=== PATIENT | female | born 1940 | race Caucasian/White ===

== ENCOUNTER 2023-03-04 10:50 | Emergency (ER) | payer MEDICARE, OTHER, SELFPAY ==
[2023-03-04 10:54] VITALS: BP 177/61; PULSE 73; RESP 20; TEMP 36.8; O2SAT 96; BMI 34.6
--- NOTE | 2023-03-04 11:02 | ED.GENADUL1 ---
HPI - General Adult General Chief complaint: Extremity Injury, Upper Stated complaint: UPPER EXTREMITY PAIN RIGHT PINKIE Time Seen by Provider: 03/04/23 10:54 Source: family Mode of arrival: Wheelchair Limitations: no limitations History of Present Illness HPI narrative: 82-year-old female presents for raised area on the right 3rd finger. She's had it for a few days. She states she has arthritis her this happened to her before and she states her doctor had to open it. She has not had any drainage or any injury to it.symptom is continuous. Pain is mild. Related Data Home Medications Medication Instructions Recorded Confirmed albuterol sulfate 2.5 mg/3 mL 2.5 mg continuous nebulization Q4H 03/04/23 03/04/23 (0.083 %) solution for nebulization PRN shortness of breath or wheezing albuterol sulfate 90 mcg/actuation 2 puff inhalation Q4H PRN 03/04/23 03/04/23 aerosol inhaler shortness of breath or wheezing amlodipine 5 mg tablet 5 mg PO DAILY 03/04/23 03/04/23 anastrozole 1 mg tablet 1 mg PO DAILY 03/04/23 03/04/23 apixaban 5 mg tablet (Eliquis) 5 mg PO BID 03/04/23 03/04/23 aspirin 81 mg tablet,delayed 81 mg PO DAILY 03/04/23 03/04/23 release (Adult Low Dose Aspirin) furosemide 40 mg tablet 40 mg PO Q12H 03/04/23 03/04/23 glimepiride 4 mg tablet 4 mg PO BID 03/04/23 03/04/23 hydralazine 100 mg tablet 100 mg PO TID 03/04/23 03/04/23 isosorbide mononitrate 60 mg 60 mg PO DAILY 03/04/23 03/04/23 tablet,extended release 24 hr levothyroxine 112 mcg tablet 112 mcg PO DAILY 03/04/23 03/04/23 liothyronine 5 mcg tablet 10 mcg PO DAILY 03/04/23 03/04/23 meloxicam 15 mg tablet 15 mg PO DAILY 03/04/23 03/04/23 metformin 500 mg tablet 500 mg PO BID 03/04/23 03/04/23 metoprolol succinate 200 mg 200 mg PO DAILY 03/04/23 03/04/23 tablet,extended release 24 hr simvastatin 20 mg tablet 20 mg PO BEDTIME 03/04/23 03/04/23 sucralfate 1 gram tablet 1 g PO QID 03/04/23 03/04/23 Previous Rx's Medication Instructions Recorded sulfamethoxazole 800 1 tab PO BID #14 tabs 03/04/23 mg-trimethoprim 160 mg tablet (Bactrim DS) Allergies Allergy/AdvReac Type Severity Reaction Status Date / Time oxycodone AdvReac Severe nausea and Verified 03/04/23 11:00 vomiting tramadol AdvReac Severe Vomiting Verified 03/04/23 11:00 cefdinir AdvReac Unknown Vomiting Verified 03/04/23 11:00 ciprofloxacin AdvReac Unknown Vomiting Verified 03/04/23 11:00 Review of Systems ROS Narrative A ten point review of systems is negative except as noted above. Exam Narrative Exam Narrative: Nurses note and vital signs reviewed and patient is not hypoxic. General: The patient appears well and in no apparent distress. Patient is resting comfortably on cart. Skin: Warm, dry, no pallor noted. Head: Normocephalic, atraumatic Eye: Normal conjunctiva, no drainage Ears, Nose, Mouth, and Throat: oral mucosa is moist. Nares patent. Cardiovascular: not tachycardic Respiratory: Patient is in no distress, no accessory muscle use, lungs are clear to auscultation, no wheezing, rales or rhonchi Back: non-tender GI: soft and nontender Musculoskeletal: right 3rd finger over the DIP extensor side has plates raised area which is tender. No open areas or drainage. Neurological: A&O, normal speech Psychiatric: Cooperative Constitutional Vital Signs - 24 hr 03/04/23 10:54 Temperature 98.3 F Pulse Rate [Monitor] 73 Respiratory Rate 20 Blood Pressure [Left Arm] 177/61 H Pulse Oximetry 96 Course Vital Signs Vital signs: Vital Signs Temperature 98.3 F 03/04/23 10:54 Pulse Rate 73 03/04/23 10:54 Respiratory Rate 20 03/04/23 10:54 Blood Pressure 177/61 H 03/04/23 10:54 Pulse Oximetry 96 03/04/23 10:54 Temperature 98.3 F 03/04/23 10:54 Pulse Rate 73 03/04/23 10:54 Respiratory Rate 20 03/04/23 10:54 Blood Pressure 177/61 H 03/04/23 10:54 Pulse Oximetry 96 03/04/23 10:54 Medical Decision Making MDM Narrative Medical decision making narrative: the abscess has been opened and drained of purulent material. She'll use warm soaks four times a day and was prescribed Bactrim because of ALLERGIES. She'll follow-up with her doctor. Treatment diagnosis and follow-up were discussed with the patient. Differential Diagnosis Differential Diagnosis: arthritis, abscess, cellulitis Discharge Plan Discharge Chief Complaint: Extremity Injury, Upper Clinical Impression: Abscess Patient Disposition: Home, Self-Care Time of Disposition Decision: 11:35 Condition: Good Mode of Transportation: Private Vehicle Prescriptions / Home Meds: New sulfamethoxazole-trimethoprim [Bactrim DS] 800-160 mg tablet 1 tab PO BID Qty: 14 0RF No Action albuterol sulfate 2.5 mg /3 mL (0.083 %) solution for nebulization 2.5 mg continuous nebulization Q4H PRN (Reason: shortness of breath or wheezing) albuterol sulfate 90 mcg/actuation HFA aerosol inhaler 2 puff INHALATION Q4H PRN (Reason: shortness of breath or wheezing) amlodipine 5 mg tablet 5 mg PO DAILY anastrozole 1 mg tablet 1 mg PO DAILY aspirin [Adult Low Dose Aspirin] 81 mg tablet,delayed release (DR/EC) 81 mg PO DAILY Eliquis 5 mg tablet 5 mg PO BID furosemide 40 mg tablet 40 mg PO Q12H glimepiride 4 mg tablet 4 mg PO BID hydralazine 100 mg tablet 100 mg PO TID isosorbide mononitrate 60 mg tablet extended release 24 hr 60 mg PO DAILY levothyroxine 112 mcg tablet 112 mcg PO DAILY liothyronine 5 mcg tablet 10 mcg PO DAILY meloxicam 15 mg tablet 15 mg PO DAILY metformin 500 mg tablet 500 mg PO BID metoprolol succinate 200 mg tablet extended release 24 hr 200 mg PO DAILY simvastatin 20 mg tablet 20 mg PO BEDTIME sucralfate 1 gram tablet 1 g PO QID Instructions: Abscess (ED) Additional Instructions: warm soaks four times a day Stand Alone Forms: Portal Instructions Referrals: Gil Blake MD [Primary Care Provider] - 1 week
== END 2023-03-04 11:54 | disposition home or self-care (01) ==
PROVIDERS: Emergency Provider Emergency Medicine; PCP Family Medicine
DX: L02.511 Cutaneous abscess of right hand (principal); Z79.899 Other long term (current) drug therapy; Z79.890 Hormone replacement therapy; M19.90 Unspecified osteoarthritis, unspecified site; Z79.82 Long term (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 aspirin
CPT/HCPCS: 99282

== ENCOUNTER 2023-03-17 06:45 | Outpatient (OUT) | payer MEDICARE, OTHER, SELFPAY ==
[2023-03-17 09:45] LABS: Estimated Average Glucose 160 mg/dL; Glycohemoglobin A1C 7.2 % (4.5-6.2)
== END 2023-03-17 06:46 | disposition home or self-care (01) ==
LOC: LAB 06:48
PROVIDERS: PCP Family Medicine; Visit Provider Family Medicine
DX: R73.09 Other abnormal glucose (principal)
CPT/HCPCS: 36415; 83036

== ENCOUNTER 2023-03-27 07:29 | Outpatient (OUT) | payer MEDICARE, OTHER, SELFPAY ==
[2023-03-27 14:17] VITALS: BP 158/71; PULSE 60; RESP 20; TEMP 37.1; O2SAT 97
--- NOTE | 2023-03-27 14:25 | PC.NURSE ---
1417: Pt. brought to [facility] via w/c per volunteer. Pt. assisted into recliner chair. VSS. Allergies verified. Offered beverage or snack, pt. declines. Awaiting lab results before med administration.
[2023-03-27 14:37] LABS: Calcium 9.5 mg/dL (8.5-10.1); Estimated GFR (African America 49 (>=60); Estimated GFR (Non-African Ame 40 (>=60)
[2023-03-27] MEDS: DENOSUMAB 60 MG/ML SYRINGE SUBQ (14:56)
--- NOTE | 2023-03-27 15:02 | PC.NURSE ---
1456: Pt. medicated with Prolia 60mg SQ to left arm. No bleeding to site. Pt. tolerated without c/o. 1501: Pt. without c/o and denies adverse reaction from previous injections of med. [facility] to await son to pick her up for d/c to home.
== END 2023-03-27 07:30 | disposition home or self-care (01) ==
LOC: LAB 07:30
PROVIDERS: PCP Family Medicine; Visit Provider Family Medicine
DX: M85.80 Other specified disorders of bone density and structure, unspecified site (principal)
CPT/HCPCS: 36415; 82310; 82565; 96372; J0897

== ENCOUNTER 2023-05-10 14:01 | Outpatient (OUT) | payer MEDICARE, OTHER, SELFPAY ==
[2023-05-10 14:33] LABS: Bilirubin Urine NEGATIVE (NEGATIVE); Blood Urine NEGATIVE (NEGATIVE); Clarity Urine CLEAR (CLEAR); Color Urine LT. YELLOW (YELLOW); Glucose Urine UA NEGATIVE (NEGATIVE); Ketones Urine NEGATIVE (NEGATIVE); Leukocyte Esterase Urine LARGE (NEGATIVE); Nitrite Urine NEGATIVE (NEGATIVE); Protein Urine NEGATIVE (NEG/TRACE); Urobilinogen Urine 0.2 EU/dL (0.2-1.0)
[2023-05-10 15:05] LABS: Bacteria Urine SMALL #/HPF (NONE SEEN); Cast Seen? NONE SEEN #/LPF (NONE SEEN); Crystals Seen? None Seen #/HPF (None Seen); Mucus Urine NONE SEEN (NONE SEEN); RBC Urine 0-2 #/HPF (0-2); Squamous Epithelial Cell Urine FEW #/LPF (NONE/RARE)
== END 2023-05-10 14:02 | disposition home or self-care (01) ==
LOC: LAB 14:05
PROVIDERS: PCP Family Medicine; Visit Provider Family Medicine
DX: N18.2 Chronic kidney disease, stage 2 (mild) (principal); R82.998 Other abnormal findings in urine
CPT/HCPCS: 81001; 87086

== ENCOUNTER 2023-06-08 10:28 | Outpatient (OUT) | payer MEDICARE, OTHER, SELFPAY ==
[2023-06-08 11:28] LABS: Basophils Percent Auto 0.3 % (0.2-2.0); Eosinophils Absolute Auto 0.2 10^3/uL (0.0-0.7); Eosinophils Percent Auto 1.6 % (0.9-7.0); Hematocrit 34.7 % (36.0-48.0); Hemoglobin 11.1 g/dL (12.0-16.0); Immature Granulocytes Abs Auto 0.07 10^3/uL (0.00-0.03); Immature Granulocytes Pct Auto 0.6 % (0.0-0.5); Lymphocytes Percent Auto 18.8 % (20.5-60.0); Mean Corpuscular Hemoglobin 30.2 pg (26.7-34.0); Mean Corpuscular Volume 94.6 fL (81.0-99.0); Mean Platelet Volume 9.5 fL (9.5-13.5); Monocytes Absolute Auto 1.1 10^3/uL (0.3-0.8); Neutrophils Absolute Auto 7.5 10^3/uL (1.4-6.5); Neutrophils Percent Auto 68.7 % (43.0-75.0); Platelet Count 245 10^3/uL (150-450); Red Blood Count 3.67 10^6/uL (4.20-5.40); Red Cell Distribution Width 13.8 % (11.0-15.0); White Blood Count 10.9 10^3/uL (4.0-11.0)
[2023-06-08 12:09] LABS: Alanine Aminotransferase 18 U/L (14-59); Albumin Globulin Ratio 0.7; Albumin Level 3.1 g/dL (3.4-5.0); Alkaline Phosphatase 74 U/L (46-116); Anion Gap 13.8; Aspartate Amino Transferase 12 U/L (15-37); Bilirubin Total 0.3 mg/dL (0.2-1.0); Calcium 8.8 mg/dL (8.5-10.1); Carbon Dioxide 31.3 mmol/L (21.0-32.0); Chloride 100 mmol/L (98-107); Estimated GFR (African America 48 (>=60); Estimated GFR (Non-African Ame 39 (>=60); Globulin 4.4 g/dL; Glucose 120 mg/dL (74-106); Potassium 3.1 mmol/L (3.5-5.1); Sodium 142 mmol/L (136-145); Total Protein 7.5 g/dL (6.4-8.2); Uric Acid 11.8 mg/dL (2.6-6.0)
== END 2023-06-08 10:29 | disposition home or self-care (01) ==
LOC: LAB 10:30
PROVIDERS: PCP Family Medicine; Visit Provider Internal Medicine Rheumatology
DX: M19.90 Unspecified osteoarthritis, unspecified site (principal); Z79.899 Other long term (current) drug therapy; M10.9 Gout, unspecified
CPT/HCPCS: 36415; 80053; 84550; 85025

== ENCOUNTER 2023-07-22 06:58 | Outpatient (OUT) | payer MEDICARE, OTHER, SELFPAY ==
[2023-07-22 07:23] LABS: Basophils Absolute Auto 0.1 10^3/uL (0.0-0.1); Basophils Percent Auto 0.7 % (0.2-2.0); Eosinophils Absolute Auto 0.2 10^3/uL (0.0-0.7); Eosinophils Percent Auto 1.8 % (0.9-7.0); Hematocrit 35.1 % (36.0-48.0); Hemoglobin 10.9 g/dL (12.0-16.0); Immature Granulocytes Abs Auto 0.03 10^3/uL (0.00-0.03); Immature Granulocytes Pct Auto 0.4 % (0.0-0.5); Lymphocytes Absolute Auto 2.9 10^3/uL (1.2-3.8); Lymphocytes Percent Auto 34.3 % (20.5-60.0); Mean Corpuscular HGB Conc 31.1 g/dL (29.9-35.2); Mean Corpuscular Hemoglobin 30.3 pg (26.7-34.0); Mean Corpuscular Volume 97.5 fL (81.0-99.0); Mean Platelet Volume 9.3 fL (9.5-13.5); Monocytes Percent Auto 11.4 % (1.7-12.0); Neutrophils Absolute Auto 4.3 10^3/uL (1.4-6.5); Neutrophils Percent Auto 51.4 % (43.0-75.0); Platelet Count 243 10^3/uL (150-450); Red Cell Distribution Width 14.4 % (11.0-15.0); White Blood Count 8.3 10^3/uL (4.0-11.0)
[2023-07-22 08:03] LABS: Estimated Average Glucose 160 mg/dL; Glycohemoglobin A1C 7.2 % (4.5-6.2)
[2023-07-22 08:16] LABS: Alanine Aminotransferase 21 U/L (14-59); Albumin Globulin Ratio 0.9; Albumin Level 3.4 g/dL (3.4-5.0); Alkaline Phosphatase 78 U/L (46-116); Anion Gap 13.4; Aspartate Amino Transferase 6 U/L (15-37); BUN Creatinine Ratio 24.5; Bilirubin Total 0.3 mg/dL (0.2-1.0); Calcium 8.9 mg/dL (8.5-10.1); Carbon Dioxide 30.4 mmol/L (21.0-32.0); Chloride 103 mmol/L (98-107); Chol HDL Ratio 4.9; Cholesterol 204 mg/dL (<=200); Estimated GFR (African America 37 (>=60); Estimated GFR (Non-African Ame 30 (>=60); Free T3 2.23 pg/mL (2.18-3.98); Globulin 3.9 g/dL; Glucose 130 mg/dL (74-106); HDL Cholesterol 42 mg/dL (40-60); Potassium 4.8 mmol/L (3.5-5.1); Sodium 142 mmol/L (136-145); Thyroid Stimulating Hormone 1.003 uIU/mL (0.358-3.740); Total Protein 7.3 g/dL (6.4-8.2); Triglycerides 460 mg/dL (<=150)
[2023-07-22 08:41] LABS: LDL Cholesterol Direct 71 mg/dL
== END 2023-07-22 06:59 | disposition home or self-care (01) ==
PROVIDERS: PCP Family Medicine; Visit Provider Family Medicine
DX: I12.9 Hypertensive chronic kidney disease with stage 1 through stage 4 chronic kidney disease, or unspecified chronic kidney disease (principal); N18.2 Chronic kidney disease, stage 2 (mild); J44.9 Chronic obstructive pulmonary disease, unspecified; I25.10 Atherosclerotic heart disease of native coronary artery without angina pectoris; E78.1 Pure hyperglyceridemia; M10.9 Gout, unspecified; M19.90 Unspecified osteoarthritis, unspecified site; Z51.81 Encounter for therapeutic drug level monitoring
CPT/HCPCS: 36415; 80053; 80061; 83036; 83721; 84436; 84443; 84481; 85025

== ENCOUNTER 2023-08-09 15:05 | Outpatient (OUT) | payer MEDICARE, OTHER, SELFPAY ==
[2023-08-09 15:32] LABS: Basophils Percent Auto 0.2 % (0.2-2.0); Eosinophils Absolute Auto 0.2 10^3/uL (0.0-0.7); Eosinophils Percent Auto 2.4 % (0.9-7.0); Hematocrit 34.3 % (36.0-48.0); Hemoglobin 10.9 g/dL (12.0-16.0); Immature Granulocytes Abs Auto 0.05 10^3/uL (0.00-0.03); Immature Granulocytes Pct Auto 0.5 % (0.0-0.5); Lymphocytes Absolute Auto 2.4 10^3/uL (1.2-3.8); Lymphocytes Percent Auto 26.6 % (20.5-60.0); Mean Corpuscular HGB Conc 31.8 g/dL (29.9-35.2); Mean Corpuscular Hemoglobin 30.6 pg (26.7-34.0); Mean Corpuscular Volume 96.3 fL (81.0-99.0); Mean Platelet Volume 9.5 fL (9.5-13.5); Monocytes Absolute Auto 0.9 10^3/uL (0.3-0.8); Monocytes Percent Auto 9.4 % (1.7-12.0); Neutrophils Absolute Auto 5.6 10^3/uL (1.4-6.5); Neutrophils Percent Auto 60.9 % (43.0-75.0); Platelet Count 254 10^3/uL (150-450); Red Blood Count 3.56 10^6/uL (4.20-5.40); Red Cell Distribution Width 14.6 % (11.0-15.0); White Blood Count 9.2 10^3/uL (4.0-11.0)
[2023-08-09 15:56] LABS: Alanine Aminotransferase 23 U/L (14-59); Albumin Globulin Ratio 0.8; Albumin Level 3.2 g/dL (3.4-5.0); Alkaline Phosphatase 81 U/L (46-116); Anion Gap 12.9; Aspartate Amino Transferase 13 U/L (15-37); Bilirubin Total 0.2 mg/dL (0.2-1.0); Calcium 8.6 mg/dL (8.5-10.1); Chloride 103 mmol/L (98-107); Estimated GFR (African America 46 (>=60); Estimated GFR (Non-African Ame 38 (>=60); Globulin 3.9 g/dL; Glucose 184 mg/dL (74-106); Potassium 3.9 mmol/L (3.5-5.1); Sodium 142 mmol/L (136-145); Total Protein 7.1 g/dL (6.4-8.2); Uric Acid 5.5 mg/dL (2.6-6.0)
== END 2023-08-09 15:06 | disposition home or self-care (01) ==
LOC: LAB 15:08
PROVIDERS: PCP Family Medicine; Visit Provider Internal Medicine Rheumatology
DX: M10.9 Gout, unspecified (principal); M19.90 Unspecified osteoarthritis, unspecified site; Z51.81 Encounter for therapeutic drug level monitoring
CPT/HCPCS: 36415; 80053; 84550; 85025

== ENCOUNTER 2023-08-20 07:55 | Inpatient (IN) | payer MEDICARE, OTHER, SELFPAY ==
[2023-08-20] VITALS (15 sets, daily range): BP systolic 110–163; BP diastolic 50–96; PULSE 72–142; RESP 18–26; TEMP 36.7–37.3; O2SAT 82–95; BMI 37.8; BMI 35.9
--- NOTE | 2023-08-20 08:09 | XR_ITS ---
The [address] [address] Patient Name: OSCAR MCLEOD MRN: [id number] date: 1940 Sex: F Assigned Patient Location: ER Current Patient Location: ER Accession/Order Number: [id number] Exam Date: 08/20/2023 08:28 Report Date: 08/20/2023 08:46 At the request of: JULIET GERMAN Procedure: XR chest 1V EXAM: XR chest 1V INDICATION: body pain, history of chronic obstructive pulmonary. COMPARISON: Chest radiograph 10/11/2022 TECHNIQUE: Single frontal view of the chest FINDINGS: Normal cardiomediastinal contours. No acute infiltrative process. No pleural effusion or pneumothorax. No acute osseous abnormality. Advanced degenerative changes of the right shoulder. XR/XR chest 1V IMPRESSION: No acute cardiopulmonary process. Electronically authenticated by: MAC COLLINS Date: 08/20/2023 08:46
--- NOTE | 2023-08-20 08:09 | ECG_ITS ---
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
--- NOTE | 2023-08-20 08:10 | ED_ITS ---
HPI - General Adult General Chief complaint: Back Pain/Injury Stated complaint: TOTAL BODY PAIN Time Seen by Provider: 08/20/23 08:04 Source: patient Mode of arrival: ambulance Limitations: physical limitation History of Present Illness HPI narrative: 82-year-old female presents for body pain. She's had this over her whole body continuously for the past four days. No recent injury. She had diarrhea several weeks ago but that resolved and she's had no vomiting or cough and she doesn't complain of shortness of breath. She has a history of chronic obstructive pulmonary disease. Related Data Home Medications Medication Instructions Recorded Confirmed albuterol sulfate 2.5 mg/3 mL 2.5 mg continuous nebulization Q4H 03/04/23 08/20/23 (0.083 %) solution for nebulization PRN shortness of breath or wheezing albuterol sulfate 90 mcg/actuation 2 puff inhalation Q4H PRN 03/04/23 08/20/23 aerosol inhaler shortness of breath or wheezing amlodipine 5 mg tablet 5 mg PO DAILY 03/04/23 08/20/23 anastrozole 1 mg tablet 1 mg PO DAILY 03/04/23 08/20/23 apixaban 5 mg tablet (Eliquis) 5 mg PO BID 03/04/23 08/20/23 aspirin 81 mg tablet,delayed 81 mg PO DAILY 03/04/23 08/20/23 release (Adult Low Dose Aspirin) furosemide 40 mg tablet 40 mg PO Q12H 03/04/23 08/20/23 glimepiride 4 mg tablet 4 mg PO BID 03/04/23 08/20/23 hydralazine 100 mg tablet 100 mg PO TID 03/04/23 08/20/23 isosorbide mononitrate 60 mg 60 mg PO DAILY 03/04/23 08/20/23 tablet,extended release 24 hr levothyroxine 112 mcg tablet 112 mcg PO DAILY 03/04/23 08/20/23 liothyronine 5 mcg tablet 10 mcg PO DAILY 03/04/23 03/04/23 meloxicam 15 mg tablet 15 mg PO DAILY 03/04/23 03/04/23 metformin 500 mg tablet 500 mg PO BID 03/04/23 08/20/23 metoprolol succinate 200 mg 200 mg PO DAILY 03/04/23 08/20/23 tablet,extended release 24 hr simvastatin 20 mg tablet 20 mg PO BEDTIME 03/04/23 08/20/23 sucralfate 1 gram tablet 1 g PO QID 03/04/23 08/20/23 febuxostat 40 mg tablet 40 mg PO DAILY 08/20/23 08/20/23 potassium chloride 20 mEq 20 meq PO BID 08/20/23 08/20/23 tablet,extended release(part/cryst) (Klor-Con M) Previous Rx's Medication Instructions Recorded sulfamethoxazole 800 1 tab PO BID #14 tabs 03/04/23 mg-trimethoprim 160 mg tablet (Bactrim DS) Allergies Allergy/AdvReac Type Severity Reaction Status Date / Time oxycodone AdvReac Severe nausea and Verified 08/20/23 08:04 vomiting tramadol AdvReac Severe Vomiting Verified 08/20/23 08:04 cefdinir AdvReac Unknown Vomiting Verified 08/20/23 08:04 ciprofloxacin AdvReac Unknown Vomiting Verified 08/20/23 08:04 Review of Systems ROS Narrative A ten point review of systems is negative except as noted above. PFSH PFSH Social History Smoking status: Former smoker Exam Narrative Exam Narrative: Nurses note and vital signs reviewed and patient is not hypoxic. General: The patient appears well and in no apparent distress. Patient is resting comfortably on cart. Skin: Warm, dry, no pallor noted. There is no rash noted. Head: Normocephalic, atraumatic Eye: Normal conjunctiva, no drainage Ears, Nose, Mouth, and Throat: oral mucosa is moist. Nares patent. Cardiovascular: Regular Rate and Rhythm Respiratory: Patient is in no distress, no accessory muscle use, lungs are clear to auscultation, no wheezing, rales or rhonchi Back: non-tender GI: soft and nontender Musculoskeletal: The patient has no evidence of calf tenderness, no pitting edema, symmetrical pulses noted bilaterally Neurological: A&O x4, normal speech Psychiatric: Cooperative Constitutional Vital Signs, click to edit/add: Last Vital Signs Temp 98.0 F 08/20/23 09:52 Pulse 77 08/20/23 08:00 Resp 20 08/20/23 08:00 BP 163/58 H 08/20/23 08:00 Pulse Ox 95 08/20/23 09:52 O2 Del Method Room Air 08/20/23 08:28 O2 Flow Rate 2 08/20/23 09:52 Course Vital Signs Vital signs: Vital Signs Temperature 99.1 F 08/20/23 08:00 Pulse Rate 77 08/20/23 08:00 Respiratory Rate 20 08/20/23 08:00 Blood Pressure 163/58 H 08/20/23 08:00 Pulse Oximetry 92 L 08/20/23 08:00 Oxygen Delivery Method Room Air 08/20/23 08:00 Temperature 98.0 F 08/20/23 09:52 Pulse Rate 77 08/20/23 08:00 Respiratory Rate 20 08/20/23 08:00 Blood Pressure 163/58 H 08/20/23 08:00 Pulse Oximetry 95 08/20/23 09:52 Oxygen Delivery Method Room Air 08/20/23 08:28 Oxygen Delivery Flow Rate 2 08/20/23 09:52 Medical Decision Making MDM Narrative Medical decision making narrative: her workup is negative other than very minimally elevated WBC. No evidence of urinary tract infection and Covid and influenza tests are negative. She was given Tylenol No. 3 without improvement and then was given morphine and feels improved. I've avoided anti-inflammatories because she is on Eliquis. She was given the option of observation status versus discharge home and the patient and her family have elected to be kept in the hospital overnight. They have concerns about her being able to ambulate. Findings are discussed with the family. Differential Diagnosis Differential Diagnosis: urinary tract infection, arthralgia, Covid, influenza Lab Data Lab results reviewed: Yes I reviewed the patient's lab results Labs: Lab Results 08/20/23 08/20/23 08/20/23 Range/Units 08:05 08:10 09:10 WBC 14.1 H (4.0-11.0) 10^3/uL RBC 3.71 L (4.20-5.40) 10^6/uL Hgb 11.2 L (12.0-16.0) g/dL Hct 35.3 L (36.0-48.0) % MCV 95.1 (81.0-99.0) fL MCH 30.2 (26.7-34.0) pg MCHC 31.7 (29.9-35.2) g/dL RDW 14.7 (11.0-15.0) % Plt Count 240 (150-450) 10^3/uL MPV 9.6 (9.5-13.5) fL Neut % (Auto) 73.2 (43.0-75.0) % Lymph % (Auto) 13.5 L (20.5-60.0) % [place] % (Auto) 12.3 H (1.7-12.0) % Eos % (Auto) 0.4 L (0.9-7.0) % Baso % (Auto) 0.2 (0.2-2.0) % Neut # (Auto) 10.3 H (1.4-6.5) 10^3/uL Lymph # (Auto) 1.9 (1.2-3.8) 10^3/uL [place] # (Auto) 1.7 H (0.3-0.8) 10^3/uL Eos # (Auto) 0.1 (0.0-0.7) 10^3/uL Baso # (Auto) 0.0 (0.0-0.1) 10^3/uL Abs Immat Gran (auto) 0.05 H (0.00-0.03) 10^3/uL Imm/Tot Granulo (auto) 0.4 (0.0-0.5) % Sodium 140 (136-145) mmol/L Potassium 3.4 L (3.5-5.1) mmol/L Chloride 100 (98-107) mmol/L Carbon Dioxide 30.1 (21.0-32.0) mmol/L Anion Gap 13.3 BUN 24.0 H (7.0-18.0) mg/dL Creatinine 1.16 H (0.55-1.02) mg/dL Est GFR ( Amer) 54 L (>=60) Est GFR (Non-Af Amer) 45 L (>=60) BUN/Creatinine Ratio 20.7 Glucose 164 H (74-106) mg/dL Calcium 9.1 (8.5-10.1) mg/dL Troponin I High Sens 21.8 (4.0-51.3) pg/mL Urine Color Yellow (YELLOW) Urine Clarity Clear (CLEAR) Urine pH 5.5 (5.0-9.0) Ur Specific [place] 1.020 (1.005-1.025) Urine Protein Trace (NEG/TRACE) mg/dL Urine Glucose (UA) Negative (NEGATIVE) mg/dL Urine Ketones Negative (NEGATIVE) mg/dL Urine Occult Blood Negative (NEGATIVE) Urine Nitrite Negative (NEGATIVE) Urine Bilirubin Negative (NEGATIVE) Urine Urobilinogen 0.2 (0.2-1.0) EU/dL Ur Leukocyte Esterase Negative (NEGATIVE) Urine RBC None seen (0-2) #/HPF Urine WBC None seen (NONE SEEN) #/HPF Ur Squamous Epith Cells Few A (NONE/RARE) #/LPF Urine Bacteria None seen (NONE SEEN) #/HPF Urine Mucus None seen (NONE SEEN) SARS-CoV-2 (PCR) Negative (NEGATIVE) Influenza Type A Ag Negative Influenza Type B Ag Negative Imaging Data Chest x-ray: Radiologist's impression: Procedure: XR chest 1V EXAM: XR chest 1V INDICATION: body pain, history of chronic obstructive pulmonary. COMPARISON: Chest radiograph 10/11/2022 TECHNIQUE: Single frontal view of the chest FINDINGS: Normal cardiomediastinal contours. No acute infiltrative process. No pleural effusion or pneumothorax. No acute osseous abnormality. Advanced degenerative changes of the right shoulder. IMPRESSION: No acute cardiopulmonary process. Electronically authenticated by: MAC COLLINS Date: 08/20/2023 08:46 ECG Data Attestation: I personally reviewed and interpreted this ECG as follows: (EKG on my interpretation shows sinus rhythm with PVCs) Discharge Plan Discharge Chief Complaint: Back Pain/Injury Clinical Impression: Arthralgia, Difficulty in walking Patient Disposition: Admitted as Observation Time of Disposition Decision: 12:18 Condition: Good Prescriptions / Home Meds: No Action albuterol sulfate 2.5 mg /3 mL (0.083 %) solution for nebulization 2.5 mg continuous nebulization Q4H PRN (Reason: shortness of breath or wheezing) albuterol sulfate 90 mcg/actuation HFA aerosol inhaler 2 puff INHALATION Q4H PRN (Reason: shortness of breath or wheezing) amlodipine 5 mg tablet 5 mg PO DAILY anastrozole 1 mg tablet 1 mg PO DAILY aspirin [Adult Low Dose Aspirin] 81 mg tablet,delayed release (DR/EC) 81 mg PO DAILY Eliquis 5 mg tablet 5 mg PO BID furosemide 40 mg tablet 40 mg PO Q12H glimepiride 4 mg tablet 4 mg PO BID hydralazine 100 mg tablet 100 mg PO TID isosorbide mononitrate 60 mg tablet extended release 24 hr 60 mg PO DAILY levothyroxine 112 mcg tablet 112 mcg PO DAILY liothyronine 5 mcg tablet 10 mcg PO DAILY meloxicam 15 mg tablet 15 mg PO DAILY metformin 500 mg tablet 500 mg PO BID metoprolol succinate 200 mg tablet extended release 24 hr 200 mg PO DAILY simvastatin 20 mg tablet 20 mg PO BEDTIME sucralfate 1 gram tablet 1 g PO QID sulfamethoxazole-trimethoprim [Bactrim DS] 800-160 mg tablet 1 tab PO BID Qty: 14 0RF febuxostat 40 mg tablet 40 mg PO DAILY potassium chloride [Klor-Con M20] 20 mEq tablet,ER particles/crystals 20 meq PO BID Referrals: Gil Blake MD [Primary Care Provider] - 1 week
[2023-08-20 08:26] LABS: Basophils Percent Auto 0.2 % (0.2-2.0); Eosinophils Absolute Auto 0.1 10^3/uL (0.0-0.7); Eosinophils Percent Auto 0.4 % (0.9-7.0); Hematocrit 35.3 % (36.0-48.0); Hemoglobin 11.2 g/dL (12.0-16.0); Immature Granulocytes Abs Auto 0.05 10^3/uL (0.00-0.03); Immature Granulocytes Pct Auto 0.4 % (0.0-0.5); Lymphocytes Absolute Auto 1.9 10^3/uL (1.2-3.8); Lymphocytes Percent Auto 13.5 % (20.5-60.0); Mean Corpuscular HGB Conc 31.7 g/dL (29.9-35.2); Mean Corpuscular Hemoglobin 30.2 pg (26.7-34.0); Mean Corpuscular Volume 95.1 fL (81.0-99.0); Mean Platelet Volume 9.6 fL (9.5-13.5); Monocytes Absolute Auto 1.7 10^3/uL (0.3-0.8); Monocytes Percent Auto 12.3 % (1.7-12.0); Neutrophils Absolute Auto 10.3 10^3/uL (1.4-6.5); Neutrophils Percent Auto 73.2 % (43.0-75.0); Platelet Count 240 10^3/uL (150-450); Red Blood Count 3.71 10^6/uL (4.20-5.40); Red Cell Distribution Width 14.7 % (11.0-15.0); White Blood Count 14.1 10^3/uL (4.0-11.0)
[2023-08-20 08:34] LABS: Influenza Virus A Antigen Negative; Influenza Virus B Antigen Negative; Internal Control Within Normal Limits; SARS-CoV-2 Ag NEGATIVE (NEGATIVE)
[2023-08-20 08:41] LABS: Anion Gap 13.3; BUN Creatinine Ratio 20.7; Calcium 9.1 mg/dL (8.5-10.1); Carbon Dioxide 30.1 mmol/L (21.0-32.0); Chloride 100 mmol/L (98-107); Estimated GFR (African America 54 (>=60); Estimated GFR (Non-African Ame 45 (>=60); Glucose 164 mg/dL (74-106); Potassium 3.4 mmol/L (3.5-5.1); Sodium 140 mmol/L (136-145); Troponin I High Sensitivity 21.8 pg/mL (4.0-51.3)
[2023-08-20 09:25] LABS: Bilirubin Urine NEGATIVE (NEGATIVE); Blood Urine NEGATIVE (NEGATIVE); Clarity Urine CLEAR (CLEAR); Color Urine YELLOW (YELLOW); Glucose Urine UA NEGATIVE (NEGATIVE); Ketones Urine NEGATIVE (NEGATIVE); Leukocyte Esterase Urine NEGATIVE (NEGATIVE); Nitrite Urine NEGATIVE (NEGATIVE); Protein Urine TRACE mg/dL (NEG/TRACE); Urobilinogen Urine 0.2 EU/dL (0.2-1.0); pH Urine 5.5 (5.0-9.0)
[2023-08-20 09:35] LABS: Bacteria Urine NONE SEEN #/HPF (NONE SEEN); Mucus Urine NONE SEEN (NONE SEEN); Squamous Epithelial Cell Urine FEW #/LPF (NONE/RARE); WBC Urine NONE SEEN #/HPF (NONE SEEN)
[2023-08-20 09:48] LABS: RBC Urine NONE SEEN #/HPF (0-2)
[2023-08-20] MEDS: MORPHINE SULFATE 4 MG/ML VIAL IV (10:15)
[2023-08-20 12:57] LABS: Uric Acid 6.4 mg/dL (2.6-6.0)
[2023-08-20 12:59] LABS: Creatine Kinase 43 U/L (26-192)
[2023-08-20 13:15] LABS: C Reactive Protein 19.81 mg/dL (<=0.50)
--- NOTE | 2023-08-20 13:59 | PM.HP ---
H&P: HPI History of Present Illness Chief complaint: TOTAL BODY PAIN ARTHRALGIA Narrative: patient is a 82-year-old female with past medical history of atrial fibrillation on chronic anticoagulation, gouty arthritis, rheumatoid arthritis, type 2 diabetes, hypertension, coronary artery disease status post stents ?5, chronic obstructive pulmonary disease,k hypothyroidism. patient reports she has been up in a poor state of health over the last several weeks. Around time she had a seven day course of diarrhea which led to low potassium levels and the need to take a supplement. She was also found during that time to be anemic and was placed on iron supplement. 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 Her last dose of meloxicam was on Monday last week. Over the course of this week she has experienced also a fall that she states her right leg gave out and she fell onto her right side. It is been difficult to put weight on her right hip and having some significant pain in the right thigh. On Monday of this week developed a slight runny nose some congestion and body aches. She notes that she just hurts all over her shoulders and hips legs hands everything hurts. She denies any fevers or chills but states that she is used to two nebulizer treatments and her albuterol inhaler the last two days. She denies any shortness of breath or chest pain or cough. She reports that her diarrhea and nausea and vomiting have subsided. She states that it has been unbearable to try to move around the house and use her walker so her brought her into the Emergency Room today because of her weakness. Patient was admitted for further workup. Review of Systems ROS Narrative ROS: a complete review of systems were reviewed with patient and are positive as below or listed in History of Chief Complaint. General: no fever, chills, night sweats Head: no headache, trauma, visual changes, nausea or vomiting Skin: no reported rashes, itching or sores Eyes: no blurriness of vision Ears: no reported hearing loss, vertigo, earache, or tinnitus Throat: no sore throat, hoarseness, swelling of neck, or tongue pain Heart: no chest pain Lungs: no shortness of breath, slight cough GI: no diarrhea or vomiting/nausea Urinary: no urinary urgency, frequency or pain Neuro: no numbness or tingling HEM: no bleeding issues or bruising ENDO: thyroid problems Psych: no anxiety or depression Rheum: pain all over body PFSH PFSH Medical History (Updated 08/20/23 @ 14:34 by Radha Cabrales DO) CAD, multiple vessel ?I25.10 - Atherosclerotic heart disease of [place] coronary artery without angina pectoris (ICD-10) Atrial fibrillation ?I48.91 - Unspecified atrial fibrillation (ICD-10) COPD (chronic obstructive pulmonary disease) ?J44.9 - Chronic obstructive pulmonary disease, unspecified (ICD-10) Gouty arthritis ?M10.9 - Gout, unspecified (ICD-10) Hypothyroidism (acquired) ?E03.9 - Hypothyroidism, unspecified (ICD-10) Hypokalemia ?E87.6 - Hypokalemia (ICD-10) Iron deficiency anemia ?D50.9 - Iron deficiency anemia, unspecified (ICD-10) Type 2 diabetes mellitus ?E11.9 - Type 2 diabetes mellitus without complications (ICD-10) Social History Smoking status: Former smoker Meds Home Medications and Allergies Home Medications Medication Instructions Recorded Confirmed Type albuterol sulfate 2.5 mg/3 mL 2.5 mg continuous nebulization Q4H 03/04/23 08/20/23 History (0.083 %) solution for nebulization PRN shortness of breath or wheezing albuterol sulfate 90 mcg/actuation 2 puff inhalation Q4H PRN 03/04/23 08/20/23 History aerosol inhaler shortness of breath or wheezing amlodipine 5 mg tablet 5 mg PO DAILY 03/04/23 08/20/23 History anastrozole 1 mg tablet 1 mg PO DAILY 03/04/23 08/20/23 History apixaban 5 mg tablet (Eliquis) 5 mg PO BID 03/04/23 08/20/23 History aspirin 81 mg tablet,delayed 81 mg PO DAILY 03/04/23 08/20/23 History release (Adult Low Dose Aspirin) furosemide 40 mg tablet 40 mg PO Q12H 03/04/23 08/20/23 History glimepiride 4 mg tablet 4 mg PO BID 03/04/23 08/20/23 History hydralazine 100 mg tablet 100 mg PO TID 03/04/23 08/20/23 History isosorbide mononitrate 60 mg 60 mg PO DAILY 03/04/23 08/20/23 History tablet,extended release 24 hr levothyroxine 112 mcg tablet 112 mcg PO DAILY 03/04/23 08/20/23 History liothyronine 5 mcg tablet 10 mcg PO DAILY 03/04/23 08/20/23 History metformin 500 mg tablet 500 mg PO BID 03/04/23 08/20/23 History metoprolol succinate 200 mg 200 mg PO DAILY 03/04/23 08/20/23 History tablet,extended release 24 hr simvastatin 20 mg tablet 20 mg PO BEDTIME 03/04/23 08/20/23 History sucralfate 1 gram tablet 1 g PO QID 03/04/23 08/20/23 History febuxostat 40 mg tablet 40 mg PO DAILY 08/20/23 08/20/23 History potassium chloride 20 mEq 20 meq PO BID 08/20/23 08/20/23 History tablet,extended release(part/cryst) (Klor-Con M) Allergies Allergy/AdvReac Type Severity Reaction Status Date / Time oxycodone AdvReac Severe nausea and Verified 08/20/23 08:04 vomiting tramadol AdvReac Severe Vomiting Verified 08/20/23 08:04 cefdinir AdvReac Unknown Vomiting Verified 08/20/23 08:04 ciprofloxacin AdvReac Unknown Vomiting Verified 08/20/23 08:04 Exam Narrative Exam Narrative: General: Patient is alert, and oriented to person, place and time Skin: no visible rashes, or ulcers Head: atraumatic, acephalic Eyes: PERRLA, no nystagmus present, conjunctiva clear, no scleral icterus Ears: normal gross auditory acuity Nose: symmetric, no discharge, no maxillary or frontal sinus tenderness Heart: Normal rate and irregular rhythm, no murmurs/rubs/gallops Lungs: no audible wheezes, crackles and normal breath sounds all lung curiel Abdomen: Normal audible bowel sounds, no distension, No palpable masses, no organomegaly, no rebound/guarding/ or rigidity Musculoskeletal: muscle atrophy noted, ROM is limited due to being in hospital bed, no swelling bilateral lower extremities, some tenderness with palpation of the right greater trochanter Vascular: Normal carotid, radial, femoral, posterior tibial, and dorsalis pedis pulses Lymph: no supraclavicular, axillary, or anterior/posterior cervical adenopathy Neuro: CN II-X grossly intact Constitutional Vital Signs, click to edit/add: Last Vital Signs Temp 98.0 F 08/20/23 09:52 Pulse 77 08/20/23 08:00 Resp 20 08/20/23 08:00 BP 163/58 H 08/20/23 08:00 Pulse Ox 95 08/20/23 09:52 O2 Del Method Room Air 08/20/23 08:28 O2 Flow Rate 2 08/20/23 09:52 Results Labs Labs: Short CBC 08/20/23 Range/Units 08:05 WBC 14.1 H (4.0-11.0) 10^3/uL Hgb 11.2 L (12.0-16.0) g/dL Hct 35.3 L (36.0-48.0) % Plt Count 240 (150-450) 10^3/uL BMP 08/20/23 08:05 Sodium 140 Potassium 3.4 L Chloride 100 Carbon Dioxide 30.1 BUN 24.0 H Creatinine 1.16 H Glucose 164 H Calcium 9.1 Cardiac Enzymes 08/20/23 Range/Units 08:05 Total Creatine Kinase 43 (26-192) U/L Urine 08/20/23 Range/Units 09:10 Urine Color Yellow (YELLOW) Urine Clarity Clear (CLEAR) Urine pH 5.5 (5.0-9.0) Ur Specific [place] 1.020 (1.005-1.025) Urine Protein Trace (NEG/TRACE) mg/dL Urine Glucose (UA) Negative (NEGATIVE) mg/dL Assessment and Plan Assessment and Plan (1) Rheumatoid arthritis flare: Assessment and Plan: elevated ESR and CRP, with slight elevation of uric acid level.patient Recently stopped her meloxicam. I will place on some Solu-Medrol and see if this improves symptoms. Continue home medications (2) Acute right hip pain: Assessment and Plan: status post fall will check a x-ray of the right hip and pelvis (3) Weakness: Assessment and Plan: pt/ot evaluation, cardiac markers normal range, place patient on Telemetry, Chest X-ray normal, recent thyroid labs normal CK level normal, elevated inflammatory markers make it more likely Rheum flare. Will treat with steroids and see if symptoms improve. Monitor renal function. 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: without equipment operator intermodal yard use Diabetes mellitus complication status: without complication Qualified Code(s): E11.9 - Type 2 diabetes mellitus without complications (5) Iron deficiency anemia: Assessment and Plan: will check iron, TIBC and ferritin, vitamin B12 and vitamin D levels Qualifiers: Iron deficiency anemia type: unspecified iron deficiency Qualified Code(s): D50.9 - Iron deficiency anemia, unspecified (6) Hypokalemia: Assessment and Plan: 3.4 today, we'll continue home medication (7) Hypothyroidism (acquired): Assessment and Plan: continue home levothyroxine (8) Gouty arthritis: Assessment and Plan: uric acid almost normal at 6.4, continue Uloric (9) COPD (chronic obstructive pulmonary disease): Assessment and Plan: Will check respiratory panel, does not appear to be in exacerbation, normal chest X-ray Qualifiers: COPD type: unspecified COPD Qualified Code(s): J44.9 - Chronic obstructive pulmonary disease, unspecified (10) Atrial fibrillation: Assessment and Plan: continue Eliquis, HR controlled, continue home medications Qualifiers: Atrial fibrillation type: longstanding persistent Qualified Code(s): I48.11 - Longstanding persistent atrial fibrillation (11) CAD, multiple vessel: Assessment and Plan: continue statin Plan patient is a DNRCCA continue Eliquis for DVT prophylaxis patient is in observation status and is not expected to stay more than 2 midnights
--- NOTE | 2023-08-20 14:01 | XR_ITS ---
The [place] [id number] Patient Name: OSCAR MCLEOD MRN: [id number] date: 1940 Sex: F Assigned Patient Location: [place] Current Patient Location: [place] Accession/Order Number: [id number] Exam Date: 08/20/2023 14:20 Report Date: 08/20/2023 15:06 At the request of: REBEKA BOWEI Procedure: XR hip RT 2V w/ pelvis EXAM: XR hip RT 2V w/ pelvis HISTORY: fall/right hip pain COMPARISON: None. TECHNIQUE: 3 views of the right hip FINDINGS: Mild diffuse bony demineralization is seen. No obvious acute displaced fracture is seen. Joint alignment is normal. Joint spaces are preserved. The visualized soft tissues appear unremarkable. XR/XR hip RT 2V w/ pelvis IMPRESSION: Limited examination due to mild diffuse bony demineralization. No definite acute displaced fracture or malalignment is seen. Electronically authenticated by: YAS PULIDO Date: 08/20/2023 15:06
[2023-08-20] MEDS: LACTATED RINGER'S SOLUTION 1,000 ML 75 ML IV (15:06)
[2023-08-20 15:09] LABS: Glucometer 140 mg/dL (74-106)
[2023-08-20 15:13] LABS: Adenovirus NOT DETECTED (NOT DETECTE); Bordetella parapertussis NOT DETECTED (NOT DETECTE); Coronavirus 229E NOT DETECTED (NOT DETECTE); Coronavirus HKU1 NOT DETECTED (NOT DETECTE); Coronavirus NL63 NOT DETECTED (NOT DETECTE); Coronavirus OC43 NOT DETECTED (NOT DETECTE); Human Metapneumovirus NOT DETECTED (NOT DETECTE); Human Rhinovirus/Enterovirus NOT DETECTED (NOT DETECTE); Influenza A NOT DETECTED (NOT DETECTE); Influenza B NOT DETECTED (NOT DETECTE); Mycoplasma pneumoniae NOT DETECTED (NOT DETECTE); Parainfluenza Virus 1 NOT DETECTED (NOT DETECTE); Parainfluenza Virus 2 NOT DETECTED (NOT DETECTE); Parainfluenza Virus 3 NOT DETECTED (NOT DETECTE); Parainfluenza Virus 4 NOT DETECTED (NOT DETECTE); Respiratory Syncytial Virus NOT DETECTED (NOT DETECTE); SARS-CoV-2 NOT DETECTED (NOT DETECTE)
[2023-08-20] MEDS: MORPHINE SULFATE 2 MG/ML SYRINGE IV (16:28)
[2023-08-20] MEDS: METHYLPREDNISOLONE SOD SUCC PF 125 MG/2 ML VIAL 60 MG IVP (16:28)
[2023-08-20] MEDS: APIXABAN 5 MG TABLET PO (16:33)
[2023-08-20] MEDS: ALBUTEROL SULFATE 2.5 MG/3 ML VIAL NEB CNTNEBULIZ (16:52)
[2023-08-20] MEDS: SUCRALFATE 1 GM TABLET PO ×2 (18:09→21:37)
--- NOTE | 2023-08-20 18:52 | ECG_ITS ---
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1940 Requested By: MATEUS PERRY Order Number: [id number] Reading MD: MATEUS PERRY Measurements Intervals [place] Rate: 134 P: VA: QRS: -4 QRSD: 146 T: 175 QT: 318 QTc: 475 Interpretive Statements ATRIAL FIBRILLATION WITH RAPID VENTRICULAR RESPONSE WITH ABERRANT CONDUCTION OR VENTRICULAR PREMATURE COMPLEXES LEFT BUNDLE BRANCH BLOCK [120+ ms QRS DURATION, 80+ ms Q/S IN V1/V2, 85+ ms R IN I/aVL/V5/V6] WARNING: DATA QUALITY MAY AFFECT INTERPRETATION Compared to ECG 08/20/2023 08:03:25 Aberrant conduction of supraventricular beat(s) now present Left bundle-branch block now present Sinus rhythm no longer present Electronically Signed On 08-21-2023 8:16:02 EST by MATEUS PERRY
[2023-08-20] MEDS: METOPROLOL TARTRATE 5 MG/5 ML VIAL IVP ×2 (18:54→21:13)
[2023-08-20 20:49] LABS: Glucometer 268 mg/dL (74-106)
[2023-08-20] MEDS: FUROSEMIDE 40 MG TABLET PO (20:51)
[2023-08-20] MEDS: INSULIN ASPART 300 UNIT/3 ML PEN SUBQ (21:37)
--- NOTE | 2023-08-20 21:55 | PC.NURSE ---
Patient is diaphoretic and drowsy. Physician notified of heart rate staying in the 140's after PRN metoprolol. Patient denies dizziness, palpitations, or chest pain. Patient will awaken with voice but then quickly fall back asleep.
[2023-08-20] MEDS: DILTIAZEM HCL 25 MG/5 ML VIAL 10 MG IV (22:15)
[2023-08-21] VITALS (24 sets, daily range): BP systolic 113–151; BP diastolic 53–73; PULSE 62–93; RESP 16–24; TEMP 36.6–36.7; O2SAT 91–96
[2023-08-21] MEDS: METHYLPREDNISOLONE SOD SUCC PF 125 MG/2 ML VIAL 60 MG IVP ×3 (00:05→16:43)
[2023-08-21] MEDS: LACTATED RINGER'S SOLUTION 1,000 ML 75 ML IV (04:38)
[2023-08-21 04:59] LABS: Basophils Percent Auto 0.1 % (0.2-2.0); Hematocrit 32.6 % (36.0-48.0); Hemoglobin 10.6 g/dL (12.0-16.0); Immature Granulocytes Abs Auto 0.06 10^3/uL (0.00-0.03); Immature Granulocytes Pct Auto 0.5 % (0.0-0.5); Lymphocytes Absolute Auto 0.8 10^3/uL (1.2-3.8); Mean Corpuscular HGB Conc 32.5 g/dL (29.9-35.2); Mean Corpuscular Hemoglobin 30.6 pg (26.7-34.0); Mean Corpuscular Volume 94.2 fL (81.0-99.0); Mean Platelet Volume 9.7 fL (9.5-13.5); Monocytes Absolute Auto 0.5 10^3/uL (0.3-0.8); Monocytes Percent Auto 4.5 % (1.7-12.0); Neutrophils Absolute Auto 10.4 10^3/uL (1.4-6.5); Neutrophils Percent Auto 87.9 % (43.0-75.0); Platelet Count 218 10^3/uL (150-450); Red Blood Count 3.46 10^6/uL (4.20-5.40); Red Cell Distribution Width 14.5 % (11.0-15.0); White Blood Count 11.8 10^3/uL (4.0-11.0)
[2023-08-21 05:35] LABS: Free T4 1.09 ng/dL (0.76-1.46)
[2023-08-21 05:42] LABS: Alanine Aminotransferase 21 U/L (14-59); Albumin Globulin Ratio 0.5; Albumin Level 2.5 g/dL (3.4-5.0); Alkaline Phosphatase 70 U/L (46-116); Anion Gap 12.1; Aspartate Amino Transferase 16 U/L (15-37); BUN Creatinine Ratio 19.7; Bilirubin Total 0.4 mg/dL (0.2-1.0); Calcium 8.7 mg/dL (8.5-10.1); Carbon Dioxide 28.7 mmol/L (21.0-32.0); Chloride 99 mmol/L (98-107); Estimated GFR (African America 54 (>=60); Estimated GFR (Non-African Ame 45 (>=60); Globulin 4.6 g/dL; Glucose 281 mg/dL (74-106); Potassium 3.8 mmol/L (3.5-5.1); Sodium 136 mmol/L (136-145); Thyroid Stimulating Hormone 0.415 uIU/mL (0.358-3.740); Total Protein 7.1 g/dL (6.4-8.2)
[2023-08-21] MEDS: SUCRALFATE 1 GM TABLET PO ×4 (06:14→21:16)
[2023-08-21] MEDS: LEVOTHYROXINE SODIUM 112 MCG TABLET PO (06:14)
[2023-08-21] MEDS: LIOTHYRONINE SODIUM 5 MCG TABLET 10 MCG PO (06:15)
[2023-08-21 07:30] LABS: Erythrocyte Sedimentation Rate >130 mm/hr (<=30)
[2023-08-21 07:41] LABS: Glucometer 303 mg/dL (74-106)
--- NOTE | 2023-08-21 07:44 | CT_ITS ---
The [address] [address] Patient Name: OSCAR MCLEOD MRN: [id number] date: 1940 Sex: F Assigned Patient Location: MS Current Patient Location: MS Accession/Order Number: [id number] Exam Date: 08/21/2023 09:15 Report Date: 08/21/2023 09:51 At the request of: MATEUS PERRY Procedure: CT angio chest EXAM: CT angio chest HISTORY: acute hypoxia COMPARISON: CT from 04/07/2021 TECHNIQUE: CT angio chest FINDINGS: OVERALL DIAGNOSTIC QUALITY: Full diagnostic quality LOWER NECK: No abnormality. CHEST: PULMONARY ARTERIES: Negative for pulmonary embolus LUNGS / AIRWAYS / PLEURA: Diffuse peribronchial thickening and mild septal thickening. Trace pleural effusions bilaterally with compressive atelectasis. HEART / OTHER VESSELS: Moderate atherosclerotic disease of the thoracic aorta and aortic arch branch vessels. Mild coronary artery disease. MEDIASTINUM / ESOPHAGUS: Normal. LYMPH NODES: A few mildly prominent mediastinal and right hilar nodes, none pathologically enlarged. CHEST WALL: Surgical clips in the right breast and axilla. UPPER ABDOMEN: Normal. MUSCULOSKELETAL: No acute abnormality. Multiple contiguous levels of bridging syndesmophytes, consistent with DISH. CT/CT angio chest IMPRESSION: 1. No pulmonary embolus or other acute angiographic abnormality of the chest. 2. Diffuse peribronchial thickening and mild septal thickening. These findings can be seen with bronchiolitis/atypical pneumonia and/or pulmonary edema. Electronically authenticated by: MARU REYES Date: 08/21/2023 09:51
--- NOTE | 2023-08-21 07:54 | P.PN_ITS ---
Progress Note: Subjective Subjective Interval history: Patient states pain is slightly improved. Before she has severe pain just with moving her leg in the bed. Now she can draw her leg up with only moderate pain. Did attempt walking and can take 1 step before pain became severe and had to stop. And that was with use of a walker. Patient was hypoxic here, does not wear supplemental oxygen at home, denies cough Exam Constitutional Vital Signs, click to edit/add: Last Vital Signs Temp 98.0 F 08/21/23 06:00 Pulse 71 08/21/23 07:52 Resp 20 08/21/23 06:00 BP 130/56 08/21/23 06:00 Pulse Ox 91 L 08/21/23 06:00 O2 Del Method Nasal Cannula 08/21/23 06:00 O2 Flow Rate 2 08/21/23 06:00 Documenting provider has reviewed patient's vital signs: yes Common normals: apparent distress (Moderate painful distress with any movement in bed) Exam limitations: no altered mental status General appearance: cooperative HENMT Common normals: normocephalic and head/scalp atraumatic Respiratory Common normals: normal respiratory effort, no retractions and clear to auscultation bilaterally Cardio Common normals: regular rate; irregular rhythm Rhythm: abnormal rhythm GI Common normals: Normal to inspection, nondistended, normoactive bowel sounds present (OBEyes:) Extremity Common normals: normal to inspection and full ROM Progress Note: Objective Labs Labs: Short CBC 08/20/23 08/21/23 Range/Units 08:05 04:27 WBC 14.1 H 11.8 H (4.0-11.0) 10^3/uL Hgb 11.2 L 10.6 L (12.0-16.0) g/dL Hct 35.3 L 32.6 L (36.0-48.0) % Plt Count 240 218 (150-450) 10^3/uL BMP 08/20/23 08/21/23 08:05 04:27 Sodium 140 136 Potassium 3.4 L 3.8 Chloride 100 99 Carbon Dioxide 30.1 28.7 BUN 24.0 H 23.0 H Creatinine 1.16 H 1.17 H Glucose 164 H 281 H Calcium 9.1 8.7 Cardiac Enzymes 08/20/23 Range/Units 08:05 Total Creatine Kinase 43 (26-192) U/L Liver Function 08/21/23 Range/Units 04:27 Total Bilirubin 0.4 (0.2-1.0) mg/dL AST 16 (15-37) U/L ALT 21 (14-59) U/L Alkaline Phosphatase 70 (46-116) U/L Albumin 2.5 L (3.4-5.0) g/dL Urine 08/20/23 Range/Units 09:10 Urine Color Yellow (YELLOW) Urine Clarity Clear (CLEAR) Urine pH 5.5 (5.0-9.0) Ur Specific [place] 1.020 (1.005-1.025) Urine Protein Trace (NEG/TRACE) mg/dL Urine Glucose (UA) Negative (NEGATIVE) mg/dL Progress Note: A&P Assessment and Plan (1) Rheumatoid arthritis flare: (2) Acute right hip pain: (3) Weakness: (4) Type 2 diabetes mellitus: Qualifiers: Diabetes mellitus complication status: without complication 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: without correction use Qualified Code(s): E11.9 - Type 2 diabetes mellitus without complications (5) Iron deficiency anemia: Qualifiers: Iron deficiency anemia type: unspecified iron deficiency Qualified Code(s): D50.9 - Iron deficiency anemia, unspecified (6) Hypokalemia: (7) Hypothyroidism (acquired): (8) Gouty arthritis: (9) COPD (chronic obstructive pulmonary disease): Qualifiers: COPD type: unspecified COPD Qualified Code(s): J44.9 - Chronic obstructive pulmonary disease, unspecified (10) Atrial fibrillation: Qualifiers: Atrial fibrillation type: longstanding persistent Qualified Code(s): I48.11 - Longstanding persistent atrial fibrillation (11) CAD, multiple vessel: Plan Rheumatoid arthritis flare: elevated ESR and CRP, with slight elevation of uric acid level. Only mildly improved overnight with steroids. Patient does not have a history of rheumatoid arthritis, will obtain rheumatoid factor, TYLER, sed rate and CRP. Patient with severity of pain unable to ambulate at all. Acute hypoxic respiratory failure with hypoxia this morning with O2 sat of 90% on 2 L-check CTA of chest, already anticoagulated, no respiratory symptoms, but does not wear supplemental oxygen at home. Continue with supplemental aerosols, but also to start routine aerosols. Weakness: -Secondary to pain-continue with current medications for pain control. Patient is slowly improving. Type 2 diabetes mellitus: -Currently poorly controlled, will increase sliding scale but restart home medications. Poor control for secondary to steroid use with as needed for the above Iron deficiency anemia: Down slightly today. But this is probably her baseline. Consider occult blood if continues to decrease added oral supplementation Hypokalemia: Continue with home supplementation. Monitor daily Hypothyroidism:-Continue with home medications, labs were normal Gouty arthritis: Uric acid levels essentially normal-continue with home medication COPD (chronic obstructive pulmonary disease): Possible acute exacerbation- although lung exam was clear, respiratory panel was negative, no significant cough, continue with the addition of routine aerosols in addition to as needed, again checking CTA Atrial fibrillation with elevated BNP: With longstanding anticoagulation-heart rate is up at times but overall stable., Repeat BNP CAD, multiple vessel: Will hold off on statin today. Possible causes of myalgias. Check CPK level. Uncontrolled hypertension with elevated BNP on admission-continue with home medications. Repeat BMP Chronic kidney disease stage II-monitor daily, creatinine improved today Morbid obesity-diet management Patient still unable to ambulate at all alone safely, also uncertain source of her acute hypoxic respiratory failure. Again patient not currently supplemented with O2 at home. Checking CTA. Change patient to inpatient status due to intensity of service. Anticipated stay of 2-3 more days
[2023-08-21] MEDS: INSULIN ASPART 300 UNIT/3 ML PEN SUBQ ×4 (08:14→21:19)
[2023-08-21] MEDS: GLIMEPIRIDE 2 MG TABLET 4 MG PO ×2 (08:18→16:40)
[2023-08-21] MEDS: FERROUS SULFATE 325 MG TABLET PO ×2 (08:25→20:07)
[2023-08-21] MEDS: AMLODIPINE BESYLATE 5 MG TABLET PO (08:30)
[2023-08-21] MEDS: APIXABAN 5 MG TABLET PO ×2 (08:30→16:40)
[2023-08-21] MEDS: FUROSEMIDE 40 MG TABLET PO (08:31)
[2023-08-21] MEDS: ASPIRIN 81 MG TABLET.DR PO (08:31)
[2023-08-21] MEDS: ISOSORBIDE MONONITRATE 60 MG TAB.ER.24H PO (08:31)
[2023-08-21] MEDS: FEBUXOSTAT 40 MG TABLET PO (08:31)
[2023-08-21] MEDS: POTASSIUM CHLORIDE 10 MEQ ER TABLET 20 MEQ PO ×2 (08:32→20:06)
[2023-08-21 08:51] LABS: C Reactive Protein 34.56 mg/dL (<=0.50)
[2023-08-21 08:56] LABS: Troponin I High Sensitivity 43.3 pg/mL (4.0-51.3)
[2023-08-21 09:00] LABS: Creatine Kinase 484 U/L (26-192); Creatine Kinase MB 4.35 ng/mL (<=3.60); Myoglobin 925 ng/mL (9-82)
[2023-08-21] MEDS: METOPROLOL SUCCINATE 100 MG TAB.ER.24H 200 MG PO (09:03)
[2023-08-21 10:29] LABS: Erythrocyte Sedimentation Rate >130 mm/hr (<=30)
--- NOTE | 2023-08-21 11:01 | CA_ITS ---
Patient Name: OSCAR MCLEOD MR#: [id number] : 1940 Exam Date: 08/21/2023 Ordering Doctor: DR Gil Blake . ECHOCARDIOGRAM REPORT PROCEDURE: CA ECHO DOPPLER COMPLETE INDICATIONS: Elevated BNP, atrial fibrillation, diabetes, hypertension, heart stents, COPD COMPARISON: None. DESCRIPTION: COMPLETE ECHOCARDIOGRAM Real-time transthoracic echocardiography with 2D, M-mode, spectral and color flow Doppler performed. QUALITY: Technical quality was good. 60 , 183#, BSA 1.80 m2 LEFT VENTRICLE: Normal chamber size. Normal left ventricular wall thickness. LV EF: Global ventricular systolic function is normal; visually estimated ejection fraction is 55 to 60%. Unable to assess regional wall motion abnormalities. DIASTOLIC: Grade 2, moderate diastolic dysfunction. ATRIAL SEPTUM: Not well-seen. LEFT ATRIUM: Mild dilatation. RIGHT ATRIUM: Normal chamber size. RIGHT VENTRICLE: Normal chamber size. Normal right ventricular systolic function. TRICUSPID VALVE: Normal mobility and thickness. No stenosis with trivial regurgitation. Doppler studies reveal mildly (35-45) elevated right sided pressures. RVSP 42 mmHg MITRAL VALVE: Mildly thickened with normal mobility. No evidence of mitral valve stenosis. Mild mitral annular calcification. Mild mitral regurgitation. AORTIC VALVE: Normal trileaflet appearance. Mildly calcified aortic valve. Doppler velocity suggests no significant aortic valve stenosis. No aortic regurgitation. AORTIC ROOT: Normal diameter and appearance. PULMONIC VALVE: Not well visualized. No stenosis. No regurgitation. PERICARDIUM: No evidence of pericardial effusion. IVC:` IVC is normal in size, does not fully collapse. CONCLUSION: 1. Global left ventricular systolic function is normal; visually estimated ejection fraction is 55 to 60% 2. Normal right ventricular size and systolic function 3. The left atrium is mildly dilated 4. Grade 2, moderate diastolic dysfunction 5. Mildly elevated right ventricular systolic pressure 6. Mild mitral regurgitation Adult Echocardiography Procedure Report Left Ventricle LVEDD (3.7 - 5.6 cm): 4.87 cm LVESD (2.2 - 4.0 cm): 4.28 cm LVIVS thickness (0.6 - 1.2 cm): 1.10 cm LVPW thickness (0.5 - 1.0 cm): 0.86 cm e': 0.06 m/s E - e': 12.26 LVOT Max Gradient: 2.12 mm[Hg], 2.02 mm[Hg], 1.94 mm[Hg] LVOT Area (cm2): 0.71 m/s Peak Velocity (LVOT): 0.73 m/s, 0.71 m/s, 0.70 m/s Mean Velocity (LVOT): 0.53 m/s LVOT Diameter 2.00 cm Left Atrium LA Volume Index (2D A2C): 40.68 ml/m2 Left Atrium Systolic Dimension: 4.07 cm Mitral Valve MV E to A Ratio: 0.83 Mitral Valve A-Wave Peak Velocity: 0.91 m/s Mitral Valve E-Wave Peak Velocity: 0.75 m/s Right Ventricle Aorta AO Root Diam: 3.07 cm Ascending Ao Diam: 2.68 cm Aortic Valve AoV Area (Peak Ricky): 1.28 cm2, 1.32 cm2, 1.35 cm2, 1.17 cm2 AoV Area (VTI): 1.42 cm2, 1.41 cm2, 1.54 cm2, 1.34 cm2 Peak Velocity(Antegrade Flow): 1.72 m/s, 1.65 m/s, 1.87 m/s, 1.73 m/s Peak Gradient(Antegrade Flow): 11.86 mm[Hg], 10.89 mm[Hg], 13.96 mm[Hg], 11.95 mm[Hg] Mean Velocity(Antegrade Flow): 1.21 m/s, 1.18 m/s, 1.28 m/s, 1.26 m/s Mean Gradient(Antegrade Flow): 6.61 mm[Hg], 6.30 mm[Hg], 7.51 mm[Hg], 7.13 mm[Hg] Velocity Time Integral: 41.75 cm, 41.64 cm, 46.44 cm, 44.47 cm Tricuspid Valve Peak Velocity (Regurgitant Flow): 2.93 m/s Pulmonic Valve Peak Velocity: 0.77 m/s Peak Gradient: 2.77 mm[Hg], 2.06 mm[Hg] Right Atrium Right Atrium Systolic Pressure: 36.76 ml, 36.76 ml Dictated by: Valentin Pisano M.D. on 08/22/2023 at 15:29 Approved by: Valentin Pisano M.D. on 08/22/2023 at 15:34
[2023-08-21 11:08] LABS: Glucometer 228 mg/dL (74-106)
--- NOTE | 2023-08-21 11:22 | RESP.RT ---
titrated down to 1L
[2023-08-21 13:13] LABS: Troponin I High Sensitivity 41.4 pg/mL (4.0-51.3)
[2023-08-21 13:25] LABS: Creatine Kinase 424 U/L (26-192)
[2023-08-21 13:26] LABS: Creatine Kinase MB 4.54 ng/mL (<=3.60)
--- NOTE | 2023-08-21 13:32 | CM.NOTE ---
Discussed with pt recommendations from PT for skilled therapy. Pt is in agreement and would like to go to the [facility]. Pt does ask if she progresses in therapy if she could just go home with HH. Explained to pt it is her decision to make but with her weakness she is high risk for falls. Pt verbalizes understanding and would like to see if the [facility] have availability. Clinical faxed to [facility].
--- NOTE | 2023-08-21 13:34 | CM.NOTE ---
Important Message From Medicare discussed with pt, pt verbalizes understanding and signs paper. Original given to pt and copy placed on pt's chart.
--- NOTE | 2023-08-21 13:50 | CT_ITS ---
[facility] [place] [id number] Patient Name: OSCAR MCLEOD MRN: [id number] date: 1940 Sex: F Assigned Patient Location: [place] Current Patient Location: [place] Accession/Order Number: [id number] Exam Date: 08/21/2023 14:21 Report Date: 08/21/2023 16:28 At the request of: MATEUS PERRY Procedure: CT head/brain wo con EXAM: CT head/brain wo con HISTORY: Facial droop. TECHNIQUE: Axial CT scans through the head were obtained without IV contrast administration. Dose reduction techniques were achieved by using: automated exposure control and/or adjustment of mA and/or kV according to patient size and/or use of iterative reconstruction technique. COMPARISON: None. FINDINGS: Mild periventricular low attenuation in the cerebral hemispheres without associated mass effect. The brainstem and the cerebellum appear normal. The ventricular system and cortical sulci are prominent, secondary to cerebral volume loss. No area of abnormal mass effect, edema, or intracranial hemorrhage is shown. The visualized orbits show no abnormal mass. The visualized paranasal sinuses show no air-fluid level. Mastoid air cells are clear. CT/CT head/brain wo con IMPRESSION: 1. Mild old microvascular ischemic change and age-related cerebral atrophy. 2. No acute intracranial process. Electronically authenticated by: MAYNOR PERALTA Date: 08/21/2023 16:28
[2023-08-21 14:52] LABS: Troponin I High Sensitivity 39.9 pg/mL (4.0-51.3)
[2023-08-21 14:57] LABS: Creatine Kinase 394 U/L (26-192)
[2023-08-21 14:58] LABS: Creatine Kinase MB 4.69 ng/mL (<=3.60)
[2023-08-21] MEDS: HYDRALAZINE HCL 50 MG TABLET 100 MG PO ×2 (15:19→21:16)
[2023-08-21 15:54] LABS: SARS-CoV-2 NAA INCONCLUSIVE (NOT DETECTE)
[2023-08-21] MEDS: IPRATROPIUM/ALBUTEROL SULFATE 3 ML AMPUL.NEB IH ×2 (16:29→22:25)
[2023-08-21] MEDS: ACETAMINOPHEN 500 MG TABLET 1000 MG PO (16:40)
[2023-08-21] MEDS: ENSURE HP 237 ML LIQUID PO (20:07)
[2023-08-22] VITALS (23 sets, daily range): BP systolic 141–153; BP diastolic 63–75; PULSE 61–86; RESP 16–22; TEMP 36.4–36.6; O2SAT 90–97
[2023-08-22] MEDS: METHYLPREDNISOLONE SOD SUCC PF 125 MG/2 ML VIAL 60 MG IVP ×3 (00:31→16:28)
[2023-08-22] MEDS: IPRATROPIUM/ALBUTEROL SULFATE 3 ML AMPUL.NEB IH ×4 (04:13→22:32)
[2023-08-22 05:25] LABS: Basophils Percent Auto 0.1 % (0.2-2.0); Hematocrit 31.8 % (36.0-48.0); Hemoglobin 10.1 g/dL (12.0-16.0); Immature Granulocytes Abs Auto 0.11 10^3/uL (0.00-0.03); Immature Granulocytes Pct Auto 0.7 % (0.0-0.5); Lymphocytes Percent Auto 5.9 % (20.5-60.0); Mean Corpuscular HGB Conc 31.8 g/dL (29.9-35.2); Mean Corpuscular Hemoglobin 30.1 pg (26.7-34.0); Mean Corpuscular Volume 94.6 fL (81.0-99.0); Mean Platelet Volume 9.9 fL (9.5-13.5); Monocytes Absolute Auto 0.8 10^3/uL (0.3-0.8); Monocytes Percent Auto 4.6 % (1.7-12.0); Neutrophils Absolute Auto 14.8 10^3/uL (1.4-6.5); Neutrophils Percent Auto 88.7 % (43.0-75.0); Platelet Count 281 10^3/uL (150-450); Red Blood Count 3.36 10^6/uL (4.20-5.40); Red Cell Distribution Width 14.5 % (11.0-15.0); White Blood Count 16.7 10^3/uL (4.0-11.0)
[2023-08-22 05:36] LABS: Erythrocyte Sedimentation Rate >130 mm/hr (<=30)
[2023-08-22] MEDS: LIOTHYRONINE SODIUM 5 MCG TABLET 10 MCG PO (05:37)
[2023-08-22] MEDS: HYDRALAZINE HCL 50 MG TABLET 100 MG PO ×4 (05:37→22:01)
[2023-08-22] MEDS: LEVOTHYROXINE SODIUM 112 MCG TABLET PO (05:38)
[2023-08-22] MEDS: SUCRALFATE 1 GM TABLET PO ×4 (05:40→22:01)
[2023-08-22 05:42] LABS: Alanine Aminotransferase 23 U/L (14-59); Albumin Globulin Ratio 0.6; Albumin Level 2.6 g/dL (3.4-5.0); Alkaline Phosphatase 67 U/L (46-116); Anion Gap 12.6; Aspartate Amino Transferase 21 U/L (15-37); BUN Creatinine Ratio 29.4; Bilirubin Total 0.3 mg/dL (0.2-1.0); Calcium 9.2 mg/dL (8.5-10.1); Carbon Dioxide 28.2 mmol/L (21.0-32.0); Chloride 100 mmol/L (98-107); Estimated GFR (African America 37 (>=60); Estimated GFR (Non-African Ame 30 (>=60); Globulin 4.6 g/dL; Glucose 238 mg/dL (74-106); Potassium 3.8 mmol/L (3.5-5.1); Sodium 137 mmol/L (136-145); Total Protein 7.2 g/dL (6.4-8.2)
[2023-08-22 05:54] LABS: C Reactive Protein 17.84 mg/dL (<=0.50)
[2023-08-22 07:01] LABS: Creatine Kinase 131 U/L (26-192); Creatine Kinase MB 1.71 ng/mL (<=3.60); Myoglobin 246 ng/mL (9-82); Troponin I High Sensitivity 29.9 pg/mL (4.0-51.3)
--- NOTE | 2023-08-22 07:21 | US_ITS ---
The [address] [address] Patient Name: OSCAR MCLEOD MRN: [id number] date: 1940 Sex: F Assigned Patient Location: [place] Current Patient Location: [place] Accession/Order Number: [id number] Exam Date: 08/22/2023 07:25 Report Date: 08/22/2023 08:22 At the request of: MATEUS PERRY Procedure: US venous doppler LE RT EXAM: US venous doppler LE RT HISTORY: unilateral edema COMPARISON: Venous ultrasound study of both legs dated 11/02/2022 TECHNIQUE: Utilizing color-flow duplex scanning and Doppler flow analysis, deep venous system of the right leg was evaluated. FINDINGS: There is normal compressibility seen throughout. There is gross patency identified. Augmentation is seen. There is no evidence of focal area of increased echogenicity within the deep venous system to suggest thrombosis. Visualized portions of the greater saphenous vein and lesser saphenous vein of the superficial venous system appear unremarkable. US/US venous doppler LE RT IMPRESSION: Grossly unremarkable imaging study of the deep venous system of the right leg as described, no definite evidence of deep venous thrombosis can be identified. Electronically authenticated by: DAYLIN BARRERA Date: 08/22/2023 08:22
[2023-08-22 07:28] LABS: Glucometer 252 mg/dL (74-106)
--- NOTE | 2023-08-22 07:29 | P.PN_ITS ---
Progress Note: Subjective Subjective Interval history: Patient states pain is overall improved, she can move her legs now with a level of 4-5 pain as opposed to unable to move them on admission. Pain still sinus pressure on the right hip. Breathing she states feels better today as well. Did not have a large diuresis yesterday. Exam Constitutional Vital Signs, click to edit/add: Last Vital Signs Temp 97.6 F 08/22/23 05:03 Pulse 78 08/22/23 06:00 Resp 18 08/22/23 05:03 BP 153/75 H 08/22/23 05:03 Pulse Ox 90 L 08/22/23 05:03 O2 Del Method Nasal Cannula 08/22/23 05:03 O2 Flow Rate 1 08/22/23 05:03 Chest Common normals: inspection of chest normal Respiratory Auscultation: rales (Bases) Cardio Common normals: regular rate Rhythm: abnormal rhythm GI Common normals: Normal to inspection, nondistended, normoactive bowel sounds present Extremity Common normals: abnormal to inspection (Edema right lower extremity, ) Progress Note: Objective Labs Labs: Short CBC 08/22/23 Range/Units 04:24 WBC 16.7 H (4.0-11.0) 10^3/uL Hgb 10.1 L (12.0-16.0) g/dL Hct 31.8 L (36.0-48.0) % Plt Count 281 (150-450) 10^3/uL BMP 08/22/23 04:24 Sodium 137 Potassium 3.8 Chloride 100 Carbon Dioxide 28.2 BUN 48.0 H Creatinine 1.63 H Glucose 238 H Calcium 9.2 Cardiac Enzymes 08/21/23 08/21/23 08/21/23 Range/Units 07:58 11:11 14:11 Total Creatine Kinase 484 H* 424 H* 394 H* (26-192) U/L CK-MB (CK-2) 4.35 H* 4.54 H* 4.69 H* (<=3.60) ng/mL 08/22/23 Range/Units 04:24 Total Creatine Kinase 131 (26-192) U/L CK-MB (CK-2) 1.71 (<=3.60) ng/mL Liver Function 08/22/23 Range/Units 04:24 Total Bilirubin 0.3 (0.2-1.0) mg/dL AST 21 (15-37) U/L ALT 23 (14-59) U/L Alkaline Phosphatase 67 (46-116) U/L Albumin 2.6 L (3.4-5.0) g/dL Progress Note: A&P Assessment and Plan (1) Rheumatoid arthritis flare: (2) Acute right hip pain: (3) Weakness: (4) Type 2 diabetes mellitus: Qualifiers: Diabetes mellitus terminal worker insulin use: without intermediate use Diabetes mellitus complication status: without complication Qualified Code(s): E11.9 - Type 2 diabetes mellitus without complications (5) Iron deficiency anemia: Qualifiers: Iron deficiency anemia type: unspecified iron deficiency Qualified Code(s): D50.9 - Iron deficiency anemia, unspecified (6) Hypokalemia: (7) Hypothyroidism (acquired): (8) Gouty arthritis: (9) COPD (chronic obstructive pulmonary disease): Qualifiers: COPD type: unspecified COPD Qualified Code(s): J44.9 - Chronic obstructive pulmonary disease, unspecified (10) Atrial fibrillation: Qualifiers: Atrial fibrillation type: longstanding persistent Qualified Code(s): I48.11 - Longstanding persistent atrial fibrillation (11) CAD, multiple vessel: Plan Rheumatoid arthritis flare: CRP is better today. Pain is better today. Will cut back on steroids slowly. Discussed with metal framer. Acute hypoxic respiratory failure with hypoxia : Able to be weaned off of supplemental oxygen but patient has not ambulated yet. Tried off of oxygen yesterday and saturations went less than 80. Weakness: Secondary to pain, continue with care Type 2 diabetes mellitus: May need adjustment in sliding scale but decreasing steroids may help Iron deficiency anemia as well as anemia of chronic kidney disease: Down slightly S from yesterday Hypokalemia: Resolved Hypothyroidism: Continue with home medications, labs were normal Gouty arthritis: Uric acid levels essentially normal-continue with home medication COPD (chronic obstructive pulmonary disease): No real change in her cough, no wheezing Atrial fibrillation with elevated BNP: Rate controlled, BNP is slightly elevated today compared to yesterday. This may be related more to her elevation in her creatinine CAD, multiple vessel: Will hold off on statin today. Possible causes of myalgias. Check CPK level. Acute rhabdomyolysis: elevated CK and myoglobin, improved today. CPK is normal, myoglobin is improved -possibly related to statin. Uncontrolled hypertension with elevated BNP on admission-continue his home medications, but did increase Imdur today. Should assist with heart failure as well as blood pressure control. Already on high doses of metoprolol and hydralazine, echo pending Chronic kidney disease stage II-monitor daily, creatinine improved today Morbid obesity-diet management Leukocytosis: this is likely secondary to steroid use, no signs of infection. Unilateral leg edema: more pronounced today on the right side. Will check venous Doppler. Patient is already anticoagulated but concern for possible failure of medication Patient still unable to ambulate at all alone safely, also uncertain source of her acute hypoxic respiratory failure. Again patient not currently supplemented with O2 at home. Checking CTA. Change patient to inpatient status due to intensity of service. Anticipated stay of 2-3 more days
--- NOTE | 2023-08-22 08:27 | CT_ITS ---
[address] [address] Patient Name: OSCAR MCLEOD MRN: [id number] date: 1940 Sex: F Assigned Patient Location: MS Current Patient Location: MS Accession/Order Number: [id number] Exam Date: 08/22/2023 08:20 Report Date: 08/22/2023 08:59 At the request of: MATEUS PERRY Procedure: CT pelvis wo con EXAMINATION: CT pelvis wo con HISTORY: R pelvic hip pain COMPARISON: 08/20/2023 plain x-ray TECHNIQUE: Multi-planar CT images were created without IV contrast. Dose reduction techniques were achieved by using automated exposure control and/or adjustment of mA and/or kV according to patient size and/or use of iterative reconstruction technique. FINDINGS: BONES: No acute fracture or dislocation. Moderate degenerative changes of the spine. Mild degenerative changes of the hips with marginal osteophyte formation. No evidence of avascular necrosis. SOFT TISSUES: Negative. No visible soft tissue swelling. EFFUSION: None visible. OTHER: Moderate vascular calcifications. Left inguinal surgical clips from prior procedure. Pelvic floor relaxation with low position of the pelvic contents. Prior hysterectomy. CT/CT pelvis wo con IMPRESSION: Degenerative changes with no acute fracture Electronically authenticated by: JUDSON RESENDEZ Date: 08/22/2023 08:59
[2023-08-22] MEDS: POTASSIUM CHLORIDE 10 MEQ ER TABLET 20 MEQ PO ×2 (08:36→20:39)
[2023-08-22] MEDS: GLIMEPIRIDE 2 MG TABLET 4 MG PO ×2 (08:36→16:29)
[2023-08-22] MEDS: ISOSORBIDE MONONITRATE 60 MG TAB.ER.24H 120 MG PO (08:36)
[2023-08-22] MEDS: SPIRONOLACTONE 25 MG TABLET PO (08:37)
[2023-08-22] MEDS: ASPIRIN 81 MG TABLET.DR PO (08:37)
[2023-08-22] MEDS: AMLODIPINE BESYLATE 5 MG TABLET PO (08:37)
[2023-08-22] MEDS: METOPROLOL SUCCINATE 100 MG TAB.ER.24H 200 MG PO (08:37)
[2023-08-22] MEDS: FERROUS SULFATE 325 MG TABLET PO ×2 (08:37→20:39)
[2023-08-22] MEDS: APIXABAN 5 MG TABLET PO ×2 (08:37→16:28)
[2023-08-22] MEDS: FEBUXOSTAT 40 MG TABLET PO (08:39)
[2023-08-22] MEDS: INSULIN ASPART 300 UNIT/3 ML PEN SUBQ ×4 (08:41→22:03)
[2023-08-22] MEDS: ENSURE HP 237 ML LIQUID PO ×2 (08:43→20:40)
[2023-08-22] MEDS: FUROSEMIDE 40 MG TABLET PO ×2 (08:44→20:42)
[2023-08-22] MEDS: NYSTATIN 15 GM POWDER 1 APPLIC TOPICAL ×2 (09:43→20:41)
[2023-08-22] MEDS: FLUCONAZOLE 100 MG TABLET PO (09:46)
--- NOTE | 2023-08-22 10:37 | PT.DAILY ---
Physical Therapy Daily Note PT Daily Note/Assess Start: 08/22/23 10:34 Freq: Status: Active Protocol: Document 08/22/23 10:34 ROCIO (Rec: 08/22/23 10:37 ROCIO [id number]) Physical Therapy Daily Note/Assessment Time In/Time Out Time In 09:30 Time Out 09:45 Pain In Pain N/A Pain Out Pain N/A Subjective Subjective Pt sitting in BS chair upon arrival. Agrees to PT. Denies pain at rest. Therapeutic Exercise Time Therapeutic Exercise Minutes (minutes) 3 Therapeutic Exercise Units 0 Therapeutic Exercise Treatment Therapeutic Exercise Treatment Seated bilat LE strengthening ex complete 10x ea in BS chair . Standing marches, HR, and mini squats 5x ea standing at RW. Therapeutic Activity Time Therapeutic Activity Minutes (minutes) 8 Therapeutic Activity Units 1 Therapeutic Activity Treatment Chair Transfer Ability Contact Guard Assist Therapeutic Activity Comments Sit>stand from BS chair CGA with increased time to complete. Pt amb 70' with RW, CGA for safety ( R Knee tends to buckle) Pt demonstrates short step length and needs constant cues to keep RW close . Pt returned to BS chair to complete seated/standing ex. Remains seated upon completion with call light in reach and needs met. Total Physical Therapy Time Total Therapy Minutes 11 Total Physical Therapy Units 1 Summary Daily Note Summary Improved gait endurance with RW today - CGA. Knee did not buckle during session today though pt expressed concerns of this happening at any time.
--- NOTE | 2023-08-22 11:07 | RESP.RT ---
Placed pt on room air
[2023-08-22 11:08] LABS: Vitamin D, 25-Hydroxy 40.1 ng/mL (30.0-100.0)
[2023-08-22 11:31] LABS: Glucometer 302 mg/dL (74-106)
[2023-08-22 12:09] LABS: ANA Direct Negative (Negative)
--- NOTE | 2023-08-22 12:43 | CM.NOTE ---
[facility] will accept pt, updates faxed.
[2023-08-22 14:08] LABS: Rheumatoid Factor (RF) 27.6 IU/mL (<14.0)
[2023-08-22] MEDS: ACETAMINOPHEN 500 MG TABLET 1000 MG PO (20:39)
[2023-08-22 21:23] LABS: Glucometer 273 mg/dL (74-106)
[2023-08-23] VITALS (21 sets, daily range): BP systolic 115–158; BP diastolic 67–83; PULSE 53–88; RESP 16–20; TEMP 36.5–36.8; O2SAT 92–98
[2023-08-23] MEDS: METHYLPREDNISOLONE SOD SUCC PF 125 MG/2 ML VIAL 60 MG IVP (00:14)
[2023-08-23] MEDS: IPRATROPIUM/ALBUTEROL SULFATE 3 ML AMPUL.NEB IH ×4 (04:25→22:38)
[2023-08-23 04:48] LABS: Erythrocyte Sedimentation Rate 118 mm/hr (<=30)
[2023-08-23 04:50] LABS: Basophils Percent Auto 0.1 % (0.2-2.0); Hematocrit 30.6 % (36.0-48.0); Hemoglobin 9.8 g/dL (12.0-16.0); Immature Granulocytes Pct Auto 0.7 % (0.0-0.5); Lymphocytes Absolute Auto 0.9 10^3/uL (1.2-3.8); Lymphocytes Percent Auto 6.4 % (20.5-60.0); Mean Corpuscular Volume 93.6 fL (81.0-99.0); Mean Platelet Volume 9.6 fL (9.5-13.5); Monocytes Absolute Auto 0.5 10^3/uL (0.3-0.8); Monocytes Percent Auto 3.5 % (1.7-12.0); Neutrophils Absolute Auto 12.6 10^3/uL (1.4-6.5); Neutrophils Percent Auto 89.3 % (43.0-75.0); Platelet Count 307 10^3/uL (150-450); Red Blood Count 3.27 10^6/uL (4.20-5.40); Red Cell Distribution Width 14.4 % (11.0-15.0); White Blood Count 14.1 10^3/uL (4.0-11.0)
[2023-08-23 05:06] LABS: Alanine Aminotransferase 32 U/L (14-59); Albumin Globulin Ratio 0.6; Albumin Level 2.6 g/dL (3.4-5.0); Alkaline Phosphatase 63 U/L (46-116); Anion Gap 14.2; Aspartate Amino Transferase 20 U/L (15-37); BUN Creatinine Ratio 39.3; Bilirubin Total 0.2 mg/dL (0.2-1.0); Calcium 9.2 mg/dL (8.5-10.1); Carbon Dioxide 25.2 mmol/L (21.0-32.0); Chloride 100 mmol/L (98-107); Estimated GFR (African America 33 (>=60); Estimated GFR (Non-African Ame 27 (>=60); Globulin 4.3 g/dL; Glucose 264 mg/dL (74-106); Potassium 4.4 mmol/L (3.5-5.1); Sodium 135 mmol/L (136-145); Total Protein 6.9 g/dL (6.4-8.2)
[2023-08-23 05:17] LABS: Creatine Kinase 59 U/L (26-192); Creatine Kinase MB 1.56 ng/mL (<=3.60); Myoglobin 118 ng/mL (9-82); Troponin I High Sensitivity 18.6 pg/mL (4.0-51.3)
[2023-08-23] MEDS: LIOTHYRONINE SODIUM 5 MCG TABLET 10 MCG PO (05:36)
[2023-08-23] MEDS: LEVOTHYROXINE SODIUM 112 MCG TABLET PO (05:37)
[2023-08-23] MEDS: HYDRALAZINE HCL 50 MG TABLET 100 MG PO ×3 (05:37→22:21)
[2023-08-23] MEDS: SUCRALFATE 1 GM TABLET PO ×4 (05:38→22:22)
[2023-08-23 05:41] LABS: C Reactive Protein 7.56 mg/dL (<=0.50)
--- NOTE | 2023-08-23 07:28 | P.PN_ITS ---
Progress Note: Subjective Subjective Interval history: Patient feels better today. Pain improving. Stiffness in joints is improving. Still unable to ambulate with walker without assistance Exam Constitutional Vital Signs, click to edit/add: Last Vital Signs Temp 97.7 F 08/23/23 04:12 Pulse 81 08/23/23 06:00 Resp 18 08/23/23 05:32 BP 158/81 H 08/23/23 04:12 Pulse Ox 95 08/23/23 05:32 O2 Del Method Room Air 08/23/23 05:32 O2 Flow Rate 1 08/22/23 11:03 Chest Common normals: inspection of chest normal Respiratory Auscultation: rales (Bases) Cardio Common normals: regular rate Rhythm: abnormal rhythm GI Common normals: Normal to inspection, nondistended, normoactive bowel sounds present Extremity Common normals: abnormal to inspection (Edema right lower extremity, ) Progress Note: Objective Labs Labs: Short CBC 08/23/23 Range/Units 04:21 WBC 14.1 H (4.0-11.0) 10^3/uL Hgb 9.8 L (12.0-16.0) g/dL Hct 30.6 L (36.0-48.0) % Plt Count 307 (150-450) 10^3/uL BMP 08/23/23 04:21 Sodium 135 L Potassium 4.4 Chloride 100 Carbon Dioxide 25.2 BUN 70.0 H Creatinine 1.78 H Glucose 264 H Calcium 9.2 Cardiac Enzymes 08/23/23 Range/Units 04:21 Total Creatine Kinase 59 (26-192) U/L CK-MB (CK-2) 1.56 (<=3.60) ng/mL Liver Function 08/23/23 Range/Units 04:21 Total Bilirubin 0.2 (0.2-1.0) mg/dL AST 20 (15-37) U/L ALT 32 (14-59) U/L Alkaline Phosphatase 63 (46-116) U/L Albumin 2.6 L (3.4-5.0) g/dL Progress Note: A&P Assessment and Plan (1) Rheumatoid arthritis flare: (2) Acute right hip pain: (3) Weakness: (4) Type 2 diabetes mellitus: Qualifiers: Diabetes mellitus detention insulin use: without termite control servicer use Diabetes mellitus complication status: without complication Qualified Code(s): E11.9 - Type 2 diabetes mellitus without complications (5) Iron deficiency anemia: Qualifiers: Iron deficiency anemia type: unspecified iron deficiency Qualified Code(s): D50.9 - Iron deficiency anemia, unspecified (6) Hypokalemia: (7) Hypothyroidism (acquired): (8) Gouty arthritis: (9) COPD (chronic obstructive pulmonary disease): Qualifiers: COPD type: unspecified COPD Qualified Code(s): J44.9 - Chronic obstructive pulmonary disease, unspecified (10) Atrial fibrillation: Qualifiers: Atrial fibrillation type: longstanding persistent Qualified Code(s): I48.11 - Longstanding persistent atrial fibrillation (11) CAD, multiple vessel:
--- NOTE | 2023-08-23 07:31 | P.PN_ITS ---
Progress Note: Subjective Subjective Interval history: Patient feels better today. Pain improving. Stiffness in joints is improving. Still unable to ambulate with walker without assistance Exam Constitutional Vital Signs, click to edit/add: Last Vital Signs Temp 97.7 F 08/23/23 04:12 Pulse 81 08/23/23 06:00 Resp 18 08/23/23 05:32 BP 158/81 H 08/23/23 04:12 Pulse Ox 95 08/23/23 05:32 O2 Del Method Room Air 08/23/23 05:32 O2 Flow Rate 1 08/22/23 11:03 Chest Common normals: inspection of chest normal Respiratory Auscultation: rales (Bases) Cardio Common normals: regular rate Rhythm: abnormal rhythm GI Common normals: Normal to inspection, nondistended, normoactive bowel sounds present Extremity Common normals: abnormal to inspection (Edema right lower extremity, ) Progress Note: Objective Labs Labs: Short CBC 08/23/23 Range/Units 04:21 WBC 14.1 H (4.0-11.0) 10^3/uL Hgb 9.8 L (12.0-16.0) g/dL Hct 30.6 L (36.0-48.0) % Plt Count 307 (150-450) 10^3/uL BMP 08/23/23 04:21 Sodium 135 L Potassium 4.4 Chloride 100 Carbon Dioxide 25.2 BUN 70.0 H Creatinine 1.78 H Glucose 264 H Calcium 9.2 Cardiac Enzymes 08/23/23 Range/Units 04:21 Total Creatine Kinase 59 (26-192) U/L CK-MB (CK-2) 1.56 (<=3.60) ng/mL Liver Function 08/23/23 Range/Units 04:21 Total Bilirubin 0.2 (0.2-1.0) mg/dL AST 20 (15-37) U/L ALT 32 (14-59) U/L Alkaline Phosphatase 63 (46-116) U/L Albumin 2.6 L (3.4-5.0) g/dL Progress Note: A&P Assessment and Plan (1) Rheumatoid arthritis flare: (2) Acute right hip pain: (3) Weakness: (4) Type 2 diabetes mellitus: Qualifiers: Diabetes mellitus fpc insulin use: without intermodal dispatcher use Diabetes mellitus complication status: without complication Qualified Code(s): E11.9 - Type 2 diabetes mellitus without complications (5) Iron deficiency anemia: Qualifiers: Iron deficiency anemia type: unspecified iron deficiency Qualified Code(s): D50.9 - Iron deficiency anemia, unspecified (6) Hypokalemia: (7) Hypothyroidism (acquired): (8) Gouty arthritis: (9) COPD (chronic obstructive pulmonary disease): Qualifiers: COPD type: unspecified COPD Qualified Code(s): J44.9 - Chronic obstructive pulmonary disease, unspecified (10) Atrial fibrillation: Qualifiers: Atrial fibrillation type: longstanding persistent Qualified Code(s): I48.11 - Longstanding persistent atrial fibrillation (11) CAD, multiple vessel: Plan Rheumatoid arthritis flare: Rheumatoid test did come back and confirm as positive, this is new to her. Continue to wean steroids Acute hypoxic respiratory failure with hypoxia : Room air starting yesterday. Able to maintain. Weakness: Secondary to pain, continue with care, improving but still unable to ambulate without assistance Type 2 diabetes mellitus: Adjust sliding scale today. Iron deficiency anemia as well as anemia of chronic kidney disease: Down slightly S from yesterday Hypokalemia: Resolved Hypothyroidism: Continue with home medications, labs were normal Gouty arthritis: Uric acid levels essentially normal-continue with home medication COPD (chronic obstructive pulmonary disease): No real change in her cough, no wheezing Atrial fibrillation with elevated BNP: Echocardiogram normal, rate controlled, BNP is slightly elevated today compared to yesterday. This may be related more to her elevation in her creatinine CAD, multiple vessel: Will hold off on statin today. Possible causes of myalgias. Check CPK level. Acute rhabdomyolysis: elevated CK and myoglobin, improved today. Possibly related to the statin versus the rheumatoid arthritis flareup Uncontrolled hypertension with elevated BNP on admission- BNP is better today. Chronic kidney disease stage II-monitor daily, creatinine deteriorated as expected from the aggressive diuresis 2 days ago. Continue to monitor. Morbid obesity-diet management Leukocytosis: Improving Unilateral leg edema: No blood clot noted Right hip pain-check CT scan of hip yesterday. No fracture noted Patient still unable to ambulate at all alone safely, also uncertain source of her acute hypoxic respiratory failure. Again patient not currently supplemented with O2 at home. Checking CTA. Change patient to inpatient status due to intensity of service. Anticipated stay of 1-2 more days
[2023-08-23] MEDS: METHYLPREDNISOLONE SOD SUCC PF 40 MG/ML VIAL IVP ×3 (08:27→23:05)
[2023-08-23] MEDS: ENSURE HP 237 ML LIQUID PO ×2 (09:46→20:52)
[2023-08-23] MEDS: FERROUS SULFATE 325 MG TABLET PO ×2 (09:46→20:45)
[2023-08-23] MEDS: SPIRONOLACTONE 25 MG TABLET PO (09:46)
[2023-08-23] MEDS: FLUCONAZOLE 100 MG TABLET PO (09:46)
[2023-08-23] MEDS: METOPROLOL SUCCINATE 100 MG TAB.ER.24H 200 MG PO (09:46)
[2023-08-23] MEDS: GLIMEPIRIDE 2 MG TABLET 4 MG PO ×2 (09:46→17:19)
[2023-08-23] MEDS: AMLODIPINE BESYLATE 5 MG TABLET PO (09:47)
[2023-08-23] MEDS: APIXABAN 5 MG TABLET PO ×2 (09:47→17:20)
[2023-08-23] MEDS: ASPIRIN 81 MG TABLET.DR PO (09:48)
[2023-08-23] MEDS: ISOSORBIDE MONONITRATE 60 MG TAB.ER.24H 120 MG PO (09:49)
[2023-08-23] MEDS: FUROSEMIDE 40 MG TABLET PO ×2 (09:49→20:45)
[2023-08-23] MEDS: FEBUXOSTAT 40 MG TABLET PO (09:49)
[2023-08-23] MEDS: NYSTATIN 15 GM POWDER 1 APPLIC TOPICAL ×2 (09:50→20:42)
[2023-08-23] MEDS: POTASSIUM CHLORIDE 10 MEQ ER TABLET 20 MEQ PO ×2 (09:51→20:44)
--- NOTE | 2023-08-23 10:38 | PT.DAILY ---
Physical Therapy Daily Note PT Daily Note/Assess Start: 08/22/23 10:34 Freq: Status: Active Protocol: Document 08/23/23 10:30 ROCIO (Rec: 08/23/23 10:38 ROCIO [id number]) Physical Therapy Daily Note/Assessment Time In/Time Out Time In 10:01 Time Out 10:25 Pain In Pain N/A Pain Out Pain N/A Subjective Subjective Pt sitting in BS chair upon arrival. Off supplemental O2 today. Therapeutic Exercise Time Therapeutic Exercise Minutes (minutes) 5 Therapeutic Exercise Units 0 Therapeutic Exercise Treatment Therapeutic Exercise Treatment Seated bilat LE strengthening ex complete 10x ea prior to gait. Therapeutic Activity Time Therapeutic Activity Minutes (minutes) 18 Therapeutic Activity Units 2 Therapeutic Activity Treatment Chair Transfer Ability Standby Assistance Therapeutic Activity Comments Pt performs sit>stand SBA with increased time to get momentum going. Pt amb 100' with RW, SBA. Pt demonstrates short step length with step to gait pattern. Reports she is fearful of R knee buckling so she takes smaller strides. Pt returned to BS chair when she realized she needed to use restroom. Sit>stand SBA. Amb 30' to restroom with RW. Pt needs assistance to get brief down. Toilet transfer SBA with grab bar. Pt performs pericare IND. Sit>stand SBA. Needs assistance pulling up brief. Pt Static stands at sink to brush teeth, comb hair , and wash hands SBA. Pt then amb 30' back to bed side chair where feet are elevated and call light is within reach. Total Physical Therapy Time Total Therapy Minutes 23 Total Physical Therapy Units 2 Summary Daily Note Summary Improved gait endurance today. Steady with static standing but does occ use UE support on sink.
--- NOTE | 2023-08-23 11:23 | CM.NOTE ---
Discussed discharge planning with pt, pt still agrees with skilled therapy at [facility] when medically stable to discharge home.
[2023-08-23] MEDS: INSULIN ASPART 300 UNIT/3 ML PEN SUBQ ×2 (12:29→17:19)
--- NOTE | 2023-08-23 13:56 | OT.DAILY ---
Occupational Therapy Daily Note OT Inpatient Daily Visit Note Start: 08/21/23 10:46 Freq: Status: Active Protocol: Document 08/23/23 13:23 [id number] (Rec: 08/23/23 13:31 [id number]) OT Visit Details Time In/Time Out Time In 13:00 Time Out 13:22 Pain In Pain Level 0 Patient Status Patient reported status AAOx4 OT Treatment Plan Subjective Subjective I am doing okay, I want to talk to the assistant manager retail Objective Objective Completed STS tx with a walker . 1-3 verbal cues for hand placement and safety techniques. CGA for LOB. Able to ambulate to bathroom, appropriate use of grab bars when seated on commode. Pt requested to sit in chair for lunch, 1-3 verbal cues for transfer techniques. Able to maintain NICK when seated. Assessment Assessment Pt tolerated treatment well. She was agreeable and cooperative with all tasks. Denies pain before/after session. Continue OT POC. OT Billing Total Treatment Time Total treatment minutes 22 Total timed treatment Minutes 22 Bulb Packer Timed Codes Therapeutic activity minutes (minutes) 22 Therapeutic activity units 1
--- NOTE | 2023-08-23 14:39 | CM.NOTE ---
Updates sent to [facility].
--- NOTE | 2023-08-23 14:46 | CM.NOTE ---
2nd Important Notice From Medicare discussed with pt, pt denies any questions or concerns.
[2023-08-23] MEDS: METFORMIN HCL 500 MG TABLET PO (17:20)
[2023-08-24] VITALS (9 sets, daily range): BP systolic 150; BP diastolic 84; PULSE 59–140; RESP 18; TEMP 36.7; O2SAT 92–95
[2023-08-24] MEDS: IPRATROPIUM/ALBUTEROL SULFATE 3 ML AMPUL.NEB IH ×2 (04:56→10:38)
[2023-08-24 05:08] LABS: Creatine Kinase 36 U/L (26-192); Myoglobin 114 ng/mL (9-82); Troponin I High Sensitivity 15.2 pg/mL (4.0-51.3)
[2023-08-24 05:30] LABS: C Reactive Protein 3.49 mg/dL (<=0.50)
[2023-08-24 05:33] LABS: Erythrocyte Sedimentation Rate 111 mm/hr (<=30)
[2023-08-24] MEDS: LEVOTHYROXINE SODIUM 112 MCG TABLET PO (05:42)
[2023-08-24] MEDS: HYDRALAZINE HCL 50 MG TABLET 100 MG PO (05:42)
[2023-08-24] MEDS: SUCRALFATE 1 GM TABLET PO (05:42)
[2023-08-24] MEDS: LIOTHYRONINE SODIUM 5 MCG TABLET 10 MCG PO (05:43)
--- NOTE | 2023-08-24 06:44 | P.DS_ITS ---
DS: Providers Provider Date of admission: 08/21/23 10:37 Primary care physician: Gil Blake MD Consults: 08/20/23 Consult to Sanitarian Routine Has provider been notified: No Reason for consult:: Shelter 08/20/23 12:34 Occupational Therapy Eval and Treat Routine Reason for consultation: weakness Has provider been notified: No Physical Therapy Eval and Treat Routine Reason for consultation: weakness Has provider been notified: No DS: Diagnosis Discharge Diagnosis (1) Rheumatoid arthritis flare: (2) Acute right hip pain: (3) Weakness: (4) Type 2 diabetes mellitus: Qualifiers: Diabetes mellitus usp insulin use: without usp use Diabetes mellitus complication status: without complication Qualified Code(s): E11.9 - Type 2 diabetes mellitus without complications (5) Iron deficiency anemia: Qualifiers: Iron deficiency anemia type: unspecified iron deficiency Qualified Code(s): D50.9 - Iron deficiency anemia, unspecified (6) Hypokalemia: (7) Hypothyroidism (acquired): (8) Gouty arthritis: (9) COPD (chronic obstructive pulmonary disease): Qualifiers: COPD type: unspecified COPD Qualified Code(s): J44.9 - Chronic o bstructive pulmonary disease, unspecified (10) Atrial fibrillation: Qualifiers: Atrial fibrillation type: longstanding persistent Qualified Code(s): I48.11 - Longstanding persistent atrial fibrillation (11) CAD, multiple vessel: Plan Rheumatoid arthritis flare: Acute hypoxic respiratory failure with hypoxia : Weakness: Type 2 diabetes mellitus: Iron deficiency anemia as well as anemia of chronic kidney disease: Hypokalemia: Hypothyroidism: Gouty arthritis: COPD (chronic obstructive pulmonary disease): Atrial fibrillation with elevated BNP: CAD, multiple vessel: Acute rhabdomyolysis: Uncontrolled hypertension with elevated BNP on admission- Chronic kidney disease stage II Morbid obesity Leukocytosis: Unilateral leg edema: Right hip pain: DS: Summary Hospital Course Hospital Course: Patient has sustained a fall couple weeks prior to coming in but then had right hip pain resulting from the, that was getting better than but a day prior to coming in she still having increasing pain throughout all of her joints and myalgias. Unable to walk at home secondary to the pain. Brought by ambulance to the hospital, found to have with workup acute flareup of rheumatoid arthritis. Patient does not have a history of rheumatoid arthritis she has a history of osteoarthritis and gout. Uric acid markers were slightly elevated on admission. But the return factor was 2 times normal, sedimentation rate and CRP very elevated, patient having also positive myoglobin and elevated CPK. Those are improving at the time of discharge. Her CRP and sed rate are improving at the time of discharge. With the steroid use she has some fluid retention and some hypoxia with that she been off supplemental oxygen over the last 36 hours. Diuresed well. Continues to diurese well with the reduction in steroid dosing. At this point patient can ambulate some with a walker with assistance. She is not not able to walk without assistance. She is a half an excellent candidate for rehab as she is a very high fall risk. Highly motivated for returning to home. That is when she be discharged to rehab, medications see list, I will follow patient at rehab Time Spent with Patient Time attestation: Total time spent providing and/or coordinating discharge services: Exam Constitutional Vital Signs, click to edit/add: Last Vital Signs Temp 98.0 F 08/24/23 04:07 Pulse 73 08/24/23 06:00 Resp 18 08/24/23 04:56 BP 150/84 H 08/24/23 04:07 Pulse Ox 92 L 08/24/23 04:56 O2 Del Method Room Air 08/24/23 04:56 O2 Flow Rate 1 08/22/23 11:03 Chest Common normals: inspection of chest normal Respiratory Auscultation: no rales (Bases) Cardio Common normals: regular rate Rhythm: abnormal rhythm GI Common normals: Normal to inspection, nondistended, normoactive bowel sounds present Extremity Common normals: abnormal to inspection (Edema right lower extremity, ) DS: Data Data Completed and Pending Labs on day of discharge: Labs from last 24 hours 08/24/23 04:08 ESR 111 H Total Creatine Kinase 36 CK-MB (CK-2) 1.20 Myoglobin 114 H Troponin I High Sens 15.2 C-Reactive Protein 3.49 H NT-Pro-B Natriuret Pep 3771.0 H* Discharge Plan Discharge Disposition: Xfer SNF Condition: Good Discharge Medications: New fluconazole 100 mg Tablet 100 mg PO QD Qty: 10 0RF ferrous sulfate 325 mg (65 mg iron) Tablet 325 mg PO BID Qty: 60 11RF insulin aspart U-100 [Novolog FlexPen U-100 Insulin] 100 unit/mL (3 mL) Insulin Pen 4 - 24 unit subcut ACHS Qty: 15 11RF prednisone 10 mg tablet 60 mg PO DAILY Qty: 60 0RF Rx Instructions: 6/day for 3 days, 5/day for 3 days. 4/day for 3 days, 3/day for 3 days, 2/day for 3 days, 1/day for 3 days, 1/2 /day for 4 days Continued albuterol sulfate 2.5 mg /3 mL (0.083 %) solution for nebulization 2.5 mg continuous nebulization Q4H PRN (Reason: shortness of breath or wheezing) albuterol sulfate 90 mcg/actuation HFA aerosol inhaler 2 puff INHALATION Q4H PRN (Reason: shortness of breath or wheezing) amlodipine 5 mg tablet 5 mg PO DAILY anastrozole 1 mg tablet 1 mg PO DAILY aspirin [Adult Low Dose Aspirin] 81 mg tablet,delayed release (DR/EC) 81 mg PO DAILY Eliquis 5 mg tablet 5 mg PO BID furosemide 40 mg tablet 40 mg PO Q12H glimepiride 4 mg tablet 4 mg PO BID hydralazine 100 mg tablet 100 mg PO TID Patient Comments: IF BP OVER 130 isosorbide mononitrate 60 mg tablet extended release 24 hr 60 mg PO DAILY levothyroxine 112 mcg tablet 112 mcg PO DAILY liothyronine 5 mcg tablet 10 mcg PO DAILY metformin 500 mg tablet 500 mg PO BID metoprolol succinate 200 mg tablet extended release 24 hr 200 mg PO DAILY simvastatin 20 mg tablet 20 mg PO BEDTIME sucralfate 1 gram tablet 1 g PO QID febuxostat 40 mg tablet 40 mg PO DAILY potassium chloride [Klor-Con M20] 20 mEq tablet,ER particles/crystals 20 meq PO BID Forms: Portal Instructions
[2023-08-24] MEDS: ENSURE HP 237 ML LIQUID PO (09:18)
[2023-08-24] MEDS: INSULIN ASPART 300 UNIT/3 ML PEN SUBQ (09:18)
[2023-08-24] MEDS: SPIRONOLACTONE 25 MG TABLET PO (09:19)
[2023-08-24] MEDS: ASPIRIN 81 MG TABLET.DR PO (09:19)
[2023-08-24] MEDS: AMLODIPINE BESYLATE 5 MG TABLET PO (09:19)
[2023-08-24] MEDS: METOPROLOL SUCCINATE 100 MG TAB.ER.24H 200 MG PO (09:19)
[2023-08-24] MEDS: ISOSORBIDE MONONITRATE 60 MG TAB.ER.24H 120 MG PO (09:19)
[2023-08-24] MEDS: POTASSIUM CHLORIDE 10 MEQ ER TABLET 20 MEQ PO (09:19)
[2023-08-24] MEDS: GLIMEPIRIDE 2 MG TABLET 4 MG PO (09:19)
[2023-08-24] MEDS: FLUCONAZOLE 100 MG TABLET PO (09:20)
[2023-08-24] MEDS: METFORMIN HCL 500 MG TABLET PO (09:20)
[2023-08-24] MEDS: FERROUS SULFATE 325 MG TABLET PO (09:20)
[2023-08-24] MEDS: APIXABAN 5 MG TABLET PO (09:20)
[2023-08-24] MEDS: FUROSEMIDE 40 MG TABLET PO (09:23)
[2023-08-24] MEDS: METHYLPREDNISOLONE SOD SUCC PF 40 MG/ML VIAL IVP (09:23)
[2023-08-24] MEDS: FEBUXOSTAT 40 MG TABLET PO (09:23)
[2023-08-24] MEDS: NYSTATIN 15 GM POWDER 1 APPLIC TOPICAL (09:23)
[2023-08-24] MEDS: METOPROLOL TARTRATE 5 MG/5 ML VIAL IVP (09:41)
--- NOTE | 2023-08-24 10:16 | PC.NURSE ---
0945 ICU called about pt heart rate being 130's to 160's. IVP Lopressor given. 1005 pt HR still 120's to [address] Blake put in order for Cardizem one time IVP
--- NOTE | 2023-08-24 10:21 | PT.DAILY ---
Physical Therapy Daily Note PT Daily Note/Assess Start: 08/22/23 10:34 Freq: Status: Active Protocol: Document 08/24/23 10:17 ROCIO (Rec: 08/24/23 10:21 ROCIO [id number]) Physical Therapy Daily Note/Assessment Time In/Time Out Time In 10:00 Time Out 10:15 Pain In Pain N/A Pain Out Pain N/A Subjective Subjective Pt standing in restroom brushing her teeth upon arrival. Therapeutic Exercise Time Therapeutic Exercise Minutes (minutes) 4 Therapeutic Exercise Units 0 Therapeutic Exercise Treatment Therapeutic Exercise Treatment Seated bilat LE strengthening ex complete in BS chair 10x ea . Therapeutic Activity Time Therapeutic Activity Minutes (minutes) 8 Therapeutic Activity Units 1 Therapeutic Activity Treatment Therapeutic Activity Comments Pt static standing at sink finishing brushing teeth, applies deodorant, and lotion to arms. Pt then amb with RW 100' with RW, SBA/CGA. Pt demonstrates decreased carmen and step to pattern due to being fearful of R knee buckling. Pt returned to room to BS chair to complete seated ex. Pt remains in BS chair upon completion with call light in reach and family present. Total Physical Therapy Time Total Therapy Minutes 12 Total Physical Therapy Units 1 Summary Daily Note Summary Gait endurance is slightly improving but cont to be apprehensive with gait due to R knee instability.
[2023-08-24] MEDS: DILTIAZEM HCL 25 MG/5 ML VIAL 20 MG IV (10:38)
--- NOTE | 2023-08-24 11:20 | PC.NURSE ---
Dr segundo updated on HR after cardizem and still okay to discharge pt.
--- NOTE | 2023-08-24 15:04 | CM.NOTE ---
[facility] completed for [facility].
== END 2023-08-24 12:15 | DRG 189 ==
LOC: ER 12:18 → MS 12:54
PROVIDERS: Family Medicine; Admitting Provider Family Medicine; Emergency Provider Emergency Medicine; PCP Family Medicine; Visit Provider Family Medicine
DX: J96.01 Acute respiratory failure with hypoxia (principal); I50.41 Acute combined systolic (congestive) and diastolic (congestive) heart failure; M62.82 Rhabdomyolysis; I48.11 Longstanding persistent atrial fibrillation; M06.9 Rheumatoid arthritis, unspecified; M25.551 Pain in right hip; R53.1 Weakness; E11.9 Type 2 diabetes mellitus without complications; D50.9 Iron deficiency anemia, unspecified; E87.6 Hypokalemia; E03.9 Hypothyroidism, unspecified; M10.9 Gout, unspecified; J44.9 Chronic obstructive pulmonary disease, unspecified; R79.89 Other specified abnormal findings of blood chemistry; N18.2 Chronic kidney disease, stage 2 (mild); D72.829 Elevated white blood cell count, unspecified; T38.0X5A Adverse effect of glucocorticoids and synthetic analogues, initial encounter; R60.0 Localized edema; E66.01 Morbid (severe) obesity due to excess calories; I25.10 Atherosclerotic heart disease of native coronary artery without angina pectoris; Z95.5 Presence of coronary angioplasty implant and graft; Z66 Do not resuscitate; Z79.82 Long term (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 aspirin; Z79.890 Hormone replacement therapy; Z79.84 Long term (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 oral hypoglycemic drugs; Z79.01 Long term (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; Z91.81 History of falling; Z68.35 Body mass index [BMI] 35.0-35.9, adult; Z87.891 Personal history of nicotine dependence; D63.1 Anemia in chronic kidney disease; I12.9 Hypertensive chronic kidney disease with stage 1 through stage 4 chronic kidney disease, or unspecified chronic kidney disease; Z90.710 Acquired absence of both cervix and uterus
CPT/HCPCS: 0202U; 36415; 70450; 71045; 71275; 72192; 73502; 80048; 80053; 81001; 82306; 82550; 82553; 82607; 82728; 82948; 83540; 83550; 83874; 83880; 84439; 84443; 84484; 84550; 85025; 85652; 86038; 86140; 86430; 86431; 87635; 87804; 87811; 90662; 93005; 93306; 93971; 94640; 94761; 96374; 96375; 96376; 97161; 97165; 97530; 99285; G0008; G0378; J2920; J2930; Q9967

== ENCOUNTER 2023-10-14 19:12 | Inpatient (IN) | payer MEDICARE, OTHER, SELFPAY ==
[2023-10-14] VITALS (31 sets, daily range): BP systolic 134–148; BP diastolic 79–83; PULSE 73–103; RESP 20–36; TEMP 36.4–37.3; O2SAT 84–95; BMI 34.2; BMI 37.0
--- NOTE | 2023-10-14 19:22 | XR_ITS ---
[facility] [id number] Patient Name: OSCAR MCLEOD MRN: [id number] date: 1940 Sex: F Assigned Patient Location: ER Current Patient Location: ER Accession/Order Number: [id number] Exam Date: 10/14/2023 19:55 Report Date: 10/14/2023 20:37 At the request of: BEBE HADDAD Procedure: XR chest 1V EXAMINATION: XR chest 1V, , 10/14/2023 7:55 PM EST INDICATION: shortness of breath HISTORY: Ordering Provider Reason for Exam: shortness of breath Technologist Note: Additional: COMPARISON: Chest x-ray 08/20/2023. TECHNIQUE: Chest x-ray: One view. FINDINGS: No pneumothorax, pleural effusion or focal airspace consolidation. Heart is normal in size. Bony thorax is unremarkable. XR/XR chest 1V IMPRESSION: No acute cardiopulmonary process. Electronically authenticated by: YAS PULIDO Date: 10/14/2023 20:37
--- NOTE | 2023-10-14 19:22 | ECG_ITS ---
[facility] Test Date: 2023-10-14 Pat Name: OSCAR MCLEOD Department: Room: - Gender: Female Manager Graphic: : 1940 Requested By: MATEUS PERRY Order Number: [id number] Reading MD: MATEUS PERRY Measurements Intervals [place] Rate: 97 P: -62113 MI: -46910 QRS: 37 QRSD: 128 T: 193 QT: 372 QTc: 426 Interpretive Statements 36456 Atrial fibrillation with aberrant conduction, or ventricular premature complexes 2320 Nonspecific intraventricular conduction delay [address] depression, probably digitalis effect 29686 Twave abnormality, possible lateral ischemia or digitalis effect 47646 Twave abnormality, possible inferior ischemia or digitalis effect 9150 abnormal ECG Compared to ECG 08/20/2023 18:45:12 Intraventricular conduction delay now present ST (T wave) deviation now present Possible ischemia now present Left bundle-branch block no longer present Electronically Signed On 10-15-2023 5:58:21 EST by MATEUS PERRY
--- NOTE | 2023-10-14 19:25 | ED_ITS ---
HPI - General Adult General Chief complaint: Shortness of Breath/Dyspnea Stated complaint: sob Time Seen by Provider: 10/14/23 19:12 History of Present Illness HPI narrative: Patient with Afib, CHF and COPD was sent by EMS from the [facility] to our ED for evaluation and treatment after she developed shortness of breath today. She admits to cough, chest congestion and increased leg swelling/edema bilaterally. She had some nausea without vomiting or diarrhea. EMS gave her a duoneb treatment in route and started her on oxygen due to 88% room air sat. Her PCP is Dr Blake. She sees Dr Keyes - harriett. Related Data Home Medications Medication Instructions Recorded Confirmed albuterol sulfate 2.5 mg/3 mL 2.5 mg continuous nebulization Q4H 03/04/23 08/20/23 (0.083 %) solution for nebulization PRN shortness of breath or wheezing albuterol sulfate 90 mcg/actuation 2 puff inhalation Q4H PRN 03/04/23 08/20/23 aerosol inhaler shortness of breath or wheezing amlodipine 5 mg tablet 5 mg PO DAILY 03/04/23 08/20/23 anastrozole 1 mg tablet 1 mg PO DAILY 03/04/23 08/20/23 apixaban 5 mg tablet (Eliquis) 5 mg PO BID 03/04/23 08/20/23 aspirin 81 mg tablet,delayed 81 mg PO DAILY 03/04/23 08/20/23 release (Adult Low Dose Aspirin) furosemide 40 mg tablet 40 mg PO Q12H 03/04/23 08/20/23 glimepiride 4 mg tablet 4 mg PO BID 03/04/23 08/20/23 hydralazine 100 mg tablet 100 mg PO TID 03/04/23 08/20/23 isosorbide mononitrate 60 mg 60 mg PO DAILY 03/04/23 08/20/23 tablet,extended release 24 hr levothyroxine 112 mcg tablet 112 mcg PO DAILY 03/04/23 08/20/23 liothyronine 5 mcg tablet 10 mcg PO DAILY 03/04/23 08/20/23 metformin 500 mg tablet 500 mg PO BID 03/04/23 08/20/23 metoprolol succinate 200 mg 200 mg PO DAILY 03/04/23 08/20/23 tablet,extended release 24 hr simvastatin 20 mg tablet 20 mg PO BEDTIME 03/04/23 08/20/23 sucralfate 1 gram tablet 1 g PO QID 03/04/23 08/20/23 febuxostat 40 mg tablet 40 mg PO DAILY 08/20/23 08/20/23 potassium chloride 20 mEq 20 meq PO BID 08/20/23 08/20/23 tablet,extended release(part/cryst) (Klor-Con M) Previous Rx's Medication Instructions Recorded ferrous sulfate 325 mg (65 mg 325 mg PO BID #60 tabs 08/24/23 iron) tablet fluconazole 100 mg tablet 100 mg PO QD #10 tabs 08/24/23 insulin aspart U-100 100 unit/mL 4 - 24 unit (0.04 - 0.24 mL) 08/24/23 (3 mL) subcutaneous pen (Novolog subcut ACHS #15 mL FlexPen U-100 Insulin aspart) prednisone 10 mg tablet 60 mg (6 x 10 mg) PO DAILY #60 tabs 08/24/23 Allergies Allergy/AdvReac Type Severity Reaction Status Date / Time oxycodone AdvReac Severe nausea and Verified 08/20/23 08:04 vomiting tramadol AdvReac Severe Vomiting Verified 08/20/23 08:04 cefdinir AdvReac Unknown Vomiting Verified 08/20/23 08:04 ciprofloxacin AdvReac Unknown Vomiting Verified 08/20/23 08:04 [facility] Medical History (Updated 10/14/23 @ 21:40 by Royer Ghosh) Weakness ?R53.1 - Weakness (ICD-10) Acute right hip pain ?M25.551 - Pain in right hip (ICD-10) Rheumatoid arthritis flare ?M06.9 - Rheumatoid arthritis, unspecified (ICD-10) Difficulty in walking ?R26.2 - Difficulty in walking, not elsewhere classified (ICD-10) Arthralgia ?M25.50 - Pain in unspecified joint (ICD-10) CAD, multiple vessel ?I25.10 - Atherosclerotic heart disease of [place] coronary artery without angina pectoris (ICD-10) Atrial fibrillation ?I48.91 - Unspecified atrial fibrillation (ICD-10) COPD (chronic obstructive pulmonary disease) ?J44.9 - Chronic obstructive pulmonary disease, unspecified (ICD-10) Gouty arthritis ?M10.9 - Gout, unspecified (ICD-10) Hypothyroidism (acquired) ?E03.9 - Hypothyroidism, unspecified (ICD-10) Hypokalemia ?E87.6 - Hypokalemia (ICD-10) Iron deficiency anemia ?D50.9 - Iron deficiency anemia, unspecified (ICD-10) Type 2 diabetes mellitus ?E11.9 - Type 2 diabetes mellitus without complications (ICD-10) Social History Smoking status: Former smoker Exam Narrative Exam Narrative: Nurses notes and vital signs reviewed and patient is not hypoxic. afebrile General: Well-appearing and in no apparent distress. Skin: Warm, dry, no pallor noted. Head: Normocephalic, atraumatic. Neck: Supple, non-tender. No cervical lymphadenopathy. Eye: Pupils are equal, round and EOMI. No scleral icterus. Ears, Nose, Mouth, and Throat: Oral mucosa is moist Cardiovascular: Regular Rate and Irregular Rhythm without murmur, gallop or rub. Respiratory: No accessory muscle use or respiratory distress. Lungs with decreased breath sounds globally and bibasilar crackles. Musculoskeletal: normal ROM, no calf or popliteal tenderness, 2+ pitting lower extremity edema/swelling GI: Abdomen is soft, non-distended. Normal bowel sounds. No tenderness to palpation. No rebound, guarding, or rigidity noted. Neurological: A&O x4. No cranial nerve dysfunction observed. No truncal ataxia. Moves all extremities. Sensation intact. Psychiatric: Cooperative and interactive. Normal mood and affect. Constitutional Vital Signs, click to edit/add: Last Vital Signs Temp 99.2 F 10/14/23 19:22 Pulse 90 10/14/23 19:22 Resp 26 H 10/14/23 19:22 BP 145/80 H 10/14/23 19:49 Pulse Ox 91 L 10/14/23 19:39 O2 Del Method Nasal Cannula 10/14/23 19:39 O2 Flow Rate 2 10/14/23 19:39 Course Vital Signs Vital signs: Vital Signs Temperature 99.2 F 10/14/23 19:22 Pulse Rate 90 10/14/23 19:22 Respiratory Rate 26 H 10/14/23 19:22 Blood Pressure 145/81 H 10/14/23 19:22 Oxygen Delivery Method Room Air 10/14/23 19:22 Temperature 99.2 F 10/14/23 19:22 Pulse Rate 90 10/14/23 19:22 Respiratory Rate 26 H 10/14/23 19:22 Blood Pressure 145/80 H 10/14/23 19:49 Pulse Oximetry 91 L 10/14/23 19:39 Oxygen Delivery Method Nasal Cannula 10/14/23 19:39 Oxygen Delivery Flow Rate 2 10/14/23 19:39 Medical Decision Making MDM Narrative Medical decision making narrative: Patient was placed on residential monitor and EKG obtained. Blood drawn and sent for evaluation, including lactate, blood cultures and procalcitonin per sepsis protocol. portable CXR obtained. She was given IV Solumedrol and IV Lasix to help with her breathing. IV Zofran for her nausea. White blood cell elevated at 13 K. CMP notable only for elevated BUN and creatinine at 30, 1.46. Lactate and procalcitonin were negative. BNP elevated with peripheral edema. Respiratory panel was negative. Chest x-ray unremarkable Patient continues to be hypoxic despite treatment. She is not on O2 at home. She will be admitted for COPD exacerbation, continue to get steroids and breathing treatments until her oxygenation improves. Patient will be admitted to Dr. Blake's service. Case discussed with the nurse practitioner telehospitalist, Bertram Cannon. Patient agreeable to admission. Lab Data Lab results reviewed: Yes I reviewed the patient's lab results Labs: Lab Results 10/14/23 10/14/23 10/14/23 Range/Units 19:20 19:30 20:23 WBC 13.0 H (4.0-11.0) 10^3/uL RBC 3.48 L (4.20-5.40) 10^6/uL Hgb 10.7 L (12.0-16.0) g/dL Hct 33.6 L (36.0-48.0) % MCV 96.6 (81.0-99.0) fL MCH 30.7 (26.7-34.0) pg MCHC 31.8 (29.9-35.2) g/dL RDW 16.7 H (11.0-15.0) % Plt Count 279 (150-450) 10^3/uL MPV 9.6 (9.5-13.5) fL Neut % (Auto) 68.3 (43.0-75.0) % Lymph % (Auto) 18.8 L (20.5-60.0) % Rice % (Auto) 11.1 (1.7-12.0) % Eos % (Auto) 0.2 L (0.9-7.0) % Baso % (Auto) 0.3 (0.2-2.0) % Neut # (Auto) 8.9 H (1.4-6.5) 10^3/uL Lymph # (Auto) 2.5 (1.2-3.8) 10^3/uL Rice # (Auto) 1.5 H (0.3-0.8) 10^3/uL Eos # (Auto) 0.0 (0.0-0.7) 10^3/uL Baso # (Auto) 0.0 (0.0-0.1) 10^3/uL Abs Immat Gran (auto) 0.17 H (0.00-0.03) 10^3/uL Imm/Tot Granulo (auto) 1.3 H (0.0-0.5) % PT 11.5 (9.0-11.6) sec INR 1.09 APTT 37.4 H (22.3-36.2) sec Sodium 137 (136-145) mmol/L Potassium 5.0 (3.5-5.1) mmol/L Chloride 98 (98-107) mmol/L Carbon Dioxide 32.6 H (21.0-32.0) mmol/L Anion Gap 11.4 BUN 30.0 H (7.0-18.0) mg/dL Creatinine 1.46 H (0.55-1.02) mg/dL Est GFR ( Amer) 42 L (>=60) Est GFR (Non-Af Amer) 34 L (>=60) BUN/Creatinine Ratio 20.5 Glucose 134 H (74-106) mg/dL Lactate 1.9 (0.4-2.0) mmol/L Calcium 9.4 (8.5-10.1) mg/dL Total Bilirubin 0.3 (0.2-1.0) mg/dL AST 15 (15-37) U/L ALT 21 (14-59) U/L Alkaline Phosphatase 99 (46-116) U/L Troponin I High Sens 9.8 (4.0-51.3) pg/mL NT-Pro-B Natriuret Pep 5006.0 H* (<=1800.0) pg/mL Total Protein 7.3 (6.4-8.2) g/dL Albumin 2.8 L (3.4-5.0) g/dL Globulin 4.5 g/dL Albumin/Globulin Ratio 0.6 Procalcitonin <0.05 (0.00-0.50) ng/mL Adenovirus (PCR) Not detected (NOT DETECTE) C. pneumoniae DNA (PCR) Not detected (NOT DETECTE) Coronavirus Type OC43 Not detected (NOT DETECTE) Coronavirus Type HKU1 Not detected (NOT DETECTE) Coronavirus Type 229E Not detected (NOT DETECTE) Coronavirus Type NL63 Not detected (NOT DETECTE) Human Metapneumovir PCR Not detected (NOT DETECTE) M. pneumoniae (PCR) Not detected (NOT DETECTE) Parainfluenza PCR Not detected (NOT DETECTE) Parainfluenza 2 (PCR) Not detected (NOT DETECTE) Parainfluenza 3 (PCR) Not detected (NOT DETECTE) Parainfluenza 4 (PCR) Not detected (NOT DETECTE) RSV (RT-PCR) Not detected (NOT DETECTE) Entero/Rhino (PCR) Not detected (NOT DETECTE) SARS-CoV-2 (PCR) Not detected (NOT DETECTE) Bordetella pertussis (PCR) Not detected (NOT DETECTE) B parapertussis DNA PCR Not detected (NOT DETECTE) Influenza Type A (PCR) Not detected (NOT DETECTE) Influenza Type B (PCR) Not detected (NOT DETECTE) Imaging Data Chest x-ray: Attestation: I have reviewed the pertinent imaging results. Radiologist's impression: ITS Impressions Chest X-Ray 10/14/23 19:22 IMPRESSION: No acute cardiopulmonary process. Electronically authenticated by: YAS PULIDO Date: 10/14/2023 20:37 ECG Data Attestation: I personally reviewed and interpreted this ECG as follows: Interpretation: EKG interpretation: Emergency Department physician interpretation. Atrial fibrillation at 97bpm. Nonspecific intraventricular conduction delay, T wave inversion in leads I and aVL, along with lead to, V4 through V6. No ST segment elevation or depression. Discharge Plan Discharge Chief Complaint: Shortness of Breath/Dyspnea Clinical Impression: CHF (congestive heart failure), Acute infective exacerbation of chronic obstructive airway disease, Hypoxia Patient Disposition: Admitted as Observation Time of Disposition Decision: 21:19
--- OUTSIDE RECORDS SUMMARY | 2023-10-14 19:29 | XMS_ITS | CCD ---
Author Name Unknown Address [address] [place] [address] Organization [facility] Care Team Providers Care Solar[facility] Administrator Name Role Phone Mateus Perry MD Primary Care Provider Mateus Perry Primary Care Physician Mateus Perry MD Primary Care Provider [phone] Mateus Perry MD Primary Care Provider MD Mateus Perry Primary Care Provider [phone] MD Christiano Gonzales Attending Provider Christiano Gonzales Unavailable Karenmoose Millie Unavailable Mateus Perry Primary Care Unavailable Christiano Gonzales Attending UnavailChristiano Riggs Admitting Unavailabl e SONALI MCKINNEY Admitting Unavailable SONALI MCKINNEY Attending Unavailable ORLANDO Batres, DR IGNACIO Primary Care Unavailable SONALI MCKINNEY Consulting Unavailable HOY ., DR IGNACIO Admitting Unavailable HOY ., DR IGNACIO Attending Unavailable HOY ., DR IGNACIO Primary Care Unavailable HOY ., DR IGNACIO Consulting Unavailable MIGUELITO TELLEZ Consulting Unavailable HOY ., DR IGNACIO Admitting Unavailable HOY ., DR IGNACIO Attending Unavailable HOHui ., DR IGNACIO Primary Care Unavailable ORLANDO ., DR IGNACIO Consulting Unavailable NILL ., DR BARRIENTOS Admitting Unavailable NILL ., DR BARRIENTOS Attending Unavailable HOY ., DR IGNACIO Primary Care Unavailable ARIEL, DR ALFONSO Ramirez Consulting Unavailable NILL ., DR BARRIENTOS Consulting Unavailable SONALI MCKINNEY Admitting Unavailable SONALI MCKINNEY Attending Unavailable ORLANDO Batres, DR IGNACIO Primary Care Unavailable MISC, DR ROSE Admitting Unavailable MISC, DR ROSE Attending Unavailable HOY ., DR IGNACIO Primary Care Unavailable HOY ., DR IGNACIO Admitting Unavailable HOY ., DR IGNACIO Attending Unavailable HOY ., DR IGNACIO Primary Care Unavailable HOY ., DR IGNACIO Consulting Unavailable HANK, SONALI Admitting Unavailable HANK, SONALI Attending Unavailable HOY ., DR IGNACIO Primary Care Unavailable ZIEBER, DR ALFONSO Ramirez Consulting Unavailable HANK, SONALI Consulting Unavailable HANK, SONALI Admitting Unavailable HANK, SONALI Attending Unavailable HOY ., DR IGNACIO Primary Care Unavailable HANK, SONALI Consulting Unavailable HANK, SONALI Admitting Unavailable HANK, SONALI Attending Unavailable HOY ., DR IGNACIO Primary Care Unavailable HANK, SONALI Consulting Unavailable HOY ., DR IGNACIO Admitting Unavailable HOY ., DR IGNACIO Attending Unavailable HOY ., DR IGNACIO Primary Care Unavailable HOY ., DR IGNACIO Consulting Unavailable ZIEBER, DR ALFONSO Ramirez Consulting Unavailable HANK, SONALI Admitting Unavailable HANK, SONALI Attending Unavailable HANK, SONALI Consulting Unavailable HOY ., DR IGNACIO Admitting Unavailable HOY ., DR IGNACIO Attending Unavailable HOY ., DR IGNACIO Primary Care Unavailable HOY ., DR IGNACIO Consulting Unavailable [place], DR JUDSON Plunkett Consulting Unavailable MISC, DR ROSE Admitting Unavailable MISC, DR ROSE Attending Unavailable HOY ., DR IGNACIO Primary Care Unavailable MISC, DR ROSE Consulting Unavailable HOY ., DR IGNACIO Admitting Unavailable HOY ., DR IGNACIO Attending Unavailable HOY ., DR IGNACIO Primary Care Unavailable HOY ., DR IGNACIO Consulting Unavailable HANK, SONALI Admitting Unavailable HANK, SONALI Attending Unavailable HOY ., DR IGNACIO Primary Care Unavailable HOY ., DR IGNACIO Consulting Unavailable HANK, SONALI Consulting Unavailable HOY ., DR IGNACIO Consulting Unavailable HOY ., DR IGNACIO Admitting Unavailable HOY ., DR IGNACIO Attending Unavailable HOY ., DR IGNACIO Primary Care Unavailable HOY ., DR IGNACIO Admjose Unavailable HOY ., DR IGNACIO Attending Unavailable HOY ., DR IGNACIO Primary Care Unavailable HOY ., DR IGNACIO Consulting Unavailable NILL ., DR BARRIENTOS Admitting Unavailable NILL ., DR BARRIENTOS Attending Unavailable HOY ., DR IGNACIO Primary Care Unavailable [place], DR JUDSON Plunkett Consulting Unavailable NILL ., DR BARRIENTOS Consulting Unavailable KRISTIN JAQUEZ Consulting Unavailable CARLOS ALMARAZ Consulting Unavailable LEANA HERNANDEZ Consulting Unavailable HOY ., DR IGNACIO Admitting Unavailable HOY ., DR IGNACIO Attending Unavailable HOY ., DR IGNACIO Primary Care Unavailable HOY ., DR IGNACIO Consulting Unavailable HOY ., DR IGNACIO Admitting Unavailable HOY ., DR IGNACIO Attending Unavailable HOY ., DR IGNACIO Primary Care Unavailable HOY ., DR IGNACIO Consulting Unavailable HOY ., DR IGNACIO Admitting Unavailable HOY ., DR IGNACIO Attending Unavailable HOY ., DR IGNACIO Primary Care Unavailable HOY ., DR IGNACIO Consulting Unavailable HOY ., DR IGNACIO Admitting Unavailable HOY ., DR IGNACIO Attending Unavailable HOY ., DR IGNACIO Primary Care Unavailable HOY ., DR IGNACIO Consulting Unavailable [place], DR JUDSON Plunkett Consulting Unavailable HOY ., DR IGNACIO Primary Care Unavailable MIK HODGES Admitting Unavailable MIK HODGES Attending Unavailable MIK HODGES Consulting Unavailable HILL BAILON Consulting Unavailable NILL ., DR BARRIENTOS Admitting Unavailable NILL ., DR BARRIENTOS Attending Unavailable HOY ., DR IGNACIO Primary Care Unavailable HOY ., DR IGNACIO Admitting Unavailable HOY ., DR IGNACIO Attending Unavailable HOY ., DR IGNACIO Primary Care Unavailable HOY ., DR IGNACIO Admjose Unavailable HOY ., DR IGNACIO Attending Unavailable HOY ., DR IGNACIO Primary Care Unavailable HOY ., DR IGNACIO Consulting Unavailable JOSE MARIA KEYES Attending Unavailable RAPHAEL QUEEN Attending Unavailable KARAMLOU, WALLACE Attending Unavailable HOY, MATEUS M Primary Care Unavailable MARCIN SHAH Attending Unavailable NILL, ILIANA R Referring Unavailable HOY, MATEUS M Primary Care Unavailable KARAMLOU, WALLACE Attending Unavailable NILL, ILIANA R Referring Unavailable HOY, MATEUS M Primary Care Unavailable WINNIE GUZMÁN Attending Unavailable HOY, MATEUS M Primary Care Unavailable HOY, MATEUS M Primary Care Unavailable KARAMLOU, WALLACE Attending Unavailable HOY, MATEUS M Primary Care Unavailable HOY, MATEUS M Primary Care Unavailable NILL, Iliana R Attending Unavailable NILL, Iliana R Attending Unavailable NILL, Iliana R Attending Unavailable NILL, Iliana Ramirez Attending Unavailable NILL, Iliana Ramirez Attending Unavailable NILL, Iliana Ramirez Attending Unavailable Rony Perrylas Referring Unavailable NILL, Iliana R Attending Unavailable EMMA WALL Admitting Unavailkim e EMMA WALL Attending Unavailabl e ORLANDO MATEUS M Primary Care Unavailable KOLEDA, LATONIA Referring Unavailable TAWNYRONY AmesLAS M Primary Care Unavailable MATEUS PERRY M Primary Care Unavailable KOLEDA, LATONIA Referring Unavailable Allergies Allergy Classification Reported Allergen(s) Allergy Type Date of Onset Reaction(s) Facility (18 sources) Acetaminophen / oxyCODONE; 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: [OXYCODONE-ACETAM INOPHEN] Drug Allergy 3 Other (See Comments), Intolerance, GI Upset [facility] (20 sources) Ciprofloxacin; 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: [ciprofloxacin] Drug Allergy 8 Hives, Urticaria (disorder), Other: See Comments [facility] (20 sources) oxyCODONE; 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: [oxycodone] Drug Allergy 9 Rash, Itching (finding) [facility] (16 sources) cefdinir; 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: [cefdinir] Drug Allergy 3 Vomiting (disorder), Other: See Comments, Vomiting, Other (See Comments) [facility] [place] (7 sources) traMADol; 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: [TRAMADOL] Drug Allergy 3 Mental Status Change, Other (See Comments) [facility] (1 source) Cefuroxime Drug Allergy [address] [facility] [employer] [facility] Work Phone: (2 sources) Acetaminophen; 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: [acetaminophen] Drug Allergy 9 Rash [facility] (1 source) Ciprofloxacin Drug Allergy 9 [facility] (1 source) oxyCODONE Drug Allergy 9 [facility] (1 source) traMADol Drug Allergy 3 [facility] (2 sources) Acetaminophen / oxyCODONE Drug Allergy 3 [facility] (1 source) Cefuroxime Drug Allergy 2 [facility] (2 sources) Ciprofloxacin Drug Allergy [facility] Medications Current Medications Medication Drug Class(es) Dates Sig (Normalized) Sig (Original) acetaminophen 325 mg / HYDROcodone bitartrate 5 mg oral tablet (1 source) Opioid Agonist Start: 12-13-2021 End: 12-20-2021 HYDROcodone-aceta minophen (NORCO) 5-325 MG per tablet Indications: Post-operative state Take 1 tablet by mouth every 4 hours as needed for Pain for up to 7 days. Intended supply: 7 days. Take lowest dose possible to manage pain 10 tablet 0 12/13/2021 12/20/2021 Active albuterol 0.83 mg/ml inhalation solution (20 sources) beta2-Adrenergic Agonist Start: 09-02-2022 take 2.5 mg by inhalation four times daily albuterol 0.083% Inh Crys 3 mL 2.5 mg, 3 mL, NEB, QID, Refill(s) 0 Start Date: 09/02/22 Status: Ordered Start: 04-25-2019 take 1.25 mg by inha lation every four to six hours Albuterol Sulfate Active 1.25 MG INHALATION EVERY 4-6 HOURS April 25, 2019 12:00am Start: 04-25-2019 take 1 puff(s) by in halation every six hours Albuterol Sulfate (Ventolin Hfa) 90 mcg/actuation Hfa Aerosol Inhaler Active 2 PUFF INHALATION Q6H April 25, 2019 12:00am albuterol (PROVE NTIL) 2.5 mg /3 mL (0.083 %) nebulizer solution Use 2.5 mg via nebulizer as needed. 0 Active Albuterol Sulfat e (2.5 MG/3ML) 0.083% 3 ml Inhalation Three times a day Active End: 02-14-2023 ALBUTEROL SULFATE (VENTOLIN INHALATION) Inhale 2 Puffs as instructed as needed. 0 02/14/2023 Discontinued (Discontinued by Patient) take 2 puff(s) by in halation every six hours as needed for wheezing albuterol sulfate HFA (PROVENTIL;VENTOLIN;PROAIR) 108 (90 Base) MCG/ACT inhaler Inhale 2 puffs into the lungs every 6 hours as needed for Wheezing 0 Active ALBUTEROL SULFAT E (VENTOLIN INHALATION) Inhale 2 Puffs as instructed as needed. 0 Active Comment on above: Use 2.5 mg via nebul izer as needed. Inhale 2 Puffs as in structed as needed. amLODIPine 5 mg oral tablet (20 sources) Dihydropyridine Calcium Channel Mark Start: take 1 tablet by mouth once daily amLODIPine (NORVASC) 5 MG tablet Take 5 mg by mouth daily 0 04/05/2021 Active Start: 04-25-2019 take 5 mg by mouth once daily Amlodipine Active 5 MG PO Daily April 25, 2019 12:00am Comment on above: Take by mouth once d aily. anastrozole 1 mg oral tablet (9 sources) Aromatase Inhibitor Start: 11-09-2022 End: 06-14-2024 take 1 tablet by mouth once daily anastrozole (ARIMIDEX) 1 mg tablet Take 1 tablet by mouth once daily. 90 tablet 3 06/20/2023 06/14/2024 Active Anastrozole Acti ve Comment on above: Take 1 tablet by zechariah th once daily. apixaban 5 mg oral tablet (20 sources) Factor Xa Inhibitor Start: 04-25-2019 take 1 tablet by mouth twice daily Eliquis 5 mg oral tablet 5 mg = 1 tab(s), Oral, BID, Refills(s) 0 Start Date: 09/02/22 Status: Ordered take 2 tablets by mouth twice da efe apixaban (ELIQUIS) 2.5 mg tab(s) Take 5 mg by mouth twice daily. 0 Active Comment on above: Take 5 mg by mouth t wice daily. aspirin 81 mg chewable tablet (20 sources) Platelet Aggregation Inhibitor, Nonsteroidal Anti-inflammatory Drug Start: 09-02-2022 aspirin 81 mg Chew Tab 81 mg = 1 tab(s), Chewed, Daily, Refills(s) 0 Start Date: 09/02/22 Status: Ordered Start: 04-25-2019 Aspirin (Chang Low Dose Aspirin) 81 mg Tablet,Delayed Release (Dr/Ec) Active 81 MG PO Daily April 25, 2019 12:00am Comment on above: Take 81 mg by mouth once daily. bacitracin 0.5 unt/mg / polymyxin b 10 unt/mg topical ointment (2 sources) Polymyxin-class Antibacterial Start: End: bacitracin-polymyxin b (POLYSPORIN) [id number] UNIT/GM ointment Apply topically 2 times daily. 15 g 1 06/28/2022 06/28/2022 Discontinued (REORDER) cholecalciferol 0.125 mg oral tablet (2 sources) Vitamin D Start: take 1 tablet by mouth once daily Cholecalciferol (Vitamin D3) (Vitamin D3) 125 mcg (5,000 unit) Tablet Active 125 MCG PO Daily November 29, 2022 12:00am take 1 tablet by mouth once shasta y cholecalciferol (VITAMIN D-3) 5,000 unit tab Take 5,000 Units by mouth once daily. 0 Active Comment on above: Take 5,000 Units by mouth once daily. 1 ml diphenhydrAMINE hydrochloride 50 mg/ml cartridge (1 source) Histamine-1 Receptor Antagonist Start: End: diphenhydrAMINE (BENADRYL) injection 12.5 mg docosahexaenoic acid 120 mg / eicosapentaenoic acid 180 mg oral capsule (9 sources) take 1 capsule by mouth twice daily Coolidge 3 1000 MG CAPS Take 1,000 mg by mouth 2 times daily 0 Active End: 05-12-2021 take 1 capsule by mouth once daily Coolidge-3 Fatty Acids (FISH OIL OMEGA-3) 1000 MG CAPS Take 1,000 mg by mouth daily 0 05/12/2021 Discontinued docusate sodium 50 mg / sennosides, group home 8.6 mg oral tablet (2 sources) Start: 06-28-2022 End: 07-28-2022 take 8.6-50 mg by mouth once as needed senna-docusate (PERICOLACE) 8.6-50 MG per tablet Take 1 tablet by mouth 2 times daily as needed for Constipation 60 tablet 1 06/28/2022 06/28/2022 Discontinued (REORDER) 2 ml fentaNYL 0.05 mg/ml injection (6 sources) Opioid Agonist Start: 06-28-2022 fentaNYL (SUBL IMAZE) injection 50 mcg Start: 06-28-2022 fentaNYL (SUBL IMAZE) injection 25 mcg Start: 12-13-2021 fentaNYL (SUBL IMAZE) injection 50 mcg Start: 12-13-2021 fentaNYL (SUBL IMAZE) injection 25 mcg Fish Oils (10 sources) Start: 09-02-2022 take 2 capsules by m [facility] once daily Fish Oil 1000 mg oral capsule 2,000 mg = 2 cap(s), Oral, Daily, Refills(s) 0 Start Date: 09/02/22 Status: Ordered take 1 capsule by mouth once albert ly Fish Oil 1000 MG 1 capsule Orally Once a day for 30 day(s) Active fluconazole 100 mg oral tablet (1 source) Azole Antifungal Start: 12-15-2021 take 1 tablet by mouth once daily fluconazole (DIFLUCAN) 100 MG tablet TAKE 1 TABLET BY MOUTH EVERY DAY 0 12/15/2021 Active furosemide 40 mg oral tablet (20 sources) Loop Diuretic Start: 11-29-2022 take 40 mg by mouth every other day Furosemide Active 40 MG PO Q2D November 29, 2022 12:00am Start: 09-02-2022 take 1 tablet by zechariah th twice daily Lasix 20 mg Tab 20 mg = 1 tab(s), Oral, BID, Refills(s) 0 Start Date: 09/02/22 Status: Ordered take 2 tablets by mo [facility] twice daily furosemide (LASIX) 20 mg tablet Take 40 mg by mouth twice daily. 0 Active Lasix Active take 1 tablet by zechariah th every other day furosemide (LASIX) 40 MG tablet Take 40 mg by mouth every other day 0 Active furosemide (LASI X) 20 MG tablet Take by mouth every other day 0 Active Comment on above: Take 20 mg by mouth twice daily. Take 40 mg by mouth twice daily. glimepiride 4 mg oral tablet (20 sources) Sulfonylurea Start: 9 take 1 tablet by mouth twice daily glimepiride 4 mg Tab 4 mg = 1 tab(s), Oral, BID, Refills(s) 0 Start Date: 09/02/22 Status: Ordered take 1 tablet by zechariah th every twenty-four hours Glimepiride 4 MG 1 tablet with breakfast or the first main meal of the day Orally Once a day Active Comment on above: Take 4 mg by mouth t wice daily with meals. hydroCHLOROthiazide 12.5 mg oral tablet (20 sources) Thiazide Diuretic Start: take 1 tablet by mouth twice daily hydrochlorothiazide 12.5 mg Tab 12.5 mg = 1 tab(s), Oral, BID, Refills(s) 0 Start Date: 09/02/22 Status: Ordered Start: 03-20-2021 End: 05-12-2021 hydroCHLOROthiazide (HYDRODI URIL) 12.5 MG tablet Take by mouth every other day On days taking-takes med twice per day 0 03/20/2021 05/12/2021 Discontinued (Therapy completed) Start: 04-25-2019 End: 06-20-2023 take 12.5 mg by mouth once daily Hydrochlorothiazide Discontinued 12.5 MG PO Daily April 25, 2019 12:00am November 29, 2022 9:20am hydroCHLOROthiaz alberto (HYDRODIURIL) 25 MG tablet Take 12.5 mg by mouth every other day 0 Active End: 05-12-2021 take 2 tablets by mouth every other day hydroCHLOROthiazide (HYDRODIURIL) 12.5 MG tablet hydrochlorothiazide 12.5 mg tablet Take 2 tablets every other day by oral route for 30 days. 0 05/12/2021 Discontinued Comment on above: Take 12.5 mg by mout h once daily. 24 hr isosorbide mononitrate 60 mg extended release oral tablet (20 sources) Nitrate Vasodilator Start: 2 take 1 tablet by mouth once daily in the morning isosorbide mononitrate 60 mg ER Tab 60 mg = 1 tab(s), Oral, qAM, Refills(s) 0 Start Date: 09/02/22 Status: Ordered Start: 04-25-2019 take 120 mg by mouth once shasta y Isosorbide Mononitrate Active 120 MG PO Daily April 25, 2019 12:00am take 1 tablet by zechariah th twice daily, then take 1 tablet by mouth every twenty-four hours isosorbide mononitrate ER (IMDUR) 60 mg 24 hr tablet Take 60 mg by mouth twice daily. 0 Active Comment on above: Take 60 mg by mouth twice daily. levothyroxine sodium 0.112 mg oral tablet (20 sources) l-Thyroxine Start: 2 take 1 tablet by mouth once daily levothyroxine 112 mcg (0.112 mg) Tab 112 mcg = 1 tab(s), Oral, Daily, Refills(s) 0 Start Date: 09/02/22 Status: Ordered Start: 04-25-2019 take 1 tablet by zechariah th once daily levothyroxine (SYNTHROID) 112 MCG tablet Take 112 mcg by mouth daily 0 04/19/2021 Active Start: 12-08-2016 levothyroxine (SYNTHROID) 112 mcg tablet Take 125 mcg by mouth once daily. 0 12/08/2016 Active End: 05-12-2021 take 1 tablet by mouth once daily levothyroxine (SYNTHROID) 125 MCG tablet Take 125 mcg by mouth Daily 0 05/12/2021 Discontinued Comment on above: Take 125 mcg by mout h once daily. lidocaine 0.05 mg/mg topical ointment (1 source) Antiarrhythmic, Amide Local Anesthetic Start: 1 End: 1 lidocaine (XYLOCAINE) 5 % ointment Apply topically as needed to the affected area. 50 g 1 06/15/2021 06/15/2021 Discontinued (Stop Taking at Discharge) liothyronine sodium 0.005 mg oral tablet (20 sources) l-Triiodothyronine Start: 3 take 5 ug by mouth once daily Liothyronine Active 5 MCG PO Daily November 29, 2022 12:00am Start: 09-02-2022 take 2 tablets by mo [facility] once daily Cytomel 5 mcg Tab 10 mcg = 2 tab(s), Oral, Daily, Refills(s) 0 Start Date: 09/02/22 Status: Ordered take 1 tablet by zechariah every twenty-four hours Liothyronine Sodium 5 MCG 1 tablet on an empty stomach Orally Once a day Active Comment on above: Take 5 mcg by mouth once daily. metFORMIN hydrochloride 500 mg oral tablet (20 sources) Biguanide Start: 9 take 1 tablet by mouth twice daily metformin 500 mg Tab 500 mg = 1 tab(s), Oral, BID, Refills(s) 0 Start Date: 09/02/22 Status: Ordered Comment on above: Take 500 mg by mouth twice daily with meals. 24 hr metoprolol succinate 200 mg extended release oral tablet (20 sources) beta-Adrenergic Mark Start: 9 take 1 tablet by mouth once daily metoprolol 200 mg ER Tab 200 mg = 1 tab(s), Oral, Daily, Refills(s) 0 Start Date: 09/02/22 Status: Ordered End: 06-20-2023 take 0.5 tablet by mouth once daily metoprolol tartrate, short acting, (LOPRESSOR) 100 mg tablet Take 100 mg by mouth twice daily. Patient takes 1/2 tab 2x a day 0 06/20/2023 Discontinued (Duplicate Entry) take 200 mg by mouth once daily Metoprolol Succinate 200 MG CS24 Take 200 mg by mouth daily 0 Active metoprolol succi crystal ER (TOPROL XL) 200 mg 24 hr tablet metoprolol succinate ER 200 mg tablet,extended release 24 hr 0 Active Comment on above: Take 100 mg by mouth twice daily. Patient takes 1/2 tab 2x a day metoprolol succinate ER 200 mg tablet,extended release 24 hr 200 mg. nitrofurantoin 5 mg/ml oral suspension (2 sources) Nitrofuran Antibacterial Start: 023 take 50 mg by mouth four times daily at mealtime Nitrofurantoin Active 50 MG PO Four times daily November 29, 2022 12:00am must administer with a meal/food take 50 mg by mouth four times d aily nitrofurantoin (FURADANTIN) 25 MG/5ML suspension Take 50 mg by mouth 4 times daily 0 Active nystatin 100 unt/mg topical powder (7 sources) Polyene Antifungal Start: 06-28-2022 nystatin (M YCOSTATIN) 368288 UNIT/GM powder Apply 3 times daily. 60 g 10 06/28/2022 Active nystatin (MYCOST ATIN) 048100 UNIT/GM powder Apply topically 2 times daily as needed 0 Active [id number]-Epa-Fish Oil (Coolidge-3 Fish Oil) 300-1,000 mg Capsule (1 source) Start: 04-25-2019 Jwwfl-1w-Fww-Epa-Fish Oil (Coolidge-3 Fish Oil) 300-1,000 mg Capsule Active 2 CAP PO Twice daily April 25, 2019 12:00am ondansetron 4 mg disintegrating oral tablet (14 sources) Serotonin-3 Receptor Antagonist Start: 09-02-2022 take 1 tablet by mouth four times daily ondansetron 4 mg Dis Tab 4 mg = 1 tab(s), Oral, QID, Refills(s) 0 Start Date: 09/02/22 Status: Ordered Start: 06-28-2022 End: 06-29-2022 ondansetron (ZOFRAN) injecti on 4 mg Start: 12-13-2021 End: 12-13-2021 ondansetron (ZOFRAN) injecti on 4 mg End: 06-20-2023 take 1 tablet by mouth every eight hours as needed ondansetron (ZOFRAN) 4 mg tablet Take 4 mg by mouth every 8 hours as needed for nausea/vomiting. 0 06/20/2023 Discontinued (Discontinued by Patient) Comment on above: Take 4 mg by mouth e very 8 hours as needed for nausea/vomiting. pantoprazole 40 mg delayed release oral tablet (14 sources) Proton Pump Inhibitor Start: 09-02-20 take 1 tablet by mouth once daily Pantoprazole [address] Tab 40 mg = 1 tab(s), Oral, Daily, Refills(s) 0 Start Date: 09/02/22 Status: Ordered Start: 09-02-2022 End: 06-14-2021 take 1 tablet by mouth once daily Pantoprazole [address] Tab 40 mg = 1 tab(s), Oral, Daily, Refills(s) 0 Start Date: 09/02/22 Status: Ordered End: 06-20-2023 take 1 tablet by mouth once daily pantoprazole DR (PROTONIX) 40 mg tablet Take 40 mg by mouth once daily. 0 06/20/2023 Discontinued (Discontinued by Patient) Comment on above: Take 40 mg by mouth once daily. pramoxine hydrochloride 10 mg/ml rectal foam (2 sources) Start: 06-28-20 End: 06-28-20 pramoxine HCl (PROCTOFOAM) 1 % foam Apply to hemorrhoids and anal area for postop pain as needed 15 g 0 06/28/2022 06/28/2022 Discontinued (REORDER) silver sulfADIAZINE 10 mg/ml topical cream (2 sources) Sulfonamide Antibacterial Start: 06-28-20 End: 06-28-20 silver sulfADIAZINE (SILVADENE) 1 % cream Apply topically daily. 25 g 1 06/28/2022 06/28/2022 Discontinued (REORDER) simvastatin 20 mg oral tablet (20 sources) HMG-CoA Reductase Inhibitor Start: 09-02-20 End: 05-12-20 take 1 tablet by mouth once daily at bedtime simvastatin 20 mg Tab 20 mg = 1 tab(s), Oral, Once a day (at bedtime), Refills(s) 0 Start Date: 09/02/22 Status: Ordered Start: 04-25-2019 take 20 mg by mouth once daily in the evening Simvastatin Active 20 MG PO Every evening April 25, 2019 12:00am simvastatin (ZOC OR) 20 mg tablet Take 40 mg by mouth daily at bedtime. Cut in half 0 Active take 0.5 tablet by m outh once daily simvastatin (ZOCOR) 40 MG tablet Take 40 mg by mouth daily 1/2 tabs 0 Active Comment on above: Take 40 mg by mouth daily at bedtime. Cut in half 5 ml sodium chloride 9 mg/ml injection (9 sources) Start: 06-28-2022 0.9 % sodium chloride infusion Start: 06-28-2022 sodium chlorid e flush 0.9 % injection 5-40 mL Start: 12-13-2021 sodium chlorid e flush 0.9 % injection 5-40 mL Start: 12-13-2021 0.9 % sodium c hloride infusion Start: 12-13-2021 sodium chlorid e flush 0.9 % injection 5-40 mL spironolactone 25 mg oral tablet (7 sources) Aldosterone Antagonist Start: 09-22-2022 take 0.5 tablet by mouth in the morning spironolactone (ALDACTONE) 25 MG tablet TAKE 1/2 TABLET BY MOUTH IN THE MORNING 0 09/22/2022 Active sucralfate 1000 mg oral tablet (20 sources) Aluminum Complex Start: 11-29-2022 take 1 g by mouth at bedtime Sucralfate Active 1 GM PO Before meals and at bedtime November 29, 2022 12:00am Start: 09-02-2022 Carafate 1 gra m Tab 1 gm = 1 tab(s), Oral, QIDACHS, Refills(s) 0 Start Date: 09/02/22 Status: Ordered Sucralfate Activ e Comment on above: Take 1 g by mouth fo ur times daily. Sulfamethoxazole / Trimethoprim (2 sources) Dihydrofolate Reductase Inhibitor Antibacterial, Sulfonamide Antimicrobial Bactrim Active triamcinolone acetonide 1 mg/ml topical cream (6 sources) Corticosteroid triamcinolone (KENALOG) 0.1 % cream Apply topically 2 times daily as needed 0 Active Vitamin D3 (2 sources) Vitamin D3 Activ e Vitamin D3 2000 intl units oral Tab (4 sources) Start: 022 take 1 tablet by mouth once daily Vitamin D3 2000 intl units oral Tab 50 mcg, Oral, Daily, tab(s), Refills(s) 0 Start Date: 09/02/22 Status: Ordered Completed/Discontinued Medications Medication Drug Class(es) Dates Sig (Normalized) Sig (Original) acetaminophen 500 mg oral tablet (20 sources) Start: 04-30-2020 End: 07-28-2022 take 2 tablets by mouth every six hours as needed acetaminophen (TYLENOL EXTRA STRENGTH) 500 mg tablet Take 2 tablets by mouth every 6 hours as needed for Pain. 60 tablet 0 04/30/2020 Active End: 06-28-2022 take 2 tablets by mouth every four hours as needed for pain acetaminophen (TYLENOL) 325 MG tablet Take 650 mg by mouth every 4 hours as needed for Pain 0 06/28/2022 Discontinued (Stop Taking at Discharge) End: 06-28-2022 take 1 tablet by mouth every four hours as needed Acetaminophen (TYLENOL ARTHRITIS PAIN PO) Take 1 tablet by mouth every 4 hours as needed 0 06/28/2022 Discontinued (Stop Taking at Discharge) Comment on above: Take 2 tablets by mo [facility] every 6 hours as needed for Pain. albuterol 0.833 mg/ml / ipratropium bromide 0.167 mg/ml inhalation solution (1 source) Anticholinergic, beta2-Adrenergic Agonist Start: 06-15-2021 End: 06-15-2021 ipratropium-albuterol (DUONEB) nebulizer solution 1 ampule calcium chloride 0.0014 meq/ml / potassium chloride 0.004 meq/ml / sodium chloride 0.103 meq/ml / sodium lactate 0.028 meq/ml injectable solution (3 sources) Start: 06-28-2022 End: 06-28-2022 lactated ringers infusion Start: 12-13-2021 lactated ringe rs infusion Start: 06-15-2021 lactated ringe rs infusion cetirizine hydrochloride 10 mg oral capsule (9 sources) Histamine-1 Receptor Antagonist Start: 04-25-2019 End: 11-29-2022 take 1 tablet by mouth twice daily Cetirizine (Zyrtec) 10 mg Capsule Discontinued 1 TAB PO Twice daily April 25, 2019 12:00am November 29, 2022 9:23am Start: 01-28-2019 End: 06-20-2023 take 1 tablet by mouth twice daily cetirizine (ZYRTEC) 10 mg tablet Take 10 mg by mouth twice daily. 11 01/28/2019 06/20/2023 Discontinued (Discontinued by Patient) Comment on above: Take 10 mg by mouth twice daily. citalopram 20 mg oral tablet (9 sources) Serotonin Reuptake Inhibitor Start: 01-02-20 End: 11-30-19 citalopram (CELEXA) 20 mg tablet docusate sodium 100 mg oral capsule (8 sources) Start: 04-30-20 End: 06-20-20 take 2 capsules by mouth every twenty-four hours as needed docusate sodium (COLACE) 100 mg capsule Take 2 capsules by mouth at bedtime as needed (opioid-induced constipation). 60 capsule 0 04/30/2020 06/20/2023 Discontinued (Discontinued by Patient) Comment on above: Take 2 capsules by m outh at bedtime as needed (opioid-induced constipation). febuxostat 40 mg oral tablet (1 source) Xanthine Oxidase Inhibitor Start: 06-09-20 take 1 tablet by mouth once febuxostat (ULORIC) 40 mg tab Take 1 tablet by mouth every afternoon. 0 06/09/2023 Active Comment on above: Take 1 tablet by zechariah th every afternoon. 30 actuat fluticasone furoate 0.1 mg/actuat / vilanterol 0.025 mg/actuat dry powder inhaler (8 sources) Corticosteroid, beta2-Adrenergic Agonist Start: 08-21-20 BREO ELLIPTA 100-25 mcg/dose inhaler Inhale 1 Inhalation as instructed once daily. 0 08/21/2017 Active Comment on above: Inhale 1 Inhalation as instructed once daily. 60 actuat formoterol fumarate 0.005 mg/actuat / mometasone furoate 0.1 mg/actuat metered dose inhaler (8 sources) Corticosteroid, beta2-Adrenergic Agonist Start: 10-06-19 End: 06-20-20 DULERA 100-5 mcg/actuation inhaler hydrALAZINE hydrochloride 100 mg oral tablet (20 sources) Arteriolar Vasodilator Start: 01-02-20 take 1 tablet by mouth three times daily hydrALAZINE (APRESOLINE) 100 mg tablet Take 100 mg by mouth three times daily. 11 01/01/2019 Active Comment on above: Take 100 mg by mouth three times daily. levoFLOXacin 750 mg oral tablet (10 sources) Quinolone Antimicrobial Start: 09-21-19 End: 06-20-20 levoFLOXacin (LEVAQUIN) 750 mg tablet Start: 12-09-2021 take 1 tablet by zechariah th once daily levoFLOXacin (LEVAQUIN) 500 MG tablet TAKE 1 TABLET BY MOUTH EVERY DAY 0 12/09/2021 Active take 1 tablet by zechariah th once daily LEVOFLOXACIN PO Take 1 tablet by mouth daily 0 Active meloxicam 15 mg oral tablet (6 sources) Nonsteroidal Anti-inflammatory Drug Start: 11-02-2022 take 1 tablet by mouth once daily meloxicam (MOBIC) 15 mg tablet Take 15 mg by mouth once daily. 0 11/02/2022 Active Comment on above: Take 15 mg by mouth once daily. Wyozo-4-QWR-EPA- Fish Oil 1,000 mg (120 mg-180 mg) cap (8 sources) take 1 capsule by mouth twice daily Bqrjh-7-RGO-EPA- Fish Oil 1,000 mg (120 mg-180 mg) cap Take 2 g by mouth twice daily. 0 Active Comment on above: Take 2 g by mouth twice daily. potassium chloride 20 meq extended release oral tablet (9 sources) Start: 08-24-2022 take 1 tablet by mouth three times daily potassium chloride 20 mEq TbER TAKE 1 TABLET BY MOUTH THREE TIMES A DAY DO NOT CRUSH, CHEW, OR SPLIT. 0 08/24/2022 Active take 20 mEq by mouth twice daily POTASSIUM CHLORIDE PO Take 20 mEq by mouth 2 times daily 0 Active Comment on above: TAKE 1 TABLET BY ZECHAIRAH TH THREE TIMES A DAY DO NOT CRUSH, CHEW, OR SPLIT. predniSONE 5 mg oral tablet (2 sources) Start: 06-08-2023 predniSONE (DELTASONE) 5 mg tablet TAKE 6 TABLETS ON DAYS 1-3 DIRECTED AND DECREASE BY 1 TAB EVERY 3 DAYS 0 06/08/2023 Active Start: 01-11-2022 predniSONE (DE LTASONE) 20 MG tablet Comment on above: TAKE 6 TABLETS ON DA YS 1-3 DIRECTED AND DECREASE BY 1 TAB EVERY 3 DAYS Problems Active Problems Problem Classification Problem Date Documented Date Episodic/Chronic Acute bronchitis (1 source) Acute bronchitis, unspecified; 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: [ACUTE BRONCHITIS UNSPECIFIED] Onset: 11-17-2022 Episodic Allergic reactions (1 source) Eczema; 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: [Other specified dermatitis] Episodic Aortic; peripheral; and visceral artery aneurysms (4 sources) 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-02-2022 Chronic Asthma (1 source) Unspecified asthma, uncomplicated; 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: [UNSPECIFIED ASTHMA UNCOMPLICATED] Onset: 08-16-2022 Chronic Cancer of breast (20 sources) 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 female breast; 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: [Infiltrating duct carcinoma of breast] Onset: 09-09-2022 Chronic Cancer of other female genital organs (20 sources) Vaginal intraepithelial neoplasia; 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] Chronic Cardiac dysrhythmias (8 sources) Paroxysmal atrial fibrillation; 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: [Paroxysmal atrial fibrillation] Onset: 09-13-2022 09-02-2022 Chronic Chronic kidney disease (9 sources) Chronic kidney disease stage 2; 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: [Chronic kidney disease, stage 2 (mild)] Onset: 11-03-2022 09-02-2022 Chronic Chronic obstructive pulmonary disease and bronchiectasis (5 sources) Chronic obstructive lung disease; 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: [Chronic obstructive pulmonary disease, unspecified] Onset: 11-03-2022 09-02-2022 Chronic Conditions associated with dizziness or vertigo (4 sources) Brain stem vertigo 09-02-2022 Episodic Congestive heart failure; nonhypertensive (20 sources) Acute combined systolic and diastolic heart failure; 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: [Chronic diastolic heart failure] Onset: 02-15-2022 09-02-2022 Chronic Coronary atherosclerosis and other heart disease (15 sources) Coronary arteriosclerosis; 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: [Coronary atherosclerosis] Onset: 01-16-2017 09-02-2022 Chronic Diabetes mellitus with complications (6 sources) Type 2 diabetes mellitus with diabetic chronic kidney disease; 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: [Type 2 diabetes mellitus with diabetic peripheral angiopathy without gangrene] Onset: 09-30-2022 Chronic Diabetes mellitus without complication (20 sources) Diabetes mellitus; 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: [Type 2 diabetes mellitus] Onset: 01-16-2017 09-02-2022 Chronic Disorders of lipid metabolism (20 sources) Hypertriglyceridemia; 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: [Pure hypercholesterolemia] Onset: 01-16-2017 09-02-2022 Chronic Diverticulosis and diverticulitis (4 sources) Diverticular disease 09-02-2022 Chronic Esophageal disorders (5 sources) Gastroesophageal reflux disease; 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: [Gastro-esophageal reflux disease without esophagitis] Onset: 11-03-2022 09-02-2022 Chronic Essential hypertension (20 sources) Hypertensive disorder; 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: [Essential (primary) hypertension] Onset: 01-16-2017 09-02-2022 Chronic Hypertension with complications and secondary hypertension (2 sources) Hypertensive heart and chronic kidney disease with heart failure and stage 1 through stage 4 chronic kidney disease, or unspecified chronic kidney disease; 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: [Hypertensive heart disease with heart failure] Onset: 08-16-2022 Chronic Occlusion or stenosis of precerebral arteries (12 sources) Carotid artery stenosis; 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: [Occlusion and stenosis of bilateral carotid arteries] Chronic Osteoporosis (5 sources) Age-related osteoporosis without current pathological fracture; 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: [AGE-REL OSTEOPOR W/O CURR PATH FX] Onset: 07-23-2022 Chronic Other aftercare (5 sources) Long-term current use of anticoagulant; 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: [MCFP (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] Onset: 09-09-2022 Episodic Other aftercare (1 source) MCFP (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; 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: [RETIREMENT CURRNT USE ANTICOAGULANTS] Onset: 11-03-2022 Episodic Other aftercare (1 source) MCFP (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 oral hypoglycemic drugs; 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: [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 ENGINEER USE ORAL HYPOGLYCEMIC DX] Onset: 11-03-2022 Episodic Other aftercare (1 source) 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; 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: [OTH RETIREMENT CURRENT DRUG THERAPY] Onset: 11-03-2022 Episodic Other bone disease and musculoskeletal deformities (4 sources) Osteopenia 09-02-2022 Episodic Other connective tissue disease (4 sources) Other specified soft tissue disorders; 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: [Other specified soft tissue disorders] Onset: 11-29-2022 Episodic Other connective tissue disease (1 source) Pain in right lower leg Episodic Other connective tissue disease (2 sources) Repeated falls; 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: [Repeated falls] Onset: 03-20-2023 Episodic Other female genital disorders (3 sources) Dysplasia of vagina; 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, unspecified] Episodic Other nervous system disorders (2 sources) Other abnormalities of gait and mobility; 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: [Other abnormalities of gait and mobility] Onset: 07-10-2023 Episodic Other nutritional; endocrine; and metabolic disorders (4 sources) Body mass index 30+ - obesity 09-09-2022 Chronic Other skin disorders (1 source) Localized swelling, mass and lump, lower limb, bilateral; 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: [LOC SWELL MASS LUMP LOW LIMB DAVID] Onset: 11-06-2022 Episodic Other skin disorders (1 source) Eruption; 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: [Rash and other nonspecific skin eruption] Episodic Peripheral and visceral atherosclerosis (20 sources) Atherosclerosis of arteries of the extremities; 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: [Peripheral vascular disease] Onset: 01-16-2017 09-02-2022 Chronic Residual codes; unclassified (4 sources) Edema 09-02-2022 Episodic Residual codes; unclassified (3 sources) Localized edema Episodic Residual codes; unclassified (4 sources) Edema, unspecified; 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: [EDEMA UNSPECIFIED] Onset: 11-02-2022 Episodic Residual codes; unclassified (1 source) Family history of malignant neoplasm of breast; 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: [FAMILY HX MALIG NEOPLASM OF BREAST] Onset: 11-03-2022 Episodic Screening and history of mental health and substance abuse codes (1 source) Personal history of nicotine dependence; 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: [PERSONAL HISTORY OF NICOTINE DEPEND] Onset: 11-03-2022 Episodic Spondylosis; intervertebral disc disorders; other back problems (4 sources) Cervical disc disorder 09-02-2022 Chronic Spondylosis; intervertebral disc disorders; other back problems (4 sources) Chronic low back pain 09-02-2022 Episodic Substance-related disorders (8 sources) Moderate smoker (20 or less per day) ; 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: [Nicotine dependence, cigarettes, uncomplicated] Onset: 01-16-2017 01-20-2017 Chronic Thyroid disorders (13 sources) Hypothyroidism; 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: [Hypothyroidism, unspecified] Onset: 01-16-2017 09-02-2022 Chronic Unclassified (4 sources) CONTACT W/AND (SUSP) EXPOS COVID-19; 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: [CONTACT W/AND (SUSP) EXPOS COVID-19] Onset: 08-16-2022 Unclassified (1 source) COUGH, UNSPECIFIED; 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: [COUGH, UNSPECIFIED] Onset: 08-13-2022 Unclassified (2 sources) BX; 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: [BX] Onset: 11-24-2022 Urinary tract infections (4 sources) Urinary tract infection, site not specified; 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: [UTI SITE NOT SPECIFIED] Onset: 01-19-2023 Episodic Viral infection (4 sources) COVID-19; 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: [COVID-19] Onset: 03-17-2022 Past or Other Problems Problem Classification Problem Date Documented Da te Episodic/Chronic Cancer of other female genital organs (8 sources) High grade squamous intraepithelial lesion on vaginal Papanicolaou smear; 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: [High grade squamous intraepithelial lesion on cytologic smear of vagina (HGSIL)] Onset: 04-13-2021 04-13-2021 Episodic Coronary atherosclerosis and other heart disease (3 sources) Presence of coronary angioplasty implant and graft; 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: [PRESENCE COR ANGPLSTY IMPLANT AND GRAFT] Onset: 09-13-2022 Episodic Deficiency and other anemia (1 source) Anemia, unspecified; 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: [ANEMIA UNSPECIFIED] Onset: 08-25-2022 Episodic Fluid and electrolyte disorders (4 sources) Hypokalemia; 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: [HYPOKALEMIA] Onset: 08-08-2022 Episodic Gastritis and duodenitis (4 sources) Gastritis, unspecified, without bleeding; 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: [GASTRITIS UNS WITHOUT BLEEDING] Onset: 03-16-2022 Episodic Gastrointestinal hemorrhage (9 sources) Rectal hemorrhage; 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: [Hemorrhage of anus and rectum] Onset: 08-14-2022 09-02-2022 Episodic Heart valve disorders (1 source) Cardiac murmur, unspecified; 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: [CARDIAC MURMUR UNSPECIFIED] Onset: 04-16-2022 Episodic Immunizations and screening for infectious disease (1 source) Encounter for immunization; 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: [ENCOUNTER FOR IMMUNIZATION] Onset: 03-18-2022 Episodic Nonmalignant breast conditions (4 sources) Unspecified lump in the right breast, upper outer quadrant; 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: [UNS LUMP IN RT BREAST UP OUTR QUAD] Onset: 08-13-2022 Episodic Other aftercare (1 source) 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; 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: [RETIREMENT CURRENT USE OF ASPIRIN] Onset: 08-25-2022 Episodic Other female genital disorders (8 sources) Vaginal lesion; 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: [Other specified noninflammatory disorders of vagina] Onset: 01-20-2017 01-20-2017 Episodic Other female genital disorders (8 sources) Vaginal intraepithelial neoplasia grade 2; 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: [Moderate vaginal dysplasia] Onset: 10-13-2017 10-13-2017 Episodic Other female genital disorders (1 source) Other specified noninflammatory disorders of vagina; 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: [Other specified noninflammatory disorders of vagina] Onset: 04-06-2023 Episodic Other female genital disorders (2 sources) Dysplasia of vagina, unspecified; 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, unspecified] Onset: 03-06-2023 Episodic Other gastrointestinal disorders (4 sources) Diarrhea, unspecified; 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: [DIARRHEA UNSPECIFIED] Onset: 08-23-2022 Episodic Other lower respiratory disease (4 sources) Dyspnea, unspecified; 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: [DYSPNEA UNSPECIFIED] Onset: 03-15-2022 Episodic Other lower respiratory disease (4 sources) Other forms of dyspnea; 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: [OTHER FORMS OF DYSPNEA] Onset: 02-09-2022 Episodic Other screening for suspected conditions (not mental disorders or infectious disease) (8 sources) Other abnormal and inconclusive findings on diagnostic imaging of breast; 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: [Encounter for screening mammogram for malignant neoplasm of breast] Onset: 07-19-2022 Episodic Other upper respiratory disease (1 source) Nasal congestion; 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: [NASAL CONGESTION] Onset: 08-13-2022 Episodic Residual codes; unclassified (7 sources) Postoperative state; 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: [Other specified postprocedural states] Onset: 12-13-2021 Resolved: 01-12-2022 Episodic Residual codes; unclassified (1 source) Acquired absence of both cervix and uterus; 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: [ACQUIRED ABSENCE BOTH CERVIX AND UTERUS] Onset: 08-16-2022 Episodic Residual codes; unclassified (1 source) Family history of malignant neoplasm of other organs or systems; 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: [FAM HX MALIG NEOPLASM OTH ORGN/SYS] Onset: 07-23-2022 Episodic Unclassified (6 sources) Complications due to vascular device, implant, and graft; 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: [Complications due to vascular device, implant, and graft] Unclassified (6 sources) E coli infection; 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: [E coli infection] Unclassified (1 source) CONTACT W/AND (SUSP) EXPOS COVID-19; 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: [CONTACT W/AND (SUSP) EXPOS COVID-19] Onset: 11-16-2022 Results Test Name Value Interpretation Reference Range Facility Consultation Noteon 06-21-20 23 Consultation Note [id number]#[id number] [id number] Normal [facility] CBC W Auto Differential pane l (Bld)on 06-20-2023 Basophils (Bld) [#/Vol] 0.03 10*3/uL Normal <0.11 [facility] Comment on above: Order Comment: Speci men Type: BLOOD SPECIMENOrdering Facility: [facility] Address: [address] [place] [address] Performed By: #### 5 7021-8 ####[facility] LABCLIA [id number] [place] [address] Basophils/100 WBC (Bld) 0.3 % Normal [facility] Comment on above: Order Comment: Speci men Type: BLOOD SPECIMENOrdering Facility: [facility] Address: [address] [place] [address] Performed By: #### 5 7021-8 ####[facility] LABCLIA [id number] [place] [address] Differential cell count method Nom (Bld) Auto Normal [facility] Comment on above: Order Comment: Speci men Type: BLOOD SPECIMENOrdering Facility: [facility] Address: [address] [place] [address] Performed By: #### 5 7021-8 ####[facility] LABCLIA [id number] [place] [address] Eosinophils (Bld) [#/Vol] 10*3/uL Normal <0.46 [facility] Comment on above: Order Comment: Speci men Type: BLOOD SPECIMENOrdering Facility: [facility] Address: [address] [place] [address] Performed By: #### 5 7021-8 ####[facility] LABIA [id number] [place] [address] Eosinophils/100 WBC (Bld) 0.2 % Normal [facility] Comment on above: Order Comment: Speci men Type: BLOOD SPECIMENOrdering Facility: [facility] Address: [address] [place] [address] Performed By: #### 5 7021-8 ####[facility] LABCLIA [id number] [place] [address] Erythrocyte distribution width (RBC) [Ratio] 14.4 % Normal 11.5-15.0 [facility] Comment on above: Order Comment: Speci men Type: BLOOD SPECIMENOrdering Facility: [facility] Address: [address] [place] [address] Performed By: #### 5 7021-8 ####[facility] LABCLIA [id number] [place] [address] Hematocrit (Bld) [Volume fraction] 34.9 % Low 36.0-46.0 [facility] Comment on above: Order Comment: Speci men Type: BLOOD SPECIMENOrdering Facility: [facility] Address: [address] [place] [address] Performed By: #### 5 7021-8 ####[facility] LABCLIA [id number] [place] [address] Hemoglobin (Bld) [Mass/Vol] 10.9 g/dL Low 11.5-15.5 [facility] Comment on above: Order Comment: Speci men Type: BLOOD SPECIMENOrdering Facility: [facility] Address: [address] [place] [address] Performed By: #### 5 7021-8 ####[facility] LABCLIA [id number] [place] [address] Immature granulocytes (Bld) [#/Vol] 0.11 10*3/uL High <0.10 [facility] Comment on above: Order Comment: Speci men Type: BLOOD SPECIMENOrdering Facility: [facility] Address: [address] [place] [address] Performed By: #### 5 7021-8 ####[facility] LABCLIA [id number] [place] [address] Immature granulocytes/100 WBC (Bld) 1.1 % Normal [facility] Comment on above: Order Comment: Speci men Type: BLOOD SPECIMENOrdering Facility: [facility] Address: [address] [place] [address] Performed By: #### 5 7021-8 ####[facility] LABCLIA [id number] [place] [address] Lymphocytes (Bld) [#/Vol] 1.97 10*3/uL Normal 1.00-4.00 [facility] Comment on above: Order Comment: Speci men Type: BLOOD SPECIMENOrdering Facility: [facility] Address: [address] [place] [address] Performed By: #### 5 7021-8 ####[facility] LABCLIA [id number] [place] [address] Lymphocytes/100 WBC (Bld) 19.3 % Normal [facility] Comment on above: Order Comment: Speci men Type: BLOOD SPECIMENOrdering Facility: [facility] Address: [address] [place] [address] Performed By: #### 5 7021-8 ####[facility] LABCLIA [id number] [place] [address] MCH (RBC) [Entitic mass] 29.9 pg Normal 26.0-34.0 [facility] Comment on above: Order Comment: Speci men Type: BLOOD SPECIMENOrdering Facility: [facility] Address: [address] [place] [address] Performed By: #### 5 7021-8 ####[facility] LABCLIA [id number] [place] [address] MCHC (RBC) [Mass/Vol] 31.2 g/dL Normal 30.5-36.0 [facility] Comment on above: Order Comment: Speci men Type: BLOOD SPECIMENOrdering Facility: [facility] Address: [address] [place] [address] Performed By: #### 5 7021-8 ####[facility] LABCLIA [id number] [place] [address] MCV (RBC) [Entitic vol] 95.6 fL Normal 80.0-100.0 [facility] Comment on above: Order Comment: Speci men Type: BLOOD SPECIMENOrdering Facility: [facility] Address: [address] [place] [address] Performed By: #### 5 7021-8 ####[facility] LABCLIA [id number] [place] [address] Monocytes (Bld) [#/Vol] 0.49 10*3/uL Normal <0.87 [facility] Comment on above: Order Comment: Speci men Type: BLOOD SPECIMENOrdering Facility: [facility] Address: [address] [place] [address] Performed By: #### 5 7021-8 ####[facility] LABCLIA [id number] [place] [address] Monocytes/100 WBC (Bld) 4.8 % Normal [facility] Comment on above: Order Comment: Speci men Type: BLOOD SPECIMENOrdering Facility: [facility] Address: [address] [place] [address] Performed By: #### 5 7021-8 ####[facility] LABCLIA [id number] [place] [address] Neutrophils (Bld) [#/Vol] 7.59 10*3/uL High 1.45-7.50 [facility] Comment on above: Order Comment: Speci men Type: BLOOD SPECIMENOrdering Facility: [facility] Address: [address] [place] [address] Performed By: #### 5 7021-8 ####[facility] LABCLIA [id number] [place] [address] Neutrophils/100 WBC (Bld) 74.3 % Normal [facility] Comment on above: Order Comment: Speci men Type: BLOOD SPECIMENOrdering Facility: [facility] Address: [address] [place] [address] Performed By: #### 5 7021-8 ####[facility] LABCLIA [id number] [place] [address] Nucleated RBC (Bld) [#/Vol] 10*3/uL Normal <0.01 [facility] Comment on above: Order Comment: Speci men Type: BLOOD SPECIMENOrdering Facility: [facility] Address: [address] [place] [address] Performed By: #### 5 7021-8 ####[facility] LABCLIA [id number] [place] [address] Nucleated RBC/100 WBC (Bld) [Ratio] 0.0 /100 WBC Normal [facility] Comment on above: Order Comment: Speci men Type: BLOOD SPECIMENOrdering Facility: [facility] Address: [address] [place] [address] Performed By: #### 5 7021-8 ####[facility] LABCLIA [id number] [place] [address] Platelet mean volume (Bld) [Entitic vol] 9.3 fL Normal 9.0-12.7 [facility] Comment on above: Order Comment: Speci men Type: BLOOD SPECIMENOrdering Facility: [facility] [facility] Address: [address] [place] [address] Performed By: #### 5 7021-8 ####[facility] LABCLIA [id number] [place] [address] Platelets (Bld) [#/Vol] 275 10*3/uL Normal 150-400 [facility] Comment on above: Order Comment: Speci men Type: BLOOD SPECIMENOrdering Facility: [facility] Address: [address] [place] [address] Performed By: #### 5 7021-8 ####[facility] LABCLIA [id number] [place] [address] RBC (Bld) [#/Vol] 3.65 10*6/uL Low 3.90-5.20 [facility] Comment on above: Order Comment: Speci men Type: BLOOD SPECIMENOrdering Facility: [facility] Address: [place] [address] Performed By: #### 5 7021-8 ####[facility] LABCLIA [id number] [place] [address] WBC (Bld) [#/Vol] 10.21 10*3/uL Normal 3.70-11.00 [facility] Comment on above: Order Comment: Speci men Type: BLOOD SPECIMENOrdering Facility: [facility] Address: [address] [place] [id number] Performed By: #### 5 7021-8 ####[facility] LABCLIA [id number] [place] [address] CNOVSPon 06-20-2023 CNOVSP Visit (SP) Office (HEMASA) MCLEODHARMAN WOLFE ([id number]) 1940 F Date Time Provider Department 06/20/23 2:30 PM WINNIE GUZMÁN HEMASA During your visit today, we recorded the following information about you: Temperature Pulse Respiration Blood pressure 97.4 degrees 72/minute 16/minute 138/55 Weight Height 84.6 kg 1.549 m Winnie Guzmán PA-C 06/20/2023 3:58 PM Signed PATIENT NAME: [facility] [id number] ATTENDING PHYSICIAN: Wallace Stone MD DATE OF SERVICE: February 14, 2023 (Elements copied from Dr. Stone's note dated February 14, 2023, have been reviewed and updated where appropriate, and all reflect current assessment and medical decision making during today's encounter, June 20, 2023) CC: Follow up Diagnosis: T1b, N0, M0- R breast, Tumor 9 mm, Grade 2, Margins negative, Negative LVI, 2 SNL negative, ER and HI >95% positive, Her2 IHC 1+ Treatment History: R Breast Lumpectomy and SNL 10/19/2022 Decided not to have XRT Arimidex 11/2022 HPI: Harman Mcleod is a 82 year old year old female here for follow up. Taking her arimidex daily. No issues with hot flashes or joint complaints. No new pain or other medical issues. She is having fluctuations in her blood sugars. Her PCP is monitoring it. She also is now following with rheumatology for her elevated uric acid levels and arthritis. 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 Social History Tobacco Use Smoking status: Former Packs/day: 0.50 Years: 50.00 Additional pack years: 0.00 Total pack years: 25.00 Types: Cigarettes Quit date: 06/28/2018 Years since quittin.9 Passive exposure: Past Smokeless tobacco: Never Vaping Use Vaping Use: Never used Substance Use Topics Alcohol use: No Drug use: No FAMILY HISTORY Problem Relation Age of Onset Hypertension Mother Hyperlipidemia Mother other (non-insulin dependent diabetes mellitus) Mother other (heart disease) Mother other (cerebrovascular accident hypothyroid) Mother Cancer Father Arthritis Father Hypertension Father Asthma Father other (heart disease) Father Breast Cancer Sister Breast Cancer Other Past medical, social and family history reviewed without any changes. REVIEW OF SYSTEMS GENERAL: No weight loss, malaise or fevers. No night sweats. HEENT: Negative for headaches, No changes in hearing or vision, no nose bleeds or other nasal problems. RESPIRATORY: Negative for cough, wheezing and shortness of breath CARDIOVASCULAR: Negative for chest pain, leg swelling and palpitations GI: Negative for abdominal discomfort, blood in stools or black stools and change in bowel habits : Negative for dysuria, frequency and incontinence MUSCULOSKELETAL: Negative for joint pain or swelling, back pain, and muscle pain. SKIN: Negative for lesions, rash, and itching. HEMATOLOGY/LYMPHOLOGY Negative for prolonged bleeding, bruising easily, and swollen nodes. NEURO: Negative for numbness or tingling of hands/feet. No weakness. PHYSICAL EXAMINATION: BP 138/55 Pulse 72 Temp (Src) 97.4 (Temporal) Resp 16 Wt 186 lb 9.6 oz (84.6kg) SpO2 96% ECOG PERFORMANCE STATUS: 1- Restricted in physically strenuous activity. Carries out light duty. General: Alert and oriented, no distress, pleasant and cooperative. Heart: Regular, normal S1 and S2, no murmurs, rubs, or gallops Lungs: Clear to auscultation bilaterally Abdomen: Benign Extremities: Feet/ankles without edema, posterior tibial pulses full and symmetrical Breast: bilateral pendulous breasts without masses or skin changes noted. Lymph: no palpable bilateral cervical, SC and axillary nodes LABS: Glucose (mg/dL) Date Value 06/20/2023 273 04/28/2020 114 Potassium (mmol/L) Date Value 06/20/2023 5.1 04/28/2020 4.7 Sodium (mmol/L) Date Value 06/20/2023 142 04/28/2020 140 Chloride (mmol/L) Date Value 06/20/2023 103 04/28/2020 101 CO2 (mmol/L) Date Value 06/20/2023 30 04/28/2020 28 Creatinine (mg/dL) Date Value 06/20/2023 1.77 (more content not included)... Normal [facility] Comprehensive metabolic 2000 panelon 06-20-2023 Albumin [Mass/Vol] 4.0 g/dL Normal 3.9-4.9 [facility] Comment on above: Order Comment: Speci men Type: BLOOD SPECIMENOrdering Facility: [facility] Address: [address] [place] [address] Performed By: #### 2 4323-8 ####[facility] LABCLIA [id number] [place] [address] ALP [Catalytic activity/Vol] 72 U/L Normal 34-123 [facility] Comment on above: Order Comment: Speci men Type: BLOOD SPECIMENOrdering Facility: [facility] Address: [address] [place] [address] Performed By: #### 2 4323-8 ####[facility] LABCLIA [id number] [place] [address] ALT [Catalytic activity/Vol] 17 U/L Normal 7-38 [facility] Comment on above: Order Comment: Speci men Type: BLOOD SPECIMENOrdering Facility: [facility] Address: [address] [place] [address] Performed By: #### 2 4323-8 ####[facility] LABCLIA [id number] [place] [address] Anion gap [Moles/Vol] 9 mmol/L Normal 9-18 [facility] Comment on above: Order Comment: Speci men Type: BLOOD SPECIMENOrdering Facility: [facility] Address: [address] [place] [address] Performed By: #### 2 4323-8 ####[facility] LABCLIA [id number] [place] [address] AST [Catalytic activity/Vol] 11 U/L Low 13-35 [facility] Comment on above: Order Comment: Speci men Type: BLOOD SPECIMENOrdering Facility: [facility] Address: [address] [place] [address] Performed By: #### 2 4323-8 ####[facility] LABCLIA [id number] [place] [address] Bilirubin [Mass/Vol] 0.2 mg/dL Normal 0.2-1.3 [facility] Comment on above: Order Comment: Speci men Type: BLOOD SPECIMENOrdering Facility: [facility] Address: [address] [place], [place] [address] Performed By: #### 2 4323-8 ####[facility] LABCLIA [id number] [place] [address] Calcium [Mass/Vol] 10.1 mg/dL Normal 8.5-10.2 [facility] Comment on above: Order Comment: Speci men Type: BLOOD SPECIMENOrdering Facility: [facility] Address: [address] [place] [address] Performed By: #### 2 4323-8 ####[facility] LABCLIA [id number] [place] [address] Chloride [Moles/Vol] 103 mmol/L Normal 97-105 [facility] Comment on above: Order Comment: Speci men Type: BLOOD SPECIMENOrdering Facility: [facility] Address: [address] [place] [address] Performed By: #### 2 4323-8 ####[facility] LABCLIA [id number] [place] [address] CO2 [Moles/Vol] 30 mmol/L Normal 22-30 [facility] Comment on above: Order Comment: Speci men Type: BLOOD SPECIMENOrdering Facility: [facility] Address: [address] [place] [address] Performed By: #### 2 4323-8 ####[facility] LABCLIA [id number] [place] [address] Creatinine [Mass/Vol] 1.77 mg/dL High 0.58-0.96 [facility] Comment on above: Order Comment: Speci men Type: BLOOD SPECIMENOrdering Facility: [facility] Address: [address] [place] [address] Performed By: #### 2 4323-8 ####[facility] LABCLIA [id number] [place] [address] Creatinine and Glomerular filtration rate.predicted panel (S/P/Bld) 29 mL/min/1.73m??? Low >=60 [facility] Comment on above: Order Comment: Dimple de santiago Type: BLOOD SPECIMENOrdering Facility: [facility] Address: [address] [place] [address] Result Comment: Ramila mated Glomerular Filtration Rate (eGFR) is calculated using the 2020 CKD-EPI creatinine equation. This equation utilizes serum creatinine, sex, and age as parameters. The creatinine assay has traceable calibration to isotope dilution-mass spectrometry. Refer to KDIGO guidelines for clinical interpretation. In patients with unstable renal function, e.g. those with acute kidney injury, the eGFR may not accurately reflect actual GFR. Performed By: #### 2 4323-8 ####[facility] LABCLIA [id number] [place] [address] Glucose [Mass/Vol] 273 mg/dL High 74-99 [facility] Comment on above: Order Comment: Dimple de santiago Type: BLOOD SPECIMENOrdering Facility: [facility] Address: [place] [address] Result Comment: The [place] [employer] (ADA) provides guidance for cutoff values for fasting glucose and random glucose. The ADA defines fasting as no caloric intake for at least 8 hours. Fasting plasma glucose results between 100 to 125 mg/dL indicate increased risk for diabetes (prediabetes). Fasting plasma glucose results greater than or equal to 126 mg/dL meet the criteria for diagnosis of diabetes. In the absence of unequivocal hyperglycemia, results should be confirmed by repeat testing. In a patient with classic symptoms of hyperglycemia or hyperglycemic crisis, random plasma glucose results greater than or equal to 200 mg/dL meet the criteria for diagnosis of diabetes. Reference: Standards of Medical Care in Diabetes 2016, [place] [employer]. Diabetes Care. 2016.39(Suppl 1). Performed By: #### 2 4323-8 ####[facility] LABCLIA [id number] [place] [address] Potassium [Moles/Vol] 5.1 mmol/L Normal 3.7-5.1 [facility] Comment on above: Order Comment: Dimple de santiago Type: BLOOD SPECIMENOrdering Facility: [facility] Address: [place] [address] Performed By: #### 2 4323-8 ####[facility] LABCLIA [id number] [place] [address] Protein [Mass/Vol] 6.4 g/dL Normal 6.3-8.0 [facility] Comment on above: Order Comment: Speci men Type: BLOOD SPECIMENOrdering Facility: [facility] Address: [address] [place] [address] Performed By: #### 2 4323-8 ####[facility] LABCLIA [id number] [place] [address] Sodium [Moles/Vol] 142 mmol/L Normal 136-144 [facility] Comment on above: Order Comment: Speci men Type: BLOOD SPECIMENOrdering Facility: [facility] Address: [address] [place] [address] Performed By: #### 2 4323-8 ####[facility] LABCLIA [id number] [place] [address] Urea nitrogen [Mass/Vol] 40 mg/dL High 7-21 [facility] Comment on above: Order Comment: Speci men Type: BLOOD SPECIMENOrdering Facility: [facility] Address: [address] [place] [address] Performed By: #### 2 4323-8 ####[facility] LABCLIA [id number] [place] [address] Vaginitis DNA Probeon 2022 Manjula Negative Normal NEG [facility] Comment on above: Result Comment: for Manjula sp. Method of testing is a DNA probe intended for detection and identification of Manjula species, Gardnerella vaginalis, and Trichomonas vaginalis nucleic acid in vaginal fluid specimens from patients with symptoms of vaginitis/vaginosis. Performed By: #### V AGP #### [address] [id number] Geomatics Professor: Fidel Hylton MD Gardnerella Negative Normal NEG [facility] Comment on above: Result Comment: for Gardnerella vaginalis Performed By: #### V AGP #### [facility] Review Trackers [facility] [place], [place] [id number] Geomatics Professor: Fidel Hylton MD Trichomonas Negative Normal NEG [facility] Comment on above: Result Comment: for Trichomonas Vaginalis Performed By: #### V AGP #### [facility] Review Track[employer] [address] [place] [id number] Geomatics Professor: Fidel Hylton MD Source .VAGINAL SWAB Normal [facility] Comment on above: Performed By: #### V AGP #### [address] [id number] Geomatics Professor: Fidel Hylton MD Office Visiton 03-20-2023 Follow-up visit [id number] Harman Mcleod 1940 F Date Provider Department Center 03/20/2023 JOSE MARIA GARCIA [facility] Family History Problem Relation Age of Onset Stroke Mother Coronary artery disease Father Heart attack Father Family Status - Relation Status Age at Mother Father Level of Service:57405 HI OFFICE/OUTPATIENT ESTABLISHED MOD MDM 30-39 MIN Reason for Visit and Comments: Coronary Artery Disease [187] Atrial Fibrillation [80] Congestive Heart Failure [127] Hypertension [074776] Normal [facility] OPERATIVE REPORTon OPERATIVE REPORT [address] [address] OPERATIVE REPORT PATIENT NAME: HARMAN MCLEOD : 1940 MED REC NO: [id number] ROOM: ACCOUNT NO: [id number] ADMIT DATE: 03/06/2023 PROVIDER: Emma Garza MD DATE OF PROCEDURE: 03/06/2023 PREOPERATIVE DIAGNOSIS: Recurrent vaginal dysplasia. POSTOPERATIVE DIAGNOSIS: Recurrent vaginal dysplasia. OPERATION PERFORMED: Examination under anesthesia, carbon dioxide laser vaporization of vaginal dysplasia. COMPLICATIONS: None. BLOOD LOSS: Minimal. SURGEON: Emma Garza MD SENIOR PIPING DESIGNER: Mauri (resident). DISPOSITION: The patient to recovery room stable. SPECIMENS: No specimen sent to Pathology. OPERATIVE FINDINGS: The patient had a small 1-2 cm area of youvquvy-jf-trfmgs dysplasia along the anterior vagina from 12 o'clock to 2 o'clock. This area was completely vaporized with carbon dioxide laser. No other lesions noted. DESCRIPTION OF PROCEDURE: Informed consent was obtained. The patient was brought to the operating suite. She was given anesthesia. She was carefully examined. The aforementioned findings were noted. The laser was turned onto 15 campos. The lesion was outlined with a marking pen with adequate clinical margins. Using appropriate spot size and depth of penetration, the recurrent vaginal dysplasia was completely destroyed using carbon dioxide laser down to appropriate depth. There was minimal bleeding. There were no other lesions noted. The laser was turned off. The patient was extubated, awakened, moved to recovery room in stable condition. Sponge, lap, needle and instrument counts correct x2. Dr. Garza scrubbed and present for the entire procedure. EMMA GARZA MD [id number]/[email or web address] Doc#: [id number] CC: Normal [facility] Consultation Noteon 02-20-20 Consultation Note [id number] 0CD:127 Normal [facility] CBC W Auto Differential pane l (Bld)on 02-14-2023 Basophils (Bld) [#/Vol] 0.04 10*3/uL Normal <0.11 [facility] Comment on above: Order Comment: Speci men Type: BLOOD SPECIMENOrdering Facility: [facility] Address: [address] [place] [address] Performed By: #### 5 7021-8 ####[facility] LABCLIA [id number] [place] [address] Basophils/100 WBC (Bld) 0.4 % Normal [facility] Comment on above: Order Comment: Speci men Type: BLOOD SPECIMENOrdering Facility: [facility] Address: [address] [place] [address] Performed By: #### 5 7021-8 ####[facility] LABCLIA [id number] [place] [address] Differential cell count method Nom (Bld) Auto Normal [facility] Comment on above: Order Comment: Speci men Type: BLOOD SPECIMENOrdering Facility: [facility] Address: [address] [place] [address] Performed By: #### 5 7021-8 ####[facility] LABCLIA [id number] [place] [address] Eosinophils (Bld) [#/Vol] 0.20 10*3/uL Normal <0.46 [facility] Comment on above: Order Comment: Speci men Type: BLOOD SPECIMENOrdering Facility: [facility] Address: [address] [place] [address] Performed By: #### 5 7021-8 ####[facility] LABCLIA [id number] [place] [address] Eosinophils/100 WBC (Bld) 1.9 % Normal [facility] Comment on above: Order Comment: Speci men Type: BLOOD SPECIMENOrdering Facility: [facility] Address: [address] [place] [address] Performed By: #### 5 7021-8 ####[facility] LABCLIA [id number] [place] [address] Erythrocyte distribution width (RBC) [Ratio] 14.1 % Normal 11.5-15.0 [facility] Comment on above: Order Comment: Speci men Type: BLOOD SPECIMENOrdering Facility: [facility] Address: [address] [place] [address] Performed By: #### 5 7021-8 ####[facility] LABCLIA [id number] [place] [address] Hematocrit (Bld) [Volume fraction] 38.4 % Normal 36.0-46.0 [facility] Comment on above: Order Comment: Speci men Type: BLOOD SPECIMENOrdering Facility: [facility] Address: [address] [place] [address] Performed By: #### 5 7021-8 ####[facility] LABCLIA [id number] [place] [address] Hemoglobin (Bld) [Mass/Vol] 12.2 g/dL Normal 11.5-15.5 [facility] Comment on above: Order Comment: Speci men Type: BLOOD SPECIMENOrdering Facility: [facility] Address: [address] [place] [address] Performed By: #### 5 7021-8 ####[facility] LABCLIA [id number] [place] [address] Immature granulocytes (Bld) [#/Vol] 0.06 10*3/uL Normal <0.10 [facility] Comment on above: Order Comment: Speci men Type: BLOOD SPECIMENOrdering Facility: [facility] Address: [address] [place] [address] Performed By: #### 5 7021-8 ####[facility] LABIA [id number] [place] [address] Immature granulocytes/100 WBC (Bld) 0.6 % Normal [facility] Comment on above: Order Comment: Speci men Type: BLOOD SPECIMENOrdering Facility: [facility] Address: [address] [place] [address] Performed By: #### 5 7021-8 ####[facility] LABCLIA [id number] [place] [address] Lymphocytes (Bld) [#/Vol] 2.56 10*3/uL Normal 1.00-4.00 [facility] Comment on above: Order Comment: Speci men Type: BLOOD SPECIMENOrdering Facility: [facility] Address: [address] [place] [address] Performed By: #### 5 7021-8 ####[facility] LABCLIA [id number] [place] [address] Lymphocytes/100 WBC (Bld) 24.6 % Normal [facility] Comment on above: Order Comment: Speci men Type: BLOOD SPECIMENOrdering Facility: [facility] Address: [address] [place] [address] Performed By: #### 5 7021-8 ####[facility] LABCLIA [id number] [place] [address] MCH (RBC) [Entitic mass] 30.0 pg Normal 26.0-34.0 [facility] Comment on above: Order Comment: Speci men Type: BLOOD SPECIMENOrdering Facility: [facility] Address: [address] [place] [address] Performed By: #### 5 7021-8 ####[facility] LABIA [id number] [place] [address] MCHC (RBC) [Mass/Vol] 31.8 g/dL Normal 30.5-36.0 [facility] Comment on above: Order Comment: Speci men Type: BLOOD SPECIMENOrdering Facility: [facility] Address: [address] [place] [address] Performed By: #### 5 7021-8 ####[facility] LABIA [id number] [place] [address] MCV (RBC) [Entitic vol] 94.3 fL Normal 80.0-100.0 [facility] Comment on above: Order Comment: Speci men Type: BLOOD SPECIMENOrdering Facility: [facility] Address: [address] [place] [address] Performed By: #### 5 7021-8 ####[facility] LABIA [id number] [place] [address] Monocytes (Bld) [#/Vol] 0.86 10*3/uL Normal <0.87 [facility] Comment on above: Order Comment: Speci men Type: BLOOD SPECIMENOrdering Facility: [facility] Address: [address] [address] Performed By: #### 5 7021-8 ####[facility] LABCLIA [id number] [place] [address] Monocytes/100 WBC (Bld) 8.3 % Normal [facility] Comment on above: Order Comment: Speci men Type: BLOOD SPECIMENOrdering Facility: [facility] Address: [address] [place] [address] Performed By: #### 5 7021-8 ####[facility] LABCLIA [id number] [place] [address] Neutrophils (Bld) [#/Vol] 6.69 10*3/uL Normal 1.45-7.50 [facility] Comment on above: Order Comment: Speci men Type: BLOOD SPECIMENOrdering Facility: [facility] Address: [address] [place] [address] Performed By: #### 5 7021-8 ####[facility] LABCLIA [id number] [place] [address] Neutrophils/100 WBC (Bld) 64.2 % Normal [facility] Comment on above: Order Comment: Speci men Type: BLOOD SPECIMENOrdering Facility: [facility] Address: [address] [place] [address] Performed By: #### 5 7021-8 ####[facility] LABCLIA [id number] [place] [address] Nucleated RBC (Bld) [#/Vol] 10*3/uL Normal <0.01 [facility] Comment on above: Order Comment: Speci men Type: BLOOD SPECIMENOrdering Facility: [facility] Address: [address] [place] [address] Performed By: #### 5 7021-8 ####[facility] LABCLIA [id number] [place] [address] Nucleated RBC/100 WBC (Bld) [Ratio] 0.0 /100 WBC Normal [facility] Comment on above: Order Comment: Speci men Type: BLOOD SPECIMENOrdering Facility: [facility] Address: [address] [place] [address] Performed By: #### 5 7021-8 ####[facility] LABCLIA [id number] [place] [address] Platelet mean volume (Bld) [Entitic vol] 9.6 fL Normal 9.0-12.7 [facility] Comment on above: Order Comment: Speci men Type: BLOOD SPECIMENOrdering Facility: [facility] Address: [address] [place] [address] Performed By: #### 5 7021-8 ####[facility] LABCLIA [id number] [place] [address] Platelets (Bld) [#/Vol] 271 10*3/uL Normal 150-400 [facility] Comment on above: Order Comment: Speci men Type: BLOOD SPECIMENOrdering Facility: [facility] Address: [address] [place] [address] Performed By: #### 5 7021-8 ####[facility] LABCLIA [id number] [place] [address] RBC (Bld) [#/Vol] 4.07 10*6/uL Normal 3.90-5.20 [facility] Comment on above: Order Comment: Speci men Type: BLOOD SPECIMENOrdering Facility: [facility] Address: [address] [place] [address] Performed By: #### 5 7021-8 ####[facility] LABCLIA [id number] [place] [address] WBC (Bld) [#/Vol] 10.41 10*3/uL Normal 3.70-11.00 [facility] Comment on above: Order Comment: Speci men Type: BLOOD SPECIMENOrdering Facility: [facility] Address: [address] [place], [place] [address], [place] [address] Performed By: #### 5 7021-8 ####[facility] [id number] [place] [address] CNOVSPon 02-14-2023 CNOVSP Visit (SP) Office ([place]) HARMAN MCLEOD ([id number]) 1940 F Date Time Provider Department 02/14/23 10:30 AM WALLACE STONE During your visit today, we recorded the following information about you: Temperature Pulse Respiration Blood pressure 97.4 degrees 102/minute 16/minute 151/90 Weight Height 84.5 kg 1.549 m Wallace Stone MD 02/14/2023 10:49 AM Signed PATIENT NAME: Harman Mcleod CLINIC NO.: [id number] ATTENDING PHYSICIAN: Wallace Stone MD DATE OF SERVICE: February 14, 2023 Some of the elements of this note have been copied from my previous progress note dated 11/09/2022. All the information has been reviewed carefully. Dear Dr. Perry referring provider defined for this encounter. here is an update on a follow up visit on female Harman Mcleod at the clinic February 14, 2023 Diagnosis: T1b, N0, M0- R breast, Tumor 9 mm, Grade 2, Margins negative, Negative LVI, 2 SNL negative, ER and HI >95% positive, Her2 IHC 1+ Treatment History: R Breast Lumpectomy and SNL 10/19/2022 Decided not to have XRT Arimidex 11/2022 HPI: Harman Mcleod is a 82 year old year old female here for follow up. Tolerating the Arimidex well. She does have a rash on her elbow. 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 Social History Tobacco Use Smoking status: Former Packs/day: 0.50 Years: 50.00 Pack years: 25.00 Types: Cigarettes Quit date: 06/28/2018 Years since quittin.6 Passive exposure: Past Smokeless tobacco: Never Vaping Use Vaping Use: Never used Substance Use Topics Alcohol use: No Drug use: No FAMILY HISTORY Problem Relation Age of Onset Hypertension Mother Hyperlipidemia Mother other (non-insulin dependent diabetes mellitus) Mother other (heart disease) Mother other (cerebrovascular accident hypothyroid) Mother Cancer Father Arthritis Father Hypertension Father Asthma Father other (heart disease) Father Breast Cancer Sister Breast Cancer Other Past medical, social and family history reviewed without any changes. REVIEW OF SYSTEMS GENERAL: No weight loss, malaise or fevers. No night sweats. HEENT: Negative for headaches, No changes in hearing or vision, no nose bleeds or other nasal problems. RESPIRATORY: Negative for cough, wheezing and shortness of breath CARDIOVASCULAR: Negative for chest pain, leg swelling and palpitations GI: Negative for abdominal discomfort, blood in stools or black stools and change in bowel habits : Negative for dysuria, frequency and incontinence MUSCULOSKELETAL: Negative for joint pain or swelling, back pain, and muscle pain. SKIN: Negative for lesions, rash, and itching. HEMATOLOGY/LYMPHOLOGY Negative for prolonged bleeding, bruising easily, and swollen nodes. NEURO: Negative for numbness or tingling of hands/feet. No weakness. PHYSICAL EXAMINATION: BP 151/90 Pulse 102 Temp (Src) 97.4 (Temporal) Resp 16 Ht 5' .984 (1.55m) Wt 186 lb 3.2 oz (84.5kg) SpO2 95% BMI 35.20 kg/(m2). Wt 84.7 kg (186 lb 12.8 oz) BMI 35.31 kg/m2 Last 3 Encounter Wt Readings: Date: Wt: 11/09/2022 84.7 kg (186 lb 12.8 oz) 09/22/2022 84.8 kg (187 lb) 05/29/2020 90.4 kg (199 lb 6.4 oz) General appearance:ECOG PERFORMANCE STATUS: 1- Restricted in physically strenuous activity. Carries out light duty. Patient in NAD. Skin: Skin color, texture, turgor normal. No rashes or lesions. Eyes: Anicteric sclera. Pupils are equally round and reactive to light. Extraocular movements are intact. Lymph Nodes: No cervical, supraclavicular, axillary or inguinal adenopathy. Oropharynx: Lips, mucosa, and tongue normal. Back: No pain to percussion. Negative SLR test Lungs clear to auscultation, No wheezing or rhonchi Heart: RRR without murmur, gallop, or rubs. Abdomen soft, non-tender. No masses, organomegaly Extremities: No deformities. No edema Neuro: Gait and speech normal. Reflexes normal and symmetric. Muscular strength intact. Sensation grossly intact. Rectal: Deferred : Deferre (more content not included)... [facility] HAR[facility] MCLEOD ([id number]) 1940 F Date Time Provider Department 02/14/23 WALLACE STONE [facility] During your visit today, we recorded the following information about you: Angelica Bhakta Sec 02/14/2023 11:00 AM Signed Please ref to [facility] for Consult dx eczema They will call the patient to schedule after review of records. Janeth, Please fax records Dudley, Please check on this appt. Kira Ko [facility] 02/14/2023 1:14 PM Signed Records faxed to [facility]. Adriana Pereira Pss 02/22/2023 8:35 AM Signed Called [facility] office spoke with Coco. She states they have received this referral and they have called and left patient 2 messages to call their office back to schedule. As of now they are waiting for patient to call their office back. Adriana Pereira Pss Adriana Pereira Pss 03/01/2023 3:14 PM Signed Called [facility] spoke with Coco. Patient is scheduled to see Dr Patel on Saturday 03/03. Adriana Pereira Pss Allergies As of Date: 02/14/2023 Noted Allergy Reaction CEFDINIR 09/13/2022 14 - Other: See Comments 11 - Vomiting CIPROFLOXACIN 09/29/2017 14 - Other: See Comments Comments: tendon issues OXYCODONE-ACETAMINOPHE N 03/31/2013 5 - Intolerance 8 - GI Upset TRAMADOL 11/09/2022 1 - Mental Status Change Date Reviewed: 02/14/2023 Reviewed by: Wallace Stone MD - Fully Assessed Reason for Visit: Future Appointment [256] Prescriptions as of 03/01/2023 - meloxicam (MOBIC) 15 mg tablet Take 15 mg by mouth once daily. - anastrozole (ARIMIDEX) 1 mg tablet Take 1 tablet by mouth once daily. - potassium chloride 20 mEq TbER TAKE 1 TABLET BY MOUTH THREE TIMES A DAY DO NOT CRUSH, CHEW, OR SPLIT. - levoFLOXacin (LEVAQUIN) 750 mg tablet - sucralfate (CARAFATE) 1 gram tablet Take 1 g by mouth four times daily. - liothyronine (CYTOMEL) 5 mcg tablet Take 5 mcg by mouth once daily. - ondansetron (ZOFRAN) 4 mg tablet Take 4 mg by mouth every 8 hours as needed for nausea/vomiting. - pantoprazole DR (PROTONIX) 40 mg tablet Take 40 mg by mouth once daily. - acetaminophen (TYLENOL EXTRA STRENGTH) 500 mg tablet Take 2 tablets by mouth every 6 hours as needed for Pain. - docusate sodium (COLACE) 100 mg capsule Take 2 capsules by mouth at bedtime as needed (opioid-induced constipation). - furosemide (LASIX) 20 mg tablet Take 40 mg by mouth twice daily. - cetirizine (ZYRTEC) 10 mg tablet Take 10 mg by mouth twice daily. - citalopram (CELEXA) 20 mg tablet - apixaban (ELIQUIS) 2.5 mg tab(s) Take 5 mg by mouth twice daily. - hydrALAZINE (APRESOLINE) 100 mg tablet Take 100 mg by mouth three times daily. - hydroCHLOROthiazide (HYDRODIURIL, ESIDRIX) 12.5 mg tablet Take 12.5 mg by mouth once daily. - METOPROLOL SUCCINATE ORAL 200 mg. - DULERA 100-5 mcg/actuation inhaler - glimepiride (AMARYL) 4 mg tablet Take 4 mg by mouth twice daily with meals. - BREO ELLIPTA 100-25 mcg/dose inhaler Inhale 1 Inhalation as instructed once daily. - aspirin, enteric coated (ASPIRIN, ENTERIC COATED) 81 mg EC tablet Take 81 mg by mouth once daily. - levothyroxine (SYNTHROID) 112 mcg tablet Take 125 mcg by mouth once daily. - amLODIPine (NORVASC) 5 mg tablet Take by mouth once daily. - metoprolol tartrate, short acting, (LOPRESSOR) 100 mg tablet Take 100 mg by mouth twice daily. Patient takes 1/2 tab 2x a day - metFORMIN (GLUCOPHAGE) 500 mg tablet Take 500 mg by mouth twice daily with meals. - albuterol (PROVENTIL) 2.5 mg /3 mL (0.083 %) nebulizer solution Use 2.5 mg via nebulizer as needed. - simvastatin (ZOCOR) 20 mg tablet Take 40 mg by mouth daily at bedtime. Cut in half - Fdmjg-0-FSD-EPA-Fish Oil 1,000 mg (120 mg-180 mg) cap Take 2 g by mouth twice daily. - isosorbide mononitrate ER (IMDUR) 60 mg 24 hr tablet Take 60 mg by mouth twice daily. 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 Stage 3a chronic kidney disease (HCC) [N18.31] 02/14/2023 Encounter Status:Closed by ANGELICA MILLAN on 02/28/23 Normal [facility] Comprehensive metabolic 2000 panelon 02-14-2023 Albumin [Mass/Vol] 4.1 g/dL Normal 3.9-4.9 [facility] Comment on above: Order Comment: Speci men Type: BLOOD SPECIMENOrdering Facility: [facility] Address: [address] [place] [address] Performed By: #### 2 4323-8 ####[facility] LABCLIA [id number] [place] [address] ALP [Catalytic activity/Vol] 106 U/L Normal 34-123 [facility] Comment on above: Order Comment: Speci men Type: BLOOD SPECIMENOrdering Facility: [facility] Address: [address] [place] [address] Performed By: #### 2 4323-8 ####[facility] LABCLIA [id number] [place] [address] ALT [Catalytic activity/Vol] 14 U/L Normal 7-38 [facility] Comment on above: Order Comment: Speci men Type: BLOOD SPECIMENOrdering Facility: [facility] Address: [address] [place] [address] Performed By: #### 2 4323-8 ####[facility] LABCLIA [id number] [place] [address] Anion gap [Moles/Vol] 11 mmol/L Normal 9-18 [facility] Comment on above: Order Comment: Speci men Type: BLOOD SPECIMENOrdering Facility: [facility] Address: [address] [place] [address] Performed By: #### 2 4323-8 ####[facility] LABCLIA [id number] [place] [address] AST [Catalytic activity/Vol] 11 U/L Low 13-35 [facility] Comment on above: Order Comment: Speci men Type: BLOOD SPECIMENOrdering Facility: [facility] Address: [address] [place] [address] Performed By: #### 2 4323-8 ####[facility] LABCLIA [id number] [place] [address] Bilirubin [Mass/Vol] 0.3 mg/dL Normal 0.2-1.3 [facility] Comment on above: Order Comment: Speci men Type: BLOOD SPECIMENOrdering Facility: [facility] Address: [address] [place] [address] Performed By: #### 2 4323-8 ####[facility] LABCLIA [id number] [place] [address] Calcium [Mass/Vol] 10.2 mg/dL Normal 8.5-10.2 [facility] Comment on above: Order Comment: Speci men Type: BLOOD SPECIMENOrdering Facility: [facility] Address: [address] [place] [address] Performed By: #### 2 4323-8 ####[facility] LABCLIA [id number] [place] [address] Chloride [Moles/Vol] 98 mmol/L Normal 97-105 [facility] Comment on above: Order Comment: Speci men Type: BLOOD SPECIMENOrdering Facility: [facility] Address: [address] [place] [address] Performed By: #### 2 4323-8 ####[facility] LABCLIA [id number] [place] [address] CO2 [Moles/Vol] 31 mmol/L High 22-30 [facility] Comment on above: Order Comment: Speci men Type: BLOOD SPECIMENOrdering Facility: [facility] Address: [address] [address] Performed By: #### 2 4323-8 ####[facility] LABCLIA [id number] [place] [address] Creatinine [Mass/Vol] 1.25 mg/dL High 0.58-0.96 [facility] Comment on above: Order Comment: Speci men Type: BLOOD SPECIMENOrdering Facility: [facility] Address: [address] [address] Performed By: #### 2 4323-8 ####[facility] LABCLIA [id number] [place] [address] ESTIMATED GLOMERULAR FILTRATION RATE 44 mL/min/1.73m??? Low >=60 [facility] Comment on above: Order Comment: Speci men Type: BLOOD SPECIMENOrdering Facility: [facility] Address: [address] [place] [address] Result Comment: Ramila mated Glomerular Filtration Rate (eGFR) is calculated using the 2020 CKD-EPI creatinine equation. This equation utilizes serum creatinine, sex, and age as parameters. The creatinine assay has traceable calibration to isotope dilution-mass spectrometry. Refer to KDIGO guidelines for clinical interpretation. In patients with unstable renal function, e.g. those with acute kidney injury, the eGFR may not accurately reflect actual GFR. Performed By: #### 2 4323-8 ####[facility] LABCLIA [id number] [place] [address] Glucose [Mass/Vol] 285 mg/dL High 74-99 [facility] Comment on above: Order Comment: Dinai anyi Type: BLOOD SPECIMENOrdering Facility: [facility] Address: [address] [place] [address] Result Comment: The [place] Diabetes [employer] (ADA) provides guidance for cutoff values for fasting glucose and random glucose. The ADA defines fasting as no caloric intake for at least 8 hours. Fasting plasma glucose results between 100 to 125 mg/dL indicate increased risk for diabetes (prediabetes). Fasting plasma glucose results greater than or equal to 126 mg/dL meet the criteria for diagnosis of diabetes. In the absence of unequivocal hyperglycemia, results should be confirmed by repeat testing. In a patient with classic symptoms of hyperglycemia or hyperglycemic crisis, random plasma glucose results greater than or equal to 200 mg/dL meet the criteria for diagnosis of diabetes. Reference: Standards of Medical Care in Diabetes 2016, [place] [employer]. Diabetes Care. 2016.39(Suppl 1). Performed By: #### 2 4323-8 ####[facility] LABCLIA [id number] [place] [address] Potassium [Moles/Vol] 3.7 mmol/L Normal 3.7-5.1 [facility] Comment on above: Order Comment: Speci men Type: BLOOD SPECIMENOrdering Facility: [facility] Address: [address] [place] [address] Performed By: #### 2 4323-8 ####[facility] LABCLIA [id number] [place] [address] Protein [Mass/Vol] 7.3 g/dL Normal 6.3-8.0 [facility] Comment on above: Order Comment: Dinai men Type: BLOOD SPECIMENOrdering Facility: [facility] Address: [address] [place] [address] Performed By: #### 2 4323-8 ####[facility] LABCLIA [id number] [place] [address] Sodium [Moles/Vol] 140 mmol/L Normal 136-144 [facility] Comment on above: Order Comment: Speci men Type: BLOOD SPECIMENOrdering Facility: [facility] Address: [address] [place] [address] Performed By: #### 2 4323-8 ####[facility] LABCLIA [id number] [place] [address] Urea nitrogen [Mass/Vol] 33 mg/dL High 7-21 [facility] Comment on above: Order Comment: Speci men Type: BLOOD SPECIMENOrdering Facility: [facility] Address: [place] [address] Performed By: #### 2 4323-8 ####[facility] LABCLIA [id number] [place] [address] Consultation Noteon 02-15-20 23 Consultation Note [id number]#1.0 0CD:127 Normal [facility] Comment on above: Other Comment: TRACEY SIGALA PAGES CRR CULTURE URINEon 01-19-2023 CULTURE URINE Culture Observations : VERY LIGHT GROWTH OF MIXED GENITAL SAGE. NO POTENTIAL PATHOGENS SEEN. Normal [facility] Comment on above: Performed By: #### U RCX ####[facility] [id number] [address]Dr. Omid Bowden UA RANDOM W/MICROSCOPICon BACTERIA TRACE Abnormal NONE SEEN [facility] Comment on above: Performed By: #### H GB #### [facility] [address] [address] [address] Omid Bowden Bilirubin Ql (U) Negative Normal NEGATIVE [facility] Comment on above: Performed By: #### H GB #### [facility] [address] [address] [address] Omid Bowden CAST NONE SEEN Normal NONE SEEN [facility] Comment on above: Performed By: #### H GB #### [facility] [address] [address] [address] Omid Bowden Clarity (U) CLEAR Normal CLEAR [facility] Comment on above: Performed By: #### H GB #### [facility] [address] [address] [address] Omid Bowden Color (U) LT. YELLOW Normal YELLOW [facility] Comment on above: Performed By: #### H GB #### [facility] [address] [address] [address] Omid Bowden Crystals LM Nom (Urine sed) NONE SEEN Normal NONE SEEN [facility] Comment on above: Performed By: #### H GB #### [facility] [address] [place] [address] Dr. Omid Bowden Epithelial cells LM Ql (Urine sed) RARE Normal NONE SEEN /RARE [facility] Comment on above: Performed By: #### H GB #### [facility] [address] [place] [address] Dr. Omid Bowden Glucose Ql (U) Negative Normal NEGATIVE [facility] Comment on above: Performed By: #### H GB #### [facility] [address] [place] [address] Dr. Omid Bowden Hemoglobin Ql (U) Negative Normal NEGATIVE [facility] Comment on above: Performed By: #### H GB #### [facility] [address] [place] [address] Dr. Omid Bowden Ketones Ql (U) Negative Normal NEGATIVE [facility] Comment on above: Performed By: #### H GB #### [facility] [address] [place] [address] Dr. Omid Bowden LEUKOCYTES SMALL Abnormal NEGATIVE [facility] Comment on above: Performed By: #### H GB #### [facility] [address] [place] [address] Dr. Omid Bowden MUCOUS NONE SEEN Normal NONE SEEN [facility] Comment on above: Performed By: #### H GB #### [facility] [address] [place] [address] Dr. Omid Bowden Nitrite Ql (U) Negative Normal NEGATIVE [facility] Comment on above: Performed By: #### H GB #### [facility] [address] [place] [address] Dr. Omid Bowden pH (U) 6.0 [pH] Normal 5-9 [facility] Comment on above: Performed By: #### H GB #### [facility] [address] [place] [address] Dr. Omid Bowden RBC 0-2 Normal 0-2 [facility] Comment on above: Performed By: #### H GB #### [facility] [address] [place] [address] Dr. Omid Bowden SPEC GRAVITY <=1.005 Abnormal 1.005-<=1.0 25 [facility] Comment on above: Performed By: #### H GB #### [facility] [address] [address] [address] Omid Bowden UA PROTEIN Negative Normal NEGATIVE/ TRACE [facility] Comment on above: Performed By: #### H GB #### [facility] [address] [address] [address] Omid Bowden Urobilinogen Qn (U) 0.2 {Jose'U}/dL Normal 0.2 - 1. 0 [facility] Comment on above: Performed By: #### H GB #### [facility] [address] [address] [address] Omid Bowden WBC 0-2 Abnormal NONE SEEN [facility] Comment on above: Performed By: #### H GB #### [facility] [address] [address] [address] Omid Bowden Blood Urea Nitrogenon 2022 Urea nitrogen [Mass/Vol] 35 mg/dL High 7-25 [facility] Comment on above: Performed By: #### B UN, CREAT #### [facility] [address] [place] [address] [place] Creatinineon 11-29-2022 Creatinine [Mass/Vol] 1.37 mg/dL High 0.60-1.20 [facility] Comment on above: Performed By: #### B UN, CREAT #### [facility] [address] [place] [address] [place] Creatinine Clr Calc Pharmacy 31.71 [facility] Comment on above: Result Comment: PERF ORMED BY: [place] [address] PATHOLOGIST [employer] REPRESENTATIVE MARIYA ATKINSON M.D. Performed By: #### B UN, CREAT #### [facility] [address] [place] [address] [place] GFR/1.73 sq M.predicted MDRD (S/P/Bld) [Vol rate/Area] 39.034 mL/min/{1.73_m2} [facility] Comment on above: Performed By: #### B UN, CREAT #### [facility] [address] [id number] [facility] Creatinine [Mass/volume] in Serum or PlasmaOrdered By: Christiano Gonzales on 11-29-2022 Creatinine [Mass/Vol] 1.37 mg/dL 0.60-1.20 [facility] Laboratory - Chemistry and C hemistry - challengeOrdered By: Christiano Gonzales on 11-29-2022 GFR/1.73 sq M.predicted MDRD (S/P/Bld) [Vol rate/Area] 39.034 mL/min/{1.73_m2} [facility] No Panel InformationOrdered By: Christiano Gonzales on 11-29-2022 Pharmacy Creatinine Clearance (Chem 31.71 [facility] Urea nitrogen [Mass/volume] in Serum or PlasmaOrdered By: Christiano Gonzales on 11-29-2022 Urea nitrogen [Mass/Vol] 35 mg/dL 7 [facility] Surgical Pathologyon 023 Surgical Pathology (NOTE) -- Diagnosis -- VAGINA, 12:00, BIOPSY: -SQUAMOUS MUCOSA/EPITHELIUM WITH HIGH-GRADE SQUAMOUS INTRAEPITHELIAL LESION (VaIN 3). Judson Carlton M.D. Electronically Signed Out magalis11/28/2022 Clinical Information Pre-op Diagnosis: VAGINAL INTRAEPITHELIAL NEOPLASIA III Operative Findings: 12:00 VAGINAL tm Source of Specimen A: 12 O'CLOCK VAGINA - VAGINAL MUCOSA Gross Description HARMAN MCLEOD, 12:00 VAGINAL BX White fragments, 0.4 x 0.3 x 0.1 cm in aggregate. Entirely 1cs. tm Microscopic Description Microscopic examination performed. SURGICAL PATHOLOGY CONSULTATION Patient Name: HARMAN MCLEOD Med Rec: [id number] Path Number: [id number] [employer] [facility] ANATOMIC PATHOLOGY [address] [place] [id number] Normal [facility] Comment on above: Performed By: #### P PPVS #### [facility] [address] [place] [id number] [employer] Professor: Fidel Hylton MD Ambulatory Visit Summaryon 0 11-22-2022 Ambulatory Visit Summary HARMAN MCLEOD :1940 Visit Date:11/22/2022 Ambulatory Visit Instructions Your Care Team Attending Physician - CHELSI CARDONA, Iliana Ramirez Primary Care Physician - Orlando CARDONA, Mateus This Is Your Medications List albuterol (albuterol 0.083% Inh Crys 3 mL) amlodipine (amLODIPine 5 mg Tab) apixaban (Eliquis 5 mg oral tablet) aspirin (aspirin 81 mg Chew Tab) cholecalciferol (Vitamin D3 2000 intl units oral Tab) furosemide (Lasix 20 mg Tab) glimepiride (glimepiride 4 mg Tab) hydrALAZINE (hydrALAZINE 100 mg oral tablet) hydrochlorothiazide (hydrochlorothiazide 12.5 mg Tab) isosorbide mononitrate (isosorbide mononitrate 60 mg ER Tab) levothyroxine (levothyroxine 112 mcg (0.112 mg) Tab) liothyronine (Cytomel 5 mcg Tab) metformin (metformin 500 mg Tab) metoprolol (metoprolol 200 mg ER Tab) omega-3 polyunsaturated fatty acids (Fish Oil 1000 mg oral capsule) ondansetron (ondansetron 4 mg Dis Tab) pantoprazole (Pantoprazole [address] Tab) simvastatin (simvastatin 20 mg Tab) sucralfate (Carafate 1 gram Tab) Procedures Performed Lumpectomy of right breast (10/19/2022), Appendectomy, Colposcopy, Cryocautery of cervix, Insertion of arterial stent, Insertion of stent in femoral vein, Repair of aneurysm, Ultrasonography guided biopsy of right breast, Urinary bladder reconstruction, Vaginal total hysterectomy. Medications What How Much When Instructions Unchanged albuterol (albuterol 0.083% Inh Crys 3 mL) 3 Milliliter Nebulized inhalation (aerosol) 4 times a day Unchanged amlodipine (amLODIPine 5 mg Tab) 1 Tablets By Mouth Every day Unchanged apixaban (Eliquis 5 mg oral tablet) 1 Tablets By Mouth 2 times a day Unchanged aspirin (aspirin 81 mg Chew Tab) 1 Tablets Chewed Every day Unchanged cholecalciferol (Vitamin D3 2000 intl units oral Tab) 50 Microgram By Mouth Every day Unchanged furosemide (Lasix 20 mg Tab) 1 Tablets By Mouth 2 times a day Unchanged glimepiride (glimepiride 4 mg Tab) 1 Tablets By Mouth 2 times a day Unchanged hydrALAZINE (hydrALAZINE 100 mg oral tablet) 1 Tablets By Mouth 3 times a day Unchanged hydrochlorothiazide (hydrochlorothiazide 12.5 mg Tab) 1 Tablets By Mouth 2 times a day Unchanged isosorbide mononitrate (isosorbide mononitrate 60 mg ER Tab) 1 Tablets By Mouth Once a day (in the morning) Unchanged levothyroxine (levothyroxine 112 mcg (0.112 mg) Tab) 1 Tablets By Mouth Every day Unchanged liothyronine (Cytomel 5 mcg Tab) 2 Tablets By Mouth Every day Unchanged metformin (metformin 500 mg Tab) 1 Tablets By Mouth 2 times a day Unchanged metoprolol (metoprolol 200 mg ER Tab) 1 Tablets By Mouth Every day Unchanged omega-3 polyunsaturated fatty acids (Fish Oil 1000 mg oral capsule) 2 Capsules By Mouth Every day Unchanged ondansetron (ondansetron 4 mg Dis Tab) 1 Tablets By Mouth 4 times a day Unchanged pantoprazole (Pantoprazole [address] Tab) 1 Tablets By Mouth Every day Unchanged simvastatin (simvastatin 20 mg Tab) 1 Tablets By Mouth Once a day (at bedtime) Unchanged sucralfate (Carafate 1 gram Tab) 1 Tablets By Mouth Four times a day (before meals and at bedtime) Allergies cefdinir (Vomiting) ciprofloxacin (Urticaria) oxyCODONE (Itching) Problems Ongoing - Any problem that you are currently receiving treatment for. Acute combined systolic (congestive) and diastolic (congestive) heart failure Atherosclerosis of samish artery of extremity BMI 36.0-36.9,adult Brain stem vertigo Breast cancer of upper-outer quadrant of right female breast CAD (coronary artery disease) Carcinoma in situ of vagina Cervical disc disease Chronic anticoagulation Chronic diastolic heart failure Chronic low back pain Chronic obstructive pulmonary disease Diabetes Diverticulosis Edema GERD (gastroesophageal reflux disease) HTN (hypertension) Hypertriglyceridemia Hypothyroidism Invasive ductal carcinoma of right breast Osteopenia PAF (paroxysmal atrial fibrillation) Pseudoaneurysm of femoral artery Pure hypercholesterolemia PVD (peripheral vascular disease) Rectal bleeding Stage 2 chronic kidney disease Normal [facility] General Surgery Office/Clini c Noteon 11-22-2022 General Surgery Office/Clinic Note Chief Complaint post operative follow up HPI Staff 34 day post operative follow up post right breast lumpectomy with SN biopsy. Denies pain, no use of pain medication. Reports scant bloody drainage. Wearing supportive bra. History of Present Illness 5 weeks s/p right breast lumpectomy and sentinel lymph node biopsy; doing well, still with intermittent bloody drainage from lateral aspect of incision, no pain; no fevers. seen by Oncology last week; only plan on hormonal therapy. Review of Systems ROS - Provider Constitutional: no fever, no sweats, no weight loss. Eyes: no glasses, no blurred vision, no visual loss. ENMT: no dentures, no hoarseness, no swallowing difficulties, no hearing loss, no ear infection(s), no nose bleeds. Cardiovascular: normal blood pressure, no chest pain, regular heartbeat, no heart murmur. Respiratory: no shortness of breath, no cough, no asthma, no wheezing. Gastrointestinal: no nausea, no vomiting, no diarrhea, no constipation, no blood in stool, no change in bowel habits, no abdominal pain, no hepatitis. Genitourinary: no kidney stones, no urine infection, no dysuria. Musculoskeletal: no pain, no weakness. Skin: no changing moles, no rash, no skin lumps. Neurologic: no seizures, no epilepsy, no headache. Psychiatric: no emotional or psychiatric problem. Heme/Lymph: no bleeding problems, no anemia, no blood clots, no transfusions. Allergy/Immunologic: no swollen lymph nodes/glands, no IV drug abuse. Other: Additional ROS info: Except as noted in the above Review of Systems and in the History of Present Illness, all other systems have been reviewed and are negative or noncontributory. Physical Exam skin: lateral aspect of right breast incision with hard glue, and superficial skin slough underneath; no drainage or purulence, no cellulitis; axillary incision well-healed. Assessment/Plan 1. Breast cancer of upper-outer quadrant of right female breast (C50.411: 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 female breast) doing well, glue removed from incision; keep area clean and dry; clean with rubbing alcohol bid until scab forms; call with problems/questions. Follow-up With When Contact Information CHELSI CARDONA, Iliana Ramirez, DANIEL Only if needed [address] [place] [address]- Additional Instructions: Problem List/Past Medical History Ongoing Acute combined systolic (congestive) and diastolic (congestive) heart failure Atherosclerosis of samish artery of extremity BMI 36.0-36.9,adult Brain stem vertigo Breast cancer of upper-outer quadrant of right female breast CAD (coronary artery disease) Carcinoma in situ of vagina Cervical disc disease Chronic anticoagulation Chronic diastolic heart failure Chronic low back pain Chronic obstructive pulmonary disease Diabetes Diverticulosis Edema GERD (gastroesophageal reflux disease) HTN (hypertension) Hypertriglyceridemia Hypothyroidism Invasive ductal carcinoma of right breast Osteopenia PAF (paroxysmal atrial fibrillation) Pseudoaneurysm of femoral artery Pure hypercholesterolemia PVD (peripheral vascular disease) Rectal bleeding Stage 2 chronic kidney disease Historical No qualifying data Procedure/Surgical History Lumpectomy of right breast (10/19/2022), Appendectomy, Colposcopy, Cryocautery of cervix, Insertion of arterial stent, Insertion of stent in femoral vein, Repair of aneurysm, Ultrasonography guided biopsy of right breast, Urinary bladder reconstruction, Vaginal total hysterectomy. Medications albuterol 0.083% Inh Crys 3 mL, 2.5 mg= 3 mL, NEB, QID amLODIPine 5 mg Tab, 5 mg= 1 tab(s), Oral, Daily aspirin 81 mg Chew Tab, 81 mg= 1 tab(s), Chewed, Daily Carafate 1 gram Tab, 1 gm= 1 tab(s), Oral, QIDACHS Cytomel 5 mcg Tab, 10 mcg= 2 tab(s), Oral, Daily Eliquis 5 mg oral tablet, 5 mg= 1 tab(s), Oral, BID Fish Oil 1000 mg oral capsule, 2000 mg= 2 cap(s), Oral, Daily glimepiride 4 mg Tab, 4 mg= 1 tab(s), Oral, BID hydrALAZINE 100 mg oral tablet, 100 mg= 1 tab(s), Oral, TID hydrochlorothiazide 12.5 mg Tab, 12.5 mg= 1 tab(s), Oral, BID isosorbide mononitrate 60 mg ER Tab, 60 mg= 1 tab(s), Oral, qAM Lasix 20 mg Tab, 20 mg= 1 tab(s), Oral, BID levothyroxine 112 mcg (0.112 mg) Tab, 112 mcg= 1 tab(s), Oral, Daily metformin 500 mg Tab, 500 mg= 1 tab(s), Oral, BID metoprolol 200 mg ER Tab, 200 mg= 1 tab(s), Oral, Daily ondansetron 4 mg Dis Tab, 4 mg= 1 tab(s), Oral, QID Pantoprazole [address] Tab, 40 mg= 1 tab(s), Oral, Daily simvastatin 20 mg Tab, 20 mg= 1 tab(s), Oral, Once a day (at bedtime) Vitamin D3 2000 intl units oral Tab, 50 mcg, Oral, Daily Allergies cefdinir (Vomiting) ciprofloxacin (Urticaria) oxyCODONE (Itching) Social History Alcohol - Denies Alcohol Use, 09/09/2022 Substance Abuse - Denies Substance Abuse, 09/09/2022 Tobacco Former smoker, quit more than 30 days ago Tobacco Use:. Never Smokeless Tobacco Use:. Cigarettes, 0.5 per d (more content not included)... Normal [facility] Comment on above: Result Comment: Elec tronically Signed By: CHELSI CARDONA, Iliana Alvarez\Date and Time Signed: 11/22/22 15:17 EDT Cov[facility]19 [facility]on SARS-CoV-2 (COVID-19) RNA MARII+probe Ql (Unsp spec) Not detected Normal NOT DETECTED [facility] Comment on above: Result Comment: When diagnostic testing is negative, the possibility of a false negative should be considered in the context of a patient's recent exposures and the presence of clinical signs and symptoms consistent with SARS-CoV-2. This test is not yet approved or cleared by the [place] FDA. When there are no FDA-approved or cleared tests available, and other criteria are met, FDA can make tests available under an emergency access mechanism called an Emergency Use Authorization (EUA). The EUA for this test is supported by the [place] of Health and Human Service's declaration that circumstances exist to justify the emergency use of in vitro diagnostics for the detection and/or diagnosis of the virus that causes COVID-19. This EUA will remain in effect for the duration of the COVID-19 declaration justifying emergency of IVDs, unless it is terminated or revoked by the FDA (after which the test may no longer be used). Performed By: #### H GB #### [facility] [address] [place], [place] [address] Dr. Omid Bowdne INFLUENZA A AND B AGon 11-16 [facility] SEE BELOW Normal [facility] Comment on above: Result Comment: Nega tive for Flu A protein angiten. Infection due to Flu A cannot be ruled out. Flu A angiten in the sample may be below the detection limit of the test. Performed By: #### I NFLUAB ####[facility] [id number] [place] [address]Dr. Omid Bowden [facility] SEE BELOW Normal [facility] Comment on above: Result Comment: Nega tive for Flu B protein antigen. Infection due to Flu B cannot be ruled out. Flu B antigen in the sample may be below the detection limit of the test. Performed By: #### I NFLUAB ####[facility] [id number] [place] [address]Dr. Omid Bowden INFLUENZA A AG Negative Normal NEGATIVE SEE COMMENT [facility] Comment on above: Performed By: #### I NFLUAB ####[facility] [id number] [place] [address]Dr. Omid Bowden INFLUENZA B AG Negative Normal NEGATIVE SEE COMMENT [facility] Comment on above: Performed By: #### I NFLUAB ####[facility] [id number] [place] [address]DrMedardo Bowden CNOVSPon 11-09-2022 CNOVSP Visit (SP) Office ([place]) HARMAN MCLEOD ([id number]) 1940 F Date Time Provider Department 11/09/22 2:00 PM WALLACE STONE During your visit today, we recorded the following information about you: Temperature Pulse Respiration Blood pressure 97.1 degrees 66/minute 18/minute 142/72 Weight Height 84.7 kg 1.549 m Wallace Stone MD 11/09/2022 2:24 PM Signed PATIENT NAME: Harman Mcleod CLINIC NO.: [id number] ATTENDING PHYSICIAN: Wallace Stone MD DATE OF SERVICE: November 09, [address] Banks referring provider defined for this encounter. here is an update on a follow up visit on female Harman Mcleod at the clinic 11/09/2022 Diagnosis: T1b, N0, M0- R breast, Tumor 9 mm, Grade 2, Margins negative, Negative LVI, 2 SNL negative, ER and HI >95% positive, Her2 IHC 1+ Treatment History: R Breast Lumpectomy and SNL 10/19/2022 HPI: Harman Mcleod is a 82 year old year old female here for follow up. Doing well after surgery but has had swelling in the R leg and some pain. She has had a stent in that leg before. She did have an US of the leg which was negative for a clot. She tolerated the procedure well and also denies any abdominal pains and good range of motion in her arm as well. 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 Social History Tobacco Use Smoking status: Former Packs/day: 0.50 Years: 50.00 Pack years: 25.00 Types: Cigarettes Quit date: 06/28/2018 Years since quittin.3 Passive exposure: Past Smokeless tobacco: Never Vaping Use Vaping Use: Never used Substance Use Topics Alcohol use: No Drug use: No FAMILY HISTORY Problem Relation Age of Onset Hypertension Mother Hyperlipidemia Mother other (non-insulin dependent diabetes mellitus) Mother other (heart disease) Mother other (cerebrovascular accident hypothyroid) Mother Cancer Father Arthritis Father Hypertension Father Asthma Father other (heart disease) Father Breast Cancer Sister Breast Cancer Other Past medical, social and family history reviewed without any changes. REVIEW OF SYSTEMS GENERAL: No weight loss, malaise or fevers. No night sweats. HEENT: Negative for headaches, No changes in hearing or vision, no nose bleeds or other nasal problems. RESPIRATORY: Negative for cough, wheezing and shortness of breath CARDIOVASCULAR: Negative for chest pain, leg swelling and palpitations GI: Negative for abdominal discomfort, blood in stools or black stools and change in bowel habits : Negative for dysuria, frequency and incontinence MUSCULOSKELETAL: Negative for joint pain or swelling, back pain, and muscle pain. SKIN: Negative for lesions, rash, and itching. HEMATOLOGY/LYMPHOLOGY Negative for prolonged bleeding, bruising easily, and swollen nodes. NEURO: Negative for numbness or tingling of hands/feet. No weakness. PHYSICAL EXAMINATION: BP 142/72 Pulse 66 Temp (Src) 97.1 (Temporal) Resp 18 Ht 5' .984 (1.55m) Wt 186 lb 12.8 oz (84.7kg) SpO2 100% BMI 35.31 kg/(m2). Wt 84.7 kg (186 lb 12.8 oz) BMI 35.31 kg/m2 Last 3 Encounter Wt Readings: Date: Wt: 11/09/2022 84.7 kg (186 lb 12.8 oz) 09/22/2022 84.8 kg (187 lb) 05/29/2020 90.4 kg (199 lb 6.4 oz) General appearance:ECOG PERFORMANCE STATUS: 1- Restricted in physically strenuous activity. Carries out light duty. Patient in NAD. Skin: Skin color, texture, turgor normal. No rashes or lesions. Eyes: Anicteric sclera. Pupils are equally round and reactive to light. Extraocular movements are intact. Lymph Nodes: No cervical, supraclavicular, axillary or inguinal adenopathy. Oropharynx: Lips, mucosa, and tongue normal. Back: No pain to percussion. Negative SLR test Lungs clear to auscultation, No wheezing or rhonchi Heart: RRR without murmur, gallop, or rubs. Abdomen soft, non-tender. No masses, organomegaly Extremities: No deformities. No edema Neuro: Gait and speech normal. Reflexes normal and symmetric. Muscular strength intact. Sensation grossly intact. Rectal: Deferred : Deferred LABS: Gluc (more content not included)... Normal [facility] CNPNon 11-09-2022 CNPN Telephone (NCCAP) HARMAN MCLEOD ([id number]) 1940 F Date Time Provider Department 11/09/22 WALLACE STONE [facility] During your visit today, we recorded the following information about you: Carlos Brooks 11/09/2022 2:45 PM Signed Vascular Consult [facility] [place] Previous patient of Dr. Mendez 3 years or more. Janeth/Dudley: Can you please refer patient and follow up? Thanks! Carlos Pereira Pss 11/10/2022 8:46 AM Signed Janeth: Information ready for you. Adriana Pereira Pss Kira Ko [facility] 11/10/2022 9:38 AM Signed Records faxed. Adriana Pereira Pss 11/16/2022 8:42 AM Signed Called Vascular office spoke with Jessy. They have received this referral and have patient scheduled with Dr Gonzales on 11/23 @ 10:00. Adriana Pereira Pss Allergies As of Date: 11/09/2022 Noted Allergy Reaction CEFDINIR 09/13/2022 14 - Other: See Comments 11 - Vomiting CIPROFLOXACIN 09/29/2017 14 - Other: See Comments Comments: tendon issues OXYCODONE-ACETAMINOPHE N 03/31/2013 5 - Intolerance 8 - GI Upset TRAMADOL 11/09/2022 1 - Mental Status Change Date Reviewed: 11/09/2022 Reviewed by: Jeaneth Perdomo - Fully Assessed Reason for Visit: Referral Information [[id number]] Cmt: Vascular Consult Prescriptions as of 11/16/2022 - meloxicam (MOBIC) 15 mg tablet Take 15 mg by mouth once daily. - anastrozole (ARIMIDEX) 1 mg tablet Take 1 tablet by mouth once daily. - potassium chloride 20 mEq TbER TAKE 1 TABLET BY MOUTH THREE TIMES A DAY DO NOT CRUSH, CHEW, OR SPLIT. - levoFLOXacin (LEVAQUIN) 750 mg tablet - sucralfate (CARAFATE) 1 gram tablet Take 1 g by mouth four times daily. - liothyronine (CYTOMEL) 5 mcg tablet Take 5 mcg by mouth once daily. - ondansetron (ZOFRAN) 4 mg tablet Take 4 mg by mouth every 8 hours as needed for nausea/vomiting. - pantoprazole DR (PROTONIX) 40 mg tablet Take 40 mg by mouth once daily. - acetaminophen (TYLENOL EXTRA STRENGTH) 500 mg tablet Take 2 tablets by mouth every 6 hours as needed for Pain. - docusate sodium (COLACE) 100 mg capsule Take 2 capsules by mouth at bedtime as needed (opioid-induced constipation). - furosemide (LASIX) 20 mg tablet Take 20 mg by mouth twice daily. - cetirizine (ZYRTEC) 10 mg tablet Take 10 mg by mouth twice daily. - citalopram (CELEXA) 20 mg tablet - apixaban (ELIQUIS) 2.5 mg tab(s) Take 5 mg by mouth twice daily. - hydrALAZINE (APRESOLINE) 100 mg tablet Take 100 mg by mouth three times daily. - hydroCHLOROthiazide (HYDRODIURIL, ESIDRIX) 12.5 mg tablet Take 12.5 mg by mouth once daily. - metoprolol succinate ER (TOPROL XL) 200 mg 24 hr tablet metoprolol succinate ER 200 mg tablet,extended release 24 hr - DULERA 100-5 mcg/actuation inhaler - glimepiride (AMARYL) 4 mg tablet Take 4 mg by mouth twice daily with meals. - BREO ELLIPTA 100-25 mcg/dose inhaler Inhale 1 Inhalation as instructed once daily. - aspirin, enteric coated (ASPIRIN, ENTERIC COATED) 81 mg EC tablet Take 81 mg by mouth once daily. - levothyroxine (SYNTHROID) 112 mcg tablet Take 125 mcg by mouth once daily. - amLODIPine (NORVASC) 5 mg tablet Take by mouth once daily. - metoprolol tartrate, short acting, (LOPRESSOR) 100 mg tablet Take 100 mg by mouth twice daily. Patient takes 1/2 tab 2x a day - metFORMIN (GLUCOPHAGE) 500 mg tablet Take 500 mg by mouth twice daily with meals. - albuterol (PROVENTIL) 2.5 mg /3 mL (0.083 %) nebulizer solution Use 2.5 mg via nebulizer as needed. - ALBUTEROL SULFATE (VENTOLIN INHALATION) Inhale 2 Puffs as instructed as needed. - simvastatin (ZOCOR) 20 mg tablet Take 40 mg by mouth daily at bedtime. Cut in half - [id number]-EPA-Fish Oil 1,000 mg (120 mg-180 mg) cap Take 2 g by mouth twice daily. - isosorbide mononitrate ER (IMDUR) 60 mg 24 hr tablet Take 60 mg by mouth twice daily. Problem List As Of Date 11/09/2022 Noted Resolved Hypertension [I10] DM type 2 (diabetes mellitus, type 2) ([facility]) [E1* Essential hypertension [I10] 01/16/2017 Type 2 diabetes mellitus without complication, *01/16/2017 Hypothyroidism [E03.9] 01/16/2017 Dyslipidemia [E78.5] 01/16/2017 Atherosclerosis of samish coronary artery of na*01/16/2017 S/P coronary artery stent placement [Z95.5] 01/16/2017 Moderate smoker (20 or less per day) [F17.210] 01/16/2017 PAD (peripheral artery disease) ([facility]) [I73.9] 01/16/2017 Vaginal lesion [N89.8] 01/20/2017 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 Encounter Status:Closed by CARLOS BROOKS on 11/16/22 Normal [facility] Ambulatory Visit Summaryon 0 11-08-2022 Ambulatory Visit Summary MCLEOD HARMAN L :1940 Visit Date:11/08/2022 Ambulatory Visit Instructions Your Care Team Attending Physician - CHELSI CARDONA, Iliana Ramirez Primary Care Physician - Orlando CARDONA, Mateus This Is Your Medications List albuterol (albuterol 0.083% Inh Crys 3 mL) amlodipine (amLODIPine 5 mg Tab) apixaban (Eliquis 5 mg oral tablet) aspirin (aspirin 81 mg Chew Tab) cholecalciferol (Vitamin D3 2000 intl units oral Tab) furosemide (Lasix 20 mg Tab) glimepiride (glimepiride 4 mg Tab) hydrALAZINE (hydrALAZINE 100 mg oral tablet) hydrochlorothiazide (hydrochlorothiazide 12.5 mg Tab) isosorbide mononitrate (isosorbide mononitrate 60 mg ER Tab) levothyroxine (levothyroxine 112 mcg (0.112 mg) Tab) liothyronine (Cytomel 5 mcg Tab) metformin (metformin 500 mg Tab) metoprolol (metoprolol 200 mg ER Tab) omega-3 polyunsaturated fatty acids (Fish Oil 1000 mg oral capsule) ondansetron (ondansetron 4 mg Dis Tab) pantoprazole (Pantoprazole [address] Tab) simvastatin (simvastatin 20 mg Tab) sucralfate (Carafate 1 gram Tab) Procedures Performed Lumpectomy of right breast (10/19/2022), Appendectomy, Colposcopy, Cryocautery of cervix, Insertion of arterial stent, Insertion of stent in femoral vein, Repair of aneurysm, Ultrasonography guided biopsy of right breast, Urinary bladder reconstruction, Vaginal total hysterectomy. Medications What How Much When Instructions Unchanged albuterol (albuterol 0.083% Inh Crys 3 mL) 3 Milliliter Nebulized inhalation (aerosol) 4 times a day Unchanged amlodipine (amLODIPine 5 mg Tab) 1 Tablets By Mouth Every day Unchanged apixaban (Eliquis 5 mg oral tablet) 1 Tablets By Mouth 2 times a day Unchanged aspirin (aspirin 81 mg Chew Tab) 1 Tablets Chewed Every day Unchanged cholecalciferol (Vitamin D3 2000 intl units oral Tab) 50 Microgram By Mouth Every day Unchanged furosemide (Lasix 20 mg Tab) 1 Tablets By Mouth 2 times a day Unchanged glimepiride (glimepiride 4 mg Tab) 1 Tablets By Mouth 2 times a day Unchanged hydrALAZINE (hydrALAZINE 100 mg oral tablet) 1 Tablets By Mouth 3 times a day Unchanged hydrochlorothiazide (hydrochlorothiazide 12.5 mg Tab) 1 Tablets By Mouth 2 times a day Unchanged isosorbide mononitrate (isosorbide mononitrate 60 mg ER Tab) 1 Tablets By Mouth Once a day (in the morning) Unchanged levothyroxine (levothyroxine 112 mcg (0.112 mg) Tab) 1 Tablets By Mouth Every day Unchanged liothyronine (Cytomel 5 mcg Tab) 2 Tablets By Mouth Every day Unchanged metformin (metformin 500 mg Tab) 1 Tablets By Mouth 2 times a day Unchanged metoprolol (metoprolol 200 mg ER Tab) 1 Tablets By Mouth Every day Unchanged omega-3 polyunsaturated fatty acids (Fish Oil 1000 mg oral capsule) 2 Capsules By Mouth Every day Unchanged ondansetron (ondansetron 4 mg Dis Tab) 1 Tablets By Mouth 4 times a day Unchanged pantoprazole (Pantoprazole [address] Tab) 1 Tablets By Mouth Every day Unchanged simvastatin (simvastatin 20 mg Tab) 1 Tablets By Mouth Once a day (at bedtime) Unchanged sucralfate (Carafate 1 gram Tab) 1 Tablets By Mouth Four times a day (before meals and at bedtime) Allergies cefdinir (Vomiting) ciprofloxacin (Urticaria) oxyCODONE (Itching) Problems Ongoing - Any problem that you are currently receiving treatment for. Acute combined systolic (congestive) and diastolic (congestive) heart failure Atherosclerosis of samish artery of extremity BMI 36.0-36.9,adult Brain stem vertigo Breast cancer of upper-outer quadrant of right female breast CAD (coronary artery disease) Carcinoma in situ of vagina Cervical disc disease Chronic anticoagulation Chronic diastolic heart failure Chronic low back pain Chronic obstructive pulmonary disease Diabetes Diverticulosis Edema GERD (gastroesophageal reflux disease) HTN (hypertension) Hypertriglyceridemia Hypothyroidism Invasive ductal carcinoma of right breast Osteopenia PAF (paroxysmal atrial fibrillation) Pseudoaneurysm of femoral artery Pure hypercholesterolemia PVD (peripheral vascular disease) Rectal bleeding Stage 2 chronic kidney disease Normal [facility] General Surgery Office/Clini c Noteon 11-08-2022 General Surgery Office/Clinic Note Chief Complaint post operative follow up HPI Staff 20 day post operative follow up post right partial lumpectomy with sentinel node biopsy. Minimal discomfort. Scant drainage on pad she's wearing in bra to prevent rubbing on incision. History of Present Illness 3 weeks s/p right breast lumpectomy and sentinel lymph node biopsy for T1bN0 invasive ductal carcinoma and DCIS; doing well, mild soreness; small amount of serosanguinous drainage; no fevers; wearing bra all the time; no pain meds; has f/u Oncology/Radiation Oncology appointments tomorrow. Review of Systems ROS - Provider Constitutional: no fever, no sweats, no weight loss. Eyes: no glasses, no blurred vision, no visual loss. ENMT: no dentures, no hoarseness, no swallowing difficulties, no hearing loss, no ear infection(s), no nose bleeds. Cardiovascular: normal blood pressure, no chest pain, regular heartbeat, no heart murmur. Respiratory: no shortness of breath, no cough, no asthma, no wheezing. Gastrointestinal: no nausea, no vomiting, no diarrhea, no constipation, no blood in stool, no change in bowel habits, no abdominal pain, no hepatitis. Genitourinary: no kidney stones, no urine infection, no dysuria. Musculoskeletal: no pain, no weakness. Skin: no changing moles, no rash, no skin lumps. Neurologic: no seizures, no epilepsy, no headache. Psychiatric: no emotional or psychiatric problem. Heme/Lymph: no bleeding problems, no anemia, no blood clots, no transfusions. Allergy/Immunologic: no swollen lymph nodes/glands, no IV drug abuse. Other: Additional ROS info: Except as noted in the above Review of Systems and in the History of Present Illness, all other systems have been reviewed and are negative or noncontributory. Physical Exam skin: incisions healing well, no erythema, no drainage currently; small area lateral aspect of breast incision with glue off, no open areas, mild edema of breast. Assessment/Plan 1. Breast cancer of upper-outer quadrant of right female breast (C50.411: 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 female breast) doing well, continue to wear bra, even at night for 1 more week; follow up in 2 weeks, call sooner if problems/questions. 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 of samish artery of extremity BMI 36.0-36.9,adult Brain stem vertigo Breast cancer of upper-outer quadrant of right female breast CAD (coronary artery disease) Carcinoma in situ of vagina Cervical disc disease Chronic anticoagulation Chronic diastolic heart failure Chronic low back pain Chronic obstructive pulmonary disease Diabetes Diverticulosis Edema GERD (gastroesophageal reflux disease) HTN (hypertension) Hypertriglyceridemia Hypothyroidism Invasive ductal carcinoma of right breast Osteopenia PAF (paroxysmal atrial fibrillation) Pseudoaneurysm of femoral artery Pure hypercholesterolemia PVD (peripheral vascular disease) Rectal bleeding Stage 2 chronic kidney disease Historical No qualifying data Procedure/Surgical History Lumpectomy of right breast (10/19/2022), Appendectomy, Colposcopy, Cryocautery of cervix, Insertion of arterial stent, Insertion of stent in femoral vein, Repair of aneurysm, Ultrasonography guided biopsy of right breast, Urinary bladder reconstruction, Vaginal total hysterectomy. Medications albuterol 0.083% Inh Crys 3 mL, 2.5 mg= 3 mL, NEB, QID amLODIPine 5 mg Tab, 5 mg= 1 tab(s), Oral, Daily aspirin 81 mg Chew Tab, 81 mg= 1 tab(s), Chewed, Daily Carafate 1 gram Tab, 1 gm= 1 tab(s), Oral, QIDACHS Cytomel 5 mcg Tab, 10 mcg= 2 tab(s), Oral, Daily Eliquis 5 mg oral tablet, 5 mg= 1 tab(s), Oral, BID Fish Oil 1000 mg oral capsule, 2000 mg= 2 cap(s), Oral, Daily glimepiride 4 mg Tab, 4 mg= 1 tab(s), Oral, BID hydrALAZINE 100 mg oral tablet, 100 mg= 1 tab(s), Oral, TID hydrochlorothiazide 12.5 mg Tab, 12.5 mg= 1 tab(s), Oral, BID isosorbide mononitrate 60 mg ER Tab, 60 mg= 1 tab(s), Oral, qAM Lasix 20 mg Tab, 20 mg= 1 tab(s), Oral, BID levothyroxine 112 mcg (0.112 mg) Tab, 112 mcg= 1 tab(s), Oral, Daily metformin 500 mg Tab, 500 mg= 1 tab(s), Oral, BID metoprolol 200 mg ER Tab, 200 mg= 1 tab(s), Oral, Daily ondansetron 4 mg Dis Tab, 4 mg= 1 tab(s), Oral, QID Pantoprazole [address] Tab, 40 mg= 1 tab(s), Oral, Daily simvastatin 20 mg Tab, 20 mg= 1 tab(s), Oral, Once a day (at bedtime) Vitamin D3 2000 intl units oral Tab, 50 mcg, Oral, Daily Allergies cefdinir (Vomiting) ciprofloxacin (Urticaria) oxyCODONE (Itching) Social History Alcohol - Denies Alcohol Use, 09/09/2022 Substance Abuse - Denies Substance Abuse, 09/09/2022 Tobacco Former smoker, quit more than 30 days ago Tobacco Use:. Never Smokeless Tobacco Use:. Cigarettes, 0.5 per day. Started age 20.0 Years. Stopped age 78 Years., 09/09/2022 Family History Tran (more content not included)... Normal [facility] Comment on above: Result Comment: Elec tronically Signed By: CHELSI CARDONA, Iliana Ramirez\.br\Date and Time Signed: 11/08/22 14:22 EST Ambulatory Visit Summaryon 0 11-04-2022 Ambulatory Visit Summary HARMAN MCLEOD :1940 Visit Date:11/04/2022 Ambulatory Visit Instructions Your Care Team Attending Physician - CHELSI CARDONA, Iliana Ramirez Primary Care Physician - Mateus Perry MD This Is Your Medications List albuterol (albuterol 0.083% Inh Crys 3 mL) amlodipine (amLODIPine 5 mg Tab) apixaban (Eliquis 5 mg oral tablet) aspirin (aspirin 81 mg Chew Tab) cholecalciferol (Vitamin D3 2000 intl units oral Tab) furosemide (Lasix 20 mg Tab) glimepiride (glimepiride 4 mg Tab) hydrALAZINE (hydrALAZINE 100 mg oral tablet) hydrochlorothiazide (hydrochlorothiazide 12.5 mg Tab) isosorbide mononitrate (isosorbide mononitrate 60 mg ER Tab) levothyroxine (levothyroxine 112 mcg (0.112 mg) Tab) liothyronine (Cytomel 5 mcg Tab) metformin (metformin 500 mg Tab) metoprolol (metoprolol 200 mg ER Tab) omega-3 polyunsaturated fatty acids (Fish Oil 1000 mg oral capsule) ondansetron (ondansetron 4 mg Dis Tab) pantoprazole (Pantoprazole [address] Tab) simvastatin (simvastatin 20 mg Tab) sucralfate (Carafate 1 gram Tab) Procedures Performed Lumpectomy of right breast (10/19/2022), Appendectomy, Colposcopy, Cryocautery of cervix, Insertion of arterial stent, Insertion of stent in femoral vein, Repair of aneurysm, Ultrasonography guided biopsy of right breast, Urinary bladder reconstruction, Vaginal total hysterectomy. What to do next Scheduled Follow-Up Appointments Irma 2022 2:00 PM EST With: CHELSI CARDONA, Iliana Ramirez Where: General Surgery [facility]/Angelita Lindy [facility] General Surgery Office/Clini c Noteon 11-04-2022 General Surgery Office/Clinic Note Chief Complaint bleeding from incision HPI Staff 16 days post right partial lumpectomy with SN biopsy. Reports she noted bleeding from incision after showering today. History of Present Illness 16 days s/p right breast lumpectomy and sentinel lymph node biopsy; doing well, noticed small amount of bloody drainage after showering today; mild soreness, no fevers; patient on Eliquis. Review of Systems ROS - Provider Constitutional: no fever, no sweats, no weight loss. Eyes: no glasses, no blurred vision, no visual loss. ENMT: no dentures, no hoarseness, no swallowing difficulties, no hearing loss, no ear infection(s), no nose bleeds. Cardiovascular: normal blood pressure, no chest pain, regular heartbeat, no heart murmur. Respiratory: no shortness of breath, no cough, no asthma, no wheezing. Gastrointestinal: no nausea, no vomiting, no diarrhea, no constipation, no blood in stool, no change in bowel habits, no abdominal pain, no hepatitis. Genitourinary: no kidney stones, no urine infection, no dysuria. Musculoskeletal: mild pain, mild weakness. Skin: no changing moles, no rash, no skin lumps. Neurologic: no seizures, no epilepsy, no headache. Psychiatric: no emotional or psychiatric problem. Heme/Lymph: no bleeding problems, no anemia, no blood clots, no transfusions. Allergy/Immunologic: no swollen lymph nodes/glands, no IV drug abuse. Other: Additional ROS info: Except as noted in the above Review of Systems and in the History of Present Illness, all other systems have been reviewed and are negative or noncontributory. Physical Exam skin: incisions healing well; no erythema or drainage, no open areas to incisions; no ecchymoses; mild edema of breast. Assessment/Plan 1. Breast cancer of upper-outer quadrant of right female breast (C50.411: 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 female breast) doing well, continue to wear supportive bra, even at night; keep area clean and dry; place pad over breast incision so bra does not rub; keep f/u appointment for next week, call sooner if problems/questions. 2. Invasive ductal carcinoma of right breast (C50.911: Malignant neoplasm of unspecified site of right female breast) see # 1 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 of samish artery of extremity BMI 36.0-36.9,adult Brain stem vertigo Breast cancer of upper-outer quadrant of right female breast CAD (coronary artery disease) Carcinoma in situ of vagina Cervical disc disease Chronic anticoagulation Chronic diastolic heart failure Chronic low back pain Chronic obstructive pulmonary disease Diabetes Diverticulosis Edema GERD (gastroesophageal reflux disease) HTN (hypertension) Hypertriglyceridemia Hypothyroidism Invasive ductal carcinoma of right breast Osteopenia PAF (paroxysmal atrial fibrillation) Pseudoaneurysm of femoral artery Pure hypercholesterolemia PVD (peripheral vascular disease) Rectal bleeding Stage 2 chronic kidney disease Historical No qualifying data Procedure/Surgical History Lumpectomy of right breast (10/19/2022), Appendectomy, Colposcopy, Cryocautery of cervix, Insertion of arterial stent, Insertion of stent in femoral vein, Repair of aneurysm, Ultrasonography guided biopsy of right breast, Urinary bladder reconstruction, Vaginal total hysterectomy. Medications albuterol 0.083% Inh Cyrs 3 mL, 2.5 mg= 3 mL, NEB, QID amLODIPine 5 mg Tab, 5 mg= 1 tab(s), Oral, Daily aspirin 81 mg Chew Tab, 81 mg= 1 tab(s), Chewed, Daily Carafate 1 gram Tab, 1 gm= 1 tab(s), Oral, QIDACHS Cytomel 5 mcg Tab, 10 mcg= 2 tab(s), Oral, Daily Eliquis 5 mg oral tablet, 5 mg= 1 tab(s), Oral, BID Fish Oil 1000 mg oral capsule, 2000 mg= 2 cap(s), Oral, Daily glimepiride 4 mg Tab, 4 mg= 1 tab(s), Oral, BID hydrALAZINE 100 mg oral tablet, 100 mg= 1 tab(s), Oral, TID hydrochlorothiazide 12.5 mg Tab, 12.5 mg= 1 tab(s), Oral, BID isosorbide mononitrate 60 mg ER Tab, 60 mg= 1 tab(s), Oral, qAM Lasix 20 mg Tab, 20 mg= 1 tab(s), Oral, BID levothyroxine 112 mcg (0.112 mg) Tab, 112 mcg= 1 tab(s), Oral, Daily metformin 500 mg Tab, 500 mg= 1 tab(s), Oral, BID metoprolol 200 mg ER Tab, 200 mg= 1 tab(s), Oral, Daily ondansetron 4 mg Dis Tab, 4 mg= 1 tab(s), Oral, QID Pantoprazole [address] Tab, 40 mg= 1 tab(s), Oral, Daily simvastatin 20 mg Tab, 20 mg= 1 tab(s), Oral, Once a day (at bedtime) Vitamin D3 2000 intl units oral Tab, 50 mcg, Oral, Daily Allergies cefdinir (Vomiting) ciprofloxacin (Urticaria) oxyCODONE (Itching) Social History Alcohol - Denies Alcohol Use, 09/09/2022 Substance Abuse - Denies Substance Abuse, 09/09/2022 Tobacco Former smoker, quit more than 30 days ago Tobacco Use:. Never Smokeless Tobacco Use:. Cigarettes, 0.5 per day. Started age 20.0 Years. Stopped age 78 Years., 09/09/2022 Family Histor (more content not included)... Normal [facility] Comment on above: Result Comment: Elec tronically Signed By: CHELSI CARDONA, Iliana Alvarez\Date and Time Signed: 11/04/22 14:35 EST US HARRIET DOP LEG BILon 023 US HARRIET DOP LEG DAVID EXAM: US HARRIET DOP LEG DAVID HISTORY: Edema and swelling of both legs for the past 3 days. COMPARISON: Ultrasound right side 03/14/2021 TECHNIQUE: Multiple sonographic images of the deep veins of both lower extremities were obtained, supplemented with Doppler. FINDINGS: The deep veins of both lower extremities are fairly well visualized from the groin to the mid calf. No filling defect is identified in either side to indicate a thrombus. There is normal compression augmentation to flow throughout. Flow is seen in the visualized portions of the saphenous veins. IMPRESSION: There is no direct or indirect evidence of deep vein thrombosis in the lower extremities at this time. Similar findings were noted in the prior study from 2020. Electronically authenticated by: MIGUELITO TELLEZ Date: 2022-11-02 17:17 Normal [facility] Pathology Noteon 10-26-2022 Pathology Note [id number] 0CD:127 Normal [facility] Ambulatory Visit Summaryon 0 10-25-2022 Ambulatory Visit Summary HARMAN MCLEOD :1940 Visit Date:10/25/2022 Ambulatory Visit Instructions Your Care Team Attending Physician - Iliana GAGNON MD Primary Care Physician - Mateus Perry MD This Is Your Medications List albuterol (albuterol 0.083% Inh Crys 3 mL) amlodipine (amLODIPine 5 mg Tab) apixaban (Eliquis 5 mg oral tablet) aspirin (aspirin 81 mg Chew Tab) cholecalciferol (Vitamin D3 2000 intl units oral Tab) furosemide (Lasix 20 mg Tab) glimepiride (glimepiride 4 mg Tab) hydrALAZINE (hydrALAZINE 100 mg oral tablet) hydrochlorothiazide (hydrochlorothiazide 12.5 mg Tab) isosorbide mononitrate (isosorbide mononitrate 60 mg ER Tab) levothyroxine (levothyroxine 112 mcg (0.112 mg) Tab) liothyronine (Cytomel 5 mcg Tab) metformin (metformin 500 mg Tab) metoprolol (metoprolol 200 mg ER Tab) omega-3 polyunsaturated fatty acids (Fish Oil 1000 mg oral capsule) ondansetron (ondansetron 4 mg Dis Tab) pantoprazole (Pantoprazole [address] Tab) simvastatin (simvastatin 20 mg Tab) sucralfate (Carafate 1 gram Tab) Procedures Performed Lumpectomy of right breast (10/19/2022), Appendectomy, Colposcopy, Cryocautery of cervix, Insertion of arterial stent, Insertion of stent in femoral vein, Repair of aneurysm, Ultrasonography guided biopsy of right breast, Urinary bladder reconstruction, Vaginal total hysterectomy. What to do next Scheduled Follow-Up Appointments Monday 2:00 PM EST With: Iliana GAGNON MD Where: General Surgery Nill/Angelita Israel Normal [facility] General Surgery Office/Clini c Noteon 10-25-2022 General Surgery Office/Clinic Note Chief Complaint post operative follow up HPI Staff 6 day post operative follow up post right breast needle localized lumpectomy with SN biopsy. Reports moderate discomfort, taking Tylenol for pain. Reports fair amount of bruising. Wearing supportive bra. Denies bleeding or drainage. History of Present Illness 6 days s/p right breast lumpectomy with sentinel lymph node biopsy; doing well, mild soreness; some bruising; no longer taking Tramadol; wearing bra all the time. pathology still pending. Review of Systems ROS - Provider Constitutional: no fever, no sweats, no weight loss. Eyes: no glasses, no blurred vision, no visual loss. ENMT: no dentures, no hoarseness, no swallowing difficulties, no hearing loss, no ear infection(s), no nose bleeds. Cardiovascular: normal blood pressure, no chest pain, regular heartbeat, no heart murmur. Respiratory: no shortness of breath, no cough, no asthma, no wheezing. Gastrointestinal: no nausea, no vomiting, no diarrhea, no constipation, no blood in stool, no change in bowel habits, no abdominal pain, no hepatitis. Genitourinary: no kidney stones, no urine infection, no dysuria. Musculoskeletal: no pain, no weakness. Skin: no changing moles, no rash, no skin lumps. Neurologic: no seizures, no epilepsy, no headache. Psychiatric: no emotional or psychiatric problem. Heme/Lymph: no bleeding problems, no anemia, no blood clots, no transfusions. Allergy/Immunologic: no swollen lymph nodes/glands, no IV drug abuse. Other: Additional ROS info: Except as noted in the above Review of Systems and in the History of Present Illness, all other systems have been reviewed and are negative or noncontributory. Physical Exam skin: incisions healing well, no erythema or drainage, some resolving ecchymoses; no hematoma, mild edema of breast. Assessment/Plan 1. Breast cancer of upper-outer quadrant of right female breast (C50.411: 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 female breast) doing well, continue to wear bra at all times for 1 more week; will call patient with pathology results; f/u in 2 weeks for wound check; call sooner if problems/questions. 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 of samish artery of extremity BMI 36.0-36.9,adult Brain stem vertigo Breast cancer of upper-outer quadrant of right female breast CAD (coronary artery disease) Carcinoma in situ of vagina Cervical disc disease Chronic anticoagulation Chronic diastolic heart failure Chronic low back pain Chronic obstructive pulmonary disease Diabetes Diverticulosis Edema GERD (gastroesophageal reflux disease) HTN (hypertension) Hypertriglyceridemia Hypothyroidism Invasive ductal carcinoma of right breast Osteopenia PAF (paroxysmal atrial fibrillation) Pseudoaneurysm of femoral artery Pure hypercholesterolemia PVD (peripheral vascular disease) Rectal bleeding Stage 2 chronic kidney disease Historical No qualifying data Procedure/Surgical History Lumpectomy of right breast (10/19/2022), Appendectomy, Colposcopy, Cryocautery of cervix, Insertion of arterial stent, Insertion of stent in femoral vein, Repair of aneurysm, Ultrasonography guided biopsy of right breast, Urinary bladder reconstruction, Vaginal total hysterectomy. Medications albuterol 0.083% Inh Crys 3 mL, 2.5 mg= 3 mL, NEB, QID amLODIPine 5 mg Tab, 5 mg= 1 tab(s), Oral, Daily aspirin 81 mg Chew Tab, 81 mg= 1 tab(s), Chewed, Daily Carafate 1 gram Tab, 1 gm= 1 tab(s), Oral, QIDACHS Cytomel 5 mcg Tab, 10 mcg= 2 tab(s), Oral, Daily Eliquis 5 mg oral tablet, 5 mg= 1 tab(s), Oral, BID Fish Oil 1000 mg oral capsule, 2000 mg= 2 cap(s), Oral, Daily glimepiride 4 mg Tab, 4 mg= 1 tab(s), Oral, BID hydrALAZINE 100 mg oral tablet, 100 mg= 1 tab(s), Oral, TID hydrochlorothiazide 12.5 mg Tab, 12.5 mg= 1 tab(s), Oral, BID isosorbide mononitrate 60 mg ER Tab, 60 mg= 1 tab(s), Oral, qAM Lasix 20 mg Tab, 20 mg= 1 tab(s), Oral, BID levothyroxine 112 mcg (0.112 mg) Tab, 112 mcg= 1 tab(s), Oral, Daily metformin 500 mg Tab, 500 mg= 1 tab(s), Oral, BID metoprolol 200 mg ER Tab, 200 mg= 1 tab(s), Oral, Daily ondansetron 4 mg Dis Tab, 4 mg= 1 tab(s), Oral, QID Pantoprazole [address] Tab, 40 mg= 1 tab(s), Oral, Daily simvastatin 20 mg Tab, 20 mg= 1 tab(s), Oral, Once a day (at bedtime) Vitamin D3 2000 intl units oral Tab, 50 mcg, Oral, Daily Allergies cefdinir (Vomiting) ciprofloxacin (Urticaria) oxyCODONE (Itching) Social History Alcohol - Denies Alcohol Use, 09/09/2022 Substance Abuse - Denies Substance Abuse, 09/09/2022 Tobacco Former smoker, quit more than 30 days ago Tobacco Use:. Never Smokeless Tobacco Use:. Cigarettes, 0.5 per day. Started age 22.0 Years. Stopped age 78 Years., 09/09/2022 Family History Diabetes mellitus type 2: Mother. Heart disease: Mo (more content not included)... Normal [facility] Comment on above: Result Comment: Elec tronically Signed By: CHELSI CARDONA, Iliana Alvarez\Date and Time Signed: 10/25/22 16:13 EST Operative Reporton Operative Report [id number] 0CD:127 Normal [facility] RAD - Ultrasound Reporton RAD - Ultrasound Report [id number] 0CD:127 Normal [facility] NM SENTNL NODEon 10-19-2022 NM SENTNL NODE NUCLEAR MEDICINE LYMPHOSCINTIGRAPHY. HISTORY: Infiltrating duct carcinoma of right female breast. COMPARISON: None. TECHNIQUE: Following four separate injections of 0.25 mCi of technetium-99M sulfur colloid in the right breast, scintigraphy of the chest was performed. FINDINGS: There is expected uptake of radio pharmaceutical at the injection site in the right breast. There is no evidence of a sentinel node. IMPRESSION: No scintigraphic evidence for sentinel node. Electronically authenticated by: KRISTIN JAQUEZ Date: 2022-10-19 10:41 Normal [facility] POINT OF CARE GLUCOSEon 02-0 Glucose [Mass/Vol] 153 mg/dL Critically high 74-106 T [facility] Comment on above: Performed By: #### P OCGLUC #### [facility] [address] [place] [address] Dr. Omid Bowden RAD - MISCon 10-19-2022 RAD - MISC [id number] 0CD:127 Normal [facility] RAD - MISC [id number] 0CD:127 Normal [facility] RAD - Ultrasound Reporton RAD - Ultrasound Report [id number] 0CD:127 Normal [facility] RAD - Ultrasound Report [id number] 0CD:127 Normal [facility] US BREAST SPECIMENon 023 US BREAST SPECIMEN Patient: HARMAN MCLEOD Exam Date: 10/19/2022 : 1940 Gender:F Ordering : DR ILIANA GAGNON . Admission #: [id number] Family : Order #: [id number] CLICK HERE TO VIEW EXAM RADIOLOGY REPORT PROCEDURE: US BREAST SPECIMEN COMPARISON: None. INDICATIONS: Specimen from breast FINDINGS: Breast specimen demonstrates inclusion of the targeted mass as well as the micro clip marker CONCLUSION: Targeted mass and micro clip marker included within the specimen Dictated by: Judson Bauman MD on 10/19/2022 at 11:46 Approved by: Judson Bauman MD on 10/19/2022 at 11:47 Normal [facility] US GUIDE LOCAL BREAST RTon 0 10-19-2022 US GUIDE LOCAL BREAST RT Patient: HARMAN MCLEOD Exam Date: 10/19/2022 : 1940 Gender:F Ordering : DR ILIANA GAGNON . Admission #: [id number] Family : Order #: [id number] CLICK HERE TO VIEW EXAM RADIOLOGY REPORT PROCEDURE: ULTRASOUND GUIDE LOCAL BREAST RIGHT COMPARISON: None. INDICATIONS: Infiltrating duct carcinoma of breast DESCRIPTION: After obtaining informed consent, a hookwire was placed in the usual sterile manner using ultrasound guidance. The wire was secured to the skin and sterile dressing applied. FINDINGS: RECOMMENDATIONS: TARGET LESION: 1.6 cm lobular mass with associated micro clip marker LOCATION: Right breast 9 NEEDLE: Georgina Goodmans spring hook; 20 g by 5 cm needle and wire. MEDICATION: 6 cubic cm Superficial and deep buffered 1% lidocaine. COMPLICATIONS: None. CONCLUSION: Technically successful hookwire localization. Dictated by: Judson Bauman MD on 10/19/2022 at 09:04 Approved by: Judson Bauman MD on 10/19/2022 at 09:05 Normal [facility] US SENTINEL NODEon US SENTINEL NODE EXAM: US SENTINEL NO DE HISTORY: Infiltrating duct carcinoma COMPARISON: None. TECHNIQUE: Grayscale and color ultrasound FINDINGS: Grayscale and color ultrasound demonstrates a 1.6 x 0.8 cm lobular heterogeneous hypoechogenic mass at the 9:00 position. Associated microclip marker from prior biopsy IMPRESSION: Localization of a 1.6 cm right breast mass Electronically authenticated by: JUDSON BAUMAN Date: 2022-10-19 08:59 Normal [facility] RAD - MISCon 10-17-2022 RAD - MISC [id number] 0CD:127 Normal [facility] CBC AUTO DIFFon 10-11-2022 BASO # 0.0 103/ul Normal 0.0-0.1 [facility] Comment on above: Performed By: #### H GB #### [facility] [address] [place] [address] Dr. Omid Bowden Basophils/100 WBC (Bld) 0.2 % Normal 0.2-2.0 [facility] Comment on above: Performed By: #### H GB #### [facility] [address] [place] [address] Dr. Omid Bowden EO # 0.0 103/ul Normal 0.0-0.7 [facility] Comment on above: Performed By: #### H GB #### [facility] [address] [place] [address] Dr. Omid Bowden Eosinophils/100 WBC (Bld) 0.3 % Critically low 0.9-7.0 [facility] Comment on above: Performed By: #### H GB #### [facility] [address] [place] [address] Dr. Omid Bowden Erythrocyte distribution width (RBC) [Ratio] 13.7 % Normal 11.0-15.0 [facility] Comment on above: Performed By: #### H GB #### [facility] [address] [place] [address] Dr. Omid Bowden Hematocrit (Bld) [Volume fraction] 39.6 % Normal 36.0-48.0 [facility] Comment on above: Performed By: #### H GB #### [facility] [address] [place] [address] Dr. Omid Bowden Hemoglobin (Bld) [Mass/Vol] 12.3 g/dL Normal 12.0-16.0 [facility] Comment on above: Performed By: #### H GB #### [facility] [address] [place] [address] Dr. Omid Bowden IG # 0.06 10e3/ul Critically high 0.00-0.03 [facility] Comment on above: Performed By: #### H GB #### [facility] [address] [place] [address] Dr. Omid Bowden IG % 0.5 % Normal 0.0-0.5 [facility] Comment on above: Performed By: #### H GB #### [facility] [address] [place] [address] Dr. Omid Bowden LYMPH # 2.9 103/ul Normal 1.2-3.8 [facility] Comment on above: Performed By: #### H GB #### [facility] [address] [place] [address] Dr. Omid Bowden Lymphocytes/100 WBC (Bld) 26.2 % Normal 20.5-60.0 [facility] Comment on above: Performed By: #### H GB #### [facility] [address] [place] [address] Dr. Omid Bowden MANUAL DIFF REQ NO Normal [facility] Comment on above: Performed By: #### H GB #### [facility] [address] [place] [address] Dr. Omid Bowden MCH (RBC) [Entitic mass] 28.3 pg Normal 26.7-34.0 [facility] Comment on above: Performed By: #### H GB #### [facility] [address] [address] [address] Omid Bowden MCHC (RBC) [Mass/Vol] 31.1 g/dL Normal 29.9-35.2 [facility] Comment on above: Performed By: #### H GB #### [facility] [address] [address] [address] Omid Bowden MCV (RBC) [Entitic vol] 91.2 fL Normal 81.0-99.0 [facility] Comment on above: Performed By: #### H GB #### [facility] [address] [address] [address] Omid Bowden MONO # 0.9 103/ul Critically high 0.3-0.8 [facility] Comment on above: Performed By: #### H GB #### [facility] [address] [address] [address] Omid Bowden Monocytes/100 WBC (Bld) 8.3 % Normal 1.7-12.0 [facility] Comment on above: Performed By: #### H GB #### [facility] [address] [address] [address] Omid Bowden NEUT # 7.0 103/ul Critically high 1.4-6.5 [facility] Comment on above: Performed By: #### H GB #### [facility] [address] [address] [address] Omid Bowden Neutrophils/100 WBC (Bld) 64.5 % Normal 43.0-75.0 [facility] Comment on above: Performed By: #### H GB #### [facility] [address] [address] [address] Omid Bowden Platelet mean volume (Bld) [Entitic vol] 9.2 fL Critically low 9.5-13.5 [facility] Comment on above: Performed By: #### H GB #### [facility] [address] [address] [address] Omid Bowden PLT 346 103/ul Normal 150-450 [facility] Comment on above: Performed By: #### H GB #### [facility] [address] [place] [address] Dr. Omid Bowden RBC 4.34 106/ul Normal 4.20-5.40 [facility] Comment on above: Performed By: #### H GB #### [facility] [address] [address] [address] Omid Bowden WBC 10.9 103/ul Normal 4.0-11.0 [facility] Comment on above: Performed By: #### H GB #### [facility] [address] [place] [address] Dr. Omid Bowden PROF CHEM 8 (BAS METB)on Anion gap [Moles/Vol] 11.0 mmol/L [facility] Comment on above: Performed By: #### L IPID, BMP #### [facility] [address] [place] [address] Dr. Omid Bowden Calcium [Mass/Vol] 9.6 mg/dL Normal 8.5-10.1 [facility] Comment on above: Performed By: #### L IPID, BMP #### [facility] [address] [place] [address] Dr. Omid Bowden Chloride [Moles/Vol] 99 mmol/L Normal 98-107 [facility] Comment on above: Performed By: #### L IPID, BMP #### [facility] [address] [place] [address] Dr. Omid Bowden CO2 [Moles/Vol] 32.0 mmol/L Normal 21.0-32.0 [facility] Comment on above: Performed By: #### L IPID, BMP #### [facility] [address] [place] [address] Dr. Omid Bowden Creatinine [Mass/Vol] 1.03 mg/dL Critically high 0.55-1.02 [facility] Comment on above: Performed By: #### L IPID, BMP #### [facility] [address] [address] [address] Omid Bowden EGFR-AF SWAZI >60 Normal >=60 [facility] Comment on above: Performed By: #### L IPID, BMP #### [facility] [address] [address] [address] Omid Bowden EGFR-NON AF SWAZI 52 mL/min/1.73m2 Critically low >=60 [facility] Comment on above: Performed By: #### L IPID, BMP #### [facility] [address] [address] [address] Omid Bowden Glucose [Mass/Vol] 94 mg/dL Normal 74-106 [facility] Comment on above: Performed By: #### L IPID, BMP #### [facility] [address] [place] [address] Dr. Omid Bowden Potassium [Moles/Vol] 4.0 mmol/L Normal 3.5-5.1 [facility] Comment on above: Performed By: #### L IPID, BMP #### [facility] [address] [place] [address] Dr. Omid Bowden Sodium [Moles/Vol] 138 mmol/L Normal 136-145 [facility] Comment on above: Performed By: #### L IPID, BMP #### [facility] [address] [place] [address] Dr. Omid Bowden Urea nitrogen [Mass/Vol] 28.0 mg/dL Critically high 7.0-18.0 [facility] Comment on above: Performed By: #### L IPID, BMP #### [facility] [address] [place] [address] Dr. Omid Bowden Urea nitrogen/Creatinine [Mass ratio] 27.2 mg/mg Normal [facility] Comment on above: Performed By: #### L IPID, BMP #### [facility] [address] [address] [address] Omid Bowden PROTIMEon 10-11-2022 INR Coag (PPP) [Relative time] 0.99 {INR} Normal [facility] Comment on above: Performed By: #### H GB #### [facility] [address] [place] [address] Dr. Omid Bowden INR GUIDELINES SEE BELOW Normal [facility] Comment on above: Result Comment: PERLITA RED INR: 2.0 - 3.0 CONDITIONS NOT LISTED BELOW 2.5 - 3.5 FOR PROSTHETIC HEART VALVE REPLACEMENT 2.5 - 3.5 RECURRENT THROMBOSIS Performed By: #### H GB #### [facility] [address] [place] [address] Dr. Omid Bowden PT Coag (PPP) [Time] 10.5 s Normal 9.0-11.6 [facility] Comment on above: Performed By: #### H GB #### [facility] [address] [place] [address] Dr. Omid Bowedn PTTon 10-11-2022 aPTT Coag (Bld) [Time] 28.6 s Normal 22.3-36.2 [facility] Comment on above: Performed By: #### H GB #### [facility] [address] [place] [address] Dr. Omid Bowden Consultation Noteon 10-06-19 Consultation Note [id number] 0CD:127 Normal [facility] INSULINon 10-01-2022 Insulin 22.8 uIU/mL Normal 2.6-24.9 [facility] Comment on above: Performed By: #### L IPID, BMP #### [facility] [address] [place] [address] Dr. Omid Bowden GLYCOHEMOGLOBIN A1Con 2022 ADA RECOMMENDATION SEE BELOW Normal [facility] Comment on above: Result Comment: ADA RECOMMENDED LIMIT 4.0 - 6.0 ADA THERAPEUTIC TARGET < 7.0 ACTION SUGGESTED > 7.0 Performed By: #### H GB #### [facility] [address] [place] [address] Dr. Omid Bowden Glucose [Mass/Vol] 177 mg/dL Normal [facility] Comment on above: Performed By: #### H GB #### [facility] [address] [address] [address] Omid Bowden HbA1c (Bld) [Mass fraction] 7.8 % Critically high 4.5-6.2 [facility] Comment on above: Performed By: #### H GB #### [facility] [address] [address] [address] Omid Bowden PROF 14(COMP METB)on 023 Albumin [Mass/Vol] 3.0 g/dL Critically low 3.4-5.0 [facility] Comment on above: Performed By: #### C MP ####[facility] [address] [address]DrMedardo Bowden Albumin/Globulin [Mass ratio] 0.7 {ratio} Normal [facility] Comment on above: Performed By: #### C MP ####[facility] [address] [address]DrMedardo Bowden ALP [Catalytic activity/Vol] 73 U/L Normal 46-116 [facility] Comment on above: Performed By: #### C MP ####[facility] [address] [address]DrMedardo Bowden ALT [Catalytic activity/Vol] 16 U/L Normal 14-59 [facility] Comment on above: Performed By: #### C MP ####[facility] [address] [address]DrMedardo Bowden Anion gap [Moles/Vol] 11.3 mmol/L [facility] Comment on above: Performed By: #### C MP ####[facility] [address] [address]DrMedardo Bowden AST [Catalytic activity/Vol] 14 U/L Critically low 15-37 [facility] Comment on above: Performed By: #### C MP ####[facility] [address] [address]DrMedardo Bowden Bilirubin [Mass/Vol] 0.3 mg/dL Normal 0.2-1.0 [facility] Comment on above: Performed By: #### C MP ####[facility] [address] [address]Dr. Omid Bowden Calcium [Mass/Vol] 9.5 mg/dL Normal 8.5-10.1 [facility] Comment on above: Performed By: #### C MP ####[facility] [address] [address]Dr. Omid Bowden Chloride [Moles/Vol] 102 mmol/L Normal 98-107 [facility] Comment on above: Performed By: #### C MP ####[facility] [address] [place], [place] [address]Dr. Omid Bowden CO2 [Moles/Vol] 31.1 mmol/L Normal 21.0-32.0 [facility] Comment on above: Performed By: #### C MP ####[facility] [address] [place], [place] [address]Dr. Omid Bowden Creatinine [Mass/Vol] 1.28 mg/dL Critically high 0.55-1.02 [facility] Comment on above: Performed By: #### C MP ####[facility] [address] [place], [place] [address]Dr. Omid Bowden EGFR-AF SWAZI 49 mL/min/1.73m2 Critically low >=60 [facility] Comment on above: Performed By: #### C MP ####[facility] [address] [place], [place] [address]Dr. Omid Bowden EGFR-NON AF SWAZI 40 mL/min/1.73m2 Critically low >=60 [facility] Comment on above: Performed By: #### C MP ####[facility] [address] [place], [place] [address]Dr. Omid Bowden Globulin (S) [Mass/Vol] 4.4 g/dL Normal [facility] Comment on above: Performed By: #### C MP ####[facility] [address] [place], [place] [address]Dr. Omid Bowden Glucose [Mass/Vol] 103 mg/dL Normal 74-106 [facility] Comment on above: Performed By: #### C MP ####[facility] [address] [id number] Omid Bowden Potassium [Moles/Vol] 4.4 mmol/L Normal 3.5-5.1 [facility] Comment on above: Performed By: #### C MP ####[facility] [address] [id number][address] Omid Bowden Protein [Mass/Vol] 7.4 g/dL Normal 6.4-8.2 [facility] Comment on above: Performed By: #### C MP ####[facility] [address] [address]Dr. Omid Bowden Sodium [Moles/Vol] 140 mmol/L Normal 136-145 [facility] Comment on above: Performed By: #### C MP ####[facility] [address] [address]Dr. Omid Bowden Urea nitrogen [Mass/Vol] 27.0 mg/dL Critically high 7.0-18.0 [facility] Comment on above: Performed By: #### C MP ####[facility] [address] [address]Dr. Omid Bowden Urea nitrogen/Creatinine [Mass ratio] 21.1 mg/mg Normal [facility] Comment on above: Performed By: #### C MP ####[facility] [address] [address]Dr. Omid Bowden Formson 09-29-2022 Forms [id number] 0CD:127 Normal [facility] Consent for Procedure/Surger yon 09-26-2022 Consent for Procedure/Surgery [id number] 0CD:127 Normal [facility] Consultation Noteon 09-23-19 Consultation Note [id number] 0CD:127 Normal [facility] CNOVon 09-22-2022 CNOV Office Visit (RADTSA ) HARMAN MCLEOD ([id number]) 1940 F Date Time Provider Department 09/22/22 1:00 PM MARCIN SHAH During your visit today, we recorded the following information about you: Marcin Shah MD 2022 6:06 AM Addendum Radiation Oncology - New Patient/Consult Note PATIENT NAME: Harman Mcleod PATIENT REQUESTING PHYSICIAN: Dr. 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 PATIENT IDENTIFICATION: This patient was seen in the Department of Radiation Oncology at the [facility] with Marcin Shah MD. She was accompanied today by her family. Final recommendations will be communicated back to the requesting physician by way of the shared medical record, or letter to requesting physician via US mail. HISTORY OF PRESENT ILLNESS: Ms. Mcleod is an 82-year-old woman from [place], [place] who was discovered on screening mammogram from July 2022 to have an abnormality within the anterior upper outer quadrant of the right breast. 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 She has met with Dr. Gagnon to discuss her surgical treatment options likely planning for lumpectomy/breast conservation with sentinel node biopsy. She has met with my colleague Dr. Stone to discuss her systemic therapy options and is referred today to the radiation medicine clinic to have a discussion regarding the role of radiation therapy in the postoperative treatment of her early stage breast cancer. INTERVAL/HISTORY/REVIE W OF SYSTEMS: Ms. Mcleod reports no palpable abnormality in the area of disease identified in the right breast with no pain or discomfort in the breast or discharge from the nipple. She recent episode of bronchitis as well as loss of appetite and nausea over the past 2 weeks and dyspnea on exertion. She has issues with balance as well as memory but otherwise denies any recent new headaches, difficulty with speech/swallowing, chest pain/palpitations, abdominal pain, vomiting, change in bowel/urinary function. The remainder of the review of systems was performed and was otherwise non-contributory except as described above. 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 PAST SURGICAL HISTORY: PAST SURGICAL HISTORY Procedure Laterality Date APPENDECTOMY HX SECTION HX DILATION AND CURETTAGE Uterus for SAB LOOPOGRAM HYSTERECTOMY HX PAST SURGICAL HISTORY OF cardiac sent PAST SURGICAL HISTORY OF Repair of aneurysm PAST SURGICAL HISTORY OF Bladder reconstruction PRQ CARDIAC STENT W/ANGIO 1 VSL SLING OPER STRES INCONTINENCE VAGINOSCOPY VULVECTOMY SIMPLE PARTIAL 04/30/2020 EUA, vaginal bx, vaginal laser, partial vulvectomy FAMILY HISTORY: FAMILY HISTORY Problem Relation Age of Onset Hypertension Mother Hyperlipidemia Mother other (non-insulin dependent diabetes mellitus) Mother other (heart disease) Mother other (cerebrovascular accident hypothyroid) Mother Cancer Father Arthritis Father Hypertension Father Asthma Father other (heart disease) Father Breast Cancer Sister Breast Cancer Other SOCIAL HISTORY: Social History Tobacco Use Smoking status: Former Packs/day: 0.50 Years: 50.00 Pack years: 25.00 Types: Cigarettes Quit date: 06/28/2018 Years since quittin.2 Passive exposure: Past Smokeless tobacco: Never Vaping Use Vaping Use: Never used Substance Use Topics Alcohol use: No Drug use: No RADIATION HISTORY: The patient denies any history of therapeutic radiation. ALLERGIES: ALLERGIES Allergen Reactions Cefdinir Other: See Comments, Vomiting Ciprofloxacin Other: See Comments tendon issues Oxycodone-Acetamino* Intolerance, GI Upset MEDICATIONS: Current Outpatient Medications: potassium chloride 20 mEq TbER levoFLOXacin (LEVAQUIN) 750 mg tablet crenshaw (more content not included)... Normal [facility] CNOVSPon 09-22-2022 CNOVSP Visit (SP) Office (HEMAS[place]) HARMAN MCLEOD ([id number]) 1940 F Date Time Provider Department 09/22/22 11:30 AM WALLACE STONE During your visit today, we recorded the following information about you: Temperature Pulse Respiration Blood pressure 97.8 degrees 70/minute 16/minute 137/64 Weight Height 84.8 kg 1.549 m Wallace Stone MD 09/22/2022 5:19 PM Signed PATIENT NAME: Harman Mcleod CLINIC NO.: [id number] ATTENDING PHYSICIAN: Wallace Stone MD DATE OF SERVICE: September 22, [address] Iliana Gagnon, thank you for referring Mrs Harman Mcleod for an opinion regarding newly diagnosed breast cancer. CHIEF COMPLAINT: I have breast cancer HPI: Harman Mcleod is a 81 year old year old female with past medical history significant for multiple comorbidities including coronary artery disease, atrial fibrillation on Eliquis, hypertension, diabetes, COPD, hyperlipidemia, peripheral vascular disease, stage II chronic renal insufficiency who had undergone a screening mammography and July 2022 which demonstrated an 8 mm poorly defined mass within the anterior upper outer quadrant, approximately 9-10 o'clock in the right breast. This led to additional imaging studies including an ultrasound which demonstrated a 10 x 9 x 9 mm hypoechoic mass with irregular margin in the right breast. The patient subsequently underwent an ultrasound-guided core biopsy in August 2022 which demonstrated invasive ductal carcinoma, provisional grade 1 through 2, ER and HI greater than 95% positive, HER2/holden negative with an IHC score of 1+ and FISH negative at [facility]. This patient was subsequently referred to Dr. Iliana Gagnon for surgical consultation. Patient denies any previous history of abnormal mammograms and or breast biopsy. She has had a recent bone density in [place] and was diagnosed with osteoporosis and started on Prolia as well. Patient has a sister who was diagnosed with breast cancer at the age of 82 and her daughter diagnosed with breast cancer at the age of 37. She quit smoking approximately 4 years ago. 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 She denies any estrogen use. Current Outpatient Medications Medication Sig potassium chloride 20 mEq TbER TAKE 1 TABLET BY MOUTH THREE TIMES A DAY DO NOT CRUSH, CHEW, OR SPLIT. levoFLOXacin (LEVAQUIN) 750 mg tablet sucralfate (CARAFATE) 1 gram tablet Take 1 g by mouth four times daily. liothyronine (CYTOMEL) 5 mcg tablet Take 5 mcg by mouth once daily. ondansetron (ZOFRAN) 4 mg tablet Take 4 mg by mouth every 8 hours as needed for nausea/vomiting. pantoprazole DR (PROTONIX) 40 mg tablet Take 40 mg by mouth once daily. acetaminophen (TYLENOL EXTRA STRENGTH) 500 mg tablet Take 2 tablets by mouth every 6 hours as needed for Pain. docusate sodium (COLACE) 100 mg capsule Take 2 capsules by mouth at bedtime as needed (opioid-induced constipation). furosemide (LASIX) 20 mg tablet Take 20 mg by mouth twice daily. cetirizine (ZYRTEC) 10 mg tablet Take 10 mg by mouth twice daily. citalopram (CELEXA) 20 mg tablet apixaban (ELIQUIS) 2.5 mg tab(s) Take 5 mg by mouth twice daily. hydrALAZINE (APRESOLINE) 100 mg tablet Take 100 mg by mouth three times daily. hydroCHLOROthiazide (HYDRODIURIL, ESIDRIX) 12.5 mg tablet Take 12.5 mg by mouth once daily. metoprolol succinate ER (TOPROL XL) 200 mg 24 hr tablet metoprolol succinate ER 200 mg tablet,extended release 24 hr DULERA 100-5 mcg/actuation inhaler glimepiride (AMARYL) 4 mg tablet Take 4 mg by mouth twice daily with meals. BREO ELLIPTA 100-25 mcg/dose inhaler Inhale 1 Inhalation as instructed once daily. aspirin, enteric coated (ASPIRIN, ENTERIC COATED) 81 mg EC tablet Take 81 mg by mouth once daily. levothyroxine (SYNTHROID) 112 mcg tablet Take 125 mcg by mouth once daily. amLODIPine (NORVASC) 5 mg tablet Take by mouth once daily. metoprolol tartrate, short acting, (LOPRESSOR) 100 mg tablet Take 100 mg by mouth twice daily. Patient takes 1/2 tab 2x a day metFORMIN (GLUCOPHAGE) 500 mg tablet Take 500 mg by mouth twice daily with meals. albuterol (PROVENTIL) 2.5 mg /3 mL (0.083 %) nebulizer solution Use 2.5 mg via nebulizer as needed. ALBUTEROL SULFATE (VENTOLIN INHALATION) Inhale 2 Puffs as instructed as needed. simvastatin (ZOCOR) 20 mg tablet Take 40 mg by mouth daily at bedtime. Cut in half Oojzy-6-KLR-EPA-Fish Oil 1,000 mg (120 mg-180 mg) cap Take 2 g by mouth twice daily. isosorbide mononitrate ER (IMDUR) 60 mg 24 hr tablet Take 60 mg by mouth twice daily. No current facility-administered medications for this visit. ALLERGIES Allergen Reactions Cefdinir Other: See Comments, Vomiting Ciprofloxacin Other: See Comments tendon issues Oxycodone-Acetamino* Intolerance, GI Upset PAST MEDICAL HISTORY Diagnosis Date ASCUS with positive high r (more content not included)... Normal [facility] [place] 09-22-2022 JENNY Telephone ([place]) HARMAN MCLEOD ([id number]) 1940 F Date Time Provider Department 09/22/22 LARS WILKERSON During your visit today, we recorded the following information about you: Lars Wilkerson RN 09/22/2022 1:44 PM Signed Call placed to Zakiya at Dr Gagnon's office. Pt had cardiac clearance on 09/16/22 and is scheduled for surgery on 10/19/22. There are a few different things that have to be coordinated for her surgery and as of now this date is going to work for everything involved. ELADIO Larry RN 09/22/2022 3:52 PM Signed Wallace Stone MD You 2 hours ago (1:49 PM) Ok. Allergies As of Date: 09/22/2022 Noted Allergy Reaction CEFDINIR 09/13/2022 14 - Other: See Comments 11 - Vomiting CIPROFLOXACIN 09/29/2017 14 - Other: See Comments Comments: tendon issues OXYCODONE-ACETAMINOPHE N 03/31/2013 5 - Intolerance 8 - GI Upset Date Reviewed: 09/22/2022 Reviewed by: Jeaneth Perdomo - Fully Assessed Reason for Visit: Care Coordination [9024] Cmt: Surgery update Prescriptions as of 09/22/2022 - potassium chloride 20 mEq TbER TAKE 1 TABLET BY MOUTH THREE TIMES A DAY DO NOT CRUSH, CHEW, OR SPLIT. - levoFLOXacin (LEVAQUIN) 750 mg tablet - sucralfate (CARAFATE) 1 gram tablet Take 1 g by mouth four times daily. - liothyronine (CYTOMEL) 5 mcg tablet Take 5 mcg by mouth once daily. - ondansetron (ZOFRAN) 4 mg tablet Take 4 mg by mouth every 8 hours as needed for nausea/vomiting. - pantoprazole DR (PROTONIX) 40 mg tablet Take 40 mg by mouth once daily. - acetaminophen (TYLENOL EXTRA STRENGTH) 500 mg tablet Take 2 tablets by mouth every 6 hours as needed for Pain. - docusate sodium (COLACE) 100 mg capsule Take 2 capsules by mouth at bedtime as needed (opioid-induced constipation). - furosemide (LASIX) 20 mg tablet Take 20 mg by mouth twice daily. - cetirizine (ZYRTEC) 10 mg tablet Take 10 mg by mouth twice daily. - citalopram (CELEXA) 20 mg tablet - apixaban (ELIQUIS) 2.5 mg tab(s) Take 5 mg by mouth twice daily. - hydrALAZINE (APRESOLINE) 100 mg tablet Take 100 mg by mouth three times daily. - hydroCHLOROthiazide (HYDRODIURIL, ESIDRIX) 12.5 mg tablet Take 12.5 mg by mouth once daily. - metoprolol succinate ER (TOPROL XL) 200 mg 24 hr tablet metoprolol succinate ER 200 mg tablet,extended release 24 hr - DULERA 100-5 mcg/actuation inhaler - glimepiride (AMARYL) 4 mg tablet Take 4 mg by mouth twice daily with meals. - BREO ELLIPTA 100-25 mcg/dose inhaler Inhale 1 Inhalation as instructed once daily. - aspirin, enteric coated (ASPIRIN, ENTERIC COATED) 81 mg EC tablet Take 81 mg by mouth once daily. - levothyroxine (SYNTHROID) 112 mcg tablet Take 125 mcg by mouth once daily. - amLODIPine (NORVASC) 5 mg tablet Take by mouth once daily. - metoprolol tartrate, short acting, (LOPRESSOR) 100 mg tablet Take 100 mg by mouth twice daily. Patient takes 1/2 tab 2x a day - metFORMIN (GLUCOPHAGE) 500 mg tablet Take 500 mg by mouth twice daily with meals. - albuterol (PROVENTIL) 2.5 mg /3 mL (0.083 %) nebulizer solution Use 2.5 mg via nebulizer as needed. - ALBUTEROL SULFATE (VENTOLIN INHALATION) Inhale 2 Puffs as instructed as needed. - simvastatin (ZOCOR) 20 mg tablet Take 40 mg by mouth daily at bedtime. Cut in half - Ohumd-3-UCG-EPA-Fish Oil 1,000 mg (120 mg-180 mg) cap Take 2 g by mouth twice daily. - isosorbide mononitrate ER (IMDUR) 60 mg 24 hr tablet Take 60 mg by mouth twice daily. Problem List As Of Date 09/22/2022 Noted Resolved Hypertension [I10] DM type 2 (diabetes mellitus, type 2) ([facility]) [E1* Essential hypertension [I10] 01/16/2017 Type 2 diabetes mellitus without complication, *01/16/2017 Hypothyroidism [E03.9] 01/16/2017 Dyslipidemia [E78.5] 01/16/2017 Atherosclerosis of samish coronary artery of na*01/16/2017 S/P coronary artery stent placement [Z95.5] 01/16/2017 Moderate smoker (20 or less per day) [F17.210] 01/16/2017 PAD (peripheral artery disease) ([facility]) [I73.9] 01/16/2017 Vaginal lesion [N89.8] 01/20/2017 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 Encounter Status:Closed by LARS WILKERSON on 09/22/22 [facility] 09-22-19 Consultation Note [id number]#1.0 0CD:127 Normal [facility] Covid-19 PCR (CVDTB)on 09-11 SARS-CoV-2 (COVID-19) RNA MARII+probe Ql (Unsp spec) Not detected Normal NOT DETECTED [facility] Comment on above: Result Comment: When diagnostic testing is negative, the possibility of a false negative should be considered in the context of a patient's recent exposures and the presence of clinical signs and symptoms consistent with SARS-CoV-2. This test is not yet approved or cleared by the [place] FDA. When there are no FDA-approved or cleared tests available, and other criteria are met, FDA can make tests available under an emergency access mechanism called an Emergency Use Authorization (EUA). The EUA for this test is supported by the [place] of Health and Human Service's declaration that circumstances exist to justify the emergency use of in vitro diagnostics for the detection and/or diagnosis of the virus that causes COVID-19. This EUA will remain in effect for the duration of the COVID-19 declaration justifying emergency of IVDs, unless it is terminated or revoked by the FDA (after which the test may no longer be used). Performed By: #### C VDTBH ####[facility] [address] [place] [address]Dr. Omid Bowden INFLUENZA A AND B AGon 09-21 INFLUANE SEE BELOW Normal [facility] Comment on above: Result Comment: Nega tive for Flu A protein angiten. Infection due to Flu A cannot be ruled out. Flu A angiten in the sample may be below the detection limit of the test. Performed By: #### I NFLUAB ####[facility] [address] [place] [address]Dr. Omid Bowden INFLUBNEGH SEE BELOW Normal [facility] Comment on above: Result Comment: Nega tive for Flu B protein antigen. Infection due to Flu B cannot be ruled out. Flu B antigen in the sample may be below the detection limit of the test. Performed By: #### I NFLUAB ####[facility] [address] [place], [place] [address]Fe. Omid Bowden INFLUENZA A AG Negative Normal NEGATIVE SEE COMMENT [facility] Comment on above: Performed By: #### I NFLUAB ####[facility] [address] [place], [place] [address]Ui. Omid Bowden INFLUENZA B AG Negative Normal NEGATIVE SEE COMMENT [facility] Comment on above: Performed By: #### I NFLUAB ####[facility] [address] [place], [place] [address]Zc. Omid Bowden 37on 09-16-2022 37 -Check blood work today. Will let you know whether to continue hydrochlorothiazide or switch to a new medication called Spironolactone. -Ok to proceed with lumpectomy Normal [facility] LIPID PROFILEon 09-16-2022 CHOL-HDL RATIO NORM SEE BELOW Normal [facility] Comment on above: Result Comment: 3.3 - 4.4 LOW RISK 4.4 - 7.1 AVERAGE RISK 7.1 - 11.0 MODERATE RISK >11.0 HIGH RISK Performed By: #### L IPID, BMP #### [facility] [address] [place] [address] Dr. Omid Bowden Cholesterol [Mass/Vol] 210 mg/dL Critically high <=200 [facility] Comment on above: Performed By: #### L IPID, BMP #### [facility] [address] [address] [address] Omid Bowden Cholesterol in HDL [Mass/Vol] 49 mg/dL Normal 40-60 [facility] Comment on above: Performed By: #### L IPID, BMP #### [facility] [address] [address] [address] Omid Bowden Cholesterol in LDL [Mass/Vol] 84.2 mg/dL Normal [facility] Comment on above: Performed By: #### L IPID, BMP #### [facility] [address] [address] [address] Omid Bowden Cholesterol.total/Chol esterol in HDL [Mass ratio] 4.3 {ratio} Normal [facility] Comment on above: Performed By: #### L IPID, BMP #### [facility] [address] [address] [address] Omid Bowden HDL NORMAL > or = 60 mg/dl - LO W CARDIOVASCULAR RISK <40 mg/dl - HIGH CARDIOVASCULAR RISK Normal [facility] Comment on above: Performed By: #### L IPID, BMP #### [facility] [address] [address] [address] Omid Bowden LDL CALC NORMAL SEE BELOW Normal [facility] Comment on above: Result Comment: <100 mg/dl OPTIMAL 100 - 129 mg/dl NEAR OR ABOVE OPTIMAL 130 - 159 mg/dl BORDERLINE HIGH 160 - 189 mg/dl HIGH >190 mg/dl VERY HIGH Performed By: #### L IPID, BMP #### [facility] [address] [address] [address] Omid Bowden Triglyceride [Mass/Vol] 384 mg/dL Critically high <=150 [facility] Comment on above: Performed By: #### L IPID, BMP #### [facility] [address] [address] [address] Omid Bowden VLDL CALC 76.8 mg/dL Normal [facility] Comment on above: Performed By: #### L IPID, BMP #### [facility] [address] [address] [address] Omid Bowden Office Visiton 09-16-2022 Follow-up visit [id number] Harman Mcleod 1940 F Date Provider Department Center 09/16/2022 [id number] QUEEN [facility] Family History Problem Relation Age of Onset Stroke Mother Coronary artery disease Father Heart attack Father Family Status - Relation Status Age at Mother Father Level of Service:02860 HI OFFICE/OUTPATIENT ESTABLISHED MOD MDM 30-39 MIN Reason for Visit and Comments: Atrial Fibrillation [80] Coronary Artery Disease [187] Congestive Heart Failure [127] Hypertension [452385] Peripheral Vascular Disease [458] Normal [facility] PROF CHEM 8 (BAS METB)on Anion gap [Moles/Vol] 10.8 mmol/L Normal [facility] Comment on above: Performed By: #### L IPID, BMP #### [facility] [address] [place] [address] Dr. Omid Bowden Calcium [Mass/Vol] 8.8 mg/dL Normal 8.5-10.1 [facility] Comment on above: Performed By: #### L IPID, BMP #### [facility] [address] [place] [address] Dr. Omid Bowden Chloride [Moles/Vol] 98 mmol/L Normal 98-107 [facility] Comment on above: Performed By: #### L IPID, BMP #### [facility] [address] [place] [address] Dr. Omid Bowden CO2 [Moles/Vol] 34.5 mmol/L Critically high 21.0-32.0 [facility] Comment on above: Performed By: #### L IPID, BMP #### [facility] [address] [place] [address] Dr. Omid Bowden Creatinine [Mass/Vol] 1.17 mg/dL Critically high 0.55-1.02 [facility] Comment on above: Performed By: #### L IPID, BMP #### [facility] [address] [place] [address] Dr. Omid Bowden EGFR-AF SWAZI 54 mL/min/1.73m2 Critically low >=60 [facility] Comment on above: Performed By: #### L IPID, BMP #### [facility] [address] [place] [address] Dr. Omid Bowden EGFR-NON AF SWAZI 45 mL/min/1.73m2 Critically low >=60 [facility] Comment on above: Performed By: #### L IPID, BMP #### [facility] [address] [place] [address] Dr. Omid Bowden Glucose [Mass/Vol] 193 mg/dL Critically high 74-106 [facility] Comment on above: Performed By: #### L IPID, BMP #### [facility] [address] [address] [address] Omid Bowden Potassium [Moles/Vol] 3.3 mmol/L Critically low 3.5-5.1 [facility] Comment on above: Performed By: #### L IPID, BMP #### [facility] [address] [address] [address] Omid Bowden Sodium [Moles/Vol] 140 mmol/L Normal 136-145 [facility] Comment on above: Performed By: #### L IPID, BMP #### [facility] [address] [address] [address] Omid Bowden Urea nitrogen [Mass/Vol] 31.0 mg/dL Critically high 7.0-18.0 [facility] Comment on above: Performed By: #### L IPID, BMP #### [facility] [address] [address] [address] Omid Bowden Urea nitrogen/Creatinine [Mass ratio] 26.5 mg/mg Normal [facility] Comment on above: Performed By: #### L IPID, BMP #### [facility] [address] [address] [address] Omid Bowden Facesheeton 09-13-2022 Facesheet [id number]#1.0 0CD:127 Normal [facility] Consultation Noteon 09-01-20 Consultation Note [id number]#1.0 0CD:127 Normal [facility] ED Note-Physicianon 09-01-20 ED Note-Physician [id number]#1.0 0CD:127 Normal [facility] Lab Reportson 09-01-2022 Lab Reports [id number]#1.0 0CD:127 Normal [facility] Lab Reports [id number]#1.0 0CD:127 Normal [facility] Physician Referralon 022 Physician Referral [id number]#1.0 0CD:127 Normal [facility] C. DIFF PCRon 08-23-2022 C. DIFFICILE PCR Negative Normal NEGATIVE [facility] Comment on above: Performed By: #### C DIFPOC ####[facility] [address] [place] [address]Dr. Omid Bowden CBC AUTO DIFFon 08-19-2022 BASO # 0.0 103/ul Normal 0.0-0.1 [facility] Comment on above: Performed By: #### C BC ####[facility] [address] [place], [place] [address]Dr. Omid Bowden Basophils/100 WBC (Bld) 0.3 % Normal 0.2-2.0 [facility] Comment on above: Performed By: #### C BC ####[facility] [address] [place], [place] [address]Dr. Omid Bowden EO # 0.5 103/ul Normal 0.0-0.7 [facility] Comment on above: Performed By: #### C BC ####[facility] [address] [place], [place] [address]Dr. Omid Bowden Eosinophils/100 WBC (Bld) 3.2 % Normal 0.9-7.0 [facility] Comment on above: Performed By: #### C BC ####[facility] [address] [place], [place] [address]Dr. Omid Bowden Erythrocyte distribution width (RBC) [Ratio] 14.1 % Normal 11.0-15.0 [facility] Comment on above: Performed By: #### C BC ####[facility] [address] [place], [place] [address]Dr. Omid Bowden Hematocrit (Bld) [Volume fraction] 36.1 % Normal 36.0-48.0 [facility] Comment on above: Performed By: #### C BC ####[facility] [address] [place], [place] [address]Dr. Omid Bowden Hemoglobin (Bld) [Mass/Vol] 11.7 g/dL Critically low 12.0-16.0 [facility] Comment on above: Performed By: #### C BC ####[facility] [address] [place] [address]DrMedardo Bowden IG # 0.08 10e3/ul Critically high 0.00-0.03 [facility] Comment on above: Performed By: #### C BC ####[facility] [address] [place] [address]DrMedardo Bowden IG % 0.5 % Normal 0.0-0.5 [facility] Comment on above: Performed By: #### C BC ####[facility] [address] [place] [address]DrMedardo Bowden LYMPH # 1.2 103/ul Normal 1.2-3.8 [facility] Comment on above: Performed By: #### C BC ####[facility] [address] [place] [address]DrMedardo Bowden Lymphocytes/100 WBC (Bld) 7.5 % Critically low 20.5-60.0 [facility] Comment on above: Performed By: #### C BC ####[facility] [address] [place] [address]DrMedardo Bowden MANUAL DIFF REQ NO Normal [facility] Comment on above: Performed By: #### C BC ####[facility] [address] [place] [address]DrMedardo Bowden MCH (RBC) [Entitic mass] 29.2 pg Normal 26.7-34.0 [facility] Comment on above: Performed By: #### C BC ####[facility] [address] [place] [address]DrMedardo Bowden MCHC (RBC) [Mass/Vol] 32.4 g/dL Normal 29.9-35.2 [facility] Comment on above: Performed By: #### C BC ####[facility] [address] [place] [address]DrMedardo Bowden MCV (RBC) [Entitic vol] 90.0 fL Normal 81.0-99.0 [facility] Comment on above: Performed By: #### C BC ####[facility] [address] [place] [address]Dr. Aixamegan Kal MONO # 1.0 103/ul Critically high 0.3-0.8 [facility] Comment on above: Performed By: #### C BC ####[facility] [address] [place] [address]Dr. Omid Bowden Monocytes/100 WBC (Bld) 6.8 % Normal 1.7-12.0 [facility] Comment on above: Performed By: #### C BC ####[facility] [address] [place] [address]Dr. Aixamegan Kal NEUT # 12.5 103/ul Critically high 1.4-6.5 [facility] Comment on above: Performed By: #### C BC ####[facility] [address] [place] [address]Dr. Omid Bowden Neutrophils/100 WBC (Bld) 81.7 % Critically high 43.0-75.0 [facility] Comment on above: Performed By: #### C BC ####[facility] [address] [place], [place] [address]Dr. Omid Bowden Platelet mean volume (Bld) [Entitic vol] 8.9 fL Critically low 9.5-13.5 [facility] Comment on above: Performed By: #### C BC ####[facility] [address] [place] [address]Dr. Omid Bowden PLT 252 103/ul Normal 150-450 [facility] Comment on above: Performed By: #### C BC ####[facility] [address] [place] [address]Dr. Omid Bowden RBC 4.01 106/ul Critically low 4.20-5.40 [facility] Comment on above: Performed By: #### C BC ####[facility] [address] [place] [address]Dr. Omid Bowden WBC 15.3 103/ul Critically high 4.0-11.0 [facility] Comment on above: Performed By: #### C BC ####[facility] [address] [place], [place] [address]SiDr. Omid Bowden IRONon 08-19-2022 Iron [Mass/Vol] 59.0 ug/dL Normal 50.0-170.0 [facility] Comment on above: Performed By: #### H GB #### [facility] [address] [place], [place] [address] Dr. Omid Bowden MAMMO POST BIOPSY RIGHTon MAMMO POST BIOPSY RIGHT Patient: HARMAN MCLEOD Exam Date: 08/19/2022 : 1940 Gender:F Ordering : DR MATEUS PERRY . Admission #: [id number] Family : Order #: [id number] CLICK HERE TO VIEW EXAM This report includes an Addendum and supersedes previous reports for this exam. RADIOLOGY REPORT PROCEDURE: MAMMOGRAM POST BIOPSY IMAGES COMPARISON: MG MAMM RT DIAG , 08/08/2022. INDICATIONS: Mammographic mass of right breast BREAST COMPOSITION: Scattered areas fibroglandular density. FINDINGS: BIOPSY MARKER: A metallic marker has been placed in the targeted location within the upper outer quadrant of the anterior right breast. BREAST FINDINGS: Is adjacent to the targeted mass Dictated by: Judson Bauman MD on 08/19/2022 at 10:44 Approved by: Judson Bauman MD on 08/19/2022 at 10:44 ADDENDUM: FINDINGS: DIAGNOSTIC CATEGORY 6--KNOWN BIOPSY PROVEN MALIGNANCY: RIGHT BREAST RECOMMENDATIONS: SURGICAL CONSULTATION. Dictated by: Judson Bauman MD on 09/06/2022 at 09:56 Approved by: Judson Bauman MD on 09/06/2022 at 09:57 Normal [facility] PROTIMEon 08-19-2022 INR Coag (PPP) [Relative time] 0.99 {INR} Normal [facility] Comment on above: Performed By: #### P T, PTT ####[facility] [address] [place], [place] [address]NmDr. Omid Bowden INR GUIDELINES SEE BELOW Normal [facility] Comment on above: Result Comment: PERLITA RED INR: 2.0 - 3.0 CONDITIONS NOT LISTED BELOW 2.5 - 3.5 FOR PROSTHETIC HEART VALVE REPLACEMENT 2.5 - 3.5 RECURRENT THROMBOSIS Performed By: #### P T, PTT ####[facility] [address] [place], [place] [address]Zd. Omid Bowden PT Coag (PPP) [Time] 10.7 s Normal 9.0-11.6 [facility] Comment on above: Performed By: #### P T, PTT ####[facility] [address] [place], [place] [address]Ty. Omid Bowden PTTon 08-19-2022 aPTT Coag (Bld) [Time] 26.0 s Normal 22.3-36.2 [facility] Comment on above: Performed By: #### P T, PTT ####[facility] [address] [place], [place] [address]Bp. Omid Bowden US VAC ASST BX BRST RT W CLI [place] Maria 08-19-2022 US VAC ASST BX BRST RT W CLIP Patient: HARMAN MCLEOD Exam Date: 08/19/2022 : 1940 Gender:F Ordering : DR MATEUS PERRY . Admission #: [id number] Family : Order #: [id number] CLICK HERE TO VIEW EXAM This report includes an Addendum and supersedes previous reports for this exam. RADIOLOGY REPORT PROCEDURE: ULTRASOUND BIOPSY VACCUUM ASSISTED RIGHT WITH CLIP COMPARISON: None. INDICATIONS: Mammographic mass of right breast DESCRIPTION: After obtaining informed consent, a vacuum assisted ultrasound-guided biopsy was performed in the usual sterile manner. The location of the biopsy was then marked as indicated below. FINDINGS: RECOMMENDATIONS: SPECIMEN #, LOCATION: 9 o'clock right breast mass, 7 samples BIOPSY NEEDLE: 13 gauge Elite (r) vacuum core biopsy needle. MARKERS(S) PLACED: A single metallic marker was placed in the appropriate targeted location. MEDICATION: 2 cubic cm buffered lidocaine without epinephrine superficial, 8 cubic cm Buffered 1% lidocaine with epinephrine administered deep. COMPLICATIONS: None. PATHOLOGY LAB: Pending. CONCLUSION: 1. Uneventful ultrasound-guided breast biopsy. 2. Pathology results are pending. An addendum to this report will be provided after pathology results are available. 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 Pathology report faxed to Dr. Perry August 24, 2022 and confirmed with Mylene by telephone Dictated by: Judson Bauman MD on 09/06/2022 at 09:55 Approved by: Judson aBuman MD on 09/06/2022 at 09:55 Normal [facility] CULTURE URINEon 08-16-2022 CULTURE URINE Isolate 1 Enterococcus faecalis 100,000 cfu/mL of ORGANISM 1 Enterococcus faecalis ANTIBIOTIC M.I.C RX STATUS Beta-Lactamase Neg NEG F Benzylpenicillin 4 S F Ampicillin <=2 S F Gentamicin High Level (synergy) SYN-S S F Streptomycin High Level (synergy) SYN-R R F Ciprofloxacin >=8 R F Levofloxacin >=8 R F Quinupristin/Dalfopris tin 8 R F Linezolid 1 S F Vancomycin 1 S F Tetracycline >=16 R F Nitrofurantoin <=16 S F Normal [facility] Comment on above: Performed By: #### U RCX ####[facility] [address] [place] [address]Dr. Omid Bowden CARDIAC ADILIA ADMITon 022 CK [Catalytic activity/Vol] 128 U/L Normal 26-192 [facility] Comment on above: Performed By: #### L IPID, BMP #### [facility] [address] [address] [address] Omid Bowden CK.MB [Mass/Vol] 2.88 ng/mL Normal <=3.60 [facility] Comment on above: Performed By: #### L IPID, BMP #### [facility] [address] [address] [address] Omid Bowden HSTROP 24.1 pg/mL Normal 4.0-51.3 [facility] Comment on above: Result Comment: CUT- OFF POINTS HAVE BEEN ESTABLISHED BASED ON THE FOURTH UNIVERSAL DEFINITIONS OF MYOCARDIAL INFARCTION. THE UPPER REFERENCE LIMIT (URL) OF TROPONIN, DEFINED THE 99TH PERCENTILE OF cTnI DISTRIBUTION IN A REFERENCE POPULATION, HAS BEEN CONFIRMED THE DECISION THRESHOLD FOR AR DIAGNOSIS. Performed By: #### L IPID, BMP #### [facility] [address] [address] [address] Omid Bowden JACINTA 61 ng/mL Normal 9-82 [facility] Comment on above: Performed By: #### L IPID, BMP #### [facility] [address] [address] [address] Omid Bowden CBC AUTO DIFFon 08-14-2022 BASO # 0.0 103/ul Normal 0.0-0.1 [facility] Comment on above: Performed By: #### H GB #### [facility] [address] [address] [address] Omid Bowden Basophils/100 WBC (Bld) 0.4 % Normal 0.2-2.0 [facility] Comment on above: Performed By: #### H GB #### [facility] [address] [address] [address] Omid Bowden EO # 0.3 103/ul Normal 0.0-0.7 [facility] Comment on above: Performed By: #### H GB #### [facility] [address] [address] [address] Omid Bowden Eosinophils/100 WBC (Bld) 2.6 % Normal 0.9-7.0 [facility] Comment on above: Performed By: #### H GB #### [facility] [address] [address] [address] Omid Bowden Erythrocyte distribution width (RBC) [Ratio] 14.1 % Normal 11.0-15.0 [facility] Comment on above: Performed By: #### H GB #### [facility] [address] [address] [address] Omid Bowden Hematocrit (Bld) [Volume fraction] 35.5 % Critically low 36.0-48.0 [facility] Comment on above: Performed By: #### H GB #### [facility] [address] [address] [address] Omid Bowden Hemoglobin (Bld) [Mass/Vol] 11.6 g/dL Critically low 12.0-16.0 [facility] Comment on above: Performed By: #### H GB #### [facility] [address] [address] [address] Omid Bowden IG # 0.06 10e3/ul Critically high 0.00-0.03 [facility] Comment on above: Performed By: #### H GB #### [facility] [address] [address] [address] Omid Bowden IG % 0.6 % Critically high 0.0-0.5 [facility] Comment on above: Performed By: #### H GB #### [facility] [address] [address] [address] Omid Bowden LYMPH # 3.4 103/ul Normal 1.2-3.8 [facility] Comment on above: Performed By: #### H GB #### [facility] [address] [place] [address] Dr. Omid Bowden Lymphocytes/100 WBC (Bld) 35.5 % Normal 20.5-60.0 [facility] Comment on above: Performed By: #### H GB #### [facility] [address] [address] [address] Omid Bowden MANUAL DIFF REQ NO Normal [facility] Comment on above: Performed By: #### H GB #### [facility] [address] [place] [address] Dr. Omid Bowden MCH (RBC) [Entitic mass] 29.5 pg Normal 26.7-34.0 [facility] Comment on above: Performed By: #### H GB #### [facility] [address] [address] [address] Omid Bowden MCHC (RBC) [Mass/Vol] 32.7 g/dL Normal 29.9-35.2 [facility] Comment on above: Performed By: #### H GB #### [facility] [address] [address] [address] Omid Bowden MCV (RBC) [Entitic vol] 90.3 fL Normal 81.0-99.0 [facility] Comment on above: Performed By: #### H GB #### [facility] [address] [address] [address] Omid Bowden MONO # 1.0 103/ul Critically high 0.3-0.8 [facility] Comment on above: Performed By: #### H GB #### [facility] [address] [address] [address] Omid Bowden Monocytes/100 WBC (Bld) 10.5 % Normal 1.7-12.0 [facility] Comment on above: Performed By: #### H GB #### [facility] [address] [address] [address] Omid Bowden NEUT # 4.8 103/ul Normal 1.4-6.5 [facility] Comment on above: Performed By: #### H GB #### [facility] [address] [place] [address] Dr. Omid Bowden Neutrophils/100 WBC (Bld) 50.4 % Normal 43.0-75.0 [facility] Comment on above: Performed By: #### H GB #### [facility] [address] [address] [address] Omid Bowden Platelet mean volume (Bld) [Entitic vol] 9.1 fL Critically low 9.5-13.5 [facility] Comment on above: Performed By: #### H GB #### [facility] [address] [address] [address] Omid Bowden PLT 276 103/ul Normal 150-450 [facility] Comment on above: Performed By: #### H GB #### [facility] [address] [address] [address] Omid Bowden RBC 3.93 106/ul Critically low 4.20-5.40 [facility] Comment on above: Performed By: #### H GB #### [facility] [address] [address] [address] Omid Bowden WBC 9.5 103/ul Normal 4.0-11.0 [facility] Comment on above: Performed By: #### H GB #### [facility] [address] [address] [address] Omid Bowden ER URINE PROFILEon 2 Bilirubin Ql (U) Negative Normal NEGATIVE [facility] Comment on above: Performed By: #### U MICRO, ERUR ####[facility] [address] [address]Dr. Omid Bowden Clarity (U) CLEAR Normal CLEAR [facility] Comment on above: Performed By: #### U MICRO, ERUR ####[facility] [address] [place], [place] [address]Dr. Omid Bowden Color (U) LT. YELLOW Normal YELLOW [facility] Comment on above: Performed By: #### U MICRO, ERUR ####[facility] [address] [place], [place] [address]Dr. Omid Bowden ERUAHD A micrscopic examination will be performed if indicated. Normal [facility] Comment on above: Performed By: #### U MICRO, ERUR ####[facility] [address] [place], [place] [address]Dr. Omid Bowden Glucose Ql (U) Negative Normal NEGATIVE [facility] Comment on above: Performed By: #### U MICRO, ERUR ####[facility] [address] [place], [place] [address]Dr. Omid Bowden Hemoglobin Ql (U) Negative Normal NEGATIVE [facility] Comment on above: Performed By: #### U MICRO, ERUR ####[facility] [address] [place], [place] [address]Dr. Omid Bowden Ketones Ql (U) Negative Normal NEGATIVE [facility] Comment on above: Performed By: #### U MICRO, ERUR ####[facility] [address] [place], [place] [address]Dr. Omid Bowden LEUKOCYTES TRACE Abnormal NEGATIVE [facility] Comment on above: Performed By: #### U MICRO, ERUR ####[facility] [address] [place], [place] [address]Dr. Omid Bowden Nitrite Ql (U) Negative Normal NEGATIVE [facility] Comment on above: Performed By: #### U MICRO, ERUR ####[facility] [address] [address]Dr. Omid Bowden pH (U) 6.0 [pH] Normal 5-9 [facility] Comment on above: Performed By: #### U MICRO, ERUR ####[facility] [address] [address]Dr. Omid Bwoden SPEC GRAVITY 1.020 Normal 1.005-<=1.0 25 [facility] Comment on above: Performed By: #### U MICRO, ERUR ####[facility] [address] [address]Dr. Omid Bowden UA PROTEIN Negative Normal NEGATIVE/ TRACE [facility] Comment on above: Performed By: #### U MICRO, ERUR ####[facility] [address] [address]Dr. Omid Bowden UR MICRO IND INDICATED Normal [facility] Comment on above: Performed By: #### U MICRO, ERUR ####[facility] [address] [address]Dr. Omid Bowden Urobilinogen Qn (U) 0.2 {Jose'U}/dL Normal 0.2 - 1. 0 [facility] Comment on above: Performed By: #### U MICRO, ERUR ####[facility] [address] [place], [place] [address]Dr. Omid Bowden OCC BLD IMMUNO SCREENon OCCULT BLOOD Negative Normal NEGATIVE [facility] Comment on above: Performed By: #### O BSCRN #### [facility] [address] [place] [address] Dr. Omid Bowden PROF CHEM 8 (BAS METB)on Anion gap [Moles/Vol] 5.5 mmol/L Normal [facility] Comment on above: Performed By: #### L IPID, BMP #### [facility] [address] [place] [address] Dr. Omid Bowden Calcium [Mass/Vol] 8.6 mg/dL Normal 8.5-10.1 [facility] Comment on above: Performed By: #### L IPID, BMP #### [facility] [address] [address] [address] Omid Bowden Chloride [Moles/Vol] 103 mmol/L Normal 98-107 [facility] Comment on above: Performed By: #### L IPID, BMP #### [facility] [address] [address] [address] Omid Bowden CO2 [Moles/Vol] 31.8 mmol/L Normal 21.0-32.0 [facility] Comment on above: Performed By: #### L IPID, BMP #### [facility] [address] [address] [address] Omid Bowden Creatinine [Mass/Vol] 0.99 mg/dL Normal 0.55-1.02 [facility] Comment on above: Performed By: #### L IPID, BMP #### [facility] [address] [address] [address] Omid Bowden EGFR-AF SWAZI >60 Normal >=60 [facility] Comment on above: Performed By: #### L IPID, BMP #### [facility] [address] [address] [address] Omid Bowden EGFR-NON AF SWAZI 54 mL/min/1.73m2 Critically low >=60 [facility] Comment on above: Performed By: #### L IPID, BMP #### [facility] [address] [address] [address] Omid Bowden Glucose [Mass/Vol] 112 mg/dL Critically high 74-106 [facility] Comment on above: Performed By: #### L IPID, BMP #### [facility] [address] [address] [address] Omid Bowden Potassium [Moles/Vol] 3.3 mmol/L Critically low 3.5-5.1 [facility] Comment on above: Performed By: #### L IPID, BMP #### [facility] [address] [address] [address] Omid Bowden Sodium [Moles/Vol] 137 mmol/L Normal 136-145 [facility] Comment on above: Performed By: #### L IPID, BMP #### [facility] [address] [address] [address] Omid Bowden Urea nitrogen [Mass/Vol] 20.0 mg/dL Critically high 7.0-18.0 [facility] Comment on above: Performed By: #### L IPID, BMP #### [facility] [address] [address] [address] Omid Bowden Urea nitrogen/Creatinine [Mass ratio] 20.2 mg/mg Normal [facility] Comment on above: Performed By: #### L IPID, BMP #### [facility] [address] [address] [address] Omid Bowden URINE MICROSCOPIC ONLYon BACTERIA TRACE Abnormal NONE SEEN [facility] Comment on above: Performed By: #### U MICRO, ERUR ####[facility] [address] [address]Dr. Omid Bowden Bacteria identified Cx Nom (U) INDICATED Normal [facility] Comment on above: Performed By: #### U MICRO, ERUR ####[facility] [address] [address]DrMedardo Bowden CAST NONE SEEN Normal NONE SEEN [facility] Comment on above: Performed By: #### U MICRO, ERUR ####[facility] [address] [address]Dr. Omid Bowden Crystals LM Nom (Urine sed) NONE SEEN Normal NONE SEEN [facility] Comment on above: Performed By: #### U MICRO, ERUR ####[facility] [address] [address]Dr. Omid Bowden Epithelial cells LM Ql (Urine sed) FEW Abnormal NONE SEEN /RARE [facility] Comment on above: Performed By: #### U MICRO, ERUR ####[facility] [address] [address]DrMedardo Bowden MUCOUS NONE SEEN Normal NONE SEEN [facility] Comment on above: Performed By: #### U MICRO, ERUR ####[facility] [address] [place], [place] [address]Cy. Omid Bowden RBC 0-2 Normal 0-2 [facility] Comment on above: Performed By: #### U MICRO, ERUR ####[facility] [address] [place], [place] [address]Du. Omid Bowden WBC 20-50 Abnormal NONE SEEN [facility] Comment on above: Performed By: #### U MICRO, ERUR ####[facility] [address] [place], [place] [address]Gb. Omid Bowden XR CHEST 1 Von 08-14-2022 XR CHEST 1 V CHEST X-RAY HISTORY: Chest pain COMPARISON: 04/06/2021 TECHNIQUE: 1 view chest is submitted for review. FINDINGS: The lungs are adequately expanded without evidence for acute infiltrate or effusion. The cardiac silhouette is enlarged. Pulmonary vascularity is unremarkable. Osseous structures are within expected limits for patients age. . IMPRESSION: Cardiomegaly. Electronically authenticated by: HILL BAILON Date: 2022-08-14 00:46 Normal [facility] Covid-19 PCR (CVDTBH)on SARS-CoV-2 (COVID-19) RNA MARII+probe Ql (Unsp spec) Not detected Normal NOT DETECTED [facility] Comment on above: Result Comment: When diagnostic testing is negative, the possibility of a false negative should be considered in the context of a patient's recent exposures and the presence of clinical signs and symptoms consistent with SARS-CoV-2. This test is not yet approved or cleared by the [place] FDA. When there are no FDA-approved or cleared tests available, and other criteria are met, FDA can make tests available under an emergency access mechanism called an Emergency Use Authorization (EUA). The EUA for this test is supported by the [place] of Health and Human Service's declaration that circumstances exist to justify the emergency use of in vitro diagnostics for the detection and/or diagnosis of the virus that causes COVID-19. This EUA will remain in effect for the duration of the COVID-19 declaration justifying emergency of IVDs, unless it is terminated or revoked by the FDA (after which the test may no longer be used). Performed By: #### C VDTBH #### [facility] [address] [address] [address] Omid Bowden MG MAMM RT DIAG FUon 022 MG MAMM RT DIAG FU Patient: HARMAN MCLEOD Exam Date: 08/08/2022 : 1940 Gender:F Ordering : DR MATEUS PERRY . Admission #: [id number] Family : Order #: [id number] CLICK HERE TO VIEW EXAM RADIOLOGY REPORT PROCEDURE: MAMMOGRAM RIGHT DIAGNOSTIC DIGITAL FOLLOW UP, 08/08/2022, 14:00 ULTRASOUND BREAST RIGHT LIMITED, 08/08/2022, 14:40 COMPARISON: MG MAMM SCREEN 3D DAVID CAD, 07/19/2022. MG MAMM SCREEN 3D DAVID CAD, 01/26/2021. INDICATIONS: Mammography abnormal Calculator Name NCI Breast Cancer Risk Assessment Tool 5 Year Breast Cancer Risk 7.50% Lifetime Breast Cancer Risk 12.10% Personal Breast Cancer No Personal Ovarian Cancer No Treatments None Family Cancers Sister with breast cancer at age 77; Daughter with breast cancer at age 35; Daughter with uterine cancer at age 37. LOCATION: [facility] BREAST COMPOSITION: Scattered areas fibroglandular density. FINDINGS: DIAGNOSTIC CATEGORY 5--HIGHLY SUGGESTIVE OF MALIGNANCY. HIGH PROBABILITY OF MALIGNANCY BASED ON THE FOLLOWING: RIGHT BREAST: Spot magnification views demonstrate an 8 mm poorly defined mass within the anterior upper-outer quadrant, approximately 9 -10 o'clock. Ultrasound evaluation demonstrates a 10 x 9 x 9 mm geographic shaped hypoechoic mass with irregular margins, posterior shadowing, and feeder vessels suspicious for malignancy. Ultrasound-guided tissue sampling is recommended. Our radiology department nurse is working with the patient to schedule biopsy. RECOMMENDATIONS: ULTRASOUND-GUIDED CORE BIOPSY: RIGHT BREAST PLEASE NOTE: A NORMAL MAMMOGRAM DOES NOT EXCLUDE THE POSSIBILITY OF BREAST CANCER. A CLINICALLY SUSPICIOUS PALPABLE LUMP SHOULD BE BIOPSIED. Dictated by: Alfonso George M.D. on 08/08/2022 at 15:19 Approved by: Alfonso George M.D. on 08/08/2022 at 15:28 Normal [facility] PROF CHEM 8 (BAS METB)on Anion gap [Moles/Vol] 9.3 mmol/L Normal [facility] Comment on above: Performed By: #### B MP #### [facility] [address] [address] [address] Omid Bowden Calcium [Mass/Vol] 8.1 mg/dL Critically low 8.5-10.1 [facility] Comment on above: Performed By: #### B MP #### [facility] [address] [address] [address] Omid Bowden Chloride [Moles/Vol] 100 mmol/L Normal 98-107 [facility] Comment on above: Performed By: #### B MP #### [facility] [address] [address] [address] Omid Bowden CO2 [Moles/Vol] 31.9 mmol/L Normal 21.0-32.0 [facility] Comment on above: Performed By: #### B MP #### [facility] [address] [address] [address] Omid Bowden Creatinine [Mass/Vol] 1.25 mg/dL Critically high 0.55-1.02 [facility] Comment on above: Performed By: #### B MP #### [facility] [address] [address] [address] Omid Bowden EGFR-AF SWAZI 50 mL/min/1.73m2 Critically low >=60 [facility] Comment on above: Performed By: #### B MP #### [facility] [address] [address] [address] Omid Bowden EGFR-NON AF SWAZI 41 mL/min/1.73m2 Critically low >=60 [facility] Comment on above: Performed By: #### B MP #### [facility] [address] [address] [address] Omid Bowden Glucose [Mass/Vol] 215 mg/dL Critically high 74-106 [facility] Comment on above: Performed By: #### B MP #### [facility] [address] [address] [address] Omid Bowden Potassium [Moles/Vol] 3.2 mmol/L Critically low 3.5-5.1 [facility] Comment on above: Performed By: #### B MP #### [facility] [address] [place], [place] [address] Dr. Omid Bowden Sodium [Moles/Vol] 138 mmol/L Normal 136-145 [facility] Comment on above: Performed By: #### B MP #### [facility] [address] [place], [place] [address] Dr. Omid Bowden Urea nitrogen [Mass/Vol] 32.0 mg/dL Critically high 7.0-18.0 [facility] Comment on above: Performed By: #### B MP #### [facility] [address] [place], [place] [address] Dr. Omid Bowden Urea nitrogen/Creatinine [Mass ratio] 25.6 mg/mg Normal [facility] Comment on above: Performed By: #### B MP #### [facility] [address] [place], [place] [address] Dr. Omid Bowden US BREAST RIGHT LIMITEDon US BREAST RIGHT LIMITED Patient: HARMAN MCLEOD Exam Date: 08/08/2022 : 1940 Gender:F Ordering : DR MATEUS PERRY . Admission #: [id number] Family : Order #: [id number] CLICK HERE TO VIEW EXAM RADIOLOGY REPORT PROCEDURE: MAMMOGRAM RIGHT DIAGNOSTIC DIGITAL FOLLOW UP, 08/08/2022, 14:00 ULTRASOUND BREAST RIGHT LIMITED, 08/08/2022, 14:40 COMPARISON: MG MAMM SCREEN 3D DAVID CAD, 07/19/2022. MG MAMM SCREEN 3D DAVID CAD, 01/26/2021. INDICATIONS: Mammography abnormal Calculator Name NCI Breast Cancer Risk Assessment Tool 5 Year Breast Cancer Risk 7.50% Lifetime Breast Cancer Risk 12.10% Personal Breast Cancer No Personal Ovarian Cancer No Treatments None Family Cancers Sister with breast cancer at age 77; Daughter with breast cancer at age 35; Daughter with uterine cancer at age 37. LOCATION: [facility] BREAST COMPOSITION: Scattered areas fibroglandular density. FINDINGS: DIAGNOSTIC CATEGORY 5--HIGHLY SUGGESTIVE OF MALIGNANCY. HIGH PROBABILITY OF MALIGNANCY BASED ON THE FOLLOWING: RIGHT BREAST: Spot magnification views demonstrate an 8 mm poorly defined mass within the anterior upper-outer quadrant, approximately 9 -10 o'clock. Ultrasound evaluation demonstrates a 10 x 9 x 9 mm geographic shaped hypoechoic mass with irregular margins, posterior shadowing, and feeder vessels suspicious for malignancy. Ultrasound-guided tissue sampling is recommended. Our radiology department nurse is working with the patient to schedule biopsy. RECOMMENDATIONS: ULTRASOUND-GUIDED CORE BIOPSY: RIGHT BREAST PLEASE NOTE: A NORMAL MAMMOGRAM DOES NOT EXCLUDE THE POSSIBILITY OF BREAST CANCER. A CLINICALLY SUSPICIOUS PALPABLE LUMP SHOULD BE BIOPSIED. Dictated by: Alfonso George M.D. on 08/08/2022 at 15:19 Approved by: Alfonso George M.D. on 08/08/2022 at 15:28 Normal [facility] CALCIUMon 08-02-2022 Calcium [Mass/Vol] 8.9 mg/dL Normal 8.5-10.1 [facility] Comment on above: Performed By: #### H GB #### [facility] [address] [address] [address] Omid Bowden CREATININEon 08-02-2022 Creatinine [Mass/Vol] 1.19 mg/dL Critically high 0.55-1.02 [facility] Comment on above: Performed By: #### H GB #### [facility] [address] [address] [address] Omid Bowden EGFR-AF SWAZI 53 mL/min/1.73m2 Critically low >=60 [facility] Comment on above: Performed By: #### H GB #### [facility] [address] [address] [address] Omid Bowden EGFR-NON AF SWAZI 44 mL/min/1.73m2 Critically low >=60 [facility] Comment on above: Performed By: #### H GB #### [facility] [address] [address] [address] Omid Bowden MG MAMM SCREEN 3D DAVID CADon 07-19-2022 MG MAMM SCREEN 3D DAVID CAD Patient: HARMAN MCLEOD Exam Date: 07/19/2022 : 1940 Gender:F Ordering : DR MATEUS PERRY . Admission #: [id number] Family : Order #: [id number] CLICK HERE TO VIEW EXAM RADIOLOGY REPORT PROCEDURE: MAMMOGRAM SCREENING 3D BILATERAL CAD COMPARISON: MG MAMM LT DIAG W CAD, 01/23/2020. MG MAMM SCREEN 3D DAVID CAD, 01/26/2021. INDICATIONS: Screening mammography Calculator Name NCI Breast Cancer Risk Assessment Tool 5 Year Breast Cancer Risk 7.50% Lifetime Breast Cancer Risk 12.10% Personal Breast Cancer No Personal Ovarian Cancer No Treatments None Family Cancers Sister with breast cancer at age 77; Daughter with breast cancer at age 35; Daughter with uterine cancer at age 37. LOCATION: [facility] BREAST COMPOSITION: Scattered areas fibroglandular density. FINDINGS: DIAGNOSTIC CATEGORY 0--INCOMPLETE: NEED ADDITIONAL IMAGING EVALUATION. Scattered benign-appearing calcifications are present. RIGHT BREAST: Slight increase in size of a focal nodule now measuring 1.2 x 0.9 cm anterior breast, upper-outer quadrant. Spot imaging and ultrasound follow-up recommended. LEFT BREAST: No significant suspicious finding. RECOMMENDATIONS: ADDITIONAL MAMMOGRAPHIC VIEWS REQUIRED: RIGHT BREAST - spot compression ULTRASOUND: RIGHT BREAST PLEASE NOTE: A NORMAL MAMMOGRAM DOES NOT EXCLUDE THE POSSIBILITY OF BREAST CANCER. A CLINICALLY SUSPICIOUS PALPABLE LUMP SHOULD BE BIOPSIED. Dictated by: Judson Bauman MD on 07/20/2022 at 07:30 Approved by: Judson Bauman MD on 07/20/2022 at 07:33 Normal [facility] XR DEXA BONE DENSITYon 07-19 XR DEXA BONE DENSITY EXAMINATION: XR DEX A BONE DENSITY, 07/19/2022 2:47 PM EST HISTORY: Senile osteoporosis COMPARISON: 2009 TECHNIQUE: Dual-energy X-ray absorptiometry (DEXA) bone density study performed for the axial skeleton. FINDINGS: Bone mineral the AP spine L2-L4 measures 1.628 g/sq cm. T score 3.6. WHO classification: Normal Bone mineral density right femoral neck measures 0.579 g/sq cm. T score -3.3. WHO classification: Osteoporosis IMPRESSION: Osteoporosis. High fracture risk Electronically authenticated by: JUDSON BAUMAN Date: 2022-07-19 20:17 Normal [facility] CALCIUM, IONIC (POC)on 06-28 POC Ionized Calcium 1.21 mmol/L 1.15 - 1 .33 mmol/L [employer] CHLORIDE (POC)on 06-28-2022 Chloride [Moles/Vol] 103 mmol/L 98 - 10 7 mmol/L [employer] [facility] Creatinine W/GFR Point of Ca reon 06-28-2022 Creatinine [Mass/Vol] 0.93 mg/dL 0.51 - 1.19 mg/dL [facility] eGFR, POC mL/min/1.73 m2 [facility] Comment on above: Effective Jun 13, 2022 These results are not intended for use in patients <18 years of age. eGFR results are calculated without a race factor using the 2020 CKD-EPI equation. Careful clinical correlation is recommended, particularly when comparing to results calculated using previous equations. The CKD-EPI equation is less accurate in patients with extremes of muscle mass, extra-renal metabolism of creatine, excessive creatine ingestion, or following therapy that affects renal tubular secretion. Lactic Acid, POCon POC Lactic Acid 1.56 mmol/L High 0.56 - 1.39 mmol/L [facility] No Panel Informationon 06-28 Interpretation and review of laboratory results Abnormal [facility] POC Glucose Fingerstickon Glucose [Mass/Vol] 135 mg/dL High 65 - 105 mg/dL [facility] Interpretation and review of laboratory results Abnormal [facility] POCT Glucoseon 06-28-2022 Glucose [Mass/Vol] 147 mg/dL High 74 - 100 mg/dL [facility] POCT urea (BUN)on 06-28-2022 Urea nitrogen [Mass/Vol] 20 mg/dL 8 - 26 mg/dL [facility] POTASSIUM (POC)on 06-28-2022 Potassium [Moles/Vol] 3.7 mmol/L 3.5 - 4.5 mmol/L [facility] SODIUM (POC)on 06-28-2022 Sodium [Moles/Vol] 141 mmol/L 138 - 146 mmol/L [facility] PROF CHEM 8 (BAS METB)on Anion gap [Moles/Vol] 9.0 mmol/L Normal [facility] Comment on above: Performed By: #### B MP ####[facility] [address] [place], [place] [address]CfMedardo Bowden Calcium [Mass/Vol] 9.0 mg/dL Normal 8.5-10.1 [facility] Comment on above: Performed By: #### B MP ####[facility] [address] [address]Dr. Omid Kal Chloride [Moles/Vol] 98 mmol/L Normal 98-107 [facility] Comment on above: Performed By: #### B MP ####[facility] [address] [id number]. Aixamegan Kal CO2 [Moles/Vol] 33.2 mmol/L Critically high 21.0-32.0 [facility] Comment on above: Performed By: #### B MP ####[facility] [address] [address]Dr. Omid Kal Creatinine [Mass/Vol] 1.32 mg/dL Critically high 0.55-1.02 [facility] Comment on above: Performed By: #### B MP ####[facility] [address] [place], [place] [address]Dr. Omid Bowden EGFR-AF SWAZI 47 mL/min/1.73m2 Critically low >=60 [facility] Comment on above: Performed By: #### B MP ####[facility] [address] [place], [place] [address]Dr. Omid Bowden EGFR-NON AF SWAZI 39 mL/min/1.73m2 Critically low >=60 [facility] Comment on above: Performed By: #### B MP ####[facility] [address] [address]Dr. Omid Bowden Glucose [Mass/Vol] 220 mg/dL Critically high 74-106 [facility] Comment on above: Performed By: #### B MP ####[facility] [address] [address]Dr. Omid Bowden Potassium [Moles/Vol] 3.2 mmol/L Critically low 3.5-5.1 [facility] Comment on above: Performed By: #### B MP ####[facility] [address] [address]Dr. Omid Bowden Sodium [Moles/Vol] 137 mmol/L Normal 136-145 [facility] Comment on above: Performed By: #### B MP ####[facility] [address] [place], [place] [address]Jd. Omid Bowden Urea nitrogen [Mass/Vol] 31.0 mg/dL Critically high 7.0-18.0 [facility] Comment on above: Performed By: #### B MP ####[facility] [address] [place], [place] [address]Oe. Omid Bowden Urea nitrogen/Creatinine [Mass ratio] 23.5 mg/mg Normal [facility] Comment on above: Performed By: #### B MP ####[facility] [address] [place], [place] [address]Pb. Omid Bowden ECHOCARDIO M/2D COMPLETEon 0 04-12-2022 ECHOCARDIO M/2D COMPLETE Patient: HARMAN MCLEOD Exam Date: 04/12/2022 : 1940 Gender:F Ordering : [facility] Admission #: [id number] Family : Order #: [id number] CLICK HERE TO VIEW EXAM ECHOCARDIOGRAM REPORT PROCEDURE: CARDIO PULMONARY ECHOCARDIO M/2D COMP INDICATIONS: Heart Murmur COMPARISON: None. DESCRIPTION: COMPLETE ECHOCARDIOGRAM Real-time transthoracic echocardiography with 2D, M-mode, spectral and color flow Doppler performed. QUALITY: Technical quality was good. LEFT VENTRICLE: Normal chamber size. Thickened septal wall. Mild concentric hypertrophy. Abnormal septal motion likely related to bundle branch block. Global left ventricular systolic function appears preserved. LV EF: Visual estimation of left ventricular ejection fraction is 55%. DIASTOLIC: Grade I diastolic dysfunction. ATRIAL SEPTUM: LEFT ATRIUM: Moderately enlarged. RIGHT ATRIUM: Mild dilatation. RIGHT VENTRICLE: Normal chamber size. Normal right ventricular systolic function. TRICUSPID VALVE: Normal mobility and thickness. No stenosis with trivial regurgitation. Mild pulmonary hypertension. RVSP 35 mmHg MITRAL VALVE: Normal mobility and thickness. No mitral valve prolapse. No evidence of mitral valve stenosis. Mild mitral annular calcification. Trivial mitral regurgitation. AORTIC VALVE: Normal trileaflet appearance. Mildly calcified aortic valve. Normal mobility. No aortic valve stenosis. No aortic regurgitation. AORTIC ROOT: Normal diameter and appearance. PULMONIC VALVE: Normal thickness and mobility. No stenosis. Trivial regurgitation. PERICARDIUM: No evidence of pericardial effusion. IVC: Collapses with inspirations. Normal size PLEURA: CONCLUSION: 1. Mild concentric left ventricular hypertrophy. Left ventricular systolic function is difficult to assess but appears preserved. LVEF is 55%. 2. Mild diastolic dysfunction. 3. Normal right ventricular systolic function. 4. Moderate left atrial dilatation. 5. No significant valvular dysfunction. 6. Mildly elevated right-sided pressures. Dictated by: Jose Maria Keyes M.D. on 04/12/2022 at 19:05 Approved by: Jose Maria Keyes M.D. on 04/12/2022 at 19:15 Normal [facility] PROF CHEM 8 (BAS METB)on Anion gap [Moles/Vol] 12.4 mmol/L [facility] Comment on above: Performed By: #### B MP ####[facility] [id number] [place] [address]Dr. Omid Bowden Calcium [Mass/Vol] 9.1 mg/dL Normal 8.5-10.1 [facility] Comment on above: Performed By: #### B MP ####[facility] [id number] [place] [address]Dr. Omid Bowden Chloride [Moles/Vol] 100 mmol/L Normal 98-107 [facility] Comment on above: Performed By: #### B MP ####[facility] [id number] [place] [address]Dr. Omid Bowden CO2 [Moles/Vol] 33.0 mmol/L Critically high 21.0-32.0 [facility] Comment on above: Performed By: #### B MP ####[facility] [id number] [place] [address]Dr. Omid Bowden Creatinine [Mass/Vol] 1.15 mg/dL Critically high 0.55-1.02 [facility] Comment on above: Performed By: #### B MP ####[facility] [address] [place] [address]Dr. Omid Bowden EGFR-AF SWAZI 55 mL/min/1.73m2 Critically low >=60 [facility] Comment on above: Performed By: #### B MP ####[facility] [address] [place] [id number]. Omid Bowden EGFR-NON AF SWAZI 46 mL/min/1.73m2 Critically low >=60 [facility] Comment on above: Performed By: #### B MP ####[facility] [id number] [place] [id number]. Omid Bowden Glucose [Mass/Vol] 167 mg/dL Critically high 74-106 T [facility] Comment on above: Performed By: #### B MP ####[facility] [id number] [place] [id number]. Omid Bowden Potassium [Moles/Vol] 3.4 mmol/L Critically low 3.5-5.1 [facility] Comment on above: Performed By: #### B MP ####[facility] [id number] [place] [id number]. Omid Bowden Sodium [Moles/Vol] 142 mmol/L Normal 136-145 [facility] Comment on above: Performed By: #### B MP ####[facility] [address] [place] [id number]. Omid Bowden Urea nitrogen [Mass/Vol] 23.0 mg/dL Critically high 7.0-18.0 [facility] Comment on above: Performed By: #### B MP ####[facility] [address] [place] [id number]. Aixamegan Kal Urea nitrogen/Creatinine [Mass ratio] 20.0 mg/mg Normal [facility] Comment on above: Performed By: #### B MP ####[facility] [id number] [place], [place] [id number]. Omid Bowden SYMPTOMATIC COVID-19 ANTIGEN on 03-16-2022 EUA Statement SEE BELOW Normal [facility] Comment on above: Result Comment: This test has not been FDA cleared or approved, but has been authorized by the FDA under an Emergency Use Authorization (EUA) for use by authorized laboratories certified under CLIA that meet the requirements to perform moderate or high complexity testing. This test has been authorized only for the detection of proteins from SARS-CoV-2, not for any other viruses or pathogens. The emergency use of this test is authorized for the duration of the declaration that circumstances exist justifying the authorization of emergency use of in vitro diagnostic tests for detection and/or diagnosis of Covid-19 under section 564(b)(1) of the Act, 21 U.S.C. 360bbb-3(b)(1), unless the declaration is terminated or authorization is revoked sooner. Performed By: #### L IPID, BMP #### [facility] [address] [place] [address] Dr. Omid Bowden SARS-CoV-2 (COVID-19) RNA MARII+probe Ql (Unsp spec) Positive Critically abnormal NEGATIVE [facility] Comment on above: Performed By: #### L IPID, BMP #### [facility] [address] [place] [address] Dr. Omid Bowden HEMOGLOBINon 03-15-2022 Hemoglobin (Bld) [Mass/Vol] 12.3 g/dL Normal 12.0-16.0 [facility] Comment on above: Performed By: #### H GB #### [facility] [address] [place] [address] Dr. Omid Bowden BNPon 02-15-2022 Natriuretic peptide B (Bld) [Mass/Vol] 598.0 pg/mL Normal <=1,800.0 [facility] Comment on above: Performed By: #### L IPID, BMP #### [facility] [address] [place] [address] Dr. Omid Bowden PROF CHEM 8 (BAS METB)on Anion gap [Moles/Vol] 11.9 mmol/L [facility] Comment on above: Performed By: #### L IPID, BMP #### [facility] [address] [place] [address] Dr. mOid Bowden Calcium [Mass/Vol] 9.1 mg/dL Normal 8.5-10.1 [facility] Comment on above: Performed By: #### L IPID, BMP #### [facility] [address] [place] [address] Dr. Omid Bowden Chloride [Moles/Vol] 98 mmol/L Normal 98-107 [facility] Comment on above: Performed By: #### L IPID, BMP #### [facility] [address] [place] [address] Dr. Omid Bowden CO2 [Moles/Vol] 33.2 mmol/L Critically high 21.0-32.0 [facility] Comment on above: Performed By: #### L IPID, BMP #### [facility] [address] [place] [address] Dr. Omid Bowden Creatinine [Mass/Vol] 1.28 mg/dL Critically high 0.55-1.02 [facility] Comment on above: Performed By: #### L IPID, BMP #### [facility] [address] [place] [address] Dr. Omid Bowden EGFR-AF SWAZI 49 mL/min/1.73m2 Critically low >=60 [facility] Comment on above: Performed By: #### L IPID, BMP #### [facility] [address] [place] [address] Dr. Omid Bowden EGFR-NON AF SWAZI 40 mL/min/1.73m2 Critically low >=60 [facility] Comment on above: Performed By: #### L IPID, BMP #### [facility] [address] [place] [address] Dr. Omid Bowden Glucose [Mass/Vol] 182 mg/dL Critically high 74-106 [facility] Comment on above: Performed By: #### L IPID, BMP #### [facility] [address] [place] [address] Dr. Omid Bowden Potassium [Moles/Vol] 3.1 mmol/L Critically low 3.5-5.1 [facility] Comment on above: Performed By: #### L IPID, BMP #### [facility] [address] [place] [address] Dr. Omid Bowden Sodium [Moles/Vol] 140 mmol/L Normal 136-145 [facility] Comment on above: Performed By: #### L IPID, BMP #### [facility] [address] [address] [address] Omid Bowden Urea nitrogen [Mass/Vol] 30.0 mg/dL Critically high 7.0-18.0 [facility] Comment on above: Performed By: #### L AMBER HARDING #### [facility] [address] [place], [place] [address] Dr. Omid Bowden Urea nitrogen/Creatinine [Mass ratio] 23.4 mg/mg Normal [facility] Comment on above: Performed By: #### L MEHDI BMP #### [facility] [address] [place], [place] [address] Dr. Omid Bowden XR CHEST 2 Von 02-09-2022 XR CHEST 2 V EXAMINATION: XR CHES T 2 V HISTORY: Dyspnea , productive cough, recent bronchitis COMPARISON: XR chest 04/06/2021 FINDINGS: LUNGS: Hyperexpanded lungs without acute infiltrates or appreciable mass. VASCULATURE: No increased pulmonary vasculature. PLEURA: No pneumothorax, effusion, or pleural thickening. CARDIAC: Suspect mild cardiomegaly. MEDIASTINUM: No visible mass or adenopathy. BONES: No fracture or visible bone lesion. OTHER: Negative. IMPRESSION: 1. No acute cardiopulmonary process. Stable chest. 2. Hyperexpanded lungs suggestive COPD. Electronically authenticated by: ALFONSO GEORGE Date: 2022-02-09 11:53 Normal [facility] No Panel Informationon 12-13 [facility] POCT Glucoseon 12-13-2021 Glucose [Mass/Vol] 196 mg/dL High 74 - 100 mg/dL [facility] Interpretation and review of laboratory results Abnormal [facility] POTASSIUM (POC)on 12-13-2021 Potassium [Moles/Vol] 3.7 mmol/L 3.5 - 4.5 mmol/L [facility] TYPE AND SCREENon 12-10-2021 ABO/Rh Positive [facility] Arm Band Number [id number] [facility] Expiration Date 12/16/2021,2359 [facility] [employer] [facility] [employer] EKG 12 leadOrdered By: Dennis Garcia on 12-07-2021 Atrial Rate 66 BPM [facility] Work Phone: P Campbell 67 degrees [facility] Work Phone: P-R Interval [address] [facility] Work Phone: Q-T Interval 466 ms [facility] Work Phone: QRS Duration 150 ms [facility] Work Phone: QTc Calculation (Bazett) 488 ms [facility] Work Phone: R Campbell 32 degrees [facility] Work Phone: T Campbell [address] [facility] Work Phone: Ventricular Rate [address] [facility] [facility] Work Phone: [facility] Work Phone: EKG 12 leadon 12-07-2021 Sinus rhythm with Premature atrial complexes Left bundle branch block Abnormal ECG When compared with ECG of 12-MAY-2021 12:39, T wave inversion now evident in Inferior leads [facility] ST[facility]USE Dennis Garcia MD - 12/07/2021 Sinus rhythm with Premature atrial complexes Left bundle branch block Abnormal ECG When compared with ECG of 12-MAY-2021 12:39, T wave inversion now evident in Inferior leads [facility] [employer] Work Phone: CBC auto differentialon 11-10 Absolute Eos # 0.13 [facility] th Absolute Immature Granulocyte 0.12 [facility] [employer] Absolute Lymph # 3.18 [facility] alth [facility] [place] # 1.22 High [facility] [place] [facility] lt Basophils (Bld) [#/Vol] 0.05 10*3/uL [facility] Basophils/100 WBC (Bld) 0 % 0 - 2 % [facility] Eosinophils/100 WBC (Bld) 1 % 1 - 4 % [facility] Hematocrit (Bld) [Volume fraction] 38.4 % 36.3 - 47.1 % [facility] Hemoglobin.gastrointes tinal spec 1 Ql (Stl) 12.2 g/dL 11.9 - 15.1 g/dL [facility] Immature granulocytes/100 WBC (Bld) 1 % High [address] [facility] [employer] Interpretation and review of laboratory results Abnormal [facility] Lymphocytes/100 WBC (Bld) 25 % 24 - 43 % [facility] MCH (RBC) [Entitic mass] 29.9 pg 25.2 - 33.5 pg [facility] MCHC (RBC) [Mass/Vol] 31.8 g/dL 28.4 - 34.8 g/dL [facility] MCV (RBC) [Entitic vol] 94.1 fL 82.6 - 102.9 fL [facility] Monocytes/100 WBC (Bld) 10 % 3 - 12 % [facility] NRBC Automated 0.0 0.0 per 100 WBC [facility] Platelet distribution width (Bld) [Ratio] 14.5 % High 11.8 - 14.4 % [facility] Platelet mean volume (Bld) [Entitic vol] 10.1 fL 8.1 - 13.5 fL [facility] Platelets (Bld) [#/Vol] 266 10*3/uL [facility] RBC (Bld) [#/Vol] 4.08 10*6/uL 3.95 - 5.1 1 m/uL [facility] RBC (Bld) [#/Vol] ANISOCYTOSIS PRESENT [facility] Segmented neutrophils/100 WBC (Bld) 63 % 36 - 65 % [facility] Segs Absolute 7.88 [facility] W[facility] (Bld) [#/Vol] 12.6 10*3/uL High [facility] Comprehensive Metabolic Pane l w/ Reflex to MGon 12-06-2021 Albumin [Mass/Vol] 3.7 g/dL 3.5 - 5.2 g/dL [facility] Albumin/Globulin [Mass ratio] 1.1 {ratio} [facility] ALP (Bld) [Catalytic activity/Vol] 93 U/L 35 - 104 U/L [facility] ALT [Catalytic activity/Vol] 12 U/L 5 - 33 U/L [facility] Anion gap [Moles/Vol] 14 mmol/L 9 - 17 mmol/L [facility] AST [Catalytic activity/Vol] 12 U/L <32 [facility] Bilirubin [Mass/Vol] 0.25 mg/dL Low 0.3 - 1 .2 mg/dL [facility] Calcium [Mass/Vol] 9.1 mg/dL 8.6 - 10. 4 mg/dL [facility] Chloride [Moles/Vol] 95 mmol/L Low 98 - 10 7 mmol/L [facility] CO2 [Moles/Vol] 30 mmol/L 20 - 31 mmol/L [facility] Creatinine [Mass/Vol] 1.07 mg/dL High 0.50 - 0.90 mg/dL [facility] Free PSA/Total PSA [Mass fraction] 7.2 g/dL 6.4 - 8.3 g/dL [facility] GFR 60 mL/min Low >60 [facility] GFR Non- 49 mL/min Low >60 [facility] GFR/1.73 sq M.predicted MDRD (S/P/Bld) [Vol rate/Area] [facility] Comment on above: Average GFR for 70 o r more years old: 75 mL/min/1.73sq m Chronic Kidney Disease: <60 mL/min/1.73sq m Kidney failure: <15 mL/min/1.73sq m eGFR calculated using average adult body mass. Additional eGFR calculator available at: http://www.ARI/multiple_crcl_2012.htm Glucose [Mass/Vol] 188 mg/dL High 70 - 99 mg/dL [facility] Interpretation and review of laboratory results Abnormal [facility] Potassium [Moles/Vol] 3.3 mmol/L Low 3.7 - 5.3 mmol/L [facility] Sodium [Moles/Vol] 139 mmol/L 135 - 144 mmol/L [facility] Urea nitrogen (BldV) [Mass/Vol] 22 mg/dL 8 - 23 mg/dL [facility] Magnesiumon 12-06-2021 Magnesium [Mass/Vol] 1.6 mg/dL 1.6 - 2 .6 mg/dL [facility] No Panel Informationon 12-06 No acute process. [facility] RIS CONSOLIDATED EXAMINATION: TWO XRAY VIEWS OF THE CHEST 12/06/2021 3:53 pm COMPARISON: Chest radiograph of 05/12/2021 HISTORY: ORDERING SYSTEM PROVIDED HISTORY: Pre-op chest exam TECHNOLOGIST PROVIDED HISTORY: Reason for Exam: pre op vaginectomy, cysto. no chest complaints FINDINGS: The lungs are without acute focal process. There is no effusion or pneumothorax. The cardiomediastinal silhouette is without acute process. The osseous structures are without acute process. [facility] CONSOLIDATED Kael Freeman MD - 12/06/2021 EXAMINATION: TWO XRAY VIEWS OF THE CHEST 12/06/2021 3:53 pm COMPARISON: Chest radiograph of 05/12/2021 HISTORY: ORDERING SYSTEM PROVIDED HISTORY: Pre-op chest exam TECHNOLOGIST PROVIDED HISTORY: Reason for Exam: pre op vaginectomy, cysto. no chest complaints FINDINGS: The lungs are without acute focal process. There is no effusion or pneumothorax. The cardiomediastinal silhouette is without acute process. The osseous structures are without acute process. IMPRESSION: No acute process. [employer] Phone: Radiology Study observation (narrative) [employer] Phone: No Panel InformationOrdered By: Kael Freeman on 12-06-2021 [employer] Phone: Creatinine W/GFR Point of Ca reOrdered By: Kin Abarca on 06-15-2021 Creatinine [Mass/Vol] 0.89 mg/dL 0.51 - 1.19 mg/dL [employer] Phone: GFR Non- >60 >60 mL/min [employer] Phone: GFR/1.73 sq M.predicted MDRD (S/P/Bld) [Vol rate/Area] mL/min/{1.73_m2} >60 mL/min [employer] Phone: GFR/1.73 sq M.predicted MDRD (S/P/Bld) [Vol rate/Area] [employer] Phone: Comment on above: Average GFR for 70 o r more years old: 75 mL/min/1.73sq m Chronic Kidney Disease: <60 mL/min/1.73sq m Kidney failure: <15 mL/min/1.73sq m eGFR calculated using average adult body mass. Additional eGFR calculator available at: http://www.[employer]/multiple_crcl_2012.htm No Panel InformationOrdered By: Kin Abarca on 06-15-2021 [employer] Phone: POC Glucose FingerstickOrder ed By: Kin Abarca on 06-15-2021 Glucose [Mass/Vol] 163 mg/dL High 65 - 105 mg/dL [employer] Phone: Interpretation and review of laboratory results Abnormal [employer] Phone: [employer] Phone: POCT GlucoseOrdered By: Kin Abarca on 06-15-2021 Glucose [Mass/Vol] 186 mg/dL High 74 - 100 mg/dL [employer] Phone: Interpretation and review of laboratory results Abnormal [employer] Phone: POTASSIUM (POC)Ordered By: Yuriy Abarca on 06-15-2021 Potassium [Moles/Vol] 4.5 mmol/L 3.5 - 4.5 mmol/L [employer] Phone: EKG 12 leadOrdered By: Antoni Burks on 05-13-2021 Atrial Rate 67 BPM [employer] Phone: P Campbell 58 degrees [employer] Phone: P-R Interval 130 ms [employer] Phone: Q-T Interval 504 ms [employer] Phone: QRS Duration 144 ms [employer] Phone: QTc Calculation (Bazett) 532 ms [employer] Phone: R Campbell 20 degrees [employer] Phone: T Campbell 117 degrees [employer] Phone: Ventricular Rate 67 BPM [employer] Phone: Sinus rhythm with Premature atrial complexes Left bundle branch block Abnormal ECG No previous ECGs available [facility] Phone: Virgilio, [facility] Incoming E kg Results From [facility] - 05/13/2021 1:30 PM EDT Sinus rhythm with Premature atrial complexes Left bundle branch block Abnormal ECG No previous ECGs available [employer] Phone: [employer] Phone: Basic Metabolic Panel w/ Ref alexis to MGOrdered By: Latonia Burks on 05-12-2021 Anion gap [Moles/Vol] 13 mmol/L 9 - 17 mmol/L [employer] Phone: Calcium [Mass/Vol] 9.4 mg/dL 8.6 - 10. 4 mg/dL [employer] Phone: Chloride [Moles/Vol] 102 mmol/L 98 - 10 7 mmol/L [employer] Phone: CO2 [Moles/Vol] 28 mmol/L 20 - 31 mmol/L [employer] Phone: Creatinine [Mass/Vol] 0.94 mg/dL High 0.50 - 0.90 mg/dL [employer] Phone: GFR >60 >60 mL/min [employer] Phone: GFR Non- 58 mL/min Low >60 [employer] Phone: GFR/1.73 sq M.predicted MDRD (S/P/Bld) [Vol rate/Area] [employer] Phone: Comment on above: Average GFR for 70 o r more years old: 75 mL/min/1.73sq m Chronic Kidney Disease: <60 mL/min/1.73sq m Kidney failure: <15 mL/min/1.73sq m eGFR calculated using average adult body mass. Additional eGFR calculator available at: http://www.[employer]/multiple_crcl_2012.htm GFR/1.73 sq M.predicted MDRD (S/P/Bld) [Vol rate/Area] NOT REPORTED [employer] Phone: Glucose [Mass/Vol] 119 mg/dL High 70 - 99 mg/dL [employer] Phone: Interpretation and review of laboratory results Abnormal [employer] Phone: Potassium [Moles/Vol] 4.0 mmol/L 3.7 - 5.3 mmol/L [employer] Phone: Sodium [Moles/Vol] 143 mmol/L 135 - 144 mmol/L [employer] Phone: Urea nitrogen (BldV) [Mass/Vol] 18 mg/dL 8 - 23 mg/dL [employer] Phone: Urea nitrogen/Creatinine (Bld) [Mass ratio] NOT REPORTED [employer] Phone: [employer] Phone: CBC auto differentialOrdered By: Latonia Burks on 05-12-2021 Absolute Eos # 0.26 [facility] [facility] Work Phone: Absolute Immature Granulocyte 0.04 [facility] Work Phone: Absolute Lymph # 3.26 [facility] [facility] Work Phone: [facility] [place] # 0.84 [facility] [facility] Work Phone: Basophils (Bld) [#/Vol] 0.05 10*3/uL [facility] Work Phone: Basophils/100 WBC (Bld) 1 % 0 - 2 % [facility] Work Phone: Differential Type NOT REPORTED [employer] Phone: Eosinophils/100 WBC (Bld) 3 % 1 - 4 % [employer] Phone: Hematocrit (Bld) [Volume fraction] 36.9 % 36.3 - 47.1 % [employer] Phone: Hemoglobin.gastrointes tinal spec 1 Ql (Stl) 11.2 g/dL Low 11.9 - 15.1 g/dL [employer] Phone: Immature granulocytes/100 WBC (Bld) 0 % 0 [employer] Phone: Interpretation and review of laboratory results Abnormal [employer] Phone: Lymphocytes/100 WBC (Bld) 32 % 24 - 43 % [employer] Phone: MCH (RBC) [Entitic mass] 28.3 pg 25.2 - 33.5 pg [employer] Phone: MCHC (RBC) [Mass/Vol] 30.4 g/dL 28.4 - 34.8 g/dL [employer] Phone: MCV (RBC) [Entitic vol] 93.2 fL 82.6 - 102.9 fL [employer] Phone: Monocytes/100 WBC (Bld) 8 % 3 - 12 % [employer] Phone: NRBC Automated 0.0 0.0 per 100 WBC [employer] Phone: Platelet distribution width (Bld) [Ratio] 13.8 % 11.8 - 14.4 % [employer] Phone: Platelet Estimate NOT REPORTED [employer] Phone: Platelet mean volume (Bld) [Entitic vol] 9.5 fL 8.1 - 13.5 fL [employer] Phone: Platelets (Bld) [#/Vol] 310 10*3/uL [employer] Phone: RBC (Bld) [#/Vol] 3.96 10*6/uL 3.95 - 5.1 1 m/uL [employer] Phone: RBC (Bld) [#/Vol] NOT REPORTED [employer] Phone: Segmented neutrophils/100 WBC (Bld) 56 % 36 - 65 % [employer] Phone: Segs Absolute 5.70 [employer] Work Phone: WBC (Bld) [#/Vol] 10.2 10*3/uL [employer] Phone: WBC (Bld) [#/Vol] NOT REPORTED [employer] Phone: [employer] Phone: XR CHEST (2 VW)Ordered By: Joanie Burks on 05-12-2021 Senescent changes compatible with the age of the patient. No evidence of acute cardiopulmonary process. [employer] Phone: EXAMINATION: TWO XRA Y VIEWS OF THE CHEST 05/12/2021 1:20 pm COMPARISON: None. HISTORY: ORDERING SYSTEM PROVIDED HISTORY: Pre-op chest exam TECHNOLOGIST PROVIDED HISTORY: Reason for Exam: no chest complaints FINDINGS: The heart is within upper limits of normal for size. Suggestion of possible coronary artery graft over the right side of the heart. The aorta is mostly midline and contains some calcification. No evidence of pneumothorax, pleural effusion, infiltrate, or abnormal lung mass. There is minimal apical pleural thickening. There is flattening of the hemidiaphragms. Degenerative changes are present in the spine and visualized portions of the shoulders. [employer] Phone: Virgilio, [facility] Incoming Radiant Results From [employer] - 05/12/2021 2:48 PM EDT EXAMINATION: TWO XRAY VIEWS OF THE CHEST 05/12/2021 1:20 pm COMPARISON: None. HISTORY: ORDERING SYSTEM PROVIDED HISTORY: Pre-op chest exam TECHNOLOGIST PROVIDED HISTORY: Reason for Exam: no chest complaints FINDINGS: The heart is within upper limits of normal for size. Suggestion of possible coronary artery graft over the right side of the heart. The aorta is mostly midline and contains some calcification. No evidence of pneumothorax, pleural effusion, infiltrate, or abnormal lung mass. There is minimal apical pleural thickening. There is flattening of the hemidiaphragms. Degenerative changes are present in the spine and visualized portions of the shoulders. IMPRESSION: Senescent changes compatible with the age of the patient. No evidence of acute cardiopulmonary process. [employer] Phone: [employer] Phone: Cardiovascular Lab Reporton 08-21-2020 Cardiovascular Lab Report [facility] Patient Name: Harman [facility] Slim Coronel MR #: [id number] Department of Physician: Jose Maria Keyes M.D. Division of Service Date: 08/20/2020 Cardiology Birthdate: 1940 Adult Cardiovascular Room #: [facility] [address] [facility] [place] [address] Cardiovascular Laboratory Report INDICATION: The patient is a 79-year-old woman with paroxysmal atrial fibrillation and an elevated CHADS-VASc score of 7 due to age, female gender, hypertension, diastolic heart failure, vascular disease and diabetes. She requires long-term anticoagulation for stroke prevention, however, due to recurrent falls and nosebleed, she is not a good candidate for long-term anticoagulation. She had a shared decision making with her PCP, Dr. Mateus Perry and was referred for a Watchman procedure. Pre-procedural LAWRENCE showed that the left atrial appendage is adequate for implant and she was brought today for the procedure. PROCEDURES: 1. Aborted Watchman left atrial appendage occlusion procedure due to anatomy not conducive for implant. 2. Preclosure in the right common femoral vein. 3. Access in the right common femoral vein under ultrasound guidance. 4. Transseptal puncture under echocardiographic and fluoroscopic guidance. 5. Left atrial appendage angiogram. METHODS: The procedure was explained to the patient with risks and benefits. She signed informed consent. She was brought to supervisor laboratory animal facility in a fasting state. The procedure was performed under conscious sedation. A transesophageal echocardiogram was performed by Dr. Marisol Khoury at baseline. Please refer to his dictation for details. The appendage measured a maximum of 16 mm in terms of ostial width. Using ultrasound guidance and micropuncture technique, access was obtained in the right common femoral vein and a 6-Central African x 11 cm sheath was placed preclosure where the 6-Central African ProGlide device was performed followed by advancement of the transseptal SL1 sheath and dilator over the wire. A transseptal puncture was performed using a BRK-1 needle with a guidance from fluoroscopy and transesophageal echocardiography in a slightly posterior and inferior location across the septum. The transseptal sheath was advanced to the left atrial cavity. Note that, initially we gave 3000 units of heparin followed by full heparinization after gaining a left atrial access, and therapeutic ACT was confirmed during the rest of the procedure. An Amplatz Super Stiff exchange length wire was advanced to the left superior pulmonary vein. The transseptal sheath was exchanged over that wire to the 14-Central [place] Watchman access sheath, which was advanced to the left atrial cavity with no issues. The 6-Central African angled pigtail catheter was advanced over the wire and used to select the left atrial appendage. Left atrial appendage angiogram was performed in the right anterior oblique with caudal angulation view. At this time, based on angiographic and transesophageal echocardiography measurements, we proceeded with a 21 mm Watchman device. This was prepped using standard technique and deployed under fluoroscopic and echocardiographic guidance. Initially, the device appeared to be adequately compressed and in good position by angiography as well as by transesophageal echocardiography. A tug test was performed, however, we noticed that the device has fallen back out of the appendage a little bit and after further interrogation, the device appeared to be coming out of the left atrial appendage. After full interrogation of the device by angiography and transesophageal echocardiography, we decided to retrieve the device as it was not stable in the appendage. The device was recaptured fully and then removed out of the body. The transesophageal echocardiogram confirmed the absence of any effusion. Because of the anatomy not being conducive for implant, we decided against the additional trial. The Watchman access sheath was removed. Transesophageal echocardiography confirmed the absence of any effusion and the patient was stable. The previously placed Perclose sutures were tightened for adequate hemostasis in the right common femoral vein. The patient will be observed for 4 hours and then discharged to home. TOTAL FLUORO TIME: 7.34 minutes. TOTAL AIR KERMA: 694 mGy. TOTAL CONTRAST VOLUME: 50 mL. LEFT ATRIAL PRESSURE: 23 mmHg. RECOMMENDATIONS: 1. Continue current medical therapy. 2. The patient will be scheduled at a later date for the Watchman FLX device as the current anatomy is more appropriate for that device when it is available. Electronically Signed by: Jose Maria Keyes M.D. 08/28/2020 01:48 P Jose Maria Keyes M.D. Date Dict: 08/20/2020/01:26 P/Jose Maria Keyes M.D. Date Trans: (more content not included)... Normal The [facility] TYPE AND CROSSMATCHon 2019 ABO INTERPRETATION A [facility] Comment on above: Performed By: #### [id number] #### [facility] [address] [place] [address], [place] RH INTERPRETATION Positive Normal The [facility] Comment on above: Performed By: #### [id number] #### [facility] [address] [place] [address], [place] Vital Signs Date Time Vital Sign Value Performing Clinician Facility 06-20-2023 15:29-0400 Body height 154.9 cm Winnie Kaleigh PA-C Work Phone: [facility] 06-20-2023 15:29-0400 Body temperature 97.39 [degF] Winnie Kaleigh PA-C Work Phone: [facility] 06-20-2023 15:29-0400 Body weight 84.64 kg Winnie Kaleigh PA-C Work Phone: [facility] 06-20-2023 15:29-0400 Diastolic blood pressure 55 mm[Hg] Winnie Kaleigh PA-C Work Phone: [facility] 06-20-2023 15:29-0400 Heart rate 72 /min Winnie Kaleigh PA-C Work Phone: [facility] 06-20-2023 15:29-0400 Respiratory rate 16 /min Winnie Kaleigh PA-C Work Phone: [facility] 06-20-2023 15:29-0400 SaO2% (BldA) [Mass fraction] 96 % Winnie Kaleigh PA-C Work Phone: [facility] 06-20-2023 15:29-0400 Systolic blood pressure 138 mm[Hg] Winnie Guzmán PA-C Work Phone: [facility] 06-01-2023 08:45-0400 Body height 154.94 cm Christiano Gonzales Other [facility] Other 06-01-2023 08:45-0400 Body mass index (BMI) [Ratio] 34.57 kg/m2 Christiano Gonzales Other [facility] Other 06-01-2023 08:45-0400 Body temperature 97.8 [degF] Christiano Gonzales Other [facility] Other 06-01-2023 08:45-0400 Body weight 83.01 kg Christiano Gonzales Other [facility] Other 06-01-2023 08:45-0400 Diastolic blood pressure 72 mm[Hg] Christiano Gonzales Other [facility] Other 06-01-2023 08:45-0400 SaO2% (BldA) [Mass fraction] 93 % Christiano Gonzales Other [facility] Other 06-01-2023 08:45-0400 Systolic blood pressure 130 mm[Hg] Christiano Gonzales Other [facility] Other 03-09-2023 08:45-0400 Body height 154.94 cm Millie Storm Other [facility] Other 03-09-2023 08:45-0400 Body mass index (BMI) [Ratio] 34.57 kg/m2 Millie Storm Other [facility] Other 03-09-2023 08:45-0400 Body temperature 96.8 [degF] Millie Storm Other [facility] Other 03-09-2023 08:45-0400 Body weight 83.01 kg Millie Storm Other [facility] Other 03-09-2023 08:45-0400 Diastolic blood pressure 56 mm[Hg] Millie Storm Other [facility] Other 03-09-2023 08:45-0400 SaO2% (BldA) [Mass fraction] 97 % Millie Storm Other [facility] Other 03-09-2023 08:45-0400 Systolic blood pressure 118 mm[Hg] Millie Storm Other [facility] Other 02-14-2023 10:19-0400 Body height 154.9 cm Wallace Stone MD Work Phone: [facility] 02-14-2023 10:19-0400 Body temperature 97.39 [degF] Wallace Stone MD Work Phone: [facility] 02-14-2023 10:19-0400 Body weight 84.46 kg Wallace Stone MD Work Phone: [facility] 02-14-2023 10:19-0400 Diastolic blood pressure 90 mm[Hg] Wallace Stone MD Work Phone: [facility] 02-14-2023 10:19-0400 Heart rate 102 /min Wallace Stone MD Work Phone: [facility] 02-14-2023 10:19-0400 Respiratory rate 16 /min Wallace Stone MD Work Phone: [facility] 02-14-2023 10:19-0400 SaO2% (BldA) [Mass fraction] 95 % Wallace Stone MD Work Phone: [facility] 02-14-2023 10:19-0400 Systolic blood pressure 151 mm[Hg] Wallace Stone MD Work Phone: [facility] 12-07-2022 14:00-0400 Body height 154.94 cm Millie Storm Other [facility] Other 12-07-2022 14:00-0400 Body mass index (BMI) [Ratio] 35.71 kg/m2 Millie Storm Other [facility] Other 12-07-2022 14:00-0400 Body temperature 97.6 [degF] Millie Storm Other [facility] Other 12-07-2022 14:00-0400 Body weight 85.73 kg Millie Storm Other [facility] Other 12-07-2022 14:00-0400 Diastolic blood pressure 68 mm[Hg] Millie Storm Other [facility] Other 12-07-2022 14:00-0400 SaO2% (BldA) [Mass fraction] 93 % Millie Storm Other [facility] Other 12-07-2022 14:00-0400 Systolic blood pressure 116 mm[Hg] Millie Faganvane Other [facility] Other 11-29-2022 11:53-0400 Diastolic blood pressure 54 mm[Hg] MD Mateus Perry Work Phone: [facility] 11-29-2022 11:53-0400 Heart rate 67 /min MD Mateus Perry Work Phone: [facility] 11-29-2022 11:53-0400 Respiratory rate 16 /min MD Mateus Perry Work Phone: [facility] 11-29-2022 11:53-0400 SaO2% (BldA) [Mass fraction] 94 % MD Mateus Perry Work Phone: [facility] 11-29-2022 11:53-0400 Systolic blood pressure 141 mm[Hg] MD Mateus Perry Work Phone: [facility] 11-29-2022 09:13-0400 Body height 154.94 cm MD Mateus Perry Work Phone: [facility] 11-29-2022 09:13-0400 Body weight 81.64 kg MD Mateus Perry Work Phone: [facility] 11-23-2022 11:00-0400 Body height 154.94 cm Christiano Gonzales Other [facility] Other 11-23-2022 11:00-0400 Body temperature 97.8 [degF] Christiano Gonzales Other [facility] Other 11-23-2022 11:00-0400 Diastolic blood pressure 62 mm[Hg] Christiano Gonzales Other [facility] Other 11-23-2022 11:00-0400 SaO2% (BldA) [Mass fraction] 96 % Christiano Gonzales Other [facility] Other 11-23-2022 11:00-0400 Systolic blood pressure 110 mm[Hg] Christiano Gonzales Other [facility] Other 11-09-2022 13:44-0500 Body height 154.9 cm Wallace Stone MD Work Phone: [facility] 11-09-2022 13:44-0500 Body temperature 97.11 [degF] Wallace Stone MD Work Phone: [facility] 11-09-2022 13:44-0500 Body weight 84.73 kg Wallace Stone MD Work Phone: [facility] 11-09-2022 13:44-0500 Diastolic blood pressure 72 mm[Hg] Wallace Stone MD Work Phone: [facility] 11-09-2022 13:44-0500 Heart rate 66 /min Wallace Stone MD Work Phone: [facility] 11-09-2022 13:44-0500 Respiratory rate 18 /min Wallace Stone MD Work Phone: [facility] 11-09-2022 13:44-0500 SaO2% (BldA) [Mass fraction] 100 % Wallace Stone MD Work Phone: [facility] 11-09-2022 13:44-0500 Systolic blood pressure 142 mm[Hg] Wallace Stone MD Work Phone: [facility] 09-22-2022 11:24-0500 Body height 154.9 cm Wallace Stone MD Work Phone: [facility] 09-22-2022 11:24-0500 Body temperature 97.81 [degF] Wallace Stone MD Work Phone: [facility] 09-22-2022 11:24-0500 Body weight 84.82 kg Wallace Stone MD Work Phone: [facility] 09-22-2022 11:24-0500 Diastolic blood pressure 64 mm[Hg] Wallace Stone MD Work Phone: [facility] 09-22-2022 11:24-0500 Heart rate 70 /min Wallace Stone MD Work Phone: [facility] 09-22-2022 11:24-0500 Respiratory rate 16 /min Wallace Stone MD Work Phone: [facility] 09-22-2022 11:24-0500 SaO2% (BldA) [Mass fraction] 94 % Wallace Stone MD Work Phone: [facility] 09-22-2022 11:24-0500 Systolic blood pressure 137 mm[Hg] Wallace Stone MD Work Phone: [facility] 09-09-2022 15:06-0500 Blood Pressure Location Iliana GAGNON [facility] 09-09-2022 15:06-0500 Diastolic blood pressure 68 mm[Hg] Iliana DORANL [facility] 09-09-2022 15:06-0500 Heart rate 68 /min Iliana DORANL [facility] 09-09-2022 15:06-0500 Respiratory rate 16 /min Iliana DORANL [facility] 09-09-2022 15:06-0500 Systolic blood pressure 130 mm[Hg] Iliana DORANL [facility] 06-28-2022 12:00-0400 SaO2% (BldA) [Mass fraction] 95 % Emma Plunkett MD Work Phone: [facility] 06-28-2022 11:50-0400 Body temperature 97.3 [degF] Emma Plunkett MD Work Phone: [facility] 06-28-2022 11:50-0400 Diastolic blood pressure 50 mm[Hg] Emma Plunkett MD Work Phone: [facility] 06-28-2022 11:50-0400 Heart rate 69 /min Emma Plunkett MD Work Phone: [facility] 06-28-2022 11:50-0400 Respiratory rate 16 /min Emma Plunkett MD Work Phone: [facility] 06-28-2022 11:50-0400 Systolic blood pressure 115 mm[Hg] Emma Plunkett MD Work Phone: [facility] 06-28-2022 07:36-0400 Body height 154.9 cm Emma Plunkett MD Work Phone: [facility] 06-28-2022 07:36-0400 Body mass index (BMI) [Ratio] 34.58 kg/m2 Emma Plunkett MD Work Phone: [facility] 06-28-2022 07:36-0400 Body weight 83.01 kg Emma Plunkett MD Work Phone: [facility] 12-13-2021 15:45-0400 Body temperature 97 [degF] Emma Plunkett MD Work Phone: [facility] 12-13-2021 15:45-0400 Diastolic blood pressure 96 mm[Hg] Emma Plunkett MD Work Phone: [facility] 12-13-2021 15:45-0400 Heart rate 65 /min Emma Plunkett MD Work Phone: [facility] 12-13-2021 15:45-0400 Respiratory rate 14 /min Emma Plunkett MD Work Phone: [facility] 12-13-2021 15:45-0400 SaO2% (BldA) [Mass fraction] 94 % Emma Plunkett MD Work Phone: [facility] [employer] 12-13-2021 15:45-0400 Systolic blood pressure 113 mm[Hg] Emma Plunkett MD Work Phone: [facility] 12-13-2021 09:46-0400 Body height 154.9 cm Emma Plunkett MD Work Phone: [facility] 12-13-2021 09:46-0400 Body mass index (BMI) [Ratio] 36.09 kg/m2 Emma Plunkett MD Work Phone: [facility] 12-13-2021 09:46-0400 Body weight 86.64 kg Emma Plunkett MD Work Phone: [facility] 12-06-2021 14:46-0400 Body height 154.[address] 12-06-2021 14:46-0400 Body mass index (BMI) [Ratio] 36.09 kg/m2 [address] [employer] 12-06-2021 14:46-0400 Body temperature 96.4 [degF] [address] 12-06-2021 14:46-0400 Body weight 86.[address] 12-06-2021 14:46-0400 Diastolic blood pressure 67 mm[Hg] [address] 12-06-2021 14:46-0400 Heart rate 62 /min [address] 12-06-2021 14:46-0400 Respiratory rate 20 /min [address] 12-06-2021 14:46-0400 SaO2% (BldA) [Mass fraction] 97 % [address] 12-06-2021 14:46-0400 Systolic blood pressure 153 mm[Hg] [address] 06-15-2021 10:14-0400 Body temperature 97.81 [degF] Kin Abarca MD Work Phone: [facility] [employer] Work Phone: 06-15-2021 10:14-0400 Diastolic blood pressure 58 mm[Hg] Kin Abarca MD Work Phone: [facility] [employer] Work Phone: 06-15-2021 10:14-0400 Heart rate 61 /min Kin Abarca MD Work Phone: [facility] Work Phone: 06-15-2021 10:14-0400 Respiratory rate 14 /min Kin Abarca MD Work Phone: [facility] Work Phone: 06-15-2021 10:14-0400 SaO2% (BldA) [Mass fraction] 96 % Kin Abarca MD Work Phone: [facility] Work Phone: 06-15-2021 10:14-0400 Systolic blood pressure 113 mm[Hg] Kin Abarca MD Work Phone: [facility] Work Phone: 06-15-2021 08:24-0400 Body height 154.9 cm Kin Abarca MD Work Phone: [facility] Work Phone: 06-15-2021 08:24-0400 Body mass index (BMI) [Ratio] 34.96 kg/m2 Kin Abarca MD Work Phone: [facility] Work Phone: 06-15-2021 08:24-0400 Body weight 83.92 kg Kin Abarca MD Work Phone: [facility] Work Phone: 05-12-2021 12:53-0400 Body height 154.9 cm [facility] Work Phone: 05-12-2021 12:53-0400 Body mass index (BMI) [Ratio] 35.52 kg/m2 [facility] Work Phone: 05-12-2021 12:53-0400 Body temperature 96.8 [degF] [facility] Work Phone: 05-12-2021 12:53-0400 Body weight 85.28 kg [facility] Phone: 05-12-2021 12:53-0400 Diastolic blood pressure 66 mm[Hg] [facility] Phone: 05-12-2021 12:53-0400 Heart rate 57 /min [facility] Phone: 05-12-2021 12:53-0400 Respiratory rate 18 /min [facility] Phone: 05-12-2021 12:53-0400 SaO2% (BldA) [Mass fraction] 96 % [facility] Phone: 05-12-2021 12:53-0400 Systolic blood pressure 150 mm[Hg] [facility] Phone: Encounters Encounter Date Encounter Type Care Provider Facility Start: 06-20-2023 End: 06-20-2023 ambulatory WINNIE GUZMÁN Facility:[facility] Start: 06-20-2023 End: 06-20-2023 ambulatory Winnie Guzmán PA-C Work Phone: Hematology/Oncology Comment on above: 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, estrogen receptor positive (HCC) (Primary Dx); Stage 3a chronic kidney disease (HCC) Start: 06-20-2023 End: 06-20-2023 Patient encounter procedure Winnie Guzmán PA-C Work Phone: [facility] Start: 06-01-2023 End: 06-01-2023 ambulatory Christiano Gonzales Other [facility] Other Start: 06-01-2023 Office outpatient vi sit 15 minutes Christiano Gonzales [facility] Start: 04-06-2023 End: 04-07-2023 ambulatory MATEUS Hoa Hui [facility] Start: 03-20-2023 End: 03-20-2023 ambulatory [facility] Start: 03-09-2023 End: 03-09-2023 ambulatory Millie Faganvane Other [facility] Other Start: 03-09-2023 Patient encounter procedure Millie Faganvane [facility] Start: 03-06-2023 End: 03-06-2023 ambulatory EMMA GARZA V [facility] Start: 02-14-2023 End: 02-14-2023 ambulatory WALLACE STONE Facility:[facility] Start: 02-14-2023 End: 02-14-2023 ambulatory Wallace Stone MD Work Phone: Hematology/Oncology Comment on above: 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, estrogen receptor positive (HCC) (Primary Dx); Rash; Other eczema; Stage 3a chronic kidney disease (HCC) Start: 02-14-2023 End: 02-14-2023 Patient encounter procedure Wallace Stone MD Work Phone: [place] Start: 01-19-2023 End: 01-19-[address] MATEUS PERRY . Facility: Start: 12-08-2022 End: 12-08-2022 ambulatory Millie Faganvane Other [facility] Other Start: 12-08-2022 Telephone encounter Millie Faganvane [facility] Start: 12-07-2022 End: 12-07-2022 ambulatory Millie Emeterio Other [facility] Other Start: 12-07-2022 Patient encounter procedure Millie Emeterio [facility] Start: 11-29-2022 End: 11-29-2022 ambulatory Mateus Perry Facility:[facility] Start: 11-29-2022 End: 11-29-2022 Admission to same day surgery center MD Mateus Perry Work Phone: [facility] Work Phone: Start: 11-29-2022 End: 11-29-2022 ambulatory MD Mateus Perry Work Phone: [facility] Work Phone: Start: 11-24-2022 End: 11-25-2022 ambulatory LATONIA BRUSH [facility] Start: 11-24-2022 End: 11-24-2022 Subsequent hospital visit by physician Mateus Perry MD Work Phone: [facility] Start: 11-23-2022 End: 11-23-2022 ambulatory Christiano Gonzales Other [facility] Other Start: 11-23-2022 Office outpatient ne w 60 minutes Christiano Gonzales [facility] Vascular Surgery Start: 11-22-2022 End: 11-23-2022 ambulatory Iliana GAGNON Facility:[facility] Start: 11-16-2022 End: 11-16-[address] MATEUS PERRY . Facility: Start: 11-09-2022 End: 11-09-2022 ambulatory Wallace Stone MD Work Phone: Hematology/Oncology Comment on above: 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, estrogen receptor positive (HCC) (Primary Dx); Claudication in peripheral vascular disease (HCC) Start: 11-09-2022 End: 11-09-2022 Patient encounter procedure Wallace Stone MD Work Phone: [place] Start: 11-09-2022 Telephone encounter [facility] carolina [facility] Comment on above: Referral Information (Vascular Consult) Start: 11-08-2022 End: 11-09-2022 ambulatory Iliana GAGNON Facility:[facility] Start: 11-08-2022 End: 11-08-2022 Patient encounter procedure Iliana GAGNON General Surgery [facility] [place] Start: 11-04-2022 End: 11-05-2022 ambulatory Iliana GAGNON Facility:[facility] Start: 11-04-2022 End: 11-04-2022 Patient encounter procedure Iliana GAGNON General Surgery [facility] [place] Start: 11-02-2022 End: 11-03-[address] MATEUS PERRY . Facility: Start: 10-25-2022 End: 10-26-2022 ambulatory Iliana GAGNON Facility:[facility] Start: 10-25-2022 End: 10-25-2022 Patient encounter procedure Iliana GAGNON General Surgery [facility] Start: 10-19-2022 End: 10-20-[address] ILIANA GAGNON . Facility: Start: 10-15-[address] ILIANA GAGNON . Facil ity: Start: 10-12-2022 Encounter for preprocedural laboratory examination DR ILIANA GAGNON . [facility] Start: 10-11-2022 End: 10-12-[address] ILIANA GAGNON . Facility: Start: 10-11-2022 End: 10-12-2022 Encounter for preprocedural laboratory examination DR ILIANA GAGNON . Facility: Start: 09-30-2022 End: 10-01-[address] MATEUS PERRY . Facility: Start: 09-22-2022 Telephone encounter Lars Wilkerson RN Work Phone: Hematology/Oncology Comment on above: Care Coordination (S urgery update) Start: 09-22-2022 End: 09-22-2022 ambulatory WALLACE STONE Facility:[facility] Start: 09-22-2022 End: 09-22-2022 ambulatory Wallace Stone MD Work Phone: Hematology/Oncology Comment on above: 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, estrogen receptor positive (HCC) (Primary Dx) Start: 09-22-2022 End: 09-22-2022 Patient encounter procedure Wallace Stone MD Work Phone: [facility] Comment on above: Malignant neoplasm o f upper-outer quadrant of right breast in female, estrogen receptor positive (HCC) (Primary Dx) Start: 09-21-2022 End: 09-21-[address] MATEUS PERRY . Facility:[facility] Start: 09-19-2022 Chart abstracting Wallace messer MD Work Phone: Hematology/Oncology Start: 09-16-2022 End: 09-17-[address] DOCTOR SPEAR Facility:[facility] Start: 09-09-2022 End: 09-10-2022 ambulatory Iliana GAGNON Facility: [place] Start: 09-09-2022 End: 09-09-2022 Patient encounter procedure Iliana GAGNON General Surgery [facility] [place] Start: 09-05-[address] MATEUS PERRY . Facili ty:[facility] Start: 08-23-2022 End: 08-23-[address] MTAEUS PERRY . Facility:[facility] Start: 08-19-2022 ambulatory Iliana GAGNON Facility : [place] Start: 08-19-2022 End: 08-19-[address] MATEUS PERRY . Facility:[facility] Start: 08-14-2022 End: 08-14-[address] MATEUS PERRY . Facility:[facility] Start: 08-11-2022 End: 08-11-[address] MATEUS PERRY . Facility:[facility] Start: 08-08-2022 End: 08-09-[address] MATEUS PERRY . Facility:[facility] Start: 08-02-2022 End: 08-02-[address] MATEUS PERRY . Facility:[facility] Start: 07-19-2022 End: 07-20-[address] MATEUS PERRY . Facility:[facility] Start: 06-28-2022 End: 06-28-2022 Subsequent hospital visit by physician Emma Garza MD Work Phone: [facility] Comment on above: Vaginal dysplasia Start: 06-22-2022 End: 06-23-2022 ambulatory SONALI MCKINNEY Facility:[facility] Start: 05-04-2022 ambulatory SONALI MCKINNEY Facility :[facility] Start: 04-12-2022 End: 04-13-2022 ambulatory SONALI MCKINNEY Facility:[facility] Start: 03-17-2022 End: 03-17-[address] MATEUS PERRY . Facility:[facility] Start: 03-16-2022 End: 03-16-[address] MATEUS PERRY . Facility:[facility] Start: 03-15-2022 End: 03-16-2022 ambulatory SONALI MCKINNEY Facility:[facility] Start: 02-15-2022 End: 02-16-2022 ambulatory SONALI MCKINNEY Facility:[facility] Start: 02-09-2022 End: 02-10-2022 ambulatory SONALI HANK Facility:[facility] Start: 12-13-2021 End: 12-13-2021 Subsequent hospital visit by physician Emma Garza MD Work Phone: [facility] Comment on above: Post-operative state (Primary Dx) Start: 12-06-2021 End: 12-08-2021 Subsequent hospital visit by physician Stv Pat Xr [facility] Comment on above: Arrived Start: 12-06-2021 End: 12-10-2021 Patient encounter status [facility] Pre-Admit Testing Start: 12-06-2021 End: 12-10-2021 Subsequent hospital visit by physician Pablo Hendrix Rm 2 [facility] Pre-Admit Testing Comment on above: Pre-op chest exam Start: 06-15-2021 End: 06-15-2021 Subsequent hospital visit by physician Kin Abarca MD Work Phone: [facility] Start: 05-12-2021 End: 05-14-2021 Subsequent hospital visit by physician [facility] Comment on above: Arrived Start: 05-12-2021 End: 05-16-2021 Patient encounter status [facility] 1 [facility] Pre-Admit Testing Start: 05-12-2021 End: 05-16-2021 Subsequent hospital visit by physician Pablo Hendrix Rm 1 [facility] Pre-Admit Testing Comment on above: Pre-op chest exam Procedures Date Procedure Procedure Detail Performing Clinician Start: 11-29-2022 Venography MD Mateus Perry Work Phone: Start: 10-19-2022 Lumpectomy of right breast Iliana GAGNON Start: 06-28-2022 Glucose blood reagen t strip Emma Garza MD Work Phone: Start: 06-28-2022 CALCIUM, IONIC (POC) Ch wilberto Garza MD Work Phone: Start: 06-28-2022 Chloride [Moles/volu me] in Serum or Plasma Emma Garza MD Work Phone: Start: 06-28-2022 CREATININE W/GFR POI NT OF CARE Emma Garza MD Work Phone: Start: 06-28-2022 Gluc bld gluc mntr d ev cleared fda spec home use Emma Garza MD Work Phone: Start: 06-28-2022 LACTIC ACID,POINT OF CARE Emma Garza MD Work Phone: Start: 06-28-2022 Potassium [Moles/vol ume] in Serum or Plasma Emma Garza MD Work Phone: Start: 06-28-2022 Sodium [Moles/volume ] in Serum or Plasma Emma Garza MD Work Phone: Start: 06-28-2022 Ecg routine ecg w/le ast 12 lds w/i&r Jimy Remy MD Work Phone: Start: 12-13-2021 Gluc bld gluc mntr d ev cleared fda spec home use Emma Garza MD Work Phone: Start: 12-13-2021 Potassium [Moles/vol ume] in Serum or Plasma Emma Garza MD Work Phone: Start: 12-10-2021 Antibody screen [facility] Start: 12-06-2021 Assay of magnesium Mi sa Kimmie PA-C Work Phone: Start: 12-06-2021 Radiologic exam ches t 2 views Latonia Kimmie PA-C Work Phone: Start: 12-06-2021 Ecg routine ecg w/le ast 12 lds i&r only Latonia Kimmie PA-C Work Phone: Start: 12-06-2021 Blood typing serolog ic abo Latonia Kimmie PA-C Work Phone: Start: 06-15-2021 H/O: surgery S/p Partial vaginectomy with Ultrasonic Scalpel 06/15/21 Kin Abarca MD Work Phone: Start: 06-15-2021 Glucose blood reagen t strip Kin Abarca MD Work Phone: Start: 06-15-2021 CREATININE W/GFR POI NT OF CARE Kin Abarca MD Work Phone: Start: 06-15-2021 Gluc bld gluc mntr d ev cleared fda spec home use Kin Abarca MD Work Phone: Start: 06-15-2021 Potassium [Moles/vol ume] in Serum or Plasma Kin Abarca MD Work Phone: Start: 05-12-2021 BASIC METABOLIC PANE L W/ REFLEX TO MG FOR LOW K Latonia Kimmie PA-C Work Phone: Start: 05-12-2021 Blood count complete auto&auto difrntl wbc Latonia Kimmie PA-C Work Phone: Start: 05-12-2021 Radiologic exam ches t 2 views Latonia Kimmie PA-C Work Phone: Start: 05-12-2021 Ecg routine ecg w/le ast 12 lds i&r only Latonia Kimmie PA-C Work Phone: Start: 08-20-2020 Antibody screen Comment on above: Performed By: #### [id number] #### [id number], [place] [address] Start: 01-16-2017 History of placement of stent for coronary artery disease S/P coronary artery stent placement Wallace Stone MD Work Phone: Appendectomy Iliana GAGNON Colposcopy Iliana GAGNON Cryosurgery of lesio n of cervix Iliana GAGNON Insertion of arteria l stent Iliana GAGNON Insertion of stent i n femoral vein Iliana GAGNON Repair of aneurysm Iliana BROWN Total hysterectomy v ia vaginal approach Iliana GAGNON Ultrasonography guid ed biopsy of right breast Iliana GAGNON Urinary bladder reconstruction Iliana GAGNON Plan of Treatment Date Care Activity Detail Author Start: 06-20-2024 Hemoglobin/Hematocrit Hemoglobin/Hem [facility] Start: 06-20-2024 Serum Creatinine Serum Creatinine [facility] Start: 02-15-2024 HEMOGLOBIN/HEMATOCRIT HEMOGLOBIN/HEM [facility] Start: 02-15-2024 SERUM CREATININE SERUM CREATININE [facility] Start: 06-16-2023 End: 08-16-2023 CBC W Auto Differential panel - Blood CBC + DIFF Lab Routine 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, estrogen receptor positive (HCC) Expected: 06/16/2023 (Approximate), Expires: 08/16/2023 [facility] Work Phone: Comment on above: Expected: 06/16/2023 (Approximate), Expires: 08/16/2023 Start: 06-16-2023 End: 08-16-2023 Comprehensive metabolic 2000 panel - Serum or Plasma COMP METABOLIC PANEL Lab Routine 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, estrogen receptor positive (HCC) Expected: 06/16/2023 (Approximate), Expires: 08/16/2023 [facility] Work Phone: Comment on above: Expected: 06/16/2023 (Approximate), Expires: 08/16/2023 Start: 05-12-2023 Covid-19 Vaccine ( season) Covid-19 Vaccine () [facility] Start: 05-12-2023 Influenza vaccination C [facility] Start: 04-12-2023 End: 04-12-2023 Patient encounter procedure 04/12/2023 Office Visit Gynecologic Oncology Latonia Brush PA-C [address] [place] [address] [facility] Start: 02-09-2023 End: 04-11-2023 CBC W Auto Differential panel - Blood CBC + DIFF Lab Routine 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, estrogen receptor positive (HCC) Expected: 02/09/2023 (Approximate), Expires: 04/11/2023 [facility] Work Phone: Comment on above: Expected: 02/09/2023 (Approximate), Expires: 04/11/2023 Start: 02-09-2023 End: 04-11-2023 Comprehensive metabolic 2000 panel - Serum or Plasma COMP METABOLIC PANEL Lab Routine 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, estrogen receptor positive (HCC) Expected: 02/09/2023 (Approximate), Expires: 04/11/2023 [facility] Work Phone: Comment on above: Expected: 02/09/2023 (Approximate), Expires: 04/11/2023 Start: 12-13-2022 Potassium monitoring Potassium monit [facility] Start: 12-06-2022 Creatinine measurement Creatinine mo nitoring [facility] Start: 12-06-2022 Potassium monitoring Potassium monit [facility] Start: 11-29-2022 End: 11-29-2022 [facility] Start: 09-11-2022 ADVANCE DIRECTIVE DISCUSSION ADVANCE DIRECTIVE DISCUSSION [facility] Start: 09-11-2022 DEPRESSION ASSESSMENT DEPRESSION ASS ESSMENT [facility] Start: 07-27-2022 End: 07-27-2022 Patient encounter procedure 07/27/2022 Office Visit Gynecologic Oncology Emma Garza MD [address] [facility] [address] [place] [address] [facility] Start: 06-28-2022 End: 06-28-2022 VULVA VAGINAL CERVIX LESION EXCISION LASER VULVA VAGINAL CERVIX LESION EXCISION LASER Vaginal dysplasia 06/28/2022 9:04 AM EDT [facility] Start: 06-15-2022 Creatinine measurement Creatinine mo [facility] Work Phone: Start: 06-15-2022 Potassium monitoring Potassium monit [facility] [employer] Phone: Start: 05-12-2022 Creatinine measurement Creatinine mo [facility] [employer] Phone: Start: 05-12-2022 Influenza vaccination INFLUENZA (#1) [facility] Start: 05-12-2022 Potassium monitoring Potassium monit [facility] Work Phone: Start: 04-11-2022 Influenza vaccination Flu vaccine (# 1) [facility] Start: 01-14-2022 End: 01-14-2022 Patient encounter procedure 01/14/2022 Office Visit Gynecologic Oncology Latonia Burks PA-C [address] [address] [address] [place] [address] [facility] Start: 12-13-2021 End: 12-13-2021 VAGINECTOMY [facility] Start: 12-13-2021 End: 12-13-2021 Admission to same day surgery center [facility] OR Comment on above: VAGINECTOMY, CYSTOSC OPY CYSTOSCOPY, VAGINECT PATY Start: 12-13-2021 Subsequent hospital visit by physician 12/13/2021 Hospital Encounter IP Unit Emma Garza MD [address] [facility] [address] [place] [address] [facility] Start: 12-13-2021 End: 04-04-2022 Vaginectomy complete removal vaginal wall VAGINECTOMY VAGINAL DYSPLASIA, RULE OUT CANCER 12/13/2021 10:20 AM EDT [facility] Start: 10-31-2021 Annual Wellness Visi t (AWV) Annual Wellness Visit (AWV) [facility] Start: 10-15-2021 COVID-19 VACCINE (4 - Booster for Moderna series) COVID-19 VACCINE (4 - Booster for Moderna series) [facility] Start: 07-01-2021 End: 07-01-2021 Patient encounter procedure 07/01/2021 Office Visit Gynecologic Oncology Kin Abarca MD [address] [facility] [address] [place] [address] [phone] [facility] Start: 05-12-2021 Influenza vaccination Flu vaccine (# 1) [facility] Work Phone: Start: 04-05-2021 COVID-19 Vaccine (3 - Booster for Moderna series) COVID-19 Vaccine (3 - Booster for Moderna series) [facility] Start: 10-29-2020 Hemoglobin A1c/Hemoglobin.total in Blood HBA1C [facility] Start: 01-19-2018 Pneumococcal Vaccine : 65+ (2 - PCV) Pneumococcal Vaccine: 65+ (2 - PCV) [facility] Start: 01-19-2018 PNEUMOCOCCAL: 65+ (2 - PCV) PNEUMOCOCCAL: 65+ (2 - PCV) [facility] Start: 2007 BONE DENSITY BONE DENSITY [facility] Start: 2007 Bone Density Screening Bone Density Screening [facility] Start: 2007 Pneumococcal 65+ yea rs Vaccine (1 - PCV) Pneumococcal 65+ years Vaccine (1 - PCV) [facility] Start: 2007 Pneumococcal 65+ yea rs Vaccine (1 of 1 - PPSV23) Pneumococcal 65+ years Vaccine (1 of 1 - PPSV23) [facility] Start: 2002 Hepatitis B Vaccine (1 of 3 - Risk 3-dose series) Hepatitis B Vaccine (1 of 3 - Risk 3-dose series) [facility] Start: 1997 Screening for osteoporosis DEXA (modify frequency per FRAX score) [facility] Start: 1992 Shingles Vaccine (1 of 2) Shingles Vaccine (1 of 2) [facility] Start: 1992 SHINGRIX VACCINE (1 of 2) SHINGRIX VACCINE (1 of 2) [facility] Start: 1961 DTaP/Tdap/Td vaccine (1 - Tdap) DTaP/Tdap/Td vaccine (1 - Tdap) [facility] Start: 1961 Urine microalbumin profile [facility] Start: 1960 ANNUAL PCP TEAM BANKING REPRESENTATIVE USAMA DISEASE VISIT ANNUAL PCP TEAM CHRONIC DISEASE VISIT [facility] Start: 1960 BP CONTROLLED (<130/80) BP CON TROLLED (<130/80) [facility] Start: 1960 Hepatitis B surface antibody level LDL CHOLESTEROL [facility] Start: 1960 Hepatitis C screening Hepatitis C [facility] Start: 1954 Depression Screen Depression Screen [facility] Start: 1952 3 comp foot exam completed DIABETIC FOOT EXAM [facility] Start: 1952 Hepatitis B screening URINE ALBUMIN:CREATININE RATIO [facility] Start: 1952 Hepatitis C antibody , confirmatory test DILATED RETINAL EXAM [facility] Start: 1952 Lipid panel [facility] Start: 1942 Hepatitis C screening Hepatitis C [facility] EKG 12 Lead EKG 12 Lead ECG STAT 06/28/2022 7:29 AM EDT [facility] Work Phone: End: 12-13-2021 INITIATE PACU OXYGEN THERAPY PROTOCOL Initiate PACU Oxygen Therapy Protocol Respiratory Care Routine Continuous until discontinued starting 12/13/2021 [facility] [employer] Phone: Comment on above: Continuous until dis continued starting 12/13/2021 End: 06-28-2022 INITIATE PACU OXYGEN THERAPY PROTOCOL Initiate PACU Oxygen Therapy Protocol Respiratory Care Routine Continuous until discontinued starting 06/28/2022 [facility] [employer] Phone: Comment on above: Continuous until dis continued starting 06/28/2022 End: 07-19-2024 MAGNO DIAGNOSTIC BILATERAL MAGNO DIAGNOSTIC BILATERAL Radiology Routine 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, estrogen receptor positive (HCC) 1 Occurrences starting 06/20/2023 until 07/19/2024 [facility] Work Phone: Comment on above: 1 Occurrences starti ng 06/20/2023 until 07/19/2024 Patient referral [facility] Work Phone: Spirometry panel Incentive viktoriya metry Respiratory Care Routine Every 2hr while awake until discontinued starting 12/13/2021 [facility] Phone: Comment on above: Every 2hr while awak e until discontinued starting 12/13/2021 Surgical Pathology Surgical Path ology Lab Routine Release Upon Ordering for 1 Occurrences starting 06/15/2021 [facility] Phone: Comment on above: Release Upon Orderin g for 1 Occurrences starting 06/15/2021 Surgical Pathology Surgical Path ology Lab Routine Release Upon Ordering for 1 Occurrences starting 12/13/2021 [facility] Phone: Comment on above: Release Upon Orderin g for 1 Occurrences starting 12/13/2021 Surgical Pathology Surgical Path ology Lab Routine Vaginal dysplasia Release Upon Ordering for 1 Occurrences starting 06/28/2022 [facility] Phone: Comment on above: Release Upon Orderin g for 1 Occurrences starting 06/28/2022 End: 06-28-2022 SURGICAL PATHOLOGY REPORT SURGICAL PATHOLOGY REPORT Lab Routine Once for 1 Occurrences starting 06/28/2022 until 06/28/2022 [facility] Phone: Comment on above: Once for 1 Occurrenc es starting 06/28/2022 until 06/28/2022 End: 11-24-2022 SURGICAL PATHOLOGY REPORT SURGICAL PATHOLOGY REPORT Lab Routine Once for 1 Occurrences starting 11/24/2022 until 11/24/2022 [facility] Phone: Comment on above: Once for 1 Occurrenc es starting 11/24/2022 until 11/24/2022 [facility] Immunizations Immunization Date Immunization Notes Care Provider [facility] 07-12-2022 influenza virus vacc ine, unspecified formulation Iliana CHELSI [facility] 08-20-2021 SARS-CoV-2 (COVID-19 ) mRNA-0637 vaccine Iliana DORANBerna [facility] 07-01-2021 influenza (HD-IIV4) vaccine, age 65+ yr, high dose, quadrivalent, PF (FLUZONE HIGH-DOSE) Wallace Stone MD Work Phone: [facility] 07-01-2021 influenza virus vacc ine, unspecified formulation Winnie Guzmán PA-C Work Phone: [facility] 11-06-2020 COVID-19, Moderna, P F, 100mcg/0.5mL Stv Xr [facility] 10-09-2020 COVID-19, Moderna, P F, 100mcg/0.5mL Stv Xr [facility] Work Phone: 06-10-2020 Seasonal trivalent influenza vaccine, adjuvanted, preservative free Wallace Stone MD Work Phone: [facility] 06-07-2017 influenza, high dose seasonal, preservative-free Wallace Stone MD Work Phone: [facility] 01-19-2017 pneumococcal polysaccharide vaccine, 23 valent Wallace Stone MD Work Phone: [facility] 06-29-2015 influenza, high dose seasonal, preservative-free Wallace Stone MD Work Phone: [facility] 06-23-2014 influenza, high dose seasonal, preservative-free Wallace Stone MD Work Phone: [facility] 06-15-2010 pneumococcal polysaccharide vaccine, 23 valent Wallace Stone MD Work Phone: [facility] 06-27-2007 influenza virus vacc ine, whole virus Wallace Stone MD Work Phone: [facility] Payers Date Payer Category Payer Self-pay [id number] 2007 Medicare MEDICARE MEDICAR E A AND B [id number] 2007-Present [phone] [address] [address] [place] [address] Medicare [id number] 2007 Unknown [id number] .[id number] 2007 Unknown [employer] MEDICARE SUPPLEMENT [id number] 2007-Present [phone] [id number] [place] [address] Indemnity [id number] .[id number] 1959 Medicare [id number] 1.2.840.901540.1.13.239.2.7.3 .389915.315 1959 Self-pay [id number] 1959 Unknown [id number] 2.16.8 40.1.491006.19 1942 Unknown [id number] 2.16.840.1.457108.3.579.2.593 1942 Unknown [id number] 2.16.840.1.772047.3.579.2.593 1942 Unknown [id number] 2.16.840.1.218656.3.579.2.593 1942 Unknown [id number] 2.16.840.1.092865.3.579.2.593 1942 Unknown [id number] 2.16.840.1.589970.3.579.2.593 1942 Unknown [id number] 2.16.840.1.851629.3.579.2.593 1942 Unknown [id number] 2.16.840.1.587545.3.579.2.593 1942 Unknown [id number] 2.16.840.1.695365.3.579.2.593 1942 Unknown [id number] 2.16.840.1.827961.3.579.2.593 1942 Unknown [id number] 2.16.840.1.896690.3.579.2.593 1942 Unknown [id number] 2.16.840.1.211127.3.579.2.593 1942 Unknown [id number] 2.16.840.1.180511.3.579.2.593 1942 Unknown [id number] 2.16.840.1.906977.3.579.2.593 1942 Unknown [id number] 2.16.840.1.720639.3.579.2.593 1942 Unknown [id number] 2.16.840.1.378429.3.579.2.593 1942 Unknown [id number] 2.16.840.1.610245.3.579.2.593 1942 Unknown [id number] 2.16.840.1.726192.3.579.2.593 1942 Unknown [id number] 2.16.840.1.816200.3.579.2.593 1942 Unknown [id number] 2.16.840.1.841902.3.579.2.593 1942 Unknown [id number] 2.16.840.1.707662.3.579.2.593 1942 Unknown [id number] 2.16.840.1.545047.3.579.2.593 1942 Unknown [id number] 2.16.840.1.915767.3.579.2.593 1942 Unknown [id number] 2.16.840.1.963478.3.579.2.593 1942 Unknown [id number] 2.16.840.1.753362.3.579.2.593 1942 Unknown [id number] 2.16.840.1.856038.3.579.2.593 1942 Unknown [id number] 2.16.840.1.265658.3.579.2.593 1942 Unknown [id number] 2.16.840.1.892795.3.579.2.593 1942 Unknown [id number] 2.16.840.1.755463.3.579.2.727 1942 Unknown [id number] 2.16.840.1.401187.3.579.2.727 1942 Unknown [id number] 2.16.840.1.236990.3.579.2.727 1942 Unknown [id number] 2.16.840.1.606172.3.579.2.727 1942 Unknown [id number] 2.16.840.1.492780.3.579.2.727 1942 Unknown [id number] 2.16.840.1.288637.3.579.2.727 1942 Unknown [id number] 2.16.840.1.659283.3.579.2.727 1942 Unknown [id number] 2.16.840.1.798631.3.579.2.175 1942 Unknown [id number] 2.16.840.1.984225.3.579.2.175 1942 Unknown [id number] 2.16.840.1.108967.3.579.2.175 Medicare Medicare Outpatient [id number] [id number] Unknown [id number] 2.16.840.1.146861.3.579.2.531 Social History Date Type Detail Facility Start: 05-12-2021 End: 09-19-2022 Tobacco smoking status NHIS Former smoker [facility] Phone: Start: 09-11-1962 End: 06-28-2018 History of tobacco use Current smoker [facility] Start: 09-11-1962 End: 06-28-2018 History of tobacco use Cigarette Smoker [facility] Start: 05-12-2021 End: 09-19-2022 Tobacco use and exposure Never used [facility] Start: 05-12-2021 End: 11-24-2022 Alcohol intake Ex-drinker (finding) [facility] Phone: Start: 1940 Sex Assigned At Not on file [facility] Phone: Start: 11-26-2021 End: 06-24-2022 Exposure to SARS-CoV-2 (event) Not sure [facility] Start: 06-15-2021 End: 02-14-2023 Cigarettes smoked current (pack per day) - Reported [facility] History of tobacco use Passive smoker [facility] Phone: Tobacco smoking status Never [facility] Start: 02-14-2023 Sex Assigned At Female F [facility] Start: 09-19-2022 End: 02-14-2023 Alcohol intake Current non-drinker of alcohol (finding) [facility] Start: 1940 Sex Assigned At Female F [facility] Medical Equipment Procedure Code Equipment Code Equipment Origin al Text Equipment Identifier Dates Aortogram, abdominal, with bilateral lower extremity runoff IR STENT BLUE 6 X 12 80CM FDA Start: 04-25-2019 Aortogram, abdominal, with bilateral lower extremity runoff IR STENT SMART 6 X 120 120CM FDA Start: 04-25-2019 Aortogram, abdominal, with bilateral lower extremity runoff IR STENT SMART 6 X 40 120CM FDA Start: 04-25-2019 Functional Status Date Assessment Result Facility 09-09-2022 Functional Status N/A [facility] Clinical Notes 05-12-2021 to 06-20-2023 Lina Lopes MA - 06/20/2023 2:49 PM EDTMWinnie hurd PA-C - 06/20/2023 2:30 PM EDT Note Date & Type Note Facility 06-20-2023 Note HNO ID: [id number] Author: Winnie Guzmán PA-C Service: ? Author Type: Physician Pet Nutrition Specialist Type: Progress Notes Filed: 06/20/2023 3:58 PM Note Text: PATIENT NAME: Harman Mcleod CLINIC NO.: [id number] ATTENDING PHYSICIAN: Wallace Stone MD DATE OF SERVICE: February 14, 2023 (Elements copied from Dr. Stone's note dated February 14, 2023, have been reviewed and updated where appropriate, and all reflect current assessment and medical decision making during today's encounter, June 20, 2023) CC: Follow up Diagnosis: T1b, N0, M0- R breast, Tumor 9 mm, Grade 2, Margins negative, Negative LVI, 2 SNL negative, ER and HI >95% positive, Her2 IHC 1+ Treatment History: R Breast Lumpectomy and SNL 10/19/2022 Decided not to have XRT Arimidex 11/2022 HPI: Harman Mcleod is a 82 year old year old female here for follow up. Taking her arimidex daily. No issues with hot flashes or joint complaints. No new pain or other medical issues. She is having fluctuations in her blood sugars. Her PCP is monitoring it. She also is now following with rheumatology for her elevated uric acid levels and arthritis. 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 Social History Tobacco Use Smoking status: Former Packs/day: 0.50 Years: 50.00 Additional pack years: 0.00 Total pack years: 25.00 Types: Cigarettes Quit date: 06/28/2018 Years since quittin.9 Passive exposure: Past Smokeless tobacco: Never Vaping Use Vaping Use: Never used Substance Use Topics Alcohol use: No Drug use: No FAMILY HISTORY Problem Relation Age of Onset Hypertension Mother Hyperlipidemia Mother other (non-insulin dependent diabetes mellitus) Mother other (heart disease) Mother other (cerebrovascular accident hypothyroid) Mother Cancer Father Arthritis Father Hypertension Father Asthma Father other (heart disease) Father Breast Cancer Sister Breast Cancer Other Past medical, social and family history reviewed without any changes. REVIEW OF SYSTEMS GENERAL: No weight loss, malaise or fevers. No night sweats. HEENT: Negative for headaches, No changes in hearing or vision, no nose bleeds or other nasal problems. RESPIRATORY: Negative for cough, wheezing and shortness of breath CARDIOVASCULAR: Negative for chest pain, leg swelling and palpitations GI: Negative for abdominal discomfort, blood in stools or black stools and change in bowel habits : Negative for dysuria, frequency and incontinence MUSCULOSKELETAL: Negative for joint pain or swelling, back pain, and muscle pain. SKIN: Negative for lesions, rash, and itching. HEMATOLOGY/LYMPHOLOGY Negative for prolonged bleeding, bruising easily, and swollen nodes. NEURO: Negative for numbness or tingling of hands/feet. No weakness. PHYSICAL EXAMINATION: BP 138/55 Pulse 72 Temp (Src) 97.4 (Temporal) Resp 16 Wt 186 lb 9.6 oz (84.6kg) SpO2 96% ECOG PERFORMANCE STATUS: 1- Restricted in physically strenuous activity. Carries out light duty. General: Alert and oriented, no distress, pleasant and cooperative. Heart: Regular, normal S1 and S2, no murmurs, rubs, or gallops Lungs: Clear to auscultation bilaterally Abdomen: Benign Extremities: Feet/ankles without edema, posterior tibial pulses full and symmetrical Breast: bilateral pendulous breasts without masses or skin changes noted. Lymph: no palpable bilateral cervical, SC and axillary nodes LABS: Glucose (mg/dL) Date Value 06/20/2023 273 04/28/2020 114 Potassium (mmol/L) Date Value 06/20/2023 5.1 04/28/2020 4.7 Sodium (mmol/L) Date Value 06/20/2023 142 04/28/2020 140 Chloride (mmol/L) Date Value 06/20/2023 103 04/28/2020 101 CO2 (mmol/L) Date Value 06/20/2023 30 04/28/2020 28 Creatinine (mg/dL) Date Value 06/20/2023 1.77 04/28/2020 1.12 BUN (mg/dL) Date Value 06/20/2023 40 04/28/2020 24 Anion Gap (mmol/L) Date Value 06/20/2023 9 04/28/2020 11 Calcium (mg/dL) Date Value 04/28/2020 9.5 Calcium, Total (mg/dL) Date Value 06/20/2023 10.1 Protein, Total (g/dL) Date Value 06/20/2023 6.4 10/24/2017 7.3 Al (more content not included)... [facility] 06-20-2023 Nurse Note Patient would like to know if she needs a mammogram? She was told in Oct that she would need one in 6 months. Lina Lopes MA documented in this encounter [facility] 06-20-2023 History of Present illness Narrative Images from the original note were not included. PATIENT NAME: Harman Mcleod [facility] NO.: [id number] ATTENDING PHYSICIAN: Wallace Stone MD DATE OF SERVICE: February 14, 2023 (Elements copied from Dr. Stone's note dated February 14, 2023, have been reviewed and updated where appropriate, and all reflect current assessment and medical decision making during today's encounter, June 20, 2023) CC: Follow up Diagnosis: T1b, N0, M0- R breast, Tumor 9 mm, Grade 2, Margins negative, Negative LVI, 2 SNL negative, ER and HI >95% positive, Her2 IHC 1+ Treatment History: R Breast Lumpectomy and SNL 10/19/2022 Decided not to have XRT Arimidex 11/2022 HPI: Harman Mcleod is a 82 year old year old female here for follow up. Taking her arimidex daily. No issues with hot flashes or joint complaints. No new pain or other medical issues. She is having fluctuations in her blood sugars. Her PCP is monitoring it. She also is now following with rheumatology for her elevated uric acid levels and arthritis. 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 Social History Tobacco Use Smoking status: Former Packs/day: 0.50 Years: 50.00 Additional pack years: 0.00 Total pack years: 25.00 Types: Cigarettes Quit date: 06/28/2018 Years since quittin.9 Passive exposure: Past Smokeless tobacco: Never Vaping Use Vaping Use: Never used Substance Use Topics Alcohol use: No Drug use: No FAMILY HISTORY Problem Relation Age of Onset Hypertension Mother Hyperlipidemia Mother other (non-insulin dependent diabetes mellitus) Mother other (heart disease) Mother other (cerebrovascular accident hypothyroid) Mother Cancer Father Arthritis Father Hypertension Father Asthma Father other (heart disease) Father Breast Cancer Sister Breast Cancer Other Past medical, social and family history reviewed without any changes. REVIEW OF SYSTEMS GENERAL: No weight loss, malaise or fevers. No night sweats. HEENT: Negative for headaches, No changes in hearing or vision, no nose bleeds or other nasal problems. RESPIRATORY: Negative for cough, wheezing and shortness of breath CARDIOVASCULAR: Negative for chest pain, leg swelling and palpitations GI: Negative for abdominal discomfort, blood in stools or black stools and change in bowel habits : Negative for dysuria, frequency and incontinence MUSCULOSKELETAL: Negative for joint pain or swelling, back pain, and muscle pain. SKIN: Negative for lesions, rash, and itching. HEMATOLOGY/LYMPHOLOGY Negative for prolonged bleeding, bruising easily, and swollen nodes. NEURO: Negative for numbness or tingling of hands/feet. No weakness. PHYSICAL EXAMINATION: BP 138/55 Pulse 72 Temp (Src) 97.4 (Temporal) Resp 16 Wt 186 lb 9.6 oz (84.6kg) SpO2 96% ECOG PERFORMANCE STATUS: 1- Restricted in physically strenuous activity. Carries out light duty. General: Alert and oriented, no distress, pleasant and cooperative. Heart: Regular, normal S1 and S2, no murmurs, rubs, or gallops Lungs: Clear to auscultation bilaterally Abdomen: Benign Extremities: Feet/ankles without edema, posterior tibial pulses full and symmetrical Breast: bilateral pendulous breasts without masses or skin changes noted. Lymph: no palpable bilateral cervical, SC and axillary nodes LABS: Glucose (mg/dL) Date Value 06/20/2023 273 04/28/2020 114 Potassium (mmol/L) Date Value 06/20/2023 5.1 04/28/2020 4.7 Sodium (mmol/L) Date Value 06/20/2023 142 04/28/2020 140 Chloride (mmol/L) Date Value 06/20/2023 103 04/28/2020 101 CO2 (mmol/L) Date Value 06/20/2023 30 04/28/2020 28 Creatinine (mg/dL) Date Value 06/20/2023 1.77 04/28/2020 1.12 BUN (mg/dL) Date Value 06/20/2023 40 04/28/2020 24 Anion Gap (mmol/L) Date Value 06/20/2023 9 04/28/2020 11 Calcium (mg/dL) Date Value 04/28/2020 9.5 Calcium, Total (mg/dL) Date Value 06/20/2023 10.1 Protein, Total (g/dL) Date Value 06/20/2023 6.4 10/24/2017 7.3 Albumin (g/dL) Date Value 06/20/2023 4.0 10/24/2017 3.9 Bilirubin, Total (mg/dL) Date Value 06/20/2023 0.2 10/24/2017 0.4 Alkaline Phosphatase (U/L) Date Value 06/20/2023 72 10/24/2017 94 AST (U/L) Date Value 06/20/2023 11 10/24/2017 16 ALT (U/L) Date Value 06/20/2023 17 10/24/2017 9 WBC Date Value Ref Range Status 06/20/2023 10.21 3.70 - 11.00 k/uL Final RBC Date Value Ref Range Status 06/20/2023 3.65 (L) 3.90 - 5.20 m/uL Final Hemoglobin Date Value Ref Range Status 06/20/2023 10.9 (L) 11.5 - 15.5 g/dL Final Hematocrit Date Value Ref Range Status 06/20/2023 34.9 (L) 36.0 - 46.0 % Final MCV Date Value Ref Range Status 06/20/2023 95.6 80.0 - 100.0 fL Final MCH Date Value Ref Range Status 06/20/2023 29.9 26.0 - 34.0 pg Final MCHC Date Value Ref Range Status 06/20/2023 31.2 30.5 - 36.0 g/dL Final RDW-CV Date Value Ref Range Status 06/20/2023 14.4 11.5 - 15.0 % Final Platelet Count Date Value Ref Range Status 06/20/2023 275 150 - 400 k/uL Final MPV Date Value Ref Range Status 06/20/2023 9.3 9.0 - 12.7 fL Final Abs Neut Date Value Ref Range Status 06/20/2023 7.59 (H) 1.45 - 7.50 k/uL Final Lymphocytes % Date Value Ref Range Status 06/20/2023 19.3 % Final Abs Lymph Date Value Ref Range Status 06/20/2023 1.97 1.00 - 4.00 k/uL Final Monocytes % Date Value Ref Range Status 06/20/2023 4.8 % Final Abs [place] Date Value Ref Range Status 06/20/2023 0.49 <0.87 k/uL Final Eosinophils % Date Value Ref Range Status 06/20/2023 0.2 % Final Abs Eosin Date Value Ref Range Status 06/20/2023 <0.03 <0.46 k/uL Final Basophils % Date Value Ref Range Status 06/20/2023 0.3 % Final Abs Baso Date Value Ref Range Status 06/20/2023 0.03 <0.11 k/uL Final PATH: R Breast Lumpectomy 10/2022: Imaging: Assessment and Plan: Harman Mcleod is a 82 year old year old female here for follow up. R Breast T1b,N0,M0- ER and HI >95% positive and Her-2 IHC 1+ tumor post Lumpectomy and SNL 10/2022. Reviewed path and she elected not to proceed with XRT and started Arimidex in 11/2022. Continues to tolerate well. Mammogram in 07/2023 (order placed). See us in 4 months. Plan is for 5 years of AI therapy Osteoporosis- On Prolia started 08/[address] Perry Vulvar high grade dysplasia- Follows [facility] Cutter Onc at [facility] R Leg swelling and pain and h/o PVD- Follows vascular HTN--managed by PCP Winnie Guzmán PA-C CC: MD Mateus Spicer MD documented in this encounter [facility] 06-01-2023 Evaluation note Encounter Date Diagnosis Assessment Notes May, Right leg swelling (ICD-10 - M79.89) I had a lengthy discussion with this patient today. I do not recommend any further work-up for her leg swelling. I do not believe her leg swelling is of a vascular origin or etiology. We have had several negative duplex ultrasounds of the right lower extremity. In addition I took her to the Pediatric Neuropsychologist and performed a right iliac venogram which was negative for hemodynamically significant stenoses. This patient has a gravity problem. She sits most of the day and gravity draws fluids to her legs. She does not exercise nor does she walk much. I explained her that this is going to happen for people with this level of activity. The leg does not bother her or hurt her. I suggest she ignore it and move on with her life. I did offer her a second opinion at the [facility] vascular medicine program. She declined. I will see her as needed in the future. [facility] Other 07-10-2023 NoteUT Cardiology - [facility] Subjective Harman Mcleod is a 82 y.o. year old female patient being seen for 6 [facility] F/U Coronary Artery Disease, Atrial Fibrillation, Congestive Heart Failure, and Hypertension 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 diastolic (congestive) heart failure (CMS/HCC) BMI 36.0-36.9,adult Brain stem vertigo Breast cancer of upper-outer quadrant of right female breast (CMS/HCC) Cervical disc disease Chronic anticoagulation Chronic diastolic heart failure (CMS/HCC) Chronic low back pain Chronic obstructive pulmonary disease (CMS/HCC) Diverticulosis Edema Invasive ductal carcinoma of right breast (CMS/HCC) Osteopenia Pseudoaneurysm of femoral artery (CMS/HCC) Pure hypercholesterolemia Rectal bleeding Stage 2 chronic kidney disease Family History Problem Relation Name Age of Onset Stroke Mother Coronary artery disease Father Heart attack Father Social History Tobacco Use Smoking status: Former Types: Cigarettes Smokeless tobacco: Never Substance Use Topics Alcohol use: Not Currently HPI Harman is seen in follow up. She has history of CAD and PAD s/p stenting in the past. [CAD history: stenting of RCA ISR 12/15/2011, stenting of RCA 08/23/2010, Angioplasty and Synergy drug-eluting stent to mid RCA ISR in July 2018] She has hypertension. PAF [discovered to have atrial fibrillation on ECG strips while undergoing cardiac rehab], and systolic heart failure with recovered EF. She is a current smoker. In August 2020 she underwent attempt at closure of the left atrial appendage using the watchman 2.5 device. This was not feasible as the anatomy was not conducive for that device. She was on hold until we obtain the watchman FLX. She has leg swelling and uses compression stockings. She was found to have breast cancer and is being treated with anastrozole. she denies chest pain, shortness of breath, palpitations, dizziness, syncope. she has good exercise tolerance. There is no claudication. She has had a few falls recently. Review of Systems Cardiovascular: Positive for leg swelling. All other systems reviewed and are negative. Objective Visit Vitals BP 149/56 (BP Location: Right arm, Patient Position: Sitting, BP Cuff Size: Adult) Pulse 63 SpO2 91% Smoking Status Former Physical Exam Constitutional: Appearance: She is well-developed. She is obese. She is not ill-appearing. HENT: Head: Normocephalic and atraumatic. Nose: Nose normal. Eyes: General: No scleral icterus. Pupils: Pupils are equal, round, and reactive to light. Neck: Thyroid: No thyromegaly. Vascular: No JVD. Cardiovascular: Rate and Rhythm: Normal rate and regular rhythm. Pulses: Radial pulses are 2+ on the right side and 2+ on the left side. Heart sounds: Normal heart sounds. No murmur heard. No friction rub. No gallop. Pulmonary: Effort: Pulmonary effort is normal. No respiratory distress. Breath sounds: Normal breath sounds. No wheezing or rales. Chest: Chest wall: No tenderness. Abdominal: General: Bowel sounds are normal. There is no distension. Palpations: Abdomen is soft. Tenderness: There is no abdominal tenderness. Musculoskeletal: General: No swelling. Cervical back: Neck supple. Right lower le+ Pitting Edema present. Left lower le+ Pitting Edema present. Comments: uses a walker to assist with ambulation Skin: General: Skin is warm and dry. Neurological: General: No focal deficit present. Mental Status: She is alert and oriented to person, place, and time. Psychiatric: Mood and Affect: Mood normal. Behavior: Behavior is cooperative. Judgment: Judgment normal. Allergies Allergies Allergen Reactions Ciprofloxacin Hives and Other Other reaction(s): Other: See Comments tendon issues tendon issues Cefdinir Other Oxycodone Rash Rash & GI upset Oxycodone-Acetaminophen Other GI upset & rash Medications Current Outpatient Medications: albuterol 2.5 mg /3 mL (0.083 %) nebulizer solution, USE 1 VIAL IN NEBULIZER 4 TIMES DAILY NEEDED, Disp: , Rfl: amLODIPine (Norvasc) 5 mg tablet, Take 1 tablet (5 mg) by mouth once daily as directed., Disp: 90 tablet, Rfl: 3 anastrozole (Arimidex) 1 mg chemo tablet, T (more content not included)... [facility]06-29-2023 Evaluation note* Encounter Date Diagnosis Assessment Notes Treatment Notes Treatment Clinical Notes Feb, Bilateral lower extremity edema (ICD-10 - R60.0) Her edema is much improved with use of her venous pumps and she is very happy that they feel less heavy and she can be a little more active at this point. She does tell me that she continues use of her graded compression stockings faithfully and she uses her pump daily. She is happy with her results and feels this has much improved her overall status. We will continue to follow her along on an as-needed basis in the future. She knows to call us with any concerns whatsoever. [facility] Other 06-06-2023 NoteHNO ID: [id number] Author: Wallace Stone MD Service: ? Author Type: Physician Type: Progress Notes Filed: 02/14/2023 10:49 AM Note Text: PATIENT NAME: Harman Mcleod CLINIC NO.: [id number] ATTENDING PHYSICIAN: Wallace Stone MD DATE OF SERVICE: February 14, 2023 Some of the elements of this note have been copied from my previous progress note dated 11/09/2022. All the information has been reviewed carefully. Dear Dr. Perry referring provider defined for this encounter. here is an update on a follow up visit on female Harman Mcleod at the clinic February 14, 2023 Diagnosis: T1b, N0, M0- R breast, Tumor 9 mm, Grade 2, Margins negative, Negative LVI, 2 SNL negative, ER and HI >95% positive, Her2 IHC 1+ Treatment History: R Breast Lumpectomy and SNL 10/19/2022 Decided not to have XRT Arimidex 11/2022 HPI: Harman Mcleod is a 82 year old year old female here for follow up. Tolerating the Arimidex well. She does have a rash on her elbow. 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 Social History Tobacco Use Smoking status: Former Packs/day: 0.50 Years: 50.00 Pack years: 25.00 Types: Cigarettes Quit date: 06/28/2018 Years since quittin.6 Passive exposure: Past Smokeless tobacco: Never Vaping Use Vaping Use: Never used Substance Use Topics Alcohol use: No Drug use: No FAMILY HISTORY Problem Relation Age of Onset Hypertension Mother Hyperlipidemia Mother other (non-insulin dependent diabetes mellitus) Mother other (heart disease) Mother other (cerebrovascular accident hypothyroid) Mother Cancer Father Arthritis Father Hypertension Father Asthma Father other (heart disease) Father Breast Cancer Sister Breast Cancer Other Past medical, social and family history reviewed without any changes. REVIEW OF SYSTEMS GENERAL: No weight loss, malaise or fevers. No night sweats. HEENT: Negative for headaches, No changes in hearing or vision, no nose bleeds or other nasal problems. RESPIRATORY: Negative for cough, wheezing and shortness of breath CARDIOVASCULAR: Negative for chest pain, leg swelling and palpitations GI: Negative for abdominal discomfort, blood in stools or black stools and change in bowel habits : Negative for dysuria, frequency and incontinence MUSCULOSKELETAL: Negative for joint pain or swelling, back pain, and muscle pain. SKIN: Negative for lesions, rash, and itching. HEMATOLOGY/LYMPHOLOGY Negative for prolonged bleeding, bruising easily, and swollen nodes. NEURO: Negative for numbness or tingling of hands/feet. No weakness. PHYSICAL EXAMINATION: BP 151/90 Pulse 102 Temp (Src) 97.4 (Temporal) Resp 16 Ht 5' .984 (1.55m) Wt 186 lb 3.2 oz (84.5kg) SpO2 95% BMI 35.20 kg/(m2). Wt 84.7 kg (186 lb 12.8 oz) BMI 35.31 kg/m2 Last 3 Encounter Wt Readings: Date: Wt: 11/09/2022 84.7 kg (186 lb 12.8 oz) 09/22/2022 84.8 kg (187 lb) 05/29/2020 90.4 kg (199 lb 6.4 oz) General appearance:ECOG PERFORMANCE STATUS: 1- Restricted in physically strenuous activity. Carries out light duty. Patient in NAD. Skin: Skin color, texture, turgor normal. No rashes or lesions. Eyes: Anicteric sclera. Pupils are equally round and reactive to light. Extraocular movements are intact. Lymph Nodes: No cervical, supraclavicular, axillary or inguinal adenopathy. Oropharynx: Lips, mucosa, and tongue normal. Back: No pain to percussion. Negative SLR test Lungs clear to auscultation, No wheezing or rhonchi Heart: RRR without murmur, gallop, or rubs. Abdomen soft, non-tender. No masses, organomegaly Extremities: No deformities. No edema Neuro: Gait and speech normal. Reflexes normal and symmetric. Muscular strength intact. Sensation grossly intact. Rectal: Deferred : Deferred LABS: Glucose (mg/dL) Date Value 04/28/2020 114 Potassium (mmol/L) Date Value 04/28/2020 4.7 Sodium (mmol/L) Date Value 04/28/2020 140 Chloride (mmol/L) Date Value 04/28/2020 101 CO2 (mmol/L) Date Value 04/28/2020 28 Creatinine (mg/dL) Date Value 04/28/2020 1.12 BUN (mg/dL) (more content not included)...[facility]06-06-2023 History of Present illness Narrative* Wallace Stone MD - 02/14/2023 10:37 AM EDT Images from the original note were not included. PATIENT NAME: Harman Coronel [facility] NO.: [id number] ATTENDING PHYSICIAN: Wallace Stone MD DATE OF SERVICE: February 14, 2023 Some of the elements of this note have been copied from my previous progress note dated 11/09/2022. All the information has been reviewed carefully. Dear Dr. Perry referring provider defined for this encounter. here is an update on a follow up visit on female Harman Mcleod at the clinic February 14, 2023 Diagnosis: T1b, N0, M0- R breast, Tumor 9 mm, Grade 2, Margins negative, Negative LVI, 2 SNL negative, ER and HI >95% positive, Her2 IHC 1+ Treatment History: R Breast Lumpectomy and SNL 10/19/2022 Decided not to have XRT Arimidex 11/2022 HPI: Harman Mcleod is a 82 year old year old female here for follow up. Tolerating the Arimidex well. She does have a rash on her elbow. 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 Social History Tobacco Use Smoking status: Former Packs/day: 0.50 Years: 50.00 Pack years: 25.00 Types: Cigarettes Quit date: 06/28/2018 Years since quittin.6 Passive exposure: Past Smokeless tobacco: Never Vaping Use Vaping Use: Never used Substance Use Topics Alcohol use: No Drug use: No FAMILY HISTORY Problem Relation Age of Onset Hypertension Mother Hyperlipidemia Mother other (non-insulin dependent diabetes mellitus) Mother other (heart disease) Mother other (cerebrovascular accident hypothyroid) Mother Cancer Father Arthritis Father Hypertension Father Asthma Father other (heart disease) Father Breast Cancer Sister Breast Cancer Other Past medical, social and family history reviewed without any changes. REVIEW OF SYSTEMS GENERAL: No weight loss, malaise or fevers. No night sweats. HEENT: Negative for headaches, No changes in hearing or vision, no nose bleeds or other nasal problems. RESPIRATORY: Negative for cough, wheezing and shortness of breath CARDIOVASCULAR: Negative for chest pain, leg swelling and palpitations GI: Negative for abdominal discomfort, blood in stools or black stools and change in bowel habits : Negative for dysuria, frequency and incontinence MUSCULOSKELETAL: Negative for joint pain or swelling, back pain, and muscle pain. SKIN: Negative for lesions, rash, and itching. HEMATOLOGY/LYMPHOLOGY Negative for prolonged bleeding, bruising easily, and swollen nodes. NEURO: Negative for numbness or tingling of hands/feet. No weakness. PHYSICAL EXAMINATION: BP 151/90 Pulse 102 Temp (Src) 97.4 (Temporal) Resp 16 Ht 5' .984 (1.55m) Wt 186 lb 3.2 oz (84.5kg) SpO2 95% BMI 35.20 kg/(m^2). Wt 84.7 kg (186 lb 12.8 oz) BMI 35.31 kg/m2 Last 3 Encounter Wt Readings: Date: Wt: 11/09/2022 84.7 kg (186 lb 12.8 oz) 09/22/2022 84.8 kg (187 lb) 05/29/2020 90.4 kg (199 lb 6.4 oz) General appearance:ECOG PERFORMANCE STATUS: 1- Restricted in physically strenuous activity. Carries out light duty. Patient in NAD. Skin: Skin color, texture, turgor normal. No rashes or lesions. Eyes: Anicteric sclera. Pupils are equally round and reactive to light. Extraocular movements are intact. Lymph Nodes: No cervical, supraclavicular, axillary or inguinal adenopathy. Oropharynx: Lips, mucosa, and tongue normal. Back: No pain to percussion. Negative SLR test Lungs clear to auscultation, No wheezing or rhonchi Heart: RRR without murmur, gallop, or rubs. Abdomen soft, non-tender. No masses, organomegaly Extremities: No deformities. No edema Neuro: Gait and speech normal. Reflexes normal and symmetric. Muscular strength intact. Sensation grossly intact. Rectal: Deferred : Deferred LABS: Glucose (mg/dL) Date Value 04/28/2020 114 Potassium (mmol/L) Date Value 04/28/2020 4.7 Sodium (mmol/L) Date Value 04/28/2020 140 Chloride (mmol/L) Date Value 04/28/2020 101 CO2 (mmol/L) Date Value 04/28/2020 28 Creatinine (mg/dL) Date Value 04/28/2020 1.12 BUN (mg/dL) Date Value 04/28/2020 24 Anion Gap (mmol/L) Date Value 04/28/2020 11 Calcium (mg/dL) Date Value 04/28/2020 9.5 Protein, Total (g/dL) Date Value 10/24/2017 7.3 Albumin (g/dL) Date Value 10/24/2017 3.9 Bilirubin, Total (mg/dL) Date Value 10/24/2017 0.4 Alkaline Phosphatase (U/L) Date Value 10/24/2017 94 AST (U/L) Date Value 10/24/2017 16 ALT (U/L) Date Value 10/24/2017 9 WBC Date Value Ref Range Status 02/14/2023 10.41 3.70 - 11.00 k/uL Final RBC Date Value Ref Range Status 02/14/2023 4.07 3.90 - 5.20 m/uL Final Hemoglobin Date Value Ref Range Status 02/14/2023 12.2 11.5 - 15.5 g/dL Final Hematocrit Date Value Ref Range Status 02/14/2023 38.4 36.0 - 46.0 % Final MCV Date Value Ref Range Status 02/14/2023 94.3 80.0 - 100.0 fL Final MCH Date Value Ref Range Status 02/14/2023 30.0 26.0 - 34.0 pg Final MCHC Date Value Ref Range Status 02/14/2023 31.8 30.5 - 36.0 g/dL Final RDW-CV Date Value Ref Range Status 02/14/2023 14.1 11.5 - 15.0 % Final Platelet Count Date Value Ref Range Status 02/14/2023 271 150 - 400 k/uL Final MPV Date Value Ref Range Status 02/14/2023 9.6 9.0 - 12.7 fL Final Abs Neut Date Value Ref Range Status 02/14/2023 6.69 1.45 - 7.50 k/uL Final Lymphocytes % Date Value Ref Range Status 02/14/2023 24.6 % Final Abs Lymph Date Value Ref Range Status 02/14/2023 2.56 1.00 - 4.00 k/uL Final Monocytes % Date Value Ref Range Status 02/14/2023 8.3 % Final Abs [place] Date Value Ref Range Status 02/14/2023 0.86 <0.87 k/uL Final Eosinophils % Date Value Ref Range Status 02/14/2023 1.9 % Final Abs Eosin Date Value Ref Range Status 02/14/2023 0.20 <0.46 k/uL Final Basophils % Date Value Ref Range Status 02/14/2023 0.4 % Final Abs Baso Date Value Ref Range Status 02/14/2023 0.04 <0.11 k/uL Final PATH: R Breast Lumpectomy 10/2022: Imaging: Assessment and Plan: Harman Mcleod is a 82 year old year old female here for follow up. R Breast T1b,N0,M0- ER and HI >95% positive and Her-2 IHC 1+ tumor post Lumpectomy and SNL 10/2022. Reviewed path and she elected not to proceed with XRT and started Arimidex in 11/2022 and toleraing well. Plan for 5 years of therapy. Osteoporosis- On Prolia started 08/[address] 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 If there are any questions and or concerns please do not hesitate to contact me at [phone]. Wallace Stone MD Hematology/Medical Oncology [facility] spent a total of 30 minutes on the date of the service which included preparing to see the patient, [id number] patient care, completing clinical documentation, obtaining and/or reviewing separately obtained history, performing a medically appropriate examination, counseling and educating the pat ient/family/caregiver, and ordering medications, tests, or procedures. CC: MD Mateus Spicer MD [facility] note* Encounter Date Diagnosis Assessment Notes Treatment Notes Treatment Clinical Notes Nov, Edema of right lower leg (ICD-10 - R60.0) We reviewed the findings on her recent right leg venogram which showed normal-appearing right common iliac vein and IVC. She has diminished surface area of the right common and right external iliac veins. The right common iliac vein diameter was 97 mm in the right external iliac vein reference area diameter was 78.8. The average is 200 for the right common iliac vein and 150 for the right external vein. We found no surgical identifiable cause for edema of the right leg. We discussed this at length. I discussed conservative therapy efforts for control of edema to include continued compression socks, leg elevation, and increased activity along with weight management. She tells me she has done physical therapy in the past and this has not helped her. I believe she may benefit from venous/lymphatic pumps for home use for control of swelling. We did measure her legs in the office today and we will send to our venous rep who will contact her in the near future. We discussed the importance of continued conservative efforts and when she is sitting and not to leave her legs in a dependent position. We recommend additional physical therapy to increase her exercise tolerance and may be aid in a little bit of weight management. At this point in time, she would like to try the pumps but will hold off on physical therapy and discuss this further with her primary care provider. 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 We will continue to follow her along and see her again in a couple of months and see how she is doing with her pumps, conservative efforts, and weight management. She knows to call us in the meantime with any other additional concerns or complaints. [facility] Other [facility]-21-2023 [facility] Evaluation note* Encounter Date Diagnosis Assessment Notes Treatment Notes Treatment Clinical Notes Nov, Swelling of right lower extremity (ICD-10 - M79.89) This patient's been complaining of this for quite some time. The patient states it is getting worse. We have 2 different ultrasounds showing no DVT in the visualized veins of the right lower extremity. At this point time I am recommending a right iliac venogram for further diagnostic work-up. We need additional information. It is possible the patient has a DVT involving the iliac veins only. This would not show up on ultrasound due to the patient's abdominal girth and elevated BMI. We can also look for stenoses of the iliac vein which may be impeding blood flow and causing right leg swelling as well. We will schedule this in the near future for further diagnostic work-up. This is explained to the patient and the family understand agree with the plan all her questions were addressed we will schedule this in the near future. Nov, Pain in right lower leg (ICD-10 - M79.661) Nov, Other specified soft tissue disorders (ICD-10 - M79.89) [facility] Other 03-08-2023 Miscellaneous Notes* Telephone Encounter - Adriana Pereira [facility] - 11/16/2022 8:40 AM EST Called Vascular office spoke with Jessy. They have received this referral and have patient scheduledwith Dr Gonzales on 11/23 @ 10:00. Adriana Pereira [facility] * Telephone Encounter - Kira Ko [facility] - 11/10/2022 9:38 AM EST Records faxed. * Telephone Encounter - Adriana Pereira [facility] - 11/10/2022 8:46 AM EST Janeth: Information ready for you. Adriana Pereira [facility] * Telephone Encounter - Carlos Brooks - 11/09/2022 2:44 PM EST Vascular Consult [facility] [place] Previous patient of Dr. Mendez 3 years or more. Janeth/Dudley: Can you please refer patient and follow up? Thanks! Carlos Brooks documented in this encounterTrihealth03-01-2023 NoteHNO ID: [id number] Author: Wallace Stone MD Service: ? Author Type: Physician Type: Progress Notes Filed: 11/09/2022 2:24 PM Note Text: PATIENT NAME: Harman Mcleod CLINIC NO.: [id number] ATTENDING PHYSICIAN: Wallace Stone MD DATE OF SERVICE: November 09, [address] Banks referring provider defined for this encounter. here is an update on a follow up visit on female Harman Mcleod at the clinic 11/09/2022 Diagnosis: T1b, N0, M0- R breast, Tumor 9 mm, Grade 2, Margins negative, Negative LVI, 2 SNL negative, ER and HI >95% positive, Her2 IHC 1+ Treatment History: R Breast Lumpectomy and SNL 10/19/2022 HPI: Harman Mcleod is a 82 year old year old female here for follow up. Doing well after surgery but has had swelling in the R leg and some pain. She has had a stent in that leg before. She did have an US of the leg which was negative for a clot. She tolerated the procedure well and also denies any abdominal pains and good range of motion in her arm as well. 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 Social History Tobacco Use Smoking status: Former Packs/day: 0.50 Years: 50.00 Pack years: 25.00 Types: Cigarettes Quit date: 06/28/2018 Years since quittin.3 Passive exposure: Past Smokeless tobacco: Never Vaping Use Vaping Use: Never used Substance Use Topics Alcohol use: No Drug use: No FAMILY HISTORY Problem Relation Age of Onset Hypertension Mother Hyperlipidemia Mother other (non-insulin dependent diabetes mellitus) Mother other (heart disease) Mother other (cerebrovascular accident hypothyroid) Mother Cancer Father Arthritis Father Hypertension Father Asthma Father other (heart disease) Father Breast Cancer Sister Breast Cancer Other Past medical, social and family history reviewed without any changes. REVIEW OF SYSTEMS GENERAL: No weight loss, malaise or fevers. No night sweats. HEENT: Negative for headaches, No changes in hearing or vision, no nose bleeds or other nasal problems. RESPIRATORY: Negative for cough, wheezing and shortness of breath CARDIOVASCULAR: Negative for chest pain, leg swelling and palpitations GI: Negative for abdominal discomfort, blood in stools or black stools and change in bowel habits : Negative for dysuria, frequency and incontinence MUSCULOSKELETAL: Negative for joint pain or swelling, back pain, and muscle pain. SKIN: Negative for lesions, rash, and itching. HEMATOLOGY/LYMPHOLOGY Negative for prolonged bleeding, bruising easily, and swollen nodes. NEURO: Negative for numbness or tingling of hands/feet. No weakness. PHYSICAL EXAMINATION: BP 142/72 Pulse 66 Temp (Src) 97.1 (Temporal) Resp 18 Ht 5' .984 (1.55m) Wt 186 lb 12.8 oz (84.7kg) SpO2 100% BMI 35.31 kg/(m2). Wt 84.7 kg (186 lb 12.8 oz) BMI 35.31 kg/m2 Last 3 Encounter Wt Readings: Date: Wt: 11/09/2022 84.7 kg (186 lb 12.8 oz) 09/22/2022 84.8 kg (187 lb) 05/29/2020 90.4 kg (199 lb 6.4 oz) General appearance:ECOG PERFORMANCE STATUS: 1- Restricted in physically strenuous activity. Carries out light duty. Patient in NAD. Skin: Skin color, texture, turgor normal. No rashes or lesions. Eyes: Anicteric sclera. Pupils are equally round and reactive to light. Extraocular movements are intact. Lymph Nodes: No cervical, supraclavicular, axillary or inguinal adenopathy. Oropharynx: Lips, mucosa, and tongue normal. Back: No pain to percussion. Negative SLR test Lungs clear to auscultation, No wheezing or rhonchi Heart: RRR without murmur, gallop, or rubs. Abdomen soft, non-tender. No masses, organomegaly Extremities: No deformities. No edema Neuro: Gait and speech normal. Reflexes normal and symmetric. Muscular strength intact. Sensation grossly intact. Rectal: Deferred : Deferred LABS: Glucose (mg/dL) Date Value 04/28/2020 114 Potassium (mmol/L) Date Value 04/28/2020 4.7 Sodium (mmol/L) Date Value 04/28/2020 140 Chloride (mmol/L) Date Value 04/28/2020 101 CO2 (mmol/L) Date Value 04/28/2020 28 Creatinine (mg/dL) Date Value 04/28/2020 1.12 BUN (mg/dL) Date Value 0 (more content not included)...[facility]03-01-2023 History of Present illness Narrative* Wallace Stone MD - 11/09/2022 2:00 PM EST Images from the original note were not included. PATIENT NAME: Harman Mcleod CLINIC NO.: [id number] ATTENDING PHYSICIAN: Wallace Stone MD DATE OF SERVICE: November 09, [address] Banks referring provider defined for this encounter. here is an update on a follow up visit on female Harman Mcleod at the clinic 11/09/2022 Diagnosis: T1b, N0, M0- R breast, Tumor 9 mm, Grade 2, Margins negative, Negative LVI, 2 SNL negative, ER and HI >95% positive, Her2 IHC 1+ Treatment History: R Breast Lumpectomy and SNL 10/19/2022 HPI: Harman Mcleod is a 82 year old year old female here for follow up. Doing well after surgery but has had swelling in the R leg and some pain. She has had a stent in that leg before. She did have anUS of the leg which was negative for a clot. She tolerated the procedure well and also denies any abdominal pains and good range of motion in her arm as well. 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 Social History Tobacco Use Smoking status: Former Packs/day: 0.50 Years: 50.00 Pack years: 25.00 Types: Cigarettes Quit date: 06/28/2018 Years since quittin.3 Passive exposure: Past Smokeless tobacco: Never Vaping Use Vaping Use: Never used Substance Use Topics Alcohol use: No Drug use: No FAMILY HISTORY Problem Relation Age of Onset Hypertension Mother Hyperlipidemia Mother other (non-insulin dependent diabetes mellitus) Mother other (heart disease) Mother other (cerebrovascular accident hypothyroid) Mother Cancer Father Arthritis Father Hypertension Father Asthma Father other (heart disease) Father Breast Cancer Sister Breast Cancer Other Past medical, social and family history reviewed without any changes. REVIEW OF SYSTEMS GENERAL: No weight loss, malaise or fevers. No night sweats. HEENT: Negative for headaches, No changes in hearing or vision, no nose bleeds or other nasal problems. RESPIRATORY: Negative for cough, wheezing and shortness of breath CARDIOVASCULAR: Negative for chest pain, leg swelling and palpitations GI: Negative for abdominal discomfort, blood in stools or black stools and change in bowel habits : Negative for dysuria, frequency and incontinence MUSCULOSKELETAL: Negative for joint pain or swelling, back pain, and muscle pain. SKIN: Negative for lesions, rash, and itching. HEMATOLOGY/LYMPHOLOGY Negative for prolonged bleeding, bruising easily, and swollen nodes. NEURO: Negative for numbness or tingling of hands/feet. No weakness. PHYSICAL EXAMINATION: BP 142/72 Pulse 66 Temp (Src) 97.1 (Temporal) Resp 18 Ht 5' .984 (1.55m) Wt 186 lb 12.8 oz (84.7kg) SpO2 100% BMI 35.31 kg/(m^2). Wt 84.7 kg (186 lb 12.8 oz) BMI 35.31 kg/m2 Last 3 Encounter Wt Readings: Date: Wt: 11/09/2022 84.7 kg (186 lb 12.8 oz) 09/22/2022 84.8 kg (187 lb) 05/29/2020 90.4 kg (199 lb 6.4 oz) General appearance:ECOG PERFORMANCE STATUS: 1- Restricted in physically strenuous activity. Carries out light duty. Patient in NAD. Skin: Skin color, texture, turgor normal. No rashes or lesions. Eyes: Anicteric sclera. Pupils are equally round and reactive to light. Extraocular movements are intact. Lymph Nodes: No cervical, supraclavicular, axillary or inguinal adenopathy. Oropharynx: Lips, mucosa, and tongue normal. Back: No pain to percussion. Negative SLR test Lungs clear to auscultation, No wheezing or rhonchi Heart: RRR without murmur, gallop, or rubs. Abdomen soft, non-tender. No masses, organomegaly Extremities: No deformities. No edema Neuro: Gait and speech normal. Reflexes normal and symmetric. Muscular strength intact. Sensation grossly intact. Rectal: Deferred : Deferred LABS: Glucose (mg/dL) Date Value 04/28/2020 114 Potassium (mmol/L) Date Value 04/28/2020 4.7 Sodium (mmol/L) Date Value 04/28/2020 140 Chloride (mmol/L) Date Value 04/28/2020 101 CO2 (mmol/L) Date Value 04/28/2020 28 Creatinine (mg/dL) Date Value 04/28/2020 1.12 BUN (mg/dL) Date Value 04/28/2020 24 Anion Gap (mmol/L) Date Value 04/28/2020 11 Calcium (mg/dL) Date Value 04/28/2020 9.5 Protein, Total (g/dL) Date Value 10/24/2017 7.3 Albumin (g/dL) Date Value 10/24/2017 3.9 Bilirubin, Total (mg/dL) Date Value 10/24/2017 0.4 Alkaline Phosphatase (U/L) Date Value 10/24/2017 94 AST (U/L) Date Value 10/24/2017 16 ALT (U/L) Date Value 10/24/2017 9 WBC Date Value Ref Range Status 04/28/2020 10.51 3.70 - 11.00 k/uL Final RBC Date Value Ref Range Status 04/28/2020 4.28 3.90 - 5.20 m/uL Final Hemoglobin Date Value Ref Range Status 04/28/2020 13.3 11.5 - 15.5 g/dL Final Hematocrit Date Value Ref Range Status 04/28/2020 40.6 36.0 - 46.0 % Final MCV Date Value Ref Range Status 04/28/2020 94.9 80.0 - 100.0 fL Final MCH Date Value Ref Range Status 04/28/2020 31.1 26.0 - 34.0 pG Final MCHC Date Value Ref Range Status 04/28/2020 32.8 30.5 - 36.0 g/dL Final RDW-CV Date Value Ref Range Status 04/28/2020 14.1 11.5 - 15.0 % Final Platelet Count Date Value Ref Range Status 04/28/2020 264 150 - 400 k/uL Final MPV Date Value Ref Range Status 04/28/2020 10.2 9.0 - 12.7 fL Final PATH: R Breast Lumpectomy 10/2022: Imaging: Assessment and Plan: Harman Mcleod is a 82 year old year old female here for follow up. R Breast T1b,N0,M0- ER and HI >95% positive and Her-2 IHC 1+ tumor post Lumpectomy and SNL 10/2022. Reviewed path and she may skip radiation and also discussed hormonal; therapy with an AI and she will start Arimidex. Discussed adverse events and she wishes to proceed. Osteoporosis- On Prolia started 08/[address] Perry Vulvar high grade dysplasia- Follows [facility] at [facility] and next appointment 11/24/2022 CRI R Leg swelling and pain and h/o PVD- refer to vascular HTN Thank you for the kind referral. If there are any questions and or concerns please do not hesitate to contact me at [phone]. Wallace Stone MD Hematology/Medical Oncology [facility] I spent a total of 30 minutes on the date of the service which included preparing to see the patient, [id number] patient care, completing clinical documentation, obtaining and/or reviewing separately obtained history, performing a medically appropriate examination, counseling and educating the pat ient/family/caregiver, and ordering medications, tests, or procedures. CC: MD Mateus Spicer MD documented in this encounterTrihealth02-08-2023 NoteOPERATIVE NOTE OPERATION DATE: 10/19/2022 PREOPERATIVE DIAGNOSIS: Right breast cancer. POSTOPERATIVE DIAGNOSIS: Right breast cancer. PROCEDURE: Needle localized right breast lumpectomy with sentinel lymph node biopsy. SURGEON: Iliana Gagnon M.D. ANESTHESIA: General laryngeal mask airway. WEBSPHERE PORTAL DEVELOPER: SADI Hammer ESTIMATED BLOOD LOSS: Less than 20 mL. INDICATIONS AND CONSENT: Patient is an 82-year-old female recently diagnosed with infiltrating ductal carcinoma of the right breast in the upper outer quadrant. She presents for right breast lumpectomy and sentinel node biopsy. She underwent needle localization and sentinel node injection down in X-ray this morning. Indications, risks, benefits, alternatives of proceeding were explained extensively to the patient, including the risks of bleeding, infection, scarring, pain, nerve injury, arm swelling, blood clot, pulmonary embolus, heart attack, anesthetic complications, need for further breast or axillary surgery. All of her questions were answered. Informed consent was obtained. PROCEDURE: Patient was brought to the operating room, placed in the supine position. General anesthesia was induced. The half strength methylene blue was then injected near the tumor site at the edge of the nipple areolar border intradermally, approximately 3 cc. The patient was then prepped and draped in the usual sterile fashion. Curvilinear incision was made in the right axilla, below the area of hair bearing skin and carried down through subcutaneous tissue using sharp dissection as well as electrocautery. Clavipectoral fascia was incised. The probe was then used to identify an area of increased uptake. Within the mid axilla, there was noted to be an enlarged blue node with increased activity. This was dissected free using clips to control vessels and lymphatics, as well as the harmonic scalpel. Once this was removed, ex vivo counts were increased and it was noted to be blue. A second smaller node deeper to this was also identified with increased activity and blue dye. This was removed in identical fashion. Axilla was then probed. No other areas of increased activity were noted. No other enlarged nodes were palpated and no other lymphatics showing blue dye within them were noted. The axilla was irrigated. Subcutaneous tissue was closed with interrupted 3-0 Monocryl sutures. Attention was then turned to the breast, where the curvilinear incision was made superior and lateral, at the edge of the nipple areolar border, just medial to the wire. It was carried down through subcutaneous tissue using electrocautery. Superior and inferior skin flaps were raised. The wire was then brought out into the central field. The nodule could be palpated. The area was excised down to the pectoralis fascia with a 1 cm margin around the palpable mass. It was then sent off to Pathology. There was some scarring that appeared to be close at the posterior inferior lateral margin; therefore, an additional segment of breast tissue was excised and marked with a new inferior lateral margin. There was good hemostasis. The wound was irrigated. Some clips were placed in the cavity to show the extent of the lumpectomy site. Breast incision was then closed with interrupted 3-0 Monocryl, subcutaneous sutures and 4-0 Monocryl subcuticular suture. Skin glue was applied as well as sterile pressure dressings, and the patient's bra. Sponge and needle counts were correct x2 per nursing personnel. Patient tolerated procedure well, was sent to recovery room in good condition. CC: Mateus Perry M.D.[facility] [id number] NoteEXAMINATION: XR CHEST 2 V HISTORY: Pre-surgery evaluation COMPARISON: XR chest 08/13/2022 FINDINGS: LUNGS: No significant pulmonary parenchymal abnormalities. VASCULATURE: No increased pulmonary vasculature. PLEURA: No pneumothorax, effusion, or pleural thickening. CARDIAC: No cardiomegaly or cardiac silhouette abnormality. MEDIASTINUM: No visible mass or adenopathy. BONES: No fracture or visible bone lesion. OTHER: Negative. IMPRESSION: 1. Hyperexpanded lungs without appreciable infiltrates or mass. Electronically authenticated by: ALFONSO GEORGE Date: 2022-10-11 12:11[facility]01-13-2023 NoteHNO ID: [id number] Author: Marcin Shah MD Service: ? Author Type: Physician Type: Progress Notes Filed: 2022 6:06 AM Note Text: Radiation Oncology - New Patient/Consult Note PATIENT NAME: Harman Mcleod PATIENT REQUESTING PHYSICIAN: Dr. 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 PATIENT IDENTIFICATION: This patient was seen in the Department of Radiation Oncology at the [facility] with Marcin Shah MD. She was accompanied today by her family. Final recommendations will be communicated back to the requesting physician by way of the shared medical record, or letter to requesting physician via US mail. HISTORY OF PRESENT ILLNESS: Ms. Mcleod is an 82-year-old woman from [place], [place] who was discovered on screening mammogram from July 2022 to have an abnormality within the anterior upper outer quadrant of the right breast. 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 She has met with Dr. Gagnon to discuss her surgical treatment options likely planning for lumpectomy/breast conservation with sentinel node biopsy. She has met with my colleague Dr. Stone to discuss her systemic therapy options and is referred today to the radiation medicine clinic to have a discussion regarding the role of radiation therapy in the postoperative treatment of her early stage breast cancer. INTERVAL/HISTORY/REVIEW OF SYSTEMS: Ms. Mcleod reports no palpable abnormality in the area of disease identified in the right breast with no pain or discomfort in the breast or discharge from the nipple. She recent episode of bronchitis as well as loss of appetite and nausea over the past 2 weeks and dyspnea on exertion. She has issues with balance as well as memory but otherwise denies any recent new headaches, difficulty with speech/swallowing, chest pain/palpitations, abdominal pain, vomiting, change in bowel/urinary function. The remainder of the review of systems was performed and was otherwise non-contributory except as described above. 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 PAST SURGICAL HISTORY: PAST SURGICAL HISTORY Procedure Laterality Date APPENDECTOMY HX SECTION HX DILATION AND CURETTAGE Uterus for SAB LOOPOGRAM HYSTERECTOMY HX PAST SURGICAL HISTORY OF cardiac sent PAST SURGICAL HISTORY OF Repair of aneurysm PAST SURGICAL HISTORY OF Bladder reconstruction PRQ CARDIAC STENT W/ANGIO 1 VSL SLING OPER STRES INCONTINENCE VAGINOSCOPY VULVECTOMY SIMPLE PARTIAL 04/30/2020 EUA, vaginal bx, vaginal laser, partial vulvectomy FAMILY HISTORY: FAMILY HISTORY Problem Relation Age of Onset Hypertension Mother Hyperlipidemia Mother other (non-insulin dependent diabetes mellitus) Mother other (heart disease) Mother other (cerebrovascular accident hypothyroid) Mother Cancer Father Arthritis Father Hypertension Father Asthma Father other (heart disease) Father Breast Cancer Sister Breast Cancer Other SOCIAL HISTORY: Social History Tobacco Use Smoking status: Former Packs/day: 0.50 Years: 50.00 Pack years: 25.00 Types: Cigarettes Quit date: 06/28/2018 Years since quittin.2 Passive exposure: Past Smokeless tobacco: Never Vaping Use Vaping Use: Never used Substance Use Topics Alcohol use: No Drug use: No RADIATION HISTORY: The patient denies any history of therapeutic radiation. ALLERGIES: ALLERGIES Allergen Reactions Cefdinir Other: See Comments, Vomiting Ciprofloxacin Other: See Comments tendon issues Oxycodone-Acetamino* Intolerance, GI Upset MEDICATIONS: Current Outpatient Medications: potassium chloride 20 mEq TbER levoFLOXacin (LEVAQUIN) 750 mg tablet sucralfate (CARAFATE) 1 gram tablet liothyronine (CYTOMEL) 5 mcg tablet ondansetron (ZOFRAN) [address] (PROTONIX) 40 mg tablet acetaminophen (TYLENOL EXTRA STRENGTH (more content not included)...[facility]01-12-2023 History of Present illness Narrative* Marcin Shah MD - 09/22/2022 11:38 PM EST Images from the original note were not included. Radiation Oncology - New Patient/Consult Note PATIENT NAME: Harman Mcleod PATIENT Signed: Marcin Shah MD I spent a total of 60 minutes on the date of the service which included preparing to see the patient, [id number] patient care, and counseling and educating the patient/family/caregiver. This document has been created with the use of voice recognition technology. It may contain inaccuracies, misspellings, inaccurate syntax or inappropriate word context that are a result of the inadequacies/shortcomings of said technology/software. documented in this encounterTrihealth01-12-2023 NoteHNO ID: [id number] Author: Wallace Stone MD Service: ? Author Type: Physician Type: Progress Notes Filed: 09/22/2022 5:19 PM Note Text: PATIENT NAME: Harman Mcelod [facility] NO.: [id number] ATTENDING PHYSICIAN: Wallace Stone MD DATE OF SERVICE: September 22, [address] Iliana Gagnon, thank you for referring Mrs Harman Mcleod for an opinion regarding newly diagnosed breast cancer. CHIEF COMPLAINT: I have breast cancer HPI: Harman Mcleod is a 81 year old year old female with past medical history significant for multiple comorbidities including coronary artery disease, atrial fibrillation on Eliquis, hypertension, diabetes, COPD, hyperlipidemia, peripheral vascular disease, stage II chronic renal insufficiency who had undergone a screening mammography and July 2022 which demonstrated an 8 mm poorly defined mass within the anterior upper outer quadrant, approximately 9-10 o'clock in the right breast. This led to additional imaging studies including an ultrasound which demonstrated a 10 x 9 x 9 mm hypoechoic mass with irregular margin in the right breast. The patient subsequently underwent an ultrasound-guided core biopsy in August 2022 which demonstrated invasive ductal carcinoma, provisional grade 1 through 2, ER and HI greater than 95% positive, HER2/holden negative with an IHC score of 1+ and FISH negative at [facility]. This patient was subsequently referred to Dr. Iliana Gagnon for surgical consultation. Patient denies any previous history of abnormal mammograms and or breast biopsy. She has had a recent bone density in [place] and was diagnosed with osteoporosis and started on Prolia as well. Patient has a sister who was diagnosed with breast cancer at the age of 82 and her daughter diagnosed with breast cancer at the age of 37. She quit smoking approximately 4 years ago. 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 She denies any estrogen use. Current Outpatient Medications Medication Sig potassium chloride 20 mEq TbER TAKE 1 TABLET BY MOUTH THREE TIMES A DAY DO NOT CRUSH, CHEW, OR SPLIT. levoFLOXacin (LEVAQUIN) 750 mg tablet sucralfate (CARAFATE) 1 gram tablet Take 1 g by mouth four times daily. liothyronine (CYTOMEL) 5 mcg tablet Take 5 mcg by mouth once daily. ondansetron (ZOFRAN) 4 mg tablet Take 4 mg by mouth every 8 hours as needed for nausea/vomiting. pantoprazole DR (PROTONIX) 40 mg tablet Take 40 mg by mouth once daily. acetaminophen (TYLENOL EXTRA STRENGTH) 500 mg tablet Take 2 tablets by mouth every 6 hours as needed for Pain. docusate sodium (COLACE) 100 mg capsule Take 2 capsules by mouth at bedtime as needed (opioid-induced constipation). furosemide (LASIX) 20 mg tablet Take 20 mg by mouth twice daily. cetirizine (ZYRTEC) 10 mg tablet Take 10 mg by mouth twice daily. citalopram (CELEXA) 20 mg tablet apixaban (ELIQUIS) 2.5 mg tab(s) Take 5 mg by mouth twice daily. hydrALAZINE (APRESOLINE) 100 mg tablet Take 100 mg by mouth three times daily. hydroCHLOROthiazide (HYDRODIURIL, ESIDRIX) 12.5 mg tablet Take 12.5 mg by mouth once daily. metoprolol succinate ER (TOPROL XL) 200 mg 24 hr tablet metoprolol succinate ER 200 mg tablet,extended release 24 hr DULERA 100-5 mcg/actuation inhaler glimepiride (AMARYL) 4 mg tablet Take 4 mg by mouth twice daily with meals. BREO ELLIPTA 100-25 mcg/dose inhaler Inhale 1 Inhalation as instructed once daily. aspirin, enteric coated (ASPIRIN, ENTERIC COATED) 81 mg EC tablet Take 81 mg by mouth once daily. levothyroxine (SYNTHROID) 112 mcg tablet Take 125 mcg by mouth once daily. amLODIPine (NORVASC) 5 mg tablet Take by mouth once daily. metoprolol tartrate, short acting, (LOPRESSOR) 100 mg tablet Take 100 mg by mouth twice daily. Patient takes 1/2 tab 2x a day metFORMIN (GLUCOPHAGE) 500 mg tablet Take 500 mg by mouth twice daily with meals. albuterol (PROVENTIL) 2.5 mg /3 mL (0.083 %) nebulizer solution Use 2.5 mg via nebulizer as needed. ALBUTEROL SULFATE (VENTOLIN INHALATION) Inhale 2 Puffs as instructed as needed. simvastatin (ZOCOR) 20 mg tablet Take 40 mg by mouth daily at bedtime. Cut in half Fzhoa-8-[id number]-EPA-Fish Oil 1,000 mg (120 mg-180 mg) cap Take 2 g by mouth twice daily. isosorbide mononitrate ER (IMDUR) 60 mg 24 hr tablet Take 60 mg by mouth twice daily. No current facility-administered medications for this visit. ALLERGIES Allergen Reactions Cefdinir Other: See Comments, Vomiting Ciprofloxacin Other: See Comments tendon issues Oxycodone-Acetamino* Intolerance, GI Upset PAST MEDICAL HISTORY Diagnosis Date ASCUS with positive high risk HPV cervical Asthma Breast cancer (HCC) CAD (coronary artery disease) Chronic back pain Chronic kidney disease Chronic systolic heart failure (HCC) COPD (chronic obstructive pulmonary disease) (HCC) Disorder of bone and cartilage Diverticulosis DM type 2 (diabetes mellitus, type 2) (HCC) (more content not included)...[facility]01-12-2023 History of Present illness Narrative* Wallace Stone MD - 09/22/2022 5:10 PM EST Images from the original note were not included. PATIENT NAME: Harman Mcleod [facility] NO.: [id number] ATTENDING PHYSICIAN: Wallace Stone MD DATE OF SERVICE: September 22, [address] Iliana Gagnon, thank you for referring Mrs Harman Mcleod for an opinion regarding newly diagnosed breast cancer. CHIEF COMPLAINT: I have breast cancer HPI: Harman Mcleod is a 81 year old year old female with past medical history significant for multiple comorbidities including coronary artery disease, atrial fibrillation on Eliquis, hypertension, diabetes, COPD, hyperlipidemia, peripheral vascular disease, stage II chronic renal insufficiency who had undergone a screening mammography and July 2022 which demonstrated an 8 mm poorly defined mass within the anterior upper outer quadrant, approximately 9-10 o'clock in the right breast. This led to additional imaging studies including an ultrasound which demonstrated a 10 x 9 x 9 mm hypoechoic mass with irregular margin in the right breast. The patient subsequently underwent an ultrasound-guided core biopsy in August 2022 which demonstrated invasive ductal carcinoma, provisional grade 1 through 2, ER and HI greater than 95% positive, HER2/holden negative with an IHC score of 1+ and FISH negative at [facility]. This patient was subsequently referred to Dr. Iliana Gagnon for surgical consultation. Patient denies any previous history of abnormal mammograms and or breast biopsy. She has had a recent bone density in [place] and was diagnosed with osteoporosis and started on Prolia as well. Patient has a sister who was diagnosed with breast cancer at the age of 82 and her daughter diagnosed with breast cancer at the age of 37. She quit smoking approximately 4 years ago. 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 She denies any estrogen use. Current Outpatient Medications Medication Sig potassium chloride 20 mEq TbER TAKE 1 TABLET BY MOUTH THREE TIMES A DAY DO NOT CRUSH, CHEW, OR SPLIT. levoFLOXacin (LEVAQUIN) 750 mg tablet sucralfate (CARAFATE) 1 gram tablet Take 1 g by mouth four times daily. liothyronine (CYTOMEL) 5 mcg tablet Take 5 mcg by mouth once daily. ondansetron (ZOFRAN) 4 mg tablet Take 4 mg by mouth every 8 hours as needed for nausea/vomiting. pantoprazole DR (PROTONIX) 40 mg tablet Take 40 mg by mouth once daily. acetaminophen (TYLENOL EXTRA STRENGTH) 500 mg tablet Take 2 tablets by mouth every 6 hours as needed for Pain. docusate sodium (COLACE) 100 mg capsule Take 2 capsules by mouth at bedtime as needed (opioid-induced constipation). furosemide (LASIX) 20 mg tablet Take 20 mg by mouth twice daily. cetirizine (ZYRTEC) 10 mg tablet Take 10 mg by mouth twice daily. citalopram (CELEXA) 20 mg tablet apixaban (ELIQUIS) 2.5 mg tab(s) Take 5 mg by mouth twice daily. hydrALAZINE (APRESOLINE) 100 mg tablet Take 100 mg by mouth three times daily. hydroCHLOROthiazide (HYDRODIURIL, ESIDRIX) 12.5 mg tablet Take 12.5 mg by mouth once daily. metoprolol succinate ER (TOPROL XL) 200 mg 24 hr tablet metoprolol succinate ER 200 mg tablet,extended release 24 hr DULERA 100-5 mcg/actuation inhaler glimepiride (AMARYL) 4 mg tablet Take 4 mg by mouth twice daily with meals. BREO ELLIPTA 100-25 mcg/dose inhaler Inhale 1 Inhalation as instructed once daily. aspirin, enteric coated (ASPIRIN, ENTERIC COATED) 81 mg EC tablet Take 81 mg by mouth once daily. levothyroxine (SYNTHROID) 112 mcg tablet Take 125 mcg by mouth once daily. amLODIPine (NORVASC) 5 mg tablet Take by mouth once daily. metoprolol tartrate, short acting, (LOPRESSOR) 100 mg tablet Take 100 mg by mouth twice daily. Patient takes 1/2 tab 2x a day metFORMIN (GLUCOPHAGE) 500 mg tablet Take 500 mg by mouth twice daily with meals. albuterol (PROVENTIL) 2.5 mg /3 mL (0.083 %) nebulizer solution Use 2.5 mg via nebulizer as needed. ALBUTEROL SULFATE (VENTOLIN INHALATION) Inhale 2 Puffs as instructed as needed. simvastatin (ZOCOR) 20 mg tablet Take 40 mg by mouth daily at bedtime. Cut in half [id number]-7-AFK-EPA-Fish Oil 1,000 mg (120 mg-180 mg) cap Take 2 g by mouth twice daily. isosorbide mononitrate ER (IMDUR) 60 mg 24 hr tablet Take 60 mg by mouth twice daily. No current facility-administered medications for this visit. 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 PAST SURGICAL HISTORY Procedure Laterality Date APPENDECTOMY HX SECTION HX DILATION & CURETTAGE Uterus for SAB LOOPOGRAM HYSTERECTOMY HX PAST SURGICAL HISTORY OF cardiac sent PAST SURGICAL HISTORY OF Repair of aneurysm PAST SURGICAL HISTORY OF Bladder reconstruction PRQ CARDIAC STENT W/ANGIO 1 VSL SLING OPER STRES INCONTINENCE VAGINOSCOPY VULVECTOMY SIMPLE PARTIAL 04/30/2020 EUA, vaginal bx, vaginal laser, partial vulvectomy FAMILY HISTORY Problem Relation Age of Onset Hypertension Mother Hyperlipidemia Mother other (non-insulin dependent diabetes mellitus) Mother other (heart disease) Mother other (cerebrovascular accident hypothyroid) Mother Cancer Father Arthritis Father Hypertension Father Asthma Father other (heart disease) Father Breast Cancer Sister Breast Cancer Other Social History Tobacco Use Smoking status: Former Packs/day: 0.50 Years: 50.00 Pack years: 25.00 Types: Cigarettes Quit date: 06/28/2018 Years since quittin.2 Passive exposure: Past Smokeless tobacco: Never Vaping Use Vaping Use: Never used Substance Use Topics Alcohol use: No Drug use: No REVIEW OF SYSTEMS GENERAL: No weight loss, malaise or fevers. No night sweats. HEENT: Negative for headaches, No changes in hearing or vision, no nose bleeds or other nasal problems. RESPIRATORY: Negative for cough, wheezing and shortness of breath CARDIOVASCULAR: Negative for chest pain, leg swelling and palpitations GI: Negative for abdominal discomfort, blood in stools or black stools and change in bowel habits : Negative for dysuria, frequency and incontinence MUSCULOSKELETAL: Negative for joint pain or swelling, back pain, and muscle pain. SKIN: Negative for lesions, rash, and itching. HEMATOLOGY/LYMPHOLOGY Negative for prolonged bleeding, bruising easily, and swollen nodes. NEURO: Negative for numbness or tingling of hands/feet. No weakness. PHYSICAL EXAMINATION: BP 137/64 Pulse 70 Temp 36.6 C (97.8 F) (Temporal) Resp 16 Ht 154.9 cm (5' 1 ) Wt 84.8 kg(187 lb) SpO2 94% BMI 35.33 kg/m Wt 84.8 kg (187 lb) BMI 35.33 kg/m2 Last 3 Encounter Wt Readings: Date: Wt: 09/22/2022 84.8 kg (187 lb) 05/29/2020 90.4 kg (199 lb 6.4 oz) 04/28/2020 88.9 kg (196 lb) General appearance:ECOG PERFORMANCE STATUS: 1- Restricted in physically strenuous activity. Carries out light duty. Patient in NAD. Skin: Skin color, texture, turgor normal. No rashes or lesions. Eyes: Anicteric sclera. Pupils are equally round and reactive to light. Extraocular movements are intact. Breast: No palpable breast masses. No nipple change or discharge. Lymph Nodes: No cervical, supraclavicular, axillary or inguinal adenopathy. Oropharynx: Lips, mucosa, and tongue normal. Back: No pain to percussion. Negative SLR test Lungs clear to auscultation, No wheezing or rhonchi Heart: RRR without murmur, gallop, or rubs. Abdomen soft, non-tender. No masses, organomegaly Extremities: No deformities. No edema Neuro: Gait and speech normal. Reflexes normal and symmetric. Muscular strength intact. Sensation grossly intact. Rectal: Deferred : Deferred LABS: Glucose (mg/dL) Date Value 04/28/2020 114 Potassium (mmol/L) Date Value 04/28/2020 4.7 Sodium (mmol/L) Date Value 04/28/2020 140 Chloride (mmol/L) Date Value 04/28/2020 101 CO2 (mmol/L) Date Value 04/28/2020 28 Creatinine (mg/dL) Date Value 04/28/2020 1.12 BUN (mg/dL) Date Value 04/28/2020 24 Anion Gap (mmol/L) Date Value 04/28/2020 11 Calcium (mg/dL) Date Value 04/28/2020 9.5 Protein, Total (g/dL) Date Value 10/24/2017 7.3 Albumin (g/dL) Date Value 10/24/2017 3.9 Bilirubin, Total (mg/dL) Date Value 10/24/2017 0.4 Alkaline Phosphatase (U/L) Date Value 10/24/2017 94 AST (U/L) Date Value 10/24/2017 16 ALT (U/L) Date Value 10/24/2017 9 WBC Date Value Ref Range Status 04/28/2020 10.51 3.70 - 11.00 k/uL Final RBC Date Value Ref Range Status 04/28/2020 4.28 3.90 - 5.20 m/uL Final Hemoglobin Date Value Ref Range Status 04/28/2020 13.3 11.5 - 15.5 g/dL Final Hematocrit Date Value Ref Range Status 04/28/2020 40.6 36.0 - 46.0 % Final MCV Date Value Ref Range Status 04/28/2020 94.9 80.0 - 100.0 fL Final MCH Date Value Ref Range Status 04/28/2020 31.1 26.0 - 34.0 pG Final MCHC Date Value Ref Range Status 04/28/2020 32.8 30.5 - 36.0 g/dL Final RDW-CV Date Value Ref Range Status 04/28/2020 14.1 11.5 - 15.0 % Final Platelet Count Date Value Ref Range Status 04/28/2020 264 150 - 400 k/uL Final MPV Date Value Ref Range Status 04/28/2020 10.2 9.0 - 12.7 fL Final PATH: R Breast Biopsy 08/2022: IMAGING: ASSESSMENT AND PLAN: Harman Mcleod is a 81 year old year old female past medical history significant for multiple comorbidities with a newly diagnosed right invasive ductal carcinoma, provisional grade 1-2, ER and HI greater than 95% positive, HER2/holden negative with an IHC 1+. I had a lengthy discussion with the patient in regards to management of early-stage breast cancer and the role of adjuvant therapy. At this time she is planning to undergo surgery including a sentinel lymph node biopsy by Dr. Gagnon.If the tumor ends up being consistent with the above pathology with no lymph node involvement and less than 2 cm 1 can consider foregoing radiation therapy. We had a discussion in regards to the roleof aromatase inhibitors as well in the management breast cancer and its toxicity. She states that she has been diagnosed with osteoporosis and was started on Prolia in August 2022which will continue through Dr. 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 Paroxysmal atrial fibrillation on Eliquis Chronic renal insufficiency Hypertension Hyperlipidemia Dear Dr. Iliana Gagnon, thank you for allowing me to participate in Mrs. Harman Mcleod care, ifthere are any questions or concerns please do not hesitate to contact me at the number below. Wallace Stone M.D. Hematology/Medical Oncology [facility] [phone] CC: MD Mateus Spicer MD I spent a total of 60 minutes on the date of the service which included preparing to see the patient, [id number] patient care, completing clinical documentation, obtaining and/or reviewing separately obtained history, performing a medically appropriate examination, counseling and educating the pat ient/family/caregiver, ordering medications, tests, or procedures, and communicating with other HCPs (not separately reported). documented in this encounterTrihealth01-12-2023 Miscellaneous Notes* Telephone Encounter - Lars Wilkerson RN - 09/22/2022 3:52 PM EST Images from the original note were not included. Wallace Stone MD You 2 hours ago (1:49 PM) Ok. * Telephone Encounter - Lars Wilkerson RN - 09/22/2022 1:40 PM EST Call placed to Zaikya at Dr Gagnon's office. Pt had cardiac clearance on 09/16/22 and is scheduled for surgery on 10/19/22. There are a few different things that have to be coordinated for her surgery and as of now this date is going to work for everything involved. Lars Wilkerson RN documented in this encounterTrihealth01-06-2023 NoteCardiology Clinic Note Subjective Harman Mcleod is a 81 y.o. year old female patient with f CAD s/p PCI to RCA, PAD s/p stenting, HFimpEF, hypertension, and PAF on Eliquis seen in follow-up. She had a breast biopsy last month which was positive for breast cancer and has been recommended a lumpectomy. She reports feeling well, stable dyspnea on exertion, denies chest pain or palpitations. 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 diastolic (congestive) heart failure (CMS/HCC) BMI 36.0-36.9,adult Brain stem vertigo Breast cancer of upper-outer quadrant of right female breast (CMS/HCC) Cervical disc disease Chronic anticoagulation Chronic diastolic heart failure (CMS/HCC) Chronic low back pain Chronic obstructive pulmonary disease (CMS/HCC) Diverticulosis Edema Invasive ductal carcinoma of right breast (CMS/HCC) Osteopenia Pseudoaneurysm of femoral artery (CMS/HCC) Pure hypercholesterolemia Rectal bleeding Stage 2 chronic kidney disease Family History Problem Relation Name Age of Onset Stroke Mother Coronary artery disease Father Heart attack Father Social History Tobacco Use Smoking status: Former Types: Cigarettes Smokeless tobacco: Never Substance Use Topics Alcohol use: Not Currently Review of Systems Cardiovascular: Positive for leg swelling. Negative for chest pain and palpitations. All other systems reviewed and are negative. +ve dyspnea on exertion. Objective Visit Vitals BP 142/60 (BP Location: Left arm, Patient Position: Sitting) Pulse 64 Ht 1.549 m (5' 1 ) Wt 83.5 kg (184 lb) SpO2 96% BMI 34.77 kg/m??? Smoking Status Former BSA 1.9 m??? Physical Exam General: Awake, alert, good spirits. NAD Eyes: anicteric sclera. Non-injected conjunctiva. No xanthelasmas Neck: No elevated JVP. No carotid bruit Pulm: Bibasilar crackles Cards: Regular rate and rhythm, S1, S2. No S3 or S4 gallop. Murmur: grade II/ FLORESITA RUSB Abd: Soft, Nontender, physiologic bowel sounds are present Extr: Lower extremity edema: +1 RLE. DP pulses: weak Skin: warm, dry, well perfused Neuro: A&Ox3, No gross deficits Allergies Allergies Allergen Reactions Ciprofloxacin Hives and Other Other reaction(s): Other: See Comments tendon issues tendon issues Cefdinir Other Oxycodone Rash Rash & GI upset Oxycodone-Acetaminophen Other GI upset & rash Medications Current Outpatient Medications: albuterol 2.5 mg /3 mL (0.083 %) nebulizer solution, USE 1 VIAL IN NEBULIZER 4 TIMES DAILY NEEDED, Disp: , Rfl: apixaban (Eliquis) 5 mg tablet, Take 5 mg by mouth in the morning and at bedtime., Disp: , Rfl: aspirin 81 mg EC tablet, Take 81 mg by mouth., Disp: , Rfl: fish oil concentrate (Coolidge-3) 120-180 mg capsule, Take 1,000 mg by mouth., Disp: , Rfl: furosemide (Lasix) 40 mg tablet, Take 40 mg by mouth in the morning and at bedtime., Disp: , Rfl: glimepiride (Amaryl) 4 mg tablet, Take 4 mg by mouth in the morning and at bedtime., Disp: , Rfl: hydrALAZINE (Apresoline) 100 mg tablet, Take 100 mg by mouth in the morning, afternoon, and at bedtime., Disp: , Rfl: hydroCHLOROthiazide (HYDRODiuril) 12.5 mg tablet, Take 12.5 mg by mouth 1 (one) time each day., Disp: , Rfl: isosorbide mononitrate ER (Imdur) 60 mg 24 hr tablet, Take 60 mg by mouth in the morning., Disp: , Rfl: levothyroxine (Synthroid, Levoxyl) 112 mcg tablet, Take 112 mcg by mouth in the morning., Disp: , Rfl: liothyronine (Cytomel) 5 mcg tablet, Take 10 mcg by mouth in the morning., Disp: , Rfl: metFORMIN (Glucophage) 500 mg tablet, Take 500 mg by mouth in the morning and at bedtime., Disp: , Rfl: metoprolol succinate XL (Toprol-XL) 200 mg 24 hr tablet, Take 200 mg by mouth in the morning., Disp: , Rfl: potassium chloride CR (K-Tab) 20 mEq ER tablet, Take one tablet 3 times daily. Do not crush, chew, or split., Disp: 270 tablet, Rfl: 3 sucralfate (Carafate) 1 gram tablet, Take 1 g by mouth before breakfast, before lunch, before evening meal, and at bedtime., Disp: , Rfl: amLODIPine (Norvasc) 5 mg tablet, Take 1 tablet (5 mg) by mouth once daily as directed., Disp: 90 tablet, Rfl: 3 simvastatin (Zocor) 20 mg tablet, Take 1 tablet (20 mg) by mouth at bedtime., Disp: 90 tablet, Rfl: 3 Recent Labs 08/13/22: Hg (more content not included)...[facility] 09-16-2022 NotePatient here for 5 mo follow up CAD, PVD, CHF, and PAF. She needs the ok to hold aspirin and Eliquis for upcoming breast lumpectomy. Denies chest pain, SOB, and bleeding on Eliquis. Review of Systems Constitutional: Positive for malaise/fatigue. Cardiovascular: Positive for leg swelling. Neurological: Positive for tremors. All other systems reviewed and are negative.[facility] 09-09-2022 NoteChief Complaint consultation for right breast cancer HPI Staff 81 year old female presents on consultation from Dr. Perry for invasive ductal carcinoma right breast. Denies palpable breast mass. No breast pain or tenderness. Denies skin changes. No nipple discharge or inversion. Sister diagnosed with breast cancer, age 79. Daughter with history of breast cancer as well. History of Present Illness 81 yo female with h/o CAD, PAF, on Eliquis, htn, DMII, COPD, hyperlipidemia, GERD, PVD, ckd, stage 2; referred for newly diagnosed right breast cancer; patient had category 5 mammogram, with 1 cm suspicious mass at 9 o'clock position of right breast; she underwent US-guided core needle biopsy that r evealed invasive ductal carcinoma, ER/HI +; Her2 holden negative; patient denies change or pain in right breast, no skin changes or nipple discharge; no previous breast biopsies or XRT; patient has fmhxof breast cancer in her sister, dx in her late 70's, and in her daughter, dx at age 40; unsure if genetic testing was done on her daughter. former smoker, quit 3 years ago. Review of Systems PHQ Score Initial Depression Screen Score: 0 ROS - Provider Constitutional: no fever, no sweats, no weight loss. Eyes: no glasses, no blurred vision, no visual loss. ENMT: no dentures, no hoarseness, no swallowing difficulties, no hearing loss, no ear infection(s),no nose bleeds. Cardiovascular: normal blood pressure, no chest pain, regular heartbeat, no heart murmur. Respiratory: yes shortness of breath, no cough, no asthma, no wheezing. Gastrointestinal: no nausea, no vomiting, no diarrhea, no constipation, no blood in stool, no change in bowel habits, no abdominal pain, no hepatitis. Genitourinary: no kidney stones, no urine infection, no dysuria. Musculoskeletal: mild pain, mild weakness. Skin: no changing moles, no rash, no skin lumps. Neurologic: no seizures, no epilepsy, no headache. Psychiatric: no emotional or psychiatric problem. Heme/Lymph: no bleeding problems, no anemia, no blood clots, no transfusions. Allergy/Immunologic: no swollen lymph nodes/glands, no IV drug abuse. Other: Additional ROS info: Except as noted in the above Review of Systems and in the History of Present Illness, all other systems have been reviewed and are negative or noncontributory. Physical Exam Vitals & Measurements HR: 68(Peripheral) RR: 16 BP: 130/68 HT: 60 in HT: 152.4 cm WT: 84.2 kg WT: 185.24 lb BMI: 36.25 HEENT: normal conjunctiva, sclera clear, no scleral icterus, EOM intact, PERRLA. oral mucosa moist without lesions Neck: trachea midline , no mass, symmetric, no thyromegaly or nodules. no adenopathy Respiratory: lungs CTA, respirations non labored. Cardiovascular: regular rate and rhythm, no murmur, , mild pedal edema or varicosities. Chest (Breasts): symmetric, no discharge, right upper outer quadrant with 2 cm firm mass, tender, no skin or nipple changes; no palpable axillary adenopathy; left breast without dominant masses, no skin or nipple changes. Gastrointestinal: soft, non distended, no tenderness, no masses, no palpable hernias, diastasis recti no, no hepatosplenomegaly. normal bs Lymphatic: no cervical adenopathy, no axillary adenopathy, no no supraclavicular adenopathy. Musculoskeletal: abnormalgait, digits and nails without infection, nodes, cyanosis, clubbing. Skin: no rashes, no lesions, no ulcers, no subcutaneous nodules, induration. Psychiatric/Neuro: oriented to time, place, person, judgement normal, affect appropriate for age, insight intact, no focal deficits. Tests: labs reviewed, x-rays reviewed, review of old records completed, Discussed surgical options, risks, and possible complications with patient. Assessment/Plan 1. Breast cancer of upper-outer quadrant of right female breast (C50.411: 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 female breast) discussed surgical options; standard being right breast lumpectomy, needle- localized, with sentinellymph node biopsy, and need for postoperative radiation therapy after this, verses mastectomy with sentinel lymph node biopsy, and no radiation required; patient leaning towards lumpectomy; will obtain preoperative Cardiology clearance prior to scheduling surgery; will also place referral for medical and radiation Oncology. patient to call with problems/questions. Ancef 2 gms IV prior to OR SCDs Ordered: [facility] Referral [facility] [place] Ambulatory Referral 2. 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 Pt denies any further questions regarding discharge at this time. Pt given also given discharge packet with unit letter, discharge instructions/restrictions and medication handouts regarding all discharge medications and side effects. Pt denies any further issues at this time. Pt wheeled out to front discharge doors at this time. Pt left premises without any issues in private vehicle at this time. * Brody Ken RN - 06/28/2022 11:49 AM EDT Pt ambulated up to restroom - voided without complication * Emma Plunkett MD - 06/28/2022 9:08 AM EDT [facility] Attending Note Patient seen and evaluated by me today. Diflucan (oral) and nystatin called into her local pharmacy for her ongoing yeast troubles. She tells me that she fully understands the operation today. She tells me that all questions are answered to her satisfaction. She tells me that she understands the risks and downstream consequences of today's operation. Proceed to OR today as scheduled. CHANCE Garza MD * Marissa Singh RN - 06/24/2022 11:32 AM EDT Pt. instructed to continue ASA and Eliquis pre-op for OR 06-28-22 per Deborah/ Dr. Garza. documented in this encounterLA[facility] [employer] Phone: [phone]) 207-605610-18-2022 Hospital Discharge instructions* Discharge Instructions* Brody Ken RN - 06/28/2022 8:47 AM EDT Keep operative area clean and dry. Rinse area and pat dry after urinating or having a bowel movement. Apply bacitracin, proctofoam, and silvadene cream to operative area as needed. Avoid baths or anything in the vagina until cleared by your physician.No alcoholic beverages, no driving or operating machinery, no making important decisions for 24 hours. Children should maintain quiet play ( games, movies, books ) for 24 hours. You may have a normal diet but should eat lightly day of surgery. Drink plenty of fluids. Urinate within 8 hours after surgery, if unable to urinate call your doctor documented in this [facility] [employer] Phone: [phone]) [phone] History of Present illness Narrative* Brody Ken RN - 12/13/2021 4:27 PM EDT Discharge Note: All discharge instructions given at this time as well as all patient belongings returned to patient. Pt denies any further questions regarding discharge at this time. Pt given also given discharge packet with unit letter, discharge instructions/restrictions and medication handouts regarding all discharge medications and side effects. Pt denies any further issues at this time. Pt wheeled out to front discharge doors at this time. Pt left premises without any issues in private vehicle at this time. * Emma Plunkett MD - 12/13/2021 2:12 PM EDT [facility] Attending Note Patient seen and evaluated by me today. Chart, pathology, findings, operation revd once more. She tells me today that she fully understands the operation and all of the serious risks and downstream consequences. She tells me today that all questions are answered to her satisfaction today. Proceed to OR today as scheduled CV Kayla CARDONA * Byron Oshea RN - 12/10/2021 12:49 PM EDT Repeat potassium 12/08/21 3.8.pcp ok for surgery on 12/13/21 * Byron Oshea RN - 12/10/2021 12:47 PM EDT Medical clearance on chart for or 12/13/21 * Byron Oshea RN - 12/10/2021 9:18 AM EDT Updated cardiac clearance on chart for or 12/13/21 [facility] Phone: 1([phone]) [phone] Evaluation note* Diagnosis Vaginectomy w/ Cysto 12/13/21- Primary Other postprocedural status documented in this encounter [employer] Phone: [phone]) [phone] Hospital Discharge instructions* Instructions* Brody Ken RN - 12/13/2021 Images from the original note were not included. Vaginal and Vulvar Cancer: Care Instructions Overview Vaginal and vulvar cancer occur when abnormal cells grow out of control in the vagina or the vulva.The vagina, also called the canal, is the tube that goes from the uterus to the outside of the body. The vulva includes the lips of the vagina, the sensitive tissue between those lips called the clitoris, andthe opening of the vagina. Cancer of the vagina or vulva is often curable when it is found early. Treatment may include surgery to remove part or all of the vulva or vagina. It may also include radiation, which uses high-energy rays to kill cancer cells,or chemotherapy, which uses medicines. Being treated for cancer can weaken your body, and you may feel very tired. Home treatment and certain medicines can relieve some of your symptoms and helpyou feel better. Follow-up care is a rosas part of your treatment and safety. Be sure to make and go to all appointments, and call your doctor if you are having problems. It's also a good idea to know your test resultsand keep alist of the medicines you take. How can you care for yourself at home? Take your medicines exactly as prescribed. Call your doctor if you have any problems with your medicine. You may get medicine for nausea and vomiting if you have these side effects. Eat healthy food. If you do not feel like eating, try to eat food that has protein and extra calories to keep up your strength and prevent weight loss. Drink liquid meal replacements for extra calories and protein. Try to eat your main meal early. Get some physical activity every day, but do not get too tired. Keep doing the hobbies you enjoy asyour energy allows. Take steps to control your stress and workload. Learn relaxation techniques. ? Share your feelings. Stress and tension affect our emotions. By expressing your feelings to others, you may be able to understand and cope with them. ? Consider joining a support group. Talking about a problem with your spouse, a good friend, or other people with similar problems is a good way to reduce tension and stress. ? Express yourself through art. Try writing, crafts, dance, or art to relieve stress. Some dance, writing, or art groups may be available just for people who have cancer. ? Be kind to your body and mind. Getting enough sleep, eating a healthy diet, and taking time to dothings you enjoy can contribute to an overall feeling of balance in your life and can help reduce stress. ? Get help if you need it. Discuss your concerns with your doctor, counselor, or other health professional. If you are vomiting or have diarrhea: ? Drink plenty of fluids to prevent dehydration. Choose water and other clear liquids. If you have kidney, heart, or liver disease and have to limit fluids, talk with your doctor before you increase the amount of fluids you drink. ? When you are able to eat, try clear soups, mild foods, and liquids until all symptoms are gone for 12 to 48 hours. Other good choices include dry toast, crackers, cooked cereal, and gelatin dessert, such as Jell-O. If you have not already done so, prepare a list of advance directives. Advance directives are instructions to your doctor and family members about what kind of care you want if you become unable to speak or express yourself. When should you call for help? Call 911 anytime you think you may need emergency care. For example, call if: You passed out (lost consciousness). Call your doctor now or seek immediate medical care if: You have a fever. You have abnormal bleeding. You have new or worse pain. You think you have an infection. You have new symptoms, such as a cough, belly pain, vomiting, diarrhea, or a rash. You have signs of a blood clot, such as: ? Pain in your calf, back of the knee, thigh, or groin. ? Redness and swelling in your leg or groin. Watch closely for changes in your health, and be sure to contact your doctor if: You are much more tired than usual. You have swollen glands in your armpits, groin, or neck. You do not get better as expected. Current as of: May 19, 2021 Content Version: 13.2 [employer]. Care instructions adapted under license by [employer]. If you have questions about a medical condition or this instruction, always ask your healthcare professional. [employer] disclaims any warranty or liability for your use of this information. No alcoholic beverages, no driving or operating machinery, no making important decisions for 24 hours. Children should maintain quiet play ( games, movies, books ) for 24 hours. You may have a normal diet but should eat lightly day of surgery. Drink plenty of fluids. Urinate within 8 hours after surgery, if unable to urinate call your doctor documented [facility] Phone: 1(658) 621-137103-28-2022 History of Present illness Narrative* YANA Wallis - 12/06/2021 3:57 PM EDT Anesthesia Focused Assessment Has patient ever tested positive for COVID? No STOP-BANG Sleep Apnea Questionnaire SNORE loudly (heard through closed doors)? No TIRED, fatigued, sleepy during daytime? No OBSERVED stopping breathing during sleep? No High blood PRESSURE being treated? Yes BMI over 35? Yes AGE over 50? Yes NECK circumference over 16 ? Yes GENDER (male)? No Total 4 High risk 5-8 Intermediate risk 3-4 Low risk 0-2 Obstructive Sleep Apnea: denies If YES, machine used: no Type 1 DM: no T2DM: yes Coronary Artery Disease: Yes, stents x 3, Dr. Keyes ([facility]) Hypertension: yes Active smoker: Quit 2017, was 1/2 PPD for 45+ years Drinks Alcohol: no Dentition: benign Defib / AICD / Pacemaker: no Renal Failure/dialysis: no Patient was evaluated in PAT & anesthesia guidelines were applied. NPO guidelines, medication instructions and scheduled arrival time were reviewed with patient. Hx of anesthesia complications: no Family hx of anesthesia complications: no Anesthesia contacted: no Medical or cardiac clearance ordered: updated clearance will be requested for chart. She was cleared in May for OR as well. There is a note in [facility] from Dr. Garza that he has also already spoken with cardiology regarding blood thinners. YOANNA DIAZ PA-C 12/06/21 3:54 PM * Byron Oshea RN - 12/06/2021 3:[address] garza and pcp potassium 3.3,wbc 12.6 documented [facility] this [facility] Phone: [phone] Hospital Discharge instructions* Instructions* Yoanna Diaz PA - 12/03/2021 Images from the original note were not included. Preoperative Instructions: Stop eating solid foods at midnight the night prior to surgery. Stop drinking clear liquids at midnight the night prior to surgery. (Follow bowel prep instructions if instructed by your surgeon.) Arrive at the surgery center (Entrance B) by 8:20 on 12/13/2021 (or as directed by your surgeon's office). If you have been given a blood band, you must bring it with you the day of surgery. Please stop any blood thinning medications as directed by your surgeon or prescribing physician. Failure to stop certain medications may interfere with your scheduled surgery. These may include: Aspirin, Warfarin (Coumadin), Clopidogrel (Plavix), Ibuprofen (Motrin, Advil), Naproxen (Aleve), Meloxicam (Mobic), Celecoxib (Celebrex), Eliquis, Pradaxa, Xarelto, Effient, Fish Oil/omega 3, Herbal supplements. You may continue the rest of your medications through the night before surgery unless instructed otherwise. Please take only the following medication(s) the day of surgery with a small sip of water: Toprol/metoprolol, imdur/isosorbide, norvasc/amlodipine, synthroid Please use and bring inhalers the day of surgery. Please bring CPAP the day of surgery. Signature (Patient) Signature/date(Provider) REMINDERS: If you are going home the day of your procedure, you will need a friend or family member to drive you home after your procedure. Your cdl bulk driver must be 18 years of age or older and able to sign off on your discharge instructions. Taxi cabs or any form of public transportation is not acceptable. It is preferable that the friend or family member stay at the hospital throughout your procedure. If you are going home the same day as your procedure, someone must remain with you for the first24 hours after your surgery if you receive anesthesia or sedation. If you do not have someone to stay with you, your procedure may be cancelled. Please do not wear any jewelry or body piercings the day of surgery. PREPARING FOR YOUR SURGERY: Before surgery, you can play an important role in your own health. Because skin is not sterile, we need to be sure that your skin is as free of germs as possible before surgery by carefully washing before surgery. Preparing or prepping skin before surgery can reduce the risk of a surgical site infection. Do not shave the area of your body where your surgery will be performed unless you received specific permission from your physician. You will need to shower at home the night before surgery and the morning of surgery with a special soap called chlorhexidine gluconate (CHG*). *Not to be used by people allergic to Chlorhexidine Gluconate (CHG). Following these instructions will help you be sure that your skin is clean before surgery. Instructions on cleaning your skin before surgery: The night before your surgery: You will need to shower with warm water (not hot) and the CHG soap. Use a clean wash cloth and a clean towel. Have clean clothes available to put on after the shower. First wash your hair with regular shampoo. Rinse your hair and body thoroughly to remove the shampoo. Wash your face with your regular soap or water only. Thoroughly rinse your body with warm water from the neck down. Turn water off to prevent rinsing the soap off too soon. With a clean wet washcloth and half of the CHG soap in the bottle, lather your entire body from theneck down. Do not use CHG soap near your eyes or ears to avoid injury to those areas. Wash thoroughly, paying special attention to the area where your surgery will be performed. Wash your body gently for five (5) minutes. Avoid scrubbing your skin too hard. Turn the water back on and rinse your body thoroughly. Pat yourself dry with a clean, soft towel. Do not apply lotion, cream or powder. Dress with clean freshly washed clothes. The morning of surgery: Repeat shower following steps above - using remaining half of CHG soap in bottle. If you have any questions, call the Pre-Admission Testing Unit at [phone]. Day of Surgery/Procedure As a patient at [facility] you can expect quality medical and nursing care that is centered on your individual needs. Our goal is to make your surgical experience as comfortableas possible . Directions to the Surgery Center [facility] is located at [address] [place] [address]. Please pull into the Emergency parking lot and stop at the motor lodge clerk richards. We offer free motor lodge clerk service for all our surgery patients, if you choose not to have motor lodge clerk parking we have additional parking across the street.You will enter the facility following the [facility] sign. Please stop at the food service substitute desk where you will be checked in by the staff. If you have any questions please call [phone]. Transportation after your procedure. You will need a friend or family member to drive you home after your procedure. Your cdl bulk driver must be18 years of age or older and able to sign off on your discharge instructions. Taxi cabs or any formof public transportation is not acceptable. It is preferable that the friend or family member stay at the hospital throughout your procedure. Someone must remain at home with you for the first 24 hours after your surgery if you receive anesthesia or sedation. If you do not have someone to stay with you, your procedure may be cancelled. Patient Instructions If you are having any type of anesthesia you are to have nothing to eat or drink after midnight thenight before your surgery. This includes gum, mints, water or smoking or chewing tobacco. The only exception to this is a small sip of water to take with any morning dose of heart, blood pressure, orseizure medications. Bring a list of all medications you take, along with the dose of the medications and how often you take it. If more convenient bring the pharmacy bottles in a zip lock bag. Please shower the night before and the morning of surgery with an antibacterial soap. Please use the wipes given to you the night before your surgery after your shower. Unless otherwise told by your physician, please do not shave legs or any part of your body below your neck the night before or dayof your surgery. You may shave your face or neck. Hart your teeth but do not swallow water. Bring your inhaler if you are currently using one. Bring your eyeglasses and case with you. No contacts are to be worn the day of surgery. You also may bring your hearing aids. Bring your blood band if one has been given to you. Please do not close the clasp. If you are on C-PAP or Bi-PAP at home and plan on staying in the hospital overnight for your surgery please bring the machine with you. Do not wear any jewelry or body piercings day of surgery. Also, NO lotion, perfume or deodorant to be used the day of surgery. Do not bring any valuables, such as jewelry, hair or credit cards. If you are staying overnight with us, please bring a SMALL bag of personal items. We cannot accommodate large items, like suitcases. Please wear loose, comfortable clothing. If you are potentially going to have a cast or brace bringclothing that will fit over them. In case of illness If you have cold or flu like symptoms (high fever, runny nose, sore throat, cough, etc.) rash, nausea, vomiting, loose stools, and/or recent contact with someone who has a contagious disease (chicken pox, measles, etc.) Please call your doctor before coming to the hospital. If your child is having surgery please make arrangements for any other children to be cared for at home on the day of surgery. Other children are not permitted in recovery room and we want you to be able to spend time with the patient. If other arrangements are not available then we suggest that you have a second adult to stay in the waiting room. If you have any other questions regarding your procedure or the day of surgery, please call [phone], or [phone] documented in this [facility] [employer] Phone: 1(451) 154-497910-05-2021 History of Present illness Narrative* Parvin Rogel RN - 06/15/2021 10:[address] Kamla gan, pt cleared for phase II * Alla Dickerson DO - 06/15/2021 9:42 AM EDT OB Resident Progress Note Patient may be discharged home once she has met criteria in the PACU. Please perfect serve or page [employer] resident listed below with any questions, concerns, or if patient has not met PACU discharge criteria in 2-3 hours. . Please page first. Alla Dickerson DO [employer] Resident PGY3 Pager: [phone] [facility], [place] 06/15/2021, 9:42 AM documented in this [employer] Phone: 1([phone] 616-790410-04-2021 Hospital Discharge instructions* Instructions* Alla Dickerson DO - 06/14/2021 - Tylenol 1000mg every 6 hours for pain - Apply Clindamycin cream and Lidocaine ointment mixture twice a day - Use cold compresses and Pericare bottles after urination as needed - No baths, hot tubs, pools, or other bodies of water until cleared by your physician - No sexual intercourse until cleared by your physician documented in this [employer] Phone: 1(452) 137-867809-01-2021 Hospital Discharge instructions* Instructions* Na Cabezas APRN - [employer] - 05/12/2021 Pre-operative Instructions Please arrive at the surgery center by 6:00 AM on 05/18/2021 (or as directed by your surgeon's office). See Directons to Surgery Center below. FASTING NOTHING TO EAT OR DRINK AFTER MIDNIGHT the night prior to surgery (This includes gum, candy, mints,chewing tobacco, etc). MEDICATIONS 1. What to STOP: ANY BLOOD THINNING MEDICATION(S) as directed by your surgeon or prescribing physician. FAILURE TO STOP CERTAIN MEDICATIONS MAY INTERFERE WITH YOUR SCHEDULED SURGERY. According to the medication list you provided today, PLEASE STOP: aspirin, fish oil PLEASE FOLLOW INSTRUCTION FROM YOUR PRESCRIBING PHYSICIAN REGARDING ELIQUIS. 2. What to CONTINUE leading up to your surgery: Please take all your other daily medications except the medications listed above that you were instructed to hold. 3. What to TAKE MORNING OF SURGERY with SMALL SIP OF WATER: norvasc/amlodipine, imdur/isosorbide, metoprolol/lopressor, protonix, synthroid IF APPLICABLE: -If you have been given a blood band, you must bring it with you the day of surgery, unclasped. -Use routine inhalers and bring inhalers the day of surgery. -Bring C-Pap/Bi-pap with you morning of surgery if planning on staying in the hospital overnight. -Do not take diabetic medications on the day of surgery. OTHER IMPORTANT REMINDERS 1) Please REMEMBER to get Covid-19 Screening if scheduled 2) You may be required to provide a urine sample upon your arrival to the pre-op area, so please take this into consideration. 3) If NOT planning on staying in the hospital overnight : A.You will need an adult family member /friend to drive you home after your procedure. Taxi cabs orany form of public transportation ALONE is not acceptable. -Your cdl bulk driver must be 18 years of age or older and able to sign off on your discharge instructions. -It is preferable that the friend or family member stay at the hospital throughout your procedure. B. Someone must remain with you once you have arrived home for the first 24 hours after your surgery if you receive anesthesia or medication. If you do not have someone to stay with you, your procedure may be cancelled. 4) Do not wear any jewelry or body piercings day of surgery. 5) In case of illness If you have cold or flu like symptoms (high fever, runny nose, sore throat, cough, etc.) rash, nausea, vomiting, loose stools, and/or recent contact with someone who has a contagious disease (Covid-19, chicken pox, measles, etc.) PLEASE notify your surgeon as soon as possible. 05/10/21 1:49 PM Signature (Provider) Signature (Patient) Day of Surgery/Procedure As a patient at [facility] you can expect quality medical and nursing care that is centered on your individual needs. Our goal is to make your surgical experience as comfortableas possible . Directions to the Surgery Center [facility] is located at [address] [place] [address]. Please pull into the Emergency/Surgery Center parking lot and stop at the motor lodge clerk richards. We offer free motor lodge clerk service for all our surgery patients, if you choose not to have motor lodge clerk parking we have additional parking across the street. You will enter the facility under through the glass doors and proceed to registration check-in which is right inside the door. Thereafter you will be directed to the Surgery Center ON THE FIRST FLOOR. Patient Instructions Please shower the night before and the morning of surgery with an antibacterial soap. Please use the cleaning solution (bottle) given to you the night before your surgery after your shower. Unless otherwise told by your physician, please do not shave legs or any part of your body below your neck the night before or day of your surgery. You may shave your face or neck. Please wear loose, comfortable clothing. If you are potentially going to have a cast or brace bringclothing that will fit over them. Bring a list of all medications you take, along with the dose of the medications and how often you take it. If more convenient bring the pharmacy bottles in a zip lock bag. Hart your teeth but do not swallow water. Bring your eyeglasses and case with you. No contacts are to be worn the day of surgery. You also may bring your hearing aids. Do not bring any valuables, such as jewelry, hair or credit cards. If you are staying overnight with us, please bring a SMALL bag of personal items. We cannot accommodate large items, like suitcases. If your child is having surgery please make arrangements for any other children to be cared for at home on the day of surgery. Other children are not permitted in recovery room and we want you to be able to spend time with the patient. If other arrangements are not available then we suggest that you have a second adult to stay in the waiting room. If you are having any type of anesthesia you are to have nothing to eat or drink after midnight thenight before your surgery. This includes gum, mints, water or smoking or chewing tobacco. The only exception to this is a small sip of water to take with any morning dose of heart, blood pressure, orseizure medications. Bring your inhaler if you are currently using one. Bring your blood band if one has been given to you. Please do not close the clasp. If you are on C-PAP or Bi-PAP at home and plan on staying in the hospital overnight for your surgery please bring the machine with you. Do not wear any jewelry or body piercings day of surgery. Also, NO lotion, perfume or deodorant to be used the day of surgery. If you have any other questions regarding your procedure/surgery please call your surgeon's office. If you have a last minute question(s) the DAY OF your surgery, you may call [phone] documented in this [employer] Phone: 1(276) 275-734409-01-2021 History of Present illness Narrative* Mandy Baker RN - 05/12/2021 1:30 PM EDT Medical clearance obtained for OR on 05/18/2021. * Na Cabezas APRN - CNP - 05/12/2021 1:30 PM EDT Anesthesia Focused Assessment Hx of anesthesia complications: no Family hx of anesthesia complications: no Prior + Covid-19 test? no STOP-BANG Sleep Apnea Questionnaire SNORE loudly (heard through closed doors)? No TIRED, fatigued, sleepy during daytime? No OBSERVED stopping breathing during sleep? No High blood PRESSURE or being treated? Yes BMI over 35? Yes AGE over 50? Yes NECK circumference over 16 ? No GENDER (male)? No Total 3 High risk 5-8 Intermediate risk 3-4 Low risk 0-2 SANDRO No If yes, machine? DM1 No DM2 Yes Coronary Artery Disease Yes HTN Yes Defib/AICD/Pacemaker No Renal Failure No If yes, on dialysis Active smoker? No Drinks alcohol? No Illicit drugs? No Dentition? benign Past Medical History: Diagnosis Date Arthritis Asthma Bronchitis CAD (coronary artery disease) CHF (congestive heart failure) (HCC) COPD (chronic obstructive pulmonary disease) (HCC) Diabetes mellitus (HCC) Gastritis GERD (gastroesophageal reflux disease) History of stent insertion of renal artery Hx of blood clots Hyperlipidemia Hypertension IBS (irritable bowel syndrome) Pedal edema Pneumonia PVD (peripheral vascular disease) ([facility]) Thyroid disease Under care of team 05/12/2021 dr Perry [facility]-last visit apr 2021 Under care of team 05/12/2021 [facility]2020 Varicose vein of leg Patient was evaluated in [facility] & anesthesia guidelines were applied. NPO guidelines, medication instructions and scheduled arrival time were reviewed with patient. Anesthesia contacted: Yes I spoke with Dr. Rondon. Patient history and pertinent findings reviewed. Patient with history of CAD, CHF, stress test and cardiac echo (results not in Epic, from outside provider), cardiac stentx 3. Last saw wash tub machine operator in December 2020. On Eliquis and aspirin prescribed from her wash tub machine operator. Medical or cardiac clearance ordered: cardiac FERNY Andres CNP 05/12/21 2:43 PM [facility] [employer] Work Phone: evaluation + Plan noteGeneral Surgery [place] Evaluation + Plan note Future Appointments Appointment Date:11/08/2022 02:00:00 PM Scheduled Provider:Iliana GAGNON MD Location:[facility] Appointment Type:[place] [id number] General Surgery [place] evaluation + Plan note Future Appointments Appointment Date:11/22/2022 01:40:00 PM Scheduled Provider:Iliana GAGNON MD Location:[facility] Appointment Type:[place] [address] General Surgery [place] evaluation note* Diagnosis Pre-op chest exam Pre-operative respiratory examination documented in this encounter [employer] Phone: evalmsxejl note* Diagnosis S/p Partial vaginectomy with Ultrasonic Scalpel 06/15/21- 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, 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 documented in this encounter [employer] Phone: evalyrfwai note* Diagnosis Pre-op chest exam Pre-operative respiratory examination documented in this encounter [employer] Phone: evalklzwqs note* Diagnosis Vaginal dysplasia Dysplasia of vagina S/p Vaginal and Vulvar Biopsies, CO2 laser vaporization of vaginal and vulvar lesions 06/28/22 Other postprocedural status 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, 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 documented in this encounter [employer] Phone: evaluation note* Diagnosis 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, estrogen receptor positive (HCC)- Primary [facility]* Diagnosis 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 breast in female, estrogen receptor positive (HCC)- Primary [facility] [place] [facility]* Diagnosis 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, estrogen receptor positive (HCC)- Primary Claudication in peripheral vascular disease (HCC) Peripheral vascular disease, unspecified [facility] assessment information [facility] Work Phone: Evaluation noteNo InformationNort [employer] 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, estrogen receptor positive (HCC)- Primary Rash Rash and other nonspecific skin eruption Other eczema Stage 3a chronic kidney disease (HCC) [facility] [place] [facility]* Diagnosis 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, estrogen receptor positive (HCC)- Primary Stage 3a chronic kidney disease (HCC) [facility] Narrative - Reported* Type Description Date Medical History DIABETES Medical History HTN Medical History ASTHMA Medical History 3 HEART STENT AND 1 LEG Medical History HYPERLIPIDEMIA Medical History HYPOTHYROID Medical History PAD Surgical History STENT PLACEMENTS Surgical History PSEUDO ANURYSM Surgical History BLADDER SUSPENSION Surgical History HYSTERECTOMY Surgical History RLE & RT RENAL DSA'S, ANGIOPLAS TIES & STENTING 04-25-2019 [employer] Other History general Narrative - Reported* Type Description Date Medical History DIABETES Medical History HTN Medical History ASTHMA Medical History 3 HEART STENT AND 1 LEG Medical History HYPERLIPIDEMIA Medical History HYPOTHYROID Medical History PAD Surgical History STENT PLACEMENTS Surgical History PSEUDO ANURYSM Surgical History BLADDER SUSPENSION Surgical History HYSTERECTOMY Surgical History RLE & RT RENAL DSA'S, ANGIOPLAS TIES & STENTING 04-25-2019 Surgical History VAGINAL ABLASION OF CANCER CELL S [employer] Other Hospital course Narrative No data available for this section General Surgery [facility] Discharge instructions No data available for this section General Surgery [facility] Progress note No data available for this section General Surgery [facility] Reason for referral (narrative) Referred by: Iliana GAGNON MD Referred by: Iliana GAGNON MD General Surgery [facility] for referral (narrative)* Diagnostic Procedure Only (Routine) - Pending Review Specialty Diagnoses / Procedures Referred By Jacinta fernandez Referred To Contact [facility] Diagnoses 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, estrogen receptor positive (HCC) Procedures MAGNO DIAGNOSTIC BILATERAL DIAGNOSTIC MAMMOGRAPHY COMPUTER-AIDED DETCJ Winnie Guzmán PA-C [address] [place] [address] [place] [address] [facility] [address] [place] [id number] Referral ID Status Reason Start Date Expiration Date Visits Requested Visits Authorized [id number] Pending Review Auto-Generat ed Referral 3 07/19/2024 1 1 [facility] for visit Narrative* Auth/Cert Specialty Diagnoses / Procedures Referred By Jacinta fernandez Referred To Contact Diagnoses Vaginal dysplasia VAGINAL DYSPLASIA Procedures HI OFFICE/OUTPT VISIT,PROCEDURE ONLY HI COMPLETE REMOVAL OF VAGINA WALL HI CYSTOURETHROSCOPY CYSTOSCOPY, VAGINECTOMY Emma Garza MD [address] [facility] [address] [place] [address] [employer] [address] [place] [address] Referral ID Status Reason Start Date Expiration Date Visits Re quested Visits Authorized 1 1 [employer] Phone: Summary Purpose Family History No Family History Records FoundNo Family History Records FoundNo Family History Records FoundNo Family History Records FoundNo Family History Records FoundNo Family History Records FoundNo Family History Records Found Advance Directives No Advanced Directives Records FoundLatest Code Status on File Code Status Date Activated Date Inactivated Comments Full Code 06/28/2022 6:57 AM Documents on File Type Date Recorded Patient Horticulturalist Expl anation Advance Directive(s) 01/16/2017 3:59 PM Documents on File Type Date Recorded Patient Horticulturalist Expl anation Advance Directive(s) 01/16/2017 3:59 PM Latest Code Status on File Code Status Date Activated Date Inactivated Comments Full Code 06/28/2022 6:57 AM 06/28/2022 2:17 PM Advance Directive Response Recorded Date/ Time Advance Directives No March 20 2:53pm Reason for Referral Status Reason Specialty Diagnoses / Procedures Referre d By Contact Referred To Contact Open Cardiology Diagnoses Pre-op chest exam Procedures EKG 12 lead KimmieLatonia novoa, PA-C [address] [facility] [address] [place] [address] Specialty Diagnoses / Procedures Referred By Contac t Referred To Contact Cardiology Diagnoses Pre-op chest exam Procedures EKG 12 lead Kimmie, Latonia, PA-C [address] [place] [address] Referral ID Status Reason Start Date Expiration Date Visits Re quested Visits Authorized [id number] Open 11/22/2021 11/22/2022 1 1 Specialty Diagnoses / Procedures Referred By Contac t Referred To Contact Vascular Surgery Diagnoses Claudication in peripheral vascular disease (HCC) Procedures CONSULT TO VASCULAR SURGERY OFFICE/OUTPATIENT [facility] 60-74 MINUTES Wallace Stone MD [address] [place] [address] Referral ID Status Reason Start Date Expiration Date Visits Requested Visits Authorized [id number] Authorized PCP Requested Referral 11/16/2022 11/09/2023 1 1 Specialty Diagnoses / Procedures Referred By Contac t Referred To Contact Dermatology Diagnoses Rash Other eczema Procedures CONSULT TO DERMATOLOGY OFFICE/OUTPATIENT [facility] 60-74 MINUTES Wallace Stone MD [address] [place] [address] Referral ID Status Reason Start Date Expiration Date Visits Requested Visits Authorized [id number] Authorized PCP Requested Referral 02/14/2023 02/14/2024 1 1 Chief Complaint and Reason for Visit Chief Complaint Right Leg Swelling Additional Source Comments INFORMATION SOURCE (unrecogn ized section and content) DATE CREATED AUTHOR 02/05/2021 [facility] DATE CREATED AUTHOR AUTHOR'S ORGANIZ ATION 12/09/2022 [facility] DATE CREATED AUTHOR AUTHOR'S ORGANIZ ATION 01/22/2023 [facility] DATE CREATED AUTHOR AUTHOR'S ORGANIZ ATION 03/20/2023 [facility] DATE CREATED AUTHOR AUTHOR'S ORGANIZ ATION 06/22/2023 [facility] DATE CREATED AUTHOR AUTHOR'S ORGANIZ ATION 06/23/2023 [facility] DATE CREATED AUTHOR AUTHOR'S ORGANIZ ATION 07/13/2023 [facility] Reason for Visit (unrecogniz ed section and content) Status Reason Specialty Diagnoses / Procedures Re ferred By Contact Referred To Contact Diagnoses 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 Procedures HI REMOVE VAGINA WALL, PARTIAL HI COLPOSCOPY,CERVIX W/ADJ VAGINA PARTICAL VAGINECTOMY WITH ULTRASONIC SCAPEL VAGINAL COLPOSCOPY WITH MICROSCOPE Kin Abarca MD [address] [facility] [address] [address] [facility] Specialty Diagnoses / Procedures Referred By Contac t Referred To Contact Diagnoses Vaginal dysplasia VAGINAL DYSPLASIA Procedures HI OFFICE/OUTPT VISIT,PROCEDURE ONLY HI DESTRUCT,VAGINAL LESION(S),SIMPLE CO2 LASER VAPORIZATION OF LESIONS (FORT CONF# [id number] - JEREMIAS) Emma Garza MD [address] [facility] [address] [place] [address] [facility] [address] [place] [address] Referral ID Status Reason Start Date Expiration Date Visits Re quested Visits Authorized [id number] 1 1 Reason Comments Care Coordination Surgery update Reason Comments Consult Breast Cancer Reason Comments Breast Cancer Reason Comments Breast Cancer Reason Comments Referral Information Vascular Consult Reason Comments Breast Cancer 3 month follow up Reason Comments Breast Cancer 4 month follow up Ordered Prescriptions (unrec ognized section and content) Prescription Sig Dispensed Refills Start Date End Da te acetaminophen (TYLENOL) 500 MG tablet Take 2 tablets by mouth every 6 hours as needed for Pain 80 tablet 1 06/15/2021 07/15/2021 lidocaine (XYLOCAINE) 5 % ointment Apply topically as needed to the affected area. 50 g 1 06/15/2021 06/15/2021 Prescription Sig Dispensed Refills Start Date End Da te HYDROcodone-acetaminoph en (NORCO) 5-325 MG per tabletIndications:Post- operative state Take 1 tablet by mouth every 4 hours as needed for Pain for up to 7 days. Intended supply: 7 days. Take lowest dose possible to manage pain 10 tablet 0 12/13/2021 12/20/2021 acetaminophen (TYLENOL) 500 MG tablet Take 2 tablets by mouth every 6 hours as needed for Pain 120 tablet 0 12/13/2021 01/12/2022 Prescription Sig Dispensed Refills Start Date End Da te senna-docusate (PERICOLACE) 8.6-50 MG per tablet Take 1 tablet by mouth 2 times daily as needed for Constipation 60 tablet 1 06/28/2022 07/28/2022 silver sulfADIAZINE (SILVADENE) 1 % cream Apply topically daily. 25 g 1 06/28/2022 bacitracin-polymyxin b (POLYSPORIN) 500-00540 UNIT/GM ointment Apply topically 2 times daily. 15 g 1 06/28/2022 07/05/2022 pramoxine HCl (PROCTOFOAM) 1 % foam Apply to hemorrhoids and anal area for postop pain as needed 15 g 0 06/28/2022 acetaminophen (TYLENOL) 500 MG tablet Take 2 tablets by mouth every 6 hours as needed for Pain 60 tablet 0 06/28/2022 07/28/2022 silver sulfADIAZINE (SILVADENE) 1 % cream Apply topically daily. 25 g 1 06/28/2022 06/28/2022 pramoxine HCl (PROCTOFOAM) 1 % foam Apply to hemorrhoids and anal area for postop pain as needed 15 g 0 06/28/2022 06/28/2022 bacitracin-polymyxin b (POLYSPORIN) 500-96418 UNIT/GM ointment Apply topically 2 times daily. 15 g 1 06/28/2022 06/28/2022 senna-docusate (PERICOLACE) 8.6-50 MG per tablet Take 1 tablet by mouth 2 times daily as needed for Constipation 60 tablet 1 06/28/2022 06/28/2022 acetaminophen (TYLENOL) 500 MG tablet Take 2 tablets by mouth every 6 hours as needed for Pain 60 tablet 0 06/28/2022 06/28/2022 Scheduled Active and Recently Administ ered Medications (unrecognized section and content) Medication Order 06/13/2021 06/14/2021 06/15/2021 ipratropium-albuterol (DUONEB) nebulizer solution 1 ampule (COMPLETED) 1 ampule, Inhalation, ONCE, On Mon06/15/21 at 0830, For 1 dose 0838 (Given - Provid er: Sukhdev Bailey RN) Continuous Medication Order 06/13/2021 06/14/2021 06/15/2021 lactated ringers infusion IntraVENous, at 100 mL/hr, CONTINUOUS, Starting on Mon06/15/21 at 0900, Pre-op (day of surgery) 0850 (New Bag - Prov ider: Sukhdev Bailey RN) PRN Medication Order 06/13/2021 06/14/2021 06/15/2021 acetic acid 5 % solution (CANCELED) PRN, Starting on Mon06/15/21 at 0928, Intra-op 0928 (Given - Provid er: Kin Abarca MD - Comment: GIVEN TO BACK TABLE) clindamycin (CLEOCIN) 2 % vaginal cream (CANCELED) PRN, Starting on Mon06/15/21 at 0929, Intra-op 0929 (Given - Provid er: Kin Abarca MD - Comment: GIVEN TO BACK TABLE, THE REST SENT WITH PATIENT) lidocaine (XYLOCAINE) 2 % uro-jet (CANCELED) PRN, Starting on Mon06/15/21 at 0929, Intra-op 0929 (Given - Provid er: Kin Abarca MD - Comment: GIVEN TO BACK TABLE, THE REST SENT WITH PATIENT) sodium chloride 0.9 % irrigation (COMPLETED) CONTINUOUS PRN, Starting on Mon06/15/21 at 0927, Intra-op 0925 (New Bag - Prov ider: Kin Abarca MD - Comment: BACK TABLE)09 (New Bag - Provider: Kin Abarca MD - Comment: MISONIX MACHINE) Scheduled Medication Order 12/11/2021 12/12/2021 12/13/2021 sodium chloride flush 0.9 % injection 5-40 mL 5-40 mL, IntraVENous, EVERY 12 HOURS SCHEDULED (2 times per day), First dose on Mon12/13/21 at 1015, Until Discontinued, For Line Patency: Peripheral IV = 5 mL; Midline or Central Line = 10 mL/lumen. If following IV push medication, administer flush at same rate as the IV push. Flush volume is determined by type of infusion therapy being given. For non-viscous solutions use: Peripheral IV = 5 mL Midline or Central Line = 10 mL/lumen For viscous solutions (i.e. blood components, parenteral nutrition, contrast media, or after obtaining blood sample) use: Peripheral IV = 10 mL Midline or Central Line = 20 mL/lumen, PACU only 1015 (Due)2100 (Due) sodium chloride flush 0.9 % injection 5-40 mL 5-40 mL, IntraVENous, EVERY 12 HOURS SCHEDULED (2 times per day), First dose on Mon12/13/21 at 2100, Until Discontinued, For Line Patency: Peripheral IV = 5 mL; Midline or Central Line = 10 mL/lumen. If following IV push medication, administer flush at same rate as the IV push. Flush volume is determined by type of infusion therapy being given. For non-viscous solutions use: Peripheral IV = 5 mL Midline or Central Line = 10 mL/lumen For viscous solutions (i.e. blood components, parenteral nutrition, contrast media, or after obtaining blood sample) use: Peripheral IV = 10 mL Midline or Central Line = 20 mL/lumen, PACU only 2100 (Due) Continuous Medication Order 12/11/2021 12/12/2021 12/13/2021 lactated ringers infusion IntraVENous, at 100 mL/hr, CONTINUOUS, Starting on Mon12/13/21 at 1015, Pre-op (day of surgery) 1010 (New Bag - Prov ider: Sukhdev Bailey RN)1425 (Paused - Provider: FERNY Mackenzie CRNA - Comment: Switch to gravity)1426 (Restarted - Provider: FERNY Mackenzie CRNA)1519 (Anesthesia Volume Adjustment - Provider: FERNY Mackenzie CRNA) PRN Medication Order 12/11/2021 12/12/2021 12/13/2021 0.9 % sodium chloride infusion IntraVENous, at 5-250 mL/hr, PRN, if patient receiving piggyback infusions and maintenance fluids are not ordered OR KVO fluids to protect IV site / prevent frequent line interruptions/ long duration, Starting on Mon12/13/21 at 0956, For piggyback infusion, administer at same rate as piggyback for a total of 25 mL. Enter 25 mL into dose field and piggyback rate into rate field of order. If piggyback is infusing at a rate less than 100 mL/hr, enter 25 mL into dose field and 100 mL/hr into rate field of order. For KVO fluids, enter rate of 20 mL/hr or less into rate field of order., PACU only 0.9 % sodium chloride infusion IntraVENous, at 5-250 mL/hr, PRN, if patient receiving piggyback infusions and maintenance fluids are not ordered OR KVO fluids to protect IV site / prevent frequent line interruptions/ long duration, Starting on Mon12/13/21 at 1446, For piggyback infusion, administer at same rate as piggyback for a total of 25 mL. Enter 25 mL into dose field and piggyback rate into rate field of order. If piggyback is infusing at a rate less than 100 mL/hr, enter 25 mL into dose field and 100 mL/hr into rate field of order. For KVO fluids, enter rate of 20 mL/hr or less into rate field of order., PACU only diphenhydrAMINE (BENADRYL) injection 12.5 mg 12.5 mg, IntraVENous, ONCE PRN, 1 dose, Starting on Mon12/13/21 at 1446, Until Mon12/13/21 at 2359, Itching, PACU only fentaNYL (SUBLIMAZE) injection 25 mcg 25 mcg, IntraVENous, EVERY 5 MIN PRN, 2 doses, Starting on Mon12/13/21 at 0957, Until Discontinued, Pain Moderate (4-6), For Phase I. If Phase II oral narcotics have been administered in the last 60 minutes, do not administer IV narcotics unless specifically approved by provider., PACU only fentaNYL (SUBLIMAZE) injection 25 mcg 25 mcg, IntraVENous, EVERY 5 MIN PRN, 4 doses, Starting on Mon12/13/21 at 1446, Until Discontinued, Pain Moderate (4-6), Phase I - Initial therapy for moderate pain., PACU only fentaNYL (SUBLIMAZE) injection 50 mcg 50 mcg, IntraVENous, EVERY 5 MIN PRN, 2 doses, Starting on Mon12/13/21 at 0957, Until Discontinued, Pain Severe (7-10), For Phase I. If Phase II oral narcotics have been administered in the last 60 minutes, do not administer IV narcotics unless specifically approved by provider., PACU only fentaNYL (SUBLIMAZE) injection 50 mcg 50 mcg, IntraVENous, EVERY 5 MIN PRN, 4 doses, Starting on Mon12/13/21 at 1446, Until Discontinued, Pain Severe (7-10), Phase I - Initial therapy for severe pain., PACU only ondansetron (ZOFRAN) injection 4 mg 4 mg, IntraVENous, ONCE PRN, 1 dose, Starting on Mon12/13/21 at 1446, Until Mon12/13/21 at 2359, Nausea, PACU only sodium chloride flush 0.9 % injection 5-40 mL 5-40 mL, IntraVENous, PRN, Starting on Mon12/13/21 at 0956, Until Discontinued, Line Care, After every IV line use, For Line Patency: Peripheral IV = 5 mL; Midline or Central Line = 10 mL/lumen. If following IV push medication, administer flush at same rate as the IV push. Flush volume is determined by type of infusion therapy being given. For non-viscous solutions use: Peripheral IV = 5 mL Midline or Central Line = 10 mL/lumen For viscous solutions (i.e. blood components, parenteral nutrition, contrast media, or after obtaining blood sample) use: Peripheral IV = 10 mL Midline or Central Line = 20 mL/lumen, PACU only sodium chloride flush 0.9 % injection 5-40 mL 5-40 mL, IntraVENous, PRN, Starting on Mon12/13/21 at 1446, Until Discontinued, Line Care, After every IV line use, For Line Patency: Peripheral IV = 5 mL; Midline or Central Line = 10 mL/lumen. If following IV push medication, administer flush at same rate as the IV push. Flush volume is determined by type of infusion therapy being given. For non-viscous solutions use: Peripheral IV = 5 mL Midline or Central Line = 10 mL/lumen For viscous solutions (i.e. blood components, parenteral nutrition, contrast media, or after obtaining blood sample) use: Peripheral IV = 10 mL Midline or Central Line = 20 mL/lumen, PACU only Scheduled Medication Order 06/26/2022 06/27/2022 06/28/2022 sodium chloride flush 0.9 % injection 5-40 mL 5-40 mL, IntraVENous, EVERY 12 HOURS SCHEDULED (2 times per day), First dose on Mon06/28/22 at 1100, Until Discontinued, For Line Patency: Peripheral IV = 5 mL; Midline or Central Line = 10 mL/lumen. If following IV push medication, administer flush at same rate as the IV push. Flush volume is determined by type of infusion therapy being given. For non-viscous solutions use: Peripheral IV = 5 mL Midline or Central Line = 10 mL/lumen For viscous solutions (i.e. blood components, parenteral nutrition, contrast media, or after obtaining blood sample) use: Peripheral IV = 10 mL Midline or Central Line = 20 mL/lumen, PACU only 1100 (Due)2100 (Due) Continuous Medication Order 06/26/2022 06/27/2022 06/28/2022 lactated ringers infusion (CANCELED) IntraVENous, at 125 mL/hr, CONTINUOUS, Starting on Mon06/28/22 at 0915, Pre-op (day of surgery) 09 (New Bag - Prov ider: Jessica Robledo RN)09 (NoRateChange - Provider: FERNY Moses CRNA)0941 (Paused - Provider: FERNY Moses CRNA - Comment: Switch to gravity)09 (Restarted - Provider: FERNY Moses CRNA) PRN Medication Order 06/26/2022 06/27/2022 06/28/2022 0.9 % sodium chloride infusion IntraVENous, at 5-250 mL/hr, PRN, if patient receiving piggyback infusions and maintenance fluids are not ordered OR KVO fluids to protect IV site / prevent frequent line interruptions/ long duration, Starting on Mon06/28/22 at 1039, For piggyback infusion, administer at same rate as piggyback for a total of 25 mL. Enter 25 mL into dose field and piggyback rate into rate field of order. If piggyback is infusing at a rate less than 100 mL/hr, enter 25 mL into dose field and 100 mL/hr into rate field of order. For KVO fluids, enter rate of 20 mL/hr or less into rate field of order., PACU only fentaNYL (SUBLIMAZE) injection 25 mcg 25 mcg, IntraVENous, EVERY 5 MIN PRN, 2 doses, Starting on Mon06/28/22 at 1039, Until Discontinued, Pain Moderate (4-6), For Phase I. If Phase II oral narcotics have been administered in the last 60 minutes, do not administer IV narcotics unless specifically approved by provider., PACU only fentaNYL (SUBLIMAZE) injection 50 mcg 50 mcg, IntraVENous, EVERY 5 MIN PRN, 2 doses, Starting on Mon06/28/22 at 1039, Until Discontinued, Pain Severe (7-10), For Phase I. If Phase II oral narcotics have been administered in the last 60 minutes, do not administer IV narcotics unless specifically approved by provider., PACU only ondansetron (ZOFRAN) injection 4 mg 4 mg, IntraVENous, ONCE PRN, 1 dose, Starting on Mon06/28/22 at 1039, Until Mon06/29/22 at 1039, Nausea, PACU only sodium chloride 0.9 % irrigation (COMPLETED) CONTINUOUS PRN, Starting on Mon06/28/22 at 0937, Intra-op 0937 (New Bag - Prov ider: Emma Plunkett MD - Comment: BACK TABLE) sodium chloride flush 0.9 % injection 5-40 mL 5-40 mL, IntraVENous, PRN, Starting on Mon06/28/22 at 1039, Until Discontinued, Line Care, After every IV line use, For Line Patency: Peripheral IV = 5 mL; Midline or Central Line = 10 mL/lumen. If following IV push medication, administer flush at same rate as the IV push. Flush volume is determined by type of infusion therapy being given. For non-viscous solutions use: Peripheral IV = 5 mL Midline or Central Line = 10 mL/lumen For viscous solutions (i.e. blood components, parenteral nutrition, contrast media, or after obtaining blood sample) use: Peripheral IV = 10 mL Midline or Central Line = 20 mL/lumen, PACU only Care Teams (unrecognized sec tion and content) [employer] Relationship Specialty Start Date End Date Mateus Perry MD [address] [place] [address] PCP - General Family Medicine 03/04/21 [employer] Administrator Relationship Specialty Start Date End Date Mateus Perry MD [address] [place] [address] PCP - General Family Medicine 03/04/21 [employer] Administrator Relationship Specialty Start Date End Date Mateus Perry MD [address] [place] [address] PCP - General Family Medicine 03/04/21 [employer] Administrator Relationship Specialty Start Date End Date Mateus Perry MD [address] [place] [address] PCP - General Family Medicine 03/04/21 [employer] Administrator Relationship Specialty Start Date End Date Mateus Perry MD PCP - General Family Medicine 01/05/17 [employer] Administrator Relationship Specialty Start Date End Date Mateus Perry MD PCP - General Family Medicine 01/05/17 [employer] Administrator Relationship Specialty Start Date End Date Mateus Perry MD PCP - General Family Medicine 01/05/17 [employer] Administrator Relationship Specialty Start Date End Date Mateus Perry MD PCP - General Family Medicine 01/05/17 [employer] Administrator Relationship Specialty Start Date End Date Mateus Perry MD PCP - General Family Medicine 01/05/17 [employer] Administrator Relationship Specialty Start Date End Date Mateus Perry MD PCP - General Family Medicine 01/05/17 [employer] Administrator Relationship Specialty Start Date End Date Mateus Perry MD [address] [place] [address] PCP - General Family Medicine 03/04/21 Team Status: Active Member Role Status Dates Mateus Perry MD Primary Care Provider Active Team Status: Inactive Member Role Status Dates Mateus Perry MD Primary Care Provider Active Christiano Gonzales MD Attending Provider Active [employer] Relationship Specialty Start Date End Date Mateus Perry MD PCP - General Family Medicine 01/05/17 [employer] Administrator Relationship Specialty Start Date End Date Mateus Perry MD PCP - General Family Medicine 01/05/17 Source Comments (unrecognize d section and content) In the event this informatio n is protected by the Federal Confidentiality of Alcohol and Drug Abuse Patient Records regulations: The Federal rules restrict any use of the information to criminally investigate or prosecute any alcohol or drug abuse patient.TrihealthIn the event this information is protected by the Federal Confidentiality of Alcohol and Drug Abuse Patient Records regulations: The Federal rules restrict any use of the information to criminally investigate or prosecute any alcohol or drug abuse patient.TrihealthIn the event this information is protected by the Federal Confidentiality of Alcohol and Drug Abuse Patient Records regulations: The Federal rules restrict any use of the information to criminally investigate or prosecute any alcohol or drug abuse patient.TrihealthIn the event this information is protected by the Federal Confidentiality of Alcohol and Drug Abuse Patient Records regulations: The Federal rules restrict any use of the information to criminally investigate or prosecute any alcohol or drug abuse patient.TrihealthIn the event this information is protected by the Federal Confidentiality of Alcohol and Drug Abuse Patient Records regulations: The Federal rules restrict any use of the information to criminally investigate or prosecute any alcohol or drug abuse patient.TrihealthIn the event this information is protected by the Federal Confidentiality of Alcohol and Drug Abuse Patient Records regulations: The Federal rules restrict any use of the information to criminally investigate or prosecute any alcohol or drug abuse patient.TrihealthIn the event this information is protected by the Federal Confidentiality of Alcohol and Drug Abuse Patient Records regulations: The Federal rules restrict any use of the information to criminally investigate or prosecute any alcohol or drug abuse patient.TrihealthIn the event this information is protected by the Federal Confidentiality of Alcohol and Drug Abuse Patient Records regulations: The Federal rules restrict any use of the information to criminally investigate or prosecute any alcohol or drug abuse patient.[facility] Goals (unrecognized section and content) Goals may be documented in a n alternate section FOR RECORDS PERTAINING TO PATIENTS WHO ARE OR HAVE BEEN ENROLLED IN A CHEMICAL DEPENDENCY/SUBSTANCEABUSE PROGRAM, SOME INFORMATION MAY BE OMITTED. This clinical summary was aggregated from multiple sources. Caution should be exercised in using it in the provision of clinical care. This summary normalizes information from multiple sources, and as a consequence, information in this document may materially change the coding, format and clinical context of patient data. In addition, data may be omitted in some cases. CLINICAL DECISIONS SHOULD BE BASED ON THE PRIMARY CLINICAL RECORDS. [facility] [employer] [facility]. provides no warranty or guarantee of the accuracy or completeness of information in this document.
[2023-10-14] MEDS: METHYLPREDNISOLONE SOD SUCC PF 125 MG/2 ML VIAL IVP (19:48)
[2023-10-14] MEDS: ONDANSETRON PF 4 MG/2 ML VIAL IV (19:49)
[2023-10-14] MEDS: FUROSEMIDE 40 MG/4 ML VIAL IVP (19:49)
[2023-10-14 19:50] LABS: Adenovirus NOT DETECTED (NOT DETECTE); Bordetella parapertussis NOT DETECTED (NOT DETECTE); Coronavirus 229E NOT DETECTED (NOT DETECTE); Coronavirus HKU1 NOT DETECTED (NOT DETECTE); Coronavirus NL63 NOT DETECTED (NOT DETECTE); Coronavirus OC43 NOT DETECTED (NOT DETECTE); Human Metapneumovirus NOT DETECTED (NOT DETECTE); Human Rhinovirus/Enterovirus NOT DETECTED (NOT DETECTE); Influenza A NOT DETECTED (NOT DETECTE); Influenza B NOT DETECTED (NOT DETECTE); Mycoplasma pneumoniae NOT DETECTED (NOT DETECTE); Parainfluenza Virus 1 NOT DETECTED (NOT DETECTE); Parainfluenza Virus 2 NOT DETECTED (NOT DETECTE); Parainfluenza Virus 3 NOT DETECTED (NOT DETECTE); Parainfluenza Virus 4 NOT DETECTED (NOT DETECTE); Respiratory Syncytial Virus NOT DETECTED (NOT DETECTE); SARS-CoV-2 NOT DETECTED (NOT DETECTE)
[2023-10-14] MEDS: 0.9 % SODIUM CHLORIDE 1,000 ML 250 ML IV (19:50)
[2023-10-14 19:52] LABS: Basophils Percent Auto 0.3 % (0.2-2.0); Eosinophils Percent Auto 0.2 % (0.9-7.0); Hematocrit 33.6 % (36.0-48.0); Hemoglobin 10.7 g/dL (12.0-16.0); Immature Granulocytes Abs Auto 0.17 10^3/uL (0.00-0.03); Immature Granulocytes Pct Auto 1.3 % (0.0-0.5); Lymphocytes Absolute Auto 2.5 10^3/uL (1.2-3.8); Lymphocytes Percent Auto 18.8 % (20.5-60.0); Mean Corpuscular HGB Conc 31.8 g/dL (29.9-35.2); Mean Corpuscular Hemoglobin 30.7 pg (26.7-34.0); Mean Corpuscular Volume 96.6 fL (81.0-99.0); Mean Platelet Volume 9.6 fL (9.5-13.5); Monocytes Absolute Auto 1.5 10^3/uL (0.3-0.8); Monocytes Percent Auto 11.1 % (1.7-12.0); Neutrophils Absolute Auto 8.9 10^3/uL (1.4-6.5); Neutrophils Percent Auto 68.3 % (43.0-75.0); Platelet Count 279 10^3/uL (150-450); Red Blood Count 3.48 10^6/uL (4.20-5.40); Red Cell Distribution Width 16.7 % (11.0-15.0)
[2023-10-14 20:13] LABS: Alanine Aminotransferase 21 U/L (14-59); Albumin Globulin Ratio 0.6; Albumin Level 2.8 g/dL (3.4-5.0); Alkaline Phosphatase 99 U/L (46-116); Anion Gap 11.4; Aspartate Amino Transferase 15 U/L (15-37); BUN Creatinine Ratio 20.5; Bilirubin Total 0.3 mg/dL (0.2-1.0); Calcium 9.4 mg/dL (8.5-10.1); Carbon Dioxide 32.6 mmol/L (21.0-32.0); Chloride 98 mmol/L (98-107); Estimated GFR (African America 42 (>=60); Estimated GFR (Non-African Ame 34 (>=60); Globulin 4.5 g/dL; Glucose 134 mg/dL (74-106); Sodium 137 mmol/L (136-145); Total Protein 7.3 g/dL (6.4-8.2)
[2023-10-14 20:41] LABS: PROCALCITONIN <0.05 ng/mL (0.00-0.50)
[2023-10-14 21:05] LABS: Lactate/Lactic Acid 1.9 mmol/L (0.4-2.0)
[2023-10-14 21:11] LABS: INR 1.09; Partial Thromboplastin Time 37.4 sec (22.3-36.2); Prothrombin Time 11.5 sec (9.0-11.6)
[2023-10-14 21:35] LABS: Troponin I High Sensitivity 9.8 pg/mL (4.0-51.3)
--- OUTSIDE RECORDS SUMMARY | 2023-10-14 23:05 | XMS_ITS | CCD ---
Author Name Unknown Address [address] [place] [address] Organization [facility] Care Team Providers Care Back Maker Name Role Phone Mateus Perry MD Primary Care Provider Mateus Perry Primary Care Physician Mateus Perry MD Primary Care Provider [phone] Mateus Perry MD Primary Care Provider MD Mateus Perry Primary Care Provider [phone] MD Christiano Gonzales Attending Provider Christiano Gonzales Unavailable [phone] Karenmoose Millie Unavailable Mateus Perry Primary Care [...] Unavailable HOY ., DR IGNACIO Consulting Unavailable HOUSTON, DR JUDSON Plunkett Consulting Unavailable MISC, DR [...] HOY ., DR IGNACIO Primary Care Unavailable HOUSTON, DR JUDSON Plunkett Consulting Unavailable NILL ., [...] Unavailable HOY ., DR IGNACIO Consulting Unavailable HOUSTON, DR JUDSON Plunkett Consulting Unavailable HOY ., [...] 3 Other (See Comments), Intolerance, GI Upset [facility] (20 sources) Ciprofloxacin; 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: [ciprofloxacin] Drug Allergy 8 Hives, Urticaria (disorder), Other: See Comments [facility] (20 sources) oxyCODONE; 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: [oxycodone] Drug Allergy 9 Rash, Itching (finding) [facility] (16 sources) cefdinir; 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: [cefdinir] Drug Allergy 3 Vomiting (disorder), Other: See Comments, Vomiting, Other (See Comments) [facility] [place] (7 sources) traMADol; 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: [TRAMADOL] Drug Allergy 3 Mental Status Change, Other (See Comments) [facility] (1 source) Cefuroxime Drug Allergy 2 [facility] [employer] [facility] Work Phone: (2 sources) Acetaminophen; 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: [acetaminophen] Drug Allergy 9 Rash [facility] (1 source) Ciprofloxacin Drug Allergy 9 [facility] (1 source) oxyCODONE Drug Allergy 9 [facility] (1 source) traMADol Drug Allergy 3 [facility] (2 sources) Acetaminophen / oxyCODONE Drug Allergy 3 [facility] (1 source) Cefuroxime Drug Allergy 2 [facility] (2 sources) Ciprofloxacin Drug Allergy [facility] Medications Current Medications Medication Drug Class(es) [...] Polymyxin-class Antibacterial Start: End: bacitracin-polymyxin b (POLYSPORIN) 500-21497 UNIT/GM ointment Apply topically 2 times daily. [...] take 1 capsule by mouth twice daily [place] 3 1000 MG CAPS Take 1,000 mg by mouth 2 times daily 0 Active End: 05-12-2021 take 1 capsule by mouth once daily [place]-3 Fatty Acids (FISH OIL OMEGA-3) 1000 MG CAPS Take 1,000 mg by mouth daily 0 05/12/2021 Discontinued docusate sodium 50 mg / sennosides, snf 8.6 mg oral tablet (2 sources) Start: [...] Start: 09-02-2022 take 2 capsules by m [facility] once daily Fish Oil 1000 mg oral [...] Status: Ordered take 2 tablets by mo [facility] twice daily furosemide (LASIX) 20 mg tablet [...] Start: 09-02-2022 take 2 tablets by mo [facility] once daily Cytomel 5 mcg Tab 10 [...] Polyene Antifungal Start: 06-28-2022 nystatin (M YCOSTATIN) 021043 UNIT/GM powder Apply 3 times daily. 60 g 10 06/28/2022 Active nystatin (MYCOST ATIN) 698271 UNIT/GM powder Apply topically 2 times daily as needed 0 Active Hkrdp-6y-Mgb-Epa-Fish Oil ([place]-3 Fish Oil) 300-1,000 mg Capsule (1 source) Start: 04-25-2019 Jwldq-3l-Pag-Epa-Fish Oil ([place]-3 Fish Oil) 300-1,000 mg Capsule Active 2 [...] on above: Take 2 tablets by mo [facility] every 6 hours as needed for Pain. [...] Take 15 mg by mouth once daily. Jlmbz-9-DLH-EPA- Fish Oil 1,000 mg (120 mg-180 mg) cap (8 sources) take 1 capsule by mouth twice daily Zkqbt-3-EYK-EPA- Fish Oil 1,000 mg (120 mg-180 mg) [...] Comment on above: TAKE 1 TABLET BY ZECHARIAH TH THREE TIMES A DAY DO NOT [...] sources) Long-term current use of anticoagulant; 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: [[facility] (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] Onset: 09-09-2022 Episodic Other aftercare (1 source) [facility] (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; 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: [[facility] CURRNT USE ANTICOAGULANTS] Onset: 11-03-2022 Episodic Other aftercare (1 source) [facility] (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 oral hypoglycemic drugs; 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: [ALGOLOGIST USE ORAL HYPOGLYCEMIC DX] Onset: 11-03-2022 Episodic Other aftercare (1 source) 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 0TIFF Normal [facility] CBC W Auto Differential pane l (Bld)on 06-20-2023 Basophils (Bld) [#/Vol] 0.03 10*3/uL Normal <0.11 [facility] Comment on above: Order Comment: Speci men Type: BLOOD SPECIMENOrdering Facility: [facility] Address: [address] [place] [address] Performed By: #### 5 7021-8 ####[facility] LABCLIA [id number] [place] [address] Basophils/100 WBC (Bld) 0.3 % Normal [facility] Comment on above: Order Comment: Speci men Type: BLOOD SPECIMENOrdering Facility: [facility] Address: [address] [place] [address] Performed By: #### 5 7021-8 ####[facility] LABCLIA [id number] [place] [address] Differential cell count method Nom (Bld) Auto Normal [facility] Comment on above: Order Comment: Speci men Type: BLOOD SPECIMENOrdering Facility: [facility] Address: [address] [place] [address] Performed By: #### 5 7021-8 ####[facility] LABCLIA [id number] [place] [address] Eosinophils (Bld) [#/Vol] 10*3/uL Normal <0.46 [facility] Comment on above: Order Comment: Speci men Type: BLOOD SPECIMENOrdering Facility: [facility] Address: [address] [place] [address] Performed By: #### 5 7021-8 ####[facility] LABIA [id number] [place] [address] Eosinophils/100 WBC (Bld) 0.2 % Normal [facility] Comment on above: Order Comment: Speci men Type: BLOOD SPECIMENOrdering Facility: [facility] Address: [address] [place] [address] Performed By: #### 5 7021-8 ####[facility] LABCLIA [id number] [place] [address] Erythrocyte distribution width (RBC) [Ratio] 14.4 % Normal 11.5-15.0 [facility] Comment on above: Order Comment: Speci men Type: BLOOD SPECIMENOrdering Facility: [facility] Address: [address] [place] [address] Performed By: #### 5 7021-8 ####[facility] LABCLIA [id number] [place] [address] Hematocrit (Bld) [Volume fraction] 34.9 % Low 36.0-46.0 [facility] Comment on above: Order Comment: Speci men Type: BLOOD SPECIMENOrdering Facility: [facility] Address: [address] [place] [address] Performed By: #### 5 7021-8 ####[facility] LABCLIA [id number] [place] [address] Hemoglobin (Bld) [Mass/Vol] 10.9 g/dL Low 11.5-15.5 [facility] Comment on above: Order Comment: Speci men Type: BLOOD SPECIMENOrdering Facility: [facility] Address: [address] [place] [address] Performed By: #### 5 7021-8 ####[facility] LABCLIA [id number] [place] [address] Immature granulocytes (Bld) [#/Vol] 0.11 10*3/uL High <0.10 [facility] Comment on above: Order Comment: Speci men Type: BLOOD SPECIMENOrdering Facility: [facility] Address: [address] [place] [address] Performed By: #### 5 7021-8 ####[facility] LABCLIA [id number] [place] [address] Immature granulocytes/100 WBC (Bld) 1.1 % Normal [facility] Comment on above: Order Comment: Speci men Type: BLOOD SPECIMENOrdering Facility: [facility] Address: [address] [place] [address] Performed By: #### 5 7021-8 ####[facility] LABCLIA [id number] [place] [address] Lymphocytes (Bld) [#/Vol] 1.97 10*3/uL Normal 1.00-4.00 [facility] Comment on above: Order Comment: Speci men Type: BLOOD SPECIMENOrdering Facility: [facility] Address: [address] [place] [address] Performed By: #### 5 7021-8 ####[facility] LABCLIA [id number] [place] [address] Lymphocytes/100 WBC (Bld) 19.3 % Normal [facility] Comment on above: Order Comment: Speci men Type: BLOOD SPECIMENOrdering Facility: [facility] Address: [address] [place] [address] Performed By: #### 5 7021-8 ####[facility] LABCLIA [id number] [place] [address] MCH (RBC) [Entitic mass] 29.9 pg Normal 26.0-34.0 [facility] Comment on above: Order Comment: Speci men Type: BLOOD SPECIMENOrdering Facility: [facility] Address: [address] [place] [address] Performed By: #### 5 7021-8 ####[facility] LABCLIA [id number] [place] [address] MCHC (RBC) [Mass/Vol] 31.2 g/dL Normal 30.5-36.0 [facility] Comment on above: Order Comment: Speci men Type: BLOOD SPECIMENOrdering Facility: [facility] Address: [address] [place] [address] Performed By: #### 5 7021-8 ####[facility] LABCLIA [id number] [place] [address] MCV (RBC) [Entitic vol] 95.6 fL Normal 80.0-100.0 [facility] Comment on above: Order Comment: Speci men Type: BLOOD SPECIMENOrdering Facility: [facility] Address: [address] [place] [address] Performed By: #### 5 7021-8 ####[facility] LABCLIA [id number] [place] [address] Monocytes (Bld) [#/Vol] 0.49 10*3/uL Normal <0.87 [facility] Comment on above: Order Comment: Speci men Type: BLOOD SPECIMENOrdering Facility: [facility] Address: [address] [place] [address] Performed By: #### 5 7021-8 ####[facility] LABCLIA [id number] [place] [address] Monocytes/100 WBC (Bld) 4.8 % Normal [facility] Comment on above: Order Comment: Speci men Type: BLOOD SPECIMENOrdering Facility: [facility] Address: [address] [place] [address] Performed By: #### 5 7021-8 ####[facility] LABCLIA [id number] [place] [address] Neutrophils (Bld) [#/Vol] 7.59 10*3/uL High 1.45-7.50 [facility] Comment on above: Order Comment: Speci men Type: BLOOD SPECIMENOrdering Facility: [facility] Address: [address] [place] [address] Performed By: #### 5 7021-8 ####[facility] LABCLIA [id number] [place] [address] Neutrophils/100 WBC (Bld) 74.3 % Normal [facility] Comment on above: Order Comment: Speci men Type: BLOOD SPECIMENOrdering Facility: [facility] Address: [address] [place] [address] Performed By: #### 5 7021-8 ####[facility] LABCLIA [id number] [place] [address] Nucleated RBC (Bld) [#/Vol] 10*3/uL Normal <0.01 [facility] Comment on above: Order Comment: Speci men Type: BLOOD SPECIMENOrdering Facility: [facility] Address: [address] [place] [address] Performed By: #### 5 7021-8 ####[facility] LABCLIA [id number] [place] [address] Nucleated RBC/100 WBC (Bld) [Ratio] 0.0 /100 WBC Normal [facility] Comment on above: Order Comment: Speci men Type: BLOOD SPECIMENOrdering Facility: [facility] Address: [address] [place] [address] Performed By: #### 5 7021-8 ####[facility] LABCLIA [id number] [place] [address] Platelet mean volume (Bld) [Entitic vol] 9.3 fL Normal 9.0-12.7 [facility] Comment on above: Order Comment: Speci men Type: BLOOD SPECIMENOrdering Facility: [facility] Address: [address] [place] [address] Performed By: #### 5 7021-8 ####[facility] LABCLIA [id number] [place] [address] Platelets (Bld) [#/Vol] 275 10*3/uL Normal 150-400 [facility] Comment on above: Order Comment: Speci men Type: BLOOD SPECIMENOrdering Facility: [facility] Address: [address] [place] [address] Performed By: #### 5 7021-8 ####[facility] LABCLIA [id number] [place] [address] RBC (Bld) [#/Vol] 3.65 10*6/uL Low 3.90-5.20 [facility] Comment on above: Order Comment: Speci men Type: BLOOD SPECIMENOrdering Facility: [facility] Address: [place] [address] Performed By: #### 5 7021-8 ####[facility] LABCLIA [id number] [place] [address] WBC (Bld) [#/Vol] 10.21 10*3/uL Normal 3.70-11.00 [facility] Comment on above: Order Comment: Speci men Type: BLOOD SPECIMENOrdering Facility: [facility] Address: [address] [place] [id number] Performed By: #### 5 7021-8 ####[facility] LABCLIA [id number] [place] [address] CNOVSPon 06-20-2023 CNOVSP Visit (SP) Office (HEMASA) MCLEODHARMAN WOLFE ([id number]) 1940 F Date Time Provider Department 06/20/23 2:30 PM WINNIE GUZMÁN HEMASA During your visit today, we recorded the following information about you: Temperature Pulse Respiration Blood pressure 97.4 degrees 72/minute 16/minute 138/55 Weight Height 84.6 kg 1.549 m Winnie Guzmán PA-C 06/20/2023 3:58 PM Signed PAT[facility]: [id number] ATTENDING PHYSICIAN: Wallace Stone MD DATE OF [...] Negative LVI, 2 SNL negative, ER and NM >95% positive, Her2 IHC 1+ Treatment History: [...] 06/20/2023 1.77 (more content not included)... Normal [facility] Comprehensive metabolic 2000 panelon 06-20-2023 Albumin [Mass/Vol] 4.0 g/dL Normal 3.9-4.9 [facility] Comment on above: Order Comment: Speci men Type: BLOOD SPECIMENOrdering Facility: [facility] Address: [address] [place] [address] Performed By: #### 2 4323-8 ####[facility] LABCLIA [id number] [place] [address] ALP [Catalytic activity/Vol] 72 U/L Normal 34-123 [facility] Comment on above: Order Comment: Speci men Type: BLOOD SPECIMENOrdering Facility: [facility] Address: [address] [place] [address] Performed By: #### 2 4323-8 ####[facility] LABCLIA [id number] [place] [address] ALT [Catalytic activity/Vol] 17 U/L Normal 7-38 [facility] Comment on above: Order Comment: Speci men Type: BLOOD SPECIMENOrdering Facility: [facility] Address: [address] [place] [address] Performed By: #### 2 4323-8 ####[facility] LABCLIA [id number] [place] [address] Anion gap [Moles/Vol] 9 mmol/L Normal 9-18 [facility] Comment on above: Order Comment: Speci men Type: BLOOD SPECIMENOrdering Facility: [facility] Address: [address] [place] [address] Performed By: #### 2 4323-8 ####[facility] LABCLIA [id number] [place] [address] AST [Catalytic activity/Vol] 11 U/L Low 13-35 [facility] Comment on above: Order Comment: Speci men Type: BLOOD SPECIMENOrdering Facility: [facility] Address: [address] [place] [address] Performed By: #### 2 4323-8 ####[facility] LABCLIA [id number] [place] [address] Bilirubin [Mass/Vol] 0.2 mg/dL Normal 0.2-1.3 [facility] Comment on above: Order Comment: Speci men Type: BLOOD SPECIMENOrdering Facility: [facility] Address: [address] [place], [place] [address] Performed By: #### 2 4323-8 ####[facility] LABCLIA [id number] [place] [address] Calcium [Mass/Vol] 10.1 mg/dL Normal 8.5-10.2 [facility] Comment on above: Order Comment: Speci men Type: BLOOD SPECIMENOrdering Facility: [facility] Address: [address] [place] [address] Performed By: #### 2 4323-8 ####[facility] LABCLIA [id number] [place] [address] Chloride [Moles/Vol] 103 mmol/L Normal 97-105 [facility] Comment on above: Order Comment: Speci men Type: BLOOD SPECIMENOrdering Facility: [facility] Address: [address] [place] [address] Performed By: #### 2 4323-8 ####[facility] LABCLIA [id number] [place] [address] CO2 [Moles/Vol] 30 mmol/L Normal 22-30 [facility] Comment on above: Order Comment: Speci men Type: BLOOD SPECIMENOrdering Facility: [facility] Address: [address] [place] [address] Performed By: #### 2 4323-8 ####[facility] LABCLIA [id number] [place] [address] Creatinine [Mass/Vol] 1.77 mg/dL High 0.58-0.96 [facility] Comment on above: Order Comment: Speci men Type: BLOOD SPECIMENOrdering Facility: [facility] Address: [address] [place] [address] Performed By: #### 2 4323-8 ####[facility] LABCLIA [id number] [place] [address] Creatinine and Glomerular filtration rate.predicted panel (S/P/Bld) 29 mL/min/1.73m??? Low >=60 [facility] Comment on above: Order Comment: Dimple de santiago Type: BLOOD SPECIMENOrdering Facility: [facility] Address: [address] [place] [address] Result Comment: Ramila mated Glomerular Filtration Rate [...] actual GFR. Performed By: #### 2 4323-8 ####[facility] LABCLIA [id number] [place] [address] Glucose [Mass/Vol] 273 mg/dL High 74-99 [facility] Comment on above: Order Comment: Dimple de santiago Type: BLOOD SPECIMENOrdering Facility: [facility] Address: [place] [address] Result Comment: The [place] Diabetes Association (ADA) provides guidance for cutoff [...] Standards of Medical Care in Diabetes 2016, [place] Diabetes Association. Diabetes Care. 2016.39(Suppl 1). Performed By: #### 2 4323-8 ####[facility] LABCLIA [id number] [place] [address] Potassium [Moles/Vol] 5.1 mmol/L Normal 3.7-5.1 [facility] Comment on above: Order Comment: Dimple de santiago Type: BLOOD SPECIMENOrdering Facility: [facility] Address: [place] [address] Performed By: #### 2 4323-8 ####[facility] LABCLIA [id number] [place] [address] Protein [Mass/Vol] 6.4 g/dL Normal 6.3-8.0 [facility] Comment on above: Order Comment: Speci men Type: BLOOD SPECIMENOrdering Facility: [facility] Address: [address] [place] [address] Performed By: #### 2 4323-8 ####[facility] LABCLIA [id number] [place] [address] Sodium [Moles/Vol] 142 mmol/L Normal 136-144 [facility] Comment on above: Order Comment: Speci men Type: BLOOD SPECIMENOrdering Facility: [facility] Address: [address] [place] [address] Performed By: #### 2 4323-8 ####[facility] LABCLIA [id number] [place] [address] Urea nitrogen [Mass/Vol] 40 mg/dL High 7-21 [facility] Comment on above: Order Comment: Speci men Type: BLOOD SPECIMENOrdering Facility: [facility] Address: [address] [place] [address] Performed By: #### 2 4323-8 ####[facility] LABCLIA [id number] [place] [address] Vaginitis DNA Probeon 2022 Manjula Negative Normal NEG [facility] Comment on above: Result Comment: for Manjula sp. Method of testing is a DNA probe intended for detection and identification of Manjula species, Gardnerella vaginalis, and Trichomonas vaginalis nucleic acid in vaginal fluid specimens from patients with symptoms of vaginitis/vaginosis. Performed By: #### V AGP #### [address] [id number] Independent Film Maker: Fidel Hylton MD Gardnerella Negative Normal NEG [facility] Comment on above: Result Comment: for Gardnerella vaginalis Performed By: #### V AGP #### [facility] [employer] [facility] [place], [place] [id number] Independent Film Maker: Fidel Hylton MD Trichomonas Negative Normal NEG [facility] Comment on above: Result Comment: for Trichomonas Vaginalis Performed By: #### V AGP #### [facility] [employer] [address] [place] [address] [id number] Independent Film Maker: Fidel Hylton MD Source .VAGINAL SWAB Normal [facility] Comment on above: Performed By: #### V AGP #### [address] [phone] Independent Film Maker: Fidel Hylton MD Office Visiton 03-20-2023 Follow-up visit [id number] Harman Mcleod 1940 F Date Provider Department Center 03/20/2023 JOSE MARIA GARCIA [facility] Family History Problem Relation Age of Onset Stroke Mother Coronary artery disease Father Heart attack Father Family Status - Relation Status Age at Mother Father Level of Service:40806 NM OFFICE/OUTPATIENT ESTABLISHED MOD MDM 30-39 MIN Reason for Visit and Comments: Coronary Artery Disease [187] Atrial Fibrillation [80] Congestive Heart Failure [127] Hypertension [569311] Normal [facility] OPERATIVE REPORTon OPERATIVE REPORT [address] [address] OPERATIVE REPORT PATIENT NAME: HARMAN MCLEOD : 1940 MED REC NO: [id number] ROOM: ACCOUNT NO: [id number] ADMIT DATE: 03/06/2023 PROVIDER: Emma Garza MD DATE OF PROCEDURE: 03/06/2023 PREOPERATIVE DIAGNOSIS: Recurrent vaginal dysplasia. POSTOPERATIVE DIAGNOSIS: Recurrent vaginal dysplasia. OPERATION PERFORMED: Examination under anesthesia, carbon dioxide laser vaporization of vaginal dysplasia. COMPLICATIONS: None. BLOOD LOSS: Minimal. SURGEON: Emma Garza MD DOG OR HORSE RACING OFFICIAL: Mauri (resident). DISPOSITION: The patient to recovery room stable. SPECIMENS: No specimen sent to Pathology. OPERATIVE FINDINGS: The patient had a small 1-2 cm area of nxjtemgs-bl-gwhnmj dysplasia along the anterior vagina from 12 [...] entire procedure. EMMA GARZA MD [id number]/[email or web address] Doc#: [id number] CC: Normal [facility] Consultation Noteon 02-20-20 Consultation Note [id number] 0CD:127 Normal [facility] CBC W Auto Differential pane l (Bld)on 02-14-2023 Basophils (Bld) [#/Vol] 0.04 10*3/uL Normal <0.11 [facility] Comment on above: Order Comment: Speci men Type: BLOOD SPECIMENOrdering Facility: [facility] Address: [address] [place] [place] [address] Performed By: #### 5 7021-8 ####[facility] LABCLIA [id number] [place] [address] Basophils/100 WBC (Bld) 0.4 % Normal [facility] Comment on above: Order Comment: Speci men Type: BLOOD SPECIMENOrdering Facility: [facility] Address: [address] [place] [address] Performed By: #### 5 7021-8 ####[facility] LABCLIA [id number] [place] [address] Differential cell count method Nom (Bld) Auto Normal [facility] Comment on above: Order Comment: Speci men Type: BLOOD SPECIMENOrdering Facility: [facility] Address: [address] [place] [address] Performed By: #### 5 7021-8 ####[facility] LABCLIA [id number] [place] [address] Eosinophils (Bld) [#/Vol] 0.20 10*3/uL Normal <0.46 [facility] Comment on above: Order Comment: Speci men Type: BLOOD SPECIMENOrdering Facility: [facility] Address: [address] [place] [address] Performed By: #### 5 7021-8 ####[facility] LABCLIA [id number] [place] [address] Eosinophils/100 WBC (Bld) 1.9 % Normal [facility] [facility] Comment on above: Order Comment: Speci men Type: BLOOD SPECIMENOrdering Facility: [facility] Address: [address] [place] [address] Performed By: #### 5 7021-8 ####[facility] LABCLIA [id number] [place] [address] Erythrocyte distribution width (RBC) [Ratio] 14.1 % Normal 11.5-15.0 [facility] Comment on above: Order Comment: Speci men Type: BLOOD SPECIMENOrdering Facility: [facility] Address: [address] [place] [address] Performed By: #### 5 7021-8 ####[facility] LABCLIA [id number] [place] [address] Hematocrit (Bld) [Volume fraction] 38.4 % Normal 36.0-46.0 [facility] Comment on above: Order Comment: Speci men Type: BLOOD SPECIMENOrdering Facility: [facility] Address: [address] [place] [address] Performed By: #### 5 7021-8 ####[facility] LABCLIA [id number] [place] [address] Hemoglobin (Bld) [Mass/Vol] 12.2 g/dL Normal 11.5-15.5 [facility] Comment on above: Order Comment: Speci men Type: BLOOD SPECIMENOrdering Facility: [facility] Address: [address] [place] [address] Performed By: #### 5 7021-8 ####[facility] LABCLIA [id number] [place] [address] Immature granulocytes (Bld) [#/Vol] 0.06 10*3/uL Normal <0.10 [facility] Comment on above: Order Comment: Speci men Type: BLOOD SPECIMENOrdering Facility: [facility] Address: [address] [place] [address] Performed By: #### 5 7021-8 ####[facility] LABIA [id number] [place] [address] Immature granulocytes/100 WBC (Bld) 0.6 % Normal [facility] Comment on above: Order Comment: Speci men Type: BLOOD SPECIMENOrdering Facility: [facility] Address: [address] [place] [address] Performed By: #### 5 7021-8 ####[facility] LABCLIA [id number] [place] [address] Lymphocytes (Bld) [#/Vol] 2.56 10*3/uL Normal 1.00-4.00 [facility] Comment on above: Order Comment: Speci men Type: BLOOD SPECIMENOrdering Facility: [facility] Address: [address] [place] [address] Performed By: #### 5 7021-8 ####[facility] LABCLIA [id number] [place] [address] Lymphocytes/100 WBC (Bld) 24.6 % Normal [facility] Comment on above: Order Comment: Speci men Type: BLOOD SPECIMENOrdering Facility: [facility] Address: [address] [place] [address] Performed By: #### 5 7021-8 ####[facility] LABCLIA [id number] [place] [address] MCH (RBC) [Entitic mass] 30.0 pg Normal 26.0-34.0 [facility] Comment on above: Order Comment: Speci men Type: BLOOD SPECIMENOrdering Facility: [facility] Address: [address] [place] [address] Performed By: #### 5 7021-8 ####[facility] LABIA [id number] [place] [address] MCHC (RBC) [Mass/Vol] 31.8 g/dL Normal 30.5-36.0 [facility] Comment on above: Order Comment: Speci men Type: BLOOD SPECIMENOrdering Facility: [facility] Address: [address] [place] [address] Performed By: #### 5 7021-8 ####[facility] LABIA [id number] [place] [address] MCV (RBC) [Entitic vol] 94.3 fL Normal 80.0-100.0 [facility] Comment on above: Order Comment: Speci men Type: BLOOD SPECIMENOrdering Facility: [facility] Address: [address] [place] [address] Performed By: #### 5 7021-8 ####[facility] LABIA [id number] [place] [address] Monocytes (Bld) [#/Vol] 0.86 10*3/uL Normal <0.87 [facility] Comment on above: Order Comment: Speci men Type: BLOOD SPECIMENOrdering Facility: [facility] Address: [address] [address] Performed By: #### 5 7021-8 ####[facility] LABCLIA [id number] [place] [address] Monocytes/100 WBC (Bld) 8.3 % Normal [facility] Comment on above: Order Comment: Speci men Type: BLOOD SPECIMENOrdering Facility: [facility] Address: [address] [place] [address] Performed By: #### 5 7021-8 ####[facility] LABCLIA [id number] [place] [address] Neutrophils (Bld) [#/Vol] 6.69 10*3/uL Normal 1.45-7.50 [facility] Comment on above: Order Comment: Speci men Type: BLOOD SPECIMENOrdering Facility: [facility] Address: [address] [place] [address] Performed By: #### 5 7021-8 ####[facility] LABCLIA [id number] [place] [address] Neutrophils/100 WBC (Bld) 64.2 % Normal [facility] Comment on above: Order Comment: Speci men Type: BLOOD SPECIMENOrdering Facility: [facility] Address: [address] [place] [address] Performed By: #### 5 7021-8 ####[facility] LABCLIA [id number] [place] [address] Nucleated RBC (Bld) [#/Vol] 10*3/uL Normal <0.01 [facility] Comment on above: Order Comment: Speci men Type: BLOOD SPECIMENOrdering Facility: [facility] Address: [address] [place] [address] Performed By: #### 5 7021-8 ####[facility] LABCLIA [id number] [place] [address] Nucleated RBC/100 WBC (Bld) [Ratio] 0.0 /100 WBC Normal [facility] Comment on above: Order Comment: Speci men Type: BLOOD SPECIMENOrdering Facility: [facility] Address: [address] [place] [address] Performed By: #### 5 7021-8 ####[facility] LABCLIA [id number] [place] [address] Platelet mean volume (Bld) [Entitic vol] 9.6 fL Normal 9.0-12.7 [facility] Comment on above: Order Comment: Speci men Type: BLOOD SPECIMENOrdering Facility: [facility] Address: [address] [place] [address] Performed By: #### 5 7021-8 ####[facility] LABCLIA [id number] [place] [address] Platelets (Bld) [#/Vol] 271 10*3/uL Normal 150-400 [facility] Comment on above: Order Comment: Speci men Type: BLOOD SPECIMENOrdering Facility: [facility] Address: [address] [place] [address] Performed By: #### 5 7021-8 ####[facility] LABCLIA [id number] [place] [address] RBC (Bld) [#/Vol] 4.07 10*6/uL Normal 3.90-5.20 [facility] Comment on above: Order Comment: Speci men Type: BLOOD SPECIMENOrdering Facility: [facility] Address: [address] [place] [address] Performed By: #### 5 7021-8 ####[facility] LABCLIA [id number] [place] [address] WBC (Bld) [#/Vol] 10.41 10*3/uL Normal 3.70-11.00 [facility] Comment on above: Order Comment: Speci men Type: BLOOD SPECIMENOrdering Facility: [facility] Address: [address] [place], [place] [address], [place] [address] Performed By: #### 5 7021-8 ####[facility] [id number] [place] [address] CNOVSPon 02-14-2023 CNOVSP Visit (SP) Office ([facility]) HARMAN MCLEOD ([id number]) 1940 F Date Time Provider Department 02/14/23 10:30 AM WALLACE STONE During your visit today, we recorded the following information about you: Temperature Pulse Respiration Blood pressure 97.4 degrees 102/minute 16/minute 151/90 Weight Height 84.5 kg 1.549 m Wallace Stone MD 02/14/2023 10:49 AM Signed PATIENT NAME: Harman Mcleod CLINIC NO.: [id number] ATTENDING PHYSICIAN: Wallace Stone MD DATE OF [...] Negative LVI, 2 SNL negative, ER and NM >95% positive, Her2 IHC 1+ Treatment History: [...] : Deferre (more content not included)... Normal [facility] ([id number]) 1940 F Date Time Provider Department 02/14/23 WALLACE STONE [facility] During your visit today, we recorded the following information about you: Angelica Bhakta Sec 02/14/2023 11:00 AM Signed Please ref to [facility] for Consult dx eczema They will call the patient to schedule after review of records. Janeth, Please fax records Dudley, Please check on this appt. Kira Ko [facility] 02/14/2023 1:14 PM Signed Records faxed [...] daily at bedtime. Cut in half - Pzovu-9-SXI-EPA-Fish Oil 1,000 mg (120 mg-180 mg) cap Take 2 g by mouth twice daily. - isosorbide mononitrate ER (IMDUR) 60 mg 24 hr tablet Take 60 mg by mouth twice daily. 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 Stage 3a chronic kidney disease (HCC) [N18.31] 02/14/2023 Encounter Status:Closed by ANGELICA MILLAN on 02/28/23 Normal [facility] Comprehensive metabolic 2000 panelon 02-14-2023 Albumin [Mass/Vol] 4.1 g/dL Normal 3.9-4.9 [facility] Comment on above: Order Comment: Speci men Type: BLOOD SPECIMENOrdering Facility: [facility] Address: [address] [place] [address] Performed By: #### 2 4323-8 ####[facility] LABCLIA [id number] [place] [address] ALP [Catalytic activity/Vol] 106 U/L Normal 34-123 [facility] Comment on above: Order Comment: Speci men Type: BLOOD SPECIMENOrdering Facility: [facility] Address: [address] [place] [address] Performed By: #### 2 4323-8 ####[facility] LABCLIA [id number] [place] [address] ALT [Catalytic activity/Vol] 14 U/L Normal 7-38 [facility] Comment on above: Order Comment: Speci men Type: BLOOD SPECIMENOrdering Facility: [facility] Address: [address] [place] [address] Performed By: #### 2 4323-8 ####[facility] LABCLIA [id number] [place] [address] Anion gap [Moles/Vol] 11 mmol/L Normal 9-18 [facility] Comment on above: Order Comment: Speci men Type: BLOOD SPECIMENOrdering Facility: [facility] Address: [address] [place] [address] Performed By: #### 2 4323-8 ####[facility] LABCLIA [id number] [place] [address] AST [Catalytic activity/Vol] 11 U/L Low 13-35 [facility] Comment on above: Order Comment: Speci men Type: BLOOD SPECIMENOrdering Facility: [facility] Address: [address] [place] [address] Performed By: #### 2 4323-8 ####[facility] LABCLIA [id number] [place] [address] Bilirubin [Mass/Vol] 0.3 mg/dL Normal 0.2-1.3 [facility] Comment on above: Order Comment: Speci men Type: BLOOD SPECIMENOrdering Facility: [facility] Address: [address] [place] [address] Performed By: #### 2 4323-8 ####[facility] LABCLIA [id number] [place] [address] Calcium [Mass/Vol] 10.2 mg/dL Normal 8.5-10.2 [facility] Comment on above: Order Comment: Speci men Type: BLOOD SPECIMENOrdering Facility: [facility] Address: [address] [place] [address] Performed By: #### 2 4323-8 ####[facility] LABCLIA [id number] [place] [address] Chloride [Moles/Vol] 98 mmol/L Normal 97-105 [facility] Comment on above: Order Comment: Speci men Type: BLOOD SPECIMENOrdering Facility: [facility] Address: [address] [place] [address] Performed By: #### 2 4323-8 ####[facility] LABCLIA [id number] [place] [address] CO2 [Moles/Vol] 31 mmol/L High 22-30 [facility] Comment on above: Order Comment: Speci men Type: BLOOD SPECIMENOrdering Facility: [facility] Address: [address] [address] Performed By: #### 2 4323-8 ####[facility] LABCLIA [id number] [place] [address] Creatinine [Mass/Vol] 1.25 mg/dL High 0.58-0.96 [facility] Comment on above: Order Comment: Speci men Type: BLOOD SPECIMENOrdering Facility: [facility] Address: [address] [address] Performed By: #### 2 4323-8 ####[facility] LABCLIA [id number] [place] [address] ESTIMATED GLOMERULAR FILTRATION RATE 44 mL/min/1.73m??? Low >=60 [facility] Comment on above: Order Comment: Speci men Type: BLOOD SPECIMENOrdering Facility: [facility] Address: [address] [place] [address] Result Comment: Ramila mated Glomerular Filtration Rate [...] actual GFR. Performed By: #### 2 4323-8 ####[facility] LABCLIA [id number] [place] [address] Glucose [Mass/Vol] 285 mg/dL High 74-99 [facility] Comment on above: Order Comment: Dinai anyi Type: BLOOD SPECIMENOrdering Facility: [facility] Address: [address] [place] [address] Result Comment: The [place] Diabetes Association (ADA) provides guidance for cutoff [...] Standards of Medical Care in Diabetes 2016, [place] Diabetes Association. Diabetes Care. 2016.39(Suppl 1). Performed By: #### 2 4323-8 ####[facility] LABCLIA [id number] [place] [address] Potassium [Moles/Vol] 3.7 mmol/L Normal 3.7-5.1 [facility] Comment on above: Order Comment: Speci men Type: BLOOD SPECIMENOrdering Facility: [facility] Address: [address] [place] [address] Performed By: #### 2 4323-8 ####[facility] LABCLIA [id number] [place] [address] Protein [Mass/Vol] 7.3 g/dL Normal 6.3-8.0 [facility] Comment on above: Order Comment: Dinai men Type: BLOOD SPECIMENOrdering Facility: [facility] Address: [address] [place] [address] Performed By: #### 2 4323-8 ####[facility] LABCLIA [id number] [place] [address] Sodium [Moles/Vol] 140 mmol/L Normal 136-144 [facility] Comment on above: Order Comment: Speci men Type: BLOOD SPECIMENOrdering Facility: [facility] Address: [address] [place] [address] Performed By: #### 2 4323-8 ####[facility] LABCLIA [id number] [place] [address] Urea nitrogen [Mass/Vol] 33 mg/dL High 7-21 [facility] Comment on above: Order Comment: Speci men Type: BLOOD SPECIMENOrdering Facility: [facility] Address: [place] [address] Performed By: #### 2 4323-8 ####[facility] LABCLIA [id number] [place] [address] Consultation Noteon 02-15-20 23 Consultation Note [id number]#[id number] 0CD:[id number] Normal [facility] Comment on above: Other Comment: TRACEY SIGALA PAGES CRR CULTURE URINEon 01-19-2023 CULTURE URINE Culture Observations : VERY LIGHT GROWTH OF MIXED GENITAL SAGE. NO POTENTIAL PATHOGENS SEEN. Normal [facility] Comment on above: Performed By: #### U RCX ####[facility] [address] [address]Dr. Omid Bowden UA RANDOM W/MICROSCOPICon BACTERIA TRACE Abnormal NONE SEEN [facility] Comment on above: Performed By: #### H GB #### [facility] [address] [address] [address] Omid Bowden Bilirubin Ql (U) Negative Normal NEGATIVE [facility] Comment on above: Performed By: #### H GB #### [facility] [address] [address] [address] Omid Bowden CAST NONE SEEN Normal NONE SEEN [facility] Comment on above: Performed By: #### H GB #### [facility] [address] [address] [address] Omid Bowden Clarity (U) CLEAR Normal CLEAR [facility] Comment on above: Performed By: #### H GB #### [facility] [address] [address] [address] Omid Bowden Color (U) LT. YELLOW Normal YELLOW [facility] Comment on above: Performed By: #### H GB #### [facility] [address] [address] [address] Omid Bowden Crystals LM Nom (Urine sed) NONE SEEN Normal NONE SEEN [facility] Comment on above: Performed By: #### H GB #### [facility] [address] [place] [address] Dr. Omid Bowden Epithelial cells LM Ql (Urine sed) RARE Normal NONE SEEN /RARE [facility] Comment on above: Performed By: #### H GB #### [facility] [address] [place] [address] Dr. Omid Bowden Glucose Ql (U) Negative Normal NEGATIVE [facility] Comment on above: Performed By: #### H GB #### [facility] [address] [place] [address] Dr. Omid Bowden Hemoglobin Ql (U) Negative Normal NEGATIVE [facility] Comment on above: Performed By: #### H GB #### [facility] [address] [place] [address] Dr. Omid Bowden Ketones Ql (U) Negative Normal NEGATIVE [facility] Comment on above: Performed By: #### H GB #### [facility] [address] [place] [address] Dr. Omid Bowden LEUKOCYTES SMALL Abnormal NEGATIVE [facility] Comment on above: Performed By: #### H GB #### [facility] [address] [place] [address] Dr. Omid Bowden MUCOUS NONE SEEN Normal NONE SEEN [facility] Comment on above: Performed By: #### H GB #### [facility] [address] [place] [address] Dr. Omid Bowden Nitrite Ql (U) Negative Normal NEGATIVE [facility] Comment on above: Performed By: #### H GB #### [facility] [address] [place] [address] Dr. Omid Bowden pH (U) 6.0 [pH] Normal 5-9 [facility] Comment on above: Performed By: #### H GB #### [facility] [address] [place] [address] Dr. Omid Bowden RBC 0-2 Normal 0-2 [facility] Comment on above: Performed By: #### H GB #### [facility] [address] [place] [address] Dr. Omid Bowden SPEC GRAVITY <=1.005 Abnormal 1.005-<=1.0 25 [facility] Comment on above: Performed By: #### H GB #### [facility] [address] [address] [address] Omid Bowden UA PROTEIN Negative Normal NEGATIVE/ TRACE [facility] Comment on above: Performed By: #### H GB #### [facility] [address] [address] [address] Omid Bowden Urobilinogen Qn (U) 0.2 {Jose'U}/dL Normal 0.2 - 1. 0 [facility] Comment on above: Performed By: #### H GB #### [facility] [address] [address] [address] Omid Bowden WBC 0-2 Abnormal NONE SEEN [facility] Comment on above: Performed By: #### H GB #### [facility] [address] [address] [address] Omid Bowden Blood Urea Nitrogenon 2022 Urea nitrogen [Mass/Vol] 35 mg/dL High 7-25 [facility] Comment on above: Performed By: #### B UN, CREAT #### [facility] [address] [place] [address] [place] Creatinineon 11-29-2022 Creatinine [Mass/Vol] 1.37 mg/dL High 0.60-1.20 [facility] Comment on above: Performed By: #### B UN, CREAT #### [facility] [address] [place] [address] [place] Creatinine Clr Calc Pharmacy 31.71 [facility] Comment on above: Result Comment: PERF ORMED BY: [place] [address] PATHOLOGIST PHOTOGRAPHY COORDINATOR MARIYA ATKINSON M.D. Performed By: #### B UN, CREAT #### [facility] [address] [place] [address] [place] GFR/1.73 sq M.predicted MDRD (S/P/Bld) [Vol rate/Area] 39.034 mL/min/{1.73_m2} [facility] Comment on above: Performed By: #### B UN, CREAT #### [facility] [address] [id number] [facility] Creatinine [Mass/volume] in Serum or PlasmaOrdered By: Christiano Gonzales on 11-29-2022 Creatinine [Mass/Vol] 1.37 mg/dL 0.60-1.20 [facility] - Chemistry and C hemistry - challengeOrdered By: Christiano Gonzales on 11-29-2022 GFR/1.73 sq M.predicted MDRD (S/P/Bld) [Vol rate/Area] 39.034 mL/min/{1.73_m2} [facility] No Panel InformationOrdered By: Chirstiano Gonzales on 11-29-2022 Pharmacy Creatinine Clearance (Chem 31.71 [facility] Urea nitrogen [Mass/volume] in Serum or PlasmaOrdered By: Christiano Gonzales on 11-29-2022 Urea nitrogen [Mass/Vol] 35 mg/dL 7 [facility] Surgical Pathologyon 023 Surgical Pathology (NOTE) -- [...] CONSULTATION Patient Name: HARMAN MCLEOD Med Rec: [id number] Path Number: [id number] [facility] ANATOMIC PATHOLOGY [address] [place] [id number] Normal [facility] Comment on above: Performed By: #### P PPVS #### [facility] [address] [place] [address] Independent Film Maker: Fidel Hylton MD Ambulatory Visit Summaryon 0 [...] and diastolic (congestive) heart failure Atherosclerosis of [place] artery of extremity BMI 36.0-36.9,adult Brain stem [...] Stage 2 chronic kidney disease Normal [facility] General Surgery Office/Clini c Noteon 11-22-2022 General [...] DANIEL Only if needed [address] [place] [address]- Additional Instructions: Problem List/Past Medical History Ongoing 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 Normal [facility] Comment on above: Result Comment: Elec tronically Signed By: CHELSI CARDONA, Iliana Alvarez\Date and Time Signed: 11/22/22 15:17 EDT [facility]19 [facility]on SARS-CoV-2 (COVID-19) RNA MARII+probe Ql (Unsp spec) Not detected Normal NOT DETECTED [facility] Comment on above: Result Comment: When diagnostic [...] for this test is supported by the [place] of Health and Human Service's declaration that [...] used). Performed By: #### H GB #### [facility] [address] [place], [place] [address] Dr. Omid Bowden INFLUENZA A AND B AGon 11-16 [facility] SEE BELOW Normal [facility] Comment on above: Result Comment: Nega tive for Flu A protein angiten. Infection due to Flu A cannot be ruled out. Flu A angiten in the sample may be below the detection limit of the test. Performed By: #### I NFLUAB ####[facility] [address] [address]Dr. Omid Bowden [facility] SEE BELOW Normal [facility] Comment on above: Result Comment: Nega tive for Flu B protein antigen. Infection due to Flu B cannot be ruled out. Flu B antigen in the sample may be below the detection limit of the test. Performed By: #### I NFLUAB ####[facility] [address] [place] [address]Dr. Omid Bowden INFLUENZA A AG Negative Normal NEGATIVE SEE COMMENT [facility] Comment on above: Performed By: #### I NFLUAB ####[facility] [address] [place] [address]Dr. Omid Bowden INFLUENZA B AG Negative Normal NEGATIVE SEE COMMENT [facility] Comment on above: Performed By: #### I NFLUAB ####[facility] [address] [place] [address]DrMedardo Bowden CNOVSPon 11-09-2022 CNOVSP Visit (SP) Office ([place]) HARMAN MCLEOD ([id number]) 1940 F Date Time Provider Department 11/09/22 2:00 PM WALLACE STONE During your visit today, we recorded the following information about you: Temperature Pulse Respiration Blood pressure 97.1 degrees 66/minute 18/minute 142/72 Weight Height 84.7 kg 1.549 m Wallace Stone MD 11/09/2022 2:24 PM Signed PATIENT NAME: Harman Mcleod CLINIC NO.: [id number] ATTENDING PHYSICIAN: Wallace Stone MD DATE OF SERVICE: November 09, [address] Banks referring provider defined for this encounter. here is an update on a follow up visit on female Harman Mcleod at the clinic 11/09/2022 Diagnosis: T1b, N0, M0- R breast, Tumor 9 mm, Grade 2, Margins negative, Negative LVI, 2 SNL negative, ER and NM >95% positive, Her2 IHC 1+ Treatment History: [...] LABS: Gluc (more content not included)... Normal [facility] CNPNon 11-09-2022 CNPN Telephone (NCCAP) HARMAN MCLEOD ([id number]) 1940 F Date Time Provider Department 11/09/22 WALLACE STONE [facility] During your visit today, we recorded the following information about you: Carlos Brooks 11/09/2022 2:45 PM Signed Vascular Consult [facility] Previous patient of Dr. Mendez 3 years or more. Janeth/Dudley: Can you please refer patient and follow up? Thanks! Carlos Pereira Pss 11/10/2022 8:46 AM Signed Janeth: Information ready for you. Adriana Pereira Pss Kira Ko [facility] 11/10/2022 9:38 AM Signed Records faxed. [...] Fully Assessed Reason for Visit: Referral Information [0168] Cmt: Vascular Consult Prescriptions as of 11/16/2022 [...] daily at bedtime. Cut in half - Zvpbg-3-DPW-EPA-Fish Oil 1,000 mg (120 mg-180 mg) cap Take 2 g by mouth twice daily. - isosorbide mononitrate ER (IMDUR) 60 mg 24 hr tablet Take 60 mg by mouth twice daily. Problem List As Of Date 11/09/2022 Noted Resolved Hypertension [I10] DM type 2 (diabetes mellitus, type 2) ([facility]) [E1* Essential hypertension [I10] 01/16/2017 Type 2 diabetes mellitus without complication, *01/16/2017 Hypothyroidism [E03.9] 01/16/2017 Dyslipidemia [E78.5] 01/16/2017 Atherosclerosis of [place] coronary artery of na*01/16/2017 S/P coronary artery stent placement [Z95.5] 01/16/2017 Moderate smoker (20 or less per day) [F17.210] 01/16/2017 PAD (peripheral artery disease) ([facility]) [I73.9] 01/16/2017 Vaginal lesion [N89.8] 01/20/2017 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 Encounter Status:Closed by CARLOS BROOKS on 11/16/22 Normal [facility] Ambulatory Visit Summaryon 0 11-08-2022 Ambulatory Visit [...] and diastolic (congestive) heart failure Atherosclerosis of [place] artery of extremity BMI 36.0-36.9,adult Brain stem [...] Stage 2 chronic kidney disease Normal [place] General Surgery Office/Clini c Noteon 11-08-2022 General [...] and diastolic (congestive) heart failure Atherosclerosis of [place] artery of extremity BMI 36.0-36.9,adult Brain stem [...] Tran (more content not included)... Normal [place] Comment on above: Result Comment: Elec tronically [...] Ramirez Where: General Surgery Chelsi/Angelita Lindy [facility] General Surgery Office/Clini c Noteon 11-04-2022 General [...] and diastolic (congestive) heart failure Atherosclerosis of [place] artery of extremity BMI 36.0-36.9,adult Brain stem [...] Family Histor (more content not included)... Normal [facility] Comment on above: Result Comment: Elec tronically [...] MIGUELITO TELLEZ Date: 2022-11-02 17:17 Normal [facility] Pathology Noteon 10-26-2022 Pathology Note [id number]#1.0 0CD:127 Normal [facility] Ambulatory Visit Summaryon 0 10-25-2022 Ambulatory Visit [...] MD Where: General Surgery Nill/Angelita Israel Normal [facility] General Surgery Office/Clini c Noteon 10-25-2022 General [...] and diastolic (congestive) heart failure Atherosclerosis of [place] artery of extremity BMI 36.0-36.9,adult Brain stem [...] disease: Mo (more content not included)... Normal [facility] Comment on above: Result Comment: Elec tronically Signed By: CHELSI CARDONA, Iliana Alvarez\Date and Time Signed: 10/25/22 16:13 EST Operative Reporton Operative Report [id number]#1.0 0CD:127 Normal [facility] RAD - Ultrasound Reporton RAD - Ultrasound Report [id number]#1.0 0CD:127 Normal [facility] NM SENTNL NODEon 10-19-2022 NM SENTNL NODE [...] by: KRISTIN JAQUEZ Date: 2022-10-19 10:41 Normal [facility] POINT OF CARE GLUCOSEon 02-0 Glucose [Mass/Vol] 153 mg/dL Critically high 74-106 [facility] Comment on above: Performed By: #### P OCGLUC #### [facility] [address] [place] [address] Dr. Omid Bowden RAD - MISCon 10-19-2022 RAD - MISC [id number] 0CD:127 Normal [facility] RAD - MISC [id number] 20 [id number]#1.0 0CD:127 Normal [facility] RAD - Ultrasound Reporton RAD - Ultrasound Report [id number] 0CD:127 Normal [facility] RAD - Ultrasound Report [id number]#1.0 0CD:127 Normal [facility] US BREAST SPECIMENon 023 US BREAST SPECIMEN Patient: HARMAN MCLEOD Exam Date: 10/19/2022 : 1940 Gender:F Ordering : DR ILIANA GAGNON . Admission #: [id number] Family : Order #: [id number] CLICK HERE TO VIEW EXAM RADIOLOGY REPORT PROCEDURE: US BREAST SPECIMEN COMPARISON: None. INDICATIONS: Specimen from breast FINDINGS: Breast specimen demonstrates inclusion of the targeted mass as well as the micro clip marker CONCLUSION: Targeted mass and micro clip marker included within the specimen Dictated by: Judson Bauman MD on 10/19/2022 at 11:46 Approved by: Judson Bauman MD on 10/19/2022 at 11:47 Normal [facility] US GUIDE LOCAL BREAST RTon 0 10-19-2022 US GUIDE LOCAL BREAST RT Patient: HARMAN MCLEOD Exam Date: 10/19/2022 : 1940 Gender:F Ordering : DR ILIANA GAGNON . Admission #: [id number] Family : Order #: [id number] CLICK HERE TO VIEW EXAM RADIOLOGY REPORT [...] clip marker LOCATION: Right breast 9 NEEDLE: Nanorexs spring hook; 20 g by 5 cm needle and wire. MEDICATION: 6 cubic cm Superficial and deep buffered 1% lidocaine. COMPLICATIONS: None. CONCLUSION: Technically successful hookwire localization. Dictated by: Judson Bauman MD on 10/19/2022 at 09:04 Approved by: Judson Bauman MD on 10/19/2022 at 09:05 Normal [facility] US SENTINEL NODEon US SENTINEL NODE EXAM: [...] by: JUDSON BAUMAN Date: 2022-10-19 08:59 Normal [facility] RAD - MISCon 10-17-2022 RAD - MISC [id number] 20 [id number]#1.0 0CD:127 Normal [facility] CBC AUTO DIFFon 10-11-2022 BASO # 0.0 103/ul Normal 0.0-0.1 [facility] Comment on above: Performed By: #### H GB #### [facility] [address] [place] [address] Dr. Omid Bowden Basophils/100 WBC (Bld) 0.2 % Normal 0.2-2.0 [facility] Comment on above: Performed By: #### H GB #### [facility] [address] [place] [address] Dr. Omid Bowden EO # 0.0 103/ul Normal 0.0-0.7 [facility] Comment on above: Performed By: #### H GB #### [facility] [address] [place] [address] Dr. Omid Bowden Eosinophils/100 WBC (Bld) 0.3 % Critically low 0.9-7.0 [facility] Comment on above: Performed By: #### H GB #### [facility] [address] [place] [address] Dr. Omid Bowden Erythrocyte distribution width (RBC) [Ratio] 13.7 % Normal 11.0-15.0 [facility] Comment on above: Performed By: #### H GB #### [facility] [address] [place] [address] Dr. Omid Bowden Hematocrit (Bld) [Volume fraction] 39.6 % Normal 36.0-48.0 [facility] Comment on above: Performed By: #### H GB #### [facility] [address] [place] [address] Dr. Omid Bowden Hemoglobin (Bld) [Mass/Vol] 12.3 g/dL Normal 12.0-16.0 [facility] Comment on above: Performed By: #### H GB #### [facility] [address] [place] [address] Dr. Omid Bowden IG # 0.06 10e3/ul Critically high 0.00-0.03 [facility] Comment on above: Performed By: #### H GB #### [facility] [address] [place] [address] Dr. Omid Bowden IG % 0.5 % Normal 0.0-0.5 [facility] Comment on above: Performed By: #### H GB #### [facility] [address] [place] [address] Dr. Omid Bowden LYMPH # 2.9 103/ul Normal 1.2-3.8 [facility] Comment on above: Performed By: #### H GB #### [facility] [address] [place] [address] Dr. Omid Bowden Lymphocytes/100 WBC (Bld) 26.2 % Normal 20.5-60.0 [facility] Comment on above: Performed By: #### H GB #### [facility] [address] [place] [address] Dr. Omid Bowden MANUAL DIFF REQ NO Normal [facility] Comment on above: Performed By: #### H GB #### [facility] [address] [place] [address] Dr. Omid Bowden MCH (RBC) [Entitic mass] 28.3 pg Normal 26.7-34.0 [facility] Comment on above: Performed By: #### H GB #### [facility] [address] [address] [address] Omid Bowden MCHC (RBC) [Mass/Vol] 31.1 g/dL Normal 29.9-35.2 [facility] Comment on above: Performed By: #### H GB #### [facility] [address] [address] [address] Omid Bowden MCV (RBC) [Entitic vol] 91.2 fL Normal 81.0-99.0 [facility] Comment on above: Performed By: #### H GB #### [facility] [address] [address] [address] Omid Bowden MONO # 0.9 103/ul Critically high 0.3-0.[address] [facility] Comment on above: Performed By: #### H GB #### [facility] [address] [address] [address] Omid Bowden Monocytes/100 WBC (Bld) 8.3 % Normal 1.7-12.0 [facility] Comment on above: Performed By: #### H GB #### [facility] [address] [address] [address] Omid Bowden NEUT # 7.0 103/ul Critically high 1.4-6.[address] [facility] Comment on above: Performed By: #### H GB #### [facility] [address] [address] [address] Omid Bowden Neutrophils/100 WBC (Bld) 64.5 % Normal 43.0-75.0 [facility] Comment on above: Performed By: #### H GB #### [facility] [address] [address] [address] Omid Bowden Platelet mean volume (Bld) [Entitic vol] 9.2 fL Critically low 9.5-13.5 [facility] Comment on above: Performed By: #### H GB #### [facility] [address] [address] [address] Omid Bowden PLT 346 103/ul Normal 150-450 [facility] Comment on above: Performed By: #### H GB #### [facility] [address] [place] [address] Dr. Omid Bowden RBC 4.34 106/ul Normal 4.20-5.40 [facility] Comment on above: Performed By: #### H GB #### [facility] [address] [address] [address] Omid Bowden WBC 10.9 103/ul Normal 4.0-11.0 [facility] Comment on above: Performed By: #### H GB #### [facility] [address] [place] [address] Dr. Omid Bowden PROF CHEM 8 (BAS METB)on Anion gap [Moles/Vol] 11.0 mmol/L Normal [facility] Comment on above: Performed By: #### L IPID, BMP #### [facility] [address] [place] [address] Dr. Omid Bowden Calcium [Mass/Vol] 9.6 mg/dL Normal 8.5-10.1 [facility] Comment on above: Performed By: #### L IPID, BMP #### [facility] [address] [place] [address] Dr. Omid Bowden Chloride [Moles/Vol] 99 mmol/L Normal 98-107 [facility] Comment on above: Performed By: #### L IPID, BMP #### [facility] [address] [place] [address] Dr. Omid Bowden CO2 [Moles/Vol] 32.0 mmol/L Normal 21.0-32.0 [facility] Comment on above: Performed By: #### L IPID, BMP #### [facility] [address] [place] [address] Dr. Omid Bowden Creatinine [Mass/Vol] 1.03 mg/dL Critically high 0.55-1.02 [facility] Comment on above: Performed By: #### L IPID, BMP #### [facility] [address] [address] [address] Omid Bowden EGFR-AF CUBAN >60 Normal >=60 [facility] Comment on above: Performed By: #### L IPID, BMP #### [facility] [address] [address] [address] Omid Bowden EGFR-NON AF CUBAN 52 mL/min/1.73m2 Critically low >=60 [facility] Comment on above: Performed By: #### L IPID, BMP #### [facility] [address] [address] [address] Omid Bowden Glucose [Mass/Vol] 94 mg/dL Normal 74-106 [facility] Comment on above: Performed By: #### L IPID, BMP #### [facility] [address] [place] [address] Dr. Omid Bowden Potassium [Moles/Vol] 4.0 mmol/L Normal 3.5-5.1 [facility] Comment on above: Performed By: #### L IPID, BMP #### [facility] [address] [place] [address] Dr. Omid Bowden Sodium [Moles/Vol] 138 mmol/L Normal 136-145 [facility] Comment on above: Performed By: #### L IPID, BMP #### [facility] [address] [place] [address] Dr. Omid Bowden Urea nitrogen [Mass/Vol] 28.0 mg/dL Critically high 7.0-18.0 [facility] Comment on above: Performed By: #### L IPID, BMP #### [facility] [address] [place] [address] Dr. Omid Bowden Urea nitrogen/Creatinine [Mass ratio] 27.2 mg/mg Normal [facility] Comment on above: Performed By: #### L IPID, BMP #### [facility] [address] [address] [address] Omid Bowden PROTIMEon 10-11-2022 INR Coag (PPP) [Relative time] 0.99 {INR} Normal [facility] Comment on above: Performed By: #### H GB #### [facility] [address] [place] [address] Dr. Omid Bowden INR GUIDELINES SEE BELOW Normal [place] Comment on above: Result Comment: PERLITA RED INR: 2.0 - 3.0 CONDITIONS NOT LISTED BELOW 2.5 - 3.5 FOR PROSTHETIC HEART VALVE REPLACEMENT 2.5 - 3.5 RECURRENT THROMBOSIS Performed By: #### H GB #### [facility] [address] [place] [address] Dr. Omid Bowden PT Coag (PPP) [Time] 10.5 s Normal 9.0-11.6 [facility] Comment on above: Performed By: #### H GB #### [facility] [address] [place] [address] Dr. Omid Bowden PTTon 10-11-2022 aPTT Coag (Bld) [Time] 28.6 s Normal 22.3-36.2 [facility] Comment on above: Performed By: #### H GB #### [facility] [address] [place] [address] Dr. Omid Bowden Consultation Noteon 10-06-19 Consultation Note [id number]#1.0 0CD:127 Normal [facility] INSULINon 10-01-2022 Insulin 22.8 uIU/mL Normal 2.6-24.9 [facility] Comment on above: Performed By: #### L IPID, BMP #### [facility] [address] [place] [address] Dr. Omid Bowden GLYCOHEMOGLOBIN A1Con 2022 ADA RECOMMENDATION SEE BELOW Normal [facility] Comment on above: Result Comment: ADA RECOMMENDED LIMIT 4.0 - 6.0 ADA THERAPEUTIC TARGET < 7.0 ACTION SUGGESTED > 7.0 Performed By: #### H GB #### [facility] [address] [place] [address] Dr. Omid Bowden Glucose [Mass/Vol] 177 mg/dL Normal [facility] Comment on above: Performed By: #### H GB #### [facility] [address] [address] [address] Omid Bowden HbA1c (Bld) [Mass fraction] 7.8 % Critically high 4.5-6.2 [facility] Comment on above: Performed By: #### H GB #### [facility] [address] [address] [address] Omid Bowden PROF 14(COMP METB)on 023 Albumin [Mass/Vol] 3.0 g/dL Critically low 3.4-5.0 [facility] Comment on above: Performed By: #### C MP ####[facility] [address] [place] [address]DrMedardo Bowden Albumin/Globulin [Mass ratio] 0.7 {ratio} Normal [facility] Comment on above: Performed By: #### C MP ####[facility] [address] [place] [address]DrMedardo Bowden ALP [Catalytic activity/Vol] 73 U/L Normal 46-116 [facility] Comment on above: Performed By: #### C MP ####[facility] [address] [place] [address]DrMedardo Bowden ALT [Catalytic activity/Vol] 16 U/L Normal 14-59 [facility] Comment on above: Performed By: #### C MP ####[facility] [address] [place] [address]DrMedardo Bowden Anion gap [Moles/Vol] 11.3 mmol/L Normal [facility] Comment on above: Performed By: #### C MP ####[facility] [address] [place] [address]DrMedardo Bowden AST [Catalytic activity/Vol] 14 U/L Critically low 15-37 [facility] Comment on above: Performed By: #### C MP ####[facility] [address] [place] [address]DrMedardo Bowden Bilirubin [Mass/Vol] 0.3 mg/dL Normal 0.2-1.0 [facility] Comment on above: Performed By: #### C MP ####[facility] [address] [place] [address]Dr. Omid Bowden Calcium [Mass/Vol] 9.5 mg/dL Normal 8.5-10.1 [facility] Comment on above: Performed By: #### C MP ####[facility] [address] [place] [address]Dr. Omid Bowden Chloride [Moles/Vol] 102 mmol/L Normal 98-107 [facility] Comment on above: Performed By: #### C MP ####[facility] [address] [place], [place] [address]Dr. Omid Bowden CO2 [Moles/Vol] 31.1 mmol/L Normal 21.0-32.0 [facility] Comment on above: Performed By: #### C MP ####[facility] [address] [place], [place] [address]Dr. Omid Bowden Creatinine [Mass/Vol] 1.28 mg/dL Critically high 0.55-1.02 [facility] Comment on above: Performed By: #### C MP ####[facility] [address] [place], [place] [address]Dr. Omid Bowden EGFR-AF CUBAN 49 mL/min/1.73m2 Critically low >=60 [facility] Comment on above: Performed By: #### C MP ####[facility] [address] [place], [place] [address]Dr. Omid Bowden EGFR-NON AF CUBAN 40 mL/min/1.73m2 Critically low >=60 [facility] Comment on above: Performed By: #### C MP ####[facility] [address] [place], [place] [address]Dr. Omid Bowden Globulin (S) [Mass/Vol] 4.4 g/dL Normal [facility] Comment on above: Performed By: #### C MP ####[facility] [address] [place], [place] [address]Dr. Omid Bowden Glucose [Mass/Vol] 103 mg/dL Normal 74-106 [facility] Comment on above: Performed By: #### C MP ####[facility] [address] [id number][address] Omid Bowden Potassium [Moles/Vol] 4.4 mmol/L Normal 3.5-5.1 [facility] Comment on above: Performed By: #### C MP ####[facility] [address] [place] [id number]. Omid Bowden Protein [Mass/Vol] 7.4 g/dL Normal 6.4-8.2 [facility] Comment on above: Performed By: #### C MP ####[facility] [address] [address]Dr. Omid Bowden Sodium [Moles/Vol] 140 mmol/L Normal 136-145 [facility] Comment on above: Performed By: #### C MP ####[facility] [address] [place] [address]Dr. Omid Bowden Urea nitrogen [Mass/Vol] 27.0 mg/dL Critically high 7.0-18.0 [facility] Comment on above: Performed By: #### C MP ####[facility] [address] [place] [address]Dr. Omid Bowden Urea nitrogen/Creatinine [Mass ratio] 21.1 mg/mg Normal [facility] Comment on above: Performed By: #### C MP ####[facility] [address] [address]Dr. Omid Bowden Formson 09-29-2022 Forms [id number]#1.0 0CD:127 Normal [facility] Consent for Procedure/Surger yon 09-26-2022 Consent for Procedure/Surgery [id number]#1.0 0CD:127 Normal [facility] Consultation Noteon 09-23-19 Consultation Note [id number]#1.0 0CD:127 Normal [facility] CNOVon 09-22-2022 CNOV Office Visit (RADTSA ) HARMAN MCLEOD ([id number]) 1940 F Date Time Provider Department 09/22/22 1:00 PM MARCIN SHAH During your visit today, we recorded the following information about you: Marcin Shah MD 2022 6:06 AM Addendum Radiation Oncology - New Patient/Consult Note PATIENT NAME: Harman Mcleod PATIENT REQUESTING PHYSICIAN: Dr. 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 PATIENT IDENTIFICATION: This patient was seen in the Department of Radiation Oncology at the [facility] with Marcin Shah MD. She was accompanied today by her family. Final recommendations will be communicated back to the requesting physician by way of the shared medical record, or letter to requesting physician via US mail. HISTORY OF PRESENT ILLNESS: Ms. Mcleod is an 82-year-old woman from [place], [place] who was discovered on screening mammogram from July 2022 to have an abnormality within the anterior upper outer quadrant of the right breast. This was confirmed on ultrasound and she underwent stereotactic biopsy on 08/19/2022 with pathology revealing intermediate grade IDC that was ER/NM positive HER2 negative. She has met with [...] tablet crenshaw (more content not included)... Normal [facility] CNOVSPon 09-22-2022 CNOVSP Visit (SP) Office (HEMASA) HARMAN MCLEOD ([id number]) 1940 F Date Time Provider Department 09/22/22 11:30 AM WALLACE STONE During your visit today, we recorded the following information about you: Temperature Pulse Respiration Blood pressure 97.8 degrees 70/minute 16/minute 137/64 Weight Height 84.8 kg 1.549 m Wallace Stone MD 09/22/2022 5:19 PM Signed PATIENT NAME: Harman Mcleod CLINIC NO.: [id number] ATTENDING PHYSICIAN: Wallace Stone MD DATE OF [...] provisional grade 1 through 2, ER and NM greater than 95% positive, HER2/holden negative with an IHC score of 1+ and FISH negative at [facility]. This patient was subsequently referred to Dr. Iliana Gagnon for surgical consultation. Patient denies any previous history of abnormal mammograms and or breast biopsy. She has had a recent bone density in [place] and was diagnosed with osteoporosis and started on Prolia as well. Patient has a sister who was diagnosed with breast cancer at the age of 82 and her daughter diagnosed with breast cancer at the age of 37. She quit smoking approximately 4 years ago. 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 She [...] mouth daily at bedtime. Cut in half Uzchz-5-LPA-EPA-Fish Oil 1,000 mg (120 mg-180 mg) cap [...] high r (more content not included)... Normal [facility] Destinee 09-22-2022 JENNY Telephone (INDIA) HARMAN MCLEOD ([id number]) 1940 F Date Time Provider Department 09/22/22 [...] Fully Assessed Reason for Visit: Care Coordination [7546] Cmt: Surgery update Prescriptions as of 09/22/2022 [...] daily at bedtime. Cut in half - Ibmro-7-BTG-EPA-Fish Oil 1,000 mg (120 mg-180 mg) cap Take 2 g by mouth twice daily. - isosorbide mononitrate ER (IMDUR) 60 mg 24 hr tablet Take 60 mg by mouth twice daily. Problem List As Of Date 09/22/2022 Noted Resolved Hypertension [I10] DM type 2 (diabetes mellitus, type 2) ([facility]) [E1* Essential hypertension [I10] 01/16/2017 Type 2 diabetes mellitus without complication, *01/16/2017 Hypothyroidism [E03.9] 01/16/2017 Dyslipidemia [E78.5] 01/16/2017 Atherosclerosis of [place] coronary artery of na*01/16/2017 S/P coronary artery stent placement [Z95.5] 01/16/2017 Moderate smoker (20 or less per day) [F17.210] 01/16/2017 PAD (peripheral artery disease) ([facility]) [I73.9] 01/16/2017 Vaginal lesion [N89.8] 01/20/2017 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 Performed By: #### C VDTBH ####[facility] [address] [place] [address]Dr. Omid Bowden INFLUENZA A AND B AGon 09-21 INFLUANE SEE BELOW Normal [facility] Comment on above: Result Comment: Nega tive for Flu A protein angiten. Infection due to Flu A cannot be ruled out. Flu A angiten in the sample may be below the detection limit of the test. Performed By: #### I NFLUAB ####[facility] [address] [place] [address]Dr. Omid Bowden INFLUBNEGH SEE BELOW Normal [facility] Comment on above: Result Comment: Nega tive for Flu B protein antigen. Infection due to Flu B cannot be ruled out. Flu B antigen in the sample may be below the detection limit of the test. Performed By: #### I NFLUAB ####[facility] [address] [place], [place] [address]Jg. Omid Bowden INFLUENZA A AG Negative Normal NEGATIVE SEE COMMENT [facility] Comment on above: Performed By: #### I NFLUAB ####[facility] [address] [place], [place] [address]Pt. Omid Bowden INFLUENZA B AG Negative Normal NEGATIVE SEE COMMENT [facility] Comment on above: Performed By: #### I NFLUAB ####[facility] [address] [place], [place] [address]Wk. Omid Bowden 37on 09-16-2022 37 -Check blood work today. Will let you know whether to continue hydrochlorothiazide or switch to a new medication called Spironolactone. -Ok to proceed with lumpectomy Normal [facility] LIPID PROFILEon 09-16-2022 CHOL-HDL RATIO NORM SEE BELOW Normal [facility] Comment on above: Result Comment: 3.3 - 4.4 LOW RISK 4.4 - 7.1 AVERAGE RISK 7.1 - 11.0 MODERATE RISK >11.0 HIGH RISK Performed By: #### L IPID, BMP #### [facility] [address] [place] [address] Dr. Omid Bowden Cholesterol [Mass/Vol] 210 mg/dL Critically high <=200 [facility] Comment on above: Performed By: #### L IPID, BMP #### [facility] [address] [address] [address] Omid Bowden Cholesterol in HDL [Mass/Vol] 49 mg/dL Normal 40-60 [facility] Comment on above: Performed By: #### L IPID, BMP #### [facility] [address] [address] [address] Omid Bowden Cholesterol in LDL [Mass/Vol] 84.2 mg/dL Normal [facility] Comment on above: Performed By: #### L IPID, BMP #### [facility] [address] [address] [address] Omid Bowden Cholesterol.total/Chol esterol in HDL [Mass ratio] 4.3 {ratio} Normal [facility] Comment on above: Performed By: #### L IPID, BMP #### [facility] [address] [address] [address] Omid Bowden HDL NORMAL > or = 60 mg/dl - LO W CARDIOVASCULAR RISK <40 mg/dl - HIGH CARDIOVASCULAR RISK Normal [facility] Comment on above: Performed By: #### L IPID, BMP #### [facility] [address] [address] [address] Omid Bowden LDL CALC NORMAL SEE BELOW Normal [facility] Comment on above: Result Comment: <100 mg/dl OPTIMAL 100 - 129 mg/dl NEAR OR ABOVE OPTIMAL 130 - 159 mg/dl BORDERLINE HIGH 160 - 189 mg/dl HIGH >190 mg/dl VERY HIGH Performed By: #### L IPID, BMP #### [facility] [address] [address] [address] Omid Bowden Triglyceride [Mass/Vol] 384 mg/dL Critically high <=150 [facility] Comment on above: Performed By: #### L IPID, BMP #### [facility] [address] [address] [address] Omid Bowden VLDL CALC 76.8 mg/dL Normal [facility] Comment on above: Performed By: #### L IPID, BMP #### [facility] [address] [address] [address] Omid Bowden Office Visiton 09-16-2022 Follow-up visit [id number] Harman Mcleod 1940 F Date Provider Department Center 09/16/2022 [id number] QUEEN [facility] Family History Problem Relation Age of Onset Stroke Mother Coronary artery disease Father Heart attack Father Family Status - Relation Status Age at Mother Father Level of Service:28680 NM OFFICE/OUTPATIENT ESTABLISHED MOD MDM 30-39 MIN Reason for Visit and Comments: Atrial Fibrillation [80] Coronary Artery Disease [187] Congestive Heart Failure [127] Hypertension [985538] Peripheral Vascular Disease [458] Normal [facility] PROF CHEM 8 (BAS METB)on Anion gap [Moles/Vol] 10.8 mmol/L Normal [facility] Comment on above: Performed By: #### L IPID, BMP #### [facility] [address] [place] [address] Dr. Omid Bowden Calcium [Mass/Vol] 8.8 mg/dL Normal 8.5-10.1 [facility] Comment on above: Performed By: #### L IPID, BMP #### [facility] [address] [place] [address] Dr. Omid Bowden Chloride [Moles/Vol] 98 mmol/L Normal 98-107 [facility] Comment on above: Performed By: #### L IPID, BMP #### [facility] [address] [place] [address] Dr. Omid Bowden CO2 [Moles/Vol] 34.5 mmol/L Critically high 21.0-32.0 [facility] Comment on above: Performed By: #### L IPID, BMP #### [facility] [address] [place] [address] Dr. Omid Bowden Creatinine [Mass/Vol] 1.17 mg/dL Critically high 0.55-1.02 [facility] Comment on above: Performed By: #### L IPID, BMP #### [facility] [address] [place] [address] Dr. Omid Bowden EGFR-AF CUBAN 54 mL/min/1.73m2 Critically low >=60 [facility] Comment on above: Performed By: #### L IPID, BMP #### [facility] [address] [place] [address] Dr. Omid Bowden EGFR-NON AF CUBAN 45 mL/min/1.73m2 Critically low >=60 [facility] Comment on above: Performed By: #### L IPID, BMP #### [facility] [address] [place] [address] Dr. Omid Bowden Glucose [Mass/Vol] 193 mg/dL Critically high 74-106 [facility] Comment on above: Performed By: #### L IPID, BMP #### [facility] [address] [address] [address] Omid Bowden Potassium [Moles/Vol] 3.3 mmol/L Critically low 3.5-5.1 [facility] Comment on above: Performed By: #### L IPID, BMP #### [facility] [address] [place] [address] [address] Omid Bowden Sodium [Moles/Vol] 140 mmol/L Normal 136-145 [facility] Comment on above: Performed By: #### L IPID, BMP #### [facility] [address] [place] [address] [address] Omid Bowden Urea nitrogen [Mass/Vol] 31.0 mg/dL Critically high 7.0-18.0 [facility] Comment on above: Performed By: #### L IPID, BMP #### [facility] [address] [place] [address] [address] Omid Bowden Urea nitrogen/Creatinine [Mass ratio] 26.5 mg/mg Normal [facility] Comment on above: Performed By: #### L IPID, BMP #### [facility] [address] [address] [address] Omid Bowden Facesheeton 09-13-2022 Facesheet [id number]#1.0 0CD:127 Normal [facility] Consultation Noteon 09-01-20 Consultation Note [id number] 0CD:127 Normal [facility] ED Note-Physicianon 09-01-20 ED Note-Physician [id number]#1.0 0CD:127 Normal [facility] Lab Reportson 09-01-2022 Lab Reports [id number]#1.0 0CD:127 Normal [facility] Lab Reports [id number] 0CD:127 Normal [facility] Physician Referralon 022 Physician Referral [id number]#1.0 0CD:127 Normal [facility] C. DIFF PCRon 08-23-2022 C. DIFFICILE PCR Negative Normal NEGATIVE [facility] Comment on above: Performed By: #### C DIFPOC ####[facility] [address] [place] [address]Dr. Omid Bowden CBC AUTO DIFFon 08-19-2022 BASO # 0.0 103/ul Normal 0.0-0.1 [facility] Comment on above: Performed By: #### C BC ####[facility] [address] [place], [place] [address]Dr. Omid Bowden Basophils/100 WBC (Bld) 0.3 % Normal 0.2-2.0 [facility] Comment on above: Performed By: #### C BC ####[facility] [address] [place], [place] [address]Dr. Omid Bowden EO # 0.5 103/ul Normal 0.0-0.7 [facility] Comment on above: Performed By: #### C BC ####[facility] [address] [place], [place] [address]Dr. Omid Bowden Eosinophils/100 WBC (Bld) 3.2 % Normal 0.9-7.0 [facility] Comment on above: Performed By: #### C BC ####[facility] [address] [place], [place] [address]Dr. Omid Bowden Erythrocyte distribution width (RBC) [Ratio] 14.1 % Normal 11.0-15.0 [facility] Comment on above: Performed By: #### C BC ####[facility] [address] [place], [place] [address]Dr. Omid Bowden Hematocrit (Bld) [Volume fraction] 36.1 % Normal 36.0-48.0 [facility] Comment on above: Performed By: #### C BC ####[facility] [address] [place], [place] [address]Dr. Omid Bowden Hemoglobin (Bld) [Mass/Vol] 11.7 g/dL Critically low 12.0-16.0 [facility] Comment on above: Performed By: #### C BC ####[facility] [address] [place] [address]DrMedardo Bowden IG # 0.08 10e3/ul Critically high 0.00-0.03 [facility] Comment on above: Performed By: #### C BC ####[facility] [address] [place] [address]DrMedardo Bowden IG % 0.5 % Normal 0.0-0.5 [facility] Comment on above: Performed By: #### C BC ####[facility] [address] [place] [address]DrMedardo Bowden LYMPH # 1.2 103/ul Normal 1.2-3.8 [facility] Comment on above: Performed By: #### C BC ####[facility] [address] [place] [address]DrMedardo Bowden Lymphocytes/100 WBC (Bld) 7.5 % Critically low 20.5-60.0 [facility] Comment on above: Performed By: #### C BC ####[facility] [address] [place] [address]DrMedardo Bowden MANUAL DIFF REQ NO Normal [facility] Comment on above: Performed By: #### C BC ####[facility] [address] [place] [address]DrMedardo Bowden MCH (RBC) [Entitic mass] 29.2 pg Normal 26.7-34.0 [facility] Comment on above: Performed By: #### C BC ####[facility] [address] [place] [address]DrMedardo Bowden MCHC (RBC) [Mass/Vol] 32.4 g/dL Normal 29.9-35.2 [facility] Comment on above: Performed By: #### C BC ####[facility] [address] [place] [address]DrMedardo Bowden MCV (RBC) [Entitic vol] 90.0 fL Normal 81.0-99.0 [facility] Comment on above: Performed By: #### C BC ####[facility] [address] [place] [address]Dr. Aixamegan Kal MONO # 1.0 103/ul Critically high 0.3-0.[address] [facility] Comment on above: Performed By: #### C BC ####[facility] [address] [place] [address]Dr. Omid Bowden Monocytes/100 WBC (Bld) 6.8 % Normal 1.7-12.0 [facility] Comment on above: Performed By: #### C BC ####[facility] [address] [place] [address]Dr. Aixamegan Kal NEUT # 12.5 103/ul Critically high 1.4-6.5 [facility] Comment on above: Performed By: #### C BC ####[facility] [address] [place] [address]Dr. Omid Bowden Neutrophils/100 WBC (Bld) 81.7 % Critically high 43.0-75.0 [facility] Comment on above: Performed By: #### C BC ####[facility] [address] [place], [place] [address]Dr. Omid Bowden Platelet mean volume (Bld) [Entitic vol] 8.9 fL Critically low 9.5-13.5 [facility] Comment on above: Performed By: #### C BC ####[facility] [address] [place] [address]Dr. Omid Bowden PLT 252 103/ul Normal 150-450 [facility] Comment on above: Performed By: #### C BC ####[facility] [address] [place] [address]Dr. Omid Bowden RBC 4.01 106/ul Critically low 4.20-5.[address] [facility] Comment on above: Performed By: #### C BC ####[facility] [address] [place] [address]Dr. Omid Bowden WBC 15.3 103/ul Critically high 4.0-11.0 [facility] Comment on above: Performed By: #### C BC ####[facility] [address] [place], [place] [address]NmDr. Omid Bowden IRONon 08-19-2022 Iron [Mass/Vol] 59.0 ug/dL Normal 50.0-170.0 [facility] Comment on above: Performed By: #### H GB #### [facility] [address] [place], [place] [address] Dr. Omid Bowden MAMMO POST BIOPSY RIGHTon MAMMO POST BIOPSY RIGHT Patient: HARMAN MCLEOD Exam Date: 08/19/2022 : 1940 Gender:F Ordering : DR MATEUS PERRY . Admission #: [id number] Family : Order #: [id number] CLICK HERE TO VIEW EXAM This report [...] MD on 09/06/2022 at 09:57 Normal [facility] PROTIMEon 08-19-2022 INR Coag (PPP) [Relative time] 0.99 {INR} Normal [facility] Comment on above: Performed By: #### P T, PTT ####[facility] [address] [place], [place] [address]DeDr. Omid Bowden INR GUIDELINES SEE BELOW Normal [facility] Comment on above: Result Comment: PERLITA RED INR: 2.0 - 3.0 CONDITIONS NOT LISTED BELOW 2.5 - 3.5 FOR PROSTHETIC HEART VALVE REPLACEMENT 2.5 - 3.5 RECURRENT THROMBOSIS Performed By: #### P T, PTT ####[facility] [address] [place], [place] [address]Wn. Omid Bowden PT Coag (PPP) [Time] 10.7 s Normal 9.0-11.6 [facility] Comment on above: Performed By: #### P T, PTT ####[facility] [address] [place], [place] [address]Im. Omid Bowden PTTon 08-19-2022 aPTT Coag (Bld) [Time] 26.0 s Normal 22.3-36.2 [facility] Comment on above: Performed By: #### P T, PTT ####[facility] [address] [place], [place] [address]Hl. Omid Bowden US VAC ASST BX BRST RT W CLI Jose Maria 08-19-2022 US VAC ASST BX BRST RT W CLIP Patient: HARMAN MCLEOD Exam Date: 08/19/2022 : 1940 Gender:F Ordering : DR MATEUS PERRY . Admission #: [id number] Family : Order #: [id number] CLICK HERE TO VIEW EXAM This report [...] on 09/06/2022 at 09:55 Approved by: Judson Baumna MD on 09/06/2022 at 09:55 Normal [facility] CULTURE URINEon 08-16-2022 CULTURE URINE Isolate 1 [...] R F Nitrofurantoin <=16 S F Normal [facility] Comment on above: Performed By: #### U RCX ####[facility] [address] [place] [address]Dr. Omid Bowden CARDIAC ADILIA ADMITon 022 CK [Catalytic activity/Vol] 128 U/L Normal 26-192 [facility] Comment on above: Performed By: #### L IPID, BMP #### [facility] [address] [address] [address] Omid Bowden CK.MB [Mass/Vol] 2.88 ng/mL Normal <=3.60 [facility] Comment on above: Performed By: #### L IPID, BMP #### [facility] [address] [address] [address] Omid Bowden HSTROP 24.1 pg/mL Normal 4.0-51.3 [facility] Comment on above: Result Comment: CUT- OFF POINTS HAVE BEEN ESTABLISHED BASED ON THE FOURTH UNIVERSAL DEFINITIONS OF MYOCARDIAL INFARCTION. THE UPPER REFERENCE LIMIT (URL) OF TROPONIN, DEFINED THE 99TH PERCENTILE OF cTnI DISTRIBUTION IN A REFERENCE POPULATION, HAS BEEN CONFIRMED THE DECISION THRESHOLD FOR ME DIAGNOSIS. Performed By: #### L IPID, BMP #### [facility] [address] [address] [address] Omid Bowden JACINTA 61 ng/mL Normal 9-82 [facility] Comment on above: Performed By: #### L IPID, BMP #### [facility] [address] [place] [address] [address] Omid Bowden CBC AUTO DIFFon 08-14-2022 BASO # 0.0 103/ul Normal 0.0-0.1 [facility] Comment on above: Performed By: #### H GB #### [facility] [address] [address] [address] Omid Bowden Basophils/100 WBC (Bld) 0.4 % Normal 0.2-2.0 [facility] Comment on above: Performed By: #### H GB #### [facility] [address] [address] [address] Omid Bowden EO # 0.3 103/ul Normal 0.0-0.7 [facility] Comment on above: Performed By: #### H GB #### [facility] [address] [address] [address] Omid Bowden Eosinophils/100 WBC (Bld) 2.6 % Normal 0.9-7.0 [facility] Comment on above: Performed By: #### H GB #### [facility] [address] [address] [address] Omid Bowden Erythrocyte distribution width (RBC) [Ratio] 14.1 % Normal 11.0-15.0 [facility] Comment on above: Performed By: #### H GB #### [facility] [address] [address] [address] Omid Bowden Hematocrit (Bld) [Volume fraction] 35.5 % Critically low 36.0-48.0 [facility] Comment on above: Performed By: #### H GB #### [facility] [address] [address] [address] Omid Bowden Hemoglobin (Bld) [Mass/Vol] 11.6 g/dL Critically low 12.0-16.0 [facility] Comment on above: Performed By: #### H GB #### [facility] [address] [address] [address] Omid Bowden IG # 0.06 10e3/ul Critically high 0.00-0.03 [facility] Comment on above: Performed By: #### H GB #### [facility] [address] [address] [address] Omid Bowden IG % 0.6 % Critically high 0.0-0.5 [facility] Comment on above: Performed By: #### H GB #### [facility] [address] [address] [address] Omid Bowden LYMPH # 3.4 103/ul Normal 1.2-3.8 [facility] Comment on above: Performed By: #### H GB #### [facility] [address] [place] [address] Dr. Omid Bowden Lymphocytes/100 WBC (Bld) 35.5 % Normal 20.5-60.0 [facility] Comment on above: Performed By: #### H GB #### [facility] [address] [address] [address] Omid Bowden MANUAL DIFF REQ NO Normal [facility] Comment on above: Performed By: #### H GB #### [facility] [address] [place] [address] Dr. Omid Bowden MCH (RBC) [Entitic mass] 29.5 pg Normal 26.7-34.0 [facility] Comment on above: Performed By: #### H GB #### [facility] [address] [address] [address] Omid Bowden MCHC (RBC) [Mass/Vol] 32.7 g/dL Normal 29.9-35.2 [facility] Comment on above: Performed By: #### H GB #### [facility] [address] [address] [address] Omid Bowden MCV (RBC) [Entitic vol] 90.3 fL Normal 81.0-99.0 [facility] Comment on above: Performed By: #### H GB #### [facility] [address] [address] [address] Omid Bowden MONO # 1.0 103/ul Critically high 0.3-0.[address] [facility] Comment on above: Performed By: #### H GB #### [facility] [address] [address] [address] Omid Bowden Monocytes/100 WBC (Bld) 10.5 % Normal 1.7-12.0 [facility] Comment on above: Performed By: #### H GB #### [facility] [address] [address] [address] Omid Bowden NEUT # 4.8 103/ul Normal 1.4-6.5 [facility] Comment on above: Performed By: #### H GB #### [facility] [address] [place] [address] Dr. Omid Bowden Neutrophils/100 WBC (Bld) 50.4 % Normal 43.0-75.0 [facility] Comment on above: Performed By: #### H GB #### [facility] [address] [address] [address] Omid Bowden Platelet mean volume (Bld) [Entitic vol] 9.1 fL Critically low 9.5-13.5 [facility] Comment on above: Performed By: #### H GB #### [facility] [address] [address] [address] Omid Bowden PLT 276 103/ul Normal 150-450 [facility] Comment on above: Performed By: #### H GB #### [facility] [address] [address] [address] Omid Bowden RBC 3.93 106/ul Critically low 4.20-5.[address] [facility] Comment on above: Performed By: #### H GB #### [facility] [address] [address] [address] Omid Bowden WBC 9.5 103/ul Normal 4.0-11.0 [facility] Comment on above: Performed By: #### H GB #### [facility] [address] [address] [address] Omid Bowden ER URINE PROFILEon 2 Bilirubin Ql (U) Negative Normal NEGATIVE [facility] Comment on above: Performed By: #### U MICRO, ERUR ####[facility] [address] [address]Dr. Omid Bowden Clarity (U) CLEAR Normal CLEAR [facility] Comment on above: Performed By: #### U MICRO, ERUR ####[facility] [address] [place], [place] [address]Dr. Omid Bowden Color (U) LT. YELLOW Normal YELLOW [facility] Comment on above: Performed By: #### U MICRO, ERUR ####[facility] [address] [place], [place] [address]Dr. Omid Bowden ERUAHD A micrscopic examination will be performed if indicated. Normal [facility] Comment on above: Performed By: #### U MICRO, ERUR ####[facility] [address] [place], [place] [address]Dr. Omid Bowden Glucose Ql (U) Negative Normal NEGATIVE [facility] Comment on above: Performed By: #### U MICRO, ERUR ####[facility] [address] [place], [place] [address]Dr. Omid Bowden Hemoglobin Ql (U) Negative Normal NEGATIVE [facility] Comment on above: Performed By: #### U MICRO, ERUR ####[facility] [address] [place], [place] [address]Dr. Omid Bowden Ketones Ql (U) Negative Normal NEGATIVE [facility] Comment on above: Performed By: #### U MICRO, ERUR ####[facility] [address] [place], [place] [address]Dr. Omid Bowden LEUKOCYTES TRACE Abnormal NEGATIVE The [facility] Comment on above: Performed By: #### U MICRO, ERUR ####[facility] [address] [place], [place] [address]Dr. Omid Bowden Nitrite Ql (U) Negative Normal NEGATIVE [facility] Comment on above: Performed By: #### U MICRO, ERUR ####[facility] [address] [address]Dr. Omid Bowden pH (U) 6.0 [pH] Normal 5-9 [facility] Comment on above: Performed By: #### U MICRO, ERUR ####[facility] [address] [address]Dr. Omid Bowden SPEC GRAVITY 1.020 Normal 1.005-<=1.0 25 [facility] Comment on above: Performed By: #### U MICRO, ERUR ####[facility] [address] [address]Dr. Omid Bowden UA PROTEIN Negative Normal NEGATIVE/ TRACE [facility] Comment on above: Performed By: #### U MICRO, ERUR ####[facility] [address] [address]Dr. Omid Bowden UR MICRO IND INDICATED Normal [facility] Comment on above: Performed By: #### U MICRO, ERUR ####[facility] [address] [address]Dr. Omid Bowden Urobilinogen Qn (U) 0.2 {Jose'U}/dL Normal 0.2 - 1. 0 [facility] Comment on above: Performed By: #### U MICRO, ERUR ####[facility] [address] [place], [place] [address]Dr. Omid Bowden OCC BLD IMMUNO SCREENon OCCULT BLOOD Negative Normal NEGATIVE [facility] Comment on above: Performed By: #### O BSCRN #### [facility] [address] [place] [address] Dr. Omid Bowden PROF CHEM 8 (BAS METB)on Anion gap [Moles/Vol] 5.5 mmol/L Normal [facility] Comment on above: Performed By: #### L IPID, BMP #### [facility] [address] [place] [address] Dr. Omid Bowden Calcium [Mass/Vol] 8.6 mg/dL Normal 8.5-10.1 [facility] Comment on above: Performed By: #### L IPID, BMP #### [facility] [address] [address] [address] Omid Bowden Chloride [Moles/Vol] 103 mmol/L Normal 98-107 [facility] Comment on above: Performed By: #### L IPID, BMP #### [facility] [address] [address] [address] Omid Bowden CO2 [Moles/Vol] 31.8 mmol/L Normal 21.0-32.0 [facility] Comment on above: Performed By: #### L IPID, BMP #### [facility] [address] [address] [address] Omid Bowden Creatinine [Mass/Vol] 0.99 mg/dL Normal 0.55-1.02 [facility] Comment on above: Performed By: #### L IPID, BMP #### [facility] [address] [address] [address] Omid Bowden EGFR-AF CUBAN >60 Normal >=60 [facility] Comment on above: Performed By: #### L IPID, BMP #### [facility] [address] [address] [address] Omid Bowden EGFR-NON AF CUBAN 54 mL/min/1.73m2 Critically low >=60 [facility] Comment on above: Performed By: #### L IPID, BMP #### [facility] [address] [address] [address] Omid Bowden Glucose [Mass/Vol] 112 mg/dL Critically high 74-106 [facility] Comment on above: Performed By: #### L IPID, BMP #### [facility] [address] [address] [address] Omid Bowden Potassium [Moles/Vol] 3.3 mmol/L Critically low 3.5-5.1 [facility] Comment on above: Performed By: #### L IPID, BMP #### [facility] [address] [address] [address] Omid Bowden Sodium [Moles/Vol] 137 mmol/L Normal 136-145 [facility] Comment on above: Performed By: #### L IPID, BMP #### [facility] [address] [address] [address] Omid Bowden Urea nitrogen [Mass/Vol] 20.0 mg/dL Critically high 7.0-18.0 [facility] Comment on above: Performed By: #### L IPID, BMP #### [facility] [address] [address] [address] Omid Bowden Urea nitrogen/Creatinine [Mass ratio] 20.2 mg/mg Normal [facility] Comment on above: Performed By: #### L IPID, BMP #### [facility] [address] [address] [address] Omid Bowden URINE MICROSCOPIC ONLYon BACTERIA TRACE Abnormal NONE SEEN [facility] Comment on above: Performed By: #### U MICRO, ERUR ####[facility] [address] [address]Dr. Omid Bowden Bacteria identified Cx Nom (U) INDICATED Normal [facility] Comment on above: Performed By: #### U MICRO, ERUR ####[facility] [address] [address]DrMedardo Bowden CAST NONE SEEN Normal NONE SEEN [facility] Comment on above: Performed By: #### U MICRO, ERUR ####[facility] [address] [address]Dr. Omid Bowden Crystals LM Nom (Urine sed) NONE SEEN Normal NONE SEEN [facility] Comment on above: Performed By: #### U MICRO, ERUR ####[facility] [address] [address]Dr. Omid Bowden Epithelial cells LM Ql (Urine sed) FEW Abnormal NONE SEEN /RARE [facility] Comment on above: Performed By: #### U MICRO, ERUR ####[facility] [address] [address]DrMedardo Bowden MUCOUS NONE SEEN Normal NONE SEEN [facility] Comment on above: Performed By: #### U MICRO, ERUR ####[facility] [address] [place], [place] [address]Sc. Omid Bowden RBC 0-2 Normal 0-2 [facility] Comment on above: Performed By: #### U MICRO, ERUR ####[facility] [address] [place], [place] [address]Cf. Omid Bowden WBC 20-50 Abnormal NONE SEEN [facility] Comment on above: Performed By: #### U MICRO, ERUR ####[facility] [address] [place], [place] [address]Go. Omid Bowden XR CHEST 1 Von 08-14-2022 [...] HILL BAILON Date: 2022-08-14 00:46 Normal [facility] Covid-19 PCR (CVDTBH)on SARS-CoV-2 (COVID-19) RNA MARII+probe Ql (Unsp spec) Not detected Normal NOT DETECTED [facility] Comment on above: Result Comment: When diagnostic [...] for this test is supported by the [place] of [employer] and Human Service's declaration that [...] used). Performed By: #### C VDTBH #### [facility] [address] [address] [address] Omid Bowden MG MAMM RT DIAG FUon 022 MG MAMM RT DIAG FU Patient: HARMAN MCLEOD Exam Date: 08/08/2022 : 1940 Gender:F Ordering : DR MATEUS PERRY . Admission #: [id number] Family : Order #: [id number] CLICK HERE TO VIEW EXAM RADIOLOGY REPORT [...] uterine cancer at age 39. LOCATION: The [facility] BREAST COMPOSITION: Scattered areas fibroglandular density. FINDINGS: [...] M.D. on 08/08/2022 at 15:28 Normal [facility] PROF CHEM 8 (BAS METB)on Anion gap [Moles/Vol] 9.3 mmol/L Normal [facility] Comment on above: Performed By: #### B MP #### [facility] [address] [address] [address] Omid Bowden Calcium [Mass/Vol] 8.1 mg/dL Critically low 8.5-10.1 [facility] Comment on above: Performed By: #### B MP #### [facility] [address] [address] [address] Omid Bowden Chloride [Moles/Vol] 100 mmol/L Normal 98-107 [facility] Comment on above: Performed By: #### B MP #### [facility] [address] [address] [address] Omid Bowden CO2 [Moles/Vol] 31.9 mmol/L Normal 21.0-32.0 [facility] Comment on above: Performed By: #### B MP #### [facility] [address] [address] [address] Omid Bowden Creatinine [Mass/Vol] 1.25 mg/dL Critically high 0.55-1.02 [facility] Comment on above: Performed By: #### B MP #### [facility] [address] [address] [address] Omid Bowden EGFR-AF CUBAN 50 mL/min/1.73m2 Critically low >=60 [facility] Comment on above: Performed By: #### B MP #### [facility] [address] [address] [address] Omid Bowden EGFR-NON AF CUBAN 41 mL/min/1.73m2 Critically low >=60 [facility] Comment on above: Performed By: #### B MP #### [facility] [address] [address] [address] Omid Bowden Glucose [Mass/Vol] 215 mg/dL Critically high 74-106 [facility] Comment on above: Performed By: #### B MP #### [facility] [address] [address] [address] Omid Bowden Potassium [Moles/Vol] 3.2 mmol/L Critically low 3.5-5.1 [facility] Comment on above: Performed By: #### B MP #### [facility] [address] [place], [place] [address] Dr. Omid Bowden Sodium [Moles/Vol] 138 mmol/L Normal 136-145 [facility] Comment on above: Performed By: #### B MP #### [facility] [address] [place], [place] [address] Dr. Omid Bowden Urea nitrogen [Mass/Vol] 32.0 mg/dL Critically high 7.0-18.0 [facility] Comment on above: Performed By: #### B MP #### [facility] [address] [place], [place] [address] Dr. Omid Bowden Urea nitrogen/Creatinine [Mass ratio] 25.6 mg/mg Normal [facility] Comment on above: Performed By: #### B MP #### [facility] [address] [place], [place] [address] Dr. Omid Bowden US BREAST RIGHT LIMITEDon US BREAST RIGHT LIMITED Patient: HARMAN MCLEOD Exam Date: 08/08/2022 : 1940 Gender:F Ordering : DR MATEUS PERRY . Admission #: [id number] Family : Order #: [id number] CLICK HERE TO VIEW EXAM RADIOLOGY REPORT [...] uterine cancer at age 39. LOCATION: The [facility] BREAST COMPOSITION: Scattered areas fibroglandular density. FINDINGS: [...] George M.D. on 08/08/2022 at 15:28 Normal [facility] CALCIUMon 08-02-2022 Calcium [Mass/Vol] 8.9 mg/dL Normal 8.5-10.1 [facility] Comment on above: Performed By: #### H GB #### [facility] [address] [address] [address] Omid Bowden CREATININEon 08-02-2022 Creatinine [Mass/Vol] 1.19 mg/dL Critically high 0.55-1.02 [facility] Comment on above: Performed By: #### H GB #### [facility] [address] [address] [address] Omid Bowden EGFR-AF CUBAN 53 mL/min/1.73m2 Critically low >=60 [facility] Comment on above: Performed By: #### H GB #### [facility] [address] [address] [address] Omid Bowden EGFR-NON AF CUBAN 44 mL/min/1.73m2 Critically low >=60 [facility] Comment on above: Performed By: #### H GB #### [facility] [address] [address] [address] Omid Bowden MG MAMM SCREEN 3D DAVID CADon 07-19-2022 MG MAMM SCREEN 3D DAVID CAD Patient: HARMAN MCLEOD Exam Date: 07/19/2022 : 1940 Gender:F Ordering : DR MATEUS PERRY . Admission #: [id number] Family : Order #: [id number] CLICK HERE TO VIEW EXAM RADIOLOGY REPORT [...] uterine cancer at age 39. LOCATION: [facility] BREAST COMPOSITION: Scattered areas fibroglandular density. FINDINGS: [...] Bauman MD on 07/20/2022 at 07:33 Normal [facility] XR DEXA BONE DENSITYon 07-19 XR DEXA [...] by: JUDSON BAUMAN Date: 2022-07-19 20:17 Normal [facility] CALCIUM, IONIC (POC)on 06-28 POC Ionized Calcium 1.21 mmol/L 1.15 - 1 .33 mmol/L [employer] CHLORIDE (POC)on 06-28-2022 Chloride [Moles/Vol] 103 mmol/L 98 - 10 7 mmol/L [facility] Creatinine W/GFR Point of Ca reon 06-28-2022 Creatinine [Mass/Vol] 0.93 mg/dL 0.51 - 1.19 mg/dL [facility] eGFR, POC mL/min/1.73 m2 [facility] Comment on above: Effective Jun 13, 2022 [...] 1.56 mmol/L High 0.56 - 1.39 mmol/L [facility] No Panel Informationon 06-28 Interpretation and review of laboratory results Abnormal [facility] POC Glucose Fingerstickon Glucose [Mass/Vol] 135 mg/dL High 65 - 105 mg/dL [facility] Interpretation and review of laboratory results Abnormal [facility] POCT Glucoseon 06-28-2022 Glucose [Mass/Vol] 147 mg/dL High 74 - 100 mg/dL [facility] POCT urea (BUN)on 06-28-2022 Urea nitrogen [Mass/Vol] 20 mg/dL 8 - 26 mg/dL [facility] POTASSIUM (POC)on 06-28-2022 Potassium [Moles/Vol] 3.7 mmol/L 3.5 - 4.5 mmol/L [facility] SODIUM (POC)on 06-28-2022 Sodium [Moles/Vol] 141 mmol/L 138 - 146 mmol/L [facility] PROF CHEM 8 (BAS METB)on Anion gap [Moles/Vol] 9.0 mmol/L Normal [facility] Comment on above: Performed By: #### B MP ####[facility] [address] [place], [place] [address]UsMedardo Bowden Calcium [Mass/Vol] 9.0 mg/dL Normal 8.5-10.1 [facility] Comment on above: Performed By: #### B MP ####[facility] [address] [address]Dr. Omid Kal Chloride [Moles/Vol] 98 mmol/L Normal 98-107 [facility] Comment on above: Performed By: #### B MP ####[facility] [address] [id number]. Aixamegan Kal CO2 [Moles/Vol] 33.2 mmol/L Critically high 21.0-32.0 [facility] Comment on above: Performed By: #### B MP ####[facility] [address] [address]Dr. Omid Kal Creatinine [Mass/Vol] 1.32 mg/dL Critically high 0.55-1.02 [facility] Comment on above: Performed By: #### B MP ####[facility] [address] [place], [place] [address]Dr. Omid Bowden EGFR-AF CUBAN 47 mL/min/1.73m2 Critically low >=60 [facility] Comment on above: Performed By: #### B MP ####[facility] [address] [place], [place] [address]Dr. Omid Bowden EGFR-NON AF CUBAN 39 mL/min/1.73m2 Critically low >=60 [facility] Comment on above: Performed By: #### B MP ####[facility] [address] [address]Dr. Omid Bowden Glucose [Mass/Vol] 220 mg/dL Critically high 74-106 [facility] Comment on above: Performed By: #### B MP ####[facility] [address] [address]Dr. Omid Bowden Potassium [Moles/Vol] 3.2 mmol/L Critically low 3.5-5.1 [facility] Comment on above: Performed By: #### B MP ####[facility] [address] [address]Dr. Omid Bowden Sodium [Moles/Vol] 137 mmol/L Normal 136-145 [facility] Comment on above: Performed By: #### B MP ####[facility] [address] [place], [place] [address]Tt. Omid Bowden Urea nitrogen [Mass/Vol] 31.0 mg/dL Critically high 7.0-18.0 [facility] Comment on above: Performed By: #### B MP ####[facility] [address] [place], [place] [address]Is. Omid Bowden Urea nitrogen/Creatinine [Mass ratio] 23.5 mg/mg Normal [facility] Comment on above: Performed By: #### B MP ####[facility] [address] [place], [place] [address]St. Omid Bowden ECHOCARDIO M/2D COMPLETEon 0 04-12-2022 ECHOCARDIO M/2D COMPLETE Patient: HARMAN MCLEOD Exam Date: 04/12/2022 : 1940 Gender:F Ordering : SONALI [facility] Admission #: [id number] Family : Order #: [id number] CLICK HERE TO VIEW EXAM ECHOCARDIOGRAM REPORT [...] Keyes M.D. on 04/12/2022 at 19:15 Normal [facility] PROF CHEM 8 (BAS METB)on Anion gap [Moles/Vol] 12.4 mmol/L Normal [facility] Comment on above: Performed By: #### B MP ####[facility] [address] [address]Dr. Omid Bowden Calcium [Mass/Vol] 9.1 mg/dL Normal 8.5-10.1 [facility] Comment on above: Performed By: #### B MP ####[facility] [address] [address]Dr. Omid Bowden Chloride [Moles/Vol] 100 mmol/L Normal 98-107 [facility] Comment on above: Performed By: #### B MP ####[facility] [address] [address]Dr. Omid Bowden CO2 [Moles/Vol] 33.0 mmol/L Critically high 21.0-32.0 [facility] Comment on above: Performed By: #### B MP ####[facility] [address] [address]Dr. Omid Bowden Creatinine [Mass/Vol] 1.15 mg/dL Critically high 0.55-1.02 [facility] Comment on above: Performed By: #### B MP ####[facility] [address] [address]Dr. Omid Bowden EGFR-AF CUBAN 55 mL/min/1.73m2 Critically low >=60 [facility] Comment on above: Performed By: #### B MP ####[facility] [address] [place] [address]Dr. Omid Bowden EGFR-NON AF CUBAN 46 mL/min/1.73m2 Critically low >=60 [facility] Comment on above: Performed By: #### B MP ####[facility] [address] [address]Dr. Omid Bowden Glucose [Mass/Vol] 167 mg/dL Critically high 74-106 [facility] Comment on above: Performed By: #### B MP ####[facility] [address] [id number]. Omid Bowden Potassium [Moles/Vol] 3.4 mmol/L Critically low 3.5-5.1 [facility] Comment on above: Performed By: #### B MP ####[facility] [facility] [id number] [place] [id number]. Omid Bowden Sodium [Moles/Vol] 142 mmol/L Normal 136-145 [facility] Comment on above: Performed By: #### B MP ####[facility] [id number] [place] [id number]. Omid Bowden Urea nitrogen [Mass/Vol] 23.0 mg/dL Critically high 7.0-18.0 [facility] Comment on above: Performed By: #### B MP ####[facility] [address] [place] [id number]. Aixamegan Kal Urea nitrogen/Creatinine [Mass ratio] 20.0 mg/mg Normal [facility] Comment on above: Performed By: #### B MP ####[facility] [address] [place], [place] [id number]. Omid Bowden SYMPTOMATIC COVID-19 ANTIGEN on 03-16-2022 EUA Statement SEE BELOW Normal [facility] Comment on above: Result Comment: This [...] Performed By: #### L IPID, BMP #### [facility] [address] [place] [address] Dr. Omid Bowden SARS-CoV-2 (COVID-19) RNA MARII+probe Ql (Unsp spec) Positive Critically abnormal NEGATIVE [facility] Comment on above: Performed By: #### L IPID, BMP #### [facility] [address] [place] [address] Dr. Omid Bowden HEMOGLOBINon 03-15-2022 Hemoglobin (Bld) [Mass/Vol] 12.3 g/dL Normal 12.0-16.0 [facility] Comment on above: Performed By: #### H GB #### [facility] [address] [place] [address] Dr. Omid Bowden BNPon 02-15-2022 Natriuretic peptide B (Bld) [Mass/Vol] 598.0 pg/mL Normal <=1,800.0 [facility] Comment on above: Performed By: #### L IPID, BMP #### [facility] [address] [place] [address] Dr. Omid Bowden PROF CHEM 8 (BAS METB)on Anion gap [Moles/Vol] 11.9 mmol/L Normal [facility] Comment on above: Performed By: #### L IPID, BMP #### [facility] [address] [place] [address] Dr. Omid Bowden Calcium [Mass/Vol] 9.1 mg/dL Normal 8.5-10.1 [facility] Comment on above: Performed By: #### L IPID, BMP #### [facility] [address] [place] [address] Dr. Omid Bowden Chloride [Moles/Vol] 98 mmol/L Normal 98-107 [facility] Comment on above: Performed By: #### L IPID, BMP #### [facility] [address] [place] [address] Dr. Omid Bowden CO2 [Moles/Vol] 33.2 mmol/L Critically high 21.0-32.0 [facility] Comment on above: Performed By: #### L IPID, BMP #### [facility] [address] [place] [address] Dr. Omid Bowden Creatinine [Mass/Vol] 1.28 mg/dL Critically high 0.55-1.02 [facility] Comment on above: Performed By: #### L IPID, BMP #### [facility] [address] [place] [address] Dr. Omid Bowden EGFR-AF CUBAN 49 mL/min/1.73m2 Critically low >=60 [facility] Comment on above: Performed By: #### L IPID, BMP #### [facility] [address] [place] [address] Dr. Omid Bowden EGFR-NON AF CUBAN 40 mL/min/1.73m2 Critically low >=60 [facility] Comment on above: Performed By: #### L IPID, BMP #### [facility] [address] [place] [address] Dr. Omid Bowden Glucose [Mass/Vol] 182 mg/dL Critically high 74-106 [facility] Comment on above: Performed By: #### L IPID, BMP #### [facility] [address] [place] [address] Dr. Omid Bowden Potassium [Moles/Vol] 3.1 mmol/L Critically low 3.5-5.1 [facility] Comment on above: Performed By: #### L IPID, BMP #### [facility] [address] [place] [address] Dr. Omid Bowden Sodium [Moles/Vol] 140 mmol/L Normal 136-145 [facility] Comment on above: Performed By: #### L IPID, BMP #### [facility] [address] [address] [address] Omid Bowden Urea nitrogen [Mass/Vol] 30.0 mg/dL Critically high 7.0-18.0 [facility] Comment on above: Performed By: #### L AMBER HARDING #### [facility] [address] [place], [place] [address] Dr. Omid Bowden Urea nitrogen/Creatinine [Mass ratio] 23.4 mg/mg Normal [facility] Comment on above: Performed By: #### L MEHDI BMP #### [facility] [address] [place], [place] [address] Dr. Omid Bowden XR CHEST 2 Von [...] ALFONSO GEORGE Date: 2022-02-09 11:53 Normal [facility] No Panel Informationon 12-13 [employer] POCT Glucoseon 12-13-2021 Glucose [Mass/Vol] 196 mg/dL High 74 - 100 mg/dL [facility] Interpretation and review of laboratory results Abnormal [employer] POTASSIUM (POC)on 12-13-2021 Potassium [Moles/Vol] 3.7 mmol/L 3.5 - 4.5 mmol/L [facility] TYPE AND SCREENon 12-10-2021 ABO/Rh Positive [employer] Arm Band Number BE [id number] [facility] Expiration Date 12/16/2021,2359 [facility] EKG 12 leadOrdered By: Dennis Garcia on 12-07-2021 Atrial Rate 66 BPM [employer] Work Phone: P Chester 67 degrees [employer] Work Phone: P-R Interval 126 ms [facility] Work Phone: Q-T Interval 466 ms [facility] Work Phone: QRS Duration 150 ms [facility] Work Phone: QTc Calculation (Bazett) 488 ms [facility] Work Phone: R Chester 32 degrees [facility] Work Phone: T Chester 161 degrees [facility] Work Phone: Ventricular Rate 66 BPM [facility] [employer] [facility] Work Phone: [facility] Work Phone: EKG 12 leadon 12-07-2021 [...] wave inversion now evident in Inferior leads [facility] [employer] Work Phone: CBC auto differentialon 11-10 Absolute Eos # 0.13 [facility] th Absolute Immature Granulocyte 0.12 [facility] [employer] Absolute Lymph # 3.18 [facility] Cooke # 1.22 High [facility] lt Basophils (Bld) [#/Vol] 0.05 10*3/uL [facility] Basophils/100 WBC (Bld) 0 % 0 - 2 % [employer] Eosinophils/100 WBC (Bld) 1 % 1 - 4 % [employer] Hematocrit (Bld) [Volume fraction] 38.4 % 36.3 - 47.1 % [employer] Hemoglobin.gastrointes tinal spec 1 Ql (Stl) 12.2 g/dL 11.9 - 15.1 g/dL [facility] Immature granulocytes/100 WBC (Bld) 1 % High 0 [facility] [employer] Interpretation and review of laboratory results Abnormal [facility] Lymphocytes/100 WBC (Bld) 25 % 24 - 43 % [employer] MCH (RBC) [Entitic mass] 29.9 pg 25.2 - 33.5 pg [facility] MCHC (RBC) [Mass/Vol] 31.8 g/dL 28.4 - 34.8 g/dL [facility] MCV (RBC) [Entitic vol] 94.1 fL 82.6 - 102.9 fL [facility] Monocytes/100 WBC (Bld) 10 % 3 - 12 % [facility] NRBC Automated 0.0 0.0 per 100 WBC [facility] Platelet distribution width (Bld) [Ratio] 14.5 % High 11.8 - 14.4 % [facility] Platelet mean volume (Bld) [Entitic vol] 10.1 fL 8.1 - 13.5 fL [facility] Platelets (Bld) [#/Vol] 266 10*3/uL [facility] RBC (Bld) [#/Vol] 4.08 10*6/uL 3.95 - 5.1 1 m/uL [facility] RBC (Bld) [#/Vol] ANISOCYTOSIS PRESENT [facility] Segmented neutrophils/100 WBC (Bld) 63 % 36 - 65 % [facility] Segs [facility] 7.88 [facility] W[facility] (Bld) [#/Vol] 12.6 10*3/uL High [facility] Comprehensive Metabolic Pane l w/ Reflex to MGon 12-06-2021 Albumin [Mass/Vol] 3.7 g/dL 3.5 - 5.2 g/dL [facility] Albumin/Globulin [Mass ratio] 1.1 {ratio} [facility] ALP (Bld) [Catalytic activity/Vol] 93 U/L 35 - 104 U/L [facility] ALT [Catalytic activity/Vol] 12 U/L 5 - 33 U/L [facility] Anion gap [Moles/Vol] 14 mmol/L 9 - 17 mmol/L [facility] AST [Catalytic activity/Vol] 12 U/L <32 [facility] Bilirubin [Mass/Vol] 0.25 mg/dL Low 0.3 - 1 .2 mg/dL [facility] Calcium [Mass/Vol] 9.1 mg/dL 8.6 - 10. 4 mg/dL [facility] Chloride [Moles/Vol] 95 mmol/L Low 98 - 10 7 mmol/L [facility] CO2 [Moles/Vol] 30 mmol/L 20 - 31 mmol/L [facility] Creatinine [Mass/Vol] 1.07 mg/dL High 0.50 - 0.90 mg/dL [facility] Free PSA/Total PSA [Mass fraction] 7.2 g/dL 6.4 - 8.3 g/dL [facility] GFR 60 mL/min Low >60 [facility] GFR Non- 49 mL/min Low >60 [facility] GFR/1.73 sq M.predicted MDRD (S/P/Bld) [Vol rate/Area] [facility] Comment on above: Average GFR for 70 o r more years old: 75 mL/min/1.73sq m Chronic Kidney Disease: <60 mL/min/1.73sq m Kidney failure: <15 mL/min/1.73sq m eGFR calculated using average adult body mass. Additional eGFR calculator available at: http://www.[facility]/multiple_crcl_2012.htm Glucose [Mass/Vol] 188 mg/dL High 70 - 99 mg/dL [facility] Interpretation and review of laboratory results Abnormal [facility] Potassium [Moles/Vol] 3.3 mmol/L Low 3.7 - 5.3 mmol/L [facility] Sodium [Moles/Vol] 139 mmol/L 135 - 144 mmol/L [facility] Urea nitrogen (BldV) [Mass/Vol] 22 mg/dL 8 - 23 mg/dL [facility] Magnesiumon 12-06-2021 Magnesium [Mass/Vol] 1.6 mg/dL 1.6 - 2 .6 mg/dL [facility] No Panel Informationon 12-06 No acute process. [facility] RIS CONSOLIDATED EXAMINATION: TWO XRAY VIEWS OF [...] The osseous structures are without acute process. [facility] CONSOLID[facility] Kael Freeman MD - 12/06/2021 EXAMINATION: [...] without acute process. IMPRESSION: No acute process. [place] Phone: Radiology Study observation (narrative) [place] [facility] Phone: No Panel InformationOrdered By: Kael Freeman on 12-06-2021 [facility] Phone: Creatinine W/GFR Point of Ca reOrdered By: Kin Abarca on 06-15-2021 Creatinine [Mass/Vol] 0.89 mg/dL 0.51 - 1.19 mg/dL [facility] Phone: GFR Non- >60 >60 mL/min [facility] Phone: GFR/1.73 sq M.predicted MDRD (S/P/Bld) [Vol rate/Area] mL/min/{1.73_m2} >60 mL/min [facility] Phone: GFR/1.73 sq M.predicted MDRD (S/P/Bld) [Vol rate/Area] [facility] Phone: Comment on above: Average GFR for 70 o r more years old: 75 mL/min/1.73sq m Chronic Kidney Disease: <60 mL/min/1.73sq m Kidney failure: <15 mL/min/1.73sq m eGFR calculated using average adult body mass. Additional eGFR calculator available at: http://www.[employer]/multiple_crcl_2012.htm No Panel InformationOrdered By: Kin Abarca on 06-15-2021 [facility] Phone: POC Glucose FingerstickOrder ed By: Kin Abarca on 06-15-2021 Glucose [Mass/Vol] 163 mg/dL High 65 - 105 mg/dL [facility] Phone: Interpretation and review of laboratory results Abnormal [facility] Phone: [facility] Phone: POCT GlucoseOrdered By: iKn Abarca on 06-15-2021 Glucose [Mass/Vol] 186 mg/dL High 74 - 100 mg/dL [facility] Phone: Interpretation and review of laboratory results Abnormal [facility] Phone: POTASSIUM (POC)Ordered By: Yuriy Abarca on 06-15-2021 Potassium [Moles/Vol] 4.5 mmol/L 3.5 - 4.5 mmol/L [facility] Phone: EKG 12 leadOrdered By: Antoni Burks on 05-13-2021 Atrial Rate 67 BPM [facility] Phone: P Chester 58 degrees [facility] Phone: P-R Interval 130 ms [facility] Phone: Q-T Interval 504 ms [facility] Phone: QRS Duration 144 ms [place] Phone: QTc Calculation (Bazett) 532 ms [facility] Phone: R Chester 20 degrees [place] Phone: T Chester 117 degrees [place] Phone: Ventricular Rate 67 BPM [employer] Phone: Sinus rhythm with Premature atrial complexes Left bundle branch block Abnormal ECG No previous ECGs available [place] Phone: Virgilio, [facility] Incoming E kg Results From [email or web address] - 05/13/2021 1:30 PM EDT Sinus rhythm with Premature atrial complexes Left bundle branch block Abnormal ECG No previous ECGs available [place] Phone: [place] Phone: Basic Metabolic Panel w/ Ref alexis to MGOrdered By: Latonia Burks on 05-12-2021 Anion gap [Moles/Vol] 13 mmol/L 9 - 17 mmol/L [facility] Phone: Calcium [Mass/Vol] 9.4 mg/dL 8.6 - 10. 4 mg/dL [place] [facility] Phone: Chloride [Moles/Vol] 102 mmol/L 98 - 10 7 mmol/L [place] [facility] Phone: CO2 [Moles/Vol] 28 mmol/L 20 - 31 mmol/L [place] [facility] Phone: Creatinine [Mass/Vol] 0.94 mg/dL High 0.50 - 0.90 mg/dL [place] [facility] Phone: GFR >60 >60 mL/min [facility] Phone: GFR Non- 58 mL/min Low >60 [place] Phone: GFR/1.73 sq M.predicted MDRD (S/P/Bld) [Vol rate/Area] [facility] Phone: Comment on above: Average GFR for 70 o r more years old: 75 mL/min/1.73sq m Chronic Kidney Disease: <60 mL/min/1.73sq m Kidney failure: <15 mL/min/1.73sq m eGFR calculated using average adult body mass. Additional eGFR calculator available at: http://www.[employer]/multiple_crcl_2012.htm GFR/1.73 sq M.predicted MDRD (S/P/Bld) [Vol rate/Area] NOT REPORTED [facility] Phone: Glucose [Mass/Vol] 119 mg/dL High 70 - 99 mg/dL [facility] Phone: Interpretation and review of laboratory results Abnormal [facility] Phone: Potassium [Moles/Vol] 4.0 mmol/L 3.7 - 5.3 mmol/L [facility] Phone: Sodium [Moles/Vol] 143 mmol/L 135 - 144 mmol/L [facility] Phone: Urea nitrogen (BldV) [Mass/Vol] 18 mg/dL 8 - 23 mg/dL [facility] Phone: Urea nitrogen/Creatinine (Bld) [Mass ratio] NOT REPORTED [place] [facility] Phone: [place] Phone: CBC auto differentialOrdered By: Latonia Burks on 05-12-2021 Absolute Eos # 0.26 [email or web address] [facility] Work Phone: Absolute Immature Granulocyte 0.04 [employer] Work Phone: Absolute Lymph # 3.26 [email or web address] [facility] Work Phone: Absolute Cooke # 0.84 [email or web address] [facility] Work Phone: Basophils (Bld) [#/Vol] 0.05 10*3/uL [employer] Work Phone: Basophils/100 WBC (Bld) 1 % 0 - 2 % [employer] Work Phone: Differential Type NOT REPORTED [place] Phone: Eosinophils/100 WBC (Bld) 3 % 1 - 4 % [facility] Phone: Hematocrit (Bld) [Volume fraction] 36.9 % 36.3 - 47.1 % [facility] Phone: Hemoglobin.gastrointes tinal spec 1 Ql (Stl) 11.2 g/dL Low 11.9 - 15.1 g/dL [facility] Phone: Immature granulocytes/100 WBC (Bld) 0 % 0 [facility] Phone: Interpretation and review of laboratory results Abnormal [facility] Phone: Lymphocytes/100 WBC (Bld) 32 % 24 - 43 % [facility] Phone: MCH (RBC) [Entitic mass] 28.3 pg 25.2 - 33.5 pg [facility] Phone: MCHC (RBC) [Mass/Vol] 30.4 g/dL 28.4 - 34.8 g/dL [facility] Phone: MCV (RBC) [Entitic vol] 93.2 fL 82.6 - 102.9 fL [facility] Phone: Monocytes/100 WBC (Bld) 8 % 3 - 12 % [facility] Phone: NRBC Automated 0.0 0.0 per 100 WBC [facility] Phone: Platelet distribution width (Bld) [Ratio] 13.8 % 11.8 - 14.4 % [facility] Phone: Platelet Estimate NOT REPORTED [facility] Phone: Platelet mean volume (Bld) [Entitic vol] 9.5 fL 8.1 - 13.5 fL [facility] Phone: Platelets (Bld) [#/Vol] 310 10*3/uL [facility] Phone: RBC (Bld) [#/Vol] 3.96 10*6/uL 3.95 - 5.1 1 m/uL [facility] Phone: RBC (Bld) [#/Vol] NOT REPORTED [facility] Phone: Segmented neutrophils/100 WBC (Bld) 56 % 36 - 65 % [facility] Phone: Segs Absolute 5.70 [employer] Work Phone: WBC (Bld) [#/Vol] 10.2 10*3/uL [facility] Phone: WBC (Bld) [#/Vol] NOT REPORTED [facility] Phone: [place] Phone: XR CHEST (2 VW)Ordered By: Joanie Burks on 05-12-2021 Senescent changes compatible with the age of the patient. No evidence of acute cardiopulmonary process. [facility] Phone: EXAMINATION: TWO XRA Y VIEWS OF [...] spine and visualized portions of the shoulders. [place] Phone: Virgilio, [facility] Incoming Radiant Results From [employer] - 05/12/2021 2:48 PM EDT EXAMINATION: TWO [...] patient. No evidence of acute cardiopulmonary process. [place] Phone: [place] Phone: Cardiovascular Lab Reporton 08-21-2020 Cardiovascular Lab Report [facility] Patient Name: [facility] Slim Coronel MR #: [id number] Department of Physician: Jose Maria Keyes M.D. Division of Service Date: 08/20/2020 Cardiology Birthdate: 1940 Adult Cardiovascular Room #: [facility] [address] [place] [address] Cardiovascular Laboratory Report INDICATION: The patient is [...] signed informed consent. She was brought to labor operator in a fasting state. The procedure was performed under conscious sedation. A transesophageal echocardiogram was performed by Dr. Marisol Khoury at baseline. Please refer to his dictation for details. The appendage measured a maximum of 16 mm in terms of ostial width. Using ultrasound guidance and micropuncture technique, access was obtained in the right common femoral vein and a 6-[place]izen [place] x 11 cm sheath was placed preclosure where the 6-[place]izen [place] ProGlide device was performed followed by advancement [...] was exchanged over that wire to the 14-Citizen [place] Watchman access sheath, which was advanced to the left atrial cavity with no issues. The 6-[place]izen [place] angled pigtail catheter was advanced over the [...] Trans: (more content not included)... Normal The [facility] TYPE AND CROSSMATCHon 2019 ABO INTERPRETATION A Normal [facility] Comment on above: Performed By: #### [id number] #### [facility] [address] [place] [address], [place] RH INTERPRETATION Positive Normal The [facility] Comment on above: Performed By: #### [id number] #### [facility] [address] [place] [address], [place] Vital Signs Date Time Vital Sign Value Performing Clinician Facility 06-20-2023 15:29-0400 Body height 154.9 cm Winnie Kaleigh PA-C Work Phone: [facility] 06-20-2023 15:29-0400 Body temperature 97.39 [degF] Winnie Kaleigh PA-C Work Phone: [facility] 06-20-2023 15:29-0400 Body weight 84.64 kg Winnie Kaleigh PA-C Work Phone: [facility] 06-20-2023 15:29-0400 Diastolic blood pressure 55 mm[Hg] Winnie Kaleigh PA-C Work Phone: [facility] 06-20-2023 15:29-0400 Heart rate 72 /min Winnie Kaleigh PA-C Work Phone: [facility] 06-20-2023 15:29-0400 Respiratory rate 16 /min Winnie Kaleigh PA-C Work Phone: [facility] 06-20-2023 15:29-0400 SaO2% (BldA) [Mass fraction] 96 % Winnie Kaleigh PA-C Work Phone: [facility] 06-20-2023 15:29-0400 Systolic blood pressure 138 mm[Hg] Winnie Guzmán PA-C Work Phone: [facility] 06-01-2023 08:45-0400 Body height 154.94 cm Christiano Gonzales Other [employer] Other 06-01-2023 08:45-0400 Body mass index (BMI) [Ratio] 34.57 kg/m2 Christiano Gonzales Other [employer] Other 06-01-2023 08:45-0400 Body temperature 97.8 [degF] Christiano Gonzales Other [employer] Other 06-01-2023 08:45-0400 Body weight 83.01 kg Christiano Gonzales Other [employer] Other 06-01-2023 08:45-0400 Diastolic blood pressure 72 mm[Hg] Christiano Gonzales Other [employer] Other 06-01-2023 08:45-0400 SaO2% (BldA) [Mass fraction] 93 % Christiano Gonzales Other [employer] Other 06-01-2023 08:45-0400 Systolic blood pressure 130 mm[Hg] Christiano Gonzales Other [employer] Other 03-09-2023 08:45-0400 Body height 154.94 cm Millie Storm Other [employer] Other 03-09-2023 08:45-0400 Body mass index (BMI) [Ratio] 34.57 kg/m2 Millie Storm Other [employer] Other 03-09-2023 08:45-0400 Body temperature 96.8 [degF] Millie Storm Other [employer] Other 03-09-2023 08:45-0400 Body weight 83.01 kg Millie Storm Other [employer] Other 03-09-2023 08:45-0400 Diastolic blood pressure 56 mm[Hg] Millie Storm Other [employer] Other 03-09-2023 08:45-0400 SaO2% (BldA) [Mass fraction] 97 % Millie Storm Other [employer] Other 03-09-2023 08:45-0400 Systolic blood pressure 118 mm[Hg] Millie Storm Other [employer] Other 02-14-2023 10:19-0400 Body height 154.9 cm Wallace Stone MD Work Phone: [facility] 02-14-2023 10:19-0400 Body temperature 97.39 [degF] Wallace Stone MD Work Phone: [facility] 02-14-2023 10:19-0400 Body weight 84.46 kg Wallace Stone MD Work Phone: [facility] 02-14-2023 10:19-0400 Diastolic blood pressure 90 mm[Hg] Wallace Stone MD Work Phone: [facility] 02-14-2023 10:19-0400 Heart rate 102 /min Wallace Stone MD Work Phone: [facility] 02-14-2023 10:19-0400 Respiratory rate 16 /min Wallace Stone MD Work Phone: [facility] 02-14-2023 10:19-0400 SaO2% (BldA) [Mass fraction] 95 % Wallace Stone MD Work Phone: [facility] 02-14-2023 10:19-0400 Systolic blood pressure 151 mm[Hg] Wallace Stone MD Work Phone: [facility] 12-07-2022 14:00-0400 Body height 154.94 cm Millie Storm Other [employer] Other 12-07-2022 14:00-0400 Body mass index (BMI) [Ratio] 35.71 kg/m2 Millie Storm Other [employer] Other 12-07-2022 14:00-0400 Body temperature 97.6 [degF] Millie Storm Other [employer] Other 12-07-2022 14:00-0400 Body weight 85.73 kg Millie Storm Other [employer] Other 12-07-2022 14:00-0400 Diastolic blood pressure 68 mm[Hg] Millie Sotrm Other [employer] Other 12-07-2022 14:00-0400 SaO2% (BldA) [Mass fraction] 93 % Millie Storm Other [employer] Other 12-07-2022 14:00-0400 Systolic blood pressure 116 mm[Hg] Millie Faganvane Other [employer] Other 11-29-2022 11:53-0400 Diastolic blood pressure 54 mm[Hg] MD Mateus Perry Work Phone: [facility] 11-29-2022 11:53-0400 Heart rate 67 /min MD Mateus Perry Work Phone: [facility] 11-29-2022 11:53-0400 Respiratory rate 16 /min MD Mateus Perry Work Phone: [facility] 11-29-2022 11:53-0400 SaO2% (BldA) [Mass fraction] 94 % MD Mateus Perry Work Phone: [facility] 11-29-2022 11:53-0400 Systolic blood pressure 141 mm[Hg] MD Mateus Perry Work Phone: [facility] 11-29-2022 09:13-0400 Body height 154.94 cm MD Mateus Perry Work Phone: [facility] 11-29-2022 09:13-0400 Body weight 81.64 kg MD Mateus Perry Work Phone: [facility] 11-23-2022 11:00-0400 Body height 154.94 cm Christiano Gonzales Other [employer] Other 11-23-2022 11:00-0400 Body temperature 97.8 [degF] Christiano Gonzales Other [employer] Other 11-23-2022 11:00-0400 Diastolic blood pressure 62 mm[Hg] Christiano Gonzales Other [employer] Other 11-23-2022 11:00-0400 SaO2% (BldA) [Mass fraction] 96 % Christiano Gonzales Other [employer] Other 11-23-2022 11:00-0400 Systolic blood pressure 110 mm[Hg] Christiano Gonzales Other [employer] Other 11-09-2022 13:44-0500 Body height 154.9 cm Wallace Stone MD Work Phone: [facility] 11-09-2022 13:44-0500 Body temperature 97.11 [degF] Wallace Stone MD Work Phone: [facility] 11-09-2022 13:44-0500 Body weight 84.73 kg Wallace Stone MD Work Phone: [facility] 11-09-2022 13:44-0500 Diastolic blood pressure 72 mm[Hg] Wallace Stone MD Work Phone: [facility] 11-09-2022 13:44-0500 Heart rate 66 /min Wallace Stone MD Work Phone: [facility] 11-09-2022 13:44-0500 Respiratory rate 18 /min Wallace Stone MD Work Phone: [facility] 11-09-2022 13:44-0500 SaO2% (BldA) [Mass fraction] 100 % Wallace Stone MD Work Phone: [facility] 11-09-2022 13:44-0500 Systolic blood pressure 142 mm[Hg] Wallace Stone MD Work Phone: [facility] 09-22-2022 11:24-0500 Body height 154.9 cm Wallace Stone MD Work Phone: [facility] 09-22-2022 11:24-0500 Body temperature 97.81 [degF] Wallace Stone MD Work Phone: [facility] 09-22-2022 11:24-0500 Body weight 84.82 kg Wallace Stone MD Work Phone: [facility] 09-22-2022 11:24-0500 Diastolic blood pressure 64 mm[Hg] Wallace Stone MD Work Phone: [facility] 09-22-2022 11:24-0500 Heart rate 70 /min Wallace Stone MD Work Phone: [facility] 09-22-2022 11:24-0500 Respiratory rate 16 /min Wallace Stone MD Work Phone: [facility] 09-22-2022 11:24-0500 SaO2% (BldA) [Mass fraction] 94 % Wallace Stone MD Work Phone: [facility] 09-22-2022 11:24-0500 Systolic blood pressure 137 mm[Hg] Wallace Stone MD Work Phone: [facility] 09-09-2022 15:06-0500 Blood Pressure Location Iliana GAGNON [facility] 09-09-2022 15:06-0500 Diastolic blood pressure 68 mm[Hg] Iliana DORANL [facility] 09-09-2022 15:06-0500 Heart rate 68 /min Iliana DORANL [facility] 09-09-2022 15:06-0500 Respiratory rate 16 /min Iliana DORANL [facility] 09-09-2022 15:06-0500 Systolic blood pressure 130 mm[Hg] Iliana DORANL [facility] 06-28-2022 12:00-0400 SaO2% (BldA) [Mass fraction] 95 % Emma Plunkett MD Work Phone: [facility] 06-28-2022 11:50-0400 Body temperature 97.3 [degF] Emma Plunkett MD Work Phone: [facility] 06-28-2022 11:50-0400 Diastolic blood pressure 50 mm[Hg] Emma Plunkett MD Work Phone: [facility] 06-28-2022 11:50-0400 Heart rate 69 /min Emma Plunkett MD Work Phone: [facility] 06-28-2022 11:50-0400 Respiratory rate 16 /min Emma Plunkett MD Work Phone: [facility] 06-28-2022 11:50-0400 Systolic blood pressure 115 mm[Hg] Emma Plunkett MD Work Phone: [facility] 06-28-2022 07:36-0400 Body height 154.9 cm Emma Plunkett MD Work Phone: [facility] 06-28-2022 07:36-0400 Body mass index (BMI) [Ratio] 34.58 kg/m2 Emma Plunkett MD Work Phone: [facility] 06-28-2022 07:36-0400 Body weight 83.01 kg Emma Plunkett MD Work Phone: [facility] 12-13-2021 15:45-0400 Body temperature 97 [degF] Emma Plunkett MD Work Phone: [facility] 12-13-2021 15:45-0400 Diastolic blood pressure 96 mm[Hg] Emma Plunkett MD Work Phone: [facility] 12-13-2021 15:45-0400 Heart rate 65 /min Emma Plunkett MD Work Phone: [facility] 12-13-2021 15:45-0400 Respiratory rate 14 /min Emma Plunkett MD Work Phone: [facility] 12-13-2021 15:45-0400 SaO2% (BldA) [Mass fraction] 94 % Emma Plunkett MD Work Phone: [facility] 12-13-2021 15:45-0400 Systolic blood pressure 113 mm[Hg] Emma Plunkett MD Work Phone: [facility] 12-13-2021 09:46-0400 Body height 154.9 cm Emma Plunkett MD Work Phone: [facility] 12-13-2021 09:46-0400 Body mass index (BMI) [Ratio] 36.09 kg/m2 Emma Plunkett MD Work Phone: [facility] 12-13-2021 09:46-0400 Body weight 86.64 kg Emma Plunkett MD Work Phone: [facility] 12-06-2021 14:46-0400 Body height 154.[address] 12-06-2021 14:46-0400 Body mass index (BMI) [Ratio] 36.09 kg/m2 [address] [facility] 12-06-2021 14:46-0400 Body temperature 96.4 [degF] [address] 12-06-2021 14:46-0400 Body weight 86.[address] 12-06-2021 14:46-0400 Diastolic blood pressure 67 mm[Hg] [address] 12-06-2021 14:46-0400 Heart rate 62 /min [address] 12-06-2021 14:46-0400 Respiratory rate 20 /min [address] 12-06-2021 14:46-0400 SaO2% (BldA) [Mass fraction] 97 % [address] 12-06-2021 14:46-0400 Systolic blood pressure 153 mm[Hg] [address] 06-15-2021 10:14-0400 Body temperature 97.81 [degF] Kin Abarca MD Work Phone: [facility] Work Phone: 06-15-2021 10:14-0400 Diastolic blood pressure 58 mm[Hg] Kin Abarca MD Work Phone: [facility] Work Phone: 06-15-2021 10:14-0400 Heart rate 61 /min Kin Abarca MD Work Phone: [employer] Work Phone: 06-15-2021 10:14-0400 Respiratory rate 14 /min Kin Abarca MD Work Phone: [employer] Work Phone: 06-15-2021 10:14-0400 SaO2% (BldA) [Mass fraction] 96 % Kin Abarca MD Work Phone: [employer] Work Phone: 06-15-2021 10:14-0400 Systolic blood pressure 113 mm[Hg] Kin Abarca MD Work Phone: [employer] Work Phone: 06-15-2021 08:24-0400 Body height 154.9 cm Kin Abarca MD Work Phone: [employer] Work Phone: 06-15-2021 08:24-0400 Body mass index (BMI) [Ratio] 34.96 kg/m2 Kin Abarca MD Work Phone: [employer] Work Phone: 06-15-2021 08:24-0400 Body weight 83.92 kg Kin Abarca MD Work Phone: [employer] Work Phone: 05-12-2021 12:53-0400 Body height 154.9 cm [facility] 1 [employer] Work Phone: 05-12-2021 12:53-0400 Body mass index (BMI) [Ratio] 35.52 kg/m2 [facility] 1 [employer] Work Phone: 05-12-2021 12:53-0400 Body temperature 96.8 [degF] [facility] 1 [employer] Work Phone: 05-12-2021 12:53-0400 Body weight 85.28 kg [facility] 1 [facility] Phone: 05-12-2021 12:53-0400 Diastolic blood pressure 66 mm[Hg] [facility] Phone: 05-12-2021 12:53-0400 Heart rate 57 /min [facility] 1 [facility] Phone: 05-12-2021 12:53-0400 Respiratory rate 18 /min [facility] Phone: 05-12-2021 12:53-0400 SaO2% (BldA) [Mass fraction] 96 % [facility] [employer] [facility] Phone: 05-12-2021 12:53-0400 Systolic blood pressure 150 mm[Hg] [facility] Phone: Encounters Encounter Date Encounter Type Care Provider Facility Start: 06-20-2023 End: 06-20-2023 ambulatory WINNIE GUZMÁN Facility:[facility] Start: 06-20-2023 End: 06-20-2023 ambulatory Winnie Guzmán PA-C Work Phone: Hematology/Oncology Comment on above: 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, estrogen receptor positive (HCC) (Primary Dx); Stage 3a chronic kidney disease (HCC) Start: 06-20-2023 End: 06-20-2023 Patient encounter procedure Winnie Guzmán PA-C Work Phone: [facility] Start: 06-01-2023 End: 06-01-2023 ambulatory Christiano Gonzales Other [email or web address] Other Start: 06-01-2023 Office outpatient vi sit 15 minutes Christiano Gonzales [facility] Vascular Surgery Start: 04-06-2023 End: 04-07-2023 ambulatory MATEUS Hoa Hui [facility] Start: 03-20-2023 End: 03-20-[address] 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 Facility: Start: 12-08-2022 End: 12-08-2022 ambulatory Millie Faganvane Other [email or web address] Other Start: 12-08-2022 Telephone encounter Millie Faganvane [facility] Start: 12-07-2022 End: 12-07-2022 ambulatory Millie Emeterio Other [email or web address] Other Start: 12-07-2022 Patient encounter procedure Millie Emeterio [facility] Start: 11-29-2022 End: 11-29-2022 ambulatory Mateus Perry Facility:[facility] Start: 11-29-2022 End: 11-29-2022 Admission to same day surgery center MD Mateus Perry Work Phone: [facility] Work Phone: Start: 11-29-2022 End: 11-29-2022 ambulatory MD Mateus Perry Work Phone: [facility] Work Phone: Start: 11-24-2022 End: 11-25-2022 ambulatory LATONIA BRUSH [facility] Start: 11-24-2022 End: 11-24-2022 Subsequent hospital visit by physician Mateus Perry MD Work Phone: [facility] Start: 11-23-2022 End: 11-23-2022 ambulatory Christiano Gonzales Other [email or web address] Other Start: 11-23-2022 Office outpatient ne w 60 minutes Christiano Gonzales [facility] Vascular Surgery Start: 11-22-2022 End: 11-23-2022 ambulatory [...] encounter procedure Wallace Stone MD Work Phone: [facility] Start: 11-09-2022 Telephone encounter Wallace carolina MD [facility] Comment on above: Referral Information (Vascular Consult) Start: 11-08-2022 End: 11-09-2022 ambulatory Iliana GAGNON Facility:[facility] Start: 11-08-2022 End: 11-08-2022 Patient encounter procedure Iliana GAGNON General Surgery [facility] Start: 11-04-2022 End: 11-05-2022 ambulatory Iliana GAGNON Facility:[facility] Start: 11-04-2022 End: 11-04-2022 Patient encounter procedure Iliana GAGNON General Surgery Nill/[facility] [place] Start: 11-02-2022 End: 11-03-[address] MATEUS PERRY . Facility: Start: 10-25-2022 End: 10-26-2022 ambulatory Iliana GAGNON Facility:[facility] Start: 10-25-2022 End: 10-25-2022 Patient encounter procedure Iliana GAGNON General Surgery Nill/[facility] Start: 10-19-2022 End: 10-20-[address] ILIANA GAGNON . Facility: Start: 10-15-[address] ILIANA GAGNON . Facil ity: Start: 10-12-2022 Encounter for preprocedural laboratory examination DR ILIANA GAGNON . [facility] Start: 10-11-2022 End: 10-12-[address] ILIANA GAGNON . Facility: Start: 10-11-2022 End: 10-12-2022 Encounter for preprocedural laboratory examination DR ILIANA GAGNON . Facility: Start: 09-30-2022 End: 10-01-[address] MATEUS PERRY . Facility: Start: 09-22-2022 Telephone encounter Lars Wilkerson RN Work Phone: Hematology/Oncology Comment on above: Care Coordination (S urgery update) Start: 09-22-2022 End: 09-22-2022 ambulatory WALLACE STONE Facility:[facility] Start: 09-22-2022 End: 09-22-2022 ambulatory Wallace Stone [...] encounter procedure Iliana GAGNON General Surgery Nill/Said [place] Start: 09-05-[address] MATEUS PERRY . Facili ty:[facility] Start: 08-23-2022 End: 08-23-[address] MATEUS PERRY . Facility:[facility] Start: 08-19-2022 ambulatory Iliana GAGNON Facility : [place] Start: 08-19-2022 End: 08-19-[address] MATEUS [...] by physician Emma Garza MD Work Phone: [facility] Comment on above: Vaginal dysplasia Start: [...] hospital visit by physician Stv Pat Xr [facility] Comment on above: Arrived Start: 12-06-2021 [...] hospital visit by physician Stv Pat Xr [facility] Comment on above: Arrived Start: 05-12-2021 [...] above: Performed By: #### [id number] #### [address], [place] [address] Start: 01-16-2017 History of placement of stent [...] Activity Detail Author Start: 06-20-2024 Hemoglobin/Hematocrit Hemoglobin/Hem [facility] Start: 06-20-2024 Serum Creatinine Serum Creatinine [facility] Start: 02-15-2024 HEMOGLOBIN/HEMATOCRIT HEMOGLOBIN/HEM [facility] Start: 02-15-2024 SERUM CREATININE SERUM CREATININE [facility] Start: 06-16-2023 End: 08-16-2023 CBC W Auto Differential panel - Blood CBC + DIFF Lab Routine 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, estrogen receptor positive (HCC) Expected: 06/16/2023 (Approximate), Expires: 08/16/2023 [facility] Work Phone: Comment on above: Expected: 06/16/2023 (Approximate), Expires: 08/16/2023 Start: 06-16-2023 End: 08-16-2023 Comprehensive metabolic 2000 panel - Serum or Plasma COMP METABOLIC PANEL Lab Routine 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, estrogen receptor positive (HCC) Expected: 06/16/2023 (Approximate), Expires: 08/16/2023 [facility] Work Phone: Comment on above: Expected: 06/16/2023 (Approximate), Expires: 08/16/2023 Start: 05-12-2023 Covid-19 Vaccine ( season) Covid-19 Vaccine () [facility] Start: 05-12-2023 Influenza vaccination C [facility] Start: 04-12-2023 End: 04-12-2023 Patient encounter procedure 04/12/2023 Office Visit Gynecologic Oncology Latonia Brush PA-C [address] [place] [address] [facility] Start: 02-09-2023 End: 04-11-2023 CBC W Auto Differential panel - Blood CBC + DIFF Lab Routine 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, estrogen receptor positive (HCC) Expected: 02/09/2023 (Approximate), Expires: 04/11/2023 [facility] Work Phone: Comment on above: Expected: 02/09/2023 (Approximate), Expires: 04/11/2023 Start: 02-09-2023 End: 04-11-2023 Comprehensive metabolic 2000 panel - Serum or Plasma COMP METABOLIC PANEL Lab Routine 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, estrogen receptor positive (HCC) Expected: 02/09/2023 (Approximate), Expires: 04/11/2023 [facility] Work Phone: Comment on above: Expected: 02/09/2023 (Approximate), Expires: 04/11/2023 Start: 12-13-2022 Potassium monitoring Potassium monit [facility] Start: 12-06-2022 Creatinine measurement Creatinine mo nitoring [facility] Start: 12-06-2022 Potassium monitoring Potassium monit [facility] Start: 11-29-2022 End: 11-29-2022 [facility] Start: 09-11-2022 ADVANCE DIRECTIVE DISCUSSION ADVANCE DIRECTIVE DISCUSSION [facility] Start: 09-11-2022 DEPRESSION ASSESSMENT DEPRESSION ASS ESSMENT [facility] Start: 07-27-2022 End: 07-27-2022 Patient encounter procedure 07/27/2022 Office Visit Gynecologic Oncology Emma Garza MD [address] [facility] [address] [place] [address] [facility] Start: 06-28-2022 End: 06-28-2022 VULVA VAGINAL CERVIX LESION EXCISION LASER VULVA VAGINAL CERVIX LESION EXCISION LASER Vaginal dysplasia 06/28/2022 9:04 AM EDT [facility] Start: 06-15-2022 Creatinine measurement Creatinine mo [facility] Work Phone: Start: 06-15-2022 Potassium monitoring Potassium monit [facility] [employer] Phone: Start: 05-12-2022 Creatinine measurement Creatinine mo [facility] [employer] Phone: Start: 05-12-2022 Influenza vaccination INFLUENZA (#1) [facility] Start: 05-12-2022 Potassium monitoring Potassium monit [facility] Work Phone: Start: 04-11-2022 Influenza vaccination Flu vaccine (# 1) [facility] Start: 01-14-2022 End: 01-14-2022 Patient encounter procedure 01/14/2022 Office Visit Gynecologic Oncology Latonia Burks PA-C [address] [address] [address] [place] [address] [facility] Start: 12-13-2021 End: 12-13-2021 VAGINECTOMY [facility] Start: 12-13-2021 End: 12-13-2021 Admission to same day surgery center [facility] Comment on above: VAGINECTOMY, CYSTOSC OPY CYSTOSCOPY, VAGINECT PATY Start: 12-13-2021 Subsequent hospital visit by physician 12/13/2021 Hospital Encounter IP Unit Emma Garza MD [address] [facility] [address] [place] [address] [facility] Start: 12-13-2021 End: 04-04-2022 Vaginectomy complete removal vaginal wall VAGINECTOMY VAGINAL DYSPLASIA, RULE OUT CANCER 12/13/2021 10:20 AM EDT [facility] Start: 10-31-2021 Annual Wellness Visi t (AWV) Annual Wellness Visit (AWV) [facility] Start: 10-15-2021 COVID-19 VACCINE (4 - Booster for Moderna series) COVID-19 VACCINE (4 - Booster for Moderna series) [facility] Start: 07-01-2021 End: 07-01-2021 Patient encounter procedure 07/01/2021 Office Visit Gynecologic Oncology Kin Abarca MD [address] [facility] [address] [place] [address] [phone] [facility] Start: 05-12-2021 Influenza vaccination Flu vaccine (# 1) [facility] Work Phone: Start: 04-05-2021 COVID-19 Vaccine (3 - Booster for Moderna series) COVID-19 Vaccine (3 - Booster for Moderna series) [facility] Start: 10-29-2020 Hemoglobin A1c/Hemoglobin.total in Blood HBA1C [facility] Start: 01-19-2018 Pneumococcal Vaccine : 65+ (2 - PCV) Pneumococcal Vaccine: 65+ (2 - PCV) [facility] Start: 01-19-2018 PNEUMOCOCCAL: 65+ (2 - PCV) PNEUMOCOCCAL: 65+ (2 - PCV) [facility] Start: 2007 BONE DENSITY BONE DENSITY [facility] Start: 2007 Bone Density Screening Bone Density Screening [facility] Start: 2007 Pneumococcal 65+ yea rs Vaccine (1 - PCV) Pneumococcal 65+ years Vaccine (1 - PCV) [facility] Start: 2007 Pneumococcal 65+ yea rs Vaccine (1 of 1 - PPSV23) Pneumococcal 65+ years Vaccine (1 of 1 - PPSV23) [facility] Start: 2002 Hepatitis B Vaccine (1 of 3 - Risk 3-dose series) Hepatitis B Vaccine (1 of 3 - Risk 3-dose series) [facility] Start: 1997 Screening for osteoporosis DEXA (modify frequency per FRAX score) [facility] Start: 1992 Shingles Vaccine (1 of 2) Shingles Vaccine (1 of 2) [facility] Start: 1992 SHINGRIX VACCINE (1 of 2) SHINGRIX VACCINE (1 of 2) [facility] Start: 1961 DTaP/Tdap/Td vaccine (1 - Tdap) DTaP/Tdap/Td vaccine (1 - Tdap) [facility] Start: 1961 Urine microalbumin profile [facility] Start: 1960 ANNUAL PCP 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 USAMA DISEASE VISIT ANNUAL PCP TEAM CHRONIC DISEASE VISIT [facility] Start: 1960 BP CONTROLLED (<130/80) BP CON TROLLED (<130/80) [facility] Start: 1960 Hepatitis B surface antibody level LDL CHOLESTEROL [facility] Start: 1960 Hepatitis C screening Hepatitis C [facility] Start: 1954 Depression Screen Depression Screen [facility] Start: 1952 3 comp foot exam completed DIABETIC FOOT EXAM [facility] Start: 1952 Hepatitis B screening URINE ALBUMIN:CREATININE RATIO [facility] Start: 1952 Hepatitis C antibody , confirmatory test DILATED RETINAL EXAM [facility] Start: 1952 Lipid panel [facility] Start: 1942 Hepatitis C screening Hepatitis C [facility] EKG 12 Lead EKG 12 Lead ECG STAT 06/28/2022 7:29 AM EDT [facility] Work Phone: End: 12-13-2021 INITIATE PACU OXYGEN THERAPY PROTOCOL Initiate PACU Oxygen Therapy Protocol Respiratory Care Routine Continuous until discontinued starting 12/13/2021 [facility] [employer] Phone: Comment on above: Continuous until dis continued starting 12/13/2021 End: 06-28-2022 INITIATE PACU OXYGEN THERAPY PROTOCOL Initiate PACU Oxygen Therapy Protocol Respiratory Care Routine Continuous until discontinued starting 06/28/2022 [facility] [employer] Phone: Comment on above: Continuous until dis continued starting 06/28/2022 End: 07-19-2024 [facility]ST[facility] Radiology Routine 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, estrogen receptor positive (HCC) 1 Occurrences starting 06/20/2023 until 07/19/2024 [facility] Work Phone: Comment on above: 1 Occurrences starti ng 06/20/2023 until 07/19/2024 Patient referral [facility] Work Phone: Spirometry panel Incentive viktoriya metry Respiratory Care Routine Every 2hr while awake until discontinued starting 12/13/2021 [employer] Phone: Comment on above: Every 2hr while awak e until discontinued starting 12/13/2021 Surgical Pathology Surgical Path ology Lab Routine Release Upon Ordering for 1 Occurrences starting 06/15/2021 [employer] Phone: Comment on above: Release Upon Orderin g for 1 Occurrences starting 06/15/2021 Surgical Pathology Surgical Path ology Lab Routine Release Upon Ordering for 1 Occurrences starting 12/13/2021 [employer] Phone: Comment on above: Release Upon Orderin g for 1 Occurrences starting 12/13/2021 Surgical Pathology Surgical Path ology Lab Routine Vaginal dysplasia Release Upon Ordering for 1 Occurrences starting 06/28/2022 [employer] Phone: Comment on above: Release Upon Orderin g for 1 Occurrences starting 06/28/2022 End: 06-28-2022 SURGICAL PATHOLOGY REPORT SURGICAL PATHOLOGY REPORT Lab Routine Once for 1 Occurrences starting 06/28/2022 until 06/28/2022 [employer] Phone: Comment on above: Once for 1 Occurrenc es starting 06/28/2022 until 06/28/2022 End: 11-24-2022 SURGICAL PATHOLOGY REPORT SURGICAL PATHOLOGY REPORT Lab Routine Once for 1 Occurrences starting 11/24/2022 until 11/24/2022 [employer] Phone: Comment on above: Once for 1 Occurrenc es starting 11/24/2022 until 11/24/2022 [facility] Immunizations Immunization Date Immunization Notes Care Provider [facility] 07-12-2022 influenza virus vacc ine, unspecified formulation Iliana CHELSI [facility] 08-20-2021 SARS-CoV-2 (COVID-19 ) [id number] vaccine Iliana DORANBerna [facility] 07-01-2021 influenza (HD-IIV4) vaccine, age 65+ yr, high dose, quadrivalent, PF (FLUZONE HIGH-DOSE) Wallace Stone MD Work Phone: [facility] 07-01-2021 influenza virus vacc ine, unspecified formulation Winnie Guzmán PA-C Work Phone: [facility] 11-06-2020 COVID-19, Moderna, P F, 100mcg/0.5mL Stv Xr [facility] 10-09-2020 COVID-19, Moderna, P F, 100mcg/0.5mL Stv Xr [facility] Work Phone: 06-10-2020 Seasonal trivalent influenza vaccine, adjuvanted, preservative free Wallace Stone MD Work Phone: [facility] 06-07-2017 influenza, high dose seasonal, preservative-free Wallace Stone MD Work Phone: [facility] 01-19-2017 pneumococcal polysaccharide vaccine, 23 valent Wallace Stone MD Work Phone: [facility] 06-29-2015 influenza, high dose seasonal, preservative-free Wallace Stone MD Work Phone: [facility] 06-23-2014 influenza, high dose seasonal, preservative-free Wallace Stone MD Work Phone: [facility] 06-15-2010 pneumococcal polysaccharide vaccine, 23 valent Wallace Stone MD Work Phone: [facility] 06-27-2007 influenza virus vacc ine, whole virus Wallace Stone MD Work Phone: [facility] Payers Date Payer Category Payer Self-pay [id number] 2007 Medicare MEDICARE MEDICAR E A AND B [id number] 2007-Present [phone] [address] [address] [place] [address] Medicare [id number] 2007 Unknown [id number] 2007 Unknown [employer]PPLE[employer] [id number] 2007-Present [phone] [id number] [place] [address] Indemnity [id number] 1959 Medicare [id number] 1959 Self-pay [id number] 1957 Unknown [id number] 2.16.8 40.1.456702.19 1942 Unknown [id number] 2.16.840.1.942427.3.579.2.593 1942 Unknown [id number] 2.16.840.1.741482.3.579.2.593 1942 Unknown [id number] 2.16.840.1.189846.3.579.2.593 1942 Unknown [id number] 2.16.840.1.584968.3.579.2.593 1942 Unknown [id number] 2.16.840.1.469580.3.579.2.593 1942 Unknown [id number] 2.16.840.1.911755.3.579.2.593 1942 Unknown [id number] 2.16.840.1.573196.3.579.2.593 1942 Unknown [id number] 2.16.840.1.062592.3.579.2.593 1942 Unknown [id number] 2.16.840.1.399823.3.579.2.593 1942 Unknown [id number] 2.16.840.1.981812.3.579.2.593 1942 Unknown [id number] 2.16.840.1.366096.3.579.2.593 1942 Unknown [id number] 2.16.840.1.584292.3.579.2.593 1942 Unknown [id number] 2.16.840.1.186897.3.579.2.593 1942 Unknown [id number] 2.16.840.1.665637.3.579.2.593 1942 Unknown [id number] 2.16.840.1.962599.3.579.2.593 1942 Unknown [id number] 2.16.840.1.765438.3.579.2.593 1942 Unknown [id number] 2.16.840.1.301211.3.579.2.593 1942 Unknown [id number] 2.16.840.1.400741.3.579.2.593 1942 Unknown [id number] 2.16.840.1.242973.3.579.2.593 1942 Unknown [id number] 2.16.840.1.447036.3.579.2.593 1942 Unknown [id number] 2.16.840.1.764129.3.579.2.593 1942 Unknown [id number] 2.16.840.1.571984.3.579.2.593 1942 Unknown [id number] 2.16.840.1.211680.3.579.2.593 1942 Unknown [id number] 2.16.840.1.502827.3.579.2.593 1942 Unknown [id number] 2.16.840.1.971505.3.579.2.593 1942 Unknown [id number] 2.16.840.1.329406.3.579.2.593 1942 Unknown [id number] 2.16.840.1.849195.3.579.2.593 1942 Unknown [id number] 2.16.840.1.829761.3.579.2.727 1942 Unknown [id number] 2.16.840.1.636778.3.579.2.727 1942 Unknown [id number] 2.16.840.1.249306.3.579.2.727 1942 Unknown [id number] 2.16.840.1.678434.3.579.2.727 1942 Unknown [id number] 2.16.840.1.477312.3.579.2.727 1942 Unknown [id number] 2.16.840.1.518609.3.579.2.727 1942 Unknown [id number] 2.16.840.1.292783.3.579.2.727 1942 Unknown [id number] 2.16.840.1.304339.3.579.2.175 1942 Unknown [id number] 2.16.840.1.685653.3.579.2.175 1942 Unknown [id number] 2.16.840.1.574954.3.579.2.175 Medicare Medicare Outpatient [id number] Unknown [id number] 2.16.840.1.879900.3.579.2.531 Social History Date Type Detail Facility Start: 05-12-2021 End: 09-19-2022 Tobacco smoking status NHIS Former smoker [facility] Phone: Start: 09-11-1962 End: 06-28-2018 History of tobacco use Current smoker [employer] Start: 09-11-1962 End: 06-28-2018 History of tobacco use Cigarette Smoker [employer] Start: 05-12-2021 End: 09-19-2022 Tobacco use and exposure Never used [employer] Start: 05-12-2021 End: 11-24-2022 Alcohol intake Ex-drinker (finding) [facility] Phone: Start: 1940 Sex Assigned At Not on file [facility] [employer] Phone: Start: 11-26-2021 End: 06-24-2022 Exposure to SARS-CoV-2 (event) Not sure [facility] Start: 06-15-2021 End: 02-14-2023 Cigarettes smoked current (pack per day) - Reported [facility] History of tobacco use Passive smoker [facility] [employer] Phone: Tobacco smoking status Never [facility] [place] Start: 02-14-2023 Sex Assigned At Female F [facility] Start: 09-19-2022 End: 02-14-2023 Alcohol intake Current non-drinker of alcohol (finding) [facility] Start: 1940 Sex Assigned At Female F [facility] Medical Equipment Procedure Code Equipment Code [...] Type Note Facility 06-20-2023 Note HNO ID: [id number] Author: Winnie Guzmán PA-C Service: ? Author Type: Physician Sport Psychologist Type: Progress Notes Filed: 06/20/2023 3:58 PM Note Text: PATIENT NAME: Harman Mcleod CLINIC NO.: [id number] ATTENDING PHYSICIAN: Wallace Stone MD DATE OF [...] Negative LVI, 2 SNL negative, ER and NM >95% positive, Her2 IHC 1+ Treatment History: [...] 10/24/2017 7.3 Al (more content not included)... [facility] 06-20-2023 Nurse Note Patient would like to know if she needs a mammogram? She was told in Oct that she would need one in 6 months. Lina Lopes MA documented in this encounter [facility] 06-20-2023 History of Present illness Narrative Images from the original note were not included. PATIENT NAME: Harman Mcleod [facility] NO.: [id number] ATTENDING PHYSICIAN: Wallace Stone MD DATE OF [...] Negative LVI, 2 SNL negative, ER and NM >95% positive, Her2 IHC 1+ Treatment History: [...] Range Status 06/20/2023 4.8 % Final Abs [place]oke Date Value Ref Range Status 06/20/2023 0.49 [...] follow up. R Breast T1b,N0,M0- ER and NM >95% positive and Her-2 IHC 1+ tumor post Lumpectomy and SNL 10/2022. Reviewed path and she elected not to proceed with XRT and started Arimidex in 11/2022. Continues to tolerate well. Mammogram in 07/2023 (order placed). See us in 4 months. Plan is for 5 years of AI therapy Osteoporosis- On Prolia started 08/[address] Perry Vulvar high grade dysplasia- Follows [facility] at [facility] R Leg swelling and pain and h/o PVD- Follows vascular HTN--managed by PCP Winnie Guzmán PA-C CC: MD Mateus Spicer MD documented in this encounter [facility] 06-01-2023 Evaluation note Encounter Date Diagnosis Assessment [...] In addition I took her to the Compliance T[facility] and performed a right iliac venogram which [...] offer her a second opinion at the [facility] vascular [facility]. She declined. I will see her as needed in the future. [email or web address] Other 07-10-2023 NoteUT Cardiology - [facility] Subjective Harman Mcleod is a 82 y.o. year old female patient being seen [facility] F/U Coronary Artery Disease, Atrial Fibrillation, Congestive Heart Failure, and Hypertension Patient Active Problem List Diagnosis Angina pectoris (CMS/HCC) Atherosclerosis of [place] coronary artery of [place] heart without angina pectoris Dyslipidemia Dyspnea Gastroesophageal [...] chemo tablet, T (more content not included)... [facility]06-29-2023 Evaluation note* Encounter Date Diagnosis Assessment [...] to call us with any concerns whatsoever. [email or web address] Other 06-06-2023 NoteHNO ID: [id number] Author: Wallace Stone MD Service: ? Author Type: Physician Type: Progress Notes Filed: 02/14/2023 10:49 AM Note Text: PATIENT NAME: Harman Mcleod CLINIC NO.: [id number] ATTENDING PHYSICIAN: Wallace Stone MD DATE OF [...] Negative LVI, 2 SNL negative, ER and NM >95% positive, Her2 IHC 1+ Treatment History: [...] 04/28/2020 1.12 BUN (mg/dL) (more content not included)...[facility]06-06-2023 History of Present illness Narrative* Wallace Stone MD - 02/14/2023 10:37 AM EDT Images from the original note were not included. PATIENT NAME: Harman Coronel [facility] NO.: [id number] ATTENDING PHYSICIAN: Wallace Stone MD DATE OF [...] Negative LVI, 2 SNL negative, ER and NM >95% positive, Her2 IHC 1+ Treatment History: [...] Range Status 02/14/2023 8.3 % Final Abs Cooke Date Value Ref Range Status 02/14/2023 0.86 [...] follow up. R Breast T1b,N0,M0- ER and NM >95% positive and Her-2 IHC 1+ tumor post Lumpectomy and SNL 10/2022. Reviewed path and she elected not to proceed with XRT and started Arimidex in 11/2022 and toleraing well. Plan for 5 years of therapy. Osteoporosis- On Prolia started 08/[address] Perry Vulvar high grade dysplasia- Follows [facility] Onc at [facility] R Leg swelling and pain and h/o PVD- Follows vascular HTN Rash- refer to Derm Thank you for the kind referral. If there are any questions and or concerns please do not hesitate to contact me at [phone]. Wallace Stone MD Hematology/Medical Oncology [facility] spent a total of 30 minutes on the date of the service which included preparing to see the patient, [id number] patient care, completing clinical documentation, obtaining and/or reviewing separately obtained history, performing a medically appropriate examination, counseling and educating the pat ient/family/caregiver, and ordering medications, tests, or procedures. 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 We will continue to follow her along and see her again in a couple of months and see how she is doing with her pumps, conservative efforts, and weight management. She knows to call us in the meantime with any other additional concerns or complaints. [email or web address] Other [facility]* Encounter Date Diagnosis Assessment Notes [...] specified soft tissue disorders (ICD-10 - M79.89) [email or web address] Other 03-08-2023 Miscellaneous Notes* Telephone Encounter - Adriana Pereira [facility] - 11/16/2022 8:40 AM EST Called Vascular office spoke with Jessy. They have received this referral and have patient scheduledwith Dr Gonzales on 11/23 @ 10:00. Adriana Pereira [facility] * Telephone Encounter - Kira Ko [facility] - 11/10/2022 9:38 AM EST Records faxed. * Telephone Encounter - Adriana Pereira [facility] - 11/10/2022 8:46 AM EST Janeth: Information ready for you. Adriana Pereira [facility] * Telephone Encounter - Carlos Brooks - 11/09/2022 2:44 PM EST Vascular Consult [facility] Previous patient of Dr. Mendez 3 years or more. Janeth/Dudley: Can you please refer patient and follow up? Thanks! Carlos Brooks documented in this encounter[facility]23 NoteHNO ID: [id number] Author: Wallace Stone MD Service: ? Author Type: Physician Type: Progress Notes Filed: 11/09/2022 2:24 PM Note Text: PATIENT NAME: Harman Mcleod CLINIC NO.: [id number] ATTENDING PHYSICIAN: Wallace Stone MD DATE OF SERVICE: November 09, [address] Banks referring provider defined for this encounter. here is an update on a follow up visit on female Harman Mcleod at the clinic 11/09/2022 Diagnosis: T1b, N0, M0- R breast, Tumor 9 mm, Grade 2, Margins negative, Negative LVI, 2 SNL negative, ER and NM >95% positive, Her2 IHC 1+ Treatment History: [...] (mg/dL) Date Value 0 (more content not included)...[facility]03-01-2023 History of Present illness Narrative* Wallace Stone MD - 11/09/2022 2:00 PM EST Images from the original note were not included. PATIENT NAME: Harman Mcleod CLINIC NO.: [id number] ATTENDING PHYSICIAN: Wallace Stone MD DATE OF SERVICE: November 09, [address] Banks referring provider defined for this encounter. here is an update on a follow up visit on female Harman Mcleod at the clinic 11/09/2022 Diagnosis: T1b, N0, M0- R breast, Tumor 9 mm, Grade 2, Margins negative, Negative LVI, 2 SNL negative, ER and NM >95% positive, Her2 IHC 1+ Treatment History: [...] follow up. R Breast T1b,N0,M0- ER and NM >95% positive and Her-2 IHC 1+ tumor post Lumpectomy and SNL 10/2022. Reviewed path and she may skip radiation and also discussed hormonal; therapy with an AI and she will start Arimidex. Discussed adverse events and she wishes to proceed. Osteoporosis- On Prolia started 08/[address] Perry Vulvar high grade dysplasia- Follows [facility] Onc at [place] and next appointment 11/24/2022 CRI R Leg swelling and pain and h/o PVD- refer to vascular HTN Thank you for the kind referral. If there are any questions and or concerns please do not hesitate to contact me at [phone]. Wallace Stone MD Hematology/Medical Oncology [facility] I spent a total of 30 minutes on the date of the service which included preparing to see the patient, [id number] patient care, completing clinical documentation, obtaining and/or reviewing separately obtained history, performing a medically appropriate examination, counseling and educating the pat ient/family/caregiver, and ordering medications, tests, or procedures. CC: MD Mateus Spicer MD documented in this encounter[facility]23 NoteOPERATIVE NOTE OPERATION DATE: 10/19/2022 PREOPERATIVE DIAGNOSIS: Right breast cancer. POSTOPERATIVE DIAGNOSIS: Right breast cancer. PROCEDURE: Needle localized right breast lumpectomy with sentinel lymph node biopsy. SURGEON: Iliana Gagnon M.D. ANESTHESIA: General laryngeal mask airway. ELECTRICIAN DECK: SADI Hammer ESTIMATED BLOOD LOSS: Less than [...] in good condition. CC: Mateus Perry M.D.[facility] [id number] NoteEXAMINATION: XR CHEST 2 V HISTORY: Pre-surgery [...] Electronically authenticated by: ALFONSO GEORGE Date: 2022-10-11 12:11[facility]01-13-2023 NoteHNO ID: [id number] Author: Marcin Shah MD Service: ? Author Type: Physician Type: Progress Notes Filed: 2022 6:06 AM Note Text: Radiation Oncology - New Patient/Consult Note PATIENT NAME: Harman Mcleod PATIENT REQUESTING PHYSICIAN: Dr. 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 PATIENT IDENTIFICATION: This patient was seen in the Department of Radiation Oncology at the [facility] with Marcin Shah MD. She was accompanied today by her family. Final recommendations will be communicated back to the requesting physician by way of the shared medical record, or letter to requesting physician via US mail. HISTORY OF PRESENT ILLNESS: Ms. Mcleod is an 82-year-old woman from [place], [place] who was discovered on screening mammogram from July 2022 to have an abnormality within the anterior upper outer quadrant of the right breast. This was confirmed on ultrasound and she underwent stereotactic biopsy on 08/19/2022 with pathology revealing intermediate grade IDC that was ER/NM positive HER2 negative. She has met with [...] acetaminophen (TYLENOL EXTRA STRENGTH (more content not included)...[facility]01-12-2023 History of Present illness Narrative* Marcin Shah MD - 09/22/2022 11:38 PM EST Images from the original note were not included. Radiation Oncology - New Patient/Consult Note PATIENT NAME: Harman Mcleod PATIENT Signed: Marcin Shah MD I spent a total of 60 minutes on the date of the service which included preparing to see the patient, ykps-it-horr patient care, and counseling and educating the patient/family/caregiver. This document has been created with the use of voice recognition technology. It may contain inaccuracies, misspellings, inaccurate syntax or inappropriate word context that are a result of the inadequacies/shortcomings of said technology/software. documented in this encounterSelect [facility]-2023 NoteHNO ID: [id number] Author: Wallace Stone MD Service: ? Author Type: Physician Type: Progress Notes Filed: 09/22/2022 5:19 PM Note Text: PATIENT NAME: Harman Mcleod [facility] NO.: [id number] ATTENDING PHYSICIAN: Wallace Stone MD DATE OF [...] provisional grade 1 through 2, ER and NM greater than 95% positive, HER2/holden negative with an IHC score of 1+ and FISH negative at [facility]. This patient was subsequently referred to Dr. Iliana Gagnon for surgical consultation. Patient denies any previous history of abnormal mammograms and or breast biopsy. She has had a recent bone density in [place] and was diagnosed with osteoporosis and started on Prolia as well. Patient has a sister who was diagnosed with breast cancer at the age of 82 and her daughter diagnosed with breast cancer at the age of 37. She quit smoking approximately 4 years ago. 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 She [...] mouth daily at bedtime. Cut in half Feosf-1-PUQ-EPA-Fish Oil 1,000 mg (120 mg-180 mg) cap [...] mellitus, type 2) (HCC) (more content not included)...[facility]01-12-2023 History of Present illness Narrative* Wallace Stone MD - 09/22/2022 5:10 PM EST Images from the original note were not included. PATIENT NAME: Harman Mcleod [facility] NO.: [id number] ATTENDING PHYSICIAN: Wallace Stone MD DATE OF [...] provisional grade 1 through 2, ER and NM greater than 95% positive, HER2/holden negative with an IHC score of 1+ and FISH negative at [facility]. This patient was subsequently referred to Dr. Iliana Gagnon for surgical consultation. Patient denies any previous history of abnormal mammograms and or breast biopsy. She has had a recent bone density in [place] and was diagnosed with osteoporosis and started on Prolia as well. Patient has a sister who was diagnosed with breast cancer at the age of 82 and her daughter diagnosed with breast cancer at the age of 37. She quit smoking approximately 4 years ago. 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 She [...] mouth daily at bedtime. Cut in half Ikuaw-2-MQX-EPA-Fish Oil 1,000 mg (120 mg-180 mg) cap [...] smear of vagina (HGSIL) 12/[address] Maroc Mai High risk HPV infection History of [...] ductal carcinoma, provisional grade 1-2, ER and NM greater than 95% positive, HER2/holden negative with [...] Wallace Stone M.D. Hematology/Medical Oncology [facility] [phone] CC: MD Mateus Spicer MD I spent a total of 60 minutes on the date of the service which included preparing to see the patient, djrj-cr-wnkm patient care, completing clinical documentation, obtaining and/or reviewing separately obtained history, performing a medically appropriate examination, counseling and educating the pat ient/family/caregiver, ordering medications, tests, or procedures, and communicating with other HCPs (not separately reported). documented in this encounterSelect [facility]23 Miscellaneous Notes* Telephone Encounter - Lars Wilkerson RN - 09/22/2022 3:52 PM EST Images from the original note were not included. Wallace Stone MD You 2 hours ago (1:49 PM) Ok. * Telephone Encounter - Lars Wilkerson RN - 09/22/2022 1:40 PM EST Call placed to Zakiya at Dr Gagnon's office. Pt had cardiac clearance on 09/16/22 and is scheduled for surgery on 10/19/22. There are a few different things that have to be coordinated for her surgery and as of now this date is going to work for everything involved. Lars Wilkerson RN documented in this encounterSelect [facility] NoteCardiology Clinic Note Subjective Harman Mcleod is [...] List Diagnosis Angina pectoris (CMS/HCC) Atherosclerosis of [place] coronary artery of [place] heart without angina pectoris Dyslipidemia Dyspnea Gastroesophageal [...] mouth., Disp: , Rfl: fish oil concentrate ([place]-3) 120-180 mg capsule, Take 1,000 mg by [...] Recent Labs 08/13/22: Hg (more content not included)...[facility] 09-16-2022 NotePatient here for 5 mo follow up CAD, PVD, CHF, and PAF. She needs the ok to hold aspirin and Eliquis for upcoming breast lumpectomy. Denies chest pain, SOB, and bleeding on Eliquis. Review of Systems Constitutional: Positive for malaise/fatigue. Cardiovascular: Positive for leg swelling. Neurological: Positive for tremors. All other systems reviewed and are negative.[facility] 09-09-2022 NoteChief Complaint consultation for right [...] biopsy that r evealed invasive ductal carcinoma, ER/NM +; Her2 holden negative; patient denies change [...] gms IV prior to OR SCDs Ordered: [facility] External Ambulatory Referral [facility] External Ambulatory Referral 2. 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 Ordered: [facility] External Ambulatory Referral [facility] External Ambulatory Referral 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 of [place] artery of extremity BMI 36.0-36.9,adult Brain stem vertigo Breast cancer of (more content not included)...[facility] Comment on above:Result Comment: Electronically Signed By: CHELSI CARDONA, Iliana Castillo.veto\Date and Time Signed: 09/09/22 16:38 [id number] History of Present illness Narrative* Brody Ken [...] Plunkett MD - 06/28/2022 9:08 AM EDT [facility] On[facility] Attending Note Patient seen and evaluated [...] per Deborah/ Dr. Garza. documented in this encounterCOO[facility]OSPITALBluenote Phone: 1(254) 148-514610-18-2022 Hospital Discharge instructions* Discharge Instructions* Brody Ken [...] your doctor documented [facility] [employer] Phone: 1(261) 156-738304-04-2022 History of Present illness Narrative* Brody Ken [...] Plunkett MD - 12/13/2021 2:12 PM EDT [facility] Attending Note Patient seen and evaluated [...] chart for or 12/13/21 documented in this encounterGrant HospitalPowered Phone: 1(533) 984-455804-04-2022 Evaluation note* Diagnosis Vaginectomy w/ Cysto 12/13/21- Primary Other postprocedural status documented in this encounter [facility] Phone: 1(129) 539-271104-04-2022 Hospital Discharge instructions* Instructions* Brody Ken RN [...] of: May 19, 2021 Content Version: 13.2 [employer]. Care instructions adapted under license by [employer]. If you have questions about a medical condition or this instruction, always ask your healthcare professional. [employer] disclaims any warranty or liability for your [...] urinate call your doctor documented in this [facility] Phone: 1(683) 464-923703-28-2022 History of Present illness Narrative* YANA Wallis [...] Disease: Yes, stents x 3, Dr. Keyes ([facility]) Hypertension: yes Active smoker: Quit 2017, [...] as well. There is a note in [employer] from Dr. Garza that he has also already spoken with cardiology regarding blood thinners. YOANNA DIAZ PA-C 12/06/21 3:54 PM * Byron Oshea RN - 12/06/2021 3:[address] garza and pcp potassium 3.3,wbc 12.6 documented in this [facility] Phone: 1(882) 886-279703-25-2022 Hospital Discharge instructions* Instructions* Yoanna Diaz PA [...] drive you home after your procedure. Your armored car driver must be 18 years of age [...] questions, call the Pre-Admission Testing Unit at [phone]. Day of Surgery/Procedure As a patient at [facility] you can expect quality medical and nursing care that is centered on your individual needs. Our goal is to make your surgical experience as comfortableas possible . Directions to the Surgery Center [facility] is located at [address] [place] [address]. Please pull into the Emergency parking lot and stop at the data analysis assistant richards. We offer free data analysis assistant service for all our surgery patients, if you choose not to have data analysis assistant parking we have additional parking across the street.You will enter the facility following the [facility] sign. Please stop at the clerical receptionist desk where you will be checked in by the staff. If you have any questions please call [phone]. Transportation after your procedure. You will need a friend or family member to drive you home after your procedure. Your armored car driver must be18 years of age or [...] You may shave your face or neck. [place] your teeth but do not swallow water. [...] or the day of surgery, please call [phone], or [phone] documented in this [facility] [employer] Phone: 1(325) 445-835810-05-2021 History of Present illness Narrative* Parvin Rogel RN - 06/15/2021 10:[address] Kamla gan, pt cleared for phase II * Alla Dickerson DO - 06/15/2021 9:42 AM EDT OB Resident Progress Note Patient may be discharged home once she has met criteria in the PACU. Please perfect serve or page COBOL DEVELOPER resident listed below with any questions, concerns, or if patient has not met PACU discharge criteria in 2-3 hours. . Please page first. Alla Dickerson DO COBOL DEVELOPER Resident PGY3 Pager: [phone] [facility], [place] 06/15/2021, 9:42 AM documented in this [employer] Phone: 1(337) 604-453510-04-2021 Hospital Discharge instructions* Instructions* Alla Dickerson DO [...] cleared by your physician documented in this [employer] Phone: 1(176) 603-320409-01-2021 Hospital Discharge instructions* Instructions* Na Cabezas APRN - DIVISION ROAD SUPERVISOR - 05/12/2021 Pre-operative Instructions Please arrive at [...] public transportation ALONE is not acceptable. -Your armored car driver must be 18 years of age [...] Day of Surgery/Procedure As a patient at [facility] you can expect quality medical and nursing care that is centered on your individual needs. Our goal is to make your surgical experience as comfortableas possible . Directions to the Surgery Center [facility] is located at [address] [place] [address]. Please pull into the Emergency/Surgery Center parking lot and stop at the data analysis assistant richards. We offer free data analysis assistant service for all our surgery patients, if you choose not to have data analysis assistant parking we have additional parking across the [...] pharmacy bottles in a zip lock bag. [place] your teeth but do not swallow water. [...] DAY OF your surgery, you may call [phone] documented in this [employer] Phone: 1(501) 297-639709-01-2021 History of Present illness Narrative* Mandy Baker [...] Pedal edema Pneumonia PVD (peripheral vascular disease) ([facility]) Thyroid disease Under care of team 05/12/2021 dr Perry [place]-last visit apr 2021 Under care of team 05/12/20[facility] Varicose vein of leg Patient was evaluated in [facility] & anesthesia guidelines were applied. NPO guidelines, medication instructions and scheduled arrival time were reviewed with patient. Anesthesia contacted: Yes I spoke with Dr. Rondon. Patient history and pertinent findings reviewed. Patient with history of CAD, CHF, stress test and cardiac echo (results not in Epic, from outside provider), cardiac stentx 3. Last saw utility teller in December 2020. On Eliquis and aspirin prescribed from her utility teller. Medical or cardiac clearance ordered: cardiac FERNY Andres CNP 05/12/21 2:43 PM [facility] [employer] Work Phone: evaluation + Plan noteGeneral Surgery [place] Evaluation + Plan note Future Appointments Appointment Date:11/08/2022 02:00:00 PM Scheduled Provider:Iliana GAGNON MD Location:[facility] Appointment Type:[place] [address] General Surgery [place] evaluation + Plan note Future Appointments Appointment Date:11/22/2022 01:40:00 PM Scheduled Provider:Iliana GAGNON MD Location:[facility] Appointment Type:[place] [address] General Surgery [place] evaluation note* Diagnosis Pre-op chest exam Pre-operative respiratory examination documented in this encounter [employer] Phone: [email or web address] note* Diagnosis S/p Partial vaginectomy with Ultrasonic Scalpel 06/15/21- 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, 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 documented in this encounter [place] Phone: [email or web address] note* Diagnosis Pre-op chest exam Pre-operative respiratory examination documented in this encounter [employer] [place] Phone: [email or web address] note* Diagnosis Vaginal dysplasia Dysplasia of vagina S/p Vaginal and Vulvar Biopsies, CO2 laser vaporization of vaginal and vulvar lesions 06/28/22 Other postprocedural status 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, 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 documented in this encounter ENIO BEVERLY [employer] Phone: evaluation note* Diagnosis 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, estrogen receptor positive (HCC)- Primary [facility] Diagnosis 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 breast in female, estrogen receptor positive (HCC)- Primary [facility] Diagnosis 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, estrogen receptor positive (HCC)- Primary Claudication in peripheral vascular disease (HCC) Peripheral vascular disease, unspecified documented in this encounter [facility] note[facility] assessment information [facility] Work Phone: Evaluation noteNo InformationNort Moverati 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, estrogen receptor positive (HCC)- Primary Rash Rash and other nonspecific skin eruption Other eczema Stage 3a chronic kidney disease (HCC) documented in this encounter [facility]* Diagnosis 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, estrogen receptor positive (HCC)- Primary Stage 3a chronic kidney disease (HCC) documented [facility] this [facility] Narrative - [...] RENAL DSA'S, ANGIOPLAS TIES & STENTING 04-25-2019 [email or web address] Other History general Narrative - Reported* Type [...] History VAGINAL ABLASION OF CANCER CELL S [email or web address] Other Hospital course Narrative No data available for this section General Surgery [facility] Discharge instructions No data available for this section General Surgery [facility] Progress note No data available for this section General Surgery [facility] Reason for referral (narrative) Referred by: Iliana GAGNON MD Referred by: Iliana GAGNON MD General Surgery [facility] Revpoo for referral (narrative)* Diagnostic Procedure Only (Routine) - Pending Review Specialty Diagnoses / Procedures Referred By Jacinta fernandez Referred To Contact [facility] Diagnoses 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, estrogen receptor positive (HCC) Procedures MAGNO DIAGNOSTIC BILATERAL DIAGNOSTIC MAMMOGRAPHY COMPUTER-AIDED DETCJ Winnie Guzmán PA-C [address] [place] [address] [place] [address] [facility] [address] [place] [id number] Referral ID Status Reason Start Date Expiration Date Visits Requested Visits Authorized [id number] Pending Review Auto-Generat ed Referral 3 07/19/2024 1 1 [facility] for visit Narrative* Auth/Cert Specialty Diagnoses / Procedures Referred By Jacinta fernandez Referred To Contact Diagnoses Vaginal dysplasia VAGINAL DYSPLASIA Procedures NM OFFICE/OUTPT VISIT,PROCEDURE ONLY NM COMPLETE REMOVAL OF VAGINA WALL NM CYSTOURETHROSCOPY CYSTOSCOPY, VAGINECTOMY Emma Garza MD [address] [facility] [address] [place] [address] [employer] [address] [place] [address] Referral ID Status Reason Start Date Expiration Date Visits Re quested Visits Authorized 1 1 [facility] Phone: Summary Purpose Family History No Family [...] Documents on File Type Date Recorded Patient Mobile Architect Expl anation Advance Directive(s) 01/16/2017 3:59 PM Documents on File Type Date Recorded Patient Mobile Architect Expl anation Advance Directive(s) 01/16/2017 3:59 PM [...] EKG 12 lead KimmieLatonia novoa, PA-C [address] [facility] [address] [place] [address] Specialty Diagnoses / Procedures Referred By Contac t Referred To Contact Cardiology Diagnoses Pre-op chest exam Procedures EKG 12 lead Kimmie, Latonia, PA-C [address] [place] [address] Referral ID Status Reason Start Date Expiration Date Visits Re quested Visits Authorized [id number] Open 11/22/2021 11/22/2022 1 1 Specialty Diagnoses / Procedures Referred By Contac t Referred To Contact Vascular Surgery Diagnoses Claudication in peripheral vascular disease (HCC) Procedures CONSULT TO VASCULAR SURGERY OFFICE/OUTPATIENT [facility] 60-74 MINUTES Wallace Stone MD [address] [place] [address] Referral ID Status Reason Start Date Expiration Date Visits Requested Visits Authorized [id number] Authorized PCP Requested Referral 11/16/2022 11/09/2023 1 1 Specialty Diagnoses / Procedures Referred By Contac t Referred To Contact Dermatology Diagnoses Rash Other eczema Procedures CONSULT TO DERMATOLOGY OFFICE/OUTPATIENT [facility] 60-74 MINUTES Wallace Stone MD [address] [place] [address] Referral ID Status Reason Start Date Expiration Date Visits Requested Visits Authorized [id number] Authorized PCP Requested Referral 02/14/2023 02/14/2024 1 1 Chief Complaint and Reason for Visit Chief Complaint Right Leg Swelling Additional Source Comments INFORMATION SOURCE (unrecogn ized section and content) DATE CREATED AUTHOR 02/05/2021 [facility] DATE CREATED AUTHOR AUTHOR'S ORGANIZ ATION 12/09/2022 [facility] DATE CREATED AUTHOR AUTHOR'S ORGANIZ ATION 01/22/2023 [facility] DATE CREATED AUTHOR AUTHOR'S ORGANIZ ATION 03/20/2023 [facility] DATE CREATED AUTHOR AUTHOR'S ORGANIZ ATION 06/22/2023 [facility] DATE CREATED AUTHOR AUTHOR'S ORGANIZ ATION 06/23/2023 [facility] DATE CREATED AUTHOR AUTHOR'S ORGANIZ ATION 07/13/2023 [facility] Reason for Visit (unrecogniz ed section and content) Status Reason Specialty Diagnoses / Procedures Re ferred By Contact Referred To Contact Diagnoses 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 Procedures NM REMOVE VAGINA WALL, PARTIAL NM COLPOSCOPY,CERVIX W/ADJ VAGINA PARTICAL VAGINECTOMY WITH ULTRASONIC SCAPEL VAGINAL COLPOSCOPY WITH MICROSCOPE Kin Abarca MD [address] [facility] [address] [address] [facility] Specialty Diagnoses / Procedures Referred By Contac t Referred To Contact Diagnoses Vaginal dysplasia VAGINAL DYSPLASIA Procedures NM OFFICE/OUTPT VISIT,PROCEDURE ONLY NM DESTRUCT,VAGINAL LESION(S),SIMPLE CO2 LASER VAPORIZATION OF LESIONS (FORT CONF# [id number] - JEREMIAS) Emma Garza MD [address] [facility] [address] [place] [address] [facility] [address] [place] [address] Referral ID Status Reason Start Date Expiration Date Visits Re quested Visits Authorized [id number] 1 1 Reason Comments Care Coordination Surgery [...] 25 g 1 06/28/2022 bacitracin-polymyxin b (POLYSPORIN) [id number] UNIT/GM ointment Apply topically 2 times daily. [...] g 0 06/28/2022 06/28/2022 bacitracin-polymyxin b (POLYSPORIN) [id number] UNIT/GM ointment Apply topically 2 times daily. [...] Mackenzie CRNA)1519 (Anesthesia Volume Adjustment - Provider: FERYN Mackenzie CRNA) PRN Medication Order 12/11/2021 12/12/2021 [...] Care Teams (unrecognized sec tion and content) Back Maker Relationship Specialty Start Date End Date Mateus Perry MD [address] [place] [address] PCP - General Family Medicine 03/04/21 Back Maker Relationship Specialty Start Date End Date Mateus Perry MD [address] [place] [address] PCP - General Family Medicine 03/04/21 Back Maker Relationship Specialty Start Date End Date Mateus Perry MD [address] [place] [address] PCP - General Family Medicine 03/04/21 Back Maker Relationship Specialty Start Date End Date Mateus Perry MD [address] [place] [address] PCP - General Family Medicine 03/04/21 Back Maker Relationship Specialty Start Date End Date Mateus Perry MD PCP - General Family Medicine 01/05/17 Back Maker Relationship Specialty Start Date End Date Mateus Perry MD PCP - General Family Medicine 01/05/17 Back Maker Relationship Specialty Start Date End Date Mateus Perry MD PCP - General Family Medicine 01/05/17 Back Maker Relationship Specialty Start Date End Date Mateus Perry MD PCP - General Family Medicine 01/05/17 Back Maker Relationship Specialty Start Date End Date Mateus Perry MD PCP - General Family Medicine 01/05/17 Back Maker Relationship Specialty Start Date End Date Mateus Perry MD PCP - General Family Medicine 01/05/17 Back Maker Relationship Specialty Start Date End Date Mateus Perry MD [address] [place] [address] PCP - General Family Medicine 03/04/21 Team Status: Active Member Role Status Dates Mateus Perry MD Primary Care Provider Active Team Status: Inactive Member Role Status Dates Mateus Perry MD Primary Care Provider Active Christiano Gonzales MD Attending Provider Active Back Maker Relationship Specialty Start Date End Date Mateus Perry MD PCP - General Family Medicine 01/05/17 Back Maker Relationship Specialty Start Date End Date Mateus Perry MD PCP - General Family Medicine 01/05/17 Source Comments (unrecognize d section and content) In the event this informatio n is protected by the Federal Confidentiality of Alcohol and Drug Abuse Patient Records regulations: The Federal rules restrict any use of the information to criminally investigate or prosecute any alcohol or drug abuse patient.[facility] the event this information is protected by the Federal Confidentiality of Alcohol and Drug Abuse Patient Records regulations: The Federal rules restrict any use of the information to criminally investigate or prosecute any alcohol or drug abuse patient.[facility] the event this information is protected by the Federal Confidentiality of Alcohol and Drug Abuse Patient Records regulations: The Federal rules restrict any use of the information to criminally investigate or prosecute any alcohol or drug abuse patient.[facility] the event this information is protected by the Federal Confidentiality of Alcohol and Drug Abuse Patient Records regulations: The Federal rules restrict any use of the information to criminally investigate or prosecute any alcohol or drug abuse patient.[facility] the event this information is protected by the Federal Confidentiality of Alcohol and Drug Abuse Patient Records regulations: The Federal rules restrict any use of the information to criminally investigate or prosecute any alcohol or drug abuse patient.[facility] the event this information is protected by the Federal Confidentiality of Alcohol and Drug Abuse Patient Records regulations: The Federal rules restrict any use of the information to criminally investigate or prosecute any alcohol or drug abuse patient.[facility] the event this information is protected by the Federal Confidentiality of Alcohol and Drug Abuse Patient Records regulations: The Federal rules restrict any use of the information to criminally investigate or prosecute any alcohol or drug abuse patient.[facility] North[facility] the event this information is protected by [...] BE BASED ON THE PRIMARY CLINICAL RECORDS. [facility] [employer] [facility]. provides no warranty or guarantee of the accuracy or completeness of information in this document.
[2023-10-14 23:28] LABS: Glucometer 175 mg/dL (74-106)
[2023-10-14] MEDS: CEPHALEXIN 500 MG CAPSULE PO (23:29)
[2023-10-14] MEDS: BENZONATATE 100 MG CAPSULE PO (23:29)
[2023-10-14] MEDS: FLUCONAZOLE 100 MG TABLET PO (23:29)
[2023-10-15] VITALS (25 sets, daily range): BP systolic 105–126; BP diastolic 51–73; PULSE 79–118; RESP 16–24; TEMP 36.4–36.8; O2SAT 90–94
[2023-10-15 00:27] LABS: Bilirubin Urine NEGATIVE (NEGATIVE); Blood Urine NEGATIVE (NEGATIVE); Clarity Urine CLEAR (CLEAR); Color Urine LT. YELLOW (YELLOW); Glucose Urine UA NEGATIVE (NEGATIVE); Ketones Urine NEGATIVE (NEGATIVE); Leukocyte Esterase Urine NEGATIVE (NEGATIVE); Nitrite Urine NEGATIVE (NEGATIVE); Protein Urine NEGATIVE (NEG/TRACE); Urobilinogen Urine 0.2 EU/dL (0.2-1.0); pH Urine 5.5 (5.0-9.0)
[2023-10-15 00:29] LABS: Urine Microscopic Indicated NO
[2023-10-15] MEDS: METHYLPREDNISOLONE SOD SUCC PF 125 MG/2 ML VIAL 60 MG IVP ×4 (03:13→20:04)
[2023-10-15] MEDS: SUCRALFATE 1 GM TABLET PO ×4 (05:16→22:28)
[2023-10-15] MEDS: BENZONATATE 100 MG CAPSULE PO ×2 (05:16→13:32)
[2023-10-15] MEDS: HYDRALAZINE HCL 50 MG TABLET 100 MG PO (05:16)
[2023-10-15] MEDS: CEPHALEXIN 500 MG CAPSULE PO (05:16)
--- NOTE | 2023-10-15 05:31 | PC.NURSE ---
Left braun had small dressing. Serous drainage observed. Dressing removed. Steristrip intact. Dressing to back of left thigh is clean, dry, and intact.
[2023-10-15 05:39] LABS: PCO2 VBG 49.6 mmHg (40.0-52.0); pH VBG 7.363 (7.330-7.430)
[2023-10-15 05:40] LABS: Basophils Percent Auto 0.1 % (0.2-2.0); Hematocrit 32.4 % (36.0-48.0); Hemoglobin 10.2 g/dL (12.0-16.0); Immature Granulocytes Abs Auto 0.07 10^3/uL (0.00-0.03); Immature Granulocytes Pct Auto 0.8 % (0.0-0.5); Lymphocytes Absolute Auto 1.1 10^3/uL (1.2-3.8); Lymphocytes Percent Auto 13.4 % (20.5-60.0); Mean Corpuscular HGB Conc 31.5 g/dL (29.9-35.2); Mean Corpuscular Hemoglobin 30.4 pg (26.7-34.0); Mean Corpuscular Volume 96.7 fL (81.0-99.0); Monocytes Absolute Auto 0.2 10^3/uL (0.3-0.8); Neutrophils Absolute Auto 7.1 10^3/uL (1.4-6.5); Neutrophils Percent Auto 83.7 % (43.0-75.0); Platelet Count 234 10^3/uL (150-450); Red Blood Count 3.35 10^6/uL (4.20-5.40); Red Cell Distribution Width 16.6 % (11.0-15.0); White Blood Count 8.5 10^3/uL (4.0-11.0)
[2023-10-15 06:09] LABS: Troponin I High Sensitivity 10.5 pg/mL (4.0-51.3)
[2023-10-15 06:15] LABS: Alanine Aminotransferase 18 U/L (14-59); Albumin Globulin Ratio 0.6; Albumin Level 2.5 g/dL (3.4-5.0); Alkaline Phosphatase 87 U/L (46-116); Anion Gap 11.4; Aspartate Amino Transferase 11 U/L (15-37); BUN Creatinine Ratio 21.9; Bilirubin Total 0.4 mg/dL (0.2-1.0); Chloride 99 mmol/L (98-107); Estimated GFR (African America 39 (>=60); Estimated GFR (Non-African Ame 32 (>=60); Globulin 4.3 g/dL; Glucose 228 mg/dL (74-106); Potassium 5.4 mmol/L (3.5-5.1); Sodium 135 mmol/L (136-145); Total Protein 6.8 g/dL (6.4-8.2)
[2023-10-15] MEDS: LEVOTHYROXINE SODIUM 112 MCG TABLET PO (06:15)
[2023-10-15] MEDS: INSULIN DETEMIR 300 UNIT/3 ML INSULN.PEN 10 UNIT SQ (09:32)
[2023-10-15] MEDS: INSULIN ASPART 300 UNIT/3 ML PEN SUBQ ×4 (09:33→22:36)
[2023-10-15] MEDS: GLIMEPIRIDE 2 MG TABLET 4 MG PO ×2 (09:36→20:07)
[2023-10-15] MEDS: BUMETANIDE 10 MG in 0.9 % SODIUM CHLORIDE 160 ML 20 MG IV (09:36)
[2023-10-15] MEDS: METOPROLOL SUCCINATE 100 MG TAB.ER.24H 200 MG PO (09:37)
[2023-10-15] MEDS: LEVOFLOXACIN IN DEXTROSE 5 % 750 MG/150 ML IV.SOLN 100 MG IV (09:37)
[2023-10-15] MEDS: APIXABAN 5 MG TABLET PO ×2 (09:37→20:07)
[2023-10-15] MEDS: AMLODIPINE BESYLATE 5 MG TABLET PO (09:37)
[2023-10-15] MEDS: ISOSORBIDE MONONITRATE 30 MG TAB.ER.24H PO (09:37)
[2023-10-15] MEDS: FLUCONAZOLE 100 MG TABLET PO (09:37)
[2023-10-15] MEDS: FERROUS SULFATE 325 MG TABLET PO ×2 (09:37→20:06)
[2023-10-15] MEDS: LIOTHYRONINE SODIUM 5 MCG TABLET 10 MCG PO (09:37)
--- NOTE | 2023-10-15 09:53 | P.HP_ITS ---
H&P: HPI History of Present Illness Chief complaint: sob Narrative: I did my usp rounds yesterday and she was having a little bit of shortness of breath then but no hypoxia. As the day progressed she became increasingly short of breath and found to have significant hypoxia. In ER had O2 saturation of 84%. Placed on supplemental oxygen with good result. With elevated BNP, troponins are negative, patient was admitted for acute combined congestive heart failure. Complicating things that she also is a cellulitis of her left lower extremity. Review of Systems ROS Status of ROS 10 or more systems reviewed and unremark able except as noted in history and below [facility] Medical History (Updated 10/15/23 @ 10:52 by Gil Blake MD) Weakness ?R53.1 - Weakness (ICD-10) Acute right hip pain ?M25.551 - Pain in right hip (ICD-10) Rheumatoid arthritis flare ?M06.9 - Rheumatoid arthritis, unspecified (ICD-10) Difficulty in walking ?R26.2 - Difficulty in walking, not elsewhere classified (ICD-10) Arthralgia ?M25.50 - Pain in unspecified joint (ICD-10) CAD, multiple vessel ?I25.10 - Atherosclerotic heart disease of [place] coronary artery without angina pectoris (ICD-10) Atrial fibrillation ?I48.91 - Unspecified atrial fibrillation (ICD-10) COPD (chronic obstructive pulmonary disease) ?J44.9 - Chronic obstructive pulmonary disease, unspecified (ICD-10) Gouty arthritis ?M10.9 - Gout, unspecified (ICD-10) Hypothyroidism (acquired) ?E03.9 - Hypothyroidism, unspecified (ICD-10) Hypokalemia ?E87.6 - Hypokalemia (ICD-10) Iron deficiency anemia ?D50.9 - Iron deficiency anemia, unspecified (ICD-10) Type 2 diabetes mellitus ?E11.9 - Type 2 diabetes mellitus without complications (ICD-10) Surgical History (Updated 10/14/23 @ 23:04 by Zena Bhakta) H/O: hysterectomy ?Z90.710 - Acquired absence of both cervix and uterus (ICD-10) History of appendectomy ?Z90.49 - Acquired absence of other specified parts of digestive tract (ICD- 10) H/O heart artery stent ?Z95.5 - Presence of coronary angioplasty implant and graft (ICD-10) Family History (Updated 10/14/23 @ 23:05 by Zena Bhakta) Father Family history of CHF (congestive heart failure) Family history of cancer Family history of hypertension Sister Family history of cancer Family history of diabetes mellitus Mother Family history of diabetes mellitus Family history of hypertension Social History (Updated 10/14/23 @ 23:06 by Zena Bhakta) Within the past year, how often did you have a drink containing alcohol: never Score interpretation: A score less than 3 is consistent with normal alcohol consumption. Smoking status: Former smoker Non-prescribed substance use: denies use Previous occupational history: retired Highest level of school completed/degree received: high school graduate Are you now , , , , never or living with a partner: In a typical week, how many times do you talk on the telephone with family, friends, or neighbors: 3 or more times per week How often do you get together with friends or relatives: 3 or more times per week How often do you attend episcopalian or yarsani services: 4 or more times per year Little interest or pleasure in doing things: not at all Feeling down, depressed, or hopeless: not at all Feel stressed/tense/nervous/anxious/difficulty sleeping: not at all Do you think of yourself as: straight/heterosexual Gender Identity: female Meds Home Medications and Allergies Home Medications Medication Instructions Recorded Confirmed Type albuterol sulfate 2.5 mg/3 mL 2.5 mg continuous nebulization Q4H 03/04/23 10/14/23 History (0.083 %) solution for nebulization PRN shortness of breath or wheezing albuterol sulfate 90 mcg/actuation 2 puff inhalation Q4H PRN 03/04/23 10/14/23 History aerosol inhaler shortness of breath or wheezing amlodipine 5 mg tablet 5 mg PO DAILY 03/04/23 10/14/23 History anastrozole 1 mg tablet 1 mg PO DAILY 03/04/23 10/14/23 History apixaban 5 mg tablet (Eliquis) 5 mg PO BID 03/04/23 10/14/23 History aspirin 81 mg tablet,delayed 81 mg PO DAILY 03/04/23 08/20/23 History release (Adult Low Dose Aspirin) furosemide 40 mg tablet 40 mg PO Q12H 03/04/23 10/14/23 History glimepiride 4 mg tablet 4 mg PO BID 03/04/23 10/14/23 History hydralazine 100 mg tablet 100 mg PO TID 03/04/23 10/14/23 History isosorbide mononitrate 60 mg 60 mg PO DAILY 03/04/23 10/14/23 History tablet,extended release 24 hr levothyroxine 112 mcg tablet 112 mcg PO DAILY 03/04/23 10/14/23 History liothyronine 5 mcg tablet 10 mcg PO DAILY 03/04/23 10/14/23 History metformin 500 mg tablet 500 mg PO BID 03/04/23 10/14/23 History metoprolol succinate 200 mg 200 mg PO DAILY 03/04/23 10/14/23 History tablet,extended release 24 hr simvastatin 20 mg tablet 20 mg PO BEDTIME 03/04/23 10/14/23 History sucralfate 1 gram tablet 1 g PO QID 03/04/23 10/14/23 History febuxostat 40 mg tablet 40 mg PO DAILY 08/20/23 10/14/23 History potassium chloride 20 mEq 20 meq PO BID 08/20/23 10/14/23 History tablet,extended release(part/cryst) (Klor-Con M) ferrous sulfate 325 mg (65 mg 325 mg PO BID #60 tabs 08/24/23 10/14/23 Rx iron) tablet fluconazole 100 mg tablet 100 mg PO QD #10 tabs 08/24/23 10/14/23 Rx insulin aspart U-100 100 unit/mL 4 - 24 unit (0.04 - 0.24 mL) 08/24/23 10/14/23 Rx (3 mL) subcutaneous pen (Novolog subcut ACHS #15 mL FlexPen U-100 Insulin aspart) prednisone 10 mg tablet 60 mg (6 x 10 mg) PO DAILY #60 tabs 08/24/23 Rx cephalexin 500 mg capsule 500 mg PO Q6H 10/14/23 10/14/23 History doxycycline hyclate 100 mg capsule 100 mg PO BID 10/14/23 10/14/23 History insulin glargine 100 unit/mL 10 unit subcut QAM 10/14/23 10/14/23 History subcutaneous solution (Lantus U-100 Insulin) Allergies Allergy/AdvReac Type Severity Reaction Status Date / Time oxycodone AdvReac Severe nausea and Verified 08/20/23 08:04 vomiting tramadol AdvReac Severe Vomiting Verified 08/20/23 08:04 cefdinir AdvReac Unknown Vomiting Verified 08/20/23 08:04 ciprofloxacin AdvReac Unknown Vomiting Verified 08/20/23 08:04 Exam Constitutional Vital Signs, click to edit/add: Last Vital Signs Temp 97.5 F L 10/15/23 05:35 Pulse 84 10/15/23 07:55 Resp 20 10/15/23 05:35 BP 121/69 10/15/23 09:36 Pulse Ox 90 L 10/15/23 05:35 O2 Del Method Nasal Cannula 10/15/23 05:35 O2 Flow Rate 3 10/15/23 05:35 Documenting provider has reviewed patient's vital signs: yes Common normals: apparent distress (Outcome stational dyspnea) HENMT Common normals: normocephalic and head/scalp atraumatic Chest Common normals: inspection of chest normal Respiratory Common normals: abnormal respiratory effort (Mild dyspnea) Auscultation: rales (Bases) and wheezes (Diffuse) Cardio Common normals: regular rate Rhythm: abnormal rhythm GI Common normals: Normal to inspection, nondistended, normoactive bowel sounds present Extremity Common normals: abnormal to inspection (3+ Bilateral lower extremity edema, cellulitis left thigh.) Neuro Common normals: CN's II-XII intact bilaterally and moves all extremities Results Labs Labs: Short CBC 10/14/23 10/15/23 Range/Units 19:20 04:33 WBC 13.0 H 8.5 (4.0-11.0) 10^3/uL Hgb 10.7 L 10.2 L (12.0-16.0) g/dL Hct 33.6 L 32.4 L (36.0-48.0) % Plt Count 279 234 (150-450) 10^3/uL BMP 10/14/23 10/15/23 19:20 04:33 Sodium 137 135 L Potassium 5.0 5.4 H Chloride 98 99 Carbon Dioxide 32.6 H 30.0 BUN 30.0 H 34.0 H Creatinine 1.46 H 1.55 H Glucose 134 H 228 H Calcium 9.4 9.0 Liver Function 10/14/23 10/15/23 Range/Units 19:20 04:33 Total Bilirubin 0.3 0.4 (0.2-1.0) mg/dL AST 15 11 L (15-37) U/L ALT 21 18 (14-59) U/L Alkaline Phosphatase 99 87 (46-116) U/L Albumin 2.8 L 2.5 L (3.4-5.0) g/dL Urine 10/15/23 Range/Units 00:15 Urine Color Lt. yellow (YELLOW) Urine Clarity Clear (CLEAR) Urine pH 5.5 (5.0-9.0) Ur Specific [place] 1.010 (1.005-1.025) Urine Protein Negative (NEG/TRACE) mg/dL Urine Glucose (UA) Negative (NEGATIVE) mg/dL ABG ABG results: 10/15/23 04:33 VBG pH 7.363 VBG pCO2 49.6 Assessment and Plan Assessment and Plan (1) CHF (congestive heart failure): Assessment and Plan: Acute combined congestive heart failure resulting in acute hypoxia with O2 saturation of 84%. Bumex drip this morning. Monitor BMP daily (2) Hypoxia: Assessment and Plan: Secondary to the above with complicated by her chronic COPD. No sputum production currently. (3) Atrial fibrillation: Assessment and Plan: Rate elevated on admission but is improved this morning. Continue to monitor, on 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 Qualifiers: Atrial fibrillation type: longstanding persistent Qualified Code(s): I48.11 - Longstanding persistent atrial fibrillation (4) COPD (chronic obstructive pulmonary disease): Assessment and Plan: Start patient on breathing treatments. She does have some diffuse wheeze but may be related more to her acute combined congestive heart failure. But with her significant hypoxia of 84% will add aerosols Qualifiers: COPD type: unspecified COPD Qualified Code(s): J44.9 - Chronic obstructive pulmonary disease, unspecified (5) Hypothyroidism (acquired): Assessment and Plan: Check on levels previously done (6) Iron deficiency anemia: Assessment and Plan: Monitor daily Qualifiers: Iron deficiency anemia type: unspecified iron deficiency Qualified Code(s): D50.9 - Iron deficiency anemia, unspecified (7) Type 2 diabetes mellitus: Assessment and Plan: Insulin sliding scale Qualifiers: Diabetes mellitus meterman insulin use: without meterman use Diabetes mellitus complication status: without complication Qualified Code(s): E11.9 - Type 2 diabetes mellitus without complications (8) CAD, multiple vessel: Assessment and Plan: No chest pain (9) Moderate protein-calorie malnutrition: Assessment and Plan: Supplement (10) Hyperkalemia: Assessment and Plan: Stop oral potassium. Bumex drip initiated for the acute combined congestive heart failure will likely decrease her potassium. (11) Cellulitis and abscess of left leg: Assessment and Plan: Consult to wound management, IV antibiotics. Plan With the degree of cellulitis of her left leg severity of her acute combined congestive heart failure patient required a 2 to 3-day hospital stay as a minimum. Spanning 2 midnights. She be placed as inpatient status.
[2023-10-15 11:23] LABS: Glucometer 398 mg/dL (74-106)
[2023-10-15] MEDS: ENSURE HP 237 ML LIQUID PO ×2 (11:26→20:07)
[2023-10-15] MEDS: IPRATROPIUM/ALBUTEROL SULFATE 3 ML AMPUL.NEB IH ×3 (11:36→23:43)
[2023-10-15] MEDS: PIPERACILLIN SODIUM/TAZOBACTAM 3.375 GM in 0.9 % SODIUM CHLORIDE 50 ML IV ×2 (11:49→20:04)
[2023-10-15] MEDS: ACETAMINOPHEN 500 MG TABLET 1000 MG PO ×2 (13:32→21:38)
[2023-10-15 16:17] LABS: Glucometer 354 mg/dL (74-106)
--- NOTE | 2023-10-15 20:45 | PC.NURSE ---
Wound culture obtained from draining area on the lt posterior thigh. Area was and continues to be covered (dressing was rolled up so obtained culture then fixed dressing) Pt state that she also has wounds on her lt lower leg under her duncan hose. Hose rolled down. Drainage noted on duncan hose on the lt outer upper braun area. No obvious open draining wounds noted but a curled up, dry steri strip was removed.. Pt states that she has wounds on the top of her ankle with steri strip but no strips noted. 4X4 placed on lt outer calf when duncan hose showed drainage.
[2023-10-15 21:56] LABS: Glucometer 369 mg/dL (74-106)
[2023-10-15] MEDS: ATORVASTATIN CALCIUM 10 MG TABLET PO (22:29)
[2023-10-16] VITALS (23 sets, daily range): BP systolic 110–130; BP diastolic 67–76; PULSE 76–116; RESP 18–22; TEMP 36.2–36.6; O2SAT 90–99
[2023-10-16 04:07] LABS: Glucometer 299 mg/dL (74-106)
--- NOTE | 2023-10-16 04:13 | PC.NURSE ---
Abnormal rhythm on telemonitor. Entered patient s room to check on her and patient was complaining of not feeling well. Small tremors noted. Patient complained of nausea and stated I don't know if its my blood sugar or what but I just don't feel good Denied chest pain or dizziness.. Vitals checked and blood glucose was 299. Patient instructed to call if symptoms change.
[2023-10-16] MEDS: IPRATROPIUM/ALBUTEROL SULFATE 3 ML AMPUL.NEB IH ×4 (04:24→22:34)
[2023-10-16] MEDS: METHYLPREDNISOLONE SOD SUCC PF 125 MG/2 ML VIAL 60 MG IVP ×2 (04:44→08:33)
[2023-10-16] MEDS: PIPERACILLIN SODIUM/TAZOBACTAM 3.375 GM in 0.9 % SODIUM CHLORIDE 50 ML IV ×2 (04:45→21:27)
[2023-10-16] MEDS: BENZONATATE 100 MG CAPSULE PO ×3 (05:16→21:27)
[2023-10-16] MEDS: SUCRALFATE 1 GM TABLET PO ×4 (05:16→21:26)
[2023-10-16 05:37] LABS: Basophils Percent Auto 0.1 % (0.2-2.0); Hematocrit 29.9 % (36.0-48.0); Hemoglobin 9.6 g/dL (12.0-16.0); Immature Granulocytes Abs Auto 0.11 10^3/uL (0.00-0.03); Immature Granulocytes Pct Auto 0.8 % (0.0-0.5); Lymphocytes Absolute Auto 0.9 10^3/uL (1.2-3.8); Lymphocytes Percent Auto 6.9 % (20.5-60.0); Mean Corpuscular HGB Conc 32.1 g/dL (29.9-35.2); Mean Corpuscular Hemoglobin 31.1 pg (26.7-34.0); Mean Corpuscular Volume 96.8 fL (81.0-99.0); Mean Platelet Volume 9.9 fL (9.5-13.5); Monocytes Absolute Auto 0.6 10^3/uL (0.3-0.8); Monocytes Percent Auto 4.2 % (1.7-12.0); Neutrophils Absolute Auto 11.8 10^3/uL (1.4-6.5); Platelet Count 259 10^3/uL (150-450); Red Blood Count 3.09 10^6/uL (4.20-5.40); Red Cell Distribution Width 16.7 % (11.0-15.0); White Blood Count 13.4 10^3/uL (4.0-11.0)
[2023-10-16 06:14] LABS: Alanine Aminotransferase 25 U/L (14-59); Albumin Globulin Ratio 0.6; Albumin Level 2.4 g/dL (3.4-5.0); Alkaline Phosphatase 88 U/L (46-116); Anion Gap 15.1; Aspartate Amino Transferase 15 U/L (15-37); BUN Creatinine Ratio 28.8; Bilirubin Total 0.3 mg/dL (0.2-1.0); Calcium 9.3 mg/dL (8.5-10.1); Carbon Dioxide 29.1 mmol/L (21.0-32.0); Chloride 96 mmol/L (98-107); Estimated GFR (African America 31 (>=60); Estimated GFR (Non-African Ame 25 (>=60); Globulin 4.2 g/dL; Glucose 312 mg/dL (74-106); Potassium 4.2 mmol/L (3.5-5.1); Sodium 136 mmol/L (136-145); Total Protein 6.6 g/dL (6.4-8.2)
[2023-10-16] MEDS: LEVOTHYROXINE SODIUM 112 MCG TABLET PO (06:23)
[2023-10-16] MEDS: HYDRALAZINE HCL 50 MG TABLET 100 MG PO ×3 (06:48→21:26)
[2023-10-16 07:37] LABS: Glucometer 381 mg/dL (74-106)
--- NOTE | 2023-10-16 08:25 | PM.PN ---
Progress Note: Subjective Subjective Interval history: Patient is a little bit better with her breathing. Exam Constitutional Vital Signs, click to edit/add: Last Vital Signs Temp 97.1 F L 10/16/23 06:00 Pulse 108 H 10/16/23 08:00 Resp 20 10/16/23 06:00 BP 130/76 10/16/23 06:48 Pulse Ox 94 L 10/16/23 06:00 O2 Del Method Nasal Cannula 10/16/23 06:00 O2 Flow Rate 3 10/16/23 06:00 Documenting provider has reviewed patient's vital signs: yes Common normals: apparent distress (Outcome stational dyspnea) HENMT Common normals: normocephalic and head/scalp atraumatic Chest Common normals: inspection of chest normal Respiratory Common normals: abnormal respiratory effort (Mild dyspnea) Auscultation: rales (Bases) and wheezes (Diffuse) Cardio Common normals: regular rate Rhythm: abnormal rhythm GI Common normals: Normal to inspection, nondistended, normoactive bowel sounds present Extremity Common normals: abnormal to inspection (3+ Bilateral lower extremity edema, cellulitis left thigh.) Neuro Common normals: CN's II-XII intact bilaterally and moves all extremities Progress Note: Objective Labs Labs: Short CBC 10/16/23 Range/Units 04:26 WBC 13.4 H (4.0-11.0) 10^3/uL Hgb 9.6 L (12.0-16.0) g/dL Hct 29.9 L (36.0-48.0) % Plt Count 259 (150-450) 10^3/uL BMP 10/16/23 04:26 Sodium 136 Potassium 4.2 Chloride 96 L Carbon Dioxide 29.1 BUN 55.0 H Creatinine 1.91 H Glucose 312 H Calcium 9.3 Liver Function 10/16/23 Range/Units 04:26 Total Bilirubin 0.3 (0.2-1.0) mg/dL AST 15 (15-37) U/L ALT 25 (14-59) U/L Alkaline Phosphatase 88 (46-116) U/L Albumin 2.4 L (3.4-5.0) g/dL Progress Note: A&P Assessment and Plan (1) CHF (congestive heart failure): Assessment and Plan: Diuresed well yesterday. Continue with diuresis today (2) Hypoxia: Assessment and Plan: Secondary to acute incontinence combined congestive heart failure (3) Atrial fibrillation: Assessment and Plan: Anticoagulated rate controlled Qualifiers: Atrial fibrillation type: longstanding persistent Qualified Code(s): I48.11 - Longstanding persistent atrial fibrillation (4) COPD (chronic obstructive pulmonary disease): Assessment and Plan: On antibiotics for the cellulitis. No sputum production Qualifiers: COPD type: unspecified COPD Qualified Code(s): J44.9 - Chronic obstructive pulmonary disease, unspecified (5) Hypothyroidism (acquired): Assessment and Plan: Medicare Lungs: (6) Iron deficiency anemia: Assessment and Plan: Monitor daily Qualifiers: Iron deficiency anemia type: unspecified iron deficiency Qualified Code(s): D50.9 - Iron deficiency anemia, unspecified (7) Type 2 diabetes mellitus: Assessment and Plan: Insulin sliding scale Qualifiers: Diabetes mellitus complication status: without complication Diabetes mellitus emt intermediate insulin use: without half-way use Qualified Code(s): E11.9 - Type 2 diabetes mellitus without complications (8) CAD, multiple vessel: Assessment and Plan: No chest pain (9) Moderate protein-calorie malnutrition: Assessment and Plan: Supplement (10) Hyperkalemia: Assessment and Plan: Improved (11) Cellulitis and abscess of left leg: Assessment and Plan: Wound therapy to evaluate today erythema not significantly improved from previous day Plan With lack of improvement with wound and cellulitis as well as her acute combined congestive heart failure on supplemental oxygen currently she does not wear that at home. Will try to wean off of supplemental oxygen but needs to maintain his inpatient status.
--- NOTE | 2023-10-16 08:27 | XR_ITS ---
The [address] [address] Patient Name: OSCAR MCLEOD MRN: [id number] date: 1940 Sex: F Assigned Patient Location: [place] Current Patient Location: [place] Accession/Order Number: [id number] Exam Date: 10/16/2023 09:12 Report Date: 10/16/2023 09:50 At the request of: MATEUS PERRY Procedure: XR acute abdomen series EXAM: XR acute abdomen series HISTORY: abd pain COMPARISON: Chest study dated 10/14/2023 TECHNIQUE: PA view of the chest was obtained. Supine and upright views of the abdomen were obtained. FINDINGS: Heart and mediastinal contours are grossly unremarkable in appearance. Mild patchy density overlying the lower lung curiel compatible with atelectatic and/or infiltrative changes. Small bilateral pleural effusions inferiorly. Moderate degenerative changes in the dorsal spine with slight convexity to the right. There is air seen in large and small bowel loops. No evidence of bowel obstruction or free intraperitoneal air. No significantly increased fecal load in the colon. Moderate degenerative changes in the lumbar spine. Postoperative clips overlying the left hip region. XR/XR acute abdomen series IMPRESSION: Consider mild atelectatic and/or infiltrative changes in the lower lung curiel with small bilateral pleural effusions. Findings appear slightly progressed compared to the prior exam. Grossly nonspecific abdomen. Follow-up as needed. Electronically authenticated by: DAYLIN BARRERA Date: 10/16/2023 09:50
--- NOTE | 2023-10-16 08:31 | CA_ITS ---
Patient Name: OSCAR MCLEOD MR#: [id number] : 1940 Exam Date: 10/16/2023 Ordering Doctor: DR MATEUS PERRY . ECHOCARDIOGRAM REPORT PROCEDURE: CA ECHO LIMITED INDICATIONS: Elevated BNP, congestive heart failure COMPARISON: None. DESCRIPTION: Limited ECHOCARDIOGRAM Real-time transthoracic echocardiography with 2D and M-mode performed. QUALITY: Technical quality was good. Limited echocardiogram per physician order. 60 , 191#, BSA 1.83 m2 LEFT VENTRICLE: Normal chamber size. Borderline left ventricular hypertrophy. LV EF: The left ventricular systolic function is difficult to assess but appears preserved; visually estimated ejection fraction is 55%. Unable to assess regional wall motion abnormalities. LEFT ATRIUM: Normal chamber size. RIGHT ATRIUM: Normal chamber size. RIGHT VENTRICLE: Poorly seen. Normal chamber size. TRICUSPID VALVE: Normal mobility and thickness. MITRAL VALVE: Mildly thickened. Mild mitral annular calcification. AORTIC VALVE: Normal trileaflet appearance. Moderately calcified aortic valve. AORTIC ROOT: Normal diameter and appearance. PULMONIC VALVE: Not well visualized. PERICARDIUM: Anterior free space; trivial effusion versus fat pad. IVC: Collapses with inspirations. CONCLUSION: 1. Global left ventricular systolic function is difficult to assess but appears preserved; visually estimated ejection fraction is 55% 2. The right ventricle is poorly seen; it appears normal in size. Unable to assess systolic function. 3. Anterior free space; trivial effusion versus fat pad A limited echocardiogram was performed Adult Echocardiography Procedure Report Left Ventricle LVEDD (3.7 - 5.6 cm): 4.69 cm LVESD (2.2 - 4.0 cm): 2.85 cm LVIVS thickness (0.6 - 1.2 cm): 1.05 cm LVPW thickness (0.5 - 1.0 cm): 1.18 cm LVOT Diameter 2.10 cm Left Atrium LA Volume Index (2D A2C): 94022 mm3 Left Atrium Systolic Dimension: 4.10 cm Mitral Valve Right Ventricle Aorta AO Root Diam: 3.20 cm Aortic Valve Tricuspid Valve Pulmonic Valve Right Atrium Dictated by: Valentin Pisano M.D. on 10/16/2023 at 14:56 Approved by: Valentin Pisano M.D. on 10/16/2023 at 14:59
[2023-10-16] MEDS: LIOTHYRONINE SODIUM 5 MCG TABLET 10 MCG PO (08:33)
[2023-10-16] MEDS: ISOSORBIDE MONONITRATE 30 MG TAB.ER.24H PO (08:33)
[2023-10-16] MEDS: GLIMEPIRIDE 2 MG TABLET 4 MG PO ×2 (08:34→21:25)
[2023-10-16] MEDS: METOPROLOL SUCCINATE 100 MG TAB.ER.24H 200 MG PO (08:34)
[2023-10-16] MEDS: FLUCONAZOLE 100 MG TABLET PO (08:34)
[2023-10-16] MEDS: FERROUS SULFATE 325 MG TABLET PO ×2 (08:34→21:26)
[2023-10-16] MEDS: AMLODIPINE BESYLATE 5 MG TABLET PO (08:35)
[2023-10-16] MEDS: ENSURE HP 237 ML LIQUID PO ×2 (08:35→21:27)
[2023-10-16] MEDS: APIXABAN 5 MG TABLET 2.5 MG PO ×2 (08:35→21:26)
[2023-10-16] MEDS: INSULIN DETEMIR 300 UNIT/3 ML INSULN.PEN 10 UNIT SQ (08:35)
[2023-10-16] MEDS: INSULIN ASPART 300 UNIT/3 ML PEN SUBQ ×4 (08:36→21:28)
[2023-10-16] MEDS: PANTOPRAZOLE SODIUM 40 MG VIAL IV (08:47)
--- NOTE | 2023-10-16 09:39 | CM.NOTE ---
Rounds made with Dr. Blake. Voices complaints of nausea, almost daily. Dr. Blake states will add a medication to help with the nausea. No plan for discharge today.
--- NOTE | 2023-10-16 09:41 | CM.NOTE ---
Important Message from Medicare reviewed and signed. Horta voices no questions. Copy to chart and to Ms. Horta.
[2023-10-16 11:02] LABS: Glucometer 337 mg/dL (74-106)
[2023-10-16] MEDS: METHYLPREDNISOLONE SOD SUCC PF 40 MG/ML VIAL IVP ×2 (14:40→21:26)
--- NOTE | 2023-10-16 15:24 | SWNOTE1 ---
Pt is from [facility], her plan is to return at discharge. SW sent over updates. Updates included physician notes, labs, dianostic imaging, PT/OT notes, med list, vitals, and pertinent nursing notes.
--- NOTE | 2023-10-16 15:44 | W.PM.WC_ITS ---
Wound Consult Note Assessment and Plan (1) CHF (congestive heart failure): (2) Hypoxia: (3) Atrial fibrillation: Qualifiers: Atrial fibrillation type: longstanding persistent Qualified Code(s): I48.11 - Longstanding persistent atrial fibrillation (4) COPD (chronic obstructive pulmonary disease): Qualifiers: COPD type: unspecified COPD Qualified Code(s): J44.9 - Chronic obstructive pulmonary disease, unspecified (5) Hypothyroidism (acquired): (6) Iron deficiency anemia: Qualifiers: Iron deficiency anemia type: unspecified iron deficiency Qualified Code(s): D50.9 - Iron deficiency anemia, unspecified (7) Type 2 diabetes mellitus: Qualifiers: Diabetes mellitus custodial insulin use: without custodial use Diabetes mellitus complication status: without complication Qualified Code(s): E11.9 - Type 2 diabetes mellitus without complications (8) CAD, multiple vessel: (9) Moderate protein-calorie malnutrition: (10) Hyperkalemia: (11) Cellulitis and abscess of left leg: Reason for Consult: left posterior thigh wound, left lower leg weeping skin, bilateral lower leg dry/scaly skin Assessment and Plan: Patient seen today for evaluation of multiple skin ulcerations. Patient states she had an area on the back of her left thigh that she was told was a carbuncle. She states it was lanced and area has been draining since. Her provided a silicone bordered foam dressing that she has been using in the nursing facility to be applied to this area today. The area is improving her the that it is less discolored, draining less, and not as swollen. Area measures 0.8cmx0.4cmx0.3cm. There is a mix of red and yellow slough to wound bed. No appreciated depth or tunneling noted. Patient is wearing BLE RONAL hose for edema management. She states she had skin leaking to her left braun yesterday. Removed RONAL hose and dressing to find no drainage at this time, however there is a very small skin tear noted. No active drainage at this time, but did return gauze padding to skin then replaced RONAL hose. Patient reports that her skin feels very dry and scaly. Educated patient on importance of keeping skin soft and supple as to reduce risk of skin tears or other breaks in the skin that can lead to cellulitis or venous ulcers. and patient verbalized understanding. Plan Continue covering left posterior thigh to collect drainage changing daily. Continue to cover left lower leg with gauze prior to RONAL hose application daily. Lac-Hydrin lotion to BLE intact skin daily. Elevated legs as much as possible. I am unable to take photos for this patient due to techincal problems. Photos to be taken by med/surg floor nurses. Please call [phone] with any questions/concerns. Ervin Matute, STEPHANN, RN, CWON
[2023-10-16 16:09] LABS: Glucometer 228 mg/dL (74-106)
[2023-10-16] MEDS: ACETAMINOPHEN 500 MG TABLET 1000 MG PO (18:32)
[2023-10-16 20:25] LABS: Glucometer 232 mg/dL (74-106)
[2023-10-16] MEDS: ATORVASTATIN CALCIUM 10 MG TABLET PO (21:26)
[2023-10-16] MEDS: DOXEPIN HCL 25 MG CAPSULE PO (21:30)
[2023-10-17] VITALS (24 sets, daily range): BP systolic 113–153; BP diastolic 73–83; PULSE 86–140; RESP 16–22; TEMP 36.3–36.6; O2SAT 88–94
[2023-10-17] MEDS: METHYLPREDNISOLONE SOD SUCC PF 40 MG/ML VIAL IVP ×4 (02:52→23:48)
[2023-10-17 04:25] LABS: Basophils Percent Auto 0.1 % (0.2-2.0); Hematocrit 30.1 % (36.0-48.0); Hemoglobin 9.5 g/dL (12.0-16.0); Immature Granulocytes Abs Auto 0.14 10^3/uL (0.00-0.03); Immature Granulocytes Pct Auto 1.1 % (0.0-0.5); Lymphocytes Percent Auto 7.9 % (20.5-60.0); Mean Corpuscular HGB Conc 31.6 g/dL (29.9-35.2); Mean Corpuscular Hemoglobin 30.6 pg (26.7-34.0); Mean Corpuscular Volume 97.1 fL (81.0-99.0); Mean Platelet Volume 9.7 fL (9.5-13.5); Monocytes Absolute Auto 0.5 10^3/uL (0.3-0.8); Neutrophils Absolute Auto 11.3 10^3/uL (1.4-6.5); Neutrophils Percent Auto 86.9 % (43.0-75.0); Platelet Count 258 10^3/uL (150-450); Red Cell Distribution Width 17.2 % (11.0-15.0)
[2023-10-17 04:53] LABS: Alanine Aminotransferase 30 U/L (14-59); Albumin Globulin Ratio 0.6; Albumin Level 2.4 g/dL (3.4-5.0); Alkaline Phosphatase 90 U/L (46-116); Anion Gap 11.5; Aspartate Amino Transferase 22 U/L (15-37); BUN Creatinine Ratio 34.5; Bilirubin Total 0.3 mg/dL (0.2-1.0); Calcium 9.2 mg/dL (8.5-10.1); Carbon Dioxide 30.9 mmol/L (21.0-32.0); Chloride 100 mmol/L (98-107); Estimated GFR (African America 29 (>=60); Estimated GFR (Non-African Ame 24 (>=60); Globulin 4.1 g/dL; Glucose 215 mg/dL (74-106); Potassium 4.4 mmol/L (3.5-5.1); Sodium 138 mmol/L (136-145); Total Protein 6.5 g/dL (6.4-8.2)
[2023-10-17] MEDS: IPRATROPIUM/ALBUTEROL SULFATE 3 ML AMPUL.NEB IH (04:53)
[2023-10-17] MEDS: SUCRALFATE 1 GM TABLET PO ×3 (06:00→22:31)
[2023-10-17] MEDS: LEVOTHYROXINE SODIUM 112 MCG TABLET PO (06:00)
[2023-10-17] MEDS: HYDRALAZINE HCL 50 MG TABLET 100 MG PO ×2 (06:00→13:18)
[2023-10-17] MEDS: BENZONATATE 100 MG CAPSULE PO ×3 (06:00→22:49)
[2023-10-17 07:47] LABS: Glucometer 257 mg/dL (74-106)
--- NOTE | 2023-10-17 08:49 | P.PN_ITS ---
Progress Note: Subjective Subjective Interval history: Still with significant dyspnea and tachycardia with activity. Overall she feels somewhat improved. Swelling of legs is definitely improved. Exam Constitutional Vital Signs, click to edit/add: Last Vital Signs Temp 97.9 F 10/17/23 07:51 Pulse 114 H 10/17/23 08:03 Resp 16 10/17/23 07:51 BP 122/80 10/17/23 07:51 Pulse Ox 92 L 10/17/23 08:03 O2 Del Method Nasal Cannula 10/17/23 07:51 O2 Flow Rate 3 10/17/23 07:51 Documenting provider has reviewed patient's vital signs: yes Common normals: apparent distress (Outcome stational dyspnea) HENMT Common normals: normocephalic and head/scalp atraumatic Chest Common normals: inspection of chest normal Respiratory Common normals: abnormal respiratory effort (Mild dyspnea) Auscultation: rales (Bases -removed aeration) and wheezes (Diffuse -improved aeration) Cardio Common normals: regular rate Rhythm: abnormal rhythm GI Common normals: Normal to inspection, nondistended, normoactive bowel sounds present Extremity Common normals: abnormal to inspection (2+ Bilateral lower extremity edema, cellulitis left thigh.) Neuro Common normals: CN's II-XII intact bilaterally and moves all extremities Progress Note: Objective Labs Labs: Short CBC 10/17/23 Range/Units 03:57 WBC 13.0 H (4.0-11.0) 10^3/uL Hgb 9.5 L (12.0-16.0) g/dL Hct 30.1 L (36.0-48.0) % Plt Count 258 (150-450) 10^3/uL BMP 10/17/23 03:57 Sodium 138 Potassium 4.4 Chloride 100 Carbon Dioxide 30.9 BUN 68.0 H Creatinine 1.97 H Glucose 215 H Calcium 9.2 Liver Function 10/17/23 Range/Units 03:57 Total Bilirubin 0.3 (0.2-1.0) mg/dL AST 22 (15-37) U/L ALT 30 (14-59) U/L Alkaline Phosphatase 90 (46-116) U/L Albumin 2.4 L (3.4-5.0) g/dL Progress Note: A&P Assessment and Plan (1) CHF (congestive heart failure): Assessment and Plan: Overall edema is improving. Continue with current treatment plan (2) Hypoxia: Assessment and Plan: Secondary to acute incontinence combined congestive heart failure-since able to be weaned off of supplemental oxygen today. (3) Atrial fibrillation: Assessment and Plan: Anticoagulated rate controlled Qualifiers: Atrial fibrillation type: longstanding persistent Qualified Code(s): I48.11 - Longstanding persistent atrial fibrillation (4) COPD (chronic obstructive pulmonary disease): Assessment and Plan: On antibiotics for the cellulitis. No sputum production Qualifiers: COPD type: unspecified COPD Qualified Code(s): J44.9 - Chronic obstructive pulmonary disease, unspecified (5) Hypothyroidism (acquired): Assessment and Plan: Continue to treat (6) Iron deficiency anemia: Assessment and Plan: Monitor daily Qualifiers: Iron deficiency anemia type: unspecified iron deficiency Qualified Code(s): D50.9 - Iron deficiency anemia, unspecified (7) Type 2 diabetes mellitus: Assessment and Plan: Insulin sliding scale Qualifiers: Diabetes mellitus complication status: without complication Diabetes mellitus 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 insulin use: without 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 use Qualified Code(s): E11.9 - Type 2 diabetes mellitus without complications (8) CAD, multiple vessel: Assessment and Plan: No chest pain (9) Moderate protein-calorie malnutrition: Assessment and Plan: Supplement (10) Hyperkalemia: Assessment and Plan: Improved (11) Cellulitis and abscess of left leg: Assessment and Plan: Wound therapy to evaluate-maintain current and Plan Likely 1 more day hospitalization. If be weaned off of supplemental oxygen and no progression in her cellulitis she could be discharged tomorrow
--- NOTE | 2023-10-17 09:25 | CM.NOTE ---
Rounds made with Dr. Hoy. Hammer in chair upon arrival. Attempt to wean oxygen today. No plan for discharge.
[2023-10-17] MEDS: METOPROLOL SUCCINATE 100 MG TAB.ER.24H 200 MG PO (09:31)
[2023-10-17] MEDS: ACETAMINOPHEN 500 MG TABLET 1000 MG PO (09:32)
[2023-10-17] MEDS: GLIMEPIRIDE 2 MG TABLET 4 MG PO ×2 (09:32→22:30)
[2023-10-17] MEDS: ISOSORBIDE MONONITRATE 30 MG TAB.ER.24H PO (09:32)
[2023-10-17] MEDS: FERROUS SULFATE 325 MG TABLET PO ×2 (09:32→22:31)
[2023-10-17] MEDS: FLUCONAZOLE 100 MG TABLET PO (09:33)
[2023-10-17] MEDS: AMLODIPINE BESYLATE 5 MG TABLET PO (09:33)
[2023-10-17] MEDS: LIOTHYRONINE SODIUM 5 MCG TABLET 10 MCG PO (09:33)
[2023-10-17] MEDS: APIXABAN 5 MG TABLET 2.5 MG PO ×2 (09:34→22:30)
[2023-10-17] MEDS: ENSURE HP 237 ML LIQUID PO (09:35)
[2023-10-17] MEDS: PANTOPRAZOLE SODIUM 40 MG VIAL IV (09:35)
[2023-10-17] MEDS: INSULIN DETEMIR 300 UNIT/3 ML INSULN.PEN 10 UNIT SQ (09:44)
[2023-10-17] MEDS: INSULIN ASPART 300 UNIT/3 ML PEN SUBQ ×4 (09:51→22:51)
[2023-10-17] MEDS: LEVOFLOXACIN IN DEXTROSE 5 % 500 MG/100 ML PIGGYBACK 100 MG IV (09:57)
--- NOTE | 2023-10-17 10:39 | SWNOTE1 ---
SW received call from pt's daughter, Millie, and she spoke to her mom earlier and they would like her to complete a HCPOA. SW to stop in room today and complete with pt.
[2023-10-17] MEDS: LEVALBUTEROL HCL 0.63 MG/3 ML VIAL.NEB IH ×3 (11:09→22:56)
[2023-10-17] MEDS: IPRATROPIUM BROMIDE 0.5 MG/2.5 ML VIAL.NEB IH ×3 (11:10→22:56)
[2023-10-17] MEDS: PIPERACILLIN SODIUM/TAZOBACTAM 3.375 GM in 0.9 % SODIUM CHLORIDE 50 ML IV ×2 (11:15→22:31)
[2023-10-17 11:42] LABS: Glucometer 415 mg/dL (74-106)
--- NOTE | 2023-10-17 11:42 | PT.DAILY ---
Physical Therapy Daily Note PT Daily Note/Assess Start: 10/17/23 11:33 Freq: Status: Active Protocol: Document 10/17/23 09:55 MAXINE (Rec: 10/17/23 11:42 [id number]) Physical Therapy Daily Note/Assessment Time In/Time Out Time In 09:55 Time Out 10:10 Pain In Pain Level 9 Pain Out Pain Level 8 Subjective Subjective Woke up this morning and felt good, walked to bathroom with nursing, and then up in chair for breakfast. When sitting all of the sudden neck started to get stiff and hurt with radiating pain down into R arm . Nursing got her an ice pack and she is currently using that. Does agree to PT, I want to show you how good I can walk. Therapeutic Exercise Time Therapeutic Exercise Minutes (minutes) 7 Therapeutic Exercise Units 0 Therapeutic Exercise Treatment Therapeutic Exercise Treatment Exercises as follows for B LE strength and posture: -Shoulder shrugs 10x -Shoulder rolls 10x -Scapular retraction isometric 10x 5 sec hold -Seated TR/HR 10x -Seated Marches 10x -Seated LAQ 10x -Seated Pillow squeeze 10x -Seated MRE with hip abduction 10x SPO2 maintained at 92 percent on 2 LO2 with exercises. Therapeutic Activity Time Therapeutic Activity Minutes (minutes) 8 Therapeutic Activity Units 1 Therapeutic Activity Treatment Therapeutic Activity Comments Sit to stand at RW SBA. Gait 40 ft. with RW SBA. Patient took 1 standing rest break. Reports feeling shaky but moves slow, no LOB. SPO2 was 86 percent post ambulation. Instructed patient in breathing exercises with use of 2 LO2 and SPO2 back to 92 percent within 2 min of seated rest break. Total Physical Therapy Time Total Therapy Minutes 15 Total Physical Therapy Units 1 Summary Daily Note Summary Patient fatigues quickly with ambulation therefore distance is limited. SPO2 levels did decreased, but was able to quickly recover with breathing exercises and rest break. Progressed exercises to include posture exercises to assist with upper back and neck pain. Patient complains of high pain levels in neck and arm but that was not a limiting factor with PT program today. Would continue to recommend return to SNF for further PT to regain functional strength and endurance prior to return home .
--- NOTE | 2023-10-17 15:36 | SWNOTE1 ---
Updated physician notes, labs, PT/OT, vitals, and med list sent to [facility].
--- NOTE | 2023-10-17 15:39 | SWNOTE1 ---
SW also notified [place] that she may need oxygen at discharge.
[2023-10-17 16:14] LABS: Glucometer 228 mg/dL (74-106)
[2023-10-17 20:21] LABS: Glucometer 237 mg/dL (74-106)
[2023-10-17] MEDS: DOXEPIN HCL 25 MG CAPSULE PO (22:30)
[2023-10-17] MEDS: ATORVASTATIN CALCIUM 10 MG TABLET PO (22:30)
[2023-10-18] VITALS (13 sets, daily range): BP systolic 118; BP diastolic 75–79; PULSE 84–112; RESP 18–24; TEMP 36.6; O2SAT 92–98
[2023-10-18] MEDS: IPRATROPIUM BROMIDE 0.5 MG/2.5 ML VIAL.NEB IH ×2 (04:51→10:26)
[2023-10-18] MEDS: LEVALBUTEROL HCL 0.63 MG/3 ML VIAL.NEB IH ×2 (04:51→10:26)
[2023-10-18] MEDS: HYDRALAZINE HCL 50 MG TABLET 100 MG PO (06:16)
[2023-10-18] MEDS: SUCRALFATE 1 GM TABLET PO ×2 (06:16→11:51)
[2023-10-18] MEDS: LEVOTHYROXINE SODIUM 112 MCG TABLET PO (06:16)
[2023-10-18] MEDS: BENZONATATE 100 MG CAPSULE PO (06:17)
[2023-10-18 06:20] LABS: Basophils Percent Auto 0.1 % (0.2-2.0); Hematocrit 31.2 % (36.0-48.0); Hemoglobin 9.8 g/dL (12.0-16.0); Immature Granulocytes Abs Auto 0.29 10^3/uL (0.00-0.03); Immature Granulocytes Pct Auto 2.4 % (0.0-0.5); Lymphocytes Absolute Auto 1.2 10^3/uL (1.2-3.8); Mean Corpuscular HGB Conc 31.4 g/dL (29.9-35.2); Mean Corpuscular Hemoglobin 30.6 pg (26.7-34.0); Mean Corpuscular Volume 97.5 fL (81.0-99.0); Mean Platelet Volume 9.8 fL (9.5-13.5); Monocytes Absolute Auto 0.6 10^3/uL (0.3-0.8); Monocytes Percent Auto 4.7 % (1.7-12.0); Neutrophils Percent Auto 82.8 % (43.0-75.0); Platelet Count 258 10^3/uL (150-450); Red Cell Distribution Width 17.3 % (11.0-15.0)
[2023-10-18 06:47] LABS: Alanine Aminotransferase 50 U/L (14-59); Albumin Globulin Ratio 0.7; Albumin Level 2.6 g/dL (3.4-5.0); Alkaline Phosphatase 96 U/L (46-116); Anion Gap 12.8; Aspartate Amino Transferase 47 U/L (15-37); BUN Creatinine Ratio 40.1; Bilirubin Total 0.3 mg/dL (0.2-1.0); Calcium 9.2 mg/dL (8.5-10.1); Carbon Dioxide 28.3 mmol/L (21.0-32.0); Chloride 102 mmol/L (98-107); Estimated GFR (African America 33 (>=60); Estimated GFR (Non-African Ame 28 (>=60); Globulin 3.8 g/dL; Glucose 159 mg/dL (74-106); Potassium 4.1 mmol/L (3.5-5.1); Sodium 139 mmol/L (136-145); Total Protein 6.4 g/dL (6.4-8.2)
[2023-10-18 08:13] LABS: Glucometer 174 mg/dL (74-106)
--- NOTE | 2023-10-18 09:30 | P.DS_ITS ---
DS: Providers Provider Date of admission: 10/14/23 22:09 Primary care physician: Gil Blake MD Consults: 10/15/23 09:50 Consult to Wound Care Routine Consulting Provider: Ervin Matute Reason for consultation: Left leg Has provider been notified: No 10/16/23 08:18 Occupational Therapy Eval and Treat Routine Reason for consultation: if needed for rehab Has provider been notified: No Physical Therapy Eval and Treat Routine Reason for consultation: eval Has provider been notified: No DS: Diagnosis Discharge Diagnosis (1) CHF (congestive heart failure): (2) Hypoxia: (3) Atrial fibrillation: Qualifiers: Atrial fibrillation type: longstanding persistent Qualified Code(s): I48.11 - Longstanding persistent atrial fibrillation (4) COPD (chronic obstructive pulmonary disease): Qualifiers: COPD type: unspecified COPD Qualified Code(s): J44.9 - Chronic obstructive pulmonary disease, unspecified (5) Hypothyroidism (acquired): (6) Iron deficiency anemia: Qualifiers: Iron deficiency anemia type: unspecified iron deficiency Qualified Code(s): D50.9 - Iron deficiency anemia, unspecified (7) Type 2 diabetes mellitus: Qualifiers: Diabetes mellitus complication status: without complication Diabetes mellitus technician terminal and repeater insulin use: without correction use Qualified Code(s): E11.9 - Type 2 diabetes mellitus without complications (8) CAD, multiple vessel: (9) Moderate protein-calorie malnutrition: (10) Hyperkalemia: (11) Cellulitis and abscess of left leg: DS: Summary Hospital Course Hospital Course: I had seen patient on rounds at the senior care, she has some increased edema that morning. But that progressed and was worse throughout the day. Patient was admitted through the ER with acute combined congestive heart failure as well as deterioration of cellulitis of her lower extremity with open wound. The wound team saw the patient. Patient diuresed well over the first couple days. Also felt to have a flareup of her acute exacerbation of COPD. Antibiotics to cover her lungs and leg infection. Patient was slow to improve. Unable to wean her off of supplemental oxygen but she is stable now 1 to 2 L. With the stability in the closely monitoring that she can receive at the senior care she will be discharged to the senior care with oral antibiotics and tapering doses of steroids, maintain her current diuresis with oral agents. She is overall i mproved. I will follow patient in senior care, medications see list. Time Spent with Patient Time attestation: Total time spent providing and/or coordinating discharge services: Time spent: greater than 30 minutes Exam Constitutional Vital Signs, click to edit/add: Last Vital Signs Temp 97.9 F 10/18/23 04:56 Pulse 112 H 10/18/23 08:00 Resp 22 10/18/23 08:00 BP 118/79 10/18/23 04:56 Pulse Ox 94 L 10/18/23 08:00 O2 Del Method Nasal Cannula 10/18/23 04:56 O2 Flow Rate 2 10/18/23 04:56 Documenting provider has reviewed patient's vital signs: yes Common normals: apparent distress (Outcome stational dyspnea) HENMT Common normals: normocephalic and head/scalp atraumatic Chest Common normals: inspection of chest normal Respiratory Common normals: abnormal respiratory effort (Mild dyspnea) Auscultation: rales (Bases -removed aeration) and wheezes (Diffuse -improved aeration) Cardio Common normals: regular rate Rhythm: abnormal rhythm GI Common normals: Normal to inspection, nondistended, normoactive bowel sounds present Extremity Common normals: abnormal to inspection (2+ Bilateral lower extremity edema, cellulitis left thigh.) Neuro Common normals: CN's II-XII intact bilaterally and moves all extremities DS: Data Data Completed and Pending Labs on day of discharge: Labs from last 24 hours 10/18/23 10/18/23 10/17/23 08:10 05:43 20:18 WBC 12.0 H RBC 3.20 L Hgb 9.8 L Hct 31.2 L MCV 97.5 MCH 30.6 MCHC 31.4 RDW 17.3 H Plt Count 258 MPV 9.8 Neut % (Auto) 82.8 H Lymph % (Auto) 10.0 L Stephenson % (Auto) 4.7 Eos % (Auto) 0.0 L Baso % (Auto) 0.1 L Neut # (Auto) 10.0 H Lymph # (Auto) 1.2 Stephenson # (Auto) 0.6 Eos # (Auto) 0.0 Baso # (Auto) 0.0 Abs Immat Gran (auto) 0.29 H Imm/Tot Granulo (auto) 2.4 H Sodium 139 Potassium 4.1 Chloride 102 Carbon Dioxide 28.3 Anion Gap 12.8 BUN 71.0 H Creatinine 1.77 H Est GFR ( Amer) 33 L Est GFR (Non-Af Amer) 28 L BUN/Creatinine Ratio 40.1 Glucose 159 H Calcium 9.2 Total Bilirubin 0.3 AST 47 H ALT 50 Alkaline Phosphatase 96 NT-Pro-B Natriuret Pep 5861.0 H* Total Protein 6.4 Albumin 2.6 L Globulin 3.8 Albumin/Globulin Ratio 0.7 POC Glucose 174 H 237 H 10/17/23 10/17/23 16:12 11:40 WBC RBC Hgb Hct MCV MCH MCHC RDW Plt Count MPV Neut % (Auto) Lymph % (Auto) Stephenson % (Auto) Eos % (Auto) Baso % (Auto) Neut # (Auto) Lymph # (Auto) Stephenson # (Auto) Eos # (Auto) Baso # (Auto) Abs Immat Gran (auto) Imm/Tot Granulo (auto) Sodium Potassium Chloride Carbon Dioxide Anion Gap BUN Creatinine Est GFR ( Amer) Est GFR (Non-Af Amer) BUN/Creatinine Ratio Glucose Calcium Total Bilirubin AST ALT Alkaline Phosphatase NT-Pro-B Natriuret Pep Total Protein Albumin Globulin Albumin/Globulin Ratio POC Glucose 228 H 415 H Preliminary micro results at discharge 10/15/23 20:50 Wound Culture - Preliminary Leg - Left 10/14/23 21:38 - Preliminary Blood NO GROWTH AT 36-48 HOURS. FINAL TO FOLLOW. 10/14/23 20:23 Blood Culture Result 1 - Preliminary Blood - Left NO GROWTH AT 36-48 HOURS. FINAL TO FOLLOW. Discharge Plan Discharge Disposition: Home, Self-Care Discharge Medications: New isosorbide mononitrate 30 mg Tablet Extended Release 24 Hr 30 mg PO QD Qty: 30 11RF prednisone 10 mg tablet 50 mg PO DAILY Qty: 47 0RF Rx Instructions: 5/day for 3 days. 4/day for 3 days, 3/day for 3 days, 2/day for 3 days, 1/day for 3 days, 1/2 /day for 4 days amoxicillin-pot clavulanate 875-125 mg tablet 1 tab PO Q12H Qty: 20 0RF Continued albuterol sulfate 2.5 mg /3 mL (0.083 %) solution for nebulization 2.5 mg inhalation Q4H PRN (Reason: shortness of breath or wheezing) albuterol sulfate 90 mcg/actuation HFA aerosol inhaler 2 puff INHALATION Q4H PRN (Reason: shortness of breath or wheezing) amlodipine 5 mg tablet 10 mg PO DAILY anastrozole 1 mg tablet 1 mg PO DAILY aspirin [Adult Low Dose Aspirin] 81 mg tablet,delayed release (DR/EC) 81 mg PO DAILY Eliquis 5 mg tablet 5 mg PO BID furosemide 40 mg tablet 40 mg PO Q12H glimepiride 4 mg tablet 4 mg PO BID hydralazine 100 mg tablet 100 mg PO TID Patient Comments: IF BP OVER 130 isosorbide mononitrate 60 mg tablet extended release 24 hr 60 mg PO DAILY levothyroxine 112 mcg tablet 112 mcg PO DAILY liothyronine 5 mcg tablet 10 mcg PO DAILY metformin 500 mg tablet 500 mg PO BID metoprolol succinate 200 mg tablet extended release 24 hr 200 mg PO DAILY simvastatin 20 mg tablet 20 mg PO BEDTIME sucralfate 1 gram tablet 1 g PO QID febuxostat 40 mg tablet 40 mg PO DAILY potassium chloride [Klor-Con M20] 20 mEq tablet,ER particles/crystals 20 meq PO BID fluconazole 100 mg Tablet 100 mg PO QD Qty: 10 0RF ferrous sulfate 325 mg (65 mg iron) Tablet 325 mg PO BID Qty: 60 11RF insulin glargine [Lantus U-100 Insulin] 100 unit/mL solution 10 unit subcut QAM cephalexin 500 mg capsule 500 mg PO Q6H Patient Comments: from 10/10/23-thru 10/19/23 doxycycline hyclate 100 mg capsule 100 mg PO BID Patient Comments: 10/10-10/19/23 insulin aspart U-100 [Novolog FlexPen U-100 Insulin] 100 unit/mL (3 mL) Insulin Pen 3 - 15 unit subcut ACHS [employer] Developer/[employer] Instructions: Discharge to [facility] skilled Forms: Portal Instructions Discharge Date/Time: 10/18/23 13:58
[2023-10-18] MEDS: INSULIN DETEMIR 300 UNIT/3 ML INSULN.PEN 10 UNIT SQ (09:46)
[2023-10-18] MEDS: INSULIN ASPART 300 UNIT/3 ML PEN SUBQ ×2 (09:47→11:50)
[2023-10-18] MEDS: GLIMEPIRIDE 2 MG TABLET 4 MG PO (09:48)
[2023-10-18] MEDS: ISOSORBIDE MONONITRATE 30 MG TAB.ER.24H PO (09:49)
[2023-10-18] MEDS: METOPROLOL SUCCINATE 100 MG TAB.ER.24H 200 MG PO (09:49)
[2023-10-18] MEDS: LIOTHYRONINE SODIUM 5 MCG TABLET 10 MCG PO (09:50)
[2023-10-18] MEDS: AMLODIPINE BESYLATE 5 MG TABLET PO (09:50)
[2023-10-18] MEDS: METHYLPREDNISOLONE SOD SUCC PF 40 MG/ML VIAL IVP (09:50)
[2023-10-18] MEDS: PANTOPRAZOLE SODIUM 40 MG VIAL IV (09:50)
[2023-10-18] MEDS: APIXABAN 5 MG TABLET 2.5 MG PO (09:51)
[2023-10-18] MEDS: FERROUS SULFATE 325 MG TABLET PO (09:51)
[2023-10-18] MEDS: ENSURE HP 237 ML LIQUID PO (09:52)
[2023-10-18] MEDS: FLUCONAZOLE 100 MG TABLET PO (09:52)
[2023-10-18] MEDS: PIPERACILLIN SODIUM/TAZOBACTAM 3.375 GM in 0.9 % SODIUM CHLORIDE 50 ML IV (09:52)
--- NOTE | 2023-10-18 10:04 | CM.NOTE ---
Important Message from Medicare discharge reviewed with Ms. Horta. No questions or concerns.
[2023-10-18 11:21] LABS: Glucometer 381 mg/dL (74-106)
[2023-10-18] MEDS: ACETAMINOPHEN 500 MG TABLET 1000 MG PO (11:51)
--- NOTE | 2023-10-18 12:15 | SWNOTE1 ---
Pt is able to be discharged today back to [facility]. [facility] set up trips for 1:45pm. [facility] notified [facility] of time. [facility] sent over finalized discharge med rec. SHARRI put packet on the med surge floor for nursing.
--- NOTE | 2023-10-18 12:16 | SWNOTE1 ---
[facility] notified pt of time as well. SW let pt know that SW did not have a chance to complete HCPOA with pt, but told her she will try to come back once I get her discharge information sent to [facility] and other discharges set up. If [facility] is not able to then will let [facility] know.
--- NOTE | 2023-10-18 14:14 | SWNOTE1 ---
[facility] was able to complete HCPOA with pt. SW placed copy in chart and sent copy with pt to [facility]. Pt kept original booklet.
== END 2023-10-18 13:58 | DRG 292 ==
LOC: ER 21:21 → MS 23:02
PROVIDERS: Nurse Practitioner Acute Care; Admitting Provider Family Medicine; Emergency Provider Emergency Medicine; PCP Family Medicine; Visit Provider Family Medicine
DX: I50.41 Acute combined systolic (congestive) and diastolic (congestive) heart failure (principal); E44.0 Moderate protein-calorie malnutrition; I48.11 Longstanding persistent atrial fibrillation; L03.116 Cellulitis of left lower limb; L02.416 Cutaneous abscess of left lower limb; J44.1 Chronic obstructive pulmonary disease with (acute) exacerbation; E11.628 Type 2 diabetes mellitus with other skin complications; R09.02 Hypoxemia; E03.9 Hypothyroidism, unspecified; D50.9 Iron deficiency anemia, unspecified; I25.10 Atherosclerotic heart disease of native coronary artery without angina pectoris; Z68.37 Body mass index [BMI] 37.0-37.9, adult; E87.5 Hyperkalemia; Z79.899 Other long term (current) drug therapy; Z79.4 Long term (current) use of insulin; Z79.890 Hormone replacement therapy; Z79.84 Long term (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 oral hypoglycemic drugs; Z79.01 Long term (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; Z87.891 Personal history of nicotine dependence; Z90.49 Acquired absence of other specified parts of digestive tract; Z95.5 Presence of coronary angioplasty implant and graft; Z90.710 Acquired absence of both cervix and uterus; Z99.81 Dependence on supplemental oxygen; Z79.82 Long term (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 aspirin; Z66 Do not resuscitate
CPT/HCPCS: 0202U; 36415; 71045; 74022; 80053; 81003; 82800; 82948; 83605; 83880; 84145; 84484; 85025; 85610; 85730; 87040; 87070; 87205; 93005; 93308; 94640; 94667; 94668; 94761; 96365; 96366; 96367; 96368; 96375; 96376; 97162; 97165; 97530; 99285; J1940; J2405; J2543; J2920; J2930

== ENCOUNTER 2024-02-13 11:23 | Inpatient (IN) | payer MEDICARE, OTHER, SELFPAY ==
[2024-02-13] VITALS (50 sets, daily range): BP systolic 97–136; BP diastolic 55–91; PULSE 75–106; TEMP 36.1–36.7; O2SAT 75–99; BMI 34.7; BMI 44.6
--- NOTE | 2024-02-13 12:08 | PC.NURSE ---
patient arrives with granddaughter. granddaughter states they were at [facility] wound care and the doctor told them, go to the ER, they can get you seen a lot quicker than we can here. Patient reports pain to right buttocks-area of firmness noted to right buttock, redness noted to area. Patient states the area has been bothering her for a few weeks and that she did have some areas on the left buttocks that healed up from being placed in a wheelchair for hours at a time while at the [facility]. Patient denies fevers but states the area is very sore. no open areas noted to buttocks
--- NOTE | 2024-02-13 12:28 | XR_ITS ---
The [address] [address] Patient Name: OSCAR MCLEOD MRN: [id number] date: 1940 Sex: F Assigned Patient Location: ER Current Patient Location: ED.MAIN Accession/Order Number: [id number] Exam Date: 02/13/2024 12:50 Report Date: 02/13/2024 13:09 At the request of: SANDRA GUADARRAMA Procedure: XR chest 1V EXAMINATION: XR chest 1V HISTORY: Shortness of breath COMPARISON: XR chest 10/14/2023 FINDINGS: LUNGS: Elevated right hemidiaphragm. Mild haziness within mid and lower right lung and left lung base. VASCULATURE: No increased pulmonary vasculature. PLEURA: No pneumothorax, effusion, or pleural thickening. CARDIAC: Cardiomegaly. MEDIASTINUM: No visible mass or adenopathy. BONES: Degenerative changes of the glenohumeral joints. OTHER: Negative. XR/XR chest 1V IMPRESSION: 1. Moderate bibasilar infiltrates versus atelectasis; slightly greater than previously seen. 2. Grossly stable cardiomegaly. Electronically authenticated by: ALFONSO GEORGE Date: 02/13/2024 13:09
--- NOTE | 2024-02-13 12:28 | CT_ITS ---
The [address] [address] Patient Name: OSCAR MCLEOD MRN: [id number] date: 1940 Sex: F Assigned Patient Location: ER Current Patient Location: ER Accession/Order Number: [id number] Exam Date: 02/13/2024 13:57 Report Date: 02/13/2024 15:14 At the request of: SANDRA GUADARRAMA Procedure: CT pelvis w con EXAMINATION: CT pelvis w con HISTORY: Right buttock abscess COMPARISON: CT pelvis 08/22/2023 TECHNIQUE: After obtaining the patient's consent, CT images of the pelvis were obtained with non-ionic contrast. Multi-planar/3-D images were created to optimize visualization of vascular anatomy. Dose reduction techniques were achieved by using automated exposure control and/or adjustment of mA and/or kV according to patient size and/or use of iterative reconstruction technique. FINDINGS: AORTO-ILIAC: No aneurysm or dissection. URINARY BLADDER: No visible focal wall thickening, lesion, or calculus. LYMPH NODES: No adenopathy. BOWL: Diverticula scattered along visible segments of colon without acute inflammatory changes. PELVIC ORGANS: No visible mass. Pelvic organs appropriate for patient age. BONES: No bony lesion or fracture. OTHER: Abscess within lower right gluteus extending from skin surface to the ischial tuberosity, 5.6 x 4.8 x 4.[address]/CT pelvis w con IMPRESSION: 1. Large right gluteal abscess. This appears to contact the ischial tuberosity but no appreciable periosteal reaction or osteomyelitis. Electronically authenticated by: ALFONSO GEORGE Date: 02/13/2024 15:14
--- NOTE | 2024-02-13 12:28 | ECG_ITS ---
The [facility] Test Date: 2024-02-13 Pat Name: OSCAR MCLEOD Department: Room: - Gender: Female Account Services Specialist: : 1940 Requested By: [id number] Order Number: [id number] Reading MD: MATEUS PERRY Measurements Intervals [place] Rate: 89 P: -[id number] GA: -[id number] QRS: 44 QRSD: 132 T: 187 QT: 414 QTc: 460 Interpretive Statements 1210 Atrial fibrillation 2330 Nonspecific intraventricular conduction block 3434 Septal myocardial infarction, age undetermined 0102 ARTIFACT PRESENT 9150 abnormal ECG No previous ECG available for comparison
[2024-02-13 12:41] LABS: Basophils Percent Auto 0.2 % (0.2-2.0); Eosinophils Absolute Auto 0.1 10^3/uL (0.0-0.7); Eosinophils Percent Auto 0.6 % (0.9-7.0); Hematocrit 37.1 % (36.0-48.0); Hemoglobin 11.5 g/dL (12.0-16.0); Immature Granulocytes Abs Auto 0.13 10^3/uL (0.00-0.03); Immature Granulocytes Pct Auto 0.8 % (0.0-0.5); Lymphocytes Absolute Auto 1.7 10^3/uL (1.2-3.8); Lymphocytes Percent Auto 10.5 % (20.5-60.0); Mean Corpuscular Volume 93.7 fL (81.0-99.0); Mean Platelet Volume 9.4 fL (9.5-13.5); Monocytes Absolute Auto 1.3 10^3/uL (0.3-0.8); Monocytes Percent Auto 8.1 % (1.7-12.0); Neutrophils Percent Auto 79.8 % (43.0-75.0); Platelet Count 459 10^3/uL (150-450); Red Blood Count 3.96 10^6/uL (4.20-5.40); Red Cell Distribution Width 14.5 % (11.0-15.0); White Blood Count 16.3 10^3/uL (4.0-11.0)
[2024-02-13] MEDS: 0.9 % SODIUM CHLORIDE 1,000 ML 1000 ML IV (12:45)
--- NOTE | 2024-02-13 12:51 | ED.GENADUL1 ---
HPI HPI - General Adult General Chief complaint: Recheck/Abnormal Lab/Rx Stated complaint: WOUND CHECK Time Seen by Provider: 02/13/24 11:40 Source: patient Mode of arrival: Wheelchair History of Present Illness HPI narrative: Patient presents to ED complaining of pain in the right buttock. She has a history of multiple wounds on her legs and now she thinks she has an abscess on the right buttock area. Family states she seemed more confused than normal and she was also hypoxic on arrival. She does have a history of having some breathing difficulties and when she was discharged from the [facility] [place] she did go home on oxygen for period of time. She is not on oxygen anymore but she says it is hard for her to lay flat due to her breathing. She was concerned with the pain and swelling in the right buttock area and thinks that she may have an infection. She denies fevers nausea or vomiting. She does have some baseline confusion. Related Data Home Medications ?Medication ?Instructions ?Recorded ?Confirmed albuterol sulfate 2.5 mg/3 mL 2.5 mg inhalation Q4H PRN 03/04/23 10/17/23 (0.083 %) solution for nebulization shortness of breath or wheezing albuterol sulfate 90 mcg/actuation 2 puff inhalation Q4H PRN 03/04/23 10/14/23 aerosol inhaler shortness of breath or wheezing amlodipine 5 mg tablet 10 mg PO DAILY 03/04/23 10/17/23 anastrozole 1 mg tablet 1 mg PO DAILY 03/04/23 10/14/23 apixaban 5 mg tablet (Eliquis) 5 mg PO BID 03/04/23 10/14/23 aspirin 81 mg tablet,delayed 81 mg PO DAILY 03/04/23 10/17/23 release (Adult Low Dose Aspirin) furosemide 40 mg tablet 40 mg PO Q12H 03/04/23 10/14/23 glimepiride 4 mg tablet 4 mg PO BID 03/04/23 10/14/23 hydralazine 100 mg tablet 100 mg PO TID 03/04/23 10/14/23 isosorbide mononitrate 60 mg 60 mg PO DAILY 03/04/23 10/14/23 tablet,extended release 24 hr levothyroxine 112 mcg tablet 112 mcg PO DAILY 03/04/23 10/14/23 liothyronine 5 mcg tablet 10 mcg PO DAILY 03/04/23 10/14/23 metformin 500 mg tablet 500 mg PO BID 03/04/23 10/14/23 metoprolol succinate 200 mg 200 mg PO DAILY 03/04/23 10/14/23 tablet,extended release 24 hr simvastatin 20 mg tablet 20 mg PO BEDTIME 03/04/23 10/14/23 sucralfate 1 gram tablet 1 g PO QID 03/04/23 10/14/23 febuxostat 40 mg tablet 40 mg PO DAILY 08/20/23 10/14/23 potassium chloride 20 mEq 20 meq PO BID 08/20/23 10/14/23 tablet,extended release(part/cryst) (Klor-Con M) cephalexin 500 mg capsule 500 mg PO Q6H 10/14/23 10/14/23 doxycycline hyclate 100 mg capsule 100 mg PO BID 10/14/23 10/14/23 insulin glargine 100 unit/mL 10 unit subcut QAM 10/14/23 10/14/23 subcutaneous solution (Lantus U-100 Insulin) insulin aspart U-100 100 unit/mL 3 - 15 unit subcut ACHS 10/17/23 10/17/23 (3 mL) subcutaneous pen (Novolog FlexPen U-100 Insulin aspart) Previous Rx's ?Medication ?Instructions ?Recorded ferrous sulfate 325 mg (65 mg 325 mg PO BID #60 tabs 08/24/23 iron) tablet fluconazole 100 mg tablet 100 mg PO QD #10 tabs 08/24/23 amoxicillin 875 mg-potassium 1 tab PO Q12H #20 tabs 10/18/23 clavulanate 125 mg tablet isosorbide mononitrate 30 mg 30 mg PO QD #30 tabs 10/18/23 tablet,extended release 24 hr prednisone 10 mg tablet 50 mg (5 x 10 mg) PO DAILY #47 tabs 10/18/23 Allergies Allergy/AdvReac Type Severity Reaction Status Date / Time oxycodone AdvReac Severe nausea and Verified 08/20/23 08:04 vomiting tramadol AdvReac Severe Vomiting Verified 08/20/23 08:04 cefdinir AdvReac Unknown Vomiting Verified 08/20/23 08:04 ciprofloxacin AdvReac Unknown Vomiting Verified 08/20/23 08:04 Opioid HPI Opioid Management Most Recent Opioid Data: Last Pain Scale 4 02/13/24 14:39 Last Pain Intensity 9 10/17/23 09:55 Last MAR Pain Assessment 02/13/24 14:39 Review of Systems ROS Status of ROS 10 or more systems reviewed and unremarkable except as noted in history and below [facility] Medical History (Updated 10/22/23 @ 00:00 by ) Cellulitis and abscess of left leg ?L03.116 - Cellulitis of left lower limb (ICD-10) ?L02.416 - Cutaneous abscess of left lower limb (ICD-10) Hyperkalemia ?E87.5 - Hyperkalemia (ICD-10) Moderate protein-calorie malnutrition ?E44.0 - Moderate protein-calorie malnutrition (ICD-10) CHF (congestive heart failure) ?I50.9 - Heart failure, unspecified (ICD-10) Hypoxia ?R09.02 - Hypoxemia (ICD-10) Acute infective exacerbation of chronic obstructive airway disease ?J44.1 - Chronic obstructive pulmonary disease with (acute) exacerbation (ICD-10) Weakness ?R53.1 - Weakness (ICD-10) Acute right hip pain ?M25.551 - Pain in right hip (ICD-10) Rheumatoid arthritis flare ?M06.9 - Rheumatoid arthritis, unspecified (ICD-10) Difficulty in walking ?R26.2 - Difficulty in walking, not elsewhere classified (ICD-10) Arthralgia ?M25.50 - Pain in unspecified joint (ICD-10) CAD, multiple vessel ?I25.10 - Atherosclerotic heart disease of [place] coronary artery without angina pectoris (ICD-10) Atrial fibrillation ?I48.91 - Unspecified atrial fibrillation (ICD-10) COPD (chronic obstructive pulmonary disease) ?J44.9 - Chronic obstructive pulmonary disease, unspecified (ICD-10) Gouty arthritis ?M10.9 - Gout, unspecified (ICD-10) Hypothyroidism (acquired) ?E03.9 - Hypothyroidism, unspecified (ICD-10) Hypokalemia ?E87.6 - Hypokalemia (ICD-10) Iron deficiency anemia ?D50.9 - Iron deficiency anemia, unspecified (ICD-10) Type 2 diabetes mellitus ?E11.9 - Type 2 diabetes mellitus without complications (ICD-10) Surgical History (Updated 10/14/23 @ 23:04 by Zena Bhakta) H/O: hysterectomy ?Z90.710 - Acquired absence of both cervix and uterus (ICD-10) History of appendectomy ?Z90.49 - Acquired absence of other specified parts of digestive tract (ICD-10) H/O heart artery stent ?Z95.5 - Presence of coronary angioplasty implant and graft (ICD-10) Family History (Updated 10/14/23 @ 23:05 by Zena Bhakta) Father Family history of CHF (congestive heart failure) Family history of cancer Family history of hypertension Sister Family history of cancer Family history of diabetes mellitus Mother Family history of diabetes mellitus Family history of hypertension Social History (Updated 10/14/23 @ 23:06 by Zena Bhakta) Within the past year, how often did you have a drink containing alcohol: never Score interpretation: A score less than 3 is consistent with normal alcohol consumption. Smoking status: Former smoker Non-prescribed substance use: denies use Previous occupational history: retired Highest level of school completed/degree received: high school graduate Are you now , , , , never or living with a partner: In a typical week, how many times do you talk on the telephone with family, friends, or neighbors: 3 or more times per week How often do you get together with friends or relatives: 3 or more times per week How often do you attend confucianism or alevism services: 4 or more times per year Little interest or pleasure in doing things: not at all Feeling down, depressed, or hopeless: not at all Feel stressed/tense/nervous/anxious/difficulty sleeping: not at all Do you think of yourself as: straight/heterosexual Gender Identity: female Exam Narrative Exam Narrative: Time Seen: [] Vital Signs: [Per nurse's notes.] General: [Alert] Skin: [Warm, dry, AbscessArea of fluctuance felt in the right buttock with redness warmth and induration Head: [Normocephalic, atraumatic.] Neck: [Supple, trachea midline.] Eye: [Pupils are equal, round and reactive to light, extraocular movements are intact, normal conjunctiva.] Ears, nose, mouth and throat: oral mucosa moist. Cardiovascular: [Regular rate and rhythm, no murmur.] Respiratory: [Diminished breath sounds bilaterally respirations are non-labored, breath sounds are equal.] Chest wall: [No tenderness, no deformity.] Gastrointestinal: [Soft, nontender, non distended, normal bowel sounds.] MSK: 5 out of 5 muscle strength x 4 extremities no calf pain or edema. Legs are wrapped bilaterally due to multiple wounds. Wrapped by wound clinic. Lymphatics: [No lymphadenopathy.] Psychiatric: [Cooperative, appropriate mood & affect.] Neurological: [Alert and oriented to person, place, time, and situation, no focal neurological deficit observed.] Constitutional Vital Signs, click to edit/add: Last Vital Signs Temp 97.8 F 02/13/24 11:31 Pulse 75 02/13/24 15:22 Resp 29 H 02/13/24 15:20 BP 114/59 02/13/24 15:22 Pulse Ox 98 02/13/24 15:22 O2 Del Method Nasal Cannula 02/13/24 12:12 O2 Flow Rate 2 02/13/24 15:22 Course Vital Signs Vital signs: Vital Signs Temperature 97.8 F 02/13/24 11:31 Pulse Rate 106 H 02/13/24 11:31 Respiratory Rate 18 02/13/24 11:31 Blood Pressure 136/78 02/13/24 11:31 Pulse Oximetry 90 L 02/13/24 11:31 Oxygen Delivery Method Room Air 02/13/24 11:31 Temperature 97.8 F 02/13/24 11:31 Pulse Rate 75 02/13/24 15:22 Respiratory Rate 29 H 02/13/24 15:20 Blood Pressure 114/59 02/13/24 15:22 Pulse Oximetry 98 02/13/24 15:22 Oxygen Delivery Method Nasal Cannula 02/13/24 12:12 Oxygen Delivery Flow Rate 2 02/13/24 15:22 Medical Decision Making MDM Narrative Medical decision making narrative: Patient's CT shows of the large right gluteal abscess that extends down to the ischial tuberosity. I spoke to Dr. Francois who said he could see the patient tomorrow. He did request drainage in the ER but I did not feel comfortable with that at this time. I did start IV antibiotics and I spoke to Dr. Azul who will admit the patient for care overnight and Dr. Francois to see tomorrow. Patient and family comfortable care plan for admission. Lactate negative here in ED. She was given IV fluids and IV pain medication. Differential Diagnosis Differential Diagnosis: Sepsis, abscess, CHF Medical Records Medical records reviewed: Yes I reviewed the patient's medical records Lab Data Lab results reviewed: Yes I reviewed the patient's lab results Labs: Lab Results 02/13/24 02/13/24 Range/Units 12:00 12:40 WBC 16.3 H (4.0-11.0) 10^3/uL RBC 3.96 L (4.20-5.40) 10^6/uL Hgb 11.5 L (12.0-16.0) g/dL Hct 37.1 (36.0-48.0) % MCV 93.7 (81.0-99.0) fL MCH 29.0 (26.7-34.0) pg MCHC 31.0 (29.9-35.2) g/dL RDW 14.5 (11.0-15.0) % Plt Count 459 H (150-450) 10^3/uL MPV 9.4 L (9.5-13.5) fL Neut % (Auto) 79.8 H (43.0-75.0) % Lymph % (Auto) 10.5 L (20.5-60.0) % [place] % (Auto) 8.1 (1.7-12.0) % Eos % (Auto) 0.6 L (0.9-7.0) % Baso % (Auto) 0.2 (0.2-2.0) % Neut # (Auto) 13.0 H (1.4-6.5) 10^3/uL Lymph # (Auto) 1.7 (1.2-3.8) 10^3/uL [place] # (Auto) 1.3 H (0.3-0.8) 10^3/uL Eos # (Auto) 0.1 (0.0-0.7) 10^3/uL Baso # (Auto) 0.0 (0.0-0.1) 10^3/uL Abs Immat Gran (auto) 0.13 H (0.00-0.03) 10^3/uL Imm/Tot Granulo (auto) 0.8 H (0.0-0.5) % Sodium 137 (136-145) mmol/L Potassium 4.3 (3.5-5.1) mmol/L Chloride 98 (98-107) mmol/L Carbon Dioxide 30.3 (21.0-32.0) mmol/L Anion Gap 13.0 BUN 45.0 H (7.0-18.0) mg/dL Creatinine 1.68 H (0.55-1.02) mg/dL Est GFR ( Amer) 35 L (>=60) Est GFR (Non-Af Amer) 29 L (>=60) BUN/Creatinine Ratio 26.8 Glucose 107 H (74-106) mg/dL Lactate 1.1 (0.4-2.0) mmol/L Calcium 10.1 (8.5-10.1) mg/dL Total Bilirubin 0.4 (0.2-1.0) mg/dL AST 23 (15-37) U/L ALT 36 (14-59) U/L Alkaline Phosphatase 123 H (46-116) U/L Troponin I High Sens 11.7 (4.0-51.3) pg/mL Total Protein 7.8 (6.4-8.2) g/dL Albumin 2.5 L (3.4-5.0) g/dL Globulin 5.3 g/dL Albumin/Globulin Ratio 0.5 Urine Color Dk. orange (YELLOW) Urine Clarity Clear (CLEAR) Urine pH Research Development Director Ur Specific [place] <=1.005 A (1.005-1.025) Urine Protein Research Development Director Urine Glucose (UA) Research Development Director Urine Ketones Research Development Director Urine Occult Blood Research Development Director Urine Nitrite Research Development Director Urine Bilirubin Research Development Director Urine Urobilinogen Research Development Director Ur Leukocyte Esterase Research Development Director Urine RBC 0-2 (0-2) #/HPF Urine WBC 0-2 A (NONE SEEN) #/HPF Ur Squamous Epith Cells Few A (NONE/RARE) #/LPF Urine Crystals None seen (None Seen) #/HPF Urine Bacteria None seen (NONE SEEN) #/HPF Urine Casts None seen (NONE SEEN) #/LPF Urine Mucus None seen (NONE SEEN) Imaging Data CT scan - abdomen: Radiologist's impression: ITS Impressions Chest X-Ray 02/13/24 12:28 IMPRESSION: 1. Moderate bibasilar infiltrates versus atelectasis; slightly greater than previously seen. 2. Grossly stable cardiomegaly. Electronically authenticated by: ALFONSO GEORGE Date: 02/13/2024 13:[address] 02/13/24 12:28 IMPRESSION: 1. Large right gluteal abscess. This appears to contact the ischial tuberosity but no appreciable periosteal reaction or osteomyelitis. Electronically authenticated by: ALFONSO GEORGE Date: 02/13/2024 15:14 ECG Data Attestation: I personally reviewed and interpreted this ECG as follows: Interpretation: EKG INTERPRETATION Time: []1153 Rate: []89 Rhythm: _ []A-fib ST segments: _ [] T waves: _ [] Ectopy: _ [] P wave/ME interval: _ [] QRS interval: _ [] QT interval: _ [] Comparison: _ [] Comparison EKG date: [] Performed by: [self] Discharge Plan Discharge Chief Complaint: Recheck/Abnormal Lab/Rx Time of Disposition Decision: 16:54 Prescriptions / Home Meds: No Action albuterol sulfate 2.5 mg /3 mL (0.083 %) solution for nebulization 2.5 mg inhalation Q4H PRN (Reason: shortness of breath or wheezing) albuterol sulfate 90 mcg/actuation HFA aerosol inhaler 2 puff INHALATION Q4H PRN (Reason: shortness of breath or wheezing) amlodipine 5 mg tablet 10 mg PO DAILY anastrozole 1 mg tablet 1 mg PO DAILY aspirin [Adult Low Dose Aspirin] 81 mg tablet,delayed release (DR/EC) 81 mg PO DAILY Eliquis 5 mg tablet 5 mg PO BID furosemide 40 mg tablet 40 mg PO Q12H glimepiride 4 mg tablet 4 mg PO BID hydralazine 100 mg tablet 100 mg PO TID Patient Comments: IF BP OVER 130 isosorbide mononitrate 60 mg tablet extended release 24 hr 60 mg PO DAILY levothyroxine 112 mcg tablet 112 mcg PO DAILY liothyronine 5 mcg tablet 10 mcg PO DAILY metformin 500 mg tablet 500 mg PO BID metoprolol succinate 200 mg tablet extended release 24 hr 200 mg PO DAILY simvastatin 20 mg tablet 20 mg PO BEDTIME sucralfate 1 gram tablet 1 g PO QID febuxostat 40 mg tablet 40 mg PO DAILY potassium chloride [Klor-Con M20] 20 mEq tablet,ER particles/crystals 20 meq PO BID fluconazole 100 mg Tablet 100 mg PO QD Qty: 10 0RF ferrous sulfate 325 mg (65 mg iron) Tablet 325 mg PO BID Qty: 60 11RF insulin glargine [Lantus U-100 Insulin] 100 unit/mL solution 10 unit subcut QAM cephalexin 500 mg capsule 500 mg PO Q6H Patient Comments: from 10/10/23-thru 10/19/23 doxycycline hyclate 100 mg capsule 100 mg PO BID Patient Comments: 10/10-10/19/23 insulin aspart U-100 [Novolog FlexPen U-100 Insulin] 100 unit/mL (3 mL) Insulin Pen 3 - 15 unit subcut ACHS isosorbide mononitrate 30 mg Tablet Extended Release 24 Hr 30 mg PO QD Qty: 30 11RF prednisone 10 mg tablet 50 mg PO DAILY Qty: 47 0RF Rx Instructions: 5/day for 3 days. 4/day for 3 days, 3/day for 3 days, 2/day for 3 days, 1/day for 3 days, 1/2 /day for 4 days amoxicillin-pot clavulanate 875-125 mg tablet 1 tab PO Q12H Qty: 20 0RF Print Language: Moh[place]
[2024-02-13 13:03] LABS: Lactate/Lactic Acid 1.1 mmol/L (0.4-2.0)
[2024-02-13 13:09] LABS: Alanine Aminotransferase 36 U/L (14-59); Albumin Globulin Ratio 0.5; Albumin Level 2.5 g/dL (3.4-5.0); Alkaline Phosphatase 123 U/L (46-116); Aspartate Amino Transferase 23 U/L (15-37); BUN Creatinine Ratio 26.8; Bilirubin Total 0.4 mg/dL (0.2-1.0); Calcium 10.1 mg/dL (8.5-10.1); Carbon Dioxide 30.3 mmol/L (21.0-32.0); Chloride 98 mmol/L (98-107); Estimated GFR (African America 35 (>=60); Estimated GFR (Non-African Ame 29 (>=60); Globulin 5.3 g/dL; Glucose 107 mg/dL (74-106); Potassium 4.3 mmol/L (3.5-5.1); Sodium 137 mmol/L (136-145); Total Protein 7.8 g/dL (6.4-8.2); Troponin I High Sensitivity 11.7 pg/mL (4.0-51.3)
[2024-02-13 13:42] LABS: Clarity Urine CLEAR (CLEAR); Color Urine DK. ORANGE (YELLOW); Specific Gravity Urine <=1.005 (1.005-1.025)
[2024-02-13 13:43] LABS: Urine Microscopic Indicated YES
[2024-02-13 13:51] LABS: Bacteria Urine NONE SEEN #/HPF (NONE SEEN); Cast Seen? NONE SEEN #/LPF (NONE SEEN); Crystals Seen? None Seen #/HPF (None Seen); Mucus Urine NONE SEEN (NONE SEEN); RBC Urine 0-2 #/HPF (0-2); Squamous Epithelial Cell Urine FEW #/LPF (NONE/RARE); WBC Urine 0-2 #/HPF (NONE SEEN)
[2024-02-13] MEDS: MORPHINE SULFATE 2 MG/ML SYRINGE IV ×2 (14:39→16:57)
[2024-02-13] MEDS: VANCOMYCIN HCL 1,000 MG in 0.9 % SODIUM CHLORIDE 250 ML 250 MG IV (15:45)
[2024-02-13] MEDS: DIAZEPAM 2 MG TABLET PO (16:57)
--- NOTE | 2024-02-13 17:31 | PC.NURSE ---
patient report given to ELADIO Martins. Nitza, supervisor color paste mixing took patient to floor
--- NOTE | 2024-02-13 17:44 | PHOTOS ---
right gluteal abcess
--- NOTE | 2024-02-13 17:56 | PHOTOS ---
right lower extremity. pt states these wounds started about four months ago.
[2024-02-13] MEDS: PIPERACILLIN SODIUM/TAZOBACTAM 3.375 GM in 0.9 % SODIUM CHLORIDE 50 ML IV (20:23)
[2024-02-13] MEDS: FUROSEMIDE 40 MG/4 ML VIAL IVP (20:24)
[2024-02-14] VITALS (30 sets, daily range): BP systolic 100–133; BP diastolic 59–88; PULSE 66–106; TEMP 36.4–36.7; O2SAT 78–96
[2024-02-14] MEDS: IPRATROPIUM/ALBUTEROL SULFATE 3 ML AMPUL.NEB IH ×2 (03:20→09:50)
[2024-02-14 04:45] LABS: Basophils Percent Auto 0.2 % (0.2-2.0); Eosinophils Percent Auto 0.2 % (0.9-7.0); Hematocrit 37.8 % (36.0-48.0); Hemoglobin 11.5 g/dL (12.0-16.0); Immature Granulocytes Abs Auto 0.11 10^3/uL (0.00-0.03); Immature Granulocytes Pct Auto 0.7 % (0.0-0.5); Lymphocytes Absolute Auto 0.9 10^3/uL (1.2-3.8); Lymphocytes Percent Auto 5.7 % (20.5-60.0); Mean Corpuscular HGB Conc 30.4 g/dL (29.9-35.2); Mean Corpuscular Hemoglobin 28.9 pg (26.7-34.0); Mean Platelet Volume 8.9 fL (9.5-13.5); Monocytes Absolute Auto 1.3 10^3/uL (0.3-0.8); Monocytes Percent Auto 7.9 % (1.7-12.0); Neutrophils Absolute Auto 13.6 10^3/uL (1.4-6.5); Neutrophils Percent Auto 85.3 % (43.0-75.0); Platelet Count 405 10^3/uL (150-450); Red Blood Count 3.98 10^6/uL (4.20-5.40); Red Cell Distribution Width 14.3 % (11.0-15.0)
[2024-02-14 05:09] LABS: Alanine Aminotransferase 31 U/L (14-59); Albumin Globulin Ratio 0.5; Albumin Level 2.3 g/dL (3.4-5.0); Alkaline Phosphatase 106 U/L (46-116); Anion Gap 11.9; Aspartate Amino Transferase 13 U/L (15-37); BUN Creatinine Ratio 25.7; Bilirubin Total 0.4 mg/dL (0.2-1.0); Calcium 9.7 mg/dL (8.5-10.1); Carbon Dioxide 31.2 mmol/L (21.0-32.0); Chloride 97 mmol/L (98-107); Estimated GFR (African America 40 (>=60); Estimated GFR (Non-African Ame 33 (>=60); Glucose 106 mg/dL (74-106); Potassium 4.1 mmol/L (3.5-5.1); Sodium 136 mmol/L (136-145); Total Protein 7.3 g/dL (6.4-8.2)
--- NOTE | 2024-02-14 07:07 | PM.GSCN ---
History of Present Illness Consult details Consult date: 02/14/24 Narrative: 83-year-old female presents with right gluteal pain and shortness of breath. She has history of lower extremity wounds and states that her right buttock has been bothering her for months. CT scan revealed right gluteal abscess spanning close to the ischial tuberosity approximately 5 x 6 cm. Patient denies any current fever, chills, emesis, nausea. Patient states that she has been having discomfort when she tries to sit on her right bottom. Patient has a history of diabetes, CAD, CHF, A-fib along with other medical comorbidities. Discussed with her the plan of incision and drainage and consent obtained. Patient's significant other was at bedside and questions answered. Review of Systems ROS Status of ROS 10 or more systems reviewed and unremarkable except as noted in history and below [facility] Medical History (Updated 02/13/24 @ 16:56 by ) Cellulitis and abscess of left leg ?L03.116 - Cellulitis of left lower limb (ICD-10) ?L02.416 - Cutaneous abscess of left lower limb (ICD-10) Hyperkalemia ?E87.5 - Hyperkalemia (ICD-10) Moderate protein-calorie malnutrition ?E44.0 - Moderate protein-calorie malnutrition (ICD-10) CHF (congestive heart failure) ?I50.9 - Heart failure, unspecified (ICD-10) Hypoxia ?R09.02 - Hypoxemia (ICD-10) Acute infective exacerbation of chronic obstructive airway disease ?J44.1 - Chronic obstructive pulmonary disease with (acute) exacerbation (ICD-10) Weakness ?R53.1 - Weakness (ICD-10) Acute right hip pain ?M25.551 - Pain in right hip (ICD-10) Rheumatoid arthritis flare ?M06.9 - Rheumatoid arthritis, unspecified (ICD-10) Difficulty in walking ?R26.2 - Difficulty in walking, not elsewhere classified (ICD-10) Arthralgia ?M25.50 - Pain in unspecified joint (ICD-10) CAD, multiple vessel ?I25.10 - Atherosclerotic heart disease of [place] coronary artery without angina pectoris (ICD-10) Atrial fibrillation ?I48.91 - Unspecified atrial fibrillation (ICD-10) COPD (chronic obstructive pulmonary disease) ?J44.9 - Chronic obstructive pulmonary disease, unspecified (ICD-10) Gouty arthritis ?M10.9 - Gout, unspecified (ICD-10) Hypothyroidism (acquired) ?E03.9 - Hypothyroidism, unspecified (ICD-10) Hypokalemia ?E87.6 - Hypokalemia (ICD-10) Iron deficiency anemia ?D50.9 - Iron deficiency anemia, unspecified (ICD-10) Type 2 diabetes mellitus ?E11.9 - Type 2 diabetes mellitus without complications (ICD-10) Surgical History (Updated 10/14/23 @ 23:04 by Zena Bhakta) H/O: hysterectomy ?Z90.710 - Acquired absence of both cervix and uterus (ICD-10) History of appendectomy ?Z90.49 - Acquired absence of other specified parts of digestive tract (ICD-10) H/O heart artery stent ?Z95.5 - Presence of coronary angioplasty implant and graft (ICD-10) Family History (Updated 10/14/23 @ 23:05 by Zena Bhakta) Father Family history of CHF (congestive heart failure) Family history of cancer Family history of hypertension Sister Family history of cancer Family history of diabetes mellitus Mother Family history of diabetes mellitus Family history of hypertension Social History (Updated 02/13/24 @ 18:21 by Kira Meza LPN) Within the past year, how often did you have a drink containing alcohol: never Within the past year, how often did you have six or more drinks on one occasion: never Score interpretation: A score less than 3 is consistent with normal alcohol consumption. Smoking status: Former smoker Non-prescribed substance use: denies use Previous occupational history: retired Highest level of school completed/degree received: high school graduate Are you now , , , , never or living with a partner: In a typical week, how many times do you talk on the telephone with family, friends, or neighbors: 3 or more times per week How often do you get together with friends or relatives: 3 or more times per week How often do you attend christian or samaritan services: 4 or more times per year Little interest or pleasure in doing things: not at all Feeling down, depressed, or hopeless: not at all Feel stressed/tense/nervous/anxious/difficulty sleeping: not at all Do you think of yourself as: straight/heterosexual Gender Identity: female Meds Home Medications and Allergies Home Medications ?Medication ?Instructions ?Recorded ?Confirmed ?Type albuterol sulfate 2.5 mg/3 mL 2.5 mg inhalation Q4H PRN 03/04/23 02/13/24 History (0.083 %) solution for nebulization shortness of breath or wheezing anastrozole 1 mg tablet 1 mg PO DAILY 03/04/23 02/13/24 History apixaban 5 mg tablet (Eliquis) 5 mg PO BID 03/04/23 02/13/24 History aspirin 81 mg tablet,delayed 81 mg PO DAILY 03/04/23 02/13/24 History release (Adult Low Dose Aspirin) furosemide 40 mg tablet 40 mg PO Q12H 03/04/23 02/13/24 History hydralazine 100 mg tablet 100 mg PO TID 03/04/23 02/13/24 History isosorbide mononitrate 60 mg 60 mg PO DAILY 03/04/23 02/13/24 History tablet,extended release 24 hr levothyroxine 112 mcg tablet 112 mcg PO DAILY 03/04/23 02/13/24 History liothyronine 5 mcg tablet 10 mcg PO DAILY 03/04/23 02/13/24 History metoprolol succinate 200 mg 200 mg PO DAILY 03/04/23 02/13/24 History tablet,extended release 24 hr simvastatin 20 mg tablet 20 mg PO BEDTIME 03/04/23 02/13/24 History sucralfate 1 gram tablet 1 g PO QID 03/04/23 02/13/24 History febuxostat 40 mg tablet 40 mg PO DAILY 08/20/23 02/13/24 History insulin glargine 100 unit/mL 10 unit subcut QAM 10/14/23 02/13/24 History subcutaneous solution (Lantus U-100 Insulin) insulin aspart U-100 100 unit/mL 3 - 15 unit subcut ACHS 10/17/23 02/13/24 History (3 mL) subcutaneous pen (Novolog FlexPen U-100 Insulin aspart) amoxicillin 875 mg-potassium 1 tab PO Q12H #20 tabs 10/18/23 02/13/24 Rx clavulanate 125 mg tablet amlodipine 10 mg tablet 10 mg PO .qd 02/13/24 02/13/24 History empagliflozin 10 mg tablet 10 mg PO .qd 02/13/24 02/13/24 History (Jardiance) hydrocodone 5 mg-acetaminophen 325 tab 02/13/24 History mg tablet spironolactone 50 mg tablet 50 mg PO .qd 02/13/24 02/13/24 History Allergies Allergy/AdvReac Type Severity Reaction Status Date / Time oxycodone AdvReac Severe nausea and Verified 08/20/23 08:04 vomiting tramadol AdvReac Severe Vomiting Verified 08/20/23 08:04 cefdinir AdvReac Unknown Vomiting Verified 08/20/23 08:04 ciprofloxacin AdvReac Unknown Vomiting Verified 08/20/23 08:04 Exam Constitutional Vital Signs, click to edit/add: Last Vital Signs Temp 97.7 F 02/14/24 03:49 Pulse 88 02/14/24 05:56 Resp 18 02/14/24 03:49 BP 133/88 02/14/24 03:49 Pulse Ox 90 L 02/14/24 03:49 O2 Del Method Nasal Cannula 02/14/24 03:49 O2 Flow Rate 2 02/14/24 03:49 Common normals: no apparent distress and oriented x3 HENMT Common normals: normocephalic Head and scalp: atraumatic Eye Common normals: PERRL and EOMs intact bilaterally Respiratory Common normals: normal respiratory effort and no use of accessory muscles Cardio Common normals: regular rate and regular rhythm GI Common normals: soft to palpation, non-tender and no masses Extremity Other: right lower gluteus with small area of induration and erythema noted, no active drainage or streaking noted Neuro Speech: speech normal Psych Appearance: grossly normal and well kempt Results Labs Labs: Abnormal lab results 02/13/24 02/13/24 02/14/24 Range/Units 12:00 12:40 04:28 WBC 16.3 H 16.0 H (4.0-11.0) 10^3/uL RBC 3.96 L 3.98 L (4.20-5.40) 10^6/uL Hgb 11.5 L 11.5 L (12.0-16.0) g/dL Plt Count 459 H (150-450) 10^3/uL MPV 9.4 L 8.9 L (9.5-13.5) fL Neut % (Auto) 79.8 H 85.3 H (43.0-75.0) % Lymph % (Auto) 10.5 L 5.7 L (20.5-60.0) % Eos % (Auto) 0.6 L 0.2 L (0.9-7.0) % Neut # (Auto) 13.0 H 13.6 H (1.4-6.5) 10^3/uL Lymph # (Auto) 0.9 L (1.2-3.8) 10^3/uL [place] # (Auto) 1.3 H 1.3 H (0.3-0.8) 10^3/uL Abs Immat Gran (auto) 0.13 H 0.11 H (0.00-0.03) 10^3/uL Imm/Tot Granulo (auto) 0.8 H 0.7 H (0.0-0.5) % Chloride 97 L (98-107) mmol/L BUN 45.0 H 39.0 H (7.0-18.0) mg/dL Creatinine 1.68 H 1.52 H (0.55-1.02) mg/dL Est GFR ( Amer) 35 L 40 L (>=60) Est GFR (Non-Af Amer) 29 L 33 L (>=60) Glucose 107 H (74-106) mg/dL AST 13 L (15-37) U/L Alkaline Phosphatase 123 H (46-116) U/L NT-Pro-B Natriuret Pep 9484.0 H* 9140.0 H* (<=1800.0) pg/mL Albumin 2.5 L 2.3 L (3.4-5.0) g/dL Ur Specific [place] <=1.005 A (1.005-1.025) Urine WBC 0-2 A (NONE SEEN) #/HPF Ur Squamous Epith Cells Few A (NONE/RARE) #/LPF Diabetes panel 02/13/24 02/14/24 Range/Units 12:00 04:28 Sodium 137 136 (136-145) mmol/L Potassium 4.3 4.1 (3.5-5.1) mmol/L Chloride 98 97 L (98-107) mmol/L Carbon Dioxide 30.3 31.2 (21.0-32.0) mmol/L BUN 45.0 H 39.0 H (7.0-18.0) mg/dL Creatinine 1.68 H 1.52 H (0.55-1.02) mg/dL Glucose 107 H 106 (74-106) mg/dL Calcium 10.1 9.7 (8.5-10.1) mg/dL AST 23 13 L (15-37) U/L ALT 36 31 (14-59) U/L Alkaline Phosphatase 123 H 106 (46-116) U/L Total Protein 7.8 7.3 (6.4-8.2) g/dL Albumin 2.5 L 2.3 L (3.4-5.0) g/dL Calcium panel 02/13/24 02/14/24 Range/Units 12:00 04:28 Calcium 10.1 9.7 (8.5-10.1) mg/dL Albumin 2.5 L 2.3 L (3.4-5.0) g/dL Pituitary panel 02/13/24 02/14/24 Range/Units 12:00 04:28 Sodium 137 136 (136-145) mmol/L Potassium 4.3 4.1 (3.5-5.1) mmol/L Chloride 98 97 L (98-107) mmol/L Carbon Dioxide 30.3 31.2 (21.0-32.0) mmol/L BUN 45.0 H 39.0 H (7.0-18.0) mg/dL Creatinine 1.68 H 1.52 H (0.55-1.02) mg/dL Glucose 107 H 106 (74-106) mg/dL Calcium 10.1 9.7 (8.5-10.1) mg/dL Adrenal panel 02/13/24 02/14/24 Range/Units 12:00 04:28 Sodium 137 136 (136-145) mmol/L Potassium 4.3 4.1 (3.5-5.1) mmol/L Chloride 98 97 L (98-107) mmol/L Carbon Dioxide 30.3 31.2 (21.0-32.0) mmol/L BUN 45.0 H 39.0 H (7.0-18.0) mg/dL Creatinine 1.68 H 1.52 H (0.55-1.02) mg/dL Glucose 107 H 106 (74-106) mg/dL Calcium 10.1 9.7 (8.5-10.1) mg/dL Total Bilirubin 0.4 0.4 (0.2-1.0) mg/dL AST 23 13 L (15-37) U/L ALT 36 31 (14-59) U/L Alkaline Phosphatase 123 H 106 (46-116) U/L Total Protein 7.8 7.3 (6.4-8.2) g/dL Albumin 2.5 L 2.3 L (3.4-5.0) g/dL All other labs normal. Imaging CT scan - pelvis: image reviewed Assessment and Plan Assessment and Plan (1) Abscess: Plan 1. Incision and drainage of right gluteal abscess performed, packing placed, see procedure note for further details 2. Continue IV antibiotics and transition to oral antibiotics once tolerating p.o. intake. Hold Anticoagulation for today okay to resume tomorrow 3. Daily packing removal of 1-2 inches and replacement of dressing per nursing or wound care team. Ok to replace dressing as needed throughout the day and after BMs/ hygiene routine. 4. Once all the packing is removed wash area daily with soap and water and have pt soak in warm sitz bath 3 times a day. Ok for warm compress to area. Complete oral antibiotic course of 10 days. 5. Continue adequate BG control. OK for D/c from gen surg stance once WBC is trending down and pt is afebrile.
--- NOTE | 2024-02-14 07:17 | P.HP_ITS ---
HPI H&P: HPI History of Present Illness Chief complaint: WOUND CHECK gluteal absess hypoxia Narrative: Patient has had increasing pain over wound on her gluteal area, had a visit with wound clinic, referred to ER, in ER found to have gluteal abscess, admitted for workup and treatment of same When I saw patient on the medical surgical floor, patient quite uncomfortable due to secondary to pain. Denies chest pain or shortness of breath. No increasing cough. No orthopnea. Opioid HPI Opioid Management Most Recent Opioid Data: Last Pain Scale 0 02/14/24 03:49 Last Pain Intensity 9 10/17/23 09:55 Last Pain Assessment 02/14/24 06:23 Last MAR Pain Assessment 02/13/24 14:39 Last ORT Total Score 0 02/13/24 18:23 Last ORT Risk Category Low Risk 02/13/24 18:23 Review of Systems ROS Status of ROS 10 or more systems reviewed and unremark able except as noted in history and below [facility] Medical History (Updated 02/13/24 @ 16:56 by ) Cellulitis and abscess of left leg ?L03.116 - Cellulitis of left lower limb (ICD-10) ?L02.416 - Cutaneous abscess of left lower limb (ICD-10) Hyperkalemia ?E87.5 - Hyperkalemia (ICD-10) Moderate protein-calorie malnutrition ?E44.0 - Moderate protein-calorie malnutrition (ICD-10) CHF (congestive heart failure) ?I50.9 - Heart failure, unspecified (ICD-10) Hypoxia ?R09.02 - Hypoxemia (ICD-10) Acute infective exacerbation of chronic obstructive airway disease ?J44.1 - Chronic obstructive pulmonary disease with (acute) exacerbation (ICD-10) Weakness ?R53.1 - Weakness (ICD-10) Acute right hip pain ?M25.551 - Pain in right hip (ICD-10) Rheumatoid arthritis flare ?M06.9 - Rheumatoid arthritis, unspecified (ICD-10) Difficulty in walking ?R26.2 - Difficulty in walking, not elsewhere classified (ICD-10) Arthralgia ?M25.50 - Pain in unspecified joint (ICD-10) CAD, multiple vessel ?I25.10 - Atherosclerotic heart disease of [place] coronary artery without angina pectoris (ICD-10) Atrial fibrillation ?I48.91 - Unspecified atrial fibrillation (ICD-10) COPD (chronic obstructive pulmonary disease) ?J44.9 - Chronic obstructive pulmonary disease, unspecified (ICD-10) Gouty arthritis ?M10.9 - Gout, unspecified (ICD-10) Hypothyroidism (acquired) ?E03.9 - Hypothyroidism, unspecified (ICD-10) Hypokalemia ?E87.6 - Hypokalemia (ICD-10) Iron deficiency anemia ?D50.9 - Iron deficiency anemia, unspecified (ICD-10) Type 2 diabetes mellitus ?E11.9 - Type 2 diabetes mellitus without complications (ICD-10) Surgical History (Updated 10/14/23 @ 23:04 by Zena Bhakta) H/O: hysterectomy ?Z90.710 - Acquired absence of both cervix and uterus (ICD-10) History of appendectomy ?Z90.49 - Acquired absence of other specified parts of digestive tract (ICD- 10) H/O heart artery stent ?Z95.5 - Presence of coronary angioplasty implant and graft (ICD-10) Family History (Updated 10/14/23 @ 23:05 by Zena Bhakta) Father Family history of CHF (congestive heart failure) Family history of cancer Family history of hypertension Sister Family history of cancer Family history of diabetes mellitus Mother Family history of diabetes mellitus Family history of hypertension Social History (Updated 02/13/24 @ 18:21 by Kira Meza LPN) Within the past year, how often did you have a drink containing alcohol: never Within the past year, how often did you have six or more drinks on one occasion: never Score interpretation: A score less than 3 is consistent with normal alcohol consumption. Smoking status: Former smoker Non-prescribed substance use: denies use Previous occupational history: retired Highest level of school completed/degree received: high school graduate Are you now , , , , never or living with a partner: In a typical week, how many times do you talk on the telephone with family, friends, or neighbors: 3 or more times per week How often do you get together with friends or relatives: 3 or more times per week How often do you attend anabaptist or yarsanism services: 4 or more times per year Little interest or pleasure in doing things: not at all Feeling down, depressed, or hopeless: not at all Feel stressed/tense/nervous/anxious/difficulty sleeping: not at all Do you think of yourself as: straight/heterosexual Gender Identity: female Meds Home Medications and Allergies Home Medications ?Medication ?Instructions ?Recorded ?Confirmed ?Type albuterol sulfate 2.5 mg/3 mL 2.5 mg inhalation Q4H PRN 03/04/23 02/13/24 History (0.083 %) solution for nebulization shortness of breath or wheezing anastrozole 1 mg tablet 1 mg PO DAILY 03/04/23 02/13/24 History apixaban 5 mg tablet (Eliquis) 5 mg PO BID 03/04/23 02/13/24 History aspirin 81 mg tablet,delayed 81 mg PO DAILY 03/04/23 02/13/24 History release (Adult Low Dose Aspirin) furosemide 40 mg tablet 40 mg PO Q12H 03/04/23 02/13/24 History hydralazine 100 mg tablet 100 mg PO TID 03/04/23 02/13/24 History isosorbide mononitrate 60 mg 60 mg PO DAILY 03/04/23 02/13/24 History tablet,extended release 24 hr levothyroxine 112 mcg tablet 112 mcg PO DAILY 03/04/23 02/13/24 History liothyronine 5 mcg tablet 10 mcg PO DAILY 03/04/23 02/13/24 History metoprolol succinate 200 mg 200 mg PO DAILY 03/04/23 02/13/24 History tablet,extended release 24 hr simvastatin 20 mg tablet 20 mg PO BEDTIME 03/04/23 02/13/24 History sucralfate 1 gram tablet 1 g PO QID 03/04/23 02/13/24 History febuxostat 40 mg tablet 40 mg PO DAILY 08/20/23 02/13/24 History insulin glargine 100 unit/mL 10 unit subcut QAM 10/14/23 02/13/24 History subcutaneous solution (Lantus U-100 Insulin) insulin aspart U-100 100 unit/mL 3 - 15 unit subcut ACHS 10/17/23 02/13/24 History (3 mL) subcutaneous pen (Novolog FlexPen U-100 Insulin aspart) amoxicillin 875 mg-potassium 1 tab PO Q12H #20 tabs 10/18/23 02/13/24 Rx clavulanate 125 mg tablet amlodipine 10 mg tablet 10 mg PO .qd 02/13/24 02/13/24 History empagliflozin 10 mg tablet 10 mg PO .qd 02/13/24 02/13/24 History (Jardiance) hydrocodone 5 mg-acetaminophen 325 tab 02/13/24 History mg tablet spironolactone 50 mg tablet 50 mg PO .qd 02/13/24 02/13/24 History Allergies Allergy/AdvReac Type Severity Reaction Status Date / Time oxycodone AdvReac Severe nausea and Verified 08/20/23 08:04 vomiting tramadol AdvReac Severe Vomiting Verified 08/20/23 08:04 cefdinir AdvReac Unknown Vomiting Verified 08/20/23 08:04 ciprofloxacin AdvReac Unknown Vomiting Verified 08/20/23 08:04 Exam Constitutional Vital Signs, click to edit/add: Last Vital Signs Temp 97.7 F 02/14/24 03:49 Pulse 88 02/14/24 05:56 Resp 18 02/14/24 03:49 BP 133/88 02/14/24 03:49 Pulse Ox 90 L 02/14/24 03:49 O2 Del Method Nasal Cannula 02/14/24 03:49 O2 Flow Rate 2 02/14/24 03:49 Documenting provider has reviewed patient's vital signs: yes Common normals: apparent distress (Moderate painful distress) Respiratory Common normals: normal respiratory effort, no retractions and clear to auscultation bilaterally Cardio Common normals: regular rate and no murmurs; irregular rhythm Rhythm: abnormal rhythm GI Common normals: Normal to inspection, nondistended, normoactive bowel sounds present, soft to palpation and non-tender Other: See notations from surgeon on gluteal area Extremity Common normals: abnormal to inspection (1+ edema but normal for her) Results Labs Labs: Short CBC 02/13/24 02/14/24 Range/Units 12:00 04:28 WBC 16.3 H 16.0 H (4.0-11.0) 10^3/uL Hgb 11.5 L 11.5 L (12.0-16.0) g/dL Hct 37.1 37.8 (36.0-48.0) % Plt Count 459 H 405 (150-450) 10^3/uL BMP 02/13/24 02/14/24 12:00 04:28 Sodium 137 136 Potassium 4.3 4.1 Chloride 98 97 L Carbon Dioxide 30.3 31.2 BUN 45.0 H 39.0 H Creatinine 1.68 H 1.52 H Glucose 107 H 106 Calcium 10.1 9.7 Liver Function 02/13/24 02/14/24 Range/Units 12:00 04:28 Total Bilirubin 0.4 0.4 (0.2-1.0) mg/dL AST 23 13 L (15-37) U/L ALT 36 31 (14-59) U/L Alkaline Phosphatase 123 H 106 (46-116) U/L Albumin 2.5 L 2.3 L (3.4-5.0) g/dL Urine 02/13/24 Range/Units 12:40 Urine Color Dk. orange (YELLOW) Urine Clarity Clear (CLEAR) Urine pH [employer] Counsel[employer] Ur Specific [place] <=1.005 A (1.005-1.025) Urine Protein [employer] Urine Glucose (UA) [employer] Assessment and Plan Assessment and Plan (1) Abscess: Plan Respiratory distress, acute hypoxia, borderline tachycardia, leukocytosis, thrombocythemia, acute kidney injury (baseline 1.16 creatinine, progressed to 1.68 which is 144.8% above baseline), uncontrolled diabetes mellitus secondary to gluteal abscess. Plan is to I&D at bedside, obtain cultures, white blood cell count is only down slightly but will maintain current Zosyn and vancomycin. Blood cultures pending. 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 She does have 1+ edema but is normal for her. Lung exam is clear. Continue with home diuretics but at IV dosing. Echocardiogram reviewed from October shows an excellent ejection fraction of 55%. Acute kidney injury-improved today. Continue to monitor daily Thrombocythemia secondary to infectious process-improved today Uncontrolled diabetes mellitus-adjust insulin sliding scale today Severe protein calorie malnutrition-add dietary supplements to improve protein to aid in wound healing. COPD-not active-aerosol treatments as needed Atrial fibrillation with controlled ventricular response-May need to hold anticoagulation if surgical debridement is necessary. Having bedside debridement this morning Hypertension-continue with home medications Gout-not active-continue with home medication Hypothyroidism-had recent lab results-maintain current dosing History of gastritis-continue with home medication-does have mild anemia but not progressive. Doubt GI bleed Iron deficiency anemia-monitor daily Hypercholesterolemia-continue with home medications Admission status: Patient with progressive wound on gluteal area now forming an abscess. Debridement this morning. Medically necessary treatment will span 2 midnights. Maintain inpatient status
[2024-02-14] MEDS: LIDOCAINE HCL 1% 200 MG/20 ML MDV INJ (07:24)
[2024-02-14] MEDS: ONDANSETRON PF 4 MG/2 ML VIAL IV (07:24)
--- NOTE | 2024-02-14 08:11 | P.ON_ITS ---
Date of procedure: 02/14/24 Pre-op diagnosis: right gluteal abscess Post-op diagnosis: same as pre-op Procedure: Procedure: Incision and drainage of Right gluteal abscess Details The patient was identified as the correct patient and the procedure verified. A Time Out was held and the above information confirmed. The patient was placed in left lateral position. The right gluteal area of induration was prepped and draped in a sterile fashion. The area of planned incision was injected with 1% lidocaine without epi, approximately 5ml was used. An 11 blade was used to make a cruciate incision over the area of induration and fluctuance. It was approximately 2 cm in length. Use of careful sharp and blunt dissection was carried out to get out all of the abscess fluid. The wound was flushed with saline flushes. The area was cleansed and packed with iodoform packing. Instrume nt, sponge, and needle counts were correct at the conclusion of the case. Patient tolerated the procedure well without any complications. Plan 1. Incision and drainage of right gluteal abscess performed, packing placed, see procedure note for further details 2. Continue IV antibiotics and transition to oral antibiotics once tolerating p.o. intake. Hold Anticoagulation for today okay to resume tomorrow 3. Daily packing removal of 1-2 inches and replacement of dressing per nursing or wound care team. Ok to replace dressing as needed throughout the day and after BMs/ hygiene routine. 4. Once all the packing is removed wash area daily with soap and water and have pt soak in warm sitz bath 3 times a day. Ok for warm compress to area. Complete oral antibiotic course of 10 days. 5. Continue adequate BG control. OK for D/c from gen surg stance once WBC is trending down and pt is afebrile Anesthesia: Local Surgeon: Mahamed Francois Estimated blood loss (mL): 5 Pathology: none sent Condition: stable Disposition: floor
[2024-02-14] MEDS: FUROSEMIDE 40 MG/4 ML VIAL IVP ×2 (08:59→21:26)
[2024-02-14] MEDS: 0.9 % SODIUM CHLORIDE 250 ML 10 ML IV (09:26)
[2024-02-14] MEDS: PIPERACILLIN SODIUM/TAZOBACTAM 3.375 GM in 0.9 % SODIUM CHLORIDE 50 ML IV ×2 (09:26→21:29)
[2024-02-14] MEDS: LIOTHYRONINE SODIUM 5 MCG TABLET 10 MCG PO (09:26)
[2024-02-14] MEDS: PROSTAT 15 GM PROTEIN/100 CAL 30 ML LIQUID PACKET PO ×2 (09:27→21:26)
[2024-02-14] MEDS: SPIRONOLACTONE 25 MG TABLET 50 MG PO (09:27)
[2024-02-14] MEDS: JUVEN PACKET 1 PACKET PO ×2 (09:27→21:26)
[2024-02-14] MEDS: CANAGLIFLOZIN 100 MG TABLET PO (09:28)
[2024-02-14] MEDS: ISOSORBIDE MONONITRATE 60 MG TAB.ER.24H PO (09:28)
[2024-02-14] MEDS: METOPROLOL SUCCINATE 100 MG TAB.ER.24H 200 MG PO (09:29)
[2024-02-14] MEDS: INSULIN DETEMIR 300 UNIT/3 ML INSULN.PEN 10 UNIT SQ (09:32)
[2024-02-14] MEDS: ACETAMINOPHEN 500 MG TABLET 1000 MG PO ×2 (09:38→17:31)
[2024-02-14] MEDS: FEBUXOSTAT 40 MG TABLET PO (09:39)
--- NOTE | 2024-02-14 09:55 | PC.NURSE ---
Dr Francois in this morning at 0745 to perform bedside I&D. Xray Tech stood by for assistance. He packed wound and typewriter ribbon winder covered with gauze and ABD. Brief was changed after procedure and repositioned in bed.
--- NOTE | 2024-02-14 11:16 | SWNOTE1 ---
SHARRI met with pt to discuss dc needs. Pt lives at home with significant other, Sreekanth. Pt's daughter also lives next door and she comes over in the morning and helps her throughout the day if needed. Pt helps watch the grandkids as well. Pt uses a rollator at home. Pt does have [facility] coming in, therapy and residential. Pt voiced the nurse comes in 2x a week for wound care. SW expressed to pt she will likely have daily wound care/packing for a bit. HH can assist but can't come daily. SW asked if her daughter would be able to assist and pt voiced she would. At this time pt has no other concerns for discharge and voices she is tired. SW to check with [facility] and send updates. Important Message from Medicare reviewed and discussed with patient. Pt. verbalized understanding and signed the form. Original given to patient and copy placed in patient?s chart. SHARRI called and spoke to Rahel at [facility] and pt is current with them. SHARRI faxed over face sheet, ED note, H&P, progress note, surgical notes, and therapy notes to [facility].
--- NOTE | 2024-02-14 11:23 | SWNOTE1 ---
SW did speak with pt about going to SNF. She was at [facility] for a few weeks and was discharged in December, she voices she does not want to return to SNF. Prefers to go home and resume home health.
[2024-02-14] MEDS: SUCRALFATE 1 GM TABLET PO ×3 (11:38→21:27)
[2024-02-14] MEDS: INSULIN ASPART 300 UNIT/3 ML PEN SUBQ ×2 (11:38→16:40)
--- NOTE | 2024-02-14 13:02 | SWNOTE1 ---
Pt does not wear home oxygen, but is on oxygen at hospital at this time.
--- NOTE | 2024-02-14 13:41 | SWNOTE1 ---
SW checked physical therapy notes and rehab was recommended as well, pt's stats were dropping as she was ambulating as well. SW stopped back in to speak with pt about rehab. Pt's grand-daughter was in room as well. SW did explain to pt that for her safety therapy is recommending she goes to rehab for a short term rehab stay. SW is aware pt has been to [facility] and just left in December. Pt stated she does not want to go, she is getting home health. SW advised her that she will get more therapy going to rehab, pt is aware of this. She stated the first week she was at [facility], she had some family issues and she thought she was only going to be there for 2 weeks, but it turned out to be 2 months. Pt stated she didn't mind it at [facility] and the care was good, her only complaint was that she was in wheelchair for too long sometimes. SW let pt know that we can also look at other facilities. Pt again voiced she does not want to go to rehab at this time and wants to go home. SHARRI recommended talking with her family about dc plans as well. SW let pt know that it is her decision, but since family does assist in home to talk it over with them as well.
[2024-02-14] MEDS: KETOROLAC TROMETHAMINE 30 MG/ML VIAL 15 MG IVP (17:59)
[2024-02-14] MEDS: ENSURE HP 237 ML LIQUID PO (21:26)
[2024-02-14] MEDS: TEMAZEPAM 15 MG CAPSULE PO (21:27)
[2024-02-14] MEDS: ATORVASTATIN CALCIUM 10 MG TABLET PO (21:27)
[2024-02-15] VITALS (26 sets, daily range): BP systolic 90–121; BP diastolic 51–82; PULSE 70–105; TEMP 35.9–36.7; O2SAT 90–96
[2024-02-15] MEDS: VANCOMYCIN HCL 1,000 MG in 0.9 % SODIUM CHLORIDE 250 ML 250 MG IV (03:15)
[2024-02-15] MEDS: DEXTROSE/DEXTRIN/MALTOSE 31 GM GEL.INSTANT GLUCOSE 30 GM PO (03:21)
[2024-02-15 03:25] LABS: Glucometer 48 mg/dL (74-106)
[2024-02-15 04:53] LABS: Basophils Percent Auto 0.2 % (0.2-2.0); Eosinophils Absolute Auto 0.2 10^3/uL (0.0-0.7); Eosinophils Percent Auto 1.4 % (0.9-7.0); Hematocrit 33.7 % (36.0-48.0); Hemoglobin 10.2 g/dL (12.0-16.0); Immature Granulocytes Abs Auto 0.06 10^3/uL (0.00-0.03); Immature Granulocytes Pct Auto 0.6 % (0.0-0.5); Lymphocytes Absolute Auto 1.4 10^3/uL (1.2-3.8); Lymphocytes Percent Auto 13.4 % (20.5-60.0); Mean Corpuscular HGB Conc 30.3 g/dL (29.9-35.2); Mean Corpuscular Hemoglobin 28.9 pg (26.7-34.0); Mean Corpuscular Volume 95.5 fL (81.0-99.0); Mean Platelet Volume 8.9 fL (9.5-13.5); Monocytes Absolute Auto 0.9 10^3/uL (0.3-0.8); Monocytes Percent Auto 8.1 % (1.7-12.0); Neutrophils Absolute Auto 8.1 10^3/uL (1.4-6.5); Neutrophils Percent Auto 76.3 % (43.0-75.0); Platelet Count 354 10^3/uL (150-450); Red Blood Count 3.53 10^6/uL (4.20-5.40); Red Cell Distribution Width 14.6 % (11.0-15.0); White Blood Count 10.6 10^3/uL (4.0-11.0)
[2024-02-15 05:31] LABS: Alanine Aminotransferase 23 U/L (14-59); Albumin Globulin Ratio 0.4; Albumin Level 1.9 g/dL (3.4-5.0); Alkaline Phosphatase 89 U/L (46-116); Anion Gap 7.6; Aspartate Amino Transferase 10 U/L (15-37); BUN Creatinine Ratio 33.1; Bilirubin Total 0.4 mg/dL (0.2-1.0); Calcium 9.2 mg/dL (8.5-10.1); Carbon Dioxide 33.4 mmol/L (21.0-32.0); Chloride 100 mmol/L (98-107); Estimated GFR (African America 34 (>=60); Estimated GFR (Non-African Ame 28 (>=60); Globulin 4.4 g/dL; Glucose 110 mg/dL (74-106); Sodium 137 mmol/L (136-145); Total Protein 6.3 g/dL (6.4-8.2)
[2024-02-15] MEDS: ACETAMINOPHEN 500 MG TABLET 1000 MG PO ×2 (05:45→16:44)
[2024-02-15] MEDS: LEVOTHYROXINE SODIUM 112 MCG TABLET PO (05:47)
--- NOTE | 2024-02-15 06:32 | PM.GSPN ---
Progress Note: A&P Assessment and Plan (1) Abscess: Assessment and Plan: Leukocytosis resolved, afebrile, regular HR, wound site area improved, repeat CT reveals complete drainage of fluid Expect some continued soreness and discomfort to I&D site due to packing, continue daily removal of 1-2 inches of packing, ok to replace dressing as needed throughout the day and after BMs/ hygiene routine Wound care team can cont to assess if patient will have prolonged hospital stay Continue oral antibiotics for a total of 14 days Once all the packing is removed wash area daily with soap and water and have pt soak in warm sitz bath 3 times a day. Ok for warm compress to area Continue adequate BG control, goal less then 180 OK for D/c from gen surg stance, pt to follow up next week for wound check in clinic Exam Constitutional Vital Signs, click to edit/add: Last Vital Signs Temp 97.5 F L 02/15/24 03:28 Pulse 83 02/15/24 06:00 Resp 16 02/15/24 03:28 BP 121/82 02/15/24 05:54 Pulse Ox 96 02/15/24 04:00 O2 Del Method Nasal Cannula 02/15/24 04:00 O2 Flow Rate 6 02/15/24 04:00
--- NOTE | 2024-02-15 07:04 | XR_ITS ---
The [address] [address] Patient Name: OSCAR MCLEOD MRN: [id number] date: 1940 Sex: F Assigned Patient Location: [place] Current Patient Location: [place] Accession/Order Number: [id number] Exam Date: 02/15/2024 07:40 Report Date: 02/15/2024 08:00 At the request of: MATEUS PERRY Procedure: XR chest 1V EXAMINATION: XR chest 1V HISTORY: dyspnea COMPARISON: XR chest 02/13/2024 FINDINGS: LUNGS: Elevated right hemidiaphragm with mild/moderate bibasilar opacities. VASCULATURE: No increased pulmonary vasculature. PLEURA: No pneumothorax, effusion, or pleural thickening. CARDIAC: Stable cardiomegaly. MEDIASTINUM: No visible mass or adenopathy. BONES: No fracture or visible bone lesion. OTHER: Negative. XR/XR chest 1V IMPRESSION: 1. Grossly stable moderate bibasilar infiltrates versus atelectasis. Electronically authenticated by: ALFONSO GEORGE Date: 02/15/2024 08:00
[2024-02-15 07:35] LABS: Troponin I High Sensitivity 13.6 pg/mL (4.0-51.3)
--- NOTE | 2024-02-15 07:45 | P.PN_ITS ---
Exam Constitutional Vital Signs, click to edit/add: Last Vital Signs Temp 97.5 F L 02/15/24 03:28 Pulse 83 02/15/24 06:00 Resp 16 02/15/24 03:28 BP 121/82 02/15/24 05:54 Pulse Ox 96 02/15/24 04:00 O2 Del Method Nasal Cannula 02/15/24 04:00 O2 Flow Rate 6 02/15/24 04:00 Progress Note: Objective Labs Labs: Short CBC 02/15/24 Range/Units 04:20 WBC 10.6 (4.0-11.0) 10^3/uL Hgb 10.2 L (12.0-16.0) g/dL Hct 33.7 L (36.0-48.0) % Plt Count 354 (150-450) 10^3/uL BMP 02/15/24 04:20 Sodium 137 Potassium 4.0 Chloride 100 Carbon Dioxide 33.4 H BUN 58.0 H Creatinine 1.75 H Glucose 110 H Calcium 9.2 Liver Function 02/15/24 Range/Units 04:20 Total Bilirubin 0.4 (0.2-1.0) mg/dL AST 10 L (15-37) U/L ALT 23 (14-59) U/L Alkaline Phosphatase 89 (46-116) U/L Albumin 1.9 L (3.4-5.0) g/dL Progress Note: A&P Assessment and Plan (1) Abscess: Plan Admission Findings: Respiratory distress, acute hypoxia, borderline tachycardia, leukocytosis, thrombocythemia, acute kidney injury (baseline 1.16 creatinine, progressed to 1.68 which is 144.8% above baseline), uncontrolled diabetes mellitus secondary to gluteal abscess. He completed yesterday. Not much was obtained. Especially compared to what was found on CT scan. Patient states pain and pressure are about the same or almost worse than admission. D iscussed with radiology about repeating CT scan hopefully without contrast. Cultures unable to be obtained. 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 Acute kidney injury-continue to monitor daily, deteriorated Thrombocythemia secondary to infectious process-resolved Uncontrolled diabetes mellitus-patient had episode of hypoglycemia. Severe protein calorie malnutrition-maintain current supplements COPD-change patient to IPV treatments today. Atrial fibrillation with controlled ventricular response-hold anticoagulation further today. Hypertension-continue with home medications-stable Gout-not active-continue with home medication Hypothyroidism-had recent lab results-maintain current dosing History of gastritis-continue with home medication-does have mild anemia but not progressive. Doubt GI bleed but will check Hemoccult Iron deficiency anemia-monitor daily-Down today, check Hemoccult Hypercholesterolemia-continue with home medications Admission status: Patient with progressive wound on gluteal area now forming an abscess. Debridement this morning. Medically necessary treatment will span 2 midnights. Maintain inpatient status. Overall patient worse today, likely 2-3 more day hospital stay
--- NOTE | 2024-02-15 07:50 | CT_ITS ---
The [address] [address] Patient Name: OSCAR MCLEOD MRN: [id number] date: 1940 Sex: F Assigned Patient Location: MS Current Patient Location: [place] Accession/Order Number: [id number] Exam Date: 02/15/2024 10:40 Report Date: 02/15/2024 11:26 At the request of: MATEUS PERRY Procedure: CT pelvis wo con EXAMINATION: CT pelvis wo con HISTORY: abscess on right buttock; follow-up COMPARISON: CT pelvis 02/13/2024 TECHNIQUE: After obtaining the patient's consent, CT images of the pelvis were obtained with non-ionic contrast. Multi-planar/3-D images were created to optimize visualization of vascular anatomy. Dose reduction techniques were achieved by using automated exposure control and/or adjustment of mA and/or kV according to patient size and/or use of iterative reconstruction technique. FINDINGS: AORTO-ILIAC: Atherosclerotic disease. No aneurysm. URINARY BLADDER: Nondistended with Mccoy catheter in place. LYMPH NODES: No adenopathy. BOWL: Colonic diverticulosis. No appreciable acute abnormality. PELVIC ORGANS: Hysterectomy. BONES: No bony lesion or fracture. OTHER: Poorly marginated soft tissue density inflammatory changes within the fat of the inferior margin of right gluteus approximately 5.5 x 4.1 x 3.7 cm. Previously seen internal fluid collection has been drained with skin opening visible. CT/CT pelvis wo con IMPRESSION: 1. Previously seen right gluteal abscess has been drained with persistent surrounding inflammatory changes, but overall size is slightly less. While this continues to extend to the ischium there is no evidence of osteomyelitis. No extension into the peritoneal cavity. Electronically authenticated by: ALFONSO GEORGE Date: 02/15/2024 11:26
--- NOTE | 2024-02-15 07:52 | CA_ITS ---
Patient Name: OSCAR MCLEOD MR#: [id number] : 1940 Exam Date: 02/15/2024 Ordering Doctor: DR Gil Blake . ECHOCARDIOGRAM REPORT PROCEDURE: CA ECHO LIMITED INDICATIONS: elevated BNP, congestive heart failure, atrial fibrillation, COPD, diabetes COMPARISON: None. DESCRIPTION: Limited ECHOCARDIOGRAM Real-time transthoracic echocardiography with 2D and M-mode performed. QUALITY: Technical quality was good. Limited echocardiogram per physician order. 59 , 178#, BP 1115/56 LEFT VENTRICLE: Mild dilatation. Normal left ventricular wall thickness. LV EF: Global left ventricular systolic function is difficult to assess but appears reduced; visually estimated ejection fraction is 45 to 50%. Unable to assess regional wall motion abnormality; consider contrast study for better delineation of endocardial borders. LEFT ATRIUM: Moderate dilatation. RIGHT ATRIUM: Normal chamber size. RIGHT VENTRICLE: Poorly seen. Normal chamber size. Systolic function appears preserved. TRICUSPID VALVE: Normal mobility and thickness. MITRAL VALVE: Normal mobility and thickness. Moderate mitral annular calcification. AORTIC VALVE: Normal trileaflet appearance. Mildly calcified aortic valve with restricted mobility. AORTIC ROOT: Normal diameter and appearance. Ascending aorta is normal in size. PULMONIC VALVE: Normal thickness and mobility. PERICARDIUM: No evidence of pericardial effusion. IVC: IVC is dilated (2.8 cm), does not collapse. CONCLUSION: 1. Global left ventricular systolic function is difficult to assess but appears reduced; visually estimated ejection fraction is 45 to 50% 2. The right ventricle is poorly seen but appears normal in size with preserved systolic function 3. The aortic valve is calcified with restricted mobility A limited echocardiogram was performed Adult Echocardiography Procedure Report Left Ventricle LVEDD (3.7 - 5.6 cm): 5.40 cm LVESD (2.2 - 4.0 cm): 4.31 cm LVIVS thickness (0.6 - 1.2 cm): 1.18 cm LVPW thickness (0.5 - 1.0 cm): 0.93 cm LVOT Diameter 1.82 cm Left Atrium LA Volume Index (2D A2C): 53.87 ml/m2 Left Atrium Systolic Dimension: 3.25 cm Mitral Valve Right Ventricle Aorta AO Root Diam: 3.24 cm Ascending Ao Diam: 2.52 cm Aortic Valve Tricuspid Valve Pulmonic Valve Right Atrium Right Atrium Systolic Pressure: 39.36 ml, 39.36 ml Dictated by: Valentin Pisano M.D. on 02/15/2024 at 15:02 Approved by: Valentin Pisano M.D. on 02/15/2024 at 15:06
[2024-02-15] MEDS: SPIRONOLACTONE 25 MG TABLET 50 MG PO (08:36)
[2024-02-15] MEDS: JUVEN PACKET 1 PACKET PO ×2 (08:36→21:12)
[2024-02-15] MEDS: FEBUXOSTAT 40 MG TABLET PO (08:36)
[2024-02-15] MEDS: BUMETANIDE 10 MG in 0.9 % SODIUM CHLORIDE 160 ML 20 MG IV (08:36)
[2024-02-15] MEDS: PROSTAT 15 GM PROTEIN/100 CAL 30 ML LIQUID PACKET PO ×2 (08:36→21:12)
[2024-02-15] MEDS: ISOSORBIDE MONONITRATE 60 MG TAB.ER.24H PO (08:37)
[2024-02-15] MEDS: CANAGLIFLOZIN 100 MG TABLET PO (08:37)
[2024-02-15] MEDS: APIXABAN 5 MG TABLET 2.5 MG PO ×2 (08:37→21:12)
[2024-02-15] MEDS: ASPIRIN 81 MG TABLET.DR PO (08:37)
[2024-02-15] MEDS: SUCRALFATE 1 GM TABLET PO ×4 (08:37→21:12)
[2024-02-15] MEDS: LIOTHYRONINE SODIUM 5 MCG TABLET 10 MCG PO (08:38)
[2024-02-15] MEDS: METOPROLOL SUCCINATE 100 MG TAB.ER.24H 200 MG PO (08:38)
[2024-02-15] MEDS: CLINDAMYCIN PHOSPHATE/D5W 600 MG/50 ML PIGGYBACK 100 MG IV ×3 (08:42→21:31)
[2024-02-15] MEDS: PIPERACILLIN SODIUM/TAZOBACTAM 3.375 GM in 0.9 % SODIUM CHLORIDE 50 ML IV ×2 (09:33→22:05)
--- NOTE | 2024-02-15 10:41 | REH.PTDLY ---
Physical Therapy Daily Note PT Daily Note/Assess Start: 02/15/24 10:39 Freq: Status: Active Protocol: Document 02/15/24 10:39 CINTHIA (Rec: 02/15/24 10:40 CINTHIA [id number]) Visit Not Completed Visit Not Completed Due to: Pt level of alertness,Pt refusing Other Reason Visit Not Completed Pt sleeping first attempt, reports she is too tired and does not want therapy today. Attempted later in morning to see if pt was more alert, pt is out of room at x-ray/ imaging at this time. Physical Therapy Daily Note/Assessment Time In 10:35 Time Out 10:36
[2024-02-15] MEDS: IPRATROPIUM/ALBUTEROL SULFATE 3 ML AMPUL.NEB IH ×3 (11:15→22:40)
[2024-02-15] MEDS: SODIUM CHLORIDE 0.9% INHALATION 3 ML NEB 6 ML IH (11:15)
--- NOTE | 2024-02-15 11:31 | SWNOTE1 ---
SW attempted to see pt, but respiratory was in room. SW to attempt again later today.
--- NOTE | 2024-02-15 12:04 | SWNOTE1 ---
SW stopped back in to speak with pt. Grand-daughter in room as well. SW asked pt if she spoke to her family about rehab vs HH. She stated she is going to go home and family was in agreement. She stated her sons and daughter all live right beside her. She stated HH will assist with packing as well. SW let her know they will not everyday, but possibly 3 days of the week. Pt again stated she does want to go home and continue with the HH. SHARRI did ask if she spoke to family about the packing and she stated yes.
[2024-02-15] MEDS: KETOROLAC TROMETHAMINE 30 MG/ML VIAL 15 MG IVP ×2 (12:08→21:14)
[2024-02-15] MEDS: INSULIN ASPART 300 UNIT/3 ML PEN SUBQ (12:09)
[2024-02-15] MEDS: ATORVASTATIN CALCIUM 10 MG TABLET PO (21:12)
[2024-02-15] MEDS: ENSURE HP 237 ML LIQUID PO (21:12)
[2024-02-16] VITALS (23 sets, daily range): BP systolic 95–138; BP diastolic 69–79; PULSE 68–104; TEMP 36.4–36.7; O2SAT 90–95
[2024-02-16] MEDS: CLINDAMYCIN PHOSPHATE/D5W 600 MG/50 ML PIGGYBACK 100 MG IV ×4 (03:55→20:37)
[2024-02-16] MEDS: IPRATROPIUM/ALBUTEROL SULFATE 3 ML AMPUL.NEB IH (04:01)
[2024-02-16 04:51] LABS: Basophils Absolute Auto 0.1 10^3/uL (0.0-0.1); Basophils Percent Auto 0.4 % (0.2-2.0); Eosinophils Absolute Auto 0.2 10^3/uL (0.0-0.7); Eosinophils Percent Auto 1.3 % (0.9-7.0); Hematocrit 34.1 % (36.0-48.0); Hemoglobin 10.3 g/dL (12.0-16.0); Immature Granulocytes Abs Auto 0.09 10^3/uL (0.00-0.03); Immature Granulocytes Pct Auto 0.6 % (0.0-0.5); Lymphocytes Absolute Auto 1.9 10^3/uL (1.2-3.8); Lymphocytes Percent Auto 12.3 % (20.5-60.0); Mean Corpuscular HGB Conc 30.2 g/dL (29.9-35.2); Mean Corpuscular Volume 96.1 fL (81.0-99.0); Mean Platelet Volume 9.1 fL (9.5-13.5); Monocytes Absolute Auto 1.2 10^3/uL (0.3-0.8); Monocytes Percent Auto 7.6 % (1.7-12.0); Neutrophils Percent Auto 77.8 % (43.0-75.0); Platelet Count 352 10^3/uL (150-450); Red Blood Count 3.55 10^6/uL (4.20-5.40); Red Cell Distribution Width 14.6 % (11.0-15.0); White Blood Count 15.4 10^3/uL (4.0-11.0)
[2024-02-16 05:36] LABS: Alanine Aminotransferase 23 U/L (14-59); Albumin Globulin Ratio 0.4; Albumin Level 1.8 g/dL (3.4-5.0); Alkaline Phosphatase 92 U/L (46-116); Aspartate Amino Transferase 17 U/L (15-37); BUN Creatinine Ratio 40.7; Bilirubin Total 0.2 mg/dL (0.2-1.0); Calcium 9.1 mg/dL (8.5-10.1); Carbon Dioxide 26.8 mmol/L (21.0-32.0); Chloride 99 mmol/L (98-107); Estimated GFR (African America 25 (>=60); Estimated GFR (Non-African Ame 21 (>=60); Globulin 4.6 g/dL; Glucose 175 mg/dL (74-106); Potassium 4.8 mmol/L (3.5-5.1); Sodium 134 mmol/L (136-145); Total Protein 6.4 g/dL (6.4-8.2)
[2024-02-16] MEDS: LEVOTHYROXINE SODIUM 112 MCG TABLET PO (06:21)
--- NOTE | 2024-02-16 07:23 | P.PN_ITS ---
Progress Note: Subjective Subjective Interval history: Patient is up in chair, she states her breathing does feel better, however still requiring 6 L of supplemental oxygen, minimal cough Exam Constitutional Vital Signs, click to edit/add: Last Vital Signs Temp 98.1 F 02/16/24 04:00 Pulse 92 H 02/16/24 06:00 Resp 18 02/16/24 04:00 BP 111/75 02/16/24 06:25 Pulse Ox 90 L 02/16/24 04:02 O2 Del Method Nasal Cannula 02/16/24 04:00 O2 Flow Rate 6 02/16/24 04:02 Documenting provider has reviewed patient's vital signs: yes Common normals: no apparent distress HENMT Common normals: normocephalic Chest Common normals: inspection of chest normal and palpation of chest normal Respiratory Common normals: normal respiratory effort and no use of accessory muscles Auscultation: rales and rhonchi (Bases); no wheezes (Just had breathing treatment 2 hours ago, wheezing noted at that time) Cardio Common normals: no JVD and regular rate Rhythm: abnormal rhythm GI Common normals: Normal to inspection, nondistended, normoactive bowel sounds present Back & Pelvis Other: See surgery notes Progress Note: Objective Labs Labs: Short CBC 02/16/24 Range/Units 04:26 WBC 15.4 H (4.0-11.0) 10^3/uL Hgb 10.3 L (12.0-16.0) g/dL Hct 34.1 L (36.0-48.0) % Plt Count 352 (150-450) 10^3/uL BMP 02/16/24 04:26 Sodium 134 L Potassium 4.8 Chloride 99 Carbon Dioxide 26.8 BUN 92.0 H* Creatinine 2.26 H Glucose 175 H Calcium 9.1 Liver Function 02/16/24 Range/Units 04:26 Total Bilirubin 0.2 (0.2-1.0) mg/dL AST 17 (15-37) U/L ALT 23 (14-59) U/L Alkaline Phosphatase 92 (46-116) U/L Albumin 1.8 L (3.4-5.0) g/dL Progress Note: A&P Assessment and Plan (1) Abscess: Plan Admission Findings: Respiratory distress, acute hypoxia, borderline tachycardia, leukocytosis, thrombocythemia, acute kidney injury (baseline 1.16 creatinine, progressed to 1.68 which is 144.8% above baseline), uncontrolled diabetes mellitus secondary to gluteal abscess. I&D completed. Repeat CT scan showed abscess resolved, inflammatory response persisting. White blood cell count is elevated today. Repeat CBC later this morning to assess trend. No fevers. Blood cultures negative. 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 Echocardiogram from yesterday shows a slightly reduced ejection fraction compared to October. Consult to cardiology. Acute kidney injury-progressed to acute renal failure with creatinine now 2.26 and baseline creatinine 1.16 which is a 194.8% above baseline. Likely secondary to medications including diuresis, possibly Invokana, IV contrast, and Toradol. No further diuretics today. Will give small fluid bolus of 500 cc normal saline over 2 hours. Monitor daily. Thrombocythemia secondary to infectious process-resolved Uncontrolled diabetes mellitus-patient had episode of hypoglycemia. Improved so far today Severe protein calorie malnutrition-maintain current supplements-persisting COPD-patient does not like but tolerates the IPV treatments. She states she does feel better with those. Try to obtain sputum culture but she really is not coughing up much. Had wheezing earlier so we will add Pulmicort and low-dose steroids. Consult to pulmonology. Patient with tremor secondary to the albuterol. Change patient to Xopenex Tremor-likely secondary to the albuterol-change patient to Xopenex Atrial fibrillation with controlled ventricular response-restart 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 today. Does not look like she will need further surgical intervention Hypertension-continue with home medications-low at times-will back off on the hydralazine. Gout-not active-continue with home medication Hypothyroidism-had recent lab results-maintain current dosing History of gastritis-continue with home medication-does have mild anemia but not progressive. Doubt GI bleed but will check Hemoccult Iron deficiency anemia-monitor daily-Down today, check Hemoccult Constipation-Daily MiraLAX and start oral lactulose Bladder outlet obstruction-will remove Mccoy today and see how she progresses. No further diuretics may help with postvoid residuals Hypercholesterolemia-continue with home medications Admission status: Patient with progressive wound on gluteal area now forming an abscess. Debridement this morning. Medically necessary treatment will span 2 midnights. Maintain inpatient status. Overall patient worse today, still likely 2-3 more day hospital stay due to minimal improvement in oxygenation Urinary Catheter Management Urinary Catheter Management Urethral: Cath placed during this visit: yes Urethral indwelling: No Insertion date: 02/15/24 Insertion time: 08:56
--- NOTE | 2024-02-16 09:00 | CONS_ITS ---
CONSULTATION CONSULTATION DATE: ??02/16/2024 CONSULTING PHYSICIAN:? Gil Blake M.D. REASON FOR CONSULT: Increased BNP. HISTORY OF PRESENT ILLNESS:? Ms. Herman Horta is an 83-year-old female with a past medical history of CAD and PAD, status post stenting (PCI of RCA, with repeat PCI of RCA), hypertension, paroxysmal atrial fibrillation.? Patient was referred [facility] department from [facility] due to gluteal abscess.? While in the hospital, patient was noted to have respiratory concerns with acute hypoxia requiring 6 liters of nasal cannula.? As such, Cardiology was consulted for assistance and evaluation/management. Patient was interviewed and examined at bedside.? Patient adamantly denies current chest pain.? She reports that her shortness of breath is improving.? She denies any lower extremity edema, orthopnea, paroxysmal nocturnal dyspnea at the present time. Of note, patient had echocardiogram during this hospitalization.? Ejection fraction was found to be mildly reduced, although it was difficult to assess.? REVIEW OF SYSTEMS:? Ten point ROS was performed and is negative unless otherwise mentioned in HPI. PERTINENT MEDICAL HISTORY:? 1.? Heart failure. 2.? PAD. 3.? Atrial fibrillation. 3.? COPD. SURGICAL HISTORY: 1.? Hysterectomy. 2.? Appendectomy. 3.? Coronary stents. FAMILY HISTORY:? Noncontributory. SOCIAL HISTORY:? Noncontributory. CARDIAC HOME MEDICATIONS: 1.? Apixaban 5 mg daily. 2.? Aspirin 81 mg daily. 3.? Lasix 40 mg daily. 4.? Hydralazine 100 mg t.i.d. 5.? Imdur 60 mg daily. 6.? Toprol 200 mg daily. 7.? Simvastatin 20 mg daily. 8.? Amlodipine 10 mg daily. 9.? Spironolactone 50 mg daily. PHYSICAL EXAM: Vitals:? Blood pressure 116/76, heart rate 75, O2 sat 94. Constitutional:? No acute distress. HEENT:? Normocephalic, atraumatic.? Cardiac:? S1, S2 audible.? Regular rate and rhythm.? No rubs, gallops or murmurs. Chest:? Patient has crackles in the bilateral lung bases.? No increased work of breathing. GI:? Non-tender, non-distended. Extremities:? No edema, erythema or cyanosis. Neuro:? No focal neurological deficits. Psych:? Patient is cooperative. ASSESSMENT/PLAN: 1.? Acute on chronic heart failure: Patient?s ejection fraction was reported as mildly reduced.? However, it was also noted to be difficult to assess. Would recommend repeat echocardiogram with imaging enhancement agent once able for better assessment of ejection fraction.? Patient appears to be diuresing well with current diuretic regimen.? Will continue current diuretic regimen with strict ins and outs, daily standing weights, etc. 2.? Paroxysmal atrial fibrillation: Would recommend resuming anticoagulation once able. Continue patient?s current antihypertensive regimen. Would recommend continue uninterrupted aspirin due to history of stents. Additionally, continue statin and beta blockers for CAD. Patient will require close cardiac follow up.? Please do not hesitate to contact Cardiology with any questions or concerns. SHAKILA
[2024-02-16] MEDS: ISOSORBIDE MONONITRATE 60 MG TAB.ER.24H PO (09:03)
[2024-02-16] MEDS: LIOTHYRONINE SODIUM 5 MCG TABLET 10 MCG PO (09:03)
[2024-02-16] MEDS: ASPIRIN 81 MG TABLET.DR PO (09:03)
[2024-02-16] MEDS: JUVEN PACKET 1 PACKET PO (09:03)
[2024-02-16] MEDS: METOPROLOL SUCCINATE 100 MG TAB.ER.24H 200 MG PO (09:03)
[2024-02-16] MEDS: METHYLPREDNISOLONE SOD SUCC PF 125 MG/2 ML VIAL 40 MG IVP ×2 (09:03→16:44)
[2024-02-16] MEDS: APIXABAN 5 MG TABLET 2.5 MG PO ×2 (09:03→21:22)
[2024-02-16] MEDS: SUCRALFATE 1 GM TABLET PO ×4 (09:03→21:22)
[2024-02-16] MEDS: 0.9 % SODIUM CHLORIDE 500 ML 250 ML IV (09:04)
[2024-02-16] MEDS: PROSTAT 15 GM PROTEIN/100 CAL 30 ML LIQUID PACKET PO (09:04)
[2024-02-16] MEDS: INSULIN DETEMIR 300 UNIT/3 ML INSULN.PEN 10 UNIT SQ (09:04)
[2024-02-16] MEDS: INSULIN ASPART 300 UNIT/3 ML PEN SUBQ ×4 (09:04→21:22)
[2024-02-16] MEDS: PIPERACILLIN SODIUM/TAZOBACTAM 3.375 GM in 0.9 % SODIUM CHLORIDE 50 ML IV ×2 (09:46→21:10)
--- NOTE | 2024-02-16 10:41 | REH.PTDLY ---
Physical Therapy Daily Note PT Daily Note/Assess Start: 02/15/24 10:39 Freq: Status: Active Protocol: Document 02/16/24 10:36 CINTHIA (Rec: 02/16/24 10:41 CINTHIA [id number]) Physical Therapy Daily Note/Assessment Time In 10:10 Time Out 10:30 Subjective Pt in recliner, now on 6L of O2. Reports she is just so tired today. Willing to try some exs in the chair. Therapeutic Exercise Minutes (minutes) 16 Therapeutic Exercise Units 1 Therapeutic Exercise Treatment Instructed in B LE exs with legs elevated in recliner with exs including AP, QS, SLR, heel slides and abd slides 10x ea at slower pace. Verbal cues needed for QS for understanding. AA with SLR. With legs lowered instructed in LAQ and marching 10x ea. Therapeutic Activity Minutes (minutes) 3 Therapeutic Activity Units 0 Chair Transfer Ability Contact Guard Assist Therapeutic Activity Comments Pt performs sit to stand transfers CGA from chair. Pt stood in place for 1 min and then returns to sit due to fatigue. Pt states it feels good to stand to get off of wound on bottom. Total Therapy Minutes 19 Total Physical Therapy Units 1 Daily Note Summary Pt's SpO2 is at 85% on 6 L of O2 after seated exs using finger probe, retrieved ear probe and it reads 89%. Does not drop when pt stands. Pt is more lethargic today.
[2024-02-16 11:24] LABS: Basophils Percent Auto 0.2 % (0.2-2.0); Eosinophils Absolute Auto 0.1 10^3/uL (0.0-0.7); Eosinophils Percent Auto 0.9 % (0.9-7.0); Hematocrit 34.9 % (36.0-48.0); Hemoglobin 10.6 g/dL (12.0-16.0); Immature Granulocytes Abs Auto 0.12 10^3/uL (0.00-0.03); Immature Granulocytes Pct Auto 0.9 % (0.0-0.5); Lymphocytes Absolute Auto 0.6 10^3/uL (1.2-3.8); Lymphocytes Percent Auto 4.4 % (20.5-60.0); Mean Corpuscular HGB Conc 30.4 g/dL (29.9-35.2); Mean Corpuscular Hemoglobin 28.9 pg (26.7-34.0); Mean Corpuscular Volume 95.1 fL (81.0-99.0); Mean Platelet Volume 9.1 fL (9.5-13.5); Monocytes Absolute Auto 0.5 10^3/uL (0.3-0.8); Monocytes Percent Auto 3.3 % (1.7-12.0); Neutrophils Absolute Auto 12.7 10^3/uL (1.4-6.5); Neutrophils Percent Auto 90.3 % (43.0-75.0); Platelet Count 385 10^3/uL (150-450); Red Blood Count 3.67 10^6/uL (4.20-5.40); Red Cell Distribution Width 14.7 % (11.0-15.0); White Blood Count 14.1 10^3/uL (4.0-11.0)
[2024-02-16 11:34] LABS: Glucometer 381 mg/dL (74-106)
[2024-02-16] MEDS: IPRATROPIUM BROMIDE 0.5 MG/2.5 ML VIAL.NEB IH ×3 (11:34→22:24)
[2024-02-16] MEDS: BUDESONIDE 0.5 MG/2 ML AMPULE NEB IH ×2 (11:34→22:24)
[2024-02-16] MEDS: LEVALBUTEROL HCL 0.63 MG/3 ML VIAL.NEB 0.630000000000000004 MG IH ×3 (11:34→22:24)
--- NOTE | 2024-02-16 12:03 | P.PLCN_ITS ---
History of Present Illness History of Present Illness Consult date: 02/16/24 Requesting physician: Gil Blake Reason for consult: COPD and hypoxemia Chief complaint: WOUND CHECK gluteal absess hypoxia Narrative: 83yo female present with RLE wound/abscess. During hospitalization, developed acute hypoxic respiratory failure and is now on 6L/min. History of COPD - PFT 03/15/2022 noted restrictive spirometry with normal TLC suggesting an obesity pattern. She is a former smoker and quit ~2015. She is only on albuterol nebs TID and albuterol HFA ~2 times/day at home. She was started on IPV inpatient but hated it. She has a PEP currently. Developed tremors on albuterol which was changed to levalbuterol. She also is developing edema - echocardiogram shows reduction in her EF down to 45-50% - this is a change in her baseline. Now her creatinine has nearly doubled and she is getting fluid bolus. Review of Systems ROS Status of ROS 10 or more systems reviewed and unremark able except as noted in history and below (dyspnea, pain in her lower extremities R > L) [facility] Medical History (Updated 02/16/24 @ 12:21 by Will Bey DO) Cellulitis and abscess of left leg ?L03.116 - Cellulitis of left lower limb (ICD-10) ?L02.416 - Cutaneous abscess of left lower limb (ICD-10) Hyperkalemia ?E87.5 - Hyperkalemia (ICD-10) Moderate protein-calorie malnutrition ?E44.0 - Moderate protein-calorie malnutrition (ICD-10) CHF (congestive heart failure) ?I50.9 - Heart failure, unspecified (ICD-10) Hypoxia ?R09.02 - Hypoxemia (ICD-10) Acute infective exacerbation of chronic obstructive airway disease ?J44.1 - Chronic obstructive pulmonary disease with (acute) exacerbation (ICD-10) Weakness ?R53.1 - Weakness (ICD-10) Acute right hip pain ?M25.551 - Pain in right hip (ICD-10) Rheumatoid arthritis flare ?M06.9 - Rheumatoid arthritis, unspecified (ICD-10) Difficulty in walking ?R26.2 - Difficulty in walking, not elsewhere classified (ICD-10) Arthralgia ?M25.50 - Pain in unspecified joint (ICD-10) CAD, multiple vessel ?I25.10 - Atherosclerotic heart disease of [place] coronary artery without angina pectoris (ICD-10) Atrial fibrillation ?I48.91 - Unspecified atrial fibrillation (ICD-10) COPD (chronic obstructive pulmonary disease) ?J44.9 - Chronic obstructive pulmonary disease, unspecified (ICD-10) Gouty arthritis ?M10.9 - Gout, unspecified (ICD-10) Hypothyroidism (acquired) ?E03.9 - Hypothyroidism, unspecified (ICD-10) Hypokalemia ?E87.6 - Hypokalemia (ICD-10) Iron deficiency anemia ?D50.9 - Iron deficiency anemia, unspecified (ICD-10) Type 2 diabetes mellitus ?E11.9 - Type 2 diabetes mellitus without complications (ICD-10) Surgical History (Updated 10/14/23 @ 23:04 by Zena Bhakta) H/O: hysterectomy ?Z90.710 - Acquired absence of both cervix and uterus (ICD-10) History of appendectomy ?Z90.49 - Acquired absence of other specified parts of digestive tract (ICD- 10) H/O heart artery stent ?Z95.5 - Presence of coronary angioplasty implant and graft (ICD-10) Family History (Updated 10/14/23 @ 23:05 by Zena Bhakta) Father Family history of CHF (congestive heart failure) Family history of cancer Family history of hypertension Sister Family history of cancer Family history of diabetes mellitus Mother Family history of diabetes mellitus Family history of hypertension Social History (Updated 02/13/24 @ 18:21 by Kira Meza LPN) Within the past year, how often did you have a drink containing alcohol: never Within the past year, how often did you have six or more drinks on one occasion: never Score interpretation: A score less than 3 is consistent with normal alcohol consumption. Smoking status: Former smoker Non-prescribed substance use: denies use Previous occupational history: retired Highest level of school completed/degree received: high school graduate Are you now , , , , never or living with a partner: In a typical week, how many times do you talk on the telephone with family, friends, or neighbors: 3 or more times per week How often do you get together with friends or relatives: 3 or more times per week How often do you attend latter day or roman catholic services: 4 or more times per year Little interest or pleasure in doing things: not at all Feeling down, depressed, or hopeless: not at all Feel stressed/tense/nervous/anxious/difficulty sleeping: not at all Do you think of yourself as: straight/heterosexual Gender Identity: female Meds Home Medications and Allergies Home Medications ?Medication ?Instructions ?Recorded ?Confirmed ?Type albuterol sulfate 2.5 mg/3 mL 2.5 mg inhalation Q4H PRN 03/04/23 02/13/24 History (0.083 %) solution for nebulization shortness of breath or wheezing anastrozole 1 mg tablet 1 mg PO DAILY 03/04/23 02/13/24 History apixaban 5 mg tablet (Eliquis) 5 mg PO BID 03/04/23 02/13/24 History aspirin 81 mg tablet,delayed 81 mg PO DAILY 03/04/23 02/13/24 History release (Adult Low Dose Aspirin) furosemide 40 mg tablet 40 mg PO Q12H 03/04/23 02/13/24 History hydralazine 100 mg tablet 100 mg PO TID 03/04/23 02/13/24 History isosorbide mononitrate 60 mg 60 mg PO DAILY 03/04/23 02/13/24 History tablet,extended release 24 hr levothyroxine 112 mcg tablet 112 mcg PO DAILY 03/04/23 02/13/24 History liothyronine 5 mcg tablet 10 mcg PO DAILY 03/04/23 02/13/24 History metoprolol succinate 200 mg 200 mg PO DAILY 03/04/23 02/13/24 History tablet,extended release 24 hr simvastatin 20 mg tablet 20 mg PO BEDTIME 03/04/23 02/13/24 History sucralfate 1 gram tablet 1 g PO QID 03/04/23 02/13/24 History febuxostat 40 mg tablet 40 mg PO DAILY 08/20/23 02/13/24 History insulin glargine 100 unit/mL 10 unit subcut QAM 10/14/23 02/13/24 History subcutaneous solution (Lantus U-100 Insulin) insulin aspart U-100 100 unit/mL 3 - 15 unit subcut ACHS 10/17/23 02/13/24 History (3 mL) subcutaneous pen (Novolog FlexPen U-100 Insulin aspart) amoxicillin 875 mg-potassium 1 tab PO Q12H #20 tabs 10/18/23 02/13/24 Rx clavulanate 125 mg tablet amlodipine 10 mg tablet 10 mg PO .qd 02/13/24 02/13/24 History empagliflozin 10 mg tablet 10 mg PO .qd 02/13/24 02/13/24 History (Jardiance) hydrocodone 5 mg-acetaminophen 325 tab 02/13/24 History mg tablet spironolactone 50 mg tablet 50 mg PO .qd 02/13/24 02/13/24 History Allergies Allergy/AdvReac Type Severity Reaction Status Date / Time oxycodone AdvReac Severe nausea and Verified 08/20/23 08:04 vomiting tramadol AdvReac Severe Vomiting Verified 08/20/23 08:04 cefdinir AdvReac Unknown Vomiting Verified 08/20/23 08:04 ciprofloxacin AdvReac Unknown Vomiting Verified 08/20/23 08:04 Exam Constitutional Vital Signs, click to edit/add: Last Vital Signs Temp 98.1 F 02/16/24 08:34 Pulse 92 H 02/16/24 11:56 Resp 20 02/16/24 08:34 BP 109/70 02/16/24 08:34 Pulse Ox 90 L 02/16/24 11:37 O2 Del Method Nasal Cannula 02/16/24 11:37 O2 Flow Rate 6 02/16/24 11:37 Documenting provider has reviewed patient's vital signs: yes Common normals: no apparent distress HENMT Other: Wearing nasal cannula. No oral candidiasis. Chest Other: Thoracic kyphosis Respiratory Other: Diminished breath sounds in bases R > L. Egophony present in RLL, less in LLL. Dullness to percussion. Mild rales/crackles mid lung. Cardio Other: Irregularly irregular GI Inspection: central obesity Extremity Other: Trace - 1+ posterior left lower extremity edema. Distal RLE dressed. Neuro Motor exam: no tremor noted and no fasciculations Psych Appearance: grossly normal Attitude: calm and engaged Results Laboratory Findings Abnormal lab findings: Abnormal Labs 02/13/24 02/13/24 02/14/24 12:00 12:40 04:28 WBC 16.3 H 16.0 H RBC 3.96 L 3.98 L Hgb 11.5 L 11.5 L Hct Plt Count 459 H MPV 9.4 L 8.9 L Neut % (Auto) 79.8 H 85.3 H Lymph % (Auto) 10.5 L 5.7 L Eos % (Auto) 0.6 L 0.2 L Neut # (Auto) 13.0 H 13.6 H Lymph # (Auto) 0.9 L [place] # (Auto) 1.3 H 1.3 H Abs Immat Gran (auto) 0.13 H 0.11 H Imm/Tot Granulo (auto) 0.8 H 0.7 H Sodium Chloride 97 L Carbon Dioxide BUN 45.0 H 39.0 H Creatinine 1.68 H 1.52 H Est GFR ( Amer) 35 L 40 L Est GFR (Non-Af Amer) 29 L 33 L Glucose 107 H AST 13 L Alkaline Phosphatase 123 H NT-Pro-B Natriuret Pep 9484.0 H* 9140.0 H* Total Protein Albumin 2.5 L 2.3 L Ur Specific [place] <=1.005 A Urine WBC 0-2 A Ur Squamous Epith Cells Few A POC Glucose 02/15/24 02/15/24 02/16/24 03:19 04:20 04:26 WBC 15.4 H RBC 3.53 L 3.55 L Hgb 10.2 L 10.3 L Hct 33.7 L 34.1 L Plt Count MPV 8.9 L 9.1 L Neut % (Auto) 76.3 H 77.8 H Lymph % (Auto) 13.4 L 12.3 L Eos % (Auto) Neut # (Auto) 8.1 H 12.0 H Lymph # (Auto) [place] # (Auto) 0.9 H 1.2 H Abs Immat Gran (auto) 0.06 H 0.09 H Imm/Tot Granulo (auto) 0.6 H 0.6 H Sodium 134 L Chloride Carbon Dioxide 33.4 H BUN 58.0 H 92.0 H* Creatinine 1.75 H 2.26 H Est GFR ( Amer) 34 L 25 L Est GFR (Non-Af Amer) 28 L 21 L Glucose 110 H 175 H AST 10 L Alkaline Phosphatase NT-Pro-B Natriuret Pep 48573.0 H* 8221.0 H* Total Protein 6.3 L Albumin 1.9 L 1.8 L Ur Specific [place] Urine WBC Ur Squamous Epith Cells POC Glucose 48 L* 02/16/24 02/16/24 11:16 11:33 WBC 14.1 H RBC 3.67 L Hgb 10.6 L Hct 34.9 L Plt Count MPV 9.1 L Neut % (Auto) 90.3 H Lymph % (Auto) 4.4 L Eos % (Auto) Neut # (Auto) 12.7 H Lymph # (Auto) 0.6 L [place] # (Auto) Abs Immat Gran (auto) 0.12 H Imm/Tot Granulo (auto) 0.9 H Sodium Chloride Carbon Dioxide BUN Creatinine Est GFR ( Amer) Est GFR (Non-Af Amer) Glucose AST Alkaline Phosphatase NT-Pro-B Natriuret Pep Total Protein Albumin Ur Specific [place] Urine WBC Ur Squamous Epith Cells POC Glucose 381 H Diagnostic Findings Chest x-ray: report reviewed and image reviewed PFT's: report reviewed Assessment and Plan Assessment and Plan (1) Acute on chronic diastolic CHF (congestive heart failure): Assessment and Plan: This appears to be the main contributing factor to dyspnea and hypoxia - aggravated by sepsis/RLE abscess? EF reduced, losing HFpEF - developing systolic dysfunction? Defer management to hospitalist +/- cardiology consult (if seen inpatient) (2) Pleural effusion: Assessment and Plan: Bilateral effusions, R>L on exam. Prior imaging noted small effusions. Exacerbated by #1. Would recommend conservative treatment - diuretics, treating the underlying disorder(s). However, she is developing acute renal failure, so now she is being administered a fluid bolus to improve her renal function. She is on Eliquis for afib which would need to be held if a thoracentesis would be considered. If respiratory status worsens, obtain chest CT without contrast. (3) COPD with acute exacerbation: Assessment and Plan: Exacerbated by the above - pulmonary/bronchial edema from CHF. Former smoker, quit 2016. Only on albuterol at home. Do not feel this is the main instigating factor. Can treat with bronchodilators if help symptomatically. (4) Acute hypoxic respiratory failure: Assessment and Plan: Secondary to the above. Not on O2 @ baseline. (5) Elevated diaphragm: Assessment and Plan: Elevated right hemidiaphragm noted. Etiology unclear - paralysis? eventration? hepatomegaly? Needs sniff test for diagnosis - can be done outpatient. (6) Acute renal failure: Assessment and Plan: Consider nephrology consultation if no improvement. Qualifiers: Acute renal failure type: unspecified Qualified Code(s): N17.9 - Acute kidney failure, unspecified (7) History of tobacco abuse: Assessment and Plan: Quit 2015. Not a LDCT candidate - aged out of current guidelines. (8) Morbid obesity: Assessment and Plan: BMI 44. Weight loss indicated.
--- NOTE | 2024-02-16 14:48 | SWNOTE1 ---
SW spoke to pt again about rehab. Pt's significant other in room as well. Pt was sitting up in chair. She voiced she was feeling a little better and was able to move her legs some more. She voiced yesterday she was not feeling well. SHARRI encouraged her to do therapy and keep moving. Pt in agreement. At this time plan is to go home with [facility] when medically stable.
[2024-02-16] MEDS: HYDRALAZINE HCL 50 MG TABLET PO (16:44)
[2024-02-16 18:56] LABS: Glucometer 378 mg/dL (74-106)
[2024-02-16] MEDS: ATORVASTATIN CALCIUM 10 MG TABLET PO (21:22)
[2024-02-16] MEDS: TEMAZEPAM 15 MG CAPSULE PO (21:22)
[2024-02-17] VITALS (22 sets, daily range): BP systolic 111–137; BP diastolic 66–82; PULSE 72–949; TEMP 36.4–36.6; O2SAT 5–93
[2024-02-17] MEDS: METHYLPREDNISOLONE SOD SUCC PF 125 MG/2 ML VIAL 40 MG IVP ×2 (01:00→08:55)
[2024-02-17] MEDS: CLINDAMYCIN PHOSPHATE/D5W 600 MG/50 ML PIGGYBACK 100 MG IV ×4 (02:15→20:22)
[2024-02-17] MEDS: IPRATROPIUM BROMIDE 0.5 MG/2.5 ML VIAL.NEB IH ×4 (05:22→23:10)
[2024-02-17] MEDS: LEVALBUTEROL HCL 0.63 MG/3 ML VIAL.NEB 0.630000000000000004 MG IH ×4 (05:22→23:10)
[2024-02-17 05:41] LABS: Basophils Percent Auto 0.1 % (0.2-2.0); Hematocrit 34.3 % (36.0-48.0); Hemoglobin 10.5 g/dL (12.0-16.0); Immature Granulocytes Pct Auto 0.7 % (0.0-0.5); Lymphocytes Absolute Auto 0.8 10^3/uL (1.2-3.8); Lymphocytes Percent Auto 5.8 % (20.5-60.0); Mean Corpuscular HGB Conc 30.6 g/dL (29.9-35.2); Mean Corpuscular Hemoglobin 28.8 pg (26.7-34.0); Mean Corpuscular Volume 94.2 fL (81.0-99.0); Mean Platelet Volume 9.2 fL (9.5-13.5); Monocytes Absolute Auto 0.2 10^3/uL (0.3-0.8); Monocytes Percent Auto 1.5 % (1.7-12.0); Neutrophils Absolute Auto 12.5 10^3/uL (1.4-6.5); Neutrophils Percent Auto 91.9 % (43.0-75.0); Platelet Count 387 10^3/uL (150-450); Red Blood Count 3.64 10^6/uL (4.20-5.40); Red Cell Distribution Width 14.6 % (11.0-15.0); White Blood Count 13.6 10^3/uL (4.0-11.0)
[2024-02-17] MEDS: LEVOTHYROXINE SODIUM 112 MCG TABLET PO (05:56)
[2024-02-17 06:08] LABS: Alanine Aminotransferase 22 U/L (14-59); Albumin Globulin Ratio 0.4; Alkaline Phosphatase 92 U/L (46-116); Anion Gap 10.6; Aspartate Amino Transferase 11 U/L (15-37); BUN Creatinine Ratio 45.5; Bilirubin Total 0.3 mg/dL (0.2-1.0); Calcium 9.8 mg/dL (8.5-10.1); Carbon Dioxide 29.9 mmol/L (21.0-32.0); Chloride 102 mmol/L (98-107); Estimated GFR (African America 31 (>=60); Estimated GFR (Non-African Ame 26 (>=60); Globulin 4.9 g/dL; Glucose 218 mg/dL (74-106); Potassium 4.5 mmol/L (3.5-5.1); Sodium 138 mmol/L (136-145); Total Protein 6.9 g/dL (6.4-8.2)
[2024-02-17] MEDS: INSULIN ASPART 300 UNIT/3 ML PEN SUBQ ×4 (08:00→21:41)
[2024-02-17] MEDS: SUCRALFATE 1 GM TABLET PO ×4 (08:00→21:26)
[2024-02-17] MEDS: INSULIN DETEMIR 300 UNIT/3 ML INSULN.PEN 10 UNIT SQ (08:00)
[2024-02-17] MEDS: APIXABAN 5 MG TABLET 2.5 MG PO ×2 (08:09→21:26)
[2024-02-17] MEDS: JUVEN PACKET 1 PACKET PO (08:09)
[2024-02-17] MEDS: LIOTHYRONINE SODIUM 5 MCG TABLET 10 MCG PO (08:09)
[2024-02-17] MEDS: PROSTAT 15 GM PROTEIN/100 CAL 30 ML LIQUID PACKET PO (08:09)
[2024-02-17] MEDS: ENSURE HP 237 ML LIQUID PO (08:09)
[2024-02-17] MEDS: ISOSORBIDE MONONITRATE 60 MG TAB.ER.24H PO (08:09)
[2024-02-17] MEDS: METOPROLOL SUCCINATE 100 MG TAB.ER.24H 200 MG PO (08:10)
[2024-02-17] MEDS: ASPIRIN 81 MG TABLET.DR PO (08:10)
--- NOTE | 2024-02-17 08:19 | PC.NURSE ---
dressing change to buttocks done per previous shift at end of shift after BM
[2024-02-17] MEDS: 0.9 % SODIUM CHLORIDE 250 ML 10 ML IV (08:48)
[2024-02-17] MEDS: PIPERACILLIN SODIUM/TAZOBACTAM 3.375 GM in 0.9 % SODIUM CHLORIDE 50 ML IV ×2 (09:21→20:57)
--- NOTE | 2024-02-17 10:34 | PT.DAILY ---
Physical Therapy Daily Note PT Daily Note/Assess Start: 02/15/24 10:39 Freq: Status: Active Protocol: Document 02/17/24 10:30 MAXINE (Rec: 02/17/24 10:34 MAXINE [id number]) Visit Not Completed Visit Not Completed Visit Not Completed Due to: Other Other Reason Visit Not Completed Attempted full PT session x2 this AM but patient having bowl issues this AM. Was in room and talked to patient on 1st attempt. While talking with patient did observe sit to stand x1 with supervision. Patient reports has been up and down all morning, and keeps lifting buttocks off commode/chair to relieve pressure off wound. Also discussed chair exercises patient can complete to help maintain strength and patient verbalized understanding. When checking back on patient 2nd attempt patient was still NA. Physical Therapy Daily Note/Assessment Time In/Time Out Time In 10:30 Time Out 10:30 GG. Functional Abilities and Goals-Complete for Swing Bed Patients Only [id number]. Self-Care [id number]. Mobility
--- NOTE | 2024-02-17 10:47 | XR_ITS ---
The [address] [address] Patient Name: OSCAR MCLEOD MRN: [id number] date: 1940 Sex: F Assigned Patient Location: [place] Current Patient Location: [place] Accession/Order Number: [id number] Exam Date: 02/17/2024 11:05 Report Date: 02/18/2024 01:19 At the request of: CARLOZ ORTIZ Procedure: XR chest 1V EXAM: XR chest 1V HISTORY: Acute hypoxic respiratory failure COMPARISON: 02/15/2024 FINDINGS/IMPRESSION: 1. Bilateral small pleural effusions. Bibasilar patchy consolidation, similar as compared to the prior exams. 2. No pneumothorax. 3. No acute osseous abnormality. 4. Mild degeneration of the bilateral acromioclavicular joints. Electronically authenticated by: RAUL NGUYEN Date: 02/18/2024 01:19
--- NOTE | 2024-02-17 10:49 | PM.PLPN ---
Progress Note: A&P Assessment and Plan (1) Acute on chronic diastolic CHF (congestive heart failure): Assessment and Plan: Awaiting Cardiology consultation - will be several days because of the weekend. (2) Pleural effusion: Assessment and Plan: Bilateral effusions (R > L) based on exam. Secondary to #1. No significant change on exam from yesterday. Will order CXR. For thoracentesis, would need to hold Eliquis; and if CHF is not controlled, the effusion will just return. Recommend conservative treatment at this current time. (3) COPD with acute exacerbation: Assessment and Plan: Exacerbated by the above. The COPD component has minor contribution to her symptoms. (4) Acute hypoxic respiratory failure: Assessment and Plan: Secondary to the above. Continue attempting to wean FiO2. (5) Elevated diaphragm: Assessment and Plan: Elevated right hemidiaphragm noted. Question paralysis vs. hepatomegaly. Needs sniff test for diagnosis - can be done outpatient. (6) Acute renal failure: Assessment and Plan: Slight improvement in creatinine today. Qualifiers: Acute renal failure type: unspecified Qualified Code(s): N17.9 - Acute kidney failure, unspecified (7) History of tobacco abuse: Assessment and Plan: Quit 2015. Not a LDCT candidate - aged out of current guidelines. (8) Morbid obesity: Assessment and Plan: BMI 44.5. Weight loss advised. Subjective Subjective Interval history: Patient states she feels a little better, but still has LOYD. Remains on O2 ~5L/min. Denies chest pain. States her feet are burning and legs feel swollen. Exam Constitutional Vital Signs, click to edit/add: Last Vital Signs Temp 98 F 02/17/24 08:00 Pulse 89 02/17/24 08:00 Resp 20 02/17/24 08:00 BP 137/71 02/17/24 08:00 Pulse Ox 92 L 02/17/24 08:00 O2 Del Method Nasal Cannula 02/17/24 08:00 O2 Flow Rate 5 02/17/24 08:00 Documenting provider has reviewed patient's vital signs: yes Common normals: no apparent distress HENMT Other: Wearing nasal cannula. Chest Other: Thoracic kyphosis Respiratory Other: Diminished breath sounds in the bases with dullness to percussion and egophony, R > L. Crackles/rales mid lung field. No rhonchi. Cardio Other: Irregularly irregular, rate-controlled. GI Other: Soft Extremity Other: RLE dressed. LLE mild 1+ pitting edema. Neuro Other: Mild tremor? Psych Other: Appropriate affect
[2024-02-17] MEDS: BUDESONIDE 0.5 MG/2 ML AMPULE NEB IH ×2 (10:57→23:10)
[2024-02-17 11:17] LABS: Glucometer 388 mg/dL (74-106)
--- NOTE | 2024-02-17 14:02 | PM.PN ---
Progress Note: Subjective Subjective Interval history: Patient slowly improving. Reports less SOB and mild cough. Afebrile. Remains on 5 LPM. C/o SOB and fatigue with minimal exertion. Continued weakness and problems ambulating. No chest pain or palpitations. Normal appetite and no emesis or diarrhea. Exam Constitutional Vital Signs, click to edit/add: Last Vital Signs Temp 97.6 F 02/17/24 12:00 Pulse 94 H 02/17/24 12:00 Resp 20 02/17/24 12:00 BP 115/66 02/17/24 12:00 Pulse Ox 90 L 02/17/24 12:00 O2 Del Method Nasal Cannula 02/17/24 12:00 O2 Flow Rate 5 02/17/24 12:00 Documenting provider has reviewed patient's vital signs: yes Common normals: no apparent distress, oriented x3 and alert HENMT Common normals: normocephalic Eye Common normals: PERRL and EOMs intact bilaterally Respiratory Common normals: normal respiratory effort Auscultation: diminished lung sounds Cardio Common normals: regular rate, regular rhythm, no gallops, no murmurs and no rub GI Common normals: Normal to inspection, nondistended, normoactive bowel sounds present and non-tender Extremity General: edema (1+ pedal edema) Progress Note: Objective Labs Labs: Short CBC 02/17/24 Range/Units 04:15 WBC 13.6 H (4.0-11.0) 10^3/uL Hgb 10.5 L (12.0-16.0) g/dL Hct 34.3 L (36.0-48.0) % Plt Count 387 (150-450) 10^3/uL BMP 02/17/24 04:15 Sodium 138 Potassium 4.5 Chloride 102 Carbon Dioxide 29.9 BUN 85.0 H* Creatinine 1.87 H Glucose 218 H Calcium 9.8 Liver Function 02/17/24 Range/Units 04:15 Total Bilirubin 0.3 (0.2-1.0) mg/dL AST 11 L (15-37) U/L ALT 22 (14-59) U/L Alkaline Phosphatase 92 (46-116) U/L Albumin 2.0 L (3.4-5.0) g/dL Progress Note: A&P Assessment and Plan (1) Abscess, gluteal, right: (2) Acute on chronic diastolic CHF (congestive heart failure): (3) COPD with acute exacerbation: (4) Acute hypoxic respiratory failure: (5) Acute renal failure: Qualifiers: Acute renal failure type: unspecified Qualified Code(s): N17.9 - Acute kidney failure, unspecified (6) Pleural effusion: (7) Type 2 diabetes mellitus: Qualifiers: Diabetes mellitus half-way insulin use: without terminal supervisor use Diabetes mellitus complication status: without complication Qualified Code(s): E11.9 - Type 2 diabetes mellitus without complications (8) Anemia in stage 4 chronic kidney disease: (9) Morbid obesity: (10) History of tobacco abuse: (11) Elevated diaphragm: Plan Patient slowly improving and less SOB. Wean oxygen as tolerated. Monitor fluid status and diurese as needed. Continue steroids and breathing treatments. Continue antibiotics for abscess. Continue PT for weakness. Renal function improving and monitor. Urinary Catheter Management Urinary Catheter Management Urethral: Cath placed during this visit: yes, but has since been removed by the nurse Urethral indwelling: No Insertion date: 02/15/24 Insertion time: 08:56 Removal date: 02/17/24 Removal time: 06:05
[2024-02-17 15:59] LABS: Glucometer 371 mg/dL (74-106)
[2024-02-17] MEDS: ATORVASTATIN CALCIUM 10 MG TABLET PO (21:26)
[2024-02-17] MEDS: TEMAZEPAM 15 MG CAPSULE PO (21:26)
[2024-02-18] VITALS (21 sets, daily range): BP systolic 116–151; BP diastolic 72–87; PULSE 80–104; TEMP 36.3–36.6; O2SAT 91–96
[2024-02-18] MEDS: CLINDAMYCIN PHOSPHATE/D5W 600 MG/50 ML PIGGYBACK 100 MG IV ×4 (03:34→20:28)
[2024-02-18] MEDS: IPRATROPIUM BROMIDE 0.5 MG/2.5 ML VIAL.NEB IH ×4 (04:00→22:57)
[2024-02-18] MEDS: LEVALBUTEROL HCL 0.63 MG/3 ML VIAL.NEB 0.630000000000000004 MG IH ×4 (04:00→22:57)
[2024-02-18] MEDS: LEVOTHYROXINE SODIUM 112 MCG TABLET PO (05:47)
[2024-02-18 05:49] LABS: Basophils Percent Auto 0.1 % (0.2-2.0); Hematocrit 33.3 % (36.0-48.0); Hemoglobin 10.7 g/dL (12.0-16.0); Immature Granulocytes Abs Auto 0.16 10^3/uL (0.00-0.03); Immature Granulocytes Pct Auto 1.1 % (0.0-0.5); Lymphocytes Absolute Auto 1.3 10^3/uL (1.2-3.8); Lymphocytes Percent Auto 8.6 % (20.5-60.0); Mean Corpuscular HGB Conc 32.1 g/dL (29.9-35.2); Mean Corpuscular Hemoglobin 29.8 pg (26.7-34.0); Mean Corpuscular Volume 92.8 fL (81.0-99.0); Mean Platelet Volume 9.3 fL (9.5-13.5); Monocytes Absolute Auto 0.9 10^3/uL (0.3-0.8); Monocytes Percent Auto 5.9 % (1.7-12.0); Neutrophils Absolute Auto 12.2 10^3/uL (1.4-6.5); Neutrophils Percent Auto 84.3 % (43.0-75.0); Platelet Count 420 10^3/uL (150-450); Red Blood Count 3.59 10^6/uL (4.20-5.40); Red Cell Distribution Width 14.8 % (11.0-15.0); White Blood Count 14.5 10^3/uL (4.0-11.0)
[2024-02-18 06:04] LABS: Alanine Aminotransferase 22 U/L (14-59); Albumin Globulin Ratio 0.5; Albumin Level 2.1 g/dL (3.4-5.0); Alkaline Phosphatase 84 U/L (46-116); Anion Gap 8.8; Aspartate Amino Transferase 7 U/L (15-37); BUN Creatinine Ratio 48.4; Bilirubin Total 0.3 mg/dL (0.2-1.0); Calcium 9.7 mg/dL (8.5-10.1); Carbon Dioxide 32.5 mmol/L (21.0-32.0); Chloride 102 mmol/L (98-107); Estimated GFR (African America 39 (>=60); Estimated GFR (Non-African Ame 33 (>=60); Globulin 4.5 g/dL; Glucose 202 mg/dL (74-106); Potassium 4.3 mmol/L (3.5-5.1); Sodium 139 mmol/L (136-145); Total Protein 6.6 g/dL (6.4-8.2)
--- NOTE | 2024-02-18 08:27 | P.PN_ITS ---
Progress Note: Subjective Subjective Interval history: Patient still feels significant weakness. In talking with her, her breathing definitely sounds better, less respiratory distress with conversation Exam Constitutional Vital Signs, click to edit/add: Last Vital Signs Temp 97.4 F L 02/18/24 05:00 Pulse 87 02/18/24 06:00 Resp 20 02/18/24 05:00 BP 116/72 02/18/24 05:00 Pulse Ox 91 L 02/18/24 05:00 O2 Del Method Room Air 02/18/24 05:00 O2 Flow Rate 4 02/18/24 04:01 Documenting provider has reviewed patient's vital signs: yes Common normals: no apparent distress HENMT Common normals: normocephalic Chest Common normals: inspection of chest normal and palpation of chest normal Respiratory Common normals: normal respiratory effort and no use of accessory muscles Auscultation: rales bilateral, rhonchi (Bases) and wheezes (Has some wheezes this morning. Due for breathing treatment) Cardio Common normals: no JVD and regular rate Rhythm: abnormal rhythm GI Common normals: Normal to inspection, nondistended, normoactive bowel sounds present Back & Pelvis Other: See surgery notes Extremity Other: Compression wrap on right leg, left leg with 1-2+ edema-restarting Lasix Progress Note: Objective Labs Labs: Short CBC 02/18/24 Range/Units 05:04 WBC 14.5 H (4.0-11.0) 10^3/uL Hgb 10.7 L (12.0-16.0) g/dL Hct 33.3 L (36.0-48.0) % Plt Count 420 (150-450) 10^3/uL BMP 02/18/24 05:04 Sodium 139 Potassium 4.3 Chloride 102 Carbon Dioxide 32.5 H BUN 74.0 H Creatinine 1.53 H Glucose 202 H Calcium 9.7 Liver Function 02/18/24 Range/Units 05:04 Total Bilirubin 0.3 (0.2-1.0) mg/dL AST 7 L (15-37) U/L ALT 22 (14-59) U/L Alkaline Phosphatase 84 (46-116) U/L Albumin 2.1 L (3.4-5.0) g/dL Progress Note: A&P Assessment and Plan (1) Abscess, gluteal, right: (2) Acute on chronic diastolic CHF (congestive heart failure): (3) COPD with acute exacerbation: (4) Acute hypoxic respiratory failure: (5) Acute renal failure: Qualifiers: Acute renal failure type: unspecified Qualified Code(s): N17.9 - Acute kidney failure, unspecified (6) Pleural effusion: (7) Type 2 diabetes mellitus: Qualifiers: Diabetes mellitus roasterman insulin use: without jail use Diabetes mellitus complication status: without complication Qualified Code(s): E11.9 - Type 2 diabetes mellitus without complications (8) Anemia in stage 4 chronic kidney disease: (9) Morbid obesity: (10) History of tobacco abuse: (11) Elevated diaphragm: Plan Admission Findings: Respiratory distress, acute hypoxia, borderline tachycardia, leukocytosis, thrombocythemia, acute kidney injury (baseline 1.16 creatinine, progressed to 1.68 which is 144.8% above baseline), uncontrolled diabetes mellitus secondary to gluteal abscess. Unable to get cultures from wound, blood cultures negative. Continue current treatment. White blood cell count elevated but she did receive steroids a previous day. With acute hypoxia resulting in 6 L by nasal cannula and history of chronic combined congestive heart failure with cardiomegaly, with acute on chronic co mbined congestive heart failure. Right pleural effusion persisting.-BNP is better. O2 saturation stable with weaning supplemental oxygen down to 4 L. Overall that would be considered progress Acute kidney injury-progressed to acute renal failure with creatinine uo to 2.26 and baseline creatinine 1.16 which was 194.8% above baseline. Renal failure improving. Not back to baseline yet. But do need to restart her diuretics today. Thrombocythemia secondary to infectious process-resolved Uncontrolled diabetes mellitus-patient had episode of hypoglycemia. Elevated today secondary to steroids-continue to monitor, increase sliding scale Severe protein calorie malnutrition-maintain current supplements-persisting COPD-unable to tolerate the IPV treatments. Will discontinue those. Continue with aerosol treatments. Tolerating the Xopenex better. Reviewed case with pulmonology. Agree with input and findings from pulmonology. Tremor-likely secondary to the albuterol-better with Xopenex Atrial fibrillation with controlled ventricular response-restart 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 today. Does not look like she will need further surgical intervention Hypertension-continue with home medications-low at times-blood pressure better. Gout-not active-continue with home medication Hypothyroidism-had recent lab results-maintain current dosing History of gastritis-continue with home medication-does have mild anemia but not progressive. Continue to monitor Iron deficiency anemia-monitor daily-Down today, continue to monitor Constipation-resolved, now with diarrhea. Pretty persisting. Will back off on medications for constipation but also with being on antibiotics need to check stool for C. difficile Bladder outlet obstruction-will remove Mccoy today and see how she progresses. So far stable Hypercholesterolemia-continue with home medications Admission status: Patient with progressive wound on gluteal area now forming an abscess. Debridement this morning. Medically necessary treatment will span 2 midnights. Maintain inpatient status. Overall patient worse today, still likely 2-3 more day hospital stay due to minimal improvement in oxygenation Urinary Catheter Management Urinary Catheter Management Urethral: Cath placed during this visit: yes, but has since been removed by the nurse Urethral indwelling: No Insertion date: 02/15/24 Insertion time: 08:56 Removal date: 02/17/24 Removal time: 06:05
[2024-02-18] MEDS: SUCRALFATE 1 GM TABLET PO ×4 (08:50→22:41)
[2024-02-18] MEDS: PROSTAT 15 GM PROTEIN/100 CAL 30 ML LIQUID PACKET PO ×2 (08:50→20:26)
[2024-02-18] MEDS: FUROSEMIDE 40 MG/4 ML VIAL IVP ×2 (08:51→20:27)
[2024-02-18] MEDS: ISOSORBIDE MONONITRATE 60 MG TAB.ER.24H PO (08:51)
[2024-02-18] MEDS: JUVEN PACKET 1 PACKET PO ×2 (08:51→20:26)
[2024-02-18] MEDS: ASPIRIN 81 MG TABLET.DR PO (08:51)
[2024-02-18] MEDS: APIXABAN 5 MG TABLET 2.5 MG PO ×2 (08:52→20:27)
[2024-02-18] MEDS: INSULIN DETEMIR 300 UNIT/3 ML INSULN.PEN 10 UNIT SQ (08:52)
[2024-02-18] MEDS: LIOTHYRONINE SODIUM 5 MCG TABLET 10 MCG PO (08:52)
[2024-02-18] MEDS: METOPROLOL SUCCINATE 100 MG TAB.ER.24H 200 MG PO (08:52)
[2024-02-18] MEDS: INSULIN ASPART 300 UNIT/3 ML PEN SUBQ ×4 (08:59→22:41)
[2024-02-18] MEDS: 0.9 % SODIUM CHLORIDE 250 ML 10 ML IV (09:41)
[2024-02-18] MEDS: PIPERACILLIN SODIUM/TAZOBACTAM 3.375 GM in 0.9 % SODIUM CHLORIDE 50 ML IV ×2 (09:42→20:28)
[2024-02-18 10:22] LABS: Adenovirus F 40/41 NOT DETECTED (NOT DETECTE); Astrovirus NOT DETECTED (NOT DETECTE); Campylobacter NOT DETECTED (NOT DETECTE); Cryptosporidium NOT DETECTED (NOT DETECTE); Cyclospora cayetanensis NOT DETECTED (NOT DETECTE); Entamoeba histolytica NOT DETECTED (NOT DETECTE); Enteroaggregative E.coli NOT DETECTED (NOT DETECTE); Enteropathogenic E.coli NOT DETECTED (NOT DETECTE); Enterotoxigenic E. coli NOT DETECTED (NOT DETECTE); Giardia lamblia NOT DETECTED (NOT DETECTE); Norovirus GI/GII NOT DETECTED (NOT DETECTE); Plesiomonas shigelloides NOT DETECTED (NOT DETECTE); Rotavirus A NOT DETECTED (NOT DETECTE); Salmonella NOT DETECTED (NOT DETECTE); Sapovirus NOT DETECTED (NOT DETECTE); Shiga-like toxin-producing E.C NOT DETECTED (NOT DETECTE); Shigella/Enteroinvasive E.coli NOT DETECTED (NOT DETECTE); Vibrio NOT DETECTED (NOT DETECTE); Vibrio cholerae NOT DETECTED (NOT DETECTE); Yersinia enterocolitica NOT DETECTED (NOT DETECTE)
[2024-02-18] MEDS: BUDESONIDE 0.5 MG/2 ML AMPULE NEB IH ×2 (10:46→22:57)
[2024-02-18 11:07] LABS: Occult Blood Positive
[2024-02-18] MEDS: HYDRALAZINE HCL 50 MG TABLET PO ×2 (13:05→22:41)
[2024-02-18] MEDS: ENSURE HP 237 ML LIQUID PO (20:26)
--- NOTE | 2024-02-18 21:28 | PC.NURSE ---
Pure wick placed per Pt request after returned from the bathroom. Olga area cleansed then Pure wick placed. Suction on to low continuous.
[2024-02-18] MEDS: ATORVASTATIN CALCIUM 10 MG TABLET PO (22:41)
[2024-02-18] MEDS: TEMAZEPAM 15 MG CAPSULE PO (22:41)
[2024-02-19] VITALS (16 sets, daily range): BP systolic 116–137; BP diastolic 62–88; PULSE 80–120; TEMP 36.6–36.8; O2SAT 91–94
[2024-02-19] MEDS: CLINDAMYCIN PHOSPHATE/D5W 600 MG/50 ML PIGGYBACK 100 MG IV ×3 (02:01→14:16)
[2024-02-19] MEDS: IPRATROPIUM BROMIDE 0.5 MG/2.5 ML VIAL.NEB IH (04:02)
[2024-02-19] MEDS: LEVALBUTEROL HCL 0.63 MG/3 ML VIAL.NEB 0.630000000000000004 MG IH (04:02)
[2024-02-19 05:15] LABS: Basophils Percent Auto 0.2 % (0.2-2.0); Eosinophils Absolute Auto 0.1 10^3/uL (0.0-0.7); Eosinophils Percent Auto 0.5 % (0.9-7.0); Hematocrit 36.7 % (36.0-48.0); Hemoglobin 11.2 g/dL (12.0-16.0); Immature Granulocytes Abs Auto 0.18 10^3/uL (0.00-0.03); Immature Granulocytes Pct Auto 1.3 % (0.0-0.5); Lymphocytes Absolute Auto 2.2 10^3/uL (1.2-3.8); Lymphocytes Percent Auto 15.7 % (20.5-60.0); Mean Corpuscular HGB Conc 30.5 g/dL (29.9-35.2); Mean Corpuscular Hemoglobin 28.4 pg (26.7-34.0); Mean Corpuscular Volume 92.9 fL (81.0-99.0); Mean Platelet Volume 9.1 fL (9.5-13.5); Monocytes Absolute Auto 1.2 10^3/uL (0.3-0.8); Monocytes Percent Auto 8.1 % (1.7-12.0); Neutrophils Absolute Auto 10.6 10^3/uL (1.4-6.5); Neutrophils Percent Auto 74.2 % (43.0-75.0); Platelet Count 454 10^3/uL (150-450); Red Blood Count 3.95 10^6/uL (4.20-5.40); Red Cell Distribution Width 14.9 % (11.0-15.0); White Blood Count 14.3 10^3/uL (4.0-11.0)
[2024-02-19 05:27] LABS: Anion Gap 7.2; BUN Creatinine Ratio 54.8; Carbon Dioxide 36.7 mmol/L (21.0-32.0); Chloride 102 mmol/L (98-107); Estimated GFR (African America 46 (>=60); Estimated GFR (Non-African Ame 38 (>=60); Glucose 95 mg/dL (74-106); Potassium 3.9 mmol/L (3.5-5.1); Sodium 142 mmol/L (136-145)
[2024-02-19] MEDS: LEVOTHYROXINE SODIUM 112 MCG TABLET PO (05:31)
[2024-02-19] MEDS: HYDRALAZINE HCL 50 MG TABLET PO ×2 (05:31→14:16)
[2024-02-19 05:42] LABS: Vancomycin Trough 5.7 ug/mL (5.0-20.0)
--- NOTE | 2024-02-19 07:59 | P.PN_ITS ---
Progress Note: Subjective Subjective Interval history: Patient still appears to be significantly weak. Reviewed labs with patient. Labs are better but she is not Exam Constitutional Vital Signs, click to edit/add: Last Vital Signs Temp 97.9 F 02/19/24 04:39 Pulse 107 H 02/19/24 06:00 Resp 18 02/19/24 04:39 BP 137/88 02/19/24 04:39 Pulse Ox 91 L 02/19/24 04:39 O2 Del Method Nasal Cannula 02/19/24 04:39 O2 Flow Rate 2 02/19/24 04:02 Documenting provider has reviewed patient's vital signs: yes Common normals: no apparent distress HENMT Common normals: normocephalic Chest Common normals: inspection of chest normal and palpation of chest normal Respiratory Common normals: normal respiratory effort and no use of accessory muscles Auscultation: rales (Minimal, much improved) bilateral, rhonchi (Bases) and wheezes (Clear today but just had breathing treatment) Cardio Common normals: no JVD and regular rate Rhythm: abnormal rhythm GI Common normals: Normal to inspection, nondistended, normoactive bowel sounds present Back & Pelvis Other: See surgery notes Extremity Other: Compression wrap on right leg, left leg with 1-2+ edema-restarting Lasix Progress Note: Objective Labs Labs: Short CBC 02/19/24 Range/Units 04:35 WBC 14.3 H (4.0-11.0) 10^3/uL Hgb 11.2 L (12.0-16.0) g/dL Hct 36.7 (36.0-48.0) % Plt Count 454 H (150-450) 10^3/uL BMP 02/19/24 04:35 Sodium 142 Potassium 3.9 Chloride 102 Carbon Dioxide 36.7 H BUN 74.0 H Creatinine 1.35 H Glucose 95 Calcium 10.0 Progress Note: A&P Assessment and Plan (1) Abscess, gluteal, right: (2) Acute on chronic diastolic CHF (congestive heart failure): (3) COPD with acute exacerbation: (4) Acute hypoxic respiratory failure: (5) Acute renal failure: Qualifiers: Acute renal failure type: unspecified Qualified Code(s): N17.9 - Acute kidney failure, unspecified (6) Pleural effusion: (7) Type 2 diabetes mellitus: Qualifiers: Diabetes mellitus complication status: without complication Diabetes mellitus usp insulin use: without exterminator use Qualified Code(s): E11.9 - Type 2 diabetes mellitus without complications (8) Anemia in stage 4 chronic kidney disease: (9) Morbid obesity: (10) History of tobacco abuse: (11) Elevated diaphragm: Plan Admission Findings: Respiratory distress, acute hypoxia, borderline tachycardia, leukocytosis, thrombocythemia, acute kidney injury (baseline 1.16 creatinine, progressed to 1.68 which is 144.8% above baseline), uncontrolled diabetes mellitus secondary to gluteal abscess. Blood cultures negative. White blood cell count maintaining mild elevation. With acute hypoxia resulting in 6 L by nasal cannula and history of chronic combined congestive heart failure with cardiomegaly, with acute on chronic combined congestive heart failure. Right pleural effusion persisting. BNP and oxygenation are much improved. Down to 2 L. Continue with current medical management Acute kidney injury-progressed to acute renal failure with creatinine uo to 2.26 and baseline creatinine 1.16 which was 194.8% above baseline.-This continues to improve. Not quite back to baseline. Started Lasix yesterday we will see how it progresses over the next couple days Thrombocythemia secondary to infectious process-back slightly elevated today. Continue to monitor Uncontrolled diabetes mellitus-patient had episode of hypoglycemia. Maintain persistent elevation likely related to infectious process. Adjust long-acting insulin today Severe protein calorie malnutrition-maintain current supplements-persisting COPD-continue with current medical management. Oxygenation improving. Tremor-likely secondary to the albuterol-better with Xopenex-improved Atrial fibrillation with controlled ventricular response-restart 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 today. Does not look like she will need further surgical intervention Hypertension-continue with home medications-low at times-blood pressure better. Gout-not active-continue with home medication Hypothyroidism-had recent lab results-maintain current dosing History of gastritis-continue with home medication-does have mild anemia but not progressive. Continue to monitor Iron deficiency anemia-monitor daily-Down today, continue to monitor Constipation-resolved, now with diarrhea. Check on stool cultures Bladder outlet obstruction-will remove Mccoy today and see how she progresses. So far stable Hypercholesterolemia-continue with home medications Admission status: Patient with progressive wound on gluteal area now forming an abscess. Debridement this morning. Medically necessary treatment will span 2 midnights. Maintain inpatient status. Overall patient worse today, still likely 2-3 more day hospital stay due to minimal improvement in oxygenation Discussed with patient her need for rehab. Will work on that process today. Physical therapy to reevaluate today for possible rehab potential Urinary Catheter Management Urinary Catheter Management Urethral: Cath placed during this visit: yes, but has since been removed by the nurse Urethral indwelling: No Insertion date: 02/15/24 Insertion time: 08:56 Removal date: 02/17/24 Removal time: 06:05
[2024-02-19] MEDS: SUCRALFATE 1 GM TABLET PO ×2 (08:12→11:24)
[2024-02-19] MEDS: JUVEN PACKET 1 PACKET PO (09:22)
[2024-02-19] MEDS: ASPIRIN 81 MG TABLET.DR PO (09:22)
[2024-02-19] MEDS: LIOTHYRONINE SODIUM 5 MCG TABLET 10 MCG PO (09:22)
[2024-02-19] MEDS: PROSTAT 15 GM PROTEIN/100 CAL 30 ML LIQUID PACKET PO (09:22)
[2024-02-19] MEDS: APIXABAN 5 MG TABLET 2.5 MG PO (09:23)
[2024-02-19] MEDS: INSULIN DETEMIR 300 UNIT/3 ML INSULN.PEN 20 UNIT SQ (09:24)
[2024-02-19] MEDS: FUROSEMIDE 40 MG/4 ML VIAL IVP (09:31)
--- NOTE | 2024-02-19 10:51 | REH.PTDLY ---
Physical Therapy Daily Note PT Daily Note/Assess Start: 02/15/24 10:39 Freq: Status: Active Protocol: Document 02/19/24 10:41 CINTHIA (Rec: 02/19/24 10:50 CINTHIA [id number]) Physical Therapy Daily Note/Assessment Time In 10:10 Time Out 10:38 Subjective Pt up in chair, busy morning with and nurses in and out. Pt reports she does not prefer to go to rehab, just wants to go home. Granddaughter/caregiver in room at time of rx. Reports she thinks pt is hesitant to go because last time they said she'd only be there for 1 week and they ended up being there for 3 months. Therapeutic Exercise Minutes (minutes) 6 Therapeutic Exercise Units 1 Therapeutic Exercise Treatment Instructed in seated LAQ, marching and HR 10x ea for leg mobility and strength. Therapeutic Activity Minutes (minutes) 17 Therapeutic Activity Units 1 Therapeutic Activity Comments Pt able to perform sit to stand transfers CGA. Gait training with rollator 36 feet CGA on 2 L of O2. Pt takes seated rest break and then ambulates another 24 feet. Pt unweights bottom by standing statically at chair 2x during rx due to pain in R buttocks. 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 Total Therapy Minutes 23 Total Physical Therapy Units 2 Daily Note Summary Pt could benefit from SNF stay to improve strength, however pt states she wants to go home . There is someone at home with patient 03/04 per granddaughter. Pt is doing better compared to Monday/ Monday, but still fatigues with short gait distances and is SOB with 2 L of O2. O2 sats do not drop though and remain at 92%. Pt would need O2 for at home if she goes there. Educated pt and granddaughter on benefits of going SNF vs. HH.
[2024-02-19] MEDS: PIPERACILLIN SODIUM/TAZOBACTAM 3.375 GM in 0.9 % SODIUM CHLORIDE 50 ML IV (11:22)
[2024-02-19] MEDS: INSULIN ASPART 300 UNIT/3 ML PEN SUBQ (11:24)
--- NOTE | 2024-02-19 13:36 | SWNOTE1 ---
SW spoke pt and grand-daughter in room. SW spoke to them about rehab. Pt does feel she needs it and she wants to talk to other family members to see if they agree. SW went back in room and grand-daughter asked if she had skilled days left. SW spoke to Italia at [facility] and gave SW the dates she was there. Pt used 84 days at rehab, and she would have 16 days left. SW let pt know and she would like to try rehab again at [facility] for those days to get stronger. Referral sent to [facility]. Referral included face sheet, ED note, H&P, provider notes, case management report, wound consult, nursing notes, diagnostic imaging, med list, and PT/OT notes.
[2024-02-19] MEDS: 0.9 % SODIUM CHLORIDE 250 ML 10 ML IV (14:16)
--- NOTE | 2024-02-19 14:36 | SWNOTE1 ---
[facility] is able to accept. SHARRI let Dr. Blake know. Pt will be discharged today. SHARRI called and set up trips for 4:00. SHARRI notified nursing and [facility]. SHARRI let family know as well. SHARRI completed HENS and faxed over dc med rec to [facility].
--- NOTE | 2024-02-19 14:39 | P.DS_ITS ---
DS: Providers Provider Date of admission: 02/13/24 17:30 Primary care physician: Gil Blake MD Consults: 02/13/24 16:52 Occupational Therapy Eval and Treat Routine Reason for consultation: Ambulatory dysfunction/weakness Physical Therapy Eval and Treat Routine Reason for consultation: Ambulatory dysfunction/weakness 02/13/24 16:54 Consult to General Surgeon Routine Consulting Provider: Mahamed Francois Reason for consultation: Gluteal abscess 02/14/24 07:03 Consult to Pharmacy Routine Consulting Provider: Reason for consultation: Please Lamona me when Med Rec is Updated Has provider been notified: No 02/15/24 07:52 Consult to Cardiology Routine Reason for consultation: elevated bnp Has provider been notified: No 02/16/24 07:15 Consult to Pulmonology Routine Consulting Provider: Will Bey Reason for consultation: Hypoxia Has provider been notified: No 02/19/24 07:58 Physical Therapy Eval and Treat Routine Reason for consultation: assess rehab potential Has provider been notified: No Instructions:: assess rehab potential DS: Diagnosis Discharge Diagnosis (1) Abscess, gluteal, right: (2) Acute on chronic diastolic CHF (congestive heart failure): (3) COPD with acute exacerbation: (4) Acute hypoxic respiratory failure: (5) Acute renal failure: Qualifiers: Acute renal failure type: unspecified Qualified Code(s): N17.9 - Acute kidney failure, unspecified (6) Pleural effusion: (7) Type 2 diabetes mellitus: Qualifiers: Diabetes mellitus senior care insulin use: without technician terminal and repeater use Diabetes mellitus complication status: without complication Qualified Code(s): E11.9 - Type 2 diabetes mellitus without complications (8) Anemia in stage 4 chronic kidney disease: (9) Morbid obesity: (10) History of tobacco abuse: (11) Elevated diaphragm: Plan Admission Findings: Respiratory distress, acute hypoxia, borderline tachycardia, leukocytosis, thrombocythemia, acute kidney injury (baseline 1.16 creatinine, progressed to 1.68 which is 144.8% above baseline), uncontrolled diabetes mellitus secondary to gluteal abscess. Improving at the time of discharge With acute hypoxia resulting in 6 L by nasal cannula and history of chronic combined congestive heart failure with cardiomegaly, with acute on chronic combined congestive heart failure. Right pleural effusion persisting. BNP and oxygenation are much improved. Down to 2 L. Improving at the time of discharge Acute kidney injury-progressed to acute renal failure with creatinine uo to 2.26 and baseline creatinine 1.16 which was 194.8% above baseline.-This continues to improve. Not quite back to baseline. Improving at the time of discharge Thrombocythemia secondary to infectious process-back slightly elevated today. Elevated at the time of discharge Uncontrolled diabetes mellitus-patient had episode of hypoglycemia. Elevated at the time of discharge Severe protein calorie malnutrition-maintain current supplements- Improving at the time of discharge COPD-continue with current medical management. Improving at the time of discharge Tremor-likely secondary to the albuterol-better with Xopenex-resolved at discharge Atrial fibrillation with controlled ventricular response-restart 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 today. Improving at the time of discharge Hypertension-continue with home medications- Improving at the time of discharge Gout-not active-continue with home medication Hypothyroidism-had recent lab results-maintain current dosing History of gastritis-continue with home medication-does have mild anemia but not progressive. Continue to monitor Iron deficiency anemia-monitor daily-Down today, continue to monitor Constipation-resolved, now with diarrhea. Check on stool cultures Bladder outlet obstruction- Improving at the time of discharge Hypercholesterolemia-continue with home medications Admission status: Patient with progressive wound on gluteal area now forming an abscess. Debridement this morning. Medically necessary treatment will span 2 midnights. Maintain inpatient status. Overall patient worse today, still likely 2-3 more day hospital stay due to minimal improvement in oxygenation DS: Summary Hospital Course Hospital Course: Patient was seen and evaluated a couple times in the outpatient setting for sacral pain. She presented to the emergency room found to have a fairly large abscess almost the size of a baseball in 1 dimension. She was admitted with failed outpatient treatment. She was placed on IV antibiotics, blood cultures were obtained which showed no growth throughout the hospitalization. The abscess was drained at the bedside. Then packed. She had increasing pain the following day. White blood cell count was better but did CT scan which showed resolution of the abscess. Patient was given fluids on admission due to tachycardia but then had episode of fluid overload. She was diuresed with IV Lasix but with minimal improvement. Change patient to IV Bumex with better improvement. Following day creatinine was significantly elevated with acute renal failure as outlined above. This has been slowly improving since that time. She was reinstated with her diuretics yesterday IV. Kidney function continues to improve BNP continues to improve. White blood cell count is stable. At this point she is medically stable for discharge to rehab. Encour aged her to work hard at rehab and she is an excellent rehabilitation candidate as she is highly motivated for returning to home. Medications see list. I will follow patient at rehab Status at Discharge Overall status at discharge: patient is not back to baseline Time Spent with Patient Time attestation: Total time spent providing and/or coordinating discharge services: Time spent: greater than 30 minutes Exam Constitutional Vital Signs, click to edit/add: Last Vital Signs Temp 98.2 F 02/19/24 11:30 Pulse 108 H 02/19/24 14:15 Resp 18 02/19/24 14:15 BP 125/73 02/19/24 14:15 Pulse Ox 93 L 02/19/24 11:30 O2 Del Method Nasal Cannula 02/19/24 11:30 O2 Flow Rate 2 02/19/24 11:30 Documenting provider has reviewed patient's vital signs: yes Common normals: no apparent distress HENMT Common normals: normocephalic Chest Common normals: inspection of chest normal and palpation of chest normal Respiratory Common normals: normal respiratory effort and no use of accessory muscles Auscultation: rales (Minimal, much improved) bilateral, rhonchi (Bases) and wheezes (Clear today but just had breathing treatment) Cardio Common normals: no JVD and regular rate Rhythm: abnormal rhythm GI Common normals: Normal to inspection, nondistended, normoactive bowel sounds present Back & Pelvis Other: See surgery notes Extremity Other: Compression wrap on right leg, left leg with 1-2+ edema-restarting Lasix DS: Data Data Completed and Pending Labs on day of discharge: Labs from last 24 hours 02/19/24 04:35 WBC 14.3 H RBC 3.95 L Hgb 11.2 L Hct 36.7 MCV 92.9 MCH 28.4 MCHC 30.5 RDW 14.9 Plt Count 454 H MPV 9.1 L Neut % (Auto) 74.2 Lymph % (Auto) 15.7 L [place] % (Auto) 8.1 Eos % (Auto) 0.5 L Baso % (Auto) 0.2 Neut # (Auto) 10.6 H Lymph # (Auto) 2.2 [place] # (Auto) 1.2 H Eos # (Auto) 0.1 Baso # (Auto) 0.0 Abs Immat Gran (auto) 0.18 H Imm/Tot Granulo (auto) 1.3 H Sodium 142 Potassium 3.9 Chloride 102 Carbon Dioxide 36.7 H Anion Gap 7.2 BUN 74.0 H Creatinine 1.35 H Est GFR ( Amer) 46 L Est GFR (Non-Af Amer) 38 L BUN/Creatinine Ratio 54.8 Glucose 95 Calcium 10.0 NT-Pro-B Natriuret Pep 6616.0 H* Vancomycin Trough 5.7 Preliminary micro results at discharge 02/13/24 12:48 - Preliminary Blood NO GROWTH AT 36-48 HOURS. FINAL TO FOLLOW. 02/13/24 12:37 Blood Culture Result 1 - Preliminary Blood NO GROWTH AT 36-48 HOURS. FINAL TO FOLLOW. Discharge Plan Discharge Disposition: Xfer SNF Condition: Fair Discharge Medications: New hydralazine 50 mg Tablet 50 mg PO TID Qty: 90 0RF Eliquis 5 mg Tablet 2.5 mg PO BID Qty: 60 11RF doxycycline monohydrate 100 mg capsule 100 mg PO BID 7 Days Qty: 14 0RF cefdinir 300 mg capsule 600 mg PO DAILY Qty: 14 0RF Continued albuterol sulfate 2.5 mg /3 mL (0.083 %) solution for nebulization 2.5 mg inhalation Q4H PRN (Reason: shortness of breath or wheezing) anastrozole 1 mg tablet 1 mg PO DAILY aspirin [Adult Low Dose Aspirin] 81 mg tablet,delayed release (DR/EC) 81 mg PO DAILY furosemide 40 mg tablet 40 mg PO Q12H isosorbide mononitrate 60 mg tablet extended release 24 hr 60 mg PO DAILY levothyroxine 112 mcg tablet 112 mcg PO DAILY liothyronine 5 mcg tablet 10 mcg PO DAILY metoprolol succinate 200 mg tablet extended release 24 hr 200 mg PO DAILY simvastatin 20 mg tablet 20 mg PO BEDTIME sucralfate 1 gram tablet 1 g PO QID febuxostat 40 mg tablet 40 mg PO DAILY insulin glargine [Lantus U-100 Insulin] 100 unit/mL solution 10 unit subcut QAM insulin aspart U-100 [Novolog FlexPen U-100 Insulin] 100 unit/mL (3 mL) Insulin Pen 3 - 15 unit subcut ACHS amlodipine 10 mg tablet 10 mg PO .qd Discontinued Eliquis 5 mg tablet 5 mg PO BID hydralazine 100 mg tablet 100 mg PO TID Patient Comments: IF BP OVER 130 amoxicillin-pot clavulanate 875-125 mg tablet 1 tab PO Q12H Qty: 20 0RF Jardiance 10 mg tablet 10 mg PO .qd hydrocodone-acetaminophen 5-325 mg tablet 1 tab PO Q6H PRN (Reason: pain) spironolactone 50 mg tablet 50 mg PO .qd Print Language: Cymro Manager Action/Certified Registered Locksmith Instructions: Resume Bob BLOUNT at discharge. Phone number is [phone] Forms: Portal Instructions
--- NOTE | 2024-02-19 14:52 | SWNOTE1 ---
SW let family know again that pt only has 16 days of rehab under her medicare left and once those are up, she will either be private pay or discharged home. Pt and grand-daughter voiced understanding.
--- NOTE | 2024-02-19 15:24 | PC.NURSE ---
called report to katherine @ 1522 and stayed on hold until 1526. awaiting call back.
== END 2024-02-19 16:16 | DRG 602 ==
LOC: ER 16:56 → MS 17:35
PROVIDERS: Internal Medicine; Nurse Practitioner Acute Care; Admitting Provider Family Medicine; Emergency Provider Emergency Medicine; PCP Family Medicine; Visit Provider Family Medicine
DX: L02.31 Cutaneous abscess of buttock (principal); E43 Unspecified severe protein-calorie malnutrition; J96.01 Acute respiratory failure with hypoxia; I50.33 Acute on chronic diastolic (congestive) heart failure; N17.9 Acute kidney failure, unspecified; J44.1 Chronic obstructive pulmonary disease with (acute) exacerbation; I13.0 Hypertensive heart and chronic kidney disease with heart failure and stage 1 through stage 4 chronic kidney disease, or unspecified chronic kidney disease; N18.4 Chronic kidney disease, stage 4 (severe); Z68.42 Body mass index [BMI] 45.0-49.9, adult; E11.65 Type 2 diabetes mellitus with hyperglycemia; D69.6 Thrombocytopenia, unspecified; M10.9 Gout, unspecified; E03.9 Hypothyroidism, unspecified; D50.9 Iron deficiency anemia, unspecified; E78.00 Pure hypercholesterolemia, unspecified; I73.9 Peripheral vascular disease, unspecified; I48.0 Paroxysmal atrial fibrillation; I25.10 Atherosclerotic heart disease of native coronary artery without angina pectoris; R00.0 Tachycardia, unspecified; E66.01 Morbid (severe) obesity due to excess calories; E11.22 Type 2 diabetes mellitus with diabetic chronic kidney disease; D63.1 Anemia in chronic kidney disease; G25.1 Drug-induced tremor; T48.6X5A Adverse effect of antiasthmatics, initial encounter; K59.00 Constipation, unspecified; N32.0 Bladder-neck obstruction; R19.7 Diarrhea, unspecified; M06.9 Rheumatoid arthritis, unspecified; J98.6 Disorders of diaphragm; Z87.19 Personal history of other diseases of the digestive system; Z87.891 Personal history of nicotine dependence; Z79.4 Long term (current) use of insulin; Z79.899 Other long term (current) drug therapy; Z79.890 Hormone replacement therapy; Z79.82 Long term (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 aspirin; Z79.01 Long term (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; Z90.710 Acquired absence of both cervix and uterus; Z95.5 Presence of coronary angioplasty implant and graft; Z90.49 Acquired absence of other specified parts of digestive tract
CPT/HCPCS: 36415; 51702; 51798; 71045; 72192; 72193; 80048; 80053; 80202; 81001; 82948; 83605; 83880; 84484; 85025; 87040; 87070; 87493; 87507; 93005; 93308; 94640; 94667; 94668; 94761; 96365; 96366; 96367; 96368; 96375; 96376; 97110; 97162; 97165; 97530; 99285; G0328; J1885; J1940; J2270; J2405; J2543; J2919; J3370; Q9966

== ENCOUNTER 2024-05-01 11:44 | Outpatient (OUT) | payer MEDICARE, OTHER, SELFPAY ==
[2024-05-01 12:34] LABS: Anion Gap 15.2; Calcium 10.4 mg/dL (8.5-10.1); Chloride 95 mmol/L (98-107); Estimated GFR (African America 32 (>=60); Estimated GFR (Non-African Ame 26 (>=60); Glucose 179 mg/dL (74-106); Potassium 4.2 mmol/L (3.5-5.1); Sodium 133 mmol/L (136-145)
== END 2024-05-01 11:45 | disposition home or self-care (01) ==
LOC: LAB 11:45
PROVIDERS: PCP Family Medicine; Visit Provider Family Medicine
DX: N18.2 Chronic kidney disease, stage 2 (mild) (principal)
CPT/HCPCS: 36415; 80048

== ENCOUNTER 2024-05-09 07:31 | Outpatient (OUT) | payer MEDICARE, OTHER, SELFPAY ==
--- OUTSIDE RECORDS SUMMARY | 2024-05-09 07:37 | XMS_ITS | CCD ---
Author Organization [facility] Care Team Providers Care Reporting Manager Name Role Phone Mateus Perry MD Primary Care Provider Mateus Perry Primary Care Physician Mateus Perry MD Primary Care Provider [phone] Mateus Perry MD Primary Care Provider [phone] MD Mateus Perry Primary Care Provider [phone] MD Christiano Gonzales Attending Provider Christiano Gonzales Unavailable [phone] Millie Storm Unavailable SONALI MCKINNEY Admitting Unavailable SONALI MCKINNEY Attending Unavailable HOY ., DR IGNACIO Primary Care Unavailable SONALI MCKINNEY [...] MCKINNEY Admitting Unavailable SONALI MCKINNEY Attending Unavailable HOY ., DR IGNACIO Primary [...] Unavailable HOY ., DR IGNACIO Consulting Unavailable PATTERSON, DR JUDSON Plunkett Consulting Unavailable MISC, DR [...] HOY ., DR IGNACIO Primary Care Unavailable WEST, DR JUDSON Plunkett Consulting Unavailable NILL ., DR BARRIENTOS Consulting Unavailable POLICARO, KRISTIN Consulting Unavailable SHARP, CARLOS Consulting Unavailable LEANA HERNANDEZ Consulting Unavailable HOY [...] Unavailable HOY ., DR IGNACIO Consulting Unavailable PATTERSON, DR JUDSON Plunkett Consulting Unavailable HOY ., DR IGNACIO Primary Care Unavailable CARROLL, MIK Admitting Unavailable MIK HODGES Attending Unavailable CARROLL, MIK Consulting Unavailable HILL BAILON Consulting Unavailable NILL [...] Unavailable HOY, MATEUS M Primary Care Unavailable RAMIREZ, WINNIE M Attending Unavailable HOY, MATEUS M Primary Care Unavailable HOY, MATEUS M Primary Care Unavailable KARAMLOU, WALLACE Attending Unavailable HOY, MATEUS M Primary Care Unavailable HOY, MATEUS M Primary Care Unavailable NILL, Iliana R Attending Unavailable NILL, Iliana R Attending Unavailable NILL, Iliana R Attending Unavailable NILL, Iliana R Attending Unavailable NILL, Iliana R Attending Unavailable NILL, Iliana R Attending Unavailable Hoy, Mateus Referring Unavailable NILL, Iliana R Attending Unavailable LUMELANYAN VEMMA Admitting UnavailEMMA Harman Attending Unavailabl e MATEUS PERRY Primary Care Unavailable BARBARA BRUSHYSSA Referring Unavailable MATEUS PERRY Primary Care Unavailable MATEUS PERRY Primary Care Unavailable LATONIA BRUSH Referring Unavailable MD Mateus Perry Primary Care Provider [phone] FERNY Mathews Attending Provider [phone] MD Mateus Perry Primary Care Provider [phone] FERNY Mathews Attending Provider [phone] Mateus Perry Primary Care Unavailable Janell Mathews Admitting Unavailable Janell Mathews Attending Unavailable Mateus Perry Primary Care Unavailable Janell Mathews Admitting Unavailable Jaenll Mathews Attending Unavailable Allergies Allergy Classification Reported Allergen(s) Allergy Type Date of Onset Reaction(s) Facility (18 sources) Acetaminophen / oxyCODONE; 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: [OXYCODONE-ACETAM INOPHEN] Drug Allergy 3 Other (See Comments), Intolerance, GI Upset [facility] (20 sources) Ciprofloxacin; 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: [ciprofloxacin] Drug Allergy 8 Hives, Urticaria (disorder), Other: See Comments [facility] (20 sources) oxyCODONE; 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: [oxycodone] Drug Allergy 9 Rash, Itching (finding) [facility] (19 sources) cefdinir; 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: [cefdinir] Drug Allergy 3 Vomiting (disorder), Other: See Comments, Vomiting, Other (See Comments) [facility] (10 sources) traMADol; 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: [TRAMADOL] Drug Allergy 3 Mental Status Change, Other (See Comments) [facility] (1 source) Cefuroxime Drug Allergy 2 [facility] Work Phone: (5 sources) Acetaminophen; 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: [acetaminophen] Drug Allergy 9 [facility] (2 sources) Acetaminophen / oxyCODONE Drug Allergy 3 [facility] (1 source) Cefuroxime Drug Allergy 2 [facility] (2 sources) Ciprofloxacin Drug Allergy [facility] (1 source) cefdinir Drug Allergy 4 [facility] (1 source) Ciprofloxacin Drug Allergy 4 [facility] (1 source) oxyCODONE Drug Allergy 4 [facility] (1 source) traMADol Drug Allergy 4 [facility] Medications Current Medications Medication Drug Class(es) [...] (20 sources) Dihydropyridine Calcium Channel Mark Start: 1 take 1 tablet by mouth once daily amLODIPine (NORVASC) 5 MG tablet Take 5 mg by mouth daily 0 04/05/2021 Active Start: 04-25-2019 take 5 mg by mouth once daily Amlodipine Active 5 MG PO Daily April 25, 2019 12:00am Comment on above: Take by mouth once d aily. amoxicillin 875 mg / clavulanate 125 mg oral tablet (3 sources) Penicillin-class Antibacterial Start: 4 take 1 tablet by mouth once daily Amoxicillin-Pot Clavulanate Active TAB PO Daily February 13, 2024 12:00am anastrozole 1 mg oral tablet (12 sources) Aromatase Inhibitor Start: 3 End: 4 take 1 mg by mouth once daily Anastrozole Active 1 MG PO Daily November 29, 2022 12:00am Anastrozole Acti ve Comment on above: Take 1 tablet by zechariah once daily. apixaban 5 mg oral tablet (20 sources) Factor Xa Inhibitor Start: 04-25-2019 take 1 tablet by mouth twice daily Apixaban (Eliquis) 5 mg Tablet Active 5 MG PO Twice daily April 25, 2019 12:00am take 2 tablets by mouth twice da [...] Polymyxin-class Antibacterial Start: End: bacitracin-polymyxin b (POLYSPORIN) [id number] UNIT/GM ointment Apply topically 2 times daily. 15 g 1 06/28/2022 06/28/2022 Discontinued (REORDER) cholecalciferol 0.125 mg oral tablet (5 sources) Vitamin D Start: take 1 tablet [...] take 1 capsule by mouth twice daily [place] 3 1000 MG CAPS Take 1,000 mg by mouth 2 times daily 0 Active End: 05-12-2021 take 1 capsule by mouth once daily [place]-3 Fatty Acids (FISH OIL OMEGA-3) 1000 MG CAPS Take 1,000 mg by mouth daily 0 05/12/2021 Discontinued docusate sodium 50 mg / sennosides, fpc 8.6 mg oral tablet (2 sources) Start: 06-28-2022 End: 07-28-2022 take 8.6-50 mg by mouth once as needed senna-docusate (PERICOLACE) 8.6-50 MG per tablet Take 1 tablet by mouth 2 times daily as needed for Constipation 60 tablet 1 06/28/2022 06/28/2022 Discontinued (REORDER) empagliflozin 10 mg oral tablet (3 sources) Sodium-Glucose Cotransporter 2 Inhibitor Start: 12-11-2023 take 1 tablet by mouth once daily Empagliflozin (Jardiance) 10 mg tablet Active 10 MG PO Daily December 11, 2023 12:00am febuxostat 40 mg oral tablet (4 sources) Xanthine Oxidase Inhibitor Start: 12-11-2023 take 40 mg by mouth once daily Febuxostat Active 40 MG PO Daily December 11, 2023 12:00am Start: 06-09-2023 take 1 tablet by mouth once fe buxostat (ULORIC) 40 mg tab Take 1 tablet by mouth every afternoon. 0 06/09/2023 Active Comment on above: Take 1 tablet by zechariah th every afternoon. 2 ml fentaNYL 0.05 mg/ml injection (6 sources) Opioid Agonist Start: 06-28-2022 fentaNYL (SUBLIMAZE) injection 50 mcg Start: 06-28-2022 fentaNYL (SUBL IMAZE) injection 25 mcg Start: 12-13-2021 fentaNYL (SUBL IMAZE) injection 50 mcg Start: 12-13-2021 fentaNYL (SUBL IMAZE) injection 25 mcg ferrous sulfate 325 mg oral tablet (3 sources) Start: 12-11-2023 take 1 tablet by zechariah th twice daily Ferrous Sulfate (Feosol) 325 mg (65 mg iron) tablet Active 325 MG PO Twice daily December 11, 2023 12:00am Fish Oils (10 sources) Start: 09-02-2022 take 2 capsules by mouth once daily Fish Oil 1000 mg oral [...] Status: Ordered take 2 tablets by mo uth twice daily furosemide (LASIX) 20 mg tablet [...] mg oral tablet (20 sources) Sulfonylurea Start: take 4 mg by mouth twice daily Glimepiride Active 4 MG PO Twice daily April 25, 2019 12:00am take 1 tablet by zechariah th every twenty-four hours Glimepiride 4 MG 1 tablet with breakfast or the first main meal of the day Orally Once a day Active Comment on above: Take 4 mg by mouth t wice daily with meals. hydrALAZINE hydrochloride 100 mg oral tablet (20 sources) Arteriolar Vasodilator Start: 2018 take 100 mg by mouth three times daily Hydralazine Active 100 MG PO Three times daily April 25, 2019 12:00am Comment on above: Take 100 mg by mouth three times daily. hydroCHLOROthiazide 12.5 mg oral tablet (20 sources) Thiazide Diuretic Start: 2021 take 1 tablet by mouth twice daily [...] 12.5 mg by mout h once daily. 3 ml insulin glargine 100 unt/ml pen injector (3 sources) Insulin Analog Start: 12-11-19 inject 10 [IU] by subcutaneous injection once daily in the evening Insulin Glargine (Lantus Solostar U-100 Insulin) 100 unit/mL (3 mL) insulin pen Active 10 UNIT SUBCUT Every evening December 11, 2023 12:00am Insulin Lispro (Humalog U-100 Insulin) 100 unit/mL solution (3 sources) Start: 12-11-19 24 Insulin Lispro (Humalog U-100 Insulin) 100 unit/mL solution Active 1 sliding scale dose SUBCUT As Directed December 11, 2023 12:00am 24 hr isosorbide mononitrate 60 mg extended release oral tablet (20 sources) Nitrate Vasodilator Start: 09-02-20 take 1 tablet by mouth [...] Date: 09/02/22 Status: Ordered Start: 04-25-2019 take 112 ug by mouth once daily Levothyroxine Active 112 MCG PO Daily April 25, 2019 12:00am Start: 12-08-2016 levothyroxine (SYNTHROID) 112 mcg tablet [...] Start: 09-02-2022 take 2 tablets by mo [facility] once daily Cytomel 5 mcg Tab 10 mcg = 2 tab(s), Oral, Daily, Refills(s) 0 Start Date: 09/02/22 Status: Ordered take 1 tablet by zechariah every twenty-four hours Liothyronine Sodium 5 MCG 1 tablet on an empty stomach Orally Once a day Active Comment on above: Take 5 mcg by mouth once daily. metFORMIN hydrochloride 500 mg oral tablet (20 sources) Biguanide Start: 04-25-2019 take 500 mg by mouth twice daily Metformin Active 500 MG PO Twice daily April 25, 2019 12:00am Comment on above: Take 500 mg by mouth twice daily with meals. 24 hr metoprolol succinate 200 mg extended release oral tablet (20 sources) beta-Adrenergic Mark Start: 04-25-2019 take 200 mg by mouth once daily Metoprolol Succinate Active 200 MG PO Daily April 25, 2019 12:00am End: 06-20-2023 take 0.5 tablet by mouth [...] mg tablet,extended release 24 hr 200 mg. nystatin 100 unt/mg topical powder (7 sources) Polyene Antifungal Start: 06-28-2022 nystatin (MYCOSTATIN) 500070 UNIT/GM powder Apply 3 times daily. 60 g 10 06/28/2022 Active nystatin (MYCOST ATIN) 381652 UNIT/GM powder Apply topically 2 times daily as needed 0 Active Xfyts-0k-Baq-Epa-Fish Oil ([place]-3 Fish Oil) 300-1,000 mg Capsule (4 sources) Start: 04-25-2019 Kgjzz-2h-Niy-Epa-Fish Oil ([place]-3 Fish Oil) 300-1,000 mg Capsule Active 2 [...] flush 0.9 % injection 5-40 mL spironolactone 50 mg oral tablet (10 sources) Aldosterone Antagonist Start: 12-11-2023 take 1 tablet by mouth once daily Spironolactone (Aldactone) 50 mg tablet Active 50 MG PO Daily December 11, 2023 12:00am Start: 09-22-2022 take 0.5 tablet by m outh in the morning spironolactone (ALDACTONE) 25 MG [...] intl units oral Tab (4 sources) Start: take 1 tablet by mouth once [...] on above: Take 2 tablets by mo uth every 6 hours as needed for Pain. [...] infusion cetirizine hydrochloride 10 mg oral capsule (12 sources) Histamine-1 Receptor Antagonist Start: 04-25-2019 End: [...] twice daily. citalopram 20 mg oral tablet (12 sources) Serotonin Reuptake Inhibitor Start: 01-02-20 End: 11-30-19 take 20 mg by mouth once daily Citalopram Discontinued 20 MG PO Daily April 25, 2019 12:00am November 29, 2022 9:23am docusate sodium 100 mg oral capsule (8 sources) Start: 04-30-20 End: 06-20-20 take 2 capsules by mouth every twenty-four hours as needed docusate sodium (COLACE) 100 mg capsule Take 2 capsules by mouth at bedtime as needed (opioid-induced constipation). 60 capsule 0 04/30/2020 06/20/2023 Discontinued (Discontinued by Patient) Comment on above: Take 2 capsules by m outh at bedtime as needed (opioid-induced constipation). 30 actuat fluticasone furoate 0.1 mg/actuat / [...] 10-06-19 End: 06-20-20 DULERA 100-5 mcg/actuation inhaler levoFLOXacin 750 mg oral tablet (10 sources) [...] 0 Active meloxicam 15 mg oral tablet (9 sources) Nonsteroidal Anti-inflammatory Drug Start: 11-02-2022 End: 12-11-2023 take 15 mg by mouth once daily Meloxicam Discontinued 15 MG PO Daily November 29, 2022 12:00am December 11, 2023 9:24am Comment on above: Take 15 mg by mouth once daily. nitrofurantoin 5 mg/ml oral suspension (5 sources) Nitrofuran Antibacterial Start: 11-29-2022 End: 12-11-2023 take 50 mg by mouth four times daily at mealtime Nitrofurantoin Discontinued 50 MG PO Four times daily November 29, 2022 12:00am December 11, 2023 9:25am must administer with a meal/food take 50 mg by mouth four times d aily nitrofurantoin (FURADANTIN) 25 MG/5ML suspension Take 50 mg by mouth 4 times daily 0 Active Iapvt-6-OMN-EPA-Fish Oil 1,000 mg (120 mg-180 mg) cap (8 sources) take 1 capsule by mouth twice daily Meqhw-7-VQQ-EPA-Fish Oil 1,000 mg (120 mg-180 mg) cap Take 2 g by mouth twice daily. 0 Active Comment on above: Take 2 g by mouth tw ice daily. potassium chloride 20 meq extended release oral tablet (9 sources) Start: 022 take 1 tablet by mouth three times [...] pulmonary disease, unspecified] Onset: 11-03-2022 09-02-2022 Chronic Chronic ulcer of skin (7 sources) Ulcer of lower extremity; 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: [Non-pressure chronic ulcer of unspecified part of left lower leg with unspecified severity] Onset: 04-24-2024 12-11-2023 Chronic Conditions associated with dizziness or vertigo [...] and stenosis of bilateral carotid arteries] Chronic Open wounds of extremities (6 sources) Open wound of left thigh; 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: [Unspecified open wound, left thigh, initial encounter] 02-13-2024 Episodic Open wounds of extremities (6 sources) Injury of right leg; 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: [Unspecified open wound, right lower leg, initial encounter] 02-13-2024 Episodic Osteoporosis (5 sources) Age-related osteoporosis without current pathological fracture; 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: [AGE-REL OSTEOPOR W/O CURR PATH FX] Onset: 07-23-2022 Chronic Other aftercare (5 sources) Long-term current use of anticoagulant; 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: [predatory animal exterminator (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] Onset: 09-09-2022 Episodic Other aftercare (1 source) predatory animal exterminator (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; 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: [STADIUM MANAGER CURRNT USE ANTICOAGULANTS] Onset: 11-03-2022 Episodic Other aftercare (1 source) USP (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 oral hypoglycemic drugs; 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: [STADIUM MANAGER USE ORAL HYPOGLYCEMIC DX] Onset: 11-03-2022 Episodic Other aftercare (1 source) Other predatory animal exterminator (current) drug therapy; 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: [OTH PENITENTIARY CURRENT DRUG THERAPY] Onset: 11-03-2022 Episodic Other bone disease and musculoskeletal deformities (4 sources) Osteopenia 09-02-2022 Episodic Other connective tissue disease (3 sources) Other specified soft tissue disorders Episodic Other connective tissue disease (1 source) Pain in right lower leg Episodic Other connective tissue disease (2 sources) Repeated falls; 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: [Repeated falls] Onset: 03-20-2023 Episodic Other female genital disorders (3 sources) Dysplasia of vagina; 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, unspecified] Episodic Other nervous system disorders (2 sources) Other abnormalities of gait and mobility; 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: [Other abnormalities of gait and mobility] Onset: 03-20-2023 Episodic Other nutritional; endocrine; and metabolic disorders [...] Onset: 01-16-2017 09-02-2022 Chronic Residual codes; unclassified (6 sources) Dependence on other enabling machines and devices; 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: [Uses walker] 12-11-2023 Chronic Residual codes; unclassified (4 sources) Edema 09-02-2022 Episodic Residual codes; unclassified (6 sources) Localized edema; 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: [Edema] Episodic Residual codes; unclassified (4 sources) Edema, unspecified; 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: [EDEMA UNSPECIFIED] Onset: 11-02-2022 Episodic Residual codes; unclassified (1 source) Family history of malignant neoplasm of breast; 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: [FAMILY HX MALIG NEOPLASM OF BREAST] Onset: 11-03-2022 Episodic Residual codes; unclassified (3 sources) Bilateral lower leg edema; 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: [Localized edema] 12-11-2023 Episodic Residual codes; unclassified (3 sources) Altered mental status; 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: [Altered mental status, unspecified] 02-13-2024 Episodic Residual codes; unclassified (3 sources) Altered mental status, unspecified; 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: [Altered mental status] 03-26-2024 Episodic Screening and history of mental health [...] (2 sources) BX; 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: [BX] Onset: 11-24-2022 Unclassified (6 sources) Inflammatory disorder; 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: [Inflammation] 12-11-2023 Urinary tract infections (4 sources) Urinary tract infection, site not specified; 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: [UTI SITE NOT SPECIFIED] Onset: 01-19-2023 Episodic Varicose veins of lower extremity (6 sources) Varicose veins of lower limb co-occurrent with edema; 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: [Varicose veins of bilateral lower extremities with other complications] 12-11-2023 Episodic Viral infection (4 sources) COVID-19; 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: [...] Onset: 08-13-2022 Episodic Other aftercare (1 source) predatory animal exterminator (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 aspirin; 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: [STADIUM MANAGER CURRENT USE OF ASPIRIN] Onset: 08-25-2022 Episodic [...] Test Name Value Interpretation Reference Range Facility US ankle/arm indiceson 04-09 US ankle/arm indices [place] [address] Ultrasound Report Signed Patient: Harman Mcleod MR#: [id number] : 1940 Acct:[id number] Age/Sex: 83 / F ADM Date: 04/09/24 Loc: Room: Type: [facility] Attending Dr: Janell Mathews APRN Ordering Provider: Janell Mathews APRN Date of Service: 04/09/24 US/US ankle/arm indices: I70.238,I70.248 Copies to: Janell Mathews APRN LOWER EXTREMITY SEGMENTAL ARTERIAL DOPSCAN (PVR) INDICATION: Left leg wound. PROCEDURE: Left arm blood pressure is 121 . Pressures of the right leg are 139 at the ankle using the posterior tibial artery and 138 at the ankle using the dorsalis pedis artery with ankle- brachial index of 1.14 1.15 . Pressures of the left leg are 95 at the ankle using the posterior tibial artery and 66 at the ankle using the dorsalis pedis artery with ankle-brachial index of 0.55 0.79 . Wave forms by plethysmography are biphasic, bilaterally. 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 Impression dictated by: Christiano Gonzales MD04/09/2024 2:02 PM Dictation Location: RAD-DOC-04 Tech: Kaleigh Ortega Transcribed By: FRANCIA 04/09/241401 Dictated By: Christiano Gonzales MD 04/09/24 140 Signed By: 04/09/24 140 Normal [facility] US venous duplex LE BIon US venous duplex LE BI [facility] [place] [address] [place] [address] Ultrasound Report Signed Patient: Harman Mcleod MR#: [id number] : 1940 Acct:[id number] Age/Sex: 83 / F ADM Date: 04/09/24 Loc: Room: Type: [facility] Attending Dr: Janell Mathews APRN Ordering Provider: Janell Mathews APRN Date of Service: 04/09/24 US/US venous duplex LE BI: I70.238.[id number] Copies to: Janell Mathews APRN BILATERAL LOWER EXTREMITY VENOUS DUPLEX INDICATION: Left leg wound. PROCEDURE: Color-flow duplex scanning is used to interrogate the deep venous system of the right and left lower extremities. The common femoral vein, femoral vein and popliteal vein show good compressibility with normal proximal and distal augmentation. The calf veins are compressible. US/US venous duplex LE BI IMPRESSION: NO EVIDENCE FOR DEEP VEIN THROMBOSIS OR PROXIMAL SUPERFICIAL THROMBOPHLEBITIS IN THE RIGHT OR LEFT LOWER EXTREMITY. Mild reflux was identified throughout the superficial and deep venous system the left lower extremity. Large varicosities were identified. Impression dictated by: Christiano Gonzales MD04/09/2024 2:01 PM Dictation Location: RAD-DOC-04 Tech: Francesca Estrada Transcribed By: FRANCIA 04/09/24 140 Dictated By: Christiano Gonzales MD 04/09/24 1359 Signed By: 04/09/24 140 Normal [facility] Consultation Noteon 06-21-20 23 Consultation Note [id number] [id number] Normal [facility] CBC W Auto Differential pane l (Bld)on 06-20-2023 Basophils (Bld) [#/Vol] 0.03 10*3/uL Normal <0.11 [facility] Comment on above: Order Comment: Speci men Type: BLOOD SPECIMENOrdering Facility: [facility] Address: [address] [place] [address] Performed By: #### 5 7021-8 ####[facility] LABCLIA [id number] [place] [address] Basophils/100 WBC (Bld) 0.3 % Normal [facility] Comment on above: Order Comment: Speci men Type: BLOOD SPECIMENOrdering Facility: [facility] Address: [address] [place] [address] Performed By: #### 5 7021-8 ####[facility] LABCLIA [id number] [place] [address] Differential cell count method Nom (Bld) Auto Normal [facility] Comment on above: Order Comment: Speci men Type: BLOOD SPECIMENOrdering Facility: [facility] Address: [address] [place] [address] Performed By: #### 5 7021-8 ####[facility] LABCLIA [id number] [place] [address] Eosinophils (Bld) [#/Vol] 10*3/uL Normal <0.46 [facility] Comment on above: Order Comment: Speci men Type: BLOOD SPECIMENOrdering Facility: [facility] Address: [address] [place] [address] Performed By: #### 5 7021-8 ####[facility] LABCLIA [id number] [place] [address] Eosinophils/100 WBC (Bld) 0.2 % Normal [facility] Comment on above: Order Comment: Speci men Type: BLOOD SPECIMENOrdering Facility: [facility] Address: [address] [place] [address] Performed By: #### 5 7021-8 ####[facility] LABCLIA [id number] [place] [address] Erythrocyte distribution width (RBC) [Ratio] 14.4 % Normal 11.5-15.0 [facility] Comment on above: Order Comment: Speci men Type: BLOOD SPECIMENOrdering Facility: [facility] Address: [address] [place] [address] Performed By: #### 5 7021-8 ####[facility] LABCLIA [id number] [place] [address] Hematocrit (Bld) [Volume fraction] 34.9 % Low 36.0-46.0 [facility] Comment on above: Order Comment: Speci men Type: BLOOD SPECIMENOrdering Facility: [facility] Address: [address] [place] [address] Performed By: #### 5 7021-8 ####[facility] LABCLIA [id number] [place] [address] Hemoglobin (Bld) [Mass/Vol] 10.9 g/dL Low 11.5-15.5 [facility] Comment on above: Order Comment: Speci men Type: BLOOD SPECIMENOrdering Facility: [facility] Address: [address] [place] [address] Performed By: #### 5 7021-8 ####[facility] LABCLIA [id number] [place] [address] Immature granulocytes (Bld) [#/Vol] 0.11 10*3/uL High <0.10 [facility] Comment on above: Order Comment: Speci men Type: BLOOD SPECIMENOrdering Facility: [facility] Address: [address] [place] [address] Performed By: #### 5 7021-8 ####[facility] LABCLIA [id number] [place] [address] Immature granulocytes/100 WBC (Bld) 1.1 % Normal [facility] Comment on above: Order Comment: Speci men Type: BLOOD SPECIMENOrdering Facility: [facility] Address: [address] [place] [address] Performed By: #### 5 7021-8 ####[facility] LABCLIA [id number] [place] [address] Lymphocytes (Bld) [#/Vol] 1.97 10*3/uL Normal 1.00-4.00 [facility] Comment on above: Order Comment: Speci men Type: BLOOD SPECIMENOrdering Facility: [facility] Address: [address] [place] [address] Performed By: #### 5 7021-8 ####[facility] LABCLIA [id number] [place] [address] Lymphocytes/100 WBC (Bld) 19.3 % Normal [facility] Comment on above: Order Comment: Speci men Type: BLOOD SPECIMENOrdering Facility: [facility] [facility] Address: [address] [place] [address] Performed By: #### 5 7021-8 ####[facility] LABCLIA [id number] [place] [address] MCH (RBC) [Entitic mass] 29.9 pg Normal 26.0-34.0 [facility] Comment on above: Order Comment: Speci men Type: BLOOD SPECIMENOrdering Facility: [facility] Address: [address] [place] [address] Performed By: #### 5 7021-8 ####[facility] LABCLIA [id number] [place] [address] MCHC (RBC) [Mass/Vol] 31.2 g/dL Normal 30.5-36.0 [facility] Comment on above: Order Comment: Speci men Type: BLOOD SPECIMENOrdering Facility: [facility] Address: [address] [place] [address] Performed By: #### 5 7021-8 ####[facility] LABCLIA [id number] [place] [address] MCV (RBC) [Entitic vol] 95.6 fL Normal 80.0-100.0 [facility] Comment on above: Order Comment: Speci men Type: BLOOD SPECIMENOrdering Facility: [facility] Address: [address] [place] [address] Performed By: #### 5 7021-8 ####[facility] LABCLIA [id number] [place] [address] Monocytes (Bld) [#/Vol] 0.49 10*3/uL Normal <0.87 [facility] Comment on above: Order Comment: Speci men Type: BLOOD SPECIMENOrdering Facility: [facility] Address: [address] [place] [address] Performed By: #### 5 7021-8 ####[facility] LABCLIA [id number] [place] [address] Monocytes/100 WBC (Bld) 4.8 % Normal [facility] Comment on above: Order Comment: Speci men Type: BLOOD SPECIMENOrdering Facility: [facility] Address: [address] [place] [address] Performed By: #### 5 7021-8 ####[facility] LABCLIA [id number] [place] [address] Neutrophils (Bld) [#/Vol] 7.59 10*3/uL High 1.45-7.50 [facility] Comment on above: Order Comment: Speci men Type: BLOOD SPECIMENOrdering Facility: [facility] Address: [address] [place] [address] Performed By: #### 5 7021-8 ####[facility] LABIA [id number] [place] [address] Neutrophils/100 WBC (Bld) 74.3 % Normal [facility] Comment on above: Order Comment: Speci men Type: BLOOD SPECIMENOrdering Facility: [facility] Address: [address] [place] [address] Performed By: #### 5 7021-8 ####[facility] LABCLIA [id number] [place] [address] Nucleated RBC (Bld) [#/Vol] 10*3/uL Normal <0.01 [facility] Comment on above: Order Comment: Speci men Type: BLOOD SPECIMENOrdering Facility: [facility] Address: [address] [place] [address] Performed By: #### 5 7021-8 ####[facility] LABCLIA [id number] [place] [address] Nucleated RBC/100 WBC (Bld) [Ratio] 0.0 /100 WBC Normal [facility] Comment on above: Order Comment: Speci men Type: BLOOD SPECIMENOrdering Facility: [facility] Address: [address] [place] [address] Performed By: #### 5 7021-8 ####[facility] LABCLIA [id number] [place] [address] Platelet mean volume (Bld) [Entitic vol] 9.3 fL Normal 9.0-12.7 [facility] Comment on above: Order Comment: Speci men Type: BLOOD SPECIMENOrdering Facility: [facility] Address: [address] [place] [address] Performed By: #### 5 7021-8 ####[facility] LABCLIA [id number] [place] [address] Platelets (Bld) [#/Vol] 275 10*3/uL Normal 150-400 [facility] Comment on above: Order Comment: Speci men Type: BLOOD SPECIMENOrdering Facility: [facility] Address: [address] [place] [address] Performed By: #### 5 7021-8 ####[facility] LABCLIA [id number] [place] [address] RBC (Bld) [#/Vol] 3.65 10*6/uL Low 3.90-5.20 [facility] Comment on above: Order Comment: Speci men Type: BLOOD SPECIMENOrdering Facility: [facility] Address: [place] [address] Performed By: #### 5 7021-8 ####[facility] LABIA [id number] [place] [address] WBC (Bld) [#/Vol] 10.21 10*3/uL Normal 3.70-11.00 [facility] Comment on above: Order Comment: Speci men Type: BLOOD SPECIMENOrdering Facility: [facility] Address: [place] [address] Performed By: #### 5 7021-8 ####[facility] LABCLIA [id number] [place] [address] CNOVSPon 06-20-2023 CNOVSP Visit (SP) Office (HEMASA) HARMAN MCLEOD ([id number]) 1940 F Date Time Provider Department 06/20/23 2:30 PM WINNIE GUZMÁN HEMASA During your visit today, we recorded the following information about you: Temperature Pulse Respiration Blood pressure 97.4 degrees 72/minute 16/minute 138/55 Weight Height 84.6 kg 1.549 m Winnie Guzmán PA-C 06/20/2023 3:58 PM Signed PATIENT NAME: Harman Berna Mcleod [facility] NO.: [id number] ATTENDING PHYSICIAN: Wallace Stone MD DATE OF [...] Negative LVI, 2 SNL negative, ER and NV >95% positive, Her2 IHC 1+ Treatment History: [...] 06/20/2023 1.77 (more content not included)... Normal [facility] Comprehensive metabolic 2000 panelon 06-20-2023 Albumin [Mass/Vol] 4.0 g/dL Normal 3.9-4.9 [facility] Comment on above: Order Comment: Speci men Type: BLOOD SPECIMENOrdering Facility: [facility] Address: [address] [place] [address] Performed By: #### 2 4323-8 ####[facility] LABCLIA [id number] [place] [address] ALP [Catalytic activity/Vol] 72 U/L Normal 34-123 [facility] Comment on above: Order Comment: Speci men Type: BLOOD SPECIMENOrdering Facility: [facility] Address: [address] [place] [address] Performed By: #### 2 4323-8 ####[facility] LABCLIA [id number] [place] [address] ALT [Catalytic activity/Vol] 17 U/L Normal 7-38 [facility] Comment on above: Order Comment: Speci men Type: BLOOD SPECIMENOrdering Facility: [facility] Address: [address] [place] [address] Performed By: #### 2 4323-8 ####[facility] LABCLIA [id number] [place] [address] Anion gap [Moles/Vol] 9 mmol/L Normal 9-18 [facility] Comment on above: Order Comment: Speci men Type: BLOOD SPECIMENOrdering Facility: [facility] Address: [address] [place] [address] Performed By: #### 2 4323-8 ####[facility] LABCLIA [id number] [place] [address] AST [Catalytic activity/Vol] 11 U/L Low 13-35 [facility] Comment on above: Order Comment: Speci men Type: BLOOD SPECIMENOrdering Facility: [facility] Address: [address] [place] [address] Performed By: #### 2 4323-8 ####[facility] LABCLIA [id number] [place] [address] Bilirubin [Mass/Vol] 0.2 mg/dL Normal 0.2-1.3 [facility] Comment on above: Order Comment: Speci men Type: BLOOD SPECIMENOrdering Facility: [facility] Address: [address] [place] [address] Performed By: #### 2 4323-8 ####[facility] LABCLIA [id number] [place] [address] Calcium [Mass/Vol] 10.1 mg/dL Normal 8.5-10.2 [facility] Comment on above: Order Comment: Speci men Type: BLOOD SPECIMENOrdering Facility: [facility] Address: [address] [place] [address] Performed By: #### 2 4323-8 ####[facility] LABCLIA [id number] [place] [address] Chloride [Moles/Vol] 103 mmol/L Normal 97-105 [facility] Comment on above: Order Comment: Speci men Type: BLOOD SPECIMENOrdering Facility: [facility] Address: [address] [place] [address] Performed By: #### 2 4323-8 ####[facility] LABCLIA [id number] [place] [address] CO2 [Moles/Vol] 30 mmol/L Normal 22-30 [facility] Comment on above: Order Comment: Speci men Type: BLOOD SPECIMENOrdering Facility: [facility] Address: [address] [place] [address] Performed By: #### 2 4323-8 ####[facility] LABCLIA [id number] [place] [address] Creatinine [Mass/Vol] 1.77 mg/dL High 0.58-0.96 [facility] Comment on above: Order Comment: Speci men Type: BLOOD SPECIMENOrdering Facility: [facility] Address: [address] [place] [address] Performed By: #### 2 4323-8 ####[facility] LABCLIA [id number] [place] [address] Creatinine and Glomerular filtration rate.predicted panel (S/P/Bld) 29 mL/min/1.73m??? Low >=60 [facility] Comment on above: Order Comment: Dimple de santiago Type: BLOOD SPECIMENOrdering Facility: [facility] Address: [address] [id number] Result Comment: Ramila mated Glomerular Filtration Rate [...] actual GFR. Performed By: #### 2 4323-8 ####[facility] LABCLIA [id number] [place] [address] Glucose [Mass/Vol] 273 mg/dL High 74-99 [facility] Comment on above: Order Comment: Dimple de santiago Type: BLOOD SPECIMENOrdering Facility: [facility] Address: [address] [place] [address] Result Comment: The [place] [employer] (ADA) provides guidance for cutoff [...] Standards of Medical Care in Diabetes 2016, [place] [employer]. Diabetes Care. 2016.39(Suppl 1). Performed By: #### 2 4323-8 ####[facility] LABCLIA [id number] [place] [address] Potassium [Moles/Vol] 5.1 mmol/L Normal 3.7-5.1 [facility] Comment on above: Order Comment: Dimple de santiago Type: BLOOD SPECIMENOrdering Facility: [facility] Address: [address] [phone] Performed By: #### 2 4323-8 ####[facility] LABCLIA [id number] [place] [address] Protein [Mass/Vol] 6.4 g/dL Normal 6.3-8.0 [facility] Comment on above: Order Comment: Speci men Type: BLOOD SPECIMENOrdering Facility: [facility] Address: [address] [place] [address] Performed By: #### 2 4323-8 ####[facility] LABCLIA [id number] [place] [address] Sodium [Moles/Vol] 142 mmol/L Normal 136-144 [facility] Comment on above: Order Comment: Speci men Type: BLOOD SPECIMENOrdering Facility: [facility] Address: [address] [place] [address] Performed By: #### 2 4323-8 ####[facility] LABCLIA [id number] [place] [address] Urea nitrogen [Mass/Vol] 40 mg/dL High 7-21 [facility] Comment on above: Order Comment: Speci men Type: BLOOD SPECIMENOrdering Facility: [facility] Address: [address] [place] [address] Performed By: #### 2 4323-8 ####[facility] LABCLIA [id number] [place] [address] Vaginitis DNA Probeon 2022 Manjula Negative Normal NEG [facility] Comment on above: Result Comment: for Manjula sp. Method of testing is a DNA probe intended for detection and identification of Manjula species, Gardnerella vaginalis, and Trichomonas vaginalis nucleic acid in vaginal fluid specimens from patients with symptoms of vaginitis/vaginosis. Performed By: #### V AGP #### [address] [address] Newspaper Illustrator: Fidel Hylton MD Gardnerella Negative Normal NEG [facility] Comment on above: Result Comment: for Gardnerella vaginalis Performed By: #### V AGP #### [address] [place], [place] [phone] Newspaper Illustrator: Fidel Hylton MD Trichomonas Negative Normal NEG [facility] Comment on above: Result Comment: for Trichomonas Vaginalis Performed By: #### V AGP #### [facility] [address] [place], [place] [phone] Newspaper Illustrator: Fidel Hylton MD Source .VAGINAL SWAB Normal [facility] Comment on above: Performed By: #### V AGP #### [facility] [address] [place] [phone] Newspaper Illustrator: Fidel Hylton MD Office Visiton 03-20-2023 Follow-up visit [id number] Harman Mcleod 1940 F Date Provider Department Center 03/20/2023 JOSE MARIA GARCIA [facility] Family History Problem Relation Age of Onset Stroke Mother Coronary artery disease Father Heart attack Father Family Status - Relation Status Age at Mother Father Level of Service:02382 [place] OFFICE/OUTPATIENT ESTABLISHED MOD MDM 30-39 MIN Reason for Visit and Comments: Coronary Artery Disease [187] Atrial Fibrillation [80] Congestive Heart Failure [127] Hypertension [851131] Normal [facility] OPERATIVE REPORTon OPERATIVE REPORT [address] [address] OPERATIVE REPORT PATIENT NAME: HARMAN MCLEOD : 1940 MED REC NO: [id number] ROOM: ACCOUNT NO: [id number] ADMIT DATE: 03/06/2023 PROVIDER: Emma Garza MD DATE OF PROCEDURE: 03/06/2023 PREOPERATIVE DIAGNOSIS: Recurrent vaginal dysplasia. POSTOPERATIVE DIAGNOSIS: Recurrent vaginal dysplasia. OPERATION PERFORMED: Examination under anesthesia, carbon dioxide laser vaporization of vaginal dysplasia. COMPLICATIONS: None. BLOOD LOSS: Minimal. SURGEON: Emma Garza MD AMPOULE INSPECTOR: Mauri (resident). DISPOSITION: The patient to recovery room stable. SPECIMENS: No specimen sent to Pathology. OPERATIVE FINDINGS: The patient had a small 1-2 cm area of dztknkow-ik-gflskr dysplasia along the anterior vagina from 12 [...] for the entire procedure. EMMA GARZA MD [email or web address] Doc#: [id number] CC: Normal [facility] Consultation Noteon 02-20-20 23 Consultation Note [id number]#[id number] 0CD:127 Normal [facility] CBC W Auto Differential pane l (Bld)on 02-14-2023 Basophils (Bld) [#/Vol] 0.04 10*3/uL Normal <0.11 [facility] Comment on above: Order Comment: Speci men Type: BLOOD SPECIMENOrdering Facility: [facility] Address: [address] [phone] Performed By: #### 5 7021-8 ####[facility] LABCLIA [id number] [place] [address] Basophils/100 WBC (Bld) 0.4 % Normal [facility] Comment on above: Order Comment: Speci men Type: BLOOD SPECIMENOrdering Facility: [facility] Address: [address] [phone] Performed By: #### 5 7021-8 ####[facility] LABCLIA [id number] [place] [address] Differential cell count method Nom (Bld) Auto Normal [facility] Comment on above: Order Comment: Speci men Type: BLOOD SPECIMENOrdering Facility: [facility] Address: [address] [place] [address] Performed By: #### 5 7021-8 ####[facility] LABCLIA [id number] [place] [address] Eosinophils (Bld) [#/Vol] 0.20 10*3/uL Normal <0.46 [facility] Comment on above: Order Comment: Speci men Type: BLOOD SPECIMENOrdering Facility: [facility] Address: [address] [place] [address] Performed By: #### 5 7021-8 ####[facility] LABCLIA [id number] [place] [address] Eosinophils/100 WBC (Bld) 1.9 % Normal [facility] Comment on above: Order Comment: Speci men Type: BLOOD SPECIMENOrdering Facility: [facility] Address: [address] [place] [address] Performed By: #### 5 7021-8 ####[facility] LABCLIA [id number] [place] [address] Erythrocyte distribution width (RBC) [Ratio] 14.1 % Normal 11.5-15.0 [facility] Comment on above: Order Comment: Speci men Type: BLOOD SPECIMENOrdering Facility: [facility] Address: [address] [place] [address] Performed By: #### 5 7021-8 ####[facility] LABIA [id number] [place] [address] Hematocrit (Bld) [Volume fraction] 38.4 % Normal 36.0-46.0 [facility] Comment on above: Order Comment: Speci men Type: BLOOD SPECIMENOrdering Facility: [facility] Address: [address] [address] Performed By: #### 5 7021-8 ####[facility] LABCLIA [id number] [place] [address] Hemoglobin (Bld) [Mass/Vol] 12.2 g/dL Normal 11.5-15.5 [facility] Comment on above: Order Comment: Speci men Type: BLOOD SPECIMENOrdering Facility: [facility] Address: [address] [place] [address] Performed By: #### 5 7021-8 ####[facility] LABIA [id number] [place] [address] Immature granulocytes (Bld) [#/Vol] 0.06 10*3/uL Normal <0.10 [facility] Comment on above: Order Comment: Speci men Type: BLOOD SPECIMENOrdering Facility: [facility] Address: [address] [place] [address] Performed By: #### 5 7021-8 ####[facility] LABIA [id number] [place] [address] Immature granulocytes/100 WBC (Bld) 0.6 % Normal [facility] Comment on above: Order Comment: Speci men Type: BLOOD SPECIMENOrdering Facility: [facility] Address: [address] [place] [address] Performed By: #### 5 7021-8 ####[facility] LABIA [id number] [place] [address] Lymphocytes (Bld) [#/Vol] 2.56 10*3/uL Normal 1.00-4.00 [facility] Comment on above: Order Comment: Speci men Type: BLOOD SPECIMENOrdering Facility: [facility] Address: [address] [place] [address] Performed By: #### 5 7021-8 ####[facility] LABCLIA [id number] [place] [address] Lymphocytes/100 WBC (Bld) 24.6 % Normal [facility] Comment on above: Order Comment: Speci men Type: BLOOD SPECIMENOrdering Facility: [facility] Address: [address] [place] [address] Performed By: #### 5 7021-8 ####[facility] LABCLIA [id number] [place] [address] MCH (RBC) [Entitic mass] 30.0 pg Normal 26.0-34.0 [facility] Comment on above: Order Comment: Speci men Type: BLOOD SPECIMENOrdering Facility: [facility] Address: [address] [place] [address] Performed By: #### 5 7021-8 ####[facility] LABCLIA [id number] [place] [address] MCHC (RBC) [Mass/Vol] 31.8 g/dL Normal 30.5-36.0 [facility] Comment on above: Order Comment: Speci men Type: BLOOD SPECIMENOrdering Facility: [facility] Address: [address] [place] [address] Performed By: #### 5 7021-8 ####[facility] LABCLIA [id number] [place] [address] MCV (RBC) [Entitic vol] 94.3 fL Normal 80.0-100.0 [facility] Comment on above: Order Comment: Speci men Type: BLOOD SPECIMENOrdering Facility: [facility] Address: [address] [place] [address] Performed By: #### 5 7021-8 ####[facility] LABCLIA [id number] [place] [address] Monocytes (Bld) [#/Vol] 0.86 10*3/uL Normal <0.87 [facility] Comment on above: Order Comment: Speci men Type: BLOOD SPECIMENOrdering Facility: [facility] Address: [address] [address] Performed By: #### 5 7021-8 ####[facility] LABCLIA [id number] [place] [address] Monocytes/100 WBC (Bld) 8.3 % Normal [facility] Comment on above: Order Comment: Speci men Type: BLOOD SPECIMENOrdering Facility: [facility] Address: [address] [place] [address] Performed By: #### 5 7021-8 ####[facility] LABCLIA [id number] [place] [address] Neutrophils (Bld) [#/Vol] 6.69 10*3/uL Normal 1.45-7.50 [facility] Comment on above: Order Comment: Speci men Type: BLOOD SPECIMENOrdering Facility: [facility] Address: [address] [place] [address] Performed By: #### 5 7021-8 ####[facility] LABCLIA [id number] [place] [address] Neutrophils/100 WBC (Bld) 64.2 % Normal [facility] Comment on above: Order Comment: Speci men Type: BLOOD SPECIMENOrdering Facility: [facility] Address: [address] [place] [address] Performed By: #### 5 7021-8 ####[facility] LABCLIA [id number] [place] [address] Nucleated RBC (Bld) [#/Vol] 10*3/uL Normal <0.01 [facility] Comment on above: Order Comment: Speci men Type: BLOOD SPECIMENOrdering Facility: [facility] Address: [address] [place] [address] Performed By: #### 5 7021-8 ####[facility] LABCLIA [id number] [place] [address] Nucleated RBC/100 WBC (Bld) [Ratio] 0.0 /100 WBC Normal [facility] Comment on above: Order Comment: Speci men Type: BLOOD SPECIMENOrdering Facility: [facility] Address: [address] [place] [address] Performed By: #### 5 7021-8 ####[facility] LABCLIA [id number] [place] [address] Platelet mean volume (Bld) [Entitic vol] 9.6 fL Normal 9.0-12.7 [facility] Comment on above: Order Comment: Speci men Type: BLOOD SPECIMENOrdering Facility: [facility] Address: [address] [address] Performed By: #### 5 7021-8 ####[facility] LABCLIA [id number] [place] [address] Platelets (Bld) [#/Vol] 271 10*3/uL Normal 150-400 [facility] Comment on above: Order Comment: Speci men Type: BLOOD SPECIMENOrdering Facility: [facility] Address: [address] [place] [address] Performed By: #### 5 7021-8 ####[facility] LABCLIA [id number] [place] [address] RBC (Bld) [#/Vol] 4.07 10*6/uL Normal 3.90-5.20 [facility] Comment on above: Order Comment: Speci men Type: BLOOD SPECIMENOrdering Facility: [facility] Address: [address] Performed By: #### 5 7021-8 ####[facility] LABCLIA [id number] [place] [address] WBC (Bld) [#/Vol] 10.41 10*3/uL Normal 3.70-11.00 [facility] Comment on above: Order Comment: Speci men Type: BLOOD SPECIMENOrdering Facility: [facility] Address: [address] [place] [address] Performed By: #### 5 7021-8 ####[facility] [id number] [place] [address] CNOVSPon 02-14-2023 CNOVSP Visit (SP) Office (HEMASA) HARMAN MCLEOD ([id number]) 1940 F Date Time Provider Department 02/14/23 10:30 AM WALLACE STONE During your visit today, we recorded the following information about you: Temperature Pulse Respiration Blood pressure 97.4 degrees 102/minute 16/minute 151/90 Weight Height 84.5 kg 1.549 m Wallace Stone MD 02/14/2023 10:49 AM Signed PATIENT NAME: Harman Mcleod CLINIC NO.: [id number] ATTENDING PHYSICIAN: Wallace Stone MD DATE OF [...] Negative LVI, 2 SNL negative, ER and NV >95% positive, Her2 IHC 1+ Treatment History: [...] : Deferre (more content not included)... Normal [facility] CNPNon 02-14-2023 [facility] ([id number]) 1940 F Date Time Provider Department 02/14/23 [facility] During your visit today, we recorded the following information about you: Angelica Bhakta Sec 02/14/2023 11:00 AM Signed Please ref to [facility] for Consult dx eczema They will call the patient to schedule after review of records. Janeth, Please fax records Dudley, Please check on this appt. Kira Ko [facility] 02/14/2023 1:14 PM Signed Records faxed to [facility]. Adriana Pereira Pss 02/22/2023 8:35 AM Signed Called Derm [facility] office spoke with Coco. She states they have received this referral and they have called and left patient 2 messages to call their office back to schedule. As of now they are waiting for patient to call their office back. Adriana Pereira Pss Adriana Pereira Pss 03/01/2023 3:14 PM Signed Called Derm [employer] spoke with Coco. Patient is scheduled to [...] daily at bedtime. Cut in half - Kwkch-1-RSX-EPA-Fish Oil 1,000 mg (120 mg-180 mg) cap Take 2 g by mouth twice daily. - isosorbide mononitrate ER (IMDUR) 60 mg 24 hr tablet Take 60 mg by mouth twice daily. 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 Stage 3a chronic kidney disease (HCC) [N18.31] 02/14/2023 Encounter Status:Closed by ANGELICA MILLAN on 02/28/23 Normal [facility] Comprehensive metabolic 2000 panelon 02-14-2023 Albumin [Mass/Vol] 4.1 g/dL Normal 3.9-4.9 [facility] Comment on above: Order Comment: Speci men Type: BLOOD SPECIMENOrdering Facility: [facility] Address: [address] [place] [address] Performed By: #### 2 4323-8 ####[facility] LABCLIA [id number] [place] [address] ALP [Catalytic activity/Vol] 106 U/L Normal 34-123 [facility] Comment on above: Order Comment: Speci men Type: BLOOD SPECIMENOrdering Facility: [facility] Address: [address] [address] Performed By: #### 2 4323-8 ####[facility] LABCLIA [id number] [place] [address] ALT [Catalytic activity/Vol] 14 U/L Normal 7-38 [facility] Comment on above: Order Comment: Speci men Type: BLOOD SPECIMENOrdering Facility: [facility] Address: [address] [address] Performed By: #### 2 4323-8 ####[facility] LABIA [id number] [place] [address] Anion gap [Moles/Vol] 11 mmol/L Normal 9-18 [facility] Comment on above: Order Comment: Speci men Type: BLOOD SPECIMENOrdering Facility: [facility] Address: [address] [address] Performed By: #### 2 4323-8 ####[facility] LABCLIA [id number] [place] [address] AST [Catalytic activity/Vol] 11 U/L Low 13-35 [facility] Comment on above: Order Comment: Speci men Type: BLOOD SPECIMENOrdering Facility: [facility] Address: [address] [place] [address] Performed By: #### 2 4323-8 ####[facility] LABCLIA [id number] [place] [address] Bilirubin [Mass/Vol] 0.3 mg/dL Normal 0.2-1.3 [facility] Comment on above: Order Comment: Speci men Type: BLOOD SPECIMENOrdering Facility: [facility] Address: [address] [place] [address] Performed By: #### 2 4323-8 ####[facility] LABCLIA [id number] [place] [address] Calcium [Mass/Vol] 10.2 mg/dL Normal 8.5-10.2 [facility] Comment on above: Order Comment: Speci men Type: BLOOD SPECIMENOrdering Facility: [facility] Address: [address] [place] [address] Performed By: #### 2 4323-8 ####[facility] LABCLIA [id number] [place] [address] Chloride [Moles/Vol] 98 mmol/L Normal 97-105 [facility] Comment on above: Order Comment: Speci men Type: BLOOD SPECIMENOrdering Facility: [facility] Address: [address] [place], [place] [address] Performed By: #### 2 4323-8 ####[facility] LABCLIA [id number] [place] [address] CO2 [Moles/Vol] 31 mmol/L High 22-30 [facility] Comment on above: Order Comment: Speci men Type: BLOOD SPECIMENOrdering Facility: [facility] Address: [address] [address] Performed By: #### 2 4323-8 ####[facility] LABCLIA [id number] [place] [address] Creatinine [Mass/Vol] 1.25 mg/dL High 0.58-0.96 [facility] Comment on above: Order Comment: Speci men Type: BLOOD SPECIMENOrdering Facility: [facility] Address: [address] [address] Performed By: #### 2 4323-8 ####[facility] LABCLIA [id number] [place] [address] ESTIMATED GLOMERULAR FILTRATION RATE 44 mL/min/1.73m??? Low >=60 [facility] Comment on above: Order Comment: Speci men Type: BLOOD SPECIMENOrdering Facility: [facility] Address: [address] [place] [address] Result Comment: Ramila mated Glomerular Filtration Rate [...] actual GFR. Performed By: #### 2 4323-8 ####[facility] LABCLIA [id number] [place] [address] Glucose [Mass/Vol] 285 mg/dL High 74-99 [facility] Comment on above: Order Comment: Speci men Type: BLOOD SPECIMENOrdering Facility: [facility] Address: [address] [place] [address] Result Comment: The [place] Diabetes Association (ADA) provides guidance for cutoff [...] Standards of Medical Care in Diabetes 2016, [place] [employer]. Diabetes Care. 2016.39(Suppl 1). Performed By: #### 2 4323-8 ####[facility] LABCLIA [id number] [place] [address] Potassium [Moles/Vol] 3.7 mmol/L Normal 3.7-5.1 [facility] Comment on above: Order Comment: Speci men Type: BLOOD SPECIMENOrdering Facility: [facility] Address: [address] [place] [address] Performed By: #### 2 4323-8 ####[facility] LABIA [id number] [place] [address] Protein [Mass/Vol] 7.3 g/dL Normal 6.3-8.0 [facility] Comment on above: Order Comment: Speci men Type: BLOOD SPECIMENOrdering Facility: [facility] Address: [address] [place] [address] Performed By: #### 2 4323-8 ####[facility] LABCLIA [id number] [place] [address] Sodium [Moles/Vol] 140 mmol/L Normal 136-144 [facility] Comment on above: Order Comment: Speci men Type: BLOOD SPECIMENOrdering Facility: [facility] Address: [address] [place] [address] Performed By: #### 2 4323-8 ####[facility] LABCLIA [id number] [place] [address] Urea nitrogen [Mass/Vol] 33 mg/dL High 7-21 [facility] Comment on above: Order Comment: Speci men Type: BLOOD SPECIMENOrdering Facility: [facility] Address: [place] [address] Performed By: #### 2 4323-8 ####[facility] LABCLIA [id number] [place] [address] Consultation Noteon 02-15-20 23 Consultation Note [id number]#1.0 0CD:127 Normal [facility] Comment on above: Other Comment: TRACEY SIGALA PAGES CRR CULTURE URINEon 01-19-2023 CULTURE URINE Culture Observations : VERY LIGHT GROWTH OF MIXED GENITAL SAGE. NO POTENTIAL PATHOGENS SEEN. Normal [facility] Comment on above: Performed By: #### U RCX ####[facility] [address] [address]Dr. Omid Bowden UA RANDOM W/MICROSCOPICon BACTERIA TRACE Abnormal NONE SEEN [facility] Comment on above: Performed By: #### H GB #### [facility] [address] [place] [address] Dr. Omid Bowden Bilirubin Ql (U) Negative Normal NEGATIVE [facility] Comment on above: Performed By: #### H GB #### [facility] [address] [address] [address] Omid Bowden CAST NONE SEEN Normal NONE SEEN [facility] Comment on above: Performed By: #### H GB #### [facility] [address] [address] [address] Omid Bowden Clarity (U) CLEAR Normal CLEAR [facility] Comment on above: Performed By: #### H GB #### [facility] [address] [address] [address] Omdi Bowden Color (U) LT. YELLOW Normal YELLOW [facility] Comment on above: Performed By: #### H GB #### [facility] [address] [address] [address] Omid Bowden Crystals LM Nom (Urine sed) NONE SEEN Normal NONE SEEN [facility] Comment on above: Performed By: #### H GB #### [facility] [address] [place] [address] Dr. Omid Bowden Epithelial cells LM Ql (Urine sed) RARE Normal NONE SEEN /RARE [facility] Comment on above: Performed By: #### H GB #### [facility] [address] [place] [address] Dr. Omid Bowden Glucose Ql (U) Negative Normal NEGATIVE [facility] Comment on above: Performed By: #### H GB #### [facility] [address] [place] [address] Dr. Omid Bowden Hemoglobin Ql (U) Negative Normal NEGATIVE [facility] Comment on above: Performed By: #### H GB #### [facility] [address] [place] [address] Dr. Omid Bowden Ketones Ql (U) Negative Normal NEGATIVE [facility] Comment on above: Performed By: #### H GB #### [facility] [address] [place] [address] Dr. Omid Bowden LEUKOCYTES SMALL Abnormal NEGATIVE [facility] Comment on above: Performed By: #### H GB #### [facility] [address] [place] [address] Dr. Omid Bowden MUCOUS NONE SEEN Normal NONE SEEN [facility] Comment on above: Performed By: #### H GB #### [facility] [address] [place] [address] Dr. Omid Bowden Nitrite Ql (U) Negative Normal NEGATIVE [facility] Comment on above: Performed By: #### H GB #### [facility] [address] [place] [address] Dr. Omid Bowden pH (U) 6.0 [pH] Normal 5-9 [facility] Comment on above: Performed By: #### H GB #### [facility] [address] [place] [address] Dr. Omid Bowden RBC 0-2 Normal 0-2 [facility] Comment on above: Performed By: #### H GB #### [facility] [address] [place] [address] Dr. Omid Bowden SPEC GRAVITY <=1.005 Abnormal 1.005-<=1.0 25 [facility] Comment on above: Performed By: #### H GB #### [facility] [address] [address] [address] Omid Bowden UA PROTEIN Negative Normal NEGATIVE/ TRACE [facility] Comment on above: Performed By: #### H GB #### [facility] [address] [address] [address] Omid Bowden Urobilinogen Qn (U) 0.2 {Jose'U}/dL Normal 0.2 - 1. 0 [facility] Comment on above: Performed By: #### H GB #### [facility] [address] [address] [address] Omid Bowden WBC 0-2 Abnormal NONE SEEN [facility] Comment on above: Performed By: #### H GB #### [facility] [address] [address] [address] Omid Bowden Creatinine [Mass/volume] in Serum or PlasmaOrdered By: Christiano Gonzales on 11-29-2022 Creatinine [Mass/Vol] 1.37 mg/dL 0.60-1.20 [facility] - Chemistry and C hemistry - challengeOrdered By: Christiano Gonzales on 11-29-2022 GFR/1.73 sq M.predicted MDRD (S/P/Bld) [Vol rate/Area] 39.034 mL/min/{1.73_m2} [facility] No Panel InformationOrdered By: Christiano Gonzales on 11-29-2022 Pharmacy Creatinine Clearance (Chem 31.71 [facility] Urea nitrogen [Mass/volume] in Serum or PlasmaOrdered By: Christiano Gonzales on 11-29-2022 Urea nitrogen [Mass/Vol] 35 mg/dL 7-25 [facility] Surgical Pathologyon 023 Surgical Pathology (NOTE) -- Diagnosis -- VAGINA, 12:00, BIOPSY: -SQUAMOUS MUCOSA/EPITHELIUM WITH HIGH-GRADE SQUAMOUS INTRAEPITHELIAL LESION (VaIN 3). Judson Carlton M.D. Electronically Signed Out 11/28/2022 Clinical Information Pre-op Diagnosis: VAGINAL INTRAEPITHELIAL NEOPLASIA III Operative Findings: 12:00 VAGINAL tm Source of Specimen A: 12 O'CLOCK VAGINA - VAGINAL MUCOSA Gross Description HARMAN MCLEOD, 12:00 VAGINAL BX White fragments, 0.4 x 0.3 x 0.1 cm in aggregate. Entirely 1cs. tm Microscopic Description Microscopic examination performed. SURGICAL PATHOLOGY CONSULTATION Patient Name: HARMAN MCLEOD [facility] Rec: [id number] Path Number: [id number] [facility] ANATOMIC PATHOLOGY [address] [place] [id number] [facility] Comment on above: Performed By: #### P PPVS #### [facility] [address] [place] [address] Newspaper Illustrator: Fidel Hylton MD Ambulatory Visit Summaryon 0 11-22-2022 Ambulatory Visit Summary HARMAN MCLEOD :1940 Visit Date:11/22/2022 Ambulatory Visit Instructions Your Care Team Attending Physician - CHELSI CARDONA, Iliana Ramirez Primary Care Physician - Hayden CARDONA, Mateus This Is Your Medications List [...] and diastolic (congestive) heart failure Atherosclerosis of ho-chunk artery of extremity BMI 36.0-36.9,adult Brain stem [...] Stage 2 chronic kidney disease Normal [facility] General Surgery Office/Clini c Noteon 11-22-2022 General [...] DANIEL Only if needed [address] [place] [address]- Additional Instructions: Problem List/Past Medical History Ongoing 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 Normal [facility] Comment on above: Result Comment: Elec tronically Signed By: CHELSI CARDONA, Iliana Alvarez\Date and Time Signed: 11/22/22 15:17 EDT Covid-19 PCR (CVDTB)on SARS-CoV-2 (COVID-19) RNA MARII+probe Ql (Unsp spec) Not detected Normal NOT DETECTED [facility] Comment on above: Result Comment: When [...] for this test is supported by the Animal Sitter of Health and Human Service's declaration that [...] used). Performed By: #### H GB #### [facility] [address] [place] [address] Dr. Omid Bowden INFLUENZA A AND B AGon 11-16 [facility] SEE BELOW Normal [facility] Comment on above: Result Comment: Nega tive for Flu A protein angiten. Infection due to Flu A cannot be ruled out. Flu A angiten in the sample may be below the detection limit of the test. Performed By: #### I NFLUAB ####[facility] [address] [place], [place] [address]DrMedardo Bowden INFLUBNEGH SEE BELOW Normal [facility] Comment on above: Result Comment: Nega tive for Flu B protein antigen. Infection due to Flu B cannot be ruled out. Flu B antigen in the sample may be below the detection limit of the test. Performed By: #### I NFLUAB ####[facility] [address] [address]Dr. Omid Bowden INFLUENZA A AG Negative Normal NEGATIVE SEE COMMENT [facility] Comment on above: Performed By: #### I NFLUAB ####[facility] [address] [place], [place] [address]DrMedardo Bowden INFLUENZA B AG Negative Normal NEGATIVE SEE COMMENT [facility] Comment on above: Performed By: #### I NFLUAB ####[facility] [address] [place], [place] [address]DrMedardo Bowden CNOVSPon 11-09-2022 CNOVSP Visit (SP) Office ([facility]) HARMAN MCLEOD ([id number]) 1940 F Date Time Provider Department 11/09/22 2:00 PM [facility] During your visit today, we recorded the following information about you: Temperature Pulse Respiration Blood pressure 97.1 degrees 66/minute 18/minute 142/72 Weight Height 84.7 kg 1.549 m Wallace Stone MD 11/09/2022 2:24 PM Signed PATIENT NAME: Harman Mcleod CLINIC NO.: [id number] ATTENDING PHYSICIAN: Wallace Stone MD DATE OF SERVICE: November 09, [address] Banks referring provider defined for this encounter. here is an update on a follow up visit on female Harman Mcleod at the clinic 11/09/2022 Diagnosis: T1b, N0, M0- R breast, Tumor 9 mm, Grade 2, Margins negative, Negative LVI, 2 SNL negative, ER and NV >95% positive, Her2 IHC 1+ Treatment History: [...] LABS: Gluc (more content not included)... Normal [facility] CNPNon 11-09-2022 CNPN Telephone (NCCAP) HARMAN MCLEOD ([id number]) 1940 F Date Time Provider Department 11/09/22 [facility] During your visit today, we recorded the following information about you: Carlos Brooks 11/09/2022 2:45 PM Signed Vascular Consult [facility] Previous patient of Dr. Mendez 3 years or more. Janeth/Dudley: Can you please refer patient and follow up? Thanks! Carlos Pereira [facility] 11/10/2022 8:46 AM Signed Janeth: Information ready for you. Adriana Pereira [facility] 11/10/2022 9:38 AM Signed Records faxed. Adriana Pereira [facility] 11/16/2022 8:42 AM Signed Called Vascular office [...] Fully Assessed Reason for Visit: Referral Information [5405] Cmt: Vascular Consult Prescriptions as of 11/16/2022 [...] daily at bedtime. Cut in half - Magqt-9-LSO-EPA-Fish Oil 1,000 mg (120 mg-180 mg) cap Take 2 g by mouth twice daily. - isosorbide mononitrate ER (IMDUR) 60 mg 24 hr tablet Take 60 mg by mouth twice daily. 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 Encounter Status:Closed by ANNE-MARIE CARLOS on 11/16/22 [facility] Ambulatory Visit Summaryon 0 11-08-2022 Ambulatory Visit Summary HARMAN MCLEOD :1940 Visit Date:11/08/2022 Ambulatory Visit Instructions Your [...] and diastolic (congestive) heart failure Atherosclerosis of ho-chunk artery of extremity BMI 36.0-36.9,adult Brain stem [...] Stage 2 chronic kidney disease Normal [facility] General Surgery Office/Clini c Noteon 11-08-2022 General [...] and diastolic (congestive) heart failure Atherosclerosis of ho-chunk artery of extremity BMI 36.0-36.9,adult Brain stem [...] History Tran (more content not included)... Normal [facility] Comment on above: Result Comment: Elec [...] With: Iliana GAGNON MD Where: General Surgery Chelsi/Angelita Victor [facility] General Surgery Office/Clini c Noteon 11-04-2022 [...] and diastolic (congestive) heart failure Atherosclerosis of ho-chunk artery of extremity BMI 36.0-36.9,adult Brain stem [...] Family Histor (more content not included)... Normal [facility] Comment on above: Result Comment: Elec [...] by: MIGUELITO TELLEZ Date: 2022-11-02 17:17 Normal [facility] Pathology Noteon 10-26-2022 Pathology Note [id number]#1.0 0CD:127 Normal [facility] Ambulatory Visit Summaryon 0 10-25-2022 Ambulatory [...] Follow-Up Appointments Monday 2:00 PM EST With: CHELSI CARDONA, Iliana Ramirez Where: General Surgery Chelsi/Angelita Victor [facility] General Surgery Office/Clini c Noteon 10-25-2022 [...] and diastolic (congestive) heart failure Atherosclerosis of ho-chunk artery of extremity BMI 36.0-36.9,adult Brain stem [...] disease: Mo (more content not included)... Normal [facility] Comment on above: Result Comment: Elec tronically Signed By: CHELSI CARDONA, Iliana Ramirez\jazmine\Date and Time Signed: 10/25/22 16:13 EST Operative Reporton Operative Report [id number]#1.0 0CD:127 Normal [facility] RAD - Ultrasound Reporton RAD - Ultrasound Report [id number]#1.0 0CD:127 Normal [facility] NM SENTNL NODEon 10-19-2022 NM SENTNL [...] by: KRISTIN JAQUEZ Date: 2022-10-19 10:41 Normal [facility] POINT OF CARE GLUCOSEon Glucose [Mass/Vol] 153 mg/dL Critically high 74-106 T [facility] Comment on above: Performed By: #### P OCGLUC #### [facility] [address] [place] [address] Dr. Omid Bowden RAD - MISCon 10-19-2022 RAD - MISC [id number]#1.0 0CD:127 Normal [facility] RAD - MISC [id number]#1.0 0CD:127 Normal [facility] RAD - Ultrasound Reporton RAD - Ultrasound Report [id number] 0CD:127 Normal [facility] RAD - Ultrasound Report [id number] 0CD:127 Normal [facility] US BREAST SPECIMENon 023 US BREAST SPECIMEN Patient: HARMAN MCLEOD Exam Date: 10/19/2022 : 1940 Gender:F Ordering : DR ILIANA GAGNON . Admission #: [id number] Family : Order #: [id number] CLICK HERE TO VIEW EXAM RADIOLOGY REPORT PROCEDURE: US BREAST SPECIMEN COMPARISON: None. INDICATIONS: Specimen from breast FINDINGS: Breast specimen demonstrates inclusion of the targeted mass as well as the micro clip marker CONCLUSION: Targeted mass and micro clip marker included within the specimen Dictated by: Judson Bauman MD on 10/19/2022 at 11:46 Approved by: Judson Bauman MD on 10/19/2022 at 11:47 Normal [facility] US GUIDE LOCAL BREAST RTon 0 10-19-2022 US GUIDE LOCAL BREAST RT Patient: HARMAN MCLEOD Exam Date: 10/19/2022 : 1940 Gender:F Ordering : DR ILIANA GAGNON . Admission #: [id number] Family : Order #: [id number] CLICK HERE TO VIEW EXAM RADIOLOGY REPORT [...] clip marker LOCATION: Right breast 9 NEEDLE: [employer] spring hook; 20 g by 5 cm needle and wire. MEDICATION: 6 cubic cm Superficial and deep buffered 1% lidocaine. COMPLICATIONS: None. CONCLUSION: Technically successful hookwire localization. Dictated by: Judson Bauman MD on 10/19/2022 at 09:04 Approved by: Judson Bauman MD on 10/19/2022 at 09:05 Normal [facility] US SENTINEL NODEon US SENTINEL NODE [...] by: JUDSON BAUMAN Date: 2022-10-19 08:59 Normal [facility] RAD - MISCon 10-17-2022 RAD - MISC [id number]#1.0 0CD:127 Normal [facility] CBC AUTO DIFFon 10-11-2022 BASO # 0.0 103/ul Normal 0.0-0.1 [facility] Comment on above: Performed By: #### H GB #### [facility] [address] [address] [address] Omid Bowden Basophils/100 WBC (Bld) 0.2 % Normal 0.2-2.0 [facility] Comment on above: Performed By: #### H GB #### [facility] [address] [place] [address] Dr. Omid Bowden EO # 0.0 103/ul Normal 0.0-0.7 [facility] Comment on above: Performed By: #### H GB #### [facility] [address] [place] [address] Dr. Omid Bowden Eosinophils/100 WBC (Bld) 0.3 % Critically low 0.9-7.0 [facility] Comment on above: Performed By: #### H GB #### [facility] [address] [place] [address] Dr. Omid Bowden Erythrocyte distribution width (RBC) [Ratio] 13.7 % Normal 11.0-15.0 [facility] Comment on above: Performed By: #### H GB #### [facility] [address] [place] [address] Dr. Omid Bowden Hematocrit (Bld) [Volume fraction] 39.6 % Normal 36.0-48.0 [facility] Comment on above: Performed By: #### H GB #### [facility] [address] [place] [address] Dr. Omid Bowden Hemoglobin (Bld) [Mass/Vol] 12.3 g/dL Normal 12.0-16.0 [facility] Comment on above: Performed By: #### H GB #### [facility] [address] [place] [address] Dr. Omid Bowden IG # 0.06 10e3/ul Critically high 0.00-0.03 [facility] Comment on above: Performed By: #### H GB #### [facility] [address] [place] [address] Dr. Omid Bowden IG % 0.5 % Normal 0.0-0.5 [facility] Comment on above: Performed By: #### H GB #### [facility] [address] [place] [address] Dr. Omid Bowden LYMPH # 2.9 103/ul Normal 1.2-3.8 [facility] Comment on above: Performed By: #### H GB #### [facility] [address] [place] [address] Dr. Omid Bowden Lymphocytes/100 WBC (Bld) 26.2 % Normal 20.5-60.0 [facility] Comment on above: Performed By: #### H GB #### [facility] [address] [place] [address] Dr. Omid Bowden MANUAL DIFF REQ NO Normal [facility] Comment on above: Performed By: #### H GB #### [facility] [address] [place] [address] Dr. Omid Bowden MCH (RBC) [Entitic mass] 28.3 pg Normal 26.7-34.0 [facility] Comment on above: Performed By: #### H GB #### [facility] [address] [place] [address] Dr. Omid Bowden MCHC (RBC) [Mass/Vol] 31.1 g/dL Normal 29.9-35.2 [facility] Comment on above: Performed By: #### H GB #### [facility] [address] [place] [address] Dr. Omid Bowden MCV (RBC) [Entitic vol] 91.2 fL Normal 81.0-99.0 [facility] Comment on above: Performed By: #### H GB #### [facility] [address] [place] [address] Dr. Omid Bowden MONO # 0.9 103/ul Critically high 0.3-0.8 [facility] Comment on above: Performed By: #### H GB #### [facility] [address] [place] [address] Dr. Omid Bowden Monocytes/100 WBC (Bld) 8.3 % Normal 1.7-12.0 [facility] Comment on above: Performed By: #### H GB #### [facility] [address] [place] [address] Dr. Omid Bowden NEUT # 7.0 103/ul Critically high 1.4-6.5 [facility] Comment on above: Performed By: #### H GB #### [facility] [address] [place] [address] Dr. Omid Bowden Neutrophils/100 WBC (Bld) 64.5 % Normal 43.0-75.0 [facility] Comment on above: Performed By: #### H GB #### [facility] [address] [address] [address] Omid Bowden Platelet mean volume (Bld) [Entitic vol] 9.2 fL Critically low 9.5-13.5 [facility] Comment on above: Performed By: #### H GB #### [facility] [address] [place] [address] Dr. Omid Bowden PLT 346 103/ul Normal 150-450 [facility] Comment on above: Performed By: #### H GB #### [facility] [address] [place] [address] Dr. Omid Bowden RBC 4.34 106/ul Normal 4.20-5.40 [facility] Comment on above: Performed By: #### H GB #### [facility] [address] [place] [address] Dr. Omid Bowden WBC 10.9 103/ul Normal 4.0-11.0 [facility] Comment on above: Performed By: #### H GB #### [facility] [address] [place] [address] Dr. Omid Bowden PROF CHEM 8 (BAS METB)on Anion gap [Moles/Vol] 11.0 mmol/L Normal [facility] Comment on above: Performed By: #### L IPID, BMP #### [facility] [address] [place] [address] Dr. Omid Bowden Calcium [Mass/Vol] 9.6 mg/dL Normal 8.5-10.1 [facility] Comment on above: Performed By: #### L IPID, BMP #### [facility] [address] [place] [address] Dr. Omid Bowden Chloride [Moles/Vol] 99 mmol/L Normal 98-107 [facility] Comment on above: Performed By: #### L IPID, BMP #### [facility] [address] [address] [address] Omid Bowden CO2 [Moles/Vol] 32.0 mmol/L Normal 21.0-32.0 [facility] Comment on above: Performed By: #### L IPID, BMP #### [facility] [address] [address] [address] Omid Bowden Creatinine [Mass/Vol] 1.03 mg/dL Critically high 0.55-1.02 [facility] Comment on above: Performed By: #### L IPID, BMP #### [facility] [address] [address] [address] Omid Bowden EGFR-AF SENEGALESE >60 Normal >=60 [facility] Comment on above: Performed By: #### L IPID, BMP #### [facility] [address] [place] [address] Dr. Omid Bowden EGFR-NON AF SENEGALESE 52 mL/min/1.73m2 Critically low >=60 [facility] Comment on above: Performed By: #### L IPID, BMP #### [facility] [address] [address] [address] Omid Bowden Glucose [Mass/Vol] 94 mg/dL Normal 74-106 [facility] Comment on above: Performed By: #### L IPID, BMP #### [facility] [address] [place] [address] Dr. Omid Bowden Potassium [Moles/Vol] 4.0 mmol/L Normal 3.5-5.1 [facility] Comment on above: Performed By: #### L IPID, BMP #### [facility] [address] [address] [address] Omid Bowden Sodium [Moles/Vol] 138 mmol/L Normal 136-145 [facility] Comment on above: Performed By: #### L IPID, BMP #### [facility] [address] [place] [address] Dr. Omid Bowden Urea nitrogen [Mass/Vol] 28.0 mg/dL Critically high 7.0-18.0 [facility] Comment on above: Performed By: #### L IPID, BMP #### [facility] [address] [place] [address] Dr. Omid Bowedn Urea nitrogen/Creatinine [Mass ratio] 27.2 mg/mg Normal [facility] Comment on above: Performed By: #### L IPID, BMP #### [facility] [address] [place] [address] Dr. Omid Bowden PROTIMEon 10-11-2022 INR Coag (PPP) [Relative time] 0.99 {INR} Normal [facility] Comment on above: Performed By: #### H GB #### [facility] [address] [place] [address] Dr. Omid Bowden INR GUIDELINES SEE BELOW Normal [facility] Comment on above: Result Comment: PERLITA RED INR: 2.0 - 3.0 CONDITIONS NOT LISTED BELOW 2.5 - 3.5 FOR PROSTHETIC HEART VALVE REPLACEMENT 2.5 - 3.5 RECURRENT THROMBOSIS Performed By: #### H GB #### [facility] [address] [place] [address] Dr. Omid Bowden PT Coag (PPP) [Time] 10.5 s Normal 9.0-11.6 [facility] Comment on above: Performed By: #### H GB #### [facility] [address] [place] [address] Dr. Omid Bowden PTTon 10-11-2022 aPTT Coag (Bld) [Time] 28.6 s Normal 22.3-36.[address] [facility] Comment on above: Performed By: #### H GB #### [facility] [address] [place] [address] Dr. Omid Bowden Consultation Noteon 10-06-19 Consultation Note [id number] 0CD:127 Normal [facility] INSULINon 10-01-2022 Insulin 22.8 uIU/mL Normal 2.6-24.9 [facility] Comment on above: Performed By: #### L IPID, BMP #### [facility] [address] [address] [address] Omid Bowden GLYCOHEMOGLOBIN A1Con 2022 ADA RECOMMENDATION SEE BELOW Normal [facility] Comment on above: Result Comment: ADA RECOMMENDED LIMIT 4.0 - 6.0 ADA THERAPEUTIC TARGET < 7.0 ACTION SUGGESTED > 7.0 Performed By: #### H GB #### [facility] [address] [address] [address] Omid Bowden Glucose [Mass/Vol] 177 mg/dL Normal [facility] Comment on above: Performed By: #### H GB #### [facility] [address] [address] [address] Omid Bowden HbA1c (Bld) [Mass fraction] 7.8 % Critically high 4.5-6.2 [facility] Comment on above: Performed By: #### H GB #### [facility] [address] [address] [address] Omid Bowden PROF 14(COMP METB)on 023 Albumin [Mass/Vol] 3.0 g/dL Critically low 3.4-5.[address] [facility] Comment on above: Performed By: #### C MP ####[facility] [address] [address]DrMedardo Bowden Albumin/Globulin [Mass ratio] 0.7 {ratio} Normal [facility] Comment on above: Performed By: #### C MP ####[facility] [address] [address]DrMedardo Bowden ALP [Catalytic activity/Vol] 73 U/L Normal 46-116 [facility] Comment on above: Performed By: #### C MP ####[facility] [address] [address]DrMedardo Bowden ALT [Catalytic activity/Vol] 16 U/L Normal 14-59 [facility] Comment on above: Performed By: #### C MP ####[facility] [address] [id number]. Omid Bowden Anion gap [Moles/Vol] 11.3 mmol/L Normal [facility] Comment on above: Performed By: #### C MP ####[facility] [address] [address]Dr. Omid Bowden AST [Catalytic activity/Vol] 14 U/L Critically low 15-37 [facility] Comment on above: Performed By: #### C MP ####[facility] [address] [address]Dr. Omid Bowden Bilirubin [Mass/Vol] 0.3 mg/dL Normal 0.2-1.0 [facility] Comment on above: Performed By: #### C MP ####[facility] [address] [address]Dr. Omid Bowden Calcium [Mass/Vol] 9.5 mg/dL Normal 8.5-10.1 [facility] Comment on above: Performed By: #### C MP ####[facility] [address] [place], [place] [address]Dr. Omid Bowden Chloride [Moles/Vol] 102 mmol/L Normal 98-107 [facility] Comment on above: Performed By: #### C MP ####[facility] [address] [place], [place] [address]Dr. Omid Bowden CO2 [Moles/Vol] 31.1 mmol/L Normal 21.0-32.0 [facility] Comment on above: Performed By: #### C MP ####[facility] [address] [address]Dr. Omid Bowden Creatinine [Mass/Vol] 1.28 mg/dL Critically high 0.55-1.02 [facility] Comment on above: Performed By: #### C MP ####[facility] [address] [place], [place] [address]Dr. Omid Bowden EGFR-AF SENEGALESE 49 mL/min/1.73m2 Critically low >=60 [facility] Comment on above: Performed By: #### C MP ####[facility] [address] [id number]. Omid Bowden EGFR-NON AF SENEGALESE 40 mL/min/1.73m2 Critically low >=60 [facility] Comment on above: Performed By: #### C MP ####[facility] [address] [address]Dr. Omid Bowden Globulin (S) [Mass/Vol] 4.4 g/dL Normal [facility] Comment on above: Performed By: #### C MP ####[facility] [address] [address]Dr. Omid Bowden Glucose [Mass/Vol] 103 mg/dL Normal 74-106 [facility] Comment on above: Performed By: #### C MP ####[facility] [address] [address]Dr. Omid Bowden Potassium [Moles/Vol] 4.4 mmol/L Normal 3.5-5.1 [facility] Comment on above: Performed By: #### C MP ####[facility] [address] [address]Dr. Omid Bowden Protein [Mass/Vol] 7.4 g/dL Normal 6.4-8.2 [facility] Comment on above: Performed By: #### C MP ####[facility] [address] [address]Dr. Omid Bowden Sodium [Moles/Vol] 140 mmol/L Normal 136-145 [facility] Comment on above: Performed By: #### C MP ####[facility] [address] [address]Dr. Omid Bowden Urea nitrogen [Mass/Vol] 27.0 mg/dL Critically high 7.0-18.0 [facility] Comment on above: Performed By: #### C MP ####[facility] [address] [address]Dr. Omid Bowden Urea nitrogen/Creatinine [Mass ratio] 21.1 mg/mg Normal [facility] Comment on above: Performed By: #### C MP ####[facility] [address] [place], [place] [address]Bi. Omid Bowden Formson 09-29-2022 Forms [id number] 0CD:127 Normal [facility] Consent for Procedure/Surger yon 09-26-2022 Consent for Procedure/Surgery [id number] 0CD:127 Normal [facility] Consultation Noteon 09-23-19 Consultation Note [id number] 0CD:127 [facility] CNOVon 09-22-2022 CNOV Office Visit (RADTSA ) HARMAN MCLEOD ([id number]) 1940 F Date Time Provider Department 09/22/22 1:00 PM MARCIN SHAH During your visit today, we recorded the following information about you: Marcin Shah MD 2022 6:06 AM Addendum Radiation Oncology - New Patient/Consult Note PATIENT NAME: Harman Mcleod PATIENT REQUESTING PHYSICIAN: Dr. 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 PATIENT IDENTIFICATION: This patient was seen in the Department of Radiation Oncology at the [facility] with Marcin Shah MD. She was accompanied today by her family. Final recommendations will be communicated back to the requesting physician by way of the shared medical record, or letter to requesting physician via [place] mail. HISTORY OF PRESENT ILLNESS: Ms. Mcleod is an 82-year-old woman from [place], [place] who was discovered on screening mammogram from July 2022 to have an abnormality within the anterior upper outer quadrant of the right breast. This was confirmed on ultrasound and she underwent stereotactic biopsy on 08/19/2022 with pathology revealing intermediate grade IDC that was ER/NV positive HER2 negative. She has met with [...] tablet crenshaw (more content not included)... Normal [facility] CNOVSPon 09-22-2022 OVS Visit (SP) Office (HEMASA) HARMAN MCLEOD ([id number]) 1940 F Date Time Provider Department 09/22/22 11:30 AM WALLACE STONE During your visit today, we recorded the following information about you: Temperature Pulse Respiration Blood pressure 97.8 degrees 70/minute 16/minute 137/64 Weight Height 84.8 kg 1.549 m Wallace Stone MD 09/22/2022 5:19 PM Signed PATIENT NAME: Harman Mcleod CLINIC NO.: [id number] ATTENDING PHYSICIAN: Wallace Stone MD DATE OF SERVICE: September 22, [address] Ilaina Gagnon, thank you for referring Mrs Harman [...] provisional grade 1 through 2, ER and NV greater than 95% positive, HER2/holden negative with an IHC score of 1+ and FISH negative at [facility]. This patient was subsequently referred to Dr. Iliana Gagnon for surgical consultation. Patient denies any previous history of abnormal mammograms and or breast biopsy. She has had a recent bone density in [place] and was diagnosed with osteoporosis and started on Prolia as well. Patient has a sister who was diagnosed with breast cancer at the age of 82 and her daughter diagnosed with breast cancer at the age of 37. She quit smoking approximately 4 years ago. 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 She [...] mouth daily at bedtime. Cut in half Sizft-3-YBI-EPA-Fish Oil 1,000 mg (120 mg-180 mg) cap [...] high r (more content not included)... Normal [facility] Destinee 09-22-2022 JENNY Telephone (INDIA) HARSHAHARMAN Coronel ([id number]) 1940 F Date Time Provider Department 09/22/22 [...] Fully Assessed Reason for Visit: Care Coordination [3491] Cmt: Surgery update Prescriptions as of 09/22/2022 [...] daily at bedtime. Cut in half - Vkxcu-7-DJU-EPA-Fish Oil 1,000 mg (120 mg-180 mg) cap Take 2 g by mouth twice daily. - isosorbide mononitrate ER (IMDUR) 60 mg 24 hr tablet Take 60 mg by mouth twice daily. 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 Performed By: #### C VDTB ####[facility] [address] [id number]. Omid Bowden INFLUENZA A AND B AGon 09-21 INFLUANEGH SEE BELOW Normal [facility] Comment on above: Result Comment: Nega tive for Flu A protein angiten. Infection due to Flu A cannot be ruled out. Flu A angiten in the sample may be below the detection limit of the test. Performed By: #### I NFLUAB ####[facility] [address] [address]Dr. Omid Bowden INFLUBNEGH SEE BELOW Normal [facility] Comment on above: Result Comment: Nega tive for Flu B protein antigen. Infection due to Flu B cannot be ruled out. Flu B antigen in the sample may be below the detection limit of the test. Performed By: #### I NFLUAB ####[facility] [address] [address]Dr. Omid Bowden INFLUENZA A AG Negative Normal NEGATIVE SEE COMMENT [facility] Comment on above: Performed By: #### I NFLUAB ####[facility] [address] [address]Dr. Omid Bowden INFLUENZA B AG Negative Normal NEGATIVE SEE COMMENT [facility] Comment on above: Performed By: #### I NFLUAB ####[facility] [address] [id number] Bowden 37on 09-16-2022 37 -Check blood work today. Will let you know whether to continue hydrochlorothiazide or switch to a new medication called Spironolactone. -Ok to proceed with lumpectomy Normal [facility] LIPID PROFILEon 09-16-2022 CHOL-HDL RATIO NORM SEE BELOW Normal [facility] Comment on above: Result Comment: 3.3 - 4.4 LOW RISK 4.4 - 7.1 AVERAGE RISK 7.1 - 11.0 MODERATE RISK >11.0 HIGH RISK Performed By: #### L IPID, BMP #### [facility] [address] [address] [address] Omid Bowden Cholesterol [Mass/Vol] 210 mg/dL Critically high <=200 [facility] [facility] Comment on above: Performed By: #### L IPID, BMP #### [facility] [address] [address] [address] Omid Bowden Cholesterol in HDL [Mass/Vol] 49 mg/dL Normal 40-60 [facility] Comment on above: Performed By: #### L IPID, BMP #### [facility] [address] [address] [address] Omid Bowden Cholesterol in LDL [Mass/Vol] 84.2 mg/dL Normal [facility] Comment on above: Performed By: #### L IPID, BMP #### [facility] [address] [address] [address] Omid Bowden Cholesterol.total/Chol esterol in HDL [Mass ratio] 4.3 {ratio} Normal [facility] Comment on above: Performed By: #### L IPID, BMP #### [facility] [address] [address] [address] Omid Bowden HDL NORMAL > or = 60 mg/dl - LO W CARDIOVASCULAR RISK <40 mg/dl - HIGH CARDIOVASCULAR RISK Normal [facility] Comment on above: Performed By: #### L IPID, BMP #### [facility] [address] [address] [address] Omid Bowden LDL CALC NORMAL SEE BELOW Normal [facility] Comment on above: Result Comment: <100 mg/dl OPTIMAL 100 - 129 mg/dl NEAR OR ABOVE OPTIMAL 130 - 159 mg/dl BORDERLINE HIGH 160 - 189 mg/dl HIGH >190 mg/dl VERY HIGH Performed By: #### L IPID, BMP #### [facility] [address] [address] [address] Omid Bowden Triglyceride [Mass/Vol] 384 mg/dL Critically high <=150 [facility] Comment on above: Performed By: #### L IPID, BMP #### [facility] [address] [address] [address] Omid Bowden VLDL CALC 76.8 mg/dL Normal [facility] Comment on above: Performed By: #### L IPID, BMP #### [facility] [address] [place] [address] Dr. Omid Bowden Office Visiton 09-16-2022 Follow-up visit [id number] Harman Mcleod 1940 F Date Provider Department Center 09/16/2022 [id number], RAPHAEL [facility] Family History Problem Relation Age of Onset Stroke Mother Coronary artery disease Father Heart attack Father Family Status - Relation Status Age at Mother Father Level of Service:27169 [place] OFFICE/OUTPATIENT ESTABLISHED MOD MDM 30-39 MIN Reason for Visit and Comments: Atrial Fibrillation [80] Coronary Artery Disease [187] Congestive Heart Failure [127] Hypertension [076748] Peripheral Vascular Disease [458] Normal [facility] PROF CHEM 8 (BAS METB)on Anion gap [Moles/Vol] 10.8 mmol/L Normal [facility] Comment on above: Performed By: #### L IPID, BMP #### [facility] [address] [place] [address] Dr. Omid Bowden Calcium [Mass/Vol] 8.8 mg/dL Normal 8.5-10.1 [facility] Comment on above: Performed By: #### L IPID, BMP #### [facility] [address] [address] [address] Omid Bowden Chloride [Moles/Vol] 98 mmol/L Normal 98-107 [facility] Comment on above: Performed By: #### L IPID, BMP #### [facility] [address] [address] [address] Omid Bowden CO2 [Moles/Vol] 34.5 mmol/L Critically high 21.0-32.0 [facility] Comment on above: Performed By: #### L IPID, BMP #### [facility] [address] [address] [address] Omid Bowden Creatinine [Mass/Vol] 1.17 mg/dL Critically high 0.55-1.02 [facility] Comment on above: Performed By: #### L IPID, BMP #### [facility] [address] [address] [address] Omid Bowden EGFR-AF SENEGALESE 54 mL/min/1.73m2 Critically low >=60 [facility] Comment on above: Performed By: #### L IPID, BMP #### [facility] [address] [place] [address] Dr. Omid Bowden EGFR-NON AF SENEGALESE 45 mL/min/1.73m2 Critically low >=60 [facility] Comment on above: Performed By: #### L IPID, BMP #### [facility] [address] [place] [address] Dr. Omid Bowden Glucose [Mass/Vol] 193 mg/dL Critically high 74-106 T [facility] Comment on above: Performed By: #### L IPID, BMP #### [facility] [address] [place] [address] Dr. Omid Bowden Potassium [Moles/Vol] 3.3 mmol/L Critically low 3.5-5.1 [facility] Comment on above: Performed By: #### L IPID, BMP #### [facility] [address] [place] [address] Dr. Omid Bowden Sodium [Moles/Vol] 140 mmol/L Normal 136-145 [facility] Comment on above: Performed By: #### L IPID, BMP #### [facility] [address] [place] [address] Dr. Omid Bowden Urea nitrogen [Mass/Vol] 31.0 mg/dL Critically high 7.0-18.0 [facility] Comment on above: Performed By: #### L IPID, BMP #### [facility] [address] [place] [address] Dr. Omid Bowden Urea nitrogen/Creatinine [Mass ratio] 26.5 mg/mg Normal [facility] Comment on above: Performed By: #### L IPID, BMP #### [facility] [facility] [address] [place] [address] Dr. Omid Bowden Facesheeton 09-13-2022 Facesheet [id number]#1.0 0CD:127 Normal [facility] Consultation Noteon 12-22-20 22 Consultation Note [id number]#1.0 0CD:127 Normal [facility] ED Note-Physicianon 09-01-20 ED Note-Physician [id number]#1.0 0CD:127 Normal [facility] Lab Reportson 09-01-2022 Lab Reports [id number]#1.0 0CD:127 Normal [facility] Lab Reports [id number] 0CD:127 Normal [facility] Physician Referralon 022 Physician Referral [id number]#1.0 0CD:127 Normal [facility] C. DIFF PCRon 08-23-2022 C. DIFFICILE PCR Negative Normal NEGATIVE [facility] Comment on above: Performed By: #### C DIFPOC ####[facility] [address] [place] [address]Dr. Omid Bowden CBC AUTO DIFFon 08-19-2022 BASO # 0.0 103/ul Normal 0.0-0.1 [facility] Comment on above: Performed By: #### C BC ####[facility] F[address]elfcvgxv[address] [place] [address]Dr. Omid Bowden Basophils/100 WBC (Bld) 0.3 % Normal 0.2-2.0 [facility] Comment on above: Performed By: #### C BC ####[facility] Rnxxswvfbl86[address] [place] [address]Dr. Omid Bowden EO # 0.5 103/ul Normal 0.0-0.7 [facility] Comment on above: Performed By: #### C BC ####[facility] Typsolczbl[address] [place] [address]Dr. Omid Bowden Eosinophils/100 WBC (Bld) 3.2 % Normal 0.9-7.0 [facility] Comment on above: Performed By: #### C BC ####[facility] Bakmfjhryn82[address] [place] [address]Dr. Omid Bowden Erythrocyte distribution width (RBC) [Ratio] 14.1 % Normal 11.0-15.0 [facility] Comment on above: Performed By: #### C BC ####[facility] Nnxl[address] [place], [place] [address]Dr. Omid Bowden Hematocrit (Bld) [Volume fraction] 36.1 % Normal 36.0-48.0 [facility] Comment on above: Performed By: #### C BC ####[facility] [address]rs[address] [place], [place] [address]Dr. Omid Bowden Hemoglobin (Bld) [Mass/Vol] 11.7 g/dL Critically low 12.0-16.0 [facility] Comment on above: Performed By: #### C BC ####[facility] [address] [place], [place] [address]Dr. Omid Bowden IG # 0.08 10e3/ul Critically high 0.00-0.03 [facility] Comment on above: Performed By: #### C BC ####[facility] Fr[address] [place], [place] [address]Dr. Omid Bowden IG % 0.5 % Normal 0.0-0.5 [facility] Comment on above: Performed By: #### C BC ####[facility] [address] [place], [place] [address]Dr. Omid Bowden LYMPH # 1.2 103/ul Normal 1.2-3.8 [facility] Comment on above: Performed By: #### C BC ####[facility] Gesdoimaqr[address] [place], [place] [address]Dr. Omid Bowden Lymphocytes/100 WBC (Bld) 7.5 % Critically low 20.5-60.0 [facility] Comment on above: Performed By: #### C BC ####[facility] Pb[address] [place], [place] [address]Dr. Omid Bowden MANUAL DIFF REQ NO Normal [facility] Comment on above: Performed By: #### C BC ####[facility] [address] [place] [address]Dr. Omid Kal MCH (RBC) [Entitic mass] 29.2 pg Normal 26.7-34.0 [facility] Comment on above: Performed By: #### C BC ####[facility] Msyzdpqqdq65[address] [place] [address]Dr. Omid Kal MCHC (RBC) [Mass/Vol] 32.4 g/dL Normal 29.9-35.2 [facility] Comment on above: Performed By: #### C BC ####[facility] [address] [place] [address]Dr. Aixamegan Bowden MCV (RBC) [Entitic vol] 90.0 fL Normal 81.0-99.0 [facility] Comment on above: Performed By: #### C BC ####[facility] L[address] [place], [place] [address]Dr. Omid Bowden MONO # 1.0 103/ul Critically high 0.3-0.8 [facility] Comment on above: Performed By: #### C BC ####[facility] Iir[address] [place], [place] [address]Dr. Omid Bowden Monocytes/100 WBC (Bld) 6.8 % Normal 1.7-12.0 [facility] Comment on above: Performed By: #### C BC ####[facility] [address] [place] [address]Dr. Omid Bowden NEUT # 12.5 103/ul Critically high 1.4-6.5 [facility] Comment on above: Performed By: #### C BC ####[facility] [address] [place], [place] [address]DrMedardo Bowden Neutrophils/100 WBC (Bld) 81.7 % Critically high 43.0-75.0 [facility] Comment on above: Performed By: #### C BC ####[facility] [address]ir[address] [place], [place] [address]DrMedardo Bowden Platelet mean volume (Bld) [Entitic vol] 8.9 fL Critically low 9.5-13.5 [facility] Comment on above: Performed By: #### C BC ####[facility] [address] [place], [place] [address]Lh. Omid Bowden PLT 252 103/ul Normal 150-450 [facility] Comment on above: Performed By: #### C BC ####[facility] [address]16[address] [place], [place] [address]Jo. Omid Bowden RBC 4.01 106/ul Critically low 4.20-5.40 [facility] Comment on above: Performed By: #### C BC ####[facility] Q[address]ox[address] [place], [place] [address]Df. Omid Bowden WBC 15.3 103/ul Critically high 4.0-11.0 [facility] Comment on above: Performed By: #### C BC ####[facility] [address] [place], [place] [address]QsMedardo Bowden IRONon 08-19-2022 Iron [Mass/Vol] 59.0 ug/dL Normal 50.0-170.0 [facility] Comment on above: Performed By: #### H GB #### [facility] [address] [place], [place] [address] Dr. Omid Bowden MAMMO POST BIOPSY RIGHTon MAMMO POST BIOPSY RIGHT Patient: HARMAN MCLEOD Exam Date: 08/19/2022 : 1940 Gender:F Ordering : DR MATEUS PERRY . Admission #: [id number] Family : Order #: [id number] CLICK HERE TO VIEW EXAM This report includes an Addendum and supersedes previous reports for this exam. RADIOLOGY REPORT PROCEDURE: MAMMOGRAM POST BIOPSY IMAGES COMPARISON: MG MAMM RT DIAG JULIO, 08/08/2022. INDICATIONS: Mammographic mass of right breast [...] Bauman MD on 09/06/2022 at 09:57 Normal [facility] PROTIMEon 08-19-2022 INR Coag (PPP) [Relative time] 0.99 {INR} Normal [facility] Comment on above: Performed By: #### P T, PTT ####[facility] [address] [place], [place] [address]Dr. Omid Bowden INR GUIDELINES SEE BELOW Normal [facility] Comment on above: Result Comment: PERLITA RED INR: 2.0 - 3.0 CONDITIONS NOT LISTED BELOW 2.5 - 3.5 FOR PROSTHETIC HEART VALVE REPLACEMENT 2.5 - 3.5 RECURRENT THROMBOSIS Performed By: #### P T, PTT ####[facility] [address] [place], [place] [address]Dr. Omid Bowden PT Coag (PPP) [Time] 10.7 s Normal 9.0-11.6 [facility] Comment on above: Performed By: #### P T, PTT ####[facility] [address] [place], [place] [address]Dr. Omid Bowden PTTon 08-19-2022 aPTT Coag (Bld) [Time] 26.0 s Normal 22.3-36.2 [facility] Comment on above: Performed By: #### P T, PTT ####[facility] [address] [place], [place] [address]Dr. Omid Bowden US VAC ASST BX BRST RT W CLI Jose Maria 08-19-2022 US VAC ASST BX BRST RT W CLIP Patient: HARMAN MCLEOD Exam Date: 08/19/2022 : 1940 Gender:F Ordering : DR MATEUS PERRY . Admission #: [id number] Family : Order #: [id number] CLICK HERE TO VIEW EXAM This report [...] on 09/06/2022 at 09:55 Approved by: Judson Bauman MD on 09/06/2022 at 09:55 Normal [facility] CULTURE URINEon 08-16-2022 CULTURE URINE Isolate [...] R F Nitrofurantoin <=16 S F Normal [facility] Comment on above: Performed By: #### U RCX ####[facility] [address] [place], [place] [address]OcMedardo Bowden CARDIAC ADILIA ADMITon 022 CK [Catalytic activity/Vol] 128 U/L Normal 26-192 [facility] Comment on above: Performed By: #### L IPID, BMP #### [facility] [address] [place] [address] Dr. Omid Bowden CK.MB [Mass/Vol] 2.88 ng/mL Normal <=3.60 [facility] Comment on above: Performed By: #### L IPID, BMP #### [facility] [address] [place] [address] Dr. Omid Bowden HSTROP 24.1 pg/mL Normal 4.0-51.3 [facility] Comment on above: Result Comment: CUT- OFF POINTS HAVE BEEN ESTABLISHED BASED ON THE FOURTH UNIVERSAL DEFINITIONS OF MYOCARDIAL INFARCTION. THE UPPER REFERENCE LIMIT (URL) OF TROPONIN, DEFINED THE 99TH PERCENTILE OF cTnI DISTRIBUTION IN A REFERENCE POPULATION, HAS BEEN CONFIRMED THE DECISION THRESHOLD FOR MD DIAGNOSIS. Performed By: #### L IPID, BMP #### [facility] [address] [place] [address] Dr. Omid Bowden JACINTA 61 ng/mL Normal 9-82 [facility] Comment on above: Performed By: #### L IPID, BMP #### [facility] [address] [place] [address] Dr. Omid Bowden CBC AUTO DIFFon 08-14-2022 BASO # 0.0 103/ul Normal 0.0-0.1 [facility] Comment on above: Performed By: #### H GB #### [facility] [address] [place] [address] Dr. Omid Bowden Basophils/100 WBC (Bld) 0.4 % Normal 0.2-2.0 [facility] Comment on above: Performed By: #### H GB #### [facility] [address] [place] [address] Dr. Omid Bowden EO # 0.3 103/ul Normal 0.0-0.7 [facility] Comment on above: Performed By: #### H GB #### [facility] [address] [place] [address] Dr. Omid Bowden Eosinophils/100 WBC (Bld) 2.6 % Normal 0.9-7.0 [facility] Comment on above: Performed By: #### H GB #### [facility] [address] [place] [address] [address] Omid Bowden Erythrocyte distribution width (RBC) [Ratio] 14.1 % Normal 11.0-15.0 [facility] Comment on above: Performed By: #### H GB #### [facility] [address] [place] [address] [address] Omid Bowden Hematocrit (Bld) [Volume fraction] 35.5 % Critically low 36.0-48.0 [facility] Comment on above: Performed By: #### H GB #### [facility] [address] [place] [address] Dr. Omid Bowden Hemoglobin (Bld) [Mass/Vol] 11.6 g/dL Critically low 12.0-16.0 [facility] Comment on above: Performed By: #### H GB #### [facility] [address] [place] [address] Dr. Omid Bowden IG # 0.06 10e3/ul Critically high 0.00-0.03 [facility] Comment on above: Performed By: #### H GB #### [facility] [address] [place] [address] [address] Omid Bowden IG % 0.6 % Critically high 0.0-0.5 [facility] Comment on above: Performed By: #### H GB #### [facility] [address] [place] [address] Dr. Omid Bowden LYMPH # 3.4 103/ul Normal 1.2-3.8 [facility] Comment on above: Performed By: #### H GB #### [facility] [address] [place] [address] Dr. Omid Bowden Lymphocytes/100 WBC (Bld) 35.5 % Normal 20.5-60.0 [facility] Comment on above: Performed By: #### H GB #### [facility] [address] [place] [address] [address] Omid Bowden MANUAL DIFF REQ NO Normal [facility] Comment on above: Performed By: #### H GB #### [facility] [address] [place] [address] [address] Omid Bowden MCH (RBC) [Entitic mass] 29.5 pg Normal 26.7-34.0 [facility] Comment on above: Performed By: #### H GB #### [facility] [address] [place] [address] [address] Omid Bowden MCHC (RBC) [Mass/Vol] 32.7 g/dL Normal 29.9-35.2 [facility] Comment on above: Performed By: #### H GB #### [facility] [address] [place] [address] [address] Omid Bowden MCV (RBC) [Entitic vol] 90.3 fL Normal 81.0-99.0 [facility] Comment on above: Performed By: #### H GB #### [facility] [address] [place] [address] Dr. Omid Bowden MONO # 1.0 103/ul Critically high 0.3-0.8 [facility] Comment on above: Performed By: #### H GB #### [facility] [address] [place] [address] Dr. Omid Bowden Monocytes/100 WBC (Bld) 10.5 % Normal 1.7-12.0 [facility] Comment on above: Performed By: #### H GB #### [facility] [address] [place] [address] Dr. Omid Bowden NEUT # 4.8 103/ul Normal 1.4-6.5 [facility] Comment on above: Performed By: #### H GB #### [facility] [address] [place] [address] Dr. Omid Bowden Neutrophils/100 WBC (Bld) 50.4 % Normal 43.0-75.0 [facility] Comment on above: Performed By: #### H GB #### [facility] [address] [place] [address] Dr. Omid Bowden Platelet mean volume (Bld) [Entitic vol] 9.1 fL Critically low 9.5-13.5 [facility] Comment on above: Performed By: #### H GB #### [facility] [address] [place] [address] [address] Omid Bowden PLT 276 103/ul Normal 150-450 [facility] Comment on above: Performed By: #### H GB #### [facility] [address] [place] [address] [address] Omid Bowden RBC 3.93 106/ul Critically low 4.20-5.40 [facility] Comment on above: Performed By: #### H GB #### [facility] [address] [place] [address] [address] Omid Bowden WBC 9.5 103/ul Normal 4.0-11.0 [facility] Comment on above: Performed By: #### H GB #### [facility] [address] [place] [address] [address] Omid Bowden ER URINE PROFILEon 2 Bilirubin Ql (U) Negative Normal NEGATIVE [facility] Comment on above: Performed By: #### U MICRO, ERUR ####[facility] [address] [place] [address]Dr. Omid Bowden Clarity (U) CLEAR Normal CLEAR [facility] Comment on above: Performed By: #### U MICRO, ERUR ####[facility] [address] [place] [address]Dr. Omid Bowden Color (U) LT. YELLOW Normal YELLOW [facility] Comment on above: Performed By: #### U MICRO, ERUR ####[facility] [address] [place] [address]Dr. Omid Bowden ERUAHD A micrscopic examination will be performed if indicated. Normal [facility] Comment on above: Performed By: #### U MICRO, ERUR ####[facility] [address] [place] [address]Dr. Omid Bowden Glucose Ql (U) Negative Normal NEGATIVE [facility] Comment on above: Performed By: #### U MICRO, ERUR ####[facility] [address] [place] [address]Dr. Omid Bowden Hemoglobin Ql (U) Negative Normal NEGATIVE [facility] Comment on above: Performed By: #### U MICRO, ERUR ####[facility] [address] [place] [address]Dr. Omid Bowden Ketones Ql (U) Negative Normal NEGATIVE [facility] Comment on above: Performed By: #### U MICRO, ERUR ####[facility] [address] [place] [address]Dr. Omid Bowden LEUKOCYTES TRACE Abnormal NEGATIVE [facility] Comment on above: Performed By: #### U MICRO, ERUR ####[facility] [address] [place] [address]Dr. Omid Bowden Nitrite Ql (U) Negative Normal NEGATIVE [facility] Comment on above: Performed By: #### U MICRO, ERUR ####[facility] [address] [place], [place] [address]Dr. Omid Bowden pH (U) 6.0 [pH] Normal 5-9 [facility] Comment on above: Performed By: #### U MICRO, ERUR ####[facility] [address] [place], [place] [address]Dr. Omid Bowden SPEC GRAVITY 1.020 Normal 1.005-<=1.0 25 [facility] Comment on above: Performed By: #### U MICRO, ERUR ####[facility] [address] [place], [place] [address]Dr. Omid Bowden UA PROTEIN Negative Normal NEGATIVE/ TRACE [facility] Comment on above: Performed By: #### U MICRO, ERUR ####[facility] [address] [place] [address]Dr. Omid Bowden UR MICRO IND INDICATED Normal [facility] Comment on above: Performed By: #### U MICRO, ERUR ####[facility] [address] [place], [place] [address]Dr. Omid Bowden Urobilinogen Qn (U) 0.2 {Jose'U}/dL Normal 0.2 - 1. 0 [facility] Comment on above: Performed By: #### U MICRO, ERUR ####[facility] [address] [place] [address]Dr. Omid Bowden OCC BLD IMMUNO SCREENon 12-0 OCCULT BLOOD Negative Normal NEGATIVE [facility] Comment on above: Performed By: #### O BSCRN #### [facility] [address] [place] [address] [address] Omid Bowden PROF CHEM 8 (BAS METB)on Anion gap [Moles/Vol] 5.5 mmol/L Normal [facility] Comment on above: Performed By: #### L IPID, BMP #### [facility] [address] [place] [address] [address] Omid Bowden Calcium [Mass/Vol] 8.6 mg/dL Normal 8.5-10.1 [facility] Comment on above: Performed By: #### L IPID, BMP #### [facility] [address] [place] [address] Dr. Omid Bowden Chloride [Moles/Vol] 103 mmol/L Normal 98-107 [facility] Comment on above: Performed By: #### L IPID, BMP #### [facility] [address] [place] [address] Dr. Omid Bowden CO2 [Moles/Vol] 31.8 mmol/L Normal 21.0-32.0 [facility] Comment on above: Performed By: #### L IPID, BMP #### [facility] [address] [place] [address] Dr. Omid Bowden Creatinine [Mass/Vol] 0.99 mg/dL Normal 0.55-1.02 [facility] Comment on above: Performed By: #### L IPID, BMP #### [facility] [address] [place] [address] [address] Omid Bowden EGFR-AF SENEGALESE >60 Normal >=60 [facility] Comment on above: Performed By: #### L IPID, BMP #### [facility] [address] [place] [address] [address] Omid Bowden EGFR-NON AF SENEGALESE 54 mL/min/1.73m2 Critically low >=60 [facility] Comment on above: Performed By: #### L IPID, BMP #### [facility] [address] [place] [address] [address] Omid Bowden Glucose [Mass/Vol] 112 mg/dL Critically high 74-106 T [facility] Comment on above: Performed By: #### L IPID, BMP #### [facility] [address] [place] [address] [address] Omid Bowden Potassium [Moles/Vol] 3.3 mmol/L Critically low 3.5-5.1 [facility] Comment on above: Performed By: #### L IPID, BMP #### [facility] [address] [place] [address] [address] Omid Bowden Sodium [Moles/Vol] 137 mmol/L Normal 136-145 [facility] Comment on above: Performed By: #### L IPID, BMP #### [facility] [address] [place] [address] [address] Omid Bowden Urea nitrogen [Mass/Vol] 20.0 mg/dL Critically high 7.0-18.0 [facility] Comment on above: Performed By: #### L IPID, BMP #### [facility] [address] [place] [address] [address] Omid Bowden Urea nitrogen/Creatinine [Mass ratio] 20.2 mg/mg Normal [facility] Comment on above: Performed By: #### L IPID, BMP #### [facility] [address] [place] [address] [address] Omid Bowden URINE MICROSCOPIC ONLYon BACTERIA TRACE Abnormal NONE SEEN [facility] Comment on above: Performed By: #### U MICRO, ERUR ####[facility] [address] [place] [address]DrMedardo Bowden Bacteria identified Cx Nom (U) INDICATED Normal [facility] Comment on above: Performed By: #### U MICRO, ERUR ####[facility] [address] [place] [address]DrMedardo Bowden CAST NONE SEEN Normal NONE SEEN [facility] Comment on above: Performed By: #### U MICRO, ERUR ####[facility] [address] [place] [address]Dr. Omid Bowden Crystals LM Nom (Urine sed) NONE SEEN Normal NONE SEEN [facility] Comment on above: Performed By: #### U MICRO, ERUR ####[facility] [address] [place] [address]Dr. Omid Bowden Epithelial cells LM Ql (Urine sed) FEW Abnormal NONE SEEN /RARE [facility] Comment on above: Performed By: #### U MICRO, ERUR ####[facility] [address] [place] [address]Dr. Omid Bowden MUCOUS NONE SEEN Normal NONE SEEN [facility] Comment on above: Performed By: #### U MICRO, ERUR ####[facility] [address] [place] [address]Dr. Omid Bowden RBC 0-2 Normal 0-2 [facility] Comment on above: Performed By: #### U MICRO, ERUR ####[facility] [address] [place] [address]Dr. Omid Bowden WBC 20-50 Abnormal NONE SEEN [facility] Comment on above: Performed By: #### U MICRO, ERUR ####[facility] [address] [place] [address]Dr. Omid Bowden XR CHEST 1 Von 08-14-2022 [...] [place] Date: 2022-08-14 00:46 Normal [facility] SARS-CoV-2 (COVID-19) RNA MARII+probe Ql (Unsp spec) Not detected Normal NOT DETECTED [facility] Comment on above: Result Comment: When [...] for this test is supported by the Animal [employer] of Health and Human Service's declaration that [...] longer be used). Performed By: #### C [facility] #### [facility] [address] [place] [address] Dr. Omid Bowden MG MAMM RT DIAG FU 022 MG MAMM RT DIAG FU Patient: HARMAN MCLEOD Exam Date: 08/08/2022 : 1940 Gender:F Ordering : DR MATEUS PERRY . Admission #: [id number] Family : Order #: [id number] CLICK HERE TO VIEW EXAM RADIOLOGY REPORT [...] uterine cancer at age 39. LOCATION: [facility] BREAST COMPOSITION: Scattered areas fibroglandular density. [...] George M.D. on 08/08/2022 at 15:28 Normal [facility] PROF CHEM 8 (BAS METB)on Anion gap [Moles/Vol] 9.3 mmol/L Normal [facility] Comment on above: Performed By: #### B MP #### [facility] [address] [place] [address] Dr. Omid Bowden Calcium [Mass/Vol] 8.1 mg/dL Critically low 8.5-10.1 [facility] Comment on above: Performed By: #### B MP #### [facility] [address] [place] [address] [address] Omid Bowden Chloride [Moles/Vol] 100 mmol/L Normal 98-107 [facility] Comment on above: Performed By: #### B MP #### [facility] [address] [place] [address] Dr. Omid Bowden CO2 [Moles/Vol] 31.9 mmol/L Normal 21.0-32.0 [facility] Comment on above: Performed By: #### B MP #### [facility] [address] [place] [address] [address] Omid Bowden Creatinine [Mass/Vol] 1.25 mg/dL Critically high 0.55-1.02 [facility] Comment on above: Performed By: #### B MP #### [facility] [address] [place] [address] Dr. Omid Bowden EGFR-AF SENEGALESE 50 mL/min/1.73m2 Critically low >=60 [facility] Comment on above: Performed By: #### B MP #### [facility] [address] [place] [address] [address] Omid Bowden EGFR-NON AF SENEGALESE 41 mL/min/1.73m2 Critically low >=60 [facility] Comment on above: Performed By: #### B MP #### [facility] [address] [place] [address] [address] Omid Bowden Glucose [Mass/Vol] 215 mg/dL Critically high 74-106 T [facility] Comment on above: Performed By: #### B MP #### [facility] [address] [place] [address] [address] Omid Bowden Potassium [Moles/Vol] 3.2 mmol/L Critically low 3.5-5.1 [facility] Comment on above: Performed By: #### B MP #### [facility] [address] [place] [address] Dr. Omid Bowden Sodium [Moles/Vol] 138 mmol/L Normal 136-145 [facility] Comment on above: Performed By: #### B MP #### [facility] [address] [address] [address] Omid Bowden Urea nitrogen [Mass/Vol] 32.0 mg/dL Critically high 7.0-18.0 [facility] Comment on above: Performed By: #### B MP #### [facility] [address] [address] [address] Omid Bowden Urea nitrogen/Creatinine [Mass ratio] 25.6 mg/mg Normal [facility] Comment on above: Performed By: #### B MP #### [facility] [address] [address] [address] Omid Bowden US BREAST RIGHT LIMITEDon US BREAST RIGHT LIMITED Patient: HARMAN MCLEOD Exam Date: 08/08/2022 : 1940 Gender:F Ordering : DR MATEUS PERRY . Admission #: [id number] Family : Order #: [id number] CLICK HERE TO VIEW EXAM RADIOLOGY REPORT [...] uterine cancer at age 39. LOCATION: [facility] BREAST COMPOSITION: Scattered areas fibroglandular density. [...] M.D. on 08/08/2022 at 15:28 Normal [facility] CALCIUMon 08-02-2022 Calcium [Mass/Vol] 8.9 mg/dL Normal 8.5-10.1 [facility] Comment on above: Performed By: #### H GB #### [facility] [address] [address] [address] Omid Bowden CREATININEon 08-02-2022 Creatinine [Mass/Vol] 1.19 mg/dL Critically high 0.55-1.02 [facility] Comment on above: Performed By: #### H GB #### [facility] [address] [address] [address] Omid Bowden EGFR-AF SENEGALESE 53 mL/min/1.73m2 Critically low >=60 [facility] Comment on above: Performed By: #### H GB #### [facility] [address] [address] [address] Omid Bowden EGFR-NON AF SENEGALESE 44 mL/min/1.73m2 Critically low >=60 [facility] Comment on above: Performed By: #### H GB #### [facility] [address] [address] [address] Omid Bowden MG MAMM SCREEN 3D DAVID CADon 07-19-2022 MG MAMM SCREEN 3D DAVID CAD Patient: HARMAN MCLEOD Exam Date: 07/19/2022 : 1940 Gender:F Ordering : DR MATEUS PERRY . Admission #: [id number] Family : Order #: [id number] CLICK HERE TO VIEW EXAM RADIOLOGY REPORT [...] uterine cancer at age 39. LOCATION: [facility] BREAST COMPOSITION: Scattered areas fibroglandular density. [...] Bauman MD on 07/20/2022 at 07:33 Normal [facility] XR DEXA BONE DENSITYon 07-19 XR [...] by: JUDSON BAUMAN Date: 2022-07-19 20:17 Normal [facility] CALCIUM, IONIC (POC)on 06-28 POC Ionized Calcium 1.21 mmol/L 1.15 - 1 .33 mmol/L [facility] CHLORIDE (POC)on 06-28-2022 Chloride [Moles/Vol] 103 mmol/L 98 - 10 7 mmol/L [facility] Creatinine W/GFR Point of Ca reon 06-28-2022 Creatinine [Mass/Vol] 0.93 mg/dL 0.51 - 1.19 mg/dL [facility] eGFR, POC mL/min/1.73 m2 [facility] Comment on above: Effective Jun 13, 2022 [...] 1.56 mmol/L High 0.56 - 1.39 mmol/L [facility] No Panel Informationon 06-28 Interpretation and review of laboratory results Abnormal [facility] POC Glucose Fingerstickon Glucose [Mass/Vol] 135 mg/dL High 65 - 105 mg/dL [facility] Interpretation and review of laboratory results Abnormal [facility] POCT Glucoseon 06-28-2022 Glucose [Mass/Vol] 147 mg/dL High 74 - 100 mg/dL [facility] POCT urea (BUN)on 06-28-2022 Urea nitrogen [Mass/Vol] 20 mg/dL 8 - 26 mg/dL [facility] POTASSIUM (POC)on 06-28-2022 Potassium [Moles/Vol] 3.7 mmol/L 3.5 - 4.5 mmol/L [facility] SODIUM (POC)on 06-28-2022 Sodium [Moles/Vol] 141 mmol/L 138 - 146 mmol/L [facility] PROF CHEM 8 (BAS METB)on Anion gap [Moles/Vol] 9.0 mmol/L Normal [facility] Comment on above: Performed By: #### B MP ####[facility] [address] [address]Dr. Omid Bowden Calcium [Mass/Vol] 9.0 mg/dL Normal 8.5-10.1 [facility] Comment on above: Performed By: #### B MP ####[facility] [address] [address]Dr. Omid Bowden Chloride [Moles/Vol] 98 mmol/L Normal 98-107 [facility] Comment on above: Performed By: #### B MP ####[facility] [address] [address]Dr. Omid Kal CO2 [Moles/Vol] 33.2 mmol/L Critically high 21.0-32.0 [facility] Comment on above: Performed By: #### B MP ####[facility] [address] [place], [place] [address]Dr. Omid Bowden Creatinine [Mass/Vol] 1.32 mg/dL Critically high 0.55-1.02 [facility] Comment on above: Performed By: #### B MP ####[facility] [address] [address]Dr. Omid Bowden EGFR-AF SENEGALESE 47 mL/min/1.73m2 Critically low >=60 [facility] Comment on above: Performed By: #### B MP ####[facility] [address] [address]Dr. Omid Bowden EGFR-NON AF SENEGALESE 39 mL/min/1.73m2 Critically low >=60 [facility] Comment on above: Performed By: #### B MP ####[facility] [address] [id number][address] Omid Bowden Glucose [Mass/Vol] 220 mg/dL Critically high 74-106 [facility] Comment on above: Performed By: #### B MP ####[facility] [address] [id number]. Omid Bowden Potassium [Moles/Vol] 3.2 mmol/L Critically low 3.5-5.1 [facility] Comment on above: Performed By: #### B MP ####[facility] [address] [address]Dr. Omid Bowden Sodium [Moles/Vol] 137 mmol/L Normal 136-145 [facility] Comment on above: Performed By: #### B MP ####[facility] [address] [address]Dr. Omid Bowden Urea nitrogen [Mass/Vol] 31.0 mg/dL Critically high 7.0-18.0 [facility] Comment on above: Performed By: #### B MP ####[facility] [address] [id number] Omid Bowden Urea nitrogen/Creatinine [Mass ratio] 23.5 mg/mg Normal [facility] Comment on above: Performed By: #### B MP ####[facility] [address] [address]Dr. Omid Bowden ECHOCARDIO M/2D COMPLETEon 0 04-12-2022 ECHOCARDIO M/2D COMPLETE Patient: HARMAN MCLEOD Exam Date: 04/12/2022 : 1940 Gender:F Ordering : SONALI MCKINNEY [facility] Admission #: [id number] Family : Order #: [id number] CLICK HERE TO VIEW EXAM ECHOCARDIOGRAM REPORT [...] Keyes M.D. on 04/12/2022 at 19:15 Normal [facility] PROF CHEM 8 (BAS METB)on Anion gap [Moles/Vol] 12.4 mmol/L Normal [facility] Comment on above: Performed By: #### B MP ####[facility] [address] [address]DrMedardo Bowden Calcium [Mass/Vol] 9.1 mg/dL Normal 8.5-10.1 [facility] Comment on above: Performed By: #### B MP ####[facility] [address] [phone] Bowden Chloride [Moles/Vol] 100 mmol/L Normal 98-107 [facility] Comment on above: Performed By: #### B MP ####[facility] [address] [phone] Bowden CO2 [Moles/Vol] 33.0 mmol/L Critically high 21.0-32.0 [facility] Comment on above: Performed By: #### B MP ####[facility] [address] [address]Dr. Omid Bowden Creatinine [Mass/Vol] 1.15 mg/dL Critically high 0.55-1.02 [facility] Comment on above: Performed By: #### B MP ####[facility] [address] [place], [place] [address]Dr. Omid Kal EGFR-AF SENEGALESE 55 mL/min/1.73m2 Critically low >=60 [facility] Comment on above: Performed By: #### B MP ####[facility] [address] [place], [place] [address]Dr. Aixamegan Kal EGFR-NON AF SENEGALESE 46 mL/min/1.73m2 Critically low >=60 [facility] Comment on above: Performed By: #### B MP ####[facility] [address] [place], [place] [address]Dr. Aixamegan Bowden Glucose [Mass/Vol] 167 mg/dL Critically high 74-106 [facility] Comment on above: Performed By: #### B MP ####[facility] [address] [place], [place] [address]Dr. Omid Bowden Potassium [Moles/Vol] 3.4 mmol/L Critically low 3.5-5.1 [facility] Comment on above: Performed By: #### B MP ####[facility] [address] [address]Dr. Omid Bowden Sodium [Moles/Vol] 142 mmol/L Normal 136-145 [facility] Comment on above: Performed By: #### B MP ####[facility] [address] [place], [place] [address]Dr. Omid Bowden Urea nitrogen [Mass/Vol] 23.0 mg/dL Critically high 7.0-18.0 [facility] Comment on above: Performed By: #### B MP ####[facility] [address] [phone]. Omid Bowden Urea nitrogen/Creatinine [Mass ratio] 20.0 mg/mg Normal [facility] Comment on above: Performed By: #### B MP ####[facility] [address] [address]Dr. Omid Bowden SYMPTOMATIC COVID-19 ANTIGEN on 03-16-2022 EUA Statement SEE BELOW Normal [facility] Comment on above: Result Comment: This [...] is revoked sooner. Performed By: #### L AMBER HARDING #### [facility] [address] [place] [address] Dr. Omid Bowden SARS-CoV-2 (COVID-19) RNA MARII+probe Ql (Unsp spec) Positive Critically abnormal NEGATIVE [facility] Comment on above: Performed By: #### L MEHDI BMP #### [facility] [address] [place] [address] Dr. Omid Bowden HEMOGLOBINon 03-15-2022 Hemoglobin (Bld) [Mass/Vol] 12.3 g/dL Normal 12.0-16.0 [facility] Comment on above: Performed By: #### H GB #### [facility] [address] [place] [address] Dr. Omid Bowden BNPon 02-15-2022 Natriuretic peptide B (Bld) [Mass/Vol] 598.0 pg/mL Normal <=1,800.0 [facility] Comment on above: Performed By: #### L AMBER HARDING #### [facility] [address] [place] [address] Dr. Omid Bowden PROF CHEM 8 (BAS METB)on Anion gap [Moles/Vol] 11.9 mmol/L Normal [facility] Comment on above: Performed By: #### L IPID, BMP #### [facility] [address] [place] [address] Dr. Omid Bowden Calcium [Mass/Vol] 9.1 mg/dL Normal 8.5-10.1 [facility] Comment on above: Performed By: #### L IPID, BMP #### [facility] [address] [place] [address] Dr. Omid Bowden Chloride [Moles/Vol] 98 mmol/L Normal 98-107 [facility] Comment on above: Performed By: #### L IPID, BMP #### [facility] [address] [place] [address] Dr. Omid Bowden CO2 [Moles/Vol] 33.2 mmol/L Critically high 21.0-32.0 [facility] Comment on above: Performed By: #### L IPID, BMP #### [facility] [address] [place] [address] Dr. Omid Bowden Creatinine [Mass/Vol] 1.28 mg/dL Critically high 0.55-1.02 [facility] Comment on above: Performed By: #### L IPID, BMP #### [facility] [address] [place] [address] Dr. Omid Bowden EGFR-AF SENEGALESE 49 mL/min/1.73m2 Critically low >=60 [facility] Comment on above: Performed By: #### L IPID, BMP #### [facility] [address] [place] [address] Dr. Omid Bowden EGFR-NON AF SENEGALESE 40 mL/min/1.73m2 Critically low >=60 [facility] Comment on above: Performed By: #### L IPID, BMP #### [facility] [address] [place] [address] Dr. Omid Bowden Glucose [Mass/Vol] 182 mg/dL Critically high 74-106 T [facility] Comment on above: Performed By: #### L IPID, BMP #### [facility] [address] [address] [address] Omid Bowden Potassium [Moles/Vol] 3.1 mmol/L Critically low 3.5-5.1 [facility] Comment on above: Performed By: #### L IPID, BMP #### [facility] [address] [address] [address] Omid Bowden Sodium [Moles/Vol] 140 mmol/L Normal 136-145 [facility] Comment on above: Performed By: #### L IPID, BMP #### [facility] [address] [place] [address] Dr. Omid Bowden Urea nitrogen [Mass/Vol] 30.0 mg/dL Critically high 7.0-18.0 [facility] Comment on above: Performed By: #### L IPID, BMP #### [facility] [address] [place] [address] Dr. Omid Bowden Urea nitrogen/Creatinine [Mass ratio] 23.4 mg/mg Normal [facility] Comment on above: Performed By: #### L IPID, BMP #### [facility] [address] [place] [address] Dr. Omid Bowden XR CHEST 2 Von [...] by: ALFONSO GEORGE Date: 2022-02-09 11:53 Normal [facility] No Panel Informationon 12-13 [facility] POCT Glucoseon 12-13-2021 Glucose [Mass/Vol] 196 mg/dL High 74 - 100 mg/dL [facility] Interpretation and review of laboratory results Abnormal [facility] POTASSIUM (POC)on 12-13-2021 Potassium [Moles/Vol] 3.7 mmol/L 3.5 - 4.5 mmol/L [facility] TYPE AND SCREENon 12-10-2021 ABO/Rh Positive [facility] Arm Band Number BE [id number] Mine lt Expiration Date 12/16/2021,2359 [facility] [employer] EKG 12 leadOrdered By: Dennis Garcia on 12-07-2021 Atrial Rate 66 BPM [facility] Work Phone: P [place] 67 degrees [facility] Work Phone: P-R Interval 126 ms [facility] Work Phone: Q-T Interval 466 ms [facility] Work Phone: QRS Duration 150 ms [facility] Work Phone: QTc Calculation (Bazett) 488 ms [facility] Work Phone: R [place] 32 degrees [facility] Work Phone: T [place] 161 degrees [facility] Work Phone: Ventricular Rate 66 BPM [facility] Work Phone: [employer] Work Phone: EKG 12 leadon 12-07-2021 Sinus rhythm with Premature atrial complexes Left bundle branch block Abnormal ECG When compared with ECG of 12-MAY-2021 12:39, T wave inversion now evident in Inferior leads PN STV Dennis Sorensen MD - 12/07/2021 Sinus rhythm with Premature atrial complexes Left bundle branch block Abnormal ECG When compared with ECG of 12-MAY-2021 12:39, T wave inversion now evident in Inferior leads [employer] Phone: CBC auto differentialon 11-10 Absolute Eos # 0.13 [facility] th Absolute Immature Granulocyte 0.12 [facility] Absolute Lymph # 3.18 [facility] [place] # 1.22 [facility] Basophils (Bld) [#/Vol] 0.05 10*3/uL [facility] Basophils/100 WBC (Bld) 0 % 0 - 2 % [facility] Eosinophils/100 WBC (Bld) 1 % 1 - 4 % [facility] Hematocrit (Bld) [Volume fraction] 38.4 % 36.3 - 47.1 % [facility] Hemoglobin.gastrointes tinal spec 1 Ql (Stl) 12.2 g/dL 11.9 - 15.1 g/dL [facility] Immature granulocytes/100 WBC (Bld) 1 % High 0 [facility] Interpretation and review of laboratory results Abnormal [facility] Lymphocytes/100 WBC (Bld) 25 % 24 - 43 % [facility] MCH (RBC) [Entitic mass] 29.9 pg 25.2 - 33.5 pg [facility] MCHC (RBC) [Mass/Vol] 31.8 g/dL 28.4 - 34.8 g/dL [facility] MCV (RBC) [Entitic vol] 94.1 fL 82.6 - 102.9 fL [facility] Monocytes/100 WBC (Bld) 10 % 3 - 12 % [facility] NRBC Automated 0.0 0.0 per 100 WBC [facility] Platelet distribution width (Bld) [Ratio] 14.5 % High 11.8 - 14.4 % [facility] Platelet mean volume (Bld) [Entitic vol] 10.1 fL 8.1 - 13.5 fL [facility] Platelets (Bld) [#/Vol] 266 10*3/uL [facility] RBC (Bld) [#/Vol] 4.08 10*6/uL 3.95 - 5.1 1 m/uL [facility] RBC (Bld) [#/Vol] ANISOCYTOSIS PRESENT [facility] Segmented neutrophils/100 WBC (Bld) 63 % 36 - 65 % [facility] Segs Absolute 7.88 [facility] h WBC (Bld) [#/Vol] 12.6 10*3/uL [facility] Comprehensive Metabolic Pane l w/ Reflex to MGon 12-06-2021 Albumin [Mass/Vol] 3.7 g/dL 3.5 - 5.2 g/dL [facility] Albumin/Globulin [Mass ratio] 1.1 {ratio} [facility] ALP (Bld) [Catalytic activity/Vol] 93 U/L 35 - 104 U/L [facility] ALT [Catalytic activity/Vol] 12 U/L 5 - 33 U/L [facility] Anion gap [Moles/Vol] 14 mmol/L 9 - 17 mmol/L [facility] AST [Catalytic activity/Vol] 12 U/L <32 [facility] Bilirubin [Mass/Vol] 0.25 mg/dL Low 0.3 - 1 .2 mg/dL [facility] Calcium [Mass/Vol] 9.1 mg/dL 8.6 - 10. 4 mg/dL [facility] Chloride [Moles/Vol] 95 mmol/L Low 98 - 10 7 mmol/L [facility] CO2 [Moles/Vol] 30 mmol/L 20 - 31 mmol/L [facility] Creatinine [Mass/Vol] 1.07 mg/dL High 0.50 - 0.90 mg/dL [facility] Free PSA/Total PSA [Mass fraction] 7.2 g/dL 6.4 - 8.3 g/dL [facility] GFR 60 mL/min Low >60 [facility] GFR Non- 49 mL/min Low >60 [facility] GFR/1.73 sq M.predicted MDRD (S/P/Bld) [Vol rate/Area] [facility] Comment on above: Average GFR for 70 o r more years old: 75 mL/min/1.73sq m Chronic Kidney Disease: <60 mL/min/1.73sq m Kidney failure: <15 mL/min/1.73sq m eGFR calculated using average adult body mass. Additional eGFR calculator available at: http://www.[employer]/multiple_crcl_2011.htm Glucose [Mass/Vol] 188 mg/dL High 70 - 99 mg/dL [facility] Interpretation and review of laboratory results Abnormal [facility] Potassium [Moles/Vol] 3.3 mmol/L Low 3.7 - 5.3 mmol/L [facility] Sodium [Moles/Vol] 139 mmol/L 135 - 144 mmol/L [facility] Urea nitrogen (BldV) [Mass/Vol] 22 mg/dL 8 - 23 mg/dL [facility] Magnesiumon 12-06-2021 Magnesium [Mass/Vol] 1.6 mg/dL 1.6 - 2 .6 mg/dL [facility] No Panel Informationon 12-06 No acute process. [facility] EXAMINATION: TWO XRAY VIEWS OF THE [...] The osseous structures are without acute process. [facility] Kael Freeman MD - 12/06/2021 EXAMINATION: [...] without acute process. IMPRESSION: No acute process. [employer] Phone: Radiology Study observation (narrative) [employer] Phone: No Panel InformationOrdered By: Kael Freeman on 12-06-2021 [employer] Phone: Creatinine W/GFR Point of Ca reOrdered By: Kin Abarca on 06-15-2021 Creatinine [Mass/Vol] 0.89 mg/dL 0.51 - 1.19 mg/dL [employer] Phone: GFR Non- >60 >60 mL/min [employer] Phone: GFR/1.73 sq M.predicted MDRD (S/P/Bld) [Vol rate/Area] mL/min/{1.73_m2} >60 mL/min [employer] Phone: GFR/1.73 sq M.predicted MDRD (S/P/Bld) [Vol rate/Area] [employer] Phone: Comment on above: Average GFR for 70 o r more years old: 75 mL/min/1.73sq m Chronic Kidney Disease: <60 mL/min/1.73sq m Kidney failure: <15 mL/min/1.73sq m eGFR calculated using average adult body mass. Additional eGFR calculator available at: http://www.[employer]/multiple_crcl_2012.htm No Panel InformationOrdered By: Kin Abarca on 06-15-2021 [employer] Phone: POC Glucose FingerstickOrder ed By: Kin Abarca on 06-15-2021 Glucose [Mass/Vol] 163 mg/dL High 65 - 105 mg/dL [employer] Phone: Interpretation and review of laboratory results Abnormal [employer] Phone: [employer] Phone: POCT GlucoseOrdered By: Kin Abarca on 06-15-2021 Glucose [Mass/Vol] 186 mg/dL High 74 - 100 mg/dL [employer] Phone: Interpretation and review of laboratory results Abnormal [employer] Phone: POTASSIUM (POC)Ordered By: Yuriy Abarca on 06-15-2021 Potassium [Moles/Vol] 4.5 mmol/L 3.5 - 4.5 mmol/L [employer] Phone: EKG 12 leadOrdered By: Antoni Burks on 05-13-2021 Atrial Rate 67 BPM [employer] Phone: P [place] 58 degrees [employer] Phone: P-R Interval 130 ms [employer] Phone: Q-T Interval 504 ms [employer] Phone: QRS Duration 144 ms [employer] Phone: QTc Calculation (Bazett) 532 ms [employer] Phone: R [place] 20 degrees [employer] Phone: T [place] 117 degrees [employer] Phone: Ventricular Rate 67 BPM [employer] Phone: Sinus rhythm with Premature atrial complexes Left bundle branch block Abnormal ECG No previous ECGs available [employer] Phone: Virgilio, Mhpn Incoming E kg Results From [facility] - 05/13/2021 1:30 PM EDT Sinus rhythm with Premature atrial complexes Left bundle branch block Abnormal ECG No previous ECGs available [employer] Phone: [employer] Phone: Basic Metabolic Panel w/ Ref alexis to MGOrdered By: Latonia Burks on 05-12-2021 Anion gap [Moles/Vol] 13 mmol/L 9 - 17 mmol/L [employer] Phone: Calcium [Mass/Vol] 9.4 mg/dL 8.6 - 10. 4 mg/dL [employer] Phone: Chloride [Moles/Vol] 102 mmol/L 98 - 10 7 mmol/L [employer] Phone: CO2 [Moles/Vol] 28 mmol/L 20 - 31 mmol/L [employer] Phone: Creatinine [Mass/Vol] 0.94 mg/dL High 0.50 - 0.90 mg/dL [employer] Phone: GFR >60 >60 mL/min [employer] Phone: GFR Non- 58 mL/min Low >60 [employer] Phone: GFR/1.73 sq M.predicted MDRD (S/P/Bld) [Vol rate/Area] [employer] Phone: Comment on above: Average GFR for 70 o r more years old: 75 mL/min/1.73sq m Chronic Kidney Disease: <60 mL/min/1.73sq m Kidney failure: <15 mL/min/1.73sq m eGFR calculated using average adult body mass. Additional eGFR calculator available at: http://www.[employer]/multiple_crcl_2012.htm GFR/1.73 sq M.predicted MDRD (S/P/Bld) [Vol rate/Area] NOT REPORTED [employer] Phone: Glucose [Mass/Vol] 119 mg/dL High 70 - 99 mg/dL [employer] Phone: Interpretation and review of laboratory results Abnormal [employer] Phone: Potassium [Moles/Vol] 4.0 mmol/L 3.7 - 5.3 mmol/L [facility] Work Phone: Sodium [Moles/Vol] 143 mmol/L 135 - 144 mmol/L [employer] Phone: Urea nitrogen (BldV) [Mass/Vol] 18 mg/dL 8 - 23 mg/dL [employer] Phone: Urea nitrogen/Creatinine (Bld) [Mass ratio] NOT REPORTED [employer] Phone: [employer] Work Phone: CBC auto differentialOrdered By: Latonia Burks on 05-12-2021 Absolute Eos # 0.26 [facility] Work Phone: Absolute Immature Granulocyte 0.04 [employer] Work Phone: Absolute Lymph # 3.26 [facility] Work Phone: Absolute [place] # 0.84 [facility] Work Phone: Basophils (Bld) [#/Vol] 0.05 10*3/uL [facility] Work Phone: Basophils/100 WBC (Bld) 1 % 0 - 2 % [employer] Phone: Differential Type NOT REPORTED [employer] Phone: Eosinophils/100 WBC (Bld) 3 % 1 - 4 % [employer] Phone: Hematocrit (Bld) [Volume fraction] 36.9 % 36.3 - 47.1 % [employer] Phone: Hemoglobin.gastrointes tinal spec 1 Ql (Stl) 11.2 g/dL Low 11.9 - 15.1 g/dL [employer] Phone: Immature granulocytes/100 WBC (Bld) 0 % 0 [employer] Phone: Interpretation and review of laboratory results Abnormal [employer] Phone: Lymphocytes/100 WBC (Bld) 32 % 24 - 43 % [employer] Phone: MCH (RBC) [Entitic mass] 28.3 pg 25.2 - 33.5 pg [facility] [employer] Phone: MCHC (RBC) [Mass/Vol] 30.4 g/dL 28.4 - 34.8 g/dL [employer] Phone: MCV (RBC) [Entitic vol] 93.2 fL 82.6 - 102.9 fL [employer] Phone: Monocytes/100 WBC (Bld) 8 % 3 - 12 % [employer] Phone: NRBC Automated 0.0 0.0 per 100 WBC [employer] Phone: Platelet distribution width (Bld) [Ratio] 13.8 % 11.8 - 14.4 % [employer] Phone: Platelet Estimate NOT REPORTED [employer] Phone: Platelet mean volume (Bld) [Entitic vol] 9.5 fL 8.1 - 13.5 fL [employer] Phone: Platelets (Bld) [#/Vol] 310 10*3/uL [employer] Phone: RBC (Bld) [#/Vol] 3.96 10*6/uL 3.95 - 5.1 1 m/uL [employer] Phone: RBC (Bld) [#/Vol] NOT REPORTED [employer] Phone: Segmented neutrophils/100 WBC (Bld) 56 % 36 - 65 % [employer] Phone: Segs Absolute 5.70 [employer] Work Phone: WBC (Bld) [#/Vol] 10.2 10*3/uL [employer] Phone: WBC (Bld) [#/Vol] NOT REPORTED [employer] Phone: [employer] Phone: XR CHEST (2 VW)Ordered By: Joanie Burks on 05-12-2021 Senescent changes compatible with the age of the patient. No evidence of acute cardiopulmonary process. [employer] Phone: EXAMINATION: TWO XRA Y VIEWS OF [...] spine and visualized portions of the shoulders. [employer] Phone: Virgilio, Mhpn Incoming Radiant Results From [employer])/Progression - 05/12/2021 2:48 PM EDT EXAMINATION: TWO [...] patient. No evidence of acute cardiopulmonary process. [employer] Phone: [employer] Phone: Cardiovascular Lab Reporton 08-21-2020 Cardiovascular Lab Report [facility] Patient Name: [facility] L MR #: [id number] Department of Physician: Jose Maria Keyes M.D. Division of Service Date: 08/20/2020 Cardiology Birthdate: 1940 Adult Cardiovascular Room #: [facility] [address] [place] [address] Cardiovascular Laboratory Report INDICATION: The patient is [...] signed informed consent. She was brought to r and d lab technician in a fasting state. The procedure was performed under conscious sedation. A transesophageal echocardiogram was performed by Dr. Marisol Khoury at baseline. Please refer to his dictation for details. The appendage measured a maximum of 16 mm in terms of ostial width. Using ultrasound guidance and micropuncture technique, access was obtained in the right common femoral vein and a 6-Mauritanian x 11 cm sheath was placed preclosure where the 6-Mauritanian ProGlide device was performed followed by advancement [...] was exchanged over that wire to the 14-Mauritanian Watchman access sheath, which was advanced to the left atrial cavity with no issues. The 6-Mauritanian angled pigtail catheter was advanced over the [...] Trans: (more content not included)... Normal The [facility] TYPE AND CROSSMATCHon 2019 ABO INTERPRETATION A Normal [facility] Comment on above: Performed By: #### [id number] #### [facility] [address] [place] [address], [facility] RH INTERPRETATION Positive Normal The [facility] Comment on above: Performed By: #### [id number] #### [facility] [address] [place] [address], [place] Vital Signs Date Time Vital Sign Value Performing Clinician Facility 05-01-2024 10: Body height 149.86 cm MD Mateus Perry Work Phone: [facility] 05-01-2024 10: Body mass index (BMI) [Ratio] 30.2 kg/m2 MD Mateus Perry Work Phone: [facility] 05-01-2024 10:18 Body temperature 97.8 [degF] MD Mateus Perry Work Phone: [facility] 05-01-2024 10:18-0400 Body weight 68.03 kg MD Mateus Perry Work Phone: [facility] 05-01-2024 10:18-0400 Diastolic blood pressure 72 mm[Hg] MD Mateus Perry Work Phone: [facility] 05-01-2024 10:18-0400 Heart rate 80 /min MD Mateus Perry Work Phone: [facility] 05-01-2024 10:18-0400 Respiratory rate 16 /min MD Mateus Perry Work Phone: [facility] 05-01-2024 10:18-0400 SaO2% (BldA) [Mass fraction] 98 % MD Mateus Perry Work Phone: [facility] 05-01-2024 10:18-0400 Systolic blood pressure 118 mm[Hg] MD Mateus Perry Work Phone: [facility] 04-24-2024 11:13-0400 Body height 149.86 cm MD Mateus Perry Work Phone: [facility] 04-24-2024 11:13-0400 Body mass index (BMI) [Ratio] 36.3 kg/m2 MD Mateus Perry Work Phone: [facility] 04-24-2024 11:13-0400 Body weight 81.64 kg MD Mateus Prery Work Phone: [facility] 04-24-2024 11:06-0400 Body temperature 98.8 [degF] MD Mateus Perry Work Phone: [facility] 04-24-2024 11:06-0400 Diastolic blood pressure 75 mm[Hg] MD Mateus Perry Work Phone: [facility] 04-24-2024 11:06-0400 Heart rate 97 /min MD Mateus Perry Work Phone: [facility] 04-24-2024 11:06-0400 Respiratory rate 20 /min MD Mateus Perry Work Phone: [facility] 04-24-2024 11:06-0400 Systolic blood pressure 118 mm[Hg] MD Mateus Perry Work Phone: [facility] 04-10-2024 10:30-0400 Body height 149.86 cm MD Mateus Perry Work Phone: [facility] 04-10-2024 10:30-0400 Body mass index (BMI) [Ratio] 36.3 kg/m2 MD Mateus Perry Work Phone: [facility] 04-10-2024 10:30-0400 Body weight 81.64 kg MD Mateus Perry Work Phone: [facility] 03-26-2024 09:51-0400 Body height 149.86 cm MD Mateus Perry Work Phone: [facility] 03-26-2024 09:51-0400 Body mass index (BMI) [Ratio] 36.3 kg/m2 MD Mateus Perry Work Phone: [facility] 03-26-2024 09:51-0400 Body weight 81.64 kg MD Mateus Perry Work Phone: [facility] 03-26-2024 09:36-0400 Body temperature 97.3 [degF] MD Mateus Perry Work Phone: [facility] 03-26-2024 09:36-0400 Diastolic blood pressure 61 mm[Hg] MD Mateus Perry Work Phone: [facility] 03-26-2024 09:36-0400 Heart rate 86 /min MD Mateus Perry Work Phone: [facility] 03-26-2024 09:36-0400 Respiratory rate 18 /min MD Mateus Perry Work Phone: [facility] 03-26-2024 09:36-0400 Systolic blood pressure 128 mm[Hg] MD Mateus Perry Work Phone: [facility] 06-20-2023 15:29-0400 Body height 154.9 cm Winnie Ramirez PA-C Work Phone: [facility] 06-20-2023 15:29-0400 Body temperature 97.39 [degF] Winnie Ramirez PA-C Work Phone: [facility] 06-20-2023 15:29-0400 Body weight 84.64 kg Winnie Ramirez PA-C Work Phone: [facility] 06-20-2023 15:29-0400 Diastolic blood pressure 55 mm[Hg] Winnie Ramirez PA-C Work Phone: [facility] 06-20-2023 15:29-0400 Heart rate 72 /min Winnie Ramirez PA-C Work Phone: [facility] 06-20-2023 15:29-0400 Respiratory rate 16 /min Winnie Ramirez PA-C Work Phone: [facility] 06-20-2023 15:29-0400 SaO2% (BldA) [Mass fraction] 96 % Winnie Ramirez PA-C Work Phone: [facility] 06-20-2023 15:29-0400 Systolic blood pressure 138 mm[Hg] Winnie Ramirez PA-C Work Phone: [facility] 06-01-2023 08:45-0400 Body height 154.94 cm Christiano Gonzales Other [employer] Other 06-01-2023 08:45-0400 Body mass index (BMI) [Ratio] 34.57 kg/m2 Christiano Gonzales Other [employer] Other 06-01-2023 08:45-0400 Body temperature 97.8 [degF] Christiano Gonzales Other [employer] Other 06-01-2023 08:45-0400 Body weight 83.01 kg Christiano Marrerogarrick Other [employer] Other 06-01-2023 08:45-0400 Diastolic blood pressure 72 mm[Hg] Christiano Janet Other [employer] Other 06-01-2023 08:45-0400 SaO2% (BldA) [Mass fraction] 93 % Christiano Marrerogarrick Other [employer] Other 06-01-2023 08:45-0400 Systolic blood pressure 130 mm[Hg] Christiano Janet Other [employer] Other 03-09-2023 08:45-0400 Body height 154.94 cm Millie Storm Other [employer] Other 03-09-2023 08:45-0400 Body mass index (BMI) [Ratio] 34.57 kg/m2 Millie Storm Other [employer] Other 03-09-2023 08:45-0400 Body temperature 96.8 [degF] Millie Storm Other [employer] Other 03-09-2023 08:45-0400 Body weight 83.01 kg Millie Emeterio Other [employer] Other 03-09-2023 08:45-0400 Diastolic blood pressure 56 mm[Hg] Millie Storm Other [employer] Other 03-09-2023 08:45-0400 SaO2% (BldA) [Mass fraction] 97 % Millie Storm Other [employer] Other 03-09-2023 08:45-0400 Systolic blood pressure 118 mm[Hg] Millie Storm Other [employer] Other 02-14-2023 10:19-0400 Body height 154.9 cm Wallace Stone MD Work Phone: [facility] 02-14-2023 10:19-0400 Body temperature 97.39 [degF] Wallace Stone MD Work Phone: [facility] 02-14-2023 10:19-0400 Body weight 84.46 kg Wallace Stone MD Work Phone: [facility] 02-14-2023 10:19-0400 Diastolic blood pressure 90 mm[Hg] Wallace Stone MD Work Phone: [facility] 02-14-2023 10:19-0400 Heart rate 102 /min Wallace Stone MD Work Phone: [facility] 02-14-2023 10:19-0400 Respiratory rate 16 /min Wallace Stone MD Work Phone: [facility] 02-14-2023 10:19-0400 SaO2% (BldA) [Mass fraction] 95 % Wallace Stone MD Work Phone: [facility] 02-14-2023 10:19-0400 Systolic blood pressure 151 mm[Hg] Wallace Stone MD Work Phone: [facility] 12-07-2022 14:00-0400 Body height 154.94 cm Millie Storm Other [employer] Other 12-07-2022 14:00-0400 Body mass index (BMI) [Ratio] 35.71 kg/m2 Millie Storm Other [employer] Other 12-07-2022 14:00-0400 Body temperature 97.6 [degF] Millie Storm Other [employer] Other 12-07-2022 14:00-0400 Body weight 85.73 kg Millie Storm Other [employer] Other 12-07-2022 14:00-0400 Diastolic blood pressure 68 mm[Hg] Millie Storm Other [employer] Other 12-07-2022 14:00-0400 SaO2% (BldA) [Mass fraction] 93 % Millie Storm Other [employer] Other 12-07-2022 14:00-0400 Systolic blood pressure 116 mm[Hg] Millie Storm Other [employer] Other 11-29-2022 11:53-0400 Diastolic blood pressure 54 mm[Hg] MD Mateus Perry Work Phone: [facility] 11-29-2022 11:53-0400 Heart rate 67 /min MD Mateus Perry Work Phone: [facility] 11-29-2022 11:53-0400 Respiratory rate 16 /min MD Mateus Perry Work Phone: [facility] 11-29-2022 11:53-0400 SaO2% (BldA) [Mass fraction] 94 % MD Mateus Perry Work Phone: [facility] 11-29-2022 11:53-0400 Systolic blood pressure 141 mm[Hg] MD Mateus Perry Work Phone: [facility] 11-29-2022 09:13-0400 Body height 154.94 cm MD Mateus Perry Work Phone: [facility] 11-29-2022 09:13-0400 Body weight 81.64 kg MD Mateus Perry Work Phone: [facility] 11-23-2022 11:00-0400 Body height 154.94 cm Christiano Janet Other [employer] [facility] [employer] Other 11-23-2022 11:00-0400 Body temperature 97.8 [degF] Christiano Gonzales Other [facility] [employer] Other 11-23-2022 11:00-0400 Diastolic blood pressure 62 mm[Hg] Christiano Gonzales Other [employer] Other 11-23-2022 11:00-0400 SaO2% (BldA) [Mass fraction] 96 % Christiano Gonzales Other [employer] Other 11-23-2022 11:00-0400 Systolic blood pressure 110 mm[Hg] Christiano Gonzales Other [employer] Other 11-09-2022 13:44-0500 Body height 154.9 cm Wallace Stone MD Work Phone: [facility] 11-09-2022 13:44-0500 Body temperature 97.11 [degF] Wallace Stone MD Work Phone: [facility] 11-09-2022 13:44-0500 Body weight 84.73 kg Wallace Stone MD Work Phone: [facility] 11-09-2022 13:44-0500 Diastolic blood pressure 72 mm[Hg] Wallace Stone MD Work Phone: [facility] 11-09-2022 13:44-0500 Heart rate 66 /min Wallace Stone MD Work Phone: [facility] 11-09-2022 13:44-0500 Respiratory rate 18 /min Wallace Stone MD Work Phone: [facility] 11-09-2022 13:44-0500 SaO2% (BldA) [Mass fraction] 100 % Wallace Stone MD Work Phone: [facility] 11-09-2022 13:44-0500 Systolic blood pressure 142 mm[Hg] Wallace Stone MD Work Phone: [facility] 09-22-2022 11:24-0500 Body height 154.9 cm Wallace Stone MD Work Phone: [facility] 09-22-2022 11:24-0500 Body temperature 97.81 [degF] Wallace Stone MD Work Phone: [facility] 09-22-2022 11:24-0500 Body weight 84.82 kg Wallace Stone MD Work Phone: [facility] 09-22-2022 11:24-0500 Diastolic blood pressure 64 mm[Hg] Wallace Stone MD Work Phone: [facility] 09-22-2022 11:24-0500 Heart rate 70 /min Wallace Stone MD Work Phone: [facility] 09-22-2022 11:24-0500 Respiratory rate 16 /min Wallace Stone MD Work Phone: [facility] 09-22-2022 11:24-0500 SaO2% (BldA) [Mass fraction] 94 % Wallace Stone MD Work Phone: [facility] 09-22-2022 11:24-0500 Systolic blood pressure 137 mm[Hg] Wallace Stone MD Work Phone: [facility] 09-09-2022 15:06-0500 Blood Pressure Location [facility] [place] 09-09-2022 15:06-0500 Diastolic blood pressure 68 mm[Hg] Iliana GAGNON [facility] [place] 09-09-2022 15:06-0500 Heart rate 68 /min Iliana GAGNON [facility] [place] 09-09-2022 15:06-0500 Respiratory rate 16 /min Iliana GAGNON [facility] [place] 09-09-2022 15:06-0500 Systolic blood pressure 130 mm[Hg] Iliana GAGNON [facility] Surgery [place] 06-28-2022 12:00-0400 SaO2% (BldA) [Mass fraction] 95 % Emma Plunkett MD Work Phone: [facility] 06-28-2022 11:50-0400 Body temperature 97.3 [degF] Emma Plunkett MD Work Phone: [facility] 06-28-2022 11:50-0400 Diastolic blood pressure 50 mm[Hg] Emma Plunkett MD Work Phone: [facility] 06-28-2022 11:50-0400 Heart rate 69 /min Emma Plunkett MD Work Phone: [facility] 06-28-2022 11:50-0400 Respiratory rate 16 /min Emma Plunkett MD Work Phone: [facility] 06-28-2022 11:50-0400 Systolic blood pressure 115 mm[Hg] Emma Plunkett MD Work Phone: [facility] 06-28-2022 07:36-0400 Body height 154.9 cm Emma Plunkett MD Work Phone: [facility] 06-28-2022 07:36-0400 Body mass index (BMI) [Ratio] 34.58 kg/m2 Emma Plunkett MD Work Phone: [facility] 06-28-2022 07:36-0400 Body weight 83.01 kg Emma Plunkett MD Work Phone: [facility] 12-13-2021 15:45-0400 Body temperature 97 [degF] Emma Plunkett MD Work Phone: [facility] 12-13-2021 15:45-0400 Diastolic blood pressure 96 mm[Hg] Emma Plunkett MD Work Phone: [facility] 12-13-2021 15:45-0400 Heart rate 65 /min Emma Plunkett MD Work Phone: [facility] 12-13-2021 15:45-0400 Respiratory rate 14 /min Emma Plunkett MD Work Phone: [facility] 12-13-2021 15:45-0400 SaO2% (BldA) [Mass fraction] 94 % Emma Plunkett MD Work Phone: [facility] 12-13-2021 15:45-0400 Systolic blood pressure 113 mm[Hg] Emma Plunkett MD Work Phone: [facility] 12-13-2021 09:46-0400 Body height 154.9 cm Emma Plunkett MD Work Phone: [facility] 12-13-2021 09:46-0400 Body mass index (BMI) [Ratio] 36.09 kg/m2 Emma Plunkett MD Work Phone: [facility] 12-13-2021 09:46-0400 Body weight 86.64 kg Emma Plunkett MD Work Phone: [facility] 12-06-2021 14:46-0400 Body height 154.[address] 12-06-2021 14:46-0400 Body mass index (BMI) [Ratio] 36.09 kg/m2 [facility] [employer] 12-06-2021 14:46-0400 Body temperature 96.4 [degF] [address] 12-06-2021 14:46-0400 Body weight 86.[address] 12-06-2021 14:46-0400 Diastolic blood pressure 67 mm[Hg] [address] [employer] 12-06-2021 14:46-0400 Heart rate 62 /min [address] [employer] 12-06-2021 14:46-0400 Respiratory rate 20 /min [address] [employer] 12-06-2021 14:46-0400 SaO2% (BldA) [Mass fraction] 97 % [address] [employer] 12-06-2021 14:46-0400 Systolic blood pressure 153 mm[Hg] [address] [employer] 06-15-2021 10:14-0400 Body temperature 97.81 [degF] Kin Abarca MD Work Phone: [employer] Work Phone: 06-15-2021 10:14-0400 Diastolic blood pressure 58 mm[Hg] Kin Abarca MD Work Phone: [employer] Work Phone: 06-15-2021 10:14-0400 Heart rate 61 /min Kin Abarca MD Work Phone: [employer] Work Phone: 06-15-2021 10:14-0400 Respiratory rate 14 /min Kin Abarca MD Work Phone: [employer] Work Phone: 06-15-2021 10:14-0400 SaO2% (BldA) [Mass fraction] 96 % Kin Abarca MD Work Phone: [employer] Work Phone: 06-15-2021 10:14-0400 Systolic blood pressure 113 mm[Hg] Kin Abarca MD Work Phone: [employer] Work Phone: 06-15-2021 08:24-0400 Body height 154.9 cm Kin Abarca MD Work Phone: [employer] Work Phone: 06-15-2021 08:24-0400 Body mass index (BMI) [Ratio] 34.96 kg/m2 Kin Abarca MD Work Phone: [employer] Work Phone: 06-15-2021 08:24-0400 Body weight 83.92 kg Kin Abarca MD Work Phone: [employer] Phone: 05-12-2021 12:53-0400 Body height 154.9 cm [facility] 1 [employer] Phone: 05-12-2021 12:53-0400 Body mass index (BMI) [Ratio] 35.52 kg/m2 [facility] [employer] Work Phone: 05-12-2021 12:53-0400 Body temperature 96.8 [degF] [facility] 1 [employer] Phone: 05-12-2021 12:53-0400 Body weight 85.28 kg [facility] 1 [employer] Phone: 05-12-2021 12:53-0400 Diastolic blood pressure 66 mm[Hg] [facility] 1 [employer] Phone: 05-12-2021 12:53-0400 Heart rate 57 /min [facility]z 1 [employer] Phone: 05-12-2021 12:53-0400 Respiratory rate 18 /min [facility]z 1 [employer] Phone: 05-12-2021 12:53-0400 SaO2% (BldA) [Mass fraction] 96 % [facility] 1 [employer] Phone: 05-12-2021 12:53-0400 Systolic blood pressure 150 mm[Hg] Stvz 1 [employer] Work Phone: Encounters Encounter Date Encounter Type Care Provider Facility Start: 05-01-2024 End: 05-01-2024 ambulatory MD Mateus Perry Work Phone: [facility] Work Phone: Start: 05-01-2024 End: 05-01-2024 Patient encounter procedure MD Mateus Perry Work Phone: [facility] Vascular Surgery Work Phone: Start: 04-24-2024 End: 04-24-2024 ambulatory MD Mateus Perry Work Phone: [facility] Work Phone: Start: 04-24-2024 End: 04-24-2024 Discharged Recurring MD Mateus Perry Work Phone: [facility] Work Phone: Start: 04-09-2024 End: 04-09-2024 Patient encounter procedure MD Mateus Perry Work Phone: [facility]-Ultrasound [facility] [place] Work Phone: Start: 04-09-2024 End: 04-09-2024 ambulatory MD Mateus Perry Work Phone: [facility] Work Phone: Start: 03-26-2024 Registered Recurring MD Yvonne Perry Work Phone: [facility]Wound [facility] Work Phone: Start: 06-20-2023 End: 06-20-2023 ambulatory WINNIE GUZMÁN Facility:[facility] Start: 06-20-2023 End: 06-20-2023 ambulatory Winnie Guzmán PA-C Work Phone: Hematology/Oncology Comment on above: 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, estrogen receptor positive (HCC) (Primary Dx); Stage 3a chronic kidney disease (HCC) Start: 06-20-2023 End: 06-20-2023 Patient encounter procedure Winnie Guzmán PA-C Work Phone: [facility] Start: 06-01-2023 End: 06-01-2023 ambulatory Christiano Gonzales Other [employer] Other Start: 06-01-2023 Office outpatient vi sit 15 minutes Christiano Gonzales [facility] Vascular Surgery Start: 04-06-2023 End: 04-07-2023 ambulatory MATEUS PERRY [facility] Start: 03-20-2023 End: 03-20-2023 ambulatory [facility] Start: 03-09-2023 End: 03-09-2023 ambulatory Millie Storm Other [employer] Other Start: 03-09-2023 Patient encounter procedure Millie Storm [facility] Vascular Surgery Start: 03-06-2023 End: 03-06-2023 ambulatory EMMA GARZA V [facility] Start: 02-14-2023 End: 02-14-2023 ambulatory WALLACE STONE Facility:[facility] Start: 02-14-2023 End: 02-14-2023 ambulatory Wallace Stone MD Work Phone: Hematology/Oncology Comment on above: 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, estrogen receptor positive (HCC) (Primary Dx); Rash; Other eczema; Stage 3a chronic kidney disease (HCC) Start: 02-14-2023 End: 02-14-2023 Patient encounter procedure Wallace Stone MD Work Phone: [facility] Start: 01-19-2023 End: 01-19-[address] MATEUS PERRY . Facility: Start: 12-08-2022 End: 12-08-2022 ambulatory Millie Storm Other [employer] Other Start: 12-08-2022 Telephone encounter Millie Dc Vascular Surgery Start: 12-07-2022 End: 12-07-2022 ambulatory Millie Storm Other [employer] Other Start: 12-07-2022 Patient encounter procedure Millie Storm [facility] Vascular Surgery Start: 11-29-2022 End: 11-29-2022 Admission to same day surgery center MD Mateus Perry Work Phone: [facility]-Interventional Radiology Work Phone: Start: 11-29-2022 End: 11-29-2022 ambulatory MD Mateus Perry Work Phone: [facility] Work Phone: Start: 11-24-2022 End: 11-25-2022 ambulatory [facility] Start: 11-24-2022 End: 11-24-2022 Subsequent hospital visit by physician Mateus Perry MD Work Phone: [facility] Start: 11-23-2022 End: 11-23-2022 ambulatory Christiano Gonzales Other [employer] Other Start: 11-23-2022 Office outpatient ne w 60 minutes Christiano Gonzales [facility] Vascular Surgery Start: 11-22-2022 End: 11-23-2022 ambulatory Iliana GAGNON Facility: [facility] Start: 11-16-2022 End: 11-16-[address] MATEUS PERRY . Facility: Start: 11-09-2022 End: 11-09-2022 ambulatory Wallace Stone MD Work Phone: Hematology/Oncology Comment on above: 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, estrogen receptor positive (HCC) (Primary Dx); Claudication in peripheral vascular disease (HCC) Start: 11-09-2022 End: 11-09-2022 Patient encounter procedure Wallace Stone MD Work Phone: [place] Start: 11-09-2022 Telephone encounter Wallace carolina MD Work Phone: [facility] Comment on above: Referral Information (Vascular Consult) Start: 11-08-2022 End: 11-09-2022 ambulatory Iliana GAGNON Facility:[facility] Start: 11-08-2022 End: 11-08-2022 Patient encounter procedure Iliana R ANDREEAL General Surgery Nill/Said [place] Start: 11-04-2022 End: 11-05-2022 ambulatory Iliana R CHELSI Facility:[facility] Start: 11-04-2022 End: 11-04-2022 Patient encounter procedure Iliana R CHELSI General Surgery Nill/Said [place] Start: 11-02-2022 End: 11-03-[address] MATEUS PERRY . Facility: Start: 10-25-2022 End: 10-26-2022 ambulatory Iliana GAGNON Facility:[facility] Start: 10-25-2022 End: 10-25-2022 Patient encounter procedure Iliana R NILL General Surgery Nill/Said [place] Start: 10-19-2022 End: 10-20-[address] ILIANA GAGNON . Facility: Start: 10-15-[address] ILIANA GAGNON . Facil ity:[facility] Start: 10-12-2022 Encounter for preprocedural laboratory examination DR ILIANA GAGNON . [facility] Start: 10-11-2022 End: 10-12-[address] ILIANA GAGNON . Facility:[facility] Start: 10-11-2022 End: 10-12-2022 Encounter for preprocedural laboratory examination DR ILIANA GAGNON . Facility:[facility] Start: 09-30-2022 End: 10-01-[address] MATEUS PERRY . Facility:[facility] Start: 09-22-2022 Telephone encounter Lars Wilkerson RN Work Phone: Hematology/Oncology Comment on above: Care Coordination (S urgery update) Start: 09-22-2022 End: 09-22-2022 ambulatory WALLACE STONE Facility:[facility] Start: 09-22-2022 End: 09-22-2022 ambulatory Wallace Stone MD Work Phone: Hematology/Oncology Comment on above: 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, estrogen receptor positive (HCC) (Primary Dx) Start: 09-22-2022 End: 09-22-2022 Patient encounter procedure Wallace Stone MD Work Phone: [place] Comment on above: Malignant neoplasm o f [...] Iliana GAGNON General Surgery Nill/Said [facility] Start: 09-05-[address] MATEUS PERRY . Facili ty:H1 Start: 08-23-2022 End: 08-23-[address] MATEUS PERRY . Facility:[facility] Start: 08-19-2022 ambulatory Iliana GAGNON Facility : [place] Start: 08-19-2022 End: 08-19-[address] MATEUS [...] Work Phone: [facility] Comment on above: Vaginal dysplasia Start: 06-22-2022 End: 06-23-2022 ambulatory [facility] Facility:[facility] Start: 05-04-2022 ambulatory [facility] Facility :[facility] Start: 04-12-2022 End: 04-13-2022 ambulatory [facility] Facility:[facility] Start: 03-17-2022 End: 03-17-[address] MATEUS PERRY . Facility:[facility] Start: 03-16-2022 End: 03-16-[address] MATEUS PERRY . Facility:[facility] Start: 03-15-2022 End: 03-16-2022 ambulatory [facility] Facility:[facility]1 Start: 02-15-2022 End: 02-16-2022 ambulatory [facility] Facility:[facility]1 Start: 02-09-2022 End: 02-10-2022 ambulatory [facility] Facility: Start: 12-13-2021 End: 12-13-2021 Subsequent hospital visit by physician Emma Garza MD Work Phone: [facility] Comment on above: Post-operative state (Primary Dx) Start: 12-06-2021 End: 12-08-2021 Subsequent hospital visit by physician Jesse Hendrix Xr [facility] Comment on above: Arrived Start: 12-06-2021 End: 12-10-2021 Patient encounter status [facility] 2 [facility] Pre-Admit Testing Start: 12-06-2021 End: 12-10-2021 Subsequent hospital visit by physician Pablo Hendrix 2 [facility] Pre-Admit Testing Comment on above: Pre-op chest exam Start: 06-15-2021 End: 06-15-2021 Subsequent hospital visit by physician Kin Abarca MD Work Phone: [facility] Start: 05-12-2021 End: 05-14-2021 Subsequent hospital visit by physician Jesse Hendrix Xr [facility] Comment on above: Arrived Start: 05-12-2021 End: 05-16-2021 Patient encounter status [facility] 1 [facility] Pre-Admit Testing Start: 05-12-2021 End: 05-16-2021 Subsequent hospital visit by physician Pablo Hendrix Rm 1 [facility] Pre-Admit Testing Comment on above: Pre-op chest exam Procedures Date Procedure Procedure Detail Performing Clinician Start: 04-09-2024 Ankle brachial press ure index MD Mateus Perry Work Phone: Start: 04-09-2024 Duplex scan of lower limb veins MD Mateus Perry Work Phone: Start: 11-29-2022 Venography MD Mateus Perry Work [...] REFLEX TO MG FOR LOW K Latonia Burks PA-dscovered Work Phone: Start: 05-12-2021 Blood count complete auto&auto difrntl wbc Latonia Burks PA-dscovered Work Phone: Start: 05-12-2021 Radiologic exam ches t 2 views Latonia Burks [employer] Work Phone: Start: 05-12-2021 Ecg routine ecg w/le ast 12 lds i&r only Latonia Burks PA-dscovered Work Phone: Start: 08-20-2020 Antibody screen Comment on above: Performed By: #### [id number] #### [facility] [address] Start: 01-16-2017 History of placement of stent for coronary artery disease S/P coronary artery stent placement Wallace Stone MD Work Phone: Appendectomy Iliana GAGNON Colposcopy Iliana DORANBerna Cryosurgery of lesio n of cervix Iliana DORANBerna Insertion of arteria l stent Iliana GAGNON Insertion of stent i n femoral vein Iliana GAGNON Repair of aneurysm Iliana BROWN Total hysterectomy v ia vaginal approach Iliana DORANBerna Ultrasonography guid ed biopsy of right breast Iliana DORANBerna Urinary bladder reconstruction Iliana DORANBerna Plan of Treatment Date Care Activity Detail Author Start: 06-20-2024 Hemoglobin/Hematocrit Hemoglobin/Hem [facility] Start: 06-20-2024 Serum Creatinine Serum Creatinine [facility] Start: 02-15-2024 HEMOGLOBIN/HEMATOCRIT HEMOGLOBIN/HEM [facility] Start: 02-15-2024 SERUM CREATININE SERUM CREATININE [facility] Start: 06-16-2023 End: 08-16-2023 CBC W Auto Differential panel - Blood CBC + DIFF Lab Routine 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 Work Phone: Comment on above: Expected: 02/09/2023 (Approximate), Expires: 04/11/2023 Start: 12-13-2022 Potassium monitoring Potassium monit [facility] Start: 12-06-2022 Creatinine measurement Creatinine mo [facility] Start: 12-06-2022 Potassium monitoring Potassium monit [facility] Start: 11-29-2022 End: 11-29-2022 [facility] Start: 09-11-2022 ADVANCE DIRECTIVE DISCUSSION ADVANCE DIRECTIVE DISCUSSION [facility] Start: 09-11-2022 DEPRESSION ASSESSMENT DEPRESSION ASS ESSMENT [facility] Start: 07-27-2022 End: 07-27-2022 Patient encounter procedure 07/27/2022 Office Visit Gynecologic Oncology Emma Garza MD [address] [place], [place] [id number] [facility]nec[facility] Start: 06-28-2022 End: 06-28-2022 VULVA VAGINAL CERVIX LESION EXCISION LASER VULVA VAGINAL CERVIX LESION EXCISION LASER Vaginal dysplasia 06/28/2022 9:04 AM EDT [facility] Start: 06-15-2022 Creatinine measurement Creatinine mo [facility] Work Phone: Start: 06-15-2022 Potassium monitoring Potassium monit [facility] Work Phone: Start: 05-12-2022 Creatinine measurement Creatinine mo [facility] Work Phone: Start: 05-12-2022 Influenza vaccination INFLUENZA (#1) [facility] Start: 05-12-2022 Potassium monitoring Potassium monit [facility] Work Phone: Start: 04-11-2022 Influenza vaccination Flu vaccine (# 1) [facility] Start: 01-14-2022 End: 01-14-2022 Patient encounter procedure 01/14/2022 Office Visit Gynecologic Oncology Latonia Burks PA-C [address] [place], [place] [id number] [facility] Start: 12-13-2021 End: 12-13-2021 VAGINECTOMY [facility] Start: 12-13-2021 End: 12-13-2021 Admission to same day surgery center [facility] Comment on above: VAGINECTOMY, CYSTOSC OPY CYSTOSCOPY, VAGINECT PATY Start: 12-13-2021 Subsequent hospital visit by physician 12/13/2021 Hospital Encounter IP Unit Emma Garza MD [address] [facility] [address] [place] [address] [facility] Start: 12-13-2021 End: 12-13-2021 Vaginectomy complete removal vaginal wall VAGINECTOMY VAGINAL DYSPLASIA, RULE OUT CANCER 12/13/2021 10:20 AM EDT [facility] Start: 10-31-2021 Annual Wellness Visi t (AWV) Annual Wellness Visit (AWV) [facility] Start: 10-15-2021 COVID-19 VACCINE (4 - Booster for Moderna series) COVID-19 VACCINE (4 - Booster for Moderna series) [facility] Start: 07-01-2021 End: 07-01-2021 Patient encounter procedure 07/01/2021 Office Visit Gynecologic Oncology Kin Abarca MD [address] [facility] [address] [place] [address] [phone] [facility] Start: 05-12-2021 Influenza vaccination Flu vaccine (# 1) [facility] Work Phone: Start: 04-05-2021 COVID-19 Vaccine (3 - Booster for Moderna series) COVID-19 Vaccine (3 - Booster for Moderna series) [facility] Start: 10-29-2020 Hemoglobin A1c/Hemoglobin.total in Blood HBA1C [facility] Start: 01-19-2018 Pneumococcal Vaccine : 65+ (2 - PCV) Pneumococcal Vaccine: 65+ (2 - PCV) [facility] Start: 01-19-2018 PNEUMOCOCCAL: 65+ (2 - PCV) PNEUMOCOCCAL: 65+ (2 - PCV) [facility] Start: 2007 BONE DENSITY BONE DENSITY [facility] Start: 2007 Bone Density Screening Bone Density Screening [facility] Start: 2007 Pneumococcal 65+ yea rs Vaccine (1 - PCV) Pneumococcal 65+ years Vaccine (1 - PCV) [facility] Start: 2007 Pneumococcal 65+ yea rs Vaccine (1 of 1 - PPSV23) Pneumococcal 65+ years Vaccine (1 of 1 - PPSV23) [facility] Start: 2002 Hepatitis B Vaccine (1 of 3 - Risk 3-dose series) Hepatitis B Vaccine (1 of 3 - Risk 3-dose series) [facility] Start: 1997 Screening for osteoporosis DEXA (modify frequency per FRAX score) [facility] Start: 1992 Shingles Vaccine (1 of 2) Shingles Vaccine (1 of 2) [facility] Start: 1992 SHINGRIX VACCINE (1 of 2) SHINGRIX VACCINE (1 of 2) [facility] Start: 1961 DTaP/Tdap/Td vaccine (1 - Tdap) DTaP/Tdap/Td vaccine (1 - Tdap) [facility] Start: 1961 Urine microalbumin profile [facility] Start: 1960 ANNUAL PCP TEAM PROGRAM CLINICIAN USAMA DISEASE VISIT ANNUAL PCP TEAM CHRONIC DISEASE VISIT [facility] Start: 1960 BP CONTROLLED (<130/80) BP CON TROLLED (<130/80) [facility] Start: 1960 Hepatitis B surface antibody level LDL CHOLESTEROL [facility] Start: 1960 Hepatitis C screening Hepatitis C [facility] Start: 1954 Depression Screen Depression Screen [facility] Start: 1952 3 comp foot exam completed DIABETIC FOOT EXAM [facility] Start: 1952 Hepatitis B screening URINE ALBUMIN:CREATININE RATIO [facility] Start: 1952 Hepatitis C antibody , confirmatory test DILATED RETINAL EXAM [facility] Start: 1952 Lipid panel [facility] Start: 1942 Hepatitis C screening Hepatitis C [facility] EKG 12 Lead EKG 12 Lead ECG STAT 06/28/2022 7:29 AM EDT [facility] Phone: End: 12-13-2021 INITIATE PACU OXYGEN THERAPY PROTOCOL Initiate PACU Oxygen Therapy Protocol Respiratory Care Routine Continuous until discontinued starting 12/13/2021 [employer] Phone: Comment on above: Continuous until dis continued starting 12/13/2021 End: 06-28-2022 INITIATE PACU OXYGEN THERAPY PROTOCOL Initiate PACU Oxygen Therapy Protocol Respiratory Care Routine Continuous until discontinued starting 06/28/2022 [facility] Phone: Comment on above: Continuous until dis continued starting 06/28/2022 End: 07-19-2024 MAGNO DIAGNOSTIC BILATERAL [facility] Radiology Routine 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, estrogen receptor positive (HCC) 1 Occurrences starting 06/20/2023 until 07/19/2024 [facility] Work Phone: Comment on above: 1 Occurrences starti ng 06/20/2023 until 07/19/2024 Patient referral [facility] Work Phone: Spirometry panel Incentive viktoriya metry Respiratory Care Routine Every 2hr while awake until discontinued starting 12/13/2021 [employer] Phone: Comment on above: Every 2hr while awak e until discontinued starting 12/13/2021 Surgical Pathology Surgical Path ology Lab Routine Release Upon Ordering for 1 Occurrences starting 06/15/2021 [employer] Phone: Comment on above: Release Upon Orderin g for 1 Occurrences starting 06/15/2021 Surgical Pathology Surgical Path ology Lab Routine Release Upon Ordering for 1 Occurrences starting 12/13/2021 [employer] Phone: Comment on above: Release Upon Orderin g for 1 Occurrences starting 12/13/2021 Surgical Pathology Surgical Path ology Lab Routine Vaginal dysplasia Release Upon Ordering for 1 Occurrences starting 06/28/2022 [facility] Phone: Comment on above: Release Upon Orderin g for 1 Occurrences starting 06/28/2022 End: 06-28-2022 SURGICAL PATHOLOGY REPORT SURGICAL PATHOLOGY REPORT Lab Routine Once for 1 Occurrences starting 06/28/2022 until 06/28/2022 [employer] Work Phone: Comment on above: Once for 1 Occurrenc es starting 06/28/2022 until 06/28/2022 End: 11-24-2022 SURGICAL PATHOLOGY REPORT SURGICAL PATHOLOGY REPORT Lab Routine Once for 1 Occurrences starting 11/24/2022 until 11/24/2022 [employer] Work Phone: Comment on above: Once for 1 Occurrenc es starting 11/24/2022 until 11/24/2022 [facility] Immunizations Immunization Date Immunization Notes Care Provider [facility] 07-12-2022 influenza virus vacc ine, unspecified formulation Iliana GAGNON [facility] [place] 08-20-2021 SARS-CoV-2 (COVID-19 ) mRNA-9523 vaccine Iliana CHELSI [facility] 07-01-2021 influenza (HD-IIV4) vaccine, age 65+ yr, high dose, quadrivalent, PF (FLUZONE HIGH-DOSE) Wallace Stone MD Work Phone: [facility] 07-01-2021 influenza virus vacc ine, unspecified formulation Winnie Guzmán PA-C Work Phone: [facility] 11-06-2020 COVID-19, Moderna, P F, 100mcg/0.5mL Stv Xr [facility] 10-09-2020 COVID-19, Moderna, P F, 100mcg/0.5mL Stv Xr [facility] Work Phone: 06-10-2020 Seasonal trivalent influenza vaccine, adjuvanted, preservative free Wallace Stone MD Work Phone: [facility] 06-07-2017 influenza, high dose seasonal, preservative-free Wallace Stone MD Work Phone: [facility] 01-19-2017 pneumococcal polysaccharide vaccine, 23 valent Wallace Stone MD Work Phone: [facility] 06-29-2015 influenza, high dose seasonal, preservative-free Wallace Stone MD Work Phone: [facility] 06-23-2014 influenza, high dose seasonal, preservative-free Wallace Stone MD Work Phone: [facility] 06-15-2010 pneumococcal polysaccharide vaccine, 23 valent Wallace Stone MD Work Phone: [facility] 06-27-2007 influenza virus vacc ine, whole virus Wallace Stone MD Work Phone: [facility] Payers Date Payer Category Payer Self-pay [id number] 2007 Medicare MEDICARE MEDICAR E A AND B [id number] 2007-Present [phone] [address] [address] [place] [address] Medicare [id number] 2007 Unknown [id number] .[id number] 2007 Unknown [employer] [employer] MEDIC[employer] SUPPLEMENT [id number] 2007-Present [phone] [id number] [place] [address] Indemnity [id number] [id number] 1959 Medicare [id number] [id number].3 .[id number] 1959 Self-pay [id number] 1959 Unknown [id number] 2.16.8 40.1.950130.19 1942 Unknown [id number] 2.16.840.1.272318.3.579.2.593 1942 Unknown [id number] 2.16.840.1.198041.3.579.2.593 1942 Unknown [id number] 2.16.840.1.021983.3.579.2.593 1942 Unknown [id number] 2.16.840.1.653702.3.579.2.593 1942 Unknown [id number] 2.16.840.1.156937.3.579.2.593 1942 Unknown [id number] 2.16.840.1.784795.3.579.2.593 1942 Unknown [id number] 2.16.840.1.386357.3.579.2.593 1942 Unknown [id number] 2.16.840.1.588785.3.579.2.593 1942 Unknown [id number] 2.16.840.1.570217.3.579.2.593 1942 Unknown [id number] 2.16.840.1.441462.3.579.2.593 1942 Unknown [id number] 2.16.840.1.568618.3.579.2.593 1942 Unknown [id number] 2.16.840.1.203396.3.579.2.593 1942 Unknown [id number] 2.16.840.1.911769.3.579.2.593 1942 Unknown [id number] 2.16.840.1.688205.3.579.2.593 1942 Unknown [id number] 2.16.840.1.398534.3.579.2.593 1942 Unknown [id number] 2.16.840.1.354016.3.579.2.593 1942 Unknown [id number] 2.16.840.1.672460.3.579.2.593 1942 Unknown [id number] 2.16.840.1.669700.3.579.2.593 1942 Unknown [id number] 2.16.840.1.558147.3.579.2.593 1942 Unknown [id number] 2.16.840.1.449920.3.579.2.593 1942 Unknown [id number] 2.16.840.1.664976.3.579.2.593 1942 Unknown [id number] 2.16.840.1.385580.3.579.2.593 1942 Unknown [id number] 2.16.840.1.414710.3.579.2.593 1942 Unknown [id number] 2.16.840.1.034636.3.579.2.593 1942 Unknown [id number] 2.16.840.1.179519.3.579.2.593 1942 Unknown [id number] 2.16.840.1.694244.3.579.2.593 1942 Unknown [id number] 2.16.840.1.841342.3.579.2.593 1942 Unknown [id number] 2.16.840.1.742000.3.579.2.727 1942 Unknown [id number] 2.16.840.1.742616.3.579.2.727 1942 Unknown [id number] 2.16.840.1.509268.3.579.2.727 1942 Unknown [id number] 2.16.840.1.979194.3.579.2.727 1942 Unknown [id number] 2.16.840.1.111802.3.579.2.727 1942 Unknown [id number] 2.16.840.1.115378.3.579.2.727 1942 Unknown [id number] 2.16.840.1.448539.3.579.2.727 1942 Unknown [id number] 2.16.840.1.786070.3.579.2.175 1942 Unknown [id number] 2.16.840.1.915424.3.579.2.175 1942 Unknown [id number] 2.16.840.1.253142.3.579.2.175 Medicare Medicare Outpatient [id number] [id number] Unknown [id number] 2.16.840.1.858582.3.579.2.531 Unknown [id number] 2.16.840.1.852462.3.579.2.531 Social History Date Type Detail Facility Start: 05-12-2021 End: 04-24-2024 Tobacco smoking status NYIS Former smoker [employer] Phone: Start: 09-11-1962 End: 06-28-2018 History of tobacco use Current smoker [facility] Start: 09-11-1962 End: 06-28-2018 History of tobacco use Cigarette Smoker [facility] Start: 05-12-2021 End: 09-19-2022 Tobacco use and exposure Never used [facility] Start: 05-12-2021 End: 11-24-2022 Alcohol intake Ex-drinker (finding) [employer] Phone: Start: 1940 Sex Assigned At Not on file [facility] [employer] Phone: Start: 11-26-2021 End: 06-24-2022 Exposure to SARS-CoV-2 (event) Not sure [facility] Start: 06-15-2021 End: 02-14-2023 Cigarettes smoked current (pack per day) - Reported [facility] History of tobacco use Passive smoker ENIO BEVERLY [employer] Work Phone: Tobacco smoking status Never [facility] Start: 02-14-2023 Sex Assigned At Female F [facility] Start: 09-19-2022 End: 02-14-2023 Alcohol intake Current non-drinker of alcohol (finding) [facility] Start: 1940 Sex Assigned At Female F [facility] Medical Equipment Procedure Code Equipment Code [...] 6 X 40 120CM FDA Start: 04-25-2019 Aortogram, abdominal, with bilateral lower extremity runoff IR STENT BLUE 6 X 12 80CM FDA Start: 04-25-2019 Aortogram, abdominal, with bilateral lower extremity runoff IR STENT SMART 6 X 120 120CM FDA Start: 04-25-2019 Aortogram, abdominal, with bilateral lower extremity runoff IR STENT SMART 6 X 40 120CM FDA Start: 04-25-2019 Aortogram, abdominal, with bilateral lower extremity runoff IR STENT BLUE 6 X 12 80CM FDA Start: 04-25-2019 Aortogram, abdominal, with bilateral lower extremity runoff IR STENT SMART 6 X 120 120CM FDA Start: 04-25-2019 Aortogram, abdominal, with bilateral lower extremity runoff IR STENT SMART 6 X 40 120CM FDA Start: 04-25-2019 Aortogram, abdominal, with [...] Facility 09-09-2022 Functional Status N/A [facility] [place] Clinical Notes 05-12-2021 to 04-10-2024 Note Date & Type Note Facility 04-10-2024 Progress note Note Date/Time April 10, 2024 10:30am [facility] [address] [place] [address] Wound Center Provider Note Signed Patient: Harman Mcleod MR#: [id number] : 1940 Acct:[id number] Age/Sex: 83 / F Copies to: MD Janell Oliver, REPA[employer]ER [employer]~ HPI Date of Visit Date of Visit: Date of Service: 04/10/2024 Time of Service: 10:26 Narrative HPI: 12/11/23 Harman is an 83 year old presenting [facility] for an initial visit for eval and treatment of a left lower leg ulcer but she has both legs wrapped and so we were asked to look at both legs and not just the left, the right has nothing open or draining and so she can use her compression socks,she has compression pumps but said they do not work and so she does not use them, her is present for the entire visit, she has [facility], the left leg will be treated with honey sheet and unna wrap twice weekly, she can return herein a few weeks, no acute signs of infection noted today, ideas for diet and lifestyle and wound healing support were provided on her discharge paperwork, wecan discuss a full functional venous study if healing does not occur timely 12/28/23 both legs were wrapped on arrival, both legs have no open ulcers, both legs were wrapped again today for good measure and [facility] can remove next week and start stockings or wraps if something is open on the legs, family and friend present for the visit, does not need to return to the office unless new ulcers do develop, spoke about her getting established with a press operator carbon blocks and so hopefully she will follow through on that, spoke about compression socks too forlong term use 01/30/24 both legs are wrapped in unna wraps and they are very tight at the top and have rolled down and she is very tender where they have rolled down, we willhold the unna wraps and will apply rimma wraps today and she can use the rimma wrapsor compression socks and her compression pumps, we ordered venous and arterial studies to see if we can figure out the root cause of the continued ulcerations,her family member is present today, she has an open area to her left post thigh and this appears to be freshly sheared open- collagen silver to this area, she has us look at her buttocks and although there is no open or draining wounds shedoes have some dry areas that likely were wounds- she can use olive or coconut oil to the left buttock area multiple times daily, she can return in a few weeksand hopefully the studies are done and read by then, no signs of infection to the legs or thigh 02/13/24 acting very odd today, granddaughter says that she acts this way when taking pain meds, I am actually questioning a uti or some infectious process, please note that the right leg ulcer does not look infected and she is already taking oral augmentin that started last week per her pcp, we looked at the area of concern on her right buttock/perianal area and there is nothing open or draining, there is some very mild firmness but again nothing of concern at this time- no warmth or erythema, the left post thigh has healed, the left leg is still healed, her vascular testing is next week, her granddaughter was willing to take her to the ED and we did offer to take her there but she was ok with driving her around to the ED, we did provide a w/c to get her to the car, she had been instructed to go to the ED per the [facility] nurse but she had refused this and wanted to come to this appt instead 03/26/24 left leg with 2 very small openings, no infection noted, family present for the visit, never did obtain the pvr or venous studies so these were refaxed today, she did have a hospital and snf stay since her last visit after she was found to have an abscess that was found [address] scan- apparently this was opened in the ED back on 02/13/24, 2-3 week appt here 04/10/24 left leg is just about healed, injured herself yesterday on the fireplace and has a skin tear to the rle, spoke about the vascular studies and why I want a referral to vascular for the PAD in the lle- she understands and her granddaughter does too, no acute infection noted, 2 week appt Subjective Pain Left Leg: Pain Description: Intermittent Pain Intensity: 0 Right Leg: Pain Description: Intermittent Wound/Ulcer History When did wound start?: August 2023 bilateral lower leg ulcers Mode of Arrival/ Orthoptist: Friend Assistive Device Used Today: Walker Lives with:: Significant Other Appetite Description: Within Normal Limits Who helps w/ dressing change?: Home Health Why Do You Need Help?: Can't Reach Ulcer, Limited mobility, Unsafe leave home byself and Taxing effort to leave home Smoking Status: Former smoker [facility] Medical History (Updated 04/10/24 @ 10:30 by Janell Mathews APRN) Leg ulcer, left Cataract Problem List clean-up per request of Phys. 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 EHR [facility] Vaginal lesion Problem List clean-up per request of Phys. EHR [facility] PAD (peripheral artery disease) Problem List clean-up per request of Phys. EHR Cmte CAD (coronary artery disease) Problem List clean-up per request of Phys. EHR Cmte Dyslipidemia Problem List clean-up per request of Phys. EHR Cmte Hyperthyroidism Problem List clean-up per request of Phys. EHR [facility] Diabetes mellitus Problem List clean-up per request of Phys. EHR [facility] Hypertension Problem List clean-up per request of Phys. EHR [facility] Surgical History History of bladder suspension procedure Problem List clean-up per request of Phys. EHR [facility] H/O: hysterectomy Problem List clean-up per request of Phys. EHR [facility] History of appendectomy Problem List clean-up per request of Phys. EHR [facility] History of heart artery stent Problem List clean-up per request of Phys. EHR [facility] Family History (Updated 06/01/23 @ 08:45 by Provider Conversion) Father Mother Social History Smoking Status: Former smoker Tobacco Type: cigarettes Substance Use Type: None Grafts History of Graft History of Graft?: No Exam Physical Exam Vital Signs: Temp Pulse Resp BP O2 Del Method 97.2 F L 92 16 138/68 Room Air 04/10/24 10:21 04/10/24 10:21 04/10/24 10:21 04/10/24 10:21 04/10/24 10:21 Const General: cooperative, comfortable and no acute distress Nutritional Appearance: obese Orientation: alert, awake and oriented x3 Lower/Upper Extremity Exam Vascular Exam-Edema Left Lower Extremity: Edema Degree: 1+ Edema Type: Pitting Right Lower Extremity: Edema Degree: 2+ Edema Type: Pitting Vascular Exam-Pulses Left Brachial: Pulse Assessment Method: NIBP Left Dorsalis Pedis: Pulse Assessment Method: Palpation Left Posterior Tibial: Pulse Assessment Method: Palpation Right Dorsalis Pedis: Pulse Assessment Method: Palpation Right Posterior Tibial: Pulse Assessment Method: Palpation Objective Meds/Allergies Home Medications albuterol sulfate 2.5 mg/3 mL (0.083 %) solution for nebulization 1.25 mg inhalation Q4-6H PRN Shortness Of Breath 04/25/19 [History Confirmed 12/11/23] albuterol sulfate 90 mcg/actuation aerosol inhaler (Ventolin HFA) 2 puff inhalation Q6H PRN Shortness Of Breath 04/25/19 [History Confirmed 12/11/23] amlodipine 10 mg tablet 5 mg PO DAILY 04/25/19 [History Confirmed 12/11/23] apixaban 5 mg tablet (Eliquis) 5 mg PO BID 04/25/19 [History Confirmed 12/11/23] aspirin 81 mg tablet,delayed release (Chang Low Dose Aspirin) 81 mg PO DAILY 04/25/19 [History Confirmed 12/11/23] glimepiride 4 mg tablet 4 mg PO BID 04/25/19 [History Confirmed 12/11/23] hydralazine 100 mg tablet 100 mg PO TID 04/25/19 [History Confirmed 12/11/23] isosorbide mononitrate 60 mg tablet,extended release 24 hr 120 mg PO DAILY 04/25/19 [History Confirmed 12/11/23] levothyroxine 112 mcg tablet 112 mcg PO DAILY 04/25/19 [History Confirmed 12/11/23] metformin 500 mg tablet 500 mg PO BID 04/25/19 [History Confirmed 12/11/23] metoprolol succinate 200 mg tablet,extended release 24 hr 200 mg PO DAILY 04/25/19 [History Confirmed 12/11/23] omega-3s 300 yf-ryn-mmc-other [id number]-[id number] oil 1,000 mg capsule ([place]-3 Fish Oil) 2 cap PO BID 04/25/19 [History Confirmed 12/11/23] simvastatin 20 mg tablet 20 mg PO QPM 04/25/19 [History Confirmed 12/11/23] anastrozole 1 mg tablet 1 mg PO DAILY 11/29/22 [History Confirmed 12/11/23] cholecalciferol (vitamin D3) 125 mcg (5,000 unit) tablet (Vitamin D3) 125 mcg PODAILY 11/29/22 [History Confirmed 12/11/23] furosemide 40 mg tablet 40 mg PO Q2D 11/29/22 [History Confirmed 12/11/23] liothyronine 5 mcg tablet 5 mcg PO DAILY 11/29/22 [History Confirmed 12/11/23] sucralfate 1 gram tablet 1 g PO ACHS 11/29/22 [History Confirmed 12/11/23] empagliflozin 10 mg tablet (Jardiance) 10 mg PO DAILY 12/11/23 [History Confirmed 12/11/23] febuxostat 40 mg tablet 40 mg PO DAILY 12/11/23 [History Confirmed 12/11/23] ferrous sulfate 325 mg (65 mg iron) tablet (Feosol) 325 mg PO BID 12/11/23 [History Confirmed 12/11/23] insulin glargine 100 unit/mL (3 mL) subcutaneous pen (Lantus Solostar U-100 Insulin) 10 unit subcut QPM 12/11/23 [History Confirmed 12/11/23] insulin lispro 100 unit/mL subcutaneous solution (Humalog U-100 Insulin) 1 sliding scale dose subcut DIRECTED 12/11/23 [History Confirmed 12/11/23] spironolactone 50 mg tablet (Aldactone) 50 mg PO DAILY 12/11/23 [History Confirmed 12/11/23] amoxicillin 875 mg-potassium clavulanate 125 mg tablet tab PO DAILY 02/13/24 [History] Allergies ciprofloxacin Allergy (Unknown, Unverified 06/01/23 08:45) Hives oxycodone [From Percocet] Allergy (Unknown, Unverified 06/01/23 08:45) Rash acetaminophen [From Percocet] Allergy (Verified 04/25/19 10:01) Rash cefdinir Allergy (Verified 12/11/23 09:29) Vomiting tramadol Adverse Reaction (Verified 11/29/22 09:13) Hallucinating Wound/Ulcer Left Lower Lateral Leg: Type: Venous Stasis Ulcer Thickness: Skin Breakdown Bed Appearance: [place] Percent of Wound Bed Granulated/Red: 100 Percent of Devitalized: 0 Length (cm): 0.1 Width (cm): 0.1 Depth (cm): 0.1 CM Sq: 0.010 Surrounding Tissue Appearance: Ecchymotic Surrounding Tissue Temp: Warm Drainage Amount: Scant Drainage Description: Serosanguineous Drainage Odor: No Odor Right Lower Leg: Type: Traumatic Thickness: Partial Bed Appearance: Beefy Red, Epithelial Tissue or Bridge and Yellow Percent of Wound Bed Granulated/Red: 95 Percent of Devitalized: 5 Length (cm): 1.7 Width (cm): 2 Depth (cm): 0.1 CM Sq: 3.400 Surrounding Tissue Appearance: Hyperpigmented and Ecchymotic Surrounding Tissue Temp: Warm Drainage Amount: Moderate Drainage Description: Serosanguineous Drainage Odor: No Odor Results Height: 4 ft 11 in Weight: 81.647 kg Body Mass Index: 36.3 Assessment/Plan Assessment/Plan (1) Leg ulcer, left: Qualifiers: Non-pressure ulcer stage: limited to breakdown of skin Qualified Code(s): L97.921 - Non-pressure chronic ulcer of unspecified part of left lower leg limited to breakdown of skin Code(s): L97.929 - Non-pressure chronic ulcer of unspecified part of left lower leg with unspecified severity Plan: appears venous resolved 12/28/23 resolved 01/30/24 open at 03/26/24 visit (2) Diabetes mellitus: Code(s): E11.9 - Type 2 diabetes mellitus without complications (3) Edema of both lower legs: Code(s): R60.0 - Localized edema (4) Varicose veins of both legs with edema: Code(s): I83.893 - Varicose veins of bilateral lower extremities with other complications (5) Uses walker: Code(s): Z99.89 - Dependence on other enabling machines and devices (6) Inflammation: (7) PAD (peripheral artery disease): Code(s): I73.9 - Peripheral vascular disease, unspecified Plan: mod pad lle per study april 09 2024 Plan see orders and hpi Time spent with patient Time Spent With Patient (min): 11 Dictated By: Janell Mathews APRN DD/ 1026 Signed By: <Electronically signed by FERNY Mathews> 04/10/24 1030 [facility] Work Phone: [phone] Progress note Author Janell Mathews [facility] March 26, 2024 9:51am Note Date/Time March 26, 2024 9:51 am [facility] [address] [place] [address] Wound Center Provider Note Signed Patient: Harman Mcleod MR#: [id number] : 1940 Acct:[id number] Age/Sex: 83 / F Copies to: MD Janell Oliver, FERNY~ HPI Date of Visit Date of Visit: Date of Service: 03/26/2024 Time of Service: 09:47 Narrative HPI: 12/11/23 Harman is an 83 year old [facility] for an initial visit for eval and treatment of a left lower leg ulcer but she has both legs wrapped and so we were asked to look at both legs and not just the left, the right has nothing open or draining and so she can use her compression socks,she has compression pumps but said they do not work and so she does not use them, her is present for the entire visit, she has [facility], the left leg will be treated with honey sheet and unna wrap twice weekly, she can return herein a few weeks, no acute signs of infection noted today, ideas for diet and lifestyle and wound healing support were provided on her discharge paperwork, wecan discuss a full functional venous study if healing does not occur timely 12/28/23 both legs were wrapped on arrival, both legs have no open ulcers, both legs were wrapped again today for good measure and hhc can remove next week and start stockings or wraps if something is open on the legs, family and friend present for the visit, does not need to return to the office unless new ulcers do develop, spoke about her getting established with a press operator carbon blocks and so hopefully she will follow through on that, spoke about compression socks too forlong term use 01/30/24 both legs are wrapped in unna wraps and they are very tight at the top and have rolled down and she is very tender where they have rolled down, we willhold the unna wraps and will apply rimma wraps today and she can use the rimma wrapsor compression socks and her compression pumps, we ordered venous and arterial studies to see if we can figure out the root cause of the continued ulcerations,her family member is present today, she has an open area to her left post thigh and this appears to be freshly sheared open- collagen silver to this area, she has us look at her buttocks and although there is no open or draining wounds shedoes have some dry areas that likely were wounds- she can use olive or coconut oil to the left buttock area multiple times daily, she can return in a few weeksand hopefully the studies are done and read by then, no signs of infection to the legs or thigh 02/13/24 acting very odd today, granddaughter says that she acts this way when taking pain meds, I am actually questioning a uti or some infectious process, please note that the right leg ulcer does not look infected and she is already taking oral augmentin that started last week per her pcp, we looked at the area of concern on her right buttock/perianal area and there is nothing open or draining, there is some very mild firmness but again nothing of concern at this time- no warmth or erythema, the left post thigh has healed, the left leg is still healed, her vascular testing is next week, her granddaughter was willing to take her to the ED and we did offer to take her there but she was ok with driving her around to the ED, we did provide a w/c to get her to the car, she had been instructed to go to the ED per the [facility] nurse but she had refused this and wanted to come to this appt instead 03/26/24 left leg with 2 very small openings, no infection noted, family present for the visit, never did obtain the pvr or venous studies so these were refaxed today, she did have a hospital and snf stay since her last visit after she was found to have an abscess that was found [address] scan- apparently this was opened in the ED back on 02/13/24, 2-3 week appt here Subjective Pain Left Leg: Pain Description: Intermittent Pain Intensity: 0 Wound/Ulcer History When did wound start?: August 2023 bilateral lower leg ulcers Mode of Arrival/ Orthoptist: Friend Assistive Device Used Today: Walker Lives with:: Significant Other Appetite Description: Within Normal Limits Who helps w/ dressing change?: Home Health Why Do You Need Help?: Can't Reach Ulcer, Limited mobility, Unsafe leave home byself and Taxing effort to leave home Smoking Status: Former smoker [facility] Medical History (Updated 02/13/24 @ 10:54 by Janell Mathews APRN) Leg ulcer, left Cataract Problem List clean-up per request of Phys. 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 EHR Cmte Vaginal lesion Problem List clean-up per request of Phys. EHR Cmte PAD (peripheral artery disease) Problem List clean-up per request of Phys. EHR Cmte CAD (coronary artery disease) Problem List clean-up per request of Phys. EHR Cmte Dyslipidemia Problem List clean-up per request of Phys. EHR Cmte Hyperthyroidism Problem List clean-up per request of Phys. EHR Cmte Diabetes mellitus Problem List clean-up per request of Phys. EHR Cmte Hypertension Problem List clean-up per request of Phys. EHR [facility] Surgical History History of bladder suspension procedure Problem List clean-up per request of Phys. EHR Cmte H/O: hysterectomy Problem List clean-up per request of Phys. EHR Cmte History of appendectomy Problem List clean-up per request of Phys. EHR Cmte History of heart artery stent Problem List clean-up per request of Phys. EHR [facility] Family History (Updated 06/01/23 @ 08:45 by Provider Conversion) Father Mother Social History Smoking Status: Former smoker Tobacco Type: cigarettes Substance Use Type: None Grafts History of Graft History of Graft?: No Exam Physical Exam Vital Signs: Temp Pulse Resp BP O2 Del Method 97.3 F L 86 18 128/61 Room Air 03/26/24 09:36 03/26/24 09:36 03/26/24 09:36 03/26/24 09:36 03/26/24 09:36 Const General: cooperative, comfortable and no acute distress Nutritional Appearance: obese Orientation: alert, awake and oriented x3 Lower/Upper Extremity Exam Vascular Exam-Edema Left Lower Extremity: Edema Degree: 1+ Edema Type: Pitting Vascular Exam-Pulses Left Brachial: Pulse Assessment Method: NIBP Objective Meds/Allergies Home Medications albuterol sulfate 2.5 mg/3 mL (0.083 %) solution for nebulization 1.25 mg inhalation Q4-6H PRN Shortness Of Breath 04/25/19 [History Confirmed 12/11/23] albuterol sulfate 90 mcg/actuation aerosol inhaler (Ventolin HFA) 2 puff inhalation Q6H PRN Shortness Of Breath 04/25/19 [History Confirmed 12/11/23] amlodipine 10 mg tablet 5 mg PO DAILY 04/25/19 [History Confirmed 12/11/23] apixaban 5 mg tablet (Eliquis) 5 mg PO BID 04/25/19 [History Confirmed 12/11/23] aspirin 81 mg tablet,delayed release (Chang Low Dose Aspirin) 81 mg PO DAILY 04/25/19 [History Confirmed 12/11/23] glimepiride 4 mg tablet 4 mg PO BID 04/25/19 [History Confirmed 12/11/23] hydralazine 100 mg tablet 100 mg PO TID 04/25/19 [History Confirmed 12/11/23] isosorbide mononitrate 60 mg tablet,extended release 24 hr 120 mg PO DAILY 04/25/19 [History Confirmed 12/11/23] levothyroxine 112 mcg tablet 112 mcg PO DAILY 04/25/19 [History Confirmed 12/11/23] metformin 500 mg tablet 500 mg PO BID 04/25/19 [History Confirmed 12/11/23] metoprolol succinate 200 mg tablet,extended release 24 hr 200 mg PO DAILY 04/25/19 [History Confirmed 12/11/23] omega-3s 300 ul-wrq-ptj-other uhepv6c-jhss oil 1,000 mg capsule ([place]-3 Fish Oil) 2 cap PO BID 04/25/19 [History Confirmed 12/11/23] simvastatin 20 mg tablet 20 mg PO QPM 04/25/19 [History Confirmed 12/11/23] anastrozole 1 mg tablet 1 mg PO DAILY 11/29/22 [History Confirmed 12/11/23] cholecalciferol (vitamin D3) 125 mcg (5,000 unit) tablet (Vitamin D3) 125 mcg PODAILY 11/29/22 [History Confirmed 12/11/23] furosemide 40 mg tablet 40 mg PO Q2D 03/21/23 [History Confirmed 12/11/23] liothyronine 5 mcg tablet 5 mcg PO DAILY 11/29/22 [History Confirmed 12/11/23] sucralfate 1 gram tablet 1 g PO ACHS 11/29/22 [History Confirmed 12/11/23] empagliflozin 10 mg tablet (Jardiance) 10 mg PO DAILY 12/11/23 [History Confirmed 12/11/23] febuxostat 40 mg tablet 40 mg PO DAILY 12/11/23 [History Confirmed 12/11/23] ferrous sulfate 325 mg (65 mg iron) tablet (Feosol) 325 mg PO BID 12/11/23 [History Confirmed 12/11/23] insulin glargine 100 unit/mL (3 mL) subcutaneous pen (Lantus Solostar U-100 Insulin) 10 unit subcut QPM 12/11/23 [History Confirmed 12/11/23] insulin lispro 100 unit/mL subcutaneous solution (Humalog U-100 Insulin) 1 sliding scale dose subcut DIRECTED 12/11/23 [History Confirmed 12/11/23] spironolactone 50 mg tablet (Aldactone) 50 mg PO DAILY 12/11/23 [History Confirmed 12/11/23] amoxicillin 875 mg-potassium clavulanate 125 mg tablet tab PO DAILY 02/13/24 [History] Allergies ciprofloxacin Allergy (Unknown, Unverified 06/01/23 08:45) Hives oxycodone [From Percocet] Allergy (Unknown, Unverified 06/01/23 08:45) Rash acetaminophen [From Percocet] Allergy (Verified 04/25/19 10:01) Rash cefdinir Allergy (Verified 12/11/23 09:29) Vomiting tramadol Adverse Reaction (Verified 11/29/22 09:13) Hallucinating Wound/Ulcer Left Lower Lateral Leg: Type: Venous Stasis Ulcer Thickness: Skin Breakdown Bed Appearance: Epithelial Tissue or Bridge, [place] and Yellow Percent of Wound Bed Granulated/Red: 95 Percent of Devitalized: 5 Length (cm): 9.0 Width (cm): 7.0 Depth (cm): 0.1 CM Sq: 63.000 Surrounding Tissue Appearance: Ecchymotic Surrounding Tissue Temp: Warm Drainage Amount: Small Drainage Description: Serosanguineous Drainage Odor: No Odor Results Height: 4 ft 11 in Weight: 81.647 kg Body Mass Index: 36.3 Assessment/Plan Assessment/Plan (1) Leg ulcer, left: Qualifiers: Non-pressure ulcer stage: limited to breakdown of skin Qualified Code(s): L97.921 - Non-pressure chronic ulcer of unspecified part of left lower leg limited to breakdown of skin Code(s): L97.929 - Non-pressure chronic ulcer of unspecified part of left lower leg with unspecified severity Plan: appears venous resolved 12/28/23 resolved 01/30/24 open at 03/26/24 visit (2) Diabetes mellitus: Code(s): E11.9 - Type 2 diabetes mellitus without complications (3) Edema of both lower legs: Code(s): R60.0 - Localized edema (4) Varicose veins of both legs with edema: Code(s): I83.893 - Varicose veins of bilateral lower extremities with other complications (5) Uses walker: Code(s): Z99.89 - Dependence on other enabling machines and devices (6) Inflammation: Plan see orders and hpi Time spent with patient Time Spent With Patient (min): 12 Dictated By: Janell Mathews APRN DD/ 0947 Signed By: <Electronically signed by FERNY Mathews> 03/26/24 0951 [facility] Work Phone: [phone] 711-553506-04-2024 Progress note Author Janell Mathews [facility] February 13, 2024 10:55am Note Date/Time February 13, 2024 10:55 am [facility] [address] [place] [address] Wound Center Provider Note Signed Patient: Harman Mcleod MR#: [id number] : 1940 Acct:[id number] Age/Sex: 83 / F Copies to: MD Janell Oliver APRN~ HPI Date of Visit Date of Visit: Date of Service: 02/13/2024 Time of Service: 10:47 Narrative HPI: 12/11/23 Harman is an 83 year old presenting [facility] for an initial visit for eval and treatment of a left lower leg ulcer but she has both legs wrapped and so we were asked to look at both legs and not just the left, the right has nothing open or draining and so she can use her compression socks,she has compression pumps but said they do not work and so she does not use them, her is present for the entire visit, she has [facility], the left leg will be treated with honey sheet and unna wrap twice weekly, she can return herein a few weeks, no acute signs of infection noted today, ideas for diet and lifestyle and wound healing support were provided on her discharge paperwork, wecan discuss a full functional venous study if healing does not occur timely 12/28/23 both legs were wrapped on arrival, both legs have no open ulcers, both legs were wrapped again today for good measure and [facility] can remove next week and start stockings or wraps if something is open on the legs, family and friend present for the visit, does not need to return to the office unless new ulcers do develop, spoke about her getting established with a press operator carbon blocks and so hopefully she will follow through on that, spoke about compression socks too forlong term use 01/30/24 both legs are wrapped in unna wraps and they are very tight at the top and have rolled down and she is very tender where they have rolled down, we willhold the unna wraps and will apply rimma wraps today and she can use the rimma wrapsor compression socks and her compression pumps, we ordered venous and arterial studies to see if we can figure out the root cause of the continued ulcerations,her family member is present today, she has an open area to her left post thigh and this appears to be freshly sheared open- collagen silver to this area, she has us look at her buttocks and although there is no open or draining wounds shedoes have some dry areas that likely were wounds- she can use olive or coconut oil to the left buttock area multiple times daily, she can return in a few weeksand hopefully the studies are done and read by then, no signs of infection to the legs or thigh 02/13/24 acting very odd today, granddaughter says that she acts this way when taking pain meds, I am actually questioning a uti or some infectious process, please note that the right leg ulcer does not look infected and she is already taking oral augmentin that started last week per her pcp, we looked at the area of concern on her right buttock/perianal area and there is nothing open or draining, there is some very mild firmness but again nothing of concern at this time- no warmth or erythema, the left post thigh has healed, the left leg is still healed, her vascular testing is next week, her granddaughter was willing to take her to the ED and we did offer to take her there but she was ok with driving her around to the ED, we did provide a w/c to get her to the car, she had been instructed to go to the ED per the [facility] nurse but she had refused this and wanted to come to this appt instead Subjective Pain Left Leg: Pain Description: Intermittent Pain Intensity: 0 Wound/Ulcer History When did wound start?: August 2023 bilateral lower leg ulcers Mode of Arrival/ Orthoptist: Friend Assistive Device Used Today: Walker Lives with:: Significant Other Appetite Description: Within Normal Limits Who helps w/ dressing change?: Home Health Why Do You Need Help?: Can't Reach Ulcer, Limited mobility, Unsafe leave home byself and Taxing effort to leave home Smoking Status: Former smoker [facility] Medical History (Updated 02/13/24 @ 10:54 by Janell Mathews APRN) Leg ulcer, left Cataract Problem List clean-up per request of Phys. 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 EHR Cmte Vaginal lesion Problem List clean-up per request of Phys. EHR Cmte PAD (peripheral artery disease) Problem List clean-up per request of Phys. EHR Cmte CAD (coronary artery disease) Problem List clean-up per request of Phys. EHR Cmte Dyslipidemia Problem List clean-up per request of Phys. EHR Cmte Hyperthyroidism Problem List clean-up per request of Phys. EHR Cmte Diabetes mellitus Problem List clean-up per request of Phys. EHR Cmte Hypertension Problem List clean-up per request of Phys. EHR Cmte Surgical History History of bladder suspension procedure Problem List clean-up per request of Phys. EHR Cmte H/O: hysterectomy Problem List clean-up per request of Phys. EHR Cmte History of appendectomy Problem List clean-up per request of Phys. EHR Cmte History of heart artery stent Problem List clean-up per request of Phys. EHR Cmte Family History (Updated 06/01/23 @ 08:45 by Provider Conversion) Father Mother Social History Smoking Status: Former smoker Tobacco Type: cigarettes Substance Use Type: None Grafts History of Graft History of Graft?: No Exam Physical Exam Vital Signs: Temp Pulse Resp BP O2 Del Method 98.2 F 98 18 117/71 Room Air 02/13/24 10:34 01/30/24 10:25 02/13/24 10:34 02/13/24 10:34 02/13/24 10:34 Const General: cooperative, comfortable and no acute distress Nutritional Appearance: obese Orientation: alert, awake and oriented x3 Lower/Upper Extremity Exam Vascular Exam-Edema Left Lower Extremity: Edema Degree: 1+ Edema Type: Pitting Vascular Exam-Pulses Left Brachial: Pulse Assessment Method: Palpation Objective Meds/Allergies Home Medications albuterol sulfate 2.5 mg/3 mL (0.083 %) solution for nebulization 1.25 mg inhalation Q4-6H PRN Shortness Of Breath 04/25/19 [History Confirmed 12/11/23] albuterol sulfate 90 mcg/actuation aerosol inhaler (Ventolin HFA) 2 puff inhalation Q6H PRN Shortness Of Breath 04/25/19 [History Confirmed 12/11/23] amlodipine 10 mg tablet 5 mg PO DAILY 04/25/19 [History Confirmed 12/11/23] apixaban 5 mg tablet (Eliquis) 5 mg PO BID 04/25/19 [History Confirmed 12/11/23] aspirin 81 mg tablet,delayed release (Chang Low Dose Aspirin) 81 mg PO DAILY 04/25/19 [History Confirmed 12/11/23] glimepiride 4 mg tablet 4 mg PO BID 04/25/19 [History Confirmed 12/11/23] hydralazine 100 mg tablet 100 mg PO TID 04/25/19 [History Confirmed 12/11/23] isosorbide mononitrate 60 mg tablet,extended release 24 hr 120 mg PO DAILY 04/25/19 [History Confirmed 12/11/23] levothyroxine 112 mcg tablet 112 mcg PO DAILY 04/25/19 [History Confirmed 12/11/23] metformin 500 mg tablet 500 mg PO BID 04/25/19 [History Confirmed 12/11/23] metoprolol succinate 200 mg tablet,extended release 24 hr 200 mg PO DAILY 04/25/19 [History Confirmed 12/11/23] omega-3s 300 hv-vtr-jlb-other [id number]-[id number] oil 1,000 mg capsule ([place]-3 Fish Oil) 2 cap PO BID 04/25/19 [History Confirmed 12/11/23] simvastatin 20 mg tablet 20 mg PO QPM 04/25/19 [History Confirmed 12/11/23] anastrozole 1 mg tablet 1 mg PO DAILY 11/29/22 [History Confirmed 12/11/23] cholecalciferol (vitamin D3) 125 mcg (5,000 unit) tablet (Vitamin D3) 125 mcg PODAILY 11/29/22 [History Confirmed 12/11/23] furosemide 40 mg tablet 40 mg PO Q2D 11/29/22 [History Confirmed 12/11/23] liothyronine 5 mcg tablet 5 mcg PO DAILY 11/29/22 [History Confirmed 12/11/23] sucralfate 1 gram tablet 1 g PO ACHS 11/29/22 [History Confirmed 12/11/23] empagliflozin 10 mg tablet (Jardiance) 10 mg PO DAILY 12/11/23 [History Confirmed 12/11/23] febuxostat 40 mg tablet 40 mg PO DAILY 12/11/23 [History Confirmed 12/11/23] ferrous sulfate 325 mg (65 mg iron) tablet (Feosol) 325 mg PO BID 12/11/23 [History Confirmed 12/11/23] insulin glargine 100 unit/mL (3 mL) subcutaneous pen (Lantus Solostar U-100 Insulin) 10 unit subcut QPM 12/11/23 [History Confirmed 12/11/23] insulin lispro 100 unit/mL subcutaneous solution (Humalog U-100 Insulin) 1 sliding scale dose subcut DIRECTED 12/11/23 [History Confirmed 12/11/23] spironolactone 50 mg tablet (Aldactone) 50 mg PO DAILY 12/11/23 [History Confirmed 12/11/23] amoxicillin 875 mg-potassium clavulanate 125 mg tablet tab PO DAILY 02/13/24 [History] Allergies ciprofloxacin Allergy (Unknown, Unverified 06/01/23 08:45) Hives oxycodone [From Percocet] Allergy (Unknown, Unverified 06/01/23 08:45) Rash acetaminophen [From Percocet] Allergy (Verified 04/25/19 10:01) Rash cefdinir Allergy (Verified 12/11/23 09:29) Vomiting tramadol Adverse Reaction (Verified 11/29/22 09:13) Hallucinating Wound/Ulcer Left Lower Lateral Leg: Type: Venous Stasis Ulcer Thickness: Skin Breakdown Bed Appearance: Epithelial Tissue or Bridge Percent of Wound Bed Granulated/Red: 0 Percent of Devitalized: 0 Length (cm): 0 Width (cm): 0 Depth (cm): 0 CM Sq: 0.000 Surrounding Tissue Appearance: Ethnic/Norm Surrounding Tissue Temp: Warm Drainage Amount: None Drainage Odor: No Odor Left Posterior Thigh: Bed Appearance: Beefy Red and [place] Percent of Wound Bed Granulated/Red: 0 Percent of Devitalized: 0 Length (cm): 0 Width (cm): 0 Depth (cm): 0 CM Sq: 0.000 Surrounding Tissue Appearance: Hyperpigmented Surrounding Tissue Temp: Warm Drainage Amount: None Drainage Odor: No Odor Right Lower Leg: Type: Traumatic Thickness: Partial Bed Appearance: Beefy Red, Epithelial Tissue or Bridge and Pale Percent of Wound Bed Granulated/Red: 99 Percent of Devitalized: 1 Length (cm): 2.5 Width (cm): 0.6 Depth (cm): 0.1 CM Sq: 1.500 Surrounding Tissue Appearance: Hyperpigmented Surrounding Tissue Temp: Warm Drainage Amount: Moderate Drainage Description: Serosanguineous and Yellow Drainage Odor: No Odor Results Height: 4 ft 11 in Weight: 81.647 kg Body Mass Index: 36.3 Assessment/Plan Assessment/Plan (1) Altered mental status: Qualifiers: Altered mental status type: unspecified Qualified Code(s): R41.82 - Altered mental status, unspecified Code(s): R41.82 - Altered mental status, unspecified (2) Leg wound, right: Qualifiers: Encounter type: initial encounter Qualified Code(s): S81.801A - Unspecified open wound, right lower leg, initial encounter Code(s): S81.801A - Unspecified open wound, right lower leg, initial encounter (3) Diabetes mellitus: Code(s): E11.9 - Type 2 diabetes mellitus without complications (4) Edema of both lower legs: Code(s): R60.0 - Localized edema (5) Varicose veins of both legs with edema: Code(s): I83.893 - Varicose veins of bilateral lower extremities with other complications (6) Uses walker: Code(s): Z99.89 - Dependence on other enabling machines and devices (7) Inflammation: (8) Open wound of left thigh: Qualifiers: Encounter type: subsequent encounter Qualified Code(s): S71.102D - Unspecified open wound, left thigh, subsequent encounter Code(s): S71.102A - Unspecified open wound, left thigh, initial encounter Plan: posterior 02/13/24 resolved (9) Leg ulcer, left: Qualifiers: Non-pressure ulcer stage: limited to breakdown of skin Qualified Code(s): L97.921 - Non-pressure chronic ulcer of unspecified part of left lower leg limited to breakdown of skin Code(s): L97.929 - Non-pressure chronic ulcer of unspecified part of left lower leg with unspecified severity Plan: appears venous resolved 12/28/23 resolved 01/30/24 Plan see orders and hpi Time spent with patient Time Spent With Patient (min): 15 Dictated By: Janell Mathews APRN DD/ [id number] Signed By: <Electronically signed by FERNY Mathews> 02/13/24 1055 [facility] Work Phone: [phone]) 486-529805-21-2024 Progress note Author Janell Mathews [facility] January 30, 2024 10:44am Note Date/Time January 30, 2024 10:44 am [facility] [address] [place] [address] Wound Center Provider Note Signed Patient: Harman Mcleod MR#: [id number] : 1940 Acct:[id number] Age/Sex: 83 / F Copies to: MD Janell Oliver APRN~ HPI Date of Visit Date of Visit: Date of Service: 01/30/2024 Time of Service: 10:37 Narrative HPI: 12/11/23 Harman is an 83 year old [facility] for an initial visit for eval and treatment of a left lower leg ulcer but she has both legs wrapped and so we were asked to look at both legs and not just the left, the right has nothing open or draining and so she can use her compression socks,she has compression pumps but said they do not work and so she does not use them, her is present for the entire visit, she has [facility], the left leg will be treated with honey sheet and unna wrap twice weekly, she can return herein a few weeks, no acute signs of infection noted today, ideas for diet and lifestyle and wound healing support were provided on her discharge paperwork, wecan discuss a full functional venous study if healing does not occur timely 12/28/23 both legs were wrapped on arrival, both legs have no open ulcers, both legs were wrapped again today for good measure and [facility] can remove next week and start stockings or wraps if something is open on the legs, family and friend present for the visit, does not need to return to the office unless new ulcers do develop, spoke about her getting established with a press operator carbon blocks and so hopefully she will follow through on that, spoke about compression socks too forlong term use 01/30/24 both legs are wrapped in unna wraps and they are very tight at the top and have rolled down and she is very tender where they have rolled down, we willhold the unna wraps and will apply rimma wraps today and she can use the rimma wrapsor compression socks and her compression pumps, we ordered venous and arterial studies to see if we can figure out the root cause of the continued ulcerations,her family member is present today, she has an open area to her left post thigh and this appears to be freshly sheared open- collagen silver to this area, she has us look at her buttocks and although there is no open or draining wounds shedoes have some dry areas that likely were wounds- she can use olive or coconut oil to the left buttock area multiple times daily, she can return in a few weeksand hopefully the studies are done and read by then, no signs of infection to the legs or thigh Subjective Pain Left Leg: Pain Description: Intermittent Pain Intensity: 0 Wound/Ulcer History When did wound start?: August 2023 bilateral lower leg ulcers Mode of Arrival/ Orthoptist: Friend Assistive Device Used Today: Walker Lives with:: Significant Other Appetite Description: Within Normal Limits Who helps w/ dressing change?: Home Health Why Do You Need Help?: Can't Reach Ulcer, Limited mobility, Unsafe leave home byself and Taxing effort to leave home Smoking Status: Former smoker [facility] Medical History (Updated 01/30/24 @ 10:43 by Janell Mathews APRN) Leg ulcer, left Cataract Problem List clean-up per request of Phys. 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 EHR Cmte Vaginal lesion Problem List clean-up per request of Phys. EHR Cmte PAD (peripheral artery disease) Problem List clean-up per request of Phys. EHR Cmte CAD (coronary artery disease) Problem List clean-up per request of Phys. EHR Cmte Dyslipidemia Problem List clean-up per request of Phys. EHR Cmte Hyperthyroidism Problem List clean-up per request of Phys. EHR Cmte Diabetes mellitus Problem List clean-up per request of Phys. EHR Cmte Hypertension Problem List clean-up per request of Phys. EHR Cmte Surgical History History of bladder suspension procedure Problem List clean-up per request of Phys. EHR Cmte H/O: hysterectomy Problem List clean-up per request of Phys. EHR Cmte History of appendectomy Problem List clean-up per request of Phys. EHR Cmte History of heart artery stent Problem List clean-up per request of Phys. [facility] Family History (Updated 06/01/23 @ 08:45 by Provider Conversion) Father Mother Social History Smoking Status: Former smoker Tobacco Type: cigarettes Substance Use Type: None Grafts History of Graft History of Graft?: No Exam Physical Exam Vital Signs: Temp Pulse Resp BP O2 Del Method 98.2 F 98 20 131/81 Room Air 01/30/24 10:25 01/30/24 10:25 01/30/24 10:25 01/30/24 10:25 01/30/24 10:25 Const General: cooperative, comfortable and no acute distress Nutritional Appearance: obese Orientation: alert, awake and oriented x3 Lower/Upper Extremity Exam Vascular Exam-Edema Left Lower Extremity: Edema Degree: 1+ Edema Type: Pitting Vascular Exam-Pulses Left Brachial: Pulse Assessment Method: Palpation Objective Meds/Allergies Home Medications albuterol sulfate 2.5 mg/3 mL (0.083 %) solution for nebulization 1.25 mg inhalation Q4-6H PRN Shortness Of Breath 04/25/19 [History Confirmed 12/11/23] albuterol sulfate 90 mcg/actuation aerosol inhaler (Ventolin HFA) 2 puff inhalation Q6H PRN Shortness Of Breath 04/25/19 [History Confirmed 12/11/23] amlodipine 10 mg tablet 5 mg PO DAILY 04/25/19 [History Confirmed 12/11/23] apixaban 5 mg tablet (Eliquis) 5 mg PO BID 04/25/19 [History Confirmed 12/11/23] aspirin 81 mg tablet,delayed release (Chang Low Dose Aspirin) 81 mg PO DAILY 04/25/19 [History Confirmed 12/11/23] glimepiride 4 mg tablet 4 mg PO BID 04/25/19 [History Confirmed 12/11/23] hydralazine 100 mg tablet 100 mg PO TID 04/25/19 [History Confirmed 12/11/23] isosorbide mononitrate 60 mg tablet,extended release 24 hr 120 mg PO DAILY 04/25/19 [History Confirmed 12/11/23] levothyroxine 112 mcg tablet 112 mcg PO DAILY 04/25/19 [History Confirmed 12/11/23] metformin 500 mg tablet 500 mg PO BID 04/25/19 [History Confirmed 12/11/23] metoprolol succinate 200 mg tablet,extended release 24 hr 200 mg PO DAILY 04/25/19 [History Confirmed 12/11/23] omega-3s 300 mo-lgb-utr-other [id number]-[id number] oil 1,000 mg capsule ([place]-3 Fish Oil) 2 cap PO BID 04/25/19 [History Confirmed 12/11/23] simvastatin 20 mg tablet 20 mg PO QPM 04/25/19 [History Confirmed 12/11/23] anastrozole 1 mg tablet 1 mg PO DAILY 11/29/22 [History Confirmed 12/11/23] cholecalciferol (vitamin D3) 125 mcg (5,000 unit) tablet (Vitamin D3) 125 mcg PODAILY 11/29/22 [History Confirmed 12/11/23] furosemide 40 mg tablet 40 mg PO Q2D 11/29/22 [History Confirmed 12/11/23] liothyronine 5 mcg tablet 5 mcg PO DAILY 11/29/22 [History Confirmed 12/11/23] sucralfate 1 gram tablet 1 g PO ACHS 11/29/22 [History Confirmed 12/11/23] empagliflozin 10 mg tablet (Jardiance) 10 mg PO DAILY 12/11/23 [History Confirmed 12/11/23] febuxostat 40 mg tablet 40 mg PO DAILY 12/11/23 [History Confirmed 12/11/23] ferrous sulfate 325 mg (65 mg iron) tablet (Feosol) 325 mg PO BID 12/11/23 [History Confirmed 12/11/23] insulin glargine 100 unit/mL (3 mL) subcutaneous pen (Lantus Solostar U-100 Insulin) 10 unit subcut QPM 12/11/23 [History Confirmed 12/11/23] insulin lispro 100 unit/mL subcutaneous solution (Humalog U-100 Insulin) 1 sliding scale dose subcut DIRECTED 12/11/23 [History Confirmed 12/11/23] spironolactone 50 mg tablet (Aldactone) 50 mg PO DAILY 12/11/23 [History Confirmed 12/11/23] Allergies ciprofloxacin Allergy (Unknown, Unverified 06/01/23 08:45) Hives oxycodone [From Percocet] Allergy (Unknown, Unverified 06/01/23 08:45) Rash acetaminophen [From Percocet] Allergy (Verified 04/25/19 10:01) Rash cefdinir Allergy (Verified 12/11/23 09:29) Vomiting tramadol Adverse Reaction (Verified 11/29/22 09:13) Hallucinating Wound/Ulcer Left Lower Lateral Leg: Type: Venous Stasis Ulcer Thickness: Skin Breakdown Bed Appearance: Epithelial Tissue or Bridge Percent of Wound Bed Granulated/Red: 0 Percent of Devitalized: 0 Length (cm): 0 Width (cm): 0 Depth (cm): 0 CM Sq: 0.000 Surrounding Tissue Appearance: Ethnic/Norm Surrounding Tissue Temp: Warm Drainage Amount: None Drainage Odor: No Odor Left Posterior Thigh: Bed Appearance: Beefy Red and [place] Percent of Wound Bed Granulated/Red: 100 Percent of Devitalized: 0 Length (cm): 0.5 Width (cm): 0.5 Depth (cm): 0.1 CM Sq: 0.250 Surrounding Tissue Appearance: Hyperpigmented Surrounding Tissue Temp: Warm Drainage Amount: Scant Drainage Description: Serosanguineous Drainage Odor: No Odor Results Height: 4 ft 11 in Weight: 81.647 kg Body Mass Index: 36.3 Assessment/Plan Assessment/Plan (1) Open wound of left thigh: Qualifiers: Encounter type: initial encounter Qualified Code(s): S71.102A - Unspecified open wound, left thigh, initial encounter Code(s): S71.102A - Unspecified open wound, left thigh, initial encounter Plan: posterior (2) Leg ulcer, left: Qualifiers: Non-pressure ulcer stage: limited to breakdown of skin Qualified Code(s): L97.921 - Non-pressure chronic ulcer of unspecified part of left lower leg limited to breakdown of skin Code(s): L97.929 - Non-pressure chronic ulcer of unspecified part of left lower leg with unspecified severity Plan: appears venous resolved 12/28/23 resolved 01/30/24 (3) Diabetes mellitus: Code(s): E11.9 - Type 2 diabetes mellitus without complications (4) Edema of both lower legs: Code(s): R60.0 - Localized edema (5) Varicose veins of both legs with edema: Code(s): I83.893 - Varicose veins of bilateral lower extremities with other complications (6) Uses walker: Code(s): Z99.89 - Dependence on other enabling machines and devices (7) Inflammation: Plan see orders and hpi Time spent with patient Time Spent With Patient (min): 14 Dictated By: Janell Mathews APRN DD/ 1037 Signed By: <Electronically signed by FERNY Mathews> 01/30/24 1044 [facility] Work Phone: 1(954) 794-648504-18-2024 Progress note Author Janell Mathews [facility] December 28, 2023 11:22am Note Date/Time December 28, 2023 11: 22am [facility] [address] [place] [address] Wound Center Provider Note Signed Patient: Harman Mcleod MR#: [id number] : 1940 Acct:[id number] Age/Sex: 83 / F Copies to: MD Janell Oliver APRN~ HPI Date of Visit Date of Visit: Date of Service: 12/28/2023 Time of Service: 11:19 Narrative HPI: 12/11/23 Harman is an 83 year old [facility] for an initial visit for eval and treatment of a left lower leg ulcer but she has both legs wrapped and so we were asked to look at both legs and not just the left, the right has nothing open or draining and so she can use her compression socks,she has compression pumps but said they do not work and so she does not use them, her is present for the entire visit, she has [facility], the left leg will be treated with honey sheet and unna wrap twice weekly, she can return herein a few weeks, no acute signs of infection noted today, ideas for diet and lifestyle and wound healing support were provided on her discharge paperwork, wecan discuss a full functional venous study if healing does not occur timely 12/28/23 both legs were wrapped on arrival, both legs have no open ulcers, both legs were wrapped again today for good measure and hhc can remove next week and start stockings or wraps if something is open on the legs, family and friend present for the visit, does not need to return to the office unless new ulcers do develop, spoke about her getting established with a press operator carbon blocks and so hopefully she will follow through on that, spoke about compression socks too forlong term use Subjective Pain Left Leg: Pain Intensity: 0 Wound/Ulcer History When did wound start?: August 2023 bilateral lower leg ulcers Mode of Arrival/ Orthoptist: Friend Assistive Device Used Today: Walker Lives with:: Significant Other Appetite Description: Within Normal Limits Who helps w/ dressing change?: Home Health Why Do You Need Help?: Can't Reach Ulcer, Limited mobility, Unsafe leave home byself and Taxing effort to leave home Smoking Status: Former smoker [facility] Medical History (Updated 12/11/23 @ 09:30 by Janell Mathews APRN) Leg ulcer, left Cataract Problem List clean-up per request of Phys. 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 EHR Cmte Vaginal lesion Problem List clean-up per request of Phys. EHR Cmte PAD (peripheral artery disease) Problem List clean-up per request of Phys. EHR Cmte CAD (coronary artery disease) Problem List clean-up per request of Phys. EHR Cmte Dyslipidemia Problem List clean-up per request of Phys. EHR Cmte Hyperthyroidism Problem List clean-up per request of Phys. EHR Cmte Diabetes mellitus Problem List clean-up per request of Phys. EHR Cmte Hypertension Problem List clean-up per request of Phys. EHR Cmte Surgical History History of bladder suspension procedure Problem List clean-up per request of Phys. EHR Cmte H/O: hysterectomy Problem List clean-up per request of Phys. EHR Cmte History of appendectomy Problem List clean-up per request of Phys. EHR Cmte History of heart artery stent Problem List clean-up per request of Phys. [facility]HR [facility] Family History (Updated 06/01/23 @ 08:45 by Provider Conversion) Father Mother Social History Smoking Status: Former smoker Tobacco Type: cigarettes Substance Use Type: None Grafts History of Graft History of Graft?: No Exam Physical Exam Vital Signs: Temp Pulse Resp BP O2 Del Method 98.4 F 81 18 110/78 Room Air 12/28/23 11:00 12/28/23 11:00 12/28/23 11:00 12/28/23 11:00 12/28/23 11:00 Const General: cooperative, comfortable and no acute distress Nutritional Appearance: obese Orientation: alert, awake and oriented x3 Lower/Upper Extremity Exam Vascular Exam-Edema Left Lower Extremity: Edema Degree: 1+ Edema Type: Pitting Vascular Exam-Pulses Left Brachial: Pulse Assessment Method: NIBP Objective Meds/Allergies Home Medications albuterol sulfate 2.5 mg/3 mL (0.083 %) solution for nebulization 1.25 mg inhalation Q4-6H PRN Shortness Of Breath 04/25/19 [History Confirmed 12/11/23] albuterol sulfate 90 mcg/actuation aerosol inhaler (Ventolin HFA) 2 puff inhalation Q6H PRN Shortness Of Breath 04/25/19 [History Confirmed 12/11/23] amlodipine 10 mg tablet 5 mg PO DAILY 04/25/19 [History Confirmed 12/11/23] apixaban 5 mg tablet (Eliquis) 5 mg PO BID 04/25/19 [History Confirmed 12/11/23] aspirin 81 mg tablet,delayed release (Chang Low Dose Aspirin) 81 mg PO DAILY 04/25/19 [History Confirmed 12/11/23] glimepiride 4 mg tablet 4 mg PO BID 04/25/19 [History Confirmed 12/11/23] hydralazine 100 mg tablet 100 mg PO TID 04/25/19 [History Confirmed 12/11/23] isosorbide mononitrate 60 mg tablet,extended release 24 hr 120 mg PO DAILY 04/25/19 [History Confirmed 12/11/23] levothyroxine 112 mcg tablet 112 mcg PO DAILY 04/25/19 [History Confirmed 12/11/23] metformin 500 mg tablet 500 mg PO BID 04/25/19 [History Confirmed 12/11/23] metoprolol succinate 200 mg tablet,extended release 24 hr 200 mg PO DAILY 04/25/19 [History Confirmed 12/11/23] omega-3s 300 pu-aso-gef-other cijpu5g-[id number] oil 1,000 mg capsule ([place]-3 Fish Oil) 2 cap PO BID 04/25/19 [History Confirmed 12/11/23] simvastatin 20 mg tablet 20 mg PO QPM 04/25/19 [History Confirmed 12/11/23] anastrozole 1 mg tablet 1 mg PO DAILY 11/29/22 [History Confirmed 12/11/23] cholecalciferol (vitamin D3) 125 mcg (5,000 unit) tablet (Vitamin D3) 125 mcg PODAILY 11/29/22 [History Confirmed 12/11/23] furosemide 40 mg tablet 40 mg PO Q2D 11/29/22 [History Confirmed 12/11/23] liothyronine 5 mcg tablet 5 mcg PO DAILY 11/29/22 [History Confirmed 12/11/23] sucralfate 1 gram tablet 1 g PO ACHS 11/29/22 [History Confirmed 12/11/23] empagliflozin 10 mg tablet (Jardiance) 10 mg PO DAILY 12/11/23 [History Confirmed 12/11/23] febuxostat 40 mg tablet 40 mg PO DAILY 12/11/23 [History Confirmed 12/11/23] ferrous sulfate 325 mg (65 mg iron) tablet (Feosol) 325 mg PO BID 12/11/23 [History Confirmed 12/11/23] insulin glargine 100 unit/mL (3 mL) subcutaneous pen (Lantus Solostar U-100 Insulin) 10 unit subcut QPM 12/11/23 [History Confirmed 12/11/23] insulin lispro 100 unit/mL subcutaneous solution (Humalog U-100 Insulin) 1 sliding scale dose subcut DIRECTED 12/11/23 [History Confirmed 12/11/23] spironolactone 50 mg tablet (Aldactone) 50 mg PO DAILY 12/11/23 [History Confirmed 12/11/23] Allergies ciprofloxacin Allergy (Unknown, Unverified 06/01/23 08:45) Hives oxycodone [From Percocet] Allergy (Unknown, Unverified 06/01/23 08:45) Rash acetaminophen [From Percocet] Allergy (Verified 04/25/19 10:01) Rash cefdinir Allergy (Verified 12/11/23 09:29) Vomiting tramadol Adverse Reaction (Verified 11/29/22 09:13) Hallucinating Wound/Ulcer Left Lower Lateral Leg: Type: Venous Stasis Ulcer Thickness: Skin Breakdown Bed Appearance: Epithelial Tissue or Bridge Percent of Wound Bed Granulated/Red: 0 Percent of Devitalized: 0 Length (cm): 0 Width (cm): 0 Depth (cm): 0 CM Sq: 0.000 Surrounding Tissue Appearance: Ethnic/Norm Surrounding Tissue Temp: Warm Drainage Amount: None Drainage Odor: No Odor Results Height: 4 ft 11 in Weight: 81.647 kg Body Mass Index: 36.3 Assessment/Plan Assessment/Plan (1) Leg ulcer, left: Qualifiers: Non-pressure ulcer stage: limited to breakdown of skin Qualified Code(s): L97.921 - Non-pressure chronic ulcer of unspecified part of left lower leg limited to breakdown of skin Code(s): L97.929 - Plan: appears venous resolved 12/28/23 (2) Diabetes mellitus: Code(s): E11.9 - (3) Edema of both lower legs: Code(s): R60.0 - (4) Varicose veins of both legs with edema: Code(s): I83.893 - (5) Uses walker: Code(s): Z99.89 - (6) Inflammation: Plan see orders and hpi Time spent with patient Time Spent With Patient (min): 15 Dictated By: Janell Mathews APRN DD/ 1119 Signed By: <Electronically signed by FERNY Mathews> 12/28/23 [address] [facility] Work Phone: [phone]) 868-378604-01-2024 Progress note Author Janell Mathews [facility] December 11, 2023 9:35am Note Date/Time December 11, 2023 9:35 am [facility] [address] [place] [address] Wound Center Provider Note Signed Patient: Harman Mcleod MR#: [id number] : 1940 Acct:[id number] Age/Sex: 83 / F Copies to: MD Janell Oliver APRN~ HPI Date of Visit Date of Visit: Date of Service: 12/11/2023 Time of Service: 09:27 Narrative HPI: 12/11/23 Harman is an 83 year old presenting to [facility] wound care for an initial visit for eval and treatment of a left lower leg ulcer but she has both legs wrapped and so we were asked to look at both legs and not just the left, the right has nothing open or draining and so she can use her compression socks,she has compression pumps but said they do not work and so she does not use them, her is present for the entire visit, [facility], the left leg will be treated with honey sheet and unna wrap twice weekly, she can return herein a few weeks, no acute signs of infection noted today, ideas for diet and lifestyle and wound healing support were provided on her discharge paperwork, wecan discuss a full functional venous study if healing does not occur timely Subjective Pain Left Leg: Pain Description: Soreness Pain Intensity: 3 Wound/Ulcer History When did wound start?: August 2023 bilateral lower leg ulcers Mode of Arrival/ Orthoptist: Friend Assistive Device Used Today: Walker Lives with:: Significant Other Appetite Description: Within Normal Limits Who helps w/ dressing change?: Home Health Why Do You Need Help?: Can't Reach Ulcer, Limited mobility, Unsafe leave home byself and Taxing effort to leave home Smoking Status: Former smoker [facility] Medical History (Updated 12/11/23 @ 09:30 by Janell Mathews APRN) Leg ulcer, left Cataract Problem List clean-up per request of Phys. 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 EHR Cmte Vaginal lesion Problem List clean-up per request of Phys. EHR Cmte PAD (peripheral artery disease) Problem List clean-up per request of Phys. EHR Cmte CAD (coronary artery disease) Problem List clean-up per request of Phys. EHR Cmte Dyslipidemia Problem List clean-up per request of Phys. EHR Cmte Hyperthyroidism Problem List clean-up per request of Phys. EHR Cmte Diabetes mellitus Problem List clean-up per request of Phys. EHR Cmte Hypertension Problem List clean-up per request of Phys. EHR Cmte Surgical History History of bladder suspension procedure Problem List clean-up per request of Phys. EHR Cmte H/O: hysterectomy Problem List clean-up per request of Phys. EHR Cmte History of appendectomy Problem List clean-up per request of Phys. EHR Cmte History of heart artery stent Problem List clean-up per request of Phys. [facility] Family History (Updated 06/01/23 @ 08:45 by Provider Conversion) Father Mother Social History Smoking Status: Former smoker Tobacco Type: cigarettes Substance Use Type: None Grafts History of Graft History of Graft?: No Exam Physical Exam Vital Signs: Temp Pulse Resp O2 Del Method 97.3 F L 86 20 Room Air 12/11/23 09:10 12/11/23 09:10 12/11/23 09:10 12/11/23 09:10 Const General: cooperative, comfortable and no acute distress Nutritional Appearance: obese Orientation: alert, awake and oriented x3 Lower/Upper Extremity Exam Vascular Exam-Edema Left Lower Extremity: Edema Degree: 2+ Edema Type: Pitting Vascular Exam-Pulses Left Brachial: Pulse Assessment Method: NIBP Left Dorsalis Pedis: Pulse Assessment Method: Doppler Left Posterior Tibial: Pulse Assessment Method: Doppler Objective Meds/Allergies Home Medications albuterol sulfate 2.5 mg/3 mL (0.083 %) solution for nebulization 1.25 mg inhalation Q4-6H PRN Shortness Of Breath 04/25/19 [History Confirmed 12/11/23] albuterol sulfate 90 mcg/actuation aerosol inhaler (Ventolin HFA) 2 puff inhalation Q6H PRN Shortness Of Breath 04/25/19 [History Confirmed 12/11/23] amlodipine 10 mg tablet 5 mg PO DAILY 04/25/19 [History Confirmed 12/11/23] apixaban 5 mg tablet (Eliquis) 5 mg PO BID 04/25/19 [History Confirmed 12/11/23] aspirin 81 mg tablet,delayed release (Chang Low Dose Aspirin) 81 mg PO DAILY 04/25/19 [History Confirmed 12/11/23] glimepiride 4 mg tablet 4 mg PO BID 04/25/19 [History Confirmed 12/11/23] hydralazine 100 mg tablet 100 mg PO TID 04/25/19 [History Confirmed 12/11/23] isosorbide mononitrate 60 mg tablet,extended release 24 hr 120 mg PO DAILY 04/25/19 [History Confirmed 12/11/23] levothyroxine 112 mcg tablet 112 mcg PO DAILY 04/25/19 [History Confirmed 12/11/23] metformin 500 mg tablet 500 mg PO BID 04/25/19 [History Confirmed 12/11/23] metoprolol succinate 200 mg tablet,extended release 24 hr 200 mg PO DAILY 04/25/19 [History Confirmed 12/11/23] omega-3s 300 jb-iuu-kwl-other hqtcl4a-tuvx oil 1,000 mg capsule ([place]-3 Fish Oil) 2 cap PO BID 04/25/19 [History Confirmed 12/11/23] simvastatin 20 mg tablet 20 mg PO QPM 04/25/19 [History Confirmed 12/11/23] anastrozole 1 mg tablet 1 mg PO DAILY 11/29/22 [History Confirmed 12/11/23] cholecalciferol (vitamin D3) 125 mcg (5,000 unit) tablet (Vitamin D3) 125 mcg PODAILY 11/29/22 [History Confirmed 12/11/23] furosemide 40 mg tablet 40 mg PO Q2D 11/29/22 [History Confirmed 12/11/23] liothyronine 5 mcg tablet 5 mcg PO DAILY 11/29/22 [History Confirmed 12/11/23] sucralfate 1 gram tablet 1 g PO ACHS 11/29/22 [History Confirmed 12/11/23] empagliflozin 10 mg tablet (Jardiance) 10 mg PO DAILY 12/11/23 [History Confirmed 12/11/23] febuxostat 40 mg tablet 40 mg PO DAILY 12/11/23 [History Confirmed 12/11/23] ferrous sulfate 325 mg (65 mg iron) tablet (Feosol) 325 mg PO BID 12/11/23 [History Confirmed 12/11/23] insulin glargine 100 unit/mL (3 mL) subcutaneous pen (Lantus Solostar U-100 Insulin) 10 unit subcut QPM 12/11/23 [History Confirmed 12/11/23] insulin lispro 100 unit/mL subcutaneous solution (Humalog U-100 Insulin) 1 sliding scale dose subcut DIRECTED 12/11/23 [History Confirmed 12/11/23] spironolactone 50 mg tablet (Aldactone) 50 mg PO DAILY 12/11/23 [History Confirmed 12/11/23] Allergies ciprofloxacin Allergy (Unknown, Unverified 06/01/23 08:45) Hives oxycodone [From Percocet] Allergy (Unknown, Unverified 06/01/23 08:45) Rash acetaminophen [From Percocet] Allergy (Verified 04/25/19 10:01) Rash cefdinir Allergy (Verified 12/11/23 09:29) Vomiting tramadol Adverse Reaction (Verified 11/29/22 09:13) Hallucinating Wound/Ulcer Left Lower Lateral Leg: Type: Venous Stasis Ulcer Thickness: Skin Breakdown Bed Appearance: Epithelial Tissue or Bridge, [place] and Yellow Percent of Wound Bed Granulated/Red: 50 Percent of Devitalized: 50 Length (cm): 4.7 Width (cm): 4 Depth (cm): 0.1 CM Sq: 18.800 Surrounding Tissue Appearance: Hyperpigmented Surrounding Tissue Temp: Warm Drainage Amount: Moderate Drainage Description: Serosanguineous Drainage Odor: No Odor Results Height: 4 ft 11 in Weight: 81.647 kg Body Mass Index: 36.3 Assessment/Plan Assessment/Plan (1) Leg ulcer, left: Qualifiers: Non-pressure ulcer stage: limited to breakdown of skin Qualified Code(s): L97.921 - Non-pressure chronic ulcer of unspecified part of left lower leg limited to breakdown of skin Code(s): L97.929 - Non-pressure chronic ulcer of unspecified part of left lower leg with unspecified severity Plan: appears venous (2) Diabetes mellitus: Code(s): E11.9 - Type 2 diabetes mellitus without complications (3) Edema of both lower legs: Code(s): R60.0 - Localized edema (4) Varicose veins of both legs with edema: Code(s): I83.893 - Varicose veins of bilateral lower extremities with other complications (5) Uses walker: Code(s): Z99.89 - Dependence on other enabling machines and devices (6) Inflammation: Plan see orders and hpi Time spent with patient Time Spent With Patient (min): 13 Dictated By: Janell Mathews APRN DD/ 6 Signed By: <Electronically signed by FERNY Mathews> 12/11/23934 [facility] Work Phone: 1(525) 243-370510-10-2023 NoteHNO ID: [id number] Author: Winnie Guzmán PA-C Service: ? Author Type: Physician Locomotive Crane Operator Type: Progress Notes Filed: 06/20/2023 3:58 PM Note Text: PATIENT NAME: Harman Mcleod CLINIC NO.: [id number] ATTENDING PHYSICIAN: Wallace Stone MD DATE OF [...] Negative LVI, 2 SNL negative, ER and NV >95% positive, Her2 IHC 1+ Treatment History: R Breast Lumpectomy and SNL 10/19/2022 Decided not to have XRT Arimidex 11/2022 HPI: Harman Mlceod is a 82 year old year old [...] DM type 2 (diabetes mellitus, type 2) ([facility]) GERD (gastroesophageal reflux disease) High grade squamous [...] 6.4 10/24/2017 7.3 Al (more content not included)...[facility]10-10-2023 Nurse Note * Lina Lopes MA - 06/20/2023 2:49 PM EDT Patient would like to know if she needs a mammogram? She was told in Oct that she would need one in6 months. Lina Lopes MA documented in this encounterFirelands Regional Medical Center10-10-2023 History of Present illness Narrative* Winnie Guzmán PA-C - 06/20/2023 2:30 PM EDT Images from the original note were not included. PATIENT NAME: Harman Coronel [facility] NO.: [id number] ATTENDING PHYSICIAN: Wallace Stone MD DATE OF [...] Negative LVI, 2 SNL negative, ER and NV >95% positive, Her2 IHC 1+ Treatment History: R Breast Lumpectomy and SNL 10/19/2022 Decided not to have XRT Arimidex 11/2022 HPI: Harman Mcleod is a 82 year old year old female here for follow up. Taking her arimidex daily. Noissues with hot flashes or joint complaints. No new pain or other medical issues. She is having fluctuations in her blood sugars. Her PCP is monitoring it. She also is now followingwith rheumatology for her elevated uric acid levels [...] Range Status 06/20/2023 4.8 % Final Abs [place] Date Value Ref Range Status 06/20/2023 0.49 [...] follow up. R Breast T1b,N0,M0- ER and NV >95% positive and Her-2 IHC 1+ tumor post Lumpectomy and SNL 10/2022. Reviewed path and she elected not to proceed with XRT and started Arimidex in 11/2022. Continues to tolerate well. Mammogram in 07/2023 (order placed). See us in 4 months. Plan is for 5 years of AI therapy Osteoporosis- On Prolia started 08/[address] Perry Vulvar high grade dysplasia- Follows Staffing Assistant Onc at [facility] R Leg swelling and pain and h/o PVD- Follows vascular HTN--managed by PCP Winnei Guzmán PA-C CC: MD Mateus Spicer MD documented in this encounterFirelands Regional Medical Center09-21-2023 Evaluation note* Encounter Date Diagnosis Assessment Notes Treatment Notes Treatment Clinical Notes May, Right leg swelling (ICD-10 - M79.89) I had a lengthy discussion with this patient today. I do not recommend any further work-up for her leg swelling. I do not believe her leg swelling is of a vascular origin or etiology. We have had several negative duplex ultrasounds of the right lower extremity. In addition I took her to the [facility] and performed a right iliac venogram which [...] offer her a second opinion at the [facility] vascular medicine program. She declined. I will see her as needed in the future. [facility] Other 07-10-2023 NoteUT Cardiology - [facility] Subjective Harman Mcleod is a 82 y.o. year old female patient being seen for [facility] F/U Coronary Artery Disease, Atrial Fibrillation, Congestive Heart Failure, and Hypertension Patient Active Problem List Diagnosis Angina pectoris (CMS/HCC) Atherosclerosis of [place] coronary artery of [place] heart without angina pectoris Dyslipidemia Dyspnea Gastroesophageal [...] chemo tablet, T (more content not included)... [facility]06-29-2023 Evaluation note* Encounter Date Diagnosis Assessment Notes [...] to call us with any concerns whatsoever. [facility] Other 06-06-2023 NoteHNO ID: [id number] Author: Wallace Stone MD Service: ? Author Type: Physician Type: Progress Notes Filed: 02/14/2023 10:49 AM Note Text: PATIENT NAME: Harman Mcleod CLINIC NO.: [id number] ATTENDING PHYSICIAN: Wallace Stone MD DATE OF [...] Negative LVI, 2 SNL negative, ER and NV >95% positive, Her2 IHC 1+ Treatment History: [...] 04/28/2020 1.12 BUN (mg/dL) (more content not included)...[facility]06-06-2023 History of Present illness Narrative* Wallace Stone MD - 02/14/2023 10:37 AM EDT Images from the original note were not included. PATIENT NAME: Harman Mcleod CLINIC NO.: [id number] ATTENDING PHYSICIAN: Wallace Stone MD DATE OF [...] Negative LVI, 2 SNL negative, ER and NV >95% positive, Her2 IHC 1+ Treatment History: [...] Range Status 02/14/2023 8.3 % Final Abs [place] Date Value Ref Range Status 02/14/2023 0.86 [...] follow up. R Breast T1b,N0,M0- ER and NV >95% positive and Her-2 IHC 1+ tumor post Lumpectomy and SNL 10/2022. Reviewed path and she elected not to proceed with XRT and started Arimidex in 11/2022 and toleraing well. Plan for 5 years of therapy. Osteoporosis- On Prolia started 08/[address] Perry Vulvar high grade dysplasia- Follows Staffing Assistant Onc at [facility] R Leg swelling and pain and h/o PVD- Follows vascular HTN Rash- refer to Derm Thank you for the kind referral. If there are any questions and or concerns please do not hesitate to contact me at [phone]. Wallace Stone MD Hematology/Medical Oncology [facility] spent a total of 30 minutes on the date of the service which included preparing to see the patient, [id number]-pq-gjov patient care, completing clinical documentation, obtaining and/or reviewing separately obtained history, performing a medically appropriate examination, counseling and educating the pat ient/family/caregiver, and ordering medications, tests, or procedures. CC: MD Mateus Spicer MD documented in this encounterFirelands Regional Medical Center03-29-2023 Evaluation note* Encounter Date Diagnosis Assessment Notes [...] primary care provider as well as her communications executive. We will continue to follow her along and see her again in a couple of months and see how she is doing with her pumps, conservative efforts, and weight management. She knows to call us in the meantime with any other additional concerns or complaints. [facility] Other 03-21-2023 [facility] Evaluation note* Encounter Date Diagnosis Assessment Notes [...] specified soft tissue disorders (ICD-10 - M79.89) [facility] Other 03-08-2023 Miscellaneous Notes* Telephone Encounter - Adriana Pereira [facility] - 11/16/2022 8:40 AM EST Called Vascular office spoke with Jessy. They have received this referral and have patient scheduledwith Dr Gonzales on 11/23 @ 10:00. Adriana Burnham * Telephone Encounter - Kira Ko [facility] - 11/10/2022 9:38 AM EST Records faxed. * Telephone Encounter - Adriana Pereira [facility] - 11/10/2022 8:46 AM EST Janeth: Information ready for you. Adriana Burnham * Telephone Encounter - Carlos Brooks - 11/09/2022 2:44 PM EST Vascular Consult [facility] Previous patient of Dr. Mendez 3 years or more. Janeth/Dudley: Can you please refer patient and follow up? Thanks! Carlos Brooks documented in this encounterFirelands Regional Medical Center03-01-2023 NoteHNO ID: [id number] Author: Wallace Stone MD Service: ? Author Type: Physician Type: Progress Notes Filed: 11/09/2022 2:24 PM Note Text: PATIENT NAME: Harman Mcleod CLINIC NO.: [id number] ATTENDING PHYSICIAN: Wallace Stone MD DATE OF SERVICE: November 09, [address] Banks referring provider defined for this encounter. here is an update on a follow up visit on female Harman Mcleod at the clinic 11/09/2022 Diagnosis: T1b, N0, M0- R breast, Tumor 9 mm, Grade 2, Margins negative, Negative LVI, 2 SNL negative, ER and NV >95% positive, Her2 IHC 1+ Treatment History: [...] (mg/dL) Date Value 0 (more content not included)...[facility]03-01-2023 History of Present illness Narrative* Wallace Stone MD - 11/09/2022 2:00 PM EST Images from the original note were not included. PATIENT NAME: Harman Mcleod CLINIC NO.: [id number] ATTENDING PHYSICIAN: Wallace Stone MD DATE OF SERVICE: November 09, [address] Banks referring provider defined for this encounter. here is an update on a follow up visit on female Harman Mcleod at the clinic 11/09/2022 Diagnosis: T1b, N0, M0- R breast, Tumor 9 mm, Grade 2, Margins negative, Negative LVI, 2 SNL negative, ER and NV >95% positive, Her2 IHC 1+ Treatment History: [...] follow up. R Breast T1b,N0,M0- ER and NV >95% positive and Her-2 IHC 1+ tumor post Lumpectomy and SNL 10/2022. Reviewed path and she may skip radiation and also discussed hormonal; therapy with an AI and she will start Arimidex. Discussed adverse events and she wishes to proceed. Osteoporosis- On Prolia started 08/[address] Perry Vulvar high grade dysplasia- Follows Staffing Assistant Onc at [facility] and next appointment 11/24/2022 [facility] R Leg swelling and pain and h/o PVD- refer to vascular HTN Thank you for the kind referral. If there are any questions and or concerns please do not hesitate to contact me at [phone]. Wallace Stone MD Hematology/Medical Oncology [facility] spent a total of 30 minutes on the date of the service which included preparing to see the patient, udgi-ev-fmbo patient care, completing clinical documentation, obtaining and/or reviewing separately obtained history, performing a medically appropriate examination, counseling and educating the pat ient/family/caregiver, and ordering medications, tests, or procedures. CC: MD Mateus Spicer MD documented in this encounterFirelands Regional Medical Center02-08-2023 NoteOPERATIVE NOTE OPERATION DATE: 10/19/2022 PREOPERATIVE DIAGNOSIS: Right breast cancer. POSTOPERATIVE DIAGNOSIS: Right breast cancer. PROCEDURE: Needle localized right breast lumpectomy with sentinel lymph node biopsy. SURGEON: Iliana Gagnon M.D. ANESTHESIA: General laryngeal mask airway. ENERGY PROJECT MANAGER: SADI Hammer ESTIMATED BLOOD LOSS: Less than [...] in good condition. CC: Mateus Perry M.D.[facility] [id number] NoteEXAMINATION: XR CHEST 2 V HISTORY: Pre-surgery [...] Electronically authenticated by: ALFONSO GEORGE Date: 2022-10-11 12:11[facility]01-13-2023 NoteHNO ID: [id number] Author: Marcin Shah MD Service: ? Author Type: Physician Type: Progress Notes Filed: 2022 6:06 AM Note Text: Radiation Oncology - New Patient/Consult Note PATIENT NAME: Harman Mcleod PATIENT REQUESTING PHYSICIAN: Dr. 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 PATIENT IDENTIFICATION: This patient was seen in the Department of Radiation Oncology at the [facility] with Marcin Shah MD. She was accompanied today by her family. Final recommendations will be communicated back to the requesting physician by way of the shared medical record, or letter to requesting physician via US mail. HISTORY OF PRESENT ILLNESS: Ms. Mcleod is an 82-year-old woman from [place], [place] who was discovered on screening mammogram from July 2022 to have an abnormality within the anterior upper outer quadrant of the right breast. This was confirmed on ultrasound and she underwent stereotactic biopsy on 08/19/2022 with pathology revealing intermediate grade IDC that was ER/NV positive HER2 negative. She has met with [...] of vagina (HGSIL) 12/[address] Marco Karasik High risk HPV infection History of blood [...] acetaminophen (TYLENOL EXTRA STRENGTH (more content not included)...[facility]01-12-2023 History of Present illness Narrative* Marcin Shah MD - 09/22/2022 11:38 PM EST Images from the original note were not included. Radiation Oncology - New Patient/Consult Note PATIENT NAME: Harman Mcleod PATIENT Signed: Marcin Shah MD I spent a total of 60 minutes on the date of the service which included preparing to see the patient, pikv-zg-elvo patient care, and counseling and educating the patient/family/caregiver. This document has been created with the use of voice recognition technology. It may contain inaccuracies, misspellings, inaccurate syntax or inappropriate word context that are a result of the inadequacies/shortcomings of said technology/software. documented in this encounterFirelands Regional Medical Center01-12-2023 NoteHNO ID: [id number] Author: Wallace Stone MD Service: ? Author Type: Physician Type: Progress Notes Filed: 09/22/2022 5:19 PM Note Text: PATIENT NAME: Harman Mcleod [facility] NO.: [id number] ATTENDING PHYSICIAN: Wallace Stone MD DATE OF [...] provisional grade 1 through 2, ER and NV greater than 95% positive, HER2/holden negative with an IHC score of 1+ and FISH negative at [facility]. This patient was subsequently referred to Dr. Iliana Gagnon for surgical consultation. Patient denies any previous history of abnormal mammograms and or breast biopsy. She has had a recent bone density in [place] and was diagnosed with osteoporosis and started on Prolia as well. Patient has a sister who was diagnosed with breast cancer at the age of 82 and her daughter diagnosed with breast cancer at the age of 37. She quit smoking approximately 4 years ago. 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 She [...] mouth daily at bedtime. Cut in half Pvnjs-1-QSI-EPA-Fish Oil 1,000 mg (120 mg-180 mg) cap [...] mellitus, type 2) (HCC) (more content not included)...[facility]01-12-20[facility] History of Present illness Narrative* Wallace Stone MD - 09/22/2022 5:10 PM EST Images from the original note were not included. PATIENT NAME: Harman Mcleod CLINIC NO.: [id number] ATTENDING PHYSICIAN: Wallace Stone MD DATE OF [...] provisional grade 1 through 2, ER and NV greater than 95% positive, HER2/holden negative with an IHC score of 1+ and FISH negative at [facility]. This patient was subsequently referred to Dr. Iliana Gagnon for surgical consultation. Patient denies any previous history of abnormal mammograms and or breast biopsy. She has had a recent bone density in [place] and was diagnosed with osteoporosis and started on Prolia as well. Patient has a sister who was diagnosed with breast cancer at the age of 82 and her daughter diagnosed with breast cancer at the age of 37. She quit smoking approximately 4 years ago. 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 She [...] mouth daily at bedtime. Cut in half Enzkc-2-VFG-EPA-Fish Oil 1,000 mg (120 mg-180 mg) cap [...] ductal carcinoma, provisional grade 1-2, ER and NV greater than 95% positive, HER2/holden negative with [...] below. Wallace Stone M.D. Hematology/Medical Oncology [facility] [phone] CC: MD Mateus Spicer MD I spent a total of 60 minutes on the date of the service which included preparing to see the patient, wvoi-qv-upla patient care, completing clinical documentation, obtaining and/or reviewing separately obtained history, performing a medically appropriate examination, counseling and educating the pat ient/family/caregiver, ordering medications, tests, or procedures, and communicating with other HCPs (not separately reported). documented in this encounterFire[facility]23 Miscellaneous Notes* Telephone Encounter - Lars Wilkerson [...] involved. Lars Wilkerson RN documented in this encounterFirelands Regional Medical Center01-06-2023 NoteCardiology Clinic Note Subjective Harman Mcleod is [...] List Diagnosis Angina pectoris (CMS/HCC) Atherosclerosis of ho-chunk coronary artery of ho-chunk heart without angina pectoris Dyslipidemia Dyspnea Gastroesophageal reflux disease S/P coronary artery stent placement HGSIL Pap smear of vagina Hyperlipidemia Hypothyroidism Moderate smoker (20 or less per day) Paroxysmal atrial fibrillation (CMS/HCC) Essential hypertension Postoperative state Tobacco user DM type 2 (diabetes mellitus, type 2) ([facility]) 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 diastolic (congestive) heart failure ([facility]) BMI 36.0-36.9,adult Brain stem vertigo Breast cancer of upper-outer quadrant of right female breast ([facility]) Cervical disc disease Chronic anticoagulation Chronic diastolic heart failure ([facility]) Chronic low back pain Chronic obstructive pulmonary disease ([facility]) Diverticulosis Edema Invasive ductal carcinoma of right breast ([facility]) Osteopenia Pseudoaneurysm of femoral artery ([facility]) Pure hypercholesterolemia Rectal bleeding Stage 2 chronic [...] mouth., Disp: , Rfl: fish oil concentrate ([place]-3) 120-180 mg capsule, Take 1,000 mg by [...] Recent Labs 08/13/22: Hg (more content not included)...[facility] 09-16-2022 NotePatient here for 5 mo follow up CAD, PVD, CHF, and PAF. She needs the ok to hold aspirin and Eliquis for upcoming breast lumpectomy. Denies chest pain, SOB, and bleeding on Eliquis. Review of Systems Constitutional: Positive for malaise/fatigue. Cardiovascular: Positive for leg swelling. Neurological: Positive for tremors. All other systems reviewed and are negative.[facility] 09-09-2022 NoteChief Complaint consultation for right breast [...] biopsy that r evealed invasive ductal carcinoma, ER/NV +; Her2 holden negative; patient denies change [...] gms IV prior to OR SCDs Ordered: [facility] [place] Ambulatory Referral [facility] [place] Ambulatory Referral 2. Chronic anticoagulation (Z79.01: USP (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) hold Eliquis 2 days prior to surgery, if ok with Cardiology. Ordered: [facility] [place] Ambulatory Referral [facility] [place] Ambulatory Referral 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 of ho-chunk artery of extremity BMI 36.0-36.9,adult Brain stem vertigo Breast cancer of (more content not included)...[facility] Comment on above:Result Comment: Electronically Signed By: CHELSI CARDONA, Iliana Alvarez\Date and Time Signed: 09/09/22 16:38 [id number] History of Present illness Narrative* Brody Ken [...] Plunkett MD - 06/28/2022 9:08 AM EDT Staffing Assistant Oncology Attending Note Patient seen and evaluated [...] per Deborah/ Dr. Garza. documented in [facility] Phone: [phone]) 421-186010-18-2022 Hospital Discharge instructions* Discharge Instructions* Brody Ken [...] urinate call your doctor documented in this [facility]TU[facility] Phone: 1(311) [phone] History of Present illness Narrative* Brody Ken [...] Plunkett MD - 12/13/2021 2:12 PM EDT Staffing Assistant Oncology Attending Note Patient seen and evaluated [...] chart for or 12/13/21 documented in this encounterNavatek Alternative Energy Technologies Phone: 1(727) 918-766704-04-2022 Evaluation note* Diagnosis Vaginectomy w/ Cysto 12/13/21- Primary Other postprocedural status documented in this encounter [employer] Phone: [phone] 333-495804-04-2022 Hospital Discharge instructions* Instructions* Brody Ken RN [...] of: May 19, 2021 Content Version: 13.2 [employer]. Care instructions adapted under license by [employer]. If you have questions about a medical condition or this instruction, always ask your healthcare professional. [employer] disclaims any warranty or liability for your [...] urinate call your doctor documented in this [facility] [employer] Phone: 1(160) 107-177103-28-2022 History of Present illness Narrative* YANA Wallis [...] Disease: Yes, stents x 3, Dr. Keyes ([facility]) Hypertension: yes Active smoker: Quit 2017, [...] as well. There is a note in Epic from Dr. Garza that he has also already spoken with cardiology regarding blood thinners. YOANNA DIAZ PA-C 12/06/21 3:54 PM * Byron Oshea RN - 12/06/2021 3:[address] garza and pcp potassium 3.3,wbc 12.6 documented in this [facility] [employer] Phone: [phone]) 683-949503-25-2022 Hospital Discharge instructions* Instructions* Yoanna Diaz PA [...] drive you home after your procedure. Your roll off driver must be 18 years of age [...] questions, call the Pre-Admission Testing Unit at [phone]. Day of Surgery/Procedure As a patient at [facility] you can expect quality medical and nursing care that is centered on your individual needs. Our goal is to make your surgical experience as comfortableas possible . Directions to the Surgery Center [facility] is located at [address] [place] [address]. Please pull into the Emergency parking lot and stop at the ski tow operator richards. We offer free ski tow operator service for all our surgery patients, if you choose not to have ski tow operator parking we have additional parking across the street.You will enter the facility following the [facility] sign. Please stop at the office coordinator receptionist desk where you will be checked in by the staff. If you have any questions please call [phone]. Transportation after your procedure. You will need a friend or family member to drive you home after your procedure. Your roll off driver must be18 years of age or [...] You may shave your face or neck. [place] your teeth but do not swallow water. [...] or the day of surgery, please call [phone], or [phone] documented in this [facility] [employer] Phone: 1(665) 988-389910-05-2021 History of Present illness Narrative* Parvin Rogel RN - 06/15/2021 10:[address] Kamla gan, pt cleared for phase II * Alla Dickerson DO - 06/15/2021 9:42 AM EDT OB Resident Progress Note Patient may be discharged home once she has met criteria in the PACU. Please perfect serve or page DIRECTOR OF CURRICULUM AND INSTRUCTION resident listed below with any questions, concerns, or if patient has not met PACU discharge criteria in 2-3 hours. . Please page first. Alla Dickerson DO DIRECTOR OF CURRICULUM AND INSTRUCTION Resident PGY3 Pager: [phone] [facility] 06/15/2021, 9:42 AM documented in this encounterUniversity Hospitals St. [facility] CenterG[facility] Phone: [phone] Hospital Discharge instructions* Instructions* Alla Dickerson DO [...] cleared by your physician documented in this encounterUniversity Hospitals St. [facility] CenterG[facility] Phone: [phone]) 675-697809-01-2021 Hospital Discharge instructions* Instructions* aN Cabezas APRN - GERRY - 05/12/2021 Pre-operative Instructions Please arrive at [...] public transportation ALONE is not acceptable. -Your roll off driver must be 18 years of age [...] Day of Surgery/Procedure As a patient at [facility] you can expect quality medical and nursing care that is centered on your individual needs. Our goal is to make your surgical experience as comfortableas possible . Directions to the Surgery Center [facility] is located at [address] [place] [address]. Please pull into the Emergency/Surgery Center parking lot and stop at the [employer] richards. We offer free ski tow operator service for all our surgery patients, if you choose not to have ski tow operator parking we have additional parking across the [...] pharmacy bottles in a zip lock bag. [place] your teeth but do not swallow water. [...] DAY OF your surgery, you may call [phone] documented in this [email or web address] Phone: [phone]) [phone] History of Present illness Narrative* Mandy Baker [...] (coronary artery disease) CHF (congestive heart failure) ([facility]) COPD (chronic obstructive pulmonary disease) ([facility]) Diabetes mellitus ([facility]) Gastritis GERD (gastroesophageal reflux disease) History of stent insertion of renal artery Hx of blood clots Hyperlipidemia Hypertension IBS (irritable bowel syndrome) Pedal edema Pneumonia PVD (peripheral vascular disease) ([facility]) Thyroid disease Under care of team 05/12/2021 dr Perry [facility]-last visit apr 2021 Under care of team 05/12/2021 [facility] Varicose vein of leg Patient was evaluated in PAT & anesthesia guidelines were applied. NPO guidelines, medication instructions and scheduled arrival time were reviewed with patient. Anesthesia contacted: Yes I spoke with Dr. Rondon. Patient history and pertinent findings reviewed. Patient with history of CAD, CHF, stress test and cardiac echo (results not in Epic, from outside provider), cardiac stentx 3. Last saw communications executive in December 2020. On Eliquis and aspirin prescribed from her communications executive. Medical or cardiac clearance ordered: cardiac FERNY Andres CNP 05/12/21 2:43 PM documented in this encounterK[facility] Work Phone: evaluation + Plan noteGeneral Surgery [place] evaluation + Plan note Future Appointments Appointment Date:11/08/2022 02:00:00 PM Scheduled Provider:Iliana GAGNON MD Location:[facility] Appointment Type:[facility] 15 General Surgery [place] Evaluation + Plan note Future Appointments Appointment Date:11/22/2022 01:40:00 PM Scheduled Provider:Iliana GAGNON MD Location:[facility] Appointment Type:[place] [id number] General Surgery [place] evaluation note* Diagnosis Pre-op chest exam Pre-operative respiratory examination documented in this encounter [employer] Phone: [email or web address] note* Diagnosis S/p Partial vaginectomy with Ultrasonic Scalpel 06/15/21- 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, 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 documented in this encounter [employer] Phone: evaluation note* Diagnosis Pre-op chest exam Pre-operative respiratory examination documented in this encounter [employer] 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 documented in this encounter [employer] Phone: evaluation note* Diagnosis 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, estrogen receptor positive (HCC)- Primary documented in [facility]* Diagnosis 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 breast in female, estrogen receptor positive (HCC)- Primary documented in this encounter [facility]* Diagnosis 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, estrogen receptor positive (HCC)- Primary Claudication in peripheral vascular disease (HCC) Peripheral vascular disease, unspecified documented in this encounter [facility] noteNo assessment information availableKettering [facility] Work Phone: Evaluiijuo noteNo InformationNort [employer] Other evalujoldu note* Diagnosis 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, estrogen receptor positive (HCC)- Primary Rash Rash and other nonspecific skin eruption Other eczema Stage 3a chronic kidney disease (HCC) documented in this encounter [place] note* Diagnosis 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, estrogen receptor positive (HCC)- Primary Stage 3a chronic kidney disease (HCC) documented in this encounter [place] note* Diagnosis Onset Date Resolution Status Altered mental status acute Diabetes mellitus acute Edema of both lower legs acu te Inflammation acute Leg ulcer, left acute Leg wound, right acute Open wound of left thigh acu te Uses walker acute Varicose veins of both legs with edema acute [facility] Work Phone: Evaluation note* Diagnosis Onset Date Resolution Status Altered mental status acute Diabetes mellitus acute Edema of both lower legs acu te Inflammation acute Leg ulcer, left acute Leg wound, right acute Open wound of left thigh acu te PAD (peripheral artery disease) acute Uses walker acute Varicose veins of both legs with edema acute [facility] Work Phone: History general Narrative - Reported* Type Description Date Medical History DIABETES Medical History HTN Medical History ASTHMA Medical History 3 HEART STENT AND 1 LEG Medical History HYPERLIPIDEMIA Medical History HYPOTHYROID Medical History PAD Surgical History STENT PLACEMENTS Surgical History PSEUDO ANURYSM Surgical History BLADDER SUSPENSION Surgical History HYSTERECTOMY Surgical History RLE & RT RENAL DSA'S, ANGIOPLAS TIES & STENTING 04-25-2019 [employer] Other [employer] general Narrative - Reported* Type Description Date [...] History VAGINAL ABLASION OF CANCER CELL S [employer] Other Hospital course Narrative No data available for this section [facility] Discharge instructions No data available for this section General Surgery [place] Progress note No data available for this section General Surgery [place] Reason for referral (narrative) Referred by: Iliana GAGNON MD Referred by: Iliana GAGNON MD General Surgery [facility] Reason for referral (narrative)* Diagnostic Procedure Only (Routine) - Pending Review Specialty Diagnoses / Procedures Referred By Contac t Referred To Contact [facility] Diagnoses 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, estrogen receptor positive (HCC) Procedures MAGNO DIAGNOSTIC BILATERAL DIAGNOSTIC MAMMOGRAPHY COMPUTER-AIDED DETCJ BI Winnie Guzmán PA-C [address] [place] [address] [place] [address] [facility] [address] [place] [address] Referral ID Status Reason Start Date Expiration Date Visits Requested Visits Authorized [id number] Pending Review Auto-Generat ed Referral 3 07/19/2024 1 1 [facility] for visit Narrative* Auth/Cert Specialty Diagnoses / Procedures Referred By Jacinta fernandez Referred To Contact Diagnoses Vaginal dysplasia VAGINAL DYSPLASIA Procedures NV OFFICE/OUTPT VISIT,PROCEDURE ONLY NV COMPLETE REMOVAL OF VAGINA WALL NV CYSTOURETHROSCOPY CYSTOSCOPY, VAGINECTOMY Emma Garza MD [address] [facility] [address] [place] [address] [employer] [id number] [place] [address] Referral ID Status Reason Start Date Expiration Date Visits Re quested Visits Authorized [id number] 1 1 [employer] Phone: Summary Purpose Family History No Family History Records Found Relationship Condition Age at Onset Recorded Date/T josephine father Unknown mother Unknown Advance Directives No Advanced Directives Records FoundLatest Code Status on File Code Status Date Activated Date Inactivated Comments Full Code 06/28/2022 6:57 AM Documents on File Type Date Recorded Patient Receiving Associate Store Expl anation Advance Directive(s) 01/16/2017 3:59 PM Documents on File Type Date Recorded Patient Receiving Associate Store Expl anation Advance Directive(s) 01/16/2017 3:59 PM [...] Pre-op chest exam Procedures EKG 12 lead Latonia Burks PA-C [address] [place] [address] Specialty Diagnoses / Procedures Referred By Contac t Referred To Contact Cardiology Diagnoses Pre-op chest exam Procedures EKG 12 lead Latonia Burks PA-C [address] [place] [address] Referral ID Status Reason Start Date Expiration Date Visits Re quested Visits Authorized [id number] Open 11/22/2021 11/22/2022 1 1 Specialty Diagnoses / Procedures Referred By Contac t Referred To Contact Vascular Surgery Diagnoses Claudication in peripheral vascular disease (HCC) Procedures CONSULT TO VASCULAR SURGERY OFFICE/OUTPATIENT [facility] 60-74 MINUTES Wallace Stone MD [address] [place] [address] Referral ID Status Reason Start Date Expiration Date Visits Requested Visits Authorized [id number] Authorized PCP Requested Referral 11/16/2022 11/09/2023 1 1 Specialty Diagnoses / Procedures Referred By Contac t Referred To Contact Dermatology Diagnoses Rash Other eczema Procedures CONSULT TO DERMATOLOGY OFFICE/OUTPATIENT [facility] 60-74 MINUTES Wallace Stone MD [address] [place] [address] Referral ID Status Reason Start Date Expiration Date Visits Requested Visits Authorized [id number] Authorized PCP Requested Referral 02/14/2023 02/14/2024 1 1 Chief Complaint and Reason for Visit Chief Complaint Right Leg Swelling Chief Complaint Open Wound pain bi legs i70.238 i70.248 Reason for Visit Altered mental statu s Diabetes mellitus Edema of both lower legs Inflammation Leg ulcer, left Leg wound, right Open wound of left thigh Uses walker Varicose veins of both legs with edema Chief Complaint pain bi legs i70.238 i70.248 Open Wound Reason for Visit Altered mental statu s Diabetes mellitus Edema of both lower legs Inflammation Leg ulcer, left Leg wound, right Open wound of left thigh PAD (peripheral artery disease) Uses walker Varicose veins of both legs with edema Chief Complaint pain bi legs i70.238 i70.248 Open Wound F/U PAD Reason for Visit Altered mental statu s Diabetes mellitus Edema of both lower legs Inflammation Leg ulcer, left Leg wound, right Open wound of left thigh PAD (peripheral artery disease) Uses walker Varicose veins of both legs with edema Additional Source Comments INFORMATION SOURCE (unrecogn ized section and content) DATE CREATED AUTHOR 02/05/2021 [facility] DATE CREATED AUTHOR AUTHOR'S ORGANIZ ATION 01/22/2023 [facility] DATE CREATED AUTHOR AUTHOR'S ORGANIZ ATION 03/20/2023 [facility] DATE CREATED AUTHOR AUTHOR'S ORGANIZ ATION 06/22/2023 [facility] DATE CREATED AUTHOR AUTHOR'S ORGANIZ ATION 06/23/2023 [facility] DATE CREATED AUTHOR AUTHOR'S ORGANIZ ATION 07/13/2023 [facility] DATE CREATED AUTHOR AUTHOR'S ORGANIZ ATION 05/03/2024 [facility] Reason for Visit (unrecogniz ed section and content) Status Reason Specialty Diagnoses / Procedures Re ferred By Contact Referred To Contact Diagnoses 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 Procedures NV REMOVE VAGINA WALL, PARTIAL NV COLPOSCOPY,CERVIX W/ADJ VAGINA PARTICAL VAGINECTOMY WITH ULTRASONIC SCAPEL VAGINAL COLPOSCOPY WITH MICROSCOPE Kin Abarca MD [address] [facility] [address] [facility] [place] [address] [facility] Specialty Diagnoses / Procedures Referred By Contac t Referred To Contact Diagnoses Vaginal dysplasia VAGINAL DYSPLASIA Procedures NV OFFICE/OUTPT VISIT,PROCEDURE ONLY NV DESTRUCT,VAGINAL LESION(S),SIMPLE CO2 LASER VAPORIZATION OF LESIONS ([facility] CONF# [id number] - JEREMIAS) Emma Garza MD [address] [facility] [address] [place] [address] [facility] [address] [place] [address] Referral ID Status Reason Start Date Expiration Date Visits Re quested Visits Authorized [id number] 1 1 Reason Comments Care Coordination Surgery [...] 25 g 1 06/28/2022 bacitracin-polymyxin b (POLYSPORIN) [id number] UNIT/GM ointment Apply topically 2 times daily. [...] g 0 06/28/2022 06/28/2022 bacitracin-polymyxin b (POLYSPORIN) [id number] UNIT/GM ointment Apply topically 2 times daily. [...] 0929, Intra-op 0929 (Given - Provid er: iKn Abarca MD - Comment: GIVEN TO BACK TABLE, THE REST SENT WITH PATIENT) sodium chloride 0.9 % irrigation (COMPLETED) CONTINUOUS PRN, Starting on Mon06/15/21 at 0927, Intra-op 0925 (New Bag - Prov ider: Kin Abarca MD - Comment: BACK TABLE)0927 (New Bag - Provider: Kin Abarca MD [...] Mon06/28/22 at 0915, Pre-op (day of surgery) 0901 (New Bag - Prov ider: Jessica Robledo RN)0907 (NoRateChange - Provider: FERNY Moses CRNA)0941 (Paused - Provider: FERNY Moses CRNA - Comment: Switch to gravity)0942 (Restarted - Provider: FERNY Moses MASTER TECHNICIAN) PRN Medication Order 06/26/2022 06/27/2022 06/28/2022 0.9 [...] dose, Starting on Mon06/28/22 at 1039, Until 06/29/22 at 1039, Nausea, PACU only sodium chloride [...] Care Teams (unrecognized sec tion and content) Team Status: Active Member Role Status Dates Mateus Perry MD Primary Care Provider Active Team Status: Inactive Member Role Status Dates Mateus Perry MD Primary Care Provider Active Start: April 09, 2024 End: April 09, 2024 Janell Mathews APRN Attending Provider Active St art: April 09, 2024 End: April 09, 2024 Team Status: Inactive Member Role Status Dates Mateus Perry MD Primary Care Provider Active Start: April 24, 2024 End: April 24, 2024 Janell Mathews APRN Attending Provider Active St art: April 24, 2024 End: April 24, 2024 Team Status: Active Member Role Status Dates Mateus Perry MD Primary Care Provider Active Start: March 26, 2024 Janell Mathews APRN Attending Provider Active St art: March 26, 2024 Reporting Manager Relationship Specialty Start Date End Date Mateus Perry MD [address] [place] [address] PCP - General Family Medicine 03/04/21 Reporting Manager Relationship Specialty Start Date End Date Mateus Perry MD [address] [place] [address] PCP - General Family Medicine 03/04/21 Reporting Manager Relationship Specialty Start Date End Date Mateus Perry MD [address] [place] [address] PCP - General Family Medicine 03/04/21 Reporting Manager Relationship Specialty Start Date End Date Mateus Perry MD [address] [place] [address] PCP - General Family Medicine 03/04/21 Reporting Manager Relationship Specialty Start Date End Date Mateus Perry MD PCP - General Family Medicine 01/05/17 Reporting Manager Relationship Specialty Start Date End Date Mateus Perry MD PCP - General Family Medicine 01/05/17 Reporting Manager Relationship Specialty Start Date End Date Mateus Perry MD PCP - General Family Medicine 01/05/17 Reporting Manager Relationship Specialty Start Date End Date Mateus Perry MD PCP - General Family Medicine 01/05/17 Reporting Manager Relationship Specialty Start Date End Date Mateus Perry MD PCP - General Family Medicine 01/05/17 Reporting Manager Relationship Specialty Start Date End Date Mateus Perry MD PCP - General Family Medicine 01/05/17 Reporting Manager Relationship Specialty Start Date End Date Mateus Perry MD [address] [place] [address] PCP - General Family Medicine 03/04/21 Team Status: Inactive Member Role Status Dates Mateus Perry MD Primary Care Provider Active Christiano Gonzales MD Attending Provider Active Reporting Manager Relationship Specialty Start Date End Date Mateus Perry MD PCP - General Family Medicine 01/05/17 Reporting Manager Relationship Specialty Start Date End Date Mateus Perry MD PCP - General Family Medicine 01/05/17 Team Status: Inactive Member Role Status Dates Mateus Perry MD Primary Care Provider Active Start: May 01, 2024 End: May 01, 2024 Christiano Gonzales MD Attending Provider Active Start: May 01, 2024 End: May 01, 2024 Source Comments (unrecognize d section and content) In the event this informatio n is protected by the Federal Confidentiality of Alcohol and Drug Abuse Patient Records regulations: The Federal rules restrict any use of the information to criminally investigate or prosecute any alcohol or drug abuse patient.[facility] the event this information is protected by the Federal Confidentiality of Alcohol and Drug Abuse Patient Records regulations: The Federal rules restrict any use of the information to criminally investigate or prosecute any alcohol or drug abuse patient.[facility] the event this information is protected by the Federal Confidentiality of Alcohol and Drug Abuse Patient Records regulations: The Federal rules restrict any use of the information to criminally investigate or prosecute any alcohol or drug abuse patient.[facility] the event this information is protected by the Federal Confidentiality of Alcohol and Drug Abuse Patient Records regulations: The Federal rules restrict any use of the information to criminally investigate or prosecute any alcohol or drug abuse patient.[facility] the event this information is protected by the Federal Confidentiality of Alcohol and Drug Abuse Patient Records regulations: The Federal rules restrict any use of the information to criminally investigate or prosecute any alcohol or drug abuse patient.[facility] the event this information is protected by the Federal Confidentiality of Alcohol and Drug Abuse Patient Records regulations: The Federal rules restrict any use of the information to criminally investigate or prosecute any alcohol or drug abuse patient.[facility] Center[facility] the event this information is protected by the Federal Confidentiality of Alcohol and Drug Abuse Patient Records regulations: The Federal rules restrict any use of the information to criminally investigate or prosecute any alcohol or drug abuse patient.[facility] the event this information is protected by the Federal Confidentiality of Alcohol and Drug Abuse Patient Records regulations: The Federal rules restrict any use of the information to criminally investigate or prosecute any alcohol or drug abuse patient.[facility] Goals (unrecognized section and content) Goals may [...] BE BASED ON THE PRIMARY CLINICAL RECORDS. [employer] [facility]. provides no warranty or guarantee of the accuracy or completeness of information in this document.
[2024-05-09 08:07] LABS: Anion Gap 14.2; BUN Creatinine Ratio 45.1; Calcium 10.2 mg/dL (8.5-10.1); Carbon Dioxide 26.9 mmol/L (21.0-32.0); Chloride 99 mmol/L (98-107); Estimated GFR (African America 34 (>=60); Estimated GFR (Non-African Ame 28 (>=60); Glucose 142 mg/dL (74-106); Potassium 5.1 mmol/L (3.5-5.1); Sodium 135 mmol/L (136-145)
== END 2024-05-09 07:32 | disposition home or self-care (01) ==
LOC: LAB 07:32
PROVIDERS: PCP Family Medicine; Visit Provider Family Medicine
DX: R94.4 Abnormal results of kidney function studies (principal)
CPT/HCPCS: 36415; 80048

== ENCOUNTER 2024-05-16 17:09 | Outpatient (OUT) | payer MEDICARE, OTHER, SELFPAY ==
--- NOTE | 2024-05-16 17:14 | US_ITS ---
The [address] [address] Patient Name: OSCAR MCLEOD MRN: [id number] date: 1940 Sex: F Assigned Patient Location: [place] Current Patient Location: [place] Accession/Order Number: [id number] Exam Date: 05/16/2024 17:18 Report Date: 05/16/2024 18:07 At the request of: MATEUS PERRY Procedure: US bladder EXAM: US bladder HISTORY: URINARY RETENTION R33.9 COMPARISON: None. TECHNIQUE: Multiple sonographic images of the urinary bladder were obtained. The study was supplemented with Doppler. FINDINGS: The urinary bladder is initially mildly distended with a prevoid volume of 57 mL. The bladder torrez are smooth. There is no thickening of the bladder wall. Bilateral ureteral jets are visualized. The patient voided spontaneously with a post void volume of 9 mL, which is normal. US/US bladder IMPRESSION: Although the urinary bladder is not very well distended, it appears unremarkable. No abnormality seen in the bladder wall. The post void volume is 9 mL, which is normal. Electronically authenticated by: MIGUELITO TELLEZ Date: 05/16/2024 18:07
== END 2024-05-16 17:10 | disposition home or self-care (01) ==
LOC: US 17:10
PROVIDERS: PCP Family Medicine; Visit Provider Family Medicine
DX: R33.9 Retention of urine, unspecified (principal)
CPT/HCPCS: 76857

== ENCOUNTER 2024-06-04 12:48 | Outpatient (OUT) | payer MEDICARE, OTHER, SELFPAY ==
--- NOTE | 2024-06-04 13:00 | CA_ITS ---
Patient Name: OSCAR MCLEOD MR#: [id number] : 1940 Exam Date: 06/04/2024 Ordering Doctor: CHERYL FARIA ECHOCARDIOGRAM REPORT PROCEDURE: CA ECHO DOPPLER COMPLETE INDICATIONS: Heart failure with reduced EF COMPARISON: None. DESCRIPTION: COMPLETE ECHOCARDIOGRAM Real-time transthoracic echocardiography with 2D, M-mode, spectral and color flow Doppler performed. QUALITY: Technical quality was good. LEFT VENTRICLE: Normal chamber size. Normal left ventricular wall thickness. Systolic function is moderately to severely reduced. There is global hypokinesis with abnormal septal motion likely related to bundle branch block. LV EF: Estimated left ventricular ejection fraction is moderate to severely reduced at 30-35% DIASTOLIC: Not adequately assessed due to heart rhythm. ATRIAL SEPTUM: LEFT ATRIUM: Severe dilatation. RIGHT ATRIUM: Severe dilatation. RIGHT VENTRICLE: Normal chamber size. Normal right ventricular systolic function. TRICUSPID VALVE: Normal mobility and thickness. No stenosis with mild regurgitation. No evidence of pulmonary hypertension. RVSP is 26 mmHg. MITRAL VALVE: Mildly thickened with normal mobility. No evidence of mitral valve stenosis. Mitral annular calcification. Moderate mitral regurgitation. AORTIC VALVE: Normal trileaflet appearance. Mildly calcified aortic valve. Mildly diminished mobility. No significant aortic valve stenosis. Trivial aortic regurgitation. AORTIC ROOT: Normal diameter and appearance. PULMONIC VALVE: Normal thickness and mobility. No stenosis. No regurgitation. PERICARDIUM: No evidence of pericardial effusion. IVC: Normal size with partial collapse. PLEURA: CONCLUSION: 1. The left ventricle is normal in size and exhibits moderately to severely reduced systolic function with global hypokinesis. Estimated LVEF is 30 to 35%. 2. Normal right ventricular size and systolic function. 3. Moderate mitral regurgitation. 4. Mild tricuspid regurgitation. 5. Normal right-sided pressures. Adult Echocardiography Procedure Report Left Ventricle LVEDD (3.7 - 5.6 cm): 5.12 cm LVESD (2.2 - 4.0 cm): 4.49 cm LVIVS thickness (0.6 - 1.2 cm): 1.00 cm LVPW thickness (0.5 - 1.0 cm): 0.85 cm e': 0.09 m/s E - e': 11.75 LVOT Max Gradient: 1.78 mm[Hg] LVOT Area (cm2): 0.67 m/s Peak Velocity (LVOT): 0.67 m/s Mean Velocity (LVOT): 0.49 m/s LVOT Diameter 1.86 cm Left Ventricular Ejection Fraction: 30-35 % Left Atrium LA Volume Index (2D A2C): 61.96 ml/m2 Left Atrium Systolic Dimension: 3.68 cm Mitral Valve Mitral Valve E-Wave Peak Velocity: 1.03 m/s Right Ventricle RV Internal Diastolic Dimension: 3.54 cm Aorta AO Root Diam: 2.97 cm Ascending Ao Diam: 2.64 cm Aortic Valve AoV Area (Peak Ricky): 1.09 cm2, 1.06 cm2 AoV Area (VTI): 1.14 cm2, 1.16 cm2 Peak Velocity(Antegrade Flow): 1.71 m/s, 1.63 m/s Peak Gradient(Antegrade Flow): 11.75 mm[Hg], 10.57 mm[Hg] Mean Velocity(Antegrade Flow): 1.18 m/s, 1.14 m/s Mean Gradient(Antegrade Flow): 6.40 mm[Hg], 5.96 mm[Hg] Velocity Time Integral: 32.40 cm, 33.54 cm Tricuspid Valve Peak Velocity (Regurgitant Flow): 2.39 m/s, 2.26 m/s, 2.42 m/s Pulmonic Valve Mean Gradient: 1.74 mm[Hg] Mean Velocity: 0.61 m/s Peak Velocity: 0.97 m/s, 0.95 m/s Peak Gradient: 3.74 mm[Hg], 3.58 mm[Hg] Right Atrium Right Atrium Systolic Pressure: 62.78 ml, 62.78 ml Dictated by: Bertram Keyes M.D. on 06/06/2024 at 17:18 Approved by: Bertram Keyes M.D. on 06/06/2024 at 17:27
== END 2024-06-04 12:49 | disposition home or self-care (01) ==
LOC: CARD 12:48
PROVIDERS: PCP Family Medicine; Visit Provider Nurse Practitioner
DX: I11.0 Hypertensive heart disease with heart failure (principal); I50.42 Chronic combined systolic (congestive) and diastolic (congestive) heart failure; I43 Cardiomyopathy in diseases classified elsewhere; I48.0 Paroxysmal atrial fibrillation
CPT/HCPCS: 93306; 93356

== ENCOUNTER 2024-06-12 12:42 | Outpatient (OUT) | payer MEDICARE, OTHER, SELFPAY ==
--- NOTE | 2024-06-12 12:45 | MM_ITS ---
Patient Name: OSCAR MCLEOD MR#: [id number] : 1940 Exam Date: 06/12/2024 Ordering Doctor: DR Gil Blake . RADIOLOGY REPORT PROCEDURE: MM SCREENING MAMMO BI COMPARISON: MG MAMM SCREEN 3D DAVID CAD, 07/19/2022. MG MAMM RT DIAG FU, 08/08/2022. MAMMO POST BIOPSY RIGHT, 08/19/2022. INDICATIONS: Screening Calculator Name NCI Breast Cancer Risk Assessment Tool 5 Year Breast Cancer Risk 10.50% Lifetime Breast Cancer Risk 14.70% Personal Breast Cancer No Personal Ovarian Cancer No Treatments None Family Cancers Sister with breast cancer at age 77; Daughter with breast cancer at age 35; Daughter with uterine cancer at age 37. LOCATION: [facility] BREAST COMPOSITION: There are scattered areas of fibroglandular density. FINDINGS: DIAGNOSTIC CATEGORY 2--BENIGN FINDING: Scattered benign-appearing calcifications are present. RIGHT BREAST: Multiple surgical clips upper outer quadrant and axillary tail from interval surgery. Some mild focal asymmetry in the region of the clips with no focal mass or architectural distortion this likely represents post procedural changes. LEFT BREAST: No significant suspicious finding. RECOMMENDATIONS: ROUTINE MAMMOGRAM AND CLINICAL EVALUATION IN 12 MONTHS. PLEASE NOTE: A NORMAL MAMMOGRAM DOES NOT EXCLUDE THE POSSIBILITY OF BREAST CANCER. A CLINICALLY SUSPICIOUS PALPABLE LUMP SHOULD BE BIOPSIED. Dictated by: Pancho Bauman MD on 06/12/2024 at 15:20 Approved by: Pancho Bauman MD on 06/12/2024 at 15:34
== END 2024-06-12 12:43 | disposition home or self-care (01) ==
LOC: MAMMO 12:43
PROVIDERS: PCP Family Medicine; Visit Provider Family Medicine
DX: Z12.31 Encounter for screening mammogram for malignant neoplasm of breast (principal); Z80.3 Family history of malignant neoplasm of breast; Z80.8 Family history of malignant neoplasm of other organs or systems
CPT/HCPCS: 77067

== ENCOUNTER 2024-06-26 06:23 | Observation (INO) | payer MEDICARE, OTHER, SELFPAY ==
[2024-06-26] VITALS (27 sets, daily range): BP systolic 113–138; BP diastolic 62–86; PULSE 74–99; TEMP 36.3–36.8; O2SAT 92–95; BMI 28.3; BMI 28.5
--- NOTE | 2024-06-26 06:47 | PC.NURSE ---
Patient reports having diarrhea this morning with several large clots. Noted smear of maroon color in brief.
--- OUTSIDE RECORDS SUMMARY | 2024-06-26 06:48 | XMS_ITS | CCD ---
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 Name Role Phone Mateus Perry MD Primary Care Provider Mateus Perry Primary Care Physician Mateus Perry MD Primary Care Provider [phone] Mateus Perry MD Primary Care Provider [phone] Mateus Perry Primary Care Provider [phone] MD Christiano Gonzales Attending Provider [phone] Christiano Gonzales Unavailable Millie Storm Unavailable SONALI MCKINNEY Admitting Unavailable SONALI MCKINNEY Attending Unavailable TAWNYY ., DR IGNACIO Primary Care Unavailable SONALI [...] Unavailable ZIEBER, DR ALFONSO Ramirez Consulting Unavailable NILL ., [...] Admitting Unavailable HANK, SONALI Attending Unavailable HANK, SNOALI Consulting Unavailable HOY ., DR IGNACIO Admitting Unavailable HOY ., DR IGNACIO Attending Unavailable HOY ., DR IGNACIO Primary Care Unavailable HOY ., DR IGNACIO Consulting Unavailable GILMANTON, DR JUDSON Plunkett Consulting Unavailable MISC, DR [...] HOY ., DR IGNACIO Primary Care Unavailable GILMANTON, DR JUDSON Plunkett Consulting Unavailable NILL ., DR BARRIENTOS Consulting Unavailable KRISTIN JAQUEZ Consulting Unavailable SHARP, CARLOS Consulting Unavailable LEANA HERNANDEZ Unavailable HOY ., DR IGNACIO Admitting Unavailable HOY ., DR IGNACIO Attending Unavailable HOY ., DR IGNACIO Primary Care Unavailable HOY ., DR IGNACIO Consulting Unavailable HOY ., DR IGNACIO Admitting Unavailable HOY ., DR IGNACIO Attending Unavailable HOY ., DR IGNACIO Primary Care Unavailable HOY ., DR IGNACIO Consulting Unavailable HOY ., DR GINACIO Admitting Unavailable HOY ., DR IGNACIO Attending Unavailable HOY ., DR IGNACIO Primary Care Unavailable HOY ., DR IGNACIO Consulting Unavailable HOY ., DR IGNACIO Admitting Unavailable HOY ., DR IGNACIO Attending Unavailable HOY ., DR IGNACIO Primary Care Unavailable HOY ., DR IGNACIO Consulting Unavailable GILMANTON, DR JUDSON Plunkett Consulting Unavailable HOY ., DR IGNACIO Primary Care Unavailable MIK HODGES Admitting Unavailable MIK HODGES Attending Unavailable MIK HODGES Consulting Unavailable HILL BAILON Unavailable NILL ., DR BARRIENTOS Admitting Unavailable [...] Unavailable HOY ., DR IGNACIO Consulting Unavailable KARAMNAMU, WALLACE Attending Unavailable HOY, MATEUS M Primary Care Unavailable MARCIN SHAH Attending Unavailable NILL, ILIANA R Referring Unavailable HOY, MATEUS M Primary Care Unavailable WALLACE STONE Attending Unavailable NILL, ILIANA R Referring Unavailable [...] Referring Unavailable NILL, Iliana R Attending Unavailable LUTMAN V, EMMA Admitting Unavailabl e LUTMAN V, EMMA Attending Unavailabl e HOY, MATEUS M Primary Care Unavailable BARBARA BRUSHYSSA Referring Unavailable MATEUS PERRY Primary Care Unavailable MATEUS PERRY Primary Care Unavailable LATONIA BRUSH Referring Unavailable MD Mateus Perry Primary Care Provider [phone] FERNY Mathews Attending Provider [phone] MD Mateus Perry Primary Care Provider [phone] FERNY Mathews Attending Provider [phone] Mateus Perry Primary Care Unavailable Janell Mathews Admitting Unavailable Janell Mathews Attending Unavailable Mateus Perry Primary Care Unavailable Janell Mathews Admitting Unavailable Janell Mathews Attending Unavailable JOSE MARIA KEYES Attending Unavailable CHERYL FARIA Attending Unavailable PEYMAN HENSLEY Attending Unavailable Mateus Perry MD Primary Care Provider [phone] Allergies Allergy Classification Reported Allergen(s) Allergy Type Date of Onset Reaction(s) Facility (18 sources) Acetaminophen / oxyCODONE; 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: [OXYCODONE-ACETAM INOPHEN] Drug Allergy 3 Other (See Comments), Intolerance, GI Upset [facility] (20 sources) Ciprofloxacin; 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: [ciprofloxacin] Drug Allergy 8 Hives, Urticaria (disorder), Other: See Comments [facility] (20 sources) oxyCODONE; 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: [oxycodone] Drug Allergy 9 Rash, Itching (finding) [facility] (19 sources) cefdinir; 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: [cefdinir] Drug Allergy 3 Vomiting (disorder), Other: See Comments, Vomiting, Other (See Comments) [facility] (10 sources) traMADol; 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: [TRAMADOL] Drug Allergy 3 Mental Status Change, Other (See Comments) [facility] (1 source) Cefuroxime Drug Allergy 2 [facility] Work Phone: (5 sources) Acetaminophen; 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: [acetaminophen] Drug Allergy 9 [facility] (2 sources) Acetaminophen / oxyCODONE Drug Allergy 3 [facility] (1 source) Cefuroxime Drug Allergy 2 [facility] (2 sources) Ciprofloxacin Drug Allergy [facility] (1 source) cefdinir Drug Allergy 4 [facility] (1 source) Ciprofloxacin Drug Allergy 4 [facility] (1 source) oxyCODONE Drug Allergy 4 [facility] (1 source) traMADol Drug Allergy 4 [facility] Medications Current Medications Medication Drug [...] INHALATION Q6H April 25, 2019 12:00am albuterol (2.5 M G/3ML) 0.083% nebulizer solution USE 1 VIAL IN NEBULIZER 4 TIMES DAILY NEEDED Active albuterol (PROVE NTIL) 2.5 mg /3 mL [...] 2024 12:00am anastrozole 1 mg oral tablet (14 sources) Aromatase Inhibitor Start: 3 End: 4 take 1 mg by mouth once daily Anastrozole Active 1 MG PO Daily November 29, 2022 12:00am Anastrozole Acti ve Comment on above: Take 1 tablet by amna th once daily. apixaban 5 mg oral tablet (20 sources) Factor Xa Inhibitor Start: 04-25-2019 take 1 tablet by mouth at bedtime Eliquis 5 MG tablet TAKE 1 TABLET BY MOUTH IN THE MORNING AND AT BEDTIME 04/08/2024 Active take 2 tablets by mouth twice da [...] Polymyxin-class Antibacterial Start: End: bacitracin-polymyxin b (POLYSPORIN) [id number] UNIT/GM ointment Apply topically 2 times daily. [...] take 1 capsule by mouth twice daily Chittenango 3 1000 MG CAPS Take 1,000 mg by mouth 2 times daily 0 Active End: 05-12-2021 take 1 capsule by mouth once daily Chittenango-3 Fatty Acids (FISH OIL OMEGA-3) 1000 MG CAPS Take 1,000 mg by mouth daily 0 05/12/2021 Discontinued docusate sodium 50 mg / sennosides, retirement 8.6 mg oral tablet (2 sources) Start: 06-28-2022 End: 07-28-2022 take 8.6-50 mg by mouth once as needed senna-docusate (PERICOLACE) 8.6-50 MG per tablet Take 1 tablet by mouth 2 times daily as needed for Constipation 60 tablet 1 06/28/2022 06/28/2022 Discontinued (REORDER) empagliflozin 10 mg oral tablet (5 sources) Sodium-Glucose Cotransporter 2 Inhibitor Start: 12-11-2023 take 10 mg by mouth in the morning Jardiance 10 MG Take 10 mg by mouth in the morning. 12/11/2023 Active febuxostat 40 mg oral tablet (6 sources) Xanthine Oxidase Inhibitor Start: 06-09-2023 take 40 mg by mouth once daily Febuxostat Active 40 MG PO Daily December 11, 2023 12:00am Comment on above: Take 1 tablet by amna th every afternoon. 2 ml fentaNYL 0.05 mg/ml injection (6 sources) Opioid Agonist Start: 06-28-2022 fentaNYL (SUBLIMAZE) injection 50 mcg Start: 06-28-2022 fentaNYL (SUBL IMAZE) injection 25 mcg Start: 12-13-2021 fentaNYL (SUBL IMAZE) injection 50 mcg Start: 12-13-2021 fentaNYL (SUBL IMAZE) injection 25 mcg ferrous sulfate 325 mg oral tablet (5 sources) Start: 12-11-2023 take 1 tablet by mouth in the morning ferrous sulfate 325 (65 Fe) MG tablet Take 325 mg by mouth in the morning and 325 mg in the evening. 04/19/2024 Active Fish Oils (10 sources) Start: 09-02-2022 take [...] 12:00am Start: 09-02-2022 take 1 tablet by amna th twice daily Lasix 20 mg Tab 20 mg = 1 tab(s), Oral, BID, Refills(s) 0 Start Date: 09/02/22 Status: Ordered take 2 tablets by mo uth twice daily furosemide (LASIX) 20 mg tablet Take 40 mg by mouth twice daily. 0 Active Lasix Active take 1 tablet by amna th every other day furosemide (LASIX) 40 [...] 25, 2019 12:00am take 1 tablet by amna th every twenty-four hours Glimepiride 4 MG [...] 100 unit/mL solution (3 sources) Start: 12-11-19 Insulin Lispro (Humalog U-100 Insulin) 100 unit/mL [...] 25, 2019 12:00am take 1 tablet by amna th twice daily, then take 1 tablet [...] on above: Take 125 mcg by mout once daily. lidocaine 0.05 mg/mg topical ointment [...] 12:00am Start: 09-02-2022 take 2 tablets by [facility] once daily Cytomel 5 mcg Tab 10 mcg = 2 tab(s), Oral, Daily, Refills(s) 0 Start Date: 09/02/22 Status: Ordered take 2 tablets by [facility] once daily liothyronine (Cytomel) 5 MCG tablet Take 2 tablets by mouth Daily Active take 1 tablet by [facility] every twenty-four hours Liothyronine Sodium 5 MCG [...] sources) Polyene Antifungal Start: 06-28-2022 nystatin (MYCOSTATIN) [id number] UNIT/GM powder Apply 3 times daily. 60 g 10 06/28/2022 Active nystatin (MYCOST ATIN) 309016 UNIT/GM powder Apply topically 2 times daily as needed 0 Active Npowi-0f-Gdh-Epa-Fish Oil (Chittenango-3 Fish Oil) 300-1,000 mg Capsule (4 sources) Start: 04-25-2019 Veaen-7h-Mil-Epa-Fish Oil (Chittenango-3 Fish Oil) 300-1,000 mg Capsule Active 2 [...] tablet Start: 12-09-2021 take 1 tablet by amna th once daily levoFLOXacin (LEVAQUIN) 500 MG tablet TAKE 1 TABLET BY MOUTH EVERY DAY 0 12/09/2021 Active take 1 tablet by amna th once daily LEVOFLOXACIN PO Take 1 [...] by mouth 4 times daily 0 Active Tawgc-3-PSO-EPA-Fish Oil 1,000 mg (120 mg-180 mg) cap (8 sources) take 1 capsule by mouth twice daily Vroiy-3-SXF-EPA-Fish Oil 1,000 mg (120 mg-180 mg) cap [...] Comment on above: TAKE 1 TABLET BY [facility] THREE TIMES A DAY DO NOT CRUSH, [...] Problem Classification Problem Date Documented Date Episodic/Chronic Acquired foot deformities (2 sources) Hallux valgus (acquired), left foot; 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: [Hallux valgus (acquired)] 06-20-2024 Chronic Acquired foot deformities (2 sources) Acquired deformity of toe of left foot; 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: [Acquired deformities of toe(s), unspecified, left foot] 06-20-2024 Episodic Acute bronchitis (1 source) Acute bronchitis, unspecified; [...] 11-03-2022 09-02-2022 Chronic Chronic ulcer of skin (9 sources) Ulcer of lower extremity; 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: [Non-pressure [...] 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: [Coronary atherosclerosis] Onset: 01-16-2017 09-02-2022 Chronic Coronary atherosclerosis and other heart disease (3 sources) Presence of coronary angioplasty implant and graft; 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: [PRESENCE COR ANGPLSTY IMPLANT AND GRAFT] Onset: 09-13-2022 Episodic Diabetes mellitus with complications (8 sources) Type 2 diabetes mellitus with diabetic [...] Chronic Hypertension with complications and secondary hypertension (4 sources) Hypertensive heart and chronic kidney disease with heart failure and stage 1 through stage 4 chronic kidney disease, or unspecified chronic kidney disease; 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: [Hypertensive heart disease with heart failure] Onset: 08-16-2022 Chronic Mycoses (2 sources) Pain in toe; 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: [Tinea unguium] 06-20-2024 Episodic Occlusion or stenosis of precerebral arteries (12 [...] sources) Long-term current use of anticoagulant; 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: [penitentiary (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] Onset: 09-09-2022 Episodic Other aftercare (1 source) 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; 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: [CIRCUIT COURT JUDGE CURRNT USE ANTICOAGULANTS] Onset: 11-03-2022 Episodic Other aftercare (1 source) penitentiary (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 oral hypoglycemic drugs; 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: [SENIOR CARE USE ORAL HYPOGLYCEMIC DX] Onset: 11-03-2022 Episodic Other aftercare (1 source) 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; 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: [OTH SENIOR CARE CURRENT DRUG THERAPY] Onset: 11-03-2022 Episodic Other bone disease and musculoskeletal deformities (4 sources) Osteopenia 09-02-2022 Episodic Other circulatory disease (2 sources) Other hypotension; 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: [Other hypotension] Onset: 06-12-2024 Episodic Other connective tissue disease (3 sources) Other specified soft tissue disorders Episodic Other connective tissue disease (1 source) Pain in right lower leg Episodic Other connective tissue disease (2 sources) Repeated falls; 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: [Repeated falls] Onset: 06-12-2024 Episodic Other diseases of veins and lymphatics (2 sources) Vascular insufficiency; 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: [Venous insufficiency (chronic) (peripheral)] 06-20-2024 Episodic Other female genital disorders (3 sources) Dysplasia of vagina; 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, unspecified] Episodic Other nervous system disorders (2 sources) Other abnormalities of gait and mobility; 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: [Other abnormalities of gait and mobility] Onset: 06-12-2024 Episodic Other nutritional; endocrine; and metabolic disorders (4 sources) Body mass index 30+ - obesity 09-09-2022 Chronic Other skin disorders (1 source) Localized swelling, mass and lump, lower limb, bilateral; 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: [LOC SWELL MASS LUMP LOW LIMB DAVID] Onset: 11-06-2022 Episodic Other skin disorders (1 source) Eruption; 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: [Rash and other nonspecific skin eruption] Episodic Olga-; endo-; and myocarditis; cardiomyopathy (except that caused by tuberculosis or sexually transmitted disease) (2 sources) Cardiomyopathy in diseases classified elsewhere; 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: [Cardiomyopathy in diseases classified elsewhere] Onset: 05-27-2024 Chronic Peripheral and visceral atherosclerosis (20 sources) Atherosclerosis [...] (6 sources) Inflammatory disorder; 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: [Inflammation] 12-11-2023 Unclassified (2 sources) Longstanding persistent atrial fibrillation; 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: [Longstanding persistent atrial fibrillation] Onset: 09-13-2022 Urinary tract infections (4 sources) Urinary tract [...] of vagina (HGSIL)] Onset: 04-13-2021 04-13-2021 Episodic Deficiency and other anemia (1 source) [...] Onset: 08-13-2022 Episodic Other aftercare (1 source) 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; 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: [SENIOR CARE CURRENT USE OF ASPIRIN] Onset: 08-25-2022 Episodic [...] Test Name Value Interpretation Reference Range Facility Office Visiton 06-12-2024 Follow-up visit [id number] Harman Mcleod 1940 Date Provider Department Center 06/12/2024 JOSE MARIA GARCIA CORI Orozco Family History Problem Relation Age of Onset Stroke Mother Coronary artery disease Father Heart attack Father Family Status - Relation Status Age at Mother Father Level of Service:55027 CO OFFICE/OUTPATIENT ESTABLISHED HIGH MDM 40 MIN Normal [facility] 36on 06-10-2024 36 Pt informed hoys office updated Normal [facility] 37on 05-27-2024 37 Increase Zocor/simvastatin to 40 mg daily- from 20 mg for better cholesterol control Have blood drawn in 2-3 months for liver function and lipid levels- you must be fasting to have drawn Normal [facility] Office Visiton 05-27-2024 Follow-up visit [id number] Harman Mcleod 1940 Date Provider Department Center 05/27/2024 MITCH CHERYL CORI Orozco Family History Problem Relation Age of Onset Stroke Mother Coronary artery disease Father Heart attack Father Family Status - Relation Status Age at Mother Father Level of Service:65958 CO OFFICE/OUTPATIENT ESTABLISHED LOW MDM 20 MIN Normal [facility] US ankle/arm indiceson 04-09 US ankle/arm indices [facility] [place] [address] Ultrasound Report Signed Patient: Harman Mcleod MR#: [id number] : 1940 Acct:[id number] Age/Sex: 83 / F ADM Date: 04/09/24 Loc: Room: Type: [facility] Attending Dr: Janell Mathews APRN Ordering Provider: [...] RAD-DOC-04 Tech: Kaleigh Ortega Transcribed By: FRANCIA 04/09/24 1402 Dictated By: Christiano Gonzales MD 04/09/24 140 Signed By: 04/09/24 1402 Normal [facility] US venous duplex LE BIon US venous duplex LE BI [facility] Main [place] [address] [place] [address] Ultrasound Report Signed Patient: Harman Mcleod MR#: [id number] : 1940 Acct:[id number] Age/Sex: 83 / F ADM Date: 04/09/24 Loc: Room: Type: [facility] Attending Dr: Janell Mathews APRN Ordering Provider: [...] Gonzales MD 04/09/24 1359 Signed By: 04/09/24 1401 Normal [facility] Consultation Noteon 06-21-20 Consultation Note [id number] 0TIFF Normal [facility] CBC W Auto Differential pane l (Bld)on 06-20-2023 Basophils (Bld) [#/Vol] 0.03 10*3/uL Normal <0.11 [facility] Comment on above: Order Comment: Speci men Type: BLOOD SPECIMENOrdering Facility: [facility] Address: [address] [place] [address] Performed By: #### 5 7021-8 ####[facility] LABCLIA [id number] [place] [address] Basophils/100 WBC (Bld) 0.3 % Normal [facility] Comment on above: Order Comment: Speci men Type: BLOOD SPECIMENOrdering Facility: [facility] Address: [address] [place] [address] Performed By: #### 5 7021-8 ####[facility] LABCLIA [id number] [place] [address] Differential cell count method Nom (Bld) Auto Normal [facility] Comment on above: Order Comment: Speci men Type: BLOOD SPECIMENOrdering Facility: [facility] Address: [address] [place] [address] Performed By: #### 5 7021-8 ####[facility] LABCLIA [id number] [place] [address] Eosinophils (Bld) [#/Vol] 10*3/uL Normal <0.46 [facility] Comment on above: Order Comment: Speci men Type: BLOOD SPECIMENOrdering Facility: [facility] Address: [address] [place] [address] Performed By: #### 5 7021-8 ####[facility] LABCLIA [id number] [place] [address] Eosinophils/100 WBC (Bld) 0.2 % Normal [facility] Comment on above: Order Comment: Speci men Type: BLOOD SPECIMENOrdering Facility: [facility] Address: [address] [place] [address] Performed By: #### 5 7021-8 ####[facility] LABCLIA [id number] [place] [address] Erythrocyte distribution width (RBC) [Ratio] 14.4 % Normal 11.5-15.0 [facility] Comment on above: Order Comment: Speci men Type: BLOOD SPECIMENOrdering Facility: [facility] Address: [address] [place] [address] Performed By: #### 5 7021-8 ####[facility] LABCLIA [id number] [place] [address] Hematocrit (Bld) [Volume fraction] 34.9 % Low 36.0-46.0 [facility] Comment on above: Order Comment: Speci men Type: BLOOD SPECIMENOrdering Facility: [facility] Address: [address] [place] [address] Performed By: #### 5 7021-8 ####[facility] LABCLIA [id number] [place] [address] Hemoglobin (Bld) [Mass/Vol] 10.9 g/dL Low 11.5-15.5 [facility] Comment on above: Order Comment: Speci men Type: BLOOD SPECIMENOrdering Facility: [facility] Address: [address] [place] [address] Performed By: #### 5 7021-8 ####[facility] LABCLIA [id number] [place] [address] Immature granulocytes (Bld) [#/Vol] 0.11 10*3/uL High <0.10 [facility] Comment on above: Order Comment: Speci men Type: BLOOD SPECIMENOrdering Facility: [facility] Address: [address] [place] [address] Performed By: #### 5 7021-8 ####[facility] LABCLIA [id number] [place] [address] Immature granulocytes/100 WBC (Bld) 1.1 % Normal [facility] Comment on above: Order Comment: Speci men Type: BLOOD SPECIMENOrdering Facility: [facility] Address: [address] [place] [address] Performed By: #### 5 7021-8 ####[facility] LABCLIA [id number] [place] [address] Lymphocytes (Bld) [#/Vol] 1.97 10*3/uL Normal 1.00-4.00 [facility] Comment on above: Order Comment: Speci men Type: BLOOD SPECIMENOrdering Facility: [facility] Address: [address] [place] [address] Performed By: #### 5 7021-8 ####[facility] LABCLIA [id number] [place] [address] Lymphocytes/100 WBC (Bld) 19.3 % Normal [facility] Comment on above: Order Comment: Speci men Type: BLOOD SPECIMENOrdering Facility: [facility] Address: [address] [place] [address] Performed By: #### 5 7021-8 ####[facility] LABCLIA [id number] [place] [address] MCH (RBC) [Entitic mass] 29.9 pg Normal 26.0-34.0 [facility] Comment on above: Order Comment: Speci men Type: BLOOD SPECIMENOrdering Facility: [facility] Address: [address] [place] [address] Performed By: #### 5 7021-8 ####[facility] LABIA [id number] [place] [address] MCHC (RBC) [Mass/Vol] 31.2 g/dL Normal 30.5-36.0 [facility] Comment on above: Order Comment: Speci men Type: BLOOD SPECIMENOrdering Facility: [facility] Address: [address] [place] [address] Performed By: #### 5 7021-8 ####[facility] LABIA [id number] [place] [address] MCV (RBC) [Entitic vol] 95.6 fL Normal 80.0-100.0 [facility] Comment on above: Order Comment: Speci men Type: BLOOD SPECIMENOrdering Facility: [facility] Address: [address] [place] [address] Performed By: #### 5 7021-8 ####[facility] LABCLIA [id number] [place] [address] Monocytes (Bld) [#/Vol] 0.49 10*3/uL Normal <0.87 [facility] Comment on above: Order Comment: Speci men Type: BLOOD SPECIMENOrdering Facility: [facility] Address: [address] [place] [address] Performed By: #### 5 7021-8 ####[facility] LABCLIA [id number] [place] [address] Monocytes/100 WBC (Bld) 4.8 % Normal [facility] Comment on above: Order Comment: Speci men Type: BLOOD SPECIMENOrdering Facility: [facility] Address: [address] [place] [address] Performed By: #### 5 7021-8 ####[facility] LABCLIA [id number] [place] [address] Neutrophils (Bld) [#/Vol] 7.59 10*3/uL High 1.45-7.50 [facility] Comment on above: Order Comment: Speci men Type: BLOOD SPECIMENOrdering Facility: [facility] Address: [address] [place] [address] Performed By: #### 5 7021-8 ####[facility] LABCLIA [id number] [place] [address] Neutrophils/100 WBC (Bld) 74.3 % Normal [facility] Comment on above: Order Comment: Speci men Type: BLOOD SPECIMENOrdering Facility: [facility] Address: [address] [place] [address] Performed By: #### 5 7021-8 ####[facility] LABCLIA [id number] [place] [address] Nucleated RBC (Bld) [#/Vol] 10*3/uL Normal <0.01 [facility] Comment on above: Order Comment: Speci men Type: BLOOD SPECIMENOrdering Facility: [facility] Address: [address] [place] [address] Performed By: #### 5 7021-8 ####[facility] LABCLIA [id number] [place] [address] Nucleated RBC/100 WBC (Bld) [Ratio] 0.0 /100 WBC Normal [facility] Comment on above: Order Comment: Speci men Type: BLOOD SPECIMENOrdering Facility: [facility] Address: [address] [place] [address] Performed By: #### 5 7021-8 ####[facility] LABCLIA [id number] [place] [address] Platelet mean volume (Bld) [Entitic vol] 9.3 fL Normal 9.0-12.7 [facility] Comment on above: Order Comment: Speci men Type: BLOOD SPECIMENOrdering Facility: [facility] Address: [address] [place] [address] Performed By: #### 5 7021-8 ####[facility] LABCLIA [id number] [place] [address] Platelets (Bld) [#/Vol] 275 10*3/uL Normal 150-400 [facility] Comment on above: Order Comment: Speci men Type: BLOOD SPECIMENOrdering Facility: [facility] Address: [address] [place] [address] Performed By: #### 5 7021-8 ####[facility] LABCLIA [id number] [place] [address] RBC (Bld) [#/Vol] 3.65 10*6/uL Low 3.90-5.20 [facility] Comment on above: Order Comment: Speci men Type: BLOOD SPECIMENOrdering Facility: [facility] Address: [address] [place] [address] Performed By: #### 5 7021-8 ####[facility] LABIA [id number] [place] [address] WBC (Bld) [#/Vol] 10.21 10*3/uL Normal 3.70-11.00 [facility] Comment on above: Order Comment: Speci men Type: BLOOD SPECIMENOrdering Facility: [facility] Address: [address] [place] [address] Performed By: #### 5 7021-8 ####[facility] LABIA [id number] [place] [address] CNOVSPon 06-20-2023 CNOVSP Visit (SP) Office (HEMASA) HARMAN MCLEOD ([id number]) 1940 F Date Time Provider Department 06/20/23 2:30 PM WINNIE GUZMÁN During your visit today, we recorded the following information about you: Temperature Pulse Respiration Blood pressure 97.4 degrees 72/minute 16/minute 138/55 Weight Height 84.6 kg 1.549 m Winnie Guzmán PA-C 06/20/2023 3:58 PM Signed PATIENT NAME: Harman Mcleod [facility] NO.: [id number] ATTENDING PHYSICIAN: Wallace Stone MD DATE OF [...] Negative LVI, 2 SNL negative, ER and CO >95% positive, Her2 IHC 1+ Treatment History: [...] 06/20/2023 1.77 (more content not included)... Normal [facility] Comprehensive metabolic 2000 panelon 06-20-2023 Albumin [Mass/Vol] 4.0 g/dL Normal 3.9-4.9 [facility] Comment on above: Order Comment: Speci men Type: BLOOD SPECIMENOrdering Facility: [facility] Address: [address] [place] [address] Performed By: #### 2 4323-8 ####[facility] LABCLIA [id number] [place] [address] ALP [Catalytic activity/Vol] 72 U/L Normal 34-123 [facility] Comment on above: Order Comment: Speci men Type: BLOOD SPECIMENOrdering Facility: [facility] Address: [address] [place] [address] Performed By: #### 2 4323-8 ####[facility] LABCLIA [id number] [place] [address] ALT [Catalytic activity/Vol] 17 U/L Normal 7-38 [facility] Comment on above: Order Comment: Speci men Type: BLOOD SPECIMENOrdering Facility: [facility] Address: [address] [place] [address] Performed By: #### 2 4323-8 ####[facility] LABCLIA [id number] [place] [address] Anion gap [Moles/Vol] 9 mmol/L Normal 9-18 [facility] Comment on above: Order Comment: Speci men Type: BLOOD SPECIMENOrdering Facility: [facility] Address: [address] [place] [address] Performed By: #### 2 4323-8 ####[facility] LABCLIA [id number] [place] [address] AST [Catalytic activity/Vol] 11 U/L Low 13-35 [facility] Comment on above: Order Comment: Speci men Type: BLOOD SPECIMENOrdering Facility: [facility] Address: [address] [place] [address] Performed By: #### 2 4323-8 ####[facility] LABCLIA [id number] [place] [address] Bilirubin [Mass/Vol] 0.2 mg/dL Normal 0.2-1.3 [facility] Comment on above: Order Comment: Speci men Type: BLOOD SPECIMENOrdering Facility: [facility] Address: [address] [place] [address] Performed By: #### 2 4323-8 ####[facility] LABCLIA [id number] [place] [address] Calcium [Mass/Vol] 10.1 mg/dL Normal 8.5-10.2 [facility] Comment on above: Order Comment: Speci men Type: BLOOD SPECIMENOrdering Facility: [facility] Address: [address] [place] [address] Performed By: #### 2 4323-8 ####[facility] LABCLIA [id number] [place] [address] Chloride [Moles/Vol] 103 mmol/L Normal 97-105 [facility] Comment on above: Order Comment: Speci men Type: BLOOD SPECIMENOrdering Facility: [facility] Address: [address] [place] [address] Performed By: #### 2 4323-8 ####[facility] LABCLIA [id number] [place] [address] CO2 [Moles/Vol] 30 mmol/L Normal 22-30 [facility] Comment on above: Order Comment: Speci men Type: BLOOD SPECIMENOrdering Facility: [facility] Address: [address] [place] [address] Performed By: #### 2 4323-8 ####[facility] LABCLIA [id number] [place] [address] Creatinine [Mass/Vol] 1.77 mg/dL High 0.58-0.96 [facility] Comment on above: Order Comment: Speci men Type: BLOOD SPECIMENOrdering Facility: [facility] Address: [address] [place] [address] Performed By: #### 2 4323-8 ####[facility] LABCLIA [id number] [place] [address] Creatinine and Glomerular filtration rate.predicted panel (S/P/Bld) 29 mL/min/1.73m??? Low >=60 [facility] Comment on above: Order Comment: Speci men Type: BLOOD SPECIMENOrdering Facility: [facility] Address: [address] [place] [address] Result Comment: Ramila mated Glomerular Filtration Rate [...] actual GFR. Performed By: #### 2 4323-8 ####[facility] LABIA [id number] [place] [address] Glucose [Mass/Vol] 273 mg/dL High 74-99 [facility] Comment on above: Order Comment: Speci men Type: BLOOD SPECIMENOrdering Facility: [facility] Address: [address] [place] [address] Result Comment: The [place] [employer] (ADA) provides guidance for cutoff [...] Standards of Medical Care in Diabetes 2016, [place] [employer]. Diabetes Care. 2016.39(Suppl 1). Performed By: #### 2 4323-8 ####[facility] LABIA [id number] [place] [address] Potassium [Moles/Vol] 5.1 mmol/L Normal 3.7-5.1 [facility] Comment on above: Order Comment: Speci men Type: BLOOD SPECIMENOrdering Facility: [facility] Address: [address] [place] [address] Performed By: #### 2 4323-8 ####[facility] LABCLIA [id number] [place] [address] Protein [Mass/Vol] 6.4 g/dL Normal 6.3-8.0 [facility] Comment on above: Order Comment: Speci men Type: BLOOD SPECIMENOrdering Facility: [facility] Address: [address] [place] [address] Performed By: #### 2 4323-8 ####[facility] LABCLIA [id number] [place] [address] Sodium [Moles/Vol] 142 mmol/L Normal 136-144 [facility] Comment on above: Order Comment: Speci men Type: BLOOD SPECIMENOrdering Facility: [facility] Address: [address] [place] [address] Performed By: #### 2 4323-8 ####[facility] LABCLIA [id number] [place] [address] Urea nitrogen [Mass/Vol] 40 mg/dL High 7-21 [facility] Comment on above: Order Comment: Speci men Type: BLOOD SPECIMENOrdering Facility: [facility] Address: [address] [place] [address] Performed By: #### 2 4323-8 ####[facility] LABCLIA [id number] [place] [address] Vaginitis DNA Probeon 2022 Manjula Negative Normal NEG [facility] Comment on above: Result Comment: for Manjula sp. Method of testing is a DNA probe intended for detection and identification of Manjula species, Gardnerella vaginalis, and Trichomonas vaginalis nucleic acid in vaginal fluid specimens from patients with symptoms of vaginitis/vaginosis. Performed By: #### V AGP #### [facility] [address] [place] [address] Social Media Project Manager: Fidel Hylton MD Gardnerella Negative Normal NEG [facility] Comment on above: Result Comment: for Gardnerella vaginalis Performed By: #### V AGP #### [address] [place] [address] Social Media Project Manager: Fidel Hylton MD Trichomonas Negative Normal NEG [facility] Comment on above: Result Comment: for Trichomonas Vaginalis Performed By: #### V AGP #### [address] [address] Social Media Project Manager: Fidel Hylton MD Source .VAGINAL SWAB Normal [facility] Comment on above: Performed By: #### V AGP #### [address] [id number] Social Media Project Manager: Fidel Hylton MD OPERATIVE REPORTon OPERATIVE REPORT [address] [address] OPERATIVE REPORT PATIENT NAME: HARMAN MCLEOD : 1940 MED REC NO: [id number] ROOM: ACCOUNT NO: [id number] ADMIT DATE: 03/06/2023 PROVIDER: Emma Garza MD DATE OF PROCEDURE: 03/06/2023 PREOPERATIVE DIAGNOSIS: Recurrent vaginal dysplasia. POSTOPERATIVE DIAGNOSIS: Recurrent vaginal dysplasia. OPERATION PERFORMED: Examination under anesthesia, carbon dioxide laser vaporization of vaginal dysplasia. COMPLICATIONS: None. BLOOD LOSS: Minimal. SURGEON: Emma Garza MD SOFTWARE SPECIALIST: Mauri (resident). DISPOSITION: The patient to recovery room stable. SPECIMENS: No specimen sent to Pathology. OPERATIVE FINDINGS: The patient had a small 1-2 cm area of cqknzlyq-nx-szfszb dysplasia along the anterior vagina from 12 [...] entire procedure. EMMA GARZA MD [email or web address] Doc#: [id number] CC: Normal [facility] Consultation Noteon 02-20-20 Consultation Note [id number]#1.0 0CD:127 Normal [facility] CBC W Auto Differential pane l (Bld)on 02-14-2023 Basophils (Bld) [#/Vol] 0.04 10*3/uL Normal <0.11 [facility] Comment on above: Order Comment: Speci men Type: BLOOD SPECIMENOrdering Facility: [facility] Address: [address] [place] [address] Performed By: #### 5 7021-8 ####[facility] LABCLIA [id number] [place] [address] Basophils/100 WBC (Bld) 0.4 % Normal [facility] Comment on above: Order Comment: Speci men Type: BLOOD SPECIMENOrdering Facility: [facility] Address: [address] [place] [address] Performed By: #### 5 7021-8 ####[facility] LABCLIA [id number] [place] [address] Differential cell count method Nom (Bld) Auto Normal [facility] Comment on above: Order Comment: Speci men Type: BLOOD SPECIMENOrdering Facility: [facility] Address: [address] [place] [address] Performed By: #### 5 7021-8 ####[facility] LABCLIA [id number] [place] [address] Eosinophils (Bld) [#/Vol] 0.20 10*3/uL Normal <0.46 [facility] Comment on above: Order Comment: Speci men Type: BLOOD SPECIMENOrdering Facility: [facility] Address: [address] [place] [address] Performed By: #### 5 7021-8 ####[facility] LABCLIA [id number] [place] [address] Eosinophils/100 WBC (Bld) 1.9 % Normal [facility] Comment on above: Order Comment: Speci men Type: BLOOD SPECIMENOrdering Facility: [facility] Address: [address] [place] [address] Performed By: #### 5 7021-8 ####[facility] LABCLIA [id number] [place] [address] Erythrocyte distribution width (RBC) [Ratio] 14.1 % Normal 11.5-15.0 [facility] Comment on above: Order Comment: Speci men Type: BLOOD SPECIMENOrdering Facility: [facility] Address: [address] [place] [address] Performed By: #### 5 7021-8 ####[facility] LABCLIA [id number] [place] [address] Hematocrit (Bld) [Volume fraction] 38.4 % Normal 36.0-46.0 [facility] Comment on above: Order Comment: Speci men Type: BLOOD SPECIMENOrdering Facility: [facility] Address: [address] [place] [address] Performed By: #### 5 7021-8 ####[facility] LABCLIA [id number] [place] [address] Hemoglobin (Bld) [Mass/Vol] 12.2 g/dL Normal 11.5-15.5 [facility] Comment on above: Order Comment: Speci men Type: BLOOD SPECIMENOrdering Facility: [facility] Address: [address] [place] [address] Performed By: #### 5 7021-8 ####[facility] LABCLIA [id number] [place] [address] Immature granulocytes (Bld) [#/Vol] 0.06 10*3/uL Normal <0.10 [facility] Comment on above: Order Comment: Speci men Type: BLOOD SPECIMENOrdering Facility: [facility] Address: [address] [place] [address] Performed By: #### 5 7021-8 ####[facility] LABCLIA [id number] [place] [address] Immature granulocytes/100 WBC (Bld) 0.6 % Normal [facility] Comment on above: Order Comment: Speci men Type: BLOOD SPECIMENOrdering Facility: [facility] Address: [address] [place] [address] Performed By: #### 5 7021-8 ####[facility] LABCLIA [id number] [place] [address] Lymphocytes (Bld) [#/Vol] 2.56 10*3/uL Normal 1.00-4.00 [facility] Comment on above: Order Comment: Speci men Type: BLOOD SPECIMENOrdering Facility: [facility] Address: [address] [place] [address] Performed By: #### 5 7021-8 ####[facility] LABCLIA [id number] [place] [address] Lymphocytes/100 WBC (Bld) 24.6 % Normal [facility] Comment on above: Order Comment: Speci men Type: BLOOD SPECIMENOrdering Facility: [facility] Address: [address] [place] [address] Performed By: #### 5 7021-8 ####[facility] LABCLIA [id number] [place] [address] MCH (RBC) [Entitic mass] 30.0 pg Normal 26.0-34.0 [facility] Comment on above: Order Comment: Speci men Type: BLOOD SPECIMENOrdering Facility: [facility] Address: [address] [place] [address] Performed By: #### 5 7021-8 ####[facility] LABCLIA [id number] [place] [address] MCHC (RBC) [Mass/Vol] 31.8 g/dL Normal 30.5-36.0 [facility] Comment on above: Order Comment: Speci men Type: BLOOD SPECIMENOrdering Facility: [facility] Address: [address] [place] [address] Performed By: #### 5 7021-8 ####[facility] LABIA [id number] [place] [address] MCV (RBC) [Entitic vol] 94.3 fL Normal 80.0-100.0 [facility] Comment on above: Order Comment: Speci men Type: BLOOD SPECIMENOrdering Facility: [facility] Address: [address] [place] [address] Performed By: #### 5 7021-8 ####[facility] LABCLIA [id number] [place] [address] Monocytes (Bld) [#/Vol] 0.86 10*3/uL Normal <0.87 [facility] Comment on above: Order Comment: Speci men Type: BLOOD SPECIMENOrdering Facility: [facility] Address: [address] [place] [address] Performed By: #### 5 7021-8 ####[facility] LABCLIA [id number] [place] [address] Monocytes/100 WBC (Bld) 8.3 % Normal [facility] Comment on above: Order Comment: Speci men Type: BLOOD SPECIMENOrdering Facility: [facility] Address: [address] [place] [address] Performed By: #### 5 7021-8 ####[facility] LABCLIA [id number] [place] [address] Neutrophils (Bld) [#/Vol] 6.69 10*3/uL Normal 1.45-7.50 [facility] Comment on above: Order Comment: Speci men Type: BLOOD SPECIMENOrdering Facility: [facility] Address: [address] [place] [address] Performed By: #### 5 7021-8 ####[facility] LABCLIA [id number] [place] [address] Neutrophils/100 WBC (Bld) 64.2 % Normal [facility] Comment on above: Order Comment: Speci men Type: BLOOD SPECIMENOrdering Facility: [facility] Address: [address] [place] [address] Performed By: #### 5 7021-8 ####[facility] LABCLIA [id number] [place] [address] Nucleated RBC (Bld) [#/Vol] 10*3/uL Normal <0.01 [facility] Comment on above: Order Comment: Speci men Type: BLOOD SPECIMENOrdering Facility: [facility] Address: [address] [place] [address] Performed By: #### 5 7021-8 ####[facility] LABCLIA [id number] [place] [address] Nucleated RBC/100 WBC (Bld) [Ratio] 0.0 /100 WBC Normal [facility] Comment on above: Order Comment: Speci men Type: BLOOD SPECIMENOrdering Facility: [facility] Address: [address] [place] [address] Performed By: #### 5 7021-8 ####[facility] LABCLIA [id number] [place] [address] Platelet mean volume (Bld) [Entitic vol] 9.6 fL Normal 9.0-12.7 [facility] Comment on above: Order Comment: Speci men Type: BLOOD SPECIMENOrdering Facility: [facility] Address: [address] [place] [address] Performed By: #### 5 7021-8 ####[facility] LABIA [id number] [place] [address] Platelets (Bld) [#/Vol] 271 10*3/uL Normal 150-400 [facility] Comment on above: Order Comment: Speci men Type: BLOOD SPECIMENOrdering Facility: [facility] Address: [address] [place] [address] Performed By: #### 5 7021-8 ####[facility] [id number] [place] [address] RBC (Bld) [#/Vol] 4.07 10*6/uL Normal 3.90-5.20 [facility] Comment on above: Order Comment: Speci men Type: BLOOD SPECIMENOrdering Facility: [facility] Address: [address] [place] [address] Performed By: #### 5 7021-8 ####[facility] [id number] [place] [address] WBC (Bld) [#/Vol] 10.41 10*3/uL Normal 3.70-11.00 [facility] Comment on above: Order Comment: Speci men Type: BLOOD SPECIMENOrdering Facility: [facility] Address: [address] [place] [address] Performed By: #### 5 7021-8 ####[facility] [id number] [place] [address] CNOVSPon 02-14-2023 CNOVSP Visit (SP) Office (HEMASA) HARMAN MCLEOD ([id number]) 1940 F Date Time Provider Department 02/14/23 10:30 AM WALLACE STONE During your visit today, we recorded the following information about you: Temperature Pulse Respiration Blood pressure 97.4 degrees 102/minute 16/minute 151/90 Weight Height 84.5 kg 1.549 m Wallace Stone MD 02/14/2023 10:49 AM Signed PATIENT NAME: Harman Mcleod CLINIC NO.: [id number] ATTENDING PHYSICIAN: Wallace Stone MD DATE OF [...] Negative LVI, 2 SNL negative, ER and CO >95% positive, Her2 IHC 1+ Treatment History: [...] : Deferre (more content not included)... Normal [facility] CNPNon 02-14-2023 CNPN Telephone (NCCAP) HARMAN MCLEOD ([id number]) 1940 F Date Time Provider Department 02/14/23 WALLACE STONE [facility] During your visit today, we recorded the following information about you: Angelica Garrett 02/14/2023 11:00 AM Signed Please ref to [facility] for Consult dx eczema They will call the patient to schedule after review of records. Janeth, Please fax records Dudley, Please check on this appt. Kira Ko [facility] 02/14/2023 1:14 PM Signed Records faxed to [facility]. Adriana Pereira Pss 02/22/2023 8:35 AM Signed Called [facility] office spoke with Coco. She states they [...] daily at bedtime. Cut in half - Kfytc-0-LQT-EPA-Fish Oil 1,000 mg (120 mg-180 mg) cap Take 2 g by mouth twice daily. - isosorbide mononitrate ER (IMDUR) 60 mg 24 hr tablet Take 60 mg by mouth twice daily. Problem List As Of Date 02/14/2023 Noted Resolved Hypertension [I10] DM type 2 (diabetes mellitus, type 2) ([facility]) [E1* Essential hypertension [I10] 01/16/2017 Type 2 diabetes mellitus without complication, *01/16/2017 Hypothyroidism [E03.9] 01/16/2017 Dyslipidemia [E78.5] 01/16/2017 Atherosclerosis of augustine coronary artery of na*01/16/2017 S/P coronary artery stent placement [Z95.5] 01/16/2017 Moderate smoker (20 or less per day) [F17.210] 01/16/2017 PAD (peripheral artery disease) (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 Stage 3a chronic kidney disease (HCC) [N18.31] 02/14/2023 Encounter Status:Closed by ANGELICA MILLAN on 02/28/23 Normal [facility] Comprehensive metabolic 2000 panelon 02-14-2023 Albumin [Mass/Vol] 4.1 g/dL Normal 3.9-4.9 [facility] Comment on above: Order Comment: Speci men Type: BLOOD SPECIMENOrdering Facility: [facility] Address: [address] [place] [address] Performed By: #### 2 4323-8 ####[facility] LABCLIA [id number] [place] [address] ALP [Catalytic activity/Vol] 106 U/L Normal 34-123 [facility] Comment on above: Order Comment: Speci men Type: BLOOD SPECIMENOrdering Facility: [facility] Address: [address] [place] [address] Performed By: #### 2 4323-8 ####[facility] LABCLIA [id number] [place] [address] ALT [Catalytic activity/Vol] 14 U/L Normal 7-38 [facility] Comment on above: Order Comment: Speci men Type: BLOOD SPECIMENOrdering Facility: [facility] Address: [address] [place] [address] Performed By: #### 2 4323-8 ####[facility] LABCLIA [id number] [place] [address] Anion gap [Moles/Vol] 11 mmol/L Normal 9-18 [facility] Comment on above: Order Comment: Speci men Type: BLOOD SPECIMENOrdering Facility: [facility] Address: [address] [place] [address] Performed By: #### 2 4323-8 ####[facility] LABIA [id number] [place] [address] AST [Catalytic activity/Vol] 11 U/L Low 13-35 [facility] Comment on above: Order Comment: Speci men Type: BLOOD SPECIMENOrdering Facility: [facility] Address: [address] [address] Performed By: #### 2 4323-8 ####[facility] LABCLIA [id number] [place] [address] Bilirubin [Mass/Vol] 0.3 mg/dL Normal 0.2-1.3 [facility] Comment on above: Order Comment: Speci men Type: BLOOD SPECIMENOrdering Facility: [facility] Address: [address] [address] Performed By: #### 2 4323-8 ####[facility] LABCLIA [id number] [place] [address] Calcium [Mass/Vol] 10.2 mg/dL Normal 8.5-10.2 [facility] Comment on above: Order Comment: Speci men Type: BLOOD SPECIMENOrdering Facility: [facility] Address: [address] [place] [address] Performed By: #### 2 4323-8 ####[facility] LABCLIA [id number] [place] [address] Chloride [Moles/Vol] 98 mmol/L Normal 97-105 [facility] Comment on above: Order Comment: Speci men Type: BLOOD SPECIMENOrdering Facility: [facility] Address: [address] [place] [address] Performed By: #### 2 4323-8 ####[facility] LABCLIA [id number] [place] [address] CO2 [Moles/Vol] 31 mmol/L High 22-30 [facility] Comment on above: Order Comment: Speci men Type: BLOOD SPECIMENOrdering Facility: [facility] Address: [address] [place] [address] Performed By: #### 2 4323-8 ####[facility] LABCLIA [id number] [place] [address] Creatinine [Mass/Vol] 1.25 mg/dL High 0.58-0.96 [facility] Comment on above: Order Comment: Dimple de santiago Type: BLOOD SPECIMENOrdering Facility: [facility] Address: [address] [id number] Performed By: #### 2 4323-8 ####[facility] LABCLIA [id number] [place] [address] ESTIMATED GLOMERULAR FILTRATION RATE 44 mL/min/1.73m??? Low >=60 [facility] Comment on above: Order Comment: Dimple anyi Type: BLOOD SPECIMENOrdering Facility: [facility] Address: [address] [place] [address] Result Comment: Ramila mated Glomerular Filtration Rate [...] actual GFR. Performed By: #### 2 4323-8 ####[facility] LABCLIA [id number] [place] [address] Glucose [Mass/Vol] 285 mg/dL High 74-99 [facility] Comment on above: Order Comment: Dimple anyi Type: BLOOD SPECIMENOrdering Facility: [facility] Address: [address] [place] [address] Result Comment: The [place] [employer] Association (ADA) provides guidance for cutoff [...] Standards of Medical Care in Diabetes 2016, [place] [employer]. Diabetes Care. 2016.39(Suppl 1). Performed By: #### 2 4323-8 ####[facility] LABCLIA [id number] [place] [address] Potassium [Moles/Vol] 3.7 mmol/L Normal 3.7-5.1 [facility] Comment on above: Order Comment: Speci men Type: BLOOD SPECIMENOrdering Facility: [facility] Address: [address] [place] [address] Performed By: #### 2 4323-8 ####[facility] LABCLIA [id number] [place] [address] Protein [Mass/Vol] 7.3 g/dL Normal 6.3-8.0 [facility] Comment on above: Order Comment: Speci men Type: BLOOD SPECIMENOrdering Facility: [facility] Address: [address] [place] [address] Performed By: #### 2 4323-8 ####[facility] LABCLIA [id number] [place] [address] Sodium [Moles/Vol] 140 mmol/L Normal 136-144 [facility] Comment on above: Order Comment: Speci men Type: BLOOD SPECIMENOrdering Facility: [facility] Address: [address] [place] [address] Performed By: #### 2 4323-8 ####[facility] LABCLIA [id number] [place] [address] Urea nitrogen [Mass/Vol] 33 mg/dL High 7-21 [facility] Comment on above: Order Comment: Speci men Type: BLOOD SPECIMENOrdering Facility: [facility] Address: [address] [place] [address] Performed By: #### 2 4323-8 ####[facility] LABCLIA [id number] [place] [address] Consultation Noteon 06-06-20 23 Consultation Note [id number]#1.0 0CD:127 Normal [facility] Comment on above: Other Comment: TRACEY RUTH CRR CULTURE URINEon 01-19-2023 CULTURE URINE Culture Observations : VERY LIGHT GROWTH OF MIXED GENITAL SAGE. NO POTENTIAL PATHOGENS SEEN. Normal [facility] Comment on above: Performed By: #### U RCX ####[facility] [address] [place] [address]Dr. Omid Bowden UA RANDOM W/MICROSCOPICon BACTERIA TRACE Abnormal NONE SEEN [facility] Comment on above: Performed By: #### H GB #### [facility] [address] [place] [address] Dr. Omid Bowden Bilirubin Ql (U) Negative Normal NEGATIVE [facility] Comment on above: Performed By: #### H GB #### [facility] [address] [place] [address] Dr. Omid Bowden CAST NONE SEEN Normal NONE SEEN [facility] Comment on above: Performed By: #### H GB #### [facility] [address] [place] [address] Dr. Omid Bowden Clarity (U) CLEAR Normal CLEAR [facility] Comment on above: Performed By: #### H GB #### [facility] [address] [place] [address] Dr. Omid Bowden Color (U) LT. YELLOW Normal YELLOW [facility] Comment on above: Performed By: #### H GB #### [facility] [address] [place] [address] Dr. Omid Bowden Crystals LM Nom (Urine sed) NONE SEEN Normal NONE SEEN [facility] Comment on above: Performed By: #### H GB #### [facility] [address] [place] [address] Dr. Omid Bowden Epithelial cells LM Ql (Urine sed) RARE Normal NONE SEEN /RARE [facility] Comment on above: Performed By: #### H GB #### [facility] [address] [place] [address] Dr. Omid Bowden Glucose Ql (U) Negative Normal NEGATIVE [facility] Comment on above: Performed By: #### H GB #### [facility] [address] [address] [address] Omid Bowden Hemoglobin Ql (U) Negative Normal NEGATIVE [facility] Comment on above: Performed By: #### H GB #### [facility] [address] [place] [address] Dr. Omid Bowden Ketones Ql (U) Negative Normal NEGATIVE [facility] Comment on above: Performed By: #### H GB #### [facility] [address] [address] [address] Omid Bowden LEUKOCYTES SMALL Abnormal NEGATIVE [facility] Comment on above: Performed By: #### H GB #### [facility] [address] [place] [address] Dr. Omid Bowden MUCOUS NONE SEEN Normal NONE SEEN [facility] Comment on above: Performed By: #### H GB #### [facility] [address] [place] [address] Dr. Omid Bowden Nitrite Ql (U) Negative Normal NEGATIVE [facility] Comment on above: Performed By: #### H GB #### [facility] [address] [place] [address] Dr. Omid Bowden pH (U) 6.0 [pH] Normal 5-9 [facility] Comment on above: Performed By: #### H GB #### [facility] [address] [place] [address] Dr. Omid Bowden RBC 0-2 Normal 0-2 [facility] Comment on above: Performed By: #### H GB #### [facility] [address] [place] [address] Dr. Omid Bowden SPEC GRAVITY <=1.005 Abnormal 1.005-<=1.0 25 [facility] Comment on above: Performed By: #### H GB #### [facility] [address] [place] [address] Dr. Omid Bowden UA PROTEIN Negative Normal NEGATIVE/ TRACE [facility] Comment on above: Performed By: #### H GB #### [facility] [address] [address] [address] Omid Bowden Urobilinogen Qn (U) 0.2 {Jose'U}/dL Normal 0.2 - 1. 0 [facility] Comment on above: Performed By: #### H GB #### [facility] [address] [address] [address] Omid Bowden WBC 0-2 Abnormal NONE SEEN [facility] Comment on above: Performed By: #### H GB #### [facility] [address] [address] [address] Omid Bowden Creatinine [Mass/volume] in Serum or PlasmaOrdered By: Christiano Gonzales on 11-29-2022 Creatinine [Mass/Vol] 1.37 mg/dL 0.60-1.20 [facility] - Chemistry and C hemistry - challengeOrdered By: Christiano Gonzales on 11-29-2022 GFR/1.73 sq M.predicted MDRD (S/P/Bld) [Vol rate/Area] 39.034 mL/min/{1.73_m2} [facility] No Panel InformationOrdered By: Christiano Gonzales on 11-29-2022 Pharmacy Creatinine Clearance (Chem 31.71 [facility] Urea nitrogen [Mass/volume] in Serum or PlasmaOrdered By: Christiano Gonzales on 11-29-2022 Urea nitrogen [Mass/Vol] 35 mg/dL 7-25 [facility] Surgical Pathologyon 023 Surgical Pathology (NOTE) [...] CONSULTATION Patient Name: HARMAN MCLEOD Med Rec: [id number] Path Number: [id number] [employer] [facility] ANATOM[facility] PATHOLOG[facility] [address] [place], [place] [address] Normal [facility] Comment on above: Performed By: #### P PPVS #### [email or web address] [address] [place] [address] [id number] Social Media Project Manager: Fidel Hylton MD Ambulatory Visit Summaryon 0 [...] and diastolic (congestive) heart failure Atherosclerosis of augustine artery of extremity BMI 36.0-36.9,adult Brain stem [...] Stage 2 chronic kidney disease Normal [facility] General Surgery Office/Clini c Noteon 11-22-2022 General [...] Follow-up With When Contact Information CHELSI CARDONA, DANIEL Jose Only if needed [address] [place] [address]- Additional Instructions: Problem List/Past Medical History Ongoing 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 Normal [facility] Comment on above: Result Comment: Elec tronically Signed By: CHELSI CARDONA, Iliana Ramirez\jazmine\Date and Time Signed: 11/22/22 15:17 EDT Covid-19 PCR (CVDTB)on SARS-CoV-2 (COVID-19) RNA MARII+probe Ql (Unsp spec) Not detected Normal NOT DETECTED [facility] Comment on above: Result Comment: When diagnostic [...] for this test is supported by the Equality of Health and Human Service's declaration that [...] used). Performed By: #### H GB #### [facility] [address] [address] [address] Omid Bowden INFLUENZA A AND B AGon 11-16 [facility] SEE BELOW Normal [facility] Comment on above: Result Comment: Nega tive for Flu A protein angiten. Infection due to Flu A cannot be ruled out. Flu A angiten in the sample may be below the detection limit of the test. Performed By: #### I NFLUAB ####[facility] [address] [place], [place] [address]Dr. Omid Bowden INFLUBNEG SEE BELOW Normal [facility] Comment on above: Result Comment: Nega tive for Flu B protein antigen. Infection due to Flu B cannot be ruled out. Flu B antigen in the sample may be below the detection limit of the test. Performed By: #### I NFLUAB ####[facility] [address] [place], [place] [address]Dr. Omid Bowden INFLUENZA A AG Negative Normal NEGATIVE SEE COMMENT [facility] Comment on above: Performed By: #### I NFLUAB ####[facility] [address] [place], [place] [address]DrMedardo Bowden INFLUENZA B AG Negative Normal NEGATIVE SEE COMMENT [facility] Comment on above: Performed By: #### I NFLUAB ####[facility] [address] [place], [place] [address]Dr. Omid Bowden CNOVSPon 11-09-2022 CNOVSP [facility] ([id number]) 1940 F Date Time Provider Department 11/09/22 2:00 PM WALLACE STONE During your visit today, we recorded the following information about you: Temperature Pulse Respiration Blood pressure 97.1 degrees 66/minute 18/minute 142/72 Weight Height 84.7 kg 1.549 m Wallace Stone MD 11/09/2022 2:24 PM Signed PATIENT NAME: Harman Mcleod CLINIC NO.: [id number] ATTENDING PHYSICIAN: Wallace Stone MD DATE OF SERVICE: November 09, [address] Banks referring provider defined for this encounter. here is an update on a follow up visit on female Harman Mcleod at the clinic 11/09/2022 Diagnosis: T1b, N0, M0- R breast, Tumor 9 mm, Grade 2, Margins negative, Negative LVI, 2 SNL negative, ER and CO >95% positive, Her2 IHC 1+ Treatment History: [...] LABS: Gluc (more content not included)... Normal [facility] CNPNon 11-09-2022 CNPN Telephone (NCCAP) HARMAN MCLEOD ([id number]) 1940 F Date Time Provider Department 11/09/22 WALLACE STONE NCCAP During your visit today, we recorded the following information about you: Carlos Brooks 11/09/2022 2:45 PM Signed Vascular Consult [facility] Previous patient of Dr. Mendez 3 years or more. Janeth/Dudley: Can you please refer patient and follow up? Thanks! Carlos Pereira [facility] 11/10/2022 8:46 AM Signed Janeth: Information ready for you. Adriana Pereira [facility] Kira Ko [facility] 11/10/2022 9:38 AM Signed Records [...] Fully Assessed Reason for Visit: Referral Information [4399] Cmt: Vascular Consult Prescriptions as of 11/16/2022 [...] daily at bedtime. Cut in half - Ogxaj-7-AOM-EPA-Fish Oil 1,000 mg (120 mg-180 mg) cap Take 2 g by mouth twice daily. - isosorbide mononitrate ER (IMDUR) 60 mg 24 hr tablet Take 60 mg by mouth twice daily. Problem List As Of Date 11/09/2022 Noted Resolved Hypertension [I10] DM type 2 (diabetes mellitus, type 2) ([facility]) [E1* Essential hypertension [I10] 01/16/2017 Type 2 diabetes mellitus without complication, *01/16/2017 Hypothyroidism [E03.9] 01/16/2017 Dyslipidemia [E78.5] 01/16/2017 Atherosclerosis of augustine coronary artery of na*01/16/2017 S/P coronary artery stent placement [Z95.5] 01/16/2017 Moderate smoker (20 or less per day) [F17.210] 01/16/2017 PAD (peripheral artery disease) (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 Normal [facility] Comment on above: Result Comment: Elec [...] CARDONA, Iliana Ramirez Where: General Surgery Chelsi/Angelita Israel Normal [facility] General Surgery Office/Clini c Noteon 11-04-2022 General [...] and diastolic (congestive) heart failure Atherosclerosis of augustine artery of extremity BMI 36.0-36.9,adult Brain stem [...] Family Histor (more content not included)... Normal [facility] Comment on above: Result Comment: Elec tronically Signed By: CHELSI CARDONA, Iliana Ramirez\jazmine\Date and Time Signed: 11/04/22 14:35 EST US [...] by: MIGUELITO TELLEZ Date: 2022-11-02 17:17 Normal [facility] Pathology Noteon 10-26-2022 Pathology Note [id number]#1.0 0CD:127 Normal [facility] Ambulatory Visit Summaryon 0 10-25-2022 Ambulatory [...] Iliana GAGNON MD Where: General Surgery Chelsi/Angelita Lindy Victor [facility] General Surgery Office/Clini c Noteon 10-25-2022 [...] and diastolic (congestive) heart failure Atherosclerosis of augustine artery of extremity BMI 36.0-36.9,adult Brain stem [...] disease: Mo (more content not included)... Normal [facility] Comment on above: Result Comment: Elec tronically Signed By: CHELSI CARDONA, Iliana Alvarez\Date and Time Signed: 10/25/22 16:13 EST Operative Reporton 3 Operative Report [id number] 0CD:127 Normal [facility] RAD - Ultrasound Reporton RAD - Ultrasound Report [id number]#1.0 0CD:127 Normal [facility] NM SENTNL NODEon 10-19-2022 IN SENT NODE NUCLEAR MEDICINE LYMPHOSCINTIGRAPHY. HISTORY: Infiltrating duct [...] by: KRISTIN JAQUEZ Date: 2022-10-19 10:41 Normal [facility] POINT OF CARE GLUCOSEon 02- Glucose [Mass/Vol] 153 mg/dL Critically high 74-106 T he [facility] Comment on above: Performed By: #### P OCGLUC #### [facility] [address] [address] [address] Omid Bowden RAD - MISCon 10-19-2022 RAD - MISC [id number] 0CD:127 Normal [facility] RAD - MISC [id number] 0CD:127 Normal [facility] RAD - Ultrasound Reporton RAD - Ultrasound Report [id number] 0CD:127 Normal [facility] RAD - Ultrasound Report [id number] 0CD:127 Normal [facility] US BREAST SPECIMENon 023 US BREAST SPECIMEN Patient: HARMAN MCLEOD Exam Date: 10/19/2022 : 1940 Gender:F Ordering : DR ILIANA GGANON . Admission #: [id number] Family : Order #: [id number] CLICK HERE TO VIEW EXAM RADIOLOGY REPORT PROCEDURE: US BREAST SPECIMEN COMPARISON: None. INDICATIONS: Specimen from breast FINDINGS: Breast specimen demonstrates inclusion of the targeted mass as well as the micro clip marker CONCLUSION: Targeted mass and micro clip marker included within the specimen Dictated by: Judson Bauman MD on 10/19/2022 at 11:46 Approved by: Judson Bauman MD on 10/19/2022 at 11:47 Normal [facility] US GUIDE LOCAL BREAST RTon 0 10-19-2022 US GUIDE LOCAL BREAST RT Patient: HARMAN MCLEOD Refugio Exam Date: 10/19/2022 : 1940 Gender:F Ordering : DR ILIANA GAGNON . Admission #: [id number] Family : Order #: [id number] CLICK HERE TO VIEW EXAM RADIOLOGY REPORT [...] clip marker LOCATION: Right breast 9 NEEDLE: [employer] spring hook; 20 g by 5 cm needle and wire. MEDICATION: 6 cubic cm Superficial and deep buffered 1% lidocaine. COMPLICATIONS: None. CONCLUSION: Technically successful hookwire localization. Dictated by: Judson Bauman MD on 10/19/2022 at 09:04 Approved by: Judson Bauman MD on 10/19/2022 at 09:05 Normal [facility] US SENTINEL NODEon US SENTINEL NODE EXAM: [...] by: JUDSON BAUMAN Date: 2022-10-19 08:59 Normal [facility] RAD - MISCon 10-17-2022 RAD - MISC [id number] 0CD:127 Normal [facility] CBC AUTO DIFFon 10-11-2022 BASO # 0.0 103/ul Normal 0.0-0.1 [facility] Comment on above: Performed By: #### H GB #### [facility] [address] [place] [address] Dr. Omid Bowden Basophils/100 WBC (Bld) 0.2 % Normal 0.2-2.0 [facility] Comment on above: Performed By: #### H GB #### [facility] [address] [place] [address] Dr. Omid Bowden EO # 0.0 103/ul Normal 0.0-0.7 [facility] Comment on above: Performed By: #### H GB #### [facility] [address] [place] [address] Dr. Omid Bowden Eosinophils/100 WBC (Bld) 0.3 % Critically low 0.9-7.0 [facility] Comment on above: Performed By: #### H GB #### [facility] [address] [place] [address] Dr. Omid Bowden Erythrocyte distribution width (RBC) [Ratio] 13.7 % Normal 11.0-15.0 [facility] Comment on above: Performed By: #### H GB #### [facility] [address] [place] [address] Dr. Omid Bowden Hematocrit (Bld) [Volume fraction] 39.6 % Normal 36.0-48.0 [facility] Comment on above: Performed By: #### H GB #### [facility] [address] [place] [address] Dr. Omid Bowden Hemoglobin (Bld) [Mass/Vol] 12.3 g/dL Normal 12.0-16.0 [facility] Comment on above: Performed By: #### H GB #### [facility] [address] [place] [address] Dr. Omid Bowden IG # 0.06 10e3/ul Critically high 0.00-0.03 [facility] Comment on above: Performed By: #### H GB #### [facility] [address] [place] [address] Dr. Omid Bowden IG % 0.5 % Normal 0.0-0.5 [facility] Comment on above: Performed By: #### H GB #### [facility] [address] [place] [address] Dr. Omid Bowden LYMPH # 2.9 103/ul Normal 1.2-3.8 [facility] Comment on above: Performed By: #### H GB #### [facility] [address] [place] [address] Dr. Omid Bowden Lymphocytes/100 WBC (Bld) 26.2 % Normal 20.5-60.0 [facility] Comment on above: Performed By: #### H GB #### [facility] [address] [place] [address] Dr. Omid Bowden MANUAL DIFF REQ NO Normal [facility] Comment on above: Performed By: #### H GB #### [facility] [address] [place] [address] Dr. Omid Bowden MCH (RBC) [Entitic mass] 28.3 pg Normal 26.7-34.0 [facility] Comment on above: Performed By: #### H GB #### [facility] [address] [place] [address] Dr. Omid Bowden MCHC (RBC) [Mass/Vol] 31.1 g/dL Normal 29.9-35.2 [facility] Comment on above: Performed By: #### H GB #### [facility] [address] [place] [address] Dr. Omid Bowden MCV (RBC) [Entitic vol] 91.2 fL Normal 81.0-99.0 [facility] Comment on above: Performed By: #### H GB #### [facility] [address] [place] [address] Dr. Omid Bowden MONO # 0.9 103/ul Critically high 0.3-0.8 [facility] Comment on above: Performed By: #### H GB #### [facility] [address] [place] [address] Dr. Omid Bowden Monocytes/100 WBC (Bld) 8.3 % Normal 1.7-12.0 [facility] Comment on above: Performed By: #### H GB #### [facility] [address] [place] [address] Dr. Omid Bowden NEUT # 7.0 103/ul Critically high 1.4-6.5 [facility] Comment on above: Performed By: #### H GB #### [facility] [address] [place] [address] Dr. Omid Bowden Neutrophils/100 WBC (Bld) 64.5 % Normal 43.0-75.0 [facility] Comment on above: Performed By: #### H GB #### [facility] [address] [place] [address] Dr. Omid Bowden Platelet mean volume (Bld) [Entitic vol] 9.2 fL Critically low 9.5-13.5 [facility] Comment on above: Performed By: #### H GB #### [facility] [address] [place] [address] Dr. Omid Bowden PLT 346 103/ul Normal 150-450 [facility] Comment on above: Performed By: #### H GB #### [facility] [address] [place] [address] Dr. Omid Bowden RBC 4.34 106/ul Normal 4.20-5.40 [facility] Comment on above: Performed By: #### H GB #### [facility] [address] [place] [address] Dr. Omid Bowden WBC 10.9 103/ul Normal 4.0-11.0 [facility] Comment on above: Performed By: #### H GB #### [facility] [address] [place] [address] Dr. Omid Bowden PROF CHEM 8 (BAS METB)on Anion gap [Moles/Vol] 11.0 mmol/L Normal [facility] Comment on above: Performed By: #### L IPID, BMP #### [facility] [address] [place] [address] Dr. Omid Bowden Calcium [Mass/Vol] 9.6 mg/dL Normal 8.5-10.1 [facility] Comment on above: Performed By: #### L IPID, BMP #### [facility] [address] [place] [address] Dr. Omid Bowden Chloride [Moles/Vol] 99 mmol/L Normal 98-107 [facility] Comment on above: Performed By: #### L IPID, BMP #### [facility] [address] [place] [address] Dr. Omid Bowden CO2 [Moles/Vol] 32.0 mmol/L Normal 21.0-32.0 [facility] Comment on above: Performed By: #### L IPID, BMP #### [facility] [address] [address] [address] Omid Bowden Creatinine [Mass/Vol] 1.03 mg/dL Critically high 0.55-1.02 [facility] Comment on above: Performed By: #### L IPID, BMP #### [facility] [address] [address] [address] Omid Bowden EGFR-AF STATELESS >60 Normal >=60 [facility] Comment on above: Performed By: #### L IPID, BMP #### [facility] [address] [place] [address] Dr. Omid Bowden EGFR-NON AF STATELESS 52 mL/min/1.73m2 Critically low >=60 [facility] Comment on above: Performed By: #### L IPID, BMP #### [facility] [address] [address] [address] Omid Bowden Glucose [Mass/Vol] 94 mg/dL Normal 74-106 [facility] Comment on above: Performed By: #### L IPID, BMP #### [facility] [address] [place] [address] Dr. Omid Bowden Potassium [Moles/Vol] 4.0 mmol/L Normal 3.5-5.1 [facility] Comment on above: Performed By: #### L IPID, BMP #### [facility] [address] [address] [address] Omid Bowden Sodium [Moles/Vol] 138 mmol/L Normal 136-145 [facility] Comment on above: Performed By: #### L IPID, BMP #### [facility] [address] [address] [address] Omid Bowden Urea nitrogen [Mass/Vol] 28.0 mg/dL Critically high 7.0-18.0 [facility] Comment on above: Performed By: #### L IPID, BMP #### [facility] [address] [address] [address] Omid Bowden Urea nitrogen/Creatinine [Mass ratio] 27.2 mg/mg Normal [facility] Comment on above: Performed By: #### L IPID, BMP #### [facility] [address] [place] [address] Dr. Omid Bowden PROTIMEon 10-11-2022 INR Coag (PPP) [Relative time] 0.99 {INR} Normal [facility] Comment on above: Performed By: #### H GB #### [facility] [address] [place] [address] Dr. Omid Bowden INR GUIDELINES SEE BELOW Normal [facility] Comment on above: Result Comment: PERLITA RED INR: 2.0 - 3.0 CONDITIONS NOT LISTED BELOW 2.5 - 3.5 FOR PROSTHETIC HEART VALVE REPLACEMENT 2.5 - 3.5 RECURRENT THROMBOSIS Performed By: #### H GB #### [facility] [address] [place] [address] Dr. Omid Bowden PT Coag (PPP) [Time] 10.5 s Normal 9.0-11.6 [facility] Comment on above: Performed By: #### H GB #### [facility] [address] [place] [address] Dr. Omid Bowden PTTon 10-11-2022 aPTT Coag (Bld) [Time] 28.6 s Normal 22.3-36.2 Th [facility] Comment on above: Performed By: #### H GB #### [facility] [address] [place] [address] Dr. Omid Bowden Consultation Noteon 10-06-19 23 Consultation Note [id number] 0CD:127 Normal [facility] INSULINon 10-01-2022 Insulin 22.8 uIU/mL Normal 2.6-24.9 [facility] Comment on above: Performed By: #### L IPID, BMP #### [facility] [address] [place] [address] Dr. Omid Bowden GLYCOHEMOGLOBIN A1Con 2022 ADA RECOMMENDATION SEE BELOW Normal [facility] Comment on above: Result Comment: ADA RECOMMENDED LIMIT 4.0 - 6.0 ADA THERAPEUTIC TARGET < 7.0 ACTION SUGGESTED > 7.0 Performed By: #### H GB #### [facility] [address] [address] [address] Omid Bowden Glucose [Mass/Vol] 177 mg/dL Normal [facility] Comment on above: Performed By: #### H GB #### [facility] [address] [address] [address] Omid Bowden HbA1c (Bld) [Mass fraction] 7.8 % Critically high 4.5-6.2 [facility] Comment on above: Performed By: #### H GB #### [facility] [address] [address] [address] Omid Bowden PROF 14(COMP METB)on 023 Albumin [Mass/Vol] 3.0 g/dL Critically low 3.4-5.0 [facility] Comment on above: Performed By: #### C MP ####[facility] [address] [address]DrMedardo Bowden Albumin/Globulin [Mass ratio] 0.7 {ratio} Normal [facility] Comment on above: Performed By: #### C MP ####[facility] [address] [address]DrMedardo Bowden ALP [Catalytic activity/Vol] 73 U/L Normal 46-116 [facility] Comment on above: Performed By: #### C MP ####[facility] [address] [address]DrMedardo Bowden ALT [Catalytic activity/Vol] 16 U/L Normal 14-59 [facility] Comment on above: Performed By: #### C MP ####[facility] [address] [address]DrMedardo Bowden Anion gap [Moles/Vol] 11.3 mmol/L Normal [facility] Comment on above: Performed By: #### C MP ####[facility] [address] [address]DrMedardo Bowden AST [Catalytic activity/Vol] 14 U/L Critically low 15-37 [facility] Comment on above: Performed By: #### C MP ####[facility] [address] [address]Dr. Omid Bowden Bilirubin [Mass/Vol] 0.3 mg/dL Normal 0.2-1.0 [facility] Comment on above: Performed By: #### C MP ####[facility] [address] [place], [place] [address]Dr. Omid Bowden Calcium [Mass/Vol] 9.5 mg/dL Normal 8.5-10.1 [facility] Comment on above: Performed By: #### C MP ####[facility] [address] [place], [place] [address]Dr. Omid Bowden Chloride [Moles/Vol] 102 mmol/L Normal 98-107 [facility] Comment on above: Performed By: #### C MP ####[facility] [address] [place], [place] [address]Dr. Omid Bowden CO2 [Moles/Vol] 31.1 mmol/L Normal 21.0-32.0 [facility] Comment on above: Performed By: #### C MP ####[facility] [address] [place], [place] [address]Dr. Omid Bowden Creatinine [Mass/Vol] 1.28 mg/dL Critically high 0.55-1.02 [facility] Comment on above: Performed By: #### C MP ####[facility] [address] [place], [place] [address]Dr. Omid Kal EGFR-AF STATELESS 49 mL/min/1.73m2 Critically low >=60 [facility] Comment on above: Performed By: #### C MP ####[facility] [address] [place], [place] [address]Dr. Omid Kal EGFR-NON AF STATELESS 40 mL/min/1.73m2 Critically low >=60 [facility] Comment on above: Performed By: #### C MP ####[facility] [address] [place], [place] [address]Dr. Omid Bowden Globulin (S) [Mass/Vol] 4.4 g/dL Normal [facility] Comment on above: Performed By: #### C MP ####[facility] [address] [address]Dr. Omid Bowden Glucose [Mass/Vol] 103 mg/dL Normal 74-106 [facility] Comment on above: Performed By: #### C MP ####[facility] [address] [address]Dr. Omid Kal Potassium [Moles/Vol] 4.4 mmol/L Normal 3.5-5.1 [facility] Comment on above: Performed By: #### C MP ####[facility] [address] [address]Dr. Omid Bowden Protein [Mass/Vol] 7.4 g/dL Normal 6.4-8.2 [facility] Comment on above: Performed By: #### C MP ####[facility] [address] [place], [place] [address]Dr. Omid Bowden Sodium [Moles/Vol] 140 mmol/L Normal 136-145 [facility] Comment on above: Performed By: #### C MP ####[facility] [address] [place], [place] [address]Dr. Omid Bowden Urea nitrogen [Mass/Vol] 27.0 mg/dL Critically high 7.0-18.0 [facility] Comment on above: Performed By: #### C MP ####[facility] [address] [place], [place] [address]Dr. Omid Kal Urea nitrogen/Creatinine [Mass ratio] 21.1 mg/mg Normal [facility] Comment on above: Performed By: #### C MP ####[facility] [address] [place], [place] [address]Dr. Omid Kal Formson 09-29-2022 Forms [id number] 0CD:127 Normal [facility] Consent for Procedure/Surger yon 09-26-2022 Consent for Procedure/Surgery [id number]#1.0 0CD:127 Normal [facility] Consultation Noteon 09-23-19 Consultation Note [id number]#1.0 0CD:127 Normal [facility] CNOVon 09-22-2022 CNOV Office Visit (RADTSA ) HARMAN MCLEOD ([id number]) 1940 F Date Time Provider Department 09/22/22 1:00 PM MARCIN SHAH During your visit today, we recorded the following information about you: Marcin Shah MD 2022 6:06 AM Addendum Radiation Oncology - New Patient/Consult Note PATIENT NAME: Harman Mcleod PATIENT REQUESTING PHYSICIAN: Dr. 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 PATIENT IDENTIFICATION: This patient was seen in the Department of Radiation Oncology at the [facility] with Marcin Shah MD. She was accompanied today by her family. Final recommendations will be communicated back to the requesting physician by way of the shared medical record, or letter to requesting physician via [place] mail. HISTORY OF PRESENT ILLNESS: Ms. Mcleod is an 82-year-old woman from [place], [place] who was discovered on screening mammogram from July 2022 to have an abnormality within the anterior upper outer quadrant of the right breast. This was confirmed on ultrasound and she underwent stereotactic biopsy on 08/19/2022 with pathology revealing intermediate grade IDC that was ER/CO positive HER2 negative. She has met with [...] tablet crenshaw (more content not included)... Normal [facility] CNOVSPon 09-22-2022 CNOVSP Visit (SP) Office (HEMASA) AHRMAN MCLEOD ([id number]) 1940 F Date Time Provider Department 09/22/22 11:30 AM WALLACE STONE During your visit today, we recorded the following information about you: Temperature Pulse Respiration Blood pressure 97.8 degrees 70/minute 16/minute 137/64 Weight Height 84.8 kg 1.549 m Wallace Stone MD 09/22/2022 5:19 PM Signed PATIENT NAME: Harman Mcleod CLINIC NO.: [id number] ATTENDING PHYSICIAN: Wallace Stone MD DATE OF [...] provisional grade 1 through 2, ER and CO greater than 95% positive, HER2/holden negative with an IHC score of 1+ and FISH negative at [facility]. This patient was subsequently referred to Dr. Iliana Gagnon for surgical consultation. Patient denies any previous history of abnormal mammograms and or breast biopsy. She has had a recent bone density in [place] and was diagnosed with osteoporosis and started on Prolia as well. Patient has a sister who was diagnosed with breast cancer at the age of 82 and her daughter diagnosed with breast cancer at the age of 37. She quit smoking approximately 4 years ago. 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 She [...] mouth daily at bedtime. Cut in half Miogl-7-MIU-EPA-Fish Oil 1,000 mg (120 mg-180 mg) cap [...] high r (more content not included)... Normal [facility] Destinee 09-22-2022 GERRYN Telephone (Smart Lunches) HARMAN MCLEOD ([id number]) 1940 F Date Time Provider Department 09/22/22 [...] daily at bedtime. Cut in half - Psusa-0-EZR-EPA-Fish Oil 1,000 mg (120 mg-180 mg) cap Take 2 g by mouth twice daily. - isosorbide mononitrate ER (IMDUR) 60 mg 24 hr tablet Take 60 mg by mouth twice daily. Problem List As Of Date 09/22/2022 Noted Resolved Hypertension [I10] DM type 2 (diabetes mellitus, type 2) (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 Performed By: #### C [facility] ####[facility] [address] [place], [place] [address]FbMedardo Bowden INFLUENZA A AND B AGon 09-21 INFLUANEGH SEE BELOW Normal [facility] Comment on above: Result Comment: Nega tive for Flu A protein angiten. Infection due to Flu A cannot be ruled out. Flu A angiten in the sample may be below the detection limit of the test. Performed By: #### I NFLUAB ####[facility] [address] [address]Dr. Omid Bowden INFLUBNEGH SEE BELOW Normal [facility] Comment on above: Result Comment: Nega tive for Flu B protein antigen. Infection due to Flu B cannot be ruled out. Flu B antigen in the sample may be below the detection limit of the test. Performed By: #### I NFLUAB ####[facility] [address] [place], [place] [address]Dr. Omid Bowden INFLUENZA A AG Negative Normal NEGATIVE SEE COMMENT [facility] Comment on above: Performed By: #### I NFLUAB ####[facility] [address] [place], [place] [address]Dr. Omid Bowden INFLUENZA B AG Negative Normal NEGATIVE SEE COMMENT [facility] Comment on above: Performed By: #### I NFLUAB ####[facility] [address] [place], [place] [address]Dr. Omid Bowden LIPID PROFILEon 09-16-2022 CHOL-HDL RATIO NORM SEE BELOW Normal [facility] Comment on above: Result Comment: 3.3 - 4.4 LOW RISK 4.4 - 7.1 AVERAGE RISK 7.1 - 11.0 MODERATE RISK >11.0 HIGH RISK Performed By: #### L IPID, BMP #### [facility] [address] [place] [address] Dr. Omid Bowden Cholesterol [Mass/Vol] 210 mg/dL Critically high <=200 [facility] Comment on above: Performed By: #### L IPID, BMP #### [facility] [address] [address] [address] Omid Bowden Cholesterol in HDL [Mass/Vol] 49 mg/dL Normal 40-60 [facility] Comment on above: Performed By: #### L IPID, BMP #### [facility] [address] [place] [address] Dr. Omid Bowden Cholesterol in LDL [Mass/Vol] 84.2 mg/dL Normal [facility] Comment on above: Performed By: #### L IPID, BMP #### [facility] [address] [address] [address] Omid Bowden Cholesterol.total/Chol esterol in HDL [Mass ratio] 4.3 {ratio} Normal [facility] Comment on above: Performed By: #### L IPID, BMP #### [facility] [address] [address] [address] mOid Bowden HDL NORMAL > or = 60 mg/dl - LO W CARDIOVASCULAR RISK <40 mg/dl - HIGH CARDIOVASCULAR RISK Normal [facility] Comment on above: Performed By: #### L IPID, BMP #### [facility] [address] [place] [address] Dr. Omid Bowden LDL CALC NORMAL SEE BELOW Normal [facility] Comment on above: Result Comment: <100 mg/dl OPTIMAL 100 - 129 mg/dl NEAR OR ABOVE OPTIMAL 130 - 159 mg/dl BORDERLINE HIGH 160 - 189 mg/dl HIGH >190 mg/dl VERY HIGH Performed By: #### L IPID, BMP #### [facility] [address] [place] [address] Dr. Omid Bowden Triglyceride [Mass/Vol] 384 mg/dL Critically high <=150 [facility] Comment on above: Performed By: #### L IPID, BMP #### [facility] [address] [place] [address] Dr. Omid Bowden VLDL CALC 76.8 mg/dL Normal [facility] Comment on above: Performed By: #### L IPID, BMP #### [facility] [address] [place] [address] Dr. Omid Bowden PROF CHEM 8 (BAS METB)on Anion gap [Moles/Vol] 10.8 mmol/L Normal [facility] Comment on above: Performed By: #### L IPID, BMP #### [facility] [address] [place] [address] Dr. Omid Bowden Calcium [Mass/Vol] 8.8 mg/dL Normal 8.5-10.1 [facility] Comment on above: Performed By: #### L IPID, BMP #### [facility] [address] [address] [address] Omid Bowden Chloride [Moles/Vol] 98 mmol/L Normal 98-107 [facility] Comment on above: Performed By: #### L IPID, BMP #### [facility] [address] [address] [address] Omid Bowden CO2 [Moles/Vol] 34.5 mmol/L Critically high 21.0-32.0 [facility] Comment on above: Performed By: #### L IPID, BMP #### [facility] [address] [address] [address] Omid Bowden Creatinine [Mass/Vol] 1.17 mg/dL Critically high 0.55-1.02 [facility] Comment on above: Performed By: #### L IPID, BMP #### [facility] [address] [place] [address] Dr. Omid Bowden EGFR-AF STATELESS 54 mL/min/1.73m2 Critically low >=60 [facility] Comment on above: Performed By: #### L IPID, BMP #### [facility] [address] [address] [address] Omid Bowden EGFR-NON AF STATELESS 45 mL/min/1.73m2 Critically low >=60 [facility] Comment on above: Performed By: #### L IPID, BMP #### [facility] [address] [address] [address] Omid Bowden Glucose [Mass/Vol] 193 mg/dL Critically high 74-106 [facility] Comment on above: Performed By: #### L IPID, BMP #### [facility] [address] [address] [address] Omid Bowden Potassium [Moles/Vol] 3.3 mmol/L Critically low 3.5-5.1 [facility] Comment on above: Performed By: #### L IPID, BMP #### [facility] [address] [address] [address] Omid Bowden Sodium [Moles/Vol] 140 mmol/L Normal 136-145 [facility] Comment on above: Performed By: #### L IPID, BMP #### [facility] [address] [place], [place] [address] Dr. Omid Bowden Urea nitrogen [Mass/Vol] 31.0 mg/dL Critically high 7.0-18.0 [facility] Comment on above: Performed By: #### L IPID, BMP #### [facility] [address] [place], [place] [address] Dr. Omid Bowden Urea nitrogen/Creatinine [Mass ratio] 26.5 mg/mg Normal [facility] Comment on above: Performed By: #### L IPID, BMP #### [facility] [address] [place], [place] [address] Dr. Omid Bowden Facesheeton 09-13-2022 Facesheet [id number] 0CD:127 Normal [facility] Consultation Noteon 09-01-20 Consultation Note [id number] 0CD:127 Normal [facility] ED Note-Physicianon 09-01-20 ED Note-Physician [id number]#1.0 0CD:127 Normal [facility] Lab Reportson 09-01-2022 Lab Reports [id number]#1.0 0CD:127 Normal [facility] Lab Reports [id number] 0CD:127 Normal [facility] Physician Referralon 022 Physician Referral [id number]#1.0 0CD:127 Normal [facility] C. DIFF PCRon 08-23-2022 C. DIFFICILE PCR Negative Normal NEGATIVE [facility] Comment on above: Performed By: #### C DIFPOC ####[facility] [address] [place], [place] [address]Xl. Yilan Bowden CBC AUTO DIFFon 08-19-2022 BASO # 0.0 103/ul Normal 0.0-0.1 [facility] Comment on above: Performed By: #### C BC ####[facility] [address] [address]Dr. Omid Bowden Basophils/100 WBC (Bld) 0.3 % Normal 0.2-2.0 [facility] Comment on above: Performed By: #### C BC ####[facility] [address] [address]Dr. Omid Bowden EO # 0.5 103/ul Normal 0.0-0.7 [facility] Comment on above: Performed By: #### C BC ####[facility] [address] [address]Dr. Omid Kal Eosinophils/100 WBC (Bld) 3.2 % Normal 0.9-7.0 [facility] Comment on above: Performed By: #### C BC ####[facility] [address] [address]Dr. Omid Bowden Erythrocyte distribution width (RBC) [Ratio] 14.1 % Normal 11.0-15.0 [facility] Comment on above: Performed By: #### C BC ####[facility] [address] [address]Dr. Omid Bowden Hematocrit (Bld) [Volume fraction] 36.1 % Normal 36.0-48.0 [facility] Comment on above: Performed By: #### C BC ####[facility] [address] [address]Dr. Omid Bowden Hemoglobin (Bld) [Mass/Vol] 11.7 g/dL Critically low 12.0-16.0 [facility] Comment on above: Performed By: #### C BC ####[facility] [address] [address]Dr. Omid Kal IG # 0.08 10e3/ul Critically high 0.00-0.03 [facility] Comment on above: Performed By: #### C BC ####[facility] [address] [id number]. Omid Bowden IG % 0.5 % Normal 0.0-0.5 [facility] Comment on above: Performed By: #### C BC ####[facility] [address] [id number]. Omid Bowden LYMPH # 1.2 103/ul Normal 1.2-3.8 [facility] Comment on above: Performed By: #### C BC ####[facility] [address] [phone]. Omid Bowden Lymphocytes/100 WBC (Bld) 7.5 % Critically low 20.5-60.0 [facility] Comment on above: Performed By: #### C BC ####[facility] [address] [phone]. Aixamegan Bowden MANUAL DIFF REQ NO Normal [facility] Comment on above: Performed By: #### C BC ####[facility] [address] [id number]. Omid Bowden MCH (RBC) [Entitic mass] 29.2 pg Normal 26.7-34.0 [facility] Comment on above: Performed By: #### C BC ####[facility] [address] [phone]. Omid Bowden MCHC (RBC) [Mass/Vol] 32.4 g/dL Normal 29.9-35.2 [facility] Comment on above: Performed By: #### C BC ####[facility] [address] [phone]. Omid Bowden MCV (RBC) [Entitic vol] 90.0 fL Normal 81.0-99.0 [facility] Comment on above: Performed By: #### C BC ####[facility] [address] [id number]. Omid Bowden MONO # 1.0 103/ul Critically high 0.3-0.8 [facility] Comment on above: Performed By: #### C BC ####[facility] [address] [phone]. Omid Bowden Monocytes/100 WBC (Bld) 6.8 % Normal 1.7-12.0 [facility] Comment on above: Performed By: #### C BC ####[facility] [address] [id number]. Omid Bowden NEUT # 12.5 103/ul Critically high 1.4-6.5 [facility] Comment on above: Performed By: #### C BC ####[facility] [address] [id number]. Omid Bowden Neutrophils/100 WBC (Bld) 81.7 % Critically high 43.0-75.0 [facility] Comment on above: Performed By: #### C BC ####[facility] [address] [address]Dr. Omid Bowden Platelet mean volume (Bld) [Entitic vol] 8.9 fL Critically low 9.5-13.5 [facility] Comment on above: Performed By: #### C BC ####[facility] [facility] [id number] [place] [id number]. Omid Bowden PLT 252 103/ul Normal 150-450 [facility] Comment on above: Performed By: #### C BC ####[facility] [address] [place] [id number]. Omid Bowden RBC 4.01 106/ul Critically low 4.20-5.40 [facility] Comment on above: Performed By: #### C BC ####[facility] [address] [place] [id number]. Omid Bowden WBC 15.3 103/ul Critically high 4.0-11.0 [facility] Comment on above: Performed By: #### C BC ####[facility] [address] [place] [id number]. Omid Bowden IRONon 08-19-2022 Iron [Mass/Vol] 59.0 ug/dL Normal 50.0-170.0 [facility] Comment on above: Performed By: #### H GB #### [facility] [address] [address] [address] Omid Bowden MAMMO POST BIOPSY RIGHTon MAMMO POST BIOPSY RIGHT Patient: HARMAN MCLEOD Exam Date: 08/19/2022 : 1940 Gender:F Ordering : DR MATEUS PERRY . Admission #: [id number] Family : Order #: [id number] CLICK HERE TO VIEW EXAM This report includes an Addendum and supersedes previous reports for this exam. RADIOLOGY REPORT PROCEDURE: MAMMOGRAM POST BIOPSY IMAGES COMPARISON: MG MAMM RT DIAG FU, 08/08/2022. INDICATIONS: Mammographic mass of right breast [...] MD on 09/06/2022 at 09:57 Normal [facility] PROTIMEon 08-19-2022 INR Coag (PPP) [Relative time] 0.99 {INR} Normal [facility] Comment on above: Performed By: #### P T, PTT ####[facility] [address] [place] [address]Dr. Omid Bowden INR GUIDELINES SEE BELOW Normal [facility] Comment on above: Result Comment: PERLITA RED INR: 2.0 - 3.0 CONDITIONS NOT LISTED BELOW 2.5 - 3.5 FOR PROSTHETIC HEART VALVE REPLACEMENT 2.5 - 3.5 RECURRENT THROMBOSIS Performed By: #### P T, PTT ####[facility] [address] [place] [address]Dr. Omid Bowden PT Coag (PPP) [Time] 10.7 s Normal 9.0-11.6 [facility] Comment on above: Performed By: #### P T, PTT ####[facility] [address] [place], [place] [address]AaMedardo Bowden PTTon 08-19-2022 aPTT Coag (Bld) [Time] 26.0 s Normal 22.3-36.2 Th e [facility] Comment on above: Performed By: #### P T, PTT ####[facility] [address] [place], [place] [address]Px. Omid Bowden US VAC ASST BX BRST RT W CLI Jose Maria 08-19-2022 US VAC ASST BX BRST RT W CLIP Patient: HARMAN MCLEOD Exam Date: 08/19/2022 : 1940 Gender:F Ordering : DR MATEUS PERRY . Admission #: [id number] Family : Order #: [id number] CLICK HERE TO VIEW EXAM This report [...] Bauman MD on 09/06/2022 at 09:55 Normal [facility] CULTURE URINEon 08-16-2022 CULTURE URINE Isolate 1 [...] R F Nitrofurantoin <=16 S F Normal [facility] Comment on above: Performed By: #### U RCX ####[facility] [address] [place] [address]Dr. Omid Bowden CARDIAC ADILIA ADMITon 022 CK [Catalytic activity/Vol] 128 U/L Normal 26-192 [facility] Comment on above: Performed By: #### L IPID, BMP #### [facility] [address] [place] [address] Dr. Omid Bowden CK.MB [Mass/Vol] 2.88 ng/mL Normal <=3.60 [facility] Comment on above: Performed By: #### L IPID, BMP #### [facility] [address] [place] [address] Dr. Omid Bowden HSTROP 24.1 pg/mL Normal 4.0-51.3 [facility] Comment on above: Result Comment: CUT- OFF POINTS HAVE BEEN ESTABLISHED BASED ON THE FOURTH UNIVERSAL DEFINITIONS OF MYOCARDIAL INFARCTION. THE UPPER REFERENCE LIMIT (URL) OF TROPONIN, DEFINED THE 99TH PERCENTILE OF cTnI DISTRIBUTION IN A REFERENCE POPULATION, HAS BEEN CONFIRMED THE DECISION THRESHOLD FOR VA DIAGNOSIS. Performed By: #### L IPID, BMP #### [facility] [address] [address] [address] Omid Bowden JACINTA 61 ng/mL Normal 9-82 [facility] Comment on above: Performed By: #### L IPID, BMP #### [facility] [address] [address] [address] Omid Bowden CBC AUTO DIFFon 08-14-2022 BASO # 0.0 103/ul Normal 0.0-0.1 [facility] Comment on above: Performed By: #### H GB #### [facility] [address] [address] [address] Omid Bowden Basophils/100 WBC (Bld) 0.4 % Normal 0.2-2.0 [facility] Comment on above: Performed By: #### H GB #### [facility] [address] [address] [address] Omid Bowden EO # 0.3 103/ul Normal 0.0-0.7 [facility] Comment on above: Performed By: #### H GB #### [facility] [address] [address] [address] Omid Bowden Eosinophils/100 WBC (Bld) 2.6 % Normal 0.9-7.0 [facility] Comment on above: Performed By: #### H GB #### [facility] [address] [place] [address] Dr. Omid Bowden Erythrocyte distribution width (RBC) [Ratio] 14.1 % Normal 11.0-15.0 [facility] Comment on above: Performed By: #### H GB #### [facility] [address] [place] [address] Dr. Omid Bowden Hematocrit (Bld) [Volume fraction] 35.5 % Critically low 36.0-48.0 [facility] Comment on above: Performed By: #### H GB #### [facility] [address] [place] [address] Dr. Omid Bowden Hemoglobin (Bld) [Mass/Vol] 11.6 g/dL Critically low 12.0-16.0 [facility] Comment on above: Performed By: #### H GB #### [facility] [address] [place] [address] Dr. Omid Bowden IG # 0.06 10e3/ul Critically high 0.00-0.03 [facility] Comment on above: Performed By: #### H GB #### [facility] [address] [place] [address] Dr. Omid oBwden IG % 0.6 % Critically high 0.0-0.5 [facility] Comment on above: Performed By: #### H GB #### [facility] [address] [place] [address] Dr. Omid Bowden LYMPH # 3.4 103/ul Normal 1.2-3.8 [facility] Comment on above: Performed By: #### H GB #### [facility] [address] [place] [address] Dr. Omid Bowden Lymphocytes/100 WBC (Bld) 35.5 % Normal 20.5-60.0 [facility] Comment on above: Performed By: #### H GB #### [facility] [address] [place] [address] Dr. Omid Bowden MANUAL DIFF REQ NO Normal [facility] Comment on above: Performed By: #### H GB #### [facility] [address] [place] [address] Dr. Omid Bowden MCH (RBC) [Entitic mass] 29.5 pg Normal 26.7-34.0 [facility] Comment on above: Performed By: #### H GB #### [facility] [address] [place] [address] Dr. Omid Bowden MCHC (RBC) [Mass/Vol] 32.7 g/dL Normal 29.9-35.2 [facility] Comment on above: Performed By: #### H GB #### [facility] [address] [place] [address] Dr. Omid Bowden MCV (RBC) [Entitic vol] 90.3 fL Normal 81.0-99.0 [facility] Comment on above: Performed By: #### H GB #### [facility] [address] [place] [address] Dr. Omid Bowden MONO # 1.0 103/ul Critically high 0.3-0.8 [facility] Comment on above: Performed By: #### H GB #### [facility] [address] [place] [address] Dr. Omid Bowden Monocytes/100 WBC (Bld) 10.5 % Normal 1.7-12.0 [facility] Comment on above: Performed By: #### H GB #### [facility] [address] [address] [address] Omid Bowden NEUT # 4.8 103/ul Normal 1.4-6.5 [facility] Comment on above: Performed By: #### H GB #### [facility] [address] [address] [address] Omid Bowden Neutrophils/100 WBC (Bld) 50.4 % Normal 43.0-75.0 [facility] Comment on above: Performed By: #### H GB #### [facility] [address] [address] [address] Omid Bowden Platelet mean volume (Bld) [Entitic vol] 9.1 fL Critically low 9.5-13.5 [facility] Comment on above: Performed By: #### H GB #### [facility] [address] [address] [address] Omid Bowden PLT 276 103/ul Normal 150-450 [facility] Comment on above: Performed By: #### H GB #### [facility] [address] [address] [address] Omid Bowden RBC 3.93 106/ul Critically low 4.20-5.40 [facility] Comment on above: Performed By: #### H GB #### [facility] [address] [address] [address] Omid Bowden WBC 9.5 103/ul Normal 4.0-11.0 [facility] Comment on above: Performed By: #### H GB #### [facility] [address] [address] [address] Omid Bowden ER URINE PROFILEon 2 Bilirubin Ql (U) Negative Normal NEGATIVE [facility] Comment on above: Performed By: #### U MICRO, ERUR ####[facility] [address] [place] [address]Dr. Omid Bowden Clarity (U) CLEAR Normal CLEAR [facility] Comment on above: Performed By: #### U MICRO, ERUR ####[facility] [address] [place] [address]Dr. Omid Bowden Color (U) LT. YELLOW Normal YELLOW [facility] Comment on above: Performed By: #### U MICRO, ERUR ####[facility] [address] [place] [address]Dr. Omid Bowden ERUAHD A micrscopic examination will be performed if indicated. Normal [facility] Comment on above: Performed By: #### U MICRO, ERUR ####[facility] [address] [place] [address]Dr. Omid Bowden Glucose Ql (U) Negative Normal NEGATIVE [facility] Comment on above: Performed By: #### U MICRO, ERUR ####[facility] [address] [place], [place] [address]Dr. Omid Bowden Hemoglobin Ql (U) Negative Normal NEGATIVE [facility] Comment on above: Performed By: #### U MICRO, ERUR ####[facility] [address] [place], [place] [address]Dr. Omid Bowden Ketones Ql (U) Negative Normal NEGATIVE [facility] Comment on above: Performed By: #### U MICRO, ERUR ####[facility] [address] [place], [place] [address]Dr. Omid Bowden LEUKOCYTES TRACE Abnormal NEGATIVE [facility] Comment on above: Performed By: #### U MICRO, ERUR ####[facility] [address] [place] [address]Dr. Omdi Bowden Nitrite Ql (U) Negative Normal NEGATIVE [facility] Comment on above: Performed By: #### U MICRO, ERUR ####[facility] [address] [place], [place] [address]Dr. Omid Bowden pH (U) 6.0 [pH] Normal 5-9 [facility] Comment on above: Performed By: #### U MICRO, ERUR ####[facility] [address] [place], [place] [address]Dr. Omid Bowden SPEC GRAVITY 1.020 Normal 1.005-<=1.0 25 [facility] Comment on above: Performed By: #### U MICRO, ERUR ####[facility] [address] [place] [address]DrMedardo Bowden UA PROTEIN Negative Normal NEGATIVE/ TRACE [facility] Comment on above: Performed By: #### U MICRO, ERUR ####[facility] [address] [place] [address]Dr. Omid Bowden UR MICRO IND INDICATED Normal [facility] Comment on above: Performed By: #### U MICRO, ERUR ####[facility] [address] [place] [address]Dr. Omid Bowden Urobilinogen Qn (U) 0.2 {Jose'U}/dL Normal 0.2 - 1. 0 [facility] Comment on above: Performed By: #### U MICRO, ERUR ####[facility] [address] [place], [place] [address]DrMedardo Bowden OCC BLD IMMUNO SCREENon OCCULT BLOOD Negative Normal NEGATIVE [facility] Comment on above: Performed By: #### O BSCRN #### [facility] [address] [place] [address] Dr. Omid Bowden PROF CHEM 8 (BAS METB)on Anion gap [Moles/Vol] 5.5 mmol/L Normal [facility] Comment on above: Performed By: #### L IPID, BMP #### [facility] [address] [place] [address] Dr. Omid Bowden Calcium [Mass/Vol] 8.6 mg/dL Normal 8.5-10.1 [facility] Comment on above: Performed By: #### L IPID, BMP #### [facility] [address] [place] [address] Dr. Omid Bowden Chloride [Moles/Vol] 103 mmol/L Normal 98-107 [facility] Comment on above: Performed By: #### L IPID, BMP #### [facility] [address] [place] [address] Dr. Omid Bowden CO2 [Moles/Vol] 31.8 mmol/L Normal 21.0-32.0 [facility] Comment on above: Performed By: #### L IPID, BMP #### [facility] [address] [address] [address] Omid Bowden Creatinine [Mass/Vol] 0.99 mg/dL Normal 0.55-1.02 [facility] Comment on above: Performed By: #### L IPID, BMP #### [facility] [address] [address] [address] Omid Bowden EGFR-AF STATELESS >60 Normal >=60 [facility] Comment on above: Performed By: #### L IPID, BMP #### [facility] [address] [address] [address] Omid Bowden EGFR-NON AF STATELESS 54 mL/min/1.73m2 Critically low >=60 [facility] Comment on above: Performed By: #### L IPID, BMP #### [facility] [address] [address] [address] Omid Bowden Glucose [Mass/Vol] 112 mg/dL Critically high 74-106 T [facility] Comment on above: Performed By: #### L IPID, BMP #### [facility] [address] [address] [address] Omid Bowden Potassium [Moles/Vol] 3.3 mmol/L Critically low 3.5-5.1 [facility] Comment on above: Performed By: #### L IPID, BMP #### [facility] [address] [address] [address] Omid Bowden Sodium [Moles/Vol] 137 mmol/L Normal 136-145 [facility] Comment on above: Performed By: #### L IPID, BMP #### [facility] [address] [address] [address] Omid Bowden Urea nitrogen [Mass/Vol] 20.0 mg/dL Critically high 7.0-18.0 [facility] Comment on above: Performed By: #### L IPID, BMP #### [facility] [address] [address] [address] Omid Bowden Urea nitrogen/Creatinine [Mass ratio] 20.2 mg/mg Normal [facility] Comment on above: Performed By: #### L IPMOHSEN, BMP #### [facility] [address] [address] [address] Omid Bowden URINE MICROSCOPIC ONLYon BACTERIA TRACE Abnormal NONE SEEN [facility] Comment on above: Performed By: #### U MICRO, ERUR ####[facility] [address] [place] [address]Dr. Omid Bowden Bacteria identified Cx Nom (U) INDICATED Normal [facility] Comment on above: Performed By: #### U MICRO, ERUR ####[facility] [address] [place] [address]Dr. Omid Bowden CAST NONE SEEN Normal NONE SEEN [facility] Comment on above: Performed By: #### U MICRO, ERUR ####[facility] [address] [place] [address]Dr. Omid Bowden Crystals LM Nom (Urine sed) NONE SEEN Normal NONE SEEN [facility] Comment on above: Performed By: #### U MICRO, ERUR ####[facility] [address] [place] [address]Dr. Omid Bowden Epithelial cells LM Ql (Urine sed) FEW Abnormal NONE SEEN /RARE [facility] Comment on above: Performed By: #### U MICRO, ERUR ####[facility] [address] [place], [place] [address]Dr. Omid Bowden MUCOUS NONE SEEN Normal NONE SEEN [facility] Comment on above: Performed By: #### U MICRO, ERUR ####[facility] [address] [place] [address]Dr. Omid Bowden RBC 0-2 Normal 0-2 [facility] Comment on above: Performed By: #### U MICRO, ERUR ####[facility] [address] [place], [place] [address]Dr. Omid Bowden WBC 20-50 Abnormal NONE SEEN [facility] Comment on above: Performed By: #### U MICRO, ERUR ####[facility] [address] [place], [place] [address]WvDr. Omid Bowden XR CHEST 1 Von 08-14-2022 [...] [place]AIL[place] Date: 2022-08-14 00:46 Normal [facility] Covid-19 PCR (CVDTBH)on SARS-CoV-2 (COVID-19) RNA MARII+probe Ql (Unsp spec) Not detected Normal NOT DETECTED [facility] Comment on above: Result Comment: When diagnostic [...] for this test is supported by the Equality of Health and Human Service's declaration that [...] be used). Performed By: #### C VDTB #### [facility] [address] [place], [place] [address] Dr. Omid Bowden MG MAMM RT DIAG FUon 022 MG MAMM RT DIAG FU Patient: HARMAN MCLEOD Exam Date: 08/08/2022 : 1940 Gender:F Ordering : DR MATEUS PERRY . Admission #: [id number] Family : Order #: [id number] CLICK HERE TO VIEW EXAM RADIOLOGY REPORT [...] uterine cancer at age 39. LOCATION: [facility] BREAST COMPOSITION: Scattered areas fibroglandular density. FINDINGS: [...] George M.D. on 08/08/2022 at 15:28 Normal [facility] PROF CHEM 8 (BAS METB)on Anion gap [Moles/Vol] 9.3 mmol/L Normal [facility] Comment on above: Performed By: #### B MP #### [facility] [address] [address] [address] Omid Bowden Calcium [Mass/Vol] 8.1 mg/dL Critically low 8.5-10.1 Th e [facility] Comment on above: Performed By: #### B MP #### [facility] [address] [address] [address] Omid Bowden Chloride [Moles/Vol] 100 mmol/L Normal 98-107 [facility] Comment on above: Performed By: #### B MP #### [facility] [address] [address] [address] Omid Bowden CO2 [Moles/Vol] 31.9 mmol/L Normal 21.0-32.0 [facility] Comment on above: Performed By: #### B MP #### [facility] [address] [address] [address] Omid Bowden Creatinine [Mass/Vol] 1.25 mg/dL Critically high 0.55-1.02 [facility] Comment on above: Performed By: #### B MP #### [facility] [address] [place] [address] Dr. Omid Bowden EGFR-AF STATELESS 50 mL/min/1.73m2 Critically low >=60 [facility] Comment on above: Performed By: #### B MP #### [facility] [address] [place] [address] Dr. Omid Bowden EGFR-NON AF STATELESS 41 mL/min/1.73m2 Critically low >=60 [facility] Comment on above: Performed By: #### B MP #### [facility] [address] [place] [address] Dr. Omid Bowden Glucose [Mass/Vol] 215 mg/dL Critically high 74-106 [facility] Comment on above: Performed By: #### B MP #### [facility] [address] [address] [address] Omid Bowden Potassium [Moles/Vol] 3.2 mmol/L Critically low 3.5-5.1 [facility] Comment on above: Performed By: #### B MP #### [facility] [address] [address] [address] Omid Bowden Sodium [Moles/Vol] 138 mmol/L Normal 136-145 [facility] Comment on above: Performed By: #### B MP #### [facility] [address] [address] [address] Omid Bowden Urea nitrogen [Mass/Vol] 32.0 mg/dL Critically high 7.0-18.0 [facility] Comment on above: Performed By: #### B MP #### [facility] [address] [place], [place] [address] Dr. Omid Bowden Urea nitrogen/Creatinine [Mass ratio] 25.6 mg/mg Normal [facility] Comment on above: Performed By: #### B MP #### [facility] [address] [place], [place] [address] Dr. Omid Bowden US BREAST RIGHT LIMITEDon US BREAST RIGHT LIMITED Patient: HARMAN MCLEOD Exam Date: 08/08/2022 : 1940 Gender:F Ordering : DR MATEUS PERRY . Admission #: [id number] Family : Order #: [id number] CLICK HERE TO VIEW EXAM RADIOLOGY REPORT [...] uterine cancer at age 39. LOCATION: [facility] BREAST COMPOSITION: Scattered areas fibroglandular density. FINDINGS: [...] M.D. on 08/08/2022 at 15:28 Normal [facility] CALCIUMon 08-02-2022 Calcium [Mass/Vol] 8.9 mg/dL Normal 8.5-10.1 [facility] Comment on above: Performed By: #### H GB #### [facility] [address] [address] [address] Omid Bowden CREATININEon 08-02-2022 Creatinine [Mass/Vol] 1.19 mg/dL Critically high 0.55-1.02 [facility] Comment on above: Performed By: #### H GB #### [facility] [address] [address] [address] Omid Bowden EGFR-AF STATELESS 53 mL/min/1.73m2 Critically low >=60 [facility] Comment on above: Performed By: #### H GB #### [facility] [address] [place] [address] Dr. Omid Bowden EGFR-NON AF STATELESS 44 mL/min/1.73m2 Critically low >=60 [facility] Comment on above: Performed By: #### H GB #### [facility] [address] [place] [address] Dr. Omid Bowden MG MAMM SCREEN 3D DAVID CADon 07-19-2022 MG MAMM SCREEN 3D DAVID CAD Patient: HARMAN MCLEOD Exam Date: 07/19/2022 : 1940 Gender:F Ordering : DR MATEUS PERRY . Admission #: [id number] Family : Order #: [id number] CLICK HERE TO VIEW EXAM RADIOLOGY REPORT [...] uterine cancer at age 39. LOCATION: [facility] BREAST COMPOSITION: Scattered areas fibroglandular density. [...] Bauman MD on 07/20/2022 at 07:33 Normal [facility] XR DEXA BONE DENSITYon 07-19 XR DEXA [...] by: JUDSON BAUMAN Date: 2022-07-19 20:17 Normal [facility] CALCIUM, IONIC (POC)on 06-28 POC Ionized Calcium 1.21 mmol/L 1.15 - 1 .33 mmol/L [facility] CHLORIDE (POC)on 06-28-2022 Chloride [Moles/Vol] 103 mmol/L 98 - 10 7 mmol/L [facility] Creatinine W/GFR Point of Ca reon 06-28-2022 Creatinine [Mass/Vol] 0.93 mg/dL 0.51 - 1.19 mg/dL [facility] [employer] eGFR, POC mL/min/1.73 m2 [facility] Comment on above: Effective Jun 13, 2022 [...] affects renal tubular secretion. Lactic Acid, POCon 2 POC Lactic Acid 1.56 mmol/L High 0.56 - 1.39 mmol/L [facility] No Panel Informationon 06-28 Interpretation and review of laboratory results Abnormal [facility] Glucose Fingerstickon Glucose [Mass/Vol] 135 mg/dL High 65 - 105 mg/dL [facility] Interpretation and review of laboratory results Abnormal [facility] Glucoseon 06-28-2022 Glucose [Mass/Vol] 147 mg/dL High 74 - 100 mg/dL [facility] POCT urea (BUN)on 06-28-2022 Urea nitrogen [Mass/Vol] 20 mg/dL 8 - 26 mg/dL [facility] POTASSIUM (POC)on 06-28-2022 Potassium [Moles/Vol] 3.7 mmol/L 3.5 - 4.5 mmol/L [facility] SODIUM (POC)on 06-28-2022 Sodium [Moles/Vol] 141 mmol/L 138 - 146 mmol/L [facility] PROF CHEM 8 (BAS METB)on Anion gap [Moles/Vol] 9.0 mmol/L Normal [facility] Comment on above: Performed By: #### B MP ####[facility] [place] [address] [address]Dr. Omid Bowden Calcium [Mass/Vol] 9.0 mg/dL Normal 8.5-10.1 The [facility] Comment on above: Performed By: #### B MP ####[facility] [address] [address]Dr. Omid Bowden Chloride [Moles/Vol] 98 mmol/L Normal 98-107 [facility] Comment on above: Performed By: #### B MP ####[facility] [address] [address]Dr. Omid Bowden CO2 [Moles/Vol] 33.2 mmol/L Critically high 21.0-32.0 [facility] Comment on above: Performed By: #### B MP ####[facility] [address] [address]Dr. Omid Bowden Creatinine [Mass/Vol] 1.32 mg/dL Critically high 0.55-1.02 [facility] Comment on above: Performed By: #### B MP ####[facility] [address] [place], [place] [address]Dr. Omid Kal EGFR-AF STATELESS 47 mL/min/1.73m2 Critically low >=60 [facility] Comment on above: Performed By: #### B MP ####[facility] [address] [place], [place] [address]Dr. Aixamegan Kal EGFR-NON AF STATELESS 39 mL/min/1.73m2 Critically low >=60 [facility] Comment on above: Performed By: #### B MP ####[facility] [address] [place], [place] [address]Dr. Aixamegan Bowden Glucose [Mass/Vol] 220 mg/dL Critically high 74-106 T [facility] Comment on above: Performed By: #### B MP ####[facility] [address] [place], [place] [address]Dr. Omid Bowden Potassium [Moles/Vol] 3.2 mmol/L Critically low 3.5-5.1 [facility] Comment on above: Performed By: #### B MP ####[facility] [address] [place], [place] [address]Dr. Omid Bowden Sodium [Moles/Vol] 137 mmol/L Normal 136-145 [facility] Comment on above: Performed By: #### B MP ####[facility] [address] [place], [place] [address]Dr. Omid Kal Urea nitrogen [Mass/Vol] 31.0 mg/dL Critically high 7.0-18.0 [facility] Comment on above: Performed By: #### B MP ####[facility] [address] [place] [address]Og. Omid Bowden Urea nitrogen/Creatinine [Mass ratio] 23.5 mg/mg Normal [facility] Comment on above: Performed By: #### B ####[facility] [address] [place], [place] [address]Pk. Omid Bowden ECHOCARDIO M/2D COMPLETEon 0 04-12-2022 ECHOCARDIO M/2D COMPLETE Patient: HARMAN MCLEOD Exam Date: 04/12/2022 : 1940 Gender:F Ordering : SONALI MCKINNEY [facility] Admission #: [id number] Family : Order #: [id number] CLICK HERE TO VIEW EXAM ECHOCARDIOGRAM REPORT [...] Keyes M.D. on 04/12/2022 at 19:15 Normal [facility] PROF CHEM 8 (BAS METB)on Anion gap [Moles/Vol] 12.4 mmol/L Normal [facility] Comment on above: Performed By: #### B MP ####[facility] [address] [address]Dr. Omid Bowden Calcium [Mass/Vol] 9.1 mg/dL Normal 8.5-10.1 [facility] Comment on above: Performed By: #### B MP ####[facility] [address] [address]Dr. Omid Bowden Chloride [Moles/Vol] 100 mmol/L Normal 98-107 [facility] Comment on above: Performed By: #### B MP ####[facility] [address] [place], [place] [address]Dr. Omid Bowden CO2 [Moles/Vol] 33.0 mmol/L Critically high 21.0-32.0 [facility] Comment on above: Performed By: #### B MP ####[facility] [address] [place], [place] [address]Dr. Omid Bowden Creatinine [Mass/Vol] 1.15 mg/dL Critically high 0.55-1.02 [facility] Comment on above: Performed By: #### B MP ####[facility] [address] [address]Dr. Omid Bowden EGFR-AF STATELESS 55 mL/min/1.73m2 Critically low >=60 [facility] Comment on above: Performed By: #### B MP ####[facility] [address] [place], [place] [address]Dr. Omid Bowden EGFR-NON AF STATELESS 46 mL/min/1.73m2 Critically low >=60 [facility] Comment on above: Performed By: #### B MP ####[facility] [address] [place], [place] [address]Dr. Omid Bowden Glucose [Mass/Vol] 167 mg/dL Critically high 74-106 T [facility] Comment on above: Performed By: #### B MP ####[facility] [address] [address]Dr. Omid Bowden Potassium [Moles/Vol] 3.4 mmol/L Critically low 3.5-5.1 [facility] Comment on above: Performed By: #### B MP ####[facility] [address] [address]Dr. Omid Bowden Sodium [Moles/Vol] 142 mmol/L Normal 136-145 [facility] Comment on above: Performed By: #### B MP ####[facility] [address] [address]Dr. Omid Bowden Urea nitrogen [Mass/Vol] 23.0 mg/dL Critically high 7.0-18.0 [facility] Comment on above: Performed By: #### B MP ####[facility] [address] [place], [place] [address]Dr. Omid Bowden Urea nitrogen/Creatinine [Mass ratio] 20.0 mg/mg Normal [facility] Comment on above: Performed By: #### B MP ####[facility] [address] [place], [place] [address]Dr. Omid Bowden SYMPTOMATIC COVID-19 ANTIGEN on 03-16-2022 EUA Statement SEE BELOW Normal [facility] Comment on above: Result Comment: This test [...] Performed By: #### L IPID, BMP #### [facility] [address] [place] [address] Dr. Omid Bowden SARS-CoV-2 (COVID-19) RNA MARII+probe Ql (Unsp spec) Positive Critically abnormal NEGATIVE [facility] Comment on above: Performed By: #### L IPID, BMP #### [facility] [address] [place] [address] Dr. Omid Bowden HEMOGLOBINon 03-15-2022 Hemoglobin (Bld) [Mass/Vol] 12.3 g/dL Normal 12.0-16.0 [facility] Comment on above: Performed By: #### H GB #### [facility] [address] [place] [address] Dr. Omid Bowden BNPon 02-15-2022 Natriuretic peptide B (Bld) [Mass/Vol] 598.0 pg/mL Normal <=1,800.0 [facility] Comment on above: Performed By: #### L IPID, BMP #### [facility] [address] [place] [address] Dr. Omid Bowden PROF CHEM 8 (BAS METB)on Anion gap [Moles/Vol] 11.9 mmol/L Normal [facility] Comment on above: Performed By: #### L IPID, BMP #### [facility] [address] [place] [address] Dr. Omid Bowden Calcium [Mass/Vol] 9.1 mg/dL Normal 8.5-10.1 [facility] Comment on above: Performed By: #### L IPID, BMP #### [facility] [address] [place] [address] Dr. Omid Bowden Chloride [Moles/Vol] 98 mmol/L Normal 98-107 [facility] Comment on above: Performed By: #### L IPID, BMP #### [facility] [address] [place] [address] Dr. Omid Bowden CO2 [Moles/Vol] 33.2 mmol/L Critically high 21.0-32.0 [facility] Comment on above: Performed By: #### L IPID, BMP #### [facility] [address] [address] [address] Omid Bowden Creatinine [Mass/Vol] 1.28 mg/dL Critically high 0.55-1.02 [facility] Comment on above: Performed By: #### L IPID, BMP #### [facility] [address] [address] [address] Omid Bowden EGFR-AF STATELESS 49 mL/min/1.73m2 Critically low >=60 [facility] Comment on above: Performed By: #### L IPID, BMP #### [facility] [address] [place] [address] Dr. Omid Bowden EGFR-NON AF STATELESS 40 mL/min/1.73m2 Critically low >=60 [facility] Comment on above: Performed By: #### L IPID, BMP #### [facility] [address] [address] [address] Omid Bowden Glucose [Mass/Vol] 182 mg/dL Critically high 74-106 [facility] Comment on above: Performed By: #### L IPID, BMP #### [facility] [address] [address] [address] Omid Bowden Potassium [Moles/Vol] 3.1 mmol/L Critically low 3.5-5.1 [facility] Comment on above: Performed By: #### L IPID, BMP #### [facility] [address] [address] [address] Omid Bowden Sodium [Moles/Vol] 140 mmol/L Normal 136-145 [facility] Comment on above: Performed By: #### L IPID, BMP #### [facility] [address] [address] [address] Omid Bowden Urea nitrogen [Mass/Vol] 30.0 mg/dL Critically high 7.0-18.0 [facility] Comment on above: Performed By: #### L IPID, BMP #### [facility] [address] [address] [address] Omid Bowden Urea nitrogen/Creatinine [Mass ratio] 23.4 mg/mg Normal [facility] Comment on above: Performed By: #### L IPID, [facility] #### [facility] [address] [address] [address] Omid Bowden XR CHEST 2 Von [...] ALFONSO GEORGE Date: 2022-02-09 11:53 Normal The [facility] No Panel Informationon 12-13 [employer] POCT Glucoseon 12-13-2021 Glucose [Mass/Vol] 196 mg/dL High 74 - 100 mg/dL [facility] Interpretation and review of laboratory results Abnormal [facility] POTASSIUM (POC)on 12-13-2021 Potassium [Moles/Vol] 3.7 mmol/L 3.5 - 4.5 mmol/L [employer] TYPE AND SCREENon 12-10-2021 ABO/Rh Positive [facility] Arm Band Number BE [id number] [facility] Expiration Date 12/16/2021,2359 [employer] EKG 12 leadOrdered By: Dennis Garcia on 12-07-2021 Atrial Rate 66 BPM [employer] Work Phone: P [place] 67 degrees [employer] Work Phone: P-R Interval 126 ms [employer] Work Phone: Q-T Interval 466 ms [employer] Work Phone: QRS Duration 150 ms [employer] Work Phone: QTc Calculation (Bazett) 488 ms [employer] Work Phone: R [place] 32 degrees [facility] Work Phone: T [place] 161 degrees [facility] Work Phone: Ventricular Rate 66 BPM [facility] Work Phone: [facility] Work Phone: EKG 12 leadon 12-07-2021 Sinus rhythm with Premature atrial complexes Left bundle branch block Abnormal ECG When compared with ECG of 12-MAY-2021 12:39, T wave inversion now evident in Inferior leads [facility] STV Dennis Sorensen MD - 12/07/2021 Sinus rhythm with Premature atrial complexes Left bundle branch block Abnormal ECG When compared with ECG of 12-MAY-2021 12:39, T wave inversion now evident in Inferior leads [facility] Work Phone: CBC auto differentialon 11-10 Absolute Eos # 0.13 [facility] th Absolute Immature Granulocyte 0.12 [facility] Absolute Lymph # 3.18 [facility] alth Absolute [place] # 1.22 High [facility] lt Basophils (Bld) [#/Vol] 0.05 10*3/uL [facility] Basophils/100 WBC (Bld) 0 % 0 - 2 % [facility] Eosinophils/100 WBC (Bld) 1 % 1 - 4 % [facility] Hematocrit (Bld) [Volume fraction] 38.4 % 36.3 - 47.1 % [facility] Hemoglobin.gastrointes tinal spec 1 Ql (Stl) 12.2 g/dL 11.9 - 15.1 g/dL [facility] Immature granulocytes/100 WBC (Bld) 1 % High 0 [facility] Interpretation and review of laboratory results Abnormal [facility] Lymphocytes/100 WBC (Bld) 25 % 24 - 43 % [facility] MCH (RBC) [Entitic mass] 29.9 pg 25.2 - 33.5 pg [facility] MCHC (RBC) [Mass/Vol] 31.8 g/dL 28.4 - 34.8 g/dL [facility] MCV (RBC) [Entitic vol] 94.1 fL 82.6 - 102.9 fL [facility] Monocytes/100 WBC (Bld) 10 % 3 - 12 % [facility] NRBC Automated 0.0 0.0 per 100 WBC [facility] Platelet distribution width (Bld) [Ratio] 14.5 % High 11.8 - 14.4 % [facility] Platelet mean volume (Bld) [Entitic vol] 10.1 fL 8.1 - 13.5 fL [facility] Platelets (Bld) [#/Vol] 266 10*3/uL [facility] RBC (Bld) [#/Vol] 4.08 10*6/uL 3.95 - 5.1 1 m/uL [facility] RBC (Bld) [#/Vol] ANISOCYTOSIS PRESENT [facility] Segmented neutrophils/100 WBC (Bld) 63 % 36 - 65 % [facility] Segs Absolute 7.88 [facility] h WBC (Bld) [#/Vol] 12.6 10*3/uL High [facility] Comprehensive Metabolic Pane l w/ Reflex to MGon 12-06-2021 Albumin [Mass/Vol] 3.7 g/dL 3.5 - 5.2 g/dL [facility] Albumin/Globulin [Mass ratio] 1.1 {ratio} [facility] ALP (Bld) [Catalytic activity/Vol] 93 U/L 35 - 104 U/L [facility] ALT [Catalytic activity/Vol] 12 U/L 5 - 33 U/L [facility] Anion gap [Moles/Vol] 14 mmol/L 9 - 17 mmol/L [facility] AST [Catalytic activity/Vol] 12 U/L <32 [facility] Bilirubin [Mass/Vol] 0.25 mg/dL Low 0.3 - 1 .2 mg/dL [facility] Calcium [Mass/Vol] 9.1 mg/dL 8.6 - 10. 4 mg/dL [facility] Chloride [Moles/Vol] 95 mmol/L Low 98 - 10 7 mmol/L [facility] CO2 [Moles/Vol] 30 mmol/L 20 - 31 mmol/L [facility] Creatinine [Mass/Vol] 1.07 mg/dL High 0.50 - 0.90 mg/dL [facility] Free PSA/Total PSA [Mass fraction] 7.2 g/dL 6.4 - 8.3 g/dL [facility] GFR 60 mL/min Low >60 [facility] GFR Non- 49 mL/min Low >60 [facility] GFR/1.73 sq M.predicted MDRD (S/P/Bld) [Vol rate/Area] [facility] Comment on above: Average GFR for 70 o r more years old: 75 mL/min/1.73sq m Chronic Kidney Disease: <60 mL/min/1.73sq m Kidney failure: <15 mL/min/1.73sq m eGFR calculated using average adult body mass. Additional eGFR calculator available at: http://www.The [employer]/multiple_crcl_2012.htm Glucose [Mass/Vol] 188 mg/dL High 70 - 99 mg/dL [facility] Interpretation and review of laboratory results Abnormal [facility] Potassium [Moles/Vol] 3.3 mmol/L Low 3.7 - 5.3 mmol/L [facility] Sodium [Moles/Vol] 139 mmol/L 135 - 144 mmol/L [facility] Urea nitrogen (BldV) [Mass/Vol] 22 mg/dL 8 - 23 mg/dL [facility] Magnesiumon 12-06-2021 Magnesium [Mass/Vol] 1.6 mg/dL 1.6 - 2 .6 mg/dL [facility] No Panel Informationon 12-06 No acute process. [facility] RIS CONSOLIDATED EXAMINATION: TWO XRAY VIEWS [...] The osseous structures are without acute process. [facility] RIS CONSOL[facility] Kael Freeman MD - 12/06/2021 EXAMINATION: [...] without acute process. IMPRESSION: No acute process. [employer] Phone: Radiology Study observation (narrative) [employer] Phone: No Panel InformationOrdered By: Kael Freeman on 12-06-2021 [employer] Phone: Creatinine W/GFR Point of Ca reOrdered By: Kin Abarca on 06-15-2021 Creatinine [Mass/Vol] 0.89 mg/dL 0.51 - 1.19 mg/dL [employer] Phone: GFR Non- >60 >60 mL/min [employer] Phone: GFR/1.73 sq M.predicted MDRD (S/P/Bld) [Vol rate/Area] mL/min/{1.73_m2} >60 mL/min [employer] Phone: GFR/1.73 sq M.predicted MDRD (S/P/Bld) [Vol rate/Area] [employer] Phone: Comment on above: Average GFR for 70 o r more years old: 75 mL/min/1.73sq m Chronic Kidney Disease: <60 mL/min/1.73sq m Kidney failure: <15 mL/min/1.73sq m eGFR calculated using average adult body mass. Additional eGFR calculator available at: http://www.The [employer]/multiple_crcl_2012.htm No Panel InformationOrdered By: Kin Abarca on 06-15-2021 [employer] Phone: POC Glucose FingerstickOrder ed By: Kin Abarca on 06-15-2021 Glucose [Mass/Vol] 163 mg/dL High 65 - 105 mg/dL [employer] Phone: Interpretation and review of laboratory results Abnormal [employer] Phone: [employer] Phone: POCT GlucoseOrdered By: Kin Abarca on 06-15-2021 Glucose [Mass/Vol] 186 mg/dL High 74 - 100 mg/dL [employer] Phone: Interpretation and review of laboratory results Abnormal [employer] Phone: POTASSIUM (POC)Ordered By: Yuriy Abarca on 06-15-2021 Potassium [Moles/Vol] 4.5 mmol/L 3.5 - 4.5 mmol/L [employer] Phone: EKG 12 leadOrdered By: Antoni Burks on 05-13-2021 Atrial Rate 67 BPM [employer] Phone: P [place] 58 degrees [employer] Phone: P-R Interval 130 ms [employer] Phone: Q-T Interval 504 ms [employer] Phone: QRS Duration 144 ms [employer] Phone: QTc Calculation (Bazett) 532 ms [employer] Phone: R [place] 20 degrees [employer] Phone: T [place] 117 degrees [employer] Phone: Ventricular Rate 67 BPM [employer] Work Phone: Sinus rhythm with Premature atrial complexes Left bundle branch block Abnormal ECG No previous ECGs available [employer] Phone: Virgilio, Mhpn Incoming E kg Results From [email or web address] - 05/13/2021 1:30 PM EDT Sinus rhythm with Premature atrial complexes Left bundle branch block Abnormal ECG No previous ECGs available [employer] Phone: [employer] Phone: Basic Metabolic Panel w/ Ref alexis to MGOrdered By: Latonia Burks on 05-12-2021 Anion gap [Moles/Vol] 13 mmol/L 9 - 17 mmol/L [employer] Phone: Calcium [Mass/Vol] 9.4 mg/dL 8.6 - 10. 4 mg/dL [employer] Phone: Chloride [Moles/Vol] 102 mmol/L 98 - 10 7 mmol/L [employer] Phone: CO2 [Moles/Vol] 28 mmol/L 20 - 31 mmol/L [employer] Phone: Creatinine [Mass/Vol] 0.94 mg/dL High 0.50 - 0.90 mg/dL [employer] Phone: GFR >60 >60 mL/min [employer] Phone: GFR Non- 58 mL/min Low >60 [employer] Phone: GFR/1.73 sq M.predicted MDRD (S/P/Bld) [Vol rate/Area] [employer] Phone: Comment on above: Average GFR for 70 o r more years old: 75 mL/min/1.73sq m Chronic Kidney Disease: <60 mL/min/1.73sq m Kidney failure: <15 mL/min/1.73sq m eGFR calculated using average adult body mass. Additional eGFR calculator available at: http://www.The [employer]/multiple_crcl_2012.htm GFR/1.73 sq M.predicted MDRD (S/P/Bld) [Vol rate/Area] NOT REPORTED [employer] Phone: Glucose [Mass/Vol] 119 mg/dL High 70 - 99 mg/dL [employer] Phone: Interpretation and review of laboratory results Abnormal [employer] Phone: Potassium [Moles/Vol] 4.0 mmol/L 3.7 - 5.3 mmol/L [employer] Phone: Sodium [Moles/Vol] 143 mmol/L 135 - 144 mmol/L [employer] Phone: Urea nitrogen (BldV) [Mass/Vol] 18 mg/dL 8 - 23 mg/dL [employer] Work Phone: Urea nitrogen/Creatinine (Bld) [Mass ratio] NOT REPORTED [employer] Phone: [employer] Work Phone: CBC auto differentialOrdered By: Latonia Burks on 05-12-2021 Absolute Eos # 0.26 [employer] [facility] Work Phone: Absolute Immature Granulocyte 0.04 [employer] Work Phone: Absolute Lymph # 3.26 [employer] Work Phone: Absolute [place] # 0.84 [employer] [facility] Work Phone: Basophils (Bld) [#/Vol] 0.05 10*3/uL [employer] Work Phone: Basophils/100 WBC (Bld) 1 % 0 - 2 % [employer] Phone: Differential Type NOT REPORTED [employer] Phone: Eosinophils/100 WBC (Bld) 3 % 1 - 4 % [employer] Phone: Hematocrit (Bld) [Volume fraction] 36.9 % 36.3 - 47.1 % [employer] Phone: Hemoglobin.gastrointes tinal spec 1 Ql (Stl) 11.2 g/dL Low 11.9 - 15.1 g/dL [employer] Phone: Immature granulocytes/100 WBC (Bld) 0 % 0 [employer] Phone: Interpretation and review of laboratory results Abnormal [employer] Phone: Lymphocytes/100 WBC (Bld) 32 % 24 - 43 % [employer] Phone: MCH (RBC) [Entitic mass] 28.3 pg 25.2 - 33.5 pg [employer] Phone: MCHC (RBC) [Mass/Vol] 30.4 g/dL 28.4 - 34.8 g/dL [employer] Phone: MCV (RBC) [Entitic vol] 93.2 fL 82.6 - 102.9 fL [employer] Phone: Monocytes/100 WBC (Bld) 8 % 3 - 12 % [employer] Phone: NRBC Automated 0.0 0.0 per 100 WBC [employer] Phone: Platelet distribution width (Bld) [Ratio] 13.8 % 11.8 - 14.4 % [employer] Phone: Platelet Estimate NOT REPORTED [employer] Phone: Platelet mean volume (Bld) [Entitic vol] 9.5 fL 8.1 - 13.5 fL [employer] Phone: Platelets (Bld) [#/Vol] 310 10*3/uL [employer] Phone: RBC (Bld) [#/Vol] 3.96 10*6/uL 3.95 - 5.1 1 m/uL [employer] Phone: RBC (Bld) [#/Vol] NOT REPORTED [employer] Phone: Segmented neutrophils/100 WBC (Bld) 56 % 36 - 65 % [employer] Phone: Segs Absolute 5.70 [employer] Work Phone: WBC (Bld) [#/Vol] 10.2 10*3/uL [employer] Phone: WBC (Bld) [#/Vol] NOT REPORTED [employer] Phone: [employer] Work Phone: XR CHEST (2 VW)Ordered By: A david Kimmie on 05-12-2021 Senescent changes compatible with the age of the patient. No evidence of acute cardiopulmonary process. [employer] Phone: EXAMINATION: TWO XRA Y VIEWS OF [...] spine and visualized portions of the shoulders. [employer] Phone: Virgilio, pn Incoming Radiant Results From [employer] - 05/12/2021 2:48 PM EDT EXAMINATION: TWO [...] patient. No evidence of acute cardiopulmonary process. [employer] Phone: [employer] Phone: Cardiovascular Lab Reporton 08-21-2020 Cardiovascular Lab Report [facility] [place] [facility] MR #: [id number] Department of Physician: Jose Maria Keyes M.D. Division of Service Date: 08/20/2020 Cardiology Birthdate: 1940 Adult Cardiovascular Room #: [facility] [address] [place], [place] [address] Cardiovascular Laboratory Report INDICATION: The patient is [...] signed informed consent. 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 The procedure was performed under conscious sedation. A transesophageal echocardiogram was performed by Dr. Marisol Khoury at baseline. Please refer to his dictation for details. The appendage measured a maximum of 16 mm in terms of ostial width. Using ultrasound guidance and micropuncture technique, access was obtained in the right common femoral vein and a 6-Montserratian x 11 cm sheath was placed preclosure where the 6-Montserratian ProGlide device was performed followed by advancement [...] was exchanged over that wire to the 14-Montserratian Watchman access sheath, which was advanced to the left atrial cavity with no issues. The 6-Montserratian angled pigtail catheter was advanced over the [...] Trans: (more content not included)... Normal The [facility] TYPE AND CROSSMATCHon 2019 ABO INTERPRETATION A Normal [facility] Comment on above: Performed By: #### [id number] #### [facility] [address] [place] [address], [facility] RH INTERPRETATION Positive Normal [facility] Comment on above: Performed By: #### 6 [id number] #### [facility] [address] [place] [address], [facility] Vital Signs Date Time Vital Sign Value Performing Clinician Facility 06-20-2024 10:14040 Body height 152.4 cm Peyman Hensley DPM Work Phone: [facility] 06-20-2024 10:14040 Body mass index (BMI) [Ratio] 28.32 kg/m2 Peyman Hensley DPM Work Phone: [facility] 06-20-2024 10:14040 Body weight 65.77 kg Peyman Hensley DPM Work Phone: [facility] 06-20-2024 10:140400 Respiratory rate 18 /min Peyman Hensley DPM Work Phone: [facility] 05-01-2024 10:18-0400 Body height 149.86 cm MD Mateus Perry Work Phone: [facility] 05-01-2024 10:18-0400 Body mass index (BMI) [Ratio] 30.2 kg/m2 MD Mateus Perry Work Phone: [facility] 05-01-2024 10:18-0400 Body temperature 97.8 [degF] MD Mateus Perry Work Phone: [facility] 05-01-2024 10:18-0400 Body weight 68.03 kg MD Mateus Perry Work Phone: [facility] 05-01-2024 10:18-0400 Diastolic blood pressure 72 mm[Hg] MD Mateus Perry Work Phone: [facility] 05-01-2024 10:18-0400 Heart rate 80 /min MD Mateus Perry Work Phone: [facility] 05-01-2024 10:18-0400 Respiratory rate 16 /min MD Mateus Perry Work Phone: [facility] 05-01-2024 10:18-0400 SaO2% (BldA) [Mass fraction] 98 % MD Mateus Perry Work Phone: [facility] 05-01-2024 10:18-0400 Systolic blood pressure 118 mm[Hg] MD Mateus Perry Work Phone: [facility] 04-24-2024 11:13-0400 Body height 149.86 cm MD Mateus Perry Work Phone: [facility] 04-24-2024 11:13-0400 Body mass index (BMI) [Ratio] 36.3 kg/m2 MD Mateus Perry Work Phone: [facility] 04-24-2024 11:13-0400 Body weight 81.64 kg MD Mateus Perry Work Phone: [facility] 04-24-2024 11:06-0400 Body temperature 98.8 [degF] MD Mateus Perry Work Phone: [facility] 04-24-2024 11:06-0400 Diastolic blood pressure 75 mm[Hg] MD Mateus Perry Work Phone: [facility] 04-24-2024 11:06-0400 Heart rate 97 /min MD Mateus Perry Work Phone: [facility] 04-24-2024 11:06-0400 Respiratory rate 20 /min MD Mateus Perry Work Phone: [facility] 04-24-2024 11:06-0400 Systolic blood pressure 118 mm[Hg] MD Mateus Perry Work Phone: [facility] 04-10-2024 10:30-0400 Body height 149.86 cm MD Mateus Perry Work Phone: [facility] 04-10-2024 10:30-0400 Body mass index (BMI) [Ratio] 36.3 kg/m2 MD Mateus Perry Work Phone: [facility] 04-10-2024 10:30-0400 Body weight 81.64 kg MD Mateus Perry Work Phone: [facility] 03-26-2024 09:51-0400 Body height 149.86 cm MD Mateus Perry Work Phone: [facility] 03-26-2024 09:51-0400 Body mass index (BMI) [Ratio] 36.3 kg/m2 MD Mateus Perry Work Phone: [facility] 03-26-2024 09:51-0400 Body weight 81.64 kg MD Mateus Perry Work Phone: [facility] 03-26-2024 09:36-0400 Body temperature 97.3 [degF] MD Mateus Perry Work Phone: [facility] 03-26-2024 09:36-0400 Diastolic blood pressure 61 mm[Hg] MD Mateus Perry Work Phone: [facility] 03-26-2024 09:36-0400 Heart rate 86 /min MD Mateus Perry Work Phone: [facility] 03-26-2024 09:36-0400 Respiratory rate 18 /min MD Mateus Perry Work Phone: [facility] 03-26-2024 09:36-0400 Systolic blood pressure 128 mm[Hg] MD Mateus Perry Work Phone: [facility] 06-20-2023 15:29-0400 Body height 154.9 cm Winnie Guzmán PA-C Work Phone: [facility] 06-20-2023 15:29-0400 Body temperature 97.39 [degF] Winnie Guzmán PA-C Work Phone: [facility] 06-20-2023 15:29-0400 Body weight 84.64 kg Winnie Ramirez PA-C Work Phone: [facility] 06-20-2023 15:29-0400 Diastolic blood pressure 55 mm[Hg] Winnie Ramirez PA-C Work Phone: [facility] 06-20-2023 15:29-0400 Heart rate 72 /min Winnie Ramirez PA-C Work Phone: [facility] 06-20-2023 15:29-0400 Respiratory rate 16 /min Winnie Ramirez PA-C Work Phone: [facility] 06-20-2023 15:29-0400 SaO2% (BldA) [Mass fraction] 96 % Winnie Ramirez PA-C Work Phone: [facility] 06-20-2023 15:29-0400 Systolic blood pressure 138 mm[Hg] Winnie Ramirez PA-C Work Phone: [facility] 06-01-2023 08:45-0400 Body height 154.94 cm Christiano Gonzales Other [employer] Other 06-01-2023 08:45-0400 Body mass index (BMI) [Ratio] 34.57 kg/m2 Christiano Gonzales Other [employer] Other 06-01-2023 08:45-0400 Body temperature 97.8 [degF] Christiano Gonzales Other [employer] Other 06-01-2023 08:45-0400 Body weight 83.01 kg Christiano Gonzales Other [employer] Other 06-01-2023 08:45-0400 Diastolic blood pressure 72 mm[Hg] Christiano Gonzales Other [employer] Other 06-01-2023 08:45-0400 SaO2% (BldA) [Mass fraction] 93 % Christiano Marrerogarrick Other [employer] Other 06-01-2023 08:45-0400 Systolic blood pressure 130 mm[Hg] Christiano Marrerogarrick Other [employer] Other 03-09-2023 08:45-0400 Body height 154.94 cm Millie Storm Other [employer] Other 03-09-2023 08:45-0400 Body mass index (BMI) [Ratio] 34.57 kg/m2 Millie Faganvane Other [employer] Other 03-09-2023 08:45-0400 Body temperature 96.8 [degF] Millie Faganvane Other [employer] Other 03-09-2023 08:45-0400 Body weight 83.01 kg Millie Storm Other [employer] Other 03-09-2023 08:45-0400 Diastolic blood pressure 56 mm[Hg] Millie Faganvane Other [employer] Other 03-09-2023 08:45-0400 SaO2% (BldA) [Mass fraction] 97 % Millie Faganvane Other [employer] Other 03-09-2023 08:45-0400 Systolic blood pressure 118 mm[Hg] Millie Faganvane Other [employer] Other 02-14-2023 10:19-0400 Body height 154.9 cm Walalce Stone MD Work Phone: [facility] 02-14-2023 10:19-0400 Body temperature 97.39 [degF] Wallace Stone MD Work Phone: [facility] 02-14-2023 10:19-0400 Body weight 84.46 kg Wallace Stone MD Work Phone: [facility] 02-14-2023 10:19-0400 Diastolic blood pressure 90 mm[Hg] Wallace Stone MD Work Phone: [facility] 02-14-2023 10:19-0400 Heart rate 102 /min Wallace Stone MD Work Phone: [facility] 02-14-2023 10:19-0400 Respiratory rate 16 /min Wallace Stone MD Work Phone: [facility] 02-14-2023 10:19-0400 SaO2% (BldA) [Mass fraction] 95 % Wallace Stone MD Work Phone: [facility] 02-14-2023 10:19-0400 Systolic blood pressure 151 mm[Hg] Wallace Stone MD Work Phone: [facility] 12-07-2022 14:00-0400 Body height 154.94 cm Millie Storm Other [employer] Other 12-07-2022 14:00-0400 Body mass index (BMI) [Ratio] 35.71 kg/m2 Millie Storm Other [employer] Other 12-07-2022 14:00-0400 Body temperature 97.6 [degF] Millie Storm Other [employer] Other 12-07-2022 14:00-0400 Body weight 85.73 kg Millie Storm Other [employer] Other 12-07-2022 14:00-0400 Diastolic blood pressure 68 mm[Hg] Millie Storm Other [employer] Other 12-07-2022 14:00-0400 SaO2% (BldA) [Mass fraction] 93 % Millie Storm Other [employer] Other 12-07-2022 14:00-0400 Systolic blood pressure 116 mm[Hg] Millie Storm Other [employer] Other 11-29-2022 11:53-0400 Diastolic blood pressure 54 mm[Hg] MD Mateus Perry Work Phone: [facility] 11-29-2022 11:53-0400 Heart rate 67 /min MD Mateus Perry Work Phone: [facility] 11-29-2022 11:53-0400 Respiratory rate 16 /min MD Mateus Perry Work Phone: [facility] 11-29-2022 11:53-0400 SaO2% (BldA) [Mass fraction] 94 % MD Mateus Perry Work Phone: [facility] 11-29-2022 11:53-0400 Systolic blood pressure 141 mm[Hg] MD Mateus Perry Work Phone: [facility] 11-29-2022 09:13-0400 Body height 154.94 cm MD Mateus Perry Work Phone: [facility] 11-29-2022 09:13-0400 Body weight 81.64 kg MD Mateus Perry Work Phone: [facility] 11-23-2022 11:00-0400 Body height 154.94 cm Christiano Gonzales Other [employer] Other 11-23-2022 11:00-0400 Body temperature 97.8 [degF] Christiano Gonzales Other [employer] Other 11-23-2022 11:00-0400 Diastolic blood pressure 62 mm[Hg] Christiano Gonzales Other [employer] Other 11-23-2022 11:00-0400 SaO2% (BldA) [Mass fraction] 96 % Christiano Gonzales Other [employer] Other 11-23-2022 11:00-0400 Systolic blood pressure 110 mm[Hg] Christiano Gonzales Other [employer] Other 11-09-2022 13:44-0500 Body height 154.9 cm Wallace Stone MD Work Phone: [facility] 11-09-2022 13:44-0500 Body temperature 97.11 [degF] Wallace Stone MD Work Phone: [facility] 11-09-2022 13:44-0500 Body weight 84.73 kg Wallace Stone MD Work Phone: [facility] 11-09-2022 13:44-0500 Diastolic blood pressure 72 mm[Hg] Wallace Stone MD Work Phone: [facility] 11-09-2022 13:44-0500 Heart rate 66 /min Wallace Stone MD Work Phone: [facility] 11-09-2022 13:44-0500 Respiratory rate 18 /min Wallace Stone MD Work Phone: [facility] 11-09-2022 13:44-0500 SaO2% (BldA) [Mass fraction] 100 % Wallace Stone MD Work Phone: [facility] 11-09-2022 13:44-0500 Systolic blood pressure 142 mm[Hg] Wallace Stone MD Work Phone: [facility] 09-22-2022 11:24-0500 Body height 154.9 cm Wallace Stone MD Work Phone: [facility] 09-22-2022 11:24-0500 Body temperature 97.81 [degF] Wallace Stone MD Work Phone: [facility] 09-22-2022 11:24-0500 Body weight 84.82 kg Wallace Stone MD Work Phone: [facility] 09-22-2022 11:24-0500 Diastolic blood pressure 64 mm[Hg] Wallace Stone MD Work Phone: [facility] 09-22-2022 11:24-0500 Heart rate 70 /min Wallace Stone MD Work Phone: [facility] 09-22-2022 11:24-0500 Respiratory rate 16 /min Wallace Stone MD Work Phone: [facility] 09-22-2022 11:24-0500 SaO2% (BldA) [Mass fraction] 94 % Wallace Stone MD Work Phone: [facility] 09-22-2022 11:24-0500 Systolic blood pressure 137 mm[Hg] Wallace Stone MD Work Phone: [facility] 09-09-2022 15:06-0500 Blood Pressure Location Iliana GAGNON [facility] [place] 09-09-2022 15:06-0500 Diastolic blood pressure 68 mm[Hg] Iliana GAGNON [facility] [place] 09-09-2022 15:06-0500 Heart rate 68 /min Iliana GAGNON [facility] [place] 09-09-2022 15:06-0500 Respiratory rate 16 /min Iliana GAGNON [facility] [place] 09-09-2022 15:06-0500 Systolic blood pressure 130 mm[Hg] Iliana GAGNON [facility] [place] 06-28-2022 12:00-0400 SaO2% (BldA) [Mass fraction] 95 % Emma Plunkett MD Work Phone: [facility] 06-28-2022 11:50-0400 Body temperature 97.3 [degF] Emma Plunkett MD Work Phone: [facility] 06-28-2022 11:50-0400 Diastolic blood pressure 50 mm[Hg] Emma Plunkett MD Work Phone: [facility] 06-28-2022 11:50-0400 Heart rate 69 /min Emma Plunkett MD Work Phone: [facility] 06-28-2022 11:50-0400 Respiratory rate 16 /min Emma Plunkett MD Work Phone: [facility] 06-28-2022 11:50-0400 Systolic blood pressure 115 mm[Hg] Emma Plunkett MD Work Phone: [facility] 06-28-2022 07:36-0400 Body height 154.9 cm Emma Plunkett MD Work Phone: [facility] 06-28-2022 07:36-0400 Body mass index (BMI) [Ratio] 34.58 kg/m2 Emma Plunkett MD Work Phone: [facility] 06-28-2022 07:36-0400 Body weight 83.01 kg Emma Plunkett MD Work Phone: [facility] 12-13-2021 15:45-0400 Body temperature 97 [degF] Emma Plunkett MD Work Phone: [facility] 12-13-2021 15:45-0400 Diastolic blood pressure 96 mm[Hg] Emma Plunkett MD Work Phone: [facility] 12-13-2021 15:45-0400 Heart rate 65 /min Emma Plunkett MD Work Phone: [facility] 12-13-2021 15:45-0400 Respiratory rate 14 /min Emma Plunkett MD Work Phone: [facility] 12-13-2021 15:45-0400 SaO2% (BldA) [Mass fraction] 94 % Emma Plunkett MD Work Phone: [facility] 12-13-2021 15:45-0400 Systolic blood pressure 113 mm[Hg] Emma Plunkett MD Work Phone: [facility] 12-13-2021 09:46-0400 Body height 154.9 cm Emma Plunkett MD Work Phone: [facility] 12-13-2021 09:46-0400 Body mass index (BMI) [Ratio] 36.09 kg/m2 Emma Plunkett MD Work Phone: [facility] 12-13-2021 09:46-0400 Body weight 86.64 kg Emma Plunkett MD Work Phone: [facility] 12-06-2021 14:46-0400 Body height 154.9 cm [facility] 2 [facility] 12-06-2021 14:46-0400 Body mass index (BMI) [Ratio] 36.09 kg/m2 [facility] 2 [facility] 12-06-2021 14:46-0400 Body temperature 96.4 [degF] [facility] 2 [facility] 12-06-2021 14:46-0400 Body weight 86.64 kg [facility] 2 [facility] 12-06-2021 14:46-0400 Diastolic blood pressure 67 mm[Hg] [facility] 2 [facility] 12-06-2021 14:46-0400 Heart rate 62 /min [facility] 2 [facility] 12-06-2021 14:46-0400 Respiratory rate 20 /min [facility] 2 [facility] 12-06-2021 14:46-0400 SaO2% (BldA) [Mass fraction] 97 % [facility] 2 [facility] 12-06-2021 14:46-0400 Systolic blood pressure 153 mm[Hg] [facility] 2 [facility] 06-15-2021 10:14-0400 Body temperature 97.81 [degF] Kin Abarca MD Work Phone: [employer] Work Phone: 06-15-2021 10:14-0400 Diastolic blood pressure 58 mm[Hg] Kin Abarca MD Work Phone: [employer] Work Phone: 06-15-2021 10:14-0400 Heart rate 61 /min Kin Abarca MD Work Phone: [employer] Work Phone: 06-15-2021 10:14-0400 Respiratory rate 14 /min Kin Abarca MD Work Phone: [employer] Work Phone: 06-15-2021 10:14-0400 SaO2% (BldA) [Mass fraction] 96 % Kin Abarca MD Work Phone: [employer] Work Phone: 06-15-2021 10:14-0400 Systolic blood pressure 113 mm[Hg] Kin Abarca MD Work Phone: [employer] Work Phone: 06-15-2021 08:24-0400 Body height 154.9 cm Kin Abarca MD Work Phone: [employer] Work Phone: 06-15-2021 08:24-0400 Body mass index (BMI) [Ratio] 34.96 kg/m2 Kin Abarca MD Work Phone: [employer] Phone: 06-15-2021 08:24-0400 Body weight 83.92 kg Kin Abarca MD Work Phone: [employer] Phone: 05-12-2021 12:53-0400 Body height 154.9 cm Stvz 1 [employer] Phone: 05-12-2021 12:53-0400 Body mass index (BMI) [Ratio] 35.52 kg/m2 [facility] 1 [employer] Phone: 05-12-2021 12:53-0400 Body temperature 96.8 [degF] [facility] 1 [employer] Phone: 05-12-2021 12:53-0400 Body weight 85.28 kg [facility]z 1 [employer] Phone: 05-12-2021 12:53-0400 Diastolic blood pressure 66 mm[Hg] [facility] 1 [employer] Phone: 05-12-2021 12:53-0400 Heart rate 57 /min [facility] 1 [employer] Phone: 05-12-2021 12:53-0400 Respiratory rate 18 /min [facility] 1 [employer] Phone: 05-12-2021 12:53-0400 SaO2% (BldA) [Mass fraction] 96 % [facility] 1 [employer] Phone: 05-12-2021 12:53-0400 Systolic blood pressure 150 mm[Hg] [facility] 1 [employer] Phone: Encounters Encounter Date Encounter Type Care Provider Facility Start: 06-20-2024 End: 06-20-2024 Jorge Hensley DPM Work Phone: [facility] Start: 06-20-2024 End: 06-20-2024 Jorge Nair Brown DPM Work Phone: [facility] Start: 06-20-2024 End: 06-20-2024 ambulatory PEYMAN HENSLEY Not Available Start: 06-20-2024 End: 06-20-2024 Office outpatient new 30 minutes Peyman Hensley DPM Work Phone: [facility] Comment on above: Hav (hallux abducto valgus), left (Primary Dx); Venous insufficiency; Acquired deformity of left toe; 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); Pain due to onychomycosis of toenails of both feet Start: 06-12-2024 End: 06-12-2024 ambulatory [facility] Start: 05-27-2024 End: 05-27-2024 ambulatory [facility]ERY[facility] Start: 05-01-2024 End: 05-01-2024 ambulatory MD Mateus Perry Work Phone: [facility] Work Phone: Start: 05-01-2024 End: 05-01-2024 Patient encounter procedure MD Mateus Perry Work Phone: [facility] Work Phone: Start: 04-24-2024 End: 04-24-2024 ambulatory MD Mateus Perry Work Phone: [facility] Work Phone: Start: 04-24-2024 End: 04-24-2024 Discharged Recurring MD Mateus Perry Work Phone: [facility] Work Phone: Start: 04-09-2024 End: 04-09-2024 Patient encounter procedure MD Mateus Perry Work Phone: [facility]-Ultrasound Main [place] Work Phone: Start: 04-09-2024 End: 04-09-2024 ambulatory MD Mateus Perry Work Phone: [facility] Work Phone: Start: 03-26-2024 Registered Recurring MD Yvonne Perry Work Phone: [facility]Wound [facility] Work Phone: Start: 06-20-2023 End: 06-20-2023 ambulatory WINNIE Hoa RAMIREZ Facility:[facility] Start: 06-20-2023 End: 06-20-2023 ambulatory Winnie Camara Ramirez PA-C Work Phone: Hematology/Oncology Comment on above: 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, estrogen receptor positive (HCC) (Primary Dx); Stage 3a chronic kidney disease (HCC) Start: 06-20-2023 End: 06-20-2023 Patient encounter procedure Winnie Hoa Ramirez PA-C Work Phone: [facility] Start: 06-01-2023 End: 06-01-2023 ambulatory Christiano Gonzales Other [employer] Other Start: 06-01-2023 Office outpatient vi sit 15 minutes Christiano Gonzales [facility] Start: 04-06-2023 End: 04-07-2023 ambulatory MATEUS HECTORHui [facility] Start: 03-09-2023 End: 03-09-2023 ambulatory Millie Storm Other [employer] Other Start: 03-09-2023 Patient encounter procedure Millie Storm [facility] Start: 03-06-2023 End: 03-06-2023 ambulatory EMMA GARZA V [facility] Start: 02-14-2023 End: 02-14-2023 ambulatory WALLACE STONE Facility:[facility] Start: 02-14-2023 End: 02-14-2023 ambulatory Wallace Stone [...] 12-08-2022 End: 12-08-2022 ambulatory Millie Storm Other [employer] Other Start: 12-08-2022 Telephone encounter Millie Dc [facility] Start: 12-07-2022 End: 12-07-2022 ambulatory Millie Emeterio Other [employer] Other Start: 12-07-2022 Patient encounter procedure Millie Storm [facility] Vascular Surgery Start: 11-29-2022 End: 11-29-2022 Admission to same day surgery center MD Mateus Perry Work Phone: [facility]-Interventional Radiology Work Phone: Start: 11-29-2022 End: 11-29-2022 ambulatory MD Mateus Perry Work Phone: [facility] Work Phone: Start: 11-24-2022 End: 11-25-2022 ambulatory LATONIA DENITAZAKIYA [facility] Start: 11-24-2022 End: 11-24-2022 Subsequent hospital visit by physician Mateus Perry MD Work Phone: [facility] Start: 11-23-2022 End: 11-23-2022 ambulatory Christiano Gonzales Other [employer] Other Start: 11-23-2022 Office outpatient ne w 60 minutes Christiano Gonzales [facility] Vascular Surgery Start: 11-22-2022 End: 11-23-2022 ambulatory Iliana GAGNON Facility: [place] Start: 11-16-2022 End: 11-16-[address] MATEUS PERRY . 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, estrogen receptor positive (HCC) (Primary Dx); Claudication in peripheral vascular disease (HCC) Start: 11-09-2022 End: 11-09-2022 Patient encounter procedure Wallace Stone MD Work Phone: [place] Start: 11-09-2022 Telephone encounter Wallace carolina MD [facility] Comment on above: Referral Information (Vascular Consult) Start: 11-08-2022 End: 11-09-2022 ambulatory Iliana GAGNON Facility: [facility] Start: 11-08-2022 End: 11-08-2022 Patient encounter procedure Iliana GAGNON General Surgery Nill/Said [place] Start: 11-04-2022 End: 11-05-2022 ambulatory Iliana GAGNON Facility: [facility] Start: 11-04-2022 End: 11-04-2022 Patient encounter procedure Iliana GAGNON General Surgery Nill[facility] Start: 11-02-2022 End: 11-03-[address] MATEUS PERRY . Facility:[facility] Start: 10-25-2022 End: 10-26-2022 ambulatory Iliana GAGNON Facility: [facility] Start: 10-25-2022 End: 10-25-2022 Patient encounter procedure Iliana GAGNON General Surgery Nill/Said [place] Start: 10-19-2022 End: 02-09-[address] ILIANA GAGNON . Facility:[facility] Start: 10-15-[address] ILIANA GAGNON . Facil ity:[facility] Start: 10-12-2022 Encounter for preprocedural laboratory examination DR ILIANA GAGNON . [facility] Start: 10-11-2022 End: 10-12-[address] ILIANA GAGNON . Facility:[facility] Start: 10-11-2022 End: 10-12-2022 Encounter for preprocedural laboratory examination DR ILIANA GAGNON . Facility:[facility] Start: 09-30-2022 End: 10-01-[address] MATEUS PERRY . Facility:[facility] Start: 09-22-2022 Telephone encounter Lars Wilkerson RN Work Phone: Hematology/Oncology Comment on above: Care Coordination (S urgery update) Start: 09-22-2022 End: 09-22-2022 ambulatory WALLACE STONE Facility:[facility] Start: 09-22-2022 End: 09-22-2022 ambulatory Wallace Stone MD Work Phone: Hematology/Oncology Comment on above: 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, estrogen receptor positive (HCC) (Primary Dx) Start: 09-22-2022 End: 09-22-2022 Patient encounter procedure Wallace Stone MD Work Phone: [place] Comment on above: Malignant neoplasm o f upper-outer quadrant of right breast in female, estrogen receptor positive (HCC) (Primary Dx) Start: 09-21-2022 End: 09-21-[address] MATEUS PERRY . Facility: Start: 09-19-2022 Chart abstracting Wallace messer MD Work Phone: Hematology/Oncology Start: 09-16-2022 End: 09-17-[address] DOCTOR SPEAR Facility: Start: 09-09-2022 End: 09-10-2022 ambulatory Iliana GAGNON Facility:[facility] Start: 09-09-2022 End: 09-09-2022 Patient encounter procedure Iliana [facility]AGNON [facility] Start: 09-05-[address] MATEUS PERRY . Facili ty:[facility] Start: 08-23-2022 End: 08-23-[address] MATEUS PERRY . Facility:[facility] Start: 08-19-2022 ambulatory Iliana GAGNON Facility :[facility] Start: 08-19-2022 End: 08-19-[address] MATEUS [...] SONALI MCKINNEY Facility:[facility] Start: 05-04-2022 ambulatory SONALI HANK Facility :[facility] Start: 04-12-2022 End: 04-13-2022 ambulatory SONALI MCKINNEY Facility:[facility] Start: 03-17-2022 End: 03-17-[address] MATEUS PERRY . Facility:[facility] Start: 03-16-2022 End: 03-16-[address] MATEUS PERRY . Facility:[facility] Start: 03-15-2022 End: 03-16-2022 ambulatory SONALI HANK Facility:[facility] Start: 02-15-2022 End: 02-16-2022 ambulatory SONALI HANK Facility:[facility] Start: 02-09-2022 End: 02-10-2022 ambulatory [facility] Facility:[facility] Start: 12-13-2021 End: 12-13-2021 Subsequent hospital visit by physician Emma Garza MD Work Phone: [facility] Comment on above: Post-operative state (Primary Dx) Start: 12-06-2021 End: 12-08-2021 Subsequent hospital visit by physician [facility] Comment on above: Arrived Start: 12-06-2021 End: 12-10-2021 Patient encounter status Stvz 2 [facility] Pre-Admit Testing Start: 12-06-2021 End: 12-10-2021 Subsequent hospital visit by physician Stsandra Pat 2 [facility] Pre-Admit Testing Comment on above: Pre-op chest exam Start: 06-15-2021 End: 06-15-2021 Subsequent hospital visit by physician Kin Abarca MD Work Phone: [facility] Start: 05-12-2021 End: 05-14-2021 Subsequent hospital visit by physician [facility] Comment on above: Arrived Start: 05-12-2021 End: 05-16-2021 Patient encounter status Stvz 1 [facility] Pre-Admit Testing Start: 05-12-2021 End: 05-16-2021 Subsequent hospital visit by physician Stsandra Hendrix 1 [facility] Pre-Admit Testing Comment on above: [...] exam ches t 2 views Latonia Kimmie PA-[employer] Work Phone: Start: 05-12-2021 Ecg routine ecg w/le ast 12 lds i&r only Latonia Kimmie PA-[employer] Work Phone: Start: 08-20-2020 Antibody screen Comment on above: Performed By: #### [id number] #### [address] Start: 01-16-2017 History of placement of [...] Treatment Date Care Activity Detail Author Start: 08-29-2024 End: 08-29-2024 Patient encounter procedure 08/29/2024 10:00 AM EST Office Visit [facility] [address] [facility] [address] [place] [address] Peyman Hensley, DPHoa [address] [facility] [address] [place] [address] [facility] Start: 06-20-2024 Hemoglobin/Hematocrit Hemoglobin/Hem [facility] Start: 06-20-2024 Serum Creatinine Serum Creatinine [facility] Start: 05-12-2024 Influenza vaccination Influenza Vacc ine (#1) [facility] Start: 02-15-2024 HEMOGLOBIN/HEMATOCRIT HEMOGLOBIN/HEM [facility] Start: 02-15-2024 SERUM CREATININE SERUM CREATININE [facility] Start: 06-16-2023 End: 08-16-2023 CBC W Auto Differential panel - Blood CBC + DIFF Lab Routine 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, estrogen receptor positive (HCC) Expected: 06/16/2023 (Approximate), Expires: 08/16/2023 [facility] Work Phone: Comment on above: Expected: 06/16/2023 (Approximate), Expires: 08/16/2023 Start: 06-16-2023 End: 08-16-2023 Comprehensive metabolic 2000 panel - Serum or Plasma COMP METABOLIC PANEL Lab Routine 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, estrogen receptor positive (HCC) Expected: 06/16/2023 (Approximate), Expires: 08/16/2023 [facility] Work Phone: Comment on above: Expected: 06/16/2023 (Approximate), Expires: 08/16/2023 Start: 05-12-2023 Covid-19 Vaccine ( season) Covid-19 Vaccine () [facility] Start: 05-12-2023 Influenza vaccination [facility] Start: 04-12-2023 End: 04-12-2023 Patient encounter procedure 04/12/2023 Office Visit Gynecologic Oncology Latonia Brush PA-C [address] [place], [place] [id number] [facility] Start: 02-09-2023 End: 04-11-2023 CBC W Auto Differential panel - Blood CBC + DIFF Lab Routine 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, estrogen receptor positive (HCC) Expected: 02/09/2023 (Approximate), Expires: 04/11/2023 [facility] Work Phone: Comment on above: Expected: 02/09/2023 (Approximate), Expires: 04/11/2023 Start: 02-09-2023 End: 04-11-2023 Comprehensive metabolic 2000 panel - Serum or Plasma COMP METABOLIC PANEL Lab Routine 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, estrogen receptor positive (HCC) Expected: 02/09/2023 (Approximate), Expires: 04/11/2023 [facility] Work Phone: Comment on above: Expected: 02/09/2023 (Approximate), Expires: 04/11/2023 Start: 12-13-2022 Potassium monitoring Potassium monit [facility] Start: 12-06-2022 Creatinine measurement Creatinine mo [facility] Start: 12-06-2022 Potassium monitoring Potassium monit [facility] Start: 11-29-2022 End: 11-29-2022 [facility] Start: 09-11-2022 ADVANCE DIRECTIVE DISCUSSION ADVANCE DIRECTIVE DISCUSSION [facility] Start: 09-11-2022 DEPRESSION ASSESSMENT DEPRESSION ASS ESSMENT [facility] Start: 07-27-2022 End: 07-27-2022 Patient encounter procedure 07/27/2022 Office Visit Gynecologic Oncology Emma Garza MD [address] [place] [address] [facility] Start: 06-28-2022 End: 06-28-2022 VULVA VAGINAL CERVIX LESION EXCISION LASER VULVA VAGINAL CERVIX LESION EXCISION LASER Vaginal dysplasia 06/28/2022 9:04 AM EDT [facility] Start: 06-15-2022 Creatinine measurement Creatinine mo [facility] Work Phone: Start: 06-15-2022 Potassium monitoring Potassium monit [facility] Work Phone: Start: 05-12-2022 Creatinine measurement Creatinine mo [facility] [employer] [facility] Phone: Start: 05-12-2022 Influenza vaccination INFLUENZA (#1) [facility] Start: 05-12-2022 Potassium monitoring Potassium monit [facility] Work Phone: Start: 04-11-2022 Influenza vaccination Flu vaccine (# 1) [facility] Start: 01-14-2022 End: 01-14-2022 Patient encounter procedure 01/14/2022 Office Visit Gynecologic Oncology Latonia Burks PA-C [address] [address] [address] [place] [address] [facility] Start: 12-13-2021 End: 12-13-2021 VAGINECTOMY [facility] Start: 12-13-2021 End: 12-13-2021 Admission to same day surgery center [facility] Comment on above: VAGINECTOMY, CYSTOSC OPY CYSTOSCOPY, VAGINECT PATY Start: 12-13-2021 Subsequent hospital visit by physician 12/13/2021 Hospital Encounter IP Unit Emma Garza MD [address] [place] [address] [facility] Start: 12-13-2021 End: 12-13-2021 Vaginectomy complete removal vaginal wall VAGINECTOMY VAGINAL DYSPLASIA, RULE OUT CANCER 12/13/2021 10:20 AM EDT [facility] Start: 10-31-2021 Annual Wellness Visi t (AWV) Annual Wellness Visit (AWV) [facility] Start: 10-15-2021 COVID-19 VACCINE (4 - Booster for Moderna series) COVID-19 VACCINE (4 - Booster for Moderna series) [facility] Start: 07-01-2021 End: 07-01-2021 Patient encounter procedure 07/01/2021 Office Visit Gynecologic Oncology Kin Abarca MD [address] [facility] [address] [place] [address] [phone] [facility] Start: 05-12-2021 Influenza vaccination Flu vaccine (# 1) [facility] Work Phone: Start: 04-05-2021 COVID-19 Vaccine (3 - Booster for Moderna series) COVID-19 Vaccine (3 - Booster for Moderna series) [facility] Start: 10-29-2020 Hemoglobin A1c/Hemoglobin.total in Blood HBA1C [facility] Start: 01-19-2018 Pneumococcal Vaccine : 65+ (2 - PCV) Pneumococcal Vaccine: 65+ (2 - PCV) [facility] Start: 01-19-2018 Pneumococcal Vaccine : 65+ Years (2 of 2 - PCV) Pneumococcal Vaccine: 65+ Years (2 of 2 - PCV) [facility] Start: 01-19-2018 PNEUMOCOCCAL: 65+ (2 - PCV) PNEUMOCOCCAL: 65+ (2 - PCV) [facility] Start: 2007 BONE DENSITY BONE DENSITY [facility] Start: 2007 Bone Density Screening Bone Density Screening [facility] Start: 2007 Pneumococcal 65+ yea rs Vaccine (1 - PCV) Pneumococcal 65+ years Vaccine (1 - PCV) [facility] Start: 2007 Pneumococcal 65+ yea rs Vaccine (1 of 1 - PPSV23) Pneumococcal 65+ years Vaccine (1 of 1 - PPSV23) [facility] Start: 2002 Hepatitis B Vaccine (1 of 3 - Risk 3-dose series) Hepatitis B Vaccine (1 of 3 - Risk 3-dose series) [facility] Start: 1997 Screening for osteoporosis DEXA (modify frequency per FRAX score) [facility] Start: 1992 Shingles Vaccine (1 of 2) Shingles Vaccine (1 of 2) [facility] Start: 1992 SHINGRIX VACCINE (1 of 2) SHINGRIX VACCINE (1 of 2) [facility] Start: 1961 DTaP/Tdap/Td vaccine (1 - Tdap) DTaP/Tdap/Td vaccine (1 - Tdap) [facility] Start: 1961 Urine microalbumin profile [facility] Start: 1960 ANNUAL PCP TEAM TRACTOR 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 MECHANIC USAMA DISEASE VISIT ANNUAL PCP TEAM CHRONIC DISEASE VISIT [facility] Start: 1960 BP CONTROLLED (<130/80) BP CON TROLLED (<130/80) [facility] Start: 1960 Hepatitis B surface antibody level LDL CHOLESTEROL [facility] Start: 1960 [facility] Start: 1954 Depression Screen Depression Screen [facility] Start: 1952 3 comp foot exam completed DIABETIC FOOT EXAM [facility] Start: 1952 Hepatitis B screening URINE ALBUMIN:CREATININE RATIO [facility] Start: 1952 Hepatitis C antibody , confirmatory test DILATED RETINAL EXAM [facility] Start: 1952 Lipid panel [facility] Start: 1942 Hepatitis C screening Hepatitis C [facility] EKG 12 Lead EKG 12 Lead ECG STAT 06/28/2022 7:29 AM EDT [employer] Phone: End: 12-13-2021 INITIATE PACU OXYGEN THERAPY PROTOCOL Initiate PACU Oxygen Therapy Protocol Respiratory Care Routine Continuous until discontinued starting 12/13/2021 [employer] Phone: Comment on above: Continuous until dis continued starting 12/13/2021 End: 06-28-2022 INITIATE PACU OXYGEN THERAPY PROTOCOL Initiate PACU Oxygen Therapy Protocol Respiratory Care Routine Continuous until discontinued starting 06/28/2022 [employer] Phone: Comment on above: Continuous until dis continued starting 06/28/2022 End: 07-19-2024 MAGNO DIAGNOSTIC BILATERAL [facility] DI[facility]NOST[facility] BIL[facility]AL Radiology Routine 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, estrogen receptor positive (HCC) 1 Occurrences starting 06/20/2023 until 07/19/2024 [facility] Work Phone: Comment on above: 1 Occurrences starti ng 06/20/2023 until 07/19/2024 Patient referral [facility] Work Phone: Spirometry panel Incentive viktoriya metry Respiratory Care Routine Every 2hr while awake until discontinued starting 12/13/2021 [employer] Phone: Comment on above: Every 2hr while awak e until discontinued starting 12/13/2021 Surgical Pathology Surgical Path ology Lab Routine Release Upon Ordering for 1 Occurrences starting 06/15/2021 [employer] Phone: Comment on above: Release Upon Orderin g for 1 Occurrences starting 06/15/2021 Surgical Pathology Surgical Path ology Lab Routine Release Upon Ordering for 1 Occurrences starting 12/13/2021 [employer] Phone: Comment on above: Release Upon Orderin g for 1 Occurrences starting 12/13/2021 Surgical Pathology Surgical Path ology Lab Routine Vaginal dysplasia Release Upon Ordering for 1 Occurrences starting 06/28/2022 [employer] Phone: Comment on above: Release Upon Orderin g for 1 Occurrences starting 06/28/2022 End: 06-28-2022 SURGICAL PATHOLOGY REPORT SURGICAL PATHOLOGY REPORT Lab Routine Once for 1 Occurrences starting 06/28/2022 until 06/28/2022 [employer] Phone: Comment on above: Once for 1 Occurrenc es starting 06/28/2022 until 06/28/2022 End: 11-24-2022 SURGICAL PATHOLOGY REPORT SURGICAL PATHOLOGY REPORT Lab Routine Once for 1 Occurrences starting 11/24/2022 until 11/24/2022 [employer] Phone: Comment on above: Once for 1 Occurrenc es starting 11/24/2022 until 11/24/2022 [facility] Immunizations Immunization Date Immunization Notes Care Provider Fa [facility] 07-12-2022 influenza virus vacc ine, unspecified formulation Iliana CHELSI [facility] 08-20-2021 SARS-CoV-2 (COVID-19 ) mRNA-6193 vaccine Ilaina DORANNikolai [facility] 07-01-2021 influenza (HD-IIV4) vaccine, age 65+ yr, high dose, quadrivalent, PF (FLUZONE HIGH-DOSE) Wallace Stone MD Work Phone: [facility] 07-01-2021 influenza virus vacc ine, unspecified formulation Winnie Guzmán PA-C Work Phone: [facility] 11-06-2020 COVID-19, Moderna, P F, 100mcg/0.5mL Stv Xr [facility] 10-09-2020 COVID-19, Moderna, P F, 100mcg/0.5mL Stv Xr [facility] Work Phone: 06-10-2020 Seasonal trivalent influenza vaccine, adjuvanted, preservative free Wallace Stone MD Work Phone: [facility] 06-07-2017 influenza, high dose seasonal, preservative-free Wallace Stone MD Work Phone: [facility] 01-19-2017 pneumococcal polysaccharide vaccine, 23 valyvonne Stone MD Work Phone: [facility] 06-29-2015 influenza, high dose seasonal, preservative-free Wallace Stone MD Work Phone: [facility] 06-23-2014 influenza, high dose seasonal, preservative-free Wallace Stone MD Work Phone: [facility] 06-15-2010 pneumococcal polysaccharide vaccine, 23 valyvonne Stone MD Work Phone: [facility] 06-27-2007 influenza virus vacc ine, whole virus Wallace Stone MD Work Phone: [facility] Payers Date Payer Category Payer Self-pay [id number] 2007 Medicare [id number] 5 2007 Unknown [id number] [id number] 5 2007 Unknown [id number] [id number].31 5 1959 Medicare [id number] [id number]66199.31 5 1959 Self-pay [id number] 1959 Unknown [id number] 2.16.8 40.1.324155.19 1942 Unknown [id number] 2.16.84 0.1.524990.3.579.2.593 1942 Unknown [id number] 2.16.84 0.1.859957.3.579.2.593 1942 Unknown [id number] 2.16.84 0.1.705929.3.579.2.593 1942 Unknown [id number] 2.16.84 0.1.627742.3.579.2.593 1942 Unknown [id number] 2.16.84 0.1.521964.3.579.2.593 1942 Unknown [id number] 2.16.84 0.1.573229.3.579.2.593 1942 Unknown [id number] 2.16.84 0.1.131617.3.579.2.593 1942 Unknown [id number] 2.16.84 0.1.292041.3.579.2.593 1942 Unknown [id number] 2.16.84 0.1.899376.3.579.2.593 1942 Unknown [id number] 2.16.84 0.1.124361.3.579.2.593 1942 Unknown [id number] 2.16.84 0.1.876703.3.579.2.593 1942 Unknown [id number] 2.16.84 0.1.392182.3.579.2.593 1942 Unknown [id number] 2.16.84 0.1.174751.3.579.2.593 1942 Unknown [id number] 2.16.84 0.1.043127.3.579.2.593 1942 Unknown [id number] 2.16.84 0.1.745587.3.579.2.593 1942 Unknown [id number] 2.16.84 0.1.278514.3.579.2.593 1942 Unknown [id number] 2.16.84 0.1.507907.3.579.2.593 1942 Unknown [id number] 2.16.84 0.1.518685.3.579.2.593 1942 Unknown [id number] 2.16.84 0.1.971401.3.579.2.593 1942 Unknown [id number] 2.16.84 0.1.746446.3.579.2.593 1942 Unknown [id number] 2.16.84 0.1.149749.3.579.2.593 1942 Unknown [id number] 2.16.84 0.1.859666.3.579.2.593 1942 Unknown [id number] 2.16.84 0.1.059676.3.579.2.593 1942 Unknown [id number] 2.16.84 0.1.452170.3.579.2.593 1942 Unknown [id number] 2.16.84 0.1.789837.3.579.2.593 1942 Unknown [id number] 2.16.84 0.1.731081.3.579.2.593 1942 Unknown [id number] 2.16.84 0.1.074379.3.579.2.593 1942 Unknown [id number] 2.16.8 40.1.987739.3.579.2.727 1942 Unknown [id number] 2.16.8 40.1.873446.3.579.2.727 1942 Unknown [id number] 2.16.8 40.1.720941.3.579.2.727 1942 Unknown [id number] 2.16.8 40.1.133374.3.579.2.727 1942 Unknown [id number] 2.16.8 40.1.973019.3.579.2.727 1942 Unknown [id number] 2.16.8 40.1.207168.3.579.2.727 1942 Unknown [id number] 2.16.8 40.1.448009.3.579.2.727 1942 Unknown [id number] 2.16. 840.1.490989.3.579.2.175 1942 Unknown [id number] 2.16. 840.1.136836.3.579.2.175 1942 Unknown [id number] 2.16. 840.1.278373.3.579.2.175 1942 Unknown [id number] 2.16.84 0.1.165987.3.579.2.1259 Medicare Medicare Outpatient [id number] 4D [id number] Unknown [id number] 2.16.8 40.1.654415.3.579.2.531 Unknown [id number] 2.16.8 40.1.706582.3.579.2.531 Social History Date Type Detail Facility Start: 05-12-2021 End: 06-20-2024 Tobacco smoking status NHIS Former smoker [employer] Phone: Start: 09-11-1962 End: 06-28-2018 History of tobacco use Current smoker [facility] Start: 09-11-1962 End: 06-28-2018 History of tobacco use Cigarette Smoker [facility] Start: 05-12-2021 End: 06-20-2024 Tobacco use and exposure Never used [facility] Start: 05-12-2021 End: 11-24-2022 Alcohol intake Ex-drinker (finding) [employer] Phone: Start: 1940 Sex Assigned At Not on file [facility] [employer] Phone: Start: 11-26-2021 End: 06-24-2022 Exposure to SARS-CoV-2 (event) Not sure [facility] Start: 06-15-2021 End: 06-20-2024 Cigarettes smoked current (pack per day) - Reported [facility] History of tobacco use Passive smoker [facility] [employer] Phone: Tobacco smoking status Never [facility] Start: 02-14-2023 End: 06-20-2024 Sex Assigned At Female [facility] Start: 09-19-2022 End: 02-14-2023 Alcohol intake Current non-drinker of alcohol (finding) [facility] Start: 1940 Sex Assigned At Female [facility] Tobacco smoking stat [facility] Tobacco smoking consumption unknown [facility] Start: 06-20-2024 Alcoholic beverage intake Lifetime non-drinker (finding) [facility] Healthcare Medical Equipment Procedure Code Equipment Code Equipment [...] Facility 09-09-2022 Functional Status N/A General [facility] Clinical Notes 05-12-2021 to 06-20-2024 Peyman Hensley, ZHANE - 06/20/2024 9:40 AM EDT Note Date & Type Note Facility 06-20-2024 History of Present illness Narrative Patient: Harman Mcleod : 1940 PCP: Mateus Perry MD SUBJECTIVE This is a 83 y.o. female that presents today with a CC of elongated, thick nails. Pt states nails have been elongated and thick for many years and cause pain with ambulation in shoegear. Pt has tried previous treatment with minimal relief. Pt presents today for nail care and treatment. Patient is DM2 Patient also has history of venous stasis edema and does currently wear compression stockings She also states she has had a left anterior braun wound for the past 2 months after hitting object. Currently sees [facility] wound center every 3 weeks with application of Medihoney only and states no debridement to the area Also states that she has home health to care for wound as well as her needs daily. Allergies: No Known Allergies Past Medical History: History reviewed. No pertinent past medical history. Medications: Current Outpatient Medications: Eliquis 5 MG tablet, TAKE 1 TABLET BY MOUTH IN THE MORNING AND AT BEDTIME, Disp: , Rfl: ferrous sulfate 325 (65 Fe) MG tablet, Take 325 mg by mouth in the morning and 325 mg in the evening., Disp: , Rfl: Jardiance 10 MG, Take 10 mg by mouth in the morning., Disp: , Rfl: albuterol (2.5 MG/3ML) 0.083% nebulizer solution, USE 1 VIAL IN NEBULIZER 4 TIMES DAILY NEEDED, Disp: , Rfl: amLODIPine (Norvasc) 5 MG tablet, Take 1 tablet by mouth Daily, Disp: , Rfl: anastrozole (Arimidex) 1 MG chemo tablet, Take 1 mg by mouth Daily., Disp: , Rfl: febuxostat (Uloric) 40 MG tablet, Take 40 mg by mouth in the morning., Disp: , Rfl: hydrALAZINE (Apresoline) 100 MG tablet, Take 1 tablet by mouth in the morning and 1 tablet in the evening and 1 tablet before bedtime., Disp: , Rfl: isosorbide mononitrate ER (Imdur) 60 MG 24 hr tablet, Take 1 tablet by mouth Daily, Disp: , Rfl: levothyroxine (Synthroid, Levoxyl) 112 MCG tablet, Take 1 tablet by mouth Daily, Disp: , Rfl: liothyronine (Cytomel) 5 MCG tablet, Take 2 tablets by mouth Daily, Disp: , Rfl: metoprolol succinate XL (Toprol-XL) 200 MG 24 hr tablet, Take 1 tablet by mouth Daily, Disp: , Rfl: simvastatin (Zocor) 20 MG tablet, Take 1 tablet by mouth Daily, Disp: , Rfl: Social History: Social History Socioeconomic History Marital status: Spouse name: Not on file Number of children: Not on file Years of education: Not on file Highest education level: Not on file Occupational History Not on file Tobacco Use Smoking status: Former Types: Cigarettes Smokeless tobacco: Never Substance and Sexual Activity Alcohol use: Never Drug use: Never Sexual activity: Not on file Other Topics Concern Not on file Social History Narrative Not on file Social Determinants of Health Financial Resource Strain: Not on file Food Insecurity: Not on file Transportation Needs: Not on file Physical Activity: Not on file Stress: Not on file Social Connections: Not on file Intimate Partner Violence: Unknown (11/02/2023) Re[facility] from [facility] [place] Safety & Environment Fear of Current or Ex-Partner: Not on file Emotionally Abused: Not on file Physically Abused: Not on file Sexually Abused: Not on file Physically or Sexually Abused: Not on file Housing Stability: Not on file ROS: General: denies fever, chills, fatigue, malaise Gastrointestinal: denies abdominal pain, ulcers, or changes in appetite or bowel habits Musculoskeletal: Positive history of arthritis, denies loss of strength, pain to hip, knees, back Cardiovascular: denies CP, palpitations, with positive history of coronary artery disease as well as atrial fibrillation and currently on Eliquis OBJECTIVE LE EXAM: DERM: Elongated thick yellow crumbly nails digits 1 through 10. Negative hair growth with thin shiny atrophic skin bilaterally. Notable rubor to the left dorsal medial eminence as well as left 2nd digital deformity at the PIPJ region Left anterior braun has a 1.5 cm x 1.0 cm x 0.2 cm subcutaneous thickness depth ulceration was +1 pitting edema to bilateral ankles Slight fibrous slough noted to the left anterior braun with notable serous drainage and negative erythema VASC: Negative DP and negative PT pedal pulses NEURO: 5.07 [place] Sybil monofilament test intact to digits and forefoot bilaterally 125Hz tuning fork diminished to 1st MPJ bilaterally ORTHO: Positive pain on palpation to nails 1 through 10 Positive pain palpation left anterior braun ASSESSMENT 1. Venous insufficiency 2. Hav (hallux abducto valgus), left 3. Acquired deformity of left toe 4. 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) 5. 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) 6. Pain due to onychomycosis of toenails of both feet PLAN Discussed proper foot care with patient today. Debride nails in length and thickness digits 1 through 10 Patient educated today on proper diabetic foot care including monitoring feet daily for any signs of infection openings in the skin or irregularities to both feet. Patient had a diabetic neurological exam today to both their feet and discussed proper shoe gear. Continue with compression stockings for venous stasis Did discuss areas to be concerned about including the left HAV deformity left 2nd hammertoe deformity discuss appropriate shoe gear and the watch for any signs of ulcerations or redness and contact Podiatry if any issues Sharp debridement with 15 blade of subcutaneous ulceration to left leg with active bleeding noted and removal and excision of fibrotic and necrotic tissue to wound and DSD applied . Patient currently has the [facility] wound center applying Medihoney every other day. Did discuss possibility if no improvement to contact Podiatry for advanced wound care treatments or if any signs of infection Peyman Hensley DPM documented in this encounter [facility] 06-12-2024 Note [place] [facility] Subjective Harman Mcleod is a 83 y.o. year old female patient being seen for follow up echo performed on 06/04/2024. Denies chest pain, SOB, and palpitations. Feels good but is tired today. BP at home was 107/71 today and yesterday 114/55. 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, NYHA class 2 (CMS/HCC) BMI 36.0-36.9,adult Brain stem vertigo Breast cancer of upper-outer quadrant of right female breast (CMS/HCC) Cervical disc disease Chronic anticoagulation Chronic diastolic heart failure (CMS/HCC) Chronic low back pain Chronic obstructive pulmonary disease (CMS/HCC) Diverticulosis Edema Invasive ductal carcinoma of right breast (CMS/HCC) Osteopenia Pseudoaneurysm of femoral artery (CMS/HCC) Pure hypercholesterolemia Rectal bleeding Stage 2 chronic kidney disease Altered mental status Edema of both lower legs Leg ulcer, left (CMS/HCC) Leg wound, right Open wound of left thigh Stage 3a chronic kidney disease (CMS/HCC) Uses walker Varicose veins of both legs with edema Family History Problem Relation Name Age of [...] ISR in July 2018] She has hypertension. AF [discovered to have atrial fibrillation on ECG [...] until we obtain the watchman FLX. She then decided to hold off on the procedure. She has leg swelling and uses compression stockings. She was found to have breast cancer and is being treated with anastrozole. Recently she has been in persistent atrial fibrillation. Follow-up echocardiography showed drop in ejection fraction down to 35%. She denies chest pain. She has shortness of breath on exertion NYHA class II-III. She has bilateral lower extremity edema. She is being treated with high-dose diuretic therapy. Recent kidney function shows worsening with elevated BUN and creatinine. Review of Systems Constitutional: Positive for malaise/fatigue. Cardiovascular: Positive for dyspnea on exertion and leg swelling. All other systems reviewed and are negative. Objective Visit Vitals BP 94/62 (BP Location: Left arm, Patient Position: Sitting) Pulse 72 Ht 1.549 m (5' 1 ) Wt 66.7 kg (147 lb) SpO2 92% BMI 27.78 kg/m??? Smoking Status Former BSA 1.69 m??? Physical Exam Constitutional: Appearance: She is well-developed. She is obese. She is not ill-appearing. HENT: Head: Normocephalic and atraumatic. Nose: Nose normal. Eyes: General: No scleral icterus. Pupils: Pupils are equal, round, and reactive to light. Neck: Thyroid: No thyromegaly. Vascular: No JVD. Cardiovascular: Rate and Rhythm: Normal rate. Rhythm irregularly irregular. Pulses: Radial pulses are 2+ on the [...] present. Mental Status: She is alert and orie (more content not included)... [facility] 05-27-2024 Note Remains on ASA No c/o angina or concerns [facility] 05-27-2024 Note As above [facility] 05-27-2024 Note [id number]= 6-7 at least with Age, Sex, CHF, CAD/Vascular disease, HTN, DM Currently per assessment she appears to be in rhythm heart rate well-controlled with metoprolol 200 mg daily and she remains on Eliquis anticoagulation without any bleeding tendencies or concerns. [facility] 05-27-2024 Note Lipid abnormalities are elevated therefore will increase zocor to 40 mg daily. Will repeat lipid level and liver function in 2-3 months [facility] 05-27-2024 Note Congestive heart ivanemily todd is stable without worsening symptoms [facility] II -currently patient is euvolemic without exacerbation. She has returned home from assisted facility and presents today with granddaughter who helps manage her medications. Continue GDMT-aspirin, Toprol, simvastatin, Aldactone, and Lasix for Diuretic therapy Monitor daily weights, I&O, fluid restriction 1.5-2L/day, renal function and electrolytes Discussed with patient importance of monitoring weight daily and to call office if she gains 2 pounds in 1 day or 3-5 pounds and she voiced understanding that this helps prevent rehospitalization for heart failure exacerbation [facility] 05-27-2024 Note Hypertension current ly is well-controlled at 106/67 Continue amlodipine, hydralazine, Imdur, Toprol and spironolactone Currently renal function normal, no acute concerns. [facility] 05-27-2024 Note Coronary artery dise ase is stable, no concerning symptoms or concerns today D/W pt and granddaughter that in light of CAD s/p stent and CHF she will be a cardiology pt for the rest of her life and will F/U in clinic a couple times a year and she voiced understanding. Continue GDMT- ASA, toprol, zocor, imdur and fish oil. continue risk factor modifications- heart healthy diet, regular exercise as tolerated and continue all medications. [facility] 05-27-2024 Note [facility] CARDIOLOGY PROGR ESS NOTE HPI: Harman Mcleod is a 83 y.o. female here for annual routine f/U HPI 83 year old female patient being seen for 6 motnh F/U Coronary Artery Disease, Atrial Fibrillation, systolic Heart Failure, and Hypertension Patient presents to clinic with her granddaughter who is assisting her with medical management and medications. Patient states she had 2 hospitalizations in the last year 1 was for UTI and fluid overload-of which she was discharged to assisted facility until this past December. She has returned home with assistance from her family and home health nursing just signed off this week. Overall states she is feeling well, weight and leg swelling have been well-controlled, she is able to ambulate with rolling walker denies shortness of breath, chest pain that limit her activities. States she is not sure why she is here for this visit but was told to make an appointment. Pt denies chest pain, palpatations, sob. Review of Systems All other systems reviewed and are negative Admit to [facility] 02/13/24 DC Summary DS: Summary Hospital Course Hospital Course: Patient was seen and evaluated a couple times in the outpatient setting for sacral pain. She presented to the emergency room found to have a fairly large abscess almost the size of a baseball in 1 dimension. She was admitted with failed outpatient treatment. She was placed on IV antibiotics, blood cultures were obtained which showed no growth throughout the hospitalization. The abscess was drained at the bedside. Then packed. She had increasing pain the following day. White blood cell count was better but did CT scan which showed resolution of the abscess. Patient was given fluids on admission due to tachycardia but then had episode of fluid overload. She was diuresed with IV Lasix but with minimal improvement. Change patient to IV Bumex with better improvement. Following day creatinine was significantly elevated with acute renal failure as outlined above. This has been slowly improving since that time. She was reinstated with her diuretics yesterday IV. Kidney function continues to improve BNP continues to improve. White blood cell count is stable. At this point she is medically stable for discharge to rehab. Encouraged her to work hard at rehab and she is an excellent rehabilitation candidate as she is highly motivated for returning to home. Medications see list. I will follow patient at rehab Status at Discharge Overall status at discharge: patient is not back to baseline Previous HPI HPI Harman is seen in follow up. [...] She has had a few falls recently. Visit Vitals BP 106/67 (BP Location: Left arm, Patient Position: Sitting) Pulse 80 Ht 1.549 m (5' 1 ) Wt 65.8 kg (145 lb) SpO2 96% BMI 27.40 kg/m??? Smoking Status Former BSA 1.68 m??? Allergies Allergen Reactions Ciprofloxacin Hives and Other Other reaction(s): Other: See Comments tendon issues tendon issues Cefdinir Other Oxycodone Rash Rash & GI upset Oxycodone-Acetaminophen Other GI upset & rash Medications: Current Outpatient Medications on File Prior to Visit Medication Sig Dispense Refill albuterol 2.5 mg /3 mL (0.083 %) nebulizer solution USE 1 VIAL IN NEBULIZER 4 TIMES DAILY NEEDED amLODIPine (Norvasc) 5 mg tablet Take 1 tablet (5 mg) by mouth once daily as directed. 90 tablet 3 anastrozole (Arimidex) 1 mg chemo tablet Take 1 mg by mouth in the morning Swallow whole with a drink of water. apixaban (Eliquis) 5 mg tablet TAKE 1 TABLET BY MOUTH IN THE MORNING AND AT BEDTIME 60 tablet 0 aspirin 81 mg EC tablet Take 81 mg by mouth. fish oil concentrate (Chittenango-3) 120-180 mg capsule Take 1,000 mg by mouth. furosemide (Lasix) 40 mg tablet Take 40 mg by mouth in the morning and at bedtime. hydrALAZINE (Apresoline) 100 mg tablet Take 100 mg by mouth in the morning, afternoon, and at bedtime. isosorbide mononitrate ER (Imdur) 60 mg 24 hr tablet Take 60 mg by mouth in the morning. levothyroxine (Synthroid, Levoxyl) 112 mcg tabl (more content not included)... [facility] 05-27-2024 Note Pt is here for a one year follow up. Pt denies chest pain, palpatations, sob. Review of Systems All other systems reviewed and are negative. [facility] 04-10-2024 Progress note Note Date/Time April 10, 2024 10:30am [facility] [address] [place] [address] Wound Center Provider Note Signed Patient: Harman Mcleod MR#: [id number] : 1940 Acct:[id number] Age/Sex: 83 / F Copies to: MD Janell Oliver APRN~ HPI Date of Visit Date of Visit: Date of Service: 04/10/2024 Time of Service: 10:26 Narrative HPI: 12/11/23 Harman is an 83 year old presenting to [facility] wound care for an initial visit for [...] present for the entire visit, [facility], the left leg will be treated [...] wrapped again today for good measure and [facility] can remove next week and start stockings or wraps if something is open on the legs, family and friend present for the visit, does not need to return to the office unless new ulcers do develop, spoke about her getting established with a supervisor adult education and so hopefully she will follow through [...] to go to the ED per the [facility] nurse but she had refused this and [...] bilateral lower leg ulcers Mode of Arrival/ Staff Counselor: Friend Assistive Device Used Today: Walker Lives with:: Significant Other Appetite Description: Within Normal Limits Who helps w/ dressing change?: Home Health Why Do You Need Help?: Can't Reach Ulcer, Limited mobility, Unsafe leave home byself and Taxing effort to leave home Smoking Status: Former smoker [facility] Medical History (Updated 04/10/24 @ 10:30 by Janell Mathews APRN) Leg ulcer, left Cataract Problem List clean-up per request of Phys. 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 [facility] Vaginal lesion Problem List clean-up per request [...] List clean-up per request of Phys. EHR [facility] Surgical History History of bladder suspension procedure Problem List clean-up per request of Phys. EHR [facility] H/O: hysterectomy Problem List clean-up per request of Phys. EHR [facility] History of appendectomy Problem List clean-up per request of Phys. EHR [facility] History of heart artery stent Problem List clean-up per request of Phys. EHR [facility] Family History (Updated 06/01/23 @ 08:45 by [...] DAILY 04/25/19 [History Confirmed 12/11/23] omega-3s 300 bw-yko-cep-other [id number] oil 1,000 mg capsule (Chittenango-3 Fish Oil) 2 cap PO BID 04/25/19 [...] Stasis Ulcer Thickness: Skin Breakdown Bed Appearance: Penermon Percent of Wound Bed Granulated/Red: 100 Percent [...] <Electronically signed by FERNY Mathews> 04/10/24 1030 [facility] Work Phone: 1(944) 811-840107-16-2024 Progress note Author Janell Mathews [facility] March 26, 2024 9:51am Note Date/Time March 26, 2024 9:51 am [facility] [address] [place] [address] Wound Center Provider Note Signed Patient: Harman Mcleod MR#: [id number] : 1940 Acct:[id number] Age/Sex: 83 / F Copies to: MD Janell Oliver APRN~ HPI Date of Visit Date of Visit: Date of Service: 03/26/2024 Time of Service: 09:47 Narrative HPI: 12/11/23 Harman is an 83 year old presenting to [facility] wound care for an initial visit for [...] present for the entire visit, she has [facility], the left leg will be treated [...] wrapped again today for good measure and [facility] can remove next week and start stockings or wraps if something is open on the legs, family and friend present for the visit, does not need to return to the office unless new ulcers do develop, spoke about her getting established with a supervisor adult education and so hopefully she will follow through [...] to go to the ED per the [facility] nurse but she had refused this and [...] bilateral lower leg ulcers Mode of Arrival/ Staff Counselor: Friend Assistive Device Used Today: Walker Lives with:: Significant Other Appetite Description: Within Normal Limits Who helps w/ dressing change?: Home Health Why Do You Need Help?: Can't Reach Ulcer, Limited mobility, Unsafe leave home byself and Taxing effort to leave home Smoking Status: Former smoker [facility] Medical History (Updated 02/13/24 @ 10:54 by [...] List clean-up per request of Phys. EHR [facility] Surgical History History of bladder suspension procedure Problem List clean-up per request of Phys. EHR Cmte H/O: hysterectomy Problem List clean-up per request of Phys. EHR Cmte History of appendectomy Problem List clean-up per request of Phys. EHR Cmte History of heart artery stent Problem List clean-up per request of Phys. EHR [facility] Family History (Updated 06/01/23 @ 08:45 by [...] DAILY 04/25/19 [History Confirmed 12/11/23] omega-3s 300 ti-kpa-ddl-other [id number] oil 1,000 mg capsule (Chittenango-3 Fish Oil) 2 cap PO BID 04/25/19 [...] Breakdown Bed Appearance: Epithelial Tissue or Bridge, Penermon and Yellow Percent of Wound Bed Granulated/Red: [...] <Electronically signed by FERNY Mathews> 03/26/24 0951 [facility] Work Phone: 1(365) 995-892906-04-2024 Progress note Author Janell Mathews [facility] February 13, 2024 10:55am Note Date/Time February 13, 2024 10:55 am [facility] [address] [place] [address] Wound Center Provider Note Signed Patient: Harman Mcleod MR#: [id number] : 1940 Acct:[id number] Age/Sex: 83 / F Copies to: MD Janell Oliver APRN~ HPI Date of Visit Date of Visit: Date of Service: 02/13/2024 Time of Service: 10:47 Narrative HPI: 12/11/23 Harman is an 83 year old presenting to [facility] wound care for an initial visit for [...] present for the entire visit, [facility], the left leg will be treated [...] spoke about her getting established with a supervisor adult education and so hopefully she will follow through [...] to go to the ED per the [facility] nurse but she had refused this and wanted to come to this appt instead Subjective Pain Left Leg: Pain Description: Intermittent Pain Intensity: 0 Wound/Ulcer History When did wound start?: August 2023 bilateral lower leg ulcers Mode of Arrival/ Staff Counselor: Friend Assistive Device Used Today: Walker Lives with:: Significant Other Appetite Description: Within Normal Limits Who helps w/ dressing change?: Home Health Why Do You Need Help?: Can't Reach Ulcer, Limited mobility, Unsafe leave home byself and Taxing effort to leave home Smoking Status: Former smoker [facility] Medical History (Updated 02/13/24 @ 10:54 by [...] List clean-up per request of Phys. EHR [facility] Diabetes mellitus Problem List clean-up per request of Phys. EHR Cmte Hypertension Problem List clean-up per request of Phys. EHR [facility] Surgical History History of bladder suspension procedure Problem List clean-up per request of Phys. EHR [facility] H/O: hysterectomy Problem List clean-up per request of Phys. EHR [facility] History of appendectomy Problem List clean-up per request of Phys. EHR [facility] History of heart artery stent Problem List clean-up per request of Phys. EHR [facility] Family History (Updated 06/01/23 @ 08:45 by [...] DAILY 04/25/19 [History Confirmed 12/11/23] omega-3s 300 bf-mev-nln-other pcpay9f-vhpi oil 1,000 mg capsule (Chittenango-3 Fish Oil) 2 cap PO BID 04/25/19 [...] Posterior Thigh: Bed Appearance: Beefy Red and Penermon Percent of Wound Bed Granulated/Red: 0 Percent [...] <Electronically signed by FERNY Mathews> 02/13/24 1055 [facility] Work Phone: 1(757) 479-820805-21-2024 Progress note Author Janell Mathews [facility] January 30, 2024 10:44am Note Date/Time January 30, 2024 10:44 am [facility] [address] [place] [address] Wound Center Provider Note Signed Patient: Harman Mcleod MR#: [id number] : 1940 Acct:[id number] Age/Sex: 83 / F Copies to: MD Janell Oliver APRN~ HPI Date of Visit Date of Visit: Date of Service: 01/30/2024 Time of Service: 10:37 Narrative HPI: 12/11/23 Harman is an 83 year old presenting to [facility] wound care for an initial visit for [...] present for the entire visit, [facility], the left leg will be treated [...] spoke about her getting established with a supervisor adult education and so hopefully she will follow through [...] bilateral lower leg ulcers Mode of Arrival/ Staff Counselor: Friend Assistive Device Used Today: Walker Lives with:: Significant Other Appetite Description: Within Normal Limits Who helps w/ dressing change?: Home Health Why Do You Need Help?: Can't Reach Ulcer, Limited mobility, Unsafe leave home byself and Taxing effort to leave home Smoking Status: Former smoker [facility] Medical History (Updated 01/30/24 @ 10:43 by [...] List clean-up per request of Phys. EHR [facility] Diabetes mellitus Problem List clean-up per request of Phys. EHR [facility] Hypertension Problem List clean-up per request of Phys. EHR [facility] Surgical History History of bladder suspension procedure Problem List clean-up per request of Phys. EHR [facility] H/O: hysterectomy Problem List clean-up per request of Phys. EHR [facility] History of appendectomy Problem List clean-up per request of Phys. EHR [facility] History of heart artery stent Problem List clean-up per request of Phys. EHR [facility] Family History (Updated 06/01/23 @ 08:45 by [...] DAILY 04/25/19 [History Confirmed 12/11/23] omega-3s 300 kj-omz-vmh-other moore5f-swvk oil 1,000 mg capsule (Chittenango-3 Fish Oil) 2 cap PO BID 04/25/19 [...] Posterior Thigh: Bed Appearance: Beefy Red and Penermon Percent of Wound Bed Granulated/Red: 100 Percent [...] <Electronically signed by FERNY Mathews> 01/30/24 1044 [facility] Work Phone: 1(894) 310-278604-18-2024 Progress note Author Janell Mathews [facility] December 28, 2023 11:22am Note Date/Time December 28, 2023 11: 22am [facility] [address] [place] [address] Wound Center Provider Note Signed Patient: Harman Mcleod MR#: [id number] : 1940 Acct:[id number] Age/Sex: 83 / F Copies to: MD Janell Oliver APRN~ HPI Date of Visit Date of Visit: Date of Service: 12/28/2023 Time of Service: 11:19 Narrative HPI: 12/11/23 Harman is an 83 year old presenting to [facility] wound care for an initial visit for [...] present for the entire visit, she has [facility], the left leg will be treated with [...] wrapped again today for good measure and [facility] can remove next week and start stockings or wraps if something is open on the legs, family and friend present for the visit, does not need to return to the office unless new ulcers do develop, spoke about her getting established with a supervisor adult education and so hopefully she will follow through on that, spoke about compression socks too forlong term use Subjective Pain Left Leg: Pain Intensity: 0 Wound/Ulcer History When did wound start?: August 2023 bilateral lower leg ulcers Mode of Arrival/ Staff Counselor: Friend Assistive Device Used Today: Walker Lives with:: Significant Other Appetite Description: Within Normal Limits Who helps w/ dressing change?: Home Health Why Do You Need Help?: Can't Reach Ulcer, Limited mobility, Unsafe leave home byself and Taxing effort to leave home Smoking Status: Former smoker [facility] Medical History (Updated 12/11/23 @ 09:30 by [...] release 24 hr 200 mg PO DAILY 08/15/19 [History Confirmed 12/11/23] omega-3s 300 of-rwm-zjp-other vykku6e-ukfi oil 1,000 mg capsule (Chittenango-3 Fish Oil) 2 cap PO BID 04/25/19 [...] 15 Dictated By: Janell Mathews APRN DD/ Signed By: <Electronically signed by FERNY Mathews> 12/28/23 1122 [facility] Work Phone: 1(140) 410-659204-01-2024 Progress note Author Janell Mathews [facility] December 11, 2023 9:35am Note Date/Time December 11, 2023 9:35 am [facility] [address] [place] [address] Wound Center Provider Note Signed Patient: Harman Mcleod MR#: [id number] : 1940 Acct:[id number] Age/Sex: 83 / F Copies to: MD Janell Oliver APRN~ HPI Date of Visit Date of Visit: Date of Service: 12/11/2023 Time of Service: 09:27 Narrative HPI: 12/11/23 Harman is an 83 year old presenting to [facility] wound care for an initial visit for [...] present for the entire visit, she has [facility], the left leg will be treated with [...] bilateral lower leg ulcers Mode of Arrival/ Staff Counselor: Friend Assistive Device Used Today: Walker Lives with:: Significant Other Appetite Description: Within Normal Limits Who helps w/ dressing change?: Home Health Why Do You Need Help?: Can't Reach Ulcer, Limited mobility, Unsafe leave home byself and Taxing effort to leave home Smoking Status: Former smoker [facility] Medical History (Updated 12/11/23 @ 09:30 by [...] List clean-up per request of Phys. EHR [facility] History of heart artery stent Problem List clean-up [facility] Family [facility] (Updated 06/01/23 @ [...] DAILY 04/25/19 [History Confirmed 12/11/23] omega-3s 300 ml-kxg-cvr-other nwoqa8n-nlfj oil 1,000 mg capsule (Chittenango-3 Fish Oil) 2 cap PO BID 04/25/19 [...] Breakdown Bed Appearance: Epithelial Tissue or Bridge, Penermon and Yellow Percent of Wound Bed Granulated/Red: [...] By: <Electronically signed by FERNY Mathews> 12/11/23934 [facility] Work Phone: 1(725) 926-916210-10-2023 NoteHNO ID: [id number] Author: Winnie Guzmán PA-C Service: ? Author Type: Physician Lead Laying And Gluing Machine Operator Type: Progress Notes Filed: 06/20/2023 3:58 PM Note Text: PATIENT NAME: Harman Mcleod CLINIC NO.: [id number] ATTENDING PHYSICIAN: Wallace Stone MD DATE OF [...] Negative LVI, 2 SNL negative, ER and CO >95% positive, Her2 IHC 1+ Treatment History: [...] 6.4 10/24/2017 7.3 Al (more content not included)...[facility]10-10-2023 Nurse Note * Lina Lopes MA - 06/20/2023 2:49 PM EDT Patient would like to know if she needs a mammogram? She was told in Oct that she would need one in6 months. Lina Lopes MA documented [facility] History of Present illness Narrative* Winnie Guzmán PA-C - 06/20/2023 2:30 PM EDT Images from the original note were not included. PATIENT NAME: Harman Mcleod CLINIC NO.: [id number] ATTENDING PHYSICIAN: Wallace Stone MD DATE OF [...] Negative LVI, 2 SNL negative, ER and CO >95% positive, Her2 IHC 1+ Treatment History: [...] Range Status 06/20/2023 4.8 % Final Abs [place] Date Value Ref Range Status 06/20/2023 0.49 [...] follow up. R Breast T1b,N0,M0- ER and CO >95% positive and Her-2 IHC 1+ tumor post Lumpectomy and SNL 10/2022. Reviewed path and she elected not to proceed with XRT and started Arimidex in 11/2022. Continues to tolerate well. Mammogram in 07/2023 (order placed). See us in 4 months. Plan is for 5 years of AI therapy Osteoporosis- On Prolia started 08/[address] Perry Vulvar high grade dysplasia- Follows [facility] at [facility] R Leg swelling and pain and h/o PVD- Follows vascular HTN--managed by PCP Winnie Guzmán PA-C CC: MD Mateus Spicer MD documented in this encounterK[facility]09-21-2023 Evaluation note* Encounter Date Diagnosis Assessment Notes [...] In addition I took her to the Requirements Engineer and performed a right iliac venogram which [...] offer her a second opinion at the [facility] vascular medicine program. She declined. I will see her as needed in the future. [employer] Other 06-29-2023 Evaluation note* Encounter Date Diagnosis Assessment Notes [...] to call us with any concerns whatsoever. [employer] Other 06-06-2023 NoteHNO ID: [id number] Author: Wallace Stone MD Service: ? Author Type: Physician Type: Progress Notes Filed: 02/14/2023 10:49 AM Note Text: PATIENT NAME: Harman Mcleod CLINIC NO.: [id number] ATTENDING PHYSICIAN: Wallace Stone MD DATE OF [...] Negative LVI, 2 SNL negative, ER and CO >95% positive, Her2 IHC 1+ Treatment History: [...] 04/28/2020 1.12 BUN (mg/dL) (more content not included)...[facility] History of Present illness Narrative* Wallace Stone MD - 02/14/2023 10:37 AM EDT Images from the original note were not included. PATIENT NAME: Harman Mcleod CLINIC NO.: [id number] ATTENDING PHYSICIAN: Wallace Stone MD DATE OF [...] Negative LVI, 2 SNL negative, ER and CO >95% positive, Her2 IHC 1+ Treatment History: [...] Range Status 02/14/2023 8.3 % Final Abs [place] Date Value Ref Range Status 02/14/2023 0.86 [...] follow up. R Breast T1b,N0,M0- ER and CO >95% positive and Her-2 IHC 1+ tumor post Lumpectomy and SNL 10/2022. Reviewed path and she elected not to proceed with XRT and started Arimidex in 11/2022 and toleraing well. Plan for 5 years of therapy. Osteoporosis- On Prolia started 08/[address] Perry Vulvar high grade dysplasia- Follows [facility] at [facility] R Leg swelling and pain and h/o PVD- Follows vascular HTN Rash- refer to Derm Thank you for the kind referral. If there are any questions and or concerns please do not hesitate to contact me at [phone]. Wallace Stone MD Hematology/Medical Oncology [facility] I spent a total of 30 minutes on the date of the service which included preparing to see the patient, eukj-rl-pyep patient care, completing clinical documentation, obtaining and/or reviewing separately obtained history, performing a medically appropriate examination, counseling and educating the pat ient/family/caregiver, and ordering medications, tests, or procedures. CC: MD Mateus Spicer MD documented in this encounterK[facility]03-29-2023 Evaluation note* Encounter Date Diagnosis Assessment Notes [...] primary care provider as well as her strapper. We will continue to follow her along and see her again in a couple of months and see how she is doing with her pumps, conservative efforts, and weight management. She knows to call us in the meantime with any other additional concerns or complaints. [employer] [facility]* Encounter Date Diagnosis Assessment [...] specified soft tissue disorders (ICD-10 - M79.89) [employer] Other 03-08-2023 Miscellaneous Notes* Telephone Encounter - Adriana Pereira Pss - 11/16/2022 8:40 AM EST Called Vascular office spoke with Jessy. They have received this referral and have patient scheduledwith Dr Gonzales on 11/23 @ 10:00. Adriana Pereira Pss * Telephone Encounter - Kira Ko [facility] - 11/10/2022 9:38 AM EST Records faxed. * Telephone Encounter - Adriana Pereira [facility] - 11/10/2022 8:46 AM EST Janeth: Information ready for you. Adriana Pereira Pss * Telephone Encounter - Carlos Brooks - 11/09/2022 2:44 PM EST Vascular Consult [facility] Previous patient of Dr. Mendez 3 years or more. Janeth/Dudley: Can you please refer patient and follow up? Thanks! Carlos Brooks documented in this encounterKettering [facility]03-01-2023 NoteHNO ID: [id number] Author: Wallace Stone MD Service: ? Author Type: Physician Type: Progress Notes Filed: 11/09/2022 2:24 PM Note Text: PATIENT NAME: Harman Mcleod CLINIC NO.: [id number] ATTENDING PHYSICIAN: Wallace Stone MD DATE OF SERVICE: November 09, [address] Banks referring provider defined for this encounter. here is an update on a follow up visit on female Harman Mcleod at the clinic 11/09/2022 Diagnosis: T1b, N0, M0- R breast, Tumor 9 mm, Grade 2, Margins negative, Negative LVI, 2 SNL negative, ER and CO >95% positive, Her2 IHC 1+ Treatment History: [...] (mg/dL) Date Value 0 (more content not included)...[facility] [id number] History of Present illness Narrative* Wallace Stone MD - 11/09/2022 2:00 PM EST Images from the original note were not included. PATIENT NAME: Harman Mcleod CLINIC NO.: [id number] ATTENDING PHYSICIAN: Wallace Stone MD DATE OF SERVICE: November 09, 2022 Dear No referring provider defined for this encounter. here is an update on a follow up visit on female Harman Mcleod at the clinic 11/09/2022 Diagnosis: T1b, N0, M0- R breast, Tumor 9 mm, Grade 2, Margins negative, Negative LVI, 2 SNL negative, ER and CO >95% positive, Her2 IHC 1+ Treatment History: [...] follow up. R Breast T1b,N0,M0- ER and CO >95% positive and Her-2 IHC 1+ tumor post Lumpectomy and SNL 10/2022. Reviewed path and she may skip radiation and also discussed hormonal; therapy with an AI and she will start Arimidex. Discussed adverse events and she wishes to proceed. Osteoporosis- On Prolia started 08/[address] Perry Vulvar high grade dysplasia- Follows [facility] at [place] and next appointment 11/24/2022 CRI R Leg swelling and pain and h/o PVD- refer to vascular HTN Thank you for the kind referral. If there are any questions and or concerns please do not hesitate to contact me at [phone]. Wallace Stone MD Hematology/Medical Oncology [facility] [place] spent a total of 30 minutes on the date of the service which included preparing to see the patient, chzh-xx-[id number] patient care, completing clinical documentation, obtaining and/or reviewing separately obtained history, performing a medically appropriate examination, counseling and educating the pat ient/family/caregiver, and ordering medications, tests, or procedures. CC: MD Mateus Spicer MD documented in this encounterKettering Health [facility]02-08-2023 NoteOPERATIVE NOTE OPERATION DATE: 10/19/2022 PREOPERATIVE DIAGNOSIS: Right breast cancer. POSTOPERATIVE DIAGNOSIS: Right breast cancer. PROCEDURE: Needle localized right breast lumpectomy with sentinel lymph node biopsy. SURGEON: Iliana Gagnon M.D. ANESTHESIA: General laryngeal mask airway. EMBEDDED SOFTWARE MANAGER: SADI Hammer ESTIMATED BLOOD LOSS: Less [...] in good condition. CC: Mateus Perry M.D.[id number] NoteEXAMINATION: XR CHEST 2 V HISTORY: Pre-surgery [...] Electronically authenticated by: ALFONSO GEORGE Date: 2022-10-11 12:11[facility]01-13-2023 NoteHNO ID: [id number] Author: Maricn Shah MD Service: ? Author Type: Physician Type: Progress Notes Filed: 2022 6:06 AM Note Text: Radiation Oncology - New Patient/Consult Note PATIENT NAME: Harman Mcleod PATIENT REQUESTING PHYSICIAN: Dr. 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 PATIENT IDENTIFICATION: This patient was seen in the Department of Radiation Oncology at the [facility] with Marcin Shah MD. She was accompanied today by her family. Final recommendations will be communicated back to the requesting physician by way of the shared medical record, or letter to requesting physician via US mail. HISTORY OF PRESENT ILLNESS: Ms. Mcleod is an 82-year-old woman from [place], [place] who was discovered on screening mammogram from July 2022 to have an abnormality within the anterior upper outer quadrant of the right breast. This was confirmed on ultrasound and she underwent stereotactic biopsy on 08/19/2022 with pathology revealing intermediate grade IDC that was ER/CO positive HER2 negative. She has met with Dr. Nill to discuss her surgical treatment options likely [...] acetaminophen (TYLENOL EXTRA STRENGTH (more content not included)...[facility]01-12-2023 History of Present illness Narrative* Marcin Shah MD - 09/22/2022 11:38 PM EST Images from the original note were not included. Radiation Oncology - New Patient/Consult Note PATIENT NAME: Harman Mcleod PATIENT Signed: Marcin Shah MD I spent a total of 60 minutes on the date of the service which included preparing to see the patient, sfme-di-jlpb patient care, and counseling and educating the patient/family/caregiver. This document has been created with the use of voice recognition technology. It may contain inaccuracies, misspellings, inaccurate syntax or inappropriate word context that are a result of the inadequacies/shortcomings of said technology/software. documented in this encounterKettering Health [facility]01-12-2023 NoteHNO ID: [id number] Author: Wallace Stone MD Service: ? Author Type: Physician Type: Progress Notes Filed: 09/22/2022 5:19 PM Note Text: PATIENT NAME: Harman Mcleod CLINIC NO.: [id number] ATTENDING PHYSICIAN: Wallace Stone MD DATE OF [...] provisional grade 1 through 2, ER and CO greater than 95% positive, HER2/holden negative with an IHC score of 1+ and FISH negative at [facility]. This patient was subsequently referred to Dr. Iliana Gagnon for surgical consultation. Patient denies any previous history of abnormal mammograms and or breast biopsy. She has had a recent bone density in [place] and was diagnosed with osteoporosis and started on Prolia as well. Patient has a sister who was diagnosed with breast cancer at the age of 82 and her daughter diagnosed with breast cancer at the age of 37. She quit smoking approximately 4 years ago. 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 She [...] mouth daily at bedtime. Cut in half Uxchh-1-OAB-EPA-Fish Oil 1,000 mg (120 mg-180 mg) cap [...] mellitus, type 2) (HCC) (more content not included)...[facility]01-12-2023 History of Present illness Narrative* Wallace Stone MD - 09/22/2022 5:10 PM EST Images from the original note were not included. PATIENT NAME: Harman Mcleod [facility] NO.: [id number] ATTENDING PHYSICIAN: Wallace Stone MD DATE OF [...] provisional grade 1 through 2, ER and CO greater than 95% positive, HER2/holden negative with an IHC score of 1+ and FISH negative at [facility]. This patient was subsequently referred to Dr. Iliana Gagnon for surgical consultation. Patient denies any previous history of abnormal mammograms and or breast biopsy. She has had a recent bone density in [place] and was diagnosed with osteoporosis and started on Prolia as well. Patient has a sister who was diagnosed with breast cancer at the age of 82 and her daughter diagnosed with breast cancer at the age of 37. She quit smoking approximately 4 years ago. 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 She [...] mouth daily at bedtime. Cut in half Apzna-1-JCT-EPA-Fish Oil 1,000 mg (120 mg-180 mg) cap [...] ductal carcinoma, provisional grade 1-2, ER and CO greater than 95% positive, HER2/holden negative with [...] me to participate in Mrs. Harman Mcleod [facility], ifthere are any questions or concerns please do not hesitate to contact me at the number below. Wallace Stone M.D. Hematology/Medical Oncology [facility] [phone] CC: MD Mateus Spicer MD I spent a total of 60 minutes on the date of the service which included preparing to see the patient, eyhw-up-dmeh patient care, completing clinical documentation, obtaining and/or reviewing separately obtained history, performing a medically appropriate examination, counseling and educating the pat ient/family/caregiver, ordering medications, tests, or procedures, and communicating with other HCPs (not separately reported). documented in this encounterKettering [facility]01-12-2023 Miscellaneous Notes* Telephone Encounter - Lars Wilkerson [...] involved. Lars Wilkerson RN documented in this encounterKettering Health [facility]12-30-2022 NoteChief Complaint consultation for right breast cancer [...] biopsy that r evealed invasive ductal carcinoma, ER/CO +; Her2 holden negative; patient denies change [...] gms IV prior to OR SCDs Ordered: [facility] External Ambulatory Referral [facility] External Ambulatory Referral 2. 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 Garza. [facility] [employer] Phone: 1(262) 890-967110-18-2022 Hospital Discharge instructions* Discharge Instructions* Brody Ken [...] urinate call your doctor documented in [facility]PH[facility] [employer] Phone: 1(867) 373-410304-04-2022 History of Present illness Narrative* Brody Ken [...] Plunkett MD - 12/13/2021 2:12 PM EDT [facility] Attending Note Patient seen and evaluated [...] chart for or 12/13/21 documented in this [facility] Phone: 1([phone]) 165-929404-04-2022 Evaluation note* Diagnosis Vaginectomy w/ Cysto 12/13/21- Primary Other postprocedural status documented in this encounter [employer] Phone: [phone] 186-642704-04-2022 Hospital Discharge instructions* Instructions* Brody Ken RN [...] of: May 19, 2021 Content Version: 13.2 [email or web address]. Care instructions adapted under license by [employer]. If you have questions about a medical condition or this instruction, always ask your healthcare professional. [email or web address] disclaims any warranty or liability for your [...] urinate call your doctor documented in this [facility] Work Phone: 1([phone]) 879-392503-28-2022 History of Present illness Narrative* YANA Wallis [...] Disease: Yes, stents x 3, Dr. Keyes ([facility]) Hypertension: yes Active smoker: Quit 2017, [...] pcp potassium 3.3,wbc 12.6 documented in this [facility] Phone: 1(781) 952-188803-25-2022 Hospital Discharge instructions* Instructions* Yoanna Diaz PA [...] drive you home after your procedure. Your tanker driver must be 18 years of age [...] questions, call the Pre-Admission Testing Unit at [phone]. Day of Surgery/Procedure As a patient at [facility] you can expect quality medical and nursing care that is centered on your individual needs. Our goal is to make your surgical experience as comfortableas possible . Directions to the Surgery Center [facility] is located at [address] [place] [address]. Please pull into the Emergency parking lot and stop at the aluminum polisher richards. We offer free aluminum polisher service for all our surgery patients, if you choose not to have aluminum polisher parking we have additional parking across the street.You will enter the facility following the [facility] sign. Please stop at the reception centre manager desk where you will be checked in by the staff. If you have any questions please call [phone]. Transportation after your procedure. You will need a friend or family member to drive you home after your procedure. Your tanker driver must be18 years of age or [...] You may shave your face or neck. Jaroso your teeth but do not swallow water. [...] or the day of surgery, please call [phone], or [phone] documented in this [facility] Phone: 1(761) 881-766010-05-2021 History of Present illness Narrative* Parvin Rogel RN - 06/15/2021 10:[address] Kamla gan, pt cleared for phase II * Alla Dickerson DO - 06/15/2021 9:42 AM EDT OB Resident Progress Note Patient may be discharged home once she has met criteria in the PACU. Please perfect serve or page RESIDENTIAL PROGRAM MANAGER resident listed below with any questions, concerns, or if patient has not met PACU discharge criteria in 2-3 hours. . Please page first. Alla Dickerson DO RESIDENTIAL PROGRAM MANAGER Resident PGY3 Pager: [phone] [facility] 06/15/2021, 9:42 AM documented in this encounterMillennial Media Phone: 1(561) 252-626310-04-2021 Hospital Discharge instructions* Instructions* Alla Dickerson DO [...] cleared by your physician documented in this encounterMillennial Media Phone: [phone]) 288-134809-01-2021 Hospital Discharge instructions* Instructions* Na Cabezas APRN - GERRY - 05/12/2021 Pre-operative [...] public transportation ALONE is not acceptable. -Your tanker driver must be 18 years of age [...] Day of Surgery/Procedure As a patient at [facility] you can expect quality medical and nursing care that is centered on your individual needs. Our goal is to make your surgical experience as comfortableas possible . Directions to the Surgery Center [facility] is located at [address] [place] [address]. Please pull into the Emergency/Surgery Center parking lot and stop at the aluminum polisher richards. We offer free aluminum polisher service for all our surgery patients, if you choose not to have aluminum polisher parking we have additional parking across the [...] pharmacy bottles in a zip lock bag. Jaroso your teeth but do not swallow water. [...] DAY OF your surgery, you may call [phone] documented in this [employer] Phone: 1(839) 750-488809-01-2021 History of Present illness Narrative* Mandy Baker [...] Pedal edema Pneumonia PVD (peripheral vascular disease) ([facility]) Thyroid disease Under care of team 05/12/2021 dr Perry [facility]-last visit apr 2021 Under care of team 05/12/2021 [facility] Varicose vein of leg Patient [...] outside provider), cardiac stentx 3. Last saw strapper in December 2020. On Eliquis and aspirin prescribed from her strapper. Medical or cardiac clearance ordered: cardiac FERNY Andres CNP 05/12/21 2:43 PM documented in this encounterCore[facility] [employer] Work Phone: evaluation + Plan noteGeneral Surgery [place] Evaluation + Plan note Future Appointments Appointment Date:11/08/2022 02:00:00 PM Scheduled Provider:Iliana GAGNON MD Location:[facility] Appointment Type:[facility] 15 General Surgery [place] Evaluation + Plan note Future Appointments Appointment Date:11/22/2022 01:40:00 PM Scheduled Provider:Iliana GAGNON MD Location:[facility] Appointment Type:[place] [id number] General Surgery [place] evaluation note* Diagnosis Pre-op chest exam Pre-operative respiratory examination documented in this encounter [employer] Phone: evaluation note* Diagnosis S/p Partial vaginectomy with Ultrasonic Scalpel 06/15/21- 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, 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 documented in this encounter [employer] Phone: evaluation note* Diagnosis Pre-op chest exam Pre-operative respiratory examination documented in this encounter [employer] 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 documented in this encounter [employer]RETTWH[employer] Phone: evaluation note* Diagnosis 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, estrogen receptor positive (HCC)- Primary documented in [facility] encounter [facility]* Diagnosis 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 breast in female, estrogen receptor positive (HCC)- Primary documented in this encounter [facility] [place] [facility]* Diagnosis 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, estrogen receptor positive (HCC)- Primary Claudication in peripheral vascular disease (HCC) Peripheral vascular disease, unspecified documented in this encounter [facility]Eval[facility] [place] noteNo assessment information [facility] Work Phone: Evaluladwq noteNo [employer] 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, estrogen receptor positive (HCC)- Primary Rash Rash and other nonspecific skin eruption Other eczema Stage 3a chronic kidney disease (HCC) documented in this encounter [facility] note* Diagnosis 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, estrogen receptor positive (HCC)- Primary Stage 3a chronic kidney disease (HCC) documented in this encounter [facility]* Diagnosis Onset Date Resolution Status Altered mental status acute Diabetes mellitus acute Edema of both lower legs acu te Inflammation acute Leg ulcer, left acute Leg wound, right acute Open wound of left thigh acu te Uses walker acute Varicose veins of both legs with edema acute [facility] Work Phone: Evaluation note* Diagnosis Onset Date Resolution Status Altered mental status acute Diabetes mellitus acute Edema of both lower legs acu te Inflammation acute Leg ulcer, left acute Leg wound, right acute Open wound of left thigh acu te PAD (peripheral artery disease) acute Uses walker acute Varicose veins of both legs with edema acute [facility] Work Phone: Evaluation note* Diagnosis Hav (hallux abducto valgus), left- Primary Venous insufficiency Unspecified venous (peripheral) insufficiency Acquired deformity of left toe 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) Pain due to onychomycosis of toenails of both feet documented in this encounter [facility] HealthcareHistory general Narrative - Reported* Type Description Date Medical History DIABETES Medical History HTN Medical History ASTHMA Medical History 3 HEART STENT AND 1 LEG Medical History HYPERLIPIDEMIA Medical History HYPOTHYROID Medical History PAD Surgical History STENT PLACEMENTS Surgical History PSEUDO ANURYSM Surgical History BLADDER SUSPENSION Surgical History HYSTERECTOMY Surgical History RLE & RT RENAL DSA'S, ANGIOPLAS TIES & STENTING 04-25-2019 [employer] Other History general Narrative - Reported* Type [...] History VAGINAL ABLASION OF CANCER CELL S [employer] Other Hospital course Narrative No data available for this section General Surgery [facility] Discharge instructions No data available for this section General Surgery [employer] Progress note No data available for this section General Surgery [facility] [employer] Reason for referral (narrative) Referred by: Iliana GAGNON MD Referred by: Iliana GAGNON MD General Surgery [facility] [employer] Rexpic for referral (narrative)* Diagnostic Procedure Only (Routine) - Pending Review Specialty Diagnoses / Procedures Referred By Jacinta fernandez Referred To Contact [facility] Diagnoses 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, estrogen receptor positive (HCC) Procedures MAGNO DIAGNOSTIC BILATERAL DIAGNOSTIC MAMMOGRAPHY COMPUTER-AIDED DETCJ Winnie Guzmán PA-C [address] [place] [address] [place] [address] [facility] [address] [place] [address] Referral ID Status Reason Start Date Expiration Date Visits Requested Visits Authorized [id number] Pending Review Auto-Generat ed Referral 3 07/19/2024 1 1 [facility] for visit Narrative* Auth/Cert Specialty Diagnoses / Procedures Referred By Jacinta fernandez Referred To Contact Diagnoses Vaginal dysplasia VAGINAL DYSPLASIA Procedures CO OFFICE/OUTPT VISIT,PROCEDURE ONLY CO COMPLETE REMOVAL OF VAGINA WALL CO CYSTOURETHROSCOPY CYSTOSCOPY, VAGINECTOMY Emma Garza MD [address] [facility] [address], [facility] [place] [address] [employer] [address] [place] [address] Referral ID Status Reason Start Date Expiration Date Visits Re quested Visits Authorized [id number] 1 1 [employer] Phone: Summary Purpose Family History Relationship Condition Age at Onset Recorded Date/T josephine father Unknown mother Unknown Advance Directives Latest Code Status on File Code Status Date Activated Date Inactivated Comments Full Code 06/28/2022 6:57 AM Documents on File Type Date Recorded 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 Advance Directive(s) 01/16/2017 3:59 PM Documents on File Type Date Recorded 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 Advance Directive(s) 01/16/2017 3:59 PM [...] [address] [place] [address] Specialty Diagnoses / Procedures Referred By Contac t Referred To Contact Cardiology Diagnoses Pre-op chest exam Procedures EKG 12 lead Kimmie, Lat[place], PA-C [address] [place] [address] Referral ID Status Reason Start Date Expiration Date Visits Re quested Visits Authorized [id number] Open 11/22/2021 11/22/2022 1 1 Specialty Diagnoses / Procedures Referred By Contac t Referred To Contact Vascular Surgery Diagnoses Claudication in peripheral vascular disease (HCC) Procedures CONSULT TO VASCULAR SURGERY OFFICE/OUTPATIENT [facility] 60-74 MINUTES Wallace Stone MD [address] [place] [address] Referral ID Status Reason Start Date Expiration Date Visits Requested Visits Authorized [id number] Authorized PCP Requested Referral 11/16/2022 11/09/2023 1 1 Specialty Diagnoses / Procedures Referred By Contac t Referred To Contact Dermatology Diagnoses Rash Other eczema Procedures CONSULT TO DERMATOLOGY OFFICE/OUTPATIENT [facility] 60-74 MINUTES Wallace Stone MD [address] [place] [address] Referral ID Status Reason Start Date Expiration Date Visits Requested Visits Authorized [id number] Authorized PCP Requested Referral 02/14/2023 02/14/2024 1 [...] and content) DATE CREATED AUTHOR 02/05/2021 [facility] DATE CREATED AUTHOR AUTHOR'S ORGANIZ ATION 01/22/2023 [facility] DATE CREATED AUTHOR AUTHOR'S ORGANIZ ATION 06/22/2023 [facility] DATE CREATED AUTHOR AUTHOR'S ORGANIZ ATION 06/23/2023 [facility] DATE CREATED AUTHOR AUTHOR'S ORGANIZ ATION 07/13/2023 [facility] DATE CREATED AUTHOR AUTHOR'S ORGANIZ ATION 05/03/2024 [facility] DATE CREATED AUTHOR AUTHOR'S ORGANIZ ATION 06/14/2024 [facility] DATE CREATED AUTHOR AUTHOR'S ORGANIZ ATION 06/22/2024 [facility] EPIC Reason for Visit (unrecogniz ed section and content) Status Reason Specialty Diagnoses / Procedures Re ferred By Contact Referred To Contact Diagnoses 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 Procedures CO REMOVE VAGINA WALL, PARTIAL CO COLPOSCOPY,CERVIX W/ADJ VAGINA PARTICAL VAGINECTOMY WITH ULTRASONIC SCAPEL VAGINAL COLPOSCOPY WITH MICROSCOPE Kin Abarca MD [address] [facility] [phone] [address] [facility] Specialty Diagnoses / Procedures Referred By Contac t Referred To Contact Diagnoses Vaginal dysplasia VAGINAL DYSPLASIA Procedures CO OFFICE/OUTPT VISIT,PROCEDURE ONLY CO DESTRUCT,VAGINAL LESION(S),SIMPLE CO2 LASER VAPORIZATION OF LESIONS (FORT CONF# [id number] - JEREMIAS) Emma Garza MD [address] [facility] [address] [place] [address] [facility] [address] [place] [address] Referral ID Status Reason Start Date Expiration Date Visits Re quested Visits Authorized [id number] 1 1 Reason Comments Care Coordination Surgery update Reason Comments Consult Breast Cancer Reason Comments Breast Cancer Reason Comments Breast Cancer Reason Comments Referral Information Vascular Consult Reason Comments Breast Cancer 3 month follow up Reason Comments Breast Cancer 4 month follow up Reason Comments DM Foot Care Dm nail care Ordered Prescriptions (unrec ognized section and content) [...] 25 g 1 06/28/2022 bacitracin-polymyxin b (POLYSPORIN) [id number] UNIT/GM ointment Apply topically 2 times daily. [...] g 0 06/28/2022 06/28/2022 bacitracin-polymyxin b (POLYSPORIN) [id number] UNIT/GM ointment Apply topically 2 times daily. [...] Mon06/28/22 at 0915, Pre-op (day of surgery) 900 (New Bag - Prov ider: Jessica Robledo RN)906 (NoRateChange - Provider: FERNY Moses CRNA)940 (Paused - Provider: FERNY Moses CRNA - Comment: Switch to gravity)941 (Restarted - Provider: FERNY Moses CRNA) PRN [...] content) Team Status: Active Member Role Status Nila Perry MD Primary Care Provider Active Team Status: Inactive Member Role Status Nila Perry MD Primary Care Provider Active Start: April 09, 2024 End: April 09, 2024 Janell Mathews APRN Attending Provider Active St art: April 09, 2024 End: April 09, 2024 Team Status: Inactive Member Role Status Nila Perry MD Primary Care Provider Active Start: April 24, 2024 End: April 24, 2024 Janell Mathews APRN Attending Provider Active St art: April 24, 2024 End: April 24, 2024 Team Status: Active Member Role Status Nila Perry MD Primary Care Provider Active Start: March 26, 2024 Janell Mathews APRN Attending Provider Active art: March 26, 2024 Veterinary Meat Inspector Relationship Specialty Start Date End Date Mateus Perry MD [address] [place] [address] PCP - General Family Medicine 03/04/21 Veterinary Meat Inspector Relationship Specialty Start Date End Date Mateus Perry MD [address] [facility] [place] [address] PCP - General Family Medicine 03/04/21 Veterinary Meat Inspector Relationship Specialty Start Date End Date Mateus Perry MD [address] [facility] [place] [address] PCP - General Family Medicine 03/04/21 Veterinary Meat Inspector Relationship Specialty Start Date End Date Mateus Perry MD [address] [facility] [place] [address] PCP - General Family Medicine 03/04/21 Veterinary Meat Inspector Relationship Specialty Start Date End Date Mateus Perry MD PCP - General Family Medicine 01/05/17 Veterinary Meat Inspector Relationship Specialty Start Date End Date Mateus Perry MD PCP - General Family Medicine 01/05/17 Veterinary Meat Inspector Relationship Specialty Start Date End Date Mateus Perry MD PCP - General Family Medicine 01/05/17 Veterinary Meat Inspector Relationship Specialty Start Date End Date Mateus Perry MD PCP - General Family Medicine 01/05/17 Veterinary Meat Inspector Relationship Specialty Start Date End Date Mateus Perry MD PCP - General Family Medicine 01/05/17 Veterinary Meat Inspector Relationship Specialty Start Date End Date Mateus Perry MD PCP - General Family Medicine 01/05/17 Veterinary Meat Inspector Relationship Specialty Start Date End Date Mateus Perry MD [address] [facility] [place] [address] PCP - General Family Medicine 03/04/21 Team Status: Inactive Member Role Status Dates Mateus Perry MD Primary Care Provider Active Christiano Gonzales MD Attending Provider Active Veterinary Meat Inspector Relationship Specialty Start Date End Date Mateus Perry MD PCP - General Family Medicine 01/05/17 Veterinary Meat Inspector Relationship Specialty Start Date End Date Mateus Perry MD PCP - General Family Medicine 01/05/17 Team Status: Inactive Member Role Status Dates Mateus Perry MD Primary Care Provider Active Start: May 01, 2024 End: May 01, 2024 Christiano Gonzales MD Attending Provider Active Start: May 01, 2024 End: May 01, 2024 Veterinary Meat Inspector Relationship Specialty Start Date End Date Mateus Perry MD [address] [place] [address] [phone] PCP - General Family Medicine 02/14/24 Veterinary Meat Inspector Relationship Specialty Start Date End Date Mateus Perry MD [address] [place] [address] PCP - General Family Medicine 02/14/24 Source Comments (unrecognize d section and content) In the event this informatio n is protected by the Federal Confidentiality of Alcohol and Drug Abuse Patient Records regulations: The Federal rules restrict any use of the information to criminally investigate or prosecute any alcohol or drug abuse patient.[facility] Memorial[facility] the event this information is protected by the Federal Confidentiality of Alcohol and Drug Abuse Patient Records regulations: The Federal rules restrict any use of the information to criminally investigate or prosecute any alcohol or drug abuse patient.[facility] Memorial[facility] the event this information is protected by the Federal Confidentiality of Alcohol and Drug Abuse Patient Records regulations: The Federal rules restrict any use of the information to criminally investigate or prosecute any alcohol or drug abuse patient.[facility] Memorial[facility] the event this information is protected by the Federal Confidentiality of Alcohol and Drug Abuse Patient Records regulations: The Federal rules restrict any use of the information to criminally investigate or prosecute any alcohol or drug abuse patient.[facility] Memorial[facility] the event this information is protected by the Federal Confidentiality of Alcohol and Drug Abuse Patient Records regulations: The Federal rules restrict any use of the information to criminally investigate or prosecute any alcohol or drug abuse patient.[facility] Memorial[facility] the event this information is protected by the Federal Confidentiality of Alcohol and Drug Abuse Patient Records regulations: The Federal rules restrict any use of the information to criminally investigate or prosecute any alcohol or drug abuse patient.[facility] Memorial[facility] the event this information is protected by the Federal Confidentiality of Alcohol and Drug Abuse Patient Records regulations: The Federal rules restrict any use of the information to criminally investigate or prosecute any alcohol or drug abuse patient.[facility] Memorial[facility] the event this information is protected by the Federal Confidentiality of Alcohol and Drug Abuse Patient Records regulations: The Federal rules restrict any use of the information to criminally investigate or prosecute any alcohol or drug abuse patient.[facility] Goals (unrecognized section and content) Goals may [...] BE BASED ON THE PRIMARY CLINICAL RECORDS. [facility]. provides no warranty or guarantee of the accuracy or completeness of information in this document.
[2024-06-26] MEDS: 0.9 % SODIUM CHLORIDE 1,000 ML 999 ML IV (06:59)
[2024-06-26 07:13] LABS: Basophils Percent Auto 0.3 % (0.2-2.0); Eosinophils Absolute Auto 0.1 10^3/uL (0.0-0.7); Hematocrit 42.2 % (36.0-48.0); Hemoglobin 13.8 g/dL (12.0-16.0); Immature Granulocytes Abs Auto 0.06 10^3/uL (0.00-0.03); Immature Granulocytes Pct Auto 0.5 % (0.0-0.5); Lymphocytes Absolute Auto 1.6 10^3/uL (1.2-3.8); Lymphocytes Percent Auto 13.2 % (20.5-60.0); Mean Corpuscular HGB Conc 32.7 g/dL (29.9-35.2); Mean Corpuscular Hemoglobin 31.2 pg (26.7-34.0); Mean Corpuscular Volume 95.5 fL (81.0-99.0); Mean Platelet Volume 9.2 fL (9.5-13.5); Monocytes Absolute Auto 1.1 10^3/uL (0.3-0.8); Monocytes Percent Auto 9.1 % (1.7-12.0); Neutrophils Absolute Auto 9.1 10^3/uL (1.4-6.5); Neutrophils Percent Auto 75.9 % (43.0-75.0); Platelet Count 215 10^3/uL (150-450); Red Blood Count 4.42 10^6/uL (4.20-5.40); White Blood Count 11.9 10^3/uL (4.0-11.0)
--- NOTE | 2024-06-26 07:14 | ECG_ITS ---
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
[2024-06-26 07:20] LABS: Internal Control Within Normal Limits; Occult Blood Positive
[2024-06-26 07:23] LABS: Anion Gap 16.1; Calcium 10.7 mg/dL (8.5-10.1); Carbon Dioxide 29.3 mmol/L (21.0-32.0); Chloride 98 mmol/L (98-107); Estimated GFR (African America 37 (>=60 mL/min/1.73m^2); Estimated GFR (Non-African Ame 31 (>=60 mL/min/1.73m^2); Glucose 197 mg/dL (74-106); Potassium 4.4 mmol/L (3.5-5.1); Sodium 139 mmol/L (136-145)
[2024-06-26 07:25] LABS: Glucometer 165 mg/dL (74-106)
[2024-06-26 07:27] LABS: INR 1.07; Prothrombin Time 11.3 sec (9.0-11.6)
--- NOTE | 2024-06-26 08:22 | ED_ITS ---
HPI - GI Bleed General Chief complaint: GI Bleed Stated complaint: blood in stool Time Seen by Provider: 06/26/24 06:42 Source: patient Mode of arrival: ambulance Limitations: no limitations History of Present Illness HPI Narrative: Patient presents to ED complaining of GI bleeding. Patient states that she is on Eliquis for history of A-fib. She has had GI bleeding in the past. She states that about an hour and a half ago she started having lots of diarrhea that was mostly blood. She does report that she feels lightheaded when she stands up. Vital signs are stable here. Patient does have a history of h emorrhoids. She denies any lower abdominal pain. No vomiting. She denies chest pain Related Data Home Medications ?Medication ?Instructions ?Recorded ?Confirmed albuterol sulfate 2.5 mg/3 mL 2.5 mg inhalation Q4H PRN 03/04/23 06/26/24 (0.083 %) solution for nebulization shortness of breath or wheezing anastrozole 1 mg tablet 1 mg PO DAILY 03/04/23 06/26/24 aspirin 81 mg tablet,delayed 81 mg PO DAILY 03/04/23 06/26/24 release (Adult Low Dose Aspirin) furosemide 40 mg tablet 40 mg PO Q12H 03/04/23 06/26/24 isosorbide mononitrate 60 mg 60 mg PO DAILY 03/04/23 06/26/24 tablet,extended release 24 hr levothyroxine 112 mcg tablet 112 mcg PO DAILY 03/04/23 06/26/24 liothyronine 5 mcg tablet 10 mcg PO DAILY 03/04/23 06/26/24 metoprolol succinate 200 mg 200 mg PO DAILY 03/04/23 06/26/24 tablet,extended release 24 hr simvastatin 20 mg tablet 20 mg PO BEDTIME 03/04/23 06/26/24 sucralfate 1 gram tablet 1 g PO QID 03/04/23 06/26/24 febuxostat 40 mg tablet 40 mg PO DAILY 08/20/23 06/26/24 insulin glargine 100 unit/mL 10 unit subcut QAM 10/14/23 06/26/24 subcutaneous solution (Lantus U-100 Insulin) insulin aspart U-100 100 unit/mL 3 - 15 unit subcut ACHS 10/17/23 06/26/24 (3 mL) subcutaneous pen (Novolog FlexPen U-100 Insulin aspart) amlodipine 10 mg tablet 10 mg PO .qd 02/13/24 06/26/24 ferrous sulfate 325 mg (65 mg 325 mg PO DAILY 06/26/24 06/26/24 iron) tablet Previous Rx's ?Medication ?Instructions ?Recorded apixaban 5 mg tablet (Eliquis) 2.5 mg (1/2 x 5 mg) PO BID #60 tabs 02/19/24 cefdinir 300 mg capsule 600 mg (2 x 300 mg) PO DAILY #14 02/19/24 caps doxycycline monohydrate 100 mg 100 mg PO BID 7 days #14 caps 02/19/24 capsule hydralazine 50 mg tablet 50 mg PO TID #90 tabs 02/19/24 Allergies Allergy/AdvReac Type Severity Reaction Status Date / Time oxycodone AdvReac Severe nausea and Verified 06/26/24 06:29 vomiting tramadol AdvReac Severe Vomiting Verified 06/26/24 06:29 cefdinir AdvReac Unknown Vomiting Verified 06/26/24 06:29 ciprofloxacin AdvReac Unknown Vomiting Verified 06/26/24 06:29 Review of Systems ROS Status of ROS 10 or more systems reviewed and unremark able except as noted in history and below [facility] Medical History (Updated 06/26/24 @ 08:26 by Ann-Marie Vides DO) Anemia in stage 4 chronic kidney disease ?N18.4 - Chronic kidney disease, stage 4 (severe) (ICD-10) ?D63.1 - Anemia in chronic kidney disease (ICD-10) Abscess, gluteal, right ?L02.31 - Cutaneous abscess of buttock (ICD-10) Morbid obesity ?E66.01 - Morbid (severe) obesity due to excess calories (ICD-10) History of tobacco abuse ?Z87.891 - Personal history of nicotine dependence (ICD-10) Acute renal failure ?N17.9 - Acute kidney failure, unspecified (ICD-10) Elevated diaphragm ?J98.6 - Disorders of diaphragm (ICD-10) Pleural effusion ?J90 - Pleural effusion, not elsewhere classified (ICD-10) COPD with acute exacerbation ?J44.1 - Chronic obstructive pulmonary disease with (acute) exacerbation (ICD-10) Acute hypoxic respiratory failure ?J96.01 - Acute respiratory failure with hypoxia (ICD-10) Acute on chronic diastolic CHF (congestive heart failure) ?I50.33 - Acute on chronic diastolic (congestive) heart failure (ICD-10) Type 2 diabetes mellitus ?E11.9 - Type 2 diabetes mellitus without complications (ICD-10) Hypoxemia ?R09.02 - Hypoxemia (ICD-10) Abscess ?L02.91 - Cutaneous abscess, unspecified (ICD-10) Abscess ?L02.91 - Cutaneous abscess, unspecified (ICD-10) Cellulitis and abscess of left leg ?L03.116 - Cellulitis of left lower limb (ICD-10) ?L02.416 - Cutaneous abscess of left lower limb (ICD-10) Hyperkalemia ?E87.5 - Hyperkalemia (ICD-10) Moderate protein-calorie malnutrition ?E44.0 - Moderate protein-calorie malnutrition (ICD-10) CHF (congestive heart failure) ?I50.9 - Heart failure, unspecified (ICD-10) Hypoxia ?R09.02 - Hypoxemia (ICD-10) Acute infective exacerbation of chronic obstructive airway disease ?J44.1 - Chronic obstructive pulmonary disease with (acute) exacerbation (ICD-10) Weakness ?R53.1 - Weakness (ICD-10) Acute right hip pain ?M25.551 - Pain in right hip (ICD-10) Rheumatoid arthritis flare ?M06.9 - Rheumatoid arthritis, unspecified (ICD-10) Difficulty in walking ?R26.2 - Difficulty in walking, not elsewhere classified (ICD-10) Arthralgia ?M25.50 - Pain in unspecified joint (ICD-10) CAD, multiple vessel ?I25.10 - Atherosclerotic heart disease of [place] coronary artery without angina pectoris (ICD-10) Atrial fibrillation ?I48.91 - Unspecified atrial fibrillation (ICD-10) COPD (chronic obstructive pulmonary disease) ?J44.9 - Chronic obstructive pulmonary disease, unspecified (ICD-10) Gouty arthritis ?M10.9 - Gout, unspecified (ICD-10) Hypothyroidism (acquired) ?E03.9 - Hypothyroidism, unspecified (ICD-10) Hypokalemia ?E87.6 - Hypokalemia (ICD-10) Iron deficiency anemia ?D50.9 - Iron deficiency anemia, unspecified (ICD-10) Surgical History (Updated 02/18/24 @ 00:31 by Zena Bhakta) H/O right mastectomy ?Z90.11 - Acquired absence of right breast and nipple (ICD-10) H/O: hysterectomy ?Z90.710 - Acquired absence of both cervix and uterus (ICD-10) History of appendectomy ?Z90.49 - Acquired absence of other specified parts of digestive tract (ICD- 10) H/O heart artery stent ?Z95.5 - Presence of coronary angioplasty implant and graft (ICD-10) Family History (Updated 10/14/23 @ 23:05 by Zena Bhakta) Father Family history of CHF (congestive heart failure) Family history of cancer Family history of hypertension Sister Family history of cancer Family history of diabetes mellitus Mother Family history of diabetes mellitus Family history of hypertension Social History (Updated 02/13/24 @ 18:21 by Kira Meza LPN) Within the past year, how often did you have a drink containing alcohol: never Within the past year, how often did you have six or more drinks on one occasion: never Score interpretation: A score less than 3 is consistent with normal alcohol consumption. Smoking status: Former smoker Non-prescribed substance use: denies use Previous occupational history: retired Highest level of school completed/degree received: high school graduate Are you now , , , , never or living with a partner: In a typical week, how many times do you talk on the telephone with family, friends, or neighbors: 3 or more times per week How often do you get together with friends or relatives: 3 or more times per week How often do you attend yazidism or uatsdin services: 4 or more times per year Little interest or pleasure in doing things: not at all Feeling down, depressed, or hopeless: not at all Feel stressed/tense/nervous/anxious/difficulty sleeping: not at all Do you think of yourself as: straight/heterosexual Gender Identity: female Exam Narrative Exam Narrative: General: alert, no acute distress Cardiovascular: regular rate and rhythm, normal peripheral perfusion. Respiratory: Lungs CTA, respirations non labored. Extremities: no deformity, no trauma. Neurological: oriented x 4, LOC appropriate for age. Rectal exam reveals red stool and Hemoccult positive. No active hemorrhage that is seen externally no external hemorrhoid that is bleeding. Patient does have some pressure sores on her buttock area that are being taken care of by family with dressings applied. Constitutional Vital Signs, click to edit/add: Last Vital Signs Temp 98.2 F 06/26/24 06:29 Pulse 84 06/26/24 08:15 Resp 25 H 06/26/24 08:15 BP 124/86 06/26/24 08:15 Pulse Ox 94 L 06/26/24 06:30 O2 Del Method Room Air 06/26/24 06:29 Course Vital Signs Vital signs: Vital Signs Pulse Oximetry 95 06/26/24 06:27 Temperature 98.2 F 06/26/24 06:29 Pulse Rate 84 06/26/24 08:15 Respiratory Rate 25 H 06/26/24 08:15 Blood Pressure 124/86 06/26/24 08:15 Pulse Oximetry 94 L 06/26/24 06:30 Oxygen Delivery Method Room Air 06/26/24 06:29 MDM - GI Bleed MDM Narrative Medical decision making narrative: Patient's labs are nonacute at this time. Her hemoglobin is stable however the bleeding has just started about an hour and a half ago. She may continue to drop her hemoglobin and she is on Eliquis as well as feeling lightheaded when she stands up. I spoke to Dr. Blake who agrees with observation admission to monitor her hemoglobin. The patient is comfortable with this care plan. Differential Diagnosis Differential diagnosis: Likely hemorrhoids, gastritis, Lower gastrointestinal hemorrhage and melena Medical Records Attestation: I reviewed the patient's medical records. Lab Data Attestation: I reviewed the patient's lab results. Labs: Lab Results 06/26/24 06/26/24 06/26/24 Range/Units 07:07 07:11 07:24 WBC 11.9 H (4.0-11.0) 10^3/uL RBC 4.42 (4.20-5.40) 10^6/uL Hgb 13.8 (12.0-16.0) g/dL Hct 42.2 (36.0-48.0) % MCV 95.5 (81.0-99.0) fL MCH 31.2 (26.7-34.0) pg MCHC 32.7 (29.9-35.2) g/dL RDW 14.0 (11.0-15.0) % Plt Count 215 (150-450) 10^3/uL MPV 9.2 L (9.5-13.5) fL Neut % (Auto) 75.9 H (43.0-75.0) % Lymph % (Auto) 13.2 L (20.5-60.0) % [place] % (Auto) 9.1 (1.7-12.0) % Eos % (Auto) 1.0 (0.9-7.0) % Baso % (Auto) 0.3 (0.2-2.0) % Neut # (Auto) 9.1 H (1.4-6.5) 10^3/uL Lymph # (Auto) 1.6 (1.2-3.8) 10^3/uL [place] # (Auto) 1.1 H (0.3-0.8) 10^3/uL Eos # (Auto) 0.1 (0.0-0.7) 10^3/uL Baso # (Auto) 0.0 (0.0-0.1) 10^3/uL Abs Immat Gran (auto) 0.06 H (0.00-0.03) 10^3/uL Imm/Tot Granulo (auto) 0.5 (0.0-0.5) % PT 11.3 (9.0-11.6) sec INR 1.07 Sodium 139 (136-145) mmol/L Potassium 4.4 (3.5-5.1) mmol/L Chloride 98 (98-107) mmol/L Carbon Dioxide 29.3 (21.0-32.0) mmol/L Anion Gap 16.1 BUN 29.0 H (7.0-18.0) mg/dL Creatinine 1.61 H (0.55-1.02) mg/dL Est GFR ( Amer) 37 L (>=60 mL/min/1.73m^2) Est GFR (Non-Af Amer) 31 L (>=60 mL/min/1.73m^2) BUN/Creatinine Ratio 18.0 Glucose 197 H (74-106) mg/dL Calcium 10.7 H (8.5-10.1) mg/dL Stool Occult Blood Positive A POC Glucose 165 H (74-106) mg/dL Blood Type A Positive Antibody Screen Negative Discharge Plan Discharge Chief Complaint: GI Bleed Clinical Impression: Lower gastrointestinal hemorrhage Patient Disposition: Admitted as Observation Time of Disposition Decision: 08:26 Condition: Fair Prescriptions / Home Meds: No Action albuterol sulfate 2.5 mg /3 mL (0.083 %) solution for nebulization 2.5 mg inhalation Q4H PRN (Reason: shortness of breath or wheezing) anastrozole 1 mg tablet 1 mg PO DAILY aspirin [Adult Low Dose Aspirin] 81 mg tablet,delayed release (DR/EC) 81 mg PO DAILY furosemide 40 mg tablet 40 mg PO Q12H isosorbide mononitrate 60 mg tablet extended release 24 hr 60 mg PO DAILY levothyroxine 112 mcg tablet 112 mcg PO DAILY liothyronine 5 mcg tablet 10 mcg PO DAILY metoprolol succinate 200 mg tablet extended release 24 hr 200 mg PO DAILY simvastatin 20 mg tablet 20 mg PO BEDTIME sucralfate 1 gram tablet 1 g PO QID febuxostat 40 mg tablet 40 mg PO DAILY insulin glargine [Lantus U-100 Insulin] 100 unit/mL solution 10 unit subcut QAM insulin aspart U-100 [Novolog FlexPen U-100 Insulin] 100 unit/mL (3 mL) Insulin Pen 3 - 15 unit subcut ACHS amlodipine 10 mg tablet 10 mg PO .qd hydralazine 50 mg Tablet 50 mg PO TID Qty: 90 0RF Eliquis 5 mg Tablet 2.5 mg PO BID Qty: 60 11RF doxycycline monohydrate 100 mg capsule 100 mg PO BID 7 Days Qty: 14 0RF cefdinir 300 mg capsule 600 mg PO DAILY Qty: 14 0RF ferrous sulfate 325 mg (65 mg iron) tablet 325 mg PO DAILY Print Language: Macedonian Referrals: Gil Blake MD [Primary Care Provider] - 1 week
--- NOTE | 2024-06-26 09:30 | P.HP_ITS ---
HPI H&P: HPI History of Present Illness Chief complaint: blood in stool, GI BLEED Narrative: She was seen and evaluated in the office yesterday just for routine checkup. No concerns or complaints at that time. This morning she woke up about 430, had some belly cramping, tried to make it to the bathroom and it did not had diarrhea black and red stools. Did finally make it to the toilet and had several more bowel movements over the same period no other complaints other than the mild cramping. No fever, no chills, no chest pain or shortness of breath When I saw patient in the emergency room, she was resting comfortably in the bed, no real specific complaints at the present time. Opioid HPI Opioid Management Most Recent Pain and Opioid Data: Last Pain Scale 0 02/19/24 15:19 02/19/24 Last Pain Intensity 9 10/17/23 09:55 10/17/23 Last ORT Total Score 0 02/13/24 18:23 02/13/24 Last ORT Risk Category Low Risk 02/13/24 18:23 02/13/24 Review of Systems ROS Status of ROS 10 or more systems reviewed and unremark able except as noted in history and below [facility] Medical History (Updated 06/26/24 @ 08:26 by Ann-Marie Vides DO) Anemia in stage 4 chronic kidney disease ?N18.4 - Chronic kidney disease, stage 4 (severe) (ICD-10) ?D63.1 - Anemia in chronic kidney disease (ICD-10) Abscess, gluteal, right ?L02.31 - Cutaneous abscess of buttock (ICD-10) Morbid obesity ?E66.01 - Morbid (severe) obesity due to excess calories (ICD-10) History of tobacco abuse ?Z87.891 - Personal history of nicotine dependence (ICD-10) Acute renal failure ?N17.9 - Acute kidney failure, unspecified (ICD-10) Elevated diaphragm ?J98.6 - Disorders of diaphragm (ICD-10) Pleural effusion ?J90 - Pleural effusion, not elsewhere classified (ICD-10) COPD with acute exacerbation ?J44.1 - Chronic obstructive pulmonary disease with (acute) exacerbation (ICD-10) Acute hypoxic respiratory failure ?J96.01 - Acute respiratory failure with hypoxia (ICD-10) Acute on chronic diastolic CHF (congestive heart failure) ?I50.33 - Acute on chronic diastolic (congestive) heart failure (ICD-10) Type 2 diabetes mellitus ?E11.9 - Type 2 diabetes mellitus without complications (ICD-10) Hypoxemia ?R09.02 - Hypoxemia (ICD-10) Abscess ?L02.91 - Cutaneous abscess, unspecified (ICD-10) Abscess ?L02.91 - Cutaneous abscess, unspecified (ICD-10) Cellulitis and abscess of left leg ?L03.116 - Cellulitis of left lower limb (ICD-10) ?L02.416 - Cutaneous abscess of left lower limb (ICD-10) Hyperkalemia ?E87.5 - Hyperkalemia (ICD-10) Moderate protein-calorie malnutrition ?E44.0 - Moderate protein-calorie malnutrition (ICD-10) CHF (congestive heart failure) ?I50.9 - Heart failure, unspecified (ICD-10) Hypoxia ?R09.02 - Hypoxemia (ICD-10) Acute infective exacerbation of chronic obstructive airway disease ?J44.1 - Chronic obstructive pulmonary disease with (acute) exacerbation (ICD-10) Weakness ?R53.1 - Weakness (ICD-10) Acute right hip pain ?M25.551 - Pain in right hip (ICD-10) Rheumatoid arthritis flare ?M06.9 - Rheumatoid arthritis, unspecified (ICD-10) Difficulty in walking ?R26.2 - Difficulty in walking, not elsewhere classified (ICD-10) Arthralgia ?M25.50 - Pain in unspecified joint (ICD-10) CAD, multiple vessel ?I25.10 - Atherosclerotic heart disease of [place] coronary artery without angina pectoris (ICD-10) Atrial fibrillation ?I48.91 - Unspecified atrial fibrillation (ICD-10) COPD (chronic obstructive pulmonary disease) ?J44.9 - Chronic obstructive pulmonary disease, unspecified (ICD-10) Gouty arthritis ?M10.9 - Gout, unspecified (ICD-10) Hypothyroidism (acquired) ?E03.9 - Hypothyroidism, unspecified (ICD-10) Hypokalemia ?E87.6 - Hypokalemia (ICD-10) Iron deficiency anemia ?D50.9 - Iron deficiency anemia, unspecified (ICD-10) Surgical History (Updated 02/18/24 @ 00:31 by Zena Bhakta) H/O right mastectomy ?Z90.11 - Acquired absence of right breast and nipple (ICD-10) H/O: hysterectomy ?Z90.710 - Acquired absence of both cervix and uterus (ICD-10) History of appendectomy ?Z90.49 - Acquired absence of other specified parts of digestive tract (ICD- 10) H/O heart artery stent ?Z95.5 - Presence of coronary angioplasty implant and graft (ICD-10) Family History (Updated 10/14/23 @ 23:05 by Zena Bhakta) Father Family history of CHF (congestive heart failure) Family history of cancer Family history of hypertension Sister Family history of cancer Family history of diabetes mellitus Mother Family history of diabetes mellitus Family history of hypertension Social History (Updated 02/13/24 @ 18:21 by Kira Meza LPN) Within the past year, how often did you have a drink containing alcohol: never Within the past year, how often did you have six or more drinks on one occasion: never Score interpretation: A score less than 3 is consistent with normal alcohol consumption. Smoking status: Former smoker Non-prescribed substance use: denies use Previous occupational history: retired Highest level of school completed/degree received: high school graduate Are you now , , , , never or living with a partner: In a typical week, how many times do you talk on the telephone with family, friends, or neighbors: 3 or more times per week How often do you get together with friends or relatives: 3 or more times per week How often do you attend caodaism or orthodox services: 4 or more times per year Little interest or pleasure in doing things: not at all Feeling down, depressed, or hopeless: not at all Feel stressed/tense/nervous/anxious/difficulty sleeping: not at all Do you think of yourself as: straight/heterosexual Gender Identity: female Meds Home Medications and Allergies Home Medications ?Medication ?Instructions ?Recorded ?Confirmed ?Type albuterol sulfate 2.5 mg/3 mL 2.5 mg inhalation Q4H PRN 03/04/23 06/26/24 History (0.083 %) solution for nebulization shortness of breath or wheezing anastrozole 1 mg tablet 1 mg PO DAILY 03/04/23 06/26/24 History aspirin 81 mg tablet,delayed 81 mg PO DAILY 03/04/23 06/26/24 History release (Adult Low Dose Aspirin) furosemide 40 mg tablet 40 mg PO Q12H 03/04/23 06/26/24 History isosorbide mononitrate 60 mg 60 mg PO DAILY 03/04/23 06/26/24 History tablet,extended release 24 hr levothyroxine 112 mcg tablet 112 mcg PO DAILY 03/04/23 06/26/24 History liothyronine 5 mcg tablet 10 mcg PO DAILY 03/04/23 06/26/24 History metoprolol succinate 200 mg 200 mg PO DAILY 03/04/23 06/26/24 History tablet,extended release 24 hr simvastatin 20 mg tablet 20 mg PO BEDTIME 03/04/23 06/26/24 History sucralfate 1 gram tablet 1 g PO QID 03/04/23 06/26/24 History febuxostat 40 mg tablet 40 mg PO DAILY 08/20/23 06/26/24 History insulin glargine 100 unit/mL 10 unit subcut QAM 10/14/23 06/26/24 History subcutaneous solution (Lantus U-100 Insulin) insulin aspart U-100 100 unit/mL 3 - 15 unit subcut ACHS 10/17/23 06/26/24 History (3 mL) subcutaneous pen (Novolog FlexPen U-100 Insulin aspart) amlodipine 10 mg tablet 10 mg PO .qd 02/13/24 06/26/24 History apixaban 5 mg tablet (Eliquis) 2.5 mg (1/2 x 5 mg) PO BID #60 tabs 02/19/24 06/26/24 Rx cefdinir 300 mg capsule 600 mg (2 x 300 mg) PO DAILY #14 02/19/24 Rx caps doxycycline monohydrate 100 mg 100 mg PO BID 7 days #14 caps 02/19/24 Rx capsule hydralazine 50 mg tablet 50 mg PO TID #90 tabs 02/19/24 Rx ferrous sulfate 325 mg (65 mg 325 mg PO DAILY 06/26/24 06/26/24 History iron) tablet Allergies Allergy/AdvReac Type Severity Reaction Status Date / Time oxycodone AdvReac Severe nausea and Verified 06/26/24 06:29 vomiting tramadol AdvReac Severe Vomiting Verified 06/26/24 06:29 cefdinir AdvReac Unknown Vomiting Verified 06/26/24 06:29 ciprofloxacin AdvReac Unknown Vomiting Verified 06/26/24 06:29 Exam Constitutional Vital Signs, click to edit/add: Last Vital Signs Temp 98.2 F 06/26/24 06:29 Pulse 84 06/26/24 08:15 Resp 25 H 06/26/24 08:15 BP 124/86 06/26/24 08:15 Pulse Ox 94 L 06/26/24 06:30 O2 Del Method Room Air 06/26/24 06:29 Documenting provider has reviewed patient's vital signs: yes Common normals: no apparent distress Chest Common normals: inspection of chest normal and palpation of chest normal Respiratory Common normals: normal respiratory effort and no retractions Cardio Common normals: irregular rate and irregular rhythm Rate: tachycardic Rhythm: abnormal rhythm GI Common normals: Normal to inspection, nondistended, normoactive bowel sounds present and soft to palpation; tender Palpation: tender Details: epigastric Results Labs Labs: Short CBC 06/26/24 Range/Units 07:07 WBC 11.9 H (4.0-11.0) 10^3/uL Hgb 13.8 (12.0-16.0) g/dL Hct 42.2 (36.0-48.0) % Plt Count 215 (150-450) 10^3/uL BMP 06/26/24 07:07 Sodium 139 Potassium 4.4 Chloride 98 Carbon Dioxide 29.3 BUN 29.0 H Creatinine 1.61 H Glucose 197 H Calcium 10.7 H Assessment and Plan Assessment and Plan (1) Lower gastrointestinal hemorrhage: (2) Anemia in stage 4 chronic kidney disease: (3) Morbid obesity: (4) Type 2 diabetes mellitus: Qualifiers: Diabetes mellitus retirement insulin use: without hand fur cleaner use Diabetes mellitus complication status: without complication Qualified Code(s): E11.9 - Type 2 diabetes mellitus without complications (5) Moderate protein-calorie malnutrition: (6) CHF (congestive heart failure): (7) CAD, multiple vessel: (8) Atrial fibrillation: Qualifiers: Atrial fibrillation type: longstanding persistent Qualified Code(s): I48.11 - Longstanding persistent atrial fibrillation (9) COPD (chronic obstructive pulmonary disease): Qualifiers: COPD type: unspecified COPD Qualified Code(s): J44.9 - Chronic obstructive pulmonary disease, unspecified (10) Hypothyroidism (acquired): Plan Admission findings: Mild tachycardia with atrial fibrillation, respiratory distress, mild leukocytosis, positive occult blood secondary to acute upper versus lower gastrointestinal blood loss anemia. Patient has black and red stools. Acute upper and possibly lower GI blood loss anemia due to acute upper or lower gastrointestinal bleeding. So far hemoglobin normal. Check CBC every 6 hours. Transfuse if necessary. Start patient IV Protonix twice daily and maintain her Carafate. Hold anticoagulation for atrial fibrillation, clear liquid diet Diabetes lgetfsne-iyqpmxe-rfmkqisvf-insulin sliding scale , Chronic kidney disease stage IV-monitor daily Leukocytosis-this is likely secondary to demargination-no infectious etiology with no fever, no UTI symptoms no URI symptoms Mild sacral wound-consult to wound therapy Atrial fibrillation with mild rapid ventricular response-monitor daily. Hold off on Eliquefrain, maintain other medications Chronic combined congestive heart failure-maintain current medications COPD-stable no active symptoms Hypercholesterolemia-continue with home medications Hypothyroidism-continue with home medications Admission status: Patient with acute upper gastrointestinal bleeding. Hemoglobin is in normal range so far. Serial CBCs. If stable possible discharge tomorrow's will maintain observation status as medically necessary treatment may only span 1 midnight. If patient requires transfusion, medically necessary treatment will thus span 2 midnights and she will be changed to inpatient status
--- OUTSIDE RECORDS SUMMARY | 2024-06-26 09:45 | XMS_ITS | CCD ---
Author Organization [facility] CliniSyny Care Team Providers Care Network Control Technician Name Role Phone Mateus Perry MD Primary Care Provider Mateus Perry Primary Care Physician Mateus Perry MD Primary Care Provider [phone] Mateus Perry MD Primary Care Provider [phone] Mateus Perry Primary Care Provider [phone] Christiano Gonzales Attending Provider [phone] Christiano Gonzales Unavailable Millie Storm Unavailable SONALI MCKINNEY Admitting Unavailable SONALI MCKINNEY Attending Unavailable TAWNYY ., DR IGNACIO Primary Care Unavailable SONALI MCKINNEY Consulting Unavailable HOY ., DR IGNACIO Admitting Unavailable HOY ., DR IGNACIO Attending Unavailable HOY ., DR IGNACIO Primary Care Unavailable HOY ., DR IGNACIO Consulting Unavailable MIGUELITO TELELZ Consulting Unavailable HOY ., DR IGNACIO Admitting Unavailable HOY ., DR IGNACIO Attending Unavailable HOY ., DR IGNACIO Primary Care Unavailable HOY ., DR INGACIO Consulting Unavailable NILL ., DR BARRIENTOS Admitting [...] Ramirez Consulting Unavailable HANK, SONALI Admitting Unavailable HNAK, SONALI Attending Unavailable HANK, SONALI Consulting Unavailable HOY ., DR IGNACIO Admitting Unavailable HOY ., DR IGNACIO Attending Unavailable HOY ., DR IGNACIO Primary Care Unavailable HOY ., DR IGNACIO Consulting Unavailable SHONTO, DR JUDSON Plunkett Consulting Unavailable MISC, DR [...] HOY ., DR IGNACIO Primary Care Unavailable SHONTO, DR JUDSON Plunkett Consulting Unavailable NILL ., [...] Unavailable HOY ., DR IGNACIO Consulting Unavailable SHONTO, DR JUDSON Plunkett Consulting Unavailable HOY ., [...] Care Provider [phone] FERNY Mathews Attending Provider [phone] MD Mateus Perry Primary Care Provider [phone] FERNY Mathews Attending Provider [phone] Mateus Perry Primary Care Unavailable Janell Mathews Admitting Unavailable Janell Mathews Attending Unavailable Mateus Perry Primary Care Unavailable Janell Mathews Admitting Unavailable Janell Mathews Attending Unavailable JOSE MARIA KEYES Attending Unavailable CHERYL FARIA Attending Unavailable PEYMAN HENSLEY Attending Unavailable Mateus Perry MD Primary Care Provider [phone] Allergies Allergy Classification Reported Allergen(s) Allergy Type Date of Onset Reaction(s) Facility (18 sources) Acetaminophen / oxyCODONE; 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: [OXYCODONE-ACETAM INOPHEN] Drug Allergy 3 Other (See Comments), Intolerance, GI Upset [facility] (20 sources) Ciprofloxacin; 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: [ciprofloxacin] Drug Allergy 8 Hives, Urticaria (disorder), Other: See Comments [facility] (20 sources) oxyCODONE; 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: [oxycodone] Drug Allergy 9 Rash, Itching (finding) [facility] (19 sources) cefdinir; 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: [cefdinir] Drug Allergy 3 Vomiting (disorder), Other: See Comments, Vomiting, Other (See Comments) [facility] [place] (10 sources) traMADol; 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: [TRAMADOL] Drug Allergy 3 Mental Status Change, Other (See Comments) [facility] (1 source) Cefuroxime Drug Allergy 2 [facility] Work Phone: (5 sources) Acetaminophen; 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: [acetaminophen] Drug Allergy 9 [facility] (2 sources) Acetaminophen / oxyCODONE Drug Allergy 3 [facility] (1 source) Cefuroxime Drug Allergy 2 [facility] (2 sources) Ciprofloxacin Drug Allergy [facility] (1 source) cefdinir Drug Allergy 4 [facility] (1 source) Ciprofloxacin Drug Allergy 4 [facility] (1 source) oxyCODONE Drug Allergy 4 [facility] (1 source) traMADol Drug Allergy 4 [facility] Medications Current Medications Medication Drug [...] Polymyxin-class Antibacterial Start: End: bacitracin-polymyxin b (POLYSPORIN) 500-78210 UNIT/GM ointment Apply topically 2 times daily. [...] take 1 capsule by mouth twice daily Roland 3 1000 MG CAPS Take 1,000 mg by mouth 2 times daily 0 Active End: 05-12-2021 take 1 capsule by mouth once daily Roland-3 Fatty Acids (FISH OIL OMEGA-3) 1000 MG CAPS Take 1,000 mg by mouth daily 0 05/12/2021 Discontinued docusate sodium 50 mg / sennosides, halfway 8.6 mg oral tablet (2 sources) Start: [...] 12:00am Start: 09-02-2022 take 2 tablets by [facility] once daily Cytomel 5 mcg Tab 10 mcg = 2 tab(s), Oral, Daily, Refills(s) 0 Start Date: 09/02/22 Status: Ordered take 2 tablets by [facility] once daily liothyronine (Cytomel) 5 MCG tablet Take 2 tablets by mouth Daily Active take 1 tablet by [facility] every twenty-four hours Liothyronine Sodium 5 MCG [...] sources) Polyene Antifungal Start: 06-28-2022 nystatin (MYCOSTATIN) 477446 UNIT/GM powder Apply 3 times daily. 60 g 10 06/28/2022 Active nystatin (MYCOST ATIN) 012874 UNIT/GM powder Apply topically 2 times daily as needed 0 Active Tjjuf-9g-Hmh-Epa-Fish Oil (Roland-3 Fish Oil) 300-1,000 mg Capsule (4 sources) Start: 04-25-2019 Qesij-4h-Ldr-Epa-Fish Oil (Roland-3 Fish Oil) 300-1,000 mg Capsule Active 2 [...] by mouth 4 times daily 0 Active Dtztl-1-SLT-EPA-Fish Oil 1,000 mg (120 mg-180 mg) cap (8 sources) take 1 capsule by mouth twice daily Qudrn-3-ZZM-EPA-Fish Oil 1,000 mg (120 mg-180 mg) cap [...] Comment on above: TAKE 1 TABLET BY [facility] THREE TIMES A DAY DO NOT [...] sources) Long-term current use of anticoagulant; 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: [prison (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] Onset: 09-09-2022 Episodic Other aftercare (1 source) 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; 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: [DIRECTOR MUSEUM OR ZOO CURRNT USE ANTICOAGULANTS] Onset: 11-03-2022 Episodic Other aftercare (1 source) prison (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 oral hypoglycemic drugs; 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: [CORRECTION USE ORAL HYPOGLYCEMIC DX] Onset: 11-03-2022 Episodic Other aftercare (1 source) Other intermediate frame tender (current) drug therapy; 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: [OTH CORRECTION CURRENT DRUG THERAPY] Onset: 11-03-2022 Episodic Other [...] Onset: 08-13-2022 Episodic Other aftercare (1 source) 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 aspirin; 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: [CORRECTION CURRENT USE OF ASPIRIN] Onset: 08-25-2022 Episodic [...] Range Facility Office Visiton 06-12-2024 Follow-up visit [id number] Harman Mcleod 1940 Date Provider Department Center 06/12/2024 JOSE MARIA GARCIA CORI Orozco Family History Problem Relation Age of Onset Stroke Mother Coronary artery disease Father Heart attack Father Family Status - Relation Status Age at Mother Father Level of Service:76963 [place] OFFICE/OUTPATIENT ESTABLISHED HIGH MDM 40 MIN Normal [facility] 36on 06-10-2024 36 Pt informed hoys office updated Normal [facility] 37on 05-27-2024 37 Increase Zocor/simvastatin to 40 mg daily- from 20 mg for better cholesterol control Have blood drawn in 2-3 months for liver function and lipid levels- you must be fasting to have drawn Normal [facility] Office Visiton 05-27-2024 Follow-up visit [id number] Harman Mcleod 1940 Date Provider Department Center 05/27/2024 MITCH CHERYL CORI Orozco Family History Problem Relation Age of Onset Stroke Mother Coronary artery disease Father Heart attack Father Family Status - Relation Status Age at Mother Father Level of Service:88076 [place] OFFICE/OUTPATIENT ESTABLISHED LOW MDM 20 MIN Normal [facility] US ankle/arm indiceson 04-09 US ankle/arm indices [facility] [place] [address] Ultrasound Report Signed Patient: Harman Mcleod MR#: [id number] : 1940 Acct:[id number] Age/Sex: 83 / F ADM Date: 04/09/24 Loc: Room: Type: [facility] Attending Dr: Janell Mathews APRN Ordering [...] 140 Signed By: 04/09/24 1402 Normal [facility] US venous duplex LE BIon US venous duplex LE BI [facility] Main [place] [address] [place] [address] Ultrasound Report Signed Patient: Harman Mcleod MR#: [id number] : 1940 Acct:[id number] Age/Sex: 83 / F ADM Date: 04/09/24 Loc: Room: Type: [facility] Attending Dr: Janell Mathews APRN Ordering [...] 04/09/24 1359 Signed By: 04/09/[address] [facility] Consultation Noteon 06-21-20 Consultation Note [id number]#[id number] 0TIFF Normal [facility] CBC W Auto Differential pane l (Bld)on 06-20-2023 Basophils (Bld) [#/Vol] 0.03 10*3/uL Normal <0.11 [facility] Comment on above: Order Comment: Speci men Type: BLOOD SPECIMENOrdering Facility: [facility] Address: [address] [place] [address] Performed By: #### 5 7021-8 ####[facility] LABCLIA [id number] [place] [address] Basophils/100 WBC (Bld) 0.3 % Normal [facility] Comment on above: Order Comment: Speci men Type: BLOOD SPECIMENOrdering Facility: [facility] Address: [address] [place] [address] Performed By: #### 5 7021-8 ####[facility] LABCLIA [id number] [place] [address] Differential cell count method Nom (Bld) Auto Normal [facility] Comment on above: Order Comment: Speci men Type: BLOOD SPECIMENOrdering Facility: [facility] Address: [address] [place] [address] Performed By: #### 5 7021-8 ####[facility] LABCLIA [id number] [place] [address] Eosinophils (Bld) [#/Vol] 10*3/uL Normal <0.46 [facility] Comment on above: Order Comment: Speci men Type: BLOOD SPECIMENOrdering Facility: [facility] Address: [address] [place] [address] Performed By: #### 5 7021-8 ####[facility] LABCLIA [id number] [place] [address] Eosinophils/100 WBC (Bld) 0.2 % Normal [facility] Comment on above: Order Comment: Speci men Type: BLOOD SPECIMENOrdering Facility: [facility] Address: [address] [place] [address] Performed By: #### 5 7021-8 ####[facility] LABCLIA [id number] [place] [address] Erythrocyte distribution width (RBC) [Ratio] 14.4 % Normal 11.5-15.0 [facility] Comment on above: Order Comment: Speci men Type: BLOOD SPECIMENOrdering Facility: [facility] Address: [address] [place] [address] Performed By: #### 5 7021-8 ####[facility] LABCLIA [id number] [place] [address] Hematocrit (Bld) [Volume fraction] 34.9 % Low 36.0-46.0 [facility] Comment on above: Order Comment: Speci men Type: BLOOD SPECIMENOrdering Facility: [facility] Address: [address] [place] [address] Performed By: #### 5 7021-8 ####[facility] LABCLIA [id number] [place] [address] Hemoglobin (Bld) [Mass/Vol] 10.9 g/dL Low 11.5-15.5 [facility] Comment on above: Order Comment: Speci men Type: BLOOD SPECIMENOrdering Facility: [facility] Address: [address] [place] [address] Performed By: #### 5 7021-8 ####[facility] LABCLIA [id number] [place] [address] Immature granulocytes (Bld) [#/Vol] 0.11 10*3/uL High <0.10 [facility] Comment on above: Order Comment: Speci men Type: BLOOD SPECIMENOrdering Facility: [facility] Address: [address] [place] [address] Performed By: #### 5 7021-8 ####[facility] LABCLIA [id number] [place] [address] Immature granulocytes/100 WBC (Bld) 1.1 % Normal [facility] Comment on above: Order Comment: Speci men Type: BLOOD SPECIMENOrdering Facility: [facility] Address: [address] [place] [address] Performed By: #### 5 7021-8 ####[facility] LABCLIA [id number] [place] [address] Lymphocytes (Bld) [#/Vol] 1.97 10*3/uL Normal 1.00-4.00 [facility] Comment on above: Order Comment: Speci men Type: BLOOD SPECIMENOrdering Facility: [facility] Address: [address] [place] [address] Performed By: #### 5 7021-8 ####[facility] LABCLIA [id number] [place] [address] Lymphocytes/100 WBC (Bld) 19.3 % Normal [facility] Comment on above: Order Comment: Speci men Type: BLOOD SPECIMENOrdering Facility: [facility] Address: [address] [place] [address] Performed By: #### 5 7021-8 ####[facility] LABCLIA [id number] [place] [address] MCH (RBC) [Entitic mass] 29.9 pg Normal 26.0-34.0 [facility] Comment on above: Order Comment: Speci men Type: BLOOD SPECIMENOrdering Facility: [facility] Address: [address] [place] [address] Performed By: #### 5 7021-8 ####[facility] LABIA [id number] [place] [address] MCHC (RBC) [Mass/Vol] 31.2 g/dL Normal 30.5-36.0 [facility] Comment on above: Order Comment: Speci men Type: BLOOD SPECIMENOrdering Facility: [facility] Address: [address] [place] [address] Performed By: #### 5 7021-8 ####[facility] LABIA [id number] [place] [address] MCV (RBC) [Entitic vol] 95.6 fL Normal 80.0-100.0 [facility] Comment on above: Order Comment: Speci men Type: BLOOD SPECIMENOrdering Facility: [facility] Address: [address] [place] [address] Performed By: #### 5 7021-8 ####[facility] LABCLIA [id number] [place] [address] Monocytes (Bld) [#/Vol] 0.49 10*3/uL Normal <0.87 [facility] Comment on above: Order Comment: Speci men Type: BLOOD SPECIMENOrdering Facility: [facility] Address: [address] [place] [address] Performed By: #### 5 7021-8 ####[facility] LABCLIA [id number] [place] [address] Monocytes/100 WBC (Bld) 4.8 % Normal [facility] Comment on above: Order Comment: Speci men Type: BLOOD SPECIMENOrdering Facility: [facility] Address: [address] [place] [address] Performed By: #### 5 7021-8 ####[facility] LABCLIA [id number] [place] [address] Neutrophils (Bld) [#/Vol] 7.59 10*3/uL High 1.45-7.50 [facility] Comment on above: Order Comment: Speci men Type: BLOOD SPECIMENOrdering Facility: [facility] Address: [address] [place] [address] Performed By: #### 5 7021-8 ####[facility] LABCLIA [id number] [place] [address] Neutrophils/100 WBC (Bld) 74.3 % Normal [facility] Comment on above: Order Comment: Speci men Type: BLOOD SPECIMENOrdering Facility: [facility] Address: [address] [place] [address] Performed By: #### 5 7021-8 ####[facility] LABCLIA [id number] [place] [address] Nucleated RBC (Bld) [#/Vol] 10*3/uL Normal <0.01 [facility] Comment on above: Order Comment: Speci men Type: BLOOD SPECIMENOrdering Facility: [facility] Address: [address] [place] [address] Performed By: #### 5 7021-8 ####[facility] LABCLIA [id number] [place] [address] Nucleated RBC/100 WBC (Bld) [Ratio] 0.0 /100 WBC Normal [facility] Comment on above: Order Comment: Speci men Type: BLOOD SPECIMENOrdering Facility: [facility] Address: [address] [place] [address] Performed By: #### 5 7021-8 ####[facility] LABCLIA [id number] [place] [address] Platelet mean volume (Bld) [Entitic vol] 9.3 fL Normal 9.0-12.7 [facility] Comment on above: Order Comment: Speci men Type: BLOOD SPECIMENOrdering Facility: [facility] Address: [address] [place] [address] Performed By: #### 5 7021-8 ####[facility] LABCLIA [id number] [place] [address] Platelets (Bld) [#/Vol] 275 10*3/uL Normal 150-400 [facility] Comment on above: Order Comment: Speci men Type: BLOOD SPECIMENOrdering Facility: [facility] Address: [address] [place] [address] Performed By: #### 5 7021-8 ####[facility] LABCLIA [id number] [place] [address] RBC (Bld) [#/Vol] 3.65 10*6/uL Low 3.90-5.20 [facility] Comment on above: Order Comment: Speci men Type: BLOOD SPECIMENOrdering Facility: [facility] Address: [address] [place] [address] Performed By: #### 5 7021-8 ####[facility] LABIA [id number] [place] [address] WBC (Bld) [#/Vol] 10.21 10*3/uL Normal 3.70-11.00 [facility] Comment on above: Order Comment: Speci men Type: BLOOD SPECIMENOrdering Facility: [facility] Address: [address] [place] [address] Performed By: #### 5 7021-8 ####[facility] LABIA [id number] [place] [address] CNOVSPon 06-20-2023 CNOVSP Visit (SP) Office (HEMASA) HARMAN MCLEOD ([id number]) 1940 F Date Time Provider Department 06/20/23 2:30 PM WINNIE GUZMÁN During your visit today, we recorded the following information about you: Temperature Pulse Respiration Blood pressure 97.4 degrees 72/minute 16/minute 138/55 Weight Height 84.6 kg 1.549 m Winnie Guzmán PA-C 06/20/2023 3:58 PM Signed PATIENT NAME: Harman Mcleod [facility] NO.: [id number] ATTENDING PHYSICIAN: Wallace Stone MD DATE OF [...] 06/20/2023 1.77 (more content not included)... Normal [facility] Comprehensive metabolic 2000 panelon 06-20-2023 Albumin [Mass/Vol] 4.0 g/dL Normal 3.9-4.9 [facility] Comment on above: Order Comment: Speci men Type: BLOOD SPECIMENOrdering Facility: [facility] Address: [address] [place] [address] Performed By: #### 2 4323-8 ####[facility] LABCLIA [id number] [place] [address] ALP [Catalytic activity/Vol] 72 U/L Normal 34-123 [facility] Comment on above: Order Comment: Speci men Type: BLOOD SPECIMENOrdering Facility: [facility] Address: [address] [place] [address] Performed By: #### 2 4323-8 ####[facility] LABCLIA [id number] [place] [address] ALT [Catalytic activity/Vol] 17 U/L Normal 7-38 [facility] Comment on above: Order Comment: Speci men Type: BLOOD SPECIMENOrdering Facility: [facility] Address: [address] [place] [address] Performed By: #### 2 4323-8 ####[facility] LABCLIA [id number] [place] [address] Anion gap [Moles/Vol] 9 mmol/L Normal 9-18 [facility] Comment on above: Order Comment: Speci men Type: BLOOD SPECIMENOrdering Facility: [facility] Address: [address] [place] [address] Performed By: #### 2 4323-8 ####[facility] LABCLIA [id number] [place] [address] AST [Catalytic activity/Vol] 11 U/L Low 13-35 [facility] Comment on above: Order Comment: Speci men Type: BLOOD SPECIMENOrdering Facility: [facility] Address: [address] [place] [address] Performed By: #### 2 4323-8 ####[facility] LABCLIA [id number] [place] [address] Bilirubin [Mass/Vol] 0.2 mg/dL Normal 0.2-1.3 [facility] Comment on above: Order Comment: Speci men Type: BLOOD SPECIMENOrdering Facility: [facility] Address: [address] [place] [address] Performed By: #### 2 4323-8 ####[facility] LABCLIA [id number] [place] [address] Calcium [Mass/Vol] 10.1 mg/dL Normal 8.5-10.2 [facility] Comment on above: Order Comment: Speci men Type: BLOOD SPECIMENOrdering Facility: [facility] Address: [address] [place] [address] Performed By: #### 2 4323-8 ####[facility] LABCLIA [id number] [place] [address] Chloride [Moles/Vol] 103 mmol/L Normal 97-105 [facility] Comment on above: Order Comment: Speci men Type: BLOOD SPECIMENOrdering Facility: [facility] Address: [address] [place] [address] Performed By: #### 2 4323-8 ####[facility] LABCLIA [id number] [place] [address] CO2 [Moles/Vol] 30 mmol/L Normal 22-30 [facility] Comment on above: Order Comment: Speci men Type: BLOOD SPECIMENOrdering Facility: [facility] Address: [address] [place] [address] Performed By: #### 2 4323-8 ####[facility] LABCLIA [id number] [place] [address] Creatinine [Mass/Vol] 1.77 mg/dL High 0.58-0.96 [facility] Comment on above: Order Comment: Speci men Type: BLOOD SPECIMENOrdering Facility: [facility] Address: [address] [place] [address] Performed By: #### 2 4323-8 ####[facility] LABCLIA [id number] [place] [address] Creatinine and Glomerular filtration rate.predicted panel (S/P/Bld) 29 mL/min/1.73m??? Low >=60 [facility] Comment on above: Order Comment: Speci men Type: BLOOD SPECIMENOrdering Facility: [facility] Address: [address] [place] [address] Result Comment: Ramila mated Glomerular Filtration Rate [...] actual GFR. Performed By: #### 2 4323-8 ####[facility] LABIA [id number] [place] [address] Glucose [Mass/Vol] 273 mg/dL High 74-99 [facility] Comment on above: Order Comment: Speci men Type: BLOOD SPECIMENOrdering Facility: [facility] Address: [address] [place] [address] Result Comment: The [place] [employer] (ADA) provides guidance for cutoff [...] Standards of Medical Care in Diabetes 2016, [place] [employer]. Diabetes Care. 2016.39(Suppl 1). Performed By: #### 2 4323-8 ####[facility] LABIA [id number] [place] [address] Potassium [Moles/Vol] 5.1 mmol/L Normal 3.7-5.1 [facility] Comment on above: Order Comment: Speci men Type: BLOOD SPECIMENOrdering Facility: [facility] Address: [address] [place] [address] Performed By: #### 2 4323-8 ####[facility] LABCLIA [id number] [place] [address] Protein [Mass/Vol] 6.4 g/dL Normal 6.3-8.0 [facility] Comment on above: Order Comment: Speci men Type: BLOOD SPECIMENOrdering Facility: [facility] Address: [address] [place] [address] Performed By: #### 2 4323-8 ####[facility] LABCLIA [id number] [place] [address] Sodium [Moles/Vol] 142 mmol/L Normal 136-144 [facility] Comment on above: Order Comment: Speci men Type: BLOOD SPECIMENOrdering Facility: [facility] Address: [address] [place] [address] Performed By: #### 2 4323-8 ####[facility] LABCLIA [id number] [place] [address] Urea nitrogen [Mass/Vol] 40 mg/dL High 7-21 [facility] Comment on above: Order Comment: Speci men Type: BLOOD SPECIMENOrdering Facility: [facility] Address: [address] [place] [address] Performed By: #### 2 4323-8 ####[facility] LABCLIA [id number] [place] [address] Vaginitis DNA Probeon 2022 Manjula Negative Normal NEG [facility] Comment on above: Result Comment: for Manjula sp. Method of testing is a DNA probe intended for detection and identification of Manjula species, Gardnerella vaginalis, and Trichomonas vaginalis nucleic acid in vaginal fluid specimens from patients with symptoms of vaginitis/vaginosis. Performed By: #### V AGP #### [facility] [address] [place] [address] Community Administrator: Fidel Hylton MD Gardnerella Negative Normal NEG [facility] Comment on above: Result Comment: for Gardnerella vaginalis Performed By: #### V AGP #### [place] [address] [place] [address] Community Administrator: iFdel Hylton MD Trichomonas Negative Normal NEG [facility] Comment on above: Result Comment: for Trichomonas Vaginalis Performed By: #### V AGP #### [address] [address] Community Administrator: Fidel Hylton MD Source .VAGINAL SWAB Normal [facility] Comment on above: Performed By: #### V AGP #### [address] [id number] Community Administrator: Fidel Hylton MD OPERATIVE REPORTon OPERATIVE REPORT [address] [address] OPERATIVE REPORT PATIENT NAME: HARMAN MCLEOD : 1940 MED REC NO: [id number] ROOM: ACCOUNT NO: [id number] ADMIT DATE: 03/06/2023 PROVIDER: Emma Garza MD DATE OF PROCEDURE: 03/06/2023 PREOPERATIVE DIAGNOSIS: Recurrent vaginal dysplasia. POSTOPERATIVE DIAGNOSIS: Recurrent vaginal dysplasia. OPERATION PERFORMED: Examination under anesthesia, carbon dioxide laser vaporization of vaginal dysplasia. COMPLICATIONS: None. BLOOD LOSS: Minimal. SURGEON: Emma Garza MD MYSQL DATABASE ADMINISTRATOR: Mauri (resident). DISPOSITION: The patient to recovery room stable. SPECIMENS: No specimen sent to Pathology. OPERATIVE FINDINGS: The patient had a small 1-2 cm area of jybcrfek-ni-ujxaxx dysplasia along the anterior vagina from 12 [...] entire procedure. EMMA GARZA MD CL/S_[email or web address]_01 Doc#: [id number] CC: Normal [facility] Consultation Noteon 02-20-20 Consultation Note [id number]#[id number] 0CD:127 Normal [facility] CBC W Auto Differential pane l (Bld)on 02-14-2023 Basophils (Bld) [#/Vol] 0.04 10*3/uL Normal <0.11 [facility] Comment on above: Order Comment: Speci men Type: BLOOD SPECIMENOrdering Facility: [facility] Address: [address] [place] [address] Performed By: #### 5 7021-8 ####[facility] LABCLIA [id number] [place] [address] Basophils/100 WBC (Bld) 0.4 % Normal [facility] Comment on above: Order Comment: Speci men Type: BLOOD SPECIMENOrdering Facility: [facility] Address: [address] [place] [address] Performed By: #### 5 7021-8 ####[facility] LABCLIA [id number] [place] [address] Differential cell count method Nom (Bld) Auto Normal [facility] Comment on above: Order Comment: Speci men Type: BLOOD SPECIMENOrdering Facility: [facility] Address: [address] [address] Performed By: #### 5 7021-8 ####[facility] LABCLIA [id number] [place] [address] Eosinophils (Bld) [#/Vol] 0.20 10*3/uL Normal <0.46 [facility] Comment on above: Order Comment: Speci men Type: BLOOD SPECIMENOrdering Facility: [facility] Address: [address] [address] Performed By: #### 5 7021-8 ####[facility] LABCLIA [id number] [place] [address] Eosinophils/100 WBC (Bld) 1.9 % Normal [facility] Comment on above: Order Comment: Speci men Type: BLOOD SPECIMENOrdering Facility: [facility] Address: [address] [place] [address] Performed By: #### 5 7021-8 ####[facility] LABCLIA [id number] [place] [address] Erythrocyte distribution width (RBC) [Ratio] 14.1 % Normal 11.5-15.0 [facility] Comment on above: Order Comment: Speci men Type: BLOOD SPECIMENOrdering Facility: [facility] Address: [address] [place] [address] Performed By: #### 5 7021-8 ####[facility] LABCLIA [id number] [place] [address] Hematocrit (Bld) [Volume fraction] 38.4 % Normal 36.0-46.0 [facility] Comment on above: Order Comment: Speci men Type: BLOOD SPECIMENOrdering Facility: [facility] Address: [address] [place] [address] Performed By: #### 5 7021-8 ####[facility] LABCLIA [id number] [place] [address] Hemoglobin (Bld) [Mass/Vol] 12.2 g/dL Normal 11.5-15.5 [facility] Comment on above: Order Comment: Speci men Type: BLOOD SPECIMENOrdering Facility: [facility] Address: [address] [place] [address] Performed By: #### 5 7021-8 ####[facility] LABCLIA [id number] [place] [address] Immature granulocytes (Bld) [#/Vol] 0.06 10*3/uL Normal <0.10 [facility] Comment on above: Order Comment: Speci men Type: BLOOD SPECIMENOrdering Facility: [facility] Address: [address] [place] [address] Performed By: #### 5 7021-8 ####[facility] LABCLIA [id number] [place] [address] Immature granulocytes/100 WBC (Bld) 0.6 % Normal [facility] Comment on above: Order Comment: Speci men Type: BLOOD SPECIMENOrdering Facility: [facility] Address: [address] [address] Performed By: #### 5 7021-8 ####[facility] LABCLIA [id number] [place] [address] Lymphocytes (Bld) [#/Vol] 2.56 10*3/uL Normal 1.00-4.00 [facility] Comment on above: Order Comment: Speci men Type: BLOOD SPECIMENOrdering Facility: [facility] Address: [address] [address] Performed By: #### 5 7021-8 ####[facility] LABCLIA [id number] [place] [address] Lymphocytes/100 WBC (Bld) 24.6 % Normal [facility] Comment on above: Order Comment: Speci men Type: BLOOD SPECIMENOrdering Facility: [facility] Address: [address] [place] [address] Performed By: #### 5 7021-8 ####[facility] LABCLIA [id number] [place] [address] MCH (RBC) [Entitic mass] 30.0 pg Normal 26.0-34.0 [facility] Comment on above: Order Comment: Speci men Type: BLOOD SPECIMENOrdering Facility: [facility] Address: [address] [place] [address] Performed By: #### 5 7021-8 ####[facility] LABCLIA [id number] [place] [address] MCHC (RBC) [Mass/Vol] 31.8 g/dL Normal 30.5-36.0 [facility] Comment on above: Order Comment: Speci men Type: BLOOD SPECIMENOrdering Facility: [facility] Address: [address] [place] [address] Performed By: #### 5 7021-8 ####[facility] LABIA [id number] [place] [address] MCV (RBC) [Entitic vol] 94.3 fL Normal 80.0-100.0 [facility] Comment on above: Order Comment: Speci men Type: BLOOD SPECIMENOrdering Facility: [facility] Address: [address] [place] [address] Performed By: #### 5 7021-8 ####[facility] LABCLIA [id number] [place] [address] Monocytes (Bld) [#/Vol] 0.86 10*3/uL Normal <0.87 [facility] Comment on above: Order Comment: Speci men Type: BLOOD SPECIMENOrdering Facility: [facility] Address: [address] [place] [address] Performed By: #### 5 7021-8 ####[facility] LABCLIA [id number] [place] [address] Monocytes/100 WBC (Bld) 8.3 % Normal [facility] Comment on above: Order Comment: Speci men Type: BLOOD SPECIMENOrdering Facility: [facility] Address: [address] [address] Performed By: #### 5 7021-8 ####[facility] LABCLIA [id number] [place] [address] Neutrophils (Bld) [#/Vol] 6.69 10*3/uL Normal 1.45-7.50 [facility] Comment on above: Order Comment: Speci men Type: BLOOD SPECIMENOrdering Facility: [facility] Address: [address] [address] Performed By: #### 5 7021-8 ####[facility] LABCLIA [id number] [place] [address] Neutrophils/100 WBC (Bld) 64.2 % Normal [facility] Comment on above: Order Comment: Speci men Type: BLOOD SPECIMENOrdering Facility: [facility] Address: [address] [address] Performed By: #### 5 7021-8 ####[facility] LABCLIA [id number] [place] [address] Nucleated RBC (Bld) [#/Vol] 10*3/uL Normal <0.01 [facility] Comment on above: Order Comment: Speci men Type: BLOOD SPECIMENOrdering Facility: [facility] Address: [address] [place] [address] Performed By: #### 5 7021-8 ####[facility] LABCLIA [id number] [place] [address] Nucleated RBC/100 WBC (Bld) [Ratio] 0.0 /100 WBC Normal [facility] Comment on above: Order Comment: Speci men Type: BLOOD SPECIMENOrdering Facility: [facility] Address: [address] [place] [address] Performed By: #### 5 7021-8 ####[facility] LABCLIA [id number] [place] [address] Platelet mean volume (Bld) [Entitic vol] 9.6 fL Normal 9.0-12.7 [facility] Comment on above: Order Comment: Speci men Type: BLOOD SPECIMENOrdering Facility: [facility] Address: [address] [place] [address] Performed By: #### 5 7021-8 ####[facility] LABIA [id number] [place] [address] Platelets (Bld) [#/Vol] 271 10*3/uL Normal 150-400 [facility] Comment on above: Order Comment: Speci men Type: BLOOD SPECIMENOrdering Facility: [facility] Address: [address] [place] [address] Performed By: #### 5 7021-8 ####[facility] [id number] [place] [address] RBC (Bld) [#/Vol] 4.07 10*6/uL Normal 3.90-5.20 [facility] Comment on above: Order Comment: Speci men Type: BLOOD SPECIMENOrdering Facility: [facility] Address: [address] [place] [address] Performed By: #### 5 7021-8 ####[facility] [id number] [place] [address] WBC (Bld) [#/Vol] 10.41 10*3/uL Normal 3.70-11.00 [facility] Comment on above: Order Comment: Speci men Type: BLOOD SPECIMENOrdering Facility: [facility] Address: [address] [place] [address] Performed By: #### 5 7021-8 ####[facility] [id number] [place] [address] CNOVSPon 02-14-2023 CNOVSP Visit (SP) Office (HEMASA) HARMAN MCLEOD ([id number]) 1940 F Date Time Provider Department 02/14/23 10:30 AM [facility] STONE During your visit today, we recorded the following information about you: Temperature Pulse Respiration Blood pressure 97.4 degrees 102/minute 16/minute 151/90 Weight Height 84.5 kg 1.549 m Wallace Stone MD 02/14/2023 10:49 AM Signed PATIENT NAME: Harman Mcleod CLINIC NO.: [id number] ATTENDING PHYSICIAN: Wallace Stone MD DATE OF [...] (more content not included)... Normal [facility] CNPNon 02-14-2023 CNPN Telephone (NCCAP) HARMAN MCLEOD ([id number]) 1940 F Date Time Provider Department 02/14/23 [facility] STONE [facility] During your visit today, we recorded the following information about you: Angelica Garrett 02/14/2023 11:00 AM Signed Please ref to [facility] for Consult dx eczema They will call the patient to schedule after review of records. Janeth, Please fax records Dudley, Please check on this appt. Kira Ko [facility] 02/14/2023 1:14 PM Signed Records faxed to [facility]. Adriana Pereira Pss 02/22/2023 8:35 AM Signed Called [facility] office spoke with Coco. She states they [...] daily at bedtime. Cut in half - Huxrp-8-SGG-EPA-Fish Oil 1,000 mg (120 mg-180 mg) cap Take 2 g by mouth twice daily. - isosorbide mononitrate ER (IMDUR) 60 mg 24 hr tablet Take 60 mg by mouth twice daily. Problem List As Of Date 02/14/2023 Noted Resolved Hypertension [I10] DM type 2 (diabetes mellitus, type 2) ([facility]) [E1* Essential hypertension [I10] 01/16/2017 Type 2 diabetes mellitus without complication, *01/16/2017 Hypothyroidism [E03.9] 01/16/2017 Dyslipidemia [E78.5] 01/16/2017 Atherosclerosis of ak chin coronary artery of na*01/16/2017 S/P coronary artery stent placement [Z95.5] 01/16/2017 Moderate smoker (20 or less per day) [F17.210] 01/16/2017 PAD (peripheral artery disease) ([facility]) [I73.9] 01/16/2017 Vaginal lesion [N89.8] 01/20/2017 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 Stage 3a chronic kidney disease (HCC) [N18.31] 02/14/2023 Encounter Status:Closed by ANGELICA MILLAN on 02/28/23 Normal [facility] Comprehensive metabolic 2000 panelon 02-14-2023 Albumin [Mass/Vol] 4.1 g/dL Normal 3.9-4.9 [facility] Comment on above: Order Comment: Speci men Type: BLOOD SPECIMENOrdering Facility: [facility] Address: [address] [place] [address] Performed By: #### 2 4323-8 ####[facility] LABCLIA [id number] [place] [address] ALP [Catalytic activity/Vol] 106 U/L Normal 34-123 [facility] Comment on above: Order Comment: Speci men Type: BLOOD SPECIMENOrdering Facility: [facility] Address: [address] [place] [address] Performed By: #### 2 4323-8 ####[facility] LABCLIA [id number] [place] [address] ALT [Catalytic activity/Vol] 14 U/L Normal 7-38 [facility] Comment on above: Order Comment: Speci men Type: BLOOD SPECIMENOrdering Facility: [facility] Address: [address] [place] [address] Performed By: #### 2 4323-8 ####[facility] LABCLIA [id number] [place] [address] Anion gap [Moles/Vol] 11 mmol/L Normal 9-18 [facility] Comment on above: Order Comment: Speci men Type: BLOOD SPECIMENOrdering Facility: [facility] Address: [address] [place] [address] Performed By: #### 2 4323-8 ####[facility] LABIA [id number] [place] [address] AST [Catalytic activity/Vol] 11 U/L Low 13-35 [facility] Comment on above: Order Comment: Speci men Type: BLOOD SPECIMENOrdering Facility: [facility] Address: [address] [address] Performed By: #### 2 4323-8 ####[facility] LABCLIA [id number] [place] [address] Bilirubin [Mass/Vol] 0.3 mg/dL Normal 0.2-1.3 [facility] Comment on above: Order Comment: Speci men Type: BLOOD SPECIMENOrdering Facility: [facility] Address: [address] [address] Performed By: #### 2 4323-8 ####[facility] LABCLIA [id number] [place] [address] Calcium [Mass/Vol] 10.2 mg/dL Normal 8.5-10.2 [facility] Comment on above: Order Comment: Speci men Type: BLOOD SPECIMENOrdering Facility: [facility] Address: [address] [place] [address] Performed By: #### 2 4323-8 ####[facility] LABCLIA [id number] [place] [address] Chloride [Moles/Vol] 98 mmol/L Normal 97-105 [facility] Comment on above: Order Comment: Speci men Type: BLOOD SPECIMENOrdering Facility: [facility] Address: [address] [place] [address] Performed By: #### 2 4323-8 ####[facility] LABCLIA [id number] [place] [address] CO2 [Moles/Vol] 31 mmol/L High 22-30 [facility] Comment on above: Order Comment: Speci men Type: BLOOD SPECIMENOrdering Facility: [facility] Address: [address] [place] [address] Performed By: #### 2 4323-8 ####[facility] LABCLIA [id number] [place] [address] Creatinine [Mass/Vol] 1.25 mg/dL High 0.58-0.96 [facility] Comment on above: Order Comment: Dimple de santiago Type: BLOOD SPECIMENOrdering Facility: [facility] Address: [address] [phone] Performed By: #### 2 4323-8 ####[facility] LABCLIA [id number] [place] [address] ESTIMATED GLOMERULAR FILTRATION RATE 44 mL/min/1.73m??? Low >=60 [facility] Comment on above: Order Comment: Dimple anyi Type: BLOOD SPECIMENOrdering Facility: [facility] Address: [address] [address] Result Comment: Ramila mated Glomerular Filtration Rate [...] actual GFR. Performed By: #### 2 4323-8 ####[facility] LABCLIA [id number] [place] [address] Glucose [Mass/Vol] 285 mg/dL High 74-99 [facility] Comment on above: Order Comment: Dimple anyi Type: BLOOD SPECIMENOrdering Facility: [facility] Address: [address] [address] Result Comment: The [place] [employer] (ADA) provides guidance for cutoff [...] Standards of Medical Care in Diabetes 2016, [place] [employer]. Diabetes Care. 2016.39(Suppl 1). Performed By: #### 2 4323-8 ####[facility] LABCLIA [id number] [place] [address] Potassium [Moles/Vol] 3.7 mmol/L Normal 3.7-5.1 [facility] Comment on above: Order Comment: Speci men Type: BLOOD SPECIMENOrdering Facility: [facility] Address: [address] [place] [address] Performed By: #### 2 4323-8 ####[facility] LABCLIA [id number] [place] [address] Protein [Mass/Vol] 7.3 g/dL Normal 6.3-8.0 [facility] Comment on above: Order Comment: Speci men Type: BLOOD SPECIMENOrdering Facility: [facility] Address: [address] [place] [address] Performed By: #### 2 4323-8 ####[facility] LABCLIA [id number] [place] [address] Sodium [Moles/Vol] 140 mmol/L Normal 136-144 [facility] Comment on above: Order Comment: Speci men Type: BLOOD SPECIMENOrdering Facility: [facility] Address: [address] [place] [address] Performed By: #### 2 4323-8 ####[facility] LABCLIA [id number] [place] [address] Urea nitrogen [Mass/Vol] 33 mg/dL High 7-21 [facility] Comment on above: Order Comment: Speci men Type: BLOOD SPECIMENOrdering Facility: [facility] Address: [address] [place] [address] Performed By: #### 2 4323-8 ####[facility] LABCLIA [id number] [place] [address] Consultation Noteon 06-06-20 23 Consultation Note [id number]#1.0 0CD:127 Normal [facility] Comment on above: Other Comment: TRACEY RUTH CRR CULTURE URINEon 01-19-2023 CULTURE URINE Culture Observations : VERY LIGHT GROWTH OF MIXED GENITAL SAGE. NO POTENTIAL PATHOGENS SEEN. Normal [facility] Comment on above: Performed By: #### U RCX ####[facility] [address] [address]Dr. Omid Bowden UA RANDOM W/MICROSCOPICon BACTERIA TRACE Abnormal NONE SEEN [facility] Comment on above: Performed By: #### H GB #### [facility] [address] [place] [address] Dr. Omid Bowden Bilirubin Ql (U) Negative Normal NEGATIVE [facility] Comment on above: Performed By: #### H GB #### [facility] [address] [place] [address] Dr. Omid Bowden CAST NONE SEEN Normal NONE SEEN [facility] Comment on above: Performed By: #### H GB #### [facility] [address] [place] [address] Dr. Omid Bowden Clarity (U) CLEAR Normal CLEAR [facility] Comment on above: Performed By: #### H GB #### [facility] [address] [place] [address] Dr. Omid Bowden Color (U) LT. YELLOW Normal YELLOW [facility] Comment on above: Performed By: #### H GB #### [facility] [address] [place] [address] Dr. Omid Bowden Crystals LM Nom (Urine sed) NONE SEEN Normal NONE SEEN [facility] Comment on above: Performed By: #### H GB #### [facility] [address] [place] [address] Dr. Omid Bowden Epithelial cells LM Ql (Urine sed) RARE Normal NONE SEEN /RARE [facility] Comment on above: Performed By: #### H GB #### [facility] [address] [place] [address] Dr. Omid Bowden Glucose Ql (U) Negative Normal NEGATIVE [facility] Comment on above: Performed By: #### H GB #### [facility] [address] [address] [address] Omid Bowden Hemoglobin Ql (U) Negative Normal NEGATIVE [facility] Comment on above: Performed By: #### H GB #### [facility] [address] [place] [address] Dr. Omid Bowden Ketones Ql (U) Negative Normal NEGATIVE [facility] Comment on above: Performed By: #### H GB #### [facility] [address] [address] [address] Omid Bowden LEUKOCYTES SMALL Abnormal NEGATIVE [facility] Comment on above: Performed By: #### H GB #### [facility] [address] [place] [address] Dr. Omid Bowden MUCOUS NONE SEEN Normal NONE SEEN [facility] Comment on above: Performed By: #### H GB #### [facility] [address] [place] [address] Dr. Omid Bowden Nitrite Ql (U) Negative Normal NEGATIVE [facility] Comment on above: Performed By: #### H GB #### [facility] [address] [place] [address] Dr. Omid Bowden pH (U) 6.0 [pH] Normal 5-9 [facility] Comment on above: Performed By: #### H GB #### [facility] [address] [place] [address] Dr. Omid Bowden RBC 0-2 Normal 0-2 [facility] Comment on above: Performed By: #### H GB #### [facility] [address] [place] [address] Dr. Omid Bowden SPEC GRAVITY <=1.005 Abnormal 1.005-<=1.0 25 [facility] Comment on above: Performed By: #### H GB #### [facility] [address] [place] [address] Dr. Omid Bowden UA PROTEIN Negative Normal NEGATIVE/ TRACE [facility] Comment on above: Performed By: #### H GB #### [facility] [address] [address] [address] Omid Bowden Urobilinogen Qn (U) 0.2 {Jose'U}/dL Normal 0.2 - 1. 0 [facility] Comment on above: Performed By: #### H GB #### [facility] [address] [address] [address] Omid Bowden WBC 0-2 Abnormal NONE SEEN [facility] Comment on above: Performed By: #### H GB #### [facility] [address] [address] [address] Omid Bowden Creatinine [Mass/volume] in Serum or PlasmaOrdered By: Christiano Gonzlaes on 11-29-2022 Creatinine [Mass/Vol] 1.37 mg/dL 0.60-1.20 [facility] - Chemistry and C hemistry - challengeOrdered By: Christiano Gonzales on 11-29-2022 GFR/1.73 sq M.predicted MDRD (S/P/Bld) [Vol rate/Area] 39.034 mL/min/{1.73_m2} [facility] No Panel InformationOrdered By: Christiano Gonzales on 11-29-2022 Pharmacy Creatinine Clearance (Chem 31.71 [facility] Urea nitrogen [Mass/volume] in Serum or PlasmaOrdered By: Christiano Gonzales on 11-29-2022 Urea nitrogen [Mass/Vol] 35 mg/dL 7-25 [facility] Surgical Pathologyon 023 Surgical Pathology (NOTE) [...] CONSULTATION Patient Name: HARMAN MCLEOD Med Rec: [id number] Path Number: [id number] [facility] ANATOM[facility] PATHOLOG[facility] [address] [place], [place] [address] Normal [facility] Comment on above: Performed By: #### P PPVS #### [facility] [address] [place] [id number] Community Administrator: Fidel Hylton MD Ambulatory Visit Summaryon 0 11-22-2022 Ambulatory Visit Summary HARMAN MCLEOD :1940 Visit Date:11/22/2022 Ambulatory Visit Instructions Your Care Team Attending Physician - CHELSI CARDONA, Iliana Ramirez Primary Care Physician - aHyden CARDONA, Mateus This Is Your Medications List [...] and diastolic (congestive) heart failure Atherosclerosis of ak chin artery of extremity BMI 36.0-36.9,adult Brain stem [...] DANIEL Jose Only if needed 34 [place] [employer] [place] [address]- Additional Instructions: Problem List/Past Medical History Ongoing 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 Normal [facility] Comment on above: Result Comment: Elec tronically Signed By: CHELSI CARDONA, Iliana Ramirez\jazmine\Date and Time Signed: 11/22/22 15:17 EDT Covid-19 PCR (CVDTB)on SARS-CoV-2 (COVID-19) RNA MARII+probe Ql (Unsp spec) Not detected Normal NOT DETECTED [facility] Comment on above: Result Comment: When [...] for this test is supported by the [place] of Health and Human Service's declaration that [...] used). Performed By: #### H GB #### [facility] [address] [address] [address] Omid Bowden INFLUENZA A AND B AGon 11-16 [facility] SEE BELOW Normal [facility] Comment on above: Result Comment: Nega tive for Flu A protein angiten. Infection due to Flu A cannot be ruled out. Flu A angiten in the sample may be below the detection limit of the test. Performed By: #### I NFLUAB ####[facility] [address] [place], [place] [address]Dr. Omid Bowden INFLUBNEG SEE BELOW Normal [facility] Comment on above: Result Comment: Nega tive for Flu B protein antigen. Infection due to Flu B cannot be ruled out. Flu B antigen in the sample may be below the detection limit of the test. Performed By: #### I NFLUAB ####[facility] [address] [place], [place] [address]Dr. Omid Bowden INFLUENZA A AG Negative Normal NEGATIVE SEE COMMENT [facility] Comment on above: Performed By: #### I NFLUAB ####[facility] [address] [place], [place] [address]DrMedardo Bowden INFLUENZA B AG Negative Normal NEGATIVE SEE COMMENT [facility] Comment on above: Performed By: #### I NFLUAB ####[facility] [address] [place], [place] [address]Dr. Omid Bowden CNOVSPon 11-09-2022 CNOVSP [facility] HARMAN MCLEOD ([id number]) 1940 F Date Time Provider Department 11/09/22 2:00 PM WALLACE STONE During your visit today, we recorded the following information about you: Temperature Pulse Respiration Blood pressure 97.1 degrees 66/minute 18/minute 142/72 Weight Height 84.7 kg 1.549 m Wallace Stone MD 11/09/2022 2:24 PM Signed PATIENT NAME: Harman Mcleod CLINIC NO.: [id number] ATTENDING PHYSICIAN: Wallace Stone MD DATE OF [...] LABS: Gluc (more content not included)... Normal [facility] CNPNon 11-09-2022 CNPN Telephone (NCCAP) HARMAN MCLEOD ([id number]) 1940 F Date Time Provider Department 11/09/22 WALLACE STONE NCCAP During your visit today, we recorded the following information about you: Carlos Brooks 11/09/2022 2:45 PM Signed Vascular Consult [facility] Previous patient of Dr. Mendez 3 years or more. Janeth/Dudley: Can you please refer patient and follow up? Thanks! Carlos Pereira [facility] 11/10/2022 8:46 AM Signed Janeth: Information ready for you. Adriana Pereira [facility] Kira Ko [facility] 11/10/2022 9:38 AM Signed Records faxed. Adriana [...] Fully Assessed Reason for Visit: Referral Information [4655] Cmt: Vascular Consult Prescriptions as of 11/16/2022 [...] daily at bedtime. Cut in half - Vghtz-5-RBH-EPA-Fish Oil 1,000 mg (120 mg-180 mg) cap Take 2 g by mouth twice daily. - isosorbide mononitrate ER (IMDUR) 60 mg 24 hr tablet Take 60 mg by mouth twice daily. Problem List As Of Date 11/09/2022 Noted Resolved Hypertension [I10] DM type 2 (diabetes mellitus, type 2) ([facility]) [E1* Essential hypertension [I10] 01/16/2017 Type 2 diabetes mellitus without complication, *01/16/2017 Hypothyroidism [E03.9] 01/16/2017 Dyslipidemia [E78.5] 01/16/2017 Atherosclerosis of ak chin coronary artery of na*01/16/2017 S/P coronary artery stent placement [Z95.5] 01/16/2017 Moderate smoker (20 or less per day) [F17.210] 01/16/2017 PAD (peripheral artery disease) ([facility]) [I73.9] 01/16/2017 Vaginal lesion [N89.8] 01/20/2017 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 Normal [facility] Comment on above: Result [...] Where: General Surgery Chelsi/Angelita Israel Normal [facility] And [...] and diastolic (congestive) heart failure Atherosclerosis of ak chin artery of extremity BMI 36.0-36.9,adult Brain stem [...] Family Histor (more content not included)... Normal [facility] Comment on above: Result [...] by: MIGUELITO TELLEZ Date: 2022-11-02 17:17 Normal [facility] Pathology Noteon 10-26-2022 Pathology Note [id number]#1.0 0CD:127 Normal [facility] Ambulatory Visit Summaryon 0 [...] MD Where: General Surgery Chelsi/Angelita Lindy Victor [facility] General Surgery Office/Clini c [...] and diastolic (congestive) heart failure Atherosclerosis of ak chin artery of extremity BMI 36.0-36.9,adult Brain stem [...] disease: Mo (more content not included)... Normal [facility] Comment on above: Result Comment: Elec tronically Signed By: CHELSI CARDONA, Iliana Alvarez\Date and Time Signed: 10/25/22 16:13 EST Operative Reporton 3 Operative Report [id number] 0CD:127 Normal [facility] RAD - Ultrasound Reporton RAD - Ultrasound Report [id number]#1.0 0CD:127 Normal [facility] NM SENTNL NODEon 10-19-2022 VA SENT NODE NUCLEAR MEDICINE LYMPHOSCINTIGRAPHY. HISTORY: Infiltrating [...] by: KRISTIN JAQUEZ Date: 2022-10-19 10:41 Normal [facility] POINT OF CARE GLUCOSEon 02- Glucose [Mass/Vol] 153 mg/dL Critically high 74-106 T [facility] Comment on above: Performed By: #### P OCGLUC #### [facility] [address] [address] [address] Omid Bowden RAD - MISCon 10-19-2022 RAD - MISC [id number] 20 [id number]#1.0 0CD:127 Normal [facility] RAD - MISC [id number] 0CD:127 Normal [facility] RAD - Ultrasound Reporton RAD - Ultrasound Report [id number] 0CD:127 Normal [facility] RAD - Ultrasound Report [id number] 0CD:127 Normal [facility] US BREAST SPECIMENon 023 US BREAST SPECIMEN Patient: HARMAN MCLEOD Exam Date: 10/19/2022 : 1940 Gender:F Ordering : DR IILANA GAGNON . Admission #: [id number] Family : Order #: [id number] CLICK HERE TO VIEW EXAM RADIOLOGY REPORT PROCEDURE: US BREAST SPECIMEN COMPARISON: None. INDICATIONS: Specimen from breast FINDINGS: Breast specimen demonstrates inclusion of the targeted mass as well as the micro clip marker CONCLUSION: Targeted mass and micro clip marker included within the specimen Dictated by: Judson Bauman MD on 10/19/2022 at 11:46 Approved by: Judson Bauman MD on 10/19/2022 at 11:47 Normal [facility] US GUIDE LOCAL BREAST RTon 0 10-19-2022 US GUIDE LOCAL BREAST RT Patient: HARMAN MCLEOD Refugio Exam Date: 10/19/2022 : 1940 Gender:F Ordering : DR ILIANA GAGNON . Admission #: [id number] Family : Order #: [id number] CLICK HERE TO VIEW EXAM RADIOLOGY REPORT [...] clip marker LOCATION: Right breast 9 NEEDLE: [employer] spring hook; 20 g by 5 cm needle and wire. MEDICATION: 6 cubic cm Superficial and deep buffered 1% lidocaine. COMPLICATIONS: None. CONCLUSION: Technically successful hookwire localization. Dictated by: Judson Bauman MD on 10/19/2022 at 09:04 Approved by: Judson Bauman MD on 10/19/2022 at 09:05 Normal [facility] US SENTINEL NODEon US SENTINEL NODE EXAM: [...] by: JUDSON BAUMAN Date: 2022-10-19 08:59 Normal [facility] RAD - MISCon 10-17-2022 RAD - MISC [id number]#1.0 0CD:127 Normal [facility] CBC AUTO DIFFon 10-11-2022 BASO # 0.0 103/ul Normal 0.0-0.1 [facility] Comment on above: Performed By: #### H GB #### [facility] [address] [place] [address] Dr. Omid Bowden Basophils/100 WBC (Bld) 0.2 % Normal 0.2-2.0 [facility] Comment on above: Performed By: #### H GB #### [facility] [address] [place] [address] Dr. Omid Bowden EO # 0.0 103/ul Normal 0.0-0.7 [facility] Comment on above: Performed By: #### H GB #### [facility] [address] [place] [address] Dr. Omid Bowden Eosinophils/100 WBC (Bld) 0.3 % Critically low 0.9-7.0 [facility] Comment on above: Performed By: #### H GB #### [facility] [address] [place] [address] Dr. Omid Bowden Erythrocyte distribution width (RBC) [Ratio] 13.7 % Normal 11.0-15.0 [facility] Comment on above: Performed By: #### H GB #### [facility] [address] [place] [address] Dr. Omid Bowden Hematocrit (Bld) [Volume fraction] 39.6 % Normal 36.0-48.0 [facility] Comment on above: Performed By: #### H GB #### [facility] [address] [place] [address] Dr. Omid Bowden Hemoglobin (Bld) [Mass/Vol] 12.3 g/dL Normal 12.0-16.0 [facility] Comment on above: Performed By: #### H GB #### [facility] [address] [place] [address] Dr. Omid Bowden IG # 0.06 10e3/ul Critically high 0.00-0.03 [facility] Comment on above: Performed By: #### H GB #### [facility] [address] [place] [address] Dr. Omid Bowden IG % 0.5 % Normal 0.0-0.5 [facility] Comment on above: Performed By: #### H GB #### [facility] [address] [place] [address] Dr. Omid Bowden LYMPH # 2.9 103/ul Normal 1.2-3.8 [facility] Comment on above: Performed By: #### H GB #### [facility] [address] [place] [address] Dr. Omid Bowden Lymphocytes/100 WBC (Bld) 26.2 % Normal 20.5-60.0 [facility] Comment on above: Performed By: #### H GB #### [facility] [address] [place] [address] Dr. Omid Bowden MANUAL DIFF REQ NO Normal [facility] Comment on above: Performed By: #### H GB #### [facility] [address] [place] [address] Dr. Omid Bowden MCH (RBC) [Entitic mass] 28.3 pg Normal 26.7-34.0 [facility] Comment on above: Performed By: #### H GB #### [facility] [address] [place] [address] Dr. Omid Bowden MCHC (RBC) [Mass/Vol] 31.1 g/dL Normal 29.9-35.2 [facility] Comment on above: Performed By: #### H GB #### [facility] [address] [place] [address] Dr. Omid Bowden MCV (RBC) [Entitic vol] 91.2 fL Normal 81.0-99.0 [facility] Comment on above: Performed By: #### H GB #### [facility] [address] [place] [address] Dr. Omid Bowden MONO # 0.9 103/ul Critically high 0.3-0.8 [facility] Comment on above: Performed By: #### H GB #### [facility] [address] [place] [address] Dr. Omid Bowden Monocytes/100 WBC (Bld) 8.3 % Normal 1.7-12.0 [facility] Comment on above: Performed By: #### H GB #### [facility] [address] [place] [address] Dr. Omid Bowden NEUT # 7.0 103/ul Critically high 1.4-6.5 [facility] Comment on above: Performed By: #### H GB #### [facility] [address] [place] [address] Dr. Omid Bowden Neutrophils/100 WBC (Bld) 64.5 % Normal 43.0-75.0 [facility] Comment on above: Performed By: #### H GB #### [facility] [address] [place] [address] Dr. Omid Bowden Platelet mean volume (Bld) [Entitic vol] 9.2 fL Critically low 9.5-13.5 [facility] Comment on above: Performed By: #### H GB #### [facility] [address] [place] [address] Dr. Omid Bowden PLT 346 103/ul Normal 150-450 [facility] Comment on above: Performed By: #### H GB #### [facility] [address] [place] [address] Dr. Omid Bowden RBC 4.34 106/ul Normal 4.20-5.40 [facility] Comment on above: Performed By: #### H GB #### [facility] [address] [place] [address] Dr. Omid Bowden WBC 10.9 103/ul Normal 4.0-11.0 [facility] Comment on above: Performed By: #### H GB #### [facility] [address] [place] [address] Dr. Omid Bowden PROF CHEM 8 (BAS METB)on Anion gap [Moles/Vol] 11.0 mmol/L Normal [facility] Comment on above: Performed By: #### L IPID, BMP #### [facility] [address] [place] [address] Dr. Omid Bowden Calcium [Mass/Vol] 9.6 mg/dL Normal 8.5-10.1 [facility] Comment on above: Performed By: #### L IPID, BMP #### [facility] [address] [place] [address] Dr. Omid Bowden Chloride [Moles/Vol] 99 mmol/L Normal 98-107 [facility] Comment on above: Performed By: #### L IPID, BMP #### [facility] [address] [place] [address] Dr. Omid Bowden CO2 [Moles/Vol] 32.0 mmol/L Normal 21.0-32.0 [facility] Comment on above: Performed By: #### L IPID, BMP #### [facility] [address] [address] [address] Omid Bowden Creatinine [Mass/Vol] 1.03 mg/dL Critically high 0.55-1.02 [facility] Comment on above: Performed By: #### L IPID, BMP #### [facility] [address] [address] [address] Omid Bowden EGFR-AF TUNISIAN >60 Normal >=60 [facility] Comment on above: Performed By: #### L IPID, BMP #### [facility] [address] [place] [address] Dr. Omid Bowden EGFR-NON AF TUNISIAN 52 mL/min/1.73m2 Critically low >=60 [facility] Comment on above: Performed By: #### L IPID, BMP #### [facility] [address] [address] [address] Omid Bowden Glucose [Mass/Vol] 94 mg/dL Normal 74-106 [facility] Comment on above: Performed By: #### L IPID, BMP #### [facility] [address] [place] [address] Dr. Omid Bowden Potassium [Moles/Vol] 4.0 mmol/L Normal 3.5-5.1 [facility] Comment on above: Performed By: #### L IPID, BMP #### [facility] [address] [address] [address] Omid Bowden Sodium [Moles/Vol] 138 mmol/L Normal 136-145 [facility] Comment on above: Performed By: #### L IPID, BMP #### [facility] [address] [address] [address] Omid Bowden Urea nitrogen [Mass/Vol] 28.0 mg/dL Critically high 7.0-18.0 [facility] Comment on above: Performed By: #### L IPID, BMP #### [facility] [address] [address] [address] Omid Bowden Urea nitrogen/Creatinine [Mass ratio] 27.2 mg/mg Normal [facility] Comment on above: Performed By: #### L IPID, BMP #### [facility] [address] [place] [address] Dr. Omid Bowden PROTIMEon 10-11-2022 INR Coag (PPP) [Relative time] 0.99 {INR} Normal [facility] Comment on above: Performed By: #### H GB #### [facility] [address] [place] [address] Dr. Omid Bowden INR GUIDELINES SEE BELOW Normal [facility] Comment on above: Result Comment: PERLITA RED INR: 2.0 - 3.0 CONDITIONS NOT LISTED BELOW 2.5 - 3.5 FOR PROSTHETIC HEART VALVE REPLACEMENT 2.5 - 3.5 RECURRENT THROMBOSIS Performed By: #### H GB #### [facility] [address] [place] [address] Dr. Omid Bowden PT Coag (PPP) [Time] 10.5 s Normal 9.0-11.6 [facility] Comment on above: Performed By: #### H GB #### [facility] [address] [place] [address] Dr. Omid Bowden PTTon 10-11-2022 aPTT Coag (Bld) [Time] 28.6 s Normal 22.3-36.2 [facility] Comment on above: Performed By: #### H GB #### [facility] [address] [place] [address] Dr. Omid Bowden Consultation Noteon 10-06-19 23 Consultation Note [id number]#1.0 0CD:127 Normal [facility] INSULINon 10-01-2022 Insulin 22.8 uIU/mL Normal 2.6-24.9 [facility] Comment on above: Performed By: #### L IPID, BMP #### [facility] [address] [place] [address] Dr. Omid Bowden GLYCOHEMOGLOBIN A1Con 2022 ADA RECOMMENDATION SEE BELOW Normal [facility] Comment on above: Result Comment: ADA RECOMMENDED LIMIT 4.0 - 6.0 ADA THERAPEUTIC TARGET < 7.0 ACTION SUGGESTED > 7.0 Performed By: #### H GB #### [facility] [address] [address] [address] Omid Bowden Glucose [Mass/Vol] 177 mg/dL Normal [facility] Comment on above: Performed By: #### H GB #### [facility] [address] [address] [address] Omid Bowden HbA1c (Bld) [Mass fraction] 7.8 % Critically high 4.5-6.2 [facility] Comment on above: Performed By: #### H GB #### [facility] [address] [address] [address] Omid Bowden PROF 14(COMP METB)on 023 Albumin [Mass/Vol] 3.0 g/dL Critically low 3.4-5.0 [facility] Comment on above: Performed By: #### C MP ####[facility] [address] [address]DrMedardo Bowden Albumin/Globulin [Mass ratio] 0.7 {ratio} Normal [facility] Comment on above: Performed By: #### C MP ####[facility] [address] [address]DrMedardo Bowden ALP [Catalytic activity/Vol] 73 U/L Normal 46-116 [facility] Comment on above: Performed By: #### C MP ####[facility] [address] [address]DrMedardo Bowden ALT [Catalytic activity/Vol] 16 U/L Normal 14-59 [facility] Comment on above: Performed By: #### C MP ####[facility] [address] [address]DrMedardo Bowden Anion gap [Moles/Vol] 11.3 mmol/L Normal [facility] Comment on above: Performed By: #### C MP ####[facility] [address] [address]DrMedardo Bowden AST [Catalytic activity/Vol] 14 U/L Critically low 15-37 [facility] Comment on above: Performed By: #### C MP ####[facility] [address] [address]Dr. Omid Bowden Bilirubin [Mass/Vol] 0.3 mg/dL Normal 0.2-1.0 [facility] Comment on above: Performed By: #### C MP ####[facility] [address] [place], [place] [address]Dr. Omid Bowden Calcium [Mass/Vol] 9.5 mg/dL Normal 8.5-10.1 [facility] Comment on above: Performed By: #### C MP ####[facility] [address] [place], [place] [address]Dr. Omid Bowden Chloride [Moles/Vol] 102 mmol/L Normal 98-107 [facility] Comment on above: Performed By: #### C MP ####[facility] [address] [place], [place] [address]Dr. Omid Bowden CO2 [Moles/Vol] 31.1 mmol/L Normal 21.0-32.0 [facility] Comment on above: Performed By: #### C MP ####[facility] [address] [place], [place] [address]Dr. Omid Bowden Creatinine [Mass/Vol] 1.28 mg/dL Critically high 0.55-1.02 [facility] Comment on above: Performed By: #### C MP ####[facility] [address] [place], [place] [address]Dr. Omid Kal EGFR-AF TUNISIAN 49 mL/min/1.73m2 Critically low >=60 [facility] Comment on above: Performed By: #### C MP ####[facility] [address] [place], [place] [address]Dr. Omid Kal EGFR-NON AF TUNISIAN 40 mL/min/1.73m2 Critically low >=60 [facility] Comment on above: Performed By: #### C MP ####[facility] [address] [place], [place] [address]Dr. Omid Bowden Globulin (S) [Mass/Vol] 4.4 g/dL Normal [facility] Comment on above: Performed By: #### C MP ####[facility] [address] [address]Dr. Omid Bowden Glucose [Mass/Vol] 103 mg/dL Normal 74-106 [facility] Comment on above: Performed By: #### C MP ####[facility] [address] [address]Dr. Omid Kal Potassium [Moles/Vol] 4.4 mmol/L Normal 3.5-5.1 [facility] Comment on above: Performed By: #### C MP ####[facility] [address] [address]Dr. Omid Bowden Protein [Mass/Vol] 7.4 g/dL Normal 6.4-8.2 [facility] Comment on above: Performed By: #### C MP ####[facility] [address] [place], [place] [address]Dr. Omid Bowden Sodium [Moles/Vol] 140 mmol/L Normal 136-145 [facility] Comment on above: Performed By: #### C MP ####[facility] [address] [place], [place] [address]Dr. Omid Bowden Urea nitrogen [Mass/Vol] 27.0 mg/dL Critically high 7.0-18.0 [facility] Comment on above: Performed By: #### C MP ####[facility] [address] [place], [place] [address]Dr. Omid Kal Urea nitrogen/Creatinine [Mass ratio] 21.1 mg/mg Normal [facility] Comment on above: Performed By: #### C MP ####[facility] [address] [place], [place] [address]Dr. Omid Kal Formson 09-29-2022 Forms [id number]#1.0 0CD:127 Normal [facility] Consent for Procedure/Surger yon 09-26-2022 Consent for Procedure/Surgery [id number] 0CD:127 Normal [facility] Consultation Noteon 09-23-19 Consultation Note [id number]#1.0 0CD:127 Normal [facility] CNOVon 09-22-2022 CNOV Office Visit (RADTSA ) HARMAN MCLEOD ([id number]) 1940 F Date Time Provider Department 09/22/22 [...] the Department of Radiation Oncology at the [facility] with Marcin Shah MD. She was accompanied today by her family. Final recommendations will be communicated back to the requesting physician by way of the shared medical record, or letter to requesting physician via [place] mail. HISTORY OF PRESENT ILLNESS: Ms. Mcleod is an 82-year-old woman from [place], [place] who was discovered on screening mammogram [...] tablet crenshaw (more content not included)... Normal [facility] CNOVSPon 09-22-2022 CNOVSP Visit (SP) Office (HEMASA) HARMAN MCLEOD ([id number]) 1940 F Date Time Provider Department 09/22/22 11:30 AM WALLACE STONE During your visit today, we recorded the following information about you: Temperature Pulse Respiration Blood pressure 97.8 degrees 70/minute 16/minute 137/64 Weight Height 84.8 kg 1.549 m Wallace Stone MD 09/22/2022 5:19 PM Signed PATIENT NAME: Harman Mcleod CLINIC NO.: [id number] ATTENDING PHYSICIAN: Wallace Stone MD DATE OF [...] score of 1+ and FISH negative at [facility]. This patient was subsequently referred to Dr. Iliana Gagnon for surgical consultation. Patient denies any previous history of abnormal mammograms and or breast biopsy. She has had a recent bone density in [place] and was diagnosed with osteoporosis and started on Prolia as well. Patient has a sister who was diagnosed with breast cancer at the age of 82 and her daughter diagnosed with breast cancer at the age of 37. She quit smoking approximately 4 years ago. 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 She [...] mouth daily at bedtime. Cut in half Anirm-5-ESC-EPA-Fish Oil 1,000 mg (120 mg-180 mg) cap [...] high r (more content not included)... Normal [facility] Destinee 09-22-2022 GERRYN Telephone (Adim8) HARMAN MCLEOD ([id number]) 1940 F Date Time Provider Department 09/22/22 [...] daily at bedtime. Cut in half - Jiefm-4-VIV-EPA-Fish Oil 1,000 mg (120 mg-180 mg) cap Take 2 g by mouth twice daily. - isosorbide mononitrate ER (IMDUR) 60 mg 24 hr tablet Take 60 mg by mouth twice daily. 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 Performed By: #### C [facility] ####[facility] [address] [place], [place] [address]MwMedardo Bowden INFLUENZA A AND B AGon 09-21 INFLUANEGH SEE BELOW Normal [facility] Comment on above: Result Comment: Nega tive for Flu A protein angiten. Infection due to Flu A cannot be ruled out. Flu A angiten in the sample may be below the detection limit of the test. Performed By: #### I NFLUAB ####[facility] [address] [place] [address]Dr. Omid Bowden INFLUBNEGH SEE BELOW Normal [facility] Comment on above: Result Comment: Nega tive for Flu B protein antigen. Infection due to Flu B cannot be ruled out. Flu B antigen in the sample may be below the detection limit of the test. Performed By: #### I NFLUAB ####[facility] [address] [place], [place] [address]Dr. Omid Bowedn INFLUENZA A AG Negative Normal NEGATIVE SEE COMMENT [facility] Comment on above: Performed By: #### I NFLUAB ####[facility] [address] [place], [place] [address]Dr. Omid Bowden INFLUENZA B AG Negative Normal NEGATIVE SEE COMMENT [facility] Comment on above: Performed By: #### I NFLUAB ####[facility] [address] [place], [place] [address]Dr. Omid Bowden LIPID PROFILEon 09-16-2022 CHOL-HDL RATIO NORM SEE BELOW Normal [facility] Comment on above: Result Comment: 3.3 - 4.4 LOW RISK 4.4 - 7.1 AVERAGE RISK 7.1 - 11.0 MODERATE RISK >11.0 HIGH RISK Performed By: #### L IPID, BMP #### [facility] [address] [place] [address] Dr. Omid Bowden Cholesterol [Mass/Vol] 210 mg/dL Critically high <=200 [facility] Comment on above: Performed By: #### L IPID, BMP #### [facility] [address] [address] [address] Omid Bowden Cholesterol in HDL [Mass/Vol] 49 mg/dL Normal 40-60 [facility] Comment on above: Performed By: #### L IPID, BMP #### [facility] [address] [place] [address] Dr. Omid Bowden Cholesterol in LDL [Mass/Vol] 84.2 mg/dL Normal [facility] Comment on above: Performed By: #### L IPID, BMP #### [facility] [address] [address] [address] Omid Bowden Cholesterol.total/Chol esterol in HDL [Mass ratio] 4.3 {ratio} Normal [facility] Comment on above: Performed By: #### L IPID, BMP #### [facility] [address] [address] [address] Omid Bowden HDL NORMAL > or = 60 mg/dl - LO W CARDIOVASCULAR RISK <40 mg/dl - HIGH CARDIOVASCULAR RISK Normal [facility] Comment on above: Performed By: #### L IPID, BMP #### [facility] [address] [place] [address] Dr. Omid Bowden LDL CALC NORMAL SEE BELOW Normal [facility] Comment on above: Result Comment: <100 mg/dl OPTIMAL 100 - 129 mg/dl NEAR OR ABOVE OPTIMAL 130 - 159 mg/dl BORDERLINE HIGH 160 - 189 mg/dl HIGH >190 mg/dl VERY HIGH Performed By: #### L IPID, BMP #### [facility] [address] [place] [address] Dr. Omid Bowden Triglyceride [Mass/Vol] 384 mg/dL Critically high <=150 [facility] Comment on above: Performed By: #### L IPID, BMP #### [facility] [address] [place] [address] Dr. Omid Bowden VLDL CALC 76.8 mg/dL Normal [facility] Comment on above: Performed By: #### L IPID, BMP #### [facility] [address] [place] [address] Dr. Omid Bowden PROF CHEM 8 (BAS METB)on Anion gap [Moles/Vol] 10.8 mmol/L Normal [facility] Comment on above: Performed By: #### L IPID, BMP #### [facility] [address] [place] [address] Dr. Omid Bowden Calcium [Mass/Vol] 8.8 mg/dL Normal 8.5-10.1 [facility] Comment on above: Performed By: #### L IPID, BMP #### [facility] [address] [address] [address] Omid Bowden Chloride [Moles/Vol] 98 mmol/L Normal 98-107 [facility] Comment on above: Performed By: #### L IPID, BMP #### [facility] [address] [address] [address] Omid Bowden CO2 [Moles/Vol] 34.5 mmol/L Critically high 21.0-32.0 [facility] Comment on above: Performed By: #### L IPID, BMP #### [facility] [address] [address] [address] Omid Bowden Creatinine [Mass/Vol] 1.17 mg/dL Critically high 0.55-1.02 [facility] Comment on above: Performed By: #### L IPID, BMP #### [facility] [address] [place] [address] Dr. Omid Bowden EGFR-AF TUNISIAN 54 mL/min/1.73m2 Critically low >=60 [facility] Comment on above: Performed By: #### L IPID, BMP #### [facility] [address] [address] [address] Omid Bowden EGFR-NON AF TUNISIAN 45 mL/min/1.73m2 Critically low >=60 [facility] Comment on above: Performed By: #### L IPID, BMP #### [facility] [address] [address] [address] Omid Bowden Glucose [Mass/Vol] 193 mg/dL Critically high 74-106 [facility] Comment on above: Performed By: #### L IPID, BMP #### [facility] [address] [address] [address] Omid Bowden Potassium [Moles/Vol] 3.3 mmol/L Critically low 3.5-5.1 [facility] Comment on above: Performed By: #### L IPID, BMP #### [facility] [address] [address] [address] Omid Bowden Sodium [Moles/Vol] 140 mmol/L Normal 136-145 [facility] Comment on above: Performed By: #### L IPID, BMP #### [facility] [address] [place], [place] [address] Dr. Omid Bowden Urea nitrogen [Mass/Vol] 31.0 mg/dL Critically high 7.0-18.0 [facility] Comment on above: Performed By: #### L IPID, BMP #### [facility] [address] [place], [place] [address] Dr. Omid Bowden Urea nitrogen/Creatinine [Mass ratio] 26.5 mg/mg Normal [facility] Comment on above: Performed By: #### L IPID, BMP #### [facility] [address] [place], [place] [address] Dr. Omid Bowden Facesheeton 09-13-2022 Facesheet [id number]#1.0 0CD:127 Normal [facility] Consultation Noteon 09-01-20 Consultation Note [id number]#1.0 0CD:127 Normal [facility] ED Note-Physicianon 09-01-20 ED Note-Physician [id number]#1.0 0CD:127 Normal [facility] Lab Reportson 09-01-2022 Lab Reports [id number]#1.0 0CD:127 Normal [facility] Lab Reports [id number]#1.0 0CD:127 Normal [facility] Physician Referralon 022 Physician Referral [id number]#1.0 0CD:127 Normal [facility] C. DIFF PCRon 08-23-2022 C. DIFFICILE PCR Negative Normal NEGATIVE [facility] Comment on above: Performed By: #### C DIFPOC ####[facility] [address] [place], [place] [address]Cc. Yilan Bowden CBC AUTO DIFFon 08-19-2022 BASO # 0.0 103/ul Normal 0.0-0.1 [facility] Comment on above: Performed By: #### C BC ####[facility] [address] [place] [address]Dr. Omid Bowden Basophils/100 WBC (Bld) 0.3 % Normal 0.2-2.0 [facility] Comment on above: Performed By: #### C BC ####[facility] [address] [place] [address]Dr. Omid Bowden EO # 0.5 103/ul Normal 0.0-0.7 [facility] Comment on above: Performed By: #### C BC ####[facility] [address] [place] [address]Dr. Omid Kal Eosinophils/100 WBC (Bld) 3.2 % Normal 0.9-7.0 [facility] Comment on above: Performed By: #### C BC ####[facility] [address] [place] [address]Dr. Omid Bowden Erythrocyte distribution width (RBC) [Ratio] 14.1 % Normal 11.0-15.0 [facility] Comment on above: Performed By: #### C BC ####[facility] [address] [place] [address]Dr. Omid Bowden Hematocrit (Bld) [Volume fraction] 36.1 % Normal 36.0-48.0 [facility] Comment on above: Performed By: #### C BC ####[facility] [address] [place] [address]Dr. Omid Bowden Hemoglobin (Bld) [Mass/Vol] 11.7 g/dL Critically low 12.0-16.0 [facility] Comment on above: Performed By: #### C BC ####[facility] [address] [place] [address]Dr. Omid Kal IG # 0.08 10e3/ul Critically high 0.00-0.03 The [facility] Comment on above: Performed By: #### C BC ####[facility] [address] [place] [address]Dr. Omid Bowden IG % 0.5 % Normal 0.0-0.5 [facility] Comment on above: Performed By: #### C BC ####[facility] [address] [place] [address]Dr. Omid Bowden LYMPH # 1.2 103/ul Normal 1.2-3.8 [facility] Comment on above: Performed By: #### C BC ####[facility] [address] [place] [address]Dr. Omid Bowden Lymphocytes/100 WBC (Bld) 7.5 % Critically low 20.5-60.0 [facility] Comment on above: Performed By: #### C BC ####[facility] [address] [place] [address]Dr. Aixamegan Bowden MANUAL DIFF REQ NO Normal [facility] Comment on above: Performed By: #### C BC ####[facility] [address] [place] [address]Dr. Omid Bowden MCH (RBC) [Entitic mass] 29.2 pg Normal 26.7-34.0 [facility] Comment on above: Performed By: #### C BC ####[facility] [address] [place] [address]Dr. Omid Bowden MCHC (RBC) [Mass/Vol] 32.4 g/dL Normal 29.9-35.2 [facility] Comment on above: Performed By: #### C BC ####[facility] [address] [place] [address]Dr. Omid Bowden MCV (RBC) [Entitic vol] 90.0 fL Normal 81.0-99.0 [facility] Comment on above: Performed By: #### C BC ####[facility] [address] [place] [address]Dr. Omid Bowden MONO # 1.0 103/ul Critically high 0.3-0.8 [facility] Comment on above: Performed By: #### C BC ####[facility] [address] [place] [address]Dr. Omid Bowden Monocytes/100 WBC (Bld) 6.8 % Normal 1.7-12.0 [facility] Comment on above: Performed By: #### C BC ####[facility] [address] [place] [address]Dr. Omid Bowden NEUT # 12.5 103/ul Critically high 1.4-6.5 The [facility] Comment on above: Performed By: #### C BC ####[facility] [address] [place] [address]Dr. Omid Bowden Neutrophils/100 WBC (Bld) 81.7 % Critically high 43.0-75.0 [facility] Comment on above: Performed By: #### C BC ####[facility] [address] [place] [address]Dr. Omid Bowden Platelet mean volume (Bld) [Entitic vol] 8.9 fL Critically low 9.5-13.5 [facility] Comment on above: Performed By: #### C BC ####[facility] [address] [place] [address]Dr. Omid Bowden PLT 252 103/ul Normal 150-450 [facility] Comment on above: Performed By: #### C BC ####[facility] [address] [place] [address]Dr. Omid Bowden RBC 4.01 106/ul Critically low 4.20-5.40 [facility] Comment on above: Performed By: #### C BC ####[facility] [address] [place] [address]Dr. Omid Bowden WBC 15.3 103/ul Critically high 4.0-11.0 [facility] Comment on above: Performed By: #### C BC ####[facility] [address] [place] [address]Dr. Omid Bowden IRONon 08-19-2022 Iron [Mass/Vol] 59.0 ug/dL Normal 50.0-170.0 [facility] Comment on above: Performed By: #### H GB #### [facility] [address] [address] [address] Omid Bowden MAMMO POST BIOPSY RIGHTon MAMMO POST BIOPSY RIGHT Patient: HARMAN MCLEOD Exam Date: 08/19/2022 : 1940 Gender:F Ordering : DR MATEUS PERRY . Admission #: [id number] Family : Order #: [id number] CLICK HERE TO VIEW EXAM This report [...] MD on 09/06/2022 at 09:57 Normal [facility] PROTIMEon 08-19-2022 INR Coag (PPP) [Relative time] 0.99 {INR} Normal [facility] Comment on above: Performed By: #### P T, PTT ####[facility] [address] [place] [address]Dr. Omid Bowden INR GUIDELINES SEE BELOW Normal [facility] Comment on above: Result Comment: PERLITA RED INR: 2.0 - 3.0 CONDITIONS NOT LISTED BELOW 2.5 - 3.5 FOR PROSTHETIC HEART VALVE REPLACEMENT 2.5 - 3.5 RECURRENT THROMBOSIS Performed By: #### P T, PTT ####[facility] [address] [place] [address]Dr. Omid Bowden PT Coag (PPP) [Time] 10.7 s Normal 9.0-11.6 [facility] Comment on above: Performed By: #### P T, PTT ####[facility] [address] [place], [place] [address]EiMedardo Bowden PTTon 08-19-2022 aPTT Coag (Bld) [Time] 26.0 s Normal 22.3-36.2 Th e [facility] Comment on above: Performed By: #### P T, PTT ####[facility] [address] [place], [place] [address]Wk. Omid Bowden US VAC ASST BX BRST RT W CLI Jose Maria 08-19-2022 US VAC ASST BX BRST RT W CLIP Patient: HARMAN MCLEOD Exam Date: 08/19/2022 : 1940 Gender:F Ordering : DR MATEUS PERRY . Admission #: [id number] Family : Order #: [id number] CLICK HERE TO VIEW EXAM This report [...] MD on 09/06/2022 at 09:55 Normal [facility] CULTURE URINEon 08-16-2022 CULTURE URINE Isolate [...] R F Nitrofurantoin <=16 S F Normal [facility] Comment on above: Performed By: #### U RCX ####[facility] [address] [place] [address]Dr. Omid Bowden CARDIAC ADILIA ADMITon 022 CK [Catalytic activity/Vol] 128 U/L Normal 26-192 [facility] Comment on above: Performed By: #### L IPID, BMP #### [facility] [address] [place] [address] Dr. Omid Bowden CK.MB [Mass/Vol] 2.88 ng/mL Normal <=3.60 [facility] Comment on above: Performed By: #### L IPID, BMP #### [facility] [address] [place] [address] Dr. Omid Bowden HSTROP 24.1 pg/mL Normal 4.0-51.3 [facility] Comment on above: Result Comment: CUT- OFF POINTS HAVE BEEN ESTABLISHED BASED ON THE FOURTH UNIVERSAL DEFINITIONS OF MYOCARDIAL INFARCTION. THE UPPER REFERENCE LIMIT (URL) OF TROPONIN, DEFINED THE 99TH PERCENTILE OF cTnI DISTRIBUTION IN A REFERENCE POPULATION, HAS BEEN CONFIRMED THE DECISION THRESHOLD FOR IA DIAGNOSIS. Performed By: #### L IPID, BMP #### [facility] [address] [address] [address] Omid Bowden JACINTA 61 ng/mL Normal 9-82 [facility] Comment on above: Performed By: #### L IPID, BMP #### [facility] [address] [address] [address] Omid Bowden CBC AUTO DIFFon 08-14-2022 BASO # 0.0 103/ul Normal 0.0-0.1 [facility] Comment on above: Performed By: #### H GB #### [facility] [address] [address] [address] Omid Bowden Basophils/100 WBC (Bld) 0.4 % Normal 0.2-2.0 [facility] Comment on above: Performed By: #### H GB #### [facility] [address] [address] [address] Omid Bowden EO # 0.3 103/ul Normal 0.0-0.7 [facility] Comment on above: Performed By: #### H GB #### [facility] [address] [address] [address] Omid Bowden Eosinophils/100 WBC (Bld) 2.6 % Normal 0.9-7.0 [facility] Comment on above: Performed By: #### H GB #### [facility] [address] [place] [address] Dr. Omid Bowden Erythrocyte distribution width (RBC) [Ratio] 14.1 % Normal 11.0-15.0 [facility] Comment on above: Performed By: #### H GB #### [facility] [address] [place] [address] Dr. Omid Bowden Hematocrit (Bld) [Volume fraction] 35.5 % Critically low 36.0-48.0 [facility] Comment on above: Performed By: #### H GB #### [facility] [address] [place] [address] Dr. Omid Bowden Hemoglobin (Bld) [Mass/Vol] 11.6 g/dL Critically low 12.0-16.0 [facility] Comment on above: Performed By: #### H GB #### [facility] [address] [place] [address] Dr. Omid Bowden IG # 0.06 10e3/ul Critically high 0.00-0.03 [facility] Comment on above: Performed By: #### H GB #### [facility] [address] [place] [address] Dr. Omid Bowden IG % 0.6 % Critically high 0.0-0.5 [facility] Comment on above: Performed By: #### H GB #### [facility] [address] [place] [address] Dr. Omid Bowden LYMPH # 3.4 103/ul Normal 1.2-3.8 [facility] Comment on above: Performed By: #### H GB #### [facility] [address] [place] [address] Dr. Omid Bowden Lymphocytes/100 WBC (Bld) 35.5 % Normal 20.5-60.0 [facility] Comment on above: Performed By: #### H GB #### [facility] [address] [place] [address] Dr. Omid Bowden MANUAL DIFF REQ NO Normal [facility] Comment on above: Performed By: #### H GB #### [facility] [address] [place] [address] Dr. Omid Bowden MCH (RBC) [Entitic mass] 29.5 pg Normal 26.7-34.0 [facility] Comment on above: Performed By: #### H GB #### [facility] [address] [place] [address] Dr. Omid Bowden MCHC (RBC) [Mass/Vol] 32.7 g/dL Normal 29.9-35.2 [facility] Comment on above: Performed By: #### H GB #### [facility] [address] [place] [address] Dr. Omid Bowden MCV (RBC) [Entitic vol] 90.3 fL Normal 81.0-99.0 [facility] Comment on above: Performed By: #### H GB #### [facility] [address] [place] [address] Dr. Omid Bowden MONO # 1.0 103/ul Critically high 0.3-0.8 [facility] Comment on above: Performed By: #### H GB #### [facility] [address] [place] [address] Dr. Omid Bowden Monocytes/100 WBC (Bld) 10.5 % Normal 1.7-12.0 [facility] Comment on above: Performed By: #### H GB #### [facility] [address] [address] [address] Omid Bowden NEUT # 4.8 103/ul Normal 1.4-6.5 [facility] Comment on above: Performed By: #### H GB #### [facility] [address] [address] [address] Omid Bowden Neutrophils/100 WBC (Bld) 50.4 % Normal 43.0-75.0 [facility] Comment on above: Performed By: #### H GB #### [facility] [address] [address] [address] Omid Bowden Platelet mean volume (Bld) [Entitic vol] 9.1 fL Critically low 9.5-13.5 [facility] Comment on above: Performed By: #### H GB #### [facility] [address] [address] [address] Omid Bowden PLT 276 103/ul Normal 150-450 [facility] Comment on above: Performed By: #### H GB #### [facility] [address] [address] [address] Omid Bowden RBC 3.93 106/ul Critically low 4.20-5.40 [facility] Comment on above: Performed By: #### H GB #### [facility] [address] [address] [address] Omid Bowden WBC 9.5 103/ul Normal 4.0-11.0 [facility] Comment on above: Performed By: #### H GB #### [facility] [address] [address] [address] Omid Bowden ER URINE PROFILEon 2 Bilirubin Ql (U) Negative Normal NEGATIVE [facility] Comment on above: Performed By: #### U MICRO, ERUR ####[facility] [address] [place] [address]Dr. Omid Bowden Clarity (U) CLEAR Normal CLEAR [facility] Comment on above: Performed By: #### U MICRO, ERUR ####[facility] [address] [place] [address]Dr. Omid Bowden Color (U) LT. YELLOW Normal YELLOW [facility] Comment on above: Performed By: #### U MICRO, ERUR ####[facility] [address] [place] [address]Dr. Omid Bowden ERUAHD A micrscopic examination will be performed if indicated. Normal [facility] Comment on above: Performed By: #### U MICRO, ERUR ####[facility] [address] [place] [address]Dr. Omid Bowden Glucose Ql (U) Negative Normal NEGATIVE [facility] Comment on above: Performed By: #### U MICRO, ERUR ####[facility] [facility] [address] [place], [place] [address]Dr. Omid Bowden Hemoglobin Ql (U) Negative Normal NEGATIVE [facility] Comment on above: Performed By: #### U MICRO, ERUR ####[facility] [address] [place], [place] [address]Dr. Omid Bowden Ketones Ql (U) Negative Normal NEGATIVE [facility] Comment on above: Performed By: #### U MICRO, ERUR ####[facility] X[address] [place], [place] [address]Dr. Omid Bowden LEUKOCYTES TRACE Abnormal NEGATIVE [facility] Comment on above: Performed By: #### U MICRO, ERUR ####[facility] [address] [address]Dr. Omid Bowden Nitrite Ql (U) Negative Normal NEGATIVE [facility] Comment on above: Performed By: #### U MICRO, ERUR ####[facility] F[address] [place], [place] [address]Dr. Omid Bowden pH (U) 6.0 [pH] Normal 5-9 [facility] Comment on above: Performed By: #### U MICRO, ERUR ####[facility] Sw[address] [place], [place] [address]Dr. Omid Bowden SPEC GRAVITY 1.020 Normal 1.005-<=1.0 25 [facility] Comment on above: Performed By: #### U MICRO, ERUR ####[facility] [address] [place] [address]DrMedardo Bowden UA PROTEIN Negative Normal NEGATIVE/ TRACE [facility] Comment on above: Performed By: #### U MICRO, ERUR ####[facility] [address] [address]Dr. Omid Bowden UR MICRO IND INDICATED Normal [facility] Comment on above: Performed By: #### U MICRO, ERUR ####[facility] [address] [address]Dr. Omid Bowden Urobilinogen Qn (U) 0.2 {Jose'U}/dL Normal 0.2 - 1. 0 [facility] Comment on above: Performed By: #### U MICRO, ERUR ####[facility] [address] [place], [place] [address]DrMedardo Bowden OCC BLD IMMUNO SCREENon OCCULT BLOOD Negative Normal NEGATIVE [facility] Comment on above: Performed By: #### O BSCRN #### [facility] [address] [place] [address] Dr. Omid Bowden PROF CHEM 8 (BAS METB)on Anion gap [Moles/Vol] 5.5 mmol/L Normal [facility] Comment on above: Performed By: #### L IPID, BMP #### [facility] [address] [place] [address] Dr. Omid Bowden Calcium [Mass/Vol] 8.6 mg/dL Normal 8.5-10.1 [facility] Comment on above: Performed By: #### L IPID, BMP #### [facility] [address] [place] [address] Dr. Omid Bowden Chloride [Moles/Vol] 103 mmol/L Normal 98-107 [facility] Comment on above: Performed By: #### L IPID, BMP #### [facility] [address] [place] [address] Dr. Omid Bowden CO2 [Moles/Vol] 31.8 mmol/L Normal 21.0-32.0 [facility] Comment on above: Performed By: #### L IPID, BMP #### [facility] [address] [address] [address] Omid Bowden Creatinine [Mass/Vol] 0.99 mg/dL Normal 0.55-1.02 [facility] Comment on above: Performed By: #### L IPID, BMP #### [facility] [address] [address] [address] Omid Bowden EGFR-AF TUNISIAN >60 Normal >=60 [facility] Comment on above: Performed By: #### L IPID, BMP #### [facility] [address] [address] [address] Omid Bowden EGFR-NON AF TUNISIAN 54 mL/min/1.73m2 Critically low >=60 [facility] Comment on above: Performed By: #### L IPID, BMP #### [facility] [address] [address] [address] Omid Bowden Glucose [Mass/Vol] 112 mg/dL Critically high 74-106 [facility] Comment on above: Performed By: #### L IPID, BMP #### [facility] [address] [address] [address] Omid Bowden Potassium [Moles/Vol] 3.3 mmol/L Critically low 3.5-5.1 [facility] Comment on above: Performed By: #### L IPID, BMP #### [facility] [address] [address] [address] Omid Bowden Sodium [Moles/Vol] 137 mmol/L Normal 136-145 [facility] Comment on above: Performed By: #### L IPID, BMP #### [facility] [address] [address] [address] Omid Bowden Urea nitrogen [Mass/Vol] 20.0 mg/dL Critically high 7.0-18.0 [facility] Comment on above: Performed By: #### L IPID, BMP #### [facility] [address] [address] [address] Omid Bowden Urea nitrogen/Creatinine [Mass ratio] 20.2 mg/mg Normal [facility] Comment on above: Performed By: #### L IPMOHSEN, BMP #### [facility] [address] [address] [address] Omid Bowden URINE MICROSCOPIC ONLYon BACTERIA TRACE Abnormal NONE SEEN [facility] Comment on above: Performed By: #### U MICRO, ERUR ####[facility] [address] [address]Dr. Omid Bowden Bacteria identified Cx Nom (U) INDICATED Normal [facility] Comment on above: Performed By: #### U MICRO, ERUR ####[facility] [address] [address]Dr. Omid Bowden CAST NONE SEEN Normal NONE SEEN [facility] Comment on above: Performed By: #### U MICRO, ERUR ####[facility] [address] [address]Dr. Omid Bowden Crystals LM Nom (Urine sed) NONE SEEN Normal NONE SEEN [facility] Comment on above: Performed By: #### U MICRO, ERUR ####[facility] [address] [address]Dr. Omid Bowden Epithelial cells LM Ql (Urine sed) FEW Abnormal NONE SEEN /RARE [facility] Comment on above: Performed By: #### U MICRO, ERUR ####[facility] [address] [place], [place] [address]Dr. Omid Bowden MUCOUS NONE SEEN Normal NONE SEEN [facility] Comment on above: Performed By: #### U MICRO, ERUR ####[facility] [address] [address]Dr. Omid Bowden RBC 0-2 Normal 0-2 [facility] Comment on above: Performed By: #### U MICRO, ERUR ####[facility] [address] [place], [place] [address]Dr. Omid Bowden WBC 20-50 Abnormal NONE SEEN [facility] Comment on above: Performed By: #### U MICRO, ERUR ####[facility] [address] [place], [place] [address]LwDr. Omid Bowden XR CHEST 1 Von 08-14-2022 [...] HILL BAILON Date: 2022-08-14 00:46 Normal [facility] Covid-19 PCR (CVDTBH)on SARS-CoV-2 (COVID-19) RNA MARII+probe Ql (Unsp spec) Not detected Normal NOT DETECTED [facility] Comment on above: Result Comment: When [...] for this test is supported by the [place] of [employer] and Human Service's declaration that [...] used). Performed By: #### C VDTB #### [facility] [address] [place], [place] [address] Dr. Omid Bowden MG MAMM RT DIAG FUon 022 MG MAMM RT DIAG FU Patient: HARMAN MCLEOD Exam Date: 08/08/2022 : 1940 Gender:F Ordering : DR MATEUS PERRY . Admission #: [id number] Family : Order #: [id number] CLICK HERE TO VIEW EXAM RADIOLOGY REPORT [...] uterine cancer at age 39. LOCATION: [facility] BREAST COMPOSITION: Scattered areas fibroglandular density. [...] George M.D. on 08/08/2022 at 15:28 Normal [facility] PROF CHEM 8 (BAS METB)on Anion gap [Moles/Vol] 9.3 mmol/L Normal [facility] Comment on above: Performed By: #### B MP #### [facility] [address] [address] [address] Omid Bowden Calcium [Mass/Vol] 8.1 mg/dL Critically low 8.5-10.1 [facility] Comment on above: Performed By: #### B MP #### [facility] [address] [address] [address] Omid Bowden Chloride [Moles/Vol] 100 mmol/L Normal 98-107 [facility] Comment on above: Performed By: #### B MP #### [facility] [address] [address] [address] Omid Bowden CO2 [Moles/Vol] 31.9 mmol/L Normal 21.0-32.0 [facility] Comment on above: Performed By: #### B MP #### [facility] [address] [address] [address] Omid Bowden Creatinine [Mass/Vol] 1.25 mg/dL Critically high 0.55-1.02 [facility] Comment on above: Performed By: #### B MP #### [facility] [address] [place] [address] Dr. Omid Bowden EGFR-AF TUNISIAN 50 mL/min/1.73m2 Critically low >=60 [facility] Comment on above: Performed By: #### B MP #### [facility] [address] [place] [address] Dr. Omid Bowden EGFR-NON AF TUNISIAN 41 mL/min/1.73m2 Critically low >=60 [facility] Comment on above: Performed By: #### B MP #### [facility] [address] [place] [address] Dr. Omid Bowden Glucose [Mass/Vol] 215 mg/dL Critically high 74-106 [facility] Comment on above: Performed By: #### B MP #### [facility] [address] [address] [address] Omid Bowden Potassium [Moles/Vol] 3.2 mmol/L Critically low 3.5-5.1 [facility] Comment on above: Performed By: #### B MP #### [facility] [address] [address] [address] Omid Bowden Sodium [Moles/Vol] 138 mmol/L Normal 136-145 [facility] Comment on above: Performed By: #### B MP #### [facility] [address] [address] [address] Omid Bowden Urea nitrogen [Mass/Vol] 32.0 mg/dL Critically high 7.0-18.0 [facility] Comment on above: Performed By: #### B MP #### [facility] [address] [place], [place] [address] Dr. Omid Bowden Urea nitrogen/Creatinine [Mass ratio] 25.6 mg/mg Normal [facility] Comment on above: Performed By: #### B MP #### [facility] [address] [place], [place] [address] Dr. Omid Bowden US BREAST RIGHT LIMITEDon US BREAST RIGHT LIMITED Patient: HARMAN MCLEOD Exam Date: 08/08/2022 : 1940 Gender:F Ordering : DR MATEUS PERRY . Admission #: [id number] Family : Order #: [id number] CLICK HERE TO VIEW EXAM RADIOLOGY REPORT [...] uterine cancer at age 39. LOCATION: [facility] BREAST COMPOSITION: Scattered areas fibroglandular density. [...] M.D. on 08/08/2022 at 15:28 Normal [facility] CALCIUMon 08-02-2022 Calcium [Mass/Vol] 8.9 mg/dL Normal 8.5-10.1 [facility] Comment on above: Performed By: #### H GB #### [facility] [address] [address] [address] Omid Bowden CREATININEon 08-02-2022 Creatinine [Mass/Vol] 1.19 mg/dL Critically high 0.55-1.02 [facility] Comment on above: Performed By: #### H GB #### [facility] [address] [address] [address] Omid Bowden EGFR-AF TUNISIAN 53 mL/min/1.73m2 Critically low >=60 [facility] Comment on above: Performed By: #### H GB #### [facility] [address] [place] [address] Dr. Omid Bowden EGFR-NON AF TUNISIAN 44 mL/min/1.73m2 Critically low >=60 [facility] Comment on above: Performed By: #### H GB #### [facility] [address] [place] [address] Dr. Omid Bowden MG MAMM SCREEN 3D DAVID CADon 07-19-2022 MG MAMM SCREEN 3D DAVID CAD Patient: HARMAN MCLEOD Exam Date: 07/19/2022 : 1940 Gender:F Ordering : DR MATEUS PERRY . Admission #: [id number] Family : Order #: [id number] CLICK HERE TO VIEW EXAM RADIOLOGY REPORT [...] Bauman MD on 07/20/2022 at 07:33 Normal [facility] XR DEXA BONE DENSITYon 07-19 XR DEXA [...] by: JUDSON BAUMAN Date: 2022-07-19 20:17 Normal [facility] CALCIUM, IONIC (POC)on 06-28 POC Ionized Calcium 1.21 mmol/L 1.15 - 1 .33 mmol/L [facility] Median CHLORIDE (POC)on 06-28-2022 Chloride [Moles/Vol] 103 mmol/L 98 - 10 7 mmol/L [facility] Median Creatinine W/GFR Point of Ca reon 06-28-2022 Creatinine [Mass/Vol] 0.93 mg/dL 0.51 - 1.19 mg/dL [facility] [employer] eGFR, POC mL/min/1.73 m2 [facility] Median Comment on above: Effective Jun 13, 2022 [...] 1.56 mmol/L High 0.56 - 1.39 mmol/L [facility] No Panel Informationon 06-28 Interpretation and review of laboratory results Abnormal [facility] POC Glucose Fingerstickon Glucose [Mass/Vol] 135 mg/dL High 65 - 105 mg/dL [facility] Interpretation and review of laboratory results Abnormal [facility] POCT Glucoseon 06-28-2022 Glucose [Mass/Vol] 147 mg/dL High 74 - 100 mg/dL [facility] POCT urea (BUN)on 06-28-2022 Urea nitrogen [Mass/Vol] 20 mg/dL 8 - 26 mg/dL [facility] POTASSIUM (POC)on 06-28-2022 Potassium [Moles/Vol] 3.7 mmol/L 3.5 - 4.5 mmol/L [facility] SODIUM (POC)on 06-28-2022 Sodium [Moles/Vol] 141 mmol/L 138 - 146 mmol/L [facility] PROF CHEM 8 (BAS METB)on Anion gap [Moles/Vol] 9.0 mmol/L Normal [facility] Comment on above: Performed By: #### B MP ####[facility] [address] [place] [address]Dr. Omid Bowden Calcium [Mass/Vol] 9.0 mg/dL Normal 8.5-10.1 [facility] Comment on above: Performed By: #### B MP ####[facility] [address] [place] [address]Dr. Omid Bowden Chloride [Moles/Vol] 98 mmol/L Normal 98-107 [facility] Comment on above: Performed By: #### B MP ####[facility] [address] [place] [address]Dr. Omid Bowden CO2 [Moles/Vol] 33.2 mmol/L Critically high 21.0-32.0 [facility] Comment on above: Performed By: #### B MP ####[facility] [address] [place] [address]Dr. Omid Bowden Creatinine [Mass/Vol] 1.32 mg/dL Critically high 0.55-1.02 [facility] Comment on above: Performed By: #### B MP ####[facility] [address] [place], [place] [address]Dr. Omid Kal EGFR-AF TUNISIAN 47 mL/min/1.73m2 Critically low >=60 [facility] Comment on above: Performed By: #### B MP ####[facility] [address] [place], [place] [address]Dr. Aixamegan Kal EGFR-NON AF TUNISIAN 39 mL/min/1.73m2 Critically low >=60 [facility] Comment on above: Performed By: #### B MP ####[facility] [address] [place], [place] [address]Dr. Aixamegan Bowden Glucose [Mass/Vol] 220 mg/dL Critically high 74-106 [facility] Comment on above: Performed By: #### B MP ####[facility] [address] [place], [place] [address]Dr. Omid Bowden Potassium [Moles/Vol] 3.2 mmol/L Critically low 3.5-5.1 [facility] Comment on above: Performed By: #### B MP ####[facility] [address] [place], [place] [address]Dr. Omid Bowden Sodium [Moles/Vol] 137 mmol/L Normal 136-145 [facility] Comment on above: Performed By: #### B MP ####[facility] [address] [place], [place] [address]Dr. Omid Kal Urea nitrogen [Mass/Vol] 31.0 mg/dL Critically high 7.0-18.0 [facility] Comment on above: Performed By: #### B MP ####[facility] [address] [place] [address]Ef. Omid Bowden Urea nitrogen/Creatinine [Mass ratio] 23.5 mg/mg Normal [facility] Comment on above: Performed By: #### B ####[facility] [address] [place], [place] [address]Pq. Omid Bowden ECHOCARDIO M/2D COMPLETEon 0 04-12-2022 ECHOCARDIO M/2D COMPLETE Patient: HARMAN MCLEOD Exam Date: 04/12/2022 : 1940 Gender:F Ordering : SONALI [facility] Admission #: [id number] Family : Order #: [id number] CLICK HERE TO VIEW EXAM ECHOCARDIOGRAM REPORT [...] Keyes M.D. on 04/12/2022 at 19:15 Normal [facility] PROF CHEM 8 (BAS METB)on Anion gap [Moles/Vol] 12.4 mmol/L Normal [facility] Comment on above: Performed By: #### B MP ####[facility] [address] [place] [address]Dr. Omid Bowden Calcium [Mass/Vol] 9.1 mg/dL Normal 8.5-10.1 [facility] Comment on above: Performed By: #### B MP ####[facility] [address] [place] [address]Dr. Omid Bowden Chloride [Moles/Vol] 100 mmol/L Normal 98-107 [facility] Comment on above: Performed By: #### B MP ####[facility] [address] [place], [place] [address]Dr. Omid Bowden CO2 [Moles/Vol] 33.0 mmol/L Critically high 21.0-32.0 [facility] Comment on above: Performed By: #### B MP ####[facility] [address] [place], [place] [address]Dr. Omid Bowden Creatinine [Mass/Vol] 1.15 mg/dL Critically high 0.55-1.02 [facility] Comment on above: Performed By: #### B MP ####[facility] [address] [place] [address]Dr. Omid Bowden EGFR-AF TUNISIAN 55 mL/min/1.73m2 Critically low >=60 [facility] Comment on above: Performed By: #### B MP ####[facility] [address] [place], [place] [address]Dr. Omid Bowden EGFR-NON AF TUNISIAN 46 mL/min/1.73m2 Critically low >=60 [facility] Comment on above: Performed By: #### B MP ####[facility] [address] [place], [place] [address]Dr. Omid Bowden Glucose [Mass/Vol] 167 mg/dL Critically high 74-106 [facility] Comment on above: Performed By: #### B MP ####[facility] [address] [place] [address]Dr. Omid Bowden Potassium [Moles/Vol] 3.4 mmol/L Critically low 3.5-5.1 [facility] Comment on above: Performed By: #### B MP ####[facility] [address] [place] [address]Dr. Omid Bowden Sodium [Moles/Vol] 142 mmol/L Normal 136-145 [facility] Comment on above: Performed By: #### B MP ####[facility] [address] [place] [address]Dr. Omid Bowden Urea nitrogen [Mass/Vol] 23.0 mg/dL Critically high 7.0-18.0 [facility] Comment on above: Performed By: #### B MP ####[facility] [address] [place], [place] [address]Dr. Omid Bowden Urea nitrogen/Creatinine [Mass ratio] 20.0 mg/mg Normal [facility] Comment on above: Performed By: #### B MP ####[facility] [address] [place], [place] [address]Dr. Omid Bowden SYMPTOMATIC COVID-19 ANTIGEN on 03-16-2022 EUA Statement SEE BELOW Normal [facility] Comment on above: Result Comment: This [...] Performed By: #### L IPID, BMP #### [facility] [address] [place] [address] Dr. Omid Bowden SARS-CoV-2 (COVID-19) RNA MARII+probe Ql (Unsp spec) Positive Critically abnormal NEGATIVE [facility] Comment on above: Performed By: #### L IPID, BMP #### [facility] [address] [place] [address] Dr. Omid Bowden HEMOGLOBINon 03-15-2022 Hemoglobin (Bld) [Mass/Vol] 12.3 g/dL Normal 12.0-16.0 [facility] Comment on above: Performed By: #### H GB #### [facility] [address] [place] [address] Dr. Omid Bowden BNPon 02-15-2022 Natriuretic peptide B (Bld) [Mass/Vol] 598.0 pg/mL Normal <=1,800.0 [facility] Comment on above: Performed By: #### L IPID, BMP #### [facility] [address] [place] [address] Dr. Oimd Bowden PROF CHEM 8 (BAS METB)on Anion gap [Moles/Vol] 11.9 mmol/L Normal [facility] Comment on above: Performed By: #### L IPID, BMP #### [facility] [address] [place] [address] Dr. Omid Bowden Calcium [Mass/Vol] 9.1 mg/dL Normal 8.5-10.1 [facility] Comment on above: Performed By: #### L IPID, BMP #### [facility] [address] [place] [address] Dr. Omid Bowden Chloride [Moles/Vol] 98 mmol/L Normal 98-107 [facility] Comment on above: Performed By: #### L IPID, BMP #### [facility] [address] [place] [address] Dr. Omid Bowden CO2 [Moles/Vol] 33.2 mmol/L Critically high 21.0-32.0 [facility] Comment on above: Performed By: #### L IPID, BMP #### [facility] [address] [address] [address] Omid Bowden Creatinine [Mass/Vol] 1.28 mg/dL Critically high 0.55-1.02 [facility] Comment on above: Performed By: #### L IPID, BMP #### [facility] [address] [address] [address] Omid Bowden EGFR-AF TUNISIAN 49 mL/min/1.73m2 Critically low >=60 [facility] Comment on above: Performed By: #### L IPID, BMP #### [facility] [address] [place] [address] Dr. Omid Bowden EGFR-NON AF TUNISIAN 40 mL/min/1.73m2 Critically low >=60 [facility] Comment on above: Performed By: #### L IPID, BMP #### [facility] [address] [address] [address] Omid Bowden Glucose [Mass/Vol] 182 mg/dL Critically high 74-106 [facility] Comment on above: Performed By: #### L IPID, BMP #### [facility] [address] [address] [address] Omid Bowden Potassium [Moles/Vol] 3.1 mmol/L Critically low 3.5-5.1 [facility] Comment on above: Performed By: #### L IPID, BMP #### [facility] [address] [address] [address] Omid Bowden Sodium [Moles/Vol] 140 mmol/L Normal 136-145 [facility] Comment on above: Performed By: #### L IPID, BMP #### [facility] [address] [address] [address] Omid Bowden Urea nitrogen [Mass/Vol] 30.0 mg/dL Critically high 7.0-18.0 [facility] Comment on above: Performed By: #### L IPID, BMP #### [facility] [address] [address] [address] Omid Bowden Urea nitrogen/Creatinine [Mass ratio] 23.4 mg/mg Normal [facility] Comment on above: Performed By: #### L IPID, [facility] #### [facility] [address] [address] [address] Omid Bowden XR CHEST 2 Von [...] ALFONSO GEORGE Date: 2022-02-09 11:53 Normal [facility] No Panel Informationon 12-13 [employer] POCT Glucoseon 12-13-2021 Glucose [Mass/Vol] 196 mg/dL High 74 - 100 mg/dL [employer] Interpretation and review of laboratory results Abnormal [employer] POTASSIUM (POC)on 12-13-2021 Potassium [Moles/Vol] 3.7 mmol/L 3.5 - 4.5 mmol/L [employer] TYPE AND SCREENon 12-10-2021 ABO/Rh Positive [employer] Arm Band Number [id number] [facility] Expiration Date 12/16/2021,2359 [employer] EKG 12 leadOrdered By: Dennis Garcia on 12-07-2021 Atrial Rate 66 BPM [employer] Work Phone: P [place] 67 degrees [employer] Work Phone: P-R Interval 126 ms [employer] Work Phone: Q-T Interval 466 ms [employer] Work Phone: QRS Duration 150 ms [employer] Work Phone: QTc Calculation (Bazett) 488 ms [employer] Work Phone: R [place] 32 degrees [facility] Work Phone: T [place] 161 degrees [facility] Work Phone: Ventricular Rate 66 BPM [facility] Work Phone: [facility] Work Phone: EKG 12 leadon 12-07-2021 Sinus [...] wave inversion now evident in Inferior leads [facility] Work Phone: CBC auto differentialon 11-10 [employer] # 0.13 [place] [facility] Absolute Immature Granulocyte 0.12 [facility] Absolute Lymph # 3.18 [facility] alth Absolute Crook # 1.22 High [facility] lt Basophils (Bld) [#/Vol] 0.05 10*3/uL [facility] Basophils/100 WBC (Bld) 0 % 0 - 2 % [facility] Eosinophils/100 WBC (Bld) 1 % 1 - 4 % [facility] Hematocrit (Bld) [Volume fraction] 38.4 % 36.3 - 47.1 % [facility] Hemoglobin.gastrointes tinal spec 1 Ql (Stl) 12.2 g/dL 11.9 - 15.1 g/dL [facility] Immature granulocytes/100 WBC (Bld) 1 % High 0 [facility] Interpretation and review of laboratory results Abnormal [facility] Lymphocytes/100 WBC (Bld) 25 % 24 - 43 % [facility] MCH (RBC) [Entitic mass] 29.9 pg 25.2 - 33.5 pg [facility] MCHC (RBC) [Mass/Vol] 31.8 g/dL 28.4 - 34.8 g/dL [facility] MCV (RBC) [Entitic vol] 94.1 fL 82.6 - 102.9 fL [facility] Monocytes/100 WBC (Bld) 10 % 3 - 12 % [facility] NRBC Automated 0.0 0.0 per 100 WBC [facility] Platelet distribution width (Bld) [Ratio] 14.5 % High 11.8 - 14.4 % [facility] Platelet mean volume (Bld) [Entitic vol] 10.1 fL 8.1 - 13.5 fL [facility] Platelets (Bld) [#/Vol] 266 10*3/uL [facility] RBC (Bld) [#/Vol] 4.08 10*6/uL 3.95 - 5.1 1 m/uL [facility] RBC (Bld) [#/Vol] ANISOCYTOSIS PRESENT [facility] Segmented neutrophils/100 WBC (Bld) 63 % 36 - 65 % [facility] [#/Vol] 12.6 10*3/uL High [facility] Comprehensive Metabolic Pane l w/ Reflex to MGon 12-06-2021 Albumin [Mass/Vol] 3.7 g/dL 3.5 - 5.2 g/dL [facility] Albumin/Globulin [Mass ratio] 1.1 {ratio} [facility] ALP (Bld) [Catalytic activity/Vol] 93 U/L 35 - 104 U/L [facility] ALT [Catalytic activity/Vol] 12 U/L 5 - 33 U/L [facility] Anion gap [Moles/Vol] 14 mmol/L 9 - 17 mmol/L [facility] AST [Catalytic activity/Vol] 12 U/L <32 [facility] Bilirubin [Mass/Vol] 0.25 mg/dL Low 0.3 - 1 .2 mg/dL [facility] Calcium [Mass/Vol] 9.1 mg/dL 8.6 - 10. 4 mg/dL [facility] Chloride [Moles/Vol] 95 mmol/L Low 98 - 10 7 mmol/L [facility] CO2 [Moles/Vol] 30 mmol/L 20 - 31 mmol/L [facility] Creatinine [Mass/Vol] 1.07 mg/dL High 0.50 - 0.90 mg/dL [facility] Free PSA/Total PSA [Mass fraction] 7.2 g/dL 6.4 - 8.3 g/dL [facility] GFR 60 mL/min Low >60 [facility] GFR Non- 49 mL/min Low >60 [facility] GFR/1.73 sq M.predicted MDRD (S/P/Bld) [Vol rate/Area] [facility] Comment on above: Average GFR for 70 o r more years old: 75 mL/min/1.73sq m Chronic Kidney Disease: <60 mL/min/1.73sq m Kidney failure: <15 mL/min/1.73sq m eGFR calculated using average adult body mass. Additional eGFR calculator available at: http://www.Prolebrity/multiple_crcl_2012.htm Glucose [Mass/Vol] 188 mg/dL High 70 - 99 mg/dL [facility] Interpretation and review of laboratory results Abnormal [facility] Potassium [Moles/Vol] 3.3 mmol/L Low 3.7 - 5.3 mmol/L [facility] Sodium [Moles/Vol] 139 mmol/L 135 - 144 mmol/L [facility] Urea nitrogen (BldV) [Mass/Vol] 22 mg/dL 8 - 23 mg/dL [facility] Magnesiumon 12-06-2021 Magnesium [Mass/Vol] 1.6 mg/dL 1.6 - 2 .6 mg/dL [facility] No Panel Informationon 12-06 No acute process. [facility] RIS CONSOLIDATED EXAMINATION: TWO XRAY VIEWS [...] The osseous structures are without acute process. [facility] RIS CONSOLIDATED Kael Freeman MD - 12/06/2021 [...] without acute process. IMPRESSION: No acute process. mPort Phone: Radiology Study observation (narrative) mPort Phone: No Panel InformationOrdered By: Kael Freeman on 12-06-2021 mPort Phone: Creatinine W/GFR Point of Ca reOrdered By: Kin Abarca on 06-15-2021 Creatinine [Mass/Vol] 0.89 mg/dL 0.51 - 1.19 mg/dL mPort Phone: GFR Non- >60 >60 mL/min mPort Phone: GFR/1.73 sq M.predicted MDRD (S/P/Bld) [Vol rate/Area] mL/min/{1.73_m2} >60 mL/min mPort Phone: GFR/1.73 sq M.predicted MDRD (S/P/Bld) [Vol rate/Area] mPort Phone: Comment on above: Average GFR for 70 o r more years old: 75 mL/min/1.73sq m Chronic Kidney Disease: <60 mL/min/1.73sq m Kidney failure: <15 mL/min/1.73sq m eGFR calculated using average adult body mass. Additional eGFR calculator available at: http://www.Prolebrity/multiple_crcl_2012.htm No Panel InformationOrdered By: Kin Abarca on 06-15-2021 mPort Phone: POC Glucose FingerstickOrder ed By: Kin Abarca on 06-15-2021 Glucose [Mass/Vol] 163 mg/dL High 65 - 105 mg/dL mPort Phone: Interpretation and review of laboratory results Abnormal mPort Phone: mPort Phone: POCT GlucoseOrdered By: Kin Abarca on 06-15-2021 Glucose [Mass/Vol] 186 mg/dL High 74 - 100 mg/dL mPort Phone: Interpretation and review of laboratory results Abnormal mPort Phone: POTASSIUM (POC)Ordered By: Yuriy Abarca on 06-15-2021 Potassium [Moles/Vol] 4.5 mmol/L 3.5 - 4.5 mmol/L mPort Phone: EKG 12 leadOrdered By: Antoni Burks on 05-13-2021 Atrial Rate 67 BPM mPort Phone: P [place] 58 degrees mPort Phone: P-R Interval 130 ms mPort Phone: Q-T Interval 504 ms mPort Phone: QRS Duration 144 ms mPort Phone: QTc Calculation (Bazett) 532 ms mPort Phone: R [place] 20 degrees mPort Phone: T [place] 117 degrees mPort Phone: Ventricular Rate 67 BPM [employer] Work Phone: Sinus rhythm with Premature atrial complexes Left bundle branch block Abnormal ECG No previous ECGs available mPort Phone: Virgilio, Mhpn Incoming E kg Results From [employer] - 05/13/2021 1:30 PM EDT Sinus rhythm with Premature atrial complexes Left bundle branch block Abnormal ECG No previous ECGs available mPort Phone: mPort Phone: Basic Metabolic Panel w/ Ref alexis to MGOrdered By: Latonia Burks on 05-12-2021 Anion gap [Moles/Vol] 13 mmol/L 9 - 17 mmol/L mPort Phone: Calcium [Mass/Vol] 9.4 mg/dL 8.6 - 10. 4 mg/dL mPort Phone: Chloride [Moles/Vol] 102 mmol/L 98 - 10 7 mmol/L mPort Phone: CO2 [Moles/Vol] 28 mmol/L 20 - 31 mmol/L mPort Phone: Creatinine [Mass/Vol] 0.94 mg/dL High 0.50 - 0.90 mg/dL mPort Phone: GFR >60 >60 mL/min [employer] Phone: GFR Non- 58 mL/min Low >60 mPort Phone: GFR/1.73 sq M.predicted MDRD (S/P/Bld) [Vol rate/Area] mPort Phone: Comment on above: Average GFR for 70 o r more years old: 75 mL/min/1.73sq m Chronic Kidney Disease: <60 mL/min/1.73sq m Kidney failure: <15 mL/min/1.73sq m eGFR calculated using average adult body mass. Additional eGFR calculator available at: http://www.Prolebrity/multiple_crcl_2012.htm GFR/1.73 sq M.predicted MDRD (S/P/Bld) [Vol rate/Area] NOT REPORTED mPort Phone: Glucose [Mass/Vol] 119 mg/dL High 70 - 99 mg/dL mPort Phone: Interpretation and review of laboratory results Abnormal mPort Phone: Potassium [Moles/Vol] 4.0 mmol/L 3.7 - 5.3 mmol/L [employer]Port Phone: Sodium [Moles/Vol] 143 mmol/L 135 - 144 mmol/L mPort Phone: Urea nitrogen (BldV) [Mass/Vol] 18 mg/dL 8 - 23 mg/dL [employer] Work Phone: Urea nitrogen/Creatinine (Bld) [Mass ratio] NOT REPORTED mPort Phone: [employer] Work Phone: CBC auto differentialOrdered By: Latonia Burks on 05-12-2021 Absolute Eos # 0.26 [employer] [facility] Work Phone: Absolute Immature Granulocyte 0.04 [employer] Work Phone: Absolute Lymph # 3.26 [employer] [facility] Work Phone: Absolute Crook # 0.84 [employer] [facility] Work Phone: Basophils (Bld) [#/Vol] 0.05 10*3/uL [employer] Work Phone: Basophils/100 WBC (Bld) 1 % 0 - 2 % mPort Phone: Differential Type NOT REPORTED mPort Phone: Eosinophils/100 WBC (Bld) 3 % 1 - 4 % mPort Phone: Hematocrit (Bld) [Volume fraction] 36.9 % 36.3 - 47.1 % mPort Phone: Hemoglobin.gastrointes tinal spec 1 Ql (Stl) 11.2 g/dL Low 11.9 - 15.1 g/dL mPort Phone: Immature granulocytes/100 WBC (Bld) 0 % 0 mPort Phone: Interpretation and review of laboratory results Abnormal mPort Phone: Lymphocytes/100 WBC (Bld) 32 % 24 - 43 % [employer] Phone: MCH (RBC) [Entitic mass] 28.3 pg 25.2 - 33.5 pg [employer] Phone: MCHC (RBC) [Mass/Vol] 30.4 g/dL 28.4 - 34.8 g/dL [employer] Phone: MCV (RBC) [Entitic vol] 93.2 fL 82.6 - 102.9 fL [employer] Phone: Monocytes/100 WBC (Bld) 8 % 3 - 12 % [employer] Phone: NRBC Automated 0.0 0.0 per 100 WBC mPort Phone: Platelet distribution width (Bld) [Ratio] 13.8 % 11.8 - 14.4 % [employer]Port Phone: Platelet Estimate NOT REPORTED mPort Phone: Platelet mean volume (Bld) [Entitic vol] 9.5 fL 8.1 - 13.5 fL [employer] Phone: Platelets (Bld) [#/Vol] 310 10*3/uL [employer] Phone: RBC (Bld) [#/Vol] 3.96 10*6/uL 3.95 - 5.1 1 m/uL [employer] Phone: RBC (Bld) [#/Vol] NOT REPORTED mPort Phone: Segmented neutrophils/100 WBC (Bld) 56 % 36 - 65 % mPort Phone: Segs Absolute 5.70 [employer] Work Phone: WBC (Bld) [#/Vol] 10.2 10*3/uL mPort Phone: WBC (Bld) [#/Vol] NOT REPORTED mPort Phone: [employer] Work Phone: XR CHEST (2 VW)Ordered By: A david Kimmie on 05-12-2021 Senescent changes compatible with the age of the patient. No evidence of acute cardiopulmonary process. mPort Phone: EXAMINATION: TWO XRA Y VIEWS OF [...] spine and visualized portions of the shoulders. mPort Phone: Virgilio, pn Incoming Radiant Results From [employer] - 05/12/2021 2:48 PM EDT EXAMINATION: TWO [...] patient. No evidence of acute cardiopulmonary process. mPort Phone: mPort Phone: Cardiovascular Lab Reporton 08-21-2020 Cardiovascular Lab Report [facility] #: [id number] Department of Physician: Jose Maria Keyes M.D. Division of Service Date: 08/20/2020 Cardiology Birthdate: 1940 Adult Cardiovascular Room #: [facility] [address] [place], [place] [address] Cardiovascular Laboratory Report INDICATION: The patient is [...] signed informed consent. She was brought to woven label designer in a fasting state. The procedure was performed under conscious sedation. A transesophageal echocardiogram was performed by Dr. Marisol Khoury at baseline. Please refer to his dictation for details. The appendage measured a maximum of 16 mm in terms of ostial width. Using ultrasound guidance and micropuncture technique, access was obtained in the right common femoral vein and a 6-Taiwanese x 11 cm sheath was placed preclosure where the 6-Taiwanese ProGlide device was performed followed by advancement [...] was exchanged over that wire to the 14-Taiwanese Watchman access sheath, which was advanced to the left atrial cavity with no issues. The 6-Taiwanese angled pigtail catheter was advanced over the [...] Trans: (more content not included)... Normal [facility] TYPE AND CROSSMATCHon 2019 ABO INTERPRETATION A Normal [facility] Comment on above: Performed By: #### [id number] #### [facility] [address] [place] [address], [facility] RH INTERPRETATION Positive Normal [facility] Comment on above: Performed By: #### [id number] #### [facility] [address] [place] [address], [facility] Vital Signs Date Time Vital Sign Value Performing Clinician Facility 06-20-2024 10:14040 Body height 152.4 cm Peyman Hensley DPM Work Phone: [facility] 06-20-2024 10:14040 Body mass index (BMI) [Ratio] 28.32 kg/m2 Peyman Hensley DPM Work Phone: [facility] 06-20-2024 10:14040 Body weight 65.77 kg Peyman Hensley DPM Work Phone: [facility] 06-20-2024 10:140400 Respiratory rate 18 /min Peyman Hensley DPM Work Phone: [facility] 05-01-2024 10:18-0400 Body height 149.86 cm MD Mateus Perry Work Phone: [facility] 05-01-2024 10:18-0400 Body mass index (BMI) [Ratio] 30.2 kg/m2 MD Mateus Perry Work Phone: [facility] 05-01-2024 10:18-0400 Body temperature 97.8 [degF] MD Mateus Perry Work Phone: [facility] 05-01-2024 10:18-0400 Body weight 68.03 kg MD Mateus Perry Work Phone: [facility] 05-01-2024 10:18-0400 Diastolic blood pressure 72 mm[Hg] MD Mateus Perry Work Phone: [facility] 05-01-2024 10:18-0400 Heart rate 80 /min MD Mateus Perry Work Phone: [facility] 05-01-2024 10:18-0400 Respiratory rate 16 /min MD Mateus Perry Work Phone: [facility] 05-01-2024 10:18-0400 SaO2% (BldA) [Mass fraction] 98 % MD Mateus Perry Work Phone: [facility] 05-01-2024 10:18-0400 Systolic blood pressure 118 mm[Hg] MD Mateus Perry Work Phone: [facility] 04-24-2024 11:13-0400 Body height 149.86 cm MD Mateus Perry Work Phone: [facility] 04-24-2024 11:13-0400 Body mass index (BMI) [Ratio] 36.3 kg/m2 MD Mateus Perry Work Phone: [facility] 04-24-2024 11:13-0400 Body weight 81.64 kg MD Mateus Perry Work Phone: [facility] 04-24-2024 11:06-0400 Body temperature 98.8 [degF] MD Mateus Perry Work Phone: [facility] 04-24-2024 11:06-0400 Diastolic blood pressure 75 mm[Hg] MD Mateus Perry Work Phone: [facility] 04-24-2024 11:06-0400 Heart rate 97 /min MD Mateus Perry Work Phone: [facility] 04-24-2024 11:06-0400 Respiratory rate 20 /min MD Mateus Perry Work Phone: [facility] 04-24-2024 11:06-0400 Systolic blood pressure 118 mm[Hg] MD Mateus Perry Work Phone: [facility] 04-10-2024 10:30-0400 Body height 149.86 cm MD Mtaeus Perry Work Phone: [facility] 04-10-2024 10:30-0400 Body mass index (BMI) [Ratio] 36.3 kg/m2 MD Mateus Perry Work Phone: [facility] 04-10-2024 10:30-0400 Body weight 81.64 kg MD Mateus Perry Work Phone: [facility] 03-26-2024 09:51-0400 Body height 149.86 cm MD Mateus Perry Work Phone: [facility] 03-26-2024 09:51-0400 Body mass index (BMI) [Ratio] 36.3 kg/m2 MD Mateus Perry Work Phone: [facility] 03-26-2024 09:51-0400 Body weight 81.64 kg MD Mateus Perry Work Phone: [facility] 03-26-2024 09:36-0400 Body temperature 97.3 [degF] MD Mateus Perry Work Phone: [facility] 03-26-2024 09:36-0400 Diastolic blood pressure 61 mm[Hg] MD Mateus Perry Work Phone: [facility] 03-26-2024 09:36-0400 Heart rate 86 /min MD Mateus Perry Work Phone: [facility] 03-26-2024 09:36-0400 Respiratory rate 18 /min MD Mateus Perry Work Phone: [facility] 03-26-2024 09:36-0400 Systolic blood pressure 128 mm[Hg] MD Mateus Perry Work Phone: [facility] 06-20-2023 15:29-0400 Body height 154.9 cm Winnie Guzmán PA-C Work Phone: [facility] 06-20-2023 15:29-0400 Body temperature 97.39 [degF] Winnie Guzmán PA-C Work Phone: [facility] 06-20-2023 15:29-0400 Body weight 84.64 kg Winnie Ramirez PA-C Work Phone: [facility] 06-20-2023 15:29-0400 Diastolic blood pressure 55 mm[Hg] Winnie Ramirez PA-C Work Phone: [facility] 06-20-2023 15:29-0400 Heart rate 72 /min Winnie Ramirez PA-C Work Phone: [facility] 06-20-2023 15:29-0400 Respiratory rate 16 /min Winnie Ramirez PA-C Work Phone: [facility] 06-20-2023 15:29-0400 SaO2% (BldA) [Mass fraction] 96 % Winnie Ramirez PA-C Work Phone: [facility] 06-20-2023 15:29-0400 Systolic blood pressure 138 mm[Hg] Winnie Ramirez PA-C Work Phone: [facility] 06-01-2023 08:45-0400 Body height 154.94 cm Christiano Gonzales Other [employer] Other 06-01-2023 08:45-0400 Body mass index (BMI) [Ratio] 34.57 kg/m2 Christiano Gonzales Other [facility] Other 06-01-2023 08:45-0400 Body temperature 97.8 [degF] Christiano Gonzales Other [facility] Other 06-01-2023 08:45-0400 Body weight 83.01 kg Christiano Gonzales Other [facility] Other 06-01-2023 08:45-0400 Diastolic blood pressure 72 mm[Hg] Christiano Gonzales Other [facility] Other 06-01-2023 08:45-0400 SaO2% (BldA) [Mass fraction] 93 % Christiano Marrerogarrick Other [facility] Other 06-01-2023 08:45-0400 Systolic blood pressure 130 mm[Hg] Christiano Marrerogarrick Other [facility] Other 03-09-2023 08:45-0400 Body height 154.94 cm Millie Storm Other [facility] Other 03-09-2023 08:45-0400 Body mass index (BMI) [Ratio] 34.57 kg/m2 Millie Faganvane Other [facility] Other 03-09-2023 08:45-0400 Body temperature 96.8 [degF] Millie Faganvane Other [facility] Other 03-09-2023 08:45-0400 Body weight 83.01 kg Millie Storm Other [facility] Other 03-09-2023 08:45-0400 Diastolic blood pressure 56 mm[Hg] Millie Faganvane Other [facility] Other 03-09-2023 08:45-0400 SaO2% (BldA) [Mass fraction] 97 % Millie Faganvane Other [facility] Other 03-09-2023 08:45-0400 Systolic blood pressure 118 mm[Hg] Millie Faganvane Other [facility] Other 02-14-2023 10:19-0400 Body height 154.9 cm Wallace Stone MD Work Phone: [facility] 02-14-2023 10:19-0400 Body temperature 97.39 [degF] Wallace Stone MD Work Phone: [facility] 02-14-2023 10:19-0400 Body weight 84.46 kg Wallace Stone MD Work Phone: [facility] 02-14-2023 10:19-0400 Diastolic blood pressure 90 mm[Hg] Wallace Stone MD Work Phone: [facility] 02-14-2023 10:19-0400 Heart rate 102 /min Wallace Stone MD Work Phone: [facility] 02-14-2023 10:19-0400 Respiratory rate 16 /min Wallace Stone MD Work Phone: [facility] 02-14-2023 10:19-0400 SaO2% (BldA) [Mass fraction] 95 % Wallace Stone MD Work Phone: [facility] 02-14-2023 10:19-0400 Systolic blood pressure 151 mm[Hg] Wallace Stone MD Work Phone: [facility] 12-07-2022 14:00-0400 Body height 154.94 cm Millie Storm Other [facility] Other 12-07-2022 14:00-0400 Body mass index (BMI) [Ratio] 35.71 kg/m2 Millie Storm Other [facility] Other 12-07-2022 14:00-0400 Body temperature 97.6 [degF] Millie Storm Other [facility] Other 12-07-2022 14:00-0400 Body weight 85.73 kg Millie Storm Other [facility] Other 12-07-2022 14:00-0400 Diastolic blood pressure 68 mm[Hg] Millie Storm Other [facility] Other 12-07-2022 14:00-0400 SaO2% (BldA) [Mass fraction] 93 % Millie Storm Other [facility] Other 12-07-2022 14:00-0400 Systolic blood pressure 116 mm[Hg] Millie Storm Other [facility] Other 11-29-2022 11:53-0400 Diastolic blood pressure 54 mm[Hg] MD Mateus Perry Work Phone: [facility] 11-29-2022 11:53-0400 Heart rate 67 /min MD Mateus Perry Work Phone: [facility] 11-29-2022 11:53-0400 Respiratory rate 16 /min MD Mateus Perry Work Phone: [facility] 11-29-2022 11:53-0400 SaO2% (BldA) [Mass fraction] 94 % MD Mateus Perry Work Phone: [facility] 11-29-2022 11:53-0400 Systolic blood pressure 141 mm[Hg] MD Mateus Perry Work Phone: [facility] 11-29-2022 09:13-0400 Body height 154.94 cm MD Mateus Perry Work Phone: [facility] 11-29-2022 09:13-0400 Body weight 81.64 kg MD Mateus Perry Work Phone: [facility] 11-23-2022 11:00-0400 Body height 154.94 cm Christiano Gonzales Other [facility] Other 11-23-2022 11:00-0400 Body temperature 97.8 [degF] Christiano Gonzales Other [facility] Other 11-23-2022 11:00-0400 Diastolic blood pressure 62 mm[Hg] Christiano Gonzales Other [facility] Other 11-23-2022 11:00-0400 SaO2% (BldA) [Mass fraction] 96 % Christiano Gonzales Other [facility] Other 11-23-2022 11:00-0400 Systolic blood pressure 110 mm[Hg] Christiano Gonzales Other [facility] Other 11-09-2022 13:44-0500 Body height 154.9 cm Wallace Stone MD Work Phone: [facility] 11-09-2022 13:44-0500 Body temperature 97.11 [degF] Wallace Stone MD Work Phone: [facility] 11-09-2022 13:44-0500 Body weight 84.73 kg Wallace Stone MD Work Phone: [facility] 11-09-2022 13:44-0500 Diastolic blood pressure 72 mm[Hg] Wallace Stone MD Work Phone: [facility] 11-09-2022 13:44-0500 Heart rate 66 /min Wallace Stone MD Work Phone: [facility] 11-09-2022 13:44-0500 Respiratory rate 18 /min Wallace Stone MD Work Phone: [facility] 11-09-2022 13:44-0500 SaO2% (BldA) [Mass fraction] 100 % Wallace Stone MD Work Phone: [facility] 11-09-2022 13:44-0500 Systolic blood pressure 142 mm[Hg] Wallace Stone MD Work Phone: [facility] 09-22-2022 11:24-0500 Body height 154.9 cm Wallace Stone MD Work Phone: [facility] 09-22-2022 11:24-0500 Body temperature 97.81 [degF] Wallace Stone MD Work Phone: [facility] 09-22-2022 11:24-0500 Body weight 84.82 kg Wallace Stone MD Work Phone: [facility] 09-22-2022 11:24-0500 Diastolic blood pressure 64 mm[Hg] Wallace Stone MD Work Phone: [facility] 09-22-2022 11:24-0500 Heart rate 70 /min Wallace Stone MD Work Phone: [facility] 09-22-2022 11:24-0500 Respiratory rate 16 /min Wallace Stone MD Work Phone: [facility] 09-22-2022 11:24-0500 SaO2% (BldA) [Mass fraction] 94 % Wallace Stone MD Work Phone: [facility] 09-22-2022 11:24-0500 Systolic blood pressure 137 mm[Hg] Wallace Stone MD Work Phone: [facility] 09-09-2022 15:06-0500 Blood Pressure Location Iliana GAGNON [facility] [place] 09-09-2022 15:06-0500 Diastolic blood pressure 68 mm[Hg] Iliana GAGNON [facility] [place] 09-09-2022 15:06-0500 Heart rate 68 /min Iliana GAG[facility] [place] 09-09-2022 15:06-0500 Respiratory rate 16 /min Iliana GAGNON [facility] [place] 09-09-2022 15:06-0500 Systolic blood pressure 130 mm[Hg] Iliana GAGNON [facility] [place] 06-28-2022 12:00-0400 SaO2% (BldA) [Mass fraction] 95 % Emma Plunkett MD Work Phone: [facility] 06-28-2022 11:50-0400 Body temperature 97.3 [degF] Emma Plunkett MD Work Phone: [facility] 06-28-2022 11:50-0400 Diastolic blood pressure 50 mm[Hg] Emma Plunkett MD Work Phone: [facility] 06-28-2022 11:50-0400 Heart rate 69 /min Emma Plunkett MD Work Phone: [facility] 06-28-2022 11:50-0400 Respiratory rate 16 /min Emma Plunkett MD Work Phone: [facility] 06-28-2022 11:50-0400 Systolic blood pressure 115 mm[Hg] Emma Plunkett MD Work Phone: [facility] 06-28-2022 07:36-0400 Body height 154.9 cm Emma Plunkett MD Work Phone: [facility] 06-28-2022 07:36-0400 Body mass index (BMI) [Ratio] 34.58 kg/m2 Emma Plunkett MD Work Phone: [facility] 06-28-2022 07:36-0400 Body weight 83.01 kg Emma Plunkett MD Work Phone: [facility] 12-13-2021 15:45-0400 Body temperature 97 [degF] Emma Plunkett MD Work Phone: [facility] 12-13-2021 15:45-0400 Diastolic blood pressure 96 mm[Hg] Emma Plunkett MD Work Phone: [facility] 12-13-2021 15:45-0400 Heart rate 65 /min Emma Plunkett MD Work Phone: [facility] 12-13-2021 15:45-0400 Respiratory rate 14 /min Emma Plunkett MD Work Phone: [facility] 12-13-2021 15:45-0400 SaO2% (BldA) [Mass fraction] 94 % Emma Plunkett MD Work Phone: [facility] 12-13-2021 15:45-0400 Systolic blood pressure 113 mm[Hg] Emma Plunkett MD Work Phone: [facility] 12-13-2021 09:46-0400 Body height 154.9 cm Emma Plunkett MD Work Phone: [facility] 12-13-2021 09:46-0400 Body mass index (BMI) [Ratio] 36.09 kg/m2 Emma Plunkett MD Work Phone: [facility] 12-13-2021 09:46-0400 Body weight 86.64 kg Emma Plunkett MD Work Phone: [facility] 12-06-2021 14:46-0400 Body height 154.9 cm Stvz 2 [facility] 12-06-2021 14:46-0400 Body mass index (BMI) [Ratio] 36.09 kg/m2 Stvz 2 [facility] 12-06-2021 14:46-0400 Body temperature 96.4 [degF] Stvz 2 [facility] 12-06-2021 14:46-0400 Body weight 86.64 kg Stvz 2 [facility] 12-06-2021 14:46-0400 Diastolic blood pressure 67 mm[Hg] Stvz 2 [facility] 12-06-2021 14:46-0400 Heart rate 62 /min Stvz 2 [employer] 12-06-2021 14:46-0400 Respiratory rate 20 /min Stvz 2 [employer] 12-06-2021 14:46-0400 SaO2% (BldA) [Mass fraction] 97 % Stvz 2 [employer] 12-06-2021 14:46-0400 Systolic blood pressure 153 mm[Hg] Stvz 2 [employer] 06-15-2021 10:14-0400 Body temperature 97.81 [degF] Kin Abarca MD Work Phone: [employer] Work Phone: 06-15-2021 10:14-0400 Diastolic blood pressure 58 mm[Hg] Kin Abarca MD Work Phone: [employer] Work Phone: 06-15-2021 10:14-0400 Heart rate 61 /min Kin Abarca MD Work Phone: [employer] Work Phone: 06-15-2021 10:14-0400 Respiratory rate 14 /min Kin Abarca MD Work Phone: [employer] Work Phone: 06-15-2021 10:14-0400 SaO2% (BldA) [Mass fraction] 96 % Kin Abarca MD Work Phone: [employer] Work Phone: 06-15-2021 10:14-0400 Systolic blood pressure 113 mm[Hg] Kin Abarca MD Work Phone: [employer] Work Phone: 06-15-2021 08:24-0400 Body height 154.9 cm Kin Abarca MD Work Phone: [employer] Work Phone: 06-15-2021 08:24-0400 Body mass index (BMI) [Ratio] 34.96 kg/m2 Kin Abarca MD Work Phone: [employer] Phone: 06-15-2021 08:24-0400 Body weight 83.92 kg Kin Abarca MD Work Phone: [employer] Phone: 05-12-2021 12:53-0400 Body height 154.9 cm Stvz 1 [employer] Phone: 05-12-2021 12:53-0400 Body mass index (BMI) [Ratio] 35.52 kg/m2 Stvz 1 [employer] Phone: 05-12-2021 12:53-0400 Body temperature 96.8 [degF] Stvz 1 [employer] Phone: 05-12-2021 12:53-0400 Body weight 85.28 kg Stvz 1 [employer] Phone: 05-12-2021 12:53-0400 Diastolic blood pressure 66 mm[Hg] Stvz 1 [employer] Phone: 05-12-2021 12:53-0400 Heart rate 57 /min Stvz 1 [employer] Phone: 05-12-2021 12:53-0400 Respiratory rate 18 /min Stvz 1 [employer] Phone: 05-12-2021 12:53-0400 SaO2% (BldA) [Mass fraction] 96 % Stvz 1 [employer] Phone: 05-12-2021 12:53-0400 Systolic blood pressure 150 mm[Hg] Stvz 1 [employer] Phone: Encounters Encounter Date Encounter Type Care [...] underlying condition with diabetic polyneuropathy, 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 senior care insulin use ([facility]); Pain due to onychomycosis of toenails of both feet Start: 06-12-2024 End: 06-12-2024 ambulatory [facility] Start: 05-27-2024 End: 05-27-2024 ambulatory [facility] Start: 05-01-2024 End: 05-01-2024 ambulatory MD Mateus Perry Work Phone: [facility] Work Phone: Start: 05-01-2024 End: 05-01-2024 Patient encounter procedure MD Mateus Perry Work Phone: [facility] Work Phone: Start: 04-24-2024 End: 04-24-2024 ambulatory MD Mateus Perry Work Phone: [facility] Work Phone: Start: 04-24-2024 End: 04-24-2024 Discharged Recurring MD Mateus Perry Work Phone: [facility] Work Phone: Start: 04-09-2024 End: 04-09-2024 Patient encounter procedure MD Mateus Perry Work Phone: [facility]Ultrasound [facility] [place] Work Phone: Start: 04-09-2024 End: 04-09-2024 ambulatory MD Mateus Perry Work Phone: [facility] Work Phone: Start: 03-26-2024 Registered Recurring MD Yvonne Perry Work Phone: [facility] Work Phone: Start: 06-20-2023 End: 06-20-2023 ambulatory WINNIE Hoa RAMIREZ Facility:[facility] Start: 06-20-2023 End: 06-20-2023 ambulatory Winnie Camara Ramirez PA-C Work Phone: Hematology/Oncology Comment on above: 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, estrogen receptor positive (HCC) (Primary Dx); Stage 3a chronic kidney disease (HCC) Start: 06-20-2023 End: 06-20-2023 Patient encounter procedure Winnie Hoa Ramirez PA-C Work Phone: [facility] Start: 06-01-2023 End: 06-01-2023 ambulatory Christiano Gonzales Other [facility] Other Start: 06-01-2023 Office outpatient vi sit 15 minutes Christiano Gnozales [facility] Start: 04-06-2023 End: 04-07-2023 ambulatory MATEUS HECTORHui [facility] Start: 03-09-2023 End: 03-09-2023 ambulatory Millie Storm Other [facility] Other Start: 03-09-2023 Patient encounter procedure Millie Storm [facility] Start: 03-06-2023 End: 03-06-2023 ambulatory EMMA GARZA V [facility] Start: 02-14-2023 End: 02-14-2023 ambulatory WALLACE STONE Facility:[facility] Start: 02-14-2023 End: 02-14-2023 ambulatory Wallace [...] 12-08-2022 End: 12-08-2022 ambulatory Millie Storm Other [facility] Other Start: 12-08-2022 Telephone encounter Millie Dc [facility] Start: 12-07-2022 End: 12-07-2022 ambulatory Millie Emeterio Other [facility] Other Start: 12-07-2022 Patient encounter procedure Millie Storm [facility] Vascular Surgery Start: 11-29-2022 End: 11-29-2022 Admission to same day surgery center MD Mateus Perry Work Phone: [facility]Interventional [facility] Work Phone: Start: 11-29-2022 End: 11-29-2022 ambulatory MD Mateus Perry Work Phone: [facility] Work Phone: Start: 11-24-2022 End: 11-25-2022 ambulatory LATONIA DENITAZAKIYA [facility] Start: 11-24-2022 End: 11-24-2022 Subsequent hospital visit by physician Mateus Perry MD Work Phone: [facility] Start: 11-23-2022 End: 11-23-2022 ambulatory Christiano Gonzales Other [facility] Other Start: 11-23-2022 Office outpatient ne w 60 minutes Christiano Gonzales [facility] Vascular Surgery Start: 11-22-2022 End: 11-23-2022 ambulatory Iliana GAGNON Facility: [place] Start: 11-16-2022 End: 11-16-[address] MATEUS PERRY . 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, estrogen receptor positive (HCC) (Primary Dx); Claudication in peripheral vascular disease (HCC) Start: 11-09-2022 End: 11-09-2022 Patient encounter procedure Wallace Stone MD Work Phone: [place] Start: 11-09-2022 Telephone encounter Wallace carolina MD [facility] Comment on above: Referral Information (Vascular Consult) Start: 11-08-2022 End: 11-09-2022 ambulatory Iliana GAGNON Facility: [place] Start: 11-08-2022 End: 11-08-2022 Patient encounter procedure Iliana GAGNON General Surgery Nill/Said [place] Start: 11-04-2022 End: 11-05-2022 ambulatory Iliana GAGNON Facility: [place] Start: 11-04-2022 End: 11-04-2022 Patient encounter procedure Iliana GAGNNO General Surgery Nill/[facility]aid [place] Start: 11-02-2022 End: 11-03-[address] MATEUS PERRY . Facility:[facility] Start: 10-25-2022 End: 10-26-2022 ambulatory Iliana GAGNON Facility: [place] Start: 10-25-2022 End: 10-25-2022 Patient encounter procedure Iliana GAGNON General Surgery Nill/Said [place] Start: 10-19-2022 End: 02-09-[address] ILIANA GAGNON . Facility:[facility] Start: 10-15-[address] ILIANA GAGNON . Facil ity:[facility] Start: 10-12-2022 Encounter for preprocedural laboratory examination DR ILIANA GAGNON . [facility] Start: 10-11-2022 End: 10-12-[address] ILIANA GAGNON . Facility:[facility] Start: 10-11-2022 End: 10-12-2022 Encounter for preprocedural laboratory examination DR ILIANA GAGNON . Facility:[facility] Start: 09-30-2022 End: 10-01-[address] MATEUS PERRY . Facility:[facility] Start: 09-22-2022 Telephone encounter Lars Wilkerson RN Work Phone: Hematology/Oncology Comment on above: Care Coordination (S urgery update) Start: 09-22-2022 End: 09-22-2022 ambulatory WALLACE STONE Facility:[facility] Start: 09-22-2022 End: 09-22-2022 ambulatory Wallace Stone MD Work Phone: Hematology/Oncology Comment on above: 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, estrogen receptor positive (HCC) (Primary Dx) Start: 09-22-2022 End: 09-22-2022 Patient encounter procedure Wallace Stone MD Work Phone: [place] Comment on above: Malignant neoplasm o f upper-outer quadrant of right breast in female, estrogen receptor positive (HCC) (Primary Dx) Start: 09-21-2022 End: 09-21-[address] MATEUS PERRY . Facility: Start: 09-19-2022 Chart abstracting Wallace messer MD Work Phone: Hematology/Oncology Start: 09-16-2022 End: 09-17-[address] DOCTOR SPEAR Facility: Start: 09-09-2022 End: 09-10-2022 ambulatory Iliana GAGNON Facility:[facility] Start: 09-09-2022 End: 09-09-2022 Patient encounter procedure Il[facility]AGNON [facility] Start: 09-05-[address] MATEUS PERRY . [...] HANK Facility:[facility] Start: 02-09-2022 End: 02-10-2022 ambulatory [facility] Facility:[facility] Start: 12-13-2021 End: 12-13-2021 Subsequent hospital visit by physician Emma Garza MD Work Phone: [facility] Comment on above: Post-operative state (Primary Dx) Start: 12-06-2021 End: 12-08-2021 Subsequent hospital visit by physician [facility] Radiology Comment on above: Arrived Start: 12-06-2021 End: 12-10-2021 Patient encounter status Stvz 2 [facility] Pre-Admit Testing Start: 12-06-2021 End: 12-10-2021 Subsequent hospital visit by physician Stsandra Pat 2 [facility] Pre-Admit Testing Comment on above: Pre-op chest exam Start: 06-15-2021 End: 06-15-2021 Subsequent hospital visit by physician iKn Abarca MD Work Phone: [facility] Start: 05-12-2021 End: 05-14-2021 Subsequent hospital visit by physician [facility] Radiology Comment on above: Arrived Start: [...] exam ches t 2 views Latonia Kimmie PA-UUSEE Work Phone: Start: 05-12-2021 Ecg routine ecg w/le ast 12 lds i&r only Latonia Kimmie PA-UUSEE Work Phone: Start: 08-20-2020 Antibody screen Comment on above: Performed By: #### 6 [id number] #### [address] Start: 01-16-2017 History of placement of [...] procedure 08/29/2024 10:00 AM EST Office Visit [facility] [address] [facility] [address] [place] [address] Peyman Hensley, DPHoa [address] [facility] [address] [place] [address] [facility] Start: 06-20-2024 Hemoglobin/Hematocrit Hemoglobin/Hem [facility] Start: 06-20-2024 Serum Creatinine Serum Creatinine [facility] Start: 05-12-2024 Influenza vaccination Influenza Vacc ine (#1) [facility] Start: 02-15-2024 HEMOGLOBIN/HEMATOCRIT HEMOGLOBIN/HEM [facility] Start: 02-15-2024 SERUM CREATININE SERUM CREATININE [facility] Start: 06-16-2023 End: 08-16-2023 CBC W Auto Differential panel - Blood CBC + DIFF Lab Routine 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, estrogen receptor positive (HCC) Expected: 06/16/2023 (Approximate), Expires: 08/16/2023 [facility] Work Phone: Comment on above: Expected: 06/16/2023 (Approximate), Expires: 08/16/2023 Start: 06-16-2023 End: 08-16-2023 Comprehensive metabolic 2000 panel - Serum or Plasma COMP METABOLIC PANEL Lab Routine 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, estrogen receptor positive (HCC) Expected: 06/16/2023 (Approximate), Expires: 08/16/2023 [facility] Work Phone: Comment on above: Expected: 06/16/2023 (Approximate), Expires: 08/16/2023 Start: 05-12-2023 Covid-19 Vaccine ( season) Covid-19 Vaccine () [facility] Start: 05-12-2023 Influenza vaccination [facility] Start: 04-12-2023 End: 04-12-2023 Patient encounter procedure 04/12/2023 Office Visit Gynecologic Oncology Latonia Brush PA-C [address] [place], [place] [id number] [facility] Start: 02-09-2023 End: 04-11-2023 CBC W Auto Differential panel - Blood CBC + DIFF Lab Routine 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, estrogen receptor positive (HCC) Expected: 02/09/2023 (Approximate), Expires: 04/11/2023 [facility] Work Phone: Comment on above: Expected: 02/09/2023 (Approximate), Expires: 04/11/2023 Start: 02-09-2023 End: 04-11-2023 Comprehensive metabolic 2000 panel - Serum or Plasma COMP METABOLIC PANEL Lab Routine 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, estrogen receptor positive (HCC) Expected: 02/09/2023 (Approximate), Expires: 04/11/2023 [facility] Work Phone: Comment on above: Expected: 02/09/2023 (Approximate), Expires: 04/11/2023 Start: 12-13-2022 Potassium monitoring Potassium monit [facility] Start: 12-06-2022 Creatinine measurement Creatinine mo [facility] Start: 12-06-2022 [address] Potassium monit [facility] Start: 11-29-2022 End: 11-29-2022 [facility] Start: 09-11-2022 ADVANCE DIRECTIVE DISCUSSION ADVANCE DIRECTIVE DISCUSSION [facility] Start: 09-11-2022 DEPRESSION ASSESSMENT DEPRESSION ASS ESSMENT [facility] Start: 07-27-2022 End: 07-27-2022 Patient encounter procedure 07/27/2022 Office Visit Gynecologic Oncology Emma Garza MD [address] [place] [address] [facility] Start: 06-28-2022 End: 06-28-2022 VULVA VAGINAL CERVIX LESION EXCISION LASER VULVA VAGINAL CERVIX LESION EXCISION LASER Vaginal dysplasia 06/28/2022 9:04 AM EDT [facility] Start: 06-15-2022 Creatinine measurement Creatinine mo [facility] Work Phone: Start: 06-15-2022 [address] Potassium monit [facility] Work Phone: Start: 05-12-2022 Creatinine measurement Creatinine mo [facility] [employer] Phone: Start: 05-12-2022 Influenza vaccination INFLUENZA (#1) [facility] Start: 05-12-2022 [address]assium monitoring Potassium monit [facility] Work Phone: Start: 04-11-2022 Influenza vaccination Flu vaccine (# 1) [facility] Start: 01-14-2022 End: 01-14-2022 Patient encounter procedure 01/14/2022 Office Visit Gynecologic Oncology Latonia Burks PA-C [address] [address] [address] [place] [address] [facility] Start: 12-13-2021 End: 12-13-2021 VAGINECTOMY [facility] Start: 12-13-2021 End: 12-13-2021 Admission to same day surgery center [facility] Comment on above: VAGINECTOMY, CYSTOSC OPY CYSTOSCOPY, VAGINECT PATY Start: 12-13-2021 Subsequent hospital visit by physician 12/13/2021 Hospital Encounter IP Unit Emma Graza MD [address] [facility] [address] [place] [address] [facility] OR Start: 12-13-2021 End: 12-13-2021 Vaginectomy complete removal vaginal wall VAGINECTOMY VAGINAL DYSPLASIA, RULE OUT CANCER 12/13/2021 10:20 AM EDT [facility] Start: 10-31-2021 Annual Wellness Visi t (AWV) Annual Wellness Visit (AWV) [facility] Start: 10-15-2021 COVID-19 VACCINE (4 - Booster for Moderna series) COVID-19 VACCINE (4 - Booster for Moderna series) [facility] Start: 07-01-2021 End: 07-01-2021 Patient encounter procedure 07/01/2021 Office Visit Gynecologic Oncology Kin Abarca MD [address] [facility] [address] [place] [address] [phone] [facility] Start: 05-12-2021 Influenza vaccination Flu vaccine (# 1) [facility] Work Phone: Start: 04-05-2021 COVID-19 Vaccine (3 - Booster for Moderna series) COVID-19 Vaccine (3 - Booster for Moderna series) [facility] Start: 10-29-2020 Hemoglobin A1c/Hemoglobin.total in Blood HBA1C [facility] Start: 01-19-2018 Pneumococcal Vaccine : 65+ (2 - PCV) Pneumococcal Vaccine: 65+ (2 - PCV) [facility] Start: 01-19-2018 Pneumococcal Vaccine : 65+ Years (2 of 2 - PCV) Pneumococcal Vaccine: 65+ Years (2 of 2 - PCV) [facility] Start: 01-19-2018 PNEUMOCOCCAL: 65+ (2 - PCV) PNEUMOCOCCAL: 65+ (2 - PCV) [facility] Start: 2007 BONE DENSITY BONE DENSITY [facility] Start: 2007 Bone Density Screening Bone Density Screening [facility] Start: 2007 Pneumococcal 65+ yea rs Vaccine (1 - PCV) Pneumococcal 65+ years Vaccine (1 - PCV) [facility] Start: 2007 Pneumococcal 65+ yea rs Vaccine (1 of 1 - PPSV23) Pneumococcal 65+ years Vaccine (1 of 1 - PPSV23) [facility] Start: 2002 Hepatitis B Vaccine (1 of 3 - Risk 3-dose series) Hepatitis B Vaccine (1 of 3 - Risk 3-dose series) [facility] Start: 1997 Screening for osteoporosis DEXA (modify frequency per FRAX score) [facility] Start: 1992 Shingles Vaccine (1 of 2) Shingles Vaccine (1 of 2) [facility] Start: 1992 SHINGRIX VACCINE (1 of 2) SHINGRIX VACCINE (1 of 2) [facility] Start: 1961 DTaP/Tdap/Td vaccine (1 - Tdap) DTaP/Tdap/Td vaccine (1 - Tdap) [facility] Start: 1961 Urine microalbumin profile [facility] Start: 1960 ANNUAL PCP TEAM [employer] USAMA DISEASE VISIT ANNUAL PCP TEAM CHRONIC DISEASE VISIT [facility] Start: 1960 BP CONTROLLED (<130/80) BP CON TROLLED (<130/80) [facility] Start: 1960 Hepatitis B surface antibody level LDL CHOLESTEROL [facility] Start: 1960 Hepatitis C screening [facility] Start: 1954 Depression Screen Depression Screen [facility] Start: 1952 3 comp foot exam completed DIABETIC FOOT EXAM [facility] Start: 1952 Hepatitis B screening URINE ALBUMIN:CREATININE RATIO [facility] Start: 1952 Hepatitis C antibody , confirmatory test DILATED RETINAL EXAM [facility] Start: 1952 Lipid panel [facility] Start: 1942 Hepatitis C screening Hepatitis C [facility] EKG 12 Lead EKG 12 Lead ECG STAT 06/28/2022 7:29 AM EDT [employer] Phone: End: 12-13-2021 INITIATE PACU OXYGEN THERAPY PROTOCOL Initiate PACU Oxygen Therapy Protocol Respiratory Care Routine Continuous until discontinued starting 12/13/2021 [employer] Phone: Comment on above: Continuous until dis continued starting 12/13/2021 End: 06-28-2022 INITIATE PACU OXYGEN THERAPY PROTOCOL Initiate PACU Oxygen Therapy Protocol Respiratory Care Routine Continuous until discontinued starting 06/28/2022 [employer] Phone: Comment on above: Continuous until dis continued starting 06/28/2022 End: 07-19-2024 MAGNO DIAGNOSTIC BILATERAL [facility] Radiology Routine 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, estrogen receptor positive (HCC) 1 Occurrences starting 06/20/2023 until 07/19/2024 [facility] Work Phone: Comment on above: 1 Occurrences starti ng 06/20/2023 until 07/19/2024 Patient referral [facility] Work Phone: Spirometry panel Incentive viktoriya metry Respiratory Care Routine Every 2hr while awake until discontinued starting 12/13/2021 [employer] Phone: Comment on above: Every 2hr while awak e until discontinued starting 12/13/2021 Surgical Pathology Surgical Path ology Lab Routine Release Upon Ordering for 1 Occurrences starting 06/15/2021 [employer] Phone: Comment on above: Release Upon Orderin g for 1 Occurrences starting 06/15/2021 Surgical Pathology Surgical Path ology Lab Routine Release Upon Ordering for 1 Occurrences starting 12/13/2021 [employer] Phone: Comment on above: Release Upon Orderin g for 1 Occurrences starting 12/13/2021 Surgical Pathology Surgical Path ology Lab Routine Vaginal dysplasia Release Upon Ordering for 1 Occurrences starting 06/28/2022 [employer] Phone: Comment on above: Release Upon Orderin g for 1 Occurrences starting 06/28/2022 End: 06-28-2022 SURGICAL PATHOLOGY REPORT SURGICAL PATHOLOGY REPORT Lab Routine Once for 1 Occurrences starting 06/28/2022 until 06/28/2022 [employer] Phone: Comment on above: Once for 1 Occurrenc es starting 06/28/2022 until 06/28/2022 End: 11-24-2022 SURGICAL PATHOLOGY REPORT SURGICAL PATHOLOGY REPORT Lab Routine Once for 1 Occurrences starting 11/24/2022 until 11/24/2022 [employer] Phone: Comment on above: Once for 1 Occurrenc es starting 11/24/2022 until 11/24/2022 [facility] Immunizations Immunization Date Immunization Notes Care Provider Fa [facility] 07-12-2022 influenza virus vacc ine, unspecified formulation Iliana CHELSI [facility] 08-20-2021 SARS-CoV-2 (COVID-19 ) [id number] vaccine Iliana DORANNikolai [facility] 07-01-2021 influenza (HD-IIV4) vaccine, age 65+ yr, high dose, quadrivalent, PF (FLUZONE HIGH-DOSE) Wallace Stone MD Work Phone: [facility] 07-01-2021 influenza virus vacc ine, unspecified formulation Winnie Guzmán PA-C Work Phone: [facility] 11-06-2020 COVID-19, Moderna, P F, 100mcg/0.5mL Stv Xr [facility] 10-09-2020 COVID-19, Moderna, P F, 100mcg/0.5mL Stv Xr [facility] Work Phone: 06-10-2020 Seasonal trivalent influenza vaccine, adjuvanted, preservative free Wallace Stone MD Work Phone: [facility] 06-07-2017 influenza, high dose seasonal, preservative-free Wallace Stone MD Work Phone: [facility] 01-19-2017 pneumococcal polysaccharide vaccine, 23 valyvonne Stone MD Work Phone: [facility] 06-29-2015 influenza, high dose seasonal, preservative-free Wallace Stone MD Work Phone: [facility] 06-23-2014 influenza, high dose seasonal, preservative-free Wallace Stone MD Work Phone: [facility] 06-15-2010 pneumococcal polysaccharide vaccine, 23 valyvonne Stone MD Work Phone: [facility] 06-27-2007 influenza virus vacc ine, whole virus Wallace Stone MD Work Phone: [facility] Payers Date Payer Category Payer Self-pay [id number] 2007 Medicare [id number] 2007 Unknown [id number] 2007 Unknown [id number] 1959 Medicare [id number] 5 1959 Self-pay [id number] 1959 Unknown [id number] 2.16.8 40.1.831274.19 1942 Unknown [id number] 2.16.84 0.1.069140.3.579.2.593 1942 Unknown [id number] 2.16.84 0.1.244228.3.579.2.593 1942 Unknown [id number] 2.16.84 0.1.501709.3.579.2.593 1942 Unknown [id number] 2.16.84 0.1.256995.3.579.2.593 1942 Unknown [id number] 2.16.84 0.1.866392.3.579.2.593 1942 Unknown [id number] 2.16.84 0.1.072848.3.579.2.593 1942 Unknown [id number] 2.16.84 0.1.124162.3.579.2.593 1942 Unknown [id number] 2.16.84 0.1.599430.3.579.2.593 1942 Unknown [id number] 2.16.84 0.1.629565.3.579.2.593 1942 Unknown [id number] 2.16.84 0.1.420115.3.579.2.593 1942 Unknown [id number] 2.16.84 0.1.258645.3.579.2.593 1942 Unknown [id number] 2.16.84 0.1.338402.3.579.2.593 1942 Unknown [id number] 2.16.84 0.1.788591.3.579.2.593 1942 Unknown [id number] 2.16.84 0.1.078402.3.579.2.593 1942 Unknown [id number] 2.16.84 0.1.802482.3.579.2.593 1942 Unknown [id number] 2.16.84 0.1.718221.3.579.2.593 1942 Unknown [id number] 2.16.84 0.1.431925.3.579.2.593 1942 Unknown [id number] 2.16.84 0.1.893133.3.579.2.593 1942 Unknown [id number] 2.16.84 0.1.625782.3.579.2.593 1942 Unknown [id number] 2.16.84 0.1.300115.3.579.2.593 1942 Unknown [id number] 2.16.84 0.1.251280.3.579.2.593 1942 Unknown [id number] 2.16.84 0.1.799453.3.579.2.593 1942 Unknown [id number] 2.16.84 0.1.355405.3.579.2.593 1942 Unknown [id number] 2.16.84 0.1.223662.3.579.2.593 1942 Unknown [id number] 2.16.84 0.1.383349.3.579.2.593 1942 Unknown [id number] 2.16.84 0.1.377878.3.579.2.593 1942 Unknown [id number] 2.16.84 0.1.436934.3.579.2.593 1942 Unknown [id number] 2.16.8 40.1.286285.3.579.2.727 1942 Unknown [id number] 2.16.8 40.1.676766.3.579.2.727 1942 Unknown [id number] 2.16.8 40.1.655147.3.579.2.727 1942 Unknown [id number] 2.16.8 40.1.934864.3.579.2.727 1942 Unknown [id number] 2.16.8 40.1.032220.3.579.2.727 1942 Unknown [id number] 2.16.8 40.1.028384.3.579.2.727 1942 Unknown [id number] 2.16.8 40.1.455449.3.579.2.727 1942 Unknown [id number] 2.16. 840.1.317658.3.579.2.175 1942 Unknown [id number] 2.16. 840.1.280881.3.579.2.175 1942 Unknown [id number] 2.16. 840.1.946973.3.579.2.175 1942 Unknown [id number] 2.16.84 0.1.145394.3.579.2.1259 Medicare Medicare Outpatient [id number] [id number] Unknown [id number] 2.16.8 40.1.885970.3.579.2.531 Unknown [id number] 2.16.8 40.1.221678.3.579.2.531 Social History Date Type Detail Facility Start: 05-12-2021 End: 06-20-2024 Tobacco smoking status NHIS Former smoker [employer] Phone: Start: 09-11-1962 End: 06-28-2018 History of tobacco use Current smoker [employer] Start: 09-11-1962 End: 06-28-2018 History of tobacco use Cigarette Smoker [employer] Start: 05-12-2021 End: 06-20-2024 Tobacco use and exposure Never used [employer] Start: 05-12-2021 End: 11-24-2022 Alcohol intake Ex-drinker (finding) [employer] Phone: Start: 1940 Sex Assigned At Not on file [facility] Phone: Start: 11-26-2021 End: 06-24-2022 Exposure to SARS-CoV-2 (event) Not sure [employer] Start: 06-15-2021 End: 06-20-2024 Cigarettes smoked current (pack per day) - Reported [facility] History of tobacco use Passive smoker [facility] [employer] Phone: Tobacco smoking status Never [facility] Start: 02-14-2023 End: 06-20-2024 Sex Assigned At Female [facility] Start: 09-19-2022 End: 02-14-2023 Alcohol intake Current non-drinker of alcohol (finding) [facility] Start: 1940 Sex Assigned At Female F [facility] Tobacco smoking stat [facility] Tobacco smoking consumption unknown [facility] Start: 06-20-2024 Alcoholic beverage intake Lifetime non-drinker (finding) [facility] Medical Equipment Procedure Code Equipment Code [...] Facility 09-09-2022 Functional Status N/A [facility] Clinical Notes 05-12-2021 to 06-20-2024 Peyman Hensley, [...] 2 months after hitting object. Currently [facility] every 3 weeks with application [...] Partner Violence: Unknown (11/02/2023) Received from [facility], [facility] [place] [facility] [employer] Environment Fear of Current [...] and negative PT pedal pulses NEURO: 5.07 [place] Sybil monofilament test intact to digits and forefoot bilaterally 125Hz tuning fork diminished to 1st MPJ bilaterally ORTHO: Positive pain on palpation to nails 1 through 10 Positive pain palpation left anterior braun ASSESSMENT 1. Venous insufficiency 2. Hav (hallux abducto valgus), left 3. Acquired deformity of left toe 4. 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 ([facility]) 5. Diabetes mellitus due to underlying condition with diabetic polyneuropathy, 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 intermediate frame tender insulin use ([facility]) 6. Pain due to onychomycosis of toenails [...] DSD applied . Patient currently has the [facility] wound center applying Medih[employer] every other day. Did discuss possibility if no improvement to contact Podiatry for advanced wound care treatments or if any signs of infection Peyman Hensley DPM documented in this encounter [facility] 06-12-2024 Note [place] [facility] - [facility] Subjective Harman Mcleod is a 83 y.o. year old female patient being seen for follow up echo performed on 06/04/2024. Denies chest pain, SOB, and palpitations. Feels good but is tired today. BP at home was 107/71 today and yesterday 114/55. Patient Active Problem List Diagnosis Angina pectoris (CMS/HCC) Atherosclerosis of ak chin coronary artery of [place] chin heart without angina pectoris Dyslipidemia Dyspnea Gastroesophageal [...] alert and orie (more content not included)... [facility] 05-27-2024 Note Remains on ASA No c/o angina or concerns [facility] 05-27-2024 Note As above [facility] 05-27-2024 Note [id number]= 6-7 at least with Age, Sex, CHF, CAD/Vascular disease, HTN, DM Currently per assessment she appears to be in rhythm heart rate well-controlled with metoprolol 200 mg daily and she remains on Eliquis anticoagulation without any bleeding tendencies or concerns. [facility] 05-27-2024 Note Lipid abnormalities are elevated therefore will increase zocor to 40 mg daily. Will repeat lipid level and liver function in 2-3 months [facility] 05-27-2024 Note Congestive heart ivanemily todd is stable without worsening symptoms [facility] II -currently patient is euvolemic without exacerbation. She has returned home from prison facility and presents today with granddaughter who [...] helps prevent rehospitalization for heart failure exacerbation [facility] 05-27-2024 Note Hypertension current ly is well-controlled at 106/67 Continue amlodipine, hydralazine, Imdur, Toprol and spironolactone Currently renal function normal, no acute concerns. [facility] 05-27-2024 Note Coronary artery dise ase [...] exercise as tolerated and continue all medications. [facility] 05-27-2024 Note [facility] CARDIOLOGY PROGR ESS [...] fluid overload-of which she was discharged to prison facility until this past December. She has [...] systems reviewed and are negative Admit to [facility] 02/13/24 DC Summary DS: Summary [...] 81 mg by mouth. fish oil concentrate (Roland-3) 120-180 mg capsule Take 1,000 mg by [...] 112 mcg tabl (more content not included)... [facility] 05-27-2024 Note Pt is here for a one year follow up. Pt denies chest pain, palpatations, sob. Review of Systems All other systems reviewed and are negative. [facility] 04-10-2024 Progress note Note Date/Time April 10, 2024 10:30am [facility] [address] [place] [address] Wound Center Provider Note Signed Patient: Harman Mcleod MR#: [id number] : 1940 Acct:[id number] Age/Sex: 83 / F Copies to: MD Janell Oliver APRN~ HPI Date of Visit Date of Visit: Date of Service: 04/10/2024 Time of Service: 10:26 Narrative HPI: 12/11/23 Harman is an 83 year old presenting to [facility] wound care for an initial visit for [...] [facility] for the entire visit, [facility] the left leg will be treated with [...] wrapped again today for good measure and [facility] can remove next week and start stockings or wraps if something is open on the legs, family and friend present for the visit, does not need to return to the office unless new ulcers do develop, spoke about her getting established with a emergency management program specialist and so hopefully she will follow through [...] to go to the ED per the [facility] nurse but she had refused this and [...] bilateral lower leg ulcers Mode of Arrival/ Manager Strategy: Friend Assistive Device Used Today: Walker Lives with:: Significant Other Appetite Description: Within Normal Limits Who helps w/ dressing change?: Home Health Why Do You Need Help?: Can't Reach Ulcer, Limited mobility, Unsafe leave home byself and Taxing effort to leave home Smoking Status: Former smoker [facility] Medical History (Updated 04/10/24 @ 10:30 by Janell Mathews APRN) Leg ulcer, left Cataract Problem List clean-up per request of Phys. 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 [facility] Vaginal lesion Problem List clean-up per [...] List clean-up per request of Phys. EHR [facility] Surgical History History of bladder suspension procedure Problem List clean-up per request of Phys. EHR [facility] H/O: hysterectomy Problem List clean-up per request of Phys. EHR [facility] History of appendectomy Problem List clean-up per request of Phys. EHR [facility] History of heart artery stent Problem List clean-up per request of Phys. EHR [facility] Family History (Updated 06/01/23 @ 08:45 [...] DAILY 04/25/19 [History Confirmed 12/11/23] omega-3s 300 de-jrz-rwn-other daaza1t-stlu oil 1,000 mg capsule (Roland-3 Fish Oil) 2 cap PO BID 04/25/19 [...] Stasis Ulcer Thickness: Skin Breakdown Bed Appearance: Kinsey Percent of Wound Bed Granulated/Red: 100 Percent [...] <Electronically signed by FERNY Mathews> 04/10/24 [address] [facility] Work Phone: 1(117) 851-152707-16-2024 Progress note Author Janell Mathews [facility] March 26, 2024 9:51am Note Date/Time March 26, 2024 9:51 am [facility] [address] [place] [address] Wound Center Provider Note Signed Patient: Harman Mcleod MR#: [id number] : 1940 Acct:[id number] Age/Sex: 83 / F Copies to: MD Janell Oliver APRN~ HPI Date of Visit Date of Visit: Date of Service: 03/26/2024 Time of Service: 09:47 Narrative HPI: 12/11/23 Harman is an 83 year old presenting to [facility] wound care for an initial visit for [...] present for the entire visit, she has [facility], the left leg will be treated [...] wrapped again today for good measure and [facility] can remove next week and start stockings or wraps if something is open on the legs, family and friend present for the visit, does not need to return to the office unless new ulcers do develop, spoke about her getting established with a emergency management program specialist and so hopefully she will follow through [...] to go to the ED per the [facility] nurse but she had refused this and [...] bilateral lower leg ulcers Mode of Arrival/ Manager Strategy: Friend Assistive Device Used Today: Walker Lives with:: Significant Other Appetite Description: Within Normal Limits Who helps w/ dressing change?: Home Health Why Do You Need Help?: Can't Reach Ulcer, Limited mobility, Unsafe leave home byself and Taxing effort to leave home Smoking Status: Former smoker [facility] Medical History (Updated 02/13/24 @ 10:54 by [...] List clean-up per request of Phys. [facility]HR [facility] Surgical History History of bladder suspension procedure Problem List clean-up per request of Phys. EHR Cmte H/O: hysterectomy Problem List clean-up per request of Phys. EHR Cmte History of appendectomy Problem List clean-up per request of Phys. EHR Cmte History of heart artery stent Problem List clean-up per request of Phys. [facility] Family History (Updated 06/01/23 @ 08:45 [...] DAILY 04/25/19 [History Confirmed 12/11/23] omega-3s 300 nd-nev-leq-other qfjvz7u-baca oil 1,000 mg capsule (Roland-3 Fish Oil) 2 cap PO BID 04/25/19 [...] Breakdown Bed Appearance: Epithelial Tissue or Bridge, Kinsey and Yellow Percent of Wound Bed Granulated/Red: [...] <Electronically signed by FERNY Mathews> 03/26/24 [address] [facility] Work Phone: 1(803) 867-634906-04-2024 Progress note Author Janell Mathews [facility] February 13, 2024 10:55am Note Date/Time February 13, 2024 10:55 am [facility] [address] [place] [address] Wound Center Provider Note Signed Patient: Harman Mcleod MR#: [id number] : 1940 Acct:[id number] Age/Sex: 83 / F Copies to: MD Janell Oliver APRN~ HPI Date of Visit Date of Visit: Date of Service: 02/13/2024 Time of Service: 10:47 Narrative HPI: 12/11/23 Harman is an 83 year old presenting to [facility] wound care for an initial visit for [...] present for the entire visit, [facility], the left leg will be treated with [...] spoke about her getting established with a emergency management program specialist and so hopefully she will follow through [...] to go to the ED per the [facility] nurse but she had refused this and wanted to come to this appt instead Subjective Pain Left Leg: Pain Description: Intermittent Pain Intensity: 0 Wound/Ulcer History When did wound start?: August 2023 bilateral lower leg ulcers Mode of Arrival/ Manager Strategy: Friend Assistive Device Used Today: Walker Lives with:: Significant Other Appetite Description: Within Normal Limits Who helps w/ dressing change?: Home Health Why Do You Need Help?: Can't Reach Ulcer, Limited mobility, Unsafe leave home byself and Taxing effort to leave home Smoking Status: Former smoker [facility] Medical History (Updated 02/13/24 @ 10:54 by [...] List clean-up per request of Phys. EHR [facility] Diabetes mellitus Problem List clean-up per request of Phys. EHR Cmte Hypertension Problem List clean-up per request of Phys. EHR [facility] Surgical History History of bladder suspension procedure Problem List clean-up per request of Phys. EHR [facility] H/O: hysterectomy Problem List clean-up per request of Phys. EHR [facility] History of appendectomy Problem List clean-up per request of Phys. EHR [facility] History of heart artery stent Problem List clean-up per request of Phys. EHR [facility] Family History (Updated 06/01/23 @ 08:45 [...] DAILY 04/25/19 [History Confirmed 12/11/23] omega-3s 300 se-ydw-evq-other ilbna6c-oknc oil 1,000 mg capsule (Roland-3 Fish Oil) 2 cap PO BID 04/25/19 [...] Posterior Thigh: Bed Appearance: Beefy Red and Kinsey Percent of Wound Bed Granulated/Red: 0 Percent [...] <Electronically signed by FERNY Mathews> 02/13/24 [address] [facility] Work Phone: 1(377) 216-515805-21-2024 Progress note Author Janell Mathews [facility] January 30, 2024 10:44am Note Date/Time January 30, 2024 10:44 am [facility] [address] [place] [address] Wound Center Provider Note Signed Patient: Harman Mcleod MR#: [id number] : 1940 Acct:[id number] Age/Sex: 83 / F Copies to: MD Janell Oliver APRN~ HPI Date of Visit Date of Visit: Date of Service: 01/30/2024 Time of Service: 10:37 Narrative HPI: 12/11/23 Harman is an 83 year old presenting to [facility] wound care for an initial visit for [...] present for the entire visit, [facility], the left leg will be treated with [...] spoke about her getting established with a emergency management program specialist and so hopefully she will follow through [...] bilateral lower leg ulcers Mode of Arrival/ Manager Strategy: Friend Assistive Device Used Today: Walker Lives with:: Significant Other Appetite Description: Within Normal Limits Who helps w/ dressing change?: Home Health Why Do You Need Help?: Can't Reach Ulcer, Limited mobility, Unsafe leave home byself and Taxing effort to leave home Smoking Status: Former smoker [facility] Medical History (Updated 01/30/24 @ 10:43 by [...] List clean-up per request of Phys. EHR [facility] Diabetes mellitus Problem List clean-up per request of Phys. EHR [facility] Hypertension Problem List clean-up per request of Phys. EHR [facility] Surgical History History of bladder suspension procedure Problem List clean-up per request of Phys. EHR [facility] H/O: hysterectomy Problem List clean-up per request of Phys. EHR [facility] History of appendectomy Problem List clean-up per request of Phys. EHR [facility] History of heart artery stent Problem List clean-up per request of Phys. EHR [facility] Family History (Updated 06/01/23 @ 08:45 [...] DAILY 04/25/19 [History Confirmed 12/11/23] omega-3s 300 gj-rni-rmd-other pohwu3l-oaef oil 1,000 mg capsule (Roland-3 Fish Oil) 2 cap PO BID 04/25/19 [...] Posterior Thigh: Bed Appearance: Beefy Red and Kinsey Percent of Wound Bed Granulated/Red: 100 Percent [...] <Electronically signed by FERNY Mathews> 01/30/24 [address] [facility] Work Phone: 1(405) 504-946304-18-2024 Progress note Author Janell Mathews [facility] December 28, 2023 11:22am Note Date/Time December 28, 2023 11: 22am [facility] [address] [place] [address] Wound Center Provider Note Signed Patient: Harman Mcleod MR#: [id number] : 1940 Acct:[id number] Age/Sex: 83 / F Copies to: MD Janell Oliver APRN~ HPI Date of Visit Date of Visit: Date of Service: 12/28/2023 Time of Service: 11:19 Narrative HPI: 12/11/23 Harman is an 83 year old presenting to [facility] wound care for an initial visit for [...] present for the entire visit, she has [facility], the left leg will be [...] wrapped again today for good measure and [facility] can remove next week and start stockings or wraps if something is open on the legs, family and friend present for the visit, does not need to return to the office unless new ulcers do develop, spoke about her getting established with a emergency management program specialist and so hopefully she will follow through on that, spoke about compression socks too forlong term use Subjective Pain Left Leg: Pain Intensity: 0 Wound/Ulcer History When did wound start?: August 2023 bilateral lower leg ulcers Mode of Arrival/ Manager Strategy: Friend Assistive Device Used Today: Walker Lives with:: Significant Other Appetite Description: Within Normal Limits Who helps w/ dressing change?: Home Health Why Do You Need Help?: Can't Reach Ulcer, Limited mobility, Unsafe leave home byself and Taxing effort to leave home Smoking Status: Former smoker [facility] Medical History (Updated 12/11/23 @ 09:30 by [...] DAILY 08/15/19 [History Confirmed 12/11/23] omega-3s 300 de-muf-axi-other mzmzx6b-mvue oil 1,000 mg capsule (Roland-3 Fish Oil) 2 cap PO BID 04/25/19 [...] <Electronically signed by FERNY Mathews> 12/28/23 112[address] [facility] Work Phone: 1(298) 119-998604-01-2024 Progress note Author Janell Mathews [facility] December 11, 2023 9:35am Note Date/Time December 11, 2023 9:35 am [facility] [address] [place] [address] Wound Center Provider Note Signed Patient: Harman Mcleod MR#: [id number] : 1940 Acct:[id number] Age/Sex: 83 / F Copies to: MD Janell Oliver APRN~ HPI Date of Visit Date of Visit: Date of Service: 12/11/2023 Time of Service: 09:27 Narrative HPI: 12/11/23 Harman is an 83 year old presenting to [facility] wound care for an initial visit for [...] present for the entire visit, she has [facility], the left leg will be [...] bilateral lower leg ulcers Mode of Arrival/ Manager Strategy: Friend Assistive Device Used Today: Walker Lives with:: Significant Other Appetite Description: Within Normal Limits Who helps w/ dressing change?: Home Health Why Do You Need Help?: Can't Reach Ulcer, Limited mobility, Unsafe leave home byself and Taxing effort to leave home Smoking Status: Former smoker [facility] Medical History (Updated 12/11/23 @ 09:30 by [...] List clean-up per request of Phys. [facility]HR [facility] History of heart artery stent Problem List clean-up per request of Phys. [facility] Family History (Updated 06/01/23 @ 08:45 [...] DAILY 04/25/19 [History Confirmed 12/11/23] omega-3s 300 jc-coo-dmz-other halwv9t-obye oil 1,000 mg capsule (Roland-3 Fish Oil) 2 cap PO BID 04/25/19 [...] Breakdown Bed Appearance: Epithelial Tissue or Bridge, Kinsey and Yellow Percent of Wound Bed Granulated/Red: [...] By: <Electronically signed by FERNY Mathews> 12/11/23934 [facility] Work Phone: 1(544) 276-512910-10-2023 NoteHNO ID: [id number] Author: Winnie Guzmán PA-C Service: ? Author Type: Physician Model And Pattern Supervisor Type: Progress Notes Filed: 06/20/2023 3:58 PM Note Text: PATIENT NAME: Haramn Mcleod CLINIC NO.: [id number] ATTENDING PHYSICIAN: Wallace Stone MD DATE OF [...] 6.4 10/24/2017 7.3 Al (more content not included)...[facility]10-10-2023 Nurse Note * Lina Lopes MA - 06/20/2023 2:49 PM EDT Patient would like to know if she needs a mammogram? She was told in Oct that she would need one in6 months. Lina Lopes MA [facility] History of Present illness Narrative* Winnie Guzmán PA-C - 06/20/2023 2:30 PM EDT Images from the original note were not included. PATIENT NAME: Harman Mcleod CLINIC NO.: [id number] ATTENDING PHYSICIAN: Wallace Stone MD DATE OF [...] Range Status 06/20/2023 4.8 % Final Abs Crook Date Value Ref Range Status 06/20/2023 0.49 [...] Dr. 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 She declined. I will see her as needed in the future. [facility] Other 06-29-2023 Evaluation note* Encounter Date Diagnosis [...] to call us with any concerns whatsoever. [facility] 06-06-2023 NoteHNO ID: [id number] Author: Wallace Stone MD Service: ? Author Type: Physician Type: Progress Notes Filed: 02/14/2023 10:49 AM Note Text: PATIENT NAME: Harman Mcleod CLINIC NO.: [id number] ATTENDING PHYSICIAN: Wallace Stone MD DATE OF [...] 04/28/2020 1.12 BUN (mg/dL) (more content not included)...[facility]06-06-2023 History of Present illness Narrative* Wallace Stone MD - 02/14/2023 10:37 AM EDT Images from the original note were not included. PATIENT NAME: Harman Mcleod CLINIC NO.: [id number] ATTENDING PHYSICIAN: Wallace Stone MD DATE OF SERVICE: February 14, 2023 Some of the elements of this note have been copied from my previous progress note dated 11/09/2022. All the information has been reviewed carefully. Dear Dr. Perry referring provider defined for this encounter. here is an update on a follow up visit on female Haramn Mcleod at the clinic February 14, 2023 [...] Range Status 02/14/2023 8.3 % Final Abs Crook Date Value Ref Range Status 02/14/2023 0.86 [...] Dr. 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 If there are any questions and or concerns please do not hesitate to contact me at [phone]. Wallace Stone MD Hematology/Medical Oncology [facility] I spent a total of 30 minutes on the date of the service which included preparing to see the patient, pnpc-sq-opqf patient care, completing clinical documentation, obtaining and/or reviewing separately obtained history, performing a medically appropriate examination, counseling and educating the pat ient/family/caregiver, and ordering medications, tests, or procedures. 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 We will continue to follow her along and see her again in a couple of months and see how she is doing with her pumps, conservative efforts, and weight management. She knows to call us in the meantime with any other additional concerns or complaints. [facility] 03-21-2023 [facility]* Encounter Date Diagnosis Assessment [...] specified soft tissue disorders (ICD-10 - M79.89) [facility] Other 03-08-2023 Miscellaneous Notes* Telephone Encounter - Adriana Pereira Pss - 11/16/2022 8:40 AM EST Called Vascular office spoke with Jessy. They have received this referral and have patient scheduledwith Dr Gonzales on 11/23 @ 10:00. Adriana Pereira Pss * Telephone Encounter - Kiar Ko [facility] - 11/10/2022 9:38 AM EST Records faxed. Electronically signed by Kira Ko [facility] at 11/10/2022 9:38 AM EST * Telephone Encounter - Adriana Pereira [facility] - 11/10/2022 8:46 AM EST Janeth: Information ready for you. Adriana Pereira Pss * Telephone Encounter - Carlos Brooks - 11/09/2022 2:44 PM EST Vascular Consult [facility] Previous patient of Dr. Mendez 3 years or more. Janeth/Dudley: Can you please refer patient and follow up? Thanks! Carlos Brooks documented in this encounterCrystal Clinic [facility] Center03-01-2023 NoteHNO ID: [id number] Author: Wallace Stone MD Service: ? Author Type: Physician Type: Progress Notes Filed: 11/09/2022 2:24 PM Note Text: PATIENT NAME: Harman Mcleod CLINIC NO.: [id number] ATTENDING PHYSICIAN: Wallace Stone MD DATE OF [...] Value 0 (more content not included)...[facility] [id number] History of Present illness Narrative* Wallace Stone MD - 11/09/2022 2:00 PM EST Images from the original note were not included. PATIENT NAME: Harman Mcleod CLINIC NO.: [id number] ATTENDING PHYSICIAN: Wallace Stone MD DATE OF [...] Dr. 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 If there are any questions and or concerns please do not hesitate to contact me at [phone]. Wallace Stone MD Hematology/Medical Oncology [facility] [place] spent a total of 30 minutes on the date of the service which included preparing to see the patient, qhww-ik-fspb patient care, completing clinical documentation, obtaining and/or reviewing separately obtained history, performing a medically appropriate examination, counseling and educating the pat ient/family/caregiver, and ordering medications, tests, or procedures. CC: MD Mateus Spicer MD documented in this encounterCrystal Clinic Orthopedic Center02-08-2023 NoteOPERATIVE NOTE OPERATION DATE: 10/19/2022 PREOPERATIVE DIAGNOSIS: Right breast cancer. POSTOPERATIVE DIAGNOSIS: Right breast cancer. PROCEDURE: Needle localized right breast lumpectomy with sentinel lymph node biopsy. SURGEON: Iliana Gagnon M.D. ANESTHESIA: General laryngeal mask airway. LINT CLEANER: SDAI Hammer ESTIMATED BLOOD LOSS: Less than 20 [...] in good condition. CC: Mateus Perry M.D.[facility] [id number] NoteEXAMINATION: XR CHEST 2 V HISTORY: Pre-surgery [...] Electronically authenticated by: ALFONSO GEORGE Date: 2022-10-11 12:11[facility]01-13-2023 NoteHNO ID: [id number] Author: Marcin Shah MD Service: ? Author Type: Physician Type: Progress Notes Filed: 2022 6:06 AM Note Text: Radiation Oncology - New Patient/Consult Note PATIENT NAME: Harman Mcleod PATIENT REQUESTING PHYSICIAN: Dr. 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 PATIENT IDENTIFICATION: This patient was seen in the Department of Radiation Oncology at the [facility] with Marcin Shah MD. She was accompanied today by her family. Final recommendations will be communicated back to the requesting physician by way of the shared medical record, or letter to requesting physician via US mail. HISTORY OF PRESENT ILLNESS: Ms. Mcleod is an 82-year-old woman from [place], [place] who was discovered on screening mammogram [...] acetaminophen (TYLENOL EXTRA STRENGTH (more content not included)...[facility]01-12-2023 History of Present illness Narrative* Marcin Shah MD - 09/22/2022 11:38 PM EST Images from the original note were not included. Radiation Oncology - New Patient/Consult Note PATIENT NAME: Harman Mcleod PATIENT Signed: Marcin Shah MD I spent a total of 60 minutes on the date of the service which included preparing to see the patient, jzww-aq-swjm patient care, and counseling and educating the patient/family/caregiver. This document has been created with the use of voice recognition technology. It may contain inaccuracies, misspellings, inaccurate syntax or inappropriate word context that are a result of the inadequacies/shortcomings of said technology/software. documented in this encounterCrystal Clinic Orthopedic Center01-12-2023 NoteHNO ID: [id number] Author: Wallace Stone MD Service: ? Author Type: Physician Type: Progress Notes Filed: 09/22/2022 5:19 PM Note Text: PATIENT NAME: Harman Mcleod CLINIC NO.: [id number] ATTENDING PHYSICIAN: Wallace Stone MD DATE OF SERVICE: September 22, [address] Iliaan Gagnon, thank you for referring Mrs Harman [...] score of 1+ and [facility]. This patient was subsequently referred to Dr. Iliana Gagnon for surgical consultation. Patient denies any previous history of abnormal mammograms and or breast biopsy. She has had a recent bone density in [place] and was diagnosed with osteoporosis and started on Prolia as well. Patient has a sister who was diagnosed with breast cancer at the age of 82 and her daughter diagnosed with breast cancer at the age of 37. She quit smoking approximately 4 years ago. 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 She [...] mouth daily at bedtime. Cut in half Xpfuf-7-UHG-EPA-Fish Oil 1,000 mg (120 mg-180 mg) cap [...] mellitus, type 2) (HCC) (more content not included)...[facility]01-12[facility] History of Present illness Narrative* Wallace Stone MD - 09/22/2022 5:10 PM EST Images from the original note were not included. PATIENT NAME: Harman Mcleod [facility] NO.: [id number] ATTENDING PHYSICIAN: Wallace Stone MD DATE OF [...] score of 1+ and FISH negative [facility]. This patient was subsequently referred to Dr. Iliana Gagnon for surgical consultation. Patient denies any previous history of abnormal mammograms and or breast biopsy. She has had a recent bone density in [place] and was diagnosed with osteoporosis and started on Prolia as well. Patient has a sister who was diagnosed with breast cancer at the age of 82 and her daughter diagnosed with breast cancer at the age of 37. She quit smoking approximately 4 years ago. 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 She [...] mouth daily at bedtime. Cut in half Skjkv-0-JLM-EPA-Fish Oil 1,000 mg (120 mg-180 mg) cap [...] me to participate in Mrs. Harman Mcleod [facility], ifthere are any questions or concerns please do not hesitate to contact me at the number below. Wallace Stone M.D. Hematology/Medical Oncology [facility] [phone] CC: MD Mateus Spicer MD I spent a total of 60 minutes on the date of the service which included preparing to see the patient, uhrc-je-rflw patient care, completing clinical documentation, obtaining and/or reviewing separately obtained history, performing a medically appropriate examination, counseling and educating the pat ient/family/caregiver, ordering medications, tests, or procedures, and communicating with other HCPs (not separately reported). documented in this encounterCrystal Clinic Orthopedic Center01-12-2023 Miscellaneous Notes* Telephone Encounter - Lars [...] involved. Lars Wilkerson RN documented in this encounterCrystal Clinic Orthopedic Center12-30-2022 NoteChief Complaint consultation for right breast cancer [...] gms IV prior to OR SCDs Ordered: [facility] External Ambulatory Referral [facility] External Ambulatory Referral 2. 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 Garza. 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 Care instructions adapted under license by [employer]. If you have questions about a medical condition or this instruction, always ask your healthcare professional. [employer] disclaims any warranty or liability for your [...] urinate call your doctor documented in this [facility] Work Phone: 1(326) 974-829603-28-2022 History of Present illness Narrative* YANA Wallis [...] Disease: Yes, stents x 3, Dr. Keyes ([facility]) Hypertension: yes Active smoker: Quit 2017, [...] pcp potassium 3.3,wbc 12.6 documented in this [facility] Phone: 1(244) 945-277103-25-2022 Hospital Discharge instructions* Instructions* Yoanna Diaz PA [...] drive you home after your procedure. Your minibus driver must be 18 years of age [...] questions, call the Pre-Admission Testing Unit at [phone]. Day of Surgery/Procedure As a patient at [facility] you can expect quality medical and nursing care that is centered on your individual needs. Our goal is to make your surgical experience as comfortableas possible . Directions to the Surgery Center [facility] is located at [address] [place] [address]. Please pull into the Emergency parking lot and stop at the recruitment director richards. We offer free recruitment director service for all our surgery patients, if you choose not to have recruitment director parking we have additional parking across the street.You will enter the facility following the [facility] sign. Please stop at the medical receptionist medical assistant desk where you will be checked in by the staff. If you have any questions please call [phone]. Transportation after your procedure. You will need a friend or family member to drive you home after your procedure. Your minibus driver must be18 years of age or [...] You may shave your face or neck. [place] your teeth but do not swallow water. [...] or the day of surgery, please call [phone], or [phone] documented in this [facility] Phone: [phone]) 239-302610-05-2021 History of Present illness Narrative* Parvin Rogel RN - 06/15/2021 10:[address] Kamla gan, pt cleared for phase II * Alla Dickerson DO - 06/15/2021 9:42 AM EDT OB Resident Progress Note Patient may be discharged home once she has met criteria in the PACU. Please perfect serve or page CREDIT REPORTING CLERK resident listed below with any questions, concerns, or if patient has not met PACU discharge criteria in 2-3 hours. . Please page first. Alla Dickerson DO CREDIT REPORTING CLERK Resident PGY3 Pager: [phone] [facility] 06/15/2021, 9:42 AM documented in this encountermPort Phone: [phone]) 208-189710-04-2021 Hospital Discharge instructions* Instructions* Alla Dickerson DO [...] cleared by your physician documented in this encountermPort Phone: 1(674) 776-527609-01-2021 Hospital Discharge instructions* Instructions* Na Cabezas APRN [...] public transportation ALONE is not acceptable. -Your minibus driver must be 18 years of age [...] Day of Surgery/Procedure As a patient at [facility] you can expect quality medical and nursing care that is centered on your individual needs. Our goal is to make your surgical experience as comfortableas possible . Directions to the Surgery Center [facility] is located at [address] [place] [address]. Please pull into the Emergency/Surgery Center parking lot and stop at the recruitment director richards. We offer free recruitment director service for all our surgery patients, if you choose not to have recruitment director parking we have additional parking across the [...] pharmacy bottles in a zip lock bag. [place] your teeth but do not swallow water. [...] DAY OF your surgery, you may call [phone] documented in this [employer] Phone: 1(937) 857-248809-01-2021 History of Present illness Narrative* Mandy Baker [...] Pedal edema Pneumonia PVD (peripheral vascular disease) ([facility]) Thyroid disease Under care of team 05/12/2021 dr Perry [facility]-last visit apr 2021 Under care of team 05/12/2021 cardi[facility] Varicose vein of leg [...] outside provider), cardiac stentx 3. Last saw trash collector supervisor in December 2020. On Eliquis and aspirin prescribed from her trash collector supervisor. Medical or cardiac clearance ordered: cardiac FERNY Andres CNP 05/12/21 2:43 PM documented in this encounterC[facility] [employer] Work Phone: evaluation + Plan noteGeneral Surgery [place] Evaluation + Plan note Future Appointments Appointment Date:11/08/2022 02:00:00 PM Scheduled Provider:Iliana GAGNON MD Location:[facility] Appointment Type:[facility] 15 General Surgery [place] Evaluation + Plan note Future Appointments Appointment Date:11/22/2022 01:40:00 PM Scheduled Provider:Iliana GAGNON MD Location:[facility] Appointment Type:[place] [id number] General Surgery [place] evaluation note* Diagnosis Pre-op chest exam Pre-operative respiratory examination documented in this encounter [employer] Phone: evaluation note* Diagnosis S/p Partial vaginectomy with Ultrasonic Scalpel 06/15/21- 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, 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 documented in this encounter [employer] Phone: evaluation note* Diagnosis Pre-op chest exam Pre-operative respiratory examination documented in this encounter [employer] 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 documented in this encounter [employer] Phone: evaluation note* Diagnosis 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, estrogen receptor positive (HCC)- Primary documented in this encounter [facility] [place] [facility]* Diagnosis 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 breast in female, estrogen receptor positive (HCC)- Primary documented in this encounter [facility] [place] [facility]* Diagnosis 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, estrogen receptor positive (HCC)- Primary Stage 3a chronic kidney disease (HCC) documented in this encounter [facility]* Diagnosis Onset Date Resolution Status Altered mental status acute Diabetes mellitus acute Edema of both lower legs acu te Inflammation acute Leg ulcer, left acute Leg wound, right acute Open wound of left thigh acu te Uses walker acute Varicose veins of both legs with edema acute [facility] Work Phone: Evaluation note* Diagnosis Onset Date Resolution Status Altered mental status acute Diabetes mellitus acute Edema of both lower legs acu te Inflammation acute Leg ulcer, left acute Leg wound, right acute Open wound of left thigh acu te PAD (peripheral artery disease) acute Uses walker acute Varicose veins of both legs with edema acute [facility] Work Phone: Evaluation note* Diagnosis Hav (hallux abducto valgus), left- Primary Venous insufficiency Unspecified venous (peripheral) insufficiency Acquired deformity of left toe 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 ([facility]) Diabetes mellitus due to underlying condition with diabetic polyneuropathy, 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 intermediate frame tender insulin use ([facility]) Pain due to onychomycosis of toenails of both feet documented in this encounter [facility] HealthcareHistory general Narrative - Reported* Type Description Date Medical History DIABETES Medical History HTN Medical History ASTHMA Medical History 3 HEART STENT AND 1 LEG Medical History HYPERLIPIDEMIA Medical History HYPOTHYROID Medical History PAD Surgical History STENT PLACEMENTS Surgical History PSEUDO ANURYSM Surgical History BLADDER SUSPENSION Surgical History HYSTERECTOMY Surgical History RLE & RT RENAL DSA'S, ANGIOPLAS TIES & STENTING 04-25-2019 [facility] Other History general Narrative - Reported* Type [...] History VAGINAL ABLASION OF CANCER CELL S [facility] Other Hospital course Narrative No data available for this section General Surgery [facility] Discharge instructions No data available for this section General Surgery [facility] Progress note No data available for this section General Surgery [facility] Reason for referral (narrative) Referred by: Iliana GAGNON MD Referred by: Iliana GAGNON MD General Surgery [facility] Repxqr for referral (narrative)* Diagnostic Procedure Only (Routine) - Pending Review Specialty Diagnoses / Procedures Referred By Jacinta fernandez Referred To Contact [facility] Diagnoses 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, estrogen receptor positive (HCC) Procedures [facility]NO DIAGNOSTIC BILATERAL DIAGNOSTIC MAMMOGRAPHY COMPUTER-AIDED DETCJ Winnie Guzmán PA-C [address] [place] [address] [place] [address] [facility] [address] [place] [address] Referral ID Status Reason Start Date Expiration Date Visits Requested Visits Authorized [id number] Pending Review Auto-Generat ed Referral 3 07/19/2024 1 1 [facility] for visit Narrative* Auth/Cert Specialty Diagnoses / Procedures Referred By Jacinta fernandez Referred To Contact Diagnoses Vaginal dysplasia VAGINAL DYSPLASIA Procedures NV OFFICE/OUTPT VISIT,PROCEDURE ONLY NV COMPLETE REMOVAL OF VAGINA WALL NV CYSTOURETHROSCOPY CYSTOSCOPY, VAGINECTOMY Emma Garza MD [address] [facility] [address], [facility] [place] [address] [employer] [address] [place] [address] Referral ID Status Reason Start Date Expiration Date Visits Re quested Visits Authorized [id number] 1 1 [employer] Phone: Summary Purpose Family History Relationship Condition Age at Onset Recorded Date/T josephine father Unknown mother Unknown Advance Directives Latest Code Status on File Code Status Date Activated Date Inactivated Comments Full Code 06/28/2022 6:57 AM Documents on File Type Date Recorded 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 Expl anation Advance Directive(s) 01/16/2017 3:59 PM Documents on File Type Date Recorded 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 Expl anation Advance Directive(s) 01/16/2017 3:59 PM [...] [address] [place] [address] Specialty Diagnoses / Procedures Referred By Contac t Referred To Contact Cardiology Diagnoses Pre-op chest exam Procedures EKG 12 lead Kimmie, [place], PA-C [address] [place] [address] Referral ID Status Reason Start Date Expiration Date Visits Re quested Visits Authorized [id number] Open 11/22/2021 11/22/2022 1 1 Specialty Diagnoses / Procedures Referred By Contac t Referred To Contact Vascular Surgery Diagnoses Claudication in peripheral vascular disease (HCC) Procedures CONSULT TO VASCULAR SURGERY OFFICE/OUTPATIENT [facility]3] 60-74 MINUTES Wallace Stone MD [address] [place] [address] Referral ID Status Reason Start Date Expiration Date Visits Requested Visits Authorized [id number] Authorized PCP Requested Referral 11/16/2022 11/09/2023 1 1 Specialty Diagnoses / Procedures Referred By Contac t Referred To Contact Dermatology Diagnoses Rash Other eczema Procedures CONSULT TO DERMATOLOGY OFFICE/OUTPATIENT [facility]3] 60-74 MINUTES Wallace Stone MD [address] [place] [address] Referral ID Status Reason Start Date Expiration Date Visits Requested Visits Authorized [id number] Authorized PCP Requested Referral 02/14/2023 02/14/2024 1 [...] and content) DATE CREATED AUTHOR 02/05/2021 [facility] DATE CREATED AUTHOR AUTHOR'S ORGANIZ ATION 01/22/2023 [facility] DATE CREATED AUTHOR AUTHOR'S ORGANIZ ATION 06/22/2023 [facility] DATE CREATED AUTHOR AUTHOR'S ORGANIZ ATION 06/23/2023 [facility] DATE CREATED AUTHOR AUTHOR'S ORGANIZ ATION 07/13/2023 [facility] DATE CREATED AUTHOR AUTHOR'S ORGANIZ ATION 05/03/2024 [facility] DATE CREATED AUTHOR AUTHOR'S ORGANIZ ATION 06/14/2024 [facility] DATE CREATED AUTHOR AUTHOR'S ORGANIZ ATION 06/22/2024 [facility] EPIC Reason for Visit (unrecogniz ed section and content) Status Reason Specialty Diagnoses / Procedures Re ferred By Contact Referred To Contact Diagnoses 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 Procedures NV REMOVE VAGINA WALL, PARTIAL NV COLPOSCOPY,CERVIX W/ADJ VAGINA PARTICAL VAGINECTOMY WITH ULTRASONIC SCAPEL VAGINAL COLPOSCOPY WITH MICROSCOPE Kin Abarca MD [address] [facility] [address] [address] [facility] Specialty Diagnoses / Procedures Referred By Contac t Referred To Contact Diagnoses Vaginal dysplasia VAGINAL DYSPLASIA Procedures NV OFFICE/OUTPT VISIT,PROCEDURE ONLY NV DESTRUCT,VAGINAL LESION(S),SIMPLE CO2 LASER VAPORIZATION OF LESIONS (FORT CONF# [id number] - JEREMIAS) Emma Garza MD [address] [facility] [address] [place] [address] [facility] [address] [place] [address] Referral ID Status Reason Start Date Expiration Date Visits Re quested Visits Authorized [id number] 1 Reason Comments Care Coordination Surgery [...] 25 g 1 06/28/2022 bacitracin-polymyxin b (POLYSPORIN) [id number] UNIT/GM ointment Apply topically 2 times daily. [...] g 0 06/28/2022 06/28/2022 bacitracin-polymyxin b (POLYSPORIN) [id number] UNIT/GM ointment Apply topically 2 times daily. [...] Attending Provider Active art: March 26, 2024 Network Control Technician Relationship Specialty Start Date End Date Mateus Perry MD [address] [place] [address] PCP - General Family Medicine 03/04/21 Network Control Technician Relationship Specialty Start Date End Date Mateus Perry MD [address] [place] [facility] [address] PCP - General Family Medicine 03/04/21 Network Control Technician Relationship Specialty Start Date End Date Mateus Perry MD [address] [place] [facility] [address] PCP - General Family Medicine 03/04/21 Network Control Technician Relationship Specialty Start Date End Date Mateus Perry MD [address] [place] [facility] [address] PCP - General Family Medicine 03/04/21 Network Control Technician Relationship Specialty Start Date End Date Mateus Perry MD PCP - General Family Medicine 01/05/17 Network Control Technician Relationship Specialty Start Date End Date Mateus Perry MD PCP - General Family Medicine 01/05/17 Network Control Technician Relationship Specialty Start Date End Date Mateus Perry MD PCP - General Family Medicine 01/05/17 Network Control Technician Relationship Specialty Start Date End Date Mateus Perry MD PCP - General Family Medicine 01/05/17 Network Control Technician Relationship Specialty Start Date End Date Mateus Perry MD PCP - General Family Medicine 01/05/17 Network Control Technician Relationship Specialty Start Date End Date Mateus Perry MD PCP - General Family Medicine 01/05/17 Network Control Technician Relationship Specialty Start Date End Date Mateus Peryr MD [address] [place] [facility] [address] PCP - General Family Medicine 03/04/21 Team Status: Inactive Member Role Status Dates Mateus Perry MD Primary Care Provider Active Christiano Gonzales MD Attending Provider Active Network Control Technician Relationship Specialty Start Date End Date Mateus Perry MD PCP - General Family Medicine 01/05/17 Network Control Technician Relationship Specialty Start Date End Date Mateus Perry MD PCP - General Family Medicine 01/05/17 Team Status: Inactive Member Role Status Dates Mateus Perry MD Primary Care Provider Active Start: May 01, 2024 End: May 01, 2024 Christiano Gonzales MD Attending Provider Active Start: May 01, 2024 End: May 01, 2024 Network Control Technician Relationship Specialty Start Date End Date Mateus Perry MD [address] [place] [address] [phone] PCP - General Family Medicine 02/14/24 Network Control Technician Relationship Specialty Start Date End Date Mateus Perry MD [address] [place] [address] PCP - General Family Medicine 02/14/24 Source Comments (unrecognize d section and content) In the event this informatio n is protected by the Federal Confidentiality of Alcohol and Drug Abuse Patient Records regulations: The Federal rules restrict any use of the information to criminally investigate or prosecute any alcohol or drug abuse patient.[facility] Center[facility] the event this information is protected by the Federal Confidentiality of Alcohol and Drug Abuse Patient Records regulations: The Federal rules restrict any use of the information to criminally investigate or prosecute any alcohol or drug abuse patient.[facility] Center[facility] the event this information is protected by the Federal Confidentiality of Alcohol and Drug Abuse Patient Records regulations: The Federal rules restrict any use of the information to criminally investigate or prosecute any alcohol or drug abuse patient.[facility] the event this information is protected by the Federal Confidentiality of Alcohol and Drug Abuse Patient Records regulations: The Federal rules restrict any use of the information to criminally investigate or prosecute any alcohol or drug abuse patient.[facility] Center[facility] the event this information is protected by the Federal Confidentiality of Alcohol and Drug Abuse Patient Records regulations: The Federal rules restrict any use of the information to criminally investigate or prosecute any alcohol or drug abuse patient.[facility] Center[facility] the event this information is protected by the Federal Confidentiality of Alcohol and Drug Abuse Patient Records regulations: The Federal rules restrict any use of the information to criminally investigate or prosecute any alcohol or drug abuse patient.[facility] Center[facility] the event this information is protected by the Federal Confidentiality of Alcohol and Drug Abuse Patient Records regulations: The Federal rules restrict any use of the information to criminally investigate or prosecute any alcohol or drug abuse patient.[facility] Center[facility] the event this information is protected by the Federal Confidentiality of Alcohol and Drug Abuse Patient Records regulations: The Federal rules restrict any use of the information to criminally investigate or prosecute any alcohol or drug abuse patient.[facility] Goals (unrecognized section and content) Goals [...] BE BASED ON THE PRIMARY CLINICAL RECORDS. [employer] [facility]. provides no warranty or guarantee of the accuracy or completeness of information in this document.
--- OUTSIDE RECORDS SUMMARY | 2024-06-26 09:59 | XMS_ITS | CCD ---
Author Organization [facility] CliniSysd Care Team Providers Care Paid Intern Name Role Phone Mateus Perry MD Primary Care Provider Mateus Perry Primary Care Physician [phone] Mateus Perry MD Primary Care Provider [phone] Mateus Perry MD Primary Care Provider [phone] Mateus Perry Primary Care Provider [phone] Christiano Gonzales Attending Provider [phone] Christiano Gonzales Unavailable [phone] Millie Storm Unavailable SONALI MCKINNEY Admitting [...] Unavailable HOY ., DR IGNACIO Consulting Unavailable [place], DR JUDSON Plunkett Consulting Unavailable MISC, DR [...] HOY ., DR IGNACIO Primary Care Unavailable [place], DR JUDSON Plunkett Consulting Unavailable NILL ., [...] Unavailable HOY ., DR IGNACIO Consulting Unavailable [place], DR JUDSON Plunkett Consulting Unavailable HOY ., [...] Care Provider [phone] FERNY Mathews Attending Provider [phone] MD Mateus Perry Primary Care Provider [phone] FERNY Mathews Attending Provider [phone] Mateus Perry Primary Care Unavailable Janell Mathews Admitting Unavailable Janell Mathews Attending Unavailable Mateus Perry Primary Care Unavailable Janell Mathews Admitting Unavailable Janell Mathews Attending Unavailable JOSE MARIA KEYES Attending Unavailable CHERYL FARIA Attending Unavailable PEYMAN HENSLEY Attending Unavailable Mateus Perry MD Primary Care Provider [phone] Allergies Allergy Classification Reported Allergen(s) Allergy Type Date of Onset Reaction(s) Facility (18 sources) Acetaminophen / oxyCODONE; 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: [OXYCODONE-ACETAM INOPHEN] Drug Allergy 3 Other (See Comments), Intolerance, GI Upset [facility] (20 sources) Ciprofloxacin; 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: [ciprofloxacin] Drug Allergy 8 Hives, Urticaria (disorder), Other: See Comments [facility] (20 sources) oxyCODONE; 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: [oxycodone] Drug Allergy 9 Rash, Itching (finding) [facility] (19 sources) cefdinir; 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: [cefdinir] Drug Allergy 3 Vomiting (disorder), Other: See Comments, Vomiting, Other (See Comments) [facility] [place] (10 sources) traMADol; 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: [TRAMADOL] Drug Allergy 3 Mental Status Change, Other (See Comments) [facility] (1 source) Cefuroxime Drug Allergy 2 [facility] Work Phone: (5 sources) Acetaminophen; 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: [acetaminophen] Drug Allergy 9 [facility] (2 sources) Acetaminophen / oxyCODONE Drug Allergy 3 [facility] (1 source) Cefuroxime Drug Allergy 2 [facility] (2 sources) Ciprofloxacin Drug Allergy [facility] (1 source) cefdinir Drug Allergy 4 [facility] (1 source) Ciprofloxacin Drug Allergy 4 [facility] (1 source) oxyCODONE Drug Allergy 4 [facility] (1 source) traMADol Drug Allergy 4 [facility] Medications [...] Polymyxin-class Antibacterial Start: End: bacitracin-polymyxin b (POLYSPORIN) 500-79062 UNIT/GM ointment Apply topically 2 times daily. [...] take 1 capsule by mouth twice daily [place] 3 1000 MG CAPS Take 1,000 mg by mouth 2 times daily 0 Active End: 05-12-2021 take 1 capsule by mouth once daily [place]-3 Fatty Acids (FISH OIL [place]ME[place]-3) 1000 MG CAPS Take 1,000 mg by mouth daily 0 05/12/2021 Discontinued docusate sodium 50 mg / sennosides, longterm 8.6 mg oral tablet (2 sources) Start: [...] 12:00am Start: 09-02-2022 take 2 tablets by [facility] once daily Cytomel 5 mcg Tab 10 mcg = 2 tab(s), Oral, Daily, Refills(s) 0 Start Date: 09/02/22 Status: Ordered take 2 tablets by [facility] once daily liothyronine (Cytomel) 5 MCG tablet Take 2 tablets by mouth Daily Active take 1 tablet by [facility] every twenty-four hours Liothyronine Sodium 5 [...] sources) Polyene Antifungal Start: 06-28-2022 nystatin (MYCOSTATIN) 438679 UNIT/GM powder Apply 3 times daily. 60 g 10 06/28/2022 Active nystatin (MYCOST ATIN) 340506 UNIT/GM powder Apply topically 2 times daily as needed 0 Active Muwor-7k-Yes-Epa-Fish Oil ([place]-3 Fish Oil) 300-1,000 mg Capsule (4 sources) Start: 04-25-2019 Wumwp-0c-Ztp-Epa-Fish Oil ([place]-3 Fish Oil) 300-1,000 mg Capsule Active 2 [...] by mouth 4 times daily 0 Active Cabrh-9-EAV-EPA-Fish Oil 1,000 mg (120 mg-180 mg) cap (8 sources) take 1 capsule by mouth twice daily Bxpee-4-NNW-EPA-Fish Oil 1,000 mg (120 mg-180 mg) cap [...] Comment on above: TAKE 1 TABLET BY [facility] THREE TIMES A DAY DO NOT [...] Onset: 09-09-2022 Episodic Other aftercare (1 source) 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; 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: [PILATES COORDINATOR CURRNT USE ANTICOAGULANTS] Onset: 11-03-2022 Episodic Other aftercare (1 source) [facility] (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 oral hypoglycemic drugs; 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: [DETENTION USE ORAL HYPOGLYCEMIC DX] Onset: 11-03-2022 Episodic Other aftercare (1 source) 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; 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: [OTH DETENTION CURRENT DRUG THERAPY] Onset: 11-03-2022 Episodic Other [...] Onset: 08-13-2022 Episodic Other aftercare (1 source) 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; 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: [DETENTION CURRENT USE OF ASPIRIN] Onset: 08-25-2022 Episodic [...] Range Facility Office Visiton 06-12-2024 Follow-up visit [id number] Harman Mcleod 1940 Date Provider Department Center 06/12/2024 JOSE MARIA GARCIA CORI Orozco Family History Problem Relation Age of Onset Stroke Mother Coronary artery disease Father Heart attack Father Family Status - Relation Status Age at Mother Father Level of Service:74906 [place] OFFICE/OUTPATIENT ESTABLISHED HIGH MDM 40 MIN Normal [facility] 36on 06-10-2024 36 Pt informed hoys office updated Normal [facility] 37on 05-27-2024 37 Increase Zocor/simvastatin to 40 mg daily- from 20 mg for better cholesterol control Have blood drawn in 2-3 months for liver function and lipid levels- you must be fasting to have drawn Normal [facility] Office Visiton 05-27-2024 Follow-up visit [id number] Harman Mcleod 1940 Date Provider Department Center 05/27/2024 MITCH CHERYL CORI Orozco Family History Problem Relation Age of Onset Stroke Mother Coronary artery disease Father Heart attack Father Family Status - Relation Status Age at Mother Father Level of Service:16339 [place] OFFICE/OUTPATIENT ESTABLISHED LOW MDM 20 MIN Normal [facility] US ankle/arm indiceson 04-09 US ankle/arm indices [facility] [place] [address] Ultrasound Report Signed Patient: Harman Mcleod MR#: [id number] : 1940 Acct:[id number] Age/Sex: 83 / F ADM Date: 04/09/24 Loc: Room: Type: [facility] Attending Dr: Janell Mathews APRN Ordering [...] 140 Signed By: 04/09/24 1402 Normal [facility] US venous duplex LE BIon US venous duplex LE BI [facility] [place] [address] [place] [address] Ultrasound Report Signed Patient: Harman Mcleod MR#: [id number] : 1940 Acct:[id number] Age/Sex: 83 / F ADM Date: 04/09/24 Loc: Room: Type: [facility] Attending Dr: Janell Mathews APRN Ordering [...] 04/09/24 1359 Signed By: 04/09/24 1401 Normal [facility] Consultation Noteon 06-21-20 Consultation Note [id number] 0TIFF Normal [facility] CBC W Auto Differential pane l (Bld)on 06-20-2023 Basophils (Bld) [#/Vol] 0.03 10*3/uL Normal <0.11 [facility] Comment on above: Order Comment: Speci men Type: BLOOD SPECIMENOrdering Facility: [facility] Address: [address] [place] [address] Performed By: #### 5 7021-8 ####[facility] LABCLIA [id number] [place] [address] Basophils/100 WBC (Bld) 0.3 % Normal [facility] Comment on above: Order Comment: Speci men Type: BLOOD SPECIMENOrdering Facility: [facility] Address: [address] [place] [address] Performed By: #### 5 7021-8 ####[facility] LABCLIA [id number] [place] [address] Differential cell count method Nom (Bld) Auto Normal [facility] Comment on above: Order Comment: Speci men Type: BLOOD SPECIMENOrdering Facility: [facility] Address: [address] [place] [address] Performed By: #### 5 7021-8 ####[facility] LABCLIA [id number] [place] [address] Eosinophils (Bld) [#/Vol] 10*3/uL Normal <0.46 [facility] Comment on above: Order Comment: Speci men Type: BLOOD SPECIMENOrdering Facility: [facility] Address: [address] [place] [address] Performed By: #### 5 7021-8 ####[facility] LABCLIA [id number] [place] [address] Eosinophils/100 WBC (Bld) 0.2 % Normal [facility] Comment on above: Order Comment: Speci men Type: BLOOD SPECIMENOrdering Facility: [facility] Address: [address] [place] [address] Performed By: #### 5 7021-8 ####[facility] LABCLIA [id number] [place] [address] Erythrocyte distribution width (RBC) [Ratio] 14.4 % Normal 11.5-15.0 [facility] Comment on above: Order Comment: Speci men Type: BLOOD SPECIMENOrdering Facility: [facility] Address: [address] [place] [address] Performed By: #### 5 7021-8 ####[facility] LABCLIA [id number] [place] [address] Hematocrit (Bld) [Volume fraction] 34.9 % Low 36.0-46.0 [facility] Comment on above: Order Comment: Speci men Type: BLOOD SPECIMENOrdering Facility: [facility] Address: [address] [place] [address] Performed By: #### 5 7021-8 ####[facility] LABCLIA [id number] [place] [address] Hemoglobin (Bld) [Mass/Vol] 10.9 g/dL Low 11.5-15.5 [facility] Comment on above: Order Comment: Speci men Type: BLOOD SPECIMENOrdering Facility: [facility] Address: [address] [place] [address] Performed By: #### 5 7021-8 ####[facility]CLIA [id number] [place] [address] Immature granulocytes (Bld) [#/Vol] 0.11 10*3/uL High <0.10 [facility] Comment on above: Order Comment: Speci men Type: BLOOD SPECIMENOrdering Facility: [facility] Address: [address] [place] [address] Performed By: #### 5 7021-8 ####[facility] LABCLIA [id number] [place] [address] Immature granulocytes/100 WBC (Bld) 1.1 % Normal [facility] Comment on above: Order Comment: Speci men Type: BLOOD SPECIMENOrdering Facility: [facility] Address: [address] [place] [address] Performed By: #### 5 7021-8 ####[facility] LABCLIA [id number] [place] [address] Lymphocytes (Bld) [#/Vol] 1.97 10*3/uL Normal 1.00-4.00 [facility] Comment on above: Order Comment: Speci men Type: BLOOD SPECIMENOrdering Facility: [facility] Address: [address] [place] [address] Performed By: #### 5 7021-8 ####[facility] LABCLIA [id number] [place] [address] Lymphocytes/100 WBC (Bld) 19.3 % Normal [facility] Comment on above: Order Comment: Speci men Type: BLOOD SPECIMENOrdering Facility: [facility] Address: [address] [place] [address] Performed By: #### 5 7021-8 ####[facility] LABCLIA [id number] [place] [address] MCH (RBC) [Entitic mass] 29.9 pg Normal 26.0-34.0 [facility] Comment on above: Order Comment: Speci men Type: BLOOD SPECIMENOrdering Facility: [facility] Address: [address] [place] [address] Performed By: #### 5 7021-8 ####[facility] LABIA [id number] [place] [address] MCHC (RBC) [Mass/Vol] 31.2 g/dL Normal 30.5-36.0 [facility] Comment on above: Order Comment: Speci men Type: BLOOD SPECIMENOrdering Facility: [facility] Address: [address] [place] [address] Performed By: #### 5 7021-8 ####[facility] LABIA [id number] [place] [address] MCV (RBC) [Entitic vol] 95.6 fL Normal 80.0-100.0 [facility] Comment on above: Order Comment: Speci men Type: BLOOD SPECIMENOrdering Facility: [facility] Address: [address] [place] [address] Performed By: #### 5 7021-8 ####[facility] LABCLIA [id number] [place] [address] Monocytes (Bld) [#/Vol] 0.49 10*3/uL Normal <0.87 [facility] Comment on above: Order Comment: Speci men Type: BLOOD SPECIMENOrdering Facility: [facility] Address: [address] [place] [address] Performed By: #### 5 7021-8 ####[facility] LABCLIA [id number] [place] [address] Monocytes/100 WBC (Bld) 4.8 % Normal [facility] Comment on above: Order Comment: Speci men Type: BLOOD SPECIMENOrdering Facility: [facility] Address: [address] [place] [address] Performed By: #### 5 7021-8 ####[facility] LABCLIA [id number] [place] [address] Neutrophils (Bld) [#/Vol] 7.59 10*3/uL High 1.45-7.50 [facility] Comment on above: Order Comment: Speci men Type: BLOOD SPECIMENOrdering Facility: [facility] Address: [address] [place] [address] Performed By: #### 5 7021-8 ####[facility] LABCLIA [id number] [place] [address] Neutrophils/100 WBC (Bld) 74.3 % Normal [facility] Comment on above: Order Comment: Speci men Type: BLOOD SPECIMENOrdering Facility: [facility] Address: [address] [place] [address] Performed By: #### 5 7021-8 ####[facility] LABCLIA [id number] [place] [address] Nucleated RBC (Bld) [#/Vol] 10*3/uL Normal <0.01 [facility] Comment on above: Order Comment: Speci men Type: BLOOD SPECIMENOrdering Facility: [facility] Address: [address] [place] [address] Performed By: #### 5 7021-8 ####[facility] LABCLIA [id number] [place] [address] Nucleated RBC/100 WBC (Bld) [Ratio] 0.0 /100 WBC Normal [facility] Comment on above: Order Comment: Speci men Type: BLOOD SPECIMENOrdering Facility: [facility] Address: [address] [place] [address] Performed By: #### 5 7021-8 ####[facility] LABCLIA [id number] [place] [address] Platelet mean volume (Bld) [Entitic vol] 9.3 fL Normal 9.0-12.7 [facility] Comment on above: Order Comment: Speci men Type: BLOOD SPECIMENOrdering Facility: [facility] Address: [address] [place] [address] Performed By: #### 5 7021-8 ####[facility] LABCLIA [id number] [place] [address] Platelets (Bld) [#/Vol] 275 10*3/uL Normal 150-400 [facility] Comment on above: Order Comment: Speci men Type: BLOOD SPECIMENOrdering Facility: [facility] Address: [address] [place] [address] Performed By: #### 5 7021-8 ####[facility] LABCLIA [id number] [place] [address] RBC (Bld) [#/Vol] 3.65 10*6/uL Low 3.90-5.20 [facility] Comment on above: Order Comment: Speci men Type: BLOOD SPECIMENOrdering Facility: [facility] Address: [address] [place] [address] Performed By: #### 5 7021-8 ####[facility] LABIA [id number] [place] [address] WBC (Bld) [#/Vol] 10.21 10*3/uL Normal 3.70-11.00 [facility] Comment on above: Order Comment: Speci men Type: BLOOD SPECIMENOrdering Facility: [facility] Address: [address] [place] [address] Performed By: #### 5 7021-8 ####[facility] LABIA [id number] [place] [address] CNOVSPon 06-20-2023 CNOVSP Visit (SP) Office ([place]) HARMAN MCLEOD ([id number]) 1940 F Date Time Provider Department 06/20/23 2:30 PM WINNIE GUZMÁN During your visit today, we recorded the following information about you: Temperature Pulse Respiration Blood pressure 97.4 degrees 72/minute 16/minute 138/55 Weight Height 84.6 kg 1.549 m Winnie Guzmán PA-C 06/20/2023 3:58 PM Signed PATIENT NAME: Harman Mcleod [facility] NO.: [id number] ATTENDING PHYSICIAN: Wallace Stone MD DATE OF [...] Negative LVI, 2 SNL negative, ER and GA >95% positive, Her2 IHC 1+ Treatment History: [...] 06/20/2023 1.77 (more content not included)... Normal [facility] Comprehensive metabolic 2000 panelon 06-20-2023 Albumin [Mass/Vol] 4.0 g/dL Normal 3.9-4.9 [facility] Comment on above: Order Comment: Speci men Type: BLOOD SPECIMENOrdering Facility: [facility] Address: [address] [place] [address] Performed By: #### 2 4323-8 ####[facility] LABCLIA [id number] [place] [address] ALP [Catalytic activity/Vol] 72 U/L Normal 34-123 [facility] Comment on above: Order Comment: Speci men Type: BLOOD SPECIMENOrdering Facility: [facility] Address: [address] [place] [address] Performed By: #### 2 4323-8 ####[facility] LABCLIA [id number] [place] [address] ALT [Catalytic activity/Vol] 17 U/L Normal 7-38 [facility] Comment on above: Order Comment: Speci men Type: BLOOD SPECIMENOrdering Facility: [facility] Address: [address] [place] [address] Performed By: #### 2 4323-8 ####[facility] LABCLIA [id number] [place] [address] Anion gap [Moles/Vol] 9 mmol/L Normal 9-18 [facility] Comment on above: Order Comment: Speci men Type: BLOOD SPECIMENOrdering Facility: [facility] Address: [address] [place] [address] Performed By: #### 2 4323-8 ####[facility] LABCLIA [id number] [place] [address] AST [Catalytic activity/Vol] 11 U/L Low 13-35 [facility] Comment on above: Order Comment: Speci men Type: BLOOD SPECIMENOrdering Facility: [facility] Address: [address] [place] [address] Performed By: #### 2 4323-8 ####[facility] LABCLIA [id number] [place] [address] Bilirubin [Mass/Vol] 0.2 mg/dL Normal 0.2-1.3 [facility] Comment on above: Order Comment: Speci men Type: BLOOD SPECIMENOrdering Facility: [facility] Address: [address] [place] [address] Performed By: #### 2 4323-8 ####[facility] LABCLIA [id number] [place] [address] Calcium [Mass/Vol] 10.1 mg/dL Normal 8.5-10.2 [facility] Comment on above: Order Comment: Speci men Type: BLOOD SPECIMENOrdering Facility: [facility] Address: [address] [place] [address] Performed By: #### 2 4323-8 ####[facility] LABCLIA [id number] [place] [address] Chloride [Moles/Vol] 103 mmol/L Normal 97-105 [facility] Comment on above: Order Comment: Speci men Type: BLOOD SPECIMENOrdering Facility: [facility] Address: [address] [place] [address] Performed By: #### 2 4323-8 ####[facility] LABCLIA [id number] [place] [address] CO2 [Moles/Vol] 30 mmol/L Normal 22-30 [facility] Comment on above: Order Comment: Speci men Type: BLOOD SPECIMENOrdering Facility: [facility] Address: [address] [place] [address] Performed By: #### 2 4323-8 ####[facility] LABCLIA [id number] [place] [address] Creatinine [Mass/Vol] 1.77 mg/dL High 0.58-0.96 [facility] Comment on above: Order Comment: Speci men Type: BLOOD SPECIMENOrdering Facility: [facility] Address: [address] [place] [address] Performed By: #### 2 4323-8 ####[facility] LABCLIA [id number] [place] [address] Creatinine and Glomerular filtration rate.predicted panel (S/P/Bld) 29 mL/min/1.73m??? Low >=60 [facility] Comment on above: Order Comment: Speci men Type: BLOOD SPECIMENOrdering Facility: [facility] Address: [address] [place] [address] Result Comment: Ramila mated Glomerular Filtration Rate [...] actual GFR. Performed By: #### 2 4323-8 ####[facility] LABIA [id number] [place] [address] Glucose [Mass/Vol] 273 mg/dL High 74-99 [facility] Comment on above: Order Comment: Speci men Type: BLOOD SPECIMENOrdering Facility: [facility] Address: [address] [place] [address] Result Comment: The [place] Diabetes [employer] (ADA) provides guidance for cutoff [...] Standards of Medical Care in Diabetes 2016, [place] [employer]. Diabetes Care. 2016.39(Suppl 1). Performed By: #### 2 4323-8 ####[facility] LABIA [id number] [place] [address] Potassium [Moles/Vol] 5.1 mmol/L Normal 3.7-5.1 [facility] Comment on above: Order Comment: Speci men Type: BLOOD SPECIMENOrdering Facility: [facility] Address: [address] [place] [address] Performed By: #### 2 4323-8 ####[facility] LABCLIA [id number] [place] [address] Protein [Mass/Vol] 6.4 g/dL Normal 6.3-8.0 [facility] Comment on above: Order Comment: Speci men Type: BLOOD SPECIMENOrdering Facility: [facility] Address: [address] [place] [address] Performed By: #### 2 4323-8 ####[facility] LABCLIA [id number] [place] [address] Sodium [Moles/Vol] 142 mmol/L Normal 136-144 [facility] Comment on above: Order Comment: Speci men Type: BLOOD SPECIMENOrdering Facility: [facility] Address: [address] [place] [address] Performed By: #### 2 4323-8 ####[facility] LABCLIA [id number] [place] [address] Urea nitrogen [Mass/Vol] 40 mg/dL High 7-21 [facility] Comment on above: Order Comment: Speci men Type: BLOOD SPECIMENOrdering Facility: [facility] Address: [address] [place] [address] Performed By: #### 2 4323-8 ####[facility] LABCLIA [id number] [place] [address] Vaginitis DNA Probeon 2022 Manjula Negative Normal NEG [facility] Comment on above: Result Comment: for Manjula sp. Method of testing is a DNA probe intended for detection and identification of Manjula species, Gardnerella vaginalis, and Trichomonas vaginalis nucleic acid in vaginal fluid specimens from patients with symptoms of vaginitis/vaginosis. Performed By: #### V AGP #### [facility] [address] [place] [address] Terminal Press Operator: Fidel Hylton MD Gardnerella Negative Normal NEG [facility] Comment on above: Result Comment: for Gardnerella vaginalis Performed By: #### V AGP #### [address] [place] [address] Terminal Press Operator: Fidel Hylton MD Trichomonas Negative Normal NEG [facility] Comment on above: Result Comment: for Trichomonas Vaginalis Performed By: #### V AGP #### [address] [address] Terminal Press Operator: Fidel Hylton MD Source .VAGINAL SWAB Normal [facility] Comment on above: Performed By: #### V AGP #### [address] [id number] Terminal Press Operator: Fidel Hylton MD OPERATIVE REPORTon OPERATIVE REPORT [address] [address] OPERATIVE REPORT PATIENT NAME: HARMAN MCLEOD : 1940 MED REC NO: [id number] ROOM: ACCOUNT NO: [id number] ADMIT DATE: 03/06/2023 PROVIDER: Emma Garza MD DATE OF PROCEDURE: 03/06/2023 PREOPERATIVE DIAGNOSIS: Recurrent vaginal dysplasia. POSTOPERATIVE DIAGNOSIS: Recurrent vaginal dysplasia. OPERATION PERFORMED: Examination under anesthesia, carbon dioxide laser vaporization of vaginal dysplasia. COMPLICATIONS: None. BLOOD LOSS: Minimal. SURGEON: Emma Garza MD STEEL HANGER: Mauri (resident). DISPOSITION: The patient to recovery room stable. SPECIMENS: No specimen sent to Pathology. OPERATIVE FINDINGS: The patient had a small 1-2 cm area of vtkefnys-mj-msmedw dysplasia along the anterior vagina from 12 [...] entire procedure. EMMA GARZA MD CL/S_[email or web address]_01 Doc#: [id number] CC: Normal [facility] Consultation Noteon 02-20-20 Consultation Note [id number]#[id number] 0CD:127 Normal [facility] CBC W Auto Differential pane l (Bld)on 02-14-2023 Basophils (Bld) [#/Vol] 0.04 10*3/uL Normal <0.11 [facility] Comment on above: Order Comment: Speci men Type: BLOOD SPECIMENOrdering Facility: [facility] Address: [address] [place] [address] Performed By: #### 5 7021-8 ####[facility] LABCLIA [id number] [place] [address] Basophils/100 WBC (Bld) 0.4 % Normal [facility] Comment on above: Order Comment: Speci men Type: BLOOD SPECIMENOrdering Facility: [facility] Address: [address] [place] [address] Performed By: #### 5 7021-8 ####[facility] LABCLIA [id number] [place] [address] Differential cell count method Nom (Bld) Auto Normal [facility] Comment on above: Order Comment: Speci men Type: BLOOD SPECIMENOrdering Facility: [facility] Address: [address] [address] Performed By: #### 5 7021-8 ####[facility] LABCLIA [id number] [place] [address] Eosinophils (Bld) [#/Vol] 0.20 10*3/uL Normal <0.46 [facility] Comment on above: Order Comment: Speci men Type: BLOOD SPECIMENOrdering Facility: [facility] Address: [address] [address] Performed By: #### 5 7021-8 ####[facility] LABCLIA [id number] [place] [address] Eosinophils/100 WBC (Bld) 1.9 % Normal [facility] Comment on above: Order Comment: Speci men Type: BLOOD SPECIMENOrdering Facility: [facility] Address: [address] [place] [address] Performed By: #### 5 7021-8 ####[facility] LABCLIA [id number] [place] [address] Erythrocyte distribution width (RBC) [Ratio] 14.1 % Normal 11.5-15.0 [facility] Comment on above: Order Comment: Speci men Type: BLOOD SPECIMENOrdering Facility: [facility] Address: [address] [place] [address] Performed By: #### 5 7021-8 ####[facility] LABCLIA [id number] [place] [address] Hematocrit (Bld) [Volume fraction] 38.4 % Normal 36.0-46.0 [facility] Comment on above: Order Comment: Speci men Type: BLOOD SPECIMENOrdering Facility: [facility] Address: [address] [place] [address] Performed By: #### 5 7021-8 ####[facility] LABCLIA [id number] [place] [address] Hemoglobin (Bld) [Mass/Vol] 12.2 g/dL Normal 11.5-15.5 [facility] Comment on above: Order Comment: Speci men Type: BLOOD SPECIMENOrdering Facility: [facility] Address: [address] [place] [address] Performed By: #### 5 7021-8 ####[facility] LABCLIA [id number] [place] [address] Immature granulocytes (Bld) [#/Vol] 0.06 10*3/uL Normal <0.10 [facility] Comment on above: Order Comment: Speci men Type: BLOOD SPECIMENOrdering Facility: [facility] Address: [address] [place] [address] Performed By: #### 5 7021-8 ####[facility] LABCLIA [id number] [place] [address] Immature granulocytes/100 WBC (Bld) 0.6 % Normal [facility] Comment on above: Order Comment: Speci men Type: BLOOD SPECIMENOrdering Facility: [facility] Address: [address] [address] Performed By: #### 5 7021-8 ####[facility] LABCLIA [id number] [place] [address] Lymphocytes (Bld) [#/Vol] 2.56 10*3/uL Normal 1.00-4.00 [facility] Comment on above: Order Comment: Speci men Type: BLOOD SPECIMENOrdering Facility: [facility] Address: [address] [address] Performed By: #### 5 7021-8 ####[facility] LABCLIA [id number] [place] [address] Lymphocytes/100 WBC (Bld) 24.6 % Normal [facility] Comment on above: Order Comment: Speci men Type: BLOOD SPECIMENOrdering Facility: [facility] Address: [address] [place] [address] Performed By: #### 5 7021-8 ####[facility] LABCLIA [id number] [place] [address] MCH (RBC) [Entitic mass] 30.0 pg Normal 26.0-34.0 [facility] Comment on above: Order Comment: Speci men Type: BLOOD SPECIMENOrdering Facility: [facility] Address: [address] [place] [address] Performed By: #### 5 7021-8 ####[facility] LABCLIA [id number] [place] [address] MCHC (RBC) [Mass/Vol] 31.8 g/dL Normal 30.5-36.0 [facility] Comment on above: Order Comment: Speci men Type: BLOOD SPECIMENOrdering Facility: [facility] Address: [address] [place] [address] Performed By: #### 5 7021-8 ####[facility] LABIA [id number] [place] [address] MCV (RBC) [Entitic vol] 94.3 fL Normal 80.0-100.0 [facility] Comment on above: Order Comment: Speci men Type: BLOOD SPECIMENOrdering Facility: [facility] Address: [address] [place] [address] Performed By: #### 5 7021-8 ####[facility] LABCLIA [id number] [place] [address] Monocytes (Bld) [#/Vol] 0.86 10*3/uL Normal <0.87 [facility] Comment on above: Order Comment: Speci men Type: BLOOD SPECIMENOrdering Facility: [facility] Address: [address] [place] [address] Performed By: #### 5 7021-8 ####[facility] LABCLIA [id number] [place] [address] Monocytes/100 WBC (Bld) 8.3 % Normal [facility] Comment on above: Order Comment: Speci men Type: BLOOD SPECIMENOrdering Facility: [facility] Address: [address] [address] Performed By: #### 5 7021-8 ####[facility] LABCLIA [id number] [place] [address] Neutrophils (Bld) [#/Vol] 6.69 10*3/uL Normal 1.45-7.50 [facility] Comment on above: Order Comment: Speci men Type: BLOOD SPECIMENOrdering Facility: [facility] Address: [address] [address] Performed By: #### 5 7021-8 ####[facility] LABCLIA [id number] [place] [address] Neutrophils/100 WBC (Bld) 64.2 % Normal [facility] Comment on above: Order Comment: Speci men Type: BLOOD SPECIMENOrdering Facility: [facility] Address: [address] [address] Performed By: #### 5 7021-8 ####[facility] LABCLIA [id number] [place] [address] Nucleated RBC (Bld) [#/Vol] 10*3/uL Normal <0.01 [facility] Comment on above: Order Comment: Speci men Type: BLOOD SPECIMENOrdering Facility: [facility] Address: [address] [place] [address] Performed By: #### 5 7021-8 ####[facility] LABCLIA [id number] [place] [address] Nucleated RBC/100 WBC (Bld) [Ratio] 0.0 /100 WBC Normal [facility] Comment on above: Order Comment: Speci men Type: BLOOD SPECIMENOrdering Facility: [facility] Address: [address] [place] [address] Performed By: #### 5 7021-8 ####[facility] LABCLIA [id number] [place] [address] Platelet mean volume (Bld) [Entitic vol] 9.6 fL Normal 9.0-12.7 [facility] Comment on above: Order Comment: Speci men Type: BLOOD SPECIMENOrdering Facility: [facility] Address: [address] [place] [address] Performed By: #### 5 7021-8 ####[facility] LABIA [id number] [place] [address] Platelets (Bld) [#/Vol] 271 10*3/uL Normal 150-400 [facility] Comment on above: Order Comment: Speci men Type: BLOOD SPECIMENOrdering Facility: [facility] Address: [address] [place] [address] Performed By: #### 5 7021-8 ####[facility] [id number] [place] [address] RBC (Bld) [#/Vol] 4.07 10*6/uL Normal 3.90-5.20 [facility] Comment on above: Order Comment: Speci men Type: BLOOD SPECIMENOrdering Facility: [facility] Address: [address] [place] [address] Performed By: #### 5 7021-8 ####[facility] [id number] [place] [address] WBC (Bld) [#/Vol] 10.41 10*3/uL Normal 3.70-11.00 [facility] Comment on above: Order Comment: Speci men Type: BLOOD SPECIMENOrdering Facility: [facility] Address: [address] [place] [address] Performed By: #### 5 7021-8 ####[facility] [id number] [place] [address] CNOVSPon 02-14-2023 CNOVSP Visit (SP) Office (HEMASA) HARMAN MCLEOD ([id number]) 1940 F Date Time Provider Department 02/14/23 10:30 AM [facility] ST[facility] During your visit today, we recorded the following information about you: Temperature Pulse Respiration Blood pressure 97.4 degrees 102/minute 16/minute 151/90 Weight Height 84.5 kg 1.549 m Wallace Stone MD 02/14/2023 10:49 AM Signed PATIENT NAME: Harman Mcleod CLINIC NO.: [id number] ATTENDING PHYSICIAN: Wallace Stone MD DATE OF [...] Negative LVI, 2 SNL negative, ER and GA >95% positive, Her2 IHC 1+ Treatment History: [...] : Deferre (more content not included)... Normal [facility] CNPNon 02-14-2023 CNPN Telephone (NCCAP) HARMAN MCLEOD ([id number]) 1940 F Date Time Provider Department 02/14/23 [facility] STONE [facility] During your visit today, we recorded the following information about you: Angelica Garrett 02/14/2023 11:00 AM Signed Please ref to Dermatology [facility] for Consult dx eczema They will call the patient to schedule after review of records. Janeth, Please fax records Dudley, Please check on this appt. Kira Ko [facility] 02/14/2023 1:14 PM Signed Records faxed to [facility]. Adriana Pereira Pss 02/22/2023 8:35 AM Signed Called Derm [facility] office spoke with Coco. She states they [...] daily at bedtime. Cut in half - Upfne-9-BNZ-EPA-Fish Oil 1,000 mg (120 mg-180 mg) cap Take 2 g by mouth twice daily. - isosorbide mononitrate ER (IMDUR) 60 mg 24 hr tablet Take 60 mg by mouth twice daily. 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 Stage 3a chronic kidney disease (HCC) [N18.31] 02/14/2023 Encounter Status:Closed by ANGELICA MILLAN on 02/28/23 Normal [facility] Comprehensive metabolic 2000 panelon 02-14-2023 Albumin [Mass/Vol] 4.1 g/dL Normal 3.9-4.9 [facility] Comment on above: Order Comment: Speci men Type: BLOOD SPECIMENOrdering Facility: [facility] Address: [address] [place] [address] Performed By: #### 2 4323-8 ####[facility] LABCLIA [id number] [place] [address] ALP [Catalytic activity/Vol] 106 U/L Normal 34-123 [facility] Comment on above: Order Comment: Speci men Type: BLOOD SPECIMENOrdering Facility: [facility] Address: [address] [place] [address] Performed By: #### 2 4323-8 ####[facility] LABCLIA [id number] [place] [address] ALT [Catalytic activity/Vol] 14 U/L Normal 7-38 [facility] Comment on above: Order Comment: Speci men Type: BLOOD SPECIMENOrdering Facility: [facility] Address: [address] [place] [address] Performed By: #### 2 4323-8 ####[facility] LABCLIA [id number] [place] [address] Anion gap [Moles/Vol] 11 mmol/L Normal 9-18 [facility] Comment on above: Order Comment: Speci men Type: BLOOD SPECIMENOrdering Facility: [facility] Address: [address] [place] [address] Performed By: #### 2 4323-8 ####[facility] LABIA [id number] [place] [address] AST [Catalytic activity/Vol] 11 U/L Low 13-35 [facility] Comment on above: Order Comment: Speci men Type: BLOOD SPECIMENOrdering Facility: [facility] Address: [address] [address] Performed By: #### 2 4323-8 ####[facility] LABCLIA [id number] [place] [address] Bilirubin [Mass/Vol] 0.3 mg/dL Normal 0.2-1.3 [facility] Comment on above: Order Comment: Speci men Type: BLOOD SPECIMENOrdering Facility: [facility] Address: [address] [address] Performed By: #### 2 4323-8 ####[facility] LABCLIA [id number] [place] [address] Calcium [Mass/Vol] 10.2 mg/dL Normal 8.5-10.2 [facility] Comment on above: Order Comment: Speci men Type: BLOOD SPECIMENOrdering Facility: [facility] Address: [address] [place] [address] Performed By: #### 2 4323-8 ####[facility] LABCLIA [id number] [place] [address] Chloride [Moles/Vol] 98 mmol/L Normal 97-105 [facility] Comment on above: Order Comment: Speci men Type: BLOOD SPECIMENOrdering Facility: [facility] Address: [address] [place] [address] Performed By: #### 2 4323-8 ####[facility] LABCLIA [id number] [place] [address] CO2 [Moles/Vol] 31 mmol/L High 22-30 [facility] Comment on above: Order Comment: Speci men Type: BLOOD SPECIMENOrdering Facility: [facility] Address: [address] [place] [address] Performed By: #### 2 4323-8 ####[facility] LABCLIA [id number] [place] [address] Creatinine [Mass/Vol] 1.25 mg/dL High 0.58-0.96 [facility] Comment on above: Order Comment: Dimple de santiago Type: BLOOD SPECIMENOrdering Facility: [facility] Address: [address] [id number] Performed By: #### 2 4323-8 ####[facility] LABCLIA [id number] [place] [address] ESTIMATED GLOMERULAR FILTRATION RATE 44 mL/min/1.73m??? Low >=60 [facility] Comment on above: Order Comment: Dimple anyi Type: BLOOD SPECIMENOrdering Facility: [facility] Address: [address] [address] Result Comment: Ramila mated Glomerular Filtration Rate [...] actual GFR. Performed By: #### 2 4323-8 ####[facility] LABCLIA [id number] [place] [address] Glucose [Mass/Vol] 285 mg/dL High 74-99 [facility] Comment on above: Order Comment: Dimple anyi Type: BLOOD SPECIMENOrdering Facility: [facility] Address: [address] [address] Result Comment: The [place] Diabetes Association (ADA) provides guidance for cutoff [...] Standards of Medical Care in Diabetes 2016, [place] [employer]. Diabetes Care. 2016.39(Suppl 1). Performed By: #### 2 4323-8 ####[facility] LABCLIA [id number] [place] [address] Potassium [Moles/Vol] 3.7 mmol/L Normal 3.7-5.1 [facility] Comment on above: Order Comment: Speci men Type: BLOOD SPECIMENOrdering Facility: [facility] Address: [address] [place] [address] Performed By: #### 2 4323-8 ####[facility] LABCLIA [id number] [place] [address] Protein [Mass/Vol] 7.3 g/dL Normal 6.3-8.0 [facility] Comment on above: Order Comment: Speci men Type: BLOOD SPECIMENOrdering Facility: [facility] Address: [address] [place] [address] Performed By: #### 2 4323-8 ####[facility] LABCLIA [id number] [place] [address] Sodium [Moles/Vol] 140 mmol/L Normal 136-144 [facility] Comment on above: Order Comment: Speci men Type: BLOOD SPECIMENOrdering Facility: [facility] Address: [address] [place] [address] Performed By: #### 2 4323-8 ####[facility] LABCLIA [id number] [place] [address] Urea nitrogen [Mass/Vol] 33 mg/dL High 7-21 [facility] Comment on above: Order Comment: Speci men Type: BLOOD SPECIMENOrdering Facility: [facility] Address: [address] [place] [address] Performed By: #### 2 4323-8 ####[facility] LABCLIA [id number] [place] [address] Consultation Noteon 06-06-20 23 Consultation Note [id number] 0CD:127 Normal [facility] Comment on above: Other Comment: TRACEY RUTH CRR CULTURE URINEon 01-19-2023 CULTURE URINE Culture Observations : VERY LIGHT GROWTH OF MIXED GENITAL SAGE. NO POTENTIAL PATHOGENS SEEN. Normal [facility] Comment on above: Performed By: #### U RCX ####[facility] [address] [address]Dr. Omid Bowden UA RANDOM W/MICROSCOPICon BACTERIA TRACE Abnormal NONE SEEN [facility] Comment on above: Performed By: #### H GB #### [facility] [address] [place] [address] Dr. Omid Bowden Bilirubin Ql (U) Negative Normal NEGATIVE [facility] Comment on above: Performed By: #### H GB #### [facility] [address] [place] [address] Dr. Omid Bowden CAST NONE SEEN Normal NONE SEEN [facility] Comment on above: Performed By: #### H GB #### [facility] [address] [place] [address] Dr. Omid Bowden Clarity (U) CLEAR Normal CLEAR [facility] Comment on above: Performed By: #### H GB #### [facility] [address] [place] [address] Dr. Omid Bowden Color (U) LT. YELLOW Normal YELLOW [facility] Comment on above: Performed By: #### H GB #### [facility] [address] [place] [address] Dr. Omid Bowden Crystals LM Nom (Urine sed) NONE SEEN Normal NONE SEEN [facility] Comment on above: Performed By: #### H GB #### [facility] [address] [place] [address] Dr. Omid Bowden Epithelial cells LM Ql (Urine sed) RARE Normal NONE SEEN /RARE [facility] Comment on above: Performed By: #### H GB #### [facility] [address] [place] [address] Dr. Omid Bowden Glucose Ql (U) Negative Normal NEGATIVE [facility] Comment on above: Performed By: #### H GB #### [facility] [address] [address] [address] Omid Bowden Hemoglobin Ql (U) Negative Normal NEGATIVE [facility] Comment on above: Performed By: #### H GB #### [facility] [address] [place] [address] Dr. Omid Bowden Ketones Ql (U) Negative Normal NEGATIVE [facility] Comment on above: Performed By: #### H GB #### [facility] [address] [address] [address] Omid Bowden LEUKOCYTES SMALL Abnormal NEGATIVE [facility] Comment on above: Performed By: #### H GB #### [facility] [address] [place] [address] Dr. Omid Bowden MUCOUS NONE SEEN Normal NONE SEEN [facility] Comment on above: Performed By: #### H GB #### [facility] [address] [place] [address] Dr. Omid Bowden Nitrite Ql (U) Negative Normal NEGATIVE [facility] Comment on above: Performed By: #### H GB #### [facility] [address] [place] [address] Dr. Omid Bowden pH (U) 6.0 [pH] Normal 5-9 [facility] Comment on above: Performed By: #### H GB #### [facility] [address] [place] [address] Dr. Omid Bowden RBC 0-2 Normal 0-2 [facility] Comment on above: Performed By: #### H GB #### [facility] [address] [place] [address] Dr. Omid Bowden SPEC GRAVITY <=1.005 Abnormal 1.005-<=1.0 25 [facility] Comment on above: Performed By: #### H GB #### [facility] [address] [place] [address] Dr. Omid Bowden UA PROTEIN Negative Normal NEGATIVE/ TRACE [facility] Comment on above: Performed By: #### H GB #### [facility] [address] [address] [address] Omid Bowden Urobilinogen Qn (U) 0.2 {Jose'U}/dL Normal 0.2 - 1. 0 [facility] Comment on above: Performed By: #### H GB #### [facility] [address] [address] [address] Omid Bowden WBC 0-2 Abnormal NONE SEEN [facility] Comment on above: Performed By: #### H GB #### [facility] [address] [address] [address] Omid Bowden Creatinine [Mass/volume] in Serum or PlasmaOrdered By: Christiano Gonzales on 11-29-2022 Creatinine [Mass/Vol] 1.37 mg/dL 0.60-1.20 [facility] - Chemistry and C hemistry - challengeOrdered By: Christiano Gonzales on 11-29-2022 GFR/1.73 sq M.predicted MDRD (S/P/Bld) [Vol rate/Area] 39.034 mL/min/{1.73_m2} [facility] No Panel InformationOrdered By: Christiano Gonzales on 11-29-2022 Pharmacy Creatinine Clearance (Chem 31.71 [facility] Urea nitrogen [Mass/volume] in Serum or PlasmaOrdered By: Christiano Gonzales on 11-29-2022 Urea nitrogen [Mass/Vol] 35 mg/dL 7-25 [facility] Surgical Pathologyon 023 Surgical Pathology (NOTE) [...] CONSULTATION Patient Name: HARMAN MCLEOD Med Rec: [id number] Path Number: [id number] rocket staff [facility] [address] [place], [place] [address] Normal [facility] Comment on above: Performed By: #### P PPVS #### [facility] [address] [place] [id number] [employer] Operator: Fidel Hylton MD Ambulatory Visit Summaryon 0 [...] and diastolic (congestive) heart failure Atherosclerosis of [place]ki[place] artery of extremity BMI 36.0-36.9,adult Brain stem [...] Stage 2 chronic kidney disease Normal Mikie [facility] General Surgery Office/Clini c Noteon 11-22-2022 [...] DANIEL Jose Only if needed [address] [employer] [place] [address]- Additional Instructions: Problem List/Past Medical History Ongoing Acute combined systolic (congestive) and diastolic (congestive) heart failure Atherosclerosis of [place] artery of extremity BMI 36.0-36.9,adult Brain stem [...] per d (more content not included)... Normal [facility] Comment on above: Result Comment: Elec tronically Signed By: CHELSI CARDONA, Iliana Ramirez\jazmine\Date and Time Signed: 11/22/22 15:17 EDT Covid-19 PCR (CVDTB)on SARS-CoV-2 (COVID-19) RNA MARII+probe Ql (Unsp spec) Not detected Normal NOT DETECTED [facility] Comment on above: Result Comment: When diagnostic [...] for this test is supported by the [place] of Health and Human Service's declaration that [...] used). Performed By: #### H GB #### [facility] [address] [address] [address] Omid Bowden INFLUENZA A AND B AGon 11-16 [facility] SEE BELOW Normal [facility] Comment on above: Result Comment: Nega tive for Flu A protein angiten. Infection due to Flu A cannot be ruled out. Flu A angiten in the sample may be below the detection limit of the test. Performed By: #### I NFLUAB ####[facility] [address] [place], [place] [address]Dr. Omid Bowden INFLUBNEG SEE BELOW Normal [facility] Comment on above: Result Comment: Nega tive for Flu B protein antigen. Infection due to Flu B cannot be ruled out. Flu B antigen in the sample may be below the detection limit of the test. Performed By: #### I NFLUAB ####[facility] [address] [place], [place] [address]Dr. Omid Bowden INFLUENZA A AG Negative Normal NEGATIVE SEE COMMENT [facility] Comment on above: Performed By: #### I NFLUAB ####[facility] [address] [place], [place] [address]DrMedardo Bowden INFLUENZA B AG Negative Normal NEGATIVE SEE COMMENT [facility] Comment on above: Performed By: #### I NFLUAB ####[facility] [address] [place], [place] [address]Dr. Omid Bowden CNOVSPon 11-09-2022 CNOVSP Visit (SP) [facility] HARMAN MCLEOD ([id number]) 1940 F Date Time Provider Department 11/09/22 2:00 PM WALLACE STONE During your visit today, we recorded the following information about you: Temperature Pulse Respiration Blood pressure 97.1 degrees 66/minute 18/minute 142/72 Weight Height 84.7 kg 1.549 m Wallace Stone MD 11/09/2022 2:24 PM Signed PATIENT NAME: Harman Mcleod CLINIC NO.: [id number] ATTENDING PHYSICIAN: Wallace Stone MD DATE OF SERVICE: November 09, [address] Banks referring provider defined for this encounter. here is an update on a follow up visit on female Harman Mcleod at the clinic 11/09/2022 Diagnosis: T1b, N0, M0- R breast, Tumor 9 mm, Grade 2, Margins negative, Negative LVI, 2 SNL negative, ER and GA >95% positive, Her2 IHC 1+ Treatment History: [...] LABS: Gluc (more content not included)... Normal [facility] CNPNon 11-09-2022 CNPN Telephone (NCCAP) HARMAN MCLEOD ([id number]) 1940 F Date Time Provider Department 11/09/22 WALLACE STONE NCCAP During your visit today, we recorded the following information about you: Carlos Brooks 11/09/2022 2:45 PM Signed Vascular Consult [facility] Previous patient of Dr. Mendez 3 years or more. Janeth/Dudley: Can you please refer patient and follow up? Thanks! Carlos Pereira [facility] 11/10/2022 8:46 AM Signed Janeth: Information ready for you. Adriana Pereira [facility] Kira Ko [facility] 11/10/2022 9:38 AM Signed Records faxed. [...] Fully Assessed Reason for Visit: Referral Information [5541] Cmt: Vascular Consult Prescriptions as of 11/16/2022 [...] daily at bedtime. Cut in half - Cxfyt-9-SVV-EPA-Fish Oil 1,000 mg (120 mg-180 mg) cap Take 2 g by mouth twice daily. - isosorbide mononitrate ER (IMDUR) 60 mg 24 hr tablet Take 60 mg by mouth twice daily. 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 Normal [facility] Comment on above: Result Comment: Elec [...] Where: General Surgery Chelsi/Angelita Israel Normal Deluna [facility] General Surgery Office/Clini c Noteon 11-04-2022 [...] and diastolic (congestive) heart failure Atherosclerosis of [place] artery of extremity BMI 36.0-36.9,adult Brain stem [...] Family Histor (more content not included)... Normal [facility] Comment on above: Result Comment: Elec [...] by: MIGUELITO TELLEZ Date: 2022-11-02 17:17 Normal [facility] Pathology Noteon 10-26-2022 Pathology Note [id number]#1.0 0CD:127 Normal [facility] Ambulatory Visit Summaryon 0 10-25-2022 Ambulatory [...] MD Where: General Surgery Chelsi/Angelita Lindy Victor [facility] General Surgery Office/Clini c Noteon 10-25-2022 [...] and diastolic (congestive) heart failure Atherosclerosis of [place] artery of extremity BMI 36.0-36.9,adult Brain stem [...] disease: Mo (more content not included)... Normal [facility] Comment on above: Result Comment: Elec tronically Signed By: CHELSI CARDONA, Iliana Alvarez\Date and Time Signed: 10/25/22 16:13 EST Operative Reporton 3 Operative Report [id number] 0CD:127 Normal [facility] RAD - Ultrasound Reporton RAD - Ultrasound Report [id number]#1.0 0CD:127 Normal [facility] NM SENTNL NODEon 10-19-2022 MA SENT NODE NUCLEAR MEDICINE LYMPHOSCINTIGRAPHY. HISTORY: Infiltrating [...] by: KRISTIN JAQUEZ Date: 2022-10-19 10:41 Normal [facility] POINT OF CARE GLUCOSEon 02- Glucose [Mass/Vol] 153 mg/dL Critically high 74-106 T [facility] Comment on above: Performed By: #### P OCGLUC #### [facility] [address] [address] [address] Omid Bowden RAD - MISCon 10-19-2022 RAD - MISC [id number]#1.0 0CD:127 Normal [facility] RAD - MISC [id number] 0CD:127 Normal [facility] RAD - Ultrasound Reporton RAD - Ultrasound Report [id number] 0CD:127 Normal [facility] RAD - Ultrasound Report [id number] 0CD:127 Normal [facility] US BREAST SPECIMENon 023 US BREAST SPECIMEN Patient: HARMAN MCLEOD Exam Date: 10/19/2022 : 1940 Gender:F Ordering : DR ILIANA GAGNON . Admission #: [id number] Family : Order #: [id number] CLICK HERE TO VIEW EXAM RADIOLOGY REPORT PROCEDURE: US BREAST SPECIMEN COMPARISON: None. INDICATIONS: Specimen from breast FINDINGS: Breast specimen demonstrates inclusion of the targeted mass as well as the micro clip marker CONCLUSION: Targeted mass and micro clip marker included within the specimen Dictated by: Judson Bauman MD on 10/19/2022 at 11:46 Approved by: Judson Bauman MD on 10/19/2022 at 11:47 Normal [facility] US GUIDE LOCAL BREAST RTon 0 10-19-2022 US GUIDE LOCAL BREAST RT Patient: HARMAN MCLEOD Refugio Exam Date: 10/19/2022 : 1940 Gender:F Ordering : DR ILIANA GAGNON . Admission #: [id number] Family : Order #: [id number] CLICK HERE TO VIEW EXAM RADIOLOGY REPORT [...] clip marker LOCATION: Right breast 9 NEEDLE: Duxter spring hook; 20 g by 5 cm needle and wire. MEDICATION: 6 cubic cm Superficial and deep buffered 1% lidocaine. COMPLICATIONS: None. CONCLUSION: Technically successful hookwire localization. Dictated by: Judson Bauman MD on 10/19/2022 at 09:04 Approved by: Judson Bauman MD on 10/19/2022 at 09:05 Normal [facility] US SENTINEL NODEon US SENTINEL NODE EXAM: [...] by: JUDSON BAUMAN Date: 2022-10-19 08:59 Normal [facility] RAD - MISCon 10-17-2022 RAD - MISC [id number] 0CD:127 Normal [facility] CBC AUTO DIFFon 10-11-2022 BASO # 0.0 103/ul Normal 0.0-0.1 [facility] Comment on above: Performed By: #### H GB #### [facility] [address] [place] [address] Dr. Omid Bowden Basophils/100 WBC (Bld) 0.2 % Normal 0.2-2.0 [facility] Comment on above: Performed By: #### H GB #### [facility] [address] [place] [address] Dr. Omid Bowden EO # 0.0 103/ul Normal 0.0-0.7 [facility] Comment on above: Performed By: #### H GB #### [facility] [address] [place] [address] Dr. Omid Bowden Eosinophils/100 WBC (Bld) 0.3 % Critically low 0.9-7.0 [facility] Comment on above: Performed By: #### H GB #### [facility] [address] [place] [address] Dr. Omid Bowden Erythrocyte distribution width (RBC) [Ratio] 13.7 % Normal 11.0-15.0 [facility] Comment on above: Performed By: #### H GB #### [facility] [address] [place] [address] Dr. Omid Bowden Hematocrit (Bld) [Volume fraction] 39.6 % Normal 36.0-48.0 [facility] Comment on above: Performed By: #### H GB #### [facility] [address] [place] [address] Dr. Omid Bowden Hemoglobin (Bld) [Mass/Vol] 12.3 g/dL Normal 12.0-16.0 [facility] Comment on above: Performed By: #### H GB #### [facility] [address] [place] [address] Dr. Omid Bowden IG # 0.06 10e3/ul Critically high 0.00-0.03 [facility] Comment on above: Performed By: #### H GB #### [facility] [address] [place] [address] Dr. Omid Bowden IG % 0.5 % Normal 0.0-0.5 [facility] Comment on above: Performed By: #### H GB #### [facility] [address] [place] [address] Dr. Omid Bowden LYMPH # 2.9 103/ul Normal 1.2-3.8 [facility] Comment on above: Performed By: #### H GB #### [facility] [address] [place] [address] Dr. Omid Bowden Lymphocytes/100 WBC (Bld) 26.2 % Normal 20.5-60.0 [facility] Comment on above: Performed By: #### H GB #### [facility] [address] [place] [address] Dr. Omid Bowden MANUAL DIFF REQ NO Normal [facility] Comment on above: Performed By: #### H GB #### [facility] [address] [place] [address] Dr. Omid Bowden MCH (RBC) [Entitic mass] 28.3 pg Normal 26.7-34.0 [facility] Comment on above: Performed By: #### H GB #### [facility] [address] [place] [address] Dr. Omid Bowden MCHC (RBC) [Mass/Vol] 31.1 g/dL Normal 29.9-35.2 [facility] Comment on above: Performed By: #### H GB #### [facility] [address] [place] [address] Dr. Omid Bowden MCV (RBC) [Entitic vol] 91.2 fL Normal 81.0-99.0 [facility] Comment on above: Performed By: #### H GB #### [facility] [address] [place] [address] Dr. Omid Bowden MONO # 0.9 103/ul Critically high 0.3-0.8 [facility] Comment on above: Performed By: #### H GB #### [facility] [address] [place] [address] Dr. Omid Bowden Monocytes/100 WBC (Bld) 8.3 % Normal 1.7-12.0 [facility] Comment on above: Performed By: #### H GB #### [facility] [address] [place] [address] Dr. Omid Bowden NEUT # 7.0 103/ul Critically high 1.4-6.5 [facility] Comment on above: Performed By: #### H GB #### [facility] [address] [place] [address] Dr. Omid Bowden Neutrophils/100 WBC (Bld) 64.5 % Normal 43.0-75.0 [facility] Comment on above: Performed By: #### H GB #### [facility] [address] [place] [address] Dr. Omid Bowden Platelet mean volume (Bld) [Entitic vol] 9.2 fL Critically low 9.5-13.5 [facility] Comment on above: Performed By: #### H GB #### [facility] [address] [place] [address] Dr. Omid Bowden PLT 346 103/ul Normal 150-450 [facility] Comment on above: Performed By: #### H GB #### [facility] [address] [place] [address] Dr. Omid Bowden RBC 4.34 106/ul Normal 4.20-5.40 [facility] Comment on above: Performed By: #### H GB #### [facility] [address] [place] [address] Dr. Omid Bowden WBC 10.9 103/ul Normal 4.0-11.0 [facility] Comment on above: Performed By: #### H GB #### [facility] [address] [place] [address] Dr. Omid Bowden PROF CHEM 8 (BAS METB)on Anion gap [Moles/Vol] 11.0 mmol/L Normal [facility] Comment on above: Performed By: #### L IPID, BMP #### [facility] [address] [place] [address] Dr. Omid Bowden Calcium [Mass/Vol] 9.6 mg/dL Normal 8.5-10.1 [facility] Comment on above: Performed By: #### L IPID, BMP #### [facility] [address] [place] [address] Dr. Omid Bowden Chloride [Moles/Vol] 99 mmol/L Normal 98-107 [facility] Comment on above: Performed By: #### L IPID, BMP #### [facility] [address] [place] [address] Dr. Omid Bowden CO2 [Moles/Vol] 32.0 mmol/L Normal 21.0-32.0 [facility] Comment on above: Performed By: #### L IPID, BMP #### [facility] [address] [address] [address] Omid Bowden Creatinine [Mass/Vol] 1.03 mg/dL Critically high 0.55-1.02 [facility] Comment on above: Performed By: #### L IPID, BMP #### [facility] [address] [address] [address] Omid Bowden EGFR-AF MARTINIQUAIS >60 Normal >=60 [facility] Comment on above: Performed By: #### L IPID, BMP #### [facility] [address] [place] [address] Dr. Omid Bowden EGFR-NON AF MARTINIQUAIS 52 mL/min/1.73m2 Critically low >=60 [facility] Comment on above: Performed By: #### L IPID, BMP #### [facility] [address] [address] [address] Omid Bowden Glucose [Mass/Vol] 94 mg/dL Normal 74-106 [facility] Comment on above: Performed By: #### L IPID, BMP #### [facility] [address] [place] [address] Dr. Omid Bowden Potassium [Moles/Vol] 4.0 mmol/L Normal 3.5-5.1 [facility] Comment on above: Performed By: #### L IPID, BMP #### [facility] [address] [address] [address] Omid Bowden Sodium [Moles/Vol] 138 mmol/L Normal 136-145 [facility] Comment on above: Performed By: #### L IPID, BMP #### [facility] [address] [address] [address] Omid Bowden Urea nitrogen [Mass/Vol] 28.0 mg/dL Critically high 7.0-18.0 [facility] Comment on above: Performed By: #### L IPID, BMP #### [facility] [address] [address] [address] Omid Bowden Urea nitrogen/Creatinine [Mass ratio] 27.2 mg/mg Normal [facility] Comment on above: Performed By: #### L IPID, BMP #### [facility] [address] [place] [address] Dr. Omid Bowden PROTIMEon 10-11-2022 INR Coag (PPP) [Relative time] 0.99 {INR} Normal [facility] Comment on above: Performed By: #### H GB #### [facility] [address] [place] [address] Dr. Omid Bowden INR GUIDELINES SEE BELOW Normal [facility] Comment on above: Result Comment: PERLITA RED INR: 2.0 - 3.0 CONDITIONS NOT LISTED BELOW 2.5 - 3.5 FOR PROSTHETIC HEART VALVE REPLACEMENT 2.5 - 3.5 RECURRENT THROMBOSIS Performed By: #### H GB #### [facility] [address] [place] [address] Dr. Omid Bowden PT Coag (PPP) [Time] 10.5 s Normal 9.0-11.6 [facility] Comment on above: Performed By: #### H GB #### [facility] [address] [place] [address] Dr. Omid Bowden PTTon 10-11-2022 aPTT Coag (Bld) [Time] 28.6 s Normal 22.3-36.2 Th [facility] Comment on above: Performed By: #### H GB #### [facility] [address] [place] [address] Dr. Omid Bowden Consultation Noteon 10-06-19 23 Consultation Note [id number]#1.0 0CD:127 Normal [facility] INSULINon 10-01-2022 Insulin 22.8 uIU/mL Normal 2.6-24.9 [facility] Comment on above: Performed By: #### L IPID, BMP #### [facility] [address] [place] [address] Dr. Omid Bowden GLYCOHEMOGLOBIN A1Con 2022 ADA RECOMMENDATION SEE BELOW Normal [facility] Comment on above: Result Comment: ADA RECOMMENDED LIMIT 4.0 - 6.0 ADA THERAPEUTIC TARGET < 7.0 ACTION SUGGESTED > 7.0 Performed By: #### H GB #### [facility] [address] [address] [address] Omid Bowden Glucose [Mass/Vol] 177 mg/dL Normal [facility] Comment on above: Performed By: #### H GB #### [facility] [address] [address] [address] Omid Bowden HbA1c (Bld) [Mass fraction] 7.8 % Critically high 4.5-6.2 [facility] Comment on above: Performed By: #### H GB #### [facility] [address] [address] [address] Omid Bowden PROF 14(COMP METB)on 023 Albumin [Mass/Vol] 3.0 g/dL Critically low 3.4-5.0 [facility] Comment on above: Performed By: #### C MP ####[facility] [address] [address]DrMedardo Bowden Albumin/Globulin [Mass ratio] 0.7 {ratio} Normal [facility] Comment on above: Performed By: #### C MP ####[facility] [address] [address]DrMedardo Bowden ALP [Catalytic activity/Vol] 73 U/L Normal 46-116 [facility] Comment on above: Performed By: #### C MP ####[facility] [address] [address]DrMedardo Bowden ALT [Catalytic activity/Vol] 16 U/L Normal 14-59 [facility] Comment on above: Performed By: #### C MP ####[facility] [address] [address]DrMedardo Bowden Anion gap [Moles/Vol] 11.3 mmol/L Normal [facility] Comment on above: Performed By: #### C MP ####[facility] [address] [address]DrMedardo Bowden AST [Catalytic activity/Vol] 14 U/L Critically low 15-37 [facility] Comment on above: Performed By: #### C MP ####[facility] [address] [address]Dr. Omid Bowden Bilirubin [Mass/Vol] 0.3 mg/dL Normal 0.2-1.0 [facility] Comment on above: Performed By: #### C MP ####[facility] [address] [place], [place] [address]Dr. Omid Bowden Calcium [Mass/Vol] 9.5 mg/dL Normal 8.5-10.1 [facility] Comment on above: Performed By: #### C MP ####[facility] [address] [place], [place] [address]Dr. Omid Bowden Chloride [Moles/Vol] 102 mmol/L Normal 98-107 [facility] Comment on above: Performed By: #### C MP ####[facility] [address] [place], [place] [address]Dr. Omid Bowden CO2 [Moles/Vol] 31.1 mmol/L Normal 21.0-32.0 [facility] Comment on above: Performed By: #### C MP ####[facility] [address] [place], [place] [address]Dr. Omid Bowden Creatinine [Mass/Vol] 1.28 mg/dL Critically high 0.55-1.02 [facility] Comment on above: Performed By: #### C MP ####[facility] [address] [place], [place] [address]Dr. Omid Kal EGFR-AF MARTINIQUAIS 49 mL/min/1.73m2 Critically low >=60 [facility] Comment on above: Performed By: #### C MP ####[facility] [address] [place], [place] [address]Dr. Omid Kal EGFR-NON AF MARTINIQUAIS 40 mL/min/1.73m2 Critically low >=60 [facility] Comment on above: Performed By: #### C MP ####[facility] [address] [place], [place] [address]Dr. Omid Bowden Globulin (S) [Mass/Vol] 4.4 g/dL Normal [facility] Comment on above: Performed By: #### C MP ####[facility] [address] [address]Dr. Omid Bowden Glucose [Mass/Vol] 103 mg/dL Normal 74-106 [facility] Comment on above: Performed By: #### C MP ####[facility] [address] [address]Dr. Omid Kal Potassium [Moles/Vol] 4.4 mmol/L Normal 3.5-5.1 [facility] Comment on above: Performed By: #### C MP ####[facility] [address] [address]Dr. Omid Bowden Protein [Mass/Vol] 7.4 g/dL Normal 6.4-8.2 [facility] Comment on above: Performed By: #### C MP ####[facility] [address] [place], [place] [address]Dr. Omid Bowden Sodium [Moles/Vol] 140 mmol/L Normal 136-145 [facility] Comment on above: Performed By: #### C MP ####[facility] [address] [place], [place] [address]Dr. Omid Bowden Urea nitrogen [Mass/Vol] 27.0 mg/dL Critically high 7.0-18.0 [facility] Comment on above: Performed By: #### C MP ####[facility] [address] [place], [place] [address]Dr. Omid Kal Urea nitrogen/Creatinine [Mass ratio] 21.1 mg/mg Normal [facility] Comment on above: Performed By: #### C MP ####[facility] [address] [place], [place] [address]Dr. Omid Kal Formson 09-29-2022 Forms [id number]#1.0 0CD:127 Normal [facility] Consent for Procedure/Surger yon 09-26-2022 Consent for Procedure/Surgery [id number]#1.0 0CD:127 Normal [facility] Consultation Noteon 09-23-19 Consultation Note [id number]#1.0 0CD:127 Normal [facility] CNOVon 09-22-2022 CNOV Office Visit (RADTSA ) HARMAN MCLEOD ([id number]) 1940 F Date Time Provider Department 09/22/22 1:00 PM MARCIN SHAH During your visit today, we recorded the following information about you: Marcin Shah MD 2022 6:06 AM Addendum Radiation Oncology - New Patient/Consult Note PATIENT NAME: Harman Mcleod PATIENT REQUESTING PHYSICIAN: Dr. 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 PATIENT IDENTIFICATION: This patient was seen in the Department of Radiation Oncology at the [facility] with Marcin Shah MD. She was accompanied today by her family. Final recommendations will be communicated back to the requesting physician by way of the shared medical record, or letter to requesting physician via [place] mail. HISTORY OF PRESENT ILLNESS: Ms. Mcleod is an 82-year-old woman from [place], [place] who was discovered on screening mammogram from July 2022 to have an abnormality within the anterior upper outer quadrant of the right breast. This was confirmed on ultrasound and she underwent stereotactic biopsy on 08/19/2022 with pathology revealing intermediate grade IDC that was ER/GA positive HER2 negative. She has met with [...] tablet crenshaw (more content not included)... Normal [facility] CNOVSPon 09-22-2022 CNOVSP Visit (SP) Office (HEMASA) HARMAN MCLEOD ([id number]) 1940 F Date Time Provider Department 09/22/22 11:30 AM WALLACE STONE During your visit today, we recorded the following information about you: Temperature Pulse Respiration Blood pressure 97.8 degrees 70/minute 16/minute 137/64 Weight Height 84.8 kg 1.549 m Wallace Stone MD 09/22/2022 5:19 PM Signed PATIENT NAME: Harman Mcleod CLINIC NO.: [id number] ATTENDING PHYSICIAN: Wallace Stone MD DATE OF [...] provisional grade 1 through 2, ER and GA greater than 95% positive, HER2/holden negative with an IHC score of 1+ and FISH negative at [facility]. This patient was subsequently referred to Dr. Iliana Gagnon for surgical consultation. Patient denies any previous history of abnormal mammograms and or breast biopsy. She has had a recent bone density in [place] and was diagnosed with osteoporosis and started on Prolia as well. Patient has a sister who was diagnosed with breast cancer at the age of 82 and her daughter diagnosed with breast cancer at the age of 37. She quit smoking approximately 4 years ago. 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 She [...] mouth daily at bedtime. Cut in half Osobk-9-LJP-EPA-Fish Oil 1,000 mg (120 mg-180 mg) cap [...] high r (more content not included)... Normal [facility] Destinee 09-22-2022 GERRYN Telephone ([email or web address]) HARMAN MCLEOD ([id number]) 1940 F Date Time Provider Department 09/22/22 [...] daily at bedtime. Cut in half - Fuzix-1-GLG-EPA-Fish Oil 1,000 mg (120 mg-180 mg) cap Take 2 g by mouth twice daily. - isosorbide mononitrate ER (IMDUR) 60 mg 24 hr tablet Take 60 mg by mouth twice daily. 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 Performed By: #### C [facility] ####[facility] [address] [place], [place] [address]IeMedardo Bowden INFLUENZA A AND B AGon 09-21 INFLUANEGH SEE BELOW Normal [facility] Comment on above: Result Comment: Nega tive for Flu A protein angiten. Infection due to Flu A cannot be ruled out. Flu A angiten in the sample may be below the detection limit of the test. Performed By: #### I NFLUAB ####[facility] [address] [place] [address]Dr. Omid Bowden INFLUBNEGH SEE BELOW Normal [facility] Comment on above: Result Comment: Nega tive for Flu B protein antigen. Infection due to Flu B cannot be ruled out. Flu B antigen in the sample may be below the detection limit of the test. Performed By: #### I NFLUAB ####[facility] [address] [place], [place] [address]Dr. Omid Bowden INFLUENZA A AG Negative Normal NEGATIVE SEE COMMENT [facility] Comment on above: Performed By: #### I NFLUAB ####[facility] [address] [place], [place] [address]Dr. Omid Bowden INFLUENZA B AG Negative Normal NEGATIVE SEE COMMENT [facility] Comment on above: Performed By: #### I NFLUAB ####[facility] [address] [place], [place] [address]Dr. Omid Bowden LIPID PROFILEon 09-16-2022 CHOL-HDL RATIO NORM SEE BELOW Normal [facility] Comment on above: Result Comment: 3.3 - 4.4 LOW RISK 4.4 - 7.1 AVERAGE RISK 7.1 - 11.0 MODERATE RISK >11.0 HIGH RISK Performed By: #### L IPID, BMP #### [facility] [address] [place] [address] Dr. Omid Bowden Cholesterol [Mass/Vol] 210 mg/dL Critically high <=200 [facility] Comment on above: Performed By: #### L IPID, BMP #### [facility] [address] [place] [address] [address] Omid Bowden Cholesterol in HDL [Mass/Vol] 49 mg/dL Normal 40-60 [facility] Comment on above: Performed By: #### L IPID, BMP #### [facility] [address] [place] [address] Dr. Omid Bowden Cholesterol in LDL [Mass/Vol] 84.2 mg/dL Normal [facility] Comment on above: Performed By: #### L IPID, BMP #### [facility] [address] [address] [address] Omid Bowden Cholesterol.total/Chol esterol in HDL [Mass ratio] 4.3 {ratio} Normal [facility] Comment on above: Performed By: #### L IPID, BMP #### [facility] [address] [place] [address] [address] Omid Bowden HDL NORMAL > or = 60 mg/dl - LO W CARDIOVASCULAR RISK <40 mg/dl - HIGH CARDIOVASCULAR RISK Normal [facility] Comment on above: Performed By: #### L IPID, BMP #### [facility] [address] [place] [address] Dr. Omid Bowden LDL CALC NORMAL SEE BELOW Normal [facility] Comment on above: Result Comment: <100 mg/dl OPTIMAL 100 - 129 mg/dl NEAR OR ABOVE OPTIMAL 130 - 159 mg/dl BORDERLINE HIGH 160 - 189 mg/dl HIGH >190 mg/dl VERY HIGH Performed By: #### L IPID, BMP #### [facility] [address] [place] [address] Dr. Omid Bowden Triglyceride [Mass/Vol] 384 mg/dL Critically high <=150 [facility] Comment on above: Performed By: #### L IPID, BMP #### [facility] [address] [place] [address] Dr. Omid Bowden VLDL CALC 76.8 mg/dL Normal [facility] Comment on above: Performed By: #### L IPID, BMP #### [facility] [address] [place] [address] Dr. Omid Bowden PROF CHEM 8 (BAS METB)on Anion gap [Moles/Vol] 10.8 mmol/L Normal [facility] Comment on above: Performed By: #### L IPID, BMP #### [facility] [address] [place] [address] Dr. Omid Bowden Calcium [Mass/Vol] 8.8 mg/dL Normal 8.5-10.1 [facility] Comment on above: Performed By: #### L IPID, BMP #### [facility] [address] [address] [address] Omid Bowden Chloride [Moles/Vol] 98 mmol/L Normal 98-107 [facility] Comment on above: Performed By: #### L IPID, BMP #### [facility] [address] [address] [address] Omid Bowden CO2 [Moles/Vol] 34.5 mmol/L Critically high 21.0-32.0 [facility] Comment on above: Performed By: #### L IPID, BMP #### [facility] [address] [address] [address] Omid Bowden Creatinine [Mass/Vol] 1.17 mg/dL Critically high 0.55-1.02 [facility] Comment on above: Performed By: #### L IPID, BMP #### [facility] [address] [place] [address] Dr. Omid Bowden EGFR-AF MARTINIQUAIS 54 mL/min/1.73m2 Critically low >=60 [facility] Comment on above: Performed By: #### L IPID, BMP #### [facility] [address] [address] [address] Omid Bowden EGFR-NON AF MARTINIQUAIS 45 mL/min/1.73m2 Critically low >=60 [facility] Comment on above: Performed By: #### L IPID, BMP #### [facility] [address] [address] [address] Omid Bowden Glucose [Mass/Vol] 193 mg/dL Critically high 74-106 [facility] Comment on above: Performed By: #### L IPID, BMP #### [facility] [address] [address] [address] Omid Bowden Potassium [Moles/Vol] 3.3 mmol/L Critically low 3.5-5.1 [facility] Comment on above: Performed By: #### L IPID, BMP #### [facility] [address] [address] [address] Omid Bowden Sodium [Moles/Vol] 140 mmol/L Normal 136-145 [facility] Comment on above: Performed By: #### L IPID, BMP #### [facility] [address] [place], [place] [address] Dr. Omid Bowden Urea nitrogen [Mass/Vol] 31.0 mg/dL Critically high 7.0-18.0 [facility] Comment on above: Performed By: #### L IPID, BMP #### [facility] [address] [place], [place] [address] Dr. Omid Bowden Urea nitrogen/Creatinine [Mass ratio] 26.5 mg/mg Normal [facility] Comment on above: Performed By: #### L IPID, BMP #### [facility] [address] [place], [place] [address] Dr. Omid Bowden Facesheeton 09-13-2022 Facesheet [id number]#1.0 0CD:127 Normal [facility] Consultation Noteon 09-01-20 Consultation Note [id number]#1.0 0CD:127 Normal [facility] ED Note-Physicianon 09-01-20 ED Note-Physician [id number]#1.0 0CD:127 Normal [facility] Lab Reportson 09-01-2022 Lab Reports [id number] 0CD:127 Normal [facility] Lab Reports [id number] 0CD:127 Normal [facility] Physician Referralon 022 Physician Referral [id number]#1.0 0CD:127 Normal [facility] C. DIFF PCRon 08-23-2022 C. DIFFICILE PCR Negative Normal NEGATIVE [facility] Comment on above: Performed By: #### C DIFPOC ####[facility] [address] [place], [place] [address]So. Yilan Bowden CBC AUTO DIFFon 08-19-2022 BASO # 0.0 103/ul Normal 0.0-0.1 [facility] Comment on above: Performed By: #### C BC ####[facility] [address] [place] [address]Dr. Omid Bowden Basophils/100 WBC (Bld) 0.3 % Normal 0.2-2.0 [facility] Comment on above: Performed By: #### C BC ####[facility] [address] [place] [address]Dr. Omid Bowden EO # 0.5 103/ul Normal 0.0-0.7 [facility] Comment on above: Performed By: #### C BC ####[facility] [address] [place] [address]Dr. Omid Kal Eosinophils/100 WBC (Bld) 3.2 % Normal 0.9-7.0 [facility] Comment on above: Performed By: #### C BC ####[facility] [address] [place] [address]Dr. Omid Bowden Erythrocyte distribution width (RBC) [Ratio] 14.1 % Normal 11.0-15.0 [facility] Comment on above: Performed By: #### C BC ####[facility] [address] [place] [address]Dr. Omid Bowden Hematocrit (Bld) [Volume fraction] 36.1 % Normal 36.0-48.0 [facility] Comment on above: Performed By: #### C BC ####[facility] [address] [place] [address]Dr. Omid Bowden Hemoglobin (Bld) [Mass/Vol] 11.7 g/dL Critically low 12.0-16.0 [facility] Comment on above: Performed By: #### C BC ####[facility] [address] [place] [address]Dr. Omid Kal IG # 0.08 10e3/ul Critically high 0.00-0.[address] [facility] Comment on above: Performed By: #### C BC ####[facility] [address] [place] [id number]. Omid Bowden IG % 0.5 % Normal 0.0-0.5 [facility] Comment on above: Performed By: #### C BC ####[facility] [address] [place] [id number]. Omid Bowden LYMPH # 1.2 103/ul Normal 1.2-3.8 [facility] Comment on above: Performed By: #### C BC ####[facility] [address] [place] [address]Dr. Omid Bowden Lymphocytes/100 WBC (Bld) 7.5 % Critically low 20.5-60.0 [facility] Comment on above: Performed By: #### C BC ####[facility] [address] [place] [id number]. Aixamegan Bowden MANUAL DIFF REQ NO Normal [facility] Comment on above: Performed By: #### C BC ####[facility] [address] [place] [id number]. Omid Bowden MCH (RBC) [Entitic mass] 29.2 pg Normal 26.7-34.0 [facility] Comment on above: Performed By: #### C BC ####[facility] [address] [place] [id number]. Omid Bowden MCHC (RBC) [Mass/Vol] 32.4 g/dL Normal 29.9-35.2 [facility] Comment on above: Performed By: #### C BC ####[facility] [address] [place] [id number]. Omid Bowden MCV (RBC) [Entitic vol] 90.0 fL Normal 81.0-99.0 [facility] Comment on above: Performed By: #### C BC ####[facility] [address] [place] [address]Dr. Omid Bowden MONO # 1.0 103/ul Critically high 0.3-0.8 [facility] Comment on above: Performed By: #### C BC ####[facility] [address] [place] [id number]. Omid Bowden Monocytes/100 WBC (Bld) 6.8 % Normal 1.7-12.0 [facility] Comment on above: Performed By: #### C BC ####[facility] [address] [place] [id number]. Omid Bowden NEUT # 12.5 103/ul Critically high 1.4-6.5 [facility] Comment on above: Performed By: #### C BC ####[facility] [address] [place] [id number]. Omid Bowden Neutrophils/100 WBC (Bld) 81.7 % Critically high 43.0-75.0 [facility] Comment on above: Performed By: #### C BC ####[facility] [address] [place] [address]Dr. Omid Bowden Platelet mean volume (Bld) [Entitic vol] 8.9 fL Critically low 9.5-13.5 [facility] Comment on above: Performed By: #### C BC ####[facility] [address] [place] [id number]. Omid Bowden PLT 252 103/ul Normal 150-450 [facility] Comment on above: Performed By: #### C BC ####[facility] [address] [place] [id number]. Omid Bowden RBC 4.01 106/ul Critically low 4.20-5.40 [facility] Comment on above: Performed By: #### C BC ####[facility] [address] [place] [id number]. Omid Bowden WBC 15.3 103/ul Critically high 4.0-11.0 [facility] Comment on above: Performed By: #### C BC ####[facility] [address] [place] [id number]. Omid Bowden IRONon 08-19-2022 Iron [Mass/Vol] 59.0 ug/dL Normal 50.0-170.0 [facility] Comment on above: Performed By: #### H GB #### [facility] [address] [place] [address] [address] Omid Bowden MAMMO POST BIOPSY RIGHTon MAMMO POST BIOPSY RIGHT Patient: HARMAN MCLEOD Exam Date: 08/19/2022 : 1940 Gender:F Ordering : DR MATEUS PERRY . Admission #: [id number] Family : Order #: [id number] CLICK HERE TO VIEW EXAM This report [...] MD on 09/06/2022 at 09:57 Normal [facility] PROTIMEon 08-19-2022 INR Coag (PPP) [Relative time] 0.99 {INR} Normal [facility] Comment on above: Performed By: #### P T, PTT ####[facility] [address] [place] [address]Dr. Omid Bowden INR GUIDELINES SEE BELOW Normal [facility] Comment on above: Result Comment: PERLITA RED INR: 2.0 - 3.0 CONDITIONS NOT LISTED BELOW 2.5 - 3.5 FOR PROSTHETIC HEART VALVE REPLACEMENT 2.5 - 3.5 RECURRENT THROMBOSIS Performed By: #### P T, PTT ####[facility] [address] [place] [address]Dr. Omid Bowden PT Coag (PPP) [Time] 10.7 s Normal 9.0-11.6 [facility] Comment on above: Performed By: #### P T, PTT ####[facility] [address] [place], [place] [address]HpMedardo Bowden PTTon 08-19-2022 aPTT Coag (Bld) [Time] 26.0 s Normal 22.3-36.2 [facility] Comment on above: Performed By: #### P T, PTT ####[facility] [address] [place], [place] [address]Uo. Omid Bowden US VAC ASST BX BRST RT W CLI Jose Maria 08-19-2022 US VAC ASST BX BRST RT W CLIP Patient: HARMAN MCLEOD Exam Date: 08/19/2022 : 1940 Gender:F Ordering : DR MATEUS PERRY . Admission #: [id number] Family : Order #: [id number] CLICK HERE TO VIEW EXAM This report [...] MD on 09/06/2022 at 09:55 Normal [facility] CULTURE URINEon 08-16-2022 CULTURE URINE Isolate 1 [...] R F Nitrofurantoin <=16 S F Normal [facility] Comment on above: Performed By: #### U RCX ####[facility] [address] [place] [address]Dr. Omid Bowden CARDIAC ADILIA ADMITon 022 CK [Catalytic activity/Vol] 128 U/L Normal 26-192 [facility] Comment on above: Performed By: #### L IPID, BMP #### [facility] [address] [place] [address] Dr. Omid Bowden CK.MB [Mass/Vol] 2.88 ng/mL Normal <=3.60 [facility] Comment on above: Performed By: #### L IPID, BMP #### [facility] [address] [place] [address] Dr. Omid Bowden HSTROP 24.1 pg/mL Normal 4.0-51.3 [facility] Comment on above: Result Comment: CUT- OFF POINTS HAVE BEEN ESTABLISHED BASED ON THE FOURTH UNIVERSAL DEFINITIONS OF MYOCARDIAL INFARCTION. THE UPPER REFERENCE LIMIT (URL) OF TROPONIN, DEFINED THE 99TH PERCENTILE OF cTnI DISTRIBUTION IN A REFERENCE POPULATION, HAS BEEN CONFIRMED THE DECISION THRESHOLD FOR MO DIAGNOSIS. Performed By: #### L IPID, BMP #### [facility] [address] [address] [address] Omid Bowden JACINTA 61 ng/mL Normal 9-82 [facility] Comment on above: Performed By: #### L IPID, BMP #### [facility] [address] [address] [address] Omid Bowden CBC AUTO DIFFon 08-14-2022 BASO # 0.0 103/ul Normal 0.0-0.1 [facility] Comment on above: Performed By: #### H GB #### [facility] [address] [address] [address] Omid Bowden Basophils/100 WBC (Bld) 0.4 % Normal 0.2-2.0 [facility] Comment on above: Performed By: #### H GB #### [facility] [address] [address] [address] Omid Bowden EO # 0.3 103/ul Normal 0.0-0.7 [facility] Comment on above: Performed By: #### H GB #### [facility] [address] [address] [address] Omid Bowden Eosinophils/100 WBC (Bld) 2.6 % Normal 0.9-7.0 [facility] Comment on above: Performed By: #### H GB #### [facility] [address] [place] [address] Dr. Omid Bowden Erythrocyte distribution width (RBC) [Ratio] 14.1 % Normal 11.0-15.0 [facility] Comment on above: Performed By: #### H GB #### [facility] [address] [place] [address] Dr. Omid Bowden Hematocrit (Bld) [Volume fraction] 35.5 % Critically low 36.0-48.0 [facility] Comment on above: Performed By: #### H GB #### [facility] [address] [place] [address] Dr. Omid Bowden Hemoglobin (Bld) [Mass/Vol] 11.6 g/dL Critically low 12.0-16.0 [facility] Comment on above: Performed By: #### H GB #### [facility] [address] [place] [address] Dr. Omid Bowden IG # 0.06 10e3/ul Critically high 0.00-0.03 [facility] Comment on above: Performed By: #### H GB #### [facility] [address] [place] [address] Dr. Omid Bowden IG % 0.6 % Critically high 0.0-0.5 [facility] Comment on above: Performed By: #### H GB #### [facility] [address] [place] [address] Dr. Omid Bowden LYMPH # 3.4 103/ul Normal 1.2-3.8 [facility] Comment on above: Performed By: #### H GB #### [facility] [address] [place] [address] Dr. Omid Bowden Lymphocytes/100 WBC (Bld) 35.5 % Normal 20.5-60.0 [facility] Comment on above: Performed By: #### H GB #### [facility] [address] [place] [address] Dr. Omid Bowden MANUAL DIFF REQ NO Normal [facility] Comment on above: Performed By: #### H GB #### [facility] [address] [place] [address] Dr. Omid Bowden MCH (RBC) [Entitic mass] 29.5 pg Normal 26.7-34.0 [facility] Comment on above: Performed By: #### H GB #### [facility] [address] [place] [address] Dr. Omid Bowden MCHC (RBC) [Mass/Vol] 32.7 g/dL Normal 29.9-35.2 [facility] Comment on above: Performed By: #### H GB #### [facility] [address] [place] [address] Dr. Omid Bowden MCV (RBC) [Entitic vol] 90.3 fL Normal 81.0-99.0 [facility] Comment on above: Performed By: #### H GB #### [facility] [address] [place] [address] Dr. Omid Bowden MONO # 1.0 103/ul Critically high 0.3-0.8 [facility] Comment on above: Performed By: #### H GB #### [facility] [address] [place] [address] Dr. Omid Bowden Monocytes/100 WBC (Bld) 10.5 % Normal 1.7-12.0 [facility] Comment on above: Performed By: #### H GB #### [facility] [address] [place] [address] [address] Omid Bowden NEUT # 4.8 103/ul Normal 1.4-6.5 [facility] Comment on above: Performed By: #### H GB #### [facility] [address] [place] [address] [address] Omid Bowden Neutrophils/100 WBC (Bld) 50.4 % Normal 43.0-75.0 [facility] Comment on above: Performed By: #### H GB #### [facility] [address] [place] [address] [address] Omid Bowden Platelet mean volume (Bld) [Entitic vol] 9.1 fL Critically low 9.5-13.5 [facility] Comment on above: Performed By: #### H GB #### [facility] [address] [place] [address] [address] Omid Bowden PLT 276 103/ul Normal 150-450 [facility] Comment on above: Performed By: #### H GB #### [facility] [address] [place] [address] [address] Omid Bowden RBC 3.93 106/ul Critically low 4.20-5.40 [facility] Comment on above: Performed By: #### H GB #### [facility] [address] [place] [address] [address] Omid Bowden WBC 9.5 103/ul Normal 4.0-11.0 [facility] Comment on above: Performed By: #### H GB #### [facility] [address] [place] [address] [address] Omid Bowden ER URINE PROFILEon 2 Bilirubin Ql (U) Negative Normal NEGATIVE [facility] Comment on above: Performed By: #### U MICRO, ERUR ####[facility] [address] [place] [address]Dr. Omid Bowden Clarity (U) CLEAR Normal CLEAR [facility] Comment on above: Performed By: #### U MICRO, ERUR ####[facility] [address] [place] [address]Dr. Omid Bowden Color (U) LT. YELLOW Normal YELLOW [facility] Comment on above: Performed By: #### U MICRO, ERUR ####[facility] [address] [place] [address]Dr. Omid Bowden ERUAHD A micrscopic examination will be performed if indicated. Normal [facility] Comment on above: Performed By: #### U MICRO, ERUR ####[facility] [address] [place] [address]Dr. Omid Bowden Glucose Ql (U) Negative Normal NEGATIVE [facility] Comment on above: Performed By: #### U MICRO, ERUR ####[facility] [address] [place], [place] [address]Dr. Omid Bowden Hemoglobin Ql (U) Negative Normal NEGATIVE [facility] Comment on above: Performed By: #### U MICRO, ERUR ####[facility] [address] [place], [place] [address]Dr. Omid Bowden Ketones Ql (U) Negative Normal NEGATIVE [facility] Comment on above: Performed By: #### U MICRO, ERUR ####[facility] [address] [place], [place] [address]Dr. Omid Bowden LEUKOCYTES TRACE Abnormal NEGATIVE [facility] Comment on above: Performed By: #### U MICRO, ERUR ####[facility] [address] [place] [address]Dr. Omid Bowden Nitrite Ql (U) Negative Normal NEGATIVE [facility] Comment on above: Performed By: #### U MICRO, ERUR ####[facility] [address] [place], [place] [address]Dr. Omid Bowden pH (U) 6.0 [pH] Normal 5-9 [facility] Comment on above: Performed By: #### U MICRO, ERUR ####[facility] [address] [place], [place] [address]Dr. Omid Bowden SPEC GRAVITY 1.020 Normal 1.005-<=1.0 25 [facility] Comment on above: Performed By: #### U MICRO, ERUR ####[facility] [address] [place] [address]DrMedardo Bowden UA PROTEIN Negative Normal NEGATIVE/ TRACE [facility] Comment on above: Performed By: #### U MICRO, ERUR ####[facility] [address] [place] [address]Dr. Omid Bowden UR MICRO IND INDICATED Normal [facility] Comment on above: Performed By: #### U MICRO, ERUR ####[facility] [address] [place] [address]Dr. Omid Bowden Urobilinogen Qn (U) 0.2 {Jose'U}/dL Normal 0.2 - 1. 0 [facility] Comment on above: Performed By: #### U MICRO, ERUR ####[facility] [address] [place], [place] [address]DrMedardo Bowden OCC BLD IMMUNO SCREENon OCCULT BLOOD Negative Normal NEGATIVE [facility] Comment on above: Performed By: #### O BSCRN #### [facility] [facility] [address] [place] [address] Dr. Omid Bowden PROF CHEM 8 (BAS METB)on Anion gap [Moles/Vol] 5.5 mmol/L Normal [facility] Comment on above: Performed By: #### L IPID, BMP #### [facility] [address] [place] [address] Dr. Omid Bowden Calcium [Mass/Vol] 8.6 mg/dL Normal 8.5-10.1 [facility] Comment on above: Performed By: #### L IPID, BMP #### [facility] [address] [place] [address] Dr. Omid Bowden Chloride [Moles/Vol] 103 mmol/L Normal 98-107 [facility] Comment on above: Performed By: #### L IPID, BMP #### [facility] [address] [place] [address] Dr. Omid Bowden CO2 [Moles/Vol] 31.8 mmol/L Normal 21.0-32.0 [facility] Comment on above: Performed By: #### L IPID, BMP #### [facility] [address] [address] [address] Omid Bowden Creatinine [Mass/Vol] 0.99 mg/dL Normal 0.55-1.02 [facility] Comment on above: Performed By: #### L IPID, BMP #### [facility] [address] [address] [address] Omid Bowden EGFR-AF MARTINIQUAIS >60 Normal >=60 [facility] Comment on above: Performed By: #### L IPID, BMP #### [facility] [address] [address] [address] Omid Bowden EGFR-NON AF MARTINIQUAIS 54 mL/min/1.73m2 Critically low >=60 [facility] Comment on above: Performed By: #### L IPID, BMP #### [facility] [address] [address] [address] Omid Bowden Glucose [Mass/Vol] 112 mg/dL Critically high 74-106 T [facility] Comment on above: Performed By: #### L IPID, BMP #### [facility] [address] [address] [address] Omid Bowden Potassium [Moles/Vol] 3.3 mmol/L Critically low 3.5-5.1 [facility] Comment on above: Performed By: #### L IPID, BMP #### [facility] [address] [address] [address] Omid Bowden Sodium [Moles/Vol] 137 mmol/L Normal 136-145 [facility] Comment on above: Performed By: #### L IPID, BMP #### [facility] [address] [address] [address] Omid Bowden Urea nitrogen [Mass/Vol] 20.0 mg/dL Critically high 7.0-18.0 [facility] Comment on above: Performed By: #### L IPID, BMP #### [facility] [address] [address] [address] Omid Bowden Urea nitrogen/Creatinine [Mass ratio] 20.2 mg/mg Normal [facility] Comment on above: Performed By: #### L IPMOHSEN, BMP #### [facility] [address] [address] [address] Omid Bowden URINE MICROSCOPIC ONLYon BACTERIA TRACE Abnormal NONE SEEN [facility] Comment on above: Performed By: #### U MICRO, ERUR ####[facility] [address] [address]Dr. Omid Bowden Bacteria identified Cx Nom (U) INDICATED Normal [facility] Comment on above: Performed By: #### U MICRO, ERUR ####[facility] [address] [address]Dr. Omid Bowden CAST NONE SEEN Normal NONE SEEN [facility] Comment on above: Performed By: #### U MICRO, ERUR ####[facility] [address] [address]Dr. Omid Bowden Crystals LM Nom (Urine sed) NONE SEEN Normal NONE SEEN [facility] Comment on above: Performed By: #### U MICRO, ERUR ####[facility] [address] [address]Dr. Omid Bowden Epithelial cells LM Ql (Urine sed) FEW Abnormal NONE SEEN /RARE [facility] Comment on above: Performed By: #### U MICRO, ERUR ####[facility] [address] [place], [place] [address]Dr. Omid Bowden MUCOUS NONE SEEN Normal NONE SEEN [facility] Comment on above: Performed By: #### U MICRO, ERUR ####[facility] [address] [address]Dr. Omid Bowden RBC 0-2 Normal 0-2 [facility] Comment on above: Performed By: #### U MICRO, ERUR ####[facility] [address] [place], [place] [address]Dr. Omid Bowden WBC 20-50 Abnormal NONE SEEN [facility] Comment on above: Performed By: #### U MICRO, ERUR ####[facility] [address] [place], [place] [address]RnDr. Omid Bowden XR CHEST 1 Von 08-14-2022 [...] [place] Date: 2022-08-14 00:46 Normal [facility] Covid-19 PCR (CVDTBH)on SARS-CoV-2 (COVID-19) RNA MARII+probe Ql (Unsp spec) Not detected Normal NOT DETECTED [facility] Comment on above: Result Comment: When diagnostic [...] for this test is supported by the [place] of Health and Human Service's declaration that [...] used). Performed By: #### C VDTB #### [facility] [address] [place], [place] [address] Dr. Omid Bowden MG MAMM RT DIAG FUon 022 MG MAMM RT DIAG FU Patient: HARMAN MCLEOD Exam Date: 08/08/2022 : 1940 Gender:F Ordering : DR MATEUS PERRY . Admission #: [id number] Family : Order #: [id number] CLICK HERE TO VIEW EXAM RADIOLOGY REPORT [...] uterine cancer at age 39. LOCATION: [facility] BREAST COMPOSITION: Scattered areas fibroglandular density. FINDINGS: [...] George M.D. on 08/08/2022 at 15:28 Normal [facility] PROF CHEM 8 (BAS METB)on Anion gap [Moles/Vol] 9.3 mmol/L Normal [facility] Comment on above: Performed By: #### B MP #### [facility] [address] [address] [address] Omid Bowden Calcium [Mass/Vol] 8.1 mg/dL Critically low 8.5-10.1 [facility] Comment on above: Performed By: #### B MP #### [facility] [address] [address] [address] Omid Bowden Chloride [Moles/Vol] 100 mmol/L Normal 98-107 [facility] Comment on above: Performed By: #### B MP #### [facility] [address] [address] [address] Omid Bowden CO2 [Moles/Vol] 31.9 mmol/L Normal 21.0-32.0 [facility] Comment on above: Performed By: #### B MP #### [facility] [address] [address] [address] Omid Bowden Creatinine [Mass/Vol] 1.25 mg/dL Critically high 0.55-1.02 [facility] Comment on above: Performed By: #### B MP #### [facility] [address] [place] [address] Dr. Omid Bowden EGFR-AF MARTINIQUAIS 50 mL/min/1.73m2 Critically low >=60 [facility] Comment on above: Performed By: #### B MP #### [facility] [address] [place] [address] Dr. Omid Bowden EGFR-NON AF MARTINIQUAIS 41 mL/min/1.73m2 Critically low >=60 [facility] Comment on above: Performed By: #### B MP #### [facility] [address] [place] [address] Dr. Omid Bowden Glucose [Mass/Vol] 215 mg/dL Critically high 74-106 [facility] Comment on above: Performed By: #### B MP #### [facility] [address] [address] [address] Omid Bowden Potassium [Moles/Vol] 3.2 mmol/L Critically low 3.5-5.1 [facility] Comment on above: Performed By: #### B MP #### [facility] [address] [address] [address] Omid Bowden Sodium [Moles/Vol] 138 mmol/L Normal 136-145 [facility] Comment on above: Performed By: #### B MP #### [facility] [address] [address] [address] Omid Bowden Urea nitrogen [Mass/Vol] 32.0 mg/dL Critically high 7.0-18.0 [facility] Comment on above: Performed By: #### B MP #### [facility] [address] [place], [place] [address] Dr. Omid Bowden Urea nitrogen/Creatinine [Mass ratio] 25.6 mg/mg Normal [facility] Comment on above: Performed By: #### B MP #### [facility] [address] [place], [place] [address] Dr. Omid Bowden US BREAST RIGHT LIMITEDon US BREAST RIGHT LIMITED Patient: HARMAN MCLEOD Exam Date: 08/08/2022 : 1940 Gender:F Ordering : DR MATEUS PERRY . Admission #: [id number] Family : Order #: [id number] CLICK HERE TO VIEW EXAM RADIOLOGY REPORT [...] uterine cancer at age 39. LOCATION: [facility] BREAST COMPOSITION: Scattered areas fibroglandular density. FINDINGS: [...] M.D. on 08/08/2022 at 15:28 Normal [facility] CALCIUMon 08-02-2022 Calcium [Mass/Vol] 8.9 mg/dL Normal 8.5-10.1 [facility] Comment on above: Performed By: #### H GB #### [facility] [address] [address] [address] Omid Bowden CREATININEon 08-02-2022 Creatinine [Mass/Vol] 1.19 mg/dL Critically high 0.55-1.02 [facility] Comment on above: Performed By: #### H GB #### [facility] [address] [address] [address] Omid Bowden EGFR-AF MARTINIQUAIS 53 mL/min/1.73m2 Critically low >=60 [facility] Comment on above: Performed By: #### H GB #### [facility] [address] [place] [address] Dr. Omid Bowden EGFR-NON AF MARTINIQUAIS 44 mL/min/1.73m2 Critically low >=60 [facility] Comment on above: Performed By: #### H GB #### [facility] [address] [place] [address] Dr. Omid Bowden MG MAMM SCREEN 3D DAVID CADon 07-19-2022 MG MAMM SCREEN 3D DAVID CAD Patient: HARMAN MCLEOD Exam Date: 07/19/2022 : 1940 Gender:F Ordering : DR MATEUS PERRY . Admission #: [id number] Family : Order #: [id number] CLICK HERE TO VIEW EXAM RADIOLOGY REPORT [...] Bauman MD on 07/20/2022 at 07:33 Normal [facility] XR DEXA BONE DENSITYon 07-19 XR DEXA [...] by: JUDSON BAUMAN Date: 2022-07-19 20:17 Normal [facility] CALCIUM, IONIC (POC)on 06-28 POC Ionized Calcium 1.21 mmol/L 1.15 - 1 .33 mmol/L [facility] CH[facility] ([facility])on 06-28-2022 Chloride [Moles/Vol] 103 mmol/L 98 - 10 7 mmol/L [facility] Creatinine W/GFR Point of Ca reon 06-28-2022 Creatinine [Mass/Vol] 0.93 mg/dL 0.51 - 1.19 mg/dL [facility]oo eGFR, POC mL/min/1.73 m2 [facility] Comment on above: Effective Jun 13, 2022 [...] mmol/L High 0.56 - 1.39 mmol/L [facility] No Panel Informationon 06-28 Interpretation and review of laboratory results Abnormal [facility] POC Glucose Fingerstickon Glucose [Mass/Vol] 135 mg/dL High 65 - 105 mg/dL [facility] Interpretation and review of laboratory results Abnormal [facility] POCT Glucoseon 06-28-2022 Glucose [Mass/Vol] 147 mg/dL High 74 - 100 mg/dL [facility] POCT urea (BUN)on 06-28-2022 Urea nitrogen [Mass/Vol] 20 mg/dL 8 - 26 mg/dL [facility] POTASSIUM (POC)on 06-28-2022 Potassium [Moles/Vol] 3.7 mmol/L 3.5 - 4.5 mmol/L [facility] SODIUM (POC)on 06-28-2022 Sodium [Moles/Vol] 141 mmol/L 138 - 146 mmol/L [facility] PROF CHEM 8 (BAS METB)on Anion gap [Moles/Vol] 9.0 mmol/L Normal [facility] Comment on above: Performed By: #### B MP ####[facility] [address] [address]Dr. Omid Bowden Calcium [Mass/Vol] 9.0 mg/dL Normal 8.5-10.1 [facility] Comment on above: Performed By: #### B MP ####[facility] [address] [address]Dr. Omid Bowden Chloride [Moles/Vol] 98 mmol/L Normal 98-107 [facility] Comment on above: Performed By: #### B MP ####[facility] [address] [address]Dr. Omid Bowden CO2 [Moles/Vol] 33.2 mmol/L Critically high 21.0-32.0 [facility] Comment on above: Performed By: #### B MP ####[facility] [address] [address]Dr. Omid Bowden Creatinine [Mass/Vol] 1.32 mg/dL Critically high 0.55-1.02 [facility] Comment on above: Performed By: #### B MP ####[facility] [address] [place], [place] [address]Dr. Omid Kal EGFR-AF MARTINIQUAIS 47 mL/min/1.73m2 Critically low >=60 [facility] Comment on above: Performed By: #### B MP ####[facility] [address] [place], [place] [address]Dr. Aixamegan Kal EGFR-NON AF MARTINIQUAIS 39 mL/min/1.73m2 Critically low >=60 [facility] Comment on above: Performed By: #### B MP ####[facility] [address] [place], [place] [address]Dr. Aixamegan Bowden Glucose [Mass/Vol] 220 mg/dL Critically high 74-106 T [facility] Comment on above: Performed By: #### B MP ####[facility] [address] [place], [place] [address]Dr. Omid Bowden Potassium [Moles/Vol] 3.2 mmol/L Critically low 3.5-5.1 [facility] Comment on above: Performed By: #### B MP ####[facility] [address] [place], [place] [address]Dr. Omid Bowden Sodium [Moles/Vol] 137 mmol/L Normal 136-145 [facility] Comment on above: Performed By: #### B MP ####[facility] [address] [place], [place] [address]Dr. Omid Kal Urea nitrogen [Mass/Vol] 31.0 mg/dL Critically high 7.0-18.0 [facility] Comment on above: Performed By: #### B MP ####[facility] [address] [place] [address]N[address]. Omid Bowden Urea nitrogen/Creatinine [Mass ratio] 23.5 mg/mg Normal [facility] Comment on above: Performed By: #### B ####[facility] [address] [place], [place] [address]Fx. Omid Bowden ECHOCARDIO M/2D COMPLETEon 0 04-12-2022 ECHOCARDIO M/2D COMPLETE Patient: HARMAN MCLEOD Exam Date: 04/12/2022 : 1940 Gender:F Ordering : SONALI [facility] Admission #: [id number] Family : Order #: [id number] CLICK HERE TO VIEW EXAM ECHOCARDIOGRAM REPORT [...] Keyes M.D. on 04/12/2022 at 19:15 Normal [facility] PROF CHEM 8 (BAS METB)on Anion gap [Moles/Vol] 12.4 mmol/L Normal [facility] Comment on above: Performed By: #### B MP ####[facility] [address] [address]Dr. Omid Bowden Calcium [Mass/Vol] 9.1 mg/dL Normal 8.5-10.1 [facility] Comment on above: Performed By: #### B MP ####[facility] [address] [address]Dr. Omid Bowden Chloride [Moles/Vol] 100 mmol/L Normal 98-107 [facility] Comment on above: Performed By: #### B MP ####[facility] [address] [place], [place] [address]Dr. Omid Bowden CO2 [Moles/Vol] 33.0 mmol/L Critically high 21.0-32.0 [facility] Comment on above: Performed By: #### B MP ####[facility] [address] [place], [place] [address]Dr. Omid Bowden Creatinine [Mass/Vol] 1.15 mg/dL Critically high 0.55-1.02 [facility] Comment on above: Performed By: #### B MP ####[facility] [address] [address]Dr. Omid Bowden EGFR-AF MARTINIQUAIS 55 mL/min/1.73m2 Critically low >=60 [facility] Comment on above: Performed By: #### B MP ####[facility] [address] [place], [place] [address]Dr. Omid Bowden EGFR-NON AF MARTINIQUAIS 46 mL/min/1.73m2 Critically low >=60 [facility] Comment on above: Performed By: #### B MP ####[facility] [address] [place], [place] [address]Dr. Omid Bowden Glucose [Mass/Vol] 167 mg/dL Critically high 74-106 T [facility] Comment on above: Performed By: #### B MP ####[facility] [address] [address]Dr. Omid Bowden Potassium [Moles/Vol] 3.4 mmol/L Critically low 3.5-5.1 [facility] Comment on above: Performed By: #### B MP ####[facility] [address] [address]Dr. Omid Bowden Sodium [Moles/Vol] 142 mmol/L Normal 136-145 [facility] Comment on above: Performed By: #### B MP ####[facility] [address] [address]Dr. Omid Bowden Urea nitrogen [Mass/Vol] 23.0 mg/dL Critically high 7.0-18.0 [facility] Comment on above: Performed By: #### B MP ####[facility] [address] [place], [place] [address]Dr. Omid Bowden Urea nitrogen/Creatinine [Mass ratio] 20.0 mg/mg Normal [facility] Comment on above: Performed By: #### B MP ####[facility] [address] [place], [place] [address]Dr. Omid Bowden SYMPTOMATIC COVID-19 ANTIGEN on 03-16-2022 EUA Statement SEE BELOW Normal [facility] Comment on above: Result Comment: [...] Performed By: #### L IPID, BMP #### [facility] [address] [place] [address] Dr. Omid oBwden SARS-CoV-2 (COVID-19) RNA MARII+probe Ql (Unsp spec) Positive Critically abnormal NEGATIVE [facility] Comment on above: Performed By: #### L IPID, BMP #### [facility] [address] [place] [address] Dr. Omid Bowden HEMOGLOBINon 03-15-2022 Hemoglobin (Bld) [Mass/Vol] 12.3 g/dL Normal 12.0-16.0 [facility] Comment on above: Performed By: #### H GB #### [facility] [address] [place] [address] Dr. Omid Bowden BNPon 02-15-2022 Natriuretic peptide B (Bld) [Mass/Vol] 598.0 pg/mL Normal <=1,800.0 [facility] Comment on above: Performed By: #### L IPID, BMP #### [facility] [address] [place] [address] Dr. Omid Bowden PROF CHEM 8 (BAS METB)on Anion gap [Moles/Vol] 11.9 mmol/L Normal [facility] Comment on above: Performed By: #### L IPID, BMP #### [facility] [address] [place] [address] Dr. Omid Bowden Calcium [Mass/Vol] 9.1 mg/dL Normal 8.5-10.1 [facility] Comment on above: Performed By: #### L IPID, BMP #### [facility] [address] [place] [address] Dr. Omid Bowden Chloride [Moles/Vol] 98 mmol/L Normal 98-107 [facility] Comment on above: Performed By: #### L IPID, BMP #### [facility] [address] [place] [address] Dr. Omid Bowden CO2 [Moles/Vol] 33.2 mmol/L Critically high 21.0-32.0 [facility] Comment on above: Performed By: #### L IPID, BMP #### [facility] [address] [address] [address] Omid Bowden Creatinine [Mass/Vol] 1.28 mg/dL Critically high 0.55-1.02 [facility] Comment on above: Performed By: #### L IPID, BMP #### [facility] [address] [address] [address] Omid Bowden EGFR-AF MARTINIQUAIS 49 mL/min/1.73m2 Critically low >=60 [facility] Comment on above: Performed By: #### L IPID, BMP #### [facility] [address] [place] [address] Dr. Omid Bowden EGFR-NON AF MARTINIQUAIS 40 mL/min/1.73m2 Critically low >=60 [facility] Comment on above: Performed By: #### L IPID, BMP #### [facility] [address] [address] [address] Omid Bowden Glucose [Mass/Vol] 182 mg/dL Critically high 74-106 [facility] Comment on above: Performed By: #### L IPID, BMP #### [facility] [address] [address] [address] Omid Bowden Potassium [Moles/Vol] 3.1 mmol/L Critically low 3.5-5.1 [facility] Comment on above: Performed By: #### L IPID, BMP #### [facility] [address] [address] [address] Omid Bowden Sodium [Moles/Vol] 140 mmol/L Normal 136-145 [facility] Comment on above: Performed By: #### L IPID, BMP #### [facility] [address] [address] [address] Omid Bowden Urea nitrogen [Mass/Vol] 30.0 mg/dL Critically high 7.0-18.0 [facility] Comment on above: Performed By: #### L IPID, BMP #### [facility] [address] [address] [address] Omid Bowden Urea nitrogen/Creatinine [Mass ratio] 23.4 mg/mg Normal [facility] Comment on above: Performed By: #### L IPID, [facility] #### [facility] [address] [address] [address] Omid Bowden XR CHEST 2 Von [...] ALFONSO GEORGE Date: 2022-02-09 11:53 Normal [facility] No Panel Informationon 12-13 [facility] POCT Glucoseon 12-13-2021 Glucose [Mass/Vol] 196 mg/dL High 74 - 100 mg/dL [facility] Interpretation and review of laboratory results Abnormal [facility] POTASSIUM (POC)on 12-13-2021 Potassium [Moles/Vol] 3.7 mmol/L 3.5 - 4.5 mmol/L [facility] TYPE AND SCREENon 12-10-2021 ABO/Rh Positive [facility] Arm Band Number BE [id number] [facility] Expiration Date 12/16/2021,2359 [employer] EKG 12 leadOrdered By: Dennis Garcia on 12-07-2021 Atrial Rate 66 BPM [facility] Work Phone: P Orange 67 degrees [facility] Work Phone: P-R Interval 126 ms [facility] Work Phone: Q-T Interval 466 ms [facility] Work Phone: QRS Duration 150 ms [facility] Work Phone: QTc Calculation (Bazett) 488 ms [facility] Work Phone: R Orange 32 degrees [facility] Work Phone: T Orange 161 degrees [facility] Work Phone: Ventricular Rate 66 BPM [facility] Work Phone: [facility] Work Phone: EKG 12 leadon 12-07-2021 Sinus [...] wave inversion now evident in Inferior leads [facility] Work Phone: CBC auto differentialon 11-10 Absolute Eos # 0.13 [facility] th Absolute Immature Granulocyte 0.12 [facility] Absolute Lymph # 3.18 [facility] alth Absolute [place] # 1.22 High [facility] lt Basophils (Bld) [#/Vol] 0.05 10*3/uL [facility] Basophils/100 WBC (Bld) 0 % 0 - 2 % [facility] Eosinophils/100 WBC (Bld) 1 % 1 - 4 % [facility] Hematocrit (Bld) [Volume fraction] 38.4 % 36.3 - 47.1 % [facility] Hemoglobin.gastrointes tinal spec 1 Ql (Stl) 12.2 g/dL 11.9 - 15.1 g/dL [facility] Immature granulocytes/100 WBC (Bld) 1 % High 0 [facility] Interpretation and review of laboratory results Abnormal [facility] Lymphocytes/100 WBC (Bld) 25 % 24 - 43 % [facility] MCH (RBC) [Entitic mass] 29.9 pg 25.2 - 33.5 pg [facility] MCHC (RBC) [Mass/Vol] 31.8 g/dL 28.4 - 34.8 g/dL [facility] MCV (RBC) [Entitic vol] 94.1 fL 82.6 - 102.9 fL [facility] Monocytes/100 WBC (Bld) 10 % 3 - 12 % [facility] NRBC Automated 0.0 0.0 per 100 WBC [facility] Platelet distribution width (Bld) [Ratio] 14.5 % High 11.8 - 14.4 % [facility] Platelet mean volume (Bld) [Entitic vol] 10.1 fL 8.1 - 13.5 fL [facility] Platelets (Bld) [#/Vol] 266 10*3/uL [facility] RBC (Bld) [#/Vol] 4.08 10*6/uL 3.95 - 5.1 1 m/uL [facility] RBC (Bld) [#/Vol] ANISOCYTOSIS PRESENT [facility] Segmented neutrophils/100 WBC (Bld) 63 % 36 - 65 % [facility] Segs Absolute 7.88 [facility] W[facility] (Bld) [#/Vol] 12.6 10*3/uL High [facility] Comprehensive Metabolic Pane l w/ Reflex to MGon 12-06-2021 Albumin [Mass/Vol] 3.7 g/dL 3.5 - 5.2 g/dL [facility] Albumin/Globulin [Mass ratio] 1.1 {ratio} [facility] ALP (Bld) [Catalytic activity/Vol] 93 U/L 35 - 104 U/L [facility] ALT [Catalytic activity/Vol] 12 U/L 5 - 33 U/L [facility] Anion gap [Moles/Vol] 14 mmol/L 9 - 17 mmol/L [facility] AST [Catalytic activity/Vol] 12 U/L <32 [facility] Bilirubin [Mass/Vol] 0.25 mg/dL Low 0.3 - 1 .2 mg/dL [facility] Calcium [Mass/Vol] 9.1 mg/dL 8.6 - 10. 4 mg/dL [facility] Chloride [Moles/Vol] 95 mmol/L Low 98 - 10 7 mmol/L [facility] CO2 [Moles/Vol] 30 mmol/L 20 - 31 mmol/L [facility] Creatinine [Mass/Vol] 1.07 mg/dL High 0.50 - 0.90 mg/dL [facility] Free PSA/Total PSA [Mass fraction] 7.2 g/dL 6.4 - 8.3 g/dL [facility] GFR 60 mL/min Low >60 [facility] GFR Non- 49 mL/min Low >60 [facility] GFR/1.73 sq M.predicted MDRD (S/P/Bld) [Vol rate/Area] [facility] Comment on above: Average GFR for 70 o r more years old: 75 mL/min/1.73sq m Chronic Kidney Disease: <60 mL/min/1.73sq m Kidney failure: <15 mL/min/1.73sq m eGFR calculated using average adult body mass. Additional eGFR calculator available at: http://www.[employer]/multiple_crcl_2012.htm Glucose [Mass/Vol] 188 mg/dL High 70 - 99 mg/dL [facility] Interpretation and review of laboratory results Abnormal [facility] Potassium [Moles/Vol] 3.3 mmol/L Low 3.7 - 5.3 mmol/L [facility] Sodium [Moles/Vol] 139 mmol/L 135 - 144 mmol/L [facility] Urea nitrogen (BldV) [Mass/Vol] 22 mg/dL 8 - 23 mg/dL [facility] Magnesiumon 12-06-2021 Magnesium [Mass/Vol] 1.6 mg/dL 1.6 - 2 .6 mg/dL [facility] No Panel Informationon 12-06 No acute process. [facility] CONSOLIDATED EXAMINATION: TWO XRAY VIEWS OF [...] The osseous structures are without acute process. [facility] Kael Freeman MD - 12/06/2021 [...] without acute process. IMPRESSION: No acute process. [employer] Phone: Radiology Study observation (narrative) [employer] Phone: No Panel InformationOrdered By: Kael Freeman on 12-06-2021 [employer] Phone: Creatinine W/GFR Point of Ca reOrdered By: Kin Abarca on 06-15-2021 Creatinine [Mass/Vol] 0.89 mg/dL 0.51 - 1.19 mg/dL [employer] Phone: GFR Non- >60 >60 mL/min [employer] Phone: GFR/1.73 sq M.predicted MDRD (S/P/Bld) [Vol rate/Area] mL/min/{1.73_m2} >60 mL/min [employer] Phone: GFR/1.73 sq M.predicted MDRD (S/P/Bld) [Vol rate/Area] [employer] Phone: Comment on above: Average GFR for 70 o r more years old: 75 mL/min/1.73sq m Chronic Kidney Disease: <60 mL/min/1.73sq m Kidney failure: <15 mL/min/1.73sq m eGFR calculated using average adult body mass. Additional eGFR calculator available at: http://www.[employer]/multiple_crcl_2012.htm No Panel InformationOrdered By: Kin Abarca on 06-15-2021 [employer] Phone: POC Glucose FingerstickOrder ed By: Kin Abarca on 06-15-2021 Glucose [Mass/Vol] 163 mg/dL High 65 - 105 mg/dL [employer] Phone: Interpretation and review of laboratory results Abnormal [employer] Phone: [employer] Phone: POCT GlucoseOrdered By: Kin Abarca on 06-15-2021 Glucose [Mass/Vol] 186 mg/dL High 74 - 100 mg/dL [employer] Phone: Interpretation and review of laboratory results Abnormal [employer] Phone: POTASSIUM (POC)Ordered By: Yuriy Abarca on 06-15-2021 Potassium [Moles/Vol] 4.5 mmol/L 3.5 - 4.5 mmol/L [employer] Phone: EKG 12 leadOrdered By: Antoni Burks on 05-13-2021 Atrial Rate 67 BPM [employer] Phone: P Orange 58 degrees [employer] Phone: P-R Interval 130 ms [employer] Phone: Q-T Interval 504 ms [employer] Phone: QRS Duration 144 ms [employer] Phone: QTc Calculation (Bazett) 532 ms [employer] Phone: R Orange 20 degrees [employer] Phone: T Orange 117 degrees [employer] Phone: Ventricular Rate 67 BPM 24/7 [employer] Work Phone: Sinus rhythm with Premature atrial complexes Left bundle branch block Abnormal ECG No previous ECGs available [employer] Phone: Virgilio, Mhpn Incoming E kg Results From [employer] - 05/13/2021 1:30 PM EDT Sinus rhythm with Premature atrial complexes Left bundle branch block Abnormal ECG No previous ECGs available [employer] Phone: [employer] Phone: Basic Metabolic Panel w/ Ref alexis to MGOrdered By: Latonia Burks on 05-12-2021 Anion gap [Moles/Vol] 13 mmol/L 9 - 17 mmol/L [employer] Phone: Calcium [Mass/Vol] 9.4 mg/dL 8.6 - 10. 4 mg/dL [employer] Phone: Chloride [Moles/Vol] 102 mmol/L 98 - 10 7 mmol/L [employer] Phone: CO2 [Moles/Vol] 28 mmol/L 20 - 31 mmol/L [employer] Phone: Creatinine [Mass/Vol] 0.94 mg/dL High 0.50 - 0.90 mg/dL [employer] Phone: GFR >60 >60 mL/min [employer] Phone: GFR Non- 58 mL/min Low >60 [employer] Phone: GFR/1.73 sq M.predicted MDRD (S/P/Bld) [Vol rate/Area] [employer] Phone: Comment on above: Average GFR for 70 o r more years old: 75 mL/min/1.73sq m Chronic Kidney Disease: <60 mL/min/1.73sq m Kidney failure: <15 mL/min/1.73sq m eGFR calculated using average adult body mass. Additional eGFR calculator available at: http://www.[employer]/multiple_crcl_2012.htm GFR/1.73 sq M.predicted MDRD (S/P/Bld) [Vol rate/Area] NOT REPORTED [employer] Phone: Glucose [Mass/Vol] 119 mg/dL High 70 - 99 mg/dL [employer] Phone: Interpretation and review of laboratory results Abnormal [employer] Phone: Potassium [Moles/Vol] 4.0 mmol/L 3.7 - 5.3 mmol/L [employer] Phone: Sodium [Moles/Vol] 143 mmol/L 135 - 144 mmol/L [employer] Phone: Urea nitrogen (BldV) [Mass/Vol] 18 mg/dL 8 - 23 mg/dL [employer] Work Phone: Urea nitrogen/Creatinine (Bld) [Mass ratio] NOT REPORTED [employer] Phone: [employer] Work Phone: CBC auto differentialOrdered By: Latonia Burks on 05-12-2021 [employer] # 0.26 [employer] [facility] Work Phone: Absolute Immature Granulocyte 0.04 [employer] Work Phone: Absolute Lymph # 3.26 [employer] [facility] Work Phone: [employer] Harnett # 0.84 [employer] [facility] Work Phone: Basophils (Bld) [#/Vol] 0.05 10*3/uL [employer] Work Phone: Basophils/100 WBC (Bld) 1 % 0 - 2 % [employer] Phone: Differential Type NOT REPORTED [employer] Phone: Eosinophils/100 WBC (Bld) 3 % 1 - 4 % [employer] Phone: Hematocrit (Bld) [Volume fraction] 36.9 % 36.3 - 47.1 % [employer] Phone: Hemoglobin.gastrointes tinal spec 1 Ql (Stl) 11.2 g/dL Low 11.9 - 15.1 g/dL [employer] Phone: Immature granulocytes/100 WBC (Bld) 0 % 0 [employer] Phone: Interpretation and review of laboratory results Abnormal [employer] Phone: Lymphocytes/100 WBC (Bld) 32 % 24 - 43 % [employer] Phone: MCH (RBC) [Entitic mass] 28.3 pg 25.2 - 33.5 pg [employer] Phone: MCHC (RBC) [Mass/Vol] 30.4 g/dL 28.4 - 34.8 g/dL [employer] Phone: MCV (RBC) [Entitic vol] 93.2 fL 82.6 - 102.9 fL [employer] Phone: Monocytes/100 WBC (Bld) 8 % 3 - 12 % [employer] Phone: NRBC Automated 0.0 0.0 per 100 WBC [employer] Phone: Platelet distribution width (Bld) [Ratio] 13.8 % 11.8 - 14.4 % [employer] Phone: Platelet Estimate NOT REPORTED [employer] Phone: Platelet mean volume (Bld) [Entitic vol] 9.5 fL 8.1 - 13.5 fL [employer] Phone: Platelets (Bld) [#/Vol] 310 10*3/uL [employer] Phone: RBC (Bld) [#/Vol] 3.96 10*6/uL 3.95 - 5.1 1 m/uL [employer] Phone: RBC (Bld) [#/Vol] NOT REPORTED [employer] Phone: Segmented neutrophils/100 WBC (Bld) 56 % 36 - 65 % [employer] Phone: Segs Absolute 5.70 [employer] Work Phone: WBC (Bld) [#/Vol] 10.2 10*3/uL [employer] Phone: WBC (Bld) [#/Vol] NOT REPORTED [employer] Phone: [employer] Work Phone: XR CHEST (2 VW)Ordered By: A david Kimmie on 05-12-2021 Senescent changes compatible with the age of the patient. No evidence of acute cardiopulmonary process. [employer] Phone: EXAMINATION: TWO XRA Y VIEWS OF [...] spine and visualized portions of the shoulders. [employer] Phone: Virgilio, pn Incoming Radiant Results From [employer] - 05/12/2021 2:48 PM EDT EXAMINATION: TWO [...] patient. No evidence of acute cardiopulmonary process. [employer] Phone: [employer] Phone: Cardiovascular Lab Reporton 08-21-2020 Cardiovascular Lab Report [facility] #: [id number] Department of Physician: Jose Maria Keyes M.D. Division of Service Date: 08/20/2020 Cardiology Birthdate: 1940 Adult Cardiovascular Room #: [facility] [address] [place], [place] [address] Cardiovascular Laboratory Report INDICATION: The patient is [...] signed informed consent. 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 The procedure was performed under conscious sedation. A transesophageal echocardiogram was performed by Dr. Marisol Khoury at baseline. Please refer to his dictation for details. The appendage measured a maximum of 16 mm in terms of ostial width. Using ultrasound guidance and micropuncture technique, access was obtained in the right common femoral vein and a 6-Somali x 11 cm sheath was placed preclosure where the 6-Somali ProGlide device was performed followed by advancement [...] was exchanged over that wire to the 14-Somali Watchman access sheath, which was advanced to the left atrial cavity with no issues. The 6-Somali angled pigtail catheter was advanced over the [...] Trans: (more content not included)... Normal [facility] TYPE AND CROSSMATCHon 2019 ABO INTERPRETATION A [facility] Comment on above: Performed By: #### [id number] #### [facility] [address] [place] [address], [facility] RH INTERPRETATION Positive Normal [facility] Comment on above: Performed By: #### [id number] #### [facility] [address] [place] [address], [facility] Vital Signs Date Time Vital Sign Value Performing Clinician Facility 06-20-2024 10:14040 Body height 152.4 cm Peyman Hensley DPM Work Phone: [facility] 06-20-2024 10:14040 Body mass index (BMI) [Ratio] 28.32 kg/m2 Peyman Hensley DPM Work Phone: [facility] 06-20-2024 10:14040 Body weight 65.77 kg Peyman Hensley DPM Work Phone: [facility] 06-20-2024 10:140400 Respiratory rate 18 /min Peyman Hensley DPM Work Phone: [facility] 05-01-2024 10:18-0400 Body height 149.86 cm MD Mateus Perry Work Phone: [facility] 05-01-2024 10:18-0400 Body mass index (BMI) [Ratio] 30.2 kg/m2 MD Mateus Perry Work Phone: [facility] 05-01-2024 10:18-0400 Body temperature 97.8 [degF] MD Mateus Perry Work Phone: [facility] 05-01-2024 10:18-0400 Body weight 68.03 kg MD Mateus Perry Work Phone: [facility] 05-01-2024 10:18-0400 Diastolic blood pressure 72 mm[Hg] MD Mateus Perry Work Phone: [facility] 05-01-2024 10:18-0400 Heart rate 80 /min MD Mateus Perry Work Phone: [facility] 05-01-2024 10:18-0400 Respiratory rate 16 /min MD Mateus Perry Work Phone: [facility] 05-01-2024 10:18-0400 SaO2% (BldA) [Mass fraction] 98 % MD Mateus Perry Work Phone: [facility] 05-01-2024 10:18-0400 Systolic blood pressure 118 mm[Hg] MD Mateus Perry Work Phone: [facility] 04-24-2024 11:13-0400 Body height 149.86 cm MD Mateus Perry Work Phone: [facility] 04-24-2024 11:13-0400 Body mass index (BMI) [Ratio] 36.3 kg/m2 MD Mateus Perry Work Phone: [facility] 04-24-2024 11:13-0400 Body weight 81.64 kg MD Mateus Perry Work Phone: [facility] 04-24-2024 11:06-0400 Body temperature 98.8 [degF] MD Mateus Perry Work Phone: [facility] 04-24-2024 11:06-0400 Diastolic blood pressure 75 mm[Hg] MD Mateus Perry Work Phone: [facility] 04-24-2024 11:06-0400 Heart rate 97 /min MD Mateus Perry Work Phone: [facility] 04-24-2024 11:06-0400 Respiratory rate 20 /min MD Mateus Perry Work Phone: [facility] 04-24-2024 11:06-0400 Systolic blood pressure 118 mm[Hg] MD Mateus Perry Work Phone: [facility] 04-10-2024 10:30-0400 Body height 149.86 cm MD Mateus Perry Work Phone: [facility] 04-10-2024 10:30-0400 Body mass index (BMI) [Ratio] 36.3 kg/m2 MD Mateus Perry Work Phone: [facility] 04-10-2024 10:30-0400 Body weight 81.64 kg MD Mateus Perry Work Phone: [facility] 03-26-2024 09:51-0400 Body height 149.86 cm MD Mateus Perry Work Phone: [facility] 03-26-2024 09:51-0400 Body mass index (BMI) [Ratio] 36.3 kg/m2 MD Mateus Perry Work Phone: [facility] 03-26-2024 09:51-0400 Body weight 81.64 kg MD Mateus Perry Work Phone: [facility] 03-26-2024 09:36-0400 Body temperature 97.3 [degF] MD Mateus Perry Work Phone: [facility] 03-26-2024 09:36-0400 Diastolic blood pressure 61 mm[Hg] MD Mateus Perry Work Phone: [facility] 03-26-2024 09:36-0400 Heart rate 86 /min MD Mateus Perry Work Phone: [facility] 03-26-2024 09:36-0400 Respiratory rate 18 /min MD Mateus Perry Work Phone: [facility] 03-26-2024 09:36-0400 Systolic blood pressure 128 mm[Hg] MD Mateus Perry Work Phone: [facility] 06-20-2023 15:29-0400 Body height 154.9 cm Winnie Guzmán PA-C Work Phone: [facility] 06-20-2023 15:29-0400 Body temperature 97.39 [degF] Winnie Guzmán PA-C Work Phone: [facility] 06-20-2023 15:29-0400 Body weight 84.64 kg Winnie Ramirez PA-C Work Phone: [facility] 06-20-2023 15:29-0400 Diastolic blood pressure 55 mm[Hg] Winnie Ramirez PA-C Work Phone: [facility] 06-20-2023 15:29-0400 Heart rate 72 /min Winnie Ramirez PA-C Work Phone: [facility] 06-20-2023 15:29-0400 Respiratory rate 16 /min Winnie Ramirez PA-C Work Phone: [facility] 06-20-2023 15:29-0400 SaO2% (BldA) [Mass fraction] 96 % Winnie Ramirez PA-C Work Phone: [facility] 06-20-2023 15:29-0400 Systolic blood pressure 138 mm[Hg] Winnie Ramirez PA-C Work Phone: [facility] 06-01-2023 08:45-0400 Body height 154.94 cm Christiano Gonzales Other [employer] Other 06-01-2023 08:45-0400 Body mass index (BMI) [Ratio] 34.57 kg/m2 Christiano Gonzales Other [employer] Other 06-01-2023 08:45-0400 Body temperature 97.8 [degF] Christiano Gonzales Other [employer] Other 06-01-2023 08:45-0400 Body weight 83.01 kg Christiano Gonzales Other [employer] Other 06-01-2023 08:45-0400 Diastolic blood pressure 72 mm[Hg] Christiano Gonzales Other [employer] Other 06-01-2023 08:45-0400 SaO2% (BldA) [Mass fraction] 93 % Christiano Marrerogarrick Other [employer] Other 06-01-2023 08:45-0400 Systolic blood pressure 130 mm[Hg] Christiano Marrerogarrick Other [employer] Other 03-09-2023 08:45-0400 Body height 154.94 cm Millie Storm Other [employer] Other 03-09-2023 08:45-0400 Body mass index (BMI) [Ratio] 34.57 kg/m2 Millie Faganvane Other [employer] Other 03-09-2023 08:45-0400 Body temperature 96.8 [degF] Millie Faganvane Other [employer] Other 03-09-2023 08:45-0400 Body weight 83.01 kg Millie Storm Other [employer] Other 03-09-2023 08:45-0400 Diastolic blood pressure 56 mm[Hg] Millie Faganvane Other [employer] Other 03-09-2023 08:45-0400 SaO2% (BldA) [Mass fraction] 97 % Millie Faganvane Other [employer] Other 03-09-2023 08:45-0400 Systolic blood pressure 118 mm[Hg] Millie Faganvane Other [employer] Other 02-14-2023 10:19-0400 Body height 154.9 cm Wallace Stone MD Work Phone: [facility] 02-14-2023 10:19-0400 Body temperature 97.39 [degF] Wallace Stone MD Work Phone: [facility] 02-14-2023 10:19-0400 Body weight 84.46 kg Wallace Stone MD Work Phone: [facility] 02-14-2023 10:19-0400 Diastolic blood pressure 90 mm[Hg] Wallace Stone MD Work Phone: [facility] 02-14-2023 10:19-0400 Heart rate 102 /min Wallace Stone MD Work Phone: [facility] 02-14-2023 10:19-0400 Respiratory rate 16 /min Wallace Stone MD Work Phone: [facility] 02-14-2023 10:19-0400 SaO2% (BldA) [Mass fraction] 95 % Wallace Stone MD Work Phone: [facility] 02-14-2023 10:19-0400 Systolic blood pressure 151 mm[Hg] Wallace Stone MD Work Phone: [facility] 12-07-2022 14:00-0400 Body height 154.94 cm Millie Storm Other [employer] Other 12-07-2022 14:00-0400 Body mass index (BMI) [Ratio] 35.71 kg/m2 Millie Storm Other [employer] Other 12-07-2022 14:00-0400 Body temperature 97.6 [degF] Millie Storm Other [employer] Other 12-07-2022 14:00-0400 Body weight 85.73 kg Millie Storm Other [employer] Other 12-07-2022 14:00-0400 Diastolic blood pressure 68 mm[Hg] Millie Storm Other [employer] Other 12-07-2022 14:00-0400 SaO2% (BldA) [Mass fraction] 93 % Millie Storm Other [employer] Other 12-07-2022 14:00-0400 Systolic blood pressure 116 mm[Hg] Milile Storm Other [employer] Other 11-29-2022 11:53-0400 Diastolic blood pressure 54 mm[Hg] MD Mateus Perry Work Phone: [facility] 11-29-2022 11:53-0400 Heart rate 67 /min MD Mateus Perry Work Phone: [facility] 11-29-2022 11:53-0400 Respiratory rate 16 /min MD Mateus Perry Work Phone: [facility] 11-29-2022 11:53-0400 SaO2% (BldA) [Mass fraction] 94 % MD Mateus Perry Work Phone: [facility] 11-29-2022 11:53-0400 Systolic blood pressure 141 mm[Hg] MD Mateus Perry Work Phone: [facility] 11-29-2022 09:13-0400 Body height 154.94 cm MD Mateus Perry Work Phone: [facility] 11-29-2022 09:13-0400 Body weight 81.64 kg MD Mateus Perry Work Phone: [facility] 11-23-2022 11:00-0400 Body height 154.94 cm Christiano Gonzales Other [employer] Other 11-23-2022 11:00-0400 Body temperature 97.8 [degF] Christiano Gonzales Other [employer] Other 11-23-2022 11:00-0400 Diastolic blood pressure 62 mm[Hg] Christiano Gonzales Other [employer] Other 11-23-2022 11:00-0400 SaO2% (BldA) [Mass fraction] 96 % Christiano Gonzales Other [employer] Other 11-23-2022 11:00-0400 Systolic blood pressure 110 mm[Hg] Christiano Gonzales Other [employer] Other 11-09-2022 13:44-0500 Body height 154.9 cm Wallace Stone MD Work Phone: [facility] 11-09-2022 13:44-0500 Body temperature 97.11 [degF] Wallace Stone MD Work Phone: [facility] 11-09-2022 13:44-0500 Body weight 84.73 kg Wallace Stone MD Work Phone: [facility] 11-09-2022 13:44-0500 Diastolic blood pressure 72 mm[Hg] Wallace Stone MD Work Phone: [facility] 11-09-2022 13:44-0500 Heart rate 66 /min Wallace Stone MD Work Phone: [facility] 11-09-2022 13:44-0500 Respiratory rate 18 /min Wallace Stone MD Work Phone: [facility] 11-09-2022 13:44-0500 SaO2% (BldA) [Mass fraction] 100 % Wallace Stone MD Work Phone: [facility] 11-09-2022 13:44-0500 Systolic blood pressure 142 mm[Hg] Wallace Stone MD Work Phone: [facility] 09-22-2022 11:24-0500 Body height 154.9 cm Wallace Stone MD Work Phone: [facility] 09-22-2022 11:24-0500 Body temperature 97.81 [degF] Wallace Stone MD Work Phone: [facility] 09-22-2022 11:24-0500 Body weight 84.82 kg Wallace Stone MD Work Phone: [facility] 09-22-2022 11:24-0500 Diastolic blood pressure 64 mm[Hg] Wallace Stone MD Work Phone: [facility] 09-22-2022 11:24-0500 Heart rate 70 /min Wallace Stone MD Work Phone: [facility] 09-22-2022 11:24-0500 Respiratory rate 16 /min Wallace Stone MD Work Phone: [facility] 09-22-2022 11:24-0500 SaO2% (BldA) [Mass fraction] 94 % Wallace Stone MD Work Phone: [facility] 09-22-2022 11:24-0500 Systolic blood pressure 137 mm[Hg] Wallace Stone MD Work Phone: [facility] 09-09-2022 15:06-0500 Blood Pressure Location Ilinaa GAGNON [facility] [place] 09-09-2022 15:06-0500 Diastolic blood pressure 68 mm[Hg] Iliana GAGNON [facility] [place] 09-09-2022 15:06-0500 Heart rate 68 /min Iliana GAGNON [facility] [place] 09-09-2022 15:06-0500 Respiratory rate 16 /min Iliana GAGNON [facility] [place] 09-09-2022 15:06-0500 Systolic blood pressure 130 mm[Hg] Iliana GAGNON [facility] [place] 06-28-2022 12:00-0400 SaO2% (BldA) [Mass fraction] 95 % Emma Plunkett MD Work Phone: [facility] 06-28-2022 11:50-0400 Body temperature 97.3 [degF] Emma Plunkett MD Work Phone: [facility] 06-28-2022 11:50-0400 Diastolic blood pressure 50 mm[Hg] Emma Plunkett MD Work Phone: [facility] 06-28-2022 11:50-0400 Heart rate 69 /min Emma Plunkett MD Work Phone: [facility] 06-28-2022 11:50-0400 Respiratory rate 16 /min Emma Plunkett MD Work Phone: [facility] 06-28-2022 11:50-0400 Systolic blood pressure 115 mm[Hg] Emma Plunkett MD Work Phone: [facility] 06-28-2022 07:36-0400 Body height 154.9 cm Emma Plunkett MD Work Phone: [facility] 06-28-2022 07:36-0400 Body mass index (BMI) [Ratio] 34.58 kg/m2 Emma Plunkett MD Work Phone: [facility] 06-28-2022 07:36-0400 Body weight 83.01 kg Emma Plunkett MD Work Phone: [facility] 12-13-2021 15:45-0400 Body temperature 97 [degF] Emma Plunkett MD Work Phone: [facility] 12-13-2021 15:45-0400 Diastolic blood pressure 96 mm[Hg] Emma Plunkett MD Work Phone: [facility] 12-13-2021 15:45-0400 Heart rate 65 /min Emma Plunkett MD Work Phone: [facility] 12-13-2021 15:45-0400 Respiratory rate 14 /min Emma Plunkett MD Work Phone: [facility] 12-13-2021 15:45-0400 SaO2% (BldA) [Mass fraction] 94 % Emma Plunkett MD Work Phone: [facility] 12-13-2021 15:45-0400 Systolic blood pressure 113 mm[Hg] Emma Plunkett MD Work Phone: [facility] 12-13-2021 09:46-0400 Body height 154.9 cm Emma Plunkett MD Work Phone: [facility] 12-13-2021 09:46-0400 Body mass index (BMI) [Ratio] 36.09 kg/m2 Emma Plunkett MD Work Phone: [facility] 12-13-2021 09:46-0400 Body weight 86.64 kg Emma Plunkett MD Work Phone: [facility] 12-06-2021 14:46-0400 Body height 154.9 cm Stvz 2 [facility] 12-06-2021 14:46-0400 Body mass index (BMI) [Ratio] 36.09 kg/m2 Stvz 2 [facility] 12-06-2021 14:46-0400 Body temperature 96.4 [degF] Stvz 2 [facility] 12-06-2021 14:46-0400 Body weight 86.64 kg Stvz 2 [facility] 12-06-2021 14:46-0400 Diastolic blood pressure 67 mm[Hg] Stvz 2 [facility] 12-06-2021 14:46-0400 Heart rate 62 /min Stvz 2 [facility] 12-06-2021 14:46-0400 Respiratory rate 20 /min Stvz 2 [facility] 12-06-2021 14:46-0400 SaO2% (BldA) [Mass fraction] 97 % Stvz 2 [facility] 12-06-2021 14:46-0400 Systolic blood pressure 153 mm[Hg] Stvz 2 [facility] 06-15-2021 10:14-0400 Body temperature 97.81 [degF] Kin Abarca MD Work Phone: [employer] Work Phone: 06-15-2021 10:14-0400 Diastolic blood pressure 58 mm[Hg] Kin Abarca MD Work Phone: [employer] Work Phone: 06-15-2021 10:14-0400 Heart rate 61 /min Kin Abarca MD Work Phone: [employer] Work Phone: 06-15-2021 10:14-0400 Respiratory rate 14 /min Kin Abarca MD Work Phone: [employer] Work Phone: 06-15-2021 10:14-0400 SaO2% (BldA) [Mass fraction] 96 % Kin Abarca MD Work Phone: [employer] Work Phone: 06-15-2021 10:14-0400 Systolic blood pressure 113 mm[Hg] Kin Abarca MD Work Phone: [employer] Work Phone: 06-15-2021 08:24-0400 Body height 154.9 cm Kin Abarca MD Work Phone: [employer] Work Phone: 06-15-2021 08:24-0400 Body mass index (BMI) [Ratio] 34.96 kg/m2 Kin Abarca MD Work Phone: [employer] Phone: 06-15-2021 08:24-0400 Body weight 83.92 kg Kin Abarca MD Work Phone: [employer] Phone: 05-12-2021 12:53-0400 Body height 154.9 cm Stvz 1 [employer] Phone: 05-12-2021 12:53-0400 Body mass index (BMI) [Ratio] 35.52 kg/m2 Stvz 1 [employer] Phone: 05-12-2021 12:53-0400 Body temperature 96.8 [degF] Stvz 1 [employer] Phone: 05-12-2021 12:53-0400 Body weight 85.28 kg Stvz 1 [employer] Phone: 05-12-2021 12:53-0400 Diastolic blood pressure 66 mm[Hg] Stvz 1 [employer] Phone: 05-12-2021 12:53-0400 Heart rate 57 /min Stvz 1 [employer] Phone: 05-12-2021 12:53-0400 Respiratory rate 18 /min Stvz 1 [employer] Phone: 05-12-2021 12:53-0400 SaO2% (BldA) [Mass fraction] 96 % Stvz 1 [employer] Phone: 05-12-2021 12:53-0400 Systolic blood pressure 150 mm[Hg] Stvz 1 [employer] Phone: Encounters Encounter Date Encounter Type Care [...] underlying condition with diabetic polyneuropathy, 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 longterm insulin use ([facility]); Pain due to onychomycosis of toenails of both feet Start: 06-12-2024 End: 06-12-2024 ambulatory [facility] Start: 05-27-2024 End: 05-27-2024 ambulatory CHERYL [facility] Start: 05-01-2024 End: 05-01-2024 ambulatory MD Mateus Perry Work Phone: [facility] Work Phone: Start: 05-01-2024 End: 05-01-2024 Patient encounter procedure MD Mateus Perry Work Phone: [facility] Work Phone: Start: 04-24-2024 End: 04-24-2024 ambulatory MD Mateus Perry Work Phone: [facility] Work Phone: Start: 04-24-2024 End: 04-24-2024 Discharged Recurring MD Mateus Perry Work Phone: [facility] Work Phone: Start: 04-09-2024 End: 04-09-2024 Patient encounter procedure MD Mateus Perry Work Phone: [facility] [place] Work Phone: Start: 04-09-2024 End: 04-09-2024 ambulatory MD Mateus Perry Work Phone: [facility] Work Phone: Start: 03-26-2024 Registered Recurring MD Yvonne Perry Work Phone: [facility] Work Phone: Start: 06-20-2023 End: 06-20-2023 ambulatory WINNIE Hoa RAMIREZ Facility:[facility] Start: 06-20-2023 End: 06-20-2023 ambulatory Winnie Camara Ramirez PA-C Work Phone: Hematology/Oncology Comment on above: 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, estrogen receptor positive (HCC) (Primary Dx); Stage 3a chronic kidney disease (HCC) Start: 06-20-2023 End: 06-20-2023 Patient encounter procedure Winnie Hoa Ramirez PA-C Work Phone: TR[facility] Start: 06-01-2023 End: 06-01-2023 ambulatory Christiano Gonzales Other [employer] Other Start: 06-01-2023 Office outpatient vi sit 15 minutes Christiano Gonzales [facility] Start: 04-06-2023 End: 04-07-2023 ambulatory MATEUS HECTORHui [facility] Start: 03-09-2023 End: 03-09-2023 ambulatory Millie Storm Other [employer] Other Start: 03-09-2023 Patient encounter procedure Millie Storm [facility] Start: 03-06-2023 End: 03-06-2023 ambulatory EMMA GARZA V [facility] Start: 02-14-2023 End: 02-14-2023 ambulatory WALLACE STONE Facility:[facility] Start: 02-14-2023 End: 02-14-2023 ambulatory Wallace [...] 12-08-2022 End: 12-08-2022 ambulatory Millie Storm Other [employer] Other Start: 12-08-2022 Telephone encounter Millie Dc [facility] Start: 12-07-2022 End: 12-07-2022 ambulatory Millie Emeterio Other [employer] Other Start: 12-07-2022 Patient encounter procedure Millie Storm [facility] Vascular Surgery Start: 11-29-2022 End: 11-29-2022 Admission to same day surgery center MD Mateus Perry Work Phone: [facility]-Interventional Radiology Work Phone: Start: 11-29-2022 End: 11-29-2022 ambulatory MD Mateus Perry Work Phone: [facility] Work Phone: Start: 11-24-2022 End: 11-25-2022 ambulatory LATONIA DENITAZAKIYA [facility] Start: 11-24-2022 End: 11-24-2022 Subsequent hospital visit by physician Mateus Perry MD Work Phone: [facility] Start: 11-23-2022 End: 11-23-2022 ambulatory Christiano Gonzales Other [employer] Other Start: 11-23-2022 Office outpatient ne w 60 minutes Christiano Gonzales [facility] Vascular Surgery Start: 11-22-2022 End: 11-23-2022 ambulatory Iliana GAGNON Facility: [place] Start: 11-16-2022 End: 11-16-[address] MATEUS PERRY . 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, estrogen receptor positive (HCC) (Primary Dx); Claudication in peripheral vascular disease (HCC) Start: 11-09-2022 End: 11-09-2022 Patient encounter procedure Wallace Stone MD Work Phone: [facility] Start: 11-09-2022 Telephone encounter Wallace [facility]olina MD [facility] Comment on above: Referral Information (Vascular Consult) Start: 11-08-2022 End: 11-09-2022 ambulatory Iliana GAGNON Facility: [place] Start: 11-08-2022 End: 11-08-2022 Patient encounter procedure Iliana GAGNON General Surgery Nill/[facility] [place] Start: 11-04-2022 End: 11-05-2022 ambulatory Iliana GAGNON Facility: [facility] Start: 11-04-2022 End: 11-04-2022 Patient encounter procedure Iliana GAGNON General Surgery [facility] [place] Start: 11-02-2022 End: 11-03-[address] MATEUS PERRY . Facility:[facility] Start: 10-25-2022 End: 10-26-2022 ambulatory Iliana GAGNON Facility: [facility] Start: 10-25-2022 End: 10-25-2022 Patient encounter procedure Iliana GAGNON General Surgery [facility] [place] Start: 10-19-2022 End: 02-09-[address] ILIANA GAGNON . Facility:[facility] Start: 10-15-[address] ILIANA GAGNON . Facil ity:[facility] Start: 10-12-2022 Encounter for preprocedural laboratory examination DR ILIANA GAGNON . [facility] Start: 10-11-2022 End: 10-12-[address] ILIANA GAGNON . Facility:[facility] Start: 10-11-2022 End: 10-12-2022 Encounter for preprocedural laboratory examination DR ILIANA GAGNON . Facility:[facility] Start: 09-30-2022 End: 10-01-[address] MATEUS PERRY . Facility:[facility] Start: 09-22-2022 Telephone encounter Lars Wilkerson RN Work Phone: Hematology/Oncology Comment on above: Care Coordination (S urgery update) Start: 09-22-2022 End: 09-22-2022 ambulatory WALLACE STONE Facility:[facility] Start: 09-22-2022 End: 09-22-2022 ambulatory Wallace Stone MD Work Phone: Hematology/Oncology Comment on above: 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, estrogen receptor positive (HCC) (Primary Dx) Start: 09-22-2022 End: 09-22-2022 Patient encounter procedure Wallace Stone MD Work Phone: [facility] Comment on above: Malignant neoplasm o f upper-outer quadrant of right breast in female, estrogen receptor positive (HCC) (Primary Dx) Start: 09-21-2022 End: 09-21-[address] MATEUS PERRY . Facility: Start: 09-19-2022 Chart abstracting Wallace messer MD Work Phone: Hematology/Oncology Start: 09-16-2022 End: 09-17-[address] DOCTOR SPEAR Facility: Start: 09-09-2022 End: 09-10-2022 ambulatory Iliana GAGNON Facility:[facility] Start: 09-09-2022 End: 09-09-2022 Patient encounter procedure Il[facility]AGNON [facility] Start: 09-05-[address] MATEUS PERRY . [...] HANK Facility:[facility] Start: 02-09-2022 End: 02-10-2022 ambulatory [facility] Facility:[facility] Start: 12-13-2021 End: 12-13-2021 Subsequent hospital visit by physician Emma Garza MD Work Phone: [facility] Comment on above: Post-operative state (Primary Dx) Start: 12-06-2021 End: 12-08-2021 Subsequent hospital visit by physician [facility] Comment on above: Arrived Start: [...] hospital visit by physician [facility] Comment on above: Arrived Start: [...] exam ches t 2 views Latonia Kimmie PA-[facility] Work Phone: Start: 05-12-2021 Ecg routine ecg w/le ast 12 lds i&r only Latonia Kimmie PA-[facility] Work Phone: Start: 08-20-2020 Antibody screen Comment on above: Performed By: #### [id number] #### [address] Start: 01-16-2017 History of placement of [...] procedure 08/29/2024 10:00 AM EST Office Visit [facility] [address] [facility] [address] [place] [address] Peyman Hensley, DPHoa [address] [facility] [address] [place] [address] [facility] Start: 06-20-2024 Hemoglobin/Hematocrit Hemoglobin/Hem [facility] Start: 06-20-2024 Serum Creatinine Serum Creatinine [facility] Start: 05-12-2024 Influenza vaccination Influenza Vacc ine (#1) [facility] Start: 02-15-2024 HEMOGLOBIN/HEMATOCRIT HEMOGLOBIN/HEM [facility] Start: 02-15-2024 SERUM CREATININE SERUM CREATININE [facility] Start: 06-16-2023 End: 08-16-2023 CBC W Auto Differential panel - Blood CBC + DIFF Lab Routine 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, estrogen receptor positive (HCC) Expected: 06/16/2023 (Approximate), Expires: 08/16/2023 [facility] Work Phone: Comment on above: Expected: 06/16/2023 (Approximate), Expires: 08/16/2023 Start: 06-16-2023 End: 08-16-2023 Comprehensive metabolic 2000 panel - Serum or Plasma COMP METABOLIC PANEL Lab Routine 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, estrogen receptor positive (HCC) Expected: 06/16/2023 (Approximate), Expires: 08/16/2023 [facility] Work Phone: Comment on above: Expected: 06/16/2023 (Approximate), Expires: 08/16/2023 Start: 05-12-2023 Covid-19 Vaccine ( season) Covid-19 Vaccine () [facility] Start: 05-12-2023 Influenza vaccination [facility] Start: 04-12-2023 End: 04-12-2023 Patient encounter procedure 04/12/2023 Office Visit Gynecologic Oncology Latonia Brush PA-C [address] [place], [place] [id number] [facility] Start: 02-09-2023 End: 04-11-2023 CBC W Auto Differential panel - Blood CBC + DIFF Lab Routine 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, estrogen receptor positive (HCC) Expected: 02/09/2023 (Approximate), Expires: 04/11/2023 [facility] Work Phone: Comment on above: Expected: 02/09/2023 (Approximate), Expires: 04/11/2023 Start: 02-09-2023 End: 04-11-2023 Comprehensive metabolic 2000 panel - Serum or Plasma COMP METABOLIC PANEL Lab Routine 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, estrogen receptor positive (HCC) Expected: 02/09/2023 (Approximate), Expires: 04/11/2023 [facility] Work Phone: Comment on above: Expected: 02/09/2023 (Approximate), Expires: 04/11/2023 Start: 12-13-2022 Potassium monitoring Potassium monit [facility] Start: 12-06-2022 Creatinine measurement Creatinine mo [facility] Start: 12-06-2022 Potassium monitoring Potassium monit [facility] Start: 11-29-2022 End: 11-29-2022 [facility] Start: 09-11-2022 ADVANCE DIRECTIVE DISCUSSION ADVANCE DIRECTIVE DISCUSSION [facility] Start: 09-11-2022 DEPRESSION ASSESSMENT DEPRESSION ASS ESSMENT [facility] Start: 07-27-2022 End: 07-27-2022 Patient encounter procedure 07/27/2022 Office Visit Gynecologic Oncology Emma Garza MD [address] [place] [address] [facility] Start: 06-28-2022 End: 06-28-2022 VULVA VAGINAL CERVIX LESION EXCISION LASER VULVA VAGINAL CERVIX LESION EXCISION LASER Vaginal dysplasia 06/28/2022 9:04 AM EDT [facility] Start: 06-15-2022 Creatinine measurement Creatinine mo [facility] Work Phone: Start: 06-15-2022 Potassium monitoring Potassium monit [facility] Work Phone: Start: 05-12-2022 Creatinine measurement Creatinine mo [facility] [employer] Phone: Start: 05-12-2022 Influenza vaccination INFLUENZA (#1) [facility] Start: 05-12-2022 Potassium monitoring Potassium monit [facility] Work Phone: Start: 04-11-2022 Influenza vaccination Flu vaccine (# 1) [facility] Start: 01-14-2022 End: 01-14-2022 Patient encounter procedure 01/14/2022 Office Visit Gynecologic Oncology Latonia Burks PA-C [address] [address] [address] [place] [address] [facility] Start: 12-13-2021 End: 12-13-2021 VAGINECTOMY [facility] Start: 12-13-2021 End: 12-13-2021 Admission to same day surgery center [facility] Comment on above: VAGINECTOMY, CYSTOSC OPY CYSTOSCOPY, VAGINECT PATY Start: 12-13-2021 Subsequent hospital visit by physician 12/13/2021 Hospital Encounter IP Unit Emma Garza MD [address] [place] [address] [facility] OR Start: 12-13-2021 End: 12-13-2021 Vaginectomy complete removal vaginal wall VAGINECTOMY VAGINAL DYSPLASIA, RULE OUT CANCER 12/13/2021 10:20 AM EDT [facility] Start: 10-31-2021 Annual Wellness Visi t (AWV) Annual Wellness Visit (AWV) [facility] Start: 10-15-2021 COVID-19 VACCINE (4 - Booster for Moderna series) COVID-19 VACCINE (4 - Booster for Moderna series) [facility] Start: 07-01-2021 End: 07-01-2021 Patient encounter procedure 07/01/2021 Office Visit Gynecologic Oncology Kin Abarca MD [address] [facility] [facility] [address] [place] [address] [phone] [facility] Start: 05-12-2021 Influenza vaccination Flu vaccine (# 1) [facility] Work Phone: Start: 04-05-2021 COVID-19 Vaccine (3 - Booster for Moderna series) COVID-19 Vaccine (3 - Booster for Moderna series) [facility] Start: 10-29-2020 Hemoglobin A1c/Hemoglobin.total in Blood HBA1C [facility] Start: 01-19-2018 Pneumococcal Vaccine : 65+ (2 - PCV) Pneumococcal Vaccine: 65+ (2 - PCV) [facility] Start: 01-19-2018 Pneumococcal Vaccine : 65+ Years (2 of 2 - PCV) Pneumococcal Vaccine: 65+ Years (2 of 2 - PCV) [facility] Start: 01-19-2018 PNEUMOCOCCAL: 65+ (2 - PCV) PNEUMOCOCCAL: 65+ (2 - PCV) [facility] Start: 2007 BONE DENSITY BONE DENSITY [facility] Start: 2007 Bone Density Screening Bone Density Screening [facility] Start: 2007 Pneumococcal 65+ yea rs Vaccine (1 - PCV) Pneumococcal 65+ years Vaccine (1 - PCV) [facility] Start: 2007 Pneumococcal 65+ yea rs Vaccine (1 of 1 - PPSV23) Pneumococcal 65+ years Vaccine (1 of 1 - PPSV23) [facility] Start: 2002 Hepatitis B Vaccine (1 of 3 - Risk 3-dose series) Hepatitis B Vaccine (1 of 3 - Risk 3-dose series) [facility] Start: 1997 Screening for osteoporosis DEXA (modify frequency per FRAX score) [facility] Start: 1992 Shingles Vaccine (1 of 2) Shingles Vaccine (1 of 2) [facility] Start: 1992 SHINGRIX VACCINE (1 of 2) SHINGRIX VACCINE (1 of 2) [facility] Start: 1961 DTaP/Tdap/Td vaccine (1 - Tdap) DTaP/Tdap/Td vaccine (1 - Tdap) [facility] Start: 1961 Urine microalbumin profile 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 Start: 1960 BP CONTROLLED (<130/80) BP CON TROLLED (<130/80) [facility] Start: 1960 Hepatitis B surface antibody level LDL CHOLESTEROL [facility] Start: 1960 Hepatitis C screening [facility] Start: 1954 Depression Screen Depression Screen [facility] Start: 1952 3 comp foot exam completed DIABETIC FOOT EXAM [facility] Start: 1952 Hepatitis B screening URINE ALBUMIN:CREATININE RATIO [facility] Start: 1952 Hepatitis C antibody , confirmatory test DILATED RETINAL EXAM [facility] Start: 1952 Lipid panel [facility] Start: 1942 Hepatitis C screening Hepatitis C [facility] EKG 12 Lead EKG 12 Lead ECG STAT 06/28/2022 7:29 AM EDT [employer] Phone: End: 12-13-2021 INITIATE PACU OXYGEN THERAPY PROTOCOL Initiate PACU Oxygen Therapy Protocol Respiratory Care Routine Continuous until discontinued starting 12/13/2021 [employer] Phone: Comment on above: Continuous until dis continued starting 12/13/2021 End: 06-28-2022 INITIATE PACU OXYGEN THERAPY PROTOCOL Initiate PACU Oxygen Therapy Protocol Respiratory Care Routine Continuous until discontinued starting 06/28/2022 [employer] Phone: Comment on above: Continuous until dis continued starting 06/28/2022 End: 07-19-2024 MAGNO DIAGNOSTIC BILATERAL [facility] Radiology Routine 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, estrogen receptor positive (HCC) 1 Occurrences starting 06/20/2023 until 07/19/2024 [facility] Work Phone: Comment on above: 1 Occurrences starti ng 06/20/2023 until 07/19/2024 Patient referral [facility] Work Phone: Spirometry panel Incentive viktoriya metry Respiratory Care Routine Every 2hr while awake until discontinued starting 12/13/2021 [employer] Phone: Comment on above: Every 2hr while awak e until discontinued starting 12/13/2021 Surgical Pathology Surgical Path ology Lab Routine Release Upon Ordering for 1 Occurrences starting 06/15/2021 [employer] Phone: Comment on above: Release Upon Orderin g for 1 Occurrences starting 06/15/2021 Surgical Pathology Surgical Path ology Lab Routine Release Upon Ordering for 1 Occurrences starting 12/13/2021 [employer] Phone: Comment on above: Release Upon Orderin g for 1 Occurrences starting 12/13/2021 Surgical Pathology Surgical Path ology Lab Routine Vaginal dysplasia Release Upon Ordering for 1 Occurrences starting 06/28/2022 [employer] Phone: Comment on above: Release Upon Orderin g for 1 Occurrences starting 06/28/2022 End: 06-28-2022 SURGICAL PATHOLOGY REPORT SURGICAL PATHOLOGY REPORT Lab Routine Once for 1 Occurrences starting 06/28/2022 until 06/28/2022 [employer] Phone: Comment on above: Once for 1 Occurrenc es starting 06/28/2022 until 06/28/2022 End: 11-24-2022 SURGICAL PATHOLOGY REPORT SURGICAL PATHOLOGY REPORT Lab Routine Once for 1 Occurrences starting 11/24/2022 until 11/24/2022 [employer] Phone: Comment on above: Once for 1 Occurrenc es starting 11/24/2022 until 11/24/2022 [facility] Immunizations Immunization Date Immunization Notes Care Provider Fa [facility] 07-12-2022 influenza virus vacc ine, unspecified formulation Iliana CHELSI [facility] 08-20-2021 SARS-CoV-2 (COVID-19 ) mRNA-[id number] vaccine Iliana DORANNikolai [facility] 07-01-2021 influenza (HD-IIV4) vaccine, age 65+ yr, high dose, quadrivalent, PF (FLUZONE HIGH-DOSE) Wallace Stone MD Work Phone: [facility] 07-01-2021 influenza virus vacc ine, unspecified formulation Winnie Guzmán PA-C Work Phone: [facility] 11-06-2020 COVID-19, Moderna, P F, 100mcg/0.5mL Stv Xr [facility] 10-09-2020 COVID-19, Moderna, P F, 100mcg/0.5mL Stv Xr [facility] Work Phone: 06-10-2020 Seasonal trivalent influenza vaccine, adjuvanted, preservative free Wallace Stone MD Work Phone: [facility] 06-07-2017 influenza, high dose seasonal, preservative-free Wallace Stone MD Work Phone: [facility] 01-19-2017 pneumococcal polysaccharide vaccine, 23 valyvonne Stone MD Work Phone: [facility] 06-29-2015 influenza, high dose seasonal, preservative-free Wallace Stone MD Work Phone: [facility] 06-23-2014 influenza, high dose seasonal, preservative-free Wallace Stone MD Work Phone: [facility] 06-15-2010 pneumococcal polysaccharide vaccine, 23 valyvonne Stone MD Work Phone: [facility] 06-27-2007 influenza virus vacc ine, whole virus Wallace Stone MD Work Phone: [facility] Payers Date Payer Category Payer Self-pay [id number] 2007 Medicare [id number] 2007 Unknown [id number] 5 2007 Unknown [id number] 5 1959 Medicare [id number] 5 1959 Self-pay [id number] 1959 Unknown [id number] 2.16.8 [id number] 1942 Unknown [id number] 2.16.84 0.1.608463.3.579.2.593 1942 Unknown [id number] 2.16.84 0.1.883754.3.579.2.593 1942 Unknown [id number] 2.16.84 0.1.883501.3.579.2.593 1942 Unknown [id number] 2.16.84 0.1.095639.3.579.2.593 1942 Unknown [id number] 2.16.84 0.1.854798.3.579.2.593 1942 Unknown [id number] 2.16.84 0.1.643406.3.579.2.593 1942 Unknown [id number] 2.16.84 0.1.463153.3.579.2.593 1942 Unknown [id number] 2.16.84 0.1.064253.3.579.2.593 1942 Unknown [id number] 2.16.84 0.1.201457.3.579.2.593 1942 Unknown [id number] 2.16.84 0.1.219173.3.579.2.593 1942 Unknown [id number] 2.16.84 0.1.188613.3.579.2.593 1942 Unknown [id number] 2.16.84 0.1.317770.3.579.2.593 1942 Unknown [id number] 2.16.84 0.1.203641.3.579.2.593 1942 Unknown [id number] 2.16.84 0.1.340174.3.579.2.593 1942 Unknown [id number] 2.16.84 0.1.533735.3.579.2.593 1942 Unknown [id number] 2.16.84 0.1.486437.3.579.2.593 1940 Unknown [id number] 2.16.84 0.1.003649.3.579.2.593 1940 Unknown [id number] 2.16.84 0.1.689191.3.579.2.593 1942 Unknown [id number] 2.16.84 0.1.086227.3.579.2.593 1942 Unknown [id number] 2.16.84 0.1.111098.3.579.2.593 1942 Unknown [id number] 2.16.84 0.1.926543.3.579.2.593 1942 Unknown [id number] 2.16.84 0.1.538552.3.579.2.593 1942 Unknown [id number] 2.16.84 0.1.543357.3.579.2.593 1942 Unknown [id number] 2.16.84 0.1.584539.3.579.2.593 1942 Unknown [id number] 2.16.84 0.1.124068.3.579.2.593 1942 Unknown [id number] 2.16.84 0.1.166939.3.579.2.593 1942 Unknown [id number] 2.16.84 0.1.861837.3.579.2.593 1942 Unknown [id number] 2.16.8 40.1.834990.3.579.2.727 1942 Unknown [id number] 2.16.8 40.1.184934.3.579.2.727 1942 Unknown [id number] 2.16.8 40.1.262212.3.579.2.727 1942 Unknown [id number] 2.16.8 40.1.432335.3.579.2.727 1942 Unknown [id number] 2.16.8 40.1.076244.3.579.2.727 1942 Unknown [id number] 2.16.8 40.1.101734.3.579.2.727 1942 Unknown [id number] 2.16.8 40.1.724920.3.579.2.727 1942 Unknown [id number] 2.16. 840.1.155703.3.579.2.175 1942 Unknown [id number] 2.16. 840.1.244869.3.579.2.175 1942 Unknown [id number] 2.16. 840.1.443134.3.579.2.175 1940 Unknown [id number] 2.16.84 0.1.258377.3.579.2.1259 Medicare Medicare Outpatient [id number] Unknown [id number] 2.16.8 40.1.013369.3.579.2.531 Unknown [id number] 2.16.8 40.1.345800.3.579.2.531 Social History Date Type Detail Facility Start: 05-12-2021 End: 06-20-2024 Tobacco smoking status NHIS Former smoker [employer] Phone: Start: 09-11-1962 End: 06-28-2018 History of tobacco use Current smoker [facility] Start: 09-11-1962 End: 06-28-2018 History of tobacco use Cigarette Smoker [facility] Start: 05-12-2021 End: 06-20-2024 Tobacco use and exposure Never used [facility] Start: 05-12-2021 End: 11-24-2022 Alcohol intake Ex-drinker (finding) [employer] Phone: Start: 1940 Sex Assigned At Not on file M [employer] Phone: Start: 11-26-2021 End: 06-24-2022 Exposure to SARS-CoV-2 (event) Not sure [facility] Start: 06-15-2021 End: 06-20-2024 Cigarettes smoked current (pack per day) - Reported [facility] History of tobacco use Passive smoker [facility] [employer] Phone: Tobacco smoking status Never [facility] Start: 02-14-2023 End: 06-20-2024 Sex Assigned At Female [facility] Start: 09-19-2022 End: 02-14-2023 Alcohol intake Current non-drinker of alcohol (finding) [facility] Start: 1940 Sex Assigned At Female F [facility] Tobacco smoking stat [facility] Tobacco smoking consumption unknown [facility] Start: 06-20-2024 Alcoholic beverage intake Lifetime non-drinker (finding) [facility] Healthcare Medical Equipment Procedure Code Equipment [...] Facility 09-09-2022 Functional Status N/A [facility] Clinical Notes 05-12-2021 to 06-20-2024 Peyman Hensley, [...] 2 months after hitting object. Currently sees [facility] wound center every 3 weeks [...] Partner Violence: Unknown (11/02/2023) Received from [facility], [facility] [place] Safety & Environment Fear of Current [...] and negative PT pedal pulses NEURO: 5.07 [place] Sybil monofilament test intact to digits and forefoot bilaterally 125Hz tuning fork diminished to 1st MPJ bilaterally ORTHO: Positive pain on palpation to nails 1 through 10 Positive pain palpation left anterior braun ASSESSMENT 1. Venous insufficiency 2. Hav (hallux abducto valgus), left 3. Acquired deformity of left toe 4. 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 ([facility]) 5. 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 Pain due to onychomycosis of [...] DSD applied . Patient currently has the [facility] wound center applying [employer] every other day. Did discuss possibility if no improvement to contact Podiatry for advanced wound care treatments or if any signs of infection Peyman Hensley DPM documented in this encounter [facility] 06-12-2024 Note [place] [facility] Subjective Harman Mcleod is a 83 y.o. year old female patient being seen for follow up echo performed on 06/04/2024. Denies chest pain, SOB, and palpitations. Feels good but is tired today. BP at home was 107/71 today and yesterday 114/55. Patient Active Problem List Diagnosis Angina pectoris (CMS/HCC) Atherosclerosis of [place] coronary artery of [place] heart without angina pectoris Dyslipidemia Dyspnea Gastroesophageal [...] alert and orie (more content not included)... [facility] 05-27-2024 Note Remains on ASA No c/o angina or concerns [facility] 05-27-2024 Note As above [facility] 05-27-2024 Note [id number]= 6-7 at least with Age, Sex, CHF, CAD/Vascular disease, HTN, DM Currently per assessment she appears to be in rhythm heart rate well-controlled with metoprolol 200 mg daily and she remains on Eliquis anticoagulation without any bleeding tendencies or concerns. [facility] 05-27-2024 Note Lipid abnormalities are elevated therefore will increase zocor to 40 mg daily. Will repeat lipid level and liver function in 2-3 months [facility] 05-27-2024 Note Congestive heart ivanemily todd is stable without worsening symptoms RIHC II -currently patient is euvolemic without exacerbation. She has returned home from longterm facility and presents today with granddaughter who [...] helps prevent rehospitalization for heart failure exacerbation [facility] 05-27-2024 Note Hypertension current ly is well-controlled at 106/67 Continue amlodipine, hydralazine, Imdur, Toprol and spironolactone Currently renal function normal, no acute concerns. [facility] 05-27-2024 Note Coronary artery dise ase is [...] exercise as tolerated and continue all medications. [facility] 05-27-2024 Note [facility] CARDIOLOGY PROGR ESS NOTE [...] fluid overload-of which she was discharged to longterm facility until this past December. She has [...] systems reviewed and are negative Admit to [facility] 02/13/24 DC Summary DS: Summary Hospital Course [...] 81 mg by mouth. fish oil concentrate ([place]-3) 120-180 mg capsule Take 1,000 mg by [...] 112 mcg tabl (more content not included)... [facility] 05-27-2024 Note Pt is here for a one year follow up. Pt denies chest pain, palpatations, sob. Review of Systems All other systems reviewed and are negative. [facility] 04-10-2024 Progress note Note Date/Time April 10, 2024 10:30am [facility] [address] [place] [address] Wound Center Provider Note Signed Patient: Harman Mcleod MR#: [id number] : 1940 Acct:[id number] Age/Sex: 83 / F Copies to: MD Janell Oliver APRN~ HPI Date of Visit Date of Visit: Date of Service: 04/10/2024 Time of Service: 10:26 Narrative HPI: 12/11/23 Harman is an 83 year old presenting to [facility] hospital wound care for an initial visit [...] the entire visit, [facility], the left leg will be [...] wrapped again today for good measure and [facility] can remove next week and start stockings or wraps if something is open on the legs, family and friend present for the visit, does not need to return to the office unless new ulcers do develop, spoke about her getting established with a portfolio consultant and so hopefully she will follow through [...] to go to the ED per the [facility] nurse but she had refused this [...] bilateral lower leg ulcers Mode of Arrival/ Senior Software Quality Engineer: Friend Assistive Device Used Today: Walker Lives with:: Significant Other Appetite Description: Within Normal Limits Who helps w/ dressing change?: Home Health Why Do You Need Help?: Can't Reach Ulcer, Limited mobility, Unsafe leave home byself and Taxing effort to leave home Smoking Status: Former smoker [facility] Medical History (Updated 04/10/24 @ 10:30 by Janell Mathews APRN) Leg ulcer, left Cataract Problem List clean-up per request of Phys. 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 [facility] Vaginal lesion Problem List clean-up per [...] List clean-up per request of Phys. EHR [facility] Surgical History History of bladder suspension procedure Problem List clean-up per request of Phys. EHR [facility] H/O: hysterectomy Problem List clean-up per request of Phys. EHR [facility] History of appendectomy Problem List clean-up per request of Phys. EHR [facility] History of heart artery stent Problem List clean-up per request of Phys. EHR [facility] Family History (Updated 06/01/23 @ 08:45 [...] DAILY 04/25/19 [History Confirmed 12/11/23] omega-3s 300 ub-kfd-nxs-other avpqt1y-ouvd oil 1,000 mg capsule ([place]-3 Fish Oil) 2 cap PO BID 04/25/19 [...] Stasis Ulcer Thickness: Skin Breakdown Bed Appearance: [place] Percent of Wound Bed Granulated/Red: 100 Percent [...] <Electronically signed by FERNY Mathews> 04/10/24 10[address] [facility] Work Phone: 1(867) 642-514707-16-2024 Progress note Author Janell Mathews [facility] March 26, 2024 9:51am Note Date/Time March 26, 2024 9:51 am [facility] [address] [place] [address] Wound Center Provider Note Signed Patient: Harman Mcleod MR#: [id number] : 1940 Acct:[id number] Age/Sex: 83 / F Copies to: MD Janell Oliver APRN~ HPI Date of Visit Date of Visit: Date of Service: 03/26/2024 Time of Service: 09:47 Narrative HPI: 12/11/23 Harman is an 83 year old presenting to psychiatric hospital wound care for an initial visit [...] present for the entire visit, she has [facility], the left leg will be treated [...] wrapped again today for good measure and [facility] can remove next week and start stockings or wraps if something is open on the legs, family and friend present for the visit, does not need to return to the office unless new ulcers do develop, spoke about her getting established with a portfolio consultant and so hopefully she will follow through [...] to go to the ED per the [facility] nurse but she had refused this [...] bilateral lower leg ulcers Mode of Arrival/ Senior Software Quality Engineer: Friend Assistive Device Used Today: Walker Lives with:: Significant Other Appetite Description: Within Normal Limits Who helps w/ dressing change?: Home Health Why Do You Need Help?: Can't Reach Ulcer, Limited mobility, Unsafe leave home byself and Taxing effort to leave home Smoking Status: Former smoker [facility] Medical History (Updated 02/13/24 @ 10:54 by [...] List clean-up per request of Phys. [facility] Surgical History History of bladder suspension procedure Problem List clean-up per request of Phys. EHR Cmte H/O: hysterectomy Problem List clean-up per request of Phys. EHR Cmte History of appendectomy Problem List clean-up per request of Phys. EHR Cmte History of heart artery stent Problem List clean-up per request of Phys. [facility] Family History (Updated 06/01/23 @ 08:45 [...] DAILY 04/25/19 [History Confirmed 12/11/23] omega-3s 300 zh-gfr-nte-other synbh7j-xvvr oil 1,000 mg capsule ([place]-3 Fish Oil) 2 cap PO BID 04/25/19 [...] Breakdown Bed Appearance: Epithelial Tissue or Bridge, [place] and Yellow Percent of Wound Bed Granulated/Red: [...] <Electronically signed by FERNY Mathews> 03/26/24 0951 [facility] Work Phone: 1(123) 209-165606-04-2024 Progress note Author Janell Mathews [facility] February 13, 2024 10:55am Note Date/Time February 13, 2024 10:55 am [facility] [address] [place] [address] Wound Center Provider Note Signed Patient: Harman Mcleod MR#: [id number] : 1940 Acct:[id number] Age/Sex: 83 / F Copies to: MD Janell Oliver APRN~ HPI Date of Visit Date of Visit: Date of Service: 02/13/2024 Time of Service: 10:47 Narrative HPI: 12/11/23 Harman is an 83 year old presenting to psychiatric hospital wound care for an initial visit [...] the entire visit, [facility], the left leg will be [...] spoke about her getting established with a portfolio consultant and so hopefully she will follow through [...] to go to the ED per the [facility] nurse but she had refused this and wanted to come to this appt instead Subjective Pain Left Leg: Pain Description: Intermittent Pain Intensity: 0 Wound/Ulcer History When did wound start?: August 2023 bilateral lower leg ulcers Mode of Arrival/ Senior Software Quality Engineer: Friend Assistive Device Used Today: Walker Lives with:: Significant Other Appetite Description: Within Normal Limits Who helps w/ dressing change?: Home Health Why Do You Need Help?: Can't Reach Ulcer, Limited mobility, Unsafe leave home byself and Taxing effort to leave home Smoking Status: Former smoker [facility] Medical History (Updated 02/13/24 @ 10:54 by [...] List clean-up per request of Phys. EHR [facility] Diabetes mellitus Problem List clean-up per request of Phys. EHR Cmte Hypertension Problem List clean-up per request of Phys. EHR [facility] Surgical History History of bladder suspension procedure Problem List clean-up per request of Phys. EHR [facility] H/O: hysterectomy Problem List clean-up per request of Phys. EHR [facility] History of appendectomy Problem List clean-up per request of Phys. EHR [facility] History of heart artery stent Problem List clean-up per request of Phys. EHR [facility] Family History (Updated 06/01/23 @ 08:45 [...] DAILY 04/25/19 [History Confirmed 12/11/23] omega-3s 300 qo-fmw-kbn-other hoscw9b-pwow oil 1,000 mg capsule ([place]-3 Fish Oil) 2 cap PO BID 04/25/19 [...] Posterior Thigh: Bed Appearance: Beefy Red and [place] Percent of Wound Bed Granulated/Red: 0 Percent [...] <Electronically signed by FERNY Mathews> 02/13/24 10[address] [facility] Work Phone: 1(612) 846-990105-21-2024 Progress note Author Janell Mathews [facility] January 30, 2024 10:44am Note Date/Time January 30, 2024 10:44 am [facility] [address] [place] [address] Wound Center Provider Note Signed Patient: Harman Mcleod MR#: [id number] : 1940 Acct:[id number] Age/Sex: 83 / F Copies to: MD Janell Oliver APRN~ HPI Date of Visit Date of Visit: Date of Service: 01/30/2024 Time of Service: 10:37 Narrative HPI: 12/11/23 Harman is an 83 year old presenting to psychiatric hospital wound care for an initial visit [...] the entire visit, [facility], the left leg will be [...] spoke about her getting established with a portfolio consultant and so hopefully she will follow through [...] bilateral lower leg ulcers Mode of Arrival/ Senior Software Quality Engineer: Friend Assistive Device Used Today: Walker Lives with:: Significant Other Appetite Description: Within Normal Limits Who helps w/ dressing change?: Home Health Why Do You Need Help?: Can't Reach Ulcer, Limited mobility, Unsafe leave home byself and Taxing effort to leave home Smoking Status: Former smoker [facility] Medical History (Updated 01/30/24 @ 10:43 by [...] List clean-up per request of Phys. EHR [facility] Diabetes mellitus Problem List clean-up per request of Phys. EHR [facility] Hypertension Problem List clean-up per request of Phys. EHR [facility] Surgical History History of bladder suspension procedure Problem List clean-up per request of Phys. EHR [facility] H/O: hysterectomy Problem List clean-up per request of Phys. EHR [facility] History of appendectomy Problem List clean-up per request of Phys. EHR [facility] History of heart artery stent Problem List clean-up per request of Phys. EHR [facility] Family History (Updated 06/01/23 @ 08:45 [...] DAILY 04/25/19 [History Confirmed 12/11/23] omega-3s 300 wh-vwb-ejg-other jvqfq1w-tlay oil 1,000 mg capsule ([place]-3 Fish Oil) 2 cap PO BID 04/25/19 [...] Posterior Thigh: Bed Appearance: Beefy Red and [place] Percent of Wound Bed Granulated/Red: 100 Percent [...] <Electronically signed by FERNY Mathews> 01/30/24 1044 [facility] Work Phone: 1(283) 443-992104-18-2024 Progress note Author Janell Mathews [facility] December 28, 2023 11:22am Note Date/Time December 28, 2023 11: 22am [facility] [address] [place] [address] Wound Center Provider Note Signed Patient: Harman Mcleod MR#: [id number] : 1940 Acct:[id number] Age/Sex: 83 / F Copies to: MD Janell Oliver APRN~ HPI Date of Visit Date of Visit: Date of Service: 12/28/2023 Time of Service: 11:19 Narrative HPI: 12/11/23 Harman is an 83 year old presenting to psychiatric hospital wound care for an initial visit [...] present for the entire visit, she has [facility], the left leg will be [...] wrapped again today for good measure and [facility] can remove next week and start stockings or wraps if something is open on the legs, family and friend present for the visit, does not need to return to the office unless new ulcers do develop, spoke about her getting established with a portfolio consultant and so hopefully she will follow through on that, spoke about compression socks too forlong term use Subjective Pain Left Leg: Pain Intensity: 0 Wound/Ulcer History When did wound start?: August 2023 bilateral lower leg ulcers Mode of Arrival/ Senior Software Quality Engineer: Friend Assistive Device Used Today: Walker Lives with:: Significant Other Appetite Description: Within Normal Limits Who helps w/ dressing change?: Home Health Why Do You Need Help?: Can't Reach Ulcer, Limited mobility, Unsafe leave home byself and Taxing effort to leave home Smoking Status: Former smoker [facility] Medical History (Updated 12/11/23 @ 09:30 by [...] DAILY 08/15/19 [History Confirmed 12/11/23] omega-3s 300 mv-qnz-dbt-other tovyg6v-sbde oil 1,000 mg capsule ([place]-3 Fish Oil) 2 cap PO BID 04/25/19 [...] <Electronically signed by FERNY Mathews> 12/28/23 112[address] [facility] Work Phone: 1(575) 598-192304-01-2024 Progress note Author Janell Mathews [facility] December 11, 2023 9:35am Note Date/Time December 11, 2023 9:35 am [facility] [address] [place] [address] Wound Center Provider Note Signed Patient: Harman Mcleod MR#: [id number] : 1940 Acct:[id number] Age/Sex: 83 / F Copies to: MD Janell Oliver APRN~ HPI Date of Visit Date of Visit: Date of Service: 12/11/2023 Time of Service: 09:27 Narrative HPI: 12/11/23 Harman is an 83 year old presenting to psychiatric hospital wound care for an initial visit [...] present for the entire visit, she has [facility], the left leg will be [...] bilateral lower leg ulcers Mode of Arrival/ Senior Software Quality Engineer: Friend Assistive Device Used Today: Walker Lives with:: Significant Other Appetite Description: Within Normal Limits Who helps w/ dressing change?: Home Health Why Do You Need Help?: Can't Reach Ulcer, Limited mobility, Unsafe leave home byself and Taxing effort to leave home Smoking Status: Former smoker [facility] Medical History (Updated 12/11/23 @ 09:30 by [...] List clean-up per request of Phys. EHR [facility] History of heart artery stent Problem List clean-up [facility] Family History (Updated 06/01/23 @ [...] DAILY 04/25/19 [History Confirmed 12/11/23] omega-3s 300 xl-ugv-zni-other mtowv5k-ggof oil 1,000 mg capsule ([place]-3 Fish Oil) 2 cap PO BID 04/25/19 [...] Breakdown Bed Appearance: Epithelial Tissue or Bridge, [place] and Yellow Percent of Wound Bed Granulated/Red: [...] By: <Electronically signed by FERNY Mathews> 12/11/[address]34 [facility] Work Phone: 1(908) 343-138910-10-2023 NoteHNO ID: [id number] Author: Winnie Guzmán PA-C Service: ? Author Type: Physician [employer] As[employer]er Type: Progress Notes Filed: 06/20/2023 3:58 PM Note Text: PATIENT NAME: Harman Mcleod CLINIC NO.: [id number] ATTENDING PHYSICIAN: Wallace Stone MD DATE OF [...] Negative LVI, 2 SNL negative, ER and GA >95% positive, Her2 IHC 1+ Treatment History: [...] 6.4 10/24/2017 7.3 Al (more content not included)...[facility]10-10-2023 Nurse Note * Lina Lopes MA - 06/20/2023 2:49 PM EDT Patient would like to know if she needs a mammogram? She was told in Oct that she would need one in6 months. Lina Lopes MA documented in [facility] History of Present illness Narrative* Winnie Guzmán PA-C - 06/20/2023 2:30 PM EDT Images from the original note were not included. PATIENT NAME: Harman Mcleod CLINIC NO.: [id number] ATTENDING PHYSICIAN: Wallace Stone MD DATE OF [...] Negative LVI, 2 SNL negative, ER and GA >95% positive, Her2 IHC 1+ Treatment History: [...] Range Status 06/20/2023 4.8 % Final Abs [place] Date Value Ref Range Status 06/20/2023 0.49 [...] follow up. R Breast T1b,N0,M0- ER and GA >95% positive and Her-2 IHC 1+ tumor post Lumpectomy and SNL 10/2022. Reviewed path and she elected not to proceed with XRT and started Arimidex in 11/2022. Continues to tolerate well. Mammogram in 07/2023 (order placed). See us in 4 months. Plan is for 5 years of AI therapy Osteoporosis- On Prolia started 08/[address] Perry Vulvar high grade dysplasia- Follows [facility] at [facility] R Leg swelling and pain and h/o PVD- Follows vascular HTN--managed by PCP Winnie Guzmán PA-C CC: MD Mateus Spicer MD documented in this [facility] Evaluation note* Encounter Date Diagnosis [...] In addition I took her to the [facility] and performed a right iliac venogram which [...] offer her a second opinion at the [facility] vascular medicine program. She declined. I will see her as needed in the future. [facility] Other 06-29-2023 Evaluation note* Encounter Date Diagnosis [...] to call us with any concerns whatsoever. [facility] 06-06-2023 NoteHNO ID: [id number] Author: Wallace Stone MD Service: ? Author Type: Physician Type: Progress Notes Filed: 02/14/2023 10:49 AM Note Text: PATIENT NAME: Harman Mcleod CLINIC NO.: [id number] ATTENDING PHYSICIAN: Wallace Stone MD DATE OF [...] Negative LVI, 2 SNL negative, ER and GA >95% positive, Her2 IHC 1+ Treatment History: [...] 04/28/2020 1.12 BUN (mg/dL) (more content not included)...[facility]06-06-[facility] History of Present illness Narrative* Wallace Stone MD - 02/14/2023 10:37 AM EDT Images from the original note were not included. PATIENT NAME: Harman Mcleod CLINIC NO.: [id number] ATTENDING PHYSICIAN: Wallace Stone MD DATE OF [...] Negative LVI, 2 SNL negative, ER and GA >95% positive, Her2 IHC 1+ Treatment History: [...] Range Status 02/14/2023 8.3 % Final Abs [place] Date Value Ref Range Status 02/14/2023 0.86 [...] follow up. R Breast T1b,N0,M0- ER and GA >95% positive and Her-2 IHC 1+ tumor post Lumpectomy and SNL 10/2022. Reviewed path and she elected not to proceed with XRT and started Arimidex in 11/2022 and toleraing well. Plan for 5 years of therapy. Osteoporosis- On Prolia started 08/[address] Perry Vulvar high grade dysplasia- Follows [facility] at [facility] R Leg swelling and pain and h/o PVD- Follows vascular HTN Rash- refer to Derm Thank you for the kind referral. If there are any questions and or concerns please do not hesitate to contact me at [phone]. Wallace Stone MD Hematology/Medical Oncology [facility] I spent a total of 30 minutes on the date of the service which included preparing to see the patient, [id number] patient care, completing clinical documentation, obtaining and/or reviewing separately obtained history, performing a medically appropriate examination, counseling and educating the pat ient/family/caregiver, and ordering medications, tests, or procedures. CC: MD Mateus Spicer MD documented in this encounterMer[facility] Evaluation note* Encounter Date Diagnosis [...] primary care provider as well as her billposter. We will continue to follow her along and see her again in a couple of months and see how she is doing with her pumps, conservative efforts, and weight management. She knows to call us in the meantime with any other additional concerns or complaints. [facility] Other 03-21-2023 [facility]* Encounter Date Diagnosis Assessment [...] specified soft tissue disorders (ICD-10 - M79.89) [facility] Other 03-08-2023 Miscellaneous Notes* Telephone Encounter - Adriana Pereira Pss - 11/16/2022 8:40 AM EST Called Vascular office spoke with Jessy. They have received this referral and have patient scheduledwith Dr Gonzales on 11/23 @ 10:00. Adriana Pereira Pss * Telephone Encounter - Kira Ko [facility] - 11/10/2022 9:38 AM EST Records faxed. * Telephone Encounter - Adriana Pereira [facility] - 11/10/2022 8:46 AM EST Janeth: Information ready for you. Adriana Pereira Pss * Telephone Encounter - Carlos Brooks - 11/09/2022 2:44 PM EST Vascular Consult [facility] Previous patient of Dr. Mendez 3 years or more. Janeth/Dudley: Can you please refer patient and follow up? Thanks! Carlos Brooks documented in this encounterMercy Health St. [facility]03-01-2023 NoteHNO ID: [id number] Author: Wallace Stone MD Service: ? Author Type: Physician Type: Progress Notes Filed: 11/09/2022 2:24 PM Note Text: PATIENT NAME: Harman Mcleod CLINIC NO.: [id number] ATTENDING PHYSICIAN: Wallace Stone MD DATE OF SERVICE: November 09, [address] Banks referring provider defined for this encounter. here is an update on a follow up visit on female Harman Mcleod at the clinic 11/09/2022 Diagnosis: T1b, N0, M0- R breast, Tumor 9 mm, Grade 2, Margins negative, Negative LVI, 2 SNL negative, ER and GA >95% positive, Her2 IHC 1+ Treatment History: [...] Value 0 (more content not included)...[facility] [id number] History of Present illness Narrative* Wallace Stone MD - 11/09/2022 2:00 PM EST Images from the original note were not included. PATIENT NAME: Harman Mcleod CLINIC NO.: [id number] ATTENDING PHYSICIAN: Wallace Stone MD DATE OF SERVICE: November 09, 2022 Dear No referring provider defined for this encounter. here is an update on a follow up visit on female Harman Mcleod at the clinic 11/09/2022 Diagnosis: T1b, N0, M0- R breast, Tumor 9 mm, Grade 2, Margins negative, Negative LVI, 2 SNL negative, ER and GA >95% positive, Her2 IHC 1+ Treatment History: [...] follow up. R Breast T1b,N0,M0- ER and GA >95% positive and Her-2 IHC 1+ tumor post Lumpectomy and SNL 10/2022. Reviewed path and she may skip radiation and also discussed hormonal; therapy with an AI and she will start Arimidex. Discussed adverse events and she wishes to proceed. Osteoporosis- On Prolia started 08/[address] Perry Vulvar high grade dysplasia- Follows [facility] and next appointment 11/24/2022 CRI R Leg swelling and pain and h/o PVD- refer to vascular HTN Thank you for the kind referral. If there are any questions and or concerns please do not hesitate to contact me at [phone]. Wallace Stone MD Hematology/Medical Oncology [facility] [place] spent a total of 30 minutes on the date of the service which included preparing to see the patient, idya-vy-ughn patient care, completing clinical documentation, obtaining and/or reviewing separately obtained history, performing a medically appropriate examination, counseling and educating the pat ient/family/caregiver, and ordering medications, tests, or procedures. CC: MD Mateus Spicer MD documented in this encounterMercy Health St. [facility]02-08-2023 NoteOPERATIVE NOTE OPERATION DATE: 10/19/2022 PREOPERATIVE DIAGNOSIS: Right breast cancer. POSTOPERATIVE DIAGNOSIS: Right breast cancer. PROCEDURE: Needle localized right breast lumpectomy with sentinel lymph node biopsy. SURGEON: Iliana Gagnon M.D. ANESTHESIA: General laryngeal mask airway. SYNCHRO ASSEMBLER: SADI Hammer ESTIMATED BLOOD LOSS: Less than [...] in good condition. CC: Mateus Perry M.D.[id number] NoteEXAMINATION: XR CHEST 2 V HISTORY: Pre-surgery [...] Electronically authenticated by: ALFONSO GEORGE Date: 2022-10-11 12:11[facility]01-13[facility]23 NoteHNO ID: [id number] Author: Marcin Shah MD Service: ? Author Type: Physician Type: Progress Notes Filed: 2022 6:06 AM Note Text: Radiation Oncology - New Patient/Consult Note PATIENT NAME: Harman Mcleod PATIENT REQUESTING PHYSICIAN: Dr. 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 PATIENT IDENTIFICATION: This patient was seen in the Department of Radiation Oncology at the [facility] with Marcin Shah MD. She was accompanied today by her family. Final recommendations will be communicated back to the requesting physician by way of the shared medical record, or letter to requesting physician via US mail. HISTORY OF PRESENT ILLNESS: Ms. Mcleod is an 82-year-old woman from [place], [place] who was discovered on screening mammogram from July 2022 to have an abnormality within the anterior upper outer quadrant of the right breast. This was confirmed on ultrasound and she underwent stereotactic biopsy on 08/19/2022 with pathology revealing intermediate grade IDC that was ER/GA positive HER2 negative. She has met with [...] acetaminophen (TYLENOL EXTRA STRENGTH (more content not included)...[facility]01-12-2023 History of Present illness Narrative* Marcin Shah MD - 09/22/2022 11:38 PM EST Images from the original note were not included. Radiation Oncology - New Patient/Consult Note PATIENT NAME: Harman Mcleod PATIENT Signed: Marcin Shah MD I spent a total of 60 minutes on the date of the service which included preparing to see the patient, jgpa-ga-qozd patient care, and counseling and educating the patient/family/caregiver. This document has been created with the use of voice recognition technology. It may contain inaccuracies, misspellings, inaccurate syntax or inappropriate word context that are a result of the inadequacies/shortcomings of said technology/software. documented in this encounterMercy Health St. [facility]01-12-2023 NoteHNO ID: [id number] Author: Wallace Stone MD Service: ? Author Type: Physician Type: Progress Notes Filed: 09/22/2022 5:19 PM Note Text: PATIENT NAME: Harman Mcleod CLINIC NO.: [id number] ATTENDING PHYSICIAN: Wallace Stone MD DATE OF [...] provisional grade 1 through 2, ER and GA greater than 95% positive, HER2/holden negative with an IHC score of 1+ and FISH negative at [facility]. This patient was subsequently referred to Dr. Iliana Gagnon for surgical consultation. Patient denies any previous history of abnormal mammograms and or breast biopsy. She has had a recent bone density in [place] and was diagnosed with osteoporosis and started on Prolia as well. Patient has a sister who was diagnosed with breast cancer at the age of 82 and her daughter diagnosed with breast cancer at the age of 37. She quit smoking approximately 4 years ago. 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 She [...] mouth daily at bedtime. Cut in half Qulsi-3-RSO-EPA-Fish Oil 1,000 mg (120 mg-180 mg) cap [...] mellitus, type 2) (HCC) (more content not included)...[facility]01-12-2023 History of Present illness Narrative* Wallace Stone MD - 09/22/2022 5:10 PM EST Images from the original note were not included. PATIENT NAME: Harman Mcleod [facility] NO.: [id number] ATTENDING PHYSICIAN: Wallace Stone MD DATE OF [...] provisional grade 1 through 2, ER and GA greater than 95% positive, HER2/holden negative with an IHC score of 1+ and FISH negative at [facility]. This patient was subsequently referred to Dr. Iliana Gagnon for surgical consultation. Patient denies any previous history of abnormal mammograms and or breast biopsy. She has had a recent bone density in [place] and was diagnosed with osteoporosis and started on Prolia as well. Patient has a sister who was diagnosed with breast cancer at the age of 82 and her daughter diagnosed with breast cancer at the age of 37. She quit smoking approximately 4 years ago. 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 She [...] mouth daily at bedtime. Cut in half Xvslg-8-HMJ-EPA-Fish Oil 1,000 mg (120 mg-180 mg) cap [...] ductal carcinoma, provisional grade 1-2, ER and GA greater than 95% positive, HER2/holden negative with [...] me to participate in Mrs. Harman Mcleod [facility], ifthere are any questions or concerns please do not hesitate to contact me at the number below. Wallace Stone M.D. Hematology/Medical Oncology [facility] [phone] CC: MD Mateus Spicer MD I spent a total of 60 minutes on the date of the service which included preparing to see the patient, nijz-ro-cchs patient care, completing clinical documentation, obtaining and/or reviewing separately obtained history, performing a medically appropriate examination, counseling and educating the pat ient/family/caregiver, ordering medications, tests, or procedures, and communicating with other HCPs (not separately reported). documented in this encounterMercy Health St. [facility]01-12-2023 Miscellaneous Notes* Telephone Encounter - [...] involved. Lars Wilkerson RN documented in this encounterMercy Health St. [facility]12-30-2022 NoteChief Complaint consultation for right breast [...] biopsy that r evealed invasive ductal carcinoma, ER/GA +; Her2 holden negative; patient denies change [...] gms IV prior to OR SCDs [facility] [facility] [place] Ambulatory [facility] [facility] [place] Ambulatory Referral 2. 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 Ordered[place] [facility] External Ambulatory [facility] 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 Garza. documented in this encounterPAGE [facility]OSPITAL [facility]files Phone: 1(513) 998-211110-18-2022 Hospital Discharge instructions* Discharge Instructions* Brody Ken [...] urinate call your doctor documented in this encounterPAGE HOSPITAL [facility] Profiles Phone: 1(214) 845-190704-04-2022 History of Present illness Narrative* Brody Ken [...] Plunkett MD - 12/13/2021 2:12 PM EDT [facility] Attending Note Patient seen and evaluated [...] chart for or 12/13/21 documented in this [facility] Phone: [phone]) 872-759804-04-2022 Evaluation note* Diagnosis Vaginectomy w/ Cysto 12/13/21- Primary Other postprocedural status documented in this encounter [employer] Phone: [phone]) 681-864804-04-2022 Hospital Discharge instructions* Instructions* Brody Ken RN [...] of: May 19, 2021 Content Version: 13.2 [employer]. Care instructions adapted under license by [employer]. If you have questions about a medical condition or this instruction, always ask your healthcare professional. [employer] disclaims any warranty or liability for your [...] urinate call your doctor documented in this [facility] Work Phone: [phone]) 403-145203-28-2022 History of Present illness Narrative* YANA Wallis [...] Disease: Yes, stents x 3, Dr. Keyes ([facility]) Hypertension: yes Active smoker: Quit 2017, [...] potassium 3.3,wbc 12.6 documented in this [facility] hospital[facility] Phone: [phone] Hospital Discharge instructions* Instructions* Yoanna Diaz PA [...] drive you home after your procedure. Your company driver must be 18 years of age [...] questions, call the Pre-Admission Testing Unit at [phone]. Day of Surgery/Procedure As a patient at [facility] you can expect quality medical and nursing care that is centered on your individual needs. Our goal is to make your surgical experience as comfortableas possible . Directions to the Surgery Center [facility] is located at [address] [place] [address]. Please pull into the Emergency parking lot and stop at the cloth cutter richards. We offer free cloth cutter service for all our surgery patients, if you choose not to have cloth cutter parking we have additional parking across the street.You will enter the facility following the [facility] sign. Please stop at the squadron worker desk where you will be checked in by the staff. If you have any questions please call [phone]. Transportation after your procedure. You will need a friend or family member to drive you home after your procedure. Your company driver must be18 years of age or [...] You may shave your face or neck. [place] your teeth but do not swallow water. [...] or the day of surgery, please call [phone], or [phone] documented in this [facility] Phone: [phone] 380-863710-05-2021 History of Present illness Narrative* Parvin Rogel RN - 06/15/2021 10:[address] Kamla gan, pt cleared for phase II * Alla Dickerson DO - 06/15/2021 9:42 AM EDT OB Resident Progress Note Patient may be discharged home once she has met criteria in the PACU. Please perfect serve or page COMPRESSOR STATION ENGINEER resident listed below with any questions, concerns, or if patient has not met PACU discharge criteria in 2-3 hours. . Please page first. Alla Dickerson DO COMPRESSOR STATION ENGINEER Resident PGY3 Pager: [phone] [facility] 06/15/2021, 9:42 AM documented in this encounterMagink display technologies Phone: [phone] 371-686010-04-2021 Hospital Discharge instructions* Instructions* Alla Dickerson DO [...] cleared by your physician documented in this encounterMagink display technologies Phone: [phone] Hospital Discharge instructions* Instructions* Na Cabezas APRN [...] public transportation ALONE is not acceptable. -Your company driver must be 18 years of age [...] Day of Surgery/Procedure As a patient at [facility] you can expect quality medical and nursing care that is centered on your individual needs. Our goal is to make your surgical experience as comfortableas possible . Directions to the Surgery Center [facility] is located at [address] [place] [address]. Please pull into the Emergency/Surgery Center parking lot and stop at the cloth cutter richards. We offer free cloth cutter service for all our surgery patients, if you choose not to have cloth cutter parking we have additional parking across the [...] pharmacy bottles in a zip lock bag. [place] your teeth but do not swallow water. [...] DAY OF your surgery, you may call [phone] documented in this [employer] Phone: [phone] 249-962309-01-2021 History of Present illness Narrative* Mandy Baker [...] Pedal edema Pneumonia PVD (peripheral vascular disease) ([facility]) Thyroid disease Under care of team 05/12/2021 dr Perry [facility]-last visit apr 2021 Under care of team 05/12/2021 [facility] Varicose vein of leg [...] outside provider), cardiac stentx 3. Last saw billposter in December 2020. On Eliquis and aspirin prescribed from her billposter. Medical or cardiac clearance ordered: cardiac FERNY Andres CNP 05/12/21 2:43 PM documented in this [facility]Community [facility] [employer] Work Phone: evaluation + Plan noteGeneral Surgery [place] Evaluation + Plan note Future Appointments Appointment Date:11/08/2022 02:00:00 PM Scheduled Provider:Iliana GAGNON MD Location:[facility] Appointment Type:[facility] General Surgery [place] Evaluation + Plan note Future Appointments Appointment Date:11/22/2022 01:40:00 PM Scheduled Provider:Iliana GAGNON MD Location:[facility] Appointment Type:[place] [address] General Surgery [place] evaluation note* Diagnosis Pre-op chest exam Pre-operative respiratory examination documented in this encounter [employer] Phone: evaluation note* Diagnosis S/p Partial vaginectomy with Ultrasonic Scalpel 06/15/21- 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, 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 documented in this encounter [employer] Phone: evaluation note* Diagnosis Pre-op chest exam Pre-operative respiratory examination documented in this encounter [employer] 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 documented in this encounter [employer] GARRETTWHIT [employer] Phone: evaluation note* Diagnosis 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, estrogen receptor positive (HCC)- Primary [facility] this encounter [facility]* Diagnosis 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 breast in female, estrogen receptor positive (HCC)- Primary documented in this encounter [facility]* Diagnosis 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* Diagnosis Onset Date Resolution Status Altered mental status acute Diabetes mellitus acute Edema of both lower legs acu te Inflammation acute Leg ulcer, left acute Leg wound, right acute Open wound of left thigh acu te Uses walker acute Varicose veins of both legs with edema acute [facility] Work Phone: Evaluation note* Diagnosis Onset Date Resolution Status Altered mental status acute Diabetes mellitus acute Edema of both lower legs acu te Inflammation acute Leg ulcer, left acute Leg wound, right acute Open wound of left thigh acu te PAD (peripheral artery disease) acute Uses walker acute Varicose veins of both legs with edema acute [facility] Work Phone: Evaluation note* Diagnosis Hav (hallux abducto valgus), left- Primary Venous insufficiency Unspecified venous (peripheral) insufficiency Acquired deformity of left toe 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 ([facility]) Diabetes mellitus due to underlying condition with diabetic polyneuropathy, 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 ([facility]) Pain due to onychomycosis of toenails of both feet documented in this encounter [facility] HealthcareHistory general Narrative - Reported* Type Description Date Medical History DIABETES Medical History HTN Medical History ASTHMA Medical History 3 HEART STENT AND 1 LEG Medical History HYPERLIPIDEMIA Medical History HYPOTHYROID Medical History PAD Surgical History STENT PLACEMENTS Surgical History PSEUDO ANURYSM Surgical History BLADDER SUSPENSION Surgical History HYSTERECTOMY Surgical History RLE & RT RENAL DSA'S, ANGIOPLAS TIES & STENTING 04-25-2019 [employer] Other History general Narrative - Reported* Type [...] History VAGINAL ABLASION OF CANCER CELL S [employer] Other Hospital course Narrative No data available for this section General Surgery [facility] Discharge instructions No data available for this section General Surgery [facility] Progress note No data available for this section General Surgery [facility] Reason for referral (narrative) Referred by: Iliana GAGNON MD Referred by: Iliana GAGNON MD General Surgery [place] Reicmg for referral (narrative)* Diagnostic Procedure Only (Routine) - Pending Review Specialty Diagnoses / Procedures Referred By Jacinta fernandez Referred To Contact [facility] Diagnoses 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, estrogen receptor positive (HCC) Procedures [facility] DI[facility]NOSTIC BILATERAL DIAGNOSTIC MAMMOGRAPHY COMPUTER-AIDED DETCJ Winnie Guzmán PA-C [address] [place] [address] [place] [address] [facility] [address] [place] [address] Referral ID Status Reason Start Date Expiration Date Visits Requested Visits Authorized [id number] Pending Review Auto-Generat ed Referral 3 07/19/2024 1 1 [facility] for visit Narrative* Auth/Cert Specialty Diagnoses / Procedures Referred By Jacinta fernandez Referred To Contact Diagnoses Vaginal dysplasia VAGINAL DYSPLASIA Procedures GA OFFICE/OUTPT VISIT,PROCEDURE ONLY GA COMPLETE REMOVAL OF VAGINA WALL GA CYSTOURETHROSCOPY CYSTOSCOPY, VAGINECTOMY Emma Garza MD [address] [facility] [address], [facility] [address] [place] [address] [employer] [address] [place] [address] Referral ID Status Reason Start Date Expiration Date Visits Re quested Visits Authorized [id number] 1 1 [employer] Phone: Summary Purpose Family History Relationship Condition Age at Onset Recorded Date/T josephine father Unknown mother Unknown Advance Directives Latest Code Status on File Code Status Date Activated Date Inactivated Comments Full Code 06/28/2022 6:57 AM Documents on File Type Date Recorded Patient Guest Relations Associate Expl anation Advance Directive(s) 01/16/2017 3:59 PM Documents on File Type Date Recorded Patient Guest Relations Associate Expl anation Advance Directive(s) 01/16/2017 3:59 PM [...] [address] [place] [address] Specialty Diagnoses / Procedures Referred By Contac t Referred To Contact Cardiology Diagnoses Pre-op chest exam Procedures EKG 12 lead Kimmie, Latonia, PA-C [address] [place] [address] Referral ID Status Reason Start Date Expiration Date Visits Re quested Visits Authorized [id number] Open 11/22/2021 11/22/2022 1 1 Specialty Diagnoses / Procedures Referred By Contac t Referred To Contact Vascular Surgery Diagnoses Claudication in peripheral vascular disease (HCC) Procedures CONSULT TO VASCULAR SURGERY OFFICE/OUTPATIENT [facility] 60-74 MINUTES Wallace Stone MD [address] [place] [id number] Referral ID Status Reason Start Date Expiration Date Visits Requested Visits Authorized [id number] Authorized PCP Requested Referral 11/16/2022 11/09/2023 1 1 Specialty Diagnoses / Procedures Referred By Contac t Referred To Contact Dermatology Diagnoses Rash Other eczema Procedures CONSULT TO DERMATOLOGY OFFICE/OUTPATIENT [facility] 60-74 MINUTES Wallace Stone MD [address] [place] [id number] Referral ID Status Reason Start Date Expiration Date Visits Requested Visits Authorized [id number] Authorized PCP Requested Referral 02/14/2023 02/14/2024 1 [...] and content) DATE CREATED AUTHOR 02/05/2021 [facility] DATE CREATED AUTHOR AUTHOR'S ORGANIZ ATION 01/22/2023 [facility] DATE CREATED AUTHOR AUTHOR'S ORGANIZ ATION 06/22/2023 [facility] DATE CREATED AUTHOR AUTHOR'S ORGANIZ ATION 06/23/2023 [facility] DATE CREATED AUTHOR AUTHOR'S ORGANIZ ATION 07/13/2023 [facility] DATE CREATED AUTHOR AUTHOR'S ORGANIZ ATION 05/03/2024 [facility] DATE CREATED AUTHOR AUTHOR'S ORGANIZ ATION 06/14/2024 [facility] DATE CREATED AUTHOR AUTHOR'S ORGANIZ ATION 06/22/2024 [facility] EPIC Reason for Visit (unrecogniz ed section and content) Status Reason Specialty Diagnoses / Procedures Re ferred By Contact Referred To Contact Diagnoses 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 Procedures GA REMOVE VAGINA WALL, PARTIAL GA COLPOSCOPY,CERVIX W/ADJ VAGINA PARTICAL VAGINECTOMY WITH ULTRASONIC SCAPEL VAGINAL COLPOSCOPY WITH MICROSCOPE Kin Abarca MD [address] [facility] [phone] [address] [facility] Specialty Diagnoses / Procedures Referred By Contac t Referred To Contact Diagnoses Vaginal dysplasia VAGINAL DYSPLASIA Procedures GA OFFICE/OUTPT VISIT,PROCEDURE ONLY GA DESTRUCT,VAGINAL LESION(S),SIMPLE CO2 LASER VAPORIZATION OF LESIONS (FORT CONF# [id number] - JEREMIAS) Emma Garza MD [address] [facility] [address] [place] [address] [facility] [address] [place] [address] Referral ID Status Reason Start Date Expiration Date Visits Re quested Visits Authorized [id number] 1 1 Reason Comments Care Coordination Surgery [...] 25 g 1 06/28/2022 bacitracin-polymyxin b (POLYSPORIN) [id number] UNIT/GM ointment Apply topically 2 times daily. [...] g 0 06/28/2022 06/28/2022 bacitracin-polymyxin b (POLYSPORIN) [id number] UNIT/GM ointment Apply topically 2 times daily. [...] 24, 2024 End: April 24, 2024 Janell Mtahews APRN Attending Provider Active St art: April 24, 2024 End: April 24, 2024 Team Status: Active Member Role Status Nila Perry MD Primary Care Provider Active Start: March 26, 2024 Janell Mathews APRN Attending Provider Active art: March 26, 2024 Paid Intern Relationship Specialty Start Date End Date Mateus Perry MD [address] [place] [address] PCP - General Family Medicine 03/04/21 Paid Intern Relationship Specialty Start Date End Date Mateus Perry MD [address] [place] [facility] [place] [address] PCP - General Family Medicine 03/04/21 Paid Intern Relationship Specialty Start Date End Date Mateus Perry MD [address] [place] [facility] [place] [address] PCP - General Family Medicine 03/04/21 Paid Intern Relationship Specialty Start Date End Date Mateus Perry MD [address] [place] [facility] [place] [address] PCP - General Family Medicine 03/04/21 Paid Intern Relationship Specialty Start Date End Date Mateus Perry MD PCP - General Family Medicine 01/05/17 Paid Intern Relationship Specialty Start Date End Date Mateus Peryr MD PCP - General Family Medicine 01/05/17 Paid Intern Relationship Specialty Start Date End Date Mateus Perry MD PCP - General Family Medicine 01/05/17 Paid Intern Relationship Specialty Start Date End Date Mateus Perry MD PCP - General Family Medicine 01/05/17 Paid Intern Relationship Specialty Start Date End Date Mateus Perry MD PCP - General Family Medicine 01/05/17 Paid Intern Relationship Specialty Start Date End Date Mateus Perry MD PCP - General Family Medicine 01/05/17 Paid Intern Relationship Specialty Start Date End Date Mateus Perry MD [address] [place] [facility] [place] [address] PCP - General Family Medicine 03/04/21 Team Status: Inactive Member Role Status Dates Mateus Perry MD Primary Care Provider Active Christiano Gonzales MD Attending Provider Active Paid Intern Relationship Specialty Start Date End Date Mateus Perry MD PCP - General Family Medicine 01/05/17 Paid Intern Relationship Specialty Start Date End Date Mateus Perry MD PCP - General Family Medicine 01/05/17 Team Status: Inactive Member Role Status Dates Mateus Perry MD Primary Care Provider Active Start: May 01, 2024 End: May 01, 2024 Christiano Gonzales MD Attending Provider Active Start: May 01, 2024 End: May 01, 2024 Paid Intern Relationship Specialty Start Date End Date Mateus Perry MD [address] [place] [phone] PCP - General Family Medicine 02/14/24 Paid Intern Relationship Specialty Start Date End Date Mateus Perry MD [address] [place] [address] PCP - General Family Medicine 02/14/24 Source Comments (unrecognize d section and content) In the event this informatio n is protected by the Federal Confidentiality of Alcohol and Drug Abuse Patient Records regulations: The Federal rules restrict any use of the information to criminally investigate or prosecute any alcohol or drug abuse patient.[facility] Center[facility] the event this information is protected by the Federal Confidentiality of Alcohol and Drug Abuse Patient Records regulations: The Federal rules restrict any use of the information to criminally investigate or prosecute any alcohol or drug abuse patient.[facility] Center[facility] the event this information is protected by the Federal Confidentiality of Alcohol and Drug Abuse Patient Records regulations: The Federal rules restrict any use of the information to criminally investigate or prosecute any alcohol or drug abuse patient.[facility] Center[facility] the event this information is protected by the Federal Confidentiality of Alcohol and Drug Abuse Patient Records regulations: The Federal rules restrict any use of the information to criminally investigate or prosecute any alcohol or drug abuse patient.[facility] Center[facility] the event this information is protected by the Federal Confidentiality of Alcohol and Drug Abuse Patient Records regulations: The Federal rules restrict any use of the information to criminally investigate or prosecute any alcohol or drug abuse patient.[facility] Center[facility] the event this information is protected by the Federal Confidentiality of Alcohol and Drug Abuse Patient Records regulations: The Federal rules restrict any use of the information to criminally investigate or prosecute any alcohol or drug abuse patient.[facility] CenterIn the event this information is protected by the Federal Confidentiality of Alcohol and Drug Abuse Patient Records regulations: The Federal rules restrict any use of the information to criminally investigate or prosecute any alcohol or drug abuse patient.[facility] CenterIn the event this information is protected by the Federal Confidentiality of Alcohol and Drug Abuse Patient Records regulations: The Federal rules restrict any use of the information to criminally investigate or prosecute any alcohol or drug abuse patient.[facility] Goals (unrecognized section and content) [...] BE BASED ON THE PRIMARY CLINICAL RECORDS. [employer] [facility]. provides no warranty or guarantee of the accuracy or completeness of information in this document.
[2024-06-26 10:00] LABS: Lactate/Lactic Acid 1.9 mmol/L (0.4-2.0)
[2024-06-26 10:09] LABS: Troponin I High Sensitivity 17.7 pg/mL (4.0-51.3)
[2024-06-26 11:17] LABS: Hematocrit 42.6 % (36.0-48.0); Hemoglobin 13.7 g/dL (12.0-16.0); Mean Corpuscular HGB Conc 32.2 g/dL (29.9-35.2); Mean Corpuscular Hemoglobin 30.9 pg (26.7-34.0); Mean Corpuscular Volume 96.2 fL (81.0-99.0); Mean Platelet Volume 9.3 fL (9.5-13.5); Platelet Count 208 10^3/uL (150-450); Red Blood Count 4.43 10^6/uL (4.20-5.40); White Blood Count 11.1 10^3/uL (4.0-11.0)
[2024-06-26 11:27] LABS: Glucometer 124 mg/dL (74-106)
[2024-06-26] MEDS: LIOTHYRONINE SODIUM 5 MCG TABLET 10 MCG PO (11:40)
[2024-06-26] MEDS: METOPROLOL SUCCINATE 100 MG TAB.ER.24H 200 MG PO (11:40)
[2024-06-26] MEDS: FEBUXOSTAT 40 MG TABLET PO (11:40)
[2024-06-26] MEDS: PANTOPRAZOLE SODIUM 40 MG VIAL IV ×2 (11:40→21:31)
[2024-06-26] MEDS: SUCRALFATE 1 GM TABLET PO ×3 (11:41→21:22)
[2024-06-26] MEDS: FUROSEMIDE 40 MG TABLET PO ×2 (11:41→21:22)
[2024-06-26] MEDS: LEVOTHYROXINE SODIUM 112 MCG TABLET PO (11:41)
[2024-06-26] MEDS: ISOSORBIDE MONONITRATE 60 MG TAB.ER.24H PO (11:41)
[2024-06-26] MEDS: FERROUS SULFATE 325 MG TABLET PO ×2 (11:43→21:22)
--- NOTE | 2024-06-26 11:56 | W.PM.WC_ITS ---
Wound Consult Note Assessment and Plan (1) Lower gastrointestinal hemorrhage: (2) Anemia in stage 4 chronic kidney disease: (3) Morbid obesity: (4) Type 2 diabetes mellitus: Qualifiers: Diabetes mellitus correction insulin use: without correction use Diabetes mellitus complication status: without complication Qualified Code(s): E11.9 - Type 2 diabetes mellitus without complications (5) Moderate protein-calorie malnutrition: (6) CHF (congestive heart failure): (7) CAD, multiple vessel: (8) Atrial fibrillation: Qualifiers: Atrial fibrillation type: longstanding persistent Qualified Code(s): I48.11 - Longstanding persistent atrial fibrillation (9) COPD (chronic obstructive pulmonary disease): Qualifiers: COPD type: unspecified COPD Qualified Code(s): J44.9 - Chronic obst ructive pulmonary disease, unspecified (10) Hypothyroidism (acquired): Plan Consult: Right buttock ulceration, left lower leg ulceration Patient sitting up in chair with family at bedside. Patient states she has pressure ulcer to her buttocks. Patient was able to stand for assessment. She states she does get a little dizzy when standing. Patient found to have healing ulcerations to bilateral buttocks (sitting region) of buttocks. Left buttocks is mostly healed. No drainage noted and no dressing in place. Skin surrounding area is darker pink but blanches easily. Right buttock ulceration has a composite dressing cover it. Peeled back to visualize. Photo taken. Appears to have been using silver collagen to treat. Wound bed is shallow with new epithelial edges migrating in and old collagen to the wound base. Measures 0.6cmx0.6cmx0.1cm. Patient also reports she has an open ulceration to her left lower leg as well. States she hit her leg with the oracle soa developer door at home. Dr. Roper, her child daycare worker, cleaned it up at her last appointment and provided her with silver collagen to treat. Appears to be healing well, will continue this treatment of change every 3 days while inpatient. Area measures 1.1cmx0.6cmx0.1cm. Provided patient with an air seat cushion and a tube of triad wound paste as treatment for her buttocks ulcerations. Stressed that frequent stooling may soil her dressing and cause skin shearing from adhesive of bandage. States she will try the triad if that happens. Encouraged her to allow nurses to apply to her left buttock to protect newly healed ulceration. Moisturizer of choice to intact BLE skin is also encouraged. Recommendations: Continue wound care as she was completing at home (Silver collagen changing every 3 days to right buttock and left lower leg) May use triad to bilateral buttocks if frequent stooling Air cushion to chair Moisturizer to BLE per patient choice Photos in chart Orders in chart Please call [phone] with any questions or concerns. Ervin Matute RN, CWON
--- NOTE | 2024-06-26 12:34 | SWNOTE1 ---
SW reviewed therapy notes and home health was recommended. SW to speak with pt.
--- NOTE | 2024-06-26 13:57 | SWNOTE1 ---
SHARRI met with pt and grand-daughter in room. Pt lives at home with significant other, Sreekanth. Pt uses a rollator at home. Pt voiced she was doing pretty well at home. She stated home health ended a week ago, but grand-daughter voiced it was a month ago. SW advised pt and grand-daughter that HH was recommended again. At this time pt is not sure she wants HH to come back in. SHARRI let pt know to think about it and SW to stop back in tomorrow morning. She had [facility] HH in the past.
--- NOTE | 2024-06-26 13:59 | SWNOTE1 ---
Medicare Outpatient Observation Notice reviewed and discussed with patient. Pt. verbalized understanding and signed the form. Original given to patient and copy placed in patient?s chart.
[2024-06-26] MEDS: HYDRALAZINE HCL 50 MG TABLET PO ×2 (14:24→21:22)
[2024-06-26 17:02] LABS: Hematocrit 37.1 % (36.0-48.0); Hemoglobin 12.2 g/dL (12.0-16.0); Mean Corpuscular HGB Conc 32.9 g/dL (29.9-35.2); Mean Corpuscular Hemoglobin 31.2 pg (26.7-34.0); Mean Corpuscular Volume 94.9 fL (81.0-99.0); Mean Platelet Volume 9.2 fL (9.5-13.5); Platelet Count 182 10^3/uL (150-450); Red Blood Count 3.91 10^6/uL (4.20-5.40); Red Cell Distribution Width 14.1 % (11.0-15.0); White Blood Count 8.6 10^3/uL (4.0-11.0)
[2024-06-26] MEDS: ATORVASTATIN CALCIUM 20 MG TABLET PO (21:22)
[2024-06-26] MEDS: INSULIN ASPART 300 UNIT/3 ML PEN SUBQ (21:22)
[2024-06-26 23:47] LABS: Hematocrit 36.2 % (36.0-48.0); Hemoglobin 11.9 g/dL (12.0-16.0); Mean Corpuscular HGB Conc 32.9 g/dL (29.9-35.2); Mean Corpuscular Hemoglobin 30.9 pg (26.7-34.0); Mean Platelet Volume 9.2 fL (9.5-13.5); Platelet Count 190 10^3/uL (150-450); Red Blood Count 3.85 10^6/uL (4.20-5.40); White Blood Count 8.8 10^3/uL (4.0-11.0)
[2024-06-27] VITALS (15 sets, daily range): BP systolic 105–133; BP diastolic 65–72; PULSE 76–95; TEMP 36.4–36.8; O2SAT 90–97
[2024-06-27] MEDS: LEVOTHYROXINE SODIUM 112 MCG TABLET PO (05:48)
[2024-06-27] MEDS: LIOTHYRONINE SODIUM 5 MCG TABLET 10 MCG PO (05:48)
--- NOTE | 2024-06-27 05:48 | P.DS_ITS ---
DS: Providers Provider Date of admission: 06/26/24 09:33 Primary care physician: Gil Blake MD Consults: 06/26/24 09:31 Consult to Pharmacy Routine Consulting Provider: Reason for consultation: Please [place] me when Med Rec is Updated Has provider been notified: No Occupational Therapy Eval and Treat Routine Reason for consultation: Only if needed for Rehab Has provider been notified: No Physical Therapy Eval and Treat Routine Reason for consultation: Eval and Treat Has provider been notified: No 06/26/24 09:36 Consult to Wound Care Routine Consulting Provider: Ervin Matute Reason for consultation: sacral 06/27/24 05:39 Consult to Cardiology Routine Reason for consultation: GI bleed and A-fib anticoagulation recommendations Has provider been notified: No DS: Diagnosis Discharge Diagnosis (1) Lower gastrointestinal hemorrhage: (2) Anemia in stage 4 chronic kidney disease: (3) Morbid obesity: (4) Type 2 diabetes mellitus: Qualifiers: Diabetes mellitus complication status: without complication Diabetes mellitus exterminator helper insulin use: without exterminator helper use Qualified Code(s): E11.9 - Type 2 diabetes mellitus without complications (5) Moderate protein-calorie malnutrition: (6) CHF (congestive heart failure): (7) CAD, multiple vessel: (8) Atrial fibrillation: Qualifiers: Atrial fibrillation type: longstanding persistent Qualified Code(s): I48.11 - Longstanding persistent atrial fibrillation (9) COPD (chronic obstructive pulmonary disease): Qualifiers: COPD type: unspecified COPD Qualified Code(s): J44.9 - Chronic obs tructive pulmonary disease, unspecified (10) Hypothyroidism (acquired): Plan Admission findings: Mild tachycardia with atrial fibrillation, respiratory distress, mild leukocytosis, positive occult blood secondary to acute upper versus lower gastrointestinal blood loss anemia. Patient has black and red stools. Acute upper and possibly lower GI blood loss anemia due to acute upper or lower gastrointestinal bleeding. So far hemoglobin normal. Check CBC every 6 hours. Transfuse if necessary. Start patient IV Protonix twice daily and maintain her Carafate. Hold anticoagulation for atrial fibrillation, clear liquid diet Diabetes iyswvqnk-yakblwq-ogbvylqze-insulin sliding scale , Chronic kidney disease stage IV-monitor daily Leukocytosis-this is likely secondary to demargination-no infectious etiology with no fever, no UTI symptoms no URI symptoms Mild sacral wound-consult to wound therapy Atrial fibrillation with mild rapid ventricular response-monitor daily. Hold off on Eliquis, maintain other medications Chronic combined congestive heart failure-maintain current medications COPD-stable no active symptoms Hypercholesterolemia-continue with home medications Hypothyroidism-continue with home medications Admission status: Patient with acute upper gastrointestinal bleeding. Hemoglobin is in normal range so far. Serial CBCs. If stable possible discharge tomorrow's will maintain observation status as medically necessary treatment may only span 1 midnight. If patient requires transfusion, medically necessary treatment will thus span 2 midnights and she will be changed to inpatient status DS: Summary Hospital Course Hospital Course: Patient admitted with acute lower gastrointestinal bleeding, melena and hematochezia. Serial CBCs were done about every 4-6 hours throughout the hospitalization. Her hemoglobin has remained stable she is down about 2 g overall. With the stability in the hemoglobin no further episodes of bleeding, she was started on IV Protonix at this point she can continue her Carafate we will add oral Protonix and hold her Eliquis until discussed with cardiology about further therapy. She had a planned cardioversion in 4-5 days. Will have her keep that visit. Medications see list. See me in the office tomorrow. Status at Discharge Overall status at discharge: patient is not back to baseline Time Spent with Patient Time attestation: Total time spent providing and/or coordinating discharge services: Time spent: greater than 30 minutes Exam Constitutional Vital Signs, click to edit/add: Last Vital Signs Temp 98.2 F 06/27/24 00:00 Pulse 85 06/27/24 03:53 Resp 18 06/27/24 00:00 BP 108/72 06/27/24 00:00 Pulse Ox 90 L 06/27/24 00:00 O2 Del Method Room Air 06/27/24 00:00 Documenting provider has reviewed patient's vital signs: yes Common normals: no apparent distress Chest Common normals: inspection of chest normal and palpation of chest normal Respiratory Common normals: normal respiratory effort and no retractions Cardio Common normals: irregular rate and irregular rhythm Rate: tachycardic Rhythm: abnormal rhythm GI Common normals: Normal to inspection, nondistended, normoactive bowel sounds present and soft to palpation; tender Palpation: tender Details: epigastric DS: Data Data Completed and Pending Labs on day of discharge: Labs from last 24 hours 06/26/24 06/26/24 06/26/24 22:30 16:56 11:22 WBC 8.8 8.6 RBC 3.85 L 3.91 L Hgb 11.9 L 12.2 Hct 36.2 37.1 MCV 94.0 94.9 MCH 30.9 31.2 MCHC 32.9 32.9 RDW 14.0 14.1 Plt Count 190 182 MPV 9.2 L 9.2 L Neut % (Auto) Lymph % (Auto) Gall[place] % (Auto) Eos % (Auto) Baso % (Auto) Neut # (Auto) Lymph # (Auto) [place] # (Auto) Eos # (Auto) Baso # (Auto) Abs Immat Gran (auto) Imm/Tot Granulo (auto) PT INR Sodium Potassium Chloride Carbon Dioxide Anion Gap BUN Creatinine Est GFR ( Amer) Est GFR (Non-Af Amer) BUN/Creatinine Ratio Glucose Lactate Calcium Troponin I High Sens NT-Pro-B Natriuret Pep Stool Occult Blood POC Glucose 124 H Blood Type Antibody Screen 06/26/24 06/26/24 06/26/24 11:05 09:45 07:24 WBC 11.1 H RBC 4.43 Hgb 13.7 Hct 42.6 MCV 96.2 MCH 30.9 MCHC 32.2 RDW 14.0 Plt Count 208 MPV 9.3 L Neut % (Auto) Lymph % (Auto) Gall[place] % (Auto) Eos % (Auto) Baso % (Auto) Neut # (Auto) Lymph # (Auto) [place] # (Auto) Eos # (Auto) Baso # (Auto) Abs Immat Gran (auto) Imm/Tot Granulo (auto) PT INR Sodium Potassium Chloride Carbon Dioxide Anion Gap BUN Creatinine Est GFR ( Amer) Est GFR (Non-Af Amer) BUN/Creatinine Ratio Glucose Lactate Calcium Troponin I High Sens 17.7 NT-Pro-B Natriuret Pep Stool Occult Blood POC Glucose 165 H Blood Type Antibody Screen 06/26/24 06/26/24 07:11 07:07 WBC 11.9 H RBC 4.42 Hgb 13.8 Hct 42.2 MCV 95.5 MCH 31.2 MCHC 32.7 RDW 14.0 Plt Count 215 MPV 9.2 L Neut % (Auto) 75.9 H Lymph % (Auto) 13.2 L Gall[place] % (Auto) 9.1 Eos % (Auto) 1.0 Baso % (Auto) 0.3 Neut # (Auto) 9.1 H Lymph # (Auto) 1.6 Gall[place] # (Auto) 1.1 H Eos # (Auto) 0.1 Baso # (Auto) 0.0 Abs Immat Gran (auto) 0.06 H Imm/Tot Granulo (auto) 0.5 PT 11.3 INR 1.07 Sodium 139 Potassium 4.4 Chloride 98 Carbon Dioxide 29.3 Anion Gap 16.1 BUN 29.0 H Creatinine 1.61 H Est GFR ( Amer) 37 L Est GFR (Non-Af Amer) 31 L BUN/Creatinine Ratio 18.0 Glucose 197 H Lactate 1.9 Calcium 10.7 H Troponin I High Sens NT-Pro-B Natriuret Pep 6868.0 H* Stool Occult Blood Positive A POC Glucose Blood Type A Positive Antibody Screen Negative Discharge Plan Discharge Disposition: Home, Self-Care Condition: Fair Discharge Medications: New pantoprazole [Protonix] 40 mg tablet,delayed release (DR/EC) 40 mg PO BID Qty: 60 11RF Continued albuterol sulfate 2.5 mg /3 mL (0.083 %) solution for nebulization 2.5 mg inhalation Q6H PRN (Reason: shortness of breath or wheezing) anastrozole 1 mg tablet 1 mg PO DAILY furosemide 40 mg tablet 40 mg PO Q12H isosorbide mononitrate 60 mg tablet extended release 24 hr 60 mg PO DAILY levothyroxine 112 mcg tablet 112 mcg PO .ACB liothyronine 5 mcg tablet 10 mcg PO .ACB metoprolol succinate 200 mg tablet extended release 24 hr 200 mg PO DAILY simvastatin 20 mg tablet 20 mg PO BEDTIME sucralfate 1 gram tablet 1 g PO ACHS febuxostat 40 mg tablet 40 mg PO DAILY insulin glargine [Lantus U-100 Insulin] 100 unit/mL solution 10 unit subcut QAM insulin aspart U-100 [Novolog FlexPen U-100 Insulin] 100 unit/mL (3 mL) Insulin Pen 3 - 15 unit subcut ACHS amlodipine 10 mg tablet 10 mg PO .qd hydralazine 50 mg Tablet 50 mg PO TID Qty: 90 0RF ferrous sulfate 325 mg (65 mg iron) tablet 325 mg PO BID Jardiance 10 mg tablet 10 mg PO .QD glimepiride 4 mg tablet 4 mg PO BID simvastatin 40 mg tablet 40 mg PO .QHS spironolactone 25 mg tablet 12.5 mg PO QAM metformin 500 mg tablet 500 mg PO BIDWM Held aspirin [Adult Low Dose Aspirin] 81 mg tablet,delayed release (DR/EC) 81 mg PO DAILY Hold Instructions: Resume on 06/28/24. Eliquis 5 mg Tablet 2.5 mg PO BID Qty: 60 11RF Hold Instructions: Resume on 06/28/24. Activity: resume usual activities as tolerated Diet: advance to your usual diet Print Language: Korean Patient Instructions: Pantoprazole (By mouth), Gastrointestinal Bleeding (DC) Forms: Portal Instructions Follow Up Appointments: @ 11:15am with Dr. Blake [phone]
[2024-06-27 06:16] LABS: Anion Gap 13.2; Calcium 9.6 mg/dL (8.5-10.1); Carbon Dioxide 29.3 mmol/L (21.0-32.0); Chloride 99 mmol/L (98-107); Estimated GFR (African America 39 (>=60 mL/min/1.73m^2); Estimated GFR (Non-African Ame 33 (>=60 mL/min/1.73m^2); Glucose 134 mg/dL (74-106); Potassium 3.5 mmol/L (3.5-5.1); Sodium 138 mmol/L (136-145)
[2024-06-27] MEDS: METOPROLOL SUCCINATE 100 MG TAB.ER.24H 200 MG PO (08:13)
[2024-06-27] MEDS: SUCRALFATE 1 GM TABLET PO ×3 (08:13→15:54)
[2024-06-27] MEDS: FEBUXOSTAT 40 MG TABLET PO (08:13)
[2024-06-27] MEDS: INSULIN DETEMIR 300 UNIT/3 ML INSULN.PEN 10 UNIT SUBQ (08:13)
[2024-06-27] MEDS: FERROUS SULFATE 325 MG TABLET PO (08:13)
[2024-06-27] MEDS: FUROSEMIDE 40 MG TABLET PO (08:13)
[2024-06-27] MEDS: ISOSORBIDE MONONITRATE 60 MG TAB.ER.24H PO (08:13)
--- NOTE | 2024-06-27 08:54 | CM.NOTE ---
Rounds made with Dr. Blake, pt will discharge to home today. Hgb remains stable, pt denies any stool overnight. [employer] will be consulted today for recommendations to stop or continue Eliquis. Pt is also scheduled to have ablation next week. Pt will f/u with Dr. Blake.
--- NOTE | 2024-06-27 10:14 | REH.PTDLY ---
Physical Therapy Daily Note PT Daily Note/Assess Start: 06/26/24 16:36 Freq: Status: Active Protocol: Document 06/27/24 09:20 [id number] (Rec: 06/27/24 10:14 CINTHIA [id number]) Physical Therapy Daily Note/Assessment Time In 09:05 Time Out 09:21 Subjective Pt in chair upon arrival, needs to use restroom. Pt reports she is now able to eat regular food. Hopefully will get to go home later today. Therapeutic Exercise Minutes (minutes) 5 Therapeutic Exercise Units 0 Therapeutic Exercise Treatment Instructed in B LE seated exs 10-12x ea with AP, LAQ, marching, hip abd step outs and hip add squeeze with pillow. No complaints when performing exs. Therapeutic Activity Minutes (minutes) 8 Therapeutic Activity Units 1 Therapeutic Activity Comments Sit to stand transfer from chair CGA as pt has some instability when standing fully upright before grabbing onto RW. Gait training 22 feet into restroom. SBA wit toilet transfers. Pt ind with transfers off of toilet. Pt ambulates another 35 feet with RW SBA after using restroom. Sit to stand transfers 5x from chair CGA, pt improves with each transfer and is not as unstable after standing fully upright. Total Therapy Minutes 13 Total Physical Therapy Units 1 Daily Note Summary Progressed with gait and transfers today with no unsteadiness with gait or toilet transfers. Pt does have some instability with initially standing up from chair but improves with repetition. No complaints of pain, mild nausea pt states but is waiting for her breakfast.
[2024-06-27] MEDS: SPIRONOLACTONE 25 MG TABLET 12.5 MG PO (10:17)
[2024-06-27] MEDS: PANTOPRAZOLE SODIUM 40 MG VIAL IV (10:17)
--- NOTE | 2024-06-27 10:30 | SWNOTE1 ---
SW stopped back in to speak with pt about home health. Pt's significant other and grand-daughter in room as well. SW asked pt if she would like to get home health back in the home. Pt has voiced she does not want HH at this time and is refusing services. SW did advise pt and family in room that pt is always able to contact her PCP and they can get home health arranged, they voiced understanding. Pt and family have no questions or concerns about discharge at this time. SW to follow as needed.
[2024-06-27] MEDS: INSULIN ASPART 300 UNIT/3 ML PEN SUBQ (12:16)
[2024-06-27] MEDS: HYDRALAZINE HCL 50 MG TABLET PO (14:58)
[2024-06-27 15:03] LABS: Hematocrit 39.6 % (36.0-48.0); Hemoglobin 12.9 g/dL (12.0-16.0); Mean Corpuscular HGB Conc 32.6 g/dL (29.9-35.2); Mean Corpuscular Hemoglobin 31.1 pg (26.7-34.0); Mean Corpuscular Volume 95.4 fL (81.0-99.0); Mean Platelet Volume 9.3 fL (9.5-13.5); Platelet Count 211 10^3/uL (150-450); Red Blood Count 4.15 10^6/uL (4.20-5.40); Red Cell Distribution Width 14.2 % (11.0-15.0)
--- NOTE | 2024-06-28 14:16 | CM.DCFOLLOWU ---
06/28- 1st attempt. No answer
--- NOTE | 2024-07-01 12:32 | CM.DCFOLLOWU ---
Person spoke with:patient's grand-daughter How are you feeling?well How is your pain?none Did you understand your discharge instructions?yes Do you have any questions about your discharge instructions?no Were you given any prescriptions at discharge?yes Were you able to get your prescriptions filled?yes Do you understand how to take your medications as ordered?yes Do you have any questions about your follow up appointment and do you plan to keep your follow up appointment?no questions, had follow up with PCP Is there anything else that you would like to discuss?no Questions/Comments/Concerns/Other:none
== END 2024-06-27 16:12 | disposition home or self-care (01) ==
LOC: ER 08:26 → MS 09:41
PROVIDERS: Internal Medicine; Admitting Provider Family Medicine; Emergency Provider Emergency Medicine; PCP Family Medicine; Visit Provider Family Medicine
DX: K92.2 Gastrointestinal hemorrhage, unspecified (principal); I48.91 Unspecified atrial fibrillation; R00.0 Tachycardia, unspecified; R06.03 Acute respiratory distress; D72.829 Elevated white blood cell count, unspecified; D62 Acute posthemorrhagic anemia; E11.22 Type 2 diabetes mellitus with diabetic chronic kidney disease; N18.4 Chronic kidney disease, stage 4 (severe); I50.42 Chronic combined systolic (congestive) and diastolic (congestive) heart failure; J44.9 Chronic obstructive pulmonary disease, unspecified; E78.00 Pure hypercholesterolemia, unspecified; E03.9 Hypothyroidism, unspecified; D63.1 Anemia in chronic kidney disease; E66.01 Morbid (severe) obesity due to excess calories; E44.0 Moderate protein-calorie malnutrition; I25.10 Atherosclerotic heart disease of native coronary artery without angina pectoris; L89.329 Pressure ulcer of left buttock, unspecified stage; L89.319 Pressure ulcer of right buttock, unspecified stage; L97.829 Non-pressure chronic ulcer of other part of left lower leg with unspecified severity; Z68.28 Body mass index [BMI] 28.0-28.9, adult; Z79.4 Long term (current) use of insulin; Z79.01 Long term (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; Z87.891 Personal history of nicotine dependence
CPT/HCPCS: 36415; 80048; 82948; 83605; 83880; 84484; 85025; 85027; 85610; 86850; 86900; 86901; 93005; 94761; 96361; 96374; 96376; 97163; 97165; 97530; 99285; G0328; G0378

== ENCOUNTER 2024-07-11 10:45 | Outpatient (OUT) | payer MEDICARE, OTHER, SELFPAY ==
--- NOTE | 2024-07-11 10:52 | XR_ITS ---
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 Electronic cardiac device overlies the left chest with wires extending to the heart. This appears to be in good position in these projections. There is slight diffuse increase interstitial markings throughout all lung curiel which may represent some chronic lung changes or some interstitial fluid due to congestion. The pleural effusions present on previous exam have resolved. Presently there is no evidence of pleural effusion or pneumothorax. XR/XR chest 2V IMPRESSION: 1. Stable cardiomegaly 2. Resolution of previously noted pleural effusions 3. Increased interstitial markings consistent with chronic lung changes and/or interstitial fluid Electronically authenticated by: VERNELL WAITE Date: 07/11/2024 12:43
--- OUTSIDE RECORDS SUMMARY | 2024-07-11 11:03 | XMS_ITS | CCD ---
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 Name Role Phone Mateus Perry MD Primary Care Provider [phone] Mateus Perry Primary Care Physician [phone] Mateus Perry MD Primary Care Provider [phone] Mateus Perry MD Primary Care Provider [phone] Mateus Perry Primary Care Provider [phone] Christiano Gonzales Attending Provider [phone] Christiano Gonzales Unavailable [phone] Millie Storm Unavailable SONALI MCKINNEY Admitting [...] DR BARRIENTOS Admitting Unavailable NILL ., DR BARIRENTOS Attending Unavailable HOY ., DR IGNACIO Primary Care Unavailable ARIEL, DR ALFONSO Ramirez Consulting Unavailable NILL ., DR BARRIENTOS Consulting Unavailable SONALI MCKINNEY Admitting Unavailable SONALI MCKINNEY Attending Unavailable TAWNYY ., DR IGNACIO Primary Care Unavailable MISC, [...] Unavailable HOY ., DR IGNACIO Consulting Unavailable [place], DR JUDSON Plunkett Consulting Unavailable MISC, DR [...] HOY ., DR IGNACIO Primary Care Unavailable [place], DR JUDSON Plunkett Consulting Unavailable NILL ., DR BARRIENTOS Consulting Unavailable LEONID, KRISTIN Consulting Unavailable SUNG, CARLOS Consulting Unavailable LEANA HERNANDEZ Consulting Unavailable [...] Unavailable HOY ., DR IGNACIO Consulting Unavailable [place], DR JUDSON Plunkett Consulting Unavailable HOY ., DR IGNACIO Primary Care Unavailable CARROLL, MIK Admitting Unavailable MIK HODGES Attending Unavailable MIK [...] Unavailable HOY ., DR IGNACIO Consulting Unavailable KARAMLOU, WALLACE Attending Unavailable HOY, MATEUS M Primary Care Unavailable MARCIN SHAH Attending Unavailable NILL, ILIANA R Referring Unavailable HOY, MATEUS M Primary Care Unavailable LEXISAMNAMUMAKENNARA Attending Unavailable NILL, ILIANA R Referring Unavailable [...] e HOY, MATEUS M Primary Care Unavailable HAYDEE, LATONIA Referring Unavailable MATEUS PERRY Primary Care Unavailable MATEUS PERRY Primary Care Unavailable HAYDEE, LATONIA Referring Unavailable MD Mateus Perry Primary Care Provider [phone] FERNY Mathews Attending Provider MD Mateus Perry Primary Care Provider [phone] FERNY Mathews Attending Provider Mateus Perry Primary Care Unavailable Janell Mathews Admitting Unavailable Janell Mathews Attending Unavailable Mateus Perry Primary Care Unavailable Janell Mathews Admitting Unavailable Janell Mathews Attending Unavailable PEYMAN HENSLEY Attending Unavailable Mateus Perry MD Primary Care Provider [phone] CHERYL FARIA Attending Unavailable JOSE MARIA KEYES Attending Unavailable YANG KERN Attending Unavailable Allergies Allergy Classification Reported Allergen(s) Allergy Type Date of Onset Reaction(s) Facility (18 sources) Acetaminophen / oxyCODONE; 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: [OXYCODONE-ACETAM INOPHEN] Drug Allergy 3 Other (See Comments), Intolerance, GI Upset [facility] (20 sources) Ciprofloxacin; 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: [ciprofloxacin] Drug Allergy 8 Hives, Urticaria (disorder), Other: See Comments [facility] (20 sources) oxyCODONE; 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: [oxycodone] Drug Allergy 9 Rash, Itching (finding) [facility] (19 sources) cefdinir; 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: [cefdinir] Drug Allergy 3 Vomiting (disorder), Other: See Comments, Vomiting, Other (See Comments) [facility] (10 sources) traMADol; 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: [TRAMADOL] Drug Allergy 3 Mental Status Change, Other (See Comments) [facility] (1 source) Cefuroxime Drug Allergy 2 [facility] Work Phone: (5 sources) Acetaminophen; 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: [acetaminophen] Drug Allergy 9 [facility] (2 sources) Acetaminophen / oxyCODONE Drug Allergy 3 [facility] (1 source) Cefuroxime Drug Allergy 2 [facility] (2 sources) Ciprofloxacin Drug Allergy [facility] (1 source) cefdinir Drug Allergy 4 [facility] (1 source) Ciprofloxacin Drug Allergy 4 [facility] (1 source) oxyCODONE Drug Allergy 4 [facility] (1 source) traMADol Drug Allergy 4 [facility] Medications Current Medications Medication Drug [...] Polymyxin-class Antibacterial Start: End: bacitracin-polymyxin b (POLYSPORIN) 500-06365 UNIT/GM ointment Apply topically 2 times daily. [...] take 1 capsule by mouth twice daily Gilbert 3 1000 MG CAPS Take 1,000 mg by mouth 2 times daily 0 Active End: 05-12-2021 take 1 capsule by mouth once daily Gilbert-3 Fatty Acids (FISH OIL OMEGA-3) 1000 MG CAPS Take 1,000 mg by mouth daily 0 05/12/2021 Discontinued docusate sodium 50 mg / sennosides, chcf 8.6 mg oral tablet (2 sources) Start: [...] Comment on above: Take 1 tablet by mana th every afternoon. 2 ml fentaNYL 0.05 [...] Status: Ordered take 2 tablets by [facility] twice daily furosemide (LASIX) 20 mg [...] 2019 12:00am take 1 tablet by amna every twenty-four hours Glimepiride 4 MG 1 [...] 12:00am Start: 09-02-2022 take 2 tablets by [facility] once daily Cytomel 5 mcg Tab 10 mcg = 2 tab(s), Oral, Daily, Refills(s) 0 Start Date: 09/02/22 Status: Ordered take 2 tablets by [facility] once daily liothyronine (Cytomel) 5 MCG tablet Take 2 tablets by mouth Daily Active take 1 tablet by [facility] every twenty-four hours Liothyronine Sodium 5 MCG [...] sources) Polyene Antifungal Start: 06-28-2022 nystatin (MYCOSTATIN) 896418 UNIT/GM powder Apply 3 times daily. 60 g 10 06/28/2022 Active nystatin (MYCOST ATIN) 381594 UNIT/GM powder Apply topically 2 times daily as needed 0 Active Kfbqz-9t-Xpk-Epa-Fish Oil (Gilbert-3 Fish Oil) 300-1,000 mg Capsule (4 sources) Start: 04-25-2019 Rhzsg-3q-Ygb-Epa-Fish Oil (Gilbert-3 Fish Oil) 300-1,000 mg Capsule Active 2 [...] on above: Take 2 tablets by [facility] every 6 hours as needed for [...] (8 sources) Corticosteroid, beta2-Adrenergic Agonist Start: 08-21-20 17 BREO ELLIPTA 100-25 mcg/dose inhaler Inhale 1 [...] by mouth 4 times daily 0 Active Ifcge-6-PNN-EPA-Fish Oil 1,000 mg (120 mg-180 mg) cap (8 sources) take 1 capsule by mouth twice daily Dvpjt-8-OEG-EPA-Fish Oil 1,000 mg (120 mg-180 mg) cap [...] Comment on above: TAKE 1 TABLET BY [facility] THREE TIMES A DAY DO NOT [...] sources) Long-term current use of anticoagulant; 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: [watermaster (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] Onset: 09-09-2022 Episodic Other aftercare (1 source) watermaster (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; 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: [FDC CURRNT USE ANTICOAGULANTS] Onset: 11-03-2022 Episodic Other aftercare (1 source) watermaster (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 oral hypoglycemic drugs; 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: [SENIOR DENTIST USE ORAL HYPOGLYCEMIC DX] Onset: 11-03-2022 Episodic Other aftercare (1 source) Other longterm (current) drug therapy; 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: [OTH FDC CURRENT DRUG THERAPY] Onset: 11-03-2022 Episodic Other [...] caused by tuberculosis or sexually transmitted disease) (4 sources) Dilated cardiomyopathy; 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: [Cardiomyopathy in diseases classified elsewhere] Onset: [...] disorder; 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: [Inflammation] 12-11-2023 Unclassified (2 sources) Other persistent atrial fibrillation; 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: [Other persistent atrial fibrillation] Onset: 07-02-2024 Unclassified (2 sources) Longstanding persistent atrial fibrillation; [...] Onset: 08-13-2022 Episodic Other aftercare (1 source) prison (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 aspirin; 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: [FDC CURRENT USE OF ASPIRIN] Onset: 08-25-2022 Episodic [...] Value Interpretation Reference Range Facility Office Visiton 07-02-2024 Follow-up visit [id number] Harman Mcleod Berna 1940 Date Provider Department Center 07/02/2024 Marie-YANG KERN CARD [facility] Family History Problem Relation Age of Onset Stroke Mother Coronary artery disease Father Heart attack Father Family Status - Relation Status Age at Mother Father Level of Service:04417 [place] OFFICE/OUTPATIENT NEW MODERATE MDM 45 MINUTES Normal [facility] Orders Onlyon 07-02-2024 Orders Only [id number] Harman Mcleod Berna 1940 Date Provider Department Center 07/02/2024 928-WENDY WILL CORI [facility] Family History Problem Relation Age of Onset Stroke Mother Coronary artery disease Father Heart attack Father Family Status - Relation Status Age at Mother Father Normal [facility] Office Visiton 06-12-2024 Follow-up visit [id number] MychalSampson L 1940 Date Provider Department Center 06/12/2024 David-JOSE MARIA KEYES CORI [facility] Family History Problem Relation Age of Onset Stroke Mother Coronary artery disease Father Heart attack Father Family Status - Relation Status Age at Mother Father Level of Service:35641 [place] OFFICE/OUTPATIENT ESTABLISHED HIGH MDM 40 MIN Normal [facility] 36on 06-10-2024 36 Pt informed hoys office updated Normal [facility] 37on 05-27-2024 37 Increase Zocor/simvastatin to 40 mg daily- from 20 mg for better cholesterol control Have blood drawn in 2-3 months for liver function and lipid levels- you must be fasting to have drawn Normal [facility] Office Visiton 05-27-2024 Follow-up visit [id number] Lenin Mcleodvinod Coronel 1940 F Date Provider Department Center 05/27/2024 120-CHERYL FARIA COR[facility] Family History Problem Relation Age of Onset Stroke Mother Coronary artery disease Father Heart attack Father Family Status - Relation Status Age at Mother Father Level of Service:30508 [place] OFFICE/OUTPATIENT ESTABLISHED LOW MDM 20 MIN Normal [facility] US ankle/arm indiceson 04-09 US ankle/arm indices [facility] Main [place] [address] [place] [address] Ultrasound Report Signed Patient: Harman Mcleod MR#: [id number] : 1940 Acct:[id number] Age/Sex: 83 / F ADM Date: 04/09/24 Loc: UL Room: Type: REG CLI Attending Dr: Janell Mathews APRN Ordering Provider: [...] Christiano Gonzales MD04/09/2024 2:02 PM Dictation Location: [place] [address] Tech: Kaleigh Ortega Transcribed By: FRANCIA 04/09/24 1402 Dictated By: Christiano Gonzales MD 04/09/24 1401 Signed By: 04/09/24 1402 Normal [facility] US venous duplex LE BIon US venous duplex LE BI [facility] Main [address] [address] Ultrasound Report Signed Patient: Harman Mcleod MR#: [id number] : 1940 Acct:[id number] Age/Sex: 83 / F ADM Date: 04/09/24 Loc: UL Room: Type: REG CLI Attending Dr: Janell Mathews APRN Ordering Provider: [...] Christiano Gonzales MD04/09/2024 2:01 PM Dictation Location: [place] [address] Tech: Francesca Estrada Transcribed By: FRANCIA 04/09/24 1401 Dictated By: Christiano Gonzales MD 04/09/24 1359 Signed By: 04/09/24 1401 Normal [facility] Consultation Noteon 06-21-20 Consultation Note [id number] 0TIFF Normal [facility] CBC W Auto Differential pane l (Bld)on 06-20-2023 Basophils (Bld) [#/Vol] 0.03 10*3/uL Normal <0.11 [facility] Comment on above: Order Comment: Speci men Type: BLOOD SPECIMENOrdering Facility: [facility] Address: [address] [place] [address] Performed By: #### 5 7021-8 ####[facility] LABCLIA [id number] [place] [address] Basophils/100 WBC (Bld) 0.3 % Normal [facility] Comment on above: Order Comment: Speci men Type: BLOOD SPECIMENOrdering Facility: [facility] Address: [address] [place] [id number] Performed By: #### 5 7021-8 ####[facility] LABCLIA [id number] [place] [address] Differential cell count method Nom (Bld) Auto Normal [facility] Comment on above: Order Comment: Speci men Type: BLOOD SPECIMENOrdering Facility: [facility] Address: [address] [place] [address] Performed By: #### 5 7021-8 ####[facility] LABCLIA [id number] [place] [address] Eosinophils (Bld) [#/Vol] 10*3/uL Normal <0.46 [facility] Comment on above: Order Comment: Speci men Type: BLOOD SPECIMENOrdering Facility: [facility] Address: [address] [place] [address] Performed By: #### 5 7021-8 ####[facility] LABCLIA [id number] [place] [address] Eosinophils/100 WBC (Bld) 0.2 % Normal [facility] Comment on above: Order Comment: Speci men Type: BLOOD SPECIMENOrdering Facility: [facility] Address: [address] [place] [address] Performed By: #### 5 7021-8 ####[facility] LABCLIA [id number] [place] [address] Erythrocyte distribution width (RBC) [Ratio] 14.4 % Normal 11.5-15.0 [facility] Comment on above: Order Comment: Speci men Type: BLOOD SPECIMENOrdering Facility: [facility] Address: [address] [place] [address] Performed By: #### 5 7021-8 ####[facility] LABCLIA [id number] [place] [address] Hematocrit (Bld) [Volume fraction] 34.9 % Low 36.0-46.0 [facility] Comment on above: Order Comment: Speci men Type: BLOOD SPECIMENOrdering Facility: [facility] Address: [address] [place] [address] Performed By: #### 5 7021-8 ####[facility] LABCLIA [id number] [place] [address] Hemoglobin (Bld) [Mass/Vol] 10.9 g/dL Low 11.5-15.5 [facility] Comment on above: Order Comment: Speci men Type: BLOOD SPECIMENOrdering Facility: [facility] Address: [address] [place] [address] Performed By: #### 5 7021-8 ####[facility] LABCLIA [id number] [place] [address] Immature granulocytes (Bld) [#/Vol] 0.11 10*3/uL High <0.10 [facility] Comment on above: Order Comment: Speci men Type: BLOOD SPECIMENOrdering Facility: [facility] Address: [address] [place] [address] Performed By: #### 5 7021-8 ####[facility] LABCLIA [id number] [place] [address] Immature granulocytes/100 WBC (Bld) 1.1 % Normal [facility] Comment on above: Order Comment: Speci men Type: BLOOD SPECIMENOrdering Facility: [facility] Address: [address] [place] [address] Performed By: #### 5 7021-8 ####[facility] LABCLIA [id number] [place] [address] Lymphocytes (Bld) [#/Vol] 1.97 10*3/uL Normal 1.00-4.00 [facility] Comment on above: Order Comment: Speci men Type: BLOOD SPECIMENOrdering Facility: [facility] Address: [address] [place] [address] Performed By: #### 5 7021-8 ####[facility] LABCLIA [id number] [place] [address] Lymphocytes/100 WBC (Bld) 19.3 % Normal [facility] Comment on above: Order Comment: Speci men Type: BLOOD SPECIMENOrdering Facility: [facility] Address: [address] [place] [address] Performed By: #### 5 7021-8 ####[facility] LABCLIA [id number] [place] [address] MCH (RBC) [Entitic mass] 29.9 pg Normal 26.0-34.0 [facility] Comment on above: Order Comment: Speci men Type: BLOOD SPECIMENOrdering Facility: [facility] Address: [address] [place] [address] Performed By: #### 5 7021-8 ####[facility] LABCLIA [id number] [place] [address] MCHC (RBC) [Mass/Vol] 31.2 g/dL Normal 30.5-36.0 [facility] Comment on above: Order Comment: Speci men Type: BLOOD SPECIMENOrdering Facility: [facility] Address: [address] [place] [address] Performed By: #### 5 7021-8 ####[facility] LABCLIA [id number] [place] [address] MCV (RBC) [Entitic vol] 95.6 fL Normal 80.0-100.0 [facility] Comment on above: Order Comment: Speci men Type: BLOOD SPECIMENOrdering Facility: [facility] Address: [address] [place] [address] Performed By: #### 5 7021-8 ####[facility] LABCLIA [id number] [place] [address] Monocytes (Bld) [#/Vol] 0.49 10*3/uL Normal <0.87 [facility] Comment on above: Order Comment: Speci men Type: BLOOD SPECIMENOrdering Facility: [facility] Address: [address] [place] [address] Performed By: #### 5 7021-8 ####[facility] LABCLIA [id number] [place] [address] Monocytes/100 WBC (Bld) 4.8 % Normal [facility] Comment on above: Order Comment: Speci men Type: BLOOD SPECIMENOrdering Facility: [facility] Address: [address] [place] [address] Performed By: #### 5 7021-8 ####[facility] LABCLIA [id number] [place] [address] Neutrophils (Bld) [#/Vol] 7.59 10*3/uL High 1.45-7.50 [facility] Comment on above: Order Comment: Speci men Type: BLOOD SPECIMENOrdering Facility: [facility] Address: [address] [place] [address] Performed By: #### 5 7021-8 ####[facility] LABIA [id number] [place] [address] Neutrophils/100 WBC (Bld) 74.3 % Normal [facility] Comment on above: Order Comment: Speci men Type: BLOOD SPECIMENOrdering Facility: [facility] Address: [address] [place] [address] Performed By: #### 5 7021-8 ####[facility] LABCLIA [id number] [place] [address] Nucleated RBC (Bld) [#/Vol] 10*3/uL Normal <0.01 [facility] Comment on above: Order Comment: Speci men Type: BLOOD SPECIMENOrdering Facility: [facility] Address: [address] [place] [address] Performed By: #### 5 7021-8 ####[facility] LABIA [id number] [place] [address] Nucleated RBC/100 WBC (Bld) [Ratio] 0.0 /[address] [facility] Comment on above: Order Comment: Speci men Type: BLOOD SPECIMENOrdering Facility: [facility] Address: [address] [place] [address] Performed By: #### 5 7021-8 ####[facility] LABCLIA [id number] [place] [address] Platelet mean volume (Bld) [Entitic vol] 9.3 fL Normal 9.0-12.7 [facility] Comment on above: Order Comment: Speci men Type: BLOOD SPECIMENOrdering Facility: [facility] Address: [address] [place] [address] Performed By: #### 5 7021-8 ####[facility] LABCLIA [id number] [place] [address] Platelets (Bld) [#/Vol] 275 10*3/uL Normal 150-400 [facility] Comment on above: Order Comment: Speci men Type: BLOOD SPECIMENOrdering Facility: [facility] Address: [address] [place] [address] Performed By: #### 5 7021-8 ####[facility] LABCLIA [id number] [place] [address] RBC (Bld) [#/Vol] 3.65 10*6/uL Low 3.90-5.20 [facility] Comment on above: Order Comment: Speci men Type: BLOOD SPECIMENOrdering Facility: [facility] Address: [address] [place] [address] Performed By: #### 5 7021-8 ####[facility] LABCLIA [id number] [place] [address] WBC (Bld) [#/Vol] 10.21 10*3/uL Normal 3.70-11.00 [facility] Comment on above: Order Comment: Speci men Type: BLOOD SPECIMENOrdering Facility: [facility] Address: [address] [place] [address] Performed By: #### 5 7021-8 ####[facility] LABIA [id number] [place] [address] CNOVSPon 06-20-2023 CNOVSP Visit (SP) Office (HEMASA) HARMAN MCLEOD ([id number]) 1940 F Date Time Provider Department 06/20/23 2:30 PM WINN[facility] During your visit today, we recorded the following information about you: Temperature Pulse Respiration Blood pressure 97.4 degrees 72/minute 16/minute 138/55 Weight Height 84.6 kg 1.549 m Winnie Guzmán PA-C 06/20/2023 3:58 PM Signed PATIENT NAME: Harman Mcleod CLINIC NO.: [id number] ATTENDING PHYSICIAN: Wallace Stone MD DATE OF [...] Negative LVI, 2 SNL negative, ER and TX >95% positive, Her2 IHC 1+ Treatment History: [...] 06/20/2023 1.77 (more content not included)... Normal [facility] Comprehensive metabolic 2000 panelon 06-20-2023 Albumin [Mass/Vol] 4.0 g/dL Normal 3.9-4.9 [facility] Comment on above: Order Comment: Speci men Type: BLOOD SPECIMENOrdering Facility: [facility] Address: [address] [place] [address] Performed By: #### 2 4323-8 ####[facility] LABCLIA [id number] [place] [address] ALP [Catalytic activity/Vol] 72 U/L Normal 34-123 [facility] Comment on above: Order Comment: Speci men Type: BLOOD SPECIMENOrdering Facility: [facility] Address: [address] [place] [address] Performed By: #### 2 4323-8 ####[facility] LABCLIA [id number] [place] [address] ALT [Catalytic activity/Vol] 17 U/L Normal 7-38 [facility] Comment on above: Order Comment: Speci men Type: BLOOD SPECIMENOrdering Facility: [facility] Address: [address] [place] [address] Performed By: #### 2 4323-8 ####[facility] LABCLIA [id number] [place] [address] Anion gap [Moles/Vol] 9 mmol/L Normal 9-18 [facility] Comment on above: Order Comment: Speci men Type: BLOOD SPECIMENOrdering Facility: [facility] Address: [address] [place] [address] Performed By: #### 2 4323-8 ####[facility] LABCLIA [id number] [place] [address] AST [Catalytic activity/Vol] 11 U/L Low 13-35 [facility] Comment on above: Order Comment: Speci men Type: BLOOD SPECIMENOrdering Facility: [facility] Address: [address] [place] [address] Performed By: #### 2 4323-8 ####[facility] LABCLIA [id number] [place] [address] Bilirubin [Mass/Vol] 0.2 mg/dL Normal 0.2-1.3 [facility] Comment on above: Order Comment: Speci men Type: BLOOD SPECIMENOrdering Facility: [facility] Address: [address] [place] [address] Performed By: #### 2 4323-8 ####[facility] LABCLIA [id number] [place] [address] Calcium [Mass/Vol] 10.1 mg/dL Normal 8.5-10.2 [facility] Comment on above: Order Comment: Speci men Type: BLOOD SPECIMENOrdering Facility: [facility] Address: [address] [place] [address] Performed By: #### 2 4323-8 ####[facility] LABCLIA [id number] [place] [address] Chloride [Moles/Vol] 103 mmol/L Normal 97-105 [facility] Comment on above: Order Comment: Speci men Type: BLOOD SPECIMENOrdering Facility: [facility] Address: [address] [place] [address] Performed By: #### 2 4323-8 ####[facility] LABCLIA [id number] [place] [address] CO2 [Moles/Vol] 30 mmol/L Normal 22-30 [facility] Comment on above: Order Comment: Speci men Type: BLOOD SPECIMENOrdering Facility: [facility] Address: [address] [place] [address] Performed By: #### 2 4323-8 ####[facility] LABCLIA [id number] [place] [address] Creatinine [Mass/Vol] 1.77 mg/dL High 0.58-0.96 [facility] Comment on above: Order Comment: Speci men Type: BLOOD SPECIMENOrdering Facility: [facility] Address: [address] [place] [address] Performed By: #### 2 4323-8 ####[facility] LABCLIA [id number] [place] [address] Creatinine and Glomerular filtration rate.predicted panel (S/P/Bld) 29 mL/min/1.73m??? Low >=60 [facility] Comment on above: Order Comment: Speci men Type: BLOOD SPECIMENOrdering Facility: [facility] Address: [address] [place] [address] Result Comment: Ramila mated Glomerular Filtration Rate [...] 2 4323-8 ####[facility] LABCLIA [id number] [place] [address] Glucose [Mass/Vol] 273 mg/dL High 74-99 [facility] Comment on above: Order Comment: Speci men Type: BLOOD SPECIMENOrdering Facility: [facility] Address: [address] [place] [address] Result Comment: The [place] Diabetes Association (ADA) provides guidance for cutoff [...] Standards of Medical Care in Diabetes 2016, [place] Diabetes Association. Diabetes Care. 2016.39(Suppl 1). Performed By: #### 2 4323-8 ####[facility] LABCLIA [id number] [place] [address] Potassium [Moles/Vol] 5.1 mmol/L Normal 3.7-5.1 [facility] Comment on above: Order Comment: Speci men Type: BLOOD SPECIMENOrdering Facility: [facility] Address: [address] [place] [address] Performed By: #### 2 4323-8 ####[facility] LABCLIA [id number] [place] [address] Protein [Mass/Vol] 6.4 g/dL Normal 6.3-8.0 [facility] Comment on above: Order Comment: Speci men Type: BLOOD SPECIMENOrdering Facility: [facility] Address: [address] [place] [address] Performed By: #### 2 4323-8 ####[facility] LABCLIA [id number] [place] [address] Sodium [Moles/Vol] 142 mmol/L Normal 136-144 [facility] Comment on above: Order Comment: Speci men Type: BLOOD SPECIMENOrdering Facility: [facility] Address: [address] [place] [address] Performed By: #### 2 4323-8 ####[facility] LABCLIA [id number] [place] [address] Urea nitrogen [Mass/Vol] 40 mg/dL High 7-21 [facility] Comment on above: Order Comment: Speci men Type: BLOOD SPECIMENOrdering Facility: [facility] Address: [address] [place] [address] [place] [address] Performed By: #### 2 4323-8 ####[facility] LABCLIA [id number] [place] [address] Vaginitis DNA Probeon 2022 Manjula Negative Normal NEG [facility] Comment on above: Result Comment: for Manjula sp. Method of testing is a DNA probe intended for detection and identification of Manjula species, Gardnerella vaginalis, and Trichomonas vaginalis nucleic acid in vaginal fluid specimens from patients with symptoms of vaginitis/vaginosis. Performed By: #### V AGP #### [facility] [employer] [address] [place] [address] [employer] Installer: Fidel Hylton MD Gardnerella Negative Normal NEG [facility] Comment on above: Result Comment: for Gardnerella vaginalis Performed By: #### V AGP #### [address] [address] [employer] Installer: Fidel Hylton MD Trichomonas Negative Normal NEG [facility] Comment on above: Result Comment: for Trichomonas Vaginalis Performed By: #### V AGP #### [address] [address] [employer] Installer: Fidel Hylton MD Source .VAGINAL SWAB Normal [facility] Comment on above: Performed By: #### V AGP #### [facility] [employer] [address] [place] [address] [employer] Installer: Fidel Hylton MD OPERATIVE REPORTon 3 OPERATIVE REPORT [address] [address] OPERATIVE REPORT PATIENT NAME: HARMAN MCLEOD : 1940 MED REC NO: [id number] ROOM: ACCOUNT NO: [id number] ADMIT DATE: 03/06/2023 PROVIDER: Emma Garza MD DATE OF PROCEDURE: 03/06/2023 PREOPERATIVE DIAGNOSIS: Recurrent vaginal dysplasia. POSTOPERATIVE DIAGNOSIS: Recurrent vaginal dysplasia. OPERATION PERFORMED: Examination under anesthesia, carbon dioxide laser vaporization of vaginal dysplasia. COMPLICATIONS: None. BLOOD LOSS: Minimal. SURGEON: Emma Garza MD OCCUPATIONAL MEDICINE SPECIALIST: Mauri (resident). DISPOSITION: The patient to recovery room stable. SPECIMENS: No specimen sent to Pathology. 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 EMMA GARZA MD [id number] Doc#: [id number] CC: Normal [facility] Consultation Noteon 02-20-20 23 Consultation Note [id number]#1.0 0CD:127 Normal [facility] CBC W Auto Differential pane l (Bld)on 02-14-2023 Basophils (Bld) [#/Vol] 0.04 10*3/uL Normal <0.11 [facility] Comment on above: Order Comment: Speci men Type: BLOOD SPECIMENOrdering Facility: [facility] Address: [address] [place] [address] Performed By: #### 5 7021-8 ####[facility] LABCLIA [id number] [place] [address] Basophils/100 WBC (Bld) 0.4 % Normal [facility] Comment on above: Order Comment: Speci men Type: BLOOD SPECIMENOrdering Facility: [facility] Address: [address] [place] [address] Performed By: #### 5 7021-8 ####[facility] LABCLIA [id number] [place] [address] Differential cell count method Nom (Bld) Auto Normal [facility] Comment on above: Order Comment: Speci men Type: BLOOD SPECIMENOrdering Facility: [facility] Address: [address] [place] [address] Performed By: #### 5 7021-8 ####[facility] LABCLIA [id number] [place] [address] Eosinophils (Bld) [#/Vol] 0.20 10*3/uL Normal <0.46 [facility] Comment on above: Order Comment: Speci men Type: BLOOD SPECIMENOrdering Facility: [facility] Address: [address] [place] [address] Performed By: #### 5 7021-8 ####[facility] LABCLIA [id number] [place] [address] Eosinophils/100 WBC (Bld) 1.9 % Normal [facility] Comment on above: Order Comment: Speci men Type: BLOOD SPECIMENOrdering Facility: [facility] Address: [address] [place] [address] Performed By: #### 5 7021-8 ####[facility] LABCLIA [id number] [place] [address] Erythrocyte distribution width (RBC) [Ratio] 14.1 % Normal 11.5-15.0 [facility] Comment on above: Order Comment: Speci men Type: BLOOD SPECIMENOrdering Facility: [facility] Address: [address] [place] [address] Performed By: #### 5 7021-8 ####[facility] LABCLIA [id number] [place] [address] Hematocrit (Bld) [Volume fraction] 38.4 % Normal 36.0-46.0 [facility] Comment on above: Order Comment: Speci men Type: BLOOD SPECIMENOrdering Facility: [facility] Address: [address] [place] [address] Performed By: #### 5 7021-8 ####[facility] LABCLIA [id number] [place] [address] Hemoglobin (Bld) [Mass/Vol] 12.2 g/dL Normal 11.5-15.5 [facility] Comment on above: Order Comment: Speci men Type: BLOOD SPECIMENOrdering Facility: [facility] Address: [address] [place] [address] Performed By: #### 5 7021-8 ####[facility] LABCLIA [id number] [place] [address] Immature granulocytes (Bld) [#/Vol] 0.06 10*3/uL Normal <0.10 [facility] Comment on above: Order Comment: Speci men Type: BLOOD SPECIMENOrdering Facility: [facility] Address: [address] [place] [address] Performed By: #### 5 7021-8 ####[facility] LABCLIA [id number] [place] [address] Immature granulocytes/100 WBC (Bld) 0.6 % Normal [facility] Comment on above: Order Comment: Speci men Type: BLOOD SPECIMENOrdering Facility: [facility] Address: [address] [place] [address] Performed By: #### 5 7021-8 ####[facility] LABCLIA [id number] [place] [address] Lymphocytes (Bld) [#/Vol] 2.56 10*3/uL Normal 1.00-4.00 [facility] Comment on above: Order Comment: Speci men Type: BLOOD SPECIMENOrdering Facility: [facility] Address: [address] [place] [address] Performed By: #### 5 7021-8 ####[facility] LABCLIA [id number] [place] [address] Lymphocytes/100 WBC (Bld) 24.6 % Normal [facility] Comment on above: Order Comment: Speci men Type: BLOOD SPECIMENOrdering Facility: [facility] Address: [address] [place] [address] Performed By: #### 5 7021-8 ####[facility] LABIA [id number] [place] [address] MCH (RBC) [Entitic mass] 30.0 pg Normal 26.0-34.0 [facility] Comment on above: Order Comment: Speci men Type: BLOOD SPECIMENOrdering Facility: [facility] Address: [address] [place] [address] Performed By: #### 5 7021-8 ####[facility] LABIA [id number] [place] [address] MCHC (RBC) [Mass/Vol] 31.8 g/dL Normal 30.5-36.0 [facility] Comment on above: Order Comment: Speci men Type: BLOOD SPECIMENOrdering Facility: [facility] Address: [address] [place] [address] Performed By: #### 5 7021-8 ####[facility] LABIA [id number] [place] [address] MCV (RBC) [Entitic vol] 94.3 fL Normal 80.0-100.0 [facility] Comment on above: Order Comment: Speci men Type: BLOOD SPECIMENOrdering Facility: [facility] Address: [address] [address] Performed By: #### 5 7021-8 ####[facility] LABCLIA [id number] [place] [address] Monocytes (Bld) [#/Vol] 0.86 10*3/uL Normal <0.87 [facility] Comment on above: Order Comment: Speci men Type: BLOOD SPECIMENOrdering Facility: [facility] Address: [address] [address] Performed By: #### 5 7021-8 ####[facility] LABCLIA [id number] [place] [address] Monocytes/100 WBC (Bld) 8.3 % Normal [facility] Comment on above: Order Comment: Speci men Type: BLOOD SPECIMENOrdering Facility: [facility] Address: [address] [address] Performed By: #### 5 7021-8 ####[facility] LABCLIA [id number] [place] [address] Neutrophils (Bld) [#/Vol] 6.69 10*3/uL Normal 1.45-7.50 [facility] Comment on above: Order Comment: Speci men Type: BLOOD SPECIMENOrdering Facility: [facility] Address: [address] [address] Performed By: #### 5 7021-8 ####[facility] LABCLIA [id number] [place] [address] Neutrophils/100 WBC (Bld) 64.2 % Normal [facility] Comment on above: Order Comment: Speci men Type: BLOOD SPECIMENOrdering Facility: [facility] Address: [address] [address] Performed By: #### 5 7021-8 ####[facility] LABCLIA [id number] [place] [address] Nucleated RBC (Bld) [#/Vol] 10*3/uL Normal <0.01 [facility] Comment on above: Order Comment: Speci men Type: BLOOD SPECIMENOrdering Facility: [facility] Address: [address] [place] [address] Performed By: #### 5 7021-8 ####[facility] LABCLIA [id number] [place] [address] Nucleated RBC/100 WBC (Bld) [Ratio] 0.0 /[address] [facility] Comment on above: Order Comment: Speci men Type: BLOOD SPECIMENOrdering Facility: [facility] Address: [address] [place] [address] Performed By: #### 5 7021-8 ####[facility] LABCLIA [id number] [place] [address] Platelet mean volume (Bld) [Entitic vol] 9.6 fL Normal 9.0-12.7 [facility] Comment on above: Order Comment: Speci men Type: BLOOD SPECIMENOrdering Facility: [facility] Address: [address] [place] [address] Performed By: #### 5 7021-8 ####[facility] LABCLIA [id number] [place] [address] Platelets (Bld) [#/Vol] 271 10*3/uL Normal 150-400 [facility] Comment on above: Order Comment: Speci men Type: BLOOD SPECIMENOrdering Facility: [facility] Address: [address] [place] [address] Performed By: #### 5 7021-8 ####[facility] LABCLIA [id number] [place] [address] RBC (Bld) [#/Vol] 4.07 10*6/uL Normal 3.90-5.20 [facility] Comment on above: Order Comment: Speci men Type: BLOOD SPECIMENOrdering Facility: [facility] Address: [place] [address] Performed By: #### 5 7021-8 ####[facility] LABIA [id number] [place] [address] WBC (Bld) [#/Vol] 10.41 10*3/uL Normal 3.70-11.00 [facility] Comment on above: Order Comment: Speci men Type: BLOOD SPECIMENOrdering Facility: [facility] Address: [place] [address] Performed By: #### 5 7021-8 ####[facility] LABCLIA [id number] [place] [address] CNOVSPon 02-14-2023 CNOVSP Visit (SP) Office ([facility]) HARMAN MCLEOD ([id number]) 1940 F Date Time Provider Department 02/14/23 10:30 AM WALLACE STONE During your visit today, we recorded the following information about you: Temperature Pulse Respiration Blood pressure 97.4 degrees 102/minute 16/minute 151/90 Weight Height 84.5 kg 1.549 m Wallace Stone MD 02/14/2023 10:49 AM Signed PATIENT NAME: Harman Mcleod CLINIC NO.: [id number] ATTENDING PHYSICIAN: Wallace Stone MD DATE OF [...] Negative LVI, 2 SNL negative, ER and TX >95% positive, Her2 IHC 1+ Treatment History: [...] : Deferre (more content not included)... [facility] HARMAN MCLEOD ([id number]) 1940 F Date Time Provider Department 02/14/23 WALLACE STONE During your visit today, we recorded the following information about you: Angelica Bhakta Sec 02/14/2023 11:00 AM Signed Please ref to [facility] for Consult dx eczema They will call the patient to schedule after review of records. Janeth, Please fax records Dudley, Please check on this appt. Kira L Maikel [facility] 02/14/2023 1:14 PM Signed Records faxed to [facility]. Adriana Pereira Pss 02/22/2023 8:35 AM Signed Called [facility] office spoke with Coco. She states they have received this referral and they have called and left patient 2 messages to call their office back to schedule. As of now they are waiting for patient to call their office back. Adriana Pereira [facility] Adriana Pereira [facility] 03/01/2023 3:14 PM Signed Called [facility] spoke with Coco. Patient is scheduled to [...] daily at bedtime. Cut in half - Mmouo-3-SON-EPA-Fish Oil 1,000 mg (120 mg-180 mg) cap Take 2 g by mouth twice daily. - isosorbide mononitrate ER (IMDUR) 60 mg 24 hr tablet Take 60 mg by mouth twice daily. 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 Comprehensive metabolic 2000 panelon 02-14-2023 Albumin [Mass/Vol] 4.1 g/dL Normal 3.9-4.9 [facility] Comment on above: Order Comment: Speci men Type: BLOOD SPECIMENOrdering Facility: [facility] Address: [address] [address] Performed By: #### 2 4323-8 ####[facility] LABCLIA [id number] [place] [address] ALP [Catalytic activity/Vol] 106 U/L Normal 34-123 [facility] Comment on above: Order Comment: Speci men Type: BLOOD SPECIMENOrdering Facility: [facility] Address: [address] [address] Performed By: #### 2 4323-8 ####[facility] LABCLIA [id number] [place] [address] ALT [Catalytic activity/Vol] 14 U/L Normal 7-38 [facility] Comment on above: Order Comment: Speci men Type: BLOOD SPECIMENOrdering Facility: [facility] Address: [address] [address] Performed By: #### 2 4323-8 ####[facility] LABCLIA [id number] [place] [address] Anion gap [Moles/Vol] 11 mmol/L Normal 9-18 [facility] Comment on above: Order Comment: Speci men Type: BLOOD SPECIMENOrdering Facility: [facility] Address: [address] [address] Performed By: #### 2 4323-8 ####[facility] LABCLIA [id number] [place] [address] AST [Catalytic activity/Vol] 11 U/L Low 13-35 [facility] Comment on above: Order Comment: Speci men Type: BLOOD SPECIMENOrdering Facility: [facility] Address: [address] [address] Performed By: #### 2 4323-8 ####[facility] LABCLIA [id number] [place] [address] Bilirubin [Mass/Vol] 0.3 mg/dL Normal 0.2-1.3 [facility] Comment on above: Order Comment: Speci men Type: BLOOD SPECIMENOrdering Facility: [facility] Address: [address] [address] Performed By: #### 2 4323-8 ####[facility] LABCLIA [id number] [place] [address] Calcium [Mass/Vol] 10.2 mg/dL Normal 8.5-10.2 [facility] Comment on above: Order Comment: Speci men Type: BLOOD SPECIMENOrdering Facility: [facility] Address: [address] [place] [address] Performed By: #### 2 4323-8 ####[facility] LABCLIA [id number] [place] [address] Chloride [Moles/Vol] 98 mmol/L Normal 97-105 [facility] Comment on above: Order Comment: Speci men Type: BLOOD SPECIMENOrdering Facility: [facility] Address: [address] [place] [address] Performed By: #### 2 4323-8 ####[facility] LABCLIA [id number] [place] [address] CO2 [Moles/Vol] 31 mmol/L High 22-30 [facility] Comment on above: Order Comment: Speci men Type: BLOOD SPECIMENOrdering Facility: [facility] Address: [address] [place] [address] Performed By: #### 2 4323-8 ####[facility] LABCLIA [id number] [place] [address] Creatinine [Mass/Vol] 1.25 mg/dL High 0.58-0.96 [facility] Comment on above: Order Comment: Speci men Type: BLOOD SPECIMENOrdering Facility: [facility] Address: [address] [place] [address] Performed By: #### 2 4323-8 ####[facility] LABCLIA [id number] [place] [address] ESTIMATED GLOMERULAR FILTRATION RATE 44 mL/min/1.73m??? Low >=60 [facility] Comment on above: Order Comment: Speci men Type: BLOOD SPECIMENOrdering Facility: [facility] Address: [address] [place] [address] Result Comment: Ramila mated Glomerular Filtration Rate [...] 2 4323-8 ####[facility] LABCLIA [id number] [place] [address] Glucose [Mass/Vol] 285 mg/dL High 74-99 [facility] Comment on above: Order Comment: Speci men Type: BLOOD SPECIMENOrdering Facility: [facility] Address: [address] [place] [address] Result Comment: The [place] Diabetes Association (ADA) provides guidance for cutoff [...] Standards of Medical Care in Diabetes 2016, [place] [employer]. Diabetes Care. 2016.39(Suppl 1). Performed By: #### 2 4323-8 ####[facility] LABCLIA [id number] [place] [address] Potassium [Moles/Vol] 3.7 mmol/L Normal 3.7-5.1 [facility] Comment on above: Order Comment: Speci men Type: BLOOD SPECIMENOrdering Facility: [facility] Address: [address] [place] [address] Performed By: #### 2 4323-8 ####[facility] LABCLIA [id number] [place] [address] Protein [Mass/Vol] 7.3 g/dL Normal 6.3-8.0 [facility] Comment on above: Order Comment: Speci men Type: BLOOD SPECIMENOrdering Facility: [facility] Address: [address] [place] [address] Performed By: #### 2 4323-8 ####[facility] LABCLIA [id number] [place] [address] Sodium [Moles/Vol] 140 mmol/L Normal 136-144 [facility] Comment on above: Order Comment: Speci men Type: BLOOD SPECIMENOrdering Facility: [facility] Address: [address] [id number] Performed By: #### 2 4323-8 ####[facility] LABCLIA [id number] [place] [address] Urea nitrogen [Mass/Vol] 33 mg/dL High 7-21 [facility] Comment on above: Order Comment: Speci men Type: BLOOD SPECIMENOrdering Facility: [facility] Address: [address] [place] [place] [address] Performed By: #### 2 4323-8 ####[facility] LABCLIA [id number] [place] [address] Consultation Noteon 02-15-20 23 Consultation Note [id number] 0CD:127 Normal [facility] Comment on above: Other Comment: TRACEY RUTH CRR CULTURE URINEon 01-19-2023 CULTURE URINE Culture Observations : VERY LIGHT GROWTH OF MIXED GENITAL SAGE. NO POTENTIAL PATHOGENS SEEN. Normal [facility] Comment on above: Performed By: #### U RCX ####[facility] [address] [address]Dr. Omid Bowden UA RANDOM W/MICROSCOPICon BACTERIA TRACE Abnormal NONE SEEN [facility] Comment on above: Performed By: #### H GB #### [facility] [address] [address] [address] Omid Bowden Bilirubin Ql (U) Negative Normal NEGATIVE [facility] Comment on above: Performed By: #### H GB #### [facility] [address] [address] [address] Omid Bowden CAST NONE SEEN Normal NONE SEEN [facility] Comment on above: Performed By: #### H GB #### [facility] [address] [address] [address] Omid Bowden Clarity (U) CLEAR Normal CLEAR [facility] Comment on above: Performed By: #### H GB #### [facility] [address] [place] [address] Dr. Omid Bowden Color (U) LT. YELLOW Normal YELLOW [facility] Comment on above: Performed By: #### H GB #### [facility] [address] [address] [address] Omid Bowden Crystals LM Nom (Urine sed) NONE SEEN Normal NONE SEEN [facility] Comment on above: Performed By: #### H GB #### [facility] [address] [address] [address] Omid Bowden Epithelial cells LM Ql (Urine sed) RARE Normal NONE SEEN /RARE [facility] Comment on above: Performed By: #### H GB #### [facility] [address] [place] [address] Dr. Omid Bowden Glucose Ql (U) Negative Normal NEGATIVE [facility] Comment on above: Performed By: #### H GB #### [facility] [address] [place] [address] Dr. Omid Bowden Hemoglobin Ql (U) Negative Normal NEGATIVE The [facility] Comment on above: Performed By: #### H GB #### [facility] [address] [place] [address] Dr. Omid Bowden Ketones Ql (U) Negative Normal NEGATIVE [facility] Comment on above: Performed By: #### H GB #### [facility] [address] [address] [address] Omid Bowden LEUKOCYTES SMALL Abnormal NEGATIVE [facility] Comment on above: Performed By: #### H GB #### [facility] [address] [address] [address] Omid Bowden MUCOUS NONE SEEN Normal NONE SEEN [facility] Comment on above: Performed By: #### H GB #### [facility] [address] [place] [address] Dr. Omid Bowden Nitrite Ql (U) Negative Normal NEGATIVE [facility] Comment on above: Performed By: #### H GB #### [facility] [address] [address] [address] Omid Bowden pH (U) 6.0 [pH] Normal 5-9 [facility] Comment on above: Performed By: #### H GB #### [facility] [address] [address] [address] Omid Bowden RBC 0-2 Normal 0-2 [facility] Comment on above: Performed By: #### H GB #### [facility] [address] [address] [address] Omid Bowden SPEC GRAVITY <=1.005 Abnormal 1.005-<=1.0 25 [facility] Comment on above: Performed By: #### H GB #### [facility] [address] [place] [address] Dr. Omid Bowden UA PROTEIN Negative Normal NEGATIVE/ TRACE [facility] Comment on above: Performed By: #### H GB #### [facility] [address] [place] [address] Dr. Omid Bowden Urobilinogen Qn (U) 0.2 {Jose'U}/dL Normal 0.2 - 1. 0 [facility] Comment on above: Performed By: #### H GB #### [facility] [address] [place] [address] Dr. Omid Bowden WBC 0-2 Abnormal NONE SEEN [facility] Comment on above: Performed By: #### H GB #### [facility] [address] [place] [address] Dr. Omid Bowden Creatinine [Mass/volume] in Serum or PlasmaOrdered By: Christiano Gonzales on 11-29-2022 Creatinine [Mass/Vol] 1.37 mg/dL 0.60-1.20 [facility] - Chemistry and C hemistry - challengeOrdered By: Christiano Gonzales on 11-29-2022 GFR/1.73 sq M.predicted MDRD (S/P/Bld) [Vol rate/Area] 39.034 mL/min/{1.73_m2} [facility] No Panel InformationOrdered By: Christiano Gonzales on 11-29-2022 Pharmacy Creatinine Clearance (Chem 31.71 [facility] Urea nitrogen [Mass/volume] in Serum or PlasmaOrdered By: Christiano Janet on 11-29-2022 Urea nitrogen [Mass/Vol] 35 mg/dL 7 [facility] Surgical Pathologyon 023 Surgical Pathology (NOTE) [...] SURGICAL PATHOLOGY CONSULTATION Patient Name: HARMAN MCLEOD [facility] Rec: [id number] Path Number: [id number] [employer] [facility] ANATOMIC PATHOLOGY [address] [place] [id number] [facility] Comment on above: Performed By: #### P PPVS #### [facility] [employer] [address] [place], [place] [id number] [employer] Installer: Fidel Hylton MD Ambulatory Visit Summaryon 0 11-22-2022 Ambulatory Visit Summary HARMAN MCLEOD Berna :1940 Visit Date:11/22/2022 Ambulatory Visit Instructions Your [...] and diastolic (congestive) heart failure Atherosclerosis of [place] artery of extremity BMI 36.0-36.9,adult Brain stem [...] bleeding Stage 2 chronic kidney disease Normal [facility] General Surgery Office/Clini c Noteon [...] CHELSI CARDONA, DANIEL Jose Only if needed [address] [place] [address]- Additional Instructions: Problem List/Past Medical History Ongoing 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 Normal [facility] Comment on above: Result Comment: Elec tronically Signed By: CHELSI CARDONA, Iliana Alvarez\Date and Time Signed: 11/22/22 15:17 EDT Covid-19 PCR (CVDTB)on SARS-CoV-2 (COVID-19) RNA MARII+probe Ql (Unsp spec) Not detected Normal NOT DETECTED [facility] Comment on above: Result Comment: When diagnostic [...] for this test is supported by the Leadership Development Instructor of Health and Human Service's declaration that [...] used). Performed By: #### H GB #### [facility] [address] [place], [place] [address] Dr. Omid Bowden INFLUENZA A AND B AGon 11-16 INFLUANE SEE BELOW Normal [facility] Comment on above: Result Comment: Nega tive for Flu A protein angiten. Infection due to Flu A cannot be ruled out. Flu A angiten in the sample may be below the detection limit of the test. Performed By: #### I NFLUAB ####[facility] [address] [place], [place] [address]GcDr. Omid Bowden INFLUBNEGH SEE BELOW Normal [facility] Comment on above: Result Comment: Nega tive for Flu B protein antigen. Infection due to Flu B cannot be ruled out. Flu B antigen in the sample may be below the detection limit of the test. Performed By: #### I NFLUAB ####[facility] [address] [place], [place] [address]Mt. Omid Bowden INFLUENZA A AG Negative Normal NEGATIVE SEE COMMENT [facility] Comment on above: Performed By: #### I NFLUAB ####[facility] [address] [place], [place] [address]Ca. Omid Bowden INFLUENZA B AG Negative Normal NEGATIVE SEE COMMENT [facility] Comment on above: Performed By: #### I NFLUAB ####[facility] [address] [place], [place] [address]Li. Omid Bowden CNOVSPon 11-09-2022 CNOVSP Visit (SP) Office ([facility]) HARMAN MCLEOD ([id number]) 1940 F Date Time Provider Department 11/09/22 2:00 PM WALLACE STONE During your visit today, we recorded the following information about you: Temperature Pulse Respiration Blood pressure 97.1 degrees 66/minute 18/minute 142/72 Weight Height 84.7 kg 1.549 m Wallace Stone MD 11/09/2022 2:24 PM Signed PATIENT NAME: Harman Mcleod CLINIC NO.: [id number] ATTENDING PHYSICIAN: Wallace Stone MD DATE OF SERVICE: November 09, [address] Banks referring provider defined for this encounter. here is an update on a follow up visit on female Harman Mcleod at the clinic 11/09/2022 Diagnosis: T1b, N0, M0- R breast, Tumor 9 mm, Grade 2, Margins negative, Negative LVI, 2 SNL negative, ER and TX >95% positive, Her2 IHC 1+ Treatment History: [...] LABS: Gluc (more content not included)... Normal [facility] 11-09-2022 CNPN Telephone (NCCAP) HARMAN MCLEOD ([id number]) 1940 F Date Time Provider Department 11/09/22 KARAMLOU, WALLACE NCCAP During your visit today, we recorded the following information about you: Carlos Brooks 11/09/2022 2:45 PM Signed Vascular Consult [facility] Previous patient of Dr. Mendez 3 years or more. Janeth/Dudley: Can you please refer patient and follow up? Thanks! Carlos Pereira Pss 11/10/2022 8:46 AM Signed Janeth: Information ready for you. Adriana Pereira Pss Kira Ko [facility] 11/10/2022 9:38 AM Signed Records faxed. Adriana Pereira Pss 11/16/2022 8:42 AM Signed Called Vascular office spoke with Jessy. They have received this referral and have patient scheduled with Dr Gonzales on 11/23 @ 10:00. Adriana Pereira [facility] Allergies As of Date: 11/09/2022 Noted Allergy Reaction CEFDINIR 09/13/2022 14 - Other: See Comments 11 - Vomiting CIPROFLOXACIN 09/29/2017 14 - Other: See Comments Comments: tendon issues OXYCODONE-ACETAMINOPHE N 03/31/2013 5 - Intolerance 8 - GI Upset TRAMADOL 11/09/2022 1 - Mental Status Change Date Reviewed: 11/09/2022 Reviewed by: Jeaneth Perdomo - Fully Assessed Reason for Visit: Referral Information [[id number]] Cmt: Vascular Consult Prescriptions as of 11/16/2022 [...] daily at bedtime. Cut in half - Vyejf-6-RLB-EPA-Fish Oil 1,000 mg (120 mg-180 mg) cap Take 2 g by mouth twice daily. - isosorbide mononitrate ER (IMDUR) 60 mg 24 hr tablet Take 60 mg by mouth twice daily. 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 Encounter Status:Closed by CARLOS BROOKS on 11/16/22 [facility] Ambulatory Visit Summaryon 0 11-08-2022 Ambulatory Visit Summary HARMAN MCLEOD Berna :1940 Visit Date:11/08/2022 Ambulatory Visit Instructions Your [...] and diastolic (congestive) heart failure Atherosclerosis of [place] artery of extremity BMI 36.0-36.9,adult Brain stem [...] bleeding Stage 2 chronic kidney disease Normal [facility] General Surgery Office/Clini c Noteon 11-08-2022 [...] and diastolic (congestive) heart failure Atherosclerosis of [place] artery of extremity BMI 36.0-36.9,adult Brain stem [...] History Tran (more content not included)... Normal [facility] Comment on above: Result Comment: Elec [...] GAGNON MD Where: General Surgery Chelsi/Angelita Victor [facility] General Surgery Office/Clini c Noteon [...] and diastolic (congestive) heart failure Atherosclerosis of [place] artery of extremity BMI 36.0-36.9,adult Brain stem [...] Family Histor (more content not included)... Normal [facility] Comment on above: Result Comment: Elec tronically Signed By: CHELSI CARDONA, Iliana Ramirez\.br\Date and Time Signed: 11/04/22 14:35 EST US [...] by: MIGUELITO TELLEZ Date: 2022-11-02 17:17 Normal [facility] Pathology Noteon 10-26-2022 Pathology Note [id number]#1.0 0CD:127 Normal [facility] Ambulatory Visit Summaryon 0 10-25-2022 Ambulatory Visit Summary HARMAN MCLEOD Berna :1940 Visit Date:10/25/2022 Ambulatory Visit Instructions Your [...] Iliana Ramirez Where: General Surgery Chelsi/Angelita Victor [facility] General Surgery Office/Clini c Noteon 10-25-2022 [...] and diastolic (congestive) heart failure Atherosclerosis of [place] artery of extremity BMI 36.0-36.9,adult Brain stem [...] disease: Mo (more content not included)... Normal [facility] Comment on above: Result Comment: Elec tronically Signed By: CHELSI CARDONA, Iliana Alvarez\Date and Time Signed: 10/25/22 16:13 EST Operative Reporton Operative Report [id number] 0CD:127 Normal [facility] RAD - Ultrasound Reporton RAD - Ultrasound Report [id number]#1.0 0CD:127 Normal [facility] NM SENTNL NODEon 10-19-2022 NM SENTNL [...] by: KRISTIN JAQUEZ Date: 2022-10-19 10:41 Normal [facility] POINT OF CARE GLUCOSEon Glucose [Mass/Vol] 153 mg/dL Critically high 74-106 T [facility] Comment on above: Performed By: #### P OCGLUC #### [facility] [address] [place] [address] Dr. Omid Bowden RAD - MISCon 10-19-2022 RAD - MISC [id number]#1.0 0CD:127 Normal [facility] RAD - MISC [id number]#1.0 0CD:127 Normal [facility] RAD - Ultrasound Reporton RAD - Ultrasound Report [id number] 0CD:127 Normal [facility] RAD - Ultrasound Report [id number]#1.0 0CD:127 Normal [facility] US BREAST SPECIMENon 023 US BREAST SPECIMEN Patient: HARMAN MCLEOD Exam Date: 10/19/2022 : 1940 Gender:F Ordering : DR ILIANA GAGNON . Admission #: [id number] Family : Order #: [id number] CLICK HERE TO VIEW EXAM RADIOLOGY REPORT PROCEDURE: US BREAST SPECIMEN COMPARISON: None. INDICATIONS: Specimen from breast FINDINGS: Breast specimen demonstrates inclusion of the targeted mass as well as the micro clip marker CONCLUSION: Targeted mass and micro clip marker included within the specimen Dictated by: Judson Bauman MD on 10/19/2022 at 11:46 Approved by: Judson Bauman MD on 10/19/2022 at 11:47 [facility] US GUIDE LOCAL BREAST RTon 0 10-19-2022 US GUIDE LOCAL BREAST RT Patient: HARMAN MCLEOD Exam Date: 10/19/2022 : 1940 Gender:F Ordering : DR ILIANA GAGNON . Admission #: [id number] Family : Order #: [id number] CLICK HERE TO VIEW EXAM RADIOLOGY REPORT [...] clip marker LOCATION: Right breast 9 NEEDLE: CympelsandeepRunnerPlace spring hook; 20 g by 5 cm needle and wire. MEDICATION: 6 cubic cm Superficial and deep buffered 1% lidocaine. COMPLICATIONS: None. CONCLUSION: Technically successful hookwire localization. Dictated by: Judson Bauman MD on 10/19/2022 at 09:04 Approved by: Judson Bauman MD on 10/19/2022 at 09:05 [facility] US SENTINEL NODEon 3 US SENTINEL NODE EXAM: US SENTINEL NO DE HISTORY: Infiltrating duct carcinoma COMPARISON: None. TECHNIQUE: Grayscale and color ultrasound FINDINGS: Grayscale and color ultrasound demonstrates a 1.6 x 0.8 cm lobular heterogeneous hypoechogenic mass at the 9:00 position. Associated microclip marker from prior biopsy IMPRESSION: Localization of a 1.6 cm right breast mass Electronically authenticated by: JUDSON BAUMAN Date: 2022-10-19 08:59 Normal [facility] RAD - MISCon 10-17-2022 RAD - MISC [id number]#1.0 0CD:127 Normal [facility] CBC AUTO DIFFon 10-11-2022 BASO # 0.0 103/ul Normal 0.0-0.1 [facility] Comment on above: Performed By: #### H GB #### [facility] [address] [address] [address] Omid Bowden Basophils/100 WBC (Bld) 0.2 % Normal 0.2-2.0 [facility] Comment on above: Performed By: #### H GB #### [facility] [address] [address] [address] Omid Bowden EO # 0.0 103/ul Normal 0.0-0.7 [facility] Comment on above: Performed By: #### H GB #### [facility] [address] [address] [address] Omid Bowden Eosinophils/100 WBC (Bld) 0.3 % Critically low 0.9-7.0 [facility] Comment on above: Performed By: #### H GB #### [facility] [address] [address] [address] Omid Bowden Erythrocyte distribution width (RBC) [Ratio] 13.7 % Normal 11.0-15.0 [facility] Comment on above: Performed By: #### H GB #### [facility] [address] [address] [address] Omid Bowden Hematocrit (Bld) [Volume fraction] 39.6 % Normal 36.0-48.0 [facility] Comment on above: Performed By: #### H GB #### [facility] [address] [address] [address] Omid Bowden Hemoglobin (Bld) [Mass/Vol] 12.3 g/dL Normal 12.0-16.0 [facility] Comment on above: Performed By: #### H GB #### [facility] [address] [address] [address] Omid Bowden IG # 0.06 10e3/ul Critically high 0.00-0.03 [facility] Comment on above: Performed By: #### H GB #### [facility] [address] [address] [address] Omid Bowden IG % 0.5 % Normal 0.0-0.5 [facility] Comment on above: Performed By: #### H GB #### [facility] [address] [address] [address] Omid Bowden LYMPH # 2.9 103/ul Normal 1.2-3.8 [facility] Comment on above: Performed By: #### H GB #### [facility] [address] [place] [address] Dr. Omid Bowden Lymphocytes/100 WBC (Bld) 26.2 % Normal 20.5-60.0 [facility] Comment on above: Performed By: #### H GB #### [facility] [address] [place] [address] Dr. Omid Bowden MANUAL DIFF REQ NO Normal [facility] Comment on above: Performed By: #### H GB #### [facility] [address] [place] [address] Dr. Omid Bowden MCH (RBC) [Entitic mass] 28.3 pg Normal 26.7-34.0 [facility] Comment on above: Performed By: #### H GB #### [facility] [address] [place] [address] Dr. Omid Bowden MCHC (RBC) [Mass/Vol] 31.1 g/dL Normal 29.9-35.2 [facility] Comment on above: Performed By: #### H GB #### [facility] [address] [place] [address] Dr. Omid Bowden MCV (RBC) [Entitic vol] 91.2 fL Normal 81.0-99.0 [facility] Comment on above: Performed By: #### H GB #### [facility] [address] [address] [address] Omid Bowden MONO # 0.9 103/ul Critically high 0.3-0.8 [facility] Comment on above: Performed By: #### H GB #### [facility] [address] [address] [address] Omid Bowden Monocytes/100 WBC (Bld) 8.3 % Normal 1.7-12.0 [facility] Comment on above: Performed By: #### H GB #### [facility] [address] [address] [address] Omid Bowden NEUT # 7.0 103/ul Critically high 1.4-6.5 [facility] Comment on above: Performed By: #### H GB #### [facility] [address] [place] [address] Dr. Omid Bowden Neutrophils/100 WBC (Bld) 64.5 % Normal 43.0-75.0 [facility] Comment on above: Performed By: #### H GB #### [facility] [address] [place] [address] Dr. Omid Bowden Platelet mean volume (Bld) [Entitic vol] 9.2 fL Critically low 9.5-13.5 [facility] Comment on above: Performed By: #### H GB #### [facility] [address] [place] [address] Dr. Omid Bowden PLT 346 103/ul Normal 150-450 [facility] Comment on above: Performed By: #### H GB #### [facility] [address] [address] [address] Omid Bowden RBC 4.34 106/ul Normal 4.20-5.40 [facility] Comment on above: Performed By: #### H GB #### [facility] [address] [address] [address] Omid Bowden WBC 10.9 103/ul Normal 4.0-11.0 [facility] Comment on above: Performed By: #### H GB #### [facility] [address] [address] [address] Omid Bowden PROF CHEM 8 (BAS METB)on Anion gap [Moles/Vol] 11.0 mmol/L Normal [facility] Comment on above: Performed By: #### L IPID, BMP #### [facility] [address] [place] [address] Dr. Omid Bowden Calcium [Mass/Vol] 9.6 mg/dL Normal 8.5-10.1 [facility] Comment on above: Performed By: #### L IPID, BMP #### [facility] [address] [address] [address] Omid Bowden Chloride [Moles/Vol] 99 mmol/L Normal 98-107 [facility] Comment on above: Performed By: #### L IPID, BMP #### [facility] [address] [place] [address] Dr. Omid Bowden CO2 [Moles/Vol] 32.0 mmol/L Normal 21.0-32.0 [facility] Comment on above: Performed By: #### L IPID, BMP #### [facility] [address] [place] [address] Dr. Omid Bowden Creatinine [Mass/Vol] 1.03 mg/dL Critically high 0.55-1.02 [facility] Comment on above: Performed By: #### L IPID, BMP #### [facility] [address] [place] [address] Dr. Omid Bowden EGFR-AF BERMUDIAN >60 Normal >=60 [facility] Comment on above: Performed By: #### L IPID, BMP #### [facility] [address] [place] [address] Dr. Omid Bowden EGFR-NON AF BERMUDIAN 52 mL/min/1.73m2 Critically low >=60 [facility] Comment on above: Performed By: #### L IPID, BMP #### [facility] [address] [place] [address] Dr. Omid Bowden Glucose [Mass/Vol] 94 mg/dL Normal 74-106 [facility] Comment on above: Performed By: #### L IPID, BMP #### [facility] [address] [place] [address] Dr. Omid Bowden Potassium [Moles/Vol] 4.0 mmol/L Normal 3.5-5.1 [facility] Comment on above: Performed By: #### L IPID, BMP #### [facility] [address] [place] [address] Dr. Omid Bowden Sodium [Moles/Vol] 138 mmol/L Normal 136-145 [facility] Comment on above: Performed By: #### L IPID, BMP #### [facility] [address] [place] [address] Dr. Omid Bowden Urea nitrogen [Mass/Vol] 28.0 mg/dL Critically high 7.0-18.0 [facility] Comment on above: Performed By: #### L IPID, BMP #### [facility] [address] [place] [address] Dr. Omid Bowden Urea nitrogen/Creatinine [Mass ratio] 27.2 mg/mg Normal [facility] Comment on above: Performed By: #### L IPID, BMP #### [facility] [address] [place] [address] Dr. Omid Bowden PROTIMEon 10-11-2022 INR Coag (PPP) [Relative time] 0.99 {INR} Normal [facility] Comment on above: Performed By: #### H GB #### [facility] [address] [place] [address] Dr. Omid Bowden INR GUIDELINES SEE BELOW Normal [facility] [place] [facility] Comment on above: Result Comment: PERLITA RED INR: 2.0 - 3.0 CONDITIONS NOT LISTED BELOW 2.5 - 3.5 FOR PROSTHETIC HEART VALVE REPLACEMENT 2.5 - 3.5 RECURRENT THROMBOSIS Performed By: #### H GB #### [facility] [address] [place] [address] Dr. Omid Bowden PT Coag (PPP) [Time] 10.5 s Normal 9.0-11.6 [facility] Comment on above: Performed By: #### H GB #### [facility] [address] [address] [address] Omid Bowden PTTon 10-11-2022 aPTT Coag (Bld) [Time] 28.6 s Normal 22.3-36.2 [facility] Comment on above: Performed By: #### H GB #### [facility] [address] [address] [address] Omid Bowden Consultation Noteon 10-06-19 Consultation Note [id number] 0CD:127 Normal [facility] INSULINon 10-01-2022 Insulin 22.8 uIU/mL Normal 2.6-24.9 [facility] Comment on above: Performed By: #### L IPID, BMP #### [facility] [address] [place] [address] Dr. Omid Bowden GLYCOHEMOGLOBIN A1Con 2022 ADA RECOMMENDATION SEE BELOW Normal [facility] Comment on above: Result Comment: ADA RECOMMENDED LIMIT 4.0 - 6.0 ADA THERAPEUTIC TARGET < 7.0 ACTION SUGGESTED > 7.0 Performed By: #### H GB #### [facility] [address] [address] [address] Omid Bowden Glucose [Mass/Vol] 177 mg/dL Normal [facility] Comment on above: Performed By: #### H GB #### [facility] [address] [address] [address] Omid Bowden HbA1c (Bld) [Mass fraction] 7.8 % Critically high 4.5-6.2 [facility] Comment on above: Performed By: #### H GB #### [facility] [address] [address] [address] Omid Bowden PROF 14(COMP METB)on 023 Albumin [Mass/Vol] 3.0 g/dL Critically low 3.4-5.0 [facility] Comment on above: Performed By: #### C MP ####[facility] [address] [address]Dr[address] Omid Bowden Albumin/Globulin [Mass ratio] 0.7 {ratio} Normal [facility] Comment on above: Performed By: #### C MP ####[facility] [address] [address]Dr. Omid Kal ALP [Catalytic activity/Vol] 73 U/L Normal 46-116 [facility] Comment on above: Performed By: #### C MP ####[facility] [address] [address]Dr. Omid Kal ALT [Catalytic activity/Vol] 16 U/L Normal 14-59 [facility] Comment on above: Performed By: #### C MP ####[facility] [address] [place], [place] [address]Dr. Omid Bowden Anion gap [Moles/Vol] 11.3 mmol/L Normal [facility] Comment on above: Performed By: #### C MP ####[facility] [address] [place], [place] [address]Dr. Omid Bowden AST [Catalytic activity/Vol] 14 U/L Critically low 15-37 [facility] Comment on above: Performed By: #### C MP ####[facility] [address] [place], [place] [address]Dr. Omid Bowden Bilirubin [Mass/Vol] 0.3 mg/dL Normal 0.2-1.0 [facility] Comment on above: Performed By: #### C MP ####[facility] [address] [place], [place] [address]Dr. Omid Bowden Calcium [Mass/Vol] 9.5 mg/dL Normal 8.5-10.1 [facility] Comment on above: Performed By: #### C MP ####[facility] [address] [place], [place] [address]Dr. Omid Bowden Chloride [Moles/Vol] 102 mmol/L Normal 98-107 [facility] Comment on above: Performed By: #### C MP ####[facility] [address] [place] [address]Dr. Omid Bowden CO2 [Moles/Vol] 31.1 mmol/L Normal 21.0-32.0 [facility] Comment on above: Performed By: #### C MP ####[facility] [address] [place] [id number]. Omid Bowden Creatinine [Mass/Vol] 1.28 mg/dL Critically high 0.55-1.02 [facility] Comment on above: Performed By: #### C MP ####[facility] [address] [place] [id number]. Omid Bowden EGFR-AF BERMUDIAN 49 mL/min/1.73m2 Critically low >=60 [facility] Comment on above: Performed By: #### C MP ####[facility] [address] [place] [address]Dr. Omid Bowden EGFR-NON AF BERMUDIAN 40 mL/min/1.73m2 Critically low >=60 [facility] Comment on above: Performed By: #### C MP ####[facility] [address] [place] [address]Dr. Omid Bowden Globulin (S) [Mass/Vol] 4.4 g/dL Normal [facility] Comment on above: Performed By: #### C MP ####[facility] [address] [address]Dr. Omid Bowden Glucose [Mass/Vol] 103 mg/dL Normal 74-106 [facility] Comment on above: Performed By: #### C MP ####[facility] [address] [place] [address]Dr. Omid Bowden Potassium [Moles/Vol] 4.4 mmol/L Normal 3.5-5.1 [facility] Comment on above: Performed By: #### C MP ####[facility] [address] [place] [address]Dr. Omid Bowden Protein [Mass/Vol] 7.4 g/dL Normal 6.4-8.2 [facility] Comment on above: Performed By: #### C MP ####[facility] [address] [place] [id number]. Omid Bowden Sodium [Moles/Vol] 140 mmol/L Normal 136-145 [facility] Comment on above: Performed By: #### C MP ####[facility] [address] [place], [place] [address]Fn. Omid Bowden Urea nitrogen [Mass/Vol] 27.0 mg/dL Critically high 7.0-18.0 [facility] Comment on above: Performed By: #### C MP ####[facility] [address] [place], [place] [address]He. Omid Bowden Urea nitrogen/Creatinine [Mass ratio] 21.1 mg/mg Normal [facility] Comment on above: Performed By: #### C MP ####[facility] [address] [place], [place] [address]Rf. Oimd Bowden Formson 09-29-2022 Forms [id number] 0CD:127 Normal [facility] Consent for Procedure/Surger yon 09-26-2022 Consent for Procedure/Surgery [id number]#1.0 0CD:127 Normal [facility] Consultation Noteon 09-23-19 Consultation Note [id number]#1.0 0CD:127 [facility] CNOVon 09-22-2022 CNOV Office Visit (RADTSA ) HARMAN MCLEOD ([id number]) 1940 F Date Time Provider Department 09/22/22 1:00 PM MARCIN SHAH During your visit today, we recorded the following information about you: Marcin Shah MD 2022 6:06 AM Addendum Radiation Oncology - New Patient/Consult Note PATIENT NAME: Harman Graffming PATIENT REQUESTING PHYSICIAN: Dr. 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 PATIENT IDENTIFICATION: This patient was seen in the Department of Radiation Oncology at the [facility] with Marcin Shah MD. She was accompanied today by her family. Final recommendations will be communicated back to the requesting physician by way of the shared medical record, or letter to requesting physician via US mail. HISTORY OF PRESENT ILLNESS: Ms. Mcleod is an 82-year-old woman from [place], [place] who was discovered on screening mammogram from July 2022 to have an abnormality within the anterior upper outer quadrant of the right breast. This was confirmed on ultrasound and she underwent stereotactic biopsy on 08/19/2022 with pathology revealing intermediate grade IDC that was ER/TX positive HER2 negative. She has met with [...] tablet crenshaw (more content not included)... Normal [facility] CNOVSPon 09-22-2022 CNOVSP Visit (SP) Office (HEMASA) HARMAN MCLEOD ([id number]) 1940 F Date Time Provider Department 09/22/22 11:30 AM WALLACE STONE During your visit today, we recorded the following information about you: Temperature Pulse Respiration Blood pressure 97.8 degrees 70/minute 16/minute 137/64 Weight Height 84.8 kg 1.549 m Wallace Stone MD 09/22/2022 5:19 PM Signed PATIENT NAME: Harman Mcleod CLINIC NO.: [id number] ATTENDING PHYSICIAN: Wallace Stone MD DATE OF [...] provisional grade 1 through 2, ER and TX greater than 95% positive, HER2/holden negative with an IHC score of 1+ and FISH negative at [facility]. This patient was subsequently referred to Dr. Iliana Gagnon for surgical consultation. Patient denies any previous history of abnormal mammograms and or breast biopsy. She has had a recent bone density in [place] and was diagnosed with osteoporosis and started on Prolia as well. Patient has a sister who was diagnosed with breast cancer at the age of 82 and her daughter diagnosed with breast cancer at the age of 37. She quit smoking approximately 4 years ago. 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 She [...] mouth daily at bedtime. Cut in half Eguzg-9-FHF-EPA-Fish Oil 1,000 mg (120 mg-180 mg) cap [...] high r (more content not included)... Normal [facility] CNPNon 09-22-2022 CNPN Telephone (HEMASA) HARMAN MCLEOD ([id number]) 1940 F Date Time Provider Department 09/22/22 [...] Fully Assessed Reason for Visit: Care Coordination [4061] Cmt: Surgery update Prescriptions as of 09/22/2022 [...] daily at bedtime. Cut in half - Sgfeh-6-EZV-EPA-Fish Oil 1,000 mg (120 mg-180 mg) cap Take 2 g by mouth twice daily. - isosorbide mononitrate ER (IMDUR) 60 mg 24 hr tablet Take 60 mg by mouth twice daily. 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 Consultation Noteon 09-22-19 Consultation Note [id number]#1.0 0CD:127 Normal [facility] Covid-19 PCR (CVDTB)on 09-11 SARS-CoV-2 (COVID-19) RNA MARII+probe Ql (Unsp spec) Not detected Normal NOT DETECTED [facility] Comment on above: Result Comment: When diagnostic [...] for this test is supported by the [place] of Health and Human Service's declaration that [...] be used). Performed By: #### C VDTBH ####[facility] [address] [place], [place] [address]Dr. Omid [facility] INFLUENZA A AND B AGon 09-21 INFLUANEGH SEE BELOW Normal [facility] Comment on above: Result Comment: Nega tive for Flu A protein angiten. Infection due to Flu A cannot be ruled out. Flu A angiten in the sample may be below the detection limit of the test. Performed By: #### I NFLUAB ####[facility] [address] [place], [place] [address]Dr. [facility] INFLUBNEGH SEE BELOW Normal [facility] Comment on above: Result Comment: Nega tive for Flu B protein antigen. Infection due to Flu B cannot be ruled out. Flu B antigen in the sample may be below the detection limit of the test. Performed By: #### I NFLUAB ####[facility] [address] [place], [place] [address]Dr. [facility] INFLUENZA A AG Negative Normal NEGATIVE SEE COMMENT [facility] Comment on above: Performed By: #### I NFLUAB ####[facility] [address] [place], [place] [address]Dr. [facility] INFLUENZA B AG Negative Normal NEGATIVE SEE COMMENT [facility] Comment on above: Performed By: #### I NFLUAB ####[facility] [address] [place], [place] [address]Dr. Omid Bowden LIPID PROFILEon 09-16-2022 CHOL-HDL RATIO NORM SEE BELOW Normal [facility] Comment on above: Result Comment: 3.3 - 4.4 LOW RISK 4.4 - 7.1 AVERAGE RISK 7.1 - 11.0 MODERATE RISK >11.0 HIGH RISK Performed By: #### L IPID, BMP #### [facility] [address] [address] [address] Omid Bowden Cholesterol [Mass/Vol] 210 mg/dL Critically high <=200 [facility] Comment on above: Performed By: #### L IPID, BMP #### [facility] [address] [address] [address] Omid Bowden Cholesterol in HDL [Mass/Vol] 49 mg/dL Normal 40-60 [facility] Comment on above: Performed By: #### L IPID, BMP #### [facility] [address] [address] [address] Omid Bowden Cholesterol in LDL [Mass/Vol] 84.2 mg/dL Normal [facility] Comment on above: Performed By: #### L IPID, BMP #### [facility] [address] [address] [address] Omid Bowden Cholesterol.total/Chol esterol in HDL [Mass ratio] 4.3 {ratio} Normal [facility] Comment on above: Performed By: #### L IPID, BMP #### [facility] [address] [address] [address] Omid Bowden HDL NORMAL > or = 60 mg/dl - LO W CARDIOVASCULAR RISK <40 mg/dl - HIGH CARDIOVASCULAR RISK Normal [facility] Comment on above: Performed By: #### L IPID, BMP #### [facility] [address] [address] [address] Omid Bowden LDL CALC NORMAL SEE BELOW Normal [facility] Comment on above: Result Comment: <100 mg/dl OPTIMAL 100 - 129 mg/dl NEAR OR ABOVE OPTIMAL 130 - 159 mg/dl BORDERLINE HIGH 160 - 189 mg/dl HIGH >190 mg/dl VERY HIGH Performed By: #### L IPID, BMP #### [facility] [address] [address] [address] Omid Bowden Triglyceride [Mass/Vol] 384 mg/dL Critically high <=150 [facility] Comment on above: Performed By: #### L IPID, BMP #### [facility] [address] [place] [address] Dr. Omid Bowden VLDL CALC 76.8 mg/dL Normal [facility] Comment on above: Performed By: #### L IPID, BMP #### [facility] [address] [place] [address] Dr. Omid Bowden PROF CHEM 8 (BAS METB)on Anion gap [Moles/Vol] 10.8 mmol/L Normal [facility] Comment on above: Performed By: #### L IPID, BMP #### [facility] [address] [place] [address] Dr. Omid Bowden Calcium [Mass/Vol] 8.8 mg/dL Normal 8.5-10.1 [facility] Comment on above: Performed By: #### L IPID, BMP #### [facility] [address] [place] [address] Dr. Omid Bowden Chloride [Moles/Vol] 98 mmol/L Normal 98-107 [facility] Comment on above: Performed By: #### L IPID, BMP #### [facility] [address] [place] [address] Dr. Omid Bowden CO2 [Moles/Vol] 34.5 mmol/L Critically high 21.0-32.0 [facility] Comment on above: Performed By: #### L IPID, BMP #### [facility] [address] [place] [address] Dr. Omid Bowden Creatinine [Mass/Vol] 1.17 mg/dL Critically high 0.55-1.02 [facility] Comment on above: Performed By: #### L IPID, BMP #### [facility] [address] [place] [address] Dr. Omid Bowden EGFR-AF BERMUDIAN 54 mL/min/1.73m2 Critically low >=60 [facility] Comment on above: Performed By: #### L IPID, BMP #### [facility] [address] [address] [address] Omid Bowden EGFR-NON AF BERMUDIAN 45 mL/min/1.73m2 Critically low >=60 [facility] Comment on above: Performed By: #### L IPID, BMP #### [facility] [address] [address] [address] Omid Bowden Glucose [Mass/Vol] 193 mg/dL Critically high 74-106 [facility] Comment on above: Performed By: #### L IPID, BMP #### [facility] [address] [address] [address] Omid Bowden Potassium [Moles/Vol] 3.3 mmol/L Critically low 3.5-5.1 [facility] Comment on above: Performed By: #### L IPID, BMP #### [facility] [address] [address] [address] Omid Bowden Sodium [Moles/Vol] 140 mmol/L Normal 136-145 [facility] Comment on above: Performed By: #### L IPID, BMP #### [facility] [address] [address] [address] Omid Bowden Urea nitrogen [Mass/Vol] 31.0 mg/dL Critically high 7.0-18.0 [facility] Comment on above: Performed By: #### L IPID, BMP #### [facility] [address] [address] [address] Omid Bowden Urea nitrogen/Creatinine [Mass ratio] 26.5 mg/mg Normal [facility] Comment on above: Performed By: #### L IPID, BMP #### [facility] [address] [address] [address] Omid Bowden Facesheeton 09-13-2022 Facesheet [id number]#1.0 0CD:127 Normal [facility] Consultation Noteon 09-01-20 Consultation Note [id number]#1.0 0CD:127 Normal [facility] ED Note-Physicianon 09-01-20 ED Note-Physician [id number]#1.0 0CD:127 Normal [facility] Lab Reportson 09-01-2022 Lab Reports [id number]#1.0 0CD:127 Normal [facility] Lab Reports [id number]#1.0 0CD:127 Normal [facility] Physician Referralon 022 Physician Referral [id number] 0CD:127 Normal [facility] C. DIFF PCRon 08-23-2022 C. DIFFICILE PCR Negative Normal NEGATIVE [facility] Comment on above: Performed By: #### C DIFPOC ####[facility] [address] [place], [place] [address]Dr. Omid Bowden CBC AUTO DIFFon 08-19-2022 BASO # 0.0 103/ul Normal 0.0-0.1 [facility] Comment on above: Performed By: #### C BC ####[facility] [address] [place], [place] [address]Dr. Omid Bowden Basophils/100 WBC (Bld) 0.3 % Normal 0.2-2.0 [facility] Comment on above: Performed By: #### C BC ####[facility] [address] [place], [place] [address]Dr. Omid Bowden EO # 0.5 103/ul Normal 0.0-0.7 [facility] Comment on above: Performed By: #### C BC ####[facility] [address] [place], [place] [address]Dr. Omid Bowden Eosinophils/100 WBC (Bld) 3.2 % Normal 0.9-7.0 [facility] Comment on above: Performed By: #### C BC ####[facility] [address] [place], [place] [address]Dr. Omid Bowden Erythrocyte distribution width (RBC) [Ratio] 14.1 % Normal 11.0-15.0 [facility] Comment on above: Performed By: #### C BC ####[facility] [address] [place] [address]DrMedardo Bowden Hematocrit (Bld) [Volume fraction] 36.1 % Normal 36.0-48.0 [facility] Comment on above: Performed By: #### C BC ####[facility] [address] [place] [address]DrMedardo Bowden Hemoglobin (Bld) [Mass/Vol] 11.7 g/dL Critically low 12.0-16.0 [facility] Comment on above: Performed By: #### C BC ####[facility] [address] [place], [place] [address]DrMedardo Bowden IG # 0.08 10e3/ul Critically high 0.00-0.03 [facility] Comment on above: Performed By: #### C BC ####[facility] [address] [place], [place] [address]DrMedardo Bowden IG % 0.5 % Normal 0.0-0.5 [facility] Comment on above: Performed By: #### C BC ####[facility] [address] [place], [place] [address]DrMedardo Bowden LYMPH # 1.2 103/ul Normal 1.2-3.8 [facility] Comment on above: Performed By: #### C BC ####[facility] [address] [place], [place] [address]DrMedardo Bowden Lymphocytes/100 WBC (Bld) 7.5 % Critically low 20.5-60.0 [facility] Comment on above: Performed By: #### C BC ####[facility] [address] [place], [place] [address]DrMedardo Bowden MANUAL DIFF REQ NO Normal [facility] Comment on above: Performed By: #### C BC ####[facility] [address] [place], [place] [address]DrMedardo Bowden MCH (RBC) [Entitic mass] 29.2 pg Normal 26.7-34.0 [facility] Comment on above: Performed By: #### C BC ####[facility] [address] [place] [address]DrMedardo Bowden MCHC (RBC) [Mass/Vol] 32.4 g/dL Normal 29.9-35.2 [facility] Comment on above: Performed By: #### C BC ####[facility] [address] [place] [address]DrMedardo Bowden MCV (RBC) [Entitic vol] 90.0 fL Normal 81.0-99.0 [facility] Comment on above: Performed By: #### C BC ####[facility] [address] [place], [place] [address]DrMedardo Bowden MONO # 1.0 103/ul Critically high 0.3-0.8 [facility] Comment on above: Performed By: #### C BC ####[facility] [address] [place], [place] [address]DrMedardo Bowden Monocytes/100 WBC (Bld) 6.8 % Normal 1.7-12.0 [facility] Comment on above: Performed By: #### C BC ####[facility] [address] [place], [place] [address]DrMedardo Bowden NEUT # 12.5 103/ul Critically high 1.4-6.5 [facility] Comment on above: Performed By: #### C BC ####[facility] [address] [place], [place] [address]DrMedardo Bowden Neutrophils/100 WBC (Bld) 81.7 % Critically high 43.0-75.0 [facility] Comment on above: Performed By: #### C BC ####[facility] [address] [place], [place] [address]DrMedardo Bowden Platelet mean volume (Bld) [Entitic vol] 8.9 fL Critically low 9.5-13.5 [facility] Comment on above: Performed By: #### C BC ####[facility] [address] [place], [place] [address]Dr. Omid Bowden PLT 252 103/ul Normal 150-450 [facility] Comment on above: Performed By: #### C BC ####[facility] [address] [place], [place] [address]Je. Omid Bowden RBC 4.01 106/ul Critically low 4.20-5.40 [facility] Comment on above: Performed By: #### C BC ####[facility] [address] [place], [place] [address]WvMedardo Omid Bowden WBC 15.3 103/ul Critically high 4.0-11.0 [facility] Comment on above: Performed By: #### C BC ####[facility] [address] [place], [place] [address]LgDr. Omid Bowden IRONon 08-19-2022 Iron [Mass/Vol] 59.0 ug/dL Normal 50.0-170.0 [facility] Comment on above: Performed By: #### H GB #### [facility] [address] [place], [place] [address] Dr. Omid Bowden MAMMO POST BIOPSY RIGHTon MAMMO POST BIOPSY RIGHT Patient: HARMAN MCLEOD Exam Date: 08/19/2022 : 1940 Gender:F Ordering : DR MATEUS PERRY . Admission #: [id number] Family : Order #: [id number] CLICK HERE TO VIEW EXAM This report [...] MD on 09/06/2022 at 09:57 Normal [facility] PROTIMEon 08-19-2022 INR Coag (PPP) [Relative time] 0.99 {INR} Normal [facility] Comment on above: Performed By: #### P T, PTT ####[facility] [address] [place] [address]Dr. Omid Bowden INR GUIDELINES SEE BELOW Normal [facility] Comment on above: Result Comment: PERLITA RED INR: 2.0 - 3.0 CONDITIONS NOT LISTED BELOW 2.5 - 3.5 FOR PROSTHETIC HEART VALVE REPLACEMENT 2.5 - 3.5 RECURRENT THROMBOSIS Performed By: #### P T, PTT ####[facility] [address] [place] [address]Dr. Aixamegan Bowden PT Coag (PPP) [Time] 10.7 s Normal 9.0-11.6 [facility] Comment on above: Performed By: #### P T, PTT ####[facility] [address] [place] [address]Dr. Omid Bowden PTTon 08-19-2022 aPTT Coag (Bld) [Time] 26.0 s Normal 22.3-36.2 e [facility] Comment on above: Performed By: #### P T, PTT ####[facility] [address] [place] [address]Dr. Omid Bowden US VAC ASST BX BRST RT W CLI Jose Maria 08-19-2022 US VAC ASST BX BRST RT W CLIP Patient: HARMAN MCLEOD Exam Date: 08/19/2022 : 1940 Gender:F Ordering : DR MATEUS PERRY . Admission #: [id number] Family : Order #: [id number] CLICK HERE TO VIEW EXAM This report [...] Bauman MD on 09/06/2022 at 09:55 Normal [facility] CULTURE URINEon 08-16-2022 CULTURE URINE Isolate [...] R F Nitrofurantoin <=16 S F Normal [facility] Comment on above: Performed By: #### U RCX ####[facility] [address] [place], [place] [address]RdDr. Omid Bowden CARDIAC ADILIA ADMITon 022 CK [Catalytic activity/Vol] 128 U/L Normal 26-192 [facility] Comment on above: Performed By: #### L IPID, BMP #### [facility] [address] [place], [place] [address] Dr. Omid Bowden CK.MB [Mass/Vol] 2.88 ng/mL Normal <=3.60 [facility] Comment on above: Performed By: #### L IPID, BMP #### [facility] [address] [place] [address] Dr. Omid Bowden HSTROP 24.1 pg/mL Normal 4.0-51.3 [facility] Comment on above: Result Comment: CUT- OFF POINTS HAVE BEEN ESTABLISHED BASED ON THE FOURTH UNIVERSAL DEFINITIONS OF MYOCARDIAL INFARCTION. THE UPPER REFERENCE LIMIT (URL) OF TROPONIN, DEFINED THE 99TH PERCENTILE OF cTnI DISTRIBUTION IN A REFERENCE POPULATION, HAS BEEN CONFIRMED THE DECISION THRESHOLD FOR VA DIAGNOSIS. Performed By: #### L IPID, BMP #### [facility] [address] [place] [address] Dr. Omid Bowden JACINTA 61 ng/mL Normal 9-82 [facility] Comment on above: Performed By: #### L IPID, BMP #### [facility] [address] [place] [address] Dr. Omid Bowden CBC AUTO DIFFon 08-14-2022 BASO # 0.0 103/ul Normal 0.0-0.1 [facility] Comment on above: Performed By: #### H GB #### [facility] [address] [place] [address] Dr. Omid Bowden Basophils/100 WBC (Bld) 0.4 % Normal 0.2-2.0 [facility] Comment on above: Performed By: #### H GB #### [facility] [address] [place] [address] Dr. Omid Bowden EO # 0.3 103/ul Normal 0.0-0.7 [facility] Comment on above: Performed By: #### H GB #### [facility] [address] [place] [address] Dr. Omid Bowden Eosinophils/100 WBC (Bld) 2.6 % Normal 0.9-7.0 [facility] Comment on above: Performed By: #### H GB #### [facility] [address] [place] [address] Dr. Omid Bowden Erythrocyte distribution width (RBC) [Ratio] 14.1 % Normal 11.0-15.0 [facility] Comment on above: Performed By: #### H GB #### [facility] [address] [address] [address] Omid Bowden Hematocrit (Bld) [Volume fraction] 35.5 % Critically low 36.0-48.0 [facility] Comment on above: Performed By: #### H GB #### [facility] [address] [address] [address] Omid Bowden Hemoglobin (Bld) [Mass/Vol] 11.6 g/dL Critically low 12.0-16.0 [facility] Comment on above: Performed By: #### H GB #### [facility] [address] [place] [address] Dr. Omid Bowden IG # 0.06 10e3/ul Critically high 0.00-0.03 [facility] Comment on above: Performed By: #### H GB #### [facility] [address] [place] [address] Dr. Omid Bowden IG % 0.6 % Critically high 0.0-0.5 [facility] Comment on above: Performed By: #### H GB #### [facility] [address] [place] [address] Dr. Omid Bowden LYMPH # 3.4 103/ul Normal 1.2-3.8 [facility] Comment on above: Performed By: #### H GB #### [facility] [address] [place] [address] Dr. Omid Bowden Lymphocytes/100 WBC (Bld) 35.5 % Normal 20.5-60.0 [facility] Comment on above: Performed By: #### H GB #### [facility] [address] [place] [address] Dr. Omid Bowden MANUAL DIFF REQ NO Normal [facility] Comment on above: Performed By: #### H GB #### [facility] [address] [place] [address] Dr. Omid Bowden MCH (RBC) [Entitic mass] 29.5 pg Normal 26.7-34.0 [facility] Comment on above: Performed By: #### H GB #### [facility] [address] [address] [address] Omid Bowden MCHC (RBC) [Mass/Vol] 32.7 g/dL Normal 29.9-35.2 [facility] Comment on above: Performed By: #### H GB #### [facility] [address] [address] [address] Omid Bowden MCV (RBC) [Entitic vol] 90.3 fL Normal 81.0-99.0 [facility] Comment on above: Performed By: #### H GB #### [facility] [address] [address] [address] Omid Bowden MONO # 1.0 103/ul Critically high 0.3-0.8 [facility] Comment on above: Performed By: #### H GB #### [facility] [address] [address] [address] Omid Bowden Monocytes/100 WBC (Bld) 10.5 % Normal 1.7-12.0 [facility] Comment on above: Performed By: #### H GB #### [facility] [address] [address] [address] Omid Bowden NEUT # 4.8 103/ul Normal 1.4-6.5 [facility] Comment on above: Performed By: #### H GB #### [facility] [address] [address] [address] Omid Bowden Neutrophils/100 WBC (Bld) 50.4 % Normal 43.0-75.0 [facility] Comment on above: Performed By: #### H GB #### [facility] [address] [address] [address] Omid Bowden Platelet mean volume (Bld) [Entitic vol] 9.1 fL Critically low 9.5-13.5 [facility] Comment on above: Performed By: #### H GB #### [facility] [address] [address] [address] Omdi Bowden PLT 276 103/ul Normal 150-450 [facility] Comment on above: Performed By: #### H GB #### [facility] [address] [address] [address] Omid Bowden RBC 3.93 106/ul Critically low 4.20-5.40 [facility] Comment on above: Performed By: #### H GB #### [facility] [address] [address] [address] Omid Bowden WBC 9.5 103/ul Normal 4.0-11.0 [facility] Comment on above: Performed By: #### H GB #### [facility] [address] [address] [address] Omid Bowden ER URINE PROFILEon 2 Bilirubin Ql (U) Negative Normal NEGATIVE [facility] Comment on above: Performed By: #### U MICRO, ERUR ####[facility] [address] [address]Dr. Omid Bowden Clarity (U) CLEAR Normal CLEAR [facility] Comment on above: Performed By: #### U MICRO, ERUR ####[facility] [address] [address]Dr. Omid Bowden Color (U) LT. YELLOW Normal YELLOW [facility] Comment on above: Performed By: #### U MICRO, ERUR ####[facility] [address] [address]Dr. Omid Bowden ERUAHD A micrscopic examination will be performed if indicated. Normal [facility] Comment on above: Performed By: #### U MICRO, ERUR ####[facility] [address] [address]Dr. Omid Bowden Glucose Ql (U) Negative Normal NEGATIVE [facility] Comment on above: Performed By: #### U MICRO, ERUR ####[facility] [address] [place], [place] [address]Dr. Omid Bowden Hemoglobin Ql (U) Negative Normal NEGATIVE The [facility] Comment on above: Performed By: #### U MICRO, ERUR ####[facility] [address] [place], [place] [address]Dr. Omid Bowden Ketones Ql (U) Negative Normal NEGATIVE [facility] Comment on above: Performed By: #### U MICRO, ERUR ####[facility] [address] [address]Dr. Omid Bowden LEUKOCYTES TRACE Abnormal NEGATIVE [facility] Comment on above: Performed By: #### U MICRO, ERUR ####[facility] [address] [address]Dr. Omid Bowden Nitrite Ql (U) Negative Normal NEGATIVE [facility] Comment on above: Performed By: #### U MICRO, ERUR ####[facility] [address] [address]Dr. Omid Bowden pH (U) 6.0 [pH] Normal 5-9 [facility] Comment on above: Performed By: #### U MICRO, ERUR ####[facility] [address] [place], [place] [address]Dr. Omid Bowden SPEC GRAVITY 1.020 Normal 1.005-<=1.[address] [place] [address] Comment on above: Performed By: #### U MICRO, ERUR ####[facility] [address] [place], [place] [address]Dr. Omid Bowden UA PROTEIN Negative Normal NEGATIVE/ TRACE [facility] Comment on above: Performed By: #### U MICRO, ERUR ####[facility] [address] [place], [place] [address]Dr. Omid Bowden UR MICRO IND INDICATED Normal [facility] Comment on above: Performed By: #### U MICRO, ERUR ####[facility] [address] [place], [place] [address]Dr. Omid Bowden Urobilinogen Qn (U) 0.2 {Jose'U}/dL Normal 0.2 - 1. 0 [facility] Comment on above: Performed By: #### U MICRO, ERUR ####[facility] [address] [place], [place] [address]Dr. Omid Bowden OCC BLD IMMUNO SCREENon 12-0 OCCULT BLOOD Negative Normal NEGATIVE [facility] Comment on above: Performed By: #### O BSCRN #### [facility] [address] [place] [address] Dr. Omid Bowden PROF CHEM 8 (BAS METB)on Anion gap [Moles/Vol] 5.5 mmol/L Normal [facility] Comment on above: Performed By: #### L IPID, BMP #### [facility] [address] [place] [address] Dr. Omid Bowden Calcium [Mass/Vol] 8.6 mg/dL Normal 8.5-10.1 [facility] Comment on above: Performed By: #### L IPID, BMP #### [facility] [address] [place] [address] Dr. Omid Bowden Chloride [Moles/Vol] 103 mmol/L Normal 98-107 [facility] Comment on above: Performed By: #### L IPID, BMP #### [facility] [address] [place] [address] Dr. Omid Bowden CO2 [Moles/Vol] 31.8 mmol/L Normal 21.0-32.0 [facility] Comment on above: Performed By: #### L IPID, BMP #### [facility] [address] [place] [address] Dr. Omid Bowden Creatinine [Mass/Vol] 0.99 mg/dL Normal 0.55-1.02 [facility] Comment on above: Performed By: #### L IPID, BMP #### [facility] [address] [place] [address] Dr. Omid Bowden EGFR-AF BERMUDIAN >60 Normal >=60 [facility] Comment on above: Performed By: #### L IPID, BMP #### [facility] [address] [place] [address] Dr. Omid Bowden EGFR-NON AF BERMUDIAN 54 mL/min/1.73m2 Critically low >=60 [facility] Comment on above: Performed By: #### L IPID, BMP #### [facility] [address] [place] [address] Dr. Omid Bowden Glucose [Mass/Vol] 112 mg/dL Critically high 74-106 T [facility] Comment on above: Performed By: #### L IPID, BMP #### [facility] [address] [address] [address] Omid Bowden Potassium [Moles/Vol] 3.3 mmol/L Critically low 3.5-5.1 [facility] Comment on above: Performed By: #### L IPID, BMP #### [facility] [address] [address] [address] Omid Bowden Sodium [Moles/Vol] 137 mmol/L Normal 136-145 [facility] Comment on above: Performed By: #### L IPID, BMP #### [facility] [address] [place] [address] Dr. Omid Bowden Urea nitrogen [Mass/Vol] 20.0 mg/dL Critically high 7.0-18.0 [facility] Comment on above: Performed By: #### L IPID, BMP #### [facility] [address] [place] [address] Dr. Omid Bowden Urea nitrogen/Creatinine [Mass ratio] 20.2 mg/mg Normal [facility] Comment on above: Performed By: #### L IPID, BMP #### [facility] [address] [place] [address] Dr. Omid Bowden URINE MICROSCOPIC ONLYon BACTERIA TRACE Abnormal NONE SEEN [facility] Comment on above: Performed By: #### U MICRO, ERUR ####[facility] [address] [address]DrMedardo Bowden Bacteria identified Cx Nom (U) INDICATED Normal [facility] Comment on above: Performed By: #### U MICRO, ERUR ####[facility] [address] [address]Dr. Omid Bowden CAST NONE SEEN Normal NONE SEEN [facility] Comment on above: Performed By: #### U MICRO, ERUR ####[facility] [address] [address]DrMedardo Bowden Crystals LM Nom (Urine sed) NONE SEEN Normal NONE SEEN [facility] Comment on above: Performed By: #### U MICRO, ERUR ####[facility] [address] [place], [place] [address]Ku. Omid Bowden Epithelial cells LM Ql (Urine sed) FEW Abnormal NONE SEEN /RARE [facility] Comment on above: Performed By: #### U MICRO, ERUR ####[facility] [address] [place], [place] [address]Ss. Omid Bowden MUCOUS NONE SEEN Normal NONE SEEN [facility] Comment on above: Performed By: #### U MICRO, ERUR ####[facility] [address] [place], [place] [address]Fa. Omid Bowden RBC 0-2 Normal 0-2 [facility] Comment on above: Performed By: #### U MICRO, ERUR ####[facility] [address] [place], [place] [address]Mc. Omid Bowden WBC 20-50 Abnormal NONE SEEN [facility] Comment on above: Performed By: #### U MICRO, ERUR ####[facility] [address] [place], [place] [address]Kz. Omid Bowden XR CHEST 1 Von 08-14-2022 [...] HILL BAILON Date: 2022-08-14 00:46 Normal [facility] Covid-19 PCR (CVDTB)on SARS-CoV-2 (COVID-19) RNA MARII+probe Ql (Unsp spec) Not detected Normal NOT DETECTED [facility] Comment on above: Result Comment: When diagnostic [...] for this test is supported by the Leadership Development Instructor of Health and Human Service's declaration that [...] longer be used). Performed By: #### [facility] #### [facility] [address] [address] [address] Omid Bowden MG MAMM RT DIAG 022 MG MAMM RT DIAG Patient: HARMAN MCLEOD Exam Date: 08/08/2022 : 1940 Gender:F Ordering : DR MTAEUS PERRY . Admission #: [id number] Family : Order #: [id number] CLICK HERE TO VIEW EXAM RADIOLOGY REPORT [...] uterine cancer at age 39. LOCATION: [facility] BREAST COMPOSITION: Scattered areas fibroglandular density. FINDINGS: [...] George M.D. on 08/08/2022 at 15:28 Normal [facility] PROF CHEM 8 (BAS METB)on Anion gap [Moles/Vol] 9.3 mmol/L Normal [facility] Comment on above: Performed By: #### B MP #### [facility] [address] [address] [address] Omid Bowden Calcium [Mass/Vol] 8.1 mg/dL Critically low 8.5-10.1 [facility] Comment on above: Performed By: #### B MP #### [facility] [address] [address] [address] Omid Bowden Chloride [Moles/Vol] 100 mmol/L Normal 98-107 [facility] Comment on above: Performed By: #### B MP #### [facility] [address] [address] [address] Omid Bowden CO2 [Moles/Vol] 31.9 mmol/L Normal 21.0-32.0 [facility] Comment on above: Performed By: #### B MP #### [facility] [address] [address] [address] Omid Bowden Creatinine [Mass/Vol] 1.25 mg/dL Critically high 0.55-1.02 [facility] Comment on above: Performed By: #### B MP #### [facility] [address] [address] [address] Omid Bowden EGFR-AF BERMUDIAN 50 mL/min/1.73m2 Critically low >=60 [facility] Comment on above: Performed By: #### B MP #### [facility] [address] [address] [address] Omid Bowden EGFR-NON AF BERMUDIAN 41 mL/min/1.73m2 Critically low >=60 [facility] Comment on above: Performed By: #### B MP #### [facility] [address] [address] [address] Omid Bowden Glucose [Mass/Vol] 215 mg/dL Critically high 74-106 [facility] Comment on above: Performed By: #### B MP #### [facility] [address] [place], [place] [address] Dr. Omid Bowden Potassium [Moles/Vol] 3.2 mmol/L Critically low 3.5-5.1 [facility] Comment on above: Performed By: #### B MP #### [facility] [address] [address] [address] Omid Bowden Sodium [Moles/Vol] 138 mmol/L Normal 136-145 [facility] Comment on above: Performed By: #### B MP #### [facility] [address] [address] [address] Omid Bowden Urea nitrogen [Mass/Vol] 32.0 mg/dL Critically high 7.0-18.0 [facility] Comment on above: Performed By: #### B MP #### [facility] [address] [address] [address] Omid Bowden Urea nitrogen/Creatinine [Mass ratio] 25.6 mg/mg Normal [facility] Comment on above: Performed By: #### B MP #### [facility] [address] [address] [address] Omid Bowden US BREAST RIGHT LIMITEDon US BREAST RIGHT LIMITED Patient: HARMAN MCLEOD Exam Date: 08/08/2022 : 1940 Gender:F Ordering : DR MATEUS PERRY . Admission #: [id number] Family : Order #: [id number] CLICK HERE TO VIEW EXAM RADIOLOGY REPORT [...] uterine cancer at age 39. LOCATION: [facility] BREAST COMPOSITION: Scattered areas fibroglandular density. FINDINGS: [...] M.D. on 08/08/2022 at 15:28 Normal [facility] CALCIUMon 08-02-2022 Calcium [Mass/Vol] 8.9 mg/dL Normal 8.5-10.1 [facility] Comment on above: Performed By: #### H GB #### [facility] [address] [address] [address] Omid Bowden CREATININEon 08-02-2022 Creatinine [Mass/Vol] 1.19 mg/dL Critically high 0.55-1.02 [facility] Comment on above: Performed By: #### H GB #### [facility] [address] [address] [address] Omid Bowden EGFR-AF BERMUDIAN 53 mL/min/1.73m2 Critically low >=60 [facility] Comment on above: Performed By: #### H GB #### [facility] [address] [address] [address] Omid Bowden EGFR-NON AF BERMUDIAN 44 mL/min/1.73m2 Critically low >=60 [facility] Comment on above: Performed By: #### H GB #### [facility] [address] [address] [address] Omid Bowden MG MAMM SCREEN 3D DAVID CADon 07-19-2022 MG MAMM SCREEN 3D DAVID CAD Patient: HARMAN MCLEOD Exam Date: 07/19/2022 : 1940 Gender:F Ordering : DR MATEUS PERRY . Admission #: [id number] Family : Order #: [id number] CLICK HERE TO VIEW EXAM RADIOLOGY REPORT [...] uterine cancer at age 39. LOCATION: [facility] BREAST COMPOSITION: Scattered areas fibroglandular density. FINDINGS: [...] MD on 07/20/2022 at 07:33 Normal [facility] XR DEXA BONE DENSITYon 07-19 XR [...] JUDSON BAUMAN Date: 2022-07-19 20:17 Normal [facility] CALCIUM, IONIC (POC)on 06-28 POC Ionized Calcium 1.21 mmol/L 1.15 - 1 .33 mmol/L [facility] CHLORIDE (POC)on 06-28-2022 Chloride [Moles/Vol] 103 mmol/L 98 - 10 7 mmol/L [facility] Creatinine W/GFR Point of Ca reon 06-28-2022 Creatinine [Mass/Vol] 0.93 mg/dL 0.51 - 1.19 mg/dL [facility] eGFR, POC mL/min/1.73 m2 [facility] Comment on above: Effective Jun 13, 2022 [...] 1.56 mmol/L High 0.56 - 1.39 mmol/L [facility] No Panel Informationon 06-28 Interpretation and review of laboratory results Abnormal [facility] POC Glucose Fingerstickon Glucose [Mass/Vol] 135 mg/dL High 65 - 105 mg/dL [facility] Interpretation and review of laboratory results Abnormal [facility] POCT Glucoseon 06-28-2022 Glucose [Mass/Vol] 147 mg/dL High 74 - 100 mg/dL [facility] POCT urea (BUN)on 06-28-2022 Urea nitrogen [Mass/Vol] 20 mg/dL 8 - 26 mg/dL [facility] POTASSIUM (POC)on 06-28-2022 Potassium [Moles/Vol] 3.7 mmol/L 3.5 - 4.5 mmol/L [facility] SODIUM (POC)on 06-28-2022 Sodium [Moles/Vol] 141 mmol/L 138 - 146 mmol/L [facility] PROF CHEM 8 (BAS METB)on Anion gap [Moles/Vol] 9.0 mmol/L Normal [facility] Comment on above: Performed By: #### B MP ####[facility] [address] [id number]. Omid Bowden Calcium [Mass/Vol] 9.0 mg/dL Normal 8.5-10.1 [facility] Comment on above: Performed By: #### B MP ####[facility] [address] [address]Dr. Omid Bowden Chloride [Moles/Vol] 98 mmol/L Normal 98-107 [facility] Comment on above: Performed By: #### B MP ####[facility] [address] [place], [place] [address]Dr. Omid Bowden CO2 [Moles/Vol] 33.2 mmol/L Critically high 21.0-32.0 [facility] Comment on above: Performed By: #### B MP ####[facility] [address] [address]Dr. Omid Bowden Creatinine [Mass/Vol] 1.32 mg/dL Critically high 0.55-1.02 [facility] Comment on above: Performed By: #### B MP ####[facility] [address] [address]Dr. Omid Bowden EGFR-AF BERMUDIAN 47 mL/min/1.73m2 Critically low >=60 [facility] Comment on above: Performed By: #### B MP ####[facility] [address] [address]Dr. Omid Bowden EGFR-NON AF BERMUDIAN 39 mL/min/1.73m2 Critically low >=60 [facility] Comment on above: Performed By: #### B MP ####[facility] [address] [id number]. Omid Bowden Glucose [Mass/Vol] 220 mg/dL Critically high 74-106 T [facility] Comment on above: Performed By: #### B MP ####[facility] [address] [id number]. Omid Bowden Potassium [Moles/Vol] 3.2 mmol/L Critically low 3.5-5.1 [facility] Comment on above: Performed By: #### B MP ####[facility] [address] [id number]. Omid Bowden Sodium [Moles/Vol] 137 mmol/L Normal 136-145 [facility] Comment on above: Performed By: #### B MP ####[facility] [address] [address]Dr. Omid Bowden Urea nitrogen [Mass/Vol] 31.0 mg/dL Critically high 7.0-18.0 [facility] Comment on above: Performed By: #### B MP ####[facility] [address] [address]Dr. Omid Bowden Urea nitrogen/Creatinine [Mass ratio] 23.5 mg/mg Normal [facility] Comment on above: Performed By: #### B MP ####[facility] [address] [id number]. Omid Bowden ECHOCARDIO M/2D COMPLETEon 0 04-12-2022 ECHOCARDIO M/2D COMPLETE Patient: HARMAN MCLEOD Exam Date: 04/12/2022 : 1940 Gender:F Ordering : [facility] Admission #: [id number] Family : Order #: [id number] CLICK HERE TO VIEW EXAM ECHOCARDIOGRAM REPORT [...] Keyes M.D. on 04/12/2022 at 19:15 Normal [facility] PROF CHEM 8 (BAS METB)on Anion gap [Moles/Vol] 12.4 mmol/L Normal [facility] Comment on above: Performed By: #### B MP ####[facility] [address] [address]Dr. Omid Bowden Calcium [Mass/Vol] 9.1 mg/dL Normal 8.5-10.1 [facility] Comment on above: Performed By: #### B MP ####[facility] [address] [address]Dr. Omid Bowden Chloride [Moles/Vol] 100 mmol/L Normal 98-107 [facility] Comment on above: Performed By: #### B MP ####[facility] [address] [address]Dr. Omid Bowden CO2 [Moles/Vol] 33.0 mmol/L Critically high 21.0-32.0 [facility] Comment on above: Performed By: #### B MP ####[facility] [address] [id number]. Omid Bowden Creatinine [Mass/Vol] 1.15 mg/dL Critically high 0.55-1.02 [facility] Comment on above: Performed By: #### B MP ####[facility] [address] [address]Dr. Omid Bowden EGFR-AF BERMUDIAN 55 mL/min/1.73m2 Critically low >=60 [facility] Comment on above: Performed By: #### B MP ####[facility] [address] [place], [place] [address]Dr. Omid Bowden EGFR-NON AF BERMUDIAN 46 mL/min/1.73m2 Critically low >=60 [facility] Comment on above: Performed By: #### B MP ####[facility] [address] [place], [place] [address]Dr. Omid Bowden Glucose [Mass/Vol] 167 mg/dL Critically high 74-106 [facility] Comment on above: Performed By: #### B MP ####[facility] [address] [place], [place] [address]Dr. Omid Bowden Potassium [Moles/Vol] 3.4 mmol/L Critically low 3.5-5.1 [facility] Comment on above: Performed By: #### B MP ####[facility] [address] [place], [place] [address]Dr. Aixamegan Bowden Sodium [Moles/Vol] 142 mmol/L Normal 136-145 [facility] Comment on above: Performed By: #### B MP ####[facility] [address] [place], [place] [address]Dr. Omid Bowden Urea nitrogen [Mass/Vol] 23.0 mg/dL Critically high 7.0-18.0 [facility] Comment on above: Performed By: #### B MP ####[facility] [address] [place], [place] [address]Dr. Omid Bowden Urea nitrogen/Creatinine [Mass ratio] 20.0 mg/mg Normal [facility] Comment on above: Performed By: #### B MP ####[facility] [address] [address]Dr. Omid Bowden SYMPTOMATIC COVID-19 ANTIGEN on 03-16-2022 EUA Statement SEE BELOW Normal [facility] Comment on above: Result Comment: This [...] Performed By: #### L IPID, BMP #### [facility] [address] [place] [address] Dr. Omid Bowden SARS-CoV-2 (COVID-19) RNA MARII+probe Ql (Unsp spec) Positive Critically abnormal NEGATIVE [facility] Comment on above: Performed By: #### L IPID, BMP #### [facility] [address] [place] [address] Dr. Omid Bowden HEMOGLOBINon 03-15-2022 Hemoglobin (Bld) [Mass/Vol] 12.3 g/dL Normal 12.0-16.0 [facility] Comment on above: Performed By: #### H GB #### [facility] [address] [place] [address] Dr. Omid Bowden BNPon 02-15-2022 Natriuretic peptide B (Bld) [Mass/Vol] 598.0 pg/mL Normal <=1,800.0 [facility] Comment on above: Performed By: #### L IPID, BMP #### [facility] [address] [place] [address] Dr. Omid Bowden PROF CHEM 8 (BAS METB)on Anion gap [Moles/Vol] 11.9 mmol/L Normal [facility] Comment on above: Performed By: #### L IPID, BMP #### [facility] [address] [place] [address] Dr. Omid Bowden Calcium [Mass/Vol] 9.1 mg/dL Normal 8.5-10.1 [facility] Comment on above: Performed By: #### L IPID, BMP #### [facility] [address] [place] [address] Dr. Omid Bowden Chloride [Moles/Vol] 98 mmol/L Normal 98-107 [facility] Comment on above: Performed By: #### L IPID, BMP #### [facility] [address] [place] [address] Dr. Omid Bowden CO2 [Moles/Vol] 33.2 mmol/L Critically high 21.0-32.0 [facility] Comment on above: Performed By: #### L IPID, BMP #### [facility] [address] [place] [address] Dr. Omid Bowden Creatinine [Mass/Vol] 1.28 mg/dL Critically high 0.55-1.02 [facility] Comment on above: Performed By: #### L IPID, BMP #### [facility] [address] [place] [address] Dr. Omid Bowden EGFR-AF BERMUDIAN 49 mL/min/1.73m2 Critically low >=60 [facility] Comment on above: Performed By: #### L IPID, BMP #### [facility] [address] [place] [address] Dr. Omid Bowden EGFR-NON AF BERMUDIAN 40 mL/min/1.73m2 Critically low >=60 [facility] Comment on above: Performed By: #### L IPID, BMP #### [facility] [address] [place] [address] Dr. Omid Bowden Glucose [Mass/Vol] 182 mg/dL Critically high 74-106 T [facility] Comment on above: Performed By: #### L IPID, BMP #### [facility] [address] [address] [address] Omid Bowden Potassium [Moles/Vol] 3.1 mmol/L Critically low 3.5-5.1 [facility] Comment on above: Performed By: #### L IPID, BMP #### [facility] [address] [address] [address] Omid Bowden Sodium [Moles/Vol] 140 mmol/L Normal 136-145 [facility] Comment on above: Performed By: #### L IPID, BMP #### [facility] [address] [address] [address] Omid Bowden Urea nitrogen [Mass/Vol] 30.0 mg/dL Critically high 7.0-18.0 [facility] Comment on above: Performed By: #### L IPID, BMP #### [facility] [address] [address] [address] Omid Bowden Urea nitrogen/Creatinine [Mass ratio] 23.4 mg/mg Normal [facility] Comment on above: Performed By: #### L IPID, BMP #### [facility] [address] [address] [address] Omid Bowden XR CHEST 2 Von [...] by: ALFONSO GEORGE Date: 2022-02-09 11:53 Normal [facility] No Panel Informationon 12-13 [employer] POCT Glucoseon 12-13-2021 Glucose [Mass/Vol] 196 mg/dL High 74 - 100 mg/dL [facility] Interpretation and review of laboratory results Abnormal [facility] POTASSIUM (POC)on 12-13-2021 Potassium [Moles/Vol] 3.7 mmol/L 3.5 - 4.5 mmol/L [employer] TYPE AND SCREENon 12-10-2021 ABO/Rh Positive [employer] Arm Band Number [id number] [facility] Expiration Date 12/16/2021,2359 [employer] EKG 12 leadOrdered By: Dennis Garcia on 12-07-2021 Atrial Rate 66 BPM [employer] Work Phone: P [place] 67 degrees [employer] Work Phone: P-R Interval 126 ms [employer] Work Phone: Q-T Interval 466 ms [employer] Work Phone: QRS Duration 150 ms [employer] Work Phone: QTc Calculation (Bazett) 488 ms [employer] Work Phone: R [place] 32 degrees [employer] Work Phone: T [place] 161 degrees [employer] Work Phone: Ventricular Rate 66 BPM [employer] Work Phone: [employer] Work Phone: EKG 12 leadon 12-07-2021 Sinus rhythm with Premature atrial complexes Left bundle branch block Abnormal ECG When compared with ECG of 12-MAY-2021 12:39, T wave inversion now evident in Inferior leads [facility] Dennis Sorensen MD - 12/07/2021 Sinus rhythm with Premature atrial complexes Left bundle branch block Abnormal ECG When compared with ECG of 12-MAY-2021 12:39, T wave inversion now evident in Inferior leads [employer] Work Phone: CBC auto differentialon 11-10 Absolute Eos # 0.13 [facility] th Absolute Immature Granulocyte 0.12 [employer] Absolute [facility] # 3.18 [facility] Smyth # 1.22 High [facility] Basophils (Bld) [#/Vol] 0.05 10*3/uL [employer] Basophils/100 WBC (Bld) 0 % 0 - 2 % [facility] Eosinophils/100 WBC (Bld) 1 % 1 - 4 % [facility] Hematocrit (Bld) [Volume fraction] 38.4 % 36.3 - 47.1 % [facility] Hemoglobin.gastrointes tinal spec 1 Ql (Stl) 12.2 g/dL 11.9 - 15.1 g/dL [facility] Immature granulocytes/100 WBC (Bld) 1 % High 0 [facility] Interpretation and review of laboratory results Abnormal [facility] Lymphocytes/100 WBC (Bld) 25 % 24 - 43 % [facility] MCH (RBC) [Entitic mass] 29.9 pg 25.2 - 33.5 pg [facility] MCHC (RBC) [Mass/Vol] 31.8 g/dL 28.4 - 34.8 g/dL [facility] MCV (RBC) [Entitic vol] 94.1 fL 82.6 - 102.9 fL [facility] Monocytes/100 WBC (Bld) 10 % 3 - 12 % [facility] NRBC Automated 0.0 0.0 per 100 WBC [facility] Platelet distribution width (Bld) [Ratio] 14.5 % High 11.8 - 14.4 % [facility] Platelet mean volume (Bld) [Entitic vol] 10.1 fL 8.1 - 13.5 fL [facility] Platelets (Bld) [#/Vol] 266 10*3/uL [facility] RBC (Bld) [#/Vol] 4.08 10*6/uL 3.95 - 5.1 1 m/uL [facility] RBC (Bld) [#/Vol] ANISOCYTOSIS PRESENT [facility] Segmented neutrophils/100 WBC (Bld) 63 % 36 - 65 % [facility] Segs Absolute 7.88 [facility] W[facility] (Bld) [#/Vol] 12.6 10*3/uL High [facility] Comprehensive Metabolic Pane l w/ Reflex to MGon 12-06-2021 Albumin [Mass/Vol] 3.7 g/dL 3.5 - 5.2 g/dL [facility] Albumin/Globulin [Mass ratio] 1.1 {ratio} [facility] ALP (Bld) [Catalytic activity/Vol] 93 U/L 35 - 104 U/L [facility] ALT [Catalytic activity/Vol] 12 U/L 5 - 33 U/L [facility] Anion gap [Moles/Vol] 14 mmol/L 9 - 17 mmol/L [facility] AST [Catalytic activity/Vol] 12 U/L <32 [facility] Bilirubin [Mass/Vol] 0.25 mg/dL Low 0.3 - 1 .2 mg/dL [facility] Calcium [Mass/Vol] 9.1 mg/dL 8.6 - 10. 4 mg/dL [facility] Chloride [Moles/Vol] 95 mmol/L Low 98 - 10 7 mmol/L [facility] CO2 [Moles/Vol] 30 mmol/L 20 - 31 mmol/L [facility] Creatinine [Mass/Vol] 1.07 mg/dL High 0.50 - 0.90 mg/dL [facility] Free PSA/Total PSA [Mass fraction] 7.2 g/dL 6.4 - 8.3 g/dL [facility] GFR 60 mL/min Low >60 [facility] GFR Non- 49 mL/min Low >60 [facility] GFR/1.73 sq M.predicted MDRD (S/P/Bld) [Vol rate/Area] [facility] Comment on above: Average GFR for 70 o r more years old: 75 mL/min/1.73sq m Chronic Kidney Disease: <60 mL/min/1.73sq m Kidney failure: <15 mL/min/1.73sq m eGFR calculated using average adult body mass. Additional eGFR calculator available at: http://www.[employer]/multiple_crcl_2012.htm Glucose [Mass/Vol] 188 mg/dL High 70 - 99 mg/dL [facility] Interpretation and review of laboratory results Abnormal [facility] Potassium [Moles/Vol] 3.3 mmol/L Low 3.7 - 5.3 mmol/L [facility] Sodium [Moles/Vol] 139 mmol/L 135 - 144 mmol/L [facility] Urea nitrogen (BldV) [Mass/Vol] 22 mg/dL 8 - 23 mg/dL [facility] Magnesiumon 12-06-2021 Magnesium [Mass/Vol] 1.6 mg/dL 1.6 - 2 .6 mg/dL [facility] No Panel Informationon 12-06 No acute process. MHPN RIS CONSOLIDATED EXAMINATION: TWO XRAY VIEWS OF [...] The osseous structures are without acute process. MHPN RIS CONSOLIDATED Kael Freeman MD - 12/06/2021 [...] without acute process. IMPRESSION: No acute process. [employer] Phone: Radiology Study observation (narrative) [employer] Phone: No Panel InformationOrdered By: Kael Freeman on 12-06-2021 [employer] Phone: Creatinine W/GFR Point of Ca reOrdered By: Kin Abarca on 06-15-2021 Creatinine [Mass/Vol] 0.89 mg/dL 0.51 - 1.19 mg/dL [employer] Phone: GFR Non- >60 >60 mL/min [employer] Phone: GFR/1.73 sq M.predicted MDRD (S/P/Bld) [Vol rate/Area] mL/min/{1.73_m2} >60 mL/min [employer] Phone: GFR/1.73 sq M.predicted MDRD (S/P/Bld) [Vol rate/Area] [employer] Phone: Comment on above: Average GFR for 70 o r more years old: 75 mL/min/1.73sq m Chronic Kidney Disease: <60 mL/min/1.73sq m Kidney failure: <15 mL/min/1.73sq m eGFR calculated using average adult body mass. Additional eGFR calculator available at: http://www.[employer]/multiple_crcl_2012.htm No Panel InformationOrdered By: Kin Abarca on 06-15-2021 [employer] Phone: POC Glucose FingerstickOrder ed By: Kin Abarca on 06-15-2021 Glucose [Mass/Vol] 163 mg/dL High 65 - 105 mg/dL [employer] Phone: Interpretation and review of laboratory results Abnormal [employer] Phone: [employer] Phone: POCT GlucoseOrdered By: Kin Abarca on 06-15-2021 Glucose [Mass/Vol] 186 mg/dL High 74 - 100 mg/dL [employer] Phone: Interpretation and review of laboratory results Abnormal [employer] Phone: POTASSIUM (POC)Ordered By: Yuriy Abarca on 06-15-2021 Potassium [Moles/Vol] 4.5 mmol/L 3.5 - 4.5 mmol/L [employer] Phone: EKG 12 leadOrdered By: Antoni Burks on 05-13-2021 Atrial Rate 67 BPM [employer] Phone: P [place] 58 degrees [employer] Phone: P-R Interval 130 ms [employer] Phone: Q-T Interval 504 ms [employer] Phone: QRS Duration 144 ms [employer] Phone: QTc Calculation (Bazett) 532 ms [employer] Phone: R [place] 20 degrees [employer] Phone: T [place] 117 degrees [employer] Phone: Ventricular Rate 67 BPM [employer] Phone: Sinus rhythm with Premature atrial complexes Left bundle branch block Abnormal ECG No previous ECGs available [employer] Phone: Virgilio, Mhpn Incoming E kg Results From [employer] - 05/13/2021 1:30 PM EDT Sinus rhythm with Premature atrial complexes Left bundle branch block Abnormal ECG No previous ECGs available [employer] Phone: [employer] Phone: Basic Metabolic Panel w/ Ref alexis to MGOrdered By: Latonia Burks on 05-12-2021 Anion gap [Moles/Vol] 13 mmol/L 9 - 17 mmol/L [employer] Phone: Calcium [Mass/Vol] 9.4 mg/dL 8.6 - 10. 4 mg/dL [employer] Phone: Chloride [Moles/Vol] 102 mmol/L 98 - 10 7 mmol/L [employer] Phone: CO2 [Moles/Vol] 28 mmol/L 20 - 31 mmol/L [employer] Phone: Creatinine [Mass/Vol] 0.94 mg/dL High 0.50 - 0.90 mg/dL [employer] Phone: GFR >60 >60 mL/min [employer] Phone: GFR Non- 58 mL/min Low >60 [employer] Phone: GFR/1.73 sq M.predicted MDRD (S/P/Bld) [Vol rate/Area] [employer] Phone: Comment on above: Average GFR for 70 o r more years old: 75 mL/min/1.73sq m Chronic Kidney Disease: <60 mL/min/1.73sq m Kidney failure: <15 mL/min/1.73sq m eGFR calculated using average adult body mass. Additional eGFR calculator available at: http://www.[employer]/multiple_crcl_2012.htm GFR/1.73 sq M.predicted MDRD (S/P/Bld) [Vol rate/Area] NOT REPORTED [employer] Phone: Glucose [Mass/Vol] 119 mg/dL High 70 - 99 mg/dL [employer] Phone: Interpretation and review of laboratory results Abnormal [employer] Phone: Potassium [Moles/Vol] 4.0 mmol/L 3.7 - 5.3 mmol/L [employer] Phone: Sodium [Moles/Vol] 143 mmol/L 135 - 144 mmol/L [employer] Phone: Urea nitrogen (BldV) [Mass/Vol] 18 mg/dL 8 - 23 mg/dL [employer] Phone: Urea nitrogen/Creatinine (Bld) [Mass ratio] NOT REPORTED [employer] Phone: [employer] Phone: CBC auto differentialOrdered By: Latonia Burks on 05-12-2021 Absolute Eos # 0.26 [employer] [facility] Work Phone: Absolute Immature Granulocyte 0.04 [employer] Work Phone: Absolute Lymph # 3.26 [employer] Work Phone: Absolute Smyth # 0.84 [employer] [facility] Work Phone: Basophils (Bld) [#/Vol] 0.05 10*3/uL [employer] Work Phone: Basophils/100 WBC (Bld) 1 % 0 - 2 % [employer] Phone: Differential Type NOT REPORTED [employer] Phone: Eosinophils/100 WBC (Bld) 3 % 1 - 4 % [employer] Phone: Hematocrit (Bld) [Volume fraction] 36.9 % 36.3 - 47.1 % [employer] Phone: Hemoglobin.gastrointes tinal spec 1 Ql (Stl) 11.2 g/dL Low 11.9 - 15.1 g/dL [employer] Phone: Immature granulocytes/100 WBC (Bld) 0 % 0 [employer] Phone: Interpretation and review of laboratory results Abnormal [employer] Phone: Lymphocytes/100 WBC (Bld) 32 % 24 - 43 % [employer] Phone: MCH (RBC) [Entitic mass] 28.3 pg 25.2 - 33.5 pg [employer] Phone: MCHC (RBC) [Mass/Vol] 30.4 g/dL 28.4 - 34.8 g/dL [employer] Phone: MCV (RBC) [Entitic vol] 93.2 fL 82.6 - 102.9 fL [employer] Phone: Monocytes/100 WBC (Bld) 8 % 3 - 12 % [employer] Phone: NRBC Automated 0.0 0.0 per 100 WBC [employer] Phone: Platelet distribution width (Bld) [Ratio] 13.8 % 11.8 - 14.4 % [employer] Phone: Platelet Estimate NOT REPORTED [employer] Phone: Platelet mean volume (Bld) [Entitic vol] 9.5 fL 8.1 - 13.5 fL [employer] Phone: Platelets (Bld) [#/Vol] 310 10*3/uL [employer] Phone: RBC (Bld) [#/Vol] 3.96 10*6/uL 3.95 - 5.1 1 m/uL [employer] Work Phone: RBC (Bld) [#/Vol] NOT REPORTED [employer] Phone: Segmented neutrophils/100 WBC (Bld) 56 % 36 - 65 % [employer] Work Phone: Segs Absolute 5.70 [employer] Work Phone: WBC (Bld) [#/Vol] 10.2 10*3/uL [employer] Phone: WBC (Bld) [#/Vol] NOT REPORTED [employer] Phone: [employer] Phone: XR CHEST (2 VW)Ordered By: Joanie Burks on 05-12-2021 Senescent changes compatible with the age of the patient. No evidence of acute cardiopulmonary process. [employer] Phone: EXAMINATION: TWO XRA Y VIEWS OF [...] spine and visualized portions of the shoulders. [employer] Phone: Virgilio, Mhpn Incoming Radiant Results From [employer] - 05/12/2021 2:48 PM EDT EXAMINATION: TWO [...] patient. No evidence of acute cardiopulmonary process. [employer] Phone: [employer] Phone: Cardiovascular Lab Reporton 08-21-2020 Cardiovascular Lab Report [facility] Patient Name: Mychal [facility] Berna MR #: [id number] Department of Physician: Jose Maria Keyes M.D. Division of Service Date: 08/20/2020 Cardiology Birthdate: 1940 Adult Cardiovascular Room #: [address] [address] Cardiovascular Laboratory Report INDICATION: The patient is [...] signed informed consent. She was brought to construction laborer in a fasting state. The procedure was performed under conscious sedation. A transesophageal echocardiogram was performed by Dr. Marisol Khoury at baseline. Please refer to his dictation for details. The appendage measured a maximum of 16 mm in terms of ostial width. Using ultrasound guidance and micropuncture technique, access was obtained in the right common femoral vein and a 6-Yakut x 11 cm sheath was placed preclosure where the 6-Yakut ProGlide device was performed followed by advancement [...] was exchanged over that wire to the 14-Yakut Watchman access sheath, which was advanced to the left atrial cavity with no issues. The 6-Yakut angled pigtail catheter was advanced over the [...] Trans: (more content not included)... Normal [facility] TYPE AND CROSSMATCHon 2019 ABO INTERPRETATION A [facility] Comment on above: Performed By: #### [id number] #### [facility] [address] [place] [address], [facility] RH INTERPRETATION Positive Normal [facility] Comment on above: Performed By: #### [id number] #### [facility] [address] [place] [address], [facility] Vital Signs Date Time Vital Sign Value Performing Clinician Facility 06-20-2024 10: Body height 152.4 cm Peyman Hensley DPM Work Phone: [facility] 06-20-2024 10: Body mass index (BMI) [Ratio] 28.32 kg/m2 Peyman Hensley DPM Work Phone: [facility] 06-20-2024 10:14 Body weight 65.77 kg Peymna Hensley DPM Work Phone: [facility] 06-20-2024 10: Respiratory rate 18 /min Peyman Hensley DPM Work Phone: [facility] 05-01-2024 10:18-0400 Body height 149.86 cm MD Mateus Perry Work Phone: [facility] 05-01-2024 10:18-0400 Body mass index (BMI) [Ratio] 30.2 kg/m2 MD Mateus Perry Work Phone: [facility] 05-01-2024 10:18-0400 Body temperature 97.8 [degF] MD Mateus Perry Work Phone: [facility] 05-01-2024 10:18-0400 Body weight 68.03 kg MD Mateus Perry Work Phone: [facility] 05-01-2024 10:18-0400 Diastolic blood pressure 72 mm[Hg] MD Mateus Perry Work Phone: [facility] 05-01-2024 10:18-0400 Heart rate 80 /min MD Mateus Perry Work Phone: [facility] 05-01-2024 10:18-0400 Respiratory rate 16 /min MD Mateus Perry Work Phone: [facility] 05-01-2024 10:18-0400 SaO2% (BldA) [Mass fraction] 98 % MD Mateus Perry Work Phone: [facility] 05-01-2024 10:18-0400 Systolic blood pressure 118 mm[Hg] MD Mateus Perry Work Phone: [facility] 04-24-2024 11:13-0400 Body height 149.86 cm MD Mateus Perry Work Phone: [facility] 04-24-2024 11:13-0400 Body mass index (BMI) [Ratio] 36.3 kg/m2 MD Mateus Perry Work Phone: [facility] 04-24-2024 11:13-0400 Body weight 81.64 kg MD Mateus Perry Work Phone: [facility] 04-24-2024 11:06-0400 Body temperature 98.8 [degF] MD Mateus Perry Work Phone: [facility] 04-24-2024 11:06-0400 Diastolic blood pressure 75 mm[Hg] MD Mateus Perry Work Phone: [facility] 04-24-2024 11:06-0400 Heart rate 97 /min MD Mateus Perry Work Phone: [facility] 04-24-2024 11:06-0400 Respiratory rate 20 /min MD Mateus Perry Work Phone: [facility] 04-24-2024 11:06-0400 Systolic blood pressure 118 mm[Hg] MD Mateus Perry Work Phone: [facility] 04-10-2024 10:30-0400 Body height 149.86 cm MD Mateus Perry Work Phone: [facility] 04-10-2024 10:30-0400 Body mass index (BMI) [Ratio] 36.3 kg/m2 MD Mateus Perry Work Phone: [facility] 04-10-2024 10:30-0400 Body weight 81.64 kg MD Mateus Perry Work Phone: [facility] 03-26-2024 09:51-0400 Body height 149.86 cm MD Mateus Perry Work Phone: [facility] 03-26-2024 09:51-0400 Body mass index (BMI) [Ratio] 36.3 kg/m2 MD Mateus Perry Work Phone: [facility] 03-26-2024 09:51-0400 Body weight 81.64 kg MD Mateus Perry Work Phone: [facility] 03-26-2024 09:36-0400 Body temperature 97.3 [degF] MD Mateus Perry Work Phone: [facility] 03-26-2024 09:36-0400 Diastolic blood pressure 61 mm[Hg] MD Mateus Perry Work Phone: [facility] 03-26-2024 09:36-0400 Heart rate 86 /min MD Mateus Perry Work Phone: [facility] 03-26-2024 09:36-0400 Respiratory rate 18 /min MD Mateus Perry Work Phone: [facility] 03-26-2024 09:36-0400 Systolic blood pressure 128 mm[Hg] MD Mateus Perry Work Phone: [facility] 06-20-2023 15:29-0400 Body height 154.9 cm Winnie Ramirez PA-C Work Phone: [facility] 06-20-2023 15:29-0400 Body temperature 97.39 [degF] Winnie Ramirez PA-C Work Phone: [facility] 06-20-2023 15:29-0400 Body weight 84.64 kg Winnie Ramirez PA-C Work Phone: [facility] 06-20-2023 15:29-0400 Diastolic blood pressure 55 mm[Hg] Winnie Ramirez PA-C Work Phone: [facility] 06-20-2023 15:29-0400 Heart rate 72 /min Winnie Ramirez PA-C Work Phone: [facility] 06-20-2023 15:29-0400 Respiratory rate 16 /min Winnie Ramirez PA-C Work Phone: [facility] 06-20-2023 15:29-0400 SaO2% (BldA) [Mass fraction] 96 % Winnie Ramirez PA-C Work Phone: [facility] 06-20-2023 15:29-0400 Systolic blood pressure 138 mm[Hg] Winnie Ramirez PA-C Work Phone: [facility] 06-01-2023 08:45-0400 Body height 154.94 cm Christiano Gonzales Other [employer] Other 06-01-2023 08:45-0400 Body mass index (BMI) [Ratio] 34.57 kg/m2 Christiano Gonzales Other [employer] Other 06-01-2023 08:45-0400 Body temperature 97.8 [degF] Christiano Gonzales Other [employer] Other 06-01-2023 08:45-0400 Body weight 83.01 kg Christiano Gonzales Other [employer] Other 06-01-2023 08:45-0400 Diastolic blood pressure 72 mm[Hg] Christiano Gonzales Other [employer] Other 06-01-2023 08:45-0400 SaO2% (BldA) [Mass fraction] 93 % Christiano Gonzales Other [employer] Other 06-01-2023 08:45-0400 Systolic blood pressure 130 mm[Hg] Christiano Gonzales Other [employer] Other 03-09-2023 08:45-0400 Body height 154.94 cm Millie Storm Other [employer] Other 03-09-2023 08:45-0400 Body mass index (BMI) [Ratio] 34.57 kg/m2 Millie Storm Other [employer] Other 03-09-2023 08:45-0400 Body temperature 96.8 [degF] Millie Storm Other [employer] Other 03-09-2023 08:45-0400 Body weight 83.01 kg Millie Storm Other [employer] Other 03-09-2023 08:45-0400 Diastolic blood pressure 56 mm[Hg] Millie Storm Other [employer] Other 03-09-2023 08:45-0400 SaO2% (BldA) [Mass fraction] 97 % Millie Storm Other [employer] Other 03-09-2023 08:45-0400 Systolic blood pressure 118 mm[Hg] Millie Storm Other [employer] Other 02-14-2023 10:19-0400 Body height 154.9 cm Wallace Stone MD Work Phone: [facility] 02-14-2023 10:19-0400 Body temperature 97.39 [degF] Wallace Stone MD Work Phone: [facility] 02-14-2023 10:19-0400 Body weight 84.46 kg Wallace Stone MD Work Phone: [facility] 02-14-2023 10:19-0400 Diastolic blood pressure 90 mm[Hg] Wallace Stone MD Work Phone: [facility] 02-14-2023 10:19-0400 Heart rate 102 /min Wallace Stone MD Work Phone: [facility] 02-14-2023 10:19-0400 Respiratory rate 16 /min Wallace Stone MD Work Phone: [facility] 02-14-2023 10:19-0400 SaO2% (BldA) [Mass fraction] 95 % Wallace Stone MD Work Phone: [facility] 02-14-2023 10:19-0400 Systolic blood pressure 151 mm[Hg] Wallace Stone MD Work Phone: [facility] 12-07-2022 14:00-0400 Body height 154.94 cm Millie Storm Other [employer] Other 12-07-2022 14:00-0400 Body mass index (BMI) [Ratio] 35.71 kg/m2 Millie Storm Other [employer] Other 12-07-2022 14:00-0400 Body temperature 97.6 [degF] Millie Storm Other [employer] Other 12-07-2022 14:00-0400 Body weight 85.73 kg Millie Storm Other [employer] Other 12-07-2022 14:00-0400 Diastolic blood pressure 68 mm[Hg] Millie Storm Other [employer] Other 12-07-2022 14:00-0400 SaO2% (BldA) [Mass fraction] 93 % Millie Storm Other [employer] Other 12-07-2022 14:00-0400 Systolic blood pressure 116 mm[Hg] Millie Storm Other [employer] Other 11-29-2022 11:53-0400 Diastolic blood pressure 54 mm[Hg] MD Mateus Perry Work Phone: [facility] 11-29-2022 11:53-0400 Heart rate 67 /min MD Mateus Perry Work Phone: [facility] 11-29-2022 11:53-0400 Respiratory rate 16 /min MD Mateus Perry Work Phone: [facility] 11-29-2022 11:53-0400 SaO2% (BldA) [Mass fraction] 94 % MD Mateus Perry Work Phone: [facility] 11-29-2022 11:53-0400 Systolic blood pressure 141 mm[Hg] MD Mateus Perry Work Phone: [facility] 11-29-2022 09:13-0400 Body height 154.94 cm MD Mateus Perry Work Phone: [facility] 11-29-2022 09:13-0400 Body weight 81.64 kg MD Mateus Perry Work Phone: [facility] 11-23-2022 11:00-0400 Body height 154.94 cm Christiano Gonzales Other [employer] [facility] [employer] Other 11-23-2022 11:00-0400 Body temperature 97.8 [degF] Christiano Gonzales Other [employer] Other 11-23-2022 11:00-0400 Diastolic blood pressure 62 mm[Hg] Christiano Gonzales Other [employer] Other 11-23-2022 11:00-0400 SaO2% (BldA) [Mass fraction] 96 % Christiano Gonzales Other [employer] Other 11-23-2022 11:00-0400 Systolic blood pressure 110 mm[Hg] Christiano Gonzales Other [employer] Other 11-09-2022 13:44-0500 Body height 154.9 cm Wallace Stone MD Work Phone: [facility] 11-09-2022 13:44-0500 Body temperature 97.11 [degF] Wallace Stone MD Work Phone: [facility] 11-09-2022 13:44-0500 Body weight 84.73 kg Wallace Stone MD Work Phone: [facility] 11-09-2022 13:44-0500 Diastolic blood pressure 72 mm[Hg] Wallace Stone MD Work Phone: [facility] 11-09-2022 13:44-0500 Heart rate 66 /min Wallace Stone MD Work Phone: [facility] 11-09-2022 13:44-0500 Respiratory rate 18 /min Wallace Stone MD Work Phone: [facility] 11-09-2022 13:44-0500 SaO2% (BldA) [Mass fraction] 100 % Wallace Stone MD Work Phone: [facility] 11-09-2022 13:44-0500 Systolic blood pressure 142 mm[Hg] Wallace Stone MD Work Phone: [facility] 09-22-2022 11:24-0500 Body height 154.9 cm Wallace Stone MD Work Phone: [facility] 09-22-2022 11:24-0500 Body temperature 97.81 [degF] Wallace Stone MD Work Phone: [facility] 09-22-2022 11:24-0500 Body weight 84.82 kg Wallace Stone MD Work Phone: [facility] 09-22-2022 11:24-0500 Diastolic blood pressure 64 mm[Hg] Wallace Stone MD Work Phone: [facility] 09-22-2022 11:24-0500 Heart rate 70 /min Wallace Stone MD Work Phone: [facility] 09-22-2022 11:24-0500 Respiratory rate 16 /min Wallace Stone MD Work Phone: [facility] 09-22-2022 11:24-0500 SaO2% (BldA) [Mass fraction] 94 % Wallace Stone MD Work Phone: [facility] 09-22-2022 11:24-0500 Systolic blood pressure 137 mm[Hg] Wallace Stone MD Work Phone: [facility] 09-09-2022 15:06-0500 Blood Pressure Location Iliana DORANL [facility] [place] 09-09-2022 15:06-0500 Diastolic blood pressure 68 mm[Hg] Iliana NILL [facility] 09-09-2022 15:06-0500 Heart rate 68 /min Iliana NILL [facility] [place] 09-09-2022 15:06-0500 Respiratory rate 16 /min Iliana DORANL [facility] 09-09-2022 15:06-0500 Systolic blood pressure 130 mm[Hg] Iliana DORANL [facility] 06-28-2022 12:00-0400 SaO2% (BldA) [Mass fraction] 95 % Emma Plunkett MD Work Phone: [facility] 06-28-2022 11:50-0400 Body temperature 97.3 [degF] Emma Plunkett MD Work Phone: [facility] 06-28-2022 11:50-0400 Diastolic blood pressure 50 mm[Hg] Emma Plunkett MD Work Phone: [facility] 06-28-2022 11:50-0400 Heart rate 69 /min Emma Plunkett MD Work Phone: [facility] 06-28-2022 11:50-0400 Respiratory rate 16 /min Emma Plunkett MD Work Phone: [facility] 06-28-2022 11:50-0400 Systolic blood pressure 115 mm[Hg] Emma Plunkett MD Work Phone: [facility] 06-28-2022 07:36-0400 Body height 154.9 cm Emma Plunkett MD Work Phone: [facility] 06-28-2022 07:36-0400 Body mass index (BMI) [Ratio] 34.58 kg/m2 Emma Plunkett MD Work Phone: [facility] 06-28-2022 07:36-0400 Body weight 83.01 kg Emma Plunkett MD Work Phone: [facility] 12-13-2021 15:45-0400 Body temperature 97 [degF] Emma Plunkett MD Work Phone: [facility] 12-13-2021 15:45-0400 Diastolic blood pressure 96 mm[Hg] Emma Plunkett MD Work Phone: [facility] 12-13-2021 15:45-0400 Heart rate 65 /min Emma Plunkett MD Work Phone: [facility] 12-13-2021 15:45-0400 Respiratory rate 14 /min Emma Plunkett MD Work Phone: [facility] 12-13-2021 15:45-0400 SaO2% (BldA) [Mass fraction] 94 % Emma Plunkett MD Work Phone: [facility] 12-13-2021 15:45-0400 Systolic blood pressure 113 mm[Hg] Emma Plunkett MD Work Phone: [facility] 12-13-2021 09:46-0400 Body height 154.9 cm Emma Plunkett MD Work Phone: [facility] [employer] 12-13-2021 09:46-0400 Body mass index (BMI) [Ratio] 36.09 kg/m2 Emma Plunkett MD Work Phone: [facility] 12-13-2021 09:46-0400 Body weight 86.64 kg mEma Plunkett MD Work Phone: [facility] 12-06-2021 14:46-0400 Body height 154.[address] 12-06-2021 14:46-0400 Body mass index (BMI) [Ratio] 36.09 kg/m2 [address] 12-06-2021 14:46-0400 Body temperature 96.4 [degF] [address] 12-06-2021 14:46-0400 Body weight 86.[address] 12-06-2021 14:46-0400 Diastolic blood pressure 67 mm[Hg] [address] 12-06-2021 14:46-0400 Heart rate 62 /min [address] 12-06-2021 14:46-0400 Respiratory rate 20 /min [address] 12-06-2021 14:46-0400 SaO2% (BldA) [Mass fraction] 97 % [address] 12-06-2021 14:46-0400 Systolic blood pressure 153 mm[Hg] [address] 06-15-2021 10:14-0400 Body temperature 97.81 [degF] Kin Abarca MD Work Phone: [facility] [employer] Work Phone: 06-15-2021 10:14-0400 Diastolic blood pressure 58 mm[Hg] Kin Abarca MD Work Phone: [facility] [employer] Work Phone: 06-15-2021 10:14-0400 Heart rate 61 /min Kin Abarca MD Work Phone: [facility] [employer] Work Phone: 06-15-2021 10:14-0400 Respiratory rate 14 /min Kin Abarca MD Work Phone: [employer] Work Phone: 06-15-2021 10:14-0400 SaO2% (BldA) [Mass fraction] 96 % Kin Abarca MD Work Phone: [employer] Work Phone: 06-15-2021 10:14-0400 Systolic blood pressure 113 mm[Hg] Kin Abarca MD Work Phone: [employer] Work Phone: 06-15-2021 08:24-0400 Body height 154.9 cm Kin Abarca MD Work Phone: [employer] Phone: 06-15-2021 08:24-0400 Body mass index (BMI) [Ratio] 34.96 kg/m2 Kin Abarca MD Work Phone: [employer] Work Phone: 06-15-2021 08:24-0400 Body weight 83.92 kg Kin Abarca MD Work Phone: [employer] Phone: 05-12-2021 12:53-0400 Body height 154.9 cm [facility] 1 [employer] Phone: 05-12-2021 12:53-0400 Body mass index (BMI) [Ratio] 35.52 kg/m2 [facility] 1 [employer] Work Phone: 05-12-2021 12:53-0400 Body temperature 96.8 [degF] [facility] 1 [employer] Phone: 05-12-2021 12:53-0400 Body weight 85.28 kg [facility] 1 [employer] Phone: 05-12-2021 12:53-0400 Diastolic blood pressure 66 mm[Hg] [facility] 1 [employer] Work Phone: 05-12-2021 12:53-0400 Heart rate 57 /min [facility] 1 [employer] Work Phone: 05-12-2021 12:53-0400 Respiratory rate 18 /min [facility] 1 [employer] Work Phone: 05-12-2021 12:53-0400 SaO2% (BldA) [Mass fraction] 96 % [facility] 1 [employer] Work Phone: 05-12-2021 12:53-0400 Systolic blood pressure 150 mm[Hg] [facility] 1 [employer] Work Phone: Encounters Encounter Date Encounter Type Care Provider Facility Start: 07-02-2024 End: 07-02-2024 ambulatory YANG [facility] Start: 06-20-2024 End: 06-20-2024 [facility] DPM Work Phone: [facility] Start: 06-20-2024 End: 06-20-2024 Bamboo flowsheet Peyman Hensley DPM Work Phone: [facility] [...] underlying condition with diabetic polyneuropathy, 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 (CMS/[facility]); Pain due to onychomycosis of toenails of both feet Start: 06-12-2024 End: 06-12-2024 ambulatory [facility] Start: 05-27-2024 End: 05-27-2024 ambulatory [facility]ERYL [facility] Start: 05-01-2024 End: 05-01-2024 ambulatory MD Mateus Perry Work Phone: [facility] Work Phone: Start: 05-01-2024 End: 05-01-2024 Patient encounter procedure MD Mtaeus Perry Work Phone: [facility] Vascular Surgery Work Phone: Start: 04-24-2024 End: 04-24-2024 ambulatory MD Mateus Perry Work Phone: [facility] Work Phone: Start: 04-24-2024 End: 04-24-2024 Discharged Recurring MD Mateus Perry Work Phone: [facility] Work Phone: Start: 04-09-2024 End: 04-09-2024 Patient encounter procedure MD Mateus Perry Work Phone: [facility]-Ultrasound [facility] [place] Work Phone: Start: 04-09-2024 End: 04-09-2024 ambulatory MD Mateus Perry Work Phone: [facility] Work Phone: Start: 03-26-2024 Registered Recurring MD Yvonne Perry Work Phone: [facility] Work Phone: Start: 06-20-2023 End: 06-20-2023 ambulatory WINNIE GUZMÁN Facility:[facility] Start: 06-20-2023 End: 06-20-2023 ambulatory Winnie Guzmán PA-C Work Phone: Hematology/Oncology Comment on above: 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, estrogen receptor positive (HCC) (Primary Dx); Stage 3a chronic kidney disease (HCC) Start: 06-20-2023 End: 06-20-2023 Patient encounter procedure Winnie Guzmán PA-C Work Phone: TRAM Start: 06-01-2023 End: 06-01-2023 ambulatory Christiano Gonzales Other [employer] Other Start: 06-01-2023 Office outpatient vi sit 15 minutes Christiano Gonzales [facility] Vascular Surgery Start: 04-06-2023 End: 04-07-2023 ambulatory MATEUS PERRY [facility] Start: 03-09-2023 End: 03-09-2023 ambulatory Millie Storm Other [employer] Other Start: 03-09-2023 Patient encounter procedure Millie Storm [facility] Vascular Surgery Start: 03-06-2023 End: 03-06-2023 ambulatory EMMA GARZA V [facility] Start: 02-14-2023 End: 02-14-2023 ambulatory WALLACE STONE Facility:[facility] Start: 02-14-2023 End: 02-14-2023 ambulatory [...] 12-08-2022 End: 12-08-2022 ambulatory Millie Storm Other [employer] Other Start: 12-08-2022 Telephone encounter Millie Dc Vascular Surgery Start: 12-07-2022 End: 12-07-2022 ambulatory Millie Storm Other [employer] Other Start: 12-07-2022 Patient encounter procedure Millie Storm [facility] Vascular Surgery Start: 11-29-2022 End: 11-29-2022 Admission to same day surgery center MD Mateus Perry Work Phone: [facility]-Interventional Radiology Work Phone: Start: 11-29-2022 End: 11-29-2022 ambulatory MD Mateus Perry Work Phone: [facility] Work Phone: Start: 11-24-2022 End: 11-25-2022 ambulatory LATONIA BRUSH [facility] Start: 11-24-2022 End: 11-24-2022 Subsequent hospital visit by physician Mateus Perry MD Work Phone: [facility] Start: 11-23-2022 End: 11-23-2022 ambulatory Christiano Gonzales Other [employer] Other Start: 11-23-2022 Office outpatient ne w [...] encounter procedure Wallace Stone MD Work Phone: [facility] Start: 11-09-2022 Telephone encounter Wallace carolina MD Work [facility] Comment on above: Referral Information (Vascular Consult) Start: 11-08-2022 End: 11-09-2022 ambulatory Iliana R CHELSI Facility: [facility] Start: 11-08-2022 End: 11-08-2022 Patient encounter procedure Iliana Ramirez CHELSI General Surgery Nill/Said [place] Start: 11-04-2022 End: 11-05-2022 ambulatory Iliana GAGNON Facility:[facility] Start: 11-04-2022 End: 11-04-2022 Patient encounter procedure Iliana Ramirez ANDREEAL General Surgery Nill/Said [place] Start: 11-02-2022 End: 11-03-[address] MATEUS PERRY . Facility: Start: 10-25-2022 End: 10-26-2022 ambulatory Iliana GAGNON Facility:[facility] Start: 10-25-2022 End: 10-25-2022 Patient encounter procedure Iliana DORANL General Surgery Nill/Said [place] Start: 10-19-2022 End: 10-20-[address] ILIANA GAGNON . Facility: Start: 10-15-[address] ILIANA GAGNON . Facil ity:[facility] Start: 10-12-2022 Encounter for preprocedural laboratory examination DR ILIANA GAGNON . [facility] Start: 10-11-2022 End: 10-12-[address] ILIANA GAGNON . Facility:[facility] Start: 10-11-2022 End: 10-12-2022 Encounter for preprocedural laboratory examination DR ILIANA GAGNON . Facility:[facility] Start: 09-30-2022 End: 10-01-[address] MATEUS PERRY . Facility:[facility] Start: 09-22-2022 Telephone encounter Lars Wilkerson RN Work Phone: Hematology/Oncology Comment on above: Care Coordination (S urgery update) Start: 09-22-2022 End: 09-22-2022 ambulatory WALLACE STONE Facility:[facility] Start: 09-22-2022 End: 09-22-2022 ambulatory Wallace Stone MD Work Phone: Hematology/Oncology Comment on above: 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, estrogen receptor positive (HCC) (Primary Dx) Start: 09-22-2022 End: 09-22-2022 Patient encounter procedure Wallace Stone MD Work Phone: [facility] Comment on above: Malignant neoplasm o f upper-outer quadrant of right breast in female, estrogen receptor positive (HCC) (Primary Dx) Start: 09-21-2022 End: 09-21-[address] MATEUS PERRY . Facility:[facility] Start: 09-19-2022 Chart abstracting Wallace messer MD Work Phone: Hematology/Oncology Start: 09-16-2022 End: 09-17-[address] DOCTOR SPEAR Facility:[facility] Start: 09-09-2022 End: 09-10-2022 [facility] Start: 09-09-2022 End: 09-09-2022 Patient encounter procedure Iliana GAGNON General Surgery Nill/Said [place] Start: 09-05-[address] MATEUS PERRY . [...] Vaginal dysplasia Start: 06-22-2022 End: 06-23-2022 ambulatory [facility] Facility:[facility] Start: 05-04-2022 ambulatory [facility] Facility :[facility] Start: 04-12-2022 End: 04-13-2022 ambulatory [facility] Facility:[facility] Start: 03-17-2022 End: 03-17-[address] MATEUS PERRY . Facility:[facility] Start: 03-16-2022 End: 03-16-[address] MATEUS PERRY . Facility:[facility] Start: 03-15-2022 End: 03-16-2022 ambulatory [facility] Facility:[facility] Start: 02-15-2022 End: 02-16-2022 ambulatory [facility] Facility:[facility] Start: 02-09-2022 End: 02-10-2022 ambulatory [facility] Facility: Start: 12-13-2021 End: 12-13-2021 Subsequent hospital visit by physician Emma Garza MD Work Phone: [facility] Comment on above: Post-operative state (Primary Dx) Start: 12-06-2021 End: 12-08-2021 Subsequent hospital visit by physician Stv Pat Xr [facility] Radiology Comment on above: Arrived Start: 12-06-2021 End: 12-10-2021 Patient encounter status Stv[facility] 2 [facility] Pre-Admit Testing Start: 12-06-2021 End: 12-10-2021 Subsequent hospital visit by physician Rangel Pat Rm 2 [facility] Pre-Admit Testing Comment on above: Pre-op chest exam Start: 06-15-2021 End: 06-15-2021 Subsequent hospital visit by physician Kin Abarca MD Work Phone: [facility] Start: 05-12-2021 End: 05-14-2021 Subsequent hospital visit by physician Stv Pat Xr [facility] Radiology Comment on above: Arrived Start: 05-12-2021 End: 05-16-2021 Patient encounter status Stvz 1 [facility] Pre-Admit Testing Start: 05-12-2021 End: 05-16-2021 Subsequent hospital visit by physician Rangel Pat 1 RANGEL Pre-Admit Testing Comment on above: Pre-op chest exam Procedures Date Procedure Procedure Detail Performing Clinician Start: 04-09-2024 Ankle brachial press ure index MD Mateus Perry Work Phone: Start: 04-09-2024 Duplex scan of lower limb veins MD Mateus Perry Work Phone: Start: 11-29-2022 Venography MD Mateus Perry Work Phone: Start: 10-19-2022 Lumpectomy of right breast Iliana CHELSI Start: 06-28-2022 Glucose blood reagen t strip Emam Garza MD Work Phone: Start: 06-28-2022 CALCIUM, [...] Blood typing serolog ic abo Latonia Kimmie PA-[employer] Work Phone: Start: 06-15-2021 H/O: surgery S/p [...] exam ches t 2 views Latonia Kimmie DAMON Work Phone: Start: 05-12-2021 Ecg routine ecg w/le ast 12 lds i&r only Latonia Burks MARISOL Work Phone: Start: 08-20-2020 Antibody screen Comment on above: Performed By: #### [id number] #### [facility] [address] Start: 01-16-2017 History of placement of [...] procedure 08/29/2024 10:00 AM EST Office Visit [facility] [address] [facility] [address] [place] [address] Peyman Hensley DPM [address] [facility] [address] [place] [address] [facility] Start: 06-20-2024 Hemoglobin/Hematocrit Hemoglobin/Hem atocrit [facility] Start: 06-20-2024 Serum Creatinine Serum Creatinine [facility] Start: 05-12-2024 Influenza vaccination Influenza Vacc ine (#1) [facility] Start: 02-15-2024 HEMOGLOBIN/HEMATOCRIT HEMOGLOBIN/HEM ATOCRIT [facility] Start: 02-15-2024 SERUM CREATININE SERUM CREATININE Cl [facility] Start: 06-16-2023 End: 08-16-2023 CBC W Auto Differential panel - Blood CBC + DIFF Lab Routine 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, estrogen receptor positive (HCC) Expected: 06/16/2023 (Approximate), Expires: 08/16/2023 [facility] Work Phone: Comment on above: Expected: 06/16/2023 (Approximate), Expires: 08/16/2023 Start: 06-16-2023 End: 08-16-2023 Comprehensive metabolic 2000 panel - Serum or Plasma COMP METABOLIC PANEL Lab Routine 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, estrogen receptor positive (HCC) Expected: 06/16/2023 (Approximate), Expires: 08/16/2023 [facility] Work Phone: Comment on above: Expected: 06/16/2023 (Approximate), Expires: 08/16/2023 Start: 05-12-2023 Covid-19 Vaccine ( season) Covid-19 Vaccine ( season) [facility] Start: 05-12-2023 Influenza vaccination C [facility] Start: 04-12-2023 End: 04-12-2023 Patient encounter procedure 04/12/2023 Office Visit Gynecologic Oncology Latonia Brush PA-C [facility] [place] [address] [facility] Start: 02-09-2023 End: 04-11-2023 CBC W Auto Differential panel - Blood CBC + DIFF Lab Routine 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, estrogen receptor positive (HCC) Expected: 02/09/2023 (Approximate), Expires: 04/11/2023 [facility] Work Phone: Comment on above: Expected: 02/09/2023 (Approximate), Expires: 04/11/2023 Start: 02-09-2023 End: 04-11-2023 Comprehensive metabolic 2000 panel - Serum or Plasma COMP METABOLIC PANEL Lab Routine 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, estrogen receptor positive (HCC) Expected: 02/09/2023 (Approximate), Expires: 04/11/2023 [facility] Work Phone: Comment on above: Expected: 02/09/2023 (Approximate), Expires: 04/11/2023 Start: 12-13-2022 Potassium monitoring Potassium monit [facility] Start: 12-06-2022 Creatinine measurement Creatinine mo [facility] Start: 12-06-2022 Potassium monitoring Potassium monit [facility] Start: 11-29-2022 End: 11-29-2022 [facility] Start: 09-11-2022 ADVANCE DIRECTIVE DISCUSSION ADVANCE DIRECTIVE DISCUSSION [facility] Start: 09-11-2022 DEPRESSION ASSESSMENT DEPRESSION ASS ESSMENT [facility] Start: 07-27-2022 End: 07-27-2022 Patient encounter procedure 07/27/2022 Office Visit Gynecologic Oncology Emma Garza MD [address] [facility] [address] [place] [address] [facility]nec[facility] Start: 06-28-2022 End: 06-28-2022 VULVA VAGINAL CERVIX LESION EXCISION LASER VULVA VAGINAL CERVIX LESION EXCISION LASER Vaginal dysplasia 06/28/2022 9:04 AM EDT [facility] Start: 06-15-2022 Creatinine measurement Creatinine mo [facility] Work Phone: Start: 06-15-2022 Potassium monitoring Potassium monit [facility] Work Phone: Start: 05-12-2022 Creatinine measurement Creatinine mo [facility] Work Phone: Start: 05-12-2022 Influenza vaccination INFLUENZA (#1) [facility] Start: 05-12-2022 Potassium monitoring Potassium monit [facility] Work Phone: Start: 04-11-2022 Influenza vaccination Flu vaccine (# 1) [facility] Start: 01-14-2022 End: 01-14-2022 Patient encounter procedure 01/14/2022 Office Visit Gynecologic Oncology Latonia Burks PA-C [address] [facility] [address] [place] [id number] [facility]nec[facility] Start: 12-13-2021 End: 12-13-2021 VAGINECTOMY [facility] Start: 12-13-2021 End: 12-13-2021 Admission to same day surgery center [facility] Comment on above: VAGINECTOMY, CYSTOSC OPY CYSTOSCOPY, VAGINECT PATY Start: 12-13-2021 Subsequent hospital visit by physician 12/13/2021 Hospital Encounter IP Unit Emma Garza MD [address] [facility] [address] [place] [id number] [facility] Start: 12-13-2021 End: 12-13-2021 Vaginectomy complete removal vaginal wall VAGINECTOMY VAGINAL DYSPLASIA, RULE OUT CANCER 12/13/2021 10:20 AM EDT [facility] Start: 10-31-2021 Annual Wellness Visi t (AWV) Annual Wellness Visit (AWV) [facility] Start: 10-15-2021 COVID-19 VACCINE (4 - Booster for Moderna series) COVID-19 VACCINE (4 - Booster for Moderna series) [facility] Start: 07-01-2021 End: 07-01-2021 Patient encounter procedure 07/01/2021 Office Visit Gynecologic Oncology Kin Abarca MD [address] [facility] [address] [place] [address] [phone] [facility] Start: 05-12-2021 Influenza vaccination Flu vaccine (# 1) [facility] Work Phone: Start: 04-05-2021 COVID-19 Vaccine (3 - Booster for Moderna series) COVID-19 Vaccine (3 - Booster for Moderna series) [facility] Start: 10-29-2020 Hemoglobin A1c/Hemoglobin.total in Blood HBA1C [facility] Start: 01-19-2018 Pneumococcal Vaccine : 65+ (2 - PCV) Pneumococcal Vaccine: 65+ (2 - PCV) [facility] Start: 01-19-2018 Pneumococcal Vaccine : 65+ Years (2 of 2 - PCV) Pneumococcal Vaccine: 65+ Years (2 of 2 - PCV) [facility] Start: 01-19-2018 PNEUMOCOCCAL: 65+ (2 - PCV) PNEUMOCOCCAL: 65+ (2 - PCV) [facility] Start: 2007 BONE DENSITY BONE DENSITY [facility] Start: 2007 Bone Density Screening Bone Density Screening [facility] Start: 2007 Pneumococcal 65+ yea rs Vaccine (1 - PCV) Pneumococcal 65+ years Vaccine (1 - PCV) [facility] Start: 2007 Pneumococcal 65+ yea rs Vaccine (1 of 1 - PPSV23) Pneumococcal 65+ years Vaccine (1 of 1 - PPSV23) [facility] Start: 2002 Hepatitis B Vaccine (1 of 3 - Risk 3-dose series) Hepatitis B Vaccine (1 of 3 - Risk 3-dose series) [facility] Start: 1997 Screening for osteoporosis DEXA (modify frequency per FRAX score) [facility] Start: 1992 Shingles Vaccine (1 of 2) Shingles Vaccine (1 of 2) [facility] Start: 1992 SHINGRIX VACCINE (1 of 2) SHINGRIX VACCINE (1 of 2) [facility] Start: 1961 DTaP/Tdap/Td vaccine (1 - Tdap) DTaP/Tdap/Td vaccine (1 - Tdap) [facility] Start: 1961 Urine microalbumin profile [facility] Start: 1960 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 DISEASE VISIT ANNUAL PCP TEAM CHRONIC DISEASE VISIT [facility] Start: 1960 BP CONTROLLED (<130/80) BP CON TROLLED (<130/80) [facility] Start: 1960 Hepatitis B surface antibody level LDL CHOLESTEROL [facility] Start: 1960 Hepatitis C screening Hepatitis C sc reen [facility] Start: 1954 Depression Screen Depression Screen [facility] Start: 1952 3 comp foot exam completed DIABETIC FOOT EXAM [facility] Start: 1952 Hepatitis B screening URINE ALBUMIN:CREATININE RATIO [facility] Start: 1952 Hepatitis C antibody , confirmatory test DILATED RETINAL EXAM [facility] Start: [address] [facility] Start: 1942 Hepatitis C screening Hepatitis C sc [facility] Lead EKG 12 Lead ECG STAT 06/28/2022 7:29 AM EDT [facility] [employer] Work Phone: End: 12-13-2021 INITIATE PACU OXYGEN THERAPY PROTOCOL Initiate PACU Oxygen Therapy Protocol Respiratory Care Routine Continuous until discontinued starting 12/13/2021 [employer] Phone: Comment on above: Continuous until dis continued starting 12/13/2021 End: 06-28-2022 INITIATE PACU OXYGEN THERAPY PROTOCOL Initiate PACU Oxygen Therapy Protocol Respiratory Care Routine Continuous until discontinued starting 06/28/2022 [facility] [employer] Phone: Comment on above: Continuous until dis continued starting 06/28/2022 End: 07-19-2024 MAGNO DI[facility]NOSTIC BILATERAL [facility] Radiology Routine 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, estrogen receptor positive (HCC) 1 Occurrences starting 06/20/2023 until 07/19/2024 [facility] Work Phone: Comment on above: 1 Occurrences starti ng 06/20/2023 until 07/19/2024 Patient referral [facility] Work Phone: Spirometry panel Incentive viktoriya metry Respiratory Care Routine Every 2hr while awake until discontinued starting 12/13/2021 [employer] Work Phone: Comment on above: Every 2hr while awak e until discontinued starting 12/13/2021 Surgical Pathology Surgical Path ology Lab Routine Release Upon Ordering for 1 Occurrences starting 06/15/2021 [employer] Phone: Comment on above: Release Upon Orderin g for 1 Occurrences starting 06/15/2021 Surgical Pathology Surgical Path ology Lab Routine Release Upon Ordering for 1 Occurrences starting 12/13/2021 [employer] Phone: Comment on above: Release Upon Orderin g for 1 Occurrences starting 12/13/2021 Surgical Pathology Surgical Path ology Lab Routine Vaginal dysplasia Release Upon Ordering for 1 Occurrences starting 06/28/2022 [employer] Phone: Comment on above: Release Upon Orderin g for 1 Occurrences starting 06/28/2022 End: 06-28-2022 SURGICAL PATHOLOGY REPORT SURGICAL PATHOLOGY REPORT Lab Routine Once for 1 Occurrences starting 06/28/2022 until 06/28/2022 [employer] Work Phone: Comment on above: Once for 1 Occurrenc es starting 06/28/2022 until 06/28/2022 End: 11-24-2022 SURGICAL PATHOLOGY REPORT SURGICAL PATHOLOGY REPORT Lab Routine Once for 1 Occurrences starting 11/24/2022 until 11/24/2022 [employer] Work Phone: Comment on above: Once for 1 Occurrenc es starting 11/24/2022 until 11/24/2022 [facility] Immunizations Immunization Date Immunization Notes Care Provider Patric [facility] 07-12-2022 influenza virus vacc ine, unspecified formulation Iliana GAGNON [facility] 08-20-2021 SARS-CoV-2 (COVID-19 ) mRNA-0403 vaccine Iliana GAGNON [facility] [place] 07-01-2021 influenza (HD-IIV4) vaccine, age 65+ yr, high dose, quadrivalent, PF (FLUZONE HIGH-DOSE) Wallace Stone MD Work Phone: [facility] 07-01-2021 influenza virus vacc ine, unspecified formulation Winnie Guzmán PA-C Work Phone: [facility] 11-06-2020 COVID-19, Moderna, P F, 100mcg/0.5mL Stv Xr [facility] 10-09-2020 COVID-19, Moderna, P F, 100mcg/0.5mL Stv Xr [facility] Work Phone: 06-10-2020 Seasonal trivalent influenza vaccine, adjuvanted, preservative free Wallace Stone MD Work Phone: [facility] 06-07-2017 influenza, high dose seasonal, preservative-free Wallace Stone MD Work Phone: [facility] 01-19-2017 pneumococcal polysaccharide vaccine, 23 valent Wallace Stone MD Work Phone: [facility] 06-29-2015 influenza, high dose seasonal, preservative-free Wallace Stone MD Work Phone: [facility] 06-23-2014 influenza, high dose seasonal, preservative-free Wallace Stone MD Work Phone: [facility] 06-15-2010 pneumococcal polysaccharide vaccine, 23 valent Wallace Stone MD Work Phone: [facility] 06-27-2007 influenza virus vacc ine, whole virus Wallace Stone MD Work Phone: [facility] Payers Date Payer Category Payer Self-pay [id number] 2007 Medicare [id number] 5 2007 Unknown [id number]. 1.13.159.2.7.3.842501.31 5 2007 Unknown [id number] 1.2.840.685986.1.13.239.2.7.3.750910.31 1959 Medicare [id number]1.31 1959 Self-pay [id number] 1959 Unknown [id number] 2.16.8 40.1.443146.19 1942 Unknown [id number] 2.16.84 0.1.203188.3.579.2.593 1942 Unknown [id number] 2.16.84 0.1.246451.3.579.2.593 1942 Unknown [id number] 2.16.84 0.1.018069.3.579.2.593 1942 Unknown [id number] 2.16.84 0.1.761677.3.579.2.593 1942 Unknown [id number] 2.16.84 0.1.447838.3.579.2.593 1942 Unknown [id number] 2.16.84 0.1.806998.3.579.2.593 1942 Unknown [id number] 2.16.84 0.1.799731.3.579.2.593 1942 Unknown [id number] 2.16.84 0.1.399088.3.579.2.593 1942 Unknown [id number] 2.16.84 0.1.378071.3.579.2.593 1942 Unknown [id number] 2.16.84 0.1.439168.3.579.2.593 1942 Unknown [id number] 2.16.84 0.1.956408.3.579.2.593 1942 Unknown [id number] 2.16.84 0.1.071781.3.579.2.593 1942 Unknown [id number] 2.16.84 0.1.091403.3.579.2.593 1942 Unknown [id number] 2.16.84 0.1.898724.3.579.2.593 1942 Unknown [id number] 2.16.84 0.1.797479.3.579.2.593 1942 Unknown [id number] 2.16.84 0.1.488483.3.579.2.593 1942 Unknown [id number] 2.16.84 0.1.441205.3.579.2.593 1942 Unknown [id number] 2.16.84 0.1.438001.3.579.2.593 1942 Unknown [id number] 2.16.84 0.1.806425.3.579.2.593 1942 Unknown [id number] 2.16.84 0.1.228209.3.579.2.593 1942 Unknown [id number] 2.16.84 0.1.635202.3.579.2.593 1942 Unknown [id number] 2.16.84 0.1.891972.3.579.2.593 1942 Unknown [id number] 2.16.84 0.1.698504.3.579.2.593 1942 Unknown [id number] 2.16.84 0.1.541283.3.579.2.593 1942 Unknown [id number] 2.16.84 0.1.941225.3.579.2.593 1942 Unknown [id number] 2.16.84 0.1.669573.3.579.2.593 1942 Unknown [id number] 2.16.84 0.1.208784.3.579.2.593 1942 Unknown [id number] 2.16.8 40.1.743177.3.579.2.727 1942 Unknown [id number] 2.16.8 40.1.766182.3.579.2.727 1942 Unknown [id number] 2.16.8 40.1.850684.3.579.2.727 1942 Unknown [id number] 2.16.8 40.1.042205.3.579.2.727 1942 Unknown [id number] 2.16.8 40.1.587776.3.579.2.727 1942 Unknown [id number] 2.16.8 40.1.210541.3.579.2.727 1942 Unknown [id number] 2.16.8 40.1.429027.3.579.2.727 1942 Unknown [id number] 2.16. 840.1.051276.3.579.2.175 1942 Unknown [id number] 2.16. 840.1.389064.3.579.2.175 1942 Unknown [id number] 2.16. 840.1.448325.3.579.2.175 1942 Unknown [id number] 2.16.84 0.1.068777.3.579.2.1259 Medicare Medicare Outpatient [id number] Unknown [id number] 2.16.8 40.1.451792.3.579.2.531 Unknown [id number] 2.16.8 40.1.523446.3.579.2.531 Social History Date Type Detail Facility Start: 05-12-2021 End: 06-20-2024 Tobacco smoking status [facility] Former smoker [employer] Phone: Start: 09-11-1962 End: 06-28-2018 History of tobacco use Current smoker [employer] Start: 09-11-1962 End: 06-28-2018 History of tobacco use Cigarette Smoker [employer] Start: 05-12-2021 End: 06-20-2024 Tobacco use and exposure Never used [employer] Start: 05-12-2021 End: 11-24-2022 Alcohol intake Ex-drinker (finding) [employer] Phone: Start: 1940 Sex Assigned At Not on file [employer] Work Phone: Start: 11-26-2021 End: 06-24-2022 Exposure to SARS-CoV-2 (event) Not sure [employer] Start: 06-15-2021 End: 06-20-2024 Cigarettes smoked current (pack per day) - Reported [facility] History of tobacco use Passive smoker [employer] Phone: Tobacco smoking status Never [facility] [place] Start: 02-14-2023 End: 06-20-2024 Sex Assigned At [facility] Start: 09-19-2022 End: 02-14-2023 Alcohol intake Current non-drinker of alcohol (finding) [facility] Start: 1940 Sex Assigned At Female F [facility] Tobacco smoking stat [facility] Tobacco smoking consumption unknown [facility] Start: 06-20-2024 Alcoholic beverage intake Lifetime non-drinker (finding) [facility] Medical Equipment Procedure Code Equipment Code Equipment [...] Facility 09-09-2022 Functional Status N/A [facility] Clinical Notes 05-12-2021 to 07-02-2024 Peyman Hensley, DPM - 06/20/2024 9:40 AM EDT Note Date & Type Note Facility 07-02-2024 Note [place] Electrophysiology Consult Note [place] Cardiology [facility] Reason for visit: Afib HPI: Harman Mcleod is a 83 y.o. year old with past medical history of CAD and PAD s/p stenting in the past. [CAD history: stenting of RCA ISR 12/15/2011, stenting of RCA 08/23/2010, Angioplasty and Synergy drug-eluting stent to mid RCA ISR in July 2018] who has hypertension and AF. Her AF was discovered on ECG strips while undergoing cardiac rehab, and known to have systolic heart failure with recovered EF. She is also known to have breast cancer currently on chemotherapy. In August 2020 she underwent attempt at closure of the left atrial appendage using the watchman 2.5 device. This was not feasible as the anatomy was not conducive for that device. She was on hold until we obtain the watchman FLX. She then decided to hold off on the procedure. Recent evaluation showed that her EF has persisted to go down to 35% and she was been known to be in A-fib. She was just discharged from [facility] for GI bleed. Eliquis and aspirin have been put on hold. She was originally scheduled for DCCV today with Dr. Keyes. Jardiance was stopped, and metoprolol was reduced to 100mg daily. She is feeling okay since discharge from hospital. States she has been in afib for years, and that she is always in afib. She feels no symptoms. Denies chest pain, SOB, dizziness/lightheadedness. PMH: Past Medical History: Diagnosis Date Abnormal ECG Arrhythmia Atrial fibrillation (CMS/HCC) CAD (coronary artery disease) Cancer (CMS/HCC) CHF (congestive heart failure) (CMS/HCC) Chronic kidney disease COPD (chronic obstructive pulmonary disease) (CMS/HCC) Diabetes mellitus ([facility]) GI bleed Heart murmur Hyperlipidemia Hypertension PVD (peripheral vascular disease) ([facility]) PSH: Past Surgical History: Procedure Laterality Date CARDIAC CATHETERIZATION 12/15/2011, 08/23/2010, 12/30/2004, CORONARY STENT PLACEMENT HYSTERECTOMY 03/11/2005 VASCULAR SURGERY SH: Social Determinants of Health Tobacco Use: Medium Risk (07/02/2024) Patient History Smoking Tobacco Use: Former Smokeless Tobacco Use: Never Passive Exposure: Not on file Alcohol Use: Not on file Financial Resource Strain: Not on file Food Insecurity: Not on file Transportation Needs: Not on file Physical Activity: Not on file Stress: Not on file Social Connections: Not on file Intimate Partner Violence: Unknown (11/02/2023) [place] [employer] [place] Fear of Current or Ex-Partner: Not on file Emotionally Abused: Not on file Physically Abused: Not on file Sexually Abused: Not on file Physically or Sexually Abused: Not on file Depression: Not on file Housing Stability: Not on file Utilities: Not on file Allergies: Allergies Allergen Reactions Ciprofloxacin Hives and Other Other reaction(s): Other: See Comments tendon issues tendon issues Cefdinir Other Oxycodone Rash Rash & GI upset Oxycodone-Acetaminophen Other GI upset & rash Weight: 67.1kg Visit Vitals BP 140/60 (BP Location: Left arm, Patient Position: Sitting) Pulse 86 Ht 1.549 m (5' 1 ) Wt 67.1 kg (148 lb) SpO2 93% BMI 27.96 kg/m??? Smoking Status Former BSA 1.7 m??? Meds: Current Outpatient Medications on File Prior to Visit Medication Sig Dispense Refill albuterol 2.5 mg /3 mL (0.083 %) nebulizer solution USE 1 VIAL IN NEBULIZER 4 TIMES DAILY NEEDED anastrozole (Arimidex) 1 mg chemo tablet Take 1 mg by mouth in the morning Swallow whole with a drink of water. cholecalciferol (D3-5) 5,000 Units tablet in the morning. febuxostat (Uloric) 40 mg tablet Take 40 mg by mouth in the morning. ferrous sulfate 325 (65 Fe) MG tablet Take 325 mg by mouth two times daily. fish oil concentrate (Gilbert-3) 120-180 mg capsule Take 1,000 mg by mouth. furosemide (Lasix) 40 mg tablet Take 40 mg by mouth every other day. glimepiride (Amaryl) 4 mg tablet Take 4 mg by mouth in the morning and at bedtime. hydrALAZINE (Apresoline) 100 mg tablet Take 100 mg by mouth if needed in the morning, at noon, and at bedtime. For SBP >130 insulin glargine (Lantus) 100 unit/mL (3 mL) injection pen 10 Units. isosorbide mononitrate ER (Imdur) 60 mg 24 hr tablet Take 60 mg by mouth in the morning. levothyroxine (Synthroid, Levoxyl) 112 mcg tablet Take 112 mcg by mouth in the morning. liothyronine (Cytomel) 5 mcg tablet Take 10 mcg by mouth in the morning. metFORMIN (Glucophage) 500 mg tablet Take 500 mg by mouth in the morning and at bedtime. metoprolol succinate XL (Toprol-XL) 200 mg 24 hr tablet Take 100 mg by mouth in the morning. NovoLOG Flexpen U-100 Insulin 100 unit/mL (3 mL) injection pen SLIDING SCALE BEFORE MEALS STARTING AT 140 - 3 UNITS TO MAX 15 UNITS. MAX OF 45 UNITS/DAY pantoprazole (ProtoNix) 40 mg EC tablet Take 40 mg by mouth in the morning and at bedtime. simvastatin (Zocor) 40 mg tablet Take 1 tablet (40 mg) by mouth at bedti (more content not included)... [facility] 06-20-2024 History of Present illness Narrative Patient: [...] 2 months after hitting object. Currently sees [facility] wound center every 3 weeks [...] Partner Violence: Unknown (11/02/2023) [facility] [place] [employer] [place] Fear of [...] and negative PT pedal pulses NEURO: 5.07 [place] Sybil monofilament test intact to digits and forefoot bilaterally 125Hz tuning fork diminished to 1st MPJ bilaterally ORTHO: Positive pain on palpation to nails 1 through 10 Positive pain palpation left anterior braun ASSESSMENT 1. Venous insufficiency 2. Hav (hallux abducto valgus), left 3. Acquired deformity of left toe 4. 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 ([facility]) 5. 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 Pain due to onychomycosis [...] DSD applied . Patient currently has the [facility] wound center applying Medihoney every other day. Did discuss possibility if no improvement to contact Podiatry for advanced wound care treatments or if any signs of infection Peyman Hensley DPM documented in this encounter [facility] 06-12-2024 Note [place] Cardiology - [facility] Subjective Harman Mcleod is a 83 y.o. year old female patient being seen for follow up echo performed on 06/04/2024. Denies chest pain, SOB, and palpitations. Feels good but is tired today. BP at home was 107/71 today and yesterday 114/55. Patient Active Problem List Diagnosis Angina pectoris (CMS/HCC) Atherosclerosis of [place] coronary artery of [place] heart without angina pectoris Dyslipidemia Dyspnea Gastroesophageal [...] alert and orie (more content not included)... [facility] 05-27-2024 Note Remains on ASA No c/o angina or concerns [facility] 05-27-2024 Note As above [facility] 05-27-2024 Note [id number]= 6-7 at least with Age, Sex, CHF, CAD/Vascular disease, HTN, DM Currently per assessment she appears to be in rhythm heart rate well-controlled with metoprolol 200 mg daily and she remains on Eliquis anticoagulation without any bleeding tendencies or concerns. [facility] 05-27-2024 Note Lipid abnormalities are elevated therefore will increase zocor to 40 mg daily. Will repeat lipid level and liver function in 2-3 months [facility] 05-27-2024 Note Congestive heart ivanemily todd is stable without worsening symptoms [facility] II -currently patient is euvolemic without exacerbation. She has returned home from senior care facility and presents today with granddaughter who [...] helps prevent rehospitalization for heart failure exacerbation [facility] 05-27-2024 Note Hypertension current ly is well-controlled at 106/67 Continue amlodipine, hydralazine, Imdur, Toprol and spironolactone Currently renal function normal, no acute concerns. [facility] 05-27-2024 Note Coronary artery dise ase [...] exercise as tolerated and continue all medications. [facility] 05-27-2024 Note [facility] CARDIOLOGY PROGR ESS [...] fluid overload-of which she was discharged to senior care facility until this past December. She has [...] systems reviewed and are negative Admit to [facility] 02/13/24 DC Summary DS: Summary Hospital [...] 81 mg by mouth. fish oil concentrate (Gilbert-3) 120-180 mg capsule Take 1,000 mg by [...] 112 mcg tabl (more content not included)... [facility] 05-27-2024 Note Pt is here for a one year follow up. Pt denies chest pain, palpatations, sob. Review of Systems All other systems reviewed and are negative. [facility] 04-10-2024 Progress note Note Date/Time April 10, 2024 10:30am [facility] [address] [place] [address] Wound Center Provider Note Signed Patient: Harman Mcleod MR#: [id number] : 1940 Acct:[id number] Age/Sex: 83 / F Copies to: MD Janell Oliver APRN~ HPI Date of Visit Date of Visit: Date of Service: 04/10/2024 Time of Service: 10:26 Narrative HPI: 12/11/23 Harman is an 83 year old presenting to [facility] wound care for an initial visit [...] present for the entire visit, she has [facility], the left [...] again today for good measure and [facility] can remove next week and start stockings or wraps if something is open on the legs, family and friend present for the visit, does not need to return to the office unless new ulcers do develop, spoke about her getting established with a assistant project manager and so hopefully she will follow through [...] go to the ED per the [facility] nurse but she had refused this [...] bilateral lower leg ulcers 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 [facility] History of bladder suspension procedure Problem List clean-up per request of Phys. EHR Cmte H/O: hysterectomy Problem List clean-up per request of Phys. EHR Cmte History of appendectomy Problem List clean-up per request of Phys. EHR Cmte History of heart artery stent Problem List clean-up per request of Phys. [facility]HR [facility] Family History (Updated 06/01/23 @ 08:45 [...] DAILY 04/25/19 [History Confirmed 12/11/23] omega-3s 300 jw-qaz-pey-other [id number] oil 1,000 mg capsule (Gilbert-3 Fish Oil) 2 cap PO BID 04/25/19 [...] Stasis Ulcer Thickness: Skin Breakdown Bed Appearance: [place] Percent of Wound Bed Granulated/Red: 100 Percent [...] 11 Dictated By: Janell Mathews APRN DD/ 102 Signed By: <Electronically signed by FERNY Mathews> 04/10/24 1030 [facility] Work Phone: 1(617) 242-553007-16-2024 Progress note Author Janell Mathews [facility] March 26, 2024 9:51am Note Date/Time March 26, 2024 9:51 am [facility] [address] [place] [address] Wound Center Provider Note Signed Patient: Harman Mcleod MR#: [id number] : 1940 Acct:[id number] Age/Sex: 83 / F Copies to: MD Janell Oliver APRN~ HPI Date of Visit Date of Visit: Date of Service: 03/26/2024 Time of Service: 09:47 Narrative HPI: 12/11/23 Harman is an 83 year old presenting to [facility] wound care for an initial visit [...] [facility] for the entire visit, 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 [facility] Surgical History History of bladder suspension [...] DAILY 04/25/19 [History Confirmed 12/11/23] omega-3s 300 vs-hqz-ujw-other hyohu8x-utrd oil 1,000 mg capsule (Gilbert-3 Fish Oil) 2 cap PO BID 04/25/19 [...] Breakdown Bed Appearance: Epithelial Tissue or Bridge, [place] and Yellow Percent of Wound Bed Granulated/Red: [...] 12 Dictated By: Janell Mathews APRN DD/ Signed By: <Electronically signed by FERNY Mathews> 03/26/24 0951 [facility] Work Phone: 1(581) 715-599606-04-2024 Progress note Author Janell Mathews [facility] February 13, 2024 10:55am Note Date/Time February 13, 2024 10:55 am [facility] [address] [place] [address] Wound Center Provider Note Signed Patient: Harman Mcleod MR#: [id number] : 1940 Acct:[id number] Age/Sex: 83 / F Copies to: MD Janell Oliver APRN~ HPI Date of Visit Date of Visit: Date of Service: 02/13/2024 Time of Service: 10:47 Narrative HPI: 12/11/23 Harman is an 83 year old presenting to [facility] wound care for an initial visit [...] present for the entire visit, she has [facility], the left [...] again today for good measure and [facility] can remove next week and start stockings or wraps if something is open on the legs, family and friend present for the visit, does not need to return to the office unless new ulcers do develop, spoke about her getting established with a assistant project manager and so hopefully she will follow through [...] go to the ED per the [facility] nurse but she had refused this and wanted to come to this appt instead Subjective Pain Left Leg: Pain Description: Intermittent Pain Intensity: 0 Wound/Ulcer History When did wound start?: August 2023 bilateral lower leg ulcers 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 EHR [facility] Surgical History History of bladder suspension procedure Problem List clean-up per request of Phys. EHR Cmte H/O: hysterectomy Problem List clean-up per request of Phys. EHR Cmte History of appendectomy Problem List clean-up per request of Phys. EHR Cmte History of heart artery stent Problem List clean-up per request of Phys. [facility]HR [facility] Family History (Updated 06/01/23 @ 08:45 [...] DAILY 04/25/19 [History Confirmed 12/11/23] omega-3s 300 tm-nwo-ztq-other ufxae1h-qxkj oil 1,000 mg capsule (Gilbert-3 Fish Oil) 2 cap PO BID 04/25/19 [...] Posterior Thigh: Bed Appearance: Beefy Red and [place] Percent of Wound Bed Granulated/Red: 0 Percent [...] <Electronically signed by FERNY Mathews> 02/13/24 10[address] [facility] Work Phone: 1(965) 441-782705-21-2024 Progress note Author Janell Mathews [facility] January 30, 2024 10:44am Note Date/Time January 30, 2024 10:44 am [facility] [address] [place] [address] Wound Center Provider Note Signed Patient: Harman Mcleod MR#: [id number] : 1940 Acct:[id number] Age/Sex: 83 / F Copies to: MD Janell Oliver APRN~ HPI Date of Visit Date of Visit: Date of Service: 01/30/2024 Time of Service: 10:37 Narrative HPI: 12/11/23 Harman is an 83 year old presenting to [facility] wound care for an initial visit [...] present for the entire visit, she has [facility], the left [...] again today for good measure and [facility] can remove next week and start stockings or wraps if something is open on the legs, family and friend present for the visit, does not need to return to the office unless new ulcers do develop, spoke about her getting established with a assistant project manager and so hopefully she will follow through [...] bilateral lower leg ulcers 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 Helper: Friend Assistive Device Used Today: Walker Lives with:: Significant Other Appetite Description: Within Normal Limits Who helps w/ dressing change?: Home Health Why Do You Need Help?: Can't Reach Ulcer, Limited mobility, Unsafe leave home byself and Taxing effort to leave home Smoking Status: Former smoker [facility] Medical History (Updated 01/30/24 @ 10:43 by [...] 01/30/24 10:25 01/30/24 10:25 01/30/24 10:25 01/30/24 10:01/30/24 10:25 Const General: cooperative, comfortable and no [...] DAILY 04/25/19 [History Confirmed 12/11/23] omega-3s 300 ei-isj-zty-other bhhoy5j-yuiv oil 1,000 mg capsule (Gilbert-3 Fish Oil) 2 cap PO BID 04/25/19 [...] Posterior Thigh: Bed Appearance: Beefy Red and [place] Percent of Wound Bed Granulated/Red: 100 Percent [...] <Electronically signed by FERNY Mathews> 01/30/24 [address] [facility] Work Phone: 1(382) 233-970004-18-2024 Progress note Author Janell Mathews [facility] December 28, 2023 11:22am Note Date/Time December 28, 2023 11: 22am [facility] [address] [place] [address] Wound Center Provider Note Signed Patient: Harman Mcleod MR#: [id number] : 1940 Acct:[id number] Age/Sex: 83 / F Copies to: MD Janell Oilver APRN~ HPI Date of Visit Date of Visit: Date of Service: 12/28/2023 Time of Service: 11:19 Narrative HPI: 12/11/23 Harman is an 83 year old presenting to [facility] wound care for an initial visit [...] present for the entire visit, she has [facility], the left [...] spoke about her getting established with a assistant project manager and so hopefully she will follow through on that, spoke about compression socks too forlong term use Subjective Pain Left Leg: Pain Intensity: 0 Wound/Ulcer History When did wound start?: August 2023 bilateral lower leg ulcers 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 [facility] Vaginal lesion Problem List clean-up per request of Phys. EHR Cmte PAD (peripheral artery disease) Problem List clean-up per request of Phys. EHR Cmte CAD (coronary artery disease) Problem List clean-up per request of Phys. EHR Cmte Dyslipidemia Problem List clean-up per request of Phys. EHR Cmte Hyperthyroidism Problem List clean-up per request of Phys. [facility] Diabetes mellitus Problem List clean-up per request of Phys. [facility] Hypertension Problem List clean-up per request of Phys. [facility]HR [facility] Surgical History History of bladder suspension procedure Problem List clean-up per request of Phys. [facility] H/O: hysterectomy Problem List clean-up per request of Phys. [facility] History of appendectomy Problem List clean-up per request of Phys. EHR Cmte History of heart artery stent Problem List clean-up per request of Phys. [facility] Family History (Updated 06/01/23 @ 08:45 [...] DAILY 04/25/19 [History Confirmed 12/11/23] omega-3s 300 yn-loy-vkh-other xtiek3m-eagh oil 1,000 mg capsule (Gilbert-3 Fish Oil) 2 cap PO BID 08/15/19 [History Confirmed 12/11/23] simvastatin 20 mg tablet [...] <Electronically signed by FERNY Mathews> 12/28/23 112[address] [facility] Work Phone: 1(186) 907-422504-01-2024 Progress note Author Janell Mathews [facility] December 11, 2023 9:35am Note Date/Time December 11, 2023 9:35 am [facility] [address] [place] [address] Wound Center Provider Note Signed Patient: Harman Mcleod MR#: [id number] : 1940 Acct:[id number] Age/Sex: 83 / F Copies to: MD Janell Oliver APRN~ HPI Date of Visit Date of Visit: Date of Service: 12/11/2023 Time of Service: 09:27 Narrative HPI: 12/11/23 Harman is an 83 year old presenting to [facility] wound care for an initial visit [...] present for the entire visit, she has [facility], the left leg will be treated with [...] bilateral lower leg ulcers 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: Friend Assistive Device Used Today: Walker Lives with:: Significant Other Appetite Description: Within Normal Limits Who helps w/ dressing change?: Home Health Why Do You Need Help?: Can't Reach Ulcer, Limited mobility, Unsafe leave home byself and Taxing effort to leave home Smoking Status: Former smoker [facility] Medical History (Updated 12/11/23 @ 09:30 by [...] DAILY 04/25/19 [History Confirmed 12/11/23] omega-3s 300 ql-lcb-tji-other wehnf4m-gtga oil 1,000 mg capsule (Gilbert-3 Fish Oil) 2 cap PO BID 04/25/19 [...] 08:45) Rash acetaminophen [From Percocet] Allergy (Verified 08/15/19 10:01) Rash cefdinir Allergy (Verified 12/11/23 09:29) Vomiting tramadol Adverse Reaction (Verified 11/29/22 09:13) Hallucinating Wound/Ulcer Left Lower Lateral Leg: Type: Venous Stasis Ulcer Thickness: Skin Breakdown Bed Appearance: Epithelial Tissue or Bridge, [place] and Yellow Percent of Wound Bed Granulated/Red: [...] By: <Electronically signed by FERNY Mathews> 12/11/23934 [facility] Work Phone: [phone] 474-381310-10-2023 NoteHNO ID: [id number] Author: Winnie Guzmán PA-C Service: ? Author Type: Physician Slitter Operator Type: Progress Notes Filed: 06/20/2023 3:58 PM Note Text: PATIENT NAME: Harman [facility] NO.: [id number] ATTENDING PHYSICIAN: Wallace Stone MD DATE OF [...] Negative LVI, 2 SNL negative, ER and TX >95% positive, Her2 IHC 1+ Treatment History: [...] 6.4 10/24/2017 7.3 Al (more content not included)...[facility]10-10-2023 Nurse Note * Lina Lopes MA - 06/20/2023 2:49 PM EDT Patient would like to know if she needs a mammogram? She was told in Oct that she would need one in6 months. Lina Lopes MA documented in this encounterBucyrus Community Hospital10-10-2023 History of Present illness Narrative* Winnie Guzmán PA-C - 06/20/2023 2:30 PM EDT Images from the original note were not included. PATIENT NAME: Harman Mcleod [facility] NO.: [id number] ATTENDING PHYSICIAN: Wallace Stone MD DATE OF [...] Negative LVI, 2 SNL negative, ER and TX >95% positive, Her2 IHC 1+ Treatment History: [...] Range Status 06/20/2023 4.8 % Final Abs Smyth Date Value Ref Range Status 06/20/2023 0.49 [...] follow up. R Breast T1b,N0,M0- ER and TX >95% positive and Her-2 IHC 1+ tumor post Lumpectomy and SNL 10/2022. Reviewed path and she elected not to proceed with XRT and started Arimidex in 11/2022. Continues to tolerate well. Mammogram in 07/2023 (order placed). See us in 4 months. Plan is for 5 years of AI therapy Osteoporosis- On Prolia started 08/[address] Perry Vulvar high grade dysplasia- Follows Pressing Machine Tender Onc at [facility] R Leg swelling and pain and h/o PVD- Follows vascular HTN--managed by PCP Winnie Guzmán PA-C CC: MD Mateus Spicer MD documented in this encounterBucyrus Community Hospital09-21-2023 Evaluation note* Encounter Date Diagnosis Assessment Notes [...] In addition I took her to the Building Maintenance Repairer and performed a right iliac venogram which [...] offer her a second opinion at the [facility] vascular medicine program. She declined. I will see her as needed in the future. [facility] Other 06-29-2023 Evaluation note* Encounter Date Diagnosis [...] to call us with any concerns whatsoever. [facility] Other 06-06-2023 NoteHNO ID: [id number] Author: Wallace Stone MD Service: ? Author Type: Physician Type: Progress Notes Filed: 02/14/2023 10:49 AM Note Text: PATIENT NAME: Harman Mcleod CLINIC NO.: [id number] ATTENDING PHYSICIAN: Wallace Stone MD DATE OF [...] Negative LVI, 2 SNL negative, ER and TX >95% positive, Her2 IHC 1+ Treatment History: [...] 04/28/2020 1.12 BUN (mg/dL) (more content not included)...[facility]06-06-2023 History of Present illness Narrative* Wallace Stone MD - 02/14/2023 10:37 AM EDT Images from the original note were not included. PATIENT NAME: Harman Mcleod CLINIC NO.: [id number] ATTENDING PHYSICIAN: Wallace Stone MD DATE OF [...] Negative LVI, 2 SNL negative, ER and TX >95% positive, Her2 IHC 1+ Treatment History: [...] Range Status 02/14/2023 8.3 % Final Abs Smyth Date Value Ref Range Status 02/14/2023 0.86 [...] follow up. R Breast T1b,N0,M0- ER and TX >95% positive and Her-2 IHC 1+ tumor post Lumpectomy and SNL 10/2022. Reviewed path and she elected not to proceed with XRT and started Arimidex in 11/2022 and toleraing well. Plan for 5 years of therapy. Osteoporosis- On Prolia started 08/[address] Perry Vulvar high grade dysplasia- Follows Pressing Machine Tender Onc at [place] [facility] R Leg swelling and pain and h/o PVD- Follows vascular HTN Rash- refer to Derm Thank you for the kind referral. If there are any questions and or concerns please do not hesitate to contact me at [phone]. Wallace Stone MD Hematology/Medical Oncology [facility] I spent a total of 30 minutes on the date of the service which included preparing to see the patient, kivz-wq-vwee patient care, completing clinical documentation, obtaining and/or reviewing separately obtained history, performing a medically appropriate examination, counseling and educating the pat ient/family/caregiver, and ordering medications, tests, or procedures. CC: MD Mateus Spicer MD documented in this encounterBucyrus Community Hospital03-29-2023 Evaluation note* Encounter Date Diagnosis Assessment Notes [...] primary care provider as well as her floor representative. We will continue to follow her along and see her again in a couple of months and see how she is doing with her pumps, conservative efforts, and weight management. She knows to call us in the meantime with any other additional concerns or complaints. [facility]-21-2023 [facility]* Encounter Date Diagnosis Assessment [...] specified soft tissue disorders (ICD-10 - M79.89) [facility] Other 03-08-2023 Miscellaneous Notes* Telephone Encounter - Adriana Burnham - 11/16/2022 8:40 AM EST Called Vascular office spoke with Jessy. They have received this referral and have patient scheduledwith Dr Gonzales on 11/23 @ 10:00. Adriana Pereira Pss * Telephone Encounter - Kira Ko [facility] - 11/10/2022 9:38 AM EST Records faxed. * Telephone Encounter - Adriana Pereira [facility] - 11/10/2022 8:46 AM EST Janeth: Information ready for you. Adriana Pereira Pss * Telephone Encounter - Carlos Brooks - 11/09/2022 2:44 PM EST Vascular Consult [facility] Previous patient of Dr. Mendez 3 years or more. Janeth/Dudley: Can you please refer patient and follow up? Thanks! Carlos Brooks documented in this encounterBucyrus Community Hospital03-01-2023 NoteHNO ID: [id number] Author: Wallace Stone MD Service: ? Author Type: Physician Type: Progress Notes Filed: 11/09/2022 2:24 PM Note Text: PATIENT NAME: Harman Mcleod CLINIC NO.: [id number] ATTENDING PHYSICIAN: Wallace Stone MD DATE OF SERVICE: November 09, [address] Banks referring provider defined for this encounter. here is an update on a follow up visit on female Harman Mcleod at the clinic 11/09/2022 Diagnosis: T1b, N0, M0- R breast, Tumor 9 mm, Grade 2, Margins negative, Negative LVI, 2 SNL negative, ER and TX >95% positive, Her2 IHC 1+ Treatment History: [...] (mg/dL) Date Value 0 (more content not included)...[facility]03-01-2023 History of Present illness Narrative* Wallace Stone MD - 11/09/2022 2:00 PM EST Images from the original note were not included. PATIENT NAME: Harman Mcleod CLINIC NO.: [id number] ATTENDING PHYSICIAN: Wallace Stone MD DATE OF SERVICE: November 09, [address] Banks referring provider defined for this encounter. here is an update on a follow up visit on female Harman Mcleod at the clinic 11/09/2022 Diagnosis: T1b, N0, M0- R breast, Tumor 9 mm, Grade 2, Margins negative, Negative LVI, 2 SNL negative, ER and TX >95% positive, Her2 IHC 1+ Treatment History: [...] follow up. R Breast T1b,N0,M0- ER and TX >95% positive and Her-2 IHC 1+ tumor post Lumpectomy and SNL 10/2022. Reviewed path and she may skip radiation and also discussed hormonal; therapy with an AI and she will start Arimidex. Discussed adverse events and she wishes to proceed. Osteoporosis- On Prolia started 08/[address] Perry Vulvar high grade dysplasia- Follows Pressing Machine Tender Onc at [place] and next appointment 11/24/2022 [facility] R Leg swelling and pain and h/o PVD- refer to vascular HTN Thank you for the kind referral. If there are any questions and or concerns please do not hesitate to contact me at [phone]. Wallace Stone MD Hematology/Medical Oncology [facility] [place] spent a total of 30 minutes on the date of the service which included preparing to see the patient, egsr-wn-qite patient care, completing clinical documentation, obtaining and/or reviewing separately obtained history, performing a medically appropriate examination, counseling and educating the pat ient/family/caregiver, and ordering medications, tests, or procedures. CC: MD Mateus Spicer MD documented in this encounterBucyrus Community Hospital02-08-2023 NoteOPERATIVE NOTE OPERATION DATE: 10/19/2022 PREOPERATIVE DIAGNOSIS: Right breast cancer. POSTOPERATIVE DIAGNOSIS: Right breast cancer. PROCEDURE: Needle localized right breast lumpectomy with sentinel lymph node biopsy. SURGEON: Iliana Gagnon M.D. ANESTHESIA: General laryngeal mask airway. ROLLER STAINER: SADI Hammer ESTIMATED BLOOD LOSS: Less than [...] in good condition. CC: Mateus Perry M.D.[id number] NoteEXAMINATION: XR CHEST 2 V HISTORY: Pre-surgery [...] Electronically authenticated by: ALFONSO GEORGE Date: 2022-10-11 12:11[facility]01-13-2023 NoteHNO ID: [id number] Author: Marcin Shah MD Service: ? Author Type: Physician Type: Progress Notes Filed: 2022 6:06 AM Note Text: Radiation Oncology - New Patient/Consult Note PATIENT NAME: Harman Mcleod PATIENT REQUESTING PHYSICIAN: Dr. 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 PATIENT IDENTIFICATION: This patient was seen in the Department of Radiation Oncology at the [facility] with Marcin Shah MD. She was accompanied today by her family. Final recommendations will be communicated back to the requesting physician by way of the shared medical record, or letter to requesting physician via US mail. HISTORY OF PRESENT ILLNESS: Ms. Mcleod is an 82-year-old woman from [place], [place] who was discovered on screening mammogram from July 2022 to have an abnormality within the anterior upper outer quadrant of the right breast. This was confirmed on ultrasound and she underwent stereotactic biopsy on 08/19/2022 with pathology revealing intermediate grade IDC that was ER/TX positive HER2 negative. She has met with [...] acetaminophen (TYLENOL EXTRA STRENGTH (more content not included)...[facility]01-12-2023 History of Present illness Narrative* Marcin Shah MD - 09/22/2022 11:38 PM EST Images from the original note were not included. Radiation Oncology - New Patient/Consult Note PATIENT NAME: Harman Mcleod PATIENT Signed: Marcin Shah MD I spent a total of 60 minutes on the date of the service which included preparing to see the patient, qole-oh-uahq patient care, and counseling and educating the patient/family/caregiver. This document has been created with the use of voice recognition technology. It may contain inaccuracies, misspellings, inaccurate syntax or inappropriate word context that are a result of the inadequacies/shortcomings of said technology/software. documented in this encounterBucyrus Community Hospital01-12-2023 NoteHNO ID: [id number] Author: Wallace Stone MD Service: ? Author Type: Physician Type: Progress Notes Filed: 09/22/2022 5:19 PM Note Text: PATIENT NAME: Harman Mcleod CLINIC NO.: [id number] ATTENDING PHYSICIAN: Wallace Stone MD DATE OF [...] provisional grade 1 through 2, ER and TX greater than 95% positive, HER2/holden negative with an IHC score of 1+ and FISH negative at [facility]. This patient was subsequently referred to Dr. Iliana Gagnon for surgical consultation. Patient denies any previous history of abnormal mammograms and or breast biopsy. She has had a recent bone density in [place] and was diagnosed with osteoporosis and started on Prolia as well. Patient has a sister who was diagnosed with breast cancer at the age of 82 and her daughter diagnosed with breast cancer at the age of 37. She quit smoking approximately 4 years ago. 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 She [...] mouth daily at bedtime. Cut in half Gspcm-6-VAK-EPA-Fish Oil 1,000 mg (120 mg-180 mg) cap [...] mellitus, type 2) (HCC) (more content not included)...[facility]01-12-2023 History of Present illness Narrative* Wallace Stone MD - 09/22/2022 5:10 PM EST Images from the original note were not included. PATIENT NAME: Harman Mcleod CLINIC NO.: [id number] ATTENDING PHYSICIAN: Wallace Stone MD DATE OF [...] provisional grade 1 through 2, ER and TX greater than 95% positive, HER2/holden negative with an IHC score of 1+ and FISH negative at [facility]. This patient was subsequently referred to Dr. Iliana Gagnon for surgical consultation. Patient denies any previous history of abnormal mammograms and or breast biopsy. She has had a recent bone density in [place] and was diagnosed with osteoporosis and started on Prolia as well. Patient has a sister who was diagnosed with breast cancer at the age of 82 and her daughter diagnosed with breast cancer at the age of 37. She quit smoking approximately 4 years ago. 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 She [...] mouth daily at bedtime. Cut in half Ohcjs-8-HTP-EPA-Fish Oil 1,000 mg (120 mg-180 mg) cap [...] ductal carcinoma, provisional grade 1-2, ER and TX greater than 95% positive, HER2/holden negative with [...] me to participate in [facility], ifthere are any questions or concerns please do not hesitate to contact me at the number below. Wallace Stone M.D. Hematology/Medical Oncology [facility] [phone] CC: MD Mateus Spicer MD I spent a total of 60 minutes on the date of the service which included preparing to see the patient, zspf-xa-nfwb patient care, completing clinical documentation, obtaining and/or reviewing separately obtained history, performing a medically appropriate examination, counseling and educating the pat ient/family/caregiver, ordering medications, tests, or procedures, and communicating with other HCPs (not separately reported). documented in this encounterBucyrus Community Hospital01-12-2023 Miscellaneous Notes* Telephone Encounter - Lars Wilkerson [...] involved. Lars Wilkerson RN documented in this encounterBucyrus Community Hospital12-30-2022 NoteChief Complaint consultation for right breast cancer [...] biopsy that r evealed invasive ductal carcinoma, ER/TX +; Her2 holden negative; patient denies change [...] gms IV prior to OR SCDs Ordered: [facility] External Ambulatory Referral [facility] External Ambulatory Referral 2. Chronic anticoagulation (Z79.01: watermaster (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) hold Eliquis 2 days prior to surgery, if ok with Cardiology. 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 CHANCE Garza MD * Marissa Sinhg RN - 06/24/2022 11:32 AM EDT Pt. instructed to continue ASA and Eliquis pre-op for OR 06-28-22 per Deborah/ Dr. Garza. documented in this encounterLONG ISLAND HOSPITALParentingInformer Phone: 1([phone]) 815-444210-18-2022 Hospital Discharge instructions* Discharge Instructions* Brody Ken [...] urinate call your doctor documented in this encounterLONG ISLAND HOSPITALParentingInformer Phone: 1(455) 602-529504-04-2022 History of Present illness Narrative* Brody Ken [...] Plunkett MD - 12/13/2021 2:12 PM EDT Pressing Machine Tender Oncology Attending Note Patient seen and evaluated by me today. Chart, pathology, findings, operation revd once more. She tells me today that she fully understands the operation and all of the serious risks and downstream consequences. She tells me today that all questions are answered to her satisfaction today. Proceed to OR today as scheduled CHANCE Garza MD * Byron Oshea RN - 12/10/2021 12:49 PM EDT Repeat potassium 12/08/21 3.8.pcp ok for surgery on 12/13/21 * Byron Oshea RN - 12/10/2021 12:47 PM EDT Medical clearance on chart for or 12/13/21 * Byron Oshea RN - 12/10/2021 9:18 AM EDT Updated cardiac clearance on chart for or 12/13/21 documented in this [facility] Technology Phone: 1(243) 489-689304-04-2022 Evaluation note* Diagnosis Vaginectomy w/ Cysto 12/13/21- Primary Other postprocedural status documented in this encounter [employer] Phone: 1(901) 275-771704-04-2022 Hospital Discharge instructions* Instructions* Brody Ken RN [...] of: May 19, 2021 Content Version: 13.2 [employer]. Care instructions adapted under license by [employer]. If you have questions about a medical condition or this instruction, always ask your healthcare professional. [employer] disclaims any warranty or liability for your [...] urinate call your doctor documented in this [facility] Work Phone: 1(196) 771-330003-28-2022 History of Present illness Narrative* YANA Wallis [...] Disease: Yes, stents x 3, Dr. Keyes ([facility]) Hypertension: yes Active smoker: Quit 2017, [...] pcp potassium 3.3,wbc 12.6 documented in this [facility] Phone: 1(921) 337-113603-25-2022 Hospital Discharge instructions* Instructions* Yoanna Diaz PA [...] drive you home after your procedure. Your front end loader driver must be 18 years of age [...] questions, call the Pre-Admission Testing Unit at [phone]. Day of Surgery/Procedure As a patient at [facility] you can expect quality medical and nursing care that is centered on your individual needs. Our goal is to make your surgical experience as comfortableas possible . Directions to the Surgery Center [facility] is located at [address] [place] [address]. Please pull into the Emergency parking lot and stop at the zanda richards. We offer free tripoler service for all our surgery patients, if you choose not to have tripoler parking we have additional parking across the street.You will enter the facility following the [facility] sign. Please stop at the front desk receptionist desk where you will be checked in by the staff. If you have any questions please call [phone]. Transportation after your procedure. You will need a friend or family member to drive you home after your procedure. Your front end loader driver must be18 years of age or [...] You may shave your face or neck. [place] your teeth but do not swallow water. [...] or the day of surgery, please call [phone], or [phone] documented in this [facility] Work Phone: 1([phone]) 590-250510-05-2021 History of Present illness Narrative* Parvin Rogel RN - 06/15/2021 10:[address] Kamla gan, pt cleared for phase II * Alla Dickerson DO - 06/15/2021 9:42 AM EDT OB Resident Progress Note Patient may be discharged home once she has met criteria in the PACU. Please perfect serve or page INDEX EDITOR resident listed below with any questions, concerns, or if patient has not met PACU discharge criteria in 2-3 hours. . Please page first. Alla Dickerson DO INDEX EDITOR Resident PGY3 Pager: [phone] [facility] 06/15/2021, 9:42 AM documented in this [employer] Phone: [phone]) 511-393310-04-2021 Hospital Discharge instructions* Instructions* Alla Dickerson DO [...] cleared by your physician documented in this [employer] Phone: 1(806) 169-254209-01-2021 Hospital Discharge instructions* Instructions* Na Cabezas APRN - PHYSICAL THERAPY NURSE - 05/12/2021 Pre-operative Instructions Please arrive at [...] public transportation ALONE is not acceptable. -Your front end loader driver must be 18 years of age [...] of Surgery/Procedure As a patient at [facility] you can expect quality medical and nursing care that is centered on your individual needs. Our goal is to make your surgical experience as comfortableas possible . Directions to the Surgery Center [facility] is located at [address] [place] [address]. Please pull into the Emergency/Surgery Center parking lot and stop at the tripoler richards. We offer free tripoler service for all our surgery patients, if you choose not to have tripoler parking we have additional parking across the [...] pharmacy bottles in a zip lock bag. [place] your teeth but do not swallow water. [...] DAY OF your surgery, you may call [phone] documented in this [facility] Phone: 1(958) 823-722709-01-2021 History of Present illness Narrative* Mandy Baker [...] Pedal edema Pneumonia PVD (peripheral vascular disease) ([facility]) Thyroid disease Under care of team 05/12/2021 dr Perry [facility]-last visit apr 2021 Under care of team 05/12/2021 [facility] Varicose vein of leg Patient [...] outside provider), cardiac stentx 3. Last saw floor representative in December 2020. On Eliquis and aspirin prescribed from her floor representative. Medical or cardiac clearance ordered: cardiac FERNY Andres CNP 05/12/21 2:43 PM [facility] Work Phone: evaluation + Plan noteGeneral Surgery [place] Evaluation + Plan note Future Appointments Appointment Date:11/08/2022 02:00:00 PM Scheduled Provider:Iliana GAGNON MD Location:[facility] Appointment Type:[place] [id number] General Surgery [place] Evaluation + Plan note Future Appointments Appointment Date:11/22/2022 01:40:00 PM Scheduled Provider:Iliana GAGNON MD Location:[facility] Appointment Type:[place] [address] General Surgery [place] Evaluation note* Diagnosis Pre-op chest exam Pre-operative respiratory examination documented in this encounter [employer] Phone: evalcqatyt note* Diagnosis S/p Partial vaginectomy with Ultrasonic Scalpel 06/15/21- 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, 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 documented in this encounter [employer] Phone: [email or web address] note* Diagnosis Pre-op chest exam Pre-operative respiratory examination documented in this encounter [employer] Phone: evalttxieu note* Diagnosis Vaginal dysplasia Dysplasia of vagina S/p Vaginal and Vulvar Biopsies, CO2 laser vaporization of vaginal and vulvar lesions 06/28/22 Other postprocedural status 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, 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 documented in this encounter [employer] Phone: evaluation note* Diagnosis 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, estrogen receptor positive (HCC)- Primary [facility]* Diagnosis 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 breast in female, estrogen receptor positive (HCC)- Primary [facility]* Diagnosis 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, estrogen receptor positive (HCC)- Primary Claudication in peripheral vascular disease (HCC) Peripheral vascular disease, unspecified documented [facility] noteNo assessment information [facility] Work Phone: Evaluation noteNo InformationNort [employer] 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, estrogen receptor positive (HCC)- Primary Rash Rash and other nonspecific skin eruption Other eczema Stage 3a chronic kidney disease (HCC) [facility]* Diagnosis 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, estrogen receptor positive (HCC)- Primary Stage 3a chronic kidney disease (HCC) [facility]* Diagnosis Onset Date Resolution Status Altered mental status acute Diabetes mellitus acute Edema of both lower legs acu te Inflammation acute Leg ulcer, left acute Leg wound, right acute Open wound of left thigh acu te Uses walker acute Varicose veins of both legs with edema acute [facility] Work Phone: Evaluation note* Diagnosis Onset Date Resolution Status Altered mental status acute Diabetes mellitus acute Edema of both lower legs acu te Inflammation acute Leg ulcer, left acute Leg wound, right acute Open wound of left thigh acu te PAD (peripheral artery disease) acute Uses walker acute Varicose veins of both legs with edema acute [facility] Work Phone: Evaluation note* Diagnosis Hav (hallux abducto valgus), left- Primary Venous insufficiency Unspecified venous (peripheral) insufficiency Acquired deformity of left toe 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 to underlying condition with diabetic polyneuropathy, 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 ([facility]) Pain due to onychomycosis of toenails of both feet documented in this encounter [facility] Narrative - Reported* Type Description Date Medical History DIABETES Medical History HTN Medical History ASTHMA Medical History 3 HEART STENT AND 1 LEG Medical History HYPERLIPIDEMIA Medical History HYPOTHYROID Medical History PAD Surgical History STENT PLACEMENTS Surgical History PSEUDO ANURYSM Surgical History BLADDER SUSPENSION Surgical History HYSTERECTOMY Surgical History RLE & RT RENAL DSA'S, ANGIOPLAS TIES & STENTING 04-25-2019 [employer] Other History general Narrative - Reported* Type [...] History VAGINAL ABLASION OF CANCER CELL S [employer] Other Hospital course Narrative No data available for this section General Surgery [place] [facility] Discharge instructions No data available for this section General Surgery [place] Progress note No data available for this section General Surgery [place] Reason for referral (narrative) Referred by: Iliana GAGNON MD Referred by: Iliana GAGNON MD General Surgery [place] reason for referral (narrative)* Diagnostic Procedure Only (Routine) - Pending Review Specialty Diagnoses / Procedures Referred By Jacinta fernandez Referred To Contact [facility] Diagnoses 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, estrogen receptor positive (HCC) Procedures MAGNO DIAGNOSTIC BILATERAL DIAGNOSTIC MAMMOGRAPHY COMPUTER-AIDED DETCJ Winnie Guzmán PA-C [address] [place] [address] [place] [address] [facility] [address] [place] [address] Referral ID Status Reason Start Date Expiration Date Visits Requested Visits Authorized [id number] Pending Review Auto-Generat ed Referral 3 07/19/2024 1 1 [facility] for visit Narrative* Auth/Cert Specialty Diagnoses / Procedures Referred By Jacinta fernandez Referred To Contact Diagnoses Vaginal dysplasia VAGINAL DYSPLASIA Procedures TX OFFICE/OUTPT VISIT,PROCEDURE ONLY TX COMPLETE REMOVAL OF VAGINA WALL TX CYSTOURETHROSCOPY CYSTOSCOPY, VAGINECTOMY Emma Garza MD [address] [facility] [address], [facility] [address] [place] [address] [employer] [address] [place] [address] Referral ID Status Reason Start Date Expiration Date Visits Re quested Visits Authorized [id number] 1 1 [employer] Phone: Summary Purpose Family History No Family History Records Found Relationship Condition Age at Onset Recorded Date/T josephine father Unknown mother Unknown Advance Directives No Advanced Directives Records FoundLatest Code Status on File Code Status Date Activated Date Inactivated Comments Full Code 06/28/2022 6:57 AM Documents on File Type Date Recorded 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 anation Advance Directive(s) 01/16/2017 3:59 PM Documents on File Type Date Recorded 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 anation Advance Directive(s) 01/16/2017 3:59 PM [...] [address] [place] [address] Specialty Diagnoses / Procedures Referred By Contac t Referred To Contact Cardiology Diagnoses Pre-op chest exam Procedures EKG 12 lead Kimmie, [place], PA-C [address] [place] [address] Referral ID Status Reason Start Date Expiration Date Visits Re quested Visits Authorized [id number] Open 11/22/2021 11/22/2022 1 1 Specialty Diagnoses / Procedures Referred By Contac t Referred To Contact Vascular Surgery Diagnoses Claudication in peripheral vascular disease (HCC) Procedures CONSULT TO VASCULAR SURGERY OFFICE/OUTPATIENT [facility] 60-74 MINUTES Wallace Stone MD [address] [place] [id number] Referral ID Status Reason Start Date Expiration Date Visits Requested Visits Authorized [id number] Authorized PCP Requested Referral 11/16/2022 11/09/2023 1 1 Specialty Diagnoses / Procedures Referred By Contac t Referred To Contact Dermatology Diagnoses Rash Other eczema Procedures CONSULT TO DERMATOLOGY OFFICE/OUTPATIENT [facility] 60-74 MINUTES Wallace Stone MD [address] [place] [id number] Referral ID Status Reason Start Date Expiration Date Visits Requested Visits Authorized [id number] Authorized PCP Requested Referral 02/14/2023 02/14/2024 1 [...] and content) DATE CREATED AUTHOR 02/05/2021 [facility] DATE CREATED AUTHOR AUTHOR'S ORGANIZ ATION 01/22/2023 [facility] DATE CREATED AUTHOR AUTHOR'S ORGANIZ ATION 06/22/2023 [facility] DATE CREATED AUTHOR AUTHOR'S ORGANIZ ATION 06/23/2023 [facility] DATE CREATED AUTHOR AUTHOR'S ORGANIZ ATION 07/13/2023 [facility] DATE CREATED AUTHOR AUTHOR'S ORGANIZ ATION 05/03/2024 [facility] DATE CREATED AUTHOR AUTHOR'S ORGANIZ ATION 06/22/2024 [facility] DATE CREATED AUTHOR AUTHOR'S ORGANIZ ATION 07/04/2024 [facility] Reason for Visit (unrecogniz ed section and content) Status Reason Specialty Diagnoses / Procedures Re ferred By Contact Referred To Contact Diagnoses 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 Procedures TX REMOVE VAGINA WALL, PARTIAL TX COLPOSCOPY,CERVIX W/ADJ VAGINA PARTICAL VAGINECTOMY WITH ULTRASONIC SCAPEL VAGINAL COLPOSCOPY WITH MICROSCOPE Kin Abarca MD [address] [facility] [address] [place] [address] [facility] Specialty Diagnoses / Procedures Referred By Contbette t Referred To Contact Diagnoses Vaginal dysplasia VAGINAL DYSPLASIA Procedures TX OFFICE/OUTPT VISIT,PROCEDURE ONLY TX DESTRUCT,VAGINAL LESION(S),SIMPLE CO2 LASER VAPORIZATION OF LESIONS ([facility] CONF# [id number] - JEREMIAS) Emma Garza MD [address] [facility] [address] [place] [address] [facility] [address] [place] [address] Referral ID Status Reason Start Date Expiration Date Visits Re quested Visits Authorized [id number] 1 1 Reason Comments Care Coordination Surgery [...] 25 g 1 06/28/2022 bacitracin-polymyxin b (POLYSPORIN) [id number] UNIT/GM ointment Apply topically 2 times daily. [...] g 0 06/28/2022 06/28/2022 bacitracin-polymyxin b (POLYSPORIN) [id number] UNIT/GM ointment Apply topically 2 times daily. [...] surgery) 1010 (New Bag - Prov ider: Skuhdev Bailey RN)1425 (Paused - Provider: FERNY Mackenzie [...] to gravity)0942 (Restarted - Provider: FERNY Moses CRNA) PRN [...] Provider Active St art: March 26, 2024 [employer] Field Service Engineer Relationship Specialty Start Date End Date Mateus Perry MD [address] [place] [address] PCP - General Family Medicine 03/04/21 [employer] Field Service Engineer Relationship Specialty Start Date End Date Mateus Perry MD [address] [place] [address] PCP - General Family Medicine 03/04/21 [employer] Field Service Engineer Relationship Specialty Start Date End Date Mateus Perry MD [address] [place] [address] PCP - General Family Medicine 03/04/21 [employer] Field Service Engineer Relationship Specialty Start Date End Date Mateus Perry MD [address] [place] [address] PCP - General Family Medicine 03/04/21 Cnc Field Service Engineer Relationship Specialty Start Date End Date Mateus Perry MD PCP - General Family Medicine 01/05/17 Cnc Field Service Engineer Relationship Specialty Start Date End Date Mateus Perry MD PCP - General Family Medicine 01/05/17 Cnc Field Service Engineer Relationship Specialty Start Date End Date Mateus Perry MD PCP - General Family Medicine 01/05/17 Cnc Field Service Engineer Relationship Specialty Start Date End Date Mateus Perry MD PCP - General Family Medicine 01/05/17 Cnc Field Service Engineer Relationship Specialty Start Date End Date Mateus Perry MD PCP - General Family Medicine 01/05/17 Cnc Field Service Engineer Relationship Specialty Start Date End Date Mateus Perry MD PCP - General Family Medicine 01/05/17 Cnc Field Service Engineer Relationship Specialty Start Date End Date Mateus Perry MD [address] [place] [address] PCP - General Family Medicine 03/04/21 Team Status: Inactive Member Role Status Dates Mateus Perry MD Primary Care Provider Active Christiano Gonzales MD Attending Provider Active [employer] Field Service Engineer Relationship Specialty Start Date End Date Mateus Perry MD PCP - General Family Medicine 01/05/17 [employer] Field Service Engineer Relationship Specialty Start Date End Date Mateus Perry MD PCP - General Family Medicine 01/05/17 Team Status: Inactive Member Role Status Dates Mateus Perry MD Primary Care Provider Active Start: May 01, 2024 End: May 01, 2024 Christiano Gonzales MD Attending Provider Active Start: May 01, 2024 End: May 01, 2024 [employer] Field Service Engineer Relationship Specialty Start Date End Date Mateus Perry MD [address] [place] [address] PCP - General Family Medicine 02/14/24 [employer] Field Service Engineer Relationship Specialty Start Date End Date Mateus Perry MD [address] [place] [address] PCP - General Family Medicine 02/14/24 Source Comments (unrecognize d section and content) In the event this informatio n is protected by the Federal Confidentiality of Alcohol and Drug Abuse Patient Records regulations: The Federal rules restrict any use of the information to criminally investigate or prosecute any alcohol or drug abuse patient.[facility] the event this information is protected by the Federal Confidentiality of Alcohol and Drug Abuse Patient Records regulations: The Federal rules restrict any use of the information to criminally investigate or prosecute any alcohol or drug abuse patient.[facility] the event this information is protected by the Federal Confidentiality of Alcohol and Drug Abuse Patient Records regulations: The Federal rules restrict any use of the information to criminally investigate or prosecute any alcohol or drug abuse patient.[facility] the event this information is protected by the Federal Confidentiality of Alcohol and Drug Abuse Patient Records regulations: The Federal rules restrict any use of the information to criminally investigate or prosecute any alcohol or drug abuse patient.[facility] the event this information is protected by the Federal Confidentiality of Alcohol and Drug Abuse Patient Records regulations: The Federal rules restrict any use of the information to criminally investigate or prosecute any alcohol or drug abuse patient.[facility] the event this information is protected by the Federal Confidentiality of Alcohol and Drug Abuse Patient Records regulations: The Federal rules restrict any use of the information to criminally investigate or prosecute any alcohol or drug abuse patient.[facility] the event this information is protected by the Federal Confidentiality of Alcohol and Drug Abuse Patient Records regulations: The Federal rules restrict any use of the information to criminally investigate or prosecute any alcohol or drug abuse patient.[facility] the event this information is protected by the Federal Confidentiality of Alcohol and Drug Abuse Patient Records regulations: The Federal rules restrict any use of the information to criminally investigate or prosecute any alcohol or drug abuse patient.[facility] Goals (unrecognized section and content) Goals may [...] BE BASED ON THE PRIMARY CLINICAL RECORDS. [facility]. provides no warranty or guarantee of the accuracy or completeness of information in this document.
== END 2024-07-11 10:46 | disposition home or self-care (01) ==
LOC: RAD 10:47
PROVIDERS: PCP Family Medicine; Visit Provider Internal Medicine Cardiovascular Disease
DX: I83.893 Varicose veins of bilateral lower extremities with other complications (principal)
CPT/HCPCS: 71046

== ENCOUNTER 2024-07-19 10:35 | Outpatient (OUT) | payer MEDICARE, OTHER, SELFPAY ==
[2024-07-19 10:55] LABS: Basophils Percent Auto 0.5 % (0.2-2.0); Eosinophils Absolute Auto 0.1 10^3/uL (0.0-0.7); Eosinophils Percent Auto 1.5 % (0.9-7.0); Hematocrit 34.4 % (36.0-48.0); Hemoglobin 11.2 g/dL (12.0-16.0); Immature Granulocytes Abs Auto 0.06 10^3/uL (0.00-0.03); Immature Granulocytes Pct Auto 0.7 % (0.0-0.5); Lymphocytes Absolute Auto 2.2 10^3/uL (1.2-3.8); Lymphocytes Percent Auto 24.8 % (20.5-60.0); Mean Corpuscular HGB Conc 32.6 g/dL (29.9-35.2); Mean Corpuscular Hemoglobin 31.5 pg (26.7-34.0); Mean Corpuscular Volume 96.9 fL (81.0-99.0); Mean Platelet Volume 9.4 fL (9.5-13.5); Monocytes Absolute Auto 0.8 10^3/uL (0.3-0.8); Monocytes Percent Auto 9.4 % (1.7-12.0); Neutrophils Absolute Auto 5.5 10^3/uL (1.4-6.5); Neutrophils Percent Auto 63.1 % (43.0-75.0); Platelet Count 231 10^3/uL (150-450); Red Blood Count 3.55 10^6/uL (4.20-5.40); Red Cell Distribution Width 13.9 % (11.0-15.0); White Blood Count 8.7 10^3/uL (4.0-11.0)
--- OUTSIDE RECORDS SUMMARY | 2024-07-19 10:59 | XMS_ITS | CCD ---
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 Name Role Phone Mateus Perry MD Primary Care Provider Mateus Perry Primary Care Physician Mateus Perry MD Primary Care Provider [phone] Mateus Perry MD Primary Care Provider [phone] Mateus Perry Primary Care Provider [phone] MD Christiano Gonzales Attending Provider [phone] Christiano Gonzales Unavailable Millie Storm Unavailable SONALI [...] Unavailable HOY ., DR IGNACIO Consulting Unavailable TARRS, DR JUDSON Plunkett Consulting Unavailable MISC, DR [...] HOY ., DR IGNACIO Primary Care Unavailable TARRS, DR JUDSON Plunkett Consulting Unavailable NILL ., [...] Unavailable HOY ., DR IGNACIO Consulting Unavailable TARRS, DR JUDSON Plunkett Consulting Unavailable HOY ., [...] Care Provider [phone] FERNY Mathews Attending Provider [phone] Mateus Perry Primary Care Unavailable Janell Mathews Admitting Unavailable Janell Mathews Attending Unavailable Mateus Perry Primary Care Unavailable Janell Mathews Admitting Unavailable Janell Mathews Attending Unavailable PEYMAN HENSLEY Attending Unavailable Mateus Perry MD Primary Care Provider [phone] CHERYL FARIA Attending Unavailable RENEE RODRIGUEZ Attending Unavailable BRIAN KERN Attending Unavailable JOSE MARIA KEYES Attending Unavailable BRIAN KERN Admitting Unavailable BRIAN KERN Attending Unavailable BRIAN KERN Referring Unavailable BRIAN KERN Referring Unavailable Allergies Allergy Classification Reported Allergen(s) Allergy Type Date of Onset Reaction(s) Facility (18 sources) Acetaminophen / oxyCODONE; 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: [OXYCODONE-ACETAM INOPHEN] Drug Allergy 3 Other (See Comments), Intolerance, GI Upset [facility] (20 sources) Ciprofloxacin; 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: [ciprofloxacin] Drug Allergy 8 Hives, Urticaria (disorder), Other: See Comments [facility] (20 sources) oxyCODONE; 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: [oxycodone] Drug Allergy 9 Rash, Itching (finding) [facility] (19 sources) cefdinir; 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: [cefdinir] Drug Allergy 3 Vomiting (disorder), Other: See Comments, Vomiting, Other (See Comments) [facility] [place] (11 sources) traMADol; 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: [TRAMADOL] Drug Allergy 3 Mental Status Change, Other (See Comments) [facility] (1 source) Cefuroxime Drug Allergy 2 [facility] Work Phone: (5 sources) Acetaminophen; 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: [acetaminophen] Drug Allergy 9 Rash [facility] (2 sources) Acetaminophen / oxyCODONE Drug Allergy 3 [facility] (1 source) Cefuroxime Drug Allergy 2 [facility] (2 sources) Ciprofloxacin Drug Allergy [facility] (1 source) cefdinir Drug Allergy 4 [facility] (1 source) Ciprofloxacin Drug Allergy 4 [facility] (1 source) oxyCODONE Drug Allergy 4 [facility] (1 source) traMADol Drug Allergy 4 [facility] Medications Current Medications Medication Drug [...] Polymyxin-class Antibacterial Start: End: bacitracin-polymyxin b (POLYSPORIN) 500-37332 UNIT/GM ointment Apply topically 2 times daily. 15 g 1 06/28/2022 06/28/2022 Discontinued (REORDER) cholecalciferol 0.125 mg oral tablet (5 sources) Vitamin D Start: 023 take 1 tablet by mouth once daily [...] take 1 capsule by mouth twice daily [place] 3 1000 MG CAPS Take 1,000 mg by mouth 2 times daily 0 Active End: 05-12-2021 take 1 capsule by mouth once daily [place]-3 Fatty Acids (FISH OIL OMEGA-3) 1000 MG CAPS Take 1,000 mg by mouth daily 0 05/12/2021 Discontinued docusate sodium 50 mg / sennosides, [facility] 8.6 mg oral tablet (2 sources) Start: [...] injector (3 sources) Insulin Analog Start: 12-11-19 24 inject 10 [IU] by subcutaneous injection once [...] 12:00am Start: 09-02-2022 take 2 tablets by [facility] once daily Cytomel 5 mcg Tab 10 mcg = 2 tab(s), Oral, Daily, Refills(s) 0 Start Date: 09/02/22 Status: Ordered take 2 tablets by [facility] once daily liothyronine (Cytomel) 5 MCG tablet Take 2 tablets by mouth Daily Active take [address] [facility] every twenty-four hours Liothyronine Sodium 5 [...] sources) Polyene Antifungal Start: 06-28-2022 nystatin (MYCOSTATIN) 959393 UNIT/GM powder Apply 3 times daily. 60 g 10 06/28/2022 Active nystatin (MYCOST ATIN) 517946 UNIT/GM powder Apply topically 2 times daily as needed 0 Active Vmgxk-2d-Kwh-Epa-Fish Oil ([place]-3 Fish Oil) 300-1,000 mg Capsule (4 sources) Start: 04-25-2019 Dozad-1i-Zwa-Epa-Fish Oil ([place]-3 Fish Oil) 300-1,000 mg Capsule Active 2 [...] on above: Take 2 tablets by mo ut every 6 hours as needed for Pain. [...] by mouth 4 times daily 0 Active Njlzc-3-TCL-EPA-Fish Oil 1,000 mg (120 mg-180 mg) cap (8 sources) take 1 capsule by mouth twice daily Dsbdm-1-JHN-EPA-Fish Oil 1,000 mg (120 mg-180 mg) cap [...] atrial fibrillation; 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: [Paroxysmal atrial fibrillation] Onset: 10-12-2022 09-02-2022 Chronic Chronic kidney disease (9 sources) [...] (4 sources) Brain stem vertigo 09-02-2022 Episodic Conduction disorders (2 sources) Presence of cardiac pacemaker; 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: [Presence of cardiac pacemaker] Onset: 07-17-2024 Chronic Congestive heart failure; nonhypertensive (20 sources) Acute [...] sources) Long-term current use of anticoagulant; 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: [intermediate (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] Onset: 09-09-2022 Episodic Other aftercare (1 source) intermediate (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; 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: [SECURITY ORDERLY CURRNT USE ANTICOAGULANTS] Onset: 11-03-2022 Episodic Other aftercare (1 source) 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 oral hypoglycemic drugs; 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: [PRISON USE ORAL HYPOGLYCEMIC DX] Onset: 11-03-2022 Episodic Other aftercare (1 source) Other alf (current) drug therapy; 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: [OTH SECURITY ORDERLY CURRENT DRUG THERAPY] Onset: 11-03-2022 Episodic Other [...] Onset: 01-16-2017 09-02-2022 Chronic Residual codes; unclassified (8 sources) Dependence on other enabling machines and devices; 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: [Uses walker] Onset: 06-12-2024 12-11-2023 Chronic Residual codes; unclassified (4 sources) [...] fibrillation; 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: [Longstanding persistent atrial fibrillation] Onset: 07-02-2024 Unclassified (2 sources) Other persistent atrial fibrillation; 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: [Other persistent atrial fibrillation] Onset: 07-02-2024 Urinary tract infections (4 sources) Urinary tract infection, site not specified; 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: [UTI SITE NOT SPECIFIED] Onset: 01-19-2023 Episodic Varicose veins of lower extremity (8 sources) Varicose veins of lower limb co-occurrent with edema; 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: [Varicose veins of bilateral lower extremities with other complications] Onset: 06-12-2024 12-11-2023 Episodic Viral infection (4 sources) COVID-19; [...] Onset: 08-13-2022 Episodic Other aftercare (1 source) 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 Family History Problem Relation Age of Onset Stroke Mother Coronary artery disease Father Heart attack Father Family Status - Relation Status Age at Mother Father Level of Service:81891 DE OFFICE/OUTPATIENT ESTABLISHED MOD MDM 30 MIN Reason for Visit and Comments: S/P PACEMAKER [Other] - HERE FOR A WOUND CHECK TODAY Atrial Fibrillation [80] - CHADSVASC score of 7 Coronary Artery Disease [187] Hypertension [455052] Edema [[id number]] - LEGS AND FEET ARE SWOLLEN TODAY, PT WANTS TO KNOW IF SHOULD GO BACK ON LASIX DAILY Normal [facility] HPon 07-10-2024 [facility] Electrophysiology Consult Note MD Cardiology [facility] Reason for visit: Afib HPI: Harman [...] in A-fib. She was just discharged from [facility] for GI bleed. Eliquis and aspirin have been put on hold. She was originally scheduled for DCCV today with Dr. Keyse. Jardiance was stopped, and metoprolol was reduced to 100mg daily. She is feeling okay since discharge from hospital. States she has been in afib for years, and that she is always in afib. She feels no symptoms. Denies chest pain, SOB, dizziness/lightheadedn ess. PMH: Past Medical History: Diagnosis Date Abnormal ECG Arrhythmia Atrial fibrillation ([facility]) CAD (coronary artery disease) Cancer ([facility]) CHF (congestive heart failure) ([facility]) Chronic kidney disease COPD (chronic obstructive pulmonary disease) ([facility] Diabetes mellitus ([facility]) GI bleed Heart murmur Hyperlipidemia Hypertension PVD (peripheral vascular disease) ([facility]) PSH: Past Surgical History: Procedure Laterality Date [...] Comments tendon issues tendon issues Cefdinir Other Tramadol Other Oxycodone Rash Rash & GI upset Oxycodone-Acetaminophe n Other GI upset & rash Weight: 67.1kg Visit Vitals BP 125/82 SpO2 98% Smoking Status Former Meds: No current facility-administered medications on file prior to encounter. Current Outpatient Medications on File Prior to Encounter Medication Sig Dispense Refill anastrozole (Arimidex) 1 mg chemo tablet Take 1 mg by mouth in the morning Swallow whole with a drink of water. aspirin 81 mg EC tablet Take 81 mg by mouth. cholecalciferol (D3-5) 5,000 Units tablet in the morning. febuxostat (Uloric) 40 mg tablet Take 40 mg by mouth in the morning. ferrous sulfate 325 (65 Fe) MG tablet Take 325 mg by mouth two times daily. fish oil concentrate ([place]-3) 120-180 mg capsule Take 1,000 mg by [...] (Lantus) 100 unit/mL (3 mL) injection pen 16 Units in the morning. isosorbide mononitrate ER (Imdur) 60 mg 24 hr tablet Take 60 mg by mouth in the morning. Jardiance 10 mg Take 10 mg by mouth in the morning. levothyroxine [...] 1 tablet (40 mg) by mouth at bedtime. 90 tablet 3 spironolac (more content not included)... Normal [facility] Zayra 07-10-2024 QUETA RN educated pt on d/ c instructions. This included: site care, limited physical activity, resume normal diet, future appointments, medications, and moderate sedation instructions. RN educated pt on when to notify physician and when to go to the hospital. RN encouraged pt to voice any questions or concerns, and answered any questions or concerns if pt verbalized. Pt was wheeled off of unit with all of belongings. Normal [facility] Office Visiton 07-02-2024 Follow-up visit [id number] Harman Mcleod Berna 1940 Provider Department Center 07/02/2024 241-BRIAN KERN [facility] Family History Problem Relation Age of Onset Stroke Mother Coronary artery disease Father Heart attack Father Family Status - Relation Status Age at Mother Father Level of Service:18523 DE OFFICE/OUTPATIENT NEW MODERATE MDM 45 MINUTES Normal [facility] Orders Onlyon 07-02-2024 Orders Only [id number] Harman Mcleod Berna 1940 Provider Department Center 07/02/2024 Jennifer8-WENDY WILL [facility] Family History Problem Relation Age of Onset Stroke Mother Coronary artery disease Father Heart attack Father Family Status - Relation Status Age at Mother Father Normal [facility] Office Visiton 06-12-2024 Follow-up visit [id number] Harman Mcleod Berna 1940 Provider Department Center 06/12/2024 David-JOSE MARIA KEYES CORI [facility] Family History Problem Relation Age of Onset Stroke Mother Coronary artery disease Father Heart attack Father Family Status - Relation Status Age at Mother Father Level of Service:25114 DE OFFICE/OUTPATIENT ESTABLISHED HIGH MDM 40 MIN Normal [facility] 3606-10-2024 36 Pt informed hoys office updated Normal [facility] 37on 05-27-2024 37 Increase Zocor/simvastatin to 40 mg daily- from 20 mg for better cholesterol control Have blood drawn in 2-3 months for liver function and lipid levels- you must be fasting to have drawn Normal [facility] Office Visiton 05-27-2024 Follow-up visit [id number] Harman Mcleod Berna 1940 Date Provider Department Center 05/27/2024 120-CHERYL FARIA [facility] Family History Problem Relation Age of Onset Stroke Mother Coronary artery disease Father Heart attack Father Family Status - Relation Status Age at Mother Father Level of Service:24211 DE OFFICE/OUTPATIENT ESTABLISHED LOW MDM 20 MIN Normal [facility] US ankle/arm indiceson 04-09 US ankle/arm indices [facility] Main [address] [address] Ultrasound Report Signed Patient: Harman Mcleod MR#: [id number] : 1940 Acct:[id number] Age/Sex: 83 / F ADM Date: 04/09/24 Loc: Room: Type: [facility] Attending Dr: Janell Mathews APRN Ordering Provider: [...] Christiano Gonzales MD04/09/2024 2:02 PM Dictation Location: [place] [address] Tech: Kaleigh Ortega Transcribed By: FRANCIA 04/09/24 1402 Dictated By: Christiano Gonzales MD 04/09/24 1401 Signed By: 04/09/24 1402 Normal [facility] US venous duplex LE BIon US venous duplex LE BI [facility] Main [address] [address] Ultrasound Report Signed Patient: Harman Mcleod MR#: [id number] : 1940 Acct:[id number] Age/Sex: 83 / F ADM Date: 04/09/24 Loc: Room: Type: [facility] Attending Dr: Janell Mathews APRN Ordering Provider: [...] Christiano Gonzales MD04/09/2024 2:01 PM Dictation Location: [place] [address] Tech: Francesca Estrada Transcribed By: FRANCIA 04/09/24 1401 Dictated By: Christiano Gonzales MD 04/09/24 1359 Signed By: 04/09/24 1401 Normal [facility] Consultation Noteon 06-21-20 Consultation Note [id number] 0TIFF Normal [facility] CBC W Auto Differential pane l (Bld)on 06-20-2023 Basophils (Bld) [#/Vol] 0.03 10*3/uL Normal <0.11 [facility] Comment on above: Order Comment: Speci men Type: BLOOD SPECIMENOrdering Facility: [facility] Address: [address] [place] [address] Performed By: #### 5 7021-8 ####[facility] LABCLIA [id number] [place] [address] Basophils/100 WBC (Bld) 0.3 % Normal [facility] Comment on above: Order Comment: Speci men Type: BLOOD SPECIMENOrdering Facility: [facility] Address: [address] [place] [address] Performed By: #### 5 7021-8 ####[facility] LABCLIA [id number] [place] [address] Differential cell count method Nom (Bld) Auto Normal [facility] Comment on above: Order Comment: Speci men Type: BLOOD SPECIMENOrdering Facility: [facility] Address: [address] [place] [address] Performed By: #### 5 7021-8 ####[facility] LABCLIA [id number] [place] [address] Eosinophils (Bld) [#/Vol] 10*3/uL Normal <0.46 [facility] Comment on above: Order Comment: Speci men Type: BLOOD SPECIMENOrdering Facility: [facility] Address: [address] [place] [address] Performed By: #### 5 7021-8 ####[facility] LABCLIA [id number] [place] [address] Eosinophils/100 WBC (Bld) 0.2 % Normal [facility] Comment on above: Order Comment: Speci men Type: BLOOD SPECIMENOrdering Facility: [facility] Address: [address] [place] [address] Performed By: #### 5 7021-8 ####[facility] LABCLIA [id number] [place] [address] Erythrocyte distribution width (RBC) [Ratio] 14.4 % Normal 11.5-15.0 [facility] Comment on above: Order Comment: Speci men Type: BLOOD SPECIMENOrdering Facility: [facility] Address: [address] [place] [address] Performed By: #### 5 7021-8 ####[facility] LABCLIA [id number] [place] [address] Hematocrit (Bld) [Volume fraction] 34.9 % Low 36.0-46.0 [facility] Comment on above: Order Comment: Speci men Type: BLOOD SPECIMENOrdering Facility: [facility] Address: [address] [place] [address] Performed By: #### 5 7021-8 ####[facility] LABCLIA [id number] [place] [address] Hemoglobin (Bld) [Mass/Vol] 10.9 g/dL Low 11.5-15.5 [facility] Comment on above: Order Comment: Speci men Type: BLOOD SPECIMENOrdering Facility: [facility] Address: [address] [place] [address] Performed By: #### 5 7021-8 ####[facility] LABCLIA [id number] [place] [address] Immature granulocytes (Bld) [#/Vol] 0.11 10*3/uL High <0.10 [facility] Comment on above: Order Comment: Speci men Type: BLOOD SPECIMENOrdering Facility: [facility] Address: [address] [place] [address] Performed By: #### 5 7021-8 ####[facility] LABCLIA [id number] [place] [address] Immature granulocytes/100 WBC (Bld) 1.1 % Normal [facility] Comment on above: Order Comment: Speci men Type: BLOOD SPECIMENOrdering Facility: [facility] Address: [address] [place] [address] Performed By: #### 5 7021-8 ####[facility] LABCLIA [id number] [place] [address] Lymphocytes (Bld) [#/Vol] 1.97 10*3/uL Normal 1.00-4.00 [facility] Comment on above: Order Comment: Speci men Type: BLOOD SPECIMENOrdering Facility: [facility] Address: [address] [place] [address] Performed By: #### 5 7021-8 ####[facility] LABCLIA [id number] [place] [address] Lymphocytes/100 WBC (Bld) 19.3 % Normal [facility] Comment on above: Order Comment: Speci men Type: BLOOD SPECIMENOrdering Facility: [facility] Address: [address] [place] [address] Performed By: #### 5 7021-8 ####[facility] LABCLIA [id number] [place] [address] MCH (RBC) [Entitic mass] 29.9 pg Normal 26.0-34.0 [facility] Comment on above: Order Comment: Speci men Type: BLOOD SPECIMENOrdering Facility: [facility] Address: [address] [place] [address] Performed By: #### 5 7021-8 ####[facility] LABIA [id number] [place] [address] MCHC (RBC) [Mass/Vol] 31.2 g/dL Normal 30.5-36.0 [facility] Comment on above: Order Comment: Speci men Type: BLOOD SPECIMENOrdering Facility: [facility] Address: [address] [place] [address] Performed By: #### 5 7021-8 ####[facility] LABCLIA [id number] [place] [address] MCV (RBC) [Entitic vol] 95.6 fL Normal 80.0-100.0 [facility] Comment on above: Order Comment: Speci men Type: BLOOD SPECIMENOrdering Facility: [facility] Address: [address] [place] [address] Performed By: #### 5 7021-8 ####[facility] LABIA [id number] [place] [address] Monocytes (Bld) [#/Vol] 0.49 10*3/uL Normal <0.87 [facility] Comment on above: Order Comment: Speci men Type: BLOOD SPECIMENOrdering Facility: [facility] Address: [address] [place] [address] Performed By: #### 5 7021-8 ####[facility] LABCLIA [id number] [place] [address] Monocytes/100 WBC (Bld) 4.8 % Normal [facility] Comment on above: Order Comment: Speci men Type: BLOOD SPECIMENOrdering Facility: [facility] Address: [address] [place] [address] Performed By: #### 5 7021-8 ####[facility] LABCLIA [id number] [place] [address] Neutrophils (Bld) [#/Vol] 7.59 10*3/uL High 1.45-7.50 [facility] Comment on above: Order Comment: Speci men Type: BLOOD SPECIMENOrdering Facility: [facility] Address: [address] [place] [address] Performed By: #### 5 7021-8 ####[facility] LABCLIA [id number] [place] [address] Neutrophils/100 WBC (Bld) 74.3 % Normal [facility] Comment on above: Order Comment: Speci men Type: BLOOD SPECIMENOrdering Facility: [facility] Address: [address] [place] [address] Performed By: #### 5 7021-8 ####[facility] LABCLIA [id number] [place] [address] Nucleated RBC (Bld) [#/Vol] 10*3/uL Normal <0.01 [facility] Comment on above: Order Comment: Speci men Type: BLOOD SPECIMENOrdering Facility: [facility] Address: [address] [place] [address] Performed By: #### 5 7021-8 ####[facility] LABCLIA [id number] [place] [address] Nucleated RBC/100 WBC (Bld) [Ratio] 0.0 /100 WBC Normal [facility] Comment on above: Order Comment: Speci men Type: BLOOD SPECIMENOrdering Facility: [facility] Address: [address] [place] [address] Performed By: #### 5 7021-8 ####[facility] LABCLIA [id number] [place] [address] Platelet mean volume (Bld) [Entitic vol] 9.3 fL Normal 9.0-12.7 [facility] Comment on above: Order Comment: Speci men Type: BLOOD SPECIMENOrdering Facility: [facility] Address: [address] [place] [address] Performed By: #### 5 7021-8 ####[facility] LABCLIA [id number] [place] [address] Platelets (Bld) [#/Vol] 275 10*3/uL Normal 150-400 [facility] Comment on above: Order Comment: Speci men Type: BLOOD SPECIMENOrdering Facility: [facility] Address: [address] [place] [address] Performed By: #### 5 7021-8 ####[facility] LABCLIA [id number] [place] [address] RBC (Bld) [#/Vol] 3.65 10*6/uL Low 3.90-5.20 [facility] Comment on above: Order Comment: Speci men Type: BLOOD SPECIMENOrdering Facility: [facility] Address: [address] [place] [address] Performed By: #### 5 7021-8 ####[facility] LABCLIA [id number] [place] [address] WBC (Bld) [#/Vol] 10.21 10*3/uL Normal 3.70-11.00 [facility] Comment on above: Order Comment: Speci men Type: BLOOD SPECIMENOrdering Facility: [facility] Address: [address] [place] [address] Performed By: #### 5 7021-8 ####[facility] LABIA [id number] [place] [address] CNOVSPon 06-20-2023 CNOVSP Visit (SP) Office (HEMASA) HARMAN MCLEOD ([id number]) 1940 F Date Time Provider Department 06/20/23 2:30 PM WINNIE GUZMÁN During your visit today, we recorded the following information about you: Temperature Pulse Respiration Blood pressure 97.4 degrees 72/minute 16/minute 138/55 Weight Height 84.6 kg 1.549 m Winnie Guzmán PA-C 06/20/2023 3:58 PM Signed PATIENT NAME: Harman Mcleod CLINIC NO.: [id number] ATTENDING PHYSICIAN: Wallace Stone MD DATE OF [...] Negative LVI, 2 SNL negative, ER and DE >95% positive, Her2 IHC 1+ Treatment History: [...] 06/20/2023 1.77 (more content not included)... Normal [facility] Comprehensive metabolic 2000 panelon 06-20-2023 Albumin [Mass/Vol] 4.0 g/dL Normal 3.9-4.9 [facility] Comment on above: Order Comment: Speci men Type: BLOOD SPECIMENOrdering Facility: [facility] Address: [address] [place] [address] Performed By: #### 2 4323-8 ####[facility] LABCLIA [id number] [place] [address] ALP [Catalytic activity/Vol] 72 U/L Normal 34-123 [facility] Comment on above: Order Comment: Speci men Type: BLOOD SPECIMENOrdering Facility: [facility] Address: [address] [place] [address] Performed By: #### 2 4323-8 ####[facility] LABCLIA [id number] [place] [address] ALT [Catalytic activity/Vol] 17 U/L Normal 7-38 [facility] Comment on above: Order Comment: Speci men Type: BLOOD SPECIMENOrdering Facility: [facility] Address: [address] [place] [address] Performed By: #### 2 4323-8 ####[facility] LABCLIA [id number] [place] [address] Anion gap [Moles/Vol] 9 mmol/L Normal 9-18 [facility] Comment on above: Order Comment: Speci men Type: BLOOD SPECIMENOrdering Facility: [facility] Address: [address] [place] [address] Performed By: #### 2 4323-8 ####[facility] LABCLIA [id number] [place] [address] AST [Catalytic activity/Vol] 11 U/L Low 13-35 [facility] Comment on above: Order Comment: Speci men Type: BLOOD SPECIMENOrdering Facility: [facility] Address: [address] [place] [address] Performed By: #### 2 4323-8 ####[facility] LABCLIA [id number] [place] [address] Bilirubin [Mass/Vol] 0.2 mg/dL Normal 0.2-1.3 [facility] Comment on above: Order Comment: Speci men Type: BLOOD SPECIMENOrdering Facility: [facility] Address: [address] [place] [address] Performed By: #### 2 4323-8 ####[facility] LABCLIA [id number] [place] [address] Calcium [Mass/Vol] 10.1 mg/dL Normal 8.5-10.2 [facility] Comment on above: Order Comment: Speci men Type: BLOOD SPECIMENOrdering Facility: [facility] Address: [address] [place] [address] Performed By: #### 2 4323-8 ####[facility] LABCLIA [id number] [place] [address] Chloride [Moles/Vol] 103 mmol/L Normal 97-105 [facility] Comment on above: Order Comment: Speci men Type: BLOOD SPECIMENOrdering Facility: [facility] Address: [address] [place] [address] Performed By: #### 2 4323-8 ####[facility] LABCLIA [id number] [place] [address] CO2 [Moles/Vol] 30 mmol/L Normal 22-30 [facility] Comment on above: Order Comment: Speci men Type: BLOOD SPECIMENOrdering Facility: [facility] Address: [address] [place] [address] Performed By: #### 2 4323-8 ####[facility] LABCLIA [id number] [place] [address] Creatinine [Mass/Vol] 1.77 mg/dL High 0.58-0.96 [facility] Comment on above: Order Comment: Speci men Type: BLOOD SPECIMENOrdering Facility: [facility] Address: [address] [place] [address] Performed By: #### 2 4323-8 ####[facility] LABCLIA [id number] [place] [address] Creatinine and Glomerular filtration rate.predicted panel (S/P/Bld) 29 mL/min/1.73m??? Low >=60 [facility] Comment on above: Order Comment: Speci men Type: BLOOD SPECIMENOrdering Facility: [facility] Address: [address] [place] [address] Result Comment: Ramila mated Glomerular Filtration Rate [...] actual GFR. Performed By: #### 2 4323-8 ####[facility] LABCLIA [id number] [place] [address] Glucose [Mass/Vol] 273 mg/dL High 74-99 [facility] Comment on above: Order Comment: Speci men Type: BLOOD SPECIMENOrdering Facility: [facility] Address: [address] [place] [address] Result Comment: The [place] Diabetes [employer] (ADA) provides guidance for cutoff [...] Standards of Medical Care in Diabetes 2016, [place] [employer]. Diabetes Care. 2016.39(Suppl 1). Performed By: #### 2 4323-8 ####[facility] LABCLIA [id number] [place] [address] Potassium [Moles/Vol] 5.1 mmol/L Normal 3.7-5.1 [facility] Comment on above: Order Comment: Speci men Type: BLOOD SPECIMENOrdering Facility: [facility] Address: [address] [place] [address] Performed By: #### 2 4323-8 ####[facility] LABCLIA [id number] [place] [address] Protein [Mass/Vol] 6.4 g/dL Normal 6.3-8.0 [facility] Comment on above: Order Comment: Speci men Type: BLOOD SPECIMENOrdering Facility: [facility] Address: [address] [place] [address] Performed By: #### 2 4323-8 ####[facility] LABCLIA [id number] [place] [address] Sodium [Moles/Vol] 142 mmol/L Normal 136-144 [facility] Comment on above: Order Comment: Speci men Type: BLOOD SPECIMENOrdering Facility: [facility] Address: [address] [place] [address] Performed By: #### 2 4323-8 ####[facility] LABCLIA [id number] [place] [address] Urea nitrogen [Mass/Vol] 40 mg/dL High 7-21 [facility] Comment on above: Order Comment: Speci men Type: BLOOD SPECIMENOrdering Facility: [facility] Address: [place] [address] Performed By: #### 2 4323-8 ####[facility] LABCLIA [id number] [place] [address] Vaginitis DNA Probeon 2022 Manjula Negative Normal NEG [facility] Comment on above: Result Comment: for Manjula sp. Method of testing is a DNA probe intended for detection and identification of Manjula species, Gardnerella vaginalis, and Trichomonas vaginalis nucleic acid in vaginal fluid specimens from patients with symptoms of vaginitis/vaginosis. Performed By: #### V AGP #### [address] [address] [employer] Executive: Fidel Hylton MD Gardnerella Negative Normal NEG [facility] Comment on above: Result Comment: for Gardnerella vaginalis Performed By: #### V AGP #### [employer] [address] [place] [address] [phone] International Account Executive: Fidel Hylton MD Trichomonas Negative Normal NEG [facility] Comment on above: Result Comment: for Trichomonas Vaginalis Performed By: #### V AGP #### [facility] [employer] [address] [place] [phone] [employer] Account Executive: Fidel Hylton MD Source .VAGINAL SWAB Normal [facility] Comment on above: Performed By: #### V AGP #### [facility] [address] [place] [address] [phone] International Account Executive: Fidel Hylton MD OPERATIVE REPORTon 3 OPERATIVE REPORT [address] [address] OPERATIVE REPORT PATIENT NAME: HARMAN MCLEOD : 1940 MED REC NO: [id number] ROOM: ACCOUNT NO: [id number] ADMIT DATE: 03/06/2023 PROVIDER: Emma Garza MD DATE OF PROCEDURE: 03/06/2023 PREOPERATIVE DIAGNOSIS: Recurrent vaginal dysplasia. POSTOPERATIVE DIAGNOSIS: Recurrent vaginal dysplasia. OPERATION PERFORMED: Examination under anesthesia, carbon dioxide laser vaporization of vaginal dysplasia. COMPLICATIONS: None. BLOOD LOSS: Minimal. SURGEON: Emma Garza MD PROJECT ADMIN: Mauri (resident). DISPOSITION: The patient to recovery room stable. SPECIMENS: No specimen sent to Pathology. OPERATIVE FINDINGS: The patient had a small 1-2 cm area of jjreahoz-bg-azyese dysplasia along the anterior vagina from 12 [...] for the entire procedure. EMMA GARZA MD CL/S_ROSE_01 Doc#: [id number] CC: Normal [facility] Consultation Noteon 02-20-20 23 Consultation Note [id number] 0CD:127 Normal [facility] CBC W Auto Differential pane l (Bld)on 02-14-2023 Basophils (Bld) [#/Vol] 0.04 10*3/uL Normal <0.11 [facility] Comment on above: Order Comment: Speci men Type: BLOOD SPECIMENOrdering Facility: [facility] Address: [address] [address] Performed By: #### 5 7021-8 ####[facility] LABCLIA [id number] [place] [address] Basophils/100 WBC (Bld) 0.4 % Normal [facility] Comment on above: Order Comment: Speci men Type: BLOOD SPECIMENOrdering Facility: [facility] Address: [address] [place] [address] Performed By: #### 5 7021-8 ####[facility] LABCLIA [id number] [place] [address] Differential cell count method Nom (Bld) Auto Normal [facility] Comment on above: Order Comment: Speci men Type: BLOOD SPECIMENOrdering Facility: [facility] Address: [address] [address] Performed By: #### 5 7021-8 ####[facility] LABCLIA [id number] [place] [address] Eosinophils (Bld) [#/Vol] 0.20 10*3/uL Normal <0.46 [facility] Comment on above: Order Comment: Speci men Type: BLOOD SPECIMENOrdering Facility: [facility] Address: [address] [address] Performed By: #### 5 7021-8 ####[facility] LABCLIA [id number] [place] [address] Eosinophils/100 WBC (Bld) 1.9 % Normal [facility] Comment on above: Order Comment: Speci men Type: BLOOD SPECIMENOrdering Facility: [facility] Address: [address] [address] Performed By: #### 5 7021-8 ####[facility] LABCLIA [id number] [place] [address] Erythrocyte distribution width (RBC) [Ratio] 14.1 % Normal 11.5-15.0 [facility] Comment on above: Order Comment: Speci men Type: BLOOD SPECIMENOrdering Facility: [facility] Address: [address] [place] [address] Performed By: #### 5 7021-8 ####[facility] LABCLIA [id number] [place] [address] Hematocrit (Bld) [Volume fraction] 38.4 % Normal 36.0-46.0 [facility] Comment on above: Order Comment: Speci men Type: BLOOD SPECIMENOrdering Facility: [facility] Address: [address] [place] [address] Performed By: #### 5 7021-8 ####[facility] LABIA [id number] [place] [address] Hemoglobin (Bld) [Mass/Vol] 12.2 g/dL Normal 11.5-15.5 [facility] Comment on above: Order Comment: Speci men Type: BLOOD SPECIMENOrdering Facility: [facility] Address: [address] [place] [address] Performed By: #### 5 7021-8 ####[facility] LABIA [id number] [place] [address] Immature granulocytes (Bld) [#/Vol] 0.06 10*3/uL Normal <0.10 [facility] Comment on above: Order Comment: Speci men Type: BLOOD SPECIMENOrdering Facility: [facility] Address: [address] [place] [address] Performed By: #### 5 7021-8 ####[facility] LABIA [id number] [place] [address] Immature granulocytes/100 WBC (Bld) 0.6 % Normal [facility] Comment on above: Order Comment: Speci men Type: BLOOD SPECIMENOrdering Facility: [facility] Address: [address] [address] Performed By: #### 5 7021-8 ####[facility] LABCLIA [id number] [place] [address] Lymphocytes (Bld) [#/Vol] 2.56 10*3/uL Normal 1.00-4.00 [facility] Comment on above: Order Comment: Speci men Type: BLOOD SPECIMENOrdering Facility: [facility] Address: [address] [place] [address] Performed By: #### 5 7021-8 ####[facility] LABCLIA [id number] [place] [address] Lymphocytes/100 WBC (Bld) 24.6 % Normal [facility] Comment on above: Order Comment: Speci men Type: BLOOD SPECIMENOrdering Facility: [facility] Address: [address] [place] [address] Performed By: #### 5 7021-8 ####[facility] LABCLIA [id number] [place] [address] MCH (RBC) [Entitic mass] 30.0 pg Normal 26.0-34.0 [facility] Comment on above: Order Comment: Speci men Type: BLOOD SPECIMENOrdering Facility: [facility] Address: [address] [place] [address] Performed By: #### 5 7021-8 ####[facility] LABCLIA [id number] [place] [address] MCHC (RBC) [Mass/Vol] 31.8 g/dL Normal 30.5-36.0 [facility] Comment on above: Order Comment: Speci men Type: BLOOD SPECIMENOrdering Facility: [facility] Address: [address] [place] [address] Performed By: #### 5 7021-8 ####[facility] LABCLIA [id number] [place] [address] MCV (RBC) [Entitic vol] 94.3 fL Normal 80.0-100.0 [facility] Comment on above: Order Comment: Speci men Type: BLOOD SPECIMENOrdering Facility: [facility] Address: [address] [place] [address] Performed By: #### 5 7021-8 ####[facility] LABCLIA [id number] [place] [address] Monocytes (Bld) [#/Vol] 0.86 10*3/uL Normal <0.87 [facility] Comment on above: Order Comment: Speci men Type: BLOOD SPECIMENOrdering Facility: [facility] Address: [address] [place] [address] Performed By: #### 5 7021-8 ####[facility] LABCLIA [id number] [place] [address] Monocytes/100 WBC (Bld) 8.3 % Normal [facility] Comment on above: Order Comment: Speci men Type: BLOOD SPECIMENOrdering Facility: [facility] Address: [address] [place] [address] Performed By: #### 5 7021-8 ####[facility] LABCLIA [id number] [place] [address] Neutrophils (Bld) [#/Vol] 6.69 10*3/uL Normal 1.45-7.50 [facility] Comment on above: Order Comment: Speci men Type: BLOOD SPECIMENOrdering Facility: [facility] Address: [address] [place] [address] Performed By: #### 5 7021-8 ####[facility] LABIA [id number] [place] [address] Neutrophils/100 WBC (Bld) 64.2 % Normal [facility] Comment on above: Order Comment: Speci men Type: BLOOD SPECIMENOrdering Facility: [facility] Address: [address] [address] Performed By: #### 5 7021-8 ####[facility] LABCLIA [id number] [place] [address] Nucleated RBC (Bld) [#/Vol] 10*3/uL Normal <0.01 [facility] Comment on above: Order Comment: Speci men Type: BLOOD SPECIMENOrdering Facility: [facility] Address: [address] [address] Performed By: #### 5 7021-8 ####[facility] LABIA [id number] [place] [address] Nucleated RBC/100 WBC (Bld) [Ratio] 0.0 /100 WBC Normal [facility] Comment on above: Order Comment: Speci men Type: BLOOD SPECIMENOrdering Facility: [facility] Address: [address] [place] [address] Performed By: #### 5 7021-8 ####[facility] LABIA [id number] [place] [address] Platelet mean volume (Bld) [Entitic vol] 9.6 fL Normal 9.0-12.7 [facility] Comment on above: Order Comment: Speci men Type: BLOOD SPECIMENOrdering Facility: [facility] Address: [address] [address] Performed By: #### 5 7021-8 ####[facility] LABCLIA [id number] [place] [address] Platelets (Bld) [#/Vol] 271 10*3/uL Normal 150-400 [facility] Comment on above: Order Comment: Speci men Type: BLOOD SPECIMENOrdering Facility: [facility] Address: [address] [place] [address] Performed By: #### 5 7021-8 ####[facility] LABCLIA [id number] [place] [address] RBC (Bld) [#/Vol] 4.07 10*6/uL Normal 3.90-5.20 [facility] Comment on above: Order Comment: Speci men Type: BLOOD SPECIMENOrdering Facility: [facility] Address: [address] [place] [address] Performed By: #### 5 7021-8 ####[facility] LABCLIA [id number] [place] [address] WBC (Bld) [#/Vol] 10.41 10*3/uL Normal 3.70-11.00 [facility] Comment on above: Order Comment: Speci men Type: BLOOD SPECIMENOrdering Facility: [facility] Address: [address] [place] [address] Performed By: #### 5 7021-8 ####[facility] LABCLIA [id number] [place] [address] CNOVSPon 02-14-2023 CNOVSP Visit (SP) Office ([facility]) HARMAN MCLEOD ([id number]) 1940 F Date Time Provider Department 02/14/23 10:30 AM WALLACE STONE During your visit today, we recorded the following information about you: Temperature Pulse Respiration Blood pressure 97.4 degrees 102/minute 16/minute 151/90 Weight Height 84.5 kg 1.549 m Wallace Stone MD 02/14/2023 10:49 AM Signed PATIENT NAME: Harman Berna [facility] NO.: [id number] ATTENDING PHYSICIAN: Wallace Stone MD DATE OF [...] Negative LVI, 2 SNL negative, ER and DE >95% positive, Her2 IHC 1+ Treatment History: [...] : Deferre (more content not included)... Normal [facility] 02-14-2023 [facility] HAR[facility]LE[facility] ([id number]) 1940 F Date Time Provider Department 02/14/23 WALLACE STONE During your visit today, we recorded the following information about you: Angelica Bhakta Sec 02/14/2023 11:00 AM Signed Please ref to [facility] for Consult dx eczema They will call the patient to schedule after review of records. Janeth, Please fax records Dudley, Please check on this appt. Kira Ko [facility] 02/14/2023 1:14 PM Signed Records faxed to [facility]. Adriana Pereira Pss 02/22/2023 8:35 AM Signed Called [facility] office spoke with Coco. She states they [...] daily at bedtime. Cut in half - Bhvwv-2-UQB-EPA-Fish Oil 1,000 mg (120 mg-180 mg) cap Take 2 g by mouth twice daily. - isosorbide mononitrate ER (IMDUR) 60 mg 24 hr tablet Take 60 mg by mouth twice daily. 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 Stage 3a chronic kidney disease (HCC) [N18.31] 02/14/2023 Encounter Status:Closed by ANGELICA MILLAN on 02/28/23 Normal [facility] Comprehensive metabolic 2000 panelon 02-14-2023 Albumin [Mass/Vol] 4.1 g/dL Normal 3.9-4.9 [facility] Comment on above: Order Comment: Speci men Type: BLOOD SPECIMENOrdering Facility: [facility] Address: [address] [address] Performed By: #### 2 4323-8 ####[facility] LABCLIA [id number] [place] [address] ALP [Catalytic activity/Vol] 106 U/L Normal 34-123 [facility] Comment on above: Order Comment: Speci men Type: BLOOD SPECIMENOrdering Facility: [facility] Address: [address] [address] Performed By: #### 2 4323-8 ####[facility] LABCLIA [id number] [place] [address] ALT [Catalytic activity/Vol] 14 U/L Normal 7-38 [facility] Comment on above: Order Comment: Speci men Type: BLOOD SPECIMENOrdering Facility: [facility] Address: [address] [place] [address] Performed By: #### 2 4323-8 ####[facility] LABCLIA [id number] [place] [address] Anion gap [Moles/Vol] 11 mmol/L Normal 9-18 [facility] Comment on above: Order Comment: Speci men Type: BLOOD SPECIMENOrdering Facility: [facility] Address: [address] [place] [address] Performed By: #### 2 4323-8 ####[facility] LABCLIA [id number] [place] [address] AST [Catalytic activity/Vol] 11 U/L Low 13-35 [facility] Comment on above: Order Comment: Speci men Type: BLOOD SPECIMENOrdering Facility: [facility] Address: [address] [place] [address] Performed By: #### 2 4323-8 ####[facility] LABCLIA [id number] [place] [address] Bilirubin [Mass/Vol] 0.3 mg/dL Normal 0.2-1.3 [facility] Comment on above: Order Comment: Speci men Type: BLOOD SPECIMENOrdering Facility: [facility] Address: [address] [place] [address] Performed By: #### 2 4323-8 ####[facility] LABCLIA [id number] [place] [address] Calcium [Mass/Vol] 10.2 mg/dL Normal 8.5-10.2 [facility] Comment on above: Order Comment: Speci men Type: BLOOD SPECIMENOrdering Facility: [facility] Address: [address] [address] Performed By: #### 2 4323-8 ####[facility] LABCLIA [id number] [place] [address] Chloride [Moles/Vol] 98 mmol/L Normal 97-105 [facility] Comment on above: Order Comment: Speci men Type: BLOOD SPECIMENOrdering Facility: [facility] Address: [address] [place] [address] Performed By: #### 2 4323-8 ####[facility] LABCLIA [id number] [place] [address] CO2 [Moles/Vol] 31 mmol/L High 22-30 [facility] Comment on above: Order Comment: Speci men Type: BLOOD SPECIMENOrdering Facility: [facility] Address: [address] [place] [address] Performed By: #### 2 4323-8 ####[facility] LABCLIA [id number] [place] [address] Creatinine [Mass/Vol] 1.25 mg/dL High 0.58-0.96 [facility] Comment on above: Order Comment: Speci men Type: BLOOD SPECIMENOrdering Facility: [facility] Address: [address] [place] [address] Performed By: #### 2 4323-8 ####[facility] LABCLIA [id number] [place] [address] ESTIMATED GLOMERULAR FILTRATION RATE 44 mL/min/1.73m??? Low >=60 [facility] Comment on above: Order Comment: Speci men Type: BLOOD SPECIMENOrdering Facility: [facility] Address: [address] [place] [address] Result Comment: Ramila mated Glomerular Filtration Rate [...] actual GFR. Performed By: #### 2 4323-8 ####[facility] LABCLIA [id number] [place] [address] Glucose [Mass/Vol] 285 mg/dL High 74-99 [facility] Comment on above: Order Comment: Dimple de santiago Type: BLOOD SPECIMENOrdering Facility: [facility] Address: [address] [phone] Result Comment: The [place] [employer] (ADA) provides guidance for cutoff [...] Standards of Medical Care in Diabetes 2016, [place] [employer]. Diabetes Care. 2016.39(Suppl 1). Performed By: #### 2 4323-8 ####[facility] LABCLIA [id number] [place] [address] Potassium [Moles/Vol] 3.7 mmol/L Normal 3.7-5.1 [facility] Comment on above: Order Comment: Dimple de santiago Type: BLOOD SPECIMENOrdering Facility: [facility] Address: [address] [phone] Performed By: #### 2 4323-8 ####[facility] LABCLIA [id number] [place] [address] Protein [Mass/Vol] 7.3 g/dL Normal 6.3-8.0 [facility] Comment on above: Order Comment: Dimple de santiago Type: BLOOD SPECIMENOrdering Facility: [facility] Address: [address] [place], [place] [phone] Performed By: #### 2 4323-8 ####[facility] LABCLIA [id number] [place] [address] Sodium [Moles/Vol] 140 mmol/L Normal 136-144 [facility] Comment on above: Order Comment: Speci men Type: BLOOD SPECIMENOrdering Facility: [facility] Address: [address] [address] Performed By: #### 2 4323-8 ####[facility] LABCLIA [id number] [place] [address] Urea nitrogen [Mass/Vol] 33 mg/dL High 7-21 [facility] Comment on above: Order Comment: Speci men Type: BLOOD SPECIMENOrdering Facility: [facility] Address: [address] [address] Performed By: #### 2 4323-8 ####[facility] LABCLIA [id number] [place] [address] Consultation Noteon 02-15-20 23 Consultation Note [id number]#1.0 0CD:127 Normal [facility] Comment on above: Other Comment: TRACEY RUTH CRR CULTURE URINEon 01-19-2023 CULTURE URINE Culture Observations : VERY LIGHT GROWTH OF MIXED GENITAL SAGE. NO POTENTIAL PATHOGENS SEEN. Normal [facility] Comment on above: Performed By: #### U RCX ####[facility] [id number] [address]Dr. Omid Bowden [facility] R[facility]OM W/MICROSCOPICon BACTERIA TRACE Abnormal NONE SEEN [facility] Comment on above: Performed By: #### H GB #### [facility] [id number] Omid Bowden Bilirubin Ql (U) Negative Normal NEGATIVE The [facility] Comment on above: Performed By: #### H GB #### [facility] [address] [address] [address] Omid Bowden CAST NONE SEEN Normal NONE SEEN [facility] Comment on above: Performed By: #### H GB #### [facility] [address] [address] [address] Omid Bowden Clarity (U) CLEAR Normal CLEAR [facility] Comment on above: Performed By: #### H GB #### [facility] [address] [place] [address] Dr. Omid Bowden Color (U) LT. YELLOW Normal YELLOW [facility] Comment on above: Performed By: #### H GB #### [facility] [address] [address] [address] Omid Bowden Crystals LM Nom (Urine sed) NONE SEEN Normal NONE SEEN [facility] Comment on above: Performed By: #### H GB #### [facility] [address] [place] [address] Dr. Omid Bowden Epithelial cells LM Ql (Urine sed) RARE Normal NONE SEEN /RARE [facility] Comment on above: Performed By: #### H GB #### [facility] [address] [place] [address] Dr. Omid Bowden Glucose Ql (U) Negative Normal NEGATIVE [facility] Comment on above: Performed By: #### H GB #### [facility] [address] [place] [address] Dr. Omid Bowden Hemoglobin Ql (U) Negative Normal NEGATIVE The [facility] Comment on above: Performed By: #### H GB #### [facility] [address] [place] [address] Dr. Omid Bowden Ketones Ql (U) Negative Normal NEGATIVE [facility] Comment on above: Performed By: #### H GB #### [facility] [address] [address] [address] Omid Bowden LEUKOCYTES SMALL Abnormal NEGATIVE [facility] Comment on above: Performed By: #### H GB #### [facility] [address] [place] [address] Dr. Omid Bowden MUCOUS NONE SEEN Normal NONE SEEN [facility] Comment on above: Performed By: #### H GB #### [facility] [address] [place] [address] Dr. Omid Bowden Nitrite Ql (U) Negative Normal NEGATIVE [facility] Comment on above: Performed By: #### H GB #### [facility] [address] [place] [address] Dr. Omid Bowden pH (U) 6.0 [pH] Normal 5-9 [facility] Comment on above: Performed By: #### H GB #### [facility] [address] [place] [address] Dr. Omid Bowden RBC 0-2 Normal 0-2 [facility] Comment on above: Performed By: #### H GB #### [facility] [address] [place] [address] Dr. Omid Bowden SPEC GRAVITY <=1.005 Abnormal 1.005-<=1.0 25 [facility] Comment on above: Performed By: #### H GB #### [facility] [address] [place] [address] Dr. Omid Bowden UA PROTEIN Negative Normal NEGATIVE/ TRACE [facility] Comment on above: Performed By: #### H GB #### [facility] [address] [place] [address] Dr. Omid Bowden Urobilinogen Qn (U) 0.2 {Jose'U}/dL Normal 0.2 - 1. 0 [facility] Comment on above: Performed By: #### H GB #### [facility] [address] [place] [address] Dr. Omid Bowden WBC 0-2 Abnormal NONE SEEN [facility] Comment on above: Performed By: #### H GB #### [facility] [address] [place] [address] Dr. Omid Bowden Creatinine [Mass/volume] in Serum or PlasmaOrdered By: Christiano Gonzales on 11-29-2022 Creatinine [Mass/Vol] 1.37 mg/dL 0.60-1.20 [facility] [place] [facility] - Chemistry and C hemistry - challengeOrdered By: Christiano Gonzales on 11-29-2022 GFR/1.73 sq M.predicted MDRD (S/P/Bld) [Vol rate/Area] 39.034 mL/min/{1.73_m2} [facility] No Panel InformationOrdered By: Christiano Gonzales on 11-29-2022 Pharmacy Creatinine Clearance (Chem 31.71 [facility] Urea nitrogen [Mass/volume] in Serum or PlasmaOrdered By: Christiano Gonzales on 11-29-2022 Urea nitrogen [Mass/Vol] 35 mg/dL 7-25 [facility] Surgical Pathologyon 023 Surgical Pathology (NOTE) [...] SURGICAL PATHOLOGY CONSULTATION Patient Name: HARMAN MCLEOD [facility] Rec: [id number] Path Number: [id number] [facility] ANATOMIC PATHOLOGY [address] [place] [id number] [facility] Comment on above: Performed By: #### P PPVS #### [facility] [address] [place], [place] [id number] International Account Executive: Fidel Hylton MD Ambulatory Visit Summaryon 0 [...] and diastolic (congestive) heart failure Atherosclerosis of capitan grande artery of extremity BMI 36.0-36.9,adult Brain stem [...] bleeding Stage 2 chronic kidney disease Normal [facility] General Surgery Office/Clini c Noteon 11-22-2022 [...] CHELSI CARDONA, DANIEL Jose [place] [address]- Additional Instructions: Problem List/Past Medical History Ongoing 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 Normal [facility] Comment on above: Result Comment: Elec tronically Signed By: CHELSI CARDONA, Iliana Alvarez\Date and Time Signed: 11/22/22 15:17 EDT [facility]on SARS-CoV-2 (COVID-19) RNA MARII+probe Ql (Unsp spec) Not detected Normal NOT DETECTED [facility] Comment on above: Result Comment: When diagnostic [...] for this test is supported by the [place] of Health and Human Service's declaration that [...] used). Performed By: #### H GB #### [facility] [address] [place], [place] [address] Dr. Omid Bowden INFLUENZA A AND B AGon 11-16 INFLUANEGH SEE BELOW Normal [facility] Comment on above: Result Comment: Nega tive for Flu A protein angiten. Infection due to Flu A cannot be ruled out. Flu A angiten in the sample may be below the detection limit of the test. Performed By: #### I NFLUAB ####[facility] [address] [place], [place] [address]ViDr. Omid Bowden INFLUBNEGH SEE BELOW Normal [facility] Comment on above: Result Comment: Nega tive for Flu B protein antigen. Infection due to Flu B cannot be ruled out. Flu B antigen in the sample may be below the detection limit of the test. Performed By: #### I NFLUAB ####[facility] [address] [place], [place] [address]Ov. Omid Bowden INFLUENZA A AG Negative Normal NEGATIVE SEE COMMENT [facility] Comment on above: Performed By: #### I NFLUAB ####[facility] [address] [place], [place] [address]Lo. Omid Bowden INFLUENZA B AG Negative Normal NEGATIVE SEE COMMENT [facility] Comment on above: Performed By: #### I NFLUAB ####[facility] [address] [place], [place] [address]Zu. Omid Bowden CNOVSPon 11-09-2022 CNOVSP Visit (SP) Office ([facility]) HARMAN MCLEOD ([id number]) 1940 F Date Time Provider Department 11/09/22 2:00 PM WALLACE STONE During your visit today, we recorded the following information about you: Temperature Pulse Respiration Blood pressure 97.1 degrees 66/minute 18/minute 142/72 Weight Height 84.7 kg 1.549 m Wallace Stone MD 11/09/2022 2:24 PM Signed PATIENT NAME: Harman Mcleod CLINIC NO.: [id number] ATTENDING PHYSICIAN: Wallace Stone MD DATE OF SERVICE: November 09, [address] Banks referring provider defined for this encounter. here is an update on a follow up visit on female Harman Mcleod at the clinic 11/09/2022 Diagnosis: T1b, N0, M0- R breast, Tumor 9 mm, Grade 2, Margins negative, Negative LVI, 2 SNL negative, ER and DE >95% positive, Her2 IHC 1+ Treatment History: [...] LABS: Gluc (more content not included)... Normal [facility] [place] 11-09-2022 JENNY Telephone ([facility]) HARSHAHARMAN Berna ([id number]) 1940 F Date Time Provider Department 11/09/22 WALLACE STONE During your visit today, we recorded the following information about you: Carlos Brooks 11/09/2022 2:45 PM Signed Vascular Consult [facility] Previous patient of Dr. Mendez 3 years or more. Janeth/Dudley: Can you please refer patient and follow up? Thanks! Carlos Brooks Adriana Pereira Pss 11/10/2022 8:46 AM Signed Janeth: Information ready for you. Adriana Pereira Pss Kira Berna Ko [facility] 11/10/2022 9:38 AM Signed Records faxed. Adriana [...] Fully Assessed Reason for Visit: Referral Information [2081] Cmt: Vascular Consult Prescriptions as of 11/16/2022 [...] daily at bedtime. Cut in half - Pnmvv-8-MRT-EPA-Fish Oil 1,000 mg (120 mg-180 mg) cap Take 2 g by mouth twice daily. - isosorbide mononitrate ER (IMDUR) 60 mg 24 hr tablet Take 60 mg by mouth twice daily. 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 Normal [facility] Comment on above: Result Comment: Elec tronically Signed By: CHELSI CARDONA, Iliana Alvarez\Date and Time Signed: 11/08/22 14:22 EST Ambulatory [...] GAGNON MD Where: General Surgery Chelsi/Angelita Victor [facility] General Surgery Office/Clini c Noteon 11-04-2022 General [...] and diastolic (congestive) heart failure Atherosclerosis of capitan grande artery of extremity BMI 36.0-36.9,adult Brain stem [...] Family Histor (more content not included)... Normal [facility] Comment on [...] MIGUELITO TELLEZ Date: 2022-11-02 17:17 Normal [facility] Pathology Noteon 10-26-2022 Pathology Note [id number]#[id number] 0CD:127 Normal [facility] Ambulatory Visit Summaryon 0 10-25-2022 [...] GAGNON MD Where: General Surgery Chelsi/Angelita Victor [facility] General Surgery Office/Clini c Noteon [...] and diastolic (congestive) heart failure Atherosclerosis of capitan grande artery of extremity BMI 36.0-36.9,adult Brain stem [...] disease: Mo (more content not included)... Normal [facility] Comment on above: Result Comment: Elec tronically Signed By: CHELSI CARDONA, Iliana Alvarez\Date and Time Signed: 10/25/22 16:13 EST Operative Reporton Operative Report [id number] 0CD:127 Normal [facility] RAD - Ultrasound Reporton RAD - Ultrasound Report [id number] 0CD:127 Normal [facility] NM SENTNL NODEon 10-19-2022 NM [...] by: KRISTIN JAQUEZ Date: 2022-10-19 10:41 Normal [facility] POINT OF CARE GLUCOSEon Glucose [Mass/Vol] 153 mg/dL Critically high 74-106 [facility] Comment on above: Performed By: #### P OCGLUC #### [facility] [address] [address] [address] Omid Bowden RAD - MISCon 10-19-2022 RAD - MISC [id number] 0CD:127 Normal [facility] RAD - MISC [id number] 0CD:127 Normal [facility] RAD - Ultrasound Reporton RAD - Ultrasound Report [id number] 0CD:127 Normal [facility] RAD - Ultrasound Report [id number] 0CD:127 Normal [facility] US BREAST SPECIMENon 023 US BREAST SPECIMEN Patient: HARMAN MCLEOD Exam Date: 10/19/2022 : 1940 Gender:F Ordering : DR ILIANA GAGNON . Admission #: [id number] Family : Order #: [id number] CLICK HERE TO VIEW EXAM RADIOLOGY REPORT PROCEDURE: US BREAST SPECIMEN COMPARISON: None. INDICATIONS: Specimen from breast FINDINGS: Breast specimen demonstrates inclusion of the targeted mass as well as the micro clip marker CONCLUSION: Targeted mass and micro clip marker included within the specimen Dictated by: Judson Bauman MD on 10/19/2022 at 11:46 Approved by: Judson Bauman MD on 10/19/2022 at 11:47 [facility] [place] [facility] US GUIDE LOCAL BREAST RTon 0 10-19-2022 US GUIDE LOCAL BREAST RT Patient: HARMAN MCLEOD Exam Date: 10/19/2022 : 1940 Gender:F Ordering : DR ILIANA GAGNON . Admission #: [id number] Family : Order #: [id number] CLICK HERE TO VIEW EXAM RADIOLOGY REPORT [...] clip marker LOCATION: Right breast 9 NEEDLE: [employer] spring hook; 20 g by 5 cm needle and wire. MEDICATION: 6 cubic cm Superficial and deep buffered 1% lidocaine. COMPLICATIONS: None. CONCLUSION: Technically successful hookwire localization. Dictated by: Judson Bauman MD on 10/19/2022 at 09:04 Approved by: Judson Bauman MD on 10/19/2022 at 09:05 [facility] [place] [facility] US SENTINEL NODEon 3 US SENTINEL NODE [...] by: JUDSON BAUMAN Date: 2022-10-19 08:59 Normal [facility] RAD - MISCon 10-17-2022 RAD - MISC [id number] 0CD:127 Normal [facility] CBC AUTO DIFFon 10-11-2022 BASO # 0.0 103/ul Normal 0.0-0.1 [facility] Comment on above: Performed By: #### H GB #### [facility] [address] [address] [address] Omid Bowden Basophils/100 WBC (Bld) 0.2 % Normal 0.2-2.0 [facility] Comment on above: Performed By: #### H GB #### [facility] [address] [address] [address] Omid Bowden EO # 0.0 103/ul Normal 0.0-0.7 [facility] Comment on above: Performed By: #### H GB #### [facility] [address] [address] [address] Omid Bowden Eosinophils/100 WBC (Bld) 0.3 % Critically low 0.9-7.0 [facility] Comment on above: Performed By: #### H GB #### [facility] [address] [address] [address] Omid Bowden Erythrocyte distribution width (RBC) [Ratio] 13.7 % Normal 11.0-15.0 [facility] Comment on above: Performed By: #### H GB #### [facility] [address] [address] [address] Omid Bowden Hematocrit (Bld) [Volume fraction] 39.6 % Normal 36.0-48.0 [facility] Comment on above: Performed By: #### H GB #### [facility] [address] [address] [address] Omid Bowden Hemoglobin (Bld) [Mass/Vol] 12.3 g/dL Normal 12.0-16.0 [facility] Comment on above: Performed By: #### H GB #### [facility] [address] [address] [address] Omid Bowden IG # 0.06 10e3/ul Critically high 0.00-0.03 [facility] Comment on above: Performed By: #### H GB #### [facility] [address] [address] [address] Omid Bowden IG % 0.5 % Normal 0.0-0.5 [facility] Comment on above: Performed By: #### H GB #### [facility] [address] [place] [address] Dr. Omid Bowden LYMPH # 2.9 103/ul Normal 1.2-3.8 [facility] Comment on above: Performed By: #### H GB #### [facility] [address] [place] [address] Dr. Omid Bowden Lymphocytes/100 WBC (Bld) 26.2 % Normal 20.5-60.0 [facility] Comment on above: Performed By: #### H GB #### [facility] [address] [place] [address] Dr. Omid Bowden MANUAL DIFF REQ NO Normal [facility] Comment on above: Performed By: #### H GB #### [facility] [address] [address] [address] Omid Bowden MCH (RBC) [Entitic mass] 28.3 pg Normal 26.7-34.0 [facility] Comment on above: Performed By: #### H GB #### [facility] [address] [place] [address] Dr. Omid Bowden MCHC (RBC) [Mass/Vol] 31.1 g/dL Normal 29.9-35.2 [facility] Comment on above: Performed By: #### H GB #### [facility] [address] [place] [address] Dr. Omid Bowden MCV (RBC) [Entitic vol] 91.2 fL Normal 81.0-99.0 [facility] Comment on above: Performed By: #### H GB #### [facility] [address] [place] [address] Dr. Omid Bowden MONO # 0.9 103/ul Critically high 0.3-0.8 [facility] Comment on above: Performed By: #### H GB #### [facility] [address] [place] [address] Dr. Omid Bowden Monocytes/100 WBC (Bld) 8.3 % Normal 1.7-12.0 [facility] Comment on above: Performed By: #### H GB #### [facility] [address] [place] [address] Dr. Omid Bowden NEUT # 7.0 103/ul Critically high 1.4-6.5 [facility] Comment on above: Performed By: #### H GB #### [facility] [address] [place] [address] Dr. Omid Bowden Neutrophils/100 WBC (Bld) 64.5 % Normal 43.0-75.0 [facility] Comment on above: Performed By: #### H GB #### [facility] [address] [place] [address] Dr. Omid Bowden Platelet mean volume (Bld) [Entitic vol] 9.2 fL Critically low 9.5-13.5 [facility] Comment on above: Performed By: #### H GB #### [facility] [address] [place] [address] Dr. Omid Bowden PLT 346 103/ul Normal 150-450 [facility] Comment on above: Performed By: #### H GB #### [facility] [address] [place] [address] Dr. Omid Bowden RBC 4.34 106/ul Normal 4.20-5.40 [facility] Comment on above: Performed By: #### H GB #### [facility] [address] [place] [address] Dr. Omid Bowden WBC 10.9 103/ul Normal 4.0-11.0 [facility] Comment on above: Performed By: #### H GB #### [facility] [address] [place] [address] Dr. Omid Bowden PROF CHEM 8 (BAS METB)on Anion gap [Moles/Vol] 11.0 mmol/L Normal [facility] Comment on above: Performed By: #### L IPID, BMP #### [facility] [address] [place] [address] Dr. Omid Bowden Calcium [Mass/Vol] 9.6 mg/dL Normal 8.5-10.1 [facility] Comment on above: Performed By: #### L IPID, BMP #### [facility] [address] [place] [address] Dr. Omid Bowden Chloride [Moles/Vol] 99 mmol/L Normal 98-107 [facility] Comment on above: Performed By: #### L IPID, BMP #### [facility] [address] [place] [address] Dr. Omid Bowden CO2 [Moles/Vol] 32.0 mmol/L Normal 21.0-32.0 [facility] Comment on above: Performed By: #### L IPID, BMP #### [facility] [address] [place] [address] Dr. Omid Bowden Creatinine [Mass/Vol] 1.03 mg/dL Critically high 0.55-1.02 [facility] Comment on above: Performed By: #### L IPID, BMP #### [facility] [address] [place] [address] Dr. Omid Bowden EGFR-AF VINCENTIAN >60 Normal >=[address] [facility] Comment on above: Performed By: #### L IPID, BMP #### [facility] [address] [place] [address] Dr. Omid Bowden EGFR-NON AF VINCENTIAN 52 mL/min/1.73m2 Critically low >=60 [facility] Comment on above: Performed By: #### L IPID, BMP #### [facility] [address] [address] [address] Omid Bowden Glucose [Mass/Vol] 94 mg/dL Normal 74-106 [facility] Comment on above: Performed By: #### L IPID, BMP #### [facility] [address] [place] [address] Dr. Omid Bowden Potassium [Moles/Vol] 4.0 mmol/L Normal 3.5-5.1 [facility] Comment on above: Performed By: #### L IPID, BMP #### [facility] [address] [place] [address] Dr. Omid Bowden Sodium [Moles/Vol] 138 mmol/L Normal 136-145 [facility] Comment on above: Performed By: #### L IPID, BMP #### [facility] [address] [place] [address] Dr. Omid Bowden Urea nitrogen [Mass/Vol] 28.0 mg/dL Critically high 7.0-18.0 [facility] Comment on above: Performed By: #### L IPID, BMP #### [facility] [address] [place] [address] Dr. Omid Bowden Urea nitrogen/Creatinine [Mass ratio] 27.2 mg/mg Normal [facility] Comment on above: Performed By: #### L IPID, BMP #### [facility] [address] [place] [address] Dr. Omid Bowden PROTIMEon 10-11-2022 INR Coag (PPP) [Relative time] 0.99 {INR} Normal [facility] Comment on above: Performed By: #### H GB #### [facility] [address] [place] [address] Dr. Omid Bowden INR GUIDELINES SEE BELOW Normal [facility] Comment on above: Result Comment: PERLITA RED INR: 2.0 - 3.0 CONDITIONS NOT LISTED BELOW 2.5 - 3.5 FOR PROSTHETIC HEART VALVE REPLACEMENT 2.5 - 3.5 RECURRENT THROMBOSIS Performed By: #### H GB #### [facility] [address] [place] [address] Dr. Omid Bowden PT Coag (PPP) [Time] 10.5 s Normal 9.0-11.6 [facility] Comment on above: Performed By: #### H GB #### [facility] [address] [place] [address] Dr. Omid Bowden PTTon 10-11-2022 aPTT Coag (Bld) [Time] 28.6 s Normal 22.3-36.2 [facility] Comment on above: Performed By: #### H GB #### [facility] [address] [place] [address] Dr. Omid Bowden Consultation Noteon 10-06-19 Consultation Note [id number] 0CD:127 Normal [facility] INSULINon 10-01-2022 Insulin 22.8 uIU/mL Normal 2.6-24.9 [facility] Comment on above: Performed By: #### L IPID, BMP #### [facility] [address] [place] [address] Dr. Omid Bowden GLYCOHEMOGLOBIN A1Con 2022 ADA RECOMMENDATION SEE BELOW Normal [facility] Comment on above: Result Comment: ADA RECOMMENDED LIMIT 4.0 - 6.0 ADA THERAPEUTIC TARGET < 7.0 ACTION SUGGESTED > 7.0 Performed By: #### H GB #### [facility] [address] [place] [address] Dr. Omid Bowden Glucose [Mass/Vol] 177 mg/dL Normal [facility] Comment on above: Performed By: #### H GB #### [facility] [address] [place] [address] Dr. Omid Bowden HbA1c (Bld) [Mass fraction] 7.8 % Critically high 4.5-6.2 [facility] Comment on above: Performed By: #### H GB #### [facility] [address] [place] [address] Dr. Omid Bowden PROF 14(COMP METB)on 023 Albumin [Mass/Vol] 3.0 g/dL Critically low 3.4-5.0 [facility] Comment on above: Performed By: #### C MP ####[facility] [address] [place] [address]Dr. Omid Kal Albumin/Globulin [Mass ratio] 0.7 {ratio} Normal [facility] Comment on above: Performed By: #### C MP ####[facility] [address] [place] [address]Dr. Omid Bowden ALP [Catalytic activity/Vol] 73 U/L Normal 46-116 [facility] Comment on above: Performed By: #### C MP ####[facility] [address] [place] [address]Dr. Aixamegan Bowden ALT [Catalytic activity/Vol] 16 U/L Normal 14-59 [facility] Comment on above: Performed By: #### C MP ####[facility] [address] [place], [place] [address]Dr. Omid Bowden Anion gap [Moles/Vol] 11.3 mmol/L Normal [facility] Comment on above: Performed By: #### C MP ####[facility] [address] [place], [place] [address]Dr. Omid Bowden AST [Catalytic activity/Vol] 14 U/L Critically low 15-37 [facility] Comment on above: Performed By: #### C MP ####[facility] [address] [place], [place] [address]Dr. Omid Bowden Bilirubin [Mass/Vol] 0.3 mg/dL Normal 0.2-1.0 [facility] Comment on above: Performed By: #### C MP ####[facility] [address] [place], [place] [address]Dr. Omid Bowden Calcium [Mass/Vol] 9.5 mg/dL Normal 8.5-10.1 [facility] Comment on above: Performed By: #### C MP ####[facility] [address] [place], [place] [address]Dr. Omid Bowden Chloride [Moles/Vol] 102 mmol/L Normal 98-107 [facility] Comment on above: Performed By: #### C MP ####[facility] [address] [place] [address]Dr. Omid Bowden CO2 [Moles/Vol] 31.1 mmol/L Normal 21.0-32.[address] [facility] Comment on above: Performed By: #### C MP ####[facility] [address] [place] [address]Dr. Omid Bowden Creatinine [Mass/Vol] 1.28 mg/dL Critically high 0.55-1.02 [facility] Comment on above: Performed By: #### C MP ####[facility] [address] [place] [address]Dr. Omid Bowden EGFR-AF VINCENTIAN 49 mL/min/1.73m2 Critically low >=60 [facility] Comment on above: Performed By: #### C MP ####[facility] [address] [place], [place] [address]Dr. Omid Bowden EGFR-NON AF VINCENTIAN 40 mL/min/1.73m2 Critically low >=60 [facility] Comment on above: Performed By: #### C MP ####[facility] [address] [place] [address]Dr. Omid Bowden Globulin (S) [Mass/Vol] 4.4 g/dL Normal [facility] Comment on above: Performed By: #### C MP ####[facility] [address] [place] [address]Dr. Omid Bowden Glucose [Mass/Vol] 103 mg/dL Normal 74-106 [facility] Comment on above: Performed By: #### C MP ####[facility] [address] [place] [address]Dr. Omid Bowden Potassium [Moles/Vol] 4.4 mmol/L Normal 3.5-5.1 [facility] Comment on above: Performed By: #### C MP ####[facility] [address] [place] [address]Dr. Omid Bowden Protein [Mass/Vol] 7.4 g/dL Normal 6.4-8.2 [facility] Comment on above: Performed By: #### C MP ####[facility] [address] [place], [place] [address]Sg. Omid Bowden Sodium [Moles/Vol] 140 mmol/L Normal 136-145 [facility] Comment on above: Performed By: #### C MP ####[facility] [address] [place], [place] [address]Pw. Omid Bowden Urea nitrogen [Mass/Vol] 27.0 mg/dL Critically high 7.0-18.0 [facility] Comment on above: Performed By: #### C MP ####[facility] [address] [place], [place] [address]Aw. Omid Bowden Urea nitrogen/Creatinine [Mass ratio] 21.1 mg/mg Normal [facility] Comment on above: Performed By: #### C MP ####[facility] [address] [place], [place] [address]Gk. Omid Bowden Formson 09-29-2022 Forms [id number]#1.0 0CD:127 Normal [facility] Consent for Procedure/Surger yon 09-26-2022 Consent for Procedure/Surgery [id number] 0CD:127 Normal [facility] Consultation Noteon 09-23-19 Consultation Note [id number]#1.0 0CD:127 Normal [facility] CNOVon 09-22-2022 CNOV Office Visit (RADTSA ) HARMAN MCLEOD ([id number]) 1940 F Date Time Provider Department 09/22/22 1:00 PM MARCIN SHAH During your visit today, we recorded the following information about you: Marcin Shah MD 2022 6:06 AM Addendum Radiation Oncology - New Patient/Consult Note PATIENT NAME: Harman Mcleod PATIENT REQUESTING PHYSICIAN: Dr. 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 PATIENT IDENTIFICATION: This patient was seen in the Department of Radiation Oncology at the [facility] with Marcin Shah MD. She was accompanied today by her family. Final recommendations will be communicated back to the requesting physician by way of the shared medical record, or letter to requesting physician via US mail. HISTORY OF PRESENT ILLNESS: Ms. Mcleod is an 82-year-old woman from [place], [place] who was discovered on screening mammogram from July 2022 to have an abnormality within the anterior upper outer quadrant of the right breast. This was confirmed on ultrasound and she underwent stereotactic biopsy on 08/19/2022 with pathology revealing intermediate grade IDC that was ER/DE positive HER2 negative. She has met with [...] tablet crenshaw (more content not included)... Normal [facility] CNOVSPon 09-22-2022 OVS Visit (SP) Office (INDIA) HARMAN MCLEOD ([id number]) 1940 F Date Time Provider Department 09/22/22 11:30 AM WALLACE STONE During your visit today, we recorded the following information about you: Temperature Pulse Respiration Blood pressure 97.8 degrees 70/minute 16/minute 137/64 Weight Height 84.8 kg 1.549 m Wallace Stone MD 09/22/2022 5:19 PM Signed PATIENT NAME: Harman Mcleod CLINIC NO.: [id number] ATTENDING PHYSICIAN: Wallace Stone MD DATE OF [...] provisional grade 1 through 2, ER and DE greater than 95% positive, HER2/holden negative with an IHC score of 1+ and FISH negative at [facility]. This patient was subsequently referred to Dr. Iliana Gagnon for surgical consultation. Patient denies any previous history of abnormal mammograms and or breast biopsy. She has had a recent bone density in [place] and was diagnosed with osteoporosis and started on Prolia as well. Patient has a sister who was diagnosed with breast cancer at the age of 82 and her daughter diagnosed with breast cancer at the age of 37. She quit smoking approximately 4 years ago. 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 [...] mouth daily at bedtime. Cut in half Rsflt-7-LQV-EPA-Fish Oil 1,000 mg (120 mg-180 mg) cap [...] high r (more content not included)... Normal [facility] CNPNon 09-22-2022 CNPN Telephone (HEMASA) HARMAN MCLEOD ([id number]) 1940 F Date Time Provider Department 09/22/22 [...] daily at bedtime. Cut in half - Sfptb-2-VXF-EPA-Fish Oil 1,000 mg (120 mg-180 mg) cap Take 2 g by mouth twice daily. - isosorbide mononitrate ER (IMDUR) 60 mg 24 hr tablet Take 60 mg by mouth twice daily. 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 Performed By: #### C VDTB ####[facility] [address] [place], [place] [address]Dr. megan [facility] INFLUENZA A AND B AGon 09-21 [facility] SEE BELOW Normal [facility] Comment on above: Result Comment: Nega tive for Flu A protein angiten. Infection due to Flu A cannot be ruled out. Flu A angiten in the sample may be below the detection limit of the test. Performed By: #### I NFLUAB ####[facility] [address] [place], [place] [address]Dr. [facility] INFLUBNEGH SEE BELOW Normal [facility] Comment on above: Result Comment: Nega tive for Flu B protein antigen. Infection due to Flu B cannot be ruled out. Flu B antigen in the sample may be below the detection limit of the test. Performed By: #### I NFLUAB ####[facility] [address] [place], [place] [address]Dr. [facility] INFLUENZA A AG Negative Normal NEGATIVE SEE COMMENT [facility] Comment on above: Performed By: #### I NFLUAB ####[facility] [address] [place], [place] [address]Dr. [facility] INFLUENZA B AG Negative Normal NEGATIVE SEE COMMENT [facility] Comment on above: Performed By: #### I NFLUAB ####[facility] [address] [place], [place] [address]Dr. Omid Bowden LIPID PROFILEon 09-16-2022 CHOL-HDL RATIO NORM SEE BELOW Normal [facility] Comment on above: Result Comment: 3.3 - 4.4 LOW RISK 4.4 - 7.1 AVERAGE RISK 7.1 - 11.0 MODERATE RISK >11.0 HIGH RISK Performed By: #### L IPID, BMP #### [facility] [address] [place] [id number] Omid Bowden Cholesterol [Mass/Vol] 210 mg/dL Critically high <=200 [facility] Comment on above: Performed By: #### L IPID, BMP #### [facility] [address] [id number] [address] Omid Bowden Cholesterol in HDL [Mass/Vol] 49 mg/dL Normal 40-60 [facility] Comment on above: Performed By: #### L IPID, BMP #### [facility] [address] [place] [address] [address] Omid Bowden Cholesterol in LDL [Mass/Vol] 84.2 mg/dL Normal [facility] Comment on above: Performed By: #### L IPID, BMP #### [facility] [id number] Omid Bowden Cholesterol.total/Chol esterol in HDL [Mass ratio] 4.3 {ratio} Normal [facility] Comment on above: Performed By: #### L IPID, BMP #### [facility] [address] [place] [address] Omid Bowden HDL NORMAL > or = 60 mg/dl - LO W CARDIOVASCULAR RISK <40 mg/dl - HIGH CARDIOVASCULAR RISK Normal [facility] Comment on above: Performed By: #### L IPID, BMP #### [facility] [address] [id number] Omid Bowden LDL CALC NORMAL SEE BELOW Normal [facility] Comment on above: Result Comment: <100 mg/dl OPTIMAL 100 - 129 mg/dl NEAR OR ABOVE OPTIMAL 130 - 159 mg/dl BORDERLINE HIGH 160 - 189 mg/dl HIGH >190 mg/dl VERY HIGH Performed By: #### L IPID, BMP #### [facility] [address] [place] [address] Dr. Omid Bowden Triglyceride [Mass/Vol] 384 mg/dL Critically high <=150 [facility] Comment on above: Performed By: #### L IPID, BMP #### [facility] [address] [place] [address] Dr. Omid Bowden VLDL CALC 76.8 mg/dL Normal [facility] Comment on above: Performed By: #### L IPID, BMP #### [facility] [address] [place] [address] [address] Omid Bowden PROF CHEM 8 (BAS METB)on Anion gap [Moles/Vol] 10.8 mmol/L Normal [facility] Comment on above: Performed By: #### L IPID, BMP #### [facility] [address] [place] [address] Dr. Omid Bowden Calcium [Mass/Vol] 8.8 mg/dL Normal 8.5-10.1 [facility] Comment on above: Performed By: #### L IPID, BMP #### [facility] [address] [place] [address] Dr. Omid Bowden Chloride [Moles/Vol] 98 mmol/L Normal 98-107 [facility] Comment on above: Performed By: #### L IPID, BMP #### [facility] [address] [place] [address] Dr. Omid Bowden CO2 [Moles/Vol] 34.5 mmol/L Critically high 21.0-32.0 [facility] Comment on above: Performed By: #### L IPID, BMP #### [facility] [address] [place] [address] Dr. Omid Bowden Creatinine [Mass/Vol] 1.17 mg/dL Critically high 0.55-1.02 [facility] Comment on above: Performed By: #### L IPID, BMP #### [facility] [address] [place] [address] Dr. Omid Bowden EGFR-AF VINCENTIAN 54 mL/min/1.73m2 Critically low >=60 [facility] Comment on above: Performed By: #### L IPID, BMP #### [facility] [address] [place] [address] Dr. Omid Bowden EGFR-NON AF VINCENTIAN 45 mL/min/1.73m2 Critically low >=60 [facility] Comment on above: Performed By: #### L IPID, BMP #### [facility] [address] [place] [address] Dr. Omid Bowden Glucose [Mass/Vol] 193 mg/dL Critically high 74-106 [facility] Comment on above: Performed By: #### L IPID, BMP #### [facility] [address] [place] [address] Dr. Omid Bowden Potassium [Moles/Vol] 3.3 mmol/L Critically low 3.5-5.1 [facility] Comment on above: Performed By: #### L IPID, BMP #### [facility] [address] [place] [address] Dr. Omid Bowden Sodium [Moles/Vol] 140 mmol/L Normal 136-145 [facility] Comment on above: Performed By: #### L IPID, BMP #### [facility] [address] [place] [address] Dr. Omid Bowden Urea nitrogen [Mass/Vol] 31.0 mg/dL Critically high 7.0-18.0 [facility] Comment on above: Performed By: #### L IPID, BMP #### [facility] [address] [place] [address] Dr. Omid Bowden Urea nitrogen/Creatinine [Mass ratio] 26.5 mg/mg Normal [facility] Comment on above: Performed By: #### L IPID, BMP #### [facility] [address] [place] [address] Dr. Omid Bowden Facesheeton 09-13-2022 Facesheet [id number]#1.0 0CD:127 Normal [facility] Consultation Noteon 09-01-20 Consultation Note [id number] 0CD:127 Normal [facility] ED Note-Physicianon 09-01-20 ED Note-Physician [id number]#1.0 0CD:127 Normal [facility] Lab Reportson 09-01-2022 Lab Reports [id number]#1.0 0CD:127 Normal [facility] Lab Reports [id number] 0CD:127 Normal [facility] Physician Referralon 022 Physician Referral [id number]#1.0 0CD:127 Normal [facility] C. DIFF PCRon 08-23-2022 C. DIFFICILE PCR Negative Normal NEGATIVE [facility] Comment on above: Performed By: #### C DIFPOC ####[facility] [address] [place] [address]Dr. Aixamegan Bowden CBC AUTO DIFFon 08-19-2022 BASO # 0.0 103/ul Normal 0.0-0.1 [facility] Comment on above: Performed By: #### C BC ####[facility] [address] [place] [address]Dr. Omid Bowden Basophils/100 WBC (Bld) 0.3 % Normal 0.2-2.0 [facility] Comment on above: Performed By: #### C BC ####[facility] [address] [place] [address]Dr. Omid Bowden EO # 0.5 103/ul Normal 0.0-0.7 [facility] Comment on above: Performed By: #### C BC ####[facility] [address] [place], [place] [address]Dr. Aixamegan Bowden Eosinophils/100 WBC (Bld) 3.2 % Normal 0.9-7.0 [facility] Comment on above: Performed By: #### C BC ####[facility] [address] [place] [address]Dr. Omid Bowden Erythrocyte distribution width (RBC) [Ratio] 14.1 % Normal 11.0-15.0 [facility] Comment on above: Performed By: #### C BC ####[facility] [address] [place] [address]Dr. Omid Bowden Hematocrit (Bld) [Volume fraction] 36.1 % Normal 36.0-48.0 [facility] Comment on above: Performed By: #### C BC ####[facility] [address] [place], [place] [address]Dr. Omid Bowden Hemoglobin (Bld) [Mass/Vol] 11.7 g/dL Critically low 12.0-16.0 [facility] Comment on above: Performed By: #### C BC ####[facility] [address] [place], [place] [address]Dr. Omid Bowden IG # 0.08 10e3/ul Critically high 0.00-0.03 [facility] Comment on above: Performed By: #### C BC ####[facility] [address] [place], [place] [address]Dr. Omid Bowden IG % 0.5 % Normal 0.0-0.5 [facility] Comment on above: Performed By: #### C BC ####[facility] [address] [place], [place] [address]Dr. Omid Bowden LYMPH # 1.2 103/ul Normal 1.2-3.8 [facility] Comment on above: Performed By: #### C BC ####[facility] [address] [place], [place] [address]Dr. Omid Bowden Lymphocytes/100 WBC (Bld) 7.5 % Critically low 20.5-60.0 [facility] Comment on above: Performed By: #### C BC ####[facility] [address] [place], [place] [address]Dr. Omid Bowden MANUAL DIFF REQ NO Normal [facility] Comment on above: Performed By: #### C BC ####[facility] [address] [place] [address]Dr. Omid Kal MCH (RBC) [Entitic mass] 29.2 pg Normal 26.7-34.0 [facility] Comment on above: Performed By: #### C BC ####[facility] [address] [place] [address]Dr. Omid Kal MCHC (RBC) [Mass/Vol] 32.4 g/dL Normal 29.9-35.2 [facility] Comment on above: Performed By: #### C BC ####[facility] [address] [place] [address]Dr. Omid Bowden MCV (RBC) [Entitic vol] 90.0 fL Normal 81.0-99.0 [facility] Comment on above: Performed By: #### C BC ####[facility] [address] [place], [place] [address]Dr. Omid Bowden MONO # 1.0 103/ul Critically high 0.3-0.8 [facility] Comment on above: Performed By: #### C BC ####[facility] [address] [place], [place] [address]Dr. Omid Bowden Monocytes/100 WBC (Bld) 6.8 % Normal 1.7-12.0 [facility] Comment on above: Performed By: #### C BC ####[facility] [address] [place], [place] [address]Dr. Omid Bowden NEUT # 12.5 103/ul Critically high 1.4-6.[address] [facility] Comment on above: Performed By: #### C BC ####[facility] [address] [place], [place] [address]Dr. Omid Bowden Neutrophils/100 WBC (Bld) 81.7 % Critically high 43.0-75.0 [facility] Comment on above: Performed By: #### C BC ####[facility] [address] [place], [place] [address]Dr. Omid Bowden Platelet mean volume (Bld) [Entitic vol] 8.9 fL Critically low 9.5-13.5 [facility] Comment on above: Performed By: #### C BC ####[facility] [address] [place], [place] [address]He. Omid Bowden PLT 252 103/ul Normal 150-450 [facility] Comment on above: Performed By: #### C BC ####[facility] [address] [place], [place] [address]Th. Omid Bowden RBC 4.01 106/ul Critically low 4.20-5.40 [facility] Comment on above: Performed By: #### C BC ####[facility] [address] [place], [place] [address]Eh. Omid Bowden WBC 15.3 103/ul Critically high 4.0-11.[address] [facility] Comment on above: Performed By: #### C BC ####[facility] [address] [place], [place] [address]Pr. Omid Bowden IRONon 08-19-2022 Iron [Mass/Vol] 59.0 ug/dL Normal 50.0-170.0 [facility] Comment on above: Performed By: #### H GB #### [facility] [address] [place], [place] [address] Dr. Omid Bowden MAMMO POST BIOPSY RIGHTon MAMMO POST BIOPSY RIGHT Patient: HARMAN MCLEOD Exam Date: 08/19/2022 : 1940 Gender:F Ordering : DR MATEUS PERRY . Admission #: [id number] Family : Order #: [id number] CLICK HERE TO VIEW EXAM This report [...] Bauman MD on 09/06/2022 at 09:57 Normal [facility] PROTIMEon 08-19-2022 INR Coag (PPP) [Relative time] 0.99 {INR} Normal [facility] Comment on above: Performed By: #### P T, PTT ####[facility] [address] [place], [place] [address]DrMedardo Bowden INR GUIDELINES SEE BELOW Normal [facility] Comment on above: Result Comment: PERLITA RED INR: 2.0 - 3.0 CONDITIONS NOT LISTED BELOW 2.5 - 3.5 FOR PROSTHETIC HEART VALVE REPLACEMENT 2.5 - 3.5 RECURRENT THROMBOSIS Performed By: #### P T, PTT ####[facility] [address] [place], [place] [address]DrMedardo Bowden PT Coag (PPP) [Time] 10.7 s Normal 9.0-11.6 [facility] Comment on above: Performed By: #### P T, PTT ####[facility] [address] [place] [address]Dr. Omid Bowden PTTon 08-19-2022 aPTT Coag (Bld) [Time] 26.0 s Normal 22.3-36.2 [facility] Comment on above: Performed By: #### P T, PTT ####[facility] [address] [place], [place] [address]Dr. Omid Bowden US VAC ASST BX BRST RT W CLI Jose Maria 08-19-2022 US VAC ASST BX BRST RT W CLIP Patient: HARMAN MCLEOD Exam Date: 08/19/2022 : 1940 Gender:F Ordering : DR MATEUS PERRY . Admission #: [id number] Family : Order #: [id number] CLICK HERE TO VIEW EXAM This report [...] MD on 09/06/2022 at 09:55 Normal [facility] CULTURE URINEon 08-16-2022 CULTURE URINE Isolate 1 [...] R F Nitrofurantoin <=16 S F Normal [facility] [place] Comment on above: Performed By: #### U RCX ####[facility] [address] [place], [place] [address]LpMedardo Bowden CARDIAC ADILIA ADMITon 022 CK [Catalytic activity/Vol] 128 U/L Normal 26-192 [facility] Comment on above: Performed By: #### L IPID, BMP #### [facility] [address] [place] [address] Dr. Omid Bowden CK.MB [Mass/Vol] 2.88 ng/mL Normal <=3.[address] [facility] Comment on above: Performed By: #### L IPID, BMP #### [facility] [address] [place] [address] Dr. Omid Bowden HSTROP 24.1 pg/mL Normal 4.0-51.3 [facility] Comment on above: Result Comment: CUT- OFF POINTS HAVE BEEN ESTABLISHED BASED ON THE FOURTH UNIVERSAL DEFINITIONS OF MYOCARDIAL INFARCTION. THE UPPER REFERENCE LIMIT (URL) OF TROPONIN, DEFINED THE 99TH PERCENTILE OF cTnI DISTRIBUTION IN A REFERENCE POPULATION, HAS BEEN CONFIRMED THE DECISION THRESHOLD FOR [place] DIAGNOSIS. Performed By: #### L IPID, BMP #### [facility] [address] [place] [address] Dr. Omid Bowden JACINTA 61 ng/mL Normal 9-82 [facility] Comment on above: Performed By: #### L IPID, BMP #### [facility] [address] [place] [address] Dr. Omid Bowden CBC AUTO DIFFon 08-14-2022 BASO # 0.0 103/ul Normal 0.0-0.1 [facility] Comment on above: Performed By: #### H GB #### [facility] [address] [place] [address] Dr. Omid Bowden Basophils/100 WBC (Bld) 0.4 % Normal 0.2-2.0 [facility] Comment on above: Performed By: #### H GB #### [facility] [address] [place] [address] Dr. Omid Bowden EO # 0.3 103/ul Normal 0.0-0.7 [facility] Comment on above: Performed By: #### H GB #### [facility] [address] [place] [address] Dr. Omid Bowden Eosinophils/100 WBC (Bld) 2.6 % Normal 0.9-7.0 [facility] Comment on above: Performed By: #### H GB #### [facility] [address] [place] [address] Dr. Omid Bowden Erythrocyte distribution width (RBC) [Ratio] 14.1 % Normal 11.0-15.0 [facility] Comment on above: Performed By: #### H GB #### [facility] [address] [place] [address] Dr. Omid Bowden Hematocrit (Bld) [Volume fraction] 35.5 % Critically low 36.0-48.0 [facility] Comment on above: Performed By: #### H GB #### [facility] [address] [place] [address] Dr. Omid Bowden Hemoglobin (Bld) [Mass/Vol] 11.6 g/dL Critically low 12.0-16.0 [facility] Comment on above: Performed By: #### H GB #### [facility] [address] [place] [address] Dr. Omid Bowden IG # 0.06 10e3/ul Critically high 0.00-0.03 [facility] Comment on above: Performed By: #### H GB #### [facility] [address] [place] [address] Dr. Omid Bowden IG % 0.6 % Critically high 0.0-0.5 [facility] Comment on above: Performed By: #### H GB #### [facility] [address] [place] [address] Dr. Omid Bowden LYMPH # 3.4 103/ul Normal 1.2-3.8 [facility] Comment on above: Performed By: #### H GB #### [facility] [address] [place] [address] Dr. Omid Bowden Lymphocytes/100 WBC (Bld) 35.5 % Normal 20.5-60.0 [facility] Comment on above: Performed By: #### H GB #### [facility] [address] [place] [address] Dr. Omid Bowden MANUAL DIFF REQ NO Normal [facility] Comment on above: Performed By: #### H GB #### [facility] [address] [place] [address] [address] Omid Bowden MCH (RBC) [Entitic mass] 29.5 pg Normal 26.7-34.0 [facility] Comment on above: Performed By: #### H GB #### [facility] [address] [place] [address] Dr. Omid Bowden MCHC (RBC) [Mass/Vol] 32.7 g/dL Normal 29.9-35.2 [facility] Comment on above: Performed By: #### H GB #### [facility] [address] [place] [address] Dr. Omid Bowden MCV (RBC) [Entitic vol] 90.3 fL Normal 81.0-99.0 [facility] Comment on above: Performed By: #### H GB #### [facility] [address] [place] [address] Dr. Omid Bowden MONO # 1.0 103/ul Critically high 0.3-0.8 [facility] Comment on above: Performed By: #### H GB #### [facility] [address] [place] [address] Dr. Omid Bowden Monocytes/100 WBC (Bld) 10.5 % Normal 1.7-12.0 [facility] Comment on above: Performed By: #### H GB #### [facility] [address] [place] [address] Dr. Omid Bowden NEUT # 4.8 103/ul Normal 1.4-6.5 [facility] Comment on above: Performed By: #### H GB #### [facility] [address] [place] [address] Dr. Omid Bowden Neutrophils/100 WBC (Bld) 50.4 % Normal 43.0-75.0 [facility] Comment on above: Performed By: #### H GB #### [facility] [address] [place] [address] Dr. Omid Bowden Platelet mean volume (Bld) [Entitic vol] 9.1 fL Critically low 9.5-13.5 [facility] Comment on above: Performed By: #### H GB #### [facility] [address] [place] [address] [address] Omid Bowden PLT 276 103/ul Normal 150-450 [facility] Comment on above: Performed By: #### H GB #### [facility] [address] [place] [address] [address] Omid Bowden RBC 3.93 106/ul Critically low 4.20-5.40 [facility] Comment on above: Performed By: #### H GB #### [facility] [address] [place] [address] [address] Omid Bowden WBC 9.5 103/ul Normal 4.0-11.0 [facility] Comment on above: Performed By: #### H GB #### [facility] [address] [place] [address] [address] Omid Bowden ER URINE PROFILEon 2 Bilirubin Ql (U) Negative Normal NEGATIVE [facility] Comment on above: Performed By: #### U MICRO, ERUR ####[facility] [address] [place] [address]Dr. Omid Bowden Clarity (U) CLEAR Normal CLEAR [facility] Comment on above: Performed By: #### U MICRO, ERUR ####[facility] [address] [place] [address]Dr. Omid Bowden Color (U) LT. YELLOW Normal YELLOW [facility] Comment on above: Performed By: #### U MICRO, ERUR ####[facility] [address] [place] [address]Dr. Omid SIMOND A micrscopic examination will be performed if indicated. Normal [facility] Comment on above: Performed By: #### U MICRO, ERUR ####[facility] [address] [place] [address]Dr. Omid Bowden Glucose Ql (U) Negative Normal NEGATIVE [facility] Comment on above: Performed By: #### U MICRO, ERUR ####[facility] [address] [place] [address]Dr. Omid Bowden Hemoglobin Ql (U) Negative Normal NEGATIVE The [facility] Comment on above: Performed By: #### U MICRO, ERUR ####[facility] [address] [place] [address]Dr. Omid Bowden Ketones Ql (U) Negative Normal NEGATIVE [facility] Comment on above: Performed By: #### U MICRO, ERUR ####[facility] [address] [place] [address]Dr. Omid Bowden LEUKOCYTES TRACE Abnormal NEGATIVE [facility] Comment on above: Performed By: #### U MICRO, ERUR ####[facility] [address] [place] [address]Dr. Omid Bowden Nitrite Ql (U) Negative Normal NEGATIVE [facility] Comment on above: Performed By: #### U MICRO, ERUR ####[facility] [address] [place], [place] [address]Dr. Omid Bowden pH (U) 6.0 [pH] Normal 5-9 [facility] Comment on above: Performed By: #### U MICRO, ERUR ####[facility] [address] [place], [place] [address]Dr. Omid Bowden SPEC GRAVITY 1.020 Normal 1.005-<=1.0 25 [facility] Comment on above: Performed By: #### U MICRO, ERUR ####[facility] [address] [place], [place] [address]Dr. Omid Bowden UA PROTEIN Negative Normal NEGATIVE/ TRACE [facility] Comment on above: Performed By: #### U MICRO, ERUR ####[facility] [address] [place] [address]Dr. Omid Bowden UR MICRO IND INDICATED Normal [facility] Comment on above: Performed By: #### U MICRO, ERUR ####[facility] [address] [place], [place] [address]Dr. Omid Bowden Urobilinogen Qn (U) 0.2 {Jose'U}/dL Normal 0.2 - 1. 0 [facility] Comment on above: Performed By: #### U MICRO, ERUR ####[facility] [address] [place], [place] [address]Dr. Omid Bowden OCC BLD IMMUNO SCREENon 12-0 OCCULT BLOOD Negative Normal NEGATIVE [facility] Comment on above: Performed By: #### O BSCRN #### [facility] [address] [place] [address] Dr. Omid Bowden PROF CHEM 8 (BAS METB)on Anion gap [Moles/Vol] 5.5 mmol/L Normal [facility] Comment on above: Performed By: #### L IPID, BMP #### [facility] [address] [place] [address] Dr. Omid Bowden Calcium [Mass/Vol] 8.6 mg/dL Normal 8.5-10.1 [facility] Comment on above: Performed By: #### L IPID, BMP #### [facility] [address] [place] [address] Dr. Omid Bowden Chloride [Moles/Vol] 103 mmol/L Normal 98-107 [facility] Comment on above: Performed By: #### L IPID, BMP #### [facility] [address] [place] [address] Dr. Omid Bowden CO2 [Moles/Vol] 31.8 mmol/L Normal 21.0-32.0 [facility] Comment on above: Performed By: #### L IPID, BMP #### [facility] [address] [place] [address] Dr. Omid Bowden Creatinine [Mass/Vol] 0.99 mg/dL Normal 0.55-1.02 [facility] Comment on above: Performed By: #### L IPID, BMP #### [facility] [address] [place] [address] Dr. Omid Bowden EGFR-AF VINCENTIAN >60 Normal >=[address] [facility] Comment on above: Performed By: #### L IPID, BMP #### [facility] [address] [place] [address] Dr. Omid Bowden EGFR-NON AF VINCENTIAN 54 mL/min/1.73m2 Critically low >=60 [facility] Comment on above: Performed By: #### L IPID, BMP #### [facility] [address] [place] [address] [address] Omid Bowden Glucose [Mass/Vol] 112 mg/dL Critically high 74-106 [facility] Comment on above: Performed By: #### L IPID, BMP #### [facility] [address] [place] [address] [address] Omid oBwden Potassium [Moles/Vol] 3.3 mmol/L Critically low 3.5-5.1 [facility] Comment on above: Performed By: #### L IPID, BMP #### [facility] [address] [address] [address] Omid Bowden Sodium [Moles/Vol] 137 mmol/L Normal 136-145 [facility] Comment on above: Performed By: #### L IPID, BMP #### [facility] [address] [place] [address] [address] Omid Bowden Urea nitrogen [Mass/Vol] 20.0 mg/dL Critically high 7.0-18.0 [facility] Comment on above: Performed By: #### L IPID, BMP #### [facility] [address] [address] [address] Omid Bowden Urea nitrogen/Creatinine [Mass ratio] 20.2 mg/mg Normal [facility] Comment on above: Performed By: #### L IPID, BMP #### [facility] [address] [address] [address] Omid Bowden URINE MICROSCOPIC ONLYon BACTERIA TRACE Abnormal NONE SEEN [facility] Comment on above: Performed By: #### U MICRO, ERUR ####[facility] [address] [place] [address]DrMedardo Bowden Bacteria identified Cx Nom (U) INDICATED Normal [facility] Comment on above: Performed By: #### U MICRO, ERUR ####[facility] [address] [place] [id number] Bowden CAST NONE SEEN Normal NONE SEEN [facility] Comment on above: Performed By: #### U MICRO, ERUR ####[facility] [address] [place] [address]Dr. Omid Bowden Crystals LM Nom (Urine sed) NONE SEEN Normal NONE SEEN [facility] Comment on above: Performed By: #### U MICRO, ERUR ####[facility] [address] [place] [address]Dr. Omid Bowden Epithelial cells LM Ql (Urine sed) FEW Abnormal NONE SEEN /RARE [facility] Comment on above: Performed By: #### U MICRO, ERUR ####[facility] [address] [place] [address]Dr. Omid Bowden MUCOUS NONE SEEN Normal NONE SEEN [facility] Comment on above: Performed By: #### U MICRO, ERUR ####[facility] [address] [place] [address]Dr. Omid Bowden RBC 0-2 Normal 0-2 [facility] Comment on above: Performed By: #### U MICRO, ERUR ####[facility] [address] [place] [address]Dr. Omid Bowden WBC 20-50 Abnormal NONE SEEN [facility] Comment on above: Performed By: #### U MICRO, ERUR ####[facility] [address] [place] [address]Dr. Omid Bowden XR CHEST 1 Von 08-14-2022 [...] [place] Date: 2022-08-14 00:46 Normal [facility] Covid-19 PCR (CVDTB)on SARS-CoV-2 (COVID-19) RNA MARII+probe Ql (Unsp spec) Not detected Normal NOT DETECTED [facility] Comment on above: Result Comment: When diagnostic [...] for this test is supported by the [place] of Health and Human Service's declaration that [...] longer be used). Performed By: #### C [facility] #### [facility] [address] [place] [address] Dr. Omid Bowden MG MAMM RT DIAG FUon 022 MG MAMM RT DIAG FU Patient: HARMAN MCLEOD Exam Date: 08/08/2022 : 1940 Gender:F Ordering : DR MATEUS PERRY . Admission #: [id number] Family : Order #: [id number] CLICK HERE TO VIEW EXAM RADIOLOGY REPORT [...] uterine cancer at age 39. LOCATION: The [facility] BREAST COMPOSITION: Scattered areas fibroglandular density. FINDINGS: [...] George M.D. on 08/08/2022 at 15:28 Normal [facility] PROF CHEM 8 (BAS METB)on Anion gap [Moles/Vol] 9.3 mmol/L Normal [facility] Comment on above: Performed By: #### B MP #### [facility] [address] [place] [address] Dr. Omid Bowden Calcium [Mass/Vol] 8.1 mg/dL Critically low 8.5-10.1 [facility] Comment on above: Performed By: #### B MP #### [facility] [address] [address] [address] Omid Bowden Chloride [Moles/Vol] 100 mmol/L Normal 98-107 [facility] Comment on above: Performed By: #### B MP #### [facility] [address] [place] [address] Dr. Omid Bowden CO2 [Moles/Vol] 31.9 mmol/L Normal 21.0-32.0 [facility] Comment on above: Performed By: #### B MP #### [facility] [address] [address] [address] Omid Bowden Creatinine [Mass/Vol] 1.25 mg/dL Critically high 0.55-1.02 [facility] Comment on above: Performed By: #### B MP #### [facility] [address] [address] [address] Omid Bowden EGFR-AF VINCENTIAN 50 mL/min/1.73m2 Critically low >=60 [facility] Comment on above: Performed By: #### B MP #### [facility] [address] [place] [address] Dr. Omid Bowden EGFR-NON AF VINCENTIAN 41 mL/min/1.73m2 Critically low >=60 [facility] Comment on above: Performed By: #### B MP #### [facility] [address] [address] [address] Omid Bowden Glucose [Mass/Vol] 215 mg/dL Critically high 74-106 [facility] Comment on above: Performed By: #### B MP #### [facility] [address] [address] [address] Omid Bowden Potassium [Moles/Vol] 3.2 mmol/L Critically low 3.5-5.1 [facility] Comment on above: Performed By: #### B MP #### [facility] [address] [address] [address] Omid Bowden Sodium [Moles/Vol] 138 mmol/L Normal 136-145 [facility] Comment on above: Performed By: #### B MP #### [facility] [address] [address] [address] Omid Bowden Urea nitrogen [Mass/Vol] 32.0 mg/dL Critically high 7.0-18.0 [facility] Comment on above: Performed By: #### B MP #### [facility] [address] [address] [address] Omid Bowden Urea nitrogen/Creatinine [Mass ratio] 25.6 mg/mg Normal [facility] Comment on above: Performed By: #### B MP #### [facility] [address] [address] [address] Omid Bowden US BREAST RIGHT LIMITEDon US BREAST RIGHT LIMITED Patient: HARMAN MCLEOD Exam Date: 08/08/2022 : 1940 Gender:F Ordering : DR MATEUS PERRY . Admission #: [id number] Family : Order #: [id number] CLICK HERE TO VIEW EXAM RADIOLOGY REPORT [...] uterine cancer at age 39. LOCATION: [facility] BREAST COMPOSITION: Scattered areas fibroglandular density. FINDINGS: [...] M.D. on 08/08/2022 at 15:28 Normal [facility] CALCIUMon 08-02-2022 Calcium [Mass/Vol] 8.9 mg/dL Normal 8.5-10.1 [facility] Comment on above: Performed By: #### H GB #### [facility] [address] [address] [address] Omid Bowden CREATININEon 08-02-2022 Creatinine [Mass/Vol] 1.19 mg/dL Critically high 0.55-1.02 [facility] Comment on above: Performed By: #### H GB #### [facility] [address] [address] [address] Omid Bowden EGFR-AF VINCENTIAN 53 mL/min/1.73m2 Critically low >=60 [facility] Comment on above: Performed By: #### H GB #### [facility] [address] [address] [address] Omid Bowden EGFR-NON AF VINCENTIAN 44 mL/min/1.73m2 Critically low >=60 [facility] Comment on above: Performed By: #### H GB #### [facility] [address] [place], [place] [address] Dr. Omid Bowden MG MAMM SCREEN 3D DAVID CADon 07-19-2022 MG MAMM SCREEN 3D DAVID CAD Patient: HARMAN MCLEOD Exam Date: 07/19/2022 : 1940 Gender:F Ordering : DR MATEUS PERRY . Admission #: [id number] Family : Order #: [id number] CLICK HERE TO VIEW EXAM RADIOLOGY REPORT [...] uterine cancer at age 39. LOCATION: [facility] BREAST COMPOSITION: Scattered areas fibroglandular density. FINDINGS: [...] MD on 07/20/2022 at 07:33 Normal [facility] XR DEXA BONE DENSITYon 07-19 XR DEXA [...] by: JUDSON BAUMAN Date: 2022-07-19 20:17 Normal [facility] CALCIUM, IONIC (POC)on 06-28 POC Ionized Calcium 1.21 mmol/L 1.15 - 1 .33 mmol/L [facility] CHLORIDE (POC)on 06-28-2022 Chloride [Moles/Vol] 103 mmol/L 98 - 10 7 mmol/L [facility] Creatinine W/GFR Point of Ca reon 06-28-2022 Creatinine [Mass/Vol] 0.93 mg/dL 0.51 - 1.19 mg/dL [facility] eGFR, POC mL/min/1.73 m2 [facility] Comment on above: Effective Jun [...] 1.56 mmol/L High 0.56 - 1.39 mmol/L [facility] No Panel Informationon 06-28 Interpretation and review of laboratory results Abnormal [facility] POC Glucose Fingerstickon Glucose [Mass/Vol] 135 mg/dL High 65 - 105 mg/dL [facility] Interpretation and review of laboratory results Abnormal [facility] POCT Glucoseon 06-28-2022 Glucose [Mass/Vol] 147 mg/dL High 74 - 100 mg/dL [facility] POCT urea (BUN)on 06-28-2022 Urea nitrogen [Mass/Vol] 20 mg/dL 8 - 26 mg/dL [facility] POTASSIUM (POC)on 06-28-2022 Potassium [Moles/Vol] 3.7 mmol/L 3.5 - 4.5 mmol/L [facility] SODIUM (POC)on 06-28-2022 Sodium [Moles/Vol] 141 mmol/L 138 - 146 mmol/L [facility] PROF CHEM 8 (BAS METB)on Anion gap [Moles/Vol] 9.0 mmol/L Normal [facility] Comment on above: Performed By: #### B MP ####[facility] [address] [place] [address]Dr. Omid Kal Calcium [Mass/Vol] 9.0 mg/dL Normal 8.5-10.1 [facility] Comment on above: Performed By: #### B MP ####[facility] [address] [place] [address]Dr. Omid Bowden Chloride [Moles/Vol] 98 mmol/L Normal 98-107 [facility] Comment on above: Performed By: #### B MP ####[facility] [address] [place] [address]Dr. Omid Kal CO2 [Moles/Vol] 33.2 mmol/L Critically high 21.0-32.0 [facility] Comment on above: Performed By: #### B MP ####[facility] [address] [place] [address]Dr. Omid Bowden Creatinine [Mass/Vol] 1.32 mg/dL Critically high 0.55-1.02 [facility] Comment on above: Performed By: #### B MP ####[facility] [address] [place] [address]Dr. Omid Bowden EGFR-AF VINCENTIAN 47 mL/min/1.73m2 Critically low >=60 [facility] Comment on above: Performed By: #### B MP ####[facility] [address] [place] [address]Dr. Omid Bowden EGFR-NON AF VINCENTIAN 39 mL/min/1.73m2 Critically low >=60 [facility] Comment on above: Performed By: #### B MP ####[facility] [address] [place] [id number]. Omid Bowden Glucose [Mass/Vol] 220 mg/dL Critically high 74-106 [facility] Comment on above: Performed By: #### B MP ####[facility] [address] [place], [place] [address]Ff. Omid Bowden Potassium [Moles/Vol] 3.2 mmol/L Critically low 3.5-5.1 [facility] Comment on above: Performed By: #### B MP ####[facility] [address] [place] [id number]. Omid Bowden Sodium [Moles/Vol] 137 mmol/L Normal 136-145 [facility] Comment on above: Performed By: #### B MP ####[facility] [address] [place] [address]Dr. Omid Bowden Urea nitrogen [Mass/Vol] 31.0 mg/dL Critically high 7.0-18.0 [facility] Comment on above: Performed By: #### B MP ####[facility] [address] [place] [id number]. Omid Bowden Urea nitrogen/Creatinine [Mass ratio] 23.5 mg/mg Normal [facility] Comment on above: Performed By: #### B MP ####[facility] [address] [place] [id number]. Omid Bowden ECHOCARDIO M/2D COMPLETEon 0 04-12-2022 ECHOCARDIO M/2D COMPLETE Patient: HARMAN MCLEOD Exam Date: 04/12/2022 : 1940 Gender:F Ordering : [facility] Admission #: [id number] Family : Order #: [id number] CLICK HERE TO VIEW EXAM ECHOCARDIOGRAM REPORT [...] Keyes M.D. on 04/12/2022 at 19:15 Normal [facility] PROF CHEM 8 (BAS METB)on Anion gap [Moles/Vol] 12.4 mmol/L Normal [facility] Comment on above: Performed By: #### B MP ####[facility] [address] [place] [address]DrMedardo Bowden Calcium [Mass/Vol] 9.1 mg/dL Normal 8.5-10.1 [facility] Comment on above: Performed By: #### B MP ####[facility] [address] [id number] Bowden Chloride [Moles/Vol] 100 mmol/L Normal 98-107 [facility] Comment on above: Performed By: #### B MP ####[facility] [address] [id number] Bowden CO2 [Moles/Vol] 33.0 mmol/L Critically high 21.0-32.0 [facility] Comment on above: Performed By: #### B MP ####[facility] [address] [address]Dr. Omid Bowden Creatinine [Mass/Vol] 1.15 mg/dL Critically high 0.55-1.02 [facility] Comment on above: Performed By: #### B MP ####[facility] [address] [place], [place] [address]Dr. Omid Kal EGFR-AF VINCENTIAN 55 mL/min/1.73m2 Critically low >=60 [facility] Comment on above: Performed By: #### B MP ####[facility] [address] [place], [place] [address]Dr. Omid Kal EGFR-NON AF VINCENTIAN 46 mL/min/1.73m2 Critically low >=60 [facility] Comment on above: Performed By: #### B MP ####[facility] [address] [place], [place] [address]Dr. Omid Kal Glucose [Mass/Vol] 167 mg/dL Critically high 74-106 [facility] Comment on above: Performed By: #### B MP ####[facility] [address] [place], [place] [address]Dr. Omid Kal Potassium [Moles/Vol] 3.4 mmol/L Critically low 3.5-5.1 [facility] Comment on above: Performed By: #### B MP ####[facility] [address] [address]Dr. Omid Kal Sodium [Moles/Vol] 142 mmol/L Normal 136-145 [facility] Comment on above: Performed By: #### B MP ####[facility] [address] [place], [place] [address]Dr. Omid Kal Urea nitrogen [Mass/Vol] 23.0 mg/dL Critically high 7.0-18.0 [facility] Comment on above: Performed By: #### B MP ####[facility] [address] [place], [place] [address]Dr. Omid Bowden Urea nitrogen/Creatinine [Mass ratio] 20.0 mg/mg Normal [facility] Comment on above: Performed By: #### B MP ####[facility] [address] [place] [address]Dr. Omid Bowden SYMPTOMATIC COVID-19 ANTIGEN on 03-16-2022 EUA Statement SEE BELOW Normal The [facility] Comment on above: Result Comment: This test [...] Performed By: #### L IPID, BMP #### [facility] [address] [place] [address] Dr. Omid Bowden SARS-CoV-2 (COVID-19) RNA MARII+probe Ql (Unsp spec) Positive Critically abnormal NEGATIVE [facility] Comment on above: Performed By: #### L IPID BMP #### [facility] [address] [place] [address] Dr. Omid Bowden HEMOGLOBINon 03-15-2022 Hemoglobin (Bld) [Mass/Vol] 12.3 g/dL Normal 12.0-16.0 [facility] Comment on above: Performed By: #### H GB #### [facility] [address] [place] [address] Dr. Omid Bowden BNPon 02-15-2022 Natriuretic peptide B (Bld) [Mass/Vol] 598.0 pg/mL Normal <=1,800.0 [facility] Comment on above: Performed By: #### L IPID, BMP #### [facility] [address] [place] [address] Dr. Omid Bowden PROF CHEM 8 (BAS METB)on Anion gap [Moles/Vol] 11.9 mmol/L Normal Th [facility] Comment on above: Performed By: #### L IPID, BMP #### [facility] [address] [place] [address] Dr. Omid Bowden Calcium [Mass/Vol] 9.1 mg/dL Normal 8.5-10.1 [facility] Comment on above: Performed By: #### L IPID, BMP #### [facility] [address] [place] [address] Dr. Omid Bowden Chloride [Moles/Vol] 98 mmol/L Normal 98-107 [facility] Comment on above: Performed By: #### L IPID, BMP #### [facility] [address] [place] [address] Dr. Omid Bowden CO2 [Moles/Vol] 33.2 mmol/L Critically high 21.0-32.0 [facility] Comment on above: Performed By: #### L IPID, BMP #### [facility] [address] [place] [address] Dr. Omid Bowden Creatinine [Mass/Vol] 1.28 mg/dL Critically high 0.55-1.02 [facility] Comment on above: Performed By: #### L IPID, BMP #### [facility] [address] [place] [address] Dr. Omid Bowden EGFR-AF VINCENTIAN 49 mL/min/1.73m2 Critically low >=60 [facility] Comment on above: Performed By: #### L IPID, BMP #### [facility] [address] [place] [address] Dr. Omid Bowden EGFR-NON AF VINCENTIAN 40 mL/min/1.73m2 Critically low >=60 [facility] Comment on above: Performed By: #### L IPID, BMP #### [facility] [address] [place] [address] Dr. Omid Bowden Glucose [Mass/Vol] 182 mg/dL Critically high 74-106 T [facility] Comment on above: Performed By: #### L IPID, BMP #### [facility] [address] [address] [address] Omid Bowden Potassium [Moles/Vol] 3.1 mmol/L Critically low 3.5-5.1 [facility] Comment on above: Performed By: #### L IPID, BMP #### [facility] [address] [place] [address] Dr. Omid Bowden Sodium [Moles/Vol] 140 mmol/L Normal 136-145 [facility] Comment on above: Performed By: #### L IPID, BMP #### [facility] [address] [place] [address] Dr. Omid Bowden Urea nitrogen [Mass/Vol] 30.0 mg/dL Critically high 7.0-18.0 [facility] Comment on above: Performed By: #### L IPID, BMP #### [facility] [address] [place] [address] Dr. Omid Bowden Urea nitrogen/Creatinine [Mass ratio] 23.4 mg/mg Normal [facility] Comment on above: Performed By: #### L IPID, BMP #### [facility] [address] [place] [address] Dr. Omid Bowden XR CHEST 2 Von [...] by: ALFONSO GEORGE Date: 2022-02-09 11:53 Normal [facility] No Panel Informationon 12-[address] [facility] POCT Glucoseon 12-13-2021 Glucose [Mass/Vol] 196 mg/dL High 74 - 100 mg/dL [employer] Interpretation and review of laboratory results Abnormal [employer] POTASSIUM (POC)on 12-13-2021 Potassium [Moles/Vol] 3.7 mmol/L 3.5 - 4.5 mmol/L [employer] TYPE AND SCREENon 12-10-2021 ABO/Rh Positive [employer] Arm Band Number [id number] [facility] Ex[facility] Date 12/16/2021,2359 [facility] EKG 12 leadOrdered By: Dennis Garcia on 12-07-2021 Atrial Rate 66 BPM [employer] Work Phone: P Moraga 67 degrees [employer] Work Phone: P-R Interval 126 ms [employer] Work Phone: Q-T Interval 466 ms [employer] Work Phone: QRS Duration 150 ms [employer] Work Phone: QTc Calculation (Bazett) 488 ms [employer] Work Phone: R Moraga 32 degrees [employer] Work Phone: T Moraga 161 degrees [employer] Work Phone: Ventricular Rate 66 BPM [facility] Work Phone: [employer] Work Phone: EKG 12 leadon 12-07-2021 Sinus rhythm with Premature atrial complexes Left bundle branch block Abnormal ECG When compared with ECG of 12-MAY-2021 12:39, T wave inversion now evident in Inferior leads [facility] Dennis Sorensen MD - 12/07/2021 Sinus rhythm with Premature atrial complexes Left bundle branch block Abnormal ECG When compared with ECG of 12-MAY-2021 12:39, T wave inversion now evident in Inferior leads [employer] Work Phone: CBC auto differentialon 11-10 Absolute Eos # 0.13 [employer] [facility] th Absolute Immature Granulocyte 0.12 [employer] Absolute Lymph # 3.18 [facility] [place] # 1.22 High [facility] lth Basophils (Bld) [#/Vol] 0.05 10*3/uL [facility] Basophils/100 WBC (Bld) 0 % 0 - 2 % [facility] Eosinophils/100 WBC (Bld) 1 % 1 - 4 % [facility] Hematocrit (Bld) [Volume fraction] 38.4 % 36.3 - 47.1 % [facility] Hemoglobin.gastrointes tinal spec 1 Ql (Stl) 12.2 g/dL 11.9 - 15.1 g/dL [facility] Immature granulocytes/100 WBC (Bld) 1 % High [address] [facility] Interpretation and review of laboratory results Abnormal [facility] Lymphocytes/100 WBC (Bld) 25 % 24 - 43 % [facility] MCH (RBC) [Entitic mass] 29.9 pg 25.2 - 33.[address] [facility] MCHC (RBC) [Mass/Vol] 31.8 g/dL 28.4 - 34.8 g/dL [facility] MCV (RBC) [Entitic vol] 94.1 fL 82.6 - 102.[address] [facility] Monocytes/100 WBC (Bld) 10 % 3 - 12 % [facility] NRBC Automated 0.0 0.0 per [address] [facility] Platelet distribution width (Bld) [Ratio] 14.5 % High 11.8 - 14.4 % [facility] Platelet mean volume (Bld) [Entitic vol] 10.1 fL 8.1 - 13.[address] [facility] Platelets (Bld) [#/Vol] 266 10*3/uL [facility] RBC (Bld) [#/Vol] 4.08 10*6/uL 3.95 - 5.1 1 m/uL [facility] RBC (Bld) [#/Vol] ANISOCYTOSIS PRESENT [facility] Segmented neutrophils/100 WBC (Bld) 63 % 36 - 65 % [facility] [#/Vol] 12.6 10*3/uL High [facility] Comprehensive Metabolic Pane l w/ Reflex to MGon 12-06-2021 Albumin [Mass/Vol] 3.7 g/dL 3.5 - 5.2 g/dL [facility] Albumin/Globulin [Mass ratio] 1.1 {ratio} [facility] ALP (Bld) [Catalytic activity/Vol] 93 U/L 35 - 104 U/L [facility] ALT [Catalytic activity/Vol] 12 U/L 5 - 33 U/L [facility] Anion gap [Moles/Vol] 14 mmol/L 9 - 17 mmol/L [facility] AST [Catalytic activity/Vol] 12 U/L <[address] [facility] Bilirubin [Mass/Vol] 0.25 mg/dL Low 0.3 - 1 .2 mg/dL [facility] Calcium [Mass/Vol] 9.1 mg/dL 8.6 - 10. 4 mg/dL [facility] Chloride [Moles/Vol] 95 mmol/L Low 98 - 10 7 mmol/L [facility] CO2 [Moles/Vol] 30 mmol/L 20 - 31 mmol/L [facility] Creatinine [Mass/Vol] 1.07 mg/dL High 0.50 - 0.90 mg/dL [facility] Free PSA/Total PSA [Mass fraction] 7.2 g/dL 6.4 - 8.3 g/dL [facility] GFR 60 mL/min Low >60 [facility] GFR Non- 49 mL/min Low >[address] [facility] GFR/1.73 sq M.predicted MDRD (S/P/Bld) [Vol rate/Area] [facility] Comment on above: Average GFR for 70 o r more years old: 75 mL/min/1.73sq m Chronic Kidney Disease: <60 mL/min/1.73sq m Kidney failure: <15 mL/min/1.73sq m eGFR calculated using average adult body mass. Additional eGFR calculator available at: http://www.Catawiki.Newzstand/multiple_crcl_2011.htm Glucose [Mass/Vol] 188 mg/dL High 70 - 99 mg/dL [facility] Interpretation and review of laboratory results Abnormal [facility] Potassium [Moles/Vol] 3.3 mmol/L Low 3.7 - 5.3 mmol/L [facility] Sodium [Moles/Vol] 139 mmol/L 135 - 144 mmol/L [facility] Urea nitrogen (BldV) [Mass/Vol] 22 mg/dL 8 - 23 mg/dL [facility] Magnesiumon 12-06-2021 Magnesium [Mass/Vol] 1.6 mg/dL 1.6 - 2 .6 mg/dL [facility] No Panel Informationon 12-06 No acute process. [facility] RIS CONSOLIDATED EXAMINATION: TWO XRAY VIEWS OF [...] without acute process. IMPRESSION: No acute process. [employer] Phone: Radiology Study observation (narrative) [employer] Phone: No Panel InformationOrdered By: Kael Freeman on 12-06-2021 [employer] Phone: Creatinine W/GFR Point of Ca reOrdered By: Kin Abarca on 06-15-2021 Creatinine [Mass/Vol] 0.89 mg/dL 0.51 - 1.19 mg/dL [employer] Phone: GFR Non- >60 >60 mL/min [employer] Phone: GFR/1.73 sq M.predicted MDRD (S/P/Bld) [Vol rate/Area] mL/min/{1.73_m2} >60 mL/min [employer] Phone: GFR/1.73 sq M.predicted MDRD (S/P/Bld) [Vol rate/Area] [employer] Phone: Comment on above: Average GFR for 70 o r more years old: 75 mL/min/1.73sq m Chronic Kidney Disease: <60 mL/min/1.73sq m Kidney failure: <15 mL/min/1.73sq m eGFR calculated using average adult body mass. Additional eGFR calculator available at: http://www.Helios/multiple_crcl_2012.htm No Panel InformationOrdered By: Kin Abarca on 06-15-2021 [employer] Phone: POC Glucose FingerstickOrder ed By: Kin Abarca on 06-15-2021 Glucose [Mass/Vol] 163 mg/dL High 65 - 105 mg/dL [employer] Phone: Interpretation and review of laboratory results Abnormal [employer] Phone: [employer] Phone: POCT GlucoseOrdered By: Kin Abarca on 06-15-2021 Glucose [Mass/Vol] 186 mg/dL High 74 - 100 mg/dL [employer] Phone: Interpretation and review of laboratory results Abnormal [employer] Phone: POTASSIUM (POC)Ordered By: Yuriy Abarca on 06-15-2021 Potassium [Moles/Vol] 4.5 mmol/L 3.5 - 4.5 mmol/L [employer] Phone: EKG 12 leadOrdered By: Antoni Burks on 05-13-2021 Atrial Rate 67 BPM [employer] Phone: P Moraga 58 degrees [employer] Phone: P-R Interval 130 ms [employer] Phone: Q-T Interval 504 ms [employer] Phone: QRS Duration 144 ms [employer] Phone: QTc Calculation (Bazett) 532 ms [employer] Phone: R Moraga 20 degrees [employer] Phone: T Moraga 117 degrees [employer] Phone: Ventricular Rate 67 BPM [employer] Phone: Sinus rhythm with Premature atrial complexes Left bundle branch block Abnormal ECG No previous ECGs available [employer] Phone: Virgilio, Mhpn Incoming E kg Results From [employer] - 05/13/2021 1:30 PM EDT Sinus rhythm with Premature atrial complexes Left bundle branch block Abnormal ECG No previous ECGs available [employer] Phone: [employer] Phone: Basic Metabolic Panel w/ Ref alexis to MGOrdered By: Latonia Burks on 05-12-2021 Anion gap [Moles/Vol] 13 mmol/L 9 - 17 mmol/L [employer] Phone: Calcium [Mass/Vol] 9.4 mg/dL 8.6 - 10. 4 mg/dL [employer] Phone: Chloride [Moles/Vol] 102 mmol/L 98 - 10 7 mmol/L [employer] Phone: CO2 [Moles/Vol] 28 mmol/L 20 - 31 mmol/L [employer] Phone: Creatinine [Mass/Vol] 0.94 mg/dL High 0.50 - 0.90 mg/dL [employer] Phone: GFR >60 >60 mL/min [employer] Phone: GFR Non- 58 mL/min Low >60 [employer] Phone: GFR/1.73 sq M.predicted MDRD (S/P/Bld) [Vol rate/Area] [employer] Phone: Comment on above: Average GFR for 70 o r more years old: 75 mL/min/1.73sq m Chronic Kidney Disease: <60 mL/min/1.73sq m Kidney failure: <15 mL/min/1.73sq m eGFR calculated using average adult body mass. Additional eGFR calculator available at: http://www.Helios/multiple_crcl_2012.htm GFR/1.73 sq M.predicted MDRD (S/P/Bld) [Vol rate/Area] NOT REPORTED [employer] Phone: Glucose [Mass/Vol] 119 mg/dL High 70 - 99 mg/dL [employer] Phone: Interpretation and review of laboratory results Abnormal [employer] Phone: Potassium [Moles/Vol] 4.0 mmol/L 3.7 - 5.3 mmol/L [employer] Phone: Sodium [Moles/Vol] 143 mmol/L 135 - 144 mmol/L [employer] Phone: Urea nitrogen (BldV) [Mass/Vol] 18 mg/dL 8 - 23 mg/dL [employer] Phone: Urea nitrogen/Creatinine (Bld) [Mass ratio] NOT REPORTED [employer] Phone: [employer] Work Phone: CBC auto differentialOrdered By: Latonia Burks on 05-12-2021 Absolute Eos # 0.26 [employer] [facility] Work Phone: Absolute Immature Granulocyte 0.04 [employer] Work Phone: Absolute Lymph # 3.26 [employer] [facility] Work Phone: Absolute [place] # 0.84 [employer] [facility] Work Phone: Basophils (Bld) [#/Vol] 0.05 10*3/uL [employer] Work Phone: Basophils/100 WBC (Bld) 1 % 0 - 2 % [employer] Phone: Differential Type NOT REPORTED [employer] Phone: Eosinophils/100 WBC (Bld) 3 % 1 - 4 % [employer] Phone: Hematocrit (Bld) [Volume fraction] 36.9 % 36.3 - 47.1 % [employer] Phone: Hemoglobin.gastrointes tinal spec 1 Ql (Stl) 11.2 g/dL Low 11.9 - 15.1 g/dL [employer] Phone: Immature granulocytes/100 WBC (Bld) 0 % 0 [employer] Phone: Interpretation and review of laboratory results Abnormal [employer] Phone: Lymphocytes/100 WBC (Bld) 32 % 24 - 43 % [employer] Phone: MCH (RBC) [Entitic mass] 28.3 pg 25.2 - 33.5 pg [employer] Phone: MCHC (RBC) [Mass/Vol] 30.4 g/dL 28.4 - 34.8 g/dL [employer] Phone: MCV (RBC) [Entitic vol] 93.2 fL 82.6 - 102.9 fL [employer] Phone: Monocytes/100 WBC (Bld) 8 % 3 - 12 % [employer] Phone: NRBC Automated 0.0 0.0 per 100 WBC [employer] Phone: Platelet distribution width (Bld) [Ratio] 13.8 % 11.8 - 14.4 % [employer] Phone: Platelet Estimate NOT REPORTED [employer] Phone: Platelet mean volume (Bld) [Entitic vol] 9.5 fL 8.1 - 13.5 fL [employer] Phone: Platelets (Bld) [#/Vol] 310 10*3/uL [employer] Phone: RBC (Bld) [#/Vol] 3.96 10*6/uL 3.95 - 5.1 1 m/uL [employer] Phone: RBC (Bld) [#/Vol] NOT REPORTED [employer] Phone: Segmented neutrophils/100 WBC (Bld) 56 % 36 - 65 % [employer] Phone: Segs Absolute 5.70 [employer] Work Phone: WBC (Bld) [#/Vol] 10.2 10*3/uL [employer] Phone: WBC (Bld) [#/Vol] NOT REPORTED [employer] Phone: [employer] Phone: XR CHEST (2 VW)Ordered By: Joanie Burks on 05-12-2021 Senescent changes compatible with the age of the patient. No evidence of acute cardiopulmonary process. [employer] Phone: EXAMINATION: TWO XRA Y VIEWS OF [...] spine and visualized portions of the shoulders. [employer] Phone: Virgilio, Mhpn Incoming Radiant Results From [employer] - 05/12/2021 2:48 PM EDT EXAMINATION: TWO [...] patient. No evidence of acute cardiopulmonary process. [employer] Phone: [employer] Phone: Cardiovascular Lab Reporton 08-21-2020 Cardiovascular Lab Report [facility] Patient Name: [facility] L MR #: [id number] Department of Physician: Jose Maria Keyes M.D. Division of Service Date: 08/20/2020 Cardiology Birthdate: 1940 Adult Cardiovascular Room #: [facility] [address] [address] Cardiovascular Laboratory Report INDICATION: The patient is [...] signed informed consent. She was brought to analytical lab technician in a fasting state. The [...] CROSSMATCHon 2019 ABO INTERPRETATION A Normal [facility] Comment on above: Performed By: #### 6 [id number] #### [facility] [address] [facility] [place] [address], [facility] RH INTERPRETATION Positive Normal [facility] Comment on above: Performed By: #### 6 [id number] #### [facility] [address] [facility] [place] [address], [facility] Vital Signs Date Time Vital Sign Value Performing Clinician Facility 06-20-2024 10: Body height 152.4 cm Peyman Hensley DPM Work Phone: [facility] 06-20-2024 10: Body mass index (BMI) [Ratio] 28.32 kg/m2 Peyman Hensley DPM Work Phone: [facility] 06-20-2024 10: Body weight 65.77 kg Peyman Hensley DPM Work Phone: [facility] 06-20-2024 10:14-0400 Respiratory rate 18 /min Peyman Hensley DPM Work Phone: [facility] 05-01-2024 10:180400 Body height 149.86 cm MD Mateus Perry Work Phone: [facility] 05-01-2024 10:18-0400 Body mass index (BMI) [Ratio] 30.2 kg/m2 MD Mateus Perry Work Phone: [facility] 05-01-2024 10:180400 Body temperature 97.8 [degF] MD Mateus Perry Work Phone: [facility] 05-01-2024 10:180400 Body weight 68.03 kg MD Mateus Perry Work Phone: [facility] 05-01-2024 10:18-0400 Diastolic blood pressure 72 mm[Hg] MD Mateus Perry Work Phone: [facility] 05-01-2024 10:18-0400 Heart rate 80 /min MD Mateus Perry Work Phone: [facility] 05-01-2024 10:18-0400 Respiratory rate 16 /min MD Mateus Perry Work Phone: [facility] 05-01-2024 10:18-0400 SaO2% (BldA) [Mass fraction] 98 % MD Mateus Perry Work Phone: [facility] 05-01-2024 10:18-0400 Systolic blood pressure 118 mm[Hg] MD Mateus Perry Work Phone: [facility] 04-24-2024 11:13-0400 Body height 149.86 cm MD Mateus Perry Work Phone: [facility] 04-24-2024 11:13-0400 Body mass index (BMI) [Ratio] 36.3 kg/m2 MD Mateus Perry Work Phone: [facility] 04-24-2024 11:13-0400 Body weight 81.64 kg MD Mateus Perry Work Phone: [facility] 04-24-2024 11:06-0400 Body temperature 98.8 [degF] MD Mateus Perry Work Phone: [facility] 04-24-2024 11:06-0400 Diastolic blood pressure 75 mm[Hg] MD Mateus Perry Work Phone: [facility] 04-24-2024 11:06-0400 Heart rate 97 /min MD Mateus Perry Work Phone: [facility] 04-24-2024 11:06-0400 Respiratory rate 20 /min MD Mateus Perry Work Phone: [facility] 04-24-2024 11:06-0400 Systolic blood pressure 118 mm[Hg] MD Mateus Perry Work Phone: [facility] 04-10-2024 10:30-0400 Body height 149.86 cm MD Mateus Perry Work Phone: [facility] 04-10-2024 10:30-0400 Body mass index (BMI) [Ratio] 36.3 kg/m2 MD Mateus Perry Work Phone: [facility] 04-10-2024 10:30-0400 Body weight 81.64 kg MD Mateus Perry Work Phone: [facility] 03-26-2024 09:51-0400 Body height 149.86 cm MD Mateus Perry Work Phone: [facility] 03-26-2024 09:51-0400 Body mass index (BMI) [Ratio] 36.3 kg/m2 MD Mateus Perry Work Phone: [facility] 03-26-2024 09:51-0400 Body weight 81.64 kg MD Mateus Perry Work Phone: [facility] 03-26-2024 09:36-0400 Body temperature 97.3 [degF] MD Mateus Perry Work Phone: [facility] 03-26-2024 09:36-0400 Diastolic blood pressure 61 mm[Hg] MD Mateus Perry Work Phone: [facility] 03-26-2024 09:36-0400 Heart rate 86 /min MD Mateus Perry Work Phone: [facility] 03-26-2024 09:36-0400 Respiratory rate 18 /min MD Mateus Perry Work Phone: [facility] 03-26-2024 09:36-0400 Systolic blood pressure 128 mm[Hg] MD Mateus Perry Work Phone: [facility] 06-20-2023 15:29-0400 Body height 154.9 cm Winnie Ramirez PA-C Work Phone: [facility] 06-20-2023 15:29-0400 Body temperature 97.39 [degF] Winnie Ramirez PA-C Work Phone: [facility] 06-20-2023 15:29-0400 Body weight 84.64 kg Winnie Ramirez PA-C Work Phone: [facility] 06-20-2023 15:29-0400 Diastolic blood pressure 55 mm[Hg] Winnie Ramirez PA-C Work Phone: [facility] 06-20-2023 15:29-0400 Heart rate 72 /min Winnie Ramirez PA-C Work Phone: [facility] 06-20-2023 15:29-0400 Respiratory rate 16 /min Winnie Ramirez PA-C Work Phone: [facility] 06-20-2023 15:29-0400 SaO2% (BldA) [Mass fraction] 96 % Winnie Ramirez PA-C Work Phone: [facility] 06-20-2023 15:29-0400 Systolic blood pressure 138 mm[Hg] Winnie Ramirez PA-C Work Phone: [facility] 06-01-2023 08:45-0400 Body height 154.94 cm Christiano Gonzales Other [employer] Other 06-01-2023 08:45-0400 Body mass index (BMI) [Ratio] 34.57 kg/m2 Christiano Gonzales Other [employer] Other 06-01-2023 08:45-0400 Body temperature 97.8 [degF] Christiano Gonzales Other [facility] Other 06-01-2023 08:45-0400 Body weight 83.01 kg Christiano Gonzales Other [facility] Other 06-01-2023 08:45-0400 Diastolic blood pressure 72 mm[Hg] Christiano Gonzales Other [facility] Other 06-01-2023 08:45-0400 SaO2% (BldA) [Mass fraction] 93 % Christiano Gonzales Other [facility] Other 06-01-2023 08:45-0400 Systolic blood pressure 130 mm[Hg] Christiano Gonzales Other [facility] Other 03-09-2023 08:45-0400 Body height 154.94 cm Millie Storm Other [facility] Other 03-09-2023 08:45-0400 Body mass index (BMI) [Ratio] 34.57 kg/m2 Millie Storm Other [facility] Other 03-09-2023 08:45-0400 Body temperature 96.8 [degF] Millie Storm Other [facility] Other 03-09-2023 08:45-0400 Body weight 83.01 kg Millie Storm Other [facility] Other 03-09-2023 08:45-0400 Diastolic blood pressure 56 mm[Hg] Millie Storm Other [facility] Other 03-09-2023 08:45-0400 SaO2% (BldA) [Mass fraction] 97 % Millie Storm Other [facility] Other 03-09-2023 08:45-0400 Systolic blood pressure 118 mm[Hg] Millie Storm Other [facility] Other 02-14-2023 10:19-0400 Body height 154.9 cm Wallace Stone MD Work Phone: [facility] 02-14-2023 10:19-0400 Body temperature 97.39 [degF] Wallace Stone MD Work Phone: [facility] 02-14-2023 10:19-0400 Body weight 84.46 kg Wallace Stone MD Work Phone: [facility] 02-14-2023 10:19-0400 Diastolic blood pressure 90 mm[Hg] Wallace Stone MD Work Phone: [facility] 02-14-2023 10:19-0400 Heart rate 102 /min Wallace Stone MD Work Phone: [facility] 02-14-2023 10:19-0400 Respiratory rate 16 /min Wallace Stone MD Work Phone: [facility] 02-14-2023 10:19-0400 SaO2% (BldA) [Mass fraction] 95 % Wallace Stone MD Work Phone: [facility] 02-14-2023 10:19-0400 Systolic blood pressure 151 mm[Hg] Wallace Stone MD Work Phone: [facility] 12-07-2022 14:00-0400 Body height 154.94 cm Millie Storm Other [facility] Other 12-07-2022 14:00-0400 Body mass index (BMI) [Ratio] 35.71 kg/m2 Millie Storm Other [facility] Other 12-07-2022 14:00-0400 Body temperature 97.6 [degF] Millie Storm Other [facility] Other 12-07-2022 14:00-0400 Body weight 85.73 kg Millie Storm Other [facility] Other 12-07-2022 14:00-0400 Diastolic blood pressure 68 mm[Hg] Millie Storm Other [facility] Other 12-07-2022 14:00-0400 SaO2% (BldA) [Mass fraction] 93 % Millie Storm Other [facility] Other 12-07-2022 14:00-0400 Systolic blood pressure 116 mm[Hg] Millie Storm Other [facility] Other 11-29-2022 11:53-0400 Diastolic blood pressure 54 mm[Hg] MD Mateus Perry Work Phone: [facility] 11-29-2022 11:53-0400 Heart rate 67 /min MD Mateus Perry Work Phone: [facility] 11-29-2022 11:53-0400 Respiratory rate 16 /min MD Mateus Perry Work Phone: [facility] 11-29-2022 11:53-0400 SaO2% (BldA) [Mass fraction] 94 % MD Matues Perry Work Phone: [facility] 11-29-2022 11:53-0400 Systolic blood pressure 141 mm[Hg] MD Mateus Perry Work Phone: [facility] 11-29-2022 09:13-0400 Body height 154.94 cm MD Mateus Perry Work Phone: [facility] 11-29-2022 09:13-0400 Body weight 81.64 kg MD Mateus Perry Work Phone: [facility] 11-23-2022 11:00-0400 Body height 154.94 cm Christiano Gonzales Other [facility] Other 11-23-2022 11:00-0400 Body temperature 97.8 [degF] Christiano Gonzales Other [facility] Other 11-23-2022 11:00-0400 Diastolic blood pressure 62 mm[Hg] Christiano Gonzales Other [facility] Other 11-23-2022 11:00-0400 SaO2% (BldA) [Mass fraction] 96 % Christiano Gonzales Other [facility] Other 11-23-2022 11:00-0400 Systolic blood pressure 110 mm[Hg] Christiano Gonzales Other [facility] Other 11-09-2022 13:44-0500 Body height 154.9 cm Wallace Stone MD Work Phone: [facility] 11-09-2022 13:44-0500 Body temperature 97.11 [degF] Wallace Stone MD Work Phone: [facility] 11-09-2022 13:44-0500 Body weight 84.73 kg Wallace Stone MD Work Phone: [facility] 11-09-2022 13:44-0500 Diastolic blood pressure 72 mm[Hg] Wallace Stone MD Work Phone: [facility] 11-09-2022 13:44-0500 Heart rate 66 /min Wallace Stone MD Work Phone: [facility] 11-09-2022 13:44-0500 Respiratory rate 18 /min Wallace Stone MD Work Phone: [facility] 11-09-2022 13:44-0500 SaO2% (BldA) [Mass fraction] 100 % Wallace Stone MD Work Phone: [facility] 11-09-2022 13:44-0500 Systolic blood pressure 142 mm[Hg] Wallace Stone MD Work Phone: [facility] 09-22-2022 11:24-0500 Body height 154.9 cm Wallace Stone MD Work Phone: [facility] 09-22-2022 11:24-0500 Body temperature 97.81 [degF] Wallace Stone MD Work Phone: [facility] 09-22-2022 11:24-0500 Body weight 84.82 kg Wallace Stone MD Work Phone: [facility] 09-22-2022 11:24-0500 Diastolic blood pressure 64 mm[Hg] Wallace Stone MD Work Phone: [facility] 09-22-2022 11:24-0500 Heart rate 70 /min Wallace Stone MD Work Phone: [facility] 09-22-2022 11:24-0500 Respiratory rate 16 /min Wallace Stone MD Work Phone: [facility] 09-22-2022 11:24-0500 SaO2% (BldA) [Mass fraction] 94 % Wallace Stnoe MD Work Phone: [facility] 09-22-2022 11:24-0500 Systolic blood pressure 137 mm[Hg] Wallace Stone MD Work Phone: [facility] 09-09-2022 15:06-0500 Blood Pressure Location Iliana NILL [facility] 09-09-2022 15:06-0500 Diastolic blood pressure 68 mm[Hg] Iliana NILL [facility] 09-09-2022 15:06-0500 Heart rate 68 /min Iliana NILL [facility] 09-09-2022 15:06-0500 Respiratory rate 16 /min Iliana NILL [facility] 09-09-2022 15:06-0500 Systolic blood pressure 130 mm[Hg] Iliana NILL [facility] 06-28-2022 12:00-0400 SaO2% (BldA) [Mass fraction] 95 % Emma Plunkett MD Work Phone: [facility] 06-28-2022 11:50-0400 Body temperature 97.3 [degF] Emma Plunkett MD Work Phone: [facility] 06-28-2022 11:50-0400 Diastolic blood pressure 50 mm[Hg] Emma Plunkett MD Work Phone: [facility] 06-28-2022 11:50-0400 Heart rate 69 /min Emma Plunkett MD Work Phone: [facility] 06-28-2022 11:50-0400 Respiratory rate 16 /min Emma Plunkett MD Work Phone: [facility] 06-28-2022 11:50-0400 Systolic blood pressure 115 mm[Hg] Emma Plunkett MD Work Phone: [facility] 06-28-2022 07:36-0400 Body height 154.9 cm Emma Plunkett MD Work Phone: [facility] 06-28-2022 07:36-0400 Body mass index (BMI) [Ratio] 34.58 kg/m2 Emma Plunkett MD Work Phone: [facility] 06-28-2022 07:36-0400 Body weight 83.01 kg Emma Plunkett MD Work Phone: [facility] 12-13-2021 15:45-0400 Body temperature 97 [degF] Emma Plunkett MD Work Phone: [facility] 12-13-2021 15:45-0400 Diastolic blood pressure 96 mm[Hg] Emma Plunkett MD Work Phone: [facility] 12-13-2021 15:45-0400 Heart rate 65 /min Emma Plunkett MD Work Phone: [facility] 12-13-2021 15:45-0400 Respiratory rate 14 /min Emma Plunkett MD Work Phone: [facility] 12-13-2021 15:45-0400 SaO2% (BldA) [Mass fraction] 94 % Emma Plunkett MD Work Phone: [facility] 12-13-2021 15:45-0400 Systolic blood pressure 113 mm[Hg] Emma Plunkett MD Work Phone: [facility] 12-13-2021 09:46-0400 Body height 154.9 cm Emma Plunkett MD Work Phone: [facility] 12-13-2021 09:46-0400 Body mass index (BMI) [Ratio] 36.09 kg/m2 Emma Plunektt MD Work Phone: [facility] 12-13-2021 09:46-0400 Body weight 86.64 kg Emma Plunkett MD Work Phone: [facility] 12-06-2021 14:46-0400 Body height 154.[address] [facility] 12-06-2021 14:46-0400 Body mass index (BMI) [Ratio] 36.09 kg/m2 [facility] 12-06-2021 14:46-0400 Body temperature 96.4 [degF] [facility] 2 [facility] 12-06-2021 14:46-0400 Body weight 86.64 kg [facility] 2 [facility] 12-06-2021 14:46-0400 Diastolic blood pressure 67 mm[Hg] Stv 2 [facility] 12-06-2021 14:46-0400 Heart rate 62 /min [facility] 12-06-2021 14:46-0400 Respiratory rate 20 /min St[facility] 2 [facility] 12-06-2021 14:46-0400 SaO2% (BldA) [Mass fraction] 97 % [address] [facility] 12-06-2021 14:46-0400 Systolic blood pressure 153 mm[Hg] [facility] 06-15-2021 10:14-0400 Body temperature 97.81 [degF] Kin Abarca MD Work Phone: [employer] Work Phone: 06-15-2021 10:14-0400 Diastolic blood pressure 58 mm[Hg] Kin Abarca MD Work Phone: [employer] Work Phone: 06-15-2021 10:14-0400 Heart rate 61 /min Kin Abarca MD Work Phone: [employer] Work Phone: 06-15-2021 10:14-0400 Respiratory rate 14 /min Kin Abarca MD Work Phone: [employer] Work Phone: 06-15-2021 10:14-0400 SaO2% (BldA) [Mass fraction] 96 % Kin Abarca MD Work Phone: [employer] Work Phone: 06-15-2021 10:14-0400 Systolic blood pressure 113 mm[Hg] Kin Abarca MD Work Phone: [employer] Work Phone: 06-15-2021 08:24-0400 Body height 154.9 cm Kin Abarca MD Work Phone: [employer] Work Phone: 06-15-2021 08:24-0400 Body mass index (BMI) [Ratio] 34.96 kg/m2 Kin Abarca MD Work Phone: [employer] Work Phone: 06-15-2021 08:24-0400 Body weight 83.92 kg Kin Abarca MD Work Phone: [employer] Work Phone: 05-12-2021 12:53-0400 Body height 154.9 cm [facility] [employer] Work Phone: 05-12-2021 12:53-0400 Body mass index (BMI) [Ratio] 35.52 kg/m2 [facility] [employer] Work Phone: 05-12-2021 12:53-0400 Body temperature 96.8 [degF] [facility] [employer] Work Phone: 05-12-2021 12:53-0400 Body weight 85.28 kg [facility] [employer] Work Phone: 05-12-2021 12:53-0400 Diastolic blood pressure 66 mm[Hg] [facility] [employer] Phone: 05-12-2021 12:53-0400 Heart rate 57 /min [facility] [employer] Phone: 05-12-2021 12:53-0400 Respiratory rate 18 /min [facility] [employer] Phone: 05-12-2021 12:53-0400 SaO2% (BldA) [Mass fraction] 96 % [facility] [employer] Phone: 05-12-2021 12:53-0400 Systolic blood pressure 150 mm[Hg] [facility] [employer] Phone: Encounters Encounter Date Encounter Type Care Provider Facility Start: 07-17-2024 End: 07-17-2024 ambulatory [facility] Start: 07-10-2024 ambulatory [facility] Start: 07-10-2024 ambulatory [facility] Start: 07-02-2024 End: 07-02-2024 ambulatory [facility] Start: 06-20-2024 End: 06-20-2024 Bamboo flowsheet Peyman [...] underlying condition with diabetic polyneuropathy, 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 alf insulin use (CMS/HCC); Pain due to onychomycosis of toenails of both feet Start: 06-12-2024 End: 06-12-2024 ambulatory JOSE MARIA CHAUSARAH [facility] Start: 05-27-2024 End: 05-27-2024 ambulatory CHERYL FARIA [facility] Start: 05-01-2024 End: 05-01-2024 ambulatory MD Mateus Perry Work Phone: [facility] Work Phone: Start: 05-01-2024 End: 05-01-2024 Patient encounter procedure MD Mateus Perry Work Phone: [facility] Work Phone: Start: 04-24-2024 End: 04-24-2024 ambulatory MD Mateus Perry Work Phone: [facility] Work Phone: Start: 04-24-2024 End: 04-24-2024 Discharged Recurring MD Mateus Perry Work Phone: [facility] Work Phone: Start: 04-09-2024 End: 04-09-2024 Patient encounter procedure MD Mateus Perry Work Phone: [facility] [place] Work Phone: Start: 04-09-2024 End: 04-09-2024 ambulatory MD Mateus Perry Work Phone: [facility] Work Phone: Start: 03-26-2024 Registered Recurring MD Yvonne Perry Work Phone: [facility] Work Phone: Start: 06-20-2023 End: 06-20-2023 ambulatory WINNIE GUZMÁN Facility:[facility] Start: 06-20-2023 End: 06-20-2023 ambulatory Winnie Hoa Ramirez DAMON Work Phone: Hematology/Oncology Comment on above: 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, estrogen receptor positive (HCC) (Primary Dx); Stage 3a chronic kidney disease (HCC) Start: 06-20-2023 End: 06-20-2023 Patient encounter procedure Winnie Guzmán PA-C Work Phone: [facility] Start: 06-01-2023 End: 06-01-2023 ambulatory Christiano Gonzales Other [facility] Other Start: 06-01-2023 Office outpatient vi sit 15 minutes Christiano Gonzales [facility] Vascular Surgery Start: 04-06-2023 End: 04-07-[address] [facility] Start: 03-09-2023 End: 03-09-2023 ambulatory Millie Storm Other [facility] Other Start: 03-09-2023 Patient encounter procedure Millie Storm [facility] Vascular Surgery Start: 03-06-2023 End: 03-06-2023 [address] G[address]ZA [facility] Start: 02-14-2023 End: 02-14-2023 ambulatory WALLACE STONE Facility:[facility] Start: 02-14-2023 End: 02-14-2023 ambulatory Wallace Stone MD Work Phone: Hematology/Oncology Comment on above: 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, estrogen receptor positive (HCC) (Primary Dx); Rash; Other eczema; Stage 3a chronic kidney disease (HCC) Start: 02-14-2023 End: 02-14-2023 Patient encounter procedure Wlalace Stone MD Work Phone: [facility] Start: 01-19-2023 End: 01-19-[address] MATEUS PERRY . Facility: Start: 12-08-2022 End: 12-08-2022 ambulatory Millie Storm Other [facility] Other Start: 12-08-2022 Telephone encounter Millie Dc V[facility] Start: 12-07-2022 End: 12-07-2022 ambulatory Millie Storm Other [facility] Other Start: 12-07-2022 Patient encounter procedure Millie Storm [facility] Start: 11-29-2022 End: 11-29-2022 Admission to same day surgery center MD Mateus Perry Work Phone: [facility] Work Phone: Start: 11-29-2022 End: 11-29-2022 ambulatory MD Mateus Perry Work Phone: [facility] Work Phone: Start: 11-24-2022 End: 11-25-2022 ambulatory LAOTNIA [facility] Start: 11-24-2022 End: 11-24-2022 Subsequent hospital visit by physician Mateus Perry MD Work Phone: [facility] Start: 11-23-2022 End: 11-23-2022 ambulatory Christiano Gonzales Other [facility] Other Start: 11-23-2022 Office outpatient ne w 60 minutes Christiano Gonzales [facility] Vascular Surgery Start: 11-22-2022 End: 11-23-2022 ambulatory Iliana GAGNON Facility: [place] Start: 11-16-2022 End: 11-16-[address] MATEUS PERRY . 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, estrogen receptor positive (HCC) (Primary Dx); Claudication in peripheral vascular disease (HCC) Start: 11-09-2022 End: 11-09-2022 Patient encounter procedure Wallace Stone MD Work Phone: [facility] Start: 11-09-2022 Telephone encounter Wallace carolina MD Work Phone: [facility] Comment on above: Referral Information (Vascular Consult) Start: 11-08-2022 End: 11-09-2022 ambulatory Iliana GAGNON Facility:[facility] Start: 11-08-2022 End: 11-08-2022 Patient encounter procedure Iliana R NILL General Surgery Nill/Said [place] Start: 11-04-2022 End: 11-05-2022 ambulatory Iliana GAGNON Facility:[facility] Start: 11-04-2022 End: 11-04-2022 Patient encounter procedure Iliana R CHELSI General Surgery Nill/Said [place] Start: 11-02-2022 End: 11-03-[address] MATEUS PERRY . Facility: Start: 10-25-2022 End: 10-26-2022 ambulatory Iliana GAGNON Facility:[facility] Start: 10-25-2022 End: 10-25-2022 Patient encounter procedure Iliana R NILL General Surgery Nill/Said [place] Start: 10-19-2022 End: 10-20-[address] ILIANA GAGNON . Facility:[facility] Start: 10-15-[address] ILIANA Batres Facil ity:[facility] Start: 10-12-2022 Encounter for preprocedural laboratory examination DR ILIANA Batres [facility] Start: 10-11-2022 End: 10-12-[address] ILIANA GAGNON . Facility:[facility] Start: 10-11-2022 End: 10-12-2022 Encounter for preprocedural laboratory examination DR ILIANA Batres Facility:[facility] Start: 09-30-2022 End: 10-01-[address] MATEUS PERRY . Facility:[facility] Start: 09-22-2022 Telephone encounter Lars Wilkerson RN Work Phone: Hematology/Oncology Comment on above: Care Coordination (S urgery update) Start: 09-22-2022 End: 09-22-2022 ambulatory WALLACE STONE Facility:[facility] Start: 09-22-2022 End: 09-22-2022 ambulatory Wallace Stone MD Work Phone: Hematology/Oncology Comment on above: 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, estrogen receptor positive (HCC) (Primary Dx) Start: 09-22-2022 End: 09-22-2022 Patient encounter procedure Wallace Stone MD Work Phone: [facility] [place] [place] Comment on above: Malignant neoplasm o f [...] Facility:[facility] Start: 08-08-2022 End: 08-09-[address] MTAEUS PERRY . Facility:[facility] Start: 08-02-2022 End: 08-02-[address] MATEUS PERRY . Facility:[facility] Start: 07-19-2022 End: 07-20-[address] MATEUS PERRY . Facility:[facility] Start: 06-28-2022 End: 06-28-2022 Subsequent hospital visit by physician Emma Garza MD Work Phone: [facility] Comment on above: Vaginal dysplasia Start: 06-22-2022 End: 06-23-2022 ambulatory SONALI GUPTAER Facility:[facility] Start: 05-04-2022 ambulatory SONALI MCKINNEY Facility :[facility] Start: 04-12-2022 End: 04-13-2022 ambulatory SONALI MCKINNEY Facility:[facility] Start: 03-17-2022 End: 03-17-[address] MATEUS PERRY . Facility:[facility] Start: 03-16-2022 End: 03-16-[address] MATEUS PERRY . Facility:[facility] Start: 03-15-2022 End: 03-16-2022 ambulatory [facility] Facility:[facility] Start: 02-15-2022 End: 02-16-2022 ambulatory [facility] Facility:[facility] Start: 02-09-2022 End: 02-10-2022 ambulatory [facility] Facility:[facility] Start: 12-13-2021 End: 12-13-2021 Subsequent hospital visit by physician Emma Garza MD Work Phone: [facility] Comment on above: Post-operative state (Primary Dx) Start: 12-06-2021 End: 12-08-2021 Subsequent hospital visit by physician Jesse Aragon [facility] Comment on above: Arrived Start: 12-06-2021 [...] hospital visit by physician Jesse Hendrix Xr [facility] Comment on above: Arrived Start: 05-12-2021 [...] [Moles/vol ume] in Serum or Plasma Kin L [place] MD Work Phone: Start: 05-12-2021 BASIC METABOLIC PANE L W/ REFLEX TO MG FOR LOW K Latonia Burks PA-[employer] Work Phone: Start: 05-12-2021 Blood count complete auto&auto difrntl wbc Latonia Burks PA-[employer] Work Phone: Start: 05-12-2021 Radiologic exam ches t 2 views Latonia Burks PAHarimata Work Phone: Start: 05-12-2021 Ecg routine ecg w/le ast 12 lds i&r only Latonia Burks PAHarimata Work Phone: Start: 08-20-2020 Antibody screen Comment on above: Performed By: #### [id number] #### [address] Start: 01-16-2017 History of placement of stent for coronary artery disease S/P coronary artery stent placement Wallace Stone MD Work Phone: Appendectomy Iliana DORANBerna Colposcopy Iliana DORANBerna Cryosurgery of lesio n of cervix Iliana ANDREEABerna Insertion of arteria l stent Iliana DORANBerna Insertion of stent i n femoral vein Iliana DORANBerna Repair of aneurysm Iliana BROWN Total hysterectomy v ia vaginal approach Iliana ANDREEABerna Ultrasonography guid ed biopsy of right breast Iliana DORANBerna Urinary bladder reconstruction Iliana DORANBerna Plan of Treatment Date Care Activity Detail Author Start: 08-29-2024 End: 08-29-2024 Patient encounter procedure 08/29/2024 10:00 AM EST Office Visit [facility] [address] [place] [address] Peyman Hensley DPM [address] [facility] [place] [place] [address] [place] [address] [facility] Start: 06-20-2024 Hemoglobin/Hematocrit Hemoglobin/Hem atocrit [facility] Start: 06-20-2024 Serum Creatinine Serum Creatinine [facility] Start: 05-12-2024 Influenza vaccination Influenza Vacc ine (#1) [facility] Start: 02-15-2024 HEM[facility] Start: 02-15-2024 SERUM CREATININE SERUM CREATININE [facility] Start: 06-16-2023 End: 08-16-2023 CBC W Auto Differential panel - Blood CBC + DIFF Lab Routine 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, estrogen receptor positive (HCC) Expected: 06/16/2023 (Approximate), Expires: 08/16/2023 [facility] Work Phone: Comment on above: Expected: 06/16/2023 (Approximate), Expires: 08/16/2023 Start: 06-16-2023 End: 08-16-2023 Comprehensive metabolic 2000 panel - Serum or Plasma COMP METABOLIC PANEL Lab Routine 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, estrogen receptor positive (HCC) Expected: 06/16/2023 (Approximate), Expires: 08/16/2023 [facility] Work Phone: Comment on above: Expected: 06/16/2023 (Approximate), Expires: 08/16/2023 Start: 05-12-2023 Covid-19 Vaccine ( season) Covid-19 Vaccine ( season) [facility] Start: 05-12-2023 Influenza vaccination [facility] Start: 04-12-2023 End: 04-12-2023 Patient encounter procedure 04/12/2023 Office Visit Gynecologic Oncology Latonia Brush PA-C [address] [facility] [address] [place] [address] [facility] Start: 02-09-2023 End: 04-11-2023 CBC W Auto Differential panel - Blood CBC + DIFF Lab Routine 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, estrogen receptor positive (HCC) Expected: 02/09/2023 (Approximate), Expires: 04/11/2023 [facility] Work Phone: Comment on above: Expected: 02/09/2023 (Approximate), Expires: 04/11/2023 Start: 02-09-2023 End: 04-11-2023 Comprehensive metabolic 2000 panel - Serum or Plasma COMP METABOLIC PANEL Lab Routine 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, estrogen receptor positive (HCC) Expected: 02/09/2023 (Approximate), Expires: 04/11/2023 [facility] Work Phone: Comment on above: Expected: 02/09/2023 (Approximate), Expires: 04/11/2023 Start: 12-13-2022 Potassium monitoring Potassium monit [facility] Start: 12-06-2022 Creatinine measurement Creatinine mo [facility] Start: 12-06-2022 Potassium monitoring Potassium monit [facility] Start: 11-29-2022 End: 11-29-2022 [facility] Start: 09-11-2022 ADVANCE DIRECTIVE DISCUSSION ADVANCE DIRECTIVE DISCUSSION [facility] Start: 09-11-2022 DEPRESSION ASSESSMENT DEPRESSION ASS ESSMENT [facility] Start: 07-27-2022 End: 07-27-2022 Patient encounter procedure 07/27/2022 Office Visit Gynecologic Oncology Emma Garza MD [address] [place] [address], [address] [id number] [facility] Gynecologic Oncology Services Start: 06-28-2022 End: 06-28-2022 VULVA VAGINAL CERVIX LESION EXCISION LASER VULVA VAGINAL CERVIX LESION EXCISION LASER Vaginal dysplasia 06/28/2022 9:04 AM EDT [facility] Start: 06-15-2022 Creatinine measurement Creatinine mo [facility] Work Phone: Start: 06-15-2022 Potassium monitoring Potassium monit [facility] Work Phone: Start: 05-12-2022 Creatinine measurement Creatinine mo nitloco [facility] Work Phone: Start: 05-12-2022 Influenza vaccination INFLUENZA (#1) [facility] Start: 05-12-2022 Potassium monitoring Potassium monit loco [facility] [employer] Phone: Start: 04-11-2022 Influenza vaccination Flu vaccine (# 1) [facility] Start: 01-14-2022 End: 01-14-2022 Patient encounter procedure 01/14/2022 Office Visit Gynecologic Oncology Latonia Burks PA-C [address] [facility] [address] [place] [id number] [facility] Gynecologic Oncology Services Start: 12-13-2021 End: 12-13-2021 VAGINECTOMY [facility] Start: 12-13-2021 End: 12-13-2021 Admission to same day surgery center [facility] Comment on above: VAGINECTOMY, CYSTOSC OPY CYSTOSCOPY, VAGINECT PATY Start: 12-13-2021 Subsequent hospital visit by physician 12/13/2021 Hospital Encounter IP Unit Emma Garza MD [address] [facility] [address], [address] [place] [address] [facility] Start: 12-13-2021 End: 12-13-2021 Vaginectomy complete removal vaginal wall VAGINECTOMY VAGINAL DYSPLASIA, RULE OUT CANCER 12/13/2021 10:20 AM EDT [facility] Start: 10-31-2021 Annual Wellness Visi t (AWV) Annual Wellness Visit (AWV) [facility] Start: 10-15-2021 COVID-19 VACCINE (4 - Booster for Moderna series) COVID-19 VACCINE (4 - Booster for Moderna series) [facility] Start: 07-01-2021 End: 07-01-2021 Patient encounter procedure 07/01/2021 Office Visit Gynecologic Oncology Kin Abarca MD [address] [facility] [address] [place] [address] [phone] [facility] Gynecologic Oncology Services Start: 05-12-2021 Influenza vaccination Flu vaccine (# 1) [facility] Work Phone: Start: 04-05-2021 COVID-19 Vaccine (3 - Booster for Moderna series) COVID-19 Vaccine (3 - Booster for Moderna series) [facility] Start: 10-29-2020 Hemoglobin A1c/Hemoglobin.total in Blood HBA1C [facility] Start: 01-19-2018 Pneumococcal Vaccine : 65+ (2 - PCV) Pneumococcal Vaccine: 65+ (2 - PCV) [facility] Start: 01-19-2018 Pneumococcal Vaccine : 65+ Years (2 of 2 - PCV) Pneumococcal Vaccine: 65+ Years (2 of 2 - PCV) [facility] Start: 01-19-2018 PNEUMOCOCCAL: 65+ (2 - PCV) PNEUMOCOCCAL: 65+ (2 - PCV) [facility] Start: 2007 BONE DENSITY BONE DENSITY [facility] Start: 2007 Bone Density Screening Bone Density Screening [facility] Start: 2007 Pneumococcal 65+ yea rs Vaccine (1 - PCV) Pneumococcal 65+ years Vaccine (1 - PCV) [facility] Start: 2007 Pneumococcal 65+ yea rs Vaccine (1 of 1 - PPSV23) Pneumococcal 65+ years Vaccine (1 of 1 - PPSV23) [facility] Start: 2002 Hepatitis B Vaccine (1 of 3 - Risk 3-dose series) Hepatitis B Vaccine (1 of 3 - Risk 3-dose series) [facility] Start: 1997 Screening for osteoporosis DEXA (modify frequency per FRAX score) [facility] Start: 1992 Shingles Vaccine (1 of 2) Shingles Vaccine (1 of 2) [facility] Start: 1992 SHINGRIX VACCINE (1 of 2) SHINGRIX VACCINE (1 of 2) [facility] Start: 1961 DTaP/Tdap/Td vaccine (1 - Tdap) DTaP/Tdap/Td vaccine (1 - Tdap) [facility] Start: 1961 Urine microalbumin profile [facility] Start: 1960 ANNUAL PCP TEAM MANAGER GIFT USAMA DISEASE VISIT ANNUAL PCP TEAM CHRONIC DISEASE VISIT [facility] Start: 1960 BP CONTROLLED (<130/80) BP CON TROLLED (<130/80) [facility] Start: 1960 Hepatitis B surface antibody level LDL CHOLESTEROL [facility] Start: 1960 Hepatitis C screening Hepatitis C [facility] Start: 1954 Depression Screen Depression Screen [facility] Start: 1952 3 comp foot exam completed DIABETIC FOOT EXAM [facility] Start: 1952 Hepatitis B screening URINE ALBUMIN:CREATININE RATIO [facility] Start: 1952 Hepatitis C antibody , confirmatory test DILATED RETINAL EXAM [facility] Start: 1952 Lipid panel [facility] Start: 1942 Hepatitis C screening Hepatitis C [facility] EKG 12 Lead EKG 12 Lead ECG STAT 06/28/2022 7:29 AM EDT [facility] Phone: End: 12-13-2021 INITIATE PACU OXYGEN THERAPY PROTOCOL Initiate PACU Oxygen Therapy Protocol Respiratory Care Routine Continuous until discontinued starting 12/13/2021 [employer] Phone: Comment on above: Continuous until dis continued starting 12/13/2021 End: 06-28-2022 INITIATE PACU OXYGEN THERAPY PROTOCOL Initiate PACU Oxygen Therapy Protocol Respiratory Care Routine Continuous until discontinued starting 06/28/2022 [employer] Work Phone: Comment on above: Continuous until dis continued starting 06/28/2022 End: 07-19-2024 MAGNO DIAGNOSTIC BILATERAL MAGNO DIAGNOSTIC BILATERAL Radiology Routine 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, estrogen receptor positive (HCC) 1 Occurrences starting 06/20/2023 until 07/19/2024 [facility] Work Phone: Comment on above: 1 Occurrences starti ng 06/20/2023 until 07/19/2024 Patient referral [facility] Work Phone: Spirometry panel Incentive viktoriya metry Respiratory Care Routine Every 2hr while awake until discontinued starting 12/13/2021 [employer] Work Phone: Comment on above: Every 2hr while awak e until discontinued starting 12/13/2021 Surgical Pathology Surgical Path ology Lab Routine Release Upon Ordering for 1 Occurrences starting 06/15/2021 [employer] Phone: Comment on above: Release Upon Orderin g for 1 Occurrences starting 06/15/2021 Surgical Pathology Surgical Path ology Lab Routine Release Upon Ordering for 1 Occurrences starting 12/13/2021 [employer] Phone: Comment on above: Release Upon Orderin g for 1 Occurrences starting 12/13/2021 Surgical Pathology Surgical Path ology Lab Routine Vaginal dysplasia Release Upon Ordering for 1 Occurrences starting 06/28/2022 [employer] Phone: Comment on above: Release Upon Orderin g for 1 Occurrences starting 06/28/2022 End: 06-28-2022 SURGICAL PATHOLOGY REPORT SURGICAL PATHOLOGY REPORT Lab Routine Once for 1 Occurrences starting 06/28/2022 until 06/28/2022 [employer] Phone: Comment on above: Once for 1 Occurrenc es starting 06/28/2022 until 06/28/2022 End: 11-24-2022 SURGICAL PATHOLOGY REPORT SURGICAL PATHOLOGY REPORT Lab Routine Once for 1 Occurrences starting 11/24/2022 until 11/24/2022 [employer] Phone: Comment on above: Once for 1 Occurrenc es starting 11/24/2022 until 11/24/2022 [facility] Immunizations Immunization Date Immunization Notes Care Provider [facility] 07-12-2022 influenza virus vacc ine, unspecified formulation Iliana GAGNON [facility] 08-20-2021 SARS-CoV-2 (COVID-19 ) mRNA-1273 vaccine Iliana GAGNON [facility] 07-01-2021 influenza (HD-IIV4) vaccine, age 65+ yr, high dose, quadrivalent, PF (FLUZONE HIGH-DOSE) Wallace Stone MD Work Phone: [facility] 07-01-2021 influenza virus vacc ine, unspecified formulation Winnie Guzmán PA-C Work Phone: [facility] 11-06-2020 COVID-19, Moderna, P F, 100mcg/0.5mL Stv Xr [facility] 10-09-2020 COVID-19, Moderna, P F, 100mcg/0.5mL Stv Xr [facility] Work Phone: 06-10-2020 Seasonal trivalent influenza vaccine, adjuvanted, preservative free Wallace Stone MD Work Phone: [facility] 06-07-2017 influenza, high dose seasonal, preservative-free Wallace Stone MD Work Phone: [facility] 01-19-2017 pneumococcal polysaccharide vaccine, 23 valent Wallace Stone MD Work Phone: [facility] 06-29-2015 influenza, high dose seasonal, preservative-free Wallace Stone MD Work Phone: [facility] 06-23-2014 influenza, high dose seasonal, preservative-free Wallace Stone MD Work Phone: [facility] 06-15-2010 pneumococcal polysaccharide vaccine, 23 valent Wallace Stone MD Work Phone: [facility] 06-27-2007 influenza virus vacc ine, whole virus Wallace Stone MD Work Phone: [facility] Payers Date Payer Category Payer Self-pay [id number] 2007 Medicare [id number] 5 2007 Unknown [id number] [id number] 5 2007 Unknown [id number] 1.2.840.546868.1.13.239.2.7.3.956402.31 5 1959 Medicare [id number] [id number].31 5 1959 Self-pay [id number] 1959 Unknown [id number] 2.16.8 40.1.217896.19 1942 Unknown [id number] 2.16.84 0.1.584337.3.579.2.593 1942 Unknown [id number] 2.16.84 0.1.848140.3.579.2.593 1942 Unknown [id number] 2.16.84 0.1.618870.3.579.2.593 1942 Unknown [id number] 2.16.84 0.1.655251.3.579.2.593 1942 Unknown [id number] 2.16.84 0.1.679173.3.579.2.593 1942 Unknown [id number] 2.16.84 0.1.781294.3.579.2.593 1942 Unknown [id number] 2.16.84 0.1.985437.3.579.2.593 1942 Unknown [id number] 2.16.84 0.1.540436.3.579.2.593 1942 Unknown [id number] 2.16.84 0.1.601377.3.579.2.593 1942 Unknown [id number] 2.16.84 0.1.728791.3.579.2.593 1942 Unknown [id number] 2.16.84 0.1.189852.3.579.2.593 1942 Unknown [id number] 2.16.84 0.1.871667.3.579.2.593 1942 Unknown [id number] 2.16.84 0.1.872530.3.579.2.593 1942 Unknown [id number] 2.16.84 0.1.999143.3.579.2.593 1942 Unknown [id number] 2.16.84 0.1.808560.3.579.2.593 1942 Unknown [id number] 2.16.84 0.1.139109.3.579.2.593 1942 Unknown [id number] 2.16.84 0.1.325457.3.579.2.593 1942 Unknown [id number] 2.16.84 0.1.288438.3.579.2.593 1942 Unknown [id number] 2.16.84 0.1.006766.3.579.2.593 1942 Unknown [id number] 2.16.84 0.1.899428.3.579.2.593 1942 Unknown [id number] 2.16.84 0.1.417065.3.579.2.593 1942 Unknown [id number] 2.16.84 0.1.430970.3.579.2.593 1942 Unknown [id number] 2.16.84 0.1.104443.3.579.2.593 1942 Unknown [id number] 2.16.84 0.1.773882.3.579.2.593 1942 Unknown [id number] 2.16.84 0.1.006630.3.579.2.593 1942 Unknown [id number] 2.16.84 0.1.646462.3.579.2.593 1942 Unknown [id number] 2.16.84 0.1.778975.3.579.2.593 1942 Unknown [id number] 2.16.8 40.1.527678.3.579.2.727 1942 Unknown [id number] 2.16.8 40.1.195584.3.579.2.727 1942 Unknown [id number] 2.16.8 40.1.119609.3.579.2.727 1942 Unknown [id number] 2.16.8 40.1.407018.3.579.2.727 1942 Unknown [id number] 2.16.8 40.1.839181.3.579.2.727 1942 Unknown [id number] 2.16.8 40.1.271523.3.579.2.727 1942 Unknown [id number] 2.16.8 40.1.464360.3.579.2.727 1942 Unknown [id number] 2.16. 840.1.192267.3.579.2.175 1942 Unknown [id number] 2.16. 840.1.616419.3.579.2.175 1942 Unknown [id number] 2.16. 840.1.042768.3.579.2.175 1942 Unknown [id number] 2.16.84 0.1.023744.3.579.2.1259 Medicare Medicare Outpatient [id number] Unknown [id number] 2.16.8 40.1.571185.3.579.2.531 Unknown [id number] 2.16.8 40.1.528893.3.579.2.531 Social History Date Type Detail Facility Start: 05-12-2021 End: 06-20-2024 Tobacco smoking status PRIS Former smoker [employer] Phone: Start: 09-11-1962 End: 06-28-2018 History of tobacco use Current smoker [employer] Start: 09-11-1962 End: 06-28-2018 History of tobacco use Cigarette Smoker [employer] Start: 05-12-2021 End: 06-20-2024 Tobacco use and exposure Never used [employer] Start: 05-12-2021 End: 11-24-2022 Alcohol intake Ex-drinker (finding) [employer] Phone: Start: 1940 Sex Assigned At Not on file [employer] Work Phone: Start: 11-26-2021 End: 06-24-2022 Exposure to SARS-CoV-2 (event) Not sure [employer] Start: 06-15-2021 End: 06-20-2024 Cigarettes smoked current (pack per day) - Reported [facility] History of tobacco use Passive smoker [employer] Phone: Tobacco smoking status Never [facility] Start: 02-14-2023 End: 06-20-2024 Sex Assigned At Female [facility] Start: 09-19-2022 End: 02-14-2023 Alcohol intake Current non-drinker of alcohol (finding) [facility] Start: 1940 Sex Assigned At Female F [facility] Tobacco smoking stat [facility] Tobacco smoking consumption unknown [facility] Start: 06-20-2024 Alcoholic beverage intake Lifetime non-drinker (finding) [facility] Medical Equipment Procedure Code Equipment Code [...] Facility 09-09-2022 Functional Status N/A [facility] Clinical Notes 05-12-2021 to 07-17-2024 Peyman Hensley, ZHANEM - 06/20/2024 9:40 AM EDT Note Date & Type Note Facility 07-17-2024 Note MD Cardiology - [facility] Subjective Harman Mcleod is a 83 y.o. year old female patient being seen for S/P PACEMAKER (HERE FOR A WOUND CHECK TODAY), Atrial Fibrillation (CHADSVASC score of 7 ), Coronary Artery Disease, Hypertension, and Edema (LEGS AND FEET ARE SWOLLEN TODAY, PT WANTS TO KNOW IF SHOULD GO BACK ON LASIX DAILY) Patient Active Problem List Diagnosis Angina pectoris (CMS/HCC) Atherosclerosis of capitan grande coronary artery of cap[place] grande heart without angina pectoris Dyslipidemia Dyspnea Gastroesophageal [...] Varicose veins of both legs with edema Longstanding persistent atrial fibrillation (CMS/HCC) Acute combined systolic and diastolic heart failure (CMS/HCC) HPI Patient is here today for follow-up visit after she underwent BiV ICD implant by Dr. Kern on 07/10/2024. She was here initially for a incision check however she reports that she has been having creased legs edema and weight gain of about 4 to 5 pounds since her Lasix was reduced to every other day. The patient denies any chest pain or shortness of breath or palpitations. However when we checked her pulse it was fast at 102 bpm on EKG. Patient was not sure of the dose of metoprolol she is taking at home. She is still off anticoagulation although it was recommended to go back on it 5 days after the procedure but the patient is under the impression that she should stay off of it because she is supposed to go back for AV shad ablation. I called Dr. Kern who reported that he is planning to do AV shad ablation because the patient is probably not a candidate for long-term anticoagulation therefore there was no place for atrial fibrillation ablation but he is okay with restarting her on Eliquis and see how she does. ROS All systems were reviewed and they were negative except for the positive findings noted above in the history Past Medical History: Diagnosis Date Abnormal ECG Arrhythmia Atrial fibrillation (CMS/HCC) CAD (coronary artery disease) Cancer (CMS/HCC) CHF (congestive heart failure) (CMS/HCC) Chronic kidney disease COPD (chronic obstructive pulmonary disease) (CMS/HCC) Diabetes mellitus (CMS/HCC) GI bleed Heart murmur Hyperlipidemia Hypertension PVD (peripheral vascular disease) (CMS/HCC) Past Surgical History: Procedure Laterality Date CARDIAC CATHETERIZATION 12/15/2011, 08/23/2010, 12/30/2004, CORONARY STENT PLACEMENT HYSTERECTOMY 03/11/2005 VASCULAR SURGERY Family History Problem Relation Name Age of Onset Stroke Mother Coronary artery disease Father Heart attack Father Social History Tobacco Use Smoking status: Former Types: Cigarettes Smokeless tobacco: Never Substance Use Topics Alcohol use: Not Currently Allergies Allergies Allergen Reactions Ciprofloxacin Hives and Other Other reaction(s): Other: See Comments tendon issues tendon issues Cefdinir Other Tramadol Other Oxycodone Rash Rash & GI upset Oxycodone-Acetaminophen Other GI upset & rash Medications Current Outpatient Medications: doxycycline (Vibramycin) 100 mg capsule, Take 1 capsule (100 mg) by mouth two times daily for 14 days. Take with at least 8 ounces (large glass) of water, do not lie down for 30 minutes after, Disp: 28 capsule, Rfl: 0 [START ON 07/24/2024] apixaban (Eliquis) 2.5 mg tablet, Take 1 tablet (2.5 mg) by mouth two times daily. Do not start before July 24, 2024. (Patient not taking: Reported on 07/17/2024 Do not start before July 24, 2024.), Disp: 60 tablet, Rfl: 1 Objective Visit Vitals BP 130/62 (BP Location: Left arm, Patient Position: Sitting) Pulse 102 Ht 1.549 m (5' 1 (more content not included)... [facility] 07-10-2024 Note GLOBAL TECHNICAL WRITER-D IMPLANT PROCED URE NOTE DATE OF PROCEDURE: 07/10/2024 PERFORMING PHYSICIAN: Dr. Brian Kern PROJECT ADMIN: SAVAGE CONSENT: Patient LOCATION: [facility] PROCEDURE PERFORMED: 1. Implantation of Biventricular ICD ([employer]) 2. U/S venous access 3. Coronary sinus venogram 4. Conscious sedation 5. Fluroscopy INDICATIONS: Ischemic cardiomyopathy LBBB Chronic Afib with RVR PROCEDURAL SEDATION: Versed and Fentanyl. Moderate sedation was administered by the sedation nurse under my supervision and noted in the CVL log. Intraprocedural face to face sedation time: 105min. Monitoring: Cardiac telemetry, Blood pressure, continuous pulse oxymetry. FLUROSCOPY: 17.9min/ 399mGy. EBL: 25cc SPECIMEN REMOVED: None INDICATION: 83year old with past medical history of CAD [...] to be in A-fib. [facility] Eliquis and aspirin [...] no symptoms. Denies chest pain, SOB, dizziness/lightheadedness. Decision was made to proceed with GLOBAL TECHNICAL WRITER-D device and an AVN ablation. PROCEDURAL DETAILS: Patient was brought to the EP lab in the post absorptive state. A procedural pause was performed identifying the patient, the precedure to be performed and the site of implant. The left chest was prepped and draped in the usual sterile fashion. Preoperative antibiotics IV was administered. Patient was placed in trendelenberg position and ultrasound was used to evaluate the patency of left axillary vein. Left axillary venous access was obtained on 2 occasions using seldinger technique using a 5 Somali micropunture needle and exchanged for 0.034 wire. I decided to proceed with opening of the pocket. Localinfiltration of 1% Lidocaine was performed and an incision was created in the left upper chest. Dissection was then performed using cautery down. An active fixation [employer] ICD lead was then delivered through the 8F sheath to the right ventricle. After confirmation of lead position on orthogonal views (JAIMES and JULIANNE) to confirm position in the septal aspect, the screw was activated. After confirmation of good sensing parameters, injury pattern and pacing thresholds, 10V pacing was done and no diaphragmatic stimulation was noted. It was then secured in the pocket using three 1-0 Silk sutures. I then proceeded to perform the LV lead placement. A Mara sheath was advanced into the RV over the wire. The dilator was then adjusted and guide wire advanced into the CS body. Dilator was removed and inner cannula placed and I utilized an Amplatz aire for stability. The sheath was advanced into the CS. Thereafter, coronary sinus venogram was performed using a Swanz-Tammy catheter, which revealed a nice postero-lateral branch where the catheter was seated. There was a CS dissection noted but no hemodynamic change. I decided to target the postero-lateral branch that was fairly good size. [place]-Tammy catheter was then taken out and a 90degree inner cannula was advanced into the CS. The amplatz wire was removed and then a0.24 wire was used as a emily wire. I then used a whisper wire and this tracked into the posterolateral vein. [employer] S shaped lead was advanced over 0.014 wire into the lateral border. Once the guiding sheaths were removed, the lead was secured in the pocket using three 0- Silk sutures.The leads were then attached to a [employer] GLOBAL TECHNICAL WRITER-D device and the leads tug tested and atrial port capped. Pocket hemostasis was secured and it was then copiously and vigorously irrigated with antiobiotic solution. The leads were wrapped under the device and the device was placed in the pocket and the device tacked to the underlying capsule as well as muscle. The muscle was approximated with silk ties. The pocket was closed in layers: subcutaneous layer using 2-0 Vicryl and skin using 3-0 Monocryl. Occlusive dressing was placed o (more content not included)... [facility] 07-10-2024 Note Patient: Harman rubio Procedure Information Date/Time: 07/10/24 1200 Procedure: Implant ICD - biventricular - PC APPROVED [employer] Location: [facility] / [facility] HV VASCULAR LAB (Cath) Providers: Brian Kern MD Clinical information reviewed: Allergies Meds Physical Exam Airway Mallampati: II TM distance: >3 FB Cardiovascular Dental Pulmonary Abdominal Anesthesia Plan ASA 3 CSE Anesthetic plan and risks discussed with patient. Use of blood products discussed with patient who. Additional Equipment Requests [facility] 07-10-2024 Note Betadine nasal swabs completed. Pt did CHG wipes last night. Pt stated that the wipes made her break out. Pt does not want to use the wipes again preprocedure. [facility] 07-02-2024 Note MD Electrophysiology Consult Note MD Cardiology - [facility] Reason for visit: Afib HPI: Harman [...] in A-fib. She was just discharged from [facility] for GI bleed. Eliquis and aspirin [...] (chronic obstructive pulmonary disease) (CMS/HCC) Diabetes mellitus (CMS/HCC) GI bleed Heart murmur Hyperlipidemia Hypertension PVD (peripheral vascular disease) (CMS/HCC) PSH: Past Surgical History: Procedure Laterality Date [...] on file Intimate Partner Violence: Unknown (11/02/2023) MD Safety & Environment Fear of Current or [...] mouth two times daily. fish oil concentrate ([place]-3) 120-180 mg capsule Take 1,000 mg by [...] mouth at bedti (more content not included)... [facility] 06-20-2024 History of Present illness Narrative Patient: [...] states she has had a left anterior rbaun wound for the past 2 months after hitting object. Currently [facility] every 3 weeks with application [...] Partner Violence: Unknown (11/02/2023) [facility] [place] Safety & Environment Fear of [...] and negative PT pedal pulses NEURO: 5.07 [place] Sybil monofilament test intact to digits and forefoot bilaterally 125Hz tuning fork diminished to 1st MPJ bilaterally ORTHO: Positive pain on palpation to nails 1 through 10 Positive pain palpation left anterior braun ASSESSMENT 1. Venous insufficiency 2. Hav (hallux abducto valgus), left 3. Acquired deformity of left toe 4. 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 Diabetes mellitus due to underlying condition with diabetic polyneuropathy, 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 alf insulin use ([facility]) 6. Pain due to onychomycosis of toenails [...] DSD applied . Patient currently has the [facility] wound center applying Medihoney every other day. Did discuss possibility if no improvement to contact Podiatry for advanced wound care treatments or if any signs of infection Peyman Hensley DPM documented in this encounter [facility] 06-12-2024 Note MD Cardiology - [facility] Subjective Harman Mcleod is a 83 y.o. year old female patient being seen for follow up echo performed on 06/04/2024. Denies chest pain, SOB, and palpitations. Feels good but is tired today. BP at home was 107/71 today and yesterday 114/55. Patient Active Problem List Diagnosis Angina pectoris (CMS/HCC) Atherosclerosis of [place] grande coronary artery of [place] heart without angina pectoris Dyslipidemia Dyspnea Gastroesophageal [...] concerns [facility] 05-27-[address] [facility] 05-27-2024 Note [id number]= 6-7 at least with Age, Sex, CHF, [...] ivanemily todd is stable without worsening symptoms [facility] II -currently patient is euvolemic without exacerbation. She has returned home from [facility] and presents today with granddaughter who [...] continue all medications. [facility] 05-27-2024 Note Pt is here for a one year follow up. Pt denies chest pain, palpatations, sob. Review of Systems All other systems reviewed and are negative. [facility] 05-27-2024 Note [facility] CARDIOLOGY PROGR [...] fluid overload-of which she was [facility] to [facility] until this past December. She has [...] systems reviewed and are negative Admit to [facility] 02/13/24 DC Summary DS: Summary Hospital [...] 81 mg by mouth. fish oil concentrate ([place]-3) 120-180 mg capsule Take 1,000 mg by [...] tabl (more content not included)... [facility] 04-10-2024 Progress note Note Date/Time April 10, 2024 10:30am [facility] [address] [place] [address] Wound Center Provider Note Signed Patient: Harman Mcleod MR#: [id number] : 1940 Acct:[id number] Age/Sex: 83 / F Copies to: MD Janell Oliver APRN~ HPI Date of Visit Date of Visit: Date of Service: 04/10/2024 Time of Service: 10:26 Narrative HPI: 12/11/23 Harman is an 83 year old presenting to [facility] wound care for an initial [...] present for the entire visit, she has [facility], the left leg will be treated with [...] wrapped again today for good measure and [facility] can remove next week and start stockings or wraps if something is open on the legs, family and friend present for the visit, does not need to return to the office unless new ulcers do develop, spoke about her getting established with a rehabilitation case coordinator and so hopefully she will follow through [...] to go to the ED per the [facility] nurse but she had refused this [...] bilateral lower leg ulcers Mode of Arrival/ Service Transformer Repair Supervisor: Friend Assistive Device Used Today: Walker Lives with:: Significant Other Appetite Description: Within Normal Limits Who helps w/ dressing change?: Home Health Why Do You Need Help?: Can't Reach Ulcer, Limited mobility, Unsafe leave home byself and Taxing effort to leave home Smoking Status: Former smoker [facility] Medical History (Updated 04/10/24 @ [...] List clean-up per request of Phys. [facility]HR [facility] Family History (Updated 06/01/23 @ [...] DAILY 04/25/19 [History Confirmed 12/11/23] omega-3s 300 lr-fvb-mxi-other howtf0v-fddz oil 1,000 mg capsule (Mary[place]-3 Fish Oil) 2 cap PO BID 04/25/19 [...] Stasis Ulcer Thickness: Skin Breakdown Bed Appearance: Rochelle Percent of Wound Bed Granulated/Red: 100 Percent [...] <Electronically signed by FERNY Mathews> 04/10/24 10[address] [facility] Work Phone: 1(162) 881-462807-16-2024 Progress note Author Janell Mathews [facility] March 26, 2024 9:51am Note Date/Time March 26, 2024 9:51 am [facility] [address] [place] [address] Wound Center Provider Note Signed Patient: Harman Mcleod MR#: [id number] : 1940 Acct:[id number] Age/Sex: 83 / F Copies to: MD Janell Oliver APRN~ HPI Date of Visit Date of Visit: Date of Service: 03/26/2024 Time of Service: 09:47 Narrative HPI: 12/11/23 Harman is an 83 year old presenting to [facility] wound care for an initial [...] the entire visit, [facility], the left leg will be treated [...] wrapped again today for good measure and [facility] can remove next week and start stockings or wraps if something is open on the legs, family and friend present for the visit, does not need to return to the office unless new ulcers do develop, spoke about her getting established with a rehabilitation case coordinator and so hopefully she will follow through [...] to go to the ED per the [facility] nurse but she had refused this [...] bilateral lower leg ulcers Mode of Arrival/ Service Transformer Repair Supervisor: Friend Assistive Device Used Today: Walker Lives with:: Significant Other Appetite Description: Within Normal Limits Who helps w/ dressing change?: Home Health Why Do You Need Help?: Can't Reach Ulcer, Limited mobility, Unsafe leave home byself and Taxing effort to leave home Smoking Status: Former smoker [facility] Medical History (Updated 02/13/24 @ [...] List clean-up per request of Phys. EHR [facility] Surgical History History of bladder suspension procedure Problem List clean-up per request of Phys. EHR Cmte H/O: hysterectomy Problem List clean-up per request of Phys. EHR Cmte History of appendectomy Problem List clean-up per request of Phys. EHR Cmte History of heart artery stent Problem List clean-up per request of Phys. ANGELIA Chou Family History (Updated 06/01/23 @ 08:45 by [...] DAILY 04/25/19 [History Confirmed 12/11/23] omega-3s 300 cf-gsz-fek-other omtks1r-joei oil 1,000 mg capsule ([place]-3 Fish Oil) 2 cap PO BID 04/25/19 [...] Breakdown Bed Appearance: Epithelial Tissue or Bridge, Rochelle and Yellow Percent of Wound Bed Granulated/Red: [...] <Electronically signed by FERNY Mathews> 03/26/24 0[facility] Work Phone: 1(587) 470-223806-04-2024 Progress note Author Janell Mathews [facility] February 13, 2024 10:55am Note Date/Time February 13, 2024 10:55 am [facility] [address] [place] [address] Wound Center Provider Note Signed Patient: Harman Mcleod MR#: [id number] : 1940 Acct:[id number] Age/Sex: 83 / F Copies to: MD Janell Oliver, AUTOMOBILE DESIGNER~ HPI Date of Visit Date of Visit: Date of Service: 02/13/2024 Time of Service: 10:47 Narrative HPI: 12/11/23 Harman is an 83 year old presenting to [facility] wound care for an initial [...] present for the entire visit, she has [facility], the left [...] wrapped again today for good measure and [facility] can remove next week and start stockings or wraps if something is open on the legs, family and friend present for the visit, does not need to return to the office unless new ulcers do develop, spoke about her getting established with a rehabilitation case coordinator and so hopefully she will follow through [...] to go to the ED per the [facility] nurse but she had refused this and wanted to come to this appt instead Subjective Pain Left Leg: Pain Description: Intermittent Pain Intensity: 0 Wound/Ulcer History When did wound start?: August 2023 bilateral lower leg ulcers Mode of Arrival/ Service Transformer Repair Supervisor: Friend Assistive Device Used Today: Walker Lives with:: Significant Other Appetite Description: Within Normal Limits Who helps w/ dressing change?: Home Health Why Do You Need Help?: Can't Reach Ulcer, Limited mobility, Unsafe leave home byself and Taxing effort to leave home Smoking Status: Former smoker [facility] Medical History (Updated 02/13/24 @ [...] List clean-up per request of Phys. EHR [facility] Surgical History History of bladder suspension procedure Problem List clean-up per request of Phys. EHR Cmte H/O: hysterectomy Problem List clean-up per request of Phys. EHR Cmte History of appendectomy Problem List clean-up per request of Phys. EHR Cmte History of heart artery stent Problem List clean-up per request of Phys. EHR [facility] Family History (Updated 06/01/23 @ [...] DAILY 04/25/19 [History Confirmed 12/11/23] omega-3s 300 nl-fgz-fmi-other ivzmk7i-pggc oil 1,000 mg capsule (Maryville-3 Fish Oil) 2 cap PO BID 04/25/19 [...] Posterior Thigh: Bed Appearance: Beefy Red and Rochelle Percent of Wound Bed Granulated/Red: 0 Percent [...] 15 Dictated By: Janell Mathews APRN DD/ 46 Signed By: <Electronically signed by FERNY Mathews> 02/13/241054 [facility] Work Phone: 1(554) 929-554505-21-2024 Progress note Author Janell Mathews [facility] January 30, 2024 10:44am Note Date/Time January 30, 2024 10:44 am [facility] [address] [place] [address] Wound Center Provider Note Signed Patient: Harman Mcleod MR#: [id number] : 1940 Acct:[id number] Age/Sex: 83 / F Copies to: MD Janell Oliver, AUTOMOBILE DESIGNER~ HPI Date of Visit Date of Visit: Date of Service: 01/30/2024 Time of Service: 10:37 Narrative HPI: 12/11/23 Harman is an 83 year old presenting to [facility] wound care for an initial [...] present for the entire visit, she has [facility], the left [...] wrapped again today for good measure and [facility] can remove next week and start stockings or wraps if something is open on the legs, family and friend present for the visit, does not need to return to the office unless new ulcers do develop, spoke about her getting established with a rehabilitation case coordinator and so hopefully she will follow through [...] bilateral lower leg ulcers Mode of Arrival/ Service Transformer Repair Supervisor: Friend Assistive Device Used Today: Walker Lives with:: Significant Other Appetite Description: Within Normal Limits Who helps w/ dressing change?: Home Health Why Do You Need Help?: Can't Reach Ulcer, Limited mobility, Unsafe leave home byself and Taxing effort to leave home Smoking Status: Former smoker [facility] Medical History (Updated 01/30/24 @ [...] DAILY 04/25/19 [History Confirmed 12/11/23] omega-3s 300 zf-vch-dts-other xohxm6q-rfbb oil 1,000 mg capsule ([place]-3 Fish Oil) 2 cap PO BID 04/25/19 [...] Posterior Thigh: Bed Appearance: Beefy Red and Rochelle Percent of Wound Bed Granulated/Red: 100 Percent [...] <Electronically signed by FERNY Mathews> 01/30/24 [address] [facility] Work Phone: 1(500) 967-786004-18-2024 Progress note Author Janell Mathews [facility] December 28, 2023 11:22am Note Date/Time December 28, 2023 11: 22am [facility] [address] [place] [address] Wound Center Provider Note Signed Patient: Harman Mcleod MR#: [id number] : 1940 Acct:[id number] Age/Sex: 83 / F Copies to: MD Janell Oliver, FERNY~ HPI Date of Visit Date of Visit: Date of Service: 12/28/2023 Time of Service: 11:19 Narrative HPI: 12/11/23 Harman is an 83 year old presenting to [facility] wound care for an initial [...] present for the entire visit, she has [facility], the left [...] spoke about her getting established with a rehabilitation case coordinator and so hopefully she will follow through on that, spoke about compression socks too forlong term use Subjective Pain Left Leg: Pain Intensity: 0 Wound/Ulcer History When did wound start?: August 2023 bilateral lower leg ulcers Mode of Arrival/ Service Transformer Repair Supervisor: Friend Assistive Device Used Today: Walker Lives with:: Significant Other Appetite Description: Within Normal Limits Who helps w/ dressing change?: Home Health Why Do You Need Help?: Can't Reach Ulcer, Limited mobility, Unsafe leave home byself and Taxing effort to leave home Smoking Status: Former smoker [facility] Medical History (Updated 12/11/23 @ [...] List clean-up per request of Phys. EHR [facility] Surgical History History of bladder suspension procedure Problem List clean-up per request of Phys. EHR Cmte H/O: hysterectomy Problem List clean-up per request of Phys. EHR Cmte History of appendectomy Problem List clean-up per request of Phys. EHR [facility] History of heart artery stent Problem List clean-up per request of Phys. EHR [facility] Family History (Updated 06/01/23 @ [...] DAILY 04/25/19 [History Confirmed 12/11/23] omega-3s 300 ja-boz-thu-other hoxal4h-enaz oil 1,000 mg capsule (Maryville-3 Fish Oil) 2 cap PO BID 04/25/19 [...] 15 Dictated By: Janell Mathews APRN DD/ 111 Signed By: <Electronically signed by FERNY Mathews> 12/28/23 112[address] [facility] Work Phone: 1(801) 278-793104-01-2024 Progress note Author Janell Mathews [facility] December 11, 2023 9:35am Note Date/Time December 11, 2023 9:35 am [facility] [address] [place] [address] Wound Center Provider Note Signed Patient: Harman Mcleod MR#: [id number] : 1940 Acct:[id number] Age/Sex: 83 / F Copies to: MD Janell Oliver APRN~ HPI Date of Visit Date of Visit: Date of Service: 12/11/2023 Time of Service: 09:27 Narrative HPI: 12/11/23 Harman is an 83 year old presenting to [facility] wound care for an initial [...] present for the entire visit, she has [facility], the left leg will be treated with [...] bilateral lower leg ulcers Mode of Arrival/ Service Transformer Repair Supervisor: Friend Assistive Device Used Today: Walker Lives with:: Significant Other Appetite Description: Within Normal Limits Who helps w/ dressing change?: Home Health Why Do You Need Help?: Can't Reach Ulcer, Limited mobility, Unsafe leave home byself and Taxing effort to leave home Smoking Status: Former smoker [facility] Medical History (Updated 12/11/23 @ 09:30 by Janell Mathews APRN) Leg ulcer, left Cataract Problem List clean-up per request of Phys. 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 EHR [facility] Vaginal lesion Problem List clean-up per request of Phys. EHR Cmte PAD (peripheral artery disease) Problem List clean-up per request of Phys. EHR Cmte CAD (coronary artery disease) Problem List clean-up per request of Phys. EHR Cmte Dyslipidemia Problem List clean-up per request of Phys. EHR Cmte Hyperthyroidism Problem List clean-up per request of Phys. EHR [facility] Diabetes mellitus Problem List clean-up per request of Phys. EHR Cmte Hypertension Problem List clean-up per request of Phys. EHR [facility] Surgical History History of bladder suspension procedure Problem List clean-up per request of Phys. EHR [facility] H/O: hysterectomy Problem List clean-up per request of Phys. EHR [facility] History of appendectomy Problem List clean-up per request of Phys. EHR [facility] History of heart artery stent Problem List clean-up per request of Phys. EHR [facility] Family History (Updated 06/01/23 @ [...] DAILY 04/25/19 [History Confirmed 12/11/23] omega-3s 300 kb-zcy-zja-other wcdbw4d-hass oil 1,000 mg capsule ([place]-3 Fish Oil) 2 cap PO BID 04/25/19 [...] Breakdown Bed Appearance: Epithelial Tissue or Bridge, Rochelle and Yellow Percent of Wound Bed Granulated/Red: [...] By: <Electronically signed by FERNY Mathews> 12/11/23934 [facility] Work Phone: 1(182) 681-144410-10-2023 NoteHNO ID: [id number] Author: Winnie Guzmán PA-C Service: ? Author Type: Physician Sleeve Separator Type: Progress Notes Filed: 06/20/2023 3:58 PM Note Text: [id number] ATTENDING PHYSICIAN: Wallace Stone MD DATE OF [...] Negative LVI, 2 SNL negative, ER and DE >95% positive, Her2 IHC 1+ Treatment History: [...] 6.4 10/24/2017 7.3 Al (more content not included)...[facility]10-10-2023 Nurse Note * Lina Lopes MA - 06/20/2023 2:49 PM EDT Patient would like to know if she needs a mammogram? She was told in Oct that she would need one in6 months. Lina Lopes MA documented in this encounterChildren'S [facility]10-10-2023 History of Present illness Narrative* Winnie Guzmán PA-C - 06/20/2023 2:30 PM EDT Images from the original note were not included. PATIENT NAME: Harman Mcleod CLINIC NO.: [id number] ATTENDING PHYSICIAN: Wallace Stone MD DATE OF [...] Negative LVI, 2 SNL negative, ER and DE >95% positive, Her2 IHC 1+ Treatment History: [...] Range Status 06/20/2023 4.8 % Final Abs [place] Date Value Ref Range Status 06/20/2023 0.49 [...] follow up. R Breast T1b,N0,M0- ER and DE >95% positive and Her-2 IHC 1+ tumor post Lumpectomy and SNL 10/2022. Reviewed path and she elected not to proceed with XRT and started Arimidex in 11/2022. Continues to tolerate well. Mammogram in 07/2023 (order placed). See us in 4 months. Plan is for 5 years of AI therapy Osteoporosis- On Prolia started 08/[address] Perry Vulvar high grade dysplasia- Follows Dietary Director Onc at [place] [facility] R Leg swelling and pain and h/o PVD- Follows vascular HTN--managed by PCP Winnie Guzmán PA-C CC: MD Mateus Spicer MD documented in this encounterChildren'S Hospital [facility]09-21-2023 Evaluation note* Encounter Date Diagnosis Assessment Notes [...] In addition I took her to the [facility] and performed a right iliac venogram which [...] offer her a second opinion at the [facility] vascular medicine program. She declined. I will see her as needed in the future. [facility] Other 06-29-2023 Evaluation note* Encounter Date Diagnosis [...] to call us with any concerns whatsoever. [facility] Other 06-06-2023 NoteHNO ID: [id number] Author: Wallace Stone MD Service: ? Author Type: Physician Type: Progress Notes Filed: 02/14/2023 10:49 AM Note Text: PATIENT NAME: Harman Mcleod CLINIC NO.: [id number] ATTENDING PHYSICIAN: Wallace Stone MD DATE OF [...] Negative LVI, 2 SNL negative, ER and DE >95% positive, Her2 IHC 1+ Treatment History: [...] 04/28/2020 1.12 BUN (mg/dL) (more content not included)...[facility]06-06[facility] History of Present illness Narrative* Wallace Stone MD - 02/14/2023 10:37 AM EDT Images from the original note were not included. PATIENT NAME: Harman Mcleod CLINIC NO.: [id number] ATTENDING PHYSICIAN: Wallace Stone MD DATE OF [...] Negative LVI, 2 SNL negative, ER and DE >95% positive, Her2 IHC 1+ Treatment History: [...] Range Status 02/14/2023 8.3 % Final Abs [place] Date Value Ref Range Status 02/14/2023 0.86 [...] follow up. R Breast T1b,N0,M0- ER and DE >95% positive and Her-2 IHC 1+ tumor post Lumpectomy and SNL 10/2022. Reviewed path and she elected not to proceed with XRT and started Arimidex in 11/2022 and toleraing well. Plan for 5 years of therapy. Osteoporosis- On Prolia started 08/[address] Perry Vulvar high grade dysplasia- Follows Dietary Director Onc at [place] [facility] R Leg swelling and pain and h/o PVD- Follows vascular HTN Rash- refer to Derm Thank you for the kind referral. If there are any questions and or concerns please do not hesitate to contact me at [phone]. Wallace Stone MD Hematology/Medical Oncology [facility] I spent a total of 30 minutes on the date of the service which included preparing to see the patient, [id number]-[id number] patient care, completing clinical documentation, obtaining and/or reviewing separately obtained history, performing a medically appropriate examination, counseling and educating the pat ient/family/caregiver, and ordering medications, tests, or procedures. CC: MD Mateus Spicer MD documented in this encounterChildren'S Hospital [facility]03-29-2023 Evaluation note* Encounter Date Diagnosis Assessment Notes [...] primary care provider as well as her forging engineer. We will continue to follow her along and see her again in a couple of months and see how she is doing with her pumps, conservative efforts, and weight management. She knows to call us in the meantime with any other additional concerns or complaints. [facility]-21-20[facility]* Encounter Date Diagnosis Assessment [...] specified soft tissue disorders (ICD-10 - M79.89) [facility] Other 03-08-2023 Miscellaneous Notes* Telephone Encounter - Adriana Pereira Pss - 11/16/2022 8:40 AM EST Called Vascular office spoke with Jessy. They have received this referral and have patient scheduledwith Dr Gonzales on 11/23 @ 10:00. Adriana Pereira Pss * Telephone Encounter - Kira Ko [facility] - 11/10/2022 9:38 AM EST Records faxed. * Telephone Encounter - Adriana Roth Pss - 11/10/2022 8:46 AM EST Janeth: Information ready for you. Adriana Periera Pss * Telephone Encounter - Carlos Brooks - 11/09/2022 2:44 PM EST Vascular Consult [facility] Previous patient of Dr. Mendez 3 years or more. Jaenth/Dudley: Can you please refer patient and follow up? Thanks! Carlos Brooks documented in this encounterChildren'S Hospital Of [facility]03-01-2023 NoteHNO ID: [id number] Author: Wallace Stone MD Service: ? Author Type: Physician Type: Progress Notes Filed: 11/09/2022 2:24 PM Note Text: PATIENT NAME: Harman Mcleod CLINIC NO.: [id number] ATTENDING PHYSICIAN: Wallace Stone MD DATE OF SERVICE: November 09, [address] Banks referring provider defined for this encounter. here is an update on a follow up visit on female Harman Mcleod at the clinic 11/09/2022 Diagnosis: T1b, N0, M0- R breast, Tumor 9 mm, Grade 2, Margins negative, Negative LVI, 2 SNL negative, ER and DE >95% positive, Her2 IHC 1+ Treatment History: [...] (mg/dL) Date Value 0 (more content not included)...[facility]03-01-2023 History of Present illness Narrative* Wallace Stone MD - 11/09/2022 2:00 PM EST Images from the original note were not included. PATIENT NAME: Harman Mcleod CLINIC NO.: [id number] ATTENDING PHYSICIAN: Wallace Stone MD DATE OF SERVICE: November 09, [address] Banks referring provider defined for this encounter. here is an update on a follow up visit on female Harman Mcleod at the clinic 11/09/2022 Diagnosis: T1b, N0, M0- R breast, Tumor 9 mm, Grade 2, Margins negative, Negative LVI, 2 SNL negative, ER and DE >95% positive, Her2 IHC 1+ Treatment History: [...] follow up. R Breast T1b,N0,M0- ER and DE >95% positive and Her-2 IHC 1+ tumor post Lumpectomy and SNL 10/2022. Reviewed path and she may skip radiation and also discussed hormonal; therapy with an AI and she will start Arimidex. Discussed adverse events and she wishes to proceed. Osteoporosis- On Prolia started 08/[address] Hoy Vulvar high grade dysplasia- Follows Dietary Director Onc at [place] and next appointment 11/24/2022 [facility] R Leg swelling and pain and h/o PVD- refer to vascular HTN Thank you for the kind referral. If there are any questions and or concerns please do not hesitate to contact me at [phone]. Wallace Stone MD Hematology/Medical Oncology [facility] [place] spent a total of 30 minutes on the date of the service which included preparing to see the patient, [id number] patient care, completing clinical documentation, obtaining and/or reviewing separately obtained history, performing a medically appropriate examination, counseling and educating the pat ient/family/caregiver, and ordering medications, tests, or procedures. CC: MD Mateus Spicer MD documented in this encounterChildren'S [facility]02-08-2023 NoteOPERATIVE NOTE OPERATION DATE: 10/19/2022 PREOPERATIVE DIAGNOSIS: Right breast cancer. POSTOPERATIVE DIAGNOSIS: Right breast cancer. PROCEDURE: Needle localized right breast lumpectomy with sentinel lymph node biopsy. SURGEON: Iliana Gagnon M.D. ANESTHESIA: General laryngeal mask airway. COCONUT JELLY ROLLER: SADI Hammer ESTIMATED BLOOD LOSS: Less than [...] in good condition. CC: Mateus Perry M.D.[facility] [id number] NoteEXAMINATION: XR CHEST 2 V HISTORY: Pre-surgery [...] Electronically authenticated by: ALFONSO GEORGE Date: 2022-10-11 12:11[facility]01-13-2023 NoteHNO ID: [id number] Author: Marcin Shah MD Service: ? Author Type: Physician Type: Progress Notes Filed: 2022 6:06 AM Note Text: Radiation Oncology - New Patient/Consult Note PATIENT NAME: Harman Mcleod PATIENT REQUESTING PHYSICIAN: Dr. 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 PATIENT IDENTIFICATION: This patient was seen in the Department of Radiation Oncology at the [facility] with Marcin Shah MD. She was accompanied today by her family. Final recommendations will be communicated back to the requesting physician by way of the shared medical record, or letter to requesting physician via US mail. HISTORY OF PRESENT ILLNESS: Ms. Mcleod is an 82-year-old woman from [place], [place] who was discovered on screening mammogram from July 2022 to have an abnormality within the anterior upper outer quadrant of the right breast. This was confirmed on ultrasound and she underwent stereotactic biopsy on 08/19/2022 with pathology revealing intermediate grade IDC that was ER/DE positive HER2 negative. She has met with [...] acetaminophen (TYLENOL EXTRA STRENGTH (more content not included)...[facility]01-12-2023 History of Present illness Narrative* Marcin Shah MD - 09/22/2022 11:38 PM EST Images from the original note were not included. Radiation Oncology - New Patient/Consult Note PATIENT NAME: Harman Mcleod PATIENT Signed: Marcin Shah MD I spent a total of 60 minutes on the date of the service which included preparing to see the patient, kagb-ab-vhhx patient care, and counseling and educating the patient/family/caregiver. This document has been created with the use of voice recognition technology. It may contain inaccuracies, misspellings, inaccurate syntax or inappropriate word context that are a result of the inadequacies/shortcomings of said technology/software. documented in this encounterChildren[facility]S [facility]01-12-2023 NoteHNO ID: [id number] Author: Wallace Stone MD Service: ? Author Type: Physician Type: Progress Notes Filed: 09/22/2022 5:19 PM Note Text: PATIENT NAME: Harman Mcleod [facility] NO.: [id number] ATTENDING PHYSICIAN: Wallace Stone MD DATE OF [...] provisional grade 1 through 2, ER and DE greater than 95% positive, HER2/holden negative with an IHC score of 1+ and FISH negative at [facility]. This patient was subsequently referred to Dr. Iliana Gagnon for surgical consultation. Patient denies any previous history of abnormal mammograms and or breast biopsy. She has had a recent bone density in [place] and was diagnosed with osteoporosis and started on Prolia as well. Patient has a sister who was diagnosed with breast cancer at the age of 82 and her daughter diagnosed with breast cancer at the age of 37. She quit smoking approximately 4 years ago. 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 [...] mouth daily at bedtime. Cut in half Rzhes-8-ULI-EPA-Fish Oil 1,000 mg (120 mg-180 mg) cap [...] DM type 2 (diabetes mellitus, type 2) ([facility]) (more content not included)...[facility]01-12-2023 History of Present illness Narrative* Wallace Stone MD - 09/22/2022 5:10 PM EST Images from the original note were not included. PATIENT NAME: Harman Coronel [facility] NO.: [id number] ATTENDING PHYSICIAN: Wallace Stone MD DATE OF [...] provisional grade 1 through 2, ER and DE greater than 95% positive, HER2/holden negative with an IHC score of 1+ and FISH negative at [facility]. This patient was subsequently referred to Dr. Iliana Gagnon for surgical consultation. Patient denies any previous history of abnormal mammograms and or breast biopsy. She has had a recent bone density in [place] and was diagnosed with osteoporosis and started on Prolia as well. Patient has a sister who was diagnosed with breast cancer at the age of 82 and her daughter diagnosed with breast cancer at the age of 37. She quit smoking approximately 4 years ago. 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 [...] mouth daily at bedtime. Cut in half Rfmaa-3-LDI-EPA-Fish Oil 1,000 mg (120 mg-180 mg) cap [...] ductal carcinoma, provisional grade 1-2, ER and DE greater than 95% positive, HER2/holden negative with [...] me to participate in Mrs. Harman Mcleod [facility], ifthere are any questions or concerns please do not hesitate to contact me at the number below. Wallace Stone M.D. Hematology/Medical Oncology [facility] [phone] CC: MD Mateus Spicer MD I spent a total of 60 minutes on the date of the service which included preparing to see the patient, amci-wk-ifgo patient care, completing clinical documentation, obtaining and/or reviewing separately obtained history, performing a medically appropriate examination, counseling and educating the pat ient/family/caregiver, ordering medications, tests, or procedures, and communicating with other HCPs (not separately reported). documented in this encounterChildren'S Hospital Of [facility]01-12-2023 Miscellaneous Notes* Telephone Encounter - Lars Wilkerson [...] involved. Lars Wilkerson RN documented in this encounterChildren'S Hospital Of Columbus12-30-2022 NoteChief Complaint consultation for right breast cancer [...] biopsy that r evealed invasive ductal carcinoma, ER/DE +; Her2 holden negative; patient denies change [...] gms IV prior to OR SCDs [place] [facility] [place] [facility] [place] Referral 2. Chronic anticoagulation (Z79.01: 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) hold Eliquis 2 days prior to surgery, if ok with Cardiology. 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 Garza. documented [facility] [employer] Phone: 1(245) 773-320710-18-2022 Hospital Discharge instructions* Discharge Instructions* Brody Ken [...] urinate call your doctor documented in this encounterWHITINSV[facility]ITALSp[facility] Phone: 1(964) 327-202904-04-2022 History of Present illness Narrative* Brody Ken [...] Plunkett MD - 12/13/2021 2:12 PM EDT Dietary Director Oncology Attending Note Patient seen and evaluated [...] chart for or 12/13/21 documented in this encounterFabriQate Phone: 1(718) 677-250704-04-2022 Evaluation note* Diagnosis Vaginectomy w/ Cysto 12/13/21- Primary Other postprocedural status documented in this encounter [employer] Phone: [phone] Hospital Discharge instructions* Instructions* Brody Ken RN [...] of: May 19, 2021 Content Version: 13.2 [employer]. Care instructions adapted under license by [employer]. If you have questions about a medical condition or this instruction, always ask your healthcare professional. [employer] disclaims any warranty or liability for your [...] your doctor documented in this [facility] Phone: 1(140) 887-309003-28-2022 History of Present illness Narrative* YANA Wallis [...] Disease: Yes, stents x 3, Dr. Keyes ([facility]) Hypertension: yes Active smoker: Quit 2017, [...] pcp potassium 3.3,wbc 12.6 documented in this [facility] Phone: [phone] 319-203903-25-2022 Hospital Discharge instructions* Instructions* Yoanna Diaz PA [...] drive you home after your procedure. Your milk truck driver must be 18 years of age [...] questions, call the Pre-Admission Testing Unit at [phone]. Day of Surgery/Procedure As a patient at [facility] you can expect quality medical and nursing care that is centered on your individual needs. Our goal is to make your surgical experience as comfortableas possible . Directions to the Surgery Center [facility] is located at [address] [place] [address]. Please pull into the Emergency parking lot and stop at the refuse laborer richards. We offer free refuse laborer service for all our surgery patients, if you choose not to have refuse laborer parking we have additional parking across the street.You will enter the facility following the [facility] sign. Please stop at the lock operator desk where you will be checked in by the staff. If you have any questions please call [phone]. Transportation after your procedure. You will need a friend or family member to drive you home after your procedure. Your milk truck driver must be18 years of age or [...] You may shave your face or neck. Grubbs your teeth but do not swallow water. [...] or the day of surgery, please call [phone], or [phone] documented in this [facility] Phone: 1(661) 818-219010-05-2021 History of Present illness Narrative* Parvin Rogel RN - 06/15/2021 10:[address] Kamla gan, pt cleared for phase II * Alla Dickerson DO - 06/15/2021 9:42 AM EDT OB Resident Progress Note Patient may be discharged home once she has met criteria in the PACU. Please perfect serve or page RESPIRATORY SCIENTIST resident listed below with any questions, concerns, or if patient has not met PACU discharge criteria in 2-3 hours. . Please page first. Alla Dickerson DO RESPIRATORY SCIENTIST Resident PGY3 Pager: [phone] [facility] 06/15/2021, 9:42 AM documented in this [employer] Phone: [phone]) 664-303110-04-2021 Hospital Discharge instructions* Instructions* Alla Dickerson DO [...] cleared by your physician documented in this [employer] Phone: [phone]) 407-485709-01-2021 Hospital Discharge instructions* Instructions* Na Cabezas APRN - CNP - 05/12/2021 Pre-operative Instructions Please arrive at [...] public transportation ALONE is not acceptable. -Your milk truck driver must be 18 years of age [...] Day of Surgery/Procedure As a patient at [facility] you can expect quality medical and nursing care that is centered on your individual needs. Our goal is to make your surgical experience as comfortableas possible . Directions to the Surgery Center [facility] is located at [address] [place] [address]. Please pull into the Emergency/Surgery Center parking lot and stop at the refuse laborer richards. We offer free refuse laborer service for all our surgery patients, if you choose not to have refuse laborer parking we have additional parking across the [...] pharmacy bottles in a zip lock bag. Grubbs your teeth but do not swallow water. [...] DAY OF your surgery, you may call [phone] documented in this [facility] Phone: 1([phone]) 677-509509-01-2021 History of Present illness Narrative* Mandy Baker RN - 05/12/2021 1:30 PM EDT Medical clearance obtained for OR on 05/18/2021. * Na Cabezas APRN - TITLE INSURANCE EXAMINER - 05/12/2021 1:30 PM EDT Anesthesia Focused [...] Pedal edema Pneumonia PVD (peripheral vascular disease) (HCC) Thyroid disease Under care of team 05/12/2021 [facility] Under care of team 05/12/2021 [facility] Varicose vein of leg Patient was evaluated in [facility] & anesthesia guidelines were applied. NPO guidelines, medication instructions and scheduled arrival time were reviewed with patient. Anesthesia contacted: Yes I spoke with Dr. Rondon. Patient history and pertinent findings reviewed. Patient with history of CAD, CHF, stress test and cardiac echo (results not in Epic, from outside provider), cardiac stentx 3. Last saw forging engineer in December 2020. On Eliquis and aspirin prescribed from her forging engineer. Medical or cardiac clearance ordered: cardiac FERNY Andres CNP 05/12/21 2:43 PM documented in this encounterFabriQate Phone: evaluation + Plan noteGeneral Surgery [place] Evaluation + Plan note Future Appointments Appointment Date:11/08/2022 02:00:00 PM Scheduled Provider:Iliana GAGNON MD Location:[facility] Appointment Type:[place] [id number] General Surgery [place] Evaluation + Plan note Future Appointments Appointment Date:11/22/2022 01:40:00 PM Scheduled Provider:Iliana GAGNON MD Location:[facility] Appointment Type:[place] [id number] General Surgery [place] Evaluation note* Diagnosis Pre-op chest exam Pre-operative respiratory examination documented in this encounter [employer] Phone: evalpeecyb note* Diagnosis S/p Partial vaginectomy with Ultrasonic Scalpel 06/15/21- 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, 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 documented in this encounter [employer] Phone: evaluation note* Diagnosis Pre-op chest exam Pre-operative respiratory examination documented in this encounter [employer] Phone: evaligwmen note* Diagnosis Vaginal dysplasia Dysplasia of vagina S/p Vaginal and Vulvar Biopsies, CO2 laser vaporization of vaginal and vulvar lesions 06/28/22 Other postprocedural status 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, 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 documented in this encounter [facility] [employer] Phone: evaligdeps note* Diagnosis 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, estrogen receptor positive (HCC)- Primary documented in this encounter [facility]* Diagnosis 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 breast in female, estrogen receptor positive (HCC)- Primary [facility]* Diagnosis 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, estrogen receptor positive (HCC)- Primary Claudication in peripheral vascular disease (HCC) Peripheral vascular disease, unspecified documented in this encounter [facility] noteNo assessment information [facility] Work Phone: Evaluation noteNo InformationNort Link_[employer] 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, estrogen receptor positive (HCC)- Primary Rash Rash and other nonspecific skin eruption Other eczema Stage 3a chronic kidney disease (HCC) documented in this encounter [facility]* Diagnosis 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, estrogen receptor positive (HCC)- Primary Stage 3a chronic kidney disease (HCC) documented in this encounter [facility]* Diagnosis Onset Date Resolution Status Altered mental status acute Diabetes mellitus acute Edema of both lower legs acu te Inflammation acute Leg ulcer, left acute Leg wound, right acute Open wound of left thigh acu te Uses walker acute Varicose veins of both legs with edema [facility] Work Phone: Evaluation note* Diagnosis Onset Date Resolution Status Altered mental status acute Diabetes mellitus acute Edema of both lower legs acu te Inflammation acute Leg ulcer, left acute Leg wound, right acute Open wound of left thigh acu te PAD (peripheral artery disease) acute Uses walker acute Varicose veins of both legs with edema acute [facility] Work Phone: Evaluation note* Diagnosis Hav (hallux abducto valgus), left- Primary Venous insufficiency Unspecified venous (peripheral) insufficiency Acquired deformity of left toe 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 to underlying condition with diabetic polyneuropathy, 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 alf insulin use (CMS/HCC) Pain due to onychomycosis of toenails of [...] RENAL DSA'S, ANGIOPLAS TIES & STENTING 04-25-2019 [facility] Other History general Narrative - Reported* Type [...] History VAGINAL ABLASION OF CANCER CELL S [facility] Other Hospital course Narrative No data available for this section General Surgery [place] [facility] Discharge instructions No data available for this section General Surgery [place] Progress note No data available for this section General Surgery [place] Reason for referral (narrative) Referred by: Iliana GAGNON MD Referred by: Iliana GAGNON MD General Surgery [place] Remcgt for referral (narrative)* Diagnostic Procedure Only (Routine) - Pending Review Specialty Diagnoses / Procedures Referred By Jacinta fernandez Referred To Contact [facility] Diagnoses 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, estrogen receptor positive (HCC) Procedures MAGNO DIAGNOSTIC BILATERAL DIAGNOSTIC MAMMOGRAPHY COMPUTER-AIDED DETCJ Winnie Gongora PA-C [address] [place] [address] [place] [address] [facility] [address] [place] [address] Referral ID Status Reason Start Date Expiration Date Visits Requested Visits Authorized [id number] Pending Review Auto-Generat ed Referral 3 07/19/2024 1 1 [facility] for visit Narrative* Auth/Cert Specialty Diagnoses / Procedures Referred By Contac t Referred To Contact Diagnoses Vaginal dysplasia VAGINAL DYSPLASIA Procedures DE OFFICE/OUTPT VISIT,PROCEDURE ONLY DE COMPLETE REMOVAL OF VAGINA WALL DE CYSTOURETHROSCOPY CYSTOSCOPY, VAGINECTOMY Emma Garza MD [address] [place] [address] [employer] [address] [place] [address] Referral ID Status Reason Start Date Expiration Date Visits Re quested Visits Authorized [id number] 1 1 [employer] Phone: Summary Purpose Family History No Family History Records Found Relationship Condition Age at Onset Recorded Date/T josephine father Unknown mother Unknown Advance Directives No Advanced Directives Records FoundLatest Code Status on File Code Status Date Activated Date Inactivated Comments Full Code 06/28/2022 6:57 AM Documents on File Type Date Recorded 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 Advance Directive(s) 01/16/2017 3:59 PM Documents on File Type Date Recorded 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 Advance Directive(s) 01/16/2017 3:59 PM [...] [address] [place] [address] Specialty Diagnoses / Procedures Referred By Contac t Referred To Contact Cardiology Diagnoses Pre-op chest exam Procedures EKG 12 lead Latonia Burks PA-C [address] [place] [address] Referral ID Status Reason Start Date Expiration Date Visits Re quested Visits Authorized [id number] Open 11/22/2021 11/22/2022 1 1 Specialty Diagnoses / Procedures Referred By Contac t Referred To Contact Vascular Surgery Diagnoses Claudication in peripheral vascular disease (HCC) Procedures CONSULT TO VASCULAR SURGERY OFFICE/OUTPATIENT [facility] 60-74 MINUTES Wallace Stone MD [address] [place] [address] Referral ID Status Reason Start Date Expiration Date Visits Requested Visits Authorized [id number] Authorized PCP Requested Referral 11/16/2022 11/09/2023 1 1 Specialty Diagnoses / Procedures Referred By Contac t Referred To Contact Dermatology Diagnoses Rash Other eczema Procedures CONSULT TO DERMATOLOGY OFFICE/OUTPATIENT [facility] 60-74 MINUTES Wallace Stone MD [address] [place] [address] Referral ID Status Reason Start Date Expiration Date Visits Requested Visits Authorized [id number] Authorized PCP Requested Referral 02/14/2023 02/14/2024 1 [...] and content) DATE CREATED AUTHOR 02/05/2021 [facility] DATE CREATED AUTHOR AUTHOR'S ORGANIZ ATION 01/22/2023 [facility] DATE CREATED AUTHOR AUTHOR'S ORGANIZ ATION 06/22/2023 [facility] DATE CREATED AUTHOR AUTHOR'S ORGANIZ ATION 06/23/2023 Deluna Bamberg [facility] DATE CREATED AUTHOR AUTHOR'S ORGANIZ ATION 07/13/2023 [facility] DATE CREATED AUTHOR AUTHOR'S ORGANIZ ATION 05/03/2024 [facility] DATE CREATED AUTHOR AUTHOR'S ORGANIZ ATION 06/22/2024 [facility] EPIC DATE CREATED AUTHOR AUTHOR'S ORGANIZ ATION 07/17/2024 [facility] Reason for Visit (unrecogniz ed section and content) Status Reason Specialty Diagnoses / Procedures Re ferred By Contact Referred To Contact Diagnoses 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 Procedures DE REMOVE VAGINA WALL, PARTIAL DE COLPOSCOPY,CERVIX W/ADJ VAGINA PARTICAL VAGINECTOMY WITH ULTRASONIC SCAPEL VAGINAL COLPOSCOPY WITH MICROSCOPE Kin Abarca MD [address] [facility] [address] [place] [address] [facility] Specialty Diagnoses / Procedures Referred By Contac t Referred To Contact Diagnoses Vaginal dysplasia VAGINAL DYSPLASIA Procedures DE OFFICE/OUTPT VISIT,PROCEDURE ONLY DE DESTRUCT,VAGINAL LESION(S),SIMPLE CO2 LASER VAPORIZATION OF LESIONS ([facility] CONF# [id number] - JEREMIAS) Emma Garza MD [address] [facility] [address] [place] [address] [facility] [address] [place] [address] Referral ID Status Reason Start Date Expiration Date Visits Re quested Visits Authorized [id number] 1 1 Reason Comments Care Coordination Surgery [...] 25 g 1 06/28/2022 bacitracin-polymyxin b (POLYSPORIN) [id number] UNIT/GM ointment Apply topically 2 times daily. [...] g 0 06/28/2022 06/28/2022 bacitracin-polymyxin b (POLYSPORIN) [id number] UNIT/GM ointment Apply topically 2 times daily. [...] PRN, Starting on Mon06/15/21 at 0929, Intra-op 09 (Given - Provid er: Kin Abarca MD [...] Provider Active St art: March 26, 2024 Rooter Operator Relationship Specialty Start Date End Date Mateus Perry MD [address] [place] [address] PCP - General Family Medicine 03/04/21 Rooter Operator Relationship Specialty Start Date End Date Mateus Perry MD [address] [place] [address] PCP - General Family Medicine 03/04/21 Rooter Operator Relationship Specialty Start Date End Date Mateus Perry MD [address] [place] [address] PCP - General Family Medicine 03/04/21 Rooter Operator Relationship Specialty Start Date End Date Mateus Perry MD [address] [place] [address] PCP - General Family Medicine 03/04/21 Rooter Operator Relationship Specialty Start Date End Date Mateus Perry MD PCP - General Family Medicine 01/05/17 Rooter Operator Relationship Specialty Start Date End Date Mateus Perry MD PCP - General Family Medicine 01/05/17 Rooter Operator Relationship Specialty Start Date End Date Mateus Perry MD PCP - General Family Medicine 01/05/17 Rooter Operator Relationship Specialty Start Date End Date Mateus Perry MD PCP - General Family Medicine 01/05/17 Rooter Operator Relationship Specialty Start Date End Date Mateus Perry MD PCP - General Family Medicine 01/05/17 Rooter Operator Relationship Specialty Start Date End Date Mateus Perry MD PCP - General Family Medicine 01/05/17 Rooter Operator Relationship Specialty Start Date End Date Mateus Perry MD [address] [place] [address] PCP - General Family Medicine 03/04/21 Team Status: Inactive Member Role Status Dates Mateus Perry MD Primary Care Provider Active Christiano Gonzales MD Attending Provider Active Rooter Operator Relationship Specialty Start Date End Date Mateus Perry MD PCP - General Family Medicine 01/05/17 Rooter Operator Relationship Specialty Start Date End Date Mateus Perry MD PCP - General Family Medicine 01/05/17 Team Status: Inactive Member Role Status Dates Mateus Perry MD Primary Care Provider Active Start: May 01, 2024 End: May 01, 2024 Christiano Gonzales MD Attending Provider Active Start: May 01, 2024 End: May 01, 2024 Rooter Operator Relationship Specialty Start Date End Date Mateus Perry MD [address] [place] [address] PCP - General Family Medicine 02/14/24 Rooter Operator Relationship Specialty Start Date End Date Mateus Perry MD [address] [place] [address] PCP - General Family Medicine 02/14/24 Source Comments (unrecognize d section and content) In the event this informatio n is protected by the Federal Confidentiality of Alcohol and Drug Abuse Patient Records regulations: The Federal rules restrict any use of the information to criminally investigate or prosecute any alcohol or drug abuse patient.[facility] the event this information is protected by the Federal Confidentiality of Alcohol and Drug Abuse Patient Records regulations: The Federal rules restrict any use of the information to criminally investigate or prosecute any alcohol or drug abuse patient.[facility] the event this information is protected by the Federal Confidentiality of Alcohol and Drug Abuse Patient Records regulations: The Federal rules restrict any use of the information to criminally investigate or prosecute any alcohol or drug abuse patient.[facility] the event this information is protected by the Federal Confidentiality of Alcohol and Drug Abuse Patient Records regulations: The Federal rules restrict any use of the information to criminally investigate or prosecute any alcohol or drug abuse patient.[facility] the event this information is protected by the Federal Confidentiality of Alcohol and Drug Abuse Patient Records regulations: The Federal rules restrict any use of the information to criminally investigate or prosecute any alcohol or drug abuse patient.[facility] the event this information is protected by the Federal Confidentiality of Alcohol and Drug Abuse Patient Records regulations: The Federal rules restrict any use of the information to criminally investigate or prosecute any alcohol or drug abuse patient.[facility] the event this information is protected by the Federal Confidentiality of Alcohol and Drug Abuse Patient Records regulations: The Federal rules restrict any use of the information to criminally investigate or prosecute any alcohol or drug abuse patient.[facility] the event this information is protected by the Federal Confidentiality of Alcohol and Drug Abuse Patient Records regulations: The Federal rules restrict any use of the information to criminally investigate or prosecute any alcohol or drug abuse patient.[facility] Goals (unrecognized section and content) Goals may [...] BE BASED ON THE PRIMARY CLINICAL RECORDS. [facility] [employer] [facility]. provides no warranty or guarantee of the accuracy or completeness of information in this document.
[2024-07-19 11:43] LABS: Anion Gap 13.4; BUN Creatinine Ratio 16.7; Calcium 9.3 mg/dL (8.5-10.1); Carbon Dioxide 29.3 mmol/L (21.0-32.0); Chloride 104 mmol/L (98-107); Estimated GFR (African America 35 (>=60 mL/min/1.73m^2); Estimated GFR (Non-African Ame 29 (>=60 mL/min/1.73m^2); Glucose 149 mg/dL (74-106); Potassium 3.7 mmol/L (3.5-5.1); Sodium 143 mmol/L (136-145)
== END 2024-07-19 10:36 | disposition home or self-care (01) ==
LOC: LAB 10:36
PROVIDERS: PCP Family Medicine; Visit Provider Internal Medicine Cardiovascular Disease
DX: I48.21 Permanent atrial fibrillation (principal)
CPT/HCPCS: 36415; 80048; 85025

== ENCOUNTER 2024-09-05 16:46 | Inpatient (IN) | payer MEDICARE, OTHER, SELFPAY ==
[2024-09-05] VITALS (23 sets, daily range): BP systolic 133–138; BP diastolic 71–78; PULSE 75–87; TEMP 36.9; O2SAT 90–96; BMI 27.0; BMI 28.7
--- NOTE | 2024-09-05 16:41 | US_ITS ---
The [address] [address] Patient Name: OSCAR MCLEOD MRN: [id number] date: 1940 Sex: F Assigned Patient Location: ER Current Patient Location: ER Accession/Order Number: [id number] Exam Date: 09/05/2024 17:50 Report Date: 09/05/2024 18:34 At the request of: SIDNEY TELLEZ Procedure: US venous doppler UE LT EXAM: US venous doppler UE LT HISTORY: swelling post op COMPARISON: None. TECHNIQUE: Multiple sonographic images of the deep veins of the left upper extremity were obtained, supplemented with Doppler. FINDINGS: The study is slightly limited secondary to an IV in place. The deep veins of the left upper extremity are relatively well visualized from the neck to the forearm otherwise. No filling defect is identified the deep veins to indicate a thrombus. There is normal compression and augmentation to flow in the accessible deep veins. US/US venous doppler UE LT IMPRESSION: There is no direct or indirect evidence of deep vein thrombosis in the left upper extremity at this time. Electronically authenticated by: MIGUELITO TELLEZ Date: 09/05/2024 18:34
--- NOTE | 2024-09-05 16:43 | PC.NURSE ---
Pain to left shoulder and left arm, denies injury, swelling present to left hand, pulses present to left arm.
--- NOTE | 2024-09-05 16:49 | XR_ITS ---
The [address] [address] Patient Name: OSCAR MCLEOD MRN: [id number] date: 1940 Sex: F Assigned Patient Location: ED.MAIN Current Patient Location: ED.MAIN Accession/Order Number: [id number] Exam Date: 09/05/2024 17:05 Report Date: 09/05/2024 17:52 At the request of: SIDNEY TELLEZ Procedure: XR hand LT min 3V Exam: Radiographs: XR hand LT min 3V, XR chest 1V Reason for exam: pain Comparison: Chest x-ray dated 07/11/2024 XR/XR hand LT min 3V IMPRESSION: Degenerative changes throughout the left hand, most advanced at the DIP joints. Slight subluxation of the fourth DIP joint, this may be chronic. Lucency in the proximal aspect of the fourth middle phalanx is favored to represent a degenerative subchondral cyst although no chondral is also a consideration. Remainder of the left hand radiographs is unremarkable. Pulmonary hypertension. ICD. Right chest wall surgical clips. Remainder the chest is unremarkable. Electronically authenticated by: ALONDRA PRATT Date: 09/05/2024 17:52
--- NOTE | 2024-09-05 16:49 | ECG_ITS ---
The [facility] Test Date: 2024-09-05 Pat Name: OSCAR MCLEOD Department: Room: - Gender: Female Dogger: : 1940 Requested By: MATEUS PERRY Order Number: [id number] Reading MD: JESU PAULSON Measurements Intervals [place] Rate: 88 P: -[id number] [place]: -[id number] QRS: 256 QRSD: 138 T: 70 QT: 418 QTc: 464 Interpretive Statements [id number] Electronic ventricular pacemaker 9120 atypical ECG Compared to ECG 06/26/2024 07:21:21 Atrial fibrillation no longer present Left bundle-branch block no longer present Electronically Signed On 09-08-2024 7:37:47 EST by JESU PAULSON
--- NOTE | 2024-09-05 16:51 | XR_ITS ---
The [address] [address] Patient Name: OSCAR MCLEOD MRN: [id number] date: 1940 Sex: F Assigned Patient Location: ER Current Patient Location: ED.MAIN Accession/Order Number: [id number] Exam Date: 09/05/2024 17:05 Report Date: 09/05/2024 17:52 At the request of: SIDNEY TELLEZ Procedure: XR chest 1V Exam: Radiographs: XR hand LT min 3V, XR chest 1V Reason for exam: pain Comparison: Chest x-ray dated 07/11/2024 XR/XR chest 1V IMPRESSION: Degenerative changes throughout the left hand, most advanced at the DIP joints. Slight subluxation of the fourth DIP joint, this may be chronic. Lucency in the proximal aspect of the fourth middle phalanx is favored to represent a degenerative subchondral cyst although no chondral is also a consideration. Remainder of the left hand radiographs is unremarkable. Pulmonary hypertension. ICD. Right chest wall surgical clips. Remainder the chest is unremarkable. Electronically authenticated by: ALONDRA PRATT Date: 09/05/2024 17:52
--- OUTSIDE RECORDS SUMMARY | 2024-09-05 16:58 | XMS_ITS | CCD ---
Author Organization [facility] Care Team Providers Care Supervisor Cell Operation Name Role Phone Mateus Perry MD Primary Care Provider Mateus Perry Primary Care Physician Mateus Perry MD Primary Care Provider [phone] Mateus Perry MD Primary Care Provider [phone] MD Mateus Perry Primary Care Provider [phone] MD Christiano Gonzales Attending Provider Christiano Gonzales Unavailable Millie Storm Unavailable SONALI [...] Unavailable HOY ., DR IGNACIO Consulting Unavailable [address], DR JUDSON Plunkett Consulting Unavailable MISC, DR [...] HOY ., DR IGNACIO Primary Care Unavailable [address], DR JUDSON Plunkett Consulting Unavailable NILL ., [...] Unavailable HOY ., DR IGNACIO Consulting Unavailable [address], DR JUDSON Plunkett Consulting Unavailable HOY ., [...] Care Provider [phone] FERNY Mathews Attending Provider [phone] MD Mateus Perry Primary Care Provider [phone] FERNY Mathews Attending Provider [phone] Mateus Perry Primary Care Unavailable Bisi, Janell Admitting Unavailable Janell Mathews Attending Unavailable Mateus Perry Primary Care Unavailable Janell Mathews Admitting Unavailable Janell Mathews Attending Unavailable Mateus Perry MD Primary Care Provider [phone] PEYMAN HENSLEY Attending Unavailable PEYMAN HENSLEY Attending Unavailable CONCHA, BRIAN Referring Unavailable GIANA, CHERYL Attending Unavailable CONCHA, BRIAN Attending Unavailable MICHAELRENEE Referring Unavailable MICHAELRENEE Attending Unavailable CONCHA, BRIAN Attending Unavailable MOUKARBELJOSE MARIA Attending Unavailable CONCHA, BRIAN Attending Unavailable CONCHA, BRIAN Referring Unavailable CONCHA, BRIAN Referring Unavailable CONCHA, BRIAN Referring Unavailable CONCHA, BRIAN Admitting Unavailable CONCHA, BRIAN Attending Unavailable CONCHA, BRIAN Admitting Unavailable CONCHA, BRIAN Attending Unavailable CONCHA, BRIAN Referring Unavailable Allergies Allergy Classification Reported Allergen(s) Allergy Type Date of Onset Reaction(s) Facility (18 sources) Acetaminophen / oxyCODONE; 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: [OXYCODONE-ACETAM INOPHEN] Drug Allergy 3 Other (See Comments), Intolerance, GI Upset [facility] (20 sources) Ciprofloxacin; 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: [ciprofloxacin] Drug Allergy 8 Hives, Urticaria (disorder), Other: See Comments [facility] (20 sources) oxyCODONE; 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: [oxycodone] Drug Allergy 9 Rash, Itching (finding) [facility] (19 sources) cefdinir; 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: [cefdinir] Drug Allergy 3 Vomiting (disorder), Other: See Comments, Vomiting, Other (See Comments) [facility] (11 sources) traMADol; 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: [TRAMADOL] Drug Allergy 3 Mental Status Change, Other (See Comments) [facility] (1 source) Cefuroxime Drug Allergy 2 [facility] Duplia Yoomba Work Phone: (5 sources) Acetaminophen; 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: [acetaminophen] Drug Allergy 9 [facility] (2 sources) Acetaminophen / oxyCODONE Drug Allergy 3 [facility] (1 source) Cefuroxime Drug Allergy 2 [facility] (2 sources) Ciprofloxacin Drug Allergy [facility] (1 source) cefdinir Drug Allergy 4 [facility] (1 source) Ciprofloxacin Drug Allergy 4 [facility] (1 source) oxyCODONE Drug Allergy 4 [facility] (1 source) traMADol Drug Allergy 4 [facility] Medications Current Medications Medication Drug [...] 2024 12:00am anastrozole 1 mg oral tablet (17 sources) Aromatase Inhibitor Start: 3 End: 4 [...] Polymyxin-class Antibacterial Start: End: bacitracin-polymyxin b (POLYSPORIN) [id number] UNIT/GM ointment Apply topically 2 times daily. [...] take 1 capsule by mouth twice daily Hampshire 3 1000 MG CAPS Take 1,000 mg by mouth 2 times daily 0 Active End: 05-12-2021 take 1 capsule by mouth once daily Hampshire-3 Fatty Acids (FISH OIL OMEGA-3) 1000 MG CAPS Take 1,000 mg by mouth daily 0 05/12/2021 Discontinued docusate sodium 50 mg / sennosides, jail 8.6 mg oral tablet (2 sources) Start: 06-28-2022 End: 07-28-2022 take 8.6-50 mg by mouth once as needed senna-docusate (PERICOLACE) 8.6-50 MG per tablet Take 1 tablet by mouth 2 times daily as needed for Constipation 60 tablet 1 06/28/2022 06/28/2022 Discontinued (REORDER) empagliflozin 10 mg oral tablet (8 sources) Sodium-Glucose Cotransporter 2 Inhibitor Start: 12-11-2023 take 10 mg by mouth in the morning Jardiance 10 MG Take 10 mg by mouth in the morning. 12/11/2023 Active febuxostat 40 mg oral tablet (9 sources) Xanthine Oxidase Inhibitor Start: 06-09-2023 take [...] mcg ferrous sulfate 325 mg oral tablet (8 sources) Start: 12-11-2023 take 1 tablet by [...] Start: 09-02-2022 take 2 tablets by mo [facility] once daily Cytomel 5 mcg Tab 10 mcg = 2 tab(s), Oral, Daily, Refills(s) 0 Start Date: 09/02/22 Status: Ordered take 2 tablets by mo [facility] once daily liothyronine (Cytomel) 5 MCG tablet Take 2 tablets by mouth Daily Active take 1 tablet by zechariah every twenty-four [...] sources) Polyene Antifungal Start: 06-28-2022 nystatin (MYCOSTATIN) 711728 UNIT/GM powder Apply 3 times daily. 60 g 10 06/28/2022 Active nystatin (MYCOST ATIN) 210574 UNIT/GM powder Apply topically 2 times daily as needed 0 Active Oofpj-9g-Fru-Epa-Fish Oil (Hampshire-3 Fish Oil) 300-1,000 mg Capsule (4 sources) Start: 04-25-2019 Unlmr-3q-Yfo-Epa-Fish Oil (Hampshire-3 Fish Oil) 300-1,000 mg Capsule Active 2 [...] HMG-CoA Reductase Inhibitor Start: 09-02-20 End: 05-12-20 21 take 1 tablet by mouth once daily [...] on above: Take 2 tablets by mo [facility] every 6 hours as needed for Pain. [...] by mouth 4 times daily 0 Active Yxadb-3-NAU-EPA-Fish Oil 1,000 mg (120 mg-180 mg) cap (8 sources) take 1 capsule by mouth twice daily Shvcg-8-PCL-EPA-Fish Oil 1,000 mg (120 mg-180 mg) cap [...] 11-03-2022 09-02-2022 Chronic Chronic ulcer of skin (11 sources) Ulcer of lower extremity; 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: [Non-pressure chronic ulcer of unspecified part of left lower leg with unspecified severity] Onset: 04-24-2024 12-11-2023 Chronic Conditions associated with dizziness or vertigo (4 sources) Brain stem vertigo 09-02-2022 Episodic Conduction disorders (4 sources) Presence of automatic (implantable) cardiac defibrillator; 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: [Presence of cardiac pacemaker] Onset: 07-17-2024 Chronic Congestive heart failure; nonhypertensive (20 sources) Acute combined systolic and diastolic heart failure; 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: [Chronic diastolic heart failure] Onset: 02-15-2022 09-02-2022 Chronic Coronary atherosclerosis and other heart disease (15 sources) Coronary arteriosclerosis; Translations: [Coronary atherosclerosis] Onset: 01-16-2017 09-02-2022 Chronic Diabetes mellitus with complications (10 sources) Type 2 diabetes mellitus with diabetic [...] with heart failure] Onset: 08-16-2022 Chronic Mycoses (4 sources) Pain in toe; Translations: [Tinea unguium] 06-20-2024 Episodic Neoplasms of unspecified nature or uncertain behavior (2 sources) Neoplasm of uncertain behavior of skin; Translations: [Neoplasm of uncertain behavior of skin] 08-29-2024 Episodic Occlusion or stenosis of precerebral arteries [...] Long-term current use of anticoagulant; Translations: [intermediate project manager (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] Onset: 09-09-2022 Episodic Other aftercare (1 source) halfway (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; Translations: [CUSTODIAL CURRNT USE ANTICOAGULANTS] Onset: 11-03-2022 Episodic Other aftercare (1 source) intermediate project manager (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 oral hypoglycemic drugs; Translations: [CUSTODIAL USE ORAL HYPOGLYCEMIC DX] Onset: 11-03-2022 Episodic Other aftercare (1 source) Other assisted (current) drug therapy; Translations: [OTH CUSTODIAL CURRENT DRUG THERAPY] Onset: 11-03-2022 Episodic Other [...] Episodic Other diseases of veins and lymphatics (4 sources) Vascular insufficiency; Translations: [Venous insufficiency (chronic) [...] Onset: 08-13-2022 Episodic Other aftercare (1 source) intermediate project manager (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 aspirin; Translations: [NEWS DIRECTOR CURRENT USE OF ASPIRIN] Onset: 08-25-2022 Episodic [...] Value Interpretation Reference Range Facility Office Visiton 09-02-2024 Follow-up visit [id number] McleodHarman 1940 F Date Provider Department Center 09/02/2024 BRIAN FLANNERY [facility] Family History Problem Relation Age of Onset Stroke Mother Coronary artery disease Father Heart attack Father Family Status - Relation Status Age at Mother Father Level of Service:41458 [place] OFFICE/OUTPATIENT ESTABLISHED SF MDM 10 MIN Normal [facility] Office Visiton 08-27-2024 Follow-up visit [id number] McleodHarman 1940 F Date Provider Department Center 08/27/2024 BRIAN FLANNERY [facility] Family History Problem Relation Age of Onset Stroke Mother Coronary artery disease Father Heart attack Father Family Status - Relation Status Age at Mother Father Level of Service:21224 [place] OFFICE/OUTPATIENT ESTABLISHED LOW MDM 20 MIN Normal [facility] HPon 08-12-2024 [facility] Electrophysiology Consult Note [place] Cardiology [facility] Reason for visit: Afib 08/12/24 Pt had DIRECTOR OF ELEMENTARY EDUCATION on 07/10/24 and now presents for AVN ablation Prior HPI: Harman Mcleod is a 83 y.o. [...] in A-fib. She was just discharged from [facility] for GI bleed. Eliquis and aspirin [...] Diagnosis Date Abnormal ECG Arrhythmia Atrial fibrillation ([facility]/HCC) CAD (coronary artery disease) Cancer ([facility]/HCC) CHF (congestive heart failure) ([facility]/HCC) Chronic kidney disease COPD (chronic obstructive pulmonary disease) ([facility]/HCC) Diabetes mellitus ([facility]/HCC) GI bleed Heart murmur Hyperlipidemia Hypertension PVD (peripheral vascular disease) ([facility]) PSH: Past Surgical History: Procedure Laterality Date CARDIAC CATHETERIZATION 12/15/2011, 08/23/2010, 12/30/2004, CORONARY STENT PLACEMENT HYSTERECTOMY 03/11/2005 VASCULAR SURGERY SH: Social Determinants of Health Tobacco Use: Medium Risk (06/20/2024) [facility] Patient History Smoking Tobacco Use: Former Smokeless Tobacco Use: Never Passive Exposure: Not on file Alcohol Use: Not on file Financial Resource Strain: Not on file Food Insecurity: Not on file Transportation Needs: Not on file Physical Activity: Not on file Stress: Not on file Social Connections: Not on file Intimate Partner Violence: Unknown (11/02/2023) [place] Safety & Environment Fear of Current or Ex-Partner: Not on file Emotionally Abused: Not on file Physically Abused: Not on file Sexually Abused: Not on file Physically or Sexually Abused: Not on file Depression: Not at risk (02/14/2023) [facility] PHQ-2 PHQ-2 score: 0 Housing Stability: Not on file Utilities: Not on file Health Literacy: Not on file Allergies: Allergies Allergen Reactions Ciprofloxacin Hives and Other Other reaction(s): Other: See Comments tendon issues tendon issues Cefdinir Other Tramadol Other Oxycodone Rash Rash & GI upset Oxycodone-Acetaminophe n Other GI upset & rash Weight: 67.1kg Visit Vitals BP 122/77 Pulse 107 Resp 17 Ht 1.549 m (5' 1 ) Wt 65.8 kg (145 lb) SpO2 93% BMI 27.40 kg/m??? OB Status Postmenopausal Smoking Status Former BSA 1.68 m??? Meds: No current facility-administered medications on file prior to encounter. Current Outpatient Medications on File Prior to Encounter Medication Sig Dispense Refill albuterol 2.5 mg /3 mL (0.083 %) nebulizer solution USE 1 VIAL IN NEBULIZER 4 TIMES DAILY NEEDED anastrozole (Arimidex) 1 mg chemo tablet Take 1 mg by mouth in the morning Swallow whole with a drink of water. apixaban (Eliquis) 2.5 mg tablet Take 1 tablet (2.5 mg) by mouth two times daily. Do not start before July 24, 2024. 60 tablet 1 aspirin 81 mg EC tablet Take 81 mg by mouth. cholecalciferol (D3-5) 5,000 Units tablet in the morning. febuxostat (Uloric) 40 mg tablet Take 40 mg by mouth in the morning. ferrous sulfate 325 (65 Fe) MG tablet Take 325 mg by mouth two times daily. fish oil concentrate (Hampshire-3) 120-180 mg capsule Take 1,000 mg by [...] tablet Take 10 mcg by mouth in th (more content not included)... [facility] NURSNOTEon 08-12-2024 NURSNOTE RN educated pt on d/ c instructions. [...] off of unit with all of belongings. [facility] 36on 07-18-2024 36 Patient's significan t toya (Sreekanth) called the office to confirm Harman has been taking 100mg of metoprolol once a day. She has 200mg tablets. I advised him - per Dr. Lamb- to make sure she's taking 100mg bid. She will take half tablet bid. Sreekanth verbalized understanding. [facility] Office Visiton 07-17-2024 Follow-up visit [id number] Harman Mcleod 1940 F Date Provider Department Center 07/17/2024 [id number] [facility] Problem Relation Age of Onset Stroke Mother Coronary artery disease Father Heart attack Father Family Status - Relation Status Age at Mother Father Level of Service:51225 [place] OFFICE/OUTPATIENT ESTABLISHED MOD MDM 30 MIN Reason for Visit and Comments: S/P PACEMAKER [Other] - HERE FOR A WOUND CHECK TODAY Atrial Fibrillation [80] - CHADSVASC score of 7 Coronary Artery Disease [187] Hypertension [673260] Edema [[id number]] - LEGS AND FEET ARE SWOLLEN TODAY, PT WANTS TO KNOW IF SHOULD GO BACK ON LASIX DAILY [facility] Orders Onlyon 07-17-2024 Orders Only [id number] Harman Mcleod 1940 F Date Provider Department Center 07/17/2024 JORGE LONG [facility] Family History Problem Relation Age of Onset Stroke Mother Coronary artery disease Father Heart attack Father Family Status - Relation Status Age at Mother Father Normal [facility] HP 07-10-2024 [facility] Electrophysiology Consult Note [place] Cardiology - [facility] Reason for visit: Afib HPI: [...] in A-fib. She was just discharged from [facility] for GI bleed. Eliquis and aspirin [...] on file Intimate Partner Violence: Unknown (11/02/2023) [place] Safety & [place] Fear of Current or [...] mouth two times daily. fish oil concentrate (Hampshire-3) 120-180 mg capsule Take 1,000 mg by [...] tablet 3 spironolac (more content not included)... [facility] NURSNOTEon 07-10-2024 NURSNOTE RN educated pt on d/ c instructions. [...] off of unit with all of belongings. [facility] Office Visiton 07-02-2024 Follow-up visit [id number] Harman Mcleod 1940 Date Provider Department Center 07/02/2024 BRIAN FLANNERY [facility] Family History Problem Relation Age of Onset Stroke Mother Coronary artery disease Father Heart attack Father Family Status - Relation Status Age at Mother Father Level of Service:27186 [place] OFFICE/OUTPATIENT NEW MODERATE MDM 45 MINUTES [facility] Orders Onlyon 07-02-2024 Orders Only [id number] Harman Mcleod 1940 Provider Department Center 07/02/2024 Chiara-WENDY WILL CARD [facility] Family History Problem Relation Age of Onset Stroke Mother Coronary artery disease Father Heart attack Father Family Status - Relation Status Age at Mother Father Normal [facility] Office Visiton 06-12-2024 Follow-up visit [id number] Harman Mcleod 1940 Date Provider Department Center 06/12/2024 LonnyMARCILIZETHJOSE MARIA SMITH [facility] Family History Problem Relation Age of Onset Stroke Mother Coronary artery disease Father Heart attack Father Family Status - Relation Status Age at Mother Father Level of Service:87780 [place] OFFICE/OUTPATIENT ESTABLISHED HIGH MDM 40 MIN Normal [facility] 36on 06-10-2024 36 Pt informed hoys office updated Normal [facility] 37on 05-27-2024 37 Increase Zocor/simvastatin to 40 mg daily- from 20 mg for better cholesterol control Have blood drawn in 2-3 months for liver function and lipid levels- you must be fasting to have drawn Normal [facility] Office Visiton 05-27-2024 Follow-up visit [id number] Hamran Mcleod 1940 Date Provider Department Center 05/27/2024 CHERYL MEYER [facility] Family History Problem Relation Age of Onset Stroke Mother Coronary artery disease Father Heart attack Father Family Status - Relation Status Age at Mother Father Level of Service:21154 [place] OFFICE/OUTPATIENT ESTABLISHED LOW MDM 20 MIN Normal [facility] US ankle/arm indiceson 04-09 US ankle/arm indices [facility] [place] [address] Ultrasound Report Signed Patient: Harman Mcleod MR#: [id number] : 1940 Acct:[id number] Age/Sex: 83 / F ADM Date: 04/09/24 Loc: Room: Type: [facility] Attending Dr: Janell Mathews APRN Ordering Provider: [...] Christiano Gonzales MD04/09/2024 2:02 PM Dictation Location: [place] [address] Tech: Kaleigh Ortega Transcribed By: FRANCIA 04/09/24 1402 Dictated By: Christiano Gonzales MD 04/09/24 1401 Signed By: 04/09/24 1402 Normal [facility] [place] [address] Ultrasound Report Signed Patient: Harman Mcleod MR#: [id number] : 1940 Acct:[id number] Age/Sex: 83 / F ADM Date: 04/09/24 Loc: Room: Type: [facility] Attending Dr: Janell Mathews APRN Ordering Provider: [...] Christiano Gonzales MD04/09/2024 2:01 PM Dictation Location: [place] [address] Tech: Francesca Estrada Transcribed By: FRANCIA 04/09/24 1401 Dictated By: Christiano Gonzales MD 04/09/24 1359 Signed By: 04/09/24 1401 Normal [facility] Consultation Noteon 06-21-20 Consultation Note [id number] 0TIFF Normal [facility] CBC W Auto Differential pane l (Bld)on 06-20-2023 Basophils (Bld) [#/Vol] 0.03 10*3/uL Normal <0.11 [facility] Comment on above: Order Comment: Speci men Type: BLOOD SPECIMENOrdering Facility: [facility] Address: [address] [place] [address] Performed By: #### 5 7021-8 ####[facility]CL[facility] [id number] [place] [address] Basophils/100 WBC (Bld) 0.3 % Normal [facility] Comment on above: Order Comment: Speci men Type: BLOOD SPECIMENOrdering Facility: [facility] Address: [address] [place] [address] Performed By: #### 5 7021-8 ####[facility] LABCLIA [id number] [place] [address] Differential cell count method Nom (Bld) Auto Normal [facility] Comment on above: Order Comment: Speci men Type: BLOOD SPECIMENOrdering Facility: [facility] Address: [address] [place] [address] Performed By: #### 5 7021-8 ####[facility] LABCLIA [id number] [place] [address] Eosinophils (Bld) [#/Vol] 10*3/uL Normal <0.46 [facility] Comment on above: Order Comment: Speci men Type: BLOOD SPECIMENOrdering Facility: [facility] Address: [address] [place] [address] Performed By: #### 5 7021-8 ####[facility] LABCLIA [id number] [place] [address] Eosinophils/100 WBC (Bld) 0.2 % Normal [facility] Comment on above: Order Comment: Speci men Type: BLOOD SPECIMENOrdering Facility: [facility] Address: [address] [place] [address] Performed By: #### 5 7021-8 ####[facility] LABCLIA [id number] [place] [address] Erythrocyte distribution width (RBC) [Ratio] 14.4 % Normal 11.5-15.0 [facility] Comment on above: Order Comment: Speci men Type: BLOOD SPECIMENOrdering Facility: [facility] Address: [address] [place] [address] Performed By: #### 5 7021-8 ####[facility] LABCLIA [id number] [place] [address] Hematocrit (Bld) [Volume fraction] 34.9 % Low 36.0-46.0 [facility] Comment on above: Order Comment: Speci men Type: BLOOD SPECIMENOrdering Facility: [facility] Address: [address] [place] [address] Performed By: #### 5 7021-8 ####[facility] LABCLIA [id number] [place] [address] Hemoglobin (Bld) [Mass/Vol] 10.9 g/dL Low 11.5-15.5 [facility] Comment on above: Order Comment: Speci men Type: BLOOD SPECIMENOrdering Facility: [facility] Address: [address] [place] [address] Performed By: #### 5 7021-8 ####[facility] LABCLIA [id number] [place] [address] Immature granulocytes (Bld) [#/Vol] 0.11 10*3/uL High <0.10 [facility] Comment on above: Order Comment: Speci men Type: BLOOD SPECIMENOrdering Facility: [facility] Address: [address] [place] [address] Performed By: #### 5 7021-8 ####[facility] LABCLIA [id number] [place] [address] Immature granulocytes/100 WBC (Bld) 1.1 % Normal [facility] Comment on above: Order Comment: Speci men Type: BLOOD SPECIMENOrdering Facility: [facility] Address: [address] [place] [address] Performed By: #### 5 7021-8 ####[facility] LABCLIA [id number] [place] [address] Lymphocytes (Bld) [#/Vol] 1.97 10*3/uL Normal 1.00-4.00 [facility] Comment on above: Order Comment: Speci men Type: BLOOD SPECIMENOrdering Facility: [facility] Address: [address] [place] [address] Performed By: #### 5 7021-8 ####[facility] LABCLIA [id number] [place] [address] Lymphocytes/100 WBC (Bld) 19.3 % Normal [facility] Comment on above: Order Comment: Speci men Type: BLOOD SPECIMENOrdering Facility: [facility] Address: [address] [place] [address] Performed By: #### 5 7021-8 ####[facility] LABCLIA [id number] [place] [address] MCH (RBC) [Entitic mass] 29.9 pg Normal 26.0-34.0 [facility] Comment on above: Order Comment: Speci men Type: BLOOD SPECIMENOrdering Facility: [facility] Address: [address] [place] [address] Performed By: #### 5 7021-8 ####[facility] LABCLIA [id number] [place] [address] MCHC (RBC) [Mass/Vol] 31.2 g/dL Normal 30.5-36.0 [facility] Comment on above: Order Comment: Speci men Type: BLOOD SPECIMENOrdering Facility: [facility] Address: [address] [place] [address] Performed By: #### 5 7021-8 ####[facility] LABCLIA [id number] [place] [address] MCV (RBC) [Entitic vol] 95.6 fL Normal 80.0-100.0 [facility] Comment on above: Order Comment: Speci men Type: BLOOD SPECIMENOrdering Facility: [facility] Address: [address] [place] [address] Performed By: #### 5 7021-8 ####[facility] LABIA [id number] [place] [address] Monocytes (Bld) [#/Vol] 0.49 10*3/uL Normal <0.87 [facility] Comment on above: Order Comment: Speci men Type: BLOOD SPECIMENOrdering Facility: [facility] Address: [address] [place] [address] Performed By: #### 5 7021-8 ####[facility] LABIA [id number] [place] [address] Monocytes/100 WBC (Bld) 4.8 % Normal [facility] Comment on above: Order Comment: Speci men Type: BLOOD SPECIMENOrdering Facility: [facility] Address: [address] [place] [address] Performed By: #### 5 7021-8 ####[facility] LABIA [id number] [place] [address] Neutrophils (Bld) [#/Vol] 7.59 10*3/uL High 1.45-7.50 [facility] Comment on above: Order Comment: Speci men Type: BLOOD SPECIMENOrdering Facility: [facility] Address: [address] [place] [address] Performed By: #### 5 7021-8 ####[facility] LABCLIA [id number] [place] [address] Neutrophils/100 WBC (Bld) 74.3 % Normal [facility] Comment on above: Order Comment: Speci men Type: BLOOD SPECIMENOrdering Facility: [facility] Address: [address] [place] [address] Performed By: #### 5 7021-8 ####[facility] LABCLIA [id number] [place] [address] Nucleated RBC (Bld) [#/Vol] 10*3/uL Normal <0.01 [facility] Comment on above: Order Comment: Speci men Type: BLOOD SPECIMENOrdering Facility: [facility] Address: [address] [place] [address] Performed By: #### 5 7021-8 ####[facility] LABCLIA [id number] [place] [address] Nucleated RBC/100 WBC (Bld) [Ratio] 0.0 /100 WBC Normal [facility] Comment on above: Order Comment: Speci men Type: BLOOD SPECIMENOrdering Facility: [facility] Address: [address] [place] [address] Performed By: #### 5 7021-8 ####[facility] LABCLIA [id number] [place] [address] Platelet mean volume (Bld) [Entitic vol] 9.3 fL Normal 9.0-12.7 [facility] Comment on above: Order Comment: Speci men Type: BLOOD SPECIMENOrdering Facility: [facility] Address: [address] [place] [address] Performed By: #### 5 7021-8 ####[facility] LABCLIA [id number] [place] [address] Platelets (Bld) [#/Vol] 275 10*3/uL Normal 150-400 [facility] Comment on above: Order Comment: Speci men Type: BLOOD SPECIMENOrdering Facility: [facility] Address: [place] [address] Performed By: #### 5 7021-8 ####[facility] LABIA [id number] [place] [address] RBC (Bld) [#/Vol] 3.65 10*6/uL Low 3.90-5.20 [facility] Comment on above: Order Comment: Speci men Type: BLOOD SPECIMENOrdering Facility: [facility] Address: [place] [address] Performed By: #### 5 7021-8 ####[facility] LABIA [id number] [place] [address] WBC (Bld) [#/Vol] 10.21 10*3/uL Normal 3.70-11.00 [facility] Comment on above: Order Comment: Speci men Type: BLOOD SPECIMENOrdering Facility: [facility] Address: [address] [place], [place] [address] Performed By: #### 5 7021-8 ####[facility] LABIA [id number] [place] [address] CNOVSPon 06-20-2023 OVS Visit (SP) Office (HEMASA) HARMAN MCLEOD ([id number]) 1940 F Date Time Provider Department 06/20/23 2:30 PM WINNIE GUZMÁN During your visit today, we recorded the following information about you: Temperature Pulse Respiration Blood pressure 97.4 degrees 72/minute 16/minute 138/55 Weight Height 84.6 kg 1.549 m Winnie Guzmán PA-C 06/20/2023 3:58 PM Signed PATIENT NAME: Harman Mcleod CLINIC NO.: [id number] ATTENDING PHYSICIAN: Wallace Stone MD DATE OF [...] Negative LVI, 2 SNL negative, ER and NH >95% positive, Her2 IHC 1+ Treatment History: [...] 06/20/2023 1.77 (more content not included)... Normal [facility] Comprehensive metabolic 2000 panelon 06-20-2023 Albumin [Mass/Vol] 4.0 g/dL Normal 3.9-4.9 [facility] Comment on above: Order Comment: Speci men Type: BLOOD SPECIMENOrdering Facility: [facility] Address: [address] [place] [address] Performed By: #### 2 4323-8 ####[facility] LABCLIA [id number] [place] [address] ALP [Catalytic activity/Vol] 72 U/L Normal 34-123 [facility] Comment on above: Order Comment: Speci men Type: BLOOD SPECIMENOrdering Facility: [facility] Address: [address] [place] [address] Performed By: #### 2 4323-8 ####[facility] LABCLIA [id number] [place] [address] ALT [Catalytic activity/Vol] 17 U/L Normal 7-38 [facility] Comment on above: Order Comment: Speci men Type: BLOOD SPECIMENOrdering Facility: [facility] Address: [address] [place] [address] Performed By: #### 2 4323-8 ####[facility] LABCLIA [id number] [place] [address] Anion gap [Moles/Vol] 9 mmol/L Normal 9-18 [facility] Comment on above: Order Comment: Speci men Type: BLOOD SPECIMENOrdering Facility: [facility] Address: [address] [place] [address] Performed By: #### 2 4323-8 ####[facility] LABCLIA [id number] [place] [address] AST [Catalytic activity/Vol] 11 U/L Low 13-35 [facility] Comment on above: Order Comment: Speci men Type: BLOOD SPECIMENOrdering Facility: [facility] Address: [address] [place] [address] Performed By: #### 2 4323-8 ####[facility] LABCLIA [id number] [place] [address] Bilirubin [Mass/Vol] 0.2 mg/dL Normal 0.2-1.3 [facility] Comment on above: Order Comment: Speci men Type: BLOOD SPECIMENOrdering Facility: [facility] Address: [address] [place] [address] Performed By: #### 2 4323-8 ####[facility] LABCLIA [id number] [place] [address] Calcium [Mass/Vol] 10.1 mg/dL Normal 8.5-10.2 [facility] Comment on above: Order Comment: Speci men Type: BLOOD SPECIMENOrdering Facility: [facility] Address: [address] [place] [address] Performed By: #### 2 4323-8 ####[facility] LABCLIA [id number] [place] [address] Chloride [Moles/Vol] 103 mmol/L Normal 97-105 [facility] Comment on above: Order Comment: Speci men Type: BLOOD SPECIMENOrdering Facility: [facility] Address: [address] [place] [address] Performed By: #### 2 4323-8 ####[facility] LABCLIA [id number] [place] [address] CO2 [Moles/Vol] 30 mmol/L Normal 22-30 [facility] Comment on above: Order Comment: Speci men Type: BLOOD SPECIMENOrdering Facility: [facility] Address: [address] [place] [address] Performed By: #### 2 4323-8 ####[facility] LABCLIA [id number] [place] [address] Creatinine [Mass/Vol] 1.77 mg/dL High 0.58-0.96 [facility] Comment on above: Order Comment: Dimple de santiago Type: BLOOD SPECIMENOrdering Facility: [facility] Address: [address] [place] [address] Performed By: #### 2 4323-8 ####[facility] LABCLIA [id number] [place] [address] Creatinine and Glomerular filtration rate.predicted panel (S/P/Bld) 29 mL/min/1.73m??? Low >=60 [facility] Comment on above: Order Comment: Dimple men Type: BLOOD SPECIMENOrdering Facility: [facility] Address: [address] [place] [address] Result Comment: Ramila mated Glomerular Filtration Rate [...] actual GFR. Performed By: #### 2 4323-8 ####[facility] LABCLIA [id number] [place] [address] Glucose [Mass/Vol] 273 mg/dL High 74-99 [facility] Comment on above: Order Comment: Dimple anyi Type: BLOOD SPECIMENOrdering Facility: [facility] Address: [address] [place] [address] Result Comment: The [place] Diabetes Association (ADA) provides guidance for cutoff [...] Standards of Medical Care in Diabetes 2016, [place] Diabetes Association. Diabetes Care. 2016.39(Suppl 1). Performed By: #### 2 4323-8 ####[facility] LABCLIA [id number] [place] [address] Potassium [Moles/Vol] 5.1 mmol/L Normal 3.7-5.1 [facility] Comment on above: Order Comment: Speci men Type: BLOOD SPECIMENOrdering Facility: [facility] Address: [address] [place] [address] Performed By: #### 2 4323-8 ####[facility] LABCLIA [id number] [place] [address] Protein [Mass/Vol] 6.4 g/dL Normal 6.3-8.0 [facility] Comment on above: Order Comment: Speci men Type: BLOOD SPECIMENOrdering Facility: [facility] Address: [address] [place] [address] Performed By: #### 2 4323-8 ####[facility] LABCLIA [id number] [place] [address] Sodium [Moles/Vol] 142 mmol/L Normal 136-144 [facility] Comment on above: Order Comment: Speci men Type: BLOOD SPECIMENOrdering Facility: [facility] Address: [address] [place] [address] Performed By: #### 2 4323-8 ####[facility] LABCLIA [id number] [place] [address] Urea nitrogen [Mass/Vol] 40 mg/dL High 7-21 [facility] Comment on above: Order Comment: Speci men Type: BLOOD SPECIMENOrdering Facility: [facility] Address: [address] [place] [address] Performed By: #### 2 4323-8 ####[facility] LABCLIA [id number] [place] [address] Vaginitis DNA Probeon 2022 Manjula Negative Normal NEG [facility] Comment on above: Result Comment: for Manjula sp. Method of testing is a DNA probe intended for detection and identification of Manjula species, Gardnerella vaginalis, and Trichomonas vaginalis nucleic acid in vaginal fluid specimens from patients with symptoms of vaginitis/vaginosis. Performed By: #### V AGP #### [facility] [place] [address] Towel Hemmer: Fidel Hylton MD Gardnerella Negative Normal NEG [facility] Comment on above: Result Comment: for Gardnerella vaginalis Performed By: #### V AGP #### [facility] [employer] [address] [place] [address] [id number] Towel Hemmer: Fidel Hylton MD Trichomonas Negative Normal NEG [facility] Comment on above: Result Comment: for Trichomonas Vaginalis Performed By: #### V AGP #### [facility] [employer] [address] [place] [address] Towel Hemmer: Fidel Hylton MD Source .VAGINAL SWAB Normal [facility] Comment on above: Performed By: #### V AGP #### [facility] [address] [place] [address] [id number] Towel Hemmer: Fidel Hylton MD OPERATIVE REPORTon OPERATIVE REPORT [address] [address] OPERATIVE REPORT PATIENT NAME: HARMAN MCLEOD : 1940 MED REC NO: [id number] ROOM: ACCOUNT NO: [id number] ADMIT DATE: 03/06/2023 PROVIDER: Emma Garza MD DATE OF PROCEDURE: 03/06/2023 PREOPERATIVE DIAGNOSIS: Recurrent vaginal dysplasia. POSTOPERATIVE DIAGNOSIS: Recurrent vaginal dysplasia. OPERATION PERFORMED: Examination under anesthesia, carbon dioxide laser vaporization of vaginal dysplasia. COMPLICATIONS: None. BLOOD LOSS: Minimal. SURGEON: Emma Garza MD THROW OUT CLERK: Mauri (resident). DISPOSITION: The patient to recovery room stable. SPECIMENS: No specimen sent to Pathology. OPERATIVE FINDINGS: The patient had a small 1-2 cm area of zbspdtms-gj-rpldis dysplasia along the anterior vagina from 12 [...] entire procedure. EMMA GARZA MD [email or web address] Doc#: [id number] CC: Normal [facility] Consultation Noteon 02-20-20 Consultation Note [id number] 0CD:127 Normal [facility] CBC W Auto Differential pane l (Bld)on 02-14-2023 Basophils (Bld) [#/Vol] 0.04 10*3/uL Normal <0.11 [facility] Comment on above: Order Comment: Speci men Type: BLOOD SPECIMENOrdering Facility: [facility] Address: [address] [address] Performed By: #### 5 7021-8 ####[facility] LABCLIA [id number] [place] [address] Basophils/100 WBC (Bld) 0.4 % Normal [facility] Comment on above: Order Comment: Speci men Type: BLOOD SPECIMENOrdering Facility: [facility] Address: [address] [place], [place] [address] Performed By: #### 5 7021-8 ####[facility] LABCLIA [id number] [place] [address] Differential cell count method Nom (Bld) Auto Normal [facility] Comment on above: Order Comment: Speci men Type: BLOOD SPECIMENOrdering Facility: [facility] Address: [address] [place] [address] Performed By: #### 5 7021-8 ####[facility] LABCLIA [id number] [place] [address] Eosinophils (Bld) [#/Vol] 0.20 10*3/uL Normal <0.46 [facility] Comment on above: Order Comment: Speci men Type: BLOOD SPECIMENOrdering Facility: [facility] Address: [address] [place] [address] Performed By: #### 5 7021-8 ####[facility] LABCLIA [id number] [place] [address] Eosinophils/100 WBC (Bld) 1.9 % Normal [facility] Comment on above: Order Comment: Speci men Type: BLOOD SPECIMENOrdering Facility: [facility] Address: [address] [place] [address] Performed By: #### 5 7021-8 ####[facility] LABCLIA [id number] [place] [address] Erythrocyte distribution width (RBC) [Ratio] 14.1 % Normal 11.5-15.0 [facility] Comment on above: Order Comment: Speci men Type: BLOOD SPECIMENOrdering Facility: [facility] Address: [address] [place] [address] Performed By: #### 5 7021-8 ####[facility] LABCLIA [id number] [place] [address] Hematocrit (Bld) [Volume fraction] 38.4 % Normal 36.0-46.0 [facility] Comment on above: Order Comment: Speci men Type: BLOOD SPECIMENOrdering Facility: [facility] Address: [address] [place] [address] Performed By: #### 5 7021-8 ####[facility] LABCLIA [id number] [place] [address] Hemoglobin (Bld) [Mass/Vol] 12.2 g/dL Normal 11.5-15.5 [facility] Comment on above: Order Comment: Speci men Type: BLOOD SPECIMENOrdering Facility: [facility] Address: [address] [place] [address] Performed By: #### 5 7021-8 ####[facility] LABCLIA [id number] [place] [address] Immature granulocytes (Bld) [#/Vol] 0.06 10*3/uL Normal <0.10 [facility] Comment on above: Order Comment: Speci men Type: BLOOD SPECIMENOrdering Facility: [facility] Address: [address] [place] [address] Performed By: #### 5 7021-8 ####[facility] LABCLIA [id number] [place] [address] Immature granulocytes/100 WBC (Bld) 0.6 % Normal [facility] Comment on above: Order Comment: Speci men Type: BLOOD SPECIMENOrdering Facility: [facility] Address: [address] [place] [address] Performed By: #### 5 7021-8 ####[facility] LABCLIA [id number] [place] [address] Lymphocytes (Bld) [#/Vol] 2.56 10*3/uL Normal 1.00-4.00 [facility] Comment on above: Order Comment: Speci men Type: BLOOD SPECIMENOrdering Facility: [facility] Address: [address] [place] [address] Performed By: #### 5 7021-8 ####[facility] LABCLIA [id number] [place] [address] Lymphocytes/100 WBC (Bld) 24.6 % Normal [facility] Comment on above: Order Comment: Speci men Type: BLOOD SPECIMENOrdering Facility: [facility] Address: [address] [place] [address] Performed By: #### 5 7021-8 ####[facility] LABCLIA [id number] [place] [address] MCH (RBC) [Entitic mass] 30.0 pg Normal 26.0-34.0 [facility] Comment on above: Order Comment: Speci men Type: BLOOD SPECIMENOrdering Facility: [facility] Address: [address] [place] [address] Performed By: #### 5 7021-8 ####[facility] LABCLIA [id number] [place] [address] MCHC (RBC) [Mass/Vol] 31.8 g/dL Normal 30.5-36.0 [facility] Comment on above: Order Comment: Speci men Type: BLOOD SPECIMENOrdering Facility: [facility] Address: [address] [address] Performed By: #### 5 7021-8 ####[facility] LABCLIA [id number] [place] [address] MCV (RBC) [Entitic vol] 94.3 fL Normal 80.0-100.0 [facility] Comment on above: Order Comment: Speci men Type: BLOOD SPECIMENOrdering Facility: [facility] Address: [address] [address] Performed By: #### 5 7021-8 ####[facility] LABCLIA [id number] [place] [address] Monocytes (Bld) [#/Vol] 0.86 10*3/uL Normal <0.87 [facility] Comment on above: Order Comment: Speci men Type: BLOOD SPECIMENOrdering Facility: [facility] Address: [address] [place] [address] Performed By: #### 5 7021-8 ####[facility] LABCLIA [id number] [place] [address] Monocytes/100 WBC (Bld) 8.3 % Normal [facility] Comment on above: Order Comment: Speci men Type: BLOOD SPECIMENOrdering Facility: [facility] Address: [address] [place] [address] Performed By: #### 5 7021-8 ####[facility] LABCLIA [id number] [place] [address] Neutrophils (Bld) [#/Vol] 6.69 10*3/uL Normal 1.45-7.50 [facility] Comment on above: Order Comment: Speci men Type: BLOOD SPECIMENOrdering Facility: [facility] Address: [address] [place] [address] Performed By: #### 5 7021-8 ####[facility] LABCLIA [id number] [place] [address] Neutrophils/100 WBC (Bld) 64.2 % Normal [facility] Comment on above: Order Comment: Speci men Type: BLOOD SPECIMENOrdering Facility: [facility] Address: [address] [place] [address] Performed By: #### 5 7021-8 ####[facility] LABCLIA [id number] [place] [address] Nucleated RBC (Bld) [#/Vol] 10*3/uL Normal <0.01 [facility] Comment on above: Order Comment: Speci men Type: BLOOD SPECIMENOrdering Facility: [facility] Address: [address] [place] [address] Performed By: #### 5 7021-8 ####[facility] LABCLIA [id number] [place] [address] Nucleated RBC/100 WBC (Bld) [Ratio] 0.0 /100 WBC Normal [facility] Comment on above: Order Comment: Speci men Type: BLOOD SPECIMENOrdering Facility: [facility] Address: [address] [address] Performed By: #### 5 7021-8 ####[facility] LABCLIA [id number] [place] [address] Platelet mean volume (Bld) [Entitic vol] 9.6 fL Normal 9.0-12.7 [facility] Comment on above: Order Comment: Speci men Type: BLOOD SPECIMENOrdering Facility: [facility] Address: [address] [place] [address] Performed By: #### 5 7021-8 ####[facility] LABCLIA [id number] [place] [address] Platelets (Bld) [#/Vol] 271 10*3/uL Normal 150-400 [facility] Comment on above: Order Comment: Speci men Type: BLOOD SPECIMENOrdering Facility: [facility] Address: [address] [place] [address] Performed By: #### 5 7021-8 ####[facility] LABCLIA [id number] [place] [address] RBC (Bld) [#/Vol] 4.07 10*6/uL Normal 3.90-5.20 [facility] Comment on above: Order Comment: Speci men Type: BLOOD SPECIMENOrdering Facility: [facility] Address: [address] [address] Performed By: #### 5 7021-8 ####[facility] LABCLIA [id number] [place] [address] WBC (Bld) [#/Vol] 10.41 10*3/uL Normal 3.70-11.00 [facility] Comment on above: Order Comment: Speci men Type: BLOOD SPECIMENOrdering Facility: [facility] Address: [address] [place] [address] Performed By: #### 5 7021-8 ####[facility] LABIA [id number] [place] [address] CNOVSPon 02-14-2023 CNOVSP Visit (SP) Office (HEMASA) HARMAN MCLEOD ([id number]) 1940 F Date Time Provider Department 02/14/23 10:30 AM WALLACE STONE During your visit today, we recorded the following information about you: Temperature Pulse Respiration Blood pressure 97.4 degrees 102/minute 16/minute 151/90 Weight Height 84.5 kg 1.549 m Wallace Stone MD 02/14/2023 10:49 AM Signed PATIENT NAME: Harman Mcleod CLINIC NO.: [id number] ATTENDING PHYSICIAN: Wallace Stone MD DATE OF [...] Negative LVI, 2 SNL negative, ER and NH >95% positive, Her2 IHC 1+ Treatment History: [...] : Deferre (more content not included)... Normal [facility] CNPNon 02-14-2023 CNPN Telephone (NCCAP) HARMAN MCLEOD ([id number]) 1940 F Date Time Provider Department 02/14/23 WALLACE STONE [facility] During your visit today, we recorded the following information about you: Angelica Bhakta Sec 02/14/2023 11:00 AM Signed Please ref to [facility] for Consult dx eczema They will call the patient to schedule after review of records. Janeth, Please fax records Dudley, Please check on this appt. Kira Ko [facility] 02/14/2023 1:14 PM Signed Records faxed to [facility]. Adriana Pereira [facility] 02/22/2023 8:35 AM Signed Called [facility] [...] daily at bedtime. Cut in half - Kyjwc-1-EUI-EPA-Fish Oil 1,000 mg (120 mg-180 mg) cap Take 2 g by mouth twice daily. - isosorbide mononitrate ER (IMDUR) 60 mg 24 hr tablet Take 60 mg by mouth twice daily. 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 Stage 3a chronic kidney disease (HCC) [N18.31] 02/14/2023 Encounter Status:Closed by ANGELICA MILLAN on 02/28/23 Normal [facility] Comprehensive metabolic 2000 panelon 02-14-2023 Albumin [Mass/Vol] 4.1 g/dL Normal 3.9-4.9 [facility] [facility] Comment on above: Order Comment: Speci men Type: BLOOD SPECIMENOrdering Facility: [facility] Address: [address] [place] [address] Performed By: #### 2 4323-8 ####[facility] LABCLIA [id number] [place] [address] ALP [Catalytic activity/Vol] 106 U/L Normal 34-123 [facility] Comment on above: Order Comment: Speci men Type: BLOOD SPECIMENOrdering Facility: [facility] Address: [address] [address] Performed By: #### 2 4323-8 ####[facility] LABCLIA [id number] [place] [address] ALT [Catalytic activity/Vol] 14 U/L Normal 7-38 [facility] Comment on above: Order Comment: Speci men Type: BLOOD SPECIMENOrdering Facility: [facility] Address: [address] [address] Performed By: #### 2 4323-8 ####[facility] LABCLIA [id number] [place] [address] Anion gap [Moles/Vol] 11 mmol/L Normal 9-18 [facility] Comment on above: Order Comment: Speci men Type: BLOOD SPECIMENOrdering Facility: [facility] Address: [address] [address] Performed By: #### 2 4323-8 ####[facility] LABCLIA [id number] [place] [address] AST [Catalytic activity/Vol] 11 U/L Low 13-35 [facility] Comment on above: Order Comment: Speci men Type: BLOOD SPECIMENOrdering Facility: [facility] Address: [address] [place] [address] Performed By: #### 2 4323-8 ####[facility] LABCLIA [id number] [place] [address] Bilirubin [Mass/Vol] 0.3 mg/dL Normal 0.2-1.3 [facility] Comment on above: Order Comment: Speci men Type: BLOOD SPECIMENOrdering Facility: [facility] Address: [address] [place] [address] Performed By: #### 2 4323-8 ####[facility] LABCLIA [id number] [place] [address] Calcium [Mass/Vol] 10.2 mg/dL Normal 8.5-10.2 [facility] Comment on above: Order Comment: Speci men Type: BLOOD SPECIMENOrdering Facility: [facility] Address: [address] [place] [address] Performed By: #### 2 4323-8 ####[facility] LABCLIA [id number] [place] [address] Chloride [Moles/Vol] 98 mmol/L Normal 97-105 [facility] Comment on above: Order Comment: Speci men Type: BLOOD SPECIMENOrdering Facility: [facility] Address: [address] [place] [address] Performed By: #### 2 4323-8 ####[facility] LABCLIA [id number] [place] [address] CO2 [Moles/Vol] 31 mmol/L High 22-30 [facility] Comment on above: Order Comment: Speci men Type: BLOOD SPECIMENOrdering Facility: [facility] Address: [address] [id number] Performed By: #### 2 4323-8 ####[facility] LABCLIA [id number] [place] [address] Creatinine [Mass/Vol] 1.25 mg/dL High 0.58-0.96 [facility] Comment on above: Order Comment: Speci men Type: BLOOD SPECIMENOrdering Facility: [facility] Address: [address] [address] Performed By: #### 2 4323-8 ####[facility] LABCLIA [id number] [place] [address] ESTIMATED GLOMERULAR FILTRATION RATE 44 mL/min/1.73m??? Low >=60 [facility] Comment on above: Order Comment: Speci men Type: BLOOD SPECIMENOrdering Facility: [facility] Address: [address] [place] [address] Result Comment: Ramila mated Glomerular Filtration Rate [...] actual GFR. Performed By: #### 2 4323-8 ####[facility] LABCLIA [id number] [place] [address] Glucose [Mass/Vol] 285 mg/dL High 74-99 [facility] Comment on above: Order Comment: Speci men Type: BLOOD SPECIMENOrdering Facility: [facility] Address: [address] [address] Result Comment: The [place] Diabetes Association (ADA) provides guidance for cutoff [...] Standards of Medical Care in Diabetes 2016, [place] Diabetes Association. Diabetes Care. 2016.39(Suppl 1). Performed By: #### 2 4323-8 ####[facility] LABCLIA [id number] [place] [address] Potassium [Moles/Vol] 3.7 mmol/L Normal 3.7-5.1 [facility] Comment on above: Order Comment: Speci men Type: BLOOD SPECIMENOrdering Facility: [facility] Address: [address] [place] [address] Performed By: #### 2 4323-8 ####[facility] LABCLIA [id number] [place] [address] Protein [Mass/Vol] 7.3 g/dL Normal 6.3-8.0 [facility] Comment on above: Order Comment: Speci men Type: BLOOD SPECIMENOrdering Facility: [facility] Address: [address] [place] [address] Performed By: #### 2 4323-8 ####[facility] LABCLIA [id number] [place] [address] Sodium [Moles/Vol] 140 mmol/L Normal 136-144 [facility] Comment on above: Order Comment: Speci men Type: BLOOD SPECIMENOrdering Facility: [facility] Address: [address] [address] Performed By: #### 2 4323-8 ####[facility] LABCLIA [id number] [place] [address] Urea nitrogen [Mass/Vol] 33 mg/dL High 7-21 [facility] Comment on above: Order Comment: Speci men Type: BLOOD SPECIMENOrdering Facility: [facility] Address: [address] [place], [place] [id number] Performed By: #### 2 4323-8 ####[facility] LABCLIA [id number] [place] [address] Consultation Noteon 02-15-20 23 Consultation Note [id number]#1.0 0CD:127 Normal [facility] Comment on above: Other Comment: TRACEY RUTH CRR CULTURE URINEon 01-19-2023 CULTURE URINE Culture Observations : VERY LIGHT GROWTH OF MIXED GENITAL SAGE. NO POTENTIAL PATHOGENS SEEN. Normal [facility] Comment on above: Performed By: #### U RCX ####[facility] [address] [address]Dr. Omid Bowden UA RANDOM W/MICROSCOPICon BACTERIA TRACE Abnormal NONE SEEN [facility] Comment on above: Performed By: #### H GB #### [facility] [address] [place] [address] Dr. Omid Bowden Bilirubin Ql (U) Negative Normal NEGATIVE The [facility] Comment on above: Performed By: #### H GB #### [facility] [address] [place] [address] Dr. Omid Bowden CAST NONE SEEN Normal NONE SEEN [facility] Comment on above: Performed By: #### H GB #### [facility] [address] [place] [address] Dr. Omid Bowden Clarity (U) CLEAR Normal CLEAR [facility] Comment on above: Performed By: #### H GB #### [facility] [address] [place] [address] Dr. Omid Bowden Color (U) LT. YELLOW Normal YELLOW [facility] Comment on above: Performed By: #### H GB #### [facility] [address] [place] [address] Dr. Omid Bowden Crystals LM Nom (Urine sed) NONE SEEN Normal NONE SEEN [facility] Comment on above: Performed By: #### H GB #### [facility] [address] [place] [address] Dr. Omid Bowden Epithelial cells LM Ql (Urine sed) RARE Normal NONE SEEN /RARE [facility] Comment on above: Performed By: #### H GB #### [facility] [address] [place] [address] Dr. Omid Bowden Glucose Ql (U) Negative Normal NEGATIVE [facility] Comment on above: Performed By: #### H GB #### [facility] [address] [address] [address] Omid Bowden Hemoglobin Ql (U) Negative Normal NEGATIVE [facility] Comment on above: Performed By: #### H GB #### [facility] [address] [place] [address] Dr. Omid Bowden Ketones Ql (U) Negative Normal NEGATIVE [facility] Comment on above: Performed By: #### H GB #### [facility] [address] [place] [address] Dr. Omid Bowden LEUKOCYTES SMALL Abnormal NEGATIVE [facility] Comment on above: Performed By: #### H GB #### [facility] [address] [place] [address] Dr. Omid Bowden MUCOUS NONE SEEN Normal NONE SEEN [facility] Comment on above: Performed By: #### H GB #### [facility] [address] [place] [address] Dr. Omid Bowden Nitrite Ql (U) Negative Normal NEGATIVE [facility] Comment on above: Performed By: #### H GB #### [facility] [address] [place] [address] Dr. Omid Bowden pH (U) 6.0 [pH] Normal 5-9 [facility] Comment on above: Performed By: #### H GB #### [facility] [address] [place] [address] Dr. Omid Bowden RBC 0-2 Normal 0-2 [facility] Comment on above: Performed By: #### H GB #### [facility] [address] [place] [address] Dr. Omid Bowden SPEC GRAVITY <=1.005 Abnormal 1.005-<=1.0 25 [facility] Comment on above: Performed By: #### H GB #### [facility] [address] [address] [address] Omid Bowden UA PROTEIN Negative Normal NEGATIVE/ TRACE [facility] Comment on above: Performed By: #### H GB #### [facility] [address] [address] [address] Omid Bowden Urobilinogen Qn (U) 0.2 {Jose'U}/dL Normal 0.2 - 1. 0 [facility] Comment on above: Performed By: #### H GB #### [facility] [address] [address] [address] Omid Bowden WBC 0-2 Abnormal NONE SEEN [facility] Comment on above: Performed By: #### H GB #### [facility] [address] [address] [address] Omid Bowden Creatinine [Mass/volume] in Serum or PlasmaOrdered By: Christiano Gonzales on 11-29-2022 Creatinine [Mass/Vol] 1.37 mg/dL 0.60-1.20 [facility] - Chemistry and C hemistry - challengeOrdered By: Christiano Gonzales on 11-29-2022 GFR/1.73 sq M.predicted MDRD (S/P/Bld) [Vol rate/Area] 39.034 mL/min/{1.73_m2} [facility] No Panel InformationOrdered By: Christiano Gonzales on 11-29-2022 Pharmacy Creatinine Clearance (Chem 31.71 [facility] Urea nitrogen [Mass/volume] in Serum or PlasmaOrdered By: Christiano Gonzales on 11-29-2022 Urea nitrogen [Mass/Vol] 35 mg/dL 7-25 [facility] Surgical Pathologyon 023 Surgical Pathology (NOTE) [...] SURGICAL PATHOLOGY CONSULTATION Patient Name: HARMAN MCLEOD [facility] Rec: [id number] Path Number: [id number] [facility] ANATOMIC PATHOLOGY [address] [place] [id number] Normal [facility] Comment on above: Performed By: #### P PPVS #### [facility] [address] [place] [address] [id number] Towel Hemmer: Fidel Hylton MD Ambulatory Visit Summaryon 0 [...] and diastolic (congestive) heart failure Atherosclerosis of cocopah artery of extremity BMI 36.0-36.9,adult Brain stem [...] CARDONA, DANIEL Jose Only if needed [address] [facility] [place] [address]- Additional Instructions: Problem List/Past Medical History Ongoing 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 Normal [facility] Comment on above: Result Comment: Elec tronically Signed By: CHELSI CARDONA, Iliana Alvarez\Date and Time Signed: 11/22/22 15:17 EDT Covid-19 PCR (CVDTB)on SARS-CoV-2 (COVID-19) RNA MARII+probe Ql (Unsp spec) Not detected Normal NOT DETECTED [facility] Comment on above: Result Comment: When [...] for this test is supported by the Utility Forester of Health and Human Service's declaration that [...] used). Performed By: #### H GB #### [facility] [address] [address] [address] Omid Bowden INFLUENZA A AND B AGon 11-16 [facility] SEE BELOW Normal [facility] Comment on above: Result Comment: Nega tive for Flu A protein angiten. Infection due to Flu A cannot be ruled out. Flu A angiten in the sample may be below the detection limit of the test. Performed By: #### I NFLUAB ####[facility] [address] [address]DrMedardo Bowden INFLUBNEGH SEE BELOW Normal [facility] Comment on above: Result Comment: Nega tive for Flu B protein antigen. Infection due to Flu B cannot be ruled out. Flu B antigen in the sample may be below the detection limit of the test. Performed By: #### I NFLUAB ####[facility] [address] [address]DrMedardo Bowden INFLUENZA A AG Negative Normal NEGATIVE SEE COMMENT [facility] Comment on above: Performed By: #### I NFLUAB ####[facility] [address] [place], [place] [address]DrMedardo Bowden INFLUENZA B AG Negative Normal NEGATIVE SEE COMMENT [facility] Comment on above: Performed By: #### I NFLUAB ####[facility] [address] [place], [place] [address]Dr. Omid Bowden CNOVSPon 11-09-2022 CNOVSP Visit (SP) Office ([facility]) HARMAN MCLEOD ([id number]) 1940 F Date Time Provider Department 11/09/22 2:00 PM [facility]ACE STONE During your visit today, we recorded the following information about you: Temperature Pulse Respiration Blood pressure 97.1 degrees 66/minute 18/minute 142/72 Weight Height 84.7 kg 1.549 m Wallace Stone MD 11/09/2022 2:24 PM Signed PATIENT NAME: Harman Mcleod CLINIC NO.: [id number] ATTENDING PHYSICIAN: Wallace Stone MD DATE OF SERVICE: November 09, [address] Banks referring provider defined for this encounter. here is an update on a follow up visit on female Harman Mcleod at the clinic 11/09/2022 Diagnosis: T1b, N0, M0- R breast, Tumor 9 mm, Grade 2, Margins negative, Negative LVI, 2 SNL negative, ER and NH >95% positive, Her2 IHC 1+ Treatment History: [...] LABS: Gluc (more content not included)... Normal [facility] CNPNon 11-09-2022 CNPN Telephone (NCCAP) HARMAN MCLEOD ([id number]) 1940 F Date Time Provider Department 11/09/22 WALL[facility] STONE [facility] During your visit today, we recorded the following information about you: Carlos Brooks 11/09/2022 2:45 PM Signed Vascular Consult [facility] [place] Previous patient of Dr. Mendez 3 years or more. Janeth/Dudley: Can you please refer patient and follow up? Thanks! Carlos Pereira Pss 11/10/2022 8:46 AM Signed Janeth: Information ready for you. Adriana Ko [facility] 11/10/2022 9:38 AM Signed Records faxed. Adriana Burnham 11/16/2022 8:42 AM Signed Called Vascular office [...] Fully Assessed Reason for Visit: Referral Information [5056] Cmt: Vascular Consult Prescriptions as of 11/16/2022 [...] daily at bedtime. Cut in half - Mcovu-8-NIG-EPA-Fish Oil 1,000 mg (120 mg-180 mg) cap Take 2 g by mouth twice daily. - isosorbide mononitrate ER (IMDUR) 60 mg 24 hr tablet Take 60 mg by mouth twice daily. 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 Normal [facility] Comment on above: Result Comment: Elec [...] Iliana Ramirez Where: General Surgery Chelsi/Angelita Victor [facility] General Surgery Office/Clini c Noteon 11-04-2022 [...] and diastolic (congestive) heart failure Atherosclerosis of cocopah artery of extremity BMI 36.0-36.9,adult Brain stem [...] Family Histor (more content not included)... Normal [facility] Comment on above: Result Comment: Elec [...] by: MIGUELITO TELLEZ Date: 2022-11-02 17:17 Normal [facility] Pathology Noteon 10-26-2022 Pathology Note [id number]#1.0 0CD:127 Normal [facility] Ambulatory Visit Summaryon 0 10-25-2022 Ambulatory [...] Iliana GAGNON MD Where: General Surgery Nill/Angelita Victor [facility] General Surgery Office/Clini c Noteon 10-25-2022 [...] and diastolic (congestive) heart failure Atherosclerosis of cocopah artery of extremity BMI 36.0-36.9,adult Brain stem [...] disease: Mo (more content not included)... Normal [facility] Comment on above: Result Comment: Elec tronically Signed By: CHELSI CARDONA, Iliana Alvarez\Date and Time Signed: 10/25/22 16:13 EST Operative Reporton 3 Operative Report [id number] 0CD:127 Normal [facility] RAD - Ultrasound Reporton RAD - Ultrasound Report [id number]#1.0 0CD:127 Normal [facility] NM SENTNL NODEon 10-19-2022 NM SENTNL [...] by: KRISTIN JAQUEZ Date: 2022-10-19 10:41 Normal [facility] POINT OF CARE GLUCOSEon Glucose [Mass/Vol] 153 mg/dL Critically high 74-106 T [facility] Comment on above: Performed By: #### P OCGLUC #### [facility] [address] [place] [address] Dr. Omid Bowden RAD - MISCon 10-19-2022 RAD - MISC [id number]#1.0 0CD:127 Normal [facility] RAD - MISC [id number] 0CD:127 Normal [facility] RAD - Ultrasound Reporton RAD - Ultrasound Report [id number] 0CD:127 Normal [facility] RAD - Ultrasound Report [id number] 0CD:127 Normal [facility] US BREAST SPECIMENon 023 US BREAST SPECIMEN Patient: HARMAN MCLEOD Exam Date: 10/19/2022 : 1940 Gender:F Ordering : DR ILIANA GAGNON . Admission #: [id number] Family : Order #: [id number] CLICK HERE TO VIEW EXAM RADIOLOGY REPORT PROCEDURE: US BREAST SPECIMEN COMPARISON: None. INDICATIONS: Specimen from breast FINDINGS: Breast specimen demonstrates inclusion of the targeted mass as well as the micro clip marker CONCLUSION: Targeted mass and micro clip marker included within the specimen Dictated by: Judson Bauman MD on 10/19/2022 at 11:46 Approved by: Judson Bauman MD on 10/19/2022 at 11:47 Normal [facility] US GUIDE LOCAL BREAST RTon 0 10-19-2022 US GUIDE LOCAL BREAST RT Patient: HARMAN MCLEOD Exam Date: 10/19/2022 : 1940 Gender:F Ordering : DR ILIANA GAGNON . Admission #: [id number] Family : Order #: [id number] CLICK HERE TO VIEW EXAM RADIOLOGY REPORT [...] clip marker LOCATION: Right breast 9 NEEDLE: [employer] spring hook; 20 g by 5 cm needle and wire. MEDICATION: 6 cubic cm Superficial and deep buffered 1% lidocaine. COMPLICATIONS: None. CONCLUSION: Technically successful hookwire localization. Dictated by: Judson Bauman MD on 10/19/2022 at 09:04 Approved by: Judson Bauman MD on 10/19/2022 at 09:05 Normal [facility] US SENTINEL NODEon US SENTINEL NODE [...] by: JUDSON BAUMAN Date: 2022-10-19 08:59 Normal [facility] RAD - MISCon 10-17-2022 RAD - MISC [id number]#1.0 0CD:127 Normal [facility] CBC AUTO DIFFon 10-11-2022 BASO # 0.0 103/ul Normal 0.0-0.1 [facility] Comment on above: Performed By: #### H GB #### [facility] [address] [place] [address] Dr. Omid Bowden Basophils/100 WBC (Bld) 0.2 % Normal 0.2-2.0 [facility] Comment on above: Performed By: #### H GB #### [facility] [address] [place] [address] Dr. Omid Bowden EO # 0.0 103/ul Normal 0.0-0.7 [facility] Comment on above: Performed By: #### H GB #### [facility] [address] [place] [address] Dr. Omid Bowden Eosinophils/100 WBC (Bld) 0.3 % Critically low 0.9-7.0 [facility] Comment on above: Performed By: #### H GB #### [facility] [address] [place] [address] Dr. Omid Bowden Erythrocyte distribution width (RBC) [Ratio] 13.7 % Normal 11.0-15.0 [facility] Comment on above: Performed By: #### H GB #### [facility] [address] [place] [address] Dr. Omid Bowden Hematocrit (Bld) [Volume fraction] 39.6 % Normal 36.0-48.0 [facility] Comment on above: Performed By: #### H GB #### [facility] [address] [place] [address] Dr. Omid Bowden Hemoglobin (Bld) [Mass/Vol] 12.3 g/dL Normal 12.0-16.0 [facility] Comment on above: Performed By: #### H GB #### [facility] [address] [place] [address] Dr. Omid Bowden IG # 0.06 10e3/ul Critically high 0.00-0.03 [facility] Comment on above: Performed By: #### H GB #### [facility] [address] [place] [address] Dr. Omid Bowden IG % 0.5 % Normal 0.0-0.5 [facility] Comment on above: Performed By: #### H GB #### [facility] [address] [place] [address] Dr. Omid Bowden LYMPH # 2.9 103/ul Normal 1.2-3.8 [facility] Comment on above: Performed By: #### H GB #### [facility] [address] [place] [address] Dr. Omid Bowden Lymphocytes/100 WBC (Bld) 26.2 % Normal 20.5-60.0 [facility] Comment on above: Performed By: #### H GB #### [facility] [address] [place] [address] Dr. Omid Bowden MANUAL DIFF REQ NO Normal [facility] Comment on above: Performed By: #### H GB #### [facility] [address] [place] [address] Dr. Omid Bowden MCH (RBC) [Entitic mass] 28.3 pg Normal 26.7-34.0 [facility] Comment on above: Performed By: #### H GB #### [facility] [address] [place] [address] Dr. Omid Bowden MCHC (RBC) [Mass/Vol] 31.1 g/dL Normal 29.9-35.2 [facility] Comment on above: Performed By: #### H GB #### [facility] [address] [place] [address] Dr. Omid Bowden MCV (RBC) [Entitic vol] 91.2 fL Normal 81.0-99.0 [facility] Comment on above: Performed By: #### H GB #### [facility] [address] [place] [address] Dr. Omid Bowden MONO # 0.9 103/ul Critically high 0.3-0.8 [facility] Comment on above: Performed By: #### H GB #### [facility] [address] [place] [address] Dr. Omid Bowden Monocytes/100 WBC (Bld) 8.3 % Normal 1.7-12.0 [facility] Comment on above: Performed By: #### H GB #### [facility] [address] [place] [address] Dr. Omid Bowden NEUT # 7.0 103/ul Critically high 1.4-6.5 [facility] Comment on above: Performed By: #### H GB #### [facility] [address] [address] [address] Omid Bowden Neutrophils/100 WBC (Bld) 64.5 % Normal 43.0-75.0 [facility] Comment on above: Performed By: #### H GB #### [facility] [address] [address] [address] Omid Bowden Platelet mean volume (Bld) [Entitic vol] 9.2 fL Critically low 9.5-13.5 [facility] Comment on above: Performed By: #### H GB #### [facility] [address] [place] [address] Dr. Omid Bowden PLT 346 103/ul Normal 150-450 [facility] Comment on above: Performed By: #### H GB #### [facility] [address] [address] [address] Omid Bowden RBC 4.34 106/ul Normal 4.20-5.40 [facility] Comment on above: Performed By: #### H GB #### [facility] [address] [address] [address] Omid Bowden WBC 10.9 103/ul Normal 4.0-11.0 [facility] Comment on above: Performed By: #### H GB #### [facility] [address] [address] [address] Omid Bowden PROF CHEM 8 (BAS METB)on Anion gap [Moles/Vol] 11.0 mmol/L Normal [facility] Comment on above: Performed By: #### L IPID, BMP #### [facility] [address] [address] [address] Omid Bowden Calcium [Mass/Vol] 9.6 mg/dL Normal 8.5-10.1 [facility] Comment on above: Performed By: #### L IPID, BMP #### [facility] [address] [address] [address] Omid Bowden Chloride [Moles/Vol] 99 mmol/L Normal 98-107 [facility] Comment on above: Performed By: #### L IPID, BMP #### [facility] [address] [address] [address] Omid Bowden CO2 [Moles/Vol] 32.0 mmol/L Normal 21.0-32.0 [facility] Comment on above: Performed By: #### L IPID, BMP #### [facility] [address] [place] [address] Dr. Omid Bowden Creatinine [Mass/Vol] 1.03 mg/dL Critically high 0.55-1.02 [facility] Comment on above: Performed By: #### L IPID, BMP #### [facility] [address] [place] [address] Dr. Omid Bowden EGFR-AF SPANISH >60 Normal >=60 [facility] Comment on above: Performed By: #### L IPID, BMP #### [facility] [address] [place] [address] Dr. Omid Bowden EGFR-NON AF SPANISH 52 mL/min/1.73m2 Critically low >=60 [facility] Comment on above: Performed By: #### L IPID, BMP #### [facility] [address] [place] [address] Dr. Omid Bowden Glucose [Mass/Vol] 94 mg/dL Normal 74-106 [facility] Comment on above: Performed By: #### L IPID, BMP #### [facility] [address] [place] [address] Dr. Omid Bowden Potassium [Moles/Vol] 4.0 mmol/L Normal 3.5-5.1 [facility] Comment on above: Performed By: #### L IPID, BMP #### [facility] [address] [place] [address] Dr. Omid Bowden Sodium [Moles/Vol] 138 mmol/L Normal 136-145 [facility] Comment on above: Performed By: #### L IPID, BMP #### [facility] [address] [place] [address] Dr. Omid Bowden Urea nitrogen [Mass/Vol] 28.0 mg/dL Critically high 7.0-18.0 [facility] Comment on above: Performed By: #### L IPID, BMP #### [facility] [address] [address] [address] Omid Bowden Urea nitrogen/Creatinine [Mass ratio] 27.2 mg/mg Normal [facility] Comment on above: Performed By: #### L IPID, BMP #### [facility] [address] [address] [address] Omid Bowden PROTIMEon 10-11-2022 INR Coag (PPP) [Relative time] 0.99 {INR} Normal [facility] Comment on above: Performed By: #### H GB #### [facility] [address] [place] [address] Dr. Omid Bowden INR GUIDELINES SEE BELOW Normal [facility] Comment on above: Result Comment: PERLITA RED INR: 2.0 - 3.0 CONDITIONS NOT LISTED BELOW 2.5 - 3.5 FOR PROSTHETIC HEART VALVE REPLACEMENT 2.5 - 3.5 RECURRENT THROMBOSIS Performed By: #### H GB #### [facility] [address] [place] [address] Dr. Omid Bowden PT Coag (PPP) [Time] 10.5 s Normal 9.0-11.6 [facility] Comment on above: Performed By: #### H GB #### [facility] [address] [place] [address] Dr. Omid Bowden PTTon 10-11-2022 aPTT Coag (Bld) [Time] 28.6 s Normal 22.3-36.2 Th [facility] Comment on above: Performed By: #### H GB #### [facility] [address] [place] [address] Dr. Omid Bowden Consultation Noteon 10-06-19 Consultation Note [id number]#1.0 0CD:127 Normal [facility] INSULINon 10-01-2022 Insulin 22.8 uIU/mL Normal 2.6-24.9 [facility] Comment on above: Performed By: #### L IPID, BMP #### [facility] [address] [address] [address] Omid Bowden GLYCOHEMOGLOBIN A1Con 2022 ADA RECOMMENDATION SEE BELOW Normal [facility] Comment on above: Result Comment: ADA RECOMMENDED LIMIT 4.0 - 6.0 ADA THERAPEUTIC TARGET < 7.0 ACTION SUGGESTED > 7.0 Performed By: #### H GB #### [facility] [address] [address] [address] Omid Bowden Glucose [Mass/Vol] 177 mg/dL Normal [facility] Comment on above: Performed By: #### H GB #### [facility] [address] [address] [address] Omid Bowden HbA1c (Bld) [Mass fraction] 7.8 % Critically high 4.5-6.2 [facility] Comment on above: Performed By: #### H GB #### [facility] [address] [address] [address] Omid Bowden PROF 14(COMP METB)on 023 Albumin [Mass/Vol] 3.0 g/dL Critically low 3.4-5.0 Th [facility] Comment on above: Performed By: #### C MP ####[facility] [address] [address]DrMedardo Bowden Albumin/Globulin [Mass ratio] 0.7 {ratio} Normal [facility] Comment on above: Performed By: #### C MP ####[facility] [address] [address]DrMedardo Bowden ALP [Catalytic activity/Vol] 73 U/L Normal 46-116 [facility] Comment on above: Performed By: #### C MP ####[facility] [address] [address]DrMedardo Bowden ALT [Catalytic activity/Vol] 16 U/L Normal 14-59 [facility] Comment on above: Performed By: #### C MP ####[facility] [address] [address]DrMedardo Bowden Anion gap [Moles/Vol] 11.3 mmol/L Normal [facility] Comment on above: Performed By: #### C MP ####[facility] [address] [address]Dr. Omid Kal AST [Catalytic activity/Vol] 14 U/L Critically low 15-37 [facility] Comment on above: Performed By: #### C MP ####[facility] [address] [place], [place] [address]Dr. Aixamegan Kal Bilirubin [Mass/Vol] 0.3 mg/dL Normal 0.2-1.0 [facility] Comment on above: Performed By: #### C MP ####[facility] [address] [place], [place] [address]Dr. Omid Bowden Calcium [Mass/Vol] 9.5 mg/dL Normal 8.5-10.1 [facility] Comment on above: Performed By: #### C MP ####[facility] [address] [place], [place] [address]Dr. Omid Bowden Chloride [Moles/Vol] 102 mmol/L Normal 98-107 [facility] Comment on above: Performed By: #### C MP ####[facility] [address] [place], [place] [address]Dr. Omid Bowden CO2 [Moles/Vol] 31.1 mmol/L Normal 21.0-32.0 [facility] Comment on above: Performed By: #### C MP ####[facility] [address] [place], [place] [address]Dr. Omid Bowden Creatinine [Mass/Vol] 1.28 mg/dL Critically high 0.55-1.02 [facility] Comment on above: Performed By: #### C MP ####[facility] [address] [place], [place] [address]Dr. Omid Bowden EGFR-AF SPANISH 49 mL/min/1.73m2 Critically low >=60 [facility] Comment on above: Performed By: #### C MP ####[facility] [address] [place], [place] [address]Dr. Omid Bowden EGFR-NON AF SPANISH 40 mL/min/1.73m2 Critically low >=60 [facility] Comment on above: Performed By: #### C MP ####[facility] [address] [address]Dr. Aixamegan Kal Globulin (S) [Mass/Vol] 4.4 g/dL Normal [facility] Comment on above: Performed By: #### C MP ####[facility] [address] [place], [place] [address]Dr. Aixamegan Kal Glucose [Mass/Vol] 103 mg/dL Normal 74-106 [facility] Comment on above: Performed By: #### C MP ####[facility] [address] [place], [place] [address]Dr. Omid Bowden Potassium [Moles/Vol] 4.4 mmol/L Normal 3.5-5.1 [facility] Comment on above: Performed By: #### C MP ####[facility] [address] [place], [place] [address]Dr. Aixamegan Bowden Protein [Mass/Vol] 7.4 g/dL Normal 6.4-8.2 [facility] Comment on above: Performed By: #### C MP ####[facility] [address] [place], [place] [address]Dr. Omid Bowden Sodium [Moles/Vol] 140 mmol/L Normal 136-145 [facility] Comment on above: Performed By: #### C MP ####[facility] [address] [place], [place] [address]Dr. Omid Bowden Urea nitrogen [Mass/Vol] 27.0 mg/dL Critically high 7.0-18.0 [facility] Comment on above: Performed By: #### C MP ####[facility] [address] [place], [place] [address]Dr. Omid Bowden Urea nitrogen/Creatinine [Mass ratio] 21.1 mg/mg Normal [facility] Comment on above: Performed By: #### C MP ####[facility] [address] [place], [place] [address]Dr. Omid Bowden Formson 09-29-2022 Forms [id number]#1.0 0CD:127 Normal [facility] Consent for Procedure/Surger yon 09-26-2022 Consent for Procedure/Surgery [id number]#1.0 0CD:127 Normal [facility] Consultation Noteon 09-23-19 Consultation Note [id number]#1.0 0CD:127 Normal [facility] CNOVon 09-22-2022 CNOV Office Visit (RADTSA ) HARMAN MCLEOD ([id number]) 1940 F Date Time Provider Department 09/22/22 1:00 PM MARCIN SHAH During your visit today, we recorded the following information about you: Marcin Shah MD 2022 6:06 AM Addendum Radiation Oncology - New Patient/Consult Note PATIENT NAME: Harman Mcleod PATIENT REQUESTING PHYSICIAN: Dr. 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 PATIENT IDENTIFICATION: This patient was seen in the Department of Radiation Oncology at the [facility] with Marcin Shah MD. She was accompanied today by her family. Final recommendations will be communicated back to the requesting physician by way of the shared medical record, or letter to requesting physician via [place] mail. HISTORY OF PRESENT ILLNESS: Ms. Mcleod is an 82-year-old woman from [place], [place] who was discovered on screening mammogram from July 2022 to have an abnormality within the anterior upper outer quadrant of the right breast. This was confirmed on ultrasound and she underwent stereotactic biopsy on 08/19/2022 with pathology revealing intermediate grade IDC that was ER/NH positive HER2 negative. She has met with [...] tablet crenshaw (more content not included)... Normal [facility] CNOVSPon 09-22-2022 CNOVSP Visit (SP) Office (HEMASA) HARMAN MCLEOD ([id number]) 1940 F Date Time Provider Department 09/22/22 11:30 AM WALLACE STONE During your visit today, we recorded the following information about you: Temperature Pulse Respiration Blood pressure 97.8 degrees 70/minute 16/minute 137/64 Weight Height 84.8 kg 1.549 m Wallace Stone MD 09/22/2022 5:19 PM Signed PATIENT NAME: Harman Mcleod CLINIC NO.: [id number] ATTENDING PHYSICIAN: Wallace Stone MD DATE OF SERVICE: September 22, [address] Iliana aGgnon, thank you for referring Mrs Harman Mcleod [...] provisional grade 1 through 2, ER and NH greater than 95% positive, HER2/holden negative with an IHC score of 1+ and FISH negative at [facility]. This patient was subsequently referred to Dr. Iliana Gagnon for surgical consultation. Patient denies any previous history of abnormal mammograms and or breast biopsy. She has had a recent bone density in [place] and was diagnosed with osteoporosis and started on Prolia as well. Patient has a sister who was diagnosed with breast cancer at the age of 82 and her daughter diagnosed with breast cancer at the age of 37. She quit smoking approximately 4 years ago. 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 She [...] mouth daily at bedtime. Cut in half Xphty-1-NRV-EPA-Fish Oil 1,000 mg (120 mg-180 mg) cap [...] high r (more content not included)... Normal [facility] Destinee 09-22-2022 JENNY Telephone (INDIA) HARSHAHARMAN ([id number]) 1940 F Date Time Provider Department 09/22/22 [...] daily at bedtime. Cut in half - Bwnqd-9-UXG-EPA-Fish Oil 1,000 mg (120 mg-180 mg) cap Take 2 g by mouth twice daily. - isosorbide mononitrate ER (IMDUR) 60 mg 24 hr tablet Take 60 mg by mouth twice daily. 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 Performed By: #### [facility] ####[address] [address]Dr. Omid Bowden INFLUENZA A AND B AGon 09-21 INFLUANEGH SEE BELOW Normal [facility] Comment on above: Result Comment: Nega tive for Flu A protein angiten. Infection due to Flu A cannot be ruled out. Flu A angiten in the sample may be below the detection limit of the test. Performed By: #### I NFLUAB ####[facility] [address] [address]Dr. Omid Bowden INFLUBNEGH SEE BELOW Normal [facility] Comment on above: Result Comment: Nega tive for Flu B protein antigen. Infection due to Flu B cannot be ruled out. Flu B antigen in the sample may be below the detection limit of the test. Performed By: #### I NFLUAB ####[facility] [address] [address]Dr. Omid Bowden INFLUENZA A AG Negative Normal NEGATIVE SEE COMMENT [facility] Comment on above: Performed By: #### I NFLUAB ####[facility] [address] [address]Dr. Omid Bowden INFLUENZA B AG Negative Normal NEGATIVE SEE COMMENT [facility] Comment on above: Performed By: #### I NFLUAB ####[facility] [address] [address]Dr. Omid Bowden LIPID PROFILEon 09-16-2022 CHOL-HDL RATIO NORM SEE BELOW Normal [facility] Comment on above: Result Comment: 3.3 - 4.4 LOW RISK 4.4 - 7.1 AVERAGE RISK 7.1 - 11.0 MODERATE RISK >11.0 HIGH RISK Performed By: #### L IPID, BMP #### [facility] [address] [address] [address] Omid Bowden Cholesterol [Mass/Vol] 210 mg/dL Critically high <=200 [facility] Comment on above: Performed By: #### L IPID, BMP #### [facility] [address] [address] [address] Omid Bowden Cholesterol in HDL [Mass/Vol] 49 mg/dL Normal 40-60 [facility] Comment on above: Performed By: #### L IPID, BMP #### [facility] [address] [address] [address] Omid Bowden Cholesterol in LDL [Mass/Vol] 84.2 mg/dL Normal [facility] Comment on above: Performed By: #### L IPID, BMP #### [facility] [address] [place] [address] Dr. Omid Bowden Cholesterol.total/Chol esterol in HDL [Mass ratio] 4.3 {ratio} Normal [facility] Comment on above: Performed By: #### L IPID, BMP #### [facility] [address] [place] [address] Dr. Omid Bowden HDL NORMAL > or = 60 mg/dl - LO W CARDIOVASCULAR RISK <40 mg/dl - HIGH CARDIOVASCULAR RISK Normal [facility] Comment on above: Performed By: #### L IPID, BMP #### [facility] [address] [place] [address] Dr. Omid Bowden LDL CALC NORMAL SEE BELOW Normal [facility] Comment on above: Result Comment: <100 mg/dl OPTIMAL 100 - 129 mg/dl NEAR OR ABOVE OPTIMAL 130 - 159 mg/dl BORDERLINE HIGH 160 - 189 mg/dl HIGH >190 mg/dl VERY HIGH Performed By: #### L IPID, BMP #### [facility] [address] [place] [address] Dr. Omid Bowden Triglyceride [Mass/Vol] 384 mg/dL Critically high <=150 [facility] Comment on above: Performed By: #### L IPID, BMP #### [facility] [address] [place] [address] Dr. Omid Bowden VLDL CALC 76.8 mg/dL Normal [facility] Comment on above: Performed By: #### L IPID, BMP #### [facility] [address] [place] [address] Dr. Omid Bowden PROF CHEM 8 (BAS METB)on Anion gap [Moles/Vol] 10.8 mmol/L Normal [facility] Comment on above: Performed By: #### L IPID, BMP #### [facility] [address] [address] [address] Omid Bowden Calcium [Mass/Vol] 8.8 mg/dL Normal 8.5-10.1 [facility] Comment on above: Performed By: #### L IPID, BMP #### [facility] [address] [address] [address] Omid Bowden Chloride [Moles/Vol] 98 mmol/L Normal 98-107 [facility] Comment on above: Performed By: #### L IPID, BMP #### [facility] [address] [address] [address] Omid Bowden CO2 [Moles/Vol] 34.5 mmol/L Critically high 21.0-32.0 [facility] Comment on above: Performed By: #### L IPID, BMP #### [facility] [address] [place] [address] Dr. Omid Bowden Creatinine [Mass/Vol] 1.17 mg/dL Critically high 0.55-1.02 [facility] Comment on above: Performed By: #### L IPID, BMP #### [facility] [address] [place] [address] Dr. Omid Bowden EGFR-AF SPANISH 54 mL/min/1.73m2 Critically low >=60 [facility] Comment on above: Performed By: #### L IPID, BMP #### [facility] [address] [place] [address] Dr. Omid Bowden EGFR-NON AF SPANISH 45 mL/min/1.73m2 Critically low >=60 [facility] Comment on above: Performed By: #### L IPID, BMP #### [facility] [address] [address] [address] Omid Bowden Glucose [Mass/Vol] 193 mg/dL Critically high 74-106 [facility] Comment on above: Performed By: #### L IPID, BMP #### [facility] [address] [place] [address] Dr. Omid Bowden Potassium [Moles/Vol] 3.3 mmol/L Critically low 3.5-5.1 [facility] Comment on above: Performed By: #### L IPID, BMP #### [facility] [address] [address] [address] Omid Bowden Sodium [Moles/Vol] 140 mmol/L Normal 136-145 [facility] Comment on above: Performed By: #### L IPID, BMP #### [facility] [address] [address] [address] Omid Bowden Urea nitrogen [Mass/Vol] 31.0 mg/dL Critically high 7.0-18.0 [facility] Comment on above: Performed By: #### L IPID, BMP #### [facility] [address] [address] [address] Omid Bowden Urea nitrogen/Creatinine [Mass ratio] 26.5 mg/mg Normal [facility] Comment on above: Performed By: #### L IPID, BMP #### [facility] [address] [address] [address] Omid Bowden Facesheeton 09-13-2022 Facesheet [id number]#1.0 0CD:127 Normal [facility] Consultation Noteon 09-01-20 Consultation Note [id number]#1.0 0CD:127 Normal [facility] ED Note-Physicianon 09-01-20 ED Note-Physician [id number]#1.0 0CD:127 Normal [facility] Lab Reportson 09-01-2022 Lab Reports [id number]#1.0 0CD:127 Normal [facility] Lab Reports [id number] 0CD:127 Normal [facility] Physician Referralon 022 Physician Referral [id number] 0CD:127 Normal [facility] C. DIFF PCRon 08-23-2022 C. DIFFICILE PCR Negative Normal NEGATIVE [facility] Comment on above: Performed By: #### C DIFPOC ####[facility] [address] [address]Dr. Omid Bowden CBC AUTO DIFFon 08-19-2022 BASO # 0.0 103/ul Normal 0.0-0.1 [facility] Comment on above: Performed By: #### C BC ####[facility] [address] [place], [place] [address]Dr. Omid Kal Basophils/100 WBC (Bld) 0.3 % Normal 0.2-2.0 [facility] Comment on above: Performed By: #### C BC ####[facility] Rxxnjyk[address] [place], [place] [address]Dr. Omid Bowden EO # 0.5 103/ul Normal 0.0-0.7 The [facility] Comment on above: Performed By: #### C BC ####[facility] Oefuagcyhb[address] [place], [place] [address]Dr. Omid Bowden Eosinophils/100 WBC (Bld) 3.2 % Normal 0.9-7.0 The [facility] Comment on above: Performed By: #### C BC ####[facility] Juuhuvjigl[address] [place], [place] [address]Dr. Omid Bowden Erythrocyte distribution width (RBC) [Ratio] 14.1 % Normal 11.0-15.0 The [facility] Comment on above: Performed By: #### C BC ####[facility] Hgvlhxyqiw[address] [place], [place] [address]Dr. Omid Bowden Hematocrit (Bld) [Volume fraction] 36.1 % Normal 36.0-48.0 The [facility] Comment on above: Performed By: #### C BC ####[facility] Edfnbwcoin[address] [place], [place] [address]Dr. Omid Bowden Hemoglobin (Bld) [Mass/Vol] 11.7 g/dL Critically low 12.0-16.0 The [facility] Comment on above: Performed By: #### C BC ####[facility] [address]ae[address] [place] [id number]. Omid Bowden IG # 0.08 10e3/ul Critically high 0.00-0.03 The [facility] Comment on above: Performed By: #### C BC ####[facility] Yxqannnbub[address] [place] [address]Dr. Omid Bowden IG % 0.5 % Normal 0.0-0.5 The [facility] Comment on above: Performed By: #### C BC ####[facility] [address]qkhwmr[address] [place] [address]Dr. Omid Kal LYMPH # 1.2 103/ul Normal 1.2-3.8 The [facility] Comment on above: Performed By: #### C BC ####[facility] Imczhhcgwu[address] [place] [address]Dr. Omid Bowden Lymphocytes/100 WBC (Bld) 7.5 % Critically low 20.5-60.0 The [facility] Comment on above: Performed By: #### C BC ####[facility] Sm[address]jkbosnh[address] [place] [address]Dr. Aixamegan Bowden MANUAL DIFF REQ NO Normal [facility] Comment on above: Performed By: #### C BC ####[facility] [address] [place] [address]Dr. Omid Bowden MCH (RBC) [Entitic mass] 29.2 pg Normal 26.7-34.0 The [facility] Comment on above: Performed By: #### C BC ####[facility] Ykzdnbnxel[address] [place] [address]Dr. Omid Kal MCHC (RBC) [Mass/Vol] 32.4 g/dL Normal 29.9-35.2 The [facility] Comment on above: Performed By: #### C BC ####[facility] [address]fciblid[address] [place] [address]Dr. Omid Kal MCV (RBC) [Entitic vol] 90.0 fL Normal 81.0-99.0 The [facility] Comment on above: Performed By: #### C BC ####[facility] Ribqabdqhy[address] [place] [id number]. Omid Bowden MONO # 1.0 103/ul Critically high 0.3-0.8 The [facility] Comment on above: Performed By: #### C BC ####[facility] Hyqunbodfu[address] [place] [address]Dr. Omid Bowden Monocytes/100 WBC (Bld) 6.8 % Normal 1.7-12.0 The [facility] Comment on above: Performed By: #### C BC ####[facility] Wthkgtshwp[address] [place] [address]Dr. Omid Bowden NEUT # 12.5 103/ul Critically high 1.4-6.5 The [facility] Comment on above: Performed By: #### C BC ####[facility] [address]xtpflx[address] [place] [address]Dr. Omid Bowden Neutrophils/100 WBC (Bld) 81.7 % Critically high 43.0-75.0 The [facility] Comment on above: Performed By: #### C BC ####[facility] Tsnspoudmk[address] [place] [id number]. Omid Bowden Platelet mean volume (Bld) [Entitic vol] 8.9 fL Critically low 9.5-13.5 The [facility] Comment on above: Performed By: #### C BC ####[facility] Lpizcrybvh[address] [place] [id number]. Omid Bowden PLT 252 103/ul Normal 150-450 The [facility] Comment on above: Performed By: #### C BC ####[facility] V[address]rd[address] [place] [address]Dr. Omid Bowden RBC 4.01 106/ul Critically low 4.20-5.40 The [facility] Comment on above: Performed By: #### C BC ####[facility] Ryxjrirmzg[address] [place] [address]Dr. Omid Bowden WBC 15.3 103/ul Critically high 4.0-11.0 The [facility] Comment on above: Performed By: #### C BC ####[facility] Palchecav[address] [place], [place] [address]Dr. Omid Bowden IRONon 08-19-2022 Iron [Mass/Vol] 59.0 ug/dL Normal 50.0-170.0 [facility] Comment on above: Performed By: #### H GB #### [facility] [address] [place], [place] [address] Dr. Omid Bowden MAMMO POST BIOPSY RIGHTon MAMMO POST BIOPSY RIGHT Patient: HARMAN MCLEOD Exam Date: 08/19/2022 : 1940 Gender:F Ordering : DR MATEUS PERRY . Admission #: [id number] Family : Order #: [id number] CLICK HERE TO VIEW EXAM This report [...] Bauman MD on 09/06/2022 at 09:57 Normal [facility] PROTIMEon 08-19-2022 INR Coag (PPP) [Relative time] 0.99 {INR} Normal The [facility] Comment on above: Performed By: #### P T, PTT ####[facility] [address] [place], [place] [address]EgDr. Omid Bowden INR GUIDELINES SEE BELOW Normal [facility] Comment on above: Result Comment: PERLITA RED INR: 2.0 - 3.0 CONDITIONS NOT LISTED BELOW 2.5 - 3.5 FOR PROSTHETIC HEART VALVE REPLACEMENT 2.5 - 3.5 RECURRENT THROMBOSIS Performed By: #### P T, PTT ####[facility] [address] [place], [place] [address]Tu. Omid Bowden PT Coag (PPP) [Time] 10.7 s Normal 9.0-11.6 [facility] Comment on above: Performed By: #### P T, PTT ####[facility] W[address]trvorxa[address] [place], [place] [address]Zj. Omid Bowden PTTon 08-19-2022 aPTT Coag (Bld) [Time] 26.0 s Normal 22.3-36.2 [facility] Comment on above: Performed By: #### P T, PTT ####[facility] [address] [place], [place] [address]Dw. Omid Bowden US VAC ASST BX BRST RT W CLI Jose Maria 08-19-2022 US VAC ASST BX BRST RT W CLIP Patient: HARMAN MCLEOD Exam Date: 08/19/2022 : 1940 Gender:F Ordering : DR MATEUS PERRY . Admission #: [id number] Family : Order #: [id number] CLICK HERE TO VIEW EXAM This report [...] MD on 09/06/2022 at 09:55 Normal The [facility] CULTURE URINEon 08-16-2022 CULTURE URINE Isolate [...] F Nitrofurantoin <=16 S F Normal The [facility] Comment on above: Performed By: #### U RCX ####[facility] [address] [place] [address]Dr. Omid Bowden CARDIAC ADILIA ADMITon 022 CK [Catalytic activity/Vol] 128 U/L Normal 26-192 [facility] Comment on above: Performed By: #### L IPID, BMP #### [facility] [address] [place] [address] [address] Omid Bowden CK.MB [Mass/Vol] 2.88 ng/mL Normal <=3.60 The [facility] Comment on above: Performed By: #### L IPID, BMP #### [facility] [address] [address] [address] Omid Bowden HSTROP 24.1 pg/mL Normal 4.0-51.3 The [facility] Comment on above: Result Comment: CUT- OFF POINTS HAVE BEEN ESTABLISHED BASED ON THE FOURTH UNIVERSAL DEFINITIONS OF MYOCARDIAL INFARCTION. THE UPPER REFERENCE LIMIT (URL) OF TROPONIN, DEFINED THE 99TH PERCENTILE OF cTnI DISTRIBUTION IN A REFERENCE POPULATION, HAS BEEN CONFIRMED THE DECISION THRESHOLD FOR MA DIAGNOSIS. Performed By: #### L IPID, BMP #### [facility] [address] [place] [address] [address] Omid Bowden JACINTA 61 ng/mL Normal 9-82 The [facility] Comment on above: Performed By: #### L IPID, BMP #### [facility] [address] [place] [address] Dr. Omid Bowden CBC AUTO DIFFon 08-14-2022 BASO # 0.0 103/ul Normal 0.0-0.1 [facility] Comment on above: Performed By: #### H GB #### [facility] [address] [place] [address] Dr. Omid Bowden Basophils/100 WBC (Bld) 0.4 % Normal 0.2-2.0 [facility] Comment on above: Performed By: #### H GB #### [facility] [address] [place] [address] Dr. Omid Bowden EO # 0.3 103/ul Normal 0.0-0.7 [facility] Comment on above: Performed By: #### H GB #### [facility] [address] [place] [address] Dr. Omid Bowden Eosinophils/100 WBC (Bld) 2.6 % Normal 0.9-7.0 [facility] Comment on above: Performed By: #### H GB #### [facility] [address] [place] [address] Dr. Omid Bowden Erythrocyte distribution width (RBC) [Ratio] 14.1 % Normal 11.0-15.0 [facility] Comment on above: Performed By: #### H GB #### [facility] [address] [place] [address] Dr. Omid Bowden Hematocrit (Bld) [Volume fraction] 35.5 % Critically low 36.0-48.0 [facility] Comment on above: Performed By: #### H GB #### [facility] [address] [place] [address] Dr. Omid Bowden Hemoglobin (Bld) [Mass/Vol] 11.6 g/dL Critically low 12.0-16.0 [facility] Comment on above: Performed By: #### H GB #### [facility] [address] [place] [address] [address] Omid Bowden IG # 0.06 10e3/ul Critically high 0.00-0.03 [facility] Comment on above: Performed By: #### H GB #### [facility] [address] [place] [address] Dr. Omid Bowden IG % 0.6 % Critically high 0.0-0.5 [facility] Comment on above: Performed By: #### H GB #### [facility] [address] [place] [address] Dr. Omid Bowden LYMPH # 3.4 103/ul Normal 1.2-3.8 [facility] Comment on above: Performed By: #### H GB #### [facility] [address] [place] [address] Dr. Omid Bowden Lymphocytes/100 WBC (Bld) 35.5 % Normal 20.5-60.0 [facility] Comment on above: Performed By: #### H GB #### [facility] [address] [place] [address] Dr. Omid Bowden MANUAL DIFF REQ NO Normal [facility] Comment on above: Performed By: #### H GB #### [facility] [address] [place] [address] Dr. Omid Bowden MCH (RBC) [Entitic mass] 29.5 pg Normal 26.7-34.0 [facility] Comment on above: Performed By: #### H GB #### [facility] [address] [place] [address] Dr. Omid Bowden MCHC (RBC) [Mass/Vol] 32.7 g/dL Normal 29.9-35.2 [facility] Comment on above: Performed By: #### H GB #### [facility] [address] [place] [address] Dr. Omid Bowden MCV (RBC) [Entitic vol] 90.3 fL Normal 81.0-99.0 [facility] Comment on above: Performed By: #### H GB #### [facility] [address] [place] [address] Dr. Omid Bowden MONO # 1.0 103/ul Critically high 0.3-0.8 [facility] Comment on above: Performed By: #### H GB #### [facility] [address] [place] [address] Dr. Omid Bowden Monocytes/100 WBC (Bld) 10.5 % Normal 1.7-12.0 [facility] Comment on above: Performed By: #### H GB #### [facility] [address] [place] [address] Dr. Omid Bowden NEUT # 4.8 103/ul Normal 1.4-6.5 [facility] Comment on above: Performed By: #### H GB #### [facility] [address] [place] [address] Dr. Omid Bowden Neutrophils/100 WBC (Bld) 50.4 % Normal 43.0-75.0 [facility] Comment on above: Performed By: #### H GB #### [facility] [address] [place] [address] Dr. Omid Bowden Platelet mean volume (Bld) [Entitic vol] 9.1 fL Critically low 9.5-13.5 [facility] Comment on above: Performed By: #### H GB #### [facility] [address] [place] [address] Dr. Omid Bowden PLT 276 103/ul Normal 150-450 The [facility] Comment on above: Performed By: #### H GB #### [facility] [address] [place] [address] Dr. Omid Bowden RBC 3.93 106/ul Critically low 4.20-5.40 The [facility] Comment on above: Performed By: #### H GB #### [facility] [address] [place] [address] Dr. Omid Bowden WBC 9.5 103/ul Normal 4.0-11.0 [facility] Comment on above: Performed By: #### H GB #### [facility] [address] [place] [address] Dr. Omid Bowden ER URINE PROFILEon 2 Bilirubin Ql (U) Negative Normal NEGATIVE The [facility] Comment on above: Performed By: #### U MICRO, ERUR ####[facility] [address] [place], [place] [address]Dr. Omid Bowden Clarity (U) CLEAR Normal CLEAR The [facility] Comment on above: Performed By: #### U MICRO, ERUR ####[facility] [address]eb[address] [place], [place] [address]Dr. Omid Bowden Color (U) LT. YELLOW Normal YELLOW The [facility] Comment on above: Performed By: #### U MICRO, ERUR ####[facility] Eufhhowmwc[address] [place], [place] [address]Dr. Omid Bowden ERUAHD A micrscopic examination will be performed if indicated. Normal The [facility] Comment on above: Performed By: #### U MICRO, ERUR ####[facility] Urpfrzvenz[address] [place], [place] [address]Dr. Omid Bowden Glucose Ql (U) Negative Normal NEGATIVE The [facility] Comment on above: Performed By: #### U MICRO, ERUR ####[facility] Qmgftitoyu[address] [place], [place] [address]Dr. Omid Bowden Hemoglobin Ql (U) Negative Normal NEGATIVE The [facility] Comment on above: Performed By: #### U MICRO, ERUR ####[facility] [address]aqmhriy[address] [place], [place] [address]Dr. Omid Bowden Ketones Ql (U) Negative Normal NEGATIVE The [facility] Comment on above: Performed By: #### U MICRO, ERUR ####[facility] Es[address] [place], [place] [address]Dr. mOid Bowden LEUKOCYTES TRACE Abnormal NEGATIVE The [facility] Comment on above: Performed By: #### U MICRO, ERUR ####[facility] Zisgnfktre[address] [place], [place] [address]Dr. Omid Bowden Nitrite Ql (U) Negative Normal NEGATIVE The [facility] Comment on above: Performed By: #### U MICRO, ERUR ####[facility] Znvzrfvtac[address] [place], [place] [address]Dr. Omid Bowden pH (U) 6.0 [pH] Normal 5-9 [facility] Comment on above: Performed By: #### U MICRO, ERUR ####[facility] [address] [place] [address]DrMedardo Bowden SPEC GRAVITY 1.020 Normal 1.005-<=1.0 25 [facility] Comment on above: Performed By: #### U MICRO, ERUR ####[facility] [address] [place] [address]DrMedardo Bowden UA PROTEIN Negative Normal NEGATIVE/ TRACE The [facility] Comment on above: Performed By: #### U MICRO, ERUR ####[facility] [address] [place] [address]Dr. Omid Bowden UR MICRO IND INDICATED Normal [facility] Comment on above: Performed By: #### U MICRO, ERUR ####[facility] T[address]epr[address] [place] [address]Dr. Omid Bowden Urobilinogen Qn (U) 0.2 {Jose'U}/dL Normal 0.2 - 1. 0 [facility] Comment on above: Performed By: #### U MICRO, ERUR ####[facility] [address]str[address] [place] [address]DrMedardo Bowden OCC BLD IMMUNO SCREENon OCCULT BLOOD Negative Normal NEGATIVE [facility] Comment on above: Performed By: #### O BSCRN #### [facility] [address] [address] [address] Omid Bowden PROF CHEM 8 (BAS METB)on Anion gap [Moles/Vol] 5.5 mmol/L Normal [facility] Comment on above: Performed By: #### L IPID, BMP #### [facility] [address] [place] [address] [address] Omid Bowden Calcium [Mass/Vol] 8.6 mg/dL Normal 8.5-10.1 [facility] Comment on above: Performed By: #### L IPID, BMP #### [facility] [address] [place] [address] Dr. Omid Bowden Chloride [Moles/Vol] 103 mmol/L Normal 98-107 [facility] Comment on above: Performed By: #### L IPID, BMP #### [facility] [address] [place] [address] [address] Omid Bowden CO2 [Moles/Vol] 31.8 mmol/L Normal 21.0-32.0 [facility] Comment on above: Performed By: #### L IPID, BMP #### [facility] [address] [place] [address] [address] Omid Bowden Creatinine [Mass/Vol] 0.99 mg/dL Normal 0.55-1.02 [facility] Comment on above: Performed By: #### L IPID, BMP #### [facility] [address] [place] [address] Dr. Omid Bowden EGFR-AF SPANISH >60 Normal >=60 [facility] Comment on above: Performed By: #### L IPID, BMP #### [facility] [address] [place] [address] Dr. Omid Bowden EGFR-NON AF SPANISH 54 mL/min/1.73m2 Critically low >=60 [facility] Comment on above: Performed By: #### L IPID, BMP #### [facility] [address] [place] [address] Dr. Omid Bowden Glucose [Mass/Vol] 112 mg/dL Critically high 74-106 [facility] [place] Comment on above: Performed By: #### L IPID, BMP #### [facility] [address] [place] [address] Dr. Omid Bowden Potassium [Moles/Vol] 3.3 mmol/L Critically low 3.5-5.1 [facility] Comment on above: Performed By: #### L IPID, BMP #### [facility] [address] [place] [address] Dr. Omid Bowden Sodium [Moles/Vol] 137 mmol/L Normal 136-145 [facility] Comment on above: Performed By: #### L IPID, BMP #### [facility] [address] [place] [address] [address] Omid Bowden Urea nitrogen [Mass/Vol] 20.0 mg/dL Critically high 7.0-18.0 The [facility] Comment on above: Performed By: #### L IPID, BMP #### [facility] [address] [place] [address] [address] Omid Bowden Urea nitrogen/Creatinine [Mass ratio] 20.2 mg/mg Normal The [facility] Comment on above: Performed By: #### L IPID, BMP #### [facility] [address] [place] [address] [address] Omid Bowden URINE MICROSCOPIC ONLYon BACTERIA TRACE Abnormal NONE SEEN The [facility] Comment on above: Performed By: #### U MICRO, ERUR ####[facility] [address] [place] [address]Dr. Omid Bowden Bacteria identified Cx Nom (U) INDICATED Normal The [facility] Comment on above: Performed By: #### U MICRO, ERUR ####[facility] [address] [place] [address]Dr. Omid Bowden CAST NONE SEEN Normal NONE SEEN The [facility] Comment on above: Performed By: #### U MICRO, ERUR ####[facility] [address] [place] [address]Dr. Omid Bowden Crystals LM Nom (Urine sed) NONE SEEN Normal NONE SEEN The [facility] Comment on above: Performed By: #### U MICRO, ERUR ####[facility] [address] [place] [address]Dr. Omid Bowden Epithelial cells LM Ql (Urine sed) FEW Abnormal NONE SEEN /RARE The [facility] Comment on above: Performed By: #### U MICRO, ERUR ####[facility] [address] [place] [address]Dr. Omid Bowden MUCOUS NONE SEEN Normal NONE SEEN The [facility] Comment on above: Performed By: #### U MICRO, ERUR ####[facility] [address] [place] [address]DrMedardo Bowden RBC 0-2 Normal 0-2 [facility] Comment on above: Performed By: #### U MICRO, ERUR ####[facility] [address] [place], [place] [address]Xv. Omid Bowden WBC 20-50 Abnormal NONE SEEN The [facility] Comment on above: Performed By: #### U MICRO, ERUR ####[facility] [address]cl[address] [place], [place] [address]Qb. Omid Bowden XR CHEST 1 Von 08-14-2022 [...] HILL BAILON Date: 2022-08-14 00:46 Normal The [facility] Covid-19 PCR (CVDTBH)on SARS-CoV-2 (COVID-19) RNA MARII+probe Ql (Unsp spec) Not detected Normal NOT DETECTED The [facility] Comment on above: Result Comment: When [...] for this test is supported by the Utility [employer] of Health and Human Service's declaration that [...] used). Performed By: #### C VDTBH #### [facility] [address] [place], [place] [address] Dr. Omid Bowden MG MAMM RT DIAG FUon 022 MG MAMM RT DIAG FU Patient: HARMAN MCLEOD Exam Date: 08/08/2022 : 1940 Gender:F Ordering : DR MATEUS PERRY . Admission #: [id number] Family : Order #: [id number] CLICK HERE TO VIEW EXAM RADIOLOGY REPORT [...] uterine cancer at age 39. LOCATION: The [facility] BREAST COMPOSITION: Scattered areas fibroglandular density. [...] M.D. on 08/08/2022 at 15:28 Normal The [facility] PROF CHEM 8 (BAS METB)on Anion gap [Moles/Vol] 9.3 mmol/L Normal [facility] Comment on above: Performed By: #### B MP #### [facility] [address] [place] [address] Dr. Omid Bowden Calcium [Mass/Vol] 8.1 mg/dL Critically low 8.5-10.1 [facility] Comment on above: Performed By: #### B MP #### [facility] [address] [place] [address] Dr. Omid Bowden Chloride [Moles/Vol] 100 mmol/L Normal 98-107 [facility] Comment on above: Performed By: #### B MP #### [facility] [address] [place] [address] [address] Omid Bowden CO2 [Moles/Vol] 31.9 mmol/L Normal 21.0-32.0 [facility] Comment on above: Performed By: #### B MP #### [facility] [address] [place] [address] [address] Omid Bowden Creatinine [Mass/Vol] 1.25 mg/dL Critically high 0.55-1.02 [facility] Comment on above: Performed By: #### B MP #### [facility] [address] [place] [address] Dr. Omid Bowden EGFR-AF SPANISH 50 mL/min/1.73m2 Critically low >=60 [facility] Comment on above: Performed By: #### B MP #### [facility] [address] [place] [address] Dr. Omid Bowden EGFR-NON AF SPANISH 41 mL/min/1.73m2 Critically low >=60 [facility] Comment on above: Performed By: #### B MP #### [facility] [address] [place] [address] Dr. Omid Bowden Glucose [Mass/Vol] 215 mg/dL Critically high 74-106 [facility] [place] Comment on above: Performed By: #### B MP #### [facility] [address] [address] [address] Omid Bowden Potassium [Moles/Vol] 3.2 mmol/L Critically low 3.5-5.1 [facility] Comment on above: Performed By: #### B MP #### [facility] [address] [address] [address] Omid Bowden Sodium [Moles/Vol] 138 mmol/L Normal 136-145 [facility] Comment on above: Performed By: #### B MP #### [facility] [address] [place], [place] [address] Dr. Omid Bowden Urea nitrogen [Mass/Vol] 32.0 mg/dL Critically high 7.0-18.0 [facility] Comment on above: Performed By: #### B MP #### [facility] [address] [place], [place] [address] Dr. Omid Bowden Urea nitrogen/Creatinine [Mass ratio] 25.6 mg/mg Normal [facility] Comment on above: Performed By: #### B MP #### [facility] [address] [place], [place] [address] Dr. Omid Bowden US BREAST RIGHT LIMITEDon US BREAST RIGHT LIMITED Patient: HARMAN MCLEOD Exam Date: 08/08/2022 : 1940 Gender:F Ordering : DR MATEUS PERRY . Admission #: [id number] Family : Order #: [id number] CLICK HERE TO VIEW EXAM RADIOLOGY REPORT [...] uterine cancer at age 39. LOCATION: [facility] BREAST COMPOSITION: Scattered areas fibroglandular density. [...] George M.D. on 08/08/2022 at 15:28 Normal [facility] CALCIUMon 08-02-2022 Calcium [Mass/Vol] 8.9 mg/dL Normal 8.5-10.1 [facility] Comment on above: Performed By: #### H GB #### [facility] [address] [address] [address] Omid Bowden CREATININEon 08-02-2022 Creatinine [Mass/Vol] 1.19 mg/dL Critically high 0.55-1.02 [facility] Comment on above: Performed By: #### H GB #### [facility] [address] [address] [address] Omid Bowden EGFR-AF SPANISH 53 mL/min/1.73m2 Critically low >=60 [facility] Comment on above: Performed By: #### H GB #### [facility] [address] [address] [address] Omid Bowden EGFR-NON AF SPANISH 44 mL/min/1.73m2 Critically low >=60 [facility] Comment on above: Performed By: #### H GB #### [facility] [address] [address] [address] Omid Bowden MG MAMM SCREEN 3D DAVID CADon 07-19-2022 MG MAMM SCREEN 3D DAVID CAD Patient: HARMAN MCLEOD Exam Date: 07/19/2022 : 1940 Gender:F Ordering : DR MATEUS PERRY . Admission #: [id number] Family : Order #: [id number] CLICK HERE TO VIEW EXAM RADIOLOGY REPORT [...] uterine cancer at age 39. LOCATION: [facility] BREAST COMPOSITION: Scattered areas fibroglandular density. [...] Bauman MD on 07/20/2022 at 07:33 Normal [facility] XR DEXA BONE DENSITYon 07-19 XR [...] by: JUDSON BAUMAN Date: 2022-07-19 20:17 Normal [facility] CALCIUM, IONIC (POC)on 06-28 POC Ionized Calcium 1.21 mmol/L 1.15 - 1 .33 mmol/L [facility] CH[facility] (POC)on 06-28-2022 Chloride [Moles/Vol] 103 mmol/L 98 - 10 7 mmol/L [facility] [employer] Creatinine W/GFR Point of Ca reon 06-28-2022 Creatinine [Mass/Vol] 0.93 mg/dL 0.51 - 1.19 mg/dL [facility] eGFR, POC mL/min/1.[address] [facility] Comment on above: Effective Jun 13, [...] 1.56 mmol/L High 0.56 - 1.39 mmol/L [facility] No Panel Informationon 06-28 Interpretation and review of laboratory results Abnormal [facility] POC Glucose Fingerstickon Glucose [Mass/Vol] 135 mg/dL High 65 - 105 mg/dL [facility] Interpretation and review of laboratory results Abnormal [facility] POCT Glucoseon 06-28-2022 Glucose [Mass/Vol] 147 mg/dL High 74 - 100 mg/dL [facility] POCT urea (BUN)on 06-28-2022 Urea nitrogen [Mass/Vol] 20 mg/dL 8 - 26 mg/dL [facility] POTASSIUM (POC)on 06-28-2022 Potassium [Moles/Vol] 3.7 mmol/L 3.5 - 4.5 mmol/L [facility] SODIUM (POC)on 06-28-2022 Sodium [Moles/Vol] 141 mmol/L 138 - 146 mmol/L [facility] PROF CHEM 8 (BAS METB)on Anion gap [Moles/Vol] 9.0 mmol/L Normal [facility] Comment on above: Performed By: #### B MP ####[facility] [address] [id number]. Omid Bowden Calcium [Mass/Vol] 9.0 mg/dL Normal 8.5-10.1 [facility] Comment on above: Performed By: #### B MP ####[facility] [address] [place], [place] [address]ByMedardo Bowden Chloride [Moles/Vol] 98 mmol/L Normal 98-107 [facility] Comment on above: Performed By: #### B MP ####[facility] [address] [place], [place] [address]Dr. Omid Bowden CO2 [Moles/Vol] 33.2 mmol/L Critically high 21.0-32.0 [facility] Comment on above: Performed By: #### B MP ####[facility] [address] [place], [place] [address]Dr. Omid Bowden Creatinine [Mass/Vol] 1.32 mg/dL Critically high 0.55-1.02 [facility] Comment on above: Performed By: #### B MP ####[facility] [address] [place], [place] [address]Dr. Omid Bowden EGFR-AF SPANISH 47 mL/min/1.73m2 Critically low >=60 [facility] Comment on above: Performed By: #### B MP ####[facility] [address] [place], [place] [address]Dr. Omid Bowden EGFR-NON AF SPANISH 39 mL/min/1.73m2 Critically low >=60 [facility] Comment on above: Performed By: #### B MP ####[facility] [address] [place], [place] [address]Dr. Omid Bowden Glucose [Mass/Vol] 220 mg/dL Critically high 74-106 [facility] [place] Comment on above: Performed By: #### B MP ####[facility] [address] [place], [place] [address]DrMedardo Bowden Potassium [Moles/Vol] 3.2 mmol/L Critically low 3.5-5.1 [facility] Comment on above: Performed By: #### B MP ####[facility] [address] [place], [place] [address]Dr. Omid Bowden Sodium [Moles/Vol] 137 mmol/L Normal 136-145 [facility] Comment on above: Performed By: #### B MP ####[facility] [address] [place], [place] [address]DrMedardo Bowden Urea nitrogen [Mass/Vol] 31.0 mg/dL Critically high 7.0-18.0 [facility] Comment on above: Performed By: #### B MP ####[facility] [address] [place], [place] [address]Lv. Omid Bowden Urea nitrogen/Creatinine [Mass ratio] 23.5 mg/mg Normal [facility] Comment on above: Performed By: #### B MP ####[facility] [address] [place], [place] [address]Le. Omid Bowden ECHOCARDIO M/2D COMPLETEon 0 04-12-2022 ECHOCARDIO M/2D COMPLETE Patient: HARMAN MCLEOD Exam Date: 04/12/2022 : 1940 Gender:F Ordering : SONALI [facility] Admission #: [id number] Family : Order #: [id number] CLICK HERE TO VIEW EXAM ECHOCARDIOGRAM REPORT [...] Keyes M.D. on 04/12/2022 at 19:15 Normal [facility] PROF CHEM 8 (BAS METB)on Anion gap [Moles/Vol] 12.4 mmol/L Normal [facility] Comment on above: Performed By: #### B MP ####[facility] [address] [address]Dr. Omid Bowden Calcium [Mass/Vol] 9.1 mg/dL Normal 8.5-10.1 [facility] Comment on above: Performed By: #### B MP ####[facility] [address] [address]Dr. Omid Bowden Chloride [Moles/Vol] 100 mmol/L Normal 98-107 [facility] Comment on above: Performed By: #### B MP ####[facility] [address] [address]Dr. Omid Bowden CO2 [Moles/Vol] 33.0 mmol/L Critically high 21.0-32.0 [facility] Comment on above: Performed By: #### B MP ####[facility] [address] [id number]. Omid Bowden Creatinine [Mass/Vol] 1.15 mg/dL Critically high 0.55-1.02 [facility] Comment on above: Performed By: #### B MP ####[facility] [address] [address]Dr. Omid Bowden EGFR-AF SPANISH 55 mL/min/1.73m2 Critically low >=60 [facility] Comment on above: Performed By: #### B MP ####[facility] [address] [address]Dr. Omid Bowden EGFR-NON AF SPANISH 46 mL/min/1.73m2 Critically low >=60 [facility] Comment on above: Performed By: #### B MP ####[facility] [address] [address]Dr. Omid Bowden Glucose [Mass/Vol] 167 mg/dL Critically high 74-106 [facility] Comment on above: Performed By: #### B MP ####[facility] [address] [address]Dr. Omid Bowden Potassium [Moles/Vol] 3.4 mmol/L Critically low 3.5-5.1 [facility] Comment on above: Performed By: #### B MP ####[facility] [address] [address]Dr. Omid Bowden Sodium [Moles/Vol] 142 mmol/L Normal 136-145 [facility] Comment on above: Performed By: #### B MP ####[facility] [address] [address]Dr. Omid Bowden Urea nitrogen [Mass/Vol] 23.0 mg/dL Critically high 7.0-18.0 [facility] Comment on above: Performed By: #### B MP ####[facility] [address] [address]Dr. Omid Bowden Urea nitrogen/Creatinine [Mass ratio] 20.0 mg/mg Normal [facility] Comment on above: Performed By: #### B MP ####[facility] [address] [place], [place] [address]Dr. Omid Bowden SYMPTOMATIC COVID-19 ANTIGEN on 03-16-2022 EUA Statement SEE BELOW Normal [facility] Comment on above: Result Comment: This test [...] Performed By: #### L IPID, BMP #### [facility] [address] [place] [address] Dr. Omid Bowden SARS-CoV-2 (COVID-19) RNA MARII+probe Ql (Unsp spec) Positive Critically abnormal NEGATIVE [facility] Comment on above: Performed By: #### L IPID, BMP #### [facility] [address] [place] [address] Dr. Omid Bowden HEMOGLOBINon 03-15-2022 Hemoglobin (Bld) [Mass/Vol] 12.3 g/dL Normal 12.0-16.0 [facility] Comment on above: Performed By: #### H GB #### [facility] [address] [place] [address] Dr. Omid Bowden BNPon 02-15-2022 Natriuretic peptide B (Bld) [Mass/Vol] 598.0 pg/mL Normal <=1,800.0 [facility] Comment on above: Performed By: #### L IPID, BMP #### [facility] [address] [place] [address] Dr. Omid Bowden PROF CHEM 8 (BAS METB)on Anion gap [Moles/Vol] 11.9 mmol/L Normal [facility] Comment on above: Performed By: #### L IPID, BMP #### [facility] [address] [place] [address] Dr. Omid Bowden Calcium [Mass/Vol] 9.1 mg/dL Normal 8.5-10.1 [facility] Comment on above: Performed By: #### L IPID, BMP #### [facility] [address] [place] [address] Dr. Omid Bowden Chloride [Moles/Vol] 98 mmol/L Normal 98-107 [facility] Comment on above: Performed By: #### L IPID, BMP #### [facility] [address] [address] [address] Omid Bowden CO2 [Moles/Vol] 33.2 mmol/L Critically high 21.0-32.0 [facility] Comment on above: Performed By: #### L IPID, BMP #### [facility] [address] [address] [address] Omid Bowden Creatinine [Mass/Vol] 1.28 mg/dL Critically high 0.55-1.02 [facility] Comment on above: Performed By: #### L IPID, BMP #### [facility] [address] [address] [address] Omid Bowden EGFR-AF SPANISH 49 mL/min/1.73m2 Critically low >=60 [facility] Comment on above: Performed By: #### L IPID, BMP #### [facility] [address] [address] [address] Omid Bowden EGFR-NON AF SPANISH 40 mL/min/1.73m2 Critically low >=60 [facility] Comment on above: Performed By: #### L IPID, BMP #### [facility] [address] [address] [address] Omid Bowden Glucose [Mass/Vol] 182 mg/dL Critically high 74-106 [facility] Comment on above: Performed By: #### L IPID, BMP #### [facility] [address] [address] [address] Omid Bowden Potassium [Moles/Vol] 3.1 mmol/L Critically low 3.5-5.1 [facility] Comment on above: Performed By: #### L IPID, BMP #### [facility] [address] [address] [address] Omid Bowden Sodium [Moles/Vol] 140 mmol/L Normal 136-145 [facility] Comment on above: Performed By: #### L IPID, BMP #### [facility] [address] [address] [address] Omid Bowden Urea nitrogen [Mass/Vol] 30.0 mg/dL Critically high 7.0-18.0 [facility] Comment on above: Performed By: #### L IPID, BMP #### [facility] [address] [place], [place] [address] Dr. Omid Bowden Urea nitrogen/Creatinine [Mass ratio] 23.4 mg/mg Normal [facility] Comment on above: Performed By: #### L IPID, BMP #### [facility] [address] [place], [place] [address] Dr. Omid Bowden XR CHEST 2 Von [...] ALFONSO GEORGE Date: 2022-02-09 11:53 Normal [facility] No Panel Informationon 12-13 [employer] POCT Glucoseon 12-13-2021 Glucose [Mass/Vol] 196 mg/dL High 74 - 100 mg/dL [employer] Interpretation and review of laboratory results Abnormal [employer] POTASSIUM (POC)on 12-13-2021 Potassium [Moles/Vol] 3.7 mmol/L 3.5 - 4.5 mmol/L [employer] TYPE AND SCREENon 12-10-2021 ABO/Rh Positive [employer] Arm Band Number [id number] [employer] [facility] lt Expiration Date 12/16/2021,2359 [employer] EKG 12 leadOrdered By: Dennis Garcia on 12-07-2021 Atrial Rate 66 BPM [employer] Work Phone: P Sacaton 67 degrees [employer] Work Phone: P-R Interval 126 ms [employer] Work Phone: Q-T Interval 466 ms [employer] Work Phone: QRS Duration 150 ms [facility] Work Phone: QTc Calculation (Bazett) 488 ms [facility] Work Phone: R [place] 32 degrees [facility] Work Phone: T [place] 161 degrees [facility] Work Phone: Ventricular Rate 66 BPM [facility] Work Phone: [facility] Work Phone: EKG 12 leadon 12-07-2021 Sinus [...] wave inversion now evident in Inferior leads [facility] Work Phone: CBC auto differentialon 11-10 Absolute Eos # 0.13 [facility] th Absolute Immature Granulocyte 0.12 [facility] Absolute Lymph # 3.18 [facility] alth Absolute [place] # 1.22 High [facility] lt Basophils (Bld) [#/Vol] 0.05 10*3/uL [facility] Basophils/100 WBC (Bld) 0 % 0 - 2 % [facility] Eosinophils/100 WBC (Bld) 1 % 1 - 4 % [facility] Hematocrit (Bld) [Volume fraction] 38.4 % 36.3 - 47.1 % [facility] Hemoglobin.gastrointes tinal spec 1 Ql (Stl) 12.2 g/dL 11.9 - 15.1 g/dL [facility] Immature granulocytes/100 WBC (Bld) 1 % High 0 [facility] Interpretation and review of laboratory results Abnormal [facility] Lymphocytes/100 WBC (Bld) 25 % 24 - 43 % [facility] MCH (RBC) [Entitic mass] 29.9 pg 25.2 - 33.5 pg [facility] MCHC (RBC) [Mass/Vol] 31.8 g/dL 28.4 - 34.8 g/dL [facility] MCV (RBC) [Entitic vol] 94.1 fL 82.6 - 102.9 fL [facility] Monocytes/100 WBC (Bld) 10 % 3 - 12 % [facility] NRBC Automated 0.0 0.0 per 100 WBC [facility] Platelet distribution width (Bld) [Ratio] 14.5 % High 11.8 - 14.4 % [facility] Platelet mean volume (Bld) [Entitic vol] 10.1 fL 8.1 - 13.5 fL [facility] Platelets (Bld) [#/Vol] 266 10*3/uL [facility] RBC (Bld) [#/Vol] 4.08 10*6/uL 3.95 - 5.1 1 m/uL [facility] RBC (Bld) [#/Vol] ANISOCYTOSIS PRESENT [facility] Segmented neutrophils/100 WBC (Bld) 63 % 36 - 65 % [facility] Segs [facility] W[facility] (Bld) [#/Vol] 12.6 10*3/uL High [facility] Comprehensive Metabolic Pane l w/ Reflex to MGon 12-06-2021 Albumin [Mass/Vol] 3.7 g/dL 3.5 - 5.2 g/dL [facility] Albumin/Globulin [Mass ratio] 1.1 {ratio} [facility] ALP (Bld) [Catalytic activity/Vol] 93 U/L 35 - 104 U/L [facility] ALT [Catalytic activity/Vol] 12 U/L 5 - 33 U/L [facility] Anion gap [Moles/Vol] 14 mmol/L 9 - 17 mmol/L [facility] AST [Catalytic activity/Vol] 12 U/L <32 [facility] Bilirubin [Mass/Vol] 0.25 mg/dL Low 0.3 - 1 .2 mg/dL [facility] Calcium [Mass/Vol] 9.1 mg/dL 8.6 - 10. 4 mg/dL [facility] Chloride [Moles/Vol] 95 mmol/L Low 98 - 10 7 mmol/L [facility] CO2 [Moles/Vol] 30 mmol/L 20 - 31 mmol/L [facility] Creatinine [Mass/Vol] 1.07 mg/dL High 0.50 - 0.90 mg/dL [facility] Free PSA/Total PSA [Mass fraction] 7.2 g/dL 6.4 - 8.3 g/dL [facility] GFR 60 mL/min Low >60 [facility] GFR Non- 49 mL/min Low >60 [facility] GFR/1.73 sq M.predicted MDRD (S/P/Bld) [Vol rate/Area] [facility] Comment on above: Average GFR for 70 o r more years old: 75 mL/min/1.73sq m Chronic Kidney Disease: <60 mL/min/1.73sq m Kidney failure: <15 mL/min/1.73sq m eGFR calculated using average adult body mass. Additional eGFR calculator available at: http://www.[employer]_crcl_2011.htm Glucose [Mass/Vol] 188 mg/dL High 70 - 99 mg/dL [facility] Interpretation and review of laboratory results Abnormal [facility] Potassium [Moles/Vol] 3.3 mmol/L Low 3.7 - 5.3 mmol/L [facility] Sodium [Moles/Vol] 139 mmol/L 135 - 144 mmol/L [facility] Urea nitrogen (BldV) [Mass/Vol] 22 mg/dL 8 - 23 mg/dL [facility] Magnesiumon 12-06-2021 Magnesium [Mass/Vol] 1.6 mg/dL 1.6 - 2 .6 mg/dL [facility] No Panel Informationon 12-06 No acute process. [facility] EXAMINATION: TWO XRAY VIEWS [...] The osseous structures are without acute process. [facility] Kael Freeman MD - [...] without acute process. IMPRESSION: No acute process. [employer] Phone: Radiology Study observation (narrative) [employer] Phone: No Panel InformationOrdered By: Kael Freeman on 12-06-2021 [employer] Phone: Creatinine W/GFR Point of Ca reOrdered By: Kin Abarca on 06-15-2021 Creatinine [Mass/Vol] 0.89 mg/dL 0.51 - 1.19 mg/dL [employer] Phone: GFR Non- >60 >60 mL/min [employer] Phone: GFR/1.73 sq M.predicted MDRD (S/P/Bld) [Vol rate/Area] mL/min/{1.73_m2} >60 mL/min [employer] Phone: GFR/1.73 sq M.predicted MDRD (S/P/Bld) [Vol rate/Area] [employer] Phone: Comment on above: Average GFR for 70 o r more years old: 75 mL/min/1.73sq m Chronic Kidney Disease: <60 mL/min/1.73sq m Kidney failure: <15 mL/min/1.73sq m eGFR calculated using average adult body mass. Additional eGFR calculator available at: http://www.dcBLOX Inc[employer]com/multiple_crcl_2012.htm No Panel InformationOrdered By: Kin Abarca on 06-15-2021 [employer] Phone: POC Glucose FingerstickOrder ed By: Kin Abarca on 06-15-2021 Glucose [Mass/Vol] 163 mg/dL High 65 - 105 mg/dL [employer] Phone: Interpretation and review of laboratory results Abnormal [employer] Phone: [employer] Phone: POCT GlucoseOrdered By: Kin Abarca on 06-15-2021 Glucose [Mass/Vol] 186 mg/dL High 74 - 100 mg/dL [employer] Phone: Interpretation and review of laboratory results Abnormal [employer] Phone: POTASSIUM (POC)Ordered By: Yuriy Abarca on 06-15-2021 Potassium [Moles/Vol] 4.5 mmol/L 3.5 - 4.5 mmol/L [employer] Phone: EKG 12 leadOrdered By: Antoni Burks on 05-13-2021 Atrial Rate 67 BPM [employer] Phone: P Sacaton 58 degrees [employer] Phone: P-R Interval 130 ms [employer] Phone: Q-T Interval 504 ms [employer] Phone: QRS Duration 144 ms [employer] Phone: QTc Calculation (Bazett) 532 ms [employer] Phone: R Sacaton 20 degrees [employer] Phone: T Sacaton 117 degrees [employer] Phone: Ventricular Rate 67 BPM [employer] Work Phone: Sinus rhythm with Premature atrial complexes Left bundle branch block Abnormal ECG No previous ECGs available [employer] Phone: Virgilio, Mhpn Incoming E kg Results From [employer] - 05/13/2021 1:30 PM EDT Sinus rhythm with Premature atrial complexes Left bundle branch block Abnormal ECG No previous ECGs available [employer] Phone: [employer] Phone: Basic Metabolic Panel w/ Ref alexis to MGOrdered By: Latonia Burks on 05-12-2021 Anion gap [Moles/Vol] 13 mmol/L 9 - 17 mmol/L [employer] Phone: Calcium [Mass/Vol] 9.4 mg/dL 8.6 - 10. 4 mg/dL [employer] Phone: Chloride [Moles/Vol] 102 mmol/L 98 - 10 7 mmol/L [employer] Phone: CO2 [Moles/Vol] 28 mmol/L 20 - 31 mmol/L [employer] Phone: Creatinine [Mass/Vol] 0.94 mg/dL High 0.50 - 0.90 mg/dL [employer] Phone: GFR >60 >60 mL/min [employer] Phone: GFR Non- 58 mL/min Low >60 [employer] Phone: GFR/1.73 sq M.predicted MDRD (S/P/Bld) [Vol rate/Area] [employer] Phone: Comment on above: Average GFR for 70 o r more years old: 75 mL/min/1.73sq m Chronic Kidney Disease: <60 mL/min/1.73sq m Kidney failure: <15 mL/min/1.73sq m eGFR calculated using average adult body mass. Additional eGFR calculator available at: http://www.dcBLOX Inc[employer]/multiple_crcl_2012.htm GFR/1.73 sq M.predicted MDRD (S/P/Bld) [Vol rate/Area] NOT REPORTED [employer] Phone: Glucose [Mass/Vol] 119 mg/dL High 70 - 99 mg/dL [employer] Phone: Interpretation and review of laboratory results Abnormal [employer] Phone: Potassium [Moles/Vol] 4.0 mmol/L 3.7 - 5.3 mmol/L [employer] Phone: Sodium [Moles/Vol] 143 mmol/L 135 - 144 mmol/L [employer] Work Phone: Urea nitrogen (BldV) [Mass/Vol] 18 mg/dL 8 - 23 mg/dL [employer] Work Phone: Urea nitrogen/Creatinine (Bld) [Mass ratio] NOT REPORTED [employer] Work Phone: [employer] Work Phone: CBC auto differentialOrdered By: Latonia Burks on 05-12-2021 [employer] Eos # 0.[address] [employer] [facility] Work Phone: Absolute Immature Granulocyte 0.04 [employer] Work Phone: Absolute Lymph # 3.26 [employer] [facility] Work Phone: Absolute [place] # 0.84 [facility] Work Phone: Basophils (Bld) [#/Vol] 0.05 10*3/uL [employer] Work Phone: Basophils/100 WBC (Bld) 1 % 0 - 2 % [employer] Phone: Differential Type NOT REPORTED [employer] Phone: Eosinophils/100 WBC (Bld) 3 % 1 - 4 % [employer] Work Phone: Hematocrit (Bld) [Volume fraction] 36.9 % 36.3 - 47.1 % [employer] Phone: Hemoglobin.gastrointes tinal spec 1 Ql (Stl) 11.2 g/dL Low 11.9 - 15.1 g/dL [employer] Phone: Immature granulocytes/100 WBC (Bld) 0 % 0 [employer] Work Phone: Interpretation and review of laboratory results Abnormal [employer] Phone: Lymphocytes/100 WBC (Bld) 32 % 24 - 43 % [employer] Phone: MCH (RBC) [Entitic mass] 28.3 pg 25.2 - 33.5 pg [employer] Phone: MCHC (RBC) [Mass/Vol] 30.4 g/dL 28.4 - 34.8 g/dL [employer] Phone: MCV (RBC) [Entitic vol] 93.2 fL 82.6 - 102.9 fL [employer] Phone: Monocytes/100 WBC (Bld) 8 % 3 - 12 % [employer] Phone: NRBC Automated 0.0 0.0 per 100 WBC [employer] Phone: Platelet distribution width (Bld) [Ratio] 13.8 % 11.8 - 14.4 % [employer] Phone: Platelet Estimate NOT REPORTED [employer] Phone: Platelet mean volume (Bld) [Entitic vol] 9.5 fL 8.1 - 13.5 fL [employer] Phone: Platelets (Bld) [#/Vol] 310 10*3/uL [employer] Phone: RBC (Bld) [#/Vol] 3.96 10*6/uL 3.95 - 5.1 1 m/uL [employer] Phone: RBC (Bld) [#/Vol] NOT REPORTED [employer] Phone: Segmented neutrophils/100 WBC (Bld) 56 % 36 - 65 % [employer] Phone: [employer]s [employer] Work Phone: WBC (Bld) [#/Vol] 10.2 10*3/uL [employer] Phone: WBC (Bld) [#/Vol] NOT REPORTED [employer] Phone: [employer] Phone: XR CHEST (2 VW)Ordered By: Joanie Burks on 05-12-2021 Senescent changes compatible with the age of the patient. No evidence of acute cardiopulmonary process. [employer] Phone: EXAMINATION: TWO XRA Y VIEWS OF [...] spine and visualized portions of the shoulders. [employer] Phone: Virgilio, Mhpn Incoming Radiant Results From [employer] - 05/12/2021 2:48 PM EDT EXAMINATION: [...] patient. No evidence of acute cardiopulmonary process. [employer] Phone: [employer] Phone: Cardiovascular Lab Reporton 08-21-2020 Cardiovascular Lab Report [facility] Patient Name: Lenin [facility] Berna MR #: [id number] Department of Physician: Jose Maria Keyes M.D. Division of Service Date: 08/20/2020 Cardiology Birthdate: 1940 Adult Cardiovascular Room #: [address] [place] [place], [place] [address] Cardiovascular Laboratory Report INDICATION: The patient is [...] signed informed consent. She was brought to freezer laboratory technician in a fasting state. The procedure was performed under conscious sedation. A transesophageal echocardiogram was performed by Dr. Marisol Khoury at baseline. Please refer to his dictation for details. The appendage measured a maximum of 16 mm in terms of ostial width. Using ultrasound guidance and micropuncture technique, access was obtained in the right common femoral vein and a 6-Beninese x 11 cm sheath was placed preclosure where the 6-Beninese ProGlide device was performed followed by advancement [...] was exchanged over that wire to the 14-Beninese Watchman access sheath, which was advanced to the left atrial cavity with no issues. The 6-Beninese angled pigtail catheter was advanced over the [...] content not included)... Normal The [facility] TYPE AND CROSSMATCHon 2019 ABO INTERPRETATION A [facility] Comment on above: Performed By: #### [id number] #### [facility] [address] [place] [address], [facility] RH INTERPRETATION Positive Normal The [place] Comment on above: Performed By: #### [id number] #### [facility] [address] [place] [address], [facility] Vital Signs Date Time Vital Sign Value Performing Clinician Facility 08-29-2024 10:01-0500 Body height 152.4 cm Peyman Brown DPM Work Phone: [facility] 08-29-2024 10:01-0500 Body mass index (BMI) [Ratio] 28.32 kg/m2 Peyman Brown DPM Work Phone: [facility] 08-29-2024 10:01-0500 Body weight 65.77 kg Peyman Brown DPM Work Phone: [facility] 08-29-2024 10:01-0500 Respiratory rate 16 /min Peyman Brown DPM Work Phone: [facility] 06-20-2024 10:140400 Body height 152.4 cm Peyman Brown DPM Work Phone: [facility] 06-20-2024 10:14-0400 Body mass index (BMI) [Ratio] 28.32 kg/m2 Peyman Brown DPM Work Phone: [facility] 06-20-2024 10:14-0400 Body weight 65.77 kg Peyman Brown DPM Work Phone: [facility] 06-20-2024 10:14-0400 Respiratory rate 18 /min Peyman Brown DPM Work Phone: [facility] 05-01-2024 10:180400 Body height 149.86 cm MD Mateus Perry Work Phone: [facility] 05-01-2024 10:18-0400 Body mass index (BMI) [Ratio] 30.2 kg/m2 MD Mateus Perry Work Phone: [facility] 05-01-2024 10:180400 Body temperature 97.8 [degF] MD Mateus Perry Work Phone: [facility] 05-01-2024 10:180400 Body weight 68.03 kg MD Mateus Perry Work Phone: [facility] 05-01-2024 10:18-0400 Diastolic blood pressure 72 mm[Hg] MD Mateus Perry Work Phone: [facility] 05-01-2024 10:18-0400 Heart rate 80 /min MD Mateus Perry Work Phone: [facility] 05-01-2024 10:18-0400 Respiratory rate 16 /min MD Mateus Perry Work Phone: [facility] 05-01-2024 10:18-0400 SaO2% (BldA) [Mass fraction] 98 % MD Mateus Perry Work Phone: [facility] 05-01-2024 10:18-0400 Systolic blood pressure 118 mm[Hg] MD Mateus Perry Work Phone: [facility] 04-24-2024 11:13-0400 Body height 149.86 cm MD Mateus Perry Work Phone: [facility] 04-24-2024 11:130400 Body mass index (BMI) [Ratio] 36.3 kg/m2 MD Mateus Perry Work Phone: [facility] 04-24-2024 11:13-0400 Body weight 81.64 kg MD Mateus Perry Work Phone: [facility] 04-24-2024 11:06-0400 Body temperature 98.8 [degF] MD Mateus Perry Work Phone: [facility] 04-24-2024 11:06-0400 Diastolic blood pressure 75 mm[Hg] MD Mateus Perry Work Phone: [facility] 04-24-2024 11:06-0400 Heart rate 97 /min MD Mateus Perry Work Phone: [facility] 04-24-2024 11:06-0400 Respiratory rate 20 /min MD Mateus Perry Work Phone: [facility] 04-24-2024 11:06-0400 Systolic blood pressure 118 mm[Hg] MD Mateus Perry Work Phone: [facility] 04-10-2024 10:30-0400 Body height 149.86 cm MD Mateus Perry Work Phone: [facility] 04-10-2024 10:30-0400 Body mass index (BMI) [Ratio] 36.3 kg/m2 MD Mateus Perry Work Phone: [facility] 04-10-2024 10:30-0400 Body weight 81.64 kg MD Mateus Perry Work Phone: [facility] 03-26-2024 09:51-0400 Body height 149.86 cm MD Mateus Perry Work Phone: [facility] 03-26-2024 09:51-0400 Body mass index (BMI) [Ratio] 36.3 kg/m2 MD Mateus Perry Work Phone: [facility] 03-26-2024 09:51-0400 Body weight 81.64 kg MD Mateus Perry Work Phone: [facility] 03-26-2024 09:36-0400 Body temperature 97.3 [degF] MD Mateus Perry Work Phone: [facility] 03-26-2024 09:36-0400 Diastolic blood pressure 61 mm[Hg] MD Mateus Perry Work Phone: [facility] 03-26-2024 09:36-0400 Heart rate 86 /min MD Mateus Perry Work Phone: [facility] 03-26-2024 09:36-0400 Respiratory rate 18 /min MD Mateus Perry Work Phone: [facility] 03-26-2024 09:36-0400 Systolic blood pressure 128 mm[Hg] MD Mateus Perry Work Phone: [facility] 06-20-2023 15:29-0400 Body height 154.9 cm Winnie Ramirez PA-C Work Phone: [facility] 06-20-2023 15:29-0400 Body temperature 97.39 [degF] Winnie Ramirez PA-C Work Phone: [facility] 06-20-2023 15:29-0400 Body weight 84.64 kg Winnie Ramirez PA-C Work Phone: [facility] 06-20-2023 15:29-0400 Diastolic blood pressure 55 mm[Hg] Winnie Ramirez PA-C Work Phone: [facility] 06-20-2023 15:29-0400 Heart rate 72 /min Winnie Ramirez PA-C Work Phone: [facility] 06-20-2023 15:29-0400 Respiratory rate 16 /min Winnie Ramirez PA-C Work Phone: [facility] 06-20-2023 15:29-0400 SaO2% (BldA) [Mass fraction] 96 % Winnie Ramirez PA-C Work Phone: [facility] 06-20-2023 15:29-0400 Systolic blood pressure 138 mm[Hg] Winnie Ramirez PA-C Work Phone: [facility] 06-01-2023 08:45-0400 Body height 154.94 cm Christiano Gonzales Other [employer] Other 06-01-2023 08:45-0400 Body mass index (BMI) [Ratio] 34.57 kg/m2 Christiano Janet Other [employer] Other 06-01-2023 08:45-0400 Body temperature 97.8 [degF] Christiano Janet Other [employer] Other 06-01-2023 08:45-0400 Body weight 83.01 kg Christiano Janet Other [employer] Other 06-01-2023 08:45-0400 Diastolic blood pressure 72 mm[Hg] Christiano Gonzales Other [employer] Other 06-01-2023 08:45-0400 SaO2% (BldA) [Mass fraction] 93 % Christiano Janet Other [employer] Other 06-01-2023 08:45-0400 Systolic blood pressure 130 mm[Hg] Christiano Gonzales Other [employer] Other 03-09-2023 08:45-0400 Body height 154.94 cm Millie Storm Other [employer] Other 03-09-2023 08:45-0400 Body mass index (BMI) [Ratio] 34.57 kg/m2 Millie Storm Other [employer] Other 03-09-2023 08:45-0400 Body temperature 96.8 [degF] Millie Storm Other [employer] Other 03-09-2023 08:45-0400 Body weight 83.01 kg Millie Storm Other [employer] Other 03-09-2023 08:45-0400 Diastolic blood pressure 56 mm[Hg] Millie Storm Other [employer] Other 03-09-2023 08:45-0400 SaO2% (BldA) [Mass fraction] 97 % Millie Storm Other [employer] Other 03-09-2023 08:45-0400 Systolic blood pressure 118 mm[Hg] Millie Storm Other [employer] Other 02-14-2023 10:19-0400 Body height 154.9 cm Wallace Stone MD Work Phone: [facility] 02-14-2023 10:19-0400 Body temperature 97.39 [degF] Wallace Stone MD Work Phone: [facility] 02-14-2023 10:19-0400 Body weight 84.46 kg Wallace Stone MD Work Phone: [facility] 02-14-2023 10:19-0400 Diastolic blood pressure 90 mm[Hg] Wallace Stone MD Work Phone: [facility] 02-14-2023 10:19-0400 Heart rate 102 /min Wallace Stone MD Work Phone: [facility] 02-14-2023 10:19-0400 Respiratory rate 16 /min Wallace Stone MD Work Phone: [facility] 02-14-2023 10:19-0400 SaO2% (BldA) [Mass fraction] 95 % Wallace Stone MD Work Phone: [facility] 02-14-2023 10:19-0400 Systolic blood pressure 151 mm[Hg] Wallace Stone MD Work Phone: [facility] 12-07-2022 14:00-0400 Body height 154.94 cm Millie Storm Other [employer] Other 12-07-2022 14:00-0400 Body mass index (BMI) [Ratio] 35.71 kg/m2 Millie Storm Other [employer] Other 12-07-2022 14:00-0400 Body temperature 97.6 [degF] Millie Storm Other [employer] Other 12-07-2022 14:00-0400 Body weight 85.73 kg Millie Storm Other [employer] Other 12-07-2022 14:00-0400 Diastolic blood pressure 68 mm[Hg] Millie Storm Other [employer] Other 12-07-2022 14:00-0400 SaO2% (BldA) [Mass fraction] 93 % Millie Storm Other [employer] Other 12-07-2022 14:00-0400 Systolic blood pressure 116 mm[Hg] Millie Storm Other [employer] Other 11-29-2022 11:53-0400 Diastolic blood pressure 54 mm[Hg] MD Mateus Perry Work Phone: [facility] 11-29-2022 11:53-0400 Heart rate 67 /min MD Mateus Perry Work Phone: [facility] 11-29-2022 11:53-0400 Respiratory rate 16 /min MD Mateus Perry Work Phone: [facility] 11-29-2022 11:53-0400 SaO2% (BldA) [Mass fraction] 94 % MD Mateus Perry Work Phone: [facility] 11-29-2022 11:53-0400 Systolic blood pressure 141 mm[Hg] MD Mateus Perry Work Phone: [facility] 11-29-2022 09:13-0400 Body height 154.94 cm MD Mateus Perry Work Phone: [facility] 11-29-2022 09:13-0400 Body weight 81.64 kg MD Mateus Perry Work Phone: [facility] 11-23-2022 11:00-0400 Body height 154.94 cm Christiano Gonzales Other [email or web address] [facility] [employer] Other 11-23-2022 11:00-0400 Body temperature 97.8 [degF] Christiano Gonzales Other [employer] Other 11-23-2022 11:00-0400 Diastolic blood pressure 62 mm[Hg] Christiano Gonzales Other [employer] Other 11-23-2022 11:00-0400 SaO2% (BldA) [Mass fraction] 96 % Christiano Gonzales Other [employer] Other 11-23-2022 11:00-0400 Systolic blood pressure 110 mm[Hg] Christiano Gonzales Other [employer] Other 11-09-2022 13:44-0500 Body height 154.9 cm Wallace Stone MD Work Phone: [facility] 11-09-2022 13:44-0500 Body temperature 97.11 [degF] Wallace Stone MD Work Phone: [facility] 11-09-2022 13:44-0500 Body weight 84.73 kg Wallace Stone MD Work Phone: [facility] 11-09-2022 13:44-0500 Diastolic blood pressure 72 mm[Hg] Wallace Stone MD Work Phone: [facility] 11-09-2022 13:44-0500 Heart rate 66 /min Wallace Stone MD Work Phone: [facility] 11-09-2022 13:44-0500 Respiratory rate 18 /min Wallace Stone MD Work Phone: [facility] 11-09-2022 13:44-0500 SaO2% (BldA) [Mass fraction] 100 % Wallace Stone MD Work Phone: [facility] 11-09-2022 13:44-0500 Systolic blood pressure 142 mm[Hg] Wallace Stone MD Work Phone: [facility] 09-22-2022 11:24-0500 Body height 154.9 cm Wallace Stone MD Work Phone: [facility] 09-22-2022 11:24-0500 Body temperature 97.81 [degF] Wallace Stone MD Work Phone: [facility] 09-22-2022 11:24-0500 Body weight 84.82 kg Wallace Stone MD Work Phone: [facility] 09-22-2022 11:24-0500 Diastolic blood pressure 64 mm[Hg] Wallace Stone MD Work Phone: [facility] 09-22-2022 11:24-0500 Heart rate 70 /min Wallace Stone MD Work Phone: [facility] 09-22-2022 11:24-0500 Respiratory rate 16 /min Wallace Stone MD Work Phone: [facility] 09-22-2022 11:24-0500 SaO2% (BldA) [Mass fraction] 94 % Wallace Stone MD Work Phone: [facility] 09-22-2022 11:24-0500 Systolic blood pressure 137 mm[Hg] Wallace Stone MD Work Phone: [facility] 09-09-2022 15:06-0500 Blood Pressure Location Iliana DORANL [facility] [place] 09-09-2022 15:06-0500 Diastolic blood pressure 68 mm[Hg] Iliana NILL [facility] 09-09-2022 15:06-0500 Heart rate 68 /min Iliana NILL [facility] 09-09-2022 15:06-0500 Respiratory rate 16 /min Iliana DORANL [facility] 09-09-2022 15:06-0500 Systolic blood pressure 130 mm[Hg] Iliana NILL [facility] 06-28-2022 12:00-0400 SaO2% (BldA) [Mass fraction] 95 % Emma Plunkett MD Work Phone: [facility] 06-28-2022 11:50-0400 Body temperature 97.3 [degF] Emma Plunkett MD Work Phone: [facility] 06-28-2022 11:50-0400 Diastolic blood pressure 50 mm[Hg] Emma Plunkett MD Work Phone: [facility] 06-28-2022 11:50-0400 Heart rate 69 /min Emma Plunkett MD Work Phone: [facility] 06-28-2022 11:50-0400 Respiratory rate 16 /min Emma Plunkett MD Work Phone: [facility] 06-28-2022 11:50-0400 Systolic blood pressure 115 mm[Hg] Emma Plunkett MD Work Phone: [facility] 06-28-2022 07:36-0400 Body height 154.9 cm Emma Plunkett MD Work Phone: [facility] 06-28-2022 07:36-0400 Body mass index (BMI) [Ratio] 34.58 kg/m2 Emma Plunkett MD Work Phone: [facility] 06-28-2022 07:36-0400 Body weight 83.01 kg Emma Plunkett MD Work Phone: [facility] 12-13-2021 15:45-0400 Body temperature 97 [degF] Emma Plunkett MD Work Phone: [facility] [employer] 12-13-2021 15:45-0400 Diastolic blood pressure 96 mm[Hg] Emma Plunkett MD Work Phone: [facility] [employer] 12-13-2021 15:45-0400 Heart rate 65 /min Emma Plunkett MD Work Phone: [facility] 12-13-2021 15:45-0400 Respiratory rate 14 /min Emma Plunkett MD Work Phone: [facility] [employer] 12-13-2021 15:45-0400 SaO2% (BldA) [Mass fraction] 94 % Emma Plunkett MD Work Phone: [facility] [employer] 12-13-2021 15:45-0400 Systolic blood pressure 113 mm[Hg] Emma Plunkett MD Work Phone: [facility] [employer] 12-13-2021 09:46-0400 Body height 154.9 cm Emma Plunkett MD Work Phone: [facility] [employer] 12-13-2021 09:46-0400 Body mass index (BMI) [Ratio] 36.09 kg/m2 Emma Plunkett MD Work Phone: [facility] 12-13-2021 09:46-0400 Body weight 86.64 kg Emma Plunkett MD Work Phone: [facility] 12-06-2021 14:46-0400 Body height 154.[address] 12-06-2021 14:46-0400 Body mass index (BMI) [Ratio] 36.09 kg/m2 [address] 12-06-2021 14:46-0400 Body temperature 96.4 [degF] [address] 12-06-2021 14:46-0400 Body weight 86.[address] 12-06-2021 14:46-0400 Diastolic blood pressure 67 mm[Hg] [address] 12-06-2021 14:46-0400 Heart rate 62 /min [address] 12-06-2021 14:46-0400 Respiratory rate 20 /min [address] 12-06-2021 14:46-0400 SaO2% (BldA) [Mass fraction] 97 % [address] 12-06-2021 14:46-0400 Systolic blood pressure 153 mm[Hg] [address] 06-15-2021 10:14-0400 Body temperature 97.81 [degF] Kin Abarca MD Work Phone: [facility] [employer] Work Phone: 06-15-2021 10:14-0400 Diastolic blood pressure 58 mm[Hg] Kin Abarca MD Work Phone: [facility] [employer] Work Phone: 06-15-2021 10:14-0400 Heart rate 61 /min Kin Abarca MD Work Phone: [employer] Work Phone: 06-15-2021 10:14-0400 Respiratory rate 14 /min Kin Abarca MD Work Phone: [employer] Work Phone: 06-15-2021 10:14-0400 SaO2% (BldA) [Mass fraction] 96 % Kin Abarca MD Work Phone: [employer] Work Phone: 06-15-2021 10:14-0400 Systolic blood pressure 113 mm[Hg] Kin Abarca MD Work Phone: [employer] Work Phone: 06-15-2021 08:24-0400 Body height 154.9 cm Kin Abarca MD Work Phone: [employer] Work Phone: 06-15-2021 08:24-0400 Body mass index (BMI) [Ratio] 34.96 kg/m2 Kin Abarca MD Work Phone: [employer] Work Phone: 06-15-2021 08:24-0400 Body weight 83.92 kg Kin Abarca MD Work Phone: [employer] Phone: 05-12-2021 12:53-0400 Body height 154.9 cm Stv[facility] 1 [employer] Phone: 05-12-2021 12:53-0400 Body mass index (BMI) [Ratio] 35.52 kg/m2 [facility] [employer] Work Phone: 05-12-2021 12:53-0400 Body temperature 96.8 [degF] [facility] [employer] Phone: 05-12-2021 12:53-0400 Body weight 85.28 kg [facility] 1 [employer] Phone: 05-12-2021 12:53-0400 Diastolic blood pressure 66 mm[Hg] [facility] [employer] Work Phone: 05-12-2021 12:53-0400 Heart rate 57 /min [facility] [employer] Phone: 05-12-2021 12:53-0400 Respiratory rate 18 /min Stvz 1 [employer] Work Phone: 05-12-2021 12:53-0400 SaO2% (BldA) [Mass fraction] 96 % [facility] [employer] Work Phone: 05-12-2021 12:53-0400 Systolic blood pressure 150 mm[Hg] [facility] [employer] Work Phone: Encounters Encounter Date Encounter Type Care Provider Facility Start: 09-02-2024 ambulatory [facility] Start: 08-29-2024 End: 08-29-2024 Mayvennheet Peyman Hensley DPM Work Phone: [facility] Start: 08-29-2024 End: 08-29-2024 Mayvennheet Peyman Hensley DPM Work Phone: [facility] Start: 08-29-2024 Encounter for preprocedural cardiovascular examination [facility] Start: 08-29-2024 End: 08-29-2024 Office outpatient visit 15 minutes Peyman Hensley DPM Work Phone: [facility] Comment on above: 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 (CMS/HCC) (Primary Dx); Diabetes mellitus due to underlying condition with diabetic polyneuropathy, 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 technician terminal and repeater insulin use (CMS/HCC); Pain due to onychomycosis of toenails of both feet; Venous insufficiency; Neoplasm of uncertain behavior of skin Start: 08-29-2024 End: 08-29-2024 ambulatory PEYMAN HENSLEY Not Available Start: 08-27-2024 End: 08-27-2024 ambulatory [facility] Start: 08-12-2024 ambulatory [facility] Start: 08-12-2024 End: 08-12-2024 ambulatory [facility] Start: 07-17-2024 End: 07-17-[facility]24 [facility] Start: 07-10-2024 ambulatory [facility] Start: 07-10-2024 End: 07-10-2024 ambulatory [facility] Start: 07-02-2024 End: 07-02-2024 ambulatory [facility] Start: 06-20-2024 End: 06-20-2024 Bamboo flowsheet Peyman Hensley DPM Work Phone: [facility] Start: 06-20-2024 End: 06-20-2024 Bamboo flowsale Hensley DPM Work Phone: [facility] [...] underlying condition with diabetic polyneuropathy, 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 assisted insulin use (CMS/HCC); Pain due to onychomycosis of toenails of both feet Start: 06-12-2024 End: 06-12-2024 ambulatory [facility] Start: 05-27-2024 End: 05-27-2024 ambulatory CHERYL FARIA [facility] Start: 05-01-2024 End: 05-01-2024 ambulatory MD Mateus Perry Work Phone: [facility] Work Phone: Start: 05-01-2024 End: 05-01-2024 Patient encounter procedure MD Mateus Perry Work Phone: [facility] Vascular Surgery Work Phone: Start: 04-24-2024 End: 04-24-2024 ambulatory MD Mateus Perry Work Phone: [facility] Work Phone: Start: 04-24-2024 End: 04-24-2024 Discharged Recurring MD Mateus Perry Work Phone: [facility] [place] Work Phone: Start: 04-09-2024 End: 04-09-2024 Patient encounter procedure MD Mateus Perry Work Phone: [facility]-Ultrasound [facility] [place] Work Phone: Start: 04-09-2024 End: 04-09-2024 ambulatory MD Mateus Perry Work Phone: [facility] Work Phone: Start: 03-26-2024 Registered Recurring MD Yvonne Perry Work Phone: [facility] [place] Work Phone: Start: 06-20-2023 End: 06-20-2023 ambulatory WINNIE GUZMÁN Facility:[facility] Start: 06-20-2023 End: 06-20-2023 ambulatory Winnie Guzmán PA-C Work Phone: Hematology/Oncology Comment on above: 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, estrogen receptor positive (HCC) (Primary Dx); Stage 3a chronic kidney disease (HCC) Start: 06-20-2023 End: 06-20-2023 Patient encounter procedure Winnie Guzmán PA-C Work Phone: [facility] Start: 06-01-2023 End: 06-01-2023 ambulatory Christiano Gonzales Other [employer] Other Start: 06-01-2023 Office outpatient vi sit 15 minutes Christiano Gonzales [facility] Vascular Surgery Start: 04-06-2023 End: 04-07-2023 ambulatory MATEUS PERRY [facility] Start: 03-09-2023 End: 03-09-2023 ambulatory Millie Storm Other [employer] Other Start: 03-09-2023 Patient encounter procedure Millie Emeterio [facility] Vascular Surgery Start: 03-06-2023 End: 03-06-2023 ambulatory EMMA GARZA V [facility] Start: 02-14-2023 End: 02-14-2023 ambulatory WALLACE STONE Facility:[facility] Start: 02-14-2023 End: 02-14-2023 ambulatory Wallace Stone MD Work Phone: Hematology/Oncology Comment on above: 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, estrogen receptor positive (HCC) (Primary Dx); Rash; Other eczema; Stage 3a chronic kidney disease (HCC) Start: 02-14-2023 End: 02-14-2023 Patient encounter procedure Wallace Stone MD Work Phone: [place] Start: 01-19-2023 End: 01-19-[address] MATEUS PERRY . Facility: Start: 12-08-2022 End: 12-08-2022 ambulatory Millie Storm Other [employer] Other Start: 12-08-2022 Telephone encounter Millie Storm [facility] Start: 12-07-2022 End: 12-07-2022 ambulatory Millie Storm Other [employer] Other Start: 12-07-2022 Patient encounter procedure Millie [facility] Vascular Surgery Start: 11-29-2022 End: 11-29-2022 Admission to same day surgery center MD Mateus Perry Work Phone: [facility] Work Phone: Start: 11-29-2022 End: 11-29-2022 ambulatory MD Mateus Perry Work Phone: [facility] Work Phone: Start: 11-24-2022 End: 11-25-2022 ambulatory LATONIA BRUSH [facility] Start: 11-24-2022 End: 11-24-2022 Subsequent hospital visit by physician Mateus Perry MD Work Phone: [facility] Start: 11-23-2022 End: 11-23-2022 ambulatory Christiano Gonzales Other [employer] Other Start: 11-23-2022 Office outpatient ne w 60 minutes Christiano Gonzales [facility] Vascular Surgery Start: 11-22-2022 End: 11-23-2022 ambulatory Iliana R NILL Facility: [facility] Start: 11-16-2022 End: 11-16-[address] MATEUS PERRY . Facility: Start: 11-09-2022 End: 11-09-2022 ambulatory Wallace Stone MD Work Phone: Hematology/Oncology Comment on above: 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, estrogen receptor positive (HCC) (Primary Dx); Claudication in peripheral vascular disease (HCC) Start: 11-09-2022 End: 11-09-2022 Patient encounter procedure Wallace Stone MD Work Phone: [place] Start: 11-09-2022 Telephone encounter Wallace carolina MD [facility] Comment on above: Referral Information (Vascular Consult) Start: 11-08-2022 End: 11-09-2022 ambulatory Iliana R NILL Facility: [facility] Start: 11-08-2022 End: 11-08-2022 Patient encounter procedure Iliana R NILL General Surgery Nill/Said [facility] Start: 11-04-2022 End: 11-05-2022 ambulatory Iliana R NILL Facility:[facility] [place] Start: 11-04-2022 End: 11-04-2022 Patient encounter procedure Iliana GAGNON General Surgery Nill/Said [place] Start: 11-02-2022 End: 11-03-[address] MATEUS PERRY . Facility: Start: 10-25-2022 End: 10-26-2022 ambulatory Iliana GAGNON Facility:[facility] Start: 10-25-2022 End: 10-25-2022 Patient encounter procedure Iliana GAGNON General Surgery Nill/Said [place] Start: 10-19-2022 End: 10-20-[address] ILIANA GAGNON . Facility: Start: 10-15-[address] ILIANA GAGNON . Facil ity:[facility]1 Start: 10-12-2022 Encounter for preprocedural laboratory examination DR ILIANA GAGNON . [facility] Start: 10-11-2022 End: 10-12-[address] ILIANA GAGNON . Facility: Start: 10-11-2022 End: 10-12-2022 Encounter for preprocedural laboratory examination DR ILIANA GAGNON . Facility: Start: 09-30-2022 End: 10-01-[address] MATEUS PERRY . Facility: Start: 09-22-2022 Telephone encounter Lars Wilkerson RN Work Phone: Hematology/Oncology Comment on above: Care Coordination (S urgery update) Start: 09-22-2022 End: 09-22-2022 ambulatory WALLACE STONE Facility:[facility] Start: 09-22-2022 End: 09-22-2022 ambulatory Wallace [...] PERRY . Facility:[facility] Start: 09-19-2022 Chart abstracting Wallaec mseser MD Work Phone: Hematology/Oncology Start: 09-16-2022 End: 09-17-[address] DOCTOR SPEAR Facility:[facility] Start: 09-09-2022 End: 09-10-2022 ambulatory Iliana GAGNON Facility: [place] Start: 09-09-2022 End: 09-09-2022 Patient encounter procedure [...] Facility:[facility] Start: 07-19-2022 End: 07-20-[address] MATUES PERRY . Facility:[facility] Start: 06-28-2022 End: 06-28-2022 Subsequent hospital visit by physician Emma Garza MD Work Phone: [facility] Comment on above: Vaginal dysplasia Start: 06-22-2022 End: 06-23-2022 ambulatory SONALI MCKINNEY Facility:[facility] Start: 05-04-2022 ambulatory SONALI MCKINNEY Facility :[facility] Start: 04-12-2022 End: 04-13-2022 ambulatory SONALI OBRIENCKER Facility:[facility] Start: 03-17-2022 End: 03-17-[address] MATEUS PERRY . Facility:[facility] Start: 03-16-2022 End: 03-16-[address] MATEUS PERRY . Facility:[facility] Start: 03-15-2022 End: 03-16-2022 ambulatory SONALI HANK Facility:[facility] Start: 02-15-2022 End: 02-16-2022 ambulatory [facility] Facility:[facility]1 Start: 02-09-2022 End: 02-10-2022 ambulatory [facility] Facility:[facility] Start: 12-13-2021 End: 12-13-2021 Subsequent hospital visit by physician Emma Garza MD Work Phone: [facility] Comment on above: Post-operative state (Primary Dx) Start: 12-06-2021 End: 12-08-2021 Subsequent hospital visit by physician Stv Pat Xr [facility] Radiology Comment on above: Arrived Start: 12-06-2021 End: 12-10-2021 Patient encounter status [facility] 2 [facility] Pre-Admit Testing Start: 12-06-2021 End: 12-10-2021 Subsequent hospital visit by physician vsandra Pat 2 [facility] Pre-Admit Testing Comment on above: Pre-op chest exam Start: 06-15-2021 End: 06-15-2021 Subsequent hospital visit by physician Kin Abarca MD Work Phone: [facility] Start: 05-12-2021 End: 05-14-2021 Subsequent hospital visit by physician Stv Pat Xr [facility] Radiology Comment on above: Arrived Start: 05-12-2021 End: 05-16-2021 Patient encounter status Stv[facility] 1 [facility] Pre-Admit Testing Start: 05-12-2021 End: 05-16-2021 Subsequent hospital visit by physician vsandra Hendrix Rm 1 [facility] Pre-Admit Testing Comment [...] above: Performed By: #### [id number] #### [facility] [place] [address], [facility] Start: 01-16-2017 History of placement of stent for coronary artery disease S/P coronary artery stent placement Wallace Stone MD Work Phone: Appendectomy Iliana DORANL Colposcopy Iliana NILL Cryosurgery of lesio n of cervix Iliana NILL Insertion of arteria l stent Iliana NILL Insertion of stent i n femoral vein Iliana NILL Repair of aneurysm Iliana Brown BROWN Total hysterectomy v ia vaginal approach Iliana DORANBerna Ultrasonography guid ed biopsy of right breast Iliana DORANBerna Urinary bladder reconstruction Iliana DORANBerna Plan of Treatment Date Care Activity Detail Author Start: 11-07-2024 End: 11-07-2024 Patient encounter procedure 11/07/2024 10:00 AM EST Office Visit [facility] [address] [facility] [address] [place] [address] Peyman Hensley DPM [address] [facility] [address] [place] [address] [facility] Start: 08-29-2024 End: 08-29-2024 Patient encounter procedure [facility] Comment on above: 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 (CMS/HCC) (Primary Dx); Diabetes mellitus due to underlying condition with diabetic polyneuropathy, 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 technician terminal and repeater insulin use (CMS/HCC); Pain due to onychomycosis of toenails of both feet; Venous insufficiency Start: 06-20-2024 Hemoglobin/Hematocrit Hemoglobin/Hem atocrit [facility] Start: 06-20-2024 Serum Creatinine Serum Creatinine [facility] Start: 05-12-2024 Influenza vaccination Influenza Vacc ine (#1) [facility] Start: 02-15-2024 HEMOGLOBIN/HEMATOCRIT HEMOGLOBIN/HEM ATOCRIT [facility] Start: 02-15-2024 SERUM CREATININE SERUM CREATININE Cl [facility] Start: 06-16-2023 End: 08-16-2023 CBC W Auto Differential panel - Blood CBC + DIFF Lab Routine 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, estrogen receptor positive (HCC) Expected: 06/16/2023 (Approximate), Expires: 08/16/2023 [facility] Work Phone: Comment on above: Expected: 06/16/2023 (Approximate), Expires: 08/16/2023 Start: 06-16-2023 End: 08-16-2023 Comprehensive metabolic 2000 panel - Serum or Plasma COMP METABOLIC PANEL Lab Routine 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, estrogen receptor positive (HCC) Expected: 06/16/2023 (Approximate), Expires: 08/16/2023 [facility] Work Phone: Comment on above: Expected: 06/16/2023 (Approximate), Expires: 08/16/2023 Start: 05-12-2023 Covid-19 Vaccine ( season) Covid-19 Vaccine ( season) [facility] Start: 05-12-2023 Influenza vaccination C [facility] Start: 04-12-2023 End: 04-12-2023 Patient encounter procedure 04/12/2023 Office Visit Gynecologic Oncology Latonia Brush PA-C [address] [id number] [facility] Gynecologic Oncology Services Start: 02-09-2023 End: 04-11-2023 CBC W Auto Differential panel - Blood CBC + DIFF Lab Routine 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, estrogen receptor positive (HCC) Expected: 02/09/2023 (Approximate), Expires: 04/11/2023 [facility] Work Phone: Comment on above: Expected: 02/09/2023 (Approximate), Expires: 04/11/2023 Start: 02-09-2023 End: 04-11-2023 Comprehensive metabolic 2000 panel - Serum or Plasma COMP METABOLIC PANEL Lab Routine 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, estrogen receptor positive (HCC) Expected: 02/09/2023 (Approximate), Expires: 04/11/2023 [facility] Work Phone: Comment on above: Expected: 02/09/2023 (Approximate), Expires: 04/11/2023 Start: 12-13-2022 Potassium monitoring Potassium monit [facility] [employer] Start: 12-06-2022 Creatinine measurement Creatinine mo [facility] Start: 12-06-2022 Potassium monitoring Potassium monit [facility] [employer] Start: 11-29-2022 End: 11-29-2022 [facility] Start: 09-11-2022 ADVANCE DIRECTIVE DISCUSSION ADVANCE DIRECTIVE DISCUSSION [facility] Start: 09-11-2022 DEPRESSION ASSESSMENT DEPRESSION ASS ESSMENT [facility] Start: 07-27-2022 End: 07-27-2022 Patient encounter procedure 07/27/2022 Office Visit Gynecologic Oncology Emma Garza MD [address] [facility] [address] [place] [address] [facility] Gynecologic Oncology Services Start: 06-28-2022 End: 06-28-2022 VULVA VAGINAL CERVIX LESION EXCISION LASER VULVA VAGINAL CERVIX LESION EXCISION LASER Vaginal dysplasia 06/28/2022 9:04 AM EDT [facility] Start: 06-15-2022 Creatinine measurement Creatinine mo [facility] [employer] Work Phone: Start: 06-15-2022 Potassium monitoring Potassium monit [facility] Work Phone: Start: 05-12-2022 Creatinine measurement Creatinine mo [facility] Work Phone: Start: 05-12-2022 Influenza vaccination INFLUENZA (#1) [facility] Start: 05-12-2022 Potassium monitoring Potassium monit [facility] Work Phone: Start: 04-11-2022 Influenza vaccination Flu vaccine (# 1) ENIO [facility]EVERLY [facility] Start: 01-14-2022 End: 01-14-2022 Patient encounter procedure 01/14/2022 Office Visit Gynecologic Oncology Latonia Burks PA-C [address] [facility] [address] [place] [id number] [facility] Gynecologic Oncology Services Start: 12-13-2021 End: 12-13-2021 VAGINECTOMY [facility] Start: 12-13-2021 End: 12-13-2021 Admission to same day surgery center [facility] Comment on above: VAGINECTOMY, CYSTOSC OPY CYSTOSCOPY, VAGINECT PATY Start: 12-13-2021 Subsequent hospital visit by physician 12/13/2021 Hospital Encounter IP Unit Emma Garza MD [address] [facility] [address] [place] [id number] [facility] Start: 12-13-2021 End: 12-13-2021 Vaginectomy complete removal vaginal wall VAGINECTOMY VAGINAL DYSPLASIA, RULE OUT CANCER 12/13/2021 10:20 AM EDT [facility] Start: 10-31-2021 Annual Wellness Visi t (AWV) Annual Wellness Visit (AWV) [facility] Start: 10-15-2021 COVID-19 VACCINE (4 - Booster for Moderna series) COVID-19 VACCINE (4 - Booster for Moderna series) [facility] Start: 07-01-2021 End: 07-01-2021 Patient encounter procedure 07/01/2021 Office Visit Gynecologic Oncology Kin Abarca MD [address] [facility] [address] [place] [id number] [facility] Gynecologic Oncology Services Start: 05-12-2021 Influenza vaccination Flu vaccine (# 1) [facility] Work Phone: Start: 04-05-2021 COVID-19 Vaccine (3 - Booster for Moderna series) COVID-19 Vaccine (3 - Booster for Moderna series) [facility] Start: 10-29-2020 Hemoglobin A1c/Hemoglobin.total in Blood HBA1C [facility] Start: 01-19-2018 Pneumococcal Vaccine : 65+ (2 - PCV) Pneumococcal Vaccine: 65+ (2 - PCV) [facility] Start: 01-19-2018 Pneumococcal Vaccine : 65+ Years (2 of 2 - PCV) Pneumococcal Vaccine: 65+ Years (2 of 2 - PCV) [facility] Start: 01-19-2018 PNEUMOCOCCAL: 65+ (2 - PCV) PNEUMOCOCCAL: 65+ (2 - PCV) [facility] Start: 2007 BONE DENSITY BONE DENSITY [facility] Start: 2007 Bone Density Screening Bone Density Screening [facility] Start: 2007 Pneumococcal 65+ yea rs Vaccine (1 - PCV) Pneumococcal 65+ years Vaccine (1 - PCV) [facility] Start: 2007 Pneumococcal 65+ yea rs Vaccine (1 of 1 - PPSV23) Pneumococcal 65+ years Vaccine (1 of 1 - PPSV23) [facility] Start: 2002 Hepatitis B Vaccine (1 of 3 - Risk 3-dose series) Hepatitis B Vaccine (1 of 3 - Risk 3-dose series) [facility] Start: 1997 Screening for osteoporosis DEXA (modify frequency per FRAX score) [facility] Start: 1992 Shingles Vaccine (1 of 2) Shingles Vaccine (1 of 2) [facility] Start: 1992 SHINGRIX VACCINE (1 of 2) SHINGRIX VACCINE (1 of 2) [facility] Start: 1961 DTaP/Tdap/Td vaccine (1 - Tdap) DTaP/Tdap/Td vaccine (1 - Tdap) [facility] Start: 1961 Urine microalbumin profile [facility] Start: 1960 ANNUAL PCP TEAM CLINICAL RESOURCE NURSE USAMA DISEASE VISIT ANNUAL PCP TEAM CHRONIC DISEASE VISIT [facility] Start: 1960 BP CONTROLLED (<130/80) BP CON TROLLED (<130/80) [facility] Start: 1960 Hepatitis B surface antibody level LDL CHOLESTEROL [facility] Start: 1960 Hepatitis C screening Hepatitis C sc reen [facility] Start: 1954 Depression Screen Depression Screen [facility] Start: 1952 3 comp foot exam completed DIABETIC FOOT EXAM [facility] Start: 1952 Hepatitis B screening URINE ALBUMIN:CREATININE RATIO [facility] Start: 1952 Hepatitis C antibody , confirmatory test DILATED RETINAL EXAM [facility] Start: 1952 Lipid panel [facility] Start: 1942 Hepatitis C screening Hepatitis C sc reen [facility] EKG 12 Lead EKG 12 Lead ECG STAT 06/28/2022 7:29 AM EDT [employer] [facility] Work Phone: End: 12-13-2021 INITIATE PACU OXYGEN THERAPY PROTOCOL Initiate PACU Oxygen Therapy Protocol Respiratory Care Routine Continuous until discontinued starting 12/13/2021 [employer] Work Phone: Comment on above: Continuous until dis continued starting 12/13/2021 End: 06-28-2022 INITIATE PACU OXYGEN THERAPY PROTOCOL Initiate PACU Oxygen Therapy Protocol Respiratory Care Routine Continuous until discontinued starting 06/28/2022 [facility] [employer] Work Phone: Comment on above: Continuous until dis continued starting 06/28/2022 End: 07-19-2024 [facility] Radiology Routine 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, estrogen receptor positive (HCC) 1 Occurrences starting 06/20/2023 until 07/19/2024 [facility] Work Phone: Comment on above: 1 Occurrences starti ng 06/20/2023 until 07/19/2024 Patient referral [facility] Work Phone: Spirometry panel Incentive viktoriya metry Respiratory Care Routine Every 2hr while awake until discontinued starting 12/13/2021 [employer] Work Phone: Comment on above: Every 2hr while awak e until discontinued starting 12/13/2021 Surgical Pathology Surgical Path ology Lab Routine Release Upon Ordering for 1 Occurrences starting 06/15/2021 [employer] Work Phone: Comment on above: Release Upon Orderin g for 1 Occurrences starting 06/15/2021 Surgical Pathology Surgical Path ology Lab Routine Release Upon Ordering for 1 Occurrences starting 12/13/2021 [employer] Phone: Comment on above: Release Upon Orderin g for 1 Occurrences starting 12/13/2021 Surgical Pathology Surgical Path ology Lab Routine Vaginal dysplasia Release Upon Ordering for 1 Occurrences starting 06/28/2022 [employer] Phone: Comment on above: Release Upon Orderin g for 1 Occurrences starting 06/28/2022 End: 06-28-2022 SURGICAL PATHOLOGY REPORT SURGICAL PATHOLOGY REPORT Lab Routine Once for 1 Occurrences starting 06/28/2022 until 06/28/2022 [employer] Phone: Comment on above: Once for 1 Occurrenc es starting 06/28/2022 until 06/28/2022 End: 11-24-2022 SURGICAL PATHOLOGY REPORT SURGICAL PATHOLOGY REPORT Lab Routine Once for 1 Occurrences starting 11/24/2022 until 11/24/2022 [employer] Phone: Comment on above: Once for 1 Occurrenc es starting 11/24/2022 until 11/24/2022 [facility] Immunizations Immunization Date Immunization Notes Care Provider [facility] 07-12-2022 influenza virus vacc ine, unspecified formulation Iliana GAGNON [facility] 08-20-2021 SARS-CoV-2 (COVID-19 ) mRNA-1273 vaccine Iliana GAGNON [facility] 07-01-2021 influenza (HD-IIV4) vaccine, age 65+ yr, high dose, quadrivalent, PF (FLUZONE HIGH-DOSE) Wallace Stone MD Work Phone: [facility] 07-01-2021 influenza virus vacc ine, unspecified formulation Winnie Guzmán PA-C Work Phone: [facility] 11-06-2020 COVID-19, Moderna, P F, 100mcg/0.5mL Stv Xr [facility] 10-09-2020 COVID-19, Moderna, P F, 100mcg/0.5mL Stv Xr [facility] Work Phone: 06-10-2020 Seasonal trivalent influenza vaccine, adjuvanted, preservative free Wallace Stone MD Work Phone: [facility] 06-07-2017 influenza, high dose seasonal, preservative-free Wallace Stone MD Work Phone: [facility] 01-19-2017 pneumococcal polysaccharide vaccine, 23 valent Wallace Stone MD Work Phone: [facility] 06-29-2015 influenza, high dose seasonal, preservative-free Wallace Stone MD Work Phone: [facility] 06-23-2014 influenza, high dose seasonal, preservative-free Wallace Stone MD Work Phone: [facility] 06-15-2010 pneumococcal polysaccharide vaccine, 23 valent Wallace Stone MD Work Phone: [facility] 06-27-2007 influenza virus vacc ine, whole virus Wallace Stone MD Work Phone: [facility] Payers Date Payer Category Payer Self-pay [id number] 2023 Private Health Insurance [facility] [place] [id number] 2007 Medicare [id number]. 1.13.159. 2.7.3.636248.315 2007 Unknown [id number]. 1.13.159. 2.7.3.593305.315 2007 Unknown [id number] 1.2.840.562438.1.13.239. 2.7.3.336640.315 1959 Medicare [id number] 1.2.840.976760.1.13.239. 2.7.3.436844.315 1959 Self-pay [id number] 1959 Unknown [id number] 2.16.840.1.348045.19 1942 Unknown [id number] 2.16.840.1.865109.3.579. 2.593 1942 Unknown [id number] 2.16.840.1.368053.3.579. 2.593 1942 Unknown [id number] 2.16.840.1.884362.3.579. 2.593 1942 Unknown [id number] 2.16.840.1.840188.3.579. 2.593 1942 Unknown [id number] 2.16.840.1.867518.3.579. 2.593 1942 Unknown [id number] 2.16.840.1.717821.3.579. 2.593 1942 Unknown [id number] 2.16.840.1.706130.3.579. 2.593 1942 Unknown [id number] 2.16.840.1.301957.3.579. 2.593 1942 Unknown [id number] 2.16.840.1.437774.3.579. 2.593 1942 Unknown [id number] 2.16.840.1.617386.3.579. 2.593 1942 Unknown [id number] 2.16.840.1.123753.3.579. 2.593 1942 Unknown [id number] 2.16.840.1.643897.3.579. 2.593 1942 Unknown [id number] 2.16.840.1.977297.3.579. 2.593 1942 Unknown [id number] 2.16.840.1.733613.3.579. 2.593 1942 Unknown [id number] 2.16.840.1.098560.3.579. 2.593 1942 Unknown [id number] 2.16.840.1.977260.3.579. 2.593 1942 Unknown [id number] 2.16.840.1.106135.3.579. 2.593 1942 Unknown [id number] 2.16.840.1.104693.3.579. 2.593 1942 Unknown [id number] 2.16.840.1.148532.3.579. 2.593 1942 Unknown [id number] 2.16.840.1.116633.3.579. 2.593 1942 Unknown [id number] 2.16.840.1.977813.3.579. 2.593 1942 Unknown [id number] 2.16.840.1.586024.3.579. 2.593 1942 Unknown [id number] 2.16.840.1.348454.3.579. 2.593 1942 Unknown [id number] 2.16.840.1.873799.3.579. 2.593 1942 Unknown [id number] 2.16.840.1.880271.3.579. 2.593 1942 Unknown [id number] 2.16.840.1.073415.3.579. 2.593 1942 Unknown [id number] 2.16.840.1.966405.3.579. 2.593 1942 Unknown [id number] 2.16.840.1.366971.3.579. 2.727 1942 Unknown [id number] 2.16.840.1.494456.3.579. 2.727 1942 Unknown [id number] 2.16.840.1.010445.3.579. 2.727 1942 Unknown [id number] 2.16.840.1.826988.3.579. 2.727 1942 Unknown [id number] 2.16.840.1.516550.3.579. 2.727 1942 Unknown [id number] 2.16.840.1.066321.3.579. 2.727 1942 Unknown [id number] 2.16.840.1.079277.3.579. 2.727 1942 Unknown [id number] 2.16.840.1.998848.3.579. 2.175 1942 Unknown [id number] 2.16840.1.364915.3.579. 2.175 1942 Unknown [id number] 2.16840.1.872703.3.579. 2.175 1942 Unknown [id number] 2.16.840.1.758116.3.579. 2.1259 1942 Unknown [id number] 2.16840.1.153735.3.579. 2.1259 Medicare Medicare Outpatient [id number] Unknown [id number] 2.16840.1.589981.3.579. 2.531 Unknown [id number] 2.16.840.1.843288.3.579. 2.531 Social History Date Type Detail Facility Start: 05-12-2021 End: 06-20-2024 Tobacco smoking status NHIS Former smoker [employer] Phone: Start: 09-11-1962 End: 06-28-2018 History of tobacco use Current smoker [employer] Start: 09-11-1962 End: 06-28-2018 History of tobacco use Cigarette Smoker [employer] Start: 05-12-2021 End: 06-20-2024 Tobacco use and exposure Never used [employer] Start: 05-12-2021 End: 11-24-2022 Alcohol intake Ex-drinker (finding) [employer] Phone: Start: 1940 Sex Assigned At Not on file [facility] Phone: Start: 11-26-2021 End: 06-24-2022 Exposure to SARS-CoV-2 (event) Not sure [employer] Start: 06-15-2021 End: 06-20-2024 Cigarettes smoked current (pack per day) - Reported [facility] History of tobacco use Passive smoker [facility] [employer] Phone: Tobacco smoking status Never [facility] [place] Start: 02-14-2023 End: 06-20-2024 Sex Assigned At Female [facility] Start: 09-19-2022 End: 02-14-2023 Alcohol intake Current non-drinker of alcohol (finding) [facility] Start: 1940 Sex Assigned At Female F [facility] Tobacco smoking stat [facility] Tobacco smoking consumption unknown [facility] Start: 06-20-2024 End: 08-29-2024 Alcoholic beverage intake Lifetime non-drinker (finding) [facility] Medical Equipment Procedure Code Equipment Code Equipment [...] Facility 09-09-2022 Functional Status N/A [facility] Clinical Notes 05-12-2021 to 09-02-2024 Peyman Hensley DPM - 08/29/2024 10:00 AM Darius Hensley DPM - 06/20/2024 9:40 AM EDT Note Date & Type Note Facility 09-02-2024 Note RI Electrophysiology Consult Note RI Cardiology [facility] Reason for visit: s/p CRTD and AVN ablation, wound issues 09/02/24 Pt has come for wound check. It is clean but still has incision separation. No fever or discharge. 08/27/24 Pt presented for device check and at that time was noted to have skin erosion. Has granddaughter who is with her states that she was doing fine until she started wearing the bra strap over the device site and the constant throbbing has not caused the skin to open up. No fever and no discharge. The device is not visible but there is loss of skin integrity. Device check done today shows good function. Patient underwent the DIRECTOR OF ELEMENTARY EDUCATION placement on 07/10/2024 and subsequently underwent an AV node ablation on 08/12/2024. Prior HPI: Harman Mcleod is a 83 y.o. [...] in A-fib. She was just discharged from [facility] for GI bleed. Eliquis and aspirin [...] fibrillation (CMS/HCC) CAD (coronary artery disease) Cancer ([facility]/HCC) CHF (congestive heart failure) ([facility]/HCC) Chronic kidney disease COPD (chronic obstructive pulmonary disease) (CMS/HCC) Diabetes mellitus (CMS/HCC) GI bleed Heart murmur Hyperlipidemia Hypertension PVD (peripheral vascular disease) ([facility]/HCC) PSH: Past Surgical History: Procedure Laterality Date CARDIAC CATHETERIZATION 12/15/2011, 08/23/2010, 12/30/2004, CORONARY STENT PLACEMENT HYSTERECTOMY 03/11/2005 VASCULAR SURGERY SH: Social Determinants of Health Tobacco Use: Medium Risk (09/02/2024) Patient History Smoking Tobacco Use: Former Smokeless Tobacco Use: Never Passive Exposure: Past Alcohol Use: Not on file Financial Resource [...] Sexually Abused: Not on file Depression: Not at risk (09/02/2024) PHQ-2 PHQ-2 Score: 0 Housing Stability: Not on file Utilities: Not on file Health Literacy: Not on file Allergies: Allergies Allergen Reactions Ciprofloxacin Hives and Other Other reaction(s): Other: See Comments tendon issues tendon issues Cefdinir Other Tramadol Other Oxycodone Rash Rash & GI upset Oxycodone-Acetaminophen Other GI upset & rash Weight: 65.8kg Visit Vitals BP 142/83 (BP Location: Left arm, Patient Position: Sitting, BP Cuff Size: Adult long) Pulse 75 Ht 1.549 m (5' 1 ) Wt 65.8 kg (145 lb) BMI 27.40 kg/m??? OB Status Postmenopausal Smoking Status Former BSA 1.68 m??? Meds: Current Outpatient Medications on File Prior to Visit Medication Sig Dispense Refill albuterol 2.5 mg /3 mL (0.083 %) nebulizer solution USE 1 VIAL IN NEBULIZER 4 TIMES DAILY NEEDED anastrozole (Arimidex) 1 mg chemo tablet Take 1 mg by mouth in the morning Swallow whole with a drink of water. apixaban (Eliquis) 2.5 mg tablet Take 1 tablet (2.5 mg) by mouth two times daily. Do not start before August 19, 2024. 60 tablet 0 aspirin 81 mg EC tablet Take 81 mg by mouth. cholecalciferol (D3-5) 5,000 Units tablet in the morning. doxycycline (Vibra-Tabs) 100 mg tablet Take 1 tablet (100 mg) by mouth two times daily. Take with a full glass of water and do not lie down for at least 30 minutes after. 60 tablet 0 febuxostat (Uloric) 40 mg tablet Take 40 mg by mouth in the morning. ferrous sulfate 325 (65 Fe) MG tablet Take 325 mg by mouth two times daily. fish oil concen (more content not included)... [facility] 08-29-2024 History of Present illness Narrative Patient: Harman [...] left anterior braun wound for the past 4 months after hitting object. Currently sees [facility] wound center every 3 weeks with application of Medihoney only and had wound debridement on prior visit with discussion of possible further intervention by Podiatry. Patient states lesion resolved Patient also has questions concerning a black like lesion on her right leg that is been present for the past week and denies any trauma to the area and denies any history of skin cancer Allergies: No Known Allergies Past Medical History: No past medical history on file. Medications: Current Outpatient Medications: albuterol (2.5 MG/3ML) 0.083% nebulizer solution, USE 1 VIAL IN NEBULIZER 4 TIMES DAILY NEEDED, Disp: , Rfl: amLODIPine (Norvasc) 5 MG tablet, Take 1 tablet by mouth Daily, Disp: , Rfl: anastrozole (Arimidex) 1 MG chemo tablet, Take 1 mg by mouth Daily., Disp: , Rfl: Eliquis 5 MG tablet, TAKE 1 TABLET BY MOUTH IN THE MORNING AND AT BEDTIME, Disp: , Rfl: febuxostat (Uloric) 40 MG tablet, Take 40 mg by mouth in the morning., Disp: , Rfl: ferrous sulfate 325 (65 Fe) MG tablet, Take 325 mg by mouth in the morning and 325 mg in the evening., Disp: , Rfl: hydrALAZINE (Apresoline) 100 MG tablet, Take 1 tablet by mouth in the morning and 1 tablet in the evening and 1 tablet before bedtime., Disp: , Rfl: isosorbide mononitrate ER (Imdur) 60 MG 24 hr tablet, Take 1 tablet by mouth Daily, Disp: , Rfl: Jardiance 10 MG, Take [...] Social History Narrative Not on file Social Drivers of Health Financial Resource Strain: Not on file Food Insecurity: Not on file Transportation Needs: Not on file Physical Activity: Not on file Stress: Not on file Social Connections: Not on file Intimate Partner Violence: Unknown (11/02/2023) Re[facility] from [facility] [place] Safety & Environment Fear of [...] left 2nd digital deformity at the PIPJ region. Medial right calf region has a 0.3 cm x 0.5 cm black neoplasm with raised borders of unknown origin. Left anterior braun has a healed area of ulceration with negative openings VASC: Negative DP and negative PT pedal pulses NEURO: 5.07 [place] Sybil monofilament test intact to digits and forefoot bilaterally 125Hz tuning fork diminished to 1st MPJ bilaterally ORTHO: Positive pain on palpation to nails 1 through 10 Positive pain palpation left anterior braun ASSESSMENT 1. 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 Diabetes mellitus due to underlying condition with diabetic polyneuropathy, 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 technician terminal and repeater insulin use (CMS/HCC) 3. Pain due to onychomycosis of toenails of both feet 4. Venous insufficiency 5. Neoplasm of uncertain behavior of skin PLAN Discussed proper foot care with patient [...] Continue with compression stockings for venous stasis Discussed possible need for biopsy of lesion will continue to monitor and follow up and if still issue may consider possible punch biopsy Sharp debridement with 15 blade of subcutaneous ulceration to left leg with active bleeding noted and removal and excision of fibrotic and necrotic tissue to wound and DSD applied . Patient currently has the [facility] wound center applying Medihoney every other day. Did discuss possibility if no improvement to contact Podiatry for advanced wound care treatments or if any signs of infection Peyman Hensley DPM documented in this encounter [facility] 08-27-2024 Note [place] Electrophysiology Consult Note [place] Cardiology - [facility] Reason for visit: s/p CRTD and AVN ablation, wound issues 08/27/24 Pt presented for device check and at that time was noted to have skin erosion. Has granddaughter who is with her states that she was doing fine until she started wearing the bra strap over the device site and the constant throbbing has not caused the skin to open up. No fever and no discharge. The device is not visible but there is loss of skin integrity. Device check done today shows good function. Patient underwent the DIRECTOR OF ELEMENTARY EDUCATION placement on 07/10/2024 and subsequently underwent an AV node ablation on 08/12/2024. Prior HPI: Harman Mcleod is a 83 y.o. [...] in A-fib. She was just discharged from [facility] for GI bleed. Eliquis and aspirin [...] kidney disease COPD (chronic obstructive pulmonary disease) ([facility]/HCC) Diabetes mellitus ([facility]/HCC) GI bleed Heart murmur Hyperlipidemia Hypertension PVD (peripheral vascular disease) ([facility]/HCC) PSH: Past Surgical History: Procedure Laterality Date CARDIAC CATHETERIZATION 12/15/2011, 08/23/2010, 12/30/2004, CORONARY STENT PLACEMENT HYSTERECTOMY 03/11/2005 VASCULAR SURGERY SH: Social Determinants of Health Tobacco Use: Medium Risk (06/20/2024) [facility] Patient History Smoking Tobacco Use: Former Smokeless Tobacco Use: Never Passive Exposure: Not on file Alcohol Use: Not on file Financial Resource Strain: Not on file Food Insecurity: Not on file Transportation Needs: Not on file Physical Activity: Not on file Stress: Not on file Social Connections: Not on file Intimate Partner Violence: Unknown (11/02/2023) [place] Fear of Current or Ex-Partner: Not on file Emotionally Abused: Not on file Physically Abused: Not on file Sexually Abused: Not on file Physically or Sexually Abused: Not on file Depression: Not at risk (02/14/2023) [facility] PHQ-2 PHQ-2 score: 0 Housing Stability: Not on file Utilities: Not on file Health Literacy: Not on file Allergies: Allergies Allergen Reactions Ciprofloxacin Hives and Other Other reaction(s): Other: See Comments tendon issues tendon issues Cefdinir Other Tramadol Other Oxycodone Rash Rash & GI upset Oxycodone-Acetaminophen Other GI upset & rash Weight: No weight available Visit Vitals OB Status Postmenopausal Smoking Status Former Meds: Current Outpatient Medications on File Prior to Visit Medication Sig Dispense Refill albuterol 2.5 mg /3 mL (0.083 %) nebulizer solution USE 1 VIAL IN NEBULIZER 4 TIMES DAILY NEEDED anastrozole (Arimidex) 1 mg chemo tablet Take 1 mg by mouth in the morning Swallow whole with a drink of water. apixaban (Eliquis) 2.5 mg tablet Take 1 tablet (2.5 mg) by mouth two times daily. Do not start before August 19, 2024. 60 tablet 0 aspirin 81 mg EC tablet Take 81 mg by mouth. cholecalciferol (D3-5) 5,000 Units tablet in the morning. febuxostat (Uloric) 40 mg tablet Take 40 mg by mouth in the morning. ferrous sulfate 325 (65 Fe) MG tablet Take 325 mg by mouth two times daily. fish oil concentrate (Hampshire-3) 120-180 mg capsule Take 1,000 mg by mouth. furosemide (Lasix) 40 mg tablet Take 40 mg by mouth every other day. glimepiride (Amaryl) 4 mg tablet Take 4 mg by mouth in the morning and at bedtime. hydrALAZINE (Apresoline) 100 mg tablet Take 100 mg by mouth if needed in the morning, at noon, and at bedtime. For SBP >130 insulin glargine (L (more content not included)... [facility] 08-12-2024 Note AV NODE ABLATION PRO CEDURE REPORT DATE OF PROCEDURE: 08/12/2024 PERFORMING PHYSICIAN: Dr. Brian Potter THROW OUT CLERK: SAVAGE CONSENT: Patient NAME OF THE PROCEDURE: AV node ablation LOCATION: EP Lab INDICATIONS FOR PROCEDURE: 1. Atrial fibrillation with RVR. PROCEDURAL SEDATION: Versed and Fentanyl. Moderate sedation was administered by the sedation nurse under my supervision and noted in the CVL log. Intraprocedural face to face sedation time: 31 min. Monitoring: Cardiac telemetry, Blood pressure, continuous pulse oxymetry. FLUROSCOPY: Os EBL: 5cc SPECIMEN REMOVED: None PROCEDURE PERFORMED: 1. Comprehensive EP study. 2. Pre and post ablation device testing. 3. AV node ablation. 4. U/S guided venous access INDICATIONS: 83year old with past medical history of [...] in A-fib. She was just discharged from [facility] for GI bleed. Eliquis and aspirin have been put on hold. She was originally scheduled for DCCV today with Dr. Keyes. Jardiance was stopped, and metoprolol was reduced to 100mg daily.She underwent DIRECTOR OF ELEMENTARY EDUCATION on 07/10/24 and now presents for AVN ablation. On the day of presentation, she was noted to be in Afb with RVR. The device was programmed to VVI 40 and thresholds checked. PROCEDURAL DETAILS: The patient was brought to the electrophysiology laboratory and continuous electrocardiographic monitoring was instituted. After a procedural pause identifying the patient, the procedure I decided to proceed following administration of antibiotics. Patient was placed in supine position. The right groin was prepped and draped. Using ultrasound guidance, the right femoral vein was identified and noted to be patent and image stored. Venous access was obtained and a Vizigo sheath was placed in the right femoral vein. Irrigated 4mm thermoccol ablation catheter was then advanced to the His location. HV was 68s. At this point, I decided to just proceed with AV node ablation. The catheter was advanced to His location. His area was tagged. The catheter was advanced to the His location. I went on to perform ablation at 40watts. The catheter was flexed and ablation was performed leading to a complete heart block with junctional escape at 41bpm and later to ventricular pacing 40bpm. At this time, I decided to stop the ablation. The device was re-programmed and thresholds were noted to have unchanged. The device was programmed VVIR at 85 beats per minute. Sheaths and catheters were removed and hemostasis was achieved. POST PROCEDURE EXAM: Patient was hemodynamically stable. COMPLICATIONS: None. IMPRESSION: 1. Successful AV Node ablation. 2. Device thresholds pre and post ablation. RECOMMENDATIONS: 1. No heavy lifting for 1 week. 2. Follow up in EP clinic in 1 month. 3. Continue anticoagulation. Brian Potter MD Cardiac Electrophysiology. [facility] 08-12-2024 Note Patient: Harman rubio Procedure Information Date/Time: 08/12/24 1230 Procedure: AV node ablation - PC APPROVED Location: [facility] RATING CLERK 1 EP / [facility] VASCULAR LAB (Cath) Providers: Brian Potter MD Clinical information reviewed: Allergies Meds OB Status Physical Exam Airway Mallampati: II TM distance: >3 FB Neck ROM: full Cardiovascular Dental Pulmonary Abdominal Anesthesia Plan ASA 2 CSE Additional Equipment Requests [facility] 07-17-2024 Note [place] Cardiology - [facility] Subjective Harman Mcleod is [...] List Diagnosis Angina pectoris (CMS/HCC) Atherosclerosis of cocopah coronary artery of cocopah heart without angina pectoris Dyslipidemia Dyspnea Gastroesophageal [...] she underwent BiV ICD implant by Dr. Potter on 07/10/2024. She was here initially for [...] for AV shad ablation. I called Dr. Potter who reported that he is planning to [...] Diagnosis Date Abnormal ECG Arrhythmia Atrial fibrillation ([facility]) CAD (coronary artery disease) Cancer ([facility]) CHF (congestive heart failure) ([facility]) Chronic kidney disease COPD (chronic obstructive pulmonary disease) ([facility]) Diabetes mellitus ([facility]) GI bleed Heart murmur Hyperlipidemia Hypertension PVD (peripheral vascular disease) ([facility]) Past Surgical History: Procedure Laterality Date CARDIAC [...] 1 (more content not included)... [facility] 07-10-2024 Note DIRECTOR OF ELEMENTARY EDUCATION-D IMPLANT PROCED URE NOTE DATE OF PROCEDURE: 07/10/2024 PERFORMING PHYSICIAN: Dr. Brian Potter THROW OUT CLERK: SAVAGE CONSENT: Patient LOCATION: [employer] Safety Officer PROCEDURE PERFORMED: 1. Implantation of Biventricular ICD ([employer]) 2. U/S venous access 3. Coronary [...] be in A-fib. She was just [facility] for GI bleed. Eliquis and aspirin [...] dizziness/lightheadedness. Decision was made to proceed with DIRECTOR OF ELEMENTARY EDUCATION-D device and an AVN ablation. PROCEDURAL DETAILS: [...] occasions using seldinger technique using a 5 Beninese micropunture needle and exchanged for 0.034 wire. I decided to proceed with opening of the pocket. Localinfiltration of 1% Lidocaine was performed and an incision was created in the left upper chest. Dissection was then performed using cautery down. An active fixation [employer] ICD lead was then delivered through the 8F sheath to the right ventricle. After confirmation of lead position on orthogonal views (JAIMES and DOMINICAN) to confirm position in the septal aspect, [...] postero-lateral branch that was fairly good size. [place]-Tammy catheter was then taken out and a 90degree inner cannula was advanced into the CS. The amplatz wire was removed and then a0.24 wire was used as a emily wire. I then used a whisper wire and this tracked into the posterolateral vein. [employer] S shaped lead was advanced over 0.014 wire into the lateral border. Once the guiding sheaths were removed, the lead was secured in the pocket using three 0- Silk sutures.The leads were then attached to a [employer] DIRECTOR OF ELEMENTARY EDUCATION-D device and the leads tug tested and [...] o (more content not included)... [facility] 07-10-2024 Note Patient: Harman rubio Procedure Information Date/Time: 07/10/24 1200 Procedure: Implant ICD - biventricular - PC APPROVED [employer] Location: [facility] RATING CLERK 1 EP / [facility] VASCULAR LAB (Cath) Providers: Brian Potter MD Clinical information reviewed: Allergies Meds Physical Exam Airway Mallampati: II TM distance: >3 FB Cardiovascular Dental Pulmonary Abdominal Anesthesia Plan ASA 3 CSE Anesthetic plan and risks discussed with patient. Use of blood products discussed with patient who. Additional Equipment Requests [facility] 07-10-2024 Note Betadine nasal swabs completed. Pt did CHG wipes last night. Pt stated that the wipes made her break out. Pt does not want to use the wipes again preprocedure. [facility] 07-02-2024 Note [place] Electrophysiology Consult Note [place] Cardiology [facility] Reason for visit: Afib HPI: Harman [...] in A-fib. She was just discharged from [facility] for GI bleed. Eliquis and aspirin [...] disease) Cancer (CMS/HCC) CHF (congestive heart failure) ([facility]) Chronic kidney disease COPD (chronic obstructive pulmonary disease) ([facility]) Diabetes mellitus ([facility]) GI bleed Heart murmur Hyperlipidemia Hypertension PVD (peripheral vascular disease) ([facility]) PSH: Past Surgical History: Procedure Laterality Date [...] on file Intimate Partner Violence: Unknown (11/02/2023) [place] Fear of Current or [...] mouth two times daily. fish oil concentrate (Hampshire-3) 120-180 mg capsule Take 1,000 mg by [...] bedti (more content not included)... [facility] 06-20-2024 History of Present illness Narrative Patient: [...] 2 months after hitting object. Currently sees [facility] wound center every 3 weeks with [...] Partner Violence: Unknown (11/02/2023) Received from [facility] [place] [facility] Environment Fear of [...] and negative PT pedal pulses NEURO: 5.07 [place] Sybil monofilament test intact to digits and forefoot bilaterally 125Hz tuning fork diminished to 1st MPJ bilaterally ORTHO: Positive pain on palpation to nails 1 through 10 Positive pain palpation left anterior braun ASSESSMENT 1. Venous insufficiency 2. Hav (hallux abducto valgus), left 3. Acquired deformity of left toe 4. 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 ([facility]) 5. Diabetes mellitus due to underlying condition with diabetic polyneuropathy, 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 assisted insulin use ([facility]) 6. Pain due to onychomycosis of toenails [...] DSD applied . Patient currently has the [facility] wound center applying Medihoney every other day. Did discuss possibility if no improvement to contact Podiatry for advanced wound care treatments or if any signs of infection Peyman Hensley DPM documented in this encounter [facility] 06-12-2024 Note [place] Cardiology - [facility] Subjective Harman Mcloed is a 83 y.o. year old female patient being seen for follow up echo performed on 06/04/2024. Denies chest pain, SOB, and palpitations. Feels good but is tired today. BP at home was 107/71 today and yesterday 114/55. Patient Active Problem List Diagnosis Angina pectoris (CMS/HCC) Atherosclerosis of cocopah coronary artery of cocopah heart without angina pectoris Dyslipidemia Dyspnea Gastroesophageal [...] orie (more content not included)... [facility] 05-27-2024 Note Remains on ASA No c/o angina or concerns [facility] 05-27-2024 Note As above [facility] 05-27-2024 Note [id number]= 6-7 at least with Age, Sex, CHF, CAD/Vascular disease, HTN, DM Currently per assessment she appears to be in rhythm heart rate well-controlled with metoprolol 200 mg daily and she remains on Eliquis anticoagulation without any bleeding tendencies or concerns. [facility] 05-27-2024 Note Lipid abnormalities are elevated therefore will increase zocor to 40 mg daily. Will repeat lipid level and liver function in 2-3 months [facility] 05-27-2024 Note Congestive heart ivanemily todd is stable without worsening symptoms NDHC II -currently patient is euvolemic without exacerbation. She has returned home from nursing home facility and presents today with granddaughter who [...] rehospitalization for heart failure exacerbation [facility] 05-27-2024 Note Hypertension current ly is well-controlled at 106/67 Continue amlodipine, hydralazine, Imdur, Toprol and spironolactone Currently renal function normal, no acute concerns. [facility] 05-27-2024 Note Coronary artery dise ase is [...] tolerated and continue all medications. [facility] 05-27-2024 Note Pt is here for a one year follow up. Pt denies chest pain, palpatations, sob. Review of Systems All other systems reviewed and are negative. [facility] 05-27-2024 Note [facility] CARDIOLOGY PROGR ESS NOTE [...] fluid overload-of which she was discharged to nursing home facility until this past December. She has [...] systems reviewed and are negative Admit to [facility] 02/13/24 DC Summary DS: Summary Hospital [...] 81 mg by mouth. fish oil concentrate (Hampshire-3) 120-180 mg capsule Take 1,000 mg by [...] tabl (more content not included)... [facility] 04-10-2024 Progress note Note Date/Time April 10, 2024 10:30am [facility] [address] [place] [address] Wound Center Provider Note Signed Patient: Harman Mcleod MR#: [id number] : 1940 Acct:[id number] Age/Sex: 83 / F Copies to: MD Janell Oliver, FERNY~ HPI Date of Visit Date of Visit: Date of Service: 04/10/2024 Time of Service: 10:26 Narrative HPI: 12/11/23 Harman is an 83 year old presenting to [facility] wound care for an initial [...] present for the entire visit, she has [facility], the left leg will be treated [...] wrapped again today for good measure and [facility] can remove next week and start stockings or wraps if something is open on the legs, family and friend present for the visit, does not need to return to the office unless new ulcers do develop, spoke about her getting established with a nursing surgical services director and so hopefully she will follow through [...] to go to the ED per the [facility] nurse but she had refused this [...] to vascular for the PAD in the e- she understands and her granddaughter does too, no acute infection noted, 2 week appt Subjective Pain Left Leg: Pain Description: Intermittent Pain Intensity: 0 Right Leg: Pain Description: Intermittent Wound/Ulcer History When did wound start?: August 2023 bilateral lower leg ulcers Mode of Arrival/ Automotive Machinist: Friend Assistive Device Used Today: Walker Lives with:: Significant Other Appetite Description: Within Normal Limits Who helps w/ dressing change?: Home Health Why Do You Need Help?: Can't Reach Ulcer, Limited mobility, Unsafe leave home byself and Taxing effort to leave home Smoking Status: Former smoker [facility] Medical History (Updated 04/10/24 @ 10:30 [...] List clean-up per request of Phys. EHR [facility] Family History (Updated 06/01/23 @ 08:45 by [...] DAILY 04/25/19 [History Confirmed 12/11/23] omega-3s 300 [id number] oil 1,000 mg capsule (Hampshire-3 Fish Oil) 2 cap PO BID 04/25/19 [...] Stasis Ulcer Thickness: Skin Breakdown Bed Appearance: Walcott Percent of Wound Bed Granulated/Red: 100 Percent [...] <Electronically signed by FERNY Mathews> 04/10/24 1030 [facility] Work Phone: 1(935) 479-422407-16-2024 Progress note Author Janell Mathews [facility] March 26, 2024 9:51am Note Date/Time March 26, 2024 9:[address] [facility] [address] [place] [address] Wound Center Provider Note Signed Patient: Harman Mcleod MR#: [id number] : 1940 Acct:[id number] Age/Sex: 83 / F Copies to: MD Janell Oliver APRN~ HPI Date of Visit Date of Visit: Date of Service: 03/26/2024 Time of Service: 09:47 Narrative HPI: 12/11/23 Harman is an 83 year old presenting to [facility] wound care for an initial [...] present for the entire visit, she has [facility], the left leg will be treated [...] wrapped again today for good measure and [facility] can remove next week and start stockings or wraps if something is open on the legs, family and friend present for the visit, does not need to return to the office unless new ulcers do develop, spoke about her getting established with a nursing surgical services director and so hopefully she will follow through [...] to go to the ED per the [facility] nurse but she had refused this [...] bilateral lower leg ulcers Mode of Arrival/ Automotive Machinist: Friend Assistive Device Used Today: Walker Lives with:: Significant Other Appetite Description: Within Normal Limits Who helps w/ dressing change?: Home Health Why Do You Need Help?: Can't Reach Ulcer, Limited mobility, Unsafe leave home byself and Taxing effort to leave home Smoking Status: Former smoker [facility] Medical History (Updated 02/13/24 @ 10:54 [...] List clean-up per request of Phys. EHR [facility] Hyperthyroidism Problem List clean-up per request of Phys. EHR [facility] Diabetes mellitus Problem List clean-up per request of Phys. EHR Cmte Hypertension Problem List clean-up per request of Phys. EHR [facility] Surgical History History of bladder suspension procedure Problem List clean-up per request of Phys. EHR [facility] H/O: hysterectomy Problem List clean-up per request of Phys. EHR Cmte History of appendectomy Problem List clean-up per request of Phys. EHR Cmte History of heart artery stent Problem List clean-up per request of Phys. EHR [facility] Family History (Updated 06/01/23 @ 08:45 by [...] DAILY 04/25/19 [History Confirmed 12/11/23] omega-3s 300 cj-zsm-yed-other ststk1c-nmel oil 1,000 mg capsule (Hampshire-3 Fish Oil) 2 cap PO BID 04/25/19 [...] Breakdown Bed Appearance: Epithelial Tissue or Bridge, Walcott and Yellow Percent of Wound Bed Granulated/Red: [...] <Electronically signed by FERNY Mathews> 03/26/24 0951 [facility] Work Phone: 1(701) 701-449406-04-2024 Progress note Author Janell Mathews [facility] February 13, 2024 10:55am Note Date/Time February 13, 2024 10:[address] [facility] [address] [place] [address] Wound Center Provider Note Signed Patient: Harman Mcleod MR#: [id number] : 1940 Acct:[id number] Age/Sex: 83 / F Copies to: MD Janell Oliver APRN~ HPI Date of Visit Date of Visit: Date of Service: 02/13/2024 Time of Service: 10:47 Narrative HPI: 12/11/23 Harman is an 83 year old presenting to [facility] wound care for an initial [...] present for the entire visit, [facility], the [facility] will [facility] [...] spoke about her getting established with a nursing surgical services director and so hopefully she will follow through [...] to go to the ED per the [facility] nurse but she had refused this and wanted to come to this appt instead Subjective Pain Left Leg: Pain Description: Intermittent Pain Intensity: 0 Wound/Ulcer History When did wound start?: August 2023 bilateral lower leg ulcers Mode of Arrival/ Automotive Machinist: Friend Assistive Device Used Today: Walker Lives with:: Significant Other Appetite Description: Within Normal Limits Who helps w/ dressing change?: Home Health Why Do You Need Help?: Can't Reach Ulcer, Limited mobility, Unsafe leave home byself and Taxing effort to leave home Smoking Status: Former smoker [facility] Medical History (Updated 02/13/24 @ 10:54 [...] List clean-up per request of Phys. EHR [facility] Surgical History History of bladder suspension procedure Problem List clean-up per request of Phys. EHR Cmte H/O: hysterectomy Problem List clean-up per request of Phys. EHR [facility] History of appendectomy Problem List clean-up per request of Phys. EHR Cmte History of heart artery stent Problem List clean-up per request of Phys. EHR [facility] Family History (Updated 06/01/23 @ 08:45 by [...] DAILY 04/25/19 [History Confirmed 12/11/23] omega-3s 300 az-vco-gaw-other brxzt0m-hpcr oil 1,000 mg capsule (Hampshire-3 Fish Oil) 2 cap PO BID 04/25/19 [...] Posterior Thigh: Bed Appearance: Beefy Red and Walcott Percent of Wound Bed Granulated/Red: 0 Percent [...] <Electronically signed by FERNY Mathews> 02/13/24 1055 [facility] Work Phone: 1(645) 178-709505-21-2024 Progress note Author Janell Mathews [facility] January 30, 2024 10:44am Note Date/Time January 30, 2024 10:[address] [facility] [address] [place] [address] Wound Center Provider Note Signed Patient: Harman Mcleod MR#: [id number] : 1940 Acct:[id number] Age/Sex: 83 / F Copies to: MD Janell Oliver APRN~ HPI Date of Visit Date of Visit: Date of Service: 01/30/2024 Time of Service: 10:37 Narrative HPI: 12/11/23 Harman is an 83 year old presenting to [facility] wound care for an initial [...] present for the entire visit, she has [facility], the left leg will be treated [...] spoke about her getting established with a nursing surgical services director and so hopefully she will follow through [...] bilateral lower leg ulcers Mode of Arrival/ Automotive Machinist: Friend Assistive Device Used Today: Walker Lives with:: Significant Other Appetite Description: Within Normal Limits Who helps w/ dressing change?: Home Health Why Do You Need Help?: Can't Reach Ulcer, Limited mobility, Unsafe leave home byself and Taxing effort to leave home Smoking Status: Former smoker [facility] Medical History (Updated 01/30/24 @ 10:43 [...] List clean-up per request of Phys. EHR [facility] Surgical History History of bladder suspension procedure Problem List clean-up per request of Phys. EHR Cmte H/O: hysterectomy Problem List clean-up per request of Phys. EHR Cmte History of appendectomy Problem List clean-up per request of Phys. EHR Cmte History of heart artery stent Problem List clean-up per request of Phys. EHR [facility] Family History (Updated 06/01/23 @ 08:45 by [...] DAILY 04/25/19 [History Confirmed 12/11/23] omega-3s 300 qx-ytz-aym-other hsccv5z-agou oil 1,000 mg capsule (Hampshire-3 Fish Oil) 2 cap PO BID 04/25/19 [...] Posterior Thigh: Bed Appearance: Beefy Red and Walcott Percent of Wound Bed Granulated/Red: 100 Percent [...] <Electronically signed by FERNY Mathews> 01/30/24 1044 [facility] Work Phone: 1(127) 868-341404-18-2024 Progress note Author Janell Mathews [facility] December 28, 2023 11:22am Note Date/Time December 28, 2023 11: 22am [facility] [address] [place] [address] Wound Center Provider Note Signed Patient: Harman Mcleod MR#: [id number] : 1940 Acct:[id number] Age/Sex: 83 / F Copies to: MD Janell Oliver APRN~ HPI Date of Visit Date of Visit: Date of Service: 12/28/2023 Time of Service: 11:19 Narrative HPI: 12/11/23 Harman is an 83 year old presenting to [facility] wound care for an initial [...] present for the entire visit, she has [facility], the left leg will be treated [...] wrapped again today for good measure and [facility] can remove next week and start stockings or wraps if something is open on the legs, family and friend present for the visit, does not need to return to the office unless new ulcers do develop, spoke about her getting established with a nursing surgical services director and so hopefully she will follow through on that, spoke about compression socks too forlong term use Subjective Pain Left Leg: Pain Intensity: 0 Wound/Ulcer History When did wound start?: August 2023 bilateral lower leg ulcers Mode of Arrival/ Automotive Machinist: Friend Assistive Device Used Today: Walker Lives with:: Significant Other Appetite Description: Within Normal Limits Who helps w/ dressing change?: Home Health Why Do You Need Help?: Can't Reach Ulcer, Limited mobility, Unsafe leave home byself and Taxing effort to leave home Smoking Status: Former smoker [facility] Medical History (Updated 12/11/23 @ 09:30 [...] List clean-up per request of Phys. EHR [facility] Family History (Updated 06/01/23 @ 08:45 by [...] DAILY 04/25/19 [History Confirmed 12/11/23] omega-3s 300 an-dsy-vyk-other mzmzb8o-vwow oil 1,000 mg capsule (Hampshire-3 Fish Oil) 2 cap PO BID 04/25/19 [...] <Electronically signed by FERNY Mathews> 12/28/23 1122 [facility] Work Phone: 1(803) 719-646604-01-2024 Progress note Author Janell Mathews [facility] December 11, 2023 9:35am Note Date/Time December 11, 2023 9:[address] [facility] [address] [place] [address] Wound Center Provider Note Signed Patient: Harman Mcleod MR#: [id number] : 1940 Acct:[id number] Age/Sex: 83 / F Copies to: MD Janell Oliver APRN~ HPI Date of Visit Date of Visit: Date of Service: 12/11/2023 Time of Service: 09:27 Narrative HPI: 12/11/23 Harman is an 83 year old presenting to [facility] wound care for an initial [...] present for the entire visit, she has [facility], the left leg will be treated [...] bilateral lower leg ulcers Mode of Arrival/ Automotive Machinist: Friend Assistive Device Used Today: Walker Lives with:: Significant Other Appetite Description: Within Normal Limits Who helps w/ dressing change?: Home Health Why Do You Need Help?: Can't Reach Ulcer, Limited mobility, Unsafe leave home byself and Taxing effort to leave home Smoking Status: Former smoker [facility] Medical History (Updated 12/11/23 @ 09:30 [...] DAILY 04/25/19 [History Confirmed 12/11/23] omega-3s 300 mk-xer-zfx-other dyzcv3f-wymx oil 1,000 mg capsule (Hampshire-3 Fish Oil) 2 cap PO BID 04/25/19 [...] Breakdown Bed Appearance: Epithelial Tissue or Bridge, Walcott and Yellow Percent of Wound Bed Granulated/Red: [...] By: <Electronically signed by FERNY Mathews> 12/11/23934 [facility] Work Phone: 1(475) 943-491510-10-2023 NoteHNO ID: [id number] Author: Winnie Guzmán PA-C Service: ? Author Type: Physician Salicylic Acid Blender Type: Progress Notes Filed: 06/20/2023 3:58 PM Note Text: PATIENT NAME: Harman Mcleod CLINIC NO.: [id number] ATTENDING PHYSICIAN: Wallace Stone MD DATE OF [...] Negative LVI, 2 SNL negative, ER and NH >95% positive, Her2 IHC 1+ Treatment History: [...] 6.4 10/24/2017 7.3 Al (more content not included)...[facility]10-10-2023 Nurse Note * Lina Lopes MA - 06/20/2023 2:49 PM EDT Patient would like to know if she needs a mammogram? She was told in Oct that she would need one in6 months. Lina Lopes MA documented in this encounterUk Healthcare10-10-2023 History of Present illness Narrative* Winnie Guzmán PA-C - 06/20/2023 2:30 PM EDT Images from the original note were not included. PATIENT NAME: Harman Mcleod [facility] NO.: [id number] ATTENDING PHYSICIAN: Wallace Stone MD DATE OF [...] Negative LVI, 2 SNL negative, ER and NH >95% positive, Her2 IHC 1+ Treatment History: [...] Range Status 06/20/2023 4.8 % Final Abs [place] Date Value Ref Range Status 06/20/2023 0.49 [...] follow up. R Breast T1b,N0,M0- ER and NH >95% positive and Her-2 IHC 1+ tumor post Lumpectomy and SNL 10/2022. Reviewed path and she elected not to proceed with XRT and started Arimidex in 11/2022. Continues to tolerate well. Mammogram in 07/2023 (order placed). See us in 4 months. Plan is for 5 years of AI therapy Osteoporosis- On Prolia started 08/[address] Perry Vulvar high grade dysplasia- Follows Car [facility] Installer Onc at [facility] R Leg swelling and pain and h/o PVD- Follows vascular HTN--managed by PCP Winnie Guzmán PA-C CC: MD Mateus Spicer MD documented in this encounterUk Healthcare09-21-2023 Evaluation note* Encounter Date Diagnosis Assessment Notes [...] In addition I took her to the Occupational Health And Safety Officer and performed a right iliac venogram which [...] offer her a second opinion at the [facility] vascular medicine program. She declined. I will see her as needed in the future. [facility] Other 06-29-2023 Evaluation note* Encounter Date Diagnosis [...] to call us with any concerns whatsoever. [facility] Other 06-06-2023 NoteHNO ID: [id number] Author: Wallace Stone MD Service: ? Author Type: Physician Type: Progress Notes Filed: 02/14/2023 10:49 AM Note Text: PATIENT NAME: Harman Mcleod CLINIC NO.: [id number] ATTENDING PHYSICIAN: Wallace Stone MD DATE OF [...] Negative LVI, 2 SNL negative, ER and NH >95% positive, Her2 IHC 1+ Treatment History: [...] 04/28/2020 1.12 BUN (mg/dL) (more content not included)...[facility]06-06-2023 History of Present illness Narrative* Wallace Stone MD - 02/14/2023 10:37 AM EDT Images from the original note were not included. PATIENT NAME: Harman Mcleod CLINIC NO.: [id number] ATTENDING PHYSICIAN: Wallace Stone MD DATE OF [...] Negative LVI, 2 SNL negative, ER and NH >95% positive, Her2 IHC 1+ Treatment History: [...] Range Status 02/14/2023 8.3 % Final Abs [place] Date Value Ref Range Status 02/14/2023 0.86 [...] follow up. R Breast T1b,N0,M0- ER and NH >95% positive and Her-2 IHC 1+ tumor post Lumpectomy and SNL 10/2022. Reviewed path and she elected not to proceed with XRT and started Arimidex in 11/2022 and toleraing well. Plan for 5 years of therapy. Osteoporosis- On Prolia started 08/[address] Perry Vulvar high grade dysplasia- Follows Car [facility]er Onc at [facility] R Leg swelling and pain and h/o PVD- Follows vascular HTN Rash- refer to Derm Thank you for the kind referral. If there are any questions and or concerns please do not hesitate to contact me at [phone]. Wallace Stone MD Hematology/Medical Oncology [facility] I spent a total of 30 minutes on the date of the service which included preparing to see the patient, [id number] patient care, completing clinical documentation, obtaining and/or reviewing separately obtained history, performing a medically appropriate examination, counseling and educating the pat ient/family/caregiver, and ordering medications, tests, or procedures. CC: MD Mateus Spicer MD documented in this encounterUk Healthcare03-29-2023 Evaluation note* Encounter Date Diagnosis Assessment Notes [...] primary care provider as well as her elastic attacher chainstitch. We will continue to follow her along and see her again in a couple of months and see how she is doing with her pumps, conservative efforts, and weight management. She knows to call us in the meantime with any other additional concerns or complaints. [facility] Other [facility]-21-[facility]* Encounter Date Diagnosis Assessment [...] specified soft tissue disorders (ICD-10 - M79.89) [facility] Other 03-08-2023 Miscellaneous Notes* Telephone Encounter - Adriana Pereira Pss - 11/16/2022 8:40 AM EST Called Vascular office spoke with Jessy. They have received this referral and have patient scheduledwith Dr Gonzales on 11/23 @ 10:00. Adriana Pereira Pss * Telephone Encounter - Kira Ko [facility] - 11/10/2022 9:38 AM EST Records faxed. * Telephone Encounter - Adriana Pereira [facility] - 11/10/2022 8:46 AM EST Janeth: Information ready for you. Adriana Pereira Pss * Telephone Encounter - Carlos Brooks - 11/09/2022 2:44 PM EST Vascular Consult [facility] Previous patient of Dr. Mendez 3 years or more. Janeth/Dudley: Can you please refer patient and follow up? Thanks! Carlos Brooks documented in this encounterUk Healthcare03-01-2023 NoteHNO ID: [id number] Author: Wallace Stone MD Service: ? Author Type: Physician Type: Progress Notes Filed: 11/09/2022 2:24 PM Note Text: PATIENT NAME: Harman Mcleod CLINIC NO.: [id number] ATTENDING PHYSICIAN: Wallace Stone MD DATE OF SERVICE: November 09, [address] Banks referring provider defined for this encounter. here is an update on a follow up visit on female Harman Mcleod at the clinic 11/09/2022 Diagnosis: T1b, N0, M0- R breast, Tumor 9 mm, Grade 2, Margins negative, Negative LVI, 2 SNL negative, ER and NH >95% positive, Her2 IHC 1+ Treatment History: [...] (mg/dL) Date Value 0 (more content not included)...[facility]03-01-2023 History of Present illness Narrative* Wallace Stone MD - 11/09/2022 2:00 PM EST Images from the original note were not included. PATIENT NAME: Harman Mcleod CLINIC NO.: [id number] ATTENDING PHYSICIAN: Wallace Stone MD DATE OF SERVICE: November 09, 2022 Dear No referring provider defined for this encounter. here is an update on a follow up visit on female Harman Mcleod at the clinic 11/09/2022 Diagnosis: T1b, N0, M0- R breast, Tumor 9 mm, Grade 2, Margins negative, Negative LVI, 2 SNL negative, ER and NH >95% positive, Her2 IHC 1+ Treatment History: [...] follow up. R Breast T1b,N0,M0- ER and NH >95% positive and Her-2 IHC 1+ tumor post Lumpectomy and SNL 10/2022. Reviewed path and she may skip radiation and also discussed hormonal; therapy with an AI and she will start Arimidex. Discussed adverse events and she wishes to proceed. Osteoporosis- On Prolia started 08/[address] Perry Vulvar high grade dysplasia- Follows [facility] Onc at [place] and next appointment 11/24/2022 CRI R Leg swelling and pain and h/o PVD- refer to vascular HTN Thank you for the kind referral. If there are any questions and or concerns please do not hesitate to contact me at [phone]. Wallace Stone MD Hematology/Medical Oncology [facility] [place] spent a total of 30 minutes on the date of the service which included preparing to see the patient, [id number] patient care, completing clinical documentation, obtaining and/or reviewing separately obtained history, performing a medically appropriate examination, counseling and educating the pat ient/family/caregiver, and ordering medications, tests, or procedures. CC: MD Mateus Spicer MD documented in this encounterUk Healthcare02-08-2023 NoteOPERATIVE NOTE OPERATION DATE: 10/19/2022 PREOPERATIVE DIAGNOSIS: Right breast cancer. POSTOPERATIVE DIAGNOSIS: Right breast cancer. PROCEDURE: Needle localized right breast lumpectomy with sentinel lymph node biopsy. SURGEON: Iliana Gagnon M.D. ANESTHESIA: General laryngeal mask airway. COSMETOLOGIST: SADI Hammer ESTIMATED BLOOD LOSS: Less than [...] in good condition. CC: Mateus Perry M.D.[facility] [id number] NoteEXAMINATION: XR CHEST 2 V HISTORY: Pre-surgery [...] Electronically authenticated by: ALFONSO GEORGE Date: 2022-10-11 12:11[facility]01-13-2023 NoteHNO ID: [id number] Author: Marcin Shah MD Service: ? Author Type: Physician Type: Progress Notes Filed: 2022 6:06 AM Note Text: Radiation Oncology - New Patient/Consult Note PATIENT NAME: Harman Mcleod PATIENT REQUESTING PHYSICIAN: Dr. 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 PATIENT IDENTIFICATION: This patient was seen in the Department of Radiation Oncology at the [facility] with Marcin Shah MD. She was accompanied today by her family. Final recommendations will be communicated back to the requesting physician by way of the shared medical record, or letter to requesting physician via US mail. HISTORY OF PRESENT ILLNESS: Ms. Mcleod is an 82-year-old woman from [place], [place] who was discovered on screening mammogram from July 2022 to have an abnormality within the anterior upper outer quadrant of the right breast. This was confirmed on ultrasound and she underwent stereotactic biopsy on 08/19/2022 with pathology revealing intermediate grade IDC that was ER/NH positive HER2 negative. She has met with [...] acetaminophen (TYLENOL EXTRA STRENGTH (more content not included)...[facility]01-12-2023 History of Present illness Narrative* Marcin Shah MD - 09/22/2022 11:38 PM EST Images from the original note were not included. Radiation Oncology - New Patient/Consult Note PATIENT NAME: Harman Mcleod PATIENT Signed: Marcin Shah MD I spent a total of 60 minutes on the date of the service which included preparing to see the patient, [id number] patient care, and counseling and educating the patient/family/caregiver. This document has been created with the use of voice recognition technology. It may contain inaccuracies, misspellings, inaccurate syntax or inappropriate word context that are a result of the inadequacies/shortcomings of said technology/software. documented in this encounterUk Healthcare01-12-2023 NoteHNO ID: [id number] Author: Wallace Stone MD Service: ? Author Type: Physician Type: Progress Notes Filed: 09/22/2022 5:19 PM Note Text: PATIENT NAME: Harman Mcleod CLINIC NO.: [id number] ATTENDING PHYSICIAN: Wallace Stone MD DATE OF [...] provisional grade 1 through 2, ER and NH greater than 95% positive, HER2/holden negative with an IHC score of 1+ and FISH negative at [facility]. This patient was subsequently referred to Dr. Iliana Gagnon for surgical consultation. Patient denies any previous history of abnormal mammograms and or breast biopsy. She has had a recent bone density in [place] and was diagnosed with osteoporosis and started on Prolia as well. Patient has a sister who was diagnosed with breast cancer at the age of 82 and her daughter diagnosed with breast cancer at the age of 37. She quit smoking approximately 4 years ago. 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 She [...] mouth daily at bedtime. Cut in half Qczbi-3-TWW-EPA-Fish Oil 1,000 mg (120 mg-180 mg) cap [...] mellitus, type 2) (HCC) (more content not included)...[facility]01-12-2023 History of Present illness Narrative* Wallace Stone MD - 09/22/2022 5:10 PM EST Images from the original note were not included. PATIENT NAME: Harman Mcleod CLINIC NO.: [id number] ATTENDING PHYSICIAN: Wallace Stone MD DATE OF [...] provisional grade 1 through 2, ER and NH greater than 95% positive, HER2/holden negative with an IHC score of 1+ and FISH negative at [facility]. This patient was subsequently referred to Dr. Iliana Gagnon for surgical consultation. Patient denies any previous history of abnormal mammograms and or breast biopsy. She has had a recent bone density in [place] and was diagnosed with osteoporosis and started on Prolia as well. Patient has a sister who was diagnosed with breast cancer at the age of 82 and her daughter diagnosed with breast cancer at the age of 37. She quit smoking approximately 4 years ago. 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 She [...] mouth daily at bedtime. Cut in half Vizqa-8-OZS-EPA-Fish Oil 1,000 mg (120 mg-180 mg) cap [...] ductal carcinoma, provisional grade 1-2, ER and NH greater than 95% positive, HER2/holden negative with [...] me to participate in Mrs. Harman Mcleod [facility], ifthere are any questions or concerns please do not hesitate to contact me at the number below. Wallace Stone M.D. Hematology/Medical Oncology [facility] [phone] CC: MD Mateus Spicer MD I spent a total of 60 minutes on the date of the service which included preparing to see the patient, [id number] patient care, completing clinical documentation, obtaining and/or reviewing separately obtained history, performing a medically appropriate examination, counseling and educating the pat ient/family/caregiver, ordering medications, tests, or procedures, and communicating with other HCPs (not separately reported). documented in this encounterUk [facility]01-12-2023 Miscellaneous Notes* Telephone Encounter - Lars Wilkerson [...] involved. Lars Wilkerson RN documented in this encounterUk Healthcare12-30-2022 NoteChief Complaint consultation for right breast cancer [...] biopsy that r evealed invasive ductal carcinoma, ER/NH +; Her2 holden negative; patient denies change [...] gms IV prior to OR SCDs Ordered: [facility] External Ambulatory Referral [facility] External Ambulatory Referral 2. Chronic anticoagulation (Z79.01: halfway (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) hold Eliquis 2 days prior to surgery, if ok with Cardiology. 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 Garza. documented [facility] Phone: 1(299) 345-658910-18-2022 Hospital Discharge instructions* Discharge Instructions* Brody Ken [...] urinate call your doctor documented in this [facility] Phone: 1(178) 696-397404-04-2022 History of Present illness Narrative* Brody Ken [...] Plunkett MD - 12/13/2021 2:12 PM EDT Car Electronics Installer Oncology Attending Note Patient seen and evaluated [...] chart for or 12/13/21 documented in this [facility] Phone: [phone]) 631-451704-04-2022 Evaluation note* Diagnosis Vaginectomy w/ Cysto 4/4/22- Primary Other postprocedural status documented in this encounter [employer] Phone: [phone]) 379-310704-04-2022 Hospital Discharge instructions* Instructions* Brody Ken RN [...] of: May 19, 2021 Content Version: 13.2 [employer]priet[employer]ireto. Care instructions adapted under license by [employer]. If you have questions about a medical condition or this instruction, always ask your healthcare professional. [employer] disclaims any warranty or liability for your [...] urinate call your doctor documented in this [facility] [employer] Work Phone: 1(118) 836-314603-28-2022 History of Present illness Narrative* YANA Wallis [...] Disease: Yes, stents x 3, Dr. Keyes ([facility]) Hypertension: yes Active smoker: Quit 2017, [...] YOANNA DIAZ PA-C 12/06/21 3:54 PM * Byorn Oshea RN - 12/06/2021 3:[address] garza and pcp potassium 3.3,wbc 12.6 documented in this [facility] Phone: [phone]) 867-795003-25-2022 Hospital Discharge instructions* Instructions* Yoanna Diaz, YANA - 12/03/2021 Images from the original note [...] drive you home after your procedure. Your truck driver flatbed must be 18 years of age or [...] questions, call the Pre-Admission Testing Unit at [phone]. Day of Surgery/Procedure As a patient at [facility] you can expect quality medical and nursing care that is centered on your individual needs. Our goal is to make your surgical experience as comfortableas possible . Directions to the Surgery Center [facility] is located at [address] [place] [address]. Please pull into the Emergency parking lot and stop at the corporate travel consultant richards. We offer free corporate travel consultant service for all our surgery patients, if you choose not to have corporate travel consultant parking we have additional parking across the street.You will enter the facility following the [facility] sign. Please stop at the bilingual medical receptionist desk where you will be checked in by the staff. If you have any questions please call [phone]. Transportation after your procedure. You will need a friend or family member to drive you home after your procedure. Your truck driver flatbed must be18 years of age or older [...] You may shave your face or neck. [place] your teeth but do not swallow [...] or the day of surgery, please call [phone], or [phone] documented in this [facility] Phone: 1(222) 148-993610-05-2021 History of Present illness Narrative* Parvin Rogel RN - 06/15/2021 10:[address] Kamla gan, pt cleared for phase II * Alla Dickerson DO - 06/15/2021 9:42 AM EDT OB Resident Progress Note Patient may be discharged home once she has met criteria in the PACU. Please perfect serve or page HUMAN RESOURCES SERVICES SPECIALIST resident listed below with any questions, concerns, or if patient has not met PACU discharge criteria in 2-3 hours. . Please page first. Alla Dickerson DO HUMAN RESOURCES SERVICES SPECIALIST Resident PGY3 Pager: [phone] [facility] 06/15/2021, 9:42 AM documented in this [facility] Phone: [phone]) [phone] Hospital Discharge instructions* Instructions* Alla Dickerson DO [...] cleared by your physician documented in this [email or web address] Phone: [phone]) 462-113209-01-2021 Hospital Discharge instructions* Instructions* Na Cabezas APRN - ELECTRICIAN SUBSTATION - 05/12/2021 Pre-operative Instructions Please arrive at [...] public transportation ALONE is not acceptable. -Your truck driver flatbed must be 18 years of age or [...] Surgery/Procedure As a patient at [facility] you can expect quality medical and nursing care that is centered on your individual needs. Our goal is to make your surgical experience as comfortableas possible . Directions to the Surgery Center [facility] is located at [address] [place] [address]. Please pull into the Emergency/Surgery Center parking lot and stop at the corporate travel consultant richards. We offer free corporate travel consultant service for all our surgery patients, if you choose not to have corporate travel consultant parking we have additional parking across the [...] pharmacy bottles in a zip lock bag. [place] your teeth but do not swallow [...] DAY OF your surgery, you may call [phone] documented in this [email or web address] Phone: [phone]) [phone] History of Present illness Narrative* Mandy Baker RN - 05/12/2021 1:30 PM EDT Medical clearance obtained for OR on 05/18/2021. * Na Cabezas APRN - GERRY - 05/12/2021 1:30 PM EDT Anesthesia Focused [...] Pedal edema Pneumonia PVD (peripheral vascular disease) ([facility]) Thyroid disease Under care of team 05/12/2021 dr Perry [facility]-last visit apr 2021 Under care of team 05/12/20[facility] Varicose vein of leg Patient was evaluated in [facility] & anesthesia guidelines were applied. NPO guidelines, medication instructions and scheduled arrival time were reviewed with patient. Anesthesia contacted: Yes I spoke with Dr. Rondon. Patient history and pertinent findings reviewed. Patient with history of CAD, CHF, stress test and cardiac echo (results not in Epic, from outside provider), cardiac stentx 3. Last saw elastic attacher chainstitch in December 2020. On Eliquis and aspirin prescribed from her elastic attacher chainstitch. Medical or cardiac clearance ordered: cardiac FERNY Andres CNP 05/12/21 2:43 PM documented in this [facility] Work Phone: evaluation + Plan noteGeneral Surgery [place] Evaluation + Plan note Future Appointments Appointment Date:11/08/2022 02:00:00 PM Scheduled Provider:Iliana GAGNON MD Location:[facility] Appointment Type:[place] [id number] General Surgery [place] Evaluation + Plan note Future Appointments Appointment Date:11/22/2022 01:40:00 PM Scheduled Provider:Iliana GAGNON MD Location:[facility] Appointment Type: Established 15 General Surgery [place] Evaluation note* Diagnosis Pre-op chest exam Pre-operative respiratory examination documented in this encounter [employer] 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 Phone: evalranujo note* Diagnosis Pre-op chest exam Pre-operative respiratory examination documented in this encounter [employer] 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 documented in this encounter [employer] [employer] Phone: evaldzrbjq note* Diagnosis 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, estrogen receptor positive (HCC)- Primary documented in this encounter [facility]* Diagnosis 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 breast in female, estrogen receptor positive (HCC)- Primary documented in this encounter [facility]* Diagnosis 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, estrogen receptor positive (HCC)- Primary Claudication in peripheral vascular disease (HCC) Peripheral vascular disease, unspecified documented in this encounter [facility] noteNo assessment information [facility] Work Phone: Evaluation noteNo InformationNort [employer] 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, estrogen receptor positive (HCC)- Primary Rash Rash and other nonspecific skin eruption Other eczema Stage 3a chronic kidney disease (HCC) documented in this encounter [facility] note* Diagnosis 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, estrogen receptor positive (HCC)- Primary Stage 3a chronic kidney disease (HCC) documented [facility] this [facility]* Diagnosis Onset Date Resolution Status Altered mental status acute Diabetes mellitus acute Edema of both lower legs acu te Inflammation acute Leg ulcer, left acute Leg wound, right acute Open wound of left thigh acu te Uses walker acute Varicose veins of both legs with edema acute [facility] Work Phone: Evaluation note* Diagnosis Onset Date Resolution Status Altered mental status acute Diabetes mellitus acute Edema of both lower legs acu te Inflammation acute Leg ulcer, left acute Leg wound, right acute Open wound of left thigh acu te PAD (peripheral artery disease) acute Uses walker acute Varicose veins of both legs with edema acute [facility] Work Phone: Evaluation note* Diagnosis Hav (hallux abducto valgus), left- Primary Venous insufficiency Unspecified venous (peripheral) insufficiency Acquired deformity of left toe 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 to underlying condition with diabetic polyneuropathy, 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 technician terminal and repeater insulin use ([facility]) Pain due to onychomycosis of toenails of both feet [facility] Diagnosis 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)- Primary Diabetes mellitus due to underlying condition with diabetic polyneuropathy, 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 assisted insulin use (CMS/HCC) Pain due to onychomycosis of toenails of both feet Venous insufficiency Unspecified venous (peripheral) insufficiency Neoplasm of uncertain behavior of skin documented in this encounter [facility] HealthcareHistory general Narrative - Reported* Type Description Date Medical History DIABETES Medical History HTN Medical History ASTHMA Medical History 3 HEART STENT AND 1 LEG Medical History HYPERLIPIDEMIA Medical History HYPOTHYROID Medical History PAD Surgical History STENT PLACEMENTS Surgical History PSEUDO ANURYSM Surgical History BLADDER SUSPENSION Surgical History HYSTERECTOMY Surgical History RLE & RT RENAL DSA'S, ANGIOPLAS TIES & STENTING 04-25-2019 [employer] Other History general Narrative - Reported* Type [...] History VAGINAL ABLASION OF CANCER CELL S [employer] Other Hospital course Narrative No data available for this section [facility] Discharge instructions No data available for this section General Surgery [place] Progress note No data available for this section [facility] Reason for referral (narrative) Referred by: Iliana GAGNON MD Referred by: Iliana GAGNON MD General Surgery [facility] Reqmil for referral (narrative)* Diagnostic Procedure Only (Routine) - Pending Review Specialty Diagnoses / Procedures Referred By Jacinta fernandez Referred To Contact [facility] Diagnoses 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, estrogen receptor positive (HCC) Procedures MAGNO DIAGNOSTIC BILATERAL DIAGNOSTIC MAMMOGRAPHY COMPUTER-AIDED DETCJ Winnie Guzmán PA-C [address] [place] [address] [place] [address] [facility] [address] [place] [address] Referral ID Status Reason Start Date Expiration Date Visits Requested Visits Authorized [id number] Pending Review Auto-Generat ed Referral 3 07/19/2024 1 1 [facility] for visit Narrative* Auth/Cert Specialty Diagnoses / Procedures Referred By Jacinta fernandez Referred To Contact Diagnoses Vaginal dysplasia VAGINAL DYSPLASIA Procedures NH OFFICE/OUTPT VISIT,PROCEDURE ONLY NH COMPLETE REMOVAL OF VAGINA WALL NH CYSTOURETHROSCOPY CYSTOSCOPY, VAGINECTOMY Emma Garza MD [address] [facility] [address] [place] [address] [employer] [address] [place] [address] Referral ID Status Reason Start Date Expiration Date Visits Re quested Visits Authorized [id number] 1 1 [employer] Phone: Summary Purpose Family History No Family History Records Found Relationship Condition Age at Onset Recorded Date/T josephine father Unknown mother Unknown Advance Directives No Advanced Directives Records FoundLatest Code Status on File Code Status Date Activated Date Inactivated Comments Full Code 06/28/2022 6:57 AM Documents on File Type Date Recorded Patient Director Learning Services Expl anation Advance Directive(s) 01/16/2017 3:59 PM Documents on File Type Date Recorded Patient Director Learning Services Expl anation Advance Directive(s) 01/16/2017 3:59 PM [...] [address] [place] [address] Specialty Diagnoses / Procedures Referred By Contac t Referred To Contact Cardiology Diagnoses Pre-op chest exam Procedures EKG 12 lead Kimmie, [place], PA-C [address] [place] [address] Referral ID Status Reason Start Date Expiration Date Visits Re quested Visits Authorized [id number] Open 11/22/2021 11/22/2022 1 1 Specialty Diagnoses / Procedures Referred By Contac t Referred To Contact Vascular Surgery Diagnoses Claudication in peripheral vascular disease (HCC) Procedures CONSULT TO VASCULAR SURGERY OFFICE/OUTPATIENT [facility] 60-74 MINUTES Wallace Stone MD [address] [place] [address] Referral ID Status Reason Start Date Expiration Date Visits Requested Visits Authorized [id number] Authorized PCP Requested Referral 11/16/2022 11/09/2023 1 1 Specialty Diagnoses / Procedures Referred By Contac t Referred To Contact Dermatology Diagnoses Rash Other eczema Procedures CONSULT TO DERMATOLOGY OFFICE/OUTPATIENT [facility] 60-74 MINUTES Wallace Stone MD [address] [place] [address] Referral ID Status Reason Start Date Expiration Date Visits Requested Visits Authorized [id number] Authorized PCP Requested Referral 02/14/2023 02/14/2024 1 [...] DATE CREATED AUTHOR 02/05/[address] [facility] DATE CREATED AUTHOR AUTHOR'S ORGANIZ ATION 01/22/2023 [facility] DATE CREATED AUTHOR AUTHOR'S ORGANIZ ATION 06/22/2023 [facility] DATE CREATED AUTHOR AUTHOR'S ORGANIZ ATION 06/23/2023 [facility] [place] [facility] DATE CREATED AUTHOR AUTHOR'S ORGANIZ ATION 07/13/2023 [facility] DATE CREATED AUTHOR AUTHOR'S ORGANIZ ATION 05/03/2024 [facility] DATE CREATED AUTHOR AUTHOR'S ORGANIZ ATION 09/01/2024 [facility] DATE CREATED AUTHOR AUTHOR'S ORGANIZ ATION 09/05/[address] [facility] Reason for Visit (unrecogniz ed section and content) Status Reason Specialty Diagnoses / Procedures Re ferred By Contact Referred To Contact Diagnoses 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 Procedures NH REMOVE VAGINA WALL, PARTIAL NH COLPOSCOPY,CERVIX W/ADJ VAGINA PARTICAL VAGINECTOMY WITH ULTRASONIC SCAPEL VAGINAL COLPOSCOPY WITH MICROSCOPE Kin Abarca MD [address] [facility] [address] [place] [address] [facility] Specialty Diagnoses / Procedures Referred By Contac t Referred To Contact Diagnoses Vaginal dysplasia VAGINAL DYSPLASIA Procedures NH OFFICE/OUTPT VISIT,PROCEDURE ONLY NH DESTRUCT,VAGINAL LESION(S),SIMPLE CO2 LASER VAPORIZATION OF LESIONS ([employer] CONF# [id number] - JEREMIAS) Emma Garza MD [address] [facility] [address] [place] [address] [facility] [address] [place] [address] Referral ID Status Reason Start Date Expiration Date Visits Re quested Visits Authorized [id number] 1 1 Reason Comments Care Coordination Surgery [...] 25 g 1 06/28/2022 bacitracin-polymyxin b (POLYSPORIN) [id number] UNIT/GM ointment Apply topically 2 times daily. [...] g 0 06/28/2022 06/28/2022 bacitracin-polymyxin b (POLYSPORIN) [id number] UNIT/GM ointment Apply topically 2 times daily. [...] ider: Sukhdev Bailey RN)1425 (Paused - Provider: FRENY Mackenzie CRNA - Comment: Switch to gravity)[id number] [...] Janell Mathews APRN Attending Provider Active art: April 09, 2024 End: April 09, 2024 Team Status: Inactive Member Role Status Dates Mateus Perry MD Primary Care Provider Active Start: April 24, 2024 End: April 24, 2024 Janell Mathews APRN Attending Provider Active art: April 24, 2024 End: April 24, 2024 Team Status: Active Member Role Status Dates Mateus Perry MD Primary Care Provider Active Start: March 26, 2024 Janell Mathews APRN Attending Provider Active art: March 26, 2024 Supervisor Cell Operation Relationship Specialty Start Date End Date Mateus Perry MD [address] [place] [facility] [place] [address] PCP - General Family Medicine 03/04/21 Supervisor Cell Operation Relationship Specialty Start Date End Date Mateus Perry MD [address] [place] [facility] [place] [address] PCP - General Family Medicine 03/04/21 Supervisor Cell Operation Relationship Specialty Start Date End Date Mateus Perry MD [address] [place] [facility] [place] [address] PCP - General Family Medicine 03/04/21 Supervisor Cell Operation Relationship Specialty Start Date End Date Mateus Perry MD [address] [place] [facility] [place] [address] PCP - General Family Medicine 03/04/21 Supervisor Cell Operation Relationship Specialty Start Date End Date Mateus Perry MD PCP - General Family Medicine 01/05/17 Supervisor Cell Operation Relationship Specialty Start Date End Date Mateus Perry MD PCP - General Family Medicine 01/05/17 Supervisor Cell Operation Relationship Specialty Start Date End Date Mateus Perry MD PCP - General Family Medicine 01/05/17 Supervisor Cell Operation Relationship Specialty Start Date End Date Mateus Perry MD PCP - General Family Medicine 01/05/17 Supervisor Cell Operation Relationship Specialty Start Date End Date Mateus Perry MD PCP - General Family Medicine 01/05/17 Supervisor Cell Operation Relationship Specialty Start Date End Date Mateus Perry MD PCP - General Family Medicine 01/05/17 Supervisor Cell Operation Relationship Specialty Start Date End Date Mateus Perry MD [address] [place] [address] PCP - General Family Medicine 03/04/21 Team Status: Inactive Member Role Status Dates Mateus Perry MD Primary Care Provider Active Christiano Gonzales MD Attending Provider Active Supervisor Cell Operation Relationship Specialty Start Date End Date Mateus Perry MD PCP - General Family Medicine 01/05/17 Supervisor Cell Operation Relationship Specialty Start Date End Date Mateus Perry MD PCP - General Family Medicine 01/05/17 Team Status: Inactive Member Role Status Dates Mateus Perry MD Primary Care Provider Active Start: May 01, 2024 End: May 01, 2024 Christiano Gonzales MD Attending Provider Active Start: May 01, 2024 End: May 01, 2024 Supervisor Cell Operation Relationship Specialty Start Date End Date Mateus Perry MD [address] [place] [address] PCP - General Family Medicine 02/14/24 Supervisor Cell Operation Relationship Specialty Start Date End Date Mateus Perry MD [address] [place] [address] PCP - General Family Medicine 02/14/24 Supervisor Cell Operation Relationship Specialty Start Date End Date Mateus Perry MD [address] [place] [address] PCP - General Family Medicine 02/14/24 Supervisor Cell Operation Relationship Specialty Start Date End Date Mateus Perry MD [address] [place] [address] PCP - General Family Medicine 02/14/24 Source Comments (unrecognize d section and content) In the event this informatio n is protected by the Federal Confidentiality of Alcohol and Drug Abuse Patient Records regulations: The Federal rules restrict any use of the information to criminally investigate or prosecute any alcohol or drug abuse patient.[facility] HealthcareIn the event this information is protected by the Federal Confidentiality of Alcohol and Drug Abuse Patient Records regulations: The Federal rules restrict any use of the information to criminally investigate or prosecute any alcohol or drug abuse patient.Uk HealthcareIn the event this information is protected by the Federal Confidentiality of Alcohol and Drug Abuse Patient Records regulations: The Federal rules restrict any use of the information to criminally investigate or prosecute any alcohol or drug abuse patient.Uk HealthcareIn the event this information is protected by the Federal Confidentiality of Alcohol and Drug Abuse Patient Records regulations: The Federal rules restrict any use of the information to criminally investigate or prosecute any alcohol or drug abuse patient.[facility] HealthcareIn the event this information is protected by the Federal Confidentiality of Alcohol and Drug Abuse Patient Records regulations: The Federal rules restrict any use of the information to criminally investigate or prosecute any alcohol or drug abuse patient.[facility] HealthcareIn the event this information is protected by the Federal Confidentiality of Alcohol and Drug Abuse Patient Records regulations: The Federal rules restrict any use of the information to criminally investigate or prosecute any alcohol or drug abuse patient.Uk HealthcareIn the event this information is protected by the Federal Confidentiality of Alcohol and Drug Abuse Patient Records regulations: The Federal rules restrict any use of the information to criminally investigate or prosecute any alcohol or drug abuse patient.[facility] HealthcareIn the event this information is protected by the Federal Confidentiality of Alcohol and Drug Abuse Patient Records regulations: The Federal rules restrict any use of the information to criminally investigate or prosecute any alcohol or drug abuse patient.[facility] Goals (unrecognized section and content) Goals may [...] BE BASED ON THE PRIMARY CLINICAL RECORDS. [facility]. provides no warranty or guarantee of the accuracy or completeness of information in this document.
[2024-09-05] MEDS: KETOROLAC TROMETHAMINE 30 MG/ML VIAL 15 MG IVP (17:07)
--- NOTE | 2024-09-05 17:09 | ED_ITS ---
HPI HPI - Extremity Injury (Upper) General Chief Complaint: Extremity Injury, Upper Stated Complaint: swelling, weakness Time Seen by Provider: 09/05/24 16:53 Source: patient Mode of arrival: ambulance Limitations: no limitations History of Present Illness HPI narrative: The patient presented to us with a left upper extremity pain that she has been having almost for the last few days . The patient just had a pacemaker placed Monday 4 days ago, she denies any fall or trauma she is complaining of a lot of pain of the left upper extremity, Related Data Home Medications ?Medication ?Instructions ?Recorded ?Confirmed albuterol sulfate 2.5 mg/3 mL 2.5 mg inhalation Q6H PRN 03/04/23 06/26/24 (0.083 %) solution for nebulization shortness of breath or wheezing anastrozole 1 mg tablet 1 mg PO DAILY 03/04/23 06/26/24 aspirin 81 mg tablet,delayed 81 mg PO DAILY 03/04/23 06/26/24 release (Adult Low Dose Aspirin) furosemide 40 mg tablet 40 mg PO Q12H 03/04/23 06/26/24 isosorbide mononitrate 60 mg 60 mg PO DAILY 03/04/23 06/26/24 tablet,extended release 24 hr levothyroxine 112 mcg tablet 112 mcg PO .ACB 03/04/23 06/26/24 liothyronine 5 mcg tablet 10 mcg PO .ACB 03/04/23 06/26/24 metoprolol succinate 200 mg 200 mg PO DAILY 03/04/23 06/26/24 tablet,extended release 24 hr simvastatin 20 mg tablet 20 mg PO BEDTIME 03/04/23 06/26/24 sucralfate 1 gram tablet 1 g PO [facility] 03/04/23 06/26/24 febuxostat 40 mg tablet 40 mg PO DAILY 08/20/23 06/26/24 insulin glargine 100 unit/mL 10 unit subcut QA 10/14/23 06/26/24 subcutaneous solution (Lantus U-100 Insulin) insulin aspart U-100 100 unit/mL 3 - 15 unit subcut [facility] 10/17/23 06/26/24 (3 mL) subcutaneous pen (Novolog FlexPen U-100 Insulin aspart) amlodipine 10 mg tablet 10 mg PO .qd 02/13/24 06/26/24 empagliflozin 10 mg tablet 10 mg PO .QD 06/26/24 06/26/24 (Jardiance) ferrous sulfate 325 mg (65 mg 325 mg PO BID 06/26/24 06/26/24 iron) tablet glimepiride 4 mg tablet 4 mg PO BID 06/26/24 06/26/24 metformin 500 mg tablet 500 mg PO BIDWM 06/26/24 06/26/24 simvastatin 40 mg tablet 40 mg PO .QHS 06/26/24 06/26/24 spironolactone 25 mg tablet 12.5 mg PO QAM 06/26/24 06/26/24 Previous Rx's ?Medication ?Instructions ?Recorded apixaban 5 mg tablet (Eliquis) 2.5 mg (1/2 x 5 mg) PO BID #60 tabs 02/19/24 hydralazine 50 mg tablet 50 mg PO TID #90 tabs 02/19/24 pantoprazole 40 mg tablet,delayed 40 mg PO BID #60 tabs 06/27/24 release (Protonix) Allergies Allergy/AdvReac Type Severity Reaction Status Date / Time oxycodone AdvReac Severe nausea and Verified 09/05/24 16:39 vomiting tramadol AdvReac Severe Vomiting Verified 09/05/24 16:39 cefdinir AdvReac Unknown Vomiting Verified 09/05/24 16:39 ciprofloxacin AdvReac Unknown Vomiting Verified 09/05/24 16:39 Opioid HPI Opioid Management Most Recent Pain and Opioid Data: Last Pain Scale 0 02/19/24 15:19 02/19/24 Last Pain Intensity 9 10/17/23 09:55 10/17/23 Last ORT Total Score 0 06/26/24 09:58 06/26/24 Last ORT Risk Category Low Risk 06/26/24 09:58 06/26/24 Review of Systems ROS Status of ROS 10 or more systems reviewed and unremark able except as noted in history and below [facility] Medical History (Updated 09/05/24 @ 18:23 by Margie Green MD) Lower gastrointestinal hemorrhage ?K92.2 - Gastrointestinal hemorrhage, unspecified (ICD-10) Anemia in stage 4 chronic kidney disease ?N18.4 - Chronic kidney disease, stage 4 (severe) (ICD-10) ?D63.1 - Anemia in chronic kidney disease (ICD-10) Abscess, gluteal, right ?L02.31 - Cutaneous abscess of buttock (ICD-10) Morbid obesity ?E66.01 - Morbid (severe) obesity due to excess calories (ICD-10) History of tobacco abuse ?Z87.891 - Personal history of nicotine dependence (ICD-10) Acute renal failure ?N17.9 - Acute kidney failure, unspecified (ICD-10) Elevated diaphragm ?J98.6 - Disorders of diaphragm (ICD-10) Pleural effusion ?J90 - Pleural effusion, not elsewhere classified (ICD-10) COPD with acute exacerbation ?J44.1 - Chronic obstructive pulmonary disease with (acute) exacerbation (ICD-10) Acute hypoxic respiratory failure ?J96.01 - Acute respiratory failure with hypoxia (ICD-10) Acute on chronic diastolic CHF (congestive heart failure) ?I50.33 - Acute on chronic diastolic (congestive) heart failure (ICD-10) Type 2 diabetes mellitus ?E11.9 - Type 2 diabetes mellitus without complications (ICD-10) Hypoxemia ?R09.02 - Hypoxemia (ICD-10) Abscess ?L02.91 - Cutaneous abscess, unspecified (ICD-10) Abscess ?L02.91 - Cutaneous abscess, unspecified (ICD-10) Cellulitis and abscess of left leg ?L03.116 - Cellulitis of left lower limb (ICD-10) ?L02.416 - Cutaneous abscess of left lower limb (ICD-10) Hyperkalemia ?E87.5 - Hyperkalemia (ICD-10) Moderate protein-calorie malnutrition ?E44.0 - Moderate protein-calorie malnutrition (ICD-10) CHF (congestive heart failure) ?I50.9 - Heart failure, unspecified (ICD-10) Hypoxia ?R09.02 - Hypoxemia (ICD-10) Acute infective exacerbation of chronic obstructive airway disease ?J44.1 - Chronic obstructive pulmonary disease with (acute) exacerbation (ICD-10) Weakness ?R53.1 - Weakness (ICD-10) Acute right hip pain ?M25.551 - Pain in right hip (ICD-10) Rheumatoid arthritis flare ?M06.9 - Rheumatoid arthritis, unspecified (ICD-10) Difficulty in walking ?R26.2 - Difficulty in walking, not elsewhere classified (ICD-10) Arthralgia ?M25.50 - Pain in unspecified joint (ICD-10) CAD, multiple vessel ?I25.10 - Atherosclerotic heart disease of [place] coronary artery without angina pectoris (ICD-10) Atrial fibrillation ?I48.91 - Unspecified atrial fibrillation (ICD-10) COPD (chronic obstructive pulmonary disease) ?J44.9 - Chronic obstructive pulmonary disease, unspecified (ICD-10) Gouty arthritis ?M10.9 - Gout, unspecified (ICD-10) Hypothyroidism (acquired) ?E03.9 - Hypothyroidism, unspecified (ICD-10) Hypokalemia ?E87.6 - Hypokalemia (ICD-10) Iron deficiency anemia ?D50.9 - Iron deficiency anemia, unspecified (ICD-10) Surgical History (Updated 02/18/24 @ 00:31 by Zena Bhakta) H/O right mastectomy ?Z90.11 - Acquired absence of right breast and nipple (ICD-10) H/O: hysterectomy ?Z90.710 - Acquired absence of both cervix and uterus (ICD-10) History of appendectomy ?Z90.49 - Acquired absence of other specified parts of digestive tract (ICD- 10) H/O heart artery stent ?Z95.5 - Presence of coronary angioplasty implant and graft (ICD-10) Family History (Updated 10/14/23 @ 23:05 by Zena Bhakta) Father Family history of CHF (congestive heart failure) Family history of cancer Family history of hypertension Sister Family history of cancer Family history of diabetes mellitus Mother Family history of diabetes mellitus Family history of hypertension Social History (Updated 02/13/24 @ 18:21 by Kira Meza LPN) Within the past year, how often did you have a drink containing alcohol: never Within the past year, how often did you have six or more drinks on one occasion: never Score interpretation: A score less than 3 is consistent with normal alcohol consumption. Smoking status: Former smoker Non-prescribed substance use: denies use Previous occupational history: retired Highest level of school completed/degree received: high school graduate Are you now , , , , never or living with a partner: In a typical week, how many times do you talk on the telephone with family, friends, or neighbors: 3 or more times per week How often do you get together with friends or relatives: 3 or more times per week How often do you attend taoist or confucianist services: 4 or more times per year Little interest or pleasure in doing things: not at all Feeling down, depressed, or hopeless: not at all Feel stressed/tense/nervous/anxious/difficulty sleeping: not at all Do you think of yourself as: straight/heterosexual Gender Identity: female Exam Narrative Exam Narrative: Nurses notes and vital signs reviewed and patient is not hypoxic. General: Well-appearing and in no apparent distress. Skin: Warm, dry, no pallor noted. No rash. Head: Normocephalic, atraumatic. Neck: Supple, non-tender. Eye: Pupils are equal, round and EOMI. No scleral icterus. Ears, Nose, Mouth, and Throat: TM are clear, no nasal mucosal hypertrophy. Oral mucosa is moist, no posterior oropharynx erythema, uvula is mid-line Cardiovascular: Regular Rate and Rhythm without murmur, gallop or rub. Respiratory: No accessory muscle use or respiratory distress. Lungs are clear to auscultation, no wheezing, rales or rhonchi Chest Wall: Dressing over previous pacemaker Back: No midline thoracic or lumbar vertebral tenderness. No CVA tenderness Musculoskeletal: The patient have tenderness upon palpation of the mid forearm down to her fingertips, there is redness and warmth felt in addition to tenderness the patient have a good radial pulse on the left side, and the capillary fill is adequate GI: Abdomen is soft, non-distended. Normal bowel sounds. No masses appreciated. No tenderness to palpation. No rebound, guarding, or rigidity noted. Neurological: A&O x4. No cranial nerve dysfunction observed. No truncal ataxia. Moves all extremities. Sensation intact. Psychiatric: Cooperative and interactive. Normal mood and affect. Constitutional Vital Signs, click to edit/add: Last Vital Signs Pulse 75 09/05/24 16:39 Resp 18 09/05/24 16:39 BP 138/71 09/05/24 16:39 Pulse Ox 96 09/05/24 16:39 O2 Del Method Room Air 09/05/24 16:39 Course Vital Signs Vital signs: Vital Signs Pulse Rate 75 09/05/24 16:39 Respiratory Rate 18 09/05/24 16:39 Blood Pressure 138/71 09/05/24 16:39 Pulse Oximetry 96 09/05/24 16:39 Oxygen Delivery Method Room Air 09/05/24 16:39 Pulse Rate 75 09/05/24 16:39 Respiratory Rate 18 09/05/24 16:39 Blood Pressure 138/71 09/05/24 16:39 Pulse Oximetry 96 09/05/24 16:39 Oxygen Delivery Method Room Air 09/05/24 16:39 MDM - Extremity Injury (Upper) MDM Narrative Medical decision making narrative: The patient presented to us with pain in her left hand in addition to redness and warmth that she noted over the last few days that is getting worse There was no nausea vomiting or any other concerns and the patient presentation after she is recently had a pacemaker replaced almost 3 days ago after she had the surgery [facility] initially on June of this year and she had a revision on Monday because of concern of what the patient mentioned was cleaning of the area The patient denies any fever at any time and she denies any other concerns she does take Eliquis for her A-fib and she was stopping it till it was started yesterday The patient blood workup showed elevated white blood cells in the CBC that is 14 lactic acid was mildly elevated at 2.3 but with the patient current presentation she has some acute on top of chronic kidney injury and she was started on IV fluid with caution 500 cc only right now after obtaining blood culture the patient was covered with Zosyn for possible infection Right now the x-ray of the left hand showed no acute pathology the x-ray of the chest shows no acute pathology as well Awaiting the results of the duplex of the lower extremity The patient EKG showed a paced rhythm heart rate was 88 Lab Data Labs: Lab Results 09/05/24 Range/Units 17:01 WBC 14.2 H (4.0-11.0) 10^3/uL RBC 3.09 L (4.20-5.40) 10^6/uL Hgb 9.5 L (12.0-16.0) g/dL Hct 29.3 L (36.0-48.0) % MCV 94.8 (81.0-99.0) fL MCH 30.7 (26.7-34.0) pg MCHC 32.4 (29.9-35.2) g/dL RDW 14.5 (11.0-15.0) % Plt Count 207 (150-450) 10^3/uL MPV 9.4 L (9.5-13.5) fL Neut % (Auto) 82.4 H (43.0-75.0) % Lymph % (Auto) 7.9 L (20.5-60.0) % [place] % (Auto) 8.8 (1.7-12.0) % Eos % (Auto) 0.1 L (0.9-7.0) % Baso % (Auto) 0.2 (0.2-2.0) % Neut # (Auto) 11.7 H (1.4-6.5) 10^3/uL Lymph # (Auto) 1.1 L (1.2-3.8) 10^3/uL [place] # (Auto) 1.2 H (0.3-0.8) 10^3/uL Eos # (Auto) 0.0 (0.0-0.7) 10^3/uL Baso # (Auto) 0.0 (0.0-0.1) 10^3/uL Abs Immat Gran (auto) 0.08 H (0.00-0.03) 10^3/uL Imm/Tot Granulo (auto) 0.6 H (0.0-0.5) % PT 12.7 H (9.0-11.6) sec INR 1.22 Sodium 135 L (136-145) mmol/L Potassium 4.6 (3.5-5.1) mmol/L Chloride 97 L (98-107) mmol/L Carbon Dioxide 27.7 (21.0-32.0) mmol/L Anion Gap 14.9 BUN 32.0 H (7.0-18.0) mg/dL Creatinine 2.06 H (0.55-1.02) mg/dL Est GFR ( Amer) 28 L (>=60 mL/min/1.73m^2) Est GFR (Non-Af Amer) 23 L (>=60 mL/min/1.73m^2) BUN/Creatinine Ratio 15.5 Glucose 197 H (74-106) mg/dL Lactate 2.3 H* (0.4-2.0) mmol/L Calcium 9.0 (8.5-10.1) mg/dL Total Bilirubin 0.5 (0.2-1.0) mg/dL AST 11 L (15-37) U/L ALT 9 L (14-59) U/L Alkaline Phosphatase 73 (46-116) U/L Troponin I High Sens 10.3 (4.0-51.3) pg/mL Total Protein 6.7 (6.4-8.2) g/dL Albumin 2.8 L (3.4-5.0) g/dL Globulin 3.9 g/dL Albumin/Globulin Ratio 0.7 Discharge Plan Discharge Patient Disposition: Still a Patient
[2024-09-05 17:10] LABS: Basophils Percent Auto 0.2 % (0.2-2.0); Eosinophils Percent Auto 0.1 % (0.9-7.0); Hematocrit 29.3 % (36.0-48.0); Hemoglobin 9.5 g/dL (12.0-16.0); Immature Granulocytes Abs Auto 0.08 10^3/uL (0.00-0.03); Immature Granulocytes Pct Auto 0.6 % (0.0-0.5); Lymphocytes Absolute Auto 1.1 10^3/uL (1.2-3.8); Lymphocytes Percent Auto 7.9 % (20.5-60.0); Mean Corpuscular HGB Conc 32.4 g/dL (29.9-35.2); Mean Corpuscular Hemoglobin 30.7 pg (26.7-34.0); Mean Corpuscular Volume 94.8 fL (81.0-99.0); Mean Platelet Volume 9.4 fL (9.5-13.5); Monocytes Absolute Auto 1.2 10^3/uL (0.3-0.8); Monocytes Percent Auto 8.8 % (1.7-12.0); Neutrophils Absolute Auto 11.7 10^3/uL (1.4-6.5); Neutrophils Percent Auto 82.4 % (43.0-75.0); Platelet Count 207 10^3/uL (150-450); Red Blood Count 3.09 10^6/uL (4.20-5.40); Red Cell Distribution Width 14.5 % (11.0-15.0); White Blood Count 14.2 10^3/uL (4.0-11.0)
[2024-09-05 17:24] LABS: INR 1.22; Prothrombin Time 12.7 sec (9.0-11.6)
[2024-09-05 17:28] LABS: Alanine Aminotransferase 9 U/L (14-59); Albumin Globulin Ratio 0.7; Albumin Level 2.8 g/dL (3.4-5.0); Alkaline Phosphatase 73 U/L (46-116); Anion Gap 14.9; Aspartate Amino Transferase 11 U/L (15-37); BUN Creatinine Ratio 15.5; Bilirubin Total 0.5 mg/dL (0.2-1.0); Carbon Dioxide 27.7 mmol/L (21.0-32.0); Chloride 97 mmol/L (98-107); Estimated GFR (African America 28 (>=60 mL/min/1.73m^2); Estimated GFR (Non-African Ame 23 (>=60 mL/min/1.73m^2); Globulin 3.9 g/dL; Glucose 197 mg/dL (74-106); Potassium 4.6 mmol/L (3.5-5.1); Sodium 135 mmol/L (136-145); Total Protein 6.7 g/dL (6.4-8.2); Troponin I High Sensitivity 10.3 pg/mL (4.0-51.3)
[2024-09-05 17:33] LABS: Lactate/Lactic Acid 2.3 mmol/L (0.4-2.0)
[2024-09-05] MEDS: 0.9 % SODIUM CHLORIDE 1,000 ML 500 ML IV (18:09)
[2024-09-05] MEDS: PIPERACILLIN SODIUM/TAZOBACTAM 3.375 GM in 0.9 % SODIUM CHLORIDE 50 ML IV (18:59)
[2024-09-05] MEDS: MORPHINE SULFATE 2 MG/ML SYRINGE 1 MG IV (18:59)
--- OUTSIDE RECORDS SUMMARY | 2024-09-05 20:12 | XMS_ITS | CCD ---
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 Name Role Phone Mateus Perry MD Primary Care Provider Mateus Perry Primary Care Physician Mateus Perry MD Primary Care Provider [phone] Mateus Perry MD Primary Care Provider [phone] Mateus Perry Primary Care Provider [phone] MD Christiano Gonzales Attending Provider Christiano Gonzales [...] HANK, SONALI Attending Unavailable HOY ., DR INGACIO Primary Care Unavailable ZIEBER, DR ALFONSO Ramirez [...] Unavailable HOY ., DR IGNACIO Consulting Unavailable MIAMI, DR JUDSON Plunkett Consulting Unavailable MISC, DR [...] HOY ., DR IGNACIO Primary Care Unavailable MIAMI, DR JUDSON Plunkett Consulting Unavailable NILL ., [...] Unavailable HOY ., DR IGNACIO Consulting Unavailable MIAMI, DR JUDSON Plunkett Consulting Unavailable HOY ., [...] Care Provider [phone] FERNY Mathews Attending Provider [phone] MD Mateus Perry Primary Care Provider [phone] FERNY Mathews Attending Provider [phone] Mateus Perry Primary Care Unavailable Bisi, Janell Admitting Unavailable Janell Mathews Attending Unavailable Mateus Prery Primary Care Unavailable Janell Mathews Admitting Unavailable Janell Mathews Attending Unavailable Mateus Perry MD Primary Care Provider [phone] PEYMAN HENSLEY Attending Unavailable PEYMAN HENSLEY Attending Unavailable CONCHA, BRIAN Referring Unavailable GIANA, CHERYL Attending Unavailable CONCAH, BRIAN Attending Unavailable MICHAELRENEE Referring Unavailable MICHAELRENEE [...] 3 Other (See Comments), Intolerance, GI Upset [facility] (20 sources) Ciprofloxacin; Translations: [ciprofloxacin] Drug Allergy 8 Hives, Urticaria (disorder), Other: See Comments [facility] (20 sources) oxyCODONE; Translations: [oxycodone] Drug Allergy 9 Rash, Itching (finding) [facility] (19 sources) cefdinir; Translations: [cefdinir] Drug Allergy 3 Vomiting (disorder), Other: See Comments, Vomiting, Other (See Comments) [facility] (11 sources) traMADol; Translations: [TRAMADOL] Drug Allergy 3 Mental Status Change, Other (See Comments) [facility] (1 source) Cefuroxime Drug Allergy 2 [facility] [employer] Work Phone: (5 sources) Acetaminophen; Translations: [acetaminophen] Drug Allergy 9 [facility] (2 sources) Acetaminophen / oxyCODONE Drug Allergy 3 [facility] (1 source) Cefuroxime Drug Allergy 2 [facility] (2 sources) Ciprofloxacin Drug Allergy [facility] (1 source) cefdinir Drug Allergy 4 [facility] (1 source) Ciprofloxacin Drug Allergy 4 [facility] (1 source) oxyCODONE Drug Allergy 4 [facility] (1 source) traMADol Drug Allergy 4 [facility] Medications Current Medications Medication Drug Class(es) [...] Polymyxin-class Antibacterial Start: End: bacitracin-polymyxin b (POLYSPORIN) 500-34754 UNIT/GM ointment Apply topically 2 times daily. [...] take 1 capsule by mouth twice daily Metcalfe 3 1000 MG CAPS Take 1,000 mg by mouth 2 times daily 0 Active End: 05-12-2021 take 1 capsule by mouth once daily Metcalfe-3 Fatty Acids (FISH OIL OMEGA-3) 1000 MG CAPS Take 1,000 mg by mouth daily 0 05/12/2021 Discontinued docusate sodium 50 mg / sennosides, prison 8.6 mg oral tablet (2 sources) Start: [...] 09-02-2022 take 2 tablets by mo [facility] once daily Cytomel 5 mcg Tab 10 mcg = 2 tab(s), Oral, Daily, Refills(s) 0 Start Date: 09/02/22 Status: Ordered take 2 tablets by mo [facility] once daily liothyronine (Cytomel) 5 MCG [...] sources) Polyene Antifungal Start: 06-28-2022 nystatin (MYCOSTATIN) 123026 UNIT/GM powder Apply 3 times daily. 60 g 10 06/28/2022 Active nystatin (MYCOST ATIN) 551289 UNIT/GM powder Apply topically 2 times daily as needed 0 Active Wwxrd-0h-Jud-Epa-Fish Oil (Metcalfe-3 Fish Oil) 300-1,000 mg Capsule (4 sources) Start: 04-25-2019 Ujutt-1t-Agr-Epa-Fish Oil (Metcalfe-3 Fish Oil) 300-1,000 mg Capsule Active 2 [...] above: Take 2 tablets by mo [facility] every 6 hours as needed for Pain. 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 (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 oral hypoglycemic drugs; Translations: [[facility] USE ORAL HYPOGLYCEMIC DX] Onset: 11-03-2022 Episodic Other aftercare (1 source) Other senior care (current) drug therapy; Translations: [OTH [facility] CURRENT DRUG THERAPY] Onset: 11-03-2022 Episodic Other [...] Onset: 08-13-2022 Episodic Other aftercare (1 source) 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 (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 aspirin; 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: [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] Onset: 08-25-2022 Episodic [...] Range Facility Office Visiton 09-02-2024 Follow-up visit [id number] McleodHarman 1940 F Date Provider Department Center 09/02/2024 BRIAN FLANNERY [facility] Family History Problem Relation Age of Onset Stroke Mother Coronary artery disease Father Heart attack Father Family Status - Relation Status Age at Mother Father Level of Service:00169 [place] OFFICE/OUTPATIENT ESTABLISHED SF MDM 10 MIN Normal [facility] Office Visiton 08-27-2024 Follow-up visit [id number] McleodHarman 1940 F Date Provider Department Center 08/27/2024 BRIAN FLANNERY [facility] Family History Problem Relation Age of Onset Stroke Mother Coronary artery disease Father Heart attack Father Family Status - Relation Status Age at Mother Father Level of Service:10811 [place] OFFICE/OUTPATIENT ESTABLISHED LOW MDM 20 MIN Normal [facility] HPon 08-12-2024 [facility] Electrophysiology Consult Note [place] Card[place] [facility] Reason for visit: Afib 08/12/24 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 She was just discharged from [facility] for GI bleed. Eliquis and aspirin have [...] Diagnosis Date Abnormal ECG Arrhythmia Atrial fibrillation ([facility]/HCC) CAD (coronary artery disease) Cancer ([facility]/HCC) CHF (congestive heart failure) ([facility]/HCC) Chronic kidney disease COPD (chronic obstructive pulmonary disease) ([facility]/HCC) Diabetes mellitus ([facility]/HCC) GI bleed Heart murmur Hyperlipidemia Hypertension PVD (peripheral vascular disease) ([facility] PSH: Past Surgical History: Procedure Laterality Date CARDIAC CATHETERIZATION 12/15/2011, 08/23/2010, 12/30/2004, CORONARY STENT PLACEMENT HYSTERECTOMY 03/11/2005 VASCULAR SURGERY SH: Social Determinants of Health Tobacco Use: Medium Risk (06/20/2024) [facility] Patient History Smoking Tobacco Use: Former Smokeless Tobacco Use: Never Passive Exposure: Not on file Alcohol Use: Not on file Financial Resource Strain: Not on file Food Insecurity: Not on file Transportation Needs: Not on file Physical Activity: Not on file Stress: Not on file Social Connections: Not on file Intimate Partner Violence: Unknown (11/02/2023) [place] Fear of Current or Ex-Partner: Not on file Emotionally Abused: Not on file Physically Abused: Not on file Sexually Abused: Not on file Physically or Sexually Abused: Not on file Depression: Not at risk (02/14/2023) Received from [facility], [facility] PHQ-2 PHQ-2 score: 0 Housing Stability: Not [...] mouth two times daily. fish oil concentrate (Metcalfe-3) 120-180 mg capsule Take 1,000 mg by [...] mouth in th (more content not included)... [facility] NURSNOTEon 08-12-2024 NURSNOTE RN educated pt on [...] off of unit with all of belongings. [facility] 36on 07-18-2024 36 Patient's significan t toya (Sreekanth) called the office to confirm Harman has been taking 100mg of metoprolol once a day. She has 200mg tablets. I advised him - per Dr. Lamb- to make sure she's taking 100mg bid. She will take half tablet bid. Sreekanth verbalized understanding. [facility] Office Visiton 07-17-2024 Follow-up visit [id number] Harman Mcleod 1940 F Date Provider Department Center 07/17/2024 [id number] LAMB [facility] History Problem Relation Age of Onset Stroke Mother Coronary artery disease Father Heart attack Father Family Status - Relation Status Age at Mother Father Level of Service:34421 MA OFFICE/OUTPATIENT ESTABLISHED MOD MDM 30 MIN Reason for Visit and Comments: S/P PACEMAKER [Other] - HERE FOR A WOUND CHECK TODAY Atrial Fibrillation [80] - CHADSVASC score of 7 Coronary Artery Disease [187] Hypertension [488898] Edema [[id number]] - LEGS AND FEET ARE SWOLLEN TODAY, PT WANTS TO KNOW IF SHOULD GO BACK ON LASIX DAILY [facility] Orders Onlyon 07-17-2024 Orders Only [id number] Harman Mcleod 1940 F Date Provider Department Center 07/17/2024 JORGE LONG [facility] Family History Problem Relation Age of Onset Stroke Mother Coronary artery disease Father Heart attack Father Family Status - Relation Status Age at Mother Father Normal [facility] HP 07-10-2024 [facility] Electrophysiology [place] - [facility] Reason for visit: Afib HPI: [...] in A-fib. She was just discharged from [facility] for GI bleed. Eliquis and aspirin have [...] on file Intimate Partner Violence: Unknown (11/02/2023) [place] Fear of Current or [...] mouth two times daily. fish oil concentrate (Metcalfe-3) 120-180 mg capsule Take 1,000 mg by [...] tablet 3 spironolac (more content not included)... [facility] NURSNOTEon 07-10-2024 NURSNOTE RN educated pt on [...] off of unit with all of belongings. [facility] Office Visiton 07-02-2024 Follow-up visit [id number] Harman Mcleod 1940 Date Provider Department Center 07/02/2024 BRIAN FLANNERY CORI [facility] Family History Problem Relation Age of Onset Stroke Mother Coronary artery disease Father Heart attack Father Family Status - Relation Status Age at Mother Father Level of Service:54698 MA OFFICE/OUTPATIENT NEW MODERATE MDM 45 MINUTES [facility] Orders Onlyon 07-02-2024 Orders Only [id number] Harman Mcleod 1940 Provider Department Center 07/02/2024 Chiara-WENDY WILL CARD [facility] Family History Problem Relation Age of Onset Stroke Mother Coronary artery disease Father Heart attack Father Family Status - Relation Status Age at Mother Father Normal [facility] Office Visiton 06-12-2024 Follow-up visit [id number] Harman Mcleod 1940 Date Provider Department Center 06/12/2024 LonnyMARCILIZETHJOSE MARIA SMITH CORI [facility] Family History Problem Relation Age of Onset Stroke Mother Coronary artery disease Father Heart attack Father Family Status - Relation Status Age at Mother Father Level of Service:99557 MA OFFICE/OUTPATIENT ESTABLISHED HIGH MDM 40 MIN Normal [facility] 36on 06-10-2024 36 Pt informed hoys office updated Normal [facility] 37on 05-27-2024 37 Increase Zocor/simvastatin to 40 mg daily- from 20 mg for better cholesterol control Have blood drawn in 2-3 months for liver function and lipid levels- you must be fasting to have drawn Normal [facility] Office Visiton 05-27-2024 Follow-up visit [id number] Harman Mcleod 1940 Date Provider Department Center 05/27/2024 CHERYL MEYER COR[facility] Family History Problem Relation Age of Onset Stroke Mother Coronary artery disease Father Heart attack Father Family Status - Relation Status Age at Mother Father Level of Service:84407 MA OFFICE/OUTPATIENT ESTABLISHED LOW MDM 20 MIN Normal [facility] US ankle/arm indiceson 04-09 US ankle/arm indices [facility] [place] [address] Ultrasound Report Signed Patient: Harman Mcleod MR#: [id number] : 1940 Acct:[id number] Age/Sex: 83 / F ADM Date: 04/09/24 Loc: Room: Type: [facility] Attending Dr: Janell Mathews APRN Ordering [...] Christiano Gonzales MD04/09/2024 2:02 PM Dictation Location: [place] [address] Tech: Kaleigh Ortega Transcribed By: FRANCIA 04/09/24 1402 Dictated By: Christiano Gonzales MD 04/09/24 1401 Signed By: 04/09/24 1402 Normal [facility] [place] [address] Ultrasound Report Signed Patient: Harman Mcleod MR#: [id number] : 1940 Acct:[id number] Age/Sex: 83 / F ADM Date: 04/09/24 Loc: Room: Type: [facility] Attending Dr: Janell Mathews APRN Ordering [...] Christiano Gonzales MD04/09/2024 2:01 PM Dictation Location: [place] [address] Tech: Francesca Estrada Transcribed By: FRANCIA 04/09/24 1401 Dictated By: Christiano Gonzales MD 04/09/24 1359 Signed By: 04/09/24 1401 Normal [facility] Consultation Noteon 06-21-20 Consultation Note [id number] 0TIFF Normal [facility] CBC W Auto Differential pane l (Bld)on 06-20-2023 Basophils (Bld) [#/Vol] 0.03 10*3/uL Normal <0.11 [facility] Comment on above: Order Comment: Speci men Type: BLOOD SPECIMENOrdering Facility: [facility] Address: [address] [place] [address] Performed By: #### 5 7021-8 ####[facility] LABCLIA [id number] [place] [address] Basophils/100 WBC (Bld) 0.3 % Normal [facility] Comment on above: Order Comment: Speci men Type: BLOOD SPECIMENOrdering Facility: [facility] Address: [address] [place] [address] Performed By: #### 5 7021-8 ####[facility] LABCLIA [id number] [place] [address] Differential cell count method Nom (Bld) Auto Normal [facility] Comment on above: Order Comment: Speci men Type: BLOOD SPECIMENOrdering Facility: [facility] Address: [address] [place] [address] Performed By: #### 5 7021-8 ####[facility] LABCLIA [id number] [place] [address] Eosinophils (Bld) [#/Vol] 10*3/uL Normal <0.46 [facility] Comment on above: Order Comment: Speci men Type: BLOOD SPECIMENOrdering Facility: [facility] Address: [address] [place] [address] Performed By: #### 5 7021-8 ####[facility] LABCLIA [id number] [place] [address] Eosinophils/100 WBC (Bld) 0.2 % Normal [facility] Comment on above: Order Comment: Speci men Type: BLOOD SPECIMENOrdering Facility: [facility] Address: [address] [place] [address] Performed By: #### 5 7021-8 ####[facility] LABCLIA [id number] [place] [address] Erythrocyte distribution width (RBC) [Ratio] 14.4 % Normal 11.5-15.0 [facility] Comment on above: Order Comment: Speci men Type: BLOOD SPECIMENOrdering Facility: [facility] Address: [address] [place] [address] Performed By: #### 5 7021-8 ####[facility] LABCLIA [id number] [place] [address] Hematocrit (Bld) [Volume fraction] 34.9 % Low 36.0-46.0 [facility] Comment on above: Order Comment: Speci men Type: BLOOD SPECIMENOrdering Facility: [facility] Address: [address] [place] [address] Performed By: #### 5 7021-8 ####[facility] LABCLIA [id number] [place] [address] Hemoglobin (Bld) [Mass/Vol] 10.9 g/dL Low 11.5-15.5 [facility] Comment on above: Order Comment: Speci men Type: BLOOD SPECIMENOrdering Facility: [facility] Address: [address] [place] [address] Performed By: #### 5 7021-8 ####[facility] LABCLIA [id number] [place] [address] Immature granulocytes (Bld) [#/Vol] 0.11 10*3/uL High <0.10 [facility] Comment on above: Order Comment: Speci men Type: BLOOD SPECIMENOrdering Facility: [facility] Address: [address] [place] [address] Performed By: #### 5 7021-8 ####[facility] LABCLIA [id number] [place] [address] Immature granulocytes/100 WBC (Bld) 1.1 % Normal [facility] Comment on above: Order Comment: Speci men Type: BLOOD SPECIMENOrdering Facility: [facility] Address: [address] [place] [address] Performed By: #### 5 7021-8 ####[facility] LABCLIA [id number] [place] [address] Lymphocytes (Bld) [#/Vol] 1.97 10*3/uL Normal 1.00-4.00 [facility] Comment on above: Order Comment: Speci men Type: BLOOD SPECIMENOrdering Facility: [facility] Address: [address] [place] [address] Performed By: #### 5 7021-8 ####[facility] LABCLIA [id number] [place] [address] Lymphocytes/100 WBC (Bld) 19.3 % Normal [facility] Comment on above: Order Comment: Speci men Type: BLOOD SPECIMENOrdering Facility: [facility] Address: [address] [place] [address] Performed By: #### 5 7021-8 ####[facility] LABCLIA [id number] [place] [address] MCH (RBC) [Entitic mass] 29.9 pg Normal 26.0-34.0 [facility] Comment on above: Order Comment: Speci men Type: BLOOD SPECIMENOrdering Facility: [facility] Address: [address] [place] [address] Performed By: #### 5 7021-8 ####[facility] LABCLIA [id number] [place] [address] MCHC (RBC) [Mass/Vol] 31.2 g/dL Normal 30.5-36.0 [facility] Comment on above: Order Comment: Speci men Type: BLOOD SPECIMENOrdering Facility: [facility] Address: [address] [place] [address] Performed By: #### 5 7021-8 ####[facility] LABCLIA [id number] [place] [address] MCV (RBC) [Entitic vol] 95.6 fL Normal 80.0-100.0 [facility] Comment on above: Order Comment: Speci men Type: BLOOD SPECIMENOrdering Facility: [facility] Address: [address] [place] [address] Performed By: #### 5 7021-8 ####[facility] LABIA [id number] [place] [address] Monocytes (Bld) [#/Vol] 0.49 10*3/uL Normal <0.87 [facility] Comment on above: Order Comment: Speci men Type: BLOOD SPECIMENOrdering Facility: [facility] Address: [address] [place] [address] Performed By: #### 5 7021-8 ####[facility] LABIA [id number] [place] [address] Monocytes/100 WBC (Bld) 4.8 % Normal [facility] Comment on above: Order Comment: Speci men Type: BLOOD SPECIMENOrdering Facility: [facility] Address: [address] [place] [address] Performed By: #### 5 7021-8 ####[facility] LABIA [id number] [place] [address] Neutrophils (Bld) [#/Vol] 7.59 10*3/uL High 1.45-7.50 [facility] Comment on above: Order Comment: Speci men Type: BLOOD SPECIMENOrdering Facility: [facility] Address: [address] [place] [address] Performed By: #### 5 7021-8 ####[facility] LABCLIA [id number] [place] [address] Neutrophils/100 WBC (Bld) 74.3 % Normal [facility] Comment on above: Order Comment: Speci men Type: BLOOD SPECIMENOrdering Facility: [facility] Address: [address] [place] [address] Performed By: #### 5 7021-8 ####[facility] LABCLIA [id number] [place] [address] Nucleated RBC (Bld) [#/Vol] 10*3/uL Normal <0.01 [facility] Comment on above: Order Comment: Speci men Type: BLOOD SPECIMENOrdering Facility: [facility] Address: [address] [place] [address] Performed By: #### 5 7021-8 ####[facility] LABCLIA [id number] [place] [address] Nucleated RBC/100 WBC (Bld) [Ratio] 0.0 /100 WBC Normal [facility] Comment on above: Order Comment: Speci men Type: BLOOD SPECIMENOrdering Facility: [facility] Address: [address] [place] [address] Performed By: #### 5 7021-8 ####[facility] LABCLIA [id number] [place] [address] Platelet mean volume (Bld) [Entitic vol] 9.3 fL Normal 9.0-12.7 [facility] Comment on above: Order Comment: Speci men Type: BLOOD SPECIMENOrdering Facility: [facility] Address: [address] [place] [address] Performed By: #### 5 7021-8 ####[facility] LABCLIA [id number] [place] [address] Platelets (Bld) [#/Vol] 275 10*3/uL Normal 150-400 [facility] Comment on above: Order Comment: Speci men Type: BLOOD SPECIMENOrdering Facility: [facility] Address: [place] [address] Performed By: #### 5 7021-8 ####[facility] LABIA [id number] [place] [address] RBC (Bld) [#/Vol] 3.65 10*6/uL Low 3.90-5.20 [facility] Comment on above: Order Comment: Speci men Type: BLOOD SPECIMENOrdering Facility: [facility] Address: [place] [address] Performed By: #### 5 7021-8 ####[facility] LABIA [id number] [place] [address] WBC (Bld) [#/Vol] 10.21 10*3/uL Normal 3.70-11.00 [facility] Comment on above: Order Comment: Speci men Type: BLOOD SPECIMENOrdering Facility: [facility] Address: [address] [place], [place] [address] Performed By: #### 5 7021-8 ####[facility] LABIA [id number] [place] [address] CNOVSPon 06-20-2023 OVS Visit (SP) Office (HEMASA) HARMAN MCLEOD ([id number]) 1940 F Date Time Provider Department 06/20/23 2:30 PM WINNIE GUZMÁN During your visit today, we recorded the following information about you: Temperature Pulse Respiration Blood pressure 97.4 degrees 72/minute 16/minute 138/55 Weight Height 84.6 kg 1.549 m Winnie Guzmán PA-C 06/20/2023 3:58 PM Signed PATIENT NAME: Harman Mcleod CLINIC NO.: [id number] ATTENDING PHYSICIAN: Wallace Stone MD DATE OF [...] Negative LVI, 2 SNL negative, ER and MA >95% positive, Her2 IHC 1+ Treatment History: [...] 06/20/2023 1.77 (more content not included)... Normal [facility] Comprehensive metabolic 2000 panelon 06-20-2023 Albumin [Mass/Vol] 4.0 g/dL Normal 3.9-4.9 [facility] Comment on above: Order Comment: Speci men Type: BLOOD SPECIMENOrdering Facility: [facility] Address: [address] [place] [address] Performed By: #### 2 4323-8 ####[facility] LABCLIA [id number] [place] [address] ALP [Catalytic activity/Vol] 72 U/L Normal 34-123 [facility] Comment on above: Order Comment: Speci men Type: BLOOD SPECIMENOrdering Facility: [facility] Address: [address] [place] [address] Performed By: #### 2 4323-8 ####[facility] LABCLIA [id number] [place] [address] ALT [Catalytic activity/Vol] 17 U/L Normal 7-38 [facility] Comment on above: Order Comment: Speci men Type: BLOOD SPECIMENOrdering Facility: [facility] Address: [address] [place], [place] [address] Performed By: #### 2 4323-8 ####[facility] LABCLIA [id number] [place] [address] Anion gap [Moles/Vol] 9 mmol/L Normal 9-18 [facility] Comment on above: Order Comment: Speci men Type: BLOOD SPECIMENOrdering Facility: [facility] Address: [address] [place] [address] Performed By: #### 2 4323-8 ####[facility] LABCLIA [id number] [place] [address] AST [Catalytic activity/Vol] 11 U/L Low 13-35 [facility] Comment on above: Order Comment: Speci men Type: BLOOD SPECIMENOrdering Facility: [facility] Address: [address] [place] [address] Performed By: #### 2 4323-8 ####[facility] LABCLIA [id number] [place] [address] Bilirubin [Mass/Vol] 0.2 mg/dL Normal 0.2-1.3 [facility] Comment on above: Order Comment: Speci men Type: BLOOD SPECIMENOrdering Facility: [facility] Address: [address] [place] [address] Performed By: #### 2 4323-8 ####[facility] LABCLIA [id number] [place] [address] Calcium [Mass/Vol] 10.1 mg/dL Normal 8.5-10.2 [facility] Comment on above: Order Comment: Speci men Type: BLOOD SPECIMENOrdering Facility: [facility] Address: [address] [place] [address] Performed By: #### 2 4323-8 ####[facility] LABCLIA [id number] [place] [address] Chloride [Moles/Vol] 103 mmol/L Normal 97-105 [facility] Comment on above: Order Comment: Speci men Type: BLOOD SPECIMENOrdering Facility: [facility] Address: [address] [place] [address] Performed By: #### 2 4323-8 ####[facility] LABCLIA [id number] [place] [address] CO2 [Moles/Vol] 30 mmol/L Normal 22-30 [facility] Comment on above: Order Comment: Speci men Type: BLOOD SPECIMENOrdering Facility: [facility] Address: [address] [place] [address] Performed By: #### 2 4323-8 ####[facility] LABCLIA [id number] [place] [address] Creatinine [Mass/Vol] 1.77 mg/dL High 0.58-0.96 [facility] Comment on above: Order Comment: Dimple de santiago Type: BLOOD SPECIMENOrdering Facility: [facility] Address: [address] [place] [address] Performed By: #### 2 4323-8 ####[facility] LABCLIA [id number] [place] [address] Creatinine and Glomerular filtration rate.predicted panel (S/P/Bld) 29 mL/min/1.73m??? Low >=60 [facility] Comment on above: Order Comment: Dimple men Type: BLOOD SPECIMENOrdering Facility: [facility] Address: [address] [place] [address] Result Comment: Ramila mated Glomerular Filtration Rate [...] actual GFR. Performed By: #### 2 4323-8 ####[facility] LABCLIA [id number] [place] [address] Glucose [Mass/Vol] 273 mg/dL High 74-99 [facility] Comment on above: Order Comment: Dimple anyi Type: BLOOD SPECIMENOrdering Facility: [facility] Address: [address] [place] [address] Result Comment: The [place] Diabetes Association (ADA) provides guidance for cutoff [...] Standards of Medical Care in Diabetes 2016, [place] [employer]. Diabetes Care. 2016.39(Suppl 1). Performed By: #### 2 4323-8 ####[facility] LABCLIA [id number] [place] [address] Potassium [Moles/Vol] 5.1 mmol/L Normal 3.7-5.1 [facility] Comment on above: Order Comment: Speci men Type: BLOOD SPECIMENOrdering Facility: [facility] Address: [address] [place] [address] Performed By: #### 2 4323-8 ####[facility] LABCLIA [id number] [place] [address] Protein [Mass/Vol] 6.4 g/dL Normal 6.3-8.0 [facility] Comment on above: Order Comment: Speci men Type: BLOOD SPECIMENOrdering Facility: [facility] Address: [address] [place] [address] Performed By: #### 2 4323-8 ####[facility] LABCLIA [id number] [place] [address] Sodium [Moles/Vol] 142 mmol/L Normal 136-144 [facility] Comment on above: Order Comment: Speci men Type: BLOOD SPECIMENOrdering Facility: [facility] Address: [address] [place] [address] Performed By: #### 2 4323-8 ####[facility] LABCLIA [id number] [place] [address] Urea nitrogen [Mass/Vol] 40 mg/dL High 7-21 [facility] Comment on above: Order Comment: Speci men Type: BLOOD SPECIMENOrdering Facility: [facility] Address: [address] [place] [address] Performed By: #### 2 4323-8 ####[facility] LABCLIA [id number] [place] [address] Vaginitis DNA Probeon 2022 Manjula Negative Normal NEG [facility] Comment on above: Result Comment: for Manjula sp. Method of testing is a DNA probe intended for detection and identification of Manjula species, Gardnerella vaginalis, and Trichomonas vaginalis nucleic acid in vaginal fluid specimens from patients with symptoms of vaginitis/vaginosis. Performed By: #### V AGP #### [facility] [place] [address] Prosthodontist/Owner: Fidel Hylton MD Gardnerella Negative Normal NEG [facility] Comment on above: Result Comment: for Gardnerella vaginalis Performed By: #### V AGP #### [facility] [employer] [address] [place] [phone] Prosthodontist/Owner: Fidel Hylton MD Trichomonas Negative Normal NEG [facility] Comment on above: Result Comment: for Trichomonas Vaginalis Performed By: #### V AGP #### [facility] [employer] [address] [place] [phone] Prosthodontist/Owner: Fidel Hylton MD Source .VAGINAL SWAB Normal [facility] Comment on above: Performed By: #### V AGP #### [facility] [address] [place] [phone] Prosthodontist/Owner: Fidel Hylton MD OPERATIVE REPORTon OPERATIVE REPORT [address] [address] OPERATIVE REPORT PATIENT NAME: HARMAN MCLEOD : 1940 MED REC NO: [id number] ROOM: ACCOUNT NO: [id number] ADMIT DATE: 03/06/2023 PROVIDER: Emma Garza MD DATE OF PROCEDURE: 03/06/2023 PREOPERATIVE DIAGNOSIS: Recurrent vaginal dysplasia. POSTOPERATIVE DIAGNOSIS: Recurrent vaginal dysplasia. OPERATION PERFORMED: Examination under anesthesia, carbon dioxide laser vaporization of vaginal dysplasia. COMPLICATIONS: None. BLOOD LOSS: Minimal. SURGEON: Emma Garza MD ADVERTISING AGENCY MANAGER: Mauri (resident). DISPOSITION: The patient to recovery room stable. SPECIMENS: No specimen sent to Pathology. OPERATIVE FINDINGS: The patient had a small 1-2 cm area of kusiwstn-yz-ydhnrf dysplasia along the anterior vagina from 12 [...] entire procedure. EMMA GARZA MD CL/S_[email or web address]_01 Doc#: [id number] CC: Normal [facility] Consultation Noteon 02-20-20 Consultation Note [id number]#[id number] 0CD:127 Normal [facility] CBC W Auto Differential pane l (Bld)on 02-14-2023 Basophils (Bld) [#/Vol] 0.04 10*3/uL Normal <0.11 [facility] Comment on above: Order Comment: Speci men Type: BLOOD SPECIMENOrdering Facility: [facility] Address: [address] [address] Performed By: #### 5 7021-8 ####[facility] LABCLIA [id number] [place] [address] Basophils/100 WBC (Bld) 0.4 % Normal [facility] Comment on above: Order Comment: Speci men Type: BLOOD SPECIMENOrdering Facility: [facility] Address: [address] [place], [place] [phone] Performed By: #### 5 7021-8 ####[facility] LABCLIA [id number] [place] [address] Differential cell count method Nom (Bld) Auto Normal [facility] Comment on above: Order Comment: Speci men Type: BLOOD SPECIMENOrdering Facility: [facility] Address: [address] [place] [address] Performed By: #### 5 7021-8 ####[facility] LABCLIA [id number] [place] [address] Eosinophils (Bld) [#/Vol] 0.20 10*3/uL Normal <0.46 [facility] Comment on above: Order Comment: Speci men Type: BLOOD SPECIMENOrdering Facility: [facility] Address: [address] [place] [address] Performed By: #### 5 7021-8 ####[facility] LABCLIA [id number] [place] [address] Eosinophils/100 WBC (Bld) 1.9 % Normal [facility] Comment on above: Order Comment: Speci men Type: BLOOD SPECIMENOrdering Facility: [facility] Address: [address] [place] [address] Performed By: #### 5 7021-8 ####[facility] LABCLIA [id number] [place] [address] Erythrocyte distribution width (RBC) [Ratio] 14.1 % Normal 11.5-15.0 [facility] Comment on above: Order Comment: Speci men Type: BLOOD SPECIMENOrdering Facility: [facility] Address: [address] [place] [address] Performed By: #### 5 7021-8 ####[facility] LABCLIA [id number] [place] [address] Hematocrit (Bld) [Volume fraction] 38.4 % Normal 36.0-46.0 [facility] Comment on above: Order Comment: Speci men Type: BLOOD SPECIMENOrdering Facility: [facility] Address: [address] [place] [address] Performed By: #### 5 7021-8 ####[facility] LABCLIA [id number] [place] [address] Hemoglobin (Bld) [Mass/Vol] 12.2 g/dL Normal 11.5-15.5 [facility] Comment on above: Order Comment: Speci men Type: BLOOD SPECIMENOrdering Facility: [facility] Address: [address] [place] [address] Performed By: #### 5 7021-8 ####[facility] LABCLIA [id number] [place] [address] Immature granulocytes (Bld) [#/Vol] 0.06 10*3/uL Normal <0.10 [facility] Comment on above: Order Comment: Speci men Type: BLOOD SPECIMENOrdering Facility: [facility] Address: [address] [place] [address] Performed By: #### 5 7021-8 ####[facility] LABCLIA [id number] [place] [address] Immature granulocytes/100 WBC (Bld) 0.6 % Normal [facility] Comment on above: Order Comment: Speci men Type: BLOOD SPECIMENOrdering Facility: [facility] Address: [address] [place] [address] Performed By: #### 5 7021-8 ####[facility] LABCLIA [id number] [place] [address] Lymphocytes (Bld) [#/Vol] 2.56 10*3/uL Normal 1.00-4.00 [facility] Comment on above: Order Comment: Speci men Type: BLOOD SPECIMENOrdering Facility: [facility] Address: [address] [place] [address] Performed By: #### 5 7021-8 ####[facility] LABCLIA [id number] [place] [address] Lymphocytes/100 WBC (Bld) 24.6 % Normal [facility] Comment on above: Order Comment: Speci men Type: BLOOD SPECIMENOrdering Facility: [facility] Address: [address] [place] [address] Performed By: #### 5 7021-8 ####[facility] LABCLIA [id number] [place] [address] MCH (RBC) [Entitic mass] 30.0 pg Normal 26.0-34.0 [facility] Comment on above: Order Comment: Speci men Type: BLOOD SPECIMENOrdering Facility: [facility] Address: [address] [place] [address] Performed By: #### 5 7021-8 ####[facility] LABCLIA [id number] [place] [address] MCHC (RBC) [Mass/Vol] 31.8 g/dL Normal 30.5-36.0 [facility] Comment on above: Order Comment: Speci men Type: BLOOD SPECIMENOrdering Facility: [facility] Address: [address] [address] Performed By: #### 5 7021-8 ####[facility] LABCLIA [id number] [place] [address] MCV (RBC) [Entitic vol] 94.3 fL Normal 80.0-100.0 [facility] Comment on above: Order Comment: Speci men Type: BLOOD SPECIMENOrdering Facility: [facility] Address: [address] [address] Performed By: #### 5 7021-8 ####[facility] LABCLIA [id number] [place] [address] Monocytes (Bld) [#/Vol] 0.86 10*3/uL Normal <0.87 [facility] Comment on above: Order Comment: Speci men Type: BLOOD SPECIMENOrdering Facility: [facility] Address: [address] [place] [address] Performed By: #### 5 7021-8 ####[facility] LABCLIA [id number] [place] [address] Monocytes/100 WBC (Bld) 8.3 % Normal [facility] Comment on above: Order Comment: Speci men Type: BLOOD SPECIMENOrdering Facility: [facility] Address: [address] [place] [address] Performed By: #### 5 7021-8 ####[facility] LABCLIA [id number] [place] [address] Neutrophils (Bld) [#/Vol] 6.69 10*3/uL Normal 1.45-7.50 [facility] Comment on above: Order Comment: Speci men Type: BLOOD SPECIMENOrdering Facility: [facility] Address: [address] [place] [address] Performed By: #### 5 7021-8 ####[facility] LABCLIA [id number] [place] [address] Neutrophils/100 WBC (Bld) 64.2 % Normal [facility] Comment on above: Order Comment: Speci men Type: BLOOD SPECIMENOrdering Facility: [facility] Address: [address] [place] [address] Performed By: #### 5 7021-8 ####[facility] LABCLIA [id number] [place] [address] Nucleated RBC (Bld) [#/Vol] 10*3/uL Normal <0.01 [facility] Comment on above: Order Comment: Speci men Type: BLOOD SPECIMENOrdering Facility: [facility] Address: [address] [place] [address] Performed By: #### 5 7021-8 ####[facility] LABCLIA [id number] [place] [address] Nucleated RBC/100 WBC (Bld) [Ratio] 0.0 /100 WBC Normal [facility] Comment on above: Order Comment: Speci men Type: BLOOD SPECIMENOrdering Facility: [facility] Address: [address] [address] Performed By: #### 5 7021-8 ####[facility] LABCLIA [id number] [place] [address] Platelet mean volume (Bld) [Entitic vol] 9.6 fL Normal 9.0-12.7 [facility] Comment on above: Order Comment: Speci men Type: BLOOD SPECIMENOrdering Facility: [facility] Address: [address] [place] [address] Performed By: #### 5 7021-8 ####[facility] LABCLIA [id number] [place] [address] Platelets (Bld) [#/Vol] 271 10*3/uL Normal 150-400 [facility] Comment on above: Order Comment: Speci men Type: BLOOD SPECIMENOrdering Facility: [facility] Address: [address] [place] [address] Performed By: #### 5 7021-8 ####[facility] LABCLIA [id number] [place] [address] RBC (Bld) [#/Vol] 4.07 10*6/uL Normal 3.90-5.20 [facility] Comment on above: Order Comment: Speci men Type: BLOOD SPECIMENOrdering Facility: [facility] Address: [address] [address] Performed By: #### 5 7021-8 ####[facility] LABCLIA [id number] [place] [address] WBC (Bld) [#/Vol] 10.41 10*3/uL Normal 3.70-11.00 [facility] Comment on above: Order Comment: Speci men Type: BLOOD SPECIMENOrdering Facility: [facility] Address: [address] [place] [address] Performed By: #### 5 7021-8 ####[facility] LABIA [id number] [place] [address] CNOVSPon 02-14-2023 CNOVSP Visit (SP) Office (HEMASA) HARMAN MCLEOD ([id number]) 1940 F Date Time Provider Department 02/14/23 10:30 AM [facility] STONE During your visit today, we recorded the following information about you: Temperature Pulse Respiration Blood pressure 97.4 degrees 102/minute 16/minute 151/90 Weight Height 84.5 kg 1.549 m Wallace Stone MD 02/14/2023 10:49 AM Signed PATIENT NAME: Harman Mcleod CLINIC NO.: [id number] ATTENDING PHYSICIAN: Wallace Stone MD DATE OF [...] Negative LVI, 2 SNL negative, ER and MA >95% positive, Her2 IHC 1+ Treatment History: [...] : Deferre (more content not included)... Normal [facility] CNPNon 02-14-2023 CNPN Telephone (NCCAP) HARMAN MCLEOD ([id number]) 1940 F Date Time Provider Department 02/14/23 [facility] STONE [facility] During your visit today, we recorded the following information about you: Angelica Bhakta Sec 02/14/2023 11:00 AM Signed Please ref to [facility] for Consult dx eczema They will call the patient to schedule after review of records. Janeth, Please fax records Dudley, Please check on this appt. Kira Ko [facility] 02/14/2023 1:14 PM Signed Records faxed to [facility]. Adriana Pereira [facility] 02/22/2023 8:35 AM Signed Called Derm [...] daily at bedtime. Cut in half - Tamms-8-HHV-EPA-Fish Oil 1,000 mg (120 mg-180 mg) cap Take 2 g by mouth twice daily. - isosorbide mononitrate ER (IMDUR) 60 mg 24 hr tablet Take 60 mg by mouth twice daily. Problem List As Of Date 02/14/2023 Noted Resolved Hypertension [I10] DM type 2 (diabetes mellitus, type 2) ([facility]) [E1* Essential hypertension [I10] 01/16/2017 Type 2 diabetes mellitus without complication, *01/16/2017 Hypothyroidism [E03.9] 01/16/2017 Dyslipidemia [E78.5] 01/16/2017 Atherosclerosis of [place] coronary artery of na*01/16/2017 S/P coronary artery stent placement [Z95.5] 01/16/2017 Moderate smoker (20 or less per day) [F17.210] 01/16/2017 PAD (peripheral artery disease) ([facility]) [I73.9] 01/16/2017 Vaginal lesion [N89.8] 01/20/2017 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 Stage 3a chronic kidney disease (HCC) [N18.31] 02/14/2023 Encounter Status:Closed by ANGELICA MILLAN on 02/28/23 Normal [facility] Comprehensive metabolic 2000 panelon 02-14-2023 Albumin [Mass/Vol] 4.1 g/dL Normal 3.9-4.9 [facility] Comment on above: Order Comment: Speci men Type: BLOOD SPECIMENOrdering Facility: [facility] Address: [address] [place] [address] Performed By: #### 2 4323-8 ####[facility] LABCLIA [id number] [place] [address] ALP [Catalytic activity/Vol] 106 U/L Normal 34-123 [facility] Comment on above: Order Comment: Speci men Type: BLOOD SPECIMENOrdering Facility: [facility] Address: [address] [address] Performed By: #### 2 4323-8 ####[facility] LABCLIA [id number] [place] [address] ALT [Catalytic activity/Vol] 14 U/L Normal 7-38 [facility] Comment on above: Order Comment: Speci men Type: BLOOD SPECIMENOrdering Facility: [facility] Address: [address] [address] Performed By: #### 2 4323-8 ####[facility] LABCLIA [id number] [place] [address] Anion gap [Moles/Vol] 11 mmol/L Normal 9-18 [facility] Comment on above: Order Comment: Speci men Type: BLOOD SPECIMENOrdering Facility: [facility] Address: [address] [address] Performed By: #### 2 4323-8 ####[facility] LABCLIA [id number] [place] [address] AST [Catalytic activity/Vol] 11 U/L Low 13-35 [facility] Comment on above: Order Comment: Speci men Type: BLOOD SPECIMENOrdering Facility: [facility] Address: [address] [place] [address] Performed By: #### 2 4323-8 ####[facility] LABCLIA [id number] [place] [address] Bilirubin [Mass/Vol] 0.3 mg/dL Normal 0.2-1.3 [facility] Comment on above: Order Comment: Speci men Type: BLOOD SPECIMENOrdering Facility: [facility] Address: [address] [place] [address] Performed By: #### 2 4323-8 ####[facility] LABCLIA [id number] [place] [address] Calcium [Mass/Vol] 10.2 mg/dL Normal 8.5-10.2 [facility] Comment on above: Order Comment: Speci men Type: BLOOD SPECIMENOrdering Facility: [facility] Address: [address] [place] [address] Performed By: #### 2 4323-8 ####[facility] LABCLIA [id number] [place] [address] Chloride [Moles/Vol] 98 mmol/L Normal 97-105 [facility] Comment on above: Order Comment: Speci men Type: BLOOD SPECIMENOrdering Facility: [facility] Address: [address] [place] [address] Performed By: #### 2 4323-8 ####[facility] LABCLIA [id number] [place] [address] CO2 [Moles/Vol] 31 mmol/L High 22-30 [facility] Comment on above: Order Comment: Speci men Type: BLOOD SPECIMENOrdering Facility: [facility] Address: [address] [id number] Performed By: #### 2 4323-8 ####[facility] LABCLIA [id number] [place] [address] Creatinine [Mass/Vol] 1.25 mg/dL High 0.58-0.96 [facility] Comment on above: Order Comment: Speci men Type: BLOOD SPECIMENOrdering Facility: [facility] Address: [address] [address] Performed By: #### 2 4323-8 ####[facility] LABCLIA [id number] [place] [address] ESTIMATED GLOMERULAR FILTRATION RATE 44 mL/min/1.73m??? Low >=60 [facility] Comment on above: Order Comment: Speci men Type: BLOOD SPECIMENOrdering Facility: [facility] Address: [address] [place] [address] Result Comment: Ramila mated Glomerular Filtration Rate [...] actual GFR. Performed By: #### 2 4323-8 ####[facility] LABCLIA [id number] [place] [address] Glucose [Mass/Vol] 285 mg/dL High 74-99 [facility] Comment on above: Order Comment: Speci men Type: BLOOD SPECIMENOrdering Facility: [facility] Address: [address] [address] Result Comment: The [place] [employer] (ADA) provides guidance for cutoff [...] Standards of Medical Care in Diabetes 2016, [place] [employer]. Diabetes Care. 2016.39(Suppl 1). Performed By: #### 2 4323-8 ####[facility] LABCLIA [id number] [place] [address] Potassium [Moles/Vol] 3.7 mmol/L Normal 3.7-5.1 [facility] Comment on above: Order Comment: Speci men Type: BLOOD SPECIMENOrdering Facility: [facility] Address: [address] [place] [address] Performed By: #### 2 4323-8 ####[facility] LABCLIA [id number] [place] [address] Protein [Mass/Vol] 7.3 g/dL Normal 6.3-8.0 [facility] Comment on above: Order Comment: Speci men Type: BLOOD SPECIMENOrdering Facility: [facility] Address: [address] [place] [address] Performed By: #### 2 4323-8 ####[facility] LABCLIA [id number] [place] [address] Sodium [Moles/Vol] 140 mmol/L Normal 136-144 [facility] Comment on above: Order Comment: Speci men Type: BLOOD SPECIMENOrdering Facility: [facility] Address: [address] [address] Performed By: #### 2 4323-8 ####[facility] LABCLIA [id number] [place] [address] Urea nitrogen [Mass/Vol] 33 mg/dL High 7-21 [facility] Comment on above: Order Comment: Speci men Type: BLOOD SPECIMENOrdering Facility: [facility] Address: [address] [place], [place] [address] Performed By: #### 2 4323-8 ####[facility] LABCLIA [id number] [place] [address] Consultation Noteon 02-15-20 23 Consultation Note [id number]#1.0 0CD:127 Normal [facility] Comment on above: Other Comment: TRACEY RUTH CRR CULTURE URINEon 01-19-2023 CULTURE URINE Culture Observations : VERY LIGHT GROWTH OF MIXED GENITAL SAGE. NO POTENTIAL PATHOGENS SEEN. Normal [facility] Comment on above: Performed By: #### U RCX ####[facility] [address] [place] [address]Dr. Omid Bowden UA RANDOM W/MICROSCOPICon BACTERIA TRACE Abnormal NONE SEEN [facility] Comment on above: Performed By: #### H GB #### [facility] [address] [place] [address] Dr. Omid Bowden Bilirubin Ql (U) Negative Normal NEGATIVE [facility] Comment on above: Performed By: #### H GB #### [facility] [address] [place] [address] Dr. Omid Bowden CAST NONE SEEN Normal NONE SEEN [facility] Comment on above: Performed By: #### H GB #### [facility] [address] [place] [address] Dr. Omid Bowden Clarity (U) CLEAR Normal CLEAR [facility] Comment on above: Performed By: #### H GB #### [facility] [address] [place] [address] Dr. Omid Bowden Color (U) LT. YELLOW Normal YELLOW [facility] Comment on above: Performed By: #### H GB #### [facility] [address] [place] [address] Dr. Omid Bowden Crystals LM Nom (Urine sed) NONE SEEN Normal NONE SEEN [facility] Comment on above: Performed By: #### H GB #### [facility] [address] [place] [address] Dr. Omid Bowden Epithelial cells LM Ql (Urine sed) RARE Normal NONE SEEN /RARE [facility] Comment on above: Performed By: #### H GB #### [facility] [address] [place] [address] Dr. Omid Bowden Glucose Ql (U) Negative Normal NEGATIVE [facility] Comment on above: Performed By: #### H GB #### [facility] [address] [address] [address] Omid Bowden Hemoglobin Ql (U) Negative Normal NEGATIVE [facility] Comment on above: Performed By: #### H GB #### [facility] [address] [place] [address] Dr. Omid Bowden Ketones Ql (U) Negative Normal NEGATIVE [facility] Comment on above: Performed By: #### H GB #### [facility] [address] [place] [address] Dr. Omid Bowden LEUKOCYTES SMALL Abnormal NEGATIVE [facility] Comment on above: Performed By: #### H GB #### [facility] [address] [place] [address] Dr. Omid Bowden MUCOUS NONE SEEN Normal NONE SEEN [facility] Comment on above: Performed By: #### H GB #### [facility] [address] [place] [address] Dr. Omid Bowden Nitrite Ql (U) Negative Normal NEGATIVE [facility] Comment on above: Performed By: #### H GB #### [facility] [address] [place] [address] Dr. Omid Bowden pH (U) 6.0 [pH] Normal 5-9 [facility] Comment on above: Performed By: #### H GB #### [facility] [address] [place] [address] Dr. Omid Bowden RBC 0-2 Normal 0-2 [facility] Comment on above: Performed By: #### H GB #### [facility] [address] [place] [address] Dr. Omid Bowden SPEC GRAVITY <=1.005 Abnormal 1.005-<=1.0 25 [facility] Comment on above: Performed By: #### H GB #### [facility] [address] [address] [address] Omid Bowden UA PROTEIN Negative Normal NEGATIVE/ TRACE [facility] Comment on above: Performed By: #### H GB #### [facility] [address] [address] [address] Omid Bowden Urobilinogen Qn (U) 0.2 {Jose'U}/dL Normal 0.2 - 1. 0 [facility] Comment on above: Performed By: #### H GB #### [facility] [address] [address] [address] Omid Bowden WBC 0-2 Abnormal NONE SEEN [facility] Comment on above: Performed By: #### H GB #### [facility] [address] [address] [address] Omid Bowden Creatinine [Mass/volume] in Serum or PlasmaOrdered By: Christiano Gonzales on 11-29-2022 Creatinine [Mass/Vol] 1.37 mg/dL 0.60-1.20 [facility] - Chemistry and C hemistry - challengeOrdered By: Christiano Gonzales on 11-29-2022 GFR/1.73 sq M.predicted MDRD (S/P/Bld) [Vol rate/Area] 39.034 mL/min/{1.73_m2} [facility] No Panel InformationOrdered By: Christiano Gonzales on 11-29-2022 Pharmacy Creatinine Clearance (Chem 31.71 [facility] Urea nitrogen [Mass/volume] in Serum or PlasmaOrdered By: Christiano Gonzales on 11-29-2022 Urea nitrogen [Mass/Vol] 35 mg/dL 7-25 [facility] Surgical Pathologyon 023 Surgical Pathology (NOTE) -- [...] SURGICAL PATHOLOGY CONSULTATION Patient Name: HARMAN MCLEOD [facility] Rec: [id number] Path Number: [id number] [facility] ANATOMIC PATHOLOGY [address] [place] [id number] Normal [facility] Comment on above: Performed By: #### P PPVS #### [facility] [address] [place] [phone] Prosthodontist/Owner: Fidel Hylton MD Ambulatory Visit Summaryon 0 11-22-2022 Ambulatory Visit Summary HARMAN MCLEOD :1940 Visit Date:11/22/2022 Ambulatory Visit Instructions Your Care Team Attending Physician - CHELSI CARDONA, Iliana Ramirez Primary Care Physician - Hayden CARDONA, Matues This Is Your Medications List albuterol (albuterol [...] and diastolic (congestive) heart failure Atherosclerosis of [place] artery of extremity BMI 36.0-36.9,adult Brain stem [...] Stage 2 chronic kidney disease Normal [facility] General Surgery Office/Clini c Noteon [...] CARDONA, DANIEL Jose Only if needed [address] [place] [address]- Additional Instructions: Problem List/Past Medical History Ongoing 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 Normal [facility] Comment on above: Result Comment: Elec tronically Signed By: CHELSI CARDONA, Iliana Alvarez\Date and Time Signed: 11/22/22 15:17 EDT Covid-19 PCR (CVDTB)on SARS-CoV-2 (COVID-19) RNA MARII+probe Ql (Unsp spec) Not detected Normal NOT DETECTED [facility] Comment on above: Result Comment: When [...] for this test is supported by the Equal Opportunity Representative of Health and Human Service's declaration that [...] used). Performed By: #### H GB #### [facility] [address] [address] [address] Omid Bowden INFLUENZA A AND B AGon 11-16 [facility] SEE BELOW Normal [facility] Comment on above: Result Comment: Nega tive for Flu A protein angiten. Infection due to Flu A cannot be ruled out. Flu A angiten in the sample may be below the detection limit of the test. Performed By: #### I NFLUAB ####[facility] [address] [place] [address]DrMedardo Bowden INFLUBNEGH SEE BELOW Normal [facility] Comment on above: Result Comment: Nega tive for Flu B protein antigen. Infection due to Flu B cannot be ruled out. Flu B antigen in the sample may be below the detection limit of the test. Performed By: #### I NFLUAB ####[facility] [address] [place] [address]DrMedardo Bowden INFLUENZA A AG Negative Normal NEGATIVE SEE COMMENT [facility] Comment on above: Performed By: #### I NFLUAB ####[facility] [address] [place], [place] [address]DrMedardo Bowdne INFLUENZA B AG Negative Normal NEGATIVE SEE COMMENT [facility] Comment on above: Performed By: #### I NFLUAB ####[facility] [address] [place], [place] [address]Dr. Omid Bowden CNOVSPon 11-09-2022 CNOVSP Visit (SP) Office ([facility]) HARMAN MCLEOD ([id number]) 1940 F Date Time Provider Department 11/09/22 2:00 PM [facility] During your visit today, we recorded the following information about you: Temperature Pulse Respiration Blood pressure 97.1 degrees 66/minute 18/minute 142/72 Weight Height 84.7 kg 1.549 m Wallace Stone MD 11/09/2022 2:24 PM Signed PATIENT NAME: Harman Mcleod CLINIC NO.: [id number] ATTENDING PHYSICIAN: Wallace Stone MD DATE OF SERVICE: November 09, [address] Banks referring provider defined for this encounter. here is an update on a follow up visit on female Harman Mcleod at the clinic 11/09/2022 Diagnosis: T1b, N0, M0- R breast, Tumor 9 mm, Grade 2, Margins negative, Negative LVI, 2 SNL negative, ER and MA >95% positive, Her2 IHC 1+ Treatment History: [...] LABS: Gluc (more content not included)... Normal [facility] CNPNon 11-09-2022 CNPN Telephone (NCCAP) HARMAN MCLEOD ([id number]) 1940 F Date Time Provider Department 11/09/22 [facility] During your visit today, we recorded the following information about you: Carlos Brooks 11/09/2022 2:45 PM Signed Vascular Consult [facility] Previous patient of Dr. Mendez 3 years or more. Janeth/Dudley: Can you please refer patient and follow up? Thanks! Carlos Pereira Pss 11/10/2022 8:46 AM Signed Janeth: Information ready for you. Adriana Ko [facility] 11/10/2022 9:38 AM Signed Records faxed. [...] Fully Assessed Reason for Visit: Referral Information [[id number]] Cmt: Vascular Consult Prescriptions as of 11/16/2022 [...] daily at bedtime. Cut in half - Nwakj-9-ZZZ-EPA-Fish Oil 1,000 mg (120 mg-180 mg) cap Take 2 g by mouth twice daily. - isosorbide mononitrate ER (IMDUR) 60 mg 24 hr tablet Take 60 mg by mouth twice daily. Problem List As Of Date 11/09/2022 Noted Resolved Hypertension [I10] DM type 2 (diabetes mellitus, type 2) ([facility]) [E1* Essential hypertension [I10] 01/16/2017 Type 2 diabetes mellitus without complication, *01/16/2017 Hypothyroidism [E03.9] 01/16/2017 Dyslipidemia [E78.5] 01/16/2017 Atherosclerosis of [place] coronary artery of na*01/16/2017 S/P coronary artery stent placement [Z95.5] 01/16/2017 Moderate smoker (20 or less per day) [F17.210] 01/16/2017 PAD (peripheral artery disease) ([facility]) [I73.9] 01/16/2017 Vaginal lesion [N89.8] 01/20/2017 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 Normal [facility] Comment on above: Result Comment: Elec [...] Iliana Ramirez Where: General Surgery Chelsi/Angelita Victor [facility] General Surgery Office/Clini c Noteon 11-04-2022 [...] and diastolic (congestive) heart failure Atherosclerosis of [place] artery of extremity BMI 36.0-36.9,adult Brain stem [...] Family Histor (more content not included)... Normal [facility] Comment on above: Result Comment: Elec [...] by: MIGUELITO TELLEZ Date: 2022-11-02 17:17 Normal [facility] Pathology Noteon 10-26-2022 Pathology Note [id number]#1.0 0CD:127 Normal [facility] Ambulatory Visit Summaryon 0 10-25-2022 Ambulatory Visit Summary HARMAN MCLEOD :1940 Visit Date:10/25/2022 Ambulatory Visit Instructions Your Care Team Attending Physician - CHELSI CARDONA, Iliana Ramirez Primary Care Physician - Hayden CARDONA, Mateus This Is Your Medications List albuterol (albuterol 0.083% Inh Cyrs 3 mL) amlodipine (amLODIPine 5 mg Tab) [...] GAGNON MD Where: General Surgery Nill/Angelita Victor [facility] General Surgery Office/Clini c Noteon 10-25-2022 [...] and diastolic (congestive) heart failure Atherosclerosis of [place] artery of extremity BMI 36.0-36.9,adult Brain stem [...] disease: Mo (more content not included)... Normal [facility] Comment on above: Result Comment: Elec tronically Signed By: CHELSI CARDONA, Iliana Alvarez\Date and Time Signed: 10/25/22 16:13 EST Operative Reporton 3 Operative Report [id number]#1.0 0CD:127 Normal [facility] RAD - Ultrasound Reporton RAD - Ultrasound Report [id number]#1.0 0CD:127 Normal [facility] NM SENTNL NODEon 10-19-2022 NM SENTNL [...] by: KRISTIN JAQUEZ Date: 2022-10-19 10:41 Normal [facility] POINT OF CARE GLUCOSEon Glucose [Mass/Vol] 153 mg/dL Critically high 74-106 [facility] Comment on above: Performed By: #### P OCGLUC #### [facility] [address] [place] [address] Dr. Omid Bowden RAD - MISCon 10-19-2022 RAD - MISC [id number]#1.0 0CD:127 Normal [facility] RAD - MISC [id number] 20 [id number]#1.0 0CD:127 Normal [facility] RAD - Ultrasound Reporton RAD - Ultrasound Report [id number] 0CD:127 Normal [facility] RAD - Ultrasound Report [id number]#1.0 0CD:127 Normal [facility] US BREAST SPECIMENon 023 US BREAST SPECIMEN Patient: HARMAN MCLEOD Exam Date: 10/19/2022 : 1940 Gender:F Ordering : DR ILIANA GAGNON . Admission #: [id number] Family : Order #: [id number] CLICK HERE TO VIEW EXAM RADIOLOGY REPORT PROCEDURE: US BREAST SPECIMEN COMPARISON: None. INDICATIONS: Specimen from breast FINDINGS: Breast specimen demonstrates inclusion of the targeted mass as well as the micro clip marker CONCLUSION: Targeted mass and micro clip marker included within the specimen Dictated by: Judson Bauman MD on 10/19/2022 at 11:46 Approved by: Judson Bauman MD on 10/19/2022 at 11:47 Normal [facility] US GUIDE LOCAL BREAST RTon 0 10-19-2022 US GUIDE LOCAL BREAST RT Patient: HARMAN MCLEOD Exam Date: 10/19/2022 : 1940 Gender:F Ordering : DR ILIANA GAGNON . Admission #: [id number] Family : Order #: [id number] CLICK HERE TO VIEW EXAM RADIOLOGY REPORT [...] clip marker LOCATION: Right breast 9 NEEDLE: [employer] spring hook; 20 g by 5 cm needle and wire. MEDICATION: 6 cubic cm Superficial and deep buffered 1% lidocaine. COMPLICATIONS: None. CONCLUSION: Technically successful hookwire localization. Dictated by: Judson Bauman MD on 10/19/2022 at 09:04 Approved by: Judson Bauman MD on 10/19/2022 at 09:05 Normal [facility] US SENTINEL NODEon US SENTINEL [...] by: JUDSON BAUMAN Date: 2022-10-19 08:59 Normal [facility] RAD - MISCon 10-17-2022 RAD - MISC [id number] 20 [id number]#1.0 0CD:127 Normal [facility] CBC AUTO DIFFon 10-11-2022 BASO # 0.0 103/ul Normal 0.0-0.1 [facility] Comment on above: Performed By: #### H GB #### [facility] [address] [place] [address] Dr. Omid Bowden Basophils/100 WBC (Bld) 0.2 % Normal 0.2-2.0 [facility] Comment on above: Performed By: #### H GB #### [facility] [address] [place] [address] Dr. Omid Bowden EO # 0.0 103/ul Normal 0.0-0.7 [facility] Comment on above: Performed By: #### H GB #### [facility] [address] [place] [address] Dr. Omid Bowden Eosinophils/100 WBC (Bld) 0.3 % Critically low 0.9-7.0 [facility] Comment on above: Performed By: #### H GB #### [facility] [address] [place] [address] Dr. Omid Bowden Erythrocyte distribution width (RBC) [Ratio] 13.7 % Normal 11.0-15.0 [facility] Comment on above: Performed By: #### H GB #### [facility] [address] [place] [address] Dr. Omid Bowden Hematocrit (Bld) [Volume fraction] 39.6 % Normal 36.0-48.0 [facility] Comment on above: Performed By: #### H GB #### [facility] [address] [place] [address] Dr. Omid Bowden Hemoglobin (Bld) [Mass/Vol] 12.3 g/dL Normal 12.0-16.0 [facility] Comment on above: Performed By: #### H GB #### [facility] [address] [place] [address] Dr. Omid Bowden IG # 0.06 10e3/ul Critically high 0.00-0.03 [facility] Comment on above: Performed By: #### H GB #### [facility] [address] [place] [address] Dr. Omid Bowden IG % 0.5 % Normal 0.0-0.5 [facility] Comment on above: Performed By: #### H GB #### [facility] [address] [place] [address] Dr. Omid Bowden LYMPH # 2.9 103/ul Normal 1.2-3.8 [facility] Comment on above: Performed By: #### H GB #### [facility] [address] [place] [address] Dr. Omid Bowden Lymphocytes/100 WBC (Bld) 26.2 % Normal 20.5-60.0 [facility] Comment on above: Performed By: #### H GB #### [facility] [address] [place] [address] Dr. Omid Bowden MANUAL DIFF REQ NO Normal [facility] Comment on above: Performed By: #### H GB #### [facility] [address] [place] [address] Dr. Omid Bowden MCH (RBC) [Entitic mass] 28.3 pg Normal 26.7-34.0 [facility] Comment on above: Performed By: #### H GB #### [facility] [address] [place] [address] Dr. Omid Bowden MCHC (RBC) [Mass/Vol] 31.1 g/dL Normal 29.9-35.2 [facility] Comment on above: Performed By: #### H GB #### [facility] [address] [place] [address] Dr. Omid Bowden MCV (RBC) [Entitic vol] 91.2 fL Normal 81.0-99.0 [facility] Comment on above: Performed By: #### H GB #### [facility] [address] [place] [address] Dr. Omid Bowden MONO # 0.9 103/ul Critically high 0.3-0.8 [facility] Comment on above: Performed By: #### H GB #### [facility] [address] [place] [address] Dr. Omid Bowden Monocytes/100 WBC (Bld) 8.3 % Normal 1.7-12.0 [facility] Comment on above: Performed By: #### H GB #### [facility] [address] [place] [address] Dr. Omid Bowden NEUT # 7.0 103/ul Critically high 1.4-6.5 [facility] Comment on above: Performed By: #### H GB #### [facility] [address] [address] [address] Omid Bowden Neutrophils/100 WBC (Bld) 64.5 % Normal 43.0-75.0 [facility] Comment on above: Performed By: #### H GB #### [facility] [address] [address] [address] Omid Bowden Platelet mean volume (Bld) [Entitic vol] 9.2 fL Critically low 9.5-13.5 [facility] Comment on above: Performed By: #### H GB #### [facility] [address] [place] [address] Dr. Omid Bowden PLT 346 103/ul Normal 150-450 [facility] Comment on above: Performed By: #### H GB #### [facility] [address] [address] [address] Omid Bowden RBC 4.34 106/ul Normal 4.20-5.40 [facility] Comment on above: Performed By: #### H GB #### [facility] [address] [address] [address] Omid Bowden WBC 10.9 103/ul Normal 4.0-11.0 [facility] Comment on above: Performed By: #### H GB #### [facility] [address] [address] [address] Omid Bowden PROF CHEM 8 (BAS METB)on Anion gap [Moles/Vol] 11.0 mmol/L Normal [facility] Comment on above: Performed By: #### L IPID, BMP #### [facility] [address] [address] [address] Omid Bowden Calcium [Mass/Vol] 9.6 mg/dL Normal 8.5-10.1 [facility] Comment on above: Performed By: #### L IPID, BMP #### [facility] [address] [address] [address] Omid Bowden Chloride [Moles/Vol] 99 mmol/L Normal 98-107 [facility] Comment on above: Performed By: #### L IPID, BMP #### [facility] [address] [address] [address] Omid Bowden CO2 [Moles/Vol] 32.0 mmol/L Normal 21.0-32.0 [facility] Comment on above: Performed By: #### L IPID, BMP #### [facility] [address] [place] [address] Dr. Omid Bowden Creatinine [Mass/Vol] 1.03 mg/dL Critically high 0.55-1.02 [facility] Comment on above: Performed By: #### L IPID, BMP #### [facility] [address] [place] [address] Dr. Omid Bowden EGFR-AF AUSTRALIAN >60 Normal >=60 [facility] Comment on above: Performed By: #### L IPID, BMP #### [facility] [address] [place] [address] Dr. Omid Bowden EGFR-NON AF AUSTRALIAN 52 mL/min/1.73m2 Critically low >=60 [facility] Comment on above: Performed By: #### L IPID, BMP #### [facility] [address] [place] [address] Dr. Omid Bowden Glucose [Mass/Vol] 94 mg/dL Normal 74-106 [facility] Comment on above: Performed By: #### L IPID, BMP #### [facility] [address] [place] [address] Dr. Omid Bowden Potassium [Moles/Vol] 4.0 mmol/L Normal 3.5-5.1 [facility] Comment on above: Performed By: #### L IPID, BMP #### [facility] [address] [place] [address] Dr. Omid Bowden Sodium [Moles/Vol] 138 mmol/L Normal 136-145 [facility] Comment on above: Performed By: #### L IPID, BMP #### [facility] [address] [place] [address] Dr. Omid Bowden Urea nitrogen [Mass/Vol] 28.0 mg/dL Critically high 7.0-18.0 [facility] Comment on above: Performed By: #### L IPID, BMP #### [facility] [address] [address] [address] Omid Bowden Urea nitrogen/Creatinine [Mass ratio] 27.2 mg/mg Normal [facility] Comment on above: Performed By: #### L IPID, BMP #### [facility] [address] [address] [address] Omid Bowden PROTIMEon 10-11-2022 INR Coag (PPP) [Relative time] 0.99 {INR} Normal [facility] Comment on above: Performed By: #### H GB #### [facility] [address] [place] [address] Dr. Omid Bowden INR GUIDELINES SEE BELOW Normal [facility] Comment on above: Result Comment: PERLITA RED INR: 2.0 - 3.0 CONDITIONS NOT LISTED BELOW 2.5 - 3.5 FOR PROSTHETIC HEART VALVE REPLACEMENT 2.5 - 3.5 RECURRENT THROMBOSIS Performed By: #### H GB #### [facility] [address] [place] [address] Dr. Omid Bowden PT Coag (PPP) [Time] 10.5 s Normal 9.0-11.6 [facility] Comment on above: Performed By: #### H GB #### [facility] [address] [place] [address] Dr. Omid Bowden PTTon 10-11-2022 aPTT Coag (Bld) [Time] 28.6 s Normal 22.3-36.2 [facility] Comment on above: Performed By: #### H GB #### [facility] [address] [place] [address] Dr. Omid Bowden Consultation Noteon 10-06-19 Consultation Note [id number]#1.0 0CD:127 Normal [facility] INSULINon 10-01-2022 Insulin 22.8 uIU/mL Normal 2.6-24.9 [facility] Comment on above: Performed By: #### L IPID, BMP #### [facility] [address] [address] [address] Omid Bowden GLYCOHEMOGLOBIN A1Con 2022 ADA RECOMMENDATION SEE BELOW Normal [facility] Comment on above: Result Comment: ADA RECOMMENDED LIMIT 4.0 - 6.0 ADA THERAPEUTIC TARGET < 7.0 ACTION SUGGESTED > 7.0 Performed By: #### H GB #### [facility] [address] [address] [address] Omid Bowden Glucose [Mass/Vol] 177 mg/dL Normal [facility] Comment on above: Performed By: #### H GB #### [facility] [address] [address] [address] Omid Bowden HbA1c (Bld) [Mass fraction] 7.8 % Critically high 4.5-6.2 [facility] Comment on above: Performed By: #### H GB #### [facility] [address] [address] [address] Omid Bowden PROF 14(COMP METB)on 023 Albumin [Mass/Vol] 3.0 g/dL Critically low 3.4-5.0 [facility] Comment on above: Performed By: #### C MP ####[facility] [address] [address]DrMedardo Bowden Albumin/Globulin [Mass ratio] 0.7 {ratio} Normal [facility] Comment on above: Performed By: #### C MP ####[facility] [address] [address]DrMedardo Bowden ALP [Catalytic activity/Vol] 73 U/L Normal 46-116 [facility] Comment on above: Performed By: #### C MP ####[facility] [address] [address]DrMedardo Bowden ALT [Catalytic activity/Vol] 16 U/L Normal 14-59 [facility] Comment on above: Performed By: #### C MP ####[facility] [address] [address]DrMedardo Bowden Anion gap [Moles/Vol] 11.3 mmol/L Normal [facility] Comment on above: Performed By: #### C MP ####[facility] [address] [address]Dr. Omid Kal AST [Catalytic activity/Vol] 14 U/L Critically low 15-37 [facility] Comment on above: Performed By: #### C MP ####[facility] Tzc[address] [place], [place] [address]Dr. Aixamegan Kal Bilirubin [Mass/Vol] 0.3 mg/dL Normal 0.2-1.0 [facility] Comment on above: Performed By: #### C MP ####[facility] [address] [place], [place] [address]Dr. Omid Bowden Calcium [Mass/Vol] 9.5 mg/dL Normal 8.5-10.1 [facility] Comment on above: Performed By: #### C MP ####[facility] C[address] [place], [place] [address]Dr. Omid Bowden Chloride [Moles/Vol] 102 mmol/L Normal 98-107 [facility] Comment on above: Performed By: #### C MP ####[facility] [address] [place], [place] [address]Dr. Omid Bowden CO2 [Moles/Vol] 31.1 mmol/L Normal 21.0-32.0 [facility] Comment on above: Performed By: #### C MP ####[facility] [address] [place], [place] [address]Dr. Omid Bowden Creatinine [Mass/Vol] 1.28 mg/dL Critically high 0.55-1.02 [facility] Comment on above: Performed By: #### C MP ####[facility] W[address] [place], [place] [address]Dr. Omid Bowden EGFR-AF AUSTRALIAN 49 mL/min/1.73m2 Critically low >=60 [facility] Comment on above: Performed By: #### C MP ####[facility] [address] [place], [place] [address]Dr. Omid Bowden EGFR-NON AF AUSTRALIAN 40 mL/min/1.73m2 Critically low >=60 [facility] Comment on above: Performed By: #### C MP ####[facility] [address] [address]Dr. Aixamegan Kal Globulin (S) [Mass/Vol] 4.4 g/dL Normal [facility] Comment on above: Performed By: #### C MP ####[facility] Qpyp[address]rwrj[address] [place], [place] [address]Dr. Aixamegan Kal Glucose [Mass/Vol] 103 mg/dL Normal 74-106 [facility] Comment on above: Performed By: #### C MP ####[facility] [address] [place], [place] [address]Dr. Omid Bowden Potassium [Moles/Vol] 4.4 mmol/L Normal 3.5-5.1 [facility] Comment on above: Performed By: #### C MP ####[facility] Ahhq[address]cyz[address] [place], [place] [address]Dr. Aixamegan Bowden Protein [Mass/Vol] 7.4 g/dL Normal 6.4-8.2 [facility] Comment on above: Performed By: #### C MP ####[facility] [address] [place], [place] [address]Dr. Omid Bowden Sodium [Moles/Vol] 140 mmol/L Normal 136-145 [facility] Comment on above: Performed By: #### C MP ####[facility] [address]ks[address] [place], [place] [address]Dr. Omid Bowden Urea nitrogen [Mass/Vol] 27.0 mg/dL Critically high 7.0-18.0 [facility] Comment on above: Performed By: #### C MP ####[facility] [address] [place], [place] [address]Dr. Omid Bowden Urea nitrogen/Creatinine [Mass ratio] 21.1 mg/mg Normal [facility] Comment on above: Performed By: #### C MP ####[facility] [address] [place], [place] [address]Dr. Omid Bowden Formson 09-29-2022 Forms [id number]#1.0 0CD:127 Normal [facility] Consent for Procedure/Surger yon 09-26-2022 Consent for Procedure/Surgery [id number]#1.0 0CD:127 Normal [facility] Consultation Noteon 09-23-19 Consultation Note [id number]#1.0 0CD:127 Normal [facility] CNOVon 09-22-2022 CNOV Office Visit (RADTSA ) HARMAN MCLEOD ([id number]) 1940 F Date Time Provider Department 09/22/22 1:00 PM MARCIN SHAH During your visit today, we recorded the following information about you: Marcin Shah MD 2022 6:06 AM Addendum Radiation Oncology - New Patient/Consult Note PATIENT NAME: Harman Mcleod PATIENT REQUESTING PHYSICIAN: Dr. 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 PATIENT IDENTIFICATION: This patient was seen in the Department of Radiation Oncology at the [facility] with Marcin Shah MD. She was accompanied today by her family. Final recommendations will be communicated back to the requesting physician by way of the shared medical record, or letter to requesting physician via US mail. HISTORY OF PRESENT ILLNESS: Ms. Mcleod is an 82-year-old woman from [place], [place] who was discovered on screening mammogram from July 2022 to have an abnormality within the anterior upper outer quadrant of the right breast. This was confirmed on ultrasound and she underwent stereotactic biopsy on 08/19/2022 with pathology revealing intermediate grade IDC that was ER/MA positive HER2 negative. She has met with [...] breast cancer. INTERVAL/HISTORY/REVIE W OF SYSTEMS: Ms. Mcloed reports no palpable abnormality in the area [...] tablet crenshaw (more content not included)... Normal [facility] CNOVSPon 09-22-2022 CNOVSP Visit (SP) Office (HEMASA) HARMAN MCLEOD ([id number]) 1940 F Date Time Provider Department 09/22/22 11:30 AM WALLACE STONE During your visit today, we recorded the following information about you: Temperature Pulse Respiration Blood pressure 97.8 degrees 70/minute 16/minute 137/64 Weight Height 84.8 kg 1.549 m Wallace Stone MD 09/22/2022 5:19 PM Signed PATIENT NAME: Harman Mcleod CLINIC NO.: [id number] ATTENDING PHYSICIAN: Wallace Stone MD DATE OF [...] provisional grade 1 through 2, ER and MA greater than 95% positive, HER2/holden negative with an IHC score of 1+ and FISH negative at [facility]. This patient was subsequently referred to Dr. Iliana Gagnon for surgical consultation. Patient denies any previous history of abnormal mammograms and or breast biopsy. She has had a recent bone density in [place] and was diagnosed with osteoporosis and started on Prolia as well. Patient has a sister who was diagnosed with breast cancer at the age of 82 and her daughter diagnosed with breast cancer at the age of 37. She quit smoking approximately 4 years ago. 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 She [...] mouth daily at bedtime. Cut in half Hohpj-0-UYQ-EPA-Fish Oil 1,000 mg (120 mg-180 mg) cap [...] high r (more content not included)... Normal [facility] Destinee 09-22-2022 JENNY Telephone (INDIA) HARSHAHARMAN ([id number]) 1940 F Date Time Provider Department 09/22/22 [...] daily at bedtime. Cut in half - Ywzgi-4-UNF-EPA-Fish Oil 1,000 mg (120 mg-180 mg) cap Take 2 g by mouth twice daily. - isosorbide mononitrate ER (IMDUR) 60 mg 24 hr tablet Take 60 mg by mouth twice daily. 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 Performed By: #### [facility] ####[address] [address]Dr. Omid Bowden INFLUENZA A AND B AGon 09-21 INFLUANEGH SEE BELOW Normal [facility] Comment on above: Result Comment: Nega tive for Flu A protein angiten. Infection due to Flu A cannot be ruled out. Flu A angiten in the sample may be below the detection limit of the test. Performed By: #### I NFLUAB ####[facility] [address] [address]Dr. Omid Bowden INFLUBNEGH SEE BELOW Normal [facility] Comment on above: Result Comment: Nega tive for Flu B protein antigen. Infection due to Flu B cannot be ruled out. Flu B antigen in the sample may be below the detection limit of the test. Performed By: #### I NFLUAB ####[facility] [address] [address]Dr. Omdi Bowden INFLUENZA A AG Negative Normal NEGATIVE SEE COMMENT [facility] Comment on above: Performed By: #### I NFLUAB ####[facility] [address] [address]Dr. Omid Bowden INFLUENZA B AG Negative Normal NEGATIVE SEE COMMENT [facility] Comment on above: Performed By: #### I NFLUAB ####[facility] [address] [address]Dr. Omid Bowden LIPID PROFILEon 09-16-2022 CHOL-HDL RATIO NORM SEE BELOW Normal [facility] Comment on above: Result Comment: 3.3 - 4.4 LOW RISK 4.4 - 7.1 AVERAGE RISK 7.1 - 11.0 MODERATE RISK >11.0 HIGH RISK Performed By: #### L IPID, BMP #### [facility] [address] [address] [address] Omid Bowden Cholesterol [Mass/Vol] 210 mg/dL Critically high <=200 [facility] Comment on above: Performed By: #### L IPID, BMP #### [facility] [address] [address] [address] Omid Bowden Cholesterol in HDL [Mass/Vol] 49 mg/dL Normal 40-60 [facility] Comment on above: Performed By: #### L IPID, BMP #### [facility] [address] [address] [address] Omid Bowden Cholesterol in LDL [Mass/Vol] 84.2 mg/dL Normal [facility] Comment on above: Performed By: #### L IPID, BMP #### [facility] [address] [place] [address] Dr. Omid Bowden Cholesterol.total/Chol esterol in HDL [Mass ratio] 4.3 {ratio} Normal [facility] Comment on above: Performed By: #### L IPID, BMP #### [facility] [address] [place] [address] Dr. Omid Bowden HDL NORMAL > or = 60 mg/dl - LO W CARDIOVASCULAR RISK <40 mg/dl - HIGH CARDIOVASCULAR RISK Normal [facility] Comment on above: Performed By: #### L IPID, BMP #### [facility] [address] [place] [address] Dr. Omid Bowden LDL CALC NORMAL SEE BELOW Normal [facility] Comment on above: Result Comment: <100 mg/dl OPTIMAL 100 - 129 mg/dl NEAR OR ABOVE OPTIMAL 130 - 159 mg/dl BORDERLINE HIGH 160 - 189 mg/dl HIGH >190 mg/dl VERY HIGH Performed By: #### L IPID, BMP #### [facility] [address] [place] [address] Dr. Omid Bowden Triglyceride [Mass/Vol] 384 mg/dL Critically high <=150 [facility] Comment on above: Performed By: #### L IPID, BMP #### [facility] [address] [place] [address] Dr. Omid Bowden VLDL CALC 76.8 mg/dL Normal [facility] Comment on above: Performed By: #### L IPID, BMP #### [facility] [address] [place] [address] Dr. Omid Bowden PROF CHEM 8 (BAS METB)on Anion gap [Moles/Vol] 10.8 mmol/L Normal [facility] Comment on above: Performed By: #### L IPID, BMP #### [facility] [address] [address] [address] Omid Bowden Calcium [Mass/Vol] 8.8 mg/dL Normal 8.5-10.1 [facility] Comment on above: Performed By: #### L IPID, BMP #### [facility] [address] [address] [address] Omid Bowden Chloride [Moles/Vol] 98 mmol/L Normal 98-107 [facility] Comment on above: Performed By: #### L IPID, BMP #### [facility] [address] [address] [address] Omid Bowden CO2 [Moles/Vol] 34.5 mmol/L Critically high 21.0-32.0 [facility] Comment on above: Performed By: #### L IPID, BMP #### [facility] [address] [place] [address] Dr. Omid Bowden Creatinine [Mass/Vol] 1.17 mg/dL Critically high 0.55-1.02 [facility] Comment on above: Performed By: #### L IPID, BMP #### [facility] [address] [place] [address] Dr. Omid Bowden EGFR-AF AUSTRALIAN 54 mL/min/1.73m2 Critically low >=60 [facility] Comment on above: Performed By: #### L IPID, BMP #### [facility] [address] [place] [address] Dr. Omid Bowden EGFR-NON AF AUSTRALIAN 45 mL/min/1.73m2 Critically low >=60 [facility] Comment on above: Performed By: #### L IPID, BMP #### [facility] [address] [address] [address] Omid Bowden Glucose [Mass/Vol] 193 mg/dL Critically high 74-106 [facility] Comment on above: Performed By: #### L IPID, BMP #### [facility] [address] [place] [address] Dr. Omid Bowden Potassium [Moles/Vol] 3.3 mmol/L Critically low 3.5-5.1 [facility] Comment on above: Performed By: #### L IPID, BMP #### [facility] [address] [address] [address] Omid Bowden Sodium [Moles/Vol] 140 mmol/L Normal 136-145 [facility] Comment on above: Performed By: #### L IPID, BMP #### [facility] [address] [address] [address] Omid Bowden Urea nitrogen [Mass/Vol] 31.0 mg/dL Critically high 7.0-18.0 [facility] Comment on above: Performed By: #### L IPID, BMP #### [facility] [address] [address] [address] Omid Bowden Urea nitrogen/Creatinine [Mass ratio] 26.5 mg/mg Normal [facility] Comment on above: Performed By: #### L IPID, BMP #### [facility] [address] [address] [address] Omid Bowden Facesheeton 09-13-2022 Facesheet [id number]#1.0 0CD:127 Normal [facility] Consultation Noteon 09-01-20 Consultation Note [id number]#1.0 0CD:127 Normal [facility] ED Note-Physicianon 09-01-20 ED Note-Physician [id number]#1.0 0CD:127 Normal [facility] Lab Reportson 09-01-2022 Lab Reports [id number]#1.0 0CD:127 Normal [facility] Lab Reports [id number]#1.0 0CD:127 Normal [facility] Physician Referralon 022 Physician Referral [id number]#1.0 0CD:127 Normal [facility] C. DIFF PCRon 08-23-2022 C. DIFFICILE PCR Negative Normal NEGATIVE [facility] Comment on above: Performed By: #### C DIFPOC ####[facility] [address] [address]Dr. Omid Bowden CBC AUTO DIFFon 08-19-2022 BASO # 0.0 103/ul Normal 0.0-0.1 [facility] Comment on above: Performed By: #### C BC ####[facility] [address] [place], [place] [address]Dr. Omid Kal Basophils/100 WBC (Bld) 0.3 % Normal 0.2-2.0 [facility] Comment on above: Performed By: #### C BC ####[facility] [address] [place], [place] [address]Dr. Omid Bowden EO # 0.5 103/ul Normal 0.0-0.7 [facility] Comment on above: Performed By: #### C BC ####[facility] [address] [place], [place] [address]Dr. Omid Bowden Eosinophils/100 WBC (Bld) 3.2 % Normal 0.9-7.0 [facility] Comment on above: Performed By: #### C BC ####[facility] [address] [place], [place] [address]Dr. Omid Bowden Erythrocyte distribution width (RBC) [Ratio] 14.1 % Normal 11.0-15.0 [facility] Comment on above: Performed By: #### C BC ####[facility] [address] [place], [place] [address]Dr. Omid Bowden Hematocrit (Bld) [Volume fraction] 36.1 % Normal 36.0-48.0 [facility] Comment on above: Performed By: #### C BC ####[facility] [address] [place], [place] [address]Dr. Omid Bowden Hemoglobin (Bld) [Mass/Vol] 11.7 g/dL Critically low 12.0-16.0 [facility] Comment on above: Performed By: #### C BC ####[facility] [address] [id number]. Omid Bowden IG # 0.08 10e3/ul Critically high 0.00-0.03 [facility] Comment on above: Performed By: #### C BC ####[facility] [address] [address]Dr. Omid Bowden IG % 0.5 % Normal 0.0-0.5 [facility] Comment on above: Performed By: #### C BC ####[facility] [address] [address]Dr. Omid Kal LYMPH # 1.2 103/ul Normal 1.2-3.8 [facility] Comment on above: Performed By: #### C BC ####[facility] [address] [address]Dr. Omid Bowden Lymphocytes/100 WBC (Bld) 7.5 % Critically low 20.5-60.0 [facility] Comment on above: Performed By: #### C BC ####[facility] [address] [address]Dr. Aixamegan Bowden MANUAL DIFF REQ NO Normal [facility] Comment on above: Performed By: #### C BC ####[facility] [address] [address]Dr. Omid Bowden MCH (RBC) [Entitic mass] 29.2 pg Normal 26.7-34.0 [facility] Comment on above: Performed By: #### C BC ####[facility] [address] [address]Dr. Omid Kal MCHC (RBC) [Mass/Vol] 32.4 g/dL Normal 29.9-35.2 [facility] Comment on above: Performed By: #### C BC ####[facility] [address] [address]Dr. Omid Kal MCV (RBC) [Entitic vol] 90.0 fL Normal 81.0-99.0 [facility] Comment on above: Performed By: #### C BC ####[facility] [address] [id number]. Omid Bowden MONO # 1.0 103/ul Critically high 0.3-0.8 [facility] Comment on above: Performed By: #### C BC ####[facility] [address] [address]Dr. Omid Bowden Monocytes/100 WBC (Bld) 6.8 % Normal 1.7-12.0 [facility] Comment on above: Performed By: #### C BC ####[facility] [address] [address]Dr. Omid Bowden NEUT # 12.5 103/ul Critically high 1.4-6.5 [facility] Comment on above: Performed By: #### C BC ####[facility] [address] [address]Dr. Omid Bowden Neutrophils/100 WBC (Bld) 81.7 % Critically high 43.0-75.0 [facility] Comment on above: Performed By: #### C BC ####[facility] [address] [id number]. Omid Bowden Platelet mean volume (Bld) [Entitic vol] 8.9 fL Critically low 9.5-13.5 [facility] Comment on above: Performed By: #### C BC ####[facility] [address] [id number]. Omid Bowden PLT 252 103/ul Normal 150-450 [facility] Comment on above: Performed By: #### C BC ####[facility] [address] [id number]. Omid Bowden RBC 4.01 106/ul Critically low 4.20-5.40 [facility] Comment on above: Performed By: #### C BC ####[facility] [address] [id number]. Omid Bowden WBC 15.3 103/ul Critically high 4.0-11.0 [facility] Comment on above: Performed By: #### C BC ####[facility] [address] [place], [place] [address]Dr. Omid Bowden IRONon 08-19-2022 Iron [Mass/Vol] 59.0 ug/dL Normal 50.0-170.0 [facility] Comment on above: Performed By: #### H GB #### [facility] [address] [place], [place] [address] Dr. Omid Bowden MAMMO POST BIOPSY RIGHTon MAMMO POST BIOPSY RIGHT Patient: HARMAN MCLEOD Exam Date: 08/19/2022 : 1940 Gender:F Ordering : DR MATEUS PERRY . Admission #: [id number] Family : Order #: [id number] CLICK HERE TO VIEW EXAM This report [...] Bauman MD on 09/06/2022 at 09:57 Normal [facility] PROTIMEon 08-19-2022 INR Coag (PPP) [Relative time] 0.99 {INR} Normal [facility] Comment on above: Performed By: #### P T, PTT ####[facility] [address] [place], [place] [address]Dr. Omid Bowden INR GUIDELINES SEE BELOW Normal [facility] Comment on above: Result Comment: PERLITA RED INR: 2.0 - 3.0 CONDITIONS NOT LISTED BELOW 2.5 - 3.5 FOR PROSTHETIC HEART VALVE REPLACEMENT 2.5 - 3.5 RECURRENT THROMBOSIS Performed By: #### P T, PTT ####[facility] [address] [place], [place] [address]Hq. Omid Bowden PT Coag (PPP) [Time] 10.7 s Normal 9.0-11.6 [facility] Comment on above: Performed By: #### P T, PTT ####[facility] [address] [place], [place] [address]Ja. Omid Bowden PTTon 08-19-2022 aPTT Coag (Bld) [Time] 26.0 s Normal 22.3-36.2 [facility] Comment on above: Performed By: #### P T, PTT ####[facility] [address] [place], [place] [address]Hy. Omid Bowden US VAC ASST BX BRST RT W CLI Jose Maria 08-19-2022 US VAC ASST BX BRST RT W CLIP Patient: HARMAN MCLEOD Exam Date: 08/19/2022 : 1940 Gender:F Ordering : DR MATEUS PERRY . Admission #: [id number] Family : Order #: [id number] CLICK HERE TO VIEW EXAM This report [...] MD on 09/06/2022 at 09:55 Normal [facility] CULTURE URINEon 08-16-2022 CULTURE URINE Isolate [...] F Nitrofurantoin <=16 S F Normal [facility] Comment on above: Performed By: #### U RCX ####[facility] [address] [place] [address]Dr. Omid Bowden CARDIAC ADILIA ADMITon 022 CK [Catalytic activity/Vol] 128 U/L Normal 26-192 [facility] Comment on above: Performed By: #### L IPID, BMP #### [place] [facility] [address] [address] [address] Omid Bowden CK.MB [Mass/Vol] 2.88 ng/mL Normal <=3.60 [facility] Comment on above: Performed By: #### L IPID, BMP #### [facility] [address] [address] [address] Omid Bowden HSTROP 24.1 pg/mL Normal 4.0-51.3 [facility] Comment on above: Result Comment: CUT- OFF POINTS HAVE BEEN ESTABLISHED BASED ON THE FOURTH UNIVERSAL DEFINITIONS OF MYOCARDIAL INFARCTION. THE UPPER REFERENCE LIMIT (URL) OF TROPONIN, DEFINED THE 99TH PERCENTILE OF cTnI DISTRIBUTION IN A REFERENCE POPULATION, HAS BEEN CONFIRMED THE DECISION THRESHOLD FOR SC DIAGNOSIS. Performed By: #### L IPID, BMP #### [facility] [address] [address] [address] Omid Bowden JACINTA 61 ng/mL Normal 9-82 [facility] Comment on above: Performed By: #### L IPID, BMP #### [facility] [address] [place] [address] Dr. Omid Bowden CBC AUTO DIFFon 08-14-2022 BASO # 0.0 103/ul Normal 0.0-0.1 [facility] Comment on above: Performed By: #### H GB #### [facility] [address] [place] [address] Dr. Omid Bowden Basophils/100 WBC (Bld) 0.4 % Normal 0.2-2.0 [facility] Comment on above: Performed By: #### H GB #### [facility] [address] [place] [address] Dr. Omid Bowden EO # 0.3 103/ul Normal 0.0-0.7 [facility] Comment on above: Performed By: #### H GB #### [facility] [address] [place] [address] Dr. Omid Bowden Eosinophils/100 WBC (Bld) 2.6 % Normal 0.9-7.0 [facility] Comment on above: Performed By: #### H GB #### [facility] [address] [place] [address] Dr. Omid Bowden Erythrocyte distribution width (RBC) [Ratio] 14.1 % Normal 11.0-15.0 [facility] Comment on above: Performed By: #### H GB #### [facility] [address] [place] [address] Dr. Omid Bowden Hematocrit (Bld) [Volume fraction] 35.5 % Critically low 36.0-48.0 [facility] Comment on above: Performed By: #### H GB #### [facility] [address] [place] [address] Dr. Omid Bowden Hemoglobin (Bld) [Mass/Vol] 11.6 g/dL Critically low 12.0-16.0 [facility] Comment on above: Performed By: #### H GB #### [facility] [address] [address] [address] Omid Bowden IG # 0.06 10e3/ul Critically high 0.00-0.03 [facility] Comment on above: Performed By: #### H GB #### [facility] [address] [place] [address] Dr. Omid Bowden IG % 0.6 % Critically high 0.0-0.5 [facility] Comment on above: Performed By: #### H GB #### [facility] [address] [place] [address] Dr. Omid Bowden LYMPH # 3.4 103/ul Normal 1.2-3.8 [facility] Comment on above: Performed By: #### H GB #### [facility] [address] [place] [address] Dr. Omid Bowden Lymphocytes/100 WBC (Bld) 35.5 % Normal 20.5-60.0 [facility] Comment on above: Performed By: #### H GB #### [facility] [address] [place] [address] Dr. Omid Bowden MANUAL DIFF REQ NO Normal [facility] Comment on above: Performed By: #### H GB #### [facility] [address] [place] [address] Dr. Omid Bowden MCH (RBC) [Entitic mass] 29.5 pg Normal 26.7-34.0 [facility] Comment on above: Performed By: #### H GB #### [facility] [address] [place] [address] Dr. Omid Bowden MCHC (RBC) [Mass/Vol] 32.7 g/dL Normal 29.9-35.2 [facility] Comment on above: Performed By: #### H GB #### [facility] [address] [place] [address] Dr. Omid Bowden MCV (RBC) [Entitic vol] 90.3 fL Normal 81.0-99.0 [facility] Comment on above: Performed By: #### H GB #### [facility] [address] [place] [address] Dr. Omid Bowden MONO # 1.0 103/ul Critically high 0.3-0.8 [facility] Comment on above: Performed By: #### H GB #### [facility] [address] [place] [address] Dr. Omid Bowden Monocytes/100 WBC (Bld) 10.5 % Normal 1.7-12.0 [facility] Comment on above: Performed By: #### H GB #### [facility] [address] [place] [address] Dr. Omid Bowden NEUT # 4.8 103/ul Normal 1.4-6.5 [facility] Comment on above: Performed By: #### H GB #### [facility] [address] [place] [address] Dr. Omid Bowden Neutrophils/100 WBC (Bld) 50.4 % Normal 43.0-75.0 [facility] Comment on above: Performed By: #### H GB #### [facility] [address] [place] [address] Dr. Omid Bowden Platelet mean volume (Bld) [Entitic vol] 9.1 fL Critically low 9.5-13.5 [facility] Comment on above: Performed By: #### H GB #### [facility] [address] [place] [address] Dr. Omid Bowden PLT 276 103/ul Normal 150-450 [facility] Comment on above: Performed By: #### H GB #### [facility] [address] [place] [address] Dr. Omid Bowden RBC 3.93 106/ul Critically low 4.20-5.40 [facility] Comment on above: Performed By: #### H GB #### [facility] [address] [place] [address] Dr. Omid Bowden WBC 9.5 103/ul Normal 4.0-11.0 [facility] Comment on above: Performed By: #### H GB #### [facility] [address] [place] [address] Dr. Omid Bowden ER URINE PROFILEon 2 Bilirubin Ql (U) Negative Normal NEGATIVE [facility] Comment on above: Performed By: #### U MICRO, ERUR ####[facility] [address] [place], [place] [address]Dr. Omid Bowden Clarity (U) CLEAR Normal CLEAR [facility] Comment on above: Performed By: #### U MICRO, ERUR ####[facility] [address] [place], [place] [address]Dr. Omid Bowden Color (U) LT. YELLOW Normal YELLOW [facility] Comment on above: Performed By: #### U MICRO, ERUR ####[facility] [address] [place], [place] [address]Dr. Omid Bowden ERUAHD A micrscopic examination will be performed if indicated. Normal [facility] Comment on above: Performed By: #### U MICRO, ERUR ####[facility] [address] [place], [place] [address]Dr. Omid Bowden Glucose Ql (U) Negative Normal NEGATIVE [facility] Comment on above: Performed By: #### U MICRO, ERUR ####[facility] [address] [place], [place] [address]Dr. Omid Bowden Hemoglobin Ql (U) Negative Normal NEGATIVE [facility] Comment on above: Performed By: #### U MICRO, ERUR ####[facility] [address] [place], [place] [address]Dr. Omid Bowden Ketones Ql (U) Negative Normal NEGATIVE [facility] Comment on above: Performed By: #### U MICRO, ERUR ####[facility] [address] [place], [place] [address]Dr. Omid Bowden LEUKOCYTES TRACE Abnormal NEGATIVE [facility] Comment on above: Performed By: #### U MICRO, ERUR ####[facility] [address] [place], [place] [address]Dr. Omid Bowden Nitrite Ql (U) Negative Normal NEGATIVE [facility] Comment on above: Performed By: #### U MICRO, ERUR ####[facility] [address] [place], [place] [address]Dr. Omid Bowden pH (U) 6.0 [pH] Normal 5-9 [facility] Comment on above: Performed By: #### U MICRO, ERUR ####[facility] [address] [address]DrMedardo Bowden SPEC GRAVITY 1.020 Normal 1.005-<=1.0 25 [facility] Comment on above: Performed By: #### U MICRO, ERUR ####[facility] [address] [address]DrMedardo Bowden UA PROTEIN Negative Normal NEGATIVE/ TRACE [facility] Comment on above: Performed By: #### U MICRO, ERUR ####[facility] [address] [address]Dr. Omid Bowden UR MICRO IND INDICATED Normal [facility] Comment on above: Performed By: #### U MICRO, ERUR ####[facility] [address] [address]Dr. Omid Bowden Urobilinogen Qn (U) 0.2 {Jose'U}/dL Normal 0.2 - 1. 0 [facility] Comment on above: Performed By: #### U MICRO, ERUR ####[facility] [address] [address]DrMedardo Bowden OCC BLD IMMUNO SCREENon OCCULT BLOOD Negative Normal NEGATIVE [facility] Comment on above: Performed By: #### O BSCRN #### [facility] [address] [address] [address] Omid Bowden PROF CHEM 8 (BAS METB)on Anion gap [Moles/Vol] 5.5 mmol/L Normal [facility] Comment on above: Performed By: #### L IPID, BMP #### [facility] [address] [address] [address] Omid Bowden Calcium [Mass/Vol] 8.6 mg/dL Normal 8.5-10.1 [facility] Comment on above: Performed By: #### L IPID, BMP #### [facility] [address] [place] [address] Dr. Omid Bowden Chloride [Moles/Vol] 103 mmol/L Normal 98-107 [facility] Comment on above: Performed By: #### L IPID, BMP #### [facility] [address] [address] [address] Omid Bowden CO2 [Moles/Vol] 31.8 mmol/L Normal 21.0-32.0 [facility] Comment on above: Performed By: #### L IPID, BMP #### [facility] [address] [address] [address] Omid Bowden Creatinine [Mass/Vol] 0.99 mg/dL Normal 0.55-1.02 [facility] Comment on above: Performed By: #### L IPID, BMP #### [facility] [address] [place] [address] Dr. Omid Bowden EGFR-AF AUSTRALIAN >60 Normal >=60 [facility] Comment on above: Performed By: #### L IPID, BMP #### [facility] [address] [place] [address] Dr. Omid Bowden EGFR-NON AF AUSTRALIAN 54 mL/min/1.73m2 Critically low >=60 [facility] Comment on above: Performed By: #### L IPID, BMP #### [facility] [address] [place] [address] Dr. Omid Bowden Glucose [Mass/Vol] 112 mg/dL Critically high 74-106 [facility] Comment on above: Performed By: #### L IPID, BMP #### [facility] [address] [place] [address] Dr. Omid Bowden Potassium [Moles/Vol] 3.3 mmol/L Critically low 3.5-5.1 [facility] Comment on above: Performed By: #### L IPID, BMP #### [facility] [address] [place] [address] Dr. Omid Bowden Sodium [Moles/Vol] 137 mmol/L Normal 136-145 [facility] Comment on above: Performed By: #### L IPID, BMP #### [facility] [address] [address] [address] Omid Bowden Urea nitrogen [Mass/Vol] 20.0 mg/dL Critically high 7.0-18.0 [facility] Comment on above: Performed By: #### L IPID, BMP #### [facility] [address] [address] [address] Omid Bowden Urea nitrogen/Creatinine [Mass ratio] 20.2 mg/mg Normal [facility] Comment on above: Performed By: #### L IPID, BMP #### [facility] [address] [address] [address] Omid Bowden URINE MICROSCOPIC ONLYon BACTERIA TRACE Abnormal NONE SEEN [facility] Comment on above: Performed By: #### U MICRO, ERUR ####[facility] [address] [address]Dr. Omid Bowden Bacteria identified Cx Nom (U) INDICATED Normal [facility] Comment on above: Performed By: #### U MICRO, ERUR ####[facility] [address] [address]Dr. Omid Bowden CAST NONE SEEN Normal NONE SEEN [facility] Comment on above: Performed By: #### U MICRO, ERUR ####[facility] [address] [address]Dr. Omid Bowden Crystals LM Nom (Urine sed) NONE SEEN Normal NONE SEEN [facility] Comment on above: Performed By: #### U MICRO, ERUR ####[facility] [address] [address]Dr. Omid Bowden Epithelial cells LM Ql (Urine sed) FEW Abnormal NONE SEEN /RARE [facility] Comment on above: Performed By: #### U MICRO, ERUR ####[facility] [address] [address]Dr. Omid Bowden MUCOUS NONE SEEN Normal NONE SEEN [facility] Comment on above: Performed By: #### U MICRO, ERUR ####[facility] [address] [address]DrMedardo Bowden RBC 0-2 Normal 0-2 [facility] Comment on above: Performed By: #### U MICRO, ERUR ####[facility] [address] [place], [place] [address]Gc. Omid Bowden WBC 20-50 Abnormal NONE SEEN [facility] Comment on above: Performed By: #### U MICRO, ERUR ####[facility] [address] [place], [place] [address]Ml. Omid Bowden XR CHEST 1 Von 08-14-2022 [...] HILL BAILON Date: 2022-08-14 00:46 Normal [facility] Covid-19 PCR (CVDTBH)on SARS-CoV-2 (COVID-19) RNA MARII+probe Ql (Unsp spec) Not detected Normal NOT DETECTED [facility] Comment on above: Result Comment: When [...] for this test is supported by the Equal Opportunity Representative of Health and Human Service's declaration that [...] used). Performed By: #### C VDTBH #### [facility] [address], [place] [address] Dr. Omid Bowden MG MAMM RT DIAG FUon 022 MG MAMM RT DIAG FU Patient: HARMAN MCLEOD Exam Date: 08/08/2022 : 1940 Gender:F Ordering : DR MATEUS PERRY . Admission #: [id number] Family : Order #: [id number] CLICK HERE TO VIEW EXAM RADIOLOGY REPORT [...] uterine cancer at age 39. LOCATION: [facility] BREAST COMPOSITION: Scattered areas fibroglandular density. [...] M.D. on 08/08/2022 at 15:28 Normal [facility] PROF CHEM 8 (BAS METB)on Anion gap [Moles/Vol] 9.3 mmol/L Normal [facility] Comment on above: Performed By: #### B MP #### [facility] [address] [place] [address] Dr. Omid Bowden Calcium [Mass/Vol] 8.1 mg/dL Critically low 8.5-10.1 [facility] Comment on above: Performed By: #### B MP #### [facility] [address] [place] [address] Dr. Omid Bowden Chloride [Moles/Vol] 100 mmol/L Normal 98-107 [facility] Comment on above: Performed By: #### B MP #### [facility] [address] [address] [address] Omid Bowden CO2 [Moles/Vol] 31.9 mmol/L Normal 21.0-32.0 [facility] Comment on above: Performed By: #### B MP #### [facility] [address] [address] [address] Omid Bowden Creatinine [Mass/Vol] 1.25 mg/dL Critically high 0.55-1.02 [facility] Comment on above: Performed By: #### B MP #### [facility] [address] [place] [address] Dr. Omid Bowden EGFR-AF AUSTRALIAN 50 mL/min/1.73m2 Critically low >=60 [facility] Comment on above: Performed By: #### B MP #### [facility] [address] [place] [address] Dr. Omid Bowden EGFR-NON AF AUSTRALIAN 41 mL/min/1.73m2 Critically low >=60 [facility] Comment on above: Performed By: #### B MP #### [facility] [address] [address] [address] Omid Bowden Glucose [Mass/Vol] 215 mg/dL Critically high 74-106 [facility] Comment on above: Performed By: #### B MP #### [facility] [address] [address] [address] Omid Bowden Potassium [Moles/Vol] 3.2 mmol/L Critically low 3.5-5.1 [facility] Comment on above: Performed By: #### B MP #### [facility] [address] [address] [address] Omid Bowden Sodium [Moles/Vol] 138 mmol/L Normal 136-145 [facility] Comment on above: Performed By: #### B MP #### [facility] [address] [place], [place] [address] Dr. Omid Bowden Urea nitrogen [Mass/Vol] 32.0 mg/dL Critically high 7.0-18.0 [facility] Comment on above: Performed By: #### B MP #### [facility] [address] [place], [place] [address] Dr. Omid Bowden Urea nitrogen/Creatinine [Mass ratio] 25.6 mg/mg Normal [facility] Comment on above: Performed By: #### B MP #### [facility] [address] [place], [place] [address] Dr. Omid Bowden US BREAST RIGHT LIMITEDon US BREAST RIGHT LIMITED Patient: HARMAN MCLEOD Exam Date: 08/08/2022 : 1940 Gender:F Ordering : DR MATEUS PERRY . Admission #: [id number] Family : Order #: [id number] CLICK HERE TO VIEW EXAM RADIOLOGY REPORT [...] uterine cancer at age 39. LOCATION: [facility] BREAST COMPOSITION: Scattered areas fibroglandular density. [...] George M.D. on 08/08/2022 at 15:28 Normal [facility] CALCIUMon 08-02-2022 Calcium [Mass/Vol] 8.9 mg/dL Normal 8.5-10.1 [facility] Comment on above: Performed By: #### H GB #### [facility] [address] [address] [address] Omid Bowden CREATININEon 08-02-2022 Creatinine [Mass/Vol] 1.19 mg/dL Critically high 0.55-1.02 [facility] Comment on above: Performed By: #### H GB #### [facility] [address] [address] [address] Omid Bowden EGFR-AF AUSTRALIAN 53 mL/min/1.73m2 Critically low >=60 [facility] Comment on above: Performed By: #### H GB #### [facility] [address] [address] [address] Omid Bowden EGFR-NON AF AUSTRALIAN 44 mL/min/1.73m2 Critically low >=60 [facility] Comment on above: Performed By: #### H GB #### [facility] [address] [address] [address] Omid Bowden MG MAMM SCREEN 3D DAVID CADon 07-19-2022 MG MAMM SCREEN 3D DAVID CAD Patient: HARMAN MCLEOD Exam Date: 07/19/2022 : 1940 Gender:F Ordering : DR MATEUS PERRY . Admission #: [id number] Family : Order #: [id number] CLICK HERE TO VIEW EXAM RADIOLOGY REPORT [...] uterine cancer at age 39. LOCATION: [facility] BREAST COMPOSITION: Scattered areas fibroglandular density. [...] Bauman MD on 07/20/2022 at 07:33 Normal [facility] XR DEXA BONE DENSITYon 07-19 [...] by: JUDSON BAUMAN Date: 2022-07-19 20:17 Normal [facility] CALCIUM, IONIC (POC)on 06-28 POC Ionized Calcium 1.21 mmol/L 1.15 - 1 .33 mmol/L [facility] CHLORIDE (POC)on 06-28-2022 Chloride [Moles/Vol] 103 mmol/L 98 - 10 7 mmol/L [facility] [employer] Creatinine W/GFR Point of Ca reon 06-28-2022 Creatinine [Mass/Vol] 0.93 mg/dL 0.51 - 1.19 mg/dL [facility] eGFR, POC mL/min/1.73 m2 [facility] Comment on above: Effective Jun 13, 2022 [...] mmol/L High 0.56 - 1.39 mmol/L [facility] No Panel Informationon 06-28 Interpretation and review of laboratory results Abnormal [facility] POC Glucose Fingerstickon Glucose [Mass/Vol] 135 mg/dL High 65 - 105 mg/dL [facility] Interpretation and review of laboratory results Abnormal [facility] POCT Glucoseon 06-28-2022 Glucose [Mass/Vol] 147 mg/dL High 74 - 100 mg/dL [facility] POCT urea (BUN)on 06-28-2022 Urea nitrogen [Mass/Vol] 20 mg/dL 8 - 26 mg/dL [facility] POTASSIUM (POC)on 06-28-2022 Potassium [Moles/Vol] 3.7 mmol/L 3.5 - 4.5 mmol/L [facility] SODIUM (POC)on 06-28-2022 Sodium [Moles/Vol] 141 mmol/L 138 - 146 mmol/L [facility] PROF CHEM 8 (BAS METB)on Anion gap [Moles/Vol] 9.0 mmol/L Normal [facility] Comment on above: Performed By: #### B MP ####[facility] [address] [id number]. Omid Bowden Calcium [Mass/Vol] 9.0 mg/dL Normal 8.5-10.1 [facility] Comment on above: Performed By: #### B MP ####[facility] [address] [place], [place] [address]GyMedardo Bowden Chloride [Moles/Vol] 98 mmol/L Normal 98-107 [facility] Comment on above: Performed By: #### B MP ####[facility] [address] [place], [place] [address]Dr. Omid Bowden CO2 [Moles/Vol] 33.2 mmol/L Critically high 21.0-32.0 [facility] Comment on above: Performed By: #### B MP ####[facility] [address] [place], [place] [address]Dr. Omid Bowden Creatinine [Mass/Vol] 1.32 mg/dL Critically high 0.55-1.02 [facility] Comment on above: Performed By: #### B MP ####[facility] [address] [place], [place] [address]Dr. Omid Bowden EGFR-AF AUSTRALIAN 47 mL/min/1.73m2 Critically low >=60 [facility] Comment on above: Performed By: #### B MP ####[facility] [address] [place], [place] [address]Dr. Omid Bowden EGFR-NON AF AUSTRALIAN 39 mL/min/1.73m2 Critically low >=60 [facility] Comment on above: Performed By: #### B MP ####[facility] [address] [place], [place] [address]Dr. Omid Bowden Glucose [Mass/Vol] 220 mg/dL Critically high 74-106 [facility] Comment on above: Performed By: #### B MP ####[facility] [address] [place], [place] [address]DrMedardo Bowden Potassium [Moles/Vol] 3.2 mmol/L Critically low 3.5-5.1 [facility] Comment on above: Performed By: #### B MP ####[facility] [address] [place], [place] [address]Dr. Omid Bowden Sodium [Moles/Vol] 137 mmol/L Normal 136-145 [facility] Comment on above: Performed By: #### B MP ####[facility] [address] [place], [place] [address]DrMedardo Bowden Urea nitrogen [Mass/Vol] 31.0 mg/dL Critically high 7.0-18.0 [facility] Comment on above: Performed By: #### B MP ####[facility] [address] [place], [place] [address]Sx. Omid Bowden Urea nitrogen/Creatinine [Mass ratio] 23.5 mg/mg Normal [facility] Comment on above: Performed By: #### B MP ####[facility] [address] [place], [place] [address]Za. Omid Bowden ECHOCARDIO M/2D COMPLETEon 0 04-12-2022 ECHOCARDIO M/2D COMPLETE Patient: HARMAN MCLEOD Exam Date: 04/12/2022 : 1940 Gender:F Ordering : [facility] Admission #: [id number] Family : Order #: [id number] CLICK HERE TO VIEW EXAM ECHOCARDIOGRAM REPORT [...] Keyes M.D. on 04/12/2022 at 19:15 Normal [facility] PROF CHEM 8 (BAS METB)on Anion gap [Moles/Vol] 12.4 mmol/L Normal [facility] Comment on above: Performed By: #### B MP ####[facility] [address] [address]Dr. Omid Bodwen Calcium [Mass/Vol] 9.1 mg/dL Normal 8.5-10.1 [facility] Comment on above: Performed By: #### B MP ####[facility] [address] [address]Dr. Omid Bowden Chloride [Moles/Vol] 100 mmol/L Normal 98-107 [facility] Comment on above: Performed By: #### B MP ####[facility] [address] [id number]. Omid Bowden CO2 [Moles/Vol] 33.0 mmol/L Critically high 21.0-32.0 [facility] Comment on above: Performed By: #### B MP ####[facility] [address] [id number]. Omid Bowden Creatinine [Mass/Vol] 1.15 mg/dL Critically high 0.55-1.02 [facility] Comment on above: Performed By: #### B MP ####[facility] [address] [id number]. Omid Bowden EGFR-AF AUSTRALIAN 55 mL/min/1.73m2 Critically low >=60 [facility] Comment on above: Performed By: #### B MP ####[facility] [id number] [id number]. Omid Bowden EGFR-NON AF AUSTRALIAN 46 mL/min/1.73m2 Critically low >=60 [facility] Comment on above: Performed By: #### B MP ####[facility] [address] [place] [address]Dr. Omid Bowden Glucose [Mass/Vol] 167 mg/dL Critically high 74-106 [facility] Comment on above: Performed By: #### B MP ####[facility] [address] [place] [address]Dr. Omid Bowden Potassium [Moles/Vol] 3.4 mmol/L Critically low 3.5-5.1 [facility] Comment on above: Performed By: #### B MP ####[facility] [address] [place] [address]Dr. Omid Bowden Sodium [Moles/Vol] 142 mmol/L Normal 136-145 [facility] Comment on above: Performed By: #### B MP ####[facility] [address] [place] [address]Dr. Omid Bowden Urea nitrogen [Mass/Vol] 23.0 mg/dL Critically high 7.0-18.0 [facility] Comment on above: Performed By: #### B MP ####[facility] [address] [place] [address]Dr. Omid Bowden Urea nitrogen/Creatinine [Mass ratio] 20.0 mg/mg Normal [facility] Comment on above: Performed By: #### B MP ####[facility] [address] [place], [place] [address]Dr. Omid Bowden SYMPTOMATIC COVID-19 ANTIGEN on 03-16-2022 EUA Statement SEE BELOW Normal [facility] Comment on above: Result Comment: This [...] Performed By: #### L IPID, BMP #### [facility] [address] [place] [address] Dr. Omid Bowden SARS-CoV-2 (COVID-19) RNA MARII+probe Ql (Unsp spec) Positive Critically abnormal NEGATIVE [facility] Comment on above: Performed By: #### L IPID, BMP #### [facility] [address] [place] [address] Dr. Omid Bowden HEMOGLOBINon 03-15-2022 Hemoglobin (Bld) [Mass/Vol] 12.3 g/dL Normal 12.0-16.0 [facility] Comment on above: Performed By: #### H GB #### [facility] [address] [place] [address] Dr. Omid Bowden BNPon 02-15-2022 Natriuretic peptide B (Bld) [Mass/Vol] 598.0 pg/mL Normal <=1,800.0 [facility] Comment on above: Performed By: #### L IPID, BMP #### [facility] [address] [place] [address] Dr. Omid Bowden PROF CHEM 8 (BAS METB)on Anion gap [Moles/Vol] 11.9 mmol/L Normal [facility] Comment on above: Performed By: #### L IPID, BMP #### [facility] [address] [place] [address] Dr. Omid Bowden Calcium [Mass/Vol] 9.1 mg/dL Normal 8.5-10.1 [facility] Comment on above: Performed By: #### L IPID, BMP #### [facility] [address] [place] [address] Dr. Omid Bowden Chloride [Moles/Vol] 98 mmol/L Normal 98-107 [facility] Comment on above: Performed By: #### L IPID, BMP #### [facility] [address] [address] [address] Omid Bowden CO2 [Moles/Vol] 33.2 mmol/L Critically high 21.0-32.0 [facility] Comment on above: Performed By: #### L IPID, BMP #### [facility] [address] [address] [address] Omid Bowden Creatinine [Mass/Vol] 1.28 mg/dL Critically high 0.55-1.02 [facility] Comment on above: Performed By: #### L IPID, BMP #### [facility] [address] [address] [address] Omid Bowden EGFR-AF AUSTRALIAN 49 mL/min/1.73m2 Critically low >=60 [facility] Comment on above: Performed By: #### L IPID, BMP #### [facility] [address] [address] [address] Omid Bowden EGFR-NON AF AUSTRALIAN 40 mL/min/1.73m2 Critically low >=60 [facility] Comment on above: Performed By: #### L IPID, BMP #### [facility] [address] [address] [address] Omid Bowden Glucose [Mass/Vol] 182 mg/dL Critically high 74-106 [facility] Comment on above: Performed By: #### L IPID, BMP #### [facility] [address] [address] [address] Omid Bowden Potassium [Moles/Vol] 3.1 mmol/L Critically low 3.5-5.1 [facility] Comment on above: Performed By: #### L IPID, BMP #### [facility] [address] [address] [address] Omid Bowden Sodium [Moles/Vol] 140 mmol/L Normal 136-145 [facility] Comment on above: Performed By: #### L IPID, BMP #### [facility] [address] [address] [address] Omid Bowden Urea nitrogen [Mass/Vol] 30.0 mg/dL Critically high 7.0-18.0 [facility] Comment on above: Performed By: #### L IPID, BMP #### [facility] [address] [place], [place] [address] Dr. Omid Bowden Urea nitrogen/Creatinine [Mass ratio] 23.4 mg/mg Normal [facility] Comment on above: Performed By: #### L IPID, BMP #### [facility] [address] [place], [place] [address] Dr. Omid Bowden XR CHEST 2 Von [...] ALFONSO GEORGE Date: 2022-02-09 11:53 Normal [facility] No Panel Informationon 12-13 [facility] POCT Glucoseon 12-13-2021 Glucose [Mass/Vol] 196 mg/dL High 74 - 100 mg/dL [facility] Interpretation and review of laboratory results Abnormal [facility] POTASSIUM (POC)on 12-13-2021 Potassium [Moles/Vol] 3.7 mmol/L 3.5 - 4.5 mmol/L [facility] TYPE AND SCREENon 12-10-2021 ABO/Rh Positive [facility] Arm Band Number [id number] [facility] lt Expiration Date 12/16/2021,2359 [employer] EKG 12 leadOrdered By: Dennis Garcia on 12-07-2021 Atrial Rate 66 BPM [facility] Work Phone: P Hollywood 67 degrees [facility] Work Phone: P-R Interval 126 ms [facility] Work Phone: Q-T Interval 466 ms [facility] Work Phone: QRS Duration 150 ms [facility] Work Phone: QTc Calculation (Bazett) 488 ms [facility] Work Phone: R [place] 32 degrees [facility] Work Phone: T [place] 161 degrees [facility] Work Phone: Ventricular Rate 66 BPM [facility] Work Phone: [facility] Work Phone: EKG 12 leadon 12-07-2021 [...] wave inversion now evident in Inferior leads [facility] Work Phone: CBC auto differentialon 11-10 Absolute Eos # 0.13 [facility] th Absolute Immature Granulocyte 0.12 [facility] Absolute Lymph # 3.18 [facility] alth [facility] Irwin # 1.22 High [facility] lt Basophils (Bld) [#/Vol] 0.05 10*3/uL [facility] Basophils/100 WBC (Bld) 0 % 0 - 2 % [facility] Eosinophils/100 WBC (Bld) 1 % 1 - 4 % [facility] Hematocrit (Bld) [Volume fraction] 38.4 % 36.3 - 47.1 % [facility] Hemoglobin.gastrointes tinal spec 1 Ql (Stl) 12.2 g/dL 11.9 - 15.1 g/dL [facility] Immature granulocytes/100 WBC (Bld) 1 % High 0 [facility] Interpretation and review of laboratory results Abnormal [facility] Lymphocytes/100 WBC (Bld) 25 % 24 - 43 % [facility] MCH (RBC) [Entitic mass] 29.9 pg 25.2 - 33.5 pg [facility] MCHC (RBC) [Mass/Vol] 31.8 g/dL 28.4 - 34.8 g/dL [facility] MCV (RBC) [Entitic vol] 94.1 fL 82.6 - 102.9 fL [facility] Monocytes/100 WBC (Bld) 10 % 3 - 12 % [facility] NRBC Automated 0.0 0.0 per 100 WBC [facility] Platelet distribution width (Bld) [Ratio] 14.5 % High 11.8 - 14.4 % [facility] Platelet mean volume (Bld) [Entitic vol] 10.1 fL 8.1 - 13.5 fL [facility] Platelets (Bld) [#/Vol] 266 10*3/uL [facility] RBC (Bld) [#/Vol] 4.08 10*6/uL 3.95 - 5.1 1 m/uL [facility] RBC (Bld) [#/Vol] ANISOCYTOSIS PRESENT [facility] Segmented neutrophils/100 WBC (Bld) 63 % 36 - 65 % [facility] Segs [facility] 7.88 [facility] W[facility] (Bld) [#/Vol] 12.6 10*3/uL High [facility] Comprehensive Metabolic Pane l w/ Reflex to MGon 12-06-2021 Albumin [Mass/Vol] 3.7 g/dL 3.5 - 5.2 g/dL [facility] Albumin/Globulin [Mass ratio] 1.1 {ratio} [facility] ALP (Bld) [Catalytic activity/Vol] 93 U/L 35 - 104 U/L [facility] ALT [Catalytic activity/Vol] 12 U/L 5 - 33 U/L [facility] Anion gap [Moles/Vol] 14 mmol/L 9 - 17 mmol/L [facility] AST [Catalytic activity/Vol] 12 U/L <32 [facility] Bilirubin [Mass/Vol] 0.25 mg/dL Low 0.3 - 1 .2 mg/dL [facility] Calcium [Mass/Vol] 9.1 mg/dL 8.6 - 10. 4 mg/dL [facility] Chloride [Moles/Vol] 95 mmol/L Low 98 - 10 7 mmol/L [facility] CO2 [Moles/Vol] 30 mmol/L 20 - 31 mmol/L [facility] Creatinine [Mass/Vol] 1.07 mg/dL High 0.50 - 0.90 mg/dL [facility] Free PSA/Total PSA [Mass fraction] 7.2 g/dL 6.4 - 8.3 g/dL [facility] GFR 60 mL/min Low >60 [facility] GFR Non- 49 mL/min Low >60 [facility] GFR/1.73 sq M.predicted MDRD (S/P/Bld) [Vol rate/Area] [facility] Comment on above: Average GFR for 70 o r more years old: 75 mL/min/1.73sq m Chronic Kidney Disease: <60 mL/min/1.73sq m Kidney failure: <15 mL/min/1.73sq m eGFR calculated using average adult body mass. Additional eGFR calculator available at: http://www.Getyoo/CartMomo_crcl_2011.htm Glucose [Mass/Vol] 188 mg/dL High 70 - 99 mg/dL [facility] Interpretation and review of laboratory results Abnormal [facility] Potassium [Moles/Vol] 3.3 mmol/L Low 3.7 - 5.3 mmol/L [facility] Sodium [Moles/Vol] 139 mmol/L 135 - 144 mmol/L [facility] Urea nitrogen (BldV) [Mass/Vol] 22 mg/dL 8 - 23 mg/dL [facility] Magnesiumon 12-06-2021 Magnesium [Mass/Vol] 1.6 mg/dL 1.6 - 2 .6 mg/dL [facility] No Panel Informationon 12-06 No acute process. [facility] RIS CONSOLIDATED EXAMINATION: TWO XRAY [...] The osseous structures are without acute process. [facility] RIS CONSOLID[facility] Kael Freeman MD [...] without acute process. IMPRESSION: No acute process. [facility] Phone: Radiology Study observation (narrative) [facility] Phone: No Panel InformationOrdered By: Kael Freeman on 12-06-2021 [facility] Phone: Creatinine W/GFR Point of Ca reOrdered By: Kin Abarca on 06-15-2021 Creatinine [Mass/Vol] 0.89 mg/dL 0.51 - 1.19 mg/dL [facility] Phone: GFR Non- >60 >60 mL/min [facility] Phone: GFR/1.73 sq M.predicted MDRD (S/P/Bld) [Vol rate/Area] mL/min/{1.73_m2} >60 mL/min [facility] Phone: GFR/1.73 sq M.predicted MDRD (S/P/Bld) [Vol rate/Area] [facility] Phone: Comment on above: Average GFR for 70 o r more years old: 75 mL/min/1.73sq m Chronic Kidney Disease: <60 mL/min/1.73sq m Kidney failure: <15 mL/min/1.73sq m eGFR calculated using average adult body mass. Additional eGFR calculator available at: http://www.SenseHere Technology.com/multiple_crcl_2012.htm No Panel InformationOrdered By: Kin Abarca on 06-15-2021 [facility] Phone: POC Glucose FingerstickOrder ed By: Kin Abarca on 06-15-2021 Glucose [Mass/Vol] 163 mg/dL High 65 - 105 mg/dL [facility] Phone: Interpretation and review of laboratory results Abnormal [facility] Phone: [facility] Phone: POCT GlucoseOrdered By: Kin Abarca on 06-15-2021 Glucose [Mass/Vol] 186 mg/dL High 74 - 100 mg/dL [facility] Phone: Interpretation and review of laboratory results Abnormal [facility] Phone: POTASSIUM (POC)Ordered By: Yuriy Abarca on 06-15-2021 Potassium [Moles/Vol] 4.5 mmol/L 3.5 - 4.5 mmol/L [facility] Phone: EKG 12 leadOrdered By: Antoni Burks on 05-13-2021 Atrial Rate 67 BPM [facility] Phone: P Hollywood 58 degrees [facility] Phone: P-R Interval 130 ms [facility] Phone: Q-T Interval 504 ms [facility] Phone: QRS Duration 144 ms [facility] Phone: QTc Calculation (Bazett) 532 ms [facility] Phone: R [place] 20 degrees [facility] Phone: T [place] 117 degrees [facility] Phone: Ventricular Rate 67 BPM [facility] [facility] Work Phone: Sinus rhythm with Premature atrial complexes Left bundle branch block Abnormal ECG No previous ECGs available [facility] Phone: Virgilio, Mhpn Incoming E kg Results From [employer] - 05/13/2021 1:30 PM EDT Sinus rhythm with Premature atrial complexes Left bundle branch block Abnormal ECG No previous ECGs available [facility] Phone: [facility] Phone: Basic Metabolic Panel w/ Ref alexis to MGOrdered By: Latonia Burks on 05-12-2021 Anion gap [Moles/Vol] 13 mmol/L 9 - 17 mmol/L [facility] Phone: Calcium [Mass/Vol] 9.4 mg/dL 8.6 - 10. 4 mg/dL [facility] Phone: Chloride [Moles/Vol] 102 mmol/L 98 - 10 7 mmol/L [facility] Phone: CO2 [Moles/Vol] 28 mmol/L 20 - 31 mmol/L [facility] Phone: Creatinine [Mass/Vol] 0.94 mg/dL High 0.50 - 0.90 mg/dL [facility] Phone: GFR >60 >60 mL/min [facility] Phone: GFR Non- 58 mL/min Low >60 [facility] Phone: GFR/1.73 sq M.predicted MDRD (S/P/Bld) [Vol rate/Area] [facility] Phone: Comment on above: Average GFR for 70 o r more years old: 75 mL/min/1.73sq m Chronic Kidney Disease: <60 mL/min/1.73sq m Kidney failure: <15 mL/min/1.73sq m eGFR calculated using average adult body mass. Additional eGFR calculator available at: http://www.S[employer]Here Technology.AmideBio/multiple_crcl_2012.htm GFR/1.73 sq M.predicted MDRD (S/P/Bld) [Vol rate/Area] NOT REPORTED [facility] Phone: Glucose [Mass/Vol] 119 mg/dL High 70 - 99 mg/dL [facility] Phone: Interpretation and review of laboratory results Abnormal [facility] Phone: Potassium [Moles/Vol] 4.0 mmol/L 3.7 - 5.3 mmol/L [facility] Phone: Sodium [Moles/Vol] 143 mmol/L 135 - 144 mmol/L [facility] Work Phone: Urea nitrogen (BldV) [Mass/Vol] 18 mg/dL 8 - 23 mg/dL [facility] Work Phone: Urea nitrogen/Creatinine (Bld) [Mass ratio] NOT REPORTED [facility] Work Phone: [facility] Work Phone: CBC auto differentialOrdered By: Latonia Burks on 05-12-2021 [facility] Eos # 0.26 [facility] Work Phone: Absolute Immature Granulocyte 0.04 [facility] Work Phone: Absolute Lymph # 3.26 [facility] Work Phone: Absolute Irwin # 0.84 [facility] Work Phone: Basophils (Bld) [#/Vol] 0.05 10*3/uL [facility] Work Phone: Basophils/100 WBC (Bld) 1 % 0 - 2 % [facility] Phone: Differential Type NOT REPORTED [facility] Phone: Eosinophils/100 WBC (Bld) 3 % 1 - 4 % [facility] Work Phone: Hematocrit (Bld) [Volume fraction] 36.9 % 36.3 - 47.1 % [facility] Phone: Hemoglobin.gastrointes tinal spec 1 Ql (Stl) 11.2 g/dL Low 11.9 - 15.1 g/dL [facility] Phone: Immature granulocytes/100 WBC (Bld) 0 % 0 [facility] Work Phone: Interpretation and review of laboratory results Abnormal [facility] Phone: Lymphocytes/100 WBC (Bld) 32 % 24 - 43 % [facility] Phone: MCH (RBC) [Entitic mass] 28.3 pg 25.2 - 33.5 pg [facility] Phone: MCHC (RBC) [Mass/Vol] 30.4 g/dL 28.4 - 34.8 g/dL [facility] Phone: MCV (RBC) [Entitic vol] 93.2 fL 82.6 - 102.9 fL [facility] Phone: Monocytes/100 WBC (Bld) 8 % 3 - 12 % [facility] Phone: NRBC Automated 0.0 0.0 per 100 WBC [facility] Phone: Platelet distribution width (Bld) [Ratio] 13.8 % 11.8 - 14.4 % [facility] Phone: Platelet Estimate NOT REPORTED [facility] Phone: Platelet mean volume (Bld) [Entitic vol] 9.5 fL 8.1 - 13.5 fL [facility] Phone: Platelets (Bld) [#/Vol] 310 10*3/uL [facility] Phone: RBC (Bld) [#/Vol] 3.96 10*6/uL 3.95 - 5.1 1 m/uL [facility] Phone: RBC (Bld) [#/Vol] NOT REPORTED [facility] Phone: Segmented neutrophils/100 WBC (Bld) 56 % 36 - 65 % [facility] Phone: Segs Absolute 5.70 [employer] Work Phone: WBC (Bld) [#/Vol] 10.2 10*3/uL [facility] Phone: WBC (Bld) [#/Vol] NOT REPORTED [facility] Phone: [facility] Phone: XR CHEST (2 VW)Ordered By: Joanie Burks on 05-12-2021 Senescent changes compatible with the age of the patient. No evidence of acute cardiopulmonary process. [facility] Phone: EXAMINATION: TWO XRA Y VIEWS OF [...] spine and visualized portions of the shoulders. [facility] Phone: Virgilio, Mhpn Incoming Radiant Results From [employer] - 05/12/2021 2:48 PM EDT EXAMINATION: TWO [...] patient. No evidence of acute cardiopulmonary process. [facility] Phone: [facility] Phone: Cardiovascular Lab Reporton 08-21-2020 Cardiovascular Lab Report [facility] Patient Name: Lenin Mcleodie [facility] Berna MR #: [id number] Department of Physician: Jose Maria Keyes M.D. Division of Service Date: 08/20/2020 Cardiology Birthdate: 1940 Adult Cardiovascular Room #: [address] [place] [place], [place] [address] Cardiovascular Laboratory Report INDICATION: The patient is [...] signed informed consent. She was brought to sugar laboratory assistant in a fasting state. The procedure was performed under conscious sedation. A transesophageal echocardiogram was performed by Dr. Marisol Khoury at baseline. Please refer to his dictation for details. The appendage measured a maximum of 16 mm in terms of ostial width. Using ultrasound guidance and micropuncture technique, access was obtained in the right common femoral vein and a 6-Nicaraguan x 11 cm sheath was placed preclosure where the 6-Nicaraguan ProGlide device was performed followed by advancement [...] was exchanged over that wire to the 14-Nicaraguan Watchman access sheath, which was advanced to the left atrial cavity with no issues. The 6-Nicaraguan angled pigtail catheter was advanced over the [...] Trans: (more content not included)... Normal The [facility] TYPE AND CROSSMATCHon 2019 ABO INTERPRETATION A Normal [facility] Comment on above: Performed By: #### [id number] #### [facility] [address] [place] [address], [facility] RH INTERPRETATION Positive Normal The [facility] Comment on above: Performed By: #### [id number] #### [facility] [address] [place] [address], [facility] Vital Signs Date Time Vital Sign Value Performing Clinician Facility 08-29-2024 10:01-0500 Body height 152.4 cm Peyman Brown DPM Work Phone: [facility] 08-29-2024 10:01-0500 Body mass index (BMI) [Ratio] 28.32 kg/m2 Peyman Brown DPM Work Phone: [facility] 08-29-2024 10:01-0500 Body weight 65.77 kg Peyman Brown DPM Work Phone: [facility] 08-29-2024 10:01-0500 Respiratory rate 16 /min Peyman Brown DPM Work Phone: [facility] 06-20-2024 10:140400 Body height 152.4 cm Peyman Brown DPM Work Phone: [facility] 06-20-2024 10:14-0400 Body mass index (BMI) [Ratio] 28.32 kg/m2 Peyman Brown DPM Work Phone: [facility] 06-20-2024 10:14-0400 Body weight 65.77 kg Peyman Brown DPM Work Phone: [facility] 06-20-2024 10:14-0400 Respiratory rate 18 /min Peyman Brown DPM Work Phone: [facility] 05-01-2024 10:180400 Body height 149.86 cm MD Mateus Perry Work Phone: [facility] 05-01-2024 10:18-0400 Body mass index (BMI) [Ratio] 30.2 kg/m2 MD Mateus Perry Work Phone: [facility] 05-01-2024 10:180400 Body temperature 97.8 [degF] MD Mateus Perry Work Phone: [facility] 05-01-2024 10:180400 Body weight 68.03 kg MD Mateus Perry Work Phone: [facility] 05-01-2024 10:18-0400 Diastolic blood pressure 72 mm[Hg] MD Mateus Perry Work Phone: [facility] 05-01-2024 10:18-0400 Heart rate 80 /min MD Mateus Perry Work Phone: [facility] 05-01-2024 10:18-0400 Respiratory rate 16 /min MD Mateus Perry Work Phone: [facility] 05-01-2024 10:18-0400 SaO2% (BldA) [Mass fraction] 98 % MD Mateus Perry Work Phone: [facility] 05-01-2024 10:18-0400 Systolic blood pressure 118 mm[Hg] MD Mateus Perry Work Phone: [facility] 04-24-2024 11:13-0400 Body height 149.86 cm MD Mateus Perry Work Phone: [facility] 04-24-2024 11:130400 Body mass index (BMI) [Ratio] 36.3 kg/m2 MD Mateus Perry Work Phone: [facility] 04-24-2024 11:13-0400 Body weight 81.64 kg MD Mateus Perry Work Phone: [facility] 04-24-2024 11:06-0400 Body temperature 98.8 [degF] MD Mateus Perry Work Phone: [facility] 04-24-2024 11:06-0400 Diastolic blood pressure 75 mm[Hg] MD Mateus Perry Work Phone: [facility] 04-24-2024 11:06-0400 Heart rate 97 /min MD Mateus Perry Work Phone: [facility] 04-24-2024 11:06-0400 Respiratory rate 20 /min MD Mateus Perry Work Phone: [facility] 04-24-2024 11:06-0400 Systolic blood pressure 118 mm[Hg] MD Mateus Perry Work Phone: [facility] 04-10-2024 10:30-0400 Body height 149.86 cm MD Mateus Perry Work Phone: [facility] 04-10-2024 10:30-0400 Body mass index (BMI) [Ratio] 36.3 kg/m2 MD Mateus Perry Work Phone: [facility] 04-10-2024 10:30-0400 Body weight 81.64 kg MD Mateus Perry Work Phone: [facility] 03-26-2024 09:51-0400 Body height 149.86 cm MD Mateus Perry Work Phone: [facility] 03-26-2024 09:51-0400 Body mass index (BMI) [Ratio] 36.3 kg/m2 MD Mateus Perry Work Phone: [facility] 03-26-2024 09:51-0400 Body weight 81.64 kg MD Mateus Perry Work Phone: [facility] 03-26-2024 09:36-0400 Body temperature 97.3 [degF] MD Mateus Perry Work Phone: [facility] 03-26-2024 09:36-0400 Diastolic blood pressure 61 mm[Hg] MD Mateus Perry Work Phone: [facility] 03-26-2024 09:36-0400 Heart rate 86 /min MD Mateus Perry Work Phone: [facility] 03-26-2024 09:36-0400 Respiratory rate 18 /min MD Mateus Perry Work Phone: [facility] 03-26-2024 09:36-0400 Systolic blood pressure 128 mm[Hg] MD Mateus Perry Work Phone: [facility] 06-20-2023 15:29-0400 Body height 154.9 cm Winnie Ramirez PA-C Work Phone: [facility] 06-20-2023 15:29-0400 Body temperature 97.39 [degF] Winnie Ramirez PA-C Work Phone: [facility] 06-20-2023 15:29-0400 Body weight 84.64 kg Winnie Ramirez PA-C Work Phone: [facility] 06-20-2023 15:29-0400 Diastolic blood pressure 55 mm[Hg] Winnie Ramirez PA-C Work Phone: [facility] 06-20-2023 15:29-0400 Heart rate 72 /min Winnie Ramirez PA-C Work Phone: [facility] 06-20-2023 15:29-0400 Respiratory rate 16 /min Winnie Ramirez PA-C Work Phone: [facility] 06-20-2023 15:29-0400 SaO2% (BldA) [Mass fraction] 96 % Winnie Ramirez PA-C Work Phone: [facility] 06-20-2023 15:29-0400 Systolic blood pressure 138 mm[Hg] Winnie Ramirez PA-C Work Phone: [facility] 06-01-2023 08:45-0400 Body height 154.94 cm Christiano Gonzales Other [facility] Other 06-01-2023 08:45-0400 Body mass index (BMI) [Ratio] 34.57 kg/m2 Christiano Janet Other [facility] Other 06-01-2023 08:45-0400 Body temperature 97.8 [degF] Christiano Janet Other [facility] Other 06-01-2023 08:45-0400 Body weight 83.01 kg Christiano Janet Other [facility] Other 06-01-2023 08:45-0400 Diastolic blood pressure 72 mm[Hg] Christiano Gonzalse Other [facility] Other 06-01-2023 08:45-0400 SaO2% (BldA) [Mass fraction] 93 % Christiano Janet Other [facility] Other 06-01-2023 08:45-0400 Systolic blood pressure 130 mm[Hg] Christiano Gonzales Other [facility] Other 03-09-2023 08:45-0400 Body height 154.94 cm Millie Storm Other [facility] Other 03-09-2023 08:45-0400 Body mass index (BMI) [Ratio] 34.57 kg/m2 Millie Storm Other [facility] Other 03-09-2023 08:45-0400 Body temperature 96.8 [degF] Millie Storm Other [facility] Other 03-09-2023 08:45-0400 Body weight 83.01 kg Millie Storm Other [facility] Other 03-09-2023 08:45-0400 Diastolic blood pressure 56 mm[Hg] Millie Storm Other [facility] Other 03-09-2023 08:45-0400 SaO2% (BldA) [Mass fraction] 97 % Millie [facility] Other 03-09-2023 08:45-0400 Systolic blood pressure 118 mm[Hg] Millie [facility] Other 02-14-2023 10:19-0400 Body height 154.9 cm Wallace Stone MD Work Phone: [facility] 02-14-2023 10:19-0400 Body temperature 97.39 [degF] Wallace Stone MD Work Phone: [facility] 02-14-2023 10:19-0400 Body weight 84.46 kg Wallace Stone MD Work Phone: [facility] 02-14-2023 10:19-0400 Diastolic blood pressure 90 mm[Hg] Wallace Stone MD Work Phone: [facility] 02-14-2023 10:19-0400 Heart rate 102 /min Wallace Stone MD Work Phone: [facility] 02-14-2023 10:19-0400 Respiratory rate 16 /min Wallace Stone MD Work Phone: [facility] 02-14-2023 10:19-0400 SaO2% (BldA) [Mass fraction] 95 % Wallace Stone MD Work Phone: [facility] 02-14-2023 10:19-0400 Systolic blood pressure 151 mm[Hg] Wallace Stone MD Work Phone: [facility] 12-07-2022 14:00-0400 Body height 154.94 cm Millie Storm [facility] Other 12-07-2022 14:00-0400 Body mass index (BMI) [Ratio] 35.71 kg/m2 Millie Storm [facility] Other 12-07-2022 14:00-0400 Body temperature 97.6 [degF] Millie Storm [facility] Other 12-07-2022 14:00-0400 Body weight 85.73 kg Millie Storm [facility] Other 12-07-2022 14:00-0400 Diastolic blood pressure 68 mm[Hg] Millie Storm [facility] Other 12-07-2022 14:00-0400 SaO2% (BldA) [Mass fraction] 93 % Millie Storm [facility] Other 12-07-2022 14:00-0400 Systolic blood pressure 116 mm[Hg] Millie [facility] Other 11-29-2022 11:53-0400 Diastolic blood pressure 54 mm[Hg] MD Mateus Perry Work Phone: [facility] 11-29-2022 11:53-0400 Heart rate 67 /min MD Mateus Perry Work Phone: [facility] 11-29-2022 11:53-0400 Respiratory rate 16 /min MD Mateus Perry Work Phone: [facility] 11-29-2022 11:53-0400 SaO2% (BldA) [Mass fraction] 94 % MD Mateus Perry Work Phone: [facility] 11-29-2022 11:53-0400 Systolic blood pressure 141 mm[Hg] MD Mateus Perry Work Phone: [facility] 11-29-2022 09:13-0400 Body height 154.94 cm MD Mateus Perry Work Phone: [facility] 11-29-2022 09:13-0400 Body weight 81.64 kg MD Mateus Perry Work Phone: [facility] 11-23-2022 11:00-0400 Body height 154.94 cm Christiano Gonzales Other [facility] [employer] Other 11-23-2022 11:00-0400 Body temperature 97.8 [degF] Christiano Gonzales [facility] Other 11-23-2022 11:00-0400 Diastolic blood pressure 62 mm[Hg] Christiano Gonzales Other [facility] Other 11-23-2022 11:00-0400 SaO2% (BldA) [Mass fraction] 96 % Christiano Gonzales [facility] Other 11-23-2022 11:00-0400 Systolic blood pressure 110 mm[Hg] Christiano Gonzales [facility] Other 11-09-2022 13:44-0500 Body height 154.9 cm Wallace Stone MD Work Phone: [facility] 11-09-2022 13:44-0500 Body temperature 97.11 [degF] Wallace Stone MD Work Phone: [facility] 11-09-2022 13:44-0500 Body weight 84.73 kg Wallace Stone MD Work Phone: [facility] 11-09-2022 13:44-0500 Diastolic blood pressure 72 mm[Hg] Wallace Stone MD Work Phone: [facility] 11-09-2022 13:44-0500 Heart rate 66 /min Wallace Stone MD Work Phone: [facility] 11-09-2022 13:44-0500 Respiratory rate 18 /min Wallace Stone MD Work Phone: [facility] 11-09-2022 13:44-0500 SaO2% (BldA) [Mass fraction] 100 % Wallace Stone MD Work Phone: [facility] 11-09-2022 13:44-0500 Systolic blood pressure 142 mm[Hg] Wallace Stone MD Work Phone: [facility] 09-22-2022 11:24-0500 Body height 154.9 cm Wallace Stone MD Work Phone: [facility] 09-22-2022 11:24-0500 Body temperature 97.81 [degF] Wallace Stone MD Work Phone: [facility] 09-22-2022 11:24-0500 Body weight 84.82 kg Wallace Stone MD Work Phone: [facility] 09-22-2022 11:24-0500 Diastolic blood pressure 64 mm[Hg] Wallace Stone MD Work Phone: [facility] 09-22-2022 11:24-0500 Heart rate 70 /min Wallace Stone MD Work Phone: [facility] 09-22-2022 11:24-0500 Respiratory rate 16 /min Wallace Stone MD Work Phone: [facility] 09-22-2022 11:24-0500 SaO2% (BldA) [Mass fraction] 94 % Wallace Stone MD Work Phone: [facility] 09-22-2022 11:24-0500 Systolic blood pressure 137 mm[Hg] Wallace Stone MD Work Phone: [facility] 09-09-2022 15:06-0500 Blood Pressure Location Iliana DORANL [facility] [place] 09-09-2022 15:06-0500 Diastolic blood pressure 68 mm[Hg] Iliana NILL [facility] 09-09-2022 15:06-0500 Heart rate 68 /min Iliana NILL [facility] 09-09-2022 15:06-0500 Respiratory rate 16 /min Iliana DORANL [facility] 09-09-2022 15:06-0500 Systolic blood pressure 130 mm[Hg] Iliana NILL [facility] 06-28-2022 12:00-0400 SaO2% (BldA) [Mass fraction] 95 % Emma Plunkett MD Work Phone: [facility] 06-28-2022 11:50-0400 Body temperature 97.3 [degF] Emma Plunkett MD Work Phone: [facility] 06-28-2022 11:50-0400 Diastolic blood pressure 50 mm[Hg] Emma Plunkett MD Work Phone: [facility] 06-28-2022 11:50-0400 Heart rate 69 /min Emma Plunkett MD Work Phone: [facility] 06-28-2022 11:50-0400 Respiratory rate 16 /min Emma Plunkett MD Work Phone: [facility] 06-28-2022 11:50-0400 Systolic blood pressure 115 mm[Hg] Emma Plunkett MD Work Phone: [facility] 06-28-2022 07:36-0400 Body height 154.9 cm Emma Plunkett MD Work Phone: [facility] 06-28-2022 07:36-0400 Body mass index (BMI) [Ratio] 34.58 kg/m2 Emma Plunkett MD Work Phone: [facility] 06-28-2022 07:36-0400 Body weight 83.01 kg Emma Plunkett MD Work Phone: [facility] 12-13-2021 15:45-0400 Body temperature 97 [degF] Emma Plunkett MD Work Phone: [facility] [employer] 12-13-2021 15:45-0400 Diastolic blood pressure 96 mm[Hg] Emma Plunkett MD Work Phone: [facility] [employer] 12-13-2021 15:45-0400 Heart rate 65 /min Emma Plunkett MD Work Phone: [facility] 12-13-2021 15:45-0400 Respiratory rate 14 /min Emma Plunkett MD Work Phone: [facility] [employer] 12-13-2021 15:45-0400 SaO2% (BldA) [Mass fraction] 94 % Emma Plunkett MD Work Phone: [facility] [employer] 12-13-2021 15:45-0400 Systolic blood pressure 113 mm[Hg] Emma Plunkett MD Work Phone: [facility] [employer] 12-13-2021 09:46-0400 Body height 154.9 cm Emma Plunkett MD Work Phone: [facility] [employer] 12-13-2021 09:46-0400 Body mass index (BMI) [Ratio] 36.09 kg/m2 Emma Plunkett MD Work Phone: [facility] 12-13-2021 09:46-0400 Body weight 86.64 kg Emma Plunkett MD Work Phone: [facility] 12-06-2021 14:46-0400 Body height 154.[address] 12-06-2021 14:46-0400 Body mass index (BMI) [Ratio] 36.09 kg/m2 [address] 12-06-2021 14:46-0400 Body temperature 96.4 [degF] [address] 12-06-2021 14:46-0400 Body weight 86.[address] 12-06-2021 14:46-0400 Diastolic blood pressure 67 mm[Hg] [address] 12-06-2021 14:46-0400 Heart rate 62 /min [address] 12-06-2021 14:46-0400 Respiratory rate 20 /min [address] 12-06-2021 14:46-0400 SaO2% (BldA) [Mass fraction] 97 % [address] 12-06-2021 14:46-0400 Systolic blood pressure 153 mm[Hg] [address] 06-15-2021 10:14-0400 Body temperature 97.81 [degF] Kin Abarca MD Work Phone: [facility] [employer] Work Phone: 06-15-2021 10:14-0400 Diastolic blood pressure 58 mm[Hg] Kin Abarca MD Work Phone: [facility] [employer] Work Phone: 06-15-2021 10:14-0400 Heart rate 61 /min Kin Abarca MD Work Phone: [employer] Work Phone: 06-15-2021 10:14-0400 Respiratory rate 14 /min Kin Abarca MD Work Phone: [employer] Work Phone: 06-15-2021 10:14-0400 SaO2% (BldA) [Mass fraction] 96 % Kin Abarca MD Work Phone: [employer] Work Phone: 06-15-2021 10:14-0400 Systolic blood pressure 113 mm[Hg] Kin Abarca MD Work Phone: [employer] Work Phone: 06-15-2021 08:24-0400 Body height 154.9 cm Kin Abarca MD Work Phone: [employer] Work Phone: 06-15-2021 08:24-0400 Body mass index (BMI) [Ratio] 34.96 kg/m2 Kin Abarca MD Work Phone: [employer] Work Phone: 06-15-2021 08:24-0400 Body weight 83.92 kg Kin Abarca MD Work Phone: [facility] Phone: 05-12-2021 12:53-0400 Body height 154.9 cm [facility] Phone: 05-12-2021 12:53-0400 Body mass index (BMI) [Ratio] 35.52 kg/m2 [facility] [employer] Work Phone: 05-12-2021 12:53-0400 Body temperature 96.8 [degF] [facility] Phone: 05-12-2021 12:53-0400 Body weight 85.28 kg [facility] 1 [facility] Phone: 05-12-2021 12:53-0400 Diastolic blood pressure 66 mm[Hg] [facility] [employer] Work Phone: 05-12-2021 12:53-0400 Heart rate 57 /min [facility] 1 [facility] Phone: 05-12-2021 12:53-0400 Respiratory rate 18 /min [facility] 1 [employer] Work Phone: 05-12-2021 12:53-0400 SaO2% (BldA) [Mass fraction] 96 % [facility] [employer] Work Phone: 05-12-2021 12:53-0400 Systolic blood pressure 150 mm[Hg] [facility] 1 [employer] Work Phone: Encounters Encounter Date Encounter Type Care Provider Facility Start: 09-02-2024 ambulatory [facility] Start: 08-29-2024 End: 08-29-2024 [employer] Peyman Hensley DPM Work Phone: [facility] Start: 08-29-2024 End: 08-29-2024 [employer] Peyman Hensley DPM Work Phone: [facility] Start: 08-29-2024 Encounter for preprocedural cardiovascular examination [facility] Start: 08-29-2024 End: 08-29-2024 Office outpatient visit 15 minutes Peyman Hensley DPM Work Phone: [facility] Comment on above: 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 (CMS/HCC) (Primary Dx); Diabetes mellitus due to underlying condition with diabetic polyneuropathy, 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 intermediate accountant insulin use (CMS/HCC); Pain due to onychomycosis of toenails of both feet; Venous insufficiency; Neoplasm of uncertain behavior of skin Start: 08-29-2024 End: 08-29-2024 ambulatory PEYMAN HENSLEY Not Available Start: 08-27-2024 End: 08-27-2024 ambulatory [facility] Start: 08-12-2024 ambulatory [facility] Start: 08-12-2024 End: 08-12-2024 ambulatory [facility] Start: 07-17-2024 End: 07-17-2024 [facility] Start: 07-10-2024 ambulatory [facility] Start: 07-10-2024 End: 07-10-2024 ambulatory [facility] Start: 07-02-2024 End: 07-02-2024 ambulatory [facility] Start: 06-20-2024 End: 06-20-2024 Bamboo flowsheet [...] polyneuropathy, 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 senior care insulin use (CMS/HCC); Pain due to onychomycosis of toenails of both feet Start: 06-12-2024 End: 06-12-2024 ambulatory [facility] Start: 05-27-2024 End: 05-27-2024 ambulatory CHERYL FARIA [facility] Start: 05-01-2024 End: 05-01-2024 ambulatory MD Mateus Perry Work Phone: [facility] Work Phone: Start: 05-01-2024 End: 05-01-2024 Patient encounter procedure MD Mateus Perry Work Phone: [facility] Vascular Surgery Work Phone: Start: 04-24-2024 End: 04-24-2024 ambulatory MD Mateus Perry Work Phone: [facility] Work Phone: Start: 04-24-2024 End: 04-24-2024 Discharged Recurring MD Mateus Perry Work Phone: [facility] [place] Work Phone: Start: 04-09-2024 End: 04-09-2024 Patient encounter procedure MD Mateus Perry Work Phone: [facility]Ultrasound [facility] [place] Work Phone: Start: 04-09-2024 End: 04-09-2024 ambulatory MD Mateus Perry Work Phone: [facility] Work Phone: Start: 03-26-2024 Registered Recurring MD Yvonne Perry Work Phone: [facility] [place] Work Phone: Start: 06-20-2023 End: 06-20-2023 ambulatory WINNIE GUZMÁN Facility:[facility] Start: 06-20-2023 End: 06-20-2023 ambulatory Winnie Guzmán PA-C Work Phone: Hematology/Oncology Comment on above: 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, estrogen receptor positive (HCC) (Primary Dx); Stage 3a chronic kidney disease (HCC) Start: 06-20-2023 End: 06-20-2023 Patient encounter procedure Winnie Guzmán PA-C Work Phone: [facility] Start: 06-01-2023 End: 06-01-2023 ambulatory Christiano Gonzales [facility] Other Start: 06-01-2023 Office outpatient vi sit 15 minutes Christiano Gonzales [facility] Vascular Surgery Start: 04-06-2023 End: 04-07-2023 ambulatory MATEUS PERRY [facility] Start: 03-09-2023 End: 03-09-2023 ambulatory Millie [facility] Other Start: 03-09-2023 Patient encounter procedure Millie Emeterio [facility] Vascular Surgery Start: 03-06-2023 End: 03-06-2023 ambulatory EMMA GARZA V [facility] Start: 02-14-2023 End: 02-14-2023 ambulatory WALLACE STONE Facility:[facility] Start: 02-14-2023 End: 02-14-2023 ambulatory Wallace Stone MD Work Phone: Hematology/Oncology Comment on above: 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, estrogen receptor positive (HCC) (Primary Dx); Rash; Other eczema; Stage 3a chronic kidney disease (HCC) Start: 02-14-2023 End: 02-14-2023 Patient encounter procedure Wallace Stone MD Work Phone: [facility] Start: 01-19-2023 End: 01-19-[address] MATEUS PERRY . Facility: Start: 12-08-2022 End: 12-08-2022 ambulatory Millie Storm [facility] Other Start: 12-08-2022 Telephone encounter Millie Storm [facility] Start: 12-07-2022 End: 12-07-2022 ambulatory Millie Storm [facility] Other Start: 12-07-2022 Patient encounter procedure Millie Emeterio [facility] Vascular Surgery Start: 11-29-2022 End: 11-29-2022 Admission to same day surgery center MD Mateus Perry Work Phone: [facility]-Interventional Radiology Work Phone: Start: 11-29-2022 End: 11-29-2022 ambulatory MD Mateus Perry Work Phone: [facility] Work Phone: Start: 11-24-2022 End: 11-25-2022 ambulatory LATONIA BRUSH [facility] Start: 11-24-2022 End: 11-24-2022 Subsequent hospital visit by physician Mateus Perry MD Work Phone: [facility] Start: 11-23-2022 End: 11-23-2022 ambulatory Christiano Gonzales [facility] Other Start: 11-23-2022 Office outpatient ne w 60 minutes Christiano Gonzales [facility] Vascular Surgery Start: 11-22-2022 End: 11-23-2022 [...] encounter procedure Wallace Stone MD Work Phone: [facility] Start: 11-09-2022 Telephone encounter Wallace carolina MD [facility] Comment on above: Referral Information (Vascular Consult) Start: 11-08-2022 End: 11-09-2022 ambulatory Iliana R NILL Facility: [facility] Start: 11-08-2022 End: 11-08-2022 Patient encounter procedure Iliana R NILL General Surgery Nill/[facility] Start: 11-04-2022 End: 11-05-2022 ambulatory Iliana R NILL Facility:[facility] [place] Start: 11-04-2022 End: 11-04-2022 Patient encounter procedure Iliana GAGNON General Surgery [facility] [place] Start: 11-02-2022 End: 11-03-[address] MATEUS PERRY . Facility: Start: 10-25-2022 End: 10-26-2022 ambulatory Iliana GAGNON Facility:[facility] Start: 10-25-2022 End: 10-25-2022 Patient encounter procedure Iliana GAGNON General Surgery [facility] Start: 10-19-2022 End: 10-20-[address] ILIANA GAGNON . Facility: Start: 10-15-[address] ILIANA GAGNON . Facil ity:[facility] Start: 10-12-2022 Encounter for preprocedural laboratory examination [facility] Start: 10-11-2022 End: 10-12-2022 ambulatory [...] 09-09-2022 End: 09-10-2022 ambulatory Iliana GAGNON Facility: [place] Start: 09-09-2022 End: 09-09-2022 Patient encounter procedure [...] Start: 07-19-2022 End: 07-20-[address] MATEUS PRERY . Facility:[facility] Start: 06-28-2022 End: 06-28-2022 Subsequent hospital visit by physician Emma Garza MD Work Phone: [facility] Comment on above: Vaginal dysplasia Start: 06-22-2022 End: 06-23-2022 ambulatory SONALI MCKINNEY Facility:[facility] Start: 05-04-2022 ambulatory SONALI MCKINNEY Facility :[facility] Start: 04-12-2022 End: 04-13-2022 ambulatory SONALI OBRIENCKER Facility:[facility] Start: 03-17-2022 End: 03-17-[address] MATEUS PERRY . Facility:[facility] Start: 03-16-2022 End: 03-16-[address] MATEUS PERRY . Facility:[facility] Start: 03-15-2022 End: 03-16-2022 ambulatory SONALI HANK Facility:[facility] Start: 02-15-2022 End: 02-16-[address] [facility] Facility:[facility] Start: 02-09-2022 End: 02-10-[address] [facility] Facility:[facility] Start: 12-13-2021 End: 12-13-2021 Subsequent hospital visit by physician mEma Garza MD Work Phone: [facility] Comment on above: Post-operative state (Primary Dx) Start: 12-06-2021 End: 12-08-2021 Subsequent hospital visit by physician Stv Pat Xr [facility] Rad[facility] Comment on above: Arrived Start: 12-06-2021 [...] hospital visit by physician Stv Pat Xr [facility] Comment on above: Arrived Start: 05-12-2021 [...] above: Performed By: #### [id number] #### [facility] [place] [address], [facility] Start: 01-16-2017 History of placement of stent for coronary artery disease S/P coronary artery stent placement Wallace Stone MD Work Phone: Appendectomy Iliana DORANL Colposcopy Iliana NILL Cryosurgery of lesio n of cervix Iliana NILL Insertion of arteria l stent Iliana NILL Insertion of stent i n femoral vein Iliana NILL Repair of aneurysm Iliana Brown RBOWN Total hysterectomy v ia vaginal approach Iliana DORANBerna Ultrasonography guid ed biopsy of right breast Iliana DORANBerna Urinary bladder reconstruction Iliana DORANBerna Plan of Treatment Date Care Activity Detail Author Start: 11-07-2024 End: 11-07-2024 Patient encounter procedure 11/07/2024 10:00 AM EST Office Visit [facility] [address] [facility] [address] [place] [address] Peyman Hensley DPM [address] [facility] [address] [place] [address] [facility] Start: 08-29-2024 End: 08-29-2024 Patient encounter procedure [facility] Comment on above: 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 (CMS/HCC) (Primary Dx); Diabetes mellitus due to underlying condition with diabetic polyneuropathy, 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 intermediate accountant insulin use (CMS/HCC); Pain due to onychomycosis of toenails of both feet; Venous insufficiency Start: 06-20-2024 Hemoglobin/Hematocrit Hemoglobin/Hem atocrit [facility] Start: 06-20-2024 Serum Creatinine Serum Creatinine [facility] Start: 05-12-2024 Influenza vaccination Influenza Vacc ine (#1) [facility] Start: 02-15-2024 HEMOGLOBIN/HEMATOCRIT HEMOGLOBIN/HEM ATOCRIT [facility] Start: 02-15-2024 SERUM CREATININE SERUM CREATININE Cl [facility] Start: 06-16-2023 End: 08-16-2023 CBC W Auto Differential panel - Blood CBC + DIFF Lab Routine 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, estrogen receptor positive (HCC) Expected: 06/16/2023 (Approximate), Expires: 08/16/2023 [facility] Work Phone: Comment on above: Expected: 06/16/2023 (Approximate), Expires: 08/16/2023 Start: 06-16-2023 End: 08-16-2023 Comprehensive metabolic 2000 panel - Serum or Plasma COMP METABOLIC PANEL Lab Routine 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, estrogen receptor positive (HCC) Expected: 06/16/2023 (Approximate), Expires: 08/16/2023 [facility] Work Phone: Comment on above: Expected: 06/16/2023 (Approximate), Expires: 08/16/2023 Start: 05-12-2023 Covid-19 Vaccine ( season) Covid-19 Vaccine ( season) [facility] Start: 05-12-2023 Influenza vaccination C [facility] Start: 04-12-2023 End: 04-12-2023 Patient encounter procedure 04/12/2023 Office Visit Gynecologic Oncology Latonia Brush PA-C [address] [address] [facility] Gynecologic Oncology Services Start: 02-09-2023 End: 04-11-2023 CBC W Auto Differential panel - Blood CBC + DIFF Lab Routine 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, estrogen receptor positive (HCC) Expected: 02/09/2023 (Approximate), Expires: 04/11/2023 [facility] Work Phone: Comment on above: Expected: 02/09/2023 (Approximate), Expires: 04/11/2023 Start: 02-09-2023 End: 04-11-2023 Comprehensive metabolic 2000 panel - Serum or Plasma COMP METABOLIC PANEL Lab Routine 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, estrogen receptor positive (HCC) Expected: 02/09/2023 (Approximate), Expires: 04/11/2023 [facility] Work Phone: Comment on above: Expected: 02/09/2023 (Approximate), Expires: 04/11/2023 Start: 12-13-2022 Potassium monitoring Potassium monit [facility] [employer] Start: 12-06-2022 Creatinine measurement Creatinine mo [facility] Start: 12-06-2022 Potassium monitoring Potassium monit [facility] [employer] Start: 11-29-2022 End: 11-29-2022 [facility] Start: 09-11-2022 ADVANCE DIRECTIVE DISCUSSION ADVANCE DIRECTIVE DISCUSSION [facility] Start: 09-11-2022 DEPRESSION ASSESSMENT DEPRESSION ASS ESSMENT [facility] Start: 07-27-2022 End: 07-27-2022 Patient encounter procedure 07/27/2022 Office Visit Gynecologic Oncology Emma Garza MD [address] [facility] [address] [place] [address] [facility] Gynecologic Oncology Services Start: 06-28-2022 End: 06-28-2022 VULVA VAGINAL CERVIX LESION EXCISION LASER VULVA VAGINAL CERVIX LESION EXCISION LASER Vaginal dysplasia 06/28/2022 9:04 AM EDT [facility] Start: 06-15-2022 Creatinine measurement Creatinine mo [facility] [employer] Work Phone: Start: 06-15-2022 Potassium monitoring Potassium monit [facility] Work Phone: Start: 05-12-2022 Creatinine measurement Creatinine mo [facility] Work Phone: Start: 05-12-2022 Influenza vaccination INFLUENZA (#1) [facility] Start: 05-12-2022 Potassium monitoring Potassium monit [facility] Work Phone: Start: 04-11-2022 Influenza vaccination Flu vaccine (# 1) [facility] Start: 01-14-2022 End: 01-14-2022 Patient encounter procedure 01/14/2022 Office Visit Gynecologic Oncology Latonia Burks PA-C [address] [facility] [address] [place] [id number] [facility] Gynecologic Oncology Services Start: 12-13-2021 End: 12-13-2021 VAGINECTOMY [facility] Start: 12-13-2021 End: 12-13-2021 Admission to same day surgery center [facility] Comment on above: VAGINECTOMY, CYSTOSC OPY CYSTOSCOPY, VAGINECT PATY Start: 12-13-2021 Subsequent hospital visit by physician 12/13/2021 Hospital Encounter IP Unit Emma Garza MD [address] [facility] [address] [place] [id number] [facility] Start: 12-13-2021 End: 12-13-2021 Vaginectomy complete removal vaginal wall VAGINECTOMY VAGINAL DYSPLASIA, RULE OUT CANCER 12/13/2021 10:20 AM EDT [facility] Start: 10-31-2021 Annual Wellness Visi t (AWV) Annual Wellness Visit (AWV) [facility] Start: 10-15-2021 COVID-19 VACCINE (4 - Booster for Moderna series) COVID-19 VACCINE (4 - Booster for Moderna series) [facility] Start: 07-01-2021 End: 07-01-2021 Patient encounter procedure 07/01/2021 Office Visit Gynecologic Oncology Kin Abarca MD [address] [facility] [facility] [address] MOB 1 [place]FT [id number] [facility]nec[facility] Oncology Services Start: 05-12-2021 Influenza vaccination Flu vaccine (# 1) [facility] Work Phone: Start: 04-05-2021 COVID-19 Vaccine (3 - Booster for Moderna series) COVID-19 Vaccine (3 - Booster for Moderna series) [facility] Start: 10-29-2020 Hemoglobin A1c/Hemoglobin.total in Blood HBA1C [facility] Start: 01-19-2018 Pneumococcal Vaccine : 65+ (2 - PCV) Pneumococcal Vaccine: 65+ (2 - PCV) [facility] Start: 01-19-2018 Pneumococcal Vaccine : 65+ Years (2 of 2 - PCV) Pneumococcal Vaccine: 65+ Years (2 of 2 - PCV) [facility] Start: 01-19-2018 PNEUMOCOCCAL: 65+ (2 - PCV) PNEUMOCOCCAL: 65+ (2 - PCV) [facility] Start: 2007 BONE DENSITY BONE DENSITY [facility] Start: 2007 Bone Density Screening Bone Density Screening [facility] Start: 2007 Pneumococcal 65+ yea rs Vaccine (1 - PCV) Pneumococcal 65+ years Vaccine (1 - PCV) [facility] Start: 2007 Pneumococcal 65+ yea rs Vaccine (1 of 1 - PPSV23) Pneumococcal 65+ years Vaccine (1 of 1 - PPSV23) [facility] Start: 2002 Hepatitis B Vaccine (1 of 3 - Risk 3-dose series) Hepatitis B Vaccine (1 of 3 - Risk 3-dose series) [facility] Start: 1997 Screening for osteoporosis DEXA (modify frequency per FRAX score) [facility] Start: 1992 Shingles Vaccine (1 of 2) Shingles Vaccine (1 of 2) [facility] Start: 1992 SHINGRIX VACCINE (1 of 2) SHINGRIX VACCINE (1 of 2) [facility] Start: 1961 DTaP/Tdap/Td vaccine (1 - Tdap) DTaP/Tdap/Td vaccine (1 - Tdap) [facility] Start: 1961 Urine microalbumin profile [facility] Start: 1960 ANNUAL PCP TEAM ULTIMATE HOOPS REFEREE USAMA DISEASE VISIT ANNUAL PCP TEAM CHRONIC DISEASE VISIT [facility] Start: 1960 BP CONTROLLED (<130/80) BP CON TROLLED (<130/80) [facility] Start: 1960 Hepatitis B surface antibody level LDL CHOLESTEROL [facility] Start: 1960 Hepatitis C screening Hepatitis C sc reen [facility] Start: 1954 Depression Screen Depression Screen [facility] Start: 1952 3 comp foot exam completed DIABETIC FOOT EXAM [facility] Start: 1952 Hepatitis B screening URINE ALBUMIN:CREATININE RATIO [facility] Start: 1952 Hepatitis C antibody , confirmatory test DILATED RETINAL EXAM [facility] Start: 1952 Lipid panel [facility] Start: 1942 Hepatitis C screening Hepatitis C sc reen [facility] EKG 12 Lead EKG 12 Lead ECG STAT 06/28/2022 7:29 AM EDT [facility] Work Phone: End: 12-13-2021 INITIATE PACU OXYGEN THERAPY PROTOCOL Initiate PACU Oxygen Therapy Protocol Respiratory Care Routine Continuous until discontinued starting 12/13/2021 [employer] Work Phone: Comment on above: Continuous until dis continued starting 12/13/2021 End: 06-28-2022 INITIATE PACU OXYGEN THERAPY PROTOCOL Initiate PACU Oxygen Therapy Protocol Respiratory Care Routine Continuous until discontinued starting 06/28/2022 [facility] [employer] Work Phone: Comment on above: Continuous until dis continued starting 06/28/2022 End: 07-19-2024 MAGNO DIAGNOSTIC BILATERAL MAGNO DIAGNOSTIC BILATERAL Radiology Routine 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, estrogen receptor positive (HCC) 1 Occurrences starting 06/20/2023 until 07/19/2024 [facility] Work Phone: Comment on above: 1 Occurrences starti ng 06/20/2023 until 07/19/2024 Patient referral [facility] Work Phone: Spirometry panel Incentive viktoriya metry Respiratory Care Routine Every 2hr while awake until discontinued starting 12/13/2021 [employer] Work Phone: Comment on above: Every 2hr while awak e until discontinued starting 12/13/2021 Surgical Pathology Surgical Path ology Lab Routine Release Upon Ordering for 1 Occurrences starting 06/15/2021 [employer] Work Phone: Comment on above: Release Upon Orderin g for 1 Occurrences starting 06/15/2021 Surgical Pathology Surgical Path ology Lab Routine Release Upon Ordering for 1 Occurrences starting 12/13/2021 [facility] Phone: Comment on above: Release Upon Orderin g for 1 Occurrences starting 12/13/2021 Surgical Pathology Surgical Path ology Lab Routine Vaginal dysplasia Release Upon Ordering for 1 Occurrences starting 06/28/2022 [employer] Phone: Comment on above: Release Upon Orderin g for 1 Occurrences starting 06/28/2022 End: 06-28-2022 SURGICAL PATHOLOGY REPORT SURGICAL PATHOLOGY REPORT Lab Routine Once for 1 Occurrences starting 06/28/2022 until 06/28/2022 [employer] Phone: Comment on above: Once for 1 Occurrenc es starting 06/28/2022 until 06/28/2022 End: 11-24-2022 SURGICAL PATHOLOGY REPORT SURGICAL PATHOLOGY REPORT Lab Routine Once for 1 Occurrences starting 11/24/2022 until 11/24/2022 [employer] Phone: Comment on above: Once for 1 Occurrenc es starting 11/24/2022 until 11/24/2022 [facility] Immunizations Immunization Date Immunization Notes Care Provider [facility] 07-12-2022 influenza virus vacc ine, unspecified formulation Iliana GAGNON [facility] 08-20-2021 SARS-CoV-2 (COVID-19 ) mRNA-1273 vaccine Iliana GAGNON [facility] 07-01-2021 influenza (HD-IIV4) vaccine, age 65+ yr, high dose, quadrivalent, PF (FLUZONE HIGH-DOSE) Wallace Stone MD Work Phone: [facility] 07-01-2021 influenza virus vacc ine, unspecified formulation Winnie Guzmán PA-C Work Phone: [facility] 11-06-2020 COVID-19, Moderna, P F, 100mcg/0.5mL Stv Xr [facility] 10-09-2020 COVID-19, Moderna, P F, 100mcg/0.5mL Stv Xr [facility] Work Phone: 06-10-2020 Seasonal trivalent influenza vaccine, adjuvanted, preservative free Wallace Stone MD Work Phone: [facility] 06-07-2017 influenza, high dose seasonal, preservative-free Wallace Stone MD Work Phone: [facility] 01-19-2017 pneumococcal polysaccharide vaccine, 23 valent Wallace Stone MD Work Phone: [facility] 06-29-2015 influenza, high dose seasonal, preservative-free Wallace Stone MD Work Phone: [facility] 06-23-2014 influenza, high dose seasonal, preservative-free Wallace Stone MD Work Phone: [facility] 06-15-2010 pneumococcal polysaccharide vaccine, 23 valent Wallace Stone MD Work Phone: [facility] 06-27-2007 influenza virus vacc ine, whole virus Wallace Stone MD Work Phone: [facility] Payers Date Payer Category Payer Self-pay [id number] 2023 Private Health Insurance [facility] KASSIE BAEZAHANDRE Nair [id number] 2007 Medicare [id number]. 1.13.159. 2.7.3.748319.315 2007 Unknown [id number]. 1.13.159. 2.7.3.767437.315 2007 Unknown [id number] 1.2.840.645777.1.13.239. 2.7.3.380736.315 1959 Medicare [id number] 1.2.840.578154.1.13.239. 2.7.3.143540.315 1959 Self-pay [id number] 1959 Unknown [id number] 2.16.840.1.932304.19 1942 Unknown [id number] 2.16.840.1.408004.3.579. 2.593 1942 Unknown [id number] 2.16.840.1.247921.3.579. 2.593 1942 Unknown [id number] 2.16.840.1.790840.3.579. 2.593 1942 Unknown [id number] 2.16.840.1.816284.3.579. 2.593 1942 Unknown [id number] 2.16.840.1.438795.3.579. 2.593 1942 Unknown [id number] 2.16.840.1.251590.3.579. 2.593 1942 Unknown [id number] 2.16.840.1.463452.3.579. 2.593 1942 Unknown [id number] 2.16.840.1.327183.3.579. 2.593 1942 Unknown [id number] 2.16.840.1.019554.3.579. 2.593 1942 Unknown [id number] 2.16.840.1.851530.3.579. 2.593 1942 Unknown [id number] 2.16.840.1.197572.3.579. 2.593 1942 Unknown [id number] 2.16.840.1.505986.3.579. 2.593 1942 Unknown [id number] 2.16.840.1.858276.3.579. 2.593 1942 Unknown [id number] 2.16.840.1.573584.3.579. 2.593 1942 Unknown [id number] 2.16.840.1.636550.3.579. 2.593 1942 Unknown [id number] 2.16.840.1.270612.3.579. 2.593 1942 Unknown [id number] 2.16.840.1.486826.3.579. 2.593 1942 Unknown [id number] 2.16.840.1.645364.3.579. 2.593 1942 Unknown [id number] 2.16.840.1.072431.3.579. 2.593 1942 Unknown [id number] 2.16.840.1.619156.3.579. 2.593 1942 Unknown [id number] 2.16.840.1.533885.3.579. 2.593 1942 Unknown [id number] 2.16.840.1.357026.3.579. 2.593 1942 Unknown [id number] 2.16.840.1.076374.3.579. 2.593 1942 Unknown [id number] 2.16.840.1.832644.3.579. 2.593 1942 Unknown [id number] 2.16.840.1.614284.3.579. 2.593 1942 Unknown [id number] 2.16.840.1.971731.3.579. 2.593 1942 Unknown [id number] 2.16.840.1.946599.3.579. 2.593 1942 Unknown [id number] 2.16.840.1.804394.3.579. 2.727 1942 Unknown [id number] 2.16.840.1.416787.3.579. 2.727 1942 Unknown [id number] 2.16.840.1.675056.3.579. 2.727 1942 Unknown [id number] 2.16.840.1.679028.3.579. 2.727 1942 Unknown [id number] 2.16.840.1.667986.3.579. 2.727 1942 Unknown [id number] 2.16.840.1.188323.3.579. 2.727 1942 Unknown [id number] 2.16.840.1.535041.3.579. 2.727 1942 Unknown [id number] 2.16.840.1.274700.3.579. 2.175 1942 Unknown [id number] 2.16840.1.116416.3.579. 2.175 1942 Unknown [id number] 2.16840.1.162063.3.579. 2.175 1942 Unknown [id number] 2.16.840.1.296705.3.579. 2.1259 1942 Unknown [id number] 2.16840.1.742760.3.579. 2.1259 Medicare Medicare Outpatient [id number] Unknown [id number] 2.16840.1.100883.3.579. 2.531 Unknown [id number] 2.16.840.1.801152.3.579. 2.531 Social History Date Type Detail Facility Start: 05-12-2021 End: 06-20-2024 Tobacco smoking status NHIS Former smoker [facility] Phone: Start: 09-11-1962 End: 06-28-2018 History of tobacco use Current smoker [facility] Start: 09-11-1962 End: 06-28-2018 History of tobacco use Cigarette Smoker [facility] Start: 05-12-2021 End: 06-20-2024 Tobacco use and exposure Never used [facility] Start: 05-12-2021 End: 11-24-2022 Alcohol intake Ex-drinker (finding) [facility] Phone: Start: 1940 Sex Assigned At Not on file [facility] [facility] Phone: Start: 11-26-2021 End: 06-24-2022 Exposure to SARS-CoV-2 (event) Not sure [facility] Start: 06-15-2021 End: 06-20-2024 Cigarettes smoked current (pack per day) - Reported [facility] History of tobacco use Passive smoker [facility] [employer] Phone: Tobacco smoking status Never [facility] [place] Start: 02-14-2023 End: 06-20-2024 Sex Assigned At Female [facility] Start: 09-19-2022 End: 02-14-2023 Alcohol intake Current non-drinker of alcohol (finding) [facility] Start: 1940 Sex Assigned At Female F [facility] Tobacco smoking stat [facility] Tobacco smoking consumption unknown [facility] Start: 06-20-2024 End: 08-29-2024 Alcoholic beverage intake Lifetime non-drinker (finding) [facility] Medical Equipment Procedure Code Equipment Code [...] Facility 09-09-2022 Functional Status N/A [facility] Clinical Notes 05-12-2021 to 09-02-2024 Peyman Hensley DPM - 08/29/2024 10:00 AM Darius Hensley DPM - 06/20/2024 9:40 AM EDT Note Date & Type Note Facility 09-02-2024 Note [place] Electrophys[place] Consult Note [place] [facility] Reason for visit: s/p CRTD [...] today shows good function. Patient underwent the PAYROLL SECRETARY placement on 07/10/2024 and subsequently underwent an [...] in A-fib. She was just discharged from [facility] for GI bleed. Eliquis and aspirin have [...] fibrillation (CMS/HCC) CAD (coronary artery disease) Cancer ([facility]/HCC) CHF (congestive heart failure) ([facility]/HCC) Chronic kidney disease COPD (chronic obstructive pulmonary disease) (CMS/HCC) Diabetes mellitus (CMS/HCC) GI bleed Heart murmur Hyperlipidemia Hypertension PVD (peripheral vascular disease) ([facility]/HCC) PSH: Past Surgical History: Procedure Laterality Date [...] fish oil concen (more content not included)... [facility] 08-29-2024 History of Present illness Narrative Patient: [...] 4 months after hitting object. Currently sees [facility] every 3 weeks with [...] Partner Violence: Unknown (11/02/2023) [facility] [place] Fear of [...] and negative PT pedal pulses NEURO: 5.07 Dodson Sybil monofilament test intact to digits and forefoot bilaterally 125Hz tuning fork diminished to 1st MPJ bilaterally ORTHO: Positive pain on palpation to nails 1 through 10 Positive pain palpation left anterior braun ASSESSMENT 1. 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 Diabetes mellitus due to underlying condition with diabetic polyneuropathy, 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 intermediate accountant insulin use (CMS/HCC) 3. Pain due to [...] DSD applied . Patient currently has the [facility] wound center applying Medihoney every other day. Did discuss possibility if no improvement to contact Podiatry for advanced wound care treatments or if any signs of infection Peyman Hensley DPM documented in this encounter [facility] 08-27-2024 Note [place] Electrophysiology Consult Note [place] - [facility] Reason for visit: s/p CRTD [...] today shows good function. Patient underwent the PAYROLL SECRETARY placement on 07/10/2024 and subsequently underwent an [...] in A-fib. She was just discharged from [facility] for GI bleed. Eliquis and aspirin have [...] kidney disease COPD (chronic obstructive pulmonary disease) ([facility]/HCC) Diabetes mellitus ([facility]/HCC) GI bleed Heart murmur Hyperlipidemia Hypertension PVD (peripheral vascular disease) ([facility]/HCC) PSH: Past Surgical History: Procedure Laterality Date CARDIAC CATHETERIZATION 12/15/2011, 08/23/2010, 12/30/2004, CORONARY STENT PLACEMENT HYSTERECTOMY 03/11/2005 VASCULAR SURGERY SH: Social Determinants of Health Tobacco Use: Medium Risk (06/20/2024) [facility] Patient History Smoking Tobacco Use: Former Smokeless Tobacco Use: Never Passive Exposure: Not on file Alcohol Use: Not on file Financial Resource Strain: Not on file Food Insecurity: Not on file Transportation Needs: Not on file Physical Activity: Not on file Stress: Not on file Social Connections: Not on file Intimate Partner Violence: Unknown (11/02/2023) [place] Fear of Current or Ex-Partner: Not on file Emotionally Abused: Not on file Physically Abused: Not on file Sexually Abused: Not on file Physically or Sexually Abused: Not on file Depression: Not at risk (02/14/2023) Received from [facility], [facility] PHQ-2 PHQ-2 score: 0 Housing Stability: Not [...] mouth two times daily. fish oil concentrate (Metcalfe-3) 120-180 mg capsule Take 1,000 mg by [...] insulin glargine (L (more content not included)... [facility] 08-12-2024 Note AV NODE ABLATION PRO CEDURE REPORT DATE OF PROCEDURE: 08/12/2024 PERFORMING PHYSICIAN: Dr. Brian Potter ADVERTISING AGENCY MANAGER: SAVAGE CONSENT: Patient NAME OF THE PROCEDURE: [...] in A-fib. She was just discharged from [facility] for GI bleed. Eliquis and aspirin have been put on hold. She was originally scheduled for DCCV today with Dr. Keyes. Jardiance was stopped, and metoprolol was reduced to 100mg daily.She underwent PAYROLL SECRETARY on 07/10/24 and now presents for AVN [...] Continue anticoagulation. Brian Potter MD Cardiac Electrophysiology. 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 1 EP / [facility] (Cath) Providers: Brian Potter MD Clinical information reviewed: Allergies Meds OB Status Physical Exam Airway Mallampati: II TM distance: >3 FB Neck ROM: full Cardiovascular Dental Pulmonary Abdominal Anesthesia Plan ASA 2 CSE Additional Equipment Requests [facility] 07-17-2024 Note [place] [facility] Subjective Harman Mcleod is a [...] List Diagnosis Angina pectoris (CMS/HCC) Atherosclerosis of kootenai coronary artery of kootenai heart without angina pectoris Dyslipidemia Dyspnea Gastroesophageal [...] Diagnosis Date Abnormal ECG Arrhythmia Atrial fibrillation ([facility]) CAD (coronary artery disease) Cancer ([facility]) CHF (congestive heart failure) ([facility]) Chronic kidney disease COPD (chronic obstructive pulmonary disease) ([facility]) Diabetes mellitus ([facility]) GI bleed Heart murmur Hyperlipidemia Hypertension PVD (peripheral vascular disease) ([facility]) Past Surgical History: Procedure Laterality Date CARDIAC [...] m (5' 1 (more content not included)... [facility] 07-10-2024 Note PAYROLL SECRETARY-D IMPLANT PROCED URE NOTE DATE OF PROCEDURE: 07/10/2024 PERFORMING PHYSICIAN: Dr. rBian Potter ADVERTISING AGENCY MANAGER: SAVAGE CONSENT: Patient LOCATION: [facility] PROCEDURE PERFORMED: 1. Implantation of Biventricular ICD ([employer]) 2. U/S venous access 3. Coronary [...] be in A-fib. [facility]. Eliquis and aspirin have [...] dizziness/lightheadedness. Decision was made to proceed with PAYROLL SECRETARY-D device and an AVN ablation. PROCEDURAL DETAILS: [...] occasions using seldinger technique using a 5 [place]ar[place]uan micropunture needle and exchanged for 0.034 wire. I decided to proceed with opening of the pocket. Localinfiltration of 1% Lidocaine was performed and an incision was created in the left upper chest. Dissection was then performed using cautery down. An active fixation [employer] ICD lead was then delivered through the 8F sheath to the right ventricle. After confirmation of lead position on orthogonal views (JAIMES and BERMUDIAN) to confirm position in the septal aspect, [...] postero-lateral branch that was fairly good size. Gattman-Tammy catheter was then taken out and a 90degree inner cannula was advanced into the CS. The amplatz wire was removed and then a0.24 wire was used as a emily wire. I then used a whisper wire and this tracked into the posterolateral vein. [employer] S shaped lead was advanced over 0.014 wire into the lateral border. Once the guiding sheaths were removed, the lead was secured in the pocket using three 0- Silk sutures.The leads were then attached to a [employer] PAYROLL SECRETARY-D device and the leads tug tested and [...] was placed o (more content not included)... 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 Use of blood products discussed with patient who. Additional Equipment Requests [facility] 07-10-2024 Note Betadine nasal swabs completed. Pt did CHG wipes last night. Pt stated that the wipes made her break out. Pt does not want to use the wipes again preprocedure. [facility] 07-02-2024 Note [place] Electrophysiology Consult Note [place] Card[place] [facility] Reason for visit: Afib HPI: [...] in A-fib. She was just discharged from [facility] for GI bleed. Eliquis and aspirin have [...] disease) Cancer (CMS/HCC) CHF (congestive heart failure) ([facility]) Chronic kidney disease COPD (chronic obstructive pulmonary disease) ([facility] Diabetes mellitus ([facility]) GI bleed Heart murmur Hyperlipidemia Hypertension PVD (peripheral vascular disease) ([facility]) PSH: Past Surgical History: Procedure Laterality Date [...] on file Intimate Partner Violence: Unknown (11/02/2023) [place] Fear of Current or [...] mouth two times daily. fish oil concentrate (Metcalfe-3) 120-180 mg capsule Take 1,000 mg by [...] mouth at bedti (more content not included)... [facility] 06-20-2024 History of Present illness Narrative [...] 2 months after hitting object. Currently sees [facility] every 3 weeks with [...] Partner Violence: Unknown (11/02/2023) [facility] [place] Fear of [...] and negative PT pedal pulses NEURO: 5.07 Dodson Sybil monofilament test intact to digits and forefoot bilaterally 125Hz tuning fork diminished to 1st MPJ bilaterally ORTHO: Positive pain on palpation to nails 1 through 10 Positive pain palpation left anterior braun ASSESSMENT 1. Venous insufficiency 2. Hav (hallux abducto valgus), left 3. Acquired deformity of left toe 4. 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 Diabetes mellitus due to underlying condition with diabetic polyneuropathy, 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 senior care insulin use ([facility]) 6. Pain due to onychomycosis of toenails [...] DSD applied . Patient currently has the [facility] wound center applying Medihoney every other day. Did discuss possibility if no improvement to contact Podiatry for advanced wound care treatments or if any signs of infection Peyman Hensley DPM documented in this encounter [facility] 06-12-2024 Note [place] [facility] Subjective Harman Mcleod is a 83 y.o. year old female patient being seen for follow up echo performed on 06/04/2024. Denies chest pain, SOB, and palpitations. Feels good but is tired today. BP at home was 107/71 today and yesterday 114/55. Patient Active Problem List Diagnosis Angina pectoris (CMS/HCC) Atherosclerosis of k[place]enai coronary artery of k[place]enai heart without angina pectoris Dyslipidemia Dyspnea Gastroesophageal [...] alert and orie (more content not included)... [facility] 05-27-2024 Note Remains on ASA No c/o angina or concerns [facility] 05-27-2024 Note As above [facility] 05-27-2024 Note [id number]= 6-7 at least with Age, Sex, CHF, CAD/Vascular disease, HTN, DM Currently per assessment she appears to be in rhythm heart rate well-controlled with metoprolol 200 mg daily and she remains on Eliquis anticoagulation without any bleeding tendencies or concerns. [facility] 05-27-2024 Note Lipid abnormalities are elevated therefore will increase zocor to 40 mg daily. Will repeat lipid level and liver function in 2-3 months [facility] 05-27-2024 Note Congestive heart ivanemily todd is stable without worsening symptoms MOHC II -currently patient is euvolemic without exacerbation. She has returned home from group home facility and presents today with granddaughter [...] helps prevent rehospitalization for heart failure exacerbation [facility] 05-27-2024 Note Hypertension current ly is well-controlled at 106/67 Continue amlodipine, hydralazine, Imdur, Toprol and spironolactone Currently renal function normal, no acute concerns. [facility] 05-27-2024 Note Coronary artery dise ase [...] exercise as tolerated and continue all medications. [facility] 05-27-2024 Note Pt is here for a one year follow up. Pt denies chest pain, palpatations, sob. Review of Systems All other systems reviewed and are negative. [facility] 05-27-2024 Note UTP CARDIOLOGY PROGR ESS [...] fluid overload-of which she was discharged to group home facility until this past December. She [...] systems reviewed and are negative Admit to [facility] 02/13/24 DC Summary DS: Summary Hospital Course [...] 81 mg by mouth. fish oil concentrate (Metcalfe-3) 120-180 mg capsule Take 1,000 mg by [...] 112 mcg tabl (more content not included)... [facility] 04-10-2024 Progress note Note Date/Time April 10, 2024 10:30am [facility] [address] [place] [address] Wound Center Provider Note Signed Patient: Harman Mcleod MR#: [id number] : 1940 Acct:[id number] Age/Sex: 83 / F Copies to: MD Janell Oliver, FERNY~ HPI Date of Visit Date of Visit: Date of Service: 04/10/2024 Time of Service: 10:26 Narrative HPI: 12/11/23 Harman is an 83 year old presenting to [facility] for an initial visit for [...] present for the entire visit, she has [facility], the left leg will be treated [...] wrapped again today for good measure and [facility] can remove next week and start stockings or wraps if something is open on the legs, family and friend present for the visit, does not need to return to the office unless new ulcers do develop, spoke about her getting established with a weighbridge operator and so hopefully she will follow through [...] to go to the ED per the [facility] nurse but she had refused this [...] bilateral lower leg ulcers Mode of Arrival/ Magnet Valve Assembler: Friend Assistive Device Used Today: Walker Lives with:: Significant Other Appetite Description: Within Normal Limits Who helps w/ dressing change?: Home Health Why Do You Need Help?: Can't Reach Ulcer, Limited mobility, Unsafe leave home byself and Taxing effort to leave home Smoking Status: Former smoker [facility] Medical History (Updated 04/10/24 @ 10:30 [...] List clean-up per request of Phys. [facility] Family History (Updated 06/01/23 @ 08:45 by [...] DAILY 04/25/19 [History Confirmed 12/11/23] omega-3s 300 uh-agk-lgu-other qaycn7m-kbfj oil 1,000 mg capsule (Metcalfe-3 Fish Oil) 2 cap PO BID 04/25/19 [...] Stasis Ulcer Thickness: Skin Breakdown Bed Appearance: Wamsutter Percent of Wound Bed Granulated/Red: 100 Percent [...] <Electronically signed by FERNY Mathews> 04/10/24 [address] [facility] Work Phone: 1(480) 109-385807-16-2024 Progress note Author Janell Mathews [facility] March 26, 2024 9:51am Note Date/Time March 26, 2024 9:51 am [facility] [address] [place] [address] Wound Center Provider Note Signed Patient: Harman Mcleod MR#: [id number] : 1940 Acct:[id number] Age/Sex: 83 / F Copies to: MD Janell Oliver APRN~ HPI Date of Visit Date of Visit: Date of Service: 03/26/2024 Time of Service: 09:47 Narrative HPI: 12/11/23 Harman is an 83 year old presenting to [facility] for an initial visit for [...] present for the entire visit, she has [facility], the left leg will be treated [...] wrapped again today for good measure and [facility] can remove next week and start stockings or wraps if something is open on the legs, family and friend present for the visit, does not need to return to the office unless new ulcers do develop, spoke about her getting established with a weighbridge operator and so hopefully she will follow through [...] to go to the ED per the [facility] nurse but she had refused this [...] bilateral lower leg ulcers Mode of Arrival/ Magnet Valve Assembler: Friend Assistive Device Used Today: Walker Lives with:: Significant Other Appetite Description: Within Normal Limits Who helps w/ dressing change?: Home Health Why Do You Need Help?: Can't Reach Ulcer, Limited mobility, Unsafe leave home byself and Taxing effort to leave home Smoking Status: Former smoker [facility] Medical History (Updated 02/13/24 @ 10:54 [...] List clean-up per request of Phys. EHR [facility] Hyperthyroidism Problem List clean-up per request of Phys. EHR [facility] Diabetes mellitus Problem List clean-up per request of Phys. EHR Cmte Hypertension Problem List clean-up per request of Phys. EHR [facility] Surgical History History of bladder suspension procedure Problem List clean-up per request of Phys. EHR [facility] H/O: hysterectomy Problem List clean-up per request of Phys. EHR Cmte History of appendectomy Problem List clean-up per request of Phys. EHR Cmte History of heart artery stent Problem List clean-up per request of Phys. EHR [facility] Family History (Updated 06/01/23 @ 08:45 by [...] DAILY 04/25/19 [History Confirmed 12/11/23] omega-3s 300 xr-myv-oxt-other lzclw0g-rifq oil 1,000 mg capsule (Metcalfe-3 Fish Oil) 2 cap PO BID 04/25/19 [...] Breakdown Bed Appearance: Epithelial Tissue or Bridge, Wamsutter and Yellow Percent of Wound Bed Granulated/Red: [...] <Electronically signed by FERNY Mathews> 03/26/24 [address] [facility] Work Phone: 1(440) 882-699606-04-2024 Progress note Author Janell Mathews [facility] February 13, 2024 10:55am Note Date/Time February 13, 2024 10:55 am [facility] [address] [place] [address] Wound Center Provider Note Signed Patient: Harman Mcleod MR#: [id number] : 1940 Acct:[id number] Age/Sex: 83 / F Copies to: MD Janell Oliver APRN~ HPI Date of Visit Date of Visit: Date of Service: 02/13/2024 Time of Service: 10:47 Narrative HPI: 12/11/23 Harman is an 83 year old presenting to [facility] for an initial visit for [...] [facility] for the entire visit, [facility] will be [facility] [...] spoke about her getting established with a weighbridge operator and so hopefully she will follow through [...] to go to the ED per the [facility] nurse but she had refused this and wanted to come to this appt instead Subjective Pain Left Leg: Pain Description: Intermittent Pain Intensity: 0 Wound/Ulcer History When did wound start?: August 2023 bilateral lower leg ulcers Mode of Arrival/ Magnet Valve Assembler: Friend Assistive Device Used Today: Walker Lives with:: Significant Other Appetite Description: Within Normal Limits Who helps w/ dressing change?: Home Health Why Do You Need Help?: Can't Reach Ulcer, Limited mobility, Unsafe leave home byself and Taxing effort to leave home Smoking Status: Former smoker [facility] Medical History (Updated 02/13/24 @ 10:54 [...] List clean-up per request of Phys. EHR [facility] Surgical History History of bladder suspension procedure Problem List clean-up per request of Phys. EHR Cmte H/O: hysterectomy Problem List clean-up per request of Phys. EHR [facility] History of appendectomy Problem List clean-up per request of Phys. EHR Cmte History of heart artery stent Problem List clean-up per request of Phys. EHR [facility] Family History (Updated 06/01/23 @ 08:45 by [...] DAILY 04/25/19 [History Confirmed 12/11/23] omega-3s 300 is-olw-qmf-other nkssh2w-waal oil 1,000 mg capsule (Metcalfe-3 Fish Oil) 2 cap PO BID 04/25/19 [...] Posterior Thigh: Bed Appearance: Beefy Red and Wamsutter Percent of Wound Bed Granulated/Red: 0 Percent [...] Spent With Patient (min): 15 Dictated By: Jnaell Mathews APRN DD/ [id number] Signed By: <Electronically signed by FERNY Mathews> 02/13/24 1055 [facility] Work Phone: 1(181) 425-987005-21-2024 Progress note Author Janell Mathews [facility] January 30, 2024 10:44am Note Date/Time January 30, 2024 10:44 am [facility] [address] [place] [address] Wound Center Provider Note Signed Patient: Harman Mcleod MR#: [id number] : 1940 Acct:[id number] Age/Sex: 83 / F Copies to: MD Janell Oliver APRN~ HPI Date of Visit Date of Visit: Date of Service: 01/30/2024 Time of Service: 10:37 Narrative HPI: 12/11/23 Harman is an 83 year old presenting to [facility] for an initial visit for [...] present for the entire visit, she has [facility], the left leg will be treated [...] spoke about her getting established with a weighbridge operator and so hopefully she will follow through [...] bilateral lower leg ulcers Mode of Arrival/ Magnet Valve Assembler: Friend Assistive Device Used Today: Walker Lives with:: Significant Other Appetite Description: Within Normal Limits Who helps w/ dressing change?: Home Health Why Do You Need Help?: Can't Reach Ulcer, Limited mobility, Unsafe leave home byself and Taxing effort to leave home Smoking Status: Former smoker [facility] Medical History (Updated 01/30/24 @ 10:43 [...] List clean-up per request of Phys. EHR [facility] Surgical History History of bladder suspension procedure Problem List clean-up per request of Phys. EHR Cmte H/O: hysterectomy Problem List clean-up per request of Phys. EHR Cmte History of appendectomy Problem List clean-up per request of Phys. EHR Cmte History of heart artery stent Problem List clean-up per request of Phys. EHR [facility] Family History (Updated 06/01/23 @ 08:45 by [...] DAILY 04/25/19 [History Confirmed 12/11/23] omega-3s 300 tr-skw-twu-other pvsad0q-rxsz oil 1,000 mg capsule (Metcalfe-3 Fish Oil) 2 cap PO BID 04/25/19 [...] Posterior Thigh: Bed Appearance: Beefy Red and Wamsutter Percent of Wound Bed Granulated/Red: 100 Percent [...] <Electronically signed by FERNY Mathews> 01/30/24 1044 [facility] Work Phone: 1(220) 121-398904-18-2024 Progress note Author Janell Mathews [facility] December 28, 2023 11:22am Note Date/Time December 28, 2023 11: 22am [facility] [address] [place] [address] Wound Center Provider Note Signed Patient: Harman Mcleod MR#: [id number] : 1940 Acct:[id number] Age/Sex: 83 / F Copies to: MD Janell Oliver APRN~ HPI Date of Visit Date of Visit: Date of Service: 12/28/2023 Time of Service: 11:19 Narrative HPI: 12/11/23 Harman is an 83 year old presenting to [facility] for an initial visit for [...] present for the entire visit, she has [facility], the left leg will be treated [...] wrapped again today for good measure and [facility] can remove next week and start stockings or wraps if something is open on the legs, family and friend present for the visit, does not need to return to the office unless new ulcers do develop, spoke about her getting established with a weighbridge operator and so hopefully she will follow through on that, spoke about compression socks too forlong term use Subjective Pain Left Leg: Pain Intensity: 0 Wound/Ulcer History When did wound start?: August 2023 bilateral lower leg ulcers Mode of Arrival/ Magnet Valve Assembler: Friend Assistive Device Used Today: Walker Lives with:: Significant Other Appetite Description: Within Normal Limits Who helps w/ dressing change?: Home Health Why Do You Need Help?: Can't Reach Ulcer, Limited mobility, Unsafe leave home byself and Taxing effort to leave home Smoking Status: Former smoker [facility] Medical History (Updated 12/11/23 @ 09:30 [...] List clean-up per request of Phys. EHR [facility] Family History (Updated 06/01/23 @ 08:45 by [...] DAILY 04/25/19 [History Confirmed 12/11/23] omega-3s 300 hw-tgi-egd-other lwxmg7g-uovd oil 1,000 mg capsule (Metcalfe-3 Fish Oil) 2 cap PO BID 04/25/19 [...] <Electronically signed by FERNY Mathews> 12/28/23 112[address] [facility] Work Phone: 1(345) 713-109804-01-2024 Progress note Author Janell Mathews [facility] December 11, 2023 9:35am Note Date/Time December 11, 2023 9:35 am [facility] [address] [place] [address] Wound Center Provider Note Signed Patient: Harman Mcleod MR#: [id number] : 1940 Acct:[id number] Age/Sex: 83 / F Copies to: MD Janell Oliver APRN~ HPI Date of Visit Date of Visit: Date of Service: 12/11/2023 Time of Service: 09:27 Narrative HPI: 12/11/23 Harman is an 83 year old presenting to [facility] for an initial visit for [...] present for the entire visit, she has [facility], the left leg will be treated [...] bilateral lower leg ulcers Mode of Arrival/ Magnet Valve Assembler: Friend Assistive Device Used Today: Walker Lives with:: Significant Other Appetite Description: Within Normal Limits Who helps w/ dressing change?: Home Health Why Do You Need Help?: Can't Reach Ulcer, Limited mobility, Unsafe leave home byself and Taxing effort to leave home Smoking Status: Former smoker [facility] Medical History (Updated 12/11/23 @ 09:30 [...] DAILY 04/25/19 [History Confirmed 12/11/23] omega-3s 300 up-kbg-bhc-other fxycp7n-ktha oil 1,000 mg capsule (Metcalfe-3 Fish Oil) 2 cap PO BID 04/25/19 [...] Breakdown Bed Appearance: Epithelial Tissue or Bridge, Wamsutter and Yellow Percent of Wound Bed Granulated/Red: [...] By: <Electronically signed by FERNY Mathews> 12/11/23934 [facility] Work Phone: [phone]) 588-692010-10-2023 NoteHNO ID: [id number] Author: Winnie Guzmán PA-C Service: ? Author Type: Physician Grain Elevator Operator Type: Progress Notes Filed: 06/20/2023 3:58 PM Note Text: PATIENT NAME: Harman Mcleod CLINIC NO.: [id number] ATTENDING PHYSICIAN: Wallace Stone MD DATE OF [...] Negative LVI, 2 SNL negative, ER and MA >95% positive, Her2 IHC 1+ Treatment History: [...] 6.4 10/24/2017 7.3 Al (more content not included)...[facility]10-10-2023 Nurse Note * Lina Lopes MA - 06/20/2023 2:49 PM EDT Patient would like to know if she needs a mammogram? She was told in Oct that she would need one in6 months. Lina Lopes MA documented in this encounterC[facility] History of Present illness Narrative* Winnie Guzmán PA-C - 06/20/2023 2:30 PM EDT Images from the original note were not included. PATIENT NAME: Harman Mcleod [facility] NO.: [id number] ATTENDING PHYSICIAN: Wallace Stone MD DATE OF [...] Negative LVI, 2 SNL negative, ER and MA >95% positive, Her2 IHC 1+ Treatment History: [...] Range Status 06/20/2023 4.8 % Final Abs Irwin Date Value Ref Range Status 06/20/2023 0.49 [...] follow up. R Breast T1b,N0,M0- ER and MA >95% positive and Her-2 IHC 1+ tumor post Lumpectomy and SNL 10/2022. Reviewed path and she elected not to proceed with XRT and started Arimidex in 11/2022. Continues to tolerate well. Mammogram in 07/2023 (order placed). See us in 4 months. Plan is for 5 years of AI therapy Osteoporosis- On Prolia started 08/[address] Perry Vulvar high grade dysplasia- Follows Training Administrator Onc at [facility] R Leg swelling and pain and h/o PVD- Follows vascular HTN--managed by PCP Winnie Guzmán PA-C CC: MD Mateus Spicer MD documented in this encounterC[facility]09-[facility]-2023 Evaluation note* Encounter Date Diagnosis Assessment [...] In addition I took her to the [facility] and performed a right iliac venogram which [...] offer her a second opinion at the [facility] vascular medicine program. She declined. I will see her as needed in the future. [facility] 06-29-2023 Evaluation note* Encounter Date Diagnosis [...] to call us with any concerns whatsoever. [facility] 06-06-2023 NoteHNO ID: [id number] Author: Wallace Stone MD Service: ? Author Type: Physician Type: Progress Notes Filed: 02/14/2023 10:49 AM Note Text: PATIENT NAME: Harman Mcleod CLINIC NO.: [id number] ATTENDING PHYSICIAN: Wallace Stone MD DATE OF [...] Negative LVI, 2 SNL negative, ER and MA >95% positive, Her2 IHC 1+ Treatment History: [...] 04/28/2020 1.12 BUN (mg/dL) (more content not included)...[facility] History of Present illness Narrative* Wallace Stone MD - 02/14/2023 10:37 AM EDT Images from the original note were not included. PATIENT NAME: Harman Mcleod CLINIC NO.: [id number] ATTENDING PHYSICIAN: Wallace Stone MD DATE OF [...] Negative LVI, 2 SNL negative, ER and MA >95% positive, Her2 IHC 1+ Treatment History: [...] Range Status 02/14/2023 8.3 % Final Abs Irwin Date Value Ref Range Status 02/14/2023 0.86 [...] follow up. R Breast T1b,N0,M0- ER and MA >95% positive and Her-2 IHC 1+ tumor post Lumpectomy and SNL 10/2022. Reviewed path and she elected not to proceed with XRT and started Arimidex in 11/2022 and toleraing well. Plan for 5 years of therapy. Osteoporosis- On Prolia started 08/[address] Perry Vulvar high grade dysplasia- Follows Training Administrator Onc at [facility] R Leg swelling and pain and h/o PVD- Follows vascular HTN Rash- refer to Derm Thank you for the kind referral. If there are any questions and or concerns please do not hesitate to contact me at [phone]. Wallace Stone MD Hematology/Medical Oncology [facility] I spent a total of 30 minutes on the date of the service which included preparing to see the patient, mgov-xr-mkss patient care, completing clinical documentation, obtaining and/or reviewing separately obtained history, performing a medically appropriate examination, counseling and educating the pat ient/family/caregiver, and ordering medications, tests, or procedures. CC: MD Mateus Spicer MD documented in this encounterC[facility]03-29-2023 Evaluation note* Encounter Date Diagnosis Assessment [...] primary care provider as well as her pulpwood contractor. We will continue to follow her along and see her again in a couple of months and see how she is doing with her pumps, conservative efforts, and weight management. She knows to call us in the meantime with any other additional concerns or complaints. [facility] 03-21-2023 [facility]* Encounter Date Diagnosis Assessment Notes [...] specified soft tissue disorders (ICD-10 - M79.89) [facility] 03-08-2023 Miscellaneous Notes* Telephone Encounter - Adriana Pereira Pss - 11/16/2022 8:40 AM EST Called Vascular office spoke with Jessy. They have received this referral and have patient scheduledwith Dr Gonzales on 11/23 @ 10:00. Adriana Pereira Pss * Telephone Encounter - Kira Ko [facility] - 11/10/2022 9:38 AM EST Records faxed. * Telephone Encounter - Adriana Pereira [facility] - 11/10/2022 8:46 AM EST Janeth: Information ready for you. Adriana Pereira Pss * Telephone Encounter - Carlos Brooks - 11/09/2022 2:44 PM EST Vascular Consult [facility] Previous patient of Dr. Mendez 3 years or more. Janeth/Dudley: Can you please refer patient and follow up? Thanks! Carlos Brooks documented in this encounterC[facility]03-01-2023 NoteHNO ID: [id number] Author: Wallace Stone MD Service: ? Author Type: Physician Type: Progress Notes Filed: 11/09/2022 2:24 PM Note Text: PATIENT NAME: Harman Mcleod CLINIC NO.: [id number] ATTENDING PHYSICIAN: Wallace Stone MD DATE OF SERVICE: November 09, [address] Banks referring provider defined for this encounter. here is an update on a follow up visit on female Harman Mcleod at the clinic 11/09/2022 Diagnosis: T1b, N0, M0- R breast, Tumor 9 mm, Grade 2, Margins negative, Negative LVI, 2 SNL negative, ER and MA >95% positive, Her2 IHC 1+ Treatment History: [...] (mg/dL) Date Value 0 (more content not included)...[facility]-01-[facility] History of Present illness Narrative* Wallace Stone MD - 11/09/2022 2:00 PM EST Images from the original note were not included. PATIENT NAME: Harman Mcleod CLINIC NO.: [id number] ATTENDING PHYSICIAN: Wallace Stone MD DATE OF SERVICE: November 09, 2022 Dear No referring provider defined for this encounter. here is an update on a follow up visit on female Harman Mcleod at the clinic 11/09/2022 Diagnosis: T1b, N0, M0- R breast, Tumor 9 mm, Grade 2, Margins negative, Negative LVI, 2 SNL negative, ER and MA >95% positive, Her2 IHC 1+ Treatment History: [...] follow up. R Breast T1b,N0,M0- ER and MA >95% positive and Her-2 IHC 1+ tumor post Lumpectomy and SNL 10/2022. Reviewed path and she may skip radiation and also discussed hormonal; therapy with an AI and she will start Arimidex. Discussed adverse events and she wishes to proceed. Osteoporosis- On Prolia started 08/[address] Perry Vulvar high grade dysplasia- Follows Training Administrator Onc at [employer] and next appointment 11/24/2022 C[facility] R Leg swelling and pain and h/o PVD- refer to vascular HTN Thank you for the kind referral. If there are any questions and or concerns please do not hesitate to contact me at [phone]. Wallace Stone MD Hematology/Medical Oncology [facility] [place] spent a total of 30 minutes on the date of the service which included preparing to see the patient, [id number] patient care, completing clinical documentation, obtaining and/or reviewing separately obtained history, performing a medically appropriate examination, counseling and educating the pat ient/family/caregiver, and ordering medications, tests, or procedures. CC: MD Mateus Spicer MD documented in this encounterC[facility]02-08-2023 NoteOPERATIVE NOTE OPERATION DATE: 10/19/2022 PREOPERATIVE DIAGNOSIS: Right breast cancer. POSTOPERATIVE DIAGNOSIS: Right breast cancer. PROCEDURE: Needle localized right breast lumpectomy with sentinel lymph node biopsy. SURGEON: Iliana Gagnon M.D. ANESTHESIA: General laryngeal mask airway. LUNG PULLER: SADI Hammer ESTIMATED BLOOD LOSS: Less than [...] in good condition. CC: Mateus Perry M.D.[facility] [id number] NoteEXAMINATION: XR CHEST 2 V HISTORY: Pre-surgery [...] Electronically authenticated by: ALFONSO GEORGE Date: 2022-10-11 12:11[facility] NoteHNO ID: [id number] Author: Marcin Shah MD Service: ? Author Type: Physician Type: Progress Notes Filed: 2022 6:06 AM Note Text: Radiation Oncology - New Patient/Consult Note PATIENT NAME: Harman Mcleod PATIENT REQUESTING PHYSICIAN: Dr. 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 PATIENT IDENTIFICATION: This patient was seen in the Department of Radiation Oncology at the [facility] with Marcin Shah MD. She was accompanied today by her family. Final recommendations will be communicated back to the requesting physician by way of the shared medical record, or letter to requesting physician via US mail. HISTORY OF PRESENT ILLNESS: Ms. Mcleod is an 82-year-old woman from [place], [place] who was discovered on screening mammogram from July 2022 to have an abnormality within the anterior upper outer quadrant of the right breast. This was confirmed on ultrasound and she underwent stereotactic biopsy on 08/19/2022 with pathology revealing intermediate grade IDC that was ER/MA positive HER2 negative. She has met with [...] acetaminophen (TYLENOL EXTRA STRENGTH (more content not included)...[facility] History of Present illness Narrative* Marcin Shah MD - 09/22/2022 11:38 PM EST Images from the original note were not included. Radiation Oncology - New Patient/Consult Note PATIENT NAME: Harman Mcleod PATIENT Signed: Marcin Shah MD I spent a total of 60 minutes on the date of the service which included preparing to see the patient, [id number] patient care, and counseling and educating the patient/family/caregiver. This document has been created with the use of voice recognition technology. It may contain inaccuracies, misspellings, inaccurate syntax or inappropriate word context that are a result of the inadequacies/shortcomings of said technology/software. documented in this encounterC[facility]-12-[facility]23 NoteHNO ID: [id number] Author: Wallace Stone MD Service: ? Author Type: Physician Type: Progress Notes Filed: 09/22/2022 5:19 PM Note Text: PATIENT NAME: Harman Mcleod CLINIC NO.: [id number] ATTENDING PHYSICIAN: Wallace Stone MD DATE OF [...] provisional grade 1 through 2, ER and MA greater than 95% positive, HER2/holden negative with an IHC score of 1+ and FISH negative at [facility]. This patient was subsequently referred to Dr. Iliana Gagnon for surgical consultation. Patient denies any previous history of abnormal mammograms and or breast biopsy. She has had a recent bone density in [place] and was diagnosed with osteoporosis and started on Prolia as well. Patient has a sister who was diagnosed with breast cancer at the age of 82 and her daughter diagnosed with breast cancer at the age of 37. She quit smoking approximately 4 years ago. 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 She [...] mouth daily at bedtime. Cut in half Huqxm-1-JRO-EPA-Fish Oil 1,000 mg (120 mg-180 mg) cap [...] mellitus, type 2) (HCC) (more content not included)...[facility]01-12-2023 History of Present illness Narrative* Wallace Stone MD - 09/22/2022 5:10 PM EST Images from the original note were not included. PATIENT NAME: Harman Mcleod CLINIC NO.: [id number] ATTENDING PHYSICIAN: Wallace Stone MD DATE OF [...] provisional grade 1 through 2, ER and MA greater than 95% positive, HER2/holden negative with an IHC score of 1+ and FISH negative at [facility]. This patient was subsequently referred to Dr. Iliana Gagnon for surgical consultation. Patient denies any previous history of abnormal mammograms and or breast biopsy. She has had a recent bone density in [place] and was diagnosed with osteoporosis and started on Prolia as well. Patient has a sister who was diagnosed with breast cancer at the age of 82 and her daughter diagnosed with breast cancer at the age of 37. She quit smoking approximately 4 years ago. 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 She [...] mouth daily at bedtime. 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 Harman Mcleod [facility], ifthere are any questions or concerns please do not hesitate to contact me at the number below. Wallace Stone M.D. Hematology/Medical Oncology [facility] [phone] CC: MD Mateus Spicer MD I spent a total of 60 minutes on the date of the service which included preparing to see the patient, [id number] patient care, completing clinical documentation, obtaining and/or reviewing separately obtained history, performing a medically appropriate examination, counseling and educating the pat ient/family/caregiver, ordering medications, tests, or procedures, and communicating with other HCPs (not separately reported). documented in this encounterC[facility]01-12-2023 Miscellaneous Notes* Telephone Encounter - Lars [...] involved. Lars Wilkerson RN documented in this encounterCleveland Clinic Medina Hospital12-30-2022 NoteChief Complaint consultation for right breast [...] biopsy that r evealed invasive ductal carcinoma, ER/MA +; Her2 holden negative; patient denies change [...] gms IV prior to OR SCDs Ordered: [facility] External Ambulatory Referral [facility] External Ambulatory Referral 2. Chronic anticoagulation (Z79.01: [facility] (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) hold Eliquis 2 days prior to surgery, if ok with Cardiology. 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 Garza. documented in this encounterHARRINGTON [facility]ITALL[facility] Class Phone: [phone]) 926-868610-18-2022 Hospital Discharge instructions* Discharge Instructions* Brody Ken [...] urinate call your doctor documented in this encounterHARRINGTON MEMORIAL [facility]PITALLanguage Learning Class Phone: [phone]) 686-991404-04-2022 History of Present illness Narrative* Brody Ken [...] Plunkett MD - 12/13/2021 2:12 PM EDT Training Administrator Oncology Attending Note Patient seen and evaluated [...] chart for or 12/13/21 documented in this [facility] Phone: 1(952) 729-772104-04-2022 Evaluation note* Diagnosis Vaginectomy w/ Cysto 4/4/22- Primary Other postprocedural status documented in this encounter [facility] Phone: 1(398) 855-291104-04-2022 Hospital Discharge instructions* Instructions* Brody Ken RN [...] of: May 19, 2021 Content Version: 13.2 .[employer]. Care instructions adapted under license by [employer]. If you have questions about a medical condition or this instruction, always ask your healthcare professional. [employer] disclaims any warranty or liability for your [...] urinate call your doctor documented in this [facility] [employer] Work Phone: 1(813) 704-294103-28-2022 History of Present illness Narrative* YANA Wallis [...] Disease: Yes, stents x 3, Dr. Keyes ([facility]) Hypertension: yes Active smoker: Quit 2017, [...] pcp potassium 3.3,wbc 12.6 documented in this [facility] Phone: [phone]) 707-397303-25-2022 Hospital Discharge instructions* Instructions* Yoanna Diaz, YANA [...] drive you home after your procedure. Your local delivery truck driver must be 18 years of [...] questions, call the Pre-Admission Testing Unit at [phone]. Day of Surgery/Procedure As a patient at [facility] you can expect quality medical and nursing care that is centered on your individual needs. Our goal is to make your surgical experience as comfortableas possible . Directions to the Surgery Center [facility] is located at [address] [place] [address]. Please pull into the Emergency parking lot and stop at the trouble tracer richards. We offer free trouble tracer service for all our surgery patients, if you choose not to have trouble tracer parking we have additional parking across the street.You will enter the facility following the [facility] sign. Please stop at the diagnostic tech desk where you will be checked in by the staff. If you have any questions please call [phone]. Transportation after your procedure. You will need a friend or family member to drive you home after your procedure. 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 Howe your teeth but do not swallow water. [...] or the day of surgery, please call [phone], or [phone] documented in this [facility] Work Phone: 1(430) 850-933410-05-2021 History of Present illness Narrative* Parvin Rogel RN - 06/15/2021 10:[address] Kamla gan, pt cleared for phase II * Alla Dickerson DO - 06/15/2021 9:42 AM EDT OB Resident Progress Note Patient may be discharged home once she has met criteria in the PACU. Please perfect serve or page SWING SAW OPERATOR resident listed below with any questions, concerns, or if patient has not met PACU discharge criteria in 2-3 hours. . Please page first. Alla Dickerson DO SWING SAW OPERATOR Resident PGY3 Pager: [phone] [facility] 06/15/2021, 9:42 AM documented in this [facility] system[facility] Phone: [phone] 924-413910-04-2021 Hospital Discharge instructions* Instructions* Alla Dickerson DO [...] cleared by your physician documented in this [employer] Phone: [phone]) 213-622609-01-2021 Hospital Discharge instructions* Instructions* Na Cabezas APRN - DISPLAY CARVER - 05/12/2021 Pre-operative Instructions Please arrive at [...] public transportation ALONE is not acceptable. -Your local delivery truck driver must be 18 years of [...] Day of Surgery/Procedure As a patient at [facility] you can expect quality medical and nursing care that is centered on your individual needs. Our goal is to make your surgical experience as comfortableas possible . Directions to the Surgery Center [facility] is located at [address] [place] [address]. Please pull into the Emergency/Surgery Center parking lot and stop at the trouble tracer richards. We offer free trouble tracer service for all our surgery patients, if you choose not to have trouble tracer parking we have additional parking across the [...] pharmacy bottles in a zip lock bag. Howe your teeth but do not swallow water. [...] DAY OF your surgery, you may call [phone] documented in this [employer] Phone: 1(284) 855-739709-01-2021 History of Present illness Narrative* Mandy Baker [...] Pedal edema Pneumonia PVD (peripheral vascular disease) ([facility]) Thyroid disease Under care of team 05/12/2021 dr Perry [facility]-last visit apr 2021 Under care of team 05/12[facility] Varicose vein of leg Patient was evaluated in [facility] & anesthesia guidelines were applied. NPO guidelines, medication instructions and scheduled arrival time were reviewed with patient. Anesthesia contacted: Yes I spoke with Dr. Rondon. Patient history and pertinent findings reviewed. Patient with history of CAD, CHF, stress test and cardiac echo (results not in Epic, from outside provider), cardiac stentx 3. 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 On Eliquis and aspirin prescribed from her pulpwood contractor. Medical or cardiac clearance ordered: cardiac FERNY Andres CNP 05/12/21 2:43 PM documented in [facility] Work Phone: evaluation + Plan noteGeneral Surgery [place] Evaluation + Plan note Future Appointments Appointment Date:11/08/2022 02:00:00 PM Scheduled Provider:Iliana GAGNON MD Location:[facility] Appointment Type:[place] [address] General Surgery [place] Evaluation + Plan note Future Appointments Appointment Date:11/22/2022 01:40:00 PM Scheduled Provider:Iliana GAGNON MD Location:[facility] Appointment Type: Established 15 General Surgery [place] Evaluation note* Diagnosis Pre-op chest exam Pre-operative respiratory examination documented in this encounter [facility] Phone: [email or web address] note* Diagnosis S/p Partial vaginectomy with Ultrasonic Scalpel 06/15/21- 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, 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 documented in this encounter [facility] Phone: [email or web address] note* Diagnosis Pre-op chest exam Pre-operative respiratory examination documented in this encounter [facility] 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 documented in this encounter [employer] Phone: [email or web address] note* Diagnosis 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, estrogen receptor positive (HCC)- Primary [facility] encounter [facility]* Diagnosis 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 breast in female, estrogen receptor positive (HCC)- Primary [facility] in this encounter [facility]* Diagnosis 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, estrogen receptor positive (HCC)- Primary Claudication in peripheral vascular disease (HCC) Peripheral vascular disease, unspecified documented in this encounter [facility] Hospital[facility] noteNo assessment information [facility] Work Phone: Evaluation noteNo InformationNort Weotta 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, estrogen receptor positive (HCC)- Primary Rash Rash and other nonspecific skin eruption Other eczema Stage 3a chronic kidney disease (HCC) documented in this encounter [facility]* Diagnosis Malignant neoplasm of areola of [...] veins of both legs with edema acute [facility] Work Phone: Evaluation note* Diagnosis Onset Date Resolution Status Altered mental status acute Diabetes mellitus acute Edema of both lower legs acu te Inflammation acute Leg ulcer, left acute Leg wound, right acute Open wound of left thigh acu te PAD (peripheral artery disease) acute Uses walker acute Varicose veins of both legs with edema acute [facility] Work Phone: Evaluation note* Diagnosis Hav (hallux abducto valgus), left- Primary Venous insufficiency Unspecified venous (peripheral) insufficiency Acquired deformity of left toe 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 to underlying condition with diabetic polyneuropathy, 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 intermediate accountant insulin use ([facility]) Pain due to onychomycosis of toenails of both feet [facility] Diagnosis 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)- Primary Diabetes mellitus due to underlying condition with diabetic polyneuropathy, 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 senior care insulin use (CMS/HCC) Pain due to onychomycosis of toenails of both feet Venous insufficiency Unspecified venous (peripheral) insufficiency Neoplasm of uncertain behavior of skin documented in this encounter [facility] HealthcareHistory general Narrative - Reported* Type Description Date Medical History DIABETES Medical History HTN Medical History ASTHMA Medical History 3 HEART STENT AND 1 LEG Medical History HYPERLIPIDEMIA Medical History HYPOTHYROID Medical History PAD Surgical History STENT PLACEMENTS Surgical History PSEUDO ANURYSM Surgical History BLADDER SUSPENSION Surgical History HYSTERECTOMY Surgical History RLE & RT RENAL DSA'S, ANGIOPLAS TIES & STENTING 04-25-2019 [facility] Other History general Narrative - Reported* Type [...] History VAGINAL ABLASION OF CANCER CELL S [facility] Other Hospital course Narrative No data available for this section [facility] Discharge instructions No data available for this section General Surgery [place] Progress note No data available for this section General Surgery [facility] Reason for referral (narrative) Referred by: Iliana GAGNON MD Referred by: Iliana GAGNON MD General Surgery [facility] for referral (narrative)* Diagnostic Procedure Only (Routine) - Pending Review Specialty Diagnoses / Procedures Referred By Jacinta fernandez Referred To Contact [facility] Diagnoses 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, estrogen receptor positive (HCC) Procedures [facility] DI[facility]STIC BILATERAL DIAGNOSTIC MAMMOGRAPHY COMPUTER-AIDED DETCJ Winnie Guzmán PA-C [address] [place] [address] [place] [address] [facility] [address] [place] [address] Referral ID Status Reason Start Date Expiration Date Visits Requested Visits Authorized [id number] Pending Review Auto-Generat ed Referral 3 07/19/2024 1 1 [facility] for visit Narrative* Auth/Cert Specialty Diagnoses / Procedures Referred By Jacinta fernandez Referred To Contact Diagnoses Vaginal dysplasia VAGINAL DYSPLASIA Procedures MA OFFICE/OUTPT VISIT,PROCEDURE ONLY MA COMPLETE REMOVAL OF VAGINA WALL MA CYSTOURETHROSCOPY CYSTOSCOPY, VAGINECTOMY Emma Garza MD [address] [facility] [address] [place] [address] [employer] [address] [place] [address] Referral ID Status Reason Start Date Expiration Date Visits Re quested Visits Authorized [id number] 1 1 [facility] Phone: Summary Purpose Family History No Family History Records Found Relationship Condition Age at Onset Recorded Date/T josephine father Unknown mother Unknown Advance Directives No Advanced Directives Records FoundLatest Code Status on File Code Status Date Activated Date Inactivated Comments Full Code 06/28/2022 6:57 AM Documents on File Type Date Recorded Patient Overnight Stocker Expl anation Advance Directive(s) 01/16/2017 3:59 PM Documents on File Type Date Recorded Patient Overnight Stocker Expl anation Advance Directive(s) 01/16/2017 3:59 PM [...] [address] [place] [address] Specialty Diagnoses / Procedures Referred By Contac t Referred To Contact Cardiology Diagnoses Pre-op chest exam Procedures EKG 12 lead Kimmie, Lat[place], PA-C [address] [place] [address] Referral ID Status Reason Start Date Expiration Date Visits Re quested Visits Authorized [id number] Open 11/22/2021 11/22/2022 1 1 Specialty Diagnoses / Procedures Referred By Contac t Referred To Contact Vascular Surgery Diagnoses Claudication in peripheral vascular disease (HCC) Procedures CONSULT TO VASCULAR SURGERY OFFICE/OUTPATIENT [facility] 60-74 MINUTES Wallace Stone MD [address] [place] [address] Referral ID Status Reason Start Date Expiration Date Visits Requested Visits Authorized [id number] Authorized PCP Requested Referral 11/16/2022 11/09/2023 1 1 Specialty Diagnoses / Procedures Referred By Contac t Referred To Contact Dermatology Diagnoses Rash Other eczema Procedures CONSULT TO DERMATOLOGY OFFICE/OUTPATIENT [facility] 60-74 MINUTES Wallace Stone MD [address] [place] [address] Referral ID Status Reason Start Date Expiration Date Visits Requested Visits Authorized [id number] Authorized PCP Requested Referral 02/14/2023 02/14/2024 1 [...] DATE CREATED AUTHOR 02/05/2021 [facility] DATE CREATED AUTHOR AUTHOR'S ORGANIZ ATION 01/22/2023 [facility] DATE CREATED AUTHOR AUTHOR'S ORGANIZ ATION 06/22/2023 [facility] DATE CREATED AUTHOR AUTHOR'S ORGANIZ ATION 06/23/2023 [facility] DATE CREATED AUTHOR AUTHOR'S ORGANIZ ATION 07/13/2023 [facility] DATE CREATED AUTHOR AUTHOR'S ORGANIZ ATION 05/03/2024 [facility] DATE CREATED AUTHOR AUTHOR'S ORGANIZ ATION 09/01/2024 [facility] EPIC DATE CREATED AUTHOR AUTHOR'S ORGANIZ ATION 09/05/2024 [facility] Reason for Visit (unrecogniz ed section and content) Status Reason Specialty Diagnoses / Procedures Re ferred By Contact Referred To Contact Diagnoses 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 Procedures MA REMOVE VAGINA WALL, PARTIAL MA COLPOSCOPY,CERVIX W/ADJ VAGINA PARTICAL VAGINECTOMY WITH ULTRASONIC SCAPEL VAGINAL COLPOSCOPY WITH MICROSCOPE Kin Abarca MD [address] [facility] [address] [place] [address] [facility] Specialty Diagnoses / Procedures Referred By Contac t Referred To Contact Diagnoses Vaginal dysplasia VAGINAL DYSPLASIA Procedures MA OFFICE/OUTPT VISIT,PROCEDURE ONLY MA DESTRUCT,VAGINAL LESION(S),SIMPLE CO2 LASER VAPORIZATION OF LESIONS ([facility] CONF# [id number] - JEREMIAS) Emma Garza MD [address] [facility] [address] [place] [address] [facility] [address] [place] [address] Referral ID Status Reason Start Date Expiration Date Visits Re quested Visits Authorized [id number] 1 1 Reason Comments Care Coordination Surgery [...] 25 g 1 06/28/2022 bacitracin-polymyxin b (POLYSPORIN) [id number] UNIT/GM ointment Apply topically 2 times daily. [...] g 0 06/28/2022 06/28/2022 bacitracin-polymyxin b (POLYSPORIN) [id number] UNIT/GM ointment Apply topically 2 times daily. [...] Attending Provider Active art: March 26, 2024 Oil [employer] Washer Relationship Specialty Start Date End Date Mateus Perry MD [address] [place] [facility] [place] [address] PCP - General Family Medicine 03/04/21 Oil [employer] Washer Relationship Specialty Start Date End Date Mateus Perry MD [address] [place] [facility] [place] [address] PCP - General Family Medicine 03/04/21 Oil Rag Washer Relationship Specialty Start Date End Date Mateus Perry MD [address] [place] [facility] [place] [address] PCP - General Family Medicine 03/04/21 Oil Rag Washer Relationship Specialty Start Date End Date Mateus Perry MD [address] [place] [facility] [place] [address] PCP - General Family Medicine 03/04/21 Oil Rag Washer Relationship Specialty Start Date End Date Mateus Perry MD PCP - General Family Medicine 01/05/17 Oil Rag Washer Relationship Specialty Start Date End Date Mateus Perry MD PCP - General Family Medicine 01/05/17 Oil Rag Washer Relationship Specialty Start Date End Date Mateus Perry MD PCP - General Family Medicine 01/05/17 Oil Rag Washer Relationship Specialty Start Date End Date Mateus Perry MD PCP - General Family Medicine 01/05/17 Oil Rag Washer Relationship Specialty Start Date End Date Mateus Perry MD PCP - General Family Medicine 01/05/17 Oil Rag Washer Relationship Specialty Start Date End Date Mateus Perry MD PCP - General Family Medicine 01/05/17 Oil Rag Washer Relationship Specialty Start Date End Date Mateus Perry MD [address] [place] [address] PCP - General Family Medicine 03/04/21 Team Status: Inactive Member Role Status Dates Mateus Perry MD Primary Care Provider Active Christiano Gonzales MD Attending Provider Active [employer] Washer Relationship Specialty Start Date End Date Mateus Perry MD PCP - General Family Medicine 01/05/17 Oil Rag Washer Relationship Specialty Start Date End Date Mateus Perry MD PCP - General Family Medicine 01/05/17 Team Status: Inactive Member Role Status Dates Mateus Perry MD Primary Care Provider Active Start: May 01, 2024 End: May 01, 2024 Christiano Gonzales MD Attending Provider Active Start: May 01, 2024 End: May 01, 2024 Oil Rag Washer Relationship Specialty Start Date End Date Mateus Perry MD [address] [place] [address] PCP - General Family Medicine 02/14/24 Oil Rag Washer Relationship Specialty Start Date End Date Mateus Perry MD [address] [place] [address] PCP - General Family Medicine 02/14/24 Oil Rag Washer Relationship Specialty Start Date End Date Mateus Perry MD [address] [place] [address] PCP - General Family Medicine 02/14/24 Oil Rag Washer Relationship Specialty Start Date End Date Mateus Perry MD [address] [place] [address] PCP - General Family Medicine 02/14/24 Source Comments (unrecognize d section and content) In the event this informatio n is protected by the Federal Confidentiality of Alcohol and Drug Abuse Patient Records regulations: The Federal rules restrict any use of the information to criminally investigate or prosecute any alcohol or drug abuse patient.[facility] the event this information is protected by the Federal Confidentiality of Alcohol and Drug Abuse Patient Records regulations: The Federal rules restrict any use of the information to criminally investigate or prosecute any alcohol or drug abuse patient.[facility] the event this information is protected by the Federal Confidentiality of Alcohol and Drug Abuse Patient Records regulations: The Federal rules restrict any use of the information to criminally investigate or prosecute any alcohol or drug abuse patient.[facility] the event this information is protected by the Federal Confidentiality of Alcohol and Drug Abuse Patient Records regulations: The Federal rules restrict any use of the information to criminally investigate or prosecute any alcohol or drug abuse patient.[facility] the event this information is protected by the Federal Confidentiality of Alcohol and Drug Abuse Patient Records regulations: The Federal rules restrict any use of the information to criminally investigate or prosecute any alcohol or drug abuse patient.[facility] the event this information is protected by the Federal Confidentiality of Alcohol and Drug Abuse Patient Records regulations: The Federal rules restrict any use of the information to criminally investigate or prosecute any alcohol or drug abuse patient.[facility] the event this information is protected by the Federal Confidentiality of Alcohol and Drug Abuse Patient Records regulations: The Federal rules restrict any use of the information to criminally investigate or prosecute any alcohol or drug abuse patient.[facility] the event this information is protected by the Federal Confidentiality of Alcohol and Drug Abuse Patient Records regulations: The Federal rules restrict any use of the information to criminally investigate or prosecute any alcohol or drug abuse patient.[facility] Goals (unrecognized section and content) Goals [...] BE BASED ON THE PRIMARY CLINICAL RECORDS. [facility] [employer] [facility]. provides no warranty or guarantee of the accuracy or completeness of information in this document.
[2024-09-05 20:56] LABS: Lactate/Lactic Acid 1.3 mmol/L (0.4-2.0)
[2024-09-05] MEDS: APIXABAN 5 MG TABLET 2.5 MG PO (22:02)
[2024-09-05] MEDS: 0.9 % SODIUM CHLORIDE 1,000 ML 100 ML IV (22:02)
[2024-09-05] MEDS: HYDRALAZINE HCL 50 MG TABLET PO (22:02)
[2024-09-05 22:12] LABS: Glucometer 126 mg/dL (74-106)
[2024-09-05] MEDS: ATORVASTATIN CALCIUM 20 MG TABLET PO (22:20)
[2024-09-06] VITALS (14 sets, daily range): BP systolic 122–158; BP diastolic 57–82; PULSE 74–79; TEMP 36.6–36.8; O2SAT 90–94
[2024-09-06] MEDS: HYDRALAZINE HCL 50 MG TABLET PO (05:41)
[2024-09-06] MEDS: PIPERACILLIN SODIUM/TAZOBACTAM 3.375 GM in 0.9 % SODIUM CHLORIDE 50 ML IV ×2 (05:41→15:05)
--- OUTSIDE RECORDS SUMMARY | 2024-09-06 06:23 | XMS_ITS | CCD ---
Author Organization [facility] Care Team Providers Care Stripper Black And White Name Role Phone Mateus Perry MD Primary Care Provider Mateus Perry Primary Care Physician Mateus Perry MD Primary Care Provider [phone] [phone] Perry MD Primary Care Provider [phone] MD Mateus Perry Primary Care Provider [phone] MD Christiano Gonzales Attending Provider [phone] Christiano Gonzales Unavailable Millie Storm Unavailable SONALI [...] ALFONSO Ramirez Consulting Unavailable NILL ., DR BRARIENTOS Consulting Unavailable SONALI MCKINNEY Admitting Unavailable SONALI [...] HANK, SONALI Attending Unavailable HOY ., DR IGNACOI Primary Care Unavailable HANK, SONALI Consulting Unavailable [...] Unavailable HOY ., DR IGNACIO Consulting Unavailable [place], DR JUDSON Plunkett Consulting Unavailable MISC, DR [...] HOY ., DR IGNACIO Primary Care Unavailable [place], DR JUDSON Plunkett Consulting Unavailable NILL ., [...] Unavailable HOY ., DR IGNACIO Consulting Unavailable [place], DR JUDSON Plunkett Consulting Unavailable HOY ., [...] Care Provider [phone] FERNY Mathews Attending Provider [phone] MD Mateus Perry Primary Care Provider [phone] FERNY Mathews Attending Provider [phone] Mateus Perry Primary Care Unavailable Bisi, Janell [...] 3 Other (See Comments), Intolerance, GI Upset [facility] (20 sources) Ciprofloxacin; Translations: [ciprofloxacin] Drug Allergy 8 Hives, Urticaria (disorder), Other: See Comments [facility] (20 sources) oxyCODONE; Translations: [oxycodone] Drug Allergy 9 Rash, Itching (finding) [facility] (19 sources) cefdinir; Translations: [cefdinir] Drug Allergy 3 Vomiting (disorder), Other: See Comments, Vomiting, Other (See Comments) [facility] (11 sources) traMADol; Translations: [TRAMADOL] Drug Allergy 3 Mental Status Change, Other (See Comments) [facility] (1 source) Cefuroxime Drug Allergy 2 [facility] [email or web address] Work Phone: (5 sources) Acetaminophen; Translations: [acetaminophen] Drug Allergy 9 [facility] (2 sources) Acetaminophen / oxyCODONE Drug Allergy 3 [facility] (1 source) Cefuroxime Drug Allergy 2 [facility] (2 sources) Ciprofloxacin Drug Allergy [facility] (1 source) cefdinir Drug Allergy 4 [facility] (1 source) Ciprofloxacin Drug Allergy 4 [facility] (1 source) oxyCODONE Drug Allergy 4 [facility] (1 source) traMADol Drug Allergy 4 [facility] Medications Current Medications Medication Drug [...] Polymyxin-class Antibacterial Start: End: bacitracin-polymyxin b (POLYSPORIN) 500-01084 UNIT/GM ointment Apply topically 2 times daily. [...] take 1 capsule by mouth twice daily [place] 3 1000 MG CAPS Take 1,000 mg by mouth 2 times daily 0 Active End: 05-12-2021 take 1 capsule by mouth once daily [place]-3 Fatty Acids (FISH OIL OMEGA-3) 1000 MG CAPS Take 1,000 mg by mouth daily 0 05/12/2021 Discontinued docusate sodium 50 mg / sennosides, detention 8.6 mg oral tablet (2 sources) Start: [...] take 2 tablets by mo [facility] once daily Cytomel 5 mcg Tab 10 mcg = 2 tab(s), Oral, Daily, Refills(s) 0 Start Date: 09/02/22 Status: Ordered take 2 tablets by mo [facility] once daily liothyronine (Cytomel) 5 MCG tablet [...] sources) Polyene Antifungal Start: 06-28-2022 nystatin (MYCOSTATIN) 391460 UNIT/GM powder Apply 3 times daily. 60 g 10 06/28/2022 Active nystatin (MYCOST ATIN) 111260 UNIT/GM powder Apply topically 2 times daily as needed 0 Active Mubql-7m-Ppb-Epa-Fish Oil ([place]ville-3 Fish Oil) 300-1,000 mg Capsule (4 sources) Start: 04-25-2019 Wocnt-6y-Kob-Epa-Fish Oil ([place]-3 Fish Oil) 300-1,000 mg Capsule Active 2 [...] Take 2 tablets by mo [facility] every 6 hours as needed for Pain. 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 oral hypoglycemic drugs; Translations: [JAIL USE ORAL HYPOGLYCEMIC DX] Onset: 11-03-2022 Episodic Other aftercare (1 source) Other alf (current) drug therapy; Translations: [OTH JAIL CURRENT DRUG THERAPY] Onset: 11-03-2022 Episodic Other [...] Onset: 08-13-2022 Episodic Other aftercare (1 source) 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; Translations: [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] Onset: 08-25-2022 Episodic [...] Range Facility Office Visiton 09-02-2024 Follow-up visit [id number] McleodHarman 1940 F Date Provider Department Center 09/02/2024 BRIAN FLANNERY [facility]AS Family History Problem Relation Age of Onset Stroke Mother Coronary artery disease Father Heart attack Father Family Status - Relation Status Age at Mother Father Level of Service:28139 [place] OFFICE/OUTPATIENT ESTABLISHED SF MDM 10 MIN Normal [facility] Office Visiton 08-27-2024 Follow-up visit [id number] McleodHarman 1940 F Date Provider Department Center 08/27/2024 BRIAN FLANNERY [facility] Family History Problem Relation Age of Onset Stroke Mother Coronary artery disease Father Heart attack Father Family Status - Relation Status Age at Mother Father Level of Service:32018 [place] OFFICE/OUTPATIENT ESTABLISHED LOW MDM 20 MIN Normal [facility] HPon 08-12-2024 [facility] Electrophysiology Consult Note [place] Cardiology [facility] Reason for visit: Afib 08/12/24 Pt had CYLINDER GRINDER on 07/10/24 and now presents for AVN [...] in A-fib. She was just discharged from [facility] for GI bleed. Eliquis and aspirin have [...] Diagnosis Date Abnormal ECG Arrhythmia Atrial fibrillation ([facility]) CAD (coronary artery disease) Cancer ([facility]) CHF (congestive heart failure) ([facility]) Chronic kidney disease COPD (chronic obstructive pulmonary disease) ([facility]) Diabetes mellitus ([facility]) GI bleed Heart murmur Hyperlipidemia Hypertension PVD (peripheral vascular disease) ([facility]) PSH: Past Surgical History: Procedure Laterality Date CARDIAC CATHETERIZATION 12/15/2011, 08/23/2010, 12/30/2004, CORONARY STENT PLACEMENT HYSTERECTOMY 03/11/2005 VASCULAR SURGERY SH: Social Determinants of Health Tobacco Use: Medium Risk (06/20/2024) [facility] Patient History Smoking Tobacco Use: Former Smokeless Tobacco Use: Never Passive Exposure: Not on file Alcohol Use: Not on file Financial Resource Strain: Not on file Food Insecurity: Not on file Transportation Needs: Not on file Physical Activity: Not on file Stress: Not on file Social Connections: Not on file Intimate Partner Violence: Unknown (11/02/2023) [place] Safety & Environment Fear of Current or Ex-Partner: Not on file Emotionally Abused: Not on file Physically Abused: Not on file Sexually Abused: Not on file Physically or Sexually Abused: Not on file Depression: Not at risk (02/14/2023) [facility] PHQ-2 PHQ-2 score: 0 Housing Stability: [...] mouth two times daily. fish oil concentrate (Greenville-3) 120-180 mg capsule Take 1,000 mg by [...] mouth in th (more content not included)... [facility] NURSNOTEon 08-12-2024 NURSNOTE RN educated pt on [...] off of unit with all of belongings. [facility] 36on 07-18-2024 36 Patient's significan t toya (Sreekanth) called the office to confirm Harman has been taking 100mg of metoprolol once a day. She has 200mg tablets. I advised him - per Dr. Lamb- to make sure she's taking 100mg bid. She will take half tablet bid. Sreekanth verbalized understanding. [facility] Office Visiton 07-17-2024 Follow-up visit [id number] Harman Mcleod 1940 F Date Provider Department Center 07/17/2024 [id number]-GZDLAYRENEE LAMB [facility] Family History Problem Relation Age of Onset Stroke Mother Coronary artery disease Father Heart attack Father Family Status - Relation Status Age at Mother Father Level of Service:16475 MI OFFICE/OUTPATIENT ESTABLISHED MOD MDM 30 MIN Reason for Visit and Comments: S/P PACEMAKER [Other] - HERE FOR A WOUND CHECK TODAY Atrial Fibrillation [80] - CHADSVASC score of 7 Coronary Artery Disease [187] Hypertension [260857] Edema [[id number]] - LEGS AND FEET ARE SWOLLEN TODAY, PT WANTS TO KNOW IF SHOULD GO BACK ON LASIX DAILY [facility] Orders Onlyon 07-17-2024 Orders Only [id number] Harman Mcleod 1940 F Date Provider Department Center 07/17/2024 JORGE LONG [facility] Family History Problem Relation Age of Onset Stroke Mother Coronary artery disease Father Heart attack Father Family Status - Relation Status Age at Mother Father Normal [facility] HP 07-10-2024 [facility] Electrophysiology Consult Note [place] Cardiology - [facility] Reason for visit: Afib HPI: [...] in A-fib. She was just discharged from [facility] for GI bleed. Eliquis and aspirin have [...] on file Intimate Partner Violence: Unknown (11/02/2023) [place] Safety & Environment Fear of Current or [...] mouth two times daily. fish oil concentrate ([place]-3) 120-180 mg capsule Take 1,000 mg by [...] tablet 3 spironolac (more content not included)... [facility] NURSNOTEon 07-10-2024 NURSNOTE RN educated pt on [...] off of unit with all of belongings. [facility] Office Visiton 07-02-2024 Follow-up visit [id number] Harman Mcleod 1940 Date Provider Department Center 07/02/2024 BRIAN FLANNERY CORI [facility]rozco Family History Problem Relation Age of Onset Stroke Mother Coronary artery disease Father Heart attack Father Family Status - Relation Status Age at Mother Father Level of Service:45466 MI OFFICE/OUTPATIENT NEW MODERATE MDM 45 MINUTES [facility] Orders Onlyon 07-02-2024 Orders Only [id number] Harman Mcleod 1940 Provider Department Center 07/02/2024 Chiara-WENDY WILL CARD [facility] Family History Problem Relation Age of Onset Stroke Mother Coronary artery disease Father Heart attack Father Family Status - Relation Status Age at Mother Father Normal [facility] Office Visiton 06-12-2024 Follow-up visit [id number] Harman Mcleod 1940 Date Provider Department Center 06/12/2024 LonnyMARCILIZETHJOSE MARIA SMITH [facility] Family History Problem Relation Age of Onset Stroke Mother Coronary artery disease Father Heart attack Father Family Status - Relation Status Age at Mother Father Level of Service:74517 MI OFFICE/OUTPATIENT ESTABLISHED HIGH MDM 40 MIN Normal [facility] 36on 06-10-2024 36 Pt informed hoys office updated Normal [facility] 37on 05-27-2024 37 Increase Zocor/simvastatin to 40 mg daily- from 20 mg for better cholesterol control Have blood drawn in 2-3 months for liver function and lipid levels- you must be fasting to have drawn Normal [facility] Office Visiton 05-27-2024 Follow-up visit [id number] Harman Mcleod 1940 Date Provider Department Center 05/27/2024 CHERYL MEYER [facility] Family History Problem Relation Age of Onset Stroke Mother Coronary artery disease Father Heart attack Father Family Status - Relation Status Age at Mother Father Level of Service:95975 MI OFFICE/OUTPATIENT ESTABLISHED LOW MDM 20 MIN Normal [facility] US ankle/arm indiceson 04-09 US ankle/arm indices [facility] [place] [address] Ultrasound Report Signed Patient: Harman Mcleod MR#: [id number] : 1940 Acct:[id number] Age/Sex: 83 / F ADM Date: 04/09/24 Loc: Room: Type: [facility] Attending Dr: Janell Mathews APRN Ordering [...] Christiano Gonzales MD04/09/2024 2:02 PM Dictation Location: [place] [address] Tech: Kaleigh Ortega Transcribed By: FRANCIA 04/09/24 1402 Dictated By: Christiano Gonzales MD 04/09/24 1401 Signed By: 04/09/24 1402 Normal [facility] [place] [address] Ultrasound Report Signed Patient: Harman Mcleod MR#: [id number] : 1940 Acct:[id number] Age/Sex: 83 / F ADM Date: 04/09/24 Loc: Room: Type: [facility] Attending Dr: Janell Mathews APRN Ordering [...] Christiano Gonzales MD04/09/2024 2:01 PM Dictation Location: [place] [address] Tech: Francesca Estrada Transcribed By: FRANCIA 04/09/24 1401 Dictated By: Christiano Gonzales MD 04/09/24 1359 Signed By: 04/09/24 1401 Normal [facility] Consultation Noteon 06-21-20 Consultation Note [id number] 0TIFF Normal [facility] CBC W Auto Differential pane l (Bld)on 06-20-2023 Basophils (Bld) [#/Vol] 0.03 10*3/uL Normal <0.11 [facility] Comment on above: Order Comment: Speci men Type: BLOOD SPECIMENOrdering Facility: [facility] Address: [address] [place] [address] Performed By: #### 5 7021-8 ####[facility] LABCLIA [id number] [place] [address] Basophils/100 WBC (Bld) 0.3 % Normal [facility] Comment on above: Order Comment: Speci men Type: BLOOD SPECIMENOrdering Facility: [facility] Address: [address] [place] [address] Performed By: #### 5 7021-8 ####[facility] LABCLIA [id number] [place] [address] Differential cell count method Nom (Bld) Auto Normal [facility] Comment on above: Order Comment: Speci men Type: BLOOD SPECIMENOrdering Facility: [facility] Address: [address] [place] [address] Performed By: #### 5 7021-8 ####[facility] LABCLIA [id number] [place] [address] Eosinophils (Bld) [#/Vol] 10*3/uL Normal <0.46 [facility] Comment on above: Order Comment: Speci men Type: BLOOD SPECIMENOrdering Facility: [facility] Address: [address] [place] [address] Performed By: #### 5 7021-8 ####[facility] LABCLIA [id number] [place] [address] Eosinophils/100 WBC (Bld) 0.2 % Normal [facility] Comment on above: Order Comment: Speci men Type: BLOOD SPECIMENOrdering Facility: [facility] Address: [address] [place] [address] Performed By: #### 5 7021-8 ####[facility] LABCLIA [id number] [place] [address] Erythrocyte distribution width (RBC) [Ratio] 14.4 % Normal 11.5-15.0 [facility] Comment on above: Order Comment: Speci men Type: BLOOD SPECIMENOrdering Facility: [facility] Address: [address] [place] [address] Performed By: #### 5 7021-8 ####[facility] LABCLIA [id number] [place] [address] Hematocrit (Bld) [Volume fraction] 34.9 % Low 36.0-46.0 [facility] Comment on above: Order Comment: Speci men Type: BLOOD SPECIMENOrdering Facility: [facility] Address: [address] [place] [address] Performed By: #### 5 7021-8 ####[facility] LABCLIA [id number] [place] [address] Hemoglobin (Bld) [Mass/Vol] 10.9 g/dL Low 11.5-15.5 [facility] Comment on above: Order Comment: Speci men Type: BLOOD SPECIMENOrdering Facility: [facility] Address: [address] [place] [address] Performed By: #### 5 7021-8 ####[facility] LABCLIA [id number] [place] [address] Immature granulocytes (Bld) [#/Vol] 0.11 10*3/uL High <0.10 [facility] Comment on above: Order Comment: Speci men Type: BLOOD SPECIMENOrdering Facility: [facility] Address: [address] [place] [address] Performed By: #### 5 7021-8 ####[facility] LABCLIA [id number] [place] [address] Immature granulocytes/100 WBC (Bld) 1.1 % Normal [facility] Comment on above: Order Comment: Speci men Type: BLOOD SPECIMENOrdering Facility: [facility] Address: [address] [place] [address] Performed By: #### 5 7021-8 ####[facility] LABCLIA [id number] [place] [address] Lymphocytes (Bld) [#/Vol] 1.97 10*3/uL Normal 1.00-4.00 [facility] Comment on above: Order Comment: Speci men Type: BLOOD SPECIMENOrdering Facility: [facility] Address: [address] [place] [address] Performed By: #### 5 7021-8 ####[facility] LABCLIA [id number] [place] [address] Lymphocytes/100 WBC (Bld) 19.3 % Normal [facility] Comment on above: Order Comment: Speci men Type: BLOOD SPECIMENOrdering Facility: [facility] Address: [address] [place] [address] Performed By: #### 5 7021-8 ####[facility] LABCLIA [id number] [place] [address] MCH (RBC) [Entitic mass] 29.9 pg Normal 26.0-34.0 [facility] Comment on above: Order Comment: Speci men Type: BLOOD SPECIMENOrdering Facility: [facility] Address: [address] [place] [address] Performed By: #### 5 7021-8 ####[facility] LABCLIA [id number] [place] [address] MCHC (RBC) [Mass/Vol] 31.2 g/dL Normal 30.5-36.0 [facility] Comment on above: Order Comment: Speci men Type: BLOOD SPECIMENOrdering Facility: [facility] Address: [address] [place] [address] Performed By: #### 5 7021-8 ####[facility] LABCLIA [id number] [place] [address] MCV (RBC) [Entitic vol] 95.6 fL Normal 80.0-100.0 [facility] Comment on above: Order Comment: Speci men Type: BLOOD SPECIMENOrdering Facility: [facility] Address: [address] [place] [address] Performed By: #### 5 7021-8 ####[facility] LABIA [id number] [place] [address] Monocytes (Bld) [#/Vol] 0.49 10*3/uL Normal <0.87 [facility] Comment on above: Order Comment: Speci men Type: BLOOD SPECIMENOrdering Facility: [facility] Address: [address] [place] [address] Performed By: #### 5 7021-8 ####[facility] LABIA [id number] [place] [address] Monocytes/100 WBC (Bld) 4.8 % Normal [facility] Comment on above: Order Comment: Speci men Type: BLOOD SPECIMENOrdering Facility: [facility] Address: [address] [place] [address] Performed By: #### 5 7021-8 ####[facility] LABIA [id number] [place] [address] Neutrophils (Bld) [#/Vol] 7.59 10*3/uL High 1.45-7.50 [facility] Comment on above: Order Comment: Speci men Type: BLOOD SPECIMENOrdering Facility: [facility] Address: [address] [place] [address] Performed By: #### 5 7021-8 ####[facility] LABCLIA [id number] [place] [address] Neutrophils/100 WBC (Bld) 74.3 % Normal [facility] Comment on above: Order Comment: Speci men Type: BLOOD SPECIMENOrdering Facility: [facility] Address: [address] [place] [address] Performed By: #### 5 7021-8 ####[facility] LABCLIA [id number] [place] [address] Nucleated RBC (Bld) [#/Vol] 10*3/uL Normal <0.01 [facility] Comment on above: Order Comment: Speci men Type: BLOOD SPECIMENOrdering Facility: [facility] Address: [address] [place] [address] Performed By: #### 5 7021-8 ####[facility] LABCLIA [id number] [place] [address] Nucleated RBC/100 WBC (Bld) [Ratio] 0.0 /100 WBC Normal [facility] Comment on above: Order Comment: Speci men Type: BLOOD SPECIMENOrdering Facility: [facility] Address: [address] [place] [address] Performed By: #### 5 7021-8 ####[facility] LABCLIA [id number] [place] [address] Platelet mean volume (Bld) [Entitic vol] 9.3 fL Normal 9.0-12.7 [facility] Comment on above: Order Comment: Speci men Type: BLOOD SPECIMENOrdering Facility: [facility] Address: [address] [place] [address] Performed By: #### 5 7021-8 ####[facility] LABCLIA [id number] [place] [address] Platelets (Bld) [#/Vol] 275 10*3/uL Normal 150-400 [facility] Comment on above: Order Comment: Speci men Type: BLOOD SPECIMENOrdering Facility: [facility] Address: [place] [address] Performed By: #### 5 7021-8 ####[facility] LABIA [id number] [place] [address] RBC (Bld) [#/Vol] 3.65 10*6/uL Low 3.90-5.20 [facility] Comment on above: Order Comment: Speci men Type: BLOOD SPECIMENOrdering Facility: [facility] Address: [place] [address] Performed By: #### 5 7021-8 ####[facility] LABIA [id number] [place] [address] WBC (Bld) [#/Vol] 10.21 10*3/uL Normal 3.70-11.00 [facility] Comment on above: Order Comment: Speci men Type: BLOOD SPECIMENOrdering Facility: [facility] Address: [address] [place], [place] [address] Performed By: #### 5 7021-8 ####[facility] LABIA [id number] [place] [address] CNOVSPon 06-20-2023 OVS Visit (SP) Office ([facility]) HARMAN MCLEOD ([id number]) 1940 F Date Time Provider Department 06/20/23 2:30 PM WINNIE GUZMÁN During your visit today, we recorded the following information about you: Temperature Pulse Respiration Blood pressure 97.4 degrees 72/minute 16/minute 138/55 Weight Height 84.6 kg 1.549 m Winnie Guzmán PA-C 06/20/2023 3:58 PM Signed PATIENT NAME: Harman Mcleod CLINIC NO.: [id number] ATTENDING PHYSICIAN: Wallace Stone MD DATE OF [...] Negative LVI, 2 SNL negative, ER and MI >95% positive, Her2 IHC 1+ Treatment History: [...] 06/20/2023 1.77 (more content not included)... Normal [facility] Comprehensive metabolic 2000 panelon 06-20-2023 Albumin [Mass/Vol] 4.0 g/dL Normal 3.9-4.9 [facility] Comment on above: Order Comment: Speci men Type: BLOOD SPECIMENOrdering Facility: [facility] Address: [address] [place] [address] Performed By: #### 2 4323-8 ####[facility] LABCLIA [id number] [place] [address] ALP [Catalytic activity/Vol] 72 U/L Normal 34-123 [facility] Comment on above: Order Comment: Speci men Type: BLOOD SPECIMENOrdering Facility: [facility] Address: [address] [place] [address] Performed By: #### 2 4323-8 ####[facility] LABCLIA [id number] [place] [address] ALT [Catalytic activity/Vol] 17 U/L Normal 7-38 [facility] Comment on above: Order Comment: Speci men Type: BLOOD SPECIMENOrdering Facility: [facility] Address: [address] [place] [address] Performed By: #### 2 4323-8 ####[facility] LABCLIA [id number] [place] [address] Anion gap [Moles/Vol] 9 mmol/L Normal 9-18 [facility] Comment on above: Order Comment: Speci men Type: BLOOD SPECIMENOrdering Facility: [facility] Address: [address] [place] [address] Performed By: #### 2 4323-8 ####[facility] LABCLIA [id number] [place] [address] AST [Catalytic activity/Vol] 11 U/L Low 13-35 [facility] Comment on above: Order Comment: Speci men Type: BLOOD SPECIMENOrdering Facility: [facility] Address: [address] [place] [address] Performed By: #### 2 4323-8 ####[facility] LABCLIA [id number] [place] [address] Bilirubin [Mass/Vol] 0.2 mg/dL Normal 0.2-1.3 [facility] [facility] Comment on above: Order Comment: Speci men Type: BLOOD SPECIMENOrdering Facility: [facility] Address: [address] [place] [address] Performed By: #### 2 4323-8 ####[facility] LABCLIA [id number] [place] [address] Calcium [Mass/Vol] 10.1 mg/dL Normal 8.5-10.2 [facility] Comment on above: Order Comment: Speci men Type: BLOOD SPECIMENOrdering Facility: [facility] Address: [address] [place] [address] Performed By: #### 2 4323-8 ####[facility] LABCLIA [id number] [place] [address] Chloride [Moles/Vol] 103 mmol/L Normal 97-105 [facility] Comment on above: Order Comment: Speci men Type: BLOOD SPECIMENOrdering Facility: [facility] Address: [address] [place] [address] Performed By: #### 2 4323-8 ####[facility] LABCLIA [id number] [place] [address] CO2 [Moles/Vol] 30 mmol/L Normal 22-30 [facility] Comment on above: Order Comment: Speci men Type: BLOOD SPECIMENOrdering Facility: [facility] Address: [address] [place] [address] Performed By: #### 2 4323-8 ####[facility] LABCLIA [id number] [place] [address] Creatinine [Mass/Vol] 1.77 mg/dL High 0.58-0.96 [facility] Comment on above: Order Comment: Dimple de santiago Type: BLOOD SPECIMENOrdering Facility: [facility] Address: [address] [place] [address] Performed By: #### 2 4323-8 ####[facility] LABCLIA [id number] [place] [address] Creatinine and Glomerular filtration rate.predicted panel (S/P/Bld) 29 mL/min/1.73m??? Low >=60 [facility] Comment on above: Order Comment: Dimple men Type: BLOOD SPECIMENOrdering Facility: [facility] Address: [address] [place] [address] Result Comment: Ramila mated Glomerular Filtration Rate [...] actual GFR. Performed By: #### 2 4323-8 ####[facility] LABCLIA [id number] [place] [address] Glucose [Mass/Vol] 273 mg/dL High 74-99 [facility] Comment on above: Order Comment: Dimple anyi Type: BLOOD SPECIMENOrdering Facility: [facility] Address: [address] [place] [address] Result Comment: The [place] Diabetes Association (ADA) provides guidance for cutoff [...] Standards of Medical Care in Diabetes 2016, [place] [employer]. Diabetes Care. 2016.39(Suppl 1). Performed By: #### 2 4323-8 ####[facility] LABCLIA [id number] [place] [address] Potassium [Moles/Vol] 5.1 mmol/L Normal 3.7-5.1 [facility] Comment on above: Order Comment: Speci men Type: BLOOD SPECIMENOrdering Facility: [facility] Address: [address] [place] [address] Performed By: #### 2 4323-8 ####[facility] LABCLIA [id number] [place] [address] Protein [Mass/Vol] 6.4 g/dL Normal 6.3-8.0 [facility] Comment on above: Order Comment: Speci men Type: BLOOD SPECIMENOrdering Facility: [facility] Address: [address] [place] [address] Performed By: #### 2 4323-8 ####[facility] LABCLIA [id number] [place] [address] Sodium [Moles/Vol] 142 mmol/L Normal 136-144 [facility] Comment on above: Order Comment: Speci men Type: BLOOD SPECIMENOrdering Facility: [facility] Address: [address] [place] [address] Performed By: #### 2 4323-8 ####[facility] LABCLIA [id number] [place] [address] Urea nitrogen [Mass/Vol] 40 mg/dL High 7-21 [facility] Comment on above: Order Comment: Speci men Type: BLOOD SPECIMENOrdering Facility: [facility] Address: [address] [place] [address] Performed By: #### 2 4323-8 ####[facility] LABCLIA [id number] [place] [address] Vaginitis DNA Probeon 2022 Manjula Negative Normal NEG [facility] Comment on above: Result Comment: for Manjula sp. Method of testing is a DNA probe intended for detection and identification of Manjula species, Gardnerella vaginalis, and Trichomonas vaginalis nucleic acid in vaginal fluid specimens from patients with symptoms of vaginitis/vaginosis. Performed By: #### V AGP #### [facility] [place] [address] Fiber Machine Tender: Fidel Hylton MD Gardnerella Negative Normal NEG [facility] Comment on above: Result Comment: for Gardnerella vaginalis Performed By: #### V AGP #### [facility] [employer] [address] [place] [address] [phone] Fiber Machine Tender: Fidel Hylton MD Trichomonas Negative Normal NEG [facility] Comment on above: Result Comment: for Trichomonas Vaginalis Performed By: #### V AGP #### [facility] [employer] [address] [place] [address] Fiber Machine Tender: Fidel Hylton MD Source .VAGINAL SWAB Normal [facility] Comment on above: Performed By: #### V AGP #### [facility] [address] [place] [address] [phone] Fiber Machine Tender: Fidel Hylton MD OPERATIVE REPORTon OPERATIVE REPORT [address] [address] OPERATIVE REPORT PATIENT NAME: HARMAN MCLEOD : 1940 MED REC NO: [id number] ROOM: ACCOUNT NO: [id number] ADMIT DATE: 03/06/2023 PROVIDER: Emma Garza MD DATE OF PROCEDURE: 03/06/2023 PREOPERATIVE DIAGNOSIS: Recurrent vaginal dysplasia. POSTOPERATIVE DIAGNOSIS: Recurrent vaginal dysplasia. OPERATION PERFORMED: Examination under anesthesia, carbon dioxide laser vaporization of vaginal dysplasia. COMPLICATIONS: None. BLOOD LOSS: Minimal. SURGEON: Emma Garza MD QUALITY CONTROL LAB TECH: Mauri (resident). DISPOSITION: The patient to recovery room stable. SPECIMENS: No specimen sent to Pathology. OPERATIVE FINDINGS: The patient had a small 1-2 cm area of lkhicras-sg-qgdxgu dysplasia along the anterior vagina from 12 [...] entire procedure. EMMA GARZA MD [email or web address] Doc#: [id number] CC: Normal [facility] Consultation Noteon 02-20-20 Consultation Note [id number]#1.0 0CD:127 Normal [facility] CBC W Auto Differential pane l (Bld)on 02-14-2023 Basophils (Bld) [#/Vol] 0.04 10*3/uL Normal <0.11 [facility] Comment on above: Order Comment: Speci men Type: BLOOD SPECIMENOrdering Facility: [facility] Address: [address] [address] Performed By: #### 5 7021-8 ####[facility] LABCLIA [id number] [place] [address] Basophils/100 WBC (Bld) 0.4 % Normal [facility] Comment on above: Order Comment: Speci men Type: BLOOD SPECIMENOrdering Facility: [facility] Address: [address] [place], [place] [address] Performed By: #### 5 7021-8 ####[facility] LABCLIA [id number] [place] [address] Differential cell count method Nom (Bld) Auto Normal [facility] Comment on above: Order Comment: Speci men Type: BLOOD SPECIMENOrdering Facility: [facility] Address: [address] [place] [address] Performed By: #### 5 7021-8 ####[facility] LABCLIA [id number] [place] [address] Eosinophils (Bld) [#/Vol] 0.20 10*3/uL Normal <0.46 [facility] Comment on above: Order Comment: Speci men Type: BLOOD SPECIMENOrdering Facility: [facility] Address: [address] [place] [address] Performed By: #### 5 7021-8 ####[facility] LABCLIA [id number] [place] [address] Eosinophils/100 WBC (Bld) 1.9 % Normal [facility] Comment on above: Order Comment: Speci men Type: BLOOD SPECIMENOrdering Facility: [facility] Address: [address] [place] [address] Performed By: #### 5 7021-8 ####[facility] LABCLIA [id number] [place] [address] Erythrocyte distribution width (RBC) [Ratio] 14.1 % Normal 11.5-15.0 [facility] Comment on above: Order Comment: Speci men Type: BLOOD SPECIMENOrdering Facility: [facility] Address: [address] [place] [address] Performed By: #### 5 7021-8 ####[facility] LABCLIA [id number] [place] [address] Hematocrit (Bld) [Volume fraction] 38.4 % Normal 36.0-46.0 [facility] Comment on above: Order Comment: Speci men Type: BLOOD SPECIMENOrdering Facility: [facility] Address: [address] [place] [address] Performed By: #### 5 7021-8 ####[facility] LABCLIA [id number] [place] [address] Hemoglobin (Bld) [Mass/Vol] 12.2 g/dL Normal 11.5-15.5 [facility] Comment on above: Order Comment: Speci men Type: BLOOD SPECIMENOrdering Facility: [facility] Address: [address] [place] [address] Performed By: #### 5 7021-8 ####[facility] LABCLIA [id number] [place] [address] Immature granulocytes (Bld) [#/Vol] 0.06 10*3/uL Normal <0.10 [facility] Comment on above: Order Comment: Speci men Type: BLOOD SPECIMENOrdering Facility: [facility] Address: [address] [place] [address] Performed By: #### 5 7021-8 ####[facility] LABCLIA [id number] [place] [address] Immature granulocytes/100 WBC (Bld) 0.6 % Normal [facility] Comment on above: Order Comment: Speci men Type: BLOOD SPECIMENOrdering Facility: [facility] Address: [address] [place] [address] Performed By: #### 5 7021-8 ####[facility] LABCLIA [id number] [place] [address] Lymphocytes (Bld) [#/Vol] 2.56 10*3/uL Normal 1.00-4.00 [facility] Comment on above: Order Comment: Speci men Type: BLOOD SPECIMENOrdering Facility: [facility] Address: [address] [place] [address] Performed By: #### 5 7021-8 ####[facility] LABCLIA [id number] [place] [address] Lymphocytes/100 WBC (Bld) 24.6 % Normal [facility] Comment on above: Order Comment: Speci men Type: BLOOD SPECIMENOrdering Facility: [facility] Address: [address] [place] [address] Performed By: #### 5 7021-8 ####[facility] LABCLIA [id number] [place] [address] MCH (RBC) [Entitic mass] 30.0 pg Normal 26.0-34.0 [facility] Comment on above: Order Comment: Speci men Type: BLOOD SPECIMENOrdering Facility: [facility] Address: [address] [place] [address] Performed By: #### 5 7021-8 ####[facility] LABCLIA [id number] [place] [address] MCHC (RBC) [Mass/Vol] 31.8 g/dL Normal 30.5-36.0 [facility] Comment on above: Order Comment: Speci men Type: BLOOD SPECIMENOrdering Facility: [facility] Address: [address] [address] Performed By: #### 5 7021-8 ####[facility] LABCLIA [id number] [place] [address] MCV (RBC) [Entitic vol] 94.3 fL Normal 80.0-100.0 [facility] Comment on above: Order Comment: Speci men Type: BLOOD SPECIMENOrdering Facility: [facility] Address: [address] [address] Performed By: #### 5 7021-8 ####[facility] LABCLIA [id number] [place] [address] Monocytes (Bld) [#/Vol] 0.86 10*3/uL Normal <0.87 [facility] Comment on above: Order Comment: Speci men Type: BLOOD SPECIMENOrdering Facility: [facility] Address: [address] [place] [address] Performed By: #### 5 7021-8 ####[facility] LABCLIA [id number] [place] [address] Monocytes/100 WBC (Bld) 8.3 % Normal [facility] Comment on above: Order Comment: Speci men Type: BLOOD SPECIMENOrdering Facility: [facility] Address: [address] [place] [address] Performed By: #### 5 7021-8 ####[facility] LABCLIA [id number] [place] [address] Neutrophils (Bld) [#/Vol] 6.69 10*3/uL Normal 1.45-7.50 [facility] Comment on above: Order Comment: Speci men Type: BLOOD SPECIMENOrdering Facility: [facility] Address: [address] [place] [address] Performed By: #### 5 7021-8 ####[facility] LABCLIA [id number] [place] [address] Neutrophils/100 WBC (Bld) 64.2 % Normal [facility] Comment on above: Order Comment: Speci men Type: BLOOD SPECIMENOrdering Facility: [facility] Address: [address] [place] [address] Performed By: #### 5 7021-8 ####[facility] LABCLIA [id number] [place] [address] Nucleated RBC (Bld) [#/Vol] 10*3/uL Normal <0.01 [facility] Comment on above: Order Comment: Speci men Type: BLOOD SPECIMENOrdering Facility: [facility] Address: [address] [place] [address] Performed By: #### 5 7021-8 ####[facility] LABCLIA [id number] [place] [address] Nucleated RBC/100 WBC (Bld) [Ratio] 0.0 /100 WBC Normal [facility] Comment on above: Order Comment: Speci men Type: BLOOD SPECIMENOrdering Facility: [facility] Address: [address] [address] Performed By: #### 5 7021-8 ####[facility] LABCLIA [id number] [place] [address] Platelet mean volume (Bld) [Entitic vol] 9.6 fL Normal 9.0-12.7 [facility] Comment on above: Order Comment: Speci men Type: BLOOD SPECIMENOrdering Facility: [facility] Address: [address] [place] [address] Performed By: #### 5 7021-8 ####[facility] LABCLIA [id number] [place] [address] Platelets (Bld) [#/Vol] 271 10*3/uL Normal 150-400 [facility] Comment on above: Order Comment: Speci men Type: BLOOD SPECIMENOrdering Facility: [facility] Address: [address] [place] [address] Performed By: #### 5 7021-8 ####[facility] LABCLIA [id number] [place] [address] RBC (Bld) [#/Vol] 4.07 10*6/uL Normal 3.90-5.20 [facility] Comment on above: Order Comment: Speci men Type: BLOOD SPECIMENOrdering Facility: [facility] Address: [address] [address] Performed By: #### 5 7021-8 ####[facility] LABCLIA [id number] [place] [address] WBC (Bld) [#/Vol] 10.41 10*3/uL Normal 3.70-11.00 [facility] Comment on above: Order Comment: Speci men Type: BLOOD SPECIMENOrdering Facility: [facility] Address: [address] [place] [address] Performed By: #### 5 7021-8 ####[facility] LABIA [id number] [place] [address] CNOVSPon 02-14-2023 CNOVSP Visit (SP) Office (HEMASA) HARMAN MCLEOD ([id number]) 1940 F Date Time Provider Department 02/14/23 10:30 AM WALLACE STONE During your visit today, we recorded the following information about you: Temperature Pulse Respiration Blood pressure 97.4 degrees 102/minute 16/minute 151/90 Weight Height 84.5 kg 1.549 m Wallace Stone MD 02/14/2023 10:49 AM Signed PATIENT NAME: Harman Mcleod CLINIC NO.: [id number] ATTENDING PHYSICIAN: Wallace Stone MD DATE OF [...] Negative LVI, 2 SNL negative, ER and MI >95% positive, Her2 IHC 1+ Treatment History: [...] : Deferre (more content not included)... Normal [facility] CNPNon 02-14-2023 CNPN Telephone (NCCAP) HARMAN MCLEOD ([id number]) 1940 F Date Time Provider Department 02/14/23 WALLACE STONE [facility] During your visit today, we recorded the following information about you: Angelica Bhakta Sec 02/14/2023 11:00 AM Signed Please ref to [facility] for Consult dx eczema They will call the patient to schedule after review of records. Janeth, Please fax records Dudley, Please check on this appt. Kira Ko [facility] 02/14/2023 1:14 PM Signed Records faxed to [facility]. Adriana Pereira [facility] 02/22/2023 8:35 AM Signed Called [...] daily at bedtime. Cut in half - Dtyyl-9-GBV-EPA-Fish Oil 1,000 mg (120 mg-180 mg) cap Take 2 g by mouth twice daily. - isosorbide mononitrate ER (IMDUR) 60 mg 24 hr tablet Take 60 mg by mouth twice daily. Problem List As Of Date 02/14/2023 Noted Resolved Hypertension [I10] DM type 2 (diabetes mellitus, type 2) ([facility]) [E1* Essential hypertension [I10] 01/16/2017 Type 2 diabetes mellitus without complication, *01/16/2017 Hypothyroidism [E03.9] 01/16/2017 Dyslipidemia [E78.5] 01/16/2017 Atherosclerosis of [place] coronary artery of na*01/16/2017 S/P coronary artery stent placement [Z95.5] 01/16/2017 Moderate smoker (20 or less per day) [F17.210] 01/16/2017 PAD (peripheral artery disease) ([facility]) [I73.9] 01/16/2017 Vaginal lesion [N89.8] 01/20/2017 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 Stage 3a chronic kidney disease (HCC) [N18.31] 02/14/2023 Encounter Status:Closed by ANGELICA MILLAN on 02/28/23 Normal [facility] Comprehensive metabolic 2000 panelon 02-14-2023 Albumin [Mass/Vol] 4.1 g/dL Normal 3.9-4.9 [facility] Comment on above: Order Comment: Speci men Type: BLOOD SPECIMENOrdering Facility: [facility] Address: [address] [place] [address] Performed By: #### 2 4323-8 ####[facility] LABCLIA [id number] [place] [address] ALP [Catalytic activity/Vol] 106 U/L Normal 34-123 [facility] Comment on above: Order Comment: Speci men Type: BLOOD SPECIMENOrdering Facility: [facility] Address: [address] [address] Performed By: #### 2 4323-8 ####[facility] LABCLIA [id number] [place] [address] ALT [Catalytic activity/Vol] 14 U/L Normal 7-38 [facility] Comment on above: Order Comment: Speci men Type: BLOOD SPECIMENOrdering Facility: [facility] Address: [address] [address] Performed By: #### 2 4323-8 ####[facility] LABCLIA [id number] [place] [address] Anion gap [Moles/Vol] 11 mmol/L Normal 9-18 [facility] Comment on above: Order Comment: Speci men Type: BLOOD SPECIMENOrdering Facility: [facility] Address: [address] [address] Performed By: #### 2 4323-8 ####[facility] LABCLIA [id number] [place] [address] AST [Catalytic activity/Vol] 11 U/L Low 13-35 [facility] Comment on above: Order Comment: Speci men Type: BLOOD SPECIMENOrdering Facility: [facility] Address: [address] [place] [address] Performed By: #### 2 4323-8 ####[facility] LABCLIA [id number] [place] [address] Bilirubin [Mass/Vol] 0.3 mg/dL Normal 0.2-1.3 [facility] Comment on above: Order Comment: Speci men Type: BLOOD SPECIMENOrdering Facility: [facility] Address: [address] [place] [address] Performed By: #### 2 4323-8 ####[facility] LABCLIA [id number] [place] [address] Calcium [Mass/Vol] 10.2 mg/dL Normal 8.5-10.2 [facility] Comment on above: Order Comment: Speci men Type: BLOOD SPECIMENOrdering Facility: [facility] Address: [address] [place] [address] Performed By: #### 2 4323-8 ####[facility] LABCLIA [id number] [place] [address] Chloride [Moles/Vol] 98 mmol/L Normal 97-105 [facility] Comment on above: Order Comment: Speci men Type: BLOOD SPECIMENOrdering Facility: [facility] Address: [address] [place] [address] Performed By: #### 2 4323-8 ####[facility] LABCLIA [id number] [place] [address] CO2 [Moles/Vol] 31 mmol/L High 22-30 [facility] Comment on above: Order Comment: Speci men Type: BLOOD SPECIMENOrdering Facility: [facility] Address: [address] [id number] Performed By: #### 2 4323-8 ####[facility] LABCLIA [id number] [place] [address] Creatinine [Mass/Vol] 1.25 mg/dL High 0.58-0.96 [facility] Comment on above: Order Comment: Speci men Type: BLOOD SPECIMENOrdering Facility: [facility] Address: [address] [address] Performed By: #### 2 4323-8 ####[facility] LABCLIA [id number] [place] [address] ESTIMATED GLOMERULAR FILTRATION RATE 44 mL/min/1.73m??? Low >=60 [facility] Comment on above: Order Comment: Speci men Type: BLOOD SPECIMENOrdering Facility: [facility] Address: [address] [place] [address] Result Comment: Ramila mated Glomerular Filtration Rate [...] actual GFR. Performed By: #### 2 4323-8 ####[facility] LABCLIA [id number] [place] [address] Glucose [Mass/Vol] 285 mg/dL High 74-99 [facility] Comment on above: Order Comment: Speci men Type: BLOOD SPECIMENOrdering Facility: [facility] Address: [address] [address] Result Comment: The [place] Diabetes Association (ADA) provides guidance for cutoff [...] Standards of Medical Care in Diabetes 2016, [place] [employer]. Diabetes Care. 2016.39(Suppl 1). Performed By: #### 2 4323-8 ####[facility] LABCLIA [id number] [place] [address] Potassium [Moles/Vol] 3.7 mmol/L Normal 3.7-5.1 [facility] Comment on above: Order Comment: Speci men Type: BLOOD SPECIMENOrdering Facility: [facility] Address: [address] [place] [address] Performed By: #### 2 4323-8 ####[facility] LABCLIA [id number] [place] [address] Protein [Mass/Vol] 7.3 g/dL Normal 6.3-8.0 [facility] Comment on above: Order Comment: Speci men Type: BLOOD SPECIMENOrdering Facility: [facility] Address: [address] [place] [address] Performed By: #### 2 4323-8 ####[facility] LABCLIA [id number] [place] [address] Sodium [Moles/Vol] 140 mmol/L Normal 136-144 [facility] Comment on above: Order Comment: Speci men Type: BLOOD SPECIMENOrdering Facility: [facility] Address: [address] [address] Performed By: #### 2 4323-8 ####[facility] LABCLIA [id number] [place] [address] Urea nitrogen [Mass/Vol] 33 mg/dL High 7-21 [facility] Comment on above: Order Comment: Speci men Type: BLOOD SPECIMENOrdering Facility: [facility] Address: [address] [place], [place] [address] Performed By: #### 2 4323-8 ####[facility] LABCLIA [id number] [place] [address] Consultation Noteon 02-15-20 23 Consultation Note [id number]#1.0 0CD:127 Normal [facility] Comment on above: Other Comment: TRACEY RUTH CRR CULTURE URINEon 01-19-2023 CULTURE URINE Culture Observations : VERY LIGHT GROWTH OF MIXED GENITAL SAGE. NO POTENTIAL PATHOGENS SEEN. Normal [facility] Comment on above: Performed By: #### U RCX ####[facility] [address] [address]Dr. Omid Bowden UA RANDOM W/MICROSCOPICon BACTERIA TRACE Abnormal NONE SEEN [facility] Comment on above: Performed By: #### H GB #### [facility] [address] [place] [address] Dr. Omid Bowden Bilirubin Ql (U) Negative Normal NEGATIVE [facility] Comment on above: Performed By: #### H GB #### [facility] [address] [place] [address] Dr. Omid Bowden CAST NONE SEEN Normal NONE SEEN [facility] Comment on above: Performed By: #### H GB #### [facility] [address] [place] [address] Dr. Omid Bowden Clarity (U) CLEAR Normal CLEAR [facility] Comment on above: Performed By: #### H GB #### [facility] [address] [place] [address] Dr. Omid Bowden Color (U) LT. YELLOW Normal YELLOW [facility] Comment on above: Performed By: #### H GB #### [facility] [address] [place] [address] Dr. Omid Bowden Crystals LM Nom (Urine sed) NONE SEEN Normal NONE SEEN [facility] Comment on above: Performed By: #### H GB #### [facility] [address] [place] [address] Dr. Omid Bowden Epithelial cells LM Ql (Urine sed) RARE Normal NONE SEEN /RARE [facility] Comment on above: Performed By: #### H GB #### [facility] [address] [place] [address] Dr. Omid Bowden Glucose Ql (U) Negative Normal NEGATIVE [facility] Comment on above: Performed By: #### H GB #### [facility] [address] [address] [address] Omid Bowden Hemoglobin Ql (U) Negative Normal NEGATIVE [facility] Comment on above: Performed By: #### H GB #### [facility] [address] [place] [address] Dr. Omid Bowden Ketones Ql (U) Negative Normal NEGATIVE [facility] Comment on above: Performed By: #### H GB #### [facility] [address] [place] [address] Dr. Omid Bowden LEUKOCYTES SMALL Abnormal NEGATIVE [facility] Comment on above: Performed By: #### H GB #### [facility] [address] [place] [address] Dr. Omid Bowden MUCOUS NONE SEEN Normal NONE SEEN [facility] Comment on above: Performed By: #### H GB #### [facility] [address] [place] [address] Dr. Omid Bowden Nitrite Ql (U) Negative Normal NEGATIVE [facility] Comment on above: Performed By: #### H GB #### [facility] [address] [place] [address] Dr. Omid Bowden pH (U) 6.0 [pH] Normal 5-9 [facility] Comment on above: Performed By: #### H GB #### [facility] [address] [place] [address] Dr. Omid Bowden RBC 0-2 Normal 0-2 [facility] Comment on above: Performed By: #### H GB #### [facility] [address] [place] [address] Dr. Omid Bowden SPEC GRAVITY <=1.005 Abnormal 1.005-<=1.0 25 [facility] Comment on above: Performed By: #### H GB #### [facility] [address] [address] [address] Omid Bowden UA PROTEIN Negative Normal NEGATIVE/ TRACE [facility] Comment on above: Performed By: #### H GB #### [facility] [address] [address] [address] Omid Bowden Urobilinogen Qn (U) 0.2 {Jose'U}/dL Normal 0.2 - 1. 0 [facility] Comment on above: Performed By: #### H GB #### [facility] [address] [address] [address] Omid Bowden WBC 0-2 Abnormal NONE SEEN [facility] Comment on above: Performed By: #### H GB #### [facility] [address] [address] [address] Omid Bowden Creatinine [Mass/volume] in Serum or PlasmaOrdered By: Christiano Gonzales on 11-29-2022 Creatinine [Mass/Vol] 1.37 mg/dL 0.60-1.20 [facility] - Chemistry and C hemistry - challengeOrdered By: Christiano Gonzales on 11-29-2022 GFR/1.73 sq M.predicted MDRD (S/P/Bld) [Vol rate/Area] 39.034 mL/min/{1.73_m2} [facility] No Panel InformationOrdered By: Christiano Gonzales on 11-29-2022 Pharmacy Creatinine Clearance (Chem 31.71 [facility] Urea nitrogen [Mass/volume] in Serum or PlasmaOrdered By: Christiano Gonzales on 11-29-2022 Urea nitrogen [Mass/Vol] 35 mg/dL 7-25 [facility] Surgical Pathologyon 023 Surgical Pathology (NOTE) [...] SURGICAL PATHOLOGY CONSULTATION Patient Name: HARMAN MCLEOD [facility] Rec: [id number] Path Number: [id number] [facility] [employer] [facility] ANATOMIC PATHOLOGY [address] [place] [id number] Normal [facility] Comment on above: Performed By: #### P PPVS #### [facility] [address] [place] [address] [id number] [employer] Tender: Fidel Hylton MD Ambulatory Visit Summaryon 0 [...] and diastolic (congestive) heart failure Atherosclerosis of [place] artery of extremity BMI 36.0-36.9,adult Brain stem [...] Stage 2 chronic kidney disease Normal [facility] Office/Clini c Noteon 11-22-2022 General [...] CARDONA, DANIEL Jose Only if needed [address] [place] [address]- Additional Instructions: Problem List/Past Medical History Ongoing 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 Normal [facility] Comment on above: Result Comment: Elec tronically Signed By: CHELSI CARDONA, Iliana Alvarez\Date and Time Signed: 11/22/22 15:17 EDT Covid-19 PCR (CVDTB)on SARS-CoV-2 (COVID-19) RNA MARII+probe Ql (Unsp spec) Not detected Normal NOT DETECTED [facility] Comment on above: Result Comment: [...] for this test is supported by the Liquor Rectifier of Health and Human Service's declaration that [...] used). Performed By: #### H GB #### [facility] [address] [address] [address] Omid Bowden INFLUENZA A AND B AGon 11-16 [facility] SEE BELOW Normal [facility] Comment on above: Result Comment: Nega tive for Flu A protein angiten. Infection due to Flu A cannot be ruled out. Flu A angiten in the sample may be below the detection limit of the test. Performed By: #### I NFLUAB ####[facility] [address] [address]DrMedardo Bowden INFLUBNEGH SEE BELOW Normal [facility] Comment on above: Result Comment: Nega tive for Flu B protein antigen. Infection due to Flu B cannot be ruled out. Flu B antigen in the sample may be below the detection limit of the test. Performed By: #### I NFLUAB ####[facility] [address] [address]DrMedardo Bowden INFLUENZA A AG Negative Normal NEGATIVE SEE COMMENT [facility] Comment on above: Performed By: #### I NFLUAB ####[facility] [address] [place] [address]DrMedardo Bowden INFLUENZA B AG Negative Normal NEGATIVE SEE COMMENT [facility] Comment on above: Performed By: #### I NFLUAB ####[facility] [address] [place] [address]Dr. Omid Bowden CNOVSPon 11-09-2022 CNOVSP Visit (SP) Office ([place]) HARMAN MCLEOD ([id number]) 1940 F Date Time Provider Department 11/09/22 2:00 PM WALLACE STONE During your visit today, we recorded the following information about you: Temperature Pulse Respiration Blood pressure 97.1 degrees 66/minute 18/minute 142/72 Weight Height 84.7 kg 1.549 m Wallace Stone MD 11/09/2022 2:24 PM Signed PATIENT NAME: Harman Mcleod CLINIC NO.: [id number] ATTENDING PHYSICIAN: Wallace Stone MD DATE OF SERVICE: November 09, [address] Banks referring provider defined for this encounter. here is an update on a follow up visit on female Harman Mcleod at the clinic 11/09/2022 Diagnosis: T1b, N0, M0- R breast, Tumor 9 mm, Grade 2, Margins negative, Negative LVI, 2 SNL negative, ER and MI >95% positive, Her2 IHC 1+ Treatment History: [...] LABS: Gluc (more content not included)... Normal [facility] CNPNon 11-09-2022 CNPN Telephone (NCCAP) HARMAN MCLEOD ([id number]) 1940 F Date Time Provider Department 11/09/22 [facility]ALL[facility] STONE [facility] During your visit today, we recorded the following information about you: Carlos Brooks 11/09/2022 2:45 PM Signed Vascular Consult [facility] Previous patient of Dr. Mendez 3 years or more. Janeth/Dudley: Can you please refer patient and follow up? Thanks! Carlos Pereira Pss 11/10/2022 8:46 AM Signed Janeth: Information ready for you. Adriana Ko [facility] 11/10/2022 9:38 AM Signed Records faxed. Adriana Burnham 11/16/2022 8:42 AM Signed Called Vascular office spoke with Jsesy. They have received this referral and have [...] Fully Assessed Reason for Visit: Referral Information [9922] Cmt: Vascular Consult Prescriptions as of 11/16/2022 [...] daily at bedtime. Cut in half - Bklio-2-XMD-EPA-Fish Oil 1,000 mg (120 mg-180 mg) cap Take 2 g by mouth twice daily. - isosorbide mononitrate ER (IMDUR) 60 mg 24 hr tablet Take 60 mg by mouth twice daily. Problem List As Of Date 11/09/2022 Noted Resolved Hypertension [I10] DM type 2 (diabetes mellitus, type 2) ([facility]) [E1* Essential hypertension [I10] 01/16/2017 Type 2 diabetes mellitus without complication, *01/16/2017 Hypothyroidism [E03.9] 01/16/2017 Dyslipidemia [E78.5] 01/16/2017 Atherosclerosis of [place] coronary artery of na*01/16/2017 S/P coronary artery stent placement [Z95.5] 01/16/2017 Moderate smoker (20 or less per day) [F17.210] 01/16/2017 PAD (peripheral artery disease) ([facility]) [I73.9] 01/16/2017 Vaginal lesion [N89.8] 01/20/2017 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 Normal [facility] Comment on above: Result [...] Iliana Ramirez Where: General Surgery Chelsi/Angelita Victor [facility] General Surgery Office/Clini c [...] and diastolic (congestive) heart failure Atherosclerosis of [place] artery of extremity BMI 36.0-36.9,adult Brain stem [...] Family Histor (more content not included)... Normal [facility] Comment on above: Result [...] by: MIGUELITO TELLEZ Date: 2022-11-02 17:17 Normal [facility] Pathology Noteon 10-26-2022 Pathology Note [id number] 0CD:127 Normal [facility] Ambulatory Visit Summaryon 0 [...] GAGNON MD Where: General Surgery Nill/Angelita Victor [facility] General Surgery Office/Clini c [...] and diastolic (congestive) heart failure Atherosclerosis of [place] artery of extremity BMI 36.0-36.9,adult Brain stem [...] disease: Mo (more content not included)... Normal [facility] Comment on above: Result Comment: Elec tronically Signed By: CHELSI CARDONA, Iliana Alvarez\Date and Time Signed: 10/25/22 16:13 EST Operative Reporton 3 Operative Report [id number] 0CD:127 Normal [facility] RAD - Ultrasound Reporton RAD - Ultrasound Report [id number] 0CD:127 Normal [facility] NM SENTNL NODEon 10-19-2022 [...] by: KRISTIN JAQUEZ Date: 2022-10-19 10:41 Normal [facility] POINT OF CARE GLUCOSEon Glucose [Mass/Vol] 153 mg/dL Critically high 74-106 T [facility] Comment on above: Performed By: #### P OCGLUC #### [facility] [address] [place] [address] Dr. Omid Bowden RAD - MISCon 10-19-2022 RAD - MISC [id number] 0CD:127 Normal [facility] RAD - MISC [id number] 0CD:127 Normal [facility] RAD - Ultrasound Reporton RAD - Ultrasound Report [id number] 0CD:127 Normal [facility] RAD - Ultrasound Report [id number] 0CD:127 Normal [facility] US BREAST SPECIMENon 023 US BREAST SPECIMEN Patient: HARMAN MCLEOD Exam Date: 10/19/2022 : 1940 Gender:F Ordering : DR ILIANA GAGNON . Admission #: [id number] Family : Order #: [id number] CLICK HERE TO VIEW EXAM RADIOLOGY REPORT PROCEDURE: US BREAST SPECIMEN COMPARISON: None. INDICATIONS: Specimen from breast FINDINGS: Breast specimen demonstrates inclusion of the targeted mass as well as the micro clip marker CONCLUSION: Targeted mass and micro clip marker included within the specimen Dictated by: Judson Bauman MD on 10/19/2022 at 11:46 Approved by: Judson Bauman MD on 10/19/2022 at 11:47 Normal [facility] US GUIDE LOCAL BREAST RTon 0 10-19-2022 US GUIDE LOCAL BREAST RT Patient: HARMAN MCLEOD Exam Date: 10/19/2022 : 1940 Gender:F Ordering : DR IILANA GAGNON . Admission #: [id number] Family : Order #: [id number] CLICK HERE TO VIEW EXAM RADIOLOGY REPORT [...] clip marker LOCATION: Right breast 9 NEEDLE: [employer] spring hook; 20 g by 5 cm needle and wire. MEDICATION: 6 cubic cm Superficial and deep buffered 1% lidocaine. COMPLICATIONS: None. CONCLUSION: Technically successful hookwire localization. Dictated by: Judson Bauman MD on 10/19/2022 at 09:04 Approved by: Judson Bauman MD on 10/19/2022 at 09:05 Normal [facility] US SENTINEL NODEon US SENTINEL NODE EXAM: [...] by: JUDSON BAUMAN Date: 2022-10-19 08:59 Normal [facility] RAD - MISCon 10-17-2022 RAD - MISC [id number] 20 [id number] 0CD:127 Normal [facility] CBC AUTO DIFFon 10-11-2022 BASO # 0.0 103/ul Normal 0.0-0.1 [facility] Comment on above: Performed By: #### H GB #### [facility] [address] [place] [address] Dr. Omid Bowden Basophils/100 WBC (Bld) 0.2 % Normal 0.2-2.0 [facility] Comment on above: Performed By: #### H GB #### [facility] [address] [place] [address] Dr. Omid Bowden EO # 0.0 103/ul Normal 0.0-0.7 [facility] Comment on above: Performed By: #### H GB #### [facility] [address] [place] [address] Dr. Omid Bowden Eosinophils/100 WBC (Bld) 0.3 % Critically low 0.9-7.0 [facility] Comment on above: Performed By: #### H GB #### [facility] [address] [place] [address] Dr. Omid Bowden Erythrocyte distribution width (RBC) [Ratio] 13.7 % Normal 11.0-15.0 [facility] Comment on above: Performed By: #### H GB #### [facility] [address] [place] [address] Dr. Omid Bowden Hematocrit (Bld) [Volume fraction] 39.6 % Normal 36.0-48.0 [facility] Comment on above: Performed By: #### H GB #### [facility] [address] [place] [address] Dr. Omid Bowden Hemoglobin (Bld) [Mass/Vol] 12.3 g/dL Normal 12.0-16.0 [facility] Comment on above: Performed By: #### H GB #### [facility] [address] [place] [address] Dr. Omid Bowden IG # 0.06 10e3/ul Critically high 0.00-0.03 [facility] Comment on above: Performed By: #### H GB #### [facility] [address] [place] [address] Dr. Omid Bowden IG % 0.5 % Normal 0.0-0.5 [facility] Comment on above: Performed By: #### H GB #### [facility] [address] [place] [address] Dr. Omid Bowden LYMPH # 2.9 103/ul Normal 1.2-3.8 [facility] Comment on above: Performed By: #### H GB #### [facility] [address] [place] [address] Dr. Omid Bowden Lymphocytes/100 WBC (Bld) 26.2 % Normal 20.5-60.0 [facility] Comment on above: Performed By: #### H GB #### [facility] [address] [place] [address] Dr. Omid Bowden MANUAL DIFF REQ NO Normal [facility] Comment on above: Performed By: #### H GB #### [facility] [address] [place] [address] Dr. Omid Bowden MCH (RBC) [Entitic mass] 28.3 pg Normal 26.7-34.0 [facility] Comment on above: Performed By: #### H GB #### [facility] [address] [place] [address] Dr. Omid Bowden MCHC (RBC) [Mass/Vol] 31.1 g/dL Normal 29.9-35.2 [facility] Comment on above: Performed By: #### H GB #### [facility] [address] [place] [address] Dr. Omid Bowden MCV (RBC) [Entitic vol] 91.2 fL Normal 81.0-99.0 [facility] Comment on above: Performed By: #### H GB #### [facility] [address] [place] [address] Dr. Omid Bowden MONO # 0.9 103/ul Critically high 0.3-0.8 [facility] Comment on above: Performed By: #### H GB #### [facility] [address] [place] [address] Dr. Omid Bowden Monocytes/100 WBC (Bld) 8.3 % Normal 1.7-12.0 [facility] Comment on above: Performed By: #### H GB #### [facility] [address] [place] [address] Dr. Omid Bowden NEUT # 7.0 103/ul Critically high 1.4-6.5 [facility] Comment on above: Performed By: #### H GB #### [facility] [address] [address] [address] Omid Bowden Neutrophils/100 WBC (Bld) 64.5 % Normal 43.0-75.0 [facility] Comment on above: Performed By: #### H GB #### [facility] [address] [address] [address] Omid Bowden Platelet mean volume (Bld) [Entitic vol] 9.2 fL Critically low 9.5-13.5 [facility] Comment on above: Performed By: #### H GB #### [facility] [address] [place] [address] Dr. Omid Bowden PLT 346 103/ul Normal 150-450 [facility] Comment on above: Performed By: #### H GB #### [facility] [address] [address] [address] Omid Bowden RBC 4.34 106/ul Normal 4.20-5.40 [facility] Comment on above: Performed By: #### H GB #### [facility] [address] [address] [address] Omid Bowden WBC 10.9 103/ul Normal 4.0-11.0 [facility] Comment on above: Performed By: #### H GB #### [facility] [address] [address] [address] Omid Bowden PROF CHEM 8 (BAS METB)on Anion gap [Moles/Vol] 11.0 mmol/L Normal [facility] Comment on above: Performed By: #### L IPID, BMP #### [facility] [address] [address] [address] Omid Bowden Calcium [Mass/Vol] 9.6 mg/dL Normal 8.5-10.1 [facility] Comment on above: Performed By: #### L IPID, BMP #### [facility] [address] [address] [address] Omid Bowden Chloride [Moles/Vol] 99 mmol/L Normal 98-107 [facility] Comment on above: Performed By: #### L IPID, BMP #### [facility] [address] [address] [address] Omid Bowden CO2 [Moles/Vol] 32.0 mmol/L Normal 21.0-32.0 [facility] Comment on above: Performed By: #### L IPID, BMP #### [facility] [address] [place] [address] Dr. Omid Bowden Creatinine [Mass/Vol] 1.03 mg/dL Critically high 0.55-1.02 [facility] Comment on above: Performed By: #### L IPID, BMP #### [facility] [address] [place] [address] Dr. Omid Bowden EGFR-AF SWISS >60 Normal >=60 [facility] Comment on above: Performed By: #### L IPID, BMP #### [facility] [address] [place] [address] Dr. Omid Bowden EGFR-NON AF SWISS 52 mL/min/1.73m2 Critically low >=60 [facility] Comment on above: Performed By: #### L IPID, BMP #### [facility] [address] [place] [address] Dr. Omid Bowden Glucose [Mass/Vol] 94 mg/dL Normal 74-106 [facility] Comment on above: Performed By: #### L IPID, BMP #### [facility] [address] [place] [address] Dr. Omid Bowden Potassium [Moles/Vol] 4.0 mmol/L Normal 3.5-5.1 [facility] Comment on above: Performed By: #### L IPID, BMP #### [facility] [address] [place] [address] Dr. Omid Bowden Sodium [Moles/Vol] 138 mmol/L Normal 136-145 [facility] Comment on above: Performed By: #### L IPID, BMP #### [facility] [address] [place] [address] Dr. Omid Bowden Urea nitrogen [Mass/Vol] 28.0 mg/dL Critically high 7.0-18.0 [facility] Comment on above: Performed By: #### L IPID, BMP #### [facility] [address] [address] [address] Omid Bowden Urea nitrogen/Creatinine [Mass ratio] 27.2 mg/mg Normal [facility] Comment on above: Performed By: #### L IPID, BMP #### [facility] [address] [address] [address] Omid Bowden PROTIMEon 10-11-2022 INR Coag (PPP) [Relative time] 0.99 {INR} Normal [facility] Comment on above: Performed By: #### H GB #### [facility] [address] [place] [address] Dr. Omid Bowden INR GUIDELINES SEE BELOW Normal [facility] Comment on above: Result Comment: PERLITA RED INR: 2.0 - 3.0 CONDITIONS NOT LISTED BELOW 2.5 - 3.5 FOR PROSTHETIC HEART VALVE REPLACEMENT 2.5 - 3.5 RECURRENT THROMBOSIS Performed By: #### H GB #### [facility] [address] [place] [address] Dr. Omid Bowden PT Coag (PPP) [Time] 10.5 s Normal 9.0-11.6 [facility] Comment on above: Performed By: #### H GB #### [facility] [address] [place] [address] Dr. Omid Bowden PTTon 10-11-2022 aPTT Coag (Bld) [Time] 28.6 s Normal 22.3-36.2 [facility] Comment on above: Performed By: #### H GB #### [facility] [address] [place] [address] Dr. Omid Bowden Consultation Noteon 10-06-19 Consultation Note [id number] 0CD:127 Normal [facility] INSULINon 10-01-2022 Insulin 22.8 uIU/mL Normal 2.6-24.9 [facility] Comment on above: Performed By: #### L IPID, BMP #### [facility] [address] [address] [address] Omid Bowden GLYCOHEMOGLOBIN A1Con 2022 ADA RECOMMENDATION SEE BELOW Normal [facility] Comment on above: Result Comment: ADA RECOMMENDED LIMIT 4.0 - 6.0 ADA THERAPEUTIC TARGET < 7.0 ACTION SUGGESTED > 7.0 Performed By: #### H GB #### [facility] [address] [address] [address] Omid Bowden Glucose [Mass/Vol] 177 mg/dL Normal [facility] Comment on above: Performed By: #### H GB #### [facility] [address] [address] [address] Omid Bowden HbA1c (Bld) [Mass fraction] 7.8 % Critically high 4.5-6.2 [facility] Comment on above: Performed By: #### H GB #### [facility] [address] [address] [address] Omid Bwoden PROF 14(COMP METB)on 023 Albumin [Mass/Vol] 3.0 g/dL Critically low 3.4-5.0 [facility] Comment on above: Performed By: #### C MP ####[facility] [address] [address]DrMedardo Bowden Albumin/Globulin [Mass ratio] 0.7 {ratio} Normal [facility] Comment on above: Performed By: #### C MP ####[facility] [address] [address]DrMedardo Bowden ALP [Catalytic activity/Vol] 73 U/L Normal 46-116 [facility] Comment on above: Performed By: #### C MP ####[facility] [address] [address]DrMedardo Bowden ALT [Catalytic activity/Vol] 16 U/L Normal 14-59 [facility] Comment on above: Performed By: #### C MP ####[facility] [address] [address]DrMedardo Bowden Anion gap [Moles/Vol] 11.3 mmol/L Normal [facility] Comment on above: Performed By: #### C MP ####[facility] [address] [address]Dr. Omid Kal AST [Catalytic activity/Vol] 14 U/L Critically low 15-37 [facility] Comment on above: Performed By: #### C MP ####[facility] [address] [place] [address]Dr. Aixamegan Kal Bilirubin [Mass/Vol] 0.3 mg/dL Normal 0.2-1.0 [facility] Comment on above: Performed By: #### C MP ####[facility] [address] [place] [address]Dr. Omid Bowden Calcium [Mass/Vol] 9.5 mg/dL Normal 8.5-10.1 [facility] Comment on above: Performed By: #### C MP ####[facility] [address] [place] [address]Dr. Omid Bowden Chloride [Moles/Vol] 102 mmol/L Normal 98-107 [facility] Comment on above: Performed By: #### C MP ####[facility] [address] [place] [address]Dr. Omid Bowden CO2 [Moles/Vol] 31.1 mmol/L Normal 21.0-32.0 [facility] Comment on above: Performed By: #### C MP ####[facility] [address] [place] [address]Dr. Omid Bowden Creatinine [Mass/Vol] 1.28 mg/dL Critically high 0.55-1.02 [facility] Comment on above: Performed By: #### C MP ####[facility] [address] [place] [address]Dr. Omid Bowden EGFR-AF SWISS 49 mL/min/1.73m2 Critically low >=60 [facility] Comment on above: Performed By: #### C MP ####[facility] [address] [place] [address]Dr. Omid Bowden EGFR-NON AF SWISS 40 mL/min/1.73m2 Critically low >=60 [facility] Comment on above: Performed By: #### C MP ####[facility] [address] [address]Dr. Aixamegan Kal Globulin (S) [Mass/Vol] 4.4 g/dL Normal [facility] Comment on above: Performed By: #### C MP ####[facility] [address] [place], [place] [address]Dr. Aixamegan Kal Glucose [Mass/Vol] 103 mg/dL Normal 74-106 [facility] Comment on above: Performed By: #### C MP ####[facility] [address] [place] [address]Dr. Omid Bowden Potassium [Moles/Vol] 4.4 mmol/L Normal 3.5-5.1 [facility] Comment on above: Performed By: #### C MP ####[facility] [address] [place] [address]Dr. Aixamegan Bowden Protein [Mass/Vol] 7.4 g/dL Normal 6.4-8.2 [facility] Comment on above: Performed By: #### C MP ####[facility] [address] [place] [address]Dr. Omid Bowden Sodium [Moles/Vol] 140 mmol/L Normal 136-145 [facility] Comment on above: Performed By: #### C MP ####[facility] [address] [place] [address]Dr. Omid Bowden Urea nitrogen [Mass/Vol] 27.0 mg/dL Critically high 7.0-18.0 [facility] Comment on above: Performed By: #### C MP ####[facility] [address] [place] [address]Dr. Omid Bowden Urea nitrogen/Creatinine [Mass ratio] 21.1 mg/mg Normal [facility] Comment on above: Performed By: #### C MP ####[facility] [address] [place] [address]Dr. Omid Bowden Formson 09-29-2022 Forms [id number]#1.0 0CD:127 Normal [facility] Consent for Procedure/Surger yon 09-26-2022 Consent for Procedure/Surgery [id number]#1.0 0CD:127 Normal [facility] Consultation Noteon 09-23-19 Consultation Note [id number]#1.0 0CD:127 Normal [facility] CNOVon 09-22-2022 CNOV Office Visit (RADTSA ) HARMAN MCLEOD ([id number]) 1940 F Date Time Provider Department 09/22/22 1:00 PM MARCIN SHAH During your visit today, we recorded the following information about you: Marcin Shah MD 2022 6:06 AM Addendum Radiation Oncology - New Patient/Consult Note PATIENT NAME: Harman Mcleod PATIENT REQUESTING PHYSICIAN: Dr. 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 PATIENT IDENTIFICATION: This patient was seen in the Department of Radiation Oncology at the [facility] with Marcin Shah MD. She was accompanied today by her family. Final recommendations will be communicated back to the requesting physician by way of the shared medical record, or letter to requesting physician via US mail. HISTORY OF PRESENT ILLNESS: Ms. Mcleod is an 82-year-old woman from [place], [place] who was discovered on screening mammogram from July 2022 to have an abnormality within the anterior upper outer quadrant of the right breast. This was confirmed on ultrasound and she underwent stereotactic biopsy on 08/19/2022 with pathology revealing intermediate grade IDC that was ER/MI positive HER2 negative. She has met with [...] tablet crenshaw (more content not included)... Normal [facility] CNOVSPon 09-22-2022 CNOVSP Visit (SP) Office (HEMASA) HARMAN MCLEOD ([id number]) 1940 F Date Time Provider Department 09/22/22 11:30 AM WALLACE STONE During your visit today, we recorded the following information about you: Temperature Pulse Respiration Blood pressure 97.8 degrees 70/minute 16/minute 137/64 Weight Height 84.8 kg 1.549 m Wallace Stone MD 09/22/2022 5:19 PM Signed PATIENT NAME: Harman Mcleod CLINIC NO.: [id number] ATTENDING PHYSICIAN: Wallace Stone MD DATE OF [...] provisional grade 1 through 2, ER and MI greater than 95% positive, HER2/holden negative with an IHC score of 1+ and [facility] at [facility]. This patient was subsequently referred to Dr. Iliana Gagnon for surgical consultation. Patient denies any previous history of abnormal mammograms and or breast biopsy. She has had a recent bone density in [place] and was diagnosed with osteoporosis and started on Prolia as well. Patient has a sister who was diagnosed with breast cancer at the age of 82 and her daughter diagnosed with breast cancer at the age of 37. She quit smoking approximately 4 years ago. 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 [...] mouth daily at bedtime. Cut in half Vvlcn-1-ZHG-EPA-Fish Oil 1,000 mg (120 mg-180 mg) cap [...] high r (more content not included)... Normal [facility] Destinee 09-22-2022 JENNY Telephone (INDIA) HARSHAHARMAN ([id number]) 1940 F Date Time Provider Department 09/22/22 [...] daily at bedtime. Cut in half - Txkpc-0-ZTG-EPA-Fish Oil 1,000 mg (120 mg-180 mg) cap Take 2 g by mouth twice daily. - isosorbide mononitrate ER (IMDUR) 60 mg 24 hr tablet Take 60 mg by mouth twice daily. Problem List As Of Date 09/22/2022 Noted Resolved Hypertension [I10] DM type 2 (diabetes mellitus, type 2) ([facility]) [E1* Essential hypertension [I10] 01/16/2017 Type 2 diabetes mellitus without complication, *01/16/2017 Hypothyroidism [E03.9] 01/16/2017 Dyslipidemia [E78.5] 01/16/2017 Atherosclerosis of [place] coronary artery of na*01/16/2017 S/P coronary artery stent placement [Z95.5] 01/16/2017 Moderate smoker (20 or less per day) [F17.210] 01/16/2017 PAD (peripheral artery disease) (HCC) [I73.9] 01/16/2017 Vaginal lesion [N89.8] 01/20/2017 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 Performed By: #### C VDENCOM[facility] ####[place] [address]Dr. Omid Bowden INFLUENZA A AND B AGon 09-21 INFLUANEGH SEE BELOW Normal [facility] Comment on above: Result Comment: Nega tive for Flu A protein angiten. Infection due to Flu A cannot be ruled out. Flu A angiten in the sample may be below the detection limit of the test. Performed By: #### I NFLUAB ####[facility] [address] [place] [address]Dr. Omid Bowden INFLUBNEGH SEE BELOW Normal [facility] Comment on above: Result Comment: Nega tive for Flu B protein antigen. Infection due to Flu B cannot be ruled out. Flu B antigen in the sample may be below the detection limit of the test. Performed By: #### I NFLUAB ####[facility] [address] [place] [address]Dr. Omid Bowden INFLUENZA A AG Negative Normal NEGATIVE SEE COMMENT [facility] Comment on above: Performed By: #### I NFLUAB ####[facility] [address] [place] [address]Dr. Omid Bowden INFLUENZA B AG Negative Normal NEGATIVE SEE COMMENT [facility] Comment on above: Performed By: #### I NFLUAB ####[facility] [address] [place] [address]Dr. Omid Bowden LIPID PROFILEon 09-16-2022 CHOL-HDL RATIO NORM SEE BELOW Normal [facility] Comment on above: Result Comment: 3.3 - 4.4 LOW RISK 4.4 - 7.1 AVERAGE RISK 7.1 - 11.0 MODERATE RISK >11.0 HIGH RISK Performed By: #### L IPID, BMP #### [facility] [address] [place] [address] [address] Omid Bowden Cholesterol [Mass/Vol] 210 mg/dL Critically high <=200 [facility] Comment on above: Performed By: #### L IPID, BMP #### [facility] [address] [place] [address] [address] Omid Bowden Cholesterol in HDL [Mass/Vol] 49 mg/dL Normal 40-60 [facility] Comment on above: Performed By: #### L IPID, BMP #### [facility] [address] [place] [address] [address] Omid Bowden Cholesterol in LDL [Mass/Vol] 84.2 mg/dL Normal [facility] Comment on above: Performed By: #### L IPID, BMP #### [facility] [address] [place] [address] Dr. Omid Bowden Cholesterol.total/Chol esterol in HDL [Mass ratio] 4.3 {ratio} Normal [facility] Comment on above: Performed By: #### L IPID, BMP #### [facility] [address] [place] [address] Dr. Omid Bowden HDL NORMAL > or = 60 mg/dl - LO W CARDIOVASCULAR RISK <40 mg/dl - HIGH CARDIOVASCULAR RISK Normal [facility] Comment on above: Performed By: #### L IPID, BMP #### [facility] [address] [place] [address] Dr. Omid Bowden LDL CALC NORMAL SEE BELOW Normal [facility] Comment on above: Result Comment: <100 mg/dl OPTIMAL 100 - 129 mg/dl NEAR OR ABOVE OPTIMAL 130 - 159 mg/dl BORDERLINE HIGH 160 - 189 mg/dl HIGH >190 mg/dl VERY HIGH Performed By: #### L IPID, BMP #### [facility] [address] [place] [address] Dr. Omid Bowden Triglyceride [Mass/Vol] 384 mg/dL Critically high <=150 [facility] Comment on above: Performed By: #### L IPID, BMP #### [facility] [address] [place] [address] Dr. Omid Bowden VLDL CALC 76.8 mg/dL Normal [facility] Comment on above: Performed By: #### L IPID, BMP #### [facility] [address] [place] [address] Dr. Omid Bowden PROF CHEM 8 (BAS METB)on Anion gap [Moles/Vol] 10.8 mmol/L Normal [facility] Comment on above: Performed By: #### L IPID, BMP #### [facility] [address] [place] [address] [address] Omid Bowden Calcium [Mass/Vol] 8.8 mg/dL Normal 8.5-10.1 [facility] Comment on above: Performed By: #### L IPID, BMP #### [facility] [address] [place] [address] [address] Omid Bowden Chloride [Moles/Vol] 98 mmol/L Normal 98-107 [facility] Comment on above: Performed By: #### L IPID, BMP #### [facility] [address] [place] [address] [address] Omid Bowden CO2 [Moles/Vol] 34.5 mmol/L Critically high 21.0-32.0 [facility] Comment on above: Performed By: #### L IPID, BMP #### [facility] [address] [place] [address] Dr. Omid Bowden Creatinine [Mass/Vol] 1.17 mg/dL Critically high 0.55-1.02 [facility] Comment on above: Performed By: #### L IPID, BMP #### [facility] [address] [place] [address] Dr. Omid Bowden EGFR-AF SWISS 54 mL/min/1.73m2 Critically low >=60 [facility] Comment on above: Performed By: #### L IPID, BMP #### [facility] [address] [place] [address] Dr. Omid Bowden EGFR-NON AF SWISS 45 mL/min/1.73m2 Critically low >=60 [facility] Comment on above: Performed By: #### L IPID, BMP #### [facility] [address] [place] [address] [address] Omid Bowden Glucose [Mass/Vol] 193 mg/dL Critically high 74-106 [facility] Comment on above: Performed By: #### L IPID, BMP #### [facility] [address] [place] [address] Dr. Omid Bowden Potassium [Moles/Vol] 3.3 mmol/L Critically low 3.5-5.1 [facility] Comment on above: Performed By: #### L IPID, BMP #### [facility] [address] [address] [address] Omid Bowden Sodium [Moles/Vol] 140 mmol/L Normal 136-145 [facility] Comment on above: Performed By: #### L IPID, BMP #### [facility] [address] [place] [address] [address] Omid Bowden Urea nitrogen [Mass/Vol] 31.0 mg/dL Critically high 7.0-18.0 [facility] Comment on above: Performed By: #### L IPID, BMP #### [facility] [address] [place] [address] [address] Omid Bowden Urea nitrogen/Creatinine [Mass ratio] 26.5 mg/mg Normal [facility] Comment on above: Performed By: #### L IPID, BMP #### [facility] [address] [place] [address] [address] Omid Bowden Facesheeton 09-13-2022 Facesheet [id number]#1.0 0CD:127 Normal [facility] Consultation Noteon 09-01-20 Consultation Note [id number]#1.0 0CD:127 Normal [facility] ED Note-Physicianon 09-01-20 ED Note-Physician [id number]#1.0 0CD:127 Normal [facility] Lab Reportson 09-01-2022 Lab Reports [id number]#1.0 0CD:127 Normal [facility] Lab Reports [id number]#1.0 0CD:127 Normal [facility] Physician Referralon 022 Physician Referral [id number]#1.0 0CD:127 Normal [facility] C. DIFF PCRon 08-23-2022 C. DIFFICILE PCR Negative Normal NEGATIVE [facility] Comment on above: Performed By: #### C DIFPOC ####[facility] [address] [place] [address]Dr. Omid Bowden CBC AUTO DIFFon 08-19-2022 BASO # 0.0 103/ul Normal 0.0-0.1 [facility] Comment on above: Performed By: #### C BC ####[facility] [address] [place] [address]Dr. Omid Kal Basophils/100 WBC (Bld) 0.3 % Normal 0.2-2.0 [facility] Comment on above: Performed By: #### C BC ####[facility] [address] [place] [address]Dr. Omid Bowden EO # 0.5 103/ul Normal 0.0-0.7 [facility] Comment on above: Performed By: #### C BC ####[facility] [address] [place] [address]Dr. Omid Bowden Eosinophils/100 WBC (Bld) 3.2 % Normal 0.9-7.0 [facility] Comment on above: Performed By: #### C BC ####[facility] [address] [place] [address]Dr. Omid Bowden Erythrocyte distribution width (RBC) [Ratio] 14.1 % Normal 11.0-15.0 [facility] Comment on above: Performed By: #### C BC ####[facility] [address] [place] [address]Dr. Omid Bowden Hematocrit (Bld) [Volume fraction] 36.1 % Normal 36.0-48.0 [facility] Comment on above: Performed By: #### C BC ####[facility] [address] [place] [address]Dr. Omid Bowden Hemoglobin (Bld) [Mass/Vol] 11.7 g/dL Critically low 12.0-16.0 [facility] Comment on above: Performed By: #### C BC ####[facility] [address] [place] [id number]. Omid Bowden IG # 0.08 10e3/ul Critically high 0.00-0.03 [facility] Comment on above: Performed By: #### C BC ####[facility] [address] [place] [id number]. Omid Bowden IG % 0.5 % Normal 0.0-0.5 [facility] Comment on above: Performed By: #### C BC ####[facility] [address] [place] [address]Dr. Omid Kal LYMPH # 1.2 103/ul Normal 1.2-3.8 [facility] Comment on above: Performed By: #### C BC ####[facility] [address] [place] [address]Dr. Omid Bowden Lymphocytes/100 WBC (Bld) 7.5 % Critically low 20.5-60.0 [facility] Comment on above: Performed By: #### C BC ####[facility] [address] [place] [address]Dr. Aixamegan Bowden MANUAL DIFF REQ NO Normal [facility] Comment on above: Performed By: #### C BC ####[facility] [address] [place] [address]Dr. Omid Bowden MCH (RBC) [Entitic mass] 29.2 pg Normal 26.7-34.0 [facility] Comment on above: Performed By: #### C BC ####[facility] [address] [place] [address]Dr. Omid Kal MCHC (RBC) [Mass/Vol] 32.4 g/dL Normal 29.9-35.2 [facility] Comment on above: Performed By: #### C BC ####[facility] [address] [place] [address]Dr. Omid Kal MCV (RBC) [Entitic vol] 90.0 fL Normal 81.0-99.0 [facility] Comment on above: Performed By: #### C BC ####[facility] [address] [place] [id number]. Omid Bowden MONO # 1.0 103/ul Critically high 0.3-0.8 [facility] Comment on above: Performed By: #### C BC ####[facility] [address] [place] [id number]. Omid Bowden Monocytes/100 WBC (Bld) 6.8 % Normal 1.7-12.0 [facility] Comment on above: Performed By: #### C BC ####[facility] [address] [place] [id number]. Omid Bowden NEUT # 12.5 103/ul Critically high 1.4-6.5 [facility] Comment on above: Performed By: #### C BC ####[facility] [address] [place] [address]Dr. Omid Bowden Neutrophils/100 WBC (Bld) 81.7 % Critically high 43.0-75.0 [facility] Comment on above: Performed By: #### C BC ####[facility] [address] [place] [id number]. Omid Bowden Platelet mean volume (Bld) [Entitic vol] 8.9 fL Critically low 9.5-13.5 [facility] Comment on above: Performed By: #### C BC ####[facility] [address] [place] [id number]. Omid Bowden PLT 252 103/ul Normal 150-450 [facility] Comment on above: Performed By: #### C BC ####[facility] [address] [place] [id number]. Omid Bowden RBC 4.01 106/ul Critically low 4.20-5.40 [facility] Comment on above: Performed By: #### C BC ####[facility] [address] [place] [id number]. Omid Bowden WBC 15.3 103/ul Critically high 4.0-11.0 [facility] Comment on above: Performed By: #### C BC ####[facility] [address] [place], [place] [address]Dr. Omid Bowden IRONon 08-19-2022 Iron [Mass/Vol] 59.0 ug/dL Normal 50.0-170.0 [facility] Comment on above: Performed By: #### H GB #### [facility] [address] [place], [place] [address] Dr. Omid Bowden MAMMO POST BIOPSY RIGHTon MAMMO POST BIOPSY RIGHT Patient: HARMAN MCLEOD Exam Date: 08/19/2022 : 1940 Gender:F Ordering : DR MATEUS PERRY . Admission #: [id number] Family : Order #: [id number] CLICK HERE TO VIEW EXAM This report [...] Bauman MD on 09/06/2022 at 09:57 Normal [facility] PROTIMEon 08-19-2022 INR Coag (PPP) [Relative time] 0.99 {INR} Normal [facility] Comment on above: Performed By: #### P T, PTT ####[facility] [address] [place], [place] [address]NhDr. Omid Bowden INR GUIDELINES SEE BELOW Normal [facility] Comment on above: Result Comment: PERLITA RED INR: 2.0 - 3.0 CONDITIONS NOT LISTED BELOW 2.5 - 3.5 FOR PROSTHETIC HEART VALVE REPLACEMENT 2.5 - 3.5 RECURRENT THROMBOSIS Performed By: #### P T, PTT ####[facility] [address] [place], [place] [address]Zv. Omid Bowden PT Coag (PPP) [Time] 10.7 s Normal 9.0-11.6 [facility] Comment on above: Performed By: #### P T, PTT ####[facility] [address] [place], [place] [address]Ch. Omid Bowden PTTon 08-19-2022 aPTT Coag (Bld) [Time] 26.0 s Normal 22.3-36.2 [facility] Comment on above: Performed By: #### P T, PTT ####[facility] [address] [place], [place] [address]L[address]. Omid Bowden US VAC ASST BX BRST RT W CLI Jose Maria 08-19-2022 US VAC ASST BX BRST RT W CLIP Patient: HARMAN MCLEOD Exam Date: 08/19/2022 : 1940 Gender:F Ordering : DR MATEUS PERRY . Admission #: [id number] Family : Order #: [id number] CLICK HERE TO VIEW EXAM This report [...] MD on 09/06/2022 at 09:55 Normal [facility] CULTURE URINEon 08-16-2022 CULTURE URINE [...] F Nitrofurantoin <=16 S F Normal [facility] Comment on above: Performed By: #### U RCX ####[facility] [address] [place] [address]Dr. Omid Bowden CARDIAC ADILIA ADMITon 022 CK [Catalytic activity/Vol] 128 U/L Normal 26-192 [facility] Comment on above: Performed By: #### L IPID, BMP #### [facility] [address] [place] [address] [address] Omid Bowden CK.MB [Mass/Vol] 2.88 ng/mL Normal <=3.60 [facility] Comment on above: Performed By: #### L IPID, BMP #### [facility] [address] [place] [address] [address] Omid Bowden HSTROP 24.1 pg/mL Normal 4.0-51.3 [facility] Comment on above: Result Comment: CUT- OFF POINTS HAVE BEEN ESTABLISHED BASED ON THE FOURTH UNIVERSAL DEFINITIONS OF MYOCARDIAL INFARCTION. THE UPPER REFERENCE LIMIT (URL) OF TROPONIN, DEFINED THE 99TH PERCENTILE OF cTnI DISTRIBUTION IN A REFERENCE POPULATION, HAS BEEN CONFIRMED THE DECISION THRESHOLD FOR AR DIAGNOSIS. Performed By: #### L IPID, BMP #### [facility] [address] [address] [address] Omid Bowden JACINTA 61 ng/mL Normal 9-82 [facility] Comment on above: Performed By: #### L IPID, BMP #### [facility] [address] [place] [address] Dr. Omid Bowden CBC AUTO DIFFon 08-14-2022 BASO # 0.0 103/ul Normal 0.0-0.1 [facility] Comment on above: Performed By: #### H GB #### [facility] [address] [place] [address] Dr. Omid Bowden Basophils/100 WBC (Bld) 0.4 % Normal 0.2-2.0 [facility] Comment on above: Performed By: #### H GB #### [facility] [address] [place] [address] Dr. Omid Bowden EO # 0.3 103/ul Normal 0.0-0.7 [facility] Comment on above: Performed By: #### H GB #### [facility] [address] [place] [address] Dr. Omid Bowden Eosinophils/100 WBC (Bld) 2.6 % Normal 0.9-7.0 [facility] Comment on above: Performed By: #### H GB #### [facility] [address] [place] [address] Dr. Omid Bowden Erythrocyte distribution width (RBC) [Ratio] 14.1 % Normal 11.0-15.0 [facility] Comment on above: Performed By: #### H GB #### [facility] [address] [place] [address] Dr. Omid Bowden Hematocrit (Bld) [Volume fraction] 35.5 % Critically low 36.0-48.0 [facility] Comment on above: Performed By: #### H GB #### [facility] [address] [place] [address] Dr. Omid Bowden Hemoglobin (Bld) [Mass/Vol] 11.6 g/dL Critically low 12.0-16.0 [facility] Comment on above: Performed By: #### H GB #### [facility] [address] [place] [address] [address] Omid Bowden IG # 0.06 10e3/ul Critically high 0.00-0.03 [facility] Comment on above: Performed By: #### H GB #### [facility] [address] [place] [address] Dr. Omid Bowden IG % 0.6 % Critically high 0.0-0.5 [facility] Comment on above: Performed By: #### H GB #### [facility] [address] [place] [address] Dr. Omid Bowden LYMPH # 3.4 103/ul Normal 1.2-3.8 [facility] Comment on above: Performed By: #### H GB #### [facility] [address] [place] [address] Dr. Omid Bowden Lymphocytes/100 WBC (Bld) 35.5 % Normal 20.5-60.0 [facility] Comment on above: Performed By: #### H GB #### [facility] [address] [place] [address] Dr. Omid Bowden MANUAL DIFF REQ NO Normal [facility] Comment on above: Performed By: #### H GB #### [facility] [address] [place] [address] Dr. Omid Bowden MCH (RBC) [Entitic mass] 29.5 pg Normal 26.7-34.0 [facility] Comment on above: Performed By: #### H GB #### [facility] [address] [place] [address] Dr. Omid Bowden MCHC (RBC) [Mass/Vol] 32.7 g/dL Normal 29.9-35.2 [facility] Comment on above: Performed By: #### H GB #### [facility] [address] [place] [address] Dr. Omid Bowden MCV (RBC) [Entitic vol] 90.3 fL Normal 81.0-99.0 [facility] Comment on above: Performed By: #### H GB #### [facility] [address] [place] [address] Dr. Omid Bowden MONO # 1.0 103/ul Critically high 0.3-0.8 [facility] Comment on above: Performed By: #### H GB #### [facility] [address] [place] [address] Dr. Omid Bowden Monocytes/100 WBC (Bld) 10.5 % Normal 1.7-12.0 [facility] Comment on above: Performed By: #### H GB #### [facility] [address] [place] [address] Dr. Omid Bowden NEUT # 4.8 103/ul Normal 1.4-6.5 [facility] Comment on above: Performed By: #### H GB #### [facility] [address] [place] [address] Dr. Omid Bowden Neutrophils/100 WBC (Bld) 50.4 % Normal 43.0-75.0 [facility] Comment on above: Performed By: #### H GB #### [facility] [address] [place] [address] Dr. Omid Bowden Platelet mean volume (Bld) [Entitic vol] 9.1 fL Critically low 9.5-13.5 [facility] Comment on above: Performed By: #### H GB #### [facility] [address] [place] [address] Dr. Omid Bowden PLT 276 103/ul Normal 150-450 [facility] Comment on above: Performed By: #### H GB #### [facility] [address] [place] [address] Dr. Omid Bowden RBC 3.93 106/ul Critically low 4.20-5.40 [facility] Comment on above: Performed By: #### H GB #### [facility] [address] [place] [address] Dr. Omid Bowden WBC 9.5 103/ul Normal 4.0-11.0 [facility] Comment on above: Performed By: #### H GB #### [facility] [address] [place] [address] Dr. Omid Bowden ER URINE PROFILEon 2 Bilirubin Ql (U) Negative Normal NEGATIVE [facility] Comment on above: Performed By: #### U MICRO, ERUR ####[facility] [address] [place], [place] [address]Dr. Omid Bowden Clarity (U) CLEAR Normal CLEAR [facility] Comment on above: Performed By: #### U MICRO, ERUR ####[facility] [address] [place] [address]Dr. Omid Bowden Color (U) LT. YELLOW Normal YELLOW [facility] Comment on above: Performed By: #### U MICRO, ERUR ####[facility] [address] [place] [address]Dr. Omid Bowden ERUAHD A micrscopic examination will be performed if indicated. Normal [facility] Comment on above: Performed By: #### U MICRO, ERUR ####[facility] [address] [place] [address]Dr. Omid Bowden Glucose Ql (U) Negative Normal NEGATIVE [facility] Comment on above: Performed By: #### U MICRO, ERUR ####[facility] [address] [place] [address]Dr. Omid Bowden Hemoglobin Ql (U) Negative Normal NEGATIVE [facility] Comment on above: Performed By: #### U MICRO, ERUR ####[facility] [address] [place] [address]Dr. Omid Bowden Ketones Ql (U) Negative Normal NEGATIVE [facility] Comment on above: Performed By: #### U MICRO, ERUR ####[facility] [address] [place], [place] [address]Dr. Omid Bowden LEUKOCYTES TRACE Abnormal NEGATIVE [facility] Comment on above: Performed By: #### U MICRO, ERUR ####[facility] [address] [place] [address]Dr. Omid Bowden Nitrite Ql (U) Negative Normal NEGATIVE [facility] Comment on above: Performed By: #### U MICRO, ERUR ####[facility] [address] [place] [address]Dr. Omid Bowden pH (U) 6.0 [pH] Normal 5-9 [facility] Comment on above: Performed By: #### U MICRO, ERUR ####[facility] [address] [place] [address]DrMedardo Bowden SPEC GRAVITY 1.020 Normal 1.005-<=1.0 25 [facility] Comment on above: Performed By: #### U MICRO, ERUR ####[facility] [address] [place] [address]DrMedardo Bowden UA PROTEIN Negative Normal NEGATIVE/ TRACE [facility] Comment on above: Performed By: #### U MICRO, ERUR ####[facility] [address] [place] [address]Dr. Omid Bowden UR MICRO IND INDICATED Normal [facility] Comment on above: Performed By: #### U MICRO, ERUR ####[facility] [address] [place] [address]Dr. Omid Bowden Urobilinogen Qn (U) 0.2 {Jose'U}/dL Normal 0.2 - 1. 0 [facility] Comment on above: Performed By: #### U MICRO, ERUR ####[facility] [address] [place] [address]DrMedardo Bowden OCC BLD IMMUNO SCREENon OCCULT BLOOD Negative Normal NEGATIVE [facility] Comment on above: Performed By: #### O BSCRN #### [facility] [address] [address] [address] Omid Bowden PROF CHEM 8 (BAS METB)on Anion gap [Moles/Vol] 5.5 mmol/L Normal [facility] Comment on above: Performed By: #### L IPID, BMP #### [facility] [address] [address] [address] Omid Bowden Calcium [Mass/Vol] 8.6 mg/dL Normal 8.5-10.1 [facility] Comment on above: Performed By: #### L IPID, BMP #### [facility] [address] [place] [address] Dr. Omid Bowden Chloride [Moles/Vol] 103 mmol/L Normal 98-107 [facility] Comment on above: Performed By: #### L IPID, BMP #### [facility] [address] [address] [address] Omid Bowden CO2 [Moles/Vol] 31.8 mmol/L Normal 21.0-32.0 [facility] Comment on above: Performed By: #### L IPID, BMP #### [facility] [address] [address] [address] Omid Bowden Creatinine [Mass/Vol] 0.99 mg/dL Normal 0.55-1.02 [facility] Comment on above: Performed By: #### L IPID, BMP #### [facility] [address] [place] [address] Dr. Omid Bowden EGFR-AF SWISS >60 Normal >=60 [facility] Comment on above: Performed By: #### L IPID, BMP #### [facility] [address] [place] [address] Dr. Omid Bowden EGFR-NON AF SWISS 54 mL/min/1.73m2 Critically low >=60 [facility] Comment on above: Performed By: #### L IPID, BMP #### [facility] [address] [place] [address] Dr. Omid Bowden Glucose [Mass/Vol] 112 mg/dL Critically high 74-106 [facility] Comment on above: Performed By: #### L IPID, BMP #### [facility] [address] [place] [address] Dr. Omid Bowden Potassium [Moles/Vol] 3.3 mmol/L Critically low 3.5-5.1 [facility] Comment on above: Performed By: #### L IPID, BMP #### [facility] [address] [place] [address] Dr. Omid Bowden Sodium [Moles/Vol] 137 mmol/L Normal 136-145 [facility] Comment on above: Performed By: #### L IPID, BMP #### [facility] [address] [address] [address] Omid Bowden Urea nitrogen [Mass/Vol] 20.0 mg/dL Critically high 7.0-18.0 [facility] Comment on above: Performed By: #### L IPID, BMP #### [facility] [address] [address] [address] Omid Bowden Urea nitrogen/Creatinine [Mass ratio] 20.2 mg/mg Normal [facility] Comment on above: Performed By: #### L IPID, BMP #### [facility] [address] [address] [address] Omid Bowden URINE MICROSCOPIC ONLYon BACTERIA TRACE Abnormal NONE SEEN [facility] Comment on above: Performed By: #### U MICRO, ERUR ####[facility] [address] [place] [address]Dr. Omid Bowden Bacteria identified Cx Nom (U) INDICATED Normal [facility] Comment on above: Performed By: #### U MICRO, ERUR ####[facility] [address] [place] [address]Dr. Omid Bowden CAST NONE SEEN Normal NONE SEEN [facility] Comment on above: Performed By: #### U MICRO, ERUR ####[facility] [address] [place] [address]Dr. Omid Bowden Crystals LM Nom (Urine sed) NONE SEEN Normal NONE SEEN [facility] Comment on above: Performed By: #### U MICRO, ERUR ####[facility] [address] [place] [address]Dr. Omid Bowden Epithelial cells LM Ql (Urine sed) FEW Abnormal NONE SEEN /RARE [facility] Comment on above: Performed By: #### U MICRO, ERUR ####[facility] [address] [place] [address]Dr. Omid Bowden MUCOUS NONE SEEN Normal NONE SEEN [facility] Comment on above: Performed By: #### U MICRO, ERUR ####[facility] [address] [place] [address]DrMedardo Bowden RBC 0-2 Normal 0-2 [facility] Comment on above: Performed By: #### U MICRO, ERUR ####[facility] [address] [place], [place] [address]Si. Omid Bowden WBC 20-50 Abnormal NONE SEEN [facility] Comment on above: Performed By: #### U MICRO, ERUR ####[facility] [address] [place], [place] [address]Cm. Omid Bowden XR CHEST 1 Von 08-14-2022 [...] [place] Date: 2022-08-14 00:46 Normal [facility] Covid-19 PCR (CVDTBH)on SARS-CoV-2 (COVID-19) RNA MARII+probe Ql (Unsp spec) Not detected Normal NOT DETECTED [facility] Comment on above: Result Comment: [...] for this test is supported by the Liquor Rectifier of Health and Human Service's declaration that [...] used). Performed By: #### C VDTBH #### [facility] [address] [place], [place] [address] Dr. Omid Bowden MG MAMM RT DIAG FUon 022 MG MAMM RT DIAG FU Patient: HARMAN MCLEOD Exam Date: 08/08/2022 : 1940 Gender:F Ordering : DR MATEUS PERRY . Admission #: [id number] Family : Order #: [id number] CLICK HERE TO VIEW EXAM RADIOLOGY REPORT [...] uterine cancer at age 39. LOCATION: [facility] BREAST COMPOSITION: Scattered areas fibroglandular [...] M.D. on 08/08/2022 at 15:28 Normal [facility] PROF CHEM 8 (BAS METB)on Anion gap [Moles/Vol] 9.3 mmol/L Normal [facility] Comment on above: Performed By: #### B MP #### [facility] [address] [place] [address] Dr. Omid Bowden Calcium [Mass/Vol] 8.1 mg/dL Critically low 8.5-10.1 [facility] Comment on above: Performed By: #### B MP #### [facility] [address] [place] [address] Dr. Omid Bowden Chloride [Moles/Vol] 100 mmol/L Normal 98-107 [facility] Comment on above: Performed By: #### B MP #### [facility] [address] [address] [address] Omid Bowden CO2 [Moles/Vol] 31.9 mmol/L Normal 21.0-32.0 [facility] Comment on above: Performed By: #### B MP #### [facility] [address] [address] [address] Omid Bowden Creatinine [Mass/Vol] 1.25 mg/dL Critically high 0.55-1.02 [facility] Comment on above: Performed By: #### B MP #### [facility] [address] [place] [address] Dr. Omid Bowden EGFR-AF SWISS 50 mL/min/1.73m2 Critically low >=60 [facility] Comment on above: Performed By: #### B MP #### [facility] [address] [place] [address] Dr. Omid Bowden EGFR-NON AF SWISS 41 mL/min/1.73m2 Critically low >=60 [facility] Comment on above: Performed By: #### B MP #### [facility] [address] [address] [address] Omid Bowden Glucose [Mass/Vol] 215 mg/dL Critically high 74-106 [facility] Comment on above: Performed By: #### B MP #### [facility] [address] [address] [address] Omid Bowden Potassium [Moles/Vol] 3.2 mmol/L Critically low 3.5-5.1 [facility] Comment on above: Performed By: #### B MP #### [facility] [address] [address] [address] Omid Bowden Sodium [Moles/Vol] 138 mmol/L Normal 136-145 [facility] Comment on above: Performed By: #### B MP #### [facility] [address] [place], [place] [address] Dr. Omid Bowden Urea nitrogen [Mass/Vol] 32.0 mg/dL Critically high 7.0-18.0 [facility] Comment on above: Performed By: #### B MP #### [facility] [address] [place], [place] [address] Dr. Omid Bowden Urea nitrogen/Creatinine [Mass ratio] 25.6 mg/mg Normal [facility] Comment on above: Performed By: #### B MP #### [facility] [address] [place], [place] [address] Dr. Omid Bowden US BREAST RIGHT LIMITEDon US BREAST RIGHT LIMITED Patient: HARMAN MCLEOD Exam Date: 08/08/2022 : 1940 Gender:F Ordering : DR MATEUS PERRY . Admission #: [id number] Family : Order #: [id number] CLICK HERE TO VIEW EXAM RADIOLOGY REPORT [...] uterine cancer at age 39. LOCATION: [facility] BREAST COMPOSITION: Scattered areas fibroglandular [...] George M.D. on 08/08/2022 at 15:28 Normal [facility] CALCIUMon 08-02-2022 Calcium [Mass/Vol] 8.9 mg/dL Normal 8.5-10.1 [facility] Comment on above: Performed By: #### H GB #### [facility] [address] [address] [address] Omid Bowden CREATININEon 08-02-2022 Creatinine [Mass/Vol] 1.19 mg/dL Critically high 0.55-1.02 [facility] Comment on above: Performed By: #### H GB #### [facility] [address] [address] [address] Omid Bowden EGFR-AF SWISS 53 mL/min/1.73m2 Critically low >=60 [facility] Comment on above: Performed By: #### H GB #### [facility] [address] [address] [address] Omid oBwden EGFR-NON AF SWISS 44 mL/min/1.73m2 Critically low >=60 [facility] Comment on above: Performed By: #### H GB #### [facility] [address] [address] [address] Omid Bowden MG MAMM SCREEN 3D DAVID CADon 07-19-2022 MG MAMM SCREEN 3D DAVID CAD Patient: HARMAN MCLEOD Exam Date: 07/19/2022 : 1940 Gender:F Ordering : DR MATEUS PERRY . Admission #: [id number] Family : Order #: [id number] CLICK HERE TO VIEW EXAM RADIOLOGY REPORT [...] uterine cancer at age 39. LOCATION: [facility] BREAST COMPOSITION: Scattered areas fibroglandular [...] Bauman MD on 07/20/2022 at 07:33 Normal [facility] XR DEXA BONE DENSITYon 07-19 XR DEXA [...] by: JUDSON BAUMAN Date: 2022-07-19 20:17 Normal [facility] CALCIUM, IONIC (POC)on 06-28 POC Ionized Calcium 1.21 mmol/L 1.15 - 1 .33 mmol/L [facility] CHLORIDE (POC)on 06-28-2022 Chloride [Moles/Vol] 103 mmol/L 98 - 10 7 mmol/L [facility] [employer] Creatinine W/GFR Point of Ca reon 06-28-2022 Creatinine [Mass/Vol] 0.93 mg/dL 0.51 - 1.19 mg/dL [facility] eGFR, POC mL/min/1.73 m2 [facility] Comment on above: Effective Jun 13, [...] 1.56 mmol/L High 0.56 - 1.39 mmol/L [facility] No Panel Informationon 06-28 Interpretation and review of laboratory results Abnormal [facility] POC Glucose Fingerstickon Glucose [Mass/Vol] 135 mg/dL High 65 - 105 mg/dL [facility] Interpretation and review of laboratory results Abnormal [facility] POCT Glucoseon 06-28-2022 Glucose [Mass/Vol] 147 mg/dL High 74 - 100 mg/dL [facility] POCT urea (BUN)on 06-28-2022 Urea nitrogen [Mass/Vol] 20 mg/dL 8 - 26 mg/dL [facility] POTASSIUM (POC)on 06-28-2022 Potassium [Moles/Vol] 3.7 mmol/L 3.5 - 4.5 mmol/L [facility] SODIUM (POC)on 06-28-2022 Sodium [Moles/Vol] 141 mmol/L 138 - 146 mmol/L [facility] PROF CHEM 8 (BAS METB)on Anion gap [Moles/Vol] 9.0 mmol/L Normal [facility] Comment on above: Performed By: #### B MP ####[facility] [address] [place] [id number]. Omid Bowden Calcium [Mass/Vol] 9.0 mg/dL Normal 8.5-10.1 [facility] Comment on above: Performed By: #### B MP ####[facility] [address] [place], [place] [address]QmMedardo Bowden Chloride [Moles/Vol] 98 mmol/L Normal 98-107 [facility] Comment on above: Performed By: #### B MP ####[facility] [address] [place] [address]Dr. Omid Bowden CO2 [Moles/Vol] 33.2 mmol/L Critically high 21.0-32.0 [facility] Comment on above: Performed By: #### B MP ####[facility] [address] [place] [address]Dr. Omid Bowden Creatinine [Mass/Vol] 1.32 mg/dL Critically high 0.55-1.02 [facility] Comment on above: Performed By: #### B MP ####[facility] [address] [place] [address]Dr. Omid Bowden EGFR-AF SWISS 47 mL/min/1.73m2 Critically low >=60 [facility] Comment on above: Performed By: #### B MP ####[facility] [address] [place] [address]Dr. Omid Bowden EGFR-NON AF SWISS 39 mL/min/1.73m2 Critically low >=60 [facility] Comment on above: Performed By: #### B MP ####[facility] [address] [place] [address]Dr. Omid Bowden Glucose [Mass/Vol] 220 mg/dL Critically high 74-106 [facility] Comment on above: Performed By: #### B MP ####[facility] [address] [place] [address]DrMedardo Bowden Potassium [Moles/Vol] 3.2 mmol/L Critically low 3.5-5.1 [facility] Comment on above: Performed By: #### B MP ####[facility] [address] [place] [address]Dr. Omid Bowden Sodium [Moles/Vol] 137 mmol/L Normal 136-145 [facility] Comment on above: Performed By: #### B MP ####[facility] [address] [place], [place] [address]DrMedardo Bowden Urea nitrogen [Mass/Vol] 31.0 mg/dL Critically high 7.0-18.0 [facility] Comment on above: Performed By: #### B MP ####[facility] [address] [place], [place] [address]Mm. Omid Bowden Urea nitrogen/Creatinine [Mass ratio] 23.5 mg/mg Normal [facility] Comment on above: Performed By: #### B MP ####[facility] [address] [place], [place] [address]Mj. Omid Bowden ECHOCARDIO M/2D COMPLETEon 0 04-12-2022 ECHOCARDIO M/2D COMPLETE Patient: HARMAN MCLEOD Exam Date: 04/12/2022 : 1940 Gender:F Ordering : S[facility] Admission #: [id number] Family : Order #: [id number] CLICK HERE TO VIEW EXAM ECHOCARDIOGRAM REPORT [...] Keyes M.D. on 04/12/2022 at 19:15 Normal [facility] PROF CHEM 8 (BAS METB)on Anion gap [Moles/Vol] 12.4 mmol/L Normal [facility] Comment on above: Performed By: #### B MP ####[facility] [address] [place] [address]Dr. Omid Bowden Calcium [Mass/Vol] 9.1 mg/dL Normal 8.5-10.1 [facility] Comment on above: Performed By: #### B MP ####[facility] [address] [place] [address]Dr. Omid Bowden Chloride [Moles/Vol] 100 mmol/L Normal 98-107 [facility] Comment on above: Performed By: #### B MP ####[facility] [address] [place] [id number]. Omid Bowden CO2 [Moles/Vol] 33.0 mmol/L Critically high 21.0-32.0 [facility] Comment on above: Performed By: #### B MP ####[facility] [address] [place] [address]Dr. Omid Bowden Creatinine [Mass/Vol] 1.15 mg/dL Critically high 0.55-1.02 [facility] Comment on above: Performed By: #### B MP ####[facility] [address] [place] [address]Dr. Omid Bowden EGFR-AF SWISS 55 mL/min/1.73m2 Critically low >=60 [facility] Comment on above: Performed By: #### B MP ####[facility] [address] [place] [address]Dr. Omid Bowden EGFR-NON AF SWISS 46 mL/min/1.73m2 Critically low >=60 [facility] Comment on above: Performed By: #### B MP ####[facility] [address] [place] [address]Dr. Omid Bowden Glucose [Mass/Vol] 167 mg/dL Critically high 74-106 [facility] Comment on above: Performed By: #### B MP ####[facility] [address] [place] [address]Dr. Omid Bowden Potassium [Moles/Vol] 3.4 mmol/L Critically low 3.5-5.1 [facility] Comment on above: Performed By: #### B MP ####[facility] [address] [place] [address]Dr. Omid Bowden Sodium [Moles/Vol] 142 mmol/L Normal 136-145 [facility] Comment on above: Performed By: #### B MP ####[facility] [address] [place] [address]Dr. Omid Bowden Urea nitrogen [Mass/Vol] 23.0 mg/dL Critically high 7.0-18.0 [facility] Comment on above: Performed By: #### B MP ####[facility] [address] [place] [address]Dr. Omid Bowden Urea nitrogen/Creatinine [Mass ratio] 20.0 mg/mg Normal [facility] Comment on above: Performed By: #### B MP ####[facility] [address] [place] [address]Dr. Omid Bowden SYMPTOMATIC COVID-19 ANTIGEN on 03-16-2022 EUA Statement SEE BELOW Normal [facility] Comment on above: Result Comment: This [...] Performed By: #### L IPID, BMP #### [facility] [address] [place] [address] Dr. Omid Bowden SARS-CoV-2 (COVID-19) RNA MARII+probe Ql (Unsp spec) Positive Critically abnormal NEGATIVE [facility] Comment on above: Performed By: #### L IPID, BMP #### [facility] [address] [place] [address] Dr. Omid Bowden HEMOGLOBINon 03-15-2022 Hemoglobin (Bld) [Mass/Vol] 12.3 g/dL Normal 12.0-16.0 [facility] Comment on above: Performed By: #### H GB #### [facility] [address] [place] [address] Dr. Omid Bowden BNPon 02-15-2022 Natriuretic peptide B (Bld) [Mass/Vol] 598.0 pg/mL Normal <=1,800.0 [facility] Comment on above: Performed By: #### L IPID, BMP #### [facility] [address] [place] [address] Dr. Omid Bowden PROF CHEM 8 (BAS METB)on Anion gap [Moles/Vol] 11.9 mmol/L Normal [facility] Comment on above: Performed By: #### L IPID, BMP #### [facility] [address] [place] [address] Dr. Omid Bowden Calcium [Mass/Vol] 9.1 mg/dL Normal 8.5-10.1 [facility] Comment on above: Performed By: #### L IPID, BMP #### [facility] [address] [place] [address] Dr. Omid Bowden Chloride [Moles/Vol] 98 mmol/L Normal 98-107 [facility] Comment on above: Performed By: #### L IPID, BMP #### [facility] [address] [address] [address] Omid Bowden CO2 [Moles/Vol] 33.2 mmol/L Critically high 21.0-32.0 [facility] Comment on above: Performed By: #### L IPID, BMP #### [facility] [address] [address] [address] Omid Bowden Creatinine [Mass/Vol] 1.28 mg/dL Critically high 0.55-1.02 [facility] Comment on above: Performed By: #### L IPID, BMP #### [facility] [address] [address] [address] Omid Bowden EGFR-AF SWISS 49 mL/min/1.73m2 Critically low >=60 [facility] Comment on above: Performed By: #### L IPID, BMP #### [facility] [address] [address] [address] Omid Bowden EGFR-NON AF SWISS 40 mL/min/1.73m2 Critically low >=60 [facility] Comment on above: Performed By: #### L IPID, BMP #### [facility] [address] [address] [address] Omid Bowden Glucose [Mass/Vol] 182 mg/dL Critically high 74-106 [facility] Comment on above: Performed By: #### L IPID, BMP #### [facility] [address] [address] [address] Omid Bowden Potassium [Moles/Vol] 3.1 mmol/L Critically low 3.5-5.1 [facility] Comment on above: Performed By: #### L IPID, BMP #### [facility] [address] [address] [address] Omid Bowden Sodium [Moles/Vol] 140 mmol/L Normal 136-145 [facility] Comment on above: Performed By: #### L IPID, BMP #### [facility] [address] [address] [address] Omid Bowden Urea nitrogen [Mass/Vol] 30.0 mg/dL Critically high 7.0-18.0 [facility] Comment on above: Performed By: #### L IPID, BMP #### [facility] [address] [place], [place] [address] Dr. Omid Bowden Urea nitrogen/Creatinine [Mass ratio] 23.4 mg/mg Normal [facility] Comment on above: Performed By: #### L IPID, BMP #### [facility] [address] [place], [place] [address] Dr. Omid Bowden XR CHEST 2 Von [...] ALFONSO GEORGE Date: 2022-02-09 11:53 Normal [facility] No Panel Informationon 12-13 [employer] POCT Glucoseon 12-13-2021 Glucose [Mass/Vol] 196 mg/dL High 74 - 100 mg/dL [employer] Interpretation and review of laboratory results Abnormal [employer] POTASSIUM (POC)on 12-13-2021 Potassium [Moles/Vol] 3.7 mmol/L 3.5 - 4.5 mmol/L [employer] TYPE AND SCREENon 12-10-2021 ABO/Rh Positive [employer] Arm Band Number [id number] [employer] [facility] lt Expiration Date 12/16/2021,2359 [employer] EKG 12 leadOrdered By: Dennis Garcia on 12-07-2021 Atrial Rate 66 BPM [employer] Work Phone: P [place] 67 degrees [employer] Work Phone: P-R Interval 126 ms [employer] Work Phone: Q-T Interval 466 ms [employer] Work Phone: QRS Duration 150 ms [facility] Work Phone: QTc Calculation (Bazett) 488 ms [facility] Work Phone: R [place] 32 degrees [facility] Work Phone: T [place] 161 degrees [facility] Work Phone: Ventricular Rate [address] [facility] Work Phone: Select [facility] Work Phone: EKG 12 leadon 12-07-2021 Sinus [...] wave inversion now evident in Inferior leads [facility] Work Phone: CBC auto differentialon 11-10 Absolute Eos # 0.13 [facility] th Absolute Immature Granulocyte 0.12 [facility] Absolute Lymph # 3.18 [facility] alth Absolute [place] # 1.22 High [facility] lt Basophils (Bld) [#/Vol] 0.05 10*3/uL [facility] Basophils/100 WBC (Bld) 0 % 0 - 2 % [facility] Eosinophils/100 WBC (Bld) 1 % 1 - 4 % [facility] Hematocrit (Bld) [Volume fraction] 38.4 % 36.3 - 47.1 % [facility] Hemoglobin.gastrointes tinal spec 1 Ql (Stl) 12.2 g/dL 11.9 - 15.1 g/dL [facility] Immature granulocytes/100 WBC (Bld) 1 % High 0 [facility] Interpretation and review of laboratory results Abnormal [facility] Lymphocytes/100 WBC (Bld) 25 % 24 - 43 % [facility] MCH (RBC) [Entitic mass] 29.9 pg 25.2 - 33.5 pg [facility] MCHC (RBC) [Mass/Vol] 31.8 g/dL 28.4 - 34.8 g/dL [facility] MCV (RBC) [Entitic vol] 94.1 fL 82.6 - 102.9 fL [facility] Monocytes/100 WBC (Bld) 10 % 3 - 12 % [facility] NRBC Automated 0.0 0.0 per 100 WBC [facility] Platelet distribution width (Bld) [Ratio] 14.5 % High 11.8 - 14.4 % [facility] Platelet mean volume (Bld) [Entitic vol] 10.1 fL 8.1 - 13.5 fL [facility] Platelets (Bld) [#/Vol] 266 10*3/uL [facility] RBC (Bld) [#/Vol] 4.08 10*6/uL 3.95 - 5.1 1 m/uL [facility] RBC (Bld) [#/Vol] ANISOCYTOSIS PRESENT [facility] Segmented neutrophils/100 WBC (Bld) 63 % 36 - 65 % [facility] Segs [facility] [#/Vol] 12.6 10*3/uL High [facility] Comprehensive Metabolic Pane l w/ Reflex to MGon 12-06-2021 Albumin [Mass/Vol] 3.7 g/dL 3.5 - 5.2 g/dL [facility] Albumin/Globulin [Mass ratio] 1.1 {ratio} [facility] ALP (Bld) [Catalytic activity/Vol] 93 U/L 35 - 104 U/L [facility] ALT [Catalytic activity/Vol] 12 U/L 5 - 33 U/L [facility] Anion gap [Moles/Vol] 14 mmol/L 9 - 17 mmol/L [facility] AST [Catalytic activity/Vol] 12 U/L <32 [facility] Bilirubin [Mass/Vol] 0.25 mg/dL Low 0.3 - 1 .2 mg/dL [facility] Calcium [Mass/Vol] 9.1 mg/dL 8.6 - 10. 4 mg/dL [facility] Chloride [Moles/Vol] 95 mmol/L Low 98 - 10 7 mmol/L [facility] CO2 [Moles/Vol] 30 mmol/L 20 - 31 mmol/L [facility] Creatinine [Mass/Vol] 1.07 mg/dL High 0.50 - 0.90 mg/dL [facility] Free PSA/Total PSA [Mass fraction] 7.2 g/dL 6.4 - 8.3 g/dL [facility] GFR 60 mL/min Low >60 [facility] GFR Non- 49 mL/min Low >60 [facility] GFR/1.73 sq M.predicted MDRD (S/P/Bld) [Vol rate/Area] [facility] Comment on above: Average GFR for 70 o r more years old: 75 mL/min/1.73sq m Chronic Kidney Disease: <60 mL/min/1.73sq m Kidney failure: <15 mL/min/1.73sq m eGFR calculated using average adult body mass. Additional eGFR calculator available at: http://www.ByteLight/United Prototype_crcl_2011.htm Glucose [Mass/Vol] 188 mg/dL High 70 - 99 mg/dL [facility] Interpretation and review of laboratory results Abnormal [facility] Potassium [Moles/Vol] 3.3 mmol/L Low 3.7 - 5.3 mmol/L [facility] Sodium [Moles/Vol] 139 mmol/L 135 - 144 mmol/L [facility] Urea nitrogen (BldV) [Mass/Vol] 22 mg/dL 8 - 23 mg/dL [facility] Magnesiumon 12-06-2021 Magnesium [Mass/Vol] 1.6 mg/dL 1.6 - 2 .6 mg/dL [facility] No Panel Informationon 12-06 No acute process. [facility] RIS CONSOLIDATED EXAMINATION: TWO XRAY [...] The osseous structures are without acute process. [facility] RIS CONSOLIDATED Kael Freeman MD [...] without acute process. IMPRESSION: No acute process. [facility] Phone: Radiology Study observation (narrative) [facility] Phone: No Panel InformationOrdered By: Kael Freeman on 12-06-2021 [facility] Phone: Creatinine W/GFR Point of Ca reOrdered By: Kin Abarca on 06-15-2021 Creatinine [Mass/Vol] 0.89 mg/dL 0.51 - 1.19 mg/dL [facility] Phone: GFR Non- >60 >60 mL/min [facility] Phone: GFR/1.73 sq M.predicted MDRD (S/P/Bld) [Vol rate/Area] mL/min/{1.73_m2} >60 mL/min [facility] Phone: GFR/1.73 sq M.predicted MDRD (S/P/Bld) [Vol rate/Area] [facility] Phone: Comment on above: Average GFR for 70 o r more years old: 75 mL/min/1.73sq m Chronic Kidney Disease: <60 mL/min/1.73sq m Kidney failure: <15 mL/min/1.73sq m eGFR calculated using average adult body mass. Additional eGFR calculator available at: http://www.Schmoozer.com/multiple_crcl_2012.htm No Panel InformationOrdered By: Kin Abarca on 06-15-2021 [facility] Phone: POC Glucose FingerstickOrder ed By: Kin Abarca on 06-15-2021 Glucose [Mass/Vol] 163 mg/dL High 65 - 105 mg/dL [facility] Phone: Interpretation and review of laboratory results Abnormal [facility] Phone: [facility] Phone: POCT GlucoseOrdered By: Kin Abarca on 06-15-2021 Glucose [Mass/Vol] 186 mg/dL High 74 - 100 mg/dL [facility] Phone: Interpretation and review of laboratory results Abnormal [facility] Phone: POTASSIUM (POC)Ordered By: Yuriy Abarca on 06-15-2021 Potassium [Moles/Vol] 4.5 mmol/L 3.5 - 4.5 mmol/L [facility] Phone: EKG 12 leadOrdered By: Antoni Burks on 05-13-2021 Atrial Rate 67 BPM [facility] Phone: P Streator 58 degrees [facility] Phone: P-R Interval 130 ms [facility] Phone: Q-T Interval 504 ms [facility] Phone: QRS Duration 144 ms [facility] Phone: QTc Calculation (Bazett) 532 ms [facility] Phone: R Streator 20 degrees [facility] Phone: T Streator 117 degrees [facility] Phone: Ventricular Rate 67 BPM [employer] Work Phone: Sinus rhythm with Premature atrial complexes Left bundle branch block Abnormal ECG No previous ECGs available [facility] Phone: Virgilio, Mhpn Incoming E kg Results From [facility] - 05/13/2021 1:30 PM EDT Sinus rhythm with Premature atrial complexes Left bundle branch block Abnormal ECG No previous ECGs available [facility] Phone: [facility] Phone: Basic Metabolic Panel w/ Ref alexis to MGOrdered By: Latonia Burks on 05-12-2021 Anion gap [Moles/Vol] 13 mmol/L 9 - 17 mmol/L [facility] Phone: Calcium [Mass/Vol] 9.4 mg/dL 8.6 - 10. 4 mg/dL [facility] Phone: Chloride [Moles/Vol] 102 mmol/L 98 - 10 7 mmol/L [facility] Phone: CO2 [Moles/Vol] 28 mmol/L 20 - 31 mmol/L [facility] Phone: Creatinine [Mass/Vol] 0.94 mg/dL High 0.50 - 0.90 mg/dL [facility] Phone: GFR >60 >60 mL/min [employer] Phone: GFR Non- 58 mL/min Low >60 [facility] Phone: GFR/1.73 sq M.predicted MDRD (S/P/Bld) [Vol rate/Area] [facility] Phone: Comment on above: Average GFR for 70 o r more years old: 75 mL/min/1.73sq m Chronic Kidney Disease: <60 mL/min/1.73sq m Kidney failure: <15 mL/min/1.73sq m eGFR calculated using average adult body mass. Additional eGFR calculator available at: http://www.Schmoozer.[employer]inging [employer]/multiple_crcl_2012.htm GFR/1.73 sq M.predicted MDRD (S/P/Bld) [Vol rate/Area] NOT REPORTED [facility] Phone: Glucose [Mass/Vol] 119 mg/dL High 70 - 99 mg/dL [facility] Phone: Interpretation and review of laboratory results Abnormal [facility] Phone: Potassium [Moles/Vol] 4.0 mmol/L 3.7 - 5.3 mmol/L [facility] Phone: Sodium [Moles/Vol] 143 mmol/L 135 - 144 mmol/L [employer] Work Phone: Urea nitrogen (BldV) [Mass/Vol] 18 mg/dL 8 - 23 mg/dL [employer] Work Phone: Urea nitrogen/Creatinine (Bld) [Mass ratio] NOT REPORTED [employer] Work Phone: [employer] Work Phone: CBC auto differentialOrdered By: Latonia Burks on 05-12-2021 Absolute Eos # 0.26 [facility] Work Phone: Absolute Immature Granulocyte 0.04 [employer] Work Phone: Absolute Lymph # 3.26 [facility] Work Phone: Absolute [place] # 0.84 [facility] Work Phone: Basophils (Bld) [#/Vol] 0.05 10*3/uL [employer] Work Phone: Basophils/100 WBC (Bld) 1 % 0 - 2 % [facility] Phone: Differential Type NOT REPORTED [facility] Phone: Eosinophils/100 WBC (Bld) 3 % 1 - 4 % [employer] Work Phone: Hematocrit (Bld) [Volume fraction] 36.9 % 36.3 - 47.1 % [facility] Phone: Hemoglobin.gastrointes tinal spec 1 Ql (Stl) 11.2 g/dL Low 11.9 - 15.1 g/dL [facility] Phone: Immature granulocytes/100 WBC (Bld) 0 % 0 [employer] Work Phone: Interpretation and review of laboratory results Abnormal [facility] Phone: Lymphocytes/100 WBC (Bld) 32 % 24 - 43 % [facility] Phone: MCH (RBC) [Entitic mass] 28.3 pg 25.2 - 33.5 pg [facility] Phone: MCHC (RBC) [Mass/Vol] 30.4 g/dL 28.4 - 34.8 g/dL [facility] Phone: MCV (RBC) [Entitic vol] 93.2 fL 82.6 - 102.9 fL [facility] Phone: Monocytes/100 WBC (Bld) 8 % 3 - 12 % [facility] Phone: NRBC Automated 0.0 0.0 per 100 WBC [facility] Phone: Platelet distribution width (Bld) [Ratio] 13.8 % 11.8 - 14.4 % [facility] Phone: Platelet Estimate NOT REPORTED [facility] Phone: Platelet mean volume (Bld) [Entitic vol] 9.5 fL 8.1 - 13.5 fL [facility] Phone: Platelets (Bld) [#/Vol] 310 10*3/uL [facility] Phone: RBC (Bld) [#/Vol] 3.96 10*6/uL 3.95 - 5.1 1 m/uL [facility] Phone: RBC (Bld) [#/Vol] NOT REPORTED [facility] Phone: Segmented neutrophils/100 WBC (Bld) 56 % 36 - 65 % [facility] Phone: Segs Absolute 5.70 [employer] Work Phone: WBC (Bld) [#/Vol] 10.2 10*3/uL [facility] Phone: WBC (Bld) [#/Vol] NOT REPORTED [facility] Phone: [facility] Phone: XR CHEST (2 VW)Ordered By: Joanie Burks on 05-12-2021 Senescent changes compatible with the age of the patient. No evidence of acute cardiopulmonary process. [facility] Phone: EXAMINATION: TWO XRA Y VIEWS OF [...] spine and visualized portions of the shoulders. [facility] Phone: Virgilio, Mhpn Incoming Radiant Results From [facility] - 05/12/2021 2:48 PM EDT EXAMINATION: TWO [...] patient. No evidence of acute cardiopulmonary process. [facility] Phone: [facility] Phone: Cardiovascular Lab Reporton 08-21-2020 Cardiovascular Lab Report [facility] Patient Name: Lenin Mcleodie [facility] Berna MR #: [id number] Department of Physician: Jose Maria Keyes M.D. Division of Service Date: 08/20/2020 Cardiology Birthdate: 1940 Adult Cardiovascular Room #: [address] [place], [place] [address] Cardiovascular Laboratory Report INDICATION: The patient is [...] signed informed consent. She was brought to crime laboratory analyst in a fasting state. The procedure was performed under conscious sedation. A transesophageal echocardiogram was performed by Dr. Marisol Khoury at baseline. Please refer to his dictation for details. The appendage measured a maximum of 16 mm in terms of ostial width. Using ultrasound guidance and micropuncture technique, access was obtained in the right common femoral vein and a 6-Barbadian x 11 cm sheath was placed preclosure where the 6-Barbadian ProGlide device was performed followed by advancement [...] was exchanged over that wire to the 14-Barbadian Watchman access sheath, which was advanced to the left atrial cavity with no issues. The 6-Barbadian angled pigtail catheter was advanced over the [...] Trans: (more content not included)... Normal The [facility] TYPE AND CROSSMATCHon 2019 ABO INTERPRETATION A [facility] Comment on above: Performed By: #### [id number] #### [facility] [address] [place] [address], [facility] RH INTERPRETATION Positive Normal The [facility] Comment on above: Performed By: #### [id number] #### [facility] [address] [place] [address], [facility] Vital Signs Date Time Vital Sign Value Performing Clinician Facility 08-29-2024 10:01-0500 Body height 152.4 cm Peyman Brown DPM Work Phone: [facility] 08-29-2024 10:01-0500 Body mass index (BMI) [Ratio] 28.32 kg/m2 Peyman Brown DPM Work Phone: [facility] 08-29-2024 10:01-0500 Body weight 65.77 kg Peyman Brown DPM Work Phone: [facility] 08-29-2024 10:01-0500 Respiratory rate 16 /min Peyman Brown DPM Work Phone: [facility] 06-20-2024 10:140400 Body height 152.4 cm Peyman Brown DPM Work Phone: [facility] 06-20-2024 10:14-0400 Body mass index (BMI) [Ratio] 28.32 kg/m2 Peyman Brown DPM Work Phone: [facility] 06-20-2024 10:14-0400 Body weight 65.77 kg Peyman Brown DPM Work Phone: [facility] 06-20-2024 10:14-0400 Respiratory rate 18 /min Peyman Brown DPM Work Phone: [facility] 05-01-2024 10:180400 Body height 149.86 cm MD Mateus Perry Work Phone: [facility] 05-01-2024 10:18-0400 Body mass index (BMI) [Ratio] 30.2 kg/m2 MD Mateus Perry Work Phone: [facility] 05-01-2024 10:180400 Body temperature 97.8 [degF] MD Mateus Perry Work Phone: [facility] 05-01-2024 10:180400 Body weight 68.03 kg MD Mateus Perry Work Phone: [facility] 05-01-2024 10:18-0400 Diastolic blood pressure 72 mm[Hg] MD Mateus Perry Work Phone: [facility] 05-01-2024 10:18-0400 Heart rate 80 /min MD Mateus Perry Work Phone: [facility] 05-01-2024 10:18-0400 Respiratory rate 16 /min MD Mateus Perry Work Phone: [facility] 05-01-2024 10:18-0400 SaO2% (BldA) [Mass fraction] 98 % MD Mateus Perry Work Phone: [facility] 05-01-2024 10:18-0400 Systolic blood pressure 118 mm[Hg] MD Mateus Perry Work Phone: [facility] 04-24-2024 11:13-0400 Body height 149.86 cm MD Mateus Perry Work Phone: [facility] 04-24-2024 11:130400 Body mass index (BMI) [Ratio] 36.3 kg/m2 MD Mateus Perry Work Phone: [facility] 04-24-2024 11:13-0400 Body weight 81.64 kg MD Mateus Perry Work Phone: [facility] 04-24-2024 11:06-0400 Body temperature 98.8 [degF] MD Mateus Perry Work Phone: [facility] 04-24-2024 11:06-0400 Diastolic blood pressure 75 mm[Hg] MD Mateus Perry Work Phone: [facility] 04-24-2024 11:06-0400 Heart rate 97 /min MD Mateus Perry Work Phone: [facility] 04-24-2024 11:06-0400 Respiratory rate 20 /min MD Mateus Perry Work Phone: [facility] 04-24-2024 11:06-0400 Systolic blood pressure 118 mm[Hg] MD Mateus Perry Work Phone: [facility] 04-10-2024 10:30-0400 Body height 149.86 cm MD Mateus Perry Work Phone: [facility] 04-10-2024 10:30-0400 Body mass index (BMI) [Ratio] 36.3 kg/m2 MD Mateus Perry Work Phone: [facility] 04-10-2024 10:30-0400 Body weight 81.64 kg MD Mateus Perry Work Phone: [facility] 03-26-2024 09:51-0400 Body height 149.86 cm MD Mateus Perry Work Phone: [facility] 03-26-2024 09:51-0400 Body mass index (BMI) [Ratio] 36.3 kg/m2 MD Mateus Perry Work Phone: [facility] 03-26-2024 09:51-0400 Body weight 81.64 kg MD Mateus Perry Work Phone: [facility] 03-26-2024 09:36-0400 Body temperature 97.3 [degF] MD Mateus Perry Work Phone: [facility] 03-26-2024 09:36-0400 Diastolic blood pressure 61 mm[Hg] MD Mateus Perry Work Phone: [facility] 03-26-2024 09:36-0400 Heart rate 86 /min MD Mateus Perry Work Phone: [facility] 03-26-2024 09:36-0400 Respiratory rate 18 /min MD Mateus Perry Work Phone: [facility] 03-26-2024 09:36-0400 Systolic blood pressure 128 mm[Hg] MD Mateus Perry Work Phone: [facility] 06-20-2023 15:29-0400 Body height 154.9 cm Winnie Ramirez PA-C Work Phone: [facility] 06-20-2023 15:29-0400 Body temperature 97.39 [degF] Winnie Ramirez PA-C Work Phone: [facility] 06-20-2023 15:29-0400 Body weight 84.64 kg Winnie Ramirez PA-C Work Phone: [facility] 06-20-2023 15:29-0400 Diastolic blood pressure 55 mm[Hg] Winnie Ramirez PA-C Work Phone: [facility] 06-20-2023 15:29-0400 Heart rate 72 /min Winnie Ramirez PA-C Work Phone: [facility] 06-20-2023 15:29-0400 Respiratory rate 16 /min Winnie Ramirez PA-C Work Phone: [facility] 06-20-2023 15:29-0400 SaO2% (BldA) [Mass fraction] 96 % Winnie Ramirez PA-C Work Phone: [facility] 06-20-2023 15:29-0400 Systolic blood pressure 138 mm[Hg] Winnie Ramirez PA-C Work Phone: [facility] 06-01-2023 08:45-0400 Body height 154.94 cm Christiano Gonzales Other [employer] Other 06-01-2023 08:45-0400 Body mass index (BMI) [Ratio] 34.57 kg/m2 Christiano Janet Other [employer] Other 06-01-2023 08:45-0400 Body temperature 97.8 [degF] Christiano Janet Other [employer] Other 06-01-2023 08:45-0400 Body weight 83.01 kg Christiano Janet Other [employer] Other 06-01-2023 08:45-0400 Diastolic blood pressure 72 mm[Hg] Christiano Gonzales Other [employer] Other 06-01-2023 08:45-0400 SaO2% (BldA) [Mass fraction] 93 % Christiano Janet Other [employer] Other 06-01-2023 08:45-0400 Systolic blood pressure 130 mm[Hg] Christiano Gonzales Other [employer] Other 03-09-2023 08:45-0400 Body height 154.94 cm Millie Storm Other [employer] Other 03-09-2023 08:45-0400 Body mass index (BMI) [Ratio] 34.57 kg/m2 Millie Storm Other [employer] Other 03-09-2023 08:45-0400 Body temperature 96.8 [degF] Millie Storm Other [employer] Other 03-09-2023 08:45-0400 Body weight 83.01 kg Millie Storm Other [employer] Other 03-09-2023 08:45-0400 Diastolic blood pressure 56 mm[Hg] Millie Storm Other [employer] Other 03-09-2023 08:45-0400 SaO2% (BldA) [Mass fraction] 97 % Millie Storm Other [employer] Other 03-09-2023 08:45-0400 Systolic blood pressure 118 mm[Hg] Millie Storm Other [employer] Other 02-14-2023 10:19-0400 Body height 154.9 cm Wallace Stone MD Work Phone: [facility] 02-14-2023 10:19-0400 Body temperature 97.39 [degF] Wallace Stone MD Work Phone: [facility] 02-14-2023 10:19-0400 Body weight 84.46 kg Wallace Stone MD Work Phone: [facility] 02-14-2023 10:19-0400 Diastolic blood pressure 90 mm[Hg] Wallace Stone MD Work Phone: [facility] 02-14-2023 10:19-0400 Heart rate 102 /min Wallace Stone MD Work Phone: [facility] 02-14-2023 10:19-0400 Respiratory rate 16 /min Wallace Stone MD Work Phone: [facility] 02-14-2023 10:19-0400 SaO2% (BldA) [Mass fraction] 95 % Wallace Stone MD Work Phone: [facility] 02-14-2023 10:19-0400 Systolic blood pressure 151 mm[Hg] Wallace Stone MD Work Phone: [facility] 12-07-2022 14:00-0400 Body height 154.94 cm Millie Storm Other [employer] Other 12-07-2022 14:00-0400 Body mass index (BMI) [Ratio] 35.71 kg/m2 Millie Storm Other [employer] Other 12-07-2022 14:00-0400 Body temperature 97.6 [degF] Millie Storm Other [employer] Other 12-07-2022 14:00-0400 Body weight 85.73 kg Millie Storm Other [employer] Other 12-07-2022 14:00-0400 Diastolic blood pressure 68 mm[Hg] Millie Storm Other [employer] Other 12-07-2022 14:00-0400 SaO2% (BldA) [Mass fraction] 93 % Millie Storm Other [employer] Other 12-07-2022 14:00-0400 Systolic blood pressure 116 mm[Hg] Millie Storm Other [employer] Other 11-29-2022 11:53-0400 Diastolic blood pressure 54 mm[Hg] MD Mateus Perry Work Phone: [facility] 11-29-2022 11:53-0400 Heart rate 67 /min MD Mateus Perry Work Phone: [facility] 11-29-2022 11:53-0400 Respiratory rate 16 /min MD Mateus Perry Work Phone: [facility] 11-29-2022 11:53-0400 SaO2% (BldA) [Mass fraction] 94 % MD Mateus Perry Work Phone: [facility] 11-29-2022 11:53-0400 Systolic blood pressure 141 mm[Hg] MD Mateus Perry Work Phone: [facility] 11-29-2022 09:13-0400 Body height 154.94 cm MD Mateus Perry Work Phone: [facility] 11-29-2022 09:13-0400 Body weight 81.64 kg MD Mateus Perry Work Phone: [facility] 11-23-2022 11:00-0400 Body height 154.94 cm Christiano Gonzales Other [employer] [facility] [employer] Other 11-23-2022 11:00-0400 Body temperature 97.8 [degF] Christiano Gonzales Other [employer] Other 11-23-2022 11:00-0400 Diastolic blood pressure 62 mm[Hg] Christiano Gonzales Other [employer] Other 11-23-2022 11:00-0400 SaO2% (BldA) [Mass fraction] 96 % Christiano Gonzales Other [employer] Other 11-23-2022 11:00-0400 Systolic blood pressure 110 mm[Hg] Christiano Gonzales Other [employer] Other 11-09-2022 13:44-0500 Body height 154.9 cm Wallace Stone MD Work Phone: [facility] 11-09-2022 13:44-0500 Body temperature 97.11 [degF] Wallace Stone MD Work Phone: [facility] 11-09-2022 13:44-0500 Body weight 84.73 kg Wallace Stone MD Work Phone: [facility] 11-09-2022 13:44-0500 Diastolic blood pressure 72 mm[Hg] Wallace Stone MD Work Phone: [facility] 11-09-2022 13:44-0500 Heart rate 66 /min Wallace Stone MD Work Phone: [facility] 11-09-2022 13:44-0500 Respiratory rate 18 /min Wallace Stone MD Work Phone: [facility] 11-09-2022 13:44-0500 SaO2% (BldA) [Mass fraction] 100 % Wallace Stone MD Work Phone: [facility] 11-09-2022 13:44-0500 Systolic blood pressure 142 mm[Hg] Wallace Stone MD Work Phone: [facility] 09-22-2022 11:24-0500 Body height 154.9 cm Wallace Stone MD Work Phone: [facility] 09-22-2022 11:24-0500 Body temperature 97.81 [degF] Wallace Stone MD Work Phone: [facility] 09-22-2022 11:24-0500 Body weight 84.82 kg Wallace Stone MD Work Phone: [facility] 09-22-2022 11:24-0500 Diastolic blood pressure 64 mm[Hg] Wallace Stone MD Work Phone: [facility] 09-22-2022 11:24-0500 Heart rate 70 /min Wallace Stone MD Work Phone: [facility] 09-22-2022 11:24-0500 Respiratory rate 16 /min Wallace Stone MD Work Phone: [facility] 09-22-2022 11:24-0500 SaO2% (BldA) [Mass fraction] 94 % Wallace Stone MD Work Phone: [facility] 09-22-2022 11:24-0500 Systolic blood pressure 137 mm[Hg] Wallace Stone MD Work Phone: [facility] 09-09-2022 15:06-0500 Blood Pressure Location Iliana DORANL [facility] [place] 09-09-2022 15:06-0500 Diastolic blood pressure 68 mm[Hg] Iliana NILL [facility] 09-09-2022 15:06-0500 Heart rate 68 /min Iliana NILL [facility] 09-09-2022 15:06-0500 Respiratory rate 16 /min Iliana DORANL [facility] 09-09-2022 15:06-0500 Systolic blood pressure 130 mm[Hg] Iliana NILL [facility] 06-28-2022 12:00-0400 SaO2% (BldA) [Mass fraction] 95 % Emma Plunkett MD Work Phone: [facility] 06-28-2022 11:50-0400 Body temperature 97.3 [degF] Emma Plunkett MD Work Phone: [facility] 06-28-2022 11:50-0400 Diastolic blood pressure 50 mm[Hg] Emma Plunkett MD Work Phone: [facility] 06-28-2022 11:50-0400 Heart rate 69 /min Emma Plunkett MD Work Phone: [facility] 06-28-2022 11:50-0400 Respiratory rate 16 /min Emma Plunkett MD Work Phone: [facility] 06-28-2022 11:50-0400 Systolic blood pressure 115 mm[Hg] Emma Plunkett MD Work Phone: [facility] 06-28-2022 07:36-0400 Body height 154.9 cm Emma Plunkett MD Work Phone: [facility] 06-28-2022 07:36-0400 Body mass index (BMI) [Ratio] 34.58 kg/m2 Emma Plunkett MD Work Phone: [facility] 06-28-2022 07:36-0400 Body weight 83.01 kg Emma Plunkett MD Work Phone: [facility] 12-13-2021 15:45-0400 Body temperature 97 [degF] Emma Plunkett MD Work Phone: [facility] [email or web address] 12-13-2021 15:45-0400 Diastolic blood pressure 96 mm[Hg] Emma Plunkett MD Work Phone: [facility] [email or web address] 12-13-2021 15:45-0400 Heart rate 65 /min Emma Plunkett MD Work Phone: [facility] 12-13-2021 15:45-0400 Respiratory rate 14 /min Emma Plunkett MD Work Phone: [facility] [email or web address] 12-13-2021 15:45-0400 SaO2% (BldA) [Mass fraction] 94 % Emma Plunkett MD Work Phone: [facility] [email or web address] 12-13-2021 15:45-0400 Systolic blood pressure 113 mm[Hg] Emma Plunkett MD Work Phone: [facility] [email or web address] 12-13-2021 09:46-0400 Body height 154.9 cm Emma Plunkett MD Work Phone: [facility] [email or web address] 12-13-2021 09:46-0400 Body mass index (BMI) [Ratio] 36.09 kg/m2 Emma Plunkett MD Work Phone: [facility] 12-13-2021 09:46-0400 Body weight 86.64 kg Emma Plunkett MD Work Phone: [facility] 12-06-2021 14:46-0400 Body height 154.[address] 12-06-2021 14:46-0400 Body mass index (BMI) [Ratio] 36.09 kg/m2 [address] 12-06-2021 14:46-0400 Body temperature 96.4 [degF] [address] 12-06-2021 14:46-0400 Body weight 86.[address] 12-06-2021 14:46-0400 Diastolic blood pressure 67 mm[Hg] [address] 12-06-2021 14:46-0400 Heart rate 62 /min [address] 12-06-2021 14:46-0400 Respiratory rate 20 /min [address] 12-06-2021 14:46-0400 SaO2% (BldA) [Mass fraction] 97 % [address] 12-06-2021 14:46-0400 Systolic blood pressure 153 mm[Hg] [address] 06-15-2021 10:14-0400 Body temperature 97.81 [degF] Kin Abarca MD Work Phone: [facility] [email or web address] Work Phone: 06-15-2021 10:14-0400 Diastolic blood pressure 58 mm[Hg] Kin Abarca MD Work Phone: [facility] [email or web address] Work Phone: 06-15-2021 10:14-0400 Heart rate 61 /min Kin Abarca MD Work Phone: [email or web address] Work Phone: 06-15-2021 10:14-0400 Respiratory rate 14 /min Kin Abarca MD Work Phone: [employer] Work Phone: 06-15-2021 10:14-0400 SaO2% (BldA) [Mass fraction] 96 % Kin Abarca MD Work Phone: [employer] Work Phone: 06-15-2021 10:14-0400 Systolic blood pressure 113 mm[Hg] Kin Abarca MD Work Phone: [employer] Work Phone: 06-15-2021 08:24-0400 Body height 154.9 cm Kin Abarca MD Work Phone: [employer] Work Phone: 06-15-2021 08:24-0400 Body mass index (BMI) [Ratio] 34.96 kg/m2 Kin Abarca MD Work Phone: [employer] Work Phone: 06-15-2021 08:24-0400 Body weight 83.92 kg Kin Abarca MD Work Phone: [facility] Phone: 05-12-2021 12:53-0400 Body height 154.9 cm Stv[facility] 1 [facility] Phone: 05-12-2021 12:53-0400 Body mass index (BMI) [Ratio] 35.52 kg/m2 [facility] 1 [employer] Work Phone: 05-12-2021 12:53-0400 Body temperature 96.8 [degF] [facility]vz 1 [facility] Phone: 05-12-2021 12:53-0400 Body weight 85.28 kg Stvz 1 [facility] Phone: 05-12-2021 12:53-0400 Diastolic blood pressure 66 mm[Hg] Stvz 1 [employer] Work Phone: 05-12-2021 12:53-0400 Heart rate 57 /min Stvz 1 [facility] Phone: 05-12-2021 12:53-0400 Respiratory rate 18 /min Stvz 1 [employer] Work Phone: 05-12-2021 12:53-0400 SaO2% (BldA) [Mass fraction] 96 % Stvz 1 [employer] Work Phone: 05-12-2021 12:53-0400 Systolic blood pressure 150 mm[Hg] Stvz 1 [employer] Work Phone: Encounters Encounter Date Encounter Type Care Provider Facility Start: 09-02-2024 ambulatory [facility] Start: 08-29-2024 End: 08-29-2024 Transceptaheet Peyman Hensley DPM Work Phone: [facility] Start: 08-29-2024 End: 08-29-2024 Transceptaheet Peyman Hensley DPM Work Phone: [facility] Start: 08-29-2024 Encounter for preprocedural cardiovascular examination [facility] Start: 08-29-2024 End: 08-29-2024 Office outpatient visit 15 minutes Peyman Hensley DPM Work Phone: [facility] Comment on above: 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 (CMS/HCC) (Primary Dx); Diabetes mellitus due to underlying condition with diabetic polyneuropathy, 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 (CMS/HCC); Pain due to onychomycosis of toenails of both feet; Venous insufficiency; Neoplasm of uncertain behavior of skin Start: 08-29-2024 End: 08-29-2024 ambulatory PEYMAN HENSLEY Not Available Start: 08-27-2024 End: 08-27-2024 ambulatory [facility] Start: 08-12-2024 ambulatory [facility] Start: 08-12-2024 End: 08-12-2024 ambulatory [facility] Start: 07-17-2024 End: 07-17-2024 [facility] Start: 07-10-2024 ambulatory [facility] Start: 07-10-2024 End: 07-10-2024 ambulatory [facility] Start: 07-02-2024 End: 07-02-2024 ambulatory [facility] Start: 06-20-2024 End: 06-20-2024 Bamboo flowsheet Peyman [...] both feet Start: 06-12-2024 End: 06-12-2024 ambulatory [facility] Start: 05-27-2024 End: 05-27-2024 ambulatory CHERYL FARIA [facility] Start: 05-01-2024 End: 05-01-2024 ambulatory MD Mateus Perry Work Phone: [facility] Work Phone: Start: 05-01-2024 End: 05-01-2024 Patient encounter procedure MD Mateus Perry Work Phone: [facility] Vascular Surgery Work Phone: Start: 04-24-2024 End: 04-24-2024 ambulatory MD Mateus Perry Work Phone: [facility] Work Phone: Start: 04-24-2024 End: 04-24-2024 Discharged Recurring MD Mateus Perry Work Phone: [facility] [place] Work Phone: Start: 04-09-2024 End: 04-09-2024 Patient encounter procedure MD Mateus Perry Work Phone: [facility]-Ultrasound Main [place] Work Phone: Start: 04-09-2024 End: 04-09-2024 ambulatory MD Mateus Perry Work Phone: [facility] Work Phone: Start: 03-26-2024 Registered Recurring MD Yvonne Perry Work Phone: [facility] [place] Work Phone: Start: 06-20-2023 End: 06-20-2023 ambulatory WINNIE GUZMÁN Facility:[facility] Start: 06-20-2023 End: 06-20-2023 ambulatory Winnie Guzmán PA-C Work Phone: Hematology/Oncology Comment on above: 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, estrogen receptor positive (HCC) (Primary Dx); Stage 3a chronic kidney disease (HCC) Start: 06-20-2023 End: 06-20-2023 Patient encounter procedure Winnie Guzmán PA-C Work Phone: [facility] Start: 06-01-2023 End: 06-01-2023 ambulatory Christiano Gonzales Other [employer] Other Start: 06-01-2023 Office outpatient vi sit 15 minutes Christiano Gonzales [facility] Vascular Surgery Start: 04-06-2023 End: 04-07-2023 ambulatory MATEUS PERRY [facility] Start: 03-09-2023 End: 03-09-2023 ambulatory Millie Storm Other [employer] Other Start: 03-09-2023 Patient encounter procedure Millie Emeterio [facility] Vascular Surgery Start: 03-06-2023 End: 03-06-2023 ambulatory EMMA GARZA V [facility] Start: 02-14-2023 End: 02-14-2023 ambulatory WALLACE STONE Facility:[facility] Start: 02-14-2023 End: 02-14-2023 ambulatory Wallace Stone MD Work Phone: Hematology/Oncology Comment on above: 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, estrogen receptor positive (HCC) (Primary Dx); Rash; Other eczema; Stage 3a chronic kidney disease (HCC) Start: 02-14-2023 End: 02-14-2023 Patient encounter procedure Wallace Stone MD Work Phone: [facility] Start: 01-19-2023 End: 01-19-[address] MATEUS PERRY . Facility: Start: 12-08-2022 End: 12-08-2022 ambulatory Millie Storm Other [employer] Other Start: 12-08-2022 Telephone encounter Millie Storm [facility] Start: 12-07-2022 End: 12-07-2022 ambulatory Millie Storm Other [employer] Other Start: 12-07-2022 Patient encounter procedure Millie Emeterio [facility] Vascular Surgery Start: 11-29-2022 End: 11-29-2022 Admission to same day surgery center MD aMteus Perry Work Phone: [facility]-Interventional Radiology Work Phone: Start: 11-29-2022 End: 11-29-2022 ambulatory MD Mateus Perry Work Phone: [facility] Work Phone: Start: 11-24-2022 End: 11-25-2022 ambulatory LATONIA BRUSH [facility] Start: 11-24-2022 End: 11-24-2022 Subsequent hospital visit by physician Mateus Perry MD Work Phone: [facility] Start: 11-23-2022 End: 11-23-2022 ambulatory Christiano Gonzales Other [employer] Other Start: 11-23-2022 Office outpatient ne w 60 minutes Christiano Gonzales [facility] Vascular Surgery Start: 11-22-2022 End: [...] encounter procedure Wallace Stone MD Work Phone: [facility] Start: 11-09-2022 Telephone encounter Wallace carolina MD [facility] Phone[facility] Comment on above: Referral Information (Vascular Consult) Start: 11-08-2022 End: 11-09-2022 ambulatory Iliana R NILL Facility: [facility] Start: 11-08-2022 End: 11-08-2022 Patient encounter procedure Iliana R NILL General Surgery [facility] Start: 11-04-2022 End: 11-05-2022 ambulatory Iliana R NILL Facility:[facility] [place] Start: 11-04-2022 End: 11-04-2022 Patient encounter procedure Iliana GAGNON General Surgery [facility] [place] Start: 11-02-2022 End: 11-03-[address] MATEUS PERRY . Facility: Start: 10-25-2022 End: 10-26-2022 ambulatory Iliana GAGNON Facility:[facility] Start: 10-25-2022 End: 10-25-2022 Patient encounter procedure Iliana GAGNON General Surgery [facility] [place] Start: 10-19-2022 End: 10-20-[address] ILIANA GAGNON . Facility: Start: 10-15-[address] ILIANA GAGNON . Facil ity:[facility] Start: 10-12-2022 Encounter for preprocedural laboratory examination DR ILIANA GAGNON . [facility] Start: 10-11-2022 End: 10-12-[address] ILIANA GAGNON . Facility: Start: 10-11-2022 End: 10-12-2022 Encounter for preprocedural laboratory examination DR ILIANA GAGNON . Facility: Start: 09-30-2022 End: 10-01-[address] MATEUS PERRY . Facility: Start: 09-22-2022 Telephone encounter Lars Wilkerson RN Work Phone: Hematology/Oncology Comment on above: Care Coordination (S urgery update) Start: 09-22-2022 End: 09-22-2022 ambulatory WALLACE STONE Facility:[facility] Start: 09-22-2022 End: 09-22-2022 ambulatory Wallace [...] 09-09-2022 End: 09-10-2022 ambulatory Iliana GAGNON Facility: [place] Start: 09-09-2022 End: 09-09-2022 Patient encounter procedure [...] by physician Emma Garza MD Work Phone: [facility] Comment on above: Vaginal [...] HANK Facility:[facility] Start: 02-15-2022 End: 02-16-2022 ambulatory [facility] Facility:[facility] Start: 02-09-2022 End: 02-10-2022 ambulatory [facility] Facility:[facility] Start: 12-13-2021 End: 12-13-2021 Subsequent hospital visit by physician Emma Garza MD Work Phone: [facility] Comment on above: Post-operative state (Primary Dx) Start: 12-06-2021 End: 12-08-2021 Subsequent hospital visit by physician [facility] Radiology Comment on above: Arrived Start: [...] hospital visit by physician Stv [facility] Radiology Comment on above: Arrived Start: [...] W/ REFLEX TO MG FOR LOW K Laotnia Kimmie PA-C Work Phone: Start: 05-12-2021 Blood count complete auto&auto difrntl wbc Latonia Kimmie PA-C Work Phone: Start: 05-12-2021 Radiologic exam ches t 2 views Latonia Kimmie PA-C Work Phone: Start: 05-12-2021 Ecg routine ecg w/le ast 12 lds i&r only Latonia Kimmie PA-C Work Phone: Start: 08-20-2020 Antibody screen Comment on above: Performed By: #### [id number] #### [facility] [place] [address], [facility] Start: 01-16-2017 History of [...] EST Office Visit [facility] [address] [facility] [address] [place] [address] Peyman Hensley DPM [address] [facility] [address] [place] [address] [facility] Start: 08-29-2024 End: 08-29-2024 Patient encounter procedure [facility] Comment on above: 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 (CMS/HCC) (Primary Dx); Diabetes mellitus due to underlying condition with diabetic polyneuropathy, 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 (CMS/HCC); Pain due to onychomycosis of toenails of both feet; Venous insufficiency Start: 06-20-2024 Hemoglobin/Hematocrit Hemoglobin/Hem atocrit [facility] Start: 06-20-2024 Serum Creatinine Serum Creatinine [facility] Start: 05-12-2024 Influenza vaccination Influenza Vacc ine (#1) [facility] Start: 02-15-2024 HEMOGLOBIN/HEMATOCRIT HEMOGLOBIN/HEM ATOCRIT [facility] Start: 02-15-2024 SERUM CREATININE SERUM CREATININE [facility] Start: 06-16-2023 End: 08-16-2023 CBC W Auto Differential panel - Blood CBC + DIFF Lab Routine 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, estrogen receptor positive (HCC) Expected: 06/16/2023 (Approximate), Expires: 08/16/2023 [facility] Work Phone: Comment on above: Expected: 06/16/2023 (Approximate), Expires: 08/16/2023 Start: 06-16-2023 End: 08-16-2023 Comprehensive metabolic 2000 panel - Serum or Plasma COMP METABOLIC PANEL Lab Routine 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, estrogen receptor positive (HCC) Expected: 06/16/2023 (Approximate), Expires: 08/16/2023 [facility] Work Phone: Comment on above: Expected: 06/16/2023 (Approximate), Expires: 08/16/2023 Start: 05-12-2023 Covid-19 Vaccine ( season) Covid-19 Vaccine ( season) [facility] Start: 05-12-2023 Influenza vaccination C [facility] Start: 04-12-2023 End: 04-12-2023 Patient encounter procedure 04/12/2023 Office Visit Gynecologic Oncology Latonia Brush PA-C [address] [address] [facility]nec[facility]cology Services Start: 02-09-2023 End: 04-11-2023 CBC W Auto Differential panel - Blood CBC + DIFF Lab Routine 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, estrogen receptor positive (HCC) Expected: 02/09/2023 (Approximate), Expires: 04/11/2023 [facility] Work Phone: Comment on above: Expected: 02/09/2023 (Approximate), Expires: 04/11/2023 Start: 02-09-2023 End: 04-11-2023 Comprehensive metabolic 2000 panel - Serum or Plasma COMP METABOLIC PANEL Lab Routine 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, estrogen receptor positive (HCC) Expected: 02/09/2023 (Approximate), Expires: 04/11/2023 [facility] Work Phone: Comment on above: Expected: 02/09/2023 (Approximate), Expires: 04/11/2023 Start: 12-13-2022 Potassium monitoring Potassium monit [facility] [email or web address] Start: 12-06-2022 Creatinine measurement Creatinine mo [facility] Start: 12-06-2022 Potassium monitoring Potassium monit [facility] [employer] Start: 11-29-2022 End: 11-29-2022 [facility] Start: 09-11-2022 ADVANCE DIRECTIVE DISCUSSION ADVANCE DIRECTIVE DISCUSSION [facility] Start: 09-11-2022 DEPRESSION ASSESSMENT DEPRESSION ASS ESSMENT [facility] Start: 07-27-2022 End: 07-27-2022 Patient encounter procedure 07/27/2022 Office Visit Gynecologic Oncology Emma Garza MD [address] [facility] [address] [place] [address] [facility] Gynecologic Oncology Services Start: 06-28-2022 End: 06-28-2022 VULVA VAGINAL CERVIX LESION EXCISION LASER VULVA VAGINAL CERVIX LESION EXCISION LASER Vaginal dysplasia 06/28/2022 9:04 AM EDT [facility] Start: 06-15-2022 Creatinine measurement Creatinine mo [facility] [employer] Work Phone: Start: 06-15-2022 Potassium monitoring Potassium monit [facility] Work Phone: Start: 05-12-2022 Creatinine measurement Creatinine mo [facility] Work Phone: Start: 05-12-2022 Influenza vaccination INFLUENZA (#1) [facility] Start: 05-12-2022 Potassium monitoring Potassium monit [facility] Work Phone: Start: 04-11-2022 Influenza vaccination Flu vaccine (# 1) [facility] Start: 01-14-2022 End: 01-14-2022 Patient encounter procedure 01/14/2022 Office Visit Gynecologic Oncology Latonia Burks PA-C [address] [facility] [address] [place] [address] [facility] Gynecologic Oncology Services Start: 12-13-2021 End: 12-13-2021 VAGINECTOMY [facility] Start: 12-13-2021 End: 12-13-2021 Admission to same day surgery center [facility] Comment on above: VAGINECTOMY, CYSTOSC OPY CYSTOSCOPY, VAGINECT PATY Start: 12-13-2021 Subsequent hospital visit by physician 12/13/2021 Hospital Encounter IP Unit Emma Garza MD [address] [facility] [address] [place] [id number] [facility] Start: 12-13-2021 End: 12-13-2021 Vaginectomy complete removal vaginal wall VAGINECTOMY VAGINAL DYSPLASIA, RULE OUT CANCER 12/13/2021 10:20 AM EDT [facility] Start: 10-31-2021 Annual Wellness Visi t (AWV) Annual Wellness Visit (AWV) [facility] Start: 10-15-2021 COVID-19 VACCINE (4 - Booster for Moderna series) COVID-19 VACCINE (4 - Booster for Moderna series) [facility] Start: 07-01-2021 End: 07-01-2021 Patient encounter procedure 07/01/2021 Office Visit Gynecologic Oncology Kin Abarca MD [address] [facility] [address] [place] [id number] [facility] Gynecologic Oncology Services Start: 05-12-2021 Influenza vaccination Flu vaccine (# 1) [facility] Work Phone: Start: 04-05-2021 COVID-19 Vaccine (3 - Booster for Moderna series) COVID-19 Vaccine (3 - Booster for Moderna series) [facility] Start: 10-29-2020 Hemoglobin A1c/Hemoglobin.total in Blood HBA1C [facility] Start: 01-19-2018 Pneumococcal Vaccine : 65+ (2 - PCV) Pneumococcal Vaccine: 65+ (2 - PCV) [facility] Start: 01-19-2018 Pneumococcal Vaccine : 65+ Years (2 of 2 - PCV) Pneumococcal Vaccine: 65+ Years (2 of 2 - PCV) [facility] Start: 01-19-2018 PNEUMOCOCCAL: 65+ (2 - PCV) PNEUMOCOCCAL: 65+ (2 - PCV) [facility] Start: 2007 BONE DENSITY BONE DENSITY [facility] Start: 2007 Bone Density Screening Bone Density Screening [facility] Start: 2007 Pneumococcal 65+ yea rs Vaccine (1 - PCV) Pneumococcal 65+ years Vaccine (1 - PCV) [facility] Start: 2007 Pneumococcal 65+ yea rs Vaccine (1 of 1 - PPSV23) Pneumococcal 65+ years Vaccine (1 of 1 - PPSV23) [facility] Start: 2002 Hepatitis B Vaccine (1 of 3 - Risk 3-dose series) Hepatitis B Vaccine (1 of 3 - Risk 3-dose series) [facility] Start: 1997 Screening for osteoporosis DEXA (modify frequency per FRAX score) [facility] Start: 1992 Shingles Vaccine (1 of 2) Shingles Vaccine (1 of 2) [facility] Start: 1992 SHINGRIX VACCINE (1 of 2) SHINGRIX VACCINE (1 of 2) [facility] Start: 1961 DTaP/Tdap/Td vaccine (1 - Tdap) DTaP/Tdap/Td vaccine (1 - Tdap) [facility] Start: 1961 Urine microalbumin profile [facility] Start: 1960 ANNUAL PCP TEAM MANAGER MERCHANDISING USAMA DISEASE VISIT ANNUAL PCP TEAM CHRONIC DISEASE VISIT [facility] Start: 1960 BP CONTROLLED (<130/80) BP CON TROLLED (<130/80) [facility] Start: 1960 Hepatitis B surface antibody level LDL CHOLESTEROL [facility] Start: 1960 Hepatitis C screening Hepatitis C sc reen [facility] Start: 1954 Depression Screen Depression Screen [facility] Start: 1952 3 comp foot exam completed DIABETIC FOOT EXAM [facility] Start: 1952 Hepatitis B screening URINE ALBUMIN:CREATININE RATIO [facility] Start: 1952 Hepatitis C antibody , confirmatory test DILATED RETINAL EXAM [facility] Start: 1952 Lipid panel [facility] Start: 1942 Hepatitis C screening Hepatitis C sc reen [facility] EKG 12 Lead EKG 12 Lead ECG STAT 06/28/2022 7:29 AM EDT [employer] [facility] Work Phone: End: 12-13-2021 INITIATE PACU OXYGEN THERAPY PROTOCOL Initiate PACU Oxygen Therapy Protocol Respiratory Care Routine Continuous until discontinued starting 12/13/2021 [employer] Work Phone: Comment on above: Continuous until dis continued starting 12/13/2021 End: 06-28-2022 INITIATE PACU OXYGEN THERAPY PROTOCOL Initiate PACU Oxygen Therapy Protocol Respiratory Care Routine Continuous until discontinued starting 06/28/2022 [facility] [email or web address] Work Phone: Comment on above: Continuous until dis continued starting 06/28/2022 End: 07-19-2024 MAGNO DIAGNOSTIC BILATERAL [facility] Radiology Routine 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, estrogen receptor positive (HCC) 1 Occurrences starting 06/20/2023 until 07/19/2024 [facility] Work Phone: Comment on above: 1 Occurrences starti ng 06/20/2023 until 07/19/2024 Patient referral [facility] Work Phone: Spirometry panel Incentive viktoriya metry Respiratory Care Routine Every 2hr while awake until discontinued starting 12/13/2021 [employer] Work Phone: Comment on above: Every 2hr while awak e until discontinued starting 12/13/2021 Surgical Pathology Surgical Path ology Lab Routine Release Upon Ordering for 1 Occurrences starting 06/15/2021 [employer] Work Phone: Comment on above: Release Upon Orderin g for 1 Occurrences starting 06/15/2021 Surgical Pathology Surgical Path ology Lab Routine Release Upon Ordering for 1 Occurrences starting 12/13/2021 [facility] Phone: Comment on above: Release Upon Orderin g for 1 Occurrences starting 12/13/2021 Surgical Pathology Surgical Path ology Lab Routine Vaginal dysplasia Release Upon Ordering for 1 Occurrences starting 06/28/2022 [employer] Phone: Comment on above: Release Upon Orderin g for 1 Occurrences starting 06/28/2022 End: 06-28-2022 SURGICAL PATHOLOGY REPORT SURGICAL PATHOLOGY REPORT Lab Routine Once for 1 Occurrences starting 06/28/2022 until 06/28/2022 [employer] Phone: Comment on above: Once for 1 Occurrenc es starting 06/28/2022 until 06/28/2022 End: 11-24-2022 SURGICAL PATHOLOGY REPORT SURGICAL PATHOLOGY REPORT Lab Routine Once for 1 Occurrences starting 11/24/2022 until 11/24/2022 [employer] Phone: Comment on above: Once for 1 Occurrenc es starting 11/24/2022 until 11/24/[address] [facility] Immunizations Immunization Date Immunization Notes Care Provider [facility] 07-12-2022 influenza virus vacc ine, unspecified formulation Iliana GAGNON [facility] 08-20-2021 SARS-CoV-2 (COVID-19 ) mRNA-1273 vaccine Iliana GAGNON [facility] 07-01-2021 influenza (HD-IIV4) vaccine, age 65+ yr, high dose, quadrivalent, PF (FLUZONE HIGH-DOSE) Wallace Stone MD Work Phone: [facility] 07-01-2021 influenza virus vacc ine, unspecified formulation Winnie Guzmán PA-C Work Phone: [facility] 11-06-2020 COVID-19, Moderna, P F, 100mcg/0.5mL Stv Xr [facility] 10-09-2020 COVID-19, Moderna, P F, 100mcg/0.5mL Stv Xr [facility] Work Phone: 06-10-2020 Seasonal trivalent influenza vaccine, adjuvanted, preservative free Wallace Stone MD Work Phone: [facility] 06-07-2017 influenza, high dose seasonal, preservative-free Wallace Stone MD Work Phone: [facility] 01-19-2017 pneumococcal polysaccharide vaccine, 23 valent Wallace Stone MD Work Phone: [facility] 06-29-2015 influenza, high dose seasonal, preservative-free Wallace Stone MD Work Phone: [facility] 06-23-2014 influenza, high dose seasonal, preservative-free Wallace Stone MD Work Phone: [facility] 06-15-2010 pneumococcal polysaccharide vaccine, 23 valent Wallace Stone MD Work Phone: [facility] 06-27-2007 influenza virus vacc ine, whole virus Wallace Stone MD Work Phone: [facility] Payers Date Payer Category Payer Self-pay [id number] [address] [facility] KASSIE BAEZAHANDRE Nair [id number] 2007 Medicare [id number]. 1.13.159. 2.7.3.884361.315 2007 Unknown [id number]. 1.13.159. 2.7.3.394010.315 2007 Unknown [id number] 1.2.840.270631.1.13.239. 2.7.3.557181.315 1959 Medicare [id number] 1.2.840.386410.1.13.239. 2.7.3.924735.315 1959 Self-pay [id number] 1959 Unknown [id number] 2.16.840.1.437494.19 1942 Unknown [id number] 2.16.840.1.839229.3.579. 2.593 1942 Unknown [id number] 2.16.840.1.951366.3.579. 2.593 1942 Unknown [id number] 2.16.840.1.925937.3.579. 2.593 1942 Unknown [id number] 2.16.840.1.021854.3.579. 2.593 1942 Unknown [id number] 2.16.840.1.459348.3.579. 2.593 1942 Unknown [id number] 2.16.840.1.234238.3.579. 2.593 1942 Unknown [id number] 2.16.840.1.651929.3.579. 2.593 1942 Unknown [id number] 2.16.840.1.177985.3.579. 2.593 1942 Unknown [id number] 2.16.840.1.578162.3.579. 2.593 1942 Unknown [id number] 2.16.840.1.790482.3.579. 2.593 1942 Unknown [id number] 2.16.840.1.301505.3.579. 2.593 1942 Unknown [id number] 2.16.840.1.698449.3.579. 2.593 1942 Unknown [id number] 2.16.840.1.937373.3.579. 2.593 1942 Unknown [id number] 2.16.840.1.212443.3.579. 2.593 1942 Unknown [id number] 2.16.840.1.322220.3.579. 2.593 1942 Unknown [id number] 2.16.840.1.499454.3.579. 2.593 1942 Unknown [id number] 2.16.840.1.610961.3.579. 2.593 1942 Unknown [id number] 2.16.840.1.850319.3.579. 2.593 1942 Unknown [id number] 2.16.840.1.173708.3.579. 2.593 1942 Unknown [id number] 2.16.840.1.343529.3.579. 2.593 1942 Unknown [id number] 2.16.840.1.435771.3.579. 2.593 1942 Unknown [id number] 2.16.840.1.849178.3.579. 2.593 1942 Unknown [id number] 2.16.840.1.078549.3.579. 2.593 1942 Unknown [id number] 2.16.840.1.261611.3.579. 2.593 1942 Unknown [id number] 2.16.840.1.832543.3.579. 2.593 1942 Unknown [id number] 2.16.840.1.710579.3.579. 2.593 1942 Unknown [id number] 2.16.840.1.781162.3.579. 2.593 1942 Unknown [id number] 2.16.840.1.952954.3.579. 2.727 1942 Unknown [id number] 2.16.840.1.582582.3.579. 2.727 1942 Unknown [id number] 2.16.840.1.288778.3.579. 2.727 1942 Unknown [id number] 2.16.840.1.396945.3.579. 2.727 1942 Unknown [id number] 2.16.840.1.523642.3.579. 2.727 1942 Unknown [id number] 2.16.840.1.380201.3.579. 2.727 1942 Unknown [id number] 2.16.840.1.058279.3.579. 2.727 1942 Unknown [id number] 2.16.840.1.622339.3.579. 2.175 1942 Unknown [id number] 2.16840.1.299289.3.579. 2.175 1942 Unknown [id number] 2.16840.1.148137.3.579. 2.175 1942 Unknown [id number] 2.16.840.1.161470.3.579. 2.1259 1942 Unknown [id number] 2.16840.1.501696.3.579. 2.1259 Medicare Medicare Outpatient [id number] Unknown [id number] 2.16840.1.128983.3.579. 2.531 Unknown [id number] 2.16.840.1.441150.3.579. 2.531 Social History Date Type Detail Facility Start: 05-12-2021 End: 06-20-2024 Tobacco smoking status NHIS Former smoker [facility] Phone: Start: 09-11-1962 End: 06-28-2018 History of tobacco use Current smoker [facility] Start: 09-11-1962 End: 06-28-2018 History of tobacco use Cigarette Smoker [facility] Start: 05-12-2021 End: 06-20-2024 Tobacco use and exposure Never used [facility] Start: 05-12-2021 End: 11-24-2022 Alcohol intake Ex-drinker (finding) [facility] Phone: Start: 1940 Sex Assigned At Not on file M [employer] Phone: Start: 11-26-2021 End: 06-24-2022 Exposure to SARS-CoV-2 (event) Not sure [facility] Start: 06-15-2021 End: 06-20-2024 Cigarettes smoked current (pack per day) - Reported [facility] History of tobacco use Passive smoker [facility] [employer] Phone: Tobacco smoking status Never [facility] [place] Start: 02-14-2023 End: 06-20-2024 Sex Assigned At Female [facility] Start: 09-19-2022 End: 02-14-2023 Alcohol intake Current non-drinker of alcohol (finding) [facility] Start: 1940 Sex Assigned At Female [facility] Tobacco smoking stat [facility] Tobacco smoking consumption unknown [facility] Start: 06-20-2024 End: 08-29-2024 Alcoholic beverage intake Lifetime non-drinker (finding) [facility] Medical Equipment Procedure Code Equipment Code [...] Facility 09-09-2022 Functional Status N/A [facility] Clinical Notes 05-12-2021 to 09-02-2024 Peyman Hensley DPM - 08/29/2024 10:00 AM Darius Hensley DPM - 06/20/2024 9:40 AM EDT Note Date & Type Note Facility 09-02-2024 Note PR Electrophysiology Consult Note PR Cardiology [facility] Reason for visit: s/p CRTD [...] today shows good function. Patient underwent the CYLINDER GRINDER placement on 07/10/2024 and subsequently underwent an [...] in A-fib. She was just discharged from [facility] for GI bleed. Eliquis and aspirin have [...] fibrillation (CMS/HCC) CAD (coronary artery disease) Cancer ([facility]) CHF (congestive heart failure) ([facility]CC) Chronic kidney disease COPD (chronic obstructive pulmonary disease) (CMS/HCC) Diabetes mellitus (CMS/HCC) GI bleed Heart murmur Hyperlipidemia Hypertension PVD (peripheral vascular disease) ([facility]/HCC) PSH: Past Surgical History: Procedure Laterality Date [...] fish oil concen (more content not included)... [facility] 08-29-2024 History of Present illness Narrative Patient: Harman Mcelod : 1940 PCP: Mateus Perry MD SUBJECTIVE [...] 4 months after hitting object. Currently sees atrium [...] Partner Violence: Unknown (11/02/2023) [facility] [place] [facility] Fear of Current [...] and negative PT pedal pulses NEURO: 5.07 [place] Sybil monofilament test intact to digits and forefoot bilaterally 125Hz tuning fork diminished to 1st MPJ bilaterally ORTHO: Positive pain on palpation to nails 1 through 10 Positive pain palpation left anterior braun ASSESSMENT 1. 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 Pain due to [...] DSD applied . Patient currently has the [facility] wound center applying Medihoney every other day. Did discuss possibility if no improvement to contact Podiatry for advanced wound care treatments or if any signs of infection Peyman Hensley DPM documented in this encounter [facility] 08-27-2024 Note PR Electrophysiology Consult Note PR Cardiology - [facility] Reason for visit: s/p CRTD [...] today shows good function. Patient underwent the CYLINDER GRINDER placement on 07/10/2024 and subsequently underwent an [...] in A-fib. She was just discharged from [facility] for GI bleed. Eliquis and aspirin have [...] kidney disease COPD (chronic obstructive pulmonary disease) ([facility]/HCC) Diabetes mellitus ([facility]) GI bleed Heart murmur Hyperlipidemia Hypertension PVD (peripheral vascular disease) ([facility]) PSH: Past Surgical History: Procedure Laterality Date CARDIAC CATHETERIZATION 12/15/2011, 08/23/2010, 12/30/2004, CORONARY STENT PLACEMENT HYSTERECTOMY 03/11/2005 VASCULAR SURGERY SH: Social Determinants of Health Tobacco Use: Medium Risk (06/20/2024) [facility] Patient History Smoking Tobacco Use: Former Smokeless Tobacco Use: Never Passive Exposure: Not on file Alcohol Use: Not on file Financial Resource Strain: Not on file Food Insecurity: Not on file Transportation Needs: Not on file Physical Activity: Not on file Stress: Not on file Social Connections: Not on file Intimate Partner Violence: Unknown (11/02/2023) [place] [facility] Fear of Current or Ex-Partner: Not on file Emotionally Abused: Not on file Physically Abused: Not on file Sexually Abused: Not on file Physically or Sexually Abused: Not on file Depression: Not at risk (02/14/2023) Re[facility] PHQ-2 PHQ-2 score: 0 Housing Stability: [...] mouth two times daily. fish oil concentrate ([place]-3) 120-180 mg capsule Take 1,000 mg by [...] insulin glargine (L (more content not included)... [facility] 08-12-2024 Note AV NODE ABLATION PRO CEDURE REPORT DATE OF PROCEDURE: 08/12/2024 PERFORMING PHYSICIAN: Dr. Brian Potter QUALITY CONTROL LAB TECH: SAVAGE CONSENT: Patient NAME OF THE PROCEDURE: [...] in A-fib. She was just discharged from [facility] for GI bleed. Eliquis and aspirin have been put on hold. She was originally scheduled for DCCV today with Dr. Keyes. Jardiance was stopped, and metoprolol was reduced to 100mg daily.She underwent CYLINDER GRINDER on 07/10/24 and now presents for AVN [...] Continue anticoagulation. Brian Potter MD Cardiac Electrophysiology. 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 EP / [facility] VASCULAR LAB (Cath) Providers: Brian Potter MD Clinical information reviewed: Allergies Meds OB Status Physical Exam Airway Mallampati: II TM distance: >3 FB Neck ROM: full Cardiovascular Dental Pulmonary Abdominal Anesthesia Plan ASA 2 CSE Additional Equipment Requests [facility] 07-17-2024 Note PR Cardiology - [facility] Subjective Harman Mcleod is [...] List Diagnosis Angina pectoris (CMS/HCC) Atherosclerosis of [place] coronary artery of [place] heart without angina pectoris Dyslipidemia Dyspnea Gastroesophageal [...] Diagnosis Date Abnormal ECG Arrhythmia Atrial fibrillation ([facility]) CAD (coronary artery disease) Cancer ([facility]) CHF (congestive heart failure) ([facility]) Chronic kidney disease COPD (chronic obstructive pulmonary disease) ([facility]) Diabetes mellitus ([facility]) GI bleed Heart murmur Hyperlipidemia Hypertension PVD (peripheral vascular disease) ([facility]) Past Surgical History: Procedure Laterality Date CARDIAC [...] m (5' 1 (more content not included)... [facility] 07-10-2024 Note CYLINDER GRINDER-D IMPLANT PROCED URE NOTE DATE OF PROCEDURE: 07/10/2024 PERFORMING PHYSICIAN: Dr. Brian Potter QUALITY CONTROL LAB TECH: SAVAGE CONSENT: Patient LOCATION: [facility] [employer] Manager PROCEDURE PERFORMED: 1. Implantation of Biventricular ICD ([employer]) 2. U/S venous access 3. Coronary [...] be in A-fib. She was just [facility] bleed. Eliquis and aspirin have [...] dizziness/lightheadedness. Decision was made to proceed with CYLINDER GRINDER-D device and an AVN ablation. PROCEDURAL DETAILS: [...] occasions using seldinger technique using a 5 [place] micropunture needle and exchanged for 0.034 wire. I decided to proceed with opening of the pocket. Localinfiltration of 1% Lidocaine was performed and an incision was created in the left upper chest. Dissection was then performed using cautery down. An active fixation [employer] ICD lead was then delivered through the 8F sheath to the right ventricle. After confirmation of lead position on orthogonal views (JAIMES and ESTONIAN) to confirm position in the septal aspect, [...] postero-lateral branch that was fairly good size. [place]-Tammy catheter was then taken out and a 90degree inner cannula was advanced into the CS. The amplatz wire was removed and then a0.24 wire was used as a emily wire. I then used a whisper wire and this tracked into the posterolateral vein. [employer] S shaped lead was advanced over 0.014 wire into the lateral border. Once the guiding sheaths were removed, the lead was secured in the pocket using three 0- Silk sutures.The leads were then attached to a [employer] CYLINDER GRINDER-D device and the leads tug tested and [...] was placed o (more content not included)... 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 Use of blood products discussed with patient who. Additional Equipment Requests [facility] 07-10-2024 Note Betadine nasal swabs completed. Pt did CHG wipes last night. Pt stated that the wipes made her break out. Pt does not want to use the wipes again preprocedure. [facility] 07-02-2024 Note PR Electrophysiology Consult Note PR Cardiology [facility] Reason for visit: Afib HPI: [...] in A-fib. She was just discharged from [facility] for GI bleed. Eliquis and aspirin have [...] disease) Cancer (CMS/HCC) CHF (congestive heart failure) ([facility]) Chronic kidney disease COPD (chronic obstructive pulmonary disease) ([facility]) Diabetes mellitus ([facility]) GI bleed Heart murmur Hyperlipidemia Hypertension PVD (peripheral vascular disease) ([facility]) PSH: Past Surgical History: Procedure Laterality Date [...] on file Intimate Partner Violence: Unknown (11/02/2023) [place] [facility] [place] Fear of Current or [...] mouth two times daily. fish oil concentrate ([place]-3) 120-180 mg capsule Take 1,000 mg by [...] mouth at bedti (more content not included)... [facility] 06-20-2024 History of Present illness Narrative Patient: Harman Mcledo : 1940 PCP: Mateus Perry MD SUBJECTIVE [...] Partner Violence: Unknown (11/02/2023) [facility] [place] [facility] Fear of Current [...] and negative PT pedal pulses NEURO: 5.07 [place] Sybil monofilament test intact to digits and forefoot bilaterally 125Hz tuning fork diminished to 1st MPJ bilaterally ORTHO: Positive pain on palpation to nails 1 through 10 Positive pain palpation left anterior braun ASSESSMENT 1. Venous insufficiency 2. Hav (hallux abducto valgus), left 3. Acquired deformity of left toe 4. 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 Diabetes mellitus due to underlying condition with diabetic polyneuropathy, 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 alf insulin use ([facility]) 6. Pain due to onychomycosis of [...] DSD applied . Patient currently has the [facility] wound center applying Medihoney every other day. Did discuss possibility if no improvement to contact Podiatry for advanced wound care treatments or if any signs of infection Peyman Hensley DPM documented in this encounter [facility] 06-12-2024 Note PR Cardiology - [facility] Subjective Harman Mcleod is a 83 y.o. year old female patient being seen for follow up echo performed on 06/04/2024. Denies chest pain, SOB, and palpitations. Feels good but is tired today. BP at home was 107/71 today and yesterday 114/55. Patient Active Problem List Diagnosis Angina pectoris (CMS/HCC) Atherosclerosis of [place] coronary artery of [place] heart without angina pectoris Dyslipidemia Dyspnea Gastroesophageal [...] alert and orie (more content not included)... [facility] 05-27-2024 Note Remains on ASA No c/o angina or concerns [facility] 05-27-2024 Note As above [facility] 05-27-2024 Note [id number]= 6-7 at least with Age, Sex, CHF, CAD/Vascular disease, HTN, DM Currently per assessment she appears to be in rhythm heart rate well-controlled with metoprolol 200 mg daily and she remains on Eliquis anticoagulation without any bleeding tendencies or concerns. [facility] 05-27-2024 Note Lipid abnormalities are elevated therefore will increase zocor to 40 mg daily. Will repeat lipid level and liver function in 2-3 months [facility] 05-27-2024 Note Congestive heart ivanemily todd is stable without worsening symptoms [facility] II -currently patient is euvolemic without exacerbation. [...] helps prevent rehospitalization for heart failure exacerbation [facility] 05-27-2024 Note Hypertension current ly is well-controlled at 106/67 Continue amlodipine, hydralazine, Imdur, Toprol and spironolactone Currently renal function normal, no acute concerns. [facility] 05-27-2024 Note Coronary artery dise [...] exercise as tolerated and continue all medications. [facility] 05-27-2024 Note Pt is here for a one year follow up. Pt denies chest pain, palpatations, sob. Review of Systems All other systems reviewed and are negative. [facility] 05-27-2024 Note [facility]TP CARDIOLOGY PROGR [...] systems reviewed and are negative Admit to [facility] 02/13/24 DC Summary DS: Summary Hospital Course [...] 81 mg by mouth. fish oil concentrate ([place]-3) 120-180 mg capsule Take 1,000 mg by [...] 112 mcg tabl (more content not included)... [facility] 04-10-2024 Progress note Note Date/Time April 10, 2024 10:30am [facility] [address] [place] [address] Wound Center Provider Note Signed Patient: Harman Mcleod MR#: [id number] : 1940 Acct:[id number] Age/Sex: 83 / F Copies to: MD Janell Oliver, FERNY~ HPI Date of Visit Date of Visit: Date of Service: 04/10/2024 Time of Service: 10:26 Narrative HPI: 12/11/23 Harman is an 83 year old [facility] [...] present for the entire visit, she has [facility], the left leg will be treated [...] wrapped again today for good measure and [facility] can remove next week and start stockings or wraps if something is open on the legs, family and friend present for the visit, does not need to return to the office unless new ulcers do develop, spoke about her getting established with a resolution specialist and so hopefully she will follow [...] wraps today and she can use the irmma wrapsor compression socks and her compression pumps, [...] to go to the ED per the [facility] nurse but she had refused this and [...] bilateral lower leg ulcers Mode of Arrival/ Legal Arbitrator: Friend Assistive Device Used Today: Walker Lives with:: Significant Other Appetite Description: Within Normal Limits Who helps w/ dressing change?: Home Health Why Do You Need Help?: Can't Reach Ulcer, Limited mobility, Unsafe leave home byself and Taxing effort to leave home Smoking Status: Former smoker [facility] Medical History (Updated 04/10/24 @ 10:30 [...] DAILY 04/25/19 [History Confirmed 12/11/23] omega-3s 300 ob-odl-lfk-other [id number] oil 1,000 mg capsule ([place]-3 Fish Oil) 2 cap PO BID 04/25/19 [...] Stasis Ulcer Thickness: Skin Breakdown Bed Appearance: [place] Percent of Wound Bed Granulated/Red: 100 Percent [...] <Electronically signed by FERNY Mathews> 04/10/24 1030 [facility] Work Phone: 1(515) 449-308807-16-2024 Progress note Author Janell Mathews [facility] March 26, 2024 9:51am Note Date/Time March 26, 2024 9:51 am [facility] [address] [place] [address] Wound Center Provider Note Signed Patient: Harman Mcleod MR#: [id number] : 1940 Acct:[id number] Age/Sex: 83 / F Copies to: MD Janell Oliver APRN~ HPI Date of Visit Date of Visit: Date of Service: 03/26/2024 Time of Service: 09:47 Narrative HPI: 12/11/23 Harman is an 83 year old [facility] for an initial visit [...] present for the entire visit, she has [facility], the left leg will be treated [...] wrapped again today for good measure and [facility] can remove next week and start stockings or wraps if something is open on the legs, family and friend present for the visit, does not need to return to the office unless new ulcers do develop, spoke about her getting established with a resolution specialist and so hopefully she will follow [...] to go to the ED per the [facility] nurse but she had refused this and [...] bilateral lower leg ulcers Mode of Arrival/ Legal Arbitrator: Friend Assistive Device Used Today: Walker Lives with:: Significant Other Appetite Description: Within Normal Limits Who helps w/ dressing change?: Home Health Why Do You Need Help?: Can't Reach Ulcer, Limited mobility, Unsafe leave home byself and Taxing effort to leave home Smoking Status: Former smoker [facility] Medical History (Updated 02/13/24 @ 10:54 by Jaenll Mathews APRN) Leg ulcer, left Cataract Problem [...] of Phys. EHR [facility] Hyperthyroidism Problem List clean-up per request of [...] DAILY 04/25/19 [History Confirmed 12/11/23] omega-3s 300 yg-mkf-ycv-other [id number] oil 1,000 mg capsule ([place]-3 Fish Oil) 2 cap PO BID 04/25/19 [...] Breakdown Bed Appearance: Epithelial Tissue or Bridge, Lowpoint and Yellow Percent of Wound Bed Granulated/Red: [...] <Electronically signed by FERNY Mathews> 03/26/24 0951 [facility] Work Phone: 1(750) 662-449006-04-2024 Progress note Author Janell Mathews [facility] February 13, 2024 10:55am Note Date/Time February 13, 2024 10:55 am [facility] [address] [place] [address] Wound Center Provider Note Signed Patient: Harman Mcleod MR#: [id number] : 1940 Acct:[id number] Age/Sex: 83 / F Copies to: MD Janell Oliver APRN~ HPI Date of Visit Date of Visit: Date of Service: 02/13/2024 Time of Service: 10:47 Narrative HPI: 12/11/23 Harman is an 83 year old [facility] [...] present for the entire visit, [facility], the left leg will be [...] spoke about her getting established with a resolution specialist and so hopefully she will follow [...] to go to the ED per the [facility] nurse but she had refused this and wanted to come to this appt instead Subjective Pain Left Leg: Pain Description: Intermittent Pain Intensity: 0 Wound/Ulcer History When did wound start?: August 2023 bilateral lower leg ulcers Mode of Arrival/ Legal Arbitrator: Friend Assistive Device Used Today: Walker Lives with:: Significant Other Appetite Description: Within Normal Limits Who helps w/ dressing change?: Home Health Why Do You Need Help?: Can't Reach Ulcer, Limited mobility, Unsafe leave home byself and Taxing effort to leave home Smoking Status: Former smoker [facility] Medical History (Updated 02/13/24 @ 10:54 [...] DAILY 04/25/19 [History Confirmed 12/11/23] omega-3s 300 rm-bvp-qoi-other lettf9a-smjr oil 1,000 mg capsule ([place]-3 Fish Oil) 2 cap PO BID 04/25/19 [...] Posterior Thigh: Bed Appearance: Beefy Red and Lowpoint Percent of Wound Bed Granulated/Red: 0 Percent [...] <Electronically signed by FERNY Mathews> 02/13/24 1055 [facility] Work Phone: 1(554) 388-531105-21-2024 Progress note Author Janell Mathews [facility] January 30, 2024 10:44am Note Date/Time January 30, 2024 10:44 am [facility] [address] [place] [address] Wound Center Provider Note Signed Patient: Harman Mcleod MR#: [id number] : 1940 Acct:[id number] Age/Sex: 83 / F Copies to: MD Janell Oliver APRN~ HPI Date of Visit Date of Visit: Date of Service: 01/30/2024 Time of Service: 10:37 Narrative HPI: 12/11/23 Harman is an 83 year old [facility] visit [...] present for the entire visit, she has [facility], the left leg will be treated [...] spoke about her getting established with a resolution specialist and so hopefully she will follow [...] bilateral lower leg ulcers Mode of Arrival/ Legal Arbitrator: Friend Assistive Device Used Today: Walker Lives with:: Significant Other Appetite Description: Within Normal Limits Who helps w/ dressing change?: Home Health Why Do You Need Help?: Can't Reach Ulcer, Limited mobility, Unsafe leave home byself and Taxing effort to leave home Smoking Status: Former smoker [facility] Medical History (Updated 01/30/24 @ 10:43 [...] DAILY 04/25/19 [History Confirmed 12/11/23] omega-3s 300 se-iry-hmf-other lcvos9u-oicd oil 1,000 mg capsule ([place]-3 Fish Oil) 2 cap PO BID 04/25/19 [...] Posterior Thigh: Bed Appearance: Beefy Red and Lowpoint Percent of Wound Bed Granulated/Red: 100 Percent [...] <Electronically signed by FERNY Mathews> 01/30/24 1044 [facility] Work Phone: 1(249) 281-253004-18-2024 Progress note Author Janell Mathews [facility] December 28, 2023 11:22am Note Date/Time December 28, 2023 11: 22am [facility] [address] [place] [address] Wound Center Provider Note Signed Patient: Harman Mcleod MR#: [id number] : 1940 Acct:[id number] Age/Sex: 83 / F Copies to: MD Janell Oliver APRN~ HPI Date of Visit Date of Visit: Date of Service: 12/28/2023 Time of Service: 11:19 Narrative HPI: 12/11/23 Harman is an 83 year old [facility] visit [...] present for the entire visit, she has [facility], the left leg will be treated [...] wrapped again today for good measure and [facility] can remove next week and start stockings or wraps if something is open on the legs, family and friend present for the visit, does not need to return to the office unless new ulcers do develop, spoke about her getting established with a resolution specialist and so hopefully she will follow through on that, spoke about compression socks too forlong term use Subjective Pain Left Leg: Pain Intensity: 0 Wound/Ulcer History When did wound start?: August 2023 bilateral lower leg ulcers Mode of Arrival/ Legal Arbitrator: Friend Assistive Device Used Today: Walker Lives with:: Significant Other Appetite Description: Within Normal Limits Who helps w/ dressing change?: Home Health Why Do You Need Help?: Can't Reach Ulcer, Limited mobility, Unsafe leave home byself and Taxing effort to leave home Smoking Status: Former smoker [facility] Medical History (Updated 12/11/23 @ 09:30 [...] DAILY 04/25/19 [History Confirmed 12/11/23] omega-3s 300 lp-lxr-jqo-other vjqca8t-ljpl oil 1,000 mg capsule ([place]-3 Fish Oil) 2 cap PO BID 04/25/19 [...] <Electronically signed by FERNY Mathews> 12/28/23 1122 [facility] Work Phone: 1(627) 476-949004-01-2024 Progress note Author Janell Mathews [facility] December 11, 2023 9:35am Note Date/Time December 11, 2023 9:35 am [facility] [address] [place] [address] Wound Center Provider Note Signed Patient: Harman Mcleod MR#: [id number] : 1940 Acct:[id number] Age/Sex: 83 / F Copies to: MD Janell Oliver APRN~ HPI Date of Visit Date of Visit: Date of Service: 12/11/2023 Time of Service: 09:27 Narrative HPI: 12/11/23 Harman is an 83 year old [facility] visit [...] present for the entire visit, she has [facility], the left leg will be treated [...] bilateral lower leg ulcers Mode of Arrival/ Legal Arbitrator: Friend Assistive Device Used Today: Walker Lives with:: Significant Other Appetite Description: Within Normal Limits Who helps w/ dressing change?: Home Health Why Do You Need Help?: Can't Reach Ulcer, Limited mobility, Unsafe leave home byself and Taxing effort to leave home Smoking Status: Former smoker [facility] Medical History (Updated 12/11/23 @ 09:30 [...] DAILY 04/25/19 [History Confirmed 12/11/23] omega-3s 300 bm-apw-hgc-other rkbhz2g-quvo oil 1,000 mg capsule ([place]-3 Fish Oil) 2 cap PO BID 04/25/19 [...] Breakdown Bed Appearance: Epithelial Tissue or Bridge, Lowpoint and Yellow Percent of Wound Bed Granulated/Red: [...] By: <Electronically signed by FERNY Mathews> 12/11/23934 [facility] Work Phone: [phone]) 977-199910-10-2023 NoteHNO ID: [id number] Author: Winnie Guzmán PA-C Service: ? Author Type: Physician Spanisher Type: Progress Notes Filed: 06/20/2023 3:58 PM Note Text: PATIENT NAME: Harman Mcleod CLINIC NO.: [id number] ATTENDING PHYSICIAN: Wallace Stone MD DATE OF [...] Negative LVI, 2 SNL negative, ER and MI >95% positive, Her2 IHC 1+ Treatment History: [...] 6.4 10/24/2017 7.3 Al (more content not included)...[facility]10-10-2023 Nurse Note * Lina Lopes MA - 06/20/2023 2:49 PM EDT Patient would like to know if she needs a mammogram? She was told in Oct that she would need one in6 months. Lina Lopes MA documented in this encounterMorrow [facility] Hospital10-10-2023 History of Present illness Narrative* Winnie Guzmán PA-C - 06/20/2023 2:30 PM EDT Images from the original note were not included. PATIENT NAME: Harman Mcleod [facility] NO.: [id number] ATTENDING PHYSICIAN: Wallace Stone MD DATE OF [...] Negative LVI, 2 SNL negative, ER and MI >95% positive, Her2 IHC 1+ Treatment History: [...] of vagina (HGSIL) 12/[address] Marco aMi High risk HPV infection History of blood [...] Range Status 06/20/2023 4.8 % Final Abs [place] Date Value Ref Range Status 06/20/2023 0.49 [...] follow up. R Breast T1b,N0,M0- ER and MI >95% positive and Her-2 IHC 1+ tumor post Lumpectomy and SNL 10/2022. Reviewed path and she elected not to proceed with XRT and started Arimidex in 11/2022. Continues to tolerate well. Mammogram in 07/2023 (order placed). See us in 4 months. Plan is for 5 years of AI therapy Osteoporosis- On Prolia started 08/[address] Perry Vulvar high grade dysplasia- Follows Leach Cell Operator Onc at [facility] R Leg swelling and pain and h/o PVD- Follows vascular HTN--managed by PCP Winnie Guzmán PA-C CC: MD Mateus Spicer MD documented in this encounterMorrow [facility] Hospital09-21-2023 Evaluation note* Encounter Date Diagnosis Assessment [...] In addition I took her to the Flight Control Manager and performed a right iliac venogram which [...] her a second opinion at the [facility] vascular medicine program. She declined. I will see her as needed in the future. [facility] Other 06-29-2023 Evaluation note* Encounter Date Diagnosis [...] to call us with any concerns whatsoever. [facility] Other 06-06-2023 NoteHNO ID: [id number] Author: Wallace Stone MD Service: ? Author Type: Physician Type: Progress Notes Filed: 02/14/2023 10:49 AM Note Text: PATIENT NAME: Harman Mcleod CLINIC NO.: [id number] ATTENDING PHYSICIAN: Wallace Stone MD DATE OF [...] Negative LVI, 2 SNL negative, ER and MI >95% positive, Her2 IHC 1+ Treatment History: [...] 04/28/2020 1.12 BUN (mg/dL) (more content not included)...[facility]06-06-2023 History of Present illness Narrative* Wallace Stone MD - 02/14/2023 10:37 AM EDT Images from the original note were not included. PATIENT NAME: Harman Mcleod CLINIC NO.: [id number] ATTENDING PHYSICIAN: Wallace Stone MD DATE OF [...] Negative LVI, 2 SNL negative, ER and MI >95% positive, Her2 IHC 1+ Treatment History: [...] Range Status 02/14/2023 8.3 % Final Abs [place] Date Value Ref Range Status 02/14/2023 0.86 [...] follow up. R Breast T1b,N0,M0- ER and MI >95% positive and Her-2 IHC 1+ tumor post Lumpectomy and SNL 10/2022. Reviewed path and she elected not to proceed with XRT and started Arimidex in 11/2022 and toleraing well. Plan for 5 years of therapy. Osteoporosis- On Prolia started 08/[address] Perry Vulvar high grade dysplasia- Follows Leach Cell Operator Onc at [facility] R Leg swelling and pain and h/o PVD- Follows vascular HTN Rash- refer to Derm Thank you for the kind referral. If there are any questions and or concerns please do not hesitate to contact me at [phone]. Wallace Stone MD Hematology/Medical Oncology [facility] I spent a total of 30 minutes on the date of the service which included preparing to see the patient, qutd-ti-cgms patient care, completing clinical documentation, obtaining and/or reviewing separately obtained history, performing a medically appropriate examination, counseling and educating the pat ient/family/caregiver, and ordering medications, tests, or procedures. CC: MD Mateus Spicer MD documented in this encounterMorrow County Hospital03-29-2023 Evaluation note* Encounter Date Diagnosis Assessment [...] primary care provider as well as her complex director. We will continue to follow her along and see her again in a couple of months and see how she is doing with her pumps, conservative efforts, and weight management. She knows to call us in the meantime with any other additional concerns or complaints. [facility] Other 03-21-2023 [facility]* Encounter Date Diagnosis Assessment [...] specified soft tissue disorders (ICD-10 - M79.89) [facility] Other 03-08-2023 Miscellaneous Notes* Telephone Encounter - Adriana Pereira Pss - 11/16/2022 8:40 AM EST Called Vascular office spoke with Jessy. They have received this referral and have patient scheduledwith Dr Gonzales on 11/23 @ 10:00. Adriana Pereira Pss * Telephone Encounter - Kira Ko [facility] - 11/10/2022 9:38 AM EST Records faxed. * Telephone Encounter - Adriana Pereira [facility] - 11/10/2022 8:46 AM EST Janeth: Information ready for you. Adriana Pereira Pss Electronically signed by Adriana Pereira [facility] at 11/10/2022 8:46 AM EST * Telephone Encounter - Carlos Brooks - 11/09/2022 2:44 PM EST Vascular Consult [facility] Previous patient of Dr. Mendez 3 years or more. Janeth/Dudley: Can you please refer patient and follow up? Thanks! Carlos Brooks documented in this encounterMorrow County Hospital03-01-2023 NoteHNO ID: [id number] Author: Wallace Stone MD Service: ? Author Type: Physician Type: Progress Notes Filed: 11/09/2022 2:24 PM Note Text: PATIENT NAME: Harman Mcleod CLINIC NO.: [id number] ATTENDING PHYSICIAN: Wallace Stone MD DATE OF SERVICE: November 09, [address] Banks referring provider defined for this encounter. here is an update on a follow up visit on female Harman Mcleod at the clinic 11/09/2022 Diagnosis: T1b, N0, M0- R breast, Tumor 9 mm, Grade 2, Margins negative, Negative LVI, 2 SNL negative, ER and MI >95% positive, Her2 IHC 1+ Treatment History: [...] (mg/dL) Date Value 0 (more content not included)...[facility]03-01-2023 History of Present illness Narrative* Wallace Stone MD - 11/09/2022 2:00 PM EST Images from the original note were not included. PATIENT NAME: Harman Mcleod CLINIC NO.: [id number] ATTENDING PHYSICIAN: Wallace Stone MD DATE OF SERVICE: November 09, 2022 Dear No referring provider defined for this encounter. here is an update on a follow up visit on female Harman Mcleod at the clinic 11/09/2022 Diagnosis: T1b, N0, M0- R breast, Tumor 9 mm, Grade 2, Margins negative, Negative LVI, 2 SNL negative, ER and MI >95% positive, Her2 IHC 1+ Treatment History: [...] follow up. R Breast T1b,N0,M0- ER and MI >95% positive and Her-2 IHC 1+ tumor post Lumpectomy and SNL 10/2022. Reviewed path and she may skip radiation and also discussed hormonal; therapy with an AI and she will start Arimidex. Discussed adverse events and she wishes to proceed. Osteoporosis- On Prolia started 08/[address] Perry Vulvar high grade dysplasia- Follows Leach Cell Operator Onc at [place] and next appointment 11/24/2022 CRI R Leg swelling and pain and h/o PVD- refer to vascular HTN Thank you for the kind referral. If there are any questions and or concerns please do not hesitate to contact me at [phone]. Wallace Stone MD Hematology/Medical Oncology [facility] [place] spent a total of 30 minutes on the date of the service which included preparing to see the patient, qsgh-ji-htgm patient care, completing clinical documentation, obtaining and/or reviewing separately obtained history, performing a medically appropriate examination, counseling and educating the pat ient/family/caregiver, and ordering medications, tests, or procedures. CC: MD Mateus Spicer MD documented in this encounterMorrow County Hospital02-08-2023 NoteOPERATIVE NOTE OPERATION DATE: 10/19/2022 PREOPERATIVE DIAGNOSIS: Right breast cancer. POSTOPERATIVE DIAGNOSIS: Right breast cancer. PROCEDURE: Needle localized right breast lumpectomy with sentinel lymph node biopsy. SURGEON: Iliana Gagnon M.D. ANESTHESIA: General laryngeal mask airway. SILICATOR: SADI Hammer ESTIMATED BLOOD LOSS: Less than [...] in good condition. CC: Mateus Perry M.D.[facility] [id number] NoteEXAMINATION: XR CHEST 2 V HISTORY: Pre-surgery [...] Electronically authenticated by: ALFONSO GEORGE Date: 2022-10-11 12:11[facility]01-13-2023 NoteHNO ID: [id number] Author: Marcin Shah MD Service: ? Author Type: Physician Type: Progress Notes Filed: 2022 6:06 AM Note Text: Radiation Oncology - New Patient/Consult Note PATIENT NAME: Harman Mcleod PATIENT REQUESTING PHYSICIAN: Dr. 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 PATIENT IDENTIFICATION: This patient was seen in the Department of Radiation Oncology at the [facility] with Marcin Shah MD. She was accompanied today by her family. Final recommendations will be communicated back to the requesting physician by way of the shared medical record, or letter to requesting physician via US mail. HISTORY OF PRESENT ILLNESS: Ms. Mcleod is an 82-year-old woman from [place], [place] who was discovered on screening mammogram from July 2022 to have an abnormality within the anterior upper outer quadrant of the right breast. This was confirmed on ultrasound and she underwent stereotactic biopsy on 08/19/2022 with pathology revealing intermediate grade IDC that was ER/MI positive HER2 negative. She has met with [...] acetaminophen (TYLENOL EXTRA STRENGTH (more content not included)...[facility]01-12-2023 History of Present illness Narrative* Marcin Shah MD - 09/22/2022 11:38 PM EST Images from the original note were not included. Radiation Oncology - New Patient/Consult Note PATIENT NAME: Harman Mcleod PATIENT Signed: Marcin Shah MD I spent a total of 60 minutes on the date of the service which included preparing to see the patient, pfuk-yz-gkqs patient care, and counseling and educating the patient/family/caregiver. This document has been created with the use of voice recognition technology. It may contain inaccuracies, misspellings, inaccurate syntax or inappropriate word context that are a result of the inadequacies/shortcomings of said technology/software. documented in this encounterMorrow County Hospital01-12-2023 NoteHNO ID: [id number] Author: Wallace Stone MD Service: ? Author Type: Physician Type: Progress Notes Filed: 09/22/2022 5:19 PM Note Text: PATIENT NAME: Harman Mcleod CLINIC NO.: [id number] ATTENDING PHYSICIAN: Wallace Stone MD DATE OF [...] provisional grade 1 through 2, ER and MI greater than 95% positive, HER2/holden negative with an IHC score of 1+ and [facility]. This patient was subsequently referred to Dr. Iliana Gagnon for surgical consultation. Patient denies any previous history of abnormal mammograms and or breast biopsy. She has had a recent bone density in [place] and was diagnosed with osteoporosis and started on Prolia as well. Patient has a sister who was diagnosed with breast cancer at the age of 82 and her daughter diagnosed with breast cancer at the age of 37. She quit smoking approximately 4 years ago. 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 [...] mouth daily at bedtime. Cut in half Rlzxj-9-WMS-EPA-Fish Oil 1,000 mg (120 mg-180 mg) cap [...] mellitus, type 2) (HCC) (more content not included)...[facility]01-12-2023 History of Present illness Narrative* Wallace Stone MD - 09/22/2022 5:10 PM EST Images from the original note were not included. PATIENT NAME: Harman Mcleod CLINIC NO.: [id number] ATTENDING PHYSICIAN: Wallace Stone MD DATE OF [...] provisional grade 1 through 2, ER and MI greater than 95% positive, HER2/holden negative with an IHC score of 1+ and FISH negative at [facility]. This patient was subsequently referred to Dr. Iliana Gagnon for surgical consultation. Patient denies any previous history of abnormal mammograms and or breast biopsy. She has had a recent bone density in [place] and was diagnosed with osteoporosis and started on Prolia as well. Patient has a sister who was diagnosed with breast cancer at the age of 82 and her daughter diagnosed with breast cancer at the age of 37. She quit smoking approximately 4 years ago. 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 [...] mouth daily at bedtime. Cut in half Hubnk-7-SYZ-EPA-Fish Oil 1,000 mg (120 mg-180 mg) cap [...] ductal carcinoma, provisional grade 1-2, ER and MI greater than 95% positive, HER2/holden negative with [...] me to participate in Mrs. Harman Mcleod [facility], ifthere are any questions or concerns please do not hesitate to contact me at the number below. Wallace Stone M.D. Hematology/Medical Oncology [facility] [phone] CC: MD Mateus Spicer MD I spent a total of 60 minutes on the date of the service which included preparing to see the patient, mbiv-ci-lyio patient care, completing clinical documentation, obtaining and/or reviewing separately obtained history, performing a medically appropriate examination, counseling and educating the pat ient/family/caregiver, ordering medications, tests, or procedures, and communicating with other HCPs (not separately reported). documented in this encounterMorrow County Hospital01-12-2023 Miscellaneous Notes* Telephone Encounter - aLrs Wilkerson RN - 09/22/2022 3:52 PM EST [...] involved. Lars Wilkerson RN documented in this encounterMorrow County Hospital12-30-2022 NoteChief Complaint consultation for right breast [...] biopsy that r evealed invasive ductal carcinoma, ER/MI +; Her2 holden negative; patient denies change [...] gms IV prior to OR SCDs Or[facility]: [facility] Referral [facility] External Ambulatory Referral 2. Chronic anticoagulation (Z79.01: detention (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) hold Eliquis 2 days prior to surgery, if ok with Cardiology. 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 Garza. documented in this encounterTE[facility]ITALV[facility] Phone: 1(537) 736-848010-18-2022 Hospital Discharge instructions* Discharge Instructions* Brody Ken [...] urinate call your doctor documented in this encounterTEWKS[facility]ITALV[facility] Phone: 1(423) 434-411404-04-2022 History of Present illness Narrative* Brody Ken [...] Plunkett MD - 12/13/2021 2:12 PM EDT Le[facility] Cell Operator Oncology Attending Note Patient seen and evaluated [...] chart for or 12/13/21 documented in this [facility] Phone: 1(778) 494-777904-04-2022 Evaluation note* Diagnosis Vaginectomy w/ Cysto 4/4/22- Primary Other postprocedural status documented in this encounter [facility] Phone: 1(165) 862-887804-04-2022 Hospital Discharge instructions* Instructions* Brody Ken RN [...] of: May 19, 2021 Content Version: 13.2 [employer]. Care instructions adapted under license by [employer]. If you have questions about a medical condition or this instruction, always ask your healthcare professional. [employer] disclaims any warranty or liability for your [...] urinate call your doctor documented in this [facility] [employer] [facility] Phone: 1(467) 595-468003-28-2022 History of Present illness Narrative* YANA Wallis [...] Disease: Yes, stents x 3, Dr. Keyes ([facility]) Hypertension: yes Active smoker: Quit 2017, [...] pcp potassium 3.3,wbc 12.6 documented in this [facility] Phone: [phone]) 103-142203-25-2022 Hospital Discharge instructions* Instructions* Yoanna Diaz, YANA [...] drive you home after your procedure. Your powder truck driver must be 18 years of [...] questions, call the Pre-Admission Testing Unit at [phone]. Day of Surgery/Procedure As a patient at [facility] you can expect quality medical and nursing care that is centered on your individual needs. Our goal is to make your surgical experience as comfortableas possible . Directions to the Surgery Center [facility] is located at [address] [place] [address]. Please pull into the Emergency parking lot and stop at the cardio clinician richards. We offer free cardio clinician service for all our surgery patients, if you choose not to have cardio clinician parking we have additional parking across the street.You will enter the facility following the [facility] sign. Please stop at the front desk receptionist desk where you will be checked in by the staff. If you have any questions please call [phone]. Transportation after your procedure. You will need a friend or family member to drive you home after your procedure. Your powder truck driver must be18 years of age [...] You may shave your face or neck. Pimento your teeth but do not swallow water. [...] or the day of surgery, please call [phone], or [phone] documented in this [facility] Work Phone: 1(160) 638-593410-05-2021 History of Present illness Narrative* Parvin Rogel RN - 06/15/2021 10:[address] Kamla gan, pt cleared for phase II * Alla Dickerson DO - 06/15/2021 9:42 AM EDT OB Resident Progress Note Patient may be discharged home once she has met criteria in the PACU. Please perfect serve or page CLIENT REPRESENTATIVE resident listed below with any questions, concerns, or if patient has not met PACU discharge criteria in 2-3 hours. . Please page first. Alla Dickerson DO CLIENT REPRESENTATIVE Resident PGY3 Pager: [phone] [facility], [facility] 06/15/2021, 9:42 AM documented [facility] this [facility] Phone: [phone]) 847-179710-04-2021 Hospital Discharge instructions* Instructions* Alla Dickerson DO [...] cleared by your physician documented in this [employer] Phone: 1(519) 381-799509-01-2021 Hospital Discharge instructions* Instructions* Na Cabezas APRN - MARKETING COMMUNICATIONS LEADER - 05/12/2021 Pre-operative Instructions Please arrive at [...] public transportation ALONE is not acceptable. -Your powder truck driver must be 18 years of [...] Day of Surgery/Procedure As a patient at [facility] you can expect quality medical and nursing care that is centered on your individual needs. Our goal is to make your surgical experience as comfortableas possible . Directions to the Surgery Center [facility] is located at [address] [place] [address]. Please pull into the Emergency/Surgery Center parking lot and stop at the cardio clinician richards. We offer free cardio clinician service for all our surgery patients, if you choose not to have cardio clinician parking we have additional parking across the [...] pharmacy bottles in a zip lock bag. Pimento your teeth but do not swallow water. [...] DAY OF your surgery, you may call [phone] documented in this [employer] Phone: 1(931) 904-102209-01-2021 History of Present illness Narrative* Mandy Baker [...] edema Pneumonia PVD (peripheral vascular disease) ([facility]) Thyroid disease Under care of team 05/12/2021 dr Perry [facility]-last visit apr 2021 Under care of team 05/12[facility] Varicose vein of leg Patient was evaluated in [facility] & anesthesia guidelines were applied. NPO guidelines, medication instructions and scheduled arrival time were reviewed with patient. Anesthesia contacted: Yes I spoke with Dr. Rondon. Patient history and pertinent findings reviewed. Patient with history of CAD, CHF, stress test and cardiac echo (results not in Epic, from outside provider), cardiac stentx 3. Last saw complex director in December 2020. On Eliquis and aspirin prescribed from her complex director. Medical or cardiac clearance ordered: cardiac FERNY Andres CNP 05/12/21 2:43 PM [facility] Work Phone: evaluation + Plan noteGeneral Surgery [place] Evaluation + Plan note Future Appointments Appointment Date:11/08/2022 02:00:00 PM Scheduled Provider:Iliana GAGNON MD Location:[facility] Appointment Type:[place] [id number] General Surgery [place] Evaluation + Plan note Future Appointments Appointment Date:11/22/2022 01:40:00 PM Scheduled Provider:Iliana GAGNON MD Location:[facility] Appointment Type: Established 15 General Surgery [place] Evaluation note* Diagnosis Pre-op chest exam Pre-operative respiratory examination documented in this encounter [facility] Phone: evalmmapit note* Diagnosis S/p Partial vaginectomy with Ultrasonic Scalpel 06/15/21- 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, 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 documented in this encounter [facility] Phone: evalgsbsrh note* Diagnosis Pre-op chest exam Pre-operative respiratory examination documented in this encounter [facility] 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 documented in this encounter ENIO BEVERLY [employer] Phone: evalevddah note* Diagnosis 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, estrogen receptor positive (HCC)- Primary [facility]* Diagnosis 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 breast in female, estrogen receptor positive (HCC)- Primary [facility]* Diagnosis 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, estrogen receptor positive (HCC)- Primary Claudication in peripheral vascular disease (HCC) Peripheral vascular disease, unspecified [facility] assessment information [facility] Work Phone: Evaluation noteNo [employer] 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, estrogen receptor positive (HCC)- Primary Rash Rash and other nonspecific skin eruption Other eczema Stage 3a chronic kidney disease (HCC) documented [facility]* Diagnosis Malignant neoplasm of areola of [...] veins of both legs with edema acute [facility] Work Phone: Evaluation note* Diagnosis Onset Date Resolution Status Altered mental status acute Diabetes mellitus acute Edema of both lower legs acu te Inflammation acute Leg ulcer, left acute Leg wound, right acute Open wound of left thigh acu te PAD (peripheral artery disease) acute Uses walker acute Varicose veins of both legs with edema acute [facility] Work Phone: Evaluation note* Diagnosis Hav (hallux abducto valgus), left- Primary Venous insufficiency Unspecified venous (peripheral) insufficiency Acquired deformity of left toe 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 to underlying condition with diabetic polyneuropathy, 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 ([facility]) Pain due to onychomycosis of toenails of both feet [facility] Diagnosis 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)- Primary Diabetes mellitus due to underlying condition with diabetic polyneuropathy, 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 alf insulin use (CMS/HCC) Pain due to onychomycosis of toenails of both feet Venous insufficiency Unspecified venous (peripheral) insufficiency Neoplasm of uncertain behavior of skin documented in this encounter [facility] HealthcareHistory general Narrative - Reported* Type Description Date Medical History DIABETES Medical History HTN Medical History ASTHMA Medical History 3 HEART STENT AND 1 LEG Medical History HYPERLIPIDEMIA Medical History HYPOTHYROID Medical History PAD Surgical History STENT PLACEMENTS Surgical History PSEUDO ANURYSM Surgical History BLADDER SUSPENSION Surgical History HYSTERECTOMY Surgical History RLE & RT RENAL DSA'S, ANGIOPLAS TIES & STENTING 04-25-2019 [employer] Other History general Narrative - Reported* Type [...] History VAGINAL ABLASION OF CANCER CELL S [employer] Other Hospital course Narrative No data available for this section [facility] Discharge instructions No data available for this section General Surgery [place] Progress note No data available for this section [facility] Reason for referral (narrative) Referred by: Iliana GAGNON MD Referred by: Iliana GAGNON MD General Surgery [facility] Rehsrn for referral (narrative)* Diagnostic Procedure Only (Routine) - Pending Review Specialty Diagnoses / Procedures Referred By Jacinta fernandez Referred To Contact [facility] Diagnoses 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, estrogen receptor positive (HCC) Procedures MAGNO DIAGNOSTIC BILATERAL DIAGNOSTIC MAMMOGRAPHY COMPUTER-AIDED DETCJ Winnie Guzmán PA-C [address] [place] [address] [place] [address] [facility] [address] [place] [address] Referral ID Status Reason Start Date Expiration Date Visits Requested Visits Authorized [id number] Pending Review Auto-Generat ed Referral 3 07/19/2024 1 1 [facility] for visit Narrative* Auth/Cert Specialty Diagnoses / Procedures Referred By Jacinta fernandez Referred To Contact Diagnoses Vaginal dysplasia VAGINAL DYSPLASIA Procedures MI OFFICE/OUTPT VISIT,PROCEDURE ONLY MI COMPLETE REMOVAL OF VAGINA WALL MI CYSTOURETHROSCOPY CYSTOSCOPY, VAGINECTOMY Emma Garza MD [address] [facility] [address] [place] [address] [employer] [address] [place] [address] Referral ID Status Reason Start Date Expiration Date Visits Re quested Visits Authorized [id number] 1 1 [facility] Phone: Summary Purpose Family History No Family History Records Found Relationship Condition Age at Onset Recorded Date/T josephine father Unknown mother Unknown Advance Directives No Advanced Directives Records FoundLatest Code Status on File Code Status Date Activated Date Inactivated Comments Full Code 06/28/2022 6:57 AM Documents on File Type Date Recorded 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 Advance Directive(s) 01/16/2017 3:59 PM Documents on File Type Date Recorded 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 Advance Directive(s) 01/16/2017 3:59 [...] [address] [place] [address] Specialty Diagnoses / Procedures Referred By Contac t Referred To Contact Cardiology Diagnoses Pre-op chest exam Procedures EKG 12 lead Kimmie, Lat[place], PA-C [address] [place] [address] Referral ID Status Reason Start Date Expiration Date Visits Re quested Visits Authorized [id number] Open 11/22/2021 11/22/2022 1 1 Specialty Diagnoses / Procedures Referred By Contac t Referred To Contact Vascular Surgery Diagnoses Claudication in peripheral vascular disease (HCC) Procedures CONSULT TO VASCULAR SURGERY OFFICE/OUTPATIENT [facility] 60-74 MINUTES Wallace Stone MD [address] [place] [id number] Referral ID Status Reason Start Date Expiration Date Visits Requested Visits Authorized [id number] Authorized PCP Requested Referral 11/16/2022 11/09/2023 1 1 Specialty Diagnoses / Procedures Referred By Contac t Referred To Contact Dermatology Diagnoses Rash Other eczema Procedures CONSULT TO DERMATOLOGY OFFICE/OUTPATIENT [facility] 60-74 MINUTES Wallace Stone MD [address] [place] [id number] Referral ID Status Reason Start Date Expiration Date Visits Requested Visits Authorized [id number] Authorized PCP Requested Referral 02/14/2023 02/14/2024 1 [...] content) DATE CREATED AUTHOR 02/05/2021 [facility] DATE CREATED AUTHOR AUTHOR'S ORGANIZ ATION 01/22/2023 [facility] DATE CREATED AUTHOR AUTHOR'S ORGANIZ ATION 06/22/2023 [facility] DATE CREATED AUTHOR AUTHOR'S ORGANIZ ATION 06/23/2023 [facility] DATE CREATED AUTHOR AUTHOR'S ORGANIZ ATION 07/13/2023 [facility] DATE CREATED AUTHOR AUTHOR'S ORGANIZ ATION 05/03/2024 [facility] DATE CREATED AUTHOR AUTHOR'S ORGANIZ ATION 09/01/2024 [facility] EPIC DATE CREATED AUTHOR AUTHOR'S ORGANIZ ATION 09/05/2024 [facility] Reason for Visit (unrecogniz ed section and content) Status Reason Specialty Diagnoses / Procedures Re ferred By Contact Referred To Contact Diagnoses 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 Procedures MI REMOVE VAGINA WALL, PARTIAL MI COLPOSCOPY,CERVIX W/ADJ VAGINA PARTICAL VAGINECTOMY WITH ULTRASONIC SCAPEL VAGINAL COLPOSCOPY WITH MICROSCOPE Kin Abarca MD [address] [facility] [address] [place] [address] [facility] Specialty Diagnoses / Procedures Referred By Contac t Referred To Contact Diagnoses Vaginal dysplasia VAGINAL DYSPLASIA Procedures MI OFFICE/OUTPT VISIT,PROCEDURE ONLY MI DESTRUCT,VAGINAL LESION(S),SIMPLE CO2 LASER VAPORIZATION OF LESIONS ([facility] CONF# [id number] - JEREMIAS) Emma Garza MD [address] [facility] [address] [place] [address] [facility] [address] [place] [address] Referral ID Status Reason Start Date Expiration Date Visits Re quested Visits Authorized [id number] 1 1 Reason Comments Care Coordination Surgery [...] 25 g 1 06/28/2022 bacitracin-polymyxin b (POLYSPORIN) [id number] UNIT/GM ointment Apply topically 2 times daily. [...] g 0 06/28/2022 06/28/2022 bacitracin-polymyxin b (POLYSPORIN) [id number] UNIT/GM ointment Apply topically 2 times daily. [...] Attending Provider Active art: March 26, 2024 [employer] Relationship Specialty Start Date End Date Mateus Perry MD [address] [place] [facility] [address] PCP - General Family Medicine 03/04/21 [employer] Relationship Specialty Start Date End Date Mateus Perry MD [address] [place] [facility] [address] PCP - General Family Medicine 03/04/21 [employer] Relationship Specialty Start Date End Date Mateus Perry MD [address] [place] [facility] [address] PCP - General Family Medicine 03/04/21 [employer] Relationship Specialty Start Date End Date Mateus Perry MD [address] [place] [facility] [address] PCP - General Family Medicine 03/04/21 [employer] Relationship Specialty Start Date End Date Mateus Perry MD PCP - General Family Medicine 01/05/17 [employer] Relationship Specialty Start Date End Date Mateus Perry MD PCP - General Family Medicine 01/05/17 [employer] Relationship Specialty Start Date End Date Mateus Perry MD PCP - General Family Medicine 01/05/17 [employer] Relationship Specialty Start Date End Date Mateus Perry MD PCP - General Family Medicine 01/05/17 [employer] Relationship Specialty Start Date End Date Mateus Perry MD PCP - General Family Medicine 01/05/17 [employer] Relationship Specialty Start Date End Date Mateus Perry MD PCP - General Family Medicine 01/05/17 [employer] Relationship Specialty Start Date End Date Mateus Perry MD [address] [place] [address] PCP - General Family Medicine 03/04/21 Team Status: Inactive Member Role Status Dates Mateus Perry MD Primary Care Provider Active Christiano Gonzales MD Attending Provider Active [employer] Relationship Specialty Start Date End Date Mateus Perry MD PCP - General Family Medicine 01/05/17 [employer] Relationship Specialty Start Date End Date Mateus Perry MD PCP - General Family Medicine 01/05/17 Team Status: Inactive Member Role Status Dates Mateus Perry MD Primary Care Provider Active Start: May 01, 2024 End: May 01, 2024 Christiano Gonzales MD Attending Provider Active Start: May 01, 2024 End: May 01, 2024 [employer] Relationship Specialty Start Date End Date aMteus Perry MD [address] [place] [address] PCP - General Family Medicine 02/14/24 [employer] Relationship Specialty Start Date End Date Mateus Perry MD [address] [place] [address] PCP - General Family Medicine 02/14/24 [employer] Relationship Specialty Start Date End Date Mateus Perry MD [address] [place] [address] PCP - General Family Medicine 02/14/24 [employer] Relationship Specialty Start Date End Date Mateus Perry MD [address] [place] [address] PCP - General Family Medicine 02/14/24 Source Comments (unrecognize d section and content) In the event this informatio n is protected by the Federal Confidentiality of Alcohol and Drug Abuse Patient Records regulations: The Federal rules restrict any use of the information to criminally investigate or prosecute any alcohol or drug abuse patient.[facility] the event this information is protected by the Federal Confidentiality of Alcohol and Drug Abuse Patient Records regulations: The Federal rules restrict any use of the information to criminally investigate or prosecute any alcohol or drug abuse patient.[facility] the event this information is protected by the Federal Confidentiality of Alcohol and Drug Abuse Patient Records regulations: The Federal rules restrict any use of the information to criminally investigate or prosecute any alcohol or drug abuse patient.[facility] the event this information is protected by the Federal Confidentiality of Alcohol and Drug Abuse Patient Records regulations: The Federal rules restrict any use of the information to criminally investigate or prosecute any alcohol or drug abuse patient.[facility] the event this information is protected by the Federal Confidentiality of Alcohol and Drug Abuse Patient Records regulations: The Federal rules restrict any use of the information to criminally investigate or prosecute any alcohol or drug abuse patient.[facility] Hospital[facility] the event this information is protected by the Federal Confidentiality of Alcohol and Drug Abuse Patient Records regulations: The Federal rules restrict any use of the information to criminally investigate or prosecute any alcohol or drug abuse patient.[facility] Hospital[facility] the event this information is protected by the Federal Confidentiality of Alcohol and Drug Abuse Patient Records regulations: The Federal rules restrict any use of the information to criminally investigate or prosecute any alcohol or drug abuse patient.[facility] the event this information is protected by the Federal Confidentiality of Alcohol and Drug Abuse Patient Records regulations: The Federal rules restrict any use of the information to criminally investigate or prosecute any alcohol or drug abuse patient.[facility] Goals (unrecognized section and content) Goals [...] BE BASED ON THE PRIMARY CLINICAL RECORDS. [facility] [employer] [facility]. provides no warranty or guarantee of the accuracy or completeness of information in this document.
--- OUTSIDE RECORDS SUMMARY | 2024-09-06 06:25 | XMS_ITS | CCD ---
Author Organization [facility] Care Team Providers Care Field Support Specialist Name Role Phone Mateus Perry MD Primary Care Provider [phone] Mateus Perry Primary Care Physician Mateus Perry MD Primary Care Provider [phone] Mateus Perry MD Primary Care Provider [phone] Mateus Perry Primary Care Provider [phone] MD Christiano Gonzales Attending Provider Christiano Gonzales [...] Unavailable HOY ., DR IGNACIO Consulting Unavailable ALEXIS, DR JUDSON Plunkett Consulting Unavailable MISC, DR [...] HOY ., DR IGNACIO Primary Care Unavailable ALEXIS, DR JUDSON Plunkett Consulting Unavailable NILL ., [...] Unavailable HOY ., DR IGNACIO Consulting Unavailable ALEXIS, DR JUDSON Plunkett Consulting Unavailable HOY ., [...] Care Provider [phone] FERNY Mathews Attending Provider [phone] MD Mateus Perry Primary Care Provider [phone] FERNY Mathews Attending Provider [phone] Mateus Perry Primary Care Unavailable Bisi, Janell Admitting Unavailable Janell Mathews Attending Unavailable Mateus Perry Primary Care Unavailable Janell Mathews Admitting Unavailable Janell Mathews Attending Unavailable Mateus Perry MD Primary Care Provider [phone] PEYMAN HENSLEY Attending Unavailable PEYMAN HENSLEY Attending Unavailable CONCHA, BRIAN Referring Unavailable GIANA, CHERYL Attending Unavailable CNOCHA, BRIAN Attending Unavailable MICHAELRENEE Referring Unavailable MICHAELRENEE [...] Comments), Intolerance, GI Upset [facility] (20 sources) Ciprofloxacin; Translations: [ciprofloxacin] Drug Allergy 8 Hives, Urticaria (disorder), Other: See Comments [facility] (20 sources) oxyCODONE; Translations: [oxycodone] Drug Allergy 9 Rash, Itching (finding) [facility] (19 sources) cefdinir; Translations: [cefdinir] Drug Allergy 3 Vomiting (disorder), Other: See Comments, Vomiting, Other (See Comments) [facility] (11 sources) traMADol; Translations: [TRAMADOL] Drug Allergy 3 Mental Status Change, Other (See Comments) [facility] (1 source) Cefuroxime Drug Allergy 2 [facility] [employer] Work Phone: (5 sources) Acetaminophen; Translations: [acetaminophen] Drug Allergy 9 [facility] (2 sources) Acetaminophen / oxyCODONE Drug Allergy 3 [facility] (1 source) Cefuroxime Drug Allergy 2 [facility] (2 sources) Ciprofloxacin Drug Allergy [facility] (1 source) cefdinir Drug Allergy 4 [facility] (1 source) Ciprofloxacin Drug Allergy 4 [facility] (1 source) oxyCODONE Drug Allergy 4 [facility] (1 source) traMADol Drug Allergy 4 [facility] Medications Current Medications Medication Drug [...] Polymyxin-class Antibacterial Start: End: bacitracin-polymyxin b (POLYSPORIN) [id number] UNIT/GM ointment Apply topically 2 times daily. [...] take 1 capsule by mouth twice daily [place] 3 1000 MG CAPS Take 1,000 mg by mouth 2 times daily 0 Active End: 05-12-2021 take 1 capsule by mouth once daily [place]-3 Fatty Acids (FISH OIL OMEGA-3) 1000 MG CAPS Take 1,000 mg by mouth daily 0 05/12/2021 Discontinued docusate sodium 50 mg / sennosides, long-term 8.6 mg oral tablet (2 sources) Start: [...] Start: 09-02-2022 take 2 tablets by mo [facility] once daily Cytomel 5 mcg Tab 10 mcg = 2 tab(s), Oral, Daily, Refills(s) 0 Start Date: 09/02/22 Status: Ordered take 2 tablets by mo [facility] once daily liothyronine (Cytomel) 5 MCG [...] sources) Polyene Antifungal Start: 06-28-2022 nystatin (MYCOSTATIN) 560628 UNIT/GM powder Apply 3 times daily. 60 g 10 06/28/2022 Active nystatin (MYCOST ATIN) 950284 UNIT/GM powder Apply topically 2 times daily as needed 0 Active Kcfds-3x-Knq-Epa-Fish Oil ([place]-3 Fish Oil) 300-1,000 mg Capsule (4 sources) Start: 04-25-2019 Akbhm-9l-Uhr-Epa-Fish Oil ([place]-3 Fish Oil) 300-1,000 mg Capsule Active 2 [...] on above: Take 2 tablets by mo [facility] every 6 hours as needed for [...] by mouth 4 times daily 0 Active Ftvfp-1-PBQ-EPA-Fish Oil 1,000 mg (120 mg-180 mg) cap (8 sources) take 1 capsule by mouth twice daily Bskid-2-GFJ-EPA-Fish Oil 1,000 mg (120 mg-180 mg) cap [...] sources) Long-term current use of anticoagulant; Translations: [[facility] (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] Onset: 09-09-2022 Episodic Other aftercare (1 source) [facility] (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; Translations: [PENITENTIARY CURRNT USE ANTICOAGULANTS] Onset: 11-03-2022 Episodic Other aftercare (1 source) [facility] (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 oral hypoglycemic drugs; Translations: [PENITENTIARY USE ORAL HYPOGLYCEMIC DX] Onset: 11-03-2022 Episodic Other aftercare (1 source) Other [facility] (current) drug therapy; Translations: [OTH PENITENTIARY CURRENT [...] Onset: 08-13-2022 Episodic Other aftercare (1 source) [facility] (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 aspirin; Translations: [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 Office Visiton 08-27-2024 Follow-up visit [id number] McleodHarman 1940 F Date Provider Department Center 08/27/2024 BRIAN FLANNERY [facility] Family History Problem Relation Age of Onset Stroke Mother Coronary artery disease Father Heart attack Father Family Status - Relation Status Age at Mother Father Level of Service:05361 [place] OFFICE/OUTPATIENT ESTABLISHED LOW MDM 20 MIN Normal 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 She was just discharged from [facility] for GI bleed. Eliquis and aspirin [...] Diagnosis Date Abnormal ECG Arrhythmia Atrial fibrillation ([facility]/HCC) CAD (coronary artery disease) Cancer ([facility]/HCC) CHF (congestive heart failure) ([facility]/HCC) Chronic kidney disease COPD (chronic obstructive pulmonary disease) ([facility]/HCC) Diabetes mellitus ([facility]/HCC) GI bleed Heart murmur Hyperlipidemia Hypertension PVD (peripheral vascular disease) ([facility]) PSH: Past Surgical History: Procedure Laterality Date CARDIAC CATHETERIZATION 12/15/2011, 08/23/2010, 12/30/2004, CORONARY STENT PLACEMENT HYSTERECTOMY 03/11/2005 VASCULAR SURGERY SH: Social Determinants of Health Tobacco Use: Medium Risk (06/20/2024) Re[facility], [facility] Patient History Smoking Tobacco Use: Former Smokeless Tobacco Use: Never Passive Exposure: Not on file Alcohol Use: Not on file Financial Resource Strain: Not on file Food Insecurity: Not on file Transportation Needs: Not on file Physical Activity: Not on file Stress: Not on file Social Connections: Not on file Intimate Partner Violence: Unknown (11/02/2023) [place] Safety & Environment Fear of Current or Ex-Partner: Not on file Emotionally Abused: Not on file Physically Abused: Not on file Sexually Abused: Not on file Physically or Sexually Abused: Not on file Depression: Not at risk (02/14/2023) Received from [facility], [facility] PHQ-2 PHQ-2 score: 0 Housing Stability: [...] mouth two times daily. fish oil concentrate ([place]ellville-3) 120-180 mg capsule Take 1,000 mg by [...] mouth in th (more content not included)... [facility] NURSNOTEon 08-12-2024 NURSNOTE RN educated pt [...] off of unit with all of belongings. [facility] 36on 07-18-2024 36 Patient's significan t toya (Sreekanth) called the office to confirm Harman has been taking 100mg of metoprolol once a day. She has 200mg tablets. I advised him - per Dr. Lamb- to make sure she's taking 100mg bid. She will take half tablet bid. Sreekanth verbalized understanding. [facility] Office Visiton 07-17-2024 Follow-up visit [id number] Harman Mcleod 1940 F Date Provider Department Center 07/17/2024 62766-OXDRFCREENE LAMB [facility] Problem Relation Age of Onset Stroke Mother Coronary artery disease Father Heart attack Father Family Status - Relation Status Age at Mother Father Level of Service:93294 [place] OFFICE/OUTPATIENT ESTABLISHED MOD MDM 30 MIN Reason for Visit and Comments: S/P PACEMAKER [Other] - HERE FOR A WOUND CHECK TODAY Atrial Fibrillation [80] - CHADSVASC score of 7 Coronary Artery Disease [187] Hypertension [741186] Edema [[id number]] - LEGS AND FEET ARE SWOLLEN TODAY, PT WANTS TO KNOW IF SHOULD GO BACK ON LASIX DAILY [facility] Orders Onlyon 07-17-2024 Orders Only [id number] Harman Mcleod 1940 F Date Provider Department Center 07/17/2024 JORGE LONG [facility] Family History Problem Relation Age of Onset Stroke Mother Coronary artery disease Father Heart attack Father Family Status - Relation Status Age at Mother Father Normal [facility] HP 07-10-2024 [facility] Electrophysiology Consult Note [place] Cardiology - [facility] Reason for visit: Afib HPI: [...] in A-fib. She was just discharged from [facility] for GI bleed. Eliquis and aspirin [...] on file Intimate Partner Violence: Unknown (11/02/2023) [place] Safety & [place] Fear of Current or [...] mouth two times daily. fish oil concentrate ([place]ell[place]-3) 120-180 mg capsule Take 1,000 mg by [...] tablet 3 spironolac (more content not included)... [facility] NURSNOTEon 07-10-2024 NURSNOTE RN educated pt [...] off of unit with all of belongings. [facility] Office Visiton 07-02-2024 Follow-up visit [id number] Harman Mcleod 1940 Date Provider Department Center 07/02/2024 BRIAN FLANNERY CORI [facility] Family History Problem Relation Age of Onset Stroke Mother Coronary artery disease Father Heart attack Father Family Status - Relation Status Age at Mother Father Level of Service:03709 [place] OFFICE/OUTPATIENT NEW MODERATE MDM 45 MINUTES [facility] Orders Onlyon 07-02-2024 Orders Only [id number] Harman Mcleod 1940 Provider Department Center 07/02/2024 Chiara-WENDY WILL CARD [facility] Family History Problem Relation Age of Onset Stroke Mother Coronary artery disease Father Heart attack Father Family Status - Relation Status Age at Mother Father Normal [facility] Office Visiton 06-12-2024 Follow-up visit [id number] Harman Mcleod 1940 Date Provider Department Center 06/12/2024 LonnyMARCILIZETHJOSE MARIA SMITH [facility] Family History Problem Relation Age of Onset Stroke Mother Coronary artery disease Father Heart attack Father Family Status - Relation Status Age at Mother Father Level of Service:19207 [place] OFFICE/OUTPATIENT ESTABLISHED HIGH MDM 40 MIN Normal [facility] 36on 06-10-2024 36 Pt informed hoys office updated Normal [facility] 37on 05-27-2024 37 Increase Zocor/simvastatin to 40 mg daily- from 20 mg for better cholesterol control Have blood drawn in 2-3 months for liver function and lipid levels- you must be fasting to have drawn Normal [facility] Office Visiton 05-27-2024 Follow-up visit [id number] Harman Mcleod 1940 Date Provider Department Center 05/27/2024 CHERYL MEYER [facility] Family History Problem Relation Age of Onset Stroke Mother Coronary artery disease Father Heart attack Father Family Status - Relation Status Age at Mother Father Level of Service:05294 [place] OFFICE/OUTPATIENT ESTABLISHED LOW MDM 20 MIN Normal [facility] US ankle/arm indiceson 04-09 US ankle/arm indices [facility] [place] [address] Ultrasound Report Signed Patient: Hraman Mcleod MR#: [id number] : 1940 Acct:[id number] Age/Sex: 83 / F ADM Date: 04/09/24 Loc: Room: Type: [facility] Attending Dr: Janell Mathews APRN Ordering Provider: [...] Christiano Gonzales MD04/09/2024 2:02 PM Dictation Location: [place] [address] Tech: Kaleigh Ortega Transcribed By: FRANCIA 04/09/24 1402 Dictated By: Christiano Gonzales MD 04/09/24 1401 Signed By: 04/09/24 1402 Normal [facility] US venous duplex [facility] US venous duplex [facility] [place] [address] Ultrasound Report Signed Patient: Harman Mcleod MR#: [id number] : 1940 Acct:[id number] Age/Sex: 83 / F ADM Date: 04/09/24 Loc: Room: Type: [facility] Attending Dr: Janell Mathews APRN Ordering Provider: [...] Christiano Gonzales MD04/09/2024 2:01 PM Dictation Location: [place] [address] Tech: Francesca Estrada Transcribed By: FRANCIA 04/09/24 1401 Dictated By: Christiano Gonzales MD 04/09/24 1359 Signed By: 04/09/24 1401 Normal [facility] Consultation Noteon 06-21-20 Consultation Note [id number] Normal [facility] CBC W Auto Differential pane l (Bld)on 06-20-2023 Basophils (Bld) [#/Vol] 0.03 10*3/uL Normal <0.11 [facility] Comment on above: Order Comment: Speci men Type: BLOOD SPECIMENOrdering Facility: [facility] Address: [address] [place] [address] Performed By: #### 5 7021-8 ####[facility] [id number] [place] [address] Basophils/100 WBC (Bld) 0.3 % Normal [facility] Comment on above: Order Comment: Speci men Type: BLOOD SPECIMENOrdering Facility: [facility] Address: [address] [place] [address] Performed By: #### 5 7021-8 ####[facility] [id number] [place] [address] Differential cell count method Nom (Bld) Auto Normal [facility] Comment on above: Order Comment: Speci men Type: BLOOD SPECIMENOrdering Facility: [facility] Address: [address] [place] [address] Performed By: #### 5 7021-8 ####[facility] [id number] [place] [address] Eosinophils (Bld) [#/Vol] 10*3/uL Normal <0.46 [facility] Comment on above: Order Comment: Speci men Type: BLOOD SPECIMENOrdering Facility: [facility] Address: [address] [place] [address] Performed By: #### 5 7021-8 ####[facility] [id number] [place] [address] Eosinophils/100 WBC (Bld) 0.2 % Normal [facility] Comment on above: Order Comment: Speci men Type: BLOOD SPECIMENOrdering Facility: [facility] Address: [address] [place] [address] Performed By: #### 5 7021-8 ####[facility] [id number] [place] [address] Erythrocyte distribution width (RBC) [Ratio] 14.4 % Normal 11.5-15.0 [facility] Comment on above: Order Comment: Speci men Type: BLOOD SPECIMENOrdering Facility: [facility] Address: [address] [place] [address] Performed By: #### 5 7021-8 ####[facility] [id number] [place] [address] Hematocrit (Bld) [Volume fraction] 34.9 % Low 36.0-46.0 [facility] Comment on above: Order Comment: Speci men Type: BLOOD SPECIMENOrdering Facility: [facility] Address: [address] [place] [address] Performed By: #### 5 7021-8 ####[facility] [id number] [place] [address] Hemoglobin (Bld) [Mass/Vol] 10.9 g/dL Low 11.5-15.5 [facility] Comment on above: Order Comment: Speci men Type: BLOOD SPECIMENOrdering Facility: [facility] Address: [address] [place] [address] Performed By: #### 5 7021-8 ####[facility] [id number] [place] [address] Immature granulocytes (Bld) [#/Vol] 0.11 10*3/uL High <0.10 [facility] Comment on above: Order Comment: Speci men Type: BLOOD SPECIMENOrdering Facility: [facility] Address: [address] [place] [address] Performed By: #### 5 7021-8 ####[facility] [id number] [place] [address] Immature granulocytes/100 WBC (Bld) 1.1 % Normal [facility] Comment on above: Order Comment: Speci men Type: BLOOD SPECIMENOrdering Facility: [facility] Address: [address] [place] [address] Performed By: #### 5 7021-8 ####[facility] [id number] [place] [address] Lymphocytes (Bld) [#/Vol] 1.97 10*3/uL Normal 1.00-4.00 [facility] Comment on above: Order Comment: Speci men Type: BLOOD SPECIMENOrdering Facility: [facility] Address: [address] [place] [address] Performed By: #### 5 7021-8 ####[facility] [id number] [place] [address] Lymphocytes/100 WBC (Bld) 19.3 % Normal [facility] Comment on above: Order Comment: Speci men Type: BLOOD SPECIMENOrdering Facility: [facility] Address: [address] [place] [address] Performed By: #### 5 7021-8 ####[facility] [id number] [place] [address] MCH (RBC) [Entitic mass] 29.9 pg Normal 26.0-34.0 [facility] Comment on above: Order Comment: Speci men Type: BLOOD SPECIMENOrdering Facility: [facility] Address: [address] [place] [address] Performed By: #### 5 7021-8 ####[facility] [id number] [place] [address] MCHC (RBC) [Mass/Vol] 31.2 g/dL Normal 30.5-36.0 [facility] Comment on above: Order Comment: Speci men Type: BLOOD SPECIMENOrdering Facility: [facility] Address: [address] [place] [address] Performed By: #### 5 7021-8 ####[facility] [id number] [place] [address] MCV (RBC) [Entitic vol] 95.6 fL Normal 80.0-100.0 [facility] Comment on above: Order Comment: Speci men Type: BLOOD SPECIMENOrdering Facility: [facility] Address: [address] [place] [address] Performed By: #### 5 7021-8 ####[facility] [id number] [place] [address] Monocytes (Bld) [#/Vol] 0.49 10*3/uL Normal <0.87 [facility] Comment on above: Order Comment: Speci men Type: BLOOD SPECIMENOrdering Facility: [facility] Address: [address] [place] [address] Performed By: #### 5 7021-8 ####[facility] [id number] [place] [address] Monocytes/100 WBC (Bld) 4.8 % Normal [facility] Comment on above: Order Comment: Speci men Type: BLOOD SPECIMENOrdering Facility: [facility] Address: [address] [place] [address] Performed By: #### 5 7021-8 ####[facility] [id number] [place] [address] Neutrophils (Bld) [#/Vol] 7.59 10*3/uL High 1.45-7.50 [facility] Comment on above: Order Comment: Speci men Type: BLOOD SPECIMENOrdering Facility: [facility] Address: [address] [place] [address] Performed By: #### 5 7021-8 ####[facility] [id number] [place] [address] Neutrophils/100 WBC (Bld) 74.3 % Normal [facility] Comment on above: Order Comment: Speci men Type: BLOOD SPECIMENOrdering Facility: [facility] Address: [address] [place] [address] Performed By: #### 5 7021-8 ####[facility] [id number] [place] [address] Nucleated RBC (Bld) [#/Vol] 10*3/uL Normal <0.01 [facility] Comment on above: Order Comment: Speci men Type: BLOOD SPECIMENOrdering Facility: [facility] Address: [address] [place] [address] Performed By: #### 5 7021-8 ####[facility] [id number] [place] [address] Nucleated RBC/100 WBC (Bld) [Ratio] 0.0 /100 WBC Normal [facility] Comment on above: Order Comment: Speci men Type: BLOOD SPECIMENOrdering Facility: [facility] Address: [address] [place] [address] Performed By: #### 5 7021-8 ####[facility] [id number] [place] [address] Platelet mean volume (Bld) [Entitic vol] 9.3 fL Normal 9.0-12.7 [facility] Comment on above: Order Comment: Speci men Type: BLOOD SPECIMENOrdering Facility: [facility] Address: [address] [place] [address] Performed By: #### 5 7021-8 ####[facility] [id number] [place] [address] Platelets (Bld) [#/Vol] 275 10*3/uL Normal 150-400 [facility] Comment on above: Order Comment: Speci men Type: BLOOD SPECIMENOrdering Facility: [facility] Address: [place] [address] Performed By: #### 5 7021-8 ####[facility] LABIA [id number] [place] [address] RBC (Bld) [#/Vol] 3.65 10*6/uL Low 3.90-5.20 [facility] Comment on above: Order Comment: Speci men Type: BLOOD SPECIMENOrdering Facility: [facility] Address: [place] [address] Performed By: #### 5 7021-8 ####[facility] LABIA [id number] [place] [address] WBC (Bld) [#/Vol] 10.21 10*3/uL Normal 3.70-11.00 [facility] Comment on above: Order Comment: Speci men Type: BLOOD SPECIMENOrdering Facility: [facility] Address: [address] [place], [place] [address] Performed By: #### 5 7021-8 ####[facility] [id number] [place] [address] CNOVSPon 06-20-2023 OVS Visit (SP) Office (HEMASA) HARMAN MCLEOD ([id number]) 1940 F Date Time Provider Department 06/20/23 2:30 PM WINNIE GUZMÁN During your visit today, we recorded the following information about you: Temperature Pulse Respiration Blood pressure 97.4 degrees 72/minute 16/minute 138/55 Weight Height 84.6 kg 1.549 m Winnie Guzmán PA-C 06/20/2023 3:58 PM Signed PATIENT NAME: Harman Mcleod CLINIC NO.: [id number] ATTENDING PHYSICIAN: Wallace Stone MD DATE OF [...] Negative LVI, 2 SNL negative, ER and WI >95% positive, Her2 IHC 1+ Treatment History: [...] 06/20/2023 1.77 (more content not included)... Normal [facility] Comprehensive metabolic 2000 panelon 06-20-2023 Albumin [Mass/Vol] 4.0 g/dL Normal 3.9-4.9 [facility] Comment on above: Order Comment: Speci men Type: BLOOD SPECIMENOrdering Facility: [facility] Address: [address] [place] [address] Performed By: #### 2 4323-8 ####[facility] [id number] [place] [address] ALP [Catalytic activity/Vol] 72 U/L Normal 34-123 [facility] Comment on above: Order Comment: Speci men Type: BLOOD SPECIMENOrdering Facility: [facility] Address: [address] [place] [address] Performed By: #### 2 4323-8 ####[facility] [id number] [place] [address] ALT [Catalytic activity/Vol] 17 U/L Normal 7-38 [facility] Comment on above: Order Comment: Speci men Type: BLOOD SPECIMENOrdering Facility: [facility] Address: [address] [place] [address] Performed By: #### 2 4323-8 ####[facility] [id number] [place] [address] Anion gap [Moles/Vol] 9 mmol/L Normal 9-18 [facility] Comment on above: Order Comment: Speci men Type: BLOOD SPECIMENOrdering Facility: [facility] Address: [address] [place] [address] Performed By: #### 2 4323-8 ####[facility] [id number] [place] [address] AST [Catalytic activity/Vol] 11 U/L Low 13-35 [facility] Comment on above: Order Comment: Speci men Type: BLOOD SPECIMENOrdering Facility: [facility] Address: [address] [place] [address] Performed By: #### 2 4323-8 ####[facility] [id number] [place] [address] Bilirubin [Mass/Vol] 0.2 mg/dL Normal 0.2-1.3 [facility] Comment on above: Order Comment: Speci men Type: BLOOD SPECIMENOrdering Facility: [facility] Address: [address] [place] [address] Performed By: #### 2 4323-8 ####[facility] [id number] [place] [address] Calcium [Mass/Vol] 10.1 mg/dL Normal 8.5-10.2 [facility] Comment on above: Order Comment: Speci men Type: BLOOD SPECIMENOrdering Facility: [facility] Address: [address] [place] [address] Performed By: #### 2 4323-8 ####[facility] [id number] [place] [address] Chloride [Moles/Vol] 103 mmol/L Normal 97-105 [facility] Comment on above: Order Comment: Speci men Type: BLOOD SPECIMENOrdering Facility: [facility] Address: [address] [place] [address] Performed By: #### 2 4323-8 ####[facility] [id number] [place] [address] CO2 [Moles/Vol] 30 mmol/L Normal 22-30 [facility] Comment on above: Order Comment: Speci men Type: BLOOD SPECIMENOrdering Facility: [facility] Address: [address] [place] [address] Performed By: #### 2 4323-8 ####[facility] [id number] [place] [address] Creatinine [Mass/Vol] 1.77 mg/dL High 0.58-0.96 [facility] Comment on above: Order Comment: Dimple de santiago Type: BLOOD SPECIMENOrdering Facility: [facility] Address: [address] [place] [address] Performed By: #### 2 4323-8 ####[facility] [id number] [place] [address] Creatinine and Glomerular filtration rate.predicted panel (S/P/Bld) 29 mL/min/1.73m??? Low >=60 [facility] Comment on above: Order Comment: Dimple men Type: BLOOD SPECIMENOrdering Facility: [facility] Address: [address] [place] [address] Result Comment: Ramila mated Glomerular Filtration Rate [...] actual GFR. Performed By: #### 2 4323-8 ####[facility] [id number] [place] [address] Glucose [Mass/Vol] 273 mg/dL High 74-99 [facility] Comment on above: Order Comment: Dimple anyi Type: BLOOD SPECIMENOrdering Facility: [facility] Address: [address] [place] [address] Result Comment: The [place] Diabetes Association (ADA) provides guidance for cutoff [...] Standards of Medical Care in Diabetes 2016, [place] Diabetes Association. Diabetes Care. 2016.39(Suppl 1). Performed By: #### 2 4323-8 ####[facility] [id number] [place] [address] Potassium [Moles/Vol] 5.1 mmol/L Normal 3.7-5.1 [facility] Comment on above: Order Comment: Speci men Type: BLOOD SPECIMENOrdering Facility: [facility] Address: [address] [place] [address] Performed By: #### 2 4323-8 ####[facility] [id number] [place] [address] Protein [Mass/Vol] 6.4 g/dL Normal 6.3-8.0 [facility] Comment on above: Order Comment: Speci men Type: BLOOD SPECIMENOrdering Facility: [facility] Address: [address] [place] [address] Performed By: #### 2 4323-8 ####[facility] [id number] [place] [address] Sodium [Moles/Vol] 142 mmol/L Normal 136-144 [facility] Comment on above: Order Comment: Speci men Type: BLOOD SPECIMENOrdering Facility: [facility] Address: [address] [place] [address] Performed By: #### 2 4323-8 ####[facility] [id number] [place] [address] Urea nitrogen [Mass/Vol] 40 mg/dL High 7-21 [facility] Comment on above: Order Comment: Speci men Type: BLOOD SPECIMENOrdering Facility: [facility] Address: [address] [place] [address] Performed By: #### 2 4323-8 ####[facility] [id number] [place] [address] Vaginitis DNA Probeon 2022 Manjula Negative Normal NEG [facility] Comment on above: Result Comment: for Manjula sp. Method of testing is a DNA probe intended for detection and identification of Manjula species, Gardnerella vaginalis, and Trichomonas vaginalis nucleic acid in vaginal fluid specimens from patients with symptoms of vaginitis/vaginosis. Performed By: #### V AGP #### [facility] [place] [address] Crisis Specialist: Fidel Hylton MD Gardnerella Negative Normal NEG [facility] Comment on above: Result Comment: for Gardnerella vaginalis Performed By: #### V AGP #### [facility] [employer] [address] [place] [address] [phone] Crisis Specialist: Fidel Hylton MD Trichomonas Negative Normal NEG [facility] Comment on above: Result Comment: for Trichomonas Vaginalis Performed By: #### V AGP #### [facility] [employer] [address] [place] [phone] Crisis Specialist: Fidel Hylton MD Source .VAGINAL SWAB Normal [facility] Comment on above: Performed By: #### V AGP #### [facility] [address] [place] [address] [phone] Crisis Specialist: Fidel Hylton MD OPERATIVE REPORTon OPERATIVE REPORT [address] [address] OPERATIVE REPORT PATIENT NAME: HARMAN MCLEOD : 1940 MED REC NO: [id number] ROOM: ACCOUNT NO: [id number] ADMIT DATE: 03/06/2023 PROVIDER: Emma Garza MD DATE OF PROCEDURE: 03/06/2023 PREOPERATIVE DIAGNOSIS: Recurrent vaginal dysplasia. POSTOPERATIVE DIAGNOSIS: Recurrent vaginal dysplasia. OPERATION PERFORMED: Examination under anesthesia, carbon dioxide laser vaporization of vaginal dysplasia. COMPLICATIONS: None. BLOOD LOSS: Minimal. SURGEON: Emma Garza MD TEASELER: Mauri (resident). DISPOSITION: The patient to recovery room stable. SPECIMENS: No specimen sent to Pathology. OPERATIVE FINDINGS: The patient had a small 1-2 cm area of jfmfnxkd-gq-ltemgd dysplasia along the anterior vagina from 12 [...] entire procedure. EMMA GARZA MD CL/[id number]_01 Doc#: [id number] CC: Normal [facility] Consultation Noteon 02-20-20 Consultation Note [id number] 0CD:127 Normal [facility] CBC W Auto Differential pane l (Bld)on 02-14-2023 Basophils (Bld) [#/Vol] 0.04 10*3/uL Normal <0.11 [facility] Comment on above: Order Comment: Speci men Type: BLOOD SPECIMENOrdering Facility: [facility] Address: [address] [address] Performed By: #### 5 7021-8 ####[facility] [id number] [place] [address] Basophils/100 WBC (Bld) 0.4 % Normal [facility] Comment on above: Order Comment: Speci men Type: BLOOD SPECIMENOrdering Facility: [facility] Address: [address] [place], [place] [phone] Performed By: #### 5 7021-8 ####[facility] [id number] [place] [address] Differential cell count method Nom (Bld) Auto Normal [facility] Comment on above: Order Comment: Speci men Type: BLOOD SPECIMENOrdering Facility: [facility] Address: [address] [place] [address] Performed By: #### 5 7021-8 ####[facility] [id number] [place] [address] Eosinophils (Bld) [#/Vol] 0.20 10*3/uL Normal <0.46 [facility] Comment on above: Order Comment: Speci men Type: BLOOD SPECIMENOrdering Facility: [facility] Address: [address] [place] [address] Performed By: #### 5 7021-8 ####[facility] [id number] [place] [address] Eosinophils/100 WBC (Bld) 1.9 % Normal [facility] Comment on above: Order Comment: Speci men Type: BLOOD SPECIMENOrdering Facility: [facility] Address: [address] [place] [address] Performed By: #### 5 7021-8 ####[facility] [id number] [place] [address] Erythrocyte distribution width (RBC) [Ratio] 14.1 % Normal 11.5-15.0 [facility] Comment on above: Order Comment: Speci men Type: BLOOD SPECIMENOrdering Facility: [facility] Address: [address] [place] [address] Performed By: #### 5 7021-8 ####[facility] [id number] [place] [address] Hematocrit (Bld) [Volume fraction] 38.4 % Normal 36.0-46.0 [facility] Comment on above: Order Comment: Speci men Type: BLOOD SPECIMENOrdering Facility: [facility] Address: [address] [place] [address] Performed By: #### 5 7021-8 ####[facility] [id number] [place] [address] Hemoglobin (Bld) [Mass/Vol] 12.2 g/dL Normal 11.5-15.5 [facility] Comment on above: Order Comment: Speci men Type: BLOOD SPECIMENOrdering Facility: [facility] Address: [address] [place] [address] Performed By: #### 5 7021-8 ####[facility] [id number] [place] [address] Immature granulocytes (Bld) [#/Vol] 0.06 10*3/uL Normal <0.10 [facility] Comment on above: Order Comment: Speci men Type: BLOOD SPECIMENOrdering Facility: [facility] Address: [address] [place] [address] Performed By: #### 5 7021-8 ####[facility] [id number] [place] [address] Immature granulocytes/100 WBC (Bld) 0.6 % Normal [facility] Comment on above: Order Comment: Speci men Type: BLOOD SPECIMENOrdering Facility: [facility] Address: [address] [place] [address] Performed By: #### 5 7021-8 ####[facility] [id number] [place] [address] Lymphocytes (Bld) [#/Vol] 2.56 10*3/uL Normal 1.00-4.00 [facility] Comment on above: Order Comment: Speci men Type: BLOOD SPECIMENOrdering Facility: [facility] Address: [address] [place] [address] Performed By: #### 5 7021-8 ####[facility] [id number] [place] [address] Lymphocytes/100 WBC (Bld) 24.6 % Normal [facility] Comment on above: Order Comment: Speci men Type: BLOOD SPECIMENOrdering Facility: [facility] Address: [address] [place] [address] Performed By: #### 5 7021-8 ####[facility] [id number] [place] [address] MCH (RBC) [Entitic mass] 30.0 pg Normal 26.0-34.0 [facility] Comment on above: Order Comment: Speci men Type: BLOOD SPECIMENOrdering Facility: [facility] Address: [address] [place] [address] Performed By: #### 5 7021-8 ####[facility] [id number] [place] [address] MCHC (RBC) [Mass/Vol] 31.8 g/dL Normal 30.5-36.0 [facility] Comment on above: Order Comment: Speci men Type: BLOOD SPECIMENOrdering Facility: [facility] Address: [address] [address] Performed By: #### 5 7021-8 ####[facility] [id number] [place] [address] MCV (RBC) [Entitic vol] 94.3 fL Normal 80.0-100.0 [facility] Comment on above: Order Comment: Speci men Type: BLOOD SPECIMENOrdering Facility: [facility] Address: [address] [address] Performed By: #### 5 7021-8 ####[facility] [id number] [place] [address] Monocytes (Bld) [#/Vol] 0.86 10*3/uL Normal <0.87 [facility] Comment on above: Order Comment: Speci men Type: BLOOD SPECIMENOrdering Facility: [facility] Address: [address] [place] [address] Performed By: #### 5 7021-8 ####[facility] LABCLIA [id number] [place] [address] Monocytes/100 WBC (Bld) 8.3 % Normal [facility] Comment on above: Order Comment: Speci men Type: BLOOD SPECIMENOrdering Facility: [facility] Address: [address] [place] [address] Performed By: #### 5 7021-8 ####[facility] [id number] [place] [address] Neutrophils (Bld) [#/Vol] 6.69 10*3/uL Normal 1.45-7.50 [facility] Comment on above: Order Comment: Speci men Type: BLOOD SPECIMENOrdering Facility: [facility] Address: [address] [place] [address] Performed By: #### 5 7021-8 ####[facility] [id number] [place] [address] Neutrophils/100 WBC (Bld) 64.2 % Normal [facility] Comment on above: Order Comment: Speci men Type: BLOOD SPECIMENOrdering Facility: [facility] Address: [address] [place] [address] Performed By: #### 5 7021-8 ####[facility] [id number] [place] [address] Nucleated RBC (Bld) [#/Vol] 10*3/uL Normal <0.01 [facility] Comment on above: Order Comment: Speci men Type: BLOOD SPECIMENOrdering Facility: [facility] Address: [address] [place] [address] Performed By: #### 5 7021-8 ####[facility] [id number] [place] [address] Nucleated RBC/100 WBC (Bld) [Ratio] 0.0 /100 WBC Normal [facility] Comment on above: Order Comment: Speci men Type: BLOOD SPECIMENOrdering Facility: [facility] Address: [address] [address] Performed By: #### 5 7021-8 ####[facility] [id number] [place] [address] Platelet mean volume (Bld) [Entitic vol] 9.6 fL Normal 9.0-12.7 [facility] Comment on above: Order Comment: Speci men Type: BLOOD SPECIMENOrdering Facility: [facility] Address: [address] [place] [address] Performed By: #### 5 7021-8 ####[facility] LABCLIA [id number] [place] [address] Platelets (Bld) [#/Vol] 271 10*3/uL Normal 150-400 [facility] Comment on above: Order Comment: Speci men Type: BLOOD SPECIMENOrdering Facility: [facility] Address: [address] [place] [address] Performed By: #### 5 7021-8 ####[facility] [id number] [place] [address] RBC (Bld) [#/Vol] 4.07 10*6/uL Normal 3.90-5.20 [facility] Comment on above: Order Comment: Speci men Type: BLOOD SPECIMENOrdering Facility: [facility] Address: [address] [address] Performed By: #### 5 7021-8 ####[facility] [id number] [place] [address] WBC (Bld) [#/Vol] 10.41 10*3/uL Normal 3.70-11.00 [facility] Comment on above: Order Comment: Speci men Type: BLOOD SPECIMENOrdering Facility: [facility] Address: [address] [place] [address] Performed By: #### 5 7021-8 ####[facility] LABIA [id number] [place] [address] CNOVSPon 02-14-2023 CNOVSP Visit (SP) Office (HEMASA) HARMAN MCLEOD ([id number]) 1940 F Date Time Provider Department 02/14/23 10:30 AM WALLACE STONE During your visit today, we recorded the following information about you: Temperature Pulse Respiration Blood pressure 97.4 degrees 102/minute 16/minute 151/90 Weight Height 84.5 kg 1.549 m Wallace Stone MD 02/14/2023 10:49 AM Signed PATIENT NAME: Harman Mcleod CLINIC NO.: [id number] ATTENDING PHYSICIAN: Wallace Stone MD DATE OF [...] Negative LVI, 2 SNL negative, ER and WI >95% positive, Her2 IHC 1+ Treatment History: [...] : Deferre (more content not included)... Normal [facility] CNPNon 02-14-2023 CNPN Telephone (NCCAP) HARMAN MCLEOD ([id number]) 1940 F Date Time Provider Department 02/14/23 [facility] STONE [facility] During your visit today, we recorded the following information about you: Angelica Bhakta Sec 02/14/2023 11:00 AM Signed Please ref to [facility] for Consult dx eczema They will call the patient to schedule after review of records. Janeth, Please fax records Dudley, Please check on this appt. Kira Ko [facility] 02/14/2023 1:14 PM Signed Records faxed to [facility]. Adriana Pereira [facility] 02/22/2023 8:35 AM Signed Called Derm [...] daily at bedtime. Cut in half - Gpqbf-3-CGS-EPA-Fish Oil 1,000 mg (120 mg-180 mg) cap Take 2 g by mouth twice daily. - isosorbide mononitrate ER (IMDUR) 60 mg 24 hr tablet Take 60 mg by mouth twice daily. Problem List As Of Date 02/14/2023 Noted Resolved Hypertension [I10] DM type 2 (diabetes mellitus, type 2) ([facility]) [E1* Essential hypertension [I10] 01/16/2017 Type 2 diabetes mellitus without complication, *01/16/2017 Hypothyroidism [E03.9] 01/16/2017 Dyslipidemia [E78.5] 01/16/2017 Atherosclerosis of galena coronary artery of na*01/16/2017 S/P coronary artery stent placement [Z95.5] 01/16/2017 Moderate smoker (20 or less per day) [F17.210] 01/16/2017 PAD (peripheral artery disease) ([facility]) [I73.9] 01/16/2017 Vaginal lesion [N89.8] 01/20/2017 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 Address: [address] [place] [address] Performed By: #### 2 4323-8 ####[facility] [id number] [place] [address] ALP [Catalytic activity/Vol] 106 U/L Normal 34-123 [facility] Comment on above: Order Comment: Speci men Type: BLOOD SPECIMENOrdering Facility: [facility] Address: [address] [address] Performed By: #### 2 4323-8 ####[facility] [id number] [place] [address] ALT [Catalytic activity/Vol] 14 U/L Normal 7-38 [facility] Comment on above: Order Comment: Speci men Type: BLOOD SPECIMENOrdering Facility: [facility] Address: [address] [address] Performed By: #### 2 4323-8 ####[facility] [id number] [place] [address] Anion gap [Moles/Vol] 11 mmol/L Normal 9-18 [facility] Comment on above: Order Comment: Speci men Type: BLOOD SPECIMENOrdering Facility: [facility] Address: [address] [address] Performed By: #### 2 4323-8 ####[facility] [id number] [place] [address] AST [Catalytic activity/Vol] 11 U/L Low 13-35 [facility] Comment on above: Order Comment: Speci men Type: BLOOD SPECIMENOrdering Facility: [facility] Address: [address] [place] [address] Performed By: #### 2 4323-8 ####[facility] [id number] [place] [address] Bilirubin [Mass/Vol] 0.3 mg/dL Normal 0.2-1.3 [facility] Comment on above: Order Comment: Speci men Type: BLOOD SPECIMENOrdering Facility: [facility] Address: [address] [place] [address] Performed By: #### 2 4323-8 ####[facility] [id number] [place] [address] Calcium [Mass/Vol] 10.2 mg/dL Normal 8.5-10.2 [facility] Comment on above: Order Comment: Speci men Type: BLOOD SPECIMENOrdering Facility: [facility] Address: [address] [place] [address] Performed By: #### 2 4323-8 ####[facility] [id number] [place] [address] Chloride [Moles/Vol] 98 mmol/L Normal 97-105 [facility] Comment on above: Order Comment: Speci men Type: BLOOD SPECIMENOrdering Facility: [facility] Address: [address] [place] [address] Performed By: #### 2 4323-8 ####[facility] [id number] [place] [address] CO2 [Moles/Vol] 31 mmol/L High 22-30 [facility] Comment on above: Order Comment: Speci men Type: BLOOD SPECIMENOrdering Facility: [facility] Address: [address] [id number] Performed By: #### 2 4323-8 ####[facility] [id number] [place] [address] Creatinine [Mass/Vol] 1.25 mg/dL High 0.58-0.96 [facility] Comment on above: Order Comment: Speci men Type: BLOOD SPECIMENOrdering Facility: [facility] Address: [address] [address] Performed By: #### 2 4323-8 ####[facility] [id number] [place] [address] ESTIMATED GLOMERULAR FILTRATION RATE 44 mL/min/1.73m??? Low >=60 [facility] Comment on above: Order Comment: Speci men Type: BLOOD SPECIMENOrdering Facility: [facility] Address: [address] [place] [address] Result Comment: Ramila mated Glomerular Filtration Rate [...] actual GFR. Performed By: #### 2 4323-8 ####[facility] [id number] [place] [address] Glucose [Mass/Vol] 285 mg/dL High 74-99 [facility] Comment on above: Order Comment: Speci men Type: BLOOD SPECIMENOrdering Facility: [facility] Address: [address] [address] Result Comment: The [place] Diabetes Association (ADA) provides guidance for cutoff [...] Standards of Medical Care in Diabetes 2016, [place] [employer]. Diabetes Care. 2016.39(Suppl 1). Performed By: #### 2 4323-8 ####[facility] [id number] [place] [address] Potassium [Moles/Vol] 3.7 mmol/L Normal 3.7-5.1 [facility] Comment on above: Order Comment: Speci men Type: BLOOD SPECIMENOrdering Facility: [facility] Address: [address] [place] [address] Performed By: #### 2 4323-8 ####[facility] [id number] [place] [address] Protein [Mass/Vol] 7.3 g/dL Normal 6.3-8.0 [facility] Comment on above: Order Comment: Speci men Type: BLOOD SPECIMENOrdering Facility: [facility] Address: [address] [place] [address] Performed By: #### 2 4323-8 ####[facility] [id number] [place] [address] Sodium [Moles/Vol] 140 mmol/L Normal 136-144 [facility] Comment on above: Order Comment: Speci men Type: BLOOD SPECIMENOrdering Facility: [facility] Address: [address] [address] Performed By: #### 2 4323-8 ####[facility] [id number] [place] [address] Urea nitrogen [Mass/Vol] 33 mg/dL High 7-21 [facility] Comment on above: Order Comment: Speci men Type: BLOOD SPECIMENOrdering Facility: [facility] Address: [address] [place], [place] [address] Performed By: #### 2 4323-8 ####[facility] LABCLIA [id number] [place] [address] Consultation Noteon 02-15-20 23 Consultation Note [id number]#1.0 0CD:127 Normal [facility] Comment on above: Other Comment: TRACEY RUTH CRR CULTURE URINEon 01-19-2023 CULTURE URINE Culture Observations : VERY LIGHT GROWTH OF MIXED GENITAL SAGE. NO POTENTIAL PATHOGENS SEEN. Normal [facility] Comment on above: Performed By: #### U RCX ####[facility] [id number] [address]Dr. Omid Bowden UA RANDOM W/MICROSCOPICon BACTERIA TRACE Abnormal NONE SEEN [facility] Comment on above: Performed By: #### H GB #### [facility] [address] [place] [address] Dr. Omid Bowden Bilirubin Ql (U) Negative Normal NEGATIVE [facility] Comment on above: Performed By: #### H GB #### [facility] [address] [place] [address] Dr. Omid Bowden CAST NONE SEEN Normal NONE SEEN [facility] Comment on above: Performed By: #### H GB #### [facility] [address] [place] [address] Dr. Omid Bowden Clarity (U) CLEAR Normal CLEAR [facility] Comment on above: Performed By: #### H GB #### [facility] [address] [place] [address] Dr. Omid Bowden Color (U) LT. YELLOW Normal YELLOW [facility] Comment on above: Performed By: #### H GB #### [facility] [address] [place] [address] Dr. Omid Bowden Crystals LM Nom (Urine sed) NONE SEEN Normal NONE SEEN [facility] Comment on above: Performed By: #### H GB #### [facility] [address] [place] [address] Dr. Omid Bowden Epithelial cells LM Ql (Urine sed) RARE Normal NONE SEEN /RARE [facility] Comment on above: Performed By: #### H GB #### [facility] [address] [place] [address] Dr. Omid Bowden Glucose Ql (U) Negative Normal NEGATIVE [facility] Comment on above: Performed By: #### H GB #### [facility] [address] [address] [address] Omid Bowden Hemoglobin Ql (U) Negative Normal NEGATIVE [facility] Comment on above: Performed By: #### H GB #### [facility] [address] [place] [address] Dr. Omid Bowden Ketones Ql (U) Negative Normal NEGATIVE [facility] Comment on above: Performed By: #### H GB #### [facility] [address] [place] [address] Dr. Omid Bowden LEUKOCYTES SMALL Abnormal NEGATIVE [facility] Comment on above: Performed By: #### H GB #### [facility] [address] [place] [address] Dr. Omid Bowden MUCOUS NONE SEEN Normal NONE SEEN [facility] Comment on above: Performed By: #### H GB #### [facility] [address] [place] [address] Dr. Omid Bowden Nitrite Ql (U) Negative Normal NEGATIVE [facility] Comment on above: Performed By: #### H GB #### [facility] [address] [place] [address] Dr. Omid Bowden pH (U) 6.0 [pH] Normal 5-9 [facility] Comment on above: Performed By: #### H GB #### [facility] [address] [place] [address] Dr. Omid Bowden RBC 0-2 Normal 0-2 [facility] Comment on above: Performed By: #### H GB #### [facility] [address] [place] [address] Dr. Omid Bowden SPEC GRAVITY <=1.005 Abnormal 1.005-<=1.0 25 [facility] Comment on above: Performed By: #### H GB #### [facility] [address] [address] [address] Omid Bowden UA PROTEIN Negative Normal NEGATIVE/ TRACE [facility] Comment on above: Performed By: #### H GB #### [facility] [address] [address] [address] Omid Bowden Urobilinogen Qn (U) 0.2 {Jose'U}/dL Normal 0.2 - 1. 0 [facility] Comment on above: Performed By: #### H GB #### [facility] [address] [address] [address] Omid Bowden WBC 0-2 Abnormal NONE SEEN [facility] Comment on above: Performed By: #### H GB #### [facility] [address] [address] [address] Omid Bowden Creatinine [Mass/volume] in Serum or PlasmaOrdered By: Christiano Gonzales on 11-29-2022 Creatinine [Mass/Vol] 1.37 mg/dL 0.60-1.20 [facility] - Chemistry and C hemistry - challengeOrdered By: Christiano Gonzales on 11-29-2022 GFR/1.73 sq M.predicted MDRD (S/P/Bld) [Vol rate/Area] 39.034 mL/min/{1.73_m2} [facility] No Panel InformationOrdered By: Christiano Gonzales on 11-29-2022 Pharmacy Creatinine Clearance (Chem 31.71 [facility] Urea nitrogen [Mass/volume] in Serum or PlasmaOrdered By: Christiano Gonzales on 11-29-2022 Urea nitrogen [Mass/Vol] 35 mg/dL 7-25 [facility] Surgical Pathologyon 023 Surgical Pathology (NOTE) [...] SURGICAL PATHOLOGY CONSULTATION Patient Name: HARMAN MCLEOD [facility] Rec: [id number] Path Number: [id number] [facility] [facility] ANATOMIC PATHOLOGY [address] [place] [phone] Normal [facility] Comment on above: Performed By: #### P PPVS #### [employer] [address] [place] [id number] Crisis Specialist: Fidel Hylton MD Ambulatory Visit Summaryon 0 [...] and diastolic (congestive) heart failure Atherosclerosis of galena artery of extremity BMI 36.0-36.9,adult Brain stem [...] Stage 2 chronic kidney disease Normal [facility] Surgery [...] CARDONA, DANIEL Jose Only if needed [email or web address] [address]- Additional Instructions: Problem List/Past Medical History Ongoing 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 Normal [facility] Comment on above: Result Comment: Elec tronically Signed By: CHELSI CARDONA, Iliana Alvarez\Date and Time Signed: 11/22/22 15:17 EDT Covid-19 PCR (CVDTB)on SARS-CoV-2 (COVID-19) RNA MARII+probe Ql (Unsp spec) Not detected Normal NOT DETECTED [facility] Comment on above: Result Comment: When [...] for this test is supported by the Guest Relations Representative of Health and Human Service's declaration [...] used). Performed By: #### H GB #### [facility] [address] [address] [address] Omid Bowden INFLUENZA A AND B AGon 11-16 [facility] SEE BELOW Normal [facility] Comment on above: Result Comment: Nega tive for Flu A protein angiten. Infection due to Flu A cannot be ruled out. Flu A angiten in the sample may be below the detection limit of the test. Performed By: #### I NFLUAB ####[facility] [address] [address]DrMedardo Bowden INFLUBNEGH SEE BELOW Normal [facility] Comment on above: Result Comment: Nega tive for Flu B protein antigen. Infection due to Flu B cannot be ruled out. Flu B antigen in the sample may be below the detection limit of the test. Performed By: #### I NFLUAB ####[facility] [address] [address]DrMedardo Bowden INFLUENZA A AG Negative Normal NEGATIVE SEE COMMENT [facility] Comment on above: Performed By: #### I NFLUAB ####[facility] [address] [place], [place] [address]DrMedardo Bowden INFLUENZA B AG Negative Normal NEGATIVE SEE COMMENT [facility] Comment on above: Performed By: #### I NFLUAB ####[facility] [address] [place], [place] [address]Dr. Omid Bowden CNOVSPon 11-09-2022 CNOVSP Visit (SP) Office ([facility]) HARMAN MCLEOD ([id number]) 1940 F Date Time Provider Department 11/09/22 2:00 PM WALLACE STONE During your visit today, we recorded the following information about you: Temperature Pulse Respiration Blood pressure 97.1 degrees 66/minute 18/minute 142/72 Weight Height 84.7 kg 1.549 m Wallace Stone MD 11/09/2022 2:24 PM Signed PATIENT NAME: Harman Mcleod CLINIC NO.: [id number] ATTENDING PHYSICIAN: Wallace Stone MD DATE OF SERVICE: November 09, [address] Banks referring provider defined for this encounter. here is an update on a follow up visit on female Harman Mcleod at the clinic 11/09/2022 Diagnosis: T1b, N0, M0- R breast, Tumor 9 mm, Grade 2, Margins negative, Negative LVI, 2 SNL negative, ER and WI >95% positive, Her2 IHC 1+ Treatment History: [...] LABS: Gluc (more content not included)... Normal [facility] CNPNon 11-09-2022 CNPN Telephone (NCCAP) HARMAN MCLEOD ([id number]) 1940 F Date Time Provider Department 11/09/22 WALLACE STONE [facility] During your visit today, we recorded the following information about you: Carlos Brooks 11/09/2022 2:45 PM Signed Vascular Consult [facility] [place] Previous patient of Dr. Mendez 3 years or more. Janeth/Dudley: Can you please refer patient and follow up? Thanks! Carlos Pereira Pss 11/10/2022 8:46 AM Signed Janeth: Information ready for you. Adriana Ko [facility] 11/10/2022 9:38 AM Signed Records faxed. [...] Fully Assessed Reason for Visit: Referral Information [2155] Cmt: Vascular Consult Prescriptions as of 11/16/2022 [...] daily at bedtime. Cut in half - Ukjua-8-PPZ-EPA-Fish Oil 1,000 mg (120 mg-180 mg) cap Take 2 g by mouth twice daily. - isosorbide mononitrate ER (IMDUR) 60 mg 24 hr tablet Take 60 mg by mouth twice daily. Problem List As Of Date 11/09/2022 Noted Resolved Hypertension [I10] DM type 2 (diabetes mellitus, type 2) ([facility]) [E1* Essential hypertension [I10] 01/16/2017 Type 2 diabetes mellitus without complication, *01/16/2017 Hypothyroidism [E03.9] 01/16/2017 Dyslipidemia [E78.5] 01/16/2017 Atherosclerosis of galena coronary artery of na*01/16/2017 S/P coronary artery stent placement [Z95.5] 01/16/2017 Moderate smoker (20 or less per day) [F17.210] 01/16/2017 PAD (peripheral artery disease) ([facility]) [I73.9] 01/16/2017 Vaginal lesion [N89.8] 01/20/2017 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 Normal [facility] Comment on above: Result Comment: Elec tronically [...] Iliana Ramirez Where: General Surgery Chelsi/Angelita Victor [facility] General Surgery Office/Clini c Noteon 11-04-2022 General [...] and diastolic (congestive) heart failure Atherosclerosis of galena artery of extremity BMI 36.0-36.9,adult Brain stem [...] (more content not included)... Normal [facility] Comment on above: Result Comment: Elec tronically [...] by: MIGUELITO TELLEZ Date: 2022-11-02 17:17 Normal [facility] Pathology Noteon 10-26-2022 Pathology Note [id number]#1.0 0CD:127 Normal [facility] Ambulatory Visit Summaryon 0 10-25-2022 Ambulatory Visit [...] GAGNON MD Where: General Surgery Nill/Angelita Victor [facility] General Surgery Office/Clini c Noteon 10-25-2022 General [...] and diastolic (congestive) heart failure Atherosclerosis of galena artery of extremity BMI 36.0-36.9,adult Brain stem [...] (more content not included)... Normal [facility] Comment on above: Result Comment: Elec tronically Signed By: CHELSI CARDONA, Iliana Alvarez\Date and Time Signed: 10/25/22 16:13 EST Operative Reporton 3 Operative Report [id number] 0CD:127 Normal [facility] RAD - Ultrasound Reporton RAD - Ultrasound Report [id number] 0CD:127 Normal [facility] NM SENTNL NODEon 10-19-2022 NM SENTNL NODE [...] by: KRISTIN JAQUEZ Date: 2022-10-19 10:41 Normal [facility] POINT OF CARE GLUCOSEon Glucose [Mass/Vol] 153 mg/dL Critically high 74-[address] [facility] Comment on above: Performed By: #### P OCGLUC #### [facility] [address] [place] [address] Dr. Omid Bowden RAD - MISCon 10-19-2022 RAD - MISC [id number] 20 [id number]#1.0 0CD:127 Normal [facility] RAD - MISC [id number] 0CD:127 Normal [facility] RAD - Ultrasound Reporton RAD - Ultrasound Report [id number] 0CD:127 Normal [facility] RAD - Ultrasound Report [id number] 0CD:127 Normal [facility] US BREAST SPECIMENon 023 US BREAST SPECIMEN Patient: HARMAN MCLEOD Exam Date: 10/19/2022 : 1940 Gender:F Ordering : DR ILIANA GAGNON . Admission #: [id number] Family : Order #: [id number] CLICK HERE TO VIEW EXAM RADIOLOGY REPORT PROCEDURE: US BREAST SPECIMEN COMPARISON: None. INDICATIONS: Specimen from breast FINDINGS: Breast specimen demonstrates inclusion of the targeted mass as well as the micro clip marker CONCLUSION: Targeted mass and micro clip marker included within the specimen Dictated by: Judson Bauman MD on 10/19/2022 at 11:46 Approved by: Judson Bauman MD on 10/19/2022 at 11:47 Normal [facility] US GUIDE LOCAL BREAST RTon 0 10-19-2022 US GUIDE LOCAL BREAST RT Patient: HARMAN MCLEOD Exam Date: 10/19/2022 : 1940 Gender:F Ordering : DR ILIANA GAGNON . Admission #: [id number] Family : Order #: [id number] CLICK HERE TO VIEW EXAM RADIOLOGY REPORT [...] clip marker LOCATION: Right breast 9 NEEDLE: Jooobz! spring hook; 20 g by 5 cm needle and wire. MEDICATION: 6 cubic cm Superficial and deep buffered 1% lidocaine. COMPLICATIONS: None. CONCLUSION: Technically successful hookwire localization. Dictated by: Judson Bauman MD on 10/19/2022 at 09:04 Approved by: Judson Bauman MD on 10/19/2022 at 09:05 Normal [facility] US SENTINEL NODEon US SENTINEL NODE EXAM: [...] by: JUDSON BAUMAN Date: 2022-10-19 08:59 Normal [facility] RAD - MISCon 10-17-2022 RAD - MISC [id number] 20 [id number]#1.0 0CD:127 Normal [facility] CBC AUTO DIFFon 10-11-2022 BASO # 0.0 103/ul Normal 0.0-0.1 [facility] Comment on above: Performed By: #### H GB #### [facility] [address] [place] [address] Dr. Omid Bowden Basophils/100 WBC (Bld) 0.2 % Normal 0.2-2.0 [facility] Comment on above: Performed By: #### H GB #### [facility] [address] [place] [address] Dr. Omid Bowden EO # 0.0 103/ul Normal 0.0-0.7 [facility] Comment on above: Performed By: #### H GB #### [facility] [address] [place] [address] Dr. Omid Bowden Eosinophils/100 WBC (Bld) 0.3 % Critically low 0.9-7.0 [facility] Comment on above: Performed By: #### H GB #### [facility] [address] [place] [address] Dr. Omid Bowden Erythrocyte distribution width (RBC) [Ratio] 13.7 % Normal 11.0-15.0 [facility] Comment on above: Performed By: #### H GB #### [facility] [address] [place] [address] Dr. Omid Bowden Hematocrit (Bld) [Volume fraction] 39.6 % Normal 36.0-48.0 [facility] Comment on above: Performed By: #### H GB #### [facility] [address] [place] [address] Dr. Omid Bowden Hemoglobin (Bld) [Mass/Vol] 12.3 g/dL Normal 12.0-16.0 [facility] Comment on above: Performed By: #### H GB #### [facility] [address] [place] [address] Dr. Omid Bowden IG # 0.06 10e3/ul Critically high 0.00-0.[address] [facility] Comment on above: Performed By: #### H GB #### [facility] [address] [place] [address] Dr. Omid Bowden IG % 0.5 % Normal 0.0-0.5 [facility] Comment on above: Performed By: #### H GB #### [facility] [address] [place] [address] Dr. Omid Bowden LYMPH # 2.9 103/ul Normal 1.2-3.8 [facility] Comment on above: Performed By: #### H GB #### [facility] [address] [place] [address] Dr. Omid Bowden Lymphocytes/100 WBC (Bld) 26.2 % Normal 20.5-60.0 [facility] Comment on above: Performed By: #### H GB #### [facility] [address] [place] [address] Dr. Omid Bowden MANUAL DIFF REQ NO Normal [facility] Comment on above: Performed By: #### H GB #### [facility] [address] [place] [address] Dr. Omid Bowden MCH (RBC) [Entitic mass] 28.3 pg Normal 26.7-34.0 [facility] Comment on above: Performed By: #### H GB #### [facility] [address] [place] [address] Dr. Omid Bowden MCHC (RBC) [Mass/Vol] 31.1 g/dL Normal 29.9-35.2 [facility] Comment on above: Performed By: #### H GB #### [facility] [address] [place] [address] Dr. Omid Bowden MCV (RBC) [Entitic vol] 91.2 fL Normal 81.0-99.0 [facility] Comment on above: Performed By: #### H GB #### [facility] [address] [place] [address] Dr. Omid Bowden MONO # 0.9 103/ul Critically high 0.3-0.8 [facility] Comment on above: Performed By: #### H GB #### [facility] [address] [place] [address] Dr. Omid Bowden Monocytes/100 WBC (Bld) 8.3 % Normal 1.7-12.0 [facility] Comment on above: Performed By: #### H GB #### [facility] [address] [place] [address] Dr. Omid Bowden NEUT # 7.0 103/ul Critically high 1.4-6.5 [facility] Comment on above: Performed By: #### H GB #### [facility] [address] [address] [address] Omid Bowden Neutrophils/100 WBC (Bld) 64.5 % Normal 43.0-75.0 [facility] Comment on above: Performed By: #### H GB #### [facility] [address] [address] [address] Omid Bowden Platelet mean volume (Bld) [Entitic vol] 9.2 fL Critically low 9.5-13.5 [facility] Comment on above: Performed By: #### H GB #### [facility] [address] [place] [address] Dr. Omid Bowden PLT 346 103/ul Normal 150-450 [facility] Comment on above: Performed By: #### H GB #### [facility] [address] [address] [address] Omid Bowden RBC 4.34 106/ul Normal 4.20-5.40 [facility] Comment on above: Performed By: #### H GB #### [facility] [address] [address] [address] Omid Bowden WBC 10.9 103/ul Normal 4.0-11.0 [facility] Comment on above: Performed By: #### H GB #### [facility] [address] [address] [address] Omid Bowden PROF CHEM 8 (BAS METB)on Anion gap [Moles/Vol] 11.0 mmol/L Normal [facility] Comment on above: Performed By: #### L IPID, BMP #### [facility] [address] [address] [address] Omid Bowden Calcium [Mass/Vol] 9.6 mg/dL Normal 8.5-10.1 [facility] Comment on above: Performed By: #### L IPID, BMP #### [facility] [address] [address] [address] Omid Bowden Chloride [Moles/Vol] 99 mmol/L Normal 98-107 [facility] Comment on above: Performed By: #### L IPID, BMP #### [facility] [address] [address] [address] Omid Bowden CO2 [Moles/Vol] 32.0 mmol/L Normal 21.0-32.0 [facility] Comment on above: Performed By: #### L IPID, BMP #### [facility] [address] [place] [address] Dr. Omid Bowden Creatinine [Mass/Vol] 1.03 mg/dL Critically high 0.55-1.02 [facility] Comment on above: Performed By: #### L IPID, BMP #### [facility] [address] [place] [address] Dr. Omid Bowden EGFR-AF KOSOVAN >60 Normal >=60 [facility] Comment on above: Performed By: #### L IPID, BMP #### [facility] [address] [place] [address] Dr. Omid Bowden EGFR-NON AF KOSOVAN 52 mL/min/1.73m2 Critically low >=60 [facility] Comment on above: Performed By: #### L IPID, BMP #### [facility] [address] [place] [address] Dr. Omid Bowden Glucose [Mass/Vol] 94 mg/dL Normal 74-106 [facility] Comment on above: Performed By: #### L IPID, BMP #### [facility] [address] [place] [address] Dr. Omid Bowden Potassium [Moles/Vol] 4.0 mmol/L Normal 3.5-5.1 [facility] Comment on above: Performed By: #### L IPID, BMP #### [facility] [address] [place] [address] Dr. Omid Bowden Sodium [Moles/Vol] 138 mmol/L Normal 136-145 [facility] Comment on above: Performed By: #### L IPID, BMP #### [facility] [address] [place] [address] Dr. Omid Bowden Urea nitrogen [Mass/Vol] 28.0 mg/dL Critically high 7.0-18.0 [facility] Comment on above: Performed By: #### L IPID, BMP #### [facility] [address] [address] [address] Omid Bowden Urea nitrogen/Creatinine [Mass ratio] 27.2 mg/mg Normal [facility] Comment on above: Performed By: #### L IPID, BMP #### [facility] [address] [address] [address] Omid Bowden PROTIMEon 10-11-2022 INR Coag (PPP) [Relative time] 0.99 {INR} Normal [facility] Comment on above: Performed By: #### H GB #### [facility] [address] [place] [address] Dr. Omid Bowden INR GUIDELINES SEE BELOW Normal [facility] Comment on above: Result Comment: PERLITA RED INR: 2.0 - 3.0 CONDITIONS NOT LISTED BELOW 2.5 - 3.5 FOR PROSTHETIC HEART VALVE REPLACEMENT 2.5 - 3.5 RECURRENT THROMBOSIS Performed By: #### H GB #### [facility] [address] [place] [address] Dr. Omid Bowden PT Coag (PPP) [Time] 10.5 s Normal 9.0-11.6 [facility] Comment on above: Performed By: #### H GB #### [facility] [address] [place] [address] Dr. Omid Bowden PTTon 10-11-2022 aPTT Coag (Bld) [Time] 28.6 s Normal 22.3-36.2 [facility] Comment on above: Performed By: #### H GB #### [facility] [address] [place] [address] Dr. Omid Bowden Consultation Noteon 10-06-19 Consultation Note [id number] 0CD:127 Normal [facility] INSULINon 10-01-2022 Insulin 22.8 uIU/mL Normal 2.6-24.9 [facility] Comment on above: Performed By: #### L IPID, BMP #### [facility] [address] [address] [address] Omid Bowden GLYCOHEMOGLOBIN A1Con 2022 ADA RECOMMENDATION SEE BELOW Normal [facility] Comment on above: Result Comment: ADA RECOMMENDED LIMIT 4.0 - 6.0 ADA THERAPEUTIC TARGET < 7.0 ACTION SUGGESTED > 7.0 Performed By: #### H GB #### [facility] [address] [address] [address] Omid Bowden Glucose [Mass/Vol] 177 mg/dL Normal [facility] Comment on above: Performed By: #### H GB #### [facility] [address] [address] [address] Omid Bowden HbA1c (Bld) [Mass fraction] 7.8 % Critically high 4.5-6.2 [facility] Comment on above: Performed By: #### H GB #### [facility] [address] [address] [address] Omid Bowden PROF 14(COMP METB)on 023 Albumin [Mass/Vol] 3.0 g/dL Critically low 3.4-5.0 Th [facility] Comment on above: Performed By: #### C MP ####[facility] [address] [address]DrMedardo Bowden Albumin/Globulin [Mass ratio] 0.7 {ratio} Normal [facility] Comment on above: Performed By: #### C MP ####[facility] [address] [place] [address]DrMedardo Bowden ALP [Catalytic activity/Vol] 73 U/L Normal 46-116 [facility] Comment on above: Performed By: #### C MP ####[facility] [address] [place] [address]DrMedardo Bowden ALT [Catalytic activity/Vol] 16 U/L Normal 14-59 [facility] Comment on above: Performed By: #### C MP ####[facility] [address] [place] [address]DrMedardo Bowden Anion gap [Moles/Vol] 11.3 mmol/L Normal [facility] Comment on above: Performed By: #### C MP ####[facility] [address] [place] [address]Dr. Omid Kal AST [Catalytic activity/Vol] 14 U/L Critically low 15-37 [facility] Comment on above: Performed By: #### C MP ####[facility] Lvwgq[address] [place], [place] [address]Dr. Aixamegan Kal Bilirubin [Mass/Vol] 0.3 mg/dL Normal 0.2-1.0 [facility] Comment on above: Performed By: #### C MP ####[facility] Bmdwevys[address] [place], [place] [address]Dr. Omid Bowden Calcium [Mass/Vol] 9.5 mg/dL Normal 8.5-10.1 [facility] Comment on above: Performed By: #### C MP ####[facility] Iwkqmyzyhh[address] [place], [place] [address]Dr. Omid Bowden Chloride [Moles/Vol] 102 mmol/L Normal 98-107 [facility] Comment on above: Performed By: #### C MP ####[facility] Khzcwatbvt[address] [place], [place] [address]Dr. Omid Bowden CO2 [Moles/Vol] 31.1 mmol/L Normal 21.0-32.0 [facility] Comment on above: Performed By: #### C MP ####[facility] Npawgaobdq[address] [place], [place] [address]Dr. Omid Bowden Creatinine [Mass/Vol] 1.28 mg/dL Critically high 0.55-1.02 [facility] Comment on above: Performed By: #### C MP ####[facility] Vbqf[address]ltfm[address] [place], [place] [address]Dr. Omid Bowden EGFR-AF KOSOVAN 49 mL/min/1.73m2 Critically low >=60 [facility] Comment on above: Performed By: #### C MP ####[facility] Svvvexmurg[address] [place], [place] [address]Dr. Omid Bowden EGFR-NON AF KOSOVAN 40 mL/min/1.73m2 Critically low >=60 [facility] Comment on above: Performed By: #### C MP ####[facility] [address] [place] [address]Dr. Aixamegan Kal Globulin (S) [Mass/Vol] 4.4 g/dL Normal [facility] Comment on above: Performed By: #### C MP ####[facility] Ntypcqxkvx[address] [place], [place] [address]Dr. Aixamegan Kal Glucose [Mass/Vol] 103 mg/dL Normal 74-106 [facility] Comment on above: Performed By: #### C MP ####[facility] Lokfscubno[address] [place], [place] [address]Dr. Omid Bowden Potassium [Moles/Vol] 4.4 mmol/L Normal 3.5-5.1 [facility] Comment on above: Performed By: #### C MP ####[facility] Lexymasost[address] [place], [place] [address]Dr. Aixamegan Bowden Protein [Mass/Vol] 7.4 g/dL Normal 6.4-8.2 [facility] Comment on above: Performed By: #### C MP ####[facility] Nodscoecbj[address] [place], [place] [address]Dr. Omid Bowden Sodium [Moles/Vol] 140 mmol/L Normal 136-145 [facility] Comment on above: Performed By: #### C MP ####[facility] Dnmjukfx[address] [place], [place] [address]Dr. Omid Bowden Urea nitrogen [Mass/Vol] 27.0 mg/dL Critically high 7.0-18.0 [facility] Comment on above: Performed By: #### C MP ####[facility] Afggsedpvq[address] [place], [place] [address]Dr. Omid Bowden Urea nitrogen/Creatinine [Mass ratio] 21.1 mg/mg Normal [facility] Comment on above: Performed By: #### C MP ####[facility] Zuxmx[address]ccg[address] [place], [place] [address]Dr. Omid Bowden Formson 09-29-2022 Forms [id number]#1.0 0CD:127 Normal [facility] Consent for Procedure/Surger yon 09-26-2022 Consent for Procedure/Surgery [id number]#1.0 0CD:127 Normal [facility] Consultation Noteon 09-23-19 Consultation Note [id number]#1.0 0CD:127 Normal [facility] CNOVon 09-22-2022 CNOV Office Visit (RADTSA ) HARMAN MCLEOD ([id number]) 1940 F Date Time Provider Department 09/22/22 1:00 PM MARCIN SHAH During your visit today, we recorded the following information about you: Marcin Shah MD 2022 6:06 AM Addendum Radiation Oncology - New Patient/Consult Note PATIENT NAME: Harman Mcleod PATIENT REQUESTING PHYSICIAN: Dr. 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 PATIENT IDENTIFICATION: This patient was seen in the Department of Radiation Oncology at the [facility] with Marcin Shah MD. She was accompanied today by her family. Final recommendations will be communicated back to the requesting physician by way of the shared medical record, or letter to requesting physician via US mail. HISTORY OF PRESENT ILLNESS: Ms. Mcleod is an 82-year-old woman from [place], [place] who was discovered on screening mammogram from July 2022 to have an abnormality within the anterior upper outer quadrant of the right breast. This was confirmed on ultrasound and she underwent stereotactic biopsy on 08/19/2022 with pathology revealing intermediate grade IDC that was ER/WI positive HER2 negative. She has met with [...] tablet crenshaw (more content not included)... Normal [facility] CNOVSPon 09-22-2022 CNOVSP Visit (SP) Office (HEMASA) HARMAN MCLEOD ([id number]) 1940 F Date Time Provider Department 09/22/22 11:30 AM WALLACE STONE During your visit today, we recorded the following information about you: Temperature Pulse Respiration Blood pressure 97.8 degrees 70/minute 16/minute 137/64 Weight Height 84.8 kg 1.549 m Wallace Stone MD 09/22/2022 5:19 PM Signed PATIENT NAME: Harman Mcleod CLINIC NO.: [id number] ATTENDING PHYSICIAN: Wallace Stone MD DATE OF [...] provisional grade 1 through 2, ER and WI greater than 95% positive, HER2/holden negative with an IHC score of 1+ and FISH negative at [facility]. This patient was subsequently referred to Dr. Iliana Gagnon for surgical consultation. Patient denies any previous history of abnormal mammograms and or breast biopsy. She has had a recent bone density in [place] and was diagnosed with osteoporosis and started on Prolia as well. Patient has a sister who was diagnosed with breast cancer at the age of 82 and her daughter diagnosed with breast cancer at the age of 37. She quit smoking approximately 4 years ago. 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 [...] mouth daily at bedtime. Cut in half Ofqng-9-QMO-EPA-Fish Oil 1,000 mg (120 mg-180 mg) cap [...] high r (more content not included)... Normal [facility] Destinee 09-22-2022 JENNY Telephone (INDIA) HARSHAHARMAN ([id number]) 1940 F Date Time Provider Department 09/22/22 [...] daily at bedtime. Cut in half - Qsrqh-1-MTJ-EPA-Fish Oil 1,000 mg (120 mg-180 mg) cap Take 2 g by mouth twice daily. - isosorbide mononitrate ER (IMDUR) 60 mg 24 hr tablet Take 60 mg by mouth twice daily. 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 Performed By: #### C [facility] ####[place] [address]Dr. Omdi Bowden INFLUENZA A AND B AGon 09-21 INFLUANEGH SEE BELOW Normal [facility] Comment on above: Result Comment: Nega tive for Flu A protein angiten. Infection due to Flu A cannot be ruled out. Flu A angiten in the sample may be below the detection limit of the test. Performed By: #### I NFLUAB ####[facility] [address] [address]Dr. Omid Bowden INFLUBNEGH SEE BELOW Normal [facility] Comment on above: Result Comment: Nega tive for Flu B protein antigen. Infection due to Flu B cannot be ruled out. Flu B antigen in the sample may be below the detection limit of the test. Performed By: #### I NFLUAB ####[facility] [address] [address]Dr. Omid Bowden INFLUENZA A AG Negative Normal NEGATIVE SEE COMMENT [facility] Comment on above: Performed By: #### I NFLUAB ####[facility] [address] [place] [address]Dr. Omid Bowden INFLUENZA B AG Negative Normal NEGATIVE SEE COMMENT [facility] Comment on above: Performed By: #### I NFLUAB ####[facility] [address] [place] [address]Dr. Omid Bowden LIPID PROFILEon 09-16-2022 CHOL-HDL RATIO NORM SEE BELOW Normal [facility] Comment on above: Result Comment: 3.3 - 4.4 LOW RISK 4.4 - 7.1 AVERAGE RISK 7.1 - 11.0 MODERATE RISK >11.0 HIGH RISK Performed By: #### L IPID, BMP #### [facility] [address] [address] [address] Omid Bowden Cholesterol [Mass/Vol] 210 mg/dL Critically high <=200 [facility] Comment on above: Performed By: #### L IPID, BMP #### [facility] [address] [address] [address] Omid Bowden Cholesterol in HDL [Mass/Vol] 49 mg/dL Normal 40-60 [facility] Comment on above: Performed By: #### L IPID, BMP #### [facility] [address] [address] [address] Omid Bowden Cholesterol in LDL [Mass/Vol] 84.2 mg/dL Normal [facility] Comment on above: Performed By: #### L IPID, BMP #### [facility] [address] [place] [address] Dr. Omid Bowden Cholesterol.total/Chol esterol in HDL [Mass ratio] 4.3 {ratio} Normal [facility] Comment on above: Performed By: #### L IPID, BMP #### [facility] [address] [place] [address] Dr. Omid Bowden HDL NORMAL > or = 60 mg/dl - LO W CARDIOVASCULAR RISK <40 mg/dl - HIGH CARDIOVASCULAR RISK Normal [facility] Comment on above: Performed By: #### L IPID, BMP #### [facility] [address] [place] [address] Dr. Omid Bowden LDL CALC NORMAL SEE BELOW Normal [facility] Comment on above: Result Comment: <100 mg/dl OPTIMAL 100 - 129 mg/dl NEAR OR ABOVE OPTIMAL 130 - 159 mg/dl BORDERLINE HIGH 160 - 189 mg/dl HIGH >190 mg/dl VERY HIGH Performed By: #### L IPID, BMP #### [facility] [address] [place] [address] Dr. Omid Bowden Triglyceride [Mass/Vol] 384 mg/dL Critically high <=150 [facility] Comment on above: Performed By: #### L IPID, BMP #### [facility] [address] [place] [address] Dr. Omid Bowden VLDL CALC 76.8 mg/dL Normal [facility] Comment on above: Performed By: #### L IPID, BMP #### [facility] [address] [place] [address] Dr. Omid Bowden PROF CHEM 8 (BAS METB)on Anion gap [Moles/Vol] 10.8 mmol/L Normal [facility] Comment on above: Performed By: #### L IPID, BMP #### [facility] [address] [address] [address] Omid Bowden Calcium [Mass/Vol] 8.8 mg/dL Normal 8.5-10.1 [facility] Comment on above: Performed By: #### L IPID, BMP #### [facility] [address] [address] [address] Omid Bowden Chloride [Moles/Vol] 98 mmol/L Normal 98-107 [facility] Comment on above: Performed By: #### L IPID, BMP #### [facility] [address] [address] [address] Omid Bowden CO2 [Moles/Vol] 34.5 mmol/L Critically high 21.0-32.0 [facility] Comment on above: Performed By: #### L IPID, BMP #### [facility] [address] [place] [address] Dr. Omid Bowden Creatinine [Mass/Vol] 1.17 mg/dL Critically high 0.55-1.02 [facility] Comment on above: Performed By: #### L IPID, BMP #### [facility] [address] [place] [address] Dr. Omid Bowden EGFR-AF KOSOVAN 54 mL/min/1.73m2 Critically low >=60 [facility] Comment on above: Performed By: #### L IPID, BMP #### [facility] [address] [place] [address] Dr. Omid Bowden EGFR-NON AF KOSOVAN 45 mL/min/1.73m2 Critically low >=60 [facility] Comment on above: Performed By: #### L IPID, BMP #### [facility] [address] [address] [address] Omid Bowden Glucose [Mass/Vol] 193 mg/dL Critically high 74-106 [facility] Comment on above: Performed By: #### L IPID, BMP #### [facility] [address] [place] [address] Dr. Omid Bowden Potassium [Moles/Vol] 3.3 mmol/L Critically low 3.5-5.1 [facility] Comment on above: Performed By: #### L IPID, BMP #### [facility] [address] [address] [address] Omid Bowden Sodium [Moles/Vol] 140 mmol/L Normal 136-145 [facility] Comment on above: Performed By: #### L IPID, BMP #### [facility] [address] [address] [address] Omid Bowden Urea nitrogen [Mass/Vol] 31.0 mg/dL Critically high 7.0-18.0 [facility] Comment on above: Performed By: #### L IPID, BMP #### [facility] [address] [address] [address] Omid Bowden Urea nitrogen/Creatinine [Mass ratio] 26.5 mg/mg Normal [facility] Comment on above: Performed By: #### L IPID, BMP #### [facility] [address] [address] [address] Omid Bowden Facesheeton 09-13-2022 Facesheet [id number]#1.0 0CD:127 Normal [facility] Consultation Noteon 09-01-20 Consultation Note [id number]#1.0 0CD:127 Normal [facility] ED Note-Physicianon 09-01-20 ED Note-Physician [id number]#1.0 0CD:127 Normal [facility] Lab Reportson 09-01-2022 Lab Reports [id number]#1.0 0CD:127 Normal [facility] Lab Reports [id number]#1.0 0CD:127 Normal [facility] Physician Referralon 022 Physician Referral [id number]#1.0 0CD:127 Normal [facility] C. DIFF PCRon 08-23-2022 C. DIFFICILE PCR Negative Normal NEGATIVE [facility] Comment on above: Performed By: #### C DIFPOC ####[facility] [address] [place] [address]Dr. Omid Bowden CBC AUTO DIFFon 08-19-2022 BASO # 0.0 103/ul Normal 0.0-0.1 [facility] Comment on above: Performed By: #### C BC ####[facility] [address] [place], [place] [address]Dr. Omid Kal Basophils/100 WBC (Bld) 0.3 % Normal 0.2-2.0 [facility] Comment on above: Performed By: #### C BC ####[facility] [address] [place], [place] [address]Dr. Omid Bowden EO # 0.5 103/ul Normal 0.0-0.7 [facility] Comment on above: Performed By: #### C BC ####[facility] [address] [place], [place] [address]Dr. Omid Bowden Eosinophils/100 WBC (Bld) 3.2 % Normal 0.9-7.0 [facility] Comment on above: Performed By: #### C BC ####[facility] [address] [place], [place] [address]Dr. Omid Bowden Erythrocyte distribution width (RBC) [Ratio] 14.1 % Normal 11.0-15.0 [facility] Comment on above: Performed By: #### C BC ####[facility] [address] [place], [place] [address]Dr. Omid Bowden Hematocrit (Bld) [Volume fraction] 36.1 % Normal 36.0-48.0 [facility] Comment on above: Performed By: #### C BC ####[facility] [address] [place], [place] [address]Dr. Omid Bowden Hemoglobin (Bld) [Mass/Vol] 11.7 g/dL Critically low 12.0-16.0 [facility] Comment on above: Performed By: #### C BC ####[facility] [address] [place] [address]Dr. Omid Bowden IG # 0.08 10e3/ul Critically high 0.00-0.03 [facility] Comment on above: Performed By: #### C BC ####[facility] [address] [place] [address]Dr. Omid Bowden IG % 0.5 % Normal 0.0-0.5 [facility] Comment on above: Performed By: #### C BC ####[facility] [address] [place] [address]Dr. Omid Kal LYMPH # 1.2 103/ul Normal 1.2-3.8 [facility] Comment on above: Performed By: #### C BC ####[facility] [address] [place] [address]Dr. Omid Bowden Lymphocytes/100 WBC (Bld) 7.5 % Critically low 20.5-60.0 [facility] Comment on above: Performed By: #### C BC ####[facility] [address] [place] [address]Dr. Aixamegan Bowden MANUAL DIFF REQ NO Normal [facility] Comment on above: Performed By: #### C BC ####[facility] [address] [place] [address]Dr. Omid Bowden MCH (RBC) [Entitic mass] 29.2 pg Normal 26.7-34.0 [facility] Comment on above: Performed By: #### C BC ####[facility] [address] [place] [address]Dr. Omid Kal MCHC (RBC) [Mass/Vol] 32.4 g/dL Normal 29.9-35.2 [facility] Comment on above: Performed By: #### C BC ####[facility] [address] [place] [address]Dr. Omid Kal MCV (RBC) [Entitic vol] 90.0 fL Normal 81.0-99.0 [facility] Comment on above: Performed By: #### C BC ####[facility] [address] [place] [address]Dr. Omid Bowden MONO # 1.0 103/ul Critically high 0.3-0.8 [facility] Comment on above: Performed By: #### C BC ####[facility] [address] [place] [address]Dr. Omid Bowden Monocytes/100 WBC (Bld) 6.8 % Normal 1.7-12.0 [facility] Comment on above: Performed By: #### C BC ####[facility] [address] [place] [address]Dr. Omid Bowden NEUT # 12.5 103/ul Critically high 1.4-6.5 [facility] Comment on above: Performed By: #### C BC ####[facility] [address] [place] [address]Dr. Omid Bowden Neutrophils/100 WBC (Bld) 81.7 % Critically high 43.0-75.0 [facility] Comment on above: Performed By: #### C BC ####[facility] [address] [place] [address]Dr. Omid Bowden Platelet mean volume (Bld) [Entitic vol] 8.9 fL Critically low 9.5-13.5 [facility] Comment on above: Performed By: #### C BC ####[facility] [address] [place] [address]Dr. Omid Bowden PLT 252 103/ul Normal 150-450 [facility] Comment on above: Performed By: #### C BC ####[facility] [address] [place] [address]Dr. Omid Bowden RBC 4.01 106/ul Critically low 4.20-5.40 [facility] Comment on above: Performed By: #### C BC ####[facility] [address] [place] [address]Dr. Omid Bowden WBC 15.3 103/ul Critically high 4.0-11.0 [facility] Comment on above: Performed By: #### C BC ####[facility] [address] [place], [place] [address]Dr. Omid Bowden IRONon 08-19-2022 Iron [Mass/Vol] 59.0 ug/dL Normal 50.0-170.0 [facility] Comment on above: Performed By: #### H GB #### [facility] [address] [place], [place] [address] Dr. Omid Bowden MAMMO POST BIOPSY RIGHTon MAMMO POST BIOPSY RIGHT Patient: HARMAN MCLEOD Exam Date: 08/19/2022 : 1940 Gender:F Ordering : DR MATEUS PERRY . Admission #: [id number] Family : Order #: [id number] CLICK HERE TO VIEW EXAM This report [...] Bauman MD on 09/06/2022 at 09:57 Normal [facility] PROTIMEon 08-19-2022 INR Coag (PPP) [Relative time] 0.99 {INR} Normal [facility] Comment on above: Performed By: #### P T, PTT ####[facility] [address] [place], [place] [address]Dr. Omid Bowden INR GUIDELINES SEE BELOW Normal [facility] Comment on above: Result Comment: PERLITA RED INR: 2.0 - 3.0 CONDITIONS NOT LISTED BELOW 2.5 - 3.5 FOR PROSTHETIC HEART VALVE REPLACEMENT 2.5 - 3.5 RECURRENT THROMBOSIS Performed By: #### P T, PTT ####[facility] [address] [place], [place] [address]Oq. Omid Bowden PT Coag (PPP) [Time] 10.7 s Normal 9.0-11.6 [facility] Comment on above: Performed By: #### P T, PTT ####[facility] [address] [place], [place] [address]Iv. Omid Bowden PTTon 08-19-2022 aPTT Coag (Bld) [Time] 26.0 s Normal 22.3-36.[address] [facility] Comment on above: Performed By: #### P T, PTT ####[facility] [address] [place], [place] [address]Uf. Omid Bowden US VAC ASST BX BRST RT W CLI Jose Maria 08-19-2022 US VAC ASST BX BRST RT W CLIP Patient: HARMAN MCLEOD Exam Date: 08/19/2022 : 1940 Gender:F Ordering : DR MATEUS PERRY . Admission #: [id number] Family : Order #: [id number] CLICK HERE TO VIEW EXAM This report [...] MD on 09/06/2022 at 09:55 Normal [facility] CULTURE URINEon 08-16-2022 CULTURE URINE Isolate [...] F Nitrofurantoin <=16 S F Normal [facility] Comment on above: Performed By: #### U RCX ####[facility] [address] [place] [address]Dr. Omid Bowden CARDIAC ADILIA ADMITon 022 CK [Catalytic activity/Vol] 128 U/L Normal 26-192 [facility] Comment on above: Performed By: #### L IPID, BMP #### [facility] [address] [address] [address] Omid Bowden CK.MB [Mass/Vol] 2.88 ng/mL Normal <=3.60 [facility] Comment on above: Performed By: #### L IPID, BMP #### [facility] [address] [address] [address] Omid Bowden HSTROP 24.1 pg/mL Normal 4.0-51.3 [facility] Comment on above: Result Comment: CUT- OFF POINTS HAVE BEEN ESTABLISHED BASED ON THE FOURTH UNIVERSAL DEFINITIONS OF MYOCARDIAL INFARCTION. THE UPPER REFERENCE LIMIT (URL) OF TROPONIN, DEFINED THE 99TH PERCENTILE OF cTnI DISTRIBUTION IN A REFERENCE POPULATION, HAS BEEN CONFIRMED THE DECISION THRESHOLD FOR SD DIAGNOSIS. Performed By: #### L IPID, BMP #### [facility] [address] [address] [address] Omid Bowden JACINTA 61 ng/mL Normal 9-82 [facility] Comment on above: Performed By: #### L IPID, BMP #### [facility] [address] [place] [address] Dr. Omid Bowden CBC AUTO DIFFon 08-14-2022 BASO # 0.0 103/ul Normal 0.0-0.1 [facility] Comment on above: Performed By: #### H GB #### [facility] [address] [place] [address] Dr. Omid Bowden Basophils/100 WBC (Bld) 0.4 % Normal 0.2-2.0 [facility] Comment on above: Performed By: #### H GB #### [facility] [address] [place] [address] Dr. Omid Bowden EO # 0.3 103/ul Normal 0.0-0.7 [facility] Comment on above: Performed By: #### H GB #### [facility] [address] [place] [address] Dr. Omid Bowden Eosinophils/100 WBC (Bld) 2.6 % Normal 0.9-7.0 [facility] Comment on above: Performed By: #### H GB #### [facility] [address] [place] [address] Dr. Omid Bowden Erythrocyte distribution width (RBC) [Ratio] 14.1 % Normal 11.0-15.0 [facility] Comment on above: Performed By: #### H GB #### [facility] [address] [place] [address] Dr. Omid Bowden Hematocrit (Bld) [Volume fraction] 35.5 % Critically low 36.0-48.0 [facility] Comment on above: Performed By: #### H GB #### [facility] [address] [place] [address] Dr. Omid Bowden Hemoglobin (Bld) [Mass/Vol] 11.6 g/dL Critically low 12.0-16.0 [facility] Comment on above: Performed By: #### H GB #### [facility] [address] [address] [address] Omid Bowden IG # 0.06 10e3/ul Critically high 0.00-0.[address] [facility] Comment on above: Performed By: #### H GB #### [facility] [address] [place] [address] Dr. Omid Bowden IG % 0.6 % Critically high 0.0-0.5 [facility] Comment on above: Performed By: #### H GB #### [facility] [address] [place] [address] Dr. Omid Bowden LYMPH # 3.4 103/ul Normal 1.2-3.8 [facility] Comment on above: Performed By: #### H GB #### [facility] [address] [place] [address] Dr. Omid Bowden Lymphocytes/100 WBC (Bld) 35.5 % Normal 20.5-60.0 [facility] Comment on above: Performed By: #### H GB #### [facility] [address] [place] [address] Dr. Omid Bowden MANUAL DIFF REQ NO Normal [facility] Comment on above: Performed By: #### H GB #### [facility] [address] [place] [address] Dr. Omid Bowden MCH (RBC) [Entitic mass] 29.5 pg Normal 26.7-34.0 [facility] Comment on above: Performed By: #### H GB #### [facility] [address] [place] [address] Dr. Omid Bowden MCHC (RBC) [Mass/Vol] 32.7 g/dL Normal 29.9-35.2 [facility] Comment on above: Performed By: #### H GB #### [facility] [address] [place] [address] Dr. Omid Bowden MCV (RBC) [Entitic vol] 90.3 fL Normal 81.0-99.0 [facility] Comment on above: Performed By: #### H GB #### [facility] [address] [place] [address] Dr. Omid Bowden MONO # 1.0 103/ul Critically high 0.3-0.8 [facility] Comment on above: Performed By: #### H GB #### [facility] [address] [place] [address] Dr. Omid Bowden Monocytes/100 WBC (Bld) 10.5 % Normal 1.7-12.0 [facility] Comment on above: Performed By: #### H GB #### [facility] [address] [place] [address] Dr. Omid Bowden NEUT # 4.8 103/ul Normal 1.4-6.5 [facility] Comment on above: Performed By: #### H GB #### [facility] [address] [place] [address] Dr. Omid Bowden Neutrophils/100 WBC (Bld) 50.4 % Normal 43.0-75.0 [facility] Comment on above: Performed By: #### H GB #### [facility] [address] [place] [address] Dr. Omid Bowden Platelet mean volume (Bld) [Entitic vol] 9.1 fL Critically low 9.5-13.5 [facility] Comment on above: Performed By: #### H GB #### [facility] [address] [place] [address] Dr. Omid Bowden PLT 276 103/ul Normal 150-450 [facility] Comment on above: Performed By: #### H GB #### [facility] [address] [place] [address] Dr. Omid Bowden RBC 3.93 106/ul Critically low 4.20-5.40 [facility] Comment on above: Performed By: #### H GB #### [facility] [address] [place] [address] Dr. Omid Bowden WBC 9.5 103/ul Normal 4.0-11.0 [facility] Comment on above: Performed By: #### H GB #### [facility] [address] [place] [address] Dr. Omid Bowden ER URINE PROFILEon 2 Bilirubin Ql (U) Negative Normal NEGATIVE [facility] Comment on above: Performed By: #### U MICRO, ERUR ####[facility] [address] [place], [place] [address]Dr. Omid Bowden Clarity (U) CLEAR Normal CLEAR [facility] Comment on above: Performed By: #### U MICRO, ERUR ####[facility] [address] [place], [place] [address]Dr. Omid Bowden Color (U) LT. YELLOW Normal YELLOW [facility] Comment on above: Performed By: #### U MICRO, ERUR ####[facility] [address] [place], [place] [address]Dr. Omid Bowden ERUAHD A micrscopic examination will be performed if indicated. Normal [facility] Comment on above: Performed By: #### U MICRO, ERUR ####[facility] [address] [place], [place] [address]Dr. Omid Bowden Glucose Ql (U) Negative Normal NEGATIVE [facility] Comment on above: Performed By: #### U MICRO, ERUR ####[facility] [address] [place], [place] [address]Dr. Omid Bowden Hemoglobin Ql (U) Negative Normal NEGATIVE [facility] Comment on above: Performed By: #### U MICRO, ERUR ####[facility] [address] [place], [place] [address]Dr. Omid Bowden Ketones Ql (U) Negative Normal NEGATIVE [facility] Comment on above: Performed By: #### U MICRO, ERUR ####[facility] [address] [place], [place] [address]Dr. Omid Bowden LEUKOCYTES TRACE Abnormal NEGATIVE [facility] Comment on above: Performed By: #### U MICRO, ERUR ####[facility] [address] [place], [place] [address]Dr. Omid Bowden Nitrite Ql (U) Negative Normal NEGATIVE [facility] Comment on above: Performed By: #### U MICRO, ERUR ####[facility] [address] [place], [place] [address]Dr. Omid Bowden pH (U) 6.0 [pH] Normal 5-9 [facility] Comment on above: Performed By: #### U MICRO, ERUR ####[facility] [address] [address]DrMedardo Bowden SPEC GRAVITY 1.020 Normal 1.005-<=1.0 25 [facility] Comment on above: Performed By: #### U MICRO, ERUR ####[facility] [address] [address]DrMedardo Bowden UA PROTEIN Negative Normal NEGATIVE/ TRACE [facility] Comment on above: Performed By: #### U MICRO, ERUR ####[facility] [address] [address]Dr. Omid Bowden UR MICRO IND INDICATED Normal [facility] Comment on above: Performed By: #### U MICRO, ERUR ####[facility] [address] [address]Dr. Omid Bowden Urobilinogen Qn (U) 0.2 {Jose'U}/dL Normal 0.2 - 1. 0 [facility] Comment on above: Performed By: #### U MICRO, ERUR ####[facility] [address] [address]DrMedardo Bowden OCC BLD IMMUNO SCREENon OCCULT BLOOD Negative Normal NEGATIVE [facility] Comment on above: Performed By: #### O BSCRN #### [facility] [address] [address] [address] Omid Bowden PROF CHEM 8 (BAS METB)on Anion gap [Moles/Vol] 5.5 mmol/L Normal [facility] Comment on above: Performed By: #### L IPID, BMP #### [facility] [address] [address] [address] Omid Bowden Calcium [Mass/Vol] 8.6 mg/dL Normal 8.5-10.1 [facility] Comment on above: Performed By: #### L IPID, BMP #### [facility] [address] [place] [address] Dr. Omid Bowden Chloride [Moles/Vol] 103 mmol/L Normal 98-107 [facility] Comment on above: Performed By: #### L IPID, BMP #### [facility] [address] [address] [address] Omid Bowden CO2 [Moles/Vol] 31.8 mmol/L Normal 21.0-32.0 [facility] Comment on above: Performed By: #### L IPID, BMP #### [facility] [address] [address] [address] Omid Bowden Creatinine [Mass/Vol] 0.99 mg/dL Normal 0.55-1.02 [facility] Comment on above: Performed By: #### L IPID, BMP #### [facility] [address] [place] [address] Dr. Omid Bowden EGFR-AF KOSOVAN >60 Normal >=60 [facility] Comment on above: Performed By: #### L IPID, BMP #### [facility] [address] [place] [address] Dr. Omid Bowden EGFR-NON AF KOSOVAN 54 mL/min/1.73m2 Critically low >=60 [facility] Comment on above: Performed By: #### L IPID, BMP #### [facility] [address] [place] [address] Dr. Omid Bowden Glucose [Mass/Vol] 112 mg/dL Critically high 74-106 [facility] Comment on above: Performed By: #### L IPID, BMP #### [facility] [address] [place] [address] Dr. Omid Bowden Potassium [Moles/Vol] 3.3 mmol/L Critically low 3.5-5.1 [facility] Comment on above: Performed By: #### L IPID, BMP #### [facility] [address] [place] [address] Dr. Omid Bowden Sodium [Moles/Vol] 137 mmol/L Normal 136-145 [facility] Comment on above: Performed By: #### L IPID, BMP #### [facility] [address] [address] [address] Omid Bowden Urea nitrogen [Mass/Vol] 20.0 mg/dL Critically high 7.0-18.0 [facility] Comment on above: Performed By: #### L IPID, BMP #### [facility] [address] [address] [address] Omid Bowden Urea nitrogen/Creatinine [Mass ratio] 20.2 mg/mg Normal [facility] Comment on above: Performed By: #### L IPID, BMP #### [facility] [address] [address] [address] Omid Bowden URINE MICROSCOPIC ONLYon BACTERIA TRACE Abnormal NONE SEEN [facility] Comment on above: Performed By: #### U MICRO, ERUR ####[facility] [address] [address]Dr. Omid Bowden Bacteria identified Cx Nom (U) INDICATED Normal [facility] Comment on above: Performed By: #### U MICRO, ERUR ####[facility] [address] [address]Dr. Omid Bowden CAST NONE SEEN Normal NONE SEEN [facility] Comment on above: Performed By: #### U MICRO, ERUR ####[facility] [address] [address]Dr. Omid Bowden Crystals LM Nom (Urine sed) NONE SEEN Normal NONE SEEN [facility] Comment on above: Performed By: #### U MICRO, ERUR ####[facility] [address] [address]Dr. Omid Bowden Epithelial cells LM Ql (Urine sed) FEW Abnormal NONE SEEN /RARE [facility] Comment on above: Performed By: #### U MICRO, ERUR ####[facility] [address] [address]Dr. Omid Bowden MUCOUS NONE SEEN Normal NONE SEEN [facility] Comment on above: Performed By: #### U MICRO, ERUR ####[facility] [address] [address]DrMedardo Bowden RBC 0-2 Normal 0-2 [facility] Comment on above: Performed By: #### U MICRO, ERUR ####[facility] [address] [place], [place] [address]Fy. Omid Bowden WBC 20-50 Abnormal NONE SEEN [facility] Comment on above: Performed By: #### U MICRO, ERUR ####[facility] [address] [place], [place] [address]Wx. Omid Bowden XR CHEST 1 Von 08-14-2022 [...] [place]AIL[place] Date: 2022-08-14 00:46 Normal [facility] Covid-19 PCR (CVDTBH)on SARS-CoV-2 (COVID-19) RNA MARII+probe Ql (Unsp spec) Not detected Normal NOT DETECTED [facility] Comment on above: Result Comment: When [...] for this test is supported by the Guest Relations Representative of Health and Human Service's declaration [...] used). Performed By: #### C VDTBH #### [facility] [address] [place], [place] [address] Dr. Omid Bowden MG MAMM RT DIAG FUon 022 MG MAMM RT DIAG FU Patient: HARMAN MCLEOD Exam Date: 08/08/2022 : 1940 Gender:F Ordering : DR MATEUS PERRY . Admission #: [id number] Family : Order #: [id number] CLICK HERE TO VIEW EXAM RADIOLOGY REPORT [...] uterine cancer at age 39. LOCATION: [facility] BREAST COMPOSITION: Scattered areas fibroglandular density. [...] M.D. on 08/08/2022 at 15:28 Normal [facility] PROF CHEM 8 (BAS METB)on Anion gap [Moles/Vol] 9.3 mmol/L Normal [facility] Comment on above: Performed By: #### B MP #### [facility] [address] [place] [address] Dr. Omid Bowden Calcium [Mass/Vol] 8.1 mg/dL Critically low 8.5-10.1 [facility] Comment on above: Performed By: #### B MP #### [facility] [address] [place] [address] Dr. Omid Bowden Chloride [Moles/Vol] 100 mmol/L Normal 98-107 [facility] Comment on above: Performed By: #### B MP #### [facility] [address] [address] [address] Omid Bowden CO2 [Moles/Vol] 31.9 mmol/L Normal 21.0-32.0 [facility] Comment on above: Performed By: #### B MP #### [facility] [address] [address] [address] Omid Bowden Creatinine [Mass/Vol] 1.25 mg/dL Critically high 0.55-1.02 [facility] Comment on above: Performed By: #### B MP #### [facility] [address] [place] [address] Dr. Omid Bowden EGFR-AF KOSOVAN 50 mL/min/1.73m2 Critically low >=60 [facility] Comment on above: Performed By: #### B MP #### [facility] [address] [place] [address] Dr. Omid Bowden EGFR-NON AF KOSOVAN 41 mL/min/1.73m2 Critically low >=60 [facility] Comment on above: Performed By: #### B MP #### [facility] [address] [address] [address] Omid Bowden Glucose [Mass/Vol] 215 mg/dL Critically high 74-106 [facility] Comment on above: Performed By: #### B MP #### [facility] [address] [address] [address] Omid Bowden Potassium [Moles/Vol] 3.2 mmol/L Critically low 3.5-5.1 [facility] Comment on above: Performed By: #### B MP #### [facility] [address] [address] [address] Omid Bowden Sodium [Moles/Vol] 138 mmol/L Normal 136-145 [facility] Comment on above: Performed By: #### B MP #### [facility] [address] [place], [place] [address] Dr. Omid Bowden Urea nitrogen [Mass/Vol] 32.0 mg/dL Critically high 7.0-18.0 [facility] Comment on above: Performed By: #### B MP #### [facility] [address] [place], [place] [address] Dr. Omid Bowden Urea nitrogen/Creatinine [Mass ratio] 25.6 mg/mg Normal [facility] Comment on above: Performed By: #### B MP #### [facility] [address] [place], [place] [address] Dr. Omid Bowden US BREAST RIGHT LIMITEDon US BREAST RIGHT LIMITED Patient: HARMAN MCLEOD Exam Date: 08/08/2022 : 1940 Gender:F Ordering : DR MATEUS PERRY . Admission #: [id number] Family : Order #: [id number] CLICK HERE TO VIEW EXAM RADIOLOGY REPORT [...] uterine cancer at age 39. LOCATION: [facility] BREAST COMPOSITION: Scattered areas fibroglandular density. [...] George M.D. on 08/08/2022 at 15:28 Normal [facility] CALCIUMon 08-02-2022 Calcium [Mass/Vol] 8.9 mg/dL Normal 8.5-10.1 [facility] Comment on above: Performed By: #### H GB #### [facility] [address] [address] [address] Omid Bowden CREATININEon 08-02-2022 Creatinine [Mass/Vol] 1.19 mg/dL Critically high 0.55-1.02 [facility] Comment on above: Performed By: #### H GB #### [facility] [address] [address] [address] Omid Bowden EGFR-AF KOSOVAN 53 mL/min/1.73m2 Critically low >=60 [facility] Comment on above: Performed By: #### H GB #### [facility] [address] [address] [address] Omid Bowden EGFR-NON AF KOSOVAN 44 mL/min/1.73m2 Critically low >=60 [facility] Comment on above: Performed By: #### H GB #### [facility] [address] [address] [address] Omid Bowden MG MAMM SCREEN 3D DAVID CADon 07-19-2022 MG MAMM SCREEN 3D DAVID CAD Patient: HARMAN MCLEOD Exam Date: 07/19/2022 : 1940 Gender:F Ordering : DR MATEUS PERRY . Admission #: [id number] Family : Order #: [id number] CLICK HERE TO VIEW EXAM RADIOLOGY REPORT [...] uterine cancer at age 39. LOCATION: [facility] BREAST COMPOSITION: Scattered areas fibroglandular density. [...] Bauman MD on 07/20/2022 at 07:33 Normal [facility] XR DEXA BONE DENSITYon 07-19 XR DEXA [...] by: JUDSON BAUMAN Date: 2022-07-19 20:17 Normal [facility] CALCIUM, IONIC (POC)on 06-28 POC Ionized Calcium 1.21 mmol/L 1.15 - 1 .33 mmol/L [facility] (POC)on 06-28-2022 Chloride [Moles/Vol] 103 mmol/L 98 - 10 7 mmol/L [facility] [employer] Creatinine W/GFR Point of Ca reon 06-28-2022 Creatinine [Mass/Vol] 0.93 mg/dL 0.51 - 1.19 mg/dL [facility] eGFR, POC mL/min/1.73 m2 [facility] Comment on above: Effective Jun 13, [...] mmol/L High 0.56 - 1.39 mmol/L [facility] No Panel Informationon 06-28 Interpretation and review of laboratory results Abnormal [facility] POC Glucose Fingerstickon Glucose [Mass/Vol] 135 mg/dL High 65 - 105 mg/dL [facility] Interpretation and review of laboratory results Abnormal [facility] POCT Glucoseon 06-28-2022 Glucose [Mass/Vol] 147 mg/dL High 74 - 100 mg/dL [facility] POCT urea (BUN)on 06-28-2022 Urea nitrogen [Mass/Vol] 20 mg/dL 8 - 26 mg/dL [facility] POTASSIUM (POC)on 06-28-2022 Potassium [Moles/Vol] 3.7 mmol/L 3.5 - 4.5 mmol/L [facility] SODIUM (POC)on 06-28-2022 Sodium [Moles/Vol] 141 mmol/L 138 - 146 mmol/L [facility] PROF CHEM 8 (BAS METB)on Anion gap [Moles/Vol] 9.0 mmol/L Normal [facility] Comment on above: Performed By: #### B MP ####[facility] [address] [id number]. Omid Bowden Calcium [Mass/Vol] 9.0 mg/dL Normal 8.5-10.1 [facility] Comment on above: Performed By: #### B MP ####[facility] [address] [place], [place] [address]EmMedardo Bowden Chloride [Moles/Vol] 98 mmol/L Normal 98-107 [facility] Comment on above: Performed By: #### B MP ####[facility] [address] [place], [place] [address]Dr. Omid Bowden CO2 [Moles/Vol] 33.2 mmol/L Critically high 21.0-32.0 [facility] Comment on above: Performed By: #### B MP ####[facility] [address] [place], [place] [address]Dr. Omid Bowden Creatinine [Mass/Vol] 1.32 mg/dL Critically high 0.55-1.02 [facility] Comment on above: Performed By: #### B MP ####[facility] [address] [place], [place] [address]Dr. Omid Bowden EGFR-AF KOSOVAN 47 mL/min/1.73m2 Critically low >=60 [facility] Comment on above: Performed By: #### B MP ####[facility] [address] [place], [place] [address]Dr. Omid Bowden EGFR-NON AF KOSOVAN 39 mL/min/1.73m2 Critically low >=60 [facility] Comment on above: Performed By: #### B MP ####[facility] [address] [place], [place] [address]Dr. Omid Bowden Glucose [Mass/Vol] 220 mg/dL Critically high 74-106 [facility] Comment on above: Performed By: #### B MP ####[facility] [address] [place], [place] [address]DrMedardo Bowden Potassium [Moles/Vol] 3.2 mmol/L Critically low 3.5-5.1 [facility] Comment on above: Performed By: #### B MP ####[facility] [address] [place], [place] [address]Dr. Omid Bowden Sodium [Moles/Vol] 137 mmol/L Normal 136-145 [facility] Comment on above: Performed By: #### B MP ####[facility] [address] [place], [place] [address]DrMedardo Bowden Urea nitrogen [Mass/Vol] 31.0 mg/dL Critically high 7.0-18.0 [facility] Comment on above: Performed By: #### B MP ####[facility] [address] [place], [place] [address]Pf. Omid Bowden Urea nitrogen/Creatinine [Mass ratio] 23.5 mg/mg Normal [facility] Comment on above: Performed By: #### B MP ####[facility] [address] [place], [place] [address]Gq. Omid Bowden ECHOCARDIO M/2D COMPLETEon 0 04-12-2022 ECHOCARDIO M/2D COMPLETE Patient: HARMAN MCLEOD Exam Date: 04/12/2022 : 1940 Gender:F Ordering : SONALI MCKINNEY [facility] Admission #: [id number] Family : Order #: [id number] CLICK HERE TO VIEW EXAM ECHOCARDIOGRAM REPORT [...] Keyes M.D. on 04/12/2022 at 19:15 Normal [facility] PROF CHEM 8 (BAS METB)on Anion gap [Moles/Vol] 12.4 mmol/L Normal [facility] Comment on above: Performed By: #### B MP ####[facility] [address] [address]Dr. Omid Bowden Calcium [Mass/Vol] 9.1 mg/dL Normal 8.5-10.1 [facility] Comment on above: Performed By: #### B MP ####[facility] [address] [address]Dr. Omid Bowden Chloride [Moles/Vol] 100 mmol/L Normal 98-107 [facility] Comment on above: Performed By: #### B MP ####[facility] [address] [address]Dr. Omid Bowden CO2 [Moles/Vol] 33.0 mmol/L Critically high 21.0-32.0 [facility] Comment on above: Performed By: #### B MP ####[facility] [address] [address]Dr. Omid Bowden Creatinine [Mass/Vol] 1.15 mg/dL Critically high 0.55-1.02 [facility] Comment on above: Performed By: #### B MP ####[facility] [address] [address]Dr. Omid Bowden EGFR-AF KOSOVAN 55 mL/min/1.73m2 Critically low >=60 [facility] Comment on above: Performed By: #### B MP ####[facility] [address] [address]Dr. Omid Bowden EGFR-NON AF KOSOVAN 46 mL/min/1.73m2 Critically low >=60 [facility] Comment on above: Performed By: #### B MP ####[facility] [address] [address]Dr. Omid Bowden Glucose [Mass/Vol] 167 mg/dL Critically high 74-[address] [facility] Comment on above: Performed By: #### B MP ####[facility] [address] [address]Dr. Omid Bowden Potassium [Moles/Vol] 3.4 mmol/L Critically low 3.5-5.1 [facility] Comment on above: Performed By: #### B MP ####[facility] [address] [address]Dr. Omid Bowden Sodium [Moles/Vol] 142 mmol/L Normal 136-145 [facility] Comment on above: Performed By: #### B MP ####[facility] [address] [address]Dr. Omid Bowden Urea nitrogen [Mass/Vol] 23.0 mg/dL Critically high 7.0-18.0 [facility] Comment on above: Performed By: #### B MP ####[facility] [address] [address]Dr. Omid Bowden Urea nitrogen/Creatinine [Mass ratio] 20.0 mg/mg Normal [facility] Comment on above: Performed By: #### B MP ####[facility] [address] [place], [place] [address]Dr. Omid Bowden SYMPTOMATIC COVID-19 ANTIGEN on 03-16-2022 EUA Statement SEE BELOW Normal [facility] Comment on above: Result Comment: This [...] Performed By: #### L IPID, BMP #### [facility] [address] [place] [address] Dr. Omid Bowden SARS-CoV-2 (COVID-19) RNA MARII+probe Ql (Unsp spec) Positive Critically abnormal NEGATIVE [facility] Comment on above: Performed By: #### L IPID, BMP #### [facility] [facility] [address] [place] [address] Dr. Omid Bowden HEMOGLOBINon 03-15-2022 Hemoglobin (Bld) [Mass/Vol] 12.3 g/dL Normal 12.0-16.0 [facility] Comment on above: Performed By: #### H GB #### [facility] [address] [place] [address] Dr. Omid Bowden BNPon 02-15-2022 Natriuretic peptide B (Bld) [Mass/Vol] 598.0 pg/mL Normal <=1,800.0 [facility] Comment on above: Performed By: #### L IPID, BMP #### [facility] [address] [place] [address] Dr. Omid Bowden PROF CHEM 8 (BAS METB)on Anion gap [Moles/Vol] 11.9 mmol/L Normal [facility] Comment on above: Performed By: #### L IPID, BMP #### [facility] [address] [place] [address] Dr. Omid Bowden Calcium [Mass/Vol] 9.1 mg/dL Normal 8.5-10.1 [facility] Comment on above: Performed By: #### L IPID, BMP #### [facility] [address] [place] [address] Dr. Omid Bowden Chloride [Moles/Vol] 98 mmol/L Normal 98-107 [facility] Comment on above: Performed By: #### L IPID, BMP #### [facility] [address] [address] [address] Omid Bowden CO2 [Moles/Vol] 33.2 mmol/L Critically high 21.0-32.0 [facility] Comment on above: Performed By: #### L IPID, BMP #### [facility] [address] [address] [address] Omid Bowden Creatinine [Mass/Vol] 1.28 mg/dL Critically high 0.55-1.02 [facility] Comment on above: Performed By: #### L IPID, BMP #### [facility] [address] [address] [address] Omid Bowden EGFR-AF KOSOVAN 49 mL/min/1.73m2 Critically low >=60 [facility] Comment on above: Performed By: #### L IPID, BMP #### [facility] [address] [address] [address] Omid Bowden EGFR-NON AF KOSOVAN 40 mL/min/1.73m2 Critically low >=60 [facility] Comment on above: Performed By: #### L IPID, BMP #### [facility] [address] [address] [address] Omid Bowden Glucose [Mass/Vol] 182 mg/dL Critically high 74-[address] [facility] Comment on above: Performed By: #### L IPID, BMP #### [facility] [address] [address] [address] Omid Bowden Potassium [Moles/Vol] 3.1 mmol/L Critically low 3.5-5.1 [facility] Comment on above: Performed By: #### L IPID, BMP #### [facility] [address] [address] [address] Omid Bowden Sodium [Moles/Vol] 140 mmol/L Normal 136-145 [facility] Comment on above: Performed By: #### L IPID, BMP #### [facility] [address] [address] [address] Omid Bowden Urea nitrogen [Mass/Vol] 30.0 mg/dL Critically high 7.0-18.0 [facility] Comment on above: Performed By: #### L IPID, BMP #### [facility] [address] [place], [place] [address] Dr. Omid Bowden Urea nitrogen/Creatinine [Mass ratio] 23.4 mg/mg Normal [facility] Comment on above: Performed By: #### L IPID, BMP #### [facility] [address] [place], [place] [address] Dr. Omid Bowden XR CHEST 2 Von [...] ALFONSO GEORGE Date: 2022-02-09 11:53 Normal [facility] No Panel Informationon 12-13 [employer] POCT Glucoseon 12-13-2021 Glucose [Mass/Vol] 196 mg/dL High 74 - 100 mg/dL [employer] Interpretation and review of laboratory results Abnormal [employer] POTASSIUM (POC)on 12-13-2021 Potassium [Moles/Vol] 3.7 mmol/L 3.5 - 4.5 mmol/L [employer] TYPE AND SCREENon 12-10-2021 ABO/Rh Positive [employer] Arm Band Number BE [id number] [employer] [facility] lt Expiration Date 12/16/2021,2359 [employer] EKG 12 leadOrdered By: Dennis Garcia on 12-07-2021 Atrial Rate 66 BPM [employer] Work Phone: P [place] 67 degrees [employer] Work Phone: P-R Interval 126 ms [employer] Work Phone: Q-T Interval 466 ms [employer] Work Phone: QRS Duration [address] [facility] Work Phone: QTc Calculation (Bazett) [address] [facility] Work Phone: R [place] [address] [facility] Work Phone: T [place] [address] [facility] Work Phone: Ventricular Rate 66 BPM [facility] Work Phone: [facility] Work Phone: EKG 12 leadon 12-07-2021 [...] wave inversion now evident in Inferior leads [facility] Work Phone: CBC auto differentialon 11-10 Absolute Eos # 0.13 [facility] th Absolute Immature Granulocyte 0.[address] [facility] Absolute Lymph # 3.18 [facility] alth Absolute Stokes # 1.22 High [facility] lt Basophils (Bld) [#/Vol] 0.05 10*3/uL [facility] Basophils/100 WBC (Bld) 0 % 0 - 2 % [facility] Eosinophils/100 WBC (Bld) 1 % 1 - 4 % [facility] Hematocrit (Bld) [Volume fraction] 38.4 % 36.3 - 47.1 % [facility] Hemoglobin.gastrointes tinal spec 1 Ql (Stl) 12.2 g/dL 11.9 - 15.1 g/dL [facility] Immature granulocytes/100 WBC (Bld) 1 % High [address] [facility] Interpretation and review of laboratory results Abnormal [facility] Lymphocytes/100 WBC (Bld) 25 % 24 - 43 % [facility] MCH (RBC) [Entitic mass] 29.9 pg 25.2 - 33.[address] [facility] MCHC (RBC) [Mass/Vol] 31.8 g/dL 28.4 - 34.8 g/dL [facility] MCV (RBC) [Entitic vol] 94.1 fL 82.6 - 102.[address] [facility] Monocytes/100 WBC (Bld) 10 % 3 - 12 % [facility] NRBC Automated 0.0 0.0 per [address] [facility] Platelet distribution width (Bld) [Ratio] 14.5 % High 11.8 - 14.4 % [facility] Platelet mean volume (Bld) [Entitic vol] 10.1 fL 8.1 - 13.[address] [facility] Platelets (Bld) [#/Vol] 266 10*3/uL [facility] RBC (Bld) [#/Vol] 4.08 10*6/uL 3.95 - 5.1 1 m/uL [facility] RBC (Bld) [#/Vol] ANISOCYTOSIS PRESENT [facility] Segmented neutrophils/100 WBC (Bld) 63 % 36 - 65 % [facility] Segs Absolute 7.88 [facility] WBC (Bld) [#/Vol] 12.6 10*3/uL High [facility] Comprehensive Metabolic Pane l w/ Reflex to MGon 12-06-2021 Albumin [Mass/Vol] 3.7 g/dL 3.5 - 5.2 g/dL [facility] Albumin/Globulin [Mass ratio] 1.1 {ratio} [facility] ALP (Bld) [Catalytic activity/Vol] 93 U/L 35 - 104 U/L [facility] ALT [Catalytic activity/Vol] 12 U/L 5 - 33 U/L [facility] Anion gap [Moles/Vol] 14 mmol/L 9 - 17 mmol/L [facility] AST [Catalytic activity/Vol] 12 U/L <[address] [facility] Bilirubin [Mass/Vol] 0.25 mg/dL Low 0.3 - 1 .2 mg/dL [facility] Calcium [Mass/Vol] 9.1 mg/dL 8.6 - 10. 4 mg/dL [facility] Chloride [Moles/Vol] 95 mmol/L Low 98 - 10 7 mmol/L [facility] CO2 [Moles/Vol] 30 mmol/L 20 - 31 mmol/L [facility] Creatinine [Mass/Vol] 1.07 mg/dL High 0.50 - 0.90 mg/dL [facility] Free PSA/Total PSA [Mass fraction] 7.2 g/dL 6.4 - 8.3 g/dL [facility] GFR 60 mL/min Low >60 [facility] GFR Non- 49 mL/min Low >[address] [facility] GFR/1.73 sq M.predicted MDRD (S/P/Bld) [Vol rate/Area] [facility] Comment on above: Average GFR for 70 o r more years old: 75 mL/min/1.73sq m Chronic Kidney Disease: <60 mL/min/1.73sq m Kidney failure: <15 mL/min/1.73sq m eGFR calculated using average adult body mass. Additional eGFR calculator available at: http://www.[employer]/Ebyline_crcl_2011.htm Glucose [Mass/Vol] 188 mg/dL High 70 - 99 mg/dL [facility] Interpretation and review of laboratory results Abnormal [facility] Potassium [Moles/Vol] 3.3 mmol/L Low 3.7 - 5.3 mmol/L [facility] Sodium [Moles/Vol] 139 mmol/L 135 - 144 mmol/L [facility] Urea nitrogen (BldV) [Mass/Vol] 22 mg/dL 8 - 23 mg/dL [facility] Magnesiumon 12-06-2021 Magnesium [Mass/Vol] 1.6 mg/dL 1.6 - 2 .6 mg/dL [facility] No Panel Informationon 12-06 No acute process. [facility] EXAMINATION: TWO XRAY VIEWS [...] The osseous structures are without acute process. [facility] Kael Freeman MD - [...] without acute process. IMPRESSION: No acute process. [employer] Phone: Radiology Study observation (narrative) [employer] Phone: No Panel InformationOrdered By: Kael Freeman on 12-06-2021 [employer] Phone: Creatinine W/GFR Point of Ca reOrdered By: Kin Abarca on 06-15-2021 Creatinine [Mass/Vol] 0.89 mg/dL 0.51 - 1.19 mg/dL [employer] Phone: GFR Non- >60 >60 mL/min [employer] Phone: GFR/1.73 sq M.predicted MDRD (S/P/Bld) [Vol rate/Area] mL/min/{1.73_m2} >60 mL/min [employer] Phone: GFR/1.73 sq M.predicted MDRD (S/P/Bld) [Vol rate/Area] [employer] Phone: Comment on above: Average GFR for 70 o r more years old: 75 mL/min/1.73sq m Chronic Kidney Disease: <60 mL/min/1.73sq m Kidney failure: <15 mL/min/1.73sq m eGFR calculated using average adult body mass. Additional eGFR calculator available at: http://www.[employer].com/multiple_crcl_2012.htm No Panel InformationOrdered By: Kin Abarca on 06-15-2021 [employer] Phone: POC Glucose FingerstickOrder ed By: Kin Abarca on 06-15-2021 Glucose [Mass/Vol] 163 mg/dL High 65 - 105 mg/dL [employer] Phone: Interpretation and review of laboratory results Abnormal [employer] Phone: [employer] Phone: POCT GlucoseOrdered By: Kin Abarca on 06-15-2021 Glucose [Mass/Vol] 186 mg/dL High 74 - 100 mg/dL [employer] Phone: Interpretation and review of laboratory results Abnormal [employer] Phone: POTASSIUM (POC)Ordered By: Yuriy Abarca on 06-15-2021 Potassium [Moles/Vol] 4.5 mmol/L 3.5 - 4.5 mmol/L [employer] Phone: EKG 12 leadOrdered By: Antoni Burks on 05-13-2021 Atrial Rate 67 BPM [employer] Phone: P [place] 58 degrees [employer] Phone: P-R Interval 130 ms [employer] Phone: Q-T Interval 504 ms [employer] Phone: QRS Duration 144 ms [employer] Phone: QTc Calculation (Bazett) 532 ms [employer] Phone: R [place] 20 degrees [employer] Phone: T [place] 117 degrees [employer] Phone: Ventricular Rate 67 BPM [employer] Work Phone: Sinus rhythm with Premature atrial complexes Left bundle branch block Abnormal ECG No previous ECGs available [employer] Phone: Virgilio, Mhpn Incoming E kg Results From [employer] - 05/13/2021 1:30 PM EDT Sinus rhythm with Premature atrial complexes Left bundle branch block Abnormal ECG No previous ECGs available [employer] Phone: [employer] Phone: Basic Metabolic Panel w/ Ref alexis to MGOrdered By: Latonia Burks on 05-12-2021 Anion gap [Moles/Vol] 13 mmol/L 9 - 17 mmol/L [employer] Phone: Calcium [Mass/Vol] 9.4 mg/dL 8.6 - 10. 4 mg/dL [employer] Phone: Chloride [Moles/Vol] 102 mmol/L 98 - 10 7 mmol/L [employer] Phone: CO2 [Moles/Vol] 28 mmol/L 20 - 31 mmol/L [employer] Phone: Creatinine [Mass/Vol] 0.94 mg/dL High 0.50 - 0.90 mg/dL [employer] Phone: GFR >60 >60 mL/min [employer] Phone: GFR Non- 58 mL/min Low >60 [employer] Phone: GFR/1.73 sq M.predicted MDRD (S/P/Bld) [Vol rate/Area] [employer] Phone: Comment on above: Average GFR for 70 o r more years old: 75 mL/min/1.73sq m Chronic Kidney Disease: <60 mL/min/1.73sq m Kidney failure: <15 mL/min/1.73sq m eGFR calculated using average adult body mass. Additional eGFR calculator available at: http://www.[employer]/multiple_crcl_2012.htm GFR/1.73 sq M.predicted MDRD (S/P/Bld) [Vol rate/Area] NOT REPORTED [employer] Phone: Glucose [Mass/Vol] 119 mg/dL High 70 - 99 mg/dL [employer] Phone: Interpretation and review of laboratory results Abnormal [employer] Phone: Potassium [Moles/Vol] 4.0 mmol/L 3.7 - 5.3 mmol/L [employer] Phone: Sodium [Moles/Vol] 143 mmol/L 135 - 144 mmol/L [employer] Work Phone: Urea nitrogen (BldV) [Mass/Vol] 18 mg/dL 8 - 23 mg/dL [employer] Work Phone: Urea nitrogen/Creatinine (Bld) [Mass ratio] NOT REPORTED [employer] Work Phone: [employer] Work Phone: CBC auto differentialOrdered By: Latonia Burks on 05-12-2021 Absolute Eos # 0.26 [employer] [facility] Work Phone: Absolute Immature Granulocyte 0.04 [employer] Work Phone: Absolute Lymph # 3.26 [employer] [facility] Work Phone: Absolute Stokes # 0.84 [employer] Work Phone: Basophils (Bld) [#/Vol] 0.05 10*3/uL [employer] Work Phone: Basophils/100 WBC (Bld) 1 % 0 - 2 % [employer] Phone: Differential Type NOT REPORTED [employer] Phone: Eosinophils/100 WBC (Bld) 3 % 1 - 4 % [employer] Work Phone: Hematocrit (Bld) [Volume fraction] 36.9 % 36.3 - 47.1 % [employer] Phone: Hemoglobin.gastrointes tinal spec 1 Ql (Stl) 11.2 g/dL Low 11.9 - 15.1 g/dL [employer] Phone: Immature granulocytes/100 WBC (Bld) 0 % 0 [employer] Work Phone: Interpretation and review of laboratory results Abnormal [employer] Phone: Lymphocytes/100 WBC (Bld) 32 % 24 - 43 % [employer] Phone: MCH (RBC) [Entitic mass] 28.3 pg 25.2 - 33.5 pg [employer] Phone: MCHC (RBC) [Mass/Vol] 30.4 g/dL 28.4 - 34.8 g/dL [employer] Phone: MCV (RBC) [Entitic vol] 93.2 fL 82.6 - 102.9 fL [employer] Phone: Monocytes/100 WBC (Bld) 8 % 3 - 12 % [employer] Phone: NRBC Automated 0.0 0.0 per 100 WBC [employer] Phone: Platelet distribution width (Bld) [Ratio] 13.8 % 11.8 - 14.4 % [employer] Phone: Platelet Estimate NOT REPORTED [employer] Phone: Platelet mean volume (Bld) [Entitic vol] 9.5 fL 8.1 - 13.5 fL [employer] Phone: Platelets (Bld) [#/Vol] 310 10*3/uL [employer] Phone: RBC (Bld) [#/Vol] 3.96 10*6/uL 3.95 - 5.1 1 m/uL [employer] Phone: RBC (Bld) [#/Vol] NOT REPORTED [employer] Phone: Segmented neutrophils/100 WBC (Bld) 56 % 36 - 65 % [employer] Phone: Segs Absolute 5.70 [employer] Work Phone: WBC (Bld) [#/Vol] 10.2 10*3/uL [employer] Phone: WBC (Bld) [#/Vol] NOT REPORTED [employer] Phone: [employer] Phone: XR CHEST (2 VW)Ordered By: Joanie Burks on 05-12-2021 Senescent changes compatible with the age of the patient. No evidence of acute cardiopulmonary process. [employer] Phone: EXAMINATION: TWO XRA Y VIEWS OF [...] spine and visualized portions of the shoulders. [employer] Phone: Virgilio, Mhpn Incoming Radiant Results From [employer] - 05/12/2021 2:48 PM EDT EXAMINATION: [...] patient. No evidence of acute cardiopulmonary process. [employer] Phone: [employer] Phone: Cardiovascular Lab Reporton 08-21-2020 Cardiovascular Lab Report [facility] Patient Name: Lenin [facility] Berna MR #: [id number] Department of Physician: Jose Maria Keyes M.D. Division of Service Date: 08/20/2020 Cardiology Birthdate: 1940 Adult Cardiovascular Room #: [address] [place], [place] [address] Cardiovascular Laboratory Report INDICATION: The patient is [...] signed informed consent. She was brought to pathology laboratory aides teacher in a fasting state. The procedure was performed under conscious sedation. A transesophageal echocardiogram was performed by Dr. Marisol Khoury at baseline. Please refer to his dictation for details. The appendage measured a maximum of 16 mm in terms of ostial width. Using ultrasound guidance and micropuncture technique, access was obtained in the right common femoral vein and a 6-Filipino x 11 cm sheath was placed preclosure where the 6-Filipino ProGlide device was performed followed by advancement [...] was exchanged over that wire to the 14-Filipino Watchman access sheath, which was advanced to the left atrial cavity with no issues. The 6-Filipino angled pigtail catheter was advanced over the [...] Trans: (more content not included)... Normal The [facility] TYPE AND CROSSMATCHon 2019 ABO INTERPRETATION A Normal [facility] Comment on above: Performed By: #### [id number] #### [facility] [address] [place] [address], [facility] RH INTERPRETATION Positive Normal The [facility] Comment on above: Performed By: #### [id number] #### [facility] [address] [place] [address], [facility] Vital Signs Date Time Vital Sign Value Performing Clinician Facility 08-29-2024 10:01-0500 Body height 152.4 cm Peyman Brown DPM Work Phone: [facility] 08-29-2024 10:01-0500 Body mass index (BMI) [Ratio] 28.32 kg/m2 Peyman Brown DPM Work Phone: [facility] 08-29-2024 10:01-0500 Body weight 65.77 kg Peyman Brown DPM Work Phone: [facility] 08-29-2024 10:01-0500 Respiratory rate 16 /min Peyman Brown DPM Work Phone: [facility] 06-20-2024 10:140400 Body height 152.4 cm Peyman Brown DPM Work Phone: [facility] 06-20-2024 10:14-0400 Body mass index (BMI) [Ratio] 28.32 kg/m2 Peyman Brown DPM Work Phone: [facility] 06-20-2024 10:14-0400 Body weight 65.77 kg Peyman Brown DPM Work Phone: [facility] 06-20-2024 10:14-0400 Respiratory rate 18 /min Peyman Brown DPM Work Phone: [facility] 05-01-2024 10:180400 Body height 149.86 cm MD Mateus Perry Work Phone: [facility] 05-01-2024 10:18-0400 Body mass index (BMI) [Ratio] 30.2 kg/m2 MD Mateus Perry Work Phone: [facility] 05-01-2024 10:180400 Body temperature 97.8 [degF] MD Mateus Perry Work Phone: [facility] 05-01-2024 10:180400 Body weight 68.03 kg MD Mateus Perry Work Phone: [facility] 05-01-2024 10:18-0400 Diastolic blood pressure 72 mm[Hg] MD Mateus Perry Work Phone: [facility] 05-01-2024 10:18-0400 Heart rate 80 /min MD Mateus Perry Work Phone: [facility] 05-01-2024 10:18-0400 Respiratory rate 16 /min MD Mateus Perry Work Phone: [facility] 05-01-2024 10:18-0400 SaO2% (BldA) [Mass fraction] 98 % MD Mateus Perry Work Phone: [facility] 05-01-2024 10:18-0400 Systolic blood pressure 118 mm[Hg] MD Mateus Perry Work Phone: [facility] 04-24-2024 11:13-0400 Body height 149.86 cm MD Mateus Perry Work Phone: [facility] 04-24-2024 11:130400 Body mass index (BMI) [Ratio] 36.3 kg/m2 MD Mateus Perry Work Phone: [facility] 04-24-2024 11:13-0400 Body weight 81.64 kg MD Mateus Perry Work Phone: [facility] 04-24-2024 11:06-0400 Body temperature 98.8 [degF] MD Mateus Perry Work Phone: [facility] 04-24-2024 11:06-0400 Diastolic blood pressure 75 mm[Hg] MD Mateus Perry Work Phone: [facility] 04-24-2024 11:06-0400 Heart rate 97 /min MD Mateus Perry Work Phone: [facility] 04-24-2024 11:06-0400 Respiratory rate 20 /min MD Mateus Perry Work Phone: [facility] 04-24-2024 11:06-0400 Systolic blood pressure 118 mm[Hg] MD Mateus Perry Work Phone: [facility] 04-10-2024 10:30-0400 Body height 149.86 cm MD Mateus Perry Work Phone: [facility] 04-10-2024 10:30-0400 Body mass index (BMI) [Ratio] 36.3 kg/m2 MD Mateus Perry Work Phone: [facility] 04-10-2024 10:30-0400 Body weight 81.64 kg MD Mateus Perry Work Phone: [facility] 03-26-2024 09:51-0400 Body height 149.86 cm MD Mateus Perry Work Phone: [facility] 03-26-2024 09:51-0400 Body mass index (BMI) [Ratio] 36.3 kg/m2 MD Mateus Perry Work Phone: [facility] 03-26-2024 09:51-0400 Body weight 81.64 kg MD Mateus Perry Work Phone: [facility] 03-26-2024 09:36-0400 Body temperature 97.3 [degF] MD Mateus Perry Work Phone: [facility] 03-26-2024 09:36-0400 Diastolic blood pressure 61 mm[Hg] MD Mateus Perry Work Phone: [facility] 03-26-2024 09:36-0400 Heart rate 86 /min MD Mateus Perry Work Phone: [facility] 03-26-2024 09:36-0400 Respiratory rate 18 /min MD Mateus Perry Work Phone: [facility] 03-26-2024 09:36-0400 Systolic blood pressure 128 mm[Hg] MD Mateus Perry Work Phone: [facility] 06-20-2023 15:29-0400 Body height 154.9 cm Winnie Ramirez PA-C Work Phone: [facility] 06-20-2023 15:29-0400 Body temperature 97.39 [degF] Winnie Ramirez PA-C Work Phone: [facility] 06-20-2023 15:29-0400 Body weight 84.64 kg Winnie Ramirez PA-C Work Phone: [facility] 06-20-2023 15:29-0400 Diastolic blood pressure 55 mm[Hg] Winnie Ramirez PA-C Work Phone: [facility] 06-20-2023 15:29-0400 Heart rate 72 /min Winnie Ramirez PA-C Work Phone: [facility] 06-20-2023 15:29-0400 Respiratory rate 16 /min Winnie Ramirez PA-C Work Phone: [facility] 06-20-2023 15:29-0400 SaO2% (BldA) [Mass fraction] 96 % Winnie Ramirez PA-C Work Phone: [facility] 06-20-2023 15:29-0400 Systolic blood pressure 138 mm[Hg] Winnie Ramirez PA-C Work Phone: [facility] 06-01-2023 08:45-0400 Body height 154.94 cm Christiano Gonzales [employer] Other 06-01-2023 08:45-0400 Body mass index (BMI) [Ratio] 34.57 kg/m2 Christiano Janet [employer] Other 06-01-2023 08:45-0400 Body temperature 97.8 [degF] Christiano Janet [employer] Other 06-01-2023 08:45-0400 Body weight 83.01 kg Christiano Janet [employer] Other 06-01-2023 08:45-0400 Diastolic blood pressure 72 mm[Hg] Christiano Gonzales [employer] Other 06-01-2023 08:45-0400 SaO2% (BldA) [Mass fraction] 93 % Christiano Janet [employer] Other 06-01-2023 08:45-0400 Systolic blood pressure 130 mm[Hg] Christiano Gonzales [employer] Other 03-09-2023 08:45-0400 Body height 154.94 cm Millie Storm [employer] Other 03-09-2023 08:45-0400 Body mass index (BMI) [Ratio] 34.57 kg/m2 Millie Storm [employer] Other 03-09-2023 08:45-0400 Body temperature 96.8 [degF] Millie Storm [employer] Other 03-09-2023 08:45-0400 Body weight 83.01 kg Millie Storm [employer] Other 03-09-2023 08:45-0400 Diastolic blood pressure 56 mm[Hg] Millie Storm [employer] Other 03-09-2023 08:45-0400 SaO2% (BldA) [Mass fraction] 97 % Millie Storm [employer] Other 03-09-2023 08:45-0400 Systolic blood pressure 118 mm[Hg] Millie Storm [employer] Other 02-14-2023 10:19-0400 Body height 154.9 cm Wallace Stone MD Work Phone: [facility] 02-14-2023 10:19-0400 Body temperature 97.39 [degF] Wallace Stone MD Work Phone: [facility] 02-14-2023 10:19-0400 Body weight 84.46 kg Wallace Stone MD Work Phone: [facility] 02-14-2023 10:19-0400 Diastolic blood pressure 90 mm[Hg] Wallace Stone MD Work Phone: [facility] 02-14-2023 10:19-0400 Heart rate 102 /min Wallace Stone MD Work Phone: [facility] 02-14-2023 10:19-0400 Respiratory rate 16 /min Wallace Stone MD Work Phone: [facility] 02-14-2023 10:19-0400 SaO2% (BldA) [Mass fraction] 95 % Wallace Stone MD Work Phone: [facility] 02-14-2023 10:19-0400 Systolic blood pressure 151 mm[Hg] Wallace Stone MD Work Phone: [facility] 12-07-2022 14:00-0400 Body height 154.94 cm Millie Storm [employer] Other 12-07-2022 14:00-0400 Body mass index (BMI) [Ratio] 35.71 kg/m2 Millie Storm [employer] Other 12-07-2022 14:00-0400 Body temperature 97.6 [degF] Millie Storm [employer] Other 12-07-2022 14:00-0400 Body weight 85.73 kg Millie Storm [employer] Other 12-07-2022 14:00-0400 Diastolic blood pressure 68 mm[Hg] Millie Storm [employer] Other 12-07-2022 14:00-0400 SaO2% (BldA) [Mass fraction] 93 % Millie Storm [employer] Other 12-07-2022 14:00-0400 Systolic blood pressure 116 mm[Hg] Millie Storm [employer] Other 11-29-2022 11:53-0400 Diastolic blood pressure 54 mm[Hg] MD Mateus Perry Work Phone: [facility] [facility]29-2022 11:53-0400 Heart rate 67 /min MD Mateus Perry Work Phone: [facility] 11-29-2022 11:53-0400 Respiratory rate 16 /min MD Mateus Perry Work Phone: [facility] 11-29-2022 11:53-0400 SaO2% (BldA) [Mass fraction] 94 % MD Mateus Perry Work Phone: [facility] 11-29-2022 11:53-0400 Systolic blood pressure 141 mm[Hg] MD Mateus Perry Work Phone: [facility] 11-29-2022 09:13-0400 Body height 154.94 cm MD Mateus Perry Work Phone: [facility] 11-29-2022 09:13-0400 Body weight 81.64 kg MD Mateus Perry Work Phone: [facility] 11-23-2022 11:00-0400 Body height 154.94 cm Christiano Gonzales Other [employer] [facility] [employer] Other 11-23-2022 11:00-0400 Body temperature 97.8 [degF] Christiano Gonzales Other [employer] Other 11-23-2022 11:00-0400 Diastolic blood pressure 62 mm[Hg] Christiano Gonzales [employer] Other 11-23-2022 11:00-0400 SaO2% (BldA) [Mass fraction] 96 % Christiano Gonzales [employer] Other 11-23-2022 11:00-0400 Systolic blood pressure 110 mm[Hg] Christiano Gonzales [employer] Other 11-09-2022 13:44-0500 Body height 154.9 cm Wallace Stone MD Work Phone: [facility] 11-09-2022 13:44-0500 Body temperature 97.11 [degF] Wallace Stone MD Work Phone: [facility] 11-09-2022 13:44-0500 Body weight 84.73 kg Wallace Stone MD Work Phone: [facility] 11-09-2022 13:44-0500 Diastolic blood pressure 72 mm[Hg] Wallace Stone MD Work Phone: [facility] 11-09-2022 13:44-0500 Heart rate 66 /min Wallace Stone MD Work Phone: [facility] 11-09-2022 13:44-0500 Respiratory rate 18 /min Wallace Stone MD Work Phone: [facility] 11-09-2022 13:44-0500 SaO2% (BldA) [Mass fraction] 100 % Wallace Stone MD Work Phone: [facility] 11-09-2022 13:44-0500 Systolic blood pressure 142 mm[Hg] Wallace Stone MD Work Phone: [facility] 09-22-2022 11:24-0500 Body height 154.9 cm Wallace Stone MD Work Phone: [facility] 09-22-2022 11:24-0500 Body temperature 97.81 [degF] Wallace Stone MD Work Phone: [facility] 09-22-2022 11:24-0500 Body weight 84.82 kg Wallace Stone MD Work Phone: [facility] 09-22-2022 11:24-0500 Diastolic blood pressure 64 mm[Hg] Wallace Stone MD Work Phone: [facility] 09-22-2022 11:24-0500 Heart rate 70 /min Wallace Stone MD Work Phone: [facility] 09-22-2022 11:24-0500 Respiratory rate 16 /min Wallace Stone MD Work Phone: [facility] 09-22-2022 11:24-0500 SaO2% (BldA) [Mass fraction] 94 % Wallace Stone MD Work Phone: [facility] 09-22-2022 11:24-0500 Systolic blood pressure 137 mm[Hg] Wallace Stone MD Work Phone: [facility] 09-09-2022 15:06-0500 Blood Pressure Location Iliana DORANL [facility] [place] 09-09-2022 15:06-0500 Diastolic blood pressure 68 mm[Hg] Iliana NILL [facility] 09-09-2022 15:06-0500 Heart rate 68 /min Iliana NILL [facility] 09-09-2022 15:06-0500 Respiratory rate 16 /min Iliana DORANL [facility] 09-09-2022 15:06-0500 Systolic blood pressure 130 mm[Hg] Iliana NILL [facility] 06-28-2022 12:00-0400 SaO2% (BldA) [Mass fraction] 95 % Emma Plunkett MD Work Phone: [facility] 06-28-2022 11:50-0400 Body temperature 97.3 [degF] Emma Plunkett MD Work Phone: [facility] 06-28-2022 11:50-0400 Diastolic blood pressure 50 mm[Hg] Emma Plunkett MD Work Phone: [facility] 06-28-2022 11:50-0400 Heart rate 69 /min Emma Plunkett MD Work Phone: [facility] 06-28-2022 11:50-0400 Respiratory rate 16 /min Emma Plunkett MD Work Phone: [facility] 06-28-2022 11:50-0400 Systolic blood pressure 115 mm[Hg] Emma Plunkett MD Work Phone: [facility] 06-28-2022 07:36-0400 Body height 154.9 cm Emma Plunkett MD Work Phone: [facility] 06-28-2022 07:36-0400 Body mass index (BMI) [Ratio] 34.58 kg/m2 Emma Plunkett MD Work Phone: [facility] 06-28-2022 07:36-0400 Body weight 83.01 kg Emma Plunkett MD Work Phone: [facility] 12-13-2021 15:45-0400 Body temperature 97 [degF] Emma Plunkett MD Work Phone: [facility] [employer] 12-13-2021 15:45-0400 Diastolic blood pressure 96 mm[Hg] Emma Plunkett MD Work Phone: [facility] [employer] 12-13-2021 15:45-0400 Heart rate 65 /min Emma Plunkett MD Work Phone: [facility] 12-13-2021 15:45-0400 Respiratory rate 14 /min Emma Plunkett MD Work Phone: [facility] [employer] 12-13-2021 15:45-0400 SaO2% (BldA) [Mass fraction] 94 % Emma Plunkett MD Work Phone: [facility] [employer] 12-13-2021 15:45-0400 Systolic blood pressure 113 mm[Hg] Emma Plunkett MD Work Phone: [facility] [employer] 12-13-2021 09:46-0400 Body height 154.9 cm Emma Plunkett MD Work Phone: [facility] [employer] 12-13-2021 09:46-0400 Body mass index (BMI) [Ratio] 36.09 kg/m2 Emma Plunkett MD Work Phone: [facility] 12-13-2021 09:46-0400 Body weight 86.64 kg Emma Plunkett MD Work Phone: [facility] 12-06-2021 14:46-0400 Body height 154.[address] 12-06-2021 14:46-0400 Body mass index (BMI) [Ratio] 36.09 kg/m2 [address] 12-06-2021 14:46-0400 Body temperature 96.4 [degF] [address] 12-06-2021 14:46-0400 Body weight 86.[address] 12-06-2021 14:46-0400 Diastolic blood pressure 67 mm[Hg] [address] 12-06-2021 14:46-0400 Heart rate 62 /min [address] 12-06-2021 14:46-0400 Respiratory rate 20 /min [address] 12-06-2021 14:46-0400 SaO2% (BldA) [Mass fraction] 97 % [address] 12-06-2021 14:46-0400 Systolic blood pressure 153 mm[Hg] [address] 06-15-2021 10:14-0400 Body temperature 97.81 [degF] Kin Abarca MD Work Phone: [facility] [employer] Work Phone: 06-15-2021 10:14-0400 Diastolic blood pressure 58 mm[Hg] Kin Abarca MD Work Phone: [facility] [employer] Work Phone: 06-15-2021 10:14-0400 Heart rate 61 /min Kin Abarca MD Work Phone: [employer] Work Phone: 06-15-2021 10:14-0400 Respiratory rate 14 /min Kin Abarca MD Work Phone: [employer] Work Phone: 06-15-2021 10:14-0400 SaO2% (BldA) [Mass fraction] 96 % Kin Abarca MD Work Phone: [employer] Work Phone: 06-15-2021 10:14-0400 Systolic blood pressure 113 mm[Hg] Kin Abarca MD Work Phone: [employer] Work Phone: 06-15-2021 08:24-0400 Body height 154.9 cm Kin Abarca MD Work Phone: [employer] Work Phone: 06-15-2021 08:24-0400 Body mass index (BMI) [Ratio] 34.96 kg/m2 Kin Abarca MD Work Phone: [employer] Work Phone: 06-15-2021 08:24-0400 Body weight 83.92 kg Kin Abarca MD Work Phone: [employer] Phone: 05-12-2021 12:53-0400 Body height 154.9 cm [facility] [employer] Phone: 05-12-2021 12:53-0400 Body mass index (BMI) [Ratio] 35.52 kg/m2 [facility] [employer] Work Phone: 05-12-2021 12:53-0400 Body temperature 96.8 [degF] [facility] [employer] Phone: 05-12-2021 12:53-0400 Body weight 85.28 kg [facility] 1 [employer] Phone: 05-12-2021 12:53-0400 Diastolic blood pressure 66 mm[Hg] [facility] [employer] Work Phone: 05-12-2021 12:53-0400 Heart rate 57 /min [facility] 1 [employer] Phone: 05-12-2021 12:53-0400 Respiratory rate 18 /min [facility] 1 [employer] Work Phone: 05-12-2021 12:53-0400 SaO2% (BldA) [Mass fraction] 96 % [facility] 1 [employer] Work Phone: 05-12-2021 12:53-0400 Systolic blood pressure 150 mm[Hg] [facility] 1 [employer] Work Phone: Encounters Encounter Date Encounter Type Care Provider Facility Start: 09-02-[address] [facility] Start: 08-29-2024 End: 08-29-2024 Contract Liveheet Peyman Hensley DPM Work Phone: [facility] Start: 08-29-2024 End: 08-29-2024 Contract Live[employer] Peyman Hensley DPM Work Phone: [facility] Start: 08-29-2024 Encounter for preprocedural cardiovascular examination 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 Start: 08-12-[address] [facility] Start: 08-12-2024 End: 08-12-[address] [facility] Start: 07-17-2024 End: 07-17-2024 ambulatory [facility] Start: 07-10-[address] [facility] Start: 07-10-2024 End: 07-10-[address] [facility] Start: 07-02-2024 End: 07-02-[address] [facility] Start: 06-20-2024 End: 06-20-2024 Bamboo flowsheet Peyman [...] underlying condition with diabetic polyneuropathy, 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 [facility] insulin use (CMS/HCC); Pain due to onychomycosis of toenails of both feet Start: 06-12-2024 End: 06-12-2024 ambulatory [facility] Start: 05-27-2024 End: 05-27-2024 ambulatory CHERYL FARIA [facility] Start: 05-01-2024 End: 05-01-2024 ambulatory MD Mateus Perry Work Phone: [facility] Work Phone: Start: 05-01-2024 End: 05-01-2024 Patient encounter procedure MD Mateus Perry Work Phone: [facility] Work Phone: Start: 04-24-2024 End: 04-24-2024 ambulatory MD Mateus Perry Work Phone: [facility] Work Phone: Start: 04-24-2024 End: 04-24-2024 Discharged Recurring MD Mateus Perry Work Phone: [facility] [place] Work Phone: Start: 04-09-2024 End: 04-09-2024 Patient encounter procedure MD Mateus Perry Work Phone: [facility] [place] Work Phone: Start: 04-09-2024 End: 04-09-2024 ambulatory MD Mateus Perry Work Phone: [place] Work Phone: Start: 03-26-2024 Registered Recurring MD Yvonne Perry Work Phone: [facility] [place] Work Phone: Start: 06-20-2023 End: 06-20-2023 ambulatory WINNIE GUZMÁN Facility:[facility] Start: 06-20-2023 End: 06-20-2023 ambulatory Winnie Guzmán PA-C Work Phone: Hematology/Oncology Comment on above: 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, estrogen receptor positive (HCC) (Primary Dx); Stage 3a chronic kidney disease (HCC) Start: 06-20-2023 End: 06-20-2023 Patient encounter procedure Winnie Guzmán PA-C Work Phone: [facility] Start: 06-01-2023 End: 06-01-2023 ambulatory Christiano Gonzales [employer] Other Start: 06-01-2023 Office outpatient vi sit 15 minutes Christiano Gonzales [facility] V[facility] Surgery Start: 04-06-2023 End: 04-07-2023 ambulatory MATEUS PERRY [facility] Start: 03-09-2023 End: 03-09-2023 ambulatory Millie Storm [employer] Other Start: 03-09-2023 Patient encounter procedure Millie Emeteroi [facility] V[facility] Surgery Start: 03-06-2023 End: 03-06-2023 ambulatory EMMA GARZA V [facility] Start: 02-14-2023 End: 02-14-2023 ambulatory WALLACE STONE Facility:[facility] Start: 02-14-2023 End: 02-14-2023 ambulatory Wallace Stone MD Work Phone: Hematology/Oncology Comment on above: 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, estrogen receptor positive (HCC) (Primary Dx); Rash; Other eczema; Stage 3a chronic kidney disease (HCC) Start: 02-14-2023 End: 02-14-2023 Patient encounter procedure Wallace Stone MD Work Phone: [facility] Start: 01-19-2023 End: 01-19-[address] MATEUS PERRY . Facility: Start: 12-08-2022 End: 12-08-2022 ambulatory Millie Storm [employer] Other Start: 12-08-2022 Telephone encounter Millie Storm [facility] Start: 12-07-2022 End: 12-07-2022 ambulatory Millie Storm [employer] Other Start: 12-07-2022 Patient encounter procedure Millie Emeterio [facility] Start: 11-29-2022 End: 11-29-2022 Admission to same day surgery center MD Mateus Perry Work Phone: [place] Work Phone: Start: 11-29-2022 End: 11-29-2022 ambulatory MD Mateus Perry Work Phone: [place] Work Phone: Start: 11-24-2022 End: 11-25-2022 ambulatory LATONIA BRUSH [facility] Start: 11-24-2022 End: 11-24-2022 Subsequent hospital visit by physician Mateus Perry MD Work Phone: [facility] Start: 11-23-2022 End: 11-23-2022 ambulatory Christiano Gonzales [employer] Other Start: 11-23-2022 Office outpatient ne w 60 minutes Christiano Gonzales [facility] Vascular Surgery Start: 11-22-2022 End: 11-23-2022 ambulatory [...] encounter procedure Wallace Stone MD Work Phone: [facility] Start: 11-09-2022 Telephone encounter Wallace carolina MD [facility] Phone[facility] Comment on above: Referral Information (Vascular Consult) Start: 11-08-2022 End: 11-09-2022 ambulatory Iliana R NILL Facility: [facility] Start: 11-08-2022 End: 11-08-2022 Patient encounter procedure Iliana R NILL General Surgery Nill/[facility] [place] Start: 11-04-2022 End: 11-05-2022 ambulatory Iliana R NILL Facility:[facility] [place] Start: 11-04-2022 End: 11-04-2022 Patient encounter procedure Iliana GAGNON General Surgery N[facility] [place] Start: 11-02-2022 End: 11-03-[address] MATEUS PERRY . Facility: Start: 10-25-2022 End: 10-26-2022 ambulatory Iliana GAGNON Facility:[facility] Start: 10-25-2022 End: 10-25-2022 Patient encounter procedure Iliana GAGNON General Surgery Nill/[facility] [place] Start: 10-19-2022 End: 10-20-[address] ILIANA GAGNON . Facility: Start: 10-15-[address] ILIANA GAGNON . Facil ity:[facility] Start: 10-12-2022 Encounter for preprocedural laboratory examination DR ILIANA GAGNON . [facility] Start: 10-11-2022 End: 10-12-[address] ILIANA GAGNON . Facility: Start: 10-11-2022 End: 10-12-2022 Encounter for preprocedural laboratory examination DR ILIANA GAGNON . Facility: Start: 09-30-2022 End: 10-01-[address] MATEUS PERRY . Facility: Start: 09-22-2022 Telephone encounter Lars Wilkerson RN Work Phone: Hematology/Oncology Comment on above: Care Coordination (S urgery update) Start: 09-22-2022 End: 09-22-2022 ambulatory WALLACE STONE Facility:[facility] Start: 09-22-2022 End: 09-22-2022 ambulatory [...] 09-09-2022 End: 09-10-2022 ambulatory Iliana GAGNON Facility: [place] Start: 09-09-2022 End: 09-09-2022 Patient encounter procedure [...] by physician Emma Garza MD Work Phone: [facility] Comment on above: Vaginal dysplasia Start: 06-22-2022 End: 06-23-2022 ambulatory SONALI MCKINNEY Facility:[facility] Start: 05-04-2022 ambulatory SONALI MCKINNEY Facility :[facility] Start: 04-12-2022 End: 04-13-2022 ambulatory SONALI OBRIENCKER Facility:[facility] Start: 03-17-2022 End: 03-17-[address] MATEUS PERRY . Facility:[facility] Start: 03-16-2022 End: 03-16-[address] MATEUS PERRY . Facility:[facility] Start: 03-15-2022 End: 03-16-2022 ambulatory SONALI HANK Facility:[facility] Start: 02-15-2022 End: 02-16-2022 ambulatory [facility] Facility:[facility] Start: 02-09-2022 End: 02-10-2022 ambulatory [facility] Facility:[facility] Start: 12-13-2021 End: 12-13-2021 Subsequent hospital visit by physician Emma Garza MD Work Phone: [facility] Comment on above: Post-operative state (Primary Dx) Start: 12-06-2021 End: 12-08-2021 Subsequent hospital visit by physician Stv Pat [facility] Rad[facility] Comment on above: Arrived Start: [...] hospital visit by physician Stv Pat [facility] Comment on above: Arrived Start: [...] above: Performed By: #### [id number] #### [facility] [place] [address], [facility] Start: 01-16-2017 History of placement of stent for coronary artery disease S/P coronary artery stent placement Wallace Stone MD Work Phone: Appendectomy Iliana DORANL Colposcopy Iliana NILL Cryosurgery of lesio n of cervix Iliana NILL Insertion of arteria l stent Liiana NILL Insertion of stent i n femoral vein Iliana NILL Repair of aneurysm Iliana Brown BROWN Total hysterectomy v ia vaginal approach Iliana DORANBerna Ultrasonography guid ed biopsy of right breast Iliana DORANBerna Urinary bladder reconstruction Iliana DORANBerna Plan of Treatment Date Care Activity Detail Author Start: 11-07-2024 End: 11-07-2024 Patient encounter procedure 11/07/2024 10:00 AM EST Office Visit [facility] [address] [facility] [address] [place] [address] Peyman Hensley DPM [address] [facility] [address] [place] [address] [facility] Start: 08-29-2024 End: 08-29-2024 Patient encounter procedure [facility] Comment on above: 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 (CMS/HCC) (Primary Dx); Diabetes mellitus due to underlying condition with diabetic polyneuropathy, 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 oysterman insulin use (CMS/HCC); Pain due to onychomycosis of toenails of both feet; Venous insufficiency Start: 06-20-2024 Hemoglobin/Hematocrit Hemoglobin/Hem atocrit [facility] Start: 06-20-2024 Serum Creatinine Serum Creatinine [facility] Start: 05-12-2024 Influenza vaccination Influenza Vacc ine (#1) [facility] Start: 02-15-2024 HEMOGLOBIN/HEMATOCRIT HEMOGLOBIN/HEM ATOCRIT [facility] Start: 02-15-2024 SERUM CREATININE SERUM CREATININE Cl [facility] Start: 06-16-2023 End: 08-16-2023 CBC W Auto Differential panel - Blood CBC + DIFF Lab Routine 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, estrogen receptor positive (HCC) Expected: 06/16/2023 (Approximate), Expires: 08/16/2023 [place] Work Phone: Comment on above: Expected: 06/16/2023 (Approximate), Expires: 08/16/2023 Start: 06-16-2023 End: 08-16-2023 Comprehensive metabolic 2000 panel - Serum or Plasma COMP METABOLIC PANEL Lab Routine 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, estrogen receptor positive (HCC) Expected: 06/16/2023 (Approximate), Expires: 08/16/2023 [place] Work Phone: Comment on above: Expected: 06/16/2023 (Approximate), Expires: 08/16/2023 Start: 05-12-2023 Covid-19 Vaccine ( season) Covid-19 Vaccine ( season) [facility] Start: 05-12-2023 Influenza vaccination C [facility] Start: 04-12-2023 End: 04-12-2023 Patient encounter procedure 04/12/2023 Office Visit Gynecologic Oncology Latonia Brush PA-C [address] [id number] [facility] Gynecologic Oncology Services Start: 02-09-2023 End: 04-11-2023 CBC W Auto Differential panel - Blood CBC + DIFF Lab Routine 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, estrogen receptor positive (HCC) Expected: 02/09/2023 (Approximate), Expires: 04/11/2023 [place] Work Phone: Comment on above: Expected: 02/09/2023 (Approximate), Expires: 04/11/2023 Start: 02-09-2023 End: 04-11-2023 Comprehensive metabolic 2000 panel - Serum or Plasma COMP METABOLIC PANEL Lab Routine 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, estrogen receptor positive (HCC) Expected: 02/09/2023 (Approximate), Expires: 04/11/2023 [place] Work Phone: Comment on above: Expected: 02/09/2023 (Approximate), Expires: 04/11/2023 Start: 12-13-2022 Potassium monitoring Potassium monit [facility] [employer] Start: 12-06-2022 Creatinine measurement Creatinine mo [facility] Start: 12-06-2022 Potassium monitoring Potassium monit [facility] [employer] Start: 11-29-2022 End: 11-29-2022 [facility] Start: 09-11-2022 ADVANCE DIRECTIVE DISCUSSION ADVANCE DIRECTIVE DISCUSSION [facility] Start: 09-11-2022 DEPRESSION ASSESSMENT DEPRESSION ASS ESSMENT [facility] Start: 07-27-2022 End: 07-27-2022 Patient encounter procedure 07/27/2022 Office Visit Gynecologic Oncology Emma Garza MD [address] [facility] [address] [place] [address] [facility] Gynecologic Oncology Services Start: 06-28-2022 End: 06-28-2022 VULVA VAGINAL CERVIX LESION EXCISION LASER VULVA VAGINAL CERVIX LESION EXCISION LASER Vaginal dysplasia 06/28/2022 9:04 AM EDT [facility] Start: 06-15-2022 Creatinine measurement Creatinine mo [facility] [employer] Work Phone: Start: 06-15-2022 Potassium monitoring Potassium monit [facility] Work Phone: Start: 05-12-2022 Creatinine measurement Creatinine mo [facility] Work Phone: Start: 05-12-2022 Influenza vaccination INFLUENZA (#1) [facility] Start: 05-12-2022 Potassium monitoring Potassium monit [facility] Work Phone: Start: 04-11-2022 Influenza vaccination Flu vaccine (# 1) [facility] Start: 01-14-2022 End: 01-14-2022 Patient encounter procedure 01/14/2022 Office Visit Gynecologic Oncology Latonia Burks PA-C [address] [facility] [address] [place] [id number] [facility] Gynecologic Oncology Services Start: 12-13-2021 End: 12-13-2021 VAGINECTOMY [facility] Start: 12-13-2021 End: 12-13-2021 Admission to same day surgery center [facility] Comment on above: VAGINECTOMY, CYSTOSC OPY CYSTOSCOPY, VAGINECT PATY Start: 12-13-2021 Subsequent hospital visit by physician 12/13/2021 Hospital Encounter IP Unit Emma Garza MD [address] [facility] [address] [place] [id number] [facility] Start: 12-13-2021 End: 12-13-2021 Vaginectomy complete removal vaginal wall VAGINECTOMY VAGINAL DYSPLASIA, RULE OUT CANCER 12/13/2021 10:20 AM EDT [facility] Start: 10-31-2021 Annual Wellness Visi t (AWV) Annual Wellness Visit (AWV) [facility] Start: 10-15-2021 COVID-19 VACCINE (4 - Booster for Moderna series) COVID-19 VACCINE (4 - Booster for Moderna series) [facility] Start: 07-01-2021 End: 07-01-2021 Patient encounter procedure 07/01/2021 Office Visit Gynecologic Oncology Kin Abarca MD [address] [facility] [address] [place] [id number] [facility] Gynecologic Oncology Services Start: 05-12-2021 Influenza vaccination Flu vaccine (# 1) [facility] Work Phone: Start: 04-05-2021 COVID-19 Vaccine (3 - Booster for Moderna series) COVID-19 Vaccine (3 - Booster for Moderna series) [facility] Start: 10-29-2020 Hemoglobin A1c/Hemoglobin.total in Blood HBA1C [facility] Start: 01-19-2018 Pneumococcal Vaccine : 65+ (2 - PCV) Pneumococcal Vaccine: 65+ (2 - PCV) [facility] Start: 01-19-2018 Pneumococcal Vaccine : 65+ Years (2 of 2 - PCV) Pneumococcal Vaccine: 65+ Years (2 of 2 - PCV) [facility] Start: 01-19-2018 PNEUMOCOCCAL: 65+ (2 - PCV) PNEUMOCOCCAL: 65+ (2 - PCV) [facility] Start: 2007 BONE DENSITY BONE DENSITY [facility] Start: 2007 Bone Density Screening Bone Density Screening [facility] Start: 2007 Pneumococcal 65+ yea rs Vaccine (1 - PCV) Pneumococcal 65+ years Vaccine (1 - PCV) [facility] Start: 2007 Pneumococcal 65+ yea rs Vaccine (1 of 1 - PPSV23) Pneumococcal 65+ years Vaccine (1 of 1 - PPSV23) [facility] [facility] Start: 2002 Hepatitis B Vaccine (1 of 3 - Risk 3-dose series) Hepatitis B Vaccine (1 of 3 - Risk 3-dose series) [facility] Start: 1997 Screening for osteoporosis DEXA (modify frequency per FRAX score) [facility] Start: 1992 Shingles Vaccine (1 of 2) Shingles Vaccine (1 of 2) [facility] Start: 1992 SHINGRIX VACCINE (1 of 2) SHINGRIX VACCINE (1 of 2) [facility] Start: 1961 DTaP/Tdap/Td vaccine (1 - Tdap) DTaP/Tdap/Td vaccine (1 - Tdap) [facility] Start: 1961 Urine microalbumin profile [facility] Start: 1960 ANNUAL PCP TEAM ABATTOIR MANAGER USAMA DISEASE VISIT ANNUAL PCP TEAM CHRONIC DISEASE VISIT [facility] Start: 1960 BP CONTROLLED (<130/80) BP CON TROLLED (<130/80) [facility] Start: 1960 Hepatitis B surface antibody level LDL CHOLESTEROL [facility] Start: 1960 Hepatitis C screening Hepatitis C sc reen ENIO [facility] Start: 1954 Depression Screen Depression Screen [facility] Start: 1952 3 comp foot exam completed DIABETIC FOOT EXAM [facility] Start: 1952 Hepatitis B screening URINE ALBUMIN:CREATININE RATIO [facility] Start: 1952 Hepatitis C antibody , confirmatory test DILATED RETINAL EXAM [facility] Start: 1952 Lipid panel [facility] Start: 1942 Hepatitis C screening Hepatitis C sc reen [facility] EKG 12 Lead EKG 12 Lead ECG STAT 06/28/2022 7:29 AM EDT [employer] [facility] Work Phone: End: 12-13-2021 INITIATE PACU OXYGEN THERAPY PROTOCOL Initiate PACU Oxygen Therapy Protocol Respiratory Care Routine Continuous until discontinued starting 12/13/2021 [employer] Work Phone: Comment on above: Continuous until dis continued starting 12/13/2021 End: 06-28-2022 INITIATE PACU OXYGEN THERAPY PROTOCOL Initiate PACU Oxygen Therapy Protocol Respiratory Care Routine Continuous until discontinued starting 06/28/2022 [facility] [employer] Work Phone: Comment on above: Continuous until dis continued starting 06/28/2022 End: 07-19-2024 MAGNO DIAGNOSTIC BILATERAL MAGNO DIAGNOSTIC BILATERAL Radiology Routine 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, estrogen receptor positive (HCC) 1 Occurrences starting 06/20/2023 until 07/19/2024 [place] Work Phone: Comment on above: 1 Occurrences starti ng 06/20/2023 until 07/19/2024 Patient referral [facility] Work Phone: Spirometry panel Incentive viktoriya metry Respiratory Care Routine Every 2hr while awake until discontinued starting 12/13/2021 [employer] Work Phone: Comment on above: Every 2hr while awak e until discontinued starting 12/13/2021 [facility] Surgical Path ology Lab Routine Release Upon Ordering for 1 Occurrences starting 06/15/2021 [employer] Work Phone: Comment on above: Release Upon Orderin g for 1 Occurrences starting 06/15/2021 Surgical Pathology Surgical Path ology Lab Routine Release Upon Ordering for 1 Occurrences starting 12/13/2021 [employer] Phone: Comment on above: Release Upon Orderin g for 1 Occurrences starting 12/13/2021 Surgical Pathology Surgical Path ology Lab Routine Vaginal dysplasia Release Upon Ordering for 1 Occurrences starting 06/28/2022 [employer] Phone: Comment on above: Release Upon Orderin g for 1 Occurrences starting 06/28/2022 End: 06-28-2022 SURGICAL PATHOLOGY REPORT SURGICAL PATHOLOGY REPORT Lab Routine Once for 1 Occurrences starting 06/28/2022 until 06/28/2022 [employer] Phone: Comment on above: Once for 1 Occurrenc es starting 06/28/2022 until 06/28/2022 End: 11-24-2022 SURGICAL PATHOLOGY REPORT SURGICAL PATHOLOGY REPORT Lab Routine Once for 1 Occurrences starting 11/24/2022 until 11/24/2022 [employer] Phone: Comment on above: Once for 1 Occurrenc es starting 11/24/2022 until 11/24/2022 [facility] Immunizations Immunization Date Immunization Notes Care Provider [facility] 07-12-2022 influenza virus vacc ine, unspecified formulation Iliana GAGNON [facility] 08-20-2021 SARS-CoV-2 (COVID-19 ) mRNA-1273 vaccine Iliana GAGNON [facility] 07-01-2021 influenza (HD-IIV4) vaccine, age 65+ yr, high dose, quadrivalent, PF (FLUZONE HIGH-DOSE) Wallace Stone MD Work Phone: [facility] 07-01-2021 influenza virus vacc ine, unspecified formulation Winnie Guzmán PA-C Work Phone: [facility] 11-06-2020 COVID-19, Moderna, P F, 100mcg/0.5mL Stv Xr [facility] 10-09-2020 COVID-19, Moderna, P F, 100mcg/0.5mL Stv Xr [facility] Work Phone: 06-10-2020 Seasonal trivalent influenza vaccine, adjuvanted, preservative free Wallace Stone MD Work Phone: [facility] 06-07-2017 influenza, high dose seasonal, preservative-free Wallace Stone MD Work Phone: [facility] 01-19-2017 pneumococcal polysaccharide vaccine, 23 valent Wallace Stone MD Work Phone: [facility] 06-29-2015 influenza, high dose seasonal, preservative-free Wallace Stone MD Work Phone: [facility] 06-23-2014 influenza, high dose seasonal, preservative-free Wallace Stone MD Work Phone: [facility] 06-15-2010 pneumococcal polysaccharide vaccine, 23 valent Wallace Stone MD Work Phone: [facility] 06-27-2007 influenza virus vacc ine, whole virus Wallace Stone MD Work Phone: [facility] Payers Date Payer Category Payer Self-pay [id number] 2023 Private Health Insurance [facility] KASSIE BAEZAHANDRE Nair [id number] 2007 Medicare [id number] 1.13.159. [id number] 2007 Unknown [id number]. 1.13.159. 2.7.3.409164.315 2007 Unknown [id number] 1.2.840.161408.1.13.239. 2.7.3.646048.315 1959 Medicare [id number] 1.2.840.652657.1.13.239. 2.7.3.261452.315 1959 Self-pay [id number] 1959 Unknown [id number] 2.16.840.1.664494.19 1942 Unknown [id number] 2.16.840.1.121387.3.579. 2.593 1942 Unknown [id number] 2.16.840.1.687569.3.579. 2.593 1942 Unknown [id number] 2.16.840.1.031750.3.579. 2.593 1942 Unknown [id number] 2.16.840.1.278846.3.579. 2.593 1942 Unknown [id number] 2.16.840.1.287124.3.579. 2.593 1942 Unknown [id number] 2.16.840.1.960219.3.579. 2.593 1942 Unknown [id number] 2.16.840.1.287898.3.579. 2.593 1942 Unknown [id number] 2.16.840.1.871658.3.579. 2.593 1942 Unknown [id number] 2.16.840.1.400265.3.579. 2.593 1942 Unknown [id number] 2.16.840.1.009695.3.579. 2.593 1942 Unknown [id number] 2.16.840.1.346369.3.579. 2.593 1942 Unknown [id number] 2.16.840.1.219952.3.579. 2.593 1942 Unknown [id number] 2.16.840.1.251226.3.579. 2.593 1942 Unknown [id number] 2.16.840.1.629688.3.579. 2.593 1942 Unknown [id number] 2.16.840.1.218673.3.579. 2.593 1942 Unknown [id number] 2.16.840.1.370451.3.579. 2.593 1942 Unknown [id number] 2.16.840.1.451553.3.579. 2.593 1942 Unknown [id number] 2.16.840.1.964863.3.579. 2.593 1942 Unknown [id number] 2.16.840.1.163873.3.579. 2.593 1942 Unknown [id number] 2.16.840.1.684195.3.579. 2.593 1942 Unknown [id number] 2.16.840.1.679667.3.579. 2.593 1942 Unknown [id number] 2.16.840.1.694013.3.579. 2.593 1942 Unknown [id number] 2.16.840.1.524768.3.579. 2.593 1942 Unknown [id number] 2.16.840.1.945622.3.579. 2.593 1942 Unknown [id number] 2.16.840.1.285020.3.579. 2.593 1942 Unknown [id number] 2.16.840.1.387042.3.579. 2.593 1942 Unknown [id number] 2.16.840.1.332838.3.579. 2.593 1942 Unknown [id number] 2.16.840.1.793712.3.579. 2.727 1942 Unknown [id number] 2.16.840.1.360594.3.579. 2.727 1942 Unknown [id number] 2.16.840.1.263893.3.579. 2.727 1942 Unknown [id number] 2.16.840.1.124686.3.579. 2.727 1942 Unknown [id number] 2.16.840.1.695499.3.579. 2.727 1942 Unknown [id number] 2.16.840.1.067081.3.579. 2.727 1942 Unknown [id number] 2.16.840.1.174744.3.579. 2.727 1942 Unknown [id number] 2.16.840.1.391866.3.579. 2.175 1942 Unknown [id number] 2.16840.1.464582.3.579. 2.175 1942 Unknown [id number] 2.16840.1.465486.3.579. 2.175 1942 Unknown [id number] 2.16.840.1.906443.3.579. 2.1259 1942 Unknown [id number] 2.16840.1.853208.3.579. 2.1259 Medicare Medicare Outpatient [id number] Unknown [id number] 2.16840.1.050317.3.579. 2.531 Unknown [id number] 2.16.840.1.128253.3.579. 2.531 Social History Date Type Detail Facility Start: 05-12-2021 End: 06-20-2024 Tobacco smoking status NHIS Former smoker [employer] Phone: Start: 09-11-1962 End: 06-28-2018 History of tobacco use Current smoker [employer] Start: 09-11-1962 End: 06-28-2018 History of tobacco use Cigarette Smoker [employer] Start: 05-12-2021 End: 06-20-2024 Tobacco use and exposure Never used [employer] Start: 05-12-2021 End: 11-24-2022 Alcohol intake Ex-drinker (finding) [employer] Phone: Start: 1940 Sex Assigned At Not on file M [employer] Phone: Start: 11-26-2021 End: 06-24-2022 Exposure to SARS-CoV-2 (event) Not sure [employer] Start: 06-15-2021 End: 06-20-2024 Cigarettes smoked current (pack per day) - Reported [facility] History of tobacco use Passive smoker [employer] Phone: Tobacco smoking status Never [facility] [place] Start: 02-14-2023 End: 06-20-2024 Sex Assigned At Female [facility] Start: 09-19-2022 End: 02-14-2023 Alcohol intake Current non-drinker of alcohol (finding) [facility] Start: 1940 Sex Assigned At Female F [facility] Tobacco smoking stat [facility] Tobacco smoking consumption unknown [facility] Start: 06-20-2024 End: 08-29-2024 Alcoholic beverage intake Lifetime non-drinker (finding) [facility] Medical Equipment Procedure Code Equipment Code Equipment [...] Facility 09-09-2022 Functional Status N/A [facility] Clinical Notes 05-12-2021 to 09-02-2024 Peyman Hensley DPM - 08/29/2024 10:00 AM Darius Hensley DPM - 06/20/2024 9:40 AM EDT Note Date & Type Note Facility 09-02-2024 Note ME Electrophysiology Consult Note ME Cardiology [facility] Reason for visit: s/p [...] today shows good function. Patient underwent the REGIONAL TELECOMMUNICATIONS SPECIALIST placement on 07/10/2024 and subsequently underwent an [...] in A-fib. She was just discharged from [facility] for GI bleed. Eliquis and aspirin [...] fibrillation (CMS/HCC) CAD (coronary artery disease) Cancer ([facility]/HCC) CHF (congestive heart failure) ([facility]/HCC) Chronic kidney disease COPD (chronic obstructive pulmonary disease) (CMS/HCC) Diabetes mellitus (CMS/HCC) GI bleed Heart murmur Hyperlipidemia Hypertension PVD (peripheral vascular disease) ([facility]/HCC) PSH: Past Surgical History: Procedure Laterality Date [...] fish oil concen (more content not included)... [facility] 08-29-2024 History of Present illness Narrative [...] 4 months after hitting object. Currently sees [place] [...] Partner Violence: Unknown (11/02/2023) Received from [facility] [place] Safety & Environment Fear of Current [...] and negative PT pedal pulses NEURO: 5.07 [place] Sybil monofilament test intact to digits and forefoot bilaterally 125Hz tuning fork diminished to 1st MPJ bilaterally ORTHO: Positive pain on palpation to nails 1 through 10 Positive pain palpation left anterior braun ASSESSMENT 1. 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 Diabetes mellitus due to underlying condition with diabetic polyneuropathy, 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 oysterman insulin use (CMS/HCC) 3. Pain due to [...] DSD applied . Patient currently has the [facility] wound center applying Medihoney every other day. Did discuss possibility if no improvement to contact Podiatry for advanced wound care treatments or if any signs of infection Peyman Hensley DPM documented in this encounter [facility] 08-27-2024 Note ME Electrophysiology Consult Note ME Cardiology - [facility] Reason for visit: s/p CRTD [...] today shows good function. Patient underwent the REGIONAL TELECOMMUNICATIONS SPECIALIST placement on 07/10/2024 and subsequently underwent an [...] in A-fib. She was just discharged from [facility] for GI bleed. Eliquis and aspirin [...] kidney disease COPD (chronic obstructive pulmonary disease) ([facility]/HCC) Diabetes mellitus ([facility]/HCC) GI bleed Heart murmur Hyperlipidemia Hypertension PVD (peripheral vascular disease) ([facility]/HCC) PSH: Past Surgical History: Procedure Laterality Date CARDIAC CATHETERIZATION 12/15/2011, 08/23/2010, 12/30/2004, CORONARY STENT PLACEMENT HYSTERECTOMY 03/11/2005 VASCULAR SURGERY SH: Social Determinants of Health Tobacco Use: Medium Risk (06/20/2024) Received from [facility], [facility] Patient History Smoking Tobacco Use: Former Smokeless Tobacco Use: Never Passive Exposure: Not on file Alcohol Use: Not on file Financial Resource Strain: Not on file Food Insecurity: Not on file Transportation Needs: Not on file Physical Activity: Not on file Stress: Not on file Social Connections: Not on file Intimate Partner Violence: Unknown (11/02/2023) [place] Fear of Current or Ex-Partner: Not on file Emotionally Abused: Not on file Physically Abused: Not on file Sexually Abused: Not on file Physically or Sexually Abused: Not on file Depression: Not at risk (02/14/2023) Received from [facility], [facility] PHQ-2 PHQ-2 score: 0 Housing Stability: [...] mouth two times daily. fish oil concentrate ([place]-3) 120-180 mg capsule Take 1,000 mg by [...] insulin glargine (L (more content not included)... [facility] 08-12-2024 Note AV NODE ABLATION PRO CEDURE REPORT DATE OF PROCEDURE: 08/12/2024 PERFORMING PHYSICIAN: Dr. Brian Potter TEASELER: [employer] CONSENT: Patient NAME OF THE PROCEDURE: [...] in A-fib. She was just discharged from [facility] for GI bleed. Eliquis and aspirin have been put on hold. She was originally scheduled for DCCV today with Dr. Keyes. Jardiance was stopped, and metoprolol was reduced to 100mg daily.She underwent REGIONAL TELECOMMUNICATIONS SPECIALIST on 07/10/24 and now presents for AVN [...] Continue anticoagulation. Brian Potter MD Cardiac Electrophysiology. [facility] 08-12-2024 Note Patient: Harman rubio Procedure Information Date/Time: 08/12/24 1230 Procedure: AV node ablation - PC APPROVED Location: [facility] ESTIMATOR AND DRAFTER SUPERVISOR 1 EP / [facility] VASCULAR LAB (Cath) Providers: Brian Potter MD Clinical information reviewed: Allergies Meds OB Status Physical Exam Airway Mallampati: II TM distance: >3 FB Neck ROM: full Cardiovascular Dental Pulmonary Abdominal Anesthesia Plan ASA 2 CSE Additional Equipment Requests [facility] 07-17-2024 Note ME Cardiology - [facility] Subjective Harman Mcleod is [...] List Diagnosis Angina pectoris (CMS/HCC) Atherosclerosis of galena coronary artery of galena heart without angina pectoris Dyslipidemia Dyspnea Gastroesophageal [...] Diagnosis Date Abnormal ECG Arrhythmia Atrial fibrillation ([facility]) CAD (coronary artery disease) Cancer ([facility]) CHF (congestive heart failure) ([facility]) Chronic kidney disease COPD (chronic obstructive pulmonary disease) ([facility]) Diabetes mellitus ([facility]) GI bleed Heart murmur Hyperlipidemia Hypertension PVD (peripheral vascular disease) ([facility]) Past Surgical History: Procedure Laterality Date CARDIAC [...] m (5' 1 (more content not included)... [facility] 07-10-2024 Note REGIONAL TELECOMMUNICATIONS SPECIALIST-D IMPLANT PROCED URE NOTE DATE OF PROCEDURE: 07/10/2024 PERFORMING PHYSICIAN: Dr. Brian Potter TEASELER: [employer] CONSENT: Patient LOCATION: [employer] PROCEDURE PERFORMED: 1. Implantation of Biventricular ICD ([employer]) 2. U/S venous access 3. Coronary [...] be in A-fib. She was just [facility] for GI bleed. Eliquis and aspirin [...] dizziness/lightheadedness. Decision was made to proceed with REGIONAL TELECOMMUNICATIONS SPECIALIST-D device and an AVN ablation. PROCEDURAL DETAILS: [...] occasions using seldinger technique using a 5 Filipino micropunture needle and exchanged for 0.034 wire. I decided to proceed with opening of the pocket. Localinfiltration of 1% Lidocaine was performed and an incision was created in the left upper chest. Dissection was then performed using cautery down. An active fixation [employer] ICD lead was then delivered through the 8F sheath to the right ventricle. After confirmation of lead position on orthogonal views (JAIMES and ETHIOPIAN) to confirm position in the septal aspect, [...] postero-lateral branch that was fairly good size. Ambrose-Tammy catheter was then taken out and a 90degree inner cannula was advanced into the CS. The amplatz wire was removed and then a0.24 wire was used as a emily wire. I then used a whisper wire and this tracked into the posterolateral vein. [employer] S shaped lead was advanced over 0.014 wire into the lateral border. Once the guiding sheaths were removed, the lead was secured in the pocket using three 0- Silk sutures.The leads were then attached to a [employer] REGIONAL TELECOMMUNICATIONS SPECIALIST-D device and the leads tug tested and [...] was placed o (more content not included)... [facility] 07-10-2024 Note Patient: Harman rubio Procedure Information Date/Time: 07/10/24 1200 Procedure: Implant ICD - biventricular - PC APPROVED [employer] Location: [facility] ESTIMATOR AND DRAFTER SUPERVISOR 1 EP / [facility] VASCULAR LAB (Cath) Providers: Brian Potter MD Clinical information reviewed: Allergies Meds Physical Exam Airway Mallampati: II TM distance: >3 FB Cardiovascular Dental Pulmonary Abdominal Anesthesia Plan ASA 3 CSE Anesthetic plan and risks discussed with patient. Use of blood products discussed with patient who. Additional Equipment Requests [facility] 07-10-2024 Note Betadine nasal swabs completed. Pt did CHG wipes last night. Pt stated that the wipes made her break out. Pt does not want to use the wipes again preprocedure. [facility] 07-02-2024 Note ME Electrophysiology Consult Note ME Cardiology [facility] Reason for visit: Afib [...] in A-fib. She was just discharged from [facility] for GI bleed. Eliquis and aspirin [...] disease) Cancer (CMS/HCC) CHF (congestive heart failure) ([facility]) Chronic kidney disease COPD (chronic obstructive pulmonary disease) ([facility] Diabetes mellitus ([facility]) GI bleed Heart murmur Hyperlipidemia Hypertension PVD (peripheral vascular disease) ([facility]) PSH: Past Surgical History: Procedure Laterality Date [...] on file Intimate Partner Violence: Unknown (11/02/2023) [place] Fear of Current or [...] mouth two times daily. fish oil concentrate ([place]-3) 120-180 mg capsule Take 1,000 mg by [...] mouth at bedti (more content not included)... [facility] 06-20-2024 History of Present illness Narrative [...] Partner Violence: Unknown (11/02/2023) Received from [facility] [place] [facility] [place] Fear of Current [...] and negative PT pedal pulses NEURO: 5.07 [place] Sybil monofilament test intact to digits and forefoot bilaterally 125Hz tuning fork diminished to 1st MPJ bilaterally ORTHO: Positive pain on palpation to nails 1 through 10 Positive pain palpation left anterior braun ASSESSMENT 1. Venous insufficiency 2. Hav (hallux abducto valgus), left 3. Acquired deformity of left toe 4. 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 Diabetes mellitus due to underlying condition with diabetic polyneuropathy, 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 [place] [facility] insulin use ([facility]) 6. Pain due to onychomycosis of toenails [...] DSD applied . Patient currently has the [facility] wound center applying Medihoney every other day. Did discuss possibility if no improvement to contact Podiatry for advanced wound care treatments or if any signs of infection Peyman Hensley DPM documented in this encounter [facility] 06-12-2024 Note ME Cardiology - [facility] Subjective Harman Mcleod is a 83 y.o. year old female patient being seen for follow up echo performed on 06/04/2024. Denies chest pain, SOB, and palpitations. Feels good but is tired today. BP at home was 107/71 today and yesterday 114/55. Patient Active Problem List Diagnosis Angina pectoris (CMS/HCC) Atherosclerosis of galena coronary artery of galena heart without angina pectoris Dyslipidemia Dyspnea Gastroesophageal [...] alert and orie (more content not included)... [facility] 05-27-2024 Note Remains on ASA No c/o angina or concerns [facility] 05-27-2024 Note As above [facility] 05-27-2024 Note [id number]= 6-7 at least with Age, Sex, CHF, CAD/Vascular disease, HTN, DM Currently per assessment she appears to be in rhythm heart rate well-controlled with metoprolol 200 mg daily and she remains on Eliquis anticoagulation without any bleeding tendencies or concerns. [facility] 05-27-2024 Note Lipid abnormalities are elevated therefore will increase zocor to 40 mg daily. Will repeat lipid level and liver function in 2-[address] [facility] 05-27-2024 Note Congestive heart ivanemily todd is stable without worsening symptoms TXHC II -currently patient is euvolemic without exacerbation. [...] helps prevent rehospitalization for heart failure exacerbation [facility] 05-27-2024 Note Hypertension current ly is well-controlled at 106/67 Continue amlodipine, hydralazine, Imdur, Toprol and spironolactone Currently renal function normal, no acute concerns. [facility] 05-27-2024 Note Coronary artery dise ase [...] exercise as tolerated and continue all medications. [facility] 05-27-2024 Note Pt is here for a one year follow up. Pt denies chest pain, palpatations, sob. Review of Systems All other systems reviewed and are negative. [facility] 05-27-2024 Note UTP CARDIOLOGY PROGR ESS [...] systems reviewed and are negative Admit to [facility] 02/13/24 DC Summary DS: Summary Hospital [...] 81 mg by mouth. fish oil concentrate ([place]-3) 120-180 mg capsule Take 1,000 mg by [...] 112 mcg tabl (more content not included)... [facility] 04-10-2024 Progress note Note Date/Time April 10, 2024 10:30am [facility] [address] [place] [address] Wound Center Provider Note Signed Patient: Harman Mcleod MR#: [id number] : 1940 Acct:[id number] Age/Sex: 83 / F Copies to: MD Janell Oliver, FERNY~ HPI Date of Visit Date of Visit: Date of Service: 04/10/2024 Time of Service: 10:26 Narrative HPI: 12/11/23 Harman is an 83 year old presenting to [facility] wound care for an initial visit [...] present for the entire visit, she has [facility], the left leg will [...] wrapped again today for good measure and [facility] can remove next week and start stockings or wraps if something is open on the legs, family and friend present for the visit, does not need to return to the office unless new ulcers do develop, spoke about her getting established with a military personnel specialist and so hopefully she will follow [...] to go to the ED per the [facility] nurse but she had refused this and [...] bilateral lower leg ulcers Mode of Arrival/ Drawer Hardware Worker: Friend Assistive Device Used Today: Walker Lives with:: Significant Other Appetite Description: Within Normal Limits Who helps w/ dressing change?: Home Health Why Do You Need Help?: Can't Reach Ulcer, Limited mobility, Unsafe leave home byself and Taxing effort to leave home Smoking Status: Former smoker [facility] Medical History (Updated 04/10/24 @ 10:30 [...] clean-up per request of Phys. EHR [facility] Family History (Updated 06/01/23 @ 08:45 [...] DAILY 04/25/19 [History Confirmed 12/11/23] omega-3s 300 jl-hcb-uyo-other fapwo6g-udjq oil 1,000 mg capsule ([place]-3 Fish Oil) 2 cap PO BID 04/25/19 [...] Stasis Ulcer Thickness: Skin Breakdown Bed Appearance: Gowen Percent of Wound Bed Granulated/Red: 100 Percent [...] <Electronically signed by FERNY Mathews> 04/10/24 [address] [facility] Work Phone: 1(861) 259-224007-16-2024 Progress note Author Janell Mathews [facility] March 26, 2024 9:51am Note Date/Time March 26, 2024 9:51 am [facility] [address] [place] [address] Wound Center Provider Note Signed Patient: Harman Mcleod MR#: [id number] : 1940 Acct:[id number] Age/Sex: 83 / F Copies to: MD Janell Oliver APRN~ HPI Date of Visit Date of Visit: Date of Service: 03/26/2024 Time of Service: 09:47 Narrative HPI: 12/11/23 Harman is an 83 year old presenting to [facility] wound care for an initial visit [...] present for the entire visit, she has [facility], the left leg will [...] wrapped again today for good measure and [facility] can remove next week and start stockings or wraps if something is open on the legs, family and friend present for the visit, does not need to return to the office unless new ulcers do develop, spoke about her getting established with a military personnel specialist and so hopefully she will follow [...] to go to the ED per the [facility] nurse but she had refused this and [...] bilateral lower leg ulcers Mode of Arrival/ Drawer Hardware Worker: Friend Assistive Device Used Today: Walker Lives with:: Significant Other Appetite Description: Within Normal Limits Who helps w/ dressing change?: Home Health Why Do You Need Help?: Can't Reach Ulcer, Limited mobility, Unsafe leave home byself and Taxing effort to leave home Smoking Status: Former smoker [facility] Medical History (Updated 02/13/24 @ 10:54 by Janlel Mathews APRN) Leg ulcer, left Cataract Problem [...] clean-up per request of Phys. EHR [facility] Hyperthyroidism Problem List clean-up per request of Phys. EHR [facility] Diabetes mellitus Problem List clean-up per request of Phys. EHR Cmte Hypertension Problem List clean-up per request of Phys. EHR [facility] Surgical History History of bladder suspension procedure Problem List clean-up per request of Phys. EHR [facility] H/O: hysterectomy Problem List clean-up per request of Phys. EHR Cmte History of appendectomy Problem List clean-up per request of Phys. EHR Cmte History of heart artery stent Problem List clean-up per request of Phys. EHR [facility] Family History (Updated 06/01/23 @ 08:45 [...] DAILY 04/25/19 [History Confirmed 12/11/23] omega-3s 300 fu-mvz-pgp-other uekko2t-smht oil 1,000 mg capsule ([place]-3 Fish Oil) 2 cap PO BID 04/25/19 [...] Breakdown Bed Appearance: Epithelial Tissue or Bridge, Gowen and Yellow Percent of Wound Bed Granulated/Red: [...] <Electronically signed by FERNY Mathews> 03/26/24 [address] [facility] Work Phone: 1(914) 293-630006-04-2024 Progress note Author Janell Mathews [facility] February 13, 2024 10:55am Note Date/Time February 13, 2024 10:55 am [facility] [address] [place] [address] Wound Center Provider Note Signed Patient: Harman Mcleod MR#: [id number] : 1940 Acct:[id number] Age/Sex: 83 / F Copies to: MD Janell Oliver APRN~ HPI Date of Visit Date of Visit: Date of Service: 02/13/2024 Time of Service: 10:47 Narrative HPI: 12/11/23 Harman is an 83 year old presenting to [facility] wound care for an initial visit [...] the entire visit, [facility], the left leg will be treated with [...] spoke about her getting established with a military personnel specialist and so hopefully she will follow [...] to go to the ED per the [facility] nurse but she had refused this and wanted to come to this appt instead Subjective Pain Left Leg: Pain Description: Intermittent Pain Intensity: 0 Wound/Ulcer History When did wound start?: August 2023 bilateral lower leg ulcers Mode of Arrival/ Drawer Hardware Worker: Friend Assistive Device Used Today: Walker Lives with:: Significant Other Appetite Description: Within Normal Limits Who helps w/ dressing change?: Home Health Why Do You Need Help?: Can't Reach Ulcer, Limited mobility, Unsafe leave home byself and Taxing effort to leave home Smoking Status: Former smoker [facility] Medical History (Updated 02/13/24 @ 10:54 [...] clean-up per request of Phys. EHR [facility] Surgical History History of bladder suspension procedure Problem List clean-up per request of Phys. EHR Cmte H/O: hysterectomy Problem List clean-up per request of Phys. [facility] History of appendectomy Problem List clean-up per request of Phys. EHR Cmte History of heart artery stent Problem List clean-up per request of Phys. EHR [facility] Family History (Updated 06/01/23 @ 08:45 [...] DAILY 04/25/19 [History Confirmed 12/11/23] omega-3s 300 wy-ipi-mqo-other emvkx7v-fpyn oil 1,000 mg capsule ([place]-3 Fish Oil) 2 cap PO BID 04/25/19 [...] Posterior Thigh: Bed Appearance: Beefy Red and Gowen Percent of Wound Bed Granulated/Red: 0 Percent [...] <Electronically signed by FERNY Mathews> 02/13/24 [address] [place] Work Phone: 1(361) 187-362905-21-2024 Progress note Author Janell Mathews [facility] January 30, 2024 10:44am Note Date/Time January 30, 2024 10:44 am [facility] [address] [place] [address] Wound Center Provider Note Signed Patient: Harman Mcleod MR#: [id number] : 1940 Acct:[id number] Age/Sex: 83 / F Copies to: MD Janell Oliver APRN~ HPI Date of Visit Date of Visit: Date of Service: 01/30/2024 Time of Service: 10:37 Narrative HPI: 12/11/23 Harman is an 83 year old presenting to [facility] wound care for an initial visit [...] present for the entire visit, she has [facility], the left leg will [...] spoke about her getting established with a military personnel specialist and so hopefully she will follow [...] bilateral lower leg ulcers Mode of Arrival/ Drawer Hardware Worker: Friend Assistive Device Used Today: Walker Lives with:: Significant Other Appetite Description: Within Normal Limits Who helps w/ dressing change?: Home Health Why Do You Need Help?: Can't Reach Ulcer, Limited mobility, Unsafe leave home byself and Taxing effort to leave home Smoking Status: Former smoker [facility] Medical History (Updated 01/30/24 @ 10:43 [...] clean-up per request of Phys. EHR [facility] Surgical History History of bladder suspension procedure Problem List clean-up per request of Phys. EHR Cmte H/O: hysterectomy Problem List clean-up per request of Phys. EHR Cmte History of appendectomy Problem List clean-up per request of Phys. EHR Cmte History of heart artery stent Problem List clean-up per request of Phys. [facility] Family History (Updated 06/01/23 @ 08:45 [...] DAILY 04/25/19 [History Confirmed 12/11/23] omega-3s 300 xg-kdr-knk-other lhuxa8b-kfun oil 1,000 mg capsule ([place]-3 Fish Oil) 2 cap PO BID 04/25/19 [...] Posterior Thigh: Bed Appearance: Beefy Red and Gowen Percent of Wound Bed Granulated/Red: 100 Percent [...] <Electronically signed by FERNY Mathews> 01/30/24 [address] [place] Work Phone: 1(111) 133-920204-18-2024 Progress note Author Janell Mathews [facility] December 28, 2023 11:22am Note Date/Time December 28, 2023 11: 22am [facility] [address] [place] [address] Wound Center Provider Note Signed Patient: Harman Mcleod MR#: [id number] : 1940 Acct:[id number] Age/Sex: 83 / F Copies to: MD Janell Oliver APRN~ HPI Date of Visit Date of Visit: Date of Service: 12/28/2023 Time of Service: 11:19 Narrative HPI: 12/11/23 Harman is an 83 year old presenting to [facility] wound care for an initial visit [...] present for the entire visit, she has [facility], the left leg will be [...] wrapped again today for good measure and [facility] can remove next week and start stockings or wraps if something is open on the legs, family and friend present for the visit, does not need to return to the office unless new ulcers do develop, spoke about her getting established with a military personnel specialist and so hopefully she will follow through on that, spoke about compression socks too forlong term use Subjective Pain Left Leg: Pain Intensity: 0 Wound/Ulcer History When did wound start?: August 2023 bilateral lower leg ulcers Mode of Arrival/ Drawer Hardware Worker: Friend Assistive Device Used Today: Walker Lives with:: Significant Other Appetite Description: Within Normal Limits Who helps w/ dressing change?: Home Health Why Do You Need Help?: Can't Reach Ulcer, Limited mobility, Unsafe leave home byself and Taxing effort to leave home Smoking Status: Former smoker [facility] Medical History (Updated 12/11/23 @ 09:30 [...] clean-up per request of Phys. EHR [facility] Family History (Updated 06/01/23 @ 08:45 [...] DAILY 04/25/19 [History Confirmed 12/11/23] omega-3s 300 pf-cij-vti-other ukdke8o-pmsk oil 1,000 mg capsule ([place]-3 Fish Oil) 2 cap PO BID 04/25/19 [...] <Electronically signed by FERNY Mathews> 12/28/23 [address] [place] Work Phone: 1(406) 364-761504-01-2024 Progress note Author Janell Mathews [facility] December 11, 2023 9:35am Note Date/Time December 11, 2023 9:35 am [facility] [address] [place] [address] Wound Center Provider Note Signed Patient: Harman Mcleod MR#: [id number] : 1940 Acct:[id number] Age/Sex: 83 / F Copies to: MD Janell Oliver APRN~ HPI Date of Visit Date of Visit: Date of Service: 12/11/2023 Time of Service: 09:27 Narrative HPI: 12/11/23 Harman is an 83 year old presenting to [facility] wound care for an initial visit [...] present for the entire visit, she has [facility], the left leg will be [...] bilateral lower leg ulcers Mode of Arrival/ Drawer Hardware Worker: Friend Assistive Device Used Today: Walker Lives with:: Significant Other Appetite Description: Within Normal Limits Who helps w/ dressing change?: Home Health Why Do You Need Help?: Can't Reach Ulcer, Limited mobility, Unsafe leave home byself and Taxing effort to leave home Smoking Status: Former smoker [facility] Medical History (Updated 12/11/23 @ 09:30 [...] DAILY 04/25/19 [History Confirmed 12/11/23] omega-3s 300 ou-muv-hmy-other cidxz2z-xvbw oil 1,000 mg capsule ([place]-3 Fish Oil) 2 cap PO BID 04/25/19 [...] Breakdown Bed Appearance: Epithelial Tissue or Bridge, Gowen and Yellow Percent of Wound Bed Granulated/Red: [...] By: <Electronically signed by FERNY Mathews> 12/11/[address] [place] Work Phone: [phone]) 156-312510-10-2023 NoteHNO ID: [id number] Author: Winnie Guzmán PA-C Service: ? Author Type: Physician [employer] Rec[employer]iter Type: Progress Notes Filed: 06/20/2023 3:58 PM Note Text: PATIENT NAME: Harman Mcleod CLINIC NO.: [id number] ATTENDING PHYSICIAN: Wallace Stone MD DATE OF [...] Negative LVI, 2 SNL negative, ER and WI >95% positive, Her2 IHC 1+ Treatment History: [...] 6.4 10/24/2017 7.3 Al (more content not included)...[facility]10-10-2023 Nurse Note * Lina Lpoes MA - 06/20/2023 2:49 PM EDT Patient would like to know if she needs a mammogram? She was told in Oct that she would need one in6 months. Lina Lopes MA documented in this encounterDayton [facility]10-[facility] History of Present illness Narrative* Winnie Guzmán PA-C - 06/20/2023 2:30 PM EDT Images from the original note were not included. PATIENT NAME: Harman Mcleod [facility] NO.: [id number] ATTENDING PHYSICIAN: Wallace Stone MD DATE OF [...] Negative LVI, 2 SNL negative, ER and WI >95% positive, Her2 IHC 1+ Treatment History: [...] Range Status 06/20/2023 4.8 % Final Abs Stokes Date Value Ref Range Status 06/20/2023 0.49 [...] follow up. R Breast T1b,N0,M0- ER and WI >95% positive and Her-2 IHC 1+ tumor post Lumpectomy and SNL 10/2022. Reviewed path and she elected not to proceed with XRT and started Arimidex in 11/2022. Continues to tolerate well. Mammogram in 07/2023 (order placed). See us in 4 months. Plan is for 5 years of AI therapy Osteoporosis- On Prolia started 08/[address] Perry Vulvar high grade dysplasia- Follows Laboratory Sample [facility] On[facility] at [facility] [place] R Leg swelling and pain and h/o PVD- Follows vascular HTN--managed by PCP Winnie Guzmán PA-C CC: MD Mateus Spicer MD documented in this encounterDay[facility]09[facility] Evaluation note* Encounter Date Diagnosis Assessment [...] In addition I took her to the [facility] and performed a right iliac venogram which [...] offer her a second opinion at the [facility] vascular medicine program. She declined. I will see her as needed in the future. [facility] 06-29-2023 Evaluation note* Encounter Date Diagnosis [...] to call us with any concerns whatsoever. [facility] 06-06-2023 NoteHNO ID: [id number] Author: Wallace Stone MD Service: ? Author Type: Physician Type: Progress Notes Filed: 02/14/2023 10:49 AM Note Text: PATIENT NAME: Harman Mcleod CLINIC NO.: [id number] ATTENDING PHYSICIAN: Wallace Stone MD DATE OF [...] Negative LVI, 2 SNL negative, ER and WI >95% positive, Her2 IHC 1+ Treatment History: [...] 04/28/2020 1.12 BUN (mg/dL) (more content not included)...[facility]06-06-2023 History of Present illness Narrative* Wallace Stone MD - 02/14/2023 10:37 AM EDT Images from the original note were not included. PATIENT NAME: Harman Mcleod CLINIC NO.: [id number] ATTENDING PHYSICIAN: Wallace Stone MD DATE OF [...] Negative LVI, 2 SNL negative, ER and WI >95% positive, Her2 IHC 1+ Treatment History: [...] Range Status 02/14/2023 8.3 % Final Abs Stokes Date Value Ref Range Status 02/14/2023 0.86 [...] follow up. R Breast T1b,N0,M0- ER and WI >95% positive and Her-2 IHC 1+ tumor post Lumpectomy and SNL 10/2022. Reviewed path and she elected not to proceed with XRT and started Arimidex in 11/2022 and toleraing well. Plan for 5 years of therapy. Osteoporosis- On Prolia started 08/[address] Perry Vulvar high grade dysplasia- Follows Laboratory Sample [facility] Onc at [facility] [place] R Leg swelling and pain and h/o PVD- Follows vascular HTN Rash- refer to Derm Thank you for the kind referral. If there are any questions and or concerns please do not hesitate to contact me at [phone]. Wallace Stone MD Hematology/Medical Oncology [facility] I spent a total of 30 minutes on the date of the service which included preparing to see the patient, gkyq-dy-busi patient care, completing clinical documentation, obtaining and/or reviewing separately obtained history, performing a medically appropriate examination, counseling and educating the pat ient/family/caregiver, and ordering medications, tests, or procedures. CC: MD Mateus Spicer MD documented in this encounterDayton [facility]03-29-2023 Evaluation note* Encounter Date Diagnosis Assessment [...] primary care provider as well as her break off worker. We will continue to follow her along and see her again in a couple of months and see how she is doing with her pumps, conservative efforts, and weight management. She knows to call us in the meantime with any other additional concerns or complaints. [facility] 03-21-2023 [facility]* Encounter Date Diagnosis Assessment [...] specified soft tissue disorders (ICD-10 - M79.89) [facility] 03-08-2023 Miscellaneous Notes* Telephone Encounter - Adriana Pereira Pss - 11/16/2022 8:40 AM EST Called Vascular office spoke with Jessy. They have received this referral and have patient scheduledwith Dr Gonzales on 11/23 @ 10:00. Adriana Pereira Pss * Telephone Encounter - Kira Ko [facility] - 11/10/2022 9:38 AM EST Records faxed. * Telephone Encounter - Adriana Pereira [facility] - 11/10/2022 8:46 AM EST Janeth: Information ready for you. Adriana Pereira Pss * Telephone Encounter - Carlos Brooks - 11/09/2022 2:44 PM EST Vascular Consult [facility] Previous patient of Dr. Mendez 3 years or more. Janeth/Dudley: Can you please refer patient and follow up? Thanks! Carlos Brooks documented in this encounterDayton Osteopathic Hospital03-01-2023 NoteHNO ID: [id number] Author: Wallace Stone MD Service: ? Author Type: Physician Type: Progress Notes Filed: 11/09/2022 2:24 PM Note Text: PATIENT NAME: Harman Mcleod CLINIC NO.: [id number] ATTENDING PHYSICIAN: Wallace Stone MD DATE OF SERVICE: November 09, [address] Banks referring provider defined for this encounter. here is an update on a follow up visit on female Harman Mcleod at the clinic 11/09/2022 Diagnosis: T1b, N0, M0- R breast, Tumor 9 mm, Grade 2, Margins negative, Negative LVI, 2 SNL negative, ER and WI >95% positive, Her2 IHC 1+ Treatment History: [...] (mg/dL) Date Value 0 (more content not included)...[facility]03-01-2023 History of Present illness Narrative* Wallace Stone MD - 11/09/2022 2:00 PM EST Images from the original note were not included. PATIENT NAME: Harman Mcleod CLINIC NO.: [id number] ATTENDING PHYSICIAN: Wallace Stone MD DATE OF SERVICE: November 09, 2022 Dear No referring provider defined for this encounter. here is an update on a follow up visit on female Harman Mcleod at the clinic 11/09/2022 Diagnosis: T1b, N0, M0- R breast, Tumor 9 mm, Grade 2, Margins negative, Negative LVI, 2 SNL negative, ER and WI >95% positive, Her2 IHC 1+ Treatment History: [...] follow up. R Breast T1b,N0,M0- ER and WI >95% positive and Her-2 IHC 1+ tumor post Lumpectomy and SNL 10/2022. Reviewed path and she may skip radiation and also discussed hormonal; therapy with an AI and she will start Arimidex. Discussed adverse events and she wishes to proceed. Osteoporosis- On Prolia started 08/[address] Perry Vulvar high grade dysplasia- Follows Laboratory Sample [facility]rier Onc at [place] and next appointment 11/24/2022 CRI R Leg swelling and pain and h/o PVD- refer to vascular HTN Thank you for the kind referral. If there are any questions and or concerns please do not hesitate to contact me at [phone]. Wallace Stone MD Hematology/Medical Oncology [facility] [place] spent a total of 30 minutes on the date of the service which included preparing to see the patient, beta-az-ekws patient care, completing clinical documentation, obtaining and/or reviewing separately obtained history, performing a medically appropriate examination, counseling and educating the pat ient/family/caregiver, and ordering medications, tests, or procedures. CC: MD Mateus Spicer MD documented in this encounterDayton Osteopathic Hospital02-08-2023 NoteOPERATIVE NOTE OPERATION DATE: 10/19/2022 PREOPERATIVE DIAGNOSIS: Right breast cancer. POSTOPERATIVE DIAGNOSIS: Right breast cancer. PROCEDURE: Needle localized right breast lumpectomy with sentinel lymph node biopsy. SURGEON: Iliana Gagnon M.D. ANESTHESIA: General laryngeal mask airway. AUTOMATED PROCESS OPERATOR: SADI Hammer ESTIMATED BLOOD LOSS: Less than [...] in good condition. CC: Mateus Perry M.D.[facility] [id number] NoteEXAMINATION: XR CHEST 2 V HISTORY: Pre-surgery [...] Electronically authenticated by: ALFONSO GEORGE Date: 2022-10-11 12:11[facility]01-13-2023 NoteHNO ID: [id number] Author: Marcin Shah MD Service: ? Author Type: Physician Type: Progress Notes Filed: 2022 6:06 AM Note Text: Radiation Oncology - New Patient/Consult Note PATIENT NAME: Harman Mcleod PATIENT REQUESTING PHYSICIAN: Dr. 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 PATIENT IDENTIFICATION: This patient was seen in the Department of Radiation Oncology at the [facility] with Marcin Shah MD. She was accompanied today by her family. Final recommendations will be communicated back to the requesting physician by way of the shared medical record, or letter to requesting physician via US mail. HISTORY OF PRESENT ILLNESS: Ms. Mcleod is an 82-year-old woman from [place], [place] who was discovered on screening mammogram from July 2022 to have an abnormality within the anterior upper outer quadrant of the right breast. This was confirmed on ultrasound and she underwent stereotactic biopsy on 08/19/2022 with pathology revealing intermediate grade IDC that was ER/WI positive HER2 negative. She has met with [...] acetaminophen (TYLENOL EXTRA STRENGTH (more content not included)...[facility]01-12-2023 History of Present illness Narrative* Marcin Shah MD - 09/22/2022 11:38 PM EST Images from the original note were not included. Radiation Oncology - New Patient/Consult Note PATIENT NAME: Harman Mcleod PATIENT Signed: Marcin Shah MD I spent a total of 60 minutes on the date of the service which included preparing to see the patient, esuz-op-faqa patient care, and counseling and educating the patient/family/caregiver. This document has been created with the use of voice recognition technology. It may contain inaccuracies, misspellings, inaccurate syntax or inappropriate word context that are a result of the inadequacies/shortcomings of said technology/software. documented in this encounterDayton Osteopathic Hospital01-12-2023 NoteHNO ID: [id number] Author: Wallace Stone MD Service: ? Author Type: Physician Type: Progress Notes Filed: 09/22/2022 5:19 PM Note Text: PATIENT NAME: Harman Mcleod CLINIC NO.: [id number] ATTENDING PHYSICIAN: Wallace Stone MD DATE OF [...] provisional grade 1 through 2, ER and WI greater than 95% positive, HER2/holden negative with an IHC score of 1+ and FISH negative [facility]. This patient was subsequently referred to Dr. Iliana Gagnon for surgical consultation. Patient denies any previous history of abnormal mammograms and or breast biopsy. She has had a recent bone density in [place] and was diagnosed with osteoporosis and started on Prolia as well. Patient has a sister who was diagnosed with breast cancer at the age of 84 and her daughter diagnosed with breast cancer at the age of 37. She quit smoking approximately 4 years ago. 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 [...] mouth daily at bedtime. Cut in half Pnkex-3-SVG-EPA-Fish Oil 1,000 mg (120 mg-180 mg) cap [...] mellitus, type 2) (HCC) (more content not included)...[facility]01-12-[facility]23 History of Present illness Narrative* Wallace Stone MD - 09/22/2022 5:10 PM EST Images from the original note were not included. PATIENT NAME: Harman Mcleod CLINIC NO.: [id number] ATTENDING PHYSICIAN: Wallace Stone MD DATE OF [...] provisional grade 1 through 2, ER and WI greater than 95% positive, HER2/holden negative with an IHC score of 1+ and FISH negative at [facility]. This patient was subsequently referred to Dr. Iliana Gagnon for surgical consultation. Patient denies any previous history of abnormal mammograms and or breast biopsy. She has had a recent bone density in [place] and was diagnosed with osteoporosis and started on Prolia as well. Patient has a sister who was diagnosed with breast cancer at the age of 82 and her daughter diagnosed with breast cancer at the age of 37. She quit smoking approximately 4 years ago. 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 [...] mouth daily at bedtime. Cut in half Xubwr-2-OUU-EPA-Fish Oil 1,000 mg (120 mg-180 mg) cap [...] ductal carcinoma, provisional grade 1-2, ER and WI greater than 95% positive, HER2/holden negative with [...] me to participate in Mrs. Harman Mcleod [facility], ifthere are any questions or concerns please do not hesitate to contact me at the number below. Wallace Stone M.D. Hematology/Medical Oncology [facility] [phone] CC: MD Mateus Spicer MD I spent a total of 60 minutes on the date of the service which included preparing to see the patient, feux-qd-yvpd patient care, completing clinical documentation, obtaining and/or reviewing separately obtained history, performing a medically appropriate examination, counseling and educating the pat ient/family/caregiver, ordering medications, tests, or procedures, and communicating with other HCPs (not separately reported). [facility] Miscellaneous Notes* Telephone Encounter - Lars [...] involved. Lars Wilkerson RN documented in [facility] NoteChief Complaint consultation for right breast [...] biopsy that r evealed invasive ductal carcinoma, ER/WI +; Her2 holden negative; patient denies change [...] and diastolic (congestive) heart failure Atherosclerosis of galena artery of extremity BMI 36.0-36.9,adult Brain stem vertigo Breast cancer of (more content not included)...[facility] Comment on above:Result Comment: Electronically Signed By: CHELSI CARDONA, Iliana Castillo.veto\Date and Time Signed: 09/09/22 16:38 [id number] History of Present illness Narrative* Brody Ken [...] Plunkett MD - 06/28/2022 9:08 AM EDT Laboratory Sample [facility] Oncology Attending Note Patient seen and evaluated [...] per Deborah/ Dr. Garza. documented in this encounter[facility] Phone: 1(501) 989-410110-18-2022 Hospital Discharge instructions* Discharge Instructions* Brody Ken [...] urinate call your doctor documented in this encounterCAR[facility] Phone: 1(348) 733-554904-04-2022 History of Present illness Narrative* Brody Ken [...] Plunkett MD - 12/13/2021 2:12 PM EDT Laboratory Sample Carrier Oncology Attending Note Patient seen and evaluated [...] chart for or 12/13/21 documented in this [facility] Phone: 1(885) 271-862004-04-2022 Evaluation note* Diagnosis Vaginectomy w/ Cysto 4/4/22- Primary Other postprocedural status documented in this encounter [employer] Phone: 1(206) 985-874604-04-2022 Hospital Discharge instructions* Instructions* Brody Ken RN [...] of: May 19, 2021 Content Version: 13.2 Calligo. Care instructions adapted under license by [employer]. If you have questions about a medical condition or this instruction, always ask your healthcare professional. [employer] disclaims any warranty or liability for your [...] urinate call your doctor documented in this [facility] [employer] Work Phone: 1(895) 123-270403-28-2022 History of Present illness Narrative* YANA Wallis [...] Disease: Yes, stents x 3, Dr. Keyes ([facility]) Hypertension: yes Active smoker: Quit 2017, [...] pcp potassium 3.3,wbc 12.6 documented in this [facility] Phone: [phone] Hospital Discharge instructions* Instructions* Yoanna Diaz, YANA [...] drive you home after your procedure. Your dairy truck driver must be 18 years of [...] questions, call the Pre-Admission Testing Unit at [phone]. Day of Surgery/Procedure As a patient at [facility] you can expect quality medical and nursing care that is centered on your individual needs. Our goal is to make your surgical experience as comfortableas possible . Directions to the Surgery Center [facility] is located at [address] [place] [address]. Please pull into the Emergency parking lot and stop at the painter maintenance richards. We offer free painter maintenance service for all our surgery patients, if you choose not to have painter maintenance parking we have additional parking across the street.You will enter the facility following the [facility] sign. Please stop at the customer retention representative desk where you will be checked in by the staff. If you have any questions please call [phone]. Transportation after your procedure. You will need a friend or family member to drive you home after your procedure. Your dairy truck driver must be18 years of age [...] You may shave your face or neck. Lilburn your teeth but do not swallow water. [...] or the day of surgery, please call [phone], or [phone] documented in this [facility] Work Phone: 1([phone]) 352-128910-05-2021 History of Present illness Narrative* Parvin Rogel RN - 06/15/2021 10:[address] Kamla gan, pt cleared for phase II * Alla Dickerson DO - 06/15/2021 9:42 AM EDT OB Resident Progress Note Patient may be discharged home once she has met criteria in the PACU. Please perfect serve or page CYBER DEFENSE FORENSICS ANALYST resident listed below with any questions, concerns, or if patient has not met PACU discharge criteria in 2-3 hours. . Please page first. Alla Dickerson DO CYBER DEFENSE FORENSICS ANALYST Resident PGY3 Pager: [phone] [facility] 06/15/2021, 9:42 AM documented in this [facility] Phone: 1([phone]) 147-728010-04-2021 Hospital Discharge instructions* Instructions* Alla Dickerson DO [...] cleared by your physician documented in this [employer] Phone: 1(689) 443-524209-01-2021 Hospital Discharge instructions* Instructions* Na Cabezas APRN - CREDIT AND COLLECTIONS REPRESENTATIVE - 05/12/2021 Pre-operative Instructions Please arrive at [...] public transportation ALONE is not acceptable. -Your dairy truck driver must be 18 years of [...] Day of Surgery/Procedure As a patient at [facility] you can expect quality medical and nursing care that is centered on your individual needs. Our goal is to make your surgical experience as comfortableas possible . Directions to the Surgery Center [facility] is located at [address] [place] [address]. Please pull into the Emergency/Surgery Center parking lot and stop at the painter maintenance richards. We offer free painter maintenance service for all our surgery patients, if you choose not to have painter maintenance parking we have additional parking across the [...] pharmacy bottles in a zip lock bag. Lilburn your teeth but do not swallow water. [...] DAY OF your surgery, you may call [phone] documented in this [employer] Phone: 1(575) 440-813109-01-2021 History of Present illness Narrative* Mandy Baker [...] Pneumonia PVD (peripheral vascular disease) ([facility]) Thyroid disease Under care of team 05/12/[address] [facility]-last visit apr 2021 Under care of team 05/12/2021 [facility] Varicose vein of leg Patient was evaluated in [facility] & anesthesia guidelines were applied. NPO guidelines, medication instructions and scheduled arrival time were reviewed with patient. Anesthesia contacted: Yes I spoke with Dr. Rondon. Patient history and pertinent findings reviewed. Patient with history of CAD, CHF, stress test and cardiac echo (results not in Epic, from outside provider), cardiac stentx 3. Last saw break off worker in December 2020. On Eliquis and aspirin prescribed from her break off worker. Medical or cardiac clearance ordered: cardiac FERNY Andres CNP 05/12/21 2:43 PM documented in this [facility] Work Phone: evaluation + Plan noteGeneral Surgery [place] Evaluation + Plan note Future Appointments Appointment Date:11/08/2022 02:00:00 PM Scheduled Provider:Iliana GAGNON MD Location:[facility] Appointment Type:[place] [address] General Surgery [place] Evaluation + Plan note Future Appointments Appointment Date:11/22/2022 01:40:00 PM Scheduled Provider:Iliana GAGNON MD Location:[facility] Appointment Type: Established 15 General Surgery [place] Evaluation note* Diagnosis Pre-op chest exam Pre-operative respiratory examination documented in this encounter [employer] Phone: [email or web address] note* Diagnosis S/p Partial vaginectomy with Ultrasonic Scalpel 06/15/21- 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, 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 documented in this encounter [employer] Phone: [email or web address] note* Diagnosis Pre-op chest exam Pre-operative respiratory examination documented in this encounter [employer] 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 documented in this encounter [employer] [facility] Phone: [email or web address] note* Diagnosis 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, estrogen receptor positive (HCC)- Primary documented in this encounter [facility] [place] [facility]* Diagnosis 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 breast in female, estrogen receptor positive (HCC)- Primary documented in this encounter [facility] [place] [facility]* Diagnosis 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, estrogen receptor positive (HCC)- Primary Claudication in peripheral vascular disease (HCC) Peripheral vascular disease, unspecified documented in this encounter [facility] assessment information [facility] Work Phone: Evaluation noteNo InformationNort [employer] 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, estrogen receptor positive (HCC)- Primary Rash Rash and other nonspecific skin eruption Other eczema Stage 3a chronic kidney disease (HCC) documented in this encounter [facility] [place] [facility]* Diagnosis Malignant neoplasm [...] veins of both legs with edema acute [place] Work Phone: Evaluation note* Diagnosis Onset Date Resolution Status Altered mental status acute Diabetes mellitus acute Edema of both lower legs acu te Inflammation acute Leg ulcer, left acute Leg wound, right acute Open wound of left thigh acu te PAD (peripheral artery disease) acute Uses walker acute Varicose veins of both legs with edema acute [place] Work Phone: Evaluation note* Diagnosis Hav (hallux abducto valgus), left- Primary Venous insufficiency Unspecified venous (peripheral) insufficiency Acquired deformity of left toe 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 to underlying condition with diabetic polyneuropathy, 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 oysterman insulin use ([facility]) Pain due to onychomycosis of toenails of both feet [facility] Diagnosis 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)- Primary Diabetes mellitus due to underlying condition with diabetic polyneuropathy, 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 [facility] insulin use (CMS/HCC) Pain due to onychomycosis [...] RENAL DSA'S, ANGIOPLAS TIES & STENTING 04-25-2019 [employer] Other History general Narrative - Reported* Type [...] History VAGINAL ABLASION OF CANCER CELL S [employer] Other Hospital course Narrative No data available for this section [facility] Discharge instructions No data available for this section General Surgery [place] Progress note No data available for this section General Surgery [facility] Reason for referral (narrative) Referred by: Iliana GAGNON MD Referred by: Iliana GAGNON MD General Surgery [facility] Repnos for referral (narrative)* Diagnostic Procedure Only (Routine) - Pending Review Specialty Diagnoses / Procedures Referred By Jacinta fernandez Referred To Contact [facility] Diagnoses 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, estrogen receptor positive (HCC) Procedures MAGNO DIAGNOSTIC BILATERAL DIAGNOSTIC MAMMOGRAPHY COMPUTER-AIDED DETCJ Winnie Guzmán PA-C [address] [place] [address] [place] [address] [facility] [address] [place] [address] Referral ID Status Reason Start Date Expiration Date Visits Requested Visits Authorized [id number] Pending Review Auto-Generat ed Referral 3 07/19/2024 1 1 [facility] for visit Narrative* Auth/Cert Specialty Diagnoses / Procedures Referred By Jacinta fernandez Referred To Contact Diagnoses Vaginal dysplasia VAGINAL DYSPLASIA Procedures [place] OFFICE/OUTPT VISIT,PROCEDURE ONLY WI COMPLETE REMOVAL OF VAGINA WALL WI CYSTOURETHROSCOPY CYSTOSCOPY, VAGINECTOMY Emma Garza MD [address] [facility] [address] [place] [address] [employer] [address] [place] [address] Referral ID Status Reason Start Date Expiration Date Visits Re quested Visits Authorized [id number] 1 1 [employer] Phone: Summary Purpose Family History No Family History Records Found Relationship Condition Age at Onset Recorded Date/T josephine father Unknown mother Unknown Advance Directives No Advanced Directives Records FoundLatest Code Status on File Code Status Date Activated Date Inactivated Comments Full Code 06/28/2022 6:57 AM Documents on File Type Date Recorded Patient Manual Qa Tester Expl anation Advance Directive(s) 01/16/2017 3:59 PM Documents on File Type Date Recorded Patient Manual Qa Tester Expl anation Advance Directive(s) 01/16/2017 3:59 PM [...] [address] [place] [address] Specialty Diagnoses / Procedures Referred By Contac t Referred To Contact Cardiology Diagnoses Pre-op chest exam Procedures EKG 12 lead Kimmie, Lat[place], PA-C [address] [place] [address] Referral ID Status Reason Start Date Expiration Date Visits Re quested Visits Authorized [id number] Open 11/22/2021 11/22/2022 1 1 Specialty Diagnoses / Procedures Referred By Contac t Referred To Contact Vascular Surgery Diagnoses Claudication in peripheral vascular disease (HCC) Procedures CONSULT TO VASCULAR SURGERY OFFICE/OUTPATIENT [facility] 60-74 MINUTES Wallace Stone MD [address] [place] [address] Referral ID Status Reason Start Date Expiration Date Visits Requested Visits Authorized [id number] Authorized PCP Requested Referral 11/16/2022 11/09/2023 1 1 Specialty Diagnoses / Procedures Referred By Contac t Referred To Contact Dermatology Diagnoses Rash Other eczema Procedures CONSULT TO DERMATOLOGY OFFICE/OUTPATIENT [facility] 60-74 MINUTES Wallace Stone MD [address] [place] [address] Referral ID Status Reason Start Date Expiration Date Visits Requested Visits Authorized [id number] Authorized PCP Requested Referral 02/14/2023 02/14/2024 1 [...] and content) DATE CREATED AUTHOR 02/05/2021 [facility] DATE CREATED AUTHOR AUTHOR'S ORGANIZ ATION 01/22/2023 [facility] DATE CREATED AUTHOR AUTHOR'S ORGANIZ ATION 06/22/2023 [facility] DATE CREATED AUTHOR AUTHOR'S ORGANIZ ATION 06/23/2023 [facility] DATE CREATED AUTHOR AUTHOR'S ORGANIZ ATION 07/13/2023 [facility] DATE CREATED AUTHOR AUTHOR'S ORGANIZ ATION 05/03/2024 [facility] DATE CREATED AUTHOR AUTHOR'S ORGANIZ ATION 09/01/2024 [facility] EPIC DATE CREATED AUTHOR AUTHOR'S ORGANIZ ATION 09/05/2024 [facility] Reason for Visit (unrecogniz ed section and content) Status Reason Specialty Diagnoses / Procedures Re ferred By Contact Referred To Contact Diagnoses 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 Procedures WI REMOVE VAGINA WALL, PARTIAL WI COLPOSCOPY,CERVIX W/ADJ VAGINA PARTICAL VAGINECTOMY WITH ULTRASONIC SCAPEL VAGINAL COLPOSCOPY WITH MICROSCOPE Kin Abarca MD [address] [facility] [address] [place] [address] [facility] Specialty Diagnoses / Procedures Referred By Contac t Referred To Contact Diagnoses Vaginal dysplasia VAGINAL DYSPLASIA Procedures WI OFFICE/OUTPT VISIT,PROCEDURE ONLY WI DESTRUCT,VAGINAL LESION(S),SIMPLE CO2 LASER VAPORIZATION OF LESIONS ([facility] CONF# [id number] - JEREMIAS) Emma Garza MD [address] [facility] [address] [place] [address] [facility] [address] [place] [address] Referral ID Status Reason Start Date Expiration Date Visits Re quested Visits Authorized [id number] 1 1 Reason Comments Care Coordination Surgery [...] 25 g 1 06/28/2022 bacitracin-polymyxin b (POLYSPORIN) 500-32231 UNIT/GM ointment Apply topically 2 times daily. [...] g 0 06/28/2022 06/28/2022 bacitracin-polymyxin b (POLYSPORIN) 500-37180 UNIT/GM ointment Apply topically 2 times daily. [...] Attending Provider Active art: March 26, 2024 Field Support Specialist Relationship Specialty Start Date End Date Mateus Perry MD [address] [facility] [place] [address] PCP - General Family Medicine 03/04/21 Field Support Specialist Relationship Specialty Start Date End Date Mateus Perry MD [address] [facility] [place] [address] PCP - General Family Medicine 03/04/21 Field Support Specialist Relationship Specialty Start Date End Date Mateus Perry MD [address] [facility] [place] [address] PCP - General Family Medicine 03/04/21 Field Support Specialist Relationship Specialty Start Date End Date Mateus Perry MD [address] [facility] [place] [address] PCP - General Family Medicine 03/04/21 Field Support Specialist Relationship Specialty Start Date End Date Mateus Perry MD PCP - General Family Medicine 01/05/17 Field Support Specialist Relationship Specialty Start Date End Date Mateus Perry MD PCP - General Family Medicine 01/05/17 Field Support Specialist Relationship Specialty Start Date End Date Mateus Perry MD PCP - General Family Medicine 01/05/17 Field Support Specialist Relationship Specialty Start Date End Date Mateus Perry MD PCP - General Family Medicine 01/05/17 Field Support Specialist Relationship Specialty Start Date End Date Mateus Perry MD PCP - General Family Medicine 01/05/17 Field Support Specialist Relationship Specialty Start Date End Date Mateus Perry MD PCP - General Family Medicine 01/05/17 Field Support Specialist Relationship Specialty Start Date End Date Mateus Perry MD [address] [place] [address] PCP - General Family Medicine 03/04/21 Team Status: Inactive Member Role Status Dates Mateus Perry MD Primary Care Provider Active Christiano Gonzales MD Attending Provider Active Field Support Specialist Relationship Specialty Start Date End Date Mateus Perry MD PCP - General Family Medicine 01/05/17 Field Support Specialist Relationship Specialty Start Date End Date Mateus Perry MD PCP - General Family Medicine 01/05/17 Team Status: Inactive Member Role Status Dates Mateus Perry MD Primary Care Provider Active Start: May 01, 2024 End: May 01, 2024 Christiano Gonzales MD Attending Provider Active Start: May 01, 2024 End: May 01, 2024 Field Support Specialist Relationship Specialty Start Date End Date Mateus Perry MD [address] [place] [address] PCP - General Family Medicine 02/14/24 Field Support Specialist Relationship Specialty Start Date End Date Mateus Perry MD [address] [place] [address] PCP - General Family Medicine 02/14/24 Field Support Specialist Relationship Specialty Start Date End Date Mateus Perry MD [address] [place] [address] PCP - General Family Medicine 02/14/24 Field Support Specialist Relationship Specialty Start Date End Date Mateus Perry MD [address] [place] [address] PCP - General Family Medicine 02/14/24 Source Comments (unrecognize d section and content) In the event this informatio n is protected by the Federal Confidentiality of Alcohol and Drug Abuse Patient Records regulations: The Federal rules restrict any use of the information to criminally investigate or prosecute any alcohol or drug abuse patient.[facility] the event this information is protected by the Federal Confidentiality of Alcohol and Drug Abuse Patient Records regulations: The Federal rules restrict any use of the information to criminally investigate or prosecute any alcohol or drug abuse patient.[facility] the event this information is protected by the Federal Confidentiality of Alcohol and Drug Abuse Patient Records regulations: The Federal rules restrict any use of the information to criminally investigate or prosecute any alcohol or drug abuse patient.[facility] Hospital[facility] the event this information is protected by the Federal Confidentiality of Alcohol and Drug Abuse Patient Records regulations: The Federal rules restrict any use of the information to criminally investigate or prosecute any alcohol or drug abuse patient.[facility] the event this information is protected by the Federal Confidentiality of Alcohol and Drug Abuse Patient Records regulations: The Federal rules restrict any use of the information to criminally investigate or prosecute any alcohol or drug abuse patient.[facility] Hospital[facility] the event this information is protected by the Federal Confidentiality of Alcohol and Drug Abuse Patient Records regulations: The Federal rules restrict any use of the information to criminally investigate or prosecute any alcohol or drug abuse patient.[facility] Hospital[facility] the event this information is protected by the Federal Confidentiality of Alcohol and Drug Abuse Patient Records regulations: The Federal rules restrict any use of the information to criminally investigate or prosecute any alcohol or drug abuse patient.[facility] Hospital[facility] the event this information is protected by the Federal Confidentiality of Alcohol and Drug Abuse Patient Records regulations: The Federal rules restrict any use of the information to criminally investigate or prosecute any alcohol or drug abuse patient.[facility] Goals (unrecognized section and content) Goals [...] BE BASED ON THE PRIMARY CLINICAL RECORDS. [facility] [employer] [facility]. provides no warranty or guarantee of the accuracy or completeness of information in this document.
[2024-09-06 06:44] LABS: Basophils Percent Auto 0.3 % (0.2-2.0); Eosinophils Absolute Auto 0.1 10^3/uL (0.0-0.7); Eosinophils Percent Auto 0.7 % (0.9-7.0); Hematocrit 28.8 % (36.0-48.0); Hemoglobin 9.4 g/dL (12.0-16.0); Immature Granulocytes Abs Auto 0.06 10^3/uL (0.00-0.03); Immature Granulocytes Pct Auto 0.6 % (0.0-0.5); Lymphocytes Absolute Auto 1.8 10^3/uL (1.2-3.8); Lymphocytes Percent Auto 18.1 % (20.5-60.0); Mean Corpuscular HGB Conc 32.6 g/dL (29.9-35.2); Mean Corpuscular Hemoglobin 30.8 pg (26.7-34.0); Mean Corpuscular Volume 94.4 fL (81.0-99.0); Mean Platelet Volume 9.5 fL (9.5-13.5); Monocytes Percent Auto 10.4 % (1.7-12.0); Neutrophils Absolute Auto 6.9 10^3/uL (1.4-6.5); Neutrophils Percent Auto 69.9 % (43.0-75.0); Platelet Count 195 10^3/uL (150-450); Red Blood Count 3.05 10^6/uL (4.20-5.40); Red Cell Distribution Width 14.7 % (11.0-15.0); White Blood Count 9.9 10^3/uL (4.0-11.0)
[2024-09-06 07:10] LABS: Alanine Aminotransferase 8 U/L (14-59); Albumin Globulin Ratio 0.6; Albumin Level 2.4 g/dL (3.4-5.0); Alkaline Phosphatase 63 U/L (46-116); Anion Gap 14.1; Aspartate Amino Transferase 16 U/L (15-37); BUN Creatinine Ratio 17.5; Bilirubin Total 0.6 mg/dL (0.2-1.0); Calcium 8.8 mg/dL (8.5-10.1); Carbon Dioxide 27.1 mmol/L (21.0-32.0); Chloride 102 mmol/L (98-107); Estimated GFR (African America 30 (>=60 mL/min/1.73m^2); Estimated GFR (Non-African Ame 25 (>=60 mL/min/1.73m^2); Globulin 3.9 g/dL; Glucose 75 mg/dL (74-106); Potassium 4.2 mmol/L (3.5-5.1); Sodium 139 mmol/L (136-145); Total Protein 6.3 g/dL (6.4-8.2); Troponin I High Sensitivity 15.2 pg/mL (4.0-51.3)
[2024-09-06] MEDS: 0.9 % SODIUM CHLORIDE 1,000 ML 100 ML IV (07:50)
--- NOTE | 2024-09-06 08:39 | P.HP_ITS ---
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 Also increasing weakness at home. Presented to the emergency room found to have cellulitis of her left arm this is despite being on antibiotics for her low- grade infection on the surface around her defibrillator site. She was placed on Bactrim and doxycycline for that. To despite those oral antibiotic she still developed cellulitis of her left hand with increasing swelling. Ultrasound was negative I saw patient up in the medical surgical floor she feels much better. She can move her hand now. She was unable to do that yesterday secondary to pain. Opioid HPI Opioid Management Most Recent Pain and Opioid Data: Last Pain Scale 5 09/06/24 07:00 09/06/24 Last Pain Intensity 9 10/17/23 09:55 10/17/23 Last Pain Assessment 09/06/24 08:00 Last ORT Total Score 0 09/05/24 20:18 09/05/24 Last ORT Risk Category Low Risk 09/05/24 20:18 09/05/24 PFSH PFSH Medical History (Updated 09/05/24 @ 20:40 by Zena Bhakta) Defibrillator discharge ?Z45.02 - Encounter for adjustment and management of automatic implantable cardiac defibrillator (ICD-10) Lower gastrointestinal hemorrhage ?K92.2 - Gastrointestinal hemorrhage, unspecified (ICD-10) Anemia in stage 4 chronic kidney disease ?N18.4 - Chronic kidney disease, stage 4 (severe) (ICD-10) ?D63.1 - Anemia in chronic kidney disease (ICD-10) Abscess, gluteal, right ?L02.31 - Cutaneous abscess of buttock (ICD-10) Morbid obesity ?E66.01 - Morbid (severe) obesity due to excess calories (ICD-10) History of tobacco abuse ?Z87.891 - Personal history of nicotine dependence (ICD-10) Acute renal failure ?N17.9 - Acute kidney failure, unspecified (ICD-10) Elevated diaphragm ?J98.6 - Disorders of diaphragm (ICD-10) Pleural effusion ?J90 - Pleural effusion, not elsewhere classified (ICD-10) COPD with acute exacerbation ?J44.1 - Chronic obstructive pulmonary disease with (acute) exacerbation (ICD-10) Acute hypoxic respiratory failure ?J96.01 - Acute respiratory failure with hypoxia (ICD-10) Acute on chronic diastolic CHF (congestive heart failure) ?I50.33 - Acute on chronic diastolic (congestive) heart failure (ICD-10) Type 2 diabetes mellitus ?E11.9 - Type 2 diabetes mellitus without complications (ICD-10) Hypoxemia ?R09.02 - Hypoxemia (ICD-10) Abscess ?L02.91 - Cutaneous abscess, unspecified (ICD-10) Abscess ?L02.91 - Cutaneous abscess, unspecified (ICD-10) Cellulitis and abscess of left leg ?L03.116 - Cellulitis of left lower limb (ICD-10) ?L02.416 - Cutaneous abscess of left lower limb (ICD-10) Hyperkalemia ?E87.5 - Hyperkalemia (ICD-10) Moderate protein-calorie malnutrition ?E44.0 - Moderate protein-calorie malnutrition (ICD-10) CHF (congestive heart failure) ?I50.9 - Heart failure, unspecified (ICD-10) Hypoxia ?R09.02 - Hypoxemia (ICD-10) Acute infective exacerbation of chronic obstructive airway disease ?J44.1 - Chronic obstructive pulmonary disease with (acute) exacerbation (ICD-10) Weakness ?R53.1 - Weakness (ICD-10) Acute right hip pain ?M25.551 - Pain in right hip (ICD-10) Rheumatoid arthritis flare ?M06.9 - Rheumatoid arthritis, unspecified (ICD-10) Difficulty in walking ?R26.2 - Difficulty in walking, not elsewhere classified (ICD-10) Arthralgia ?M25.50 - Pain in unspecified joint (ICD-10) CAD, multiple vessel ?I25.10 - Atherosclerotic heart disease of [place] coronary artery without angina pectoris (ICD-10) Atrial fibrillation ?I48.91 - Unspecified atrial fibrillation (ICD-10) COPD (chronic obstructive pulmonary disease) ?J44.9 - Chronic obstructive pulmonary disease, unspecified (ICD-10) Gouty arthritis ?M10.9 - Gout, unspecified (ICD-10) Hypothyroidism (acquired) ?E03.9 - Hypothyroidism, unspecified (ICD-10) Hypokalemia ?E87.6 - Hypokalemia (ICD-10) Iron deficiency anemia ?D50.9 - Iron deficiency anemia, unspecified (ICD-10) Surgical History (Updated 09/05/24 @ 20:41 by Zena Bhakta) History of cardiac defibrillator placement ?Z95.810 - Presence of automatic (implantable) cardiac defibrillator (ICD-10) H/O right mastectomy ?Z90.11 - Acquired absence of right breast and nipple (ICD-10) H/O: hysterectomy ?Z90.710 - Acquired absence of both cervix and uterus (ICD-10) History of appendectomy ?Z90.49 - Acquired absence of other specified parts of digestive tract (ICD- 10) H/O heart artery stent ?Z95.5 - Presence of coronary angioplasty implant and graft (ICD-10) Family History (Updated 10/14/23 @ 23:05 by Zena Bhakta) Father Family history of CHF (congestive heart failure) Family history of cancer Family history of hypertension Sister Family history of cancer Family history of diabetes mellitus Mother Family history of diabetes mellitus Family history of hypertension Social History (Updated 02/13/24 @ 18:21 by Kira Meza LPN) Within the past year, how often did you have a drink containing alcohol: never Within the past year, how often did you have six or more drinks on one occasion: never Score interpretation: A score less than 3 is consistent with normal alcohol consumption. Smoking status: Former smoker Non-prescribed substance use: denies use Previous occupational history: retired Highest level of school completed/degree received: high school graduate Are you now , , , , never or living with a partner: In a typical week, how many times do you talk on the telephone with family, friends, or neighbors: 3 or more times per week How often do you get together with friends or relatives: 3 or more times per week How often do you attend rastafarian or mormon services: 4 or more times per year Little interest or pleasure in doing things: not at all Feeling down, depressed, or hopeless: not at all Feel stressed/tense/nervous/anxious/difficulty sleeping: not at all Do you think of yourself as: straight/heterosexual Gender Identity: female Meds Home Medications and Allergies Home Medications ?Medication ?Instructions ?Recorded ?Confirmed ?Type albuterol sulfate 2.5 mg/3 mL 2.5 mg inhalation Q6H PRN 03/04/23 09/05/24 History (0.083 %) solution for nebulization shortness of breath or wheezing anastrozole 1 mg tablet 1 mg PO DAILY 03/04/23 09/05/24 History aspirin 81 mg tablet,delayed 81 mg PO DAILY 03/04/23 09/05/24 History release (Adult Low Dose Aspirin) furosemide 40 mg tablet 40 mg PO Q12H 03/04/23 09/05/24 History isosorbide mononitrate 60 mg 60 mg PO DAILY 03/04/23 09/05/24 History tablet,extended release 24 hr levothyroxine 112 mcg tablet 112 mcg PO .ACB 03/04/23 09/05/24 History liothyronine 5 mcg tablet 10 mcg PO .ACB 03/04/23 09/05/24 History metoprolol succinate 200 mg 200 mg PO DAILY 03/04/23 09/05/24 History tablet,extended release 24 hr sucralfate 1 gram tablet 1 g PO ACHS 03/04/23 09/05/24 History febuxostat 40 mg tablet 40 mg PO DAILY 08/20/23 09/05/24 History insulin glargine 100 unit/mL 16 unit subcut QAM 10/14/23 09/05/24 History subcutaneous solution (Lantus U-100 Insulin) insulin aspart U-100 100 unit/mL 3 - 15 unit subcut ACHS 10/17/23 09/05/24 History (3 mL) subcutaneous pen (Novolog FlexPen U-100 Insulin aspart) amlodipine 10 mg tablet 10 mg PO .qd 02/13/24 09/05/24 History apixaban 5 mg tablet (Eliquis) 2.5 mg (1/2 x 5 mg) PO BID #60 tabs 02/19/24 09/05/24 Rx hydralazine 50 mg tablet 50 mg PO TID #90 tabs 02/19/24 09/05/24 Rx ferrous sulfate 325 mg (65 mg 325 mg PO BID 06/26/24 09/05/24 History iron) tablet glimepiride 4 mg tablet 4 mg PO BID 06/26/24 09/05/24 History metformin 500 mg tablet 500 mg PO BIDWM 06/26/24 09/05/24 History simvastatin 40 mg tablet 40 mg PO .QHS 06/26/24 09/05/24 History spironolactone 25 mg tablet 12.5 mg PO QAM 06/26/24 09/05/24 History pantoprazole 40 mg tablet,delayed 40 mg PO BID #60 tabs 06/27/24 09/05/24 Rx release (Protonix) Allergies Allergy/AdvReac Type Severity Reaction Status Date / Time oxycodone AdvReac Severe nausea and Verified 09/05/24 16:39 vomiting tramadol AdvReac Severe Vomiting Verified 09/05/24 16:39 cefdinir AdvReac Unknown Vomiting Verified 09/05/24 16:39 ciprofloxacin AdvReac Unknown Vomiting Verified 09/05/24 16:39 Exam Constitutional Vital Signs, click to edit/add: Last Vital Signs Temp 98.3 F 09/06/24 07:48 Pulse 75 09/06/24 07:55 Resp 18 09/06/24 08:00 BP 128/70 09/06/24 07:48 Pulse Ox 92 L 09/06/24 07:48 O2 Del Method Room Air 09/06/24 07:48 Documenting provider has reviewed patient's vital signs: yes Common normals: no apparent distress Respiratory Common normals: normal respiratory effort and no retractions Cardio Common normals: regular rate Rhythm: abnormal rhythm Extremity Common normals: abnormal to inspection (1 plus edema with left calf tenderness) Results Labs Labs: Short CBC 09/05/24 09/06/24 Range/Units 17:01 06:18 WBC 14.2 H 9.9 (4.0-11.0) 10^3/uL Hgb 9.5 L 9.4 L (12.0-16.0) g/dL Hct 29.3 L 28.8 L (36.0-48.0) % Plt Count 207 195 (150-450) 10^3/uL BMP 09/05/24 09/06/24 17:01 06:18 Sodium 135 L 139 Potassium 4.6 4.2 Chloride 97 L 102 Carbon Dioxide 27.7 27.1 BUN 32.0 H 34.0 H Creatinine 2.06 H 1.94 H Glucose 197 H 75 Calcium 9.0 8.8 Liver Function 09/05/24 09/06/24 Range/Units 17:01 06:18 Total Bilirubin 0.5 0.6 (0.2-1.0) mg/dL AST 11 L 16 (15-37) U/L ALT 9 L 8 L (14-59) U/L Alkaline Phosphatase 73 63 (46-116) U/L Albumin 2.8 L 2.4 L (3.4-5.0) g/dL Assessment and Plan Assessment and Plan (1) Cellulitis of arm, left: (2) Acute kidney injury superimposed on chronic kidney disease: Plan Admission findings: Respiratory distress, leukocytosis cytosis, lactic acidosis secondary to left arm cellulitis despite outpatient antibiotics with doxycycline and Bactrim. Cellulitis left upper extremity-ultrasound negative, looks much improved today, it is still at the line of demarcation but inside the line of demarcation it appears more of a bruise, she states the erythema is much improved and she can move her hand now which she could not do yesterday Leukocytosis secondary to above-improved today Acute kidney injury on top of chronic kidney disease stage III-slightly improved today will saline lock secondary to likely fluid overload if we do not Diabetes mellitus-insulin sliding scale Atrial fibrillation-continue with home medications Chronic combined congestive heart failure-continue with home medications L Hypothyroidism-continue with home medications GERD-continue with home medications Admission status: Patient with lactic acidosis and leukocytosis and cellulitis of her left upper extremity with failed outpatient treatment. Patient placed inpatient status is medically necessary treatment will likely span 2 midnights.
--- NOTE | 2024-09-06 08:47 | US_ITS ---
The [address] [address] Patient Name: OSCAR MCLEOD MRN: [id number] date: 1940 Sex: F Assigned Patient Location: [place] Current Patient Location: [place] Accession/Order Number: [id number] Exam Date: 09/06/2024 09:20 Report Date: 09/06/2024 10:00 At the request of: MATEUS PERRY Procedure: US venous doppler LE BI EXAMINATION: US venous doppler LE BI HISTORY: + [place] COMPARISON: No relevant comparison available. FINDINGS: REGION: bilateral lower extremities. THROMBI: None. COMPRESSIBILITY: Normal compressibility. FLOW: Normal waveform and antegrade flow between 5 and 20 cm/s. OTHER: None. US/US venous doppler LE BI IMPRESSION: 1. No deep vein thrombus within the right or left lower extremity. Electronically authenticated by: ALFONSO GEORGE Date: 09/06/2024 10:00
[2024-09-06] MEDS: INSULIN GLARGINE 300 UNIT/3 ML INSULN.PEN 16 UNIT SQ (09:51)
[2024-09-06] MEDS: ISOSORBIDE MONONITRATE 60 MG TAB.ER.24H PO (09:51)
[2024-09-06] MEDS: FEBUXOSTAT 40 MG TABLET PO (09:51)
[2024-09-06] MEDS: APIXABAN 5 MG TABLET 2.5 MG PO (09:51)
[2024-09-06] MEDS: OMEPRAZOLE 40 MG CAPSULE.DR PO (09:51)
[2024-09-06] MEDS: ASPIRIN 81 MG TABLET.DR PO (09:52)
[2024-09-06] MEDS: METOPROLOL SUCCINATE 100 MG TAB.ER.24H PO (09:52)
[2024-09-06] MEDS: NYSTATIN 15 GM POWDER 1 APPLIC TOPICAL (09:52)
[2024-09-06] MEDS: LIOTHYRONINE SODIUM 5 MCG TABLET 10 MCG PO (09:52)
[2024-09-06] MEDS: SUCRALFATE 1 GM TABLET PO ×2 (09:52→11:41)
--- NOTE | 2024-09-06 11:30 | SWNOTE1 ---
SW met with pt to discuss dc needs. Pt's grand-daughter and other family member in room as well. Pt does live at home with significant other. Pt uses a rollator at home. Pt does not have any home health coming in at this time. Pt has had in the past, but she does her daily exercises and does not feel she needs HH at this time. SW did let her know it was recommended, but pt is refusing and she will contact her PCP if she decides she wants it. Family does live right next door and her grand-daughter and other family members check on her daily. Pt does voice her left arm is feeling better and she did better walking today since she can use her arm to use walker. At this time pt denies any discharge needs. SW to follow as needed.
[2024-09-06] MEDS: FERROUS SULFATE 325 MG TABLET PO (11:40)
[2024-09-06] MEDS: FISH OIL 1,000 MG CAPSULE 1000 MG PO (11:44)
--- NOTE | 2024-09-10 13:32 | CM.DCFOLLOWU ---
Person spoke with: Harman How are you feeling? BP elevated and headache. Pt just took BP medication and she will recheck BP in about 45 min. Pt will call Dr. Blake if BP continues to be elevated How is your pain? Just headache Did you understand your discharge instructions? Yes Do you have any questions about your discharge instructions? No Were you given any prescriptions at discharge? Yes Were you able to get your prescriptions filled? Yes Do you understand how to take your medications as ordered? Yes Do you have any questions about your follow up appointment and do you plan to keep your follow up appointment? No questions scheduled for Sep 12 Is there anything else that you would like to discuss? No Questions/Comments/Concerns/Other:
== END 2024-09-06 16:37 | disposition home or self-care (01) | DRG 603 ==
LOC: ER 18:46 → MS 09-06 06:20
PROVIDERS: Registered Nurse; Admitting Provider Family Medicine; Emergency Provider Emergency Medicine; PCP Family Medicine; Visit Provider Family Medicine
DX: L03.114 Cellulitis of left upper limb (principal); I13.0 Hypertensive heart and chronic kidney disease with heart failure and stage 1 through stage 4 chronic kidney disease, or unspecified chronic kidney disease; N17.9 Acute kidney failure, unspecified; I50.42 Chronic combined systolic (congestive) and diastolic (congestive) heart failure; E87.20 Acidosis, unspecified; D72.829 Elevated white blood cell count, unspecified; E03.9 Hypothyroidism, unspecified; E11.22 Type 2 diabetes mellitus with diabetic chronic kidney disease; I25.10 Atherosclerotic heart disease of native coronary artery without angina pectoris; I48.91 Unspecified atrial fibrillation; J44.9 Chronic obstructive pulmonary disease, unspecified; K21.9 Gastro-esophageal reflux disease without esophagitis; N18.30 Chronic kidney disease, stage 3 unspecified; Z95.0 Presence of cardiac pacemaker; Z87.891 Personal history of nicotine dependence; Z90.11 Acquired absence of right breast and nipple; Z90.710 Acquired absence of both cervix and uterus; Z95.5 Presence of coronary angioplasty implant and graft; Z90.49 Acquired absence of other specified parts of digestive tract; Z79.82 Long term (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 aspirin; Z79.890 Hormone replacement therapy; Z79.4 Long term (current) use of insulin; Z79.01 Long term (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; Z79.84 Long term (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 oral hypoglycemic drugs; Z88.1 Allergy status to other antibiotic agents; Z88.5 Allergy status to narcotic agent
CPT/HCPCS: 36415; 71045; 73130; 80053; 82948; 83605; 83735; 84484; 85025; 85610; 87040; 93005; 93970; 93971; 94667; 94761; 96365; 96375; 97161; 97165; 97530; 99285; J1885; J2270; J2543

== ENCOUNTER 2024-09-23 07:58 | Outpatient (OUT) | payer MEDICARE, OTHER, SELFPAY ==
--- OUTSIDE RECORDS SUMMARY | 2024-09-23 08:06 | XMS_ITS | CCD ---
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 Role Phone Mateus Perry MD Primary Care Provider [phone] Mateus Perry Primary Care Physician Mateus Perry MD Primary Care Provider [phone] Mateus Perry MD Primary Care Provider [phone] Mateus Perry Primary Care Provider [phone] MD Christiano Gonzales Attending Provider Christiano Gonzales Unavailable [phone] Millie Storm Unavailable SONALI MCKINNEY Admitting [...] SONALI MCKINNEY Attending Unavailable TAWNYY ., DR INGACIO Primary Care Unavailable MISC, DR ROSE Admitting [...] Unavailable HOY ., DR IGNACIO Consulting Unavailable MESCALERO, DR JUDSON Plunkett Consulting Unavailable MISC, DR [...] HOY ., DR IGNACIO Primary Care Unavailable MESCALERO, DR JUDSON Plunkett Consulting Unavailable NILL ., [...] Unavailable HOY ., DR IGNACIO Consulting Unavailable MESCALERO, DR JUDSON Plunkett Consulting Unavailable HOY ., DR IGNACIO Primary Care Unavailable CARROLL, MIK Admitting Unavailable MIK HODGES Attending Unavailable MIK HODGES Consulting Unavailable HILL BAILON Consulting Unavailable NILL ., DR BARRIENTOS Admitting Unavailable NILL ., DR BARRIENTSO Attending Unavailable HOY ., DR IGNACIO Primary [...] e HOY, MATEUS M Primary Care Unavailable KOLEDA, LATONIA Referring Unavailable MATEUS PERRY Primary Care Unavailable MATEUS PERRY Primary Care Unavailable HAYDEE, LATONIA Referring Unavailable MD Mateus Perry Primary Care Provider [phone] FERNY Mathews Attending Provider [phone] MD Mateus Perry Primary Care Provider [phone] FERNY Mathews Attending Provider [phone] Mateus Perry Primary Care Unavailable Copkenya, Janell Admitting Unavailable Janell Mathews Attending Unavailable Mateus Perry Primary Care Unavailable Copkenya, Janell Admitting Unavailable Bisi, Janell Attending Unavailable Mateus Perry MD Primary Care Provider [phone] PEYMAN HENSLEY Attending Unavailable PEYMAN HENSLEY Attending Unavailable CHERYL FARIA Attending Unavailable MOUKARBEL, JOSE MARIA Attending Unavailable CONCHA, BRIAN Attending Unavailable MICHAEL, RENEE Attending Unavailable MICHAELRENEE Ames Referring Unavailable CONCHA, BRIAN Attending Unavailable CONCHA, BRIAN Referring Unavailable CONCHA, BRIAN Referring Unavailable CONCHA, BRIAN Referring Unavailable CONCHA, BRIAN Referring Unavailable CONCHA, BRIAN Referring Unavailable CONCHA, BRIAN Attending Unavailable CONCHA, BRIAN Referring Unavailable CONCHA, BRIAN Attending Unavailable CONCHA, BRIAN Admitting Unavailable CONCHA, BRIAN Admitting Unavailable CONCHA, BRIAN Attending Unavailable CONCHA, BRIAN Attending Unavailable Allergies Allergy Classification Reported Allergen(s) Allergy Type Date of Onset Reaction(s) Facility (18 sources) Acetaminophen / oxyCODONE; Translations: [OXYCODONE-ACETAM INOPHEN] Drug Allergy 3 Other (See Comments), Intolerance, GI Upset [facility] (20 sources) Ciprofloxacin; Translations: [ciprofloxacin] Drug Allergy 8 Hives, Urticaria (disorder), Other: See Comments [facility] (20 sources) oxyCODONE; Translations: [oxycodone] Drug Allergy 9 Rash, Itching (finding) [facility] (19 sources) cefdinir; Translations: [cefdinir] Drug Allergy 3 Vomiting (disorder), Other: See Comments, Vomiting, Other (See Comments) [facility] (11 sources) traMADol; Translations: [TRAMADOL] Drug Allergy 3 Mental Status Change, Other (See Comments) [facility] (1 source) Cefuroxime Drug Allergy 2 [facility] [employer] Work Phone: (5 sources) Acetaminophen; Translations: [acetaminophen] Drug Allergy 9 [facility] (2 sources) Acetaminophen / oxyCODONE Drug Allergy 3 [facility] Repository (1 source) Cefuroxime Drug Allergy 2 [facility] Repository (2 sources) Ciprofloxacin Drug Allergy [facility] Repository (1 source) cefdinir Drug Allergy 4 [facility] Repository (1 source) Ciprofloxacin Drug Allergy 4 [facility] Repository (1 source) oxyCODONE Drug Allergy 4 [facility] Repository (1 source) traMADol Drug Allergy 4 [facility] Repository Medications Current Medications Medication Drug [...] Polymyxin-class Antibacterial Start: End: bacitracin-polymyxin b (POLYSPORIN) 500-45471 UNIT/GM ointment Apply topically 2 times daily. [...] take 1 capsule by mouth twice daily Sullivan 3 1000 MG CAPS Take 1,000 mg by mouth 2 times daily 0 Active End: 05-12-2021 take 1 capsule by mouth once daily Sullivan-3 Fatty Acids (FISH OIL OMEGA-3) 1000 MG CAPS Take 1,000 mg by mouth daily 0 05/12/2021 Discontinued docusate sodium 50 mg / sennosides, half-way 8.6 mg oral tablet (2 sources) Start: [...] Status: Ordered take 2 tablets by mo [facility] twice daily furosemide (LASIX) 20 mg tablet [...] 2019 12:00am take 1 tablet by zechariah every twenty-four hours Glimepiride 4 MG 1 [...] Start: 09-02-2022 take 2 tablets by mo [facility] once daily Cytomel 5 mcg Tab 10 mcg = 2 tab(s), Oral, Daily, Refills(s) 0 Start Date: 09/02/22 Status: Ordered take 2 tablets by mo uth once daily liothyronine (Cytomel) 5 MCG tablet Take 2 tablets by mouth Daily Active take 1 tablet by zechariah th every twenty-four hours Liothyronine Sodium 5 MCG [...] sources) Polyene Antifungal Start: 06-28-2022 nystatin (MYCOSTATIN) 628845 UNIT/GM powder Apply 3 times daily. 60 g 10 06/28/2022 Active nystatin (MYCOST ATIN) 290821 UNIT/GM powder Apply topically 2 times daily as needed 0 Active Lfngr-3l-Cwb-Epa-Fish Oil (Sullivan-3 Fish Oil) 300-1,000 mg Capsule (4 sources) Start: 04-25-2019 Kjwtw-3w-Kjw-Epa-Fish Oil (Sullivan-3 Fish Oil) 300-1,000 mg Capsule Active 2 [...] Comment on above: Take 2 tablets by [facility] every 6 hours as needed for [...] 12-13-2021 lactated ringe rs infusion Start: 06-15-2021 ryan cannon rs infusion cetirizine hydrochloride 10 mg oral [...] by mouth 4 times daily 0 Active Qzqmg-8-QRH-EPA-Fish Oil 1,000 mg (120 mg-180 mg) cap (8 sources) take 1 capsule by mouth twice daily Druhz-7-NJQ-EPA-Fish Oil 1,000 mg (120 mg-180 mg) cap [...] sources) Long-term current use of anticoagulant; Translations: [custodial (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] Onset: 09-09-2022 Episodic Other aftercare (1 source) 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; Translations: [[employer] USE ANTICOAGULANTS] Onset: 11-03-2022 Episodic Other aftercare (1 source) 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 (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 oral hypoglycemic drugs; Translations: [[facility] USE ORAL HYPOGLYCEMIC DX] Onset: 11-03-2022 Episodic Other aftercare (1 source) Other assisted (current) drug therapy; Translations: [OTH 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 WOOD CURRENT DRUG THERAPY] Onset: 11-03-2022 Episodic Other bone disease and musculoskeletal deformities (4 sources) Osteopenia 09-02-2022 Episodic Other connective tissue disease (3 sources) Other specified soft tissue disorders Episodic Other connective tissue disease (1 source) Pain in right lower leg Episodic Other diseases of veins and lymphatics (4 sources) Vascular insufficiency; Translations: [Venous insufficiency (chronic) (peripheral)] 06-20-2024 Episodic Other female genital disorders (3 sources) Dysplasia of vagina; 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, unspecified] Episodic Other nutritional; endocrine; and metabolic disorders [...] HISTORY OF NICOTINE DEPEND] Onset: 11-03-2022 Episodic Skin and subcutaneous tissue infections (2 sources) Local infection of the skin and subcutaneous tissue, unspecified; Translations: [Local infection of the skin and subcutaneous tissue, unspecified] Onset: 09-12-2024 Episodic Spondylosis; intervertebral disc disorders; other back [...] Onset: 08-13-2022 Episodic Other aftercare (1 source) custodial (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 aspirin; Translations: [[employer] MA[employer] CURRENT USE OF ASPIRIN] Onset: 08-25-2022 Episodic Other circulatory disease (2 sources) Other hypotension; Translations: [Other hypotension] Onset: 06-12-2024 Episodic Other connective tissue disease (2 sources) Repeated falls; Translations: [Repeated falls] Onset: 06-12-2024 Episodic Other female genital disorders (8 sources) [...] FORMS OF DYSPNEA] Onset: 02-09-2022 Episodic Other nervous system disorders (2 sources) Other abnormalities of gait and mobility; Translations: [Other abnormalities of gait and mobility] Onset: 06-12-2024 Episodic Other screening for suspected conditions (not [...] Test Name Value Interpretation Reference Range Facility Follow-Upon 09-12-2024 Follow-Up [id number] Harman Mcleod 1940 F Date Provider Department Center 09/12/2024 BRIAN FLANNERY Probiodrug CARD [facility] Family History Problem Relation Age of Onset Stroke Mother Coronary artery disease Father Heart attack Father Family Status - Relation Status Age at Mother Father Level of Service:91803 HI OFFICE/OUTPATIENT ESTABLISHED LOW MDM 20 MIN Reason for Visit and Comments: Follow-up [487851] - Wound check Normal [facility] Office Visiton 09-02-2024 Follow-up visit [id number] Javier 1940 F Date Provider Department Center 09/02/2024 BRIAN FLANNERY HVHand Talk CARD [facility] Family History Problem Relation Age of Onset Stroke Mother Coronary artery disease Father Heart attack Father Family Status - Relation Status Age at Mother Father Level of Service:75250 HI OFFICE/OUTPATIENT ESTABLISHED SF MDM 10 MIN Normal [facility] Office Visiton 08-27-2024 Follow-up visit [id number] Harman Mcleod 1940 F Date Provider Department Center 08/27/2024 BRIAN FLANNERY [facility] Family History Problem Relation Age of Onset Stroke Mother Coronary artery disease Father Heart attack Father Family Status - Relation Status Age at Mother Father Level of Service:35902 HI OFFICE/OUTPATIENT ESTABLISHED LOW MDM 20 MIN Normal [facility] HPon 08-12-2024 [facility] Electrophysiology Consult Note [place] Cardiology - [facility] Reason for visit: Afib 08/12/24 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 She was just discharged from [facility] for GI bleed. Eliquis and aspirin have [...] (peripheral vascular disease) ([facility]) PSH: Past Surgical History: Procedure Laterality Date CARDIAC CATHETERIZATION 12/15/2011, 08/23/2010, 12/30/2004, CORONARY STENT PLACEMENT HYSTERECTOMY 03/11/2005 VASCULAR SURGERY SH: Social Determinants of Health Tobacco Use: Medium Risk (06/20/2024) [facility], [facility] Patient History Smoking Tobacco Use: Former [...] Depression: Not at risk (02/14/2023) Received from [facility], [facility] PHQ-2 PHQ-2 score: 0 Housing Stability: [...] mouth two times daily. fish oil concentrate (Sullivan-3) 120-180 mg capsule Take 1,000 mg by [...] tablet Take 10 mcg by mouth in (more content not included)... [facility] NURSNOTEon 08-12-2024 NURSNOTE RN educated [...] off of unit with all of belongings. [facility] 36on 07-18-2024 36 Patient's significan t toya (Sreekanth) called the office to confirm Harman has been taking 100mg of metoprolol once a day. She has 200mg tablets. I advised him - per Dr. Lamb- to make sure she's taking 100mg bid. She will take half tablet bid. Sreekanth verbalized understanding. [facility] Office Visiton 07-17-2024 Follow-up visit [id number] Harman Mcleod 1940 F Date Provider Department Center 07/17/2024 [id number] LAMB [facility] Family History Problem Relation Age of Onset Stroke Mother Coronary artery disease Father Heart attack Father Family Status - Relation Status Age at Mother Father Level of Service:21699 HI OFFICE/OUTPATIENT ESTABLISHED MOD MDM 30 MIN Reason for Visit and Comments: S/P PACEMAKER [Other] - HERE FOR A WOUND CHECK TODAY Atrial Fibrillation [80] - CHADSVASC score of 7 Coronary Artery Disease [187] Hypertension [371291] Edema [[id number]] - LEGS AND FEET ARE SWOLLEN TODAY, PT WANTS TO KNOW IF SHOULD GO BACK ON LASIX DAILY Normal [facility] Orders Onlyon 07-17-2024 Orders Only [id number] Harman Mcleod 1940 Date Provider Department Center 07/17/2024 895-JORGE OLIVAS CORI [facility] Family History Problem Relation Age of Onset Stroke Mother Coronary artery disease Father Heart attack Father Family Status - Relation Status Age at Mother Father Normal [facility] HPon 07-10-2024 [facility] Electrophysiology Consult Note [place] Cardiology - [facility] Reason for visit: Afib HPI: Harman [...] in A-fib. She was just discharged from [facility] for GI bleed. Eliquis and aspirin have [...] Arrhythmia Atrial fibrillation ([facility]) CAD (coronary artery disease) Cancer ([facility]) CHF (congestive heart failure) ([facility]) Chronic kidney disease COPD (chronic obstructive pulmonary disease) ([facility]) Diabetes mellitus ([facility]) GI bleed Heart murmur Hyperlipidemia Hypertension PVD (peripheral vascular disease) ([facility]) PSH: Past Surgical History: Procedure Laterality Date [...] mouth two times daily. fish oil concentrate (Sullivan-3) 120-180 mg capsule Take 1,000 mg by [...] tablet 3 spironolac (more content not included)... [facility] Zayra 07-10-2024 QUETA RN educated pt on [...] of unit with all of belongings. Normal [facility] Office Visiton 07-02-2024 Follow-up visit [id number] Lenin Mcleodvinod Coronel 1940 Provider Department Center 07/02/2024 Marie-BRIAN KERN [facility] Family History Problem Relation Age of Onset Stroke Mother Coronary artery disease Father Heart attack Father Family Status - Relation Status Age at Mother Father Level of Service:08793 HI OFFICE/OUTPATIENT NEW MODERATE MDM 45 MINUTES Normal [facility] Orders Onlyon 07-02-2024 Orders Only [id number] Lenin Mcleodvinod Coronel 1940 Provider Department Center 07/02/2024 Jennifer8-WENDY WILL COR[facility] Family History Problem Relation Age of Onset Stroke Mother Coronary artery disease Father Heart attack Father Family Status - Relation Status Age at Mother Father Normal [facility] Office Visiton 06-12-2024 Follow-up visit [id number] McleodHarman 1940 Provider Department Center 06/12/2024 David-JOSE MARIA KEYES COR[facility] Family History Problem Relation Age of Onset Stroke Mother Coronary artery disease Father Heart attack Father Family Status - Relation Status Age at Mother Father Level of Service:53366 HI OFFICE/OUTPATIENT ESTABLISHED HIGH MDM 40 MIN Normal [facility] 36on 06-10-2024 36 Pt informed hoys office updated Normal [facility] 37on 05-27-2024 37 Increase Zocor/simvastatin to 40 mg daily- from 20 mg for better cholesterol control Have blood drawn in 2-3 months for liver function and lipid levels- you must be fasting to have drawn Normal [facility] Office Visiton 05-27-2024 Follow-up visit [id number] Javiervinod Coronel 1940 Date Provider Department Center 05/27/2024 120-CHERYL FARIA [facility] Family History Problem Relation Age of Onset Stroke Mother Coronary artery disease Father Heart attack Father Family Status - Relation Status Age at Mother Father Level of Service:24633 HI OFFICE/OUTPATIENT ESTABLISHED LOW MDM 20 MIN Normal [facility] US ankle/arm indiceson 07-30 -2024 US ankle/arm indices [facility] Main [address] [address] Ultrasound Report Signed Patient: Harman Mcleod MR#: [id number] : 1940 Acct:[id number] Age/Sex: 83 / F ADM Date: 04/09/24 [...] Christiano Gonzales MD04/09/2024 2:02 PM Dictation Location: [place] [address] Tech: Kaleigh Ortega Transcribed By: FRANCIA 04/09/24 1402 Dictated By: Christiano Gonzales MD 04/09/24 1401 Signed By: 04/09/24 1402 Normal [facility] US venous duplex LE BIon US venous duplex LE BI [facility] Main [address] [address] Ultrasound Report Signed Patient: Harman Mcleod MR#: [id number] : 1940 Acct:[id number] Age/Sex: 83 / F ADM Date: 04/09/24 [...] Christiano Gonzales MD04/09/2024 2:01 PM Dictation Location: [place] [address] Tech: Francesca Estrada Transcribed By: FRANCIA 04/09/24 1401 Dictated By: Christiano Gonzales MD 04/09/24 1359 Signed By: 04/09/24 1401 Normal [facility] Consultation Noteon 06-21-20 Consultation Note [id number] 0TIFF Normal [facility] CBC W Auto Differential pane l (Bld)on 06-20-2023 Basophils (Bld) [#/Vol] 0.03 10*3/uL Normal <0.11 [facility] Comment on above: Order Comment: Speci men Type: BLOOD SPECIMENOrdering Facility: [facility] Address: [address] [place] [address] Performed By: #### 5 7021-8 ####[facility] LABCLIA [id number] [place] [address] Basophils/100 WBC (Bld) 0.3 % Normal [facility] Comment on above: Order Comment: Speci men Type: BLOOD SPECIMENOrdering Facility: [facility] Address: [address] [place] [address] Performed By: #### 5 7021-8 ####[facility] LABCLIA [id number] [place] [address] Differential cell count method Nom (Bld) Auto Normal [facility] Comment on above: Order Comment: Speci men Type: BLOOD SPECIMENOrdering Facility: [facility] Address: [address] [place] [address] Performed By: #### 5 7021-8 ####[facility] LABCLIA [id number] [place] [address] Eosinophils (Bld) [#/Vol] 10*3/uL Normal <0.46 [facility] Comment on above: Order Comment: Speci men Type: BLOOD SPECIMENOrdering Facility: [facility] Address: [address] [place] [address] Performed By: #### 5 7021-8 ####[facility] LABCLIA [id number] [place] [address] Eosinophils/100 WBC (Bld) 0.2 % Normal [facility] Comment on above: Order Comment: Speci men Type: BLOOD SPECIMENOrdering Facility: [facility] Address: [address] [place] [address] Performed By: #### 5 7021-8 ####[facility] LABCLIA [id number] [place] [address] Erythrocyte distribution width (RBC) [Ratio] 14.4 % Normal 11.5-15.0 [facility] Comment on above: Order Comment: Speci men Type: BLOOD SPECIMENOrdering Facility: [facility] Address: [address] [place] [address] Performed By: #### 5 7021-8 ####[facility] LABIA [id number] [place] [address] Hematocrit (Bld) [Volume fraction] 34.9 % Low 36.0-46.0 [facility] Comment on above: Order Comment: Speci men Type: BLOOD SPECIMENOrdering Facility: [facility] Address: [address] [place] [address] Performed By: #### 5 7021-8 ####[facility] LABCLIA [id number] [place] [address] Hemoglobin (Bld) [Mass/Vol] 10.9 g/dL Low 11.5-15.5 [facility] Comment on above: Order Comment: Speci men Type: BLOOD SPECIMENOrdering Facility: [facility] Address: [address] [place] [address] Performed By: #### 5 7021-8 ####[facility] LABCLIA [id number] [place] [address] Immature granulocytes (Bld) [#/Vol] 0.11 10*3/uL High <0.10 [facility] Comment on above: Order Comment: Speci men Type: BLOOD SPECIMENOrdering Facility: [facility] Address: [address] [place] [address] Performed By: #### 5 7021-8 ####[facility] LABCLIA [id number] [place] [address] Immature granulocytes/100 WBC (Bld) 1.1 % Normal [facility] Comment on above: Order Comment: Speci men Type: BLOOD SPECIMENOrdering Facility: [facility] Address: [address] [place] [address] Performed By: #### 5 7021-8 ####[facility] LABCLIA [id number] [place] [address] Lymphocytes (Bld) [#/Vol] 1.97 10*3/uL Normal 1.00-4.00 [facility] Comment on above: Order Comment: Speci men Type: BLOOD SPECIMENOrdering Facility: [facility] Address: [address] [place] [address] Performed By: #### 5 7021-8 ####[facility] LABCLIA [id number] [place] [address] Lymphocytes/100 WBC (Bld) 19.3 % Normal [facility] Comment on above: Order Comment: Speci men Type: BLOOD SPECIMENOrdering Facility: [facility] Address: [address] [place] [address] Performed By: #### 5 7021-8 ####[facility] LABCLIA [id number] [place] [address] MCH (RBC) [Entitic mass] 29.9 pg Normal 26.0-34.0 [facility] Comment on above: Order Comment: Speci men Type: BLOOD SPECIMENOrdering Facility: [facility] Address: [address] [place] [address] Performed By: #### 5 7021-8 ####[facility] LABCLIA [id number] [place] [address] MCHC (RBC) [Mass/Vol] 31.2 g/dL Normal 30.5-36.0 [facility] Comment on above: Order Comment: Speci men Type: BLOOD SPECIMENOrdering Facility: [facility] Address: [address] [place] [address] Performed By: #### 5 7021-8 ####[facility] LABCLIA [id number] [place] [address] MCV (RBC) [Entitic vol] 95.6 fL Normal 80.0-100.0 [facility] Comment on above: Order Comment: Speci men Type: BLOOD SPECIMENOrdering Facility: [facility] Address: [address] [place] [address] Performed By: #### 5 7021-8 ####[facility] LABCLIA [id number] [place] [address] Monocytes (Bld) [#/Vol] 0.49 10*3/uL Normal <0.87 [facility] Comment on above: Order Comment: Speci men Type: BLOOD SPECIMENOrdering Facility: [facility] Address: [address] [place] [address] Performed By: #### 5 7021-8 ####[facility] LABCLIA [id number] [place] [address] Monocytes/100 WBC (Bld) 4.8 % Normal [facility] Comment on above: Order Comment: Speci men Type: BLOOD SPECIMENOrdering Facility: [facility] Address: [address] [place] [address] Performed By: #### 5 7021-8 ####[facility] LABCLIA [id number] [place] [address] Neutrophils (Bld) [#/Vol] 7.59 10*3/uL High 1.45-7.50 [facility] Comment on above: Order Comment: Speci men Type: BLOOD SPECIMENOrdering Facility: [facility] Address: [address] [place] [address] Performed By: #### 5 7021-8 ####[facility] LABCLIA [id number] [place] [address] Neutrophils/100 WBC (Bld) 74.3 % Normal [facility] Comment on above: Order Comment: Speci men Type: BLOOD SPECIMENOrdering Facility: [facility] Address: [address] [place] [address] Performed By: #### 5 7021-8 ####[facility] LABCLIA [id number] [place] [address] Nucleated RBC (Bld) [#/Vol] 10*3/uL Normal <0.01 [facility] Comment on above: Order Comment: Speci men Type: BLOOD SPECIMENOrdering Facility: [facility] Address: [address] [place] [address] Performed By: #### 5 7021-8 ####[facility] LABIA [id number] [place] [address] Nucleated RBC/100 WBC (Bld) [Ratio] 0.0 /100 WBC Normal [facility] Comment on above: Order Comment: Speci men Type: BLOOD SPECIMENOrdering Facility: [facility] Address: [address] [place], [place] [address] Performed By: #### 5 7021-8 ####[facility] LABCLIA [id number] [place] [address] Platelet mean volume (Bld) [Entitic vol] 9.3 fL Normal 9.0-12.7 [facility] Comment on above: Order Comment: Speci men Type: BLOOD SPECIMENOrdering Facility: [facility] Address: [address] [place] [address] Performed By: #### 5 7021-8 ####[facility] LABCLIA [id number] [place] [address] Platelets (Bld) [#/Vol] 275 10*3/uL Normal 150-400 [facility] Comment on above: Order Comment: Speci men Type: BLOOD SPECIMENOrdering Facility: [facility] Address: [address] [place] [address] Performed By: #### 5 7021-8 ####[facility] LABCLIA [id number] [place] [address] RBC (Bld) [#/Vol] 3.65 10*6/uL Low 3.90-5.20 [facility] Comment on above: Order Comment: Speci men Type: BLOOD SPECIMENOrdering Facility: [facility] Address: [address] [place] [address] Performed By: #### 5 7021-8 ####[facility] LABCLIA [id number] [place] [address] WBC (Bld) [#/Vol] 10.21 10*3/uL Normal 3.70-11.00 [facility] Comment on above: Order Comment: Speci men Type: BLOOD SPECIMENOrdering Facility: [facility] Address: [address] [place] [address] Performed By: #### 5 7021-8 ####[facility] LABCLIA [id number] [place] [address] CNOVSPon 06-20-2023 CNOVSP Visit (SP) Office (HEMAS[place]) HARMAN MCLEOD ([id number]) 1940 F Date Time Provider Department 06/20/23 2:30 PM WINNIE GUZMÁN During your visit today, we recorded the following information about you: Temperature Pulse Respiration Blood pressure 97.4 degrees 72/minute 16/minute 138/55 Weight Height 84.6 kg 1.549 m Winnie Guzmán PA-C 06/20/2023 3:58 PM Signed PATIENT NAME: Harman Mcleod CLINIC NO.: [id number] ATTENDING PHYSICIAN: Wallace Stone MD DATE OF [...] 06/20/2023 1.77 (more content not included)... Normal [facility] Comprehensive metabolic 2000 panelon 06-20-2023 Albumin [Mass/Vol] 4.0 g/dL Normal 3.9-4.9 [facility] Comment on above: Order Comment: Speci men Type: BLOOD SPECIMENOrdering Facility: [facility] Address: [address] [place] [address] Performed By: #### 2 4323-8 ####[facility] LABCLIA [id number] [place] [address] ALP [Catalytic activity/Vol] 72 U/L Normal 34-123 [facility] Comment on above: Order Comment: Speci men Type: BLOOD SPECIMENOrdering Facility: [facility] Address: [address] [place] [address] Performed By: #### 2 4323-8 ####[facility] LABCLIA [id number] [place] [address] ALT [Catalytic activity/Vol] 17 U/L Normal 7-38 [facility] Comment on above: Order Comment: Speci men Type: BLOOD SPECIMENOrdering Facility: [facility] Address: [address] [place] [address] Performed By: #### 2 4323-8 ####[facility] LABCLIA [id number] [place] [address] Anion gap [Moles/Vol] 9 mmol/L Normal 9-18 [facility] Comment on above: Order Comment: Speci men Type: BLOOD SPECIMENOrdering Facility: [facility] Address: [address] [place] [address] Performed By: #### 2 4323-8 ####[facility] LABCLIA [id number] [place] [address] AST [Catalytic activity/Vol] 11 U/L Low 13-35 [facility] Comment on above: Order Comment: Speci men Type: BLOOD SPECIMENOrdering Facility: [facility] Address: [address] [place] [address] Performed By: #### 2 4323-8 ####[facility] LABCLIA [id number] [place] [address] Bilirubin [Mass/Vol] 0.2 mg/dL Normal 0.2-1.3 [facility] Comment on above: Order Comment: Speci men Type: BLOOD SPECIMENOrdering Facility: [facility] Address: [address] [place] [address] Performed By: #### 2 4323-8 ####[facility] LABCLIA [id number] [place] [address] Calcium [Mass/Vol] 10.1 mg/dL Normal 8.5-10.2 [facility] Comment on above: Order Comment: Speci men Type: BLOOD SPECIMENOrdering Facility: [facility] Address: [address] [place] [address] Performed By: #### 2 4323-8 ####[facility] LABCLIA [id number] [place] [address] Chloride [Moles/Vol] 103 mmol/L Normal 97-105 [facility] Comment on above: Order Comment: Speci men Type: BLOOD SPECIMENOrdering Facility: [facility] Address: [address] [place] [address] Performed By: #### 2 4323-8 ####[facility] LABCLIA [id number] [place] [address] CO2 [Moles/Vol] 30 mmol/L Normal 22-30 [facility] Comment on above: Order Comment: Speci men Type: BLOOD SPECIMENOrdering Facility: [facility] Address: [address] [place] [address] Performed By: #### 2 4323-8 ####[facility] LABCLIA [id number] [place] [address] Creatinine [Mass/Vol] 1.77 mg/dL High 0.58-0.96 [facility] Comment on above: Order Comment: Speci men Type: BLOOD SPECIMENOrdering Facility: [facility] Address: [address] [place] [address] Performed By: #### 2 4323-8 ####[facility] LABCLIA [id number] [place] [address] Creatinine and Glomerular filtration rate.predicted panel (S/P/Bld) 29 mL/min/1.73m??? Low >=60 [facility] Comment on above: Order Comment: Speci men Type: BLOOD SPECIMENOrdering Facility: [facility] Address: [address] [place] [address] Result Comment: Ramila mated Glomerular Filtration Rate [...] actual GFR. Performed By: #### 2 4323-8 ####[facility] LABCLIA [id number] [place] [address] Glucose [Mass/Vol] 273 mg/dL High 74-99 [facility] Comment on above: Order Comment: Speci men Type: BLOOD SPECIMENOrdering Facility: [facility] Address: [address] [place] [address] Result Comment: The [place] Diabetes Association (ADA) provides guidance for cutoff [...] Standards of Medical Care in Diabetes 2016, [place] [employer]. Diabetes Care. 2016.39(Suppl 1). Performed By: #### 2 4323-8 ####[facility] LABCLIA [id number] [place] [address] Potassium [Moles/Vol] 5.1 mmol/L Normal 3.7-5.1 [facility] Comment on above: Order Comment: Speci men Type: BLOOD SPECIMENOrdering Facility: [facility] Address: [address] [place] [address] Performed By: #### 2 4323-8 ####[facility] LABCLIA [id number] [place] [address] Protein [Mass/Vol] 6.4 g/dL Normal 6.3-8.0 [facility] Comment on above: Order Comment: Speci men Type: BLOOD SPECIMENOrdering Facility: [facility] Address: [address] [place] [address] Performed By: #### 2 4323-8 ####[facility] LABCLIA [id number] [place] [address] Sodium [Moles/Vol] 142 mmol/L Normal 136-144 [facility] Comment on above: Order Comment: Speci men Type: BLOOD SPECIMENOrdering Facility: [facility] Address: [address] [place] [address] Performed By: #### 2 4323-8 ####[facility] LABCLIA [id number] [place] [address] Urea nitrogen [Mass/Vol] 40 mg/dL High 7-21 [facility] Comment on above: Order Comment: Speci men Type: BLOOD SPECIMENOrdering Facility: [facility] Address: [address] [place] [address] Performed By: #### 2 4323-8 ####[facility] LABCLIA [id number] [place] [address] Vaginitis DNA Probeon 2022 Manjula Negative Normal NEG [facility] Comment on above: Result Comment: for Manjula sp. Method of testing is a DNA probe intended for detection and identification of Manjula species, Gardnerella vaginalis, and Trichomonas vaginalis nucleic acid in vaginal fluid specimens from patients with symptoms of vaginitis/vaginosis. Performed By: #### V AGP #### [address] [address] Mental Health Worker: Fidel Hylton MD Gardnerella Negative Normal NEG [facility] Comment on above: Result Comment: for Gardnerella vaginalis Performed By: #### V AGP #### [address] [id number] Mental Health Worker: Fidel Hylton MD Trichomonas Negative Normal NEG [facility] Comment on above: Result Comment: for Trichomonas Vaginalis Performed By: #### V AGP #### [address] [address] Mental Health Worker: Fidel Hylton MD Source .VAGINAL SWAB Normal [facility] Comment on above: Performed By: #### V AGP #### [address] [address] Mental Health Worker: Fidel Hylton MD OPERATIVE REPORTon 3 OPERATIVE REPORT [address] [address] OPERATIVE REPORT PATIENT NAME: HARMAN MCLEOD : 1940 MED REC NO: [id number] ROOM: ACCOUNT NO: [id number] ADMIT DATE: 03/06/2023 PROVIDER: Emma Garza MD DATE OF PROCEDURE: 03/06/2023 PREOPERATIVE DIAGNOSIS: Recurrent vaginal dysplasia. POSTOPERATIVE DIAGNOSIS: Recurrent vaginal dysplasia. OPERATION PERFORMED: Examination under anesthesia, carbon dioxide laser vaporization of vaginal dysplasia. COMPLICATIONS: None. BLOOD LOSS: Minimal. SURGEON: Emma Garza MD ORTHOPEDICALLY IMPAIRED TEACHER: Mauri (resident). DISPOSITION: The patient to recovery room stable. SPECIMENS: No specimen sent to Pathology. OPERATIVE FINDINGS: The patient had a small 1-2 cm area of fzwuworz-ya-dopihd dysplasia along the anterior vagina from 12 [...] entire procedure. EMMA GARZA MD CL/[id number]_[email or web address] Doc#: [id number] CC: Normal [facility] Consultation Noteon 02-20-20 23 Consultation Note [id number]#[id number] 0CD:127 Normal [facility] CBC W Auto Differential pane l (Bld)on 02-14-2023 Basophils (Bld) [#/Vol] 0.04 10*3/uL Normal <0.11 [facility] Comment on above: Order Comment: Speci men Type: BLOOD SPECIMENOrdering Facility: [facility] Address: [address] [address] Performed By: #### 5 7021-8 ####[facility] LABCLIA [id number] [place] [address] Basophils/100 WBC (Bld) 0.4 % Normal [facility] Comment on above: Order Comment: Speci men Type: BLOOD SPECIMENOrdering Facility: [facility] Address: [address] [address] Performed By: #### 5 7021-8 ####[facility] LABCLIA [id number] [place] [address] Differential cell count method Nom (Bld) Auto Normal [facility] Comment on above: Order Comment: Speci men Type: BLOOD SPECIMENOrdering Facility: [facility] Address: [address] [address] Performed By: #### 5 7021-8 ####[facility] LABCLIA [id number] [place] [address] Eosinophils (Bld) [#/Vol] 0.20 10*3/uL Normal <0.46 [facility] Comment on above: Order Comment: Speci men Type: BLOOD SPECIMENOrdering Facility: [facility] Address: [address] [address] Performed By: #### 5 7021-8 ####[facility] LABCLIA [id number] [place] [address] Eosinophils/100 WBC (Bld) 1.9 % Normal [facility] Comment on above: Order Comment: Speci men Type: BLOOD SPECIMENOrdering Facility: [facility] Address: [address] [address] Performed By: #### 5 7021-8 ####[facility] LABCLIA [id number] [place] [address] Erythrocyte distribution width (RBC) [Ratio] 14.1 % Normal 11.5-15.0 [facility] Comment on above: Order Comment: Speci men Type: BLOOD SPECIMENOrdering Facility: [facility] Address: [address] [place] [address] Performed By: #### 5 7021-8 ####[facility] LABCLIA [id number] [place] [address] Hematocrit (Bld) [Volume fraction] 38.4 % Normal 36.0-46.0 [facility] Comment on above: Order Comment: Speci men Type: BLOOD SPECIMENOrdering Facility: [facility] Address: [address] [place] [address] Performed By: #### 5 7021-8 ####[facility] LABCLIA [id number] [place] [address] Hemoglobin (Bld) [Mass/Vol] 12.2 g/dL Normal 11.5-15.5 [facility] Comment on above: Order Comment: Speci men Type: BLOOD SPECIMENOrdering Facility: [facility] Address: [address] [place] [address] Performed By: #### 5 7021-8 ####[facility] LABCLIA [id number] [place] [address] Immature granulocytes (Bld) [#/Vol] 0.06 10*3/uL Normal <0.10 [facility] Comment on above: Order Comment: Speci men Type: BLOOD SPECIMENOrdering Facility: [facility] Address: [address] [place] [address] Performed By: #### 5 7021-8 ####[facility] LABCLIA [id number] [place] [address] Immature granulocytes/100 WBC (Bld) 0.6 % Normal [facility] Comment on above: Order Comment: Speci men Type: BLOOD SPECIMENOrdering Facility: [facility] Address: [address] [place], [place] [address] Performed By: #### 5 7021-8 ####[facility] LABCLIA [id number] [place] [address] Lymphocytes (Bld) [#/Vol] 2.56 10*3/uL Normal 1.00-4.00 [facility] Comment on above: Order Comment: Speci men Type: BLOOD SPECIMENOrdering Facility: [facility] Address: [address] [place] [address] Performed By: #### 5 7021-8 ####[facility] LABCLIA [id number] [place] [address] Lymphocytes/100 WBC (Bld) 24.6 % Normal [facility] Comment on above: Order Comment: Speci men Type: BLOOD SPECIMENOrdering Facility: [facility] Address: [address] [place] [address] Performed By: #### 5 7021-8 ####[facility] LABCLIA [id number] [place] [address] MCH (RBC) [Entitic mass] 30.0 pg Normal 26.0-34.0 [facility] Comment on above: Order Comment: Speci men Type: BLOOD SPECIMENOrdering Facility: [facility] Address: [address] [place] [address] Performed By: #### 5 7021-8 ####[facility] LABCLIA [id number] [place] [address] MCHC (RBC) [Mass/Vol] 31.8 g/dL Normal 30.5-36.0 [facility] Comment on above: Order Comment: Speci men Type: BLOOD SPECIMENOrdering Facility: [facility] Address: [address] [place] [address] Performed By: #### 5 7021-8 ####[facility] LABIA [id number] [place] [address] MCV (RBC) [Entitic vol] 94.3 fL Normal 80.0-100.0 [facility] Comment on above: Order Comment: Speci men Type: BLOOD SPECIMENOrdering Facility: [facility] Address: [address] [address] Performed By: #### 5 7021-8 ####[facility] LABCLIA [id number] [place] [address] Monocytes (Bld) [#/Vol] 0.86 10*3/uL Normal <0.87 [facility] Comment on above: Order Comment: Speci men Type: BLOOD SPECIMENOrdering Facility: [facility] Address: [address] [address] Performed By: #### 5 7021-8 ####[facility] LABCLIA [id number] [place] [address] Monocytes/100 WBC (Bld) 8.3 % Normal [facility] Comment on above: Order Comment: Speci men Type: BLOOD SPECIMENOrdering Facility: [facility] Address: [address] Performed By: #### 5 7021-8 ####[facility] LABCLIA [id number] [place] [address] Neutrophils (Bld) [#/Vol] 6.69 10*3/uL Normal 1.45-7.50 [facility] Comment on above: Order Comment: Speci men Type: BLOOD SPECIMENOrdering Facility: [facility] Address: [address] [address] Performed By: #### 5 7021-8 ####[facility] LABCLIA [id number] [place] [address] Neutrophils/100 WBC (Bld) 64.2 % Normal [facility] Comment on above: Order Comment: Speci men Type: BLOOD SPECIMENOrdering Facility: [facility] Address: [address] Performed By: #### 5 7021-8 ####[facility] LABCLIA [id number] [place] [address] Nucleated RBC (Bld) [#/Vol] 10*3/uL Normal <0.01 [facility] Comment on above: Order Comment: Speci men Type: BLOOD SPECIMENOrdering Facility: [facility] Address: [address] [place] [address] Performed By: #### 5 7021-8 ####[facility] LABCLIA [id number] [place] [address] Nucleated RBC/100 WBC (Bld) [Ratio] 0.0 /100 WBC Normal [facility] Comment on above: Order Comment: Speci men Type: BLOOD SPECIMENOrdering Facility: [facility] Address: [address] [place] [address] Performed By: #### 5 7021-8 ####[facility] LABCLIA [id number] [place] [address] Platelet mean volume (Bld) [Entitic vol] 9.6 fL Normal 9.0-12.7 [facility] Comment on above: Order Comment: Speci men Type: BLOOD SPECIMENOrdering Facility: [facility] Address: [address] [place] [address] Performed By: #### 5 7021-8 ####[facility] LABCLIA [id number] [place] [address] Platelets (Bld) [#/Vol] 271 10*3/uL Normal 150-400 [facility] Comment on above: Order Comment: Speci men Type: BLOOD SPECIMENOrdering Facility: [facility] Address: [address] [place] [address] Performed By: #### 5 7021-8 ####[facility] LABCLIA [id number] [place] [address] RBC (Bld) [#/Vol] 4.07 10*6/uL Normal 3.90-5.20 [facility] Comment on above: Order Comment: Speci men Type: BLOOD SPECIMENOrdering Facility: [facility] Address: [place] [address] Performed By: #### 5 7021-8 ####[facility] LABCLIA [id number] [place] [address] WBC (Bld) [#/Vol] 10.41 10*3/uL Normal 3.70-11.00 [facility] Comment on above: Order Comment: Speci men Type: BLOOD SPECIMENOrdering Facility: [facility] Address: [place] [address] Performed By: #### 5 7021-8 ####[facility] LABCLIA [id number] [place] [address] CNOVSPon 02-14-2023 CNOVSP Visit (SP) Office (HEMASA) HARMAN MCLEOD ([id number]) 1940 F Date Time Provider Department 02/14/23 10:30 AM WALLACE STONE During your visit today, we recorded the following information about you: Temperature Pulse Respiration Blood pressure 97.4 degrees 102/minute 16/minute 151/90 Weight Height 84.5 kg 1.549 m Wallace Stone MD 02/14/2023 10:49 AM Signed PATIENT NAME: [place] [facility]od CLINIC NO.: [id number] ATTENDING PHYSICIAN: Wallace Stone MD DATE OF [...] : Deferre (more content not included)... Normal [facility] HARMAN MCLEOD ([id number]) 1940 F Date Time Provider Department 02/14/23 WALLACE STONE During your visit today, we recorded the following information about you: Angelica Camara Bhakta Sec 02/14/2023 11:00 AM Signed Please ref to [facility] for Consult dx eczema They will call the patient to schedule after review of records. Janeth, Please fax records Dudley, Please check on this appt. Kira Berna Ko [facility] 02/14/2023 1:14 PM Signed Records faxed to [facility]. Adriana Pereira Pss 02/22/2023 8:35 AM Signed Called [facility] office spoke with Coco. She states they have received this referral and they have called and left patient 2 messages to call their office back to schedule. As of now they are waiting for patient to call their office back. Adriana Pereira [facility] Adriana Pereira [facility] 03/01/2023 3:14 PM Signed Called [facility] spoke with Coco. Patient is scheduled to see Dr Patel on Saturday 03/03. Adriana Pereira [facility] Allergies As of Date: 02/14/2023 Noted Allergy [...] daily at bedtime. Cut in half - Lsowq-5-NSK-EPA-Fish Oil 1,000 mg (120 mg-180 mg) cap Take 2 g by mouth twice daily. - isosorbide mononitrate ER (IMDUR) 60 mg 24 hr tablet Take 60 mg by mouth twice daily. 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 Stage 3a chronic kidney disease ([facility]) [N18.31] 02/14/2023 Encounter Status:Closed by ANGELICA MILLAN on 02/28/23 Normal [facility] Comprehensive metabolic 2000 panelon 02-14-2023 Albumin [Mass/Vol] 4.1 g/dL Normal 3.9-4.9 [facility] Comment on above: Order Comment: Speci men Type: BLOOD SPECIMENOrdering Facility: [facility] Address: [address] [place] [address] Performed By: #### 2 4323-8 ####[facility] LABCLIA [id number] [place] [address] ALP [Catalytic activity/Vol] 106 U/L Normal 34-123 [facility] Comment on above: Order Comment: Speci men Type: BLOOD SPECIMENOrdering Facility: [facility] Address: [address] [address] Performed By: #### 2 4323-8 ####[facility] LABCLIA [id number] [place] [address] ALT [Catalytic activity/Vol] 14 U/L Normal 7-38 [facility] Comment on above: Order Comment: Speci men Type: BLOOD SPECIMENOrdering Facility: [facility] Address: [address] [address] Performed By: #### 2 4323-8 ####[facility] LABCLIA [id number] [place] [address] Anion gap [Moles/Vol] 11 mmol/L Normal 9-18 [facility] Comment on above: Order Comment: Speci men Type: BLOOD SPECIMENOrdering Facility: [facility] Address: [address] [address] Performed By: #### 2 4323-8 ####[facility] LABCLIA [id number] [place] [address] AST [Catalytic activity/Vol] 11 U/L Low 13-35 [facility] Comment on above: Order Comment: Speci men Type: BLOOD SPECIMENOrdering Facility: [facility] Address: [address] [address] Performed By: #### 2 4323-8 ####[facility] LABCLIA [id number] [place] [address] Bilirubin [Mass/Vol] 0.3 mg/dL Normal 0.2-1.3 [facility] Comment on above: Order Comment: Speci men Type: BLOOD SPECIMENOrdering Facility: [facility] Address: [address] [place] [address] Performed By: #### 2 4323-8 ####[facility] LABCLIA [id number] [place] [address] Calcium [Mass/Vol] 10.2 mg/dL Normal 8.5-10.2 [facility] Comment on above: Order Comment: Speci men Type: BLOOD SPECIMENOrdering Facility: [facility] Address: [address] [address] Performed By: #### 2 4323-8 ####[facility] LABCLIA [id number] [place] [address] Chloride [Moles/Vol] 98 mmol/L Normal 97-105 [facility] Comment on above: Order Comment: Speci men Type: BLOOD SPECIMENOrdering Facility: [facility] Address: [address] [place] [address] Performed By: #### 2 4323-8 ####[facility] LABCLIA [id number] [place] [address] CO2 [Moles/Vol] 31 mmol/L High 22-30 [facility] Comment on above: Order Comment: Speci men Type: BLOOD SPECIMENOrdering Facility: [facility] Address: [address] [place] [address] Performed By: #### 2 4323-8 ####[facility] LABCLIA [id number] [place] [address] Creatinine [Mass/Vol] 1.25 mg/dL High 0.58-0.96 [facility] Comment on above: Order Comment: Speci men Type: BLOOD SPECIMENOrdering Facility: [facility] Address: [address] [place] [address] Performed By: #### 2 4323-8 ####[facility] LABCLIA [id number] [place] [address] ESTIMATED GLOMERULAR FILTRATION RATE 44 mL/min/1.73m??? Low >=60 [facility] Comment on above: Order Comment: Speci men Type: BLOOD SPECIMENOrdering Facility: [facility] Address: [address] [place] [address] Result Comment: Ramila mated Glomerular Filtration Rate [...] actual GFR. Performed By: #### 2 4323-8 ####[facility] LABCLIA [id number] [place] [address] Glucose [Mass/Vol] 285 mg/dL High 74-99 [facility] Comment on above: Order Comment: Speci men Type: BLOOD SPECIMENOrdering Facility: [facility] Address: [address] [place] [address] Result Comment: The [place] [employer] (ADA) provides guidance for cutoff [...] Standards of Medical Care in Diabetes 2016, [place] [employer]. Diabetes Care. 2016.39(Suppl 1). Performed By: #### 2 4323-8 ####[facility] LABCLIA [id number] [place] [address] Potassium [Moles/Vol] 3.7 mmol/L Normal 3.7-5.1 [facility] Comment on above: Order Comment: Speci men Type: BLOOD SPECIMENOrdering Facility: [facility] Address: [address] [place] [address] Performed By: #### 2 4323-8 ####[facility] [facility] LABCLIA [id number] [place] [address] Protein [Mass/Vol] 7.3 g/dL Normal 6.3-8.0 [facility] Comment on above: Order Comment: Speci men Type: BLOOD SPECIMENOrdering Facility: [facility] Address: [address] [place] [address] Performed By: #### 2 4323-8 ####[facility] LABCLIA [id number] [place] [address] Sodium [Moles/Vol] 140 mmol/L Normal 136-144 [facility] Comment on above: Order Comment: Speci men Type: BLOOD SPECIMENOrdering Facility: [facility] Address: [address] [id number] Performed By: #### 2 4323-8 ####[facility] LABCLIA [id number] [place] [id number] Urea nitrogen [Mass/Vol] 33 mg/dL High 7-21 [facility] Comment on above: Order Comment: Speci men Type: BLOOD SPECIMENOrdering Facility: [facility] Address: [address] [address] Performed By: #### 2 4323-8 ####[facility] LABCLIA [id number] [place] [address] Consultation Noteon 02-15-20 23 Consultation Note [id number] 0CD:127 Normal [facility] Comment on above: Other Comment: TRACEY RUTH CRR CULTURE URINEon 01-19-2023 CULTURE URINE Culture Observations : VERY LIGHT GROWTH OF MIXED GENITAL SAGE. NO POTENTIAL PATHOGENS SEEN. Normal [facility] Comment on above: Performed By: #### U RCX ####[facility] [address] [address]Dr. Omid Bowden UA RANDOM W/MICROSCOPICon BACTERIA TRACE Abnormal NONE SEEN [facility] Comment on above: Performed By: #### H GB #### [facility] Laboratory [address] [address] [address] Omid Bowden Bilirubin Ql (U) Negative Normal NEGATIVE [facility] Comment on above: Performed By: #### H GB #### [facility] Laboratory [address] [place], [place] [address] Dr. Omid Bowden CAST NONE SEEN Normal NONE SEEN [facility] Comment on above: Performed By: #### H GB #### [facility] Laboratory [address] [place] [address] Dr. Omid Bowden Clarity (U) CLEAR Normal CLEAR [facility] Comment on above: Performed By: #### H GB #### [facility] Laboratory [address] [address] [address] Omid Bowden Color (U) LT. YELLOW Normal YELLOW [facility] Comment on above: Performed By: #### H GB #### [facility] Laboratory [address] [place] [address] Dr. Omid Bowden Crystals LM Nom (Urine sed) NONE SEEN Normal NONE SEEN [facility] Comment on above: Performed By: #### H GB #### [facility] Laboratory [address] [place] [address] Dr. Omid Bowden Epithelial cells LM Ql (Urine sed) RARE Normal NONE SEEN /RARE [facility] Comment on above: Performed By: #### H GB #### [facility] Laboratory [address] [place] [address] Dr. Omid Bowden Glucose Ql (U) Negative Normal NEGATIVE The [facility] Comment on above: Performed By: #### H GB #### [facility] Laboratory [address] [place] [address] Dr. Omid Bowden Hemoglobin Ql (U) Negative Normal NEGATIVE The [facility] Comment on above: Performed By: #### H GB #### [facility] Laboratory [address] [place] [address] Dr. Omid Bowden Ketones Ql (U) Negative Normal NEGATIVE The [facility] Comment on above: Performed By: #### H GB #### [facility] Laboratory [address] [place] [address] Dr. Omid Bowden LEUKOCYTES SMALL Abnormal NEGATIVE [facility] Comment on above: Performed By: #### H GB #### [facility] Laboratory [address] [place] [address] Dr. Omid Bowden MUCOUS NONE SEEN Normal NONE SEEN [facility] Comment on above: Performed By: #### H GB #### [facility] Laboratory [address] [place] [address] Dr. Omid Bowden Nitrite Ql (U) Negative Normal NEGATIVE The [facility] Comment on above: Performed By: #### H GB #### [facility] Laboratory [address] [address] [address] Omid Bowden pH (U) 6.0 [pH] Normal 5-9 [facility] Comment on above: Performed By: #### H GB #### [facility] Laboratory [address] [address] [address] Omid Bowden RBC 0-2 Normal 0-2 [facility] Comment on above: Performed By: #### H GB #### [facility] Laboratory [address] [address] [address] Omid Bowden SPEC GRAVITY <=1.005 Abnormal 1.005-<=1.0 25 [facility] Comment on above: Performed By: #### H GB #### [facility] Laboratory [address] [place] [address] Dr. Omid Bowden UA PROTEIN Negative Normal NEGATIVE/ TRACE [facility] Comment on above: Performed By: #### H GB #### [facility] Laboratory [address] [address] [address] Omid Bowden Urobilinogen Qn (U) 0.2 {Jose'U}/dL Normal 0.2 - 1. 0 [facility] Comment on above: Performed By: #### H GB #### [facility] Laboratory [address] [place] [address] Dr. Omid Bowden WBC 0-2 Abnormal NONE SEEN [facility] Comment on above: Performed By: #### H GB #### [facility] Laboratory [address] [place] [address] Dr. Omid Bowden Creatinine [Mass/volume] in Serum or PlasmaOrdered By: Christiano Gonzales on 11-29-2022 Creatinine [Mass/Vol] 1.37 mg/dL 0.60-1.20 [facility] [place] [facility] Laboratory - Chemistry and C hemistry - challengeOrdered By: Christiano Gonzales on 11-29-2022 GFR/1.73 sq M.predicted MDRD (S/P/Bld) [Vol rate/Area] 39.034 mL/min/{1.73_m2} [facility] No Panel InformationOrdered By: Christiano Gonzales on 11-29-2022 Pharmacy Creatinine Clearance (Chem 31.71 [facility] Urea nitrogen [Mass/volume] in Serum or PlasmaOrdered By: Christiano Gonzales on 11-29-2022 Urea nitrogen [Mass/Vol] 35 mg/dL 04-04 [facility] Surgical Pathologyon 023 Surgical Pathology (NOTE) [...] SURGICAL PATHOLOGY CONSULTATION Patient Name: HARMAN MCLEOD [facility] Rec: [id number] Path Number: [id number] [facility] ANATOMIC PATHOLOGY [address] [place] [phone] [facility] Comment on above: Performed By: #### P PPVS #### [employer] [address] [place] [id number] Mental Health Worker: Fidel Hylton MD Ambulatory Visit Summaryon 0 11-22-2022 Ambulatory Visit Summary HARMAN MCLEOD Berna :1940 Visit Date:11/22/2022 Ambulatory Visit Instructions Your Care Team Attending Physician - CHELSI CARDONA, Iliana Ramirez Primary Care Physician - Hayden ACRDONA, Mateus This Is Your Medications List albuterol [...] and diastolic (congestive) heart failure Atherosclerosis of [place] artery of extremity BMI 36.0-36.9,adult Brain stem [...] bleeding Stage 2 chronic kidney disease Normal [facility] General Surgery Office/Clini c Noteon [...] CARDONA, DANIEL Jose Only if needed [address] [place] [address]- Additional Instructions: Problem List/Past Medical History Ongoing 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 Normal [facility] Comment on above: Result Comment: Elec tronically Signed By: CHELSI CARDONA, Iliana Alvarez\Date and Time Signed: 11/22/22 15:17 EDT [facility]19 [facility]on SARS-CoV-2 (COVID-19) RNA MARII+probe Ql (Unsp spec) Not detected Normal NOT DETECTED [facility] Comment on above: Result Comment: When diagnostic [...] for this test is supported by the Supervisor Net Making of Health and Human Service's declaration that [...] used). Performed By: #### H GB #### [facility] Laboratory [address] [place], [place] [address] Dr. Omid Bowden INFLUENZA A AND B AGon 11-16 INFLUANEGH SEE BELOW Normal [facility] Comment on above: Result Comment: Nega tive for Flu A protein angiten. Infection due to Flu A cannot be ruled out. Flu A angiten in the sample may be below the detection limit of the test. Performed By: #### I NFLUAB ####[facility] [address] [place], [place] [address]IbDr. Omid Bowden INFLUBNEGH SEE BELOW Normal [facility] Comment on above: Result Comment: Nega tive for Flu B protein antigen. Infection due to Flu B cannot be ruled out. Flu B antigen in the sample may be below the detection limit of the test. Performed By: #### I NFLUAB ####[facility] [address] [place], [place] [address]Qh. Omid Bowden INFLUENZA A AG Negative Normal NEGATIVE SEE COMMENT [facility] Comment on above: Performed By: #### I NFLUAB ####[facility] [address] [place], [place] [address]Hi. Omid Bowden INFLUENZA B AG Negative Normal NEGATIVE SEE COMMENT [facility] Comment on above: Performed By: #### I NFLUAB ####[facility] [address] [place], [place] [address]Qk. Omid Bowden CNOVSPon 11-09-2022 CNOVSP Visit (SP) Office ([facility]) HARMAN MCLEOD ([id number]) 1940 F Date Time Provider Department 11/09/22 2:00 PM WALLACE STONE During your visit today, we recorded the following information about you: Temperature Pulse Respiration Blood pressure 97.1 degrees 66/minute 18/minute 142/72 Weight Height 84.7 kg 1.549 m Wallace Stone MD 11/09/2022 2:24 PM Signed PATIENT NAME: Harman Mcleod CLINIC NO.: [id number] ATTENDING PHYSICIAN: Wallace Stone MD DATE OF [...] LABS: Gluc (more content not included)... Normal [facility] CNPKatharina 11-09-2022 CNPN Telephone (Adaptly) HARMAN MCLEOD ([id number]) 1940 F Date Time Provider Department 11/09/22 WALLACE STONE During your visit today, we recorded the following information about you: Carlos Brooks 11/09/2022 2:45 PM Signed [place]ascular [place] [facility] Previous patient of Dr. Mendez 3 years or more. Janeth/Dudley: Can you please refer patient and follow up? Thanks! Carlos Pereira Pss 11/10/2022 8:46 AM Signed Janeth: Information ready for you. Adriana Pereira [facility] Kira Ko [facility] 11/10/2022 9:38 AM Signed Records faxed. Adriana Pereira Pss 11/16/2022 8:42 AM Signed Called Vascular office spoke with Jessy. They have received this referral and have patient scheduled with Dr Gonzales on 11/23 @ 10:00. Adriana Pereira [facility] Allergies As of Date: 11/09/2022 Noted Allergy Reaction CEFDINIR 09/13/2022 14 - Other: See Comments 11 - Vomiting CIPROFLOXACIN 09/29/2017 14 - Other: See Comments Comments: tendon issues OXYCODONE-ACETAMINOPHE N 03/31/2013 5 - Intolerance 8 - GI Upset TRAMADOL 11/09/2022 1 - Mental Status Change Date Reviewed: 11/09/2022 Reviewed by: Jeaneth Perdomo - Fully Assessed Reason for Visit: Referral Information [1879] Cmt: Vascular Consult Prescriptions as of 11/16/2022 [...] daily at bedtime. Cut in half - Rnsiu-7-TVF-EPA-Fish Oil 1,000 mg (120 mg-180 mg) cap Take 2 g by mouth twice daily. - isosorbide mononitrate ER (IMDUR) 60 mg 24 hr tablet Take 60 mg by mouth twice daily. 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 Encounter Status:Closed by CARLOS BROOKS on 11/16/22 Normal [facility] Ambulatory Visit Summaryon 0 11-08-2022 Ambulatory Visit Summary MCLEODHARMAN WOLFE Berna :1940 Visit Date:11/08/2022 Ambulatory Visit Instructions [...] and diastolic (congestive) heart failure Atherosclerosis of [place] artery of extremity BMI 36.0-36.9,adult Brain stem [...] bleeding Stage 2 chronic kidney disease Normal [facility] General Surgery Office/Clini c Noteon [...] and diastolic (congestive) heart failure Atherosclerosis of [place] artery of extremity BMI 36.0-36.9,adult Brain stem [...] History Tran (more content not included)... Normal [facility] Comment on above: Result Comment: Elec tronically Signed By: Iliana GAGNON MD\.br\Date and Time Signed: 11/08/22 14:22 EST Ambulatory [...] GAGNON MD Where: General Surgery Chelsi/Angelita Victor [facility] General Surgery Office/Clini c Noteon [...] and diastolic (congestive) heart failure Atherosclerosis of [place] artery of extremity BMI 36.0-36.9,adult Brain stem [...] Family Histor (more content not included)... Normal [facility] Comment on above: Result Comment: [...] MIGUELITO TELLEZ Date: 2022-11-02 17:17 Normal [facility] Pathology Noteon 10-26-2022 Pathology Note [id number]#1.0 0CD:127 Normal [facility] Ambulatory Visit Summaryon 0 10-25-2022 [...] Iliana Ramirez Where: General Surgery Chelsi/Angelita Victor [facility] General Surgery Office/Clini c Noteon [...] and diastolic (congestive) heart failure Atherosclerosis of [place] artery of extremity BMI 36.0-36.9,adult Brain stem [...] disease: Mo (more content not included)... Normal [facility] Comment on above: Result Comment: Elec tronically Signed By: CHELSI CARDONA, Iliana Alvarez\Date and Time Signed: 10/25/22 16:13 EST Operative Reporton Operative Report [id number] 0CD:127 Normal [facility] RAD - Ultrasound Reporton RAD - Ultrasound Report [id number]#1.0 0CD:127 Normal [facility] NM SENTNL NODEon 10-19-2022 NM [...] by: KRISTIN JAQUEZ Date: 2022-10-19 10:41 Normal [facility] POINT OF CARE GLUCOSEon Glucose [Mass/Vol] 153 mg/dL Critically high 74-[address] [facility] Comment on above: Performed By: #### P OCGLUC #### [facility] Laboratory [address] [place] [address] Dr. Omid Bowden RAD - MISCon 10-19-2022 RAD - MISC [id number] 0CD:127 Normal [facility] RAD - MISC [id number] 0CD:127 Normal [facility] RAD - Ultrasound Reporton RAD - Ultrasound Report [id number] 0CD:127 Normal [facility] RAD - Ultrasound Report [id number] 0CD:127 Normal [facility] US BREAST SPECIMENon 023 US BREAST SPECIMEN Patient: HARMAN MCLEOD Exam Date: 10/19/2022 : 1940 Gender:F Ordering : DR ILIANA GAGNON . Admission #: [id number] Family : Order #: [id number] CLICK HERE TO VIEW EXAM RADIOLOGY REPORT PROCEDURE: US BREAST SPECIMEN COMPARISON: None. INDICATIONS: Specimen from breast FINDINGS: Breast specimen demonstrates inclusion of the targeted mass as well as the micro clip marker CONCLUSION: Targeted mass and micro clip marker included within the specimen Dictated by: Judson Bauman MD on 10/19/2022 at 11:46 Approved by: Judson Bauman MD on 10/19/2022 at 11:47 [facility] US GUIDE LOCAL BREAST RTon 0 10-19-2022 US GUIDE LOCAL BREAST RT Patient: HARMAN MCLEOD Exam Date: 10/19/2022 : 1940 Gender:F Ordering : DR ILIANA GAGNON . Admission #: [id number] Family : Order #: [id number] CLICK HERE TO VIEW EXAM RADIOLOGY REPORT [...] clip marker LOCATION: Right breast 9 NEEDLE: Rianna spring hook; 20 g by 5 cm needle and wire. MEDICATION: 6 cubic cm Superficial and deep buffered 1% lidocaine. COMPLICATIONS: None. CONCLUSION: Technically successful hookwire localization. Dictated by: Judson Bauman MD on 10/19/2022 at 09:04 Approved by: Judson Bauman MD on 10/19/2022 at 09:05 [facility] US SENTINEL NODEon 3 US [...] by: JUDSON BAUMAN Date: 2022-10-19 08:59 Normal [facility] RAD - MISCon 10-17-2022 RAD - MISC [id number]#1.0 0CD:127 Normal [facility] CBC AUTO DIFFon 10-11-2022 BASO # 0.0 103/ul Normal 0.0-0.1 [facility] Comment on above: Performed By: #### H GB #### [facility] Laboratory [address] [place] [address] Dr. Omid Bowden Basophils/100 WBC (Bld) 0.2 % Normal 0.2-2.0 [facility] Comment on above: Performed By: #### H GB #### [facility] Laboratory [address] [address] [address] Omid Bowden EO # 0.0 103/ul Normal 0.0-0.7 [facility] Comment on above: Performed By: #### H GB #### [facility] Laboratory [address] [address] [address] Omid Bowden Eosinophils/100 WBC (Bld) 0.3 % Critically low 0.9-7.0 [facility] Comment on above: Performed By: #### H GB #### [facility] Laboratory [address] [address] [address] Omdi Bowden Erythrocyte distribution width (RBC) [Ratio] 13.7 % Normal 11.0-15.0 [facility] Comment on above: Performed By: #### H GB #### [facility] Laboratory [address] [place] [address] Dr. Omid Bowden Hematocrit (Bld) [Volume fraction] 39.6 % Normal 36.0-48.0 [facility] Comment on above: Performed By: #### H GB #### [facility] Laboratory [address] [place] [address] Dr. Omid Bowden Hemoglobin (Bld) [Mass/Vol] 12.3 g/dL Normal 12.0-16.0 [facility] Comment on above: Performed By: #### H GB #### [facility] Laboratory [address] [place] [address] Dr. Omid Bowden IG # 0.06 10e3/ul Critically high 0.00-0.03 [facility] Comment on above: Performed By: #### H GB #### [facility] Laboratory [address] [place] [address] Dr. Omid Bowden IG % 0.5 % Normal 0.0-0.5 [facility] Comment on above: Performed By: #### H GB #### [facility] Laboratory [address] [place] [address] Dr. Omid Bowden LYMPH # 2.9 103/ul Normal 1.2-3.8 [facility] Comment on above: Performed By: #### H GB #### [facility] Laboratory [address] [place] [address] Dr. Omid Bowden Lymphocytes/100 WBC (Bld) 26.2 % Normal 20.5-60.0 [facility] Comment on above: Performed By: #### H GB #### [facility] Laboratory [address] [place] [address] Dr. Omid Bowden MANUAL DIFF REQ NO Normal [facility] Comment on above: Performed By: #### H GB #### [facility] Laboratory [address] [place] [address] Dr. Omid Bowden MCH (RBC) [Entitic mass] 28.3 pg Normal 26.7-34.0 [facility] Comment on above: Performed By: #### H GB #### [facility] Laboratory [address] [place] [address] Dr. Omid Bowden MCHC (RBC) [Mass/Vol] 31.1 g/dL Normal 29.9-35.2 [facility] Comment on above: Performed By: #### H GB #### [facility] Laboratory [address] [place] [address] Dr. Omid Bowden MCV (RBC) [Entitic vol] 91.2 fL Normal 81.0-99.0 [facility] Comment on above: Performed By: #### H GB #### [facility] Laboratory [address] [address] [address] Omid Bowden MONO # 0.9 103/ul Critically high 0.3-0.8 [facility] Comment on above: Performed By: #### H GB #### [facility] Laboratory [address] [address] [address] Omid Bowden Monocytes/100 WBC (Bld) 8.3 % Normal 1.7-12.0 [facility] Comment on above: Performed By: #### H GB #### [facility] Laboratory [address] [address] [address] Omid Bowden NEUT # 7.0 103/ul Critically high 1.4-6.5 [facility] Comment on above: Performed By: #### H GB #### [facility] Laboratory [address] [address] [address] Omid Bowden Neutrophils/100 WBC (Bld) 64.5 % Normal 43.0-75.0 [facility] Comment on above: Performed By: #### H GB #### [facility] Laboratory [address] [address] [address] Omid Bowden Platelet mean volume (Bld) [Entitic vol] 9.2 fL Critically low 9.5-13.5 [facility] Comment on above: Performed By: #### H GB #### [facility] Laboratory [address] [address] [address] Omid Bowden PLT 346 103/ul Normal 150-450 [facility] Comment on above: Performed By: #### H GB #### [facility] Laboratory [address] [address] [address] Omid Bowden RBC 4.34 106/ul Normal 4.20-5.40 [facility] Comment on above: Performed By: #### H GB #### [facility] Laboratory [address] [address] [address] Omid Bowden WBC 10.9 103/ul Normal 4.0-11.0 [facility] Comment on above: Performed By: #### H GB #### [facility] Laboratory [address] [address] [address] Omid Bowden PROF CHEM 8 (BAS METB)on Anion gap [Moles/Vol] 11.0 mmol/L Normal [facility] Comment on above: Performed By: #### L IPID, BMP #### [facility] Laboratory [address] [place] [address] Dr. Omid Bowden Calcium [Mass/Vol] 9.6 mg/dL Normal 8.5-10.1 [facility] Comment on above: Performed By: #### L IPID, BMP #### [facility] Laboratory [address] [address] [address] Omid Bowden Chloride [Moles/Vol] 99 mmol/L Normal 98-107 [facility] Comment on above: Performed By: #### L IPID, BMP #### [facility] Laboratory [address] [place] [address] Dr. Omid Bowden CO2 [Moles/Vol] 32.0 mmol/L Normal 21.0-32.0 [facility] Comment on above: Performed By: #### L IPID, BMP #### [facility] Laboratory [address] [address] [address] Omid Bowden Creatinine [Mass/Vol] 1.03 mg/dL Critically high 0.55-1.02 [facility] Comment on above: Performed By: #### L IPID, BMP #### [facility] Laboratory [address] [address] [address] Omid Bowden EGFR-AF LIBERIAN >60 Normal >=60 [facility] Comment on above: Performed By: #### L IPID, BMP #### [facility] Laboratory [address] [address] [address] Omid Bowden EGFR-NON AF LIBERIAN 52 mL/min/1.73m2 Critically low >=60 [facility] Comment on above: Performed By: #### L IPID, BMP #### [facility] Laboratory [address] [place] [address] Dr. Omid Bowden Glucose [Mass/Vol] 94 mg/dL Normal 74-106 [facility] Comment on above: Performed By: #### L IPID, BMP #### [facility] Laboratory [address] [place] [address] Dr. Omid Bowden Potassium [Moles/Vol] 4.0 mmol/L Normal 3.5-5.1 [facility] Comment on above: Performed By: #### L IPID, BMP #### [facility] Laboratory [address] [place] [address] Dr. Omid Bowden Sodium [Moles/Vol] 138 mmol/L Normal 136-145 [facility] Comment on above: Performed By: #### L IPID, BMP #### [facility] Laboratory [address] [place] [address] Dr. Omid Bowden Urea nitrogen [Mass/Vol] 28.0 mg/dL Critically high 7.0-18.0 [facility] Comment on above: Performed By: #### L IPID, BMP #### [facility] Laboratory [address] [place] [address] Dr. Omid Bowden Urea nitrogen/Creatinine [Mass ratio] 27.2 mg/mg Normal [facility] Comment on above: Performed By: #### L IPID, BMP #### [facility] Laboratory [address] [place] [address] Dr. Omid Bowden PROTIMEon 10-11-2022 INR Coag (PPP) [Relative time] 0.99 {INR} Normal [facility] Comment on above: Performed By: #### H GB #### [facility] Laboratory [address] [place] [address] Dr. Omid Bowden INR GUIDELINES SEE BELOW Normal [facility] Comment on above: Result Comment: PERLITA RED INR: 2.0 - 3.0 CONDITIONS NOT LISTED BELOW 2.5 - 3.5 FOR PROSTHETIC HEART VALVE REPLACEMENT 2.5 - 3.5 RECURRENT THROMBOSIS Performed By: #### H GB #### [facility] Laboratory [address] [place] [address] Dr. Omid Bowden PT Coag (PPP) [Time] 10.5 s Normal 9.0-11.6 [facility] Comment on above: Performed By: #### H GB #### [facility] Laboratory [address] [place] [address] Dr. Omid Bowden PTTon 10-11-2022 aPTT Coag (Bld) [Time] 28.6 s Normal 22.3-36.2 [facility] Comment on above: Performed By: #### H GB #### [facility] Laboratory [address] [place] [address] Dr. Omid Bowden Consultation Noteon 10-06-19 Consultation Note [id number]#[id number] 0CD:127 Normal [facility] INSULINon 10-01-2022 Insulin 22.8 uIU/mL Normal 2.6-24.9 [facility] Comment on above: Performed By: #### L IPID, BMP #### [facility] Laboratory [address] [place] [address] Dr. Omid Bowden GLYCOHEMOGLOBIN A1Con 2022 ADA RECOMMENDATION SEE BELOW Normal [facility] Comment on above: Result Comment: ADA RECOMMENDED LIMIT 4.0 - 6.0 ADA THERAPEUTIC TARGET < 7.0 ACTION SUGGESTED > 7.0 Performed By: #### H GB #### [facility] Laboratory [address] [place] [address] Dr. Omid Bowden Glucose [Mass/Vol] 177 mg/dL Normal [facility] Comment on above: Performed By: #### H GB #### [facility] Laboratory [address] [place] [address] Dr. Omid Bowden HbA1c (Bld) [Mass fraction] 7.8 % Critically high 4.5-6.2 [facility] Comment on above: Performed By: #### H GB #### [facility] Laboratory [address] [place] [address] Dr. Omid Bowden PROF 14(COMP METB)on 023 Albumin [Mass/Vol] 3.0 g/dL Critically low 3.4-5.0 [facility] Comment on above: Performed By: #### C MP ####[facility] [address] [address]Dr. Omid Bowden Albumin/Globulin [Mass ratio] 0.7 {ratio} Normal [facility] Comment on above: Performed By: #### C MP ####[facility] [address] [address]Dr. Omid Kal ALP [Catalytic activity/Vol] 73 U/L Normal 46-116 [facility] Comment on above: Performed By: #### C MP ####[facility] [address] [place], [place] [address]Dr. Omid Kal ALT [Catalytic activity/Vol] 16 U/L Normal 14-59 [facility] Comment on above: Performed By: #### C MP ####[facility] [address] [place], [place] [address]Dr. Aixamegan Kal Anion gap [Moles/Vol] 11.3 mmol/L Normal [facility] Comment on above: Performed By: #### C MP ####[facility] [address] [place], [place] [address]Dr. Omid Kal AST [Catalytic activity/Vol] 14 U/L Critically low 15-37 [facility] Comment on above: Performed By: #### C MP ####[facility] [address] [place], [place] [address]Dr. Omid Kal Bilirubin [Mass/Vol] 0.3 mg/dL Normal 0.2-1.0 [facility] Comment on above: Performed By: #### C MP ####[facility] [address] [place], [place] [address]Dr. Aixamegan Bowden Calcium [Mass/Vol] 9.5 mg/dL Normal 8.5-10.1 [facility] Comment on above: Performed By: #### C MP ####[facility] [address] [place], [place] [address]Dr. Omid Bowden Chloride [Moles/Vol] 102 mmol/L Normal 98-107 [facility] Comment on above: Performed By: #### C MP ####[facility] [address] [place], [place] [address]Dr. Omid Bowden CO2 [Moles/Vol] 31.1 mmol/L Normal 21.0-32.0 [facility] Comment on above: Performed By: #### C MP ####[facility] [address] [address]Dr. Omid Bowden Creatinine [Mass/Vol] 1.28 mg/dL Critically high 0.55-1.02 [facility] Comment on above: Performed By: #### C MP ####[facility] [address] [address]Dr. Omid Kal EGFR-AF LIBERIAN 49 mL/min/1.73m2 Critically low >=60 [facility] Comment on above: Performed By: #### C MP ####[facility] [address] [address]Dr. Omid Bowden EGFR-NON AF LIBERIAN 40 mL/min/1.73m2 Critically low >=60 [facility] Comment on above: Performed By: #### C MP ####[facility] [address] [place], [place] [address]Dr. Omid Kal Globulin (S) [Mass/Vol] 4.4 g/dL Normal [facility] Comment on above: Performed By: #### C MP ####[facility] [address] [place], [place] [address]Dr. Aixamegan Bowden Glucose [Mass/Vol] 103 mg/dL Normal 74-106 [facility] Comment on above: Performed By: #### C MP ####[facility] [address] [place], [place] [address]Dr. Omid Bowden Potassium [Moles/Vol] 4.4 mmol/L Normal 3.5-5.1 [facility] Comment on above: Performed By: #### C MP ####[facility] [address] [place], [place] [address]Dr. Omid Bowden Protein [Mass/Vol] 7.4 g/dL Normal 6.4-8.2 [facility] Comment on above: Performed By: #### C MP ####[facility] [address] [place], [place] [address]Dr. Omid Bowden Sodium [Moles/Vol] 140 mmol/L Normal 136-145 [facility] Comment on above: Performed By: #### C MP ####[facility] [address] [place], [place] [address]Lt. Omid Bowden Urea nitrogen [Mass/Vol] 27.0 mg/dL Critically high 7.0-18.0 [facility] Comment on above: Performed By: #### C MP ####[facility] [address] [place], [place] [address]Po. Omid Bowden Urea nitrogen/Creatinine [Mass ratio] 21.1 mg/mg Normal [facility] Comment on above: Performed By: #### C MP ####[facility] [address] [id number] Omid Bowden Formson 09-29-2022 Forms [id number]#1.0 0CD:127 Normal [facility] Consent for Procedure/Surger yon 09-26-2022 Consent for Procedure/Surgery [id number]#1.0 0CD:127 Normal [facility] Consultation Noteon 09-23-19 Consultation Note [id number]#1.0 0CD:127 Normal [facility] CNOVon 09-22-2022 CNOV Office Visit (RADTSA ) HARMAN MCLEOD ([id number]) 1940 F Date Time Provider Department 09/22/22 [...] the Department of Radiation Oncology at the [facility] with Marcin Shah MD. She was accompanied today by her family. Final recommendations will be communicated back to the requesting physician by way of the shared medical record, or letter to requesting physician via [place] mail. HISTORY OF PRESENT ILLNESS: Ms. Mcleod is an 82-year-old woman from [place], [place] who was discovered on screening mammogram [...] tablet crenshaw (more content not included)... Normal [facility] CNOVSPon 09-22-2022 CNOVSP Visit (SP) Office (HEMASA) HARMAN MCLEOD ([id number]) 1940 F Date Time Provider Department 09/22/22 11:30 AM WALLACE STONE During your visit today, we recorded the following information about you: Temperature Pulse Respiration Blood pressure 97.8 degrees 70/minute 16/minute 137/64 Weight Height 84.8 kg 1.549 m Wallace Stone MD 09/22/2022 5:19 PM Signed PATIENT NAME: Harman Mcleod CLINIC NO.: [id number] ATTENDING PHYSICIAN: Wallace Stone MD DATE OF [...] score of 1+ and FISH negative at [facility]. This patient was subsequently referred to Dr. Iliana Gagnon for surgical consultation. Patient denies any previous history of abnormal mammograms and or breast biopsy. She has had a recent bone density in [place] and was diagnosed with osteoporosis and started on Prolia as well. Patient has a sister who was diagnosed with breast cancer at the age of 82 and her daughter diagnosed with breast cancer at the age of 37. She quit smoking approximately 4 years ago. 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 She [...] mouth daily at bedtime. Cut in half Spnnd-5-AFX-EPA-Fish Oil 1,000 mg (120 mg-180 mg) cap [...] high r (more content not included)... Normal [facility] CNPNon 09-22-2022 CNPN Telephone (HEMASA) HARMAN MCLEOD ([id number]) 1940 F Date Time Provider Department 09/22/22 [...] Fully Assessed Reason for Visit: Care Coordination [3621] Cmt: Surgery update Prescriptions as of 09/22/2022 [...] daily at bedtime. Cut in half - Cdmro-2-PRK-EPA-Fish Oil 1,000 mg (120 mg-180 mg) cap Take 2 g by mouth twice daily. - isosorbide mononitrate ER (IMDUR) 60 mg 24 hr tablet Take 60 mg by mouth twice daily. 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 Performed By: #### C VDTB ####[facility] [address] [place], [place] [address]Dr. Omid Bowden INFLUENZA A AND B AGon 09-21 [facility] SEE BELOW Normal [facility] Comment on above: Result Comment: Nega tive for Flu A protein angiten. Infection due to Flu A cannot be ruled out. Flu A angiten in the sample may be below the detection limit of the test. Performed By: #### I NFLUAB ####[facility] [address] [place], [place] [address]Dr. Omid [facility] INFLUBNEGH SEE BELOW Normal [facility] Comment on above: Result Comment: Nega tive for Flu B protein antigen. Infection due to Flu B cannot be ruled out. Flu B antigen in the sample may be below the detection limit of the test. Performed By: #### I NFLUAB ####[facility] [address] [place], [place] [address]Dr. megan [facility] INFLUENZA A AG Negative Normal NEGATIVE SEE COMMENT [facility] Comment on above: Performed By: #### I NFLUAB ####[facility] [address] [place], [place] [address]Dr. megan [facility] INFLUENZA B AG Negative Normal NEGATIVE SEE COMMENT [facility] Comment on above: Performed By: #### I NFLUAB ####[facility] [address] [place], [place] [address]Dr. Aixamegan Bowden LIPID PROFILEon 09-16-2022 CHOL-HDL RATIO NORM SEE BELOW Normal [facility] Comment on above: Result Comment: 3.3 - 4.4 LOW RISK 4.4 - 7.1 AVERAGE RISK 7.1 - 11.0 MODERATE RISK >11.0 HIGH RISK Performed By: #### L IPID, BMP #### [facility] Laboratory [address] [address] [address] Omid Bowden Cholesterol [Mass/Vol] 210 mg/dL Critically high <=200 [facility] Comment on above: Performed By: #### L IPID, BMP #### [facility] Laboratory [address] [address] [address] Omid Bowden Cholesterol in HDL [Mass/Vol] 49 mg/dL Normal 40-60 [facility] Comment on above: Performed By: #### L IPID, BMP #### [facility] Laboratory [address] [address] [address] Oimd Bowden Cholesterol in LDL [Mass/Vol] 84.2 mg/dL Normal [facility] Comment on above: Performed By: #### L IPID, BMP #### [facility] Laboratory [address] [address] [address] Omid Bowden Cholesterol.total/Chol esterol in HDL [Mass ratio] 4.3 {ratio} Normal [facility] Comment on above: Performed By: #### L IPID, BMP #### [facility] Laboratory [address] [place] [address] Dr. Omid Bowden HDL NORMAL > or = 60 mg/dl - LO W CARDIOVASCULAR RISK <40 mg/dl - HIGH CARDIOVASCULAR RISK Normal [facility] Comment on above: Performed By: #### L IPID, BMP #### [facility] Laboratory [address] [address] [address] Omid Bowden LDL CALC NORMAL SEE BELOW Normal [facility] Comment on above: Result Comment: <100 mg/dl OPTIMAL 100 - 129 mg/dl NEAR OR ABOVE OPTIMAL 130 - 159 mg/dl BORDERLINE HIGH 160 - 189 mg/dl HIGH >190 mg/dl VERY HIGH Performed By: #### L IPID, BMP #### [facility] Laboratory [address] [address] [address] Omid Bowden Triglyceride [Mass/Vol] 384 mg/dL Critically high <=150 [facility] Comment on above: Performed By: #### L IPID, BMP #### [facility] Laboratory [address] [place] [address] Dr. Omid Bowden VLDL CALC 76.8 mg/dL Normal [facility] Comment on above: Performed By: #### L IPID, BMP #### [facility] Laboratory [address] [place] [address] Dr. Omid Bowden PROF CHEM 8 (BAS METB)on Anion gap [Moles/Vol] 10.8 mmol/L Normal [facility] Comment on above: Performed By: #### L IPID, BMP #### [facility] Laboratory [address] [place] [address] Dr. Omid Bowden Calcium [Mass/Vol] 8.8 mg/dL Normal 8.5-10.1 [facility] Comment on above: Performed By: #### L IPID, BMP #### [facility] Laboratory [address] [place] [address] Dr. Omid Bowden Chloride [Moles/Vol] 98 mmol/L Normal 98-107 [facility] Comment on above: Performed By: #### L IPID, BMP #### [facility] Laboratory [address] [place] [address] Dr. Omid Bowden CO2 [Moles/Vol] 34.5 mmol/L Critically high 21.0-32.0 [facility] Comment on above: Performed By: #### L IPID, BMP #### [facility] Laboratory [address] [place] [address] Dr. Omid Bowden Creatinine [Mass/Vol] 1.17 mg/dL Critically high 0.55-1.02 [facility] Comment on above: Performed By: #### L IPID, BMP #### [facility] Laboratory [address] [place] [address] Dr. Omid Bowden EGFR-AF LIBERIAN 54 mL/min/1.73m2 Critically low >=60 [facility] Comment on above: Performed By: #### L IPID, BMP #### [facility] Laboratory [address] [address] [address] Omid Bowden EGFR-NON AF LIBERIAN 45 mL/min/1.73m2 Critically low >=60 [facility] Comment on above: Performed By: #### L IPID, BMP #### [facility] Laboratory [address] [address] [address] Omid Bowden Glucose [Mass/Vol] 193 mg/dL Critically high 74-[address] [facility] Comment on above: Performed By: #### L IPID, BMP #### [facility] Laboratory [address] [address] [address] Omid Bowden Potassium [Moles/Vol] 3.3 mmol/L Critically low 3.5-5.1 [facility] Comment on above: Performed By: #### L IPID, BMP #### [facility] Laboratory [address] [address] [address] Omid Bowden Sodium [Moles/Vol] 140 mmol/L Normal 136-145 [facility] Comment on above: Performed By: #### L IPID, BMP #### [facility] Laboratory [address] [address] [address] Omid Bowden Urea nitrogen [Mass/Vol] 31.0 mg/dL Critically high 7.0-18.0 [facility] Comment on above: Performed By: #### L IPID, BMP #### [facility] Laboratory [address] [address] [address] Omid Bowden Urea nitrogen/Creatinine [Mass ratio] 26.5 mg/mg Normal [facility] Comment on above: Performed By: #### L IPID, BMP #### [facility] Laboratory [address] [address] [address] Omid Bowden Facesheeton 09-13-2022 Facesheet [id number]#1.0 0CD:127 Normal [facility] Consultation Noteon 09-01-20 22 Consultation Note [id number]#1.0 0CD:127 Normal [facility] ED Note-Physicianon 09-01-20 ED Note-Physician [id number]#1.0 0CD:127 Normal [facility] Lab Reportson 09-01-2022 Lab Reports [id number]#1.0 0CD:127 Normal [facility] Lab Reports [id number]#1.0 0CD:127 Normal [facility] Physician Referralon 022 Physician Referral [id number]#1.0 0CD:127 Normal [facility] C. DIFF PCRon 08-23-2022 C. DIFFICILE PCR Negative Normal NEGATIVE [facility] Comment on above: Performed By: #### C DIFPOC ####[facility] [address] [place], [place] [address]Dr. Omid Bowden CBC AUTO DIFFon 08-19-2022 BASO # 0.0 103/ul Normal 0.0-0.1 [facility] [place] Comment on above: Performed By: #### C BC ####[facility] [place] Zox[address] [place], [place] [address]Dr. Omid Bowden Basophils/100 WBC (Bld) 0.3 % Normal 0.2-2.0 [facility] [place] Comment on above: Performed By: #### C BC ####[facility] [place] Uiv[address]ilb[address] [place], [place] [address]Dr. Omid Bowden EO # 0.5 103/ul Normal 0.0-0.7 [facility] [place] Comment on above: Performed By: #### C BC ####[facility] [place] Wpndcpy[address] [place], [place] [address]Dr. Omid Bowden Eosinophils/100 WBC (Bld) 3.2 % Normal 0.9-7.0 [facility] [place] Comment on above: Performed By: #### C BC ####[facility] [place] Avbcikmnub[address] [place], [place] [address]Dr. Omid Bowden Erythrocyte distribution width (RBC) [Ratio] 14.1 % Normal 11.0-15.0 [facility] Comment on above: Performed By: #### C BC ####[facility] [place] [address] [place] [address]Dr. Omid Bowden Hematocrit (Bld) [Volume fraction] 36.1 % Normal 36.0-48.0 [facility] [place] Comment on above: Performed By: #### C BC ####[facility] [place] [address] [place] [address]Dr. Omid Bowden Hemoglobin (Bld) [Mass/Vol] 11.7 g/dL Critically low 12.0-16.0 [facility] Comment on above: Performed By: #### C BC ####[facility] [place] Eveyre[address]cs[address] [place] [address]DrMedardo Omid Bowden IG # 0.08 10e3/ul Critically high 0.00-0.03 [facility] Comment on above: Performed By: #### C BC ####[facility] [place] Yqughxgayq[address] [place], [place] [address]Dr. Omid Bowden IG % 0.5 % Normal 0.0-0.5 [facility] Comment on above: Performed By: #### C BC ####[facility] [place] Yelixwnvv[address] [place], [place] [address]DrMedardo Omid Bowden LYMPH # 1.2 103/ul Normal 1.2-3.8 [facility] [place] Comment on above: Performed By: #### C BC ####[facility] [place] Cmvoicawuu[address] [place], [place] [address]DrMedardo Omid Bowden Lymphocytes/100 WBC (Bld) 7.5 % Critically low 20.5-60.0 [facility] [place] Comment on above: Performed By: #### C BC ####[facility] [place] Oazaif[address] [place], [place] [address]DrMedardo Omid Kal MANUAL DIFF REQ NO Normal [facility] Comment on above: Performed By: #### C BC ####[facility] [place] Pcstvvos[address] [place], [place] [address]DrMedardo Bowden MCH (RBC) [Entitic mass] 29.2 pg Normal 26.7-34.0 [facility] [place] Comment on above: Performed By: #### C BC ####[facility] [place] [address]sp[address] [place] [address]Dr. Omid Kal MCHC (RBC) [Mass/Vol] 32.4 g/dL Normal 29.9-35.2 [facility] [place] Comment on above: Performed By: #### C BC ####[facility] [place] Eykvzztcko[address] [place], [place] [address]Dr. Omid Bowden MCV (RBC) [Entitic vol] 90.0 fL Normal 81.0-99.0 [facility] [place] Comment on above: Performed By: #### C BC ####[facility] [place] Fcjiheczcc[address] [place], [place] [address]Dr. Omid Bowden MONO # 1.0 103/ul Critically high 0.3-0.8 [facility] Comment on above: Performed By: #### C BC ####[facility] [place] Wxich[address]zda[address] [place], [place] [address]Dr. Omid Bowden Monocytes/100 WBC (Bld) 6.8 % Normal 1.7-12.0 [facility] [place] Comment on above: Performed By: #### C BC ####[facility] [place] A[address]tn[address] [place], [place] [address]Dr. Omid Bowden NEUT # 12.5 103/ul Critically high 1.4-6.5 [facility] Comment on above: Performed By: #### C BC ####[facility] [place] Lkrhjjyz[address] [place], [place] [address]Dr. Omid Bowden Neutrophils/100 WBC (Bld) 81.7 % Critically high 43.0-75.0 [facility] [place] Comment on above: Performed By: #### C BC ####[facility] [place] U[address]iybzvv[address] [place], [place] [address]Dr. Omid Bowden Platelet mean volume (Bld) [Entitic vol] 8.9 fL Critically low 9.5-13.5 [facility] [place] Comment on above: Performed By: #### C BC ####[facility] [place] [address] [place], [place] [address]Ut. Omid Bowden PLT 252 103/ul Normal 150-450 [facility] [place] Comment on above: Performed By: #### C BC ####[facility] [place] [address] [place], [place] [address]Kd. Omid Bowden RBC 4.01 106/ul Critically low 4.20-5.40 [facility] Comment on above: Performed By: #### C BC ####[facility] [place] [address] [place], [place] [address]Av. Omid Bowden WBC 15.3 103/ul Critically high 4.0-11.0 [facility] Comment on above: Performed By: #### C BC ####[facility] [place] [address] [place], [place] [address]Ij. Omid Bowden IRONon 08-19-2022 Iron [Mass/Vol] 59.0 ug/dL Normal 50.0-170.0 [facility] Comment on above: Performed By: #### H GB #### [facility] [place] Laboratory [address] [place], [place] [address] Dr. Omid Bowden MAMMO POST BIOPSY RIGHTon MAMMO POST BIOPSY RIGHT Patient: HARMAN MCLEOD Exam Date: 08/19/2022 : 1940 Gender:F Ordering : DR MATEUS PERRY . Admission #: [id number] Family : Order #: [id number] CLICK HERE TO VIEW EXAM This report [...] Bauman MD on 09/06/2022 at 09:57 Normal [facility] PROTIMEon 08-19-2022 INR Coag (PPP) [Relative time] 0.99 {INR} Normal [facility] [place] Comment on above: Performed By: #### P T, PTT ####[facility] [place] [address] [place] [address]Dr. Omid Bowden INR GUIDELINES SEE BELOW Normal [facility] Comment on above: Result Comment: PERLITA RED INR: 2.0 - 3.0 CONDITIONS NOT LISTED BELOW 2.5 - 3.5 FOR PROSTHETIC HEART VALVE REPLACEMENT 2.5 - 3.5 RECURRENT THROMBOSIS Performed By: #### P T, PTT ####[facility] [place] [address] [place] [address]Dr. Omid Bowden PT Coag (PPP) [Time] 10.7 s Normal 9.0-11.6 [facility] Comment on above: Performed By: #### P T, PTT ####[facility] [place] [address] [place] [address]Dr. Omid Bowden PTTon 08-19-2022 aPTT Coag (Bld) [Time] 26.0 s Normal 22.3-36.2 [facility] Comment on above: Performed By: #### P T, PTT ####[facility] [place] [address] [place] [address]Dr. Omid Bowden US VAC ASST BX BRST RT W CLI Jose Maria 08-19-2022 US VAC ASST BX BRST RT W CLIP Patient: HARMAN MCLEOD Exam Date: 08/19/2022 : 1940 Gender:F Ordering : DR MATEUS PERRY . Admission #: [id number] Family : Order #: [id number] CLICK HERE TO VIEW EXAM This report [...] Bauman MD on 09/06/2022 at 09:55 Normal [facility] CULTURE URINEon 08-16-2022 CULTURE URINE Isolate 1 [...] R F Nitrofurantoin <=16 S F Normal [facility] Comment on above: Performed By: #### U RCX ####[facility] [place] [address] [place], [place] [address]OeDr. Omid Bowden CARDIAC ADILIA ADMITon 022 CK [Catalytic activity/Vol] 128 U/L Normal 26-192 [facility] Comment on above: Performed By: #### L IPID, BMP #### [facility] [place] Laboratory [address] [place], [place] [address] Dr. Omid Bowden CK.MB [Mass/Vol] 2.88 ng/mL Normal <=3.60 [facility] Comment on above: Performed By: #### L IPID, BMP #### [facility] [place] Laboratory [address] [place] [address] Dr. Omid Bowden HSTROP 24.1 pg/mL Normal 4.0-51.3 [facility] Comment on above: Result Comment: CUT- OFF POINTS HAVE BEEN ESTABLISHED BASED ON THE FOURTH UNIVERSAL DEFINITIONS OF MYOCARDIAL INFARCTION. THE UPPER REFERENCE LIMIT (URL) OF TROPONIN, DEFINED THE 99TH PERCENTILE OF cTnI DISTRIBUTION IN A REFERENCE POPULATION, HAS BEEN CONFIRMED THE DECISION THRESHOLD FOR PA DIAGNOSIS. Performed By: #### L IPID, BMP #### [facility] [place] Laboratory [address] [place] [address] Dr. Omid Bowden JACINTA 61 ng/mL Normal 9-82 [facility] Comment on above: Performed By: #### L IPID, BMP #### [facility] [place] Laboratory [address] [place] [address] Dr. Omid Bowden CBC AUTO DIFFon 08-14-2022 BASO # 0.0 103/ul Normal 0.0-0.1 [facility] Comment on above: Performed By: #### H GB #### [facility] [place] Laboratory [address] [place] [address] Dr. Omid Bowden Basophils/100 WBC (Bld) 0.4 % Normal 0.2-2.0 [facility] Comment on above: Performed By: #### H GB #### [facility] [place] Laboratory [address] [place] [address] Dr. Omid Bowden EO # 0.3 103/ul Normal 0.0-0.7 [facility] Comment on above: Performed By: #### H GB #### [facility] [place] Laboratory [address] [place] [address] Dr. Omid Bowden Eosinophils/100 WBC (Bld) 2.6 % Normal 0.9-7.0 [facility] Comment on above: Performed By: #### H GB #### [facility] [place] Laboratory [address] [place] [address] Dr. Omid Bowden Erythrocyte distribution width (RBC) [Ratio] 14.1 % Normal 11.0-15.0 [facility] Comment on above: Performed By: #### H GB #### [facility] [place] Laboratory [address] [place] [address] Dr. Omid Bowden Hematocrit (Bld) [Volume fraction] 35.5 % Critically low 36.0-48.0 [facility] Comment on above: Performed By: #### H GB #### [facility] [place] Laboratory [address] [place] [address] Dr. Omid Bowden Hemoglobin (Bld) [Mass/Vol] 11.6 g/dL Critically low 12.0-16.0 [facility] Comment on above: Performed By: #### H GB #### [facility] [place] Laboratory [address] [place] [address] Dr. Omid Bowden IG # 0.06 10e3/ul Critically high 0.00-0.03 [facility] Comment on above: Performed By: #### H GB #### [facility] [place] Laboratory [address] [place] [address] Dr. Omid Bowden IG % 0.6 % Critically high 0.0-0.5 [facility] Comment on above: Performed By: #### H GB #### [facility] [place] Laboratory [address] [place] [address] Dr. Omid Bowden LYMPH # 3.4 103/ul Normal 1.2-3.8 [facility] Comment on above: Performed By: #### H GB #### [facility] [place] Laboratory [address] [place] [address] Dr. Omid Bowden Lymphocytes/100 WBC (Bld) 35.5 % Normal 20.5-60.0 [facility] Comment on above: Performed By: #### H GB #### [facility] [place] Laboratory [address] [place] [address] Dr. Omid Bowden MANUAL DIFF REQ NO Normal [facility] Comment on above: Performed By: #### H GB #### [facility] [place] Laboratory [address] [place] [address] Dr. Omid Bowden MCH (RBC) [Entitic mass] 29.5 pg Normal 26.7-34.0 [facility] Comment on above: Performed By: #### H GB #### [facility] [place] Laboratory [address] [place] [address] [address] Omid Bowden MCHC (RBC) [Mass/Vol] 32.7 g/dL Normal 29.9-35.2 [facility] Comment on above: Performed By: #### H GB #### [facility] [place] Laboratory [address] [place] [address] [address] Omid Bowden MCV (RBC) [Entitic vol] 90.3 fL Normal 81.0-99.0 [facility] Comment on above: Performed By: #### H GB #### [facility] [place] Laboratory [address] [place] [address] [address] Omid Bowden MONO # 1.0 103/ul Critically high 0.3-0.8 [facility] Comment on above: Performed By: #### H GB #### [facility] [place] Laboratory [address] [place] [address] [address] Omid Bowden Monocytes/100 WBC (Bld) 10.5 % Normal 1.7-12.0 [facility] Comment on above: Performed By: #### H GB #### [facility] [place] Laboratory [address] [place] [address] Dr. Omid Bowden NEUT # 4.8 103/ul Normal 1.4-6.5 [facility] Comment on above: Performed By: #### H GB #### [facility] [place] Laboratory [address] [place] [address] [address] Omid Bowden Neutrophils/100 WBC (Bld) 50.4 % Normal 43.0-75.0 [facility] Comment on above: Performed By: #### H GB #### [facility] [place] Laboratory [address] [place] [address] [address] Omid Bowden Platelet mean volume (Bld) [Entitic vol] 9.1 fL Critically low 9.5-13.5 [facility] Comment on above: Performed By: #### H GB #### [facility] [place] Laboratory [address] [place] [address] [address] Omid Bowden PLT 276 103/ul Normal 150-450 [facility] [place] Comment on above: Performed By: #### H GB #### [facility] [place] Laboratory [address] [place] [address] [address] Omid Bowden RBC 3.93 106/ul Critically low 4.20-5.40 [facility] Comment on above: Performed By: #### H GB #### [facility] [place] Laboratory [address] [place] [address] [address] Omid Bowden WBC 9.5 103/ul Normal 4.0-11.0 [facility] Comment on above: Performed By: #### H GB #### [facility] [place] Laboratory [address] [place] [address] [address] Omid Bowden ER URINE PROFILEon 2 Bilirubin Ql (U) Negative Normal NEGATIVE [facility] Comment on above: Performed By: #### U MICRO, ERUR ####[facility] [place] [address] [place] [address]Dr. Omid Bowden Clarity (U) CLEAR Normal CLEAR [facility] Comment on above: Performed By: #### U MICRO, ERUR ####[facility] [place] [address] [place] [address]Dr. Omid Bowden Color (U) LT. YELLOW Normal YELLOW [facility] Comment on above: Performed By: #### U MICRO, ERUR ####[facility] [place] [address] [place] [address]Dr. Omid RIOSAHD A micrscopic examination will be performed if indicated. Normal [facility] [place] Comment on above: Performed By: #### U MICRO, ERUR ####[facility] [place] [address] [place] [address]Dr. Omid Bowden Glucose Ql (U) Negative Normal NEGATIVE [facility] Comment on above: Performed By: #### U MICRO, ERUR ####[facility] [place] [address] [place] [address]Dr. Omid Bowden Hemoglobin Ql (U) Negative Normal NEGATIVE [facility] Comment on above: Performed By: #### U MICRO, ERUR ####[facility] [place] [address] [place], [place] [address]Dr. Omid Bowden Ketones Ql (U) Negative Normal NEGATIVE [facility] Comment on above: Performed By: #### U MICRO, ERUR ####[facility] [place] [address] [place], [place] [address]Dr. Omid Bowden LEUKOCYTES TRACE Abnormal NEGATIVE [facility] Comment on above: Performed By: #### U MICRO, ERUR ####[facility] [place] [address] [place] [address]Dr. Omid Bowden Nitrite Ql (U) Negative Normal NEGATIVE [facility] Comment on above: Performed By: #### U MICRO, ERUR ####[facility] [place] [address] [place], [place] [address]Dr. Omid Bowden pH (U) 6.0 [pH] Normal 5-9 [facility] Comment on above: Performed By: #### U MICRO, ERUR ####[facility] [place] [address] [place], [place] [address]Dr. Omid Bowden SPEC GRAVITY 1.020 Normal 1.005-<=1.[address] [place] [address] Comment on above: Performed By: #### U MICRO, ERUR ####[facility] [place] [address] [place], [place] [address]Dr. Omid Bowden UA PROTEIN Negative Normal NEGATIVE/ TRACE [facility] [place] Comment on above: Performed By: #### U MICRO, ERUR ####[facility] [place] [address] [place], [place] [address]Dr. Omid Bowden UR MICRO IND INDICATED Normal [facility] [place] Comment on above: Performed By: #### U MICRO, ERUR ####[facility] [place] [address] [place], [place] [address]Dr. Omid Bowden Urobilinogen Qn (U) 0.2 {Jose'U}/dL Normal 0.2 - 1. 0 [facility] Comment on above: Performed By: #### U MICRO, ERUR ####[facility] [place] [address] [place], [place] [address]Dr. Omid Bowden OCC BLD IMMUNO SCREENon 12-0 OCCULT BLOOD Negative Normal NEGATIVE [facility] [place] Comment on above: Performed By: #### O BSCRN #### [facility] [place] Laboratory [address] [place] [address] [address] Omid Bowden PROF CHEM 8 (BAS METB)on Anion gap [Moles/Vol] 5.5 mmol/L Normal [facility] Comment on above: Performed By: #### L IPID, BMP #### [facility] [place] Laboratory [address] [place] [address] Dr. Omid Bowden Calcium [Mass/Vol] 8.6 mg/dL Normal 8.5-10.1 [facility] Comment on above: Performed By: #### L IPID, BMP #### [facility] [place] Laboratory [address] [place] [address] Dr. Omid Bowden Chloride [Moles/Vol] 103 mmol/L Normal 98-107 [facility] Comment on above: Performed By: #### L IPID, BMP #### [facility] [place] Laboratory [address] [place] [address] Dr. Omid Bowden CO2 [Moles/Vol] 31.8 mmol/L Normal 21.0-32.0 [facility] Comment on above: Performed By: #### L IPID, BMP #### [facility] [place] Laboratory [address] [place] [address] Dr. Omid Bowden Creatinine [Mass/Vol] 0.99 mg/dL Normal 0.55-1.02 [facility] [place] Comment on above: Performed By: #### L IPID, BMP #### [facility] [place] Laboratory [address] [place] [address] Dr. Omid Bowden EGFR-AF LIBERIAN >60 Normal >=60 [facility] Comment on above: Performed By: #### L IPID, BMP #### [facility] [place] Laboratory [address] [place] [address] Dr. Omid Bowden EGFR-NON AF LIBERIAN 54 mL/min/1.73m2 Critically low >=60 [facility] Comment on above: Performed By: #### L IPID, BMP #### [facility] [place] Laboratory [address] [place] [address] Dr. Omid Bowden Glucose [Mass/Vol] 112 mg/dL Critically high 74-[address] [facility] Comment on above: Performed By: #### L IPID, BMP #### [facility] [place] Laboratory [address] [place] [address] [address] Omid Bowden Potassium [Moles/Vol] 3.3 mmol/L Critically low 3.5-5.1 [facility] Comment on above: Performed By: #### L IPID, BMP #### [facility] [place] Laboratory [address] [place] [address] [address] Omid Bowden Sodium [Moles/Vol] 137 mmol/L Normal 136-145 [facility] Comment on above: Performed By: #### L IPID, BMP #### [facility] [place] Laboratory [address] [place] [address] [address] Omid Bowden Urea nitrogen [Mass/Vol] 20.0 mg/dL Critically high 7.0-18.0 [facility] Comment on above: Performed By: #### L IPID, BMP #### [facility] [place] Laboratory [address] [place] [address] Dr. Omid Bowden Urea nitrogen/Creatinine [Mass ratio] 20.2 mg/mg Normal [facility] Comment on above: Performed By: #### L IPID, BMP #### [facility] Laboratory [address] [place] [address] [address] Omid Bowden URINE MICROSCOPIC ONLYon BACTERIA TRACE Abnormal NONE SEEN [facility] Comment on above: Performed By: #### U MICRO, ERUR ####[facility] [place] [address] [place] [address]DrMedardo Bowden Bacteria identified Cx Nom (U) INDICATED Normal [facility] [place] Comment on above: Performed By: #### U MICRO, ERUR ####[facility] [address] [place] [address]DrMedardo Bowden CAST NONE SEEN Normal NONE SEEN [facility] Comment on above: Performed By: #### U MICRO, ERUR ####[facility] [address] [place] [address]DrMedardo Bowden Crystals LM Nom (Urine sed) NONE SEEN Normal NONE SEEN [facility] [place] Comment on above: Performed By: #### U MICRO, ERUR ####[facility] [place] [address] [place] [address]Dr. Omid Bowden Epithelial cells LM Ql (Urine sed) FEW Abnormal NONE SEEN /RARE [facility] [place] Comment on above: Performed By: #### U MICRO, ERUR ####[facility] [place] [address] [place] [id number]. Omid Bowden MUCOUS NONE SEEN Normal NONE SEEN [facility] [place] Comment on above: Performed By: #### U MICRO, ERUR ####[facility] [place] [address] [place] [id number]. Omid Bowden RBC 0-2 Normal 0-2 [facility] [place] Comment on above: Performed By: #### U MICRO, ERUR ####[facility] [place] [address] [place] [id number]. Omid Bowden WBC 20-50 Abnormal NONE SEEN [facility] [place] Comment on above: Performed By: #### U MICRO, ERUR ####[facility] [place] [address] [place] [id number]. Omid Bowden XR CHEST 1 Von 08-14-2022 [...] HILL BAILON Date: 2022-08-14 00:46 Normal [facility] [place] Covid-19 PCR (CVDTB)on SARS-CoV-2 (COVID-19) RNA MARII+probe Ql (Unsp spec) Not detected Normal NOT DETECTED [facility] [place] Comment on above: Result Comment: When diagnostic [...] for this test is supported by the Supervisor Net Making of Health and Human Service's declaration that [...] longer be used). Performed By: #### [facility] #### [facility] [place] Laboratory [address] [place] [address] Dr. Omid Bowden MG MAMM RT DIAG FU 022 MG MAMM RT DIAG FU Patient: HARMAN MCLEOD Exam Date: 08/08/2022 : 1940 Gender:F Ordering : DR MATEUS PERRY . Admission #: [id number] Family : Order #: [id number] CLICK HERE TO VIEW EXAM RADIOLOGY REPORT [...] uterine cancer at age 39. LOCATION: [facility] [place] BREAST COMPOSITION: Scattered areas fibroglandular density. FINDINGS: [...] George M.D. on 08/08/2022 at 15:28 Normal [facility] PROF CHEM 8 (BAS METB)on Anion gap [Moles/Vol] 9.3 mmol/L Normal [facility] Comment on above: Performed By: #### B MP #### [facility] [place] Laboratory [address] [address] [address] Omid Bowden Calcium [Mass/Vol] 8.1 mg/dL Critically low 8.5-10.1 [facility] Comment on above: Performed By: #### B MP #### [facility] [place] Laboratory [address] [place] [address] [address] Omid Bowden Chloride [Moles/Vol] 100 mmol/L Normal 98-107 [facility] Comment on above: Performed By: #### B MP #### [facility] [place] Laboratory [address] [place] [address] [address] Omid Bowden CO2 [Moles/Vol] 31.9 mmol/L Normal 21.0-32.0 [facility] Comment on above: Performed By: #### B MP #### [facility] [place] Laboratory [address] [address] [address] Omid Bowden Creatinine [Mass/Vol] 1.25 mg/dL Critically high 0.55-1.02 [facility] Comment on above: Performed By: #### B MP #### [facility] [place] Laboratory [address] [address] [address] Omid Bowden EGFR-AF LIBERIAN 50 mL/min/1.73m2 Critically low >=60 [facility] Comment on above: Performed By: #### B MP #### [facility] [place] Laboratory [address] [address] [address] Omid Bowden EGFR-NON AF LIBERIAN 41 mL/min/1.73m2 Critically low >=60 [facility] Comment on above: Performed By: #### B MP #### [facility] [place] Laboratory [address] [place], [place] [address] Dr. Omid Bowden Glucose [Mass/Vol] 215 mg/dL Critically high 74-[address] [facility] Comment on above: Performed By: #### B MP #### [facility] [place] Laboratory [address] [place], [place] [address] Dr. Omid Bowden Potassium [Moles/Vol] 3.2 mmol/L Critically low 3.5-5.1 [facility] Comment on above: Performed By: #### B MP #### [facility] [place] Laboratory [address] [address] [address] Omid Bowden Sodium [Moles/Vol] 138 mmol/L Normal 136-145 [facility] Comment on above: Performed By: #### B MP #### [facility] [place] Laboratory [address] [address] [address] Omid Bowden Urea nitrogen [Mass/Vol] 32.0 mg/dL Critically high 7.0-18.0 [facility] Comment on above: Performed By: #### B MP #### [facility] [place] Laboratory [address] [address] [address] Omid Bowden Urea nitrogen/Creatinine [Mass ratio] 25.6 mg/mg Normal [facility] Comment on above: Performed By: #### B MP #### [facility] [place] Laboratory [address] [address] [address] Omid Bowden US BREAST RIGHT LIMITEDon US BREAST RIGHT LIMITED Patient: HARMAN MCLEOD Exam Date: 08/08/2022 : 1940 Gender:F Ordering : DR MATEUS PERRY . Admission #: [id number] Family : Order #: [id number] CLICK HERE TO VIEW EXAM RADIOLOGY REPORT [...] uterine cancer at age 39. LOCATION: [facility] [place] BREAST COMPOSITION: Scattered areas fibroglandular density. FINDINGS: [...] M.D. on 08/08/2022 at 15:28 Normal [facility] [place] CALCIUMon 08-02-2022 Calcium [Mass/Vol] 8.9 mg/dL Normal 8.5-10.1 [facility] Comment on above: Performed By: #### H GB #### [facility] [place] Laboratory [address] [address] [address] Omid Bowden CREATININEon 08-02-2022 Creatinine [Mass/Vol] 1.19 mg/dL Critically high 0.55-1.02 [facility] Comment on above: Performed By: #### H GB #### [facility] [place] Laboratory [address] [address] [address] Omid Bowden EGFR-AF LIBERIAN 53 mL/min/1.73m2 Critically low >=60 [facility] Comment on above: Performed By: #### H GB #### [facility] [place] Laboratory [address] [address] [address] Omid Bowden EGFR-NON AF LIBERIAN 44 mL/min/1.73m2 Critically low >=60 [facility] Comment on above: Performed By: #### H GB #### [facility] [place] Laboratory [address] [place] [address] [address] Omid Bowden MG MAMM SCREEN 3D DAVID CADon 07-19-2022 MG MAMM SCREEN 3D DAVID CAD Patient: HARMAN MCLEOD Exam Date: 07/19/2022 : 1940 Gender:F Ordering : DR MATEUS PERRY . Admission #: [id number] Family : Order #: [id number] CLICK HERE TO VIEW EXAM RADIOLOGY REPORT [...] uterine cancer at age 39. LOCATION: [facility] [place] BREAST COMPOSITION: Scattered areas fibroglandular density. FINDINGS: [...] MD on 07/20/2022 at 07:33 Normal [facility] [place] XR DEXA BONE DENSITYon 07-19 XR DEXA [...] by: JUDSON BAUMAN Date: 2022-07-19 20:17 Normal [facility] CALCIUM, IONIC (POC)on 06-28 POC Ionized Calcium 1.21 mmol/L 1.15 - 1 .33 mmol/L [facility] CHLORIDE (POC)on 06-28-2022 Chloride [Moles/Vol] 103 mmol/L 98 - 10 7 mmol/L [facility] Creatinine W/GFR Point of Ca reon 06-28-2022 Creatinine [Mass/Vol] 0.93 mg/dL 0.51 - 1.19 mg/dL [facility] eGFR, POC mL/min/1.73 m2 [facility] Comment on above: Effective Jun [...] 1.56 mmol/L High 0.56 - 1.39 mmol/L [facility] No Panel Informationon 06-28 Interpretation and review of laboratory results Abnormal [facility] POC Glucose Fingerstickon Glucose [Mass/Vol] 135 mg/dL High 65 - 105 mg/dL [facility] Interpretation and review of laboratory results Abnormal [facility] POCT Glucoseon 06-28-2022 Glucose [Mass/Vol] 147 mg/dL High 74 - 100 mg/dL [facility] POCT urea (BUN)on 06-28-2022 Urea nitrogen [Mass/Vol] 20 mg/dL 8 - 26 mg/dL [facility] POTASSIUM (POC)on 06-28-2022 Potassium [Moles/Vol] 3.7 mmol/L 3.5 - 4.5 mmol/L [facility] SODIUM (POC)on 06-28-2022 Sodium [Moles/Vol] 141 mmol/L 138 - 146 mmol/L [facility] PROF CHEM 8 (BAS METB)on Anion gap [Moles/Vol] 9.0 mmol/L Normal [facility] Comment on above: Performed By: #### B MP ####[facility] [place] [address] [place] [address]Dr. Omid Bowden Calcium [Mass/Vol] 9.0 mg/dL Normal 8.5-10.1 [facility] Comment on above: Performed By: #### B MP ####[facility] [place] [address] [place], [place] [address]Dr. Omid Bowden Chloride [Moles/Vol] 98 mmol/L Normal 98-107 [facility] Comment on above: Performed By: #### B MP ####[facility] [place] Fac[address] [place], [place] [address]Dr. Omid Bowden CO2 [Moles/Vol] 33.2 mmol/L Critically high 21.0-32.0 [facility] Comment on above: Performed By: #### B MP ####[facility] [place] T[address] [place], [place] [address]Dr. Omid Bowden Creatinine [Mass/Vol] 1.32 mg/dL Critically high 0.55-1.02 [facility] Comment on above: Performed By: #### B MP ####[facility] [place] [address] [place], [place] [address]Dr. Omid Bowden EGFR-AF LIBERIAN 47 mL/min/1.73m2 Critically low >=60 [facility] [place] Comment on above: Performed By: #### B MP ####[facility] [place] [address] [place], [place] [address]Dr. Omid Bowden EGFR-NON AF LIBERIAN 39 mL/min/1.73m2 Critically low >=60 [facility] Comment on above: Performed By: #### B MP ####[facility] [place] [address] [place], [place] [address]Dr. Omid Bowden Glucose [Mass/Vol] 220 mg/dL Critically high 74-[address] [facility] Comment on above: Performed By: #### B MP ####[facility] [place] [address] [place] [address]Dr. Aixamegan Kal Potassium [Moles/Vol] 3.2 mmol/L Critically low 3.5-5.1 [facility] Comment on above: Performed By: #### B MP ####[facility] [place] [address] [place] [address]Dr. Aixamegan Kal Sodium [Moles/Vol] 137 mmol/L Normal 136-145 [facility] Comment on above: Performed By: #### B MP ####[facility] [place] [address]fs[address] [place] [address]Dr. Aixamegan Kal Urea nitrogen [Mass/Vol] 31.0 mg/dL Critically high 7.0-18.0 [facility] Comment on above: Performed By: #### B MP ####[facility] [place] [address] [place] [address]Dr. Omid Kal Urea nitrogen/Creatinine [Mass ratio] 23.5 mg/mg Normal [facility] Comment on above: Performed By: #### B MP ####[facility] [place] [address] [place], [place] [address]Dr. Omid Bowden ECHOCARDIO M/2D COMPLETEon 0 04-12-2022 ECHOCARDIO M/2D COMPLETE Patient: HARMAN MCLEOD Exam Date: 04/12/2022 : 1940 Gender:F Ordering : SONALI MCKINNEY [facility] Admission #: [id number] Family : Order #: [id number] CLICK HERE TO VIEW EXAM ECHOCARDIOGRAM REPORT [...] M.D. on 04/12/2022 at 19:15 Normal [facility] [place] PROF CHEM 8 (BAS METB)on Anion gap [Moles/Vol] 12.4 mmol/L Normal [facility] Comment on above: Performed By: #### B MP ####[facility] [place] [address] [place] [address]Dr. Omid Bowden Calcium [Mass/Vol] 9.1 mg/dL Normal 8.5-10.1 [facility] Comment on above: Performed By: #### B MP ####[facility] [place] [address] [place] [id number]. Omid Bowden Chloride [Moles/Vol] 100 mmol/L Normal 98-107 [facility] Comment on above: Performed By: #### B MP ####[facility] [place] P[address]ungjwe[address] [place] [id number]. Omid Bowden CO2 [Moles/Vol] 33.0 mmol/L Critically high 21.0-32.0 [facility] Comment on above: Performed By: #### B MP ####[facility] [place] [address]jwi[address] [place] [address]Dr. Omid Bowden Creatinine [Mass/Vol] 1.15 mg/dL Critically high 0.55-1.02 [facility] Comment on above: Performed By: #### B MP ####[facility] [place] [address] [place] [address]Dr. Aixamegan Kal EGFR-AF LIBERIAN 55 mL/min/1.73m2 Critically low >=60 [facility] Comment on above: Performed By: #### B MP ####[facility] [place] [address] [place] [address]Dr. Omid Kal EGFR-NON AF LIBERIAN 46 mL/min/1.73m2 Critically low >=60 [facility] Comment on above: Performed By: #### B MP ####[facility] [place] [address]wsute[address] [place], [place] [address]Dr. Omid Bowden Glucose [Mass/Vol] 167 mg/dL Critically high 74-106 [facility] Comment on above: Performed By: #### B MP ####[facility] [place] [address] [place], [place] [address]Dr. Aixamegan Kal Potassium [Moles/Vol] 3.4 mmol/L Critically low 3.5-5.1 [facility] Comment on above: Performed By: #### B MP ####[facility] [place] [address] [place], [place] [address]Dr. Omid Bowden Sodium [Moles/Vol] 142 mmol/L Normal 136-145 [facility] Comment on above: Performed By: #### B MP ####[facility] [place] [address] [place], [place] [address]Dr. Omid Bowden Urea nitrogen [Mass/Vol] 23.0 mg/dL Critically high 7.0-18.0 [facility] Comment on above: Performed By: #### B MP ####[facility] [place] [address] [place], [place] [address]Dr. Omid Bowden Urea nitrogen/Creatinine [Mass ratio] 20.0 mg/mg Normal [facility] Comment on above: Performed By: #### B MP ####[facility] [place] [address] [place] [address]Dr. Omid Bowden SYMPTOMATIC COVID-19 ANTIGEN on 03-16-2022 EUA Statement SEE BELOW Normal [facility] Comment on above: Result Comment: This test [...] Performed By: #### L IPID, BMP #### [facility] [place] Laboratory [address] [place] [address] Dr. Omid Bowden SARS-CoV-2 (COVID-19) RNA MARII+probe Ql (Unsp spec) Positive Critically abnormal NEGATIVE [facility] Comment on above: Performed By: #### L IPID, BMP #### [facility] [place] Laboratory [address] [place] [address] Dr. Omid Bowden HEMOGLOBINon 03-15-2022 Hemoglobin (Bld) [Mass/Vol] 12.3 g/dL Normal 12.0-16.0 [facility] Comment on above: Performed By: #### H GB #### [facility] [place] Laboratory [address] [place] [address] Dr. Omid Bowden BNPon 02-15-2022 Natriuretic peptide B (Bld) [Mass/Vol] 598.0 pg/mL Normal <=1,800.0 [facility] [place] Comment on above: Performed By: #### L IPID, BMP #### [facility] [place] Laboratory [address] [place] [address] Dr. Omid Bowden PROF CHEM 8 (BAS METB)on Anion gap [Moles/Vol] 11.9 mmol/L Normal [facility] Comment on above: Performed By: #### L IPID, BMP #### [facility] [place] Laboratory [address] [place] [address] Dr. Omid Bowden Calcium [Mass/Vol] 9.1 mg/dL Normal 8.5-10.1 [facility] Comment on above: Performed By: #### L IPID, BMP #### [facility] [place] Laboratory [address] [place] [address] Dr. Omid Bowden Chloride [Moles/Vol] 98 mmol/L Normal 98-107 [facility] Comment on above: Performed By: #### L IPID, BMP #### [facility] [place] Laboratory [address] [place] [address] Dr. Omid Bowden CO2 [Moles/Vol] 33.2 mmol/L Critically high 21.0-32.0 [facility] Comment on above: Performed By: #### L IPID, BMP #### [facility] [place] Laboratory [address] [place] [address] Dr. Omid Bowden Creatinine [Mass/Vol] 1.28 mg/dL Critically high 0.55-1.02 [facility] Comment on above: Performed By: #### L IPID, BMP #### [facility] [place] Laboratory [address] [place] [address] Dr. Omid Bowden EGFR-AF LIBERIAN 49 mL/min/1.73m2 Critically low >=60 [facility] Comment on above: Performed By: #### L IPID, BMP #### [facility] [place] Laboratory [address] [place] [address] Dr. Omid Bowden EGFR-NON AF LIBERIAN 40 mL/min/1.73m2 Critically low >=60 [facility] Comment on above: Performed By: #### L IPID, BMP #### [facility] [place] Laboratory [address] [place] [address] Dr. Omid Bowden Glucose [Mass/Vol] 182 mg/dL Critically high 74-[address] [facility] Comment on above: Performed By: #### L IPID, BMP #### [facility] [place] Laboratory [address] [address] [address] Omid Bowden Potassium [Moles/Vol] 3.1 mmol/L Critically low 3.5-5.1 [facility] Comment on above: Performed By: #### L IPID, BMP #### [facility] [place] Laboratory [address] [address] [address] Omid Bowden Sodium [Moles/Vol] 140 mmol/L Normal 136-145 [facility] Comment on above: Performed By: #### L IPID, BMP #### [facility] [place] Laboratory [address] [address] [address] Omid Bowden Urea nitrogen [Mass/Vol] 30.0 mg/dL Critically high 7.0-18.0 [facility] Comment on above: Performed By: #### L IPID, BMP #### [facility] Laboratory [address] [address] [address] Omid Bowden Urea nitrogen/Creatinine [Mass ratio] 23.4 mg/mg Normal [facility] Comment on above: Performed By: #### L IPID, BMP #### [facility] Laboratory [address] [address] [address] Omid Bowden XR CHEST 2 Von [...] by: ALFONSO GEORGE Date: 2022-02-09 11:53 Normal [facility] No Panel Informationon 12-13 [employer] POCT Glucoseon 12-13-2021 Glucose [Mass/Vol] 196 mg/dL High 74 - 100 mg/dL [facility] Interpretation and review of laboratory results Abnormal [facility] POTASSIUM (POC)on 12-13-2021 Potassium [Moles/Vol] 3.7 mmol/L 3.5 - 4.5 mmol/L [employer] TYPE AND SCREENon 12-10-2021 ABO/Rh Positive [employer] Arm Band Number BE [id number] [facility] Expiration Date 12/16/2021,2359 [facility] EKG 12 leadOrdered By: Dennis Garcia on 12-07-2021 Atrial Rate 66 BPM [employer] Work Phone: P [place] 67 degrees [employer] Work Phone: P-R Interval 126 ms [employer] Work Phone: Q-T Interval 466 ms [employer] Work Phone: QRS Duration 150 ms [employer] Work Phone: QTc Calculation (Bazett) 488 ms [employer] Work Phone: R [place] 32 degrees [employer] Work Phone: T [place] 161 degrees [employer] Work Phone: Ventricular Rate 66 BPM [employer] [facility] Work Phone: [employer] Work Phone: EKG 12 leadon 12-07-2021 Sinus rhythm with Premature atrial complexes Left bundle branch block Abnormal ECG When compared with ECG of 12-MAY-2021 12:39, T wave inversion now evident in Inferior leads [facility] Dennis Sorensen MD - 12/07/2021 Sinus rhythm with Premature atrial complexes Left bundle branch block Abnormal ECG When compared with ECG of 12-MAY-2021 12:39, T wave inversion now evident in Inferior leads [employer] Phone: CBC auto differentialon 11-10 Absolute Eos # 0.13 [facility] th Absolute Immature Granulocyte 0.12 [employer] Absolute Lymph # 3.18 [facility] alth Absolute Graves # 1.22 High [facility] Basophils (Bld) [#/Vol] 0.05 10*3/uL [facility] Basophils/100 WBC (Bld) 0 % 0 - 2 % [facility] Eosinophils/100 WBC (Bld) 1 % 1 - 4 % [facility] Hematocrit (Bld) [Volume fraction] 38.4 % 36.3 - 47.1 % [facility] Hemoglobin.gastrointes tinal spec 1 Ql (Stl) 12.2 g/dL 11.9 - 15.1 g/dL [facility] Immature granulocytes/100 WBC (Bld) 1 % High 0 [facility] Interpretation and review of laboratory results Abnormal [facility] Lymphocytes/100 WBC (Bld) 25 % 24 - 43 % [facility] MCH (RBC) [Entitic mass] 29.9 pg 25.2 - 33.5 pg [facility] MCHC (RBC) [Mass/Vol] 31.8 g/dL 28.4 - 34.8 g/dL [facility] MCV (RBC) [Entitic vol] 94.1 fL 82.6 - 102.9 fL [facility] Monocytes/100 WBC (Bld) 10 % 3 - 12 % [facility] NRBC Automated 0.0 0.0 per 100 WBC [facility] Platelet distribution width (Bld) [Ratio] 14.5 % High 11.8 - 14.4 % [facility] Platelet mean volume (Bld) [Entitic vol] 10.1 fL 8.1 - 13.5 fL [facility] Platelets (Bld) [#/Vol] 266 10*3/uL [facility] RBC (Bld) [#/Vol] 4.08 10*6/uL 3.95 - 5.1 1 m/uL [facility] RBC (Bld) [#/Vol] ANISOCYTOSIS PRESENT [facility] Segmented neutrophils/100 WBC (Bld) 63 % 36 - 65 % [facility] Segs [facility] [#/Vol] 12.6 10*3/uL High [facility] Comprehensive Metabolic Pane l w/ Reflex to MGon 12-06-2021 Albumin [Mass/Vol] 3.7 g/dL 3.5 - 5.2 g/dL [facility] Albumin/Globulin [Mass ratio] 1.1 {ratio} [facility] ALP (Bld) [Catalytic activity/Vol] 93 U/L 35 - 104 U/L [facility] ALT [Catalytic activity/Vol] 12 U/L 5 - 33 U/L [facility] Anion gap [Moles/Vol] 14 mmol/L 9 - 17 mmol/L [facility] AST [Catalytic activity/Vol] 12 U/L <32 [facility] Bilirubin [Mass/Vol] 0.25 mg/dL Low 0.3 - 1 .2 mg/dL [facility] Calcium [Mass/Vol] 9.1 mg/dL 8.6 - 10. 4 mg/dL [facility] Chloride [Moles/Vol] 95 mmol/L Low 98 - 10 7 mmol/L [facility] CO2 [Moles/Vol] 30 mmol/L 20 - 31 mmol/L [facility] Creatinine [Mass/Vol] 1.07 mg/dL High 0.50 - 0.90 mg/dL [facility] Free PSA/Total PSA [Mass fraction] 7.2 g/dL 6.4 - 8.3 g/dL [facility] GFR 60 mL/min Low >60 [facility] GFR Non- 49 mL/min Low >60 [facility] GFR/1.73 sq M.predicted MDRD (S/P/Bld) [Vol rate/Area] [facility] Comment on above: Average GFR for 70 o r more years old: 75 mL/min/1.73sq m Chronic Kidney Disease: <60 mL/min/1.73sq m Kidney failure: <15 mL/min/1.73sq m eGFR calculated using average adult body mass. Additional eGFR calculator available at: http://www.[employer].WiiiWaaa/multiple_crcl_2011.htm Glucose [Mass/Vol] 188 mg/dL High 70 - 99 mg/dL [facility] Interpretation and review of laboratory results Abnormal [facility] Potassium [Moles/Vol] 3.3 mmol/L Low 3.7 - 5.3 mmol/L [facility] Sodium [Moles/Vol] 139 mmol/L 135 - 144 mmol/L [facility] Urea nitrogen (BldV) [Mass/Vol] 22 mg/dL 8 - 23 mg/dL [facility] Magnesiumon 12-06-2021 Magnesium [Mass/Vol] 1.6 mg/dL 1.6 - 2 .6 mg/dL [facility] No Panel Informationon 12-06 No acute process. [facility] EXAMINATION: TWO XRAY VIEWS OF THE [...] The osseous structures are without acute process. [facility] Kael Fremean MD - 12/06/2021 EXAMINATION: TWO XRAY VIEWS [...] without acute process. IMPRESSION: No acute process. [employer] Phone: Radiology Study observation (narrative) [employer] Phone: No Panel InformationOrdered By: Kael Freeman on 12-06-2021 [employer] Phone: Creatinine W/GFR Point of Ca reOrdered By: Kin bAarca on 06-15-2021 Creatinine [Mass/Vol] 0.89 mg/dL 0.51 - 1.19 mg/dL [employer] Phone: GFR Non- >60 >60 mL/min [employer] Phone: GFR/1.73 sq M.predicted MDRD (S/P/Bld) [Vol rate/Area] mL/min/{1.73_m2} >60 mL/min [employer] Phone: GFR/1.73 sq M.predicted MDRD (S/P/Bld) [Vol rate/Area] [employer] Phone: Comment on above: Average GFR for 70 o r more years old: 75 mL/min/1.73sq m Chronic Kidney Disease: <60 mL/min/1.73sq m Kidney failure: <15 mL/min/1.73sq m eGFR calculated using average adult body mass. Additional eGFR calculator available at: http://www.[employer]/multiple_crcl_2012.htm No Panel InformationOrdered By: Kin Abarca on 06-15-2021 [employer] Phone: POC Glucose FingerstickOrder ed By: Kin Abarca on 06-15-2021 Glucose [Mass/Vol] 163 mg/dL High 65 - 105 mg/dL [employer] Phone: Interpretation and review of laboratory results Abnormal [employer] Phone: [employer] Phone: POCT GlucoseOrdered By: Kin Abarca on 06-15-2021 Glucose [Mass/Vol] 186 mg/dL High 74 - 100 mg/dL [employer] Phone: Interpretation and review of laboratory results Abnormal [employer] Phone: POTASSIUM (POC)Ordered By: Yuriy Abarca on 06-15-2021 Potassium [Moles/Vol] 4.5 mmol/L 3.5 - 4.5 mmol/L [employer] Phone: EKG 12 leadOrdered By: Antoni Burks on 05-13-2021 Atrial Rate 67 BPM [employer] Phone: P [place] 58 degrees [employer] Phone: P-R Interval 130 ms [employer] Phone: Q-T Interval 504 ms [employer] Phone: QRS Duration 144 ms [employer] Phone: QTc Calculation (Bazett) 532 ms [employer] Phone: R [place] 20 degrees [employer] Phone: T [place] 117 degrees [employer] Phone: Ventricular Rate 67 BPM [employer] Phone: Sinus rhythm with Premature atrial complexes Left bundle branch block Abnormal ECG No previous ECGs available [employer] Phone: Virgilio, Mhpn Incoming E kg Results From [employer] - 05/13/2021 1:30 PM EDT Sinus rhythm with Premature atrial complexes Left bundle branch block Abnormal ECG No previous ECGs available [employer] Phone: [employer] Phone: Basic Metabolic Panel w/ Ref alexis to MGOrdered By: Latonia Burks on 05-12-2021 Anion gap [Moles/Vol] 13 mmol/L 9 - 17 mmol/L [employer] Phone: Calcium [Mass/Vol] 9.4 mg/dL 8.6 - 10. 4 mg/dL [employer] Phone: Chloride [Moles/Vol] 102 mmol/L 98 - 10 7 mmol/L [employer] Phone: CO2 [Moles/Vol] 28 mmol/L 20 - 31 mmol/L [employer] Phone: Creatinine [Mass/Vol] 0.94 mg/dL High 0.50 - 0.90 mg/dL [employer] Phone: GFR >60 >60 mL/min [employer] Phone: GFR Non- 58 mL/min Low >60 [employer] Phone: GFR/1.73 sq M.predicted MDRD (S/P/Bld) [Vol rate/Area] [employer] Phone: Comment on above: Average GFR for 70 o r more years old: 75 mL/min/1.73sq m Chronic Kidney Disease: <60 mL/min/1.73sq m Kidney failure: <15 mL/min/1.73sq m eGFR calculated using average adult body mass. Additional eGFR calculator available at: http://www.[employer]/multiple_crcl_2012.htm GFR/1.73 sq M.predicted MDRD (S/P/Bld) [Vol rate/Area] NOT REPORTED [employer] Phone: Glucose [Mass/Vol] 119 mg/dL High 70 - 99 mg/dL [employer] Phone: Interpretation and review of laboratory results Abnormal [employer] Phone: Potassium [Moles/Vol] 4.0 mmol/L 3.7 - 5.3 mmol/L [employer] Phone: Sodium [Moles/Vol] 143 mmol/L 135 - 144 mmol/L [employer] Phone: Urea nitrogen (BldV) [Mass/Vol] 18 mg/dL 8 - 23 mg/dL [employer] Phone: Urea nitrogen/Creatinine (Bld) [Mass ratio] NOT REPORTED [employer] Phone: [employer] Phone: CBC auto differentialOrdered By: Latonia Burks on 05-12-2021 Absolute Eos # 0.26 [facility] Work Phone: Absolute Immature Granulocyte 0.04 [employer] Work Phone: Absolute Lymph # 3.26 [facility] Work Phone: Absolute Graves # 0.84 [facility] Work Phone: Basophils (Bld) [#/Vol] 0.05 10*3/uL [employer] Work Phone: Basophils/100 WBC (Bld) 1 % 0 - 2 % [employer] Work Phone: Differential Type NOT REPORTED [employer] Phone: Eosinophils/100 WBC (Bld) 3 % 1 - 4 % [employer] Phone: Hematocrit (Bld) [Volume fraction] 36.9 % 36.3 - 47.1 % [employer] Phone: Hemoglobin.gastrointes tinal spec 1 Ql (Stl) 11.2 g/dL Low 11.9 - 15.1 g/dL [employer] Phone: Immature granulocytes/100 WBC (Bld) 0 % 0 [employer] Phone: Interpretation and review of laboratory results Abnormal [employer] Phone: Lymphocytes/100 WBC (Bld) 32 % 24 - 43 % [employer] Phone: MCH (RBC) [Entitic mass] 28.3 pg 25.2 - 33.5 pg [employer] Phone: MCHC (RBC) [Mass/Vol] 30.4 g/dL 28.4 - 34.8 g/dL [employer] Phone: MCV (RBC) [Entitic vol] 93.2 fL 82.6 - 102.9 fL [employer] Phone: Monocytes/100 WBC (Bld) 8 % 3 - 12 % [employer] Phone: NRBC Automated 0.0 0.0 per 100 WBC [employer] Phone: Platelet distribution width (Bld) [Ratio] 13.8 % 11.8 - 14.4 % [employer] Phone: Platelet Estimate NOT REPORTED [employer] Phone: Platelet mean volume (Bld) [Entitic vol] 9.5 fL 8.1 - 13.5 fL [employer] Phone: Platelets (Bld) [#/Vol] 310 10*3/uL [employer] Phone: RBC (Bld) [#/Vol] 3.96 10*6/uL 3.95 - 5.1 1 m/uL [employer] Work Phone: RBC (Bld) [#/Vol] NOT REPORTED [employer] Phone: Segmented neutrophils/100 WBC (Bld) 56 % 36 - 65 % [employer] Work Phone: Segs Absolute 5.70 [employer] Work Phone: WBC (Bld) [#/Vol] 10.2 10*3/uL [employer] Work Phone: WBC (Bld) [#/Vol] NOT REPORTED [employer] Phone: [employer] Phone: XR CHEST (2 VW)Ordered By: Joanie Burks on 05-12-2021 Senescent changes compatible with the age of the patient. No evidence of acute cardiopulmonary process. [employer] Phone: EXAMINATION: TWO XRA Y VIEWS OF [...] spine and visualized portions of the shoulders. [employer] Phone: Virgilio, Mhpn Incoming Radiant Results From [employer] - 05/12/2021 2:48 PM EDT EXAMINATION: TWO [...] patient. No evidence of acute cardiopulmonary process. [employer] Phone: [employer] Phone: Cardiovascular Lab Reporton 08-21-2020 Cardiovascular Lab Report [facility] Patient Name: [place] MR #: [id number] Department of Physician: Jose Maria Keyes M.D. Division of Service Date: 08/20/2020 Cardiology Birthdate: 1940 Adult Cardiovascular Room #: [place] [address] Cardiovascular Laboratory Report INDICATION: The patient is [...] signed informed consent. 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 The procedure was performed under conscious sedation. A transesophageal echocardiogram was performed by Dr. Marisol Khoury at baseline. Please refer to his dictation for details. The appendage measured a maximum of 16 mm in terms of ostial width. Using ultrasound guidance and micropuncture technique, access was obtained in the right common femoral vein and a 6-Macedonian x 11 cm sheath was placed preclosure where the 6-Macedonian ProGlide device was performed followed by advancement [...] was exchanged over that wire to the 14-Macedonian Watchman access sheath, which was advanced to the left atrial cavity with no issues. The 6-Macedonian angled pigtail catheter was advanced over the [...] Trans: (more content not included)... Normal The [facility] TYPE AND CROSSMATCHon 2019 ABO INTERPRETATION A Normal [facility] Comment on above: Performed By: #### [id number] #### [facility] [address] [place] [address], [facility] RH INTERPRETATION Positive Normal The [facility] Comment on above: Performed By: #### [id number] #### [facility] [address] [place] [address], [facility] Vital Signs Date Time Vital Sign Value Performing Clinician Facility 08-29-2024 10:[id number] Body height 152.4 cm Peyman Hensley DPM Work Phone: [facility] 08-29-2024 10:01-0500 Body mass index (BMI) [Ratio] 28.32 kg/m2 Peyman Hensley DPM Work Phone: [facility] 08-29-2024 10:01-0500 Body weight 65.77 kg Peyman Hensley DPM Work Phone: [facility] 08-29-2024 10:01-0500 Respiratory rate 16 /min Peyman PHELANM Work Phone: [facility] 06-20-2024 10:140400 Body height 152.4 cm Peyman Hensley DPM Work Phone: [facility] 06-20-2024 10:140400 Body mass index (BMI) [Ratio] 28.32 kg/m2 Peyman Hensley DPM Work Phone: [facility] 06-20-2024 10:140400 Body weight 65.77 kg Peyman Hensley DPM Work Phone: [facility] 06-20-2024 10:140400 Respiratory rate 18 /min Peyman Hensley DPM Work Phone: [facility] 05-01-2024 10:18-0400 Body height 149.86 cm MD Mateus Perry Work Phone: [facility] 05-01-2024 10:18-0400 Body mass index (BMI) [Ratio] 30.2 kg/m2 MD Mateus Perry Work Phone: [facility] 05-01-2024 10:18-0400 Body temperature 97.8 [degF] MD Mateus Prery Work Phone: [facility] 05-01-2024 10:18-0400 Body weight 68.03 kg MD Mateus Perry Work Phone: [facility] 05-01-2024 10:18-0400 Diastolic blood pressure 72 mm[Hg] MD Mateus Perry Work Phone: [facility] 05-01-2024 10:18-0400 Heart rate 80 /min MD Mateus Perry Work Phone: [facility] 05-01-2024 10:18-0400 Respiratory rate 16 /min MD Mateus Perry Work Phone: [facility] 05-01-2024 10:18-0400 SaO2% (BldA) [Mass fraction] 98 % MD Mateus Perry Work Phone: [facility] 05-01-2024 10:18-0400 Systolic blood pressure 118 mm[Hg] MD Mateus Perry Work Phone: [facility] 04-24-2024 11:13-0400 Body height 149.86 cm MD Mateus Perry Work Phone: [facility] 04-24-2024 11:13-0400 Body mass index (BMI) [Ratio] 36.3 kg/m2 MD Mateus Perry Work Phone: [facility] 04-24-2024 11:13-0400 Body weight 81.64 kg MD Mateus Perry Work Phone: [facility] 04-24-2024 11:06-0400 Body temperature 98.8 [degF] MD Mateus Perry Work Phone: [facility] 04-24-2024 11:06-0400 Diastolic blood pressure 75 mm[Hg] MD Mateus Perry Work Phone: [facility] 04-24-2024 11:06-0400 Heart rate 97 /min MD Mateus Perry Work Phone: [facility] 04-24-2024 11:06-0400 Respiratory rate 20 /min MD Mateus Perry Work Phone: [facility] 04-24-2024 11:06-0400 Systolic blood pressure 118 mm[Hg] MD Mateus Perry Work Phone: [facility] 04-10-2024 10:30-0400 Body height 149.86 cm MD Mateus Perry Work Phone: [facility] 04-10-2024 10:30-0400 Body mass index (BMI) [Ratio] 36.3 kg/m2 MD Mateus Perry Work Phone: [facility] 04-10-2024 10:30-0400 Body weight 81.64 kg MD Mateus Perry Work Phone: [facility] 03-26-2024 09:51-0400 Body height 149.86 cm MD Mateus Perry Work Phone: [facility] 03-26-2024 09:51-0400 Body mass index (BMI) [Ratio] 36.3 kg/m2 MD Mateus Perry Work Phone: [facility] 03-26-2024 09:51-0400 Body weight 81.64 kg MD Mateus Perry Work Phone: [facility] 03-26-2024 09:36-0400 Body temperature 97.3 [degF] MD Mateus Perry Work Phone: [facility] 03-26-2024 09:36-0400 Diastolic blood pressure 61 mm[Hg] MD Mateus Perry Work Phone: [facility] 03-26-2024 09:36-0400 Heart rate 86 /min MD Mateus Perry Work Phone: [facility] 03-26-2024 09:36-0400 Respiratory rate 18 /min MD Mateus Perry Work Phone: [facility] 03-26-2024 09:36-0400 Systolic blood pressure 128 mm[Hg] MD Mateus Perry Work Phone: [facility] 06-20-2023 15:29-0400 Body height 154.9 cm Winnie Ramirez PA-C Work Phone: [facility] 06-20-2023 15:29-0400 Body temperature 97.39 [degF] Winnie Ramirez PA-C Work Phone: [facility] 06-20-2023 15:29-0400 Body weight 84.64 kg Winnie Ramirez PA-C Work Phone: [facility] 06-20-2023 15:29-0400 Diastolic blood pressure 55 mm[Hg] Winnie Ramirez PA-C Work Phone: [facility] 06-20-2023 15:29-0400 Heart rate 72 /min Winnie Ramirez PA-C Work Phone: [facility] 06-20-2023 15:29-0400 Respiratory rate 16 /min Winnie Guzmán PA-C Work Phone: [facility] 06-20-2023 15:29-0400 SaO2% (BldA) [Mass fraction] 96 % Winnie Guzmán PA-C Work Phone: [facility] 06-20-2023 15:29-0400 Systolic blood pressure 138 mm[Hg] Winnie Guzmán PA-C Work Phone: [facility] 06-01-2023 08:45-0400 Body height 154.94 cm Christiano Gonzales Other Cou[employer] Other 06-01-2023 08:45-0400 Body mass index (BMI) [Ratio] 34.57 kg/m2 Christiano Gonzales Other [facility] Other 06-01-2023 08:45-0400 Body temperature 97.8 [degF] Christiano Gonzales Other [facility] Other 06-01-2023 08:45-0400 Body weight 83.01 kg Christiano Gonzales Other Couple Other 06-01-2023 08:45-0400 Diastolic blood pressure 72 mm[Hg] Christiano Gonzales Other Cou[facility] Other 06-01-2023 08:45-0400 SaO2% (BldA) [Mass fraction] 93 % Christiano Gonzales Other Cou[employer] Other 06-01-2023 08:45-0400 Systolic blood pressure 130 mm[Hg] Christiano Gonzales Other Cou[facility] Other 03-09-2023 08:45-0400 Body height 154.94 cm Millie Storm Other Couple Other 03-09-2023 08:45-0400 Body mass index (BMI) [Ratio] 34.57 kg/m2 Millie Storm Other [facility] Other 03-09-2023 08:45-0400 Body temperature 96.8 [degF] Millie Storm Other [facility] Other 03-09-2023 08:45-0400 Body weight 83.01 kg Millie Storm Other Cou[employer] Other 03-09-2023 08:45-0400 Diastolic blood pressure 56 mm[Hg] Millie Storm Other [facility] Other 03-09-2023 08:45-0400 SaO2% (BldA) [Mass fraction] 97 % Millie Storm Other [facility] Other 03-09-2023 08:45-0400 Systolic blood pressure 118 mm[Hg] Millie Storm Other [facility] Other 02-14-2023 10:19-0400 Body height 154.9 cm Wallace Stone MD Work Phone: [facility] 02-14-2023 10:19-0400 Body temperature 97.39 [degF] Wallace Stone MD Work Phone: [facility] 02-14-2023 10:19-0400 Body weight 84.46 kg Wallace Stone MD Work Phone: [facility] 02-14-2023 10:19-0400 Diastolic blood pressure 90 mm[Hg] Wallace Stone MD Work Phone: [facility] 02-14-2023 10:19-0400 Heart rate 102 /min Wallace Stone MD Work Phone: [facility] 02-14-2023 10:19-0400 Respiratory rate 16 /min Wallace Stone MD Work Phone: [facility] 02-14-2023 10:19-0400 SaO2% (BldA) [Mass fraction] 95 % Wallace Stone MD Work Phone: [facility] 02-14-2023 10:19-0400 Systolic blood pressure 151 mm[Hg] Wallace Stone MD Work Phone: [facility] 12-07-2022 14:00-0400 Body height 154.94 cm Millie Faganvane Other Couple Other 12-07-2022 14:00-0400 Body mass index (BMI) [Ratio] 35.71 kg/m2 Millie Faganvane Other [facility] Other 12-07-2022 14:00-0400 Body temperature 97.6 [degF] Millie Faganvane Other [facility] Other 12-07-2022 14:00-0400 Body weight 85.73 kg Millie Faganvane Other Couple Other 12-07-2022 14:00-0400 Diastolic blood pressure 68 mm[Hg] Millie Faganvane Other [facility] Other 12-07-2022 14:00-0400 SaO2% (BldA) [Mass fraction] 93 % Millie Rutvane Other Couple Other 12-07-2022 14:00-0400 Systolic blood pressure 116 mm[Hg] Millie Storm Other Cou[facility] Other 11-29-2022 11:53-0400 Diastolic blood pressure 54 mm[Hg] MD Mateus Perry Work Phone: [facility] 11-29-2022 11:53-0400 Heart rate 67 /min MD Mateus Perry Work Phone: [facility] 11-29-2022 11:53-0400 Respiratory rate 16 /min MD Mateus Perry Work Phone: [facility] 11-29-2022 11:53-0400 SaO2% (BldA) [Mass fraction] 94 % MD Mateus Perry Work Phone: [facility] 11-29-2022 11:53-0400 Systolic blood pressure 141 mm[Hg] MD Mateus Perry Work Phone: [facility] 11-29-2022 09:13-0400 Body height 154.94 cm MD Mateus Perry Work Phone: [facility] 11-29-2022 09:13-0400 Body weight 81.64 kg MD Mateus Perry Work Phone: [facility] 11-23-2022 11:00-0400 Body height 154.94 cm Christiano Gonzales Other Couple Other 11-23-2022 11:00-0400 Body temperature 97.8 [degF] Christiano Gonzales Other [facility] Other 11-23-2022 11:00-0400 Diastolic blood pressure 62 mm[Hg] Christiano Gonzales Other [facility] Other 11-23-2022 11:00-0400 SaO2% (BldA) [Mass fraction] 96 % Christiano Gonzales Other [employer] [facility] [employer] Other 11-23-2022 11:00-0400 Systolic blood pressure 110 mm[Hg] Christiano Gonzales Other [facility] [employer] Other 11-09-2022 13:44-0500 Body height 154.9 cm Wallace Stone MD Work Phone: [facility] 11-09-2022 13:44-0500 Body temperature 97.11 [degF] Wallace Stone MD Work Phone: [facility] 11-09-2022 13:44-0500 Body weight 84.73 kg Wallace Stone MD Work Phone: [facility] 11-09-2022 13:44-0500 Diastolic blood pressure 72 mm[Hg] Wallace Stone MD Work Phone: [facility] 11-09-2022 13:44-0500 Heart rate 66 /min Wallace Stone MD Work Phone: [facility] 11-09-2022 13:44-0500 Respiratory rate 18 /min Wallace Stone MD Work Phone: [facility] 11-09-2022 13:44-0500 SaO2% (BldA) [Mass fraction] 100 % Wallace Stone MD Work Phone: [facility] 11-09-2022 13:44-0500 Systolic blood pressure 142 mm[Hg] Wallace Stone MD Work Phone: [facility] 09-22-2022 11:24-0500 Body height 154.9 cm Wallace Stone MD Work Phone: [facility] 09-22-2022 11:24-0500 Body temperature 97.81 [degF] Wallace Stone MD Work Phone: [facility] 09-22-2022 11:24-0500 Body weight 84.82 kg Wallace Stone MD Work Phone: [facility] 09-22-2022 11:24-0500 Diastolic blood pressure 64 mm[Hg] Wallace Stone MD Work Phone: [facility] 09-22-2022 11:24-0500 Heart rate 70 /min Wallace Stone MD Work Phone: [facility] 09-22-2022 11:24-0500 Respiratory rate 16 /min Wallace Stone MD Work Phone: [facility] 09-22-2022 11:24-0500 SaO2% (BldA) [Mass fraction] 94 % Wallace Stone MD Work Phone: [facility] 09-22-2022 11:24-0500 Systolic blood pressure 137 mm[Hg] Wallace Stone MD Work Phone: [facility] 09-09-2022 15:06-0500 Blood Pressure Location Iliana GAGNON [facility] 09-09-2022 15:06-0500 Diastolic blood pressure 68 mm[Hg] Iliana GAGNON [facility] 09-09-2022 15:06-0500 Heart rate 68 /min Iliana GAGNON [facility] 09-09-2022 15:06-0500 Respiratory rate 16 /min Iliana GAGNON [facility] 09-09-2022 15:06-0500 Systolic blood pressure 130 mm[Hg] Iliana GAGNON [facility] 06-28-2022 12:00-0400 SaO2% (BldA) [Mass fraction] 95 % Emma Plunkett MD Work Phone: [facility] 06-28-2022 11:50-0400 Body temperature 97.3 [degF] Emma Plunkett MD Work Phone: [facility] 06-28-2022 11:50-0400 Diastolic blood pressure 50 mm[Hg] Emma Plunkett MD Work Phone: [facility] 06-28-2022 11:50-0400 Heart rate 69 /min Emma Plunkett MD Work Phone: [facility] 06-28-2022 11:50-0400 Respiratory rate 16 /min Emma Plunkett MD Work Phone: [facility] 06-28-2022 11:50-0400 Systolic blood pressure 115 mm[Hg] Emma Plunkett MD Work Phone: [facility] 06-28-2022 07:36-0400 Body height 154.9 cm Emma Plunkett MD Work Phone: [facility] 06-28-2022 07:36-0400 Body mass index (BMI) [Ratio] 34.58 kg/m2 Emma Plunkett MD Work Phone: [facility] 06-28-2022 07:36-0400 Body weight 83.01 kg Emma Plunkett MD Work Phone: [facility] 12-13-2021 15:45-0400 Body temperature 97 [degF] Emma Plunkett MD Work Phone: [facility] [employer] 12-13-2021 15:45-0400 Diastolic blood pressure 96 mm[Hg] Emma Plunkett MD Work Phone: [facility] [employer] 12-13-2021 15:45-0400 Heart rate 65 /min Emma Plunkett MD Work Phone: [facility] [employer] 12-13-2021 15:45-0400 Respiratory rate 14 /min Emma Plunkett MD Work Phone: [facility] 12-13-2021 15:45-0400 SaO2% (BldA) [Mass fraction] 94 % Emma Plunkett MD Work Phone: [facility] 12-13-2021 15:45-0400 Systolic blood pressure 113 mm[Hg] Emma Plunkett MD Work Phone: [facility] 12-13-2021 09:46-0400 Body height 154.9 cm Emma Plunkett MD Work Phone: [facility] 12-13-2021 09:46-0400 Body mass index (BMI) [Ratio] 36.09 kg/m2 Emma Plunkett MD Work Phone: [facility] 12-13-2021 09:46-0400 Body weight 86.64 kg Emma Plunkett MD Work Phone: [facility] 12-06-2021 14:46-0400 Body height 154.[address] 12-06-2021 14:46-0400 Body mass index (BMI) [Ratio] 36.09 kg/m2 [address] 12-06-2021 14:46-0400 Body temperature 96.4 [degF] [address] 12-06-2021 14:46-0400 Body weight 86.[address] 12-06-2021 14:46-0400 Diastolic blood pressure 67 mm[Hg] [address] 12-06-2021 14:46-0400 Heart rate 62 /min [address] 12-06-2021 14:46-0400 Respiratory rate 20 /min [address] 12-06-2021 14:46-0400 SaO2% (BldA) [Mass fraction] 97 % [address] 12-06-2021 14:46-0400 Systolic blood pressure 153 mm[Hg] [address] 06-15-2021 10:14-0400 Body temperature 97.81 [degF] Kin Abarca MD Work Phone: [employer] Work Phone: 06-15-2021 10:14-0400 Diastolic blood pressure 58 mm[Hg] Kin Abarca MD Work Phone: [employer] Work Phone: 06-15-2021 10:14-0400 Heart rate 61 /min Kin Abarca MD Work Phone: [employer] Work Phone: 06-15-2021 10:14-0400 Respiratory rate 14 /min Kin Abarca MD Work Phone: [employer] Work Phone: 06-15-2021 10:14-0400 SaO2% (BldA) [Mass fraction] 96 % Kin Abarca MD Work Phone: [employer] Work Phone: 06-15-2021 10:14-0400 Systolic blood pressure 113 mm[Hg] Kin Abarca MD Work Phone: [employer] Work Phone: 06-15-2021 08:24-0400 Body height 154.9 cm Kin Abarca MD Work Phone: [employer] Work Phone: 06-15-2021 08:24-0400 Body mass index (BMI) [Ratio] 34.96 kg/m2 Kin Abarca MD Work Phone: [employer] Work Phone: 06-15-2021 08:24-0400 Body weight 83.92 kg Kin Abarca MD Work Phone: [employer] Work Phone: 05-12-2021 12:53-0400 Body height 154.9 cm [facility] 1 [employer] Work Phone: 05-12-2021 12:53-0400 Body mass index (BMI) [Ratio] 35.52 kg/m2 [facility] 1 [employer] Phone: 05-12-2021 12:53-0400 Body temperature 96.8 [degF] [facility] [employer] Phone: 05-12-2021 12:53-0400 Body weight 85.28 kg [facility] 1 [employer] Phone: 05-12-2021 12:53-0400 Diastolic blood pressure 66 mm[Hg] [facility] [employer] Phone: 05-12-2021 12:53-0400 Heart rate 57 /min [facility] 1 [employer] Phone: 05-12-2021 12:53-0400 Respiratory rate 18 /min [facility] 1 [employer] Phone: 05-12-2021 12:53-0400 SaO2% (BldA) [Mass fraction] 96 % [facility] 1 [employer] Phone: 05-12-2021 12:53-0400 Systolic blood pressure 150 mm[Hg] [facility] 1 [employer] Phone: Encounters Encounter Date Encounter Type Care Provider Facility Start: 09-12-2024 ambulatory [facility] Start: 09-12-2024 ambulatory [facility] Start: 09-02-2024 ambulatory [facility] Start: 08-29-2024 End: 08-29-2024 BamPictale Hensley DPM Work Phone: [facility] Start: 08-29-2024 End: 08-29-2024 HomeroPictale Hensley DPM Work Phone: [facility] Start: 08-29-2024 Encounter for preprocedural cardiovascular examination [facility] Start: 08-29-2024 End: 08-29-2024 Office outpatient visit [...] Not Available Start: 08-27-2024 End: 08-27-2024 ambulatory [facility] Start: 08-12-2024 ambulatory [facility] Start: 08-12-2024 End: 08-12-2024 ambulatory [facility] Start: 07-17-2024 End: 07-17-2024 ambulatory [facility] Start: 07-10-2024 ambulatory [facility] Start: 07-10-2024 End: 07-10-2024 ambulatory [facility] Start: 07-02-2024 End: 07-02-2024 ambulatory [facility] Start: 06-20-2024 End: 06-20-2024 Bamboo flowsheet Peyman [...] fat layer exposed ([facility]/HCC); Diabetes mellitus due to underlying condition with diabetic polyneuropathy, 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 assisted insulin use ([facility]/HCC); Pain due to onychomycosis of toenails of both feet Start: 06-12-2024 End: 06-12-2024 ambulatory [facility] Start: 05-27-2024 End: 05-27-2024 ambulatory CHERYL FARIA [facility] Start: 05-01-2024 End: 05-01-2024 ambulatory MD Mateus Perry Work Phone: [facility] Work Phone: Start: 05-01-2024 End: 05-01-2024 Patient encounter procedure MD Mateus Perry Work Phone: [facility] Work Phone: Start: 04-24-2024 End: 04-24-2024 ambulatory MD Mateus Perry Work Phone: [facility] Work Phone: Start: 04-24-2024 End: 04-24-2024 Discharged Recurring MD Mateus Perry Work Phone: [facility] [place] Work Phone: Start: 04-09-2024 End: 04-09-2024 Patient encounter procedure MD Mateus Perry Work Phone: [facility] [place] Work Phone: Start: 04-09-2024 End: 04-09-2024 ambulatory MD Mateus Perry Work Phone: [facility] Work Phone: Start: 03-26-2024 Registered Recurring MD Yvonne Perry Work Phone: [facility] [place] Work Phone: Start: 06-20-2023 End: 06-20-2023 ambulatory WINNIE GUZMÁN Facility:[facility] Start: 06-20-2023 End: 06-20-2023 ambulatory Winnie Guzmán MARISOL Work Phone: Hematology/Oncology Comment on above: 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, estrogen receptor positive (HCC) (Primary Dx); Stage 3a chronic kidney disease (HCC) Start: 06-20-2023 End: 06-20-2023 Patient encounter procedure Winnie Guzmán MARISOL Work Phone: [facility] Start: 06-01-2023 End: 06-01-2023 ambulatory Christiano Gonzales Other Couple Other Start: 06-01-2023 Office outpatient vi sit 15 minutes Christiano Gonzales [facility] Vascular Surgery Start: 04-06-2023 End: 04-07-2023 ambulatory MATEUS PERRY [facility] Start: 03-09-2023 End: 03-09-2023 ambulatory Millie Storm Other Couple Other Start: 03-09-2023 Patient encounter procedure Millie Storm [facility] Vascular Surgery Start: 03-06-2023 End: 03-06-2023 ambulatory EMMA GARZA V [facility] Start: 02-14-2023 End: 02-14-2023 ambulatory WALLACE STONE Facility:[facility] Start: 02-14-2023 End: 02-14-2023 ambulatory Wallace Stone MD Work Phone: Hematology/Oncology Comment on above: 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, estrogen receptor positive (HCC) (Primary Dx); Rash; Other eczema; Stage 3a chronic kidney disease (HCC) Start: 02-14-2023 End: 02-14-2023 Patient encounter procedure Wallace Stone MD Work Phone: [facility] Start: 01-19-2023 End: 01-19-[address] MATEUS PERRY . Facility:[facility] Start: 12-08-2022 End: 12-08-2022 ambulatory Millie Storm Other Couple Other Start: 12-08-2022 Telephone encounter Millie Dc Vascular Surgery Start: 12-07-2022 End: 12-07-2022 ambulatory Millie Storm Other Couple Other Start: 12-07-2022 Patient encounter procedure Millie Storm [facility] Vascular Surgery Start: 11-29-2022 End: 11-29-2022 Admission to same day surgery center MD Mateus Perry Work Phone: [facility]Interventional Radiology Work Phone: Start: 11-29-2022 End: 11-29-2022 ambulatory MD Mateus Perry Work Phone: [facility] Work Phone: Start: 11-24-2022 End: 11-25-2022 ambulatory [facility] Start: 11-24-2022 End: 11-24-2022 Subsequent hospital visit by physician Mateus Perry MD Work Phone: [facility] Start: 11-23-2022 End: 11-23-2022 ambulatory Christiano Gonzales Other Couple Other Start: 11-23-2022 Office outpatient ne w 60 minutes Christiano Gonzales [facility] Vascular Surgery Start: 11-22-2022 End: 11-23-2022 ambulatory Iliana GAGNON Facility:[facility] Start: 11-16-2022 End: 11-16-[address] MATEUS [...] encounter Wallace carolina MD Work Phone: [facility] Comment on above: Referral Information (Vascular Consult) Start: 11-08-2022 End: 11-09-2022 ambulatory Iliana GAGNON Facility:[facility] Start: 11-08-2022 End: 11-08-2022 Patient encounter procedure Iliana GAGNON General Surgery Nill/Said Lindy Start: 11-04-2022 End: 11-05-2022 ambulatory Iliana GAGNON Facility:[facility] Start: 11-04-2022 End: 11-04-2022 Patient encounter procedure Iliana GAGNON General Surgery Nill/Said Olpe Start: 11-02-2022 End: 11-03-[address] MATEUS PERRY . Facility: Start: 10-25-2022 End: 10-26-2022 ambulatory Iliana GAGNON Facility:[facility] Start: 10-25-2022 End: 10-25-2022 Patient encounter procedure Iliana GAGNON General Surgery Nill/Said Olpe Start: 10-19-2022 End: 10-20-[address] ILIANA GAGNON . Facility:[facility] Start: 10-15-[address] ILIANA Batres Facil ity:[facility] Start: 10-12-2022 Encounter for preprocedural laboratory examination DR ILIANA Batres [facility] Start: 10-11-2022 End: 10-12-[address] ILIANA GAGNON . Facility:[facility] Start: 10-11-2022 End: 10-12-2022 Encounter for preprocedural laboratory examination DR ILIANA GAGNON . Facility:[facility] Start: 09-30-2022 End: 10-01-[address] MATEUS PERRY . Facility:[facility] Start: 09-22-2022 Telephone encounter Lars Wilkerson RN Work Phone: Hematology/Oncology Comment on above: Care Coordination (S urgery update) Start: 09-22-2022 End: 09-22-2022 ambulatory WALLACE STONE Facility:[facility] Start: 09-22-2022 End: 09-22-2022 ambulatory Wallace Stone MD Work Phone: Hematology/Oncology Comment on above: 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, estrogen receptor positive (HCC) (Primary Dx) Start: 09-22-2022 End: 09-22-2022 Patient encounter procedure Wallace Stone MD Work Phone: [facility] Comment on above: Malignant neoplasm o f [...] Start: 08-02-2022 End: 08-02-[address] MATEUS EPRRY . Facility:[facility] Start: 07-19-2022 End: 07-20-[address] MATEUS PERRY . Facility:[facility] Start: 06-28-2022 End: 06-28-2022 Subsequent hospital visit by physician Emma Garza MD Work Phone: [facility] Comment on above: Vaginal dysplasia Start: 06-22-2022 End: 06-23-2022 ambulatory [facility] Facility:[facility] Start: 05-04-2022 ambulatory [facility] Facility :[facility] Start: 04-12-2022 End: 04-13-2022 ambulatory SONALI HANK Facility:[facility] Start: 03-17-2022 End: 03-17-[address] MATEUS PERRY . Facility:[facility] Start: 03-16-2022 End: 03-16-[address] MATEUS PERRY . Facility:[facility] Start: 03-15-2022 End: 03-16-2022 ambulatory [facility] Facility:[facility] Start: 02-15-2022 End: 02-16-2022 ambulatory [facility] Facility:[facility] Start: 02-09-2022 End: 02-10-2022 ambulatory [facility] Facility:[facility] Start: 12-13-2021 End: 12-13-2021 Subsequent hospital visit by physician Emma Garza MD Work Phone: [facility] Comment on above: Post-operative state (Primary Dx) Start: 12-06-2021 End: 12-08-2021 Subsequent hospital visit by physician Jesse Hendrix Xr [facility] Comment on above: Arrived Start: 12-06-2021 End: [...] hospital visit by physician Jesse Hendrix Xr [facility] Radiology Comment on above: Arrived [...] W/ REFLEX TO MG FOR LOW K Latoniasa Burks PA-[employer] Work Phone: Start: 05-12-2021 Blood count complete auto&auto difrntl wbc Latoniadavi Burks PA-[employer] Work Phone: Start: 05-12-2021 Radiologic exam ches t 2 views LatoniaTwtBks [facility] Work Phone: Start: 05-12-2021 Ecg routine ecg w/le ast 12 lds i&r only Latoniasa Burks [facility] Work Phone: Start: 08-20-2020 Antibody screen Comment on above: Performed By: #### 6 [id number] #### [address] Start: 01-16-2017 History of placement of stent for coronary artery disease S/P coronary artery stent placement Wallace Stone MD Work Phone: Appendectomy Iliana CHELSI Colposcopy Iliana GAGNON Cryosurgery of lesio n [...] procedure 11/07/2024 10:00 AM EST Office Visit [facility] [address] [facility] [address] [place] [address] Peyman Hensley DPM [address] [facility] [address] [place] [address] [facility] Start: 08-29-2024 End: 08-29-2024 Patient encounter procedure [facility] Comment on above: 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 ([facility]/HCC) (Primary Dx); Diabetes mellitus due to underlying condition with diabetic polyneuropathy, 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 terminologist insulin use ([facility]/HCC); Pain due to onychomycosis of toenails of both feet; Venous insufficiency Start: 06-20-2024 Hemoglobin/Hematocrit Hemoglobin/Hem [facility] Start: 06-20-2024 Serum Creatinine Serum Creatinine [facility] Start: 05-12-2024 Influenza vaccination Influenza Vacc ine (#1) [facility] Start: 02-15-2024 HEMOGLOBIN/HEMATOCRIT HEMOGLOBIN/HEM [facility] Start: 02-15-2024 SERUM CREATININE SERUM CREATININE [facility] Start: 06-16-2023 End: 08-16-2023 CBC W Auto Differential panel - Blood CBC + DIFF Lab Routine 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, estrogen receptor positive (HCC) Expected: 06/16/2023 (Approximate), Expires: 08/16/2023 [facility] Work Phone: Comment on above: Expected: 06/16/2023 (Approximate), Expires: 08/16/2023 Start: 06-16-2023 End: 08-16-2023 Comprehensive metabolic 2000 panel - Serum or Plasma COMP METABOLIC PANEL Lab Routine 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, estrogen receptor positive (HCC) Expected: 06/16/2023 (Approximate), Expires: 08/16/2023 [facility] Work Phone: Comment on above: Expected: 06/16/2023 (Approximate), Expires: 08/16/2023 Start: 05-12-2023 Covid-19 Vaccine ( season) Covid-19 Vaccine () [facility] Start: 05-12-2023 Influenza vaccination C [facility] Start: 04-12-2023 End: 04-12-2023 Patient encounter procedure 04/12/2023 Office Visit Gynecologic Oncology Latonia Brush PA-C [address] [place], [place] [id number] [facility] Start: 02-09-2023 End: 04-11-2023 CBC W Auto Differential panel - Blood CBC + DIFF Lab Routine 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, estrogen receptor positive (HCC) Expected: 02/09/2023 (Approximate), Expires: 04/11/2023 [facility] Work Phone: Comment on above: Expected: 02/09/2023 (Approximate), Expires: 04/11/2023 Start: 02-09-2023 End: 04-11-2023 Comprehensive metabolic 2000 panel - Serum or Plasma COMP METABOLIC PANEL Lab Routine 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, estrogen receptor positive (HCC) Expected: 02/09/2023 (Approximate), Expires: 04/11/2023 [facility] Work Phone: Comment on above: Expected: 02/09/2023 (Approximate), Expires: 04/11/2023 Start: 12-13-2022 Potassium monitoring Potassium monit [facility] Start: 12-06-2022 [facility] Start: 12-06-2022 Potassium monitoring Potassium monit [facility] Start: 11-29-2022 End: 11-29-2022 [facility] Start: 09-11-2022 ADVANCE DIRECTIVE DISCUSSION ADVANCE DIRECTIVE DISCUSSION [facility] Start: 09-11-2022 DEPRESSION ASSESSMENT DEPRESSION ASS ESSMENT [facility] Start: 07-27-2022 End: 07-27-2022 Patient encounter procedure 07/27/2022 Office Visit Gynecologic Oncology Emma Garza MD [address] [place], [place] [id number] [facility] Gynecologic Oncology Services Start: 06-28-2022 End: 06-28-2022 VULVA VAGINAL CERVIX LESION EXCISION LASER VULVA VAGINAL CERVIX LESION EXCISION LASER Vaginal dysplasia 06/28/2022 9:04 AM EDT [facility] Start: 06-15-2022 Creatinine measurement Creatinine mo [facility] Work Phone: Start: 06-15-2022 Potassium monitoring Potassium monit [facility] Work Phone: Start: 05-12-2022 Creatinine measurement Creatinine mo [facility] [employer] Phone: Start: 05-12-2022 Influenza vaccination INFLUENZA (#1) [facility] Start: 05-12-2022 Potassium monitoring Potassium monit [facility] Work Phone: Start: 04-11-2022 Influenza vaccination Flu vaccine (# 1) [facility] Start: 01-14-2022 End: 01-14-2022 Patient encounter procedure 01/14/2022 Office Visit Gynecologic Oncology Latonia Burks PA-C [address] [facility] [address] [place] [address] [facility]necologic Oncology Services Start: 12-13-2021 End: 12-13-2021 VAGINECTOMY [facility] Start: 12-13-2021 End: 12-13-2021 Admission to same day surgery center [facility] Comment on above: VAGINECTOMY, CYSTOSC OPY CYSTOSCOPY, VAGINECT PATY Start: 12-13-2021 Subsequent hospital visit by physician 12/13/2021 Hospital Encounter IP Unit Emma Garza MD [address] [facility] [address] [place], [place] [id number] [facility] Start: 12-13-2021 End: 12-13-2021 Vaginectomy complete removal vaginal wall VAGINECTOMY VAGINAL DYSPLASIA, RULE OUT CANCER 12/13/2021 10:20 AM EDT [facility] Start: 10-31-2021 Annual Wellness Visi t (AWV) Annual Wellness Visit (AWV) [facility] Start: 10-15-2021 COVID-19 VACCINE (4 - Booster for Moderna series) COVID-19 VACCINE (4 - Booster for Moderna series) [facility] Start: 07-01-2021 End: 07-01-2021 Patient encounter procedure 07/01/2021 Office Visit Gynecologic Oncology Kin Abarca MD [address] [facility] [address] [place] [address] [phone] [facility] Services Start: 05-12-2021 Influenza vaccination Flu vaccine (# 1) [facility] Work Phone: Start: 04-05-2021 COVID-19 Vaccine (3 - Booster for Moderna series) COVID-19 Vaccine (3 - Booster for Moderna series) [facility] Start: 10-29-2020 Hemoglobin A1c/Hemoglobin.total in Blood HBA1C [facility] Start: 01-19-2018 Pneumococcal Vaccine : 65+ (2 - PCV) Pneumococcal Vaccine: 65+ (2 - PCV) [facility] Start: 01-19-2018 Pneumococcal Vaccine : 65+ Years (2 of 2 - PCV) Pneumococcal Vaccine: 65+ Years (2 of 2 - PCV) [facility] Start: 01-19-2018 PNEUMOCOCCAL: 65+ (2 - PCV) PNEUMOCOCCAL: 65+ (2 - PCV) [facility] Start: 2007 BONE DENSITY BONE DENSITY [facility] Start: 2007 Bone Density Screening Bone Density Screening [facility] Start: 2007 Pneumococcal 65+ yea rs Vaccine (1 - PCV) Pneumococcal 65+ years Vaccine (1 - PCV) [facility] Start: 2007 Pneumococcal 65+ yea rs Vaccine (1 of 1 - PPSV23) Pneumococcal 65+ years Vaccine (1 of 1 - PPSV23) [facility] Start: 2002 Hepatitis B Vaccine (1 of 3 - Risk 3-dose series) Hepatitis B Vaccine (1 of 3 - Risk 3-dose series) [facility] Start: 1997 Screening for osteoporosis DEXA (modify frequency per FRAX score) [facility] Start: 1992 Shingles Vaccine (1 of 2) Shingles Vaccine (1 of 2) [facility] Start: 1992 SHINGRIX VACCINE (1 of 2) SHINGRIX VACCINE (1 of 2) [facility] Start: 1961 DTaP/Tdap/Td vaccine (1 - Tdap) DTaP/Tdap/Td vaccine (1 - Tdap) [facility] Start: 1961 Urine microalbumin profile [facility] Start: 1960 ANNUAL PCP TEAM 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 USAMA DISEASE VISIT ANNUAL PCP TEAM CHRONIC DISEASE VISIT [facility] Start: 1960 BP CONTROLLED (<130/80) BP CON TROLLED (<130/80) [facility] Start: 1960 Hepatitis B surface antibody level LDL CHOLESTEROL [facility] Start: 1960 Hepatitis C screening Hepatitis C [facility] Start: 1954 Depression Screen Depression Screen [facility] Start: 1952 3 comp foot exam completed DIABETIC FOOT EXAM [facility] Start: 1952 Hepatitis B screening URINE ALBUMIN:CREATININE RATIO [facility] Start: 1952 Hepatitis C antibody , confirmatory test DILATED RETINAL EXAM [facility] Start: 1952 Lipid panel [facility] Start: 1942 Hepatitis C screening Hepatitis C [facility] EKG 12 Lead EKG 12 Lead ECG STAT 06/28/2022 7:29 AM EDT [employer] [facility] [employer] Phone: End: 12-13-2021 INITIATE PACU OXYGEN THERAPY PROTOCOL Initiate PACU Oxygen Therapy Protocol Respiratory Care Routine Continuous until discontinued starting 12/13/2021 [facility] [employer] Phone: Comment on above: Continuous until dis continued starting 12/13/2021 End: 06-28-2022 INITIATE PACU OXYGEN THERAPY PROTOCOL Initiate PACU Oxygen Therapy Protocol Respiratory Care Routine Continuous until discontinued starting 06/28/2022 [employer] [facility] [employer] Phone: Comment on above: Continuous until dis continued starting 06/28/2022 End: 07-19-2024 MAGNO DIAGNOSTIC BILATERAL [facility] Radiology Routine 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, estrogen receptor positive (HCC) 1 Occurrences starting 06/20/2023 until 07/19/2024 [facility] Work Phone: Comment on above: 1 Occurrences starti ng 06/20/2023 until 07/19/2024 Patient referral [facility] Work Phone: Spirometry panel Incentive viktoriya metry Respiratory Care Routine Every 2hr while awake until discontinued starting 12/13/2021 [employer] Phone: Comment on above: Every 2hr while awak e until discontinued starting 12/13/2021 Surgical Pathology Surgical Path ology Lab Routine Release Upon Ordering for 1 Occurrences starting 06/15/2021 [employer] Phone: Comment on above: Release Upon Orderin g for 1 Occurrences starting 06/15/2021 Surgical Pathology Surgical Path ology Lab Routine Release Upon Ordering for 1 Occurrences starting 12/13/2021 [employer] Phone: Comment on above: Release Upon Orderin g for 1 Occurrences starting 12/13/2021 Surgical Pathology Surgical Path ology Lab Routine Vaginal dysplasia Release Upon Ordering for 1 Occurrences starting 06/28/2022 [employer] Phone: Comment on above: Release Upon Orderin g for 1 Occurrences starting 06/28/2022 End: 06-28-2022 SURGICAL PATHOLOGY REPORT SURGICAL PATHOLOGY REPORT Lab Routine Once for 1 Occurrences starting 06/28/2022 until 06/28/2022 [employer] Phone: Comment on above: Once for 1 Occurrenc es starting 06/28/2022 until 06/28/2022 End: 11-24-2022 SURGICAL PATHOLOGY REPORT SURGICAL PATHOLOGY REPORT Lab Routine Once for 1 Occurrences starting 11/24/2022 until 11/24/2022 [employer] Phone: Comment on above: Once for 1 Occurrenc es starting 11/24/2022 until 11/24/2022 [facility] Immunizations Immunization Date Immunization Notes Care Provider Fa cili 07-12-2022 influenza virus vacc ine, unspecified formulation Iliana DORANBerna [facility] 08-20-2021 SARS-CoV-2 (COVID-19 ) [id number] vaccine Iliana GAGNON [facility] 07-01-2021 influenza (HD-IIV4) vaccine, age 65+ yr, high dose, quadrivalent, PF (FLUZONE HIGH-DOSE) Wallace Stone MD Work Phone: [facility] 07-01-2021 influenza virus vacc ine, unspecified formulation Winnie Guzmán PA-C Work Phone: [facility] 11-06-2020 COVID-19, Moderna, P F, 100mcg/0.5mL Stv Xr [facility] 10-09-2020 COVID-19, Moderna, P F, 100mcg/0.5mL Stv Xr [facility] Work Phone: 06-10-2020 Seasonal trivalent influenza vaccine, adjuvanted, preservative free Wallace Stone MD Work Phone: [facility] 06-07-2017 influenza, high dose seasonal, preservative-free Wallace Stone MD Work Phone: [facility] 01-19-2017 pneumococcal polysaccharide vaccine, 23 valyvonne Stone MD Work Phone: [facility] 06-29-2015 influenza, high dose seasonal, preservative-free Wallace Stone MD Work Phone: [facility] 06-23-2014 influenza, high dose seasonal, preservative-free Wallace Stone MD Work Phone: [facility] 06-15-2010 pneumococcal polysaccharide vaccine, 23 valyvonne Stone MD Work Phone: [facility] 10-17-2007 influenza virus vacc ine, whole virus Wallace Stone MD Work Phone: [facility] Payers Date Payer Category Payer Self-pay [id number] 2023 Private Health Insurance [facility] [id number] 2007 Medicare [id number] 2007 Unknown [id number] 2007 Unknown [id number] 1959 Medicare [id number] 1959 Self-pay [id number] 1959 Unknown [id number] 1942 Unknown [id number] 2.16.840.1.557562.3.579. 2.593 1942 Unknown [id number] 2.16.840.1.979043.3.579. 2.593 1942 Unknown [id number] 2.16.840.1.081734.3.579. 2.593 1942 Unknown [id number] 2.16.840.1.926834.3.579. 2.593 1942 Unknown [id number] 2.16.840.1.557678.3.579. 2.593 1942 Unknown [id number] 2.16.840.1.320292.3.579. 2.593 1942 Unknown [id number] 2.16.840.1.361245.3.579. 2.593 1942 Unknown [id number] 2.16.840.1.096114.3.579. 2.593 1942 Unknown [id number] 2.16.840.1.491300.3.579. 2.593 1942 Unknown [id number] 2.16.840.1.760244.3.579. 2.593 1942 Unknown [id number] 2.16.840.1.847827.3.579. 2.593 1942 Unknown [id number] 2.16.840.1.385958.3.579. 2.593 1942 Unknown [id number] 2.16.840.1.533561.3.579. 2.593 1942 Unknown [id number] 2.16.840.1.156209.3.579. 2.593 1942 Unknown [id number] 2.16.840.1.051303.3.579. 2.593 1942 Unknown [id number] 2.16.840.1.560920.3.579. 2.593 1942 Unknown [id number] 2.16.840.1.112236.3.579. 2.593 1942 Unknown [id number] 2.16.840.1.274750.3.579. 2.593 1942 Unknown [id number] 2.16.840.1.035327.3.579. 2.593 1942 Unknown [id number] 2.16.840.1.320106.3.579. 2.593 1942 Unknown [id number] 2.16.840.1.466826.3.579. 2.593 1942 Unknown [id number] 2.16.840.1.956006.3.579. 2.593 1942 Unknown [id number] 2.16.840.1.576451.3.579. 2.593 1942 Unknown [id number] 2.16.840.1.699053.3.579. 2.593 1942 Unknown [id number] 2.16.840.1.385504.3.579. 2.593 1942 Unknown [id number] 2.16.840.1.343537.3.579. 2.593 1942 Unknown [id number] 2.16.840.1.225375.3.579. 2.593 1942 Unknown [id number] 2.16.840.1.727389.3.579. 2.727 1942 Unknown [id number] 2.16.840.1.386295.3.579. 2.727 1942 Unknown [id number] 2.16.840.1.324658.3.579. 2.727 1942 Unknown [id number] 2.16.840.1.392337.3.579. 2.727 1942 Unknown [id number] 2.16.840.1.389505.3.579. 2.727 1942 Unknown [id number] 2.16.840.1.113171.3.579. 2.727 1942 Unknown [id number] 2.16.840.1.439145.3.579. 2.727 1942 Unknown [id number] 2.16.840.1.836521.3.579. 2.175 1942 Unknown [id number] 2.16.840.1.540202.3.579. 2.175 1942 Unknown [id number] 2.16.840.1.988320.3.579. 2.175 1942 Unknown [id number] 2.16.840.1.979042.3.579. 2.1259 1942 Unknown [id number] 2.16.840.1.007537.3.579. 2.1259 Medicare Medicare Outpatient [id number] 4D [id number] Unknown [id number] 2.16.840.1.820040.3.579. 2.531 Unknown [id number] 2.16.840.1.229601.3.579. 2.531 Social History Date Type Detail Facility Start: 05-12-2021 End: 06-20-2024 Tobacco smoking status NDIS Former smoker [employer] Phone: Start: 09-11-1962 End: 06-28-2018 History of tobacco use Current smoker [facility] Start: 09-11-1962 End: 06-28-2018 History of tobacco use Cigarette Smoker [facility] Start: 05-12-2021 End: 06-20-2024 Tobacco use and exposure Never used [facility] Start: 05-12-2021 End: 11-24-2022 Alcohol intake Ex-drinker (finding) [employer] Phone: Start: 1940 Sex Assigned At Not on file [employer] Phone: Start: 11-26-2021 End: 06-24-2022 Exposure to SARS-CoV-2 (event) Not sure [facility] Start: 06-15-2021 End: 06-20-2024 Cigarettes smoked current (pack per day) - Reported [facility] History of tobacco use Passive smoker [facility] [employer] Phone: Tobacco smoking status Never [facility] Start: 02-14-2023 End: 06-20-2024 Sex Assigned At Female Mikie Gruber [facility] Start: 09-19-2022 End: 02-14-2023 Alcohol intake Current non-drinker of alcohol (finding) [facility] Start: 1940 Sex Assigned At Female F [facility] Tobacco smoking stat [facility] Tobacco smoking consumption unknown [facility] Start: 06-20-2024 End: 08-29-2024 Alcoholic beverage intake Lifetime non-drinker (finding) [facility] Medical Equipment Procedure Code Equipment Code [...] Facility 09-09-2022 Functional Status N/A [facility] [place] Clinical Notes 05-12-2021 to 09-12-2024 Peyman A Judson, FEMI - 08/29/2024 10:00 AM Nathanaelvalentina Nair Judson, FEMI - 06/20/2024 9:40 AM EDT Note Date & Type Note Facility 09-12-2024 Note ME Electrophysiology Consult Note ME Cardiology [facility] Reason for visit: s/p CRTD and AVN ablation, wound issues 09/12/24 Wound is healing well. Skin well opposed but thin to lack of s/Q fat. 09/02/24 Pt has come for wound check. [...] today shows good function. Patient underwent the BANKING SUPERVISOR placement on 07/10/2024 and subsequently underwent an [...] in A-fib. She was just discharged from [facility] for GI bleed. Eliquis and aspirin have [...] Arrhythmia Atrial fibrillation ([facility]) CAD (coronary artery disease) Cancer ([facility]) CHF (congestive heart failure) ([facility]) Chronic kidney disease COPD (chronic obstructive pulmonary disease) ([facility]) Diabetes mellitus ([facility]) GI bleed Heart murmur Hyperlipidemia Hypertension PVD (peripheral vascular disease) ([facility]) PSH: Past Surgical History: Procedure Laterality Date CARDIAC CATHETERIZATION 12/15/2011, 08/23/2010, 12/30/2004, CORONARY STENT PLACEMENT HYSTERECTOMY 03/11/2005 VASCULAR SURGERY SH: Social Determinants of Health Tobacco Use: Medium Risk (09/12/2024) Patient History Smoking Tobacco Use: Former Smokeless Tobacco Use: Never Passive Exposure: Past Alcohol Use: Not on file Financial Resource Strain: Not on file Food Insecurity: No Food Insecurity (09/12/2024) Hunger Vital Sign Worried About Running Out of Food in the Last Year: Never true Ran Out of Food in the Last Year: Never true Transportation Needs: No Transportation Needs (09/12/2024) Transportation Lack of Transportation (Medical): No Lack of Transportation (Non-Medical): No Physical Activity: Not on file Stress: Not on file Social Connections: Not on file Intimate Partner Violence: Not At Risk (09/12/2024) Humiliation, Afraid, Rape, and Kick questionnaire Fear of Current or Ex-Partner: No Emotionally Abused: No Physically Abused: No Sexually Abused: No Depression: Not at risk (09/12/2024) PHQ-2 PHQ-2 Score: 0 Housing Stability: Low Risk (09/12/2024) Housing Stability Vital Sign Unable to Pay for Housing in the Last Year: No Number of Times Moved in the Last Year: 1 Homeless in the Last Year: No Utilities: Not on file Health Literacy: Not on file Allergies: Allergies Allergen Reactions Ciprofloxacin Hives and Other Other reaction(s): Other: See Comments tendon issues tendon issues Cefdinir Other Tramadol Other Oxycodone Rash Rash & GI upset Oxycodone-Acetaminophen Other GI upset & rash Weight: 66.2kg Visit Vitals BP 122/74 (BP Location: Left arm, Patient Position: Sitting, BP Cuff Size: Adult) Pulse 76 Resp 12 Ht 1.524 m (5') Wt 66.2 kg (146 lb) BMI 28.51 kg/m??? OB Status Postmenopausal Smoking Status Former BSA 1.67 m??? Meds: Current Outpatient Medications on File Prior to Visit Medication Sig Dispense Refill albuterol 2.5 mg /3 mL (0.083 %) nebulizer solution USE 1 VIAL IN NEBULIZER 4 TIMES DAILY NEEDED amoxicillin (Amoxil) 500 mg tablet Take 500 mg by mouth in the morning. anastrozole (Arimidex) 1 mg chemo tablet Take 1 mg by mouth in the morning Swallow whole with a drink of water. apixaban (Eliquis) 2.5 mg tablet Take 1 tablet (2.5 mg) (more content not included)... [facility] 09-02-2024 Note ME Electrophysiology Consult Note ME Cardiology - [facility] Reason for visit: s/p CRTD and [...] today shows good function. Patient underwent the BANKING SUPERVISOR placement on 07/10/2024 and subsequently underwent an [...] in A-fib. She was just discharged from [facility] for GI bleed. Eliquis and aspirin have [...] Arrhythmia Atrial fibrillation ([facility]) CAD (coronary artery disease) Cancer ([facility]) CHF (congestive heart failure) ([facility]) Chronic kidney disease COPD (chronic obstructive pulmonary disease) ([facility]) Diabetes mellitus ([facility]) GI bleed Heart murmur Hyperlipidemia Hypertension PVD (peripheral vascular disease) ([facility]) PSH: Past Surgical History: Procedure Laterality Date [...] fish oil concen (more content not included)... [facility] 08-29-2024 History of Present illness Narrative Patient: [...] 4 months after hitting object. Currently sees [facility] wound center every 3 weeks with application [...] Partner Violence: Unknown (11/02/2023) Received from [facility] [place] Safety & Environment Fear of Current [...] and negative PT pedal pulses NEURO: 5.07 Rollins Sybil monofilament test intact to digits and forefoot bilaterally 125Hz tuning fork diminished to 1st MPJ bilaterally ORTHO: Positive pain on palpation to nails 1 through 10 Positive pain palpation left anterior braun ASSESSMENT 1. 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 Diabetes mellitus due to underlying condition with diabetic polyneuropathy, 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 assisted insulin use (CMS/HCC) 3. Pain due to [...] DSD applied . Patient currently has the [facility] wound center applying Medihoney every other day. Did discuss possibility if no improvement to contact Podiatry for advanced wound care treatments or if any signs of infection Peyman Hensley DPM documented in this encounter [facility] 08-27-2024 Note ME Electrophysiology Consult Note ME Cardiology [facility] Reason for visit: s/p CRTD [...] today shows good function. Patient underwent the BANKING SUPERVISOR placement on 07/10/2024 and subsequently underwent an [...] in A-fib. She was just discharged from [facility] for GI bleed. Eliquis and aspirin have [...] Arrhythmia Atrial fibrillation ([facility]) CAD (coronary artery disease) Cancer ([facility]) CHF (congestive heart failure) ([facility]) Chronic kidney disease COPD (chronic obstructive pulmonary disease) ([facility]) Diabetes mellitus ([facility]) GI bleed Heart murmur Hyperlipidemia Hypertension PVD (peripheral vascular disease) ([facility]) PSH: Past Surgical History: Procedure Laterality Date CARDIAC CATHETERIZATION 12/15/2011, 08/23/2010, 12/30/2004, CORONARY STENT PLACEMENT HYSTERECTOMY 03/11/2005 VASCULAR SURGERY SH: Social Determinants of Health Tobacco Use: Medium Risk (06/20/2024) [facility] Patient History Smoking Tobacco Use: Former [...] Depression: Not at risk (02/14/2023) Received from [facility] PHQ-2 PHQ-2 score: 0 Housing Stability: Not [...] mouth two times daily. fish oil concentrate (Sullivan-3) 120-180 mg capsule Take 1,000 mg by [...] insulin glargine (L (more content not included)... [facility] 08-12-2024 Note AV NODE ABLATION PRO CEDURE REPORT DATE OF PROCEDURE: 08/12/2024 PERFORMING PHYSICIAN: Dr. Brian Kern ORTHOPEDICALLY IMPAIRED TEACHER: SAVAGE CONSENT: Patient NAME OF THE PROCEDURE: [...] in A-fib. She was just discharged from [facility] for GI bleed. Eliquis and aspirin have been put on hold. She was originally scheduled for DCCV today with Dr. Keyes. Jardiance was stopped, and metoprolol was reduced to 100mg daily.She underwent BANKING SUPERVISOR on 07/10/24 and now presents for AVN [...] in 1 month. 3. Continue anticoagulation. Brian Kern MD Cardiac Electrophysiology. [facility] 08-12-2024 Note Patient: Harman rubio Procedure Information Date/Time: 08/12/24 1230 Procedure: AV node ablation - PC APPROVED Location: [facility] SUPERVISOR 1 EP / [facility] (Cath) Providers: Brian Kern MD Clinical information reviewed: Allergies Meds OB Status Physical Exam Airway Mallampati: II TM distance: >3 FB Neck ROM: full Cardiovascular Dental Pulmonary Abdominal Anesthesia Plan ASA 2 CSE Additional Equipment Requests [facility] 07-17-2024 Note ME Cardiology - [facility] Subjective Harman Mcleod [...] List Diagnosis Angina pectoris (CMS/HCC) Atherosclerosis of [place] coronary artery of [place] heart without angina pectoris Dyslipidemia Dyspnea Gastroesophageal [...] m (5' 1 (more content not included)... [facility] 07-10-2024 Note BANKING SUPERVISOR-D IMPLANT PROCED URE NOTE DATE OF PROCEDURE: 07/10/2024 PERFORMING PHYSICIAN: Dr. Brian Kern ORTHOPEDICALLY IMPAIRED TEACHER: SAVAGE CONSENT: Patient LOCATION: [employer] [facility] PROCEDURE PERFORMED: 1. Implantation of Biventricular ICD ([employer]) 2. U/S venous access 3. Coronary [...] be in A-fib. She was just [facility] for [facility]. Eliquis and aspirin have [...] dizziness/lightheadedness. Decision was made to proceed with BANKING SUPERVISOR-D device and an AVN ablation. PROCEDURAL DETAILS: [...] occasions using seldinger technique using a 5 Macedonian micropunture needle and exchanged for 0.034 wire. I decided to proceed with opening of the pocket. Localinfiltration of 1% Lidocaine was performed and an incision was created in the left upper chest. Dissection was then performed using cautery down. An active fixation [employer] ICD lead was then delivered through the 8F sheath to the right ventricle. After confirmation of lead position on orthogonal views (JAIMES and SERBIAN) to confirm position in the septal aspect, the screw was activated. After confirmation of good sensing parameters, injury pattern and pacing thresholds, 10V pacing was done and no diaphragmatic stimulation was noted. It was then secured in the pocket using three 1-0 Silk sutures. I then proceeded to perform the LV lead placement. A [place] sheath was advanced into the RV over [...] postero-lateral branch that was fairly good size. [place]-Tammy catheter was then taken out and a 90degree inner cannula was advanced into the CS. The amplatz wire was removed and then a0.24 wire was used as a emily wire. I then used a whisper wire and this tracked into the posterolateral vein. [employer] S shaped lead was advanced over 0.014 wire into the lateral border. Once the guiding sheaths were removed, the lead was secured in the pocket using three 0- Silk sutures.The leads were then attached to a [facility] [employer] BANKING SUPERVISOR-D device and the leads tug tested and [...] was placed o (more content not included)... [facility] 07-10-2024 Note Patient: Harman rubio Procedure Information Date/Time: 07/10/24 1200 Procedure: Implant ICD - biventricular - PC APPROVED [employer] Location: [facility] SUPERVISOR 1 / [facility] (Cath) Providers: Brian Kern MD Clinical information reviewed: Allergies Meds Physical Exam Airway Mallampati: II TM distance: >3 FB Cardiovascular Dental Pulmonary Abdominal Anesthesia Plan ASA 3 CSE Anesthetic plan and risks discussed with patient. Use of blood products discussed with patient who. Additional Equipment Requests [facility] 07-10-2024 Note Betadine nasal swabs completed. Pt did CHG wipes last night. Pt stated that the wipes made her break out. Pt does not want to use the wipes again preprocedure. [facility] 07-02-2024 Note ME Electrophysiology Consult Note ME Cardiology [facility] Reason for visit: Afib HPI: [...] in A-fib. She was just discharged from [facility] for GI bleed. Eliquis and aspirin have [...] mouth two times daily. fish oil concentrate (Sullivan-3) 120-180 mg capsule Take 1,000 mg by [...] mouth at bedti (more content not included)... [facility] 06-20-2024 History of Present illness Narrative Patient: [...] 2 months after hitting object. Currently sees [facility] wound center every 3 weeks with application [...] Partner Violence: Unknown (11/02/2023) Received from [facility] [place] Safety & Environment Fear of Current [...] and negative PT pedal pulses NEURO: 5.07 Rollins Sybil monofilament test intact to digits and forefoot bilaterally 125Hz tuning fork diminished to 1st MPJ bilaterally ORTHO: Positive pain on palpation to nails 1 through 10 Positive pain palpation left anterior braun ASSESSMENT 1. Venous insufficiency 2. Hav (hallux abducto valgus), left 3. Acquired deformity of left toe 4. 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 ([facility]) 5. Diabetes mellitus due to underlying condition with diabetic polyneuropathy, 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 terminologist insulin use ([facility]) 6. Pain due to onychomycosis of toenails [...] DSD applied . Patient currently has the [facility] wound center applying Medihoney every other day. Did discuss possibility if no improvement to contact Podiatry for advanced wound care treatments or if any signs of infection Peyman Hensley DPM documented in this encounter [facility] 06-12-2024 Note ME Cardiology - [facility] Subjective Harman Mcleod is a 83 y.o. year old female patient being seen for follow up echo performed on 06/04/2024. Denies chest pain, SOB, and palpitations. Feels good but is tired today. BP at home was 107/71 today and yesterday 114/55. Patient Active Problem List Diagnosis Angina pectoris (CMS/HCC) Atherosclerosis of [place] coronary artery of [place] heart without angina pectoris Dyslipidemia Dyspnea Gastroesophageal [...] alert and orie (more content not included)... [facility] 05-27-2024 Note Remains on ASA No c/o angina or concerns [facility] 05-27-2024 Note As above [facility] 05-27-2024 Note [id number]= 6-7 at least with Age, Sex, CHF, CAD/Vascular disease, HTN, DM Currently per assessment she appears to be in rhythm heart rate well-controlled with metoprolol 200 mg daily and she remains on Eliquis anticoagulation without any bleeding tendencies or concerns. [facility] 05-27-2024 Note Lipid abnormalities are elevated therefore will increase zocor to 40 mg daily. Will repeat lipid level and liver function in 2-3 months [facility] 05-27-2024 Note Congestive heart ivanemily todd is stable without worsening symptoms [facility] II -currently patient is euvolemic without exacerbation. She has returned home from senior living facility and presents today with granddaughter who [...] helps prevent rehospitalization for heart failure exacerbation [facility] 05-27-2024 Note Hypertension current ly is well-controlled at 106/67 Continue amlodipine, hydralazine, Imdur, Toprol and spironolactone Currently renal function normal, no acute concerns. [facility] 05-27-2024 Note Coronary artery dise ase is [...] exercise as tolerated and continue all medications. [facility] 05-27-2024 Note Pt is here for a one year follow up. Pt denies chest pain, palpatations, sob. Review of Systems All other systems reviewed and are negative. [facility] 05-27-2024 Note [facility] CARDIOLOGY PROGR ESS NOTE [...] overload-of which she was discharged to senior living facility until this past December. She has [...] systems reviewed and are negative Admit to [facility] 02/13/24 DC Summary DS: Summary Hospital [...] 81 mg by mouth. fish oil concentrate (Sullivan-3) 120-180 mg capsule Take 1,000 mg by [...] 112 mcg tabl (more content not included)... [facility] 04-10-2024 Progress note Note Date/Time April 10, 2024 10:30am [facility] [address] [place] [address] Wound Center Provider Note Signed Patient: Harman Mcleod MR#: [id number] : 1940 Acct:[id number] Age/Sex: 83 / F Copies to: MD Janell Oliver APRN~ HPI Date of Visit Date of Visit: Date of Service: 04/10/2024 Time of Service: 10:26 Narrative HPI: 12/11/23 Harman is an 83 year old presenting to [facility] wound care for an initial visit [...] for the entire visit, she has [facility], the left leg will be treated [...] wrapped again today for good measure and [facility] can remove next week and start stockings or wraps if something is open on the legs, family and friend present for the visit, does not need to return to the office unless new ulcers do develop, spoke about her getting established with a lawyer and so hopefully she will follow through [...] to go to the ED per the [facility] nurse but she had refused [...] bilateral lower leg ulcers Mode of Arrival/ Ob/Gyn Nurse: Friend Assistive Device Used Today: Walker Lives with:: Significant Other Appetite Description: Within Normal Limits Who helps w/ dressing change?: Home Health Why Do You Need Help?: Can't Reach Ulcer, Limited mobility, Unsafe leave home byself and Taxing effort to leave home Smoking Status: Former smoker [facility] Medical History (Updated 04/10/24 @ [...] List clean-up per request of Phys[facility]: [facility] Problem List clean-up [...] DAILY 04/25/19 [History Confirmed 12/11/23] omega-3s 300 jc-kkv-uwg-other [id number] oil 1,000 mg capsule (Sullivan-3 Fish Oil) 2 cap PO BID 04/25/19 [...] Stasis Ulcer Thickness: Skin Breakdown Bed Appearance: Percy Percent of Wound Bed Granulated/Red: 100 Percent [...] <Electronically signed by FERNY Mathews> 04/10/24 1030 [facility] Work Phone: 1(705) 342-909407-16-2024 Progress note Author Janell Mathews [facility] March 26, 2024 9:51am Note Date/Time March 26, 2024 9:51 am [facility] [address] [place] [address] Wound Center Provider Note Signed Patient: Harman Mcleod MR#: [id number] : 1940 Acct:[id number] Age/Sex: 83 / F Copies to: MD Janell Oliver APRN~ HPI Date of Visit Date of Visit: Date of Service: 03/26/2024 Time of Service: 09:47 Narrative HPI: 12/11/23 Harman is an 83 year old presenting to [facility] wound care for an initial visit [...] for the entire visit, she has [facility], the left leg will be treated [...] wrapped again today for good measure and [facility] can remove next week and start stockings or wraps if something is open on the legs, family and friend present for the visit, does not need to return to the office unless new ulcers do develop, spoke about her getting established with a lawyer and so hopefully she will follow through [...] to go to the ED per the [facility] nurse but she had refused [...] bilateral lower leg ulcers Mode of Arrival/ Ob/Gyn Nurse: Friend Assistive Device Used Today: Walker Lives with:: Significant Other Appetite Description: Within Normal Limits Who helps w/ dressing change?: Home Health Why Do You Need Help?: Can't Reach Ulcer, Limited mobility, Unsafe leave home byself and Taxing effort to leave home Smoking Status: Former smoker [facility] Medical History (Updated 02/13/24 @ [...] DAILY 04/25/19 [History Confirmed 12/11/23] omega-3s 300 rk-jzy-glx-other izbyc1h-zroa oil 1,000 mg capsule (Sullivan-3 Fish Oil) 2 cap PO BID 04/25/19 [...] Breakdown Bed Appearance: Epithelial Tissue or Bridge, Percy and Yellow Percent of Wound Bed Granulated/Red: [...] <Electronically signed by FERNY Mathews> 03/26/24 0951 [facility] Work Phone: 1(264) 549-395306-04-2024 Progress note Author Janell Mathews [facility] February 13, 2024 10:55am Note Date/Time February 13, 2024 10:55 am [facility] [address] [place] [address] Wound Center Provider Note Signed Patient: Harman Mcleod MR#: [id number] : 1940 Acct:[id number] Age/Sex: 83 / F Copies to: MD Janell Oliver, PBX MECHANIC~ HPI Date of Visit Date of Visit: Date of Service: 02/13/2024 Time of Service: 10:47 Narrative HPI: 12/11/23 Harman is an 83 year old presenting to [facility] wound care for an initial visit [...] present for the entire visit, she has [facility], the left leg will be treated [...] wrapped again today for good measure and [facility] can remove next week and start stockings or wraps if something is open on the legs, family and friend present for the visit, does not need to return to the office unless new ulcers do develop, spoke about her getting established with a lawyer and so hopefully she will follow through [...] to go to the ED per the [facility] nurse but she had refused this and wanted to come to this appt instead Subjective Pain Left Leg: Pain Description: Intermittent Pain Intensity: 0 Wound/Ulcer History When did wound start?: August 2023 bilateral lower leg ulcers Mode of Arrival/ Ob/Gyn Nurse: Friend Assistive Device Used Today: Walker Lives with:: Significant Other Appetite Description: Within Normal Limits Who helps w/ dressing change?: Home Health Why Do You Need Help?: Can't Reach Ulcer, Limited mobility, Unsafe leave home byself and Taxing effort to leave home Smoking Status: Former smoker [facility] Medical History (Updated 02/13/24 @ 10:54 by Janell Mathews APRN) Leg ulcer, left Cataract Problem List clean-up per request of Phys. 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 EHR Cmte Vaginal lesion Problem List clean-up per request of Phys. EHR [facility] PAD (peripheral artery disease) Problem [...] List clean-up per request of Phys. EHR [facility] Surgical History History of bladder suspension procedure Problem List clean-up per request of Phys. EHR Cmte H/O: hysterectomy Problem List clean-up per request of Phys. EHR [facility] History of appendectomy Problem List clean-up per request of Phys. EHR [facility] History of heart artery stent Problem List clean-up per request of Phys. EHR [facility] Family History (Updated 06/01/23 @ [...] DAILY 04/25/19 [History Confirmed 12/11/23] omega-3s 300 xr-uae-rqn-other tmbto7z-bcur oil 1,000 mg capsule (Sullivan-3 Fish Oil) 2 cap PO BID 04/25/19 [...] Posterior Thigh: Bed Appearance: Beefy Red and Percy Percent of Wound Bed Granulated/Red: 0 Percent [...] <Electronically signed by FERNY Mathews> 02/13/24 1055 [facility] Work Phone: 1(628) 854-439405-21-2024 Progress note Author Janell Mathews [facility] January 30, 2024 10:44am Note Date/Time January 30, 2024 10:44 am [facility] [address] [place] [address] Wound Center Provider Note Signed Patient: Harman Mcleod MR#: [id number] : 1940 Acct:[id number] Age/Sex: 83 / F Copies to: MD Janell Oliver, PBX MECHANIC~ HPI Date of Visit Date of Visit: Date of Service: 01/30/2024 Time of Service: 10:37 Narrative HPI: 12/11/23 Harman is an 83 year old presenting to [facility] wound care for an initial visit [...] present for the entire visit, she has [facility], the left leg will be treated [...] wrapped again today for good measure and [facility] can remove next week and start stockings or wraps if something is open on the legs, family and friend present for the visit, does not need to return to the office unless new ulcers do develop, spoke about her getting established with a lawyer and so hopefully she will follow through [...] bilateral lower leg ulcers Mode of Arrival/ Ob/Gyn Nurse: Friend Assistive Device Used Today: Walker Lives with:: Significant Other Appetite Description: Within Normal Limits Who helps w/ dressing change?: Home Health Why Do You Need Help?: Can't Reach Ulcer, Limited mobility, Unsafe leave home byself and Taxing effort to leave home Smoking Status: Former smoker [facility] Medical History (Updated 01/30/24 @ [...] of Phys. EHR Cmte Family History (Updated 09/21/23 @ 08:45 by Provider Conversion) Father Mother [...] DAILY 08/15/19 [History Confirmed 12/11/23] omega-3s 300 kw-yzd-aei-other zblqn3k-iuky oil 1,000 mg capsule (Sullivan-3 Fish Oil) 2 cap PO BID 04/25/19 [...] Posterior Thigh: Bed Appearance: Beefy Red and Percy Percent of Wound Bed Granulated/Red: 100 Percent [...] <Electronically signed by FERNY Mathews> 01/30/24 1044 [facility] Work Phone: 1(499) 533-470304-18-2024 Progress note Author Janell Mathews [facility] December 28, 2023 11:22am Note Date/Time December 28, 2023 11: 22am [facility] [address] [place] [address] Wound Center Provider Note Signed Patient: Hamran Mcleod MR#: [id number] : 1940 Acct:[id number] Age/Sex: 83 / F Copies to: MD Janell Oliver APRN~ HPI Date of Visit Date of Visit: Date of Service: 12/28/2023 Time of Service: 11:19 Narrative HPI: 12/11/23 Harman is an 83 year old presenting to [facility] wound care for an initial visit [...] present for the entire visit, she has [facility], the left leg will be treated [...] wrapped again today for good measure and [facility] can remove next week and start stockings or wraps if something is open on the legs, family and friend present for the visit, does not need to return to the office unless new ulcers do develop, spoke about her getting established with a lawyer and so hopefully she will follow through on that, spoke about compression socks too forlong term use Subjective Pain Left Leg: Pain Intensity: 0 Wound/Ulcer History When did wound start?: August 2023 bilateral lower leg ulcers Mode of Arrival/ Ob/Gyn Nurse: Friend Assistive Device Used Today: Walker Lives with:: Significant Other Appetite Description: Within Normal Limits Who helps w/ dressing change?: Home Health Why Do You Need Help?: Can't Reach Ulcer, Limited mobility, Unsafe leave home byself and Taxing effort to leave home Smoking Status: Former smoker [facility] Medical History (Updated 12/11/23 @ 09:30 by Janell Mathews APRN) Leg ulcer, left Cataract Problem List clean-up per request of Phys. EHR 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 EHR Cmte Vaginal lesion Problem List clean-up per request of Phys. EHR [facility] PAD (peripheral artery disease) Problem List clean-up per request of Phys. EHR Cmte CAD (coronary artery disease) Problem List clean-up per request of Phys. EHR Cmte Dyslipidemia Problem List clean-up per request of Phys. EHR Cmte Hyperthyroidism Problem List clean-up per request of Phys. EHR [facility] Diabetes mellitus Problem List clean-up per request of Phys. EHR [facility] Hypertension Problem List clean-up per request of Phys. EHR [facility] Surgical History History of bladder suspension procedure Problem List clean-up per request of Phys. EHR [facility] H/O: hysterectomy Problem List clean-up per request of Phys. EHR [facility] History of appendectomy Problem List clean-up per request of Phys. EHR [facility] History of heart artery stent Problem List clean-up per request of Phys. EHR [facility] Family History (Updated 06/01/23 @ [...] DAILY 04/25/19 [History Confirmed 12/11/23] omega-3s 300 ib-dih-faw-other qdosa1b-jokt oil 1,000 mg capsule (Sullivan-3 Fish Oil) 2 cap PO BID 04/25/19 [...] <Electronically signed by FERNY Mathews> 12/28/23 1122 [facility] Work Phone: 1(249) 722-962304-01-2024 Progress note Author Janell Mathews [facility] December 11, 2023 9:35am Note Date/Time December 11, 2023 9:35 am [facility] [address] [place] [address] Wound Center Provider Note Signed Patient: Harman Mcleod MR#: [id number] : 1940 Acct:[id number] Age/Sex: 83 / F Copies to: MD Janell Oliver APRN~ HPI Date of Visit Date of Visit: Date of Service: 12/11/2023 Time of Service: 09:27 Narrative HPI: 12/11/23 Harman is an 83 year old presenting to [facility] wound care for an initial visit [...] for the entire visit, she has [facility], the left leg will be treated [...] bilateral lower leg ulcers Mode of Arrival/ Ob/Gyn Nurse: Friend Assistive Device Used Today: Walker Lives with:: Significant Other Appetite Description: Within Normal Limits Who helps w/ dressing change?: Home Health Why Do You Need Help?: Can't Reach Ulcer, Limited mobility, Unsafe leave home byself and Taxing effort to leave home Smoking Status: Former smoker [facility] Medical History (Updated 12/11/23 @ 09:30 by Janell Mathews APRN) Leg ulcer, left Cataract Problem List clean-up per request of Phys. EHR 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 EHR [facility] Vaginal lesion Problem List clean-up per request of Phys. EHR [facility] PAD (peripheral artery disease) Problem List clean-up per request of Phys. EHR Cmte CAD (coronary artery disease) Problem List clean-up per request of Phys. EHR Cmte Dyslipidemia Problem List clean-up per request of Phys. EHR Cmte Hyperthyroidism Problem List clean-up per request of Phys. EHR [facility] Diabetes mellitus Problem List clean-up per request of Phys. EHR Cmte Hypertension Problem List clean-up per request of Phys. EHR [facility] Surgical History History of bladder suspension procedure Problem List clean-up per request of Phys. EHR [facility] H/O: hysterectomy Problem List clean-up per request of Phys. EHR Cmte History of appendectomy Problem List clean-up per request of Phys. EHR [facility] History of heart artery stent Problem List clean-up per request of Phys. EHR [facility] Family History (Updated 06/01/23 @ [...] DAILY 04/25/19 [History Confirmed 12/11/23] omega-3s 300 kz-jvk-hbm-other iyhzo6z-npdv oil 1,000 mg capsule (Sullivan-3 Fish Oil) 2 cap PO BID 04/25/19 [...] Breakdown Bed Appearance: Epithelial Tissue or Bridge, Percy and Yellow Percent of Wound Bed Granulated/Red: [...] Signed By: <Electronically signed by FERNY Mathews> 12/11/2335 [facility] Work Phone: 1(554) 848-961210-10-2023 NoteHNO ID: [id number] Author: Winnie Guzmán PA-C Service: ? Author Type: Physician Oracle Database Analyst Type: Progress Notes Filed: 06/20/2023 3:58 PM Note Text: PATIENT NAME: Harman Coronel [facility] NO.: [id number] ATTENDING PHYSICIAN: Wallace Stone MD DATE OF [...] 6.4 10/24/2017 7.3 Al (more content not included)...[facility]10-10-2023 Nurse Note * Lina Lopes MA - 06/20/2023 2:49 PM EDT Patient would like to know if she needs a mammogram? She was told in Oct that she would need one in6 months. Lina Lopes MA documented in this encounterParkview [facility]10-10-[facility]23 History of Present illness Narrative* Winnie Guzmán PA-C - 06/20/2023 2:30 PM EDT Images from the original note were not included. PATIENT NAME: Harman Mcleod [facility] NO.: [id number] ATTENDING PHYSICIAN: Wallace Stone MD DATE OF [...] Range Status 06/20/2023 4.8 % Final Abs Graves Date Value Ref Range Status 06/20/2023 0.49 [...] Dr. Perry Vulvar high grade dysplasia- Follows As[facility] Onc at [facility] R Leg swelling and pain and h/o PVD- Follows vascular HTN--managed by PCP Winnie Guzmán PA-C CC: MD Mateus Spicer MD documented in this encounterParkview Health [facility]09-21-2023 Evaluation note* Encounter Date Diagnosis Assessment [...] In addition I took her to the [facility] and performed a right iliac venogram which [...] offer her a second opinion at the [facility] vascular medicine program. She declined. I will see her as needed in the future. Couple Other 06-29-2023 Evaluation note* Encounter Date Diagnosis [...] to call us with any concerns whatsoever. Couple Other 06-06-2023 NoteHNO ID: [id number] Author: Wallace Stone MD Service: ? Author Type: Physician Type: Progress Notes Filed: 02/14/2023 10:49 AM Note Text: PATIENT NAME: Harman Mcleod CLINIC NO.: [id number] ATTENDING PHYSICIAN: Wallace Stone MD DATE OF [...] 04/28/2020 1.12 BUN (mg/dL) (more content not included)...[facility]06-06-2023 History of Present illness Narrative* Wallace Stone MD - 02/14/2023 10:37 AM EDT Images from the original note were not included. PATIENT NAME: Harman Mcleod CLINIC NO.: [id number] ATTENDING PHYSICIAN: Wallace Stone MD DATE OF [...] Range Status 02/14/2023 8.3 % Final Abs Graves Date Value Ref Range Status 02/14/2023 0.86 [...] Dr. Perry Vulvar high grade dysplasia- Follows Assembler Unit Onc at [place] [facility] R Leg swelling and pain and h/o PVD- Follows vascular HTN Rash- refer to Derm Thank you for the kind referral. If there are any questions and or concerns please do not hesitate to contact me at [phone]. Wallace Stone MD Hematology/Medical Oncology [facility] I spent a total of 30 minutes on the date of the service which included preparing to see the patient, uwcm-bi-ruzm patient care, completing clinical documentation, obtaining and/or reviewing separately obtained history, performing a medically appropriate examination, counseling and educating the pat ient/family/caregiver, and ordering medications, tests, or procedures. 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 We will continue to follow her along and see her again in a couple of months and see how she is doing with her pumps, conservative efforts, and weight management. She knows to call us in the meantime with any other additional concerns or complaints. Couple Other 03-21-2023 [facility] Evaluation [facility]* Encounter Date Diagnosis Assessment [...] specified soft tissue disorders (ICD-10 - M79.89) Couple Other 03-08-2023 Miscellaneous Notes* Telephone Encounter - Adriana Pereira Pss - 11/16/2022 8:40 AM EST Called Vascular office spoke with Jessy. They have received this referral and have patient scheduledwith Dr Gonzales on 11/23 @ 10:00. Adriana Pereira Pss * Telephone Encounter - Kira Ko [facility] - 11/10/2022 9:38 AM EST Records faxed. * Telephone Encounter - Adriana Pereira Pss - 11/10/2022 8:46 AM EST Janeth: Information ready for you. Adriana Pereira Pss * Telephone Encounter - Carlos Brooks - 11/09/2022 2:44 PM EST Vascular Consult [facility] Previous patient of Dr. Mendez 3 years or more. Janeth/Dudley: Can you please refer patient and follow up? Thanks! Carlos Brooks documented in this encounterParkview Health [facility]03-01-2023 NoteHNO ID: [id number] Author: Wallace Stone MD Service: ? Author Type: Physician Type: Progress Notes Filed: 11/09/2022 2:24 PM Note Text: PATIENT NAME: Harman Mcleod CLINIC NO.: [id number] ATTENDING PHYSICIAN: Wallace Stone MD DATE OF [...] (mg/dL) Date Value 0 (more content not included)...[facility]03-01-2023 History of Present illness Narrative* Wallace Stone MD - 11/09/2022 2:00 PM EST Images from the original note were not included. PATIENT NAME: Harman Mcleod [facility] NO.: [id number] ATTENDING PHYSICIAN: Wallace Stone MD DATE OF [...] Dr. Perry Vulvar high grade dysplasia- Follows Assembler Unit Onc at [place] and next appointment 11/24/2022 [facility] R Leg swelling and pain and h/o PVD- refer to vascular HTN Thank you for the kind referral. If there are any questions and or concerns please do not hesitate to contact me at [phone]. Wallace Stone MD Hematology/Medical Oncology [facility] [place] spent a total of 30 minutes on the date of the service which included preparing to see the patient, axtk-we-mzsa patient care, completing clinical documentation, obtaining and/or reviewing separately obtained history, performing a medically appropriate examination, counseling and educating the pat ient/family/caregiver, and ordering medications, tests, or procedures. CC: MD Mateus Spicer MD documented in this encounterParkview Health [facility]02-08-2023 NoteOPERATIVE NOTE OPERATION DATE: 10/19/2022 PREOPERATIVE DIAGNOSIS: Right breast cancer. POSTOPERATIVE DIAGNOSIS: Right breast cancer. PROCEDURE: Needle localized right breast lumpectomy with sentinel lymph node biopsy. SURGEON: Iliana Gagnon M.D. ANESTHESIA: General laryngeal mask airway. CASE MANAGEMENT ASSISTANT: SADI Hammer ESTIMATED BLOOD LOSS: Less than [...] room in good condition. CC: Mateus Perry M.D.[facility]01-31-2023 NoteEXAMINATION: XR CHEST 2 V HISTORY: Pre-surgery [...] Electronically authenticated by: ALFONSO GEORGE Date: 2022-10-11 12:11[facility]01-13-2023 NoteHNO ID: [id number] Author: Marcin Shah MD Service: ? Author Type: Physician Type: Progress Notes Filed: 2022 6:06 AM Note Text: Radiation Oncology - New Patient/Consult Note PATIENT NAME: Harman Mcleod PATIENT REQUESTING PHYSICIAN: Dr. 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 PATIENT IDENTIFICATION: This patient was seen in the Department of Radiation Oncology at the [facility] with Mracin Shah MD. She was accompanied today by her family. Final recommendations will be communicated back to the requesting physician by way of the shared medical record, or letter to requesting physician via US mail. HISTORY OF PRESENT ILLNESS: Ms. 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 Radiation Oncology - New Patient/Consult Note PATIENT NAME: Harman Mcleod PATIENT Signed: Marcin Shah MD I spent a total of 60 minutes on the date of the service which included preparing to see the patient, jbbj-io-jhfc patient care, and counseling and educating the patient/family/caregiver. This document has been created with the use of voice recognition technology. It may contain inaccuracies, misspellings, inaccurate syntax or inappropriate word context that are a result of the inadequacies/shortcomings of said technology/software. documented in this encounterParkview Health [facility]01-12-2023 NoteHNO ID: [id number] Author: Wallace Stone MD Service: ? Author Type: Physician Type: Progress Notes Filed: 09/22/2022 5:19 PM Note Text: PATIENT NAME: Harman Mcleod CLINIC NO.: [id number] ATTENDING PHYSICIAN: Wallace Stone MD DATE OF [...] score of 1+ and FISH negative at [facility]. This patient was subsequently referred to Dr. Iliana Gagnon for surgical consultation. Patient denies any previous history of abnormal mammograms and or breast biopsy. She has had a recent bone density in [place] and was diagnosed with osteoporosis and started on Prolia as well. Patient has a sister who was diagnosed with breast cancer at the age of 82 and her daughter diagnosed with breast cancer at the age of 37. She quit smoking approximately 4 years ago. 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 She [...] mouth daily at bedtime. Cut in half Mkcsf-1-JSX-EPA-Fish Oil 1,000 mg (120 mg-180 mg) cap [...] 2 (diabetes mellitus, type 2) ([facility]) (more content not included)...[facility]01-12-2023 History of Present illness Narrative* Wallace Stone MD - 09/22/2022 5:10 PM EST Images from the original note were not included. PATIENT NAME: Harman Coronel [facility] NO.: [id number] ATTENDING PHYSICIAN: Wallace Stone MD DATE OF [...] score of 1+ and FISH negative at [facility]. This patient was subsequently referred to Dr. Iliana Gagnon for surgical consultation. Patient denies any previous history of abnormal mammograms and or breast biopsy. She has had a recent bone density in [place] and was diagnosed with osteoporosis and started on Prolia as well. Patient has a sister who was diagnosed with breast cancer at the age of 82 and her daughter diagnosed with breast cancer at the age of 37. She quit smoking approximately 4 years ago. 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 She [...] mouth daily at bedtime. Cut in half Ltfgd-2-NRU-EPA-Fish Oil 1,000 mg (120 mg-180 mg) cap [...] me to participate in [facility], ifthere are any questions or concerns please do not hesitate to contact me at the number below. Wallace Stone M.D. Hematology/Medical Oncology [facility] [phone] CC: MD Mateus Spicer MD I spent a total of 60 minutes on the date of the service which included preparing to see the patient, qgdg-fz-vpoo patient care, completing clinical documentation, obtaining and/or reviewing separately obtained history, performing a medically appropriate examination, counseling and educating the pat ient/family/caregiver, ordering medications, tests, or procedures, and communicating with other HCPs (not separately reported). documented in this encounterParkview Health [facility]01-12-2023 Miscellaneous Notes* Telephone Encounter - Lars [...] involved. Lars Wilkerson RN documented in this encounterParkview Health [facility]12-30-2022 NoteChief Complaint consultation for right breast [...] gms IV prior to OR SCDs Ordered: [facility] External Ambulatory Referral [facility] External Ambulatory Referral 2. Chronic anticoagulation (Z79.01: custodial (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) hold Eliquis 2 days prior to surgery, if ok with Cardiology. 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 Garza. documented in this encounterJOHNSTON [facility]ITALDIV[facility] Phone: 1(640) 975-189310-18-2022 Hospital Discharge instructions* Discharge Instructions* Brody Ken [...] urinate call your doctor [facility] Phone: 1(903) 962-934304-04-2022 History of Present illness Narrative* Brody Ken [...] Plunkett MD - 12/13/2021 2:12 PM EDT Assembler Unit Oncology Attending Note Patient seen and evaluated [...] chart for or 12/13/21 documented in this encounterEasy Pairings Phone: 1(169) 124-357404-04-2022 Evaluation note* Diagnosis Vaginectomy w/ Cysto 12/13/21- Primary Other postprocedural status documented in this encounter [employer] Phone: [phone]) 829-815504-04-2022 Hospital Discharge instructions* Instructions* Brody Ken RN [...] of: May 19, 2021 Content Version: 13.2 [employer]. Care instructions adapted under license by [facility]. If you have questions about a medical condition or this instruction, always ask your healthcare professional. [employer] disclaims any warranty or liability for your [...] urinate call your doctor documented in this [facility] Work Phone: 1(580) 752-729603-28-2022 History of Present illness Narrative* YANA Wallis [...] Disease: Yes, stents x 3, Dr. Keyes ([facility]) Hypertension: yes Active smoker: Quit 2017, [...] pcp potassium 3.3,wbc 12.6 documented in this [facility] Phone: 1([phone] 890-946903-25-2022 Hospital Discharge instructions* Instructions* Yoanna Diaz PA [...] drive you home after your procedure. Your special events driver must be 18 years of age [...] questions, call the Pre-Admission Testing Unit at [phone]. Day of Surgery/Procedure As a patient at [facility] you can expect quality medical and nursing care that is centered on your individual needs. Our goal is to make your surgical experience as comfortableas possible . Directions to the Surgery Center [facility] is located at [address] [place] [address]. Please pull into the Emergency parking lot and stop at the portable sawyer richards. We offer free portable sawyer service for all our surgery patients, if you choose not to have portable sawyer parking we have additional parking across the street.You will enter the facility following the [facility] sign. Please stop at the sanitation officer desk where you will be checked in by the staff. If you have any questions please call [phone]. Transportation after your procedure. You will need a friend or family member to drive you home after your procedure. Your special events driver must be18 years of age or [...] You may shave your face or neck. [place] your teeth but do not swallow water. [...] or the day of surgery, please call [phone], or [phone] documented in this [facility] [employer] Phone: [phone] 376-755610-05-2021 History of Present illness Narrative* Parvin Rogel RN - 06/15/2021 10:[address] Cason updated, pt cleared for phase II * Alla Dickerson DO - 06/15/2021 9:42 AM EDT OB Resident Progress Note Patient may be discharged home once she has met criteria in the PACU. Please perfect serve or page PHOTOGRAPHIC SPOTTER resident listed below with any questions, concerns, or if patient has not met PACU discharge criteria in 2-3 hours. . Please page first. Alla Dickerson DO PHOTOGRAPHIC SPOTTER Resident PGY3 Pager: [phone] [facility], [facility] 06/15/2021, 9:42 AM documented in this Pro[facility] Phone: [phone] 801-509710-04-2021 Hospital Discharge instructions* Instructions* Alla Dickerson DO [...] cleared by your physician documented in this Pro[facility] Phone: [phone]) 173-755409-01-2021 Hospital Discharge instructions* Instructions* Na Cabezas APRN - TRAINING DESIGNER - 05/12/2021 Pre-operative Instructions Please arrive at [...] public transportation ALONE is not acceptable. -Your special events driver must be 18 years of age [...] a patient at [facility] you can expect quality medical and nursing care that is centered on your individual needs. Our goal is to make your surgical experience as comfortableas possible . Directions to the Surgery Center [facility] is located at [address] [place] [address]. Please pull into the Emergency/Surgery Center parking lot and stop at the portable sawyer richards. We offer free portable sawyer service for all our surgery patients, if you choose not to have portable sawyer parking we have additional parking across the [...] pharmacy bottles in a zip lock bag. [place] your teeth but do not swallow water. [...] DAY OF your surgery, you may call [phone] documented in this [facility] Phone: 1(596) 273-704109-01-2021 History of Present illness Narrative* Mandy Baker RN - 05/12/2021 1:30 PM EDT Medical clearance obtained for OR on 05/18/2021. * Na Cabezas APRN - TRAINING DESIGNER - 05/12/2021 1:30 PM EDT Anesthesia Focused [...] Under care of team 05/12/2021 dr Perry [facility]-last visit apr 2021 Under care of team 05/12/2021 [facility] Varicose vein of leg Patient was evaluated in [facility] & anesthesia guidelines were applied. NPO guidelines, medication instructions and scheduled arrival time were reviewed with patient. Anesthesia contacted: Yes I spoke with Dr. Rondon. Patient history and pertinent findings reviewed. Patient with history of CAD, CHF, stress test and cardiac echo (results not in Epic, from outside provider), cardiac stentx 3. Last saw funeral service apprentice in December 2020. On Eliquis and aspirin prescribed from her funeral service apprentice. Medical or cardiac clearance ordered: cardiac FERNY Andres CNP 05/12/21 2:43 PM documented in this encounterEasy Pairings Phone: evaluation + Plan noteGeneral Surgery [place] Evaluation + Plan note Future Appointments Appointment Date:11/08/2022 02:00:00 PM Scheduled Provider:Iliana GAGNON MD Location:[facility] Appointment Type:[address] Surgery [place] Evaluation + Plan note Future Appointments Appointment Date:11/22/2022 01:40:00 PM Scheduled Provider:Iliana GAGNON MD Location:[facility] Appointment Type:[address] Evaluation note* Diagnosis Pre-op chest exam Pre-operative respiratory examination documented in this encounter [facility] [employer] Phone: evaluation note* Diagnosis S/p Partial vaginectomy with Ultrasonic Scalpel 06/15/21- 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, 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 documented in this encounter [facility] [employer] Phone: evaldfmooz note* Diagnosis Pre-op chest exam Pre-operative respiratory examination documented in this encounter [employer] Phone: evalugrbma note* Diagnosis Vaginal dysplasia Dysplasia of vagina S/p Vaginal and Vulvar Biopsies, CO2 laser vaporization of vaginal and vulvar lesions 06/28/22 Other postprocedural status 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, 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 documented in this encounter ENIO SIRIA Blyk Work Phone: evalgemoka note* Diagnosis 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, estrogen receptor positive (HCC)- Primary [facility] Diagnosis 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 breast in female, estrogen receptor positive (HCC)- Primary documented in this [facility]* Diagnosis 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, estrogen receptor positive (HCC)- Primary Claudication in peripheral vascular disease (HCC) Peripheral vascular disease, unspecified documented in this encounter [facility] noteNo assessment information [facility] Work Phone: Evaluation noteNo InformationNort [employer] Other Evalunmwdl note* Diagnosis 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, estrogen receptor positive (HCC)- Primary Rash Rash and other nonspecific skin eruption Other eczema Stage 3a chronic kidney disease (HCC) documented in this encounter [facility]* Diagnosis 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, estrogen receptor positive (HCC)- Primary Stage 3a chronic kidney disease (HCC) documented in this encounter [facility]* Diagnosis Onset Date Resolution Status Altered mental status acute Diabetes mellitus acute Edema of both lower legs acu te Inflammation acute Leg ulcer, left acute Leg wound, right acute Open wound of left thigh acu te Uses walker acute Varicose veins of both legs with edema acute [facility] Work Phone: Evaluation note* Diagnosis Onset Date Resolution Status Altered mental status acute Diabetes mellitus acute Edema of both lower legs acu te Inflammation acute Leg ulcer, left acute Leg wound, right acute Open wound of left thigh acu te PAD (peripheral artery disease) acute Uses walker acute Varicose veins of both legs with edema acute [facility] Work Phone: Evaluation note* Diagnosis Hav (hallux abducto valgus), left- Primary Venous insufficiency Unspecified venous (peripheral) insufficiency Acquired deformity of left toe 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 to underlying condition with diabetic polyneuropathy, 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 terminologist insulin use (CMS/HCC) Pain due to onychomycosis of toenails of both feet documented in this encounter [facility] HealthcareEvaluation note* Diagnosis 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)- Primary Diabetes mellitus due to underlying condition with diabetic polyneuropathy, 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 assisted insulin use (CMS/HCC) Pain due to onychomycosis of toenails of both feet Venous insufficiency Unspecified venous (peripheral) insufficiency Neoplasm of uncertain behavior of skin documented in this encounter [facility] HealthcareHistory general Narrative - Reported* Type Description Date Medical History DIABETES Medical History HTN Medical History ASTHMA Medical History 3 HEART STENT AND 1 LEG Medical History HYPERLIPIDEMIA Medical History HYPOTHYROID Medical History PAD Surgical History STENT PLACEMENTS Surgical History PSEUDO ANURYSM Surgical History BLADDER SUSPENSION Surgical History HYSTERECTOMY Surgical History RLE & RT RENAL DSA'S, ANGIOPLAS TIES & STENTING 04-25-2019 Couple Other History general Narrative - Reported* Type [...] History VAGINAL ABLASION OF CANCER CELL S Couple Other Hospital course Narrative No data available for this section General Surgery [facility] Discharge instructions No data available for this section General Surgery [place] Progress note No data available for this section General [facility] [place] Reason for referral (narrative) Referred by: Iliana GAGNON MD Referred by: Iliana GAGNON MD General Surgery [place] Reason for referral (narrative)* Diagnostic Procedure Only (Routine) - Pending Review Specialty Diagnoses / Procedures Referred By Jacinta fernandez Referred To Contact [facility] Diagnoses 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, estrogen receptor positive (HCC) Procedures MAGNO DIAGNOSTIC BILATERAL DIAGNOSTIC MAMMOGRAPHY COMPUTER-AIDED DETCJ Winnie Guzmán PA-C [address] [place] [address] [place] [address] [facility] [address] [place] [address] Referral ID Status Reason Start Date Expiration Date Visits Requested Visits Authorized [id number] Pending Review Auto-Generat ed Referral 3 07/19/2024 1 1 [facility] for visit Narrative* Auth/Cert Specialty Diagnoses / Procedures Referred By Jacinta fernandez Referred To Contact Diagnoses Vaginal dysplasia VAGINAL DYSPLASIA Procedures HI OFFICE/OUTPT VISIT,PROCEDURE ONLY HI COMPLETE REMOVAL OF VAGINA WALL HI CYSTOURETHROSCOPY CYSTOSCOPY, VAGINECTOMY Emma Garza MD [address] [address], [address] [address] [employer] [address] [place] [address] Referral ID Status Reason Start Date Expiration Date Visits Re quested Visits Authorized [id number] 1 1 [facility] Phone: Summary Purpose Family History No Family History Records Found Relationship Condition Age at Onset Recorded Date/T josephine father Unknown mother Unknown Advance Directives No Advanced Directives Records FoundLatest Code Status on File Code Status Date Activated Date Inactivated Comments Full Code 06/28/2022 6:57 AM Documents on File Type Date Recorded Patient Spray Blender Expl anation Advance Directive(s) 01/16/2017 3:59 PM Documents on File Type Date Recorded Patient Spray Blender Expl anation Advance Directive(s) 01/16/2017 3:59 PM [...] [address] [place] [address] Specialty Diagnoses / Procedures Referred By Contac t Referred To Contact Cardiology Diagnoses Pre-op chest exam Procedures EKG 12 lead Kmimie, Lat[place], PA-C [address] [place] [address] Referral ID Status Reason Start Date Expiration Date Visits Re quested Visits Authorized [id number] Open 11/22/2021 11/22/2022 1 1 Specialty Diagnoses / Procedures Referred By Contac t Referred To Contact Vascular Surgery Diagnoses Claudication in peripheral vascular disease (HCC) Procedures CONSULT TO VASCULAR SURGERY OFFICE/OUTPATIENT [facility] 60-74 MINUTES Wallace Stone MD [address] [place] [address] Referral ID Status Reason Start Date Expiration Date Visits Requested Visits Authorized [id number] Authorized PCP Requested Referral 11/16/2022 11/09/2023 1 1 Specialty Diagnoses / Procedures Referred By Contac t Referred To Contact Dermatology Diagnoses Rash Other eczema Procedures CONSULT TO DERMATOLOGY OFFICE/OUTPATIENT [facility] 60-74 MINUTES Wallace Stone MD [address] [place] [address] Referral ID Status Reason Start Date Expiration Date Visits Requested Visits Authorized [id number] Authorized PCP Requested Referral 02/14/2023 02/14/2024 1 [...] and content) DATE CREATED AUTHOR 02/05/2021 [facility] DATE CREATED AUTHOR AUTHOR'S ORGANIZ ATION 01/22/2023 [facility] DATE CREATED AUTHOR AUTHOR'S ORGANIZ ATION 06/22/2023 [facility] DATE CREATED AUTHOR AUTHOR'S ORGANIZ ATION 06/23/2023 [facility] DATE CREATED AUTHOR AUTHOR'S ORGANIZ ATION 07/13/2023 [facility] DATE CREATED AUTHOR AUTHOR'S ORGANIZ ATION 05/03/2024 [facility] DATE CREATED AUTHOR AUTHOR'S ORGANIZ ATION 09/01/2024 [facility] EPIC DATE CREATED AUTHOR AUTHOR'S ORGANIZ ATION 09/22/2024 [facility] Reason for Visit (unrecogniz ed section and content) Status Reason Specialty Diagnoses / Procedures Re ferred By Contact Referred To Contact Diagnoses 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 Procedures HI REMOVE VAGINA WALL, PARTIAL HI COLPOSCOPY,CERVIX W/ADJ VAGINA PARTICAL VAGINECTOMY WITH ULTRASONIC SCAPEL VAGINAL COLPOSCOPY WITH MICROSCOPE Kin Abarca MD [facility] [facility] [address] [place] [address] [facility] Specialty Diagnoses / Procedures Referred By Contac t Referred To Contact Diagnoses Vaginal dysplasia VAGINAL DYSPLASIA Procedures HI OFFICE/OUTPT VISIT,PROCEDURE ONLY HI DESTRUCT,VAGINAL LESION(S),SIMPLE CO2 LASER VAPORIZATION OF LESIONS (FORT CONF# [id number] - JEREMIAS) Emma Garza MD [address] [facility] [address] [place] [address] [facility] [address] [place] [address] Referral ID Status Reason Start Date Expiration Date Visits Re quested Visits Authorized [id number] 1 1 Reason Comments Care Coordination Surgery [...] 25 g 1 06/28/2022 bacitracin-polymyxin b (POLYSPORIN) [id number] UNIT/GM ointment Apply topically 2 times daily. [...] g 0 06/28/2022 06/28/2022 bacitracin-polymyxin b (POLYSPORIN) 500-76586 UNIT/GM ointment Apply topically 2 times daily. [...] 0915, Pre-op (day of surgery) 09 ([facility] - Prov ider: Jessica Robledo RN)[phone] (NoRateChange [...] Provider Active St art: March 26, 2024 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 Start Date End Date Mateus Perry MD [address] [place] [address] PCP - General Family Medicine 03/04/21 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 Start Date End Date Mateus Perry MD [address] [place] [address] PCP - General Family Medicine 03/04/21 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 Start Date End Date Mateus Perry MD [address] [place] [address] PCP - General Family Medicine 03/04/21 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 Start Date End Date Mateus Perry MD [address] [place] [address] PCP - General Family Medicine 03/04/21 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 Start Date End Date Mateus Perry MD PCP - General Family Medicine 01/05/17 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 Start Date End Date Mateus Perry MD PCP - General Family Medicine 01/05/17 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 Start Date End Date Mateus Perry MD PCP - General Family Medicine 01/05/17 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 Start Date End Date Mateus Perry MD PCP - General Family Medicine 01/05/17 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 Start Date End Date Mateus Perry MD PCP - General Family Medicine 01/05/17 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 Start Date End Date Mateus Perry MD PCP - General Family Medicine 01/05/17 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 Start Date End Date Mateus Perry MD [address] [place] [address] PCP - General Family Medicine 03/04/21 Team Status: Inactive Member Role Status Dates Mateus Perry MD Primary Care Provider Active Christiano Gonzales MD Attending Provider Active 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 Start Date End Date Mateus Perry MD PCP - General Family Medicine 01/05/17 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 Start Date End Date Mateus Perry MD PCP - General Family Medicine 01/05/17 Team Status: Inactive Member Role Status Dates Mateus Perry MD Primary Care Provider Active Start: May 01, 2024 End: May 01, 2024 Christiano Gonzales MD Attending Provider Active Start: May 01, 2024 End: May 01, 2024 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 Start Date End Date Mateus Perry MD [address] [place] [address] PCP - General Family Medicine 02/14/24 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 Start Date End Date Mateus Perry MD [address] [place] [address] PCP - General Family Medicine 02/14/24 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 Start Date End Date Mateus Perry MD [address] [place] [address] PCP - General Family Medicine 02/14/24 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 Start Date End Date Mateus Perry MD [address] [place] [address] PCP - General Family Medicine 02/14/24 Source Comments (unrecognize d section and content) In the event this informatio n is protected by the Federal Confidentiality of Alcohol and Drug Abuse Patient Records regulations: The Federal rules restrict any use of the information to criminally investigate or prosecute any alcohol or drug abuse patient.[facility] the event this information is protected by the Federal Confidentiality of Alcohol and Drug Abuse Patient Records regulations: The Federal rules restrict any use of the information to criminally investigate or prosecute any alcohol or drug abuse patient.[facility] Hospital[facility] the event this information is protected by the Federal Confidentiality of Alcohol and Drug Abuse Patient Records regulations: The Federal rules restrict any use of the information to criminally investigate or prosecute any alcohol or drug abuse patient.[facility] Hospital[facility] the event this information is protected by the Federal Confidentiality of Alcohol and Drug Abuse Patient Records regulations: The Federal rules restrict any use of the information to criminally investigate or prosecute any alcohol or drug abuse patient.[facility] Hospital[facility] the event this information is protected by the Federal Confidentiality of Alcohol and Drug Abuse Patient Records regulations: The Federal rules restrict any use of the information to criminally investigate or prosecute any alcohol or drug abuse patient.[facility] Hospital[facility] the event this information is protected by the Federal Confidentiality of Alcohol and Drug Abuse Patient Records regulations: The Federal rules restrict any use of the information to criminally investigate or prosecute any alcohol or drug abuse patient.[facility] Hospital[facility] the event this information is protected by the Federal Confidentiality of Alcohol and Drug Abuse Patient Records regulations: The Federal rules restrict any use of the information to criminally investigate or prosecute any alcohol or drug abuse patient.[facility] Hospital[facility] the event this information is protected by the Federal Confidentiality of Alcohol and Drug Abuse Patient Records regulations: The Federal rules restrict any use of the information to criminally investigate or prosecute any alcohol or drug abuse patient.[facility] Goals (unrecognized section and content) Goals [...] BE BASED ON THE PRIMARY CLINICAL RECORDS. [facility] [employer] [facility]. provides no warranty or guarantee of the accuracy or completeness of information in this document.
[2024-09-23 08:30] LABS: Basophils Percent Auto 0.5 % (0.2-2.0); Eosinophils Absolute Auto 0.4 10^3/uL (0.0-0.7); Hematocrit 32.2 % (36.0-48.0); Hemoglobin 10.3 g/dL (12.0-16.0); Immature Granulocytes Abs Auto 0.03 10^3/uL (0.00-0.03); Immature Granulocytes Pct Auto 0.4 % (0.0-0.5); Lymphocytes Percent Auto 27.9 % (20.5-60.0); Mean Corpuscular Hemoglobin 30.2 pg (26.7-34.0); Mean Corpuscular Volume 94.4 fL (81.0-99.0); Mean Platelet Volume 8.9 fL (9.5-13.5); Monocytes Absolute Auto 0.6 10^3/uL (0.3-0.8); Monocytes Percent Auto 8.5 % (1.7-12.0); Neutrophils Absolute Auto 4.2 10^3/uL (1.4-6.5); Neutrophils Percent Auto 56.7 % (43.0-75.0); Platelet Count 227 10^3/uL (150-450); Red Blood Count 3.41 10^6/uL (4.20-5.40); Red Cell Distribution Width 14.8 % (11.0-15.0); White Blood Count 7.3 10^3/uL (4.0-11.0)
[2024-09-23 10:30] LABS: Alanine Aminotransferase 15 U/L (14-59); Albumin Globulin Ratio 0.8; Alkaline Phosphatase 82 U/L (46-116); Anion Gap 9.8; Aspartate Amino Transferase 13 U/L (15-37); BUN Creatinine Ratio 18.4; Bilirubin Total 0.5 mg/dL (0.2-1.0); Calcium 9.6 mg/dL (8.5-10.1); Carbon Dioxide 31.6 mmol/L (21.0-32.0); Chloride 103 mmol/L (98-107); Chol HDL Ratio 2.5; Cholesterol 148 mg/dL (<=200); Estimated GFR (African America 50 (>=60 mL/min/1.73m^2); Estimated GFR (Non-African Ame 41 (>=60 mL/min/1.73m^2); Free T3 2.32 pg/mL (2.18-3.98); Globulin 3.8 g/dL; Glucose 140 mg/dL (74-106); HDL Cholesterol 59 mg/dL (40-60); Potassium 3.4 mmol/L (3.5-5.1); Sodium 141 mmol/L (136-145); Thyroid Stimulating Hormone 0.119 uIU/mL (0.358-3.740); Total Protein 6.8 g/dL (6.4-8.2); Triglycerides 152 mg/dL (<=150); VLDL CHOLESTEROL 30.4 mg/dL
[2024-09-23 10:36] LABS: Estimated Average Glucose 137 mg/dL; Glycohemoglobin A1C 6.4 % (4.5-6.2)
== END 2024-09-23 07:59 | disposition home or self-care (01) ==
LOC: LAB 08:01
PROVIDERS: PCP Family Medicine; Visit Provider Family Medicine
DX: E03.9 Hypothyroidism, unspecified (principal); I25.10 Atherosclerotic heart disease of native coronary artery without angina pectoris; K21.9 Gastro-esophageal reflux disease without esophagitis; E78.00 Pure hypercholesterolemia, unspecified; R73.09 Other abnormal glucose; D64.9 Anemia, unspecified; E55.9 Vitamin D deficiency, unspecified; I50.30 Unspecified diastolic (congestive) heart failure; I11.0 Hypertensive heart disease with heart failure
CPT/HCPCS: 36415; 80053; 80061; 82306; 83036; 83540; 83880; 84436; 84443; 84481; 85025

== ENCOUNTER 2025-03-06 08:08 | Outpatient (OUT) | payer MEDICARE, OTHER, SELFPAY ==
--- NOTE | 2025-03-06 08:23 | PM.CN ---
Consult Note: HPI Data of Consult Patient: known to practice within the last 3 years Requesting Physician: Bethanie Thomas NP Primary Care Provider: Gil Blake MD Consult Narrative Reason for consult: low back and BLE pain Narrative: Harman Horta a pleasant 84 year old female presents for evaluation of RA/OA and chronic low back and BLE pain. Notes constant aching with heaviness and weakness to BLE increasing over the last 8 months with 1 fall without injury. Pain today 5-6 aching, increasing to 10/10 with standing, walking, activity, ADLs, and sleeping. utilizing tylenol arthritis and tramadol 50mg TID PRN moderate to severe pain with benefit without side effects. Has completed OT/PT in the last 1 year without improvement. [employer] is requesting we take over her chronic opioids to manage her pain, she cannot take NSAIDs due to CKD and eliquis. cc:: CC: Bethanie Thomas NP Review of Systems ROS Status of ROS 10 or more systems reviewed and unremarkable except as noted in history and below Musculoskeletal Reports: back pain, extremity pain and joint pain PFSH [facility] Medical History (Updated 03/06/25 @ 08:53 by Bethanie Thomas NP) Acute kidney injury superimposed on chronic kidney disease ?N17.9 - Acute kidney failure, unspecified (ICD-10) ?N18.9 - Chronic kidney disease, unspecified (ICD-10) Cellulitis of arm, left ?L03.114 - Cellulitis of left upper limb (ICD-10) Defibrillator discharge ?Z45.02 - Encounter for adjustment and management of automatic implantable cardiac defibrillator (ICD-10) Lower gastrointestinal hemorrhage ?K92.2 - Gastrointestinal hemorrhage, unspecified (ICD-10) Anemia in stage 4 chronic kidney disease ?N18.4 - Chronic kidney disease, stage 4 (severe) (ICD-10) ?D63.1 - Anemia in chronic kidney disease (ICD-10) Abscess, gluteal, right ?L02.31 - Cutaneous abscess of buttock (ICD-10) Morbid obesity ?E66.01 - Morbid (severe) obesity due to excess calories (ICD-10) History of tobacco abuse ?Z87.891 - Personal history of nicotine dependence (ICD-10) Acute renal failure ?N17.9 - Acute kidney failure, unspecified (ICD-10) Elevated diaphragm ?J98.6 - Disorders of diaphragm (ICD-10) Pleural effusion ?J90 - Pleural effusion, not elsewhere classified (ICD-10) COPD with acute exacerbation ?J44.1 - Chronic obstructive pulmonary disease with (acute) exacerbation (ICD-10) Acute hypoxic respiratory failure ?J96.01 - Acute respiratory failure with hypoxia (ICD-10) Acute on chronic diastolic CHF (congestive heart failure) ?I50.33 - Acute on chronic diastolic (congestive) heart failure (ICD-10) Type 2 diabetes mellitus ?E11.9 - Type 2 diabetes mellitus without complications (ICD-10) Hypoxemia ?R09.02 - Hypoxemia (ICD-10) Abscess ?L02.91 - Cutaneous abscess, unspecified (ICD-10) Abscess ?L02.91 - Cutaneous abscess, unspecified (ICD-10) Cellulitis and abscess of left leg ?L03.116 - Cellulitis of left lower limb (ICD-10) ?L02.416 - Cutaneous abscess of left lower limb (ICD-10) Hyperkalemia ?E87.5 - Hyperkalemia (ICD-10) Moderate protein-calorie malnutrition ?E44.0 - Moderate protein-calorie malnutrition (ICD-10) CHF (congestive heart failure) ?I50.9 - Heart failure, unspecified (ICD-10) Hypoxia ?R09.02 - Hypoxemia (ICD-10) Acute infective exacerbation of chronic obstructive airway disease ?J44.1 - Chronic obstructive pulmonary disease with (acute) exacerbation (ICD-10) Weakness ?R53.1 - Weakness (ICD-10) Acute right hip pain ?M25.551 - Pain in right hip (ICD-10) Rheumatoid arthritis flare ?M06.9 - Rheumatoid arthritis, unspecified (ICD-10) Difficulty in walking ?R26.2 - Difficulty in walking, not elsewhere classified (ICD-10) Arthralgia ?M25.50 - Pain in unspecified joint (ICD-10) CAD, multiple vessel ?I25.10 - Atherosclerotic heart disease of telida coronary artery without angina pectoris (ICD-10) Atrial fibrillation ?I48.91 - Unspecified atrial fibrillation (ICD-10) COPD (chronic obstructive pulmonary disease) ?J44.9 - Chronic obstructive pulmonary disease, unspecified (ICD-10) Gouty arthritis ?M10.9 - Gout, unspecified (ICD-10) Hypothyroidism (acquired) ?E03.9 - Hypothyroidism, unspecified (ICD-10) Hypokalemia ?E87.6 - Hypokalemia (ICD-10) Iron deficiency anemia ?D50.9 - Iron deficiency anemia, unspecified (ICD-10) Surgical History (Updated 09/05/24 @ 20:41 by Zena Bhakta) History of cardiac defibrillator placement ?Z95.810 - Presence of automatic (implantable) cardiac defibrillator (ICD-10) H/O right mastectomy ?Z90.11 - Acquired absence of right breast and nipple (ICD-10) H/O: hysterectomy ?Z90.710 - Acquired absence of both cervix and uterus (ICD-10) History of appendectomy ?Z90.49 - Acquired absence of other specified parts of digestive tract (ICD-10) H/O heart artery stent ?Z95.5 - Presence of coronary angioplasty implant and graft (ICD-10) Family History (Updated 10/14/23 @ 23:05 by Zena Bhakta) Father Family history of CHF (congestive heart failure) Family history of cancer Family history of hypertension Sister Family history of cancer Family history of diabetes mellitus Mother Family history of diabetes mellitus Family history of hypertension Social History (Updated 02/13/24 @ 18:21 by Kira Meza LPN) Within the past year, how often did you have a drink containing alcohol: never Within the past year, how often did you have six or more drinks on one occasion: never Score interpretation: A score less than 3 is consistent with normal alcohol consumption. Smoking status: Former smoker Non-prescribed substance use: denies use Previous occupational history: retired Highest level of school completed/degree received: high school graduate Are you now , , , , never or living with a partner: In a typical week, how many times do you talk on the telephone with family, friends, or neighbors: 3 or more times per week How often do you get together with friends or relatives: 3 or more times per week How often do you attend nondenominational or jainism services: 4 or more times per year Little interest or pleasure in doing things: not at all Feeling down, depressed, or hopeless: not at all Feel stressed/tense/nervous/anxious/difficulty sleeping: not at all Do you think of yourself as: straight/heterosexual Gender Identity: female Meds Home Medications and Allergies Home Medications ?Medication ?Instructions ?Recorded ?Confirmed ?Type albuterol sulfate 2.5 mg/3 mL 2.5 mg inhalation Q4H PRN 03/04/23 09/06/24 History (0.083 %) solution for nebulization shortness of breath or wheezing anastrozole 1 mg tablet 1 mg PO DAILY 03/04/23 09/05/24 History aspirin 81 mg tablet,delayed 81 mg PO DAILY 03/04/23 09/05/24 History release (Adult Low Dose Aspirin) furosemide 40 mg tablet 40 mg PO DAILY 03/04/23 09/06/24 History isosorbide mononitrate 60 mg 60 mg PO DAILY 03/04/23 09/05/24 History tablet,extended release 24 hr levothyroxine 112 mcg tablet 112 mcg PO .ACB 03/04/23 09/05/24 History liothyronine 5 mcg tablet 10 mcg PO .ACB 03/04/23 09/05/24 History metoprolol succinate 200 mg 100 mg PO DAILY 03/04/23 09/06/24 History tablet,extended release 24 hr sucralfate 1 gram tablet 1 g PO ACHS 03/04/23 09/05/24 History febuxostat 40 mg tablet 40 mg PO DAILY 08/20/23 09/05/24 History insulin glargine 100 unit/mL 16 unit subcut QAM 10/14/23 09/05/24 History subcutaneous solution (Lantus U-100 Insulin) insulin aspart U-100 100 unit/mL 3 - 15 unit subcut ACHS 10/17/23 09/05/24 History (3 mL) subcutaneous pen (Novolog FlexPen U-100 Insulin aspart) apixaban 5 mg tablet (Eliquis) 2.5 mg (1/2 x 5 mg) PO BID #60 tabs 02/19/24 09/05/24 Rx ferrous sulfate 325 mg (65 mg 325 mg PO BID 06/26/24 09/05/24 History iron) tablet metformin 500 mg tablet 500 mg PO BIDWM 06/26/24 09/05/24 History simvastatin 40 mg tablet 40 mg PO .QHS 06/26/24 09/05/24 History pantoprazole 40 mg tablet,delayed 40 mg PO BID #60 tabs 06/27/24 09/05/24 Rx release (Protonix) amoxicillin 875 mg-potassium 1 tab PO Q12H #20 tabs 09/06/24 Rx clavulanate 125 mg tablet cholecalciferol (vitamin D3) 125 125 mcg PO .qhs 09/06/24 09/06/24 History mcg (5,000 unit) tablet (Vitamin D3) hydralazine 50 mg tablet 50 mg PO TID PRN hypertension 09/06/24 09/06/24 History levofloxacin 500 mg tablet 500 mg PO DAILY 7 days #7 tabs 09/06/24 Rx nystatin 100,000 unit/gram topical 1 applic topical BID 09/06/24 09/06/24 History powder (Klayesta) omega [id number]-vkt-fish oil 1,200 mg 1 cap PO BID 09/06/24 09/06/24 History (144 mg-216 mg) capsule (Fish Oil) Allergies Allergy/AdvReac Type Severity Reaction Status Date / Time oxycodone AdvReac Severe nausea and Verified 09/05/24 16:39 vomiting tramadol AdvReac Severe Vomiting Verified 09/05/24 16:39 cefdinir AdvReac Unknown Vomiting Verified 09/05/24 16:39 ciprofloxacin AdvReac Unknown Vomiting Verified 09/05/24 16:39 Exam Constitutional Documenting provider has reviewed patient's vital signs: yes Common normals: no apparent distress, oriented x3, healthy appearing, alert and well nourished General appearance: cooperative HENMO Common normals: normocephalic, hearing grossly normal bilaterally and moist oral mucous membranes Head and scalp: normocephalic Eye Common normals: PERRL Pupil: PERRL Neck & C-Spine Common normals: full ROM General: normal visual inspection Chest Common normals: inspection of chest normal Respiratory Common normals: normal respiratory effort, no retractions and no use of accessory muscles Back & Pelvis Lumbar spine/lower back: ROM limited, pain with ROM, lumbar spinal tenderness and straight leg raise positive left Sacroiliac joints: SI joint(s) abnormal Other: positive facet loading bilateral sij positive chelsea(patricks), gaenslens, thigh thrust, compression test strength 4/5 in LLE and 5/5 in RLE decreased sensation left L4,5,S1 Neuro Common normals: oriented x3 Sensorium/orientation: alert Psych Common normals: mental status grossly normal, thought process normal, cooperative, affect normal, speech normal and activity/motor behavior normal Speech: normal speech Thought process: normal thought process Results Additional Findings Additional findings: If on a controlled substance or opioids, I have checked an [place] report on this patient and there are no aberrancies noted in the prescribing history.??If on a controlled substance or opioid a drug screen was completed and reviewed within the last year, and if there has not been a drug screen completed we ordered one today to monitor higher risk, state monitored pain medication use. As part of providing excellent, safe, comprehensive care, the following was completed at our patient's visit: 1. A medication reconciliation and review to ensure accurate knowledge of current/active medications, including asking our patients to inform us about any [id number] medications or herbal remedies/nutritional supplements/alternative remedies. 2. A review to specifically ensure our patients have had annual screening for screening for depression, screening for tobacco use, and screening for unhealthy alcohol use. For concerning screenings had a discussion with the patient, provided patient education, and recommended follow-up with primary care provider when appropriate. If patient noted with a risk of falling, they received education on strength, gait, and balance training to prevent future risk of falling. Portions of this note may have been carried over from the previous visit and updated as appropriate. Please note this office utilizes paper charting in addition to the electronic medical record. A list of current medications, vitals, and PMH is available there as the clinical staff outside of myself do not have access to Clip charting during the clinic day operations. As part of providing quality comprehensive care the current medications, vitals, and PMH were reviewed in the paper chart. Assessment and Plan Assessment and Plan (1) Lumbar stenosis with neurogenic claudication: (2) Lumbar spondylosis: (3) Chronic use of opiate drug for therapeutic purpose: (4) Sacroiliitis: (5) Rheumatoid arthritis: Plan 84 year old female presents for evaluation of chronic low back and BLE pain with increased pain over the last 8 months has failed to benefit from heat, ice, tylenol, PT/OT > 6 weeks. utilizes walker ongoing. long conversation today regarding risks vs benefits of medication management, she is high risk for accidental overdose based on PMH. pt finds moderate pain relief for 6 hours with tramadol without side effects. will continue tramadol 50mg TID PRN moderate to severe pain. narcan discussed and prescribed. start gabapentin 100mg BID, risks vs benefits reviewed. update lumbar xray with flexion and lumbar CT without contrast to assess lumbar spondylosis and lumbar stenosis with NC. pt has a defibrillator and cannot undergo MRI. pt requesting valium vs IVCS for CT, we discussed the risks vs benefits and will proceed with 10mg po valium 30-60mins prior to CT and she is not to utilize tramadol within 4 hours of taking the valium. f/u to review imaging
== END 2025-03-06 08:09 | disposition home or self-care (01) ==
PROVIDERS: PCP Family Medicine; Visit Provider Nurse Practitioner
DX: M48.062 Spinal stenosis, lumbar region with neurogenic claudication (principal); M47.816 Spondylosis without myelopathy or radiculopathy, lumbar region; Z79.891 Long term (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 opiate analgesic; M46.1 Sacroiliitis, not elsewhere classified; M06.9 Rheumatoid arthritis, unspecified
CPT/HCPCS: G0463

== ENCOUNTER 2025-03-10 12:23 | Outpatient (OUT) | payer MEDICARE, OTHER, SELFPAY ==
--- NOTE | 2025-03-10 12:31 | XR_ITS ---
[facility] [address] Patient Name: OSCAR MCLEOD MRN: [id number] date: 1940 Sex: F Assigned Patient Location: [facility] Current Patient Location: [facility] Accession/Order Number: [id number] Exam Date: 03/10/2025 13:42 Report Date: 03/10/2025 13:46 At the request of: KASSANDRA SCRUGGS NP Procedure: XR lumbar spine 6V w bending LUMBAR SPINE - 6 views CLINICAL HISTORY: Spinal stenosis, lumbar region with neurogenic claudication COMPARISON: Acute low back pain for 3 weeks. Radiating down both legs. FINDINGS: Vertebral body heights appear maintained. Diffuse moderate degenerative disease with endplate and facet joint degenerative changes. There is 5 mm of anterolisthesis of L3 on L4 and L4 on L5. No pathological motion on flexion or extension views. XR/XR lumbar spine 6V w bending IMPRESSION: DIFFUSE MODERATE DEGENERATIVE DISC DISEASE. Impression dictated by: Butch Quinones Jr., DMedardoOMedardo 03/10/2025 1:46 PM Dictation Location: [employer] Electronically authenticated by: [id number] Y Date: 03/10/2025 13:46
--- NOTE | 2025-03-10 12:55 | CT_ITS ---
[facility] [place] [id number] Patient Name: OSCAR MCLEOD MRN: [id number] date: 1940 Sex: F Assigned Patient Location: [facility] Current Patient Location: [facility] Accession/Order Number: [id number] Exam Date: 03/10/2025 13:07 Report Date: 03/10/2025 13:13 At the request of: KASSANDRA SCRUGGS NP Procedure: CT lumbar spine wo con CT lumbar spine wo con 03/10/2025 12:55 PM History:Acute low back pain for 3 weeks. Pain radiates to both legs. TECHNIQUE: Multi detector CT axial slices of the lumbar spine were obtained without IV contrast. Volumetric acquisition sagittal, coronal, and 3-D reconstructions were performed and reviewed on a separate workstation. CT was performed with one or more of the following dose reduction techniques: Automated exposure control, adjustment of the mA and/or kV according to patient size, or use of iterative reconstruction technique. COMPARISON: None FINDINGS: No fracture. Vertebral body heights appear maintained. Moderate diffuse degenerative disease with endplate and facet joint degenerative changes as well as approximately 5 mm of anterolisthesis of L3 on L4 and approximately 5 mm of anterolisthesis of L4 on L5. Transverse processes appear intact. No paraspinal mass. SI joints demonstrate degenerative change. Visualized retroperitoneum demonstrates no acute process. CT/CT lumbar spine wo con IMPRESSION: Diffuse moderate degenerative disc disease. No acute bony process is noted. Impression dictated by: Butch Quinones Jr., D.O. 03/10/2025 1:13 PM Dictation Location: [employer] Electronically authenticated by: [id number] Y Date: 03/10/2025 13:13
== END 2025-03-10 12:24 | disposition home or self-care (01) ==
LOC: RAD 12:26
PROVIDERS: PCP Family Medicine; Visit Provider Nurse Practitioner
DX: M51.369 Other intervertebral disc degeneration, lumbar region without mention of lumbar back pain or lower extremity pain (principal)
CPT/HCPCS: 72114; 72131

== ENCOUNTER 2025-03-19 11:32 | Outpatient (OUT) | payer MEDICARE, OTHER, SELFPAY ==
[2025-03-19 12:18] LABS: Alanine Aminotransferase 17 U/L (14-59); Albumin Globulin Ratio 0.7; Albumin Level 2.9 g/dL (3.4-5.0); Alkaline Phosphatase 116 U/L (46-116); Amylase 68 U/L (25-115); Anion Gap 14.0; Aspartate Amino Transferase 21 U/L (15-37); Blood Urea Nitrogen 27.0 mg/dL (7.0-18.0); Calcium 9.1 mg/dL (8.5-10.1); Carbon Dioxide 32.0 mmol/L (21.0-32.0); Chloride 101 mmol/L (98-107); Estimated GFR (African America 33 (>=60 mL/min/1.73m^2); Estimated GFR (Non-African Ame 27 (>=60 mL/min/1.73m^2); Globulin 4.1 g/dL; Glucose 129 mg/dL (74-106); Lipase 95.0 U/L (16.0-77.0); Potassium 3.0 mmol/L (3.5-5.1); Sodium 144 mmol/L (136-145); Total Protein 7.0 g/dL (6.4-8.2)
[2025-03-19 12:22] LABS: Hematocrit 29.7 % (36.0-48.0); Hemoglobin 9.8 g/dL (12.0-16.0); Immature Granulocytes Abs Auto 0.07 10^3/uL (0.00-0.03); Immature Granulocytes Pct Auto 0.8 % (0.0-0.5); Lymphocytes Absolute Auto 1.9 10^3/uL (1.2-3.8); Mean Corpuscular HGB Conc 33.0 g/dL (29.9-35.2); Mean Corpuscular Hemoglobin 31.9 pg (26.7-34.0); Mean Corpuscular Volume 96.7 fL (81.0-99.0); Platelet Count 236 10^3/uL (150-450); Red Blood Count 3.07 10^6/uL (4.20-5.40); White Blood Count 8.7 10^3/uL (4.0-11.0)
== END 2025-03-19 11:33 | disposition home or self-care (01) ==
LOC: LAB 11:37
PROVIDERS: PCP Family Medicine; Visit Provider Family Medicine
DX: K52.9 Noninfective gastroenteritis and colitis, unspecified (principal)
CPT/HCPCS: 36415; 80053; 82150; 83690; 85025

== ENCOUNTER 2025-03-19 14:32 | Inpatient (IN) | payer MEDICARE, OTHER, SELFPAY ==
--- OUTSIDE RECORDS SUMMARY | 2010-06-14 20:00 | XMS_ITS | Continuity of Care Document ---
Author Organization [facility] Address [address] [place] [address] Phone Care Team Providers Care Mechanic Foreman Name Role Phone Emilio Barrera Unavailable Unavailable Procedures Procedure Date FLU VACC PRSV FREE INC ANTIG Admin influenza virus vac PNEUMOCOCCAL VACCINE Admin pneumococcal vaccine Advance Directives Directive Yes / No Effective Date File Name No Information Encounters Encounter Description Practice Location Reason(s) For Visit Diagnoses Date Provider Providers Copied on Encounter [facility], [address], [place], [id number], tel:[phone] [facility] No Information Michael SILVA Emilio. [address], [place], [id number], [place]. tel:[phone] Family History Family Member Type Diagnosis Age At Onset No Information Payers Payer name Insurance type Covered republican ID Authoriza tion(s) Medicare PPS MB [id number] Social History Type Description Quantity Date Captured Comments Sex Female Smoking Status No Information Chief Complaint And Reason For Visit No Information Reason For Referral Reason For Referral No Information History Of Present Illness Encounter Date Complaint History Of Prese nt Illness No Information Functional Status Date Functional Assessmen t No Information Instructions Date Instruction Additional Infor mation No Information Assessments Type Assessment Date No Information Patient Care Teams Name Effective Dates (start - stop) Status Members No Information
--- OUTSIDE RECORDS SUMMARY | 2025-03-07 09:45 | XMS_ITS ---
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 Role Phone Rony Blake Primary Care Provider [phone] Allergies Allergen (clinical drug ingredient) Drug/Non Drug Allergy documented on EMR Reaction Allergy Type Onset Date Status bee pollen Bee Pollen Unknown Drug Allergy Activ e ciprofloxacin Cipro Unknown Drug Allergy Act everett levofloxacin levoFLOXacin ankle pain Drug Allergy Active acetaminophen / oxycodone Percocet Unknown Drug Allergy Active cefdinir Cefdinir nausea and vomiting Drug Allergy Active Substance with sulfonamide structure and antibacterial mechanism of action (substance) Sulfa Antibiotics rash Drug Allergy Active tramadol Tramadol hallucinating Drug Allergy Act everett Results Component Value Reference Range Notes UA DIP NONAUTO WO MICRO (810 02) - IN OFFICE Reviewed date:03/10/2025 09:07:23 PM Interpretation: Performing Lab: Notes/Report: COLOR pale yellow CLARITY CLEAR GLUCOSE NEG BILIRUBIN NEG KETONE NEG SPECIFIC GRAVITY 1.010 BLOOD NEG PH 7 PROTEIN NEG UROBILINOGEN NEG NITRITE NEG LEUKOCYTE ESTERASE TRACE REASON FOR VISIT UTI- feels like has to go to the bathroom but cant go when she tries, Sugars have been down- running 59 now- was given a sugar pill- dry heaves- has taken Zofran but not helping to be able to eat- Granddaughter retook her BS and is now up to 70, Not eating anything, not drinking much, not urination Medications Medication SIG (Take, Route, Frequency, Duration) Notes Start Date End Date Status Simvastatin 40 MG 1 tablet in the evening Orally Once a day for 90 days Active Sucralfate 1 GM TAKE 1 TABLET BY MOUTH FOUR TIMES A DAY *BEFORE MEALS AND AT BEDTIME* for 30 Active Tylenol 325 MG 2 tablet as needed Orally every 4 hrs Active Ventolin HFA 108 (90 Base) MCG/ACT 2 puff as needed Inhalation every 4 hrs PRN 07/15/2024 Active Vitamin D3 125 MCG (5000 UT) 1 capsule Orally Once a day 02/08/2024 Active Protonix 20 MG 1 tablet 1/2 to 1 hour before morning meal Orally BID Active Metoprolol Succinate ER 200 MG 1/2 tablet Orally Once a day for 90 days Active predniSONE 5 MG 1 tablet with food or milk Orally Once a day for 5 days 11/05/2024 Active metFORMIN HCl 500 MG TAKE 1 TABLET BY MOUTH TWICE A DAY for 90 Active Liothyronine Sodium 5 MCG 2 tablet on an empty stomach Orally Once a day for 90 days Active HYDROcodone-Acetamino phen 5-325 MG 1 tablet Orally qid - prn for 7 days M54.50 PRN 02/12/2024 Active Isosorbide Mononitrate ER 60 MG TAKE 1 TABLET BY MOUTH EVERY DAY for 90 Active Ketoconazole 2 % 1 application Externally Twice a day for 14 PRN 02/08/2024 Active Leflunomide 20 MG 1 tablet Orally Once a day 12/18/2024 Active Levothyroxine Sodium 112 MCG TAKE 1 TABLET BY MOUTH EVERY DAY for 90 days Active HumaLOG 100 UNIT/ML as directed Injection sliding scale PRN 02/08/2024 Active hydrALAZINE HCl 100 MG 1 tablet with food Orally TID if SBP>130 for 90 days PRN Active Gabapentin 100 MG 1 capsule at bedtime Orally Once a day Active FreeStyle Sami 2 Sensor - Dx: E11.9 apply 1 sensor every 2 week for 30 days Active Furosemide 40 MG 1 tablet Orally twice a day, every other day for 90 days Active Eliquis 5 MG 1/2 tablet Orally Twice a day Active Febuxostat 40 MG 1 tablet Orally Once a day 12/18/2024 Active Ferrous Sulfate 325 (65 Fe) MG TAKE 1 TABLET BY MOUTH TWICE A DAY FOR 30 DAYS for 90 Active Fish Oil 1000 MG 1 capsule Orally twice a day 02/08/2024 Active FreeStyle Sami 2 Mcdonough - Use reader multiple times daily to check glucose DX E11.9 for 730 days Patients reader is not reading accurately even with new patch applied- please send new reader. Thank You 05/01/2024 Active Aspirin 81 81 MG 1 tablet Orally Once a day Active Basaglar KwikPen 100 UNIT/ML 10 units daily Subcutaneous daily for 30 days DX E11.9 01/13/2025 Active BD Pen Needle Mini U/F 31G X 5 MM USE 1 PEN NEEDLE VIA PEN FOUR TIMES DAILY TO INJECT INSULIN DX E11.9 90 DAYS for 90 Active Albuterol Sulfate (2.5 MG/3ML) 0.083% 3 mL as needed Inhalation every 6 hrs for 30 days Dx: J44.9 Active Anastrozole 1 MG 1 tablet Orally Once a day Active Amoxicillin-Pot Clavulanate 875-125 MG 1 tablet Orally every 12 hrs for 10 days 03/07/2025 Active Pyridium 200 MG 1 tablet after meals Orally Three times a day for 2 days 03/07/2025 Active traMADol HCl 50 MG 2 tablet Orally twice daily 03/07/2025 Active Ondansetron 4 MG 1 tablet on the tongue and allow to dissolve Orally qid 03/07/2025 Active Social History Tobacco Use: Social History Observation Description Date Details (start date - stop date) Former Smoker 09/11/1958 - 09/11/2018 Tobacco Use/Smoking Question Answer Notes Patient is a former smoker When did you start smoking? 09/11/1958 When did you stop smoking? 09/11/2018 How long has it been since you last smoked? 1-5 years Additional Findings: Tobacco Non-User Current no n-smoker Vital Signs Weight 130.0 lbs 03/07/2025 Height 61 in 03/07/2025 Blood pressure systolic 132 mm Hg 03/07/20 25 Blood pressure diastolic 60 mm Hg 025 BMI 24.56 kg/m2 03/07/2025 Procedures Procedure Date Ordered Date Performed Result Body Sit e EAR IRRIGATION - performed 03/07/2025 N/A Encounters Encounter Location Date Provider Diagnosis [facility] [address] [place] [address] 03/07/2025 Rony Hoy UTI (urinary tract infection) N39.0 and Bilateral impacted cerumen H61.23 Assessments Encounter Date Diagnosis (ICD Code) Assessment Notes Treatment Notes Treatment Clinical Notes Section Notes 03/07/2025 UTI (urinary tract infection) (ICD-10 - N39.0) 03/07/2025 Bilateral impacted cerumen (ICD-10 - H61.23) Plan Of Treatment Medication Medication Name Sig Start Date Stop Date Notes Amoxicillin-Pot Clavulanate 875-125 MG 1 tablet Orally every 12 hrs for 10 days 03/07/2025 Pyridium 200 MG 1 tablet after meals Orally Three times a day for 2 days 03/07/2025 Ondansetron 4 MG 1 tablet on the tong ue and allow to dissolve Orally qid 03/07/2025 Pending Test Test Name Order Date EAR IRRIGATION - performed 03/07/2025 Progress Notes * MCLEODHarman LDOB: [birth year] (84 yo F)Acc No.[id number]:03/07/2025 Progress Note Patient: Harman RICHARDS Provider: Alexis Blake ([facility])MD :1940 A ge:84 Y S ex:Female Date:03/07/2025 Address:[address] [place], [place] [id number] Check In:01:42 PM ESTCheck O ut:03:00 PM EST Subjective: * Chief Complaints: * U TI- feels like has to go to the bathroom but cant go when she triesSugars have been down- running 59 now- was given a sugar pill- dry heaves- has taken Zofran but not helping to be able to eat- Granddaughter retook her BS and is now up to 70Not eating anything, not drinking much, not urination * HPI: G eneral: Having morning sickness. 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) Modified On:12/30/2022U Status:confirmed I10 Hypertension Modified On:11/20/2023U Status:confirmed J44.9 Chronic obstructive pulmonary disease (COPD) Modified On:07/17/2023U Status:confirmed I25.10 CAD (coronary artery disease) Modified On:07/17/2023/U Status:confirmed M85.80 Osteopenia Modified On:12/30/2022 Status:confirmed I48.0 Paroxysmal atrial fi brillation Modified On:12/30/2022 Status:confirmed I50.41 Acute combined systo lic (congestive) and diastolic (congestive) heart failure Modified On:11/20/2023 Status:confirmed E78.1 Hypertriglyceridemia Modified On:07/17/2023 Status:confirmed R60.0 Edema leg Modified On:12/30/2022 Status:confirmed K62.5 Rectal bleeding Modified On:12/30/2022 Status:confirmed M70.22 Olecranon bursitis o f left elbow Modified On:12/30/2022 Status:confirmed I50.32 Chronic diastolic he art failure Modified On:12/30/2022 Status:confirmed K57.30 Colon, diverticulosi s Modified On:12/30/2022 Status:confirmed J45.909 AB (asthmatic bronch itis) Modified On:12/30/2022 Status:confirmed I73.89 Other peripheral vas cular disease Modified On:12/30/2022 Status:confirmed I70.209 Atherosclerosis of n ative artery of extremity Modified On:12/30/2022 Status:confirmed J44.9 Chronic airway obstr uction Modified On:12/30/2022 Status:confirmed 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 Modified On:12/30/2022 Status:confirmed K21.9 Gastro-esophageal re flux disease Modified On:12/30/2022 Status:confirmed N90.89 Vulval lesion Modified On:12/30/2022 Status:confirmed H81.399 Vertigo, peripheral Modified On:12/30/2022 Status:confirmed E78.00 Pure hypercholestero lemia, unspecified Modified On:12/30/2022 Status:confirmed 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, right Modified On:12/30/2022 Status:confirmed E11.9 Controlled type 2 di abetes mellitus Modified On:11/20/2023 Status:confirmed A63.0 Human papillomavirus Modified On:12/30/2022 Status:confirmed 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 Modified On:12/30/2022 Status:confirmed M50.33 Other cervical disc degeneration, cervicothoracic region Modified On:12/30/2022 Status:confirmed N18.2 Chronic kidney disea se, stage 2 (mild) Modified On:07/17/2023 Status:confirmed 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, unspecified Modified On:03/08/2023 Status:confirmed M19.90 Unspecified osteoart hritis, unspecified site Modified On:05/17/2023 Status:confirmed M10.09 Idiopathic gout, mul tiple sites Modified On:03/16/2023 Status:confirmed R00.0 Tachycardia Modified On:08/24/2023 Status:confirmed M06.9 RA (rheumatoid arthr itis) Modified On:09/25/2023 Status:confirmed E11.9 Diabetes mellitus Modified On:11/01/2023 Status:confirmed D50.9 Anemia, iron deficie ncy Modified On:11/20/2023 Status:confirmed N18.2 Chronic kidney disea se (CKD) stage G2/A1, mildly decreased glomerular filtration rate (GFR) between 60-89 mL/min/1.73 square meter and albuminuria creatinine ratio less than 30 mg/g Modified On:09/25/2023 Status:confirmed E66.01 Morbid obesity Modified On:09/25/2023 Status:confirmed M06.9 Rheumatoid arthritis flare Modified On:10/02/2023 Status:confirmed E11.9 Type 2 diabetes yolande itus Modified On:10/02/2023 Status:confirmed D50.9 Iron deficiency anem ia Modified On:10/02/2023 Status:confirmed I10 HTN (hypertension) Modified On:10/10/2023 Status:confirmed Z79.4 Long-term insulin us e Modified On:11/01/2023 Status:confirmed J44.1 Chronic obstructive pulmonary disease with (acute) exacerbation Modified On:06/18/2024W/U Status:confirmed I50.33 Acute on chronic baljit stolic (congestive) heart failure Modified On:02/27/2024U Status:confirmed I50.9 Chronic CHF Modified On:03/13/2024U Status:confirmed D69.6 Acquired thrombocyto penia Modified On:03/13/2024U Status:confirmed E43 Severe protein-calor ie malnutrition Modified On:03/13/2024U Status:confirmed R32 Urinary incontinence Modified On:04/16/2024U Status:confirmed K92.2 GI bleed Modified On:06/28/2024U Status:confirmed N18.4 Acute worsening of s tage 4 chronic kidney disease Modified On:07/19/2024 Status:confirmed D63.1 Anemia of renal dise ase Modified On:07/19/2024 Status:confirmed E11.9 Diabetes Modified On:07/19/2024U Status:confirmed E44.0 Moderate protein mal nutrition Modified On:07/19/2024U Status:confirmed E03.9 Hypothyroid Modified On:09/19/2024U Status:confirmed T14.8XXA Bruising Modified On:09/27/2024U Status:confirmed I48.91 Atrial fibrillation Modified On:09/30/2024U Status:confirmed N18.9 Chronic kidney disea se Modified On:10/17/2024U Status:confirmed K21.9 GERD (gastroesophage al reflux disease) Modified On:10/17/2024U Status:confirmed E03.9 Acquired hypothyroid ism Modified On:10/17/2024U Status:confirmed J18.9 Right lower lobe pne umonia Modified On:11/05/2024U Status:confirmed * Medical History: * Surgical History: a ppendix stent in heart stent in kidney stent in right leg lumpectomy I and D Right Glut Abcess Defib placement 07/04 * Hospitalization/Major Diagno stic Procedure: G out/Arthritis/ Bronchitis 2022 * Family History: F ather: , Heart Attack, stroke, diagnosed with Unspecified essential hypertension.?Mother: , Heart Attack, stroke, diagnosed with Diabetes mellitus without mention of complication, type II or unspecified type, not stated as uncontrolled, Unspecified essential hypertension. S ister(s): breast cancer, diagnosed with Diabetes mellitus without mention of complication, type II or unspecified type, not stated as uncontrolled, Unspecified essential hypertension, Chronic kidney disease, unspecified. S on(s): alive, diagnosed with Diabetes mellitus without mention of complication, type II or unspecified type, not stated as uncontrolled. D aughter(s): alive, breast cancer, hypothyroidism, diagnosed with Diabetes mellitus without mention of complication, type II or unspecified type, not stated as uncontrolled. 2 sister(s) - healthy. 2 son(s) , 2 daughter(s) - healthy. . * Social History: T obacco Use: T obacco Use/Smoking P atient is a f ormer smoker W hen did you start smoking? 0 09/11/1958 W hen did you stop smoking? 0 09/11/2018 H ow long has it been since you last smoked??1-5 years A dditional Findings: Tobacco Non-User C urrent non-smoker * Medications: T akingAlbuterol Sulfate (2.5 MG/3ML) 0.083% Nebulization Solution 3 mL as needed Inhalation every 6 hrs , Notes to Pharmacist: Dx: J44.9Anastrozole 1 MG Tablet 1 tablet Orally Once a day Aspirin 81(Aspirin) 81 MG Tablet Chewable 1 tablet Orally Once a day Basaglar KwikPen(Insulin Glargine) 100 UNIT/ML Solution Pen-injector 10 units daily Subcutaneous daily DX E11.9BD Pen Needle Mini U/F(Insulin Pen Needle) 31G X 5 MM Miscellaneous USE 1 PEN NEEDLE VIA PEN FOUR TIMES DAILY TO INJECT INSULIN DX E11.9 90 DAYS Eliquis(Apixaban) 5 MG Tablet 1/2 tablet Orally Twice a day Febuxostat 40 MG Tablet 1 tablet Orally Once a day Ferrous Sulfate 325 (65 Fe) MG Tablet TAKE 1 TABLET BY MOUTH TWICE A DAY FOR 30 DAYS Fish Oil 1000 MG Capsule 1 capsule Orally twice a day FreeStyle Sami 2 Mcdonough(Continuous Glucose Typing Pool Supervisor) - Device Use reader multiple times daily to check glucose DX E11.9 , Notes to Pharmacist: Patients reader is not reading accurately even with new patch applied- please send new reader. Thank YouFrRamez Sami 2 Sensor(Continuous Glucose Sensor) - Miscellaneous Dx: E11.9 apply 1 sensor every 2 week Furosemide 40 MG Tablet 1 tablet Orally twice a day, every other day Gabapentin 100 MG Capsule 1 capsule at bedtime Orally Once a day HumaLOG(Insulin Lispro) 100 UNIT/ML Solution as directed Injection sliding scale , Notes to Pharmacist: PRNhydrALAZINE HCl 100 MG Tablet 1 tablet with food Orally TID if SBP>130 , Notes to Pharmacist: PRNHYDROcodone-Acetaminophen 5-325 MG Tablet 1 tablet Orally qid - prn M54.50, Notes to Pharmacist: PRNIsosorbide Mononitrate ER 60 MG Tablet Extended Release 24 Hour TAKE 1 TABLET BY MOUTH EVERY DAY Ketoconazole 2 % Cream 1 application Externally Twice a day , Notes to Pharmacist: PRNLeflunomide 20 MG Tablet 1 tablet Orally Once a day Levothyroxine Sodium 112 MCG Tablet TAKE 1 TABLET BY MOUTH EVERY DAY Liothyronine Sodium 5 MCG Tablet 2 tablet on an empty stomach Orally Once a day metFORMIN HCl 500 MG Tablet TAKE 1 TABLET BY MOUTH TWICE A DAY Metoprolol Succinate ER 200 MG Tablet Extended Release 24 Hour 1/2 tablet Orally Once a day predniSONE 5 MG Tablet 1 tablet with food or milk Orally Once a day Protonix(Pantoprazole Sodium) 20 MG Tablet Delayed Release 1 tablet 1/2 to 1 hour before morning meal Orally BID Simvastatin 40 MG Tablet 1 tablet in the evening Orally Once a day Sucralfate 1 GM Tablet TAKE 1 TABLET BY MOUTH FOUR TIMES A DAY *BEFORE MEALS AND AT BEDTIME* traMADol HCl 50 MG Tablet 2 tablet Orally twice daily Tylenol(Acetaminophen) 325 MG Tablet 2 tablet as needed Orally every 4 hrs Ventolin HFA(Albuterol Sulfate HFA) 108 (90 Base) MCG/ACT Aerosol Solution 2 puff as needed Inhalation every 4 hrs , Notes to Pharmacist: PRNVitamin D3 125 MCG (5000 UT) Capsule 1 capsule Orally Once a day Medication List reviewed and reconciled with the patientTaking Albuterol Sulfate (2.5 MG/3ML) 0.083% Nebulization Solution 3 mL as needed Inhalation every 6 hrs , Notes to Pharmacist: Dx: J44.9Taking Anastrozole 1 MG Tablet 1 tablet Orally Once a day Taking Aspirin 81(Aspirin) 81 MG Tablet Chewable 1 tablet Orally Once a day Taking Basaglar KwikPen(Insulin Glargine) 100 UNIT/ML Solution Pen-injector 10 units daily Subcutaneous daily DX E11.9Taking BD Pen Needle Mini U/F(Insulin Pen Needle) 31G X 5 MM Miscellaneous USE 1 PEN NEEDLE VIA PEN FOUR TIMES DAILY TO INJECT INSULIN DX E11.9 90 DAYS Taking Eliquis(Apixaban) 5 MG Tablet 1/2 tablet Orally Twice a day Taking Febuxostat 40 MG Tablet 1 tablet Orally Once a day Taking Ferrous Sulfate 325 (65 Fe) MG Tablet TAKE 1 TABLET BY MOUTH TWICE A DAY FOR 30 DAYS Taking Fish Oil 1000 MG Capsule 1 capsule Orally twice a day Taking FreeStyle Sami 2 Mcdonough(Continuous Glucose Typing Pool Supervisor) - Device Use reader multiple times daily to check glucose DX E11.9 , Notes to Pharmacist: Patients reader is not reading accurately even with new patch applied- please send new reader. Thank YouTaking FreeStyle Sami 2 Sensor(Continuous Glucose Sensor) - Miscellaneous Dx: E11.9 apply 1 sensor every 2 week Taking Furosemide 40 MG Tablet 1 tablet Orally twice a day, every other day Taking Gabapentin 100 MG Capsule 1 capsule at bedtime Orally Once a day Taking HumaLOG(Insulin Lispro) 100 UNIT/ML Solution as directed Injection sliding scale , Notes to Pharmacist: PRNTaking hydrALAZINE HCl 100 MG Tablet 1 tablet with food Orally TID if SBP>130 , Notes to Pharmacist: PRNTaking HYDROcodone-Acetaminophen 5-325 MG Tablet 1 tablet Orally qid - prn M54.50, Notes to Pharmacist: PRNTaking Isosorbide Mononitrate ER 60 MG Tablet Extended Release 24 Hour TAKE 1 TABLET BY MOUTH EVERY DAY Taking Ketoconazole 2 % Cream 1 application Externally Twice a day , Notes to Pharmacist: PRNTaking Leflunomide 20 MG Tablet 1 tablet Orally Once a day Taking Levothyroxine Sodium 112 MCG Tablet TAKE 1 TABLET BY MOUTH EVERY DAY Taking Liothyronine Sodium 5 MCG Tablet 2 tablet on an empty stomach Orally Once a day Taking metFORMIN HCl 500 MG Tablet TAKE 1 TABLET BY MOUTH TWICE A DAY Taking Metoprolol Succinate ER 200 MG Tablet Extended Release 24 Hour 1/2 tablet Orally Once a day Taking predniSONE 5 MG Tablet 1 tablet with food or milk Orally Once a day Taking Protonix(Pantoprazole Sodium) 20 MG Tablet Delayed Release 1 tablet 1/2 to 1 hour before morning meal Orally BID Taking Simvastatin 40 MG Tablet 1 tablet in the evening Orally Once a day Taking Sucralfate 1 GM Tablet TAKE 1 TABLET BY MOUTH FOUR TIMES A DAY *BEFORE MEALS AND AT BEDTIME* Taking traMADol HCl 50 MG Tablet 2 tablet Orally twice daily Taking Tylenol(Acetaminophen) 325 MG Tablet 2 tablet as needed Orally every 4 hrs Taking Ventolin HFA(Albuterol Sulfate HFA) 108 (90 Base) MCG/ACT Aerosol Solution 2 puff as needed Inhalation every 4 hrs , Notes to Pharmacist: PRNTaking Vitamin D3 125 MCG (5000 UT) Capsule 1 capsule Orally Once a day Medication List reviewed and reconciled with the patient * Allergies: C efdinir: nausea and vomiting - AllergyPercocet - Criticality HighCiproTramadol: hallucinating - AllergylevoFLOXacin: ankle pain - Side Effects - Criticality HighSulfa Antibiotics: rashBee Pollenno[Allergies Verified] Objective: * Vitals: W t:130.0lbs, Ht: 61 in, BP:132/60mm Hg, BMI:24.56Index, Ht-cm: 154.94 cm, Wt-k.97 kg. Assessment: * Assessment: 1. U TI (urinary tract infection) - N39.0 (Primary) 2 . B ilateral impacted cerumen - H61.23 Plan: * Treatment: * Labs: * L ab: UA DIP NONAUTO WO MICRO (75394) - IN OFFICE (Collection Date & Time - 03/07/2025) Value Reference Range C OLOR pale yellow * C LARITY CLEAR * G LUCOSE NEG * B ILIRUBIN NEG * K ETONE NEG * S PECIFIC GRAVITY 1.010 * B LOOD NEG * P H 7 * P ROTEIN NEG * U ROBILINOGEN NEG * N ITRITE NEG * L EUKOCYTE ESTERASE TRACE * Procedure Codes: 6 9209 REMOVE IMPACTED CERUMEN, Modifiers: 50 19209 URINALYSIS WO MICRO * * Sign off status: Completed Visit Status: C HK (Check Out) true * Provider: Alexis Blake ([facility])MD Date: 0 03/07/2025 Generated for Printi ng/Faxing/eTransmitting on: 0 03/19/2025 03:07 PM EDT History and Physical Notes * HPI (History of Present Illness) Category Sub-Category Detail Notes Category Not es General Having morning sickness
[2025-03-19] VITALS (20 sets, daily range): BP systolic 108–149; BP diastolic 58–75; PULSE 75–87; TEMP 36.5–37.2; O2SAT 90–95; BMI 23.6; BMI 26.0
--- OUTSIDE RECORDS SUMMARY | 2025-03-19 06:30 | XMS_ITS ---
Author Organization [facility] in [place] Address [address] [place] [address] Care Team Providers Care Quality Assurance Name Role Phone Rony Blake Primary Care Provider [phone] Allergies Allergen (clinical drug ingredient) Drug/Non Drug [...] everett Results Component Value Reference Range Notes AMYLASE Reviewed date:03/19/2025 12:50:19 PM Interpretation: Performing Lab: Notes/Report: [facility] , Amylase 68 25-115 U/L Performing Lab: see note ML - [facility] LB CBC AUTO DIFF Reviewed date:03/19/2025 12:50:19 PM Interpretation: Performing Lab: Notes/Report: [facility] , White Blood Count 8.7 4.0-11.0 10 3/uL Red Blood Count 3.07 4.20-5.40 10 6/uL Hemoglobin 9.8 12.0-16.0 g/dL Hematocrit 29.7 36.0-48.0 % Mean Corpuscular Volume 96.7 81.0-99.0 fL Mean Corpuscular Hemoglobin 31.9 26.7-34.0 pg Mean Corpuscular HGB Conc 33.0 29.9-35.2 g/dL Red Cell Distribution Width 13.9 11.0-15.0 % Platelet Count 236 150-450 10 3/uL Mean Platelet Volume 10.1 9.5-13.5 fL Neutrophils Percent Auto 59.4 43.0-75.0 % Lymphocytes Percent Auto 22.2 20.5-60.0 % Monocytes Percent Auto 14.0 1.7-12.0 % Eosinophils Percent Auto 3.1 0.9-7.0 % Basophils Percent Auto 0.5 0.2-2.0 % Immature Granulocytes Pct Auto 0.8 0.0-0.5 % Neutrophils Absolute Auto 5.1 1.4-6.5 10 3/uL Lymphocytes Absolute Auto 1.9 1.2-3.8 10 3/uL Monocytes Absolute Auto 1.2 0.3-0.8 10 3/uL Eosinophils Absolute Auto 0.3 0.0-0.7 10 3/uL Basophils Absolute Auto 0.0 0.0-0.1 10 3/uL Immature Granulocytes Abs Auto 0.07 0.00-0.03 10 3/uL Performing Lab: see note ML - [facility] LB LIPASE Reviewed date:03/19/2025 12:50:19 PM Interpretation: Performing Lab: Notes/Report: [facility] , Lipase 95.0 16.0-77.0 U/L Performing Lab: see note ML - [facility] LB PROF 14(COMP METB) Reviewed date:03/19/2025 12:50:19 PM Interpretation: Performing Lab: Notes/Report: [facility] , Sodium 144 136-145 mmol/L Potassium 3.0 3.5-5.1 mmol/L Chloride 101 98-107 mmol/L Carbon Dioxide 32.0 21.0-32.0 mmol/L Anion Gap 14.0 Glucose 129 74-106 mg/dL Blood Urea Nitrogen 27.0 7.0-18.0 mg/dL Creatinine 1.80 0.55-1.02 mg/dL Estimated GFR ( Roma 33 >=60 mL/mi n/1.73m 2 Estimated GFR (Non- Mariza 27 >=60 mL/mi n/1.73m 2 BUN Creatinine Ratio 15.0 Calcium 9.1 8.5-10.1 mg/dL Bilirubin Total 0.5 0.2-1.0 mg/dL Aspartate Amino Transferase 21 15-37 U/L Alanine Aminotransferase 17 14-59 U/L Alkaline Phosphatase 116 46-116 U/L Total Protein 7.0 6.4-8.2 g/dL Albumin Level 2.9 3.4-5.0 g/dL Globulin 4.1 Albumin Globulin Ratio 0.7 Performing Lab: see note ML - [facility] LB REASON FOR VISIT 3 month f/u, Terrible diarrhea for the past 10 days- not even knowing she is having a BM in her pants, Having terrible pain over the past 4 days in the RLQ- had appendix out years ago per patient, Still with dry heaves even with the Zofran, Not drinking much- eating little bits at a time, Finished the ATB she was on, two days ago Medications Medication SIG (Take, Route, Frequency, Duration) Notes Start Date End Date Status Tylenol 325 MG 2 tablet as needed Orally every 4 hrs Active traMADol HCl 50 MG 2 tablet Orally twice daily 03/07/2025 Active Sucralfate 1 GM TAKE 1 TABLET BY MOUTH FOUR TIMES A DAY *BEFORE MEALS AND AT BEDTIME* for 30 Active Vitamin D3 125 MCG (5000 UT) 1 capsule Orally Once a day 02/08/2024 Active Ventolin HFA 108 (90 Base) MCG/ACT 2 puff as needed Inhalation every 4 hrs PRN 07/15/2024 Active Simvastatin 40 MG 1 tablet in the evening Orally Once a day for 90 days Active Protonix 20 MG 1 tablet 1/2 to 1 hour before morning meal Orally BID Active predniSONE 5 MG 1 tablet with food or milk Orally Once a day for 5 days 11/05/2024 Active Ondansetron 4 MG 1 tablet on the tongue and allow to dissolve Orally qid 03/07/2025 Active Metoprolol Succinate ER 200 MG 1/2 tablet Orally Once a day for 90 days Active Levothyroxine Sodium 112 MCG TAKE 1 TABLET BY MOUTH EVERY DAY for 90 days Active Leflunomide 20 MG 1 tablet Orally Once a day 12/18/2024 Active Ketoconazole 2 % 1 application Externally Twice a day for 14 PRN 02/08/2024 Active metFORMIN HCl 500 MG TAKE 1 TABLET BY MOUTH TWICE A DAY for 90 Active Liothyronine Sodium 5 MCG 2 tablet on an empty stomach Orally Once a day for 90 days Active Isosorbide Mononitrate ER 60 MG TAKE 1 TABLET BY MOUTH EVERY DAY for 90 Active HYDROcodone-Acetamino phen 5-325 MG 1 tablet Orally qid - prn for 7 days M54.50 PRN 02/12/2024 Active hydrALAZINE HCl 100 MG 1 tablet with food Orally TID if SBP>130 for 90 days PRN Active HumaLOG 100 UNIT/ML as directed Injection sliding scale PRN 02/08/2024 Active Gabapentin 100 MG 1 capsule at bedtime Orally Once a day Active FreeStyle Sami 2 [place] - Use reader multiple times daily to check glucose DX E11.9 for 730 days Patients reader is not reading accurately even with new patch applied- please send new reader. Thank You 05/01/2024 Active FreeStyle Sami 2 Sensor - Dx: E11.9 apply 1 sensor every 2 week for 30 days Active Ferrous Sulfate 325 (65 Fe) MG TAKE 1 TABLET BY MOUTH TWICE A DAY FOR 30 DAYS for 90 Active Fish Oil 1000 MG 1 capsule Orally twice a day 02/08/2024 Active Furosemide 40 MG 1 tablet Orally twice a day, every other day for 90 days Active Hyoscyamine Sulfate 0.125 MG 1-2 tabs SL SL every 4 hrs PRN abd pain 03/19/2025 Active Eliquis 5 MG 1/2 tablet Orally Twice a day Active Febuxostat 40 MG 1 tablet Orally Once a day 12/18/2024 Active Basaglar KwikPen 100 UNIT/ML 10 units daily Subcutaneous daily for 30 days DX E11.9 01/13/2025 Active BD Pen Needle Mini U/F 31G X 5 MM USE 1 PEN NEEDLE VIA PEN FOUR TIMES DAILY TO INJECT INSULIN DX E11.9 90 DAYS for 90 Active Anastrozole 1 MG 1 tablet Orally Once a day Active Aspirin 81 81 MG 1 tablet Orally Once a day Active Albuterol Sulfate (2.5 MG/3ML) 0.083% 3 mL as needed Inhalation every 6 hrs for 30 days Dx: J44.9 Active Social History Tobacco Use: Social History [...] Non-User Current no n-smoker Vital Signs Weight 129.6 lbs 03/19/2025 Height 61 in 03/19/2025 Blood pressure systolic 138 mm Hg 03/19/20 25 Blood pressure diastolic 66 mm Hg 025 BMI 24.49 kg/m2 03/19/2025 Procedures Procedure Date Ordered Date Performed Result Body Sit e EAR IRRIGATION - performed 03/19/2025 N/A Encounters Encounter Location Date Provider Diagnosis [facility] [address] [place] [address] 03/19/2025 Rony Hoy Gastroenteritis K52. 9 and Cerumen impaction H61.20 Assessments Encounter Date Diagnosis (ICD Code) Assessment Notes Treatment Notes Treatment Clinical Notes Section Notes 03/19/2025 Gastroenteritis (ICD-10 - K52.9) Get plenty of rest. Stay hydrated by sucking on ice chips or taking small sips of water. You can also try drinking clear soda, clear broths or noncaffeinated sports drinks. Stop eating solid foods for a few hours to let your stomach settle. East back into eating by eating bland, vjgv-sy-vtnken foods like crackers, toast, gelatin, bananas, rice and chicken. Try to avoid foods/substances including dairy products, caffeine, alcohol, nicotine and fatty or highly seasoned foods. Medications such as ibuprofen or tylenol can make your stomach more upset, so use sparingly if at all. Also avoid dpwm-erz-nfqvlvi anti-diarrheal medications because it can make it harder for your body to eliminate the virus. 03/19/2025 Cerumen impaction (ICD-10 - H61.20) Plan Of Treatment Medication Medication Name Sig Start Date Stop Date Notes Hyoscyamine Sulfate 0.125 MG 1-2 tabs SL SL every 4 hrs PRN abd pain 03/19/2025 Treatment Notes Assessment Notes Gastroenteritis Get plenty of rest. Stay hydrated by sucking on ice chips or taking small sips of water. You can also try drinking clear soda, clear broths or noncaffeinated sports drinks. Stop eating solid foods for a few hours to let your stomach settle. East back into eating by eating bland, vbjd-bs-cxsrrv foods like crackers, toast, gelatin, bananas, rice and chicken. Try to avoid foods/substances including dairy products, caffeine, alcohol, nicotine and fatty or highly seasoned foods. Medications such as ibuprofen or tylenol can make your stomach more upset, so use sparingly if at all. Also avoid odjg-rsr-mnwvnsy anti-diarrheal medications because it can make it harder for your body to eliminate the virus. Pending Test Test Name Order Date CULTURE, STOOL 03/19/2025 EAR IRRIGATION - performed 03/19/2025 C DIFF TOX PCR STOOL 03/19/2025 CT ABD and PELV W CON 03/19/2025 Procedure Notes * Category Sub-Category Detail Notes Ear irrigation Location: Bilateral Procedure Performed by: CORRECTION WORKER Amount of cerumen removed: moderate With the use of: warm water, hydrogen peroxide Patient tolerated procedure well, tympanic membranes were visualized and were normal TM: were assessed and tr eated as needed Progress Notes * Harman MCLEOD LDOB: [birth year] (84 yo F)Acc No.[id number]:03/19/2025 UNLOCKED PROGRESS NOTE Progress Note Patient: Harman RICHARDS Provider: Alexis Blake ([facility])MD :1940 A ge:84 Y S ex:Female Date:03/19/2025 Address:[address] [place], [place] [id number] Check In:10:26 AM ESTCheck O ut:11:21 AM EST Subjective: * Chief Complaints: * 1 . 3 month f/u. 2. Terrible diarrhea for the past 10 days- not even knowing she is having a BM in her pants. 3. Having terrible pain over the past 4 days in the RLQ- had appendix out years ago per patient. 4. Still with dry heaves even with the Zofran. 5. Not drinking much- eating little bits at a time. 6. Finished the ATB she was on, two days ago. * HPI: G eneral: Diarreha for 10 days - doenst even know is gin - nbow with pain in RLQ - already had appendix oput. G astroenteritis: The patient complains of s ymptoms of the stomach flu. The symptoms have been present for 1 -2 days. The symptoms are m oderate. The patient h as not been exposed to sick contacts. Symptomatic treatment has included O TC medication. Associated symptoms include a bdominal pain, diarrhea, stomach cramps, nausea, vomiting, chills, fever. * ROS: G eneral/Constitutional: Recent Weight Gain d enies. S kin: Rash d enies. C ardiovascular: Edema d enies. P alpitations d enies. ? G astrointestinal: Comments S [facility] for details. * Medical History: E maegan, Olecranon bursitis of left elbow, Acute bronchitis, Invasive ductal carcinoma of breast, right, Rectal bleeding, Furuncle left hand, Skin lesion, Over weight, Screening mammogram for breast cancer, COVID-19 virus infection, Chronic airway obstruction, Chronic obstructive pulmonary disease (COPD), Carcinoma in situ of vagina, Actinic keratoses, Seborrheic keratosis, Gastritis, Cellulitis of right foot, Vertigo, peripheral, Vertigo of central origin, Other abnormalities of gait and mobility, Recurrent falls, Chronic diastolic heart failure, Atherosclerosis of [place] artery of extremity, Paroxysmal atrial fibrillation, At risk for falls, Vulval lesion, Edema leg, Chronic kidney disease, stage 2 (mild), Acute combined systolic (congestive) and diastolic (congestive) heart failure, AB (asthmatic bronchitis), Achilles bursitis of right lower extremity, Rupture of blood vessel, Well adult, 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 * Surgical History: a ppendix , stent in heart , stent in kidney , stent in right leg , lumpectomy , I and D Right Glut Abcess , Defib placement 07/04. * Hospitalization/Major Diagno stic Procedure: G out/Arthritis/ Bronchitis 2022. * Family History: F ather: , Heart [...] Non-User C urrent non-smoker * Medications: T aking Albuterol Sulfate (2.5 MG/3ML) 0.083% Nebulization Solution 3 mL as needed Inhalation every 6 hrs , Notes to Pharmacist: Dx: J44.9, Taking Anastrozole 1 MG Tablet 1 tablet Orally Once a day , Taking Aspirin 81(Aspirin) 81 MG Tablet Chewable 1 tablet Orally Once a day , Taking Basaglar KwikPen(Insulin Glargine) 100 UNIT/ML Solution Pen-injector 10 units daily Subcutaneous daily DX E11.9, Taking BD Pen Needle Mini U/F(Insulin Pen Needle) 31G X 5 MM Miscellaneous USE 1 PEN NEEDLE VIA PEN FOUR TIMES DAILY TO INJECT INSULIN DX E11.9 90 DAYS , Taking Eliquis(Apixaban) 5 MG Tablet 1/2 tablet Orally Twice a day , Taking Febuxostat 40 MG Tablet 1 tablet Orally Once a day , Taking Ferrous Sulfate 325 (65 Fe) MG Tablet TAKE 1 TABLET BY MOUTH TWICE A DAY FOR 30 DAYS , Taking Fish Oil 1000 MG Capsule 1 capsule Orally twice a day , Taking FreeStyle Sami 2 [place](Continuous Glucose [employer]) - Device Use reader multiple times daily to check glucose DX E11.9 , Notes to Pharmacist: Patients reader is not reading accurately even with new patch applied- please send new reader. Thank You, Taking FreeStyle Sami 2 Sensor(Continuous Glucose Sensor) - Miscellaneous Dx: E11.9 apply 1 sensor every 2 week , Taking Furosemide 40 MG Tablet 1 tablet Orally twice a day, every other day , Taking Gabapentin 100 MG Capsule 1 capsule at bedtime Orally Once a day , Taking HumaLOG(Insulin Lispro) 100 UNIT/ML Solution as directed Injection sliding scale , Notes to Pharmacist: PRN, Taking hydrALAZINE HCl 100 MG Tablet 1 tablet with food Orally TID if SBP>130 , Notes to Pharmacist: PRN, Taking HYDROcodone-Acetaminophen 5-325 MG Tablet 1 tablet Orally qid - prn M54.50, Notes to Pharmacist: PRN, Taking Isosorbide Mononitrate ER 60 MG Tablet Extended Release 24 Hour TAKE 1 TABLET BY MOUTH EVERY DAY , Taking Ketoconazole 2 % Cream 1 application Externally Twice a day , Notes to Pharmacist: PRN, Taking Leflunomide 20 MG Tablet 1 tablet Orally Once a day , Taking Levothyroxine Sodium 112 MCG Tablet TAKE 1 TABLET BY MOUTH EVERY DAY , Taking Liothyronine Sodium 5 MCG Tablet 2 tablet on an empty stomach Orally Once a day , Taking metFORMIN HCl 500 MG Tablet TAKE 1 TABLET BY MOUTH TWICE A DAY , Taking Metoprolol Succinate ER 200 MG Tablet Extended Release 24 Hour 1/2 tablet Orally Once a day , Taking Ondansetron 4 MG Tablet Disintegrating 1 tablet on the tongue and allow to dissolve Orally qid , Taking predniSONE 5 MG Tablet 1 tablet with food or milk Orally Once a day , Taking Protonix(Pantoprazole Sodium) 20 MG Tablet Delayed Release 1 tablet 1/2 to 1 hour before morning meal Orally BID , Taking Simvastatin 40 MG Tablet 1 tablet in the evening Orally Once a day , Taking Sucralfate 1 GM Tablet TAKE 1 TABLET BY MOUTH FOUR TIMES A DAY *BEFORE MEALS AND AT BEDTIME* , Taking traMADol HCl 50 MG Tablet 2 tablet Orally twice daily , Taking Tylenol(Acetaminophen) 325 MG Tablet 2 tablet as needed Orally every 4 hrs , Taking Ventolin HFA(Albuterol Sulfate HFA) 108 (90 Base) MCG/ACT Aerosol Solution 2 puff as needed Inhalation every 4 hrs , Notes to Pharmacist: PRN, Taking Vitamin D3 125 MCG (5000 UT) Capsule 1 capsule Orally Once a day , Discontinued Amoxicillin-Pot Clavulanate 875-125 MG Tablet 1 tablet Orally every 12 hrs , Discontinued Pyridium(Phenazopyridine HCl) 200 MG Tablet 1 tablet after meals Orally Three times a day , Medication List reviewed and reconciled with the patient * Allergies: C efdinir: nausea and vomiting - Allergy, Percocet - Criticality High, Cipro, Tramadol: hallucinating - Allergy, levoFLOXacin: ankle pain - Side Effects - Criticality High, Sulfa Antibiotics: rash, Bee Pollen. Objective: * Vitals: W t:129.6lbs, Ht: 61 in, BP:138/66mm Hg, BMI:24.49Index, Ht-cm: 154.94 cm, Wt-k.79 kg. * Examination: G eneral Examination: GENERAL APPEARANCE: well developed, well nourished, in no acute distress. ENT: Normocephalic , Atraumatic. EYES: pupils equal, round, reactive to light and accomodations, sclera non-icteric. EARS: normal. ORAL CAVITY: mucosa moist. THROAT: clear. LUNGS: clear to auscultation bilaterally. CARDIO: regular rate and rhythm, S1, S2 normal, no murmurs. ABDOMEN: liver nontender, ___soft, no significant tenderness, liver, spleen not felt, no rebound, negative Hannah's sign, no guarding or rigidity, no hepatosplenomegaly, no hernias present, no masses palpable, no rebound tenderness. SKIN: warm and dry, no suspicious lesions. EXTREMITIES: no clubbing, cyanosis, or edema. NEUROLOGIC: nonfocal, motor strength of upper/lower extremities intact , sensory exam intact. NECK/THYROID: neck supple, full range of motion, no cervical lymphadenopathy. Assessment: * Assessment: 1. G astroenteritis - K52.9 (Primary) 2 . C erumen impaction - H61.20 ? Plan: * Treatment: 2. C erumen impaction P rocedure: EAR IRRIGATION - performed * Procedures: E ar irrigation: Location: B ilateral . Procedure Performed by: Berna RUIZ . Amount of cerumen removed: m oderate. With the use of: w arm water, hydrogen peroxide. Patient t olerated procedure well, tympanic membranes were visualized and were normal. TM: w ere assessed and treated as needed. * Labs: * L ab: PROF 14(COMP METB) (Collection Date & Time - 03/19/2025 11:56 AM) L ab: AMYLASE (Collection Date & Time - 03/19/2025 11:56 AM) L ab: LIPASE (Collection Date & Time - 03/19/2025 11:56 AM) L ab: CBC AUTO DIFF (Collection Date & Time - 03/19/2025 11:56 AM) * Procedure Codes: 6 9209 REMOVE IMPACTED CERUMEN, 68934 REMOVE IMPACTED CERUMEN * * Electronic signature of Rony Blake MD, [id number] on 03/19/2025 at 03:06 PM EDT Sign off status: Pending Visit Status: C HK (Check Out) * Provider: Alexis Blake ([facility])MD Date: 03/19/2025 Generated for Printi ng/Faxing/eTransmitting on: 03/19/2025 03:06 PM EDT History and Physical Notes * HPI (History of Present Illness) Category Sub-Category Detail Notes Category Not es General Diarreha for 10 days - doenst even know is gin - nbow with pain in RLQ - already had appendix oput Gastroenteritis The patient complain s of symptoms of the stomach flu The symptoms have been present for 1-2 d ays The symptoms are moderate The patient has not been exposed to sick contacts Symptomatic treatment has included OTC m edication Associated symptoms include abdominal pa in, diarrhea, stomach cramps, nausea, vomiting, chills, fever Examination Category Sub-Category Detail Notes Category Not es General Examination GENERAL APPEARANCE: well dev eloped, well nourished, in no acute distress ENT: Normocephalic , Atra umatic EYES: pupils equal, round, reactive to light and accomodations, sclera non-icteric EARS: normal THROAT: clear CARDIO: regular rate and rhy thm, S1, S2 normal, no murmurs LUNGS: clear to auscultatio n bilaterally ABDOMEN: liver nontender, ___ soft, no significant tenderness, liver, spleen not felt, no rebound, negative Hannah's sign, no guarding or rigidity, no hepatosplenomegaly, no hernias present, no masses palpable, no rebound tenderness NEUROLOGIC: nonfocal, motor stre ngth of upper/lower extremities intact , sensory exam intact SKIN: warm and dry, no jazzy picious lesions EXTREMITIES: no clubbing, cyanosi s, or edema ORAL CAVITY: mucosa moist NECK/THYROID: neck supple, full ra nge of motion, no cervical lymphadenopathy
--- OUTSIDE RECORDS SUMMARY | 2025-03-19 08:46 | XMS_ITS ---
Author Organization The [facility] in [place] Address [address] [place] [address] Care Team Providers Care Show Worker Name Role Phone Rony Blake Primary Care Provider REASON FOR VISIT labs daughter will call office Encounters Encounter Location Date Provider Diagnosis [facility] [address] [place] [address] 03/19/2025 Rony Blake Plan Of Treatment No Information Progress Notes * Harman MCLEOD LDOB: [birth year] (84 yo F)Acc No.[id number]:03/19/2025 Patient: Harman RICHARDS Berna :1940 A ge:84 Y S ex:Female Address:[address] [place] [address] , [place], [address] * true * Date: Generated for Printi ng/Fakatieg/eTransmitting on: 0 03/19/2025 03:06 PM EDT
--- NOTE | 2025-03-19 15:02 | ECG_ITS ---
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
--- NOTE | 2025-03-19 15:03 | CT_ITS ---
The [address] [address] Patient Name: OSCAR MCLEOD MRN: [id number] date: 1940 Sex: F Assigned Patient Location: ER Current Patient Location: ER Accession/Order Number: [id number] Exam Date: 03/19/2025 17:07 Report Date: 03/19/2025 17:14 At the request of: JULIET GERMAN MD Procedure: CT abdomen pelvis wo con CT ABDOMEN AND PELVIS WITHOUT INTRAVENOUS CONTRAST: CLINICAL HISTORY: Right lower quadrant abdominal COMPARISON: None TECHNIQUE: Spiral images were obtained through the abdomen and pelvis without intravenous contrast. This CT exam was performed using one or more following dose reduction techniques: Automated exposure control, adjustment of the mA and/or kV according to patient size, or use of iterative reconstruction technique. FINDINGS: Lung Bases: [Cardiomegaly. Minor left lung subsegmental atelectasis and or scarring.] Organs:Gallstones within a contracted gallbladder. Otherwise the liver, spleen, adrenals, left kidney unremarkable. Right renal cyst. Right renal calculi, nonobstructive. No hydronephrosis.[ GI: Mild to moderate retained stool throughout the colon. No bowel obstruction. Mild scattered colonic diverticulosis. Involving sigmoid colon, best seen on this coronal images, 40 there is questionable minimal surrounding haziness The appendix is not identified. There are no pericecal inflammatory changes.[ Pelvis:[Bladder unremarkable. Uterus absent. No adnexal mass.] Peritoneum/Retroperitoneum:Moderate severe plaque involving the nonaneurysmal abdominal aorta. Moderate plaque involving the mesenteric vessels.[No free air or free fluid. Abd wall/Bones:Osteopenia. Multilevel degenerative change.[ CT/CT abdomen pelvis wo con IMPRESSION: Question minimal pericolic haziness involving the sigmoid colon best seen on the coronal images. This may raise possibility for underlying acute diverticulitis. Recommend follow-up following medical course to document resolution. Punctate right-sided nephrolithiasis, nonobstructive. No hydronephrosis or obstructive uropathy. Cholelithiasis. Impression dictated by: Duong Nowak M.D. 03/19/2025 5:14 PM Dictation Location: [place] [address] Electronically authenticated by: [id number] Y Date: 03/19/2025 17:14
--- NOTE | 2025-03-19 15:05 | ED.ABDPAIN1 ---
HPI - Abdominal Pain General Chief Complaint: Abdominal Pain Stated Complaint: ABDOMINAL PAIN Time Seen by Provider: 03/19/25 14:54 Source: patient Mode of arrival: Wheelchair Limitations: no limitations History of Present Illness HPI narrative: 84-year-old female presents for abdominal pain. She is complaining of pain in her right lower abdomen and she has had it for few days. She has also had diarrhea for about 10 days and has had 3-4 episodes per day. No blood in it. She finished antibiotics 2 days ago. She had some outpatient blood work today and was told to come to the emergency department. Related Data Home Medications ?Medication ?Instructions ?Recorded ?Confirmed albuterol sulfate 2.5 mg/3 mL 2.5 mg inhalation Q4H PRN 03/04/23 03/06/25 (0.083 %) solution for nebulization shortness of breath or wheezing anastrozole 1 mg tablet 1 mg PO DAILY 03/04/23 03/06/25 aspirin 81 mg tablet,delayed 81 mg PO DAILY 03/04/23 03/06/25 release (Adult Low Dose Aspirin) furosemide 40 mg tablet 40 mg PO DAILY 03/04/23 03/06/25 isosorbide mononitrate 60 mg 60 mg PO DAILY 03/04/23 03/06/25 tablet,extended release 24 hr levothyroxine 112 mcg tablet 112 mcg PO .ACB 03/04/23 03/06/25 liothyronine 5 mcg tablet 10 mcg PO .ACB 03/04/23 03/06/25 metoprolol succinate 200 mg 100 mg PO DAILY 03/04/23 03/06/25 tablet,extended release 24 hr sucralfate 1 gram tablet 1 g PO ACHS 03/04/23 03/06/25 febuxostat 40 mg tablet 40 mg PO DAILY 08/20/23 03/06/25 insulin glargine 100 unit/mL 16 unit subcut QAM 10/14/23 03/06/25 subcutaneous solution (Lantus U-100 Insulin) ferrous sulfate 325 mg (65 mg 325 mg PO BID 06/26/24 03/06/25 iron) tablet metformin 500 mg tablet 500 mg PO BIDWM 06/26/24 03/06/25 simvastatin 40 mg tablet 40 mg PO .QHS 06/26/24 03/06/25 hydralazine 50 mg tablet 100 mg PO TID PRN hypertension 09/06/24 03/06/25 amlodipine 10 mg tablet 10 mg PO DAILY 03/06/25 03/06/25 apixaban 5 mg tablet (Eliquis) 5 mg PO BID 03/06/25 03/06/25 fluticasone furoate 100 1 inh inhalation DAILY 03/06/25 03/06/25 mcg-vilanterol 25 mcg/dose inhalation powder (Breo Ellipta) leflunomide 20 mg tablet 20 mg PO DAILY 03/06/25 03/06/25 potassium chloride 20 mEq oral 20 meq PO BID 03/06/25 03/06/25 packet (Klor-Con) tramadol 50 mg tablet 50 mg PO BID 03/06/25 03/06/25 Previous Rx's ?Medication ?Instructions ?Recorded pantoprazole 40 mg tablet,delayed 40 mg PO BID #60 tabs 06/27/24 release (Protonix) diazepam 10 mg tablet (Valium) 10 mg PO ONCE 24 hours #1 tab 03/06/25 gabapentin 100 mg capsule 100 mg PO BID #60 caps 03/06/25 Allergies Allergy/AdvReac Type Severity Reaction Status Date / Time oxycodone AdvReac Severe nausea and Verified 03/19/25 14:43 vomiting tramadol AdvReac Severe Vomiting Verified 03/19/25 14:43 cefdinir AdvReac Unknown Vomiting Verified 03/19/25 14:43 ciprofloxacin AdvReac Unknown Vomiting Verified 03/19/25 14:43 Review of Systems ROS Narrative A ten point review of systems is negative except as noted above. [facility] Medical History (Updated 03/19/25 @ 18:03 by Justino Jeff MD) Acute kidney injury superimposed on chronic kidney disease ?N17.9 - Acute kidney failure, unspecified (ICD-10) ?N18.9 - Chronic kidney disease, unspecified (ICD-10) Cellulitis of arm, left ?L03.114 - Cellulitis of left upper limb (ICD-10) Defibrillator discharge ?Z45.02 - Encounter for adjustment and management of automatic implantable cardiac defibrillator (ICD-10) Lower gastrointestinal hemorrhage ?K92.2 - Gastrointestinal hemorrhage, unspecified (ICD-10) Anemia in stage 4 chronic kidney disease ?N18.4 - Chronic kidney disease, stage 4 (severe) (ICD-10) ?D63.1 - Anemia in chronic kidney disease (ICD-10) Abscess, gluteal, right ?L02.31 - Cutaneous abscess of buttock (ICD-10) Morbid obesity ?E66.01 - Morbid (severe) obesity due to excess calories (ICD-10) History of tobacco abuse ?Z87.891 - Personal history of nicotine dependence (ICD-10) Acute renal failure ?N17.9 - Acute kidney failure, unspecified (ICD-10) Elevated diaphragm ?J98.6 - Disorders of diaphragm (ICD-10) Pleural effusion ?J90 - Pleural effusion, not elsewhere classified (ICD-10) COPD with acute exacerbation ?J44.1 - Chronic obstructive pulmonary disease with (acute) exacerbation (ICD-10) Acute hypoxic respiratory failure ?J96.01 - Acute respiratory failure with hypoxia (ICD-10) Acute on chronic diastolic CHF (congestive heart failure) ?I50.33 - Acute on chronic diastolic (congestive) heart failure (ICD-10) Type 2 diabetes mellitus ?E11.9 - Type 2 diabetes mellitus without complications (ICD-10) Hypoxemia ?R09.02 - Hypoxemia (ICD-10) Abscess ?L02.91 - Cutaneous abscess, unspecified (ICD-10) Abscess ?L02.91 - Cutaneous abscess, unspecified (ICD-10) Cellulitis and abscess of left leg ?L03.116 - Cellulitis of left lower limb (ICD-10) ?L02.416 - Cutaneous abscess of left lower limb (ICD-10) Hyperkalemia ?E87.5 - Hyperkalemia (ICD-10) Moderate protein-calorie malnutrition ?E44.0 - Moderate protein-calorie malnutrition (ICD-10) CHF (congestive heart failure) ?I50.9 - Heart failure, unspecified (ICD-10) Hypoxia ?R09.02 - Hypoxemia (ICD-10) Acute infective exacerbation of chronic obstructive airway disease ?J44.1 - Chronic obstructive pulmonary disease with (acute) exacerbation (ICD-10) Weakness ?R53.1 - Weakness (ICD-10) Acute right hip pain ?M25.551 - Pain in right hip (ICD-10) Rheumatoid arthritis flare ?M06.9 - Rheumatoid arthritis, unspecified (ICD-10) Difficulty in walking ?R26.2 - Difficulty in walking, not elsewhere classified (ICD-10) Arthralgia ?M25.50 - Pain in unspecified joint (ICD-10) CAD, multiple vessel ?I25.10 - Atherosclerotic heart disease of [place] coronary artery without angina pectoris (ICD-10) Atrial fibrillation ?I48.91 - Unspecified atrial fibrillation (ICD-10) COPD (chronic obstructive pulmonary disease) ?J44.9 - Chronic obstructive pulmonary disease, unspecified (ICD-10) Gouty arthritis ?M10.9 - Gout, unspecified (ICD-10) Hypothyroidism (acquired) ?E03.9 - Hypothyroidism, unspecified (ICD-10) Hypokalemia ?E87.6 - Hypokalemia (ICD-10) Iron deficiency anemia ?D50.9 - Iron deficiency anemia, unspecified (ICD-10) Surgical History (Updated 09/05/24 @ 20:41 by Zena Bhakta) History of cardiac defibrillator placement ?Z95.810 - Presence of automatic (implantable) cardiac defibrillator (ICD-10) H/O right mastectomy ?Z90.11 - Acquired absence of right breast and nipple (ICD-10) H/O: hysterectomy ?Z90.710 - Acquired absence of both cervix and uterus (ICD-10) History of appendectomy ?Z90.49 - Acquired absence of other specified parts of digestive tract (ICD-10) H/O heart artery stent ?Z95.5 - Presence of coronary angioplasty implant and graft (ICD-10) Family History (Updated 10/14/23 @ 23:05 by Zena Bhakta) Father Family history of CHF (congestive heart failure) Family history of cancer Family history of hypertension Sister Family history of cancer Family history of diabetes mellitus Mother Family history of diabetes mellitus Family history of hypertension Social History (Updated 02/13/24 @ 18:21 by Kira Meza LPN) Within the past year, how often did you have a drink containing alcohol: never Within the past year, how often did you have six or more drinks on one occasion: never Score interpretation: A score less than 3 is consistent with normal alcohol consumption. Smoking status: Former smoker Non-prescribed substance use: denies use Previous occupational history: retired Highest level of school completed/degree received: high school graduate Are you now , , , , never or living with a partner: In a typical week, how many times do you talk on the telephone with family, friends, or neighbors: 3 or more times per week How often do you get together with friends or relatives: 3 or more times per week How often do you attend judaism or gnosticist services: 4 or more times per year Little interest or pleasure in doing things: not at all Feeling down, depressed, or hopeless: not at all Feel stressed/tense/nervous/anxious/difficulty sleeping: not at all Do you think of yourself as: straight/heterosexual Gender Identity: female Exam Narrative Exam Narrative: Nurses note and vital signs reviewed and patient is not hypoxic. General: The patient appears well and in no apparent distress. Patient is resting comfortably on cart. Skin: Warm, dry, no pallor noted. There is no rash noted. Head: Normocephalic, atraumatic Eye: Normal conjunctiva, no drainage Ears, Nose, Mouth, and Throat: oral mucosa is moist. Nares patent. Cardiovascular: Regular Rate and Rhythm Respiratory: Patient is in no distress, no accessory muscle use, lungs are clear to auscultation, no wheezing, rales or rhonchi Back: non-tender GI: Soft and nondistended. Tenderness present in the right lower quadrant without mass. Musculoskeletal: The patient has no evidence of calf tenderness, no pitting edema, symmetrical pulses noted bilaterally Neurological: A&O, normal speech Psychiatric: Cooperative Constitutional Vital Signs, click to edit/add: Last Vital Signs Temp 98.9 F 03/19/25 14:38 Pulse 75 03/19/25 17:40 Resp 14 03/19/25 17:40 BP 127/58 03/19/25 14:38 Pulse Ox 95 03/19/25 14:38 O2 Del Method Room Air 03/19/25 14:38 Course Vital Signs Vital signs: Vital Signs Temperature 98.9 F 03/19/25 14:38 Pulse Rate 75 03/19/25 14:38 Respiratory Rate 18 03/19/25 14:38 Blood Pressure 127/58 03/19/25 14:38 Pulse Oximetry 03/19/25 14:38 Oxygen Delivery Method Room Air 03/19/25 14:38 Temperature 98.9 F 03/19/25 14:38 Pulse Rate 75 03/19/25 17:40 Respiratory Rate 14 03/19/25 17:40 Blood Pressure 127/58 03/19/25 14:38 Pulse Oximetry 03/19/25 14:38 Oxygen Delivery Method Room Air 03/19/25 14:38 MDM - Abdominal Pain MDM Narrative Medical decision making narrative: Creatinine is elevated above her baseline. Lipase is elevated but I do not suspect acute pancreatitis at this point. CT has no radiographic evidence of pancreatitis. There is questionable acute diverticulitis and she was given IV Cipro and Flagyl as well as IV fluids. The patient will be admitted and findings are discussed with the patient. Differential Diagnosis Differential diagnosis: Likely abdominal pain, constipation, diverticulitis, gastroenteritis, pancreatitis and small bowel obstruction Lab Data Attestation: I reviewed the patient's lab results. Labs: Lab Results 03/19/25 03/19/25 Range/Units 15:15 17:24 WBC 8.4 (4.0-11.0) 10^3/uL RBC 3.18 L (4.20-5.40) 10^6/uL Hgb 10.1 L (12.0-16.0) g/dL Hct 30.4 L (36.0-48.0) % MCV 95.6 (81.0-99.0) fL MCH 31.8 (26.7-34.0) pg MCHC 33.2 (29.9-35.2) g/dL RDW 13.9 (11.0-15.0) % Plt Count 222 (150-450) 10^3/uL MPV 9.6 (9.5-13.5) fL Neut % (Auto) 56.8 (43.0-75.0) % Lymph % (Auto) 22.7 (20.5-60.0) % Hyde % (Auto) 15.7 H (1.7-12.0) % Eos % (Auto) 3.4 (0.9-7.0) % Baso % (Auto) 0.7 (0.2-2.0) % Neut # (Auto) 4.8 (1.4-6.5) 10^3/uL Lymph # (Auto) 1.9 (1.2-3.8) 10^3/uL Hyde # (Auto) 1.3 H (0.3-0.8) 10^3/uL Eos # (Auto) 0.3 (0.0-0.7) 10^3/uL Baso # (Auto) 0.1 (0.0-0.1) 10^3/uL Abs Immat Gran (auto) 0.06 H (0.00-0.03) 10^3/uL Imm/Tot Granulo (auto) 0.7 H (0.0-0.5) % Sodium 144 (136-145) mmol/L Potassium 3.0 L (3.5-5.1) mmol/L Chloride 101 (98-107) mmol/L Carbon Dioxide 29.8 (21.0-32.0) mmol/L Anion Gap 16.2 BUN 29.0 H (7.0-18.0) mg/dL Creatinine 2.02 H (0.55-1.02) mg/dL Est GFR ( Amer) 29 L (>=60 mL/min/1.73m^2) Est GFR (Non-Af Amer) 24 L (>=60 mL/min/1.73m^2) BUN/Creatinine Ratio 14.4 Glucose 138 H (74-106) mg/dL Calcium 9.3 (8.5-10.1) mg/dL Total Bilirubin 0.5 (0.2-1.0) mg/dL Direct Bilirubin 0.1 (0.0-0.2) mg/dL AST 18 (15-37) U/L ALT 19 (14-59) U/L Alkaline Phosphatase 119 H (46-116) U/L Total Protein 7.0 (6.4-8.2) g/dL Albumin 2.9 L (3.4-5.0) g/dL Globulin 4.1 g/dL Albumin/Globulin Ratio 0.7 Amylase 75 (25-115) U/L Lipase 107.0 H (16.0-77.0) U/L Urine Color Lt. yellow (YELLOW) Urine Clarity Clear (CLEAR) Urine pH 6.0 (5.0-9.0) Ur Specific Orange 1.010 (1.005-1.025) Urine Protein Negative (NEG/TRACE) mg/dL Urine Glucose (UA) Negative (NEGATIVE) mg/dL Urine Ketones Negative (NEGATIVE) mg/dL Urine Occult Blood Negative (NEGATIVE) Urine Nitrite Negative (NEGATIVE) Urine Bilirubin Negative (NEGATIVE) Urine Urobilinogen 0.2 (0.2-1.0) EU/dL Ur Leukocyte Esterase Negative (NEGATIVE) Urine RBC 0-2 (0-2) #/HPF Urine WBC 0-2 A (NONE SEEN) #/HPF Ur Squamous Epith Cells Few A (NONE/RARE) #/LPF Ur Transition Epith Cell Rare A (NONE SEEN) #/LPF Urine Crystals None seen (None Seen) #/HPF Urine Bacteria Trace A (NONE SEEN) #/HPF Urine Casts None seen (NONE SEEN) #/LPF Urine Mucus None seen (NONE SEEN) Ur Culture Indicated? No Imaging Data CT scan - abdomen: Radiologist's impression: ITS Impressions Abdomen/Pelvis CT 03/19/25 15:03 IMPRESSION: Question minimal pericolic haziness involving the sigmoid colon best seen on the coronal images. This may raise possibility for underlying acute diverticulitis. Recommend follow-up following medical course to document resolution. Punctate right-sided nephrolithiasis, nonobstructive. No hydronephrosis or obstructive uropathy. Cholelithiasis. Impression dictated by: Duong Nowak M.D. 03/19/2025 5:14 PM Dictation Location: [place] [address] Electronically authenticated by: [id number] Y Date: 03/19/2025 17:14 ECG Data Attestation: I personally reviewed and interpreted this ECG as follows: (EKG on my interpretation shows paced rhythm) Discharge Plan Discharge Chief Complaint: Abdominal Pain Clinical Impression: Dehydration, Diarrhea, Acute diverticulitis Patient Disposition: Admitted As Inpatient Time of Disposition Decision: 17:57 Condition: Fair
--- OUTSIDE RECORDS SUMMARY | 2025-03-19 15:06 | XMS_ITS | Clinical Summary ---
Author Organization [facility] Address [address] [place] [address] Care Team Providers Care Accordion Repairer Name Role Phone Gil Blake MD Primary Care Provider [phone] Allergies Active Allergy Reactions Criticality Noted Date Comments Cefdinir Other 09/13/2022 Ciprofloxacin Hives,Other High 09/29/2017 Other reaction(s): Other: See Comments tendon issues tendon issues Oxycodone Rash Low 04/25/2019 Rash & GI upset Oxycodone-Acetaminophen Other Low 03/31/2013 GI upset & rash Tramadol Other 07/10/2024 Medications albuterol 2.5 mg /3 mL (0.083 %) nebulizer solution USE 1 VIAL IN NEBULIZER 4 TIMES DAILY NEEDED 2 Active aspirin 81 mg EC tablet Take 81 mg by mouth. Active fish oil concentrate ([place]-3) 120-180 mg capsule Take 1,000 mg by mouth. Active furosemide (Lasix) 40 mg tablet Take 40 mg by mouth in the morning. 2 Active glimepiride (Amaryl) 4 mg tablet Take 4 mg by mouth in the morning and at bedtime. 2 Active hydrALAZINE (Apresoline) 100 mg tablet Take 100 mg by mouth if needed in the morning, at noon, and at bedtime. For SBP >130 2 Active isosorbide mononitrate ER (Imdur) 60 mg 24 hr tablet Take 60 mg by mouth in the morning. 2 Active levothyroxine (Synthroid, Levoxyl) 112 mcg tablet Take 112 mcg by mouth in the morning. 2 Active liothyronine (Cytomel) 5 mcg tablet Take 10 mcg by mouth in the morning. 2 Active metFORMIN (Glucophage) 500 mg tablet Take 500 mg by mouth in the morning and at bedtime. 2 Active metoprolol succinate XL (Toprol-XL) 200 mg 24 hr tablet Take 100 mg by mouth in the morning. Take 1/2 a tablet daily 2 Active sucralfate (Carafate) 1 gram tablet Take 1 g by mouth before breakfast, before lunch, before evening meal, and at bedtime. 2 Active anastrozole (Arimidex) 1 mg chemo tablet Take 1 mg by mouth in the morning Swallow whole with a drink of water. Active simvastatin (Zocor) 40 mg tabletIndications :Dyslipidemia Take 1 tablet (40 mg) by mouth at bedtime. 90 tablet 3 4 05/27/20 25 Active febuxostat (Uloric) 40 mg tablet Take 40 mg by mouth in the morning. Active ferrous sulfate 325 (65 Fe) MG tablet Take 325 mg by mouth two times daily. 4 Active insulin glargine (Lantus) 100 unit/mL (3 mL) injection pen 16 Units in the morning. 4 Active cholecalciferol (D3-5) 5,000 Units tablet in the morning. 3 Active pantoprazole (ProtoNix) 40 mg EC tablet Take 40 mg by mouth in the morning and at bedtime. 4 Active apixaban (Eliquis) 2.5 mg tabletIndications :Paroxysmal atrial fibrillation (CMS/HCC) Take 1 tablet (2.5 mg) by mouth two times daily. Do not start before August 19, 2024. 60 tablet 4 Active amLODIPine (Norvasc) 10 mg tablet Take 10 mg by mouth. Active leflunomide (Arava) 20 mg tablet Take 1 tablet by mouth in the morning. 5 Active predniSONE (Deltasone) 10 mg tablet Take 10 mg by mouth in the morning. Active Active Problems Problem Noted Date Diagnosed Date Pacemaker 07/17/2024 Primary hypertension 07/17/2024 LBBB (left bundle branch block) 07/17/2024 Paroxysmal atrial fibrillation 07/17/2024 Longstanding persistent atrial fibrillation 06/12 Acute combined systolic and diastolic heart fail ure 07/02/2024 Altered mental status 06/12/2024 Edema of both lower legs 06/12/2024 Leg ulcer, left 06/12/2024 Leg wound, right 06/12/2024 Open wound of left thigh 06/12/2024 Uses walker 06/12/2024 Varicose veins of both legs with edema Stage 3a chronic kidney disease 02/14/2023 DM type 2 (diabetes mellitus, type 2) 09/13/2022 Vaginal dysplasia 09/13/2022 Vaginal intraepithelial neoplasia III (VAIN III) 09/13/2022 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 She has returned home from snf facility and presents today with granddaughter who [...] helps prevent rehospitalization for heart failure exacerbation Brain stem vertigo 09/13/2022 Breast cancer of upper-outer quadrant of right female breast 09/13/2022 Cervical disc disease 09/13/2022 Chronic anticoagulation 09/13/2022 Chronic low back pain 09/13/2022 Chronic obstructive pulmonary disease 09/13/2022 Diverticulosis 09/13/2022 Edema 09/13/2022 Invasive ductal carcinoma of right breast 2022 Osteopenia 09/13/2022 Pseudoaneurysm of femoral artery 09/13/2022 Pure hypercholesterolemia 09/13/2022 Rectal bleeding 09/13/2022 Stage 2 chronic kidney disease 09/13/2022 Postoperative state 06/28/2022 Chronic diastolic heart failure 04/19/2022 Dyspnea 02/16/2022 HGSIL Pap smear of vagina 04/13/2021 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 Dyslipidemia 01/16/2017 Assessment & Plan (05/27/2024 12:56 PM EDT): As above S/P coronary artery stent placement 01/16/2017 Assessment & Plan (05/27/2024 12:57 PM EDT): Remains on ASA No c/o angina or concerns Moderate smoker (20 or less per day) 01/16/2017 Angina pectoris 12/22/2011 Gastroesophageal reflux disease 12/22/2011 Hyperlipidemia 12/22/2011 Assessment & Plan (05/27/2024 12:54 PM EDT): Lipid abnormalities are elevated therefore will increase zocor to 40 mg daily. Will repeat lipid level and liver function in 2-3 months Hypothyroidism 12/22/2011 Benign hypertensive cardiomyopathy with heart fa ilure 12/22/2011 Assessment & Plan (05/27/2024 12:49 PM EDT): Hypertension currently is well-controlled at 106/67 Continue amlodipine, hydralazine, Imdur, Toprol and spironolactone Currently renal function normal, no acute concerns. Tobacco user 12/22/2011 Resolved Problems Problem Noted Date Diagnosed Date Resolved Date BMI 36.0-36.9,adult 09/13/2022 07/17/20 24 Paroxysmal atrial fibrillation 06/17/2020 07/17/2024 Assessment & Plan (05/27/2024 12:56 PM EDT): [id number]= 6-7 at least with Age, Sex, CHF, CAD/Vascular disease, HTN, DM Currently per assessment she appears to be in rhythm heart rate well-controlled with metoprolol 200 mg daily and she remains on Eliquis anticoagulation without any bleeding tendencies or concerns. Encounters Date Type Department Care Team Description 02/13/2025 10:15 PM EDT Ancillary Procedure [facility] [address] [place] [address] Pre-operative cardiovascular examination, ICD in place 02/12/2025 5:15 PM EDT Ancillary Procedure [facility] [address] [place] [address] Pre-operative cardiovascular examination, ICD in place 02/11/2025 Orders Only [facility] [address] [place] [address] Marisol Khoury MD 01/29/2025 Orders Only [facility] [address] [place] [address] Brian Potter MD 01/21/2025 1:15 PM EDT Office Visit [place] [address] [place] [address] Brian Potter MD Biventricular ICD (implantable cardioverter-defibrill ator) in place (Primary Dx) 01/13/2025 9:20 AM EDT Ancillary Procedure [facility] [address] [place] [address] Pre-operative cardiovascular examination, ICD in place 12/31/2024 Orders Only [facility] [address] [place] [address] Marisol Khoury MD from Last 3 Months Family History Medical History Relation Name Comments Coronary artery disease Father Heart attack Father Stroke Mother Relation Name Status Comments Father Mother Sister Social History Tobacco Use Types Packs/Day Years Used Date Smoking Tobacco: Former Cigarettes Passive Smoke Exposure: Past Smokeless Tobacco: Never Tobacco Cessation:Counseling Given: Not Answered Alcohol Use Standard Drinks/Week Comments Not Currently 0 (1 standard drink = 0.6 oz pur e alcohol) Humiliation, Afraid, Rape, and Kick questionnair e Answer Date Recorded Within the last year, have y ou been afraid of your partner or ex-partner? No 09/12/2024 Within the last year, have y ou been humiliated or emotionally abused in other ways by your partner or ex-partner? No Within the last year, have y ou been kicked, hit, slapped, or otherwise physically hurt by your partner or ex-partner? No 09/12/2024 Within the last year, have y ou been raped or forced to have any kind of sexual activity by your partner or ex-partner? No 09/12/2024 PHQ-2 Answer Date Recorded Patient Health Questionnaire-2 Score 0 09/12/2024 Transportation Answer Date Recorded In the past 12 months, has l ack of transportation kept you from medical appointments or from getting medications? No 10/2024 In the past 12 months, has l ack of transportation kept you from meetings, work, or from getting things needed for daily living? No 09/12/2024 Housing Stability Vital Sign Answer Tyree e Recorded In the last 12 months, was t here a time when you were not able to pay the mortgage or rent on time? No 09/12/2024 In the past 12 months, how m any times have you moved where you were living? 1 09/12/2024 At any time in the past 12 m [facility], were you homeless or living in a usp (including now)? No 09/12/2024 Hunger Vital Sign Answer Date Recorded Within the past 12 months, y ou worried that your food would run out before you got the money to buy more. Never true 09/12/19 25 Within the past 12 months, t he food you bought just didn't last and you didn't have money to get more. Never true 09/12/2024 Comments No Sex and Gender Information Value Date Recorded Sex Assigned at Not on file Legal Sex Female 10:03 PM EDT Gender Identity Not on file Sexual Orientation Not on file Last Filed Vital Signs Vital Sign Reading Time Taken Comments Blood Pressure 135/67 01/21/2025 1:10 PM EDT Pulse 75 01/21/2025 1:10 PM EDT Temperature - - Respiratory Rate 12 09/12/2024 2:18 PM EST Oxygen Saturation 95% 01/21/2025 1:10 PM EDT Inhaled Oxygen Concentration - - Weight 62.1 kg (137 lb) 01/21/2025 1:10 PM EDT Height 152.4 cm (5') 01/21/2025 1:10 PM EDT Body Mass Index 26.76 01/21/2025 1:10 PM EDT Plan of Treatment Health Maintenance Due Date Last Done Comments Diabetes: Hemoglobin A1C 1940 Medicare Annual Wellness (AWV) 1940 Diabetes: Retinopathy Screening 1952 Diabetes: Urine Protein Screening 1961 Pneumococcal Vaccine: 50+ Years (1 of 2 - PCV) 1961 Adult Tetanus 1964 Zoster Vaccines (1 of 2) 1992 COVID-19 Vaccine ( season) 2024 08/20/2021, 11/06/2020, 10/09/2020 Influenza Vaccine (#1) 2025 , 06/10/2020, 06/07/2017, Additional history exists Depression Screening 09/12/2025 09/12/2024 Fall Risk Screening 09/12/2025 09/12/2024 HIB Vaccines Aged Out No longer eligi ble based on patient's age to complete this topic HPV Vaccines Aged Out No longer eligi ble based on patient's age to complete this topic IPV Vaccines Aged Out No longer eligi ble based on patient's age to complete this topic Meningococcal B Vaccine Aged Out No l onger eligible based on patient's age to complete this topic Meningococcal Vaccine Aged Out No min rory eligible based on patient's age to complete this topic Rotavirus Vaccines Aged Out No longer eligible based on patient's age to complete this topic Medical Devices Implanted Type Area Tool Dresser Device Identifier Shelf Expiration Date Model / Serial / Lot Vigilant X4 Outreach Educator-D Is-1/Df4/Is4 Implanted:Qty: 1 on 07/10/2024 by Brian Potter MD at [facility] BRIDGE GAME DIRECTOR-D ICD Left: Chest [employer] [id number] 01/15/2026 [id number] / [id number] / [place] 4-Front S Active Fix Single Coil 59cm Implanted:Qty: 1 on 07/10/2024 by Brian Potter MD at [facility] Lead [employer] [id number] 03/06/2026 [id number] / [id number] / Lead,Acuity X4,Spiral L - [id number] - [id number] Implanted:Qty: 1 on 07/10/2024 by Brian Potter MD at [facility] Lead Left: Chest [employer] [id number] 02/06/2026 [id number] / [id number] / Procedures Procedure Name Priority Date/Time Associated Diagnosis Comments CARDIAC DEVICE CHECK CHECK - REMOTE Routine 02/21/2025 11:05 AM EDT Pre-operative cardiovascular examination, ICD in place CARDIAC DEVICE CHECK CHECK - REMOTE Routine 02/21/2025 10:12 AM EDT Pre-operative cardiovascular examination, ICD in place CARDIAC DEVICE CHECK - REMOTE - ICD Routine 02/11/2025 12:00 AM EDT CARDIAC DEVICE CHECK - REMOTE - ICD Routine 01/29/2025 12:00 AM EDT CARDIAC DEVICE CHECK CHECK - REMOTE Routine 01/21/2025 9:54 AM EDT Pre-operative cardiovascular examination, ICD in place CARDIAC DEVICE CHECK - REMOTE - ICD Routine 12/31/2024 12:00 AM EDT from Last 3 Months Results * CARDIAC DEVICE CHECK - REMOTE - ICD (02/21/2025 11:05 AM EDT) Only the most recent of3 resultswithin the time period is included. us Brian Potter MD CV IMPLANTABLE CARDIAC DEVICE AR OCEDURES Final Result CPACS * Cardiac device check - Remote ICD (02/11/2025 12:00 AM EDT) Only the most recent of3 resultswithin the time period is included. Anatomical Region Laterality Modality Other 02/11/2025 us Marisol Khoury MD CV IMPLANTABLE CARDIAC DEVICE PROCEDURES Final Result from Last 3 Months Insurance MEDICARE Care Teams Accordion Repairer Relationship Specialty Start Date End Date Gil Blake MD [address] [address] PCP - General 09/16/22
--- OUTSIDE RECORDS SUMMARY | 2025-03-19 15:07 | XMS_ITS | Clinical Summary ---
Author Organization [facility] Address [address] [place] [address] Care Team Providers Care V/Stol Landing Signal Officer Name Role Phone Gil Blake MD Primary Care Provider [phone] Allergies No known active allergies Medications albuterol (2.5 MG/3ML) 0.083% nebulizer solution USE 1 VIAL IN NEBULIZER 4 TIMES DAILY NEEDED Active amLODIPine (Norvasc) 5 MG tablet Take 1 tablet by mouth Daily Active anastrozole (Arimidex) 1 MG chemo tablet Take 1 mg by mouth Daily. Active Eliquis 5 MG tablet TAKE 1 TABLET BY MOUTH IN THE MORNING AND AT BEDTIME 4 Active febuxostat (Uloric) 40 MG tablet Take 40 mg by mouth in the morning. Active ferrous sulfate 325 (65 Fe) MG tablet Take 325 mg by mouth in the morning and 325 mg in the evening. 4 Active hydrALAZINE (Apresoline) 100 MG tablet Take 1 tablet by mouth in the morning and 1 tablet in the evening and 1 tablet before bedtime. Active isosorbide mononitrate ER (Imdur) 60 MG 24 hr tablet Take 1 tablet by mouth Daily Active Jardiance 10 MG Take 10 mg by mouth in the morning. 4 Active levothyroxine (Synthroid, Levoxyl) 112 MCG tablet Take 1 tablet by mouth Daily Active liothyronine (Cytomel) 5 MCG tablet Take 2 tablets by mouth Daily Active metoprolol succinate XL (Toprol-XL) 200 MG 24 hr tablet Take 1 tablet by mouth Daily Active simvastatin (Zocor) 20 MG tablet Take 1 tablet by mouth Daily Active Active Problems No known active problems Encounters Date Type Department Care Team Description 01/30/2025 2:40 PM EDT Office Visit [facility] [address] [facility] [address] [place] [id number] Peyman Roper DPM Neoplasm of uncertain behavior of skin (Primary Dx); Diabetes mellitus due to underlying condition with diabetic polyneuropathy, 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 snf insulin use (HCC); Pain due to onychomycosis of toenails of both feet; Venous insufficiency 01/30/2025 Bamboo flowsheet [facility] [address] [facility] [address] [place] [phone] Peyman Roper DPM 01/30/2025 Travel from Last 3 Months Family History Medical History Relation Name Comments Arthritis Mother Cancer Mother Diabetes Mother Heart disease Mother Hypertension Mother Relation Name Status Comments Father Mother Social History Tobacco Use Types Packs/Day Years Used Date Smoking Tobacco: Former Cigarettes Smokeless Tobacco: Never Tobacco Cessation:Counseling Given: Yes Alcohol Use Standard Drinks/Week Comments Never 0 (1 standard drink = 0.6 oz pur e alcohol) Comments Unknown Sex and Gender Information Value Date Recorded Sex Assigned at Not on file Legal Sex Female 7:38 PM EDT Gender Identity Not on file Sexual Orientation Not on file Last Filed Vital Signs Vital Sign Reading Time Taken Comments Blood Pressure - - Pulse - - Temperature - - Respiratory Rate 18 01/30/2025 2:42 PM EDT Oxygen Saturation - - Inhaled Oxygen Concentration - - Weight 65.8 kg (145 lb) 01/30/2025 2:42 PM EDT Height 152.4 cm (5') 01/30/2025 2:42 PM EDT Body Mass Index 28.32 01/30/2025 2:42 PM EDT Plan of Treatment Upcoming Encounters Date Type Department Care Team ([facility] st Contact Info) Description 04/10/2025 3:50 PM EDT Office Visit [facility] [address] [facility] [address] [place] [phone] Peyman Roper DPM [address] [facility] [address] [place] [address] Health Maintenance Due Date Last Done Comments Pneumococcal Vaccine: 65+ Ye ars (2 of 2 - PCV) 01/19/2018 01/19/2017, 06/15/2010 Influenza Vaccine (#1) 2025 , 06/10/2020, 06/07/2017, Additional history exists Insurance [address] [place] [address] [facility] [place] [address] MEDICARE Care Teams V/Stol Landing Signal Officer Relationship Specialty Start Date End Date Gil Blake MD [address] [place] [phone] PCP - General Family Medicine 02/14/24
--- OUTSIDE RECORDS SUMMARY | 2025-03-19 15:07 | XMS_ITS | Clinical Summary ---
Author Organization Timi Garrettbaljinder [facility] Address [address] [place] [address] Care Team Providers Care Venetian Blind Machine Operator Name Role Phone Gil Blake MD Primary Care Provider [phone] Allergies Active Allergy Reactions Criticality Noted Date Comments Cefdinir Nausea And Vomiting Low 09/13/2022 Ciprofloxacin Hives,Other (See Comments) High 2017 tendon issues Oxycodone Rash Low 04/25/2019 Rash & GI upset Tramadol Diarrhea,Nausea And Vomiting Medium 023 Medications amLODIPine (NORVASC) 5 MG tablet Take 1 tablet by mouth daily 1 Active apixaban (ELIQUIS) 5 MG TABS tablet Take 1 tablet by mouth 2 times daily OK to continue for OR per Dr. Garza Active aspirin 81 MG EC tablet Take 1 tablet by mouth daily OK to continue for OR per Dr. Garza Active furosemide (LASIX) 40 MG tablet Take 1 tablet by mouth 2 times daily Active glimepiride (AMARYL) 4 MG tablet Take by mouth 2 times daily Active hydrALAZINE (APRESOLINE) 100 MG tablet Take 1 tablet by mouth 3 times daily as needed IF BP >130. Active isosorbide mononitrate (IMDUR) 60 MG extended release tablet Take 1 tablet by mouth in the morning and at bedtime Active liothyronine (CYTOMEL) 5 MCG tablet Take 2 tablets by mouth daily Active metFORMIN (GLUCOPHAGE) 500 MG tablet Take 1 tablet by mouth 2 times daily (with meals) Active Metoprolol Succinate 200 MG CS24 Take 200 mg by mouth daily Active sucralfate (CARAFATE) 1 GM tablet Take 1 tablet by mouth Before meals and at bedtime Active levothyroxine (SYNTHROID) 112 MCG tablet Take 1 tablet by mouth daily 1 Active simvastatin (ZOCOR) 20 MG tablet Take 1 tablet by mouth at bedtime Active albuterol sulfate HFA (PROVENTIL;VENT GEO;PROAIR) 108 (90 Base) MCG/ACT inhaler Inhale 2 puffs into the lungs every 6 hours as needed for Wheezing Active acetaminophen (TYLENOL) 500 MG tablet Take 2 tablets by mouth every 6 hours as needed for Pain 60 tablet 2 Active meloxicam (MOBIC) 15 MG tablet TAKE 1 TABLET BY MOUTH EVERY DAY 3 Active anastrozole (ARIMIDEX) 1 MG tablet Take 1 tablet by mouth daily 3 Active nystatin (MYCOSTATIN) 825159 UNIT/GM cream Apply topically 2 times daily. 1 each 3 3 Active Additional Information Patient taking differently: DAILY PRN, Skin folds, Reported on 03/03/2023 vitamin D3 (CHOLECALCIFERO L) 125 MCG (5000 UT) TABS tablet Take 1 tablet by mouth daily 3 Active albuterol (PROVENTIL) (2.5 MG/3ML) 0.083% nebulizer solution Take 3 mLs by nebulization every 6 hours as needed for Wheezing Active Cavalier-3 Fatty Acids (FISH OIL OMEGA-3 PO) Take 1 capsule by mouth in the morning and at bedtime 1000/ 300 Active potassium chloride (KLOR-CON M20) 20 MEQ extended release tablet 1 tablet with food Orally twice daily for 30 days Active febuxostat (ULORIC) 40 MG TABS tablet Take 1 tablet by mouth daily 3 Active Active Problems Problem Noted Date Diagnosed Date S/p Vaginal and Vulvar Biops ies, CO2 laser vaporization of vaginal and vulvar lesions 06/28/22 06/28/2022 S/p Partial vaginectomy with Ultrasonic Scalpel 06/15/21 06/15/2021 HGSIL Pap smear of vagina 04/13/2021 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 Resolved Problems Problem Noted Date Diagnosed Date Resolved Date Vaginectomy w/ Cysto 12/13/21 12/13/2021 01/12/2022 Immunizations Immunization Administration Dates Next Due COVID-19, DONAVAN owusu r, Primary or Immunocompromised, (age 12y+), IM, 100 mcg/0.5mL 11/06/2020,10/09/2020 Family History Medical History Relation Name Comments Heart Disease Father High Blood Pressure Father Cancer Mother Diabetes Mother Heart Disease Mother High Blood Pressure Mother Breast Cancer Sister Relation Name Status Comments Father Mother Other daughter Other breast & hyster ectomy due to cancer Sister Social History Tobacco Use Types Packs/Day Years Used Date Smoking Tobacco: Former Cigarettes 1 55 1 [id number] Passive Smoke Exposure: Past Smokeless Tobacco: Never Tobacco Cessation:Counseling Given: Not Answered Alcohol Use Standard Drinks/Week Comments Not Currently 0 (1 standard drink = 0.6 oz pur e alcohol) Interpersonal Safety Domain Source: IP Abuse Scr eening Answer Date Recorded How often does anyone, melchor telles family and friends, physically hurt you? Not on file 03/03/2023 How often does anyone, melchor telles family and friends, scream or curse at you? Not on file 03/03/2023 How often does anyone, melchor telles family and friends, insult or talk down to you? Not on file 03/03/2023 How often does anyone, melchor telles family and friends, threaten you with harm? Not on file 03/03/2023 Read-Only, Retired: Physical Abuse Denies 03/03/2023 Read-Only, Retired: Verbal Abuse Denies 03/03/2023 Read-Only, Retired: Emotional abuse Denies 03/03/2023 Read-Only, Retired: Financial Abuse Denies 03/03/2023 Read-Only, Retired: Sexual abuse Denies 03/03/2023 Comments No Sex and Gender Information Value Date Recorded Sex Assigned at Not on file Legal Sex Female 7:39 PM EST Gender Identity Not on file Sexual Orientation Not on file Last Filed Vital Signs Vital Sign Reading Time Taken Comments Blood Pressure 138/65 07/12/2023 1:23 PM EDT Pulse 67 07/12/2023 1:23 PM EDT Temperature 36.4 C (97.6 F) 07/12/2023 1:23 PM EDT Respiratory Rate 16 03/06/2023 8:30 AM EDT Oxygen Saturation 94% 07/12/2023 1:23 PM EDT Inhaled Oxygen Concentration - - Weight 82.4 kg (181 lb 9.6 oz) 07/12/2023 1:23 P M EDT Height 154.9 cm (5' 0.98 ) 07/12/2023 1:23 PM ED T Body Mass Index 34.33 07/12/2023 1:23 PM EDT Plan of Treatment Health Maintenance Due Date Last Done Comments Lipids 1952 Depression Screen 1954 DTaP/Tdap/Td vaccine (1 - Tdap) 1961 Pneumococcal 50+ years Vacci ne (1 of 1 - PCV) 1992 Shingles vaccine (1 of 2) 1992 DEXA (modify frequency per FRAX score) 1997 Respiratory Syncytial Virus (RSV) or age 60 yrs+ (1 - 1-dose 75+ series) 2017 Annual Wellness Visit (Medicare) 08/07/2023 COVID-19 Vaccine (4 - 2023-2 5 season) 2024 08/20/2021, 11/06/2020, 10/09/2020 Flu vaccine (#1) 04/11/2025 07/01/2021, 06/10/2020, 06/07/2017 Hepatitis A vaccine Aged Out No longe r eligible based on patient's age to complete this topic Hepatitis B vaccine Aged Out No longe r eligible based on patient's age to complete this topic Hib vaccine Aged Out No longer eligi ble based on patient's age to complete this topic Meningococcal (ACWY) vaccine Aged Out No longer eligible based on patient's age to complete this topic Meningococcal B vaccine Aged Out No l onger eligible based on patient's age to complete this topic Polio vaccine Aged Out No longer elig ible based on patient's age to complete this topic Insurance MEDICARE Member Subscriber Plan / Payer (Ef fective 2007-Present) Name:Harman Horta Relation to Subscriber:Self Name:Harman Horta Payer ID:Not on file Group ID:Not on file Type:Not on file Address: [address] [place] [address] Advance Directives * Full Code (Latest Code Status on File) Date Activated Date Inactivated Comments 03/06/2023 5:56 AM 03/06/2023 11:07 AM * Full Code Date Activated Date Inactivated Comments 06/28/2022 6:57 AM 06/28/2022 2:17 PM Care Teams Venetian Blind Machine Operator Relationship Specialty Start Date End Date Gil Blake MD [address] [facility] [place] [address] PCP - General Family Medicine 03/04/21
--- OUTSIDE RECORDS SUMMARY | 2025-03-19 15:07 | XMS_ITS | Encounter Summary ---
Author Organization Timi Garrettbaljinder [facility] Address [address] [place] [address] Care Team Providers Care Milker Machine Name Role Phone Gil Blake MD Primary Care Provider [phone] Encounter Details Date Type Department Care Team (Late st Contact Info) Description 05/21/2021 Abstract [facility] [address] [facility] [address] [place] [address] Kin Abarca MD Social History Tobacco Use Types Packs/Day Years Used Date Smoking Tobacco: Former Cigarettes Q uit: 2018 Smokeless Tobacco: Never Alcohol Use Standard Drinks/Week Comments Not Currently 0 (1 standard drink = 0.6 oz pur e alcohol) Comments No Sex and Gender Information Value Date Recorded Sex Assigned at Not on file Legal Sex Female 7:39 PM EST Gender Identity Not on file Sexual Orientation Not on file COVID-19 Exposure Response Date Recorded In the last month, have you been in contact with someone who was confirmed or suspected to have Coronavirus / COVID-19? No / Unsure 05/12/2021 12:55 PM EDT documented as of this encounter Plan of Treatment Not on file documented as of this encounter Visit Diagnoses Not on filedocumented in this encounter Care Teams Milker Machine Relationship Specialty Start Date End Date Gil Blake MD [address] [place] [address] PCP - General Family Medicine 03/04/21 documented as of this encounter
--- OUTSIDE RECORDS SUMMARY | 2025-03-19 15:07 | XMS_ITS | Encounter Summary ---
Author Organization [facility] Address [address] [place] [address] Care Team Providers Care Injection Molding Operator Name Role Phone Gil Blake MD Primary Care Provider [phone] Encounter Details Date Type Department Care Team (Late st Contact Info) Description 12/31/2024 Orders Only [facility] [address] [place] [address] Marisol Khoury MD [address] [place] [address] Social History Tobacco Use Types Packs/Day Years Used Date Smoking Tobacco: Former Cigarettes Passive Smoke Exposure: Past Smokeless Tobacco: Never Alcohol Use Standard Drinks/Week [...] any time in the past 12 m [facility], were you homeless or living in a jail (including now)? No 09/12/2024 Hunger Vital Sign [...] on file Sexual Orientation Not on file documented as of this encounter Plan of Treatment Not on file documented as of this encounter Procedures Procedure Name Priority Date/Time Associated Diagnosis Comments CARDIAC DEVICE CHECK - REMOTE - ICD Routine 12/31/2024 12:00 AM EDT documented in this encounter Results * Cardiac device check - Remote ICD (12/31/2024 12:00 AM EDT) Anatomical Region Laterality Modality Other 12/31/2024 Marisol Khoury MD CV IMPLANTABLE CARDIAC DEVICE PROCEDURES Final Result documented in this encounter Visit Diagnoses Not on filedocumented in this encounter Care Teams Injection Molding Operator Relationship Specialty Start Date End Date Gil Blake MD [address] [facility] [place] [address] [address] PCP - General 09/16/22 documented as of this encounter
--- OUTSIDE RECORDS SUMMARY | 2025-03-19 15:07 | XMS_ITS ---
Author Organization [facility] Address [address] [place] [address] Care Team Providers Care Bridge Toll Collector Name Role Phone Gil Blake MD Primary Care Provider [phone] Active Problems Problem Noted Date Diagnosed Date [...] heart failure is stable without worsening symptoms [facility] -currently patient is euvolemic without exacerbation. She has returned home from detention facility and presents today with granddaughter who [...] (09/13/2022): Added automatically from request for surgery [id number] Atherosclerosis of [place] co ronary artery of [place] heart without angina pectoris 01/16/2017 Assessment & [...] normal, no acute concerns. Tobacco user 12/22/2011 Current Treatment and Therapy Plans No current plan information found. Past Treatment and Therapy Plans No past plan information found. Lifetime Dose Tracking * Chemical Lifetime Dose Automatic Entry Manual Entr y Fluoro Time 17.9 minutes 0 minutes 17.9 minutes Air Kerma 399 mGy 0 mGy 399 mGy Resolved Problems Problem Noted Date Diagnosed Date Resolved Date BMI 36.0-36.9,adult 09/13/2022 07/17/20 24 Paroxysmal atrial fibrillation 06/17/2020 07/17/2024 Assessment & Plan (05/27/2024 12:56 PM EDT): [id number]= 6-7 at least with Age, Sex, CHF, CAD/Vascular disease, HTN, DM Currently per assessment she appears to be in rhythm heart rate well-controlled with metoprolol 200 mg daily and she remains on Eliquis anticoagulation without any bleeding tendencies or concerns.
--- OUTSIDE RECORDS SUMMARY | 2025-03-19 15:07 | XMS_ITS | Encounter Summary ---
Author Organization [facility] Address [address] [place] [id number] Care Team Providers Care Insulator Tester Name Role Phone Gil Blake MD Primary Care Provider [phone] Source Comments In the event this information is protected by the Federal Confidentiality of Alcohol and Drug AbusePatient Records regulations: The Federal rules restrict any use of the information to criminally investigate or prosecute any alcohol or drug abuse patient.[facility] Reason for Visit * Reason Comments Refill Request Encounter Details Date Type Department Care Team (Late st Contact Info) Description 10/03/2024 Refill Hematology/Oncology [address] [place] [address] Josiah Farris PA-C [address] [place] [address] Refill Request Social History Tobacco Use Types Packs/Day Years Used Date Smoking Tobacco: Former Cigarettes 0.5 50 1 - 06/28/2018 Passive Smoke Exposure: Past Smokeless Tobacco: Never Alcohol Use Standard Drinks/Week Comments No 0 (1 standard drink = 0.6 oz pur e alcohol) PHQ-2 Answer Date Recorded PHQ-2 score 0 02/14/2023 Area Deprivation Index Answer Date Radames rded National Score (1-100), lower number is lower ri sk 78 02/14/2023 State Score (1-10), lower number is lower risk 6 02/14/2023 Data from: https://www.neighborhoodatlas.[facility]/. Last address used for calculation [address] 02/14/2023 Comments No Sex and Gender Information Value Date Recorded Sex Assigned at Not on file Legal Sex Female 11:34 AM EDT Gender Identity Not on file Sexual Orientation Not on file documented as of this encounter Miscellaneous Notes * Telephone Encounter - Josiah Farris PA-C - 10/07/2024 12:07 PM EST The following approved medication requests have been transmitted electronically. Requested Prescriptions Signed Prescriptions Disp Refills anastrozole (ARIMIDEX) 1 mg tablet 90 tablet 3 Sig: TAKE 1 TABLET BY MOUTH EVERY DAY Authorizing Provider: JOSIAH FARRIS PA-C documented in this encounter Plan of Treatment Upcoming Encounters Date Type Department Care Team (Late st Contact Info) Description 04/08/2025 1:15 PM EDT Office Visit [facility] [address] [place] [address] labs 04/08/2025 1:20 PM EDT Visit (SP) Office Hematology/Oncology [address] [place] [address] Vaibhav Ashton MD [facility] [place] [address] 6 month follow up documented as of this encounter Visit Diagnoses Not on filedocumented in this encounter Care Teams Insulator Tester Relationship Specialty Start Date End Date Gil Blake MD PCP - General Family Medicine 01/05/17 documented as of this encounter
--- OUTSIDE RECORDS SUMMARY | 2025-03-19 15:07 | XMS_ITS | Clinical Summary ---
Author Organization [facility] Address [address] [place] [address] Care Team Providers Care Stud Beef Cattle Farmer Name Role Phone Gil Blake MD Primary Care Provider [phone] Allergies Active Allergy Reactions Criticality Noted Date Comments Cefdinir Other: See Comments,Vomiting 09/13/2022 Ciprofloxacin Other: See Comments 09/29/2017 tendon issues Oxycodone-Acetaminophen Intolerance,GI Upset Tramadol Mental Status Change 11/09/2022 Medications amLODIPine (NORVASC) 5 mg tablet Take by mouth once daily. Active metFORMIN (GLUCOPHAGE) 500 mg tablet Take 500 mg by mouth twice daily with meals. Active albuterol (PROVENTIL) 2.5 mg /3 mL (0.083 %) nebulizer solution Use 2.5 mg via nebulizer as needed. Active simvastatin (ZOCOR) 20 mg tablet Take 40 mg by mouth daily at bedtime. Cut in half Active Ftzaw-[id number]-MWY-EPA- Fish Oil 1,000 mg (120 mg-180 mg) cap Take 2 g by mouth twice daily. Active isosorbide mononitrate ER (IMDUR) 60 mg 24 hr tablet Take 60 mg by mouth twice daily. Active levothyroxine (SYNTHROID) 112 mcg tablet Take 125 mcg by mouth once daily. 7 Active aspirin, enteric coated (ASPIRIN, ENTERIC COATED) 81 mg EC tablet Take 81 mg by mouth once daily. Active BREO ELLIPTA 100-25 mcg/dose inhaler Inhale 1 Inhalation as instructed once daily. 7 Active citalopram (CELEXA) 20 mg tablet 11 9 Active apixaban (ELIQUIS) 2.5 mg tab(s) Take 5 mg by mouth twice daily. Active hydrALAZINE (APRESOLINE) 100 mg tablet Take 100 mg by mouth three times daily. 11 9 Active METOPROLOL SUCCINATE ORAL 200 mg. Activ e furosemide (LASIX) 20 mg tablet Take 40 mg by mouth twice daily. Active acetaminophen (TYLENOL EXTRA STRENGTH) 500 mg tablet Take 2 tablets by mouth every 6 hours as needed for Pain. 60 tablet 0 Active Additional Information Patient taking differently: 650 mgORAL EVERY 6 HOURS NEEDED, pain, Reason: Dosage Adjustment, Reported on 02/14/2023 sucralfate (CARAFATE) 1 gram tablet Take 1 g by mouth four times daily. Active liothyronine (CYTOMEL) 5 mcg tablet Take 5 mcg by mouth once daily. Active potassium chloride 20 mEq TbER TAKE 1 TABLET BY MOUTH THREE TIMES A DAY DO NOT CRUSH, CHEW, OR SPLIT. 2 Active meloxicam (MOBIC) 15 mg tablet Take 15 mg by mouth once daily. 3 Active cholecalciferol (VITAMIN D-3) 5,000 unit tab Take 5,000 Units by mouth once daily. Active febuxostat (ULORIC) 40 mg tab Take 1 tablet by mouth every afternoon. 3 Active predniSONE (DELTASONE) 5 mg tablet TAKE 6 TABLETS ON DAYS 1-3 DIRECTED AND DECREASE BY 1 TAB EVERY 3 DAYS 3 Active anastrozole (ARIMIDEX) 1 mg tablet Take 1 tablet by mouth once daily. 90 tablet 1 10/08/2024 1:44 PM EST 5 Active Active Problems Problem Noted Date Diagnosed Date Stage 3a chronic kidney disease 02/14/2023 VAIN II (vaginal intraepithelial neoplasia grade II) 10/13/2017 Overview (10/13/2017): Added automatically from request for surgery [id number] Vaginal lesion 01/20/2017 Essential hypertension 01/16/2017 Type 2 diabetes mellitus wit hout complication, without long-term current use of insulin 01/16/2017 Hypothyroidism 01/16/2017 Dyslipidemia 01/16/2017 Atherosclerosis of [place] co ronary artery of [place] heart without angina pectoris 01/16/2017 S/P coronary artery stent placement 01/16/2017 Moderate smoker (20 or less per day) 01/16/2017 PAD (peripheral artery disease) 01/16/2017 Hypertension DM type 2 (diabetes mellitus, type 2) Immunizations Immunization Administration Dates Next Due influenza (HD-IIV3) vaccine, age 65+ yr, high dose, trivalent, PF (FLUZONE HIGH-DOSE) 06/07/2017,06/29/2015,06/23/2014 influenza (HD-IIV4) vaccine, age 65+ yr, high dose, quadrivalent, PF (FLUZONE HIGH-DOSE) 07/01/2021 influenza (aIIV3) vaccine, a ge 65+ yr, trivalent, PF (FLUAD) 06/10/2020 influenza vaccine, whole virus 06/27/2007 pneumococcal polysaccharide (PPV23) vaccine, 23 valent (PNEUMOVAX 23) 01/19/2017,06/15/2010 Family History Medical History Relation Comments Arthritis Father Asthma Father Cancer Father Hypertension Father heart disease Father Hyperlipidemia Mother Hypertension Mother cerebrovascular accident hypothyroid Mother heart disease Mother non-insulin dependent diabetes mellitus Mother Breast Cancer Other Breast Cancer Sister Relation Status Comments Father Mother Other Sister Social History Tobacco Use Types Packs/Day Years Used Date Smoking Tobacco: Former Cigarettes 0.5 50 1 - 06/28/2018 Passive Smoke Exposure: Past Smokeless Tobacco: Never Tobacco Cessation:Counseling Given: Not Answered Alcohol Use Standard Drinks/Week Comments No 0 (1 standard drink = 0.6 oz pur e alcohol) PHQ-2 Answer Date Recorded PHQ-2 score 0 02/14/2023 Area Deprivation Index Answer Date Radames rded National Score (1-100), lower number is lower ri sk 78 02/14/2023 State Score (1-10), lower number is lower risk 6 02/14/2023 Data from: https://www.neighborhoodatlas.medicine.[facility].edu/. Last address used for calculation [address] 02/14/2023 Comments No Sex and Gender Information Value Date Recorded Sex Assigned at Not on file Legal Sex Female 11:34 AM EDT Gender Identity Not on file Sexual Orientation Not on file Last Filed Vital Signs Vital Sign Reading Time Taken Comments Blood Pressure 144/63 10/08/2024 1:02 PM EST Pulse 75 10/08/2024 1:02 PM EST Temperature 36.2 C (97.2 F) 10/08/2024 1:02 PM EST Respiratory Rate 16 10/08/2024 1:02 PM EST Oxygen Saturation 99% 10/08/2024 1:02 PM EST Inhaled Oxygen Concentration - - Weight 67.5 kg (148 lb 13 oz) 10/08/2024 1:02 PM EST Height 154.9 cm (5' 0.98 ) 10/08/2024 1:02 PM ES T Body Mass Index 28.13 10/08/2024 1:02 PM EST Plan of Treatment Upcoming Encounters Date Type Department Care Team (Late st Contact Info) Description 04/08/2025 1:15 PM EDT Office Visit [facility] Laboratory [address] [place] [address] labs 04/08/2025 1:20 PM EDT Visit (SP) Office Hematology/Oncology [address] [place] [address] [place] [address] Vaibhav Ashton MD [address] [place] [address] [place] [address] 6 month follow up Health Maintenance Due Date Last Done Comments Diabetic Foot Exam 1952 Dilated Retinal Exam 1952 Urine Albumin:Creatinine Ratio 1950 Anxiety Screening 1960 Depression Screening 1960 LDL Cholesterol 1960 DTaP,Tdap,Td Vaccine (1 - Tdap) 1961 Shingrix Vaccine (1 of 2) 1992 Medicare Annual Wellness Visit 09/11/2007 Bone Density Screening 2007 RSV Vaccine (1 - 1-dose 75+ series) 2017 Pneumococcal Vaccine: 50+ (2 of 2 - PCV) 01/19/2018 01/19/2017, 06/15/2010 HbA1C 10/29/2020 04/28/2020 Covid-19 Vaccine (4 - 2023-2 5 season) 2024 08/20/2021, 11/06/2020, 10/09/2020 Advance Directive Discussion 09/11/2024 Influenza Vaccine (#1) 2025 , 06/10/2020, 06/07/2017, Additional history exists Medical Devices Implanted Type Area Associate Professor Of Violin Device Identifier Shelf Expiration Date Model / Serial / Lot Intraocular Lens Intraocular Lens Eye - Lens Stent Stent Chest Procedures Procedure Name Priority Date/Time Associated Diagnosis Comments HEMOGLOBIN A1C Routine 04/28/2020 1:36 PM EDT Type 2 diabetes mellitus with unspecified complications (HCC) Pre-op evaluation from Last 3 Months or Most Recently Relevant to Health Maintenance Results * (ABNORMAL) HGB A1C (04/28/2020 1:36 PM EDT) Hemoglobin A1C 6.8(H) 4.3 - 5.6 % 04/28/2020 9:23 PM EDT [facility] Comment: [place] [employer] guidelines indicate that patients with HgbA1c in the range 5.7-6.4% are at increased risk for development of diabetes, and intervention by lifestyle modification may be beneficial. HgbA1c greater or equal to 6.5% is considered diagnostic of diabetes. Estimated Average Glucose 148 mg/dL 04/28/2020 9:23 PM EDT [facility] Comment: eAG: (Estimated average glucose) is a calculated value from HgbA1c and is guest relations representative of the average blood glucose level in the last 2-3 month period. Blood specimen (specimen) WHOLE BLOOD SPECIMEN / Unknown 04/28/2020 1:36 PM EDT 04/28/2020 1:38 PM EDT us Ervin Balderrama MD LABORATORY Final Result [facility] [address] [place] [address] [facility] [address] [place] [address] from Last 3 Months or Most Recently Relevant to Health Maintenance Insurance MEDICARE Member Subscriber Plan / Payer ( fective 2007-Present) Name:Harman Horta Member ID:[id number] Relation to Subscriber:Self Name:Harman Horta Subscriber ID:[id number] Payer ID:Not on file Group ID:Not on file Type:Medicare Address: [address] [place] [address] Advance Directives Documents on File Type Date Recorded Patient Roustabout Expl anation Advance Directive(s) 01/16/2017 3:59 PM Care Teams Stud Beef Cattle Farmer Relationship Specialty Start Date End Date Gil Blake MD PCP - General Family Medicine 01/05/17
--- OUTSIDE RECORDS SUMMARY | 2025-03-19 15:07 | XMS_ITS | Patient Health Record ---
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 Name Role Phone Rony Blake Primary Care Provider MATEUS BLAKE Unavailable [phone] Allergies Allergen (clinical drug ingredient) Drug/Non Drug [...] 12:50:19 PM Interpretation: Performing Lab: Notes/Report: [facility] , Amylase 68 25-115 U/L Performing Lab: see note ML - [facility] LB CBC AUTO DIFF Reviewed date:03/19/2025 12:50:19 PM Interpretation: Performing Lab: Notes/Report: [facility] , White Blood Count 8.7 4.0-11.0 10 [...] 3/uL Performing Lab: see note ML - [facility] LB LIPASE Reviewed date:03/19/2025 12:50:19 PM Interpretation: Performing Lab: Notes/Report: [facility] , Lipase 95.0 16.0-77.0 U/L Performing Lab: see note ML - [facility] LB PROF 14(COMP METB) Reviewed date:03/19/2025 12:50:19 PM Interpretation: Performing Lab: Notes/Report: [facility] , Sodium 144 136-145 mmol/L Potassium 3.0 3.5-5.1 mmol/L Chloride 101 98-107 mmol/L Carbon Dioxide 32.0 21.0-32.0 mmol/L Anion Gap 14.0 Glucose 129 74-106 mg/dL Blood Urea Nitrogen 27.0 7.0-18.0 mg/dL Creatinine 1.80 0.55-1.02 mg/dL Estimated GFR ( Roma 33 >=60 mL/min/1.73m 2 Estimated GFR (Non- Mariza 27 >=60 mL/min/1.73m 2 BUN Creatinine Ratio 15.0 Calcium 9.1 8.5-10.1 mg/dL Bilirubin Total 0.5 0.2-1.0 mg/dL Aspartate Amino Transferase 21 15-37 U/L Alanine Aminotransferase 17 14-59 U/L Alkaline Phosphatase 116 46-116 U/L Total Protein 7.0 6.4-8.2 g/dL Albumin Level 2.9 3.4-5.0 g/dL Globulin 4.1 Albumin Globulin Ratio 0.7 Performing Lab: see note ML - [facility] LB UA (URINALYSIS), COMPLETE (8 1000) - IN OFFICE Reviewed date:05/01/2024 12:39:44 PM Interpretation: Performing Lab: Notes/Report: COLOR yellow YELLOW - JAVON CLARITY clear CLEAR - CLEAR GLUCOSE ++ NEG - NEG MG/DL ALBUMIN neg NEG - NEG MG/DL BILIRUBIN neg NEG - NEG KETONES pos NEG - NEG MG/DL SPECIFIC GRAVITY 1.010 1.001 - 1.035 BLOOD, UR neg NEG - NEG MG/DL PH, UR 5.0 5.0 - 9.0 UROBILINOGEN 0.2 0.2 - 1.0 MG/DL NITRITE neg NEG - NEG PROTEIN 15 WBC, UR neg 0 - 4 /HPF UA (URINALYSIS), COMPLETE (8 1000) - IN OFFICE Reviewed date:05/02/2024 02:45:12 PM Interpretation: Performing Lab: Notes/Report: COLOR yellow YELLOW - JAVON CLARITY clear CLEAR - CLEAR GLUCOSE neg NEG - NEG MG/DL BILIRUBIN neg NEG - NEG KETONES 5 NEG - NEG MG/DL SPECIFIC GRAVITY 1.015 1.001 - 1.035 BLOOD, UR large NEG - NEG MG/DL PH, UR 5 5.0 - 9.0 UROBILINOGEN neg 0.2 - 1.0 MG/DL NITRITE neg NEG - NEG PROTEIN pos WBC, UR large 0 - 4 /HPF UA DIP NONAUTO WO MICRO (810 02) - IN OFFICE Reviewed date:03/10/2025 09:07:23 PM Interpretation: Performing Lab: Notes/Report: COLOR light yellow CLARITY clear GLUCOSE neg BILIRUBIN neg KETONE neg SPECIFIC GRAVITY 1.010 BLOOD neg PH 5 PROTEIN neg UROBILINOGEN neg NITRITE neg LEUKOCYTE ESTERASE neg COVID-19, Flu A+B IH Reviewed date:03/10/2025 09:07:23 PM Interpretation: Performing Lab: Notes/Report: COVID - FLU A - FLU B - Control + UA DIP NONAUTO WO MICRO (810 02) - IN OFFICE Reviewed date:03/10/2025 09:07:23 PM Interpretation: Performing Lab: Notes/Report: COLOR pale yellow CLARITY CLEAR GLUCOSE NEG BILIRUBIN NEG KETONE NEG SPECIFIC GRAVITY 1.010 BLOOD NEG PH 7 PROTEIN NEG UROBILINOGEN NEG NITRITE NEG LEUKOCYTE ESTERASE TRACE CA echo doppler complete Reviewed date:06/06/2024 06:34:35 PM Interpretation: Performing Lab: Notes/Report: Source Facility: [place] [address] Cardiology Report Signed Patient: OSCAR HORTA MR#: [id number] : 1940 Acct:[id number] Age/Sex: 83 / F ADM Date: 06/04/24 Loc: CARD Attending Dr: CHERYL FARIA Ordering Physician: CHERYL FARIA Date of Service: 06/04/24 Procedure(s): CA echo doppler complete Accession Number(s): [id number] cc: CHERYL FARIA; Mateus Blake M.D. Patient Name: OSCAR HORTA MR#: [id number] : 1940 Exam Date: 06/04/2024 Ordering Doctor: CHERYL FARIA ECHOCARDIOGRAM REPORT PROCEDURE: CA ECHO DOPPLER COMPLETE INDICATIONS: Heart failure with reduced EF COMPARISON: None. DESCRIPTION: COMPLETE ECHOCARDIOGRAM Real-time transthoracic echocardiography with 2D, M-mode, spectral and color flow Doppler performed. QUALITY: Technical quality was good. LEFT VENTRICLE: Normal chamber size. Normal left ventricular wall thickness. Systolic function is moderately to severely reduced. There is global hypokinesis with abnormal septal motion likely related to bundle branch block. LV EF: Estimated left ventricular ejection fraction is moderate to severely reduced at 30-35% DIASTOLIC: Not adequately assessed due to heart rhythm. ATRIAL SEPTUM: LEFT ATRIUM: Severe dilatation. RIGHT ATRIUM: Severe dilatation. RIGHT VENTRICLE: Normal chamber size. Normal right ventricular systolic function. TRICUSPID VALVE: Normal mobility and thickness. No stenosis with mild regurgitation. No evidence of pulmonary hypertension. RVSP is 26 mmHg. MITRAL VALVE: Mildly thickened with normal mobility. No evidence of mitral valve stenosis. Mitral annular calcification. Moderate mitral regurgitation. AORTIC VALVE: Normal trileaflet appearance. Mildly calcified aortic valve. Mildly diminished mobility. No significant aortic valve stenosis. Trivial aortic regurgitation. AORTIC ROOT: Normal diameter and appearance. PULMONIC VALVE: Normal thickness and mobility. No stenosis. No regurgitation. PERICARDIUM: No evidence of pericardial effusion. IVC: Normal size with partial collapse. PLEURA: CONCLUSION: 1. The left ventricle is normal in size and exhibits moderately to severely reduced systolic function with global hypokinesis. Estimated LVEF is 30 to 35%. 2. Normal right ventricular size and systolic function. 3. Moderate mitral regurgitation. 4. Mild tricuspid regurgitation. 5. Normal right-sided pressures. Adult Echocardiography Procedure Report Left Ventricle LVEDD (3.7 - 5.6 cm): 5.12 cm LVESD (2.2 - 4.0 cm): 4.49 cm LVIVS thickness (0.6 - 1.2 cm): 1.00 cm LVPW thickness (0.5 - 1.0 cm): 0.85 cm e': 0.09 m/s E - e': 11.75 LVOT Max Gradient: 1.78 mm[Hg] LVOT Area (cm2): 0.67 m/s Peak Velocity (LVOT): 0.67 m/s Mean Velocity (LVOT): 0.49 m/s LVOT Diameter 1.86 cm Left Ventricular Ejection Fraction: 30-35 % Left Atrium LA Volume Index (2D A2C): 61.96 ml/m2 Left Atrium Systolic Dimension: 3.68 cm Mitral Valve Mitral Valve E-Wave Peak Velocity: 1.03 m/s Right Ventricle RV Internal Diastolic Dimension: 3.54 cm Aorta AO Root Diam: 2.97 cm Ascending Ao Diam: 2.64 cm Aortic Valve AoV Area (Peak Ricky): 1.09 cm2, 1.06 cm2 AoV Area (VTI): 1.14 cm2, 1.16 cm2 Peak Velocity(Antegrade Flow): 1.71 m/s, 1.63 m/s Peak Gradient(Antegrade Flow): 11.75 mm[Hg], 10.57 mm[Hg] Mean Velocity(Antegrade Flow): 1.18 m/s, 1.14 m/s Mean Gradient(Antegrade Flow): 6.40 mm[Hg], 5.96 mm[Hg] Velocity Time Integral: 32.40 cm, 33.54 cm Tricuspid Valve Peak Velocity (Regurgitant Flow): 2.39 m/s, 2.26 m/s, 2.42 m/s Pulmonic Valve Mean Gradient: 1.74 mm[Hg] Mean Velocity: 0.61 m/s Peak Velocity: 0.97 m/s, 0.95 m/s Peak Gradient: 3.74 mm[Hg], 3.58 mm[Hg] Right Atrium Right Atrium Systolic Pressure: 62.78 ml, 62.78 ml Dictated by: Jose Maria Palacio M.D. on 06/06/2024 at 17:18 Approved by: Jose Maria Palacio M.D. 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 Patient Name: OSCAR HORTA MR#: [id number] : 1940 Exam Date: 06/04/2024 Ordering Doctor: GIGI FARIA ECHOCARDIOGRAM REPORT PROCEDURE: CA ECHO DOPPLER COMPLETE INDICATIONS: Heart failure with reduced EF COMPARISON: None. DESCRIPTION: COMPLET E ECHOCARDIOGRAM Real-time transthoracic echocardiography wit h 2D, M-mode, spectral and color flow Doppler performed. QUALITY: Technical quality was good. LEFT VENTRICLE: Norm al chamber size. Normal left ventricular wall thickness. Systolic function is moderately to severely reduced. There is global hypokinesis w ith abnormal septal motion likely related to bundle branch block. LV EF: Estimated lef t ventricular ejection fraction is moderate to severely reduced at 30-35% DIASTOLIC: Not adequ ately assessed due to heart rhythm. ATRIAL SEPTUM: LEFT ATRIUM: Severe dilatation. RIGHT ATRIUM: Severe dilatation. RIGHT VENTRICLE: Nor mal chamber size. Normal right ventricular systolic function. TRICUSPID VALVE: Nor mal mobility and thickness. No stenosis with mild regurgitation. No evidence of pulmonary hypertension. RVSP is 26 mmHg. MITRAL VALVE: Mildly thickened with normal mobility. No evidence of mitral valve stenosi s. Mitral annular calcification. Moderate mitral regurgitation. AORTIC VALVE: Normal trileaflet appearance. Mildly calcified aortic valve. Mildly dimini shed mobility. No significant aortic valve stenosis. Trivial aortic regurgitation. AORTIC ROOT: Normal diameter and appearance. PULMONIC VALVE: Norm al thickness and mobility. No stenosis. No regurgitation. PERICARDIUM: No evid ence of pericardial effusion. IVC: Normal size wit h partial collapse. PLEURA: CONCLUSION: 1. The left ventricl e is normal in size and exhibits moderately to severely reduced systolic fun ction with global hypokinesis. Estimated LVEF is 30 to 35%. 2. Normal right ventricular size and systolic function. 3. Moderate mitral regurgitation. 4. Mild tricuspid regurgitation. 5. Normal right-side d pressures. Adult Echocardiograp hy Procedure Report Left Ventricle LVEDD (3.7 - 5.6 cm) : 5.12 cm LVESD (2.2 - 4.0 cm) : 4.49 cm LVIVS thickness (0.6 - 1.2 cm): 1.00 cm LVPW thickness (0.5 - 1.0 cm): 0.85 cm e': 0.09 m/s E - e': 11.75 LVOT Max Gradient: 1 .78 mm[Hg] LVOT Area (cm2): 0.67 m/s Peak Velocity (LVOT) : 0.67 m/s Mean Velocity (LVOT) : 0.49 m/s LVOT Diameter 1.86 cm Left Ventricular Eje ction Fraction: 30-35 % Left Atrium LA Volume Index (2D A2C): 61.96 ml/m2 Left Atrium Systolic Dimension: 3.68 cm Mitral Valve Mitral Valve E-Wave Peak Velocity: 1.03 m/s Right Ventricle RV Internal Diastoli c Dimension: 3.54 cm Aorta AO Root Diam: 2.97 cm Ascending Ao Diam: 2 .64 cm Aortic Valve AoV Area (Peak Ricky): 1.09 cm2, 1.06 cm2 AoV Area (VTI): 1.14 cm2, 1.16 cm2 Peak Velocity(Antegr keerthi Flow): 1.71 m/s, 1.63 m/s Peak Gradient(Antegr keerthi Flow): 11.75 mm[Hg], 10.57 mm[Hg] Mean Velocity(Antegr keerthi Flow): 1.18 m/s, 1.14 m/s Mean Gradient(Antegr keerthi Flow): 6.40 mm[Hg], 5.96 mm[Hg] Velocity Time Integr al: 32.40 cm, 33.54 cm Tricuspid Valve Peak Velocity (Regurgitant Flow): 2.39 m/s, 2.26 m/s, 2.42 m/s Pulmonic Valve Mean Gradient: 1.74 mm[Hg] Mean Velocity: 0.61 m/s Peak Velocity: 0.97 m/s, 0.95 m/s Peak Gradient: 3.74 mm[Hg], 3.58 mm[Hg] Right Atrium Right Atrium Systoli c Pressure: 62.78 ml, 62.78 ml Dictated by: Jose Maria Palacio M.D. on 06/06/2024 at 17:18 Approved by: Jose Maria Palacio M.D. on 06/06/2024 at 17:27 Dictated By: JOSE MARIA PALACIO Signed By: 06/06/248 DD/ 26 TD/TT: General Labor Forklift Operator: BNP Reviewed date:06/27/2024 08:28:09 PM Interpretation: Performing Lab: Notes/Report: [facility] , NT Pro B Type Natriuretic Pept 6868.0 <=1800.0 pg/mL RESULTS CALLED TO MARIA ANTONIA TRAN RN @BY Nitza Meredith at 1011 Performing Lab: see note ML - [facility] LB CBC AUTO DIFF Reviewed date:06/27/2024 08:28:09 PM Interpretation: Performing Lab: Notes/Report: [facility] , White Blood Count 11.9 4.0-11.0 10 3/uL Red Blood Count 4.42 4.20-5.40 10 6/uL Hemoglobin 13.8 12.0-16.0 g/dL Hematocrit 42.2 36.0-48.0 % Mean Corpuscular Volume 95.5 81.0-99.0 fL Mean Corpuscular Hemoglobin 31.2 26.7-34.0 pg Mean Corpuscular HGB Conc 32.7 29.9-35.2 g/dL Red Cell Distribution Width 14.0 11.0-15.0 % Platelet Count 215 150-450 10 3/uL Mean Platelet Volume 9.2 9.5-13.5 fL Neutrophils Percent Auto 75.9 43.0-75.0 % Lymphocytes Percent Auto 13.2 20.5-60.0 % Monocytes Percent Auto 9.1 1.7-12.0 % Eosinophils Percent Auto 1.0 0.9-7.0 % Basophils Percent Auto 0.3 0.2-2.0 % Immature Granulocytes Pct Auto 0.5 0.0-0.5 % Neutrophils Absolute Auto 9.1 1.4-6.5 10 3/uL Lymphocytes Absolute Auto 1.6 1.2-3.8 10 3/uL Monocytes Absolute Auto 1.1 0.3-0.8 10 3/uL Eosinophils Absolute Auto 0.1 0.0-0.7 10 3/uL Basophils Absolute Auto 0.0 0.0-0.1 10 3/uL Immature Granulocytes Abs Auto 0.06 0.00-0.03 10 3/uL Performing Lab: see note - [facility] LB PROF CHEM 8 (BAS METB) Reviewed date:06/27/2024 08:28:09 PM Interpretation: Performing Lab: Notes/Report: [facility] , Sodium 139 136-145 mmol/L Potassium 4.4 3.5-5.1 mmol/L Chloride 98 98-107 mmol/L Carbon Dioxide 29.3 21.0-32.0 mmol/L Anion Gap 16.1 Glucose 197 74-106 mg/dL Blood Urea Nitrogen 29.0 7.0-18.0 mg/dL Creatinine 1.61 0.55-1.02 mg/dL Estimated GFR ( Roma 37 >=60 mL/min/1.73m 2 Estimated GFR (Non- Mariza 31 >=60 mL/min/1.73m 2 BUN Creatinine Ratio 18.0 Calcium 10.7 8.5-10.1 mg/dL Performing Lab: see note - [facility] LB Prothrombin Time INR Reviewed date:06/27/2024 08:28:09 PM Interpretation: Performing Lab: Notes/Report: [facility] , Prothrombin Time 11.3 9.0-11.6 sec INR 1.07 DESIRED INR: 2.0-3.0 CONDITIONS NOT LISTED BELOW 2.5-3.5 FOR PROSTHETIC HEART VALVE REPLACEMENT 2.5-3.5 RECURRENT THROMBOSIS Performing Lab: see note ML - [facility] LB Type and Screen Reviewed date:06/27/2024 08:28:09 PM Interpretation: Performing Lab: Notes/Report: [facility] , Blood Type A Positive Antibody Screen NEGATIVE Occult Blood* Reviewed date:06/27/2024 08:28:09 PM Interpretation: Performing Lab: Notes/Report: [facility] , Occult Blood Positive Performing Lab: see note ML - [facility] LB ECG 12 lead Reviewed date:06/27/2024 08:28:09 PM Interpretation: Performing Lab: Notes/Report: Source Facility: [facility]-[address] [place] [address] Electrocardiograph Report Signed Patient: OSCAR HORTA MR#: [id number] : 1940 Acct:[id number] Age/Sex: 83 / F ADM Date: 06/26/24 Loc: [place] 214-[address]: Maetus Blake M.D. Ordering Physician: Ann-Marie Vides D.O. 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 Signed By: 06/27/24 0512 DD/DT: 10720 TD/TT: General Labor Forklift Operator: [place] [address] Electrocardiograph Report Signed Patient: DAISY HORTA MR#: [id number] : 1940 Acct:[id number] Age/Sex: 83 / F ADM Date: 06/26/24 Loc: [place] 214-[address]: Yvonne Blake M.D. Ordering Physician: Ann-Marie Vides D.O. 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 Signed By: 06/27/24511 DD/ 0 TD/TT: General Labor Forklift Operator: CBC no Diff (Hemogram) Reviewed date:06/27/2024 08:28:09 PM Interpretation: Performing Lab: Notes/Report: [facility] , White Blood Count 8.6 4.0-11.0 10 3/uL Red Blood Count 3.91 4.20-5.40 10 6/uL Hemoglobin 12.2 12.0-16.0 g/dL Hematocrit 37.1 36.0-48.0 % Mean Corpuscular Volume 94.9 81.0-99.0 fL Mean Corpuscular Hemoglobin 31.2 26.7-34.0 pg Mean Corpuscular HGB Conc 32.9 29.9-35.2 g/dL Red Cell Distribution Width 14.1 11.0-15.0 % Platelet Count 182 150-450 10 3/uL Mean Platelet Volume 9.2 9.5-13.5 fL Performing Lab: see note ML - [facility] LB CBC no Diff (Hemogram) Reviewed date:06/27/2024 08:28:09 PM Interpretation: Performing Lab: Notes/Report: [facility] , White Blood Count 8.8 4.0-11.0 10 3/uL Red Blood Count 3.85 4.20-5.40 10 6/uL Hemoglobin 11.9 12.0-16.0 g/dL Hematocrit 36.2 36.0-48.0 % Mean Corpuscular Volume 94.0 81.0-99.0 fL Mean Corpuscular Hemoglobin 30.9 26.7-34.0 pg Mean Corpuscular HGB Conc 32.9 29.9-35.2 g/dL Red Cell Distribution Width 14.0 11.0-15.0 % Platelet Count 190 150-450 10 3/uL Mean Platelet Volume 9.2 9.5-13.5 fL Performing Lab: see note - [facility] LB PROF CHEM 8 (BAS METB) Reviewed date:06/27/2024 08:28:09 PM Interpretation: Performing Lab: Notes/Report: [facility] , Sodium 138 136-145 mmol/L Potassium 3.5 3.5-5.1 mmol/L Chloride 99 98-107 mmol/L Carbon Dioxide 29.3 21.0-32.0 mmol/L Anion Gap 13.2 Glucose 134 74-106 mg/dL Blood Urea Nitrogen 26.0 7.0-18.0 mg/dL Creatinine 1.53 0.55-1.02 mg/dL Estimated GFR ( Roma 39 >=60 mL/min/1.73m 2 Estimated GFR (Non- Mariza 33 >=60 mL/min/1.73m 2 BUN Creatinine Ratio 17.0 Calcium 9.6 8.5-10.1 mg/dL Performing Lab: see note - [facility] LB XR chest 2V Reviewed date:07/11/2024 09:52:06 PM Interpretation: Performing Lab: Notes/Report: Source Facility: [facility]-[address], [employer] [address] XRay Report Signed Patient: OSCAR HORTA MR#: [id number] : 1940 Acct:[id number] Age/Sex: 83 / F ADM Date: 07/11/24 Loc: RAD Attending Dr: Brian Potter M.D. Ordering Physician: Brian Potter M.D. Date of Service: 07/11/24 Procedure(s): XR chest 2V Accession Number(s): [id number] cc: Brian Potter M.D.; Mateus Blake M.D. 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 Electronic cardiac device overlies the left chest with wires extending to the heart. This appears to be in good position in these projections. There is slight diffuse increase interstitial markings throughout all lung curiel which may represent some chronic lung changes or some interstitial fluid due to congestion. The pleural effusions present on previous exam have resolved. Presently there is no evidence of pleural effusion or pneumothorax. XR/XR chest 2V IMPRESSION: 1. Stable cardiomegaly 2. Resolution of previously noted pleural effusions 3. Increased interstitial markings consistent with chronic lung changes and/or interstitial fluid Electronically authenticated by: VERNELL WAITE Date: 07/11/2024 12:43 Dictated By: Vernell Waite M.D. Signed By: 07/11/24 1246 DD/ 1243 TD/TT: General Labor Forklift Operator: The [place] [id number] XRay Report Signed Patient: DAISY HORTA MR#: [id number] : 1940 Acct:[id number] Age/Sex: 83 / F ADM Date: 07/11/24 Loc: RAD Attending Dr: Brian ochoa M.D. Ordering Physician: Brian Potter M.D. Date of Service: 07/11/24 Procedure(s): XR chest 2V Accession Number(s): [id number] cc: Brian Potter M.D. ; Mateus Blake M.D. 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 Electronic cardiac device overlies the left chest with wires extending to the heart. This appears to be in good position in these projections. There is slight diff use increase interstitial markings throughout all lung curiel which may represent some chronic lung changes or some interstitial fluid due to congestion. The pleural effusion s present on previous exam have resolved. Presently there is no evidence of pl eural effusion or pneumothorax. X R/XR chest 2V IMPRESSION: 1. Stable cardiomegaly 2. Resolution of previously noted pleural effusions 3. Increased interst itial markings consistent with chronic lung changes and/or interstitial fluid Electronically authenticated by: VERNELL WAITE Date: 07/11/2024 12:43 Dictated By: Vernell Waite M.D. Signed By: 07/11/24 1246 DD/ 42 TD/TT: General Labor Forklift Operator: SHAHID AUTO DIFF Reviewed date:07/20/2024 03:44:42 PM Interpretation: Performing Lab: Notes/Report: [facility] , White Blood Count 8.7 4.0-11.0 10 3/uL Red Blood Count 3.55 4.20-5.40 10 6/uL Hemoglobin 11.2 12.0-16.0 g/dL Hematocrit 34.4 36.0-48.0 % Mean Corpuscular Volume 96.9 81.0-99.0 fL Mean Corpuscular Hemoglobin 31.5 26.7-34.0 pg Mean Corpuscular HGB Conc 32.6 29.9-35.2 g/dL Red Cell Distribution Width 13.9 11.0-15.0 % Platelet Count 231 150-450 10 3/uL Mean Platelet Volume 9.4 9.5-13.5 fL Neutrophils Percent Auto 63.1 43.0-75.0 % Lymphocytes Percent Auto 24.8 20.5-60.0 % Monocytes Percent Auto 9.4 1.7-12.0 % Eosinophils Percent Auto 1.5 0.9-7.0 % Basophils Percent Auto 0.5 0.2-2.0 % Immature Granulocytes Pct Auto 0.7 0.0-0.5 % Neutrophils Absolute Auto 5.5 1.4-6.5 10 3/uL Lymphocytes Absolute Auto 2.2 1.2-3.8 10 3/uL Monocytes Absolute Auto 0.8 0.3-0.8 10 3/uL Eosinophils Absolute Auto 0.1 0.0-0.7 10 3/uL Basophils Absolute Auto 0.0 0.0-0.1 10 3/uL Immature Granulocytes Abs Auto 0.06 0.00-0.03 10 3/uL Performing Lab: see note ML - [facility] LB PROF CHEM 8 (BAS METB) Reviewed date:07/20/2024 03:44:42 PM Interpretation: Performing Lab: Notes/Report: [facility] , Sodium 143 136-145 mmol/L Potassium 3.7 3.5-5.1 mmol/L Chloride 104 98-107 mmol/L Carbon Dioxide 29.3 21.0-32.0 mmol/L Anion Gap 13.4 Glucose 149 74-106 mg/dL Blood Urea Nitrogen 28.0 7.0-18.0 mg/dL Creatinine 1.68 0.55-1.02 mg/dL Estimated GFR ( Roma 35 >=60 mL/min/1.73m 2 Estimated GFR (Non- Mariza 29 >=60 mL/min/1.73m 2 BUN Creatinine Ratio 16.7 Calcium 9.3 8.5-10.1 mg/dL Performing Lab: see note ML - [facility] Blood Culture 1 Reviewed date:09/15/2024 05:13:49 PM Interpretation: Performing Lab: Notes/Report: [facility] , Blood Culture 1 See Below For Report Blood Culture 1 NG5D NO GROWTH AT 5 DAYS. Performing Lab: see note - [facility] Blood Culture 2 Reviewed date:09/15/2024 05:13:49 PM Interpretation: Performing Lab: Notes/Report: [facility] , Blood Culture 2 See Below For Report Blood Culture 2 NG5D NO GROWTH AT 5 DAYS. Performing Lab: see note - [facility] Prothrombin Time INR Reviewed date:09/05/2024 05:55:22 PM Interpretation: Performing Lab: Notes/Report: [facility] , Prothrombin Time 12.7 9.0-11.6 sec INR 1.22 DESIRED INR: 2.0-3.0 CONDITIONS NOT LISTED BELOW 2.5-3.5 FOR PROSTHETIC HEART VALVE REPLACEMENT 2.5-3.5 RECURRENT THROMBOSIS Performing Lab: see note - [facility] US venous doppler UE RT Reviewed date:09/05/2024 07:46:10 PM Interpretation: Performing Lab: Notes/Report: Source Facility: [place] [address] [place] [address] Ultrasound Report Signed Patient: OSCAR HORTA MR#: [id number] : 1940 Acct:[id number] Age/Sex: 83 / F ADM Date: 09/05/24 Loc: ER Attending Dr: Ordering Physician: Margie Tellez Date of Service: 09/05/24 Procedure(s): US venous doppler UE LT Accession Number(s): [id number] cc: Mateus Blake M.D.; Margie Tellez [place] [address] Patient Name: OSCAR HORTA MRN: [id number] date: 1940 Sex: F Assigned Patient Location: ER Current Patient Location: ER Accession/Order Number: [id number] Exam Date: 09/05/2024 17:50 Report Date: 09/05/2024 18:34 At the request of: MAGRIE TELLEZ Procedure: US venous doppler UE LT EXAM: US venous doppler UE LT HISTORY: swelling post op COMPARISON: None. TECHNIQUE: Multiple sonographic images of the deep veins of the left upper extremity were obtained, supplemented with Doppler. FINDINGS: The study is slightly limited secondary to an IV in place. The deep veins of the left upper extremity are relatively well visualized from the neck to the forearm otherwise. No filling defect is identified the deep veins to indicate a thrombus. There is normal compression and augmentation to flow in the accessible deep veins. US/US venous doppler UE LT IMPRESSION: There is no direct or indirect evidence of deep vein thrombosis in the left upper extremity at this time. Electronically authenticated by: MIGUELITO TELLEZ Date: 09/05/2024 18:34 Dictated By: Miguelito Tellez M.D. Signed By: 09/05/241835 DD/ 33 TD/TT: General Labor Forklift Operator: The [address] [address] Ultrasound Report Signed Patient: DAISY HORTA MR#: [id number] : 1940 Acct:[id number] Age/Sex: 83 / F ADM Date: 09/05/24 Loc: ER Attending Dr: Ordering Physician: Margie Tellez Date of Service: 09/05/24 Procedure(s): US jayshree ous doppler UE LT Accession Number(s): [id number] cc: Mateus Blake M.D. ; Margie Tellez [address] [id number] Patient Name: OSCAR HORTA MRN: [facility]:[id number] date: 1940 Sex: F Assigned Patient Location: ER Current Patient Loca tion: ER Accession/Order Numb er: [id number] Exam Date: 17:50 Report Date: 09/05/2024 18:34 At the request of: MARGIE TELLEZ Procedure: US venous doppler UE LT EXAM: US venous dopp ler UE LT HISTORY: swelling post op COMPARISON: None. TECHNIQUE: Multiple sonographic images of the deep veins of the left upper extremity were obtai elisa, supplemented with Doppler. FINDINGS: The study is slightly limited secondary to an IV in place. The deep veins of the left up per extremity are relatively well visualized from the neck to the forearm other singh. No filling defect is identified the deep veins to indicate a thrombus. There is normal compression and augmentation to flow in the accessible deep veins. U S/US venous doppler UE LT IMPRESSION: There is no direct o r indirect evidence of deep vein thrombosis in the left upper extremity at t his time. Electronically authenticated by: MIGUELITO TELLEZ Date: 09/05/2024 18:34 Dictated By: Maria Isabel Tellez M.D. Signed By: 09/05/241835 DD/ 33 TD/TT: General Labor Forklift Operator: CBC AUTO DIFF Reviewed date:09/06/2024 05:50:32 PM Interpretation: Performing Lab: Notes/Report: [facility] , White Blood Count 9.9 4.0-11.0 10 3/uL Red Blood Count 3.05 4.20-5.40 10 6/uL Hemoglobin 9.4 12.0-16.0 g/dL Hematocrit 28.8 36.0-48.0 % Mean Corpuscular Volume 94.4 81.0-99.0 fL Mean Corpuscular Hemoglobin 30.8 26.7-34.0 pg Mean Corpuscular HGB Conc 32.6 29.9-35.2 g/dL Red Cell Distribution Width 14.7 11.0-15.0 % Platelet Count 195 150-450 10 3/uL Mean Platelet Volume 9.5 9.5-13.5 fL Neutrophils Percent Auto 69.9 43.0-75.0 % Lymphocytes Percent Auto 18.1 20.5-60.0 % Monocytes Percent Auto 10.4 1.7-12.0 % Eosinophils Percent Auto 0.7 0.9-7.0 % Basophils Percent Auto 0.3 0.2-2.0 % Immature Granulocytes Pct Auto 0.6 0.0-0.5 % Neutrophils Absolute Auto 6.9 1.4-6.5 10 3/uL Lymphocytes Absolute Auto 1.8 1.2-3.8 10 3/uL Monocytes Absolute Auto 1.0 0.3-0.8 10 3/uL Eosinophils Absolute Auto 0.1 0.0-0.7 10 3/uL Basophils Absolute Auto 0.0 0.0-0.1 10 3/uL Immature Granulocytes Abs Auto 0.06 0.00-0.03 10 3/uL Performing Lab: see note ML - [facility] LB CBC AUTO DIFF Reviewed date:09/05/2024 05:55:22 PM Interpretation: Performing Lab: Notes/Report: [facility] , White Blood Count 14.2 4.0-11.0 10 3/uL Red Blood Count 3.09 4.20-5.40 10 6/uL Hemoglobin 9.5 12.0-16.0 g/dL Hematocrit 29.3 36.0-48.0 % Mean Corpuscular Volume 94.8 81.0-99.0 fL Mean Corpuscular Hemoglobin 30.7 26.7-34.0 pg Mean Corpuscular HGB Conc 32.4 29.9-35.2 g/dL Red Cell Distribution Width 14.5 11.0-15.0 % Platelet Count 207 150-450 10 3/uL Mean Platelet Volume 9.4 9.5-13.5 fL Neutrophils Percent Auto 82.4 43.0-75.0 % Lymphocytes Percent Auto 7.9 20.5-60.0 % Monocytes Percent Auto 8.8 1.7-12.0 % Eosinophils Percent Auto 0.1 0.9-7.0 % Basophils Percent Auto 0.2 0.2-2.0 % Immature Granulocytes Pct Auto 0.6 0.0-0.5 % Neutrophils Absolute Auto 11.7 1.4-6.5 10 3/uL Lymphocytes Absolute Auto 1.1 1.2-3.8 10 3/uL Monocytes Absolute Auto 1.2 0.3-0.8 10 3/uL Eosinophils Absolute Auto 0.0 0.0-0.7 10 3/uL Basophils Absolute Auto 0.0 0.0-0.1 10 3/uL Immature Granulocytes Abs Auto 0.08 0.00-0.03 10 3/uL Performing Lab: see note ML - [facility] CBC no Diff (Hemogram) Reviewed date:06/27/2024 08:28:09 PM Interpretation: Performing Lab: Notes/Report: [facility] , White Blood Count 10.0 4.0-11.0 10 3/uL Red Blood Count 4.15 4.20-5.40 10 6/uL Hemoglobin 12.9 12.0-16.0 g/dL Hematocrit 39.6 36.0-48.0 % Mean Corpuscular Volume 95.4 81.0-99.0 fL Mean Corpuscular Hemoglobin 31.1 26.7-34.0 pg Mean Corpuscular HGB Conc 32.6 29.9-35.2 g/dL Red Cell Distribution Width 14.2 11.0-15.0 % Platelet Count 211 150-450 10 3/uL Mean Platelet Volume 9.3 9.5-13.5 fL Performing Lab: see note - [facility] Troponin I High Sensitivity Reviewed date:06/27/2024 08:28:09 PM Interpretation: Performing Lab: Notes/Report: [facility] , Troponin I High Sensitivity 17.7 4.0-51.3 pg/mL CUT-OFF POINTS HAVE BEEN ESTABLISHED BASED ON THE FOURTH UNIVERSAL DEFINITION OF MYOCARDIAL INFARCTION. THE UPPER REFERENCE LIMIT (URL) OF TROPONIN, DEFINED THE 99TH PERCENTILE OF cTnI DISTRIBUTION IN A REFERENCE POPULATION, HAS BEEN CONFIRMED THE DECISION THRESHOLD FOR ND DIAGNOSIS. 99TH PERCENTILE = 51.4 PG/ML NOTE: HIGH-SENSITIVITY TROPONIN ASSAY IS NOT INTENDED TO BE USED IN ISOLATION BUT SHOULD BE INTERPRETED IN CONJUNCTION WITH OTHER DIAGNOSTIC AND CLINICAL INFORMATION. Performing Lab: see note - [facility] US venous doppler LE BI Reviewed date:09/06/2024 05:50:32 PM Interpretation: Performing Lab: Notes/Report: Source Facility: [facility]-[address] [place] [address] [place] [address] Ultrasound Report Signed Patient: OSCAR HORTA MR#: [id number] : 1940 Acct:[id number] Age/Sex: 83 / F ADM Date: 09/05/24 Loc: MS 214-[address]: Mateus Blake M.D. Ordering Physician: Mateus Blake M.D. Date of Service: 09/06/24 Procedure(s): US venous doppler LE BI Accession Number(s): [id number] cc: Mateus Blake M.D. [place] [id number] Patient Name: OSCAR HORTA MRN: [facility]:[id number] date: 1940 Sex: F Assigned Patient Location: MS Current Patient Location: MS Accession/Order Number: [id number] Exam Date: 09/06/2024 09:20 Report Date: 09/06/2024 10:00 At the request of: MATEUS BALKE Procedure: US venous doppler LE BI EXAMINATION: US venous doppler LE BI HISTORY: + Homans COMPARISON: No relevant comparison available. FINDINGS: REGION: bilateral lower extremities. THROMBI: None. COMPRESSIBILITY: Normal compressibility. FLOW: Normal waveform and antegrade flow between 5 and 20 cm/s. OTHER: None. US/US venous doppler LE BI IMPRESSION: 1. No deep vein thrombus within the right or left lower extremity. Electronically authenticated by: JOSEPH FAIRBANKS Date: 09/06/2024 10:00 Dictated By: Joseph Fairbanks M.D. Signed By: 09/06/24 1003 DD/ 1000 TD/TT: General Labor Forklift Operator: [place] [address] Ultrasound Report Signed Patient: DAISY HORTA MR#: [id number] : 1940 Acct:[id number] Age/Sex: 83 / F ADM Date: 09/05/24 Loc: MS 214-[address]: Yvonne Blake M.D. Ordering Physician: Mateus Blake M.D. Date of Service: 09/06/24 Procedure(s): US jayshree ous doppler LE BI Accession Number(s): [id number] cc: Mateus Blake M.D. [address] [address] Patient Name: OSCAR HORTA MRN: [id number] date: 1940 Sex: F Assigned Patient Location: MS Current Patient Loca tion: MS Accession/Order Numb er: [id number] Exam Date: 09:20 Report Date: 09/06/2024 10:00 At the request of: MATEUS BLAKE Procedure: US venous doppler LE BI EXAMINATION: US veno us doppler LE BI HISTORY: + Homans COMPARISON: No relev ant comparison available. FINDINGS: REGION: bilateral lo wer extremities. THROMBI: None. COMPRESSIBILITY: Nor mal compressibility. FLOW: Normal wavefor m and antegrade flow between 5 and 20 cm/s. OTHER: None. U S/US venous doppler LE BI IMPRESSION: 1. No deep vein thro mbus within the right or left lower extremity. Electronically authenticated by: JOSEPH FAIRBANKS Date: 09/06/2024 10:00 Dictated By: Joseph Fairbanks M.D. Signed By: 09/06/24 1003 DD/ 1000 TD/TT: General Labor Forklift Operator: CBC no Diff (Hemogram) Reviewed date:06/27/2024 08:28:09 PM Interpretation: Performing Lab: Notes/Report: [facility] , White Blood Count 11.1 4.0-11.0 10 3/uL Red Blood Count 4.43 4.20-5.40 10 6/uL Hemoglobin 13.7 12.0-16.0 g/dL Hematocrit 42.6 36.0-48.0 % Mean Corpuscular Volume 96.2 81.0-99.0 fL Mean Corpuscular Hemoglobin 30.9 26.7-34.0 pg Mean Corpuscular HGB Conc 32.2 29.9-35.2 g/dL Red Cell Distribution Width 14.0 11.0-15.0 % Platelet Count 208 150-450 10 3/uL Mean Platelet Volume 9.3 9.5-13.5 fL Performing Lab: see note - [facility] FREE T3 Reviewed date:09/23/2024 10:46:47 AM Interpretation: Performing Lab: Notes/Report: [facility] , Free T3 2.32 2.18-3.98 pg/mL Performing Lab: see note ML - [facility] LB GLYCOHEMOGLOBIN A1C Reviewed date:09/23/2024 10:46:47 AM Interpretation: Performing Lab: Notes/Report: [facility] , Glycohemoglobin A1C 6.4 4.5-6.2 % ADA RECOMMENDED LIMIT 4.0 - 6.0 ADA THERAPEUTIC TARGET < 7.0 ACTION SUGGESTED > 7.0 Estimated Average Glucose 137 Performing Lab: see note ML - [facility] LB LACTATE or LACTIC ACID Reviewed date:06/27/2024 08:28:09 PM Interpretation: Performing Lab: Notes/Report: [facility] , Lactate/Lactic Acid 1.9 0.4-2.0 mmol/L Performing Lab: see note ML - [facility] LB LIPID PROFILE Reviewed date:09/23/2024 10:46:47 AM Interpretation: Performing Lab: Notes/Report: [facility] , Triglycerides 152 <=150 mg/dL Cholesterol 148 <=200 mg/dL HDL Cholesterol 59 40-60 mg/dL > or =60 mg/dl - LOW CARDIOVASCULAR RISK <40 mg/dl - HIGH CARDIOVASCULAR RISK LDL Cholesterol Calculated 59.0 <100 mg/dl OPTIMAL 100-129 mg/dl NEAR OR ABOVE OPTIMAL 130-159 mg/dl BORDERLINE HIGH 160-189 mg/dl HIGH >190 mg/dl VERY HIGH VLDL CHOLESTEROL 30.4 Chol HDL Ratio 2.5 3.3 - 4.4 LOW RISK 4.4 - 7.1 AVERAGE RISK 7.1 - 11.0 MODERATE RISK >11.0 HIGH RISK Performing Lab: see note ML - [facility] LB PROF 14(COMP METB) Reviewed date:09/23/2024 10:46:47 AM Interpretation: Performing Lab: Notes/Report: [facility] , Sodium 141 136-145 mmol/L Potassium 3.4 3.5-5.1 mmol/L Chloride 103 98-107 mmol/L Carbon Dioxide 31.6 21.0-32.0 mmol/L Anion Gap 9.8 Glucose 140 74-106 mg/dL Blood Urea Nitrogen 23.0 7.0-18.0 mg/dL Creatinine 1.25 0.55-1.02 mg/dL Estimated GFR ( Roma 50 >=60 mL/min/1.73m 2 Estimated GFR (Non- Mariza 41 >=60 mL/min/1.73m 2 BUN Creatinine Ratio 18.4 Calcium 9.6 8.5-10.1 mg/dL Bilirubin Total 0.5 0.2-1.0 mg/dL Aspartate Amino Transferase 13 15-37 U/L Alanine Aminotransferase 15 14-59 U/L Alkaline Phosphatase 82 46-116 U/L Total Protein 6.8 6.4-8.2 g/dL Albumin Level 3.0 3.4-5.0 g/dL Globulin 3.8 Albumin Globulin Ratio 0.8 Performing Lab: see note ML - [facility] LB T4 Reviewed date:09/23/2024 10:46:47 AM Interpretation: Performing Lab: Notes/Report: [facility] , T4 Thyroxine 9.50 4.80-13.90 ug/dL Performing Lab: see note ML - [facility] LB TSH Reviewed date:09/23/2024 10:46:47 AM Interpretation: Performing Lab: Notes/Report: [facility] , Thyroid Stimulating Hormone 0.119 0.358-3.740 uIU/mL Performing Lab: see note ML - [facility] VITAMIN D 25 [place] Reviewed date:09/23/2024 01:16:30 PM Interpretation: Performing Lab: Notes/Report: [facility] , Vitamin D 81.3 <20 ng/mL Vit D deficient 20-<30 ng/mL Vit D insufficient 30-100 ng/mL Vit D sufficient >100 ng/mL Potential Toxicity Performing Lab: see note ML - [facility] LB CT lumbar spine wo con Reviewed date:03/10/2025 09:07:23 PM Interpretation: Performing Lab: Notes/Report: Source Facility: [facility]-[address] [place] [address] [place] [address] CT Scan Report Signed Patient: OSCAR HORTA MR#: [id number] : 1940 Acct:[id number] Age/Sex: 84 / F ADM Date: 03/10/25 Loc: RAD Attending Dr: Kassandra Thomas NP Ordering Physician: Kassandra Thomas NP Date of Service: 03/10/25 Procedure(s): CT lumbar spine wo con Accession Number(s): [id number] cc: Mateus Blake M.D. [facility] [place] [id number] Patient Name: OSCAR HORTA MRN: [id number] date: 1940 Sex: F Assigned Patient Location: [facility] Current Patient Location: [facility] Accession/Order Number: [id number] Exam Date: 03/10/2025 13:07 Report Date: 03/10/2025 13:13 At the request of: KASSANDRA THOMAS NP Procedure: CT lumbar spine wo con CT lumbar spine wo con 03/10/2025 12:55 PM History:Acute low back pain for 3 weeks. Pain radiates to both legs. TECHNIQUE: Multi detector CT axial slices of the lumbar spine were obtained without IV contrast. Volumetric acquisition sagittal, coronal, and 3-D reconstructions were performed and reviewed on a separate workstation. CT was performed with one or more of the following dose reduction techniques: Automated exposure control, adjustment of the mA and/or kV according to patient size, or use of iterative reconstruction technique. COMPARISON: None FINDINGS: No fracture. Vertebral body heights appear maintained. Moderate diffuse degenerative disease with endplate and facet joint degenerative changes as well as approximately 5 mm of anterolisthesis of L3 on L4 and approximately 5 mm of anterolisthesis of L4 on L5. Transverse processes appear intact. No paraspinal mass. SI joints demonstrate degenerative change. Visualized retroperitoneum demonstrates no acute process. CT/CT lumbar spine wo con IMPRESSION: Diffuse moderate degenerative disc disease. No acute bony process is noted. Impression dictated by: Maksim Machado Jr.OMedardo 03/10/2025 1:13 PM Dictation Location: [place] [address] Electronically authenticated by: [id number] Y Date: 03/10/2025 13:13 Dictated By: Butch Quinones M.D. Signed By: 03/10/25 131 DD/ 12 TD/TT: General Labor Forklift Operator: [place] [address] CT Scan Report Signed Patient: DAISY HORTA MR#: [id number] : 1940 Acct:[id number] Age/Sex: 84 / F ADM Date: 03/10/25 Loc: RAD Attending Dr: Kassandra milan [employer] Ordering Physician: Kassandra Thomas NP Date of Service: 03/10/25 Procedure(s): CT lum bar spine wo con Accession Number(s): [id number] cc: Mateus Blake M.D. [place] [id number] Patient Name: OSCAR HORTA MRN: [id number] date: 1940 Sex: F Assigned Patient Location: RAD Current Patient Loca tion: RAD Accession/Order Numb er: [id number] Exam Date: 03/10/2025 13:07 Report Date: 03/10/2025 13:13 At the request of: KASSANDRA THOMAS NP Procedure: CT lumbar spine wo con CT lumbar spine wo c on 03/10/2025 12:55 PM History:Acute low ba ck pain for 3 weeks. Pain radiates to both legs. TECHNIQUE: Multi det abraham CT axial slices of the lumbar spine were obtained without IV contrast. Volumetric acquisition sagittal, coronal, and 3-D reconstructions were performed and reviewed on a separate workstation. CT was performed with one o r more of the following dose reduction techniques: Automated exposure control, adjustment of the mA and/or kV according to patient size, or use of iterative reconstruction technique. COMPARISON: None FINDINGS: No fracture. Vertebr al body heights appear maintained. Moderate diffuse degenerative disease with endplate and facet joint degenerative changes as well as approximatel y 5 mm of anterolisthesis of L3 on L4 and approximately 5 mm of anterolisthesi s of L4 on L5. Transverse processes appear intact. No paraspinal mass. SI joints demonstrate degenerative change. Visualized retroperitoneum demonstrates no acute process. C T/CT lumbar spine wo con IMPRESSION: Diffuse moderate degenerative disc disease. No acute bony process is noted. Impression dictated by: Butch Quinones Jr., D.O. 03/10/2025 1:13 PM Dictation Location: [place] [address] Electronically authenticated by: [id number] Y Date: 03/10/2025 13:13 Dictated By: Butch Quinones M.D. Signed By: 03/10/25 1315 DD/ 1313 TD/TT: General Labor Forklift Operator: XR lumbar spine 6V w bending Reviewed date:03/10/2025 09:07:23 PM Interpretation: Performing Lab: Notes/Report: Source Facility: [place] [address] [place] [address] XRay Report Signed Patient: OSCAR HORTA MR#: [id number] : 1940 Acct:[id number] Age/Sex: 84 / F ADM Date: 03/10/25 Loc: RAD Attending Dr: Kassandra Thomas NP Ordering Physician: Kassandra Thomas NP Date of Service: 03/10/25 Procedure(s): XR lumbar spine 6V w bending Accession Number(s): [id number] cc: Kassandra Thomas NP; Mateus Blake M.D. [place] [address] Patient Name: OSCAR HORTA MRN: [id number] date: 1940 Sex: F Assigned Patient Location: [facility] Current Patient Location: [facility] Accession/Order Number: [id number] Exam Date: 03/10/2025 13:42 Report Date: 03/10/2025 13:46 At the request of: KASSANDRA THOMAS NP Procedure: XR lumbar spine 6V w bending LUMBAR SPINE - 6 views CLINICAL HISTORY: Spinal stenosis, lumbar region with neurogenic claudication COMPARISON: Acute low back pain for 3 weeks. Radiating down both legs. FINDINGS: Vertebral body heights appear maintained. Diffuse moderate degenerative disease with endplate and facet joint degenerative changes. There is 5 mm of anterolisthesis of L3 on L4 and L4 on L5. No pathological motion on flexion or extension views. XR/XR lumbar spine 6V w bending IMPRESSION: DIFFUSE MODERATE DEGENERATIVE DISC DISEASE. Impression dictated by: Butch Quinones Jr., D.O. 03/10/2025 1:46 PM Dictation Location: [place] [address] Electronically authenticated by: [id number] Y Date: 03/10/2025 13:46 Dictated By: Butch Quinones M.D. Signed By: 03/10/25 1349 DD/ 45 TD/TT: General Labor Forklift Operator: The [address] [address] XRay Report Signed Patient: DAISY HORTA MR#: [id number] : 1940 Acct:[id number] Age/Sex: 84 / F ADM Date: 03/10/25 Loc: RAD Attending Dr: Kassandra milan [employer] Ordering Physician: Kassandra Thomas NP Date of Service: 03/10/25 Procedure(s): XR lum bar spine 6V w bending Accession Number(s): [id number] cc: Kassandra Thomas NP; Mateus Blake M.D. [facility] [place] [address] Patient Name: OSCAR HORTA MRN: [id number] date: 1940 Sex: F Assigned Patient Location: [facility] Current Patient Loca tion: RAD Accession/Order Numb er: [id number] Exam Date: 03/10/2025 13:42 Report Date: 03/10/2025 13:46 At the request of: KASSANDRA THOMAS NP Procedure: XR lumbar spine 6V w bending LUMBAR SPINE - 6 views CLINICAL HISTORY: Sp inal stenosis, lumbar region with neurogenic claudication COMPARISON: Acute lo w back pain for 3 weeks. Radiating down both legs. FINDINGS: Vertebral body heights appear maintained. Diffuse moderate degenerative disease with endplate and facet joint degenerative changes. There is 5 mm of anterolisthesis of L3 on L4 and L4 on L5. No pathological motion on flexion or extension views. X R/XR lumbar spine 6V w bending IMPRESSION: DIFFUSE MODERATE DEGENERATIVE DISC DISEASE. Impression dictated by: Butch Quinones Jr., D.O. 03/10/2025 1:46 PM Dictation Location: [place] [address] Electronically authenticated by: [id number] Y Date: 03/10/2025 13:46 Dictated By: Butch Quinones M.D. Signed By: 03/10/25 1349 DD/ 45 TD/TT: General Labor Forklift Operator: RAYSHAWN screening mammo BI Reviewed date:06/12/2024 09:23:52 PM Interpretation: Performing Lab: Notes/Report: Source Facility: [facility]-[address] [place] [address] [place] [address] Mammography Report Signed Patient: OSCAR HORTA MR#: [id number] : 1940 Acct:[id number] Age/Sex: 83 / F ADM Date: 06/12/24 Loc: MAMMO Attending Dr: Mateus Blake M.D. Ordering Physician: Mateus Blake M.D. Results: Date of Service: 06/12/24 Follow Up: Procedure(s): MM screening mammo BI Accession Number(s): [id number] cc: Mateus Blake M.D. Patient Name: OSCAR HORTA MR#: [id number] : 1940 Exam Date: 06/12/2024 Ordering Doctor: DR Mateus Blake . RADIOLOGY REPORT PROCEDURE: MM SCREENING MAMMO BI COMPARISON: MG MAMM SCREEN 3D DAVID CAD, 07/19/2022. MG MAMM RT DIAG FU, 08/08/2022. MAMMO POST BIOPSY RIGHT, 08/19/2022. INDICATIONS: Screening Calculator Name NCI Breast Cancer Risk Assessment Tool 5 Year Breast Cancer Risk 10.50% Lifetime Breast Cancer Risk 14.70% Personal Breast Cancer No Personal Ovarian Cancer No Treatments None Family Cancers Sister with breast cancer at age 77; Daughter with breast cancer at age 35; Daughter with uterine cancer at age 37. LOCATION: [facility] BREAST COMPOSITION: There are scattered areas of fibroglandular density. FINDINGS: DIAGNOSTIC CATEGORY 2--BENIGN FINDING: Scattered benign-appearing calcifications are present. RIGHT BREAST: Multiple surgical clips upper outer quadrant and axillary tail from interval surgery. Some mild focal asymmetry in the region of the clips with no focal mass or architectural distortion this likely represents post procedural changes. LEFT BREAST: No significant suspicious finding. RECOMMENDATIONS: ROUTINE MAMMOGRAM AND CLINICAL EVALUATION IN 12 MONTHS. PLEASE NOTE: A NORMAL MAMMOGRAM DOES NOT EXCLUDE THE POSSIBILITY OF BREAST CANCER. A CLINICALLY SUSPICIOUS PALPABLE LUMP SHOULD BE BIOPSIED. Dictated by: Pancho Bauman MD on 06/12/2024 at 15:20 Approved by: Pancho Bauman MD on 06/12/2024 at 15:34 Dictated By: Pancho Bauman M.D. Signed By: 06/12/24 1535 DD/ 1534 TD/TT: General Labor Forklift Operator: [place] [address] Mammography Report Signed Patient: DAISY HORTA MR#: [id number] : 1940 Acct:[id number] Age/Sex: 83 / F ADM Date: 06/12/24 Loc: MAMMO Attending Dr: Yvonne Blake M.D. Ordering Physician: Mateus Blake M.D. Results: Date of Service: 11/04 Follow Up: Procedure(s): MM screening mammo BI Accession Number(s): [id number] cc: Mateus Blake M.D. Patient Name: OSCAR HORTA MR#: [id number] : 1940 Exam Date: 06/12/2024 Ordering Doctor: DR Mateus Blake . RADIOLOGY REPORT PROCEDURE: MM SCREEN ING MAMMO BI COMPARISON: MG MAMM SCREEN 3D DAVID CAD, 07/19/2022. MG MAMM RT DIAG FU, 08/08/2022. MAMMO PO ST BIOPSY RIGHT, 08/19/2022. INDICATIONS: Screening Calculator Name NCI Breast Cancer Risk Assessment Tool 5 Year Breast Cancer Risk 10.50% Lifetime Breast Canc er Risk 14.70% Personal Breast Cancer No Personal Ovarian Can cer No Treatments None Family Cancers Siste r with breast cancer at age 77; Daughter with breast cancer at age 35; Daughter with uterine cancer at age 37. LOCATION: [facility] BREAST COMPOSITION: There are scattered areas of fibroglandular density. FINDINGS: DIAGNOSTIC CATEGORY 2--BENIGN FINDING: Scattered benign-appearing calcifications are present. RIGHT BREAST: Multip le surgical clips upper outer quadrant and axillary tail from interval surger y. Some mild focal asymmetry in the region of the clips with no focal mass o r architectural distortion this likely represents post procedural changes. LEFT BREAST: No significant suspicious finding. RECOMMENDATIONS: ROUTINE MAMMOGRAM AN D CLINICAL EVALUATION IN 12 MONTHS. PLEASE NOTE: A DMITRI L MAMMOGRAM DOES NOT EXCLUDE THE POSSIBILITY OF BREAST CANCER. A CLINICALLY SUSPICIOUS PALPABLE LUMP SHOULD BE BIOPSIED. Dictated by: Pancho renee MD on 06/12/2024 at 15:20 Approved by: Pancho renee MD on 06/12/2024 at 15:34 Dictated By: Dalton Bauman M.D. Signed By: 06/12/241534 DD/ 33 TD/TT: General Labor Forklift Operator: PROF MEÑO Medina ([facility]) Reviewed date:05/09/2024 12:12:32 PM Interpretation: Performing Lab: Notes/Report: [facility] , Sodium 135 136-145 mmol/L Potassium 5.1 3.5-5.1 mmol/L Chloride 99 98-107 mmol/L Carbon Dioxide 26.9 21.0-32.0 mmol/L Anion Gap 14.2 Glucose 142 74-106 mg/dL Blood Urea Nitrogen 79.0 7.0-18.0 mg/dL RESULTS CALLED TO Tee Boyle lpn @BY Nitza Meredith at 0817 Creatinine 1.75 0.55-1.02 mg/dL Estimated GFR ( Roma 34 >=60 Estimated GFR (Non- Mariza 28 >=60 BUN Creatinine Ratio 45.1 Calcium 10.2 8.5-10.1 mg/dL Performing Lab: see note ML - [facility] LB PROF WILDER 8 (LEAH METB) Reviewed date:05/01/2024 12:39:44 PM Interpretation: Performing Lab: Notes/Report: [facility] , Sodium 133 136-145 mmol/L Potassium 4.2 3.5-5.1 mmol/L Chloride 95 98-107 mmol/L Carbon Dioxide 27.0 21.0-32.0 mmol/L Anion Gap 15.2 Glucose 179 74-106 mg/dL Blood Urea Nitrogen 75.0 7.0-18.0 mg/dL Creatinine 1.83 0.55-1.02 mg/dL Estimated GFR ( Roma 32 >=60 Estimated GFR (Non- Mariza 26 >=60 BUN Creatinine Ratio 41.0 Calcium 10.4 8.5-10.1 mg/dL Performing Lab: see note ML - [facility] US BLADDER Reviewed date:05/16/2024 06:14:56 PM Interpretation: Performing Lab: Notes/Report: Source Facility: [facility]-[address] [place] [address] [place] [address] Ultrasound Report Signed Patient: OSCAR HORTA MR#: [id number] : 1940 Acct:[id number] Age/Sex: 83 / F ADM Date: 05/16/24 Loc: US Attending Dr: Mateus Blake M.D. Ordering Physician: Mateus Blake M.D. Date of Service: 05/16/24 Procedure(s): US bladder Accession Number(s): [id number] cc: Mateus Blake M.D. [place] [id number] Patient Name: OSCAR HORTA MRN: [id number] date: 1940 Sex: F Assigned Patient Location: US Current Patient Location: US Accession/Order Number: [id number] Exam Date: 05/16/2024 17:18 Report Date: 05/16/2024 18:07 At the request of: MATEUS BLAKE Procedure: US bladder EXAM: US bladder HISTORY: URINARY RETENTION R33.9 COMPARISON: None. TECHNIQUE: Multiple sonographic images of the urinary bladder were obtained. The study was supplemented with Doppler. FINDINGS: The urinary bladder is initially mildly distended with a prevoid volume of 57 mL. The bladder torrez are smooth. There is no thickening of the bladder wall. Bilateral ureteral jets are visualized. The patient voided spontaneously with a post void volume of 9 mL, which is normal. US/US bladder IMPRESSION: Although the urinary bladder is not very well distended, it appears unremarkable. No abnormality seen in the bladder wall. The post void volume is 9 mL, which is normal. Electronically authenticated by: MIGUELITO TELLEZ Date: 05/16/2024 18:07 Dictated By: Miguelito Tellez M.D. Signed By: 05/16/241809 DD/ 06 TD/TT: General Labor Forklift Operator: [place] [address] Ultrasound Report Signed Patient: DAISY HORTA MR#: [id number] : 1940 Acct:[id number] Age/Sex: 83 / F ADM Date: 05/16/24 Loc: US Attending Dr: Yvonne Blake M.D. Ordering Physician: Mateus Blake M.D. Date of Service: 05/16/24 Procedure(s): US bladder Accession Number(s): [id number] cc: Mateus Blake M.D. The [address] [address] Patient Name: OSCAR HORTA MRN: [id number] date: 1940 Sex: F Assigned Patient Location: US Current Patient Loca tion: US Accession/Order Numb er: [id number] Exam Date: 05/16/2024 17:18 Report Date: 05/16/2024 18:07 At the request of: MATEUS BLAKE Procedure: US bladder EXAM: US bladder HISTORY: URINARY RETENTION R33.9 COMPARISON: None. TECHNIQUE: Multiple sonographic images of the urinary bladder were obtained. The study was supplemented with Doppler. FINDINGS: The urinar y bladder is initially mildly distended with a prevoid volume of 57 mL. The bladder torrez are smooth. There is no thickening of the bladder wall. Bilate ral ureteral jets are visualized. The patient voided spontaneously with a post void volume of 9 mL, which is normal. S/US bladder IMPRESSION: Although the urinary bladder is not very well distended, it appears unremarkable. No abnormality seen in the bladder wall. The post void volume is 9 mL, which is normal. Electronically authenticated by: MIGUELITO TELLEZ Date: 05/16/2024 18:07 Dictated By: Maria Isabel Tellez M.D. Signed By: 05/16/241809 DD/ 06 TD/TT: General Labor Forklift Operator: BNP Reviewed date:09/23/2024 10:46:47 AM Interpretation: Performing Lab: Notes/Report: [facility] , NT Pro B Type Natriuretic Pept 5152.0 <=1800.0 pg/mL RESULTS CALLED TO TEE BOYLE LPN at 1037 Performing Lab: see note ML - [facility] LB MAGNESIUM Reviewed date:09/06/2024 05:50:32 PM Interpretation: Performing Lab: Notes/Report: [facility] , Magnesium 1.0 1.8-2.4 mg/dL Performing Lab: see note ML - [facility] LB LACTATE or LACTIC ACID Reviewed date:09/06/2024 05:50:32 PM Interpretation: Performing Lab: Notes/Report: [facility] , Lactate/Lactic Acid 1.3 0.4-2.0 mmol/L Performing Lab: see note ML - [facility] LB XR chest 1V Reviewed date:09/05/2024 05:59:46 PM Interpretation: Performing Lab: Notes/Report: Source Facility: [place] [address] XRay Report Signed Patient: OSCAR HORTA MR#: [id number] : 1940 Acct:[id number] Age/Sex: 83 / F ADM Date: 09/05/24 Loc: ER Attending Dr: Ordering Physician: Margie Tellez Date of Service: 09/05/24 Procedure(s): XR chest 1V Accession Number(s): [id number] cc: Mateus Blake M.D.; Margie Tellez [place] [address] Patient Name: OSCAR HORTA MRN: [id number] date: 1940 Sex: F Assigned Patient Location: ER Current Patient Location: ED.MAIN Accession/Order Number: [id number] Exam Date: 09/05/2024 17:05 Report Date: 09/05/2024 17:52 At the request of: MARGIE TELLEZ Procedure: XR chest 1V Exam: Radiographs: XR hand LT min 3V, XR chest 1V Reason for exam: pain Comparison: Chest x-ray dated 07/11/2024 XR/XR chest 1V IMPRESSION: Degenerative changes throughout the left hand, most advanced at the DIP joints. Slight subluxation of the fourth DIP joint, this may be chronic. Lucency in the proximal aspect of the fourth middle phalanx is favored to represent a degenerative subchondral cyst although no chondral is also a consideration. Remainder of the left hand radiographs is unremarkable. Pulmonary hypertension. ICD. Right chest wall surgical clips. Remainder the chest is unremarkable. Electronically authenticated by: ALONDRA PRATT Date: 09/05/2024 17:52 Dictated By: Alondra Pratt M.D. Signed By: 09/05/241753 DD/ 51 TD/TT: General Labor Forklift Operator: [address] [address] XRay Report Signed Patient: DAISY HORTA MR#: [id number] : 1940 Acct:[id number] Age/Sex: 83 / F ADM Date: 09/05/24 Loc: ER Attending Dr: Ordering Physician: Margie Tellez Date of Service: 09/05/24 Procedure(s): XR chest 1V Accession Number(s): [id number] cc: Mateus Blake M.D. ; Margie Tellez [address] [address] Patient Name: OSCAR HORTA MRN: [id number] date: 1940 Sex: F Assigned Patient Location: ER Current Patient Loca tion: ED.MAIN Accession/Order Numb er: [id number] Exam Date: 17:05 Report Date: 09/05/2024 17:52 At the request of: MARGIE TELLEZ Procedure: XR chest 1V Exam: Radiographs: X R hand LT min 3V, XR chest 1V Reason for exam: pain Comparison: Chest x- ray dated 07/11/2024 X R/XR chest 1V IMPRESSION: Degenerative changes throughout the left hand, most advanced at the DIP joints. Slight subluxation o f the fourth DIP joint, this may be chronic. Lucency in the proximal aspect of t he fourth middle phalanx is favored to represent a degenerative subchon dral cyst although no chondral is also a consideration. Remainder of the lef t hand radiographs is unremarkable. Pulmonary hypertensi on. ICD. Right chest wall surgical clips. Remainder the chest is unremarkable. Electronically authenticated by: ALONDRA PRATT Date: 09/05/2024 17:52 Dictated By: Swapnil Pratt M.D. Signed By: 09/05/241753 DD/ 1752 TD/TT: General Labor Forklift Operator: ECG 12 lead Reviewed date:09/08/2024 03:06:54 PM Interpretation: Performing Lab: Notes/Report: Source Facility: [place] [address] [place] [address] Electrocardiograph Report Signed Patient: OSCAR HORTA MR#: [id number] : 1940 Acct:[id number] Age/Sex: 83 / F ADM Date: 09/05/24 Loc: [place] 214-[address]: Mateus Blake M.D. 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 Signed By: 09/08/24 0738 DD/ 1645 TD/TT: General Labor Forklift Operator: [place] [address] Electrocardiograph Report Signed Patient: DAISY HORTA MR#: [id number] : 1940 Acct:[id number] Age/Sex: 83 / F ADM Date: 09/05/24 Loc: [place] 214-[address]: Yvonne Blake M.D. 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 Signed By: 09/08/24 0738 DD/ 1645 TD/TT: General Labor Forklift Operator: XR HAND LT MIN 3V Reviewed date:09/05/2024 05:59:46 PM Interpretation: Performing Lab: Notes/Report: Source Facility: [place] [address] XRay Report Signed Patient: OSCAR HORTA MR#: [id number] : 1940 Acct:[id number] Age/Sex: 83 / F ADM Date: 09/05/24 Loc: ER Attending Dr: Ordering Physician: Margie Tellez Date of Service: 09/05/24 Procedure(s): XR hand LT min 3V Accession Number(s): [id number] cc: Mateus Blake M.D.; Margie Tellez [place] [address] Patient Name: OSCAR HORTA MRN: [id number] date: 1940 Sex: F Assigned Patient Location: ED.MAIN Current Patient Location: ED.MAIN Accession/Order Number: [id number] Exam Date: 09/05/2024 17:05 Report Date: 09/05/2024 17:52 At the request of: MARGIE TELLEZ Procedure: XR hand LT min 3V Exam: Radiographs: XR hand LT min 3V, XR chest 1V Reason for exam: pain Comparison: Chest x-ray dated 07/11/2024 XR/XR hand LT min 3V IMPRESSION: Degenerative changes throughout the left hand, most advanced at the DIP joints. Slight subluxation of the fourth DIP joint, this may be chronic. Lucency in the proximal aspect of the fourth middle phalanx is favored to represent a degenerative subchondral cyst although no chondral is also a consideration. Remainder of the left hand radiographs is unremarkable. Pulmonary hypertension. ICD. Right chest wall surgical clips. Remainder the chest is unremarkable. Electronically authenticated by: ALONDRA PRATT Date: 09/05/2024 17:52 Dictated By: Alondra Pratt M.D. Signed By: 09/05/241753 DD/ 51 TD/TT: General Labor Forklift Operator: [place] [address] XRay Report Signed Patient: DAISY HORTA MR#: [id number] : 1940 Acct:[id number] Age/Sex: 83 / F ADM Date: 09/05/24 Loc: ER Attending Dr: Ordering Physician: Margie Tellez Date of Service: 09/05/24 Procedure(s): XR bobby d LT min 3V Accession Number(s): [id number] cc: Mateus Blake M.D. ; Margie Tellez [address] [address] Patient Name: OSCAR HORTA MRN: [id number] date: 1940 Sex: F Assigned Patient Location: ED.MAIN Current Patient Loca tion: ED.MAIN Accession/Order Numb er: [id number] Exam Date: 17:05 Report Date: 09/05/2024 17:52 At the request of: MARGIE TELLEZ Procedure: XR hand L T min 3V Exam: Radiographs: X R hand LT min 3V, XR chest 1V Reason for exam: pain Comparison: Chest x- ray dated 07/11/2024 X R/XR hand LT min 3V IMPRESSION: Degenerative changes throughout the left hand, most advanced at the DIP joints. Slight subluxation o f the fourth DIP joint, this may be chronic. Lucency in the proximal aspect of t he fourth middle phalanx is favored to represent a degenerative subchon dral cyst although no chondral is also a consideration. Remainder of the lef t hand radiographs is unremarkable. Pulmonary hypertensi on. ICD. Right chest wall surgical clips. Remainder the chest is unremarkable. Electronically authenticated by: ALONDRA PRATT Date: 09/05/2024 17:52 Dictated By: Swapnil Pratt M.D. Signed By: 09/05/241753 DD/ 51 TD/TT: General Labor Forklift Operator: Troponin I High Sensitivity Reviewed date:09/05/2024 05:55:22 PM Interpretation: Performing Lab: Notes/Report: [facility] , Troponin I High Sensitivity 10.3 4.0-51.3 pg/mL CUT-OFF POINTS HAVE BEEN ESTABLISHED BASED ON THE FOURTH UNIVERSAL DEFINITION OF MYOCARDIAL INFARCTION. THE UPPER REFERENCE LIMIT (URL) OF TROPONIN, DEFINED THE 99TH PERCENTILE OF cTnI DISTRIBUTION IN A REFERENCE POPULATION, HAS BEEN CONFIRMED THE DECISION THRESHOLD FOR ND DIAGNOSIS. 99TH PERCENTILE = 51.4 PG/ML NOTE: HIGH-SENSITIVITY TROPONIN ASSAY IS NOT INTENDED TO BE USED IN ISOLATION BUT SHOULD BE INTERPRETED IN CONJUNCTION WITH OTHER DIAGNOSTIC AND CLINICAL INFORMATION. Performing Lab: see note ML - [facility] LB PROF 14(COMP METB) Reviewed date:09/05/2024 05:55:22 PM Interpretation: Performing Lab: Notes/Report: [facility] , Sodium 135 136-145 mmol/L Potassium 4.6 3.5-5.1 mmol/L Chloride 97 98-107 mmol/L Carbon Dioxide 27.7 21.0-32.0 mmol/L Anion Gap 14.9 Glucose 197 74-106 mg/dL Blood Urea Nitrogen 32.0 7.0-18.0 mg/dL Creatinine 2.06 0.55-1.02 mg/dL Estimated GFR ( Roma 28 >=60 mL/min/1.73m 2 Estimated GFR (Non- Mariza 23 >=60 mL/min/1.73m 2 BUN Creatinine Ratio 15.5 Calcium 9.0 8.5-10.1 mg/dL Bilirubin Total 0.5 0.2-1.0 mg/dL Aspartate Amino Transferase 11 15-37 U/L Alanine Aminotransferase 9 14-59 U/L Alkaline Phosphatase 73 46-116 U/L Total Protein 6.7 6.4-8.2 g/dL Albumin Level 2.8 3.4-5.0 g/dL Globulin 3.9 Albumin Globulin Ratio 0.7 Performing Lab: see note ML - [facility] LB LACTATE or LACTIC ACID Reviewed date:09/05/2024 05:55:22 PM Interpretation: Performing Lab: Notes/Report: [facility] , Lactate/Lactic Acid 2.3 0.4-2.0 mmol/L RESULT S CALLED TO YANA SZYMANSKI Performing Lab: see note ML - [facility] LB PROF 14(COMP METB) Reviewed date:09/06/2024 05:50:32 PM Interpretation: Performing Lab: Notes/Report: [facility] , Sodium 139 136-145 mmol/L Potassium 4.2 3.5-5.1 mmol/L Chloride 102 98-107 mmol/L Carbon Dioxide 27.1 21.0-32.0 mmol/L Anion Gap 14.1 Glucose 75 74-106 mg/dL Blood Urea Nitrogen 34.0 7.0-18.0 mg/dL Creatinine 1.94 0.55-1.02 mg/dL Estimated GFR ( Roma 30 >=60 mL/min/1.73m 2 Estimated GFR (Non- Mariza 25 >=60 mL/min/1.73m 2 BUN Creatinine Ratio 17.5 Calcium 8.8 8.5-10.1 mg/dL Bilirubin Total 0.6 0.2-1.0 mg/dL Aspartate Amino Transferase 16 15-37 U/L Alanine Aminotransferase 8 14-59 U/L Alkaline Phosphatase 63 46-116 U/L Total Protein 6.3 6.4-8.2 g/dL Albumin Level 2.4 3.4-5.0 g/dL Globulin 3.9 Albumin Globulin Ratio 0.6 Performing Lab: see note ML - [facility] LB Troponin I High Sensitivity Reviewed date:09/06/2024 05:50:32 PM Interpretation: Performing Lab: Notes/Report: [facility] , Troponin I High Sensitivity 15.2 4.0-51.3 pg/mL CUT-OFF POINTS HAVE BEEN ESTABLISHED BASED ON THE FOURTH UNIVERSAL DEFINITION OF MYOCARDIAL INFARCTION. THE UPPER REFERENCE LIMIT (URL) OF TROPONIN, DEFINED THE 99TH PERCENTILE OF cTnI DISTRIBUTION IN A REFERENCE POPULATION, HAS BEEN CONFIRMED THE DECISION THRESHOLD FOR ND DIAGNOSIS. 99TH PERCENTILE = 51.4 PG/ML NOTE: HIGH-SENSITIVITY TROPONIN ASSAY IS NOT INTENDED TO BE USED IN ISOLATION BUT SHOULD BE INTERPRETED IN CONJUNCTION WITH OTHER DIAGNOSTIC AND CLINICAL INFORMATION. Performing Lab: see note ML - [facility] LB CBC AUTO DIFF Reviewed date:09/23/2024 10:46:47 AM Interpretation: Performing Lab: Notes/Report: [facility] , White Blood Count 7.3 4.0-11.0 10 3/uL Red Blood Count 3.41 4.20-5.40 10 6/uL Hemoglobin 10.3 12.0-16.0 g/dL Hematocrit 32.2 36.0-48.0 % Mean Corpuscular Volume 94.4 81.0-99.0 fL Mean Corpuscular Hemoglobin 30.2 26.7-34.0 pg Mean Corpuscular HGB Conc 32.0 29.9-35.2 g/dL Red Cell Distribution Width 14.8 11.0-15.0 % Platelet Count 227 150-450 10 3/uL Mean Platelet Volume 8.9 9.5-13.5 fL Neutrophils Percent Auto 56.7 43.0-75.0 % Lymphocytes Percent Auto 27.9 20.5-60.0 % Monocytes Percent Auto 8.5 1.7-12.0 % Eosinophils Percent Auto 6.0 0.9-7.0 % Basophils Percent Auto 0.5 0.2-2.0 % Immature Granulocytes Pct Auto 0.4 0.0-0.5 % Neutrophils Absolute Auto 4.2 1.4-6.5 10 3/uL Lymphocytes Absolute Auto 2.0 1.2-3.8 10 3/uL Monocytes Absolute Auto 0.6 0.3-0.8 10 3/uL Eosinophils Absolute Auto 0.4 0.0-0.7 10 3/uL Basophils Absolute Auto 0.0 0.0-0.1 10 3/uL Immature Granulocytes Abs Auto 0.03 0.00-0.03 10 3/uL Performing Lab: see note ML - [facility] LB IRON Reviewed date:09/23/2024 10:46:47 AM Interpretation: Performing Lab: Notes/Report: [facility] , Iron 56.0 50.0-170.0 ug/dL Performing Lab: see note ML - [facility] LB Reason For Referral No Information Medications Medication SIG (Take, Route, Frequency, Duration) Notes Start Date End Date Status Hyoscyamine Sulfate 0.125 MG 1-2 tabs SL SL every 4 hrs PRN abd pain 03/19/2025 Active Tylenol 325 MG 2 tablet as needed Orally every 4 hrs Active traMADol HCl 50 MG 2 tablet Orally twice daily 03/07/2025 Active Sucralfate 1 GM TAKE 1 TABLET BY MOUTH FOUR TIMES A DAY *BEFORE MEALS AND AT BEDTIME* for 30 Active Simvastatin 40 MG 1 tablet in the evening Orally Once a day for 90 days Active Protonix 20 MG 1 tablet 1/2 to 1 hour before morning meal Orally BID Active predniSONE 5 MG 1 tablet with food or milk Orally Once a day for 5 days 11/05/2024 Active Albuterol Sulfate (2.5 MG/3ML) 0.083% 3 mL as needed Inhalation every 6 hrs for 30 days Dx: J44.9 Active Ondansetron 4 MG 1 tablet on the tongue and allow to dissolve Orally qid 03/07/2025 Active Metoprolol Succinate ER 200 MG 1/2 tablet Orally Once a day for 90 days Active metFORMIN HCl 500 MG TAKE 1 TABLET BY MOUTH TWICE A DAY for 90 Active Liothyronine Sodium 5 MCG 2 tablet on an empty stomach Orally Once a day for 90 days Active FreeStyle Sami 2 [place] - Use reader multiple times daily to check glucose DX E11.9 for 730 days Patients reader is not reading accurately even with new patch applied- please send new reader. Thank You 05/01/2024 Active FreeStyle Sami 2 Sensor - Dx: E11.9 apply 1 sensor every 2 week for 30 days Active Levothyroxine Sodium 112 MCG TAKE 1 TABLET BY MOUTH EVERY DAY for 90 days Active Ferrous Sulfate 325 (65 Fe) MG TAKE 1 TABLET BY MOUTH TWICE A DAY FOR 30 DAYS for 90 Active Leflunomide 20 MG 1 tablet Orally Once a day 12/18/2024 Active Fish Oil 1000 MG 1 capsule Orally twice a day 02/08/2024 Active Ketoconazole 2 % 1 application Externally Twice a day for 14 PRN 02/08/2024 Active Eliquis 5 MG 1/2 tablet Orally Twice a day Active Isosorbide Mononitrate ER 60 MG TAKE 1 TABLET BY MOUTH EVERY DAY for 90 Active Febuxostat 40 MG 1 tablet Orally Once a day 12/18/2024 Active HYDROcodone-Acetamino phen 5-325 MG 1 tablet Orally qid - prn for 7 days M54.50 PRN 02/12/2024 Active Basaglar KwikPen 100 UNIT/ML 10 units daily Subcutaneous daily for 30 days DX E11.9 01/13/2025 Active hydrALAZINE HCl 100 MG 1 tablet with food Orally TID if SBP>130 for 90 days PRN Active BD Pen Needle Mini U/F 31G X 5 MM USE 1 PEN NEEDLE VIA PEN FOUR TIMES DAILY TO INJECT INSULIN DX E11.9 90 DAYS for 90 Active HumaLOG 100 UNIT/ML as directed Injection sliding scale PRN 02/08/2024 Active Anastrozole 1 MG 1 tablet Orally Once a day Active Gabapentin 100 MG 1 capsule at bedtime Orally Once a day Active Aspirin 81 81 MG 1 tablet Orally Once a day Active Furosemide 40 MG 1 tablet Orally twice a day, every other day for 90 days Active Vitamin D3 125 MCG (5000 UT) 1 capsule Orally Once a day 02/08/2024 Active Ventolin HFA 108 (90 Base) MCG/ACT 2 puff as needed Inhalation every 4 hrs PRN 07/15/2024 Active Immunizations Vaccine Route Administration Date Status Comme nts Flu, Fluad (67747) 65 yrs and older, single-dose syringe IM Intramuscular 06/25/2024 Administered Social History Tobacco Use: Social History Observation Description Date Details (start date - stop date) Former Smoker 09/11/1958 - 09/11/2018 Tobacco Use/Smoking Question Answer Notes Patient is a former smoker When did you start smoking? 09/11/1958 When did you stop smoking? 09/11/2018 How long has it been since you last smoked? 1-5 years Additional Findings: Tobacco Non-User Current no n-smoker Alcohol Screen (Audit-C) Question Answer Notes Did you have a drink containing alcohol in the p ast year? No Points 0 Interpretation Negative AUDIT-C (Standard) Question Answer Notes Did you have a drink containing alcohol in the p ast year? 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 Problem 959067224 Acute on chronic diastolic (congestive) heart failure (I50.33) Active confirmed Problem 933574690 Chronic obstruct everett pulmonary disease with (acute) exacerbation (J44.1) Active confirmed Problem 30988622 Idiopathic gout, multiple sites (M10.09) Active confirmed Problem 0741072 Unspecified osteoarthritis, unspecified site (M19.90) Active confirmed Problem Degeneration of cervical intervertebral disc (46452903) Other cervical disc degeneration, cervicothoracic region (M50.33) Active confirmed Problem Chronic kidney disease stage 2 (859814117) Chronic kidney disease, stage 2 (mild) (N18.2) Active confirmed Problem 5618246 Dysplasia of vag betsey, 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) Active confirmed Problem Abnormal gait (96058547) Other abnormalities of gait and mobility (R26.89) Active confirmed Problem High grade squamous intraepithelial lesion on anal Papanicolaou smear (532132899800060) High grade squamous intraepithelial lesion on cytologic smear of anus (HGSIL) (R85.613) Active confirmed Problem Morbid obesity (969912428) Morbid obesity (E66.01) Active confirmed Problem Hypertension (56455077) Hypertension (I10) Active confirmed Problem Chronic obstructive pulmonary disease (83635132) Chronic obstructive pulmonary disease (COPD) (J44.9) Active confirmed Problem Gastroesophageal reflux disease (252334898) GERD (gastroesophageal reflux disease) (K21.9) Active confirmed Problem Chronic kidney disease (423363980) Chronic kidney disease (N18.9) Active confirmed Problem Coronary artery disease (08654523) CAD (coronary artery disease) (I25.10) Active confirmed Problem Hypertension (72932878) HTN (hypertension) (I10) Active confirmed Problem Tachycardia (1931559) Tachycardia (R00.0) Active confirmed Problem Hypothyroid (25835290) Hypothyroid (E03.9) Active confirmed Problem Osteopenia (480287616) Osteopenia (M85.80) Active confirmed Problem Chronic kidney disease stage 2 (061894608) Chronic kidney disease (CKD) stage G2/A1, mildly decreased glomerular filtration rate (GFR) between 60-89 mL/min/1.73 square meter and albuminuria creatinine ratio less than 30 mg/g (N18.2) Active confirmed Problem Urinary incontinence (444636266) Urinary incontinence (R32) Active confirmed Problem Paroxysmal atrial fibrillation (088237192) Paroxysmal atrial fibrillation (I48.0) Active confirmed Problem Atrial fibrillation (71649256) Atrial fibrillation (I48.91) Active confirmed Problem Acute combined systolic and diastolic heart failure (318153531251173) Acute combined systolic (congestive) and diastolic (congestive) heart failure (I50.41) Active confirmed Problem Type 2 diabetes mellitus (75229507) Type 2 diabetes mellitus (E11.9) Active confirmed Problem Rheumatoid arthritis (01928206) RA (rheumatoid arthritis) (M06.9) Active confirmed Problem Hypertriglyceridemia (680961948) Hypertriglyceridemia (E78.1) Active confirmed Problem Edema (476334587) Edema leg (R60.0) Active conf irmed Problem Rectal bleeding (17072499) Rectal bleeding (K62.5) Active confirmed Problem Acquired hypothyroidism (129110929) Acquired hypothyroidism (E03.9) Active confirmed Problem Iron deficiency anemia (14766284) Iron deficiency anemia (D50.9) Active confirmed Problem Inflammation of burs a of olecranon (640918478) Olecranon bursitis of left elbow (M70.22) Active confirmed Problem Chronic diastolic heart failure (929495363) Chronic diastolic heart failure (I50.32) Active confirmed Problem Iron deficiency anemia (06260401) Anemia, iron deficiency (D50.9) Active confirmed Problem Gastrointestinal hemorrhage (31520214) GI bleed (K92.2) Active confirmed Problem Diverticular disease of colon (058486374) Colon, diverticulosis (K57.30) Active confirmed Problem Right lower lobe pneumonia (093795539) Right lower lobe pneumonia (J18.9) Active confirmed Problem Asthma without statu s asthmaticus (51380997) AB (asthmatic bronchitis) (J45.909) Active confirmed Problem Chronic congestive heart failure (36293023) Chronic CHF (I50.9) Active confirmed Problem Peripheral vascular disease (590650800) Other peripheral vascular disease (I73.89) Active confirmed Problem Anemia of renal disease (548688906) Anemia of renal disease (D63.1) Active confirmed Problem Arteriosclerosis of artery of extremity (disorder) (112242239) Atherosclerosis of [place] artery of extremity (I70.209) Active confirmed Problem Chronic airway obstruction (75134260) Chronic airway obstruction (J44.9) Active confirmed Problem Long-term current us e of insulin (168555434) Long-term insulin use (Z79.4) Active confirmed Problem Pseudoaneurysm of femoral artery (653206056) Pseudoaneurysm of femoral artery (I72.4) Active confirmed Problem Severe protein calorie malnutrition (084461610) Severe protein-calorie malnutrition (E43) Active confirmed Problem Gastro-esophageal reflux disease (024676442) Gastro-esophageal reflux disease (K21.9) Active confirmed Problem Noninflammatory disorder of vulva (06392775) Vulval lesion (N90.89) Active confirmed Problem Rheumatoid arthritis (41393928) Rheumatoid arthritis flare (M06.9) Active confirmed Problem Peripheral vertigo (36319780) Vertigo, peripheral (H81.399) Active confirmed Problem Pure hypercholesterolemia (344887186) Pure hypercholesterolemia, unspecified (E78.00) Active confirmed Problem Malignant neoplasm o f female breast (946542118) Invasive ductal carcinoma of breast, 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) Active confirmed Problem Type II diabetes mellitus without complication (642077137) Controlled type 2 diabetes mellitus (E11.9) Active confirmed Problem Human papillomavirus (9508746) Human papillomavirus (A63.0) Active confirmed Problem Acquired thrombocytopenia (03310112) Acquired thrombocytopenia (D69.6) Active confirmed Problem Malnutrition of moderate degree (Carmen: 60% to less than 75% of standard weight) (51564045) Moderate protein malnutrition (E44.0) Active confirmed Problem Bruising (765447164) Bruising (T14.8XXA) Active confirmed Problem Type II diabetes mellitus without complication (873566791) Diabetes (E11.9) Active confirmed Problem Diabetes mellitus (93570517) Diabetes mellitus (E11.9) Active confirmed Problem Chronic kidney disease stage 4 (810088103) Acute worsening of stage 4 chronic kidney disease (N18.4) Active confirmed Vital Signs Temperature 97.6 degrees Fahrenheit 10/14/2024 Oximetry 96 % 10/14/2024 Blood pressure diastolic 66 mm Hg 03/19/2025 Height 61 in 03/19/2025 Blood pressure systolic 138 mm Hg 03/19/2025 Weight 129.6 lbs 03/19/2025 BMI 24.49 kg/m2 03/19/2025 Procedures Procedure Date Ordered Date Performed Result Body Sit e EAR IRRIGATION - performed 03/19/2025 N/A EAR IRRIGATION - performed 03/07/2025 N/A Encounters Encounter Location Date Provider Diagnosis [address] [address] 11/05/2024 Rony Hoy Acute bronchitis, unspecified organism J20.9 and Right lower lobe pneumonia J18.[address] [address] 04/16/2024 Rony Hoy Urinary incontinence R32 ; CAD (coronary artery disease) I25.10 and Diabetes mellitus E11.[address] [address] 04/23/2024 Rony Hoy Hypertension I10 ; Chronic obstructive pulmonary disease (COPD) J44.9 ; CAD (coronary artery disease) I25.10 and Controlled type 2 diabetes mellitus E11.[address] [address] 06/25/2024 Rony Hoy Chronic obstructive pulmonary disease (COPD) J44.9 ; Hypertension I10 ; CAD (coronary artery disease) I25.10 ; Acute combined systolic (congestive) and diastolic (congestive) heart failure I50.41 ; Controlled type 2 diabetes mellitus E11.9 and Encounter for immunization Z23 [address] [address] 09/19/2024 Rony Hoy Hypertension I10 ; Hypothyroidism E03.9 ; CAD (coronary artery disease) I25.10 ; Gastro-esophageal reflux disease K21.9 ; Pure hypercholesterolemia, unspecified E78.00 and Hypothyroid E03.[address] [address] 06/28/2024 Rony Hoy Hypertension I10 ; Chronic obstructive pulmonary disease (COPD) J44.9 and GI bleed K92.[address] [address] 09/12/2024 Rony Hoy CAD (coronary artery disease) I25.10 and Paroxysmal atrial fibrillation I48.[address] [place] [address] 12/18/2024 Rony Hoy Hypertension I10 ; C AD (coronary artery disease) I25.10 ; Diabetes mellitus E11.9 ; Chronic obstructive pulmonary disease (COPD) J44.9 and Acquired hypothyroidism E03.9 [facility] [address] [place] [address] 09/27/2024 Rony Hoy Bruising T14.8XXA [address] [address] 10/14/2024 Rony Hoy Foul smelling urine R82.90 ; Acute bronchitis, unspecified organism J20.9 and Cough R05.[address] [address] 03/19/2025 Rony Hoy Gastroenteritis K52. 9 and Cerumen impaction H61.[address] [address] 03/07/2025 Rony Hoy UTI (urinary tract infection) N39.0 and Bilateral impacted cerumen H61.23 [address] [place] [address] 05/02/2024 MATEUS BLAKE Urinary tract infect ion, site not specified N39.0 [address] [place] [address] 06/06/2024 Rony Blake Encounter for Medica re annual wellness exam Z00.[address] [address] 04/09/2024 Rony Maciely [address] [place] [address] 04/11/2024 Rony Maciely [facility] [address] [place] [address] 04/26/2024 Rony Maciely [facility] [address] [place] [address] 04/30/2024 Rony Maciely Chronic kidney disea se, stage 2 (mild) N18.2 and Diabetes mellitus E11.9 [facility] [address] [facility] [place] [address] 05/01/2024 Rony Blake Abnormal renal funct ion test R94.4 [facility] [address] [place] [address] 05/02/2024 Rony Hayden [facility] [address] [place] [address] 05/09/2024 Rony Blake [facility] [address] [place] [address] 05/09/2024 Rony Hayden [facility] [address] [place] [address] 05/14/2024 Rony Blake [facility] [address] [place] [address] 05/15/2024 Rony Blake [facility] [address] [place] [address] 05/16/2024 Rony Blake Urinary retention R3 3.9 [facility] [address] [place] [address] 05/16/2024 Rony Blake [facility] [address] [place] [address] 05/17/2024 Rony Blake Urinary incontinence R32 [facility] [address] [place] [address] 05/20/2024 Rony Blake [facility] [address] [place] [address] 06/06/2024 Rony Blake Medicare annual well ness visit, subsequent Z00.00 [facility] [address] [facility] [place] [address] 06/06/2024 Rony Blake [facility] [address] [place] [address] 06/12/2024 Rony Blake [facility] [address] [place] [address] 06/28/2024 Rony Blake [facility] [address] [place] [address] 07/15/2024 Rony Leonard [facility] [address] [facility] [place] [address] 09/06/2024 Rony modesta [facility] [address] [facility] [place] [address] 09/23/2024 Rony Blake [facility] [address] [facility] [place] [address] 09/23/2024 Rony modesta [facility] [address] [facility] [place] [address] 10/03/2024 Rony modesta [facility] [address] [facility] [place] [address] 10/13/2024 Rony Leonard [facility] [address] [facility] [place] [address] 01/13/2025 Rony Hoy Hypertension I10 [facility] [address] [facility] [address] 02/11/2025 Rony Hoy Hypertension I10 [facility] [address] [facility] [place] [address] 03/19/2025 Rony Blake Assessments Encounter Date Diagnosis (ICD Code) Assessment Notes Treatment Notes Treatment Clinical Notes Section Notes 09/12/2024 CAD (coronary artery disease) (ICD-10 - I25.10) 09/12/2024 Paroxysmal atrial fibrillation (ICD-10 - I48.0) 12/18/2024 Hypertension (ICD-10 - I10) 12/18/2024 CAD (coronary artery disease) (ICD-10 - I25.10) 09/27/2024 Bruising (ICD-10 - T14.8XXA) 10/14/2024 Foul smelling urine (ICD-10 - R82.90) 10/14/2024 Acute bronchitis, unspecified organism (ICD-10 - J20.9) Rest and drink more liquids, especially water. You may use a humidifier or vaporizer to help keep the drainage moist. Mylk-uev-gcolcqh Nasal Saline may help the stuffy and runny nose. Use Ibuprofen and or Tylenol as needed for fever, chills, body aches or pain. Children 5 years old should not be given hjkt-myw-ylmivlk cough and cold medications such as guaifenesin and dextromethorphan. If you're over age 5, you may try trbv-kze-gnvtmgt cold medications such as guaifenesin and dextromethorphan, or multi-symptom cold reliever such as Dayquil to help reduce the symptoms. Antibiotics have been prescribed. You should take these until completed and follow the directions. Antibiotics can sometimes cause upset stomach, and in rare cases, serious allergic reactions or serious gastrointestinal problems. If you start having severe abdominal pain, severe vomiting, or bloody diarrhea, you should be reevaluated by your physician or urgent care immediately. Follow up with your Primary Care Provider or return to clinic if symptoms do not improve within 3-5 days. If you develop severe symptoms such as shortness of breath, repeated vomiting, coughing up blood, or chest pain you should go to the emergency room or call 911 04/30/2024 Chronic kidney disease, stage 2 (mild) (ICD-10 - N18.2) 04/30/2024 Diabetes mellitus (ICD-10 - E11.9) 05/01/2024 Abnormal renal function test (ICD-10 - R94.4) 05/16/2024 Urinary retention (ICD-10 - R33.9) 05/17/2024 Urinary incontinence (ICD-10 - R32) 06/06/2024 Medicare annual wellness visit, subsequent (ICD-10 - Z00.00) 01/13/2025 Hypertension (ICD-10 - I10) 02/11/2025 Hypertension (ICD-10 - I10) 11/05/2024 Acute bronchitis, unspecified organism (ICD-10 - J20.9) Rest and drink more liquids, especially water. You may use a humidifier or vaporizer to help keep the drainage moist. Ahxo-odv-cwvgojz Nasal Saline may help the stuffy and runny nose. Use Ibuprofen and or Tylenol as needed for fever, chills, body aches or pain. Children 5 years old should not be given gzll-oxa-apcgais cough and cold medications such as guaifenesin and dextromethorphan. If you're over age 5, you may try cmfn-dae-fqzdepk cold medications such as guaifenesin and dextromethorphan, or multi-symptom cold reliever such as Dayquil to help reduce the symptoms. Antibiotics have been prescribed. You should take these until completed and follow the directions. Antibiotics can sometimes cause upset stomach, and in rare cases, serious allergic reactions or serious gastrointestinal problems. If you start having severe abdominal pain, severe vomiting, or bloody diarrhea, you should be reevaluated by your physician or urgent care immediately. Follow up with your Primary Care Provider or return to clinic if symptoms do not improve within 3-5 days. If you develop severe symptoms such as shortness of breath, repeated vomiting, coughing up blood, or chest pain you should go to the emergency room or call 911 11/05/2024 Right lower lobe pneumonia (ICD-10 - J18.9) egophony on exam 03/19/2025 Gastroenteritis (ICD-10 - K52.9) Get plenty of rest. Stay hydrated by sucking on ice chips or taking small sips of water. You can also try drinking clear soda, clear broths or noncaffeinated sports drinks. Stop eating solid foods for a few hours to let your stomach settle. East back into eating by eating bland, ymen-lk-mhysje foods like crackers, toast, gelatin, bananas, rice and chicken. Try to avoid foods/substances including dairy products, caffeine, alcohol, nicotine and fatty or highly seasoned foods. Medications such as ibuprofen or tylenol can make your stomach more upset, so use sparingly if at all. Also avoid ozgd-lhj-atvveed anti-diarrheal medications because it can make it harder for your body to eliminate the virus. 03/19/2025 Cerumen impaction (ICD-10 - H61.20) 03/07/2025 UTI (urinary tract infection) (ICD-10 - N39.0) 03/07/2025 Bilateral impacted cerumen (ICD-10 - H61.23) 04/16/2024 Urinary incontinence (ICD-10 - R32) stoipping glimepoeride - jose antonio need to inc alntus if sugar running higher next week 04/16/2024 CAD (coronary artery disease) (ICD-10 - I25.10) 04/23/2024 Hypertension (ICD-10 - I10) up a bit today 04/23/2024 Chronic obstructive pulmonary disease (COPD) (ICD-10 - J44.9) stable - mild cough 06/06/2024 Encounter for Medicare annual wellness exam (ICD-10 - Z00.00) 05/02/2024 Urinary tract infection, site not specified (ICD-10 - N39.0) 09/19/2024 Hypertension (ICD-10 - I10) diastolic low - no change in meds 09/19/2024 Hypothyroidism (ICD-10 - E03.9) on meds - checking on labs 06/25/2024 Chronic obstructive pulmonary disease (COPD) (ICD-10 - J44.9) 06/25/2024 Hypertension (ICD-10 - I10) 06/28/2024 Hypertension (ICD-10 - I10) 06/28/2024 Chronic obstructive pulmonary disease (COPD) (ICD-10 - J44.9) 06/28/2024 GI bleed (ICD-10 - K92.2) 06/25/2024 CAD (coronary artery disease) (ICD-10 - I25.10) 09/19/2024 CAD (coronary artery disease) (ICD-10 - I25.10) no chest pain 04/23/2024 CAD (coronary artery disease) (ICD-10 - I25.10) No chest pain 04/16/2024 Diabetes mellitus (ICD-10 - E11.9) 10/14/2024 Cough (ICD-10 - R05.9) 12/18/2024 Diabetes mellitus (ICD-10 - E11.9) 12/18/2024 Chronic obstructive pulmonary disease (COPD) (ICD-10 - J44.9) 04/23/2024 Controlled type 2 diabetes mellitus (ICD-10 - E11.9) great control 09/19/2024 Gastro-esophageal reflux disease (ICD-10 - K21.9) Stable on emeds 06/25/2024 Acute combined systolic (congestive) and diastolic (congestive) heart failure (ICD-10 - I50.41) 06/25/2024 Controlled type 2 diabetes mellitus (ICD-10 - E11.9) 09/19/2024 Pure hypercholesterolem ia, unspecified (ICD-10 - E78.00) on meds - stable 12/18/2024 Acquired hypothyroidism (ICD-10 - E03.9) 09/19/2024 Hypothyroid (ICD-10 - E03.9) 06/25/2024 Encounter for immunization (ICD-10 - Z23) Plan Of Treatment Pending Test Test Name Order Date CMP (COMPLETE METABOLIC PANEL) 3 UA (URINALYSIS, COMPLETE) 05/09/2023 CULTURE, STOOL 03/19/2025 HEMOGLOBIN A1C (GLYCO) 09/19/2024 IRON, TOTAL 09/19/2024 LIPID PANEL (CHOL/TRIG/HDL/LDL) 09/19/19 25 CBC WITH DIFF 09/19/2024 VITAMIN D, 25 LEVEL (TOTAL) 09/19/2024 BMP w/GFR 04/30/2024 Urinalysis Microscopic 05/09/2023 EAR IRRIGATION - performed 03/19/2025 EAR IRRIGATION - performed 03/07/2025 C DIFF TOX PCR STOOL 03/19/2025 CBC W/AUTO DIFF 07/17/2023 CULTURE URINE 05/09/2023 GLYCOHEMOGLOBIN A1C 03/13/2023 CT ABD and PELV W CON 03/19/2025 THYROID PANEL (T4/TSH/FREE T3) 5 THYROID PANEL (T4/TSH/FREE T3) 3 MG MAMM SCREEN 3D DAVID CAD 06/06/2024 BASIC METABOLIC PANEL 05/01/2024 CMP (COMP MET [place]) w/eGFR CKD-EPI 2024 Insurance Providers Payer Name Payer Address Payer Phone Subscriber Number Group Number Insured Name Patient Relationship to Insured Coverage Start Date Coverage End Date [place] [address] [place] [address] [phone] [id number] Oscar Horta Self - patient is the insured [address] [id number] Oscar Horta Self - patient is the insured 8 Medications Administered Medication Instructions Date of Administration Dosage Notes Kenalog-40 02/08/2024 80 mg 80 Ketorolac Tromethamine 02/08/2024 30 mg Medical (General) History Medical History History ICD Code Edema R60.9 Olecranon bursitis of left elbow M70.22 Acute bronchitis J20.9 Invasive ductal carcinoma of breast, rig ht C50.911 Rectal bleeding K62.5 Furuncle left hand L02.522 Skin lesion L98.9 Over weight E66.3 Screening mammogram for breast cancer Z1 2.31 COVID-19 virus infection U07.1 Chronic airway obstruction J44.9 Chronic obstructive pulmonary disease (C OPD) J44.9 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 Actinic keratoses L57.0 Seborrheic keratosis L82.1 Gastritis K29.70 Cellulitis of right foot L03.115 Vertigo, peripheral H81.399 Vertigo of central origin H81.4 Other abnormalities of gait and mobility R26.89 Recurrent falls R29.6 Chronic diastolic heart failure I50.32 Atherosclerosis of [place] artery of extr emity I70.209 Paroxysmal atrial fibrillation I48.0 At risk for falls Z91.81 Vulval lesion N90.89 Edema leg R60.0 Chronic kidney disease, stage 2 (mild) N 18.2 Acute combined systolic (con gestive) and diastolic (congestive) heart failure I50.41 AB (asthmatic bronchitis) J45.909 Achilles bursitis of right lower extremi ty M76.61 Rupture of blood vessel R58 Well adult Z00.00 High grade squamous intraepi thelial lesion on cytologic smear of anus (HGSIL) R85.613 Human papillomavirus A63.0 Colon, diverticulosis K57.30 Low back pain, unspecified M54.50 Other cervical disc degeneration, cervic othoracic region M50.33 Pseudoaneurysm of femoral artery I72.4 Hypertriglyceridemia E78.1 Other peripheral vascular disease I73.89 Osteopenia M85.80 Hypertension I10 Hypothyroidism E03.9 Pure hypercholesterolemia, unspecified E 78.00 CAD (coronary artery disease) I25.10 S/P PTCA (percutaneous transluminal lucien nary angioplasty) Z98.61 Gastro-esophageal reflux disease K21.9 Controlled type 2 diabetes mellitus E11. 9 gluteal abscess Surgical History Surgery Date(Month/Year) Defib placement 07/04 I and D Right Glut Abcess lumpectomy stent in right leg stent in kidney stent in heart appendix Hospitalization History Reason Date(Month/Year) Gout/Arthritis/ Bronchitis 2022
--- OUTSIDE RECORDS SUMMARY | 2025-03-19 15:07 | XMS_ITS | Encounter Summary ---
Author Organization [facility] Address [address] [place] [address] Care Team Providers Care Senior Financial Accountant Name Role Phone Gil Blake MD Primary Care Provider [phone] Source Comments In the event this information is protected by the Federal Confidentiality of Alcohol and Drug AbusePatient Records regulations: The Federal rules restrict any use of the information to criminally investigate or prosecute any alcohol or drug abuse patient.[facility] Encounter Details Date Type Department Care Team (Late st Contact Info) Description 04/02/2020 Patient Msg Gynecology Oncology [address] [place] [address] Provider, [facility] Surgery Schedule for 04/30 Social History Tobacco Use Types Packs/Day Years Used Date Smoking Tobacco: Former Cigarettes 0.5 50 1 - 06/28/2018 Smokeless Tobacco: Never Alcohol Use Standard Drinks/Week Comments No 0 (1 standard drink = 0.6 oz pur e alcohol) Comments No Sex and Gender Information Value Date Recorded Sex Assigned at Not on file Legal Sex Female 11:34 AM EDT Gender Identity Not on file Sexual Orientation Not on file documented as of this encounter Plan of Treatment Upcoming Encounters Date Type Department Care Team (Late st Contact Info) Description 04/08/2025 1:15 PM EDT Office Visit [facility] [address] [facility] [facility] [place] [address] labs 04/08/2025 1:20 PM EDT Visit (SP) Office Hematology/Oncology [address] [place] [address] Vaibhav Ashton MD [address] [place] [address] 6 month follow up documented as of this encounter Visit Diagnoses Not on filedocumented in this encounter Care Teams Senior Financial Accountant Relationship Specialty Start Date End Date Gil Blake MD PCP - General Family Medicine 01/05/17 documented as of this encounter
--- OUTSIDE RECORDS SUMMARY | 2025-03-19 15:07 | XMS_ITS | Encounter Summary ---
Author Organization [facility] Address [address] [place] [address] Care Team Providers Care Straight Cutter Name Role Phone Gil Blake MD Primary Care Provider [phone] Encounter Details Date Type Department Care Team (Late st Contact Info) Description 01/29/2025 Orders Only [facility] [address] [place] [address] Brian Potter MD [address] [place] [address] Social History Tobacco Use Types [...] No 09/12/2024 Housing Stability Vital Sign Answer Tryee e Recorded In the last 12 months, was t here a time when you were not able to pay the mortgage or rent on time? No 09/12/2024 In the past 12 months, how m any times have you moved where you were living? 1 09/12/2024 At any time in the past 12 m [facility], were you homeless or living in [...] - ICD Routine 01/29/2025 12:00 AM EDT documented in this encounter Results * Cardiac device check - Remote ICD (01/29/2025 12:00 AM EDT) Anatomical Region Laterality Modality Other 01/29/2025 us Brian Potter MD CV IMPLANTABLE CARDIAC DEVICE MN OCEDURES Final Result documented in this encounter Visit Diagnoses Not on filedocumented in this encounter Care Teams Straight Cutter Relationship Specialty Start Date End Date Gil Blake MD [address] [facility] [address] [address] PCP - General 09/16/22 documented as of this encounter
--- OUTSIDE RECORDS SUMMARY | 2025-03-19 15:07 | XMS_ITS | Encounter Summary ---
Author Organization [facility] Address [address] [place] [address] Care Team Providers Care Rn Medication Name Role Phone Gil Blake MD Primary Care Provider [phone] Encounter Details Date Type Department Care Team (Late st Contact Info) Description 02/11/2025 Orders Only [facility] [address] [place] [address] Marisol Khoury MD [address] [place] [address] Social History Tobacco Use Types [...] any time in the past 12 m [facility], were you homeless or living in a residential (including now)? No 09/12/2024 Hunger Vital Sign [...] - ICD Routine 02/11/2025 12:00 AM EDT documented in this encounter Results * Cardiac device check - Remote ICD (02/11/2025 12:00 AM EDT) Anatomical Region Laterality Modality Other 02/11/2025 Marisol Khoury MD CV IMPLANTABLE CARDIAC DEVICE PROCEDURES Final Result documented in this encounter Visit Diagnoses Not on filedocumented in this encounter Care Teams Rn Medication Relationship Specialty Start Date End Date Gil Blake MD [address] [facility] [address] [address] PCP - General 09/16/22 documented as of this encounter
[2025-03-19 15:32] LABS: Hematocrit 30.4 % (36.0-48.0); Hemoglobin 10.1 g/dL (12.0-16.0); Immature Granulocytes Abs Auto 0.06 10^3/uL (0.00-0.03); Immature Granulocytes Pct Auto 0.7 % (0.0-0.5); Lymphocytes Absolute Auto 1.9 10^3/uL (1.2-3.8); Mean Corpuscular HGB Conc 33.2 g/dL (29.9-35.2); Mean Corpuscular Hemoglobin 31.8 pg (26.7-34.0); Mean Corpuscular Volume 95.6 fL (81.0-99.0); Platelet Count 222 10^3/uL (150-450); Red Blood Count 3.18 10^6/uL (4.20-5.40); White Blood Count 8.4 10^3/uL (4.0-11.0)
[2025-03-19 15:53] LABS: Anion Gap 16.2; Blood Urea Nitrogen 29.0 mg/dL (7.0-18.0); Calcium 9.3 mg/dL (8.5-10.1); Carbon Dioxide 29.8 mmol/L (21.0-32.0); Chloride 101 mmol/L (98-107); Estimated GFR (African America 29 (>=60 mL/min/1.73m^2); Estimated GFR (Non-African Ame 24 (>=60 mL/min/1.73m^2); Glucose 138 mg/dL (74-106); Potassium 3.0 mmol/L (3.5-5.1); Sodium 144 mmol/L (136-145)
[2025-03-19 15:57] LABS: Alanine Aminotransferase 19 U/L (14-59); Albumin Globulin Ratio 0.7; Albumin Level 2.9 g/dL (3.4-5.0); Alkaline Phosphatase 119 U/L (46-116); Amylase 75 U/L (25-115); Aspartate Amino Transferase 18 U/L (15-37); Globulin 4.1 g/dL; Lipase 107.0 U/L (16.0-77.0); Total Protein 7.0 g/dL (6.4-8.2)
[2025-03-19 17:38] LABS: Glucose Urine UA NEGATIVE (NEGATIVE)
[2025-03-19 17:45] LABS: Cast Seen? NONE SEEN #/LPF (NONE SEEN); Crystals Seen? None Seen #/HPF (None Seen); Urine Culture Indicated NO
[2025-03-19] MEDS: 0.9 % SODIUM CHLORIDE 1,000 ML 125 ML IV (18:14)
[2025-03-19] MEDS: METRONIDAZOLE/SODIUM CHLORIDE 500 MG/100 ML PREMIX 100 MG IV (18:56)
[2025-03-19] MEDS: APIXABAN 5 MG TABLET 2.5 MG PO (21:36)
[2025-03-19] MEDS: POTASSIUM CHLORIDE 10 MEQ ER TABLET 20 MEQ PO ×2 (21:37→21:39)
[2025-03-19] MEDS: GABAPENTIN 100 MG CAPSULE PO (21:37)
[2025-03-19] MEDS: SODIUM CHLORIDE 0.45 % 1,000 ML 100 ML IV (21:37)
[2025-03-19] MEDS: ATORVASTATIN CALCIUM 20 MG TABLET PO (21:37)
[2025-03-19] MEDS: ONDANSETRON 4 MG RAPDIS TABLET SL (21:37)
[2025-03-19] MEDS: PANTOPRAZOLE SODIUM 40 MG TABLET.DR PO (21:38)
[2025-03-19] MEDS: OXYCODONE HCL 5 MG TABLET PO (21:40)
[2025-03-19] MEDS: ACETAMINOPHEN 325 MG TABLET 650 MG PO (21:40)
[2025-03-20 03:26] VITALS: BP 111/68; PULSE 75; TEMP 36.8; O2SAT 90
[2025-03-20] MEDS: METRONIDAZOLE/SODIUM CHLORIDE 500 MG/100 ML PREMIX 100 MG IV ×3 (03:33→21:38)
[2025-03-20] MEDS: OXYCODONE HCL 5 MG TABLET PO ×2 (03:33→17:02)
[2025-03-20] MEDS: ONDANSETRON 4 MG RAPDIS TABLET SL ×2 (03:33→17:02)
[2025-03-20 05:14] LABS: Hematocrit 25.5 % (36.0-48.0); Hemoglobin 8.3 g/dL (12.0-16.0); Mean Corpuscular HGB Conc 32.5 g/dL (29.9-35.2); Mean Corpuscular Hemoglobin 31.1 pg (26.7-34.0); Mean Corpuscular Volume 95.5 fL (81.0-99.0); Platelet Count 181 10^3/uL (150-450); Red Blood Count 2.67 10^6/uL (4.20-5.40); White Blood Count 6.5 10^3/uL (4.0-11.0)
[2025-03-20] MEDS: LEVOTHYROXINE SODIUM 112 MCG TABLET PO (05:35)
[2025-03-20 05:56] LABS: Alanine Aminotransferase 13 U/L (14-59); Albumin Globulin Ratio 0.6; Albumin Level 2.2 g/dL (3.4-5.0); Alkaline Phosphatase 98 U/L (46-116); Anion Gap 10.9; Aspartate Amino Transferase 11 U/L (15-37); Blood Urea Nitrogen 32.0 mg/dL (7.0-18.0); Calcium 8.5 mg/dL (8.5-10.1); Carbon Dioxide 33.0 mmol/L (21.0-32.0); Chloride 103 mmol/L (98-107); Estimated GFR (African America 28 (>=60 mL/min/1.73m^2); Estimated GFR (Non-African Ame 23 (>=60 mL/min/1.73m^2); Globulin 3.6 g/dL; Glucose 132 mg/dL (74-106); Sodium 144 mmol/L (136-145); Total Protein 5.8 g/dL (6.4-8.2)
[2025-03-20 06:12] LABS: Lipase 71.0 U/L (16.0-77.0)
[2025-03-20 06:13] LABS: Potassium 2.9 mmol/L (3.5-5.1)
[2025-03-20 07:06] LABS: Iron 55.0 ug/dL (50.0-170.0); Percent Iron Saturation 26.1 %; Total Iron Binding Capacity 211.0 ug/dL (250.0-450.0)
[2025-03-20 07:41] VITALS: BP 110/59; PULSE 92; TEMP 36.6; O2SAT 89
--- NOTE | 2025-03-20 09:06 | SWNOTE1 ---
SW and I met with pt in room to discuss d/c needs. Pt's family was at bedside. Pt is from home where she lives with her significant other who was in room. Pt needs daily assistance and she uses a walker. She does not have any services coming into home currently. Pt appears to not have any d/c needs at this time. SW to follow as needed.
[2025-03-20 09:10] LABS: Ferritin 225.0 ng/mL (8.0-252.0)
--- NOTE | 2025-03-20 09:41 | SWNOTE1 ---
Important Message from Medicare reviewed and discussed with patient. Pt. verbalized understanding and signed the form. Original given to patient and copy placed in patient?s chart.
[2025-03-20] MEDS: 0.9 % SODIUM CHLORIDE 1,000 ML 125 ML IV ×2 (09:49→18:08)
[2025-03-20] MEDS: METOPROLOL SUCCINATE 100 MG TAB.ER.24H PO (09:51)
[2025-03-20] MEDS: APIXABAN 5 MG TABLET 2.5 MG PO (09:51)
[2025-03-20] MEDS: ASPIRIN 81 MG TABLET.DR PO (09:51)
[2025-03-20] MEDS: LIOTHYRONINE SODIUM 5 MCG TABLET 10 MCG PO (09:51)
[2025-03-20] MEDS: POTASSIUM CHLORIDE 10 MEQ ER TABLET 40 MEQ PO (09:51)
[2025-03-20] MEDS: PANTOPRAZOLE SODIUM 40 MG TABLET.DR PO ×2 (09:51→21:40)
[2025-03-20] MEDS: GABAPENTIN 100 MG CAPSULE PO ×2 (09:51→21:39)
[2025-03-20] MEDS: ISOSORBIDE MONONITRATE 60 MG TAB.ER.24H PO (09:51)
[2025-03-20] MEDS: INSULIN GLARGINE 300 UNIT/3 ML INSULN.PEN 16 UNIT SQ (09:53)
[2025-03-20] MEDS: INSULIN ASPART 300 UNIT/3 ML PEN SUBQ ×2 (09:53→22:40)
--- NOTE | 2025-03-20 10:55 | PM.HP ---
HPI H&P: HPI History of Present Illness Chief complaint: DIARRHEA DEHYDRATION Narrative: Mrs. Horta is an 85-year-old female who came to the emergency room with a few days history of abdominal pain and diarrhea. Patient reported witnessing some blood in the stool. Nausea but no vomiting. Patient is on Eliquis and aspirin. Patient never had colonoscopy before. CAT scan showed evidence of diverticulitis. No chest pain or palpitation. No other acute signs or symptoms Opioid HPI Opioid Management Most Recent Pain and Opioid Data: Last Pain Scale 0 Today, 06:23 Last Pain Intensity 3 09/06/24, 13:15 Last Pain Assessment 03/19/25, 19:48 Last MAR Pain Assessment 03/19/25, 21:40 Last ORT Total Score 0 03/19/25, 19:48 Last ORT Risk Category Low Risk 03/19/25, 19:48 Review of Systems ROS Status of ROS 10 or more systems reviewed and unremarkable except as noted in history and below [facility] Medical History (Updated 03/20/25 @ 10:57 by Marly Phan MD) Acute kidney injury superimposed on chronic kidney disease ?N17.9 - Acute kidney failure, unspecified (ICD-10) ?N18.9 - Chronic kidney disease, unspecified (ICD-10) Cellulitis of arm, left ?L03.114 - Cellulitis of left upper limb (ICD-10) Defibrillator discharge ?Z45.02 - Encounter for adjustment and management of automatic implantable cardiac defibrillator (ICD-10) Lower gastrointestinal hemorrhage ?K92.2 - Gastrointestinal hemorrhage, unspecified (ICD-10) Anemia in stage 4 chronic kidney disease ?N18.4 - Chronic kidney disease, stage 4 (severe) (ICD-10) ?D63.1 - Anemia in chronic kidney disease (ICD-10) Abscess, gluteal, right ?L02.31 - Cutaneous abscess of buttock (ICD-10) Morbid obesity ?E66.01 - Morbid (severe) obesity due to excess calories (ICD-10) History of tobacco abuse ?Z87.891 - Personal history of nicotine dependence (ICD-10) Acute renal failure ?N17.9 - Acute kidney failure, unspecified (ICD-10) Elevated diaphragm ?J98.6 - Disorders of diaphragm (ICD-10) Pleural effusion ?J90 - Pleural effusion, not elsewhere classified (ICD-10) COPD with acute exacerbation ?J44.1 - Chronic obstructive pulmonary disease with (acute) exacerbation (ICD-10) Acute hypoxic respiratory failure ?J96.01 - Acute respiratory failure with hypoxia (ICD-10) Acute on chronic diastolic CHF (congestive heart failure) ?I50.33 - Acute on chronic diastolic (congestive) heart failure (ICD-10) Type 2 diabetes mellitus ?E11.9 - Type 2 diabetes mellitus without complications (ICD-10) Hypoxemia ?R09.02 - Hypoxemia (ICD-10) Abscess ?L02.91 - Cutaneous abscess, unspecified (ICD-10) Abscess ?L02.91 - Cutaneous abscess, unspecified (ICD-10) Cellulitis and abscess of left leg ?L03.116 - Cellulitis of left lower limb (ICD-10) ?L02.416 - Cutaneous abscess of left lower limb (ICD-10) Hyperkalemia ?E87.5 - Hyperkalemia (ICD-10) Moderate protein-calorie malnutrition ?E44.0 - Moderate protein-calorie malnutrition (ICD-10) CHF (congestive heart failure) ?I50.9 - Heart failure, unspecified (ICD-10) Hypoxia ?R09.02 - Hypoxemia (ICD-10) Acute infective exacerbation of chronic obstructive airway disease ?J44.1 - Chronic obstructive pulmonary disease with (acute) exacerbation (ICD-10) Weakness ?R53.1 - Weakness (ICD-10) Acute right hip pain ?M25.551 - Pain in right hip (ICD-10) Rheumatoid arthritis flare ?M06.9 - Rheumatoid arthritis, unspecified (ICD-10) Difficulty in walking ?R26.2 - Difficulty in walking, not elsewhere classified (ICD-10) Arthralgia ?M25.50 - Pain in unspecified joint (ICD-10) CAD, multiple vessel ?I25.10 - Atherosclerotic heart disease of [place] coronary artery without angina pectoris (ICD-10) Atrial fibrillation ?I48.91 - Unspecified atrial fibrillation (ICD-10) COPD (chronic obstructive pulmonary disease) ?J44.9 - Chronic obstructive pulmonary disease, unspecified (ICD-10) Gouty arthritis ?M10.9 - Gout, unspecified (ICD-10) Hypothyroidism (acquired) ?E03.9 - Hypothyroidism, unspecified (ICD-10) Iron deficiency anemia ?D50.9 - Iron deficiency anemia, unspecified (ICD-10) Surgical History History of cardiac defibrillator placement ?Z95.810 - Presence of automatic (implantable) cardiac defibrillator (ICD-10) H/O right mastectomy ?Z90.11 - Acquired absence of right breast and nipple (ICD-10) H/O: hysterectomy ?Z90.710 - Acquired absence of both cervix and uterus (ICD-10) History of appendectomy ?Z90.49 - Acquired absence of other specified parts of digestive tract (ICD-10) H/O heart artery stent ?Z95.5 - Presence of coronary angioplasty implant and graft (ICD-10) Family History Father Family history of CHF (congestive heart failure) Family history of cancer Family history of hypertension Sister Family history of cancer Family history of diabetes mellitus Mother Family history of diabetes mellitus Family history of hypertension Social History (Updated 03/19/25 @ 20:21 by Marci Willis RN) Within the past year, how often did you have a drink containing alcohol: never Within the past year, how often did you have six or more drinks on one occasion: never Score interpretation: A score less than 3 is consistent with normal alcohol consumption. Smoking status: Former smoker Non-prescribed substance use: denies use Previous occupational history: retired Known occupational exposures/hazards: No Highest level of school completed/degree received: high school graduate Are you now , , , , never or living with a partner: In a typical week, how many times do you talk on the telephone with family, friends, or neighbors: 3 or more times per week How often do you get together with friends or relatives: 3 or more times per week How often do you attend religious or congregation services: 4 or more times per year Little interest or pleasure in doing things: not at all Feeling down, depressed, or hopeless: not at all Feel stressed/tense/nervous/anxious/difficulty sleeping: not at all Do you think of yourself as: straight/heterosexual Gender Identity: female Meds Home Medications and Allergies Home Medications ?Medication ?Instructions ?Recorded ?Confirmed ?Type albuterol sulfate 2.5 mg/3 mL 2.5 mg inhalation Q4H PRN 03/04/23 03/19/25 History (0.083 %) solution for nebulization shortness of breath or wheezing aspirin 81 mg tablet,delayed 81 mg PO DAILY 03/04/23 03/19/25 History release (Adult Low Dose Aspirin) isosorbide mononitrate 60 mg 60 mg PO DAILY 03/04/23 03/19/25 History tablet,extended release 24 hr levothyroxine 112 mcg tablet 112 mcg PO DAILY 03/04/23 03/19/25 History liothyronine 5 mcg tablet 10 mcg PO DAILY 03/04/23 03/19/25 History sucralfate 1 gram tablet 1 g PO ACHS 03/04/23 03/19/25 History febuxostat 40 mg tablet 40 mg PO DAILY 08/20/23 03/19/25 History insulin glargine 100 unit/mL 16 unit subcut QAM 10/14/23 03/19/25 History subcutaneous solution (Lantus U-100 Insulin) metformin 500 mg tablet 500 mg PO DAILY 06/26/24 03/19/25 History simvastatin 40 mg tablet 40 mg PO .QHS 06/26/24 03/19/25 History pantoprazole 40 mg tablet,delayed 40 mg PO BID #60 tabs 06/27/24 03/19/25 Rx release (Protonix) hydralazine 50 mg tablet 50 mg PO TID PRN hypertension 09/06/24 03/19/25 History apixaban 5 mg tablet (Eliquis) 2.5 mg PO BID 03/06/25 03/19/25 History gabapentin 100 mg capsule 100 mg PO BID #60 caps 03/06/25 03/19/25 Rx leflunomide 20 mg tablet 20 mg PO DAILY 03/06/25 03/19/25 History potassium chloride 20 mEq oral 20 meq PO BID 03/06/25 03/20/25 History packet (Klor-Con) tramadol 50 mg tablet 50 mg PO BID 03/06/25 03/19/25 History Allergies Allergy/AdvReac Type Severity Reaction Status Date / Time oxycodone AdvReac Severe nausea and Verified 03/19/25 14:43 vomiting tramadol AdvReac Severe Vomiting Verified 03/19/25 14:43 cefdinir AdvReac Unknown Vomiting Verified 03/19/25 14:43 ciprofloxacin AdvReac Unknown Vomiting Verified 03/19/25 14:43 Exam Narrative Exam Narrative: [pt is awake and alert. oriented to place, time and person HEENT: [place] conjunctiva and NL buccal mucosa Neck: Supple, no tenderness Endocrine: No Thyromegaly. Vascular: No JVD or carotid bruit. Lymphatic: No cervical lymphadenopathy. Chest: CTA no DTP. Heart RRR, no extra sound or murmur. Abd: Soft, tenderness in the suprapubic and right lower quadrant LE: No cyanosis or clubbing, no varices or edema. Neuro: A A O. Nl speech, comprehension and attention. Nl and symetrical motor and tone examination through out. Some cognitive loss. Mild to moderate functional loss. Nonfocal. []] Constitutional Vital Signs, click to edit/add: Last Vital Signs Temp 97.9 F 03/20/25 07:41 Pulse 92 H 03/20/25 07:41 Resp 16 03/20/25 07:41 BP 110/59 03/20/25 07:41 Pulse Ox 89 L 03/20/25 07:41 O2 Del Method Room Air 03/20/25 07:41 Results Labs Labs: Short CBC 03/19/25 03/20/25 Range/Units 15:15 04:38 WBC 8.4 6.5 (4.0-11.0) 10^3/uL Hgb 10.1 L 8.3 L (12.0-16.0) g/dL Hct 30.4 L 25.5 L (36.0-48.0) % Plt Count 222 181 (150-450) 10^3/uL BMP 03/19/25 03/20/25 15:15 04:38 Sodium 144 144 Potassium 3.0 L 2.9 L* Chloride 101 103 Carbon Dioxide 29.8 33.0 H BUN 29.0 H 32.0 H Creatinine 2.02 H 2.07 H Glucose 138 H 132 H Calcium 9.3 8.5 Liver Function 03/19/25 03/20/25 Range/Units 15:15 04:38 Total Bilirubin 0.5 0.3 (0.2-1.0) mg/dL Direct Bilirubin 0.1 (0.0-0.2) mg/dL AST 18 11 L (15-37) U/L ALT 19 13 L (14-59) U/L Alkaline Phosphatase 119 H 98 (46-116) U/L Albumin 2.9 L 2.2 L (3.4-5.0) g/dL Urine 03/19/25 Range/Units 17:24 Urine Color Lt. yellow (YELLOW) Urine Clarity Clear (CLEAR) Urine pH 6.0 (5.0-9.0) Ur Specific [place] 1.010 (1.005-1.025) Urine Protein Negative (NEG/TRACE) mg/dL Urine Glucose (UA) Negative (NEGATIVE) mg/dL Assessment and Plan Assessment and Plan (1) Acute diverticulitis: (2) Diarrhea: (3) Dehydration: (4) JOSI (acute kidney injury): (5) CKD (chronic kidney disease): (6) GI bleed: (7) Blood loss anemia: (8) Anemia of chronic disease: (9) Cognitive impairment: (10) Multifactorial functional impairment: (11) Central obesity: Plan Acute diverticulitis/colitis Abdominal pain, CT finding of acute diverticulitis, diarrhea, colitis I had accepted to admit patient to the medical floor. Started her on ceftriaxone and Flagyl intravenously. IV fluid infusion Requested a stool culture and C. difficile. Recommend patient to have colonoscopy in 6 weeks to exclude luminal pathology. GI bleed, likely caused by acute colitis, diverticulitis in the setting of patient taking anticoagulant. Patient reported they are witnessing some blood in the urine. There is slight hemoglobin drop which could have been caused by IV hydration. Hold Eliquis and aspirin Check H&H every 8 hours Nursing communication: Please call or alert the hospitalist if pt 's SBP drops < 110 or Hg < 8 so hospitalist gets aggressive with IV infusion and RBC transfusion. Thank you. As needed blood transfusion Colonoscopy electively if bleed this is stable. Colonoscopy as inpatient transferring to [place] if patient continues to have bloody stool. Acute on chronic kidney failure Likely caused by volume loss. CT scan does not show any obstructive uropathy. Continue to monitor. Continue IV fluid infusion. History of cardiac dysrhythmia. Patient has a defibrillator. Patient is on Eliquis and aspirin. Due to GI bleed and hemoglobin drop I would hold Eliquis and aspirin for 24 to 48 hours. DVT prophylaxis Avoid pharmacological intervention due to above SCD. Cognitive and functional impairment Appears to be chronic Patient may have degree of dementia, probable vascular dementia. Patient likely has deconditioning secondary to aging and obesity Diabetes Continue insulin. Add sliding scale Hypothyroidism Continue Synthroid Hyperlipidemia Continue statin Chronic medical conditions not listed above, incidental findings seen on labs and imaging. These would need to be addressed. Could be addressed when time and condition are appropriate. Could be addressed in the outpatient setting by PCP collaboration with other needed outpatient providers. I discussed her case with her significant other and her granddaughter at the bedside. I provided them information about her disease, prognosis, expectation and trajectory. Answered all of their questions Urinary Catheter Management Urinary Catheter Management Straight: Cath placed during this visit: yes Urethral indwelling: No Insertion date: 03/19/25 Insertion time: 17:24
[2025-03-20 12:00] VITALS: BP 112/61; PULSE 75; TEMP 36.7; O2SAT 90
[2025-03-20 14:21] LABS: Hematocrit 24.4 % (36.0-48.0); Hemoglobin 8.1 g/dL (12.0-16.0)
[2025-03-20 16:00] VITALS: BP 133/80; PULSE 75; TEMP 37.1; O2SAT 91
[2025-03-20 20:00] VITALS: BP 109/59; PULSE 74; TEMP 36.6; O2SAT 90
[2025-03-20] MEDS: ATORVASTATIN CALCIUM 20 MG TABLET PO (21:39)
[2025-03-20 21:53] LABS: Hematocrit 24.4 % (36.0-48.0); Hemoglobin 7.9 g/dL (12.0-16.0)
[2025-03-20 23:09] VITALS: BP 124/75; PULSE 75; TEMP 36.5; O2SAT 87
[2025-03-21 04:00] VITALS: BP 120/63; PULSE 75; TEMP 36.4; O2SAT 89
[2025-03-21] MEDS: METRONIDAZOLE/SODIUM CHLORIDE 500 MG/100 ML PREMIX 100 MG IV ×3 (04:34→19:48)
[2025-03-21 06:07] LABS: Hematocrit 26.9 % (36.0-48.0); Hemoglobin 8.4 g/dL (12.0-16.0); Mean Corpuscular HGB Conc 31.2 g/dL (29.9-35.2); Mean Corpuscular Hemoglobin 31.0 pg (26.7-34.0); Mean Corpuscular Volume 99.3 fL (81.0-99.0); Platelet Count 173 10^3/uL (150-450); Red Blood Count 2.71 10^6/uL (4.20-5.40); White Blood Count 7.2 10^3/uL (4.0-11.0)
[2025-03-21 06:29] LABS: Alanine Aminotransferase 21 U/L (14-59); Albumin Globulin Ratio 0.6; Albumin Level 2.2 g/dL (3.4-5.0); Alkaline Phosphatase 111 U/L (46-116); Anion Gap 9.8; Aspartate Amino Transferase 24 U/L (15-37); Blood Urea Nitrogen 21.0 mg/dL (7.0-18.0); Calcium 8.2 mg/dL (8.5-10.1); Carbon Dioxide 28.8 mmol/L (21.0-32.0); Chloride 110 mmol/L (98-107); Estimated GFR (African America 41 (>=60 mL/min/1.73m^2); Estimated GFR (Non-African Ame 34 (>=60 mL/min/1.73m^2); Globulin 3.4 g/dL; Glucose 75 mg/dL (74-106); Potassium 3.6 mmol/L (3.5-5.1); Sodium 145 mmol/L (136-145); Total Protein 5.6 g/dL (6.4-8.2)
[2025-03-21] MEDS: LEVOTHYROXINE SODIUM 112 MCG TABLET PO (06:33)
[2025-03-21 08:00] VITALS: BP 145/72; PULSE 74; TEMP 36.8; O2SAT 90
--- NOTE | 2025-03-21 09:01 | XR_ITS ---
The [place] [id number] Patient Name: OSCAR MCLEOD MRN: [id number] date: 1940 Sex: F Assigned Patient Location: [place] Current Patient Location: [place] Accession/Order Number: [id number] Exam Date: 03/21/2025 10:13 Report Date: 03/21/2025 10:15 At the request of: WESLEY ARREDONDO MD Procedure: XR hip RT 2V w/ pelvis RIGHT HIP WITH AP PELVIS - 3 views COMPARISON: 02/15/2024 CLINICAL DATA: Right posterior hip pain for the past 2 weeks. No injury. AP view of the pelvis as well as AP and frog-lateral views of the right hip were obtained. There is osteopenia. No acute fracture or dislocation is identified. The hip joint spaces are symmetric. Mild marginal spurring is seen. Enthesophytes are present at the iliac crests and greater trochanters. There is sclerosis at the SI joints. Degenerative change is also seen at the lower imaged lumbar spine. No soft tissue abnormalities are present. XR/XR hip RT 2V w/ pelvis IMPRESSION: OSTEOPENIA AND DEGENERATIVE CHANGES. NO ACUTE BONY FINDINGS. Impression dictated by: Coco Hernandez M.D. 03/21/2025 10:15 AM Dictation Location: [place] [address] Electronically authenticated by: [id number] Y Date: 03/21/2025 10:15
--- NOTE | 2025-03-21 09:09 | PM.PN ---
Progress Note: Subjective Subjective Interval history: Patient continues to report pain in the suprapubic and right lower quadrant. She reports having pain in the right hip as well. No fall or trauma Exam Narrative Exam Narrative: [pt is awake and alert. oriented to place, time and person HEENT: [place] conjunctiva and NL buccal mucosa Neck: Supple, no tenderness Endocrine: No Thyromegaly. Vascular: No JVD or carotid bruit. Lymphatic: No cervical lymphadenopathy. Chest: CTA no DTP. Heart RRR, no extra sound or murmur. Abd: Soft, tenderness in the suprapubic and right lower quadrant Mild tenderness in the right anterior hip. LE: No cyanosis or clubbing, no varices or edema. Neuro: A A O. Nl speech, comprehension and attention. Nl and symetrical motor and tone examination through out. Some cognitive loss. Mild to moderate functional loss. Nonfocal. []] Constitutional Vital Signs, click to edit/add: Last Vital Signs Temp 98.2 F 03/21/25 08:00 Pulse 74 03/21/25 08:00 Resp 14 03/21/25 08:00 BP 145/72 H 03/21/25 08:00 Pulse Ox 90 L 03/21/25 08:00 O2 Del Method Room Air 03/21/25 08:00 Progress Note: Objective Labs Labs: Short CBC 03/20/25 03/20/25 03/21/25 Range/Units 14:02 21:48 04:57 WBC 7.2 (4.0-11.0) 10^3/uL Hgb 8.1 L 7.9 L 8.4 L (12.0-16.0) g/dL Hct 24.4 L 24.4 L 26.9 L (36.0-48.0) % Plt Count 173 (150-450) 10^3/uL BMP 03/21/25 04:57 Sodium 145 Potassium 3.6 Chloride 110 H Carbon Dioxide 28.8 BUN 21.0 H Creatinine 1.49 H Glucose 75 Calcium 8.2 L Liver Function 03/21/25 Range/Units 04:57 Total Bilirubin 0.3 (0.2-1.0) mg/dL AST 24 (15-37) U/L ALT 21 (14-59) U/L Alkaline Phosphatase 111 (46-116) U/L Albumin 2.2 L (3.4-5.0) g/dL Progress Note: A&P Assessment and Plan (1) Acute diverticulitis: (2) Diarrhea: (3) Dehydration: (4) JOSI (acute kidney injury): (5) CKD (chronic kidney disease): (6) GI bleed: (7) Blood loss anemia: (8) Anemia of chronic disease: (9) Cognitive impairment: (10) Multifactorial functional impairment: (11) Central obesity: Plan Acute diverticulitis/colitis Abdominal pain, CT finding of acute diverticulitis, diarrhea, colitis Status post appendectomy Continue intravenous antibiotic. Continue IV metronidazole. Changing ceftriaxone to oral Levaquin C. difficile is negative. The stool culture is pending Recommend patient to have colonoscopy in 6 weeks to exclude luminal pathology. Right hip pain and discomfort Requested x-ray rule out occult fracture. GI bleed, likely caused by acute colitis, diverticulitis in the setting of patient taking anticoagulant. Patient reported they are witnessing some blood in the urine. There is slight hemoglobin drop which could have been caused by IV hydration. Hold Eliquis and aspirin. Continue to hold for total of 48 hours to ensure stability of her hemoglobin Thus far, no indication for RBC transfusion. Nursing communication: Please call or alert the hospitalist if pt 's SBP drops < 110 or Hg < 8 so hospitalist gets aggressive with IV infusion and RBC transfusion. Thank you. As needed blood transfusion Colonoscopy electively if bleed this is stable. Colonoscopy as inpatient transferring to [place] if patient continues to have bloody stool. Anemia, acute on chronic Acute blood loss secondary to mild bloody diarrhea. Iron studies consistent with anemia of chronic disease, likely secondary to CKD. I started patient on iron supplementation. And erythropoietin Acute on chronic kidney failure Likely caused by volume loss. CT scan does not show any obstructive uropathy. Acute component had resolved. Kidney function is back to baseline which is consistent with stage III. Borderline stage IV. History of cardiac dysrhythmia. Patient has a defibrillator. Patient is on Eliquis and aspirin. Due to GI bleed and hemoglobin drop I would hold Eliquis and aspirin for 24 to 48 hours. DVT prophylaxis Avoid pharmacological intervention due to above SCD. Cognitive and functional impairment Appears to be chronic Patient may have degree of dementia, probable vascular dementia. Patient likely has deconditioning secondary to aging and obesity Requested PT eval and treatment Diabetes Continue insulin. Add sliding scale Continue to hold metformin for total of 48 hours post contrast. Hypothyroidism Continue Synthroid Hyperlipidemia Continue statin Chronic medical conditions not listed above, incidental findings seen on labs and imaging. These would need to be addressed. Could be addressed when time and condition are appropriate. Could be addressed in the outpatient setting by PCP collaboration with other needed outpatient providers. I discussed her case with her significant other at the bedside. I provided him information about her disease, prognosis, expectation and trajectory. Answered all of their questions Urinary Catheter Management Urinary Catheter Management Straight: Cath placed during this visit: yes Urethral indwelling: No Insertion date: 03/19/25 Insertion time: 17:24
[2025-03-21] MEDS: LIOTHYRONINE SODIUM 5 MCG TABLET 10 MCG PO (09:56)
[2025-03-21] MEDS: ISOSORBIDE MONONITRATE 60 MG TAB.ER.24H PO (09:56)
[2025-03-21] MEDS: FERROUS SULFATE 325 MG TABLET PO ×2 (09:56→21:18)
[2025-03-21] MEDS: POTASSIUM CHLORIDE 10 MEQ ER TABLET 20 MEQ PO ×2 (09:56→21:18)
[2025-03-21] MEDS: DIPHENOXYLATE HCL 2.5 MG/ATROPINE 0.025 MG TABLET 1 TAB PO ×2 (09:56→14:12)
[2025-03-21] MEDS: GABAPENTIN 100 MG CAPSULE PO ×2 (09:57→21:18)
[2025-03-21] MEDS: ACETAMINOPHEN 325 MG TABLET 650 MG PO (09:57)
[2025-03-21] MEDS: METOPROLOL SUCCINATE 100 MG TAB.ER.24H PO (09:57)
[2025-03-21] MEDS: INSULIN GLARGINE 300 UNIT/3 ML INSULN.PEN 16 UNIT SQ (09:57)
[2025-03-21] MEDS: PANTOPRAZOLE SODIUM 40 MG TABLET.DR PO ×2 (09:57→21:18)
[2025-03-21 09:59] LABS: Magnesium 1.1 mg/dL (1.8-2.4)
[2025-03-21] MEDS: 0.9 % SODIUM CHLORIDE 250 ML 10 ML IV (10:06)
[2025-03-21] MEDS: LEVOFLOXACIN IN DEXTROSE 5 % 500 MG/100 ML PREMIX 100 MG IV (10:12)
[2025-03-21 11:58] VITALS: BP 126/74; PULSE 75; TEMP 36.8; O2SAT 90
[2025-03-21] MEDS: INSULIN ASPART 300 UNIT/3 ML PEN SUBQ (12:27)
--- NOTE | 2025-03-21 15:13 | SWNOTE1 ---
SW reviewed physical therapy note and SNF is recommended. SW stopped in to speak with pt about this. Pt is hesitant at this time. She stated she has been to [facility] in past and she was there longer than she thought. She is also worried about not seeing her grand kids. Pt did ask if she could go home first and then rehab. SW let her know once she is discharged home, SW can't usually assist with getting in to a nursing facility. Pt then asked about director long term care vs rehab vs home health and how Medicare pays for those things. SW explained all the differences. SW asked if pt would like to call family to discuss. Pt would like to call her son, Bharat. SW and pt called and spoke with Bharat. He voiced he can't force her to go, but does feel she is weaker at this time and would benefit from SNF. He reassured pt it would not be halfway and just short term to get stronger, then she will return home. Pt is in agreement with this plan and they both would like her to go to [facility]. SW to reach out to [facility] to see if they have openings. SHARRI called and spoke to Nelsy and she voiced to send it over. Referral sent to [facility]. Referral included face sheet, ED note, H&P, provider notes, case management report, nursing notes, diagnostic imaging, med list, and PT notes.
--- NOTE | 2025-03-21 15:43 | SWNOTE1 ---
Correction from previous note, pt's son name is Pranav.
--- NOTE | 2025-03-21 15:43 | SWNOTE1 ---
SHARRI received message from [facility] at [facility] and they can accept. SHARRI updated nurse, physician, pt, and son. SHARRI completed HENS 7000 and took packet to the floor for the weekend. Pt can discharge to [facility] skilled once medically stable.
[2025-03-21 16:00] VITALS: BP 120/71; PULSE 75; TEMP 36.8; O2SAT 91
[2025-03-21 19:52] VITALS: BP 133/70; PULSE 75; TEMP 36.7; O2SAT 94
[2025-03-21] MEDS: ATORVASTATIN CALCIUM 20 MG TABLET PO (21:18)
[2025-03-21] MEDS: ONDANSETRON 4 MG RAPDIS TABLET SL (21:18)
[2025-03-21] MEDS: OXYCODONE HCL 5 MG TABLET PO (21:18)
[2025-03-21 23:37] VITALS: BP 127/59; PULSE 75; TEMP 36.8; O2SAT 91
[2025-03-22] VITALS (7 sets, daily range): BP systolic 105–139; BP diastolic 66–75; PULSE 75; TEMP 36.1–37.1; O2SAT 85–99
--- NOTE | 2025-03-22 01:32 | PC.NURSE ---
loose stool mixed with urine
[2025-03-22] MEDS: METRONIDAZOLE/SODIUM CHLORIDE 500 MG/100 ML PREMIX 100 MG IV (04:15)
[2025-03-22] MEDS: LEVOTHYROXINE SODIUM 112 MCG TABLET PO (05:39)
[2025-03-22 06:35] LABS: Hematocrit 28.7 % (36.0-48.0); Hemoglobin 9.0 g/dL (12.0-16.0); Mean Corpuscular HGB Conc 31.4 g/dL (29.9-35.2); Mean Corpuscular Hemoglobin 31.1 pg (26.7-34.0); Mean Corpuscular Volume 99.3 fL (81.0-99.0); Platelet Count 195 10^3/uL (150-450); Red Blood Count 2.89 10^6/uL (4.20-5.40); White Blood Count 8.6 10^3/uL (4.0-11.0)
[2025-03-22 07:00] LABS: Alanine Aminotransferase 23 U/L (14-59); Albumin Globulin Ratio 0.6; Albumin Level 2.3 g/dL (3.4-5.0); Alkaline Phosphatase 112 U/L (46-116); Anion Gap 12.6; Aspartate Amino Transferase 27 U/L (15-37); Blood Urea Nitrogen 20.0 mg/dL (7.0-18.0); Calcium 8.8 mg/dL (8.5-10.1); Carbon Dioxide 28.4 mmol/L (21.0-32.0); Chloride 109 mmol/L (98-107); Estimated GFR (African America 40 (>=60 mL/min/1.73m^2); Estimated GFR (Non-African Ame 33 (>=60 mL/min/1.73m^2); Globulin 3.6 g/dL; Glucose 138 mg/dL (74-106); Potassium 5.0 mmol/L (3.5-5.1); Sodium 145 mmol/L (136-145); Total Protein 5.9 g/dL (6.4-8.2)
[2025-03-22] MEDS: ONDANSETRON 4 MG RAPDIS TABLET SL (08:53)
--- NOTE | 2025-03-22 09:05 | P.PN_ITS ---
Progress Note: Subjective Subjective Interval history: Patient is feeling nauseous today. Patient is feeling better in terms of the abdominal pain and the diarrhea. Patient stated that her stool is forming up. No further bloody stool. Patient stated that her pain has subsided noticeably. No chest pain. No shortness of breath Exam Narrative Exam Narrative: [pt is awake and alert. oriented to place, time and person HEENT: Olds conjunctiva and NL buccal mucosa Neck: Supple, no tenderness Endocrine: No Thyromegaly. Vascular: No JVD or carotid bruit. Lymphatic: No cervical lymphadenopathy. Chest: CTA no DTP. Heart RRR, no extra sound or murmur. Abd: Soft, definitely less tenderness in the suprapubic and right lower quadrant Mild tenderness in the right anterior hip. LE: No cyanosis or clubbing, no varices or edema. Neuro: A A O. Nl speech, comprehension and attention. Nl and symetrical motor and tone examination through out. Some cognitive loss. Mild to moderate functional loss. Nonfocal. []] Constitutional Vital Signs, click to edit/add: Last Vital Signs Temp 98.7 F 03/22/25 09:03 Pulse 75 03/22/25 09:03 Resp 18 03/22/25 09:03 BP 139/74 03/22/25 09:03 Pulse Ox 94 L 03/22/25 09:03 O2 Del Method Room Air 03/22/25 09:03 Progress Note: Objective Labs Labs: Short CBC 03/22/25 Range/Units 05:44 WBC 8.6 (4.0-11.0) 10^3/uL Hgb 9.0 L (12.0-16.0) g/dL Hct 28.7 L (36.0-48.0) % Plt Count 195 (150-450) 10^3/uL BMP 03/22/25 05:44 Sodium 145 Potassium 5.0 Chloride 109 H Carbon Dioxide 28.4 BUN 20.0 H Creatinine 1.52 H Glucose 138 H Calcium 8.8 Liver Function 03/22/25 Range/Units 05:44 Total Bilirubin 0.5 (0.2-1.0) mg/dL AST 27 (15-37) U/L ALT 23 (14-59) U/L Alkaline Phosphatase 112 (46-116) U/L Albumin 2.3 L (3.4-5.0) g/dL Progress Note: A&P Assessment and Plan (1) Acute diverticulitis: (2) Diarrhea: (3) Dehydration: (4) JOSI (acute kidney injury): (5) CKD (chronic kidney disease): (6) GI bleed: (7) Blood loss anemia: (8) Anemia of chronic disease: (9) Cognitive impairment: (10) Multifactorial functional impairment: (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 Patient is feeling nauseous. Could be from metronidazole. Change antibiotic to Zosyn instead of Levaquin and metronidazole. C. difficile is negative. Stool culture is negative as well Recommend patient to have colonoscopy in 6 weeks to exclude luminal pathology. Right hip pain and discomfort Requested x-ray rule out occult fracture. X-rays negative for any fracture but positive for osteoarthritis degeneration. GI bleed, likely caused by acute colitis, diverticulitis in the setting of patient taking anticoagulant. Hemoglobin is stable. Patient and her nurse do not report any bloody stool any longer. Nursing communication: Please call or alert the hospitalist if pt 's SBP drops < 110 or Hg < 8 so hospitalist gets aggressive with IV infusion and RBC transfusion. Thank you. As needed blood transfusion Colonoscopy electively if bleed this is stable. Colonoscopy as inpatient transferring to [place] if patient continues to have bloody stool. Anemia, acute on chronic Acute blood loss secondary to mild bloody diarrhea. Iron studies consistent with anemia of chronic disease, likely secondary to CKD. I started patient on iron supplementation. Given 1 dose of erythropoietin. Recommend weekly dose of troponin to keep hemoglobin above 9. Acute on chronic kidney failure Likely caused by volume loss. CT scan does not show any obstructive uropathy. Acute component had resolved. Kidney function is back to baseline which is consistent with stage III. Borderline stage IV. History of cardiac dysrhythmia. Patient has a defibrillator. Patient is on Eliquis and aspirin. Eliquis and aspirin has been placed on hold for 48 hours. Hemoglobin is stable. No further bloody stool. Resumed aspirin and Eliquis. DVT prophylaxis Eliquis has been resumed as described above. Cognitive and functional impairment Appears to be chronic Patient may have degree of dementia, probable vascular dementia. Patient likely has deconditioning secondary to aging and obesity Requested PT eval and treatment PT OT recommended short-term skilled care. Patient will be discharged to a skilled facility when medically stable. Diabetes Continue insulin. Add sliding scale Continue to hold metformin for total of 48 hours post contrast and also due to creatinine being above 1.5 and GFR less than 30. Hypothyroidism Continue Synthroid Hyperlipidemia Continue statin Chronic medical conditions not listed above, incidental findings seen on labs and imaging. These would need to be addressed. Could be addressed when time and condition are appropriate. Could be addressed in the outpatient setting by PCP collaboration with other needed outpatient providers. I discussed her case with her significant other at the bedside. I provided him information about her disease, prognosis, expectation and trajectory. Answered all of his questions Urinary Catheter Management Urinary Catheter Management Straight: Cath placed during this visit: yes Urethral indwelling: No Insertion date: 03/19/25 Insertion time: 17:24
--- NOTE | 2025-03-22 09:48 | REH.PTDLY ---
Physical Therapy Daily Note PT Daily Note/Assess Start: 03/22/25 09:41 Freq: Status: Active Protocol: Document 03/22/25 09:41 CINTHIA (Rec: 03/22/25 09:48 CINTHIA [id number]) Physical Therapy Daily Note/Assessment Time In 09:10 Time Out 09:37 Subjective Pt nauseated this morning, held initially and then checked on patient again. Needs to use restroom. Still having nausea and diarrhea. Therapeutic Activity 11 Minutes (minutes) Therapeutic Activity 1 Units Chair Transfer Contact Guard Assist,1 Person Assist Ability Therapeutic Activity Sit to stand transfers from chair CGA. Stand pivot Comments transfer to commode CGA. Pt stood for 3 mins afterwards to get cleaned up. Cues for stand pivot back to chair. Assistance with brief to be donned. Pt performed sit to stand from chair and then reports needing to use restroom again. Pt performed a total of 6 sit to stand transfers during rx CGA. Pt needs cues every time when returning to sit to reach back for chair opposed to holding onto rollator. Pt stood for a total of 5 mins during rx. Total Therapy 11 Minutes Total Physical 1 Therapy Units Daily Note Summary Treatment is limited today due to nausea and urgency to use restroom. Worked on transfers and standing tolerance with self care, needing assistance with self care. Pt declines ambulating further distances today. Very fatigued. Pt will need rehab at [facility] to become stronger and improve stamina.
[2025-03-22] MEDS: LIOTHYRONINE SODIUM 5 MCG TABLET 10 MCG PO (10:39)
[2025-03-22] MEDS: METOPROLOL SUCCINATE 100 MG TAB.ER.24H PO (10:39)
[2025-03-22] MEDS: DIPHENOXYLATE HCL 2.5 MG/ATROPINE 0.025 MG TABLET 1 TAB PO ×3 (10:39→22:27)
[2025-03-22] MEDS: ISOSORBIDE MONONITRATE 60 MG TAB.ER.24H PO (10:39)
[2025-03-22] MEDS: APIXABAN 5 MG TABLET 2.5 MG PO ×2 (10:40→21:37)
[2025-03-22] MEDS: ASPIRIN 81 MG TAB.CHEW PO (10:40)
[2025-03-22] MEDS: PANTOPRAZOLE SODIUM 40 MG TABLET.DR PO ×2 (10:40→21:37)
[2025-03-22] MEDS: FERROUS SULFATE 325 MG TABLET PO ×2 (10:40→21:37)
[2025-03-22] MEDS: PROMETHAZINE HCL 25 MG TABLET PO ×2 (10:41→21:37)
[2025-03-22] MEDS: GABAPENTIN 100 MG CAPSULE PO ×2 (10:41→21:37)
[2025-03-22] MEDS: MAGNESIUM SULFATE IN WATER 2 GM/50 ML PREMIX IV (10:41)
[2025-03-22] MEDS: PIPERACILLIN SODIUM/TAZOBACTAM 3.375 GM in 0.9 % SODIUM CHLORIDE 50 ML IV ×2 (10:49→21:34)
[2025-03-22] MEDS: EPOETIN ALFA 4,000 UNIT/ML VIAL 4000 UNIT SUBQ (14:23)
[2025-03-22] MEDS: ATORVASTATIN CALCIUM 20 MG TABLET PO (21:37)
[2025-03-23 03:50] VITALS: BP 106/68; PULSE 76; TEMP 36.6; O2SAT 98
[2025-03-23 05:00] VITALS: O2SAT 93
[2025-03-23] MEDS: DIPHENOXYLATE HCL 2.5 MG/ATROPINE 0.025 MG TABLET 1 TAB PO (05:12)
[2025-03-23] MEDS: PROMETHAZINE HCL 25 MG TABLET PO (05:13)
[2025-03-23] MEDS: LEVOTHYROXINE SODIUM 112 MCG TABLET PO (05:13)
[2025-03-23 06:27] LABS: Hematocrit 30.1 % (36.0-48.0); Hemoglobin 9.8 g/dL (12.0-16.0); Mean Corpuscular HGB Conc 32.6 g/dL (29.9-35.2); Mean Corpuscular Hemoglobin 31.8 pg (26.7-34.0); Mean Corpuscular Volume 97.7 fL (81.0-99.0); Platelet Count 150 10^3/uL (150-450); Red Blood Count 3.08 10^6/uL (4.20-5.40); White Blood Count 9.6 10^3/uL (4.0-11.0)
[2025-03-23 06:44] LABS: Alanine Aminotransferase 81 U/L (14-59); Albumin Globulin Ratio 0.5; Albumin Level 1.9 g/dL (3.4-5.0); Alkaline Phosphatase 98 U/L (46-116); Anion Gap 14.0; Aspartate Amino Transferase 135 U/L (15-37); Blood Urea Nitrogen 22.0 mg/dL (7.0-18.0); Calcium 9.0 mg/dL (8.5-10.1); Carbon Dioxide 26.3 mmol/L (21.0-32.0); Chloride 109 mmol/L (98-107); Estimated GFR (African America 37 (>=60 mL/min/1.73m^2); Estimated GFR (Non-African Ame 30 (>=60 mL/min/1.73m^2); Globulin 3.6 g/dL; Glucose 84 mg/dL (74-106); Magnesium 1.8 mg/dL (1.8-2.4); Potassium 5.3 mmol/L (3.5-5.1); Sodium 144 mmol/L (136-145); Total Protein 5.5 g/dL (6.4-8.2)
[2025-03-23 07:48] VITALS: BP 105/67; PULSE 75; TEMP 36.9; O2SAT 94
[2025-03-23 07:49] VITALS: PULSE 75
[2025-03-23 08:44] VITALS: O2SAT 90
[2025-03-23] MEDS: PIPERACILLIN SODIUM/TAZOBACTAM 3.375 GM in 0.9 % SODIUM CHLORIDE 50 ML IV (10:00)
[2025-03-23] MEDS: ISOSORBIDE MONONITRATE 60 MG TAB.ER.24H PO (10:01)
[2025-03-23] MEDS: GABAPENTIN 100 MG CAPSULE PO (10:01)
[2025-03-23] MEDS: METOPROLOL SUCCINATE 100 MG TAB.ER.24H PO (10:01)
[2025-03-23] MEDS: ASPIRIN 81 MG TAB.CHEW PO (10:01)
[2025-03-23] MEDS: LIOTHYRONINE SODIUM 5 MCG TABLET 10 MCG PO (10:01)
[2025-03-23] MEDS: APIXABAN 5 MG TABLET 2.5 MG PO (10:02)
[2025-03-23] MEDS: PANTOPRAZOLE SODIUM 40 MG TABLET.DR PO (10:02)
[2025-03-23] MEDS: FERROUS SULFATE 325 MG TABLET PO (10:03)
--- NOTE | 2025-03-23 10:27 | PM.DS1 ---
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 Horta is an 84-year-old female who came in with abdominal pain and diarrhea and was found to have the following: Acute diverticulitis/colitis Abdominal pain, CT finding of acute diverticulitis, diarrhea, colitis Status post appendectomy Complete resolution of the abdominal tenderness. Complete resolution of the diarrhea. Complete resolution of blood in the stool. Complete resolution of nausea. C. difficile is negative. Stool culture is negative as well Recommend patient to have colonoscopy in 6 weeks to exclude luminal pathology. I instructed [place] [facility] providers to have a repeat CBC and BMP every Monday and and a follow-up appointment with [facility] GI service for colonoscopy in 4 to 6 weeks to rule out luminal pathology such as malignancy. Right hip pain and discomfort Requested x-ray rule out occult fracture. X-rays negative for any fracture but positive for osteoarthritis degeneration. GI bleed, likely caused by acute colitis, diverticulitis in the setting of patient taking anticoagulant. Hemoglobin is stable. Patient and her nurse do not report any bloody stool any longer. In fact her hemoglobin is climbing up. Colonoscopy electively if bleed this is stable. Colonoscopy as inpatient transferring to [place] if patient continues to have bloody stool. Instructed [place] [facility] providers to pay close attention to stool pattern, consistency and for the presence of blood Anemia, acute on chronic Acute blood loss secondary to mild bloody diarrhea. Iron studies consistent with anemia of chronic disease, likely secondary to CKD. I started patient on iron supplementation. Given 1 dose of erythropoietin. Recommend weekly dose of troponin to keep hemoglobin above 9. Hemoglobin now is 9.8 therefore no justification for additional erythropoietin injection. Acute on chronic kidney failure Likely caused by volume loss. CT scan does not show any obstructive uropathy. Acute component had resolved. Kidney function is back to baseline which is consistent with stage III. Borderline stage IV. History of cardiac dysrhythmia. Patient has a defibrillator. Patient is on Eliquis and aspirin. Eliquis and aspirin has been placed on hold for 48 hours. Hemoglobin is stable. No further bloody stool. Resumed aspirin and Eliquis. DVT prophylaxis Eliquis has been resumed as described above. Cognitive and functional impairment Appears to be chronic Patient may have degree of dementia, probable vascular dementia. Patient likely has deconditioning secondary to aging and obesity Requested PT eval and treatment PT OT recommended short-term skilled care. Patient will be discharged to a skilled facility when medically stable. Diabetes Continue insulin. Add sliding scale Continue to hold metformin for total of 48 hours post contrast and also due to creatinine being above 1.5 and GFR less than 30. Hypothyroidism Continue Synthroid Hyperlipidemia Continue statin Chronic medical conditions not listed above, incidental findings seen on labs and imaging. These would need to be addressed. Could be addressed when time and condition are appropriate. Could be addressed in the outpatient setting by PCP collaboration with other needed outpatient providers. Patient has multiple complex medical issues as listed above and others that are not listed. All appear to be stable. I do not have any clear or strong clinical justification to extend inpatient hospitalization. Patient however will require close and frequent monitoring as well as additional work-up, investigation and therapeutic intervention that could take place from this point on post discharge. That is to prevent relapse, decompensation, rehospitalization and other medical implications. Patient would need colonoscopy in 4 to 6 weeks to rule out colon cancer or other luminal pathology. Patient would need colonoscopy sooner if she develops recurrent episode of bloody stool and diarrhea I instructed patient to ask her primary care doctor to obtain [facility] record entirely to address abnormalities seen on labs and imaging that I have and have not addressed during this hospitalization, follow-up on pending blood work, imaging and pathology is if available and to follow-up on needed medical care in the outpatient setting. Time Spent with Patient Time attestation: Total time spent providing and/or coordinating discharge services: Exam Constitutional Vital Signs, click to edit/add: Last Vital Signs Temp 98.4 F 03/23/25 07:48 Pulse 75 03/23/25 07:49 Resp 18 03/23/25 07:49 BP 105/67 03/23/25 07:48 Pulse Ox 90 L 03/23/25 08:44 O2 Del Method Room Air 03/23/25 08:44 O2 Flow Rate 2 03/23/25 07:48 DS: Data Data Completed and Pending Labs on day of discharge: Labs from last 24 hours 03/23/25 03/22/25 03/22/25 06:03 21:19 17:25 WBC 9.6 RBC 3.08 L Hgb 9.8 L Hct 30.1 L MCV 97.7 MCH 31.8 MCHC 32.6 RDW 14.8 Plt Count 150 MPV 10.4 Sodium 144 Potassium 5.3 H Chloride 109 H Carbon Dioxide 26.3 Anion Gap 14.0 BUN 22.0 H Creatinine 1.63 H Est GFR ( Amer) 37 L Est GFR (Non-Af Amer) 30 L BUN/Creatinine Ratio 13.5 Glucose 84 Calcium 9.0 Phosphorus 3.5 Magnesium 1.8 Total Bilirubin 0.9 AST 135 H ALT 81 H Alkaline Phosphatase 98 Total Protein 5.5 L Albumin 1.9 L Globulin 3.6 Albumin/Globulin Ratio 0.5 POC Glucose 104 96 03/22/25 11:08 WBC RBC Hgb Hct MCV MCH MCHC RDW Plt Count MPV Sodium Potassium Chloride Carbon Dioxide Anion Gap BUN Creatinine Est GFR ( Amer) Est GFR (Non-Af Amer) BUN/Creatinine Ratio Glucose Calcium Phosphorus Magnesium Total Bilirubin AST ALT Alkaline Phosphatase Total Protein Albumin Globulin Albumin/Globulin Ratio POC Glucose 137 H Preliminary micro results at discharge 03/19/25 18:11 Blood Culture Result 2 - Preliminary Blood NO GROWTH AT 36-48 HOURS. FINAL TO FOLLOW. 03/19/25 18:06 Blood Culture Result 1 - Preliminary Blood NO GROWTH AT 36-48 HOURS. FINAL TO FOLLOW. Discharge Plan Discharge Disposition: Xfer SNF Condition: Fair Plan of Treatment: I may not have addressed or treated all of your medical illnesses or the abnormal blood work or imaging studies during this hospitalization. Please ask your primary care provider to obtain [facility] records entirely to follow up on all of the abnormal physical, laboratory, and imaging findings that I have not addressed. For [place] [facility] providers BMP and CBC every Monday and at the nursing facility Please make sure that the patient follows up with GI at [facility] for colonoscopy in 4 to 6 weeks. Please arrange for appointment. Please arrange for patient to follow-up with Dr. Dylon Lopez at [facility] or with one of his colleagues for colonoscopy in 4 to 6 weeks Please monitor her stool pattern, frequency, consistency and volume. Make sure there is no blood Fall risk, fall precautions. Please return back to the emergency room or seek medical attention if your symptoms worsen or return. Discharging you from [facility] does not mean that your medical care ends here and now. You may still need additional monitoring, work up, investigation, and treatment plan to be handled from this point on by out patient providers including your primary care provider and specialists. For any medication question, please contact your retail pharmacist or your primary care provider. Thank you. Discharge Medications: New acetaminophen [Tylenol] 325 mg Tablet 650 mg PO Q6H PRN (Reason: pain or fever) Qty: 0 0RF metoprolol succinate 100 mg Tablet Extended Release 24 Hr 100 mg PO DAILY Qty: 0 0RF insulin aspart U-100 [Novolog FlexPen U-100 Insulin] 100 unit/mL (3 mL) Insulin Pen 3 - 15 unit subcut ACHS Qty: 0 0RF amoxicillin-pot clavulanate 500-125 mg tablet 1 tab PO BID 12 Days Qty: 24 0RF ferrous sulfate 325 mg (65 mg iron) tablet 325 mg PO BID Qty: 60 0RF Continued albuterol sulfate 2.5 mg /3 mL (0.083 %) solution for nebulization 2.5 mg inhalation Q4H PRN (Reason: shortness of breath or wheezing) aspirin [Adult Low Dose Aspirin] 81 mg tablet,delayed release (DR/EC) 81 mg PO DAILY isosorbide mononitrate 60 mg tablet extended release 24 hr 60 mg PO DAILY levothyroxine 112 mcg tablet 112 mcg PO DAILY liothyronine 5 mcg tablet 10 mcg PO DAILY febuxostat 40 mg tablet 40 mg PO DAILY insulin glargine [Lantus U-100 Insulin] 100 unit/mL solution 16 unit subcut QAM simvastatin 40 mg tablet 40 mg PO .QHS Eliquis 5 mg Tablet 2.5 mg PO BID gabapentin 100 mg capsule 100 mg PO BID Qty: 60 0RF Changed pantoprazole [Protonix] 40 mg tablet,delayed release (DR/EC) 40 mg PO DAILY Qty: 60 11RF Held leflunomide 20 mg tablet 20 mg PO DAILY Hold Instructions: Resume on 04/13/25. Discontinued sucralfate 1 gram tablet 1 g PO ACHS metformin 500 mg tablet 500 mg PO DAILY hydralazine 50 mg Tablet 50 mg PO TID PRN (Reason: hypertension) Patient Comments: FOR SBP > 130 Rx Instructions: @0700,1500,2200 = only when blood pressure > 130 tramadol 50 mg tablet 50 mg PO BID Rx Instructions: 1-2 tabs twice daily as needed potassium chloride [Klor-Con] 20 mEq packet 20 meq PO BID Print Language: Romanian Forms: Portal Instructions Referrals: Dylon Lopez MD [Physician] Referral Note: For colonoscopy in 4 to 6-weeks
--- NOTE | 2025-03-23 10:32 | PM.EN ---
Event Note Event Note: I called her significant other mr Baptiste. I gave him update o her condition, status and tx plan. I informed him about discharge to SNF. He is very apprecitive of the care that Harman is receiving here at [place].
[2025-03-23] MEDS: INSULIN ASPART 300 UNIT/3 ML PEN SUBQ (11:45)
== END 2025-03-23 13:40 | DRG 378 ==
LOC: ER 18:01 → MS 19:37
PROVIDERS: Admitting Provider Internal Medicine; Emergency Provider Emergency Medicine; PCP Family Medicine; Visit Provider Internal Medicine
DX: K57.31 Diverticulosis of large intestine without perforation or abscess with bleeding (principal); D62 Acute posthemorrhagic anemia; N17.9 Acute kidney failure, unspecified; I50.32 Chronic diastolic (congestive) heart failure; E86.0 Dehydration; Z79.01 Long term (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; Z79.82 Long term (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 aspirin; I25.10 Atherosclerotic heart disease of native coronary artery without angina pectoris; I48.91 Unspecified atrial fibrillation; J44.9 Chronic obstructive pulmonary disease, unspecified; E03.9 Hypothyroidism, unspecified; Z95.810 Presence of automatic (implantable) cardiac defibrillator; Z90.11 Acquired absence of right breast and nipple; Z90.710 Acquired absence of both cervix and uterus; Z95.5 Presence of coronary angioplasty implant and graft; Z90.49 Acquired absence of other specified parts of digestive tract; Z87.891 Personal history of nicotine dependence; K52.9 Noninfective gastroenteritis and colitis, unspecified; E66.89 Other obesity not elsewhere classified; E11.22 Type 2 diabetes mellitus with diabetic chronic kidney disease; E06.9 Thyroiditis, unspecified; E78.5 Hyperlipidemia, unspecified; R10.31 Right lower quadrant pain; M25.551 Pain in right hip; R10.2 Pelvic and perineal pain; D63.1 Anemia in chronic kidney disease; N18.30 Chronic kidney disease, stage 3 unspecified; K92.1 Melena; M16.11 Unilateral primary osteoarthritis, right hip; F01.50 Vascular dementia, unspecified severity, without behavioral disturbance, psychotic disturbance, mood disturbance, and anxiety; Z68.27 Body mass index [BMI] 27.0-27.9, adult; Z79.84 Long term (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 oral hypoglycemic drugs; Z79.4 Long term (current) use of insulin; Z79.899 Other long term (current) drug therapy; M06.9 Rheumatoid arthritis, unspecified
CPT/HCPCS: 36415; 73502; 74176; 80048; 80053; 80076; 81001; 82150; 82728; 82948; 83540; 83550; 83690; 83735; 84100; 85014; 85018; 85025; 85027; 86850; 86900; 86901; 87040; 87045; 87046; 87427; 87493; 93005; 94761; 96361; 96365; 97162; 97530; 99285; J0696; J0885; J1836; J2543; J3475; Q0162; Q0169

== ENCOUNTER 2025-07-04 11:19 | Outpatient (OUT) | payer MEDICARE, OTHER, SELFPAY ==
--- OUTSIDE RECORDS SUMMARY | 2025-07-03 13:50 | XMS_ITS | Encounter Summary ---
Author Organization [facility] Address [address] [place] [address] Care Team Providers Care Helmet Binder Name Role Phone Gil Blake MD Primary Care Provider [phone] Reason for Visit * ReasonCommentsDM Foot Care Encounter Details DateTypeDepartmentCare Team (Latest Contact Info)Ydkrzhqpxud51/23/2025 1:50 PM EDTOffice Visit [facility] [address] [facility] [address] [place] [address] Peyman Roper, DPHoa [address] [facility] [address] [place] [address] Neoplasm of uncertain behavior of skin (Primary Dx); Diabetes mellitus due to underlying condition with diabetic polyneuropathy, 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 oysterman insulin use (HCC); Pain due to onychomycosis of toenails of both feet; Venous insufficiency; Acquired deformity of left toe Social History Tobacco UseTypesPacks/DayYears UsedDateSmoking Tobacco: FormerCigarettes Smokeless Tobacco: Never Tobacco Cessation:Counseling Given: Yes Alcohol UseStandard Drinks/WeekCommentsNever0 (1 standard drink = 0.6 oz pure alcohol)CommentsUnknownSex and Gender InformationValueDate RecordedSex Assigned at BirthNot on fileLegal PhuCldptu84/15/2023 7:38 PM EDTGender Identity Not on fileSexual OrientationNot on filedocumented as of this encounter Last Filed Vital Signs Vital SignReadingTime TakenCommentsBlood Pressure--Pulse--Temperature-- Respiratory [id number] 1:58 PM EDTOxygen Saturation--Inhaled Oxygen Concentration--Cntikn26.8 kg (145 lb)07/03/2025 1:58 PM LYKByblag808.4 cm (5') 07/03/2025 1:58 PM EDTBody Mass Index28.321 1:58 PM EDTdocumented in this encounter Progress Notes * Peyman Nair Judson, DPM - 07/03/2025 1:50 PM EDT Patient: Harman Horta : 1940 PCP: Gil Blake MD SUBJECTIVE This is a 84 y.o. female that presents today with a CC of elongated, thick nails. Pt states nails have been elongated and thick for many years and cause pain with ambulation in shoegear. Pt has tried previous treatment with minimal relief. Pt presents today for nail care and treatment. Patient is DM2 Patient also has history of venous stasis edema and does currently wear compression stockings Patient also presents today for follow up of neoplasm of skin and black lesion to her right leg that was present on prior visit with discussion of possible punch biopsy and states negative changes since prior visit Allergies: No Known Allergies Past Medical History: [...] file Food Insecurity: No Food Insecurity (09/12/2024) Received from [facility] Hunger Vital Sign Within the past 12 months, you worried that your food would run out before you got the money to buymore.: Never true Within the past 12 months, the food you bought just didn't last and you didn't have money to get more.: Never true Transportation Needs: No Transportation Needs (09/12/2024) Received from [facility] Transportation In the past 12 months, has lack of transportation kept you from medical appointments or from getting medications?: No In the past 12 months, has lack of transportation kept you from meetings, work, or from getting things needed for daily living?: No Physical Activity: Not on file Stress: Not on file Social Connections: Not on file Intimate Partner Violence: Not At Risk (09/12/2024) Received from [facility] Humiliation, Afraid, Rape, and Kick questionnaire Within the last year, have you been afraid of your partner or ex-partner?: No Within the last year, have you been humiliated or emotionally abused in other ways by your partner or ex-partner?: No Within the last year, have you been kicked, hit, slapped, or otherwise physically hurt by your partner or ex-partner?: No Within the last year, have you been raped or forced to have any kind of sexual activity by your partner or ex-partner?: No Housing Stability: Low Risk (09/12/2024) Received from [facility] Housing Stability Vital Sign In the last 12 months, was there a time when you were not able to pay the mortgage or rent on time?: No In the past 12 months, how many times have you moved where you were living?: 1 At any time in the past 12 months, were you homeless or living in a jail (including now)?: No ROS: General: denies fever, chills, fatigue, malaise [...] region. Medial right calf region has a small 0.2cmx0.2cm cm black neoplasm with diminished raised borders of unknown origin. Left anterior braun has a healed area of ulceration with negative openings VASC: Negative DP and negative PT pedal pulses NEURO: 5.07 [place] Sybil monofilament test intact to digits and forefoot bilaterally 125Hz tuning fork diminished to 1st MPJ bilaterally ORTHO: Positive pain on palpation to toenails of the left 1,2,3,4,5 toes and right 1,2,3,4,5 toes ASSESSMENT 1. Diabetes mellitus due to underlying condition with diabetic polyneuropathy, 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 oysterman insulin use (HCC) 2. Pain due to onychomycosis of toenails of both feet 3. Venous insufficiency 4. Acquired deformity of left toe 5. Neoplasm of uncertain behavior of skin PLAN Discussed proper foot care with patient today. Debride nails in length and thickness digits 1 through 10 Patient educated today on proper diabetic foot care including monitoring feet daily for any signs of infection openings in the skin or irregularities to both feet. Patient had a diabetic neurologicalexam today to both their feet and discussed proper shoe gear. Continue with compression stockings for venous stasis Pt may have biopsy in the future Peyman Roper DPM documented in this encounter Plan of Treatment DateTypeDepartmentCare Team (Latest Contact Info)Ecqkeiroshj09/22/2026 1:50 PM ESTOffice Visit [facility] [address] [facility] [address] [place] [address] Peyman Roper DPM [address] [facility] [address] [place] [address] documented as of this encounter Visit Diagnoses Diagnosis Neoplasm of uncertain behavior of skin- Primary Diabetes mellitus due to underlying condition with diabetic polyneuropathy, 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 oysterman insulin use (HCC) Pain due to onychomycosis of toenails of both feet Venous insufficiency Unspecified venous (peripheral) insufficiency Acquired deformity of left toe documented in this encounter Care Teams Team MemberRelationshipSpecialtyStart DateEnd Date Gil Blake MD [address] [place] [phone] PCP - GeneralFamily Medicine02/14/24documented as of this encounter
--- OUTSIDE RECORDS SUMMARY | 2025-07-04 11:24 | XMS_ITS | Clinical Summary ---
Author Organization [facility] Address [address] [address] Care Team Providers Care Client Service Associate Name Role Phone Gil Blake MD Primary Care Provider [phone] Allergies Active AllergyReactionsCriticalityNoted AcrvHuszscrzTifuouvhQbfxx55/03/2023 CiprofloxacinHives,BopiePlsx88/19/2018 Other reaction(s): Other: See Comments tendon issues tendon issues PpbkfwixtHkbkIdb98/15/2019 Rash & GI upset Oxycodone-ScgvbikjjmvdtPgrysUgk73/21/2013 GI upset & rash BibwtoycHqhcs12/30/2024 Medications MedicationSigDispense QuantityRefillsLast FilledStart DateEnd DateStatus albuterol 2.5 mg /3 mL (0.083 %) nebulizer solution USE 1 VIAL IN NEBULIZER 4 TIMES DAILY JMXHYO8003/26/2022ctive aspirin 81 mg EC tablet Take 81 mg by mouth.Active fish oil concentrate ([place]-3) 120-180 mg capsule Take 1,000 mg by mouth.Active furosemide (Lasix) 40 mg tablet Take 40 mg by mouth in the morning.07/16/2022ctive glimepiride (Amaryl) 4 mg tablet Take 4 mg by mouth in the morning and at bedtime.07/16/2022ctive hydrALAZINE (Apresoline) 100 mg tablet Take 100 mg by mouth if needed in the morning, at noon, and at bedtime. For SBP >69382/ctive isosorbide mononitrate ER (Imdur) 60 mg 24 hr tablet Take 60 mg by mouth in the morning.06/14/2022ctive levothyroxine (Synthroid, Levoxyl) 112 mcg tablet Take 112 mcg by mouth in the morning.07/02/2022ctive liothyronine (Cytomel) 5 mcg tablet Take 10 mcg by mouth in the morning.08/06/2022ctive metFORMIN (Glucophage) 500 mg tablet Take 500 mg by mouth in the morning and at bedtime.06/14/2022ctive metoprolol succinate XL (Toprol-XL) 200 mg 24 hr tablet Take 100 mg by mouth in the morning. Take 1/2 a tablet daily07/02/2022ctive sucralfate (Carafate) 1 gram tablet Take 1 g by mouth before breakfast, before lunch, before evening meal, and at bedtime.08/21/2022ctive anastrozole (Arimidex) 1 mg chemo tablet Take 1 mg by mouth in the morning Swallow whole with a drink of water.Active febuxostat (Uloric) 40 mg tablet Take 40 mg by mouth in the morning.Active ferrous sulfate 325 (65 Fe) MG tablet Take 325 mg by mouth two times daily.04/19/2024ctive insulin glargine (Lantus) 100 unit/mL (3 mL) injection pen 16 Units in the morning.12/11/2023ctive cholecalciferol (D3-5) 5,000 Units tablet in the morning.11/29/2022ctive pantoprazole (ProtoNix) 40 mg EC tablet Take 40 mg by mouth in the morning and at bedtime.06/27/2024ctive apixaban (Eliquis) 2.5 mg tablet Indications:Paroxysmal atrial fibrillation (CMS/HCC)Take 1 tablet (2.5 mg) by mouth two times daily. Do not start before August 19, 2024. 60 tablet 08/19/2024ctive amLODIPine (Norvasc) 10 mg tablet Take 10 mg by mouth.Active leflunomide (Arava) 20 mg tablet Take 1 tablet by mouth in the morning.01/03/2025tive predniSONE (Deltasone) 10 mg tablet Take 10 mg by mouth in the morning.Active simvastatin (Zocor) 40 mg tablet Indications:DyslipidemiaTAKE 1 TABLET BY MOUTH AT BEDTIME 90 tablet 5Active Active Problems ProblemNoted DateDiagnosed LdubHkygqugnk13/06/2024rimary biazqihxtyiv02/06/2024 LBBB (left bundle branch block)07/17/2024aroxysmal atrial fibrillation 07/17/2024Longstanding persistent atrial khuimjaeljjg18/22/2024cute combined systolic and diastolic heart gguwmpi6407/02/2024ltered mental kslsuz8306/12/2024 Edema of both lower legs06/12/2024Leg ulcer, left06/12/2024Leg wound, right 06/12/2024Open wound of left thigh06/12/2024Uses gkvdsv5806/12/2024Varicose veins of both legs with edema06/12/2024Stage 3a chronic kidney zspygos3202/14/2023M type 2 (diabetes mellitus, type 2)09/13/2022Vaginal ziqiwxzar20/03/2023Vaginal intraepithelial neoplasia III (VAIN III)09/13/2022Vulvar intraepithelial neoplasia (VIVEK) grade 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 [...] voiced understanding that this helps prevent rehospitalization forheart failure exacerbation Brain stem ndpamhn4609/13/2022reast cancer of upper-outer quadrant of right female snypvn5509/13/2022ervical disc ajejhll3709/13/2022hronic anticoagulation 09/13/2022hronic low back pain09/13/2022hronic obstructive pulmonary disease 09/13/20229044Oilvqelapxhmyn70/03/3232Bkalw22/03/2023Invasive ductal carcinoma of right mdpfik4109/13/20223639Tfzlguonmm18/03/2023seudoaneurysm of femoral artery 3Pure rfnxtbbjspqlmppahlhw90/03/2023Rectal uhkjffhx07/03/2023Stage 2 chronic kidney qceeulp8809/13/2022ostoperative state2Chronic diastolic heart ehewowv1104/19/20225408Fpowach07/08/2022HGSIL Pap smear of uvjtly1704/13/2021VAIN II (vaginal intraepithelial neoplasia grade II)10/13/2017 Overview (09/13/2022): Added automatically from request for surgery [id number] Atherosclerosis of [place] coronary artery of [place] heart without angina xozokuge76/08/2017 Assessment & Plan (05/27/2024 12:48 PM EDT): Coronary artery disease is stable, no concerning symptoms or concerns today D/W pt and granddaughter that in light of CAD s/p stent and CHF she will be a cardiology pt for therest of her life and will F/U in clinic a couple times a year and she voiced understanding. Continue GDMT- ASA, toprol, zocor, imdur and fish oil. continue risk factor modifications- heart healthy diet, regular exercise as tolerated and continue all medications. Ujzcynjzcjlx81/08/2017 Assessment & Plan (05/27/2024 12:56 PM EDT): As above S/P coronary artery stent xoryyqatt97/08/2017 Assessment & Plan (05/27/2024 12:57 PM EDT): Remains on ASA No c/o angina or concerns Moderate smoker (20 or less per day)01/16/2017Angina tjkooyya48/12/2012 Gastroesophageal reflux snhibcs2812/22/20114607Yzddxgwusmuktl49/12/2012 Assessment & Plan (05/27/2024 12:54 PM EDT): Lipid abnormalities are elevated therefore will increase zocor to 40 mg daily. Will repeat lipid level and liver function in 2-3 months Wmglshdtujghcn59/12/2012enign hypertensive cardiomyopathy with heart failure 12/22/2011 Assessment & Plan (05/27/2024 12:49 PM EDT): Hypertension currently is well-controlled at 106/67 Continue amlodipine, hydralazine, Imdur, Toprol and spironolactone Currently renal function normal, no acute concerns. Tobacco user12/22/2011 Resolved Problems ProblemNoted DateDiagnosed DateResolved DateBMI 36.0-36.9,adult09/13/2022 07/17/2024aroxysmal atrial fvxovplvakyr68 Assessment & Plan (05/27/2024 12:56 PM EDT): FEX1MH3-UZNc= 6-7 at least with Age, Sex, CHF, CAD/Vascular disease, HTN, DM Currently per assessment she appears to be in rhythm heart rate well-controlled with metoprolol 200mg daily and she remains on Eliquis anticoagulation without any bleeding tendencies or concerns. Encounters DateTypeDepartmentCare QzawFnpkzlxcwya57/02/2025 1:00 PM EDTAncillary Procedure [facility] [address] [place] [phone] Pre-operative cardiovascular examination, ICD in place06/12/2025Orders Only [facility] [address] [place] [phone] Brian Potter MD 06/12/2025Orders Only [facility] [address] [place] [phone] Brian Potter MD 06/11/2025 12:35 PM EDTAncillary Procedure [facility] [address] [place] [address] Pre-operative cardiovascular examination, ICD in place06/01/2025Refill [facility] [address] [place] [address] Zhane, Lorenza, TEST DESK TROUBLE LOCATOR Dyslipidemiafrom Last 3 Months Family History Medical HistoryRelationNameCommentsCoronary artery diseaseFatherHeart attack FatherStrokeMotherRelationNameStatusCommentsFatherDeceasedMotherDeceasedSister Social History Tobacco UseTypesPacks/DayYears UsedDateSmoking Tobacco: FormerCigarettesPassive Smoke Exposure: PastSmokeless Tobacco: Never Tobacco Cessation:Counseling Given: Not Answered Alcohol UseStandard Drinks/WeekCommentsNot Currently0 (1 standard drink = 0.6 oz pure alcohol)Humiliation, Afraid, Rape, and Kick questionnaireAnswerDate RecordedWithin the last year, have you been afraid of your partner or ex-partner?No09/12/2024Within the last year, have you been humiliated or emotionally abused in other ways by your partner or ex-partner?No09/12/2024 Within the last year, have you been kicked, hit, slapped, or otherwise physically hurt by your partner or ex-partner?No09/12/2024Within the last year, have you been raped or forced to have any kind of sexual activity by your part ner or ex-partner?No09/12/2024PHQ-2AnswerDate RecordedPatient Health Questionnaire-2 Wmsnz842TransportationAnswerDate RecordedIn the past 12 months, has lack of transportation kept you from medical appointments or from getting medications?No09/12/2024In the past 12 months, has lack of transportation kept you from meetings, work, or from getting things needed for daily living?No09/12/2024Housing Stability Vital SignAnswerDate RecordedIn the last 12 months, was there a time when you were not able to pay the mortgage or rent on time?No09/12/2024In the past 12 months, how many times have you moved where you were living?t any time in the past 12 months, were you homeless or living in a snf (including now)?No09/12/2024Hunger Vital Sign AnswerDate RecordedWithin the past 12 months, you worried that your food would run out before you got the money to buymore.Never true09/12/2024Within the past 12 months, the food you bought just didn't last and you didn't have money to get more.Never true09/12/2024CommentsNoSex and Gender InformationValueDate RecordedSex Assigned at PexulKedzwe84/08/2025 9:20 PM EDTLegal SexFemale 03/09/2022 10:03 PM EDTGender IdentityChoose not to augvsvsn72/08/2025 9:20 PM EDTSexual OrientationChoose not to ycxghcbm46/08/2025 9:20 PM EDT Last Filed Vital Signs Vital SignReadingTime TakenCommentsBlood Hbuwikew940/67001/21/2025 1:10 PM EDT Gaztl088201/21/2025 1:10 PM EDTTemperature--Respiratory Yeqr327509/12/2024 2:18 PM ESTOxygen Qrxokghrvl78%01/21/2025 1:10 PM EDTInhaled Oxygen Concentration-- Kqjxho02.1 kg (137 lb)01/21/2025 1:10 PM IKPRhhayx277.4 cm (5')01/21/2025 1:10 PM EDTBody Mass Index26.76001/21/2025 1:10 PM EDT Plan of Treatment DateTypeDepartmentCare Team (Latest Contact Info)Fafyzokadxa74/25/2025 1:15 PM ESTOffice Visit [facility] [address] [place] [address] Brian Potter MD [address] [place] [address] Health MaintenanceDue DateLast DoneCommentsDiabetes: Hemoglobin A1C1942 Medicare Annual Wellness (AWV)3Diabetes: Retinopathy Screening 3Diabetes: Urine Protein Yvutnsryw20/26/1962Pneumococcal Vaccine: 50+ Years (1 of 2 - PCV)2Adult Qivhvsg3110/06/1964Zoster Vaccines (1 of 2) 1992COVID-19 Vaccine ( - season)5110/21/2020, 11/06/2020, 10/09/2020Influenza Vaccine (#1)/, 07/01/2021, 06/10/2020, Additional history existsDepression Gawnmxxob31Fall Risk Ifwwwzlgz17HIB VaccinesAged OutNo longer eligible based on patient's age to complete this topicHPV VaccinesAged OutNo longer eligible based on patient's age to complete this topicIPV VaccinesAged OutNo longer eligible based on patient's age to complete this topicMeningococcal B VaccineAged OutNo longer eligible based on patient's age to complete this topicMeningococcal VaccineAged OutNo longer eligible based on patient's age to complete this topic Rotavirus VaccinesAged OutNo longer eligible based on patient's age to complete this topic Medical Devices ImplantedTypeAreaManufacturerDevice IdentifierShelf Expiration DateModel / Serial / LotVigilant X4 Printing Sales Representative-D Is-1/Df4/Is4 Implanted:Qty: 1 on 07/10/2024 [facility] ICD[facility]: [facility] [id number] / [id number] / [place] 4-Front S Active Fix Single Coil 59cm Implanted:Qty: 1 on 07/10/2024 [facility] [id number] / [id number] / Lead,Acuity X4,Spiral L - [id number] - [id number] Implanted:Qty: 1 on 07/10/2024 by [facility] [id number] / [id number] / Procedures Procedure NamePriorityDate/TimeAssociated DiagnosisCommentsCARDIAC DEVICE CHECK CHECK - DFTSTSZxmailr33/08/2025 12:43 PM EDT Pre-operative cardiovascular examination, ICD in place CARDIAC DEVICE CHECK CHECK - EIKMQCWldwdxx45/08/2025 12:42 PM EDT Pre-operative cardiovascular examination, ICD in place CARDIAC DEVICE CHECK - REMOTE ALERT - OFVRkcydlm33/02/2025 12:00 AM EDTCARDIAC DEVICE CHECK - REMOTE ALERT - DUOFocwsjj15/02/2025 12:00 AM EDTCARDIAC DEVICE CHECK CHECK - XJGFIZCebpsxp59/01/2025 7:58 PM EDT Pre-operative cardiovascular examination, ICD in place from Last 3 Months Results * CARDIAC DEVICE CHECK - REMOTE ALERT - ICD (06/18/2025 12:43 PM EDT) Only the most recent of3 resultswithin the time period is included. Specimen (Source)Anatomical Location / LateralityCollection Method / Volume Collection TimeReceived Time Narrative Authorizing ProviderResult TypeResult StatusBlair Evgeny MDCV IMPLANTABLE CARDIAC DEVICE PROCEDURESFinal ResultPerforming OrganizationAddressCity/State/ZIP Code Phone Number CPACS * Cardiac device check - Remote alert ICD (06/12/2025 12:00 AM EDT) Only the most recent of2 resultswithin the time period is included. Anatomical RegionLateralityModalityOtherSpecimen (Source)Anatomical Location / LateralityCollection Method / VolumeCollection TimeReceived Time06/12/2025 Narrative Authorizing ProviderResult TypeResult StatusPaul Tariq MDCV IMPLANTABLE CARDIAC DEVICE PROCEDURESFinal Result from Last 3 Months Insurance Care Teams Team MemberRelationshipSpecialtyStart DateEnd Gil Blake MD [address] [facility] [place] [address] PCP - General09/16/22
--- OUTSIDE RECORDS SUMMARY | 2025-07-04 11:24 | XMS_ITS ---
Author Organization [facility] Address [address] [place] [address] Care Team Providers Care Bond Trader Name Role Phone Gil Blake MD Primary Care Provider [phone] Active Problems ProblemNoted DateDiagnosed ZxwzMmeqblodg16/06/2024Primary qlgkarulummf50/06/2024 LBBB (left bundle branch block)4Paroxysmal atrial fibrillation 07/17/2024Longstanding persistent atrial uiuqqwwivwzr51/22/2024cute combined systolic and diastolic heart hiwqxzh1707/02/2024ltered mental rljtaq9906/12/2024 Edema of both lower legs06/12/2024Leg ulcer, left06/12/2024Leg wound, right 06/12/2024Open wound of left thigh06/12/2024Uses mnarqm4406/12/2024Varicose veins of both legs with edema06/12/2024Stage 3a chronic kidney /06/2023DM type 2 (diabetes mellitus, type 2)09/13/2022Vaginal /03/2023Vaginal intraepithelial neoplasia III (VAIN III)09/13/2022Vulvar intraepithelial neoplasia (VIVEK) grade 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 She has [facility] from [facility] and presents today with granddaughter who [...] prevent rehospitalization forheart failure exacerbation Brain stem dowgzjl1509/13/2022reast cancer of upper-outer quadrant of right female bmstlp1209/13/2022ervical disc oukyset8509/13/2022hronic anticoagulation 09/13/2022hronic low back pain09/13/2022hronic obstructive pulmonary disease 7492Vgiktefwrskekh43/03/3338Reqgo48/03/2023Invasive ductal carcinoma of right wmlidc0909/13/20227110Puopnidevu18/03/2023seudoaneurysm of femoral artery 09/13/2022ure ybhjknwucfsmqirifzov51/03/2023Rectal /03/2023Stage 2 chronic kidney vqlvxgi4809/13/2022ostoperative state2Chronic diastolic heart wbmzogi12/09/1719Baigcwn95/08/2022HGSIL Pap smear of ukjkdr5704/13/2021VAIN II (vaginal intraepithelial neoplasia grade II)10/13/2017 Overview (09/13/2022): Added automatically from request for surgery [id number] Atherosclerosis of [place] coronary artery of [place] heart without angina guhkbwub66/08/2017 Assessment & Plan (05/27/2024 12:48 PM EDT): [...] exercise as tolerated and continue all medications. Myrkrvjihzub74/08/2017 Assessment & Plan (05/27/2024 12:56 PM EDT): As above S/P coronary artery stent jqeigzrlk44/08/2017 Assessment & Plan (05/27/2024 12:57 PM EDT): Remains on ASA No c/o angina or concerns Moderate smoker (20 or less per day)01/16/2017Angina zuubrkug98/12/2012 Gastroesophageal reflux klyeonv5912/22/20117379Dyzawdiuggrmzi43/12/2012 Assessment & Plan (05/27/2024 12:54 PM EDT): Lipid abnormalities are elevated therefore will increase zocor to 40 mg daily. Will repeat lipid level and liver function in 2-3 months Uabaopmhmkqxwd71/12/2012enign hypertensive cardiomyopathy with heart failure 12/22/2011 Assessment & Plan (05/27/2024 12:49 PM EDT): Hypertension currently is well-controlled at 106/67 Continue amlodipine, hydralazine, Imdur, Toprol and spironolactone Currently renal function normal, no acute concerns. Tobacco user12/22/2011 Current Treatment and Therapy Plans No current plan information found. Past Treatment and Therapy Plans No past plan information found. Lifetime Dose Tracking * ChemicalLifetime DoseAutomatic EntryManual EntryFluoro Time17.9 minutes0 .9 minutesAir Juafd313 mGy0 jRe711 mGy Resolved Problems ProblemNoted DateDiagnosed DateResolved DateBMI 36.0-36.9,adult09/13/2022 07/17/2024aroxysmal atrial Assessment & Plan (05/27/2024 12:56 PM EDT): PEV3MI6-VBMw= 6-7 at least with Age, Sex, CHF, CAD/Vascular disease, HTN, DM Currently per assessment she appears to be in rhythm heart rate well-controlled with metoprolol 200mg daily and she remains on Eliquis anticoagulation without any bleeding tendencies or concerns.
--- OUTSIDE RECORDS SUMMARY | 2025-07-04 11:25 | XMS_ITS | Patient Health Record ---
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 Name Role Phone Rony Blake Primary Care Provider Allergies Allergen (clinical drug ingredient) Drug/Non Drug Allergy documented on EMR Reaction Allergy Type Onset Date Status bee pollen Bee Pollen Unknown Drug Allergy ActiveciprofloxacinCiproUnknownDrug AllergyActivelevofloxacinlevoFLOXacinankle painDrug AllergyActiveacetaminophen / oxycodonePercocetUnknownDrug AllergyActive cefdinirCefdinirnausea and vomitingDrug AllergyActiveSubstance with sulfonamide structure and antibacterial mechanism of action (substance)Sulfa Antibioticsrash Drug AllergyActivetramadolTramadolhallucinatingDrug AllergyActive Results Component Value Reference Range Notes UA DIP NONAUTO WO MICRO (810 02) - IN OFFICE Reviewed date:03/10/2025 09:07:23 PM Interpretation: Performing Lab: Notes/Report: COLOR light yellow CLARITYclearGLUCOSEnegBILIRUBINnegKETONEnegSPECIFIC GRAVITY1.273GDRRRqciDD8 PROTEINnegUROBILINOGENnegNITRITEnegLEUKOCYTE ESTERASEnegCOVID-19, Flu A+B IH Reviewed date:03/10/2025 09:07:23 PM Interpretation: Performing Lab: Notes/Report: COVID-FLU A-FLU B-Control+UA DIP NONAUTO WO MICRO (63069) - IN OFFICE Reviewed date:03/10/2025 09:07:23 PM Interpretation: Performing Lab: Notes/Report: COLORpale yellowCLARITYCLEARGLUCOSENEGBILIRUBINNEGKETONENEGSPECIFIC GRAVITY1.010 MTMOXFHZBN3DQSLFXFNIFEYCTJBMZFIYXSNPGIAPCHRKOHHHVHDOCDE ESTERASETRACEAMYLASE Reviewed date:03/19/2025 12:50:19 PM Interpretation: Performing Lab: Notes/Report: [facility] ,Hmlccnz1317-331 U/LPerforming Lab:see noteML - [facility] LBCBC AUTO DIFF Reviewed date:03/19/2025 12:50:19 PM Interpretation: Performing Lab: Notes/Report: [facility] ,White Blood Count8.74.0-11.0 10 3/uLRed Blood Count3.074.20-5.40 10 6/uL Hemoglobin9.812.0-16.0 g/cFPbuewpifex98.736.0-48.0 %Mean Corpuscular Bglnqc37.7 81.0-99.0 fLMean Corpuscular Yzijqagvcx78.926.7-34.0 pgMean Corpuscular HGB Conc 33.029.9-35.2 g/dLRed Cell Distribution Width13.911.0-15.0 %Platelet Rlgwz245 150-450 10 3/uLMean Platelet Pkmowy19.19.5-13.5 fLNeutrophils Percent Auto59.4 43.0-75.0 %Lymphocytes Percent Auto22.220.5-60.0 %Monocytes Percent Auto14.01.7- 12.0 %Eosinophils Percent Auto3.10.9-7.0 %Basophils Percent Auto0.50.2-2.0 % Immature Granulocytes Pct Auto0.80.0-0.5 %Neutrophils Absolute Auto5.11.4-6.5 10 3/uLLymphocytes Absolute Auto1.91.2-3.8 10 3/uLMonocytes Absolute Auto1.20.3-0.8 10 3/uLEosinophils Absolute Auto0.30.0-0.7 10 3/uLBasophils Absolute Auto0.00.0- 0.1 10 3/uLImmature Granulocytes Abs Auto0.070.00-0.03 10 3/uLPerforming Lab:see noteML - [facility] LBLIPASE Reviewed date:03/19/2025 12:50:19 PM Interpretation: Performing Lab: Notes/Report: [facility] ,Lqttnk73.016.0-77.0 U/LPerforming Lab:see noteML - [facility] LBPROF 14(COMP METB) Reviewed date:03/19/2025 12:50:19 PM Interpretation: Performing Lab: Notes/Report: [facility] ,Ygpcyv845583-218 mmol/LPotassium3.03.5-5.1 mmol/QAkvdzpyt77192-069 mmol/LCarbon Knjlyaw18.021.0-32.0 mmol/LAnion Gap14.3Jwpkgta28914-942 mg/dLBlood Urea Xwmaqufo34.07.0-18.0 mg/dLCreatinine1.800.55-1.02 mg/dLEstimated GFR ( Hobjtae41>=60 mL/min/1.73m 2Estimated GFR (Non- Ame27>=60 mL/min/1.73m 2 BUN Creatinine Ratio15.2Hjnmdxy2.18.5-10.1 mg/dLBilirubin Total0.50.2-1.0 mg/dL Aspartate Amino Gaxsugcimnc3498-67 U/LAlanine Dbnhcsusalfdjprw3832-35 U/L Alkaline Pjwraqdvnlq46224-852 U/LTotal Protein7.06.4-8.2 g/dLAlbumin Level2.9 3.4-5.0 g/dLGlobulin4.1Albumin Globulin Ratio0.7Performing Lab:see noteML - [facility] LBCBC AUTO DIFF Reviewed date:07/20/2024 03:44:42 PM Interpretation: Performing Lab: Notes/Report: [facility] ,White Blood Count8.74.0-11.0 10 3/uLRed Blood Count3.554.20-5.40 10 6/uL Shzjlikamz16.212.0-16.0 g/bDSwdsfphbya66.436.0-48.0 %Mean Corpuscular Wieufl82.9 81.0-99.0 fLMean Corpuscular Sapmyytsiz03.526.7-34.0 pgMean Corpuscular HGB Conc 32.629.9-35.2 g/dLRed Cell Distribution Width13.911.0-15.0 %Platelet Uqapv756 150-450 10 3/uLMean Platelet Volume9.49.5-13.5 fLNeutrophils Percent Auto63.1 43.0-75.0 %Lymphocytes Percent Auto24.820.5-60.0 %Monocytes Percent Auto9.41.7- 12.0 %Eosinophils Percent Auto1.50.9-7.0 %Basophils Percent Auto0.50.2-2.0 % Immature Granulocytes Pct Auto0.70.0-0.5 %Neutrophils Absolute Auto5.51.4-6.5 10 3/uLLymphocytes Absolute Auto2.21.2-3.8 10 3/uLMonocytes Absolute Auto0.80.3-0.8 10 3/uLEosinophils Absolute Auto0.10.0-0.7 10 3/uLBasophils Absolute Auto0.00.0- 0.1 10 3/uLImmature Granulocytes Abs Auto0.060.00-0.03 10 3/uLPerforming Lab:see noteML - [facility] LBPROF CHEM 8 (BAS METB) Reviewed date:07/20/2024 03:44:42 PM Interpretation: Performing Lab: Notes/Report: [facility] ,Jcsptf744904-165 mmol/LPotassium3.73.5-5.1 mmol/OKmmhsbej59122-406 mmol/LCarbon Oehnpch82.321.0-32.0 mmol/LAnion Gap13.8Eazccnc18839-649 mg/dLBlood Urea Wmlxjzzh73.07.0-18.0 mg/dLCreatinine1.680.55-1.02 mg/dLEstimated GFR ( Ytlldtp11>=60 mL/min/1.73m 2Estimated GFR (Non- Ame29>=60 mL/min/1.73m 2 BUN Creatinine Ratio16.5Blpaaks4.38.5-10.1 mg/dLPerforming Lab:see noteML - [facility] LBBlood Culture 1 Reviewed date:09/15/2024 05:13:49 PM Interpretation: Performing Lab: Notes/Report: [facility] ,Blood Culture 1See Below For Report Blood Culture 1 NG5D NO GROWTH AT 5 DAYS. Performing Lab:see noteML - [facility] LBBlood Culture 2 Reviewed date:09/15/2024 05:13:49 PM Interpretation: Performing Lab: Notes/Report: [facility] ,Blood Culture 2See Below For Report Blood Culture 2 NG5D NO GROWTH AT 5 DAYS. Performing Lab:see note - [facility] LBLACTATE or LACTIC ACID Reviewed date:09/06/2024 05:50:32 PM Interpretation: Performing Lab: Notes/Report: Y [facility] ,Lactate/Lactic Acid1.30.4-2.0 mmol/LPerforming Lab:see note - [facility] LBUS venous doppler LE BI Reviewed date:09/06/2024 05:50:32 PM Interpretation: Performing Lab: Notes/Report: Source Facility: [place] [address] Ultrasound Report Signed Patient: OSCAR HORTA MR#: [id number] : 1940 Acct:[id number] Age/Sex: 83 / F ADM Date: 09/05/24 Loc: [place] 214-[address]: Mateus Blake M.D. Ordering Physician: Mateus Blake M.D. Date of Service: 09/06/24 Procedure(s): US venous doppler LE BI Accession Number(s): [id number] cc: Mateus Blake M.D. [place] [address] Patient Name: OSCAR HORTA MRN: [id number] date: 1940 Sex: F Assigned Patient Location: MS Current Patient Location: MS Accession/Order Number: [id number] Exam Date: 09/06/2024 09:20 Report Date: 09/06/2024 [...] Signed By: 09/06/24 1003 DD/ 1000 TD/TT: Drive Away Driver:GLYCOHEMOGLOBIN A1C Reviewed date:09/23/2024 10:46:47 AM Interpretation: Performing Lab: Notes/Report: [facility] ,Glycohemoglobin A1C6.44.5-6.2 % ADA RECOMMENDED LIMIT 4.0 - 6.0 ADA THERAPEUTIC TARGET < 7.0 ACTION SUGGESTED > 7.0 Estimated Average Zdrqlmx639Mswwneayey Lab:see noteML - [facility] LB CT lumbar spine wo con Reviewed date:03/10/2025 09:07:23 PM Interpretation: Performing Lab: Notes/Report: Source Facility: [place] [address] CT Scan Report Signed Patient: OSCAR HORTA MR#: [id number] : 1940 Acct:[id number] Age/Sex: 84 / F ADM Date: 03/10/25 Loc: OSEI Attending Dr: Kassandra Thomas NP Ordering Physician: Kassandra Thomas NP Date of Service: 03/10/25 Procedure(s): CT lumbar spine wo con Accession Number(s): [id number] cc: Mateus Blake M.D. [place] [address] Patient Name: OSCAR HORTA MRN: [id number] date: 1940 Sex: F Assigned Patient Location: [facility] Current Patient Location: RAD Accession/Order Number: [id number] Exam Date: 03/10/2025 13:07 Report Date: 03/10/2025 [...] noted. Impression dictated by: Butch Quinones Jr., D.OMedardo 03/10/2025 1:13 PM Dictation Location: [place] [address] Electronically authenticated by: [id number] Y Date: 03/10/2025 13:13 Dictated By: Butch Quinones M.D. Signed By: 03/10/25 1315 DD/ 1313 TD/TT: Drive Away Driver:XR lumbar spine 6V w bending Reviewed date:03/10/2025 09:07:23 PM Interpretation: Performing Lab: Notes/Report: Source Facility: [place] [address] [place] [address] XRay Report Signed Patient: OSCAR HORTA MR#: [id number] : 1940 Acct:[id number] Age/Sex: 84 / F ADM Date: 03/10/25 Loc: RAD Attending Dr: Kassandra Thomas NP Ordering Physician: Kassandra Thomas NP Date of Service: 03/10/25 Procedure(s): XR lumbar spine 6V w bending Accession Number(s): [id number] cc: Kassandra Thomas NP; Mateus Blake M.D. [place] [address] Patient Name: OSCAR HORTA MRN: [id number] date: 1940 Sex: F Assigned Patient Location: [facility] Current Patient Location: [facility] Accession/Order Number: [id number] Exam Date: 03/10/2025 13:42 Report Date: 03/10/2025 [...] Jr., D.O. 03/10/2025 1:46 PM Dictation Location: [place] [address] Electronically authenticated by: [id number] Y Date: 03/10/2025 13:46 Dictated By: Butch Quinones M.D. Signed By: 03/10/25 1349 DD/ 1346 TD/TT: Drive Away Driver:CBC AUTO DIFF Reviewed date:03/19/2025 06:23:50 PM Interpretation: Performing Lab: Notes/Report: [facility] ,White Blood Count8.44.0-11.0 10 3/uLRed Blood Count3.184.20-5.40 10 6/uL Peytppcdmi26.112.0-16.0 g/uMDyucjqltwc54.436.0-48.0 %Mean Corpuscular Achbyy96.6 81.0-99.0 fLMean Corpuscular Jhhzfhdxpz16.826.7-34.0 pgMean Corpuscular HGB Conc 33.229.9-35.2 g/dLRed Cell Distribution Width13.911.0-15.0 %Platelet Uomts642 150-450 10 3/uLMean Platelet Volume9.69.5-13.5 fLNeutrophils Percent Auto56.8 43.0-75.0 %Lymphocytes Percent Auto22.720.5-60.0 %Monocytes Percent Auto15.71.7- 12.0 %Eosinophils Percent Auto3.40.9-7.0 %Basophils Percent Auto0.70.2-2.0 % Immature Granulocytes Pct Auto0.70.0-0.5 %Neutrophils Absolute Auto4.81.4-6.5 10 3/uLLymphocytes Absolute Auto1.91.2-3.8 10 3/uLMonocytes Absolute Auto1.30.3-0.8 10 3/uLEosinophils Absolute Auto0.30.0-0.7 10 3/uLBasophils Absolute Auto0.10.0- 0.1 10 3/uLImmature Granulocytes Abs Auto0.060.00-0.03 10 3/uLPerforming Lab:see noteML - [facility] LBIRON AND TIBC Reviewed date:03/20/2025 06:20:42 PM Interpretation: Performing Lab: Notes/Report: Comment Add to an already drawn sample [facility] ,Iron55.050.0-170.0 ug/dLTotal Iron Binding Lylirnkl719.0250.0-450.0 ug/dL Percent Iron Mbllkgrirf70.1Performing Lab:see noteML - [facility] LB CBC AUTO DIFF Reviewed date:09/23/2024 10:46:47 AM Interpretation: Performing Lab: Notes/Report: [facility] ,White Blood Count7.34.0-11.0 10 3/uLRed Blood Count3.414.20-5.40 10 6/uL Yedrpcafed73.312.0-16.0 g/nSIqjpzwhsxw38.236.0-48.0 %Mean Corpuscular Kaqsvu69.4 81.0-99.0 fLMean Corpuscular Ytznwfkens30.226.7-34.0 pgMean Corpuscular HGB Conc 32.029.9-35.2 g/dLRed Cell Distribution Width14.811.0-15.0 %Platelet Qiaao352 150-450 10 3/uLMean Platelet Volume8.99.5-13.5 fLNeutrophils Percent Auto56.7 43.0-75.0 %Lymphocytes Percent Auto27.920.5-60.0 %Monocytes Percent Auto8.51.7- 12.0 %Eosinophils Percent Auto6.00.9-7.0 %Basophils Percent Auto0.50.2-2.0 % Immature Granulocytes Pct Auto0.40.0-0.5 %Neutrophils Absolute Auto4.21.4-6.5 10 3/uLLymphocytes Absolute Auto2.01.2-3.8 10 3/uLMonocytes Absolute Auto0.60.3-0.8 10 3/uLEosinophils Absolute Auto0.40.0-0.7 10 3/uLBasophils Absolute Auto0.00.0- 0.1 10 3/uLImmature Granulocytes Abs Auto0.030.00-0.03 10 3/uLPerforming Lab:see noteML - [facility] LBPROF CHEM 8 (BAS METB) Reviewed date:03/19/2025 06:23:50 PM Interpretation: Performing Lab: Notes/Report: [facility] ,Qndgfs155222-392 mmol/LPotassium3.03.5-5.1 mmol/MLufftprd08986-567 mmol/LCarbon Xrrlsef31.821.0-32.0 mmol/LAnion Gap16.3Mevwjao78885-395 mg/dLBlood Urea Noodpedu62.07.0-18.0 mg/dLCreatinine2.020.55-1.02 mg/dLEstimated GFR ( Xypgljh23>=60 mL/min/1.73m 2Estimated GFR (Non- Ame24>=60 mL/min/1.73m 2 BUN Creatinine Ratio14.4Axuoczu1.38.5-10.1 mg/dLPerforming Lab:see noteML - [facility] LBUA RANDOM W or MICROSCOPIC Reviewed date:03/19/2025 06:23:50 PM Interpretation: Performing Lab: Notes/Report: SOURCE: [facility] ,Color UrineLT. YELLOWYELLOWClarity UrineCLEARCLEARSpecific [place] Urine1.010 1.005-1.025pH Urine6.05.0-9.0Protein UrineNEGATIVENEG/TRACE mg/dLGlucose Urine UANEGATIVENEGATIVE mg/dLBilirubin UrineNEGATIVENEGATIVEKetones UrineNEGATIVE NEGATIVE mg/dLBlood UrineNEGATIVENEGATIVENitrite UrineNEGATIVENEGATIVE Urobilinogen Urine0.20.2-1.0 EU/dLLeukocyte Esterase UrineNEGATIVENEGATIVEWBC Urine0-2NONE SEEN #/HPFRBC Urine0-20-2 #/HPFBacteria UrineTRACENONE SEEN #/HPF Mucus UrineNONE SEENNONE SEENSquamous Epithelial Cell UrineFEWNONE/RARE #/LPF Transitional Epi Cells UrineRARENONE SEEN #/LPFCrystals Seen?None SeenNone Seen #/HPFCast Seen?NONE SEENNONE SEEN #/LPFUrine Culture IndicatedNOPerforming Lab: [facility] LBBlood Culture 1 Reviewed date:03/25/2025 05:05:47 PM Interpretation: Performing Lab: Notes/Report: LEFT AC - AEROBIC ONLY [facility] ,Blood Culture 1See Below For Report Blood Culture 1 NG5D NO GROWTH AT 5 DAYS.^NO GROWTH AT 5 DAYS. Performing Lab:[facility] LBBlood Culture 2 Reviewed date:03/25/2025 05:05:47 PM Interpretation: Performing Lab: Notes/Report: LEFT WRIST - PEDS [facility] ,Blood Culture 2See Below For Report Blood Culture 2 NG5D NO GROWTH AT 5 DAYS.^NO GROWTH AT 5 DAYS. Performing Lab:[facility]Prem[facility] LBE coli Shiga Toxin EIA Reviewed date:03/23/2025 03:38:42 PM Interpretation: Performing Lab: Notes/Report: [facility] ,E coli Shiga Toxin EIASee Below For Report E coli Shiga Toxin EIA E coli Shiga Toxin EIANegative E coli Shiga Toxin EIA E coli Shiga Toxin EIAPerformed at: - [facility] [place] E coli Shiga Toxin EIA E coli Shiga Toxin [id number] [place], [place] [id number] E coli Shiga Toxin EIA E coli Shiga Toxin EIALab Director: Esteban Martinez PhD, Phone: [phone] E coli Shiga Toxin EIA Performing Lab:see note LC - [facility] LB SEE REPORT - Merchant Banker Id information not found for OBX-specific stock clipper legend Troponin I High Sensitivity Reviewed date:09/06/2024 05:50:32 PM Interpretation: Performing Lab: Notes/Report: [facility] ,Troponin I High Mvswebnerap50.24.0-51.3 pg/mL CUT-OFF POINTS HAVE BEEN ESTABLISHED BASED ON THE FOURTH UNIVERSAL DEFINITION OF MYOCARDIAL INFARCTION. THE UPPER REFERENCE LIMIT (URL) OF TROPONIN, DEFINED THE 99TH PERCENTILE OF cTnI DISTRIBUTION IN A REFERENCE POPULATION, HAS BEEN CONFIRMED THE DECISION THRESHOLD FOR DC DIAGNOSIS. 99TH PERCENTILE = 51.4 PG/ML NOTE: HIGH-SENSITIVITY TROPONIN ASSAY IS NOT INTENDED TO BE USED IN ISOLATION BUT SHOULD BE INTERPRETED IN CONJUNCTION WITH OTHER DIAGNOSTIC AND CLINICAL INFORMATION. Performing Lab:see noteML - [facility] LBCampylobacter Culture Reviewed date:03/25/2025 05:05:47 PM Interpretation: Performing Lab: Notes/Report: [facility] ,Campylobacter CultureSee Below For Report Campylobacter Culture No Campylobacter species isolated. Performing Lab:see noteLC - [facility] LBECG 12 lead Reviewed date:03/20/2025 06:20:42 PM Interpretation: Performing Lab: Notes/Report: Source Facility: [facility] [place] [address] [place] [address] Electrocardiograph Report Signed Patient: OSCAR HORTA MR#: [id number] : 1940 Acct:[id number] Age/Sex: 84 / F ADM Date: 03/19/25 Loc: [place] 217-[address]: Marly Arredondo M.D. Ordering Physician: Juliet German M.D. 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 Signed By: 03/20/25 1036 DD/ 1528 TD/TT: Drive Away Driver:CT abdomen pelvis wo con Reviewed date:03/19/2025 06:23:50 PM Interpretation: Performing Lab: Notes/Report: Source Facility: [place] [address] CT Scan Report Signed Patient: OSCAR HORTA MR#: [id number] : 1940 Acct:[id number] Age/Sex: 84 / F ADM Date: 03/19/25 Loc: ER Attending Dr: Ordering Physician: Juliet German M.D. Date of Service: 03/19/25 Procedure(s): CT abdomen pelvis wo con Accession Number(s): [id number] cc: Mateus Blake M.D. [place] [address] Patient Name: OSCAR HORTA MRN: [id number] date: 1940 Sex: F Assigned Patient Location: ER Current Patient Location: ER Accession/Order Number: [id number] Exam Date: 03/19/2025 17:07 Report Date: 03/19/2025 17:14 At the request of: JULIET GERMAN MD Procedure: CT abdomen pelvis wo con CT ABDOMEN AND PELVIS WITHOUT INTRAVENOUS CONTRAST: CLINICAL HISTORY: Right lower quadrant abdominal COMPARISON: None TECHNIQUE: Spiral images were obtained through the abdomen and pelvis without intravenous contrast. This CT exam was performed using one or more following dose reduction techniques: Automated exposure control, adjustment of the mA and/or kV according to patient size, or use of iterative reconstruction technique. FINDINGS: Lung Bases: [Cardiomegaly. Minor left lung subsegmental atelectasis and or scarring.] Organs:Gallstones within a contracted gallbladder. Otherwise the liver, spleen, adrenals, left kidney unremarkable. Right renal cyst. Right renal calculi, nonobstructive. No hydronephrosis.[ GI: Mild to moderate retained stool throughout the colon. No bowel obstruction. Mild scattered colonic diverticulosis. Involving sigmoid colon, best seen on this coronal images, 40 there is questionable minimal surrounding haziness The appendix is not identified. There are no pericecal inflammatory changes.[ Pelvis:[Bladder unremarkable. Uterus absent. No adnexal mass.] Peritoneum/Retroperitoneum:Moderate severe plaque involving the nonaneurysmal abdominal aorta. Moderate plaque involving the mesenteric vessels.[No free air or free fluid. Abd wall/Bones:Osteopenia. Multilevel degenerative change.[ CT/CT abdomen pelvis wo con IMPRESSION: Question minimal pericolic haziness involving the sigmoid colon best seen on the coronal images. This may raise possibility for underlying acute diverticulitis. Recommend follow-up following medical course to document resolution. Punctate right-sided nephrolithiasis, nonobstructive. No hydronephrosis or obstructive uropathy. Cholelithiasis. Impression dictated by: Duong Nowak M.D. 03/19/2025 5:14 PM Dictation Location: [place] [address] Electronically authenticated by: [id number] Y Date: 03/19/2025 17:14 Dictated By: Duong Nowak M.D. Signed By: 03/19/251715 DD/ 13 TD/TT: Drive Away Driver:PROF Resendez(COMP METB) Reviewed date:09/06/2024 05:50:32 PM Interpretation: Performing Lab: Notes/Report: [facility] ,Pvvtnx034081-023 mmol/LPotassium4.23.5-5.1 mmol/HYtuakplm66974-370 mmol/LCarbon Qrhliaw88.121.0-32.0 mmol/LAnion Gap14.8Qdnzpql6101-099 mg/dLBlood Urea Jtydfwzr35.07.0-18.0 mg/dLCreatinine1.940.55-1.02 mg/dLEstimated GFR ( Khtveeh38>=60 mL/min/1.73m 2Estimated GFR (Non- Ame25>=60 mL/min/1.73m 2 BUN Creatinine Ratio17.1Pkczkrp6.88.5-10.1 mg/dLBilirubin Total0.60.2-1.0 mg/dL Aspartate Amino Gwobognhxiw2919-48 U/LAlanine Xdouqvmsgduvwqvd204-40 U/LAlkaline Hpzjhdxsumi8255-585 U/LTotal Protein6.36.4-8.2 g/dLAlbumin Level2.43.4-5.0 g/dL Globulin3.9Albumin Globulin Ratio0.6Performing Lab:see noteML - [facility] LBHEMOGRAM AND PLATEL Reviewed date:03/20/2025 06:20:42 PM Interpretation: Performing Lab: Notes/Report: [facility] ,Hemoglobin8.112.0-16.0 g/oQVycfyffexo37.436.0-48.0 %Performing Lab:see note - [facility] LBLIPASE Reviewed date:03/20/2025 06:20:42 PM Interpretation: Performing Lab: Notes/Report: [facility] ,Tljcov61.016.0-77.0 U/LPerforming Lab:see note - [facility] LBPROF 14(COMP METB) Reviewed date:03/20/2025 06:20:42 PM Interpretation: Performing Lab: Notes/Report: [facility] ,Cavkmp034115-331 mmol/LPotassium2.93.5-5.1 mmol/L RESULTS CALLED TO JAMES SIGALA RN @BY Crystal Hatfield at 0613 Fkweyoix62376-140 mmol/LCarbon Lrszwht38.021.0-32.0 mmol/LAnion Gap10.9Glucose 17509-212 mg/dLBlood Urea Hzwoigmi11.07.0-18.0 mg/dLCreatinine2.070.55-1.02 mg/dLEstimated GFR ( Zbwjrwr90>=60 mL/min/1.73m 2Estimated GFR (Non- Ame23>=60 mL/min/1.73m 2BUN Creatinine Ratio15.1Rgazmfi7.58.5-10.1 mg/dL Bilirubin Total0.30.2-1.0 mg/dLAspartate Amino Ezbompzzrfo3721-90 U/LAlanine Qewpkfhlbpjdnmru7234-14 U/LAlkaline Ukxcuohdmnb2826-611 U/LTotal Protein5.86.4- 8.2 g/dLAlbumin Level2.23.4-5.0 g/dLGlobulin3.6Albumin Globulin Ratio0.6 Performing Lab:see note - [facility] LBCBC no Diff (Hemogram) Reviewed date:03/20/2025 06:20:42 PM Interpretation: Performing Lab: Notes/Report: [facility] ,White Blood Count6.54.0-11.0 10 3/uLRed Blood Count2.674.20-5.40 10 6/uL Hemoglobin8.312.0-16.0 g/qIHtiqhntmhu72.536.0-48.0 %Mean Corpuscular Qsbehw84.5 81.0-99.0 fLMean Corpuscular Kwnxsywwlm11.126.7-34.0 pgMean Corpuscular HGB Conc 32.529.9-35.2 g/dLRed Cell Distribution Width14.011.0-15.0 %Platelet Uwkru591 150-450 10 3/uLMean Platelet Volume9.79.5-13.5 fLPerforming Lab:see note - [facility] LBType and Screen Reviewed date:03/20/2025 06:20:42 PM Interpretation: Performing Lab: Notes/Report: [facility] ,Blood TypeA PositiveAntibody ScreenNEGATIVEHEMOGRAM AND PLATEL Reviewed date:03/21/2025 01:03:12 PM Interpretation: Performing Lab: Notes/Report: [facility] ,Hemoglobin7.912.0-16.0 g/fZOgunswndnz42.436.0-48.0 %Performing Lab:see note - [facility] LBMAGNESIUM Reviewed date:03/21/2025 01:03:12 PM Interpretation: Performing Lab: Notes/Report: Comment Add to an already drawn sample [facility] ,Magnesium1.11.8-2.4 mg/dLPerforming Lab:see [facility] LB PROF 14(COMP METB) Reviewed date:03/21/2025 01:03:12 PM Interpretation: Performing Lab: Notes/Report: [facility] ,Vxtipt003206-462 mmol/LPotassium3.63.5-5.1 mmol/EWgdvbgzr82878-249 mmol/LCarbon Pgwcouj94.821.0-32.0 mmol/LAnion Gap9.3Nzdrucd4485-431 mg/dLBlood Urea Nitrogen 21.07.0-18.0 mg/dLCreatinine1.490.55-1.02 mg/dLEstimated GFR ( Vaubxhe16 >=60 mL/min/1.73m 2Estimated GFR (Non- Ame34>=60 mL/min/1.73m 2BUN Creatinine Ratio14.7Klzshvs0.28.5-10.1 mg/dLBilirubin Total0.30.2-1.0 mg/dL Aspartate Amino Xsmoummtzna8671-15 U/LAlanine Ksdscvtmyvsbyjct7327-02 U/L Alkaline Cftsddtodcb52823-659 U/LTotal Protein5.66.4-8.2 g/dLAlbumin Level2.2 3.4-5.0 g/dLGlobulin3.4Albumin Globulin Ratio0.6Performing Lab:see note - [facility] LBCBC no Diff (Hemogram) Reviewed date:03/21/2025 01:03:12 PM Interpretation: Performing Lab: Notes/Report: [facility] ,White Blood Count7.24.0-11.0 10 3/uLRed Blood Count2.714.20-5.40 10 6/uL Hemoglobin8.412.0-16.0 g/sYZsdhtlqjsj60.936.0-48.0 %Mean Corpuscular Wjafli60.3 81.0-99.0 fLMean Corpuscular Fhhgpsoftm57.026.7-34.0 pgMean Corpuscular HGB Conc 31.229.9-35.2 g/dLRed Cell Distribution Width14.411.0-15.0 %Platelet Ywjox397 150-450 10 3/uLMean Platelet Obcvzm27.19.5-13.5 fLPerforming Lab:see note - [facility] LBXR hip RT 2V w/ pelvis Reviewed date:03/21/2025 01:03:12 PM Interpretation: Performing Lab: Notes/Report: Source Facility: [facility]-[address] [place] [address] [place] [address] XRay Report Signed Patient: OSCAR HORTA MR#: [id number] : 1940 Acct:[id number] Age/Sex: 84 / F ADM Date: 03/19/25 Loc: MS 217-[address]: Marly Arredondo M.D. Ordering Physician: Marly Arredondo M.D. Date of Service: 03/21/25 Procedure(s): XR hip RT 2V w/ pelvis Accession Number(s): [id number] cc: Mateus Blake M.D.; Marly Arredondo M.D. [place] [address] Patient Name: OSCAR HORTA MRN: [id number] date: 1940 Sex: F Assigned Patient Location: ND Current Patient Location: [place] Accession/Order Number: [id number] Exam Date: 03/21/2025 10:13 Report Date: 03/21/2025 10:15 At the request of: MARLY ARREDONDO MD Procedure: XR hip RT 2V w/ pelvis RIGHT HIP WITH AP PELVIS - 3 views COMPARISON: 02/15/2024 CLINICAL DATA: Right posterior hip pain for the past 2 weeks. No injury. AP view of the pelvis as well as AP and frog-lateral views of the right hip were obtained. There is osteopenia. No acute fracture or dislocation is identified. The hip joint spaces are symmetric. Mild marginal spurring is seen. Enthesophytes are present at the iliac crests and greater trochanters. There is sclerosis at the SI joints. Degenerative change is also seen at the lower imaged lumbar spine. No soft tissue abnormalities are present. XR/XR hip RT 2V w/ pelvis IMPRESSION: OSTEOPENIA AND DEGENERATIVE CHANGES. NO ACUTE BONY FINDINGS. Impression dictated by: Coco Hernandez M.D. 03/21/2025 10:15 AM Dictation Location: [place] [address] Electronically authenticated by: [id number] Y Date: 03/21/2025 10:15 Dictated By: Coco Hernandez M.D. Signed By: 03/21/25 1018 DD/ 1015 TD/TT: Drive Away Driver:PROF Resendez(COMP METB) Reviewed date:03/23/2025 03:38:42 PM Interpretation: Performing Lab: Notes/Report: [facility] ,Dxloyh379724-847 mmol/LPotassium5.03.5-5.1 mmol/CUahoofcz25186-530 mmol/LCarbon Gzfyucq54.421.0-32.0 mmol/LAnion Gap12.9Sswtbkd35028-824 mg/dLBlood Urea Xnkvbbcs01.07.0-18.0 mg/dLCreatinine1.520.55-1.02 mg/dLEstimated GFR ( Tpatzbt92>=60 mL/min/1.73m 2Estimated GFR (Non- Ame33>=60 mL/min/1.73m 2 BUN Creatinine Ratio13.1Ejyuglh5.88.5-10.1 mg/dLBilirubin Total0.50.2-1.0 mg/dL Aspartate Amino Aharflmwnzj6730-63 U/LAlanine Qqhffdracqlxgulk4321-54 U/L Alkaline Ucygocibonu86107-903 U/LTotal Protein5.96.4-8.2 g/dLAlbumin Level2.3 3.4-5.0 g/dLGlobulin3.6Albumin Globulin Ratio0.6Performing Lab:see noteML - [facility] LBMAGNESIUM Reviewed date:09/06/2024 05:50:32 PM Interpretation: Performing Lab: Notes/Report: [facility] ,Magnesium1.01.8-2.4 mg/dLPerforming Lab:see noteML - [facility] LB MAGNESIUM Reviewed date:03/23/2025 03:38:42 PM Interpretation: Performing Lab: Notes/Report: [facility] ,Magnesium1.81.8-2.4 mg/dLPerforming Lab:see noteML - [facility] LB PHOSPHORUS Reviewed date:03/23/2025 03:38:42 PM Interpretation: Performing Lab: Notes/Report: [facility] ,Phosphorus3.52.6-4.7 mg/dLPerforming Lab:see noteML - [facility] LB PROF 14(COMP METB) Reviewed date:03/23/2025 03:38:42 PM Interpretation: Performing Lab: Notes/Report: [facility] ,Rpbgko128872-356 mmol/LPotassium5.33.5-5.1 mmol/HNufhrqwe38664-436 mmol/LCarbon Olmcjhf30.321.0-32.0 mmol/LAnion Gap14.7Hebnzlc3788-839 mg/dLBlood Urea Mkpnvanj71.07.0-18.0 mg/dLCreatinine1.630.55-1.02 mg/dLEstimated GFR ( Wtjsbhh92>=60 mL/min/1.73m 2Estimated GFR (Non- Ame30>=60 mL/min/1.73m 2 BUN Creatinine Ratio13.7Tmkgtma5.08.5-10.1 mg/dLBilirubin Total0.90.2-1.0 mg/dL Aspartate Amino Vujrorzlhwp40199-33 U/LAlanine Ymwcldvttgomglwa3106-50 U/L Alkaline Hlbevecpkab3730-316 U/LTotal Protein5.56.4-8.2 g/dLAlbumin Level1.93.4- 5.0 g/dLGlobulin3.6Albumin Globulin Ratio0.5Performing Lab:see noteML - [facility] no Diff (Hemogram) Reviewed date:03/23/2025 03:38:42 PM Interpretation: Performing Lab: Notes/Report: [facility] ,White Blood Count9.64.0-11.0 10 3/uLRed Blood Count3.084.20-5.40 10 6/uL Hemoglobin9.812.0-16.0 g/gRNhniaxbfmb12.136.0-48.0 %Mean Corpuscular Wcphub36.7 81.0-99.0 fLMean Corpuscular Pfbbmiqtxz41.826.7-34.0 pgMean Corpuscular HGB Conc 32.629.9-35.2 g/dLRed Cell Distribution Width14.811.0-15.0 %Platelet Ufppr058 150-450 10 3/uLMean Platelet Qceosr14.49.5-13.5 fLPerforming Lab:see noteML - [facility] LBCB AUTO DIFF Reviewed date:09/06/2024 05:50:32 PM Interpretation: Performing Lab: Notes/Report: [facility] ,White Blood Count9.94.0-11.0 10 3/uLRed Blood Count3.054.20-5.40 10 6/uL Hemoglobin9.412.0-16.0 g/rPVcmbaozyym86.836.0-48.0 %Mean Corpuscular Rottge88.4 81.0-99.0 fLMean Corpuscular Rgjtieswkh07.826.7-34.0 pgMean Corpuscular HGB Conc 32.629.9-35.2 g/dLRed Cell Distribution Width14.711.0-15.0 %Platelet Lrrdd169 150-450 10 3/uLMean Platelet Volume9.59.5-13.5 fLNeutrophils Percent Auto69.9 43.0-75.0 %Lymphocytes Percent Auto18.120.5-60.0 %Monocytes Percent Auto10.41.7- 12.0 %Eosinophils Percent Auto0.70.9-7.0 %Basophils Percent Auto0.30.2-2.0 % Immature Granulocytes Pct Auto0.60.0-0.5 %Neutrophils Absolute Auto6.91.4-6.5 10 3/uLLymphocytes Absolute Auto1.81.2-3.8 10 3/uLMonocytes Absolute Auto1.00.3- 0.8 10 3/uLEosinophils Absolute Auto0.10.0-0.7 10 3/uLBasophils Absolute Auto0.0 0.0-0.1 10 3/uLImmature Granulocytes Abs Auto0.060.00-0.03 10 3/uLPerforming Lab:see noteML - [facility] LBUS venous doppler UE RT Reviewed date:09/05/2024 07:46:10 PM Interpretation: Performing Lab: Notes/Report: Source Facility: [facility] [place] [address] [place] [address] Ultrasound Report Signed Patient: OSCAR HORTA MR#: [id number] : 1940 Acct:[id number] Age/Sex: 83 / F ADM Date: 09/05/24 Loc: ER Attending Dr: Ordering Physician: Margie Tellez Date of Service: 09/05/24 Procedure(s): US venous doppler UE LT Accession Number(s): [id number] cc: Mateus Blake M.D.; Margie Tellez [place] [address] Patient Name: OSCAR HORTA MRN: [id number] date: 1940 Sex: F Assigned Patient Location: ER Current Patient Location: ER Accession/Order Number: [id number] Exam Date: 09/05/2024 17:50 Report Date: 09/05/2024 [...] M.D. Signed By: 09/05/241835 DD/ 33 TD/TT: Drive Away Driver:RICHARD paris 1V Reviewed date:09/05/2024 05:59:46 PM Interpretation: Performing Lab: Notes/Report: Source Facility: [place] [address] [place] [address] XRay Report Signed Patient: OSCAR HORTA MR#: [id number] : 1940 Acct:[id number] Age/Sex: 83 / F ADM Date: 09/05/24 Loc: ER Attending Dr: Ordering Physician: Margie Tellez Date of Service: 09/05/24 Procedure(s): XR chest 1V Accession Number(s): [id number] cc: Mateus Blake M.D.; Margie Tellez [place] [address] Patient Name: OSCAR HORTA MRN: [id number] date: 1940 Sex: F Assigned Patient Location: ER Current Patient Location: ED.MAIN Accession/Order Number: [id number] Exam Date: 09/05/2024 17:05 Report Date: 09/05/2024 [...] M.D. Signed By: 09/05/241753 DD/ 51 TD/TT: Drive Away Driver:ECG 12 lead Reviewed date:09/08/2024 03:06:54 PM Interpretation: Performing Lab: Notes/Report: Source Facility: [place] [address] [place] [address] Electrocardiograph Report Signed Patient: OSCAR HORTA MR#: [id number] : 1940 Acct:[id number] Age/Sex: 83 / F ADM Date: 09/05/24 Loc: MS 214-[address]: Mateus Blake M.D. 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 Signed By: 09/08/24 0738 DD/ TD/TT: Drive Away Driver:XR HAND LT MIN 3V Reviewed date:09/05/2024 05:59:46 PM Interpretation: Performing Lab: Notes/Report: Source Facility: [place] [address] XRay Report Signed Patient: OSCAR HORTA MR#: [id number] : 1940 Acct:[id number] Age/Sex: 83 / F ADM Date: 09/05/24 Loc: ER Attending Dr: Ordering Physician: Margie Tellez Date of Service: 09/05/24 Procedure(s): XR hand LT min 3V Accession Number(s): [id number] cc: Mateus Blake M.D.; Margie Tellez [place] [address] Patient Name: OSCAR HORTA MRN: [id number] date: 1940 Sex: F Assigned Patient Location: ED.MAIN Current Patient Location: ED.MAIN Accession/Order Number: [id number] Exam Date: 09/05/2024 17:05 Report Date: 09/05/2024 [...] M.D. Signed By: 09/05/241753 DD/ 51 TD/TT: Drive Away Driver:Troponin I High Sensitivity Reviewed date:09/05/2024 05:55:22 PM Interpretation: Performing Lab: Notes/Report: [facility] ,Troponin I High Yyocewavqbx92.34.0-51.3 pg/mL CUT-OFF POINTS HAVE BEEN ESTABLISHED BASED ON THE FOURTH UNIVERSAL DEFINITION OF MYOCARDIAL INFARCTION. THE UPPER REFERENCE LIMIT (URL) OF TROPONIN, DEFINED THE 99TH PERCENTILE OF cTnI DISTRIBUTION IN A REFERENCE POPULATION, HAS BEEN CONFIRMED THE DECISION THRESHOLD FOR DC DIAGNOSIS. 99TH PERCENTILE = 51.4 PG/ML NOTE: HIGH-SENSITIVITY TROPONIN ASSAY IS NOT INTENDED TO BE USED IN ISOLATION BUT SHOULD BE INTERPRETED IN CONJUNCTION WITH OTHER DIAGNOSTIC AND CLINICAL INFORMATION. Performing Lab:see noteML - [facility] LBProthrombin Time INR Reviewed date:09/05/2024 05:55:22 PM Interpretation: Performing Lab: Notes/Report: [facility] ,Prothrombin Time12.79.0-11.6 secINR1.22 DESIRED INR: 2.0-3.0 CONDITIONS NOT LISTED BELOW 2.5-3.5 FOR PROSTHETIC HEART VALVE REPLACEMENT 2.5-3.5 RECURRENT THROMBOSIS Performing Lab:see noteML - [facility] LBPROF 14(COMP METB) Reviewed date:09/05/2024 05:55:22 PM Interpretation: Performing Lab: Notes/Report: [facility] ,Jarfft174079-267 mmol/LPotassium4.63.5-5.1 mmol/TXncgsrty2873-120 mmol/LCarbon Bjouwou72.721.0-32.0 mmol/LAnion Gap14.0Nsawnmh09919-435 mg/dLBlood Urea Xyytuzmj83.07.0-18.0 mg/dLCreatinine2.060.55-1.02 mg/dLEstimated GFR ( Vqgmnvo12>=60 mL/min/1.73m 2Estimated GFR (Non- Ame23>=60 mL/min/1.73m 2 BUN Creatinine Ratio15.9Kqdocjc0.08.5-10.1 mg/dLBilirubin Total0.50.2-1.0 mg/dL Aspartate Amino Gcfpnmzxbgk0844-22 U/LAlanine Ltpaxlpewpzgqzwl076-18 U/LAlkaline Ymidbgafdyy2155-197 U/LTotal Protein6.76.4-8.2 g/dLAlbumin Level2.83.4-5.0 g/dL Globulin3.9Albumin Globulin Ratio0.7Performing Lab:see noteML - [facility] LBLACTATE or LACTIC ACID Reviewed date:09/05/2024 05:55:22 PM Interpretation: Performing Lab: Notes/Report: [facility] ,Lactate/Lactic Acid2.30.4-2.0 mmol/LRESULTS CALLED TO YANA SZYMANSKI Performing Lab:see note - [facility] LBCBC AUTO DIFF Reviewed date:09/05/2024 05:55:22 PM Interpretation: Performing Lab: Notes/Report: [facility] ,White Blood Count14.24.0-11.0 10 3/uLRed Blood Count3.094.20-5.40 10 6/uL Hemoglobin9.512.0-16.0 g/zEEpcjxupmlm01.336.0-48.0 %Mean Corpuscular Koqqwk00.8 81.0-99.0 fLMean Corpuscular Hvgesbvhkf97.726.7-34.0 pgMean Corpuscular HGB Conc 32.429.9-35.2 g/dLRed Cell Distribution Width14.511.0-15.0 %Platelet Vfxma963 150-450 10 3/uLMean Platelet Volume9.49.5-13.5 fLNeutrophils Percent Auto82.4 43.0-75.0 %Lymphocytes Percent Auto7.920.5-60.0 %Monocytes Percent Auto8.81.7- 12.0 %Eosinophils Percent Auto0.10.9-7.0 %Basophils Percent Auto0.20.2-2.0 % Immature Granulocytes Pct Auto0.60.0-0.5 %Neutrophils Absolute Auto11.71.4-6.5 10 3/uLLymphocytes Absolute Auto1.11.2-3.8 10 3/uLMonocytes Absolute Auto1.20.3- 0.8 10 3/uLEosinophils Absolute Auto0.00.0-0.7 10 3/uLBasophils Absolute Auto0.0 0.0-0.1 10 3/uLImmature Granulocytes Abs Auto0.080.00-0.03 10 3/uLPerforming Lab:see noteML - [facility] LBXR chest 2V Reviewed date:07/11/2024 09:52:06 PM Interpretation: Performing Lab: Notes/Report: Source Facility: [place] [address] XRay Report Signed Patient: OSCAR HORTA MR#: [id number] : 1940 Acct:[id number] Age/Sex: 83 / F ADM Date: 07/11/24 Loc: RAD Attending Dr: Brian Potter M.D. Ordering Physician: Brian Potter M.D. Date of Service: 07/11/24 Procedure(s): XR chest 2V Accession Number(s): [id number] cc: Brian Potter M.D.; Mateus Blake M.D. [place] [address] Patient Name: OSCAR HORTA MRN: [id number] date: 1940 Sex: F Assigned Patient Location: RAD Current Patient Location: RAD Accession/Order Number: [id number] Exam Date: 07/11/2024 10:57 Report Date: 07/11/2024 [...] Signed By: 07/11/24 1246 DD/ 1243 TD/TT: Drive Away Driver:BNP Reviewed date:09/23/2024 10:46:47 AM Interpretation: Performing Lab: Notes/Report: [facility] ,NT Pro B Type Natriuretic Gcmv4158.0<=1800.0 pg/mLRESULTS CALLED TO TEE STEARNS LPN at 1037Performing Lab:see noteML - [facility] LBLIVER PROFILE Reviewed date:03/19/2025 06:23:50 PM Interpretation: Performing Lab: Notes/Report: [facility] ,Bilirubin Total0.50.2-1.0 mg/dLBilirubin Direct0.10.0-0.2 mg/dLAspartate Amino Pbwwynnkfwq1336-02 U/LAlanine Tnjqovhkzaqtqhjv1246-69 U/LAlkaline Yqqchreyjkx196 46-116 U/LTotal Protein7.06.4-8.2 g/dLAlbumin Level2.93.4-5.0 g/dLGlobulin4.1 Albumin Globulin Ratio0.7Performing Lab:see noteML - [facility] LB LIPASE Reviewed date:03/19/2025 06:23:50 PM Interpretation: Performing Lab: Notes/Report: [facility] ,Bvksfd319.016.0-77.0 U/LPerforming Lab:see noteML - [facility] LB FERRITIN Reviewed date:03/20/2025 06:20:42 PM Interpretation: Performing Lab: Notes/Report: Comment Add to an already drawn sample [facility] ,Idkfbplb978.08.0-252.0 ng/mLPerforming Lab:see noteML - [facility] LBAMYLASE Reviewed date:03/19/2025 06:23:50 PM Interpretation: Performing Lab: Notes/Report: [facility] ,Wkcbhfo6128-447 U/LPerforming Lab:see note - [facility] LBVITAMIN D 25 [place] Reviewed date:09/23/2024 01:16:30 PM Interpretation: Performing Lab: Notes/Report: [facility] ,Vitamin D81.3 <20 ng/mL Vit D deficient 20-<30 ng/mL Vit D insufficient 30-100 ng/mL Vit D sufficient >100 ng/mL Potential Toxicity Performing Lab:see noteML - [facility] LBTSH Reviewed date:09/23/2024 10:46:47 AM Interpretation: Performing Lab: Notes/Report: [facility] ,Thyroid Stimulating Hormone0.1190.358-3.740 uIU/mLPerforming Lab:see note - [facility] LBT4 Reviewed date:09/23/2024 10:46:47 AM Interpretation: Performing Lab: Notes/Report: [facility] ,T4 Thyroxine9.504.80-13.90 ug/dLPerforming Lab:see noteML - [facility] LBPROF 14(COMP METB) Reviewed date:09/23/2024 10:46:47 AM Interpretation: Performing Lab: Notes/Report: [facility] ,Nssdxv168615-414 mmol/LPotassium3.43.5-5.1 mmol/UKujmauug86476-785 mmol/LCarbon Xxoodil08.621.0-32.0 mmol/LAnion Gap9.6Behpwmr52491-520 mg/dLBlood Urea Oqiellkw04.07.0-18.0 mg/dLCreatinine1.250.55-1.02 mg/dLEstimated GFR ( Kvwfefk26>=60 mL/min/1.73m 2Estimated GFR (Non- Ame41>=60 mL/min/1.73m 2 BUN Creatinine Ratio18.0Jsawstq4.68.5-10.1 mg/dLBilirubin Total0.50.2-1.0 mg/dL Aspartate Amino Vashwhjfnlb9880-45 U/LAlanine Aazpujoxcrxveery2552-35 U/L Alkaline Mlunghkwdfb3144-879 U/LTotal Protein6.86.4-8.2 g/dLAlbumin Level3.03.4- 5.0 g/dLGlobulin3.8Albumin Globulin Ratio0.8Performing Lab:see note - [facility] LBLIPID PROFILE Reviewed date:09/23/2024 10:46:47 AM Interpretation: Performing Lab: Notes/Report: [facility] ,Hpeqqbwlzihet564<=150 mg/cKQeazkdhczxk562<=200 mg/dLHDL Fzfsyndtbib5187-54 mg/dL > or =60 mg/dl - LOW CARDIOVASCULAR RISK <40 mg/dl - HIGH CARDIOVASCULAR RISK LDL Cholesterol Ygpgbdzrvt40.0 <100 mg/dl OPTIMAL 100-129 mg/dl NEAR OR ABOVE OPTIMAL 130-159 mg/dl BORDERLINE HIGH 160-189 mg/dl HIGH >190 mg/dl VERY HIGH VLDL EHYCBCVSCDL37.4Chol HDL Ratio2.5 3.3 - 4.4 LOW RISK 4.4 - 7.1 AVERAGE RISK 7.1 - 11.0 MODERATE RISK >11.0 HIGH RISK Performing Lab:see note - [facility] LBIRON Reviewed date:09/23/2024 10:46:47 AM Interpretation: Performing Lab: Notes/Report: [facility] ,Iron56.050.0-170.0 ug/dLPerforming Lab:see note - [facility] FREE T3 Reviewed date:09/23/2024 10:46:47 AM Interpretation: Performing Lab: Notes/Report: [facility] ,Free T32.322.18-3.98 pg/mLPerforming Lab:see note - [facility] LB Salmonella/Shigella Screen Reviewed date:03/25/2025 05:05:47 PM Interpretation: Performing Lab: Notes/Report: [facility] ,Salmonella/Shigella ScreenSee Below For Report Salmonella/Shigella Screen Salmonella/Shigella ScreenNo Salmonella or Shigella recovered. Salmonella/Shigella Screen Performing Lab:see noteLC - [facility] LBE coli Shiga Toxin EIA Reviewed date:03/25/2025 05:05:47 PM Interpretation: Performing Lab: Notes/Report: [facility] ,E coli Shiga Toxin EIASee Below For Report E coli Shiga Toxin EIA E coli Shiga Toxin EIANegative E coli Shiga Toxin EIA E coli Shiga Toxin EIAPerformed at: CB - [facility] E coli Shiga Toxin EIA E coli Shiga Toxin [id number] [place], [place] [id number] E coli Shiga Toxin EIA E coli Shiga Toxin EIALab Director: Esteban Martinez PhD, Phone: [phone] E coli Shiga Toxin EIA Performing Lab:see note LC - [facility] LB SEE REPORT - Merchant Banker Id information not found for OBX-specific stock clipper legend CBC no Diff (Hemogram) Reviewed date:03/23/2025 03:38:42 PM Interpretation: Performing Lab: Notes/Report: [facility] ,White Blood Count8.64.0-11.0 10 3/uLRed Blood Count2.894.20-5.40 10 6/uL Hemoglobin9.012.0-16.0 g/iFMopbsiwbrf11.736.0-48.0 %Mean Corpuscular Xgbmyj17.3 81.0-99.0 fLMean Corpuscular Kisndasfye74.126.7-34.0 pgMean Corpuscular HGB Conc 31.429.9-35.2 g/dLRed Cell Distribution Width14.811.0-15.0 %Platelet Mgnrg055 150-450 10 3/uLMean Platelet Uohdrp69.09.5-13.5 fLPerforming Lab:see noteML - [facility] LB Reason For Referral Reason Patient currently at the [facility] please call [phone] ask for 200 beck nurse Diagnosis 1 Anemia, iron deficie ncy (D50.9) Referral Organization [facility] Medicine Referring Provider First Name Rony Referring Provider Last Name Hayden Referring Provider Speciality [facility] icine Referred Provider Specialty Gastroentero logy Referral Priority Routine Medications Medication SIG (Take, Route, Frequency, Duration) Notes Start Date End Date Status Febuxostat 40 MG 1 tablet Orally Once a day 5ActiveFerrous Sulfate 325 (65 Fe) MGTAKE 1 TABLET BY MOUTH TWICE A DAY FOR 30 DAYS; Duration: 90ActiveBD Pen Needle Mini U/F 31G X 5 MMUSE 1 PEN NEEDLE VIA PEN FOUR TIMES DAILY TO INJECT INSULIN DX E11.9 90 DAYS; Duration: 90 ActiveEliquis 5 MG1/2 tablet Orally Twice a dayActiveFreeStyle Sami 2 Sensor - Dx: E11.9 apply 1 sensor every 2 week; Duration: 30 daysActiveFurosemide 40 MG1 tablet Orally twice a day, every other day; Duration: 90 daysActiveFish Oil 1000 MG1 capsule Orally twice a day4ActiveFreeStyle Sami 2 Powell -Use reader multiple times daily to check glucose DX E11.9; Duration: 730 days Patients reader is not reading accurately even with new patch applied- please send new reader. Thank You4ActiveBasaglar KwikPen 100 UNIT/ML 10 units daily Subcutaneous daily; Duration: 30 days DX E11.9 5ActiveTylenol 325 MG2 tablet as needed Orally every 4 hrsActive Ventolin HFA 108 (90 Base) MCG/ACT2 puff as needed Inhalation every 4 hrsPRN 4ActivePantoprazole Sodium 40 MGTAKE 1 TABLET BY MOUTH TWICE A DAY; Duration: 90ActivePotassium Chloride ER 10 MEQ1 tablet with food Orally Twice a day; Duration: 30 days5ActiveGabapentin 100 MG1 capsule Orally twice daily; Duration: 30 daysActiveMetoprolol Succinate ER 200 MG1/2 tablet Orally Once a day; Duration: 90 daysActiveOndansetron 4 MG1 tablet on the tongue and allow to dissolve Orally qid5ActiveSucralfate 1 GMTAKE 1 TABLET BY MOUTH FOUR TIMES A DAY *BEFORE MEALS AND AT BEDTIME*; Duration: 30ActivetraMADol HCl 50 MG 2 tablet Orally every 6 hours; Duration: 30 days As needed R26.89 5ActiveSimvastatin 40 MG1 tablet in the evening Orally Once a day; Duration: 90 daysActiveAlbuterol Sulfate (2.5 MG/3ML) 0.083%3 mL as needed Inhalation every 6 hrs; Duration: 30 daysDx: J44.9ActiveVitamin D3 125 MCG (5000 UT)1 capsule Orally Once a day02/08/2024ctivemetFORMIN HCl 500 MGTAKE 1 TABLET BY MOUTH TWICE A DAY; Duration: 90ActiveLevothyroxine Sodium 112 MCGTAKE 1 TABLET BY MOUTH EVERY DAY; Duration: 90 daysActiveLiothyronine Sodium 5 MCG2 tablet on an empty stomach Orally Once a day; Duration: 90 daysActivehydrALAZINE HCl 100 MG1 tablet with food Orally TID if SBP>130; Duration: 90 daysPRNActive HYDROcodone-Acetaminophen 5-325 MG 1 tablet Orally qid - prn; Duration: 7 days M54.50 PRN02/12/2024ctiveAnastrozole 1 MG1 tablet Orally Once a dayActiveAspirin 81 81 MG1 tablet Orally Once a dayActiveHumaLOG 100 UNIT/MLas directed Injection sliding scale- 141-200 3 units; 201-250 5units; 251-300 8units; 301-350 12 uni ts; 351-400 15 units; over 400 15 units and CALL BCQSVE924Active Ketoconazole 2 %1 application Externally Twice a day; Duration: 60VCF8702/08/2024 ActivepredniSONE 5 MG2 tablet with food or milk Orally Once a day; Duration: 30 days5ActiveLeflunomide 20 MG1 tablet Orally Once a day5Active Hyoscyamine Sulfate 0.125 MG1-2 tabs SL SL every 4 hrs PRN abd pain03/19/2025 ActiveIsosorbide Mononitrate ER 60 MGTAKE 1 TABLET BY MOUTH EVERY DAY; Duration: 90Active Immunizations Vaccine Route Administration Date Status Comme nts Flu, Fluad (37452) 65 yrs and older, single-dose syringe (3686-0650) IM Intramuscular 06/25/2024 Administered Social History Tobacco Use: Social History Observation Description Date Details (start date - stop date) Former Smoker 09/11/1958 - 09/11/2018 Tobacco Use/Smoking Question Answer Notes Patient is a former smoker When did you start smoking?09/11/1958When did you stop smoking?09/11/2018How long has it been since you last smoked?1-5 yearsAdditional Findings: Tobacco Non-UserCurrent non-smokerAlcohol Screen (Audit-C) Question Answer Notes Did you have a drink containing alcohol in the p ast year? No Cteomn9BikqwaeshlbytsSkbailqzVVWJK-Z (Standard) Question Answer Notes Did you have a drink containing alcohol in the p ast year? 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) ActiveconfirmedProblemAcute on chronic diastolic heart failure (197224107)Acute on chronic diastolic (congestive) heart failure (I50.33)ActiveconfirmedProblem Acute exacerbation of chronic obstructive airways disease (344646480)Chronic obstructive pulmonary disease with (acute) exacerbation (J44.1)Activeconfirmed ProblemPrimary gout (76747830)Idiopathic gout, multiple sites (M10.09)Active confirmedProblemOsteoarthritis (775199804)Unspecified osteoarthritis, unspecified site (M19.90)ActiveconfirmedProblemDegeneration of cervical intervertebral disc (58293534)Other cervical disc degeneration, cervicothoracic region (M50.33)ActiveconfirmedProblemChronic kidney disease stage 2 (292035547) Chronic kidney disease, stage 2 (mild) (N18.2)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, 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)ActiveconfirmedProblem Abnormal gait (04290867)Other abnormalities of gait and mobility (R26.89)Active confirmedProblemWeakness (11769997)Weakness (R53.1)ActiveconfirmedProblemHigh grade squamous intraepithelial lesion on anal Papanicolaou smear ([id number])High grade squamous intraepithelial lesion on cytologic smear of anus (HGSIL) (R85.613)ActiveconfirmedProblemMorbid obesity (378661324)Morbid obesity (E66.01)ActiveconfirmedProblemHypertension (04300025)Hypertension (I10) ActiveconfirmedProblemChronic obstructive pulmonary disease (83364804)Chronic obstructive pulmonary disease (COPD) (J44.9)ActiveconfirmedProblem Gastroesophageal reflux disease (587379883)GERD (gastroesophageal reflux disease) (K21.9)ActiveconfirmedProblemChronic kidney disease (986074464)Chronic kidney disease (N18.9)ActiveconfirmedProblemCoronary artery disease (67160235) CAD (coronary artery disease) (I25.10)ActiveconfirmedProblemHypertension (68209505)HTN (hypertension) (I10)ActiveconfirmedProblemTachycardia (9745621) Tachycardia (R00.0)ActiveconfirmedProblemHypothyroid (34418354)Hypothyroid (E03.9)ActiveconfirmedProblemOsteopenia (627589529)Osteopenia (M85.80)Active confirmedProblemChronic kidney disease stage 2 (888714046)Chronic kidney disease (CKD) stage G2/A1, mildly decreased glomerular filtration rate (GFR) xijgtdo48- 89 mL/min/1.73 square meter and albuminuria creatinine ratio less than 30 mg/g (N18.2)ActiveconfirmedProblemHip pain (85235887)Hip pain (M25.559)Active confirmedProblemUrinary incontinence (689445148)Urinary incontinence (R32)Active confirmedProblemParoxysmal atrial fibrillation (216696440)Paroxysmal atrial fibrillation (I48.0)ActiveconfirmedProblemAtrial fibrillation (13377887)Atrial fibrillation (I48.91)ActiveconfirmedProblemAcute combined systolic and diastolic heart failure (843582658470947)Acute combined systolic (congestive) and diastolic (congestive) heart failure (I50.41)ActiveconfirmedProblemType 2 diabetes mellitus (57770907)Type 2 diabetes mellitus (E11.9)Activeconfirmed ProblemBack pain (837180546)Back pain (M54.9)ActiveconfirmedProblemRheumatoid arthritis (75438705)RA (rheumatoid arthritis) (M06.9)ActiveconfirmedProblem Lumbar radiculopathy (972156975)Lumbar radiculopathy (M54.16)Activeconfirmed ProblemBronchitis (89729292)Bronchitis (J40)ActiveconfirmedProblem Hypertriglyceridemia (503742359)Hypertriglyceridemia (E78.1)Activeconfirmed ProblemEdema (862762943)Edema leg (R60.0)ActiveconfirmedProblemRectal bleeding (33500803)Rectal bleeding (K62.5)ActiveconfirmedProblemAcquired hypothyroidism (024217324)Acquired hypothyroidism (E03.9)ActiveconfirmedProblemIron deficiency anemia (01323230)Iron deficiency anemia (D50.9)ActiveconfirmedProblem Inflammation of bursa of olecranon (435302178)Olecranon bursitis of left elbow (M70.22)ActiveconfirmedProblemChronic diastolic heart failure (895626693)Chronic diastolic heart failure (I50.32)ActiveconfirmedProblemIron deficiency anemia (38977752)Anemia, iron deficiency (D50.9)ActiveconfirmedProblemGastrointestinal hemorrhage (55042687)GI bleed (K92.2)ActiveconfirmedProblemDiverticular disease of colon (408463778)Colon, diverticulosis (K57.30)ActiveconfirmedProblemRight lower lobe pneumonia (306145792)Right lower lobe pneumonia (J18.9)Active confirmedProblemAsthma without status asthmaticus (71166529)AB (asthmatic bronchitis) (J45.909)ActiveconfirmedProblemChronic congestive heart failure (39870694)Chronic CHF (I50.9)ActiveconfirmedProblemPeripheral vascular disease (304960638)Other peripheral vascular disease (I73.89)ActiveconfirmedProblem Anemia of renal disease (999061178)Anemia of renal disease (D63.1)Active confirmedProblemArteriosclerosis of artery of extremity (disorder) (485619944) Atherosclerosis of [place] artery of extremity (I70.209)ActiveconfirmedProblem Chronic airway obstruction (71757662)Chronic airway obstruction (J44.9)Active confirmedProblemLong-term current use of insulin (903928866)Long-term insulin use (Z79.4)ActiveconfirmedProblemPseudoaneurysm of femoral artery (575088900) Pseudoaneurysm of femoral artery (I72.4)ActiveconfirmedProblemSevere protein calorie malnutrition (903642945)Severe protein-calorie malnutrition (E43)Active confirmedProblemGastro-esophageal reflux disease (956003086)Gastro-esophageal reflux disease (K21.9)ActiveconfirmedProblemNoninflammatory disorder of vulva (25587062)Vulval lesion (N90.89)ActiveconfirmedProblemDiabetes mellitus type II (74497603)DM (diabetes mellitus), type 2 (E11.9)ActiveconfirmedProblemRheumatoid arthritis (98433605)Rheumatoid arthritis flare (M06.9)ActiveconfirmedProblem Peripheral vertigo (43999652)Vertigo, peripheral (H81.399)ActiveconfirmedProblem Pure hypercholesterolemia (646051794)Pure hypercholesterolemia, unspecified (E78.00)ActiveconfirmedProblemMalignant neoplasm of female breast (359497293) Invasive ductal carcinoma of breast, 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)ActiveconfirmedProblemType II diabetes mellitus without complication (552062839)Controlled type 2 diabetes mellitus (E11.9)ActiveconfirmedProblemHuman papillomavirus (6206446)Human papillomavirus (A63.0)ActiveconfirmedProblemAcquired thrombocytopenia (09275095) Acquired thrombocytopenia (D69.6)ActiveconfirmedProblemMalnutrition of moderate degree (Carmen: 60% to less than 75% of standard weight) (03458508)Moderate protein malnutrition (E44.0)ActiveconfirmedProblemBruising (467718571)Bruising (T14.8XXA)ActiveconfirmedProblemType II diabetes mellitus without complication (845899896)Diabetes (E11.9)ActiveconfirmedProblemDiabetes mellitus (36680812) Diabetes mellitus (E11.9)ActiveconfirmedProblemChronic kidney disease stage 4 (399782029)Acute worsening of stage 4 chronic kidney disease (N18.4)Active confirmed Vital Signs Temperature 97.6 degrees Fahrenheit 10/14/2024 Lxhcbalu82 %10/14/2024lood pressure uvummmiub67 mm Hg07/04/20250038Xsdgnj66 in 07/04/2025lood pressure ksyoweik300 mm Hg07/04/20256321Vkqsri343 lbs1MI 25.32 kg/m207/04/2025 Procedures Procedure Date Ordered Date Performed Result Body Sit e EAR IRRIGATION - performed 03/07/2025 N/AEAR IRRIGATION - jiufgnktd04/09/2025N/A Encounters Encounter Location Date Provider Diagnosis [facility] [place] [address] [facility] [facility] [place] [address] 04/29/2025 [facility] [facility] [place] [address] 06/01/2025Doug [facility] [facility] [place] [address]/10/2024Doug [facility] [facility] [place] [address]/11/2024Doug HoyGastroenteritis K52.9B[facility] [facility] [facility] [place] [address]/Doug [facility] [facility] [place] [address] 02/11/2025Doug HoyHypertension N27AznhirrChildren'[facility] [place] [place] [facility] [facility] [place] [address]/05/2025Doug [facility] [address] [facility] [facility] [place] [address]/06/2025Doug [facility] [facility] [place] [address]/Doug [facility] [facility] [place] [address] 03/27/2025Doug HoyAnemia, iron deficiency D50.9 and GI bleed K92.2BLincoln [facility] [facility] [place] [address]/ [facility] [facility] [place] [address]/4[facility]ou[facility] [facility] [place] [address]/Doug [facility] [place] [facility] [place] [address]/Doug [facility] [facility] [place] [address]/Doug [facility] [facility] [place] [address]/10/2024 Rony [facility] [facility] [place] [address]/01/2025Doug HoyHypertension I10BV[facility] [facility] [place] [address]/oug [facility] [facility] [place] [address]/Doug HoyAcute bronchitis, unspecified organism J20.9 and Right lower lobe pneumonia J18.9 [facility] [place] [place] [facility] [place] [address] 07/04/2025Doug HoyBack pain M54.9BLincoln [facility] Hospital[address] [place] [place] [address]/05/2025Doug HoyHypertension I10 ; CAD (coronary artery disease) I25.10 ; Diabetes mellitus E11.9 ; Chronic obstructive pulmonary disease (COPD) J44.9 and Acquired hypothyroidism E03.9BLincoln [facility] Hospital[address] [place] [facility] [place] [address]/Doug HoyUTI (urinary tract infection) N39.0 and Bilateral impacted cerumen H61.23[facility] [place] [place] [place] [address]/05/2025 Rony HoyGastroenteritis K52.9 and Bilateral impacted cerumen H61.[address] [address]/10/2024 Rony HoyCAD (coronary artery disease) I25.10 and Paroxysmal atrial fibrillation I48.[address] [address] 09/19/2024Doug HoyHypertension I10 ; Hypothyroidism E03.9 ; CAD (coronary artery disease) I25.10 ; Gastro-esophageal reflux disease K21.9 ; Pure hypercholesterolemia, unspecified E78.00 [address] [address]/Doug Hoy Bruising T14.8XXAB[address] [address]/11/2024Doug HoyFoul smelling urine R82.90 ; Acute bronchitis, unspecified organism J20.9 and Cough R05.9 Assessments Encounter Date Diagnosis (ICD Code) Assessment Notes Treatment Notes Treatment Clinical Notes Section Notes 09/12/2024 CAD (coronary artery disease) (I CD-10 - I25.10) 09/12/2024Paroxysmal atrial fibrillation (ICD-10 - I48.0)12/18/2024Hypertension (ICD-10 - I10)5CAD (coronary artery disease) (ICD-10 - I25.10) 5Bruising (ICD-10 - T14.8XXA)10/14/2024Foul smelling urine (ICD-10 - R82.90)5Acute bronchitis, unspecified organism (ICD-10 - J20.9)Rest and drink more liquids, especially water. You may use a humidifier or vaporizer to help keep the drainage moist. Jxoo-beb-xsryavf Nasal Saline may help the stuffy and runny nose. Use Ibuprofen and or Tylenol as needed for fever, chills, body aches or pain. Children 5 years old should not be given htll-ief-pttxdvc cough and cold medications such as guaifenesin and dextromethorphan. If you're over age 5, you may try odnh-hne-smdwjmd cold medications such as guaifenesin and dextromethorphan, or multi-symptom cold reliever such as Dayquil to help reduce the symptoms. Antibiotics have been prescribed. You should take these until completed and follow the directions. Antibiotics can sometimescause upset stomach, and in rare cases, serious [...] go to the emergency room or call [phone] (ICD-10 - I10)diastolic low - no change in meds09/19/2024Hypothyroidism (ICD-10 - E03.9)on meds - checking on labs5Acute bronchitis, unspecified organism (ICD-10 - J20.9)Rest and drink more liquids, especially water. You may use a humidifier or vaporizer to help keep the drainage moist. Oyhx-xfe-atwmdck Nasal Saline may help the stuffy and runny nose. Use Ibuprofen and or Tylenol as needed for fever, chills, body aches or pain. Children 5 years old should not be given spul-pcw-wufttuv cough and cold medications such as guaifenesin and dextromethorphan. If you're over age 5, you may try eyhd-qte-bvxemxv cold medications such as guaifenesin and dextromethorphan, or multi-symptom cold reliever such as Dayquil to help reduce the symptoms. Antibiotics have been pre scribed. You should take these until completed and follow the directions. Antibiotics can sometimescause upset stomach, and in rare cases, serious allergic reactions or serious gastrointestinal problems. If you start having severe abdominal pain, severe vomiting, or bloody diarrhea, you should be r eevaluated by your physician or urgent care immediately. Follow up with your Primary Care Provider or return to clinic if symptoms do not improve within 3-5 days. If you develop severe symptoms such as shortness of breath, repeated vomiting, coughing up blood, or chest pain you should go to the emergency room or call [phone]/Right lower lobe pneumonia (ICD-10 - J18.9)egophony on exam 03/19/2025Gastroenteritis (ICD-10 - K52.9)Get plenty of rest. Stay hydrated by sucking on ice chips or taking small sips of water. You can also try drinking clear soda, clear broths or noncaffeinated sports drinks. Stop eating solid foods for a few hours to let your stomach settle. East back into eating by eating bland, hyfp-rw-fyjwgb foods like crackers, toast, gelatin, bananas, rice and chicken. Try to avoid foods/substances including dairy products, caffeine, alcohol, nicotine and fatty or highly seasoned foods. Medications such as i buprofen or tylenol can make your stomach more upset, so use sparingly if at all. Also avoid qahc-ynd-zranunk anti-diarrheal medications because it can make it harder for your body to eliminate the virus.03/19/2025ilateral impacted cerumen (ICD-10 - H61.23)03/07/2025UTI (urinary tract infection) (ICD-10 - N39.0)03/07/2025ilateral impacted cerumen (ICD-10 - H61.23)07/04/2025ack pain (ICD-10 - M54.9)01/13/2025Hypertension (ICD-10 - I10)02/11/2025Hypertension (ICD-10 - I10)03/27/2025nemia, iron deficiency (ICD-10 - D50.9)03/27/2025GI bleed (ICD-10 - K92.2)06/13/2025Gastroenteritis (ICD-10 - K52.9)09/19/2024AD (coronary artery disease) (ICD-10 - I25.10)no chest pain10/14/2024ough (ICD-10 - R05.9)12/18/2024Diabetes mellitus (ICD-10 - E11.9)12/18/2024hronic obstructive pulmonary disease (COPD) (ICD-10 - J44.9)09/19/2024Gastro-esophageal reflux disease (ICD-10 - K21.9)Stable on emeds01/09/2025Pure hypercholesterolemia, unspecified (ICD-10 - E78.00)on meds - pybeld0812/18/2024 Acquired hypothyroidism (ICD-10 - E03.9)09/19/2024Hypothyroid (ICD-10 - E03.9) 07/04/2025OtherRecommended to rest and use a heating pad on the area. Take NSAIDs for pain as needed Plan Of Treatment Pending Test Test Name Order Date CMP (COMPLETE METABOLIC PANEL) 3 UA (URINALYSIS, COMPLETE) 05/09/2023 CULTURE, STOOL 03/19/2025 HEMOGLOBIN A1C (GLYCO) 09/19/2024 IRON, TOTAL 09/19/2024 LIPID PANEL (CHOL/TRIG/HDL/LDL) 09/19/19 25 CBC WITH DIFF 09/19/2024 VITAMIN D, 25 LEVEL (TOTAL) 09/19/2024 BMP w/GFR 04/30/2024 Urinalysis Microscopic 05/09/2023 EAR IRRIGATION - performed 03/07/2025 EAR IRRIGATION - performed 03/19/2025 C DIFF TOX PCR STOOL 03/19/2025 CBC W/AUTO DIFF 07/17/2023 CULTURE URINE 05/09/2023 GLYCOHEMOGLOBIN A1C 03/13/2023 CT ABD and PELV W CON 03/19/2025 XR HIP LT 2 3V W PELVIS 07/04/2025 XR KNEE LT 3V 07/04/2025 XR KNEE RT 3V 07/04/2025 XR LSPINE MIN 4 VIEWS 07/04/2025 THYROID PANEL (T4/TSH/FREE T3) 5 THYROID PANEL (T4/TSH/FREE T3) 3 MG MAMM SCREEN 3D DAVID CAD 06/06/2024 XR HIP RT 2 3V W PELVIS 07/04/2025 BASIC METABOLIC PANEL 05/01/2024 CMP (COMP MET [place]) w/eGFR CKD-EPI 2024 Insurance Providers Payer Name Payer Address Payer Phone Subscriber Number Group Number Insured Name Patient Relationship to Insured Coverage Start Date Coverage End Date [place]IC[place] [address] [place] [place] [address] [id number] Horta, BertieSelf - patient is the [id number] [facility] [place], [place] [id number], BertieSelf - patient is the [id number] 2007 Medications Administered Medication Instructions Date of Administration Dosage Notes Kenalog-40 zx83Fziutdujk Ymjayityvlhy33/30/993955 mg Medical (General) History Medical History History [...] Chronic diastolic heart failure I50.32 Atherosclerosis of [place] artery of extr emity I70.209 Paroxysmal atrial [...] 9 gluteal abscess Surgical History Surgery Date(Month/Year) stent in heart appendixDefib bmtvxebwt13/24I and D Right Glut Abcesslumpectomystent in right legstent in kidneyHospitalization History Reason Date(Month/Year) Gout/Arthritis/ Bronchitis 2022
--- OUTSIDE RECORDS SUMMARY | 2025-07-04 11:25 | XMS_ITS | Encounter Summary ---
Author Organization [facility] Address [address] [place] [address] Care Team Providers Care Animal Husbandry Technician Name Role Phone Gil Blake MD Primary Care Provider [phone] Encounter Details DateTypeDepartmentCare Team (Latest Contact Info)Gbqwtkvkgqa00/23/2025amboo flowsheet [facility] [address] [place] [address] Peyman Roper DPM [address] [address] Social History Tobacco UseTypesPacks/DayYears UsedDateSmoking Tobacco: FormerCigarettes Smokeless Tobacco: NeverAlcohol UseStandard Drinks/WeekCommentsNever0 (1 standard drink = 0.6 oz pure alcohol)CommentsUnknownSex and Gender InformationValueDate RecordedSex Assigned at BirthNot on fileLegal SexFemale 11/23/2022 7:38 PM EDTGender IdentityNot on fileSexual OrientationNot on file documented as of this encounter Plan of Treatment DateTypeDepartmentCare Team (Latest Contact Info)Mjyjwjkkmij99/22/2026 1:50 PM ESTOffice Visit [facility] [address] [place] [address] Peyman Roper DPM [address] [address] documented as of this encounter Visit Diagnoses Not on filedocumented in this encounter Care Teams Team MemberRelationshipSpecialtyStart DateEnd Date Gil Blake MD [address] [facility] [place] [address] PCP - GeneralFamily Medicine02/14/24documented as of this encounter
--- OUTSIDE RECORDS SUMMARY | 2025-07-04 11:25 | XMS_ITS | Encounter Summary ---
Author Organization [facility] Address [address] [place] [address] Care Team Providers Care Volcanologist Name Role Phone Gil Blake MD Primary Care Provider [phone] Encounter Details DateTypeDepartmentCare Team (Latest Contact Info)Wvlygvfospv31/23/2025Travel Social History Tobacco UseTypesPacks/DayYears UsedDateSmoking Tobacco: FormerCigarettes Smokeless Tobacco: NeverAlcohol UseStandard Drinks/WeekCommentsNever0 (1 standard drink = 0.6 oz pure alcohol)CommentsUnknownSex and Gender InformationValueDate RecordedSex Assigned at BirthNot on fileLegal SexFemale 11/23/2022 7:38 PM EDTGender IdentityNot on fileSexual OrientationNot on file documented as of this encounter Plan of Treatment DateTypeDepartmentCare Team (Latest Contact Info)Cdwexttsonn48/22/2026 1:50 PM ESTOffice Visit [facility] [address] [facility] [address] [place] [address] Peyman Roper DPM [address] [facility] [address] [place] [address] documented as of this encounter Visit Diagnoses Not on filedocumented in this encounter Care Teams Team MemberRelationshipSpecialtyStart DateEnd Date Gil Blake MD [address] [facility] [place] [address] PCP - GeneralFamily Medicine02/14/24documented as of this encounter
--- OUTSIDE RECORDS SUMMARY | 2025-07-04 11:25 | XMS_ITS | Clinical Summary ---
Author Organization [facility] Address [address] [place] [address] Care Team Providers Care Safety Supervisor Name Role Phone Gil Blake MD Primary Care Provider [phone] Allergies No known active allergies Medications MedicationSigDispense QuantityRefillsLast FilledStart DateEnd DateStatus albuterol (2.5 MG/3ML) 0.083% nebulizer solution USE 1 VIAL IN NEBULIZER 4 TIMES DAILY NEEDEDActive amLODIPine (Norvasc) 5 MG tablet Take 1 tablet by mouth DailyActive anastrozole (Arimidex) 1 MG chemo tablet Take 1 mg by mouth Daily.Active Eliquis 5 MG tablet TAKE 1 TABLET BY MOUTH IN THE MORNING AND AT SPHYKON3804/08/2024ctive febuxostat (Uloric) 40 MG tablet Take 40 mg by mouth in the morning.Active ferrous sulfate 325 (65 Fe) MG tablet Take 325 mg by mouth in the morning and 325 mg in the evening.04/19/2024ctive hydrALAZINE (Apresoline) 100 MG tablet Take 1 tablet by mouth in the morning and 1 tablet in the evening and 1 tablet before bedtime.Active isosorbide mononitrate ER (Imdur) 60 MG 24 hr tablet Take 1 tablet by mouth DailyActive Jardiance 10 MG Take 10 mg by mouth in the morning.12/11/2023ctive levothyroxine (Synthroid, Levoxyl) 112 MCG tablet Take 1 tablet by mouth DailyActive liothyronine (Cytomel) 5 MCG tablet Take 2 tablets by mouth DailyActive metoprolol succinate XL (Toprol-XL) 200 MG 24 hr tablet Take 1 tablet by mouth DailyActive simvastatin (Zocor) 20 MG tablet Take 1 tablet by mouth DailyActive Active Problems No known active problems Encounters DateTypeDepartmentCare KbjfWxorxhjbsoy31/23/2025 1:50 PM EDTOffice Visit [facility] [address] [facility] [address] [place] [address] Peyman Roper DPM Neoplasm of uncertain behavior of skin (Primary Dx); Diabetes mellitus due to underlying condition with diabetic polyneuropathy, 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 custodial insulin use (HCC); Pain due to onychomycosis of toenails of both feet; Venous insufficiency; Acquired deformity of left toe07/03/2025amboo flowsheet [facility] [address] [facility] [address] [place] [address] Peyman Roper DPM 07/03/2025Travelfrom Last 3 Months Family History Medical HistoryRelationNameCommentsArthritisMotherCancerMotherDiabetesMother Heart diseaseMotherHypertensionMotherRelationNameStatusCommentsFatherDeceased MotherDeceased Social History Tobacco UseTypesPacks/DayYears UsedDateSmoking Tobacco: FormerCigarettes Smokeless Tobacco: Never Tobacco Cessation:Counseling Given: Yes Alcohol UseStandard Drinks/WeekCommentsNever0 (1 standard drink = 0.6 oz pure alcohol)CommentsUnknownSex and Gender InformationValueDate RecordedSex Assigned at BirthNot on fileLegal QmiFjpyhs62/15/2023 7:38 PM EDTGender Identity Not on fileSexual OrientationNot on file Last Filed Vital Signs Vital SignReadingTime TakenCommentsBlood Pressure--Pulse--Temperature-- Respiratory Fzzp8881 1:58 PM EDTOxygen Saturation--Inhaled Oxygen Concentration--Gpcnfy58.8 kg (145 lb)07/03/2025 1:58 PM KCQVihgbs695.4 cm (5') 07/03/2025 1:58 PM EDTBody Mass Index28.321 1:58 PM EDT Plan of Treatment DateTypeDepartmentCare Team (Latest Contact Info)Kmbjokidwox87/22/2026 1:50 PM ESTOffice Visit [facility] [address] [facility] [address] [place] [phone] Peyman Roper DPM [address] [facility] 5 [place] [address] Health MaintenanceDue DateLast DoneCommentsPneumococcal Vaccine: 65+ Years (2 of 2 - PCV), 06/15/2010Influenza Vaccine (#1)2025 06/25/2024, 07/01/2021, 06/10/2020, Additional history exists Insurance [address] [place] [address] [place] [address] Care Teams Team MemberRelationshipSpecialtyStart Date Gil Blake MD [address] [facility] [place] [address] PCP - GeneralFamily Medicine02/14/24
--- OUTSIDE RECORDS SUMMARY | 2025-07-04 11:25 | XMS_ITS | Clinical Summary ---
Author Organization [facility] Address [address] [facility] [place] [address] Care Team Providers Care Coil Strapper Name Role Phone Unavailable Primary Care Provider Unavailabl e Source Comments The following information is NOT included in Care Everywhere downloads:Psychiatric notes, ECG results, Cardiac Rehab notes, Pulmonary Function notes, data from SmartForms (includes but not limited toPregnancy data,audiograms, eye exams, pre-surgical evaluation notes, well-child exam data).[facility] Social History Tobacco UseTypesPacks/DayYears UsedDateSmoking Tobacco: Never Assessed CommentsUnknownSex and Gender InformationValueDate RecordedSex Assigned at Not on fileLegal SavQlstdy87/18/2025 4:12 PM EDTGender IdentityNot on fileSexual OrientationNot on file Plan of Treatment Health MaintenanceDue DateLast DoneCommentsTdap Kwuvzvo7710/06/1960Hepatitis A (HAV) Vaccine (optional start 19+ years)1961Tetanus (Td or Tdap) Booster 2Pneumococcal Vaccine(s) (50+ yrs) (1 of 1 - PCV)1992Shingles (RZV) Vaccine (1 of 2)1992Hepatitis B (HBV) Vaccine (optional start 60+ years)2002Bone Oqinzhleklqw10/26/2008RSV vaccine (adult) (1 - 1-dose 75+ series)2017COVID-19 Vaccine (1 - 2024- season)2025Influenza Vaccine (#1)2025Pap SmearDiscontinued
--- OUTSIDE RECORDS SUMMARY | 2025-07-04 11:25 | XMS_ITS | Clinical Summary ---
Author Organization [facility] Address [address] [place] [address] Care Team Providers Care Sleep Scientist Name Role Phone Gil Blake MD Primary Care Provider [phone] Allergies Active AllergyReactionsCriticalityNoted DateCommentsCefdinirOther: See Comments, Hdadwxwg11/03/2023CiprofloxacinOther: See Mooebopu21/19/2018 tendon issues Oxycodone-AcetaminophenIntolerance,GI Upset03/31/2013TramadolMental Status Hfztis5611/09/2022 Medications MedicationSigDispense QuantityRefillsLast FilledStart DateEnd DateStatus amLODIPine (NORVASC) 5 mg tablet Take by mouth once daily.Active metFORMIN (GLUCOPHAGE) 500 mg tablet Take 500 mg by mouth twice daily with meals.Active albuterol (PROVENTIL) 2.5 mg /3 mL (0.083 %) nebulizer solution Use 2.5 mg via nebulizer as needed. Active simvastatin (ZOCOR) 20 mg tablet Take 40 mg by mouth daily at bedtime. Cut in half Active Mjbff-8-ZEX-EPA-Fish Oil 1,000 mg (120 mg-180 mg) cap Take 2 g by mouth twice daily.Active isosorbide mononitrate ER (IMDUR) 60 mg 24 hr tablet Take 60 mg by mouth twice daily. Active levothyroxine (SYNTHROID) 112 mcg tablet Take 125 mcg by mouth once daily. 12/08/2016Active aspirin, enteric coated (ASPIRIN, ENTERIC COATED) 81 mg EC tablet Take 81 mg by mouth once daily.Active BREO ELLIPTA 100-25 mcg/dose inhaler Inhale 1 Inhalation as instructed once daily.08/21/2017Active citalopram (CELEXA) 20 mg tablet Active apixaban (ELIQUIS) 2.5 mg tab(s) Take 5 mg by mouth twice daily. Active hydrALAZINE (APRESOLINE) 100 mg tablet Take 100 mg by mouth three times daily. Active METOPROLOL SUCCINATE ORAL 200 mg.Active furosemide (LASIX) 20 mg tablet Take 40 mg by mouth twice daily.Active acetaminophen (TYLENOL EXTRA STRENGTH) 500 mg tablet Take 2 tablets by mouth every 6 hours as needed for Pain. 60 tablet 04/30/2020Active Additional Information Patient taking differently: 650 mgORAL EVERY 6 HOURS NEEDED, pain, Reason: Dosage Adjustment, Reported on 02/14/2023 sucralfate (CARAFATE) 1 gram tablet Take 1 g by mouth four times daily.Active liothyronine (CYTOMEL) 5 mcg tablet Take 5 mcg by mouth once daily.Active potassium chloride 20 mEq TbER TAKE 1 TABLET BY MOUTH THREE TIMES A DAY DO NOT CRUSH, CHEW, OR SPLIT.08/24/2022 Active meloxicam (MOBIC) 15 mg tablet Take 15 mg by mouth once daily.11/02/2022ctive cholecalciferol (VITAMIN D-3) 5,000 unit tab Take 5,000 Units by mouth once daily.Active febuxostat (ULORIC) 40 mg tab Take 1 tablet by mouth every afternoon.06/09/2023ctive predniSONE (DELTASONE) 5 mg tablet TAKE 6 TABLETS ON DAYS 1-3 DIRECTED AND DECREASE BY 1 TAB EVERY 3 DAYS 06/08/2023ctive anastrozole (ARIMIDEX) 1 mg tablet Take 1 tablet by mouth once daily. 90 tablet 1:44 PM EST5Active Active Problems ProblemNoted DateDiagnosed DateStage 3a chronic kidney dzyzoak9102/14/2023VAIN II (vaginal intraepithelial neoplasia grade II)10/13/2017 Overview (10/13/2017): Added automatically from request for surgery [id number] Vaginal nqfhyx2801/20/2017Essential ylgaexcguqiw09/08/2017Type 2 diabetes mellitus without complication, without long-term current use of kjlkyrx6201/16/2017 Ebleqzcorlfflm32/08/1635Jvbwcjbxzbxs32/08/2017Atherosclerosis of [place] coronary artery of [place] heart without angina iywkhvwm27/08/2017S/P coronary artery stent basxooupb63/08/2017Moderate smoker (20 or less per day)01/16/2017PAD (peripheral artery disease)01/16/2017HypertensionDM type 2 (diabetes mellitus, type 2) Immunizations ImmunizationAdministration DatesNext Dueinfluenza (HD-IIV3) vaccine, age 65+ yr, high dose, trivalent, PF (FLUZONE HIGH-DOSE)06/07/2017,06/29/2015,06/23/2014 influenza (HD-IIV4) vaccine, age 65+ yr, high dose, quadrivalent, PF (FLUZONE HIGH-DOSE)07/01/2021influenza (aIIV3) vaccine, age 65+ yr, trivalent, PF (FLUAD) 06/10/2020influenza vaccine, whole virus06/27/2007pneumococcal polysaccharide (PPV23) vaccine, 23 valent (PNEUMOVAX 23)01/19/2017,06/15/2010 Family History Medical HistoryRelationCommentsArthritisFatherAsthmaFatherCancerFather HypertensionFatherheart diseaseFatherHyperlipidemiaMotherHypertensionMother cerebrovascular accident hypothyroidMotherheart diseaseMothernon-insulin dependent diabetes mellitusMotherBreast CancerOtherBreast CancerSisterRelation StatusCommentsFatherMotherOtherSister Social History Tobacco UseTypesPacks/DayYears UsedDateSmoking Tobacco: FormerCigarettes0.550 06/28/1968 - 06/28/2018Passive Smoke Exposure: PastSmokeless Tobacco: Never Tobacco Cessation:Counseling Given: Not Answered Alcohol UseStandard Drinks/WeekCommentsNo0 (1 standard drink = 0.6 oz pure alcohol)PHQ-2AnswerDate RecordedPHQ-2 rwdef3263Area Deprivation Index AnswerDate RecordedNational Score (1-100), lower number is lower risk78 02/14/2023State Score (1-10), lower number is lower lrxd581/ata from: https://www.neighborhoodatlas.medicine.[facility].edu/. Last address used for [address] [place] [address]/14/2023CommentsNoSex and Gender Information ValueDate RecordedSex Assigned at BirthNot on fileLegal NxfWpxsxz04/27/2017 11:34 AM EDTGender IdentityNot on fileSexual OrientationNot on file Last Filed Vital Signs Vital SignReadingTime TakenCommentsBlood Jstppiio223/63010/08/2024 1:02 PM EST Bgvpg508010/08/2024 1:02 PM AOVIxdlammrici26.2 ??C (97.2 ??F)10/08/2024 1:02 PM ESTRespiratory Nsoy859410/08/2024 1:02 PM ESTOxygen Lhjxyqgymc99%10/08/2024 1:02 PM ESTInhaled Oxygen Concentration--Mvengs06.5 kg (148 lb 13 oz)10/08/2024 1:02 PM SPIScggut189.9 cm (5' 0.98 )10/08/2024 1:02 PM ESTBody Mass Index28.13 10/08/2024 1:02 PM EST Plan of Treatment Health MaintenanceDue DateLast DoneCommentsDiabetic Foot Exam3Dilated Retinal Exam1952Urine Albumin:Creatinine Ratio3Anxiety Screening 1960epression Ikenundjv25/26/1961LDL Ccebkbnfick71/26/1961TaP,Tdap,Td Vaccine (1 - Tdap)1961hingrix Vaccine (1 of 2)1992Medicare Annual Wellness Visit09/11/2007one Density Kmeahrvfe57/26/2008RSV Vaccine (1 - 1-dose 75+ series)2017Pneumococcal Vaccine: 50+ (2 of 2 - PCV)01/19/2018 01/19/2017, 06/15/20106776AnZ3E83///Advance Directive Discussion 5Covid-19 Vaccine ( - season)/06/2021, 11/06/2020, 10/09/2020Influenza Vaccine (#1)/, 06/10/2020, 06/07/2017, Additional history exists Medical Devices ImplantedTypeAreaManufacturerDevice IdentifierShelf Expiration DateModel / Serial / LotIntraocular LensIntraocular LensEye - LensStentStentChest Procedures Procedure NamePriorityDate/TimeAssociated DiagnosisCommentsHEMOGLOBIN H0DBhpexoo 04/28/2020 1:36 PM EDT Type 2 diabetes mellitus with unspecified complications (HCC) Pre-op evaluation from Last 3 Months or Most Recently Relevant to Health Maintenance Results * (ABNORMAL) HGB A1C (04/28/2020 1:36 PM EDT)ComponentValueRef RangeTest Method Analysis TimePerformed AtPathologist SignatureHemoglobin A1C6.8(H)4.3 - 5.6 % 04/28/2020 9:23 PM EDTCleveland Clinic LaboratoriesComment: [place] Diabetes Association guidelines indicate that patients with HgbA1c in the range 5.7-6.4% are at increased risk for development of diabetes, and intervention by lifestyle modification may be beneficial. HgbA1c greater or equal to 6.5% is considered diagnostic of diabetes. Estimated Average Dcybhdi112xq/dL04/28/2020 9:23 PM EDTCOur Lady of Mercy Hospital LaboratoriesComment: eAG: (Estimated average glucose) is a calculated value from HgbA1c and is order entry representative of the average blood glucose level in the last 2-3 month period. Specimen (Source)Anatomical Location / LateralityCollection Method / Volume Collection TimeReceived TimeBlood specimen (specimen)WHOLE BLOOD SPECIMEN / Dkxhkvc7904/28/2020 1:36 PM EDT04/28/2020 1:38 PM EDT Narrative Authorizing ProviderResult TypeResult StatusAndping Balderrama MDLABORATORYFinal Result Performing OrganizationAddressCity/State/ZIP CodePhone Number [facility] [address] [place] [address] [facility] [address] [place] [address] from Last 3 Months or Most Recently Relevant to Health Maintenance Insurance Advance Directives TypeDate RecordedPatient RepresentativeExplanationAdvance Directive(s)01/16/2017 3:59 PM Care Teams Team MemberRelationshipSpecialtyStart DateEnd Gil Blake MD PCP - GeneralFamily Medicine01/05/17
--- NOTE | 2025-07-04 11:29 | XR_ITS ---
The [address] [address] Patient Name: OSCAR MCLEOD MRN: [id number] date: 1940 Sex: F Assigned Patient Location: [facility] Current Patient Location: [facility] Accession/Order Number: [id number] Exam Date: 07/04/2025 11:45 Report Date: 07/04/2025 20:26 At the request of: MATEUS PERRY MD Procedure: XR hip BI w PEL 1V ADULT PELVIS WITH BILATERAL HIPS - 5 views total CLINICAL HISTORY: back pain COMPARISON: 03/21/2025 FINDINGS: Negative acute osseous abnormality. Moderate joint space narrowing both hips. Moderate degenerative changes both sacroiliac joints. Moderate retained stool rectosigmoid junction may represent fecal impaction and/or constipation. Degenerative changes lower lumbar spine. XR/XR hip BI w PEL 1V IMPRESSION: NO ACUTE PLAIN FILM FINDINGS. MODERATE DEGENERATIVE CHANGES Impression dictated by: Duong Nowak M.D. 07/04/2025 8:26 PM Dictation Location: [place] [address] Electronically authenticated by: [id number] Y Date: 07/04/2025 20:26
--- NOTE | 2025-07-04 11:29 | XR_ITS ---
The [place] [id number] Patient Name: OSCAR MCLEOD MRN: [id number] date: 1940 Sex: F Assigned Patient Location: [facility] Current Patient Location: Accession/Order Number: [id number] Exam Date: 07/04/2025 11:45 Report Date: 07/05/2025 09:07 At the request of: MATEUS PERRY MD Procedure: XR knee DAVID 3V 3 views both knees HISTORY: Fell June 12. Bilateral knee pain Right vascular stent present. Atherosclerosis. Adequate bony alignment without acute displaced fracture. No significant joint effusion. Extensive medial left knee degeneration. Bilateral patellar enthesophytes. Unremarkable soft tissues. XR/XR knee DAVID 3V IMPRESSION: No acute displaced fracture. Impression dictated by: Sudhir Garrett M.D. 07/05/2025 9:07 AM Dictation Location: [facility] Electronically authenticated by: [id number] Y Date: 07/05/2025 09:07
--- NOTE | 2025-07-04 11:29 | XR_ITS ---
The [address] [address] Patient Name: OSCAR MCLEOD MRN: [id number] date: 1940 Sex: F Assigned Patient Location: [facility] Current Patient Location: [facility] Accession/Order Number: [id number] Exam Date: 07/04/2025 11:45 Report Date: 07/04/2025 21:24 At the request of: MATEUS PERRY MD Procedure: XR lumbar spine min 4V LUMBAR SPINE - 5 views CLINICAL HISTORY: back pain COMPARISON: CT lumbar spine 03/10/2025 FINDINGS: Straightening. Multilevel disc space narrowing and facet arthropathy. Multilevel anterolisthesis L2 on L3, L3-4 L4-5 identified measuring up to 2 to 3 mm. Disc space narrowing greatest L2-L3. Moderate disc space narrowing elsewhere. Multilevel facet arthropathy. Vertebral heights maintained. There are pacemaker leads projecting overlying the cardiac shadow. XR/XR lumbar spine min 4V IMPRESSION: NO ACUTE BONY INJURY. OSTEOPENIA AND MULTILEVEL DEGENERATIVE CHANGES. OVERALL FINDINGS APPEAR SIMILAR TO THE RECENT PERFORMED CT LUMBAR SPINE. Impression dictated by: Duong Nowak M.D. 07/04/2025 9:24 PM Dictation Location: [place] [address] Electronically authenticated by: [id number] Y Date: 07/04/2025 21:24
--- OUTSIDE RECORDS SUMMARY | 2025-07-04 11:33 | XMS_ITS | CCD ---
Author Organization [facility] Care Team Providers Care Ship Scraper Name Role Phone Mateus Perry MD Primary Care Provider Mateus Perry Primary Care Physician Mateus Perry MD Primary Care Provider Mateus Perry MD Primary Care Provider [phone] MD Mateus Perry Primary Care Provider MD Christiano Gonzales Attending Provider [phone] Christiano Gonzales Unavailable Millie Storm Unavailable SONALI [...] Unavailable HOY ., DR IGNACIO Consulting Unavailable DALLAS, DR JUDSON Plunkett Consulting Unavailable MISC, DR [...] HANK, SONALI Consulting Unavailable HOY ., DR IGNCAIO Consulting Unavailable HOY ., DR IGNACIO Admitting [...] HOY ., DR IGNACIO Primary Care Unavailable DALLAS, DR JUDSON Plunkett Consulting Unavailable NILL ., DR BARRIENTOS Consulting Unavailable KRISTIN JAQUEZ Consulting Unavailable SHARP, CARLOS Consulting Unavailable LEANA HERNANDEZ Consulting Unavailable HOY ., DR IGNACIO Admitting Unavailable HOY ., DR IGNACOI Attending Unavailable HOY ., DR IGNACIO Primary [...] Unavailable HOY ., DR IGNACIO Consulting Unavailable DALLAS, DR JUDSON Plunkett Consulting Unavailable HOY ., DR IGNACIO Primary Care Unavailable CARROLL, MIK Admitting Unavailable CARROLL, MIK Attending Unavailable MIK HODGES Consulting Unavailable HILL [...] Unavailable HOY ., DR IGNACIO Consulting Unavailable NILL, Iliana R Attending Unavailable NILL, Iliana R Attending Unavailable NILL, Iliana R Attending Unavailable NILL, Iliana R Attending Unavailable NILL, Iliana Ramirez Attending Unavailable NILL, Iliana Ramirez Attending Unavailable HoyMateus Referring Unavailable NILL, Iliana Ramirez Attending Unavailable LUTMAN V, EMMA Admitting Unavailabl e LUTMAN V, CHARANJITER Attending Unavailabl e MATEUS PERRY Primary Care Unavailable BARBARA BRUSHYSSA Referring Unavailable MATEUS PERRY Primary Care Unavailable MATEUS PERYR Primary Care Unavailable LATONIA BRUSH Referring Unavailable MD Mateus Perry Primary Care Provider FERNY Mathews Attending Provider [phone] MD Mateus Perry Primary Care Provider [phone] FERNY Mathews Attending Provider Hoy MD, Mateus M Primary Care Provider [phone] Mateus Perry MD M Primary Care Provider [phone] VAIBHAV ASHTON Attending Unavailable WALLACE STONE Referring Unavailable HOY, MATEUS M Primary Care Unavailable HOY, MATEUS M Primary Care Unavailable Mateus Perry MD M Primary Care Provider Christiano Mcdonnell MD Attending Provider [phone] Mateus Perry MD Primary Care Provider Christiano Mcdonnell MD Attending Provider PEYMAN HENSLEY Attending Unavailable PEYMAN HENSLEY Attending Unavailable PEYMAN HENSLEY Attending Unavailable PEYMAN HENSLEY Attending Unavailable Mateus Perry MD M Primary Care Provider Christiano Mcdonnell MD Attending Provider [phone] Christiano Mcdonnell Attending Unavailable Mcdonnell, Christiano Admitting Unavailable Hoy, Mateus M Primary Care Unavailable Mcdonnell, Christiano Admitting Unavailable Mcdonnell, Christiano Attending Unavailable Hoy, Mateus M Primary Care Unavailable Mcdonnell, Christiano Admitting Unavailable Mcdonnell, Christiano Attending Unavailable Hoy, Mateus M Primary Care Unavailable Mcdonnell, Christiano Attending Unavailable Mcdonnell, Christiano Admitting Unavailable Hoy, Mateus M Primary Care Unavailable Mcdonnell, Christiano Attending Unavailable Mcdonnell, Christiano Admitting Unavailable Hoy, Mateus M Primary Care Unavailable CONCHABRIAN Altamirano Referring Unavailable CONCHA, BRIAN Referring Unavailable CONCHA, BRIAN Referring Unavailable MADDIE, LINSEY Referring Unavailable CONCHA, BRIAN Referring Unavailable CONCHA, BRIAN Referring Unavailable MADDIE, LINSEY Referring Unavailable CONCHA, BRIAN Admitting Unavailable CONCHA, BRIAN Attending Unavailable CONCHA, BRIAN Admitting Unavailable CONCHA, BRIAN Attending Unavailable CONCHA, BRIAN Attending Unavailable CONCHA, BRIAN Attending Unavailable CONCHA, BRIAN Referring Unavailable CONCHA, BRIAN Referring Unavailable CONCHA, BRIAN Attending Unavailable MICHAELRENEE Referring Unavailable CONCHA, BRIAN Attending Unavailable MICHAELRENEE Attending Unavailable CONCHA, BRIAN Attending Unavailable CONCHA, BRIAN Attending Unavailable CONCHA, BRIAN Referring Unavailable CONCHA, BRIAN Referring Unavailable CONCHA, BRIAN Referring Unavailable CONCHA, BRIAN Referring Unavailable CONCHA, BRIAN Referring Unavailable LINSEY PERKINS Referring Unavailable BRIAN KERN Referring Unavailable BRIAN KERN Referring Unavailable BRIAN KERN Attending Unavailable Mateus Perry MD Primary Care Provider Allergies Allergy ClassificationReported Allergen(s)Allergy TypeDate of OnsetReaction(s) Facility (20 sources)Acetaminophen / oxyCODONE; Translations: [OXYCODONE-ACETAMINOPHEN] Drug Fqnkohs32-86-4365Jvfds (See Comments), Intolerance, [facility])Ciprofloxacin; Translations: [ciprofloxacin]Drug Tcbuods86-56-7231 Hives, Urticaria (disorder), Other: See CommentsMer[facility] (20 sources)oxyCODONE; Translations: [oxycodone]Drug Cbrfhfz65-19-2137Wkmo, Itching (finding)[facility] (20 sources)cefdinir; Translations: [cefdinir]Drug Uodvazh03-39-0427Tsmsmqrg (disorder), Other: See Comments, Vomiting, Other (See Comments)[facility] [place] (18 sources)traMADol; Translations: [TRAMADOL]Drug Matusxi81-05-0975Kisglx Status Change, Other (See Comments)[facility] (1 source)CefuroximeDrug Lvkhibs29-82-3184HKU [facility] Work Phone: (9 sources)Acetaminophen; Translations: [acetaminophen]Drug Prhbfrf18-57-6301 [facility] (2 sources)Acetaminophen / oxyCODONEDrug Xnzdfwy27-99-2888[facility] (1 source)CefuroximeDrug Jzijzhq41-56-2134PtgWvumedicine [facility] (2 sources)CiprofloxacinDrug AllergyWvumedicine [facility] (1 source)cefdinirDrug Fmznvxn37-86-1653NvpzjioxxMartin [facility] (1 source)CiprofloxacinDrug Oastizg26-86-9365GzbczqotcMartin Memorial Hospital Rep[facility] (1 source)oxyCODONEDrug Mixdvnx95-50-3089UquflwrjwMartin [facility] Hospital Rep[facility] (1 source)traMADolDrug Ticebjd69-17-9574IiauxsqllMartin Memorial Hospital Repository Medications Current Medications MedicationDrug Class(es)DatesSig (Normalized)Sig (Original)acetaminophen 500 mg oral tablet (20 sources)Start: 04-30-2020 End: 80-47-0539lkza 2 tablets by mouth every six hours as neededacetaminophen (TYLENOL EXTRA STRENGTH) 500 mg tablet Take 2 tablets by mouth every 6 hours as needed for Pain. 60 tablet 04/30/2020 Active End: 52-60-0386wvts 2 tablets by mouth every four hours as needed for pain acetaminophen (TYLENOL) 325 MG tablet Take 650 mg by mouth every 4 hours as needed for Pain 0 06/28/2022 Discontinued (Stop Taking at Discharge) End: 13-58-6155jjuu 1 tablet by mouth every four hours as neededAcetaminophen (TYLENOL ARTHRITIS PAIN PO) Take 1 tablet by mouth every 4 hours as needed 0 06/28/2022 Discontinued (Stop Taking at Discharge)Comment on above:Take 2 tablets by mouth every 6 hours as needed for Pain.acetaminophen 325 mg / HYDROcodone bitartrate 5 mg oral tablet (1 source)Opioid AgonistStart: 12-13-2021 End: 99-05-3991LEFQJxejrsq-acetaminophen (NORCO) 5-325 MG per tablet Indications: Post-operative state Take 1 tablet by mouth every 4 hours as needed for Pain for up to 7 days. Intended supply: 7 days. Take lowest dose possible to manage pain 10 tablet 0 12/13/2021 12/20/2021 Activealbuterol 0.83 mg/ml inhalation solution (20 sources)beta2-Adrenergic AgonistStart: 16-12-1932bqyu 2.5 mg by inhalation four times dailyalbuterol 0.083% Inh Crys 3 mL 2.5 mg, 3 mL, NEB, QID, Refill(s) 0 Start Date: 09/02/22 Status: OrderedStart: 91-01-4659tgzx 1.25 mg by inhalation every four to six hours as neededStart: 57-17-1540hapb 1 puff(s) by inhalation every six hours as neededalbuterol (2.5 MG/3ML) 0.083% nebulizer solution USE 1 VIAL IN NEBULIZER 4 TIMES DAILY NEEDED Activealbuterol (PROVENTIL) 2.5 mg /3 mL (0.083 %) nebulizer solution Use 2.5 mg via nebulizer as needed.ActiveAlbuterol Sulfate (2.5 MG/3ML) 0.083% 3 ml Inhalation Three times a day Active End: 18-99-1714JHMIHBUHZ SULFATE (VENTOLIN INHALATION) Inhale 2 Puffs as instructed as needed. 0 02/14/2023 Discontinued (Discontinued by Patient)take 2 puff(s) by inhalation every six hours as needed for wheezingalbuterol sulfate HFA (PROVENTIL;VENTOLIN;PROAIR) 108 (90 Base) MCG/ACT inhaler Inhale 2 puffs intothe lungs every 6 hours as needed for Wheezing 0 ActiveALBUTEROL SULFATE (VENTOLIN INHALATION) Inhale 2 Puffs as instructed as needed. 0 ActiveComment on above:Use 2.5 mg via nebulizer as needed. Inhale 2 Puffs as instructed as needed. amLODIPine 5 mg oral tablet (20 sources)Dihydropyridine Calcium Channel BlockerStart: 30-35-6690sklq 1 tablet by mouth once dailyamLODIPine (NORVASC) 5 MG tablet Take 5 mg by mouth daily 0 04/05/2021 ActiveStart: 42-89-6791metq 5 mg by mouth once dailyStart: 78-90-9162ikyi 5 mg by mouth once dailyAmlodipine Active 5 MG PO Daily April 25, 2019 12:00amComment on above:Take by mouth once daily.amoxicillin 875 mg / clavulanate 125 mg oral tablet (7 sources)Penicillin-class AntibacterialStart: 22-74-2399tghg 1 tablet by mouth once dailyanastrozole 1 mg oral tablet (20 sources)Aromatase InhibitorStart: 11-09-2022 End: 28-94-1236syif 1 tablet by mouth once dailyAnastrozole ActiveComment on above:Take 1 tablet by mouth once daily.apixaban 5 mg oral tablet (20 sources)Factor Xa InhibitorStart: 10-42-6748djjj 1 tablet by mouth at bedtimeEliquis 5 MG tablet TAKE 1 TABLET BY MOUTH IN THE MORNING AND AT BEDTIME 04/08/2024 Activetake 2 tablets by mouth twice dailyapixaban (ELIQUIS) 2.5 mg tab(s) Take 5 mg by mouth twice daily. ActiveComment on above:Take 5 mg by mouth twice daily. aspirin 81 mg chewable tablet (20 sources)Platelet Aggregation Inhibitor, Nonsteroidal Anti-inflammatory Drug Start: 45-30-9901nlubdyt 81 mg Chew Tab 81 mg = 1 tab(s), Chewed, Daily, Refills(s) 0 Start Date: 09/02/22 Status: OrderedStart: 83-11-7552Ndkqvda on above:Take 81 mg by mouth once daily.bacitracin 0.5 unt/mg / polymyxin b 10 unt/mg topical ointment (2 sources)Polymyxin-class AntibacterialStart: 06-28-2022 End: 42-66-8305upislhgbmy-polymyxin b (POLYSPORIN) 500-07575 UNIT/GM ointment Apply topically 2 times daily. 15 g 1 06/28/2022 06/28/2022 Discontinued (REORDER)cholecalciferol 0.125 mg oral tablet (12 sources)Vitamin DStart: 42-18-0004qcza 1 tablet by mouth once dailytake 1 tablet by mouth once dailycholecalciferol (VITAMIN D-3) 5,000 unit tab Take 5,000 Units by mouth once daily. ActiveComment on above:Take 5,000 Units by mouth once daily.1 ml diphenhydrAMINE hydrochloride 50 mg/ml cartridge (1 source)Histamine-1 Receptor AntagonistStart: 12-13-2021 End: 28-43-0935htlbzchtfyCJQUN (BENADRYL) injection 12.5 mgdocosahexaenoic acid 120 mg / eicosapentaenoic acid 180 mg oral capsule (9 sources)take 1 capsule by mouth twice dailyOmega 3 1000 MG CAPS Take 1,000 mg by mouth 2 times daily 0 Active End: 45-27-2621vhpv 1 capsule by mouth once dailyOmega-3 Fatty Acids (FISH OIL OMEGA-3) 1000 MG CAPS Take 1,000 mg by mouth daily 0 05/12/2021 Discontinued docusate sodium 50 mg / sennosides, fci 8.6 mg oral tablet (2 sources)Start: 06-28-2022 End: 18-47-2189mecv 8.6-50 mg by mouth once as neededsenna-docusate (PERICOLACE) 8.6-50 MG per tablet Take 1 tablet by mouth 2 times daily as needed for Constipation 60 tablet 1 06/28/2022 06/28/2022 Discontinued (REORDER) empagliflozin 10 mg oral tablet (18 sources)Sodium-Glucose Cotransporter 2 InhibitorStart: 45-42-6073rxyt 10 mg by mouth in the morningJardiance 10 MG Take 10 mg by mouth in the morning. 12/11/2023 Activefebuxostat 40 mg oral tablet (20 sources)Xanthine Oxidase InhibitorStart: 98-77-1976tqxb 1 tablet by mouth once dailyComment on above:Take 1 tablet by mouth every afternoon.2 ml fentaNYL 0.05 mg/ml injection (6 sources)Opioid AgonistStart: 48-76-5703ahnqvIZR (SUBLIMAZE) injection 50 mcg Start: 99-85-4979gbpruUKO (SUBLIMAZE) injection 25 mcgStart: 76-90-4109lwzyfOOF (SUBLIMAZE) injection 50 mcgStart: 02-58-3931zilvpULN (SUBLIMAZE) injection 25 mcgferrous sulfate 325 mg oral tablet (18 sources)Start: 68-57-6986jcto 1 tablet by mouth in the morningferrous sulfate 325 (65 Fe) MG tablet Take 325 mg by mouth in the morning and 325 mg in the evening. 04/19/2024 ActiveFish Oils (10 sources)Start: 56-32-6188ryzc 2 capsules by mouth once dailyFish Oil 1000 mg oral capsule 2,000 mg = 2 cap(s), Oral, Daily, Refills(s) 0 Start Date: 09/02/22 Status: Orderedtake 1 capsule by mouth once dailyFish Oil 1000 MG 1 capsule Orally Once a day for 30 day(s) Activefluconazole 100 mg oral tablet (1 source)Azole AntifungalStart: 10-77-6189xuvy 1 tablet by mouth once daily fluconazole (DIFLUCAN) 100 MG tablet TAKE 1 TABLET BY MOUTH EVERY DAY 0 12/15/2021 Kjbawq81 actuat fluticasone furoate 0.1 mg/actuat / vilanterol 0.025 mg/actuat dry powder inhaler (11 sources)Corticosteroid, beta2-Adrenergic AgonistStart: 81-68-8410SCII ELLIPTA 100-25 mcg/dose inhaler Inhale 1 Inhalation as instructed once daily. 08/21/2017 ActiveComment on above:Inhale 1 Inhalation as instructed once daily. furosemide 40 mg oral tablet (20 sources)Loop DiureticStart: 16-42-7381xoyf 1 tablet by mouth every other day Start: 56-85-0513pcwj 1 tablet by mouth twice dailyLasix 20 mg Tab 20 mg = 1 tab(s), Oral, BID, Refills(s) 0 Start Date: 09/02/22 Status: Orderedtake 2 tablets by mouth twice dailyfurosemide (LASIX) 20 mg tablet Take 40 mg by mouth twice daily. ActiveLasix Activetake 1 tablet by mouth every other dayfurosemide (LASIX) 40 MG tablet Take 40 mg by mouth every other day 0 Activefurosemide (LASIX) 20 MG tablet Take by mouth every other day 0 ActiveComment on above:Take 20 mg by mouth twice daily.Take 40 mg by mouth twice daily.glimepiride 4 mg oral tablet (20 sources)SulfonylureaStart: 04-25-2019 End: 84-57-0430rikk 1 tablet by mouth twice dailytake 1 tablet by mouth every twenty-four hoursGlimepiride 4 MG 1 tablet with breakfast or the first main meal of the day Orally Once a day ActiveComment on above:Take 4 mg by mouth twice daily with meals. hydrALAZINE hydrochloride 100 mg oral tablet (20 sources)Arteriolar VasodilatorStart: 46-82-2980zkms 1 tablet by mouth three times dailyComment on above:Take 100 mg by mouth three times daily. hydroCHLOROthiazide 12.5 mg oral tablet (20 sources)Thiazide DiureticStart: 45-69-7191hmen 1 tablet by mouth twice daily hydrochlorothiazide 12.5 mg Tab 12.5 mg = 1 tab(s), Oral, BID, Refills(s) 0 Start Date: 09/02/22 Status: OrderedStart: 03-20-2021 End: 46-96-1177duemyQZIRWCzjwonqtm (HYDRODIURIL) 12.5 MG tablet Take by mouth every other day On days taking-takesmed twice per day 0 03/20/2021 05/12/2021 Discontinued (Therapy completed)Start: 04-25-2019 End: 42-61-7059wswi 1 tablet by mouth once dailyHydrochlorothiazide 12.5 mg Tablet Discontinued 12.5 MG PO Daily April 25, 2019 12:00am November 29, 2022 9:20amhydroCHLOROthiazide (HYDRODIURIL) 25 MG tablet Take 12.5 mg by mouth every other day 0 Active End: 57-46-7461dmxn 2 tablets by mouth every other dayhydroCHLOROthiazide (HYDRODIURIL) 12.5 MG tablet hydrochlorothiazide 12.5 mg tablet Take 2 tablets e very other day by oral route for 30 days. 0 05/12/2021 DiscontinuedComment on above:Take 12.5 mg by mouth once daily. 3 ml insulin glargine 100 unt/ml pen injector (7 sources)Insulin AnalogStart: 79-35-5914avzmnt 10 [IU] by subcutaneous injection once daily in the eveninginsulin lispro 100 unt/ml injectable solution (1 source)Insulin AnalogStart: 53-68-8383Lkekffv Lispro (Humalog U-100 Insulin) 100 unit/mL solution (6 sources)Start: 16-23-4107Mgkkean Lispro (Humalog U-100 Insulin) 100 unit/mL solution Active 1 sliding scale dose SUBCUT As Directed December 10, 2023 11:00pm Start: 60-44-5324Nbhdwbw Lispro (Humalog U-100 Insulin) 100 unit/mL solution Active 1 sliding scale dose SUBCUT As Directed December 11, 2023 12:00am24 hr isosorbide mononitrate 60 mg extended release oral tablet (20 sources)Nitrate VasodilatorStart: 60-26-7891qnpi 1 tablet by mouth once daily in the morningisosorbide mononitrate 60 mg ER Tab 60 mg = 1 tab(s), Oral, qAM, Refills(s) 0 Start Date: 09/02/22 Status: OrderedStart: 86-72-8958sezw 1 tablet by mouth twice daily, then take 1 tablet by mouth every twenty-four hours isosorbide mononitrate ER (IMDUR) 60 mg 24 hr tablet Take 60 mg by mouth twice daily. ActiveComment on above:Take 60 mg by mouth twice daily. levothyroxine sodium 0.112 mg oral tablet (20 sources)l-ThyroxineStart: 23-26-7866aigh 1 tablet by mouth once daily levothyroxine 112 mcg (0.112 mg) Tab 112 mcg = 1 tab(s), Oral, Daily, Refills(s) 0 Start Date: 09/02/22 Status: OrderedStart: 69-88-6075skho 1 tablet by mouth once dailyStart: 10-50-4591vfuolpavchvfk (SYNTHROID) 112 mcg tablet Take 125 mcg by mouth once daily. 12/08/2016 Active End: 35-95-3128ilwo 1 tablet by mouth once dailylevothyroxine (SYNTHROID) 125 MCG tablet Take 125 mcg by mouth Daily 0 05/12/2021 DiscontinuedComment on above:Take 125 mcg by mouth once daily. lidocaine 0.05 mg/mg topical ointment (1 source)Antiarrhythmic, Amide Local AnestheticStart: 06-15-2021 End: 79-52-8334pvjadyxle (XYLOCAINE) 5 % ointment Apply topically as needed to the affected area. 50 g 1 06/15/2021 06/15/2021 Discontinued (Stop Taking at Discharge)liothyronine sodium 0.005 mg oral tablet (20 sources)l-TriiodothyronineStart: 39-36-0351yqss 1 tablet by mouth once daily Start: 51-37-2911cinx 2 tablets by mouth once dailyCytomel 5 mcg Tab 10 mcg = 2 tab(s), Oral, Daily, Refills(s) 0 Start Date: 09/02/22 Status: Orderedtake 2 tablets by mouth once dailyliothyronine (Cytomel) 5 MCG tablet Take 2 tablets by mouth Daily Activetake 1 tablet by mouth every twenty-four hoursLiothyronine Sodium 5 MCG 1 tablet on an empty stomach Orally Once a day ActiveComment on above:Take 5 mcg by mouth once daily.metFORMIN hydrochloride 500 mg oral tablet (20 sources)BiguanideStart: 75-88-6423fmzc 1 tablet by mouth twice dailyComment on above:Take 500 mg by mouth twice daily with meals.24 hr metoprolol succinate 200 mg extended release oral tablet (20 sources)beta-Adrenergic BlockerStart: 61-38-3705cmzk 1 tablet by mouth once daily End: 86-04-0607dryl 0.5 tablet by mouth once dailymetoprolol tartrate, short acting, (LOPRESSOR) 100 mg tablet Take 100 mg by mouth twice daily. Patient takes 1/2 tab 2x a day 0 06/20/2023 Discontinued (Duplicate Entry)take 200 mg by mouth once dailyMetoprolol Succinate 200 MG CS24 Take 200 mg by mouth daily 0 Activemetoprolol succinate ER (TOPROL XL) 200 mg 24 hr tablet metoprolol succinate ER 200 mg tablet,extended release 24 hr 0 ActiveComment on above:Take 100 mg by mouth twice daily. Patient takes 1/2 tab 2x a day metoprolol succinate ER 200 mg tablet,extended release 24 hr200 mg.nystatin 100 unt/mg topical powder (7 sources)Polyene AntifungalStart: 81-41-5186cclzrknj (MYCOSTATIN) 555260 UNIT/GM powder Apply 3 times daily. 60 g 10 06/28/2022 Activenystatin (MYCOSTATIN) 258572 UNIT/GM powder Apply topically 2 times daily as needed 0 RpbjbqCyrno-7-UEM-EPA-Fish Oil 1,000 mg (120 mg-180 mg) cap (11 sources)take 1 capsule by mouth twice ilccbOrtpk-3-PDS-EPA-Fish Oil 1,000 mg (120 mg-180 mg) cap Take 2 g by mouth twice daily. Activetake 1 capsule by mouth twice uoutoLdupa-3-QOL-EPA-Fish Oil 1,000 mg (120 mg-180 mg) cap Take 2 g by mouth twice daily. 0 ActiveComment on above:Take 2 g by mouth twice daily. Clhlw-4q-Dyb-Epa-Fish Oil (Beaman-3 Fish Oil) 300-1,000 mg Capsule (8 sources)Start: 55-88-4717Xqaxb: 03-04-3812Tmpmy-8b-Evk-Peu-Fish Oil (Beaman-3 Fish Oil) 300-1,000 mg Capsule Active 2 CAP PO Twice daily April 24, 2019 11:00pmStart: 91-12-8210Zaeyp-3p-Rke-Kiq-Fish Oil (Beaman-3 Fish Oil) 300-1,000 mg Capsule Active 2 CAP PO Twice daily April 25, 2019 12:00amondansetron 4 mg disintegrating oral tablet (14 sources)Serotonin-3 Receptor AntagonistStart: 06-71-6999xsmr 1 tablet by mouth four times dailyondansetron 4 mg Dis Tab 4 mg = 1 tab(s), Oral, QID, Refills(s) 0 Start Date: 09/02/22 Status: OrderedStart: 06-28-2022 End: 99-48-9432xuqvgvtomgt (ZOFRAN) injection 4 mgStart: 12-13-2021 End: 76-37-1890jfdxjskamkt (ZOFRAN) injection 4 mg End: 01-66-8631hxyr 1 tablet by mouth every eight hours as neededondansetron (ZOFRAN) 4 mg tablet Take 4 mg by mouth every 8 hours as needed for nausea/vomiting. 0 06/20/2023 Discontinued (Discontinued by Patient)Comment on above:Take 4 mg by mouth every 8 hours as needed for nausea/vomiting. pantoprazole 40 mg delayed release oral tablet (14 sources)Proton Pump InhibitorStart: 81-52-7598ldub 1 tablet by mouth once dailyPantoprazole [address] Tab 40 mg = 1 tab(s), Oral, Daily, Refills(s) 0 Start Date: 09/02/22 Status: OrderedStart: 09-02-2022 End: 74-47-6888thiy 1 tablet by mouth once dailyPantoprazole [address] Tab 40 mg = 1 tab(s), Oral, Daily, Refills(s) 0 Start Date: 09/02/22 Status: Ordered End: 93-32-3633mvkl 1 tablet by mouth once dailypantoprazole DR (PROTONIX) 40 mg tablet Take 40 mg by mouth once daily. 0 06/20/2023 Discontinued (Discontinued by Patient)Comment on above:Take 40 mg by mouth once daily.potassium chloride 20 meq extended release oral tablet (12 sources)Start: 03-96-8879qeew 1 tablet by mouth three times dailypotassium chloride 20 mEq TbER TAKE 1 TABLET BY MOUTH THREE TIMES A DAY DO NOT CRUSH, CHEW, OR SPLIT. 08/24/2022 Activetake 20 mEq by mouth twice dailyPOTASSIUM CHLORIDE PO Take 20 mEq by mouth 2 times daily 0 ActiveComment on above:TAKE 1 TABLET BY MOUTH THREE TIMES A DAY DO NOT CRUSH, CHEW, OR SPLIT.pramoxine hydrochloride 10 mg/ml rectal foam (2 sources)Start: 06-28-2022 End: 54-75-9132xjgmvocsa HCl (PROCTOFOAM) 1 % foam Apply to hemorrhoids and anal area for postop pain as needed 15g 0 06/28/2022 06/28/2022 Discontinued (REORDER)predniSONE 5 mg oral tablet (5 sources)Start: 13-51-8018fvoqcqDENK (DELTASONE) 5 mg tablet TAKE 6 TABLETS ON DAYS 1-3 DIRECTED AND DECREASE BY 1 TAB EVERY 3 DAYS 06/08/2023 ActiveStart: 52-15-8470mykxgqQKBV (DELTASONE) 20 MG tabletComment on above:TAKE 6 TABLETS ON DAYS 1-3 DIRECTED AND DECREASE BY 1 TAB EVERY 3 DAYSsilver sulfADIAZINE 10 mg/ml topical cream (2 sources)Sulfonamide AntibacterialStart: 06-28-2022 End: 13-23-3651tyskqa sulfADIAZINE (SILVADENE) 1 % cream Apply topically daily. 25 g 1 06/28/2022 06/28/2022 Discontinued (REORDER)simvastatin 20 mg oral tablet (20 sources)HMG-CoA Reductase InhibitorStart: 09-02-2022 End: 89-37-8430bjgz 1 tablet by mouth once daily at bedtimesimvastatin 20 mg Tab 20 mg = 1 tab(s), Oral, Once a day (at bedtime), Refills(s) 0 Start Date: 08/12 11/30 Status: OrderedStart: 81-69-3786jlzf 1 tablet by mouth once daily in the eveningsimvastatin (ZOCOR) 20 mg tablet Take 40 mg by mouth daily at bedtime. Cut in half Activetake 0.5 tablet by mouth once dailysimvastatin (ZOCOR) 40 MG tablet Take 40 mg by mouth daily 1/2 tabs 0 ActiveComment on above:Take 40 mg by mouth daily at bedtime. Cut in half 5 ml sodium chloride 9 mg/ml injection (9 sources)Start: .9 % sodium chloride infusionStart: 06-28-2022 sodium chloride flush 0.9 % injection 5-40 mLStart: 10-09-3971xrfqgd chloride flush 0.9 % injection 5-40 mLStart: .9 % sodium chloride infusion Start: 14-04-7976semjbe chloride flush 0.9 % injection 5-40 mLspironolactone 50 mg oral tablet (14 sources)Aldosterone AntagonistStart: 73-00-4569lbup 1 tablet by mouth once dailyStart: 23-93-2161ulny 0.5 tablet by mouth in the morningspironolactone (ALDACTONE) 25 MG tablet TAKE 1/2 TABLET BY MOUTH IN THE MORNING 0 09/22/2022 Activesucralfate 1000 mg oral tablet (20 sources)Aluminum ComplexStart: 37-43-2583fuvj 1 tablet by mouth at bedtime Start: 75-20-2128Pvlsyrds 1 gram Tab 1 gm = 1 tab(s), Oral, QIDACHS, Refills(s) 0 Start Date: 09/02/22 Status: OrderedSucralfate ActiveComment on above:Take 1 g by mouth four times daily.Sulfamethoxazole / Trimethoprim (2 sources)Dihydrofolate Reductase Inhibitor Antibacterial, Sulfonamide AntimicrobialBactrim Activetriamcinolone acetonide 1 mg/ml topical cream (6 sources)Corticosteroidtriamcinolone (KENALOG) 0.1 % cream Apply topically 2 times daily as needed 0 ActiveVitamin D3 (2 sources)Vitamin D3 ActiveVitamin D3 2000 intl units oral Tab (4 sources)Start: 00-53-5562qzot 1 tablet by mouth once dailyVitamin D3 2000 intl units oral Tab 50 mcg, Oral, Daily, tab(s), Refills(s) 0 Start Date: 09/02/22 Status: Ordered Completed/Discontinued Medications MedicationDrug Class(es)DatesSig (Normalized)Sig (Original)albuterol 0.833 mg/ml / ipratropium bromide 0.167 mg/ml inhalation solution (1 source)Anticholinergic, beta2-Adrenergic AgonistStart: 06-15-2021 End: 33-07-4281mdzeduypvwc-albuterol (DUONEB) nebulizer solution 1 ampulecalcium chloride 0.0014 meq/ml / potassium chloride 0.004 meq/ml / sodium chloride 0.103 meq/ml / sodium lactate 0.028 meq/ml injectable solution (3 sources)Start: 06-28-2022 End: 59-40-1898yhervgnr ringers infusionStart: 87-42-0365cjlkxhew ringers infusionStart: 52-10-8602rmjslgut ringers infusioncetirizine hydrochloride 10 mg oral capsule (16 sources)Histamine-1 Receptor AntagonistStart: 04-25-2019 End: 77-60-6264ooum 1 tablet by mouth twice dailyCetirizine (Zyrtec) 10 mg Capsule Discontinued 1 TAB PO Twice daily April 25, 2019 12:00am 2022 9:23amStart: 01-28-2019 End: 09-89-5278tboe 1 tablet by mouth twice dailycetirizine (ZYRTEC) 10 mg tablet Take 10 mg by mouth twice daily. 11 01/28/2019 06/20/2023 Discontinued (Discontinued by Patient)Comment on above:Take 10 mg by mouth twice daily. citalopram 20 mg oral tablet (19 sources)Serotonin Reuptake InhibitorStart: 01-01-2019 End: 80-95-7883lfvi 1 tablet by mouth once dailyCitalopram 20 mg Tablet Discontinued 20 MG PO Daily April 25, 2019 12:00am November 29, 2022 9:23am Start: 05-08-8225uqjzfclmhr (CELEXA) 20 mg tablet 11 01/01/2019 Activedocusate sodium 100 mg oral capsule (8 sources)Start: 04-30-2020 End: 46-80-8021ingi 2 capsules by mouth every twenty-four hours as needed docusate sodium (COLACE) 100 mg capsule Take 2 capsules by mouth at bedtime as needed (opioid-induced constipation). 60 capsule 0 04/30/2020 06/20/2023 Discontinued (Discontinued by Patient)Comment on above:Take 2 capsules by mouth at bedtime as needed (opioid-induced constipation).60 actuat formoterol fumarate 0.005 mg/actuat / mometasone furoate 0.1 mg/actuat metered dose inhaler (8 sources)Corticosteroid, beta2-Adrenergic AgonistStart: 2018 End: 34-24-2735YYOQZK 100-5 mcg/actuation inhalerlevoFLOXacin 750 mg oral tablet (10 sources)Quinolone AntimicrobialStart: 09-21-2022 End: 06-56-6326yvknIOSNohtg (LEVAQUIN) 750 mg tabletStart: 35-51-6622qwwa 1 tablet by mouth once dailylevoFLOXacin (LEVAQUIN) 500 MG tablet TAKE 1 TABLET BY MOUTH EVERY DAY 0 12/09/2021 Activetake 1 tablet by mouth once daily LEVOFLOXACIN PO Take 1 tablet by mouth daily 0 Activemeloxicam 15 mg oral tablet (16 sources)Nonsteroidal Anti-inflammatory DrugStart: 11-02-2022 End: 08-88-1771cian 1 tablet by mouth once dailyMeloxicam 15 mg tablet Discontinued 15 MG PO Daily November 29, 2022 12:00am December 11, 2023 9:24am Comment on above:Take 15 mg by mouth once daily.nitrofurantoin 5 mg/ml oral suspension (9 sources)Nitrofuran AntibacterialStart: 11-29-2022 End: 03-33-3239rrel 50 mg by mouth four times daily at mealtimeNitrofurantoin 25 mg/5 mL Suspension Discontinued 50 MG PO Four times daily November 29, 2022 12:00am December 11, 2023 9:25am must administer with a meal/foodtake 50 mg by mouth four times dailynitrofurantoin (FURADANTIN) 25 MG/5ML suspension Take 50 mg by mouth 4 times daily 0 Active Problems Active Problems Problem ClassificationProblemDateDocumented DateEpisodic/ChronicAcquired foot deformities (2 sources)Hallux valgus (acquired), left foot; Translations: [Hallux valgus (acquired)]70-79-0322RgjkorpKovmqmhx foot deformities (4 sources)Acquired deformity of toe of left foot; Translations: [Acquired deformities of toe(s), unspecified,left foot]55-71-7526LniwwqqtDtuvd bronchitis (1 source)Acute bronchitis, unspecified; Translations: [ACUTE BRONCHITIS UNSPECIFIED]Onset: 31-75-9244JoavenkkWutyzhhf reactions (1 source)Eczema; Translations: [Other specified dermatitis]EpisodicAortic; peripheral; and visceral artery aneurysms (4 sources)Femoral false qhdrygxv49-28-4147CtxkmpiSxydjx (1 source)Unspecified asthma, uncomplicated; Translations: [UNSPECIFIED ASTHMA UNCOMPLICATED]Onset: 33-65-6388TdwkgprDbtgrj of breast (20 sources)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 female breast; Translations: [Infiltrating ductcarcinoma of breast]Onset: 01-44-6874Cbpxhqd Cancer of other female genital organs (20 sources)Vaginal intraepithelial neoplasia; 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]ChronicCardiac dysrhythmias (8 sources)Paroxysmal atrial fibrillation; Translations: [Paroxysmal atrial fibrillation]Onset: 884633-89-9458QednhyhPywiueg kidney disease (13 sources)Chronic kidney disease stage 2; Translations: [Chronic kidney disease, stage 2 (mild)]Onset: 344201-74-4904CxabormMdnvpit obstructive pulmonary disease and bronchiectasis (5 sources)Chronic obstructive lung disease; Translations: [Chronic obstructive pulmonary disease, unspecified]Onset: 616672-14-7029ThjjoiyWbnduif ulcer of skin (16 sources)Ulcer of lower extremity; Translations: [Non-pressure chronic ulcer of unspecified part of left lower leg with unspecified severity]12-11-2023 ChronicConditions associated with dizziness or vertigo (4 sources)Brain stem zelephf31-63-2671NjqcgkynFlkykdijex disorders (4 sources)Presence of automatic (implantable) cardiac defibrillator; Translations: [Presence of cardiac pacemaker]Onset: 97-02-4989HdwmujzTqmxwkidjo heart failure; nonhypertensive (20 sources)Acute combined systolic and diastolic heart failure; Translations: [Chronic diastolic heart failure]Onset: 193665-28-2999CfkmpotNrqfdbwz atherosclerosis and other heart disease (16 sources)Coronary arteriosclerosis; Translations: [Coronary atherosclerosis] Onset: 264177-42-4558BxtdqyqWrlpagkt mellitus with complications (14 sources)Type 2 diabetes mellitus with diabetic chronic kidney disease; Translations: [Type 2 diabetes mellitus with diabetic peripheral angiopathy without gangrene]Onset: 28-78-0287OruryngAaggbtpi mellitus without complication (20 sources)Diabetes mellitus; Translations: [Type 2 diabetes mellitus]Onset: 743285-47-0242QdudufmGlekyet on above:Problem List clean-up per request of Phys. EHR CmteDisorders of lipid metabolism (20 sources)Hypertriglyceridemia; Translations: [Pure hypercholesterolemia] Onset: 521522-18-5965PbuahqfJjezqspwgxtfdd and diverticulitis (4 sources)Diverticular ufuuhlh25-30-5151MbwvzkkBylpkauzlz disorders (5 sources)Gastroesophageal reflux disease; Translations: [Gastro-esophageal reflux disease without esophagitis]Onset: 546196-93-4726OrplknoRujvswdky hypertension (20 sources)Hypertensive disorder; Translations: [Essential (primary) hypertension]Onset: 928939-86-7472MngaephLsdt and other crystal arthropathies (1 source)Gout, unspecified; Translations: [Gout, unspecified]Onset: 10-29-2024 ChronicHypertension with complications and secondary hypertension (2 sources)Hypertensive heart and chronic kidney disease with heart failure and stage 1 through stage 4 chronic kidney disease, or unspecified chronic kidney disease; Translations: [Hypertensive heart disease with heart failure]Onset: 85-49-1791UubgheiKhifrvs (8 sources)Pain in toe; Translations: [Tinea unguium]60-02-2931BfpkzctjOaeugapog of unspecified nature or uncertain behavior (6 sources)Neoplasm of uncertain behavior of skin; Translations: [Neoplasm of uncertain behavior of skin]23-89-7830VcwixgdwLncysbrhf or stenosis of precerebral arteries (12 sources)Carotid artery stenosis; Translations: [Occlusion and stenosis of bilateral carotid arteries]ChronicOpen wounds of extremities (10 sources)Open wound of left thigh; Translations: [Unspecified open wound, left thigh, initial encounter]53-03-1124RvlzbwjgNbks wounds of extremities (10 sources)Injury of right leg; Translations: [Unspecified open wound, right lower leg, initial encounter]56-96-7269FsdwohbuIhjcibhauaty (5 sources)Age-related osteoporosis without current pathological fracture; Translations: [AGE-REL OSTEOPOR W/OCURR PATH FX]Onset: 81-55-1071SnxfsivVjrwq aftercare (5 sources)Long-term current use of anticoagulant; Translations: [terminal operations supervisor (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]Onset: 68-38-9606KimgglzmWtdji aftercare (1 source)FPC (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; Translations: [RETIREMENT CURRNT USE ANTICOAGULANTS]Onset: 76-17-8453SlnuklyzSgxjr aftercare (1 source)FPC (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 oral hypoglycemic drugs; Translations: [WATER REGULATOR AND VALVE REPAIRER USE ORAL HYPOGLYCEMIC DX]Onset: 08-40-6640AnvjxtekPmtnd aftercare (1 source)Other terminal operations supervisor (current) drug therapy; Translations: [OTH WATER REGULATOR AND VALVE REPAIRER CURRENT DRUG THERAPY]Onset: 00-81-0422PfpukuyvMmldi bone disease and musculoskeletal deformities (4 sources)Pzwzikmqff08-15-8024QiquqibiAthcw connective tissue disease (3 sources)Other specified soft tissue disordersEpisodicOther connective tissue disease (1 source)Pain in right lower legEpisodicOther diseases of veins and lymphatics (8 sources)Vascular insufficiency; Translations: [Venous insufficiency (chronic) (peripheral)]34-19-1142JzfhfxlvOejuj female genital disorders (3 sources)Dysplasia of vagina; 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, unspecified] EpisodicOther nutritional; endocrine; and metabolic disorders (4 sources)Body mass index 30+ - wojksxp33-98-1057RkqcmewFmpat skin disorders (1 source)Localized swelling, mass and lump, lower limb, bilateral; Translations: [LOC SWELL MASS LUMP LOW LIMB DAVID]Onset: 08-66-1515BbjlahlyTwopa skin disorders (1 source)Eruption; Translations: [Rash and other nonspecific skin eruption] EpisodicPeri-; endo-; and myocarditis; cardiomyopathy (except that caused by tuberculosis or sexually transmitted disease) (2 sources)Dilated cardiomyopathy; Translations: [Dilated cardiomyopathy]Onset: 33-50-2865WdhmpudHmdhehhmzd and visceral atherosclerosis (20 sources)Atherosclerosis of arteries of the extremities; Translations: [Peripheral vascular disease]Onset: 025208-24-5218DigjrgoWgvnorb on above: Problem List clean-up per request of Phys. EHR CmteResidual codes; unclassified (12 sources)Dependence on other enabling machines and devices; Translations: [Uses walker]Onset: 157011-91-1547RhnubodItbkjbtj codes; unclassified (4 sources)Arrzu14-11-3607JpnuyclbJjzrhdcc codes; unclassified (6 sources)Localized edema; Translations: [Edema]EpisodicResidual codes; unclassified (4 sources)Edema, unspecified; Translations: [EDEMA UNSPECIFIED]Onset: 04-17-2241QylvnbndFpkvilcr codes; unclassified (1 source)Family history of malignant neoplasm of breast; Translations: [FAMILY HX MALIG NEOPLASM OF BREAST]Onset: 66-09-4829RfiwkeorWsveqihb codes; unclassified (7 sources)Bilateral lower leg edema; Translations: [Localized edema]12-11-2023 EpisodicResidual codes; unclassified (7 sources)Altered mental status; Translations: [Altered mental status, unspecified]15-13-5270QxfekozfVwzojryb codes; unclassified (3 sources)Altered mental status, unspecified; Translations: [Altered mental status]42-43-3851NgjtprptOtaazzii codes; unclassified (4 sources)Inflammatory kcfkgeun82-64-7991ZxxgxaduFljrchbogg arthritis and related disease (1 source)Rheumatoid arthritis, unspecified; Translations: [Rheumatoid arthritis, unspecified]Onset: 50-77-4245NtdfaysJjxnchzjv and history of mental health and substance abuse codes (1 source)Personal history of nicotine dependence; Translations: [PERSONAL HISTORY OF NICOTINE DEPEND]Onset: 19-79-2722OedbqmkjCedhmpbwjad; intervertebral disc disorders; other back problems (4 sources)Cervical disc dfudzycr73-46-4653NkaufhcJhqqvwjrdfi; intervertebral disc disorders; other back problems (4 sources)Chronic low back qkjv36-68-7508OkqbmssmMlmoucwdy-mjkcjyj disorders (11 sources)Moderate smoker (20 or less per day) ; Translations: [Nicotine dependence, cigarettes, uncomplicated]Onset: 007057-16-5189TnbhlzcHndkwst disorders (16 sources)Hypothyroidism; Translations: [Hypothyroidism, unspecified]Onset: 336813-67-3062ZqhvfsrDmqhxwhpddqd (4 sources)CONTACT W/AND (SUSP) EXPOS COVID-19; Translations: [CONTACT W/AND (SUSP) EXPOS COVID-19]Onset: 57-78-7698Dswqlussrqoe (1 source)COUGH, UNSPECIFIED; Translations: [COUGH, UNSPECIFIED]Onset: 53-04-8258Qkctzwnwseqh (2 sources)BX; Translations: [BX]Onset: 85-33-6838Beszsjmfmojb (6 sources)Inflammatory disorder; Translations: [Inflammation]12-11-2023 Unclassified (2 sources)Longstanding persistent atrial fibrillation; Translations: [Longstanding persistent atrial fibrillation]Onset: 87-87-1314Hafxbjflmvca (2 sources)Other persistent atrial fibrillation; Translations: [Other persistent atrial fibrillation]Onset: 44-39-3424Iunnvpo tract infections (4 sources)Urinary tract infection, site not specified; Translations: [UTI SITE NOT SPECIFIED]Onset: 18-07-9803FoxccanhKypdi infection (4 sources)COVID-19; Translations: [COVID-19]Onset: 03-17-2022 Past or Other Problems Problem ClassificationProblemDateDocumented DateEpisodic/ChronicCancer of other female genital organs (8 sources)High grade squamous intraepithelial lesion on vaginal Papanicolaou smear; Translations: [High gradesquamous intraepithelial lesion on cytologic smear of vagina (HGSIL)]Onset: 675428-47-0021LgdzvphdYvbyfvk dysrhythmias (2 sources)Palpitations; Translations: [Palpitations]Onset: 73-57-1718Vdupnxew Coronary atherosclerosis and other heart disease (1 source)Presence of coronary angioplasty implant and graft; Translations: [PRESENCE COR ANGPLSTY IMPLANT AND GRAFT]Onset: 60-46-4634VwefscouVyosmkxxlx and other anemia (1 source)Anemia, unspecified; Translations: [ANEMIA UNSPECIFIED]Onset: 64-71-1696XbgxfuzxAbrxd and electrolyte disorders (4 sources)Hypokalemia; Translations: [HYPOKALEMIA]Onset: 11-93-9546Eflssfbp Gastritis and duodenitis (4 sources)Gastritis, unspecified, without bleeding; Translations: [GASTRITIS UNS WITHOUT BLEEDING]Onset: 68-62-4037OouxldjnRhajexxkmdbpxtnw hemorrhage (9 sources)Rectal hemorrhage; Translations: [Hemorrhage of anus and rectum] Onset: 375194-71-1378XgpmyyoaWkbio valve disorders (1 source)Cardiac murmur, unspecified; Translations: [CARDIAC MURMUR UNSPECIFIED]Onset: 49-56-5056QvsmmcydThsorndedxxwc and screening for infectious disease (1 source)Encounter for immunization; Translations: [ENCOUNTER FOR IMMUNIZATION] Onset: 15-30-8852RegmjqorEhplyvkgqpmv breast conditions (4 sources)Unspecified lump in the right breast, upper outer quadrant; Translations: [UNS LUMP IN RT BREAST UPOUTR QUAD]Onset: 35-02-4805HdavysvnPynhn aftercare (1 source)terminal operations supervisor (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 aspirin; Translations: [WATER REGULATOR AND VALVE REPAIRER CURRENT USE OF ASPIRIN]Onset: 29-57-5235TqdqjqqrIekoj female genital disorders (11 sources)Vaginal lesion; Translations: [Other specified noninflammatory disorders of vagina]Onset: 560668-08-1444RdstxowjMtyrv female genital disorders (11 sources)Vaginal intraepithelial neoplasia grade 2; Translations: [Moderate vaginal dysplasia]Onset: 329055-21-4082LqhlfquzMuseh female genital disorders (1 source)Other specified noninflammatory disorders of vagina; Translations: [Other specified noninflammatorydisorders of vagina]Onset: 62-79-7108Orxqimpm Other female genital disorders (2 sources)Dysplasia of vagina, unspecified; 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, unspecified]Onset: 85-98-5344WnxorjpuWbseo gastrointestinal disorders (4 sources)Diarrhea, unspecified; Translations: [DIARRHEA UNSPECIFIED]Onset: 80-53-8004PrzafapmNzabw lower respiratory disease (4 sources)Dyspnea, unspecified; Translations: [DYSPNEA UNSPECIFIED]Onset: 00-03-2173BgavxivzXgihs lower respiratory disease (4 sources)Other forms of dyspnea; Translations: [OTHER FORMS OF DYSPNEA]Onset: 00-74-6291MpygbyplVajmt screening for suspected conditions (not mental disorders or infectious disease) (8 sources)Other abnormal and inconclusive findings on diagnostic imaging of breast; Translations: [Encounter for screening mammogram for malignant neoplasm of breast]Onset: 67-28-6214TzyfvqirVyypz upper respiratory disease (1 source)Nasal congestion; Translations: [NASAL CONGESTION]Onset: 08-13-2022 EpisodicResidual codes; unclassified (7 sources)Postoperative state; Translations: [Other specified postprocedural states]Onset: 12-13-2021 Resolved: 24-30-4078LskrzsvqKcoqsmcg codes; unclassified (1 source)Acquired absence of both cervix and uterus; Translations: [ACQUIRED ABSENCE BOTH CERVIX AND UTERUS]Onset: 62-28-0275MagopiebOzdusuqo codes; unclassified (1 source)Family history of malignant neoplasm of other organs or systems; Translations: [FAM HX MALIG NEOPLASM OT ORGN/SYS]Onset: 19-82-5243SmktwaiwQfmw and subcutaneous tissue infections (2 sources)Local infection of the skin and subcutaneous tissue, unspecified; Translations: [Local infection ofthe skin and subcutaneous tissue, unspecified] Onset: 18-04-7213DhsvzfqaZqrwjbgupsom (6 sources)Complications due to vascular device, implant, and graft; Translations: [Complications due to vascular device, implant, and graft] Unclassified (6 sources)E coli infection; Translations: [E coli infection]Unclassified (1 source)CONTACT W/AND (SUSP) EXPOS COVID-19; Translations: [CONTACT W/AND (SUSP) EXPOS COVID-19]Onset: 44-57-4625Ahdvxzak veins of lower extremity (12 sources)Varicose veins of lower limb co-occurrent with edema; Translations: [Varicose veins of bilateral lower extremities with other complications]Onset: 133031-32-0737Xbulbuuo Results Test NameValueInterpretationReference RangeFacilityOrders Onlyon 06-12-2025 Orders [id number] Harman Mcleod 1940 F Date Provider Department Center 06/12/2025 [facility] Family History Problem Relation Age of Onset Stroke Mother Coronary artery disease Father Heart attack Father Family Status - Relation Status Age at Mother Father Sister DeceasedNormalUniversity of [facility] Health [facility] ArlingtonAlanine aminotransferase [Enzymatic activity/volume] in Serum or PlasmaOrdered By: Christiano Mcdonnell on 03-97-2947FXV [Catalytic activity/Vol]13 U/LNormal7-52Martin [facility] HospitalComment on above:Performed By: #### ESR, CBC, CMP #### [facility] [address] [place] [address] USAAlbumin [Mass/volume] in Serum or Plasma by Bromocresol green (BCG) dye binding methoOrdered By: Christiano Mcdonnell on 25-69-2332Xvczqse BCG dye [Mass/Vol]3.5 g/dL3.5-5.7FOhioHealth Southeastern Medical CenterAlkaline phosphatase [Enzymatic activity/volume] in Serum or PlasmaOrdered By: Christiano Mcdonnell on 02-46-4472SBD [Catalytic activity/Vol]122 U/PDxrt01-491GeqmaytxmMartin Memorial HospitalComment on above:Performed By: #### ESR, CBC, CMP #### [facility] [address] [place] [address] USAAspartate aminotransferase [Enzymatic activity/volume] in Serum or PlasmaOrdered By: Christiano Martinrow on 77-24-1979OSO [Catalytic activity/Vol]16 U/VUgvzex74-66NcydidvkjMartin Memorial HospitalComment on above: Performed By: #### ESR, CBC, CMP #### [place] [address] USABasophils [#/volume] in Blood by Automated countOrdered By: Christiano Martinrow on 13-77-9677Xdqktiviz (Bld) [#/Vol]0.1 10*3/uLNormal0.0-0.2 [facility] HospitalComment on above:Performed By: #### ESR, CBC, CMP #### [place] [address] USABasophils/100 leukocytes in Blood by Automated count Ordered By: Christiano Kecia on 68-92-4275Bhezufyta/100 WBC (Bld)0.9 %Normal. Martin [facility] HospitalComment on above:Performed By: #### ESR, CBC, CMP #### [place] [address] USABilirubin.total [Mass/volume] in Serum or PlasmaOrdered By: Christiano Kecia on 01-43-7397Zgrvallcm [Mass/Vol]0.3 mg/dLNormal0.3-1.0 [facility] HospitalComment on above:Performed By: #### ESR, CBC, CMP #### [place] [address] USACalcium [Mass/volume] in Serum or PlasmaOrdered By: Christiano Kecia on 55-64-2878Jijmthg [Mass/Vol]9.4 mg/dLNormal8.6-10.3FOhioHealth Southeastern Medical CenterComment on above:Performed By: #### ESR, CBC, CMP #### [place] [address] USACarbon dioxide, total [Moles/volume] in Serum or Plasma Ordered By: Christiano Mcdonnell on 78-00-4747LH5 [Moles/Vol]33.6 mmol/LHigh21.0-31.0 [facility] HospitalComment on above:Performed By: #### ESR, CBC, CMP #### [place] [address] USAChloride [Moles/volume] in Serum or PlasmaOrdered By: Christiano Mcdonnell on 85-36-9493Skxtzdrl [Moles/Vol]98 mmol/HWkzpig11-597NttuajlmqMartin Memorial HospitalComment on above:Performed By: #### ESR, CBC, CMP #### [place] [address] USAComplete Blood Count Auto Diffon 43-26-1057Jgnj Corpuscular HGB Conc33.2 g/nVHbspxt76.0-35.0The [facility] Physician GroupComment on above:Performed By: #### ESR, CBC, CMP #### [place] [address] USANRBC%0.1 /100{WBC}Normal0-0.5The [facility] Comment on above:Performed By: #### ESR, CBC, CMP #### [place] [address] USAWhite Blood Count7.9 [CFU]/mLNormal3.8-11.6The [facility] Physician GroupComment on above:Performed By: #### ESR, CBC, CMP #### [place] [address] USAComprehensive Metabolic Panelon 68-50-6346Yawunqk [Mass/Vol]3.5 g/dLNormal3.5-5.7The [facility] Physician GroupComment on above: Performed By: #### ESR, CBC, CMP #### [place] [address] USAGFR/1.73 sq M.predicted MDRD (S/P/Bld) [Vol rate/Area] 38.217 mL/min/{1.73_m2}NormalThe [facility]ly [facility] Physician GroupComment on above: Performed By: #### ESR, CBC, CMP #### [place] [address] USACreatinine [Mass/volume] in Serum or PlasmaOrdered By: Christiano Kecia on 12-20-3393Tfnhjbixgy [Mass/Vol]1.38 mg/dLHigh0.60-1.20 [facility] HospitalComment on above:Performed By: #### ESR, CBC, CMP #### [place] [address] USAEosinophils [#/volume] in Blood by Automated countOrdered By: Christiano Mcdonnell on 65-90-8886Ozsesyjtbqa (Bld) [#/Vol]0.6 10*3/uLHigh0.0-0.45 [facility] HospitalComment on above:Performed By: #### ESR, CBC, CMP #### [place] [address] USAEosinophils/100 leukocytes in Blood by Automated count Ordered By: Christiano Mcdonnell on 39-77-4001Tarixijjdan/100 WBC (Bld)7.9 %Normal. Martin [facility] HospitalComment on above:Performed By: #### ESR, CBC, CMP #### [place] [address] USAErythrocyte Sedimentation Rateon 67-66-1854CZT (Bld) [Velocity]61 mm/hHigh0-29The [facility] Physician GroupComment on above:Result Comment: PERFORMED BY: [place] [address] PATHOLOGIST TEMPERING KILN TENDER LIO MIRELES M.D.Performed By: #### ESR, CBC, CMP #### [place] [address] USAErythrocyte distribution width [Ratio] by Automated count Ordered By: Christiano Mcdonnell on 70-70-5788Fplffavrqll distribution width (RBC) [Ratio]15.4 %High11.9-15.3FOhioHealth Southeastern Medical CenterComment on above: Performed By: #### ESR, CBC, CMP #### [facility] [address] [place] [address] USAErythrocyte sedimentation rate by Photometric method Ordered By: Christiano Martinrow on 00-66-9128GUF Photometric method (Bld) [Velocity] 61 mm/hrHigh0-29Martin Memorial HospitalErythrocytes [#/volume] in Blood by Automated countOrdered By: Christiano Martinrow on 74-45-9930BDZ (Bld) [#/Vol]3.73 10*6/uLNormal3.60-5.00Martin Memorial HospitalComment on above:Performed By: #### ESR, CBC, CMP #### [facility] [address] [place] [address] USAGlomerular filtration rate [Volume Rate/Area] in Serum, Plasma or Blood by CreatinineOrdered By: Christiano Martinrow on 94-98-7099Fhcpfajqwo filtration rate [Volume Rate/Area] in Serum, Plasma or Blood by Auouschyjs99.217 mL/MinMartin Memorial HospitalGlucose [Mass/volume] in Serum or Plasma Ordered By: Christiano Martinrow on 21-86-3225Rttcjhp [Mass/Vol]257 mg/lMOrwy43-161 [facility] HospitalComment on above:ADA recommended reference rangeRandom Glucose Reference Range is dependent on time and content of last meal. Glucose of more than 200 mg/dL in a nonstressed, ambulatory subject supports the diagnosisof Diabetes Mellitus.Result Comment: Random Glucose Reference Range is dependent on time and content of last meal. Glucose of more than 200 mg/dL in a nonstressed, ambulatory subject supports the diagnosis of Diabetes Mellitus. ADA recommended reference rangePerformed By: #### ESR, CBC, CMP #### [facility] [address] [place] [address] USAHematocrit [Volume Fraction] of Blood by Automated count Ordered By: Christiano Martinrow on 15-60-3438Yqdrrlzuel (Bld) [Volume fraction]35.7 % Sczodr40.0-46.4FOhioHealth Southeastern Medical CenterComment on above:Performed By: #### ESR, CBC, CMP #### [facility] [address] [place] [address] USAHemoglobin [Mass/volume] in BloodOrdered By: Christianoanali Mcdonnell on 50-19-8499Bhmgyzxcmx (Bld) [Mass/Vol]11.9 g/oWWatgtj87.8-15.4FOhioHealth Southeastern Medical CenterComment on above:Performed By: #### ESR, CBC, CMP #### [place] [address] USALeukocytes [#/volume] corrected for nucleated erythrocytes in Blood by Automated counOrdered By: Christiano Martinrow on 22-07-2377TJH corrected for nucl RBC Auto (Bld) [#/Vol]7.9 10*3/uL3.8-11.6FOhioHealth Southeastern Medical CenterLeukocytes [#/volume] in Blood by Automated countOrdered By: Christiano Kecia on 97-95-5894QHK (Bld) [#/Vol]7.9 10*3/uLNormal3.8-11.6FOhioHealth Southeastern Medical CenterComment on above:Performed By: #### ESR, CBC, CMP #### [place] [address] USALymphocytes [#/volume] in Blood by Automated countOrdered By: Christiano Kecia on 50-27-5283Qvplfiszstu (Bld) [#/Vol]2.3 10*3/uLNormal 1.00-4.8Martin [facility] HospitalComment on above:Performed By: #### ESR, CBC, CMP #### [place] [address] USALymphocytes/100 leukocytes in Blood by Automated count Ordered By: Christiano Kecia on 06-20-9756Xalkdpvwuuz/100 WBC (Bld)29.2 %Normal. Martin [facility] HospitalComment on above:Performed By: #### ESR, CBC, CMP #### [place] [address] USAMCH [Entitic mass] by Automated countOrdered By: Christiano Mcdonnell on 99-40-2751VIS (RBC) [Entitic mass]31.8 hpGweeaa00.7-34.3FOhioHealth Southeastern Medical CenterComment on above:Performed By: #### ESR, CBC, CMP #### [facility] [address] [place] [address] USAHC Auto (RBC) [Mass/Vol]Ordered By: Christiano Mcdonnell on 19-21-5612AEYL (RBC) [Mass/Vol]33.2 g/dL32.0-35.0Martin Memorial HospitalMCV [Entitic volume] by Automated countOrdered By: Christiano Mcdonnell on 73-34-3978XUL (RBC) [Entitic vol]95.9 bSBuvjqm98-075EadlqtovuMartin Memorial HospitalComment on above:Performed By: #### ESR, CBC, CMP #### [place] [address] USAMonocytes [#/volume] in Blood by Automated countOrdered By: Christiano Martinrow on 90-40-3874Leppseybs (Bld) [#/Vol]0.6 10*3/uLNormal0.0-0.8 [facility] HospitalComment on above:Performed By: #### ESR, CBC, CMP #### [place] [address] USAMonocytes/100 leukocytes in Blood by Automated count Ordered By: Christiano Mcdonnell on 12-02-4230Utkhqujfg/100 WBC (Bld)7.5 %Normal. [facility] HospitalComment on above:Performed By: #### ESR, CBC, CMP #### [facility] [address] [place] [address] USANeutrophils [#/volume] in Blood by Automated countOrdered By: Christiano Martinrow on 62-03-4428Dnswvughrbo (Bld) [#/Vol]4.3 10*3/uLNormal 1.8-7.7FOhioHealth Southeastern Medical CenterComment on above:Performed By: #### ESR, CBC, CMP #### [facility] [address] [place] [address] USANeutrophils/100 leukocytes in Blood by Automated count Ordered By: Christiano Martinrow on 13-41-8455Gzbaouboxik/100 WBC (Bld)54.5 %Normal. [facility] HospitalComment on above:Performed By: #### ESR, CBC, CMP #### [facility] [address] [place] [address] USANo Panel InformationOrdered By: Christiano Martinrow on 03-07-7999Khkfvqbv Creatinine Clearance (ChemN/AFOhioHealth Southeastern Medical CenterNucleated erythrocytes [Presence] in Blood by Automated countOrdered By: Christiano Martinrow on 26-55-4682Iazsvlrsc RBC Auto Ql (Bld)0.1 /100{WBC}0-0.5 [facility] Memorial HospitalPlatelet mean volume [Entitic volume] in Blood by Automated countOrdered By: Christiano Martinrow on 04-22-3294Jnhhcsts mean volume (Bld) [Entitic vol]8.3 fLNormal6.3-10.7FOhioHealth Southeastern Medical CenterComment on above:Performed By: #### ESR, CBC, CMP #### [facility] [address] [place] [address] USAPlatelets [#/volume] in Blood by Automated countOrdered By: Christianoanali Mcdonnell on 44-40-2512Fqylmoifw (Bld) [#/Vol]252 10*3/aBFhcyri953-852 [facility] HospitalComment on above:Performed By: #### ESR, CBC, CMP #### [facility] [address] [place] [address] USAPotassium [Moles/volume] in Serum or PlasmaOrdered By: Christianoanali Mcdonnell on 89-91-8802Hldhbtwbv [Moles/Vol]4.3 mmol/LNormal3.5-5.1 [facility] HospitalComment on above:Hemolysis is present at a level that could interfere with the result.Contact lab if redraw is required Result Comment: Hemolysis is present at a level that could interfere with the result. Contact lab if redraw is requiredPerformed By: #### ESR, CBC, CMP #### [place] [address] USAProtein [Mass/volume] in Serum or PlasmaOrdered By: Christiano Mcdonnell on 55-06-9470Aligjll [Mass/Vol]6.5 g/dLNormal6.4-8.9Fire[facility] Regional Medical CenterComment on above:Performed By: #### ESR, CBC, CMP #### [facility] [address] [place] [address] USASerum globulin measurement by calculation (mass/volume) Ordered By: Christiano Martinrow on 00-21-3293Letnuhhp (S) [Mass/Vol]3.0 g/dLNormal [facility] HospitalComment on above:Performed By: #### ESR, CBC, CMP #### [place] [address] USASerum or plasma albumin/globulin mass ratioOrdered By: Christiano Kecia on 80-78-3213Qwmmgfu/Globulin [Mass ratio]1.2 {ratio}Normal [facility] HospitalComment on above:Performed By: #### ESR, CBC, CMP #### [place] [address] USASerum or plasma anion gap determinationOrdered By: Christiano Kecia on 35-93-3375Jyrze gap [Moles/Vol]11.7 mmol/LNormal6.0-15.0Martin Memorial HospitalComment on above:Performed By: #### ESR, CBC, CMP #### [place] [address] USASodium [Moles/volume] in Serum or PlasmaOrdered By: Christianoanali Mcdonnell on 43-33-2366Wrvrdh [Moles/Vol]139 mmol/CZgqbig499-487CcqfhbqynMartin Memorial HospitalComment on above:Performed By: #### ESR, CBC, CMP #### [place] [address] USAUrate [Mass/volume] in Serum or PlasmaOrdered By: Christianoanali Mcdonnell on 97-10-9357Qtkjy [Mass/Vol]3.1 mg/dLNormal2.3-6.6FOhioHealth Southeastern Medical CenterComment on above:Result Comment: PERFORMED BY: [place] [address] PATHOLOGIST TEMPERING KILN TENDER LIO MIRELES M.D.Performed By: #### ESR, CBC, CMP #### [place] [address] USAUrea nitrogen [Mass/volume] in Serum or PlasmaOrdered By: Christiano Mcdonnell on 00-13-9743Ycjx nitrogen [Mass/Vol]23 mg/dLNormal7-25Martin Memorial HospitalComment on above:Performed By: #### ESR, CBC, CMP #### [place] [address] USAComplete Blood Count Auto Diffon 03-32-4432Hlhokatig (Bld) [#/Vol]0.0 10*3/uLNormal0.0-0.2The [facility] Physician GroupComment on above: Performed By: #### ESR, CBC, CMP #### [place] [address] USABasophils/100 WBC (Bld)0.4 %Normal.The [facility], [facility] Physician GroupComment on above:Performed By: #### ESR, CBC, CMP #### [place] [address] USAEosinophils (Bld) [#/Vol]0.1 10*3/uLNormal0.0-0.45The [facility], [facility] Physician GroupComment on above:Performed By: #### ESR, CBC, CMP #### [place] [address] USAEosinophils/100 WBC (Bld)1.3 %Normal.The [facility] Physician GroupComment on above:Performed By: #### ESR, CBC, CMP #### [place] [address] USAErythrocyte distribution width (RBC) [Ratio]14.0 %Normal 11.9-15.3The [facility], [facility] Physician GroupComment on above:Performed By: #### ESR, CBC, CMP #### [place] [address] USAHematocrit (Bld) [Volume fraction]33.9 %Low34.0-46.4The [facility], [facility] Physician GroupComment on above:Performed By: #### ESR, CBC, CMP #### [place] [address] USAHemoglobin (Bld) [Mass/Vol]11.2 g/dLLow11.8-15.4The [facility] Physician GroupComment on above:Performed By: #### ESR, CBC, CMP #### [place] [address] USALymphocytes (Bld) [#/Vol]2.2 10*3/uLNormal1.00-4.8The [facility] Physician GroupComment on above:Performed By: #### ESR, CBC, CMP #### [place] [address] USALymphocytes/100 WBC (Bld)21.1 %Normal.The [facility] Physician GroupComment on above:Performed By: #### ESR, CBC, CMP #### [address] (RBC) [Entitic mass]30.9 khKacseh78.7-34.3The [facility], [facility] Physician GroupComment on above:Performed By: #### ESR, CBC, CMP #### [place] [address] USAMCV (RBC) [Entitic vol]93.3 sRCjdkva51-598Vlf [facility], [facility] Physician GroupComment on above:Performed By: #### ESR, CBC, CMP #### [place] [address] USAMean Corpuscular HGB Conc33.1 g/kSOfaaah66.0-35.0The [facility], [facility] Physician GroupComment on above:Performed By: #### ESR, CBC, CMP #### [place] [address] USAMonocytes (Bld) [#/Vol]1.3 10*3/uLHigh0.0-0.8The [facility] Physician GroupComment on above:Performed By: #### ESR, CBC, CMP #### [place] [address] USAMonocytes/100 WBC (Bld)12.5 %Normal.The [facility] Physician GroupComment on above:Performed By: #### ESR, CBC, CMP #### [place] [address] USANeutrophils (Bld) [#/Vol]6.7 10*3/uLNormal1.8-7.7The [facility] Physician GroupComment on above:Performed By: #### ESR, CBC, CMP #### [place] [address] USANeutrophils/100 WBC (Bld)64.7 %Normal.The [facility] Physician GroupComment on above:Performed By: #### ESR, CBC, CMP #### [place] [address] USANRBC%0.1 /100{WBC}Normal0-0.5The [facility] Comment on above:Performed By: #### ESR, CBC, CMP #### [place] [address] USAPlatelet mean volume (Bld) [Entitic vol]8.7 fLNormal 6.3-10.7The [facility] Physician GroupComment on above:Performed By: #### ESR, CBC, CMP #### [place] [address] USAPlatelets (Bld) [#/Vol]280 10*3/iBCgmmvq744-997Xqj [facility] Physician GroupComment on above:Performed By: #### ESR, CBC, CMP #### [place] [address] USARBC (Bld) [#/Vol]3.63 10*6/uLNormal3.60-5.00The [facility] Physician GroupComment on above:Performed By: #### ESR, CBC, CMP #### [place] [address] USAWBC (Bld) [#/Vol]10.4 10*3/uLNormal3.8-11.6The [facility] Physician GroupComment on above:Performed By: #### ESR, CBC, CMP #### [place] [address] USAWhite Blood Count10.4 [CFU]/mLNormal3.8-11.6The [facility] Physician GroupComment on above:Performed By: #### ESR, CBC, CMP #### [place] [address] USAComprehensive Metabolic Panelon 47-47-4935Fmgoexd [Mass/Vol]4.0 g/dLNormal3.5-5.7The [facility] Physician GroupComment on above: Performed By: #### ESR, CBC, CMP #### [place] [address] USAAlbumin/Globulin [Mass ratio]1.5 {ratio}NormalThe [facility] Physician GroupComment on above:Performed By: #### ESR, CBC, CMP #### [place] [address] USAALP [Catalytic activity/Vol]97 U/MIunzza84-310Thc [facility] Physician GroupComment on above:Result Comment: PERFORMED BY: [place] [address] PATHOLOGIST TEMPERING KILN TENDER LIO MIRELES M.D.Performed By: #### ESR, CBC, CMP #### [place] [address] USAALT [Catalytic activity/Vol]8 U/LNormal7-52The [facility] Physician GroupComment on above:Performed By: #### ESR, CBC, CMP #### [place] [address] USAAnion gap [Moles/Vol]20.9 mmol/LHigh6.0-15.0The [facility] Physician GroupComment on above:Performed By: #### ESR, CBC, CMP #### [place] [address] USAAST [Catalytic activity/Vol]13 U/HRgxohd92-98Jcn [facility] Physician GroupComment on above:Performed By: #### ESR, CBC, CMP #### [address] [place] [address] USABilirubin [Mass/Vol]0.5 mg/dLNormal0.3-1.0The [facility] Physician GroupComment on above:Performed By: #### ESR, CBC, CMP #### [facility] [address] [place] [address] USACalcium [Mass/Vol]9.5 mg/dLNormal8.6-10.3The [facility] Physician GroupComment on above:Performed By: #### ESR, CBC, CMP #### [facility] [address] [place] [address] USAChloride [Moles/Vol]98 mmol/PHqxgtg52-048Lgl [facility] Physician GroupComment on above:Performed By: #### ESR, CBC, CMP #### [place] [address] USACO2 [Moles/Vol]26.3 mmol/GCpprnx67.0-31.0The [facility] Physician GroupComment on above:Performed By: #### ESR, CBC, CMP #### [place] [address] USACreatinine [Mass/Vol]1.56 mg/dLHigh0.60-1.20The [facility] Physician GroupComment on above:Performed By: #### ESR, CBC, CMP #### [place] [address] USAGFR/1.73 sq M.predicted MDRD (S/P/Bld) [Vol rate/Area] 32.988 mL/min/{1.73_m2}NormalThe [facility] Physician GroupComment on above: Performed By: #### ESR, CBC, CMP #### [facility] [address] [place] [address] USAGlobulin (S) [Mass/Vol]2.7 g/dLNormalThe [facility] Phys[facility] GroupComment on above:Performed By: #### ESR, CBC, CMP #### [place] [address] USAGlucose [Mass/Vol]96 mg/rOVvbpnt97-356Cvv [facility] Physician GroupComment on above:Result Comment: Random Glucose Reference Range is dependent on time and content of last meal. Glucose of more than 200 mg/dL in a nonstressed, ambulatory subject supports the diagnosis of Diabetes Mellitus. ADA recommended reference rangePerformed By: #### ESR, CBC, CMP #### [place] [address] USAPotassium [Moles/Vol]3.2 mmol/LLow3.5-5.1The [facility] Physician GroupComment on above:Performed By: #### ESR, CBC, CMP #### [facility] [address] [place] [address] USAProtein [Mass/Vol]6.7 g/dLNormal6.4-8.9The [facility] Physician GroupComment on above:Performed By: #### ESR, CBC, CMP #### [place] [address] USASodium [Moles/Vol]142 mmol/YCnvdms005-119Lca [facility] Physician GroupComment on above:Performed By: #### ESR, CBC, CMP #### [place] [address] USAUrea nitrogen [Mass/Vol]35 mg/dLHigh7-25The [facility] GroupComment on above:Performed By: #### ESR, CBC, CMP #### [place] [address] USAErythrocyte Sedimentation Rateon 67-96-3690VVU (Bld) [Velocity]63 mm/hHigh0-29The [facility] Physician GroupComment on above:Result Comment: PERFORMED BY: [place] [address] PATHOLOGIST TEMPERING KILN TENDER LIO MIRELES M.D.Performed By: #### ESR, CBC, CMP #### [place] [address] USAOffice Visiton 62-97-9056Vqxjom-up [id number] Harman Mcleod 1940 F Date Provider Department Center 01/21/2025 BRIAN FLANNERY [facility] Family History Problem Relation Age of Onset Stroke Mother Coronary artery disease Father Heart attack Father Family Status - Relation Status Age at Mother Father Sister Level of Service:[address] [place] OFFICE/OUTPATIENT ESTABLISHED LOW [facility] HospitalAlanine aminotransferase [Enzymatic activity/volume] in Serum or PlasmaOrdered By: Christiano Mcdonnell on 63-68-0318HVA [Catalytic activity/Vol]Alanine aminotransferase [Enzymatic activity/volume] in Serum or Plasma7-52[facility] HospitalAlbumin [Mass/volume] in Serum or Plasma by Bromocresol green (BCG) dye binding methoOrdered By: Christiano Mcdonnell on 59-62-6694Wucgnwq BCG dye [Mass/Vol]Albumin [Mass/volume] in Serum or Plasma by Bromocresol green (BCG) dye binding metho3.5-5.7FOhioHealth Southeastern Medical CenterAlkaline phosphatase [Enzymatic activity/volume] in Serum or PlasmaOrdered By: Christiano Mcdonnell on 76-48-3591NCZ [Catalytic activity/Vol] Alkaline phosphatase [Enzymatic activity/volume] in Serum or Jycpcu62-826 [facility] Memorial HospitalAspartate aminotransferase [Enzymatic activity/volume] in Serum or PlasmaOrdered By: Christiano Mcdonnell on 42-16-2344TEE [Catalytic activity/Vol]Aspartate aminotransferase [Enzymatic activity/volume] in Serum or Kjgmsi35-54MhkygzarsMartin Memorial HospitalBasophils Auto (Bld) [#/Vol]Ordered By: Christiano Mcdonnell on 49-27-7183Yqnvmtimn (Bld) [#/Vol]Automated basophil count0.0-0.2FOhioHealth Southeastern Medical CenterBasophils/100 WBC Auto (Bld)Ordered By: Christiano Mcdonnell on 90-78-7637Nhsafjwzp/100 WBC (Bld)Automated basophil %.Martin Memorial HospitalBilirubin.total [Mass/volume] in Serum or PlasmaOrdered By: Christiano Mcdonnell on 35-83-8521Ohtbdxkyk [Mass/Vol] Bilirubin.total [Mass/volume] in Serum or Plasma0.3-1.0Martin Memorial HospitalCalcium [Mass/volume] in Serum or PlasmaOrdered By: Christiano Mcdonnell on 55-21-2907Gokntmn [Mass/Vol]Calcium [Mass/volume] in Serum or PlasmaHigh 8.6-10.3FOhioHealth Southeastern Medical CenterCarbon dioxide, total [Moles/volume] in Serum or PlasmaOrdered By: Christiano Mcdonnell on 38-75-9280KQ2 [Moles/Vol]Carbon dioxide, total [Moles/volume] in Serum or WuwrjfPtzy12.0-31.0Martin Memorial HospitalChloride [Moles/volume] in Serum or PlasmaOrdered By: Christiano Mcdonnell on 95-56-4232Ezfmiyce [Moles/Vol]Chloride [Moles/volume] in Serum or Bxywxq54-102VticlhthkMartin Memorial HospitalComplete Blood Count Auto Diffon 10-60-3002Janwsrayd (Bld) [#/Vol]0.0 10*3/uLNormal0.0-0.2The [facility] Physician GroupComment on above:Performed By: #### ESR, CBC, CMP #### [facility] [address] [place] [address] USABasophils/100 WBC (Bld)0.4 %Normal.The [facility] Physician GroupComment on above:Performed By: #### ESR, CBC, CMP #### [facility] [address] [place] [address] USAEosinophils (Bld) [#/Vol]0.1 10*3/uLNormal0.0-0.45The [facility] Physician GroupComment on above:Performed By: #### ESR, CBC, CMP #### [facility] [address] [place] [id number] USAEosinophils/100 WBC (Bld)1.1 %Normal.The [facility] Physician GroupComment on above:Performed By: #### ESR, CBC, CMP #### [facility] [address] [place] [address] USAErythrocyte distribution width (RBC) [Ratio]14.9 %Normal 11.9-15.3The [facility] Physician GroupComment on above:Performed By: #### ESR, CBC, CMP #### [facility] [address] [place] [address] USAHematocrit (Bld) [Volume fraction]37.5 %Txfghe63.0-46.4The [facility] Physician GroupComment on above:Performed By: #### ESR, CBC, CMP #### [place] [address] USAHemoglobin (Bld) [Mass/Vol]12.3 g/dAQecyka90.8-15.4The [facility] Physician GroupComment on above:Performed By: #### ESR, CBC, CMP #### [place] [address] USALymphocytes (Bld) [#/Vol]1.5 10*3/uLNormal1.00-4.8The [facility] Physician GroupComment on above:Performed By: #### ESR, CBC, CMP #### [place] [address] USALymphocytes/100 WBC (Bld)13.7 %Normal.The [facility] Physician GroupComment on above:Performed By: #### ESR, CBC, CMP #### [place] [address] USAMCH (RBC) [Entitic mass]30.7 zuEvtrac46.7-34.3The [facility] Physician GroupComment on above:Performed By: #### ESR, CBC, CMP #### [place] [address] USAMCV (RBC) [Entitic vol]93.2 sGRxtjec38-018Mnb [facility] Physician GroupComment on above:Performed By: #### ESR, CBC, CMP #### [place] [address] USAMean Corpuscular HGB Conc32.9 g/wLMhwcyg55.0-35.0The [facility] Physician GroupComment on above:Performed By: #### ESR, CBC, CMP #### [place] [address] USAMonocytes (Bld) [#/Vol]0.7 10*3/uLNormal0.0-0.8The [facility] Physician GroupComment on above:Performed By: #### ESR, CBC, CMP #### [facility] [address] [place] [address] USAMonocytes/100 WBC (Bld)6.1 %Normal.The [facility] Physician GroupComment on above:Performed By: #### ESR, CBC, CMP #### [facility] [address] [place] [address] USANeutrophils (Bld) [#/Vol]8.5 10*3/uLHigh1.8-7.7The [facility] Physician GroupComment on above:Performed By: #### ESR, CBC, CMP #### [facility] [address] [place] [address] USANeutrophils/100 WBC (Bld)78.7 %Normal.The [facility] Physician GroupComment on above:Performed By: #### ESR, CBC, CMP #### [facility] [address] [place] [address] USANRBC%0.1 /100{WBC}Normal0-0.5The [facility] Comment on above:Performed By: #### ESR, CBC, CMP #### [facility] [address] [place] [address] USAPlatelet mean volume (Bld) [Entitic vol]8.2 fLNormal 6.3-10.7The [facility] Physician GroupComment on above:Performed By: #### ESR, CBC, CMP #### [facility] [address] [place] [address] USAPlatelets (Bld) [#/Vol]238 10*3/lCXsbwaa707-724Gqj [facility] Physician GroupComment on above:Performed By: #### ESR, CBC, CMP #### [facility] [address] [place] [address] USARBC (Bld) [#/Vol]4.02 10*6/uLNormal3.60-5.00The [facility] Physician GroupComment on above:Performed By: #### ESR, CBC, CMP #### [facility] [address] [place] [address] USAWBC (Bld) [#/Vol]10.9 10*3/uLNormal3.8-11.6The [facility] Physician GroupComment on above:Performed By: #### ESR, CBC, CMP #### [place] [address] USAComprehensive Metabolic Panelon 26-35-9565Uhyvquz [Mass/Vol]4.4 g/dLNormal3.5-5.7The [facility] Physician GroupComment on above: Performed By: #### ESR, CBC, CMP #### [place] [address] USAAlbumin/Globulin [Mass ratio]1.7 {ratio}NormalThe [facility] Physician GroupComment on above:Performed By: #### ESR, CBC, CMP #### [place] [address] USAALP [Catalytic activity/Vol]92 U/BLwjkxt75-377Isn [facility]ly [facility] Physician GroupComment on above:Result Comment: PERFORMED BY: [place] [address] PATHOLOGIST TEMPERING KILN TENDER BERNARDA GARCIA M.D.Performed By: #### ESR, CBC, CMP #### [place] [address] USAALT [Catalytic activity/Vol]17 U/LNormal7-52The [facility] Physician GroupComment on above:Performed By: #### ESR, CBC, CMP #### [place] [address] USAAnion gap [Moles/Vol]13.1 mmol/LNormal6.0-15.0The [facility] Physician GroupComment on above:Performed By: #### ESR, CBC, CMP #### [place] [address] USAAST [Catalytic activity/Vol]17 U/THcicya91-96Qda [facility] Physician GroupComment on above:Performed By: #### ESR, CBC, CMP #### [place] [address] USABilirubin [Mass/Vol]0.5 mg/dLNormal0.3-1.0The [facility] Physician GroupComment on above:Performed By: #### ESR, CBC, CMP #### [facility] [address] [place] [address] USACalcium [Mass/Vol]10.4 mg/dLHigh8.6-10.3The [facility] Physician GroupComment on above:Performed By: #### ESR, CBC, CMP #### [facility] [address] [place] [address] USAChloride [Moles/Vol]98 mmol/HWmfdyu22-093Lqo [facility] Physician GroupComment on above:Performed By: #### ESR, CBC, CMP #### [facility] [address] [place] [address] USACO2 [Moles/Vol]34.6 mmol/LHigh21.0-31.0The [facility] Physician GroupComment on above:Performed By: #### ESR, CBC, CMP #### [facility] [address] [place] [address] USACreatinine [Mass/Vol]1.46 mg/dLHigh0.60-1.20The [facility] Physician GroupComment on above:Performed By: #### ESR, CBC, CMP #### [facility] [address] [place] [address] USAEstimated GFR35.718 mL/MinNormMorton Plant Hospital Physician [facility] Mississippi Medical CenterComment on above:Performed By: #### ESR, CBC, CMP #### [facility] [address] [place] [address] USAGlobulin (S) [Mass/Vol]2.6 g/dLNoAtrium Health Anson Physician GroupComment on above:Performed By: #### ESR, CBC, CMP #### [facility] [address] [place] [address] USAGlucose [Mass/Vol]142 mg/tNFxwn84-977Utg [facility] Physician GroupComment on above:Result Comment: Random Glucose Reference Range is dependent on time and content of last meal. Glucose of more than 200 mg/dL in a nonstressed, ambulatory subject supports the diagnosis of Diabetes Mellitus. ADA recommended reference rangePerformed By: #### ESR, CBC, CMP #### [facility] [address] [place] [address] USAPotassium [Moles/Vol]3.7 mmol/LNormal3.5-5.1The [facility] Physician GroupComment on above:Performed By: #### ESR, CBC, CMP #### [facility] [address] [place] [id number] USAProtein [Mass/Vol]7.0 g/dLNormal6.4-8.9The [facility] Physician GroupComment on above:Performed By: #### ESR, CBC, CMP #### [facility] [address] [place] [id number] USASodium [Moles/Vol]142 mmol/JEtdatj127-748Etk [facility] Physician GroupComment on above:Performed By: #### ESR, CBC, CMP #### [place] [address] USAUrea nitrogen [Mass/Vol]43 mg/dLHigh7-25The [facility] Physician GroupComment on above:Performed By: #### ESR, CBC, CMP #### [facility] [address] [place] [id number] USACreatinine [Mass/volume] in Serum or PlasmaOrdered By: Christiano Mcdonnell on 31-72-8795Tembczrsmg [Mass/Vol]Creatinine [Mass/volume] in Serum or PlasmaHigh0.60-1.20[facility] HospitalEosinophils Auto (Bld) [#/Vol]Ordered By: Christiano Mcdonnell on 87-19-1460Akswmroxfin (Bld) [#/Vol] Automated eosinophil count0.0-0.45[facility] Eosinophils/100 WBC Auto (Bld)Ordered By: Christiano Mcdonnell on 01-07-2025 Eosinophils/100 WBC (Bld)Automated eosinophil %.[facility] Memorial HospitalErythrocyte Sedimentation Rateon 05-80-8196GVT (Bld) [Velocity]37 mm/hHigh 0-29The [facility] Physician GroupComment on above:Result Comment: PERFORMED BY: [place] [id number] PATHOLOGIST TEMPERING KILN TENDER BERNARDA GARCIA M.D.Performed By: #### ESR, CBC, CMP #### [facility] [address]Erythrocyte distribution width Auto (RBC) [Ratio]Ordered By: Christiano Mcdonnell on 27-03-7956Ovpwqrwtetx distribution width (RBC) [Ratio] Erythrocyte distribution width [Ratio] by Automated count11.9-15.3FOhioHealth Southeastern Medical CenterErythrocyte sedimentation rate by Photometric method Ordered By: Christiano Mcdonnell on 57-51-9409MQT Photometric method (Bld) [Velocity] Erythrocyte sedimentation rate by Photometric methodHigh0-29[facility] Memorial HospitalGlobulin Calc (S) [Mass/Vol]Ordered By: Christiano Mcdonnell on 73-84-9666Sjyhscdw (S) [Mass/Vol]Serum globulin measurement by calculation (mass/volume)[facility] HospitalGlucose [Mass/volume] in Serum or PlasmaOrdered By: Christiano Mcdonnell on 59-69-6219Alqiqhe [Mass/Vol]Glucose [Mass/volume] in Serum or RwbxffUksc28-109OmgdvmcckMartin Memorial Hospital Comment on above:ADA recommended reference rangeRandom Glucose Reference Range is dependent on time and content of last meal. Glucose of more than 200 mg/dL in a nonstressed, ambulatory subject supports the diagnosisof Diabetes Mellitus. Hematocrit Auto (Bld) [Volume fraction]Ordered By: Christiano Mcdonnell on 01-07-2025 Hematocrit (Bld) [Volume fraction]Hematocrit [Volume Fraction] of Blood by Automated count34.0-46.4FOhioHealth Southeastern Medical CenterHemoglobin [Mass/volume] in BloodOrdered By: Christiano Mcdonnell on 56-26-4769Gdxvclczfo (Bld) [Mass/Vol]Hemoglobin [Mass/volume] in Blood11.8-15.4FOhioHealth Southeastern Medical CenterLeukocytes [#/volume] corrected for nucleated erythrocytes in Blood by Automated counOrdered By: Christiano Mcdonnell on 21-13-7306HST corrected for nucl RBC Auto (Bld) [#/Vol]Leukocytes [#/volume] corrected for nucleated erythrocytes in Blood by Automated coun3.8-11.6FOhioHealth Southeastern Medical CenterLymphocytes Auto (Bld) [#/Vol]Ordered By: Christiano Mcdonnell on 12-77-1478Dsfalqgbhhl (Bld) [#/Vol]Lymphocytes [#/volume] in Blood by Automated count1.00-4.8[facility] HospitalLymphocytes/100 WBC Auto (Bld)Ordered By: Christiano Mcdonnell on 92-94-8800Tgkilkezmkk/100 WBC (Bld)Lymphocytes/100 leukocytes in Blood by Automated count.[facility] Memorial HospitalMCH Auto (RBC) [Entitic mass] Ordered By: Christiano Mcdonnell on 42-85-7440MQG (RBC) [Entitic mass]MCH [Entitic mass] by Automated count24.7-34.3FOhioHealth Southeastern Medical CenterMCHC Auto (RBC) [Mass/Vol]Ordered By: Christiano Mcdonnell on 21-09-8775RVAG (RBC) [Mass/Vol] MCHC [Mass/volume] by Automated count32.0-35.0[facility] MCV Auto (RBC) [Entitic vol]Ordered By: Christiano Mcdonnell on 08-00-3911UPE (RBC) [Entitic vol]MCV [Entitic volume] by Automated -988FkziubzcpMartin Memorial HospitalMonocytes Auto (Bld) [#/Vol]Ordered By: Christiano Mcdonnell on 43-26-0080Xkoubrdau (Bld) [#/Vol]Automated blood monocyte count0.0-0.8[facility] HospitalMonocytes/100 WBC Auto (Bld)Ordered By: Christiano Mcdonnell on 45-89-6931Hzelzedzd/100 WBC (Bld)Automated monocyte %.[facility] HospitalNeutrophils Auto (Bld) [#/Vol]Ordered By: Christiano Mcdonnell on 01-92-6722Gmqkmrwikkw (Bld) [#/Vol]Neutrophils [#/volume] in Blood by Automated countHigh1.8-7.7FOhioHealth Southeastern Medical CenterNeutrophils/100 WBC Auto (Bld) Ordered By: Christiano Mcdonnell on 41-74-9212Xrzjuvcwwal/100 WBC (Bld)Automated neutrophil %.[facility] HospitalNo Panel InformationOrdered By: Christiano Mcdonnell on 54-29-2931Zeaeegsoq GFR (CKD-EPI)35.718 mL/MinMartin Memorial HospitalPharmacy Creatinine Clearance (ChemN/AFOhioHealth Southeastern Medical CenterNucleated erythrocytes [Presence] in Blood by Automated count Ordered By: Christiano Mcdonnell on 49-43-8755Oefyjtgpr RBC Auto Ql (Bld)Nucleated erythrocytes [Presence] in Blood by Automated count0-0.5FOhioHealth Southeastern Medical CenterPlatelet mean volume Auto (Bld) [Entitic vol]Ordered By: Christiano Mcdonnell on 94-16-1002Uexknasu mean volume (Bld) [Entitic vol]Platelet mean volume [Entitic volume] in Blood by Automated count6.3-10.7FOhioHealth Southeastern Medical CenterPlatelets Auto (Bld) [#/Vol]Ordered By: Christiano Mcdonnell on 01-07-2025 Platelets (Bld) [#/Vol]Platelets [#/volume] in Blood by Automated gddwo577-623 [facility] HospitalPotassium [Moles/volume] in Serum or Plasma Ordered By: Christiano Mcdonnell on 22-12-5528Czkwzbjgu [Moles/Vol]Potassium [Moles/volume] in Serum or Plasma3.5-5.1FOhioHealth Southeastern Medical CenterProtein [Mass/volume] in Serum or PlasmaOrdered By: Christiano Mcdonnell on 29-05-0883Ewpfile [Mass/Vol]Protein [Mass/volume] in Serum or Plasma6.4-8.9Martin Memorial HospitalRBC Auto (Bld) [#/Vol]Ordered By: Christiano Mcdonnell on 73-48-8435VLI (Bld) [#/Vol]Erythrocytes [#/volume] in Blood by Automated count3.60-5.00 [facility]rium Medical Centererum or plasma albumin/globulin mass ratio Ordered By: Christiano Mcdonnell on 60-24-8359Fffcshq/Globulin [Mass ratio]Serum or plasma albumin/globulin mass ratioPremier Health Atrium Medical Centererum or plasma anion gap determinationOrdered By: Christiano Mcdonnell on 73-63-3760Kyyjs gap [Moles/Vol]Serum or plasma anion gap determination6.0-15.0Prem[facility] Atrium Medical Centerodium [Moles/volume] in Serum or PlasmaOrdered By: Christiano Mcdonnell on 44-91-2970Blltwo [Moles/Vol]Sodium [Moles/volume] in Serum or Biskvd187-934 [facility] HospitalUrea nitrogen [Mass/volume] in Serum or Plasma Ordered By: Christiano Mcdonnell on 65-43-2296Kkth nitrogen [Mass/Vol]Urea nitrogen [Mass/volume] in Serum or PlasmaHigh7-25Martin Memorial HospitalWBC Auto (Bld) [#/Vol]Ordered By: Christiano Mcdonnell on 16-13-2506WTY (Bld) [#/Vol] Leukocytes [#/volume] in Blood by Automated count3.8-11.6FOhioHealth Southeastern Medical CenterX-ray reportOrdered By: Butch Quinones on 90-84-1485Thyrb report [facility] [address] [place] [address] [place] [address] XRay Report Signed Patient: Harman Mcleod MR#: [id number] : 1940 Acct:[id number] Age/Sex: 84 / F ADM Date: 5 Loc: ICXD Room: Type: [facility] Attending Dr: Christiano Mcdonnell MD Copies to: Christiano Mcdonnell MD~ Ordering Provider: Christiano Mcdonnell MD Date of Service: 01/07/25 XR/XR knee BI 2V: KNEE PAIN ([id number]) XR/XR hip BI w PEL1V: HIP PAIN ([id number]) XR/XR lumbar spine 2-3V*: LOW BACK PAIN LUMBAR SPINE - 2 views, bilateral hip series 2 views each, bilateral knee wprwhq3ycpin each CLINICAL HISTORY: Severe bilateral knee hip and back pain. History of rheumatoid arthritis. COMPARISON: None FINDINGS: Lumbar spine: Bones are grossly demineralized. Vertebral body heightsappear maintained. Diffuse moderate to severe degenerative disc disease with scattered endplate and facet joint degenerative changes. SI joints demonstrate degenerative change. Bilateral knee series: Right knee demonstrate vascular stent in place. No knee joint effusion. Milddegenerative changes with lateral weightbearing joint space narrowing. Left knee demonstrates moderate degenerative changes with medial weightbearing joint space narrowing. No knee joint effusion or acute bony process. Bilateral hip series: Moderate degenerative changes of both hips without acute bony process. XR/XR lumbar spine 2-3V* IMPRESSION: MODERATE TO SEVERE DIFFUSE DEGENERATIVE DISEASE INVOLVING THE LUMBAR SPINE. MODERATE DEGENERATIVE CHANGES OF THE HIPS AND LEFT KNEE WITHOUT ACUTE BONY PROCESS. MILD DEGENERATIVE CHANGES OF THE RIGHT KNEE. Impression dictated by: Butch Quinones Jr., D.OMedardo 01/07/2025 4:46 PM Dictation Location: [place] [address] Transcribed By: [facility] 01/07/25 164 Dictated By: Butch Quinones Jr DO 01/07/251643 Signed By: 01/07/25 164 Martin Memorial HospitalXR knee BI 2Von 06-33-7736WW knee BI 2V [facility] [address] [place] [address] [place] [address] XRay Report Signed Patient: Harman Mcleod MR#: [id number] : 1940 Acct:[id number] Age/Sex: 84 / F ADM Date: 01/07/25 Loc: ICXD Room: Type: [facility] Attending Dr: Christiano Mcdonnell MD Copies to: Christiano Mcdonnell MD Ordering Provider: Christiano Mcdonnell MD Date of Service: 01/07/25 XR/XR knee BI 2V: KNEE PAIN ([id number]) XR/XR hip BI w PEL1V: HIP PAIN ([id number]) XR/XR lumbar spine 2-3V*: LOW BACK PAIN LUMBAR SPINE - 2 views, bilateral hip series 2 views each, bilateral knee series 3views each CLINICAL HISTORY: Severe bilateral knee hip and back pain. History of rheumatoid arthritis. COMPARISON: None FINDINGS: Lumbar spine: Bones are grossly demineralized. Vertebral body heights appear maintained. Diffuse moderate to severe degenerative disc disease with scattered endplate and facet joint degenerative changes. SI joints demonstrate degenerative change. Bilateral knee series: Right knee demonstrate vascular stent in place. No knee joint effusion. Mild degenerative changes with lateral weightbearing joint space narrowing. Left knee demonstrates moderate degenerative changes with medial weightbearing joint space narrowing. No knee joint effusion or acute bony process. Bilateral hip series: Moderate degenerative changes of both hips without acute bony process. XR/XR lumbar spine 2-3V* IMPRESSION: MODERATE TO SEVERE DIFFUSE DEGENERATIVE DISEASE INVOLVING THE LUMBAR SPINE. MODERATE DEGENERATIVE CHANGES OF THE HIPS AND LEFT KNEE WITHOUT ACUTE BONY PROCESS. MILD DEGENERATIVE CHANGES OF THE RIGHT KNEE. Impression dictated by: Butch Quinones Jr., Velvet 01/07/2025 4:46 PM Dictation Location: [place] [address] Transcribed By: [facility] 01/07/251645 Dictated By: Butch Quinones Jr, DO 01/07/251643 Signed By: 01/07/251645[facility] Physician GroupAlanine aminotransferase [Enzymatic activity/volume] in Serum or PlasmaOrdered By: Christiano Mcdonnell on 73-81-2668PDX [Catalytic activity/Vol]Alanine aminotransferase [Enzymatic activity/volume] in Serum or Plasma7-52[facility] Memorial HospitalAlbumin [Mass/volume] in Serum or Plasma by Bromocresol green (BCG) dye binding metho Ordered By: Christiano Mcdonnell on 93-54-2486Umsjxbq BCG dye [Mass/Vol]Albumin [Mass/volume] in Serum or Plasma by Bromocresol green (BCG) dye binding metho 3.5-5.7FOhioHealth Southeastern Medical CenterAlkaline phosphatase [Enzymatic activity/volume] in Serum or PlasmaOrdered By: Christiano Mcdonnell on 06-40-8265WSP [Catalytic activity/Vol]Alkaline phosphatase [Enzymatic activity/volume] in Serum or Vxzbwu44-374WztnnyahkMartin Memorial HospitalAspartate aminotransferase [Enzymatic activity/volume] in Serum or PlasmaOrdered By: Christiano Mcdonnell on 41-29-6530ZOD [Catalytic activity/Vol]Aspartate aminotransferase [Enzymatic activity/volume] in Serum or Dzmeyh34-39VhgrfycvjMartin Memorial Hospital Basophils Auto (Bld) [#/Vol]Ordered By: Christiano Mcdonnell on 47-16-8415Rjxybxuol (Bld) [#/Vol]Automated basophil count0.0-0.2FOhioHealth Southeastern Medical Center Basophils/100 WBC Auto (Bld)Ordered By: Christiano Mcdonnell on 12-10-2024 Basophils/100 WBC (Bld)Automated basophil %.[facility] Bilirubin.total [Mass/volume] in Serum or PlasmaOrdered By: Christiano Mcdonnell on 49-63-3297Vpinojvea [Mass/Vol]Bilirubin.total [Mass/volume] in Serum or Plasma 0.3-1.0[facility] Memorial HospitalCalcium [Mass/volume] in Serum or Plasma Ordered By: Christiano Mcdonnell on 92-69-1581Iyueuxx [Mass/Vol]Calcium [Mass/volume] in Serum or Plasma8.6-10.3FOhioHealth Southeastern Medical CenterCarbon dioxide, total [Moles/volume] in Serum or PlasmaOrdered By: Christiano Mcdonnell on 35-02-5531OQ6 [Moles/Vol]Carbon dioxide, total [Moles/volume] in Serum or AmpqvyAghy31.0-31.0 [facility] HospitalChloride [Moles/volume] in Serum or Plasma Ordered By: Christiano Mcdnonell on 92-34-0725Mxxfafae [Moles/Vol]Chloride [Moles/volume] in Serum or Ixzntg34-569ZwmfgflebMartin Memorial HospitalComplete Blood Count Auto Diffon 86-08-6409Haaclgcfr (Bld) [#/Vol]0.0 10*3/uLNormal 0.0-0.2The [facility] Physician GroupComment on above:Performed By: #### ESR, CBC, CMP #### [facility] [address] [place] [id number] USABasophils/100 WBC (Bld)0.4 %Normal.The [facility] Physician GroupComment on above:Performed By: #### ESR, CBC, CMP #### [facility] [address] [place] [address] USAEosinophils (Bld) [#/Vol]0.3 10*3/uLNormal0.0-0.45The [facility]ly [facility] Physician GroupComment on above:Performed By: #### ESR, CBC, CMP #### [facility] [address] [place] [id number] USAEosinophils/100 WBC (Bld)3.2 %Normal.The [facility] Physician GroupComment on above:Performed By: #### ESR, CBC, CMP #### [facility] [address] [place] [address] USAErythrocyte distribution width (RBC) [Ratio]14.9 %Normal 11.9-15.3The [facility] Physician GroupComment on above:Performed By: #### ESR, CBC, CMP #### [facility] [address] [place] [address] USAHematocrit (Bld) [Volume fraction]31.9 %Low34.0-46.4The [facility] Physician GroupComment on above:Performed By: #### ESR, CBC, CMP #### [place] [address] USAHemoglobin (Bld) [Mass/Vol]10.7 g/dLLow11.8-15.4The [facility] Physician GroupComment on above:Performed By: #### ESR, CBC, CMP #### [place] [address] USALymphocytes (Bld) [#/Vol]2.7 10*3/uLNormal1.00-4.8The [facility] Physician GroupComment on above:Performed By: #### ESR, CBC, CMP #### [place] [address] USALymphocytes/100 WBC (Bld)32.6 %Normal.The [facility] Physician GroupComment on above:Performed By: #### ESR, CBC, CMP #### [place] [address] USAMCH (RBC) [Entitic mass]30.9 bbVfvrch77.7-34.3The [facility] Physician GroupComment on above:Performed By: #### ESR, CBC, CMP #### [place] [address] USAMCV (RBC) [Entitic vol]92.4 vFStrili68-147Ieq [facility] Physician GroupComment on above:Performed By: #### ESR, CBC, CMP #### [place] [address] USAMean Corpuscular HGB Conc33.5 g/yVDlfeea74.0-35.0The [facility] Physician GroupComment on above:Performed By: #### ESR, CBC, CMP #### [place] [address] USAMonocytes (Bld) [#/Vol]0.7 10*3/uLNormal0.0-0.8The [facility] Physician GroupComment on above:Performed By: #### ESR, CBC, CMP #### [place] [address] USAMonocytes/100 WBC (Bld)8.9 %Normal.The [facility] Physician GroupComment on above:Performed By: #### ESR, CBC, CMP #### [place] [address] USANeutrophils (Bld) [#/Vol]4.6 10*3/uLNormal1.8-7.7The [facility] Physician GroupComment on above:Performed By: #### ESR, CBC, CMP #### [place] [address] USANeutrophils/100 WBC (Bld)54.9 %Normal.The [facility] Physician GroupComment on above:Performed By: #### ESR, CBC, CMP #### [place] [address] USANRBC%0.3 /100{WBC}Normal0-0.5The [facility] Comment on above:Performed By: #### ESR, CBC, CMP #### [place] [address] USAPlatelet mean volume (Bld) [Entitic vol]8.5 fLNormal 6.3-10.7The [facility] Physician GroupComment on above:Performed By: #### ESR, CBC, CMP #### [place] [address] USAPlatelets (Bld) [#/Vol]244 10*3/nIYtszph761-280Zrc [facility] Physician GroupComment on above:Performed By: #### ESR, CBC, CMP #### [place] [address] USARBC (Bld) [#/Vol]3.45 10*6/uLLow3.60-5.00The [facility] Physician GroupComment on above:Performed By: #### ESR, CBC, CMP #### [place] [address] USAWBC (Bld) [#/Vol]8.3 10*3/uLNormal3.8-11.6The [facility] Physician GroupComment on above:Performed By: #### ESR, CBC, CMP #### [place] [address] USAComprehensive Metabolic Panelon 42-99-5959Skygpnx [Mass/Vol]4.0 g/dLNormal3.5-5.7The [facility] Physician GroupComment on above: Performed By: #### ESR, CBC, CMP #### [place] [address] USAAlbumin/Globulin [Mass ratio]1.6 {ratio}NormalThe [facility] Physician GroupComment on above:Performed By: #### ESR, CBC, CMP #### [place] [address] USAALP [Catalytic activity/Vol]92 U/LVnkndw95-262Fpa [facility] Physician GroupComment on above:Result Comment: PERFORMED BY: [place] [address] PATHOLOGIST TEMPERING KILN TENDER BERNARDA GARCIA M.D.Performed By: #### ESR, CBC, CMP #### [place] [address] USAALT [Catalytic activity/Vol]12 U/LNormal7-52The [facility] Physician GroupComment on above:Performed By: #### ESR, CBC, CMP #### [place] [address] USAAnion gap [Moles/Vol]14.0 mmol/LNormal6.0-15.0The [facility] Physician GroupComment on above:Performed By: #### ESR, CBC, CMP #### [place] [address] USAAST [Catalytic activity/Vol]16 U/NZlwayi56-27Hpj [facility] Physician GroupComment on above:Performed By: #### ESR, CBC, CMP #### [address] [place] [address] USABilirubin [Mass/Vol]0.4 mg/dLNormal0.3-1.0The [facility] Physician GroupComment on above:Performed By: #### ESR, CBC, CMP #### [facility] [address] [place] [address] USACalcium [Mass/Vol]9.8 mg/dLNormal8.6-10.3The [facility] Physician GroupComment on above:Performed By: #### ESR, CBC, CMP #### [facility] [address] [place] [address] USAChloride [Moles/Vol]101 mmol/LFbgfew25-591Xlb [facility] Physician GroupComment on above:Performed By: #### ESR, CBC, CMP #### [facility] [address] [place] [address] USACO2 [Moles/Vol]32.6 mmol/LHigh21.0-31.0The [facility] Physician GroupComment on above:Performed By: #### ESR, CBC, CMP #### [facility] [address] [place] [address] USACreatinine [Mass/Vol]1.26 mg/dLHigh0.60-1.20The [facility] Physician GroupComment on above:Performed By: #### ESR, CBC, CMP #### [place] [address] USAEstimated GFR42.625 mL/MinNormSelect Medical [facility] Physician [facility] Medical CenterComment on above:Performed By: #### ESR, CBC, CMP #### [facility] [address] [place] [address] USAGlobulin (S) [Mass/Vol]2.5 g/dLNormSelect Medical OhioHealth [facility] Physician GroupComment on above:Performed By: #### ESR, CBC, CMP #### [place] [address] USAGlucose [Mass/Vol]179 mg/kNGfom13-336Khz [facility] Physician GroupComment on above:Result Comment: Random Glucose Reference Range is dependent on time and content of last meal. Glucose of more than 200 mg/dL in a nonstressed, ambulatory subject supports the diagnosis of Diabetes Mellitus. ADA recommended reference rangePerformed By: #### ESR, CBC, CMP #### [facility] [address] [place] [address] USAPotassium [Moles/Vol]3.6 mmol/LNormal3.5-5.1The [facility] Physician GroupComment on above:Performed By: #### ESR, CBC, CMP #### [facility] [address] [place] [address] USAProtein [Mass/Vol]6.5 g/dLNormal6.4-8.9The [facility] Physician GroupComment on above:Performed By: #### ESR, CBC, CMP #### [facility] [address] [place] [address] USASodium [Moles/Vol]144 mmol/WKvexfu381-662Rde [facility] Physician GroupComment on above:Performed By: #### ESR, CBC, CMP #### [facility] [address] [place] [address] USAUrea nitrogen [Mass/Vol]28 mg/dLHigh7-25The [facility] Physician GroupComment on above:Performed By: #### ESR, CBC, CMP #### [facility] [address] [place] [address] USACreatinine [Mass/volume] in Serum or PlasmaOrdered By: Christiano Mcdonnell on 90-76-2044Wndgfidtqp [Mass/Vol]Creatinine [Mass/volume] in Serum or PlasmaHigh0.60-1.20[facility] HospitalEosinophils Auto (Bld) [#/Vol]Ordered By: Christiano Mcdonnell on 05-09-7212Cfqtfckhuki (Bld) [#/Vol] Automated eosinophil count0.0-0.45[facility] Eosinophils/100 WBC Auto (Bld)Ordered By: Christiano Mcdonnell on 12-10-2024 Eosinophils/100 WBC (Bld)Automated eosinophil %.[facility] Memorial HospitalErythrocyte Sedimentation Rateon 09-86-3195VVK (Bld) [Velocity]40 mm/hHigh 0-29The [facility] Physician GroupComment on above:Result Comment: PERFORMED BY: [facility] [address] [place] [id number] PATHOLOGIST TEMPERING KILN TENDER BERNARDA GARCIA M.D.Performed By: #### ESR, CBC, CMP #### [place] [id number] [facility]ALErythrocyte distribution width Auto (RBC) [Ratio]Ordered By: Christiano Mcdonnell on 59-10-9560Ggiguovfcbb distribution width (RBC) [Ratio] Erythrocyte distribution width [Ratio] by Automated count11.9-15.3FOhioHealth Southeastern Medical CenterErythrocyte sedimentation rate by Photometric method Ordered By: Christiano Mcdonnell on 98-96-6290HJI Photometric method (Bld) [Velocity] Erythrocyte sedimentation rate by Photometric methodHigh0-29[facility] Memorial HospitalGlobulin Calc (S) [Mass/Vol]Ordered By: Christiano Mcdonnell on 37-75-9921Eidhqina (S) [Mass/Vol]Serum globulin measurement by calculation (mass/volume)[facility] HospitalGlucose [Mass/volume] in Serum or PlasmaOrdered By: Christiano Mcdonnell on 00-23-7470Ozczriz [Mass/Vol]Glucose [Mass/volume] in Serum or WqypvzOntj99-934VzaseofiuMartin Memorial Hospital Comment on above:ADA recommended reference rangeRandom Glucose Reference Range is dependent on time and content of last meal. Glucose of more than 200 mg/dL in a nonstressed, ambulatory subject supports the diagnosisof Diabetes Mellitus. Hematocrit Auto (Bld) [Volume fraction]Ordered By: Christiano Mcdonnell on 12-10-2024 Hematocrit (Bld) [Volume fraction]Hematocrit [Volume Fraction] of Blood by Automated gvqwtUpm72.0-46.4FOhioHealth Southeastern Medical CenterHemoglobin [Mass/volume] in BloodOrdered By: Christiano Mcdonnell on 09-79-5547Usdwsyoshb (Bld) [Mass/Vol]Hemoglobin [Mass/volume] in GafgwAci79.8-15.4FOhioHealth Southeastern Medical CenterLeukocytes [#/volume] corrected for nucleated erythrocytes in Blood by Automated counOrdered By: Christiano Mcdonnell on 43-25-0811MKZ corrected for nucl RBC Auto (Bld) [#/Vol]Leukocytes [#/volume] corrected for nucleated erythrocytes in Blood by Automated coun3.8-11.6FOhioHealth Southeastern Medical Center Lymphocytes Auto (Bld) [#/Vol]Ordered By: Christiano Mcdonnell on 12-10-2024 Lymphocytes (Bld) [#/Vol]Lymphocytes [#/volume] in Blood by Automated count 1.00-4.8[facility] HospitalLymphocytes/100 WBC Auto (Bld)Ordered By: Christiano Mcdonnell on 84-18-5460Rjvjzqnzyrh/100 WBC (Bld)Lymphocytes/100 leukocytes in Blood by Automated count.[facility] Memorial HospitalMCH Auto (RBC) [Entitic mass]Ordered By: Christiano Mcdonnell on 42-99-1399YTD (RBC) [Entitic mass]MCH [Entitic mass] by Automated count24.7-34.3FOhioHealth Southeastern Medical CenterMCHC Auto (RBC) [Mass/Vol]Ordered By: Christiano Mcdonnell on 92-58-9274SXPL (RBC) [Mass/Vol]MCHC [Mass/volume] by Automated count32.0-35.0[facility] HospitalMCV Auto (RBC) [Entitic vol]Ordered By: Christiano Mcdonnell on 14-78-8939SRI (RBC) [Entitic vol]MCV [Entitic volume] by Automated swqzo34-489 [facility] HospitalMonocytes Auto (Bld) [#/Vol]Ordered By: Christiano Mcdonnell on 40-69-1492Sznrjuikt (Bld) [#/Vol]Automated blood monocyte count 0.0-0.8[facility] HospitalMonocytes/100 WBC Auto (Bld)Ordered By: Christiano Mcdonnell on 99-40-5791Gjkijzisr/100 WBC (Bld)Automated monocyte %. [facility] HospitalNeutrophils Auto (Bld) [#/Vol]Ordered By: Christiano Mcdonnell on 02-43-7034Zlxciabexvd (Bld) [#/Vol]Neutrophils [#/volume] in Blood by Automated count1.8-7.7FOhioHealth Southeastern Medical CenterNeutrophils/100 WBC Auto (Bld)Ordered By: Christiano Mcdonnell on 35-47-5676Tfykydverrk/100 WBC (Bld) Automated neutrophil %.[facility] HospitalNo Panel Information Ordered By: Christiano Mcdonnell on 86-90-1906Nsxouzbwy GFR (CKD-EPI)42.625 mL/Min [facility] HospitalPharmacy Creatinine Clearance (ChemN/AFOhioHealth Southeastern Medical CenterNucleated erythrocytes [Presence] in Blood by Automated countOrdered By: Christiano Mcdonnell on 57-92-3574Iazpinqzm RBC Auto Ql (Bld) Nucleated erythrocytes [Presence] in Blood by Automated count0-0.5FOhioHealth Southeastern Medical CenterPlatelet mean volume Auto (Bld) [Entitic vol]Ordered By: Christiano Mcdonnell on 81-04-1278Bujrgujz mean volume (Bld) [Entitic vol]Platelet mean volume [Entitic volume] in Blood by Automated count6.3-10.7FOhioHealth Southeastern Medical CenterPlatelets Auto (Bld) [#/Vol]Ordered By: Christiano Mcdonnell on 20-94-0436Cpagkdtzq (Bld) [#/Vol]Platelets [#/volume] in Blood by Automated afshy354-947PnwyscggfMartin Memorial HospitalPotassium [Moles/volume] in Serum or PlasmaOrdered By: Christiano Mcdonnell on 66-05-6547Nswfxgvfv [Moles/Vol]Potassium [Moles/volume] in Serum or Plasma3.5-5.1FOhioHealth Southeastern Medical CenterProtein [Mass/volume] in Serum or PlasmaOrdered By: Christiano Mcdonnell on 40-35-8490Uodmhfu [Mass/Vol]Protein [Mass/volume] in Serum or Plasma6.4-8.9[facility] HospitalRBC Auto (Bld) [#/Vol]Ordered By: Christiano Mcdonnell on 47-25-4450WPJ (Bld) [#/Vol]Erythrocytes [#/volume] in Blood by Automated countLow3.60-5.00 [facility] Medical Centererum or plasma albumin/globulin mass ratio Ordered By: Christiano Mcdonnell on 73-33-9739Pjlwarw/Globulin [Mass ratio]Serum or plasma albumin/globulin mass ratioPremier Health Atrium Medical Centererum or plasma anion gap determinationOrdered By: Christiano Mcdonnell on 42-26-0628Hirsf gap [Moles/Vol]Serum or plasma anion gap determination6.0-15.0[facility] Medical Centerodium [Moles/volume] in Serum or PlasmaOrdered By: Christiano Martinrow on 45-47-7572Fjqpsf [Moles/Vol]Sodium [Moles/volume] in Serum or Dqptrl037-149 [facility] HospitalUrea nitrogen [Mass/volume] in Serum or Plasma Ordered By: Christiano Mcdonnell on 72-97-1900Pmim nitrogen [Mass/Vol]Urea nitrogen [Mass/volume] in Serum or PlasmaHigh7-25[facility] HospitalWBC Auto (Bld) [#/Vol]Ordered By: Christiano Martinrow on 09-27-9521MDL (Bld) [#/Vol] Leukocytes [#/volume] in Blood by Automated count3.8-11.6FOhioHealth Southeastern Medical CenterOffice Visiton 17-27-3901Rlnbdm-up [id number] Harman Mcleod Berna 1940 F Date Provider Department Center 11/05/2024 BRIAN FLANNERY [facility] Family History Problem Relation Age of Onset Stroke Mother Coronary artery disease Father Heart attack Father Family Status - Relation Status Age at Mother Father Level of Service:[address] [place] OFFICE/OUTPATIENT [facility]LISHED [facility]ANA Antinuclear Antibodieson 10-29-2024 Antinuclear Abs, IFANegativeNormal.The [facility] Physician GroupComment on above:Result Comment: Negative <1:80 Borderline 1:80 Positive >1:80 ICAP nomenclature: AC-0 For more information about Hep-2 cell patterns use ANApatterns.org, the official website for the International Consensus on Antinuclear Antibody (TYLER) Patterns (ICAP). Performed at: - [facility] [address] [id number] [employer] Developer: Esteban Martinez PhD, Phone: [phone] PERFORMED BY: [place] [address] PATHOLOGIST TEMPERING KILN TENDER BERNARDA GARCIA M.D.Performed By: #### CBC, CRP, CMP, URIC, ESR #### [place] [address] [place] #### TYLER #### [facility] ,Alanine aminotransferase [Enzymatic activity/volume] in Serum or PlasmaOrdered By: Christiano Mcdonnell on 69-60-5687RID [Catalytic activity/Vol]Alanine aminotransferase [Enzymatic activity/volume] in Serum or Plasma7-52[facility] HospitalAlbumin [Mass/volume] in Serum or Plasma by Bromocresol green (BCG) dye binding methoOrdered By: Christiano Mcdonnell on 48-06-4098Iaxfwop BCG dye [Mass/Vol]Albumin [Mass/volume] in Serum or Plasma by Bromocresol green (BCG) dye binding metho3.5-5.7FOhioHealth Southeastern Medical CenterAlkaline phosphatase [Enzymatic activity/volume] in Serum or PlasmaOrdered By: Christiano Mcdonnell on 69-55-6524XZF [Catalytic activity/Vol]Alkaline phosphatase [Enzymatic activity/volume] in Serum or Jwaiiq35-149GbrkofcbmMartin Memorial Hospital Aspartate aminotransferase [Enzymatic activity/volume] in Serum or PlasmaOrdered By: Christiano Mcdonnell on 78-40-2043ZUJ [Catalytic activity/Vol]Aspartate aminotransferase [Enzymatic activity/volume] in Serum or Uwgadg06-35JybzpwcbiMartin Memorial HospitalBasophils Auto (Bld) [#/Vol]Ordered By: Christiano Mcdonnell on 61-95-2742Dxqhnriiu (Bld) [#/Vol]Automated basophil count0.0-0.2FOhioHealth Southeastern Medical CenterBasophils/100 WBC Auto (Bld)Ordered By: Christiano Mcdonnell on 57-16-1978Pttaqbpxu/100 WBC (Bld)Automated basophil %.[facility] HospitalBilirubin.total [Mass/volume] in Serum or PlasmaOrdered By: Christiano Mcdonnell on 32-38-8207Sggglfani [Mass/Vol]Bilirubin.total [Mass/volume] in Serum or Plasma0.3-1.0[facility] HospitalC reactive protein [Mass/volume] in Serum or PlasmaOrdered By: Christiano Mcdonnell on 29-78-0067VDZ [Mass/Vol]C reactive protein [Mass/volume] in Serum or PlasmaHigh0.0-0.5 [facility] HospitalC-Reactive Proteinon 86-56-6822C-Reactive Protein4.6 mg/dLHigh0.0-0.5The [facility] Physician GroupComment on above:Result Comment: PERFORMED BY: [place] [address] PATHOLOGIST TEMPERING KILN TENDER BERNARDA GARCIA M.D.Performed By: #### CBC, CRP, CMP, URIC, ESR #### [address] #### TYLER #### [facility] ,Calcium [Mass/volume] in Serum or PlasmaOrdered By: Christiano Mcdonnell on 54-83-8956Vwmmkdl [Mass/Vol]Calcium [Mass/volume] in Serum or Plasma8.6-10.3 [facility] HospitalCarbon dioxide, total [Moles/volume] in Serum or PlasmaOrdered By: Christiano Mcdonnell on 33-91-8508SY9 [Moles/Vol]Carbon dioxide, total [Moles/volume] in Serum or Ckhqzz27.0-31.0[facility] HospitalChloride [Moles/volume] in Serum or PlasmaOrdered By: Christiano Mcdonnell on 31-37-5739Jrruewpw [Moles/Vol]Chloride [Moles/volume] in Serum or Tmcagb56-794 [facility] HospitalComplete Blood Count Auto Diffon 10-29-2024 Basophils (Bld) [#/Vol]0.1 10*3/uLNormal0.0-0.2The [facility] Comment on above:Performed By: #### CBC, CRP, CMP, URIC, ESR #### [place] [address] [place] #### TYLER #### [facility] ,Basophils/100 WBC (Bld)0.5 %Normal.The [facility] Physician GroupComment on above:Performed By: #### CBC, CRP, CMP, URIC, ESR #### [facility] [address] [place] [address] [place] #### TYLER #### [facility] ,Eosinophils (Bld) [#/Vol]0.1 10*3/uLNormal0.0-0.45The [facility] Comment on above:Performed By: #### CBC, CRP, CMP, URIC, ESR #### [place] [address] [place] #### TYLER #### [facility] ,Eosinophils/100 WBC (Bld)1.3 %Normal.The [facility] Physician GroupComment on above:Performed By: #### CBC, CRP, CMP, URIC, ESR #### [place] [address] [place] #### TYLER #### [facility] ,Erythrocyte distribution width (RBC) [Ratio]15.5 %High11.9-15.3The [facility] Physician GroupComment on above:Performed By: #### CBC, CRP, CMP, URIC, ESR #### [address] #### TYLER #### [facility] ,Hematocrit (Bld) [Volume fraction]32.0 %Low34.0-46.4The [facility] Physician GroupComment on above:Performed By: #### CBC, CRP, CMP, URIC, ESR #### [place] [address] [place] #### TYLER #### [facility] ,Hemoglobin (Bld) [Mass/Vol]10.5 g/dLLow11.8-15.4The [facility] Comment on above:Performed By: #### CBC, CRP, CMP, URIC, ESR #### [place] [address] [place] #### TYLER #### [facility] ,Lymphocytes (Bld) [#/Vol]2.5 10*3/uLNormal1.00-4.8The [facility] Comment on above:Performed By: #### CBC, CRP, CMP, URIC, ESR #### [place] [address] [place] #### TYLER #### [facility] ,Lymphocytes/100 WBC (Bld)22.2 %Normal.The [facility] Physician GroupComment on above:Performed By: #### CBC, CRP, CMP, URIC, ESR #### [place] [address] [place] #### TYLER #### [facility] ,MCH (RBC) [Entitic mass]30.1 cqBomscg74.7-34.3The [facility] Comment on above:Performed By: #### CBC, CRP, CMP, URIC, ESR #### [address] #### TYLER #### [facility] ,MCV (RBC) [Entitic vol]91.7 rBWmwfuy84-858Nea [facility] Physician GroupComment on above:Performed By: #### CBC, CRP, CMP, URIC, ESR #### [address] #### TYLER #### [facility] ,Mean Corpuscular HGB Conc32.8 g/dBUuydjk90.0-35.0The [facility] Comment on above:Performed By: #### CBC, CRP, CMP, URIC, ESR #### [address] #### TYLER #### [facility] ,Monocytes (Bld) [#/Vol]0.8 10*3/uLNormal0.0-0.8The [facility] Comment on above:Performed By: #### CBC, CRP, CMP, URIC, ESR #### [place] [address] [place] #### TYLER #### [facility] ,Monocytes/100 WBC (Bld)7.4 %Normal.The [facility] Physician GroupComment on above:Performed By: #### CBC, CRP, CMP, URIC, ESR #### [place] [address] [place] #### TYLER #### [facility] ,Neutrophils (Bld) [#/Vol]7.6 10*3/uLNormal1.8-7.7The [facility] Comment on above:Performed By: #### CBC, CRP, CMP, URIC, ESR #### [facility] [address] [place] [address] #### TYLER #### [facility] ,Neutrophils/100 WBC (Bld)68.6 %Normal.The [facility] Physician GroupComment on above:Performed By: #### CBC, CRP, CMP, URIC, ESR #### [facility] [address] [place] [address] #### TYLER #### [facility] ,NRBC%0.1 /100{WBC}Normal0-0.5The [facility] Physician GroupComment on above: Performed By: #### CBC, CRP, CMP, URIC, ESR #### [facility] [address] [place] [address] [place] #### TYLER #### [facility] ,Platelet mean volume (Bld) [Entitic vol]7.9 fLNormal6.3-10.7The [facility] Physician GroupComment on above:Performed By: #### CBC, CRP, CMP, URIC, ESR #### [address] #### TYLER #### [facility] ,Platelets (Bld) [#/Vol]280 10*3/eLWneaut617-583Kgq [facility] Comment on above:Performed By: #### CBC, CRP, CMP, URIC, ESR #### [facility] [address] [place] [address] [place] #### TYLER #### [facility] ,RBC (Bld) [#/Vol]3.49 10*6/uLLow3.60-5.00The [facility] Physician GroupComment on above:Performed By: #### CBC, CRP, CMP, URIC, ESR #### [address] #### TYLER #### [facility] ,WBC (Bld) [#/Vol]11.1 10*3/uLNormal3.8-11.6The [facility] Physician GroupComment on above:Performed By: #### CBC, CRP, CMP, URIC, ESR #### [address] #### TYLER #### [facility] ,Comprehensive Metabolic Panelon 54-59-5105Tiqlbmn [Mass/Vol]3.7 g/dLNormal 3.5-5.7The [facility] Physician GroupComment on above:Performed By: #### CBC, CRP, CMP, URIC, ESR #### [address] #### TYLER #### [facility] ,Albumin/Globulin [Mass ratio]1.4 {ratio}NormalThe [facility] Comment on above:Performed By: #### CBC, CRP, CMP, URIC, ESR #### [address] #### TYLER #### [facility] ,ALP [Catalytic activity/Vol]78 U/LMadoyi47-450Oeu [facility] Comment on above:Performed By: #### CBC, CRP, CMP, URIC, ESR #### [address] #### TYLER #### [facility] ,ALT [Catalytic activity/Vol]11 U/LNormal7-52The [facility] Comment on above:Performed By: #### CBC, CRP, CMP, URIC, ESR #### [address] #### TYLER #### [facility] ,Anion gap [Moles/Vol]13.8 mmol/LNormal6.0-15.0The [facility] Comment on above:Performed By: #### CBC, CRP, CMP, URIC, ESR #### [facility] [address] [place] [address] #### TYLER #### [facility] ,AST [Catalytic activity/Vol]13 U/FXeqcmp79-44Nvo [facility] Comment on above:Performed By: #### CBC, CRP, CMP, URIC, ESR #### [facility] [address] [place] [address] [place] #### TYLER #### [facility] ,Bilirubin [Mass/Vol]0.4 mg/dLNormal0.3-1.0The [facility] Physician GroupComment on above:Performed By: #### CBC, CRP, CMP, URIC, ESR #### [address] #### TYLER #### [facility] ,Calcium [Mass/Vol]9.3 mg/dLNormal8.6-10.3The [facility] Physician GroupComment on above:Performed By: #### CBC, CRP, CMP, URIC, ESR #### [facility] [address] [place] [address] [place] #### TYLER #### [facility] ,Chloride [Moles/Vol]100 mmol/ECvzffl41-613Bmp [facility] Physician GroupComment on above:Performed By: #### CBC, CRP, CMP, URIC, ESR #### [facility] [address] [place] [address] [place] #### TYLER #### [facility] ,CO2 [Moles/Vol]30.5 mmol/PYxoghm53.0-31.0The [facility] Physician GroupComment on above:Performed By: #### CBC, CRP, CMP, URIC, ESR #### [facility] [address] [place] [address] [place] #### TYLER #### [facility] ,Creatinine [Mass/Vol]1.29 mg/dLHigh0.60-1.20The [facility] Comment on above:Performed By: #### CBC, CRP, CMP, URIC, ESR #### [facility] [address] [place] [address] [place] #### TYLER #### [facility] ,Estimated GFR41.438 mL/MinNoAtrium Health Anson Physician GroupComment on above: Performed By: #### CBC, CRP, CMP, URIC, ESR #### [place] [address] [place] #### TYLER #### [facility] ,Globulin (S) [Mass/Vol]2.7 g/dLNoAtrium Health Anson Physician GroupComment on above:Performed By: #### CBC, CRP, CMP, URIC, ESR #### [address] #### TYLER #### [facility] ,Glucose [Mass/Vol]134 mg/aBCchn28-653Pmm [facility] Physician GroupComment on above:Result Comment: Random Glucose Reference Range is dependent on time and content of last meal. Glucose of more than 200 mg/dL in a nonstressed, ambulatory subject supports the diagnosis of Diabetes Mellitus. ADA recommended reference rangePerformed By: #### CBC, CRP, CMP, URIC, ESR #### [place] [address] [place] #### TYLER #### [facility] ,Potassium [Moles/Vol]3.3 mmol/LLow3.5-5.1The [facility] Physician GroupComment on above:Performed By: #### CBC, CRP, CMP, URIC, ESR #### [place] [address] [place] #### TYLER #### [facility] ,Protein [Mass/Vol]6.4 g/dLNormal6.4-8.9The [facility] Physician GroupComment on above:Performed By: #### CBC, CRP, CMP, URIC, ESR #### [address] [address] [place] #### TYLER #### [facility] ,Sodium [Moles/Vol]141 mmol/ZLsvtsq219-836Orw [facility] Physician GroupComment on above:Performed By: #### CBC, CRP, CMP, URIC, ESR #### [place] [address] [place] #### TYLER #### [facility] ,Urea nitrogen [Mass/Vol]21 mg/dLNormal7-25The [facility] Physician GroupComment on above:Performed By: #### CBC, CRP, CMP, URIC, ESR #### [facility] [address] [place] [address] [place] #### TYLER #### [facility] ,Creatinine [Mass/volume] in Serum or PlasmaOrdered By: Christiano Mcdonnell on 93-88-8273Oqhegvjeqs [Mass/Vol]Creatinine [Mass/volume] in Serum or PlasmaHigh 0.60-1.20[facility] HospitalEosinophils Auto (Bld) [#/Vol]Ordered By: Christiano Mcdonnell on 77-00-5029Wmxxenyhfdc (Bld) [#/Vol]Automated eosinophil count0.0-0.45[facility] HospitalEosinophils/100 WBC Auto (Bld) Ordered By: Christiano Mcdonnell on 89-79-5516Svjskiimlvo/100 WBC (Bld)Automated eosinophil %.[facility] HospitalErythrocyte Sedimentation Rateon 79-05-4292PTU (Bld) [Velocity]78 mm/hHigh0-29The [facility] Comment on above:Result Comment: PERFORMED BY: [place] [address] PATHOLOGIST TEMPERING KILN TENDER BERNARDA GARCIA M.D.Performed By: #### CBC, CRP, CMP, URIC, ESR #### [place] [address] [place] #### TYLER #### [facility] ,Erythrocyte distribution width Auto (RBC) [Ratio]Ordered By: Christiano Mcdonnell on 03-61-9507Yahmndazwix distribution width (RBC) [Ratio]Erythrocyte distribution width [Ratio] by Automated juwxxTfux75.9-15.3FOhioHealth Southeastern Medical Center Erythrocyte sedimentation rate by Photometric methodOrdered By: Christiano Mcdonnell on 20-44-8651KQH Photometric method (Bld) [Velocity]Erythrocyte sedimentation rate by Photometric methodHigh0-29[facility] Memorial HospitalGlobulin Calc (S) [Mass/Vol]Ordered By: Christiano Mcdonnell on 69-80-6853Tjaxbxty (S) [Mass/Vol] Serum globulin measurement by calculation (mass/volume)[facility] Memorial HospitalGlucose [Mass/volume] in Serum or PlasmaOrdered By: Christiano Mcdonnell on 70-76-0518Gxydmlv [Mass/Vol]Glucose [Mass/volume] in Serum or PlasmaHigh 70-100[facility] HospitalComment on above:ADA recommended reference rangeRandom Glucose Reference Range is dependent on time and content of last meal. Glucose of more than 200 mg/dL in a nonstressed, ambulatory subject supports the diagnosisof Diabetes Mellitus.Hematocrit Auto (Bld) [Volume fraction]Ordered By: Christiano Mcdonnell on 11-11-1491Otceibtshr (Bld) [Volume fraction]Hematocrit [Volume Fraction] of Blood by Automated hynpaGka73.0-46.4 [facility] HospitalHemoglobin [Mass/volume] in BloodOrdered By: Christiano Mcdonnell on 60-48-7303Bkmflhulku (Bld) [Mass/Vol]Hemoglobin [Mass/volume] in FmpnmQwk23.8-15.4FOhioHealth Southeastern Medical CenterLeukocytes [#/volume] corrected for nucleated erythrocytes in Blood by Automated counOrdered By: Christiano Mcdonnell on 44-12-3995ACR corrected for nucl RBC Auto (Bld) [#/Vol] Leukocytes [#/volume] corrected for nucleated erythrocytes in Blood by Automated coun3.8-11.6FOhioHealth Southeastern Medical CenterLymphocytes Auto (Bld) [#/Vol] Ordered By: Christiano Mcdonnell on 07-58-6422Eygflwbrbgi (Bld) [#/Vol]Lymphocytes [#/volume] in Blood by Automated count1.00-4.8[facility] Lymphocytes/100 WBC Auto (Bld)Ordered By: Christiano Mcdonnell on 10-29-2024 Lymphocytes/100 WBC (Bld)Lymphocytes/100 leukocytes in Blood by Automated count. [facility] HospitalMCH Auto (RBC) [Entitic mass]Ordered By: Christiano Mcdonnell on 91-86-8421AHE (RBC) [Entitic mass]MCH [Entitic mass] by Automated count24.7-34.3FOhioHealth Southeastern Medical CenterMCHC Auto (RBC) [Mass/Vol]Ordered By: Christiano Mcdonnell on 77-88-8525XHQE (RBC) [Mass/Vol]MCHC [Mass/volume] by Automated count32.0-35.0[facility] HospitalMCV Auto (RBC) [Entitic vol]Ordered By: Christiano Mcdonnell on 46-99-0700AAF (RBC) [Entitic vol]MCV [Entitic volume] by Automated zrtbo52-487JhtqfdcagMartin Memorial HospitalMonocytes Auto (Bld) [#/Vol]Ordered By: Christiano Mcdonnell on 04-16-4138Buibaqpme (Bld) [#/Vol]Automated blood monocyte count0.0-0.8[facility] HospitalMonocytes/100 WBC Auto (Bld)Ordered By: Christiano Mcdonnell on 55-52-1526Npydohzvk/100 WBC (Bld)Automated monocyte %.[facility] HospitalNeutrophils Auto (Bld) [#/Vol]Ordered By: Christiano Mcdonnell on 75-42-9873Wcxceetempi (Bld) [#/Vol]Neutrophils [#/volume] in Blood by Automated count1.8-7.7FOhioHealth Southeastern Medical CenterNeutrophils/100 WBC Auto (Bld) Ordered By: Christiano Mcdonnell on 99-90-4759Lcfbdbjjrmp/100 WBC (Bld)Automated neutrophil %.[facility] HospitalNo Panel InformationOrdered By: Christiano Mcdonnell on 75-56-6421Mukhbatfj GFR (CKD-EPI)41.438 mL/MinMartin Memorial HospitalPharmacy Creatinine Clearance (ChemN/AFOhioHealth Southeastern Medical CenterNucleated erythrocytes [Presence] in Blood by Automated count Ordered By: Christiano Mcdonnell on 50-59-6198Famtwcivo RBC Auto Ql (Bld)Nucleated erythrocytes [Presence] in Blood by Automated count0-0.5FOhioHealth Southeastern Medical CenterPlatelet mean volume Auto (Bld) [Entitic vol]Ordered By: Christiano Mcdonnell on 88-72-0237Jyezkqyo mean volume (Bld) [Entitic vol]Platelet mean volume [Entitic volume] in Blood by Automated count6.3-10.7FOhioHealth Southeastern Medical CenterPlatelets Auto (Bld) [#/Vol]Ordered By: Christiano Mcdonnell on 10-29-2024 Platelets (Bld) [#/Vol]Platelets [#/volume] in Blood by Automated -181 [facility] HospitalPotassium [Moles/volume] in Serum or Plasma Ordered By: Christiano Mcdonnell on 43-11-9715Abdhnjmxc [Moles/Vol]Potassium [Moles/volume] in Serum or PlasmaLow3.5-5.1FOhioHealth Southeastern Medical Center Protein [Mass/volume] in Serum or PlasmaOrdered By: Christiano Mcdonnell on 10-29-2024 Protein [Mass/Vol]Protein [Mass/volume] in Serum or Plasma6.4-8.9[facility] HospitalRBC Auto (Bld) [#/Vol]Ordered By: Christiano Mcdonnell on 47-32-9653MYB (Bld) [#/Vol]Erythrocytes [#/volume] in Blood by Automated count Low3.60-5.00[facility]rium Medical Centererum nuclear antibody titerOrdered By: Christiano Mcdonnell on 93-33-7369Ghtiugt Ab (S) [Titer]Serum nuclear antibody titer.[facility] HospitalComment on above:Negative <1:80 Borderline 1:80 Positive >1:80ICAP nomenclature: AC-0For more information about Hep-2 cell patterns useANApatterns.org, the official website for theInternational Consensus on Antinuclear Antibody (TYLER)Patterns (ICAP).Performed at: [place] [id number] Director: Esteban Martinez PhD, Phone: [phone] or plasma albumin/globulin mass ratioOrdered By: Christiano Mcdonnell on 10-29-2024 Albumin/Globulin [Mass ratio]Serum or plasma albumin/globulin mass ratio [facility] Medical Centererum or plasma anion gap determinationOrdered By: Christiano Mcdonnell on 13-12-4121Uelbr gap [Moles/Vol]Serum or plasma anion gap determination6.0-15.0[facility] Medical Centerodium [Moles/volume] in Serum or PlasmaOrdered By: Christiano Mcdonnell on 85-60-0922Gqxaow [Moles/Vol]Sodium [Moles/volume] in Serum or Nitfww138-285HclxxlstlMartin Memorial HospitalUrate [Mass/volume] in Serum or PlasmaOrdered By: Christiano Mcdonnell on 81-51-1865Drjwo [Mass/Vol]Urate [Mass/volume] in Serum or Plasma2.3-6.6FOhioHealth Southeastern Medical CenterUrea nitrogen [Mass/volume] in Serum or PlasmaOrdered By: Christiano Mcdonnell on 39-93-6128Orqr nitrogen [Mass/Vol]Urea nitrogen [Mass/volume] in Serum or Plasma7-25[facility] Memorial HospitalUric Acidon 77-77-8644Blkcu [Mass/Vol]4.7 mg/dLNormal2.3-6.6The [facility] Physician GroupComment on above: Performed By: #### CBC, CRP, CMP, URIC, ESR #### [address] #### [place] #### [facility] ,WBC Auto (Bld) [#/Vol]Ordered By: Christiano Mcdonnell on 92-56-2674WYC (Bld) [#/Vol] Leukocytes [#/volume] in Blood by Automated count3.8-11.6FOhioHealth Southeastern Medical CenterCNPNon 17-31-4030GXTCQylokmjpz (HEMASA) HARMAN MCLEOD ([id number]) 1940 F Date Time Provider Department 1/29/25 VAIBHAV ASHTON During your visit today, we recorded the following information about you: Vaibhav Ashton MD 10/09/2024 8:39 AM Signed Please tell her to start OTC B12 supplements 1000mcg one tab daily for the low B12 levels. Thank you. Vernell Dey RN 10/09/2024 9:02 AM Signed Pt informed of AV message, once verified, using 2 patient identifiers. She will obtain and start B12, as recommended. Patient denies any questions, needs or concerns at this time. Appointment verified. Vernell Dey RN Allergies As of Date: 10/09/2024 Noted Allergy Reaction CEFDINIR 09/13/2022 14 - Other: See Comments 11 - Vomiting CIPROFLOXACIN 09/29/2017 14 - Other: See Comments Comments: tendon issues OXYCODONE-ACETAMINOPHEN 03/31/2013 5 - Intolerance 8 - GI Upset TRAMADOL 11/09/2022 1 - Mental Status Change Date Reviewed: 10/08/2024 Reviewed by: Shaneka Foster MA - Fully Assessed Prescriptions as of 10/09/2024 - anastrozole (ARIMIDEX) 1 mg tablet Take 1 tablet by mouth once daily. - cholecalciferol (VITAMIN D-3) 5,000 unit tab Take 5,000 Units by mouth once daily. - febuxostat (ULORIC) 40 mg tab Take 1 tablet by mouth every afternoon. - predniSONE (DELTASONE) 5 mg tablet TAKE 6 TABLETS ON DAYS 1-3 DIRECTED AND DECREASE BY 1 TAB EVERY 3 DAYS - meloxicam (MOBIC) 15 mg tablet Take 15 mg by mouth once daily. - potassium chloride 20 mEq TbER TAKE 1 TABLET BY MOUTH THREE TIMES A DAY DO NOT CRUSH, CHEW, OR SPLIT. - sucralfate (CARAFATE) 1 gram tablet Take 1 g by mouth four times daily. - liothyronine (CYTOMEL) 5 mcg tablet Take 5 mcg by mouth once daily. - acetaminophen (TYLENOL EXTRA STRENGTH) 500 mg tablet Take 2 tablets by mouth every 6 hours as needed for Pain. - furosemide (LASIX) 20 mg tablet Take 40 mg by mouth twice daily. - citalopram (CELEXA) 20 mg tablet - apixaban (ELIQUIS) 2.5 mg tab(s) Take 5 mg by mouth twice daily. - hydrALAZINE (APRESOLINE) 100 mg tablet Take 100 mg by mouth three times daily. - METOPROLOL SUCCINATE ORAL 200 mg. - BREO ELLIPTA 100-25 mcg/dose inhaler Inhale 1 Inhalation as instructed once daily. - aspirin, enteric coated (ASPIRIN, ENTERIC COATED) 81 mg EC tablet Take 81 mg by mouth once daily. - levothyroxine (SYNTHROID) 112 mcg tablet Take 125 mcg by mouth once daily. - amLODIPine (NORVASC) 5 mg tablet Take by mouth once daily. - metFORMIN (GLUCOPHAGE) 500 mg tablet Take 500 mg by mouth twice daily with meals. - albuterol (PROVENTIL) 2.5 mg /3 mL (0.083 %) nebulizer solution Use 2.5 mg via nebulizer as needed. - simvastatin (ZOCOR) 20 mg tablet Take 40 mg by mouth daily at bedtime. Cut in half - Iaqqv-5-WJF-EPA-Fish Oil 1,000 mg (120 mg-180 mg) cap Take 2 g by mouth twice daily. - isosorbide mononitrate ER (IMDUR) 60 mg 24 hr tablet Take 60 mg by mouth twice daily. 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 Stage 3a chronic kidney disease (HCC) [N18.31] 02/14/2023 Encounter Status:Closed by VERNELL DEY on 10/09/24[facility] W Auto Differential panel (Bld)on 85-50-1183Pfsodhdem (Bld) [#/Vol] 0.04 10*3/uLNINFUc Medical CenterBasophils/100 WBC (Bld)0.4 %[facility] Differential cell count method Nom (Bld)AutoCleveland ClinicEosinophils (Bld) [#/Vol]0.30 10*3/uLNINFUc Medical CenterEosinophils/100 WBC (Bld)2.9 %Uc Medical CenterErythrocyte distribution width (RBC) [Ratio]14.6 %11.5 - 15.0 %[facility]c Medical CenterHematocrit (Bld) [Volume fraction]31.9 %Low36.0 - 46.0 %[facility] Hemoglobin (Bld) [Mass/Vol]10.6 g/dLLow11.5 - 15.5 g/dLUc Medical CenterImmature granulocytes (Bld) [#/Vol]0.07 10*3/uLNINFUc Medical CenterImmature granulocytes/100 WBC (Bld)0.7 %[facility] Medical CenterInterpretation and review of laboratory resultsAbnormalCleveland ClinicLymphocytes (Bld) [#/Vol]2.55 10*3/uL [facility]c Medical CenterLymphocytes/100 WBC (Bld)24.6 %[facility] HospitalH (RBC) [Entitic mass]31.0 pg26.0 - 34.0 pgClevelSleepy Eye Medical CenterHC (RBC) [Mass/Vol]33.2 g/dL30.5 - 36.0 g/dLMartin Memorial HospitalV (RBC) [Entitic vol]93.3 fL80.0 - 100.0 fLClevelOhioHealth Riverside Methodist HospitalMonocytes (Bld) [#/Vol]0.86 10*3/uLNINFUc Medical Center Monocytes/100 WBC (Bld)8.3 %Uc Medical CenterNeutrophils (Bld) [#/Vol]6.53 10*3/uLUc Medical CenterNeutrophils/100 WBC (Bld)63.1 %[facility]c Medical CenterNucleated RBC (Bld) [#/Vol]NINFCleveland Woodwinds Health CampusNucleated RBC/100 WBC (Bld) [Ratio]0.0 % /100 WBCUc Medical CenterPlatelet mean volume (Bld) [Entitic vol]8.9 fLLow9.0 - 12.[address] Anne HospitalPlatelets (Bld) [#/Vol]290 10*3/uLDelaware County Hospitalveland ClinicRBC (Bld) [#/Vol]3.42 10*6/uLLow3.90 - 5.20 m/uLUc Medical CenterWBC (Bld) [#/Vol] 10.35 10*3/uLProtestant Deaconess Hospital ClinicBasophils (Bld) [#/Vol]0.04 10*3/uL Normal<0.11CAshtabula County Medical Center on above:Order Comment: Specimen Type: BLOOD SPECIMEN Ordering Facility: [facility] Address: [address] [place], [place] [address]Performed By: #### 65456-3 #### [facility] CLIA [id number] [address] [place] [address]45[address]Bttmbyfta/100 WBC (Bld)0.4 %NormalSelect Medical Cleveland [facility] [place] Comment on above:Order Comment: Specimen Type: BLOOD SPECIMEN Ordering Facility: [facility] Address: [address] [place], [place] [address]Performed By: #### 80874-2 #### [facility] CLIA [id number] [address] [place] [address]Dgmeafpjoten cell count method Nom (Bld)AutoNormalCAshtabula County Medical Center on above:Order Comment: Specimen Type: BLOOD SPECIMEN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 fibrillation ([facility]) CAD (coronary artery disease) Cancer ([facility]) CHF (congestive heart failure) ([facility]) Chronic kidney disease COPD (chronic obstructive pulmonary disease) ([facility]) Diabetes mellitus ([facility]) GI bleed Heart murmur Hyperlipidemia Hypertension PVD (peripheral vascular disease) ([facility]) PSH: Past Surgical History: Procedure Laterality Date CARDIAC CATHETERIZATION 12/15/2011, 08/23/2010, 12/30/2004, CORONARY STENT PLACEMENT HYSTERECTOMY 03/11/2005 VASCULAR SURGERY SH: Social Determinants of Health Tobacco Use: Medium Risk (06/20/2024) [facility] Patient History Smoking Tobacco Use: Former [...] Depression: Not at risk (02/14/2023) Received from [facility] PHQ-2 PHQ-2 score: 0 Housing [...] mouth two times daily. fish oil concentrate (Beaman-3) 120-180 mg capsule Take 1,000 mg by [...] mcg by mouth in (more content not included)...[facility] HospitalZ[facility]ra [facility]2024 NURSNOTERN educated pt on d/c instructions. This included: site care, limited physical activity, resume normal diet, future appointments, medications, and moderate sedation instructions. RN educated pt on when to notify physician and when to go to the hospital. RN encouraged pt to voice any questions or concerns, and answered any questions or concerns if pt verbalized. Pt was wheeled off of unit with all of belongings.[facility]36on 57-85-488922Bszdgwz's significant other (Sreekanth) called the office to confirm Harman has been taking 100mg of metoprolol once a day. She has 200mg tablets. I advised him - per Dr. Rodriguez- to make sure she's taking 100mg bid. She will take half tablet bid. Sreekanth verbalized understanding.[facility] Visiton 15-51-6986Ekpocb-up [id number] Javier 1940 Date Provider Department Center 07/17/2024 48798-NAPPPKRENEE MCKINNEY Family History Problem Relation Age of Onset Stroke Mother Coronary artery disease Father Heart attack Father Family Status - Relation Status Age at Mother Father Level of Service:23515 [place] OFFICE/OUTPATIENT ESTABLISHED MOD MDM 30 MIN Reason for Visit and Comments: S/P PACEMAKER [Other] - HERE FOR A WOUND CHECK TODAY Atrial Fibrillation [80] - CHADSVASC score of 7 Coronary Artery Disease [187] Hypertension [057532] Edema [[id number]] - LEGS AND FEET ARE SWOLLEN TODAY, PT WANTS TO KNOW IF SHOULD GO BACK ON LASIX DAILYNormalUniversity of Texas Health [facility] Hospital ArlingtonOrders Onlyon 56-04-2502Mpaaje [id number] Harman Mcleod 1940 Date Provider Department Center 07/17/2024 Ana Maria5JORGE HERNANDEZ CORI Orozco Family History Problem Relation Age of Onset Stroke Mother Coronary artery disease Father Heart attack Father Family Status - Relation Status Age at Mother FatherNormalUniCleveland Clinic Mercy HospitalHPon 72-33-8362FNMQ Electrophysiology Consult Note [place] Cardiology - [facility] Reason for visit: Afib HPI: Harman [...] in A-fib. She was just discharged from [facility] for GI bleed. Eliquis and aspirin [...] (CMS/HCC) CAD (coronary artery disease) Cancer ([facility]/HCC) CHF (congestive heart failure) ([facility]/HCC) Chronic kidney disease COPD (chronic obstructive pulmonary disease) ([facility]/HCC) Diabetes mellitus ([facility]/HCC) GI bleed Heart murmur Hyperlipidemia Hypertension PVD (peripheral vascular disease) ([facility]) PSH: Past Surgical History: Procedure [...] on file Intimate Partner Violence: Unknown (11/02/2023) [place] Safety & Environment Fear of Current or [...] mouth two times daily. fish oil concentrate (Beaman-3) 120-180 mg capsule Take 1,000 mg by [...] 90 tablet 3 spironolac (more content not included)...White HospitalNURSNOTEon 17-46-7415SCRJHLYMBL educated pt on d/c instructions. This included: site care, limited physical activity, resume normal diet, future appointments, medications, and moderate sedation instructions. RN educated pt on when to notify physician and when to go to the hospital. RN encouraged pt to voice any questions or concerns, and answered any questions or concerns if pt verbalized. Pt was wheeled off of unit with all of belongings.[facility] HospitalOffice Visiton 91-60-4013Wweptn-up [id number] Harman Mcleod 1940 Provider Department Center 07/02/2024 BRIAN FLANNERY CORI Orozco Family History Problem Relation Age of Onset Stroke Mother Coronary artery disease Father Heart attack Father Family Status - Relation Status Age at Mother Father Level of Service:[address]41 [place] OFFICE/OUTPATIENT NEW MODERATE MDM 45 MINUTESNormal [facility] HospitalOrders Onlyon 22-81-7779Nlkoge [id number] Harman Mcleod 1940 Provider Department Center 07/02/2024 WENDY VILLAGOMEZ CORI Orozco Family History Problem Relation Age of Onset Stroke Mother Coronary artery disease Father Heart attack Father Family Status - Relation Status Age at Mother FatherNormalUniversAvita Health System Galion HospitalConsultation Noteon 06-21-2023 Consultation [id number]#1.00TIFFNormalFisher Saint Luke InstituteVaginitis DNA Probeon 67-24-3607AofhwuaWnteklzyTcpdjeCAP Wilson Street HospitalComment on above:Result Comment: for Manjula sp. Method of testing is a DNA probe intended for detection and identification of Manjula species, Gardnerella vaginalis, and Trichomonas vaginalis nucleic acid in vaginal fluid specimens from patients with symptoms of vaginitis/vaginosis. Performed By: #### VAGP #### [facility] [address] [place] [address] [employer] Bpm Developer: Estephanie SmithllaNegativeNKnox Community HospitalComment on above:Result Comment: for Gardnerella vaginalis Performed By: #### VAGP #### [address] [address] Oracle Bpm Developer: Fidel Hylton MDTrichomonasNegativeNormalRegency Hospital Cleveland EastComment on above:Result Comment: for Trichomonas Vaginalis Performed By: #### VAGP #### [facility] [address] [place] [address] Oracle Bpm Developer: Shaheen Smith.VAGINAL SWABMain Campus Medical CenterComment on above:Performed By: #### VAGP #### [address] [address] Oracle Bpm Developer: Fdiel Hylton MDOPERATIVE REPORTon 53-02-6574DBCWWRVMX REPORT [address] [address] OPERATIVE REPORT PATIENT NAME: HARMAN MCLEOD : 1940 MED REC NO: [id number] ROOM: ACCOUNT NO: [id number] ADMIT DATE: 03/06/2023 PROVIDER: Emma Garza MD DATE OF PROCEDURE: 03/06/2023 PREOPERATIVE DIAGNOSIS: Recurrent vaginal dysplasia. POSTOPERATIVE DIAGNOSIS: Recurrent vaginal dysplasia. OPERATION PERFORMED: Examination under anesthesia, carbon dioxide laser vaporization of vaginal dysplasia. COMPLICATIONS: None. BLOOD LOSS: Minimal. SURGEON: Emma Garza MD OUTREACH ANALYST: Mauri (resident). DISPOSITION: The patient to recovery room stable. SPECIMENS: No specimen sent to Pathology. OPERATIVE FINDINGS: The patient had a small 1-2 cm area of yukxsddc-bl-dxqpbh dysplasia along the anterior vagina from 12 [...] entire procedure. EMMA GARZA MD [id number] Doc#: [id number] CC:NormalWilson Street HospitalConsultation Noteon 02-19-2023 Consultation [id number]#1.00CD:127NoDoctors HospitalConsultation Noteon 74-32-0514Cbcccegmuekm Note [id number]#1.00CD:127Mag[facility] Memorial HospitalComment on above:Other Comment: MISSING PAGES CRRCULTURE URINEon 22-27-3069APRAYVR URINECulture Observations: VERY LIGHT GROWTH OF MIXED GENITAL SAGE. NO POTENTIAL PATHOGENS SEEN.NormalWvumedicine Harrison Community HospitalComment on above:Performed By: #### URCX ####[facility] [address] [place], [place] [address]GqDr. Omid Mir RANDOM W/MICROSCOPICon 70-71-7095QOLHJIQPDSGMWUzjrahabNBCC SEENThe [facility] Comment on above:Performed By: #### HGB #### [facility] [address] [place], [place] [address] Dr. Omid BowdenBilirubin Ql (U)NegativeNormalNEGATIVEThe [facility] Comment on above:Performed By: #### HGB #### [facility] [address] [address] [address] Omid BowdenCASTNONE SEENNormalNONE SEENWvumedicine Harrison Community HospitalComment on above:Performed By: #### HGB #### [facility] [address] [address] [address] Omid Sheaarity (U)CLEARNormalCLEARWvumedicine Harrison Community HospitalComment on above: Performed By: #### HGB #### [facility] [address] [address] [address] Omid Serranolor (U)LT. YELLOWNormalYELLOWWvumedicine Harrison Community HospitalComment on above:Performed By: #### HGB #### [facility] [address] [place] [address] Dr. Omid BowdenCrystals LM Nom (Urine sed)NONE SEENNormalNONE SEENWvumedicine Harrison Community HospitalComment on above:Performed By: #### HGB #### [facility] [address] [place] [address] Dr. Anne ChangEseanthelial cells LM Ql (Urine sed)RARENormalNONE SEEN /RAREWvumedicine Harrison Community HospitalComment on above:Performed By: #### HGB #### [facility] [address] [place] [address] Dr. Omid BowdenGlucose Ql (U)NegativeNormalNEGATIVEWvumedicine Harrison Community HospitalComment on above:Performed By: #### HGB #### [facility] [address] [place] [address] Dr. Omid BowdenHemoglobin Ql (U)NegativeNormalNEGATIVEWexner Medical Center on above:Performed By: #### HGB #### [facility] [address] [place] [address] Dr. Omid BowdenKetones Ql (U)NegativeNormalNEGATIVEWvumedicine Harrison Community HospitalComment on above:Performed By: #### HGB #### [facility] [address] [place] [address] Dr. Omid BowdenLEUKOCYTESSMALLAbnormalNEGATIVEWvumedicine Harrison Community HospitalComment on above:Performed By: #### HGB #### [facility] [address] [place] [address] Dr. Omid BowdenMUCOUSNONE SEENNormalNONE SEENWvumedicine Harrison Community HospitalComment on above:Performed By: #### HGB #### [facility] [address] [place] [address] Dr. Omid Castrotrite Ql (U)NegativeNormalNEGATIVEThe [facility]imaComment on above:Performed By: #### HGB #### [facility] [address] [place] [address] Dr. Omid BowdenpH (U)6.0 [pH]Normal5-9The [facility]imaComment on above: Performed By: #### HGB #### [facility] [address] [place] [address] Dr. Omid BowdenHlgvyDUL6-0Nuooll8-8Tfk [facility]imaComment on above:Performed By: #### HGB #### [facility] [address] [place] [address] Dr. Omid BowdenSPEC GRAVITY<=1.192Gvohpczh7.005-<=1.025[facility] Comment on above:Performed By: #### HGB #### [facility] [address] [place] [address] Dr. Omid Mir PROTEINNegativeNormalNEGATIVE/ TRACEThe [facility] Comment on above:Performed By: #### HGB #### [facility] [address] [place] [address] Dr. Omid Daybilinogen Qn (U)0.2 {Jose'U}/dLNormal0.2 - 1.0The [facility]imaComment on above:Performed By: #### HGB #### [facility] [address] [place] [address] Dr. Omid BowdenWBC0-2AbnormalNONE SEENThe [facility]imaComment on above: Performed By: #### HGB #### [facility] [address] [place] [address] Dr. Omid BowdenCreatinine [Mass/volume] in Serum or PlasmaOrdered By: Christiano Gonzales on 54-34-9514Xkjrrhkizx [Mass/Vol]1.37 mg/dL0.60-1.20[facility] HospitalLaboratory - Chemistry and Chemistry - challengeOrdered By: Christiano Gonzales on 67-15-8781JJC/1.73 sq M.predicted MDRD (S/P/Bld) [Vol rate/Area]39.034 mL/min/{1.73_m2}[facility] HospitalNo Panel InformationOrdered By: Christiano Gonzales on 42-22-1720Rjnneqpa Creatinine Clearance (Chem31.71[facility] HospitalUrea nitrogen [Mass/volume] in Serum or PlasmaOrdered By: Christiano Gonzales on 26-77-5897Muus nitrogen [Mass/Vol]35 mg/dL7-25[facility] Medical Centerurgical Pathologyon 26-86-6212Bezksugm Pathology(NOTE) -- Diagnosis -- VAGINA, 12:00, BIOPSY: -SQUAMOUS MUCOSA/EPITHELIUM WITH HIGH-GRADE SQUAMOUS INTRAEPITHELIAL LESION (VaIN 3). Judson Carlton M.D. Electronically Signed Out magalis/11/28/2022 Clinical Information Pre-op Diagnosis: VAGINAL INTRAEPITHELIAL NEOPLASIA III Operative Findings: 12:00 VAGINAL tm Source of Specimen A: 12 O'CLOCK VAGINA - VAGINAL MUCOSA Gross Description HARMAN MCLEOD, 12:00 VAGINAL BX White fragments, 0.4 x 0.3 x 0.1 cm in aggregate. Entirely 1cs. tm Microscopic Description Microscopic examination performed. SURGICAL PATHOLOGY CONSULTATION Patient Name: HARMAN MCLEOD [facility] Rec: [id number] Path Number: [id number] [facility] ANATOMIC PATHOLOGY [address] [place] [address]. [place], [place] [address] NoOhioHealth Pickerington Methodist HospitalComment on above: Performed By: #### PPPVS #### [facility] [address] [place] [address] [employer] Bpm Developer: Fidel Hylton MDAmbulatory Visit Summaryon 13-58-1953Qwhlphakmz Visit Summary HARMAN MCLEOD :1940 Visit Date:11/22/2022 [...] breast (10/19/2022), Appendectomy, Colposcopy, Cryocautery of cervix, Insertionof arterial stent, Insertion of stent in femoral [...] Four times a day (before meals and atbedtime) Allergies cefdinir (Vomiting) ciprofloxacin (Urticaria) oxyCODONE (Itching) Problems Ongoing - Any problem that you are currently receiving treatment for. 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 Denies pain, no use ofpain medication. Reports scant bloody drainage. 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 BMI 36.0-36.9,adult Brain stem [...] breast (10/19/2022), Appendectomy, Colposcopy, Cryocautery of cervix, Insertionof arterial stent, Insertion of stent in femoral [...] Cigarettes, 0.5 per d (more content not included)...[facility] HospitalComment on above:Result Comment: Electronically Signed By: CHELSI CARDONA, Iliana Castillo.veto\Date and Time Signed: 11/22/22 15:17 EDTCovid-19 PCR ([facility]) on 27-72-0465CJTK-CoV-2 (COVID-19) RNA MARII+probe Ql (Unsp spec)Not detected NormalNOT DETECTEDThe [facility]imaComment on above:Result Comment: When diagnostic testing is negative, the possibility of a false negative should be c onsidered in the context of a patient's recent [...] for this test is supported by the Automatic Log Cut Off [place] of Health and Human Service's declaration that circumstances exist to justify the emergency use of in vitro diagnostics for the detection and/or diagnosis of the virus that causes COVID-19. This EUA will remain in effect for the duration of the COVID-19 declaration justifying emergency of IVDs, unless it is terminated or revoked by the FDA (after which the test may no longer be used).Performed By: #### HGB #### [facility] [address] [place] [address] Dr. Omid Rodarte A AND B AGon 41-86-6294VKTTFHTGJLYFEKettering Health HamiltonComment on above:Result Comment: Negative for Flu A protein angiten. Infection due to Flu A cannot be ruled out. FluA angiten in the sample may be below the detection limit of the test.Performed By: #### INFLUAB ####[facility] [address] [place], [place] [address]Dr. Omid WhyteUBNEGEE Kindred HealthcareComascension borg[facility] allegan [facility] on above:Result Comment: Negative for Flu B protein antigen. Infection due to Flu B cannot be ruled out. FluB antigen in the sample may be below the detection limit of the test.Performed By: #### INFLUAB ####[facility] [address] [place], [place] [address]Dr. Omid MartellZA A AGNegativeNormalNEGATIVE SEE COMMENTThe [facility] Hospital [facility]imaComment on above:Performed By: #### INFLUAB ####[facility] [address] [place], [place] [address]Dr. Omid MartellZA B AGNegativeNormalNEGATIVE SEE COMMENTThe [facility] Comment on above:Performed By: #### INFLUAB ####[facility] [address] [place], [place] [address]Dr. Omid BowdenAmbulatory Visit Summaryon 10-31-0511Xuchsuorwh Visit Summary HARMAN MCLEOD :1940 Visit Date:11/08/2022 [...] breast (10/19/2022), Appendectomy, Colposcopy, Cryocautery of cervix, Insertionof arterial stent, Insertion of stent in femoral [...] Four times a day (before meals and atbedtime) Allergies cefdinir (Vomiting) ciprofloxacin (Urticaria) oxyCODONE (Itching) Problems Ongoing - Any problem that you are currently receiving treatment for. 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 BMI 36.0-36.9,adult Brain stem [...] Rectal bleeding Stage 2 chronic kidney disease [facility] Surgery Office/Clinic Noteon 67-37-4441Tqaoraj Surgery Office/Clinic NoteChief Complaint post operative follow up HPI Staff [...] small amount of serosanguinous drainage; no fevers; wearingbra all the time; no pain meds; has [...] and diastolic (congestive) heart failure Atherosclerosis of chippewa-cree artery of extremity BMI 36.0-36.9,adult Brain stem [...] breast (10/19/2022), Appendectomy, Colposcopy, Cryocautery of cervix, Insertionof arterial stent, Insertion of stent in femoral [...] 09/09/2022 Family History Tran (more content not included)...[facility] HospitalComment on above:Result Comment: Electronically Signed By: Iliana GAGNON MD\.br\Date and Time Signed: 11/08/22 14:22 ESTAmbulatory Visit Summaryon 93-60-9805Pkgbiwsrxh Visit Summary HARMAN MCLEOD :1940 Visit Date:11/04/2022 [...] breast (10/19/2022), Appendectomy, Colposcopy, Cryocautery of cervix, Insertionof arterial stent, Insertion of stent in femoral vein, Repair of aneurysm, Ultrasonography guided biopsy of right breast, Urinary bladder reconstruction, Vaginal total hysterectomy. What to do next Scheduled Follow-Up Appointments Monday 2:00 PM EST With: Iliana GAGNON MD [facility] Office/Clinic Noteon 82-26-6264Uuwbdyu Surgery Office/Clinic NoteChief Complaint bleeding from incision HPI Staff 16 [...] keep area clean and dry; place pad overbreast incision so bra does not rub; keep f/u appointment for next week, call sooner if problems/questions. 2. 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 BMI 36.0-36.9,adult Brain stem [...] breast (10/19/2022), Appendectomy, Colposcopy, Cryocautery of cervix, Insertionof arterial stent, Insertion of stent in femoral [...] Years., 09/09/2022 Family Histor (more content not included)...[facility] Comment on above:Result Comment: Electronically Signed By: CHELSI CARDONA, Iliana Alvarez\Date and Time Signed: 11/04/22 14:35 ESTUS HARRIET DOP LEG BILon 93-49-7740ZT HARRIET DOP LEG BILEXAM: US HARRIET DOP LEG DAVID HISTORY: Edema [...] Electronically authenticated by: MIGUELITO TELLEZ Date: 2022-11-02 17:17[facility] CampusPathology Noteon 21-72-4731Bnzpwczah Note [id number]#1.00CD:[address] [place], [place] [address]Ambulatory Visit Summaryon 90-28-2529Fhufrdwaro Visit Summary HARMAN MCLEOD :1940 Visit Date:10/25/2022 [...] breast (10/19/2022), Appendectomy, Colposcopy, Cryocautery of cervix, Insertionof arterial stent, Insertion of stent in femoral vein, Repair of aneurysm, Ultrasonography guided biopsy of right breast, Urinary bladder reconstruction, Vaginal total hysterectomy. What to do next Scheduled Follow-Up Appointments Monday 2:00 PM EST With: Iliana GAGNON MD Where: General Surgery [facility] Office/Clinic Noteon 31-97-1354Gnirbea Surgery Office/Clinic NoteChief Complaint post operative follow up HPI Staff 6 day post operative follow up post right breast needle localized lumpectomy with SN biopsy. Reports moderate discomfort, taking Tylenol for pain. Reports fair amount of bruising. Wearing supportive bra. Denies bleeding or drainage. History of Present Illness 6 days s/p right breast lumpectomy with sentinel lymph node biopsy; doing well, mild soreness; somebruising; no longer taking Tramadol; wearing bra all [...] or drainage, some resolving ecchymoses; no hematoma, mildedema of breast. Assessment/Plan 1. Breast cancer of [...] and diastolic (congestive) heart failure Atherosclerosis of chippewa-cree artery of extremity BMI 36.0-36.9,adult Brain stem [...] breast (10/19/2022), Appendectomy, Colposcopy, Cryocautery of cervix, Insertionof arterial stent, Insertion of stent in femoral [...] Mother. Heart disease: Mo (more content not included)...[facility] HospitalComment on above:Result Comment: Electronically Signed By: CHELSI CARDONA, Iliana Alvarez\Date and Time Signed: 10/25/22 16:13 ESTOperative Reporton 26-75-5373Piomimrhr [id number]#1.00CD:127 [facility] HospitalRAD - Ultrasound Reporton 63-85-3634OVF - Ultrasound [id number]#1.00CD:127[facility] HospitalNM SENTNL NODEon 67-93-3001RF [facility] NODENUCLEAR MEDICINE LYMPHOSCINTIGRAPHY. HISTORY: Infiltrating duct carcinoma of [...] Electronically authenticated by: KRISTIN JAQUEZ Date: 2022-10-19 10:41[facility] CampusPOINT OF CARE GLUCOSEon 83-39-0061Urrvemc [Mass/Vol]153 mg/dL Critically ckah28-603DivWvumedicine Harrison Community HospitalComment on above:Performed By: #### POCGLUC #### [facility] [address] [address] [address] Omid BowdenRAD - MISCon 07-64-5393FTY - MISC [id number]#1.00CD:127[facility] HospitalRAD - [id number]#1.00CD:127[facility] HospitalRAD - Ultrasound Reporton 60-61-8479JVT - Ultrasound Report [id number]#1.00CD:127[facility] HospitalRAD - Ultrasound [id number]#1.00CD:127 [facility] HospitalUS BREAST SPECIMENon [id number] BREAST SPECIMENPatient: MCLEODHARMAN WOLFEMedardo Exam Date: 10/19/2022 : 1940 Gender:F Ordering : DR ILIANA GAGNON . Admission #: [id number] Family : Order #: [id number] CLICK HERE TO VIEW EXAM RADIOLOGY REPORT PROCEDURE: US BREAST SPECIMEN COMPARISON: None. INDICATIONS: Specimen from breast FINDINGS: Breast specimen demonstrates inclusion of the targeted mass as well as the micro clip marker CONCLUSION: Targeted mass and micro clip marker included within the specimen Dictated by: Judson Bauman MD on 10/19/2022 at 11:46 Approved by: Judson Bauman MD on 10/19/2022 at 11:47[facility] CampusUS GUIDE LOCAL BREAST RTon [id number] GUIDE LOCAL BREAST RTPatient: HARSHA HARMAN L. Exam Date: 10/19/2022 : 1940 Gender:F Ordering : DR ILIANA GAGNON . Admission #: [id number] Family : Order #: [id number] CLICK HERE TO VIEW EXAM RADIOLOGY REPORT [...] clip marker LOCATION: Right breast 9 NEEDLE: StyleFeed[employer] spring hook; 20 g by 5 cm needle and wire. MEDICATION: 6 cubic cm Superficial and deep buffered 1% lidocaine. COMPLICATIONS: None. CONCLUSION: Technically successful hookwire localization. Dictated by: Judson Bauman MD on 10/19/2022 at 09:04 Approved by: Judson Bauman MD on 10/19/2022 at 09:05[facility] SENTINEL NODEon 84-96-3126DK SENTINEL NODEEXAM: US SENTINEL NODE HISTORY: Infiltrating duct carcinoma COMPARISON: None. TECHNIQUE: Grayscale and color ultrasound FINDINGS: Grayscale and color ultrasound demonstrates a 1.6 x 0.8 cm lobular heterogeneous hypoechogenic mass at the 9:00 position. Associated microclip marker from prior biopsy IMPRESSION: Localization of a 1.6 cm right breast mass Electronically authenticated by: JUDSON BAUMAN Date: 2022-10-19 08:59[facility] CampusRAD - MISCon [id number] [facility] [id number]#1.00CD:127NoDoctors HospitalCB AUTO DIFFon 17-09-8216NMXH #0.0 103/ulNormal0.0-0.1[facility] Community HospitalComment on above:Performed By: #### HGB #### [facility] [address] [place] [address] Dr. Omid BowdenBasophils/100 WBC (Bld)0.2 %Normal0.2-2.0The [facility] Comment on above:Performed By: #### HGB #### [facility] [address] [place] [address] Dr. Omid Maldonado #0.0 103/ulNormal0.0-0.7The [facility]imaComment on above: Performed By: #### HGB #### [facility] [address] [place] [address] Dr. Omid Batesosinophils/100 WBC (Bld)0.3 %Critically low0.9-7.0The [facility]imaComment on above:Performed By: #### HGB #### [facility] [address] [place] [address] Dr. Omid Batesrythrocyte distribution width (RBC) [Ratio]13.7 %Ooejmd10.0-15.0 The [facility] Hospitalment on above:Performed By: #### HGB #### [facility] [address] [place] [address] Dr. Omid BowdenHematocrit (Bld) [Volume fraction]39.6 %Hauete36.0-48.0The [facility] Hospital LimaComment on above:Performed By: #### HGB #### [facility] [address] [place] [address] Dr. Omid BowdenHemoglobin (Bld) [Mass/Vol]12.3 g/nUQcncjw48.0-16.0The [facility] LimaComment on above:Performed By: #### HGB #### [facility] [address] [place] [address] Dr. Omid Aceves #0.06 10e3/ulCritically high0.00-0.03The [facility] Comment on above:Performed By: #### HGB #### [facility] [address] [place] [address] Dr. Omid Aceves %0.5 %Normal0.0-0.5The [facility] Hospital LimaComment on above: Performed By: #### HGB #### [facility] [address] [place] [address] Dr. Omid BarnesH #2.9 103/ulNormal1.2-3.8The [facility] Hospital LimaComment on above:Performed By: #### HGB #### [facility] [address] [place] [address] Dr. Omid Barneshocytes/100 WBC (Bld)26.2 %Druhzo68.5-60.0The [facility] Hospitalment on above:Performed By: #### HGB #### [facility] [address] [place] [address] Dr. Omid ConcepcionUAL DIFF REQNONormalThe [facility] LimaComment on above: Performed By: #### HGB #### [facility] [address] [place] [address] Dr. Omid Hodgson (RBC) [Entitic mass]28.3 ivGsinyb92.7-34.0The [facility] Hospital LimaComment on above:Performed By: #### HGB #### [facility] [address] [place] [address] Dr. Omid Hodgson (RBC) [Mass/Vol]31.1 g/iAObdcgv34.9-35.2The [facility] Hospital LimaComment on above:Performed By: #### HGB #### [facility] [address] [place] [address] Dr. Omid Marte (RBC) [Entitic vol]91.2 tUIjvwwk74.0-99.0The [facility] Hospital LimaComment on above:Performed By: #### HGB #### [facility] [address] [place] [address] Dr. Omid Kaur #0.9 103/ulCritically high0.3-0.8The [facility] Comment on above:Performed By: #### HGB #### [facility] [address] [place] [address] Dr. Omid Fritzocytes/100 WBC (Bld)8.3 %Normal1.7-12.0[facility] Comment on above:Performed By: #### HGB #### [facility] [address] [place] [address] Dr. Omid Moreno #7.0 103/ulCritically high1.4-6.5The [facility] Comment on above:Performed By: #### HGB #### [facility] [address] [place] [address] Dr. Omid Kramerophils/100 WBC (Bld)64.5 %Jizaig06.0-75.0The [facility] Hospital LimaComment on above:Performed By: #### HGB #### [facility] [address] [place] [address] Dr. Omid Mcdonaldlet mean volume (Bld) [Entitic vol]9.2 fLCritically low 9.5-13.5The [facility] LimaComment on above:Performed By: #### HGB #### [facility] [address] [place] [address] Dr. Omid BowdenPLT346 103/lwEqrjxf645-728Jdo [facility] LimaComment on above: Performed By: #### HGB #### [facility] [address] [place] [address] Dr. Omid BowdenRBC4.34 106/ulNormal4.20-5.40The [facility] LimaComment on above:Performed By: #### HGB #### [facility] [address] [place] [address] Dr. Omid BowdenWBC10.9 103/ulNormal4.0-11.0The [facility] LimaComment on above:Performed By: #### HGB #### [facility] [address] [place] [address] Dr. Omid BowdenPROF CHEM 8 (BAS METB)on 20-78-4310Itcdl gap [Moles/Vol]11.0 mmol/LNormalThe [facility] LimaComment on above:Performed By: #### LIPID, BMP #### [facility] [address] [place] [address] Dr. Omid BowdenCalcium [Mass/Vol]9.6 mg/dLNormal8.5-10.1The [facility] Comment on above:Performed By: #### LIPID, BMP #### [facility] [address] [place] [address] Dr. Omid BowdenChloride [Moles/Vol]99 mmol/KAntxsc71-540Gtv [facility] Comment on above:Performed By: #### LIPID, BMP #### [facility] [address] [place] [address] Dr. Omid BowdenCO2 [Moles/Vol]32.0 mmol/YLeeoyt74.0-32.0The [facility] Comment on above:Performed By: #### LIPID, BMP #### [facility] [address] [address] [address] Omid BowdenCreatinine [Mass/Vol]1.03 mg/dLCritically high0.55-1.02The [facility] LimaComment on above:Performed By: #### LIPID, BMP #### [facility] [address] [address] [address] Omid BatesGFR-AF GHANAIAN>60Normal>=60The [facility] LimaComment on above:Performed By: #### LIPID, BMP #### [facility] [address] [address] [address] Omid BatesGFR-NON AF KUHOQWCL77 mL/min/1.50n3Nxcrazhgsm low>=60The [facility] LimaComment on above:Performed By: #### LIPID, BMP #### [facility] [address] [address] [address] Omid BowdenGlucose [Mass/Vol]94 mg/oWZwayui18-031Nju [facility] Comment on above:Performed By: #### LIPID, BMP #### [facility] [address] [address] [address] Omid BowdenPotassium [Moles/Vol]4.0 mmol/LNormal3.5-5.1[facility] Comment on above:Performed By: #### LIPID, BMP #### [facility] [address] [address] [address] Omid BowdenSodium [Moles/Vol]138 mmol/EXympce421-231Kbp [facility] Comment on above:Performed By: #### LIPID, BMP #### [facility] [address] [address] [address] Omid BowdenUrea nitrogen [Mass/Vol]28.0 mg/dLCritically high7.0-18.0The [facility] LimaComment on above:Performed By: #### LIPID, BMP #### [facility] [address] [address] [address] Omid BowdenUrea nitrogen/Creatinine [Mass ratio]27.2 mg/mgNormalThe [facility] LimaComment on above:Performed By: #### LIPID, BMP #### [facility] [address] [place] [address] Dr. Omid BowdenPROTIMEon 22-22-7547VAY Coag (PPP) [Relative time]0.99 {INR} NormalWvumedicine Harrison Community HospitalComment on above:Performed By: #### HGB #### [facility] [address] [place] [address] Dr. Omid Damon GUIDELINESSEE Kindred HealthcareComment on above:Result Comment: DESIRED INR: 2.0 - 3.0 CONDITIONS NOT LISTED BELOW 2.5 - 3.5 FOR PROSTHETIC HEART VALVE REPLACEMENT 2.5 - 3.5 RECURRENT THROMBOSIS Performed By: #### HGB #### [facility] [address] [place] [address] Dr. Omid BowdenPT Coag (PPP) [Time]10.5 sNormal9.0-11.6The [facility] Comment on above:Performed By: #### HGB #### [facility] [address] [place] [address] Dr. Omid LeesTon 71-98-0002yJYZ Coag (Bld) [Time]28.6 dFztpjh95.3-36.2[facility] HospitalComment on above:Performed By: #### HGB #### [facility] [address] [place] [address] Dr. Omid BowdenConsultation Noteon 85-67-4468Qwanlpjofabl Note [id number]#1.00CD:127[facility] HospitalINSULINon 55-33-8696Vkvgsui41.8 uIU/mLNormal2.6-24.9[facility] Comment on above:Performed By: #### LIPID, BMP #### [facility] [address] [place] [address] Dr. Omid BowdenGLYCOHEMOGLOBIN A1Con 19-17-3738XSI RECOMMENDATIONSEE BELOWRegency Hospital ToledoComment on above:Result Comment: ADA RECOMMENDED LIMIT 4.0 - 6.0 ADA THERAPEUTIC TARGET < 7.0 ACTION SUGGESTED > 7.0Performed By: #### HGB #### [facility] [address] [address] [address] Omid BowdenGlucose [Mass/Vol]177 mg/dLNormalThe [facility] LimaComment on above:Performed By: #### HGB #### [facility] [address] [address] [address] Omid BowdenHbA1c (Bld) [Mass fraction]7.8 %Critically high4.5-6.2The [facility] LimaComment on above:Performed By: #### HGB #### [facility] [address] [address] [address] Omid BowdenPROF 14(COMP METB)on 22-86-3373Ykpqels [Mass/Vol]3.0 g/dL Critically low3.4-5.0The [facility]imaComment on above:Performed By: #### CMP ####[facility] [address] [address]Dr. Omid BowdenAlbumin/Globulin [Mass ratio]0.7 {ratio}NormalThe [facility] Comment on above:Performed By: #### CMP ####[facility] [address]maa[address] [address]Dr.Omid BowdenALP [Catalytic activity/Vol]73 U/YYisjyt17-951Pxq [facility]imaComment on above:Performed By: #### CMP ####[facility] J[address]agkh[address] [address]DrMedardo BowdenALT [Catalytic activity/Vol]16 U/WEdiehr30-76Mfk [facility] Comment on above:Performed By: #### CMP ####[facility] Lwvlshzved[address] [address]DrRadha BowdenAnion gap [Moles/Vol]11.3 mmol/LNormalThe [facility] LimaComment on above:Performed By: #### CMP ####[facility] [address]zygnqs[address] [address]Dr. Omid ChangAST [Catalytic activity/Vol]14 U/LCritically xil32-16Pfr Lindy HospitalComment on above:Performed By: #### CMP ####[facility] Gjqotxdjpn[address] [place], [place] [address]Dr.Yilan ChangBilirubin [Mass/Vol]0.3 mg/dLNormal0.2-1.0The [facility] LimaComment on above:Performed By: #### CMP ####[facility] Wecqrxksqx[address] [place], [place] [address]Dr.Yilan ChangCalcium [Mass/Vol]9.5 mg/dLNormal8.5-10.1The [facility] LimaComment on above:Performed By: #### CMP ####[facility] Cfinhhgcql8[address] [place], [place] [address]Dr.Yilan ChangChloride [Moles/Vol]102 mmol/OGieoqa45-479Kro [facility] LimaComment on above:Performed By: #### CMP ####[facility] Ieccitbpdw9[address] [place], [place] [address]Dr.Yilan ChangCO2 [Moles/Vol]31.1 mmol/XWgatsl48.0-32.0The [facility] LimaComment on above:Performed By: #### CMP ####[facility] Hxqqrfmnxu7[address] [place], [place] [address]Dr.Yilan ChangCreatinine [Mass/Vol]1.28 mg/dLCritically high0.55-1.02The [facility] LimaComment on above:Performed By: #### CMP ####[facility] Odsdbeqkby90[address] [place], [place] [address]Dr.Yilan ChangEGFR-AF VZPFVQQE36 mL/min/1.73m2 Critically low>=60The [facility] LimaComment on above:Performed By: #### CMP ####[facility] Hufiajztez4[address] [place], [place] [address]Dr. Yilan ChangEGFR-NON AF UAAFYTTD54 mL/min/1.12a5Pacjymyduc low>=60The [facility]imaComment on above:Performed By: #### CMP ####[facility] Zcmpriqltj545[address] [place], [place] [address]Dr.Yilan ChangGlobulin (S) [Mass/Vol]4.4 g/dLNormDiley Ridge Medical CenterComment on above:Performed By: #### CMP ####[facility] Uynfaopteq19[address] [place], [place] [address]Dr.Omid ChangGlucose [Mass/Vol]103 mg/rFPjyccc05-424Tmz [facility] Comment on above:Performed By: #### CMP ####[facility] Fdbuavwmtv464[address] [place], [place] [address]Dr.Omid ChangPotassium [Moles/Vol]4.4 mmol/LNormal3.5-5.1The [facility] LimaComment on above:Performed By: #### CMP ####[facility] Kuicjwotsj[address] [place], [place] [address]Dr. Omid ChangProtein [Mass/Vol]7.4 g/dLNormal6.4-8.2The [facility]imaComment on above:Performed By: #### CMP ####[facility] Cqizkieaxm039[address] [place], [place] [address]Dr.Aixamegan ChangSodium [Moles/Vol]140 mmol/LNormal 136-145The [facility]imaComment on above:Performed By: #### CMP ####[facility] Epdsgevdkf17[address] [place], [place] [address]Dr.Omid ChangUrea nitrogen [Mass/Vol]27.0 mg/dLCritically high7.0-18.0The [facility]imaComment on above:Performed By: #### CMP ####[facility] Ghyrgcksll8[address] [place], [place] [address]Dr.Aixalan ChangUrea nitrogen/Creatinine [Mass ratio] 21.1 mg/mgNoMagruder HospitalComment on above:Performed By: #### CMP ####[facility] Horvevylmo[address] [place], [place] [address]Dr. Omid ChangFormson 53-58-8157Qrkpu [id number]#1.00CD:127[facility] HospitalConsent for Procedure/Surgeryon 98-27-8737Avlppnq for Procedure/Surgery [id number]#1.00CD:127NoDoctors HospitalConsultation Noteon 27-58-0943Xohghlrqbbmo Note [id number]#1.00CD:127NoDoctors HospitalConsultation Noteon 46-08-4375Qfcrhpjgvceo Note [id number]#1.00CD:127NoDoctors HospitalCovid-19 PCR (CVDTBH)on 28-28-3777CRPP-CoV-2 (COVID-19) RNA MARII+probe Ql (Unsp spec)Not detectedNormalNOT DETECTEDThe [facility]imaComment on above: Result Comment: When diagnostic testing [...] for this test is supported by the [place] of Health and Human Service's declaration that circumstances exist to justify the emergency use of in vitro diagnostics for the detection and/or diagnosis of the virus that causes COVID-19. This EUA will remain in effect for the duration of the COVID-19 declaration justifying emergency of IVDs, unless it is terminated or revoked by the FDA (after which the test may no longer be used).Performed By: #### CVDTBH ####[facility] [address]rslv[address] [place], [place] [address]Ma. Omid ChangINFLUENZA A AND B AGon 49-39-4554ETDCRSDLVJXZI BELOWNormal The [facility] LimaComment on above:Result Comment: Negative for Flu A protein angiten. Infection due to Flu A cannot be ruled out. FluA angiten in the sample may be below the detection limit of the test.Performed By: #### INFLUAB ####[facility] [address]cl[address] [address]Dr. Omid ChangINFLUBNEGHSEE Kindred HealthcareComment on above:Result Comment: Negative for Flu B protein antigen. Infection due to Flu B cannot be ruled out. FluB antigen in the sample may be below the detection limit of the test.Performed By: #### INFLUAB ####[facility] Vxwnokecms[address] [address]Dr. Omid ChangINFLUENZA A AGNegativeNormalNEGATIVE SEE COMMENTThe [facility]imaComasc[facility] on above:Performed By: #### INFLUAB ####[facility] Hqexwzpwhr[address] [place], [place] [address]Dr. Omid ChangINFLUENZA B AGNegativeNormalNEGATIVE SEE COMMENTThe [facility] Comment on above:Performed By: #### INFLUAB ####[facility] Eiyqsblssn[address] [place], [place] [address]Dr. Omid ChangLIPID PROFILEon 09-16-2022 CHOL-HDL RATIO NORMSEE [facility] HealthcareComasc[facility] on above:Result Comment: 3.3 - 4.4 LOW RISK 4.4 - 7.1 AVERAGE RISK 7.1 - 11.0 MODERATE RISK >11.0 HIGH RISKPerformed By: #### LIPID, BMP #### [facility] [address] [place] [address] Dr. Omid BowdenCholesterol [Mass/Vol]210 mg/dLCritically high<=200The [facility] on above:Performed By: #### LIPID, BMP #### [facility] [address] [place] [address] Dr. Omid Greeresterol in HDL [Mass/Vol]49 mg/sSRrlssy23-05Eue [facility] on above:Performed By: #### LIPID, BMP #### [facility] [address] [place] [address] Dr. Omid Greeresterol in LDL [Mass/Vol]84.2 mg/dLKettering Health Main CampusComment on above:Performed By: #### LIPID, BMP #### [facility] [address] [place] [address] Dr. Omid BowdenCholesterol.total/Cholesterol in HDL [Mass ratio]4.3 {ratio} NormalThe [facility] Hospital LimaComment on above:Performed By: #### LIPID, BMP #### [facility] [address] [place] [address] Dr. Omid Black NORMAL> or = 60 mg/dl - LOW CARDIOVASCULAR RISK <40 mg/dl - HIGH CARDIOVASCULAR RISKKettering Health Main CampusComment on above:Performed By: #### LIPID, BMP #### [facility] [address] [place] [address] Dr. Omid BowdenLDL CALC NORMALSEE BELOWKettering Health Main CampusComment on above:Result Comment: <100 mg/dl OPTIMAL 100 - 129 mg/dl NEAR OR ABOVE OPTIMAL 130 - 159 mg/dl BORDERLINE HIGH 160 - 189 mg/dl HIGH >190 mg/dl VERY HIGH Performed By: #### LIPID, BMP #### [facility] [address] [place] [address] Dr. Omid BowdenTriglyceride [Mass/Vol]384 mg/dLCritically high<=150The [facility] LimaComment on above:Performed By: #### LIPID, BMP #### [facility] [address] [place] [address] Dr. Omid SharifLDL CALC76.8 mg/dLNormDiley Ridge Medical CenterComment on above: Performed By: #### LIPID, BMP #### [facility] [address] [place] [address] Dr. Omid BowdenPROF CHEM 8 (BAS METB)on 87-15-3555Zxzgg gap [Moles/Vol]10.8 mmol/LNormalWvumedicine Harrison Community HospitalComment on above:Performed By: #### LIPID, BMP #### [facility] [address] [place] [address] Dr. Omid BowdenCalcium [Mass/Vol]8.8 mg/dLNormal8.5-10.1The [facility] Comment on above:Performed By: #### LIPID, BMP #### [facility] [address] [address] [address] Omid BowdenChloride [Moles/Vol]98 mmol/WEhbjdg87-520Vyd [facility] Comment on above:Performed By: #### LIPID, BMP #### [facility] [address] [address] [address] Omid BowdenCO2 [Moles/Vol]34.5 mmol/LCritically high21.0-32.0The [facility]imaComment on above:Performed By: #### LIPID, BMP #### [facility] [address] [address] [address] Omid BowdenCreatinine [Mass/Vol]1.17 mg/dLCritically high0.55-1.02The [facility]imaComment on above:Performed By: #### LIPID, BMP #### [facility] [address] [address] [address] Anne ChangEGFR-AF IPUVGCXQ83 mL/min/1.42i7Kjkjhrnpwv low>=60The [facility]imaComment on above:Performed By: #### LIPID, BMP #### [facility] [address] [address] [address] Omid BatesGFR-NON AF YPQVTPXZ07 mL/min/1.79j9Oifvsergeq low>=60The [facility]imaComment on above:Performed By: #### LIPID, BMP #### [facility] [address] [address] [address] Omid BowdenGlucose [Mass/Vol]193 mg/dLCritically mqli98-082Ktv [facility]imaComment on above:Performed By: #### LIPID, BMP #### [facility] [address] [address] [address] Omid BowdenPotassium [Moles/Vol]3.3 mmol/LCritically low3.5-5.1The [facility]imaComment on above:Performed By: #### LIPID, BMP #### [facility] [address] [address] [address] Omid BowdenSodium [Moles/Vol]140 mmol/ZQdklct442-398Rdo [facility] Comment on above:Performed By: #### LIPID, BMP #### [facility] [address] [address] [address] Omid Lawson nitrogen [Mass/Vol]31.0 mg/dLCritically high7.0-18.0[facility] HospitalComment on above:Performed By: #### LIPID, BMP #### [facility] [address] [address] [address] Omid Lawson nitrogen/Creatinine [Mass ratio]26.5 mg/mgNormalThWadsworth-Rittman HospitalComment on above:Performed By: #### LIPID, BMP #### [facility] [address] [address] [address] Omid BowdenFacesheeton 58-20-4366Ajxtdjmtr [id number]#1.00CD:[address] [place], [place] [address]Consultation Noteon 61-04-6887Axxhqynumpdi Note [id number]#1.00CD:[address] [place] [address] Note-Physicianon 56-08-6537MR Note-Physician [id number]#1.00CD:[address] [place], [place] [address]Lab Reportson 64-26-8632Dpn Reports [id number]#1.00CD:[address] [place], [place] [address]Lab [id number]#1.00CD:[address] [place], [place] [address]Physician Referralon 13-36-2359Kzektzlys Referral [id number]#1.00CD:[address] [place], [place] [address]C. DIFF PCRon 2C. DIFFICILE PCRNegativeNormalNEGATIVEThe [facility]imaComment on above:Performed By: #### CDIFPOC ####[facility] [address] [address]Dr. Omid ChangCBC AUTO DIFF on 82-21-9560XJAS #0.0 103/ulNormal0.0-0.1The [facility]imaComment on above: Performed By: #### CBC ####[facility] Qxdxybgkrj8[address] [place], [place] [address]Dr.Omid ChangBasophils/100 WBC (Bld)0.3 %Normal 0.2-2.0The [facility] Hospital LimaComment on above:Performed By: #### CBC ####[facility] Eizdglsmga50[address] [place], [place] [address]Dr.Aixalan ChangEO # 0.5 103/ulNormal0.0-0.7The [facility] LimaComment on above:Performed By: #### CBC ####[facility] Txdchesejq[address] [place], [place] [address]Dr. Omid ChangEosinophils/100 WBC (Bld)3.2 %Normal0.9-7.0The [facility] Comment on above:Performed By: #### CBC ####[facility] Crpwznuwid7[address] [place], [place] [address]Dr.Omid ChangErythrocyte distribution width (RBC) [Ratio]14.1 %Reecfh92.0-15.0The [facility] LimaComment on above: Performed By: #### CBC ####[facility] Afofkaogjb28[address] [place], [place] [address]Dr.Omid ChangHematocrit (Bld) [Volume fraction]36.1 % Buszzm87.0-48.0The [facility] LimaComment on above:Performed By: #### CBC ####[facility] J[address]uaftvup[address] [place], [place] [address]Dr. Omid ChangHemoglobin (Bld) [Mass/Vol]11.7 g/dLCritically low12.0-16.0The [facility] LimaComment on above:Performed By: #### CBC ####[facility] Wdiiqygzjt94[address] [place], [place] [address]Dr.Omid BowdenIG #0.08 10e3/ulCritically high0.00-0.03The [facility] LimaComment on above:Performed By: #### CBC ####[facility] [address] [address]Dr.Omid BowdenIG %0.5 %Normal0.0-0.5The [facility] LimaComment on above: Performed By: #### CBC ####[facility] Dirjhiqizj[address] [place], [place] [address]Dr.Omid BowdenLYMPH #1.2 103/ulNormal1.2-3.8The [facility] LimaComment on above:Performed By: #### CBC ####[facility] Pivfnmkbiz64[address] [place], [place] [address]Dr.Omid BowdenLymphocytes/100 WBC (Bld)7.5 %Critically low20.5-60.0The [facility]imaComment on above: Performed By: #### CBC ####[facility] Twjdpniwof[address] [place], [place] [address]Dr.Omid BowdenMANUAL DIFF REQNONormalThe [facility] LimaComment on above:Performed By: #### CBC ####[facility] Tpotqcdkha[address] [place], [place] [address]Dr.Omid BowdenF[facility] (RBC) [Entitic mass]29.2 hsPnrips42.7-34.0The [facility]imaComment on above: Performed By: #### CBC ####[facility] Ukgrawqhkm5546[address] [place], [place] [address]Dr.Omid BowdenM[facility]ERNON [facility] (RBC) [Mass/Vol]32.4 g/dLNormal 29.9-35.2The [facility] LimaComment on above:Performed By: #### CBC ####[facility] Xhzqmblcbc36[address] [place], [place] [address]Dr. Omid BowdenH[facility] [place]BC) [Entitic vol]90.0 iXYbhfbu87.0-99.0The [facility] Comment on above:Performed By: #### CBC ####[facility] [address] [address]Dr.Omid BowdenMONO #1.0 103/ulCritically high0.3-0.8The [facility] Hospital LimaComment on above:Performed By: #### CBC ####[facility] [address] [address]Dr. Aixalan ChangMonocytes/100 WBC (Bld)6.8 %Normal1.7-12.0[facility] Comment on above:Performed By: #### CBC ####[facility] Y[address]hgn[address] [address]Dr.Omid BowdenNEUT #12.5 103/ulCritically high1.4-6.5The [facility] Hospital LimaComment on above:Performed By: #### CBC ####[facility] [address]zpvst[address] [address]Dr. Yilan ChangNeutrophils/100 WBC (Bld)81.7 %Critically high43.0-75.0The [facility] Hospital LimaComment on above:Performed By: #### CBC ####[facility] [address]vpj[address] [address]Dr.Omid ChangPlatelet mean volume (Bld) [Entitic vol]8.9 fLCritically low9.5-13.5The [facility] Comment on above:Performed By: #### CBC ####[facility] [address] [address]Dr.Aixalan QigmtEQE516 103/koQnvqac265-542Uul [facility] LimaComment on above:Performed By: #### CBC ####[facility] Rex[address]cvxlt[address] [address]Dr.Aixalan ChangRBC4.01 106/ul Critically low4.20-5.40The [facility] Hospital LimaComment on above:Performed By: #### CBC ####[facility] [address]fdwx[address] [address]Dr. Aixalan JgsjjCAV71.3 103/ulCritically high4.0-11.0The [facility] Hospital LimaComment on above:Performed By: #### CBC ####[facility] Vvxzneqosz[address] [place], [place] [address]SyDr.Yilan Turner 66-83-4927Ioum [Mass/Vol]59.0 ug/aRWhvuwg88.0-170.0The [facility] Hospital LimaComment on above:Performed By: #### HGB #### [facility] [address] [place], [place] [address] Dr. Omid BowdenMASHAWNA POST BIOPSY RIGHTon 16-05-3002SOLOS POST BIOPSY RIGHT Patient: HARMAN MCLEOD Exam Date: 08/19/2022 : 1940 Gender:F Ordering : DR MATEUS PERRY . Admission #: [id number] Family : Order #: [id number] CLICK HERE TO VIEW EXAM This report [...] by: Judson Bauman MD on 09/06/2022 at 09:57[facility] PROTIMEon 93-15-0867GBF Coag (PPP) [Relative time]0.99 {INR}NormalThe [facility] Hospital LimaComment on above:Performed By: #### PT, PTT ####[facility] [address]vyqponjk[address] [place], [place] [address]AxMedardo Damon GUIDELINES SEE BELOWKettering Health Main CampusComment on above:Result Comment: DESIRED INR: 2.0 - 3.0 CONDITIONS NOT LISTED BELOW 2.5 - 3.5 FOR PROSTHETIC HEART VALVE REPLACEMENT 2.5 - 3.5 RECURRENT THROMBOSISPerformed By: #### PT, PTT ####[facility] [address]ircpz[address] [place], [place] [address]Ww. Omid BowdenPT Coag (PPP) [Time]10.7 sNormal9.0-11.6The [facility] Hospital LimaComment on above:Performed By: #### PT, PTT ####[facility] [address]jganlsp[address] [place], [place] [address]Yp. Omid BowdenPTTon 31-97-1018eINW Coag (Bld) [Time]26.0 vHzsqvz61.3-36.2The [facility] LimaComment on above:Performed By: #### PT, PTT ####[facility] [address]hp[address] [place], [place] [address]Zy. Omid BowdenUS VAC ASST BX BRST RT W CLIPon 18-68-3521YY VAC ASST BX BRST RT W CLIPPatient: HARMAN MCLEOD Exam Date: 08/19/2022 : 1940 Gender:F Ordering : DR MATEUS PERRY . Admission #: [id number] Family : Order #: [id number] CLICK HERE TO VIEW EXAM This report [...] by: Judson Bauman MD on 09/06/2022 at 09:55[facility] CULTURE URINEon 76-14-2104IYUWIRF URINEIsolate 1 Enterococcus faecalis 100,000 cfu/mL of ORGANISM 1 Enterococcus faecalis ANTIBIOTIC M.I.C RX STATUS Beta-Lactamase Neg NEG F Benzylpenicillin 4 S F Ampicillin <=2 S F Gentamicin High Level (synergy) SYN-S S F Streptomycin High Level (synergy) SYN-R R F Ciprofloxacin >=8 R F Levofloxacin >=8 R F Quinupristin/Dalfopristin 8 R F Linezolid 1 S F Vancomycin 1 S F Tetracycline >=16 R F Nitrofurantoin <=16 S FNormalThe [facility] Hospital LimaComment on above:Performed By: #### URCX ####[facility] [address]ydml[address] [address]Dr. Omid Chaves ADILIA ADMITon 79-61-2505MC [Catalytic activity/Vol] 128 U/LBlwtgt15-123Yys [facility] LimaComment on above:Performed By: #### LIPID, BMP #### [facility] [address] [address] [address] Omid Sawyer.MB [Mass/Vol]2.88 ng/mLNormal<=3.60[facility] Comment on above:Performed By: #### LIPID, BMP #### [facility] [address] [address] [address] Omid GarzaTROP24.1 pg/mLNormal4.0-51.3The [facility] LimaComment on above:Result Comment: CUT-OFF POINTS HAVE BEEN ESTABLISHED BASED ON THE FOURTH UNIVERSAL DEFINITIONS OF MYOCARDIAL INFARCTION. THE UPPER REFERENCE LIMIT (URL) OF TROPONIN, DEFINED THE 99TH PERCENTILE OF cTnI DISTRIBUTION IN A REFERENCE POPULATION, HAS BEEN CONFIRMED THE DECISION THRESHOLD FOR NV DIAGNOSIS.Performed By: #### LIPID, BMP #### [facility] [address] [address] [address] Omid KirbyO61 ng/mLNormal9-82The [facility] Hospital LimaComment on above: Performed By: #### LIPID, BMP #### [facility] [address] [place] [address] Dr. Omid Tolliver AUTO DIFFon 92-83-6747BRPZ #0.0 103/ulNormal0.0-0.1The [facility] Hospital LimaComment on above:Performed By: #### HGB #### [facility] [address] [place] [address] Dr. Omid BowdenBasophils/100 WBC (Bld)0.4 %Normal0.2-2.0[facility] Comment on above:Performed By: #### HGB #### [facility] [address] [place] [address] Dr. Omid Maldonado #0.3 103/ulNormal0.0-0.7The [facility] LimaComment on above: Performed By: #### HGB #### [facility] [address] [place] [address] Dr. Omid Batesosinophils/100 WBC (Bld)2.6 %Normal0.9-7.0[facility] Comment on above:Performed By: #### HGB #### [facility] [address] [place] [address] Dr. Omid Batesrythrocyte distribution width (RBC) [Ratio]14.1 %Savkcp47.0-15.0 The [facility] Hospital LimaComment on above:Performed By: #### HGB #### [facility] [address] [place] [address] Dr. Omid BowdenHematocrit (Bld) [Volume fraction]35.5 %Critically low36.0-48.0 [facility] HospitalComment on above:Performed By: #### HGB #### [facility] [address] [place] [address] Dr. Omid BowdenHemoglobin (Bld) [Mass/Vol]11.6 g/dLCritically low12.0-16.0The [facility] LimaComment on above:Performed By: #### HGB #### [facility] [address] [place] [address] Dr. Omid Aceves #0.06 10e3/ulCritically high0.00-0.03The [facility] Comment on above:Performed By: #### HGB #### [facility] [address] [place] [address] Dr. Omid Aceves %0.6 %Critically high0.0-0.5The [facility] LimaComment on above:Performed By: #### HGB #### [facility] [address] [place] [address] Dr. Omid Mosley #3.4 103/ulNormal1.2-3.8The [facility] LimaComment on above:Performed By: #### HGB #### [facility] [address] [place] [address] Dr. Omid Barneshocytes/100 WBC (Bld)35.5 %Kfezvc70.5-60.0The [facility] LimaComment on above:Performed By: #### HGB #### [facility] [address] [place] [address] Dr. Omid Ogden DIFF REQNONormalThe [facility] Hospital LimaComment on above: Performed By: #### HGB #### [facility] [address] [place] [address] Dr. Omid Hodgson (RBC) [Entitic mass]29.5 umJlxiuk77.7-34.0The [facility] Hospital LimaComment on above:Performed By: #### HGB #### [facility] [address] [place] [address] Dr. Omid Hodgson (RBC) [Mass/Vol]32.7 g/vAVsgjen63.9-35.2The [facility] Hospital LimaComment on above:Performed By: #### HGB #### [facility] [address] [place] [address] Dr. Omid HodgsonV (RBC) [Entitic vol]90.3 qMHsarid95.0-99.0[facility]:Performed By: #### HGB #### [facility] [address] [place] [address] Dr. Omid Kaur #1.0 103/ulCritically high0.3-0.8[facility] Comment on above:Performed By: #### HGB #### [facility] [address] [place] [address] Dr. Omid Fritzocytes/100 WBC (Bld)10.5 %Normal1.7-12.0[facility] Comment on above:Performed By: #### HGB #### [facility] [facility] [address] [place] [address] Dr. Omid Moreno #4.8 103/ulNormal1.4-6.5The [facility] Hospital LimaComment on above:Performed By: #### HGB #### [facility] [address] [place] [address] Dr. Omid Castroutrophils/100 WBC (Bld)50.4 %Vmukfi86.0-75.0The [facility] LimaComment on above:Performed By: #### HGB #### [facility] [address] [place] [address] Dr. Omid Garcia mean volume (Bld) [Entitic vol]9.1 fLCritically low 9.5-13.5The [facility] LimaComment on above:Performed By: #### HGB #### [facility] [address] [place] [address] Dr. Omid BowdenPLT276 103/inUidugm735-162Xqm [facility]imaComment on above: Performed By: #### HGB #### [facility] [address] [place] [address] Dr. Omid BowdenRBC3.93 106/ulCritically low4.20-5.40The [facility] LimaComment on above:Performed By: #### HGB #### [facility] [address] [place] [address] Dr. Omid BowdenWBC9.5 103/ulNormal4.0-11.0[facility] HospitalComment on above: Performed By: #### HGB #### [facility] [address] [address] [address] Omid Land URINE PROFILEon 23-87-0428Hbzbiulyk Ql (U)NegativeNormal NEGATIVEWvumedicine Harrison Community HospitalComment on above:Performed By: #### GABRIEL OTTOR ####[facility] Qmgchifiid[address] [id number]. Omid ChangClarity (U)CLEARNormalCLEARWvumedicine Harrison Community HospitalComment on above: Performed By: #### ISSAC OTTO ####[facility] [address]jtupr[address] [address]Dr. Omid ChangColor (U)LT. YELLOWNormalYELLOWWvumedicine Harrison Community HospitalComment on above:Performed By: #### ISSAC OTTO ####[facility] Dnltmflrej[address] [address]Dr. Omid Trejo A micrscopic examination will be performed if indicated.NormalThe [facility] Hospital [facility]imaComment on above:Performed By: #### ISSAC OTTO ####[facility] [address]hyuvubc[address] [address]Dr. Omid ChangGlucose Ql (U) NegativeNormalNEGATIVEWvumedicine Harrison Community HospitalComment on above:Performed By: #### ISSAC OTTO ####[facility] [address]ewd[address] [address]Dr. Omid ChangHemoglobin Ql (U)NegativeNormalNEGATIVEWvumedicine [facility] Community Hospital Comment on above:Performed By: #### GABRIEL OTTOR ####[facility] [address]itumkcm[address] [address]Dr. Aixalan ChangKetones Ql (U) NegativeNormalNEGATIVEWvumedicine Harrison Community HospitalComment on above:Performed By: #### ISSAC OTTO ####[facility] [address]axq[address] [address]Dr. Omid BowdenLEUKOCYTESTRACEAbnormalNEGATIVEWvumedicine Harrison Community HospitalComment on above:Performed By: #### ISSAC OTTO ####[facility] Q[address]kfcaoum[address] [id number]. Omid KalNitrite Ql (U)NegativeNormal NEGATIVEThe [facility]ga[facility]ysville HospitalComment on above:Performed By: #### GABRIEL OTTOR ####[facility] Rdgwlbatwi[address] [address]Dr. Omid BowdenpH (U)6.0 [pH]Normal5-9The [facility]imaComment on above: Performed By: #### ISSAC OTTO ####[facility] [address]abohw[address] [address]Dr. Omid BowdenSPEC GRAVITY1.626Hkitzq7.005-<=1.025The [facility]imaComment on above:Performed By: #### ISSAC OTTO ####[facility] [address]kteyfsar[address] [address]Dr. Omid BowdenUA PROTEINNegativeNormalNEGATIVE/ TRACEThe Mcga[facility]ysville HospitalComment on above: Performed By: #### ISSAC OTTO ####[facility] [address]ofduvn[address] [address]Dr. Omid BowdenUR MICRO INDINDICATEDNormalThe [facility]imaComment on above:Performed By: #### ISSAC OTTO ####[facility] Cgtoymovvl[address] [address]Dr. Omid BowdenUrobilinogen Qn (U)0.2 {Jose'U}/dLNormal0.2 - 1.0The [facility] HospitalComment on above: Performed By: #### ISSAC OTTO ####[facility] [address]vwbrnzrn[address] [address]Dr. Omid BowdenOCC BLD IMMUNO SCREENon 37-88-9436ZKMRFW BLOODNegativeNormalNEGATIVEThe [facility]ysville HospitalComment on above:Performed By: #### OBSCRN #### [facility] [address] [address] [address] Omid BowdenPROF CHEM 8 (BAS METB)on 52-40-0443Hmgvs gap [Moles/Vol]5.5 mmol/LNormalThe [facility]imaComment on above:Performed By: #### LIPID, BMP #### [facility] [address] [address] [address] Omid BowdenCalcium [Mass/Vol]8.6 mg/dLNormal8.5-10.1The [facility] Comment on above:Performed By: #### LIPID, BMP #### [facility] [address] [address] [address] Omid BowdenChloride [Moles/Vol]103 mmol/XIolixh65-019Wem [facility] Comment on above:Performed By: #### LIPID, BMP #### [facility] [address] [address] [address] Omid BowdenCO2 [Moles/Vol]31.8 mmol/NIlxmne66.0-32.0[facility] Comment on above:Performed By: #### LIPID, BMP #### [facility] [address] [address] [address] Omid BowdenCreatinine [Mass/Vol]0.99 mg/dLNormal0.55-1.02The [facility]imaComment on above:Performed By: #### LIPID, BMP #### [facility] [address] [place] [address] Dr. Omid BatesGFR-AF GHANAIAN>60Normal>=60The [facility]imaComment on above:Performed By: #### LIPID, BMP #### [facility] [address] [address] [address] Omid BatesGFR-NON AF FHJCWTUY75 mL/min/1.93k6Ucjdjdjgbh low>=60The [facility]imaComment on above:Performed By: #### LIPID, BMP #### [facility] [address] [place] [address] Dr. Omid BowdenGlucose [Mass/Vol]112 mg/dLCritically ctsb98-308Wbm [facility]imaComment on above:Performed By: #### LIPID, BMP #### [facility] [address] [address] [address] Omid BowdenPotassium [Moles/Vol]3.3 mmol/LCritically low3.5-5.1The [facility]imaComment on above:Performed By: #### LIPID, BMP #### [facility] [address] [address] [address] Omid Barreraum [Moles/Vol]137 mmol/ZNshcsl563-053Cpr [facility] Comment on above:Performed By: #### LIPID, BMP #### [facility] [address] [address] [address] Omid Lawson nitrogen [Mass/Vol]20.0 mg/dLCritically high7.0-18.0The [facility]Comasc[facility] on above:Performed By: #### LIPID, BMP #### [facility] [address] [address] [address] Omid Lawson nitrogen/Creatinine [Mass ratio]20.2 mg/mgNoMagruder HospitalComment on above:Performed By: #### LIPID, BMP #### [facility] [address] [place] [address] Dr. Omid Busch MICROSCOPIC ONLYon 81-17-5177LBAEFGVVVERKTLsemnnswHNOB SEEN The [facility]imaComment on above:Performed By: #### GABRIEL OTTOR ####[facility] [address] [id number] Crockettcteria identified Cx Nom (U)INDICATEDNoMagruder Hospital Comment on above:Performed By: #### GABRIEL OTTOR ####[facility] [address]xywjqt[address] [address]DrMedardo BowdenCASTNONE SEEN NormalNONE SEENWvumedicine Harrison Community HospitalComascension borg[facility] allegan hospital on above:Performed By: #### CLARITA ERUR ####[facility] [address]yttoz[address] [address]Dr. Yilan ChangCrystals LM Nom (Urine sed)NONE SEENNormalNONE SEENWvumedicine Harrison Community HospitalComment on above:Performed By: #### GABRIEL OTTOR ####[facility] [address]owtr[address] [address]Dr. Aixamegan ChangEpithelial cells LM Ql (Urine sed)FEWAbnormalNONE SEEN /RAREThe [facility] Hospital [facility]imaComment on above:Performed By: #### GABRIEL OTTOR ####[facility] [address] [address]Dr. Omid ChangMUCOUSNONE SEENNormalNONE SEENThe [facility] Hospital [facility]imaComment on above:Performed By: #### GABRIEL OTTOR ####[facility] [address]ckji[address] [address]Dr. Omid ChangRBC0-2 Normal0-2[facility] Community HospitalComment on above:Performed By: #### GABRIEL OTTOR ####[facility] [address]cmjwa[address] [address]Dr. Omid EnaumJJG07-84OtgpincpWSTQ SEENWvumedicine Harrison Community HospitalComment on above: Performed By: #### GABRIEL OTTOR ####[facility] [address]ws[address]khwe[address] [address]Dr. Aixamegan KalXR CHEST 1 Von 09-18-7910HT CHEST 1 V CHEST X-RAY HISTORY: Chest pain COMPARISON: 04/06/2021 TECHNIQUE: 1 view chest is submitted for review. FINDINGS: The lungs are adequately expanded without evidence for acute infiltrate or effusion. The cardiac silhouette is enlarged. Pulmonary vascularity is unremarkable. Osseous structures are within expected limits for patients age. . IMPRESSION: Cardiomegaly. Electronically authenticated by: HILL BAILON Date: 2022-08-14 00:46NoMagruder HospitalCovid-19 PCR (CVDTB)on 66-55-5560UKUQ-CoV-2 (COVID-19) RNA MARII+probe Ql (Unsp spec)Not detectedNormalNOT DETECTEDThe [facility] Comment on above:Result Comment: When diagnostic testing is negative, the [...] for this test is supported by the [place] of Health and Human Service's declaration that circumstances exist to justify the emergency use of in vitro diagnostics for the detection and/or diagnosis of the virus that causes COVID-19. This EUA will remain in effect for the duration of the COVID-19 declaration justifying emergency of IVDs, unless it is terminated or revoked by the FDA (after which the test may no longer be used).Performed By: #### CVDTBH #### [facility] [address] [place] [address] Dr. Omid BowdenMG MAMM RT DIAG FUon 20-42-5165IW MAMM RT DIAG FUPatient: HARSHA HARMAN L. Exam Date: 08/08/2022 : 1940 Gender:F Ordering : DR MATEUS PERRY . Admission #: [id number] Family : Order #: [id number] CLICK HERE TO VIEW EXAM RADIOLOGY REPORT [...] uterine cancer at age 39. LOCATION: [facility] BREAST COMPOSITION: Scattered areas fibroglandular density. FINDINGS: [...] by: Alfonso George M.D. on 08/08/2022 at 15:28[facility] CampusPROF CHEM 8 (BAS METB)on 76-74-1564Nwmff gap [Moles/Vol]9.3 mmol/LNormal The [facility]imaComment on above:Performed By: #### BMP #### [facility] [address] [place] [address] Dr. Omid BowdenCalcium [Mass/Vol]8.1 mg/dLCritically low8.5-10.1The [facility]imaComment on above:Performed By: #### BMP #### [facility] [address] [address] [address] Omid BowdenChloride [Moles/Vol]100 mmol/RLtfeum54-777VpaWvumedicine Harrison Community Hospital Comment on above:Performed By: #### BMP #### [facility] [address] [address] [address] Omid BowdenCO2 [Moles/Vol]31.9 mmol/BUmqfyc97.0-32.0[facility] Comment on above:Performed By: #### BMP #### [facility] [address] [address] [address] Omid BowdenCreatinine [Mass/Vol]1.25 mg/dLCritically high0.55-1.02The [facility] Hospitalment on above:Performed By: #### BMP #### [facility] [address] [address] [address] Anne ChangEGFR-AF MMQJPKVB65 mL/min/1.12s2Lgdriznkyx low>=60The [facility]Comment on above:Performed By: #### BMP #### [facility] [address] [address] [address] Omid BatesGFR-NON AF AKAWYXGO15 mL/min/1.90a1Twcdaasuxo low>=60The [facility]Comment on above:Performed By: #### BMP #### [facility] [address] [address] [address] Omid BowdenGlucose [Mass/Vol]215 mg/dLCritically iipy85-888Blz [facility]Comment on above:Performed By: #### BMP #### [facility] [address] [address] [address] Omid BowdenPotassium [Moles/Vol]3.2 mmol/LCritically low3.5-5.1The [facility]imaComment on above:Performed By: #### BMP #### [facility] [address] [address] [address] Omid BowdenSodium [Moles/Vol]138 mmol/OWyilpa369-240Sis [facility] Comment on above:Performed By: #### BMP #### [facility] [address] [address] [address] Omid BowdenUrea nitrogen [Mass/Vol]32.0 mg/dLCritically high7.0-18.0The [facility]Comment on above:Performed By: #### BMP #### [facility] [address] [address] [address] Omid BowdenUrea nitrogen/Creatinine [Mass ratio]25.6 mg/mgNormalThe [facility]Comment on above:Performed By: #### BMP #### [facility] [address] [address] [address] Omid BowdenUS BREAST RIGHT LIMITEDon 19-63-1355EX BREAST RIGHT LIMITED Patient: HARMAN MCLEOD Exam Date: 08/08/2022 : 1940 Gender:F Ordering : DR MATEUS PERRY . Admission #: [id number] Family : Order #: [id number] CLICK HERE TO VIEW EXAM RADIOLOGY REPORT [...] uterine cancer at age 39. LOCATION: [facility] BREAST COMPOSITION: Scattered areas fibroglandular density. FINDINGS: [...] by: Alfonso George M.D. on 08/08/2022 at 15:28NoMagruder HospitalCALCIUMon 42-35-5386Zqbbhno [Mass/Vol]8.9 mg/dLNormal8.5-10.1The [facility]Comment on above:Performed By: #### HGB #### [facility] [address] [address] [address] Omid BowdenCREATININEon 42-41-2000Fxrdyqpssa [Mass/Vol]1.19 mg/dLCritically high0.55-1.02The [facility] on above:Performed By: #### HGB #### [facility] [address] [address] [address] Anne ChangEGFR-AF RETOWYZV28 mL/min/1.20p1Vopzwckcgp low>=60[facility] HospitalComment on above:Performed By: #### HGB #### [facility] [address] [address] [address] Omid BatesGFR-NON AF BCAYCGGT42 mL/min/1.09t8Unffybjfnh low>=60The [facility]Comment on above:Performed By: #### HGB #### [facility] [address] [id number] [address] Omid BowdenMG MAMM SCREEN 3D DAVID CADon 13-87-2552HM MAMM SCREEN 3D DAVID CAD Patient: HARMAN MCLEOD Exam Date: 07/19/2022 : 1940 Gender:F Ordering : DR MATEUS PERRY . Admission #: [id number] Family : Order #: [id number] CLICK HERE TO VIEW EXAM RADIOLOGY REPORT [...] uterine cancer at age 39. LOCATION: [facility] BREAST COMPOSITION: Scattered areas fibroglandular density. FINDINGS: [...] by: Judson Bauman MD on 07/20/2022 at 07:33[facility] CampusXR DEXA BONE DENSITYon 29-17-0319YQ DEXA BONE DENSITYEXAMINATION: XR DEXA BONE DENSITY, 07/19/2022 2:47 PM EST HISTORY: [...] Electronically authenticated by: JUDSON BAUMAN Date: 2022-07-19 20:17[facility] CampusCALCIUM, IONIC (POC)on 95-83-6304EKR Ionized Calcium1.21 mmol/L 1.15 - 1.33 mmol/LBON [facility] HEALTHCHLORIDE (POC)on 94-87-5217Vtidnxtg [Moles/Vol]103 mmol/L98 - 107 mmol/LBON [facility] HOSPITALCreatinine W/GFR Point of Careon 80-09-5817Xraqimdnaq [Mass/Vol]0.93 mg/dL0.51 - 1.19 mg/dLBON [facility] JEW[facility] HOSPITALeGFR, POCmL/min/1.54y2SSM [facility] HOSPITALComment on above: Effective Jun 13, 2022 These [...] affects renal tubular secretion. Lactic Acid, POCon 63-16-6809CXL Lactic Acid1.56 mmol/LHigh0.56 - 1.39 mmol/LBON [facility] HOSPITALNo Panel Informationon 37-81-2720Jrplkitxnjxhkq and review of laboratory resultsAbnormalRIVERSIDE REGIONAL [facility]ENTER Glucose Fingerstickon 30-60-3092Djqaxvz [Mass/Vol]135 mg/sUOxsj05 - 105 mg/dL [facility] CENTERInterpretation and review of laboratory resultsAbnormal [facility] Glucoseon 56-03-5284Jyhxsho [Mass/Vol]147 mg/qPPidi41 - 100 mg/dLBON [facility] HOSPITALCT urea (BUN)on 96-21-8522Cmku nitrogen [Mass/Vol]20 mg/dL8 - 26 mg/dLBON [facility] POTASSIUM (POC)on 15-96-1485Shyefxoud [Moles/Vol]3.7 mmol/L3.5 - 4.5 mmol/LBON [facility] THE JEWISH HOSPITALSODIUM (POC)on 36-17-4899Agukmc [Moles/Vol]141 mmol/L138 - 146 mmol/LBON [facility] HOSPITALPROF CHEM 8 (BAS METB)on 40-49-6947Rekjx gap [Moles/Vol]9.0 mmol/LNormalThe [facility]Comment on above:Performed By: #### BMP ####[facility] [address] [address]Dr.Omid ChangCalcium [Mass/Vol]9.0 mg/dLNormal8.5-10.1The [facility]imaComment on above:Performed By: #### BMP ####[facility] [address]umpsox[address] [address]Dr.Omid ChangChloride [Moles/Vol]98 mmol/WWjkurw27-854Jtp [facility]Comment on above:Performed By: #### BMP ####[facility] M[address]eb[address] [address]Dr.Omid ChangCO2 [Moles/Vol]33.2 mmol/LCritically high21.0-32.0The [facility]imaComment on above:Performed By: #### BMP ####[facility] [address] [address]Dr.Omid ChangCreatinine [Mass/Vol]1.32 mg/dLCritically high0.55-1.02The [facility]imaComment on above:Performed By: #### BMP ####[facility] [address] [address]Dr.Omid ChangEGFR-AF SUIOEZPB93 mL/min/1.73m2 Critically low>=60The [facility]imaComment on above:Performed By: #### BMP ####[facility] [address]fl[address] [address]Dr. Yilan ChangEGFR-NON AF DUFZDUMM14 mL/min/1.62w6Smaznclagt low>=60The [facility]Comment on above:Performed By: #### BMP ####[facility] [address]judi[address] [address]Dr.Yilan ChangGlucose [Mass/Vol]220 mg/dLCritically kabu91-778Jtp [facility]Comment on above: Performed By: #### BMP ####[facility] Exqtwtetew[address] [address]Dr.Yilan ChangPotassium [Moles/Vol]3.2 mmol/L Critically low3.5-5.1The [facility]imaComment on above:Performed By: #### BMP ####[facility] [address]spgv[address] [address]Dr. Yilan ChangSodium [Moles/Vol]137 mmol/XOorfhx157-638Ixj [facility]imaComment on above:Performed By: #### BMP ####[facility] [address]tvhctc[address] [address]Dr.Yilan ChangUrea nitrogen [Mass/Vol]31.0 mg/dL Critically high7.0-18.0The [facility]imaComment on above:Performed By: #### BMP ####[facility] [address]ai[address] [address]Dr. Yilan ChangUrea nitrogen/Creatinine [Mass ratio]23.5 mg/mgNormalThe [facility]imaComment on above:Performed By: #### BMP ####[facility] [address]aws[address] [place], [place] [address]Dr.Yilan ChangECHOCARDIO M/2D COMPLETEon 00-40-7256GUYWAYCERV M/2D COMPLETEPatient: HARMAN MCLEODMedardo Exam Date: 04/12/2022 : 1940 Gender:F Ordering : [facility] Admission #: [id number] Family : Order #: [id number] CLICK HERE TO VIEW EXAM ECHOCARDIOGRAM REPORT [...] 6. Mildly elevated right-sided pressures. Dictated by: Bertram Keyes M.D. on 04/12/2022 at 19:05 Approved by: Bertram Keyes M.D. on 04/12/2022 at 19:15NormalWvumedicine Harrison Community HospitalPROF CHEM 8 (BAS METB)on 33-11-9005Mddvp gap [Moles/Vol]12.4 mmol/L NormalThe [facility]imaComment on above:Performed By: #### BMP ####[facility] [address]prs[address] [place], [place] [address]VsMedardoAixamegan Bowden Calcium [Mass/Vol]9.1 mg/dLNormal8.5-10.1The [facility]imaComment on above: Performed By: #### BMP ####[facility] [address]aegm[address] [address]Dr.Yilan ChangChloride [Moles/Vol]100 mmol/LNormal 98-107The [facility]imaComment on above:Performed By: #### BMP ####[facility] [address]zwaypjuc[address] [address]Dr.Yilan ChangCO2 [Moles/Vol]33.0 mmol/LCritically high21.0-32.0The [facility]ysville HospitalComment on above:Performed By: #### BMP ####[facility] Govxkngiqa[address] [place], [place] [address]Dr.Yilan ChangCreatinine [Mass/Vol]1.15 mg/dL Critically high0.55-1.02The [facility]imaComment on above:Performed By: #### BMP ####[facility] Wrzmijwgtq[address] [place], [place] [address]Dr.Yilan ChangEGFR-AF LNIVTPBC63 mL/min/1.14a8Nudooccxbr low>=60The [facility]imaComment on above:Performed By: #### BMP ####[facility] [address]hakcrj[address] [place], [place] [address]Dr.Yilan ChangEGFR-NON AF SGABVJKC05 mL/min/1.62p9Durtjafcal low>=60The [facility]imaComment on above: Performed By: #### BMP ####[facility] [address]szmkowqgt[address] [place], [place] [address]Dr.Yilan ChangGlucose [Mass/Vol]167 mg/dLCritically hyvj35-882Wxh [facility]imaComment on above:Performed By: #### BMP ####[facility] [address]zsz[address]rei[address] [place], [place] [address]Dr. Yilan ChangPotassium [Moles/Vol]3.4 mmol/LCritically low3.5-5.1The [facility]imaComment on above:Performed By: #### BMP ####[facility] Festfwicam[address] [place], [place] [address]Dr.Yilan ChangSodium [Moles/Vol]142 mmol/QQkblrt165-833Miw [facility]ville HospitalComment on above: Performed By: #### BMP ####[facility] [address] [place] [id number] ChangUrea nitrogen [Mass/Vol]23.0 mg/dL Critically high7.0-18.0The [facility]imaComment on above:Performed By: #### BMP ####[facility] [address] [place] [id number] Anne ChangUrea nitrogen/Creatinine [Mass ratio]20.0 mg/mgNoMagruder HospitalComment on above:Performed By: #### BMP ####[facility] [address]semz[address] [address]Dr.Yilan BowdenSYMPTOMATIC COVID-19 ANTIGENon 56-73-6424XRD StatementSAvita Health System Ontario Hospital Comment on above:Result Comment: This test has not been FDA [...] section 564(b)(1) of the Act, 21 U.S.C. 360bbb- 3(b)(1), unless the declaration is terminated or authorization is revoked sooner.Performed By: #### LIPID, BMP #### [facility] [address] [address] [address] Omid Gonzales-CoV-2 (COVID-19) RNA MARII+probe Ql (Unsp spec)Positive Critically abnormalNEGATIVEWvumedicine Harrison Community HospitalComment on above:Performed By: #### LIPID, BMP #### [facility] [address] [address] [address] Omid BowdenHEMOGLOBINon 91-46-3117Dxussqncgo (Bld) [Mass/Vol]12.3 g/dLNoal 12.0-16.0The [facility]imaComment on above:Performed By: #### HGB #### [facility] [address] [place] [address] Dr. Omid Godinez 84-11-1106Ywypofzgluk peptide B (Bld) [Mass/Vol]598.0 pg/mL Normal<=1,800.0The [facility] LimaComment on above:Performed By: #### LIPID, BMP #### [facility] [address] [place] [address] Dr. Omid BowdenPROF CHEM 8 (BAS METB)on 73-50-5297Nllix gap [Moles/Vol]11.9 mmol/LNormalThe [facility]imaComment on above:Performed By: #### LIPID, BMP #### [facility] [address] [place] [address] Dr. Omid BowdenCalcium [Mass/Vol]9.1 mg/dLNormal8.5-10.1The [facility] Comment on above:Performed By: #### LIPID, BMP #### [facility] [address] [place] [address] Dr. Omid BowdenChloride [Moles/Vol]98 mmol/HTuufaj34-006Imz [facility] Comment on above:Performed By: #### LIPID, BMP #### [facility] [address] [place] [address] Dr. Omid BowdenCO2 [Moles/Vol]33.2 mmol/LCritically high21.0-32.0The [facility]imaComment on above:Performed By: #### LIPID, BMP #### [facility] [address] [place] [address] Dr. Omid BowdenCreatinine [Mass/Vol]1.28 mg/dLCritically high0.55-1.02The [facility]imaComment on above:Performed By: #### LIPID, BMP #### [facility] [address] [place] [address] Dr. Omid BatesGFR-AF VADASYEJ27 mL/min/1.94e5Wxfhcziwfd low>=60The [facility] HospitalComment on above:Performed By: #### LIPID, BMP #### [facility] [address] [address] [address] Omid BatesGFR-NON AF XPZREYAZ67 mL/min/1.21k6Dcxeqyohua low>=60The [facility]imaComment on above:Performed By: #### LIPID, BMP #### [facility] [address] [address] [address] Omid BowdenGlucose [Mass/Vol]182 mg/dLCritically dfwo23-944Ngg [facility]imaComment on above:Performed By: #### LIPID, BMP #### [facility] [address] [address] [address] Omid BowdenPotassium [Moles/Vol]3.1 mmol/LCritically low3.5-5.1The [facility]imaComment on above:Performed By: #### LIPID, BMP #### [facility] [address] [place] [address] Dr. Omid BowdenSodium [Moles/Vol]140 mmol/BArkpsk480-353Kgf [facility] Comment on above:Performed By: #### LIPID, BMP #### [facility] [address] [place] [address] Dr. Omid BowednUrea nitrogen [Mass/Vol]30.0 mg/dLCritically high7.0-18.0The [facility]imaComment on above:Performed By: #### LIPID, BMP #### [facility] [address] [place] [address] Dr. Omid Lawson nitrogen/Creatinine [Mass ratio]23.4 mg/mgNormalThe [facility]imaComment on above:Performed By: #### LIPID, BMP #### [facility] [address] [place] [address] Dr. Omid BowdenXR CHEST 2 Von 33-86-8815KU CHEST 2 VEXAMINATION: XR CHEST 2 V HISTORY: Dyspnea , productive cough, [...] Electronically authenticated by: ALFONSO GEORGE Date: 2022-02-09 11:53[facility] CampusNo Panel Informationon 69-17-5914Wuild HealthPOCT Glucoseon 22-11-7082Uhaivcs [Mass/Vol]196 mg/mRNzzp49 - 100 mg/dLMain Campus Medical Center Everpix Interpretation and review of laboratory resultsAbnormalUniversity Hospitals Geauga Medical CenterProtalexPOTASSIUM (POC)on 83-08-1470Cafwzqulv [Moles/Vol]3.7 mmol/L3.5 - 4.5 mmol/LMpremier health atrium medical center Everpix TYPE AND SCREENon 41-20-0570WSV/RhPositiveUniversity Hospitals Geauga Medical CenterProtalexArm Band NumberBE [id number] [facility] HealthExpiration Date12/16/2021,2359[facility] EverpixUniversity Hospitals Geauga Medical CenterProtalexEKG 12 lead Ordered By: Dennis Garcia on 41-98-0314Wmfayq Bevs69LCGTremb Health Work Phone: p Amsn77oygaixlJavsw Health Work Phone: p-R Vkcgckmi865 [employer] Work Phone: Q-T Jjmjotdx512 [employer] Work Phone: QRS Ukpkdniw691 [employer] Work Phone: QTc Calculation (Bazett)488 [employer] Work Phone: r Piov34uwusurpBkkuk Health Work Phone: T Dxmv666oxtqbvnWicnj Health Work Phone: Ventricular Gcbd70SIOUmvsw Health Work Phone: [facility] Hospit[facility] Geauga Medical CenterProtalex Work Phone: eKG 12 leadon 44-69-8543Vqyid rhythm with Premature atrial complexes Left bundle branch block Abnormal ECG When compared with ECG of 12-MAY-2021 12:39, T wave inversion now evident in Inferior leadsMHPN STV MUSESharma, Ajeet L, MD - 12/07/2021 Sinus rhythm with Premature atrial complexes Left bundle branch block Abnormal ECG When compared with ECG of 12-MAY-2021 12:39, T wave inversion now evident in Inferior leadsMercy Health Perry[facility] Hospital Work Phone: cbc auto differentialon 55-55-4346Jitwlbiv Eos #0.13 [facility] HospitalAbsolute Immature Granulocyte0.12[facility] HospitalAbsolute Lymph #3.18 [facility] HospitalAbsolute [place] #1.22HighMercy Health Perrysburg HospitalBasophils (Bld) [#/Vol]0.05 10*3/uLMercy Health Perrysburg HospitalBasophils/100 WBC (Bld)0 %0 - 2 %[facility] HospitalEosinophils/100 WBC (Bld)1 %1 - 4 %[facility] HospitalHematocrit (Bld) [Volume fraction]38.4 %36.3 - 47.1 %[facility] HospitalHemoglobin.gastrointestinal spec 1 Ql (Stl)12.2 g/dL11.9 - 15.1 g/dLMercy Health Perrysburg HospitalImmature granulocytes/100 WBC (Bld)1 %Zvgv7Ldtgu[address] [place] [address] Interpretation and review of laboratory resultsAbnormalMercy Health Perrysburg Hospital Lymphocytes/100 WBC (Bld)25 %24 - 43 %[facility] HospitalH (RBC) [Entitic mass]29.9 pg25.2 - 33.5 pgChillicothe HospitalHC (RBC) [Mass/Vol]31.8 g/dL28.4 - 34.8 g/dLChillicothe HospitalV (RBC) [Entitic vol]94.1 fL82.6 - 102.9 fLMercy Health Perrysburg HospitalMonocytes/100 WBC (Bld)10 %3 - 12 %[facility] HospitalNRBC Automated0.00.0 per 100 WBCMercy Health Perrysburg Hospital Platelet distribution width (Bld) [Ratio]14.5 %High11.8 - 14.4 %[facility] Platelet mean volume (Bld) [Entitic vol]10.1 fL8.1 - 13.5 fLMercy Health Perrysburg Hospital Platelets (Bld) [#/Vol]266 10*3/uLMercy Health Perrysburg HospitalRBC (Bld) [#/Vol]4.08 10*6/uL3.95 - 5.11 m/uLMain Campus Medical Center HealthRBC (Bld) [#/Vol]ANISOCYTOSIS PRESENTMercy Health Perrysburg Hospital Segmented neutrophils/100 WBC (Bld)63 %36 - 65 %[facility] HospitalSegs Absolute7.88 [facility] HospitalWBC (Bld) [#/Vol]12.6 10*3/uLHighAurora Medical Center Comprehensive Metabolic Panel w/ Reflex to MGon 52-52-4830Ymjlczc [Mass/Vol]3.7 g/dL3.5 - 5.2 g/dLMain Campus Medical Center HealthAlbumin/Globulin [Mass ratio]1.1 {ratio}[facility] HospitalALP (Bld) [Catalytic activity/Vol]93 U/L35 - 104 U/LMercy HealthALT [Catalytic activity/Vol]12 U/L5 - 33 U/LMercy HealthAnion gap [Moles/Vol]14 mmol/L9 - 17 mmol/LMercy HealthAST [Catalytic activity/Vol]12 U/L<32[facility] Bilirubin [Mass/Vol]0.25 mg/dLLow0.3 - 1.2 mg/dLMain Campus Medical Center HealthCalcium [Mass/Vol] 9.1 mg/dL8.6 - 10.4 mg/dLMain Campus Medical Center HealthChloride [Moles/Vol]95 mmol/LLow98 - 107 mmol/LMercy HealthCO2 [Moles/Vol]30 mmol/L20 - 31 mmol/LMercy HealthCreatinine [Mass/Vol]1.07 mg/dLHigh0.50 - 0.90 mg/dLMercy Health Perrysburg HospitalFree PSA/Total PSA [Mass fraction]7.2 g/dL6.4 - 8.3 g/dLMain Campus Medical Center HealthGFR Iprqtmez38 mL/minLow>60 [facility] HealthGFR Non- Bqlmtzzj93 mL/minLow>60[facility] HealthGFR/1.73 sq M.predicted MDRD (S/P/Bld) [Vol rate/Area][facility] HospitalComment on above:Average GFR for 70 or more years old: 75 mL/min/1.73sq m Chronic Kidney Disease: <60 mL/min/1.73sq m Kidney failure: <15 mL/min/1.73sq m eGFR calculated using average adult body mass. Additional eGFR calculator available at: http://www.Oris4.com/multiple_crcl_2012.htm Glucose [Mass/Vol]188 mg/bIVdnt18 - 99 mg/dLMain Campus Medical Center HealthInterpretation and review of laboratory resultsAbnormalMain Campus Medical Center HealthPotassium [Moles/Vol]3.3 mmol/L Low3.7 - 5.3 mmol/LMercy HealthSodium [Moles/Vol]139 mmol/L135 - 144 mmol/LMercy HealthUrea nitrogen (BldV) [Mass/Vol]22 mg/dL8 - 23 mg/dLCleveland Clinic [facility] HealthMagnesiumon 22-73-8397Cntjlwujc [Mass/Vol]1.6 mg/dL1.6 - 2.6 mg/dLAurora Medical CenterNo Panel Informationon 74-87-2737Pc acute process. [facility] CONSOLIDATEDEXAMINATION: TWO XRAY VIEWS OF THE CHEST 12/06/2021 3:53 pm COMPARISON: Chest radiograph of 05/12/2021 HISTORY: ORDERING SYSTEM PROVIDED HISTORY: Pre-op chest exam TECHNOLOGIST PROVIDED HISTORY: Reason for Exam: pre op vaginectomy, cysto. no chest complaints FINDINGS: The lungs are without acute focal process. There is no effusion or pneumothorax. The cardiomediastinal silhouette is without acute process. The osseous structures are without acute process. [facility] Kael Black MD - 12/06/2021 EXAMINATION: TWO XRAY VIEWS [...] without acute process. IMPRESSION: No acute process. [employer] Phone: radiology Study observation (narrative)[employer] Phone: No Panel InformationOrdered By: Kael Freeman on 90-62-1897Qfpqp Health Work Phone: Creatinine W/GFR Point of CareOrdered By: Kin Abarca on 44-11-8262Pzmnlbdtae [Mass/Vol]0.89 mg/dL0.51 - 1.19 mg/dLUniversity Hospitals Geauga Medical CenterLocal Magnet Phone: GFR Non->60>60 mL/minUniversity Hospitals Geauga Medical CenterLocal Magnet Phone: GFR/1.73 sq M.predicted MDRD (S/P/Bld) [Vol rate/Area] mL/min/{1.73_m2}>60 mL/minUniversity Hospitals Geauga Medical CenterLocal Magnet Phone: GFR/1.73 sq M.predicted MDRD (S/P/Bld) [Vol rate/Area] [facility] CenterBeLocal Phone: comment on above:Average GFR for 70 or more years old: 75 mL/min/1.73sq m Chronic Kidney Disease: <60 mL/min/1.73sq m Kidney failure: <15 mL/min/1.73sq m eGFR calculated using average adult body mass. Additional eGFR calculator available at: http://www.[employer]/multiple_crcl_2012.htm No Panel InformationOrdered By: Kin Abarca on 48-77-9364Eoewp Health Work Phone: pOC Glucose FingerstickOrdered By: Kin Abarca on 26-77-0579Yvnioyj [Mass/Vol]163 mg/jHPtoa94 - 105 mg/dLUniversity Hospitals Geauga Medical CenterLocal Magnet Phone: Interpretation and review of laboratory results AbnormalUniversity Hospitals Geauga Medical CenterLocal Magnet Phone: [facility] Medical CenterLocal Magnet Phone: pOCT GlucoseOrdered By: Kin Abarca on 06-15-2021 Glucose [Mass/Vol]186 mg/zIFpyi17 - 100 mg/dLUniversity Hospitals Geauga Medical CenterLocal Magnet Phone: Interpretation and review of laboratory results AbnormalUniversity Hospitals Geauga Medical CenterLocal Magnet Phone: POTASSIUM (POC)Ordered By: Kin Abarca on 06-15-2021 Potassium [Moles/Vol]4.5 mmol/L3.5 - 4.5 mmol/LMercy Everpix Work Phone: eKG 12 leadOrdered By: Latonia Burks on 05-13-2021 Atrial Mvws89UPKWehyiMismi Phone: p Bobd32pzeuflfRpekw Health Work Phone: p-R Ppiwcghp029 [facility] Work Phone: Q-T Hswwgurp259 [facility] Work Phone: QRS Watylqal576 [employer] Work Phone: QTc Calculation (Bazett)532 [facility] bio Work Phone: r Zmeo95kdujjcrDsfgh Health Work Phone: T Jjst304rfpmipyWbkjl Health Work Phone: Ventricular Xooa23TBPKhlau Health Work Phone: sinus rhythm with Premature atrial complexes Left bundle branch block Abnormal ECG No previous ECGs available [facility] CenterBeLocal Phone: eefren, [facility] Incoming Ekg Results From [employer] - 05/13/2021 1:30 PM EDT Sinus rhythm with Premature atrial complexes Left bundle branch block Abnormal ECG No previous ECGs availableUniversity Hospitals Geauga Medical CenterLocal Magnet Phone: [facility] Medical CenterLocal Magnet Phone: basic Metabolic Panel w/ Reflex to MGOrdered By: Latonia Burks on 27-88-3581Mpndq gap [Moles/Vol]13 mmol/L9 - 17 mmol/LMercy Everpix Work Phone: calcium [Mass/Vol]9.4 mg/dL8.6 - 10.4 mg/dLUniversity Hospitals Geauga Medical CenterLocal Magnet Phone: chloride [Moles/Vol]102 mmol/L98 - 107 mmol/LMercy Transactis Phone: cO2 [Moles/Vol]28 mmol/L20 - 31 mmol/LMpremier health atrium medical center Transactis Phone: creatinine [Mass/Vol]0.94 mg/dLHigh0.50 - 0.90 mg/dL [facility] CenterBeLocal Phone: GFR >60>60 mL/minUniversity Hospitals Geauga Medical CenterLocal Magnet Phone: GFR Non- Iyrkdhjd39 mL/minLow>60[facility] Medical CenterLocal Magnet Phone: GFR/1.73 sq M.predicted MDRD (S/P/Bld) [Vol rate/Area] [facility] CenterBeLocal Phone: comment on above:Average GFR for 70 or more years old: 75 mL/min/1.73sq m Chronic Kidney Disease: <60 mL/min/1.73sq m Kidney failure: <15 mL/min/1.73sq m eGFR calculated using average adult body mass. Additional eGFR calculator available at: http://www.[employer]/multiple_crcl_2012.htm GFR/1.73 sq M.predicted MDRD (S/P/Bld) [Vol rate/Area]NOT REPORTEDUniversity Hospitals Geauga Medical CenterLocal Magnet Phone: Glucose [Mass/Vol]119 mg/mLCrqu44 - 99 mg/dLUniversity Hospitals Geauga Medical CenterLocal Magnet Phone: Interpretation and review of laboratory results AbnormalUniversity Hospitals Geauga Medical CenterLocal Magnet Phone: potassium [Moles/Vol]4.0 mmol/L3.7 - 5.3 mmol/LMpremier health atrium medical center Transactis Phone: sodium [Moles/Vol]143 mmol/L135 - 144 mmol/LMpremier health atrium medical center Transactis Phone: Urea nitrogen (BldV) [Mass/Vol]18 mg/dL8 - 23 mg/dL [facility] Transactis Phone: Urea nitrogen/Creatinine (Bld) [Mass ratio]NOT REPORTEDMerLocal Magnet Phone: [facility] Geaug[facility] Medical CenterProtalex Work Phone: cBC auto differentialOrdered By: Latonia Burks on 06-17-9066Rsncwazq Eos #0.26[facility] Medical CenterLocal Magnet Phone: absolute Immature Granulocyte0.04[facility] Medical CenterLocal Magnet Phone: absolute Lymph #3.26[facility] Medical CenterLocal Magnet Phone: absolute [place] #0.84[facility] Medical CenterLocal Magnet Phone: basophils (Bld) [#/Vol]0.05 10*3/uLMerLocal Magnet Phone: basophils/100 WBC (Bld)1 %0 - 2 %[employer] Phone: differential TypeNOT REPORTEDUniversity Hospitals Geauga Medical CenterLocal Magnet Phone: eosinophils/100 WBC (Bld)3 %1 - 4 %[employer] Phone: Hematocrit (Bld) [Volume fraction]36.9 %36.3 - 47.1 % [employer] Phone: Hemoglobin.gastrointestinal spec 1 Ql (Stl)11.2 g/dL Low11.9 - 15.1 g/dLUniversity Hospitals Geauga Medical CenterLocal Magnet Phone: Immature granulocytes/100 WBC (Bld)0 %0[facility] Ge[facility] Medical CenterLocal Magnet Phone: Interpretation and review of laboratory results AbnormalUniversity Hospitals Geauga Medical CenterLocal Magnet Phone: lymphocytes/100 WBC (Bld)32 %24 - 43 %[employer] Phone: MCH (RBC) [Entitic mass]28.3 pg25.2 - 33.5 pgUniversity Hospitals Geauga Medical CenterLocal Magnet Phone: MCHC (RBC) [Mass/Vol]30.4 g/dL28.4 - 34.8 g/dLUniversity Hospitals Geauga Medical CenterLocal Magnet Phone: [phone] (RBC) [Entitic vol]93.2 fL82.6 - 102.9 fLGeliyoo Phone: [phone]/100 WBC (Bld)8 %3 - 12 %[employer] Phone: NRBC Automated0.00.0 per 100 WBCUniversity Hospitals Geauga Medical CenterLocal Magnet Phone: [phone] distribution width (Bld) [Ratio]13.8 %11.8 - 14.4 %[employer] Phone: [phone] EstimateNOT REPORTEDGeliyoo Phone: Platelet mean volume (Bld) [Entitic vol]9.5 fL8.1 - 13.5 fLGeliyoo Phone: [phone] (Bld) [#/Vol]310 10*3/[employer] Phone: [phone] (Bld) [#/Vol]3.96 10*6/uL3.95 - 5.11 m/[employer] Phone: [phone] (Bld) [#/Vol]NOT REPORTEDGeliyoo Phone: Segmented neutrophils/100 WBC (Bld)56 %36 - 65 %[employer] Phone: [phone] Absolute5.70[facility] Medical CenterLocal Magnet Phone: [phone] (Bld) [#/Vol]10.2 10*3/[employer] Phone: WBC (Bld) [#/Vol]NOT REPORTEDUniversity Hospitals Geauga Medical CenterLocal Magnet Phone: [phone] Geaug[facility] Medical CenterLocal Magnet Phone: XR CHEST (2 VW)Ordered By: Latonia Burks on 05-12-2021 Senescent changes compatible with the age of the patient. No evidence of acute cardiopulmonary process.[employer] Phone: eXAMINATION: TWO XRAY VIEWS OF THE CHEST 05/12/2021 1:20 pm COMPARISON: None. HISTORY: ORDERING SYSTEM PROVIDED HISTORY: Pre-op chest exam TECHNOLOGIST PROVIDED HISTORY: Reason for Exam: no chest complaints FINDINGS: The heart is within upper limits of normal for size. Suggestion of possible coronaryartery graft over the right side of the heart. The aorta is mostly midline and contains some calcification. No evidence of pneumothorax, pleural effusion, infiltrate, or abnormal lung mass. There is minimal apical pleural thickening. There is flattening of the hemidiaphragms. Degenerative changes are present in the spine and visualized portions of the shoulders.[employer] Phone: edi, [facility] Incoming Radiant Results From Mieple/[employer] App - 05/12/2021 2:48 PM EDT EXAMINATION: TWO [...] patient. No evidence of acute cardiopulmonary process. G[employer]oo Phone: [facility] Medical CenterLocal Magnet Phone: cardiovascular Lab Reporton [id number] Lab ReportUnChildren's Hospital of Columbus Patient Name: Harsha [facility] Berna MR #: [id number] Department of Physician: Bertram Keyes M.D. Division of Service Date: 08/20/2020 Cardiology Birthdate: 1940 Adult Cardiovascular Room #: [place] [address] Cardiovascular Laboratory Report INDICATION: The patient is [...] signed informed consent. She was brought to general production laborer in a fasting state. The procedure was performed under conscious sedation. A transesophageal echocardiogram was performed by Dr. Marisol Khoury at baseline. Please refer to his dictation for details. The appendage measured a maximum of 16 mm in terms of ostial width. Using ultrasound guidance and micropuncture technique, access was obtained in the right common femoral vein and a 6-Welsh x 11 cm sheath was placed preclosure where the 6-Welsh ProGlide device was performed followed by advancement [...] was exchanged over that wire to the 14-Welsh Watchman access sheath, which was advanced to the left atrial cavity with no issues. The 6-Welsh angled pigtail catheter was advanced over the [...] when it is available. Electronically Signed by: Bertram Keyes M.D. 08/28/2020 01:48 P Bertram Keyes M.D. Date Dict: 08/20/2020/01:26 P/Bertram Keyes M.D. Date Trans: (more content not included)...NormalSelect Medical Specialty Hospital - YoungstownTYPE AND CROSSMATCHon 39-88-1394SJY [facility] - WestComment on above:Performed By: #### [id number] #### [facility] [address] [place] [address], [facility] HOSPITALRH INTERPRETATIONPosKettering HealthComment on above:Performed By: #### [id number] #### [facility] [address] [place] [address], [facility] Vital Signs Date TimeVital SignValuePerforming SgmdmppazPimpwehu00-79-1042 13:58-0400Body .4 cmNicholas Brown DPM Work Phone: [phone]10-23-2025 13:58-0400Body mass index (BMI) [Ratio]28.32 kg/j7Rvlljidc Brown DPM Work Phone: [phone] [place], [place] 1070110-23-2025 13:58-0400Body xmapdb68.77 kgNicholas Brown DPM Work Phone: [phone] [place], [place] 1070110-23-2025 13:58-0400Respiratory rate16 /minNicholas Brown DPM Work Phone: [phone] [place], [place] [address]Riklwnijbv62-84-9431 14:36-0400Body xnbywg179.4 cmNicholas Brown DPM Work Phone: [phone] [place], [place] [address]Abmgaavtlh83-55-3904 14:36-0400Body mass index (BMI) [Ratio]28.32 kg/s1Qmpecqxm Brown DPM Work Phone: [phone]03-13-2025 14:36-0400Body aksfxc90.77 kgNicholas Brown DPM Work Phone: [phone] [place], [place] [address]Frlhobexgc43-61-7010 14:36-0400Respiratory rate16 /minNicholas Brown DPM Work Phone: [phone] [place], [place] [address]Vxsvtrthoo15-26-4743 13:02-0500Body iubxsp605.9 cmAdajayme Ashton MD Work Phone: cMer[facility] Health St. Anne HospitalSbolqm07-59-1049 13:02-0500Body mass index (BMI) [Ratio]28.13 kg/v5Yldgrrdarian Ashton MD Work Phone: cMercy Health St. Anne HospitalClihte56-56-4338 13:02-0500Body temperature 97.2 [degF]Vaibhav Ashton MD Work Phone: [phone] [place], [place] 0400501-28-2025 13:02-0500Body mrohzz10.5 kgVaibhav Ashton MD Work Phone: [phone] [place], [place] 0400501-28-2025 13:02-0500Diastolic blood ahzufwqi66 mm[Hg]Vaibhav Ashton MD Work Phone: [phone] [place], [place] 7252301-28-2025 13:02-0500Heart rate75 /min Vaibhav Ashton MD Work Phone: [phone] [place], [place] 0400501-28-2025 13:02-0500Respiratory rate 16 /minVaibhav Ashton MD Work Phone: [phone] [place], [place] 0400501-28-2025 13:02-2574PuV3% (BldA) [Mass fraction]99 %Vaibhav Ashton MD Work Phone: [phone] [place], [place] 0400501-28-2025 13:02-0500Systolic blood ourunlpk359 mm[Hg]Vaibhav Ashton MD Work Phone: cMercy Health St. Anne HospitalLlsrcm39-28-8188 10:01-0500Body qemmez964.4 cmPeyman Hensley DPM Work Phone: [facility] HospitalJkeyqxngop16-84-1247 10:01-0500Body mass index (BMI) [Ratio]28.32 kg/j0SuqxykslPeyman Hensley DPM Work Phone: [facility] HospitalJubvhabcdi77-12-2074 10:01-0500Body anmbuv15.77 kgPeyman Hensley DPM Work Phone: [facility] HospitalHipsvuxpwh02-25-2062 10:01-0500Respiratory rate16 /minPeyman Hensley DPM Work Phone: [facility] HospitalFuffdiedyo23-32-8477 10:14-0400Body cckgaa436.4 cmPeyman Hensley DPM Work Phone: [facility] HospitalObmhiwcbyf89-45-6531 10:14040Body mass index (BMI) [Ratio]28.32 kg/e8UhldofebPeyman Hensley DPM Work Phone: [facility] HospitalSbyynpcfij04-82-9546 10:14040Body dmqvri51.77 kgNicdayana Hensley DPM Work Phone: [facility] HospitalHxtlizjaaw62-13-3686 10:140400Respiratory rate18 /minNicdayana Hensley DPM Work Phone: [facility] HospitalZaozbjhhae26-24-1065 10:18040Body yorngt330.86 cm Mateus Hoy Work Phone: [phone] [place], [place] 5604308-21-2024 10:18-0400 Body mass index (BMI) [Ratio]30.2 kg/m2MD Mateus Hoy Work Phone: [phone] [place], [place] 5604308-21-2024 10:18-0400 Body qznkipqofjy92.8 [degF]MD Mateus Perry Work Phone: [phone] [place], [place] 5604308-21-2024 10:18-0400 Body ggiobv12.03 kgMD Mateus Hoy Work Phone: [phone]08-21-2024 10:18-0400 Diastolic blood ececqwjo50 mm[Hg]MD Mateus Perry Work Phone: [phone] [place], [place] 5604308-21-2024 10:18-0400 Heart rate80 /minMD Mateus Hoy Work Phone: [phone] [place], [place] 5604308-21-2024 10:18-0400 Respiratory rate16 /minMD Mateus Hoy Work Phone: [phone] [place], [place] 5604308-21-2024 10:18-0400 SaO2% (BldA) [Mass fraction]98 %MD Mateus Perry Work Phone: [phone] [place], [place] 5604308-21-2024 10:18-0400 Systolic blood daqgejvo321 mm[Hg]MD Mateus Perry Work Phone: [phone]08-14-2024 11:13-0400 Body zjojoy458.86 cmMD Mateus Hoy Work Phone: [phone] [place], [place] 1606308-14-2024 11:13-0400 Body mass index (BMI) [Ratio]36.3 kg/m2MD Mateus Hoy Work Phone: [phone] [place], [place] 1606308-14-2024 11:13-0400 Body igmpxk62.64 kgMD Mateus Hoy Work Phone: [phone] [place], [place] 1606308-14-2024 11:06-0400 Body bqapclpqqgo54.8 [degF]MD Mateus Perry Work Phone: [phone] [place], [place] 1606308-14-2024 11:06-0400 Diastolic blood uhzwnbbr47 mm[Hg]MD Mateus Perry Work Phone: [phone] [place], [place] 1606308-14-2024 11:06-0400 Heart rate97 /minMD Mateus Hoy Work Phone: [phone] [place], [place] 1606308-14-2024 11:06-0400 Respiratory rate20 /minMD Mateus Hoy Work Phone: [phone] [place], [place] 1606308-14-2024 11:06-0400 Systolic blood jcqkybxx927 mm[Hg]MD Mateus Perry Work Phone: [phone] [place], [place] 1606307-31-2024 10:30-0400 Body banlyv306.86 cmMD Mateus Hoy Work Phone: [phone])[address] [place], [place] 1606307-31-2024 10:30-0400 Body mass index (BMI) [Ratio]36.3 kg/m2MD Mateus Hoy Work Phone: [phone])[address] [place], [place] 1606307-31-2024 10:30-0400 Body eenuth27.64 kgMD Mateus Hoy Work Phone: [phone])[address] [place], [place] 1606307-16-2024 09:51-0400 Body dpcajz122.86 cmMD Mateus Hoy Work Phone: [phone] [place], [place] 5604307-16-2024 09:51-0400 Body mass index (BMI) [Ratio]36.3 kg/m2MD Mateus Maciely Work Phone: [phone]07-16-2024 09:51-0400 Body cydine37.64 kgMD Mateus Perry Work Phone: [phone]07-16-2024 09:36-0400 Body ignqowmzkhg65.3 [degF]MD Mateus Perry Work Phone: [phone]07-16-2024 09:36-0400 Diastolic blood xzfbpkpa83 mm[Hg]MD Mateus Perry Work Phone: [phone])[address] [place], [place] 1606307-16-2024 09:36-0400 Heart rate86 /minMD Mateus Perry Work Phone: [phone] [place], [place] 1606307-16-2024 09:36-0400 Respiratory rate18 /minMD Mateus Perry Work Phone: [phone] [place], [place] 1606307-16-2024 09:36-0400 Systolic blood rfqnmdei784 mm[Hg]MD Mateus Perry Work Phone: [phone]10-10-2023 15:29-0400 Body .9 cmMindy Kaleigh PA-C Work Phone: [facility]10-10-2023 15:29-0400Body temperature 97.39 [degF]Winnie Kaleigh PA-C Work Phone: [facility]10-10-2023 15:29-0400Body cpvluy31.64 kgMindy Kaleigh PA-C Work Phone: [facility]10-10-2023 15:29-0400Diastolic blood kkfvrafq05 mm[Hg]Winnie Kaleigh PA-C Work Phone: [facility]10-10-2023 15:29-0400Heart rate72 /min Winnie Kaleigh PA-C Work Phone: [facility]5 Evukhp45-60-9560 15:29-0400Respiratory rate 16 /minWinnie Farris PA-C Work Phone: [facility]10-10-2023 15:29-4701MrD5% (BldA) [Mass fraction]96 %Winnie Farris PA-C Work Phone: [facility]10-10-2023 15:29-0400Systolic blood mm[Hg]Winnie Farris PA-C Work Phone: [facility] Brzemc41-82-9402 08:45-0400Body wuqtrd133.94 cmMamaximo Gonzales Other [employer] Other 09-21-2023 08:45-0400Body mass index (BMI) [Ratio] 34.57 kg/p5LbaicvjChristiano Gonzales Other [employer] Other 09-21-2023 08:45-0400Body praezrhhydr02.8 [degF] Christiano Gonzales Other [employer] Other 09-21-2023 08:45-0400Body yhlmqr68.01 kgMattmonty Gonzales Other [employer] Other 09-21-2023 08:45-0400Diastolic blood vworayhy86 mm[Hg] Christiano Gonzales Other [employer] Other 09-21-2023 08:45-8941DaT3% (BldA) [Mass fraction]93 % Christiano Gonzales Other [employer] Other 09-21-2023 08:45-0400Systolic blood rmyygxwc687 mm[Hg] Christiano Gonzales Other [place] [employer] Other 06-29-2023 08:45-0400Body wobokx285.94 cmRoyervinod Emeterio Other [place] [employer] Other 06-29-2023 08:45-0400Body mass index (BMI) [Ratio] 34.57 kg/b7Mzfzrf [employer] Other [place] [employer] Other 06-29-2023 08:45-0400Body osvnypdjuvc12.8 [degF]Millie Storm Other [place] [employer] Other 06-29-2023 08:45-0400Body .01 kgRoyervinod Emeterio Other [place] [employer] Other 06-29-2023 08:45-0400Diastolic blood rossokyd70 mm[Hg] Millie Storm Other [place] [employer] Other 06-29-2023 08:45-9566SkI0% (BldA) [Mass fraction]97 % Millie Storm Other [place] [employer] Other 06-29-2023 08:45-0400Systolic blood urxdvdop632 mm[Hg] Millie Storm Other [place] [employer] Other 06-06-2023 10:19-0400Body ujyzwg056.9 cmWallace Stone MD Work Phone: [facility]06-06-2023 10:19-0400Body temperature 97.39 [degF]Wallace Stone MD Work Phone: [facility]06-06-2023 10:19-0400Body .46 kgWallace Stone MD Work Phone: [facility]06-06-2023 10:19-0400Diastolic blood rlcuqhka51 mm[Hg]Wallace Stone MD Work Phone: [facility]06-06-2023 10:190400Heart nnui599 /Kieran Stone MD Work Phone: [facility]06-06-2023 10:19-0400Respiratory rate 16 /Kieran Stone MD Work Phone: [facility]06-06-2023 10:190136DeT5% (BldA) [Mass fraction]95 %Wallace Stone MD Work Phone: [facility]06-06-2023 10:190400Systolic blood evbzuarm988 mm[Hg]Wallace Stone MD Work Phone: [facility]03-29-2023 14:00-0400Body upggip311.94 cmMillie Storm Other [employer] [facility] [employer] Other 03-29-2023 14:00-0400Body mass index (BMI) [Ratio] 35.71 kg/w2MrqekrMillie Storm Other [employer] Other 03-29-2023 14:00-0400Body epqvmjhount41.6 [degF]Millie Storm Other [employer] Other 03-29-2023 14:00-0400Body .73 kgMillie Storm Other [employer] Other 03-29-2023 14:00-0400Diastolic blood ldujghep05 mm[Hg] Millie Storm Other [place] [employer] Other 03-29-2023 14:00-8225WiH4% (BldA) [Mass fraction]93 % Millie Storm Other [place] [employer] Other 03-29-2023 14:00-0400Systolic blood zzpgqrey911 mm[Hg] Millie Storm Other [place] [employer] Other 03-21-2023 11:53-0400Diastolic blood ujcctwbe88 mm[Hg] MD Mateus Perry Work Phone: 6(604)422-[address] [place], [place] 5604303-21-2023 11:53-0400 Heart rate67 /minMD Mateus Hoy Work Phone: 1(247)369-[address] [place], [place] 5604303-21-2023 11:53-0400 Respiratory rate16 /minMD Mateus Perry Work Phone: 1(749)698-[address] [place], [place] 5604303-21-2023 11:53-0400 SaO2% (BldA) [Mass fraction]94 %MD Mateus Perry Work Phone: 3(879)211-[address] [place], [place] 5604303-21-2023 11:53-0400 Systolic blood mm[Hg]MD Mateus Perry Work Phone: 2(419)445-[address] [place], [place] 5604303-21-2023 09:13-0400 Body uzmgdt859.94 cmMD Mateus Perry Work Phone: 0(683)468-[address] [place], [place] 5604303-21-2023 09:13-0400 Body .64 kgMD Mateus Homodesta Work Phone: 0(673)318-[address] [place], [place] 5604303-15-2023 11:00-0400 Body .94 cmChristiano Gonzales Other [place] [employer] Other 03-15-2023 11:00-0400Body ckiubxxyizl04.8 [degF] Christiano Gonzales Other [facility] Other 03-15-2023 11:00-0400Diastolic blood rhbwdmoj29 mm[Hg] Christiano Gonzales Other [facility] [employer] Other 03-15-2023 11:00-2823XvO6% (BldA) [Mass fraction]96 % Christiano Gonzales Other [place] [employer] Other 03-15-2023 11:00-0400Systolic blood yyhepjjy254 mm[Hg] Christiano Gonzales Other [place] [employer] Other 03-01-2023 13:44-0500Body .9 cmWallace Stone MD Work Phone: [facility]03-01-2023 13:44-0500Body temperature 97.11 [degF]Wallace Stone MD Work Phone: [facility]03-01-2023 13:44-0500Body jsbgox69.73 kgWallace Stone MD Work Phone: [facility]03-01-2023 13:44-0500Diastolic blood mm[Hg]Wallace Stone MD Work Phone: [facility]03-01-2023 13:44-0500Heart rate66 /min Wallace Stone MD Work Phone: [place] [address]-01-2023 13:44-0500Respiratory rate 18 /minWallace Stone MD Work Phone: [place] [address]-01-2023 13:44-2745DdA8% (BldA) [Mass fraction]100 %Wallace Stone MD Work Phone: [place] [address]-01-2023 13:44-0500Systolic blood mm[Hg]Wallace Stone MD Work Phone: [facility]01-12-2023 11:24-0500Body .9 cmWallace Stone MD Work Phone: [facility]01-12-2023 11:24-0500Body temperature 97.81 [degF]Wallace Stone MD Work Phone: [facility]01-12-2023 11:24-0500Body yohtpt67.82 kgWallace Stone MD Work Phone: [facility]01-12-2023 11:24-0500Diastolic blood lbcodlxk41 mm[Hg]Wallace Stone MD Work Phone: [facility]01-12-2023 11:24-0500Heart rate70 /min Wallace Stone MD Work Phone: [facility]01-12-2023 11:24-0500Respiratory rate 16 /minWallace Stone MD Work Phone: [facility]01-12-2023 11:24-2777GiQ8% (BldA) [Mass fraction]94 %Wallace Stone MD Work Phone: [facility]01-12-2023 11:24-0500Systolic blood raifmhvn497 mm[Hg]Wallace Stone MD Work Phone: [facility]12-30-2022 15:06-0500Blood Pressure LocationMichael NILL [facility]12-30-2022 15:06-0500Diastolic blood dpavmmxw03 mm[Hg]Iliana NILL [facility]12-30-2022 15:06-0500Heart rate 68 /minMichael NILL [facility]12-30-2022 15:06-0500 Respiratory rate16 /minMichael NILL General Surgery Petpbttx24-38-2687 15:06-0500Systolic blood djzchgud865 mm[Hg]Iliana NILL General Surgery Wghifhof09-77-1925 12:00-6805DxQ9% (BldA) [Mass fraction]95 %Emma Plunkett MD Work Phone: [facility]10-18-2022 11:50-0400Body sraghfmdspd46.3 [degF]Emma Plunkett MD Work Phone: [facility]10-18-2022 11:50-0400Diastolic blood fnmjxpib18 mm[Hg]Emma Plunkett MD Work Phone: [facility]10-18-2022 11:50-0400Heart rate69 /Terese Plunkett MD Work Phone: [facility]10-18-2022 11:50-0400 Respiratory rate16 /Terese Plunkett MD Work Phone: [facility]10-18-2022 11:50-0400Systolic blood bdyqdhfa366 mm[Hg]Emma Plunkett MD Work Phone: [facility]10-18-2022 07:36-0400Body urwsqv999.9 Niurka Plunkett MD Work Phone: [facility]10-18-2022 07:36-0400Body mass index (BMI) [Ratio]34.58 kg/q3WnjgqvmyprnEmma Plunkett MD Work Phone: [facility]10-18-2022 07:36-0400Body pdoibf22.01 kgEmma Plunkett MD Work Phone: [facility]04-04-2022 15:45-0400Body xcyhovttjdj96 [degF]Emma Plunkett MD Work Phone: [place] [address]-04-2022 15:45-0400Diastolic blood mm[Hg]Emma Plunkett MD Work Phone: [address] [place], [place] [address]Kiomaw70-94-5694 15:45-0400Heart rate65 /min Emma Plunkett MD Work Phone: 1(904)423-[address] [place] [address]-04-2022 15:45-0400Respiratory rate14 /minChrisjustin Plunkett MD Work Phone: [address] [place], [place] [address]Qolnaj89-05-4641 15:45-0757TuY8% (BldA) [Mass fraction]94 %Emma Plunkett MD Work Phone: [place] [address]-04-2022 15:45-0400Systolic blood klnlmuzr258 mm[Hg]Emma Plunkett MD Work Phone: [place] [address]-04-2022 09:46-0400Body .9 cm Emma Plunkett MD Work Phone: 1(722)721-[address] [place] [address]-04-2022 09:46-0400Body mass index (BMI) [Ratio]36.09 kg/e1KgnbsucumrwEmma Plunkett MD Work Phone: 1(246)330-[address] [place] [address]-04-2022 09:46-0400Body dawhjj95.64 kg Emma Plunkett MD Work Phone: [place] [address]Dthnpv94-71-6902 14:46-0400Body furfby433.[address]03-28-2022 14:46-0400Body mass index (BMI) [Ratio]36.09 kg/m2 [address]03-28-2022 14:46-0400Body izqgrkvznqa04.4 [degF][place] [address]-28-2022 14:46-0400Body odacuf54.[address] [place], [place] [address]Etavpm71-72-8481 14:46-0400Diastolic blood pemoppql46 mm[Hg]Stvz [address] [place], [place] [address]Umcyop76-24-8988 14:46-0400Heart rate62 /minStvz [address] [place], [place] [address]Gixfbi40-84-4073 14:46-0400Respiratory rate20 /minStvz [address] [place], [place] [address]Yiwcjg21-03-5270 14:46-2921UgL3% (BldA) [Mass fraction]97 %[address]03-28-2022 14:46-0400Systolic blood hpnrllil536 mm[Hg]Stvz 2 [facility]Khaldg34-[facility]-0315 10:14-0400Body sijcydoidch81.81 [degF]Kin Abarca MD Work Phone: [facility] [employer] Work Phone: 1(702) 401-302610-05-2021 10:14-0400Diastolic blood vtuorqsj49 mm[Hg] Kin Abarca MD Work Phone: [facility] [employer] Work Phone: 1(545) 756-724310-05-2021 10:14-0400Heart rate61 /Rosalva bAarca MD Work Phone: [facility] [employer] Work Phone: 1(665) 847-693610-05-2021 10:14-0400Respiratory rate14 /Rosalva Abarca MD Work Phone: [facility] [employer] Work Phone: 1(349) 293-251410-05-2021 10:14-2996AwE9% (BldA) [Mass fraction]96 % Kin Abarca MD Work Phone: [facility] Work Phone: 1(615) 933-743010-05-2021 10:14-0400Systolic blood fqcblbog100 mm[Hg] Kin Abarca MD Work Phone: [facility] [employer] Work Phone: 1(558) 967-961310-05-2021 08:24-0400Body nbogpj339.9 Dharmesh Abarca MD Work Phone: [employer] Work Phone: 1(113) 621-424310-05-2021 08:24-0400Body mass index (BMI) [Ratio] 34.96 kg/m2Kin Abarca MD Work Phone: [facility] [employer] Work Phone: 1(623) 358-648910-05-2021 08:24-0400Body .92 kgKin Abarca MD Work Phone: [facility] [employer] Work Phone: 1(603) 136-846309-01-2021 12:53-0400Body olsdei633.9 cmStvz [employer] Work Phone: 1(417) 854-476209-01-2021 12:53-0400Body mass index (BMI) [Ratio] 35.52 kg/m2Stvz [facility] Phone: 1(305) 142-176509-01-2021 12:53-0400Body qqcaxlpdajy20.8 [degF]Stvz 1 [facility] [employer] Work Phone: 1(598) 558-270509-01-2021 12:53-0400Body iwpfbk02.28 kgStvz [facility] Phone: 1(988) 430-999509-01-2021 12:53-0400Diastolic blood bcbxugtu66 mm[Hg] Stvz [facility] Phone: 1(415) 662-177009-01-2021 12:53-0400Heart rate57 /minStvz [facility] Phone: 1(264) 338-955109-01-2021 12:53-0400Respiratory rate18 /minStvz 1 [employer] Phone: 1(745) 278-946709-01-2021 12:53-0418XrU0% (BldA) [Mass fraction]96 % Stvz [facility] Phone: 1(107) 905-665209-01-2021 12:53-0400Systolic blood adqeeaev806 mm[Hg] Stvz [facility] Phone: Encounters Encounter DateEncounter TypeCare ProviderFacilityStart: 07-03-2025 End: 87-27-0284Wfgufz Pavithra Hensley DPM Work Phone: noMS CI PODIATRYStart: 07-03-2025 End: 79-61-6825Lvlbac Pavithra Joanie Judson DPM Work Phone: noms CI PODIATRYStart: 07-03-2025 End: 07-11-7430Xksqzd outpatient visit 10 minutesNicdayana Hensley DPM Work Phone: noMS CI PODIATRYComment on above:Neoplasm of uncertain behavior of skin (Primary Dx); Diabetes mellitus due to underlying condition with diabetic polyneuropathy, 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 correction insulin use (HCC); Pain due to onychomycosis of toenails of both feet; Venous insufficiency; Acquired deformity of left toeStart: 20-26-9532epjkuakppsNJYFT GRUBBUniMercy Health Lorain Hospitaltart: 06-03-2025 End: 04-20-4210Iwbkxkf encounter procedureChristiano Mcdonnell MD-Lab [address] Work Phone: Start: 06-03-2025 End: 17-51-9612golikgtetcPyjgcql M Hoy MD Work Phone: [facility] Work Phone: Start: 98-51-9386iwvnsdwrayDRPVE GRUBBURiverside Methodist Hospitaltart: 03-04-2025 End: 89-69-4858nirknmgzcnVewcbsi MorrowFacility:[facility] Centertart: 97-58-3507sljkxaueraLEXRWayne HealthCare [facility] Start: 01-30-2025 End: 79-13-4723fiktkrzcarQXIUTREO A BROWNNot AvailableStart: 01-21-2025 End: 27-07-3370jtjynwzvspWJPWTrinity Health Systemtart: 32-23-0141iupgnjaevjUNXKTrinity Health Systemtart: 01-07-2025 End: 28-44-3691Xzciujy encounter procedureMateus Perry MD Work Phone: [facility]-XRay [address] Work Phone: Start: 01-07-2025 End: 96-72-0739mftdfmliluNwhazqa M Hoy MD Work Phone: [facility] Work Phone: Start: 95-27-7427jmspawqtltINGXMercy Health Perrysburg Hospitaltart: 63-76-6747Xvxbsdcag for preprocedural cardiovascular examinationTrinity Health Systemtart: 12-10-2024 End: 53-96-9695Ciblmqc encounter Hardik Perry MD Work Phone: [facility]-Lab [address] Work Phone: Start: 12-10-2024 End: 32-12-0915knewwrufqcUumdjnm M Hoy MD Work Phone: [facility] Work Phone: Start: 11-21-2024 End: 15-11-2116Lqorcn outpatient visit 15 minutesPeyman Hensley DPM Work Phone: noms CI PODIATRYComment on above:Neoplasm of uncertain behavior of skin (Primary Dx); Diabetes mellitus due to underlying condition with diabetic polyneuropathy, 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 correction insulin use ([facility]); Pain due to onychomycosis of toenails of both feet; Venous insufficiency; 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 ([facility])Start: 11-21-2024 End: 22-60-7616phabyzsznnBNGFCNHM A BROWNNot AvailableStart: 11-21-2024 End: 54-47-9294Tifqio flowsheetPeyman Hensley DPM Work Phone: noms CI PODIATRYStart: 11-21-2024 End: 51-58-3123Wowxhz flowsheetPeyman Hensley DPM Work Phone: noms CI PODIATRYStart: 06-12-4044lvvbjfekgwKSJZKettering Health – Soin Medical Centertart: 27-86-3700gfnnndfniaNXIIKettering Health – Soin Medical Centertart: 11-05-2024 End: 68-47-6863bdbedyegqeKEXITrinity Health Systemtart: 10-29-2024 End: 35-01-0900Wcjxvnr encounter Hardik Perry MD Work Phone: [facility]-Lab [address] Work Phone: Start: 10-29-2024 End: 83-27-0299cgiazzmfmvPviluoc M Hoy MD Work Phone: [facility] Work Phone: Start: 00-13-5656fpcglzzkpsRWOUHenry County Hospitaltart: 10-09-2024 End: 42-32-6529Nkjhcidop encounterAdajayme Ashton MD Work Phone: Hematology/OncologyStart: 10-08-2024 End: 10-47-3325Rpbjbf outpatient visit 25 minutesAdarsdarian Ashton MD Work Phone: Hematology/OncologyComment on above: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, estrogen receptor positive (HCC) (Primary Dx); Stage 3a chronic kidney disease (HCC)Start: 10-08-2024 End: 49-75-3979sjznbkrxcpXLFEXIQ M HOYFacility:OhioHealthtart: 10-04-2024 End: 40-29-9832Kyxerleaj encounterFemarybeth Sandoval RNHematology/OncologyComment on above:Patient Question; Appointment; OrdersStart: 09-24-2024 End: 22-79-9816hlzszralhwRWIVHenry County Hospitaltart: 81-68-5609kficibllmkYBNZTrinity Health Systemtart: 57-54-8376zqgyykrxqpHKEJTrinity Health Systemtart: 91-11-8992vqqxcobilmQQCG [facility] Hospitaltart: 98-62-5757Ueb-patient / Non-visitMateus Perry MD Work Phone: [facility] Work Phone: Start: 39-77-0849seexahexblTRJK [facility] Hospitaltart: 08-29-2024 End: 58-69-9622Lrqbiw flowsMadeleine Hensley DPM Work Phone: noMS CI PODIATRYStart: 08-29-2024 End: 26-51-2588Xvqqpm Pavithra Hensley DPM Work Phone: noms CI PODIATRYStart: 08-29-2024 End: 88-65-7463Slshda outpatient visit 15 minutesNicdayana Hensley DPM Work Phone: noms CI PODIATRYComment on above: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) (Primary Dx); Diabetes mellitus due to underlying condition with diabetic polyneuropathy, 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 correction insulin use (CMS/HCC); Pain due to onychomycosis of toenails of both feet; Venous insufficiency; Neoplasm of uncertain behavior of skinStart: 08-29-2024 End: 05-43-1445mcztjiekmvFQJOSRNV A BROWNNot AvailableStart: 08-27-2024 End: 84-62-3827fxhnrbslfiPHUU [facility] Hospitaltart: 40-23-4745gtvbssmevlFEOI [facility] Hospitaltart: 08-12-2024 End: 33-47-5859nkpddhstlgBPVU [facility] Hospitaltart: 07-17-2024 End: 82-30-5342ueacrypuarQJWMO KHOURYMcCullough-Hyde Memorial Hospitaltart: 79-94-1015dsfmofracoNOII [facility] Hospitaltart: 07-10-2024 End: 54-58-5629leotftzsanGSZM [facility] Hospitaltart: 07-02-2024 End: 22-25-1377wxrhyatqujNLFO [facility] Hospitaltart: 06-20-2024 End: 55-72-2184Prscci Pavithra Hensley DPM Work Phone: noms CI PODIATRYStart: 06-20-2024 End: 34-78-0486Mrirgi flowsMadeleine Hensley DPM Work Phone: noms CI PODIATRYStart: 06-20-2024 End: 28-88-7109hgknwsnflbATLCATEG A BROWNNot AvailableStart: 06-20-2024 End: 37-75-6275Akncwd outpatient new 30 minutesNicdayana Hensley DPM Work Phone: noms CI PODIATRYComment on above:Hav (hallux abducto valgus), left (Primary Dx); Venous insufficiency; Acquired deformity of left toe; 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); Diabetes mellitus due to underlying condition with diabetic polyneuropathy, 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 operations supervisor insulin 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 (CMS/HCC); Pain due to onychomycosis of toenails of both feetStart: 05-01-2024 End: 29-87-1427dpfjwjaksqYY Mateus M Hoy Work Phone: [facility] Work Phone: Start: 05-01-2024 End: 56-32-9696Csmbacp encounter procedureMD Mateus Hoy Work Phone: [facility] Work Phone: Start: 04-24-2024 End: 17-75-6319mwafjjnkgyIL Mateus M Hoy Work Phone: [facility] Work Phone: Start: 04-24-2024 End: 10-52-9121Mafcgdtcva RecurringMD Mateus Hoy Work Phone: [facility]-Wound Care Tram Work Phone: Start: 04-09-2024 End: 79-72-1654rrptsuflezBU Mateus Perry Work Phone: [facility] Work Phone: Start: 04-09-2024 End: 61-68-4882Wraolec encounter procedureMD Mateus Perry Work Phone: [facility]-Ultrasound [place] Work Phone: Start: 14-78-5124Qmjojdsvkl RecurringMD Mateus Perry Work Phone: [facility]-Wound Care [place] Work Phone: Start: 06-20-2023 End: 37-20-5853iwrkvxnjnwKhjwg M Musser PA-C Work Phone: Hematology/OncologyComment on above: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, estrogen receptor positive (HCC) (Primary Dx); Stage 3a chronic kidney disease (HCC)Start: 06-20-2023 End: 54-51-6808Cftxvvt encounter procedureWinnie Farris PA-C Work Phone: SANDUSKYStart: 06-01-2023 End: 80-56-8372kpgwqppmayHglhbrz [place] Other [employer] Other Start: 97-29-7371Wkvmzn outpatient visit 15 minutes Christiano Linares Vascular SurgeryStart: 04-06-2023 End: 38-24-9498sxcilvxvrqYXFFWMH M HOYMKaiser Fremont Medical Centertart: 03-09-2023 End: 78-52-4109hpucnnrwihBgeuyg Ruttino Other [employer] Other Start: 34-67-7115Vvfczsy encounter Cristhian Wang Vascular SurgeryStart: 03-06-2023 End: 41-46-4439fuoiyivwiiSSGHXQAXYYM LUTMAN [facility] Start: 02-14-2023 End: 76-37-4923bllqfejbdgXsnbb Karamlou MD Work Phone: Hematology/OncologyComment on above: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, estrogen receptor positive (HCC) (Primary Dx); Rash; Other eczema; Stage 3a chronic kidney disease (HCC)Start: 02-14-2023 End: 52-67-9302Znwcmla encounter procedureWallace Stone MD Work Phone: SANDUSKYStart: 01-19-2023 End: 74-61-4373iejebrvhgzTS MATEUS PERRY .Facility:I4Ugorw: 12-08-2022 End: 25-63-2206gvhusziqqlVytzol [employer] Other [employer] Other Start: 96-06-6983Ykqvnslzq encounterJackie RuttinoFPG Vascular SurgeryStart: 12-07-2022 End: 01-06-1845sqaogswxviSqjvcu [employer] Other [employer] Other Start: 90-78-4334Fbzwnea encounter procedureJackie RuttinoFPG Vascular SurgeryStart: 11-29-2022 End: 99-08-5696Yijdqqbpn to same day surgery centerMD Mateus Perry Work Phone: [facility]-Interventional Radiology Work Phone: Start: 11-29-2022 End: 11-48-2436wdbntvhyhuTJ Douglas M Hoy Work Phone: [facility] Work Phone: Start: 11-24-2022 End: 44-17-4705ofgkmkvhmkUYBPMJSelect Medical Specialty Hospital - Akrontart: 11-24-2022 End: 27-27-6019Ziikvprvqk hospital visit by Joelle Perry MD Work Phone: [facility] LAB DOCTORStart: 11-23-2022 End: 95-21-8984bnwzzbutncFknbwgw [place] Other [place] [employer] Other Start: 63-49-5416Rupjxy outpatient new 60 minutes Christiano SoG Vascular SurgeryStart: 11-22-2022 End: 95-79-9317virmuqrrdcNcmyybx R NILLFacility: ChavaueStart: 11-16-2022 End: 51-90-6338luykranrarUO MATEUS PERRY .Facility:E1Vtnoe: 11-09-2022 End: 26-86-5095qzhpbybwgpMpskxDeyvi Stone MD Work Phone: Hematology/OncologyComment on above: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, estrogen receptor positive (HCC) (Primary Dx); Claudication in peripheral vascular disease (HCC)Start: 11-09-2022 End: 30-64-2954Ddtqpdf encounter procedureWallace Stone MD Work Phone: SANDUSKYStart: 40-16-7671Tmvonpuam encounterWallace Stone MD Work Phone: Cancer Appts MCComment on above:Referral Information (Vascular Consult)Start: 11-08-2022 End: 21-92-9464tycefwmsfoBpysruz R NILLFacility: tart: 11-08-2022 End: 87-29-4175Dnngmre encounter procedureMichael R NILL General Surgery Nill/Said [place] Start: 11-04-2022 End: 17-97-8408ntqdyzahgwTqmcnvw R NILLFacility: SeleneevueStart: 11-04-2022 End: 37-64-4980Alcyfzb encounter procedureMichael R NILL General Surgery [place]ill/Said [place] Start: 11-02-2022 End: 20-59-1429fukitxkqpnCN MATEUS HOY .Facility:J7Ibtvh: 10-25-2022 End: 66-86-8853xjquffjhkqCaoxmgd R NILLFacility:[facility] Campustart: 10-25-2022 End: 52-30-2421Pjbypci encounter procedureMichael R NILL General Surgery Nill/Said [place] Start: 10-19-2022 End: 23-37-1029mzsuyvgthnRE ILIANA NILL .Facility:Y4Afnbr: 14-79-7466lbdlhbaqfr DR ILIANA GAGNON .Facility:Q0Anhyk: 89-03-2995Jhrhvksef for preprocedural laboratory examinationDR ILIANA GAGNON .[facility]tart: 10-11-2022 End: 72-75-6077jlzsufuxbrTF ILIANA GAGNON .Facility:Z6Ogvxs: 10-11-2022 End: 64-96-8006Rdwchznsi for preprocedural laboratory examinationDR ILIANA GAGNON .Facility:T2Bwiix: 09-30-2022 End: 61-75-1737soyzqpnsnjUG MATEUS PERRY .Facility:E9Yradb: 77-22-7743Wrweqoeku encounterHeavenly Wilkerson RN Work Phone: Hematology/OncologyComment on above:Care Coordination (Surgery update)Start: 09-22-2022 End: 38-94-0225dekxvbqphjNrmcoDeyvi Stone MD Work Phone: Hematology/OncologyComment on above: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, estrogen receptor positive (HCC) (Primary Dx)Start: 09-22-2022 End: 34-96-0465Knzcxoo encounter Gita Stone MD Work Phone: SANDUSKYComment on above:Malignant neoplasm of upper- outer quadrant of right breast in female, estrogen receptor positive (HCC) (Primary Dx)Start: 09-21-2022 End: 72-47-5510ntszrftcohZG DOUGLAS HOY .Facility:B8Hbdyn: 07-18-2665Zghsv abstractKrishna Stone MD Work Phone: Hematology/OncologyStart: 09-16-2022 End: 52-50-1608fwpabakizzYB DOCTOR MISCFacility:Q9Jqqoj: 09-09-2022 End: 52-95-3690wmnifsggngVubitvf R NILLFacility: [place]vueStart: 09-09-2022 End: 78-53-2477Ffxipxj encounter procedureMichael R NILL General Surgery Nill/Said Lindy Start: 58-64-5726jpkghykgffXF AMTEUS HOY .Facility:H1 Start: 08-23-2022 End: 57-30-2691xtkcvpbbiqRD MATEUS HOY .Facility:Z6Qaxtn: 91-54-3960jqcdlasrim Iliana R NILLFacility: rt: 08-19-2022 End: 04-20-1042ruxwatnjtvFP MATEUS HOY .Facility:G5Jsxjr: 08-14-2022 End: 29-27-7183mqrxvgswuvXI MATEUS HOY .Facility:A5Revez: 08-11-2022 End: 89-29-5462onlvepknskBC MATEUS HOY .Facility:N0Eghil: 08-08-2022 End: 48-91-0896bagfftkgalHZ MATEUS HOY .Facility:A9Mhmnk: 08-02-2022 End: 57-90-1393xjithplpjoXU MATEUS HOY .Facility:C5Avzgl: 07-19-2022 End: 34-36-7204smvajsywjlTP MATEUS HOY .Facility:J4Dmfht: 06-28-2022 End: 01-45-3058Fzfvvphaca hospital visit by Shanti Garza MD Work Phone: stvz ORComment on above:Vaginal dysplasiaStart: 06-22-2022 End: 39-72-7717ytstzdfnjwEFRBRUO TUCKERFacility:F4Lngwx: 93-19-5944mtsdjlsnex SONALI TUCKERFacility:T4Qrtmo: 04-12-2022 End: 46-67-0435mbtamjzlknWCXZYMW TUCKERFacility:Q3Crqab: 03-17-2022 End: 36-94-2079ghfupvocazYK MATEUS PERRY .Facility:I2Ivuem: 03-16-2022 End: 42-55-0131uhfmhdepzkXL MATEUS PERRY .Facility:T4Vsebk: 03-15-2022 End: 66-64-0043rxjkxxoxvqGTLCSMR TUCKERFacility:G9Rmyef: 02-15-2022 End: 14-95-6333dmhyfptqocUCRJEYO TUCKERFacility:D4Nebil: 02-09-2022 End: 95-93-7070rzdejujdncDZYNFJQ TUCKERFacility:D6Jthqh: 12-13-2021 End: 48-71-0250Bwypdiiprj hospital visit by Shanti Garza MD Work Phone: stvz ORComment on above:Post-operative state (Primary Dx)Start: 12-06-2021 End: 07-14-5902Jylxpzmgjr [facility] RadiologyComment on above:ArrivedStart: 12-06-2021 End: 73-68-8612Rfzkxqi encounter statusStvz 2STVZ Pre-Admit TestingStart: 12-06-2021 End: 67-50-1831Rnqcnogpen hospital visit by Brendon Hendrix 2STVZ Pre-Admit TestingComment on above:Pre-op chest examStart: 06-15-2021 End: 12-19-3016Ewugbdmwwq hospital visit by Wallace Abarca MD Work Phone: stvz ORStart: 05-12-2021 End: 68-46-1773Zkqrwgjviq [facility] RadiologyComment on above:ArrivedStart: 05-12-2021 End: 97-27-2951Jrwkxhv encounter statusStvz 1STVZ Pre-Admit TestingStart: 05-12-2021 End: 77-92-7061Spxpwqrxzh hospital visit by Brendon Hendrix 1STVZ Pre-Admit TestingComment on above:Pre-op chest exam Procedures DateProcedureProcedure DetailPerforming ClinicianStart: 55-84-0955U-ray of lumbar spine, two or three viewsMateus Perry MD Work Phone: Start: 75-41-0566Cizqn x-ray of pelvis and lower extremityMateus Perry MD Work Phone: Start: 79-00-1533Q-ray of both knees, two viewsMateus Perry MD Work Phone: Start: 81-93-5394Slalc brachial pressure indexMD Mateus Perry Work Phone: [phone]-art: 22-75-0516Liqxiz scan of lower limb veinsMD Mateus Perry Work Phone: Start: 23-54-8503JhgwabnkrbNE Mateus Perry Work Phone: [phone]-art: 31-12-1341Cydkneyihl of right breastMichael NILL Start: 97-45-8950Dhxtfhb blood reagent stripChwilberto Garza MD Work Phone: Start: 60-13-7929UECEYFC, IONIC (POC)Emma Garza MD Work Phone: Start: 36-30-6312Okocoisu [Moles/volume] in Serum or PlasmaEmma Garza MD Work Phone: Start: 97-99-3972ZXNAECSRYC W/GFR POINT OF CARE Emma Garza MD Work Phone: Start: 38-30-7539Sljc bld gluc mntr dev cleared fda spec home useChwilberto Garza MD Work Phone: Start: 46-99-4259WJFAFV ACID,POINT OF CAREEmma Garza MD Work Phone: Start: 50-08-1622Pjqtienfp [Moles/volume] in Serum or PlasmaEmma Garza MD Work Phone: Start: 03-20-8781Ctmuop [Moles/volume] in Serum or PlasmaSanaristopher Kayla CARDONA Work Phone: Start: 58-26-2887Zzw routine ecg w/least 12 lds w/i&r Jimy Remy MD Work Phone: Start: 29-26-1221Qarr bld gluc mntr dev cleared fda spec home useChrisjustin Garza MD Work Phone: Start: 14-67-2962Thmndvqgz [Moles/volume] in Serum or PlasmaChristopher Kayla CARDONA Work Phone: Start: 37-67-8265Ymfakjti screenStvz 2Start: 71-62-5641Tkcor of magnesiumAlyssa Kimmie PA-C Work Phone: start: 57-98-4433Mutjkmmpcc exam chest 2 viewsAlyssa Kimmie PA-C Work Phone: Start: 54-94-9049Urx routine ecg w/least 12 lds i&r onlyAlyssa Kimmie PA-C Work Phone: Start: 50-13-8017Briao typing serologic aboAlyssa Kimmie PA-C Work Phone: Start: 06-15-2021H/O: surgeryS/p Partial vaginectomy with Ultrasonic Scalpel 06/15/21Kin Abarca MD Work Phone: Start: 50-98-0329Smpjckd blood reagent stripEric Berna Abarca MD Work Phone: Start: 66-94-2820KALDOORNXT W/GFR POINT OF CAREErkatlin Abarca MD Work Phone: Start: 02-71-8402Bfsm bld gluc mntr dev cleared fda spec home useKin Abarca MD Work Phone: Start: 33-58-2831Gidqpridx [Moles/volume] in Serum or PlasmaKin Abarca MD Work Phone: start: 01-56-5225ZLLCQ METABOLIC PANEL W/ REFLEX TO MG FOR LOW KAlyssa Kimmie PA-C Work Phone: Start: 45-21-6392Mrqoz count complete auto&auto difrntl wbcAlyssa Kimmie PA-C Work Phone: Start: 78-42-7020Duhudwswmf exam chest 2 viewsAlyssa Burks PA-C Work Phone: Start: 40-10-9478Bys routine ecg w/least 12 lds i&r onlyAlyssa Kimmie PA-C Work Phone: Start: 97-91-8952Bwkltcaq screenComment on above: Performed By: #### [id number] #### [facility] [address] [place] [address], USAStart: 46-30-7136Wibulqz of placement of stent for coronary artery diseaseS/P coronary artery stent placementWallace Stone MD Work Phone: AppendectomyMichael NILL ColposcopyMichael NILL Cryosurgery of lesion of cervixMichael NILL Insertion of arterial stentMichael NILL Insertion of stent in femoral veinMichael NILL Repair of aneurysmMichael NILL Total hysterectomy via vaginal approachMichael NILL Ultrasonography guided biopsy of right breastMichael NILL Urinary bladder reconstructionMichael NILL Plan of Treatment DateCare ActivityDetailAuthorStart: 07-03-2025 End: 78-18-0105Pdhsvit encounter qjntyzxxi95/23/2025 1:50 PM EDT Office Visit [facility] [address] [place] [phone] Peyman Hensley DPM [address] [address] Diabetes mellitus due to underlying condition with diabetic polyneuropathy, 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 terminal operations supervisor insulin use (HCC) (Primary Dx); Pain due to onychomycosis of toenails of both feet; Venous insufficiency; Acquired deformity of left toe; Neoplasm of uncertain behavior of skinNOMS CI PODIATRYComment on above:Diabetes mellitus due to underlying condition with diabetic polyneuropathy, 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 correction insulin use (HCC) (Primary Dx); Pain due to onychomycosis of toenails of both feet; Venous insufficiency; Acquired deformity of left toe; Neoplasm of uncertain behavior of skinStart: 20-82-7667Evtanzjmc vaccination Influenza Vaccine (#1)[facility] HealthcareStart: 04-08-2025 End: 01-60-0719Eosepw-up kfquaxlym64/29/2025 1:30 PM EDT Visit (SP) Office Hematology/Oncology [address] [place], [place] [phone] Vaibhav Ashton MD [address] [place] [address] [place] [address] 6 month follow upHematology/OncologyComment on above:6 month follow upStart: 04-08-2025 End: 03-25-0340Foyvyit encounter jfeenclbb01/29/2025 1:15 PM EDT Office Visit [facility] [address] [place] [address] labsNortSheridan Community Hospital LaboratoryComment on above:labsStart: 11-21-2024 End: 58-28-3167Frkuwrc encounter ouwpthbli24/13/2025 2:40 PM EDT [facility] [address] [facility] [address] [place] [phone] Peyman Hensley DPM [address] [address] Diabetes mellitus due to underlying condition with diabetic polyneuropathy, 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 terminal operations supervisor insulin use (CMS/HCC) (Primary Dx); Pain due to onychomycosis of toenailsof both feet; Venous insufficiency; Neoplasm of uncertain behavior of skin; 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)[facility] PODIATRYComment on above:Diabetes mellitus due to underlying condition with diabetic polyneuropathy, 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 correction insulin use (CMS/HCC) (Primary Dx); Pain due to onychomycosis of toenails of both feet; Venous insufficiency; Neoplasm of uncertain behavior of skin; 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)Start: 11-07-2024 End: 78-09-7815Wmfzrtb encounter nwkiedwot60/27/2025 10:00 AM EST Office Visit [facility] [address] [facility] [address] [place] [address] Peyman Hensley DPM [address] [facility] 5 [place] [address] [facility]RYStart: 00-83-2742UuegbdnydPremier Health Atrium Medical Centertart: 10-08-2024 End: 54-49-7507Ruzzjkvde (Vitamin B12) [Mass/volume] in Serum or PlasmaClemansfield hospital ClinicComment on above:Expected: 10/08/2024, Expires: 01/07/2025Start: 10-08-2024 End: 87-61-4537Vijxewtz [Mass/volume] in Serum or PlasmaCleveland Clinic [facility] Work Phone: Comment on above:Expected: 10/08/2024, Expires: 01/07/2025Start: 10-08-2024 End: 78-18-2906Puytxw [Mass/volume] in Serum or PlasmaClemansfield hospital ClinicComment on above:Expected: 10/08/2024, Expires: 01/07/2025Start: 10-08-2024 End: 45-86-1239Gnab and Iron binding capacity panel - Serum or PlasmaCleAkron Children's HospitalComment on above:Expected: 10/08/2024, Expires: 01/07/2025Start: 10-08-2024 End: 85-70-0100atjfjkijiq15/28/2025 1:00 PM EST Visit (SP) Office Hematology/Oncology [address] [place] [address] [address] [place], [place] [phone] Vaibhav Ashton MD [address] [place] [address] [place] [address] AAMIR from [facility] wanted to transfer to [place] Hematology/OncologyComment on above:AAMIR from [facility] wanted to transfer to [facility]: 10-08-2024 End: 45-99-7037Hluvrqn encounter jqpqivdvm28/28/2025 12:45 PM EST Office Visit [facility] [address] [place] [address] [place] [address] AAMIR from [facility] wanted to transfer to [facility] LaboratoryComment on above:AAMIR from [facility] pt wanted to transfer to [facility]: 10-04-2024 End: 01-07-6047KGF W Auto Differential panel - BloodCOMPLETE BLOOD COUNT AND DIFFERENTIAL Lab Routine 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, estrogen receptor positive (HCC) Expected: 10/04/2024, Expires: 01/03/2025 [facility] Work Phone: Comment on above:Expected: 10/04/2024, Expires: 01/03/2025Start: 10-04-2024 End: 86-69-4464Edkidvvyczhud metabolic 2000 panel - Serum or PlasmaCOMPREHENSIVE METABOLIC PANEL Lab Routine 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, estrogen receptor positive (HCC) Expected: 10/04/2024, Expires: 01/03/2025leveland ClinicComment on above:Expected: 10/04/2024, Expires: 01/03/2025Start: 87-01-3150Ckybxds Directive DiscussionAdvance Directive DiscussionKettering Memorial Hospitaltart: 08-29-2024 End: 52-21-7497Lwdqloc encounter procedureNOMS CI PODIATRYComment on above: 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) (Primary Dx); Diabetes mellitus due to underlying condition with diabetic polyneuropathy, 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 correction insulin use (CMS/HCC); Pain due to onychomycosis of toenails of both feet; Venous insufficiencyStart: 70-92-2692Lpgexvbigu/HematocritHemoglobin/Hematocrit [facility] Hospitaltart: 12-96-6038Xckvy CreatinineSerum CreatinineKettering Memorial Hospitaltart: 41-72-0539Ipwwo-19 Vaccine ()Covid-19 Vaccine ()[facility] Hospitaltart: 51-74-6243Sozvwenxz vaccinationInfluenza Vaccine (#1)[facility] HospitalStart: 11-16-3370RLQUIHAIDH/HEMATOCRIT HEMOGLOBIN/HEMATOCRITKettering Memorial Hospitaltart: 89-18-0492RYFHN CREATININESERUM CREATININEKettering Memorial Hospitaltart: 06-16-2023 End: 56-80-7135IPJ W Auto Differential panel - BloodCBC + DIFF Lab Routine 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, estrogen receptor pos itive (HCC) Expected: 06/16/2023 (Approximate), Expires: 08/16/2023[facility] Work Phone: Comment on above:Expected: 06/16/2023 (Approximate), Expires: 08/16/2023Start: 06-16-2023 End: 72-76-9705Yestvtlcsnsbt metabolic 2000 panel - Serum or PlasmaCOMP METABOLIC PANEL Lab Routine 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, estrogen receptor positive (HCC) Expected: 06/16/2023 (Approximate), Expires: 08/16/2023[facility] Work Phone: Comment on above:Expected: 06/16/2023 (Approximate), Expires: 08/16/2023Start: 59-76-8233Gkdbd-19 Vaccine ()Covid- 19 Vaccine ()[facility] Hospitaltart: 84-81-0668Sdxalrsdk vaccinationKettering Memorial Hospitaltart: 04-12-2023 End: 22-56-9279Oquzaoa encounter dexdggzvk33/02/2023 Office Visit Gynecologic Oncology Latonia Brush PA-C [address] [place], [place] [id number] [facility] Gynecologic Oncology ServicesStart: 02-09-2023 End: 59-83-6794NXU W Auto Differential panel - BloodCBC + DIFF Lab Routine 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, estrogen receptor pos itive (HCC) Expected: 02/09/2023 (Approximate), Expires: 04/11/2023[facility] Work Phone: Comment on above:Expected: 02/09/2023 (Approximate), Expires: 04/11/2023Start: 02-09-2023 End: 98-03-5294Ezmuhzpfaaklo metabolic 2000 panel - Serum or PlasmaCOMP METABOLIC PANEL Lab Routine 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, estrogen receptor positive (HCC) Expected: 02/09/2023 (Approximate), Expires: 04/11/2023[facility] Work Phone: Comment on above:Expected: 02/09/2023 (Approximate), Expires: 04/11/2023Start: 68-02-8220Lbtvscahx monitoringPotassium monitoring [facility] HospitalStart: 64-81-7409Zaxyllidjw measurementCreatinine monitoringMain Campus Medical Center HealthStart: 64-16-9764Bgieaatuz monitoringPotassium monitoringMain Campus Medical Center Health Start: 11-29-2022 End: 10-17-2204NojcyreolPremier Health Atrium Medical Centertart: 76-72-8497YNLQKAR DIRECTIVE DISCUSSIONADVANCE DIRECTIVE DISCUSSIONKettering Memorial Hospitaltart: 24-22-4436SIIBEFEYAN ASSESSMENTDEPRESSION ASSESSMENTKettering Memorial Hospitaltart: 07-27-2022 End: 70-11-5786Nqlxemf encounter dukgzremt14/16/2022 Office Visit Gynecologic Oncology Emma Garza MD [address] [place] [address] [facility] Gynecologic Oncology Services Start: 06-28-2022 End: 09-74-2622SNBUU VAGINAL CERVIX LESION EXCISION LASERVULVA VAGINAL CERVIX LESION EXCISION LASER Vaginal dysplasia 06/28/2022 9:04 AM [facility]: 39-08-8329Uzxcnbzwje measurementCreatinine monitoring [facility] [employer] Work Phone: start: 92-12-8721Elokpcbze monitoringPotassium monitoringMain Campus Medical Center [employer] Work Phone: start: 90-73-7159Kwxbmrbaro measurementCreatinine monitoringMain Campus Medical Center [employer] Work Phone: start: 79-86-2933Qfzcqdsny vaccinationINFLUENZA (#1) [facility] Hospitaltart: 72-91-0602Ojmppdlfl monitoringPotassium monitoringUniversity Hospitals Geauga Medical CenterProtalex Work Phone: start: 99-36-8399Zfgjjtbyy vaccinationFlu vaccine (#1) [facility] MEDICAL CENTERStart: 01-14-2022 End: 48-83-0889Lvibpgu encounter eumoblvcw69/06/2022 Office Visit Gynecologic Oncology Latonia Burks PA-C [address] [address] [address] [place], [place] [address] [facility] Gynecologic Oncology ServicesStart: 12-13-2021 End: 87-91-1171ZWEOGVOVCOUTfqkgSamaritan Hospitaltart: 12-13-2021 End: 58-46-9439Ffeqtumwx to same day surgery centerSTVZ ORComment on above: VAGINECTOMY, CYSTOSCOPYCYSTOSCOPY, VAGINECTOMYStart: 60-56-9872Dlyqmsfkde hospital visit by pqorbknxr21/04/2022 Hospital Encounter IP Unit Emma Garza MD [address] [facility] [address] [place], [place] [id number] STVZ ORStart: 12-13-2021 End: 45-81-4067Mlsyicwwgtf complete removal vaginal wallVAGINECTOMY VAGINAL DYSPLASIA, RULE OUT CANCER 12/13/2021 10:20 AM [facility] Systemtart: 84-30-9612Yvaqeh Wellness Visit (AWV)Annual Wellness Visit (AWV) [facility] HospitalStart: 44-48-2818ZGMNS-19 VACCINE (4 - Booster for Moderna series) COVID-19 VACCINE (4 - Booster for Moderna series)[facility] Hospitaltart: 07-01-2021 End: 78-71-0720Dhwrdlu encounter lvmuwhuse51/21/2021 Office Visit Gynecologic Oncology Kin Abarca MD [address] [facility] [address] [place] [address] [phone] [facility] Gynecologic Oncology ServicesStart: 50-13-6048Lgziydffv vaccinationFlu vaccine (#1)[facility] Work Phone: start: 54-54-5262YUIEB-19 Vaccine (3 - Booster for Moderna series)COVID-19 Vaccine (3 - Booster for Moderna series)[facility] Start: 87-69-1535Fvmlplxqgh A1c zsafqjsctarIkP5IDqewbiabl ClinicStart: 25-61-2085Avlrptlert A1c/Hemoglobin.total in JxfutBPT2YWiponnbfo ClinicStart: 21-82-4444Nsolevveugas Vaccine: 50+ (2 of 2 - PCV)Pneumococcal Vaccine: 50+ (2 of 2 - PCV)[facility] Hospitaltart: 27-93-4053Cfmxxgaymtua Vaccine: 65+ (2 - PCV) Pneumococcal Vaccine: 65+ (2 - PCV)[facility] Hospitaltart: 40-29-7927Hzszkkeafgmc Vaccine: 65+ Years (2 of 2 - PCV)Pneumococcal Vaccine: 65+ Years (2 of 2 - PCV) [facility] HealthcareStart: 90-27-8712CQVKGYRHRWKH: 65+ (2 - PCV)PNEUMOCOCCAL: 65+ (2 - PCV)[facility] Hospitalt[facility]: 93-59-6794VJM Vaccine (1 - 1-dose 75+ series)RSV Vaccine (1 - 1-dose 75+ series)[facility]: 91-97-0236PAPT DENSITYBONE DENSITYKettering Memorial Hospitaltart: 72-34-8753Ywih Density ScreeningBone Density ScreeningKettering Memorial Hospitaltart: 68-00-3456Bhayhuloxkiq 65+ years Vaccine (1 - PCV)Pneumococcal 65+ years Vaccine (1 - PCV)[facility]WH[facility] MEDICAL CENTERStart: 00-82-5784Qmjowgcxkwji 65+ years Vaccine (1 of 1 - PPSV23)Pneumococcal 65+ years Vaccine (1 of 1 - PPSV23)[facility]: 73-88-7775Jfmztugti for osteoporosisBone Density ScreeningKettering Memorial Hospitaltart: 97-79-4966Oajwctuwm B Vaccine (1 of 3 - Risk 3-dose series)Hepatitis B Vaccine (1 of 3 - Risk 3-dose series)[facility]: 86-75-6962Vxrtisxdh for osteoporosisDEXA (modify frequency per FRAX score)[facility]: 56-68-2340Ghukqzgs Vaccine (1 of 2) Shingles Vaccine (1 of 2)[facility]: 28-92-3750MJCCCTWN VACCINE (1 of 2) SHINGRIX VACCINE (1 of 2)[facility]: 37-33-6589HCxZ/Tdap/Td vaccine (1 - Tdap)DTaP/Tdap/Td vaccine (1 - Tdap)[facility]art: 60-73-1488Xochd microalbumin profileKettering Memorial Hospitaltart: 45-68-1678ABBEZS PCP TEAM CHRONIC DISEASE VISITANNUAL PCP TEAM CHRONIC DISEASE VISITKettering Memorial Hospitaltart: 84-68-9930Tlnsjvg ScreeningAnxiety ScreeningKettering Memorial Hospitaltart: 76-90-4914TH CONTROLLED (<130/80)BP CONTROLLED (<130/80)[facility]: 1958 Depression ScreeningDepression ScreeningKettering Memorial Hospitaltart: 1958 Hepatitis B surface antibody levelLDL CHOLESTEROLKettering Memorial Hospitaltart: 83-55-2075Dtpvhushv C screeningHepatitis C screenBON SECOURS [facility]INC[facility]NAT[facility] MEDICAL CENTERStart: 01-86-7888Aqqwgwkmxs ScreenDepression ScreenClermont County Hospitalart: comp foot exam completedDIABETIC FOOT EXAMCleMcCullough-Hyde Memorial Hospitaltart: 60-16-6495Qzdtyroc foot examinationDiabetic Foot ExamKettering Memorial Hospitaltart: 08-20-9317Zlaukzyr screeningDilated Retinal ExamCleMcCullough-Hyde Memorial Hospitaltart: 00-80-0699Njedtxrcz B screeningURINE ALBUMIN:CREATININE RATIOKettering Memorial Hospitaltart: 1950 Hepatitis C antibody, confirmatory testDILATED RETINAL EXAMUc Medical Center Start: 49-50-5413Nvdjg panelMercy Health Perrysburg HospitalStart: 76-36-0815Unyvavdbl C screening Hepatitis C screenMercy Health Perrysburg HospitalEKG 12 LeadEKG 12 Lead ECG STAT 06/28/2022 7:29 AM EDTBON [employer] Work Phone: Homogenous nuclear Ab pattern [Titer] in Serum [facility] End: 94-23-8893RZSIGBVD PACU OXYGEN THERAPY PROTOCOLInitiate PACU Oxygen Therapy Protocol Respiratory Care Routine Continuous until discontinued starting 12/13/2021[facility] CenterProtalex Work Phone: Comment on above:Continuous until discontinued starting 12/13/2021 End: 17-65-4862KBFHPOEO PACU OXYGEN THERAPY PROTOCOLInitiate PACU Oxygen Therapy Protocol Respiratory Care Routine Continuous until discontinued starting 06/28/2022ON [facility]ENTERW[facility] Work Phone: comment on above:Continuous until discontinued starting 06/28/2022 End: 61-21-0392XNF DIAGNOSTIC BILATERALMAM DIAGNOSTIC BILATERAL Radiology Routine 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, estrogen receptor positive (HCC) 1 Occurrences starting 06/20/2023 until 07/19/2024 [facility] Work Phone: Comment on above:1 Occurrences starting 06/20/2023 until 07/19/2024Nuclear Ab [Titer] in [facility]Ad[facility] Work Phone: Spirometry panelIncentive spirometry Respiratory Care Routine Every 2hr while awake until discontinued starting 12/13/2021[facility] CenterProtal[facility] Work Phone: comment on above:Every 2hr while awake until discontinued starting 12/13/2021urgical PathologySurgical Pathology Lab Routine Release Upon Ordering for 1 Occurrences starting 06/15/2021[facility] CenterProtalex Work Phone: comkhhf on above:Release Upon Ordering for 1 Occurrences starting 06/15/2021urgical PathologySurgical Pathology Lab Routine Release Upon Ordering for 1 Occurrences starting 12/13/2021[employer] Phone: comment on above:Release Upon Ordering for 1 Occurrences starting 12/13/2021urgical PathologySurgical Pathology Lab Routine Vaginal dysplasia Release Upon Ordering for 1 Occurrences starting 06/28/2022[employer] Phone: comment on above:Release Upon Ordering for 1 Occurrences starting 06/28/2022 End: 21-37-9585UGBCXKAE PATHOLOGY REPORTSURGICAL PATHOLOGY REPORT Lab Routine Once for 1 Occurrences starting 06/28/2022 until 06/28/2022[employer] Phone: comment on above:Once for 1 Occurrences starting 06/28/2022 until 06/28/2022 End: 95-47-4041SHOUTKKV PATHOLOGY REPORTSURGICAL PATHOLOGY REPORT Lab Routine Once for 1 Occurrences starting 11/24/2022 until 11/24/2022[employer] Phone: comonlf on above:Once for 1 Occurrences starting 11/24/2022 until 11/24/2022[facility] Immunizations Immunization DateImmunizationNotesCare VwwrdrjlBeaankot31-98-4549tveckvnib virus vaccine, unspecified formulationPeyman Hensley DPM Work Phone: [facility] HospitalEtwswmvunf70-38-6948qkspymblz virus vaccine, unspecified formulationMichael NILL [facility] Wvzwlkiv58-49-4994QEVU-RhR-7 (COVID-19) mRNA-1273 vaccineMichael NILL [facility] Alxdujpn55-10-2028lrbmxokfm (HD-IIV4) vaccine, age 65+ yr, high dose, quadrivalent, PF (FLUZONE HIGH-DOSE)Wallace Stone MD Work Phone: [facility] CenterXnsjgk67-22-5821zyguikegl virus vaccine, unspecified formulationMindy Kaleigh PA-C Work Phone: [facility] CenterDuczuq32-44-8806WTLWZ-97, Moderna, PF, 100mcg/0.5mLStv XrMain Campus Medical Center Ehbbun97-70-5996BNCHL-01, Moderna, PF, 100mcg/0.5mLStv [facility] Work Phone: [phone]hjve trivalent influenza vaccine, adjuvanted, preservative freeWallace Stone MD Work Phone: [facility] CenterIdzzjo52-02-6971emkdabggi, high dose seasonal, preservative-freeWallace Stone MD Work Phone: [facility] CenterIrfgfl79-79-5097echnwvjwbokt polysaccharide vaccine, 23 valentWallace Stone MD Work Phone: [facility] CenterFesdzd99-24-5579dpwvmgekd, high dose seasonal, preservative-freeWallace Stone MD Work Phone: [facility] CenterMhetjy42-23-6954uiijmdzgm, high dose seasonal, preservative-freeWallace Stone MD Work Phone: [facility] CenterUlckxd73-98-7984kspninohayve polysaccharide vaccine, 23 valentWallace Stone MD Work Phone: [facility] CenterXipjga56-23-7042fvfkceqwo virus vaccine, whole virusWallace Stone MD Work Phone: [facility] Payers DatePayer CategoryPayerPolicy [id number]-rnj [id number] 2008Medicare [id number] Health Insurance [id number]84742.75657-52-0168Rihkxpk 1.2.840.113276.1.13.159.2.7.3.080127.65153-62-1926Knbvdhp568555-85 1.2.840.235031.1.13.239.2.7.3.027551.315 [id number] 1.2.840.719807.1.13.239.2.7.3.784596.81568-25-9147Irhe-hxt61341482004-49-2936 [id number] 2.16.840.9.519372.26147193-61-6676Mlqpffo4485250 2.16.840.1.521690.3.579.2.42896-44-6992Xjyorxm0302410 2.16.840.1.140283.3.579.2.31149-68-0116Yjqjkxv1238523 2.16.840.1.884829.3.579.2.77667-15-2211Jlserlo1572372 2.16.840.1.830014.3.579.2.00666-43-9136Wcrfgap1343712 2.16.840.1.780535.3.579.2.55878-35-8644Rfvamgi3268041 2.16.840.1.553517.3.579.2.17901-87-2035Ilydzyq6862473 2.16.840.1.498659.3.579.2.02017-81-2343Cqhcygu1648901 2.16.840.1.620915.3.579.2.20502-51-0199Bbclfhb8850358 2.16.840.1.028315.3.579.2.90417-07-5633Gowgspr5510945 2.16.840.1.463986.3.579.2.76739-54-7648Cpydqkd5643633 2.16840.1.248807.3.579.2.61478-36-8914Ehthnpt9299614 2.16840.1.159853.3.579.2.15162-95-5270Gtroace2436464 2.16840.1.570997.3.579.2.51405-39-8964Fcojckr7881096 2.16840.1.125918.3.579.2.94891-48-9436Dxdcaws5359587 2.840.1.943284.3.579.2.99834-18-0397Glgkamy7161594 2.840.1.862341.3.579.2.35985-91-8571Binlmfo1543288 2.840.1.762475.3.579.2.90776-39-6978Nlvhfcs8894747 2.840.1.032145.3.579.2.42429-28-2294Vyjsxpl7422846 2.840.1.443066.3.579.2.86944-16-3867Myukbno0326131 2.840.1.431679.3.57[id number] 2.840.1.231077.3.57[id number] 2.840.1.087081.3.579.[id number] 2.16840.1.870776.3.579.2.18376-60-1312Judjyei7991147 2.16840.1.863792.3.57[id number] 2.16840.1.938993.3.57[id number] 2.16.840.1.195787.3.579.[id number] 2.16.840.1.270996.3.57[id number] 2.16.840.1.492248.3.57[id number] 2.16.840.1.211937.3.57[id number] 2.16.840.1.699299.3.579.[id number] 2.16.840.1.684242.3.579.[id number] 2.16.840.1.882102.3.579.[id number] 2.16.840.1.253142.3.57[id number] 2.16.840.1.691525.3.579.[id number] 2.16.840.1.097349.3.579.[id number] 2.16.840.1.693096.3.579.2.09822-18-8529Priqynm283961860 2.16.840.1.689570.3.579.2.62615-45-9842Hfcetpo4152557 2.16.840.1.883517.3.579.2.277684-37-3332Ztafnjd9031508 2.16.840.1.264877.3.579.2.818168-73-9500Lsexzrj5544009 2..840.1.894094.3.579.2.[id number] 2.16.840.1.737009.3.579.2.1259MedicareMedicare [id number] 2.16.840.1.5134[id number] 2.16.840.1.300472.3.579.2.531 [id number] 2.16.840.1.3893[id number] 2.16.840.1.74747[id number] 2.16.840.1.274082.3.579.2.531 Social History DateTypeDetailFacilityStart: 05-12-2021 End: 08-49-6532Otaqebv smoking status NHISFormer smokerUniversity Hospitals Geauga Medical CenterLocal Magnet Phone: start: 09[birth year]11-1960 End: 51-64-1404Zwojwug of tobacco useCurrent smokerUniversity Hospitals Geauga Medical CenterProtalexStart: 09-11-1962 End: 73-80-8547Zcoavgc of tobacco useCigarette SmokerUniversity Hospitals Geauga Medical CenterProtalexStart: 05-12-2021 End: 60-81-6288Usaqwgm use and exposureNever usedMain Campus Medical Center EverpixStart: 05-12-2021 End: 04-02-6503Vplntyg intakeEx-drinker (finding)Geliyoo Phone: start: 37-17-6418Add Assigned At BirthNot on [facility] HospitalLocal Magnet Phone: start: 11-26-2021 End: 15-70-6788Dlqtttyh to SARS-CoV-2 (event)Not [facility] GeneralProtalexStart: 06-15-2021 End: 56-07-0441Rquccqhwcc smoked current (pack per day) - ReportedUc Medical CenterHistory of tobacco usePassive Sosa [facility] Definition 6 Work Phone: start: 46-83-5857Oxcfevh smoking statusNeverGeneral Surgery BellevueStart: 02-14-2023 End: 67-49-6096Len Assigned At [facility] Centertart: 09-19-2022 End: 84-20-3642Fcjstyc intakeCurrent non-drinker of alcohol (finding)[facility] Hospitaltart: 26-42-5850Saa Assigned At [facility] Health SystemTobacc smoking status NHISTobacco smoking consumption unknownLAKEVIEW HOSPITAL HealthcareStart: 06-20-2024 End: 31-10-7723Knewpmlse beverage intakeLifetime non-drinker (finding)[facility] HealthcareStart: 10-30-2024 End: 22-85-4901KyzZwkalw (finding)[facility] Medical Equipment Procedure CodeEquipment CodeEquipment Original TextEquipment IdentifierDates Aortogram, abdominal, with bilateral lower extremity runoffIR STENT BLUE 6 X 12 80CMFDAStart: 89-98-5733Aqdyomdmr, abdominal, with bilateral lower extremity runoffIR STENT SMART 6 X 120 120CMFDAStart: 27-65-2831Jlcgdolfy, abdominal, with bilateral lower extremity runoffIR STENT SMART 6 X 40 120CMFDAStart: 04-25-2019 Aortogram, abdominal, with bilateral lower extremity runoffIR STENT BLUE 6 X 12 80CMFDAStart: 38-41-4456Dkbjbrnic, abdominal, with bilateral lower extremity runoffIR STENT SMART 6 X 120 120CMFDAStart: 69-60-7470Qincuvpmp, abdominal, with bilateral lower extremity runoffIR STENT SMART 6 X 40 120CMFDAStart: 04-25-2019 Aortogram, abdominal, with bilateral lower extremity runoffIR STENT BLUE 6 X 12 80CMFDAStart: 29-09-6292Bklioiqfn, abdominal, with bilateral lower extremity runoffIR STENT SMART 6 X 120 120CMFDAStart: 23-09-0215Tjnougwok, abdominal, with bilateral lower extremity runoffIR STENT SMART 6 X 40 120CMFDAStart: 04-25-2019 Aortogram, abdominal, with bilateral lower extremity runoffIR STENT BLUE 6 X 12 80CMFDAStart: 05-73-1020Rromkxgrh, abdominal, with bilateral lower extremity runoffIR STENT SMART 6 X 120 120CMFDAStart: 53-13-7061Miqpldfap, abdominal, with bilateral lower extremity runoffIR STENT SMART 6 X 40 120CMFDAStart: 04-25-2019 Aortogram, abdominal, with bilateral lower extremity runoffIR STENT BLUE 6 X 12 80CMFDAStart: 58-21-3312Dajnncqko, abdominal, with bilateral lower extremity runoffIR STENT SMART 6 X 120 120CMFDAStart: 21-60-3176Znopkfjsg, abdominal, with bilateral lower extremity runoffIR STENT SMART 6 X 40 120CMFDAStart: 04-25-2019 Aortogram, abdominal, with bilateral lower extremity runoffIR STENT BLUE 6 X 12 80CMFDAStart: 01-20-4868Atcgwlixr, abdominal, with bilateral lower extremity runoffIR STENT SMART 6 X 120 120CMFDAStart: 16-65-5650Ozxrxbnly, abdominal, with bilateral lower extremity runoffIR STENT SMART 6 X 40 120CMFDAStart: 04-25-2019 Aortogram, abdominal, with bilateral lower extremity runoffIR STENT BLUE 6 X 12 80CMFDAStart: 87-59-8696Grijxjpxx, abdominal, with bilateral lower extremity runoffIR STENT SMART 6 X 120 120CMFDAStart: 33-40-8070Nkmnqjpkr, abdominal, with bilateral lower extremity runoffIR STENT SMART 6 X 40 120CMFDAStart: 04-25-2019 Aortogram, abdominal, with bilateral lower extremity runoffIR STENT BLUE 6 X 12 80CMFDAStart: 12-80-3519Ayojcozif, abdominal, with bilateral lower extremity runoffIR STENT SMART 6 X 120 120CMFDAStart: 98-03-9738Knvfalupf, abdominal, with bilateral lower extremity runoffIR STENT SMART 6 X 40 120CMFDAStart: 04-25-2019 Functional Status JqnvMhzxclcyedBigcjyGbswcbbv14-17-6865Lihsxuunfx StatusN/AGeneral Surgery [place] Clinical Notes 05-12-2021 to 07-03-2025 Note Date & [id number] History of Present illness Narrative* Peyman Hensley, DPM - 07/03/2025 1:50 PM EDT Patient: Harman Mcleod : 1940 PCP: Mateus Perry MD SUBJECTIVE This is a 84 y.o. [...] No Food Insecurity (09/12/2024) Received from [facility] Hunger Vital Sign Within the past 12 months, you worried that your food would run out before you got the money to buymore.: Never true Within the past 12 months, the food you bought just didn't last and you didn't have money to get more.: Never true Transportation Needs: No Transportation Needs (09/12/2024) Received from [facility] Transportation In the past 12 months, [...] Not At Risk (09/12/2024) Received from [facility] Humiliation, Afraid, Rape, and Kick questionnaire [...] Stability: Low Risk (09/12/2024) Received from [facility] Housing Stability Vital Sign In the last 12 months, was there a time when you were not able to pay the mortgage or rent on time?: No In the past 12 months, how many times have you moved where you were living?: 1 At any time in the past 12 months, were you homeless or living in a group home (including now)?: No ROS: General: denies fever, [...] and negative PT pedal pulses NEURO: 5.07 Langley Sybil monofilament test intact to digits and forefoot bilaterally 125Hz tuning fork diminished to 1st MPJ bilaterally ORTHO: Positive pain on palpation to toenails of the left 1,2,3,4,5 toes and right 1,2,3,4,5 toes ASSESSMENT 1. Diabetes mellitus due to underlying condition with diabetic polyneuropathy, 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 terminal operations supervisor insulin use (HCC) 2. Pain due to [...] may have biopsy in the future Peyman Hensley DPM documented in this encounterNOMS [id number] NoteUT Electrophysiology Consult Note [place] Cardiology [facility] Reason for visit: s/p CRTD and AVN ablation, wound issues 01/21/25 Patient is here today for a 3 month follow up. Patient states she is doing good. Patient states her biggest complaint is pain from her waist down to her feet. Patient states she treated for RA. Patient denies any cardiac complaints at this time. Patient has been diagnosed with rheumatoid arthritis and has been on chronic steroid therapy. She has found no significant benefit and they are wanting to increase the dose. Review of Systems Musculoskeletal: Positive for arthritis (RA) and joint pain. 10/13/24 Patient here for 1 mo follow up afib, CAD, and CHF. Had routine labs with lipid panel last month. 09/24/24 Patient here for 2 week follow up wound check. Had routine labs with lipid panel yesterday. Wound healed well. 09/12/24 Wound is healing well. Skin well [...] today shows good function. Patient underwent the BOAT JOINER placement on 07/10/2024 and subsequently underwent an AV node ablation on 08/12/2024. Prior HPI: Harman Mcleod is a 84 y.o. year old with past medical history [...] in A-fib. She was just discharged from [facility] for GI bleed. Eliquis and aspirin [...] murmur Hyperlipidemia Hypertension PVD (peripheral vascular disease) PSH: Past Surgical History: Procedure Laterality Date CARDIAC CATHETERIZATION 12/15/2011, 08/23/2010, 12/30/2004, CORONARY STENT PLACEMENT HYSTERECTOMY 03/11/2005 INSERT / REPLACE / REMOVE PACEMAKER VASCULAR SURGERY SH: Social Determinants of Health Tobacco Use: Medium Risk (01/21/2025) Patient History Smoking Tobacco Use: Former Smokeless [...] issues tendon issues Cefdinir Other Tramadol Other Oxycodo (more content not included)...[facility] 11-21-2024 History of Present illness Narrative* Peyman Hensley, DPM - 11/21/2024 2:40 PM EDT Patient: Harman Mcleod : 1940 PCP: Mateus Perry MD SUBJECTIVE This is a 84 y.o. [...] discussion of possible punch biopsy and states minimal improvementsince prior visit Allergies: No Known Allergies Past [...] No Food Insecurity (09/12/2024) Received from [facility] Hunger Vital Sign Within the past 12 months, you worried that your food would run out before you got the money to buymore.: Never true Within the past 12 months, the food you bought just didn't last and you didn't have money to get more.: Never true Transportation Needs: No Transportation Needs (09/12/2024) Received from [facility] Transportation In the past 12 months, [...] Not At Risk (09/12/2024) Received from [facility] Humiliation, Afraid, Rape, and Kick questionnaire Fear of Current or Ex-Partner: No Emotionally Abused: No Physically Abused: No Sexually Abused: No Housing Stability: Low Risk (09/12/2024) Received from [facility] Housing Stability Vital Sign In the last 12 months, was there a time when you were not able to pay the mortgage or rent on time?: No In the past 12 months, how many times have you moved where you were living?: 1 At any time in the past 12 months, were you homeless or living in a group home (including now)?: No ROS: General: denies fever, [...] region. Medial right calf region has a 0.2cmx0.2cm cm black neoplasm with diminished raised borders of unknown origin. Left anterior braun has a healed area of ulceration with negative openings VASC: Negative DP and negative PT pedal pulses NEURO: 5.07 Langley Sybil monofilament test intact to digits and forefoot bilaterally 125Hz tuning fork diminished to 1st MPJ bilaterally ORTHO: Positive pain on palpation to toenails of the left 1,2,3,4,5 toes and right 1,2,3,4,5 toes ASSESSMENT 1. Diabetes mellitus due to underlying condition with diabetic polyneuropathy, 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 terminal operations supervisor insulin use ([facility]) 2. Pain due to onychomycosis of toenails of both feet 3. Venous insufficiency 4. Neoplasm of uncertain behavior of skin 5. 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 ([facility]) PLAN Discussed proper foot care with patient [...] Continue with compression stockings for venous stasis Will observe for changes over the next few visits to monitor and did advise biopsy although patientdeclined Peyman Hensley DPM documented in this encounterWashington County Memorial [id number] NoteUT Electrophysiology Consult Note [facility] Cardiology [facility] Reason for visit: s/p CRTD and AVN ablation, wound issues 10/13/24 Patient here for 1 mo follow up afib, CAD, and CHF. Had routine labs with lipid panel last month. 09/24/24 Patient here for 2 week follow up wound check. Had routine labs with lipid panel yesterday. Wound healed well. 09/12/24 Wound is healing well. Skin well [...] today shows good function. Patient underwent the BOAT JOINER placement on 07/10/2024 and subsequently underwent an AV node ablation on 08/12/2024. Prior HPI: Harman Mcleod is a 84 y.o. year old with past medical history [...] in A-fib. She was just discharged from [facility] for GI bleed. Eliquis and aspirin [...] (CMS/HCC) CAD (coronary artery disease) Cancer ([facility]/HCC) CHF (congestive heart failure) ([facility]/HCC) Chronic kidney disease COPD (chronic obstructive pulmonary disease) ([facility]/HCC) Diabetes mellitus ([facility]/HCC) GI bleed Heart murmur Hyperlipidemia Hypertension PVD (peripheral vascular disease) PSH: Past Surgical History: Procedure Laterality Date CARDIAC CATHETERIZATION 12/15/2011, 08/23/2010, 12/30/2004, CORONARY STENT PLACEMENT HYSTERECTOMY 03/11/2005 VASCULAR SURGERY SH: Social Determinants of Health Tobacco Use: Medium Risk (10/08/2024) Received from [facility] Patient History Smoking Tobacco Use: Former Smokeless [...] Oxycodone-Acetaminophen Other GI upset & rash Weight: 64.4kg Visit Vitals BP 138/78 (BP Location: Left arm, Patient Position: Sitting) Pulse 75 Ht 1.524 m (5') Wt 64.4 kg (142 lb) SpO2 97% BMI 27.73 kg/m??? OB Status Postmenopausal Smoking Status Former BSA 1.65 m??? Meds: Current Outpatient Medications on File Prior to Visit Medication Sig Dispense Refill albuterol 2.5 mg /3 mL (0.083 %) nebulizer solution USE 1 VIAL IN NEBULIZER 4 TIMES DAILY NEEDED luba (more content not included)...[facility] 10-09-2024 Telephone encounter Note* Telephone Encounter - Vernell Dey RN - 10/09/2024 9:01 AM EST Pt informed of AV message, once verified, using 2 patient identifiers. She will obtain and start B12, as recommended. Patient denies any questions, needs or concerns at this time. Appointment verified. Vernell Dey RN [facility]01-29-2025 Miscellaneous Notes* Telephone Encounter - Vernell Dey RN - 10/09/2024 9:01 AM EST Pt informed of AV message, once verified, using 2 patient identifiers. She will obtain and start B12, as recommended. Patient denies any questions, needs or concerns at this time. Appointment verified. Vernell Dey RN * Telephone Encounter - Vaibhav Ashton MD - 10/09/2024 8:38 AM EST Please tell her to start OTC B12 supplements 1000mcg one tab daily for the low B12 levels. Thank you. documented in this encounterUc Medical Center01-29-2025 Telephone encounter Note * Telephone Encounter - Vaibhav Ashton MD - 10/09/2024 8:38 AM EST Please tell her to start OTC B12 supplements 1000mcg one tab daily for the low B12 levels. Thank you. [facility]01-28-2025 Instructions* Patient Instructions* Vaibhav Ashton MD - 10/08/2024 1:23 PM EST Labs today Arimidex sent to pharmacy F/u in 6 months documented in this encounterUc Medical Center01-28-2025 History of Present illness Narrative* Vaibhav Ashton MD - 10/08/2024 1:00 PM EST Images from the original note were not included. PATIENT NAME: Harman Mcleod CLINIC NO.: [id number] ATTENDING PHYSICIAN: Vaibhav Ashton MD DATE OF SERVICE: 10/08/24 Some of the elements of this note have been copied from Winnie MILLAN previous progress note dated 06/20/23. All the information has been reviewed carefully. CC: Follow up Diagnosis: T1b, N0, M0- R breast, Tumor 9 mm, Grade 2, Margins negative, Negative LVI, 2 SNL negative, ER and KS >95% positive, Her2 IHC 1+ Treatment History: [...] her elevated uric acid levels and arthritis. 10/07/24: - Remains on arimidex - Had AICD placed in Jun 2024 - Mammogram done at [facility] - On eliquis for Afib PAST MEDICAL HISTORY Diagnosis Date ASCUS with [...] Social History Tobacco Use Smoking status: Former Current packs/day: 0.00 Average packs/day: 0.5 packs/day for 50.0 years (25.0 ttl pk-yrs) Types: Cigarettes Start date: 06/28/1968 Quit date: 06/28/2018 Years since quittin.2 Passive exposure: Past Smokeless tobacco: Never Vaping Use Vaping status: Never Used Substance Use Topics Alcohol use: No Drug [...] tingling of hands/feet. No weakness. PHYSICAL EXAMINATION: There were no vitals taken for this visit. ECOG PERFORMANCE STATUS: 1- Restricted in physically [...] Range Status 06/20/2023 4.8 % Final Abs [place] Date Value Ref Range Status 06/20/2023 0.49 <0.87 k/uL Final Abs E[place] Date Value Ref Range [...] follow up. R Breast T1b,N0,M0- ER and KS >95% positive and Her-2 IHC 1+ tumor post Lumpectomy and SNL 10/2022. Reviewed path and she elected not to proceed with XRT and started Arimidex in 11/2022. Continues to tolerate well. Continue arimidex. Prescription renewed. - Mammogram in Jun 2024 is unremarkable. - Ordered blood work today. 2. Osteoporosis- On Prolia started 08/[address] Perry. Continue Prolia every 6 months. 3.Vulvar high grade dysplasia- Seen by [facility] in the past. Not following currently. 4 CHF- S/p AICD placement in Jun 2024. 5. Afib on eliquis 6. CKD 7. F/u with PCP, cardiology and other consultants. F/u in 6 months. Total time spent 30 min. Vaibhav Ashton MD [facility] CC: MD Mateus Spicer MD documented in this encounterUc Medical Center01-28-2025 NoteHNO ID: [id number] Author: VAIBHAV ASHTON MD Service: ? Author Type: Physician Type: Progress Notes Filed: 10/08/2024 14:03 Note Text: PATIENT NAME: Harman Mcleod [facility] NO.: [id number] ATTENDING PHYSICIAN: Vaibhav Ashton MD DATE OF SERVICE: 10/08/24 Some of the elements of this note have been copied from Winnie MILLAN previous progress note dated 06/20/23. All the information has been reviewed carefully. CC: Follow up Diagnosis: T1b, N0, M0- R breast, Tumor 9 mm, Grade 2, Margins negative, Negative LVI, 2 SNL negative, ER and KS >95% positive, Her2 IHC 1+ Treatment History: [...] her elevated uric acid levels and arthritis. 10/07/24: - Remains on arimidex - Had AICD placed in Jun 2024 - Mammogram done at [facility] - On eliquis for Afib PAST MEDICAL HISTORY Diagnosis Date ASCUS with [...] Social History Tobacco Use Smoking status: Former Current packs/day: 0.00 Average packs/day: 0.5 packs/day for 50.0 years (25.0 ttl pk-yrs) Types: Cigarettes Start date: 06/28/1968 Quit date: 06/28/2018 Years since quittin.2 Passive exposure: Past Smokeless tobacco: Never Vaping Use Vaping status: Never Used Substance Use Topics Alcohol use: No Drug [...] tingling of hands/feet. No weakness. PHYSICAL EXAMINATION: There were no vitals taken for this visit. ECOG PERFORMANCE STATUS: 1- Restricted in physically [...] 06/20/2023 10.1 Protein, Total (g/dL) Date Value (more content not included)...[facility]01-24-2025 Telephone encounter Note* Telephone Encounter - Carlos Brooks - 10/04/2024 2:27 PM EST Patient has been scheduled w/ Dr. Guzman on Sunday 10/08. Patient notified. Thanks! Carlos Brooks [facility]01-24-2025 Miscellaneous Notes* Telephone Encounter - Carlos Brooks - 10/04/2024 2:27 PM EST Patient has been scheduled w/ Dr. Guzman on Sunday 10/08. Patient notified. Thanks! Carlos Brooks * Telephone Encounter - Nancy Ji - 10/04/2024 1:00 PM EST Patient is aware there are lab orders in to be drawn- says they're out of medication now and weren't even sure if its still necessary to take/refill. I advised them they will probably need new labs and a visit to determine this. Patient granddaughter said they would like to transfer care to [place] * Telephone Encounter - Evita Deshpande, ELADIO - 10/04/2024 12:46 PM EST Per 06/20/23 [facility] oncology: pt is to return in about 4 months (around 10/21/2023) for MD miquel visit. Pt has been lost to follow up NEEDS visit before medication can be renewed: OV Dr Stone in [place]- if too far for pt to drive can forward to [place] team for transition of care with new provider Labs day prior (CBC/diff, CMP) [phone] (home) * Telephone Encounter - Maylin Sandoval RN - 10/04/2024 11:41 AM EST Patient granddaughter/caregiver Misti Mcleod has called in regards to a message the patient received stating that she was scheduled for labs in oct this year in order to refill her anastrozole. There are no appt scheduled or notations made in this regard and patient has checked with PCP. Patient sees Dr Stone and was updated that he practices out of the [facility] location. I made heraware that I will send a message and she is to expect a call. Patient and daughter agree with plan and appreciate the time. Maylin Sandoval RN documented in this encounterUc Medical Center01-24-2025 Telephone encounter Note * Telephone Encounter - Nancy Ji - 10/04/2024 1:00 PM EST Patient is aware there are lab orders in to be drawn- says they're out of medication now and weren't even sure if its still necessary to take/refill. I advised them they will probably need new labs and a visit to determine this. Patient granddaughter said they would like to transfer care to [place] [facility]01-24-2025 Telephone encounter Note* Telephone Encounter - Evita Deshpande RN - 10/04/2024 12:46 PM EST Per 06/20/23 [facility] oncology: pt is to return in about 4 months (around 10/21/2023) for MD miquel visit. Pt has been lost to follow up NEEDS visit before medication can be renewed: OV Dr Stone in [place]- if too far for pt to drive can forward to [place] team for transition of care with new provider Labs day prior (CBC/diff, CMP) [phone] (home) [facility]01-24-2025 Telephone encounter Note* Telephone Encounter - Maylin Sandoval RN - 10/04/2024 11:41 AM EST Patient granddaughter/caregiver Misti Mcleod has called in regards to a message the patient received stating that she was scheduled for labs in oct this year in order to refill her anastrozole. There are no appt scheduled or notations made in this regard and patient has checked with PCP. Patient sees Dr Stone and was updated that he practices out of the [facility] location. I made heraware that I will send a message and she is to expect a call. Patient and daughter agree with plan and appreciate the time. Maylin Sandoval RN [facility]01-14-2025 NoteUT Electrophysiology Consult Note [place] Cardiology [facility] Reason for visit: s/p CRTD and AVN ablation, wound issues 09/24/24 Patient here for 2 week follow up wound check. Had routine labs with lipid panel yesterday. Wound healed well. 09/12/24 Wound is healing well. Skin well [...] today shows good function. Patient underwent the BOAT JOINER placement on 07/10/2024 and subsequently underwent an [...] in A-fib. She was just discharged from [facility] for GI bleed. Eliquis and aspirin [...] Date Abnormal ECG Arrhythmia Atrial fibrillation ([facility]) CAD (coronary artery disease) Cancer ([facility]) CHF (congestive heart failure) ([facility]) Chronic kidney disease COPD (chronic obstructive pulmonary disease) ([facility]) Diabetes mellitus ([facility]) GI bleed Heart murmur Hyperlipidemia Hypertension PVD (peripheral vascular disease) ([facility]) PSH: Past Surgical History: Procedure [...] Oxycodone-Acetaminophen Other GI upset & rash Weight: 66.7kg Visit Vitals BP 143/72 (BP Location: Left arm, Patient Position: Sitting) Pulse 75 Ht 1.524 m (5') Wt 66.7 kg (147 lb) SpO2 97% BMI 28.71 kg/m??? OB Status Postmenopausal Smoking Status Former [...] drink of water. apixaban (Eliquis) 2.5 mg (more content not included)...[facility]01-02-2025 NoteUT Electrophysiology Consult Note [place] Cardiology [facility] Reason for visit: s/p [...] today shows good function. Patient underwent the BOAT JOINER placement on 07/10/2024 and subsequently underwent an [...] in A-fib. She was just discharged from [facility] for GI bleed. Eliquis and aspirin [...] (CMS/HCC) CAD (coronary artery disease) Cancer ([facility]/HCC) CHF (congestive heart failure) ([facility]/HCC) Chronic kidney disease COPD (chronic obstructive pulmonary disease) ([facility]/HCC) Diabetes mellitus ([facility]/HCC) GI bleed Heart murmur Hyperlipidemia Hypertension PVD (peripheral vascular disease) ([facility]) PSH: Past Surgical History: Procedure [...] 1 tablet (2.5 mg) (more content not included)...[facility]12-23-2024 NoteUT Electrophysiology Consult Note [place] Cardiology [facility] Reason for visit: s/p [...] today shows good function. Patient underwent the BOAT JOINER placement on 07/10/2024 and subsequently underwent an [...] in A-fib. She was just discharged from [facility] for GI bleed. Eliquis and aspirin have been put on hold. She was originally scheduled for DCCV today with Dr. eKyes. Jardiance was stopped, and metoprolol was reduced [...] on file Intimate Partner Violence: Unknown (11/02/2023) [place] Safety & Environment Fear of Current or [...] daily. fish oil concen (more content not included)...[facility]12-19-2024 History of Present illness Narrative* Peyman Hensley, FEMI - 08/29/2024 10:00 AM EST Patient: Harman Mcleod : 1940 PCP: Mateus [...] 4 months after hitting object. Currently sees [facility] wound center every 3 weeks with application of Medihoney only and had wounddebridement on prior visit with discussion of possible further intervention by Podiatry. Patient states lesion resolved Patient also has questions concerning a black like lesion on her right leg that is been present forthe past week and denies any trauma to [...] Partner Violence: Unknown (11/02/2023) Received from [facility], [facility] [place] Safety & Environment Fear of [...] and negative PT pedal pulses NEURO: 5.07 Langley Sybil monofilament test intact to digits and forefoot bilaterally 125Hz tuning fork diminished to 1st MPJ bilaterally ORTHO: Positive pain on palpation to nails 1 through 10 Positive pain palpation left anterior braun ASSESSMENT 1. 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 ([facility]/HCC) 2. Diabetes mellitus due to underlying condition with diabetic polyneuropathy, 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 terminal operations supervisor insulin use ([facility]) 3. Pain due to onychomycosis of toenails [...] DSD applied . Patient currently has the [facility] wound center applying Medihoney every other day. Did discuss possibility if no improvement to contact Podiatry for advanced wound care treatments or if any signs of infection Peyman Hensley DPM documented in this encounterWashington County Memorial [id number] NoteUT Electrophysiology Consult Note [place] Cardiology [facility] Reason for visit: s/p [...] today shows good function. Patient underwent the BOAT JOINER placement on 07/10/2024 and subsequently underwent an [...] in A-fib. She was just discharged from [facility] for GI bleed. Eliquis and aspirin [...] Tobacco Use: Medium Risk (06/20/2024) [facility] Patient History Smoking Tobacco Use: Former Smokeless Tobacco Use: Never Passive Exposure: Not on file Alcohol Use: Not on file Financial Resource Strain: Not on file Food Insecurity: Not on file Transportation Needs: Not on file Physical Activity: Not on file Stress: Not on file Social Connections: Not on file Intimate Partner Violence: Unknown (11/02/2023) [place] Safety & Environment Fear of Current or Ex-Partner: Not on file Emotionally Abused: Not on file Physically Abused: Not on file Sexually Abused: Not on file Physically or Sexually Abused: Not on file Depression: Not at risk (02/14/2023) Re[facility], [facility] PHQ-2 PHQ-2 score: 0 Housing [...] mouth two times daily. fish oil concentrate (Beaman-3) 120-180 mg capsule Take 1,000 mg by [...] >130 insulin glargine (L (more content not included)...[facility]12-02-2024 NoteAV NODE ABLATION PROCEDURE REPORT DATE OF PROCEDURE: 08/12/2024 PERFORMING PHYSICIAN: Dr. Brian Kern OUTREACH ANALYST: SAVAGE CONSENT: Patient NAME OF THE PROCEDURE: [...] in A-fib. She was just discharged from [facility] for GI bleed. Eliquis and aspirin have been put on hold. She was originally scheduled for DCCV today with Dr. Keyes. Jardiance was stopped, and metoprolol was reduced to 100mg daily.She underwent BOAT JOINER on 07/10/24 and now presents for AVN [...] 3. Continue anticoagulation. Brian Kern MD Cardiac Electrophysiology.[facility]12-02-2024 Note Patient: Harman Mcleod Procedure Information Date/Time: 08/12/24 1230 Procedure: AV node ablation - PC APPROVED Location: [facility] / [facility] (Cath) Providers: Brian Kern MD Clinical information reviewed: Allergies Meds OB Status Physical Exam Airway Mallampati: II TM distance: >3 FB Neck ROM: full Cardiovascular Dental Pulmonary Abdominal Anesthesia Plan ASA 2 CSE Additional Equipment RequestsUnMiddletown Hospital11-06-2024 Note [place] Cardiology - [facility] Subjective Harman Mcleod is a 83 y.o. year old female patient being seen for S/P PACEMAKER (HERE FOR A WOUND CHECK TODAY), Atrial Fibrillation (CHADSVASC score of 7 ), Coronary Artery Disease, Hypertension, and Edema (LEGS AND FEET ARE SWOLLEN TODAY, PT WANTS TO KNOW IF SHOULD GO BACK ON LASIX DAILY) Patient Active Problem List Diagnosis Angina pectoris (CMS/HCC) Atherosclerosis of [place] coronary artery of [place] heart without angina pectoris Dyslipidemia Dyspnea Gastroesophageal [...] Hyperlipidemia Hypertension PVD (peripheral vascular disease) ([facility]/HCC) Past Surgical History: Procedure Laterality Date CARDIAC [...] 1.549 m (5' 1 (more content not included)...[facility]10-30-2024 NoteCRT-D IMPLANT PROCEDURE NOTE DATE OF PROCEDURE: 07/10/2024 PERFORMING PHYSICIAN: Dr. Brian Kern OUTREACH ANALYST: SAVAGE CONSENT: Patient LOCATION: [employer] PROCEDURE PERFORMED: 1. Implantation of Biventricular ICD ([employer]) 2. U/S venous access 3. Coronary [...] be in A-fib. [facility] was [facility]. Eliquis and aspirin [...] dizziness/lightheadedness. Decision was made to proceed with BOAT JOINER-D device and an AVN ablation. PROCEDURAL DETAILS: [...] occasions using seldinger technique using a 5 Welsh micropunture needle and exchanged for 0.034 wire. I decided to proceed with opening of the pocket. Localinfiltration of 1% Lidocaine was performed and an incision was created in the left upper chest. Dissection was then performed using cautery down. An active fixation [employer] ICD lead was then delivered through [...] postero-lateral branch that was fairly good size. Killbuck-Tammy catheter was then taken out and a 90degree inner cannula was advanced into the CS. The amplatz wire was removed and then a0.24 wire was used as a emily wire. I then used a whisper wire and this tracked into the posterolateral vein. [employer] S shaped lead was advanced over 0.014 wire into the lateral border. Once the guiding sheaths were removed, the lead was secured in the pocket using three 0- Silk sutures.The leads were then attached to a [employer] BOAT JOINER-D device and the leads tug tested and [...] dressing was placed o (more content not included)...[facility] 07-10-2024 NotePatient: Harman Mcleod Procedure Information Date/Time: 07/10/24 1200 Procedure: Implant ICD - biventricular - PC APPROVED [employer] Location: [facility] / [facility] (Cath) Providers: Brian Kern MD Clinical information reviewed: Allergies Meds Physical Exam Airway Mallampati: II TM distance: >3 FB Cardiovascular Dental Pulmonary Abdominal Anesthesia Plan ASA 3 CSE Anesthetic plan and risks discussed with patient. Use of blood products discussed with patient who. Additional Equipment RequestsUnMiddletown Hospital10-30-2024 Note Betadine nasal swabs completed. Pt did CHG wipes last night. Pt stated that the wipes made her break out. Pt does not want to use the wipes again preprocedure. [facility]10-22-2024 NoteUT Electrophysiology Consult Note [place] Cardiology [facility] Reason for visit: Afib [...] in A-fib. She was just discharged from [facility] for GI bleed. Eliquis and aspirin [...] Date Abnormal ECG Arrhythmia Atrial fibrillation ([facility]) CAD (coronary artery disease) Cancer ([facility]) CHF (congestive heart failure) ([facility]) Chronic kidney disease COPD (chronic obstructive pulmonary disease) ([facility]) Diabetes mellitus ([facility]) GI bleed Heart murmur Hyperlipidemia Hypertension PVD (peripheral vascular disease) ([facility]) PSH: Past Surgical History: Procedure [...] on file Intimate Partner Violence: Unknown (11/02/2023) [place] Safety & Environment Fear of Current or [...] mouth two times daily. fish oil concentrate (Beaman-3) 120-180 mg capsule Take 1,000 mg by [...] by mouth at bedti (more content not included)...[facility]10-10-2024 History of Present illness Narrative* Peyman Hensley DPM - 06/20/2024 9:40 AM EDT Patient: Harman Mcleod : 1940 PCP: Mateus [...] 2 months after hitting object. Currently sees [facility] wound center every 3 weeks with application of Medihoney only and states nodebridement to the area Also states that she [...] Partner Violence: Unknown (11/02/2023) Received from [facility], [facility] [place] Safety & Environment Fear of [...] and negative PT pedal pulses NEURO: 5.07 Langley Sybil monofilament test intact to digits and forefoot bilaterally 125Hz tuning fork diminished to 1st MPJ bilaterally ORTHO: Positive pain on palpation to nails 1 through 10 Positive pain palpation left anterior braun ASSESSMENT 1. Venous insufficiency 2. Hav (hallux abducto valgus), left 3. Acquired deformity of left toe 4. 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 ([facility]) 5. 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 Pain due to onychomycosis [...] DSD applied . Patient currently has the [facility] wound center applying Medihoney every other day. Did discuss possibility if no improvement to contact Podiatry for advanced wound care treatments or if any signs of infection Peyman Hensley DPM documented in this encounterWashington County Memorial [id number] Progress note Author Janell Mathews [facility] April 10, 2024 10:30amNote Date/TimeJuly 2023 10:30[place] [address] Wound Center Provider Note Signed Patient: Harman Mcleod MR#: [id number] : 1940 Acct:[id number] Age/Sex: 83 / F Copies to: MD Janell Oliver, CLIENT EXPERIENCE SPECIALIST~ HPI Date of Visit Date of Visit: Date of Service: 04/10/2024 Time of Service: 10: Narrative HPI: 12/11/23 Harman is an 83 year old presenting [facility] for an initial visit for [...] [facility], [facility], the left leg will be treated with honey sheet and unna wrap twice weekly, she can return herein a few weeks, no acute signs of infection notedtoday, ideas for diet and lifestyle and wound healing support were provided on her discharge paperwork, wecan discuss a full functional venous study if healing does not occur timely 12/28/23 both legs were wrapped on arrival, both legs have no open ulcers, both legs were wrapped again today for good measure and [facility] can remove next week and start stockings or wraps if something isopen on the legs, family and friend present for the visit, does not need to return to the office unless new ulcers do develop, spoke about her getting established with a ham rolling machine operator and so hopefully she will follow through on that, spoke about compression socks too forlong term use 01/30/24 both legs are wrapped in unna wraps and they are very tight at the top and have rolled downand she is very tender where they have [...] daily, she can return in a few weeksandhopefully the studies are done and read by then, no signs of infection to the legs or thigh 02/13/24 acting very odd today, granddaughter says that she acts this way when taking pain meds, I amactually questioning a uti or some infectious process, [...] her to the car, she had been instructedto go to the ED per the [facility] nurse but she had refused this [...] that was found 3 inches deep via ctscan- apparently this was opened in the ED back on 02/13/24, 2-3 week appt here 04/10/24 left leg is just about healed, injured herself yesterday on the fireplace and has a skin tear to the rle, spoke about the vascular studies and why I want a referral to vascular for the PAD inthe lle- she understands and her granddaughter does too, no acute infection noted, 2 week appt Subjective Pain Left Leg: Pain Description: Intermittent Pain Intensity: 0 Right Leg: Pain Description: Intermittent Wound/Ulcer History When did wound start?: August 2023 bilateral lower leg ulcers Mode of Arrival/ Trade Analyst: Friend Assistive Device Used Today: Walker Lives with:: Significant Other Appetite Description: Within Normal Limits Who helps w/ dressing change?: Home Health Why Do You Need Help?: Can't Reach Ulcer, Limited mobility, Unsafe leave home byself and Taxing effort to leave home Smoking Status: Former smoker [facility] Medical History (Updated 04/10/24 @ 10:30 by [...] DAILY 04/25/19 [History Confirmed 12/11/23] omega-3s 300 rp-fvv-eqe-other [id number] oil 1,000 mg capsule (Beaman-3 Fish Oil) 2 cap PO BID 04/25/19 [...] pen (Lantus Solostar U-100 Insulin) 10 unit subcutQPM 12/11/23 [History Confirmed 12/11/23] insulin lispro 100 [...] Stasis Ulcer Thickness: Skin Breakdown Bed Appearance: [place] Percent of Wound Bed Granulated/Red: 100 Percent [...] <Electronically signed by FERNY Mathews> 04/10/24 1030 [facility] Work Phone: 1(921) 152-522707-16-2024 Progress note Author Janell Mathews [facility] March 26, 2024 9:51amNote Date/TimeJuly 2023 9:51[place] [address] Wound Center Provider Note Signed Patient: Harman Mcleod MR#: [id number] : 1940 Acct:[id number] Age/Sex: 83 / F Copies to: MD Janell Oliver APRN~ HPI Date of Visit Date of Visit: Date of Service: 03/26/2024 Time of Service: 09:47 Narrative HPI: 12/11/23 Harman is an 83 year old presenting to [facility] wound care for an initial [...] present for the entire visit, she has [facility], the left leg will be treated with honey sheet and unna wrap twice weekly, she can return herein a few weeks, no acute signs of infection notedtoday, ideas for diet and lifestyle and wound healing support were provided on her discharge paperwork, wecan discuss a full functional venous study if healing does not occur timely 12/28/23 both legs were wrapped on arrival, both legs have no open ulcers, both legs were wrapped again today for good measure and [facility] can remove next week and start stockings or wraps if something isopen on the legs, family and friend present for the visit, does not need to return to the office unless new ulcers do develop, spoke about her getting established with a ham rolling machine operator and so hopefully she will follow through on that, spoke about compression socks too forlong term use 01/30/24 both legs are wrapped in unna wraps and they are very tight at the top and have rolled downand she is very tender where they have [...] daily, she can return in a few weeksandhopefully the studies are done and read by then, no signs of infection to the legs or thigh 02/13/24 acting very odd today, granddaughter says that she acts this way when taking pain meds, I amactually questioning a uti or some infectious process, [...] her to the car, she had been instructedto go to the ED per the [facility] nurse but she had refused this [...] that was found 3 inches deep via ctscan- apparently this was opened in the ED back on 02/13/24, 2-3 week appt here Subjective Pain Left Leg: Pain Description: Intermittent Pain Intensity: 0 Wound/Ulcer History When did wound start?: August 2023 bilateral lower leg ulcers Mode of Arrival/ Trade Analyst: Friend Assistive Device Used Today: Walker Lives with:: Significant Other Appetite Description: Within Normal Limits Who helps w/ dressing change?: Home Health Why Do You Need Help?: Can't Reach Ulcer, Limited mobility, Unsafe leave home byself and Taxing effort to leave home Smoking Status: Former smoker [facility] Medical History (Updated 02/13/24 @ 10:54 by [...] DAILY 04/25/19 [History Confirmed 12/11/23] omega-3s 300 px-qph-fye-other [id number] oil 1,000 mg capsule (Beaman-3 Fish Oil) 2 cap PO BID 04/25/19 [...] pen (Lantus Solostar U-100 Insulin) 10 unit subcutQPM 12/11/23 [History Confirmed 12/11/23] insulin lispro 100 [...] Breakdown Bed Appearance: Epithelial Tissue or Bridge, [place] and Yellow Percent of Wound Bed Granulated/Red: [...] <Electronically signed by FERNY Mathews> 03/26/24 0951 [facility] Work Phone: 1(363) 202-170606-04-2024 Progress note Author Janell Mathews [facility] February 13, 2024 10:55amNote Date/TimeJun2023 10:55am[place] [address] Wound Center Provider Note Signed Patient: Harman Mcleod MR#: [id number] : 1940 Acct:[id number] Age/Sex: 83 / F Copies to: MD Janell Oliver APRN~ HPI Date of Visit Date of Visit: Date of Service: 02/13/2024 Time of Service: 10:47 Narrative HPI: 12/11/23 Harman is an 83 year old presenting to [facility] wound care for an initial [...] visit, [facility], the left leg will be treated with honey sheet and unna wrap twice weekly, she can return herein a few weeks, no acute signs of infection notedtoday, ideas for diet and lifestyle and wound healing support were provided on her discharge paperwork, wecan discuss a full functional venous study if healing does not occur timely 12/28/23 both legs were wrapped on arrival, both legs have no open ulcers, both legs were wrapped again today for good measure and hhc can remove next week and start stockings or wraps if something isopen on the legs, family and friend present for the visit, does not need to return to the office unless new ulcers do develop, spoke about her getting established with a ham rolling machine operator and so hopefully she will follow through on that, spoke about compression socks too forlong term use 01/30/24 both legs are wrapped in unna wraps and they are very tight at the top and have rolled downand she is very tender where they have [...] daily, she can return in a few weeksandhopefully the studies are done and read by then, no signs of infection to the legs or thigh 02/13/24 acting very odd today, granddaughter says that she acts this way when taking pain meds, I amactually questioning a uti or some infectious process, [...] her to the car, she had been instructedto go to the ED per the [facility] nurse but she had refused this and wanted to come to this appt instead Subjective Pain Left Leg: Pain Description: Intermittent Pain Intensity: 0 Wound/Ulcer History When did wound start?: August 2023 bilateral lower leg ulcers Mode of Arrival/ Trade Analyst: Friend Assistive Device Used Today: Walker Lives with:: Significant Other Appetite Description: Within Normal Limits Who helps w/ dressing change?: Home Health Why Do You Need Help?: Can't Reach Ulcer, Limited mobility, Unsafe leave home byself and Taxing effort to leave home Smoking Status: Former smoker [facility] Medical History (Updated 02/13/24 @ 10:54 by [...] DAILY 04/25/19 [History Confirmed 12/11/23] omega-3s 300 ou-alz-fis-other oqmpw2h-[id number] oil 1,000 mg capsule (Beaman-3 Fish Oil) 2 cap PO BID 04/25/19 [...] pen (Lantus Solostar U-100 Insulin) 10 unit subcutQPM 12/11/23 [History Confirmed 12/11/23] insulin lispro 100 [...] Posterior Thigh: Bed Appearance: Beefy Red and [place] Percent of Wound Bed Granulated/Red: 0 Percent [...] Code(s): S81.801A - Unspecified open wound, right lowerleg, initial encounter Code(s): S81.801A - Unspecified open [...] <Electronically signed by FERNY Mathews> 02/13/24 1055 [facility] Work Phone: 1(459) 123-581205-21-2024 Progress note Author Janell Mathews [facility] January 30, 2024 10:44amNote Date/TimeMay 2023 10:44[place] [address] Wound Center Provider Note Signed Patient: Harman Mcleod MR#: [id number] : 1940 Acct:[id number] Age/Sex: 83 / F Copies to: MD Janell Oliver APRN~ HPI Date of Visit Date of Visit: Date of Service: 01/30/2024 Time of Service: 10:37 Narrative HPI: 12/11/23 Harman is an 83 year old presenting to [facility] wound care for an initial [...] present for the entire visit, she has [facility], the left leg will be treated with honey sheet and unna wrap twice weekly, she can return herein a few weeks, no acute signs of infection notedtoday, ideas for diet and lifestyle and wound healing support were provided on her discharge paperwork, wecan discuss a full functional venous study if healing does not occur timely 12/28/23 both legs were wrapped on arrival, both legs have no open ulcers, both legs were wrapped again today for good measure and hhc can remove next week and start stockings or wraps if something isopen on the legs, family and friend present for the visit, does not need to return to the office unless new ulcers do develop, spoke about her getting established with a ham rolling machine operator and so hopefully she will follow through on that, spoke about compression socks too forlong term use 01/30/24 both legs are wrapped in unna wraps and they are very tight at the top and have rolled downand she is very tender where they have [...] daily, she can return in a few weeksandhopefully the studies are done and read by then, no signs of infection to the legs or thigh Subjective Pain Left Leg: Pain Description: Intermittent Pain Intensity: 0 Wound/Ulcer History When did wound start?: August 2023 bilateral lower leg ulcers Mode of Arrival/ Trade Analyst: Friend Assistive Device Used Today: Walker Lives with:: Significant Other Appetite Description: Within Normal Limits Who helps w/ dressing change?: Home Health Why Do You Need Help?: Can't Reach Ulcer, Limited mobility, Unsafe leave home byself and Taxing effort to leave home Smoking Status: Former smoker [facility] Medical History (Updated 01/30/24 @ 10:43 by [...] DAILY 04/25/19 [History Confirmed 12/11/23] omega-3s 300 ao-drv-fed-other [id number] oil 1,000 mg capsule (Beaman-3 Fish Oil) 2 cap PO BID 04/25/19 [...] pen (Lantus Solostar U-100 Insulin) 10 unit subcutQPM 12/11/23 [History Confirmed 12/11/23] insulin lispro 100 [...] Posterior Thigh: Bed Appearance: Beefy Red and [place] Percent of Wound Bed Granulated/Red: 100 Percent [...] Code(s): S71.102A - Unspecified open wound, left thigh,initial encounter Code(s): S71.102A - Unspecified open wound, [...] <Electronically signed by FERNY Mathews> 01/30/24 1044 [facility] Work Phone: 1(104) 446-120704-18-2024 Progress note Author Janell Mathews [facility] December 28, 2023 11:22amNote Date/TimeApril 2023 11:22[place], [place] [address] Wound Center Provider Note Signed Patient: Harman Mcleod MR#: [id number] : 1940 Acct:[id number] Age/Sex: 83 / F Copies to: MD Janell Oliver APRN~ HPI Date of Visit Date of Visit: Date of Service: 12/28/2023 Time of Service: 11:19 Narrative HPI: 12/11/23 Harman is an 83 year old presenting to [facility] wound care for an initial [...] entire visit, she has [facility], the left leg will be treated with honey sheet and unna wrap twice weekly, she can return herein a few weeks, no acute signs of infection notedtoday, ideas for diet and lifestyle and wound healing support were provided on her discharge paperwork, wecan discuss a full functional venous study if healing does not occur timely 12/28/23 both legs were wrapped on arrival, both legs have no open ulcers, both legs were wrapped again today for good measure and c can remove next week and start stockings or wraps if something isopen on the legs, family and friend present for the visit, does not need to return to the office unless new ulcers do develop, spoke about her getting established with a ham rolling machine operator and so hopefully she will follow through on that, spoke about compression socks too forlong term use Subjective Pain Left Leg: Pain Intensity: 0 Wound/Ulcer History When did wound start?: August 2023 bilateral lower leg ulcers Mode of Arrival/ Trade Analyst: Friend Assistive Device Used Today: Walker Lives with:: Significant Other Appetite Description: Within Normal Limits Who helps w/ dressing change?: Home Health Why Do You Need Help?: Can't Reach Ulcer, Limited mobility, Unsafe leave home byself and Taxing effort to leave home Smoking Status: Former smoker [facility] Medical History (Updated 12/11/23 @ 09:30 by [...] DAILY 04/25/19 [History Confirmed 12/11/23] omega-3s 300 eh-usu-qot-other pexdl3w-lift oil 1,000 mg capsule (Beaman-3 Fish Oil) 2 cap PO BID 04/25/19 [...] pen (Lantus Solostar U-100 Insulin) 10 unit subcutQPM 12/11/23 [History Confirmed 12/11/23] insulin lispro 100 [...] By: <Electronically signed by FERNY Mathews> 12/28/23 [facility] Work Phone: 1(686) 523-778504-01-2024 Progress note Author Janell Mathews [facility] December 11, 2023 9:35amNote Date/TimeApril 2023 9:35[place], [place] [address] Wound Center Provider Note Signed Patient: Harman Mcleod MR#: [id number] : 1940 Acct:[id number] Age/Sex: 83 / F Copies to: MD Janell Oliver APRN~ HPI Date of Visit Date of Visit: Date of Service: 12/11/2023 Time of Service: 09:27 Narrative HPI: 12/11/23 Harman is an 83 year old presenting to [facility] wound care for an initial [...] entire visit, she has [facility], the left leg will be treated with honey sheet and unna wrap twice weekly, she can return herein a few weeks, no acute signs of infection notedtoday, ideas for diet and lifestyle and wound healing support were provided on her discharge paperwork, wecan discuss a full functional venous study if healing does not occur timely Subjective Pain Left Leg: Pain Description: Soreness Pain Intensity: 3 Wound/Ulcer History When did wound start?: August 2023 bilateral lower leg ulcers Mode of Arrival/ Trade Analyst: Friend Assistive Device Used Today: Walker Lives with:: Significant Other Appetite Description: Within Normal Limits Who helps w/ dressing change?: Home Health Why Do You Need Help?: Can't Reach Ulcer, Limited mobility, Unsafe leave home byself and Taxing effort to leave home Smoking Status: Former smoker [facility] Medical History (Updated 12/11/23 @ 09:30 by [...] DAILY 04/25/19 [History Confirmed 12/11/23] omega-3s 300 wa-gjn-uwy-other rjspk3g-hqmq oil 1,000 mg capsule (Beaman-3 Fish Oil) 2 cap PO BID 04/25/19 [...] pen (Lantus Solostar U-100 Insulin) 10 unit subcutQPM 12/11/23 [History Confirmed 12/11/23] insulin lispro 100 [...] Breakdown Bed Appearance: Epithelial Tissue or Bridge, [place] and Yellow Percent of Wound Bed Granulated/Red: [...] By: <Electronically signed by FERNY Mathews> 12/11/23934 [facility] Work Phone: [phone]) 966-771310-10-2023 Nurse Note* Lina Lopes MA - 06/20/2023 2:49 PM EDT Patient would like to know if she needs a mammogram? She was told in Oct that she would need one in6 months. Lina Lopes MA documented in this encounterUc Medical Center10-10-2023 History of Present illness Narrative* Winnie Farris PA-C - 06/20/2023 2:30 PM EDT Images from the original note were not included. PATIENT NAME: Harman Mcleod CLINIC NO.: [id number] ATTENDING PHYSICIAN: Wallace Stone MD DATE OF [...] Negative LVI, 2 SNL negative, ER and KS >95% positive, Her2 IHC 1+ Treatment History: [...] Range Status 06/20/2023 4.8 % Final Abs [place] Date Value Ref Range Status 06/20/2023 0.49 [...] follow up. R Breast T1b,N0,M0- ER and KS >95% positive and Her-2 IHC 1+ tumor post Lumpectomy and SNL 10/2022. Reviewed path and she elected not to proceed with XRT and started Arimidex in 11/2022. Continues to tolerate well. Mammogram in 07/2023 (order placed). See us in 4 months. Plan is for 5 years of AI therapy Osteoporosis- On Prolia started 08/[address] Perry Vulvar high grade dysplasia- Follows Inspector Process Onc at [facility] R Leg swelling and pain and h/o PVD- Follows vascular HTN--managed by PCP Winnie Farris PA-C CC: MD Mateus Spicer MD documented in this encounterUc Medical Center09-21-2023 Evaluation note* Encounter Date Diagnosis Assessment Notes Treatment Notes Treatment Clinical Notes May, Right leg swelling (ICD-10 - M79 .89) I had a lengthy discussion with this patient today. I do not recommend any further work-up for her leg swelling. I do not believe her leg swelling is of a vascular origin or etiology. We have had several negative duplex ultrasounds of the right lower extremity. In addition I took her to the [facility] and performed a right iliac venogram which was negative for hemodynamically significant stenoses. This patient has a gravity problem. She sits most of the day and gravity draws fluids to her legs. She does not exercise nor does she walk much. I explained her that this is going to happen for peoplewith this level of activity. The leg does not bother her or hurt her. I suggest she ignore it and move on with her life. I did offer her a second opinion at the [facility] vascular medicine program. She declined. I will see her as needed in the future. [facility] Other 06-29-2023 Evaluation note* Encounter Date Diagnosis [...] to call us with any concerns whatsoever. [facility] Other 06-06-2023 History of Present illness Narrative* Wallace Stone MD - 02/14/2023 10:37 AM EDT Images from the original note were not included. PATIENT NAME: Harman Mcleod CLINIC NO.: [id number] ATTENDING PHYSICIAN: Wallace Stone MD DATE OF [...] Negative LVI, 2 SNL negative, ER and KS >95% positive, Her2 IHC 1+ Treatment History: [...] Range Status 02/14/2023 8.3 % Final Abs [place] Date Value Ref Range Status 02/14/2023 0.86 [...] follow up. R Breast T1b,N0,M0- ER and KS >95% positive and Her-2 IHC 1+ tumor post Lumpectomy and SNL 10/2022. Reviewed path and she elected not to proceed with XRT and started Arimidex in 11/2022 and toleraing well. Plan for 5 years of therapy. Osteoporosis- On Prolia started 08/[address] Perry Vulvar high grade dysplasia- Follows Inspector Process Onc at [facility] R Leg swelling and pain and h/o PVD- Follows vascular HTN Rash- refer to Derm Thank you for the kind referral. If there are any questions and or concerns please do not hesitate to contact me at [phone]. Wallace Stone MD Hematology/Medical Oncology [facility] spent a total of 30 minutes on the date of the service which included preparing to see the patient, apbn-qj-ibqb patient care, completing clinical documentation, obtaining and/or reviewing separately obtained history, performing a medically appropriate examination, counseling and educating the pat ient/family/caregiver, and ordering medications, tests, or procedures. CC: MD Mateus Spicer MD documented in this encounterUc Medical Center03-29-2023 Evaluation note* Encounter Date Diagnosis Assessment Notes Treatment Notes Treatment Clinical Notes Nov, Edema of right lower leg (ICD-10 - R60.0) We reviewed the findings on her recent right leg venogram which showed normal- appearing right common iliac vein and IVC. She has diminished surface area of the right common and right external iliac veins. The right common iliac vein diameter was 97 mm in the right external iliac vein reference areadiameter was 78.8. The average is 200 for [...] would like to try the pumps but willhold off on physical therapy and discuss this further with her primary care provider. We discussed t he various etiologies leg edema which again she will discuss further with her primary care provideras well as her child care center administrator. We will continue to follow her along and see her again in a couple of months and see how she is doing with her pumps, conservative efforts, and weight management. She knows to call us in the meantime with any other additional concerns or complaints. [facility] Other 03-21-2023 [facility] noteMartin [facility]03-[facility] Evaluation note* Encounter Date Diagnosis Assessment Notes Treatment Notes Treatment Clinical Notes Nov, Swelling of right lower extremit y (ICD-10 - M79.89) This patient's been complaining [...] a DVT involving the iliac veins only. Thiswould not show up on ultrasound due to [...] will schedule this in the near future. Nov,ain in right lower leg (ICD-10 - M79.661) Nov,Other specified soft tissue disorders (ICD-10 - M79.89) [facility] Other 03-08-2023 Miscellaneous Notes* Telephone Encounter - Adriana Pereira [facility] - 11/16/2022 8:40 AM EST Called Vascular office spoke with Jessy. They have received this referral and have patient scheduledwith Dr Gonzales on 11/23 @ 10:00. Adriana Pereira [facility] * Telephone Encounter - Kira Ko [facility] - 11/10/2022 9:38 AM EST Records faxed. * Telephone Encounter - Adriana Pereira [facility] - 11/10/2022 8:46 AM EST Janeth: Information ready for you. Adriana Burnham * Telephone Encounter - Carlos Brooks - 11/09/2022 2:44 PM EST Vascular Consult [facility] Previous patient of Dr. Mendez 3 years or more. Janteh/Dudley: Can you please refer patient and follow up? Thanks! Carlos Brooks documented in this encounterUc Medical Center03-01-2023 History of Present illness Narrative* Wallace Stone MD - 11/09/2022 2:00 PM EST Images from the original note were not included. PATIENT NAME: Harman Mcleod CLINIC NO.: [id number] ATTENDING PHYSICIAN: Wallace Stone MD DATE OF SERVICE: November 09, 2022 Dear No referring provider defined for this encounter. here is an update on a follow up visit on female Harman Mcleod at the clinic 11/09/2022 Diagnosis: T1b, N0, M0- R breast, Tumor 9 mm, Grade 2, Margins negative, Negative LVI, 2 SNL negative, ER and KS >95% positive, Her2 IHC 1+ Treatment History: [...] follow up. R Breast T1b,N0,M0- ER and KS >95% positive and Her-2 IHC 1+ tumor post Lumpectomy and SNL 10/2022. Reviewed path and she may skip radiation and also discussed hormonal; therapy with an AI and she will start Arimidex. Discussed adverse events and she wishes to proceed. Osteoporosis- On Prolia started 08/[address] 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 If there are any questions and or concerns please do not hesitate to contact me at [phone]. Wallace Stone MD Hematology/Medical Oncology [facility] spent a total of 30 minutes on the date of the service which included preparing to see the patient, ldlf-du-gdsl patient care, completing clinical documentation, obtaining and/or reviewing separately obtained history, performing a medically appropriate examination, counseling and educating the pat ient/family/caregiver, and ordering medications, tests, or procedures. CC: MD Mateus Spicer MD documented in this encounterUc Medical Center02-08-2023 NoteOPERATIVE NOTE OPERATION DATE: 10/19/2022 PREOPERATIVE DIAGNOSIS: Right breast cancer. POSTOPERATIVE DIAGNOSIS: Right breast cancer. PROCEDURE: Needle localized right breast lumpectomy with sentinel lymph node biopsy. SURGEON: Iliana Gagnon M.D. ANESTHESIA: General laryngeal mask airway. BRASS MOLDER: SADI Hammer ESTIMATED BLOOD LOSS: Less than [...] in good condition. CC: Mateus Perry M.D.[id number] NoteEXAMINATION: XR CHEST 2 V HISTORY: Pre-surgery [...] Electronically authenticated by: ALFONSO GEORGE Date: 2022-10-11 12:11[id number] History of Present illness Narrative* Marcin Nayak MD - 09/22/2022 11:38 PM EST Images from the original note were not included. Radiation Oncology - New Patient/Consult Note PATIENT NAME: Harman Mcleod PATIENT Signed: Marcin Nayak MD I spent a total of 60 minutes on the date of the service which included preparing to see the patient, ghwt-hc-bxam patient care, and counseling and educating the patient/family/caregiver. This document has been created with the use of voice recognition technology. It may contain inaccuracies, misspellings, inaccurate syntax or inappropriate word context that are a result of the inadequacies/shortcomings of said technology/software. documented in this encounterUc Medical Center01-12-2023 History of Present illness Narrative* Wallace Stone MD - 09/22/2022 5:10 PM EST Images from the original note were not included. PATIENT NAME: Hraman Mcleod CLINIC NO.: [id number] ATTENDING PHYSICIAN: Wallace Stone MD DATE OF [...] provisional grade 1 through 2, ER and KS greater than 95% positive, HER2/holden negative with an IHC score of 1+ and FISH negative at [facility]. This patient was subsequently referred to Dr. Iliana Gagnon for surgical consultation. Patient denies any previous history of abnormal mammograms and or breast biopsy. She has had a recent bone density in [place] and was diagnosed with osteoporosis and started on Prolia as well. Patient has a sister who was diagnosed with breast cancer at the age of 82 and her daughter diagnosed with breast cancer at the age of 37. She quit smoking approximately 4 years ago. 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 She [...] mouth daily at bedtime. Cut in half Agbky-4-MPH-EPA-Fish Oil 1,000 mg (120 mg-180 mg) cap [...] ductal carcinoma, provisional grade 1-2, ER and KS greater than 95% positive, HER2/holden negative with [...] me to participate in Mrs. Harman Mcleod [facility], ifthere are any questions or concerns please do not hesitate to contact me at the number below. Wallace Stone M.D. Hematology/Medical Oncology [facility] [phone] CC: MD Mateus Spicer MD I spent a total of 60 minutes on the date of the service which included preparing to see the patient, sdpf-ge-tfgv patient care, completing clinical documentation, obtaining and/or reviewing separately obtained history, performing a medically appropriate examination, counseling and educating the pat ient/family/caregiver, ordering medications, tests, or procedures, and communicating with other HCPs (not separately reported). documented in this encounterUc Medical Center01-12-2023 Miscellaneous Notes* Telephone Encounter - Haevenly Wilkerson RN - 09/22/2022 3:52 PM EST Images from the original note were not included. Wallace Stone MD You 2 hours ago (1:49 PM) Ok. * Telephone Encounter - Heavenly Wilkerson RN - 09/22/2022 1:40 PM EST Call placed to Zakiya at Dr Gagnon's office. Pt had cardiac clearance on 09/16/22 and is scheduled for surgery on 10/19/22. There are a few different things that have to be coordinated for her surgery and as of now this date is going to work for everything involved. Heavenly Wilkerson RN documented in this encounterUc Medical Center12-30-2022 NoteChief Complaint consultation for right [...] biopsy that r evealed invasive ductal carcinoma, ER/KS +; Her2 holden negative; patient denies change [...] External Ambulatory Referral 2. Chronic anticoagulation (Z79.01: [facility] (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) hold Eliquis 2 days prior to surgery, if ok with Cardiology. 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 Garza. documented in this encounterSANCTA [facility]PITALBALALIKE[facility] Phone: 1(639) 845-326910-18-2022 Hospital Discharge instructions* Discharge Instructions* Brody Ken [...] urinate call your doctor documented in this encounterSAN[facility]ITAL[facility] Phone: 1(250) 550-708304-04-2022 History of Present illness Narrative* Brody Ken [...] Plunkett MD - 12/13/2021 2:12 PM EDT Inspector Process Oncology Attending Note Patient seen and evaluated [...] chart for or 12/13/21 documented in this encounterGeliyoo Phone: 1([phone]) 134-718604-04-2022 Evaluation note* Diagnosis Vaginectomy w/ Cysto 12/13/21- Primary Other postprocedural status documented in this encounter [facility] Phone: 1(244) 165-103804-04-2022 Hospital Discharge instructions* Instructions* Brody Ken RN [...] of: May 19, 2021 Content Version: 13.2 [employer]. Care instructions adapted under license by [employer]. If you have questions about a medical condition or this instruction, always ask your healthcare professional. [employer] disclaims any warranty or liability for your [...] urinate call your doctor documented in this encounterGeliyoo Phone: 1(174) 201-263303-28-2022 History of Present illness Narrative* YANA Wallis [...] Disease: Yes, stents x 3, Dr. Keyes ([facility]) Hypertension: yes Active smoker: Quit 2017, [...] pcp potassium 3.3,wbc 12.6 documented in this encounterGeliyoo Phone: 1(962) 286-640903-25-2022 Hospital Discharge instructions* Instructions* Yoanna Diaz PA [...] drive you home after your procedure. Your motor coach bus driver must be 18 years of age [...] questions, call the Pre-Admission Testing Unit at [phone]. Day of Surgery/Procedure As a patient at [facility] you can expect quality medical and nursing care that is centered on your individual needs. Our goal is to make your surgical experience as comfortableas possible . Directions to the Surgery Center [facility] is located at [address] [place] [address]. Please pull into the Emergency parking lot and stop at the non profit director richards. We offer free non profit director service for all our surgery patients, if you choose not to have non profit director parking we have additional parking across the street.You will enter the facility following the [facility] sign. Please stop at the corporate receptionist desk where you will be checked in by the staff. If you have any questions please call [phone]. Transportation after your procedure. You will need a friend or family member to drive you home after your procedure. Your motor coach bus driver must be18 years of age or [...] You may shave your face or neck. Wedron your teeth but do not swallow water. [...] or the day of surgery, please call [phone], or [phone] documented in this [facility] [employer] Phone: 1(930) 827-184810-05-2021 History of Present illness Narrative* Parvin Rogel RN - 06/15/2021 10:[address] Kamla gan, pt cleared for phase II * Alla Dickerson DO - 06/15/2021 9:42 AM EDT OB Resident Progress Note Patient may be discharged home once she has met criteria in the PACU. Please perfect serve or page WOOD BORING MACHINE OPERATOR resident listed below with any questions, concerns, or if patient has not met PACU discharge criteria in 2-3 hours. . Please page first. Alla Dickerson DO WOOD BORING MACHINE OPERATOR Resident PGY3 Pager: [phone] [facility], [facility] 06/15/2021, 9:42 AM documented in this [employer] Phone: 1(407) 513-860710-04-2021 Hospital Discharge instructions* Instructions* Alla Dickerson DO [...] cleared by your physician documented in this [facility] CenterLocal [facility] Phone: 1(611) 945-830009-01-2021 Hospital Discharge instructions* Instructions* Na Cabezas APRN [...] public transportation ALONE is not acceptable. -Your motor coach bus driver must be 18 years of age [...] Day of Surgery/Procedure As a patient at [facility] you can expect quality medical and nursing care that is centered on your individual needs. Our goal is to make your surgical experience as comfortableas possible . Directions to the Surgery Center [facility] is located at [address] [place] [address]. Please pull into the Emergency/Surgery Center parking lot and stop at the [employer] richards. We offer free [employer] service for all our surgery patients, if you choose not to have non profit director parking we have additional parking across [...] pharmacy bottles in a zip lock bag. Wedron your teeth but do not swallow water. [...] DAY OF your surgery, you may call [phone] documented in this [facility] [employer] Phone: 1(957) 241-342309-01-2021 History of Present illness Narrative* Mandy Baker [...] Pedal edema Pneumonia PVD (peripheral vascular disease) ([facility]) Thyroid disease Under care of team 05/12/2021 dr Perry [facility]-last visit apr 2021 Under care of team 05/12/2021 [facility] Varicose vein of leg Patient was evaluated in [facility] & anesthesia guidelines were applied. NPO guidelines, medication instructions and scheduled arrival time were reviewed with patient. Anesthesia contacted: Yes I spoke with Dr. Rondon. Patient history and pertinent findings reviewed. Patient with history of CAD, CHF, stress test and cardiac echo (results not in Epic, from outside provider), cardiac stentx 3. Last saw child care center administrator in December 2020. On Eliquis and aspirin prescribed from her child care center administrator. Medical or cardiac clearance ordered: cardiac FERNY Andres CNP 05/12/21 2:43 PM documented in this encounterUniversity Hospitals Geauga Medical CenterLocal Magnet Phone: evaluation + Plan noteGeneral Surgery [place] evaluation + Plan note Future Appointments Appointment Date:11/08/2022 02:00:00 PM Scheduled Provider:Iliana GAGNON MD Location:[facility] Appointment Type:[address] Surgery [place] Evaluation + Plan note Future Appointments Appointment Date:11/22/2022 01:40:00 PM Scheduled Provider:Iliana GAGNON MD Location:[facility] (formerly [facility]) Appointment Type:[address] Evaluation note* Diagnosis Pre-op chest exam Pre-operative respiratory examination [facility]* Diagnosis S/p Partial vaginectomy with Ultrasonic Scalpel 10/5/21- 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, 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 documented in this encounter [employer] Phone: [email or web address] note* Diagnosis Pre-op chest exam Pre-operative respiratory examination documented in this encounter [employer] Phone: [email or web address] note* Diagnosis Vaginal dysplasia Dysplasia of vagina S/p Vaginal and Vulvar Biopsies, CO2 laser vaporization of vaginal and vulvar lesions 06/28/22 Other postprocedural status 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, 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 documented in this encounter [facility] [employer] Phone: evalsjyptj note* Diagnosis 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, estrogen receptor positive (HCC)- Primary [facility] Diagnosis 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 breast in female, estrogen receptor positive (HCC)- Primary [facility]* Diagnosis 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, estrogen receptor positive (HCC)- Primary Claudication in peripheral vascular disease (HCC) Peripheral vascular disease, unspecified [facility] noteNo assessment information [facility] Work Phone: Evaluation noteNo InformationNort [email or web address] 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, estrogen receptor positive (HCC)- Primary Rash Rash and other nonspecific skin eruption Other eczema Stage 3a chronic kidney disease (HCC) [facility]* Diagnosis 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, estrogen receptor positive (HCC)- Primary Stage 3a chronic kidney disease (HCC) [facility]* Diagnosis Onset Date Resolution Status Altered mental status acuteDiabetes mellitusacuteEdema of both lower legsacuteInflammationacuteLeg ulcer, leftacuteLeg wound, rightacuteOpen wound of left thighacuteUses walker acuteVaricose veins of both legs with edemaacute [facility] Work Phone: Evaluation note* Diagnosis Onset Date Resolution Status Altered mental status acuteDiabetes mellitusacuteEdema of both lower legsacuteInflammationacuteLeg ulcer, leftacuteLeg wound, rightacuteOpen wound of left thighacutePAD (peripheral artery disease)acuteUses walkeracuteVaricose veins of both legs with edemaacute [facility] Work Phone: Evaluation note* Diagnosis Hav (hallux abducto valgus), left- Primary Venous insufficiency Unspecified venous (peripheral) insufficiency Acquired deformity of left toe 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 to underlying condition with diabetic polyneuropathy, 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 correction insulin use (CMS/HCC) Pain due to onychomycosis of toenails of both feet [facility]* Diagnosis 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)- Primary Diabetes mellitus due to underlying condition with diabetic polyneuropathy, 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 terminal operations supervisor insulin use (CMS/HCC) Pain due to onychomycosis of toenails of both feet Venous insufficiency Unspecified venous (peripheral) insufficiency Neoplasm of uncertain behavior of skin documented in this encounter [facility]* Diagnosis 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, estrogen receptor positive (HCC)- Primary [facility] Diagnosis 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, estrogen receptor positive (HCC)- Primary Stage 3a chronic kidney disease (HCC) [facility] Diagnosis Neoplasm of uncertain behavior of skin- Primary Diabetes mellitus due to underlying condition with diabetic polyneuropathy, 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 correction insulin use (CMS/HCC) Pain due to onychomycosis of toenails of both feet Venous insufficiency Unspecified venous (peripheral) insufficiency 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) documented in this encounter [facility]* Diagnosis Neoplasm of uncertain behavior of skin- Primary Diabetes mellitus due to underlying condition with diabetic polyneuropathy, 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 terminal operations supervisor insulin use (HCC) Pain due to onychomycosis of toenails of both feet Venous insufficiency Unspecified venous (peripheral) insufficiency Acquired deformity of left toe documented in this [facility] HealthcareHistory general Narrative - Reported* Type Description Date Medical History DIABETES Medical HistoryHTNMedical HistoryASTHMAMedical History3 HEART STENT AND 1 LEG Medical HistoryHYPERLIPIDEMIAMedical HistoryHYPOTHYROIDMedical HistoryPAD Surgical HistorySTENT PLACEMENTSSurgical HistoryPSEUDO ANURYSMSurgical History BLADDER SUSPENSIONSurgical HistoryHYSTERECTOMYSurgical HistoryRLE & RT RENAL DSA'S, ANGIOPLASTIES & [id number] [facility] Other History general Narrative - Reported* Type Description Date Medical History DIABETES Medical HistoryHTNMedical HistoryASTHMAMedical History3 HEART STENT AND 1 LEG Medical HistoryHYPERLIPIDEMIAMedical HistoryHYPOTHYROIDMedical HistoryPAD Surgical HistorySTENT PLACEMENTSSurgical HistoryPSEUDO ANURYSMSurgical History BLADDER SUSPENSIONSurgical HistoryHYSTERECTOMYSurgical HistoryRLE & RT RENAL DSA'S, ANGIOPLASTIES & [id number] HistoryVAGINAL ABLASION OF CANCER CELLS [facility] Other Hospital course Narrative No data available for this section General [facility] Discharge instructions No data available for this section General [facility] [place] [facility] note No data available for this section [facility] [place] Reason for referral (narrative) Referred by: Iliana GAGNON MD Referred by: Iliana GAGNON MD General Surgery [place] Resmet for referral (narrative)* Diagnostic Procedure Only (Routine) - Pending ReviewSpecialtyDiagnoses / ProceduresReferred By ContactReferred To ContactBR IMAGING Diagnoses 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, estrogen receptor positive (HCC) Procedures MAGNO DIAGNOSTIC BILATERAL DIAGNOSTIC MAMMOGRAPHY COMPUTER-AIDED DETCJ Winnie Farris, MARISOL [address] [place] [address] [place] [address] [facility] [address] [place] [address] Referral IDStatusReasonStart DateExpiration DateVisits RequestedVisits [id number] Review Auto-Generated Referral [facility]narrative)No reason for referral information [facility]Ad[facility] Work Phone: Reason for visit Narrative* Auth/CertSpecialty Diagnoses / ProceduresReferred By ContactReferred To Contact Diagnoses Vaginal dysplasia VAGINAL DYSPLASIA Procedures KS OFFICE/OUTPT VISIT,PROCEDURE ONLY KS COMPLETE REMOVAL OF VAGINA WALL KS CYSTOURETHROSCOPY CYSTOSCOPY, VAGINECTOMY Emma Garza MD [address] [facility] [address] [place] [address] [employer] [id number] [place] [address] Referral IDStatusReasonStart DateExpiration DateVisits RequestedVisits [id number] [facility] Phone: Summary Purpose Family History Relationship Condition Age at Onset Recorded Date/T josephine father Unknown motherDeceasedUnknown Advance Directives Code StatusDate ActivatedDate InactivatedCommentsFull Code06/28/2022 6:57 AMType Date RecordedPatient RepresentativeExplanationAdvance Directive(s)01/16/2017 3:59 PMTypeDate RecordedPatient RepresentativeExplanationAdvance Directive(s)01/16/2017 3:59 PMCode StatusDate ActivatedDate InactivatedCommentsFull Code06/28/2022 6:57 AM06/28/2022 2:17 PM Advance Directive Response Recorded Date/ Time Advance Directives No March 20 2:53pm Advance Directive Response Recorded Date/ Time Advance Directives No March 20 1:53pm Reason for Referral StatusReasonSpecialtyDiagnoses / ProceduresReferred By ContactReferred To ContactOpenCardiology Diagnoses Pre-op chest exam Procedures EKG 12 lead Latonia Burks PA-C [address] [place] [address] SpecialtyDiagnoses / ProceduresReferred By ContactReferred To ContactCardiology Diagnoses Pre-op chest exam Procedures EKG 12 lead Latonia Burks PA-C [address] [facility] [address] [place] [address] Referral IDStatusReasonStart DateExpiration DateVisits RequestedVisits [id number] / Procedures Referred By ContactReferred To ContactVascular Surgery Diagnoses Claudication in peripheral vascular disease (HCC) Procedures CONSULT TO VASCULAR SURGERY OFFICE/OUTPATIENT [facility] 60-74 MINUTES Wallace Stone MD [address] [place] [address] Referral IDStatusReasonStart DateExpiration DateVisits RequestedVisits [id number] PCP Requested Referral /[id number] / ProceduresReferred By ContactReferred To ContactDermatology Diagnoses Rash Other eczema Procedures CONSULT TO DERMATOLOGY OFFICE/OUTPATIENT [facility] 60-74 MINUTES Wallace Stone MD [address] [place] [address] Referral IDStatusReasonStart DateExpiration DateVisits RequestedVisits [id number] PCP Requested Referral / Chief Complaint and Reason for Visit Chief Complaint Right Leg Swelling Chief Complaint Open Wound pain bi legs i70.238 i70.248Reason for VisitAltered mental status Diabetes mellitus Edema of both lower legs Inflammation Leg ulcer, left Leg wound, right Open wound of left thigh Uses walker Varicose veins of both legs with edema Chief Complaint pain bi legs i70.238 i70.248 Open WoundReason for VisitAltered mental status Diabetes mellitus Edema of both lower legs Inflammation Leg ulcer, left Leg wound, right Open wound of left thigh PAD (peripheral artery disease) Uses walker Varicose veins of both legs with edema Chief Complaint pain bi legs i70.238 i70.248 Open Wound F/U PADReason for VisitAltered mental status Diabetes mellitus Edema of both lower legs Inflammation Leg ulcer, left Leg wound, right Open wound of left thigh PAD (peripheral artery disease) Uses walker Varicose veins of both legs with edema Chief Complaint Admit Date gout October 29, 2024 1:22pm RA/OA/Gout December 10, 2024 2:10 pm Chief Complaint Admit Date gout October 29, 2024 1:22pm RA/OA/Gout December 10, 2024 2:10 pm rheumatoid arthritis,low back,knee, hip pain January 07, 2025 11:04am Additional Source Comments INFORMATION SOURCE (unrecogn ized section and content) DATE CREATED AUTHOR 02/05/2021 [facility] DATE CREATED AUTHOR AUTHOR'S ORGANIZ ATION 01/22/2023 [facility] DATE CREATED AUTHOR AUTHOR'S ORGANIZ ATION 06/23/2023 [facility] DATE CREATED AUTHOR AUTHOR'S ORGANIZ ATION 07/13/[address] [facility] DATE CREATED AUTHOR AUTHOR'S ORGANIZ ATION 10/10/2024 [facility] DATE CREATED AUTHOR AUTHOR'S ORGANIZ ATION 02/06/2025 [facility] DATE CREATED AUTHOR AUTHOR'S ORGANIZ ATION 06/19/2025 [facility] DATE CREATED AUTHOR AUTHOR'S ORGANIZ ATION 06/21/2025 [facility] Reason for Visit (unrecogniz ed section and content) StatusReasonSpecialtyDiagnoses / ProceduresReferred By ContactReferred To Contact Diagnoses 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 Procedures KS REMOVE VAGINA WALL, PARTIAL KS COLPOSCOPY,CERVIX W/ADJ VAGINA PARTICAL VAGINECTOMY WITH ULTRASONIC SCAPEL VAGINAL COLPOSCOPY WITH MICROSCOPE Kin Abarca MD [address] [facility] [address] [place] [id number] [facility] SpecialtyDiagnoses / ProceduresReferred By ContactReferred To Contact Diagnoses Vaginal dysplasia VAGINAL DYSPLASIA Procedures KS OFFICE/OUTPT VISIT,PROCEDURE ONLY KS DESTRUCT,VAGINAL LESION(S),SIMPLE CO2 LASER VAPORIZATION OF LESIONS (FORT CONF# [id number] - JEREMIAS) Emma Garza MD [address] [facility] [address] [place] [address] [facility] [address] [place] [address] Referral IDStatusReasonStart DateExpiration DateVisits RequestedVisits [id number] CoordinationSurgery updateReasonComments ConsultBreast CancerReasonCommentsBreast CancerReasonCommentsBreast CancerReason CommentsReferral InformationVascular ConsultReasonCommentsBreast Cancer3 month follow upReasonCommentsBreast Cancer4 month follow upReasonCommentsDM Foot Care Dm nail careReasonCommentsPatient QuestionAppointmentOrdersReasonCommentsBreast CancerTOCReasonCommentsDM Foot Care Ordered Prescriptions (unrec ognized section and content) PrescriptionSigDispensedRefillsStart DateEnd Date acetaminophen (TYLENOL) 500 MG tablet Take 2 tablets by mouth every 6 hours as needed for Pain 80 tablet /12/2020 lidocaine (XYLOCAINE) 5 % ointment Apply topically as needed to the affected area. 50 g /rescriptionSigDispensedRefillsStart DateEnd Date HYDROcodone-acetaminophen (NORCO) 5-325 MG per tablet Indications:Post-operative stateTake 1 tablet by mouth every 4 hours as needed for Pain for up to 7 days. Intended supply: 7 days. Take lowest dose possible to manage pain 10 tablet /07/2022 acetaminophen (TYLENOL) 500 MG tablet Take 2 tablets by mouth every 6 hours as needed for Pain 120 tablet /rescriptionSigDispensedRefillsStart DateEnd Date senna-docusate (PERICOLACE) 8.6-50 MG per tablet Take 1 tablet by mouth 2 times daily as needed for Constipation 60 tablet / silver sulfADIAZINE (SILVADENE) 1 % cream Apply topically daily. 25 g bacitracin-polymyxin b (POLYSPORIN) 500-75701 UNIT/GM ointment Apply topically 2 times daily. 15 g / pramoxine HCl (PROCTOFOAM) 1 % foam Apply to hemorrhoids and anal area for postop pain as needed 15 g acetaminophen (TYLENOL) 500 MG tablet Take 2 tablets by mouth every 6 hours as needed for Pain 60 tablet silver sulfADIAZINE (SILVADENE) 1 % cream Apply topically daily. 25 g pramoxine HCl (PROCTOFOAM) 1 % foam Apply to hemorrhoids and anal area for postop pain as needed 15 g bacitracin-polymyxin b (POLYSPORIN) 500-43964 UNIT/GM ointment Apply topically 2 times daily. 15 g senna-docusate (PERICOLACE) 8.6-50 MG per tablet Take 1 tablet by mouth 2 times daily as needed for Constipation 60 tablet acetaminophen (TYLENOL) 500 MG tablet Take 2 tablets by mouth every 6 hours as needed for Pain 60 tablet Scheduled Active and Recently Administ ered Medications (unrecognized section and content) Medication Order// ipratropium-albuterol (DUONEB) nebulizer solution 1 ampule (COMPLETED) 1 ampule, Inhalation, ONCE, On Mon06/15/21 at 0830, For 1 dose * 0838 (Given - Provider: Sukhdev Bailey RN) Medication Order// lactated ringers infusion IntraVENous, at 100 mL/hr, CONTINUOUS, Starting on Mon06/15/21 at 0900, Pre-op (day of surgery) * 0850 (New Bag - Provider: Sukhdev Bailey RN) Medication Order// acetic acid 5 % solution (CANCELED) PRN, Starting on Mon06/15/21 at 0928, Intra-op * 0928 (Given - Provider: Kin Abarca MD - Comment: GIVEN TO BACK TABLE) clindamycin (CLEOCIN) 2 % vaginal cream (CANCELED) PRN, Starting on Mon06/15/21 at 0929, Intra-op * 0929 (Given - Provider: Kin Abarca MD - Comment: GIVEN TO BACK TABLE, THE REST SENT WITH PATIENT) lidocaine (XYLOCAINE) 2 % uro-jet (CANCELED) PRN, Starting on Mon06/15/21 at 0929, Intra-op * 0929 (Given - Provider: Kin Abarca MD - Comment: GIVEN TO BACK TABLE, THE REST SENT WITH PATIENT) sodium chloride 0.9 % irrigation (COMPLETED) CONTINUOUS PRN, Starting on Mon06/15/21 at 0927, Intra-op * 0925 (New Bag - Provider: Kin Abarca MD - Comment: BACK TABLE) * 0927 (New Bag - Provider: Kin Abarca MD - Comment: MISONIX MACHINE) Medication Order12/11////12/2021 sodium chloride flush 0.9 % injection 5-40 mL 5-40 mL, IntraVENous, EVERY 12 HOURS SCHEDULED (2 times per day), First dose on Mon12/13/21 at 1015,Until Discontinued, For Line Patency: Peripheral IV = [...] Central Line = 20 mL/lumen, PACU only * 1015 (Due) * 2100 (Due) sodium chloride flush 0.9 % injection 5-40 mL 5-40 mL, IntraVENous, EVERY 12 HOURS SCHEDULED (2 times per day), First dose on Mon12/13/21 at 2100,Until Discontinued, For Line Patency: Peripheral IV = [...] Central Line = 20 mL/lumen, PACU only * 2100 (Due) Medication Order///12/2021 lactated ringers infusion IntraVENous, at 100 mL/hr, CONTINUOUS, Starting on Mon12/13/21 at 1015, Pre-op (day of surgery) * 1010 (New Bag - Provider: Sukhdev Bailey RN) * 1425 (Paused - Provider: FERNY Mackenzie CRNA - Comment: Switch to gravity) * 1426 (Restarted - Provider: FERNY Mackenzie CRNA) * 1519 (Anesthesia Volume Adjustment - Provider: FERNY Mackenzie CRNA) Medication Order// 0.9 % sodium chloride infusion IntraVENous, at 5-250 mL/hr, PRN, if patient receiving piggyback infusions and maintenance fluids are not ordered OR KVO fluids to protect IV site / prevent frequent line interruptions/ long duration, Starting on Mon12/13/21 at 0956, For piggyback infusion, administer at same rate as piggyback for atotal of 25 mL. Enter 25 mL into [...] administer at same rate as piggyback for atotal of 25 mL. Enter 25 mL into [...] as the IV push. Flush volume is determinedby type of infusion therapy being given. For [...] as the IV push. Flush volume is determinedby type of infusion therapy being given. For non-viscous solutions use: Peripheral IV = 5 mL Midline or Central Line = 10 mL/lumen For viscous solutions (i.e. blood components, parenteral nutrition, contrast media, or after obtaining blood sample) use: Peripheral IV = 10 mL Midline or Central Line = 20 mL/lumen, PACU only Medication Order/ sodium chloride flush 0.9 % injection 5-40 [...] non-viscous solutions use: Peripheral IV = 5 mLMidline or Central Line = 10 mL/lumen For viscous solutions (i.e. blood components, parenteral nutrition, contrast media, or after obtaining blood sample) use: Peripheral IV = 10 mL Midline or Central Line = 20 mL/lumen, PACU only * 1100 (Due) * 2100 (Due) Medication Order/ lactated ringers infusion (CANCELED) IntraVENous, at 125 mL/hr, CONTINUOUS, Starting on Mon06/28/22 at 0915, Pre-op (day of surgery) * 0901 (New Bag - Provider: Jessica Robledo RN) * 0907 (NoRateChange - Provider: FERNY Moses CRNA) * 0941 (Paused - Provider: FERNY Moses CRNA - Comment: Switch to gravity) * 0942 (Restarted - Provider: FERNY Moses CRNA) Medication Order// 0.9 % sodium chloride infusion IntraVENous, at 5-250 mL/hr, PRN, if patient receiving piggyback infusions and maintenance fluids are not ordered OR KVO fluids to protect IV site / prevent frequent line interruptions/ long duration, Starting on Mon06/28/22 at 1039, For piggyback infusion, administer at same rate as piggyback fora total of 25 mL. Enter 25 mL [...] narcotics have been administered in the last 60minutes, do not administer IV narcotics unless specifically [...] PRN, Starting on Mon06/28/22 at 0937, Intra-op * 0937 (New Bag - Provider: Emma Plunkett MD - Comment: BACK TABLE) [...] Perry MD Primary Care Provider Active Start: October 29, 2024 End: October 29, 2024Gemma Davenport ProviderActiveStart: October 29, 2024 End: October 29, 2024 Team Status: Inactive Member Role Status Nila Perry MD Primary Care Provider Active Start: December 10, 2024 End: December 10, 2024Gemma Davenport ProviderActiveStart: December 10, 2024 End: December 10, 2024 Team Status: Active Member Role Status Nila Perry MD Primary Care Provider Active Start: September 08, 2024 Norman German ProviderActiveStart: September 08, 2024 Team Status: Inactive Member Role Status Nila Perry MD Primary Care Provider Active Start: April 09, 2024 End: April 09, 2024Ja Ann ProviderActiveStart: April 09, 2024 End: April 09, 2024 Team Status: Inactive Member Role Status Nila Perry MD Primary Care Provider Active Start: April 24, 2024 End: April 24, 2024Ja Ann ProviderActiveStart: April 24, 2024 End: April 24, 2024 Team Status: Active Member Role Status Nila Perry MD Primary Care Provider Active Start: March 26, 2024 Ja Ann ProviderActiveStart: March 26, 2024 Team MemberRelationshipSpecialtyStart DateEnd Date Mateus Perry MD [address] [place] [facility] [place] [address] PCP - GeneralFamily Medicine03/04/21Team MemberRelationshipSpecialtyStart DateEnd Date Mateus Perry MD [address] [place] [facility] [place] [address] PCP - Generalmi Medicine03/04/21Team MemberRelationshipSpecialtyStart DateEnd Date Mateus Perry MD [address] [place] [facility] [place] [address] PCP - Generalmi Medicine03/04/21Team MemberRelationshipSpecialtyStart DateEnd Date Mateus Perry MD [address] [place] [facility] [place] [address] PCP - GeneralFamily Medicine03/04/21Team MemberRelationshipSpecialtyStart DateEnd Date Mateus Perry MD PCP - GeneralFamily Medicine01/05/17Team MemberRelationshipSpecialtyStart DateEnd Date Mateus Perry MD PCP - GeneralFamily Medicine01/05/17Team MemberRelationshipSpecialtyStart DateEnd Date Mateus Perry MD PCP - GeneralFamily Medicine01/05/17Team MemberRelationshipSpecialtyStart DateEnd Date Mateus Perry MD PCP - [facility]01/05/17Team MemberRelationshipSpecialtyStart DateEnd Date Mateus Perry MD PCP - [facility]01/05/17Team MemberRelationshipSpecialtyStart DateEnd Date Mateus Perry MD PCP - [facility]01/05/17Team MemberRelationshipSpecialtyStart DateEnd Date Mateus Perry MD [address] [place] [address] PCP - [facility]03/04/21 Team Status: Inactive Member Role Status Nila Perry MD Primary Care Provider Active Gemma Draper ProviderActiveTeam MemberRelationship SpecialtyStart DateEnd Date Mateus Perry MD PCP - [facility]01/05/17Team MemberRelationshipSpecialtyStart DateEnd Date Mateus Perry MD PCP - [facility]01/05/17 Team Status: Inactive Member Role Status Nila Perry MD Primary Care Provider Active Start: May 01, 2024 End: May 01, 2024MattGemma Montana ProviderActiveStart: May 01, 2024 End: May 01, 2024Team MemberRelationshipSpecialtyStart DateEnd Date Mateus Perry MD [address] [place] [address] PCP - [facility]02/14/24Team MemberRelationshipSpecialtyStart DateEnd Date Mateus Perry MD [address] [facility] [place] [facility] [place] [address] PCP - Generalmi Medicine02/14/24Team MemberRelationshipSpecialtyStart DateEnd Date Mateus Perry MD [address] [place] [facility] [place] [address] [facility] - [facility]/14/24Team MemberRelationshipSpecialtyStart DateEnd Date Mateus Perry MD [address] [facility] [place] [address] [facility] - [facility]/14/24Team MemberRelationshipSpecialtyStart DateEnd Date Mateus Perry MD PCP - Generalmily Medicine01/05/17Team MemberRelationshipSpecialtyStart DateEnd Date Mateus Perry MD PCP - Generalmily Medicine01/05/17Team MemberRelationshipSpecialtyStart DateEnd Date Mateus Perry MD PCP - Generalmily Medicine01/05/17Team MemberRelationshipSpecialtyStart DateEnd Date Mateus Perry MD [address] [facility] [place] [address] [facility]02/14/24 Team Status: Inactive Member Role Status Nila Perry MD Primary Care Provider Active Start: January 07, 2025 End: January 07, 2025Mattmonty Mcdonnell MDAttraghav ProviderActiveStart: January 07, 2025 End: January 07, 2025 Team Status: Inactive Member Role Status Dates Mateus Perry MD Primary Care Provider Active Start: June 03, 2025 End: June 03, 2025Mamaximo Mcdonnell MDAttending ProviderActiveStart: June 03, 2025 End: June 03, 2025 Source Comments (unrecognize d section and content) In the event this informatio n is protected by the Federal Confidentiality of Alcohol and Drug Abuse Patient Records regulations: The Federal rules restrict any use of the information to criminally investigate or prosecute any alcohol or drug abuse patient.[facility] CenterIn the event this information is protected by the Federal Confidentiality of Alcohol and Drug Abuse Patient Records regulations: The Federal rules restrict any use of the information to criminally investigate or prosecute any alcohol or drug abuse patient.[facility] CenterIn the event this information is protected by the Federal Confidentiality of Alcohol and Drug Abuse Patient Records regulations: The Federal rules restrict any use of the information to criminally investigate or prosecute any alcohol or drug abuse patient.[facility] CenterIn the event this information is protected by the Federal Confidentiality of Alcohol and Drug Abuse Patient Records regulations: The Federal rules restrict any use of the information to criminally investigate or prosecute any alcohol or drug abuse patient.[facility] CenterIn the event this information is protected by the Federal Confidentiality of Alcohol and Drug Abuse Patient Records regulations: The Federal rules restrict any use of the information to criminally investigate or prosecute any alcohol or drug abuse patient.[facility] CenterIn the event this information is protected by the Federal Confidentiality of Alcohol and Drug Abuse Patient Records regulations: The Federal rules restrict any use of the information to criminally investigate or prosecute any alcohol or drug abuse patient.[facility] CenterIn the event this information is protected by the Federal Confidentiality of Alcohol and Drug Abuse Patient Records regulations: The Federal rules restrict any use of the information to criminally investigate or prosecute any alcohol or drug abuse patient.[facility] CenterIn the event this information is protected by the Federal Confidentiality of Alcohol and Drug Abuse Patient Records regulations: The Federal rules restrict any use of the information to criminally investigate or prosecute any alcohol or drug abuse patient.[facility] CenterIn the event this information is protected by the Federal Confidentiality of Alcohol and Drug Abuse Patient Records regulations: The Federal rules restrict any use of the information to criminally investigate or prosecute any alcohol or drug abuse patient.[facility] CenterIn the event this information is protected by the Federal Confidentiality of Alcohol and Drug Abuse Patient Records regulations: The Federal rules restrict any use of the information to criminally investigate or prosecute any alcohol or drug abuse patient.[facility] CenterIn the event this information is protected by the Federal Confidentiality of Alcohol and Drug Abuse Patient Records regulations: The Federal rules restrict any use of the information to criminally investigate or prosecute any alcohol or drug abuse patient.[facility] Goals (unrecognized section and content) [...] BE BASED ON THE PRIMARY CLINICAL RECORDS. [facility]. provides no warranty or guarantee of the accuracy or completeness of information in this document.
== END 2025-07-04 11:20 | disposition home or self-care (01) ==
LOC: RAD 11:21
PROVIDERS: PCP Family Medicine; Visit Provider Family Medicine
DX: M54.9 Dorsalgia, unspecified (principal); M85.88 Other specified disorders of bone density and structure, other site; M51.369 Other intervertebral disc degeneration, lumbar region without mention of lumbar back pain or lower extremity pain
CPT/HCPCS: 72110; 73523; 73562

== ENCOUNTER 2025-07-21 13:42 | Outpatient (OUT) | payer MEDICARE, OTHER, SELFPAY ==
--- OUTSIDE RECORDS SUMMARY | 2025-07-14 06:54 | XMS_ITS | Continuity of Care Document ---
Author Organization [facility] Address [address] [place] [address] Phone Care Team Providers Care Search Marketing Specialist Name Role Phone Gil Perry MD Primary Care Provider Christiano Mcdonnell MD Attending Provider [phone] Mor Cutler DO Attending Provider [phone] Care Teams Patient Care Team Team Status: Active Member Role/Relationship Status Dates Gil Perry MD Primary Care Provider Active Visit Care Team Team Status: Inactive Member Role/Relationship Status Dates Gil Perry MD Primary Care Provider Active Start: June 03, 2025 End: June 03, 2025OnittGemma Kuhn ProviderActiveStart: June 03, 2025 End: June 03, 2025 Patient Care Team Team Status: Inactive Member Role/Relationship Status Dates Gil Perry MD Primary Care Provider Active Start: July 14, 2025 End: July 14, 2025Jujudy Cutler DOAttraghav ProviderActiveStart: July 14, 2025 End: July 14, 2025 Chief Complaint and Reason for Visit Chief Complaint Admit Date RA OA GOUT MEDS June 03, 2025 12:54pm [facility] CONSULT [facility] PERRY DAVID HIP PAIN WX [facility] N ovember 3rd, 2025 10:55am Reason for Visit Admit Date Osteoarthritis of right hip July 10:55am Allergies, Adverse Reactions, Alerts Allergen Type Severity Reaction Last Updated Verified Status ciprofloxacin Allergy Unknown Hives July 14, 2025 11:10am Yes Active oxycodone Allergy Unknown Rash July 14, 2025 11:10am Yes Active acetaminophen Allergy Unknown Rash July 14, 2025 11:10am Yes Active cefdinir Allergy Unknown Vomiting July 14, 2025 11:10am Yes Active Social History Smoking Status Status Start Date End Date Date of Observa tion Ex-smoker (finding) April 24, 2024 11:13am Observation Status Observation Response Date of Response Legal Sex Female (finding) [facility] 1940 Family History Relationship Condition Age at Onset Recorded Date/T josephine father Unknown motherDeceasedUnknown Problems Active Problems Problem Diagnosis/Recorded Date Onset Date Status C omments Leg ulcer, left December 11, 2023 8:13am Unknown Active Edema of both lower legsApril 2023 8:29amUnknownActiveOpen wound of left thighMay 2023 9:43amUnknownActiveDiabetes mellitusAugust 2018 9:33am UnknownActiveProblem List clean-up per request of Phys. EHR CmteOsteoarthritis of right hipJuly 14, 2025 11:43amUnknownActiveVaricose veins of both legs with edemaApril 2023 8:29amUnknownActiveInflammationApril 2023 8:29am UnknownActivePAD (peripheral artery disease)April 25, 2019 9:34amUnknown ActiveProblem List clean-up per request of Phys. EHR CmteAltered mental status February 13, 2024 9:53amUnknownActiveUses walkerApril 2023 8:29amUnknownActive Leg wound, rightJune 2023 9:53amUnknownActive Medications Medication Status Dose Units Route Directions Qty Days Refills S tart Date Stop Date End Date Reason(s) Instructions Adherence Metformin 500 mg Tablet Active 500 MG PO Twice da efe April 24, 2019 11:00pmComplies with drug therapyAlbuterol Sulfate 2.5 mg /3 mL (0.083 %) Solution For NebulizationActive1.25MGINHALATIONEVERY 4-6 HOURS as needed for Shortness Of BreathAugust 2018 11:00pmComplies with drug therapyMetoprolol Succinate 200 mg Tablet Extended Release 24 SoNlyutu253STQW DailyAugust 2018 11:00pmComplies with drug therapyAspirin (Chang Low Dose Aspirin) 81 mg Tablet,Delayed Release (Dr/Ec)Rvnpcm06YUOZDjfqbGttasb 14th, 2019 11:00pmComplies with drug therapyIsosorbide Mononitrate 60 mg Tablet Extended Release 24 NcLkoyja751UMPHUvwuqQxmsti 2018 11:00pmComplies with drug therapyCitalopram 20 mg DduzlkUmkvjaufuagp34EWRXVlkdkBoyvfs 14th, 2019 11:00pm November 29, 2022 8:23amAmlodipine 10 mg LvonyyWeblji7NAVGHspjkEyoccx 14th, 2019 11:00pmUnknownHydralazine 100 mg AascxzTwtitk642FYSZDmlbl times dailyAugust 2018 11:00pmComplies with drug therapySimvastatin 20 mg IarcuoWcvbxy91ARQK Every eveningAugust 2018 11:00pmComplies with drug therapyGlimepiride 4 mg XvakpyBmudzpsurxwb2SLAUEubln dailyc[facility]2018 11:[facility]pm[facility] 2024 11:08amAlbuterol Sulfate (Ventolin Hfa) 90 mcg/actuation Hfa Aerosol Inhaler Pepqys6OYMTHLSOXFHRNBR6Z as needed for Shortness Of BreathAugust 2018 11:00pmComplies with drug therapyLevothyroxine 112 mcg YcrthiRbdmkg690FBYYXQsydv April 24, 2019 11:00pmComplies with drug therapyHydrochlorothiazide 12.5 mg HrdsbyKkobdajojgqq06.5MGPODailygus2018 11:00pm[facility] 20[facility] 8:20am Cetirizine (Zyrtec) 10 mg LznemhlQztcctxuyhit8JCXAGPtdxd dailyCent[facility]2018 11:00pm[facility] 20[facility] 8:23amApixaban (Eliquis) 5 mg PfackaLxycqc5PSLQUqapa dailyR[place] 2018 11:00pmComplies with drug dxbaysmFmpqo-1g-Ttz-Epa-Fish Oil ([place]-3 Fish Oil) 300-1,000 mg IlxvrbzHzoktm6YTUNAUnqoh dailyRiver [place] 2018 11:00pmComplies with drug therapyFurosemide 40 mg NbytmsEdyktf83EWDGI7X November 28, 2022 11:00pmComplies with drug therapyAnastrozole 1 mg tabletActive1 MGPODailyProvidence Hospital 2022 11:00pmComplies with drug therapyMeloxicam 15 mg sgfqkiDevlamtpjbzi93IZRUYmxcvToriz 2022 11:00pmApril 2023 8:24am Sucralfate 1 gram jdmkhbIeyhjn9KOTFKnacni meals and at bedtimeProvidence Hospital 2022 11:00pmComplies with drug therapyLiothyronine 5 mcg mceqwmPmdppr4OAZDRByaqrAzdvs 2022 11:00pmComplies with drug therapyNitrofurantoin 25 mg/5 mL Suspension Frmejeztgtdk67WZLDFcso times dailyProv[facility] Hospital 2022 11:00pmApril 2023 8:25am must administer with a meal/foodCholecalciferol (Vitamin D3) (Vitamin D3) 125 mcg (5,000 unit) ElnszeGzwyep345WVXJPHgemyOffqh 2022 11:00pmComplies with drug therapySpironolactone (Aldactone) 50 mg mcdmcrIhpoeu74INTPSccvgHbiix 2023 11:00pmComplies with drug therapyFebuxostat 40 mg kfnwglWfcqah02SZQSTphhs December 10, 2023 11:00pmComplies with drug therapyFerrous Sulfate (Feosol) 325 mg (65 mg iron) sestlnGjcoeg677CXAYTxzih dailyProvidence Hospital 2023 11:00pmComplies with drug therapyEmpagliflozin (Jardiance) 10 mg kiubzuSgeybidiswyf13ZSSQIgttp December 10, 2023 11:00pmNovunited states air [facility] 2024 11:08amInsulin Glargine (Lantus Solostar U-100 Insulin) 100 unit/mL (3 mL) insulin hvbEejcrr49XJOTNXNGKGPewhv eveningMar2023 11:00pmComplies with drug therapyInsulin Lispro (Humalog U-100 Insulin) 100 unit/mL peesknacAmwuxt8hzmndcd scale doseSUBCUTAs Directed December 10, 2023 11:00pmComplies with drug therapyAmoxicillin-Pot Clavulanate 875-125 mg tabletDiscontinuedTABPODailyJune 2023 11:00pmNovember 2024 11:07amPotassium Chloride 10 mEq tablet extended releaseActiveMEQPONovember 2024 12:00amComplies with drug therapyTramadol 50 mg onjfknKhzbif83BBZQQvbaz July 14, 2025 12:00amComplies with drug therapyGabapentin 100 mg capsule ActiveMGPONovemb2024 12:00amComplies with drug therapy Medical Equipment Device Date Implanted Device Details IR STENT BLUE 6 X 12 80CM April 25, 2019 IR STENT SMART 6 X 120 120CMAugust 2018IR STENT SMART 6 X 40 120CMAugust 2018 Relevant Diagnostic Tests and/or Laboratory Data Laboratory Results Test Collection Date/Time Result Date/Time Result Interpretation Reference Range Result Comment Performing Site Corrected White Blood Count June 03, 2025 11:58am June 03, 2025 3:27pm 7.9 10*3/uL 3.8-11.6[facility] [id number] [address] [facility] [address]Pceftdqneai WBC CountSeptember 2024 11:58amSeptember 2024 3:27pm7.9 10*3/uL3.8-11.[address] [place] [address] Ctr [id number] [address] [facility] [address]Cqe Blood CountSeptember 2024 11:58amSeptember 2024 3:27pm3.73 10*6/uL3.60-5.00[facility] [id number] [address] [facility] 285[address]AzvyhbzteeAjbhpwjmm 2024 11:58amSeptember 2024 3:27pm11.9 g/dL11.8-15.4[facility] [id number] [address] [facility] 74[address]RgftpbqqnmHobzfubkj 2024 11:58amSeptember 2024 3:27pm35.7 %34.0-46.4FL[facility] [id number] [address] [facility] [address]Ysix Corpuscular VolumeSeptember 2024 11:58amSeptember 2024 3:27pm95.9 rY66-839CvpeiqkyfDayton Osteopathic Hospital [facility] [id number] [address] [facility] [address]Cysg Corpuscular HemoglobinSeptember 2024 11:58am June 03, 2025 3:27pm31.8 pg24.7-34.3FL[facility] [id number] [address] [facility] [address]Fhos Corpuscular Hemoglobin ConcentSeptember 2024 11:58am June 03, 2025 3:27pm33.2 g/dL32.0-35.0[facility] [id number] [address] [place] [address]Fyt Cell Distribution WidthSeptember 2024 11:58am June 03, 2025 3:27pm15.4 %Above high .9-15.3[facility] [id number] [address] [facility] [address]Uaonorip CountSeptember 2024 11:58amSeptember 2024 3:79ry043 10*3/cU949-176LwosvrxjmDayton [facility] [id number] [address] [place] [address]Twmg Platelet VolumeSeptember 2024 11:58amSeptember 2024 3:27pm8.3 fL6.3-10.7[facility] [id number] [address] [facility] [address]Ctcnzrnkrbt (%) (Auto)June 03, 2025 11:58amSeptember 2024 3:27pm54.5 %.[facility] [id number] [address] [facility] [address]Rdecrelcwkb (%) (Auto)June 03, 2025 11:58amSeptember 2024 3:27pm29.2 %.[facility] [id number] [address] [facility] [address]Femlunjeh (%) (Auto)June 03, 2025 11:58amSeptember 2024 3:27pm7.5 %.[facility] [id number] [address] [facility] [address]Coeajvbagmm (%) (Auto)June 03, 2025 11:58amSeptember 2024 3:27pm7.9 %.[facility] [id number] [address] [facility] 90[address]Qneoeydta (%) (Auto)June 03, 2025 11:58amSeptember 2024 3:27pm0.9 %.[facility] [id number] [address] [facility] [address]Guqcnrncj RBC Relative Count (auto)June 03, 2025 11:58am June 03, 2025 3:27pm0.1 /100{WBC}0-0.5[facility] [id number] [address] [facility] [address]Yydettahofu # (Auto)June 03, 2025 11:58amSeptember 2024 3:27pm4.3 10*3/uL1.8-7.7[facility] [id number] [address] [facility] 72020Lstdpsxfpgp # (Auto)June 03, 2025 11:58amSeptember 2024 3:27pm2.3 10*3/uL1.00-4.8[facility] [id number] [address] [facility] [address]Gcpfcpnog # (Auto)June 03, 2025 11:58amSeptember 2024 3:27pm0.6 10*3/uL0.0-0.8[facility] [id number] [address] [facility] [address]2565Xnfnwzvmlyp # (Auto)June 03, 2025 11:58amSeptember 2024 3:27pm0.6 10*3/uLAbove high normal0.0-0.45[facility] [id number] [address] [facility] [address]Bjqopmxlp # (Auto)June 03, 2025 11:58amSeptember 2024 3:27pm0.1 10*3/uL0.0-0.2[facility] [id number] [address] [facility] [address]30[address]Nwhgzriypxe Sedimentation RateSeptember 2024 11:58am June 03, 2025 3:50pm61 mm/hrAbove high normal0-29[facility] [id number] [address] [facility] 25693Rjspkyj LevelSeptember 2024 11:58amSeptember 2024 3:64pz129 mg/dLAbove high dgnyxd25-372JOG recommended reference rangeRandom Glucose Reference Range is dependent on time and content of last meal. Glucose of more than 200 mg/dL in a nonstressed, ambulatory subject supports the diagnosisof Diabetes Mellitus.[facility] [id number] [address] [facility] [address]Afygx Urea NitrogenSeptember 2024 11:58amSeptember 2024 3:44pm23 mg/dL7-25[facility] [id number] [address] [place] [address] 39[address]UokbgoxkqpImezdqgbx 2024 11:58amSeptember 2024 3:44pm1.38 mg/dLAbove high normal0.60-1.20[facility] [id number] [address] [facility] 129[address]Bibghjbnc GFR (CKD-EPI)June 03, 2025 11:58amSeptember 2024 3:44pm38.217 mL/MinDayton Osteopathic Hospital [facility]tr [id number] [address] [facility] [address]Uumnsy LevelSeptember 2024 11:58amSeptember 2024 3:70gp940 mmol/X960-426PckgggainDayton Osteopathic Hospital [facility] [id number] [address] [facility] 185[address]Vegzeqygk LevelSeptember 2024 11:58amSeptember 2024 3:44pm4.3 mmol/L3.5-5.1Hemolysis is present at a level that could interfere with the result.Contact lab if redraw is requiredDayton Osteopathic Hospital [facility]tr [id number] [address] [facility] [address]291Zesapvbv LevelSeptember 2024 11:58amSeptember 2024 3:44pm98 mmol/E67-171MvvrtaqmbDayton Osteopathic Hospital [facility] [id number] [address] [facility] 395[address]Iwdywm Dioxide LevelSeptember 2024 11:58amSeptember 2024 3:44pm33.6 mmol/LAbove high .0-31.0[facility] [id number] [address] [facility] [address]Wfliq GapSeptember 2024 11:58amSeptember 2024 3:44pm11.7 mEq/L6.0-15.0[facility] [id number] [address] [facility] [address]Boqbdsj LevelSeptember 2024 11:58amSeptember 2024 3:44pm9.4 mg/dL8.6-10.3[facility] [id number] [address] [facility] [address]Cncwz ProteinSeptember 2024 11:58amSeptember 2024 3:44pm6.5 g/dL6.4-8.9[facility] [id number] [address] [facility] 98041GvmnivnIbpjxhvso 2024 11:58amSeptember 2024 3:44pm 3.5 g/dL3.5-5.7[facility] [id number] [address] [place] [address] 65385ZyqvvfkdEtulycpmq 2024 11:58amSeptember 2024 3:44pm 3.0 g/dLDayton Osteopathic Hospital Ctr [id number] [address] [place] [address] 85069Nppntss/Globulin RatioSeptember 2024 11:58amSeptember 2024 3:44pm1.2FL[facility] [id number] [address] [facility] [address]Uolaz BilirubinSeptember 2024 11:58amSeptember 2024 3:44pm0.3 mg/dL0.3-1.0[facility] [id number] [address] [facility] 615[address]Rzutdawyt Amino Transf (AST/SGOT)June 03, 2025 11:58am June 03, 2025 3:44pm16 U/A64-00LwhtvvlhdDayton Osteopathic Hospital [facility] [id number] [address] [facility] 79821Tylvtkz Aminotransferase (ALT/SGPT)June 03, 2025 11:58am June 03, 2025 3:44pm13 U/L7-52[facility] [id number] [address] [facility] [address]Jelgmejp PhosphataseSeptember 2024 11:58amSeptember 2024 3:31eg235 U/LAbove high lhjyvu39-399SwwykamlwDayton Osteopathic Hospital [facility] [id number] [address] [facility] 892[address]Ngks AcidSeptember 2024 11:58amSeptember 2024 3:44pm3.1 mg/dL2.3-6.6[facility] [id number] [address] [place] [address] 50[address]Grkuwurb Creatinine Clearance (ChemSeptember 2024 11:58am June 03, 2025 3:44pmN/AFLicking Memorial Hospital [facility] [id number] [address] [place] [address] Vital Signs Vital Reading Result Reference Range Collection Date/Time Height 60 [in_i] July 14, 2025 11:14byOkminc44.42 kgJuly 14, 2025 11:06amBMI (Body Mass Index)25.5 kg/m2EhclfmdoJuly 14, 2025 11:06am Advance Directives Advance Directive Response Recorded Date/ Time Advance Directives No March 20 1:53pm Insurance Providers Guarantor Harman Horta Address [address] [place] [id number] Info.Home Phone: Coverage Status Update:2025 Payer Group Member ID Coverage Type Subscriber Relationship to Subscriber Effective Date Expiration Date Medicare [id number] L Fleming Id: [id number] [facility] [address] Home Phone: Email: declined 19SelfMed[employer] Outpatient Id: BRYCE [id number] Encounters Encounter Location(s) Arrival/Admit Date Discharge/Departure Date Discharge/Departure Disposition Provider(s) Departed Clinical -Lab [address] June 03, 2025 12:54pm June 03, 2025 12:55pm Discharged to home care or self care (routine discharge) Christiano Mcdonnell MD Departed Physician/ Provider Office Visit -[facility] [place] July 14, 2025 10:55am July 14, 2025 11:52am Discharged to home care or self care (routine discharge) Mor Cutler , Recent Diagnosis Onset Date Admit Date Osteoarthritis of right hip Unknown [facility] 2024 10:55am Assessments Diagnosis Onset Date Resolution Status Admit Date Osteoarthritis of right hip acuteNov2024 10:55am Plan of Treatment Author [facility] 11:48amDiscussed with patient and company on the patient's symptoms, exam, and imaging. Likely etiologies of the patient's symptoms were discussed. Patient has symptoms consistent with right hip osteoarthritis. We discussed the importance of maintaining a good nutritional diet, including adequate protein intake. We discussed various treatment options. At this point we will pursue conservative management in the form of scheduling a right hip injection under fluoroscopy with Dr. Farmer. We will also continue formal physical therapy. Patient will follow- up in [6 to 8 weeks] for reevaluation. Future Tests Future scheduled test information is unavailable Pending Tests Pending diagnostic test information is unavailable Future Visits Future appointment information is unavailable Future Procedures Future procedure information is unavailable Future Medications Future medication information is unavailable Patient Instructions Patient instructions are unavailable
--- OUTSIDE RECORDS SUMMARY | 2025-07-14 07:30 | XMS_ITS | Encounter Summary ---
Author Organization [facility] Address [address] [place] [address] Care Team Providers Care Instrumental Music Teacher Name Role Phone Gil Blake MD Primary Care Provider [phone] Encounter Details DateTypeDepartmentCare Team (Latest Contact Info)Ifkyimahlxi80/03/2025 7:[address] [facility] [address] [place] [phone] Pre-operative cardiovascular examination, ICD in place Social History Tobacco UseTypesPacks/DayYears UsedDateSmoking Tobacco: FormerCigarettesPassive Smoke Exposure: PastSmokeless Tobacco: NeverAlcohol UseStandard Drinks/Week CommentsNot Currently0 (1 standard drink = 0.6 oz pure alcohol)Humiliation, Afraid, Rape, and Kick questionnaireAnswerDate RecordedWithin the last year, have you been afraid of your partner or ex-partner?No09/12/2024Within the last year, have you been humiliated or emotionally abused in other ways by your partner or ex-partner?No09/12/2024Within the last year, have you been kicked, hit, slapped, or otherwise physically hurt by your partner or ex-partner?No 09/12/2024Within the last year, have you been raped or forced to have any kind of sexual activity by your partner or ex-partner?No09/12/2024PHQ-2AnswerDate RecordedPatient Health Questionnaire-2 Hzobc688UT Safety & Environment AnswerDate RecordedFear of Current or Ex-PartnerNot on file11/02/2023Emotionally AbusedNot on file11/02/2023hysically AbusedNot on file11/02/2023Sexually Abused Not on file11/02/2023hysically or Sexually AbusedNot on file11/02/2023 TransportationAnswerDate RecordedIn the past 12 months, has lack of transportation kept you from medical appointments or from getting medications?No 09/12/2024In the past 12 months, has lack of transportation kept you from meetings, work, or from getting things needed for daily living?No09/12/2024 Housing Stability Vital SignAnswerDate RecordedIn the last 12 months, was there a time when you were not able to pay the mortgage or rent on time?No09/12/2024In the past 12 months, how many times have you moved where you were living?1 09/12/2024t any time in the past 12 months, were you homeless or living in a usp (including now)?No09/12/2024Hunger Vital SignAnswerDate RecordedWithin the past 12 months, you worried that your food would run out before you got the money to buymore.Never true09/12/2024Within the past 12 months, the food you bought just didn't last and you didn't have money to get more.Never true 09/12/2024CommentsNoSex and Gender InformationValueDate RecordedSex Assigned at EvqstOsxizu70/08/2025 9:20 PM EDTLegal DxsTndhqg75/29/2022 10:03 PM EDTGender IdentityChoose not to /08/2025 9:20 PM EDTSexual Orientation Choose not to yuyhmqla44/08/2025 9:20 PM EDTdocumented as of this encounter Plan of Treatment DateTypeDepartmentCare Team (Latest Contact Info)Rzmglubvjce71/25/2025 1:[address] [facility] [place] [address] [place] [address] Brian Potter MD [address] [place] [address] documented as of this encounter Procedures Procedure NamePriorityDate/TimeAssociated DiagnosisCommentsCARDIAC DEVICE CHECK CHECK - BFUUSXPkgupqg26/03/2025 1:09 PM EST Pre-operative cardiovascular examination, ICD in place documented in this encounter Results * CARDIAC DEVICE CHECK - REMOTE - ICD (07/14/2025 1:09 PM EST)Specimen (Source) Anatomical Location / LateralityCollection Method / VolumeCollection Time Received Time Narrative Authorizing ProviderResult TypeResult StatusPaul [facility] MDCV IMPLANTABLE CARDIAC DEVICE PROCEDURESFinal ResultPerforming OrganizationAddressCity/State/ZIP Code Phone Number CPACS documented in this encounter Visit Diagnoses Diagnosis Pre-operative cardiovascular examination, ICD in place Pre-operative cardiovascular examination documented in this encounter Care Teams Team MemberRelationshipSpecialtyStart DateEnd Date Gil Blake MD [address] [place] [address] PCP - General09/16/22documented as of this encounter
--- OUTSIDE RECORDS SUMMARY | 2025-07-21 13:46 | XMS_ITS ---
Author Organization [facility] Address [address] [place] [address] Care Team Providers Care Member Services Representative Name Role Phone Gil Blake MD Primary Care Provider [phone] Active Problems ProblemNoted DateDiagnosed RjmnHusmhjadn94/06/2024Primary wycttkyadect02/06/2024 LBBB (left bundle branch block)4Paroxysmal atrial fibrillation 07/17/2024Longstanding persistent atrial artabldndhdp23/22/2024cute combined systolic and diastolic heart awljouz1307/02/2024ltered mental cuyozn1506/12/2024 Edema of both lower legs06/12/2024Leg ulcer, left06/12/2024Leg wound, right 06/12/2024Open wound of left thigh06/12/2024Uses gpmyvx8506/12/2024Varicose veins of both legs with edema06/12/2024Stage 3a chronic kidney wdhwjmi08/06/2023DM type 2 (diabetes mellitus, type 2)09/13/2022Vaginal yjxcaoouj29/03/2023Vaginal intraepithelial neoplasia III (VAIN III)09/13/2022Vulvar intraepithelial neoplasia (VIVEK) grade 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 She has returned home from long term facility and presents today with granddaughter who [...] prevent rehospitalization forheart failure exacerbation Brain stem ficfcxm1809/13/2022reast cancer of upper-outer quadrant of right female ugqnuw4509/13/2022ervical disc gybzeeo1909/13/2022hronic anticoagulation 09/13/2022hronic low back pain09/13/2022hronic obstructive pulmonary disease 6134Fbidtzvrhuytdj78/03/3492Oqhwq49/03/2023Invasive ductal carcinoma of right wadnve5409/13/20229185Ptiuebsjqw08/03/2023seudoaneurysm of femoral artery 09/13/2022ure yjpnitzxheffichfxion50/03/2023Rectal rnsqatvy79/03/2023Stage 2 chronic kidney unymmtt0709/13/2022ostoperative state2Chronic diastolic heart /09/1681Spdbits55/08/2022HGSIL Pap smear of rhivez9304/13/2021VAIN II (vaginal intraepithelial neoplasia grade II)10/13/2017 Overview (09/13/2022): Added automatically from request for surgery [id number] Atherosclerosis of [place] coronary artery of [place] devil heart without angina kzhxfzov31/08/2017 Assessment & Plan (05/27/2024 12:48 PM EDT): [...] exercise as tolerated and continue all medications. Zkqvuakhocrz65/08/2017 Assessment & Plan (05/27/2024 12:56 PM EDT): As above S/P coronary artery stent /08/2017 Assessment & Plan (05/27/2024 12:57 PM EDT): Remains on ASA No c/o angina or concerns Moderate smoker (20 or less per day)01/16/2017Angina kxhrsgyi63/12/2012 Gastroesophageal reflux xbmilga2012/22/20110255Rwhrelcknmwkln96/12/2012 Assessment & Plan (05/27/2024 12:54 PM EDT): Lipid abnormalities are elevated therefore will increase zocor to 40 mg daily. Will repeat lipid level and liver function in 2-3 months Bjhvhbuajgoupe03/12/2012enign hypertensive cardiomyopathy with heart failure 12/22/2011 Assessment [...] DoseAutomatic EntryManual EntryFluoro Time17.9 minutes0 .9 minutesAir Svecv754 mGy0 wWq997 mGyDose Area Eaptdcl36,940 mGy-cm2 0 mGy-cm247,940 mGy-cm2 Resolved Problems ProblemNoted DateDiagnosed DateResolved DateBMI 36.0-36.9,adult09/13/2022 07/17/2024aroxysmal atrial bmhbryyqtcwr04 Assessment & Plan (05/27/2024 12:56 PM EDT): LZH1RR2-KYVo= 6-7 at least with Age, Sex, CHF, CAD/Vascular disease, HTN, DM Currently per assessment she appears to be in rhythm heart rate well-controlled with metoprolol 200mg daily and she remains on Eliquis anticoagulation without any bleeding tendencies or concerns.
--- OUTSIDE RECORDS SUMMARY | 2025-07-21 13:46 | XMS_ITS | Clinical Summary ---
Author Organization [facility] Address [address] [place] [address] Care Team Providers Care Scrap Drop Engineer Name Role Phone Gil Blake MD Primary Care Provider [phone] Allergies Active AllergyReactionsCriticalityNoted FdwwEegqtlxbSxlasqxiGxzhg17/03/2023 CiprofloxacinHives,MxmunTitr17/19/2018 Other reaction(s): Other: See Comments tendon issues tendon issues RbdpkdkodCyfkDql95/15/2019 Rash & GI upset Oxycodone-GwanxlevwfwnvMvshqMyj78/21/2013 GI upset & rash BvjoofziMglru61/30/2024 Medications MedicationSigDispense QuantityRefillsLast FilledStart DateEnd DateStatus albuterol 2.5 mg /3 mL (0.083 %) nebulizer solution USE 1 VIAL IN NEBULIZER 4 TIMES DAILY NBDUGN3503/26/2022ctive aspirin 81 mg EC tablet Take 81 mg by mouth.Active fish oil concentrate ([place]-3) 120-180 mg capsule Take 1,000 mg by mouth.Active furosemide (Lasix) 40 mg tablet Take 40 mg by mouth in the morning.07/16/2022ctive glimepiride (Amaryl) 4 mg tablet Take 4 mg by mouth in the morning and at bedtime.07/16/2022ctive hydrALAZINE (Apresoline) 100 mg tablet Take 100 mg by mouth if needed in the morning, at noon, and at bedtime. For SBP >10654/ctive isosorbide mononitrate ER (Imdur) 60 mg 24 [...] 90 tablet 5Active Active Problems ProblemNoted DateDiagnosed UghfYomapqlxg59/06/2024rimary fgfyazymuxvi07/06/2024 LBBB (left bundle branch block)07/17/2024aroxysmal atrial fibrillation 07/17/2024Longstanding persistent atrial lhpvwbzbydly24/22/2024cute combined systolic and diastolic heart iwiqsis1407/02/2024ltered mental bgmxrh5106/12/2024 Edema of both lower legs06/12/2024Leg ulcer, left06/12/2024Leg wound, right 06/12/2024Open wound of left thigh06/12/2024Uses hwkuyq9806/12/2024Varicose veins of both legs with edema06/12/2024Stage 3a chronic kidney dafwaiy4002/14/2023M type 2 (diabetes mellitus, type 2)09/13/2022Vaginal ywvrqeuaa38/03/2023Vaginal intraepithelial neoplasia III (VAIN III)09/13/2022Vulvar intraepithelial neoplasia (VIVEK) grade 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, NYHA class Assessment & Plan (05/27/2024 12:51 PM EDT): Congestive heart failure is stable without worsening symptoms [facility] II -currently patient is euvolemic [...] prevent rehospitalization forheart failure exacerbation Brain stem yqzdxlh2009/13/2022reast cancer of upper-outer quadrant of right female xqlpfz8609/13/2022ervical disc ysvfxpe3109/13/2022hronic anticoagulation 09/13/2022hronic low back pain09/13/2022hronic obstructive pulmonary disease 09/13/20224683Ohxswzpporwgco53/03/7344Lqckx95/03/2023Invasive ductal carcinoma of right idtuiw1309/13/20225541Xqvltzrdjg06/03/2023seudoaneurysm of femoral artery 3Pure jenhlmjobjarnsooajpt64/03/2023Rectal ldaagdjn27/03/2023Stage 2 chronic kidney cuowovr0209/13/2022ostoperative state2Chronic diastolic heart ifjttqx7604/19/20227920Keeubnf86/08/2022HGSIL Pap smear of ofyfkd9104/13/2021VAIN II (vaginal intraepithelial neoplasia grade II)10/13/2017 Overview (09/13/2022): Added automatically from request for surgery [id number] Atherosclerosis of [place] coronary artery of [place] heart without angina bwaiqjwy17/08/2017 Assessment & Plan (05/27/2024 12:48 PM EDT): [...] exercise as tolerated and continue all medications. Ewvyqvxmljtv70/08/2017 Assessment & Plan (05/27/2024 12:56 PM EDT): As above S/P coronary artery stent mrjoloysg70/08/2017 Assessment & Plan (05/27/2024 12:57 PM EDT): Remains on ASA No c/o angina or concerns Moderate smoker (20 or less per day)01/16/2017Angina /12/2012 Gastroesophageal reflux hyxensq9812/22/20115303Beaemxpumcitdv70/12/2012 Assessment & Plan (05/27/2024 12:54 PM EDT): Lipid abnormalities are elevated therefore will increase zocor to 40 mg daily. Will repeat lipid level and liver function in 2-3 months Xutzivenufmvla56/12/2012enign hypertensive cardiomyopathy with heart failure 12/22/2011 Assessment & Plan (05/27/2024 12:49 PM EDT): Hypertension currently is well-controlled at 106/67 Continue amlodipine, hydralazine, Imdur, Toprol and spironolactone Currently renal function normal, no acute concerns. Tobacco user12/22/2011 Resolved Problems ProblemNoted DateDiagnosed DateResolved DateBMI 36.0-36.9,adult09/13/2022 07/17/2024aroxysmal atrial geyvetfkltlf64 Assessment & Plan (05/27/2024 12:56 PM EDT): KVF5WL8-CNTv= 6-7 at least with Age, Sex, CHF, CAD/Vascular disease, HTN, DM Currently per assessment she appears to be in rhythm heart rate well-controlled with metoprolol 200mg daily and she remains on Eliquis anticoagulation without any bleeding tendencies or concerns. Encounters DateTypeDepartmentCare HqyeCsyispbrxly19/03/2025 7:30 AM ESTAncillary Procedure [facility] [address] [place] [phone] Pre-operative cardiovascular examination, ICD in place07/10/2025Orders Only [facility] [address] [place] [phone] Marisol Khoury MD 06/12/2025 1:00 PM EDTAncillary Procedure [facility] [address] [place] [phone] Pre-operative cardiovascular examination, ICD in place06/12/2025Orders Only [facility] [address] [place] [phone] Brian Potter MD 06/12/2025Orders Only [facility] [address] [place] [phone] Brian Potter MD 06/11/2025 12:35 PM EDTAncillary Procedure [facility] [address] [place] [phone] Pre-operative cardiovascular examination, ICD in place06/01/2025Refill [facility] [address] [place] [address] Zhane, Lorenza, HELP DESK REP Dyslipidemiafrom Last 3 Months Family History Medical [...] part ner or ex-partner?No09/12/2024PHQ-2AnswerDate RecordedPatient Health Questionnaire-2 Lhujd363UT Safety & EnvironmentAnswerDate RecordedFear of Current or Ex-PartnerNot on file11/02/2023Emotionally AbusedNot on file 11/02/2023hysically AbusedNot on file11/02/2023Sexually AbusedNot on file 11/02/2023hysically or Sexually AbusedNot on file11/02/2023TransportationAnswer Date RecordedIn the past 12 months, has lack of transportation kept you from medical appointments or from getting medications?No09/12/2024In the past 12 months, has lack of transportation kept you from meetings, work, or from getting things needed for daily living?No09/12/2024Housing Stability Vital SignAnswer Date RecordedIn the last 12 months, was there a time when you were not able to pay the mortgage or rent on time?No09/12/2024In the past 12 months, how many times have you moved where you were living?t any time in the past 12 months, were you homeless or living in a usp (including now)?No09/12/2024 Hunger Vital SignAnswerDate RecordedWithin the past 12 months, you worried that your food would run out before you got the money to buymore.Never true09/12/2024 Within the past 12 months, the food you bought just didn't last and you didn't have money to get more.Never true09/12/2024CommentsNoSex and Gender InformationValueDate RecordedSex Assigned at UtohuJkgbcx30/08/2025 9:20 PM EDT Legal YohVznmfk13/29/2022 10:03 PM EDTGender IdentityChoose not to disclose 06/18/2025 9:20 PM EDTSexual OrientationChoose not to ottzshvt49/08/2025 9:20 PM EDT Last Filed Vital Signs Vital SignReadingTime TakenCommentsBlood Fxxtxazh331/6705 1:10 PM EDT Ewvtl2655 1:10 PM EDTTemperature--Respiratory Hsfw6715 2:18 PM ESTOxygen Ismrlenole94%01/21/2025 1:10 PM EDTInhaled Oxygen Concentration-- Assaij09.1 kg (137 lb)01/21/2025 1:10 PM BZPYwjpmb763.4 cm (5')01/21/2025 1:10 PM EDTBody Mass Index26.76001/21/2025 1:10 PM EDT Plan of Treatment DateTypeDepartmentCare Team (Latest Contact Info)Nnsahqdfhbh65/25/2025 1:15 PM ESTOffice Visit [facility] [place] [address] [place] [address] Brian Potter MD [address] [place] [address] Health MaintenanceDue DateLast DoneCommentsDiabetes: Hemoglobin A1C1942 Medicare Annual Wellness (AWV)3Diabetes: Retinopathy Screening 3Diabetes: Urine Protein Idvlzfucg11/26/1962neumococcal Vaccine: 50+ Years (1 of 2 - PCV)1961dult Yburmao2110/06/1964Zoster Vaccines (1 of 2) 1992COVID-19 Vaccine ( - season)/06/2021, 11/06/2020, 10/09/2020Influenza Vaccine (#1)/, 07/01/2021, 06/10/2020, Additional history existsDepression Jhwggpiib85/10/2024Fall Risk Xvjbkqkyi68/10/2024HIB VaccinesAged OutNo longer eligible based on patient's [...] Expiration DateModel / Serial / LotVigilant X4 Proposal Review Analyst-D Is-1/Df4/Is4 Implanted:Qty: 1 on 07/10/2024 [facility] ICDLeft: [facility] [id number]/03/[id number] / [id number] / [place] 4-Front S Active Fix Single Coil 59cm Implanted:Qty: 1 on 07/10/2024 by Brian Potter MD at [facility] [id number] / [id number] / Lead,Acuity X4,Spiral L - [id number] - [id number] Implanted:Qty: 1 on 07/10/2024 by Brian [facility] Hospital[facility]: [facility] [id number] / [id number] / Procedures Procedure NamePriorityDate/TimeAssociated DiagnosisCommentsCARDIAC DEVICE CHECK CHECK - HWGBBGEjcbfnk90/03/2025 1:09 PM EST Pre-operative cardiovascular examination, ICD in place CARDIAC DEVICE CHECK - REMOTE - VUSQcuhlmu84/30/2025 12:00 AM EDTCARDIAC DEVICE CHECK CHECK - DHNVKLMwasklb80/08/2025 12:43 PM EDT Pre-operative cardiovascular examination, ICD in place CARDIAC DEVICE CHECK CHECK - KEFNAWQvnzxng27/08/2025 12:42 PM EDT Pre-operative cardiovascular examination, ICD in place CARDIAC DEVICE CHECK - REMOTE ALERT - IZUJvtfdog53/02/2025 12:00 AM EDTCARDIAC DEVICE CHECK - REMOTE ALERT - PZUIayofoh60/02/2025 12:00 AM EDTfrom Last 3 Months Results * CARDIAC DEVICE CHECK - REMOTE - ICD (07/14/2025 1:09 PM EST) Only the most recent of3 resultswithin the time period is included. Specimen (Source)Anatomical Location / LateralityCollection Method / Volume Collection TimeReceived Time Narrative Authorizing ProviderResult TypeResult StatusBrian Potter [facility] IMPLANTABLE CARDIAC DEVICE PROCEDURESFinal ResultPerforming OrganizationAddressCity/State/ZIP Code Phone Number CPACS * Cardiac device check - Remote ICD (07/10/2025 12:00 AM EDT)Anatomical Region LateralityModalityOtherSpecimen (Source)Anatomical Location / Laterality Collection Method / VolumeCollection TimeReceived Time07/10/2025 Narrative Authorizing ProviderResult TypeResult StatusMarisol Khoury [facility] IMPLANTABLE CARDIAC DEVICE PROCEDURESFinal Result * Cardiac device check - Remote alert ICD (06/12/2025 12:00 AM EDT) Only the most recent of2 resultswithin the time period is included. Anatomical RegionLateralityModalityOtherSpecimen (Source)Anatomical Location / LateralityCollection Method / VolumeCollection TimeReceived Time06/12/2025 Narrative Authorizing ProviderResult TypeResult StatusPanilton Potter MDCV IMPLANTABLE CARDIAC DEVICE PROCEDURESFinal Result from Last 3 Months Insurance * Guarantor: aHrman Horta LAccount TypeRelation to PatientDate of BirthPhone Billing AddressPersonal/AuuucuKzkd27/26/1941 [facility] [phone] Care Teams Team MemberRelationshipSpecialtyStart DateEnd Gil Blake MD [address] [place] [address] PCP - General09/16/22
--- OUTSIDE RECORDS SUMMARY | 2025-07-21 13:46 | XMS_ITS | Clinical Summary ---
Author Organization [facility] Address [address] [place] [address] Care Team Providers Care Head Rose Grower Name Role Phone Unavailable Primary Care Provider Unavailabl e Source Comments The following information is NOT included in Care Everywhere downloads:Psychiatric notes, ECG results, Cardiac Rehab notes, Pulmonary Function notes, data from SmartForms (includes but not limited toPregnancy data,audiograms, eye exams, pre-surgical evaluation notes, well-child exam data).[facility] Social History Tobacco UseTypesPacks/DayYears UsedDateSmoking Tobacco: Never Assessed CommentsUnknownSex and Gender InformationValueDate RecordedSex Assigned at Not on fileLegal AqqRpwbkm18/18/2025 4:12 PM EDTGender IdentityNot on fileSexual OrientationNot on file Plan of Treatment Health MaintenanceDue DateLast DoneCommentsTdap Qwizdnw4410/06/1960Hepatitis A (HAV) Vaccine (optional start 19+ years)1961Tetanus (Td or Tdap) Booster 2Pneumococcal Vaccine(s) (50+ yrs) (1 of 1 - PCV)1992Shingles (RZV) Vaccine (1 of 2)1992Hepatitis B (HBV) Vaccine (optional start 60+ years)2002Bone Tcikgurhlwod23/26/2008RSV vaccine (adult) (1 - 1-dose 75+ series)2017COVID-19 Vaccine (1 - 2024- season)2025Influenza Vaccine (#1)2025Pap SmearDiscontinued
--- OUTSIDE RECORDS SUMMARY | 2025-07-21 13:46 | XMS_ITS | Clinical Summary ---
Author Organization [facility] Address [address] [place] [address] Care Team Providers Care Inspector Conveyor Line Name Role Phone Gil Blake MD Primary Care Provider [phone] Allergies Active AllergyReactionsCriticalityNoted DateCommentsCefdinirOther: See Comments, Lvjmrhvq30/03/2023CiprofloxacinOther: See Mnzwrvna49/19/2018 tendon issues Oxycodone-AcetaminophenIntolerance,GI Upset03/31/2013TramadolMental Status Ttgzyl2411/09/2022 Medications MedicationSigDispense QuantityRefillsLast FilledStart DateEnd DateStatus amLODIPine [...] daily at bedtime. Cut in half Active Mwcuh-4-MWV-EPA-Fish Oil 1,000 mg (120 mg-180 mg) cap [...] Problems ProblemNoted DateDiagnosed DateStage 3a chronic kidney jqgwrph5302/14/2023VAIN II (vaginal intraepithelial neoplasia grade II)10/13/2017 Overview (10/13/2017): Added automatically from request for surgery [id number] Vaginal bwpuxy0101/20/2017Essential xdrvzvpkyret31/08/2017Type 2 diabetes mellitus without complication, without long-term current use of swzxhnr9301/16/2017 Haylxeehmntdke79/08/1760Kjzhvmpqxohl66/08/2017Atherosclerosis of sitka coronary artery of sitka heart without angina wrjwzbce11/08/2017S/P coronary artery stent sxaiuidke94/08/2017Moderate smoker (20 or less per day)01/16/2017PAD (peripheral [...] drink = 0.6 oz pure alcohol)PHQ-2AnswerDate RecordedPHQ-2 uzabf7163Area Deprivation Index AnswerDate RecordedNational Score (1-100), lower number is lower risk78 02/14/2023State Score (1-10), lower number is lower mxif975/ata from: https://www.neighborhoodatlas.medicine.[facility].edu/. Last address used for rfccudycayx2923 [place] 9596702/14/2023CommentsNoSex and Gender Information ValueDate RecordedSex Assigned at BirthNot on fileLegal NavGjjdct04/27/2017 11:34 AM EDTGender IdentityNot on fileSexual OrientationNot on file Last Filed Vital Signs Vital SignReadingTime TakenCommentsBlood Mjsvfbjh896/63010/08/2024 1:02 PM EST Zwdtj485110/08/2024 1:02 PM PHUYvyogzcrriw27.2 ??C (97.2 ??F)10/08/2024 1:02 PM ESTRespiratory Tqnl811810/08/2024 1:02 PM ESTOxygen Ykpdofcbqh01%10/08/2024 1:02 PM ESTInhaled Oxygen Concentration--Zohzai82.5 kg (148 lb 13 oz)10/08/2024 1:02 PM SHYRqlvgm554.9 cm (5' 0.98 )10/08/2024 1:02 PM ESTBody Mass Index28.13 10/08/2024 1:02 PM EST Plan of Treatment Health MaintenanceDue DateLast DoneCommentsDiabetic Foot Exam3Dilated Retinal Exam1952Urine Albumin:Creatinine Ratio3Anxiety Screening 1960epression Yfkuwnnkz32/26/1961LDL Hddpfauevas45/26/1961TaP,Tdap,Td Vaccine (1 - Tdap)1961hingrix Vaccine (1 of 2)1992Medicare Annual Wellness Visit09/11/2007one Density Emdascobr49/26/2008RSV Vaccine (1 - 1-dose 75+ series)2017Pneumococcal Vaccine: 50+ (2 of 2 - PCV)01/19/2018 01/19/2017, 06/15/20107929GpX8A13///Advance Directive Discussion 5Covid-19 Vaccine ( - season)/06/2021, 11/06/2020, 10/09/2020Influenza Vaccine (#1)/, 06/10/2020, 06/07/2017, Additional history exists Medical Devices ImplantedTypeAreaManufacturerDevice IdentifierShelf Expiration DateModel / Serial / LotIntraocular LensIntraocular LensEye - LensStentStentChest Procedures Procedure NamePriorityDate/TimeAssociated DiagnosisCommentsHEMOGLOBIN A0DFkmfnqo 04/28/2020 1:36 PM EDT Type 2 diabetes mellitus with unspecified complications (HCC) Pre-op evaluation from Last 3 Months or Most Recently Relevant to Health Maintenance Results * (ABNORMAL) HGB A1C (04/28/2020 1:36 PM EDT)ComponentValueRef RangeTest Method Analysis TimePerformed AtPathologist SignatureHemoglobin A1C6.8(H)4.3 - 5.6 % 04/28/2020 9:23 PM EDTCleveland Clinic LaboratoriesComment: [place] Diabetes Association guidelines indicate that patients with HgbA1c in the range 5.7-6.4% are at increased risk for development of diabetes, and intervention by lifestyle modification may be beneficial. HgbA1c greater or equal to 6.5% is considered diagnostic of diabetes. Estimated Average Vbckizj621ll/dL04/28/2020 9:23 PM EDTCAultman Alliance Community Hospital LaboratoriesComment: eAG: (Estimated average glucose) is a calculated value from HgbA1c and is sales and service representative of the average blood glucose level in the last 2-3 month period. Specimen (Source)Anatomical Location / LateralityCollection Method / Volume Collection TimeReceived TimeBlood specimen (specimen)WHOLE BLOOD SPECIMEN / Hdmpfpu1104/28/2020 1:36 PM EDT04/28/2020 1:38 PM EDT Narrative Authorizing ProviderResult TypeResult StatusAndping Balderrama MDLABORATORYFinal Result Performing OrganizationAddressCity/State/ZIP CodePhone Number [facility] [address] [place] [address] [facility] [address] [place] [address] from Last 3 Months or Most Recently Relevant to Health Maintenance Insurance MemberSubscriberPlan / Payer (Effective 2007-Present)Name:Harman Horta Member ID:[id number] Relation to Subscriber:SelfName:Harman Horta Berna Subscriber ID:[id number] Payer ID:Not on file Group ID:Not on file Type:Medicare Address: [facility] [id number] [place] [address] Advance Directives TypeDate RecordedPatient RepresentativeExplanationAdvance Directive(s)01/16/2017 3:59 PM Care Teams Team MemberRelationshipSpecialtyStart DateEnd Gil Blake MD PCP - GeneralFamily Medicine01/05/17
--- OUTSIDE RECORDS SUMMARY | 2025-07-21 13:46 | XMS_ITS | Clinical Summary ---
Author Organization [facility] Address [address], [address] [place] [address] Care Team Providers Care Reservoir Engineering Consultant Name Role Phone Gil Blake MD Primary Care Provider [phone] Allergies Active AllergyReactionsCriticalityNoted DateCommentsCefdinirNausea And Vomiting Low3CiprofloxacinHives,Other (See Comments)High09/29/2017 tendon issues LonrjkbphUexxShu74/15/2019 Rash & GI upset TramadolDiarrhea,Nausea And SzwtmwpgJqldet68/01/2023 Medications MedicationSigDispense QuantityRefillsLast FilledStart DateEnd DateStatus amLODIPine (NORVASC) 5 MG tablet Take 1 tablet by mouth daily1Active apixaban (ELIQUIS) 5 MG TABS tablet Take 1 tablet by mouth 2 times daily OK to continue for OR per Dr. Brooks aspirin 81 MG EC tablet Take 1 tablet by mouth daily OK to continue for OR per Dr. Brooks furosemide (LASIX) 40 MG tablet Take 1 tablet by mouth 2 times dailyActive glimepiride (AMARYL) 4 MG tablet Take by mouth 2 times dailyActive hydrALAZINE (APRESOLINE) 100 MG tablet Take 1 tablet by mouth 3 times daily as needed IF BP >130.Active isosorbide mononitrate (IMDUR) 60 MG extended release tablet Take 1 tablet by mouth in the morning and at bedtimeActive liothyronine (CYTOMEL) 5 MCG tablet Take 2 tablets by mouth dailyActive metFORMIN (GLUCOPHAGE) 500 MG tablet Take 1 tablet by mouth 2 times daily (with meals)Active Metoprolol Succinate 200 MG CS24 Take 200 mg by mouth dailyActive sucralfate (CARAFATE) 1 GM tablet Take 1 tablet by mouth Before meals and at bedtimeActive levothyroxine (SYNTHROID) 112 MCG tablet Take 1 tablet by mouth daily04/19/2021ctive simvastatin (ZOCOR) 20 MG tablet Take 1 tablet by mouth at bedtimeActive albuterol sulfate HFA (PROVENTIL;VENTOLIN;PROAIR) 108 (90 Base) MCG/ACT inhaler Inhale 2 puffs into the lungs every 6 hours as needed for WheezingActive acetaminophen (TYLENOL) 500 MG tablet Take 2 tablets by mouth every 6 hours as needed for Pain 60 tablet 06/28/2022ctive meloxicam (MOBIC) 15 MG tablet TAKE 1 TABLET BY MOUTH EVERY DAY11/02/2022ctive anastrozole (ARIMIDEX) 1 MG tablet Take 1 tablet by mouth daily11/09/2022ctive nystatin (MYCOSTATIN) 999229 UNIT/GM cream Apply topically 2 times daily. 1 each ctive Additional Information Patient taking differently: DAILY PRN, Skin folds, Reported on 03/03/2023 vitamin D3 (CHOLECALCIFEROL) 125 MCG (5000 UT) TABS tablet Take 1 tablet by mouth daily11/29/2022ctive albuterol (PROVENTIL) (2.5 MG/3ML) 0.083% nebulizer solution Take 3 mLs by nebulization every 6 hours as needed for WheezingActive [place]-3 Fatty Acids (FISH OIL OMEGA-3 PO) Take 1 capsule by mouth in the morning and at bedtime 1000/ 300Active potassium chloride (KLOR-CON M20) 20 MEQ extended release tablet 1 tablet with food Orally twice daily for 30 daysActive febuxostat (ULORIC) 40 MG TABS tablet Take 1 tablet by mouth daily06/09/2023ctive Active Problems ProblemNoted DateDiagnosed DateS/p Vaginal and Vulvar Biopsies, CO2 laser vaporization of vaginal and vulvar lesions 06/28/2210//p Partial vaginectomy with Ultrasonic Scalpel 06/15/2110/01/2021HGSIL Pap smear of vagina 04/13/2021Vaginal intraepithelial neoplasia III (VAIN III)Vulvar intraepithelial neoplasia (VIVEK) grade 3Vaginal dysplasia Resolved Problems ProblemNoted DateDiagnosed DateResolved DateVaginectomy w/ Cysto 12/13/21 Immunizations ImmunizationAdministration DatesNext DueCOVID-19, Inactive, MODERNA BLUE border, Primary or Immunocompromised, (age 12y+)11/06/2020,10/09/2020 Family History Medical HistoryRelationNameCommentsHeart DiseaseFatherHigh Blood PressureFather CancerMotherDiabetesMotherHeart DiseaseMotherHigh Blood PressureMotherBreast CancerSisterRelationNameStatusCommentsFatherDeceasedMotherDeceasedOtherdaughter Otherbreast & hysterectomy due to cancerSister Social History Tobacco UseTypesPacks/DayYears UsedDateSmoking Tobacco: [id number] - 2018Passive Smoke Exposure: PastSmokeless Tobacco: Never Tobacco Cessation:Counseling Given: Not Answered Alcohol UseStandard Drinks/WeekCommentsNot Currently0 (1 standard drink = 0.6 oz pure alcohol)Interpersonal Safety Domain Source: IP Abuse ScreeningAnswerDate RecordedHow often does anyone, including family and friends, physically hurt you?Not on file03/03/2023How often does anyone, including family and friends, scream or curse at you?Not on file03/03/2023How often does anyone, including family and friends, insult or talk down to you?Not on file03/03/2023How often does anyone, including family and friends, threaten you with harm?Not on file 03/03/2023Read-Only, Retired: Physical OskrpPoaeah94/23/2023Read-Only, Retired: Verbal UjqglEqtgko45/23/2023Read-Only, Retired: Emotional hipnnUndnqj64/23/2023 Read-Only, Retired: Financial UbzdiIejram26/23/2023Read-Only, Retired: Sexual kqlhoFfzbrl65/23/2023CommentsNoSex and Gender InformationValueDate RecordedSex Assigned at BirthNot on fileLegal RkcDgikgk43/10/2013 7:39 PM EST Gender IdentityNot on fileSexual OrientationNot on file Last Filed Vital Signs Vital SignReadingTime TakenCommentsBlood Hwisqwkl321/6511 1:23 PM EDT Hloeo402407/12/2023 1:23 PM KAQMpvszxseefn40.4 ??C (97.6 ??F)07/12/2023 1:23 PM EDTRespiratory Kqwo503803/06/2023 8:30 AM EDTOxygen Gcopueqifl75%07/12/2023 1:23 PM EDTInhaled Oxygen Concentration--Xjfivp59.4 kg (181 lb 9.6 oz)07/12/2023 1:23 PM QGSHfrxtr272.9 cm (5' 0.98 )07/12/2023 1:23 PM EDTBody Mass Index34.33 07/12/2023 1:23 PM EDT Plan of Treatment Health MaintenanceDue DateLast SlaiMcrfktckWktkgy12/26/1951Depression Screen 1954DTaP/Tdap/Td vaccine (1 - Tdap)2Pneumococcal 50+ years Vaccine (1 of 1 - PCV)1992Shingles vaccine (1 of 2)1992DEXA (modify frequency per FRAX score)1997Respiratory Syncytial Virus (RSV) or age 60 yrs+ (1 - 1-dose 75+ series)2017Annual Wellness Visit (Medicare) 08/07/2023Flu vaccine (#1)/, 06/10/2020, 06/07/2017COVID-19 Vaccine ( season)/06/2021, 11/06/2020, 10/09/2020 Hepatitis A vaccineAged OutNo longer eligible based on patient's age to complete this topicHepatitis B vaccineAged OutNo longer eligible based on patient's age to complete this topicHib vaccineAged OutNo longer eligible based on patient's age to complete this topicMeningococcal (ACWY) vaccineAged OutNo longer eligible based on patient's age to complete this topicMeningococcal B vaccineAged OutNo longer eligible based on patient's age to complete this topicPolio vaccineAged OutNo longer eligible based on patient's age to complete this topic Insurance Advance Directives * Full Code (Latest Code Status on File) Date ActivatedDate InactivatedComments03/06/2023 5:56 AM03/06/2023 11:07 AM * Full Code Date ActivatedDate JxwznjiwnjqIuwsreqj90/18/2022 6:57 AM06/28/2022 2:17 PM Care Teams Team MemberRelationshipSpecialtyStart DateEnd Date Gil Blake MD [address] [place] [address] PCP - GeneralFamily Medicine03/04/21
--- OUTSIDE RECORDS SUMMARY | 2025-07-21 13:46 | XMS_ITS | Clinical Summary ---
Author Organization [facility] Address [address] [place] [address] Care Team Providers Care Web Content Producer Name Role Phone Gil Blake MD Primary [...] BY MOUTH IN THE MORNING AND AT FHNZVAP6304/08/2024ctive febuxostat (Uloric) 40 MG tablet Take 40 [...] Problems No known active problems Encounters DateTypeDepartmentCare EglmRjxnkaayjbi46/23/2025 1:50 PM EDTOffice Visit [facility] [address] [facility] [address] [place] [phone] Peyman Roper DPM Neoplasm of uncertain behavior of skin (Primary Dx); Diabetes mellitus due to underlying condition with diabetic polyneuropathy, 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 fci insulin use (HCC); Pain due to onychomycosis of toenails of both feet; Venous insufficiency; Acquired deformity of left toe07/03/2025amboo flowsheet [facility] [address] [facility] [address] [place] [phone] Peyman Roper DPM 07/03/2025Travelfrom Last 3 Months Family History Medical HistoryRelationNameCommentsArthritisMotherCancerMotherDiabetesMother Heart diseaseMotherHypertensionMotherRelationNameStatusCommentsFatherDeceased MotherDeceased Social History Tobacco UseTypesPacks/DayYears UsedDateSmoking Tobacco: FormerCigarettes Smokeless Tobacco: Never Tobacco Cessation:Counseling Given: Yes Alcohol UseStandard Drinks/WeekCommentsNever0 (1 standard drink = 0.6 oz pure alcohol)CommentsUnknownSex and Gender InformationValueDate RecordedSex Assigned at BirthNot on fileLegal KceRpwzsv86/15/2023 7:38 PM EDTGender Identity Not on fileSexual OrientationNot on file Last Filed Vital Signs Vital SignReadingTime TakenCommentsBlood Pressure--Pulse--Temperature-- Respiratory Xevy4882 1:58 PM EDTOxygen Saturation--Inhaled Oxygen Concentration--Fsaydv87.8 kg (145 lb)07/03/2025 1:58 PM UNWJwqtrt943.4 cm (5') 07/03/2025 1:58 PM EDTBody Mass Index28.321 1:58 PM EDT Plan of Treatment DateTypeDepartmentCare Team (Latest Contact Info)Qqkjjiavuof09/22/2026 1:50 PM ESTOffice Visit [facility] [address] [facility] [address] [place] [phone] Peyman Roper DPM [address] [facility] [address] [place] [address] Health MaintenanceDue DateLast DoneCommentsPneumococcal Vaccine: 65+ Years (2 of 2 - PCV), 06/15/2010COVID-19 Vaccine ( - 2024- season) , 11/06/2020, 10/09/2020Influenza Vaccine (#1)2025 06/25/2024, 07/01/2021, 06/10/2020, Additional history exists Insurance Care Teams Team MemberRelationshipSpecialtyStart DateEnd Gil lBake MD [address] [facility] [place] [address] PCP - GeneralFamily Medicine02/14/24
--- OUTSIDE RECORDS SUMMARY | 2025-07-21 13:46 | XMS_ITS | Encounter Summary ---
Author Organization [facility] Address [address] [place] [address] Care Team Providers Care Press Tender Smoke Signal Name Role Phone Gil Blake MD Primary Care Provider [phone] Encounter Details DateTypeDepartmentCare Team (Latest Contact Info)Iuhztxhhzor12/30/2025Orders Only [facility] [address] [place] [address] Marisol Khoury MD [address] [place] [address] Social History Tobacco UseTypesPacks/DayYears UsedDateSmoking Tobacco: FormerCigarettesPassive [...] your partner or ex-partner?No09/12/2024PHQ-2AnswerDate RecordedPatient Health Questionnaire-2 Xrsdc926UT Safety & Environment AnswerDate RecordedFear of Current [...] were you homeless or living in a assisted (including now)?No09/12/2024Hunger Vital SignAnswerDate RecordedWithin the past 12 months, you worried that your food would run out before you got the money to buymore.Never true09/12/2024Within the past 12 months, the food you bought just didn't last and you didn't have money to get more.Never true 09/12/2024CommentsNoSex and Gender InformationValueDate RecordedSex Assigned at GzwmzEgbmbm65/08/2025 9:20 PM EDTLegal EmyQwhthv67/29/2022 10:03 PM EDTGender IdentityChoose not to xagabkss10/08/2025 9:20 PM EDTSexual Orientation Choose not to hynrlrrg32/08/2025 9:20 PM EDTdocumented as of this encounter Plan of Treatment DateTypeDepartmentCare Team (Latest Contact Info)Yidfkdckxmd91/25/2025 1:15 PM ESTOffice Visit [facility] at [address] [place] [phone] Brian Potter MD [address] [place] [phone] documented as of this encounter Procedures Procedure NamePriorityDate/TimeAssociated DiagnosisCommentsCARDIAC DEVICE CHECK - REMOTE - BGPRavtnsx98/30/2025 12:00 AM EDTdocumented in this encounter Results * Cardiac device check - Remote ICD (07/10/2025 12:00 AM EDT)Anatomical Region LateralityModalityOtherSpecimen (Source)Anatomical Location / Laterality Collection Method / VolumeCollection TimeReceived Time07/10/2025 Narrative Authorizing ProviderResult TypeResult StatusSaradha Khoury MDC IMPLANTABLE CARDIAC DEVICE PROCEDURESFinal Result documented in this encounter Visit Diagnoses Not on filedocumented in this encounter Care Teams Team MemberRelationshipSpecialtyStart DateEnd Date Gil Blake MD [address] [facility] [address] [address] PCP - General09/16/22documented as of this encounter
--- NOTE | 2025-07-21 14:46 | PM.CN ---
Consult Note: HPI Data of Consult Patient: known to practice within the last 3 years Consult date: 07/21/25 Requesting Physician: Jefferson Farmer MD Primary Care Provider: Gil Blake MD Consult Narrative Reason for consult: low back, bilateral leg pain Narrative: 84yof who presents for assessment. notes worsening pain from low back into bilateral lower extremities. imaging shows multilevel stenosis in lumbar spine, 5mm listhesis of l4 on 5. continues in a series of provider directed home exercises >6 weeks, without benefit. on gabapentin 100mg bid, without benefit. denies adverse med side effects. cc:: CC: Jefferson Farmer MD Review of Systems ROS Status of ROS 10 or more systems reviewed and unremarkable except as noted in history and below [facility] Medical History Acute kidney injury superimposed on chronic kidney disease ?N17.9 - Acute kidney failure, unspecified (ICD-10) ?N18.9 - Chronic kidney disease, unspecified (ICD-10) Cellulitis of arm, left ?L03.114 - Cellulitis of left upper limb (ICD-10) Defibrillator discharge ?Z45.02 - Encounter for adjustment and management of automatic implantable cardiac defibrillator (ICD-10) Lower gastrointestinal hemorrhage ?K92.2 - Gastrointestinal hemorrhage, unspecified (ICD-10) Anemia in stage 4 chronic kidney disease ?N18.4 - Chronic kidney disease, stage 4 (severe) (ICD-10) ?D63.1 - Anemia in chronic kidney disease (ICD-10) Abscess, gluteal, right ?L02.31 - Cutaneous abscess of buttock (ICD-10) Morbid obesity ?E66.01 - Morbid (severe) obesity due to excess calories (ICD-10) History of tobacco abuse ?Z87.891 - Personal history of nicotine dependence (ICD-10) Acute renal failure ?N17.9 - Acute kidney failure, unspecified (ICD-10) Elevated diaphragm ?J98.6 - Disorders of diaphragm (ICD-10) Pleural effusion ?J90 - Pleural effusion, not elsewhere classified (ICD-10) COPD with acute exacerbation ?J44.1 - Chronic obstructive pulmonary disease with (acute) exacerbation (ICD-10) Acute hypoxic respiratory failure ?J96.01 - Acute respiratory failure with hypoxia (ICD-10) Acute on chronic diastolic CHF (congestive heart failure) ?I50.33 - Acute on chronic diastolic (congestive) heart failure (ICD-10) Type 2 diabetes mellitus ?E11.9 - Type 2 diabetes mellitus without complications (ICD-10) Hypoxemia ?R09.02 - Hypoxemia (ICD-10) Abscess ?L02.91 - Cutaneous abscess, unspecified (ICD-10) Abscess ?L02.91 - Cutaneous abscess, unspecified (ICD-10) Cellulitis and abscess of left leg ?L03.116 - Cellulitis of left lower limb (ICD-10) ?L02.416 - Cutaneous abscess of left lower limb (ICD-10) Hyperkalemia ?E87.5 - Hyperkalemia (ICD-10) Moderate protein-calorie malnutrition ?E44.0 - Moderate protein-calorie malnutrition (ICD-10) CHF (congestive heart failure) ?I50.9 - Heart failure, unspecified (ICD-10) Hypoxia ?R09.02 - Hypoxemia (ICD-10) Acute infective exacerbation of chronic obstructive airway disease ?J44.1 - Chronic obstructive pulmonary disease with (acute) exacerbation (ICD-10) Weakness ?R53.1 - Weakness (ICD-10) Acute right hip pain ?M25.551 - Pain in right hip (ICD-10) Rheumatoid arthritis flare ?M06.9 - Rheumatoid arthritis, unspecified (ICD-10) Difficulty in walking ?R26.2 - Difficulty in walking, not elsewhere classified (ICD-10) Arthralgia ?M25.50 - Pain in unspecified joint (ICD-10) CAD, multiple vessel ?I25.10 - Atherosclerotic heart disease of [place] coronary artery without angina pectoris (ICD-10) Atrial fibrillation ?I48.91 - Unspecified atrial fibrillation (ICD-10) COPD (chronic obstructive pulmonary disease) ?J44.9 - Chronic obstructive pulmonary disease, unspecified (ICD-10) Gouty arthritis ?M10.9 - Gout, unspecified (ICD-10) Hypothyroidism (acquired) ?E03.9 - Hypothyroidism, unspecified (ICD-10) Iron deficiency anemia ?D50.9 - Iron deficiency anemia, unspecified (ICD-10) Surgical History History of cardiac defibrillator placement ?Z95.810 - Presence of automatic (implantable) cardiac defibrillator (ICD-10) H/O right mastectomy ?Z90.11 - Acquired absence of right breast and nipple (ICD-10) H/O: hysterectomy ?Z90.710 - Acquired absence of both cervix and uterus (ICD-10) History of appendectomy ?Z90.49 - Acquired absence of other specified parts of digestive tract (ICD-10) H/O heart artery stent ?Z95.5 - Presence of coronary angioplasty implant and graft (ICD-10) Family History Father Family history of CHF (congestive heart failure) Family history of cancer Family history of hypertension Sister Family history of cancer Family history of diabetes mellitus Mother Family history of diabetes mellitus Family history of hypertension Social History Within the past year, how often did you have a drink containing alcohol: never Within the past year, how often did you have six or more drinks on one occasion: never Score interpretation: A score less than 3 is consistent with normal alcohol consumption. Smoking status: Former smoker Non-prescribed substance use: denies use Previous occupational history: retired Known occupational exposures/hazards: No Highest level of school completed/degree received: high school graduate Are you now , , , , never or living with a partner: In a typical week, how many times do you talk on the telephone with family, friends, or neighbors: 3 or more times per week How often do you get together with friends or relatives: 3 or more times per week How often do you attend baptist or restorationist services: 4 or more times per year Little interest or pleasure in doing things: not at all Feeling down, depressed, or hopeless: not at all Feel stressed/tense/nervous/anxious/difficulty sleeping: not at all Do you think of yourself as: straight/heterosexual Gender Identity: female Meds Home Medications and Allergies Home Medications ?Medication ?Instructions ?Recorded ?Confirmed ?Type albuterol sulfate 2.5 mg/3 mL 2.5 mg inhalation Q4H PRN 03/04/23 03/19/25 History (0.083 %) solution for nebulization shortness of breath or wheezing aspirin 81 mg tablet,delayed 81 mg PO DAILY 03/04/23 03/19/25 History release (Adult Low Dose Aspirin) isosorbide mononitrate 60 mg 60 mg PO DAILY 03/04/23 03/19/25 History tablet,extended release 24 hr levothyroxine 112 mcg tablet 112 mcg PO DAILY 03/04/23 03/19/25 History liothyronine 5 mcg tablet 10 mcg PO DAILY 03/04/23 03/19/25 History febuxostat 40 mg tablet 40 mg PO DAILY 08/20/23 03/19/25 History insulin glargine 100 unit/mL 16 unit subcut QAM 10/14/23 03/19/25 History subcutaneous solution (Lantus U-100 Insulin) simvastatin 40 mg tablet 40 mg PO .QHS 06/26/24 03/19/25 History apixaban 5 mg tablet (Eliquis) 2.5 mg PO BID 03/06/25 03/19/25 History gabapentin 100 mg capsule 100 mg PO BID #60 caps 03/06/25 03/19/25 Rx leflunomide 20 mg tablet 20 mg PO DAILY 03/06/25 03/19/25 History Held on 03/23/25. Instructions: Resume on 04/13/25. acetaminophen 325 mg tablet 650 mg (2 x 325 mg) PO Q6H PRN 03/23/25 Rx (Tylenol) pain or fever #0 tabs amoxicillin 500 mg-potassium 1 tab PO BID 12 days #24 tabs 03/23/25 Rx clavulanate 125 mg tablet ferrous sulfate 325 mg (65 mg 325 mg PO BID #60 tabs 03/23/25 Rx iron) tablet insulin aspart U-100 100 unit/mL 3 - 15 unit (0.03 - 0.15 mL) 03/23/25 Rx (3 mL) subcutaneous pen (Novolog subcut ACHS #0 mL FlexPen U-100 Insulin aspart) metoprolol succinate 100 mg 100 mg PO DAILY #0 tabs 03/23/25 Rx tablet,extended release 24 hr pantoprazole 40 mg tablet,delayed 40 mg PO DAILY #60 tabs 03/23/25 03/19/25 Rx release (Protonix) Allergies Allergy/AdvReac Type Severity Reaction Status Date / Time oxycodone AdvReac Severe nausea and Verified 03/19/25 14:43 vomiting tramadol AdvReac Severe Vomiting Verified 03/19/25 14:43 cefdinir AdvReac Unknown Vomiting Verified 03/19/25 14:43 ciprofloxacin AdvReac Unknown Vomiting Verified 03/19/25 14:43 Exam Narrative Exam Narrative: Psych-alert and oriented x 3. Attentive and appropriate, constitutionally normal, displays normal mood and affect per situation. There are no obvious deficits in memory, reasoning, or intellect.? Skin-no obvious rashes, bruising, erythema noted to the patient's area of pain.? Extremities- extremities are warm with minimal edema and palpable pulses. Lumbar-tenderness to palpation noted in the lumbar spine and paraspinal musculature. Pain is elicited with flexion, extension, and lateral rotation of the lumbar spine. Range of motion is diminished with these motions. Facet loading maneuvers are positive.? Strength-noted to be unremarkable with the exception of decreased strength rated at 4 out of 5 in bilateral quadriceps femoris, anterior tibialis. Sensory-no notable sensory deficits in the bilateral lower extremities to touch or pinprick in all dermatomal distributions with the exception to decreased sensation to the bilateral L3, 4, 5 dermatomal distribution Coordination remains intact.? Gait remains non-antalgic. Assessment and Plan Assessment and Plan (1) Lumbar stenosis with neurogenic claudication: (2) Sacroiliitis: Plan 84yof who presents for assessment. failed conservative measures, as noted. imaging reviewed, as noted. was previously scheduled for injection therapy earlier this year, but subsequently developed gi issues and was hospitalized with prolonged stay at assisted living. at this point, will pursue bilateral l4-5 transforaminal epidural steroid injection under fluoroscopic guidance. may even benefit from bilateral sacroiliac joint injection. she is in agreement. meds reviewed. recommended that she increase gabapentin to 300mg bid, though should check with ordering provider first. follow up after procedure.
== END 2025-07-21 13:43 | disposition home or self-care (01) ==
LOC: PM 13:43
PROVIDERS: PCP Family Medicine; Visit Provider Anesthesiology
DX: M48.062 Spinal stenosis, lumbar region with neurogenic claudication (principal); M46.1 Sacroiliitis, not elsewhere classified
CPT/HCPCS: G0463

== ENCOUNTER 2025-07-28 08:09 | Day surgery (SDC) | payer MEDICARE, OTHER, SELFPAY ==
--- OUTSIDE RECORDS SUMMARY | 2025-07-28 08:12 | XMS_ITS | Clinical Summary ---
Author Organization [facility] Address [address], [address] [place] [address] Care Team Providers Care Income Tax Preparer Name Role Phone Gil Blake MD Primary Care Provider [phone] Allergies Active AllergyReactionsCriticalityNoted DateCommentsCefdinirNausea And Vomiting Low3CiprofloxacinHives,Other (See Comments)High09/29/2017 tendon issues EyaaeqpvxZnzwTrc43/15/2019 Rash & GI upset TramadolDiarrhea,Nausea And RglygjkpYpdowj74/01/2023 Medications MedicationSigDispense QuantityRefillsLast FilledStart DateEnd DateStatus amLODIPine (NORVASC) 5 MG tablet Take 1 tablet by mouth daily04/05/2021ctive apixaban (ELIQUIS) 5 MG TABS tablet Take [...] 1 tablet by mouth daily11/09/2022ctive nystatin (MYCOSTATIN) 831260 UNIT/GM cream Apply topically 2 times daily. 1 each ctive Additional Information Patient taking differently: DAILY PRN, Skin folds, Reported on 03/03/2023 vitamin D3 (CHOLECALCIFEROL) 125 MCG (5000 UT) TABS tablet Take 1 tablet by mouth daily11/29/2022ctive albuterol (PROVENTIL) (2.5 MG/3ML) 0.083% nebulizer solution Take 3 mLs by nebulization every 6 hours as needed for WheezingActive Nemo-3 Fatty Acids (FISH OIL OMEGA-3 PO) Take [...] cancerSister Social History Tobacco UseTypesPacks/DayYears UsedDateSmoking Tobacco: [id number] - 2018Passive Smoke Exposure: PastSmokeless Tobacco: Never [...] with harm?Not on file 03/03/2023Read-Only, Retired: Physical WbobcKtpshj41/23/2023Read-Only, Retired: Verbal MihugFdisyi43/23/2023Read-Only, Retired: Emotional raqsdMzclwg88/23/2023 Read-Only, Retired: Financial UfwwlMpuabn66/23/2023Read-Only, Retired: Sexual ocnksRdvtyw28/23/2023CommentsNoSex and Gender InformationValueDate RecordedSex Assigned at BirthNot on fileLegal ZnxTxkcuz75/10/2013 7:39 PM EST Gender IdentityNot on fileSexual OrientationNot on file Last Filed Vital Signs Vital SignReadingTime TakenCommentsBlood Cyaxybuo865/6511 1:23 PM EDT Nfmmt837507/12/2023 1:23 PM UIDDnoivxiaqmo63.4 ??C (97.6 ??F)07/12/2023 1:23 PM EDTRespiratory Ecqx977203/06/2023 8:30 AM EDTOxygen Qjmtmpfbtw31%07/12/2023 1:23 PM EDTInhaled Oxygen Concentration--Lnrgmb58.4 kg (181 lb 9.6 oz)07/12/2023 1:23 PM GUEPafmuf780.9 cm (5' 0.98 )07/12/2023 1:23 PM EDTBody Mass Index34.33 07/12/2023 1:23 PM EDT Plan of Treatment Health MaintenanceDue DateLast UokoYycshdyoHxjzfs61/26/1951Depression Screen 1954DTaP/Tdap/Td vaccine (1 - Tdap)2Pneumococcal 50+ [...] 11:07 AM * Full Code Date ActivatedDate XoaubuxzuwaOiasgnue47/18/2022 6:57 AM06/28/2022 2:17 PM Care Teams Team MemberRelationshipSpecialtyStart DateEnd Date Gil Blake MD [address] [place] [address] PCP - GeneralFamily Medicine03/04/21
--- OUTSIDE RECORDS SUMMARY | 2025-07-28 08:13 | XMS_ITS | Clinical Summary ---
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 Cut in half Active Xzkyg-8-THS-EPA-Fish Oil 1,000 mg (120 mg-180 mg) cap [...] Problems ProblemNoted DateDiagnosed DateStage 3a chronic kidney jqzmhzw7502/14/2023VAIN II (vaginal intraepithelial neoplasia grade II)10/13/2017 Overview (10/13/2017): Added automatically from request for surgery [id number] Vaginal hzltiu8501/20/2017Essential htdrgexmijgu37/08/2017Type 2 diabetes mellitus without complication, without long-term current use of oshilar0601/16/2017 Sduuxnkkkminnz19/08/9293Iglzoukyamoi29/08/2017Atherosclerosis of [place] coronary artery of [place] heart without angina hphdojwm26/08/2017S/P coronary artery stent /08/2017Moderate smoker (20 or less per day)01/16/2017PAD (peripheral [...] drink = 0.6 oz pure alcohol)PHQ-2AnswerDate RecordedPHQ-2 zgybm8353Area Deprivation Index AnswerDate RecordedNational Score (1-100), lower number is lower risk78 02/14/2023State Score (1-10), lower number is lower kogu129/ata from: https://www.neighborhoodatlas.medicine.[facility].edu/. Last address used for [address] [place] [address]/14/2023CommentsNoSex and Gender Information ValueDate RecordedSex Assigned at BirthNot on fileLegal JwiUnvlbm37/27/2017 11:34 AM EDTGender IdentityNot on fileSexual OrientationNot on file Last Filed Vital Signs Vital SignReadingTime TakenCommentsBlood Dgcqubtb888/63010/08/2024 1:02 PM EST Qsuwa162010/08/2024 1:02 PM ZKQApjliwmswns97.2 ??C (97.2 ??F)10/08/2024 1:02 PM ESTRespiratory Jtnp932810/08/2024 1:02 PM ESTOxygen Ezetteyerl07%10/08/2024 1:02 PM ESTInhaled Oxygen Concentration--Qawzuu55.5 kg (148 lb 13 oz)10/08/2024 1:02 PM PNIYnatgl264.9 cm (5' 0.98 )10/08/2024 1:02 PM ESTBody Mass Index28.13 10/08/2024 1:02 PM EST Plan of Treatment Health MaintenanceDue DateLast DoneCommentsDiabetic Foot Exam3Dilated Retinal Exam1952Urine Albumin:Creatinine Ratio3Anxiety Screening 1960epression Usnivtfss22/26/1961LDL Ynsbfegokbq10/26/1961TaP,Tdap,Td Vaccine (1 - Tdap)1961hingrix Vaccine (1 of 2)1992Medicare Annual Wellness Visit09/11/2007one Density Pxugugnab50/26/2008RSV Vaccine (1 - 1-dose 75+ series)2017Pneumococcal Vaccine: 50+ (2 of 2 - PCV)01/19/2018 01/19/2017, 06/15/20109538EvI0C90///Advance Directive Discussion 5Covid-19 Vaccine ( - season)/06/2021, 11/06/2020, 10/09/2020Influenza Vaccine (#1)/, 06/10/2020, 06/07/2017, Additional history exists Medical Devices ImplantedTypeAreaManufacturerDevice IdentifierShelf Expiration DateModel / Serial / LotIntraocular LensIntraocular LensEye - LensStentStentChest Procedures Procedure NamePriorityDate/TimeAssociated DiagnosisCommentsHEMOGLOBIN L5JRhmzpwv 04/28/2020 1:36 PM EDT Type 2 diabetes mellitus with unspecified complications (HCC) Pre-op evaluation from Last 3 Months or Most Recently Relevant to Health Maintenance Results * (ABNORMAL) HGB A1C (04/28/2020 1:36 PM EDT)ComponentValueRef RangeTest Method Analysis TimePerformed AtPathologist SignatureHemoglobin A1C6.8(H)4.3 - 5.6 % 04/28/2020 9:23 PM EDTCleveland Clinic LaboratoriesComment: [place] Diabetes Association guidelines indicate that patients with HgbA1c in the range 5.7-6.4% are at increased risk for development of diabetes, and intervention by lifestyle modification may be beneficial. HgbA1c greater or equal to 6.5% is considered diagnostic of diabetes. Estimated Average Saiinlo021vq/dL04/28/2020 9:23 PM EDTCVeterans Health Administration LaboratoriesComment: eAG: (Estimated average glucose) is a calculated value from HgbA1c and is international account representative of the average blood glucose level in the last 2-3 month period. Specimen (Source)Anatomical Location / LateralityCollection Method / Volume Collection TimeReceived TimeBlood specimen (specimen)WHOLE BLOOD SPECIMEN / Rwklwah1604/28/2020 1:36 PM EDT04/28/2020 1:38 PM EDT Narrative Authorizing ProviderResult TypeResult StatusAndping Balderrama MDLABORATORYFinal Result Performing OrganizationAddressCity/State/ZIP CodePhone Number [facility] [address] [place] [address] [facility] [address] [place] [address] from Last 3 Months or Most Recently Relevant to Health Maintenance Insurance Advance Directives TypeDate RecordedPatient RepresentativeExplanationAdvance Directive(s)01/16/2017 3:59 PM Care Teams Team MemberRelationshipSpecialtyStart DateEnd Gil Blake MD PCP - GeneralFamily Medicine01/05/17
--- OUTSIDE RECORDS SUMMARY | 2025-07-28 08:13 | XMS_ITS | Patient Health Record ---
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 Name Role Phone Rony Blake Primary Care Provider Allergies Allergen (clinical drug ingredient) Drug/Non Drug Allergy documented on EMR Reaction Allergy Type Onset Date Status bee pollen Bee Pollen Unknown Drug Allergy ActiveciprofloxacinCiproUnknownDrug AllergyActivelevofloxacinlevoFLOXacinankle painDrug AllergyActiveacetaminophen / oxycodonePercocetUnknownDrug AllergyActive cefdinirCefdinirnausea and vomitingDrug AllergyActiveSubstance with sulfonamide structure and antibacterial mechanism of action (substance)Sulfa Antibioticsrash Drug AllergyActivetramadolTramadolhallucinatingDrug AllergyActive Results Component Value Reference Range Notes FREE T3 Reviewed date:09/23/2024 10:46:47 AM Interpretation: Performing Lab: Notes/Report: [facility] , Free T3 2.32 2.18-3.98 pg/mL Performing Lab:see noteML - [facility] LBPROF 14(COMP METB) Reviewed date:03/19/2025 12:50:19 PM Interpretation: Performing Lab: Notes/Report: [facility] ,Icieqd483031-453 mmol/LPotassium3.03.5-5.1 mmol/AVmzzsfvz45607-739 mmol/LCarbon Supqybq21.021.0-32.0 mmol/LAnion Gap14.5Gmoptxl30005-921 mg/dLBlood Urea Bkenjlmc67.07.0-18.0 mg/dLCreatinine1.800.55-1.02 mg/dLEstimated GFR ( Ntcetvr84>=60 mL/min/1.73m 2Estimated GFR (Non- Ame27>=60 mL/min/1.73m 2 BUN Creatinine Ratio15.6Fzzaxsw4.18.5-10.1 mg/dLBilirubin Total0.50.2-1.0 mg/dL Aspartate Amino Jnzmtjpvyzc6175-57 U/LAlanine Wfemhjdehadhvbpr1145-27 U/L Alkaline Awvfhgchqww34843-120 U/LTotal Protein7.06.4-8.2 g/dLAlbumin Level2.9 3.4-5.0 g/dLGlobulin4.1Albumin Globulin Ratio0.7Performing Lab:see noteML - [facility] LBLIPID PROFILE Reviewed date:09/23/2024 10:46:47 AM Interpretation: Performing Lab: Notes/Report: [facility] ,Odkxgndopmujm902<=150 mg/sZEqvfzqbkmub469<=200 mg/dLHDL Dtzowyqlksh2254-95 mg/dL > or =60 mg/dl - LOW CARDIOVASCULAR RISK <40 mg/dl - HIGH CARDIOVASCULAR RISK LDL Cholesterol Fljnpjoxlo65.0 <100 mg/dl OPTIMAL 100-129 mg/dl NEAR OR ABOVE OPTIMAL 130-159 mg/dl BORDERLINE HIGH 160-189 mg/dl HIGH >190 mg/dl VERY HIGH VLDL XRQRNLZDLYM43.4Chol HDL Ratio2.5 3.3 - 4.4 LOW RISK 4.4 - 7.1 AVERAGE RISK 7.1 - 11.0 MODERATE RISK >11.0 HIGH RISK Performing Lab:see noteML - [facility] LBPROF 14(COMP METB) Reviewed date:09/23/2024 10:46:47 AM Interpretation: Performing Lab: Notes/Report: [facility] ,Bqjgnl259161-863 mmol/LPotassium3.43.5-5.1 mmol/TEnqlgtaj60375-746 mmol/LCarbon Tpzvgfx61.621.0-32.0 mmol/LAnion Gap9.7Ghbsfuk30311-230 mg/dLBlood Urea Nitrogen 23.07.0-18.0 mg/dLCreatinine1.250.55-1.02 mg/dLEstimated GFR ( Sgettig53 >=60 mL/min/1.73m 2Estimated GFR (Non- Ame41>=60 mL/min/1.73m 2BUN Creatinine Ratio18.4Tbreqse2.68.5-10.1 mg/dLBilirubin Total0.50.2-1.0 mg/dL Aspartate Amino Fskkoxkflht7819-87 U/LAlanine Gnnfrjlpnfxbqolb1372-09 U/L Alkaline Jbecdmyzdwi7569-344 U/LTotal Protein6.86.4-8.2 g/dLAlbumin Level3.03.4- 5.0 g/dLGlobulin3.8Albumin Globulin Ratio0.8Performing Lab:see noteML - [facility] LBT4 Reviewed date:09/23/2024 10:46:47 AM Interpretation: Performing Lab: Notes/Report: [facility] ,T4 Thyroxine9.504.80-13.90 ug/dLPerforming Lab:see note - [facility] LBTSH Reviewed date:09/23/2024 10:46:47 AM Interpretation: Performing Lab: Notes/Report: [facility] ,Thyroid Stimulating Hormone0.1190.358-3.740 uIU/mLPerforming Lab:see note - [facility] LBVITAMIN D 25 [place] Reviewed date:09/23/2024 01:16:30 PM Interpretation: Performing Lab: Notes/Report: [facility] ,Vitamin D81.3 <20 ng/mL Vit D deficient 20-<30 ng/mL Vit D insufficient 30-100 ng/mL Vit D sufficient >100 ng/mL Potential Toxicity Performing Lab:see note - [facility] LBLIPASE Reviewed date:03/19/2025 12:50:19 PM Interpretation: Performing Lab: Notes/Report: [facility] ,Xwtoss31.016.0-77.0 U/LPerforming Lab:see note - [facility] LBCBC AUTO DIFF Reviewed date:03/19/2025 12:50:19 PM Interpretation: Performing Lab: Notes/Report: [facility] ,White Blood Count8.74.0-11.0 10 3/uLRed Blood Count3.074.20-5.40 10 6/uL Hemoglobin9.812.0-16.0 g/jPRhrqihebyw85.736.0-48.0 %Mean Corpuscular Yfxcgq35.7 81.0-99.0 fLMean Corpuscular Yukvuzypom59.926.7-34.0 pgMean Corpuscular HGB Conc 33.029.9-35.2 g/dLRed Cell Distribution Width13.911.0-15.0 %Platelet Yklbn672 150-450 10 3/uLMean Platelet Fcrtkt81.19.5-13.5 fLNeutrophils Percent Auto59.4 43.0-75.0 %Lymphocytes Percent Auto22.220.5-60.0 %Monocytes Percent Auto14.01.7- 12.0 %Eosinophils Percent Auto3.10.9-7.0 %Basophils Percent Auto0.50.2-2.0 % Immature Granulocytes Pct Auto0.80.0-0.5 %Neutrophils Absolute Auto5.11.4-6.5 10 3/uLLymphocytes Absolute Auto1.91.2-3.8 10 3/uLMonocytes Absolute Auto1.20.3-0.8 10 3/uLEosinophils Absolute Auto0.30.0-0.7 10 3/uLBasophils Absolute Auto0.00.0- 0.1 10 3/uLImmature Granulocytes Abs Auto0.070.00-0.03 10 3/uLPerforming Lab:see noteML - [facility] LBAMYLASE Reviewed date:03/19/2025 12:50:19 PM Interpretation: Performing Lab: Notes/Report: [facility] ,Fbdjrnk9427-677 U/LPerforming Lab:see noteML - [facility] LBUA DIP NONAUTO WO MICRO (80229) - IN OFFICE Reviewed date:03/10/2025 09:07:23 PM Interpretation: Performing Lab: Notes/Report: COLORpale yellowCLARITYCLEARGLUCOSENEGBILIRUBINNEGKETONENEGSPECIFIC GRAVITY1.010 RATMHUVFQH4CJDVQLTFPAJBEAGBHGCQAELXMJXJHYCVUCCGMIJWIXHJ ESTERASETRACECOVID-19, Flu A+B IH Reviewed date:03/10/2025 09:07:23 PM Interpretation: Performing Lab: Notes/Report: COVID-FLU A-FLU B-Control+IRON AND TIBC Reviewed date:03/20/2025 06:20:42 PM Interpretation: Performing Lab: Notes/Report: Comment Add to an already drawn sample [facility] ,Iron55.050.0-170.0 ug/dLTotal Iron Binding Zfeeuqeo558.0250.0-450.0 ug/dL Percent Iron Ozxoxjotga15.1Performing Lab:see note - [facility] LB UA DIP NONAUTO WO MICRO (30672) - IN OFFICE Reviewed date:03/10/2025 09:07:23 PM Interpretation: Performing Lab: Notes/Report: COLORlight yellowCLARITYclearGLUCOSEnegBILIRUBINnegKETONEnegSPECIFIC GRAVITY 1.165FNFTLxanVV4CYNZQUOtieGVIRYAALAZJPupfTTRWZXCtnyEWOCTFFEE ESTERASEnegBNP Reviewed date:09/23/2024 10:46:47 AM Interpretation: Performing Lab: Notes/Report: [facility] ,NT Pro B Type Natriuretic Mhpp3578.0<=1800.0 pg/mLRESULTS CALLED TO TEE STEARNS LPN at 1037Performing Lab:see note - [facility] LBBlood Culture 1 Reviewed date:03/25/2025 05:05:47 PM Interpretation: Performing Lab: Notes/Report: LEFT AC - AEROBIC ONLY [facility] ,Blood Culture 1See Below For Report Blood Culture 1 NG5D NO GROWTH AT 5 DAYS.^NO GROWTH AT 5 DAYS. Performing Lab:see note - [facility] LBBlood Culture 2 Reviewed date:03/25/2025 05:05:47 PM Interpretation: Performing Lab: Notes/Report: LEFT WRIST - PEDS [facility] ,Blood Culture 2See Below For Report Blood Culture 2 NG5D NO GROWTH AT 5 DAYS.^NO GROWTH AT 5 DAYS. Performing Lab:see note - [facility] LBLIPASE Reviewed date:03/20/2025 06:20:42 PM Interpretation: Performing Lab: Notes/Report: [facility] ,Apilgb42.016.0-77.0 U/LPerforming Lab:see note - [facility] LBPROF 14(COMP METB) Reviewed date:03/20/2025 06:20:42 PM Interpretation: Performing Lab: Notes/Report: [facility] ,Sevzle572358-384 mmol/LPotassium2.93.5-5.1 mmol/L RESULTS CALLED TO JAMES SIGALA RN @BY Crystal Hatfield at 0613 Fipunfbf26614-198 mmol/LCarbon Egubphz98.021.0-32.0 mmol/LAnion Gap10.9Glucose 24292-152 mg/dLBlood Urea Erhrdsuy70.07.0-18.0 mg/dLCreatinine2.070.55-1.02 mg/dLEstimated GFR ( Prinodi39>=60 mL/min/1.73m 2Estimated GFR (Non- Ame23>=60 mL/min/1.73m 2BUN Creatinine Ratio15.3Vldsgjm9.58.5-10.1 mg/dL Bilirubin Total0.30.2-1.0 mg/dLAspartate Amino Bddtouiagsn5046-60 U/LAlanine Pelngqmonlqxcytt5290-68 U/LAlkaline Bpqbjhogwjj0165-359 U/LTotal Protein5.86.4- 8.2 g/dLAlbumin Level2.23.4-5.0 g/dLGlobulin3.6Albumin Globulin Ratio0.6 Performing Lab:see note - [facility] LBCBC no Diff (Hemogram) Reviewed date:03/20/2025 06:20:42 PM Interpretation: Performing Lab: Notes/Report: [facility] ,White Blood Count6.54.0-11.0 10 3/uLRed Blood Count2.674.20-5.40 10 6/uL Hemoglobin8.312.0-16.0 g/qEWqguobctyf55.536.0-48.0 %Mean Corpuscular Jpozgp12.5 81.0-99.0 fLMean Corpuscular Hhncsjmomt84.126.7-34.0 pgMean Corpuscular HGB Conc 32.529.9-35.2 g/dLRed Cell Distribution Width14.011.0-15.0 %Platelet Maifo105 150-450 10 3/uLMean Platelet Volume9.79.5-13.5 fLPerforming Lab:see note - [facility] LBMAGNESIUM Reviewed date:03/21/2025 01:03:12 PM Interpretation: Performing Lab: Notes/Report: Comment Add to an already drawn sample [facility] ,Magnesium1.11.8-2.4 mg/dLPerforming Lab:see noteML - [facility] LB PROF 14(COMP METB) Reviewed date:03/23/2025 03:38:42 PM Interpretation: Performing Lab: Notes/Report: [facility] ,Slnjrj237023-013 mmol/LPotassium5.03.5-5.1 mmol/RSvdliucw99348-572 mmol/LCarbon Vxrpbag41.421.0-32.0 mmol/LAnion Gap12.9Xcxwllf40457-916 mg/dLBlood Urea Bzyyswst66.07.0-18.0 mg/dLCreatinine1.520.55-1.02 mg/dLEstimated GFR ( Gpnurcf01>=60 mL/min/1.73m 2Estimated GFR (Non- Ame33>=60 mL/min/1.73m 2 BUN Creatinine Ratio13.0Jqdjdjp3.88.5-10.1 mg/dLBilirubin Total0.50.2-1.0 mg/dL Aspartate Amino Rcxskinvvvy4835-46 U/LAlanine Poyilwpvqhhhqymk6192-67 U/L Alkaline Desqignuwfl22028-561 U/LTotal Protein5.96.4-8.2 g/dLAlbumin Level2.3 3.4-5.0 g/dLGlobulin3.6Albumin Globulin Ratio0.6Performing Lab:see noteML - [facility] LBPROF 14(COMP METB) Reviewed date:03/23/2025 03:38:42 PM Interpretation: Performing Lab: Notes/Report: [facility] ,Aovjop456311-666 mmol/LPotassium5.33.5-5.1 mmol/MXvdopopc54287-036 mmol/LCarbon Rqdfged51.321.0-32.0 mmol/LAnion Gap14.3Pqscsgn3532-466 mg/dLBlood Urea Nitrogen 22.07.0-18.0 mg/dLCreatinine1.630.55-1.02 mg/dLEstimated GFR ( Umvpxql70 >=60 mL/min/1.73m 2Estimated GFR (Non- Ame30>=60 mL/min/1.73m 2BUN Creatinine Ratio13.7Zfftdlf3.08.5-10.1 mg/dLBilirubin Total0.90.2-1.0 mg/dL Aspartate Amino Cfacjoujsiy45106-47 U/LAlanine Grdjyfimmosidkyv6713-68 U/L Alkaline Xlagzwmmtyn9766-773 U/LTotal Protein5.56.4-8.2 g/dLAlbumin Level1.93.4- 5.0 g/dLGlobulin3.6Albumin Globulin Ratio0.5Performing Lab:see noteML - [facility] no Diff (Hemogram) Reviewed date:03/23/2025 03:38:42 PM Interpretation: Performing Lab: Notes/Report: [facility] ,White Blood Count9.64.0-11.0 10 3/uLRed Blood Count3.084.20-5.40 10 6/uL Hemoglobin9.812.0-16.0 g/wSYekxltuynt79.136.0-48.0 %Mean Corpuscular Jasvph31.7 81.0-99.0 fLMean Corpuscular Hkdimtzkja30.826.7-34.0 pgMean Corpuscular HGB Conc 32.629.9-35.2 g/dLRed Cell Distribution Width14.811.0-15.0 %Platelet Tfkvt941 150-450 10 3/uLMean Platelet Amssqv50.49.5-13.5 fLPerforming Lab:see note - [facility] AUTO DIFF Reviewed date:09/05/2024 05:55:22 PM Interpretation: Performing Lab: Notes/Report: [facility] ,White Blood Count14.24.0-11.0 10 3/uLRed Blood Count3.094.20-5.40 10 6/uL Hemoglobin9.512.0-16.0 g/hNCdrtjjkujl43.336.0-48.0 %Mean Corpuscular Fxiupv64.8 81.0-99.0 fLMean Corpuscular Uxegjqxtct58.726.7-34.0 pgMean Corpuscular HGB Conc 32.429.9-35.2 g/dLRed Cell Distribution Width14.511.0-15.0 %Platelet Fmueb998 150-450 10 3/uLMean Platelet Volume9.49.5-13.5 fLNeutrophils Percent Auto82.4 43.0-75.0 %Lymphocytes Percent Auto7.920.5-60.0 %Monocytes Percent Auto8.81.7- 12.0 %Eosinophils Percent Auto0.10.9-7.0 %Basophils Percent Auto0.20.2-2.0 % Immature Granulocytes Pct Auto0.60.0-0.5 %Neutrophils Absolute Auto11.71.4-6.5 10 3/uLLymphocytes Absolute Auto1.11.2-3.8 10 3/uLMonocytes Absolute Auto1.20.3- 0.8 10 3/uLEosinophils Absolute Auto0.00.0-0.7 10 3/uLBasophils Absolute Auto0.0 0.0-0.1 10 3/uLImmature Granulocytes Abs Auto0.080.00-0.03 10 3/uLPerforming Lab:see noteML - [facility] LBLACTATE or LACTIC ACID Reviewed date:09/05/2024 05:55:22 PM Interpretation: Performing Lab: Notes/Report: [facility] ,Lactate/Lactic Acid2.30.4-2.0 mmol/LRESULTS CALLED TO YANA SZYMANSKI Performing Lab:see note - [facility] LBPROF 14(COMP METB) Reviewed date:09/05/2024 05:55:22 PM Interpretation: Performing Lab: Notes/Report: [facility] ,Lgtvqp270942-428 mmol/LPotassium4.63.5-5.1 mmol/UKneufbhl8875-393 mmol/LCarbon Wffxseo88.721.0-32.0 mmol/LAnion Gap14.1Keubkps17764-762 mg/dLBlood Urea Xtlxmwos11.07.0-18.0 mg/dLCreatinine2.060.55-1.02 mg/dLEstimated GFR ( Royczel01>=60 mL/min/1.73m 2Estimated GFR (Non- Ame23>=60 mL/min/1.73m 2 BUN Creatinine Ratio15.8Dcmhial6.08.5-10.1 mg/dLBilirubin Total0.50.2-1.0 mg/dL Aspartate Amino Orrhxvlbfyc5519-95 U/LAlanine Majnrdbkgjvelbrz635-94 U/LAlkaline Ffbzpxkbuma4312-441 U/LTotal Protein6.76.4-8.2 g/dLAlbumin Level2.83.4-5.0 g/dL Globulin3.9Albumin Globulin Ratio0.7Performing Lab:see noteML - [facility] LBBlood Culture 1 Reviewed date:09/15/2024 05:13:49 PM Interpretation: Performing Lab: Notes/Report: [facility] ,Blood Culture 1See Below For Report Blood Culture 1 NG5D NO GROWTH AT 5 DAYS. Performing Lab:see note - [facility] LBBlood Culture 2 Reviewed date:09/15/2024 05:13:49 PM Interpretation: Performing Lab: Notes/Report: [facility] ,Blood Culture 2See Below For Report Blood Culture 2 NG5D NO GROWTH AT 5 DAYS. Performing Lab:see noteML - [facility] LBProthrombin Time INR Reviewed date:09/05/2024 05:55:22 PM Interpretation: Performing Lab: Notes/Report: [facility] ,Prothrombin Time12.79.0-11.6 secINR1.22 DESIRED INR: 2.0-3.0 CONDITIONS NOT LISTED BELOW 2.5-3.5 FOR PROSTHETIC HEART VALVE REPLACEMENT 2.5-3.5 RECURRENT THROMBOSIS Performing Lab:see noteML - [facility] LBTroponin I High Sensitivity Reviewed date:09/05/2024 05:55:22 PM Interpretation: Performing Lab: Notes/Report: [facility] ,Troponin I High Qwjyvciszkb28.34.0-51.3 pg/mL CUT-OFF POINTS HAVE BEEN ESTABLISHED BASED ON THE FOURTH UNIVERSAL DEFINITION OF MYOCARDIAL INFARCTION. THE UPPER REFERENCE LIMIT (URL) OF TROPONIN, DEFINED THE 99TH PERCENTILE OF cTnI DISTRIBUTION IN A REFERENCE POPULATION, HAS BEEN CONFIRMED THE DECISION THRESHOLD FOR SC DIAGNOSIS. 99TH PERCENTILE = 51.4 PG/ML NOTE: HIGH-SENSITIVITY TROPONIN ASSAY IS NOT INTENDED TO BE USED IN ISOLATION BUT SHOULD BE INTERPRETED IN CONJUNCTION WITH OTHER DIAGNOSTIC AND CLINICAL INFORMATION. Performing Lab:see noteML - [facility] LBXR HAND LT MIN 3V Reviewed date:09/05/2024 05:59:46 PM Interpretation: Performing Lab: Notes/Report: Source Facility: [place] [address] [place] [address] XRay Report Signed Patient: OSCAR HORTA MR#: [id number] : 1940 Acct:[id number] Age/Sex: 83 / F ADM Date: 09/05/24 Loc: ER Attending Dr: Ordering Physician: Margie Tellez Date of Service: 09/05/24 Procedure(s): XR hand LT min 3V Accession Number(s): [id number] cc: Mateus Blake M.D.; Margie Tellez [place] [address] Patient Name: OSCAR HORTA MRN: [id number] date: 1940 Sex: F Assigned Patient Location: ED.MAIN Current Patient Location: ED.MAIN Accession/Order Number: [id number] Exam Date: 09/05/2024 17:05 Report Date: 09/05/2024 [...] M.D. Signed By: 09/05/241753 DD/ 51 TD/TT: Emt Driver:ECG 12 lead Reviewed date:09/08/2024 03:06:54 PM Interpretation: Performing Lab: Notes/Report: Source Facility: [place] [address] [place] [address] Electrocardiograph Report Signed Patient: OSCAR HORTA MR#: [id number] : 1940 Acct:[id number] Age/Sex: 83 / F ADM Date: 09/05/24 Loc: [place] 214-[address]: Mateus Blake M.D. Ordering Physician: Margie Tellez Date of Service: 09/05/24 Procedure(s): ECG 12 lead Accession Number(s): [id number] cc: 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 Signed By: 09/08/24 0738 DD/ 1645 TD/TT: Emt Driver:XR chest 1V Reviewed date:09/05/2024 05:59:46 PM Interpretation: Performing Lab: Notes/Report: Source Facility: [place] [address] [place] [address] XRay Report Signed Patient: OSCAR HORTA MR#: [id number] : 1940 Acct:[id number] Age/Sex: 83 / F ADM Date: 09/05/24 Loc: ER Attending Dr: Ordering Physician: Margie Tellez Date of Service: 09/05/24 Procedure(s): XR chest 1V Accession Number(s): [id number] cc: Mateus Blake M.D.; Margie Tellez [place] [address] Patient Name: OSCAR HORTA MRN: [id number] date: 1940 Sex: F Assigned Patient Location: ER Current Patient Location: ED.MAIN Accession/Order Number: [id number] Exam Date: 09/05/2024 17:05 Report Date: 09/05/2024 [...] M.D. Signed By: 09/05/241753 DD/ 51 TD/TT: Emt Driver:US venous doppler UE RT Reviewed date:09/05/2024 07:46:10 PM Interpretation: Performing Lab: Notes/Report: Source Facility: [place] [address] Ultrasound Report Signed Patient: OSCAR HORTA MR#: [id number] : 1940 Acct:[id number] Age/Sex: 83 / F ADM Date: 09/05/24 Loc: ER Attending Dr: Ordering Physician: Margie Tellez Date of Service: 09/05/24 Procedure(s): US venous doppler UE LT Accession Number(s): [id number] cc: Mateus Blake M.D.; Margie Tellez [facility] [address] [address] Patient Name: OSCAR HORTA MRN: [id number] date: 1940 Sex: F Assigned Patient Location: ER Current Patient Location: ER Accession/Order Number: [id number] Exam Date: 09/05/2024 17:50 Report Date: 09/05/2024 [...] M.D. Signed By: 09/05/241835 DD/ 33 TD/TT: Emt Driver:LACTATE or LACTIC ACID Reviewed date:09/06/2024 05:50:32 PM Interpretation: Performing Lab: Notes/Report: [facility] ,Lactate/Lactic Acid1.30.4-2.0 mmol/LPerforming Lab:see noteML - [facility] LBCBC AUTO DIFF Reviewed date:09/06/2024 05:50:32 PM Interpretation: Performing Lab: Notes/Report: [facility] ,White Blood Count9.94.0-11.0 10 3/uLRed Blood Count3.054.20-5.40 10 6/uL Hemoglobin9.412.0-16.0 g/uBHxlasdwoli16.836.0-48.0 %Mean Corpuscular Alsrsj11.4 81.0-99.0 fLMean Corpuscular Pkhrlkjpgp40.826.7-34.0 pgMean Corpuscular HGB Conc 32.629.9-35.2 g/dLRed Cell Distribution Width14.711.0-15.0 %Platelet Dnkgb442 150-450 10 3/uLMean Platelet Volume9.59.5-13.5 fLNeutrophils Percent Auto69.9 43.0-75.0 %Lymphocytes Percent Auto18.120.5-60.0 %Monocytes Percent Auto10.41.7- 12.0 %Eosinophils Percent Auto0.70.9-7.0 %Basophils Percent Auto0.30.2-2.0 % Immature Granulocytes Pct Auto0.60.0-0.5 %Neutrophils Absolute Auto6.91.4-6.5 10 3/uLLymphocytes Absolute Auto1.81.2-3.8 10 3/uLMonocytes Absolute Auto1.00.3-0.8 10 3/uLEosinophils Absolute Auto0.10.0-0.7 10 3/uLBasophils Absolute Auto0.00.0- 0.1 10 3/uLImmature Granulocytes Abs Auto0.060.00-0.03 10 3/uLPerforming Lab:see noteML - [facility] LBMAGNESIUM Reviewed date:09/06/2024 05:50:32 PM Interpretation: Performing Lab: Notes/Report: [facility] ,Magnesium1.01.8-2.4 mg/dLPerforming Lab:see noteML - [facility] LB PROF 14(COMP METB) Reviewed date:09/06/2024 05:50:32 PM Interpretation: Performing Lab: Notes/Report: [facility] ,Abeuwj302280-650 mmol/LPotassium4.23.5-5.1 mmol/IFavpnhcv79336-376 mmol/LCarbon Fjsnbrw77.121.0-32.0 mmol/LAnion Gap14.2Hfdwgbt4867-266 mg/dLBlood Urea Nitrogen 34.07.0-18.0 mg/dLCreatinine1.940.55-1.02 mg/dLEstimated GFR ( Utbivro00 >=60 mL/min/1.73m 2Estimated GFR (Non- Ame25>=60 mL/min/1.73m 2BUN Creatinine Ratio17.3Wgrjzyy0.88.5-10.1 mg/dLBilirubin Total0.60.2-1.0 mg/dL Aspartate Amino Fmhgzszgeny3013-75 U/LAlanine Lkmpubuwuwzmxkkf283-74 U/LAlkaline Dqtrhkzmbdj4963-588 U/LTotal Protein6.36.4-8.2 g/dLAlbumin Level2.43.4-5.0 g/dL Globulin3.9Albumin Globulin Ratio0.6Performing Lab:see note - [facility] LBTroponin I High Sensitivity Reviewed date:09/06/2024 05:50:32 PM Interpretation: Performing Lab: Notes/Report: [facility] ,Troponin I High Qhoqkfqaltx46.24.0-51.3 pg/mL CUT-OFF POINTS HAVE BEEN ESTABLISHED BASED ON THE FOURTH UNIVERSAL DEFINITION OF MYOCARDIAL INFARCTION. THE UPPER REFERENCE LIMIT (URL) OF TROPONIN, DEFINED THE 99TH PERCENTILE OF cTnI DISTRIBUTION IN A REFERENCE POPULATION, HAS BEEN CONFIRMED THE DECISION THRESHOLD FOR SC DIAGNOSIS. 99TH PERCENTILE = 51.4 PG/ML NOTE: HIGH-SENSITIVITY TROPONIN ASSAY IS NOT INTENDED TO BE USED IN ISOLATION BUT SHOULD BE INTERPRETED IN CONJUNCTION WITH OTHER DIAGNOSTIC AND CLINICAL INFORMATION. Performing Lab:see note - [facility] LBUS venous doppler LE BI Reviewed date:09/06/2024 05:50:32 PM Interpretation: Performing Lab: Notes/Report: Source Facility: [facility]-[address] [place] [address] Ultrasound Report Signed Patient: OSCAR HORTA MR#: [id number] : 1940 Acct:[id number] Age/Sex: 83 / F ADM Date: 09/05/24 Loc: [place] 214-[address]: Mateus Blake M.D. Ordering Physician: Mateus Blake M.D. Date of Service: 09/06/24 Procedure(s): US venous doppler LE BI Accession Number(s): [id number] cc: Mateus Blake M.D. [place] [address] Patient Name: OSCAR HORTA MRN: [id number] date: 1940 Sex: F Assigned Patient Location: [place] Current Patient Location: [place] Accession/Order Number: [id number] Exam Date: 09/06/2024 09:20 Report Date: 09/06/2024 [...] Signed By: 09/06/24 1003 DD/ 1000 TD/TT: Emt Driver:CBC AUTO DIFF Reviewed date:09/23/2024 10:46:47 AM Interpretation: Performing Lab: Notes/Report: [facility] ,White Blood Count7.34.0-11.0 10 3/uLRed Blood Count3.414.20-5.40 10 6/uL Gxznqwroff59.312.0-16.0 g/iENixkcdkniu72.236.0-48.0 %Mean Corpuscular Ajeqga37.4 81.0-99.0 fLMean Corpuscular Tkokavxlag71.226.7-34.0 pgMean Corpuscular HGB Conc 32.029.9-35.2 g/dLRed Cell Distribution Width14.811.0-15.0 %Platelet Xpfqy191 150-450 10 3/uLMean Platelet Volume8.99.5-13.5 fLNeutrophils Percent Auto56.7 43.0-75.0 %Lymphocytes Percent Auto27.920.5-60.0 %Monocytes Percent Auto8.51.7- 12.0 %Eosinophils Percent Auto6.00.9-7.0 %Basophils Percent Auto0.50.2-2.0 % Immature Granulocytes Pct Auto0.40.0-0.5 %Neutrophils Absolute Auto4.21.4-6.5 10 3/uLLymphocytes Absolute Auto2.01.2-3.8 10 3/uLMonocytes Absolute Auto0.60.3-0.8 10 3/uLEosinophils Absolute Auto0.40.0-0.7 10 3/uLBasophils Absolute Auto0.00.0- 0.1 10 3/uLImmature Granulocytes Abs Auto0.030.00-0.03 10 3/uLPerforming Lab:see noteML - [facility] LBGLYCOHEMOGLOBIN A1C Reviewed date:09/23/2024 10:46:47 AM Interpretation: Performing Lab: Notes/Report: [facility] ,Glycohemoglobin A1C6.44.5-6.2 % ADA RECOMMENDED LIMIT 4.0 - 6.0 ADA THERAPEUTIC TARGET < 7.0 ACTION SUGGESTED > 7.0 Estimated Average Bgueiwy419Srjvbautgy Lab:see note - [facility] LB IRON Reviewed date:09/23/2024 10:46:47 AM Interpretation: Performing Lab: Notes/Report: [facility] ,Iron56.050.0-170.0 ug/dLPerforming Lab:see [facility] [place] LBCT lumbar spine wo con Reviewed date:03/10/2025 09:07:23 PM Interpretation: Performing Lab: Notes/Report: Source Facility: [facility]-[address] [place] [address] CT Scan Report Signed Patient: OSCAR HORTA MR#: [id number] : 1940 Acct:[id number] Age/Sex: 84 / F ADM Date: 03/10/25 Loc: RAD Attending Dr: Kassandra Thomas NP Ordering Physician: Kassandra Thomas NP Date of Service: 03/10/25 Procedure(s): CT lumbar spine wo con Accession Number(s): [id number] cc: Mateus Blake M.D. [place] [id number] Patient Name: OSCAR HORTA MRN: [id number] date: 1940 Sex: F Assigned Patient Location: [facility] Current Patient Location: [facility] Accession/Order Number: [id number] Exam Date: 03/10/2025 13:07 Report Date: 03/10/2025 [...] Jr., D.O. 03/10/2025 1:13 PM Dictation Location: [place] [address] Electronically authenticated by: [id number] Y Date: 03/10/2025 13:13 Dictated By: Butch Quinones M.D. Signed By: 03/10/25 1315 DD/ 131 TD/TT: Emt Driver:XR lumbar spine 6V w bending Reviewed date:03/10/2025 09:07:23 PM Interpretation: Performing Lab: Notes/Report: Source Facility: [place] [address] [place] [address] XRay Report Signed Patient: OSCAR HORTA MR#: [id number] : 1940 Acct:[id number] Age/Sex: 84 / F ADM Date: 03/10/25 Loc: RAD Attending Dr: Kassandra Thomas NP Ordering Physician: Kassandra Thomas NP Date of Service: 03/10/25 Procedure(s): XR lumbar spine 6V w bending Accession Number(s): [id number] cc: Kassandra Thomas NP; Mateus Blake M.D. [place] [address] Patient Name: OSCAR HORTA MRN: [id number] date: 1940 Sex: F Assigned Patient Location: [facility] Current Patient Location: [facility] Accession/Order Number: [id number] Exam Date: 03/10/2025 13:42 Report Date: 03/10/2025 [...] Jr., D.O. 03/10/2025 1:46 PM Dictation Location: [place] [address] Electronically authenticated by: [id number] Y Date: 03/10/2025 13:46 Dictated By: Butch Quinones M.D. Signed By: 03/10/25 1349 DD/ 1346 TD/TT: Emt Driver:FERRITIN Reviewed date:03/20/2025 06:20:42 PM Interpretation: Performing Lab: Notes/Report: Comment Add to an already drawn sample [facility] ,Ewiqzgix931.08.0-252.0 ng/mLPerforming Lab:see noteML - [facility] LBCampylobacter Culture Reviewed date:03/25/2025 05:05:47 PM Interpretation: Performing Lab: Notes/Report: [facility] ,Campylobacter CultureSee Below For Report Campylobacter Culture No Campylobacter species isolated. Performing Lab:see noteLC - [facility] LBECG 12 lead Reviewed date:03/20/2025 06:20:42 PM Interpretation: Performing Lab: Notes/Report: Source Facility: [place] [address] [place] [address] Electrocardiograph Report Signed Patient: OSCAR HORTA MR#: [id number] : 1940 Acct:[id number] Age/Sex: 84 / F ADM Date: 03/19/25 Loc: [place] 217-[address]: Marly Arredondo M.D. Ordering Physician: Juliet German M.D. Date of Service: 03/19/25 Procedure(s): ECG 12 lead Accession Number(s): [id number] cc: 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 Signed By: 03/20/25 1036 DD/ 1528 TD/TT: Emt Driver:CT abdomen pelvis wo con Reviewed date:03/19/2025 06:23:50 PM Interpretation: Performing Lab: Notes/Report: Source Facility: [place] [address] [place] [address] CT Scan Report Signed Patient: OSCAR HORTA MR#: [id number] : 1940 Acct:[id number] Age/Sex: 84 / F ADM Date: 03/19/25 Loc: ER Attending Dr: Ordering Physician: Juliet German M.D. Date of Service: 03/19/25 Procedure(s): CT abdomen pelvis wo con Accession Number(s): [id number] cc: Mateus Blake M.D. [place] [id number] Patient Name: OSCAR HORTA MRN: [facility]:[id number] date: 1940 Sex: F Assigned Patient Location: ER Current Patient Location: ER Accession/Order Number: [id number] Exam Date: 03/19/2025 17:07 Report Date: 03/19/2025 [...] Nowak M.D. 03/19/2025 5:14 PM Dictation Location: [place] [address] Electronically authenticated by: [id number] Y Date: 03/19/2025 17:14 Dictated By: Duong Nowak M.D. Signed By: 03/19/251715 DD/ 13 TD/TT: Emt Driver:E coli Shiga Toxin EIA Reviewed date:03/25/2025 05:05:47 PM Interpretation: Performing Lab: Notes/Report: [facility] ,E coli Shiga Toxin EIASee Below For Report E coli Shiga Toxin EIA E coli Shiga Toxin EIANegative E coli Shiga Toxin EIA E coli Shiga Toxin EIAPerformed at: [facility] E coli Shiga Toxin EIA E coli Shiga Toxin [id number] [place], [place] [id number] E coli Shiga Toxin EIA E coli Shiga Toxin EIALab Director: Esteban Martinez PhD, Phone: [phone] E coli Shiga Toxin EIA Performing Lab:see note LC - [facility] LB SEE REPORT - Business Information Analyst Id information not found for OBX-specific budget coordinator legend HEMOGRAM AND PLATEL Reviewed date:03/20/2025 06:20:42 PM Interpretation: Performing Lab: Notes/Report: [facility] ,Hemoglobin8.112.0-16.0 g/wNQmdrsktgoz42.436.0-48.0 %Performing Lab:see noteML - [facility] [place] LBType and Screen Reviewed date:03/20/2025 06:20:42 PM Interpretation: Performing Lab: Notes/Report: [facility] ,Blood TypeA PositiveAntibody ScreenNEGATIVEHEMOGRAM AND PLATEL Reviewed date:03/21/2025 01:03:12 PM Interpretation: Performing Lab: Notes/Report: [facility] ,Hemoglobin7.912.0-16.0 g/hHRhgincjeqt90.436.0-48.0 %Performing Lab:see noteML - [facility] [place] LBPROF 14(COMP METB) Reviewed date:03/21/2025 01:03:12 PM Interpretation: Performing Lab: Notes/Report: [facility] ,Xwmgwe790984-374 mmol/LPotassium3.63.5-5.1 mmol/VTbcbynxk22524-524 mmol/LCarbon Ichkffm80.821.0-32.0 mmol/LAnion Gap9.6Xiuhuna1836-752 mg/dLBlood Urea Nitrogen 21.07.0-18.0 mg/dLCreatinine1.490.55-1.02 mg/dLEstimated GFR ( Gcpuprd70 >=60 mL/min/1.73m 2Estimated GFR (Non- Ame34>=60 mL/min/1.73m 2BUN Creatinine Ratio14.2Tazzphs4.28.5-10.1 mg/dLBilirubin Total0.30.2-1.0 mg/dL Aspartate Amino Vdiuycwpjvs2040-16 U/LAlanine Oqaicwgvopjmtxaq8022-89 U/L Alkaline Jbzprdttugw97158-843 U/LTotal Protein5.66.4-8.2 g/dLAlbumin Level2.2 3.4-5.0 g/dLGlobulin3.4Albumin Globulin Ratio0.6Performing Lab:see noteML - [facility] [place] LBCBC no Diff (Hemogram) Reviewed date:03/21/2025 01:03:12 PM Interpretation: Performing Lab: Notes/Report: [facility] ,White Blood Count7.24.0-11.0 10 3/uLRed Blood Count2.714.20-5.40 10 6/uL Hemoglobin8.412.0-16.0 g/iUJgzhqmmglk14.936.0-48.0 %Mean Corpuscular Hhrmix95.3 81.0-99.0 fLMean Corpuscular Fhzzlgrfzm15.026.7-34.0 pgMean Corpuscular HGB Conc 31.229.9-35.2 g/dLRed Cell Distribution Width14.411.0-15.0 %Platelet Jyizh243 150-450 10 3/uLMean Platelet Lybitz28.19.5-13.5 fLPerforming Lab:see noteML - [facility] [place] LBXR hip RT 2V w/ pelvis Reviewed date:03/21/2025 01:03:12 PM Interpretation: Performing Lab: Notes/Report: Source Facility: [facility]-[address] [place] [address] [place] [address] XRay Report Signed Patient: OSCAR HORTA MR#: [id number] : 1940 Acct:[id number] Age/Sex: 84 / F ADM Date: 03/19/25 Loc: [place] 217-[address]: Marly Arredondo M.D. Ordering Physician: Marly Arredondo M.D. Date of Service: 03/21/25 Procedure(s): XR hip RT 2V w/ pelvis Accession Number(s): [id number] cc: Mateus Blake M.D.; Marly Arredondo M.D. [place] [address] Patient Name: OSCAR HORTA MRN: [id number] date: 1940 Sex: F Assigned Patient Location: [place] Current Patient Location: [place] Accession/Order Number: [id number] Exam Date: 03/21/2025 10:13 Report Date: 03/21/2025 [...] Hernandez M.D. 03/21/2025 10:15 AM Dictation Location: [place] [address] Electronically authenticated by: [id number] Y Date: 03/21/2025 10:15 Dictated By: Coco Hernandez M.D. Signed By: 03/21/25 1018 DD/ 1015 TD/TT: Emt Driver:CBC no Diff (Hemogram) Reviewed date:03/23/2025 03:38:42 PM Interpretation: Performing Lab: Notes/Report: [facility] ,White Blood Count8.64.0-11.0 10 3/uLRed Blood Count2.894.20-5.40 10 6/uL Hemoglobin9.012.0-16.0 g/sBLdnzmbwsfz51.736.0-48.0 %Mean Corpuscular Nakuee25.3 81.0-99.0 fLMean Corpuscular Twlgzvtcuu82.126.7-34.0 pgMean Corpuscular HGB Conc 31.429.9-35.2 g/dLRed Cell Distribution Width14.811.0-15.0 %Platelet Gpbaq253 150-450 10 3/uLMean Platelet Jqncso46.09.5-13.5 fLPerforming Lab:see noteML - [facility] LBMAGNESIUM Reviewed date:03/23/2025 03:38:42 PM Interpretation: Performing Lab: Notes/Report: [facility] ,Magnesium1.81.8-2.4 mg/dLPerforming Lab:see noteML - [facility] [place] LB PHOSPHORUS Reviewed date:03/23/2025 03:38:42 PM Interpretation: Performing Lab: Notes/Report: [facility] ,Phosphorus3.52.6-4.7 mg/dLPerforming Lab:see noteML - [facility] LB XR lumbar spine min 4V Reviewed date:07/05/2025 03:17:55 PM Interpretation: Performing Lab: Notes/Report: Source Facility: [facility]-[address] [place] [address] [place] [address] XRay Report Signed Patient: OSCAR HORTA MR#: [id number] : 1940 Acct:[id number] Age/Sex: 84 / F ADM Date: 07/04/25 Loc: RAD Attending Dr: Mateus Blake M.D. Ordering Physician: Mateus Blake M.D. Date of Service: 07/04/25 Procedure(s): XR lumbar spine min 4V Accession Number(s): [id number] cc: Mateus Blake M.D. [place] [address] Patient Name: OSCAR HORTA MRN: [id number] date: 1940 Sex: F Assigned Patient Location: [facility] Current Patient Location: [facility] Accession/Order Number: [id number] Exam Date: 07/04/2025 11:45 Report Date: 07/04/2025 21:24 At the request of: MATEUS BLAKE MD Procedure: XR lumbar spine min 4V LUMBAR SPINE - 5 views CLINICAL HISTORY: back pain COMPARISON: CT lumbar spine 03/10/2025 FINDINGS: Straightening. Multilevel disc space narrowing and facet arthropathy. Multilevel anterolisthesis L2 on L3, L3-4 L4-5 identified measuring up to 2 to 3 mm. Disc space narrowing greatest L2-L3. Moderate disc space narrowing elsewhere. Multilevel facet arthropathy. Vertebral heights maintained. There are pacemaker leads projecting overlying the cardiac shadow. XR/XR lumbar spine min 4V IMPRESSION: NO ACUTE BONY INJURY. OSTEOPENIA AND MULTILEVEL DEGENERATIVE CHANGES. OVERALL FINDINGS APPEAR SIMILAR TO THE RECENT PERFORMED CT LUMBAR SPINE. Impression dictated by: Duong Nowak M.D. 07/04/2025 9:24 PM Dictation Location: [place] [address] Electronically authenticated by: [id number] Y Date: 07/04/2025 21:24 Dictated By: Duong Nowak M.D. Signed By: 07/04/252126 DD/ 23 TD/TT: Emt Driver:RICHARD hip BI w PEL 1V Reviewed date:07/05/2025 03:17:55 PM Interpretation: Performing Lab: Notes/Report: Source Facility: [place] [address] XRay Report Signed Patient: OCSAR HORTA MR#: [id number] : 1940 Acct:[id number] Age/Sex: 84 / F ADM Date: 07/04/25 Loc: [facility] Attending Dr: Mateus Blake M.D. Ordering Physician: Mateus Blake M.D. Date of Service: 07/04/25 Procedure(s): XR hip BI w PEL 1V Accession Number(s): [id number] cc: Mateus Blake M.D. [place] [address] Patient Name: OSCAR HORTA MRN: [id number] date: 1940 Sex: F Assigned Patient Location: [facility] Current Patient Location: [facility] Accession/Order Number: [id number] Exam Date: 07/04/2025 11:45 Report Date: 07/04/2025 20:26 At the request of: MATEUS BLAKE MD Procedure: XR hip BI w PEL 1V ADULT PELVIS WITH BILATERAL HIPS - 5 views total CLINICAL HISTORY: back pain COMPARISON: 03/21/2025 FINDINGS: Negative acute osseous abnormality. Moderate joint space narrowing both hips. Moderate degenerative changes both sacroiliac joints. Moderate retained stool rectosigmoid junction may represent fecal impaction and/or constipation. Degenerative changes lower lumbar spine. XR/XR hip BI w PEL 1V IMPRESSION: NO ACUTE PLAIN FILM FINDINGS. MODERATE DEGENERATIVE CHANGES Impression dictated by: Duong Nowak M.D. 07/04/2025 8:26 PM Dictation Location: [place] [address] Electronically authenticated by: [id number] Y Date: 07/04/2025 20:26 Dictated By: Duong Nowak M.D. Signed By: 07/04/252028 DD/ 25 TD/TT: Emt Driver:RICHARD knee DAVID 3V Reviewed date:07/05/2025 03:17:55 PM Interpretation: Performing Lab: Notes/Report: Source Facility: [place] [address] [place] [address] XRay Report Signed Patient: OSCAR HORTA MR#: [id number] : 1940 Acct:[id number] Age/Sex: 84 / F ADM Date: 07/04/25 Loc: [facility] Attending Dr: Mateus Blake M.D. Ordering Physician: Mateus Blake M.D. Date of Service: 07/04/25 Procedure(s): XR knee DAVID 3V Accession Number(s): [id number] cc: Mateus Blake M.D. [place] [address] Patient Name: OSCAR HORTA MRN: [id number] date: 1940 Sex: F Assigned Patient Location: [facility] Current Patient Location: Accession/Order Number: [id number] Exam Date: 07/04/2025 11:45 Report Date: 07/05/2025 09:07 At the request of: MATEUS BLAKE MD Procedure: XR knee DAVID 3V 3 views both knees HISTORY: Fell June 12. Bilateral knee pain Right vascular stent present. Atherosclerosis. Adequate bony alignment without acute displaced fracture. No significant joint effusion. Extensive medial left knee degeneration. Bilateral patellar enthesophytes. Unremarkable soft tissues. XR/XR knee DAVID 3V IMPRESSION: No acute displaced fracture. Impression dictated by: Sudhir Garrett M.D. 07/05/2025 9:07 AM Dictation Location: [place] [address] Electronically authenticated by: [id number] Y Date: 07/05/2025 09:07 Dictated By: Sudhir Garrett D.O. Signed By: 07/05/2510 DD/ 6 TD/TT: Emt Driver:AMYLASE Reviewed date:03/19/2025 06:23:50 PM Interpretation: Performing Lab: Notes/Report: [facility] ,Bpywhsu1693-847 U/LPerforming Lab:see noteML - [facility] LBCBC AUTO DIFF Reviewed date:03/19/2025 06:23:50 PM Interpretation: Performing Lab: Notes/Report: [facility] ,White Blood Count8.44.0-11.0 10 3/uLRed Blood Count3.184.20-5.40 10 6/uL Bemczktnsb63.112.0-16.0 g/uPNsjmgcdiml92.436.0-48.0 %Mean Corpuscular Jcnjtx37.6 81.0-99.0 fLMean Corpuscular Uuymbetssz30.826.7-34.0 pgMean Corpuscular HGB Conc 33.229.9-35.2 g/dLRed Cell Distribution Width13.911.0-15.0 %Platelet Hkxwr469 150-450 10 3/uLMean Platelet Volume9.69.5-13.5 fLNeutrophils Percent Auto56.8 43.0-75.0 %Lymphocytes Percent Auto22.720.5-60.0 %Monocytes Percent Auto15.71.7- 12.0 %Eosinophils Percent Auto3.40.9-7.0 %Basophils Percent Auto0.70.2-2.0 % Immature Granulocytes Pct Auto0.70.0-0.5 %Neutrophils Absolute Auto4.81.4-6.5 10 3/uLLymphocytes Absolute Auto1.91.2-3.8 10 3/uLMonocytes Absolute Auto1.30.3- 0.8 10 3/uLEosinophils Absolute Auto0.30.0-0.7 10 3/uLBasophils Absolute Auto0.1 0.0-0.1 10 3/uLImmature Granulocytes Abs Auto0.060.00-0.03 10 3/uLPerforming Lab:see noteML - [facility] LBLIPASE Reviewed date:03/19/2025 06:23:50 PM Interpretation: Performing Lab: Notes/Report: [facility] ,Txnbrh279.016.0-77.0 U/LPerforming Lab:see noteML - [facility] LB LIVER PROFILE Reviewed date:03/19/2025 06:23:50 PM Interpretation: Performing Lab: Notes/Report: [facility] ,Bilirubin Total0.50.2-1.0 mg/dLBilirubin Direct0.10.0-0.2 mg/dLAspartate Amino Zfxuqbyeosj7661-41 U/LAlanine Zembkhkqljksazwt3320-76 U/LAlkaline Dfglqsdpuei166 46-116 U/LTotal Protein7.06.4-8.2 g/dLAlbumin Level2.93.4-5.0 g/dLGlobulin4.1 Albumin Globulin Ratio0.7Performing Lab:see noteML - [facility] LB PROF CHEM 8 (BAS METB) Reviewed date:03/19/2025 06:23:50 PM Interpretation: Performing Lab: Notes/Report: [facility] ,Xjwduc993705-410 mmol/LPotassium3.03.5-5.1 mmol/PZluyiaga53357-457 mmol/LCarbon Kpuzqno85.821.0-32.0 mmol/LAnion Gap16.8Bafpsep69395-593 mg/dLBlood Urea Rvntfkuz82.07.0-18.0 mg/dLCreatinine2.020.55-1.02 mg/dLEstimated GFR ( Cdakphd80>=60 mL/min/1.73m 2Estimated GFR (Non- Ame24>=60 mL/min/1.73m 2 BUN Creatinine Ratio14.8Jvxqiql4.38.5-10.1 mg/dLPerforming Lab:see noteML - [facility] LBUA RANDOM W or MICROSCOPIC Reviewed date:03/19/2025 06:23:50 PM Interpretation: Performing Lab: Notes/Report: SOURCE: [facility] ,Color UrineLT. YELLOWYELLOWClarity UrineCLEARCLEARSpecific [place] Urine1.010 1.005-1.025pH Urine6.05.0-9.0Protein UrineNEGATIVENEG/TRACE mg/dLGlucose Urine UANEGATIVENEGATIVE mg/dLBilirubin UrineNEGATIVENEGATIVEKetones UrineNEGATIVE NEGATIVE mg/dLBlood UrineNEGATIVENEGATIVENitrite UrineNEGATIVENEGATIVE Urobilinogen Urine0.20.2-1.0 EU/dLLeukocyte Esterase UrineNEGATIVENEGATIVEWBC Urine0-2NONE SEEN #/HPFRBC Urine0-20-2 #/HPFBacteria UrineTRACENONE SEEN #/HPF Mucus UrineNONE SEENNONE SEENSquamous Epithelial Cell UrineFEWNONE/RARE #/LPF Transitional Epi Cells UrineRARENONE SEEN #/LPFCrystals Seen?None SeenNone Seen #/HPFCast Seen?NONE SEENNONE SEEN #/LPFUrine Culture IndicatedNOPerforming Lab: see noteML - [facility] LBE coli Shiga Toxin EIA Reviewed date:03/23/2025 03:38:42 PM Interpretation: Performing Lab: Notes/Report: [facility] ,E coli Shiga Toxin EIASee Below For Report E coli Shiga Toxin EIA E coli Shiga Toxin EIANegative E coli Shiga Toxin EIA E coli Shiga Toxin EIAPerformed at: - [facility] E coli Shiga Toxin EIA E coli Shiga Toxin [id number] [place], [place] [id number] E coli Shiga Toxin EIA E coli Shiga Toxin EIALab Director: Esteban Martinez PhD, Phone: [phone] E coli Shiga Toxin EIA Performing Lab:see note LC - [facility] LB SEE REPORT - Business Information Analyst Id information not found for OBX-specific budget coordinator legend Salmonella/Shigella Screen Reviewed date:03/25/2025 05:05:47 PM Interpretation: Performing Lab: Notes/Report: [facility] ,Salmonella/Shigella ScreenSee Below For Report Salmonella/Shigella Screen Salmonella/Shigella ScreenNo Salmonella or Shigella recovered. Salmonella/Shigella Screen Performing Lab:see noteLC - [facility] LB Reason For Referral Reason Patient currently at the [facility] please call [phone] ask for 200 beck nurse Diagnosis 1 Anemia, iron deficie ncy (D50.9) Referral Organization [facility] Referring Provider First Name Rony Referring Provider Last Name [facility] Referring Provider [facility] Referred Provider Specialty Gastroentero logy Referral Priority Routine Diagnosis 1 Hip pain, unspecifie d laterality (M25.559) Diagnosis 2 Knee pain, unspecifi ed laterality (M25.569) Referral Organization [facility] Referring Provider First Name Rony Referring Provider Last Name [facility] Referring Provider [facility] Referred Provider Mor Cutler Referred Provider Specialty Orthopedic S urgery Referral Priority Routine Medications Medication SIG (Take, [...] Oil 1000 MG1 capsule Orally twice a day02/08/2024ctiveFreeStyle Sami 2 [place] -Use reader multiple times daily to check glucose DX E11.9; Duration: 730 days Patients reader is not reading accurately even with new patch applied- please send new reader. Thank You05/01/2024ctiveBasaglar KwikPen 100 UNIT/ML 10 units daily Subcutaneous daily; Duration: 30 days DX E11.9 5ActiveSucralfate 1 GMTAKE 1 TABLET BY MOUTH FOUR TIMES A DAY *BEFORE MEALS AND AT BEDTIME* 30; Duration: 90ActiveTylenol 325 MG2 tablet as needed Orally every 4 hrsActiveVentolin HFA 108 (90 Base) MCG/ACT2 puff as needed Inhalation every 4 axjMYU32/04/2024ActivePantoprazole Sodium 40 MGTAKE 1 TABLET BY MOUTH TWICE A DAY; Duration: ActivemetFORMIN HCl 500 MGTAKE 1 TABLET BY MOUTH TWICE A DAY; Duration: ActivePotassium Chloride ER 10 MEQ1 tablet with food Orally Twice a day; Duration: 30 days5ActiveGabapentin 100 MG1 capsule Orally twice daily; Duration: 30 daysActiveOndansetron 4 MG1 tablet on the tongue and allow to dissolve Orally qid5ActivetraMADol HCl 50 MG 2 tablet Orally every 6 hours; Duration: 30 days As needed R26.89 5ActiveSimvastatin 40 MG1 tablet in the evening Orally Once a day; Duration: 90 daysActiveAlbuterol Sulfate (2.5 MG/3ML) 0.083%3 mL as needed Inhalation every 6 hrs; Duration: 30 daysDx: J44.9ActiveVitamin D3 125 MCG (5000 UT)1 capsule Orally Once a day02/08/2024ctiveLevothyroxine Sodium 112 MCGTAKE 1 TABLET BY MOUTH EVERY DAY; Duration: 90 daysActiveLiothyronine Sodium 5 MCG2 tablet on an empty stomach Orally Once a day; Duration: 90 daysActiveMetoprolol Succinate ER 200 MGTAKE 1 TABLET BY MOUTH EVERY DAY; Duration: 90Active hydrALAZINE HCl 100 MG1 tablet with food Orally TID if SBP>130; Duration: 90 daysPRNActiveHYDROcodone-Acetaminophen 5-325 MG 1 tablet Orally qid - prn; Duration: 7 days M54.50 PRN02/12/2024ctiveAnastrozole 1 MG1 tablet Orally Once a dayActiveAspirin 81 81 MG1 tablet Orally Once a dayActiveHumaLOG 100 UNIT/MLas directed Injection sliding scale- 141-200 3 units; 201-250 5units; 251-300 8units; 301-350 12 uni ts; 351-400 15 units; over 400 15 units and CALL RCLRKC244Active Ketoconazole 2 %1 application Externally Twice a day; Duration: 64GKC0702/08/2024 ActivepredniSONE 5 MG2 tablet with food or milk Orally Once a day; Duration: 30 days5ActiveLeflunomide 20 MG1 tablet Orally Once a day5Active Hyoscyamine Sulfate 0.125 MG1-2 tabs SL SL every 4 hrs PRN abd pain03/19/2025 ActiveIsosorbide Mononitrate ER 60 MGTAKE 1 TABLET BY MOUTH EVERY DAY; Duration: 90Active Immunizations Vaccine Route Administration Date Status Comme nts Flu, Fluad (07108) 65 yrs and older, single-dose syringe (8023-9771) IM Intramuscular 06/25/2024 Administered Social History Tobacco [...] alcohol in the p ast year? No Mgmwib1OpugursgsgedacRwlxkrnrNFZNU-G (Standard) Question Answer Notes Did you have a drink containing alcohol in the p ast year? 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) ActiveconfirmedProblemAcute on chronic diastolic heart failure (768318939)Acute on chronic diastolic (congestive) heart failure (I50.33)ActiveconfirmedProblem Acute exacerbation of chronic obstructive airways disease (544190881)Chronic obstructive pulmonary disease with (acute) exacerbation (J44.1)Activeconfirmed ProblemPrimary gout (36048151)Idiopathic gout, multiple sites (M10.09)Active confirmedProblemOsteoarthritis (017134755)Unspecified osteoarthritis, unspecified site (M19.90)ActiveconfirmedProblemDegeneration of cervical intervertebral disc (59014905)Other cervical disc degeneration, cervicothoracic region (M50.33)ActiveconfirmedProblemChronic kidney disease stage 2 (574205537) Chronic kidney disease, stage 2 (mild) (N18.2)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, 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)ActiveconfirmedProblem Abnormal gait (95387432)Other abnormalities of gait and mobility (R26.89)Active confirmedProblemWeakness (71970307)Weakness (R53.1)ActiveconfirmedProblemHigh grade squamous intraepithelial lesion on anal Papanicolaou smear (799979834753816)High grade squamous intraepithelial lesion on cytologic smear of anus (HGSIL) (R85.613)ActiveconfirmedProblemMorbid obesity (148832076)Morbid obesity (E66.01)ActiveconfirmedProblemHypertension (80777469)Hypertension (I10) ActiveconfirmedProblemChronic obstructive pulmonary disease (85033491)Chronic obstructive pulmonary disease (COPD) (J44.9)ActiveconfirmedProblem Gastroesophageal reflux disease (247643158)GERD (gastroesophageal reflux disease) (K21.9)ActiveconfirmedProblemChronic kidney disease (407966629)Chronic kidney disease (N18.9)ActiveconfirmedProblemCoronary artery disease (61028272) CAD (coronary artery disease) (I25.10)ActiveconfirmedProblemHypertension (71772792)HTN (hypertension) (I10)ActiveconfirmedProblemTachycardia (0833255) Tachycardia (R00.0)ActiveconfirmedProblemHypothyroid (66470097)Hypothyroid (E03.9)ActiveconfirmedProblemOsteopenia (623020297)Osteopenia (M85.80)Active confirmedProblemChronic kidney disease stage 2 (875151588)Chronic kidney disease (CKD) stage G2/A1, mildly decreased glomerular filtration rate (GFR) pxacpqc81- 89 mL/min/1.73 square meter and albuminuria creatinine ratio less than 30 mg/g (N18.2)ActiveconfirmedProblemHip pain (96642243)Hip pain (M25.559)Active confirmedProblemUrinary incontinence (374134940)Urinary incontinence (R32)Active confirmedProblemParoxysmal atrial fibrillation (573405117)Paroxysmal atrial fibrillation (I48.0)ActiveconfirmedProblemAtrial fibrillation (29152886)Atrial fibrillation (I48.91)ActiveconfirmedProblemAcute combined systolic and diastolic heart failure (407939923613804)Acute combined systolic (congestive) and diastolic (congestive) heart failure (I50.41)ActiveconfirmedProblemType 2 diabetes mellitus (78415597)Type 2 diabetes mellitus (E11.9)Activeconfirmed ProblemBack pain (191647000)Back pain (M54.9)ActiveconfirmedProblemRheumatoid arthritis (79236475)RA (rheumatoid arthritis) (M06.9)ActiveconfirmedProblem Lumbar radiculopathy (669334479)Lumbar radiculopathy (M54.16)Activeconfirmed ProblemBronchitis (26862770)Bronchitis (J40)ActiveconfirmedProblem Hypertriglyceridemia (756235483)Hypertriglyceridemia (E78.1)Activeconfirmed ProblemEdema (325280199)Edema leg (R60.0)ActiveconfirmedProblemRectal bleeding (46637432)Rectal bleeding (K62.5)ActiveconfirmedProblemAcquired hypothyroidism (009274643)Acquired hypothyroidism (E03.9)ActiveconfirmedProblemIron deficiency anemia (51349450)Iron deficiency anemia (D50.9)ActiveconfirmedProblem Inflammation of bursa of olecranon (654796688)Olecranon bursitis of left elbow (M70.22)ActiveconfirmedProblemChronic diastolic heart failure (556470050)Chronic diastolic heart failure (I50.32)ActiveconfirmedProblemIron deficiency anemia (99460334)Anemia, iron deficiency (D50.9)ActiveconfirmedProblemGastrointestinal hemorrhage (54179246)GI bleed (K92.2)ActiveconfirmedProblemDiverticular disease of colon (029762394)Colon, diverticulosis (K57.30)ActiveconfirmedProblemRight lower lobe pneumonia (387336480)Right lower lobe pneumonia (J18.9)Active confirmedProblemAsthma without status asthmaticus (50038349)AB (asthmatic bronchitis) (J45.909)ActiveconfirmedProblemChronic congestive heart failure (26079270)Chronic CHF (I50.9)ActiveconfirmedProblemPeripheral vascular disease (786459585)Other peripheral vascular disease (I73.89)ActiveconfirmedProblem Anemia of renal disease (076434403)Anemia of renal disease (D63.1)Active confirmedProblemArteriosclerosis of artery of extremity (disorder) (736919360) 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89)ActiveconfirmedProblemDiabetes mellitus type II (23337538)DM (diabetes mellitus), type 2 (E11.9)ActiveconfirmedProblemRheumatoid arthritis (85842751)Rheumatoid arthritis flare (M06.9)ActiveconfirmedProblem Peripheral vertigo (75554618)Vertigo, peripheral (H81.399)ActiveconfirmedProblem Pure hypercholesterolemia (646916214)Pure hypercholesterolemia, unspecified (E78.00)ActiveconfirmedProblemMalignant neoplasm of female breast (779838851) Invasive ductal carcinoma of breast, 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)ActiveconfirmedProblemType II diabetes mellitus without complication (699920414)Controlled type 2 diabetes mellitus (E11.9)ActiveconfirmedProblemHuman papillomavirus (7292834)Human papillomavirus (A63.0)ActiveconfirmedProblemAcquired thrombocytopenia (46026141) Acquired thrombocytopenia (D69.6)ActiveconfirmedProblemMalnutrition of moderate degree (Carmen: 60% to less than 75% of standard weight) (63878570)Moderate protein malnutrition (E44.0)ActiveconfirmedProblemBruising (046307481)Bruising (T14.8XXA)ActiveconfirmedProblemType II diabetes mellitus without complication (837583265)Diabetes (E11.9)ActiveconfirmedProblemDiabetes mellitus (97586223) Diabetes mellitus (E11.9)ActiveconfirmedProblemChronic kidney disease stage 4 (890638545)Acute worsening of stage 4 chronic kidney disease (N18.4)Active confirmed Vital Signs Temperature 97.6 degrees Fahrenheit 10/14/2024 Bbsvymaa90 %10/14/2024lood pressure wmedtgeya60 mm Hg07/04/20250257Yilstm47 in 07/04/2025lood pressure xhenvvpz417 mm Hg07/04/20252113Jvfgdj641 lbs1MI 25.32 kg/m207/04/2025 Procedures Procedure Date Ordered Date Performed Result Body Sit e EAR IRRIGATION - performed 03/19/2025 N/AEAR IRRIGATION - qhicpkamo87/27/2025N/A Encounters Encounter Location Date Provider Diagnosis [address] [address] 11/05/2024 Rony Hoy Acute bronchitis, unspecified organism J20.9 and Right lower lobe pneumonia J18.[address] [address] 09/12/2024 Rony Hoy CAD (coronary artery disease) I25.10 and Paroxysmal atrial fibrillation I48.[address] [address] 09/19/2024 Rony Hoy Hypertension I10 ; Hypothyroidism E03.9 ; CAD (coronary artery disease) I25.10 ; Gastro-esophageal reflux disease K21.9 ; Pure hypercholesterolemia, unspecified E78.00 and Hypothyroid E03.[address] [address] 09/27/2024 Rony Hoy Bruising T14.8XXA [address] [address] 10/14/2024 Rony Hoy Foul smelling urine R82.90 ; Acute bronchitis, unspecified organism J20.9 and Cough R05.[address] [address] 12/18/2024 Rony Hoy Hypertension I10 ; C AD (coronary artery disease) I25.10 ; Diabetes mellitus E11.9 ; Chronic obstructive pulmonary disease (COPD) J44.9 and Acquired hypothyroidism E03.[address] [address] 03/07/2025 Rony Hoy UTI (urinary tract infection) N39.0 and Bilateral impacted cerumen H61.[address] [address] 03/19/2025 Rony Hoy Gastroenteritis K52. 9 and Bilateral impacted cerumen H61.[address] [address] 07/04/2025 Rony Hoy Back pain M54.9 [facility] [address] [facility] [address] 09/06/2024 Rony Hoy [facility] [place] [place] [address] 09/23/2024[facility] [place] [address]/[facility] [place] [address]/[facility] [place] [address]/10/2024[facility] [facility] [place] [address]/01/2025Doug Hoy Hypertension D46ExiachlMiddle [facility] [place] [place] [place] [address]/11/2024Doug HoyHypertension E47WxuzocsMiddle [facility] [place] [address]/05/2025[address] [facility] [place] [facility] [place] [address]/06/2025[facility] [place] [place] [address]/ [facility] [place] [address]/Doug HoyAnemia, iron deficiency D50.9 and GI bleed K92.2 [facility] [place] [address] 04/03/2025[facility] [facility] [place] [address]/[facility] [place] [address]/[facility] [facility] [place] [address]/10/2024[facility] [facility] [place] [address]/11/2024Doug Hoy Gastroenteritis K52.9[facility] [place] [address]/[facility] [facility] [place] [address]/Doug HoyHip pain, unspecified laterality M25.559 and Knee pain, unspecified laterality M25.569 Assessments Encounter Date Diagnosis (ICD Code) Assessment Notes Treatment Notes Treatment Clinical Notes Section Notes 09/12/2024 CAD (coronary artery disease) (I CD-10 - I25.10) 09/12/2024Paroxysmal atrial fibrillation (ICD-10 - I48.0)12/18/2024Hypertension (ICD-10 - I10)12/18/2024AD (coronary artery disease) (ICD-10 - I25.10) 09/27/2024ruising (ICD-10 - T14.8XXA)10/14/2024Foul smelling urine (ICD-10 - R82.90)10/14/2024ute bronchitis, unspecified organism (ICD-10 - J20.9)Rest and drink more liquids, especially water. You may use a humidifier or vaporizer to help keep the drainage moist. Qwfh-znh-ufbmnpj Nasal Saline may help the stuffy and runny nose. Use Ibuprofen and or Tylenol as needed for fever, chills, body aches or pain. Children 5 years old should not be given feia-hxr-wkzzgxo cough and cold medications such as guaifenesin and dextromethorphan. If you're over age 5, you may try oovk-pua-gpnipcn cold medications such as guaifenesin and dextromethorphan, [...] go to the emergency room or call [phone] (ICD-10 - I10)diastolic low - no change in meds09/19/2024Hypothyroidism (ICD-10 - E03.9)on meds - checking on labs11/05/2024ute bronchitis, unspecified organism (ICD-10 - J20.9)Rest and drink more liquids, especially water. You may use a humidifier or vaporizer to help keep the drainage moist. Qlpq-ugw-qisreme Nasal Saline may help the stuffy and runny nose. Use Ibuprofen and or Tylenol as needed for fever, chills, body aches or pain. Children 5 years old should not be given owaz-fsz-qgxxiqc cough and cold medications such as guaifenesin and dextromethorphan. If you're over age 5, you may try jbch-zyw-zmymcqy cold medications such as guaifenesin and dextromethorphan, [...] go to the emergency room or call [phone] lower lobe pneumonia (ICD-10 - J18.9)egophony on exam 03/19/2025Gastroenteritis (ICD-10 - K52.9)Get plenty of rest. Stay hydrated by sucking on ice chips or taking small sips of water. You can also try drinking clear soda, clear broths or noncaffeinated sports drinks. Stop eating solid foods for a few hours to let your stomach settle. East back into eating by eating bland, fpdo-az-xcsimc foods like crackers, toast, gelatin, bananas, rice and chicken. Try to avoid foods/substances including dairy products, caffeine, alcohol, nicotine and fatty or highly seasoned foods. Medications such as i buprofen or tylenol can make your stomach more upset, so use sparingly if at all. Also avoid ebij-soi-xroxtiz anti-diarrheal medications because it can make it harder for your body to eliminate the virus.03/19/2025ilateral impacted cerumen (ICD-10 - H61.23)03/07/2025UTI (urinary tract infection) (ICD-10 - N39.0)03/07/2025ilateral impacted cerumen (ICD-10 - H61.23)07/04/2025ack pain (ICD-10 - M54.9)01/13/2025Hypertension (ICD-10 - I10)02/11/2025Hypertension (ICD-10 - I10)03/27/2025nemia, iron deficiency (ICD-10 - D50.9)03/27/2025GI bleed (ICD-10 - K92.2)06/13/2025Gastroenteritis (ICD-10 - K52.9)07/05/2025Hip pain, unspecified laterality (ICD-10 - M25.559)07/05/2025Knee pain, unspecified laterality (ICD-10 - M25.569)09/19/2024AD (coronary artery disease) (ICD-10 - I25.10)no chest pain10/14/2024ough (ICD-10 - R05.9)12/18/2024Diabetes mellitus (ICD-10 - E11.9)12/18/2024hronic obstructive pulmonary disease (COPD) (ICD-10 - J44.9)09/19/2024Gastro-esophageal reflux disease (ICD-10 - K21.9)Stable on emeds09/19/2024Pure hypercholesterolemia, unspecified (ICD-10 - E78.00)on meds - vmlize135Acquired hypothyroidism (ICD-10 - E03.9)09/19/2024Hypothyroid (ICD-10 - E03.9)07/04/2025OtherRecommended to rest and use a heating pad [...] 4 VIEWS 07/04/2025 THYROID PANEL (T4/TSH/FREE T3) THYROID PANEL (T4/TSH/FREE T3) 3 MG MAMM SCREEN 3D DAVID CAD 06/06/2024 XR HIP RT 2 3V W PELVIS 07/04/2025 BASIC METABOLIC PANEL 05/01/2024 CMP (COMP MET [place]) w/eGFR CKD-EPI 2024 Insurance Providers Payer Name Payer Address Payer Phone Subscriber Number Group Number Insured Name Patient Relationship to Insured Coverage Start Date Coverage End Date [place]IC[place] [address] [place] [address] [id number] Elidia Hortaelf - patient is the [id number] 2007[employer] [id number] [place], [place] [id number], BertieSelf - patient is the [id number] 2007 Medications Administered Medication Instructions Date of Administration Dosage Notes Kenalog-40 ck17Oaqydjwbg Vrxgdcmtuqwr39/30/398753 mg Medical (General) History Medical History History [...] Chronic diastolic heart failure I50.32 Atherosclerosis of nulato artery of extr emity I70.209 Paroxysmal atrial [...] abscess Surgical History Surgery Date(Month/Year) stent in kidney stent in right leglumpectomyI and D Right Glut AbcessDefib ximqqdplg68/24 appendixstent in heartHospitalization History Reason Date(Month/Year) Gout/Arthritis/ Bronchitis 2022
--- OUTSIDE RECORDS SUMMARY | 2025-07-28 08:13 | XMS_ITS | Clinical Summary ---
Author Organization [facility] Address [address] [place] [address] Care Team Providers Care Waste/Materials Exchange Specialist Name Role Phone Unavailable Primary Care Provider Unavailabl e Source Comments The following information is NOT included in Care Everywhere downloads:Psychiatric notes, ECG results, Cardiac Rehab notes, Pulmonary Function notes, data from SmartForms (includes but not limited toPregnancy data,audiograms, eye exams, pre-surgical evaluation notes, well-child exam data).[facility] Social History Tobacco UseTypesPacks/DayYears UsedDateSmoking Tobacco: Never Assessed CommentsUnknownSex and Gender InformationValueDate RecordedSex Assigned at Not on fileLegal ZwrQmyckm52/18/2025 4:12 PM EDTGender IdentityNot on fileSexual OrientationNot on file Plan of Treatment Health MaintenanceDue DateLast DoneCommentsTdap Lrajqfd6110/06/1960Hepatitis A (HAV) Vaccine (optional start 19+ years)1961Tetanus (Td or Tdap) Booster 2Pneumococcal Vaccine(s) (50+ yrs) (1 of 1 - PCV)1992Shingles (RZV) Vaccine (1 of 2)1992Hepatitis B (HBV) Vaccine (optional start 60+ years)2002Bone Uecuctyiyfnh01/26/2008RSV vaccine (adult) (1 - 1-dose 75+ series)2017COVID-19 Vaccine (1 - 2024- season)2025Influenza Vaccine (#1)2025Pap SmearDiscontinued
--- OUTSIDE RECORDS SUMMARY | 2025-07-28 08:13 | XMS_ITS | Clinical Summary ---
Author Organization [facility] Address [address] [place] [address] Care Team Providers Care Broom Maker Name Role Phone Gil Blake MD Primary [...] BY MOUTH IN THE MORNING AND AT CCTNNBF7704/08/2024ctive febuxostat (Uloric) 40 MG tablet Take 40 [...] Problems No known active problems Encounters DateTypeDepartmentCare OmzpOafnylqhgsr71/23/2025 1:50 PM EDTOffice Visit [facility] [address] [facility] [facility] [address] [place] [phone] Peyman Roper DPM Neoplasm of uncertain behavior of skin (Primary Dx); Diabetes mellitus due to underlying condition with diabetic polyneuropathy, 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 senior care insulin use (HCC); Pain due to onychomycosis of toenails of both feet; Venous insufficiency; Acquired deformity of left toe07/03/2025amboo flowsheet [facility] [address] [facility] [address] [place] [phone] Peyman Roper DPM 07/03/2025Travelfrom Last 3 Months Family History Medical HistoryRelationNameCommentsArthritisMotherCancerMotherDiabetesMother Heart diseaseMotherHypertensionMotherRelationNameStatusCommentsFatherDeceased MotherDeceased Social History Tobacco UseTypesPacks/DayYears UsedDateSmoking Tobacco: FormerCigarettes Smokeless Tobacco: Never Tobacco Cessation:Counseling Given: Yes Alcohol UseStandard Drinks/WeekCommentsNever0 (1 standard drink = 0.6 oz pure alcohol)CommentsUnknownSex and Gender InformationValueDate RecordedSex Assigned at BirthNot on fileLegal TwbAquwwv66/15/2023 7:38 PM EDTGender Identity Not on fileSexual OrientationNot on file Last Filed Vital Signs Vital SignReadingTime TakenCommentsBlood Pressure--Pulse--Temperature-- Respiratory Mikp5396 1:58 PM EDTOxygen Saturation--Inhaled Oxygen Concentration--Swogji52.8 kg (145 lb)07/03/2025 1:58 PM ATZGoshvw105.4 cm (5') 07/03/2025 1:58 PM EDTBody Mass Index28.321 1:58 PM EDT Plan of Treatment DateTypeDepartmentCare Team (Latest Contact Info)Aptoacfkxyf84/22/2026 1:50 PM ESTOffice Visit [facility] [address] [address] [place] [phone] Peyman Roper DPM [address] [facility] [address] [place] [address] Health MaintenanceDue DateLast DoneCommentsPneumococcal Vaccine: 65+ Years (2 of 2 - PCV), 06/15/2010COVID-19 Vaccine ( - 2024- season) , 11/06/2020, 10/09/2020Influenza Vaccine (#1)2025 06/25/2024, 07/01/2021, 06/10/2020, Additional history exists Insurance Care Teams Team MemberRelationshipSpecialtyStart DateEnd Gil Blake MD [address] [place] [facility] [place] [address] PCP - GeneralFamily Medicine02/14/24
--- OUTSIDE RECORDS SUMMARY | 2025-07-28 08:16 | XMS_ITS | CCD ---
Author Organization [facility] Care Team Providers Care Business Systems Advisor Name Role Phone Mateus Perry MD Primary Care Provider Mateus Perry Primary Care Physician Mateus Perry MD Primary Care Provider [phone] Mateus Perry MD Primary Care Provider [phone] MD Mateus Perry Primary Care Provider [phone] MD Christiano Gonzales Attending Provider [phone] Christiano Gonzales Unavailable Millie Storm Unavailable SONALI [...] Unavailable HOY ., DR IGNACIO Consulting Unavailable [place], DR JUDSON Plunkett Consulting Unavailable MISC, DR [...] HOY ., DR IGNACIO Primary Care Unavailable [place], DR JUDSON Plunkett Consulting Unavailable NILL ., DR BARRIENTOS Consulting Unavailable LEONID, KRISTIN Consulting Unavailable SHARP, CARLOS Consulting Unavailable [...] Unavailable HOY ., DR IGNACIO Consulting Unavailable [place], DR JUDSON Plunkett Consulting Unavailable HOY ., DR IGNACIO Primary Care Unavailable CARROLL, MIK Admitting Unavailable CARROLL, MIK Attending Unavailable CARROLL, MIK Consulting Unavailable HILL [...] NILL, Iliana Ramirez Attending Unavailable LUTMAN V, CHRISTAUNDREAER Admitting Unavailabl e LUTMAN V, CHRISTAUNDREAER Attending Unavailabl e MATEUS PERRY Primary Care Unavailable HAYDEE, LATONIA Referring Unavailable MATEUS PERRY Primary Care Unavailable MATEUS PERRY Primary Care Unavailable HAYDEE, LATONIA Referring Unavailable MD Mateus Perry Primary Care Provider [phone] FERNY Mathews Attending Provider MD Mateus Perry Primary Care Provider [phone] FERNY Mathews Attending Provider [phone] Mateus Perry MD Primary Care Provider Mateus Perry MD Primary Care Provider VAIBHAV ASHTON Attending Unavailable WALLACE STONE Referring Unavailable HOModesta, MATEUS M Primary Care Unavailable HOModesta, MATEUS M Primary Care Unavailable Mateus Perry MD Primary Care Provider [phone] Christiano Mcdonnell MD Attending Provider Mateus Perry MD Primary Care Provider Christiano Mcdonnell MD Attending Provider Mateus Perry MD Primary Care Provider [phone] Christiano Mcdonnell MD Attending Provider Christiano Mcdonnell Attending Unavailable Mcdonnell, Christiano Admitting [...] Unavailable Hoy, Mateus M Primary Care Unavailable Mateus Perry MD Primary Care Provider PEYMAN HENSLEY Attending Unavailable PEYMAN HENSLEY Attending Unavailable PEYMAN HENSLEY Attending Unavailable PEYMAN HENSLEY Attending Unavailable Mateus Perry MD Primary Care Provider [phone] Christiano Mcdonnell MD Attending Provider Mor Cutler DO Attending Provider BRIAN KERN Referring Unavailable CONCHABRIAN Attending Unavailable MADDIE, LINSEY Referring Unavailable CONCHA, BRIAN Referring Unavailable CONCHA, BRIAN Referring Unavailable MADDIELINSEY Referring Unavailable CONCHABRIAN Altamirano Referring Unavailable CONCHABRIAN Altamirano Admitting Unavailable CONCHA, BRIAN Attending Unavailable CONCHABRIAN Altamirano Referring Unavailable CONCHA, BRIAN Referring Unavailable CONCHA, BRIAN Referring Unavailable CONCHA, BRIAN Attending Unavailable CONCHA, BRIAN Referring Unavailable CONCHA, BRIAN Attending Unavailable CONCHA, BRIAN Attending Unavailable MICHAEL, RENEE Referring Unavailable CONCHA, BRIAN Attending Unavailable CONCHA, BRIAN Referring Unavailable CONCHA, BRIAN Referring Unavailable MADDIE, LINSEY Referring Unavailable CONCHA, BRIAN Referring Unavailable CONCHA, BRIAN Referring Unavailable CONCHA, BRIAN Referring Unavailable CONCHA, BRIAN Attending Unavailable Giedchad CARDONA, Jefferson Shell Attending Unavailable Allergies Allergy ClassificationReported Allergen(s)Allergy TypeDate of OnsetReaction(s) Facility (20 sources)Acetaminophen / oxyCODONE; Translations: [OXYCODONE-ACETAMINOPHEN] Drug Gvewwpw10-00-9264Qdvgc (See Comments), Intolerance, [facility]psetMer[facility] ([facility] sources)Ciprofloxacin; Translations: [ciprofloxacin]Drug Vndphii70-38-8147 Hives, Urticaria (disorder), Other: [facility] ([facility] sources)oxyCODONE; Translations: [oxycodone]Drug Mrkpfwn32-06-8204Dkmh, Itching (finding)[facility] (20 sources)cefdinir; Translations: [cefdinir]Drug Vfwwszh42-16-5323Vtrqmpsq (disorder), Other: See Comments, Vomiting, Other (See Comments)[facility] [place] (18 sources)traMADol; Translations: [TRAMADOL]Drug Hbazbrg92-32-4925Wynorl Status Change, Other (See Comments)[facility] (1 source)CefuroximeDrug Xqzruzd39-23-0952[facility] Work Phone: (10 sources)Acetaminophen; Translations: [acetaminophen]Drug Dvsjafd16-67-3476 [facility] (2 sources)Acetaminophen / oxyCODONEDrug Smwtwno11-45-0690Hks [facility] (1 source)CefuroximeDrug Oysapwt97-22-6103[facility] (2 sources)CiprofloxacinDrug AllergyCleveland Clinic [facility] (1 source)cefdinirDrug Ictwjyq31-09-0921ZwcqakalxUniversity [facility]als [facility] Rep[facility] (1 source)CiprofloxacinDrug Gqdfvsm09-94-1037ZwepinljsUniversity Hospitals Geauga [facility] Repository (1 source)oxyCODONEDrug Zkfyqtm51-85-5371Dqzthxjob [facility] (1 source)traMADolDrug Uzzgyyz47-98-2717DzowumrgkUniversity Hospitals Geaug[facility] Repository Medications Current Medications MedicationDrug Class(es)DatesSig (Normalized)Sig (Original)acetaminophen 500 mg oral tablet (20 sources)Start: 04-30-2020 End: 95-49-9285rsqd 2 tablets by mouth every six hours as neededacetaminophen (TYLENOL EXTRA STRENGTH) 500 mg tablet Take 2 tablets by mouth every 6 hours as needed for Pain. 60 tablet 04/30/2020 Active End: 33-70-0419rank 2 tablets by mouth every four hours as needed for pain acetaminophen (TYLENOL) 325 MG tablet Take 650 mg by mouth every 4 hours as needed for Pain 0 06/28/2022 Discontinued (Stop Taking at Discharge) End: 20-42-6229spbq 1 tablet by mouth every four hours as neededAcetaminophen (TYLENOL ARTHRITIS PAIN PO) Take 1 tablet by mouth every 4 hours as needed 0 06/28/2022 Discontinued (Stop Taking at Discharge)Comment on above:Take 2 tablets by mouth every 6 hours as needed for Pain.acetaminophen 325 mg / HYDROcodone bitartrate 5 mg oral tablet (1 source)Opioid AgonistStart: 12-13-2021 End: 71-31-1689PTLPTgccxez-acetaminophen (NORCO) 5-325 MG per tablet Indications: Post-operative state Take 1 tablet by mouth every 4 hours as needed for Pain for up to 7 days. Intended supply: 7 days. Take lowest dose possible to manage pain 10 tablet 0 12/13/2021 12/20/2021 Activealbuterol 0.83 mg/ml inhalation solution (20 sources)beta2-Adrenergic AgonistStart: 38-84-3315nfjs 2.5 mg by inhalation four times dailyalbuterol 0.083% Inh Crys 3 mL 2.5 mg, 3 mL, NEB, QID, Refill(s) 0 Start Date: 09/02/22 Status: OrderedStart: 94-75-5412tcqp 1.25 mg by inhalation every four to six hours as neededAlbuterol Sulfate 2.5 mg /3 mL (0.083 %) Solution For Nebulization Active 1.25 MG INHALATION EVERY 4-6 HOURS as needed for Shortness Of Breath April 24, 2019 11:00pm Complies with drug therapyStart: 94-18-7194tjch 1 puff(s) by inhalation every six hours as needed Albuterol Sulfate (Ventolin Hfa) 90 mcg/actuation Hfa Aerosol Inhaler Active 2 PUFF INHALATION Q6H as needed for Shortness Of Breath April 24, 2019 11:00pm Complies with drug therapyalbuterol (2.5 MG/3ML) 0.083% nebulizer solution USE 1 VIAL IN NEBULIZER 4 TIMES DAILY NEEDED Activealbuterol (PROVENTIL) 2.5 mg /3 mL (0.083 %) nebulizer solution Use 2.5 mg via nebulizer as needed.Active Albuterol Sulfate (2.5 MG/3ML) 0.083% 3 ml Inhalation Three times a day Active End: 10-33-2319PGPJXVBQM SULFATE (VENTOLIN INHALATION) Inhale 2 Puffs as [...] oral tablet (20 sources)Dihydropyridine Calcium Channel BlockerStart: 89-17-1880gonk 1 tablet by mouth once dailyamLODIPine (NORVASC) 5 MG tablet Take 5 mg by mouth daily 0 04/05/2021 ActiveStart: 43-01-0195pijg 5 mg by mouth once dailyStart: 69-03-1061pbaq 5 mg by mouth once dailyAmlodipine Active 5 MG PO Daily April 25, 2019 12:00amComment on above:Take by mouth once daily.anastrozole 1 mg oral tablet (20 sources)Aromatase InhibitorStart: 11-09-2022 End: 74-85-3920roht 1 tablet by mouth once dailyAnastrozole 1 mg tablet Active 1 MG PO Daily November 28, 2022 11:00pm Complies with drug therapyAnastrozole ActiveComment on above:Take 1 tablet by mouth once daily.apixaban 5 mg oral tablet (20 sources)Factor Xa InhibitorStart: 41-67-8149bpgo 1 tablet by mouth twice dailyApixaban (Eliquis) 5 mg Tablet Active 5 MG PO Twice daily April 24, 2019 11:00pm Complies with drug therapytake 2 tablets by mouth twice dailyapixaban (ELIQUIS) 2.5 mg tab(s) Take 5 mg by mouth twice daily. ActiveComment on above: Take 5 mg by mouth twice daily. aspirin 81 mg chewable tablet (20 sources)Platelet Aggregation Inhibitor, Nonsteroidal Anti-inflammatory Drug Start: 71-82-9667hqofnfj 81 mg Chew Tab 81 mg = 1 tab(s), Chewed, Daily, Refills(s) 0 Start Date: 09/02/22 Status: OrderedStart: 66-92-5801Vqqepnu (Chang Low Dose Aspirin) 81 mg Tablet,Delayed Release (Dr/Ec) Active 81 MG PO Daily April 24, 2019 11:00pm Complies with drug therapyComment on above:Take 81 mg by mouth once daily.bacitracin 0.5 unt/mg / polymyxin b 10 unt/mg topical ointment (2 sources)Polymyxin-class AntibacterialStart: 06-28-2022 End: 03-31-9750yagditmcxm-polymyxin b (POLYSPORIN) 500-52013 UNIT/GM ointment Apply topically 2 times daily. 15 g 1 06/28/2022 06/28/2022 Discontinued (REORDER)cholecalciferol 0.125 mg oral tablet (13 sources)Vitamin DStart: 73-07-5054ljbf 1 tablet by mouth once daily Cholecalciferol (Vitamin D3) (Vitamin D3) 125 mcg (5,000 unit) Tablet Active 125 MCG PO Daily 2022 11:00pm Complies with drug therapytake 1 tablet by mouth once dailycholecalciferol (VITAMIN D-3) 5,000 unit tab Take 5,000 Units by mouth once daily. ActiveComment on above:Take 5,000 Units by mouth once daily.1 ml diphenhydrAMINE hydrochloride 50 mg/ml cartridge (1 source)Histamine-1 Receptor AntagonistStart: 12-13-2021 End: 10-17-7817srkmzlibyjPVVQB (BENADRYL) injection 12.5 mgdocosahexaenoic acid 120 mg / eicosapentaenoic acid 180 mg oral capsule (9 sources)take 1 capsule by mouth twice dailyOmega 3 1000 MG CAPS Take 1,000 mg by mouth 2 times daily 0 Active End: 63-02-1191dkup 1 capsule by mouth once dailyOmega-3 Fatty Acids (FISH OIL OMEGA-3) 1000 MG CAPS Take 1,000 mg by mouth daily 0 05/12/2021 Discontinued docusate sodium 50 mg / sennosides, mcc 8.6 mg oral tablet (2 sources)Start: 06-28-2022 End: 91-24-0033htsk 8.6-50 mg by mouth once as neededsenna-docusate (PERICOLACE) 8.6-50 MG per tablet Take 1 tablet by mouth 2 times daily as needed for Constipation 60 tablet 1 06/28/2022 06/28/2022 Discontinued (REORDER)febuxostat 40 mg oral tablet (20 sources)Xanthine Oxidase InhibitorStart: 34-74-8819prkb 1 tablet by mouth once dailyFebuxostat 40 mg tablet Active 40 MG PO Daily December 10, 2023 11:00pm Complies with drug therapyComment on above:Take 1 tablet by mouth every afternoon.2 ml fentaNYL 0.05 mg/ml injection (6 sources)Opioid AgonistStart: 94-75-2338yqtvgFYM (SUBLIMAZE) injection 50 mcg Start: 75-53-5104idmgnMDO (SUBLIMAZE) injection 25 mcgStart: 58-23-7626ixhedIEC (SUBLIMAZE) injection 50 mcgStart: 89-92-4580oiedpPMA (SUBLIMAZE) injection 25 mcgferrous sulfate 325 mg oral tablet (19 sources)Start: 46-49-0273zdgj 1 tablet by mouth twice dailyFerrous Sulfate (Feosol) 325 mg (65 mg iron) tablet Active 325 MG PO Twice daily December 10, 2023 11:00pm Complies with drug therapyFish Oils (10 sources)Start: 92-26-6214imox 2 capsules by mouth once dailyFish Oil 1000 mg oral capsule 2,000 mg = 2 cap(s), Oral, Daily, Refills(s) 0 Start Date: 09/02/22 Status: Orderedtake 1 capsule by mouth once dailyFish Oil 1000 MG 1 capsule Orally Once a day for 30 day(s) Activefluconazole 100 mg oral tablet (1 source)Azole AntifungalStart: 43-11-3462dueq 1 tablet by mouth once daily fluconazole (DIFLUCAN) 100 MG tablet TAKE 1 TABLET BY MOUTH EVERY DAY 0 12/15/2021 Lbgkhb83 actuat fluticasone furoate 0.1 mg/actuat / vilanterol 0.025 mg/actuat dry powder inhaler (11 sources)Corticosteroid, beta2-Adrenergic AgonistStart: 64-89-8933AXBO ELLIPTA 100-25 mcg/dose inhaler Inhale 1 Inhalation as instructed once daily. 08/21/2017 ActiveComment on above:Inhale 1 Inhalation as instructed once daily. furosemide 40 mg oral tablet (20 sources)Loop DiureticStart: 43-00-4850qhzu 1 tablet by mouth every other day Furosemide 40 mg Tablet Active 40 MG PO Q2D November 28, 2022 11:00pm Complies with drug therapyStart: 38-96-6725kjim 1 tablet by mouth twice dailyLasix 20 [...] mouth every other day 0 Active furosemide (LASIX) 20 MG tablet Take by mouth every other day 0 ActiveComment on above:Take 20 mg by mouth twice daily.Take 40 mg by mouth twice daily. gabapentin 100 mg oral capsule (1 source)Anti-epileptic AgentStart: 33-87-5766Jrbrydyprm 100 mg capsule Active MG PO July 14, 2025 12:00am Complies with drug therapyhydrALAZINE hydrochloride 100 mg oral tablet (20 sources)Arteriolar VasodilatorStart: 33-44-3808vqth 1 tablet by mouth three times dailyHydralazine 100 mg Tablet Active 100 MG PO Three times daily April 24, 2019 11:00pm Complies with drug therapyComment on above:Take 100 mg by mouth three times daily. hydroCHLOROthiazide 12.5 mg oral tablet (20 sources)Thiazide DiureticStart: 78-29-9086cman 1 tablet by mouth twice daily hydrochlorothiazide 12.5 mg Tab 12.5 mg = 1 tab(s), Oral, BID, Refills(s) 0 Start Date: 09/02/22 Status: OrderedStart: 03-20-2021 End: 58-26-9616cmxguVSPRVMieuywzyy (HYDRODIURIL) 12.5 MG tablet Take by mouth every other day On days taking-takesmed twice per day 0 03/20/2021 05/12/2021 Discontinued (Therapy completed)Start: 04-25-2019 End: 05-85-9608yjpi 1 tablet by mouth once dailyHydrochlorothiazide 12.5 mg Tablet Discontinued 12.5 MG PO Daily April 24, 2019 11:00pm November 29, 2022 8:20amhydroCHLOROthiazide (HYDRODIURIL) 25 MG tablet Take 12.5 mg by mouth every other day 0 Active End: 29-65-0278ujpz 2 tablets by mouth every other dayhydroCHLOROthiazide (HYDRODIURIL) 12.5 MG tablet hydrochlorothiazide 12.5 mg tablet Take 2 tablets e very other day by oral route for 30 days. 0 05/12/2021 DiscontinuedComment on above:Take 12.5 mg by mouth once daily. 3 ml insulin glargine 100 unt/ml pen injector (8 sources)Insulin AnalogStart: 38-33-0059jfuhcg 10 [IU] by subcutaneous injection once daily in the eveningInsulin Glargine (Lantus Solostar U-100 Insulin) 100 unit/mL (3 mL) insulin pen Active 10 UNIT SUBCUT Every evening December 10, 2023 11:00pm Complies with drug therapyinsulin lispro 100 unt/ml injectable solution (2 sources)Insulin AnalogStart: 54-53-3235Azgwyid Lispro (Humalog U-100 Insulin) 100 unit/mL solution Active 1 sliding scale dose SUBCUT As Directed December 10, 2023 11:00pm Complies with drug therapyInsulin Lispro (Humalog U-100 Insulin) 100 unit/mL solution (6 sources)Start: 56-67-1496Oaipbdd Lispro (Humalog U-100 Insulin) 100 unit/mL solution Active 1 sliding scale dose SUBCUT As Directed December 10, 2023 11:00pm Start: 49-39-8537Seitqql Lispro (Humalog U-100 Insulin) 100 unit/mL solution Active 1 sliding scale dose SUBCUT As Directed December 11, 2023 12:00am24 hr isosorbide mononitrate 60 mg extended release oral tablet (20 sources)Nitrate VasodilatorStart: 48-78-4440ypyg 1 tablet by mouth once daily in the morningisosorbide mononitrate 60 mg ER Tab 60 mg = 1 tab(s), Oral, qAM, Refills(s) 0 Start Date: 09/02/22 Status: OrderedStart: 04-25-2019 Isosorbide Mononitrate 60 mg Tablet Extended Release 24 Hr Active 120 MG PO Daily April 24, 201911:00pm Complies with drug therapytake 1 tablet by mouth twice daily, then take 1 tablet by mouth every twenty-four hoursisosorbide mononitrate ER (IMDUR) 60 mg 24 hr tablet Take 60 mg by mouth twice daily. ActiveComment on above:Take 60 mg by mouth twice daily. levothyroxine sodium 0.112 mg oral tablet (20 sources)l-ThyroxineStart: 57-58-0871dthc 1 tablet by mouth once daily levothyroxine 112 mcg (0.112 mg) Tab 112 mcg = 1 tab(s), Oral, Daily, Refills(s) 0 Start Date: 09/02/22 Status: OrderedStart: 10-63-3534vaxf 1 tablet by mouth once dailyLevothyroxine 112 mcg Tablet Active 112 MCG PO Daily April 24, 2019 11:00pm Complies with drug therapyStart: 79-58-8785wmiploeutixpu (SYNTHROID) 112 mcg tablet Take 125 mcg by mouth once daily. 12/08/2016 Active End: 00-84-1432ygkz 1 tablet by mouth once dailylevothyroxine (SYNTHROID) 125 MCG tablet Take 125 mcg by mouth Daily 0 05/12/2021 DiscontinuedComment on above:Take 125 mcg by mouth once daily. lidocaine 0.05 mg/mg topical ointment (1 source)Antiarrhythmic, Amide Local AnestheticStart: 06-15-2021 End: 52-00-3926ngpopzibt (XYLOCAINE) 5 % ointment Apply topically as needed to the affected area. 50 g 1 06/15/2021 06/15/2021 Discontinued (Stop Taking at Discharge)liothyronine sodium 0.005 mg oral tablet (20 sources)l-TriiodothyronineStart: 17-89-4504pfuk 1 tablet by mouth once daily Liothyronine 5 mcg tablet Active 5 MCG PO Daily November 28, 2022 11:00pm Complies with drug therapyStart: 42-13-9663ngql 2 tablets by mouth once daily Cytomel 5 mcg Tab 10 [...] hydrochloride 500 mg oral tablet (20 sources)BiguanideStart: 34-97-3843lzpt 1 tablet by mouth twice daily Metformin 500 mg Tablet Active 500 MG PO Twice daily April 24, 2019 11:00pm Complies with drug therapyComment on above:Take 500 mg by mouth twice daily with meals.24 hr metoprolol succinate 200 mg extended release oral tablet (20 sources)beta-Adrenergic BlockerStart: 71-48-8024ctnn 1 tablet by mouth once dailyMetoprolol Succinate 200 mg Tablet Extended Release 24 Hr Active 200 MG PO Daily April 24, 2019 11:00pm Complies with drug therapy End: 59-78-6305leeb 0.5 tablet by mouth once dailymetoprolol tartrate, [...] 100 unt/mg topical powder (7 sources)Polyene AntifungalStart: 45-11-2118jeyutytc (MYCOSTATIN) 611134 UNIT/GM powder Apply 3 times daily. 60 g 10 06/28/2022 Activenystatin (MYCOSTATIN) 336274 UNIT/GM powder Apply topically 2 times daily as needed 0 KyafhoCuzrk-9-WXM-EPA-Fish Oil 1,000 mg (120 mg-180 mg) cap (11 sources)take 1 capsule by mouth twice tvzzmRmfxo-2-JOK-EPA-Fish Oil 1,000 mg (120 mg-180 mg) cap Take 2 g by mouth twice daily. Activetake 1 capsule by mouth twice bjzdkFyxkr-0-ZKU-EPA-Fish Oil 1,000 mg (120 mg-180 mg) cap Take 2 g by mouth twice daily. 0 ActiveComment on above:Take 2 g by mouth twice daily. Pvjwi-7c-Sbw-Epa-Fish Oil ([place]-3 Fish Oil) 300-1,000 mg Capsule (9 sources)Start: 01-89-2439Fezib-5d-Qwl-Vge-Fish Oil ([place]-3 Fish Oil) 300- 1,000 mg Capsule Active 2 CAP PO Twice daily April 24, 2019 11:00pm Complies with drug therapyStart: 27-44-7852Evfcb: 19-72-4443Gnzzg-4z-Mmj-Xfx-Fish Oil ([place]-3 Fish Oil) 300-1,000 mg Capsule Active 2 CAP PO Twice daily April 24, 2019 11:00pmStart: 38-34-4729Frgse-0n-Ozd-Okg-Fish Oil ([place]-3 Fish Oil) 300- 1,000 mg Capsule Active 2 CAP PO Twice daily April 25, 2019 12:00am ondansetron 4 mg disintegrating oral tablet (14 sources)Serotonin-3 Receptor AntagonistStart: 95-69-9339pmhw 1 tablet by mouth four times dailyondansetron 4 mg Dis Tab 4 mg = 1 tab(s), Oral, QID, Refills(s) 0 Start Date: 09/02/22 Status: OrderedStart: 06-28-2022 End: 93-77-3471pznvrmvopez (ZOFRAN) injection 4 mgStart: 12-13-2021 End: 34-47-2717wyhrzmehbpd (ZOFRAN) injection 4 mg End: 41-37-0183zctj 1 tablet by mouth every eight hours as neededondansetron (ZOFRAN) 4 mg tablet Take 4 mg by mouth every 8 hours as needed for nausea/vomiting. 0 06/20/2023 Discontinued (Discontinued by Patient)Comment on above:Take 4 mg by mouth every 8 hours as needed for nausea/vomiting. pantoprazole 40 mg delayed release oral tablet (14 sources)Proton Pump InhibitorStart: 48-75-5621oxob 1 tablet by mouth once dailyPantoprazole [address] Tab 40 mg = 1 tab(s), Oral, Daily, Refills(s) 0 Start Date: 09/02/22 Status: OrderedStart: 09-02-2022 End: 00-37-2909vfzn 1 tablet by mouth once dailyPantoprazole [address] Tab 40 mg = 1 tab(s), Oral, Daily, Refills(s) 0 Start Date: 09/02/22 Status: Ordered End: 99-75-5162enxn 1 tablet by mouth once dailypantoprazole DR (PROTONIX) 40 mg tablet Take 40 mg by mouth once daily. 0 06/20/2023 Discontinued (Discontinued by Patient)Comment on above:Take 40 mg by mouth once daily.potassium chloride 10 meq extended release oral tablet (13 sources)Start: 16-47-8454Sfzlwqhhd Chloride 10 mEq tablet extended release Active MEQ PO July 14, 2025 12:00am Complieswith drug therapyStart: 01-35-6212tojv 1 tablet by mouth three times dailypotassium [...] mg/ml rectal foam (2 sources)Start: 06-28-2022 End: 15-78-5293aftuuxgmw HCl (PROCTOFOAM) 1 % foam Apply to hemorrhoids and anal area for postop pain as needed 15g 0 06/28/2022 06/28/2022 Discontinued (REORDER)predniSONE 5 mg oral tablet (5 sources)Start: 03-72-3694amjlseMSKB (DELTASONE) 5 mg tablet TAKE 6 TABLETS ON DAYS 1-3 DIRECTED AND DECREASE BY 1 TAB EVERY 3 DAYS 06/08/2023 ActiveStart: 23-21-9328afeuepHWKU (DELTASONE) 20 MG tabletComment on above:TAKE 6 TABLETS ON DAYS 1-3 DIRECTED AND DECREASE BY 1 TAB EVERY 3 DAYSsilver sulfADIAZINE 10 mg/ml topical cream (2 sources)Sulfonamide AntibacterialStart: 06-28-2022 End: 19-96-9318hfjbhs sulfADIAZINE (SILVADENE) 1 % cream Apply topically daily. 25 g 1 06/28/2022 06/28/2022 Discontinued (REORDER)simvastatin 20 mg oral tablet (20 sources)HMG-CoA Reductase InhibitorStart: 09-02-2022 End: 77-22-5172hqoe 1 tablet by mouth once daily at bedtimesimvastatin 20 mg Tab 20 mg = 1 tab(s), Oral, Once a day (at bedtime), Refills(s) 0 Start Date: 08/12 11/30 Status: OrderedStart: 13-11-8818ujge 1 tablet by mouth once daily in the eveningSimvastatin 20 mg Tablet Active 20 MG PO Every evening April 24, 2019 11:00pm Complies with drugtherapysimvastatin (ZOCOR) 20 mg tablet Take 40 mg by mouth daily at bedtime. Cut in half Activetake 0.5 tablet by mouth once daily simvastatin (ZOCOR) 40 MG tablet Take 40 mg by mouth daily 1/2 tabs 0 Active Comment on above:Take 40 mg by mouth daily at bedtime. Cut in half 5 ml sodium chloride 9 mg/ml injection (9 sources)Start: .9 % sodium chloride infusionStart: 06-28-2022 sodium chloride flush 0.9 % injection 5-40 mLStart: 27-72-0029dsklpf chloride flush 0.9 % injection 5-40 mLStart: .9 % sodium chloride infusion Start: 34-42-2171kmwhbg chloride flush 0.9 % injection 5-40 mLspironolactone 50 mg oral tablet (15 sources)Aldosterone AntagonistStart: 52-21-5704qdpg 1 tablet by mouth once dailySpironolactone (Aldactone) 50 mg tablet Active 50 MG PO Daily December 10, 2023 11:00pm Complies with drug therapyStart: 27-10-8727iken 0.5 tablet by mouth in the morningspironolactone (ALDACTONE) 25 MG tablet TAKE 1/2 TABLET BY MOUTH IN THE MORNING 0 09/22/2022 Activesucralfate 1000 mg oral tablet (20 sources)Aluminum ComplexStart: 74-19-0923zoxl 1 tablet by mouth at bedtime Sucralfate 1 gram tablet Active 1 GM PO Before meals and at bedtime November 28, 2022 11:00pm Complies with drug therapyStart: 14-37-2757Wwrvmsvw 1 gram Tab 1 gm = 1 tab(s), Oral, QIDACHS, Refills(s) 0 Start Date: 09/02/22 Status: Ordered Sucralfate ActiveComment on above:Take 1 g by mouth four times daily. Sulfamethoxazole / Trimethoprim (2 sources)Dihydrofolate Reductase Inhibitor Antibacterial, Sulfonamide AntimicrobialBactrim ActivetraMADol hydrochloride 50 mg oral tablet (1 source)Opioid AgonistStart: 35-78-3975euip 1 tablet by mouth once daily Tramadol 50 mg tablet Active 50 MG PO Daily July 14, 2025 12:00am Complies with drug therapytriamcinolone acetonide 1 mg/ml topical cream (6 sources)Corticosteroidtriamcinolone (KENALOG) 0.1 % cream Apply topically 2 times daily as needed 0 ActiveVitamin D3 (2 sources)Vitamin D3 ActiveVitamin D3 2000 intl units oral Tab (4 sources)Start: 07-63-3008gslj 1 tablet by mouth once dailyVitamin D3 2000 intl units oral Tab 50 mcg, Oral, Daily, tab(s), Refills(s) 0 Start Date: 09/02/22 Status: Ordered Completed/Discontinued Medications MedicationDrug Class(es)DatesSig (Normalized)Sig (Original)albuterol 0.833 mg/ml / ipratropium bromide 0.167 mg/ml inhalation solution (1 source)Anticholinergic, beta2-Adrenergic AgonistStart: 06-15-2021 End: 97-94-8332slmiwakvufc-albuterol (DUONEB) nebulizer solution 1 ampule amoxicillin 875 mg / clavulanate 125 mg oral tablet (8 sources)Penicillin-class AntibacterialStart: 02-13-2024 End: 43-55-7354kiri 1 tablet by mouth once dailyAmoxicillin-Pot Clavulanate 875- 125 mg tablet Discontinued TAB PO Daily February 12, 2024 11:00pm July 14, 2025 11:07amcalcium chloride 0.0014 meq/ml / potassium chloride 0.004 meq/ml / sodium chloride 0.103 meq/ml / sodium lactate 0.028 meq/ml injectable solution (3 sources)Start: 06-28-2022 End: 83-82-9375pigyivyl ringers infusionStart: 95-76-9952zksdchey ringers infusionStart: 65-83-6231gxeejhdy ringers infusioncetirizine hydrochloride 10 mg oral capsule (17 sources)Histamine-1 Receptor AntagonistStart: 04-25-2019 End: 72-71-7237dqsu 1 tablet by mouth twice dailyCetirizine (Zyrtec) 10 mg Capsule Discontinued 1 TAB PO Twice daily April 24, 2019 11:00pm 2022 8:23amStart: 01-28-2019 End: 68-95-5714rcbq 1 tablet by mouth twice dailycetirizine (ZYRTEC) 10 mg tablet Take 10 mg by mouth twice daily. 11 01/28/2019 06/20/2023 Discontinued (Discontinued by Patient)Comment on above:Take 10 mg by mouth twice daily. citalopram 20 mg oral tablet (20 sources)Serotonin Reuptake InhibitorStart: 01-01-2019 End: 75-93-7804kqan 1 tablet by mouth once dailyCitalopram 20 mg Tablet Discontinued 20 MG PO Daily April 24, 2019 11:00pm November 29, 2022 8:23am Start: 52-26-4275ddooppsiin (CELEXA) 20 mg tablet 11 01/01/2019 Activedocusate sodium 100 mg oral capsule (8 sources)Start: 04-30-2020 End: 63-52-4532vomx 2 capsules by mouth every twenty-four hours as needed docusate sodium (COLACE) 100 mg capsule Take 2 capsules by mouth at bedtime as needed (opioid-induced constipation). 60 capsule 0 04/30/2020 06/20/2023 Discontinued (Discontinued by Patient)Comment on above:Take 2 capsules by mouth at bedtime as needed (opioid-induced constipation).empagliflozin 10 mg oral tablet (19 sources)Sodium-Glucose Cotransporter 2 InhibitorStart: 12-11-2023 End: 75-59-1174htki 1 tablet by mouth once dailyEmpagliflozin (Jardiance) 10 mg tablet Discontinued 10 MG PO Daily December 10, 2023 11:00pm July 14, 2025 11:08am60 actuat formoterol fumarate 0.005 mg/actuat / mometasone furoate 0.1 mg/actuat metered dose inhaler (8 sources)Corticosteroid, beta2-Adrenergic AgonistStart: 2018 End: 76-26-9505SXXYHB 100-5 mcg/actuation inhalerglimepiride 4 mg oral tablet (20 sources)SulfonylureaStart: 04-25-2019 End: 32-99-5464dtng 1 tablet by mouth twice dailyGlimepiride 4 mg Tablet Discontinued 4 MG PO Twice daily April 24, 2019 11:00pm July 14, 2025 11:08amtake 1 tablet by mouth every twenty-four hoursGlimepiride 4 MG 1 tablet with breakfast or the first main meal of the day Orally Once a day ActiveComment on above:Take 4 mg by mouth twice daily with meals. levoFLOXacin 750 mg oral tablet (10 sources)Quinolone AntimicrobialStart: 09-21-2022 End: 62-20-8296tigiRWKEpwgv (LEVAQUIN) 750 mg tabletStart: 12-34-7673jqal 1 tablet by mouth once dailylevoFLOXacin (LEVAQUIN) 500 MG tablet TAKE 1 TABLET BY MOUTH EVERY DAY 0 12/09/2021 Activetake 1 tablet by mouth once daily LEVOFLOXACIN PO Take 1 tablet by mouth daily 0 Activemeloxicam 15 mg oral tablet (17 sources)Nonsteroidal Anti-inflammatory DrugStart: 11-02-2022 End: 60-44-2380mnzi 1 tablet by mouth once dailyMeloxicam 15 mg tablet Discontinued 15 MG PO Daily November 28, 2022 11:00pm December 11, 2023 8:24am Comment on above:Take 15 mg by mouth once daily.nitrofurantoin 5 mg/ml oral suspension (10 sources)Nitrofuran AntibacterialStart: 11-29-2022 End: 87-41-7510xotu 50 mg by mouth four times daily at mealtimeNitrofurantoin 25 mg/5 mL Suspension Discontinued 50 MG PO Four times daily November 28, 2022 11:00pm December 11, 2023 8:25am must administer with a meal/foodtake 50 mg by mouth four times dailynitrofurantoin (FURADANTIN) 25 MG/5ML suspension Take 50 mg by mouth 4 times daily 0 Active Problems Active Problems Problem ClassificationProblemDateDocumented DateEpisodic/ChronicAcquired foot deformities (2 sources)Hallux valgus (acquired), left foot; Translations: [Hallux valgus (acquired)]81-33-6240YcpcvvvEthjstqp foot deformities (4 sources)Acquired deformity of toe of left foot; Translations: [Acquired deformities of toe(s), unspecified,left foot]17-20-4736NqivjeyuRyxqu bronchitis (1 source)Acute bronchitis, unspecified; Translations: [ACUTE BRONCHITIS UNSPECIFIED]Onset: 81-98-4131StohwqjaStrkfiqs reactions (1 source)Eczema; Translations: [Other specified dermatitis]EpisodicAortic; peripheral; and visceral artery aneurysms (4 sources)Femoral false cyvefwep51-56-9336MfnzaakRyebxu (1 source)Unspecified asthma, uncomplicated; Translations: [UNSPECIFIED ASTHMA UNCOMPLICATED]Onset: 76-42-7620EqfqgorRhbkyk of breast (20 sources)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 female breast; Translations: [Infiltrating ductcarcinoma of breast]Onset: 23-52-1878Nkurzgw Cancer of other female genital organs (20 sources)Vaginal intraepithelial neoplasia; 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]ChronicCardiac dysrhythmias (8 sources)Paroxysmal atrial fibrillation; Translations: [Paroxysmal atrial fibrillation]Onset: 244168-76-7624NzhtfzyQciqfll kidney disease (13 sources)Chronic kidney disease stage 2; Translations: [Chronic kidney disease, stage 2 (mild)]Onset: 222290-25-7936DpxjnyqUhmebba obstructive pulmonary disease and bronchiectasis (5 sources)Chronic obstructive lung disease; Translations: [Chronic obstructive pulmonary disease, unspecified]Onset: 586353-79-8161FxsvsciIkqhbyp ulcer of skin (17 sources)Ulcer of lower extremity; Translations: [Non-pressure chronic ulcer of unspecified part of left lower leg with unspecified severity]12-11-2023 ChronicConditions associated with dizziness or vertigo (4 sources)Brain stem ydnobxp66-46-3457OlkkjudtHbgjdwngff disorders (4 sources)Presence of automatic (implantable) cardiac defibrillator; Translations: [Presence of cardiac pacemaker]Onset: 36-57-9118WlmrwxzAskndkwzxj heart failure; nonhypertensive (18 sources)Acute combined systolic and diastolic heart failure; Translations: [Chronic diastolic heart failure]Onset: 990619-73-8205ZddviieAufbccua atherosclerosis and other heart disease (16 sources)Coronary arteriosclerosis; Translations: [Coronary atherosclerosis] Onset: 102484-35-4522RowflcjMztniljm mellitus with complications (14 sources)Type 2 diabetes mellitus with diabetic chronic kidney disease; Translations: [Type 2 diabetes mellitus with diabetic peripheral angiopathy without gangrene]Onset: 62-50-2854UmhzmieSegruryp mellitus without complication (20 sources)Diabetes mellitus; Translations: [Type 2 diabetes mellitus]Onset: 634428-16-9183WuyqpasZxmzksq on above:Problem List clean-up per request of Phys. EHR CmteDisorders of lipid metabolism (20 sources)Hypertriglyceridemia; Translations: [Pure hypercholesterolemia] Onset: 141061-72-3596UlhxdvpNakkzqlkogjpmn and diverticulitis (4 sources)Diverticular jkzvygt62-94-2423MvrxjtdNzlopdrvab disorders (5 sources)Gastroesophageal reflux disease; Translations: [Gastro-esophageal reflux disease without esophagitis]Onset: 957400-59-1583RuyoecfYvuabtavt hypertension (20 sources)Hypertensive disorder; Translations: [Essential (primary) hypertension]Onset: 124091-06-6870AagqubiKvxv and other crystal arthropathies (1 source)Gout, unspecified; Translations: [Gout, unspecified]Onset: 10-29-2024 ChronicHypertension with complications and secondary hypertension (2 sources)Hypertensive heart and chronic kidney disease with heart failure and stage 1 through stage 4 chronic kidney disease, or unspecified chronic kidney disease; Translations: [Hypertensive heart disease with heart failure]Onset: 77-68-5754UjolcthLnvbeqr (8 sources)Pain in toe; Translations: [Tinea unguium]23-37-1148UouicapiIapgzeckh of unspecified nature or uncertain behavior (6 sources)Neoplasm of uncertain behavior of skin; Translations: [Neoplasm of uncertain behavior of skin]72-39-1151XsdxewaxRdewzvrty or stenosis of precerebral arteries (12 sources)Carotid artery stenosis; Translations: [Occlusion and stenosis of bilateral carotid arteries]ChronicOpen wounds of extremities (11 sources)Open wound of left thigh; Translations: [Unspecified open wound, left thigh, initial encounter]10-80-6944PvxqunxsAcmy wounds of extremities (11 sources)Injury of right leg; Translations: [Unspecified open wound, right lower leg, initial encounter]85-97-4499BoqoticgDkukivkpzqxbxf (2 sources)Osteoarthritis of right hip joint; Translations: [Unilateral primary osteoarthritis, right hip]97-44-2416NmhyuonFpvhlzkccpmm (5 sources)Age-related osteoporosis without current pathological fracture; Translations: [AGE-REL OSTEOPOR W/OCURR PATH FX]Onset: 49-78-2896XtjltucWqnvm aftercare (5 sources)Long-term current use of anticoagulant; Translations: [custodial (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]Onset: 77-28-4112OwjkgiptEscyx aftercare (1 source)custodial (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; Translations: [INSTRUCTIONAL TECHNOLOGY INSTRUCTOR CURRNT USE ANTICOAGULANTS]Onset: 60-11-2699FkamzptdUlctn aftercare (1 source)custodial (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 oral hypoglycemic drugs; Translations: [[facility] USE ORAL HYPOGLYCEMIC DX]Onset: 34-44-9885WimwuhatRcqgn aftercare (1 source)Other senior care (current) drug therapy; Translations: [OTH INSTRUCTIONAL TECHNOLOGY INSTRUCTOR CURRENT DRUG THERAPY]Onset: 11-35-5561XwlnxtbkRvhxs bone disease and musculoskeletal deformities (4 sources)Nzmbxsyloy60-18-0587TpqfbykcPojcf connective tissue disease (3 sources)Other specified soft tissue disordersEpisodicOther connective tissue disease (1 source)Pain in right lower legEpisodicOther diseases of veins and lymphatics (8 sources)Vascular insufficiency; Translations: [Venous insufficiency (chronic) (peripheral)]47-83-4239CxipkmcrXbsad female genital disorders (3 sources)Dysplasia of vagina; 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, unspecified] EpisodicOther nutritional; endocrine; and metabolic disorders (4 sources)Body mass index 30+ - hkanois84-13-3225UgcvvcgSxbkb skin disorders (1 source)Localized swelling, mass and lump, lower limb, bilateral; Translations: [LOC SWELL MASS LUMP LOW LIMB DAVID]Onset: 11-17-4601TslgdtibOzvkg skin disorders (1 source)Eruption; Translations: [Rash and other nonspecific skin eruption] EpisodicPeripheral and visceral atherosclerosis (20 sources)Atherosclerosis of arteries of the extremities; Translations: [Peripheral vascular disease]Onset: 462803-17-4333XsdvpuyBwvyysv on above: Problem List clean-up per request of Phys. EHR CmteResidual codes; unclassified (11 sources)Dependence on other enabling machines and devices; Translations: [Uses walker]25-98-4087RxbfdxpNkifgrdj codes; unclassified (4 sources)Akvnd72-83-5015DlmottiuAasdhudi codes; unclassified (6 sources)Localized edema; Translations: [Edema]EpisodicResidual codes; unclassified (4 sources)Edema, unspecified; Translations: [EDEMA UNSPECIFIED]Onset: 07-12-8004CbotmhzzSkcxnxdc codes; unclassified (1 source)Family history of malignant neoplasm of breast; Translations: [FAMILY HX MALIG NEOPLASM OF BREAST]Onset: 53-45-6515MbumzdtcEpdnnouq codes; unclassified (8 sources)Bilateral lower leg edema; Translations: [Localized edema]12-11-2023 EpisodicResidual codes; unclassified (8 sources)Altered mental status; Translations: [Altered mental status, unspecified]13-42-4850MqivpuwlMzsfzxnd codes; unclassified (3 sources)Altered mental status, unspecified; Translations: [Altered mental status]59-22-9086JrilcxgmBaiecmvg codes; unclassified (5 sources)Inflammatory nhqapjzd26-06-1665UxfivxzpEtgadahgbf arthritis and related disease (1 source)Rheumatoid arthritis, unspecified; Translations: [Rheumatoid arthritis, unspecified]Onset: 81-27-1794PukgwstSfypedpbo and history of mental health and substance abuse codes (1 source)Personal history of nicotine dependence; Translations: [PERSONAL HISTORY OF NICOTINE DEPEND]Onset: 83-89-0278QaifdpnnUihcmompdps; intervertebral disc disorders; other back problems (4 sources)Cervical disc cdvmyzbu48-20-2214TeobvucClixurmzmzs; intervertebral disc disorders; other back problems (4 sources)Chronic low back aqlx13-61-6655XgtxityyTjwuliugw-zejgkng disorders (11 sources)Moderate smoker (20 or less per day) ; Translations: [Nicotine dependence, cigarettes, uncomplicated]Onset: 604641-84-0487XapeclnOsulqxm disorders (16 sources)Hypothyroidism; Translations: [Hypothyroidism, unspecified]Onset: 600240-67-3142ZdhjvubYdaznqwlbozl (4 sources)CONTACT W/AND (SUSP) EXPOS COVID-19; Translations: [CONTACT W/AND (SUSP) EXPOS COVID-19]Onset: 55-99-2786Dvguurmsvodr (1 source)COUGH, UNSPECIFIED; Translations: [COUGH, UNSPECIFIED]Onset: 44-26-2313Sfslxgxbibip (2 sources)BX; Translations: [BX]Onset: 31-66-3962Mwddyyymqkwo (6 sources)Inflammatory disorder; Translations: [Inflammation]01-52-0279Rnzahtt tract infections (4 sources)Urinary tract infection, site not specified; Translations: [UTI SITE NOT SPECIFIED]Onset: 65-69-2129GoqgjevaHvedmcrn veins of lower extremity (11 sources)Varicose veins of lower limb co-occurrent with edema; Translations: [Varicose veins of bilateral lower extremities with other complications] 73-40-8706TdskszdoJokdo infection (4 sources)COVID-19; Translations: [COVID-19]Onset: 03-17-2022 Past or Other Problems Problem ClassificationProblemDateDocumented DateEpisodic/ChronicCancer of other female genital organs (8 sources)High grade squamous intraepithelial lesion on vaginal Papanicolaou smear; Translations: [High gradesquamous intraepithelial lesion on cytologic smear of vagina (HGSIL)]Onset: 704077-97-7610OhmarkntAqfuuxr dysrhythmias (2 sources)Palpitations; Translations: [Palpitations]Onset: 65-04-7908Srubscsa Coronary atherosclerosis and other heart disease (1 source)Presence of coronary angioplasty implant and graft; Translations: [PRESENCE COR ANGPLSTY IMPLANT AND GRAFT]Onset: 25-08-0781YamqhimsMbcqunajaz and other anemia (1 source)Anemia, unspecified; Translations: [ANEMIA UNSPECIFIED]Onset: 47-40-2580KtcbljisGjiuz and electrolyte disorders (4 sources)Hypokalemia; Translations: [HYPOKALEMIA]Onset: 22-98-5031Fuczskji Gastritis and duodenitis (4 sources)Gastritis, unspecified, without bleeding; Translations: [GASTRITIS UNS WITHOUT BLEEDING]Onset: 87-84-3439HpggcefxFbufbvwnfabowibo hemorrhage (9 sources)Rectal hemorrhage; Translations: [Hemorrhage of anus and rectum] Onset: 946481-21-2545HcvnerjgRzfok valve disorders (1 source)Cardiac murmur, unspecified; Translations: [CARDIAC MURMUR UNSPECIFIED]Onset: 82-51-4257JlohegzpBizkywtcgwyqe and screening for infectious disease (1 source)Encounter for immunization; Translations: [ENCOUNTER FOR IMMUNIZATION] Onset: 09-51-2713BsoalacfYmmjjarbnipe breast conditions (4 sources)Unspecified lump in the right breast, upper outer quadrant; Translations: [UNS LUMP IN RT BREAST UPOUTR QUAD]Onset: 75-14-2290PgjdzudmTmjxv aftercare (1 source)custom clothier (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 aspirin; Translations: [INSTRUCTIONAL TECHNOLOGY INSTRUCTOR CURRENT USE OF ASPIRIN]Onset: 28-48-1534VszcyueeFuelj female genital disorders (11 sources)Vaginal lesion; Translations: [Other specified noninflammatory disorders of vagina]Onset: 733494-74-4339YmfnoyalDaamq female genital disorders (11 sources)Vaginal intraepithelial neoplasia grade 2; Translations: [Moderate vaginal dysplasia]Onset: 298660-63-8323KqsbktfgZttdl female genital disorders (1 source)Other specified noninflammatory disorders of vagina; Translations: [Other specified noninflammatorydisorders of vagina]Onset: 26-04-0048Ezjtrdwi Other female genital disorders (2 sources)Dysplasia of vagina, unspecified; 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, unspecified]Onset: 14-61-0892AaiopjmrUqppo gastrointestinal disorders (4 sources)Diarrhea, unspecified; Translations: [DIARRHEA UNSPECIFIED]Onset: 03-07-7335NsxlqjbqFbcmm lower respiratory disease (4 sources)Dyspnea, unspecified; Translations: [DYSPNEA UNSPECIFIED]Onset: 67-99-4813PgjnakozKenvu lower respiratory disease (4 sources)Other forms of dyspnea; Translations: [OTHER FORMS OF DYSPNEA]Onset: 72-29-8422CdxqquanApeyi screening for suspected conditions (not mental disorders or infectious disease) (8 sources)Other abnormal and inconclusive findings on diagnostic imaging of breast; Translations: [Encounter for screening mammogram for malignant neoplasm of breast]Onset: 82-70-5685OdfpoazuJoxbb upper respiratory disease (1 source)Nasal congestion; Translations: [NASAL CONGESTION]Onset: 08-13-2022 EpisodicResidual codes; unclassified (7 sources)Postoperative state; Translations: [Other specified postprocedural states]Onset: 12-13-2021 Resolved: 77-16-1803ChfebxdhEnmstppg codes; unclassified (1 source)Acquired absence of both cervix and uterus; Translations: [ACQUIRED ABSENCE BOTH CERVIX AND UTERUS]Onset: 14-94-5936PxvjougwOuzzhqfo codes; unclassified (1 source)Family history of malignant neoplasm of other organs or systems; Translations: [FAM HX MALIG NEOPLASM OTH ORGN/SYS]Onset: 17-80-5560AhnwnrutYcxc and subcutaneous tissue infections (2 sources)Local infection of the skin and subcutaneous tissue, unspecified; Translations: [Local infection ofthe skin and subcutaneous tissue, unspecified] Onset: 52-78-6407PtwgowwrLvhnlssqjhib (6 sources)Complications due to vascular device, implant, and graft; Translations: [Complications due to vascular device, implant, and graft] Unclassified (6 sources)E coli infection; Translations: [E coli infection]Unclassified (1 source)CONTACT W/AND (SUSP) EXPOS COVID-19; Translations: [CONTACT W/AND (SUSP) EXPOS COVID-19]Onset: 11-16-2022 Results Test NameValueInterpretationReference RangeFacilityOrders Onlyon 07-10-2025 Orders [id number] Harman Mcleod 1940 F Date Provider Department Center 07/10/2025 MARISOL MORIN [facility] Family History Problem Relation Age of Onset Stroke Mother Coronary artery disease Father Heart attack Father Family Status - Relation Status Age at Mother Father Sister DeceasedNormalUniKettering Health PrebleOrders Onlyon 06-12-2025 Orders [id number] Harman Mcleod 1940 F Date Provider Department Center 06/12/2025 BRIAN FLANNERY [facility] Family History Problem Relation Age of Onset Stroke Mother Coronary artery disease Father Heart attack Father Family Status - Relation Status Age at Mother Father Sister DeceasedNormalUniKettering Health PrebleAlanine aminotransferase [Enzymatic activity/volume] in Serum or PlasmaOrdered By: Christiano Mcdonnell on 55-96-5720OCZ [Catalytic activity/Vol]13 U/L7-52[facility] CenterComment on above:Performed By: #### ESR, CBC, CMP #### [facility] [address] [place] [address] USAAlbumin [Mass/volume] in Serum or Plasma by Bromocresol green (BCG) dye binding methoOrdered By: Christiano Mcdonnell on 29-94-4396Egevbqh BCG dye [Mass/Vol]3.5 g/dL3.5-5.7FMercy Health St. Vincent Medical CenterAlkaline phosphatase [Enzymatic activity/volume] in Serum or PlasmaOrdered By: Christiano Mcdonnell on 71-92-3487DAX [Catalytic activity/Vol]122 U/ZRrqn33-391SqujyhjlfUniversity Hospitals Geauga Medical CenterComment on above:Performed By: #### ESR, CBC, CMP #### [facility] [address] [place] [id number] USAAspartate aminotransferase [Enzymatic activity/volume] in Serum or PlasmaOrdered By: Christiano Mcdonnell on 98-84-9780GJZ [Catalytic activity/Vol]16 U/M69-69Vevrixyoz Regional Medical CenterComment on above: Performed By: #### ESR, CBC, CMP #### [place] [address] USABasophils [#/volume] in Blood by Automated countOrdered By: Christiano Martinrow on 72-02-8629Yrxgmqbqa (Bld) [#/Vol]0.1 10*3/uL0.0-0.2 [facility] CenterComment on above:Performed By: #### ESR, CBC, CMP #### [place] [address] USABasophils/100 leukocytes in Blood by Automated count Ordered By: Christiano Martinrow on 42-49-2837Wxgahjttr/100 WBC (Bld)0.9 %.[facility] CenterComment on above:Performed By: #### ESR, CBC, CMP #### [place] [address] USABilirubin.total [Mass/volume] in Serum or PlasmaOrdered By: Christianoanali Mcdonnell on 08-49-9378Ygwpwyiel [Mass/Vol]0.3 mg/dL0.3-1.0[facility] CenterComment on above:Performed By: #### ESR, CBC, CMP #### [place] [address] USACalcium [Mass/volume] in Serum or PlasmaOrdered By: Christiano Mcdonnell on 42-13-1832Iufqkzh [Mass/Vol]9.4 mg/dL8.6-10.3FMercy Health St. Vincent Medical CenterComment on above:Performed By: #### ESR, CBC, CMP #### [place] [address] USACarbon dioxide, total [Moles/volume] in Serum or Plasma Ordered By: Christianoanali Mcdonnell on 01-84-2958OL5 [Moles/Vol]33.6 mmol/LHigh21.0-31.0 [facility] CenterComment on above:Performed By: #### ESR, CBC, CMP #### [place] [address] USAChloride [Moles/volume] in Serum or PlasmaOrdered By: Christiano Mcdonnell on 34-00-9238Iobfqnzf [Moles/Vol]98 mmol/U73-953FqorsqpdsUniversity Hospitals Geauga Medical CenterComment on above:Performed By: #### ESR, CBC, CMP #### [facility] [address] [place] [address] USAComplete Blood Count Auto Diffon 45-17-4479Crgq Corpuscular HGB Conc33.2 g/pCNdymaz83.0-35.0The [facility] Partners Physician GroupComment on above:Performed By: #### ESR, CBC, CMP #### [facility] [address] [place] [address] USANRBC%0.1 /100{WBC}Normal0-0.5[facility] Physician [facility] Comment on above:Performed By: #### ESR, CBC, CMP #### [place] [address] USAWhite Blood Count7.9 [CFU]/mLNormal3.8-11.6The [facility] Physician [facility] HospitalComment on above:Performed By: #### ESR, CBC, CMP #### [facility] [address] [place] [address] USAComprehensive Metabolic Panelon 18-87-2784Vdtwufs [Mass/Vol]3.5 g/dLNormal3.5-5.7The [facility] Physician [facility] HospitalComment on above: Performed By: #### ESR, CBC, CMP #### [facility] [address] [place] [address] USAGFR/1.73 sq M.predicted MDRD (S/P/Bld) [Vol rate/Area] 38.217 mL/min/{1.73_m2}NormalThe [facility] Physician [facility] HospitalComment on above: Performed By: #### ESR, CBC, CMP #### [place] [address] USACreatinine [Mass/volume] in Serum or PlasmaOrdered By: Christiano Mcdonnell on 04-36-3789Btywzeyqsg [Mass/Vol]1.38 mg/dLHigh0.60-1.20 [facility] CenterComment on above:Performed By: #### ESR, CBC, CMP #### [place] [address] USAEosinophils [#/volume] in Blood by Automated countOrdered By: Christiano Mcdonnell on 35-06-3813Akgkyanppus (Bld) [#/Vol]0.6 10*3/uLHigh0.0-0.45 [facility] CenterComment on above:Performed By: #### ESR, CBC, CMP #### [facility] [address] [place] [address] USAEosinophils/100 leukocytes in Blood by Automated count Ordered By: Christiano Mcdonnell on 94-48-8199Fvqmdlsetis/100 WBC (Bld)7.9 %.[facility] CenterComment on above:Performed By: #### ESR, CBC, CMP #### [place] [address] USAErythrocyte Sedimentation Rateon 57-92-9933HBD (Bld) [Velocity]61 mm/hHigh0-29The [facility] Partners Physician GroupComment on above:Result Comment: PERFORMED BY: [place] [address] PATHOLOGIST GENERAL UTILITY MACHINE OPERATOR LIO MIRELES M.D.Performed By: #### ESR, CBC, CMP #### [place] [address] USAErythrocyte distribution width [Ratio] by Automated count Ordered By: Christiano Mcdonnell on 29-00-7631Bvitdwidhwy distribution width (RBC) [Ratio]15.4 %High11.9-15.3FMercy Health St. Vincent Medical CenterComment on above: Performed By: #### ESR, CBC, CMP #### [place] [address] USAErythrocyte sedimentation rate by Photometric method Ordered By: Christiano Mcdonnell on 61-25-1444ZSI Photometric method (Bld) [Velocity] 61 mm/hrHigh0-29[facility] Medical CenterErythrocytes [#/volume] in Blood by Automated countOrdered By: Christiano Mcdonnell on 50-11-6346UEO (Bld) [#/Vol]3.73 10*6/uL3.60-5.00[facility] CenterComment on above: Performed By: #### ESR, CBC, CMP #### [facility] [address] [place] [address] USAGlomerular filtration rate [Volume Rate/Area] in Serum, Plasma or Blood by CreatinineOrdered By: Christiano Martinrow on 51-05-8375Lwoebifwup filtration rate [Volume Rate/Area] in Serum, Plasma or Blood by Ifckfmqwnx90.217 mL/MinUniversity Hospitals Geauga Medical CenterGlucose [Mass/volume] in Serum or Plasma Ordered By: Christiano Martinrow on 75-47-8017Skiwjjb [Mass/Vol]257 mg/vSSlsk74-586 [facility] Medical CenterComment on above:ADA recommended reference rangeRandom Glucose Reference [...] rangePerformed By: #### ESR, CBC, CMP #### [place] [id number] USAHematocrit [Volume Fraction] of Blood by Automated count Ordered By: Christiano Kecia on 40-93-1821Hatvsskmxt (Bld) [Volume fraction]35.7 % 34.0-46.4FMercy Health St. Vincent Medical CenterComment on above:Performed By: #### ESR, CBC, CMP #### [facility] [address] [place] [address] USAHemoglobin [Mass/volume] in BloodOrdered By: Christianoanali Mcdonnell on 66-57-9660Mxotvxpxop (Bld) [Mass/Vol]11.9 g/dL11.8-15.4FMercy Health St. Vincent Medical CenterComment on above:Performed By: #### ESR, CBC, CMP #### [facility] [address] [place] [id number] USALeukocytes [#/volume] corrected for nucleated erythrocytes in Blood by Automated counOrdered By: Christiano Martinrow on 36-74-2281QGZ corrected for nucl RBC Auto (Bld) [#/Vol]7.9 10*3/uL3.8-11.6FMercy Health St. Vincent Medical CenterLeukocytes [#/volume] in Blood by Automated countOrdered By: Christiano Kecia on 19-13-3183PMO (Bld) [#/Vol]7.9 10*3/uL3.8-11.6FMercy Health St. Vincent Medical CenterComment on above:Performed By: #### ESR, CBC, CMP #### [facility] [address] [place] [id number] USALymphocytes [#/volume] in Blood by Automated countOrdered By: Christiano Mcdonnell on 53-19-3978Ipaagtigdev (Bld) [#/Vol]2.3 10*3/uL1.00-4.8 [facility]aug[facility] Medical CenterComment on above:Performed By: #### ESR, CBC, CMP #### [facility] [address] [place] [id number] USALymphocytes/100 leukocytes in Blood by Automated count Ordered By: Christiano Mcdonnell on 68-67-9733Olajhznezhf/100 WBC (Bld)29.2 %. [facility] Geauga Medical CenterComment on above:Performed By: #### ESR, CBC, CMP #### [address] [address] [facility] [Entitic mass] by Automated countOrdered By: Christiano Mcdonnell on 71-01-1037RFU (RBC) [Entitic mass]31.8 pg24.7-34.3FMercy Health St. Vincent Medical CenterComment on above:Performed By: #### ESR, CBC, CMP #### [facility] [address] [place], [place] [id number] [facility] Auto (RBC) [Mass/Vol]Ordered By: Christiano Mcdonnell on 78-86-7410BASA (RBC) [Mass/Vol]33.2 g/dL32.0-35.0[facility] Geauga Medical CenterMCV [Entitic volume] by Automated countOrdered By: Christiano Mcdonnell on 04-39-6528AAR (RBC) [Entitic vol]95.9 hY62-179EuxzxqgfxUniversity Hospitals Geauga Medical Center Comment on above:Performed By: #### ESR, CBC, CMP #### [place] [address] USAMonocytes [#/volume] in Blood by Automated countOrdered By: Christiano Mcdonnell on 83-27-7768Kkvfoopeq (Bld) [#/Vol]0.6 10*3/uL0.0-0.8 [facility] CenterComment on above:Performed By: #### ESR, CBC, CMP #### [place] [address] USAMonocytes/100 leukocytes in Blood by Automated count Ordered By: Christiano Mcdonnell on 50-86-0472Lnhbutjlv/100 WBC (Bld)7.5 %.[facility] Geauga Medical CenterComment on above:Performed By: #### ESR, CBC, CMP #### [place] [address] USANeutrophils [#/volume] in Blood by Automated countOrdered By: Christiano Mcdonnell on 34-33-7954Lqphskhnego (Bld) [#/Vol]4.3 10*3/uL1.8-7.7 [facility] Medical CenterComment on above:Performed By: #### ESR, CBC, CMP #### [place] [address] USANeutrophils/100 leukocytes in Blood by Automated count Ordered By: Christiano Mcdonnell on 31-58-6246Tafsshjuewo/100 WBC (Bld)54.5 %. [facility]aug[facility] Medical CenterComment on above:Performed By: #### ESR, CBC, CMP #### [place] [address] USANo Panel InformationOrdered By: Christiano Mcdonnell on 35-97-8153Ltjanxpb Creatinine Clearance (ChemN/[facility]inte HospitalNucleated erythrocytes [Presence] in Blood by Automated countOrdered By: Christiano Mcdonnell on 95-71-6414Mnqwqbkxo RBC Auto Ql (Bld)0.1 /100{WBC}0-0.5 [facility] Geauga Medical CenterPlatelet mean volume [Entitic volume] in Blood by Automated countOrdered By: Christiano Martinrow on 57-45-3089Lnlgqubm mean volume (Bld) [Entitic vol]8.3 fL6.3-10.7FMercy Health St. Vincent Medical CenterComment on above:Performed By: #### ESR, CBC, CMP #### [place] [address] USAPlatelets [#/volume] in Blood by Automated countOrdered By: Christiano eKcia on 32-98-6951Wnfomsszq (Bld) [#/Vol]252 10*3/tE461-708 [facility] CenterComment on above:Performed By: #### ESR, CBC, CMP #### [place] [address] USAPotassium [Moles/volume] in Serum or PlasmaOrdered By: Christiano Mcdonnell on 94-54-0145Sjchztpzc [Moles/Vol]4.3 mmol/L3.5-5.1FMercy Health St. Vincent Medical CenterComment on above:Hemolysis is present at a level that could interfere with the result.Contact lab if redraw is requiredResult Comment: Hemolysis is present at a level that could interfere with the result. Contact lab if redraw is requiredPerformed By: #### ESR, CBC, CMP #### [place] [id number] USAProtein [Mass/volume] in Serum or PlasmaOrdered By: Christiano Mcdonnell on 91-48-7324Snxzxhg [Mass/Vol]6.5 g/dL6.4-8.9[facility] Medical CenterComment on above:Performed By: #### ESR, CBC, CMP #### [place] [address] USASerum globulin measurement by calculation (mass/volume) Ordered By: Christiano Mcdonnell on 74-84-6774Qycsvklj (S) [Mass/Vol]3.0 g/dLUniversity Hospitals Geauga Medical CenterComment on above:Performed By: #### ESR, CBC, CMP #### [place] [id number] USASerum or plasma albumin/globulin mass ratioOrdered By: Christiano Mcdonnell on 90-66-4354Ovcoxlp/Globulin [Mass ratio]1.2 {ratio}[facility] Medical CenterComment on above:Performed By: #### ESR, CBC, CMP #### [place] [address] USASerum or plasma anion gap determinationOrdered By: Christiano Mcdonnell on 46-61-8641Cfkwv gap [Moles/Vol]11.7 mmol/L6.0-15.0[facility] Medical CenterComment on above:Performed By: #### ESR, CBC, CMP #### [place] [address] USASodium [Moles/volume] in Serum or PlasmaOrdered By: Christiano Martinrow on 52-82-0544Bspyha [Moles/Vol]139 mmol/J192-468WrkpmvgnrUniversity Hospitals Geauga Medical CenterComment on above:Performed By: #### ESR, CBC, CMP #### [place] [address] USAUrate [Mass/volume] in Serum or PlasmaOrdered By: Christiano Martinrow on 97-86-1263Iycrs [Mass/Vol]3.1 mg/dL2.3-6.6FMercy Health St. Vincent Medical CenterComment on above:Result Comment: PERFORMED BY: [place] [address] PATHOLOGIST GENERAL UTILITY MACHINE OPERATOR LIO MIRELES M.D.Performed By: #### ESR, CBC, CMP #### [place] [address] USAUrea nitrogen [Mass/volume] in Serum or PlasmaOrdered By: Christiano Martinrow on 70-74-9296Qdcu nitrogen [Mass/Vol]23 mg/dL7-25[facility] CenterComment on above:Performed By: #### ESR, CBC, CMP #### [place] [address] USAComplete Blood Count Auto Diffon 29-16-7520Vsouhkagv (Bld) [#/Vol]0.0 10*3/uLNormal0.0-0.2The [facility] Partners Physician GroupComment on above: Performed By: #### ESR, CBC, CMP #### [place] [address] USABasophils/100 WBC (Bld)0.4 %Normal.The [facility] Physician GroupComment on above:Performed By: #### ESR, CBC, CMP #### [place] [address] USAEosinophils (Bld) [#/Vol]0.1 10*3/uLNormal0.0-0.45The [facility] Partners Physician GroupComment on above:Performed By: #### ESR, CBC, CMP #### [place] [address] USAEosinophils/100 WBC (Bld)1.3 %Normal.The [facility] Physician GroupComment on above:Performed By: #### ESR, CBC, CMP #### [place] [address] USAErythrocyte distribution width (RBC) [Ratio]14.0 %Normal 11.9-15.3The [facility] Physician GroupComment on above:Performed By: #### ESR, CBC, CMP #### [place] [address] USAHematocrit (Bld) [Volume fraction]33.9 %Low34.0-46.4The [facility] Physician GroupComment on above:Performed By: #### ESR, CBC, CMP #### [place] [address] USAHemoglobin (Bld) [Mass/Vol]11.2 g/dLLow11.8-15.4The [facility] Physician GroupComment on above:Performed By: #### ESR, CBC, CMP #### [place] [address] USALymphocytes (Bld) [#/Vol]2.2 10*3/uLNormal1.00-4.8The [facility] Physician GroupComment on above:Performed By: #### ESR, CBC, CMP #### [place] [address] USALymphocytes/100 WBC (Bld)21.1 %Normal.The [facility] Physician GroupComment on above:Performed By: #### ESR, CBC, CMP #### [address] (RBC) [Entitic mass]30.9 wwDzayet54.7-34.3The [facility] Physician GroupComment on above:Performed By: #### ESR, CBC, CMP #### [place] [address] USAV (RBC) [Entitic vol]93.3 gXMonyhp58-119Pxs [facility] Physician GroupComment on above:Performed By: #### ESR, CBC, CMP #### [place] [address] USAMean Corpuscular HGB Conc33.1 g/yGZczstg20.0-35.0The [facility] Physician GroupComment on above:Performed By: #### ESR, CBC, CMP #### [place] [address] USAMonocytes (Bld) [#/Vol]1.3 10*3/uLHigh0.0-0.8The [facility] Physician GroupComment on above:Performed By: #### ESR, CBC, CMP #### [place] [address] USAMonocytes/100 WBC (Bld)12.5 %Normal.The [facility] Physician GroupComment on above:Performed By: #### ESR, CBC, CMP #### [place] [address] USANeutrophils (Bld) [#/Vol]6.7 10*3/uLNormal1.8-7.7The [facility] Physician GroupComment on above:Performed By: #### ESR, CBC, CMP #### [place] [address] USANeutrophils/100 WBC (Bld)64.7 %Normal.The [facility] Physician GroupComment on above:Performed By: #### ESR, CBC, CMP #### [facility] [address] [place] [address] USANRBC%0.1 /100{WBC}Normal0-0.5The [facility] Comment on above:Performed By: #### ESR, CBC, CMP #### [place] [address] USAPlatelet mean volume (Bld) [Entitic vol]8.7 fLNormal 6.3-10.7The [facility] Physician GroupComment on above:Performed By: #### ESR, CBC, CMP #### [place] [address] USAPlatelets (Bld) [#/Vol]280 10*3/tLXhocqe829-249Qtc [facility] Physician GroupComment on above:Performed By: #### ESR, CBC, CMP #### [place] [address] USARBC (Bld) [#/Vol]3.63 10*6/uLNormal3.60-5.00The [facility] Physician GroupComment on above:Performed By: #### ESR, CBC, CMP #### [place] [address] USAWBC (Bld) [#/Vol]10.4 10*3/uLNormal3.8-11.6The [facility] Physician GroupComment on above:Performed By: #### ESR, CBC, CMP #### [place] [address] USAWhite Blood Count10.4 [CFU]/mLNormal3.8-11.6The [facility] Physician GroupComment on above:Performed By: #### ESR, CBC, CMP #### [place] [address] USAComprehensive Metabolic Panelon 41-88-9220Itvsqfv [Mass/Vol]4.0 g/dLNormal3.5-5.7The [facility] Physician GroupComment on above: Performed By: #### ESR, CBC, CMP #### [place] [address] USAAlbumin/Globulin [Mass ratio]1.5 {ratio}NormalThe [facility] Physician GroupComment on above:Performed By: #### ESR, CBC, CMP #### [place] [address] USAALP [Catalytic activity/Vol]97 U/CNjngso40-826Jfc [facility] Physician GroupComment on above:Result Comment: PERFORMED BY: [place] [address] PATHOLOGIST GENERAL UTILITY MACHINE OPERATOR ILO MIRELES M.D.Performed By: #### ESR, CBC, CMP #### [place] [address] USAALT [Catalytic activity/Vol]8 U/LNormal7-52The [facility] Physician GroupComment on above:Performed By: #### ESR, CBC, CMP #### [place] [address] USAAnion gap [Moles/Vol]20.9 mmol/LHigh6.0-15.0The [facility] Physician GroupComment on above:Performed By: #### ESR, CBC, CMP #### [place] [address] USAAST [Catalytic activity/Vol]13 U/ZHccqwf07-52Auz [facility] Physician GroupComment on above:Performed By: #### ESR, CBC, CMP #### [place] [address] USABilirubin [Mass/Vol]0.5 mg/dLNormal0.3-1.0The [facility] Physician GroupComment on above:Performed By: #### ESR, CBC, CMP #### [place] [address] USACalcium [Mass/Vol]9.5 mg/dLNormal8.6-10.3The [facility] Physician GroupComment on above:Performed By: #### ESR, CBC, CMP #### [address] [place] [address] USAChloride [Moles/Vol]98 mmol/XZdrbzg74-022Cwk [facility] Physician GroupComment on above:Performed By: #### ESR, CBC, CMP #### [facility] [address] [place] [address] USACO2 [Moles/Vol]26.3 mmol/AQwezzx79.0-31.0The [facility] Physician GroupComment on above:Performed By: #### ESR, CBC, CMP #### [facility] [address] [place] [address] USACreatinine [Mass/Vol]1.56 mg/dLHigh0.60-1.20The [facility] Physician GroupComment on above:Performed By: #### ESR, CBC, CMP #### [facility] [address] [place] [address] USAGFR/1.73 sq M.predicted MDRD (S/P/Bld) [Vol rate/Area] 32.988 mL/min/{1.73_m2}NormalThe [facility] Physician GroupComment on above: Performed By: #### ESR, CBC, CMP #### [facility] [address] [place] [address] USAGlobulin (S) [Mass/Vol]2.7 g/dLNormalThe [facility] Physician GroupComment on above:Performed By: #### ESR, CBC, CMP #### [facility] [address] [place] [address] USAGlucose [Mass/Vol]96 mg/rFBorhch42-162Ylc [facility] Physician GroupComment on above:Result Comment: Random Glucose Reference Range is dependent on time and content of last meal. Glucose of more than 200 mg/dL in a nonstressed, ambulatory subject supports the diagnosis of Diabetes Mellitus. ADA recommended reference rangePerformed By: #### ESR, CBC, CMP #### [facility] [address] [place] [address] USAPotassium [Moles/Vol]3.2 mmol/LLow3.5-5.1The [facility] Physician GroupComment on above:Performed By: #### ESR, CBC, CMP #### [facility] [address] [place] [address] USAProtein [Mass/Vol]6.7 g/dLNormal6.4-8.9The [facility] Physician GroupComment on above:Performed By: #### ESR, CBC, CMP #### [facility] [address] [place] [address] USASodium [Moles/Vol]142 mmol/GSqqbvh899-622Cnb [facility] Physician GroupComment on above:Performed By: #### ESR, CBC, CMP #### [facility] [address] [place] [address] USAUrea nitrogen [Mass/Vol]35 mg/dLHigh7-e [facility] Physician GroupComment on above:Performed By: #### ESR, CBC, CMP #### [facility] [address] [place] [address] USAErythrocyte Sedimentation Rateon 71-13-1904RGQ (Bld) [Velocity]63 mm/hHigh0-29The [facility] Physician GroupComment on above:Result Comment: PERFORMED BY: [place] [address] PATHOLOGIST GENERAL UTILITY MACHINE OPERATOR LIO MIRELES M.D.Performed By: #### ESR, CBC, CMP #### [place] [address] USAOffice Visiton 46-18-6465Uyivyl-up [id number] Harman Mcleod 1940 F Date Provider Department Center 01/21/2025 BRIAN FLANNERY [facility] Family History Problem Relation Age of Onset Stroke Mother Coronary artery disease Father Heart attack Father Family Status - Relation Status Age at Mother Father Sister Level of Service:005[address] CT OFFICE/OUTPATIENT ESTABLISHED LOW MDM 20 [facility] HospitalAl[facility]otransferase [Enzymatic activity/volume] in Serum or PlasmaOrdered By: Christiano Mcdonnell on 59-12-8545FTC [Catalytic activity/Vol]Alanine aminotransferase [Enzymatic activity/volume] in Serum or PlasmaUniversity Hospitals Geauga Medical CenterAlbumin [Mass/volume] in Serum or Plasma by Bromocresol green (BCG) dye binding methoOrdered By: Christiano Mcdonnell on 45-30-4050Xuxsdqh BCG dye [Mass/Vol]Albumin [Mass/volume] in Serum or Plasma by Bromocresol green (BCG) dye binding metho3.5-5.7FMercy Health St. Vincent Medical CenterAlkaline phosphatase [Enzymatic activity/volume] in Serum or PlasmaOrdered By: Christiano Mcdonnell on 94-52-1839FFX [Catalytic activity/Vol] Alkaline phosphatase [Enzymatic activity/volume] in Serum or Wctnzn52-261 [facility] Medical CenterAspartate aminotransferase [Enzymatic activity/volume] in Serum or PlasmaOrdered By: Christiano cMdonnell on 96-64-1211XGW [Catalytic activity/Vol]Aspartate aminotransferase [Enzymatic activity/volume] in Serum or Leynqs58-24HsezjzokbUniversity Hospitals Geauga Medical CenterBasophils Auto (Bld) [#/Vol]Ordered By: Christiano Mcdonnell on 25-12-7822Nenypeytp (Bld) [#/Vol]Automated basophil count0.0-0.2FMercy Health St. Vincent Medical CenterBasophils/100 WBC Auto (Bld)Ordered By: Christiano Mcdonnell on 86-37-1267Lehdmxhiu/100 WBC (Bld)Automated basophil %.[facility] Geauga Medical CenterBilirubin.total [Mass/volume] in Serum or PlasmaOrdered By: Christiano Mcdonnell on 10-22-6310Xhrlesxfl [Mass/Vol] Bilirubin.total [Mass/volume] in Serum or Plasma0.3-1.0[facility] Geaug[facility] Medical CenterCalcium [Mass/volume] in Serum or PlasmaOrdered By: Christiano Mcdonnell 20-08-0501Qiqaqht [Mass/Vol]Calcium [Mass/volume] in Serum or PlasmaHigh 8.6-10.3FMercy Health St. Vincent Medical CenterCarbon dioxide, total [Moles/volume] in Serum or PlasmaOrdered By: Christiano Mcdonnell 49-80-9691JX9 [Moles/Vol]Carbon dioxide, total [Moles/volume] in Serum or QhpzbqVhbe37.0-31.0[facility] Medical CenterChloride [Moles/volume] in Serum or PlasmaOrdered By: Christiano Mcdonnell 43-59-4218Biixqhyt [Moles/Vol]Chloride [Moles/volume] in Serum or Nperxv41-247VjvpiugzqUniversity Hospitals Geauga Medical CenterComplete Blood Count Auto Diffon 44-75-9719Dnqalpsst (Bld) [#/Vol]0.0 10*3/uLNormal0.0-0.2The [facility] Physician GroupComment on above:Performed By: #### ESR, CBC, CMP #### [facility] [address] [place] [address] USABasophils/100 WBC (Bld)0.4 %Normal.The [facility] Partners Physician GroupComment on above:Performed By: #### ESR, CBC, CMP #### [place] [address] USAEosinophils (Bld) [#/Vol]0.1 10*3/uLNormal0.0-0.45The [facility] Physician GroupComment on above:Performed By: #### ESR, CBC, CMP #### [place] [address] USAEosinophils/100 WBC (Bld)1.1 %Normal.The [facility] Physician GroupComment on above:Performed By: #### ESR, CBC, CMP #### [place] [address] USAErythrocyte distribution width (RBC) [Ratio]14.9 %Normal 11.9-15.3The [facility] Physician GroupComment on above:Performed By: #### ESR, CBC, CMP #### [place] [address] USAHematocrit (Bld) [Volume fraction]37.5 %Vblbmn91.0-46.4The [facility] Physician GroupComment on above:Performed By: #### ESR, CBC, CMP #### [place] [address] USAHemoglobin (Bld) [Mass/Vol]12.3 g/nACdnhtf21.8-15.4The [facility] Physician GroupComment on above:Performed By: #### ESR, CBC, CMP #### [place] [address] USALymphocytes (Bld) [#/Vol]1.5 10*3/uLNormal1.00-4.8The [facility] Physician GroupComment on above:Performed By: #### ESR, CBC, CMP #### [place] [address] USALymphocytes/100 WBC (Bld)13.7 %Normal.The [facility] Physician GroupComment on above:Performed By: #### ESR, CBC, CMP #### [address] (RBC) [Entitic mass]30.7 peWftkdi72.7-34.3The [facility] Physician GroupComment on above:Performed By: #### ESR, CBC, CMP #### [place] [address] USAV (RBC) [Entitic vol]93.2 wMTtoqyj33-350Ksi [facility] Physician GroupComment on above:Performed By: #### ESR, CBC, CMP #### [place] [address] USAMean Corpuscular HGB Conc32.9 g/wVCheglh51.0-35.0The [facility] Physician GroupComment on above:Performed By: #### ESR, CBC, CMP #### [place] [address] USAMonocytes (Bld) [#/Vol]0.7 10*3/uLNormal0.0-0.8The [facility] Physician GroupComment on above:Performed By: #### ESR, CBC, CMP #### [place] [address] USAMonocytes/100 WBC (Bld)6.1 %Normal.The [facility] Physician GroupComment on above:Performed By: #### ESR, CBC, CMP #### [place] [address] USANeutrophils (Bld) [#/Vol]8.5 10*3/uLHigh1.8-7.7The [facility] Physician GroupComment on above:Performed By: #### ESR, CBC, CMP #### [facility] [address] [place] [address] USANeutrophils/100 WBC (Bld)78.7 %Normal.The [facility] Physician GroupComment on above:Performed By: #### ESR, CBC, CMP #### [place] [address] USANRBC%0.1 /100{WBC}Normal0-0.5The [facility] Comment on above:Performed By: #### ESR, CBC, CMP #### [place] [address] USAPlatelet mean volume (Bld) [Entitic vol]8.2 fLNormal 6.3-10.7The [facility] Physician GroupComment on above:Performed By: #### ESR, CBC, CMP #### [place] [address] USAPlatelets (Bld) [#/Vol]238 10*3/cEAmzqdm634-269Hsw [facility] Physician GroupComment on above:Performed By: #### ESR, CBC, CMP #### [place] [address] USARBC (Bld) [#/Vol]4.02 10*6/uLNormal3.60-5.00The [facility] Physician GroupComment on above:Performed By: #### ESR, CBC, CMP #### [place] [address] USAWBC (Bld) [#/Vol]10.9 10*3/uLNormal3.8-11.6The [facility] Physician GroupComment on above:Performed By: #### ESR, CBC, CMP #### [place] [address] USAComprehensive Metabolic Panelon 92-98-0363Hmhhfez [Mass/Vol]4.4 g/dLNormal3.5-5.7The [facility] Physician GroupComment on above: Performed By: #### ESR, CBC, CMP #### [place] [id number] USAAlbumin/Globulin [Mass ratio]1.7 {ratio}NormalThe [facility] Physician GroupComment on above:Performed By: #### ESR, CBC, CMP #### [place] [address] USAALP [Catalytic activity/Vol]92 U/LYpaclj75-353Qak [facility] Physician GroupComment on above:Result Comment: PERFORMED BY: [place] [address] PATHOLOGIST GENERAL UTILITY MACHINE OPERATOR BERNARDA GARCIA M.D.Performed By: #### ESR, CBC, CMP #### [place] [address] USAALT [Catalytic activity/Vol]17 U/LNormal7-52The [facility] Physician GroupComment on above:Performed By: #### ESR, CBC, CMP #### [place] [address] USAAnion gap [Moles/Vol]13.1 mmol/LNormal6.0-15.0The [facility] Physician GroupComment on above:Performed By: #### ESR, CBC, CMP #### [place] [address] USAAST [Catalytic activity/Vol]17 U/SVkibxw95-47Eyx [facility] Physician GroupComment on above:Performed By: #### ESR, CBC, CMP #### [place] [address] USABilirubin [Mass/Vol]0.5 mg/dLNormal0.3-1.0The [facility] Physician GroupComment on above:Performed By: #### ESR, CBC, CMP #### [place] [address] USACalcium [Mass/Vol]10.4 mg/dLHigh8.6-10.3The [facility] Physician GroupComment on above:Performed By: #### ESR, CBC, CMP #### [place] [address] USAChloride [Moles/Vol]98 mmol/SAkezed34-300Bmo [facility] Physician GroupComment on above:Performed By: #### ESR, CBC, CMP #### [facility] [address] [place] [address] USACO2 [Moles/Vol]34.6 mmol/LHigh21.0-31.0The [facility] Physician GroupComment on above:Performed By: #### ESR, CBC, CMP #### [facility] [address] [place] [address] USACreatinine [Mass/Vol]1.46 mg/dLHigh0.60-1.20The [facility] Physician GroupComment on above:Performed By: #### ESR, CBC, CMP #### [facility] [address] [place] [address] USAEstimated GFR35.718 mL/MinNormalThe [facility] Physician [facility] HospitalComment on above:Performed By: #### ESR, CBC, CMP #### [facility] [address] [place] [address] USAGlobulin (S) [Mass/Vol]2.6 g/dLNormalThe [facility] Physician GroupComment on above:Performed By: #### ESR, CBC, CMP #### [facility] [address] [place] [address] USAGlucose [Mass/Vol]142 mg/gAGgpr00-208Xbb [facility] Physician GroupComment on above:Result Comment: Random Glucose Reference Range is dependent on time and content of last meal. Glucose of more than 200 mg/dL in a nonstressed, ambulatory subject supports the diagnosis of Diabetes Mellitus. ADA recommended reference rangePerformed By: #### ESR, CBC, CMP #### [facility] [address] [place] [address] USAPotassium [Moles/Vol]3.7 mmol/LNormal3.5-5.1The [facility] Partners Physician GroupComment on above:Performed By: #### ESR, CBC, CMP #### [facility] [address] [place] [address] USAProtein [Mass/Vol]7.0 g/dLNormal6.4-8.9The [facility] Partners Physician GroupComment on above:Performed By: #### ESR, CBC, CMP #### [facility] [address] [place] [address] USASodium [Moles/Vol]142 mmol/KHqorkg773-339Jps [facility] Partners Physician GroupComment on above:Performed By: #### ESR, CBC, CMP #### [facility] [address] [place] [address] USAUrea nitrogen [Mass/Vol]43 mg/dLHigh7-25The [facility] Partners Physician GroupComment on above:Performed By: #### ESR, CBC, CMP #### [facility] [address] [place] [address] USACreatinine [Mass/volume] in Serum or PlasmaOrdered By: Christiano Mcdonnell on 51-40-6096Fpfvounmlb [Mass/Vol]Creatinine [Mass/volume] in Serum or PlasmaHigh0.60-1.20[facility] CenterEosinophils Auto (Bld) [#/Vol]Ordered By: Christiano Mcdonnell on 10-98-8784Oaewtjgklcx (Bld) [#/Vol] Automated eosinophil count0.0-0.45[facility] Eosinophils/100 WBC Auto (Bld)Ordered By: Christiano Mcdonnell on 01-07-2025 Eosinophils/100 WBC (Bld)Automated eosinophil %.[facility] CenterErythrocyte Sedimentation Rateon 44-44-1854YKU (Bld) [Velocity]37 mm/hHigh 0-29The [facility] Partners Physician GroupComment on above:Result Comment: PERFORMED BY: [place] [address] PATHOLOGIST GENERAL UTILITY MACHINE OPERATOR BERNARDA GARCIA M.D.Performed By: #### ESR, CBC, CMP #### [facility] [address] [place] [address] USAErythrocyte distribution width Auto (RBC) [Ratio]Ordered By: Christiano Mcdonnell on 96-95-5246Ngjyohwefzn distribution width (RBC) [Ratio] Erythrocyte distribution width [Ratio] by Automated count11.9-15.3FMercy Health St. Vincent Medical CenterErythrocyte sedimentation rate by Photometric method Ordered By: Christiano Mcdonnell on 96-11-9389VAO Photometric method (Bld) [Velocity] Erythrocyte sedimentation rate by Photometric methodHigh0-29[facility] CenterGlobulin Calc (S) [Mass/Vol]Ordered By: Christiano Mcdonnell on 72-10-2962Eyesdnkf (S) [Mass/Vol]Serum globulin measurement by calculation (mass/volume)[facility] CenterGlucose [Mass/volume] in Serum or PlasmaOrdered By: Christiano Mcdonnell on 35-90-7195Qrrwyez [Mass/Vol]Glucose [Mass/volume] in Serum or ExdqkcPnmb19-846JjwojcdfgUniversity Hospitals Geauga Medical Center Comment on above:ADA recommended reference rangeRandom Glucose Reference Range is dependent on time and content of last meal. Glucose of more than 200 mg/dL in a nonstressed, ambulatory subject supports the diagnosisof Diabetes Mellitus. Hematocrit Auto (Bld) [Volume fraction]Ordered By: Christiano Mcdonnell on 01-07-2025 Hematocrit (Bld) [Volume fraction]Hematocrit [Volume Fraction] of Blood by Automated count34.0-46.4FMercy Health St. Vincent Medical CenterHemoglobin [Mass/volume] in BloodOrdered By: Christiano Mcdonnell on 00-21-8797Aqsuqtmevt (Bld) [Mass/Vol]Hemoglobin [Mass/volume] in Blood11.8-15.4FMercy Health St. Vincent Medical CenterLeukocytes [#/volume] corrected for nucleated erythrocytes in Blood by Automated counOrdered By: Christiano Mcdonnell on 82-57-9755HPX corrected for nucl RBC Auto (Bld) [#/Vol]Leukocytes [#/volume] corrected for nucleated erythrocytes in Blood by Automated coun3.8-11.6FMercy Health St. Vincent Medical CenterLymphocytes Auto (Bld) [#/Vol]Ordered By: Christiano Mcdonnell on 97-71-4055Zgkmmqahjjs (Bld) [#/Vol]Lymphocytes [#/volume] in Blood by Automated count1.00-4.8[facility] CenterLymphocytes/100 WBC Auto (Bld)Ordered By: Christiano Mcdonnell on 30-38-2487Ytqudogbgad/100 WBC (Bld)Lymphocytes/100 leukocytes in Blood by Automated count.[facility] Medical CenterMCH Auto (RBC) [Entitic mass] Ordered By: Christiano Mcdonnell on 65-66-8598TJL (RBC) [Entitic mass]MCH [Entitic mass] by Automated count24.7-34.3FMercy Health St. Vincent Medical CenterMCHC Auto (RBC) [Mass/Vol]Ordered By: Christiano Mcdonnell on 85-20-4538EBSV (RBC) [Mass/Vol] MCHC [Mass/volume] by Automated count32.0-35.0[facility] MCV Auto (RBC) [Entitic vol]Ordered By: Christiano Mcdonnell on 54-16-9555SML (RBC) [Entitic vol]MCV [Entitic volume] by Automated enncj78-495RoawuopaaUniversity Hospitals Geauga Medical CenterMonocytes Auto (Bld) [#/Vol]Ordered By: Christiano Mcdonnell on 12-28-4209Ypwzeeykf (Bld) [#/Vol]Automated blood monocyte count0.0-0.8[facility] CenterMonocytes/100 WBC Auto (Bld)Ordered By: Christiano Mcdonnell on 08-34-6255Bshbtliuw/100 WBC (Bld)Automated monocyte %.[facility] CenterNeutrophils Auto (Bld) [#/Vol]Ordered By: Christiano Mcdonnell on 14-89-9491Vmkqwnpzdfn (Bld) [#/Vol]Neutrophils [#/volume] in Blood by Automated countHigh1.8-7.7FMercy Health St. Vincent Medical CenterNeutrophils/100 WBC Auto (Bld) Ordered By: Christiano Mcdonnell on 38-80-7358Czygzsnduyd/100 WBC (Bld)Automated neutrophil %.[facility] CenterNo Panel InformationOrdered By: Christiano Mcdonnell on 97-44-0670Nxctrjmof GFR (CKD-EPI)35.718 mL/MinUniversity Hospitals Geauga Medical CenterPharmacy Creatinine Clearance (ChemN/AFMercy Health St. Vincent Medical CenterNucleated erythrocytes [Presence] in Blood by Automated count Ordered By: Christiano Mcdonnell on 53-70-8745Dbquhxakv RBC Auto Ql (Bld)Nucleated erythrocytes [Presence] in Blood by Automated count0-0.5FMercy Health St. Vincent Medical CenterPlatelet mean volume Auto (Bld) [Entitic vol]Ordered By: Christiano Mcdonnell on 08-82-4047Qsawqane mean volume (Bld) [Entitic vol]Platelet mean volume [Entitic volume] in Blood by Automated count6.3-10.7FMercy Health St. Vincent Medical CenterPlatelets Auto (Bld) [#/Vol]Ordered By: Christiano Mcdonnell on 01-07-2025 Platelets (Bld) [#/Vol]Platelets [#/volume] in Blood by Automated ycsaf373-395 [facility] CenterPotassium [Moles/volume] in Serum or Plasma Ordered By: Christiano Mcdonnell on 87-43-4644Tgjkiuvxi [Moles/Vol]Potassium [Moles/volume] in Serum or Plasma3.5-5.1FMercy Health St. Vincent Medical CenterProtein [Mass/volume] in Serum or PlasmaOrdered By: Christiano Mcdonnell on 32-77-5146Wimzqau [Mass/Vol]Protein [Mass/volume] in Serum or Plasma6.4-8.9[facility] CenterRBC Auto (Bld) [#/Vol]Ordered By: Christiano Mcdonnell on 50-38-3024IJH (Bld) [#/Vol]Erythrocytes [#/volume] in Blood by Automated count3.60-5.00 [facility] Centererum or plasma albumin/globulin mass ratio Ordered By: Christiano Mcdonnell on 06-73-9461Ypsmdvi/Globulin [Mass ratio]Serum or plasma albumin/globulin mass ratioSouthview Medical Centererum or plasma anion gap determinationOrdered By: Christiano Mcdonnell on 13-64-7263Ipmkf gap [Moles/Vol]Serum or plasma anion gap determination6.0-15.0[facility] Medical Centerodium [Moles/volume] in Serum or PlasmaOrdered By: Christiano Mcdonnell on 65-10-4961Ykfhlg [Moles/Vol]Sodium [Moles/volume] in Serum or Oummvx480-791 [facility] CenterUrea nitrogen [Mass/volume] in Serum or Plasma Ordered By: Christiano Mcdonnell on 74-48-5028Dclu nitrogen [Mass/Vol]Urea nitrogen [Mass/volume] in Serum or PlasmaHigh7-25[facility] CenterWBC Auto (Bld) [#/Vol]Ordered By: Christiano Mcdonnell on 17-72-4673WOL (Bld) [#/Vol] Leukocytes [#/volume] in Blood by Automated count3.8-11.6FMercy Health St. Vincent Medical CenterX-ray reportOrdered By: Butch Quinones on 81-45-3967Mcyyi report [facility] [place] [address] [place] [address] XRay Report Signed Patient: Harman Mcleod MR#: [id number] : 1940 Acct:[id number] Age/Sex: 84 / F ADM Date: 5 Loc: ICXD Room: Type: REG CLI Attending Dr: Christiano Mcdonnell MD Copies to: Christiano Mcdonnell MD~ Ordering Provider: Christiano Mcdonnell MD Date of Service: 01/07/25 XR/XR knee BI 2V: KNEE PAIN ([id number]) XR/XR hip BI w PEL1V: HIP PAIN ([id number]) XR/XR lumbar spine 2-3V*: LOW BACK PAIN LUMBAR SPINE - 2 views, bilateral hip series 2 views each, bilateral knee vjxwra6cqtwg each CLINICAL HISTORY: Severe bilateral knee hip [...] KNEE. Impression dictated by: Butch Quinones Jr., D.O. 01/07/2025 4:46 PM Dictation Location: [place] [address] Transcribed By: [facility] 01/07/25 164 Dictated By: Butch Quinones Jr, DO 01/07/25 1644 Signed By: 01/07/25 164 [facility] CenterXR knee BI 2Von 27-89-7150TY knee BI 2V [facility] [place] [address] [place] [address] XRay Report Signed Patient: Harman Mcleod MR#: [id number] : 1940 Acct:[id number] Age/Sex: 84 / F ADM Date: 01/07/25 Loc: ICXD Room: Type: [facility] CLI Attending Dr: Christiano Mcdonnell MD Copies to: Christiano Mcdonnell MD Ordering Provider: Christiano Mcdonnell MD Date of Service: 01/07/25 XR/XR knee BI 2V: KNEE PAIN ([id number]) XR/XR hip BI w PEL1V: HIP PAIN ([id number]) XR/XR lumbar spine 2-3V*: LOW BACK PAIN [...] Jr., D.OMedardo 01/07/2025 4:46 PM Dictation Location: [place] [address] Transcribed By: [facility] 01/07/251645 Dictated By: Butch Quinones Jr, DO 01/07/25 164 Signed By: 01/07/25 1646[facility] Women Physician GroupAlanine aminotransferase [Enzymatic activity/volume] in Serum or PlasmaOrdered By: Christiano Mcdonnell on 72-61-0396BRJ [Catalytic activity/Vol]Alanine aminotransferase [Enzymatic activity/volume] in Serum or Plasma7-52[facility] CenterAlbumin [Mass/volume] in Serum or Plasma by Bromocresol green (BCG) dye binding metho Ordered By: Christiano Mcdonnell on 12-22-0731Fhdlovt BCG dye [Mass/Vol]Albumin [Mass/volume] in Serum or Plasma by Bromocresol green (BCG) dye binding metho 3.5-5.7FMercy Health St. Vincent Medical CenterAlkaline phosphatase [Enzymatic activity/volume] in Serum or PlasmaOrdered By: Christiano Mcdonnell on 28-89-2691TJI [Catalytic activity/Vol]Alkaline phosphatase [Enzymatic activity/volume] in Serum or Rdwjxy80-119HydyfhmsmUniversity Hospitals Geauga Medical CenterAspartate aminotransferase [Enzymatic activity/volume] in Serum or PlasmaOrdered By: Christiano Mcdonnell on 83-20-6991LZA [Catalytic activity/Vol]Aspartate aminotransferase [Enzymatic activity/volume] in Serum or Ctmhjv27-03EkcgipljvUniversity Hospitals Geauga Medical Center Basophils Auto (Bld) [#/Vol]Ordered By: Christiano Mcdonnell on 58-57-6040Grvmnlydv (Bld) [#/Vol]Automated basophil count0.0-0.2FMercy Health St. Vincent Medical Center Basophils/100 WBC Auto (Bld)Ordered By: Christiano Mcdonnell on 12-10-2024 Basophils/100 WBC (Bld)Automated basophil %.[facility] Bilirubin.total [Mass/volume] in Serum or PlasmaOrdered By: Christiano Mcdonnell on 19-65-5006Uvxskiukg [Mass/Vol]Bilirubin.total [Mass/volume] in Serum or Plasma 0.3-1.0[facility] Medical CenterCalcium [Mass/volume] in Serum or Plasma Ordered By: Christiano Mcdonnell on 79-09-1002Vqkcnad [Mass/Vol]Calcium [Mass/volume] in Serum or Plasma8.6-10.3FMercy Health St. Vincent Medical CenterCarbon dioxide, total [Moles/volume] in Serum or PlasmaOrdered By: Christiano Mcdonnell on 25-36-3511UT5 [Moles/Vol]Carbon dioxide, total [Moles/volume] in Serum or LkupkaOaux71.0-31.0 [facility] Medical CenterChloride [Moles/volume] in Serum or Plasma Ordered By: Christiano Mcdonnell on 15-07-0270Abqpfqnu [Moles/Vol]Chloride [Moles/volume] in Serum or Qsdtnh11-702Akgnwk[address] [place], [place] [address]Complete Blood Count Auto Diffon 77-96-4239Nwsgmdogb (Bld) [#/Vol]0.0 10*3/uLNormal 0.0-0.2The [facility] Partners Physician GroupComment on above:Performed By: #### ESR, CBC, CMP #### [facility] [address] [place] [address] USABasophils/100 WBC (Bld)0.4 %Normal.The [facility] Partners Physician GroupComment on above:Performed By: #### ESR, CBC, CMP #### [place] [address] USAEosinophils (Bld) [#/Vol]0.3 10*3/uLNormal0.0-0.45The [facility] Partners Physician GroupComment on above:Performed By: #### ESR, CBC, CMP #### [facility] [address] [place] [address] USAEosinophils/100 WBC (Bld)3.2 %Normal.The [facility] Partners Physician GroupComment on above:Performed By: #### ESR, CBC, CMP #### [place] [address] USAErythrocyte distribution width (RBC) [Ratio]14.9 %Normal 11.9-15.3The [facility] Partners Physician GroupComment on above:Performed By: #### ESR, CBC, CMP #### [facility] [address] [place] [address] USAHematocrit (Bld) [Volume fraction]31.9 %Low34.0-46.4The [facility] Partners Physician GroupComment on above:Performed By: #### ESR, CBC, CMP #### [place] [address] USAHemoglobin (Bld) [Mass/Vol]10.7 g/dLLow11.8-15.4The [facility] Partners Physician GroupComment on above:Performed By: #### ESR, CBC, CMP #### [place] [address] USALymphocytes (Bld) [#/Vol]2.7 10*3/uLNormal1.00-4.8The [facility] Partners Physician GroupComment on above:Performed By: #### ESR, CBC, CMP #### [place] [address] USALymphocytes/100 WBC (Bld)32.6 %Normal.The [facility] Partners Physician GroupComment on above:Performed By: #### ESR, CBC, CMP #### [place] [address] USAMCH (RBC) [Entitic mass]30.9 zhLkjzdu16.7-34.3The [facility] Partners Physician GroupComment on above:Performed By: #### ESR, CBC, CMP #### [place] [address] USAMCV (RBC) [Entitic vol]92.4 qIDjvawq13-046Vod [facility] Physician GroupComment on above:Performed By: #### ESR, CBC, CMP #### [place] [address] USAMean Corpuscular HGB Conc33.5 g/zWFiiivk79.0-35.0The [facility] Partners Physician GroupComment on above:Performed By: #### ESR, CBC, CMP #### [place] [address] USAMonocytes (Bld) [#/Vol]0.7 10*3/uLNormal0.0-0.8The [facility] Partners Physician GroupComment on above:Performed By: #### ESR, CBC, CMP #### [place] [address] USAMonocytes/100 WBC (Bld)8.9 %Normal.The [facility] Partners Physician GroupComment on above:Performed By: #### ESR, CBC, CMP #### [place] [address] USANeutrophils (Bld) [#/Vol]4.6 10*3/uLNormal1.8-7.7The [facility] Partners Physician GroupComment on above:Performed By: #### ESR, CBC, CMP #### [place] [address] USANeutrophils/100 WBC (Bld)54.9 %Normal.The [facility] Partners Physician GroupComment on above:Performed By: #### ESR, CBC, CMP #### [facility] [address] [place] [address] USANRBC%0.3 /100{WBC}Normal0-0.5The [facility] Comment on above:Performed By: #### ESR, CBC, CMP #### [place] [address] USAPlatelet mean volume (Bld) [Entitic vol]8.5 fLNormal 6.3-10.7The [facility] Partners Physician GroupComment on above:Performed By: #### ESR, CBC, CMP #### [place] [address] USAPlatelets (Bld) [#/Vol]244 10*3/mYTkjpns661-027Ouh [facility] Physician GroupComment on above:Performed By: #### ESR, CBC, CMP #### [place] [address] USARBC (Bld) [#/Vol]3.45 10*6/uLLow3.60-5.00The [facility] Partners Physician GroupComment on above:Performed By: #### ESR, CBC, CMP #### [place] [address] USAWBC (Bld) [#/Vol]8.3 10*3/uLNormal3.8-11.6The [facility] Partners Physician GroupComment on above:Performed By: #### ESR, CBC, CMP #### [place] [address] USAComprehensive Metabolic Panelon 51-01-4329Zzzmkpw [Mass/Vol]4.0 g/dLNormal3.5-5.7The [facility] Partners Physician GroupComment on above: Performed By: #### ESR, CBC, CMP #### [place] [address] USAAlbumin/Globulin [Mass ratio]1.6 {ratio}NormalThe [facility] Partners Physician GroupComment on above:Performed By: #### ESR, CBC, CMP #### [place] [address] USAALP [Catalytic activity/Vol]92 U/LYakfza38-074Xvd [facility] Partners Physician GroupComment on above:Result Comment: PERFORMED BY: [place] [address] PATHOLOGIST GENERAL UTILITY MACHINE OPERATOR BERNARDA GARCIA M.D.Performed By: #### ESR, CBC, CMP #### [place] [address] USAALT [Catalytic activity/Vol]12 U/LNormal7-52The [facility] Partners Physician GroupComment on above:Performed By: #### ESR, CBC, CMP #### [place] [address] USAAnion gap [Moles/Vol]14.0 mmol/LNormal6.0-15.0The [facility] Partners Physician GroupComment on above:Performed By: #### ESR, CBC, CMP #### [place] [address] USAAST [Catalytic activity/Vol]16 U/KCkrygc01-57Zlt [facility] Physician GroupComment on above:Performed By: #### ESR, CBC, CMP #### [place] [address] USABilirubin [Mass/Vol]0.4 mg/dLNormal0.3-1.0The [facility] Partners Physician GroupComment on above:Performed By: #### ESR, CBC, CMP #### [place] [address] USACalcium [Mass/Vol]9.8 mg/dLNormal8.6-10.3The [facility] Partners Physician GroupComment on above:Performed By: #### ESR, CBC, CMP #### [address] [place] [address] USAChloride [Moles/Vol]101 mmol/ZRioyqm57-402Wsm [facility] Physician GroupComment on above:Performed By: #### ESR, CBC, CMP #### [facility] [address] [place] [address] USACO2 [Moles/Vol]32.6 mmol/LHigh21.0-31.0The [facility] Partners Physician GroupComment on above:Performed By: #### ESR, CBC, CMP #### [facility] [address] [place] [address] USACreatinine [Mass/Vol]1.26 mg/dLHigh0.60-1.20The [facility] Partners Physician GroupComment on above:Performed By: #### ESR, CBC, CMP #### [facility] [address] [place] [address] USAEstimated GFR42.625 mL/MinNormalThe [facility] Physician [facility] HospitalComment on above:Performed By: #### ESR, CBC, CMP #### [facility] [address] [place] [address] USAGlobulin (S) [Mass/Vol]2.5 g/dLNormalThe [facility] Partners Physician GroupComment on above:Performed By: #### ESR, CBC, CMP #### [facility] [address] [place] [address] USAGlucose [Mass/Vol]179 mg/hCZxpr66-195Heg [facility] Physician GroupComment on above:Result Comment: Random Glucose Reference Range is dependent on time and content of last meal. Glucose of more than 200 mg/dL in a nonstressed, ambulatory subject supports the diagnosis of Diabetes Mellitus. ADA recommended reference rangePerformed By: #### ESR, CBC, CMP #### [facility] [address] [place] [address] USAPotassium [Moles/Vol]3.6 mmol/LNormal3.5-5.1The [facility] Partners Physician GroupComment on above:Performed By: #### ESR, CBC, CMP #### [facility] [address] [place] [address] USAProtein [Mass/Vol]6.5 g/dLNormal6.4-8.9The [facility] Partners Physician GroupComment on above:Performed By: #### ESR, CBC, CMP #### [facility] [address] [place] [address] USASodium [Moles/Vol]144 mmol/TFewbhb443-044Fuu [facility] Physician GroupComment on above:Performed By: #### ESR, CBC, CMP #### [facility] [address] [place] [address] USAUrea nitrogen [Mass/Vol]28 mg/dLHigh7-25The [facility] Partners Physician GroupComment on above:Performed By: #### ESR, CBC, CMP #### [place] [address] USACreatinine [Mass/volume] in Serum or PlasmaOrdered By: Christiano Mcdonnell on 26-30-9254Cldjbnolzq [Mass/Vol]Creatinine [Mass/volume] in Serum or PlasmaHigh0.60-1.20[facility] CenterEosinophils Auto (Bld) [#/Vol]Ordered By: Christiano Mcdonnell on 31-77-2564Ledpmrhptel (Bld) [#/Vol] Automated eosinophil count0.0-0.45[facility] Eosinophils/100 WBC Auto (Bld)Ordered By: Christiano Mcdonnell on 12-10-2024 Eosinophils/100 WBC (Bld)Automated eosinophil %.[facility] CenterErythrocyte Sedimentation Rateon 85-10-3400KHJ (Bld) [Velocity]40 mm/hHigh 0-29The [facility] Partners Physician GroupComment on above:Result Comment: PERFORMED BY: [place] [address] PATHOLOGIST GENERAL UTILITY MACHINE OPERATOR BERNARDA GARCIA M.D.Performed By: #### ESR, CBC, CMP #### [place] [address] USAErythrocyte distribution width Auto (RBC) [Ratio]Ordered By: Christiano Mcdonnell on 60-43-9984Eixwluswnqu distribution width (RBC) [Ratio] Erythrocyte distribution width [Ratio] by Automated count11.9-15.3FMercy Health St. Vincent Medical CenterErythrocyte sedimentation rate by Photometric method Ordered By: Christiano Mcdonnell on 60-99-3709UDC Photometric method (Bld) [Velocity] Erythrocyte sedimentation rate by Photometric methodHigh0-29[facility] CenterGlobulin Calc (S) [Mass/Vol]Ordered By: Christiano Mcdonnell on 48-20-1168Pobhjwxd (S) [Mass/Vol]Serum globulin measurement by calculation (mass/volume)[facility] CenterGlucose [Mass/volume] in Serum or PlasmaOrdered By: Christiano Mcdonnell on 86-94-1706Ohxscwj [Mass/Vol]Glucose [Mass/volume] in Serum or GckgwgPpni06-069AcvvnazcjUniversity Hospitals Geauga Medical Center Comment on above:ADA recommended reference rangeRandom Glucose Reference Range is dependent on time and content of last meal. Glucose of more than 200 mg/dL in a nonstressed, ambulatory subject supports the diagnosisof Diabetes Mellitus. Hematocrit Auto (Bld) [Volume fraction]Ordered By: Christiano Mcdonnell on 12-10-2024 Hematocrit (Bld) [Volume fraction]Hematocrit [Volume Fraction] of Blood by Automated kkmnbBgk18.0-46.4FMercy Health St. Vincent Medical CenterHemoglobin [Mass/volume] in BloodOrdered By: Christiano Mcdonnell on 56-72-0435Iivvwxklcs (Bld) [Mass/Vol]Hemoglobin [Mass/volume] in NejnjLqr44.8-15.4FMercy Health St. Vincent Medical CenterLeukocytes [#/volume] corrected for nucleated erythrocytes in Blood by Automated counOrdered By: Christiano Mcdonnell on 31-82-4082XEB corrected for nucl RBC Auto (Bld) [#/Vol]Leukocytes [#/volume] corrected for nucleated erythrocytes in Blood by Automated coun3.8-11.6FMercy Health St. Vincent Medical Center Lymphocytes Auto (Bld) [#/Vol]Ordered By: Christiano Mcdonnell on 12-10-2024 Lymphocytes (Bld) [#/Vol]Lymphocytes [#/volume] in Blood by Automated count 1.00-4.8[facility] CenterLymphocytes/100 WBC Auto (Bld)Ordered By: Christiano Mcdonnell on 33-12-3874Mzcpomrbsqi/100 WBC (Bld)Lymphocytes/100 leukocytes in Blood by Automated count.UC HealthH Auto (RBC) [Entitic mass]Ordered By: Christiano Mcdonnell on 51-07-8807AJB (RBC) [Entitic mass]MCH [Entitic mass] by Automated count24.7-34.3FMercy Health St. Vincent Medical CenterMCHC Auto (RBC) [Mass/Vol]Ordered By: Christiano Mcdonnell on 48-24-7387QIVF (RBC) [Mass/Vol]MCHC [Mass/volume] by Automated count32.0-35.0[facility] Medical CenterMCV Auto (RBC) [Entitic vol]Ordered By: Christiano Mcdonnell on 84-26-8488IHD (RBC) [Entitic vol]MCV [Entitic volume] by Automated werrw02-478 [facility] CenterMonocytes Auto (Bld) [#/Vol]Ordered By: Christiano Mcdonnell on 07-48-6879Vrhwqfxyl (Bld) [#/Vol]Automated blood monocyte count 0.0-0.8[facility] CenterMonocytes/100 WBC Auto (Bld)Ordered By: Christiano Mcdonnell on 10-63-7161Jrxkoygfw/100 WBC (Bld)Automated monocyte %. [facility] CenterNeutrophils Auto (Bld) [#/Vol]Ordered By: Christiano Mcdonnell on 34-85-6718Kzqsatpkccr (Bld) [#/Vol]Neutrophils [#/volume] in Blood by Automated count1.8-7.7FMercy Health St. Vincent Medical CenterNeutrophils/100 WBC Auto (Bld)Ordered By: Christiano Mcdonnell on 80-35-4826Dyszgucbgem/100 WBC (Bld) Automated neutrophil %.[facility] CenterNo Panel Information Ordered By: Christiano Mcdonnell on 69-79-8017Wdvzhlirc GFR (CKD-EPI)42.625 mL/Min [facility] CenterPharmacy Creatinine Clearance (ChemN/AFMercy Health St. Vincent Medical CenterNucleated erythrocytes [Presence] in Blood by Automated countOrdered By: Christiano Mcdonnell on 20-52-8225Sftszfztw RBC Auto Ql (Bld) Nucleated erythrocytes [Presence] in Blood by Automated count0-0.5FMercy Health St. Vincent Medical CenterPlatelet mean volume Auto (Bld) [Entitic vol]Ordered By: Christiano Mcdonnell on 22-50-7787Gzlasqyk mean volume (Bld) [Entitic vol]Platelet mean volume [Entitic volume] in Blood by Automated count6.3-10.7FMercy Health St. Vincent Medical CenterPlatelets Auto (Bld) [#/Vol]Ordered By: Christiano Mcdonnell on 40-31-0504Mtlzjiqev (Bld) [#/Vol]Platelets [#/volume] in Blood by Automated -251WzfonfmiuUniversity Hospitals Geauga Medical CenterPotassium [Moles/volume] in Serum or PlasmaOrdered By: Christiano Mcdonnell on 82-68-0181Ldpyzynrm [Moles/Vol]Potassium [Moles/volume] in Serum or Plasma3.5-5.1FMercy Health St. Vincent Medical CenterProtein [Mass/volume] in Serum or PlasmaOrdered By: Christiano Mcdonnell on 99-05-7663Ixzxfaf [Mass/Vol]Protein [Mass/volume] in Serum or Plasma6.4-8.9[facility]aug[facility] Medical CenterRBC Auto (Bld) [#/Vol]Ordered By: Christiano Mcdonnell on 10-71-9512NGS (Bld) [#/Vol]Erythrocytes [#/volume] in Blood by Automated countLow3.60-5.00 [facility] Centererum or plasma albumin/globulin mass ratio Ordered By: Christiano Mcdonnell on 96-45-0610Gkktoag/Globulin [Mass ratio]Serum or plasma albumin/globulin mass ratioSouthview Medical Centererum or plasma anion gap determinationOrdered By: Christiano Mcdonnell on 10-54-5031Nhiqi gap [Moles/Vol]Serum or plasma anion gap determination6.0-15.0[facility] Medical Centerodium [Moles/volume] in Serum or PlasmaOrdered By: Christiano Mcdonnell on 03-52-5143Cqkugz [Moles/Vol]Sodium [Moles/volume] in Serum or Fgoxsc515-873 [facility] Medical CenterUrea nitrogen [Mass/volume] in Serum or Plasma Ordered By: Christiano Mcdonnell on 83-95-4796Njva nitrogen [Mass/Vol]Urea nitrogen [Mass/volume] in Serum or PlasmaHigh7-25[facility] Medical CenterWBC Auto (Bld) [#/Vol]Ordered By: Christiano Mcdonnell on 49-94-5754IZS (Bld) [#/Vol] Leukocytes [#/volume] in Blood by Automated count3.8-11.6FMercy Health St. Vincent Medical CenterOffice Visiton 85-70-5698Nuzpyx-up [id number] Harman Mcleod 1940 F Date Provider Department Center 11/05/2024 MarieHECTOR BRIAN [facility]ARD [facility] Family History Problem Relation Age of Onset Stroke Mother Coronary artery disease Father Heart attack Father Family Status - Relation Status Age at Mother Father Level of Service:[address] CT OFFICE[facility]ANA Antinuclear Antibodieson 10-29-2024 Antinuclear Abs, IFANegativeNormal.The [facility] Partners Physician GroupComment on above:Result Comment: Negative <1:80 Borderline 1:80 Positive >1:80 ICAP nomenclature: AC-0 For more information about Hep-2 cell patterns use ANApatterns.org, the official website for the International Consensus on Antinuclear Antibody (TYLER) Patterns (ICAP). Performed at: CB - [facility] [place] [id number] Flow Match Sofa Cutter: Esteban Martinez PhD, Phone: [phone] PERFORMED BY: [place] [address] PATHOLOGIST GENERAL UTILITY MACHINE OPERATOR BERNARDA GARCIA M.D.Performed By: #### CBC, CRP, CMP, URIC, ESR #### [address] #### [place] #### [facility] ,Alanine aminotransferase [Enzymatic activity/volume] in Serum or PlasmaOrdered By: Christiano Mcdonnell on 91-28-0108XOT [Catalytic activity/Vol]Alanine aminotransferase [Enzymatic activity/volume] in Serum or Plasma[address] [place], [place] [address]Albumin [Mass/volume] in Serum or Plasma by Bromocresol green (BCG) dye binding methoOrdered By: Christiano Mcdonnell on 36-52-0209Gexeixg BCG dye [Mass/Vol]Albumin [Mass/volume] in Serum or Plasma by Bromocresol green (BCG) dye binding metho3.5-5.7FMercy Health St. Vincent Medical CenterAlkaline phosphatase [Enzymatic activity/volume] in Serum or PlasmaOrdered By: Christiano Mcdonnell on 00-75-5162HGB [Catalytic activity/Vol]Alkaline phosphatase [Enzymatic activity/volume] in Serum or Ejhxtw73-444UkmmpudksUniversity Hospitals Geauga Medical Center Aspartate aminotransferase [Enzymatic activity/volume] in Serum or PlasmaOrdered By: Christiano Mcdonnell on 52-05-6492FVX [Catalytic activity/Vol]Aspartate aminotransferase [Enzymatic activity/volume] in Serum or Hluoqo00-47ZjhwjvypqUniversity Hospitals Geauga Medical CenterBasophils Auto (Bld) [#/Vol]Ordered By: Christiano Mcdonnell on 44-55-3955Fouwgfwff (Bld) [#/Vol]Automated basophil count0.0-0.2FMercy Health St. Vincent Medical CenterBasophils/100 WBC Auto (Bld)Ordered By: Christiano Mcdonnell on 14-41-5700Lclhxnlmz/100 WBC (Bld)Automated basophil %.[facility] Medical CenterBilirubin.total [Mass/volume] in Serum or PlasmaOrdered By: Christiano Mcdonnell on 19-47-1668Twyrhvnos [Mass/Vol]Bilirubin.total [Mass/volume] in Serum or Plasma0.3-1.0[facility] Medical CenterC reactive protein [Mass/volume] in Serum or PlasmaOrdered By: Christiano Mcdonnell on 97-56-9664CED [Mass/Vol]C reactive protein [Mass/volume] in Serum or PlasmaHigh0.0-0.5 [facility] CenterC-Reactive Proteinon 56-16-0655G-Reactive Protein4.6 mg/dLHigh0.0-0.5The [facility] Partners Physician GroupComment on above:Result Comment: PERFORMED BY: [place] [address] PATHOLOGIST GENERAL UTILITY MACHINE OPERATOR BERNARDA GARCIA M.D.Performed By: #### CBC, CRP, CMP, URIC, ESR #### [place] [address] [place] #### [place] #### [facility] ,Calcium [Mass/volume] in Serum or PlasmaOrdered By: Christiano Mcdonnell on 05-45-0823Wpmfoub [Mass/Vol]Calcium [Mass/volume] in Serum or Plasma8.6-10.3 [facility] CenterCarbon dioxide, total [Moles/volume] in Serum or PlasmaOrdered By: Christiano Martinrow on 17-08-4612OX7 [Moles/Vol]Carbon dioxide, total [Moles/volume] in Serum or Ejmbsv20.0-31.0[facility] Medical CenterChloride [Moles/volume] in Serum or PlasmaOrdered By: Christianoanali Mcdonnell on 45-78-5329Mxubncgm [Moles/Vol]Chloride [Moles/volume] in Serum or Sdcmbf68-724 [facility] Medical CenterComplete Blood Count Auto Diffon 10-29-2024 Basophils (Bld) [#/Vol]0.1 10*3/uLNormal0.0-0.2The [facility] Comment on above:Performed By: #### CBC, CRP, CMP, URIC, ESR #### [place] [address] [place] #### [place] #### [facility] ,Basophils/100 WBC (Bld)0.5 %Normal.The [facility] Partners Physician GroupComment on above:Performed By: #### CBC, CRP, CMP, URIC, ESR #### [place] [address] [place] #### [place] #### [facility] ,Eosinophils (Bld) [#/Vol]0.1 10*3/uLNormal0.0-0.45The [facility] Comment on above:Performed By: #### CBC, CRP, CMP, URIC, ESR #### [place] [address] [place] #### [place] #### [facility] ,Eosinophils/100 WBC (Bld)1.3 %Normal.The [facility] Partners Physician GroupComment on above:Performed By: #### CBC, CRP, CMP, URIC, ESR #### [place] [address] [place] #### [place] #### [facility] ,Erythrocyte distribution width (RBC) [Ratio]15.5 %High11.9-15.3The [facility] Partners Physician GroupComment on above:Performed By: #### CBC, CRP, CMP, URIC, ESR #### [address] #### [place] #### [facility] ,Hematocrit (Bld) [Volume fraction]32.0 %Low34.0-46.4The [facility] Partners Physician GroupComment on above:Performed By: #### CBC, CRP, CMP, URIC, ESR #### [address] #### [place] #### [facility] ,Hemoglobin (Bld) [Mass/Vol]10.5 g/dLLow11.8-15.4The [facility] Comment on above:Performed By: #### CBC, CRP, CMP, URIC, ESR #### [address] #### [place] #### [facility] ,Lymphocytes (Bld) [#/Vol]2.5 10*3/uLNormal1.00-4.8The [facility] Comment on above:Performed By: #### CBC, CRP, CMP, URIC, ESR #### [address] #### [place] #### [facility] ,Lymphocytes/100 WBC (Bld)22.2 %Normal.The [facility] Partners Physician GroupComment on above:Performed By: #### CBC, CRP, CMP, URIC, ESR #### [place] [address] [place] #### [place] #### [facility] ,MCH (RBC) [Entitic mass]30.1 ohYpefzq79.7-34.3The [facility] Comment on above:Performed By: #### CBC, CRP, CMP, URIC, ESR #### [place] [address] [place] #### [place] #### [facility] ,MCV (RBC) [Entitic vol]91.7 sAYfhyqr70-686Aat [facility] Physician GroupComment on above:Performed By: #### CBC, CRP, CMP, URIC, ESR #### [place] [address] [place] #### [place] #### [facility] ,Mean Corpuscular HGB Conc32.8 g/uPWcqiad28.0-35.0The [facility] Comment on above:Performed By: #### CBC, CRP, CMP, URIC, ESR #### [address] #### [place] #### [facility] ,Monocytes (Bld) [#/Vol]0.8 10*3/uLNormal0.0-0.8The [facility] Comment on above:Performed By: #### CBC, CRP, CMP, URIC, ESR #### [place] [address] [place] #### [place] #### [facility] ,Monocytes/100 WBC (Bld)7.4 %Normal.The [facility] Physician GroupComment on above:Performed By: #### CBC, CRP, CMP, URIC, ESR #### [place] [address] [place] #### [place] #### [facility] ,Neutrophils (Bld) [#/Vol]7.6 10*3/uLNormal1.8-7.7The [facility] Comment on above:Performed By: #### CBC, CRP, CMP, URIC, ESR #### [place] [address] [place] #### [place] #### [facility] ,Neutrophils/100 WBC (Bld)68.6 %Normal.The [facility] Partners Physician GroupComment on above:Performed By: #### CBC, CRP, CMP, URIC, ESR #### [facility] [address] [place] [address] #### [place] #### [facility] ,NRBC%0.1 /100{WBC}Normal0-0.5The [facility] Partners Physician GroupComment on above: Performed By: #### CBC, CRP, CMP, URIC, ESR #### [facility] [address] [place] [address] [place] #### [place] #### [facility] ,Platelet mean volume (Bld) [Entitic vol]7.9 fLNormal6.3-10.7The [facility] Partners Physician GroupComment on above:Performed By: #### CBC, CRP, CMP, URIC, ESR #### [address] #### [place] #### [facility] ,Platelets (Bld) [#/Vol]280 10*3/yEXvjqfd077-061Dzj [facility] Comment on above:Performed By: #### CBC, CRP, CMP, URIC, ESR #### [facility] [address] [place] [address] #### [place] #### [facility] ,RBC (Bld) [#/Vol]3.49 10*6/uLLow3.60-5.00The [facility] Physician GroupComment on above:Performed By: #### CBC, CRP, CMP, URIC, ESR #### [place] [address] [place] #### [place] #### [facility] ,WBC (Bld) [#/Vol]11.1 10*3/uLNormal3.8-11.6The [facility] Physician GroupComment on above:Performed By: #### CBC, CRP, CMP, URIC, ESR #### [facility] [address] [place] [address] [place] #### [place] #### [facility] ,Comprehensive Metabolic Panelon 19-49-0059Amlpdag [Mass/Vol]3.7 g/dLNormal 3.5-5.7The [facility] Physician GroupComment on above:Performed By: #### CBC, CRP, CMP, URIC, ESR #### [address] #### [place] #### [facility] ,Albumin/Globulin [Mass ratio]1.4 {ratio}NormalThe [facility] Comment on above:Performed By: #### CBC, CRP, CMP, URIC, ESR #### [address] #### [place] #### [facility] ,ALP [Catalytic activity/Vol]78 U/QQtrpqw29-923Cpt [facility] Comment on above:Performed By: #### CBC, CRP, CMP, URIC, ESR #### [address] #### [place] #### [facility] ,ALT [Catalytic activity/Vol]11 U/LNormal7-52The [facility] Comment on above:Performed By: #### CBC, CRP, CMP, URIC, ESR #### [address] #### [place] #### [facility] ,Anion gap [Moles/Vol]13.8 mmol/LNormal6.0-15.0The [facility] Comment on above:Performed By: #### CBC, CRP, CMP, URIC, ESR #### [place] [address] [place] #### [place] #### [facility] ,AST [Catalytic activity/Vol]13 U/HOlewpb63-50Zgo [facility] Comment on above:Performed By: #### CBC, CRP, CMP, URIC, ESR #### [facility] [address] [place] [address] [place] #### [place] #### [facility] ,Bilirubin [Mass/Vol]0.4 mg/dLNormal0.3-1.0The [facility] Physician GroupComment on above:Performed By: #### CBC, CRP, CMP, URIC, ESR #### [facility] [address] [place] [address] #### [place] #### [facility] ,Calcium [Mass/Vol]9.3 mg/dLNormal8.6-10.3The [facility] Partners Physician GroupComment on above:Performed By: #### CBC, CRP, CMP, URIC, ESR #### [facility] [address] [place] [address] #### [place] #### [facility] ,Chloride [Moles/Vol]100 mmol/GNcttnf62-547Nru [facility] Physician GroupComment on above:Performed By: #### CBC, CRP, CMP, URIC, ESR #### [facility] [address] [place] [address] #### [place] #### [facility] ,CO2 [Moles/Vol]30.5 mmol/PAdpaes63.0-31.0The [facility] Partners Physician GroupComment on above:Performed By: #### CBC, CRP, CMP, URIC, ESR #### [address] #### [place] #### [facility] ,Creatinine [Mass/Vol]1.29 mg/dLHigh0.60-1.20The [facility] Comment on above:Performed By: #### CBC, CRP, CMP, URIC, ESR #### [facility] [address] [place] [address] [place] #### [place] #### [facility] ,Estimated GFR41.438 mL/MinNormalThe [facility] Partners Physician GroupComment on above: Performed By: #### CBC, CRP, CMP, URIC, ESR #### [facility] [address] [place] [address] [place] #### [place] #### [facility] ,Globulin (S) [Mass/Vol]2.7 g/dLNormMary Rutan Hospitale [facility] Physician GroupComment on above:Performed By: #### CBC, CRP, CMP, URIC, ESR #### [place] [address] [place] #### [place] #### [facility] ,Glucose [Mass/Vol]134 mg/sMPsij65-801Xsz [facility] Physician GroupComment on above:Result Comment: Random Glucose Reference Range is dependent on time and content of last meal. Glucose of more than 200 mg/dL in a nonstressed, ambulatory subject supports the diagnosis of Diabetes Mellitus. ADA recommended reference rangePerformed By: #### CBC, CRP, CMP, URIC, ESR #### [address] #### [place] #### [facility] ,Potassium [Moles/Vol]3.3 mmol/LLow3.5-5.1The [facility] Partners Physician GroupComment on above:Performed By: #### CBC, CRP, CMP, URIC, ESR #### [place] [address] [place] #### [place] #### [facility] ,Protein [Mass/Vol]6.4 g/dLNormal6.4-8.9The [facility] Partners Physician GroupComment on above:Performed By: #### CBC, CRP, CMP, URIC, ESR #### [place] [address] [place] #### [place] #### [facility] ,Sodium [Moles/Vol]141 mmol/XKdmacm406-541Wup [facility] Physician GroupComment on above:Performed By: #### CBC, CRP, CMP, URIC, ESR #### [place] [address] [place] #### [place] #### [facility] ,Urea nitrogen [Mass/Vol]21 mg/dLNormal7-25The [facility] Partners Physician GroupComment on above:Performed By: #### CBC, CRP, CMP, URIC, ESR #### [facility] [address] [place] [address] #### [place] #### [facility] ,Creatinine [Mass/volume] in Serum or PlasmaOrdered By: Christiano Mcdonnell on 79-03-7356Jghlecwhnz [Mass/Vol]Creatinine [Mass/volume] in Serum or PlasmaHigh 0.60-1.20[facility] CenterEosinophils Auto (Bld) [#/Vol]Ordered By: Christiano Mcdonnell on 46-15-6056Akciwpblxvv (Bld) [#/Vol]Automated eosinophil count0.0-0.45[facility] CenterEosinophils/100 WBC Auto (Bld) Ordered By: Christiano Mcdonnell on 05-78-4866Uldprmmeckv/100 WBC (Bld)Automated eosinophil %.[facility] CenterErythrocyte Sedimentation Rateon 59-64-7853YWQ (Bld) [Velocity]78 mm/hHigh0-29The [facility] Comment on above:Result Comment: PERFORMED BY: [place] [address] PATHOLOGIST GENERAL UTILITY MACHINE OPERATOR BERNARDA GARCIA M.D.Performed By: #### CBC, CRP, CMP, URIC, ESR #### [facility] [address] [place] [address] #### [place] #### [facility] ,Erythrocyte distribution width Auto (RBC) [Ratio]Ordered By: Christiano Mcdonnell on 73-90-0964Qfjyaoofxmo distribution width (RBC) [Ratio]Erythrocyte distribution width [Ratio] by Automated twjdqHglq70.9-15.3FMercy Health St. [facility] Center Erythrocyte sedimentation rate by Photometric methodOrdered By: Christiano Mcdonnell on 35-07-9561VMM Photometric method (Bld) [Velocity]Erythrocyte sedimentation rate by Photometric methodHigh0-29[facility] CenterGlobulin Calc (S) [Mass/Vol]Ordered By: Christiano Mcdonnell on 03-48-0317Luphmqoe (S) [Mass/Vol] Serum globulin measurement by calculation (mass/volume)[facility] CenterGlucose [Mass/volume] in Serum or PlasmaOrdered By: Christiano Mcdonnell on 55-71-0524Jxpuwdy [Mass/Vol]Glucose [Mass/volume] in Serum or PlasmaHigh 70-100[facility] CenterComment on above:ADA recommended reference rangeRandom Glucose Reference Range is dependent on time and content of last meal. Glucose of more than 200 mg/dL in a nonstressed, ambulatory subject supports the diagnosisof Diabetes Mellitus.Hematocrit Auto (Bld) [Volume fraction]Ordered By: Christiano Mcdonnell on 72-79-3794Xqucfbeeaa (Bld) [Volume fraction]Hematocrit [Volume Fraction] of Blood by Automated rcmbdHkp60.0-46.4 [facility] CenterHemoglobin [Mass/volume] in BloodOrdered By: Christiano Mcdonnell on 12-36-7884Vpconhzais (Bld) [Mass/Vol]Hemoglobin [Mass/volume] in NwcdoTdt43.8-15.4FMercy Health St. Vincent Medical CenterLeukocytes [#/volume] corrected for nucleated erythrocytes in Blood by Automated counOrdered By: Christiano Mcdonnell on 97-57-4085FZS corrected for nucl RBC Auto (Bld) [#/Vol] Leukocytes [#/volume] corrected for nucleated erythrocytes in Blood by Automated coun3.8-11.6FMercy Health St. Vincent Medical CenterLymphocytes Auto (Bld) [#/Vol] Ordered By: Christiano Mcdonnell on 66-85-1270Bbgcbnsrgim (Bld) [#/Vol]Lymphocytes [#/volume] in Blood by Automated count1.00-4.8[facility] Lymphocytes/100 WBC Auto (Bld)Ordered By: Christiano Mcdonnell on 10-29-2024 Lymphocytes/100 WBC (Bld)Lymphocytes/100 leukocytes in Blood by Automated count. UC HealthH Auto (RBC) [Entitic mass]Ordered By: Christiano Mcdonnell on 30-55-3574CQN (RBC) [Entitic mass]MCH [Entitic mass] by Automated count24.7-34.3FMercy Health St. Vincent Medical CenterMCHC Auto (RBC) [Mass/Vol]Ordered By: Christiano Mcdonnell on 63-51-5011RWNX (RBC) [Mass/Vol]MCHC [Mass/volume] by Automated count32.0-35.0[facility] Medical CenterMCV Auto (RBC) [Entitic vol]Ordered By: Christiano Mcdonnell on 78-65-9744MQV (RBC) [Entitic vol]MCV [Entitic volume] by Automated -356McnorvjioUniversity Hospitals Geauga Medical CenterMonocytes Auto (Bld) [#/Vol]Ordered By: Christiano Mcdonnell on 72-44-4200Misucemwn (Bld) [#/Vol]Automated blood monocyte count0.0-0.8[facility] CenterMonocytes/100 WBC Auto (Bld)Ordered By: Christiano Mcdonnell on 09-30-4231Ejxswgcgg/100 WBC (Bld)Automated monocyte %.[facility] Medical CenterNeutrophils Auto (Bld) [#/Vol]Ordered By: Christiano Mcdonnell on 99-80-0709Hyouybtjeen (Bld) [#/Vol]Neutrophils [#/volume] in Blood by Automated count1.8-7.7FMercy Health St. Vincent Medical CenterNeutrophils/100 WBC Auto (Bld) Ordered By: Christiano Mcdonnell on 02-53-7762Ssnwzngwbky/100 WBC (Bld)Automated neutrophil %.[facility] CenterNo Panel InformationOrdered By: Christiano Mcdonnell on 83-13-9952Byowtfnqc GFR (CKD-EPI)41.438 mL/MinUniversity Hospitals Geauga Medical CenterPharmacy Creatinine Clearance (ChemN/AFMercy Health St. Vincent Medical CenterNucleated erythrocytes [Presence] in Blood by Automated count Ordered By: Christiano Mcdonnell on 53-06-7928Sxrnpvngu RBC Auto Ql (Bld)Nucleated erythrocytes [Presence] in Blood by Automated count0-0.5FMercy Health St. Vincent Medical CenterPlatelet mean volume Auto (Bld) [Entitic vol]Ordered By: Christiano Mcdonnell on 09-13-4651Krnyxmov mean volume (Bld) [Entitic vol]Platelet mean volume [Entitic volume] in Blood by Automated count6.3-10.7FMercy Health St. Vincent Medical CenterPlatelets Auto (Bld) [#/Vol]Ordered By: Christiano Mcdonnell on 10-29-2024 Platelets (Bld) [#/Vol]Platelets [#/volume] in Blood by Automated -624 [facility] CenterPotassium [Moles/volume] in Serum or Plasma Ordered By: Christiano Mcdonnell on 71-41-1777Lwezwgexd [Moles/Vol]Potassium [Moles/volume] in Serum or PlasmaLow3.5-5.1FMercy Health St. Vincent Medical Center Protein [Mass/volume] in Serum or PlasmaOrdered By: Christiano Mcdonnell on 10-29-2024 Protein [Mass/Vol]Protein [Mass/volume] in Serum or Plasma6.4-8.9[facility] Medical CenterRBC Auto (Bld) [#/Vol]Ordered By: Christiano Mcdonnell on 53-83-7289SIZ (Bld) [#/Vol]Erythrocytes [#/volume] in Blood by Automated count Low3.60-5.00[facility]view Medical Centererum nuclear antibody titerOrdered By: Christiano Mcdonnell on 22-12-2149Pprfnyi Ab (S) [Titer]Serum nuclear antibody titer.[facility] Medical CenterComment on above:Negative <1:80 Borderline 1:80 Positive >1:80ICAP nomenclature: AC-0For more information about Hep-2 cell patterns useANApatterns.org, the official website for theInternational Consensus on Antinuclear Antibody (TYLER)Patterns (ICAP).Performed at: [place] [id number] Director: Esteban Martinez PhD, Phone: [phone] or plasma albumin/globulin mass ratioOrdered By: Christiano Mcdonnell on 10-29-2024 Albumin/Globulin [Mass ratio]Serum or plasma albumin/globulin mass ratio [facility] Centererum or plasma anion gap determinationOrdered By: Christinao Mcdonnell on 34-70-3547Rmvvj gap [Moles/Vol]Serum or plasma anion gap determination6.0-15.0[facility] Medical Centerodium [Moles/volume] in Serum or PlasmaOrdered By: Christiano Mcdonnell on 84-60-5442Cctqgr [Moles/Vol]Sodium [Moles/volume] in Serum or Ttqkgt408-917ObfbnghqnUniversity Hospitals Geauga Medical CenterUrate [Mass/volume] in Serum or PlasmaOrdered By: Christiano Mcdonnell on 27-89-5548Drtjz [Mass/Vol]Urate [Mass/volume] in Serum or Plasma2.3-6.6FMercy Health St. Vincent Medical CenterUrea nitrogen [Mass/volume] in Serum or PlasmaOrdered By: Christiano Mcdonnell on 61-43-3066Kcbu nitrogen [Mass/Vol]Urea nitrogen [Mass/volume] in Serum or Plasma7-[facility] Medical CenterUric Acidon 54-58-3115Tztoy [Mass/Vol]4.7 mg/dLNormal2.3-6.6The [facility] Partners Physician GroupComment on above: Performed By: #### CBC, CRP, CMP, URIC, ESR #### [facility] [address] #### [place] #### [facility] ,WBC Auto (Bld) [#/Vol]Ordered By: Christiano Mcdonnell on 87-58-2353NAD (Bld) [#/Vol] Leukocytes [#/volume] in Blood by Automated count3.8-11.6FMercy Health St. Vincent Medical CenterCNPNon 82-37-0013JYOVHntrrpxyz (HEMASA) HARMAN MCLEOD ([id number]) 1940 F Date Time Provider Department 10/09/24 VAIBHAV ASHTON HEMASA During your visit today, we recorded the following information about you: Vaibhav Ashton MD 10/09/2024 8:39 AM Signed Please tell her to start OTC B12 supplements 1000mcg one tab daily for the low B12 levels. Thank you. Vernell Dey, RN 10/09/2024 9:02 AM Signed Pt informed [...] daily at bedtime. 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 Stage 3a chronic kidney disease (HCC) [N18.31] 02/14/2023 Encounter Status:Closed by VERNELL DEY on 10/09/24NormalCregency hospital cle[facility] eastand [facility] W Auto Differential panel (Bld)on 04-84-9394Lnhzmzqsp (Bld) [#/Vol] 0.04 10*3/uLNINFMercy Health Perrysburg HospitalBasophils/100 WBC (Bld)0.4 %[facility] Differential cell count method Nom (Bld)AutoCleveland ClinicEosinophils (Bld) [#/Vol]0.30 10*3/uLNINFCleFulton County Health CenterEosinophils/100 WBC (Bld)2.9 %[facility] HospitalErythrocyte distribution width (RBC) [Ratio]14.6 %11.5 - 15.0 %[facility] HospitalHematocrit (Bld) [Volume fraction]31.9 %Low36.0 - 46.0 %[facility] Hemoglobin (Bld) [Mass/Vol]10.6 g/dLLow11.5 - 15.5 g/dLMercy Health Perrysburg HospitalImmature granulocytes (Bld) [#/Vol]0.07 10*3/uLNINFMercy Health Perrysburg HospitalImmaeast ohio regional hospital granulocytes/100 WBC (Bld)0.7 %[facility] HospitalInterpretation and review of laboratory resultsAbnormalClevelatrium health stanly ClinicLymphocytes (Bld) [#/Vol]2.55 10*3/uL [facility] HospitalLymphocytes/100 WBC (Bld)24.6 %[facility] CampusH (RBC) [Entitic mass]31.0 pg26.0 - 34.0 pgCMartins Ferry HospitalHC (RBC) [Mass/Vol]33.2 g/dL30.5 - 36.0 g/dLKettering Health Main CampusV (RBC) [Entitic vol]93.3 fL80.0 - 100.0 fLCAccess Hospital DaytonMonocytes (Bld) [#/Vol]0.86 10*3/uLNINFMercy Health Perrysburg Hospital Monocytes/100 WBC (Bld)8.3 %[facility] HospitalNeutrophils (Bld) [#/Vol]6.53 10*3/uLMercy Health Perrysburg HospitalNeutrophils/100 WBC (Bld)63.1 %[facility] HospitalNucleated RBC (Bld) [#/Vol]NINFClevelBrecksville VA / Crille HospitalNucleated RBC/100 WBC (Bld) [Ratio]0.0 % /100 WBCMercy Health Perrysburg HospitalPlatelet mean volume (Bld) [Entitic vol]8.9 fLLow9.0 - 12.7 fLCcleveland clinic akron general lodi hospital ClinicPlatelets (Bld) [#/Vol]290 10*3/uLMercy Health Perrysburg HospitalRBC (Bld) [#/Vol]3.42 10*6/uLLow3.90 - 5.20 m/uLMercy Health Perrysburg HospitalWBC (Bld) [#/Vol] 10.35 10*3/uLNewark Hospital ClinicBasophils (Bld) [#/Vol]0.04 10*3/uL Normal<0.11COhioHealth Grant Medical Center on above:Order Comment: Specimen Type: BLOOD SPECIMEN Ordering Facility: [facility] Address: [address] [place], [place] [address]Performed By: #### 55847-4 #### [facility] CLIA [id number] [address] [place], [place] [address]Turdcfccn/100 WBC (Bld)0.4 %NormalGuernsey Memorial Hospital Comment on above:Order Comment: Specimen Type: BLOOD SPECIMEN Ordering Facility: [facility] Address: [address] [place], [place] [address]Performed By: #### 63827-0 #### [facility] CLIA [id number] [address] [place] [address] 658[address]Assjzipggjwo cell count method Nom (Bld)AutoNormalCSelect Medical Specialty Hospital - YoungstownCommunising memorial hospital on above:Order Comment: Specimen Type: BLOOD SPECIMEN Ordering Facility: [facility] Address: [address] [place], [place] [address]Performed By: #### 33509-4 #### [facility] CLIA [id number] [address] [place] [address] 25407Spzgilptoiv (Bld) [#/Vol]0.30 10*3/uLNormal<0.46[facility] on above:Order Comment: Specimen Type: BLOOD SPECIMEN Ordering Facility: [facility] Address: [address] [place], [place] [address]Performed By: #### 69847-5 #### [facility] CLIA [id number] [address] [place], [place] [address]Wgkotcjdrur/100 WBC (Bld)2.9 %NormalGuernsey Memorial Hospital Comment on above:Order Comment: Specimen Type: BLOOD SPECIMEN Ordering Facility: [facility] Address: [address] [place], [place] [address]Performed By: #### 05871-1 #### [facility] CLIA [id number] [address] [place] [address] 89498Jgjitkanjdp distribution width (RBC) [Ratio]14.6 %Normal 11.5-15.0[facility] on above:Order Comment: Specimen Type: BLOOD SPECIMEN Ordering Facility: [facility] Address: [address] [place], [place] [address]Performed By: #### 20321-4 #### [facility] CLIA [id number] [address] [place] [address] 04206Dbmtiuwash (Bld) [Volume fraction]31.9 %Low36.0-46.0[facility] on above:Order Comment: Specimen Type: BLOOD SPECIMEN Ordering Facility: [facility] Address: [address] [place], [place] [address]Performed By: #### 96192-5 #### [facility] CLIA [id number] [address] [place] [address] 04389Vvihptsdyb (Bld) [Mass/Vol]10.6 g/dLLow11.5-15.5COhioHealth Grant Medical Center on above:Order Comment: Specimen Type: BLOOD SPECIMEN Ordering Facility: [facility] Address: [address] [place], [place] [address]Performed By: #### 89371-9 #### [facility] CLIA [id number] [address] [place] [address] 81031Htokrcgd granulocytes (Bld) [#/Vol]0.07 10*3/uLNormal<0.10 [facility] on above:Order Comment: Specimen Type: BLOOD SPECIMEN Ordering Facility: [facility] Address: [address] [place], [place] [address]Performed By: #### 41621-1 #### [facility] CLIA [id number] [address] [place] [address] 55[address]Piehqtwg granulocytes/100 WBC (Bld)0.7 %NormalWestern Reserve Hospital on above:Order Comment: Specimen Type: BLOOD SPECIMEN Ordering Facility: [facility] Address: [address] [place], [place] [address]Performed By: #### 13679-4 #### [facility] CLIA [id number] [address] [place], [place] [address]Dhyzuvlmcfd (Bld) [#/Vol]2.55 10*3/uLNormal1.00-4.00[facility] on above:Order Comment: Specimen Type: BLOOD SPECIMEN Ordering Facility: [facility] Address: [address] [place], [place] [address]Performed By: #### 83376-0 #### [facility] CLIA [id number] [address] [place] [address] 59330Yscktjaawrd/100 WBC (Bld)24.6 %NormalWestern Reserve Hospital on above:Order Comment: Specimen Type: BLOOD SPECIMEN Ordering Facility: [facility] Address: [address] [place], [place] [address]Performed By: #### 41914-6 #### [facility] CLIA [id number] [address] [place] [address] 96202XEW (RBC) [Entitic mass]31.0 acFomrxm91.0-34.0[facility] on above:Order Comment: Specimen Type: BLOOD SPECIMEN Ordering Facility: [facility] Address: [address] [place], [place] [address]Performed By: #### 89386-1 #### [facility] CLIA [id number] [address] [place] [address] 19629TLMK (RBC) [Mass/Vol]33.2 g/sLXjaqgy17.5-36.0[facility] on above:Order Comment: Specimen Type: BLOOD SPECIMEN Ordering Facility: [facility] Address: [address] [place], [place] [address]Performed By: #### 36601-9 #### [facility] CLIA [id number] [address] [place] [address] 31661OKZ (RBC) [Entitic vol]93.3 bJUsawqg09.0-100.0[facility] on above:Order Comment: Specimen Type: BLOOD SPECIMEN Ordering Facility: [facility] Address: [address] [place], [place] [address]Performed By: #### 25284-5 #### [facility] CLIA [id number] [address] [place] [address] 17793Nwsogeceh (Bld) [#/Vol]0.86 10*3/uLNormal<0.87[facility] on above:Order Comment: Specimen Type: BLOOD SPECIMEN Ordering Facility: [facility] Address: [address] [place], [place] [address]Performed By: #### 17466-1 #### [facility] CLIA [id number] [address] [place] [address] 28405Fxkspehmg/100 WBC (Bld)8.3 %NormalGuernsey Memorial Hospital Comment on above:Order Comment: Specimen Type: BLOOD SPECIMEN Ordering Facility: [facility] Address: [address] [place], [place] [address]Performed By: #### 41215-5 #### [facility] CLIA [id number] [address] [place] [address] 53832Jiwheaatrei (Bld) [#/Vol]6.53 10*3/uLNormal1.45-7.50[facility] on above:Order Comment: Specimen Type: BLOOD SPECIMEN Ordering Facility: [facility] Address: [address] [place], [place] [address]Performed By: #### 20843-1 #### [facility] CLIA [id number] [address] [place] [address] 74638Bvxfrwfzdgb/100 WBC (Bld)63.1 %NormalWestern Reserve Hospital on above:Order Comment: Specimen Type: BLOOD SPECIMEN Ordering Facility: [facility] Address: [address] [place], [place] [address]Performed By: #### 96181-9 #### [facility] CLIA [id number] [address] [place] [address] 25059Iaydwkobz RBC (Bld) [#/Vol]10*3/uLNormal<0.01[facility] on above:Order Comment: Specimen Type: BLOOD SPECIMEN Ordering Facility: [facility] Address: [address] [place], [place] [address]Performed By: #### 77135-6 #### [facility] CLIA [id number] [address] [place], [place] [address]Icyfhtudw RBC/100 WBC (Bld) [Ratio]0.0 /100 WBCNormalCOhioHealth Grant Medical Center on above:Order Comment: Specimen Type: BLOOD SPECIMEN Ordering Facility: [facility] Address: [address] [place], [place] [address]Performed By: #### 45961-5 #### [facility] CLIA [id number] [address] [place], [place] [address]Rhdxrukm mean volume (Bld) [Entitic vol]8.9 fLLow9.0-12.7 [facility] on above:Order Comment: Specimen Type: BLOOD SPECIMEN Ordering Facility: [facility] Address: [address] [place], [place] [address]Performed By: #### 71719-0 #### [facility] CLIA [id number] [address] [place], [place] [address]Nxzsixmtc (Bld) [#/Vol]290 10*3/wWQzhqud395-604BlmwlseqoWestern Reserve Hospital on above:Order Comment: Specimen Type: BLOOD SPECIMEN Ordering Facility: [facility] Address: [address] [place], [place] [address]Performed By: #### 15317-8 #### [facility] CLIA [id number] [address] [place], [place] [address]KSM (Bld) [#/Vol]3.42 10*6/uLLow3.90-5.20[facility] on above:Order Comment: Specimen Type: BLOOD SPECIMEN Ordering Facility: [facility] Address: [address] [place] [address], [place] [address]Cntqnsqyk By: #### 72690-4 #### [facility] CLIA [id number] [address] [place] [address] 738[address]CPZ (Bld) [#/Vol]10.35 10*3/uLNormal3.70-11.00Guernsey Memorial HospitalComment on above:Order Comment: Specimen Type: BLOOD SPECIMEN Ordering Facility: [facility] Address: [facility] [place], [place] [address]Xgzjalemi By: #### 78514-8 #### [facility] CLIA [id number] [address] [place], [place] [address]CJBIIMso 64-44-2882SPSGRDEserp (SP) Office (HEMASA) HARSHAHARMAN Coronel ([id number]) 1940 F Date Time Provider Department 10/08/24 1:00 PM VAIBHAV ASHTON During your visit today, we recorded the following information about you: Temperature Pulse Respiration Blood pressure 97.2 degrees 75/minute 16/minute 144/63 Weight Height 67.5 kg 1.549 m Vaibhav Ashton MD 10/08/2024 2:03 PM Addendum PATIENT NAME: Harman Coronel [facility] NO.: [id number] ATTENDING PHYSICIAN: Vaibhav Ashton MD DATE OF SERVICE: 10/08/24 Some of the elements of this note have been copied from Winnie MILLAN previous progress note dated 06/20/23. All the information has been reviewed carefully. CC: Follow up Diagnosis: T1b, N0, M0- R breast, Tumor 9 mm, Grade 2, Margins negative, Negative LVI, 2 SNL negative, ER and CT >95% positive, Her2 IHC 1+ Treatment History: [...] in Jun 2024 - Mammogram done at [facility] On eliquis for Afib PAST MEDICAL [...] 30 04/28/2020 28 Crea (more content not included)...NormalGuernsey Memorial HospitalComprehensive metabolic 2000 panelOrdered By: Ben Vargas on 96-45-5389Snwrybg [Mass/Vol]3.9 g/dL3.9 - 4.9 g/dLPlymouth ClinicALP [Catalytic activity/Vol]88 U/L34 - 123 U/L [facility] ClinicALT [Catalytic activity/Vol]7 U/L7 - 38 U/LCleveland ClinicAnion gap [Moles/Vol]13 mmol/L8 - 15 mmol/LCleveland ClinicAST [Catalytic activity/Vol]11 U/LLow13 - 35 U/LCleveland ClinicBilirubin [Mass/Vol]0.3 mg/dL 0.2 - 1.3 mg/dLCleveland ClinicCalcium [Mass/Vol]9.7 mg/dL8.5 - 10.2 mg/dL [facility]brahim ClinicChloride [Moles/Vol]99 mmol/L98 - 107 mmol/LCleveland ClinicCO2 [Moles/Vol]29 mmol/L22 - 30 mmol/LCleveland ClinicCreatinine [Mass/Vol]1.49 mg/dLHigh0.58 - 0.96 mg/dLCleveland ClinicGFR/1.73 sq M.predicted among non- blacks MDRD [...] eGFRmay not accurately reflect actual GFR.Glucose [Mass/Vol]122 mg/xXFiqg91 - 99 mg/dLPlymouth ClinicComment on above:The [place] Diabetes Association (ADA) provides guidance for cutoff [...] Standards of Medical Care in Diabetes 2016, [place] [employer] Association. Diabetes Care. 2016.39(Suppl 1). Interpretation and review of laboratory resultsAbnormalCleveland ClinicPotassium [Moles/Vol]3.4 mmol/LLow3.7 - 5.1 mmol/LCleveland ClinicProtein [Mass/Vol]6.9 g/dL6.3 - 8.0 g/dLCleveland ClinicSodium [Moles/Vol]141 mmol/L136 - 144 mmol/L [facility] nitrogen [Mass/Vol]19 mg/dL7 - 21 mg/dLMetroHealth Main Campus Medical Centerprehensive metabolic 2000 panelon 15-22-9800Mvtbtrp [Mass/Vol]3.9 g/dLNormal3.9-4.9COhioHealth Grant Medical Center on above:Order Comment: Specimen Type: BLOOD SPECIMEN Ordering Facility: [facility] Address: [address] [place], [place] [address]Performed By: #### 43777-8 #### [facility] CLIA [id number] [address] [place], [place] [address]QSP [Catalytic activity/Vol]88 U/SEtelfh01-937InirdlmfdWestern Reserve Hospital on above:Order Comment: Specimen Type: BLOOD SPECIMEN Ordering Facility: [facility] Address: [address] [place], [place] [address]Performed By: #### 81697-5 #### [facility] CLIA [id number] [address] [place], [place] [address]XOC [Catalytic activity/Vol]7 U/LNormal7-38[facility] on above:Order Comment: Specimen Type: BLOOD SPECIMEN Ordering Facility: [facility] Address: [address] [place], [place] [address]Performed By: #### 29775-0 #### [facility] CLIA [id number] [address] [place], [place] [address]Jgfoe gap [Moles/Vol]13 mmol/LNormal8-15[facility] on above:Order Comment: Specimen Type: BLOOD SPECIMEN Ordering Facility: [facility] Address: [address] [place], [place] [address]Performed By: #### 90445-2 #### [facility] CLIA [id number] [address] [place], [place] [address]KEO [Catalytic activity/Vol]11 U/DTyg10-92GgmgitvubWestern Reserve Hospital on above:Order Comment: Specimen Type: BLOOD SPECIMEN Ordering Facility: [facility] Address: [address] [place], [place] [address]Performed By: #### 70620-5 #### [facility] CLIA [id number] [address] [place], [place] [address]Lkwwhrtyj [Mass/Vol]0.3 mg/dLNormal0.2-1.3CSelect Medical Specialty Hospital - YoungstownCommunising memorial hospital on above:Order Comment: Specimen Type: BLOOD SPECIMEN Ordering Facility: [facility] Address: [address] [place], [place] [address]Performed By: #### 55793-4 #### [facility] CLIA [id number] [address] [place], [place] [address]Ykzltub [Mass/Vol]9.7 mg/dLNormal8.5-10.2CSelect Medical Specialty Hospital - YoungstownComment on above:Order Comment: Specimen Type: BLOOD SPECIMEN Ordering Facility: [facility] Address: [address] [place], [place] [address]Performed By: #### 11642-9 #### [facility] CLIA [id number] [address] [place] [address]Gxnjbgcg [Moles/Vol]99 mmol/QImgnuc03-805SdbzwifmaGuernsey Memorial HospitalComment on above:Order Comment: Specimen Type: BLOOD SPECIMEN Ordering Facility: [facility] Address: [address] [place], [place] [address]Performed By: #### 03570-8 #### [facility] CLIA [id number] [address] [place], [place] [address]CW4 [Moles/Vol]29 mmol/WMhtcgf37-21HfkressimGuernsey Memorial Hospital Comment on above:Order Comment: Specimen Type: BLOOD SPECIMEN Ordering Facility: [facility] Address: [address] [place], [place] [address]Performed By: #### 82572-8 #### [facility] CLIA [id number] [address] [place], [place] [address]Yiwctupuuh [Mass/Vol]1.49 mg/dLHigh0.58-0.96Green Cross Hospitalment on above:Order Comment: Specimen Type: BLOOD SPECIMEN Ordering Facility: [facility] Address: [address] [place] [address]Wgidwvtpf By: #### 80659-6 #### [facility] CLIA [id number] [address] [place] [address]Rovhjtmdbb and Glomerular filtration rate.predicted panel (S/P/Bld)35 mL/min/1.73m???Low>=60[facility] on above: Order Comment: Specimen Type: BLOOD SPECIMEN Ordering Facility: [facility] Address: [address] [place] [address]Hbyktj Comment: Estimated Glomerular Filtration Rate (eGFR) is [...] not accurately reflect actual GFR.Performed By: #### 66269-8 #### [facility] CLIA [id number] [address] [place] [address]Pdqjhix [Mass/Vol]122 mg/cJUhww12-37VucvbpfirGuernsey Memorial Hospital Comment on above:Order Comment: Specimen Type: BLOOD SPECIMEN Ordering Facility: [facility] Address: [address] [place] [address]Izsagn Comment: The [place] Diabetes Association (ADA) provides guidance for cutoff [...] Standards of Medical Care in Diabetes 2016, [place] Diabetes Association. Diabetes Care. 2016.39(Suppl 1).Performed By: #### 94522-6 #### [facility] CLIA [id number] [address] [place], [place] [address]Hbjtcdzob [Moles/Vol]3.4 mmol/LLow3.7-5.1COhioHealth Grant Medical Center on above:Order Comment: Specimen Type: BLOOD SPECIMEN Ordering Facility: [facility] Address: [address] [place], [place] [address]Performed By: #### 63944-1 #### [facility] CLIA [id number] [address] [place] [address]Yvtjzfv [Mass/Vol]6.9 g/dLNormal6.3-8.0[facility] on above:Order Comment: Specimen Type: BLOOD SPECIMEN Ordering Facility: [facility] Address: [address] [place], [place] [address]Performed By: #### 50152-6 #### [facility] CLIA [id number] [address] [place] [address] 04[address]Tgxetl [Moles/Vol]141 mmol/YKbccer610-127XmqycjgedWestern Reserve Hospital on above:Order Comment: Specimen Type: BLOOD SPECIMEN Ordering Facility: [facility] Address: [address] [place], [place] [address]Performed By: #### 73683-3 #### [facility] CLIA [id number] [address] [place] [address]98[address]Ofnk nitrogen [Mass/Vol]19 mg/dLNormal7-21[facility] on above:Order Comment: Specimen Type: BLOOD SPECIMEN Ordering Facility: [facility] Address: [address] [place], [place] [address]Performed By: #### 50696-0 #### [facility] CLIA [id number] [address] [place] [address] 19[address]Gotfghwh [facility] 99-44-6136Uivamgtm [Mass/Vol]143.0 ng/mL Apeerv99.7-205.1COhioHealth Grant Medical Center on above:Order Comment: Specimen Type: BLOOD SPECIMEN Ordering Facility: [facility] Address: [address] [place], [place] [address]Performed By: #### 2132-9, 2276-4, 34376-5, 2283-8 #### [facility] CLIA [id number] [address] [place] [address] [place] OF AMERICAFolate SerPl-mCncon 65-47-7399Azxuis [Mass/Vol]10.2 ng/mLNormal>4.7COhioHealth Grant Medical Center on above:Order Comment: Specimen Type: BLOOD SPECIMEN Ordering Facility: [facility] Address: [address] [place], [place] [address]Performed By: #### 2132-9, 2276-4, 50040-6, 2283-8 #### [facility] CLIA [id number] [address] [place] [address] ELIZABETH HOSPITALIron and Iron binding capacity panelon 60-46-0364Fhvr [Mass/Vol]48 ug/wMExaqis96-193ZktylarbvWestern Reserve Hospital on above:Order Comment: Specimen Type: BLOOD SPECIMEN Ordering Facility: [facility] Address: [address] [place], [place] [address]Performed By: #### 2132-9, 6-4, 29577-3, 2283-8 #### [facility] CLIA [id number] [address] [place] [address] STATES [facility] K[facility] CANCER CENTERIron binding capacity [Mass/Vol]237 ug/qPHuirvh394-115LjbpbigmsWestern Reserve Hospital on above:Order Comment: Specimen Type: BLOOD SPECIMEN Ordering Facility: [facility] Address: [address] [place], [place] [address]Performed By: #### 2132-9, 6-4, 81255-1, 2283-8 #### [facility] CLIA [id number] [address] [place] [address] AMERICAIron/TIBC [Molar ratio]20.3 %Fjhnwx59.0-57.0[facility] on above:Order Comment: Specimen Type: BLOOD SPECIMEN Ordering Facility: [facility] Address: [address] [place], [place] [address]Performed By: #### 2132-9, 2276-4, 08702-9, 2284-8 #### [facility] CLIA [id number] [address] [place], [place] [address]Vit B12 SerPl-[facility] 60-16-7841Nbfppyfin (Vitamin B12) [Mass/Vol]214 pg/hPTad883-7010TbylquanxOhioHealth Grant Medical Center on above:Order Comment: Specimen Type: BLOOD SPECIMEN Ordering Facility: [facility] Address: [address] [place], [place] [address]Performed By: #### 2132-9, 2276-4, 83270-3, 228-8 #### [facility] CLIA [id number] [address] [place] [address] STATES OF AMERICACNPNon [id number] Telephone (INDIA) HARMAN MCLEOD ([id number]) 1940 F Date Time Provider Department 10/04/24 MAYLIN SANDOVAL During your visit today, we recorded the following information about you: Maylin Sandoval, ELADIO 10/04/2024 12:08 PM Signed Patient granddaughter/caregiver Misti Graffming has called in regards to a message the patient received stating that she was scheduled for labs in oct this year in order to refill her anastrozole. There are no appt scheduled or notations made in this regard and patient has checked with PCP. Patient sees Dr Stone and was updated that he practices out of the [facility] location. I made her aware that I will send a message and she is to expect a call. Patient and daughter agree with plan and appreciate the time. Maylin Sandoval, RN Evita Deshpande RN 10/04/2024 12:51 PM Signed Per 06/20/23 [facility] oncology: pt is to return in about 4 months (around 10/21/2023) for MD miquel visit. 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 Cut in half - Cvaxr-2-CZF-EPA-Fish Oil 1,000 mg (120 mg-180 mg) cap [...] [E03.9] 01/16/2017 Dyslipidemia [E78.5] 01/16/2017 Atherosclerosis of [place] coronary artery of na*01/16/2017 S/P coronary artery stent placement [Z (more content not included)...[id number] Harman Mcleod 1940 Provider Department Center 09/24/2024 BRIAN FLANNERY [facility] Family History Problem Relation Age of Onset Stroke Mother Coronary artery disease Father Heart attack Father Family Status - Relation Status Age at Mother Father Level of Service:99638 CT OFFICE/OUTPATIENT ESTABLISHED LOW MDM 20 MINNoMer[facility] [id number] Harman Mcleod 1940 Provider Department Center 09/12/2024 BRIAN FLANNERY [facility] CARD [facility] Family History Problem Relation Age of Onset Stroke Mother Coronary artery disease Father Heart attack Father Family Status - Relation Status Age at Mother Father Level of Service:31800 CT OFFICE/OUTPATIENT ESTABLISHED LOW MDM 20 MIN Reason for Visit and Comments: Follow-up [083261] - Wound checkNormalUniversOhioHealth [facility] HospitalOffice Visiton [id number] Harman Mcleod 1940 Provider Department Center 09/02/2024 BRIAN FLANNERY [facility] C[facility] HeartVAS Family History Problem Relation Age of Onset Stroke Mother Coronary artery disease Father Heart attack Father Family Status - Relation Status Age at Mother Father Level of Service:38184 CT OFFICE/OUTPATIENT ESTABLISHED SF MDM 10 MINNormal [facility] CenterOffice Visiton 58-00-9199Zczpdt-up visit [id number] Harman Mcleod 1940 F Date Provider Department Center 08/27/2024 BRIAN FLANNERY [facility] Family History Problem Relation Age of Onset Stroke Mother Coronary artery disease Father Heart attack Father Family Status - Relation Status Age at Mother Father Level of Service:95003 CT OFFICE/OUTPATIENT ESTABLISHED LOW MDM 20 [facility]HP[facility] 00-07-6348KYMF Electrophysiology Consult Note [place] Cardiology [facility] Reason for visit: Afib 08/12/24 Pt had HISTORIC PRESERVATIONIST on 07/10/24 and now presents for AVN [...] in A-fib. She was just discharged from [facility] for GI bleed. Eliquis and aspirin [...] disease) Cancer (CMS/HCC) CHF (congestive heart failure) ([facility]) Chronic kidney disease COPD (chronic obstructive pulmonary disease) ([facility]) Diabetes mellitus ([facility]) GI bleed Heart murmur Hyperlipidemia Hypertension PVD (peripheral vascular disease) ([facility]) PSH: Past Surgical History: Procedure Laterality Date CARDIAC CATHETERIZATION 12/15/2011, 08/23/2010, 12/30/2004, CORONARY STENT PLACEMENT HYSTERECTOMY 03/11/2005 VASCULAR SURGERY SH: Social Determinants of Health Tobacco Use: Medium Risk (06/20/2024) [facility] Patient History Smoking Tobacco Use: Former Smokeless Tobacco Use: Never Passive Exposure: Not on file Alcohol Use: Not on file Financial Resource Strain: Not on file Food Insecurity: Not on file Transportation Needs: Not on file Physical Activity: Not on file Stress: Not on file Social Connections: Not on file Intimate Partner Violence: Unknown (11/02/2023) [place] Safety & Environment Fear of Current or Ex-Partner: Not on file Emotionally Abused: Not on file Physically Abused: Not on file Sexually Abused: Not on file Physically or Sexually Abused: Not on file Depression: Not at risk (02/14/2023) Received from [facility] PHQ-2 PHQ-2 score: 0 [...] mouth two times daily. fish oil concentrate ([place]ared[place]-3) 120-180 mg capsule Take 1,000 mg by [...] mcg by mouth in (more content not included)...[facility] HospitalNURSNOTEon 08-12-2024 NURSNOTERN educated pt on d/c instructions. [...] wheeled off of unit with all of belongings.NormalLakeHealth Beachwood Medical CenterConsultation Noteon 53-65-0500Liwzpbtnwhlk Note [id number]#1.00TIFFNormalFisher Saint Luke InstituteVaginitis DNA Probeon 45-16-4870ArjbnzaBcepgnuhEyjzoyYFDEpoxh St. Vincent Medical CenterComment on above:Result Comment: for Manjula sp. Method of testing is a DNA probe intended for detection and identification of Manjula species, Gardnerella vaginalis, and Trichomonas vaginalis nucleic acid in vaginal fluid specimens from patients with symptoms of vaginitis/vaginosis. Performed By: #### VAGP #### [address] [id number] Flow Match Sofa Cutter: Estephanie SmithllaNegativeNormalBrown Memorial HospitalComment on above:Result Comment: for Gardnerella vaginalis Performed By: #### VAGP #### [address] [address] Flow Match Sofa Cutter: Sanaz SmithhomonasNegativeUniversity Hospitals Portage Medical CenterComment on above:Result Comment: for Trichomonas Vaginalis Performed By: #### VAGP #### [facility] [employer]Lounge [address] [place] [address] Flow Match Sofa Cutter: Shaheen Smith.VAGINAL SWABEast Liverpool City HospitalComment on above:Performed By: #### VAGP #### [address] [id number] Flow Match Sofa Cutter: Fidel Hylton MDOPERATIVE REPORTon 73-01-5465TKPLJTPXD REPORT [address] [id number] OPERATIVE REPORT PATIENT NAME: HARMAN MCLEOD : 1940 MED REC NO: [id number] ROOM: ACCOUNT NO: [id number] ADMIT DATE: 03/06/2023 PROVIDER: Emma Garza MD DATE OF PROCEDURE: 03/06/2023 PREOPERATIVE DIAGNOSIS: Recurrent vaginal dysplasia. POSTOPERATIVE DIAGNOSIS: Recurrent vaginal dysplasia. OPERATION PERFORMED: Examination under anesthesia, carbon dioxide laser vaporization of vaginal dysplasia. COMPLICATIONS: None. BLOOD LOSS: Minimal. SURGEON: Emma Garza MD SHIP YARD ELECTRICAL PERSON: Mauri (resident). DISPOSITION: The patient to recovery room stable. SPECIMENS: No specimen sent to Pathology. OPERATIVE FINDINGS: The patient had a small 1-2 cm area of vhaabnbl-vc-cazpzt dysplasia along the anterior vagina from 12 [...] for the entire procedure. EMMA GARZA MD CL/S_[email or web address]_[id number] Doc#: [id number] CC:NormalGlenbeigh HospitalConsultation Noteon 02-19-2023 Consultation [id number]#1.00CD:127[facility] HospitalConsultation Noteon 18-19-1682Awdhippfpsdq Note [id number]#1.00CD:127[facility] HospitalComment on above:Other Comment: MISSING PAGES CRRCULTURE URINEon 34-49-7487SXNRXSX URINECulture Observations: VERY LIGHT GROWTH OF MIXED GENITAL SAGE. NO POTENTIAL PATHOGENS SEEN.NormalCleveland Clinic Avon HospitalComment on above:Performed By: #### URCX ####[facility] [address] [place], [place] [address]ZpMedardo Omid Mir RANDOM W/MICROSCOPICon 59-50-3884JVWSENVEQRDNDEbvhbizuICWO SEENThe [facility] Comment on above:Performed By: #### HGB #### [facility] Laboratory [address] [address] [address] Omid BowdenBilirubin Ql (U)NegativeNormalNEGATIVECleveland Clinic Avon Hospital Comment on above:Performed By: #### HGB #### [facility] [address] [address] [address] Omid BowdenCASTNONE SEENNormalNONE SEENCleveland Clinic Avon HospitalComment on above:Performed By: #### HGB #### [facility] [address] [address] [address] Omid Sheaarity (U)CLEARNormalCLEARCleveland Clinic Avon HospitalComment on above: Performed By: #### HGB #### [facility] [address] [place] [address] Dr. Omid Serranolor (U)LT. YELLOWNormalYELLOWCleveland Clinic Avon HospitalComment on above:Performed By: #### HGB #### [facility] [address] [place] [address] Dr. Omid BowdenCrystals LM Nom (Urine sed)NONE SEENNormalNONE SEENCleveland Clinic Avon HospitalComment on above:Performed By: #### HGB #### [facility] [address] [place] [address] Dr. Anne ChangEpithelial cells LM Ql (Urine sed)RARENormalNONE SEEN /RARECleveland Clinic Avon HospitalComment on above:Performed By: #### HGB #### [facility] [address] [place] [address] Dr. Omid BowdenGlucose Ql (U)NegativeNormalNEGATIVECleveland Clinic Avon HospitalComment on above:Performed By: #### HGB #### [facility] [address] [address] [address] Omid BowdenHemoglobin Ql (U)NegativeNormalNEGATIVECleveland Clinic Avon Hospital Comment on above:Performed By: #### HGB #### [facility] [address] [place] [address] Dr. Omid BowdenKetones Ql (U)NegativeNormalNEGATIVECleveland Clinic Avon HospitalComment on above:Performed By: #### HGB #### [facility] [address] [address] [address] Omid BowdenLEUKOCYTESSMALLAbnormalNEGATIVEThe [facility] HospitalComment on above:Performed By: #### HGB #### [facility] [address] [place] [address] Dr. Omid BowdenMUCOUSDARIEN SEENNormalNONE SEENCleveland Clinic Avon HospitalComment on above:Performed By: #### HGB #### [facility] [address] [place] [address] Dr. Omid BowdenNitrite Ql (U)NegativeNormalNEGATIVEThe [facility] HospitalComment on above:Performed By: #### HGB #### [facility] [address] [place] [address] Dr. Omid BowdenpH (U)6.0 [pH]Normal5-9The [facility] HospitalComment on above: Performed By: #### HGB #### [facility] [address] [place] [address] Dr. Omid BowdenDrfjmIMP7-0Wlzhiq0-4Nnv [facility] HospitalComment on above:Performed By: #### HGB #### [facility] [address] [place] [address] Dr. Omid BowdenSPEC GRAVITY<=1.450Leqznutq2.005-<=1.025[facility] Comment on above:Performed By: #### HGB #### [facility] [address] [place] [address] Dr. Omid Mir PROTEINNegativeNormalNEGATIVE/ TRACEThe [facility] Comment on above:Performed By: #### HGB #### [facility] [address] [place] [address] Dr. Omid Daybilinogen Qn (U)0.2 {Jose'U}/dLNormal0.2 - 1.0The [facility] HospitalComment on above:Performed By: #### HGB #### [facility] [address] [place] [address] Dr. Omid BowdenWBC0-2AbnormalNONE Brown Memorial HospitalComment on above: Performed By: #### HGB #### [facility] [address] [place], [place] [address] Dr. Omid BowdenCreatinine [Mass/volume] in Serum or PlasmaOrdered By: Christiano Gonzales on 80-78-0958Qffeahskkd [Mass/Vol]1.37 mg/dL0.60-1.20[facility] CenterLaboratory - Chemistry and Chemistry - challengeOrdered By: Christiano Gonzales on 95-08-1411YKJ/1.73 sq M.predicted MDRD (S/P/Bld) [Vol rate/Area]39.034 mL/min/{1.73_m2}[facility] Medical CenterNo Panel InformationOrdered By: Christiano Gonzales on 99-59-4638Fxlttpzq Creatinine Clearance (Chem31.71[facility] Medical CenterUrea nitrogen [Mass/volume] in Serum or PlasmaOrdered By: Christiano Gonzales on 06-04-1147Hncq nitrogen [Mass/Vol]35 mg/dL7-25Southview Medical Centerurgical Pathologyon 03-63-9420Nqrfrrbx Pathology(NOTE) -- Diagnosis -- VAGINA, 12:00, BIOPSY: [...] CONSULTATION Patient Name: HARMAN MCLEOD [facility] Rec: [id number] Path Number: [id number] [employer] CONSULTING PATHOLOGISTS [employer] ANATOMIC PATHOLOGY [address] [place] [phone] NoSumma Health Barberton CampusComment on above: Performed By: #### PPPVS #### [employer] [address] [place] [address] Flow Match Sofa Cutter: Fidel Hylton [facility] Hospitalulatory Visit Summaryon 75-92-6619Hlkpgqkexu Visit Summary HARMAN MCLEOD :1940 Visit Date:11/22/2022 [...] and diastolic (congestive) heart failure 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 BMI 36.0-36.9,adult Brain stem [...] Rectal bleeding Stage 2 chronic kidney disease [facility] Surgery Office/Clinic Noteon 22-84-9270Cokrghb Surgery Office/Clinic NoteChief Complaint post operative follow [...] Jose Only if needed [address] [place] [address]- Additional Instructions: Problem List/Past Medical History Ongoing 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 BMI 36.0-36.9,adult Brain stem [...] Cigarettes, 0.5 per d (more content not included)...[facility] HospitalComment on above:Result Comment: Electronically Signed By: CHELSI CARDONA, Iliana Alvarez\Date and Time Signed: 11/22/22 15:17 EDTCovid-19 PCR ([facility]) on 49-55-0001FUHQ-CoV-2 (COVID-19) RNA MARII+probe Ql (Unsp spec)Not detected NormalNOT DETECTEDThe [facility] HospitalComment on above:Result Comment: When diagnostic testing is [...] for this test is supported by the [place] of Health and Human Service's declaration that [...] longer be used).Performed By: #### HGB #### [facility] [address] [address] [address] Omid Nair AND B AGon 28-35-0720RFTBGWBOYCIXZProtestant Hospitalment on above:Result Comment: Negative for Flu A protein angiten. Infection due to Flu A cannot be ruled out. FluA angiten in the sample may be below the detection limit of the test.Performed By: #### INFLUAB ####[facility] [address] [address]Dr. Omid BowdenINFLUBNEGHSEE [facility] Valley Medical CenterComment on above:Result Comment: Negative for Flu B protein antigen. Infection due to Flu B cannot be ruled out. FluB antigen in the sample may be below the detection limit of the test.Performed By: #### INFLUAB ####[facility] [address] [address]Dr. Omid Rodarte A AGNegativeNormalNEGATIVE SEE COMMENTThe [facility] HospitalComment on above:Performed By: #### INFLUAB ####[facility] [address] [place], [place] [address]Dr. Omid Rodarte B AGNegativeNormalNEGATIVE SEE COMMENTThe [facility] Comment on above:Performed By: #### INFLUAB ####[facility] [address] [place], [place] [address]Dr. 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 BMI 36.0-36.9,adult Brain stem [...] 09/09/2022 Family History Tran (more content not included)...[facility] HospitalComment on above:Result Comment: Electronically Signed By: CHELSI CARDONA, Iliana Ramirez\.br\Date and Time Signed: 11/08/22 14:22 ESTAmbulatory Visit Summaryon 60-14-8407Mmcelpirld Visit Summary HARMAN MCLEOD :1940 Visit Date:11/04/2022 [...] CARDONA, Iliana Ramirez Where: General Surgery [facility] General Surgery Office/Clinic Noteon 66-84-2097Dxlyezr Surgery Office/Clinic NoteChief Complaint bleeding from incision [...] and diastolic (congestive) heart failure 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 BMI 36.0-36.9,adult Brain stem [...] Years., 09/09/2022 Family Histor (more content not included)...[facility] Comment on above:Result Comment: Electronically Signed By: CHELSI CARDONA, Iliana Castillo.veto\Date and Time Signed: 11/04/22 14:35 ESTUS HARRIET DOP LEG BILon 39-04-7464FJ HARRIET DOP LEG BILEXAM: US HARRIET DOP [...] Electronically authenticated by: MIGUELITO TELLEZ Date: 2022-11-02 17:17[facility] DaytonPathology Noteon 16-03-6449Wnjoyswtt Note [id number]#1.00CD:127[facility] HospitalAmbulatory Visit Summaryon 30-27-3368Aatdkkipyo Visit Summary HARMAN MCLEOD :1940 Visit Date:10/25/2022 [...] With: Iliana GAGNON MD Where: General Surgery Nilnikolai[facility] General Surgery Office/Clinic Noteon 98-71-5077Ujmimpu Surgery Office/Clinic NoteChief Complaint post operative follow [...] and diastolic (congestive) heart failure 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 Heart disease: Mo (more content not included)...[facility] HospitalComment on above:Result Comment: Electronically Signed By: CHELSI CARDONA, Iliana Alvarez\Date and Time Signed: 10/25/22 16:13 ESTOperative Reporton 37-19-4454Wozidkpxw [id number]#1.00CD:127 [facility] HospitalRAD - Ultrasound Reporton 84-20-4035VLR - Ultrasound [id number]#1.00CD:127[facility] HospitalNM SENTNL NODEon 47-53-9783TE SENTNL NODEUNIVERSITY [facility] MEDICINE LYMPHOSCINTIGRAPHY. HISTORY: Infiltrating duct carcinoma of [...] Electronically authenticated by: KRISTIN JAQUEZ Date: 2022-10-19 10:41[facility] GLUCOSEon 60-43-8704Isqikcc [Mass/Vol]153 mg/dL Critically hdzu44-515Mmi [facility] HospitalComment on above:Performed By: #### POCGLUC #### [facility] Laboratory [address] [place] [address] Dr. Omid BwodenRAD - MISCon 33-78-8793PDH - MISC [id number]#1.00CD:127[facility] HospitalRAD - [id number]#1.00CD:127[facility] HospitalRAD - Ultrasound Reporton 29-28-3749YRP - Ultrasound Report [id number]#1.00CD:[address] [place], [place] [address]RAD - Ultrasound [id number]#1.00CD:127 [facility] HospitalUS BREAST SPECIMENon 23-50-3636QW BREAST SPECIMENPatient: HARMAN MCLEOD Exam Date: 10/19/2022 : 1940 Gender:F Ordering : DR ILIANA GAGNON . Admission #: [id number] Family : Order #: [id number] CLICK HERE TO VIEW EXAM RADIOLOGY REPORT PROCEDURE: US BREAST SPECIMEN COMPARISON: None. INDICATIONS: Specimen from breast FINDINGS: Breast specimen demonstrates inclusion of the targeted mass as well as the micro clip marker CONCLUSION: Targeted mass and micro clip marker included within the specimen Dictated by: Judson Bauman MD on 10/19/2022 at 11:46 Approved by: Judson Bauman MD on 10/19/2022 at 11:47[facility] DaytonUS GUIDE LOCAL BREAST RTon 09-46-1954DM GUIDE LOCAL BREAST RTPatient: HARMAN MCLEOD Exam Date: 10/19/2022 : 1940 Gender:F Ordering : DR ILIANA GAGNON . Admission #: [id number] Family : Order #: [id number] CLICK HERE TO VIEW EXAM RADIOLOGY REPORT [...] clip marker LOCATION: Right breast 9 NEEDLE: Audio Shacksandeeps spring hook; 20 g by 5 cm needle and wire. MEDICATION: 6 cubic cm Superficial and deep buffered 1% lidocaine. COMPLICATIONS: None. CONCLUSION: Technically successful hookwire localization. Dictated by: Judson Bauman MD on 10/19/2022 at 09:04 Approved by: Judson Bauman MD on 10/19/2022 at 09:05[facility] SENTINEL NODEon 28-31-5710JL SENTINEL NODEEXAM: US SENTINEL NODE HISTORY: Infiltrating duct carcinoma COMPARISON: None. TECHNIQUE: Grayscale and color ultrasound FINDINGS: Grayscale and color ultrasound demonstrates a 1.6 x 0.8 cm lobular heterogeneous hypoechogenic mass at the 9:00 position. Associated microclip marker from prior biopsy IMPRESSION: Localization of a 1.6 cm right breast mass Electronically authenticated by: JUDSON BAUMAN Date: 2022-10-19 08:59NoMarietta Memorial HospitalRAD - MISCon 13-52-3007AFG - [facility] [id number]#1.00CD:127[facility] AUTO DIFFon 01-32-8159MHAN #0.0 103/ulNormal0.0-0.1[facility] HospitalComment on above:Performed By: #### HGB #### [facility] [address] [place] [address] Dr. Omid Gonzalezphils/100 WBC (Bld)0.2 %Normal0.2-2.0[facility] Comment on above:Performed By: #### HGB #### [facility] [address] [place] [address] Dr. Omid Maldonado #0.0 103/ulNormal0.0-0.7The [facility] HospitalComment on above: Performed By: #### HGB #### [facility] [address] [place] [address] Dr. Omid Batesosinophils/100 WBC (Bld)0.3 %Critically low0.9-7.0The [facility] HospitalComment on above:Performed By: #### HGB #### [facility] [address] [place] [address] Dr. Omid Batesrythrocyte distribution width (RBC) [Ratio]13.7 %Ylhctr45.0-15.0 The [facility] HospitalComment on above:Performed By: #### HGB #### [facility] [address] [place] [address] Dr. Omid BowdenHematocrit (Bld) [Volume fraction]39.6 %Retdkm83.0-48.0The [facility] HospitalComment on above:Performed By: #### HGB #### [facility] [address] [place] [address] Dr. Omid BowdenHemoglobin (Bld) [Mass/Vol]12.3 g/aDKsiyeg67.0-16.0The [facility] HospitalComment on above:Performed By: #### HGB #### [facility] [address] [place] [address] Dr. Omid Aceves #0.06 10e3/ulCritically high0.00-0.03The [facility] Comment on above:Performed By: #### HGB #### [facility] [address] [place] [address] Dr. Omid BowdenIG %0.5 %Normal0.0-0.5The [facility] HospitalComment on above: Performed By: #### HGB #### [facility] [address] [place] [address] Dr. Omid WangMPH #2.9 103/ulNormal1.2-3.8The [facility] HospitalComment on above:Performed By: #### HGB #### [facility] [address] [place] [address] Dr. Omid Wangmphocytes/100 WBC (Bld)26.2 %Izwerv12.5-60.0The [facility] HospitalComment on above:Performed By: #### HGB #### [facility] [address] [place] [address] Dr. Omid Ogden DIFF REQNONormalThe [facility] HospitalComment on above: Performed By: #### HGB #### [facility] [address] [place] [address] Dr. Omid Hodgson (RBC) [Entitic mass]28.3 efFzerzw46.7-34.0The [facility] HospitalComment on above:Performed By: #### HGB #### [facility] [address] [place] [address] Dr. Omid Hodgson (RBC) [Mass/Vol]31.1 g/aEDjsfpu68.9-35.2The [facility] HospitalComment on above:Performed By: #### HGB #### [facility] [address] [place] [address] Dr. Omid Hodgson (RBC) [Entitic vol]91.2 rRNyjame01.0-99.0The [facility] HospitalComment on above:Performed By: #### HGB #### [facility] [address] [place] [address] Dr. Omid Kaur #0.9 103/ulCritically high0.3-0.8ThMercy Health Perrysburg Hospital Comment on above:Performed By: #### HGB #### [facility] [address] [place] [address] Dr. Omid Marquezocytes/100 WBC (Bld)8.3 %Normal1.7-12.0[facility] Comment on above:Performed By: #### HGB #### [facility] [address] [place] [address] Dr. Omid Moreno #7.0 103/ulCritically high1.4-6.5ThMercy Health Perrysburg Hospital Comment on above:Performed By: #### HGB #### [facility] [address] [place] [address] Dr. Omid Rizzoutrophils/100 WBC (Bld)64.5 %Ojuctb89.0-75.0The [facility] HospitalComment on above:Performed By: #### HGB #### [facility] [address] [address] [address] Omid Mcdonaldlet mean volume (Bld) [Entitic vol]9.2 fLCritically low 9.5-13.5The [facility] HospitalComment on above:Performed By: #### HGB #### [facility] [address] [place] [address] Dr. Omid BowdenPLT346 103/miJmdbdy919-020Tix [facility] HospitalComment on above: Performed By: #### HGB #### [facility] [address] [place] [address] Dr. Omid BowdenRBC4.34 106/ulNormal4.20-5.40The [facility] HospitalComment on above:Performed By: #### HGB #### [facility] [address] [place] [address] Dr. Omid BowdenWBC10.9 103/ulNormal4.0-11.0The [facility] HospitalComment on above:Performed By: #### HGB #### [facility] [address] [place] [address] Dr. Omid BowdenPROF CHEM 8 (BAS METB)on 33-86-4634Qkovr gap [Moles/Vol]11.0 mmol/LNormalThe [facility] HospitalComment on above:Performed By: #### LIPID, BMP #### [facility] [address] [place] [address] Dr. Omid BowdenCalcium [Mass/Vol]9.6 mg/dLNormal8.5-10.1The [facility] Comment on above:Performed By: #### LIPID, BMP #### [facility] [address] [place] [address] Dr. Omid BowdenChloride [Moles/Vol]99 mmol/UVvwukh76-426GwiCleveland Clinic Avon Hospital Comment on above:Performed By: #### LIPID, BMP #### [facility] [address] [place] [address] Dr. Omid BowdenCO2 [Moles/Vol]32.0 mmol/FZsrnda54.0-32.0The [facility] Comment on above:Performed By: #### LIPID, BMP #### [facility] [address] [place] [address] Dr. Omid BowdenCreatinine [Mass/Vol]1.03 mg/dLCritically high0.55-1.02The [facility] HospitalComment on above:Performed By: #### LIPID, BMP #### [facility] [address] [address] [address] Omid BatesGFR-AF BOTSWANAN>60Normal>=60The [facility] HospitalComment on above:Performed By: #### LIPID, BMP #### [facility] [address] [place] [address] Dr. Omid BatesGFR-NON AF MKCSQUPC75 mL/min/1.70i8Ztpmzudycz low>=60The [facility] HospitalComment on above:Performed By: #### LIPID, BMP #### [facility] [address] [place] [address] Dr. Omid BowdenGlucose [Mass/Vol]94 mg/wNUqtohs35-568CxkCleveland Clinic [facility]on Hospital Comment on above:Performed By: #### LIPID, BMP #### [facility] [address] [place] [address] Dr. Omid BowdenPotassium [Moles/Vol]4.0 mmol/LNormal3.5-5.1The [facility] Comment on above:Performed By: #### LIPID, BMP #### [facility] [address] [place] [address] Dr. Omid BowdenSodium [Moles/Vol]138 mmol/XYjxfjj749-666Cxi [facility] Comment on above:Performed By: #### LIPID, BMP #### [facility] [address] [place] [address] Dr. Omid BowdenUrea nitrogen [Mass/Vol]28.0 mg/dLCritically high7.0-18.0The [facility] HospitalComment on above:Performed By: #### LIPID, BMP #### [facility] [address] [place] [address] Dr. Omid BowdenUrea nitrogen/Creatinine [Mass ratio]27.2 mg/mgNoMarietta Memorial HospitalComment on above:Performed By: #### LIPID, BMP #### [facility] [address] [place] [address] Dr. Omid BowdenPROTIMEon 87-15-4905AEG Coag (PPP) [Relative time]0.99 {INR} NormalThe [facility] HospitalComment on above:Performed By: #### HGB #### [facility] [address] [place] [address] Dr. Omid Damon GUIDELINESSEE BELOWAccess Hospital DaytonComment on above:Result Comment: DESIRED INR: 2.0 - 3.0 CONDITIONS NOT LISTED BELOW 2.5 - 3.5 FOR PROSTHETIC HEART VALVE REPLACEMENT 2.5 - 3.5 RECURRENT THROMBOSIS Performed By: #### HGB #### [facility] [address] [place] [address] Dr. Omid BowdenPT Coag (PPP) [Time]10.5 sNormal9.0-11.6ThMercy Health Perrysburg Hospital Comment on above:Performed By: #### HGB #### [facility] [address] [place] [address] Dr. Omid Vera 48-83-7206aDCJ Coag (Bld) [Time]28.6 fHpypsq09.3-36.2[facility] Clinic [facility] HospitalComment on above:Performed By: #### HGB #### [facility] [address] [place] [address] Dr. Omid BowdenConsultation Noteon 54-52-6401Bszfyxulluqj Note [id number]#1.00CD:127[facility] HospitalINSULINon 35-78-9811Ctlhvgo69.8 uIU/mLNormal2.6-24.9[facility] Comment on above:Performed By: #### LIPID, BMP #### [facility] [address] [place] [address] Dr. Omid BowdenGLYCOHEMOGLOBIN A1Con 61-36-4313NVT RECOMMENDATIONSEE BELOWNormal The [facility] HospitalComment on above:Result Comment: ADA RECOMMENDED LIMIT 4.0 - 6.0 ADA THERAPEUTIC TARGET < 7.0 ACTION SUGGESTED > 7.0Performed By: #### HGB #### [facility] [address] [address] [address] Omid BowdenGlucose [Mass/Vol]177 mg/dLNormalThe [facility] HospitalComment on above:Performed By: #### HGB #### [facility] [address] [address] [address] Omid BowdenHbA1c (Bld) [Mass fraction]7.8 %Critically high4.5-6.2The [facility] HospitalComment on above:Performed By: #### HGB #### [facility] [address] [address] [address] Omid BowdenPROF 14(COMP METB)on 20-11-6806Ngadfvp [Mass/Vol]3.0 g/dL Critically low3.4-5.0The [facility] HospitalComment on above:Performed By: #### CMP ####[facility] [address] [address]Dr. Omid BowdenAlbumin/Globulin [Mass ratio]0.7 {ratio}NormalCleveland Clinic Avon Hospital Comment on above:Performed By: #### CMP ####[facility] [address] [address]Dr.Omid BowdenALP [Catalytic activity/Vol]73 U/VOyyvsy40-645Bmt [facility] HospitalComment on above:Performed By: #### CMP ####[facility] [address] [address]Dr. Omid BowdenALT [Catalytic activity/Vol]16 U/VJqpowd23-65Yxn [facility] Comment on above:Performed By: #### CMP ####[facility] [address] [address]Dr.Omid BowdenAnion gap [Moles/Vol]11.3 mmol/LNormalThe [facility] HospitalComment on above:Performed By: #### CMP ####[facility] [address] [address]Dr. Yilan ChangAST [Catalytic activity/Vol]14 U/LCritically jsn92-25Cns [facility] HospitalComment on above:Performed By: #### CMP ####[facility] Dbvyjsjukn[address] [place], [place] [address]Dr.Yilan ChangBilirubin [Mass/Vol]0.3 mg/dLNormal0.2-1.0The [facility] HospitalComment on above:Performed By: #### CMP ####[facility] Brfhdvooux[address] [place], [place] [address]Dr.Yilan ChangCalcium [Mass/Vol]9.5 mg/dLNormal8.5-10.1The [facility] HospitalComment on above:Performed By: #### CMP ####[facility] Kyvqkdpukz[address] [place], [place] [address]Dr.Yilan ChangChloride [Moles/Vol]102 mmol/HSxnpdi16-707Zhc [facility] HospitalComment on above:Performed By: #### CMP ####[facility] Mqcjtlbxdx[address] [place], [place] [address]Dr.Yilan ChangCO2 [Moles/Vol]31.1 mmol/CLyqzqa84.0-32.0The [facility] HospitalCommunising memorial hospital on above:Performed By: #### CMP ####[facility] T[address]xkeetzr[address] [place], [place] [address]Dr.Yilan ChangCreatinine [Mass/Vol]1.28 mg/dLCritically high0.55-1.02The [facility] HospitalComment on above:Performed By: #### CMP ####[facility] Feqjakbyev[address] [place], [place] [address]Dr.Yilan ChangEGFR-AF RRAJMXQH44 mL/min/1.73m2 Critically low>=60The [facility] HospitalComment on above:Performed By: #### CMP ####[facility] Atrkefaqgh[address] [place], [place] [address]Dr. Yilan ChangEGFR-NON AF RAVMILPR42 mL/min/1.27g7Xsdeqveouk low>=60The [facility] HospitalComment on above:Performed By: #### CMP ####[facility] [address] [address]Dr.Yilan ChangGlobulin (S) [Mass/Vol]4.4 g/dLNormalThMercy Health Perrysburg HospitalComment on above:Performed By: #### CMP ####[facility] [address]cntjpdgeb[address] [place], [place] [address]Dr.Yilan ChangGlucose [Mass/Vol]103 mg/zJBvvrep28-123Qdd [facility] Comment on above:Performed By: #### CMP ####[facility] Cxrlvjqqsv[address] [place], [place] [address]Dr.Yilan ChangPotassium [Moles/Vol]4.4 mmol/LNormal3.5-5.1The [facility] HospitalComment on above:Performed By: #### CMP ####[facility] Mtdyrssdoe[address] [place], [place] [address]Dr. Yilan ChangProtein [Mass/Vol]7.4 g/dLNormal6.4-8.2The [facility] HospitalComment on above:Performed By: #### CMP ####[facility] Mrjsmtceef[address] [place], [place] [address]Dr.Yilan ChangSodium [Moles/Vol]140 mmol/LNormal 136-145The [facility] HospitalComment on above:Performed By: #### CMP ####[facility] Zksiqqqiuw[address] [place], [place] [address]Dr.Yilan ChangUrea nitrogen [Mass/Vol]27.0 mg/dLCritically high7.0-18.0The [facility] HospitalComment on above:Performed By: #### CMP ####[facility] Dvownibxfp[address] [place], [place] [address]Dr.Yilan ChangUrea nitrogen/Creatinine [Mass ratio] 21.1 mg/mgNoMarietta Memorial HospitalCommunising memorial hospital on above:Performed By: #### CMP ####[facility] Zpzkdcsjui[address] [place], [place] [address]Dr. Aixalan ChangFormson 70-52-2842Cdhzp [id number]#1.00CD:127NoSt. Mary's Medical Center, Ironton CampusConsent for Procedure/Surgeryon 05-89-0866Jqoaand for Procedure/Surgery [id number]#1.00CD:127NoSt. Mary's Medical Center, Ironton CampusConsultation Noteon 39-61-9648Lpbdvmqgljqr Note [id number]#1.00CD:127NormDayton Children's HospitalConsultation Noteon 69-29-9269Oxrtjvjigzra Note [id number]#1.00CD:127[facility] HospitalCovid-19 PCR (CVDTB)on 42-83-6155GSYJ-CoV-2 (COVID-19) RNA MARII+probe Ql (Unsp spec)Not detectedNormalNOT DETECTEDThe [facility] HospitalComment on above: Result Comment: When diagnostic testing [...] for this test is supported by the [place] of Health and Human Service's declaration that [...] no longer be used).Performed By: #### CVDTBH ####[facility] [address] [place], [place] [address]XgMedardo WhyteUENZA A AND B AGon 81-59-5888FPTBTLHWIAZZJ BELOWNormal The [facility] HospitalComment on above:Result Comment: Negative for Flu A protein angiten. Infection due to Flu A cannot be ruled out. FluA angiten in the sample may be below the detection limit of the test.Performed By: #### INFLUAB ####[facility] [address] [address]Dr. Omid ChangINFLUBNEGHSEE [facility] Medical CenterComment on above:Result Comment: Negative for Flu B protein antigen. Infection due to Flu B cannot be ruled out. FluB antigen in the sample may be below the detection limit of the test.Performed By: #### INFLUAB ####[facility] [address] [address]Dr. Omid ChangINFLUENZA A AGNegativeNormalNEGATIVE SEE COMMENTThe [facility] HospitalComment on above:Performed By: #### INFLUAB ####[facility] Rqaqswghoo[address] [place], [place] [address]Dr. Omid ChangINFLUENZA B AGNegativeNormalNEGATIVE SEE COMMENTThe [facility] Comment on above:Performed By: #### INFLUAB ####[facility] [address]fwhpdkwxc[address] [place], [place] [address]Dr. Omid BowdenLIPID PROFILEon 09-16-2022 CHOL-HDL RATIO NORMSEE [facility] CenterComment on above:Result Comment: 3.3 - 4.4 LOW RISK 4.4 - 7.1 AVERAGE RISK 7.1 - 11.0 MODERATE RISK >11.0 HIGH RISKPerformed By: #### LIPID, BMP #### [facility] [address] [place] [address] Dr. Omid BowdenCholesterol [Mass/Vol]210 mg/dLCritically high<=200The [facility] HospitalComment on above:Performed By: #### LIPID, BMP #### [facility] [address] [place] [address] Dr. Omid BowdenCholesterol in HDL [Mass/Vol]49 mg/nHRllddl16-20Fou [facility] HospitalComment on above:Performed By: #### LIPID, BMP #### [facility] [address] [address] [address] Omid BowdenCholesterol in LDL [Mass/Vol]84.2 mg/dLAccess Hospital DaytonComment on above:Performed By: #### LIPID, BMP #### [facility] [address] [place] [address] Dr. Omid Greeresterol.total/Cholesterol in HDL [Mass ratio]4.3 {ratio} NormalThe [facility] HospitalComment on above:Performed By: #### LIPID, BMP #### [facility] [address] [place] [address] Dr. Omid Black NORMAL> or = 60 mg/dl - LOW CARDIOVASCULAR RISK <40 mg/dl - HIGH CARDIOVASCULAR RISKAccess Hospital DaytonCommunising memorial hospital on above:Performed By: #### LIPID, BMP #### [facility] [address] [place] [address] Dr. Omid Stewart CALC NORMALSEE BELOWAccess Hospital DaytonComment on above:Result Comment: <100 mg/dl OPTIMAL 100 - 129 mg/dl NEAR OR ABOVE OPTIMAL 130 - 159 mg/dl BORDERLINE HIGH 160 - 189 mg/dl HIGH >190 mg/dl VERY HIGH Performed By: #### LIPID, BMP #### [facility] [address] [place] [address] Dr. Omid BowdenTriglyceride [Mass/Vol]384 mg/dLCritically high<=150[facility] on above:Performed By: #### LIPID, BMP #### [facility] [address] [place] [address] Dr. Omid BowdenVLDL CALC76.8 mg/dLNoMarietta Memorial HospitalComment on above: Performed By: #### LIPID, BMP #### [facility] [address] [place] [address] Dr. Omid BowdenPROF CHEM 8 (BAS METB)on 01-09-5544[place] gap [Moles/Vol]10.8 mmol/LNormalCleveland Clinic Avon HospitalComment on above:Performed By: #### LIPID, BMP #### [facility] [address] [place] [address] Dr. Omid BowdenCalcium [Mass/Vol]8.8 mg/dLNormal8.5-10.1The [facility] Comment on above:Performed By: #### LIPID, BMP #### [facility] [address] [place] [address] Dr. Omid BowednChloride [Moles/Vol]98 mmol/UZxcrjx24-763Jtc [facility] Comment on above:Performed By: #### LIPID, BMP #### [facility] [address] [place] [address] Dr. Omid BowdenCO2 [Moles/Vol]34.5 mmol/LCritically high21.0-32.0The [facility] HospitalComment on above:Performed By: #### LIPID, BMP #### [facility] [address] [place] [address] Dr. Omid BowdenCreatinine [Mass/Vol]1.17 mg/dLCritically high0.55-1.02The [facility] HospitalComment on above:Performed By: #### LIPID, BMP #### [facility] [address] [place] [address] Dr. Anne ChangEGFR-AF ABMOJFQE40 mL/min/1.60b4Sfwkcojxid low>=60The [facility] HospitalComment on above:Performed By: #### LIPID, BMP #### [facility] [address] [place] [address] Dr. Omid BatesGFR-NON AF TRXZTFXK76 mL/min/1.42v9Aznuxuzbtk low>=60The [facility] HospitalComment on above:Performed By: #### LIPID, BMP #### [facility] [address] [place] [address] Dr. Omid BowdenGlucose [Mass/Vol]193 mg/dLCritically xbnn37-311Bzz [facility] HospitalComment on above:Performed By: #### LIPID, BMP #### [facility] [address] [place] [address] Dr. Omid BowdenPotassium [Moles/Vol]3.3 mmol/LCritically low3.5-5.1The [facility] HospitalComment on above:Performed By: #### LIPID, BMP #### [facility] [address] [address] [address] Omid BowdenSodium [Moles/Vol]140 mmol/ZDsjigt672-736Tax [facility] Comment on above:Performed By: #### LIPID, BMP #### [facility] [address] [address] [address] Omid Lawson nitrogen [Mass/Vol]31.0 mg/dLCritically high7.0-18.0The [facility] HospitalComment on above:Performed By: #### LIPID, BMP #### [facility] [address] [address] [address] Omid Lawson nitrogen/Creatinine [Mass ratio]26.5 mg/mgNoMarietta Memorial HospitalComment on above:Performed By: #### LIPID, BMP #### [facility] [address] [address] [address] Omid BowdenFacesheeton 37-33-1043Adcviomrk [id number]:[address] [place], [place] [address]Consultation Noteon 22-49-8772Lzacrjdchrgv Note [id number]#1.00CD:[address] [place] [address] Note-Physicianon 03-51-9762EG Note-Physician [id number]#1.00CD:[address] [place], [place] [address]Lab Reportson 79-06-1084Zfu Reports [id number]#1.00CD:[address] [place], [place] [address]Lab [id number]#1.00CD:[address] [place], [place] [address]Physician Referralon 13-37-8107Sqcvffyet Referral [id number]:127NormalOur Lady Of Mercy Hospital - AndersonC. DIFF PCRon 2C. DIFFICILE PCRNegativeNormalNEGATIVEThe [facility] HospitalComment on above:Performed By: #### CDIFPOC ####[facility] Qrzpyijrlr[address] [place], [place] [address]Dr. Omid ChangCBC AUTO DIFF on 21-07-7944WOGU #0.0 103/ulNormal0.0-0.1The [facility] HospitalComment on above: Performed By: #### CBC ####[facility] Uclvsdaxcv[address] [place], [place] [address]Dr.Yilan ChangBasophils/100 WBC (Bld)0.3 %Normal 0.2-2.0The [facility] HospitalComment on above:Performed By: #### CBC ####[facility] Osxnbnsemx[address] [place], [place] [address]Dr.Yilan ChangEO # 0.5 103/ulNormal0.0-0.7The [facility] HospitalComment on above:Performed By: #### CBC ####[facility] [address]jei[address] [place], [place] [address]Dr. Yilan ChangEosinophils/100 WBC (Bld)3.2 %Normal0.9-7.0The [facility] Comment on above:Performed By: #### CBC ####[facility] Adeatjuqsw[address] [place], [place] [address]Dr.Aixalan ChangErythrocyte distribution width (RBC) [Ratio]14.1 %Nhxmoj13.0-15.0The [facility] HospitalComment on above: Performed By: #### CBC ####[facility] [address]ov[address]lvcz[address] [place], [place] [address]Dr.Omid ChangHematocrit (Bld) [Volume fraction]36.1 % Pebias25.0-48.0The [facility] HospitalComment on above:Performed By: #### CBC ####[facility] Uffyasgmfd[address] [place], [place] [address]Dr. Omid ChangHemoglobin (Bld) [Mass/Vol]11.7 g/dLCritically low12.0-16.0The [facility] HospitalComment on above:Performed By: #### CBC ####[facility] [address] [address]Dr.Omid BowdenIG #0.08 10e3/ulCritically high0.00-0.03The [facility] HospitalComment on above:Performed By: #### CBC ####[facility] [address] [address]DrRadha BowdenIG %0.5 %Normal0.0-0.5The [facility] HospitalComment on above: Performed By: #### CBC ####[facility] [address] [place], [place] [address]Dr.Omid WangMPH #1.2 103/ulNormal1.2-3.8The [facility] HospitalComment on above:Performed By: #### CBC ####[facility] Frhyxirefr64[address] [place], [place] [address]Dr.Omid Wanghocytes/100 WBC (Bld)7.5 %Critically low20.5-60.0The [facility] HospitalComment on above: Performed By: #### CBC ####[facility] Bhgodlzpyi3[address] [place], [place] [address]Dr.Omid BowdenMANUAL DIFF REQNONormalThe [facility] HospitalComment on above:Performed By: #### CBC ####[facility] Tbmksvbrfu[address] [place], [place] [address]Dr.Omid BowdenOUR [facility] (RBC) [Entitic mass]29.2 iaFjeiki42.7-34.0The [facility] HospitalComment on above: Performed By: #### CBC ####[facility] [address]jjrjznp[address] [place], [place] [address]Dr.Omid BowdenHC (RBC) [Mass/Vol]32.4 g/dLNormal 29.9-35.2The [facility] HospitalComment on above:Performed By: #### CBC ####[facility] Bhebelzadf[address] [place], [place] [address]Dr. Omid BowdenV (RBC) [Entitic vol]90.0 pDMgimqz05.0-99.0The [facility] Comment on above:Performed By: #### CBC ####[facility] Mkffcjuase[address] [place], [place] [address]Dr.Omid MarquezO #1.0 103/ulCritically high0.3-0.8The [facility] HospitalComment on above:Performed By: #### CBC ####[facility] Unaaqjmkml50[address] [place], [place] [address]Dr. Omid BowdenMonocytes/100 WBC (Bld)6.8 %Normal1.7-12.0[facility] Comment on above:Performed By: #### CBC ####[facility] Bbzjpmyxrt[address] [place], [place] [address]DrRadha RizzoUT #12.5 103/ulCritically high1.4-6.5The [facility] HospitalComment on above:Performed By: #### CBC ####[facility] Mypealnpgy[address] [place], [place] [address]Dr. Omid ChangNeutrophils/100 WBC (Bld)81.7 %Critically high43.0-75.0The [facility] HospitalComment on above:Performed By: #### CBC ####[facility] Aislkuukbq[address] [place], [place] [address]Dr.Omid BowdenPlatelet mean volume (Bld) [Entitic vol]8.9 fLCritically low9.5-13.5ThMercy Health Perrysburg Hospital Comment on above:Performed By: #### CBC ####[facility] Cvftcmzggz[address] [place], [place] [address]Dr.Omid BowdenPLT252 103/gwSjjxiy276-417Jzv [facility] HospitalComment on above:Performed By: #### CBC ####[facility] [address]qlpidsaj[address] [place], [place] [address]DrRadha BowdenRBC4.01 106/ul Critically low4.20-5.40The [facility] HospitalComment on above:Performed By: #### CBC ####[facility] Mynbfguuth[address] [place], [place] [address]DrMedardo Anne UdafgTXF04.3 103/ulCritically high4.0-11.0The [facility] HospitalComment on above:Performed By: #### CBC ####[facility] [address] [place], [place] [address]NjDr.Yilan Turner 75-87-5042Qino [Mass/Vol]59.0 ug/jGKzrraf46.0-170.0The [facility] HospitalComment on above:Performed By: #### HGB #### [facility] [address] [place], [place] [address] Dr. Omid BowdenMAMMEvelia POST BIOPSY RIGHTon 49-18-0852KSXAA POST BIOPSY RIGHT Patient: HARMAN MCLEOD Exam Date: 08/19/2022 : 1940 Gender:F Ordering : DR MATEUS PERRY . Admission #: [id number] Family : Order #: [id number] CLICK HERE TO VIEW EXAM This report [...] by: Judson Bauman MD on 09/06/2022 at 09:57[facility] PROTIMEon 57-05-0265JQG Coag (PPP) [Relative time]0.99 {INR}NormalCleveland Clinic Avon HospitalComment on above:Performed By: #### PT, PTT ####[facility] [address] [place], [place] [address]BuDr. Omid BowdenINR GUIDELINES SEE BELOWNormalThMercy Health Perrysburg HospitalComment on above:Result Comment: DESIRED INR: 2.0 - 3.0 CONDITIONS NOT LISTED BELOW 2.5 - 3.5 FOR PROSTHETIC HEART VALVE REPLACEMENT 2.5 - 3.5 RECURRENT THROMBOSISPerformed By: #### PT, PTT ####[facility] [address] [place], [place] [address]Ul. Yilan ChangPT Coag (PPP) [Time]10.7 sNormal9.0-11.6The [facility] HospitalComment on above:Performed By: #### PT, PTT ####[facility] [address] [place], [place] [address]Dj. Yilan ChangPTTon 15-85-3225vNVR Coag (Bld) [Time]26.0 zTzywlq70.3-36.2The [facility] HospitalComment on above:Performed By: #### PT, PTT ####[facility] [address] [place] [id number]. Yilan ChangUS VAC ASST BX BRST RT W CLIPon 91-89-1910TI VAC ASST BX BRST RT W CLIPPatient: HARMAN MCLEOD Exam Date: 08/19/2022 : 1940 Gender:F Ordering : DR MATEUS PERRY . Admission #: [id number] Family : Order #: [id number] CLICK HERE TO VIEW EXAM This report [...] by: Judson Bauman MD on 09/06/2022 at 09:55[facility] CULTURE URINEon 98-68-1169ADSNVWV URINEIsolate 1 Enterococcus faecalis 100,000 cfu/mL of [...] >=16 R F Nitrofurantoin <=16 S FNormalThe [facility] HospitalComment on above:Performed By: #### URCX ####[facility] [address] [place] [address]Dr. Omid Chaves ADILIA ADMITon 45-37-6379XO [Catalytic activity/Vol] 128 U/EFwtpwo58-533Tcy [facility] HospitalComment on above:Performed By: #### LIPID, BMP #### [facility] [address] [address] [address] Omid Sawyer.MB [Mass/Vol]2.88 ng/mLNormal<=3.60[facility] Comment on above:Performed By: #### LIPID, BMP #### [facility] [address] [address] [address] Omid GarzaTROP24.1 pg/mLNormal4.0-51.3The [facility] HospitalComment on above:Result Comment: CUT-OFF POINTS HAVE BEEN ESTABLISHED BASED ON THE FOURTH UNIVERSAL DEFINITIONS OF MYOCARDIAL INFARCTION. THE UPPER REFERENCE LIMIT (URL) OF TROPONIN, DEFINED THE 99TH PERCENTILE OF cTnI DISTRIBUTION IN A REFERENCE POPULATION, HAS BEEN CONFIRMED THE DECISION THRESHOLD FOR [place] DIAGNOSIS.Performed By: #### LIPID, BMP #### [facility] [address] [place] [address] Dr. Omid Allen61 ng/mLNormal9-82The [facility] HospitalComment on above: Performed By: #### LIPID, BMP #### [facility] [address] [place] [address] Dr. Omid Tolliver AUTO DIFFon 82-37-1158GMZB #0.0 103/ulNormal0.0-0.1The [facility] HospitalComment on above:Performed By: #### HGB #### [facility] [address] [place] [address] Dr. Omid BowdenBasophils/100 WBC (Bld)0.4 %Normal0.2-2.0[facility] Comment on above:Performed By: #### HGB #### [facility] [address] [place] [address] Dr. Omid Maldonado #0.3 103/ulNormal0.0-0.7The [facility] HospitalComment on above: Performed By: #### HGB #### [facility] [address] [place] [address] Dr. Omid Batesosinophils/100 WBC (Bld)2.6 %Normal0.9-7.0[facility] Comment on above:Performed By: #### HGB #### [facility] [address] [place] [address] Dr. Omid Batesrythrocyte distribution width (RBC) [Ratio]14.1 %Wcdxuz71.0-15.0 The [facility] HospitalComment on above:Performed By: #### HGB #### [facility] [address] [place] [address] Dr. Omid BowdenHematocrit (Bld) [Volume fraction]35.5 %Critically low36.0-48.0 The [facility] HospitalComment on above:Performed By: #### HGB #### [facility] [address] [address] [address] Omid BowdenHemoglobin (Bld) [Mass/Vol]11.6 g/dLCritically low12.0-16.0The [facility] HospitalComment on above:Performed By: #### HGB #### [facility] [address] [place] [address] Dr. Omid Aceves #0.06 10e3/ulCritically high0.00-0.03The [facility] Comment on above:Performed By: #### HGB #### [facility] [address] [place] [address] Dr. Omid Aceves %0.6 %Critically high0.0-0.5The [facility] HospitalComment on above:Performed By: #### HGB #### [facility] [address] [place] [address] Dr. Omid Mosley #3.4 103/ulNormal1.2-3.8The [facility] HospitalComment on above:Performed By: #### HGB #### [facility] [address] [place] [address] Dr. Omid Bradleyhocytes/100 WBC (Bld)35.5 %Hovdny12.5-60.0The [facility] HospitalComment on above:Performed By: #### HGB #### [facility] [address] [place] [address] Dr. Omid ConcepcionUAL DIFF REQNONormalThe [facility] HospitalComment on above: Performed By: #### HGB #### [facility] [address] [place] [address] Dr. Omid Hodgson (RBC) [Entitic mass]29.5 krUtvjpa02.7-34.0The [facility] HospitalComment on above:Performed By: #### HGB #### [facility] [address] [place] [address] Dr. Omid Hodgson (RBC) [Mass/Vol]32.7 g/qVRmfrnp37.9-35.2The [facility] HospitalComment on above:Performed By: #### HGB #### [facility] [address] [address] [address] Omid HodgsonV (RBC) [Entitic vol]90.3 yRQjbyws32.0-99.0The [facility] HospitalComment on above:Performed By: #### HGB #### [facility] [address] [place] [address] Dr. Omid Kaur #1.0 103/ulCritically high0.3-0.8The [facility] Comment on above:Performed By: #### HGB #### [facility] [address] [place] [address] Dr. Omid Marquezocytes/100 WBC (Bld)10.5 %Normal1.7-12.0[facility] Comment on above:Performed By: #### HGB #### [facility] [address] [place] [address] Dr. Omid Moreno #4.8 103/ulNormal1.4-6.5The [facility] HospitalComment on above:Performed By: #### HGB #### [facility] [address] [place] [address] Dr. Omid Rizzoutrophils/100 WBC (Bld)50.4 %Oyisvi75.0-75.0The [facility] HospitalComment on above:Performed By: #### HGB #### [facility] [address] [place] [address] Dr. Omid Mcdonaldlet mean volume (Bld) [Entitic vol]9.1 fLCritically low 9.5-13.5The [facility] HospitalComment on above:Performed By: #### HGB #### [facility] [address] [place] [address] Dr. Omid BowdenPLT276 103/msHbuhim126-806Ngb [facility] HospitalComment on above: Performed By: #### HGB #### [facility] [address] [place] [address] Dr. Omid BowdenRBC3.93 106/ulCritically low4.20-5.40The [facility] HospitalComment on above:Performed By: #### HGB #### [facility] [address] [address] [address] Omid BowdenWBC9.5 103/ulNormal4.0-11.0[facility] HospitalComment on above: Performed By: #### HGB #### [facility] [address] [address] [address] Anne ChangEAshley URINE PROFILEon 32-78-3748Tppjaqjcb Ql (U)NegativeNormal NEGATIVECleveland Clinic Avon HospitalComment on above:Performed By: #### GABRIEL OTTOR ####[facility] [address] [place] [id number]. Omid ChangClarity (U)CLEARNormalCLEARCleveland Clinic Avon HospitalComment on above: Performed By: #### GABRIEL OTTOR ####[facility] [address] [place] [address]Dr. Omid ChangColor (U)LT. YELLOWNormalYELLOWCleveland Clinic Avon HospitalComment on above:Performed By: #### ISSAC OTTO ####[facility] [address] [place] [address]DrMedardo Trejo A micrscopic examination will be performed if indicated.NormalThe [facility] HospitalComment on above:Performed By: #### GABRIEL OTTOR ####[facility] [address] [place] [id number]. Omid ChangGlucose Ql (U) NegativeNormalNEGATIVECleveland Clinic Avon HospitalComment on above:Performed By: #### GABRIEL OTTOR ####[facility] [address] [place] [address]DrMedardo Anne ChangHemoglobin Ql (U)NegativeNormalNEGATIVEOhio Valley Hospital on above:Performed By: #### CLARITA ERUR ####[facility] [address] [place] [id number]. Aixalan ChangKetones Ql (U) NegativeNormalNEGATIVEProvidence Hospitalue HospitalComment on above:Performed By: #### GABRIEL OTOTR ####[facility] [address] [place], [place] [address]Fk. Omid BowdenLEUKOCYTESTRACEAbnormalNEGATIVEThe [facility] HospitalComment on above:Performed By: #### GABRIEL OTTOR ####[facility] [address] [place], [place]Dr. Omid BowdenNitrite Ql (U)NegativeNormal NEGATIVEThe [facility] HospitalComment on above:Performed By: #### GABRIEL OTTOR ####[facility] [address] [place] [address]Dr. Omid BowdenpH (U)6.0 [pH]Normal5-9The [facility] HospitalComment on above: Performed By: #### GABRIEL OTTOR ####[facility] [address] [place] [address]Dr. Omid BowdenSPEC GRAVITY1.236Sfkrsx1.005-<=1.025The [facility] HospitalComment on above:Performed By: #### ISSAC OTTO ####[facility] [address] [place] [address]Dr. Omid BowdenUA PROTEINNegativeNormalNEGATIVE/ TRACEThe [facility] HospitalComment on above: Performed By: #### ISSAC OTTO ####[facility] [address] [place] [id number]. Omid BowdenUR MICRO INDINDICATEDNormalThe [facility] HospitalComment on above:Performed By: #### GABRIEL OTTOR ####[facility] [address] [place] [address]Dr. Omid BowdenUrobilinogen Qn (U)0.2 {Jose'U}/dLNormal0.2 - 1.0The [facility] HospitalComment on above: Performed By: #### GABRIEL OTTOR ####[facility] [address] [place] [address]DrMedardo Cerda BLD IMMUNO SCREENon 27-22-2431MVPWZQ BLOODNegativeNormalNEGATIVEThe [facility] HospitalComment on above:Performed By: #### OBSCRN #### [facility] [address] [address] [address] Omid BowdenPROF CHEM 8 (BAS METB)on 19-09-1137Gbdhd gap [Moles/Vol]5.5 mmol/LNormalThe [facility] HospitalComment on above:Performed By: #### LIPID, BMP #### [facility] [address] [place] [address] Dr. Omid BowdenCalcium [Mass/Vol]8.6 mg/dLNormal8.5-10.1The [facility] Comment on above:Performed By: #### LIPID, BMP #### [facility] [address] [place] [address] Dr. Omid BowdenChloride [Moles/Vol]103 mmol/OVboovu52-340Uar [facility] Comment on above:Performed By: #### LIPID, BMP #### [facility] [address] [place] [address] Dr. Omid BowdenCO2 [Moles/Vol]31.8 mmol/CHeehbz39.0-32.0[facility] Comment on above:Performed By: #### LIPID, BMP #### [facility] [address] [place] [address] Dr. Omid BowdenCreatinine [Mass/Vol]0.99 mg/dLNormal0.55-1.02The [facility] HospitalComment on above:Performed By: #### LIPID, BMP #### [facility] [address] [place] [address] Dr. Anne ChangEGFR-AF BOTSWANAN>60Normal>=60The [facility] HospitalComment on above:Performed By: #### LIPID, BMP #### [facility] [address] [place] [address] Dr. Omid BatesGFR-NON AF XRXKEJNO14 mL/min/1.52y3Mlpaqumywa low>=60The [facility] HospitalComment on above:Performed By: #### LIPID, BMP #### [facility] [address] [address] [address] Omid BowdenGlucose [Mass/Vol]112 mg/dLCritically ckuf54-383Kve [facility] on above:Performed By: #### LIPID, BMP #### [facility] [address] [address] [address] Omid BowdenPotassium [Moles/Vol]3.3 mmol/LCritically low3.5-5.1The [facility] HospitalComment on above:Performed By: #### LIPID, BMP #### [facility] [address] [address] [address] Omid BowdenSodium [Moles/Vol]137 mmol/OXmpxnc543-565Lgd [facility] Comment on above:Performed By: #### LIPID, BMP #### [facility] [address] [address] [address] Omid BowdenUrea nitrogen [Mass/Vol]20.0 mg/dLCritically high7.0-18.0The [facility] on above:Performed By: #### LIPID, BMP #### [facility] [address] [address] [address] Omid Lawson nitrogen/Creatinine [Mass ratio]20.2 mg/mgNoMarietta Memorial HospitalCommunising memorial hospital on above:Performed By: #### LIPID, BMP #### [facility] [address] [address] [address] Omid Busch MICROSCOPIC ONLYon 72-24-0574OMGYVKFSOMRGOGyoazwttWGVM SEEN The [facility] HospitalCommunising memorial hospital on above:Performed By: #### CLARITA ERUR ####[facility] [address] [place] [id number]. Omid Crockettcteria identified Cx Nom (U)INDICATED[facility] Comment on above:Performed By: #### CLARITA, ERUR ####[facility] [address] [place], [place]Dr. Omid Odom SEEN NormalNONE SEENThe [facility] HospitalComment on above:Performed By: #### CLARITA, ERUR ####[facility] [address] [place] [id number]. Omid KalCrystals LM Nom (Urine sed)NONE SEENNormalNONE SEENThe [facility] HospitalComment on above:Performed By: #### CLARITA, ERUR ####[facility] [address] [place] [id number]. Omid ChangEpithelial cells LM Ql (Urine sed)FEWAbnormalNONE SEEN /RAREThe [facility] HospitalComment on above:Performed By: #### CLARITA ERUR ####[facility] [address] [place] [id number]. Omid BowdenMUCOUSNONE SEENNormalNONE SEENThe [facility] HospitalComment on above:Performed By: #### CLARITA ERUR ####[facility] [address] [place] [id number]. Omid BowdenRBC0-2 Normal0-2The [facility] HospitalComment on above:Performed By: #### CLARITA ERUR ####[facility] [address] [place] [id number]. Omid BowdenRugyaTRR19-41QonzfqltUTKH SEENThe [facility] HospitalComment on above: Performed By: #### CLARITA, ERUR ####[facility] [address] [place] [id number]. Omid BowdenXR CHEST 1 Von 79-67-1273FD CHEST 1 V CHEST X-RAY HISTORY: Chest pain COMPARISON: 04/06/2021 TECHNIQUE: 1 view chest is submitted for review. FINDINGS: The lungs are adequately expanded without evidence for acute infiltrate or effusion. The cardiac silhouette is enlarged. Pulmonary vascularity is unremarkable. Osseous structures are within expected limits for patients age. . IMPRESSION: Cardiomegaly. Electronically authenticated by: HILL BAILON Date: 2022-08-14 00:46NoMarietta Memorial HospitalCovid-19 PCR (CVDTBH)on 54-63-3867AVGT-CoV-2 (COVID-19) RNA MARII+probe Ql (Unsp spec)Not detectedNormalNOT DETECTEDThe [facility] Comment on above:Result Comment: When diagnostic testing [...] for this test is supported by the [place] of Health and Human Service's declaration that [...] longer be used).Performed By: #### CVDTBH #### [facility] [address] [place] [address] Dr. Omid BowdenMG MAMM RT DIAG FUon 22-69-7916KF MAMM RT DIAG FUPatient: HARSHA HARMAN L. Exam Date: 08/08/2022 : 1940 Gender:F Ordering : DR MATEUS PERRY . Admission #: [id number] Family : Order #: [id number] CLICK HERE TO VIEW EXAM RADIOLOGY REPORT [...] age 39. LOCATION: The [facility] BREAST COMPOSITION: Scattered areas fibroglandular density. [...] by: Alfonso George M.D. on 08/08/2022 at 15:28[facility] DaytonPROF CHEM 8 (BAS METB)on 90-51-7808Refdn gap [Moles/Vol]9.3 mmol/LNormal The [facility] HospitalComment on above:Performed By: #### BMP #### [facility] [address] [address] [address] Omid BowdenCalcium [Mass/Vol]8.1 mg/dLCritically low8.5-10.1The [facility] HospitalComment on above:Performed By: #### BMP #### [facility] [address] [place] [address] Dr. Omid BowdenChloride [Moles/Vol]100 mmol/CIgoggc26-629NxuC[facility] Clinic [facility] Comment on above:Performed By: #### BMP #### [facility] [address] [address] [address] Omid BowdenCO2 [Moles/Vol]31.9 mmol/RHjdoeq17.0-32.0[facility] Comment on above:Performed By: #### BMP #### [facility] [address] [address] [address] Omid BowdenCreatinine [Mass/Vol]1.25 mg/dLCritically high0.55-1.02The [facility] HospitalComment on above:Performed By: #### BMP #### [facility] [address] [address] [address] Omid BatesGFR-AF WGKWJYGD15 mL/min/1.33f1Euuuiopcuu low>=60The [facility] HospitalComment on above:Performed By: #### BMP #### [facility] [address] [address] [address] Omid BatesGFR-NON AF NFYGHGWB76 mL/min/1.40z1Vangfnyecd low>=60The [facility] HospitalComment on above:Performed By: #### BMP #### [facility] [address] [address] [address] Omid BowdenGlucose [Mass/Vol]215 mg/dLCritically xiom69-532Itq [facility] HospitalComment on above:Performed By: #### BMP #### [facility] [address] [place] [address] Dr. Omid BowdenPotassium [Moles/Vol]3.2 mmol/LCritically low3.5-5.1The [facility] HospitalComment on above:Performed By: #### BMP #### [facility] [address] [place] [address] Dr. Omid BowdenSodium [Moles/Vol]138 mmol/WYjmvub575-287Jll [facility] Comment on above:Performed By: #### BMP #### [facility] [address] [place] [address] Dr. Omid BowdenUrea nitrogen [Mass/Vol]32.0 mg/dLCritically high7.0-18.0The [facility] HospitalComment on above:Performed By: #### BMP #### [facility] [address] [place] [address] Dr. Omid Lawson nitrogen/Creatinine [Mass ratio]25.6 mg/mgNormalThe [facility] HospitalComment on above:Performed By: #### BMP #### [facility] [address] [place] [address] Dr. Omid BowdenUS BREAST RIGHT LIMITEDon 71-38-1834KT BREAST RIGHT LIMITED Patient: HARMAN MCLEOD Exam Date: 08/08/2022 : 1940 Gender:F Ordering : DR MATEUS PERRY . Admission #: [id number] Family : Order #: [id number] CLICK HERE TO VIEW EXAM RADIOLOGY REPORT [...] age 39. LOCATION: The [facility] BREAST COMPOSITION: Scattered areas fibroglandular density. [...] by: Alfonso George M.D. on 08/08/2022 at 15:28NoMarietta Memorial HospitalCALCIUMon 45-39-4099Imbpkik [Mass/Vol]8.9 mg/dLNormal8.5-10.1The [facility] HospitalComment on above:Performed By: #### HGB #### [facility] [address] [place] [address] Dr. Omid VuINEon 06-82-5531Qsxhxmnarb [Mass/Vol]1.19 mg/dLCritically high0.55-1.02The [facility] HospitalComment on above:Performed By: #### HGB #### [facility] [address] [place], [place] [address] Dr. Anne ChangEGFR-AF QPBBRXAZ18 mL/min/1.66l7Nvnxpcrpyw low>=60The [facility] HospitalComment on above:Performed By: #### HGB #### [facility] [address] [place], [place] [address] Dr. Anne ChangEGFR-NON AF JUZVQWMW75 mL/min/1.75o3Zwmcsbqatj low>=60The [facility] HospitalComment on above:Performed By: #### HGB #### [facility] [address] [place], [place] [address] Dr. Omid BowdenMG MAMM SCREEN 3D DAVID CADon 74-69-6333JX MAMM SCREEN 3D DAVID CAD Patient: HARMAN MCLEOD Exam Date: 07/19/2022 : 1940 Gender:F Ordering : DR MATEUS PERRY . Admission #: [id number] Family : Order #: [id number] CLICK HERE TO VIEW EXAM RADIOLOGY REPORT [...] age 39. LOCATION: The [facility] BREAST COMPOSITION: Scattered areas fibroglandular density. [...] by: Judson Bauman MD on 07/20/2022 at 07:33[facility] DaytonXR DEXA BONE DENSITYon 29-29-7934LR DEXA BONE DENSITYEXAMINATION: XR DEXA BONE DENSITY, [...] Electronically authenticated by: JUDSON BAUMAN Date: 2022-07-19 20:17[facility] DaytonCALCIUM, IONIC (POC)on 30-95-2051SED Ionized Calcium1.21 mmol/L 1.15 - 1.33 mmol/LBON [facility] HOSPITALSkeed HEALTHCHLORIDE (POC)on 40-64-6157Fhvcacqs [Moles/Vol]103 mmol/L98 - 107 mmol/LBON [facility] VA HOSPITALAbaxiaCreatinine W/GFR Point of Careon 10-93-2294Gsgqeogzgh [Mass/Vol]0.93 mg/dL0.51 - 1.19 mg/dLBON LIVERMORE VA HOSPITALSkeed [facility] COLUMBUSeGFR, POCmL/min/1.51v2ZMO [facility]IN [facility]US MEDICAL CENTERComment on above: Effective Jun 13, 2022 These [...] affects renal tubular secretion. Lactic Acid, POCon 81-64-5613VEY Lactic Acid1.56 mmol/LHigh0.56 - 1.39 mmol/LBON [facility] HOSPITALSkeed [facility] COLUMBUSNo Panel Informationon 06-63-6695Refgbjkctfeasa and review of laboratory resultsAbnormalBON [facility] / [facility]ALTHPO Glucose Fingerstickon 06-39-3731Ujkmbkx [Mass/Vol]135 mg/vTKfqq99 - 105 mg/dL [facility] HOSPITALInterpretation and review of laboratory resultsAbnormal B[facility] MEDICAL CENTERBON MAIN CAMPUS MEDICAL CENTERPOCT Glucoseon 83-59-7712Ongsahi [Mass/Vol]147 mg/fBPuvi73 - 100 mg/dLBON LOU[facility] STOK[facility] CLEVEL[facility] VA MEDICAL CENTERCT urea (BUN)on 39-95-7625Nryz nitrogen [Mass/Vol]20 mg/dL8 - 26 mg/dLBON [facility]AMP[facility]ICAL [facility]ENTER POTASSIUM (POC)on 88-36-4897Zsaeayzif [Moles/Vol]3.7 mmol/L3.5 - 4.5 mmol/LBON MAIN CAMPUS MEDICAL CENTERSODIUM (POC)on 89-60-0114Moscbh [Moles/Vol]141 mmol/L138 - 146 mmol/LBON MAIN CAMPUS MEDICAL CENTERPROF CHEM 8 (BAS METB)on 01-13-9418Jrldw gap [Moles/Vol]9.0 mmol/LNormalThe [facility] HospitalComment on above:Performed By: #### BMP ####[facility] [address] [place] [address]Dr.Yilan ChangCalcium [Mass/Vol]9.0 mg/dLNormal8.5-10.1The [facility] HospitalComment on above:Performed By: #### BMP ####[facility] [address] [place], [place] [address]Dr.Yilan ChangChloride [Moles/Vol]98 mmol/HKextlk96-522Ipi [facility] HospitalComment on above:Performed By: #### BMP ####[facility] [address] [place] [address]Dr.Yilan ChangCO2 [Moles/Vol]33.2 mmol/LCritically high21.0-32.0The [facility] HospitalComment on above:Performed By: #### BMP ####[facility] [address] [place] [address]Dr.Yilan ChangCreatinine [Mass/Vol]1.32 mg/dLCritically high0.55-1.02The [facility] HospitalComment on above:Performed By: #### BMP ####[facility] [address] [place] [address]Dr.Yilan ChangEGFR-AF JZKDBVZM43 mL/min/1.73m2 Critically low>=60The [facility] HospitalComment on above:Performed By: #### BMP ####[facility] [address] [place], [place] [address]Dr. Yilan ChangEGFR-NON AF YQVYPVMH68 mL/min/1.19t3Cqhusxgilg low>=60The [facility] HospitalComment on above:Performed By: #### BMP ####[facility] Evssvdjnum[address] [place], [place] [address]Dr.Yilan ChangGlucose [Mass/Vol]220 mg/dLCritically wnun79-149Dpp [facility] HospitalComment on above: Performed By: #### BMP ####[facility] Qomuqdgjio[address] [place], [place] [address]Dr.Yilan ChangPotassium [Moles/Vol]3.2 mmol/L Critically low3.5-5.1The [facility] HospitalComment on above:Performed By: #### BMP ####[facility] Bmnpuvzeaw[address] [place], [place] [address]Dr. Yilan ChangSodium [Moles/Vol]137 mmol/OZhxaqa874-425Ivu [facility] HospitalComment on above:Performed By: #### BMP ####[facility] Cbagskjzqf[address] [place], [place] [address]Dr.Yilan ChangUrea nitrogen [Mass/Vol]31.0 mg/dL Critically high7.0-18.0The [facility] HospitalComment on above:Performed By: #### BMP ####[facility] Cebfkzkdgq[address] [place], [place] [address]Dr. Yilan ChangUrea nitrogen/Creatinine [Mass ratio]23.5 mg/mgNormalThe [facility] HospitalComment on above:Performed By: #### BMP ####[facility] Gylctumurz[address] [place], [place] [address]Dr.Yilan ChangECHOCARDIO M/2D COMPLETEon [id number] M/2D COMPLETEPatient: HARMAN MCLEOD Exam Date: 04/12/2022 : 1940 Gender:F Ordering : [facility] Admission #: [id number] Family : Order #: [id number] CLICK HERE TO VIEW EXAM ECHOCARDIOGRAM REPORT [...] by: Bertram Keyes M.D. on 04/12/2022 at 19:15NormalCleveland Clinic Avon HospitalPROF CHEM 8 (BAS METB)on [id number] gap [Moles/Vol]12.4 mmol/L NormalCleveland Clinic Avon HospitalComment on above:Performed By: #### BMP ####[facility] Cvzachcrxj[address] [place], [place] [address]Dr.Omid Bowden Calcium [Mass/Vol]9.1 mg/dLNormal8.5-10.1The [facility] HospitalComment on above: Performed By: #### BMP ####[facility] [address] [place] [address]Dr.Yilan ChangChloride [Moles/Vol]100 mmol/LNormal 98-107The [facility] HospitalComment on above:Performed By: #### BMP ####[facility] Mjajkpmauq[address] [place], [place] [address]Dr.Yilan ChangCO2 [Moles/Vol]33.0 mmol/LCritically high21.0-32.0The [facility] HospitalComment on above:Performed By: #### BMP ####[facility] Izvnspbxjw[address] [place], [place] [address]Dr.Yilan ChangCreatinine [Mass/Vol]1.15 mg/dL Critically high0.55-1.02The [facility] HospitalComment on above:Performed By: #### BMP ####[facility] Ejrrvmatia[address] [place], [place] [address]Dr.Yilan ChangEGFR-AF BJCUGCDE30 mL/min/1.95p7Dynolyqele low>=60The [facility] HospitalComment on above:Performed By: #### BMP ####[facility] Clydmnxkpu[address] [place], [place] [address]Dr.Yilan ChangEGFR-NON AF ZGOGONQP09 mL/min/1.93s1Rjxntiscwb low>=60The [facility] HospitalComment on above: Performed By: #### BMP ####[facility] Uouslovrru[address] [place], [place] [address]Dr.Yilan ChangGlucose [Mass/Vol]167 mg/dLCritically vwcq78-406Hcv [facility] HospitalComment on above:Performed By: #### BMP ####[facility] Utctdfemnc[address] [place], [place] [address]Dr. Yilan ChangPotassium [Moles/Vol]3.4 mmol/LCritically low3.5-5.1The [facility] HospitalComment on above:Performed By: #### BMP ####[facility] [address] [place], [place] [address]Af.Omid ChangSodium [Moles/Vol]142 mmol/YHzpvxx087-940Uud [facility] HospitalComment on above: Performed By: #### BMP ####[facility] Hidj[address]xb[address] [place], [place] [address]Jt.Aixalan ChangUrea nitrogen [Mass/Vol]23.0 mg/dL Critically high7.0-18.0The [facility] HospitalComment on above:Performed By: #### BMP ####[facility] X[address]zninumr[address] [place], [place] [address]Qu. Omid ChangUrea nitrogen/Creatinine [Mass ratio]20.0 mg/mgAccess Hospital DaytonComment on above:Performed By: #### BMP ####[facility] Dsqtlzukwg[address] [place], [place] [address]Ba.Omid TiwariMATIC COVID-19 ANTIGENon 19-83-0785KNK [facility] Comment on above:Result Comment: This test has [...] revoked sooner.Performed By: #### LIPID, BMP #### [facility] [address] [address] [address] Omid Gonzales-CoV-2 (COVID-19) RNA MARII+probe Ql (Unsp spec)Positive Critically abnormalNEGATIVEThe [facility] HospitalComment on above:Performed By: #### LIPID, BMP #### [facility] [address] [place] [address] Dr. Omid BowdenHEMOGLOBINon [id number] (Bld) [Mass/Vol]12.3 g/dLNormal 12.0-16.0The [facility] HospitalComment on above:Performed By: #### HGB #### [facility] [address] [place] [address] Dr. Omid Godinez 29-13-5085Rtlknbtffed peptide B (Bld) [Mass/Vol]598.0 pg/mL Normal<=1,800.0The [facility] HospitalComment on above:Performed By: #### LIPID, BMP #### [facility] [address] [place] [address] Dr. Omid BowdenPROF CHEM 8 (BAS METB)on 28-90-2736Vzrot gap [Moles/Vol]11.9 mmol/LNormalThe [facility] HospitalComment on above:Performed By: #### LIPID, BMP #### [facility] [address] [place] [address] Dr. Omid BowdenCalcium [Mass/Vol]9.1 mg/dLNormal8.5-10.1The [facility] Comment on above:Performed By: #### LIPID, BMP #### [facility] [address] [place] [address] Dr. Omid BowdenChloride [Moles/Vol]98 mmol/HSigjkp36-120Itp [facility] Comment on above:Performed By: #### LIPID, BMP #### [facility] [address] [place] [address] Dr. Omid BowdenCO2 [Moles/Vol]33.2 mmol/LCritically high21.0-32.0The [facility] HospitalComment on above:Performed By: #### LIPID, BMP #### [facility] [address] [place] [address] Dr. Omid BowdenCreatinine [Mass/Vol]1.28 mg/dLCritically high0.55-1.02The [facility] HospitalComment on above:Performed By: #### LIPID, BMP #### [facility] [address] [address] [address] Anne ChangEGFR-AF DYLWSLOQ43 mL/min/1.43q1Zcxhouzunn low>=60The [facility] HospitalComment on above:Performed By: #### LIPID, BMP #### [facility] [address] [address] [address] Anne ChangEGFR-NON AF IVDCGWUS65 mL/min/1.26t6Ioyjobrlig low>=60The [facility] HospitalComment on above:Performed By: #### LIPID, BMP #### [facility] [address] [address] [address] Omid BowdenGlucose [Mass/Vol]182 mg/dLCritically rzby42-311Exk [facility] HospitalComment on above:Performed By: #### LIPID, BMP #### [facility] [address] [address] [address] Omid BowdenPotassium [Moles/Vol]3.1 mmol/LCritically low3.5-5.1The [facility] HospitalComment on above:Performed By: #### LIPID, BMP #### [facility] [address] [address] [address] Omid BowdenSodium [Moles/Vol]140 mmol/UZiaozw299-430Nxp [facility] Comment on above:Performed By: #### LIPID, BMP #### [facility] [address] [address] [address] Omid BowdenUrea nitrogen [Mass/Vol]30.0 mg/dLCritically high7.0-18.0The [facility] HospitalComment on above:Performed By: #### LIPID, BMP #### [facility] [address] [place] [address] Dr. Omid BowdenUrea nitrogen/Creatinine [Mass ratio]23.4 mg/mgNormalThe [facility] HospitalComment on above:Performed By: #### LIPID, BMP #### [facility] [address] [address] [address] Omid BowdenXR CHEST 2 Von [id number] CHEST 2 VEXAMINATION: XR CHEST 2 V [...] Electronically authenticated by: ALFONSO GEORGE Date: 2022-02-09 11:[address] [place], [place] [address]No Panel Informationon 63-60-5578Oxrli HealthPOCT Glucoseon 40-51-3460Kwrqaol [Mass/Vol]196 mg/oRCeoq04 - 100 mg/dLMercy Health Lorain Hospital [place] Interpretation and review of laboratory resultsAbnormalProtestant HospitalPOTASSIUM (POC)on 82-84-9770Yzjippcbf [Moles/Vol]3.7 mmol/L3.5 - 4.5 mmol/LMmercy health st[facility] charles hospitaly Health TYPE AND SCREENon 16-71-6078HVE/RhPositiveProtestant HospitalArm Band NumberBE [id number] [facility] HealthExpiration Date12/16/2021,2359[facility] WallarmProtestant HospitalEKG 12 lead Ordered By: Dennis Garcia on 16-95-7477Oearph Dhkf15NGEJivfk Health Work Phone: p Lhyw65mjfttvvEynqw Health Work Phone: p-R Voafylsl712 [facility] Work Phone: Q-T Vxcitagw760 [facility] Work Phone: QRS Vxiloetn718 [facility] Work Phone: QTc Calculation (Yaritza)488 [facility] [employer] Work Phone: r Hkut37luwvcezWbcgg Health Work Phone: T Haua860ytoflibCcszs Health Work Phone: Ventricular Zxuq47UNZZtiae Health Work Phone: [facility]ja Medical CenterZENT Work Phone: eKG 12 leadon 08-99-0347Ssfqy rhythm with Premature atrial complexes Left bundle branch block Abnormal ECG When compared with ECG of 12-MAY-2021 12:39, T wave inversion now evident in Inferior leadsMHPN STV Dennis Kauffman MD - 12/07/2021 Sinus rhythm with Premature atrial complexes Left bundle branch block Abnormal ECG When compared with ECG of 12-MAY-2021 12:39, T wave inversion now evident in Inferior leadsProtestant Hospital Work Phone: cbc auto differentialon 79-61-5747Xqvgowhw Eos #0.13 [facility] HospitalAbsolute Immature Granulocyte0.12Protestant HospitalAbsolute Lymph #3.18 Protestant HospitalAbsolute Kimball #1.22HighProtestant HospitalBasophils (Bld) [#/Vol]0.05 10*3/uLProtestant HospitalBasophils/100 WBC (Bld)0 %0 - 2 %Protestant HospitalEosinophils/100 WBC (Bld)1 %1 - 4 %Protestant HospitalHematocrit (Bld) [Volume fraction]38.4 %36.3 - 47.1 %Protestant HospitalHemoglobin.gastrointestinal spec 1 Ql (Stl)12.2 g/dL11.9 - 15.1 g/dLProtestant HospitalImmature granulocytes/100 WBC (Bld)1 %[address] Interpretation and review of laboratory resultsAbnormalProtestant Hospital Lymphocytes/100 WBC (Bld)25 %24 - 43 %[facility]H (RBC) [Entitic mass]29.9 pg25.2 - 33.5 pgWayne HealthCare Main CampusHC (RBC) [Mass/Vol]31.8 g/dL28.4 - 34.8 g/dLWayne HealthCare Main CampusV (RBC) [Entitic vol]94.1 fL82.6 - 102.9 fLProtestant HospitalMonocytes/100 WBC (Bld)10 %3 - 12 %Protestant HospitalNRBC Automated0.00.0 per 100 WBCProtestant Hospital Platelet distribution width (Bld) [Ratio]14.5 %High11.8 - 14.4 %[facility] Platelet mean volume (Bld) [Entitic vol]10.1 fL8.1 - 13.5 fLProtestant Hospital Platelets (Bld) [#/Vol]266 10*3/uLMer HealthRBC (Bld) [#/Vol]4.08 10*6/uL3.95 - 5.11 m/uLMercy Health Lorain Hospital HealthRBC (Bld) [#/Vol]ANISOCYTOSIS PRESENTProtestant Hospital Segmented neutrophils/100 WBC (Bld)63 %36 - 65 %Protestant HospitalSegs Absolute7.88 Protestant HospitalWBC (Bld) [#/Vol]12.6 10*3/uLHighMercyhealth Walworth Hospital and Medical Center Comprehensive Metabolic Panel w/ Reflex to MGon [id number] [Mass/Vol]3.7 g/dL3.5 - 5.2 g/dLMercy Health Lorain Hospital HealthAlbumin/Globulin [Mass ratio]1.1 {ratio}Protestant HospitalALP (Bld) [Catalytic activity/Vol]93 U/L35 - 104 U/LMercy HealthALT [Catalytic activity/Vol]12 U/L5 - 33 U/LMercy HealthAnion gap [Moles/Vol]14 mmol/L9 - 17 mmol/LMercy HealthAST [Catalytic activity/Vol]12 U/L<32[facility] Bilirubin [Mass/Vol]0.25 mg/dLLow0.3 - 1.2 mg/dLMercy Health Lor[facility] Hospital HealthCalcium [Mass/Vol] 9.1 mg/dL8.6 - 10.4 mg/dLMercy Health Lor[facility] Hospital HealthChloride [Moles/Vol]95 mmol/LLow98 - 107 mmol/LMercy HealthCO2 [Moles/Vol]30 mmol/L20 - 31 mmol/LMercy HealthCreatinine [Mass/Vol]1.07 mg/dLHigh0.50 - 0.90 mg/dLMercy Health Lorain Hospital HealthFree PSA/Total PSA [Mass fraction]7.2 g/dL6.4 - 8.3 g/dLMercy Health Lorain Hospital HealthGFR Jlfomzfr70 mL/minLow>60 [facility] HealthGFR Non- Crfmbaxb51 mL/minLow>60[facility] HealthGFR/1.73 sq M.predicted MDRD (S/P/Bld) [Vol rate/Area]Protestant HospitalComment on above:Average GFR for 70 or more years old: 75 mL/min/1.73sq m Chronic Kidney Disease: <60 mL/min/1.73sq m Kidney failure: <15 mL/min/1.73sq m eGFR calculated using average adult body mass. Additional eGFR calculator available at: http://www.Mippin/multiple_crcl_2012.htm Glucose [Mass/Vol]188 mg/aWZvru04 - 99 mg/dLMercy Health Lorain Hospital HealthInterpretation and review of laboratory resultsAbnormalMer HealthPotassium [Moles/Vol]3.3 mmol/L Low3.7 - 5.3 mmol/LMercy HealthSodium [Moles/Vol]139 mmol/L135 - 144 mmol/LMercy HealthUrea nitrogen (BldV) [Mass/Vol]22 mg/dL8 - 23 mg/dLAkron Children's Hospital HealthMagnesiumon 02-92-9004Mevbjmmbf [Mass/Vol]1.6 mg/dL1.6 - 2.6 mg/dLMercyhealth Walworth Hospital and Medical CenterNo Panel Informationon 61-94-0521Ir acute process. [facility] CONSOLIDATEDEXAMINATION: TWO XRAY VIEWS OF THE [...] The osseous structures are without acute process. [facility] Kael Black MD - 12/06/2021 EXAMINATION: [...] without acute process. IMPRESSION: No acute process. [employer] Phone: radiology Study observation (narrative)[employer] Phone: No Panel InformationOrdered By: Kael Freeman on 82-20-7078MhrmyAdvanced System Designs Phone: Creatinine W/GFR Point of CareOrdered By: Kin Abarca on 03-52-9924Oljuiqzwwb [Mass/Vol]0.89 mg/dL0.51 - 1.19 mg/dLAdvanced [employer]s Phone: GFR Non->60>60 mL/minUniversity Hospitals Ahuja Medical CenterBiosport Athletechs Phone: GFR/1.73 sq M.predicted MDRD (S/P/Bld) [Vol rate/Area] mL/min/{1.73_m2}>60 mL/minUniversity Hospitals Ahuja Medical CenterBiosport Athletechs Phone: GFR/1.73 sq M.predicted MDRD (S/P/Bld) [Vol rate/Area] [employer] Phone: comment on above:Average GFR for 70 or more years old: 75 mL/min/1.73sq m Chronic Kidney Disease: <60 mL/min/1.73sq m Kidney failure: <15 mL/min/1.73sq m eGFR calculated using average adult body mass. Additional eGFR calculator available at: http://www.Mippin/multiple_crcl_2012.htm No Panel InformationOrdered By: Kin Abarca on 29-60-7251[facility] Work Phone: pOC Glucose FingerstickOrdered By: Kin Abarca on 50-72-2329Xazmovl [Mass/Vol]163 mg/bJCylj75 - 105 mg/dLUniversity Hospitals Ahuja Medical CenterBiosport Athletechs Phone: Interpretation and review of laboratory results AbnormalUniversity Hospitals Ahuja Medical CenterBiosport Athletechs Phone: [facility] CenterBiosport Athletechs Phone: pOCT GlucoseOrdered By: Kin Abarca on 06-15-2021 Glucose [Mass/Vol]186 mg/tEZfvp18 - 100 mg/dLUniversity Hospitals Ahuja Medical CenterBiosport Athletechs Phone: Interpretation and review of laboratory results AbnormalUniversity Hospitals Ahuja Medical CenterBiosport Athletechs Phone: pOTASSIUM (POC)Ordered By: Kin Abarca on 06-15-2021 Potassium [Moles/Vol]4.5 mmol/L3.5 - 4.5 mmol/LMmercy health st. charles hospitaly [employer] Phone: eKG 12 leadOrdered By: Latonia Burks on 05-13-2021 Atrial Myqe11ALDLfpsgYourPOV.TV Phone: p Nutg75ikoojgcRsxue Health Work Phone: p-R Zemmnrrf046 [facility] LindsayYourPOV.TV Phone: Q-T Qalysmwf702 [facility] LindsayYourPOV.TV Phone: QRS Buxoszqw381 [facility] LindsayJia.com Work Phone: QTc Calculation (Bazett)532 [place] [facility] HospitalZeebo Work Phone: r Qvot47ljyjrysRoeyv Health Work Phone: T Iusc129iqxawreAxqib Health Work Phone: Ventricular Gcvn67XEKTnqgzYourPOV.TV Phone: sinus rhythm with Premature atrial complexes Left bundle branch block Abnormal ECG No previous ECGs available Protestant HospitalPinnacle [facility] Phone: edi, pn Incoming Ekg Results From [facility] - 05/13/2021 1:30 PM EDT Sinus rhythm with Premature atrial complexes Left bundle branch block Abnormal ECG No previous ECGs availableUniversity Hospitals Ahuja Medical CenterBiosport Athletechs Phone: [facility] CenterBiosport Athletechs Phone: basic Metabolic Panel w/ Reflex to MGOrdered By: Latonia Burks on 96-43-1598Hosit gap [Moles/Vol]13 mmol/L9 - 17 mmol/LMmercy health st[address] charles hospitaly [employer] Work Phone: calcium [Mass/Vol]9.4 mg/dL8.6 - 10.4 mg/dLUniversity Hospitals Ahuja Medical CenterBiosport Athletechs Phone: chloride [Moles/Vol]102 mmol/L98 - 107 mmol/LMmercy health st[address] charles hospitaly [employer] Phone: cO2 [Moles/Vol]28 mmol/L20 - 31 mmol/LMmercy health st. charles hospitaly [employer] Phone: creatinine [Mass/Vol]0.94 mg/dLHigh0.50 - 0.90 mg/dL Protestant HospitalPinnacle Engines Phone: GFR >60>60 mL/minUniversity Hospitals Ahuja Medical CenterBiosport Athletechs Phone: GFR Non- Wdhqtgzm51 mL/minLow>60[facility] CenterBiosport [facility] Phone: GFR/1.73 sq M.predicted MDRD (S/P/Bld) [Vol rate/Area] Protestant HospitalPinnacle Engines Phone: comment on above:Average GFR for 70 or more years old: 75 mL/min/1.73sq m Chronic Kidney Disease: <60 mL/min/1.73sq m Kidney failure: <15 mL/min/1.73sq m eGFR calculated using average adult body mass. Additional eGFR calculator available at: http://www.Mippin/multiple_crcl_2012.htm GFR/1.73 sq M.predicted MDRD (S/P/Bld) [Vol rate/Area]NOT REPORTEDUniversity Hospitals Ahuja Medical CenterBiosport Ath[employer]chs Phone: Glucose [Mass/Vol]119 mg/jPSmns79 - 99 mg/dLUniversity Hospitals Ahuja Medical CenterBiosport Athletechs Phone: Interpretation and review of laboratory results AbnormalUniversity Hospitals Ahuja Medical CenterBiosport Athletechs Phone: potassium [Moles/Vol]4.0 mmol/L3.7 - 5.3 mmol/LMmercy health st. charles hospitaly [employer] Phone: sodium [Moles/Vol]143 mmol/L135 - 144 mmol/LMercy Wallarm Work Phone: Urea nitrogen (BldV) [Mass/Vol]18 mg/dL8 - 23 mg/dL [employer] Phone: Urea nitrogen/Creatinine (Bld) [Mass ratio]NOT REPORTEDUniversity Hospitals Ahuja Medical CenterBiosport Athletechs Phone: [facility] CenterBiosport Athletechs Phone: cBC auto differentialOrdered By: Latonia Burks on 28-41-7451Vidqjkjm Eos #0.26[facility]ja Medical CenterBiosport Athletechs Phone: absolute Immature Granulocyte0.04[facility] Medical CenterBiosport [facility] Phone: absolute Lymph #3.26[facility] Medical CenterBiosport [facility] Phone: absolute Kimball #0.84[facility] Medical CenterBiosport [facility] Phone: basophils (Bld) [#/Vol]0.05 10*3/uLUniversity Hospitals Ahuja Medical CenterBiosport Athletechs Phone: basophils/100 WBC (Bld)1 %0 - 2 %[employer] Phone: differential TypeNOT REPORTEDUniversity Hospitals Ahuja Medical CenterBiosport Athletechs Phone: eosinophils/100 WBC (Bld)3 %1 - 4 %[employer] Phone: Hematocrit (Bld) [Volume fraction]36.9 %36.3 - 47.1 % [employer] Phone: Hemoglobin.gastrointestinal spec 1 Ql (Stl)11.2 g/dL Low11.9 - 15.1 g/dLUniversity Hospitals Ahuja Medical CenterBiosport Athletechs Phone: Immature granulocytes/100 WBC (Bld)0 %0[facility] Medical CenterBiosport Athlete[facility] Phone: Interpretation and review of laboratory results AbnormalUniversity Hospitals Ahuja Medical CenterBiosport Athletechs Phone: lymphocytes/100 WBC (Bld)32 %24 - 43 %[employer] Phone: MCH (RBC) [Entitic mass]28.3 pg25.2 - 33.5 pgUniversity Hospitals Ahuja Medical CenterZENT Work Phone: MCHC (RBC) [Mass/Vol]30.4 g/dL28.4 - 34.8 g/dLUniversity Hospitals Ahuja Medical CenterBiosport Athletechs Phone: [phone] (RBC) [Entitic vol]93.2 fL82.6 - 102.9 fLUniversity Hospitals Ahuja Medical CenterBiosport Athletechs Phone: [phone]/100 WBC (Bld)8 %3 - 12 %[employer] Phone: NRBC Automated0.00.0 per 100 WBCAdvanced System Designs Phone: [phone] distribution width (Bld) [Ratio]13.8 %11.8 - 14.4 %[employer] Phone: [phone] EstimateNOT REPORTEDUniversity Hospitals Ahuja Medical CenterBiosport Athletechs Phone: Platelet mean volume (Bld) [Entitic vol]9.5 fL8.1 - 13.5 fLUniversity Hospitals Ahuja Medical CenterBiosport Athletechs Phone: [phone] (Bld) [#/Vol]310 10*3/uLAdvanced [employer]s Phone: [phone] (Bld) [#/Vol]3.96 10*6/uL3.95 - 5.11 m/ORVIBO Phone: [phone] (Bld) [#/Vol]NOT REPORTEDUniversity Hospitals Ahuja Medical CenterBiosport Athletechs Phone: [phone] neutrophils/100 WBC (Bld)56 %36 - 65 %[employer] Phone: [phone] Absolute5.70[facility] Medical CenterBiosport [employer] Phone: [phone] (Bld) [#/Vol]10.2 10*3/uLAdvanced [employer]s Phone: [phone] (Bld) [#/Vol]NOT REPORTEDUniversity Hospitals Ahuja Medical CenterZENT Work Phone: [phone] Work Phone: [phone] CHEST (2 VW)Ordered By: Latonia Burks on 05-12-2021 Senescent changes compatible with the age of the patient. No evidence of acute cardiopulmonary process.[employer] Phone: eXAMINATION: TWO XRAY VIEWS OF THE [...] the spine and visualized portions of the shoulders.[employer] Phone: edi, [facility] Incoming Radiant Results From [employer] - 05/12/2021 2:48 PM EDT EXAMINATION: TWO [...] patient. No evidence of acute cardiopulmonary process. [employer] Phone: [facility] CenterBiosport Athletechs Phone: cardiovascular Lab Reporton [id number] Lab ReportUnSelect Medical Specialty [facility] MR #: [id number] Department of Physician: Bertram Keyes M.D. Division of Service Date: 08/20/2020 Cardiology Birthdate: 1940 Adult Cardiovascular Room #: [facility] [address] [place] [address] Cardiovascular Laboratory Report INDICATION: The patient is [...] signed informed consent. She was brought to landscape laborer in a fasting state. The procedure was performed under conscious sedation. A transesophageal echocardiogram was performed by Dr. Marisol Khoury at baseline. Please refer to his dictation for details. The appendage measured a maximum of 16 mm in terms of ostial width. Using ultrasound guidance and micropuncture technique, access was obtained in the right common femoral vein and a 6-Indonesian x 11 cm sheath was placed preclosure where the 6-Indonesian ProGlide device was performed followed by advancement [...] was exchanged over that wire to the 14-Indonesian Watchman access sheath, which was advanced to the left atrial cavity with no issues. The 6-Indonesian angled pigtail catheter was advanced over the [...] Keyes M.D. Date Trans: (more content not included)...NormalKnox Community HospitalTYPE AND CROSSMATCHon 15-92-9365YJZ INTERPRETATIONANoVan Wert County HospitalComment on above:Performed By: #### [id number] #### [facility] [address] [facility] [place] [address], [facility] INTERPRETATIONPositiveVeterans Health AdministrationComment on above:Performed By: #### [id number] #### [facility] [address] [place] [address], [facility] Vital Signs Date TimeVital SignValuePerforming QpljzjakiHxklfkbb28-02-5499 11:06-0500Body pevdet437.4 cmMateus Perry MD Work Phone: [phone] [place], [place] 9704011-03-2025 11:06-0500 Body mass index (BMI) [Ratio]25.5 kg/b7HjajeqxMateus Perry MD Work Phone: [phone] [place], [place] 9704011-03-2025 11:06-0500 Body iozape96.42 kgMateus Perry MD Work Phone: 5(206)118-[address] [place], [place] 9704010-23-2025 13:58-0400 Body rljxee287.4 cmPeyman Brown DPM Work Phone: 7(208)782-[address] [place], [place] [address]Rhbeamblhp67-50-6293 13:58-0400Body mass index (BMI) [Ratio]28.32 kg/d1Xypsoish Brown DPM Work Phone: 6(675)324-[address] [place], [place] [address]Vtonctgoab60-25-0778 13:58-0400Body .77 kgNicholvalentina Hensley DPM Work Phone: 3(011)847-[address] [place], [place] [address]Jdjylwophv70-07-2178 13:58-0400Respiratory rate16 /minPeyman Hensley DPM Work Phone: 6(627)4-[address] [place], [place] [address]Gpvfuyuhxy45-95-7957 14:36-0400Body .4 cmNicholvalentina Brown DPM Work Phone: 5(452)441-[address] [place], [place] [address]Sxqgzpnkob96-49-5754 14:36-0400Body mass index (BMI) [Ratio]28.32 kg/l9Faxvkhep Brown DPM Work Phone: [facility]ys[facility]wux[facility]9168 14:36-0400Body vuozhv24.77 kgPeyman Hensley DPM Work Phone: [facility] HospitalNbcfelwoov76-61-8443 14:36-0400Respiratory rate16 /minPeyman Hensley DPM Work Phone: [facility] HospitalVuuykwskqh96-97-5593 13:02-0500Body vizwia022.9 cmAdajayme Ashton MD Work Phone: [facility] Mypiib73-10-4482 13:02-0500Body mass index (BMI) [Ratio]28.13 kg/k7JviwybVaibhav Ashton MD Work Phone: [facility] DaytonQumfit97-98-2392 13:02-0500Body temperature 97.2 [degF]Vaibhav Ashton MD Work Phone: [facility] DaytonKodckd25-48-6314 13:02-0500Body lhwyky54.5 kgVaibhav Ashton MD Work Phone: [facility] Qaqevr50-49-8291 13:02-0500Diastolic blood pbqwiruw43 mm[Hg]Vaibhav Ashton MD Work Phone: [facility] Wmfipf00-83-7727 13:02-0500Heart rate75 /min Vaibhav Ashton MD Work Phone: [facility] Rmelhj22-81-4303 13:02-0500Respiratory rate 16 /minAdajayme Ashton MD Work Phone: [facility] Ktalga10-14-6329 13:02-5378VeN1% (BldA) [Mass fraction]99 %Vaibhav Ashton MD Work Phone: [facility] Vrqpal56-73-0033 13:02-0500Systolic blood vmvhxpay943 mm[Hg]Vaibhav Ashton MD Work Phone: [facility] HospitalEmfnln54-78-0102 10:01-0500Body tdhjom776.4 cmNicholvalentina Hensley DPM Work Phone: 1(383)[address]12-19-2024 10:01-0500Body mass index (BMI) [Ratio]28.32 kg/i8Fmzllmgv Brown DPM Work Phone: 1(575)095-[address] [place], [place] [address]Awjejznsto69-95-2964 10:010500Body .77 kgNicholas Brown DPM Work Phone: 1(685)[address]12-19-2024 10:01-0500Respiratory rate16 /minNicholvalentina Brown DPM Work Phone: 1(509)[address] [place], [place] 5395410-10-2024 10:140400Body fojzkx362.4 cmNicholvalentina Brown DPM Work Phone: 1(277)[address]10-10-2024 10:140400Body mass index (BMI) [Ratio]28.32 kg/y1Zdhcqkej Brown DPM Work Phone: 1(729)[address] [place], [place] 5395410-10-2024 10:140400Body fsaddy39.77 kgNicholvalentina Hensley DPM Work Phone: 1(841)[address]10-10-2024 10:140400Respiratory rate18 /minNicdayana Hensley DPM Work Phone: 1(816)0-[address] [place], [place] [address]Mdabswhddr36-13-1010 10:180400Body nyfkhg604.86 cmMD Mateus Perry Work Phone: 1(466)554-[address] [place], [place] 9704008-21-2024 10:18-0400 Body mass index (BMI) [Ratio]30.2 kg/m2MD Mateus Hoy Work Phone: 1(258)211-[address] [place], [place] 9704008-21-2024 10:180400 Body fmomfjlyuli28.8 [degF]MD Mateus Perry Work Phone: 1(505)888-[address] [place], [place] 9704008-21-2024 10:18-0400 Body rdrxus95.03 kgMD Mateus Perry Work Phone: 1(001)756-[address] [place], [place] 9704008-21-2024 10:18-0400 Diastolic blood lyypueuw14 mm[Hg]MD Mateus Perry Work Phone: [phone])483-[address] [place], [place] 9704008-21-2024 10:18-0400 Heart rate80 /minMD Mateus Maciely Work Phone: 1(419)[address]08-21-2024 10:18-0400 Respiratory rate16 /minMD Mateus Hoy Work Phone: 1(419)[facility]-[address] [place], [place] 9704008-21-2024 10:18-0400 SaO2% (BldA) [Mass fraction]98 %MD Mateus Perry Work Phone: 1(419)[address] [place], [place] 1904008-21-2024 10:18-0400 Systolic blood nireckcw856 mm[Hg]MD Mateus Perry Work Phone: 1(419)[address] [place], [place] 1904008-14-2024 11:13-0400 Body noxnqu472.86 cmMD Mateus Hoy Work Phone: 1(419)[address] [place], [place] 1904008-14-2024 11:13-0400 Body mass index (BMI) [Ratio]36.3 kg/m2MD Mateus Hoy Work Phone: 1419)[address] [place], [place] 1904008-14-2024 11:13-0400 Body wnotte44.64 kgMD Mateus Hoy Work Phone: 1(419)[address] [place], [place] 1904008-14-2024 11:06-0400 Body bapdbzuvwam36.8 [degF]MD Mateus Perry Work Phone: 1(419)[address] [place], [place] 1904008-14-2024 11:06-0400 Diastolic blood qmqgejzy18 mm[Hg]MD Mateus Perry Work Phone: 1(419)[address] [place], [place] 1904008-14-2024 11:06-0400 Heart rate97 /minMD Mateus Perry Work Phone: 1419)[address] [place], [place] 1904008-14-2024 11:06-0400 Respiratory rate20 /minMD Uribelas Hoy Work Phone: 1(379)[address] [place], [place] 1904008-14-2024 11:06-0400 Systolic blood kogomwcj089 mm[Hg]MD Mateus Perry Work Phone: 1(789)[address] [place], [place] 1904007-31-2024 10:30-0400 Body edimdr717.86 cmMD Mateus Hoy Work Phone: 1(109)[address] [place], [place] 1904007-31-2024 10:30-0400 Body mass index (BMI) [Ratio]36.3 kg/m2MD Mateus Hoy Work Phone: 1(904)[address] [place], [place] 1904007-31-2024 10:30-0400 Body hpeumf00.64 kgMD Mateus Hoy Work Phone: 1(007)[address] [place], [place] 1904007-16-2024 09:51-0400 Body gixyhj742.86 cmMD Mateus Hoy Work Phone: 1(968)[address] [place], [place] 1904007-16-2024 09:51-0400 Body mass index (BMI) [Ratio]36.3 kg/m2MD Mateus Hoy Work Phone: 1(736)[address] [place], [place] 1904007-16-2024 09:51-0400 Body nnqzuj94.64 kgMD Mateus Hoy Work Phone: 1(796)[address] [place], [place] 1904007-16-2024 09:36-0400 Body ywxaljfbubz31.3 [degF]MD Mateus Perry Work Phone: 1(268)[address] [place], [place] 1904007-16-2024 09:36-0400 Diastolic blood qkudmxdk57 mm[Hg]MD Mateus Perry Work Phone: 1(524)[address] [place], [place] 1904007-16-2024 09:36-0400 Heart rate86 /minMD Mateus Hoy Work Phone: 1(987)[address] [place], [place] 1904007-16-2024 09:36-0400 Respiratory rate18 /minMD Mateus Hoy Work Phone: 1(039)[address] [place], [place] 1904007-16-2024 09:36-0400 Systolic blood jlhofgnq280 mm[Hg]MD Mateus Perry Work Phone: 1(628)[address] [place], [place] 1904010-10-2023 15:29-0400 Body dkexja924.9 cmMinantonella Farris PA-C Work Phone: [facility]10-10-2023 15:29-0400Body temperature 97.39 [degF]Winnie Kaleigh PA-C Work Phone: [facility]10-10-2023 15:29-0400Body .64 kgMindy Kaleigh PA-C Work Phone: [facility]10-10-2023 15:29-0400Diastolic blood mqnvvtao25 mm[Hg]Winnie Kaleigh PA-C Work Phone: [facility]10-10-2023 15:29-0400Heart rate72 /min Winnie Kaleigh PA-C Work Phone: [facility]10-10-2023 15:29-0400Respiratory rate 16 /minMindy Kaleigh PA-C Work Phone: [facility]10-10-2023 15:29-7285KsJ1% (BldA) [Mass fraction]96 %Winnie Kaleigh PA-C Work Phone: [facility]10-10-2023 15:29-0400Systolic blood gjsjbtwo528 mm[Hg]Winnie Kaleigh PA-C Work Phone: [facility]09-21-2023 08:45-0400Body .94 cmMamaximo Gonzales Other [employer] Other 09-21-2023 08:45-0400Body mass index (BMI) [Ratio] 34.57 kg/a3ZnaqpvmChristiano Gonzales Other [employer] Other 09-21-2023 08:45-0400Body mmmweftsokc21.8 [degF] Christiano Gonzales Other [employer] Other 09-21-2023 08:45-0400Body .01 kgMamaximo Gonzales Other [employer] Other 09-21-2023 08:45-0400Diastolic blood mm[Hg] Christiano Gonzales Other [employer] Other 09-21-2023 08:45-9986DqV0% (BldA) [Mass fraction]93 % Christiano Gonzales Other [employer] Other 09-21-2023 08:45-0400Systolic blood ukbujeid075 mm[Hg] Christiano Gonzales Other [employer] Other 06-29-2023 08:45-0400Body fzwopv264.94 cmMillie Storm Other [employer] [employer] Other 06-29-2023 08:45-0400Body mass index (BMI) [Ratio] 34.57 kg/a5GhkgmwMillie Storm Other [facility] [employer] Other 06-29-2023 08:45-0400Body akcvgqipvmj82.8 [degF]Millie Storm Other [employer] [employer] Other 06-29-2023 08:45-0400Body qemiux26.01 kgMillie Storm Other [facility] Other 06-29-2023 08:45-0400Diastolic blood tkpyrfkc36 mm[Hg] Millie Storm Other [employer] [employer] Other 06-29-2023 08:45-2432DvC0% (BldA) [Mass fraction]97 % Millie Storm Other [employer] Other 06-29-2023 08:45-0400Systolic blood gaexnhqg387 mm[Hg] Millie Storm Other [employer] Other 06-06-2023 10:19-0400Body cqvfac444.9 cmWallace Stone MD Work Phone: [facility]06-06-2023 10:19-0400Body temperature 97.39 [degF]Wallace Stone MD Work Phone: [facility]06-06-2023 10:19-0400Body rxipoy07.46 kgWallace Stone MD Work Phone: [facility]06-06-2023 10:19-0400Diastolic blood qbopgwgj30 mm[Hg]Wallace Stone MD Work Phone: [facility]06-06-2023 10:19-0400Heart gzgd430 /Kieran Stone MD Work Phone: [facility]06-06-2023 10:19-0400Respiratory rate 16 /Kieran Stone MD Work Phone: [facility]06-06-2023 10:19-7477ZpU6% (BldA) [Mass fraction]95 %Wallace Stone MD Work Phone: [facility]06-06-2023 10:19-0400Systolic blood iepfeuhi340 mm[Hg]Wallace Stone MD Work Phone: [facility]03-29-2023 14:00-0400Body wjveya320.94 cmMillie Jonesevelia Other [facility] [employer] Other 03-29-2023 14:00-0400Body mass index (BMI) [Ratio] 35.71 kg/e6NyrxhkMillie Storm Other [facility] [employer] Other 03-29-2023 14:00-0400Body pmlgbphqlez83.6 [degF]Millie Storm [facility] Other 03-29-2023 14:00-0400Body .73 kgMillie Storm Other [place] [employer] Other 03-29-2023 14:00-0400Diastolic blood fydeejvt16 mm[Hg] Millie Storm Other [facility] Other 03-29-2023 14:00-0988PkU2% (BldA) [Mass fraction]93 % Millie Storm Other [facility] [employer] Other 03-29-2023 14:00-0400Systolic blood txpycidf302 mm[Hg] Millie Storm Other [facility] [employer] Other 03-21-2023 11:53-0400Diastolic blood rqbwpypo72 mm[Hg] MD Mateus Perry Work Phone: [facility]03-21-2023 11:53-0400 Heart rate67 /minMD Mateus Perry Work Phone: [facility]03-21-2023 11:53-0400 Respiratory rate16 /minMD Mateus Perry Work Phone: [facility]03-21-2023 11:53-0400 SaO2% (BldA) [Mass fraction]94 %MD Mateus Perry Work Phone: [facility]03-21-2023 11:53-0400 Systolic blood shhqfkji732 mm[Hg]MD Mateus [place] Phone: [facility]03-21-2023 09:13-0400 Body ydarho349.94 cmMD Mateus Perry Work Phone: [facility]03-21-2023 09:13-0400 Body .64 kgMD Mateus Perry Work Phone: [facility]03-15-2023 11:00-0400 Body mgujee079.94 cmChristiano Gonzales Other [facility] [employer] Other 03-15-2023 11:00-0400Body yakiazwkdsl21.8 [degF] Christiano Gonzales Other [employer] [employer] Other 03-15-2023 11:00-0400Diastolic blood tmfollpv27 mm[Hg] Christiano Gonzales Other [facility] [employer] Other 03-15-2023 11:00-7803YbV6% (BldA) [Mass fraction]96 % Christiano Gonzales Other [facility] [employer] Other 03-15-2023 11:00-0400Systolic blood lsryuvav128 mm[Hg] Christiano Gonzales Other [employer] [employer] Other 03-01-2023 13:44-0500Body oeiqkr043.9 cmWallace Stone MD Work Phone: [facility]03-01-2023 13:44-0500Body temperature 97.11 [degF]Wallace Stone MD Work Phone: [facility]03-01-2023 13:44-0500Body kcahry49.73 kgWallace Stone MD Work Phone: [facility]03-01-2023 13:44-0500Diastolic blood uryyumtw97 mm[Hg]Wallace Stone MD Work Phone: [facility]03-01-2023 13:44-0500Heart rate66 /min Wallace Stone MD Work Phone: 1(114)436-87[facility]03-01-2023 13:44-0500Respiratory rate 18 /minWallace Stone MD Work Phone: 1(362)1684[facility]03-01-2023 13:44-8812TlS0% (BldA) [Mass fraction]100 %Wallace Stone MD Work Phone: 1(361)[address] [place], [place] 7405003-01-2023 13:44-0500Systolic blood hlmwezew183 mm[Hg]Wallace Stone MD Work Phone: 1(928)[address] [place], [place] 0190601-12-2023 11:24-0500Body elvhbi662.9 cmWallace Stone MD Work Phone: 1(922)[facility] [place], [place] 7405001-12-2023 11:24-0500Body temperature 97.81 [degF]Wallace Stone MD Work Phone: 1(123)[address] [place], [place] 0190601-12-2023 11:24-0500Body .82 kgWallace Stone MD Work Phone: 1(451)[address] [place], [place] 4788401-12-2023 11:24-0500Diastolic blood xmlepktz02 mm[Hg]Wallace Stone MD Work Phone: 1(194)[address] [place], [place] 7405001-12-2023 11:24-0500Heart rate70 /min Wallace Stone MD Work Phone: 1(780)[phone]01-12-2023 11:24-0500Respiratory rate 16 /minWallace Stone MD Work Phone: 1(987)071-88[facility]01-12-2023 11:24-4869DpV1% (BldA) [Mass fraction]94 %Wallace Stone MD Work Phone: [facility]01-12-2023 11:24-0500Systolic blood kzgfmykh557 mm[Hg]Wallace Stone MD Work Phone: [facility]12-30-2022 15:06-0500Blood Pressure LocationMichael NILL [facility] Wtuivqvo58-37-0376 15:06-0500Diastolic blood afyinrks72 mm[Hg]Iliana NILL [facility] Iggtforh74-92-3281 15:06-0500Heart rate 68 /minMichael NILL [facility] Ixjdhuqs45-17-5176 15:06-0500 Respiratory rate16 /minMichael NILL [facility]12-30-2022 15:06-0500Systolic blood hijxdmla946 mm[Hg]Iliana NILL [facility] Fbhegmyi81-94-0705 12:00-2579RuC3% (BldA) [Mass fraction]95 %Emma Plunkett MD Work Phone: [facility]10-18-2022 11:50-0400Body amgxpvlphol62.3 [degF]Emma Plunkett MD Work Phone: [facility]10-18-2022 11:50-0400Diastolic blood rddpklam21 mm[Hg]Emma Plunkett MD Work Phone: [facility]10-18-2022 11:50-0400Heart rate69 /Terese Plunkett MD Work Phone: [facility]10-18-2022 11:50-0400 Respiratory rate16 /Terese Plunkett MD Work Phone: [facility]10-18-2022 11:50-0400Systolic blood mm[Hg]Emma Plunkett MD Work Phone: [facility]10-18-2022 07:36-0400Body pofbas504.9 cmCjameel Plunkett MD Work Phone: [facility]10-18-2022 07:36-0400Body mass index (BMI) [Ratio]34.58 kg/z3AiafxszpzpwEmma Plunkett MD Work Phone: [facility]10-18-2022 07:36-0400Body yogzmy94.01 kgEmma Plunkett MD Work Phone: [facility]04-04-2022 15:45-0400Body cqccvkkiwoo26 [degF]Emma Plunkett MD Work Phone: [facility] 15:45-0400Diastolic blood mm[Hg]Emma Plunkett MD Work Phone: [facility] HospitalKkqbag60-33-8031 15:45-0400Heart rate65 /min Emma Plunkett MD Work Phone: [facility] HospitalFlnjls38-88-8415 15:45-0400Respiratory rate14 /minEmma Plunkett MD Work Phone: [facility] HospitalRoymjn29-66-4621 15:45-9037LeS9% (BldA) [Mass fraction]94 %Emma Plunkett MD Work Phone: [place] [address]Cbtntf67-01-5158 15:45-0400Systolic blood miighagk216 mm[Hg]Emma Plunkett MD Work Phone: [phone]([phone] [address]Jucbzv81-30-0245 09:46-0400Body iyucuu127.9 cm Emma Plunkett MD Work Phone: [facility] HospitalQttgqt12-23-9155 09:46-0400Body mass index (BMI) [Ratio]36.09 kg/j1UefttvcpkrgEmma Plunkett MD Work Phone: [facility] HospitalIdddvc70-58-1204 09:46-0400Body zognmp29.64 kg Emma Plunkett MD Work Phone: [facility] HospitalSqgxgd77-28-0908 14:46-0400Body ivsfks730.[address]03-28-2022 14:46-0400Body mass index (BMI) [Ratio]36.09 kg/m2 [address]03-28-2022 14:46-0400Body odavgjqtkga32.4 [degF][address]03-28-2022 14:46-0400Body xltica02.[address]03-28-2022 14:46-0400Diastolic blood sgmfemqn76 mm[Hg][address]03-28-2022 14:46-0400Heart rate62 /minSt[address]03-28-2022 14:46-0400Respiratory rate20 /minStv28 [address] StreetVrobxk73-04-5777 14:46-6264PnG6% (BldA) [Mass fraction]97 %[address]03-28-2022 14:46-0400Systolic blood tlrswupc625 mm[Hg][address]10-05-2021 10:14-0400Body bfyzoetdrfj58.81 [degF]Kin Abarca MD Work Phone: [facility] Work Phone: 1(660) 503-150310-05-2021 10:14-0400Diastolic blood mm[Hg] Kin Abarca MD Work Phone: [facility] Work Phone: 1(829) 873-152410-05-2021 10:14-0400Heart rate61 /Rosalva Abarca MD Work Phone: [facility] Work Phone: 1(844) 597-968010-05-2021 10:14-0400Respiratory rate14 /Rosalva Abarca MD Work Phone: [facility] [employer] Work Phone: 1(456) 928-127110-05-2021 10:14-6143UbX1% (BldA) [Mass fraction]96 % Kin Abarca MD Work Phone: [facility] [place] Work Phone: 1(827) 644-472710-05-2021 10:14-0400Systolic blood jqpybtbv600 mm[Hg] Kin Abarca MD Work Phone: [facility] [place] Work Phone: 1(754) 919-114010-05-2021 08:24-0400Body .9 Dharmesh Abarca MD Work Phone: [facility] [place] Work Phone: 1(259) 188-349910-05-2021 08:24-0400Body mass index (BMI) [Ratio] 34.96 kg/m2Kin Abarca MD Work Phone: [facility] [place] Work Phone: 1(474) 627-897110-05-2021 08:24-0400Body mntbki42.92 kgKin Abarca MD Work Phone: [facility] [place] Work Phone: 1(619) 211-828809-01-2021 12:53-0400Body zpehzp348.9 cmStvz [facility] [employer] Work Phone: 1(467) 687-141509-01-2021 12:53-0400Body mass index (BMI) [Ratio] 35.52 kg/m2Stvz [facility] [employer] Work Phone: 1(139) 419-987409-01-2021 12:53-0400Body zyitmrowggm82.8 [degF]Stvz 1 [facility] [place] Work Phone: 1(619) 894-147009-01-2021 12:53-0400Body xeztyz26.28 kgStvz [facility] [employer] Work Phone: 1(921) 283-415009-01-2021 12:53-0400Diastolic blood bkjkpozo27 mm[Hg] Stvz [facility] [employer] Work Phone: 1(185) 811-307509-01-2021 12:53-0400Heart rate57 /minStvz 1[facility] [place] Work Phone: 1(507) 366-218609-01-2021 12:53-0400Respiratory rate18 /minStvz 1 [facility] [employer] Work Phone: 1(496) 523-280109-01-2021 12:53-3527MzX2% (BldA) [Mass fraction]96 % Stvz [facility] [employer] Work Phone: 1(221) 585-878209-01-2021 12:53-0400Systolic blood jdpsfetp452 mm[Hg] Stvz [facility] [employer] Work Phone: Encounters Encounter DateEncounter TypeCare ProviderFacilityStart: 07-18-2025 End: 82-82-4939qrglkicibwPquplerJefferson Farmer MDFacility: [place] Start: 70-80-5111csvinlhzhzPTUK [facility]: 07-14-2025 End: 40-11-7141lvpomiflyhAonlzzg M Hoy MD Work Phone: -[facility] BellevueStart: 07-14-2025 End: 58-94-3045Mxbpzjm encounter procedureJujudy Cutler DO-[facility] [place] Work Phone: Start: 07-03-2025 End: 25-61-4817Ywbeif Pavithra Hensley DPM Work Phone: [facility] CI PODIATRYStart: 07-03-2025 End: 17-28-8961Fzlnlo Pavithra Hensley DPM Work Phone: [facility] CI PODIATRYStart: 07-03-2025 End: 08-15-7517Qcssyi outpatient visit 10 minutesNicdayana Hensley DPM Work Phone: [facility] CI PODIATRYComment on above:Neoplasm of uncertain behavior of skin (Primary Dx); Diabetes mellitus due to underlying condition with diabetic polyneuropathy, 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); Pain due to onychomycosis of toenails of both feet; Venous insufficiency; Acquired deformity of left toeStart: 07-03-2025 End: 04-94-2391qlkufivvrtFFDYWOLN A BROWNNot AvailableStart: 06-18-2025 ambulatoryBLAIR GRUBBUniBlanchard Valley Health System [facility] Hospitaltart: 06-03-2025 End: 83-30-6361Rdfmjji encounter procedureChristiano Mcdonnell MD-Lab [address] Work Phone: Start: 06-03-2025 End: 23-40-2947jvuqdcbxptSujlbfc M Hoy MD Work Phone: [facility] Work Phone: Start: 98-61-9921wypwwrkspwUXZDEMarion Hospitaltart: 03-04-2025 End: 89-68-8270rqgcmpgdhaLqqglte MorrowFacility:[facility] Centertart: 33-07-0696wzpbshdnydJNFXK[facility]tering Health [facility] Start: 01-30-2025 End: 52-60-5438yaofiauqgcGKMUADJX A BROWNNot AvailableStart: 01-21-2025 End: 06-78-5230yotafhwurnCRWTProMedica Memorial Hospitaltart: 31-43-2569hysyszvueiBXIKProMedica Memorial Hospitaltart: 01-07-2025 End: 61-59-2209Lgnxkva encounter Hardik Perry MD Work Phone: [facility]-[address] Work Phone: Start: 01-07-2025 End: 38-39-3922mxvwcyztfcDegkcnk M Hoy MD Work Phone: [facility] Work Phone: Start: 20-65-9312ghryhichiuTZAYUniversity Hospitals Cleveland Medical Centertart: 12-10-2024 End: 19-50-9181Ujthpyw encounter procedureMateus Perry MD Work Phone: [facility]-[address] Work Phone: Start: 12-10-2024 End: 45-05-8913dqxtludmglSpsugli M Hoy MD Work Phone: [facility] Work Phone: Start: 11-21-2024 End: 04-85-3475Cxasja outpatient visit 15 minutesNicdayana Hensley DPM Work Phone: n[facility] CI PODIATRYComment on above:Neoplasm of uncertain behavior of skin (Primary Dx); Diabetes mellitus due to underlying condition with diabetic polyneuropathy, 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 senior care insulin use ([facility]); Pain due to onychomycosis of toenails of both feet; Venous insufficiency; 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 ([facility])Start: 11-21-2024 End: 42-43-6187kolagkoojyOEKGKIUB A BROWNNot AvailableStart: 11-21-2024 End: 70-84-2233Uxaycm flowsMadeleine Hensley DPM Work Phone: [facility] CI PODIATRYStart: 11-21-2024 End: 41-10-5627Mpsfxfricardo Hensley DPM Work Phone: [facility] CI PODIATRYStart: 84-13-4515hlocejtabhZQAVCleveland Clinic Medina Hospitaltart: 28-26-4869fwswuiisxmPTPMWVUMedicine Harrison Community Hospitaltart: 11-05-2024 End: 33-12-5830awrliawylnIVKSUniversity Hospitals Cleveland Medical Centertart: 10-29-2024 End: 43-12-8872Qrejqal encounter Hardik Perry MD Work Phone: [facility] [address] Work Phone: Start: 10-29-2024 End: 74-95-6219gududdudkoHjqnmkn M Hoy MD Work Phone: [facility] Work Phone: Start: 65-22-9821woqeggpsdnCIOC [facility]tart: 10-09-2024 End: 86-81-9463Dcskkxjgo encounterAdajayme Ashton MD Work Phone: Hematology/OncologyStart: 10-08-2024 End: 68-21-7225Wtgsfm outpatient visit 25 minutesAdarsdarian Ashton MD Work Phone: Hematology/OncologyComment on above: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, estrogen receptor positive (HCC) (Primary Dx); Stage 3a chronic kidney disease (HCC)Start: 10-08-2024 End: 49-97-2869zwudyoumtkSOWLLNI M HOYFacility:[facility] Hospitaltart: 10-04-2024 End: 88-02-7530Bpycoibly encounterFelicelen Sandoval RNHematology/OncologyComment on above:Patient Question; Appointment; OrdersStart: 09-24-2024 End: 14-53-0559edgeywtwbuSFNEProMedica Memorial Hospitaltart: 78-58-3909maizwsrqbeEUVFProMedica Memorial Hospitaltart: 32-96-8366hbmjcnhddiHHGIProMedica Memorial Hospitaltart: 37-91-1483wcgwmpwaneYEBZProMedica Memorial Hospitaltart: 89-23-6306Oemthfnsf for preprocedural cardiovascular examinationPAOhio Valley Surgical Hospitaltart: 17-10-0884Jml-patient / Non-visit Mateus Perry MD Work Phone: [facility] Work Phone: Start: 06-66-4560agvspyglaeQVXR [facility] Hospitaltart: 08-29-2024 End: 54-06-1602Nfbdgt Pavithra Hensley DPM Work Phone: [facility] CI PODIATRYStart: 08-29-2024 End: 21-00-0140Mecfhericardo Hensley DPM Work Phone: [facility] CI PODIATRYStart: 08-29-2024 End: 90-79-3268Tlzzzb outpatient visit 15 minutesPeyman Hensley DPM Work Phone: [facility] CI PODIATRYComment on above: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) (Primary Dx); Diabetes mellitus due to underlying condition with diabetic polyneuropathy, 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 (CMS/HCC); Pain due to onychomycosis of toenails of both feet; Venous insufficiency; Neoplasm of uncertain behavior of skinStart: 08-29-2024 End: 35-34-8836btaxbbvmebGGEVOFSY A BROWNNot AvailableStart: 08-27-2024 End: 76-37-1274vcyrjlvhadKOHGMercy Health Allen Hospitaltart: 24-28-5323kgpwgqkbmxILRLMercy Health Allen Hospitaltart: 08-12-2024 End: 37-24-1421vblulymzbmMHIEMercy Health Allen Hospitaltart: 06-20-2024 End: 72-79-1383Njrvcx Pavithra Hensley DPM Work Phone: [facility] CI PODIATRYStart: 06-20-2024 End: 63-37-1442Eyixji Pavithra Hensley DPM Work Phone: n[facility] CI PODIATRYStart: 06-20-2024 End: 70-99-6286Ounobu outpatient new 30 minutesPeyman Hensley DPM Work Phone: noms CI PODIATRYComment on above:Hav (hallux abducto valgus), left (Primary Dx); Venous insufficiency; Acquired deformity of left toe; 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); Diabetes mellitus due to underlying condition with diabetic polyneuropathy, 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 senior care insulin use (CMS/HCC); Pain due to onychomycosis of toenails of both feetStart: 05-01-2024 End: 94-30-8001ydduioptgcBJ Mateus M Hoy Work Phone: [facility] Work Phone: Start: 05-01-2024 End: 50-30-0437Mipdqcq encounter procedureMD Mateus Hoy Work Phone: [facility] Vascular Surgery Work Phone: Start: 04-24-2024 End: 35-75-1319qcblrhqsfbGW Mateus M Hoy Work Phone: [facility] Work Phone: Start: 04-24-2024 End: 36-75-5570Ayrguecadp RecurringMD Mateus Hoy Work Phone: [facility] [place] Work Phone: Start: 04-09-2024 End: 67-73-1722tzpvennxtbCF Mateus M Hoy Work Phone: [facility] Work Phone: Start: 04-09-2024 End: 13-15-8026Kaozzjz encounter procedureMD Mateus Hoy Work Phone: [facility]-Ultrasound [place] Work Phone: Start: 35-43-4680Wtivjbcyaj RecurringMD Mateus Hoy Work Phone: [facility]-Wound Care [place] Work Phone: Start: 06-20-2023 End: 86-19-0472adoqrdnultVkwrn M Musser PA-C Work Phone: Hematology/OncologyComment on above: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, estrogen receptor positive (HCC) (Primary Dx); Stage 3a chronic kidney disease (HCC)Start: 06-20-2023 End: 11-27-9102Ywfboeh encounter procedureWinnie Farris PA-C Work Phone: SANDUSKYStart: 06-01-2023 End: 70-67-4553soctpkhkvsGpxvpwy [place] Other noSubtext Other Start: 12-94-8534Avqcyx outpatient visit 15 minutes Christiano MarreroOscar Vascular SurgeryStart: 04-06-2023 End: 62-35-8391ikdijrvulkPXTESQL M HOTriHealth Bethesda Butler Hospitalmodesta [facility] Centertart: 03-09-2023 End: 94-93-9242rntmndumnlQbnlec Ruttino Other Terviu Other Start: 39-29-1778Uyylgfb encounter procedureJackie RuttinoFPG Vascular SurgeryStart: 03-06-2023 End: 49-43-7517qqjkhzhgqbAJGFZIBNMHZ LUTMAN [facility] Start: 02-14-2023 End: 33-74-8355tdrjunffejJxgejDeyvi Stone MD Work Phone: Hematology/OncologyComment on above: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, estrogen receptor positive (HCC) (Primary Dx); Rash; Other eczema; Stage 3a chronic kidney disease (HCC)Start: 02-14-2023 End: 41-87-4772Rqhowjj encounter Gita Stone MD Work Phone: SANDUSKYStart: 01-19-2023 End: 21-12-8110pbngynutemAY DOUGLAS HOY .Facility:H5Grfmp: 12-08-2022 End: 30-90-1583azpljjbccfJyizml Ruttino Other noIsmole [employer] Other Start: 94-11-0791Tyfpsbmde encounterJackie RuttinoFPG Vascular SurgeryStart: 12-07-2022 End: 62-61-8430xtkpatrgjqHprykl Ruttino Other [employer] Other Start: 11-31-8630Msxffwh encounter procedureJackie RuttinoFPG Vascular SurgeryStart: 11-29-2022 End: 95-87-0039Rjxcynwyn to same day surgery center Mateus Perry Work Phone: [facility]-Interventional Radiology Work Phone: Start: 11-29-2022 End: 39-09-7847zxtvnrcmiyUB Mateus Perry Work Phone: [facility] Work Phone: Start: 11-24-2022 End: 38-96-8197kkxkhvywgrEECLNZ [facility] Centertart: 11-24-2022 End: 72-51-6307Zvdgxmwptu hospital visit by physicianMateus Perry MD Work Phone: stvZ [place] LAB DOCTORStart: 11-23-2022 End: 36-95-4586qonahywjnqEkhrybn [place] Other [place] [employer] Other Start: 86-36-9008Rjevyq outpatient new 60 minutes Christiano GonzalesFPG Vascular SurgeryStart: 11-22-2022 End: 81-34-2085kaksmvgqcvGhiblvd R NILLFacility:NICK BellevueStart: 11-16-2022 End: 93-82-3783zpnphdmtckIU MATEUS PERRY .Facility:L1Qksdg: 11-09-2022 End: 32-61-2601kxmllalfxvSgoih Karamlou MD Work Phone: Hematology/OncologyComment on above: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, estrogen receptor positive (HCC) (Primary Dx); Claudication in peripheral vascular disease (HCC)Start: 11-09-2022 End: 58-33-0435Eudwqet encounter procedureWallace Stone MD Work Phone: SANDUSKYStart: 21-82-4907Tojzftfmq encounterWallace Stone MD Work Phone: Cancer Appts MCComment on above:Referral Information (Vascular Consult)Start: 11-08-2022 End: 53-83-9405qzsueeechlHkunstc R NILLFacility:[facility] Hospitaltart: 11-08-2022 End: 55-94-8334Rvmximr encounter procedureMichael R NILL General Surgery Nill/Said [place] Start: 11-04-2022 End: 72-93-2445xdgnahpygiBdokbhq R NILLFacility:[facility] Hospitaltart: 11-04-2022 End: 04-20-8389Lhahqkx encounter procedureMichael R NILL General Surgery Nill/Said [place] Start: 11-02-2022 End: 77-51-4142dnpnfqqdbkWN MATEUS PERRY .Facility:S7Pgkzi: 10-25-2022 End: 77-46-2739gaqpmpuvzsAjilwsk R NILLFacility:[facility] Hospitalrt: 10-25-2022 End: 63-41-0844Zmarrvb encounter procedureMichael R NILL General Surgery Nill/Said [place] Start: 10-19-2022 End: 96-20-5106fchaefbgnaPU ILIANA GAGNON .Facility:K7Cyaky: 48-19-2610afpzxwiydy DR ILIANA GAGNON .Facility:F1Teuxi: 97-61-0804Ijqxfyptr for preprocedural laboratory examinationDR ILIANA BatresPike Community Hospitaltart: 10-11-2022 End: 50-72-4985biejpgxisiRS MICHAEL NILL .Facility:A5Ezqjw: 10-11-2022 End: 63-41-3720Tbfkuxtce for preprocedural laboratory examinationDR ILIANA GAGNON .Facility:C7Hxicd: 09-30-2022 End: 99-09-0174eevmjnoxnvLV DOUGLAS HOY .Facility:L3Mvbww: 31-17-1212Xbuaesfgy encounterHeavenly Wilkerson RN Work Phone: Hematology/OncologyComment on above:Care Coordination (Surgery update)Start: 09-22-2022 End: 20-25-1824ojwpstpabpSbnjuDeyvi Stone MD Work Phone: Hematology/OncologyComment on above: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, estrogen receptor positive (HCC) (Primary Dx)Start: 09-22-2022 End: 68-63-1373Ukctwda encounter Gita Stone MD Work Phone: SANDUSKYComment on above:Malignant neoplasm of upper- outer quadrant of right breast in female, estrogen receptor positive (HCC) (Primary Dx)Start: 09-21-2022 End: 04-42-7000acwwjddakoCL MATEUS HOY .Facility:D3Qozsk: 14-59-9590Srili abstractKrishna Stone MD Work Phone: Hematology/OncologyStart: 09-16-2022 End: 73-54-4524dkxvdvxyjlVT DOCTOR MISCFacility:Q0Enwvv: 09-09-2022 End: 61-47-4215ipjeaflpztMgnotiv R NILLFacility: BellevueStart: 09-09-2022 End: 73-27-3994Ixyryap encounter procedureMichael R NILL General Surgery Nill/Said [place] Start: 55-78-3497qlanimphnkAH MATEUS HOY .Facility:H1 Start: 08-23-2022 End: 23-03-6203uvynusnodmLO MATEUS HOY .Facility:D3Zntzd: 17-67-9260qfxjrdulsq Iliaan R NILLFacility: BellevueStart: 08-19-2022 End: 80-99-1414vcpmqynbpdNW MATEUS HOY .Facility:H0Phdbm: 08-14-2022 End: 52-75-9172rnmbibmknqQT MATEUS HOY .Facility:L2Kpnxo: 08-11-2022 End: 93-20-7959wehxghsbyaSE MATEUS HOY .Facility:P9Hnkzb: 08-08-2022 End: 69-80-1086xybkehsqgjFD MATEUS HOY .Facility:G1Yismu: 08-02-2022 End: 32-45-0791mwldomtbueZZ MATEUS HOY .Facility:A6Kfkoy: 07-19-2022 End: 75-03-8330enffbpczooLY MATEUS HOY .Facility:Q3Lgckf: 06-28-2022 End: 63-35-2041Yuhvtamgcy hospital visit by Shanti Garza MD Work Phone: stvz ORComment on above:Vaginal dysplasiaStart: 06-22-2022 End: 58-69-7361xwckplgpuiVXIUORX TUCKERFacility:V9Hwksn: 79-32-4751jzfsekrfhs SONALI TUCKERFacility:B9Qkwwv: 04-12-2022 End: 32-83-8375lmnoefamwfKQIFAHF TUCKERFacility:U5Qxiow: 03-17-2022 End: 74-89-2134bwkvloqhmzCU MATEUS HOY .Facility:L3Yvgat: 03-16-2022 End: 75-92-9421dvvdddfqhfIR MATEUS HOY .Facility:A7Nowjs: 03-15-2022 End: 57-95-4930osjcpjjuygLBVKBLA TUCKERFacility:I5Dvdbt: 02-15-2022 End: 12-14-7424wrdxrqhxxsGMWBHUS TUCKERFacility:D7Xbunf: 02-09-2022 End: 88-54-2905rsbevepeayGUJCUYI TUCKERFacility:P9Dksuq: 12-13-2021 End: 87-40-5234Jylepdutnx hospital visit by Shanti Garza MD Work Phone: stvz ORComment on above:Post-operative state (Primary Dx)Start: 12-06-2021 End: 31-02-3912Wkaqgslgpc hospital visit by physicianSyao [facility] RadiologyComment on above:ArrivedStart: 12-06-2021 End: 86-26-5688Tqobqjx encounter statusStvsandra 2STVZ Pre-Admit TestingStart: 12-06-2021 End: 41-24-7569Gtntenhnuh hospital visit by physicianSruiz Hendrix 2STVZ Pre-Admit TestingComment on above:Pre-op chest examStart: 06-15-2021 End: 90-05-9537Cfezduxlkl hospital visit by Wallace Abarca MD Work Phone: stVZ ORStart: 05-12-2021 End: 13-53-3565Dvzawxmbsb hospital visit by Francisco Hendrix [facility] RadiologyComment on above:ArrivedStart: 05-12-2021 End: 09-17-4882Xjoylst encounter statusStvz 1STVZ Pre-Admit TestingStart: 05-12-2021 End: 33-96-2062Lixdqzuiek hospital visit by physicianSruiz Hendrix 1STVZ Pre-Admit TestingComment on above:Pre-op chest exam Procedures DateProcedureProcedure DetailPerforming ClinicianStart: 81-02-2863Z-ray of lumbar spine, two or three viewsMateus Perry MD Work Phone: Start: 41-72-5990Afozw x-ray of pelvis and lower extremityMateus Perry MD Work Phone: [phone]-art: 40-12-1394Q-ray of both knees, two viewsMateus Perry MD Work Phone: Start: 95-05-2689Wahkz brachial pressure indexMD Mateus Hoy Work Phone: [phone]: 14-13-9916Woedzg scan of lower limb veinsMD Mateus Hoy Work Phone: Start: 79-25-1503EsxjmcsmqrIE Mateus Hoy Work Phone: [phone]-art: 78-09-8522Qzqeftnkgm of right breastMichael NILL Start: 16-48-3937Pgzmlsa blood reagent stripChristopher Kayla CARDONA Work Phone: Start: 17-05-8924XVMKNVW, IONIC (POC)Emma Garza MD Work Phone: Start: 12-80-5217Awlwaxjr [Moles/volume] in Serum or PlasmaChosmintopher Kayla CARDONA Work Phone: Start: 37-91-3176RBYGERWFNL W/GFR POINT OF CARE Emma Graza MD Work Phone: Start: 65-86-0546Gvha bld gluc mntr dev cleared fda spec home useChosmintopher Kayla CARDONA Work Phone: Start: 32-04-4441WVNIFN ACID,POINT OF CAREEmma Garza MD Work Phone: Start: 14-13-7444Ueaadctqk [Moles/volume] in Serum or PlasmaChristopher Kayla CARDONA Work Phone: start: 11-85-7572Hdqirk [Moles/volume] in Serum or PlasmaSamueltopher Kayla CARDONA Work Phone: Start: 75-44-4480Mub routine ecg w/least 12 lds w/i&r Jimy Remy MD Work Phone: Start: 98-41-5307Onvp bld gluc mntr dev cleared fda spec home useEmma Garza MD Work Phone: Start: 87-63-9644Dhunthdxz [Moles/volume] in Serum or PlasmaEmma Garza MD Work Phone: Start: 29-97-7267Iexbnkft screenStvz 2Start: 06-15-3589Lwjyl of magnesiumAlyssa Kimmie PA-C Work Phone: Start: 63-56-5658Yotvsvmkws exam chest 2 viewsAlyssa Kimmie PA-C Work Phone: Start: 03-55-9963Lcy routine ecg w/least 12 lds i&r onlyAlyssa Kimmie PA-C Work Phone: Start: 42-06-7096Pjzoa typing serologic aboAlyssa Kimmie PA-C Work Phone: Start: 06-15-2021H/O: surgeryS/p Partial vaginectomy with Ultrasonic Scalpel 06/15/21Eric Nikolai Abarca MD Work Phone: Start: 69-26-7646Xylogfj blood reagent stripEric Nikolai Abarca MD Work Phone: Start: 84-90-6290OSKVLNBAIS W/GFR POINT OF CAREEric Nikolai Abarca MD Work Phone: Start: 54-81-0617Qakn bld gluc mntr dev cleared fda spec home useEric Nikolai Abarca MD Work Phone: Start: 81-13-5056Zivyvedpz [Moles/volume] in Serum or PlasmaKin Abarca MD Work Phone: Start: 1942TIBYA METABOLIC PANEL W/ REFLEX TO MG FOR LOW KAlyssa Kimmie PA-C Work Phone: Start: 71-79-0500Mgjbl count complete auto&auto difrntl wbcAlyssa Kimmie PA-C Work Phone: Start: 86-02-1998Pajmgxcrrk exam chest 2 viewsAlyssa Kimmie PA-C Work Phone: Start: 70-31-2036Qov routine ecg w/least 12 lds i&r onlyAlyssa Kimmie PA-C Work Phone: Start: 46-45-1304Jnylxupk screenComment on above: Performed By: #### [id number] #### [address] [place] [address], USAStart: 24-46-5178Bzapyey of placement of stent for coronary artery [...] Plan of Treatment DateCare ActivityDetailAuthorStart: 07-03-2025 End: 20-10-6847Lhixnlj encounter qnvihufqd51/23/2025 1:50 PM EDT Office Visit [facility] [address] [facility] [address] [place] [address] Peyman Hensley DPM [address] [facility] 5 [place] [address] Diabetes mellitus due to underlying condition with diabetic polyneuropathy, 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 senior care insulin use (HCC) (Primary Dx); Pain due to onychomycosis of toenails of both feet; Venous insufficiency; Acquired deformity of left toe; Neoplasm of uncertain behavior of skinNOMS CI PODIATRYComment on above:Diabetes mellitus due to underlying condition with diabetic polyneuropathy, 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) (Primary Dx); Pain due to onychomycosis of toenails of both feet; Venous insufficiency; Acquired deformity of left toe; Neoplasm of uncertain behavior of skinStart: 20-53-8604Sfwhcqsst vaccination Influenza Vaccine (#1)[facility] HealthcareStart: 04-08-2025 End: 30-58-0198Nvloio-up qblrgamnj32/29/2025 1:30 PM EDT Visit (SP) Office Hematology/Oncology [address] [place] [address] [address] [place], [place] [phone] Vaibhav Ashton MD [address] [facility] [place] [address] 6 month follow upHematology/OncologyComment on above:6 month follow upStart: 04-08-2025 End: 72-60-8191Hgdclit encounter aiziklhal53/29/2025 1:[address]T Office Visit [facility] [address] [place] [address] labsNortCorewell Health [facility]ber Hospital LaboratoryComment on above:labsStart: 11-21-2024 End: 70-54-5062Xtisadl encounter bvomwqqld03/13/2025 2:40 PM EDT Office Visit [facility] [address] [place] [phone] Peyman Hensley DPM [address] [address] Diabetes mellitus due to underlying condition with diabetic polyneuropathy, 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 (CMS/HCC) (Primary Dx); Pain due to onychomycosis of toenailsof both feet; Venous insufficiency; Neoplasm of uncertain behavior of skin; 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)N[facility] CI PODIATRYComment on above:Diabetes mellitus due to underlying condition with diabetic polyneuropathy, 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 senior care insulin use (CMS/HCC) (Primary Dx); Pain due to onychomycosis of toenails of both feet; Venous insufficiency; Neoplasm of uncertain behavior of skin; 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)Start: 11-07-2024 End: 00-16-6241Ytugubm encounter aalxxntqg22/27/2025 10:00 AM EST Office Visit [facility] [address] [place] [phone] Peyman Hensley DPM [address] [address] N[facility] CI PODIATRYStart: 13-05-7815TtyxllrokSouthview Medical Centertart: 10-08-2024 End: 79-42-0331Uxvgsgoyb (Vitamin B12) [Mass/volume] in Serum or PlasmaMercy Health Perrysburg HospitalComment on above:Expected: 10/08/2024, Expires: 01/07/2025Start: 10-08-2024 End: 23-49-6812Xttnnrcj [Mass/volume] in Serum or PlasmaMercy Health Perrysburg Hospital [facility] Work Phone: comment on above:Expected: 10/08/2024, Expires: 01/07/2025Start: 10-08-2024 End: 13-68-2903Nevowi [Mass/volume] in Serum or PlasmaMercy Health Perrysburg HospitalComment on above:Expected: 10/08/2024, Expires: 01/07/2025Start: 10-08-2024 End: 04-87-1895Whwz and Iron binding capacity panel - Serum or PlasmaMercy Health Perrysburg HospitalComment on above:Expected: 10/08/2024, Expires: 01/07/2025Start: 10-08-2024 End: 19-38-5341bvtitqabnv29/28/2025 1:00 PM EST Visit (SP) Office Hematology/Oncology [address] [place] [address] [address] [place], [place] [phone] Vaibhav Ashton MD [address] [place] [address] [place] [address] AAMIR from [facility] wanted to transfer to [place] Hematology/OncologyComment on above:AAMIR from [facility] wanted to transfer to [facility]: 10-08-2024 End: 96-20-6025Hdrlupv encounter ogfpgjljo65/28/2025 12:[address] EST Office Visit [facility] [address] [place] [address] [place] [address] AAMIR from [facility] transfer to [facility] LaboratoryComment on above:AAMIR from [facility] wanted to transfer to [facility]: 10-04-2024 End: 77-96-7079ZOP W Auto Differential panel - BloodCOMPLETE BLOOD COUNT AND DIFFERENTIAL Lab Routine 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, estrogen receptor positive (HCC) Expected: 10/04/2024, Expires: 01/03/2025 [facility] Work Phone: Comment on above:Expected: 10/04/2024, Expires: 01/03/2025Start: 10-04-2024 End: 91-97-6610Vbuhkuyzgaemc metabolic 2000 panel - Serum or PlasmaCOMPREHENSIVE METABOLIC PANEL Lab Routine 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, estrogen receptor positive (HCC) Expected: 10/04/2024, Expires: 01/03/2025[facility] ClinicComment on above:Expected: 10/04/2024, Expires: 01/03/2025Start: 54-41-0501Hjfpyke Directive DiscussionAdvance Directive DiscussionSouthern Ohio Medical Centertart: 08-29-2024 End: 92-87-7614Lanmozb encounter procedureNOMS CI PODIATRYComment on above: 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) (Primary Dx); Diabetes mellitus due to underlying condition with diabetic polyneuropathy, 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 (CMS/HCC); Pain due to onychomycosis of toenails of both feet; Venous insufficiencyStart: 92-00-5086Ggavukjraj/HematocritHemoglobin/Hematocrit [facility] Centertart: 58-81-8751Uvcxb CreatinineSerum CreatinineSouthern Ohio Medical Centertart: 61-52-1185Oayyb-19 Vaccine ( season)Covid-19 Vaccine ( season)[facility] Centertart: 82-84-1833Pxiulkyll vaccinationInfluenza Vaccine (#1)[facility] HealthcareStart: 92-09-1656FDMTTYWDYA/HEMATOCRIT HEMOGLOBIN/HEMATOCRITSouthern Ohio Medical Centertart: 74-25-8274EMDSK CREATININESERUM CREATININESouthern Ohio Medical Centertart: 06-16-2023 End: 74-85-3698GIU W Auto Differential panel - BloodCBC + DIFF Lab Routine 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, estrogen receptor pos itive (HCC) Expected: 06/16/2023 (Approximate), Expires: 08/16/2023[facility] Work Phone: Comment on above:Expected: 06/16/2023 (Approximate), Expires: 08/16/2023Start: 06-16-2023 End: 52-74-9696Tnygwiczjufju metabolic 1999 panel - Serum or PlasmaCOMP METABOLIC PANEL Lab Routine 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, estrogen receptor positive (HCC) Expected: 06/16/2023 (Approximate), Expires: 08/16/2023[facility] Work Phone: Comment on above:Expected: 06/16/2023 (Approximate), Expires: 08/16/2023Start: 48-58-2293Jecpi-19 Vaccine ()Covid- 19 Vaccine ()[facility] Centertart: 53-93-6534Almvzdavw vaccinationSouthern Ohio Medical Centertart: 04-12-2023 End: 17-78-7212Vokyiqj encounter vptyshubp98/02/2023 Office Visit Gynecologic Oncology Latonia Brush PA-C [address] [place] [address] [facility] Gynecologic Oncology ServicesStart: 02-09-2023 End: 61-05-2964MQW W Auto Differential panel - BloodCBC + DIFF Lab Routine 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, estrogen receptor pos itive (HCC) Expected: 02/09/2023 (Approximate), Expires: 04/11/2023[facility] Work Phone: Comment on above:Expected: 02/09/2023 (Approximate), Expires: 04/11/2023Start: 02-09-2023 End: 07-01-5207Bhlxmcmwxyjrp metabolic 2000 panel - Serum or PlasmaCOMP METABOLIC PANEL Lab Routine 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, estrogen receptor positive (HCC) Expected: 02/09/2023 (Approximate), Expires: 04/11/2023[facility] Work Phone: Comment on above:Expected: 02/09/2023 (Approximate), Expires: 04/11/2023Start: 01-40-0615Illygmqan monitoringPotassium monitoring [facility] HealthStart: 85-40-0580Ionwvmcejs measurementCreatinine monitoringMercy Health [facility] Hospital HealthStart: 29-75-7643Envmzbrdx monitoringPotassium monitoringMercy Health Start: 11-29-2022 End: 48-80-3983LkjnlflduSouthview Medical Centertart: 03-36-8867AEGFZZY DIRECTIVE DISCUSSIONADVANCE DIRECTIVE DISCUSSIONSouthern [place] Medical Centertart: 46-53-6334VGWRJRXNJE ASSESSMENTDEPRESSION ASSESSMENTSouthern Ohio Medical Centertart: 07-27-2022 End: 63-70-5169Koftxnr encounter evpwhlpwx69/16/2022 Office Visit Gynecologic Oncology Emma Garza MD [address] [facility] [address] [place] [address] [facility] Gynecologic Oncology Services Start: 06-28-2022 End: 81-37-9429OPCOQ VAGINAL CERVIX LESION EXCISION LASERVULVA VAGINAL CERVIX LESION EXCISION LASER Vaginal dysplasia 06/28/2022 9:04 AM [facility] Campustart: 18-88-4183Ljycwmjfpp measurementCreatinine monitoring [facility] Health Work Phone: start: 18-29-5003Nuaxwswzm monitoringPotassium monitoringMercy Health Work Phone: start: 22-13-4972Inkbmnitss measurementCreatinine monitoringMercy Health Work Phone: start: 36-20-5115Vmwubifzw vaccinationINFLUENZA (#1) [facility] Centertart: 12-96-6654Ptjgvmbja monitoringPotassium monitoringMercy Health Work Phone: start: 57-45-7947Nhfikdshi vaccinationFlu vaccine (#1) [facility]Start: 01-14-2022 End: 67-31-0838Skfuqki encounter zpejefwac87/06/2022 Office Visit Gynecologic Oncology Latonia Burks PA-C [address] [facility] [address] [place], [place] [id number] [facility] Gynecologic Oncology ServicesStart: 12-13-2021 End: 48-74-0833XKVKVEFMUCBIsvuoBluffton Hospitaltart: 12-13-2021 End: 12-85-3660Jioaqcbtk to same day surgery centerSTVZ ORComment on above: VAGINECTOMY, CYSTOSCOPYCYSTOSCOPY, VAGINECTOMYStart: 00-79-7660Ofspyswutp hospital visit by lfzzypics98/04/2022 Hospital Encounter IP Unit Emma Garza MD [address] [facility] [address] [place], [place] [id number] [facility] ORStart: 12-13-2021 End: 58-59-5360Cxzgdxbbdjj complete removal vaginal wallVAGINECTOMY VAGINAL DYSPLASIA, RULE OUT CANCER 12/13/2021 10:20 AM EDFlower Hospitaltart: 69-64-1189Zlkper Wellness Visit (AWV)Annual Wellness Visit (AWV) [facility]Start: 86-78-1390TBFBY-19 VACCINE (4 - Booster for Moderna series) COVID-19 VACCINE (4 - Booster for Moderna series)[facility]ertart: 07-01-2021 End: 21-50-5938Vendzsl encounter qssudbzcl74/21/2021 Office Visit Gynecologic Oncology Kin Abarca MD [address] [facility] [address] [place] [address] [phone] [facility] Gynecologic Oncology ServicesStart: 68-57-6303Psaygkrgq vaccinationFlu vaccine (#1)[facility] Work Phone: start: 70-96-0648XLUYS-19 Vaccine (3 - Booster for Moderna series)COVID-19 Vaccine (3 - Booster for Moderna series)[facility] Start: 75-21-8013Qttbyarhgc A1c smjqptccjpoXrV1CWikfcznim ClinicStart: 50-70-7348Niiyqryyzr A1c/Hemoglobin.total in TagfnCHL8VCmdsxpktu ClinicStart: 38-17-5378Bwpnbtxujbkk Vaccine: 50+ (2 of 2 - PCV)Pneumococcal Vaccine: 50+ (2 of 2 - PCV)[facility]: 03-46-8607Wbxdaacgoikn Vaccine: 65+ (2 - PCV) Pneumococcal Vaccine: 65+ (2 - PCV)[facility]: 96-70-9987Jleagkiagcah Vaccine: 65+ Years (2 of 2 - PCV)Pneumococcal Vaccine: 65+ Years (2 of 2 - PCV) [facility]: 32-06-4683LCZVCPRJPASC: 65+ (2 - PCV)PNEUMOCOCCAL: 65+ (2 - PCV)[facility]: 45-68-2910GVD Vaccine (1 - 1-dose 75+ series)RSV Vaccine (1 - 1-dose 75+ series)[facility]: 12-80-3692PWXK DENSITYBONE DENSITYSouthern [place] Medical Centertart: 03-68-4283Owai Density ScreeningBone Density ScreeningSumma Health Wad[facility] - [facility] Centerrt: 41-21-1691Chjsacnfebgn 65+ years Vaccine (1 - PCV)Pneumococcal 65+ years Vaccine (1 - PCV)ENIO B[facility]: 74-08-9684Xzjougqnpnim 65+ years Vaccine (1 of 1 - PPSV23)Pneumococcal 65+ years Vaccine (1 of 1 - PPSV23)[facility]: 95-57-0166Qpahpdgii for osteoporosisBone Density ScreeningSumma Health Wadsworth - Rittman Medical Centerrt: 29-50-8687Jhkvrksji B Vaccine (1 of 3 - Risk 3-dose series)Hepatitis B Vaccine (1 of 3 - Risk 3-dose series)[facility]: 31-23-5116Nwzthhnox for osteoporosisDEXA (modify frequency per FRAX score)[facility]: 26-79-4256Vvozcmvm Vaccine (1 of 2) Shingles Vaccine (1 of 2)[facility]: 94-15-9262MQHNOJAR VACCINE (1 of 2) SHINGRIX VACCINE (1 of 2)[facility]: 92-92-5433RQyP/Tdap/Td vaccine (1 - Tdap)DTaP/Tdap/Td vaccine (1 - Tdap)[facility]: 65-12-8686Ddmgq microalbumin profileSumma Health Wadsworth - Rittman Medical Centerrt: 16-91-8569HORTFR PCP TEAM CHRONIC DISEASE VISITANNUAL PCP TEAM CHRONIC DISEASE VISITSouthern [place] Medical Centertart: 89-61-0377Esoopxt ScreeningAnxiety ScreeningSouthern [place] Medical Centertart: 90-28-4339GH CONTROLLED (<130/80)BP CONTROLLED (<130/80)[facility]: 1958 Depression ScreeningDepression ScreeningSouthern [place] Medical Centertart: 1958 Hepatitis B surface antibody levelLDL CHOLESTEROLSouthern [place] Medical Centertart: 97-70-5652Boazwmcdx C screeningHepatitis C screenBON MAIN CAMPUS MEDICAL CENTERStart: 74-96-9795Xbgnbwebit ScreenDepression ScreenProtestant HospitalStart: comp foot exam completedDIABETIC FOOT EXAMSouthern [place] Medical Centertart: 45-16-2430Jpskuwjm foot examinationDiabetic Foot ExamSouthern [place] Medical Centertart: 57-99-1639Bcxlagzs screeningDilated Retinal ExamSouthern [place] Medical Centertart: 84-73-0363Oyjlgmoct B screeningURINE ALBUMIN:CREATININE RATIOSouthern [place] Medical Centertart: 1950 Hepatitis C antibody, confirmatory testDILATED RETINAL EXAMMer[facility] Health [facility] Start: 41-92-4125Xmwzn panelProtestant HospitalStart: 27-06-1669Ppiudicgq C screening Hepatitis C screenProtestant HospitalEKG 12 LeadEKG 12 Lead ECG STAT 06/28/2022 7:29 AM EDTBON HOLY CROSS HOSPITALSolarflare Communications PROTESTANT HOSPITALCellerant Therapeutics Phone: Homogenous nuclear Ab pattern [Titer] in Serum [facility] End: 05-02-3276JNTPUGWF PACU OXYGEN THERAPY PROTOCOLInitiate PACU Oxygen Therapy Protocol Respiratory Care Routine Continuous until discontinued starting 12/13/2021[facility] CenterB[facility] Athletechs Phone: Comment on above:Continuous until discontinued starting 12/13/2021 End: 74-58-8543RQUMZNEN PACU OXYGEN THERAPY PROTOCOLInitiate PACU Oxygen Therapy Protocol Respiratory Care Routine Continuous until discontinued starting 06/28/2022ON [facility]OSPITALSolar[facility] Communications [facility]OSPITALCeller[facility] Therapeutics Phone: comment on above:Continuous until discontinued starting 06/28/2022 End: 30-70-9513IZF DIAGNOSTIC BILATERALMAM DIAGNOSTIC BILATERAL Radiology Routine 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, estrogen receptor positive (HCC) 1 Occurrences starting 06/20/2023 until 07/19/2024 [facility] Work Phone: Comment on above:1 Occurrences starting 06/20/2023 until 07/19/2024Nuclear Ab [Titer] in SerumUniversity Hospitals Geauga Medical Center [facility]Wilson [facility] Work Phone: Spirometry panelIncentive spirometry Respiratory Care Routine Every 2hr while awake until discontinued starting 12/13/2021[facility] CenterB[facility]lete[facility] Phone: comment on above:Every 2hr while awake until discontinued starting 12/13/2021urgical PathologySurgical Pathology Lab Routine Release Upon Ordering for 1 Occurrences starting 06/15/2021[facility] CenterB[facility] Phone: comudef on above:Release Upon Ordering for 1 Occurrences starting 06/15/2021urgical PathologySurgical Pathology Lab Routine Release Upon Ordering for 1 Occurrences starting 12/13/2021[facility] CenterB[facility] Phone: comment on above:Release Upon Ordering for 1 Occurrences starting 12/13/2021urgical PathologySurgical Pathology Lab Routine Vaginal dysplasia Release Upon Ordering for 1 Occurrences starting 06/28/2022[employer] Phone: comawdn on above:Release Upon Ordering for 1 Occurrences starting 06/28/2022 End: 62-10-4070SSJLRMQR PATHOLOGY REPORTSURGICAL PATHOLOGY REPORT Lab Routine Once for 1 Occurrences starting 06/28/2022 until 06/28/2022[employer] Phone: comlurg on above:Once for 1 Occurrences starting 06/28/2022 until 06/28/2022 End: 23-57-6533GYCEDCVE PATHOLOGY REPORTSURGICAL PATHOLOGY REPORT Lab Routine Once for 1 Occurrences starting 11/24/2022 until 11/24/2022[employer] Phone: comment on above:Once for 1 Occurrences starting 11/24/2022 until 11/24/2022[facility] Immunizations Immunization DateImmunizationNotesCare IzriztszVrhbyqve03-23-0766mzbmvtert virus vaccine, unspecified formulationPeyman Hensley DPM Work Phone: [facility] HospitalJcpackhhmy16-88-9292ldppndvjf virus vaccine, unspecified formulationMichael NILL GeneSan Clemente Hospital and Medical CenterMqplrpwo04-80-0306USPF-ThC-7 (COVID-19) oTTS-[address] [facility] HospitalYdmslqgp38-77-4382wlzytbecq (HD-IIV4) vaccine, age 65+ yr, high dose, quadrivalent, PF (FLUZONE HIGH-DOSE)Wallace Stone MD Work Phone: [facility] HospitalCcqwkj06-08-1305uikkcysxd virus vaccine, unspecified formulationWinnie Farris PA-C Work Phone: [facility] HospitalXffish49-64-7467IEZIP-84, Moderna, PF, 100mcg/0.5mLStv XrProtestant HospitalYfbvfy03-21-0408RLUDZ-31, Moderna, PF, 100mcg/0.5mLStv [facility] Work Phone: [phone] trivalent influenza vaccine, adjuvanted, preservative freeWallace Stone MD Work Phone: [facility] HospitalPujrim47-88-0533kxqbgixaa, high dose seasonal, preservative-freeWallace Stone MD Work Phone: [facility] HospitalXyrygo12-40-5559mkamgupfmxnl polysaccharide vaccine, 23 valentWallace Stone MD Work Phone: [facility] HospitalHkikzb66-28-1215xzrlvlbau, high dose seasonal, preservative-freeWallace Stone MD Work Phone: [facility] HospitalOuvwmb13-38-5678ovhydrfxa, high dose seasonal, preservative-freeWallace Stone MD Work Phone: [facility] HospitalPrtuod07-98-9291xvjkwxzfvtbw polysaccharide vaccine, 23 valentWallace Stone MD Work Phone: [facility] HospitalWujirc56-99-3697etamssvdi virus vaccine, whole virusWallace Stone MD Work Phone: [facility] Payers DatePayer CategoryPayerPolicy [id number]-kry [id number] 2008Medicare [id number] Health Insurance 1.2.840.696552.1.13.693.2.7.9.123490.570996.43441-41-8409Wmdnzqx 1.2.840.472203.1.13.159.2.7.3.133261.370[id number] 1.2.840.938245.1.13.239.2.7.3.105124.315 [id number] 1.2.840.252260.1.13.239.2.7.3.146173.26694-11-6559Fdfw-[id number] [id number] 2.16.840.2.927884.48438812-59-0234Akvbtsa8768355 2.16.840.1.955840.3.579.2.92204-91-2562Nchsgfa1031673 2.16.840.1.700758.3.579.2.98959-01-3268Ocodkoc4393554 2.16.840.1.813317.3.579.2.95889-70-0505Qkjiiik4373440 2.16.840.1.883991.3.579.2.53796-64-2083Vpmbamm7738666 2.16.840.1.097947.3.579.2.27297-69-8313Adrooyx7327589 2.16.840.1.372900.3.579.2.94211-28-7961Zlvivsb3166047 2.16.840.1.944225.3.579.2.81279-54-6198Xdtszrz2430471 2.16.840.1.750334.3.579.2.86492-43-9836Umbbokz3455787 2.16.840.1.728208.3.579.2.10958-25-8184Oskwbim8883471 2.16840.1.499716.3.579.2.09309-37-9307Hixwygg3768132 2.16840.1.599291.3.579.2.26050-10-3264Ytyaerx5548819 2.16840.1.289630.3.579.2.96514-28-9001Cvwpikg6373881 2.16.840.1.187350.3.579.2.71943-56-3730Ctbfoqt2609702 2.16.840.1.080297.3.579.2.41080-62-5615Ogfatrl9505958 2.16840.1.561270.3.579.2.90154-81-6970Booicbx1865074 2.16.840.1.807076.3.579.2.73956-33-5061Scrsogv6524313 2.16840.1.873088.3.579.2.79915-65-3056Uiynsss7229020 2.16.840.1.875595.3.579.2.56802-54-9243Gdxpkek7151384 2.16840.1.558756.3.579.2.90139-58-5719Kkvbxut4944039 2.16.840.1.368019.3.579.2.20316-52-3832Zrerwlm8491931 2.16.840.1.445836.3.579.2.56547-26-2507Ozwonee9798520 2.16.840.1.147836.3.579.2.72348-36-9647Xxtyzxx7690565 2.16.840.1.137911.3.579.2.75897-85-7763Coihpvm1311979 2.16.840.1.094549.3.579.2.97360-29-5002Pkfinjb3832646 2.16.840.1.706027.3.579.2.27754-21-9698Gtqnovk4366300 2.16840.1.337195.3.579.2.11410-84-7708Dqlbnjn9553856 2.16.840.1.048001.3.579.2.88781-94-7907Xeagrqq49924674 2.16.840.1.485672.3.579.2.13669-77-5609Iwuwnjb56598214 2.16.840.1.223201.3.579.2.34058-73-1843Gtbbgur53346390 2.16.840.1.545360.3.579.2.09406-36-2126Pujjdsp91063091 2.16.840.1.123027.3.579.2.81462-78-1651Xbstatj79377395 2.16.840.1.464424.3.579.2.39647-74-9243Bahjwgf67687446 2.16.840.1.775862.3.579.2.13749-02-7268Ioxqifg38394320 2..840.1.222722.3.579.2.33252-50-3015Aeuvxjy945239070 2..840.1.163151.3.579.2.99666-03-2520Tezywoo215688123 2..840.1.533795.3.579.2.47801-48-3627Twxymob264260998 2.840.1.188067.3.579.2.67476-78-9450Iowszbx59357846 2..840.1.284730.3.579.2.142018-23-2172Dnmofrz5305944 2.840.1.368755.3.579.2.084444-62-3753Soizdbd9421785 2.0.1.816388.3.579.2.036360-40-9015Wqkzevl3437349 2.840.1.616686.3.579.2.214353-93-3269Lgyqimi497596590 2.840.1.783869.3.579.2.196Medicare270389004D 101o4181-95od-99el-3lo8-96999247i637Fxnctkm31332781 2.840.1.750542.3.579.2.840Zeexuic38512862 2.16840.1.301350.3.579.2.531 Qbpgoaq75435894 2.16840.1.121498.3.579.2.466Kehsqeg46149900 2.16840.1.194785.3.579.2.883Lchuomd28750822 2.840.1.399740.3.579.2.531 Social History DateTypeDetailFacilityStart: 05-12-2021 End: 66-77-5467Eymmile smoking status NHISFormer smokerMercy Health [facility] Hospital [employer] Phone: start: 09-11-1960 End: 81-33-3537Laciqkd of tobacco useCurrent smokerProtestant HospitalStart: 09-11-1962 End: 64-12-0411Xgabasv of tobacco useCigarette SmokerProtestant HospitalStart: 05-12-2021 End: 52-37-1275Twzyafu use and exposureNever usedUniversity Hospitals Ahuja Medical CenterForus Health [facility] HospitalStart: 05-12-2021 End: 73-52-0817Rcdrady intakeEx-drinker (finding)[employer] Phone: start: 65-75-7178Yux Assigned At BirthNot on fileUniversity Hospitals Ahuja Medical CenterBiosport Athletechs Phone: start: 11-26-2021 End: 75-62-8756Epchfbgw to SARS-CoV-2 (event)Not sureProtestant HospitalStart: 06-15-2021 End: 06-56-9039Kwfbsdfgso smoked current (pack per day) - ReportedParkview Health Montpelier Hospitaltory of tobacco usePassive smokerB[facility] SECOU[facility] [employer] Phone: start: 37-58-8748Mnwvscy smoking statusNeverGeneral Surgery BellevueStart: 02-14-2023 End: 63-78-4005Vxg Assigned At [facility] Hospitaltart: 09-19-2022 End: 06-11-3142Jdzxzbn intakeCurrent non-drinker of alcohol (finding)[facility] Centertart: 63-65-9125Vzy Assigned At [facility] HospitalTobacco smoking status NHISTobacco smoking consumption unknownNONE HealthcareStart: 06-20-2024 End: 82-07-6026Pwkveihej beverage intakeLifetime non-drinker (finding)[facility] HealthcareStart: 10-30-2024 End: 47-42-0938ErhNqmhzw (finding)[facility] Medical Equipment Procedure CodeEquipment CodeEquipment Original TextEquipment IdentifierDates Aortogram, abdominal, with bilateral lower extremity runoffIR STENT BLUE 6 X 12 80CMFDAStart: 60-11-0192Dkcnhsvxn, abdominal, with bilateral lower extremity runoffIR STENT SMART 6 X 120 120CMFDAStart: 66-05-3052Sfnrcvtpa, abdominal, with bilateral lower extremity runoffIR STENT SMART 6 X 40 120CMFDAStart: 04-25-2019 Aortogram, abdominal, with bilateral lower extremity runoffIR STENT BLUE 6 X 12 80CMFDAStart: 66-83-3181Piamrcser, abdominal, with bilateral lower extremity runoffIR STENT SMART 6 X 120 120CMFDAStart: 96-73-2518Bpqkhkudb, abdominal, with bilateral lower extremity runoffIR STENT SMART 6 X 40 120CMFDAStart: 04-25-2019 Aortogram, abdominal, with bilateral lower extremity runoffIR STENT BLUE 6 X 12 80CMFDAStart: 63-91-2237Xwyvxmuoi, abdominal, with bilateral lower extremity runoffIR STENT SMART 6 X 120 120CMFDAStart: 30-64-0643Chxlqnslb, abdominal, with bilateral lower extremity runoffIR STENT SMART 6 X 40 120CMFDAStart: 04-25-2019 Aortogram, abdominal, with bilateral lower extremity runoffIR STENT BLUE 6 X 12 80CMFDAStart: 23-96-0836Swkxnmboe, abdominal, with bilateral lower extremity runoffIR STENT SMART 6 X 120 120CMFDAStart: 41-73-4225Gwopovrkx, abdominal, with bilateral lower extremity runoffIR STENT SMART 6 X 40 120CMFDAStart: 04-25-2019 Aortogram, abdominal, with bilateral lower extremity runoffIR STENT BLUE 6 X 12 80CMFDAStart: 22-55-8138Tpmtslhse, abdominal, with bilateral lower extremity runoffIR STENT SMART 6 X 120 120CMFDAStart: 12-84-1240Ebsmxbfqz, abdominal, with bilateral lower extremity runoffIR STENT SMART 6 X 40 120CMFDAStart: 04-25-2019 Aortogram, abdominal, with bilateral lower extremity runoffIR STENT BLUE 6 X 12 80CMFDAStart: 13-67-5982Senxiyocq, abdominal, with bilateral lower extremity runoffIR STENT SMART 6 X 120 120CMFDAStart: 11-18-7269Avcaxdiwt, abdominal, with bilateral lower extremity runoffIR STENT SMART 6 X 40 120CMFDAStart: 04-25-2019 Aortogram, abdominal, with bilateral lower extremity runoffIR STENT BLUE 6 X 12 80CMFDAStart: 54-20-1519Xfkkwdqvg, abdominal, with bilateral lower extremity runoffIR STENT SMART 6 X 120 120CMFDAStart: 22-38-5909Eapwviayw, abdominal, with bilateral lower extremity runoffIR STENT SMART 6 X 40 120CMFDAStart: 04-25-2019 Aortogram, abdominal, with bilateral lower extremity runoffIR STENT BLUE 6 X 12 80CMFDAStart: 70-50-9309Ioclhdvsg, abdominal, with bilateral lower extremity runoffIR STENT SMART 6 X 120 120CMFDAStart: 56-87-8105Fhysnjpuw, abdominal, with bilateral lower extremity runoffIR STENT SMART 6 X 40 120CMFDAStart: 04-25-2019 Aortogram, abdominal, with bilateral lower extremity runoffIR STENT BLUE 6 X 12 80CMFDAStart: 45-37-8078Gghrdfios, abdominal, with bilateral lower extremity runoffIR STENT SMART 6 X 120 120CMFDAStart: 78-04-0534Nfbhfbtnq, abdominal, with bilateral lower extremity runoffIR STENT SMART 6 X 40 120CMFDAStart: 04-25-2019 Functional Status UghkRqwminaqryYwtpvfGffocbng55-35-2845Zfesnqeaps StatusN/AGeneral Surgery [place] Clinical Notes 05-12-2021 to 07-03-2025 Note Date & XvtnWowpKjcbjmfc59-73-6328 History of Present illness Narrative* Peyman Hensley, [...] No Food Insecurity (09/12/2024) Received from [facility] Hunger Vital Sign Within the past 12 months, you worried that your food would run out before you got the money to buymore.: Never true Within the past 12 months, the food you bought just didn't last and you didn't have money to get more.: Never true Transportation Needs: No Transportation Needs (09/12/2024) Received from [facility] Transportation In the past 12 months, has [...] Not At Risk (09/12/2024) Received from [facility] Humiliation, Afraid, Rape, and Kick questionnaire Within [...] Stability: Low Risk (09/12/2024) Received from [facility] Housing Stability Vital Sign In the last 12 months, was there a time when you were not able to pay the mortgage or rent on time?: No In the past 12 months, how many times have you moved where you were living?: 1 At any time in the past 12 months, were you homeless or living in a correction (including now)?: No ROS: General: denies fever, [...] and negative PT pedal pulses NEURO: 5.07 [place] Sybil monofilament test intact to digits and forefoot bilaterally 125Hz tuning fork diminished to 1st MPJ bilaterally ORTHO: Positive pain on palpation to toenails of the left 1,2,3,4,5 toes and right 1,2,3,4,5 toes ASSESSMENT 1. Diabetes mellitus due to underlying condition with diabetic polyneuropathy, 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) 2. Pain due to [...] future Peyman Hensley DPM documented in this encounterFitzgibbon HospitalZjhkfuphnc37-83-8130 NoteUT Electrophysiology Consult Note [place] Card[facility] Reason for visit: s/p CRTD [...] today shows good function. Patient underwent the HISTORIC PRESERVATIONIST placement on 07/10/2024 and subsequently underwent an [...] in A-fib. She was just discharged from [facility] for GI bleed. Eliquis and aspirin [...] fibrillation (CMS/HCC) CAD (coronary artery disease) Cancer ([facility]/HCC) CHF (congestive heart failure) ([facility]) Chronic kidney disease COPD (chronic obstructive pulmonary disease) ([facility]/HCC) Diabetes mellitus ([facility]) GI bleed [...] Other Tramadol Other Oxycodo (more content not included)...[facility] 11-21-2024 History of Present illness Narrative* Peyman Hensley DPM - 11/21/2024 2:40 PM EDT Patient: [...] No Food Insecurity (09/12/2024) Received from [facility] Hunger Vital Sign Within the past 12 months, you worried that your food would run out before you got the money to buymore.: Never true Within the past 12 months, the food you bought just didn't last and you didn't have money to get more.: Never true Transportation Needs: No Transportation Needs (09/12/2024) Received from [facility] Transportation In the past 12 months, has [...] Not At Risk (09/12/2024) Received from [facility] Humiliation, Afraid, Rape, and Kick questionnaire Fear of Current or Ex-Partner: No Emotionally Abused: No Physically Abused: No Sexually Abused: No Housing Stability: Low Risk (09/12/2024) Received from [facility] Housing Stability Vital Sign In the last 12 months, was there a time when you were not able to pay the mortgage or rent on time?: No In the past 12 months, how many times have you moved where you were living?: 1 At any time in the past 12 months, were you homeless or living in a correction (including now)?: No ROS: General: denies fever, [...] and negative PT pedal pulses NEURO: 5.07 [place] Sybil monofilament test intact to digits and forefoot bilaterally 125Hz tuning fork diminished to 1st MPJ bilaterally ORTHO: Positive pain on palpation to toenails of the left 1,2,3,4,5 toes and right 1,2,3,4,5 toes ASSESSMENT 1. Diabetes mellitus due to underlying condition with diabetic polyneuropathy, 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 ([facility]) 2. Pain due to onychomycosis of toenails of both feet 3. Venous insufficiency 4. Neoplasm of uncertain behavior of skin 5. 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 Patient underwent the HISTORIC PRESERVATIONIST placement on 07/10/2024 and subsequently underwent an [...] in A-fib. She was just discharged from [facility] for GI bleed. Eliquis and aspirin [...] disease) Cancer (CMS/HCC) CHF (congestive heart failure) ([facility]) Chronic kidney disease COPD (chronic obstructive pulmonary disease) ([facility]) Diabetes mellitus ([facility]) GI bleed Heart murmur Hyperlipidemia Hypertension PVD (peripheral vascular disease) PSH: Past Surgical History: Procedure Laterality Date CARDIAC CATHETERIZATION 12/15/2011, 08/23/2010, 12/30/2004, CORONARY STENT PLACEMENT HYSTERECTOMY 03/11/2005 VASCULAR SURGERY SH: Social Determinants of Health Tobacco Use: Medium Risk (10/08/2024) [facility] Patient History Smoking Tobacco Use: Former [...] TIMES DAILY NEEDED luba (more content not included)...[facility] 10-09-2024 Telephone encounter Note* Telephone Encounter - Vernell Dey RN - 10/09/2024 9:01 AM EST Pt informed of AV message, once verified, using 2 patient identifiers. She will obtain and start B12, as recommended. Patient denies any questions, needs or concerns at this time. Appointment verified. Vernell Dey RN [facility]01-29-2025 Miscellaneous Notes* Telephone Encounter - Vernell Dey RN - 10/09/2024 9:01 AM EST Pt informed of AV message, once verified, using 2 patient identifiers. She will obtain and start B12, as recommended. Patient denies any questions, needs or concerns at this time. Appointment verified. Vernell Dey RN * Telephone Encounter - Vaibhav Asthon MD - 10/09/2024 8:38 AM EST Please tell her to start OTC B12 supplements 1000mcg one tab daily for the low B12 levels. Thank you. documented in this encounterMercy Health [facility] Hospital01-29-2025 Telephone encounter Note * Telephone Encounter - Vaibhav Ashton MD - 10/09/2024 8:38 AM EST Please tell her to start OTC B12 supplements 1000mcg one tab daily for the low B12 levels. Thank you. [facility]01-28-2025 Instructions* Patient Instructions* Vaibhav Ashton MD - 10/08/2024 1:23 PM EST Labs today Arimidex sent to pharmacy F/u in 6 months documented in this encounterMercy Health Perrysburg Hospital01-28-2025 History of Present illness Narrative* Vaibhav Ashton MD - 10/08/2024 1:00 PM EST Images from the original note were not included. PATIENT NAME: Harman [facility] NO.: [id number] ATTENDING PHYSICIAN: Vaibhav Ashton MD DATE OF SERVICE: 10/08/24 Some of the elements of this note have been copied from Winnie MILLAN previous progress note dated 06/20/23. All the information has been reviewed carefully. CC: Follow up Diagnosis: T1b, N0, M0- R breast, Tumor 9 mm, Grade 2, Margins negative, Negative LVI, 2 SNL negative, ER and CT >95% positive, Her2 IHC 1+ Treatment History: [...] in Jun 2024 - Mammogram done at [facility] - On eliquis for Afib PAST MEDICAL [...] Range Status 06/20/2023 4.8 % Final Abs Kimball Date Value Ref Range Status 06/20/2023 0.49 [...] follow up. R Breast T1b,N0,M0- ER and CT >95% positive and Her-2 IHC 1+ tumor [...] months. 3.Vulvar high grade dysplasia- Seen by [facility] in the past. Not following currently. 4 CHF- S/p AICD placement in Jun 2024. 5. Afib on eliquis 6. CKD 7. F/u with PCP, cardiology and other consultants. F/u in 6 months. Total time spent 30 min. Vaibhav Ashton MD [facility] Hematology/Oncology CC: MD Mateus Spicer MD documented in this encounterMercy Health Perrysburg Hospital01-28-2025 NoteHNO ID: [id number] Author: VAIBHAV ASHTON MD Service: ? Author Type: Physician Type: Progress Notes Filed: 10/08/2024 14:03 Note Text: PATIENT NAME: Harman [facility] NO.: [id number] ATTENDING PHYSICIAN: Vaibhav Ashton MD DATE OF SERVICE: 10/08/24 Some of the elements of this note have been copied from Winnie MILLAN previous progress note dated 06/20/23. All the information has been reviewed carefully. CC: Follow up Diagnosis: T1b, N0, M0- R breast, Tumor 9 mm, Grade 2, Margins negative, Negative LVI, 2 SNL negative, ER and CT >95% positive, Her2 IHC 1+ Treatment History: [...] in Jun 2024 - Mammogram done at [facility] - On eliquis for Afib PAST MEDICAL [...] Total (g/dL) Date Value (more content not included)...[facility]01-24-2025 Telephone encounter Note* Telephone Encounter - Carlos Brooks - 10/04/2024 2:27 PM EST Patient has been scheduled w/ Dr. Guzman on Sunday 10/08. Patient notified. Thanks! Carlos Brooks [facility]01-24-2025 Miscellaneous Notes* Telephone Encounter - Carlos Brooks [...] they would like to transfer care to [place] * Telephone Encounter - Evita Deshpande RN - 10/04/2024 12:46 PM EST Per 06/20/23 [facility] oncology: pt is to return in about 4 months (around 10/21/2023) for MD miquel visit. Pt has been lost to follow up NEEDS visit before medication can be renewed: OV Dr Stone in [place]- if too far for pt to drive can forward to [place] team for transition of care with new provider Labs day prior (CBC/diff, CMP) [phone] (home) * Telephone Encounter - Maylin Sandoval [...] updated that he practices out of the [facility] location. I made heraware that I will send a message and she is to expect a call. Patient and daughter agree with plan and appreciate the time. Maylin Sandoval RN [facility] Telephone encounter Note * Telephone Encounter - [...] they would like to transfer care to [place] [facility]01-24-2025 Telephone encounter Note* Telephone Encounter - Evita Deshpande RN - 10/04/2024 12:46 PM EST Per 06/20/23 [facility] oncology: pt is to return in about 4 months (around 10/21/2023) for MD miquel visit. Pt has been lost to follow up NEEDS visit before medication can be renewed: OV Dr Stone in [place]- if too far for pt to drive can forward to [place] team for transition of care with new provider Labs day prior (CBC/diff, CMP) [phone] (home) [facility]01-24-2025 Telephone encounter Note* Telephone Encounter [...] updated that he practices out of the [facility] location. I made heraware that I will send a message and she is to expect a call. Patient and daughter agree with plan and appreciate the time. Maylin Sandoval RN [facility]01-14-2025 NoteUT Electrophysiology Consult Note [place] Cardiology - [facility] Reason for visit: s/p CRTD and AVN [...] today shows good function. Patient underwent the HISTORIC PRESERVATIONIST placement on 07/10/2024 and subsequently underwent an [...] in A-fib. She was just discharged from [facility] for GI bleed. Eliquis and aspirin [...] kidney disease COPD (chronic obstructive pulmonary disease) ([facility] Diabetes mellitus ([facility]) GI bleed Heart murmur Hyperlipidemia Hypertension PVD (peripheral vascular disease) ([facility]) PSH: Past [...] apixaban (Eliquis) 2.5 mg (more content not included)...[facility]01-02-2025 NoteUT Electrophysiology Consult Note [place] Cardiology [facility] Reason for visit: s/p CRTD [...] today shows good function. Patient underwent the HISTORIC PRESERVATIONIST placement on 07/10/2024 and subsequently underwent an [...] in A-fib. She was just discharged from [facility] for GI bleed. Eliquis and aspirin [...] Diagnosis Date Abnormal ECG Arrhythmia Atrial fibrillation ([facility]/HCC) CAD (coronary artery disease) Cancer ([facility]/HCC) CHF (congestive heart failure) ([facility]/HCC) Chronic kidney disease COPD (chronic obstructive pulmonary disease) ([facility]/HCC) Diabetes mellitus ([facility]/HCC) GI bleed Heart murmur Hyperlipidemia Hypertension PVD (peripheral vascular disease) ([facility]) PSH: Past [...] 1 tablet (2.5 mg) (more content not included)...[facility]12-23-2024 NoteUT Electrophysiology Consult Note NM Cardiology [facility] Reason for visit: s/p CRTD [...] today shows good function. Patient underwent the HISTORIC PRESERVATIONIST placement on 07/10/2024 and subsequently underwent an [...] in A-fib. She was just discharged from [facility] for GI bleed. Eliquis and aspirin [...] murmur Hyperlipidemia Hypertension PVD (peripheral vascular disease) ([facility]/HCC) PSH: Past Surgical History: Procedure Laterality Date [...] on file Intimate Partner Violence: Unknown (11/02/2023) [place] Safety & Environment Fear of Current or [...] daily. fish oil concen (more content not included)...[facility]12-19-2024 History of Present illness Narrative* Peyman Hensley, [...] 4 months after hitting object. Currently sees [facility] wound center every 3 weeks with [...] Partner Violence: Unknown (11/02/2023) Re[facility] from [facility] [place] Safety & Environment Fear of [...] and negative PT pedal pulses NEURO: 5.07 [place] Sybil monofilament test intact to digits and forefoot bilaterally 125Hz tuning fork diminished to 1st MPJ bilaterally ORTHO: Positive pain on palpation to nails 1 through 10 Positive pain palpation left anterior braun ASSESSMENT 1. 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 Diabetes mellitus due to underlying condition with diabetic polyneuropathy, 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 senior care insulin use ([facility]) 3. Pain due to onychomycosis of toenails [...] DSD applied . Patient currently has the [facility] wound center applying Medihoney every other day. Did discuss possibility if no improvement to contact Podiatry for advanced wound care treatments or if any signs of infection Peyman Hensley DPM documented in this encounterFitzgibbon [id number] NoteUT Electrophysiology Consult Note [place] Cardiology [facility] Reason for visit: s/p CRTD [...] today shows good function. Patient underwent the HISTORIC PRESERVATIONIST placement on 07/10/2024 and subsequently underwent an [...] in A-fib. She was just discharged from [facility] for GI bleed. Eliquis and aspirin [...] fibrillation (CMS/HCC) CAD (coronary artery disease) Cancer ([facility]/HCC) CHF (congestive heart failure) ([facility]/HCC) Chronic kidney disease COPD (chronic obstructive pulmonary disease) ([facility]/HCC) Diabetes mellitus ([facility]/HCC) GI bleed Heart murmur Hyperlipidemia Hypertension PVD (peripheral vascular disease) ([facility]/HCC) PSH: Past Surgical History: Procedure Laterality Date CARDIAC CATHETERIZATION 12/15/2011, 08/23/2010, 12/30/2004, CORONARY STENT PLACEMENT HYSTERECTOMY 03/11/2005 VASCULAR SURGERY SH: Social Determinants of Health Tobacco Use: Medium Risk (06/20/2024) [facility] Patient History Smoking Tobacco Use: Former Smokeless Tobacco Use: Never Passive Exposure: Not on file Alcohol Use: Not on file Financial Resource Strain: Not on file Food Insecurity: Not on file Transportation Needs: Not on file Physical Activity: Not on file Stress: Not on file Social Connections: Not on file Intimate Partner Violence: Unknown (11/02/2023) [place] Safety & Environment Fear of Current or Ex-Partner: Not on file Emotionally Abused: Not on file Physically Abused: Not on file Sexually Abused: Not on file Physically or Sexually Abused: Not on file Depression: Not at risk (02/14/2023) Received from [facility] PHQ-2 PHQ-2 score: 0 [...] mouth two times daily. fish oil concentrate ([place]aredo-3) 120-180 mg capsule Take 1,000 mg by [...] >130 insulin glargine (L (more content not included)...[facility]12-02-2024 NoteAV NODE ABLATION PROCEDURE REPORT DATE OF PROCEDURE: 08/12/2024 PERFORMING PHYSICIAN: Dr. Brian Kern SHIP YARD ELECTRICAL PERSON: SAVAGE CONSENT: Patient NAME OF THE PROCEDURE: [...] in A-fib. She was just discharged from [facility] for GI bleed. Eliquis and aspirin have been put on hold. She was originally scheduled for DCCV today with Dr. Keyes. Jardiance was stopped, and metoprolol was reduced to 100mg daily.She underwent HISTORIC PRESERVATIONIST on 07/10/24 and now presents for AVN [...] stored. Venous access was obtained and a Fluentifyigo sheath was placed in the right femoral [...] 3. Continue anticoagulation. Brian Kern MD Cardiac Electrophysiology.[facility]12-02-2024 Note Patient: Harman Mcleod Procedure Information Date/Time: 08/12/24 1230 Procedure: AV node ablation - PC APPROVED Location: [facility] 1 EP / [facility] (Cath) Providers: Brian Kern MD Clinical information reviewed: Allergies Meds OB Status Physical Exam Airway Mallampati: II TM distance: >3 FB Neck ROM: full Cardiovascular Dental Pulmonary Abdominal Anesthesia Plan ASA 2 CSE Additional Equipment RequestsLakeHealth [facility] Center10-10-2024 History of Present illness Narrative* Peyman Nair Judson, DPM - 06/20/2024 9:40 AM EDT Patient: [...] 2 months after hitting object. Currently sees [facility] wound center every 3 weeks with [...] Partner Violence: Unknown (11/02/2023) Received from [facility] [place] Safety & Environment Fear of [...] and negative PT pedal pulses NEURO: 5.07 [place] Sybil monofilament test intact to digits and forefoot bilaterally 125Hz tuning fork diminished to 1st MPJ bilaterally ORTHO: Positive pain on palpation to nails 1 through 10 Positive pain palpation left anterior braun ASSESSMENT 1. Venous insufficiency 2. Hav (hallux abducto valgus), left 3. Acquired deformity of left toe 4. 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 Pain [...] DSD applied . Patient currently has the [facility] wound center applying Medihoney every other day. Did discuss possibility if no improvement to contact Podiatry for advanced wound care treatments or if any signs of infection Peyman Hensley DPM documented in this encounterFitzgibbon [id number] Progress note Author Janell Mathews [facility] April 10, 2024 10:30amNote Date/TimeJuly 2023 10:30[place] [address] Wound Center Provider Note Signed Patient: Harman Mcleod MR#: [id number] : 1940 Acct:[id number] Age/Sex: 83 / F Copies to: MD Janell Oliver, SALES VENDOR~ HPI Date of Visit Date of Visit: Date of Service: 04/10/2024 Time of Service: : Narrative HPI: 12/11/23 Harman is an 83 year old presenting to [facility] wound care for an initial visit [...] for the entire visit, she has [facility], the left leg will be treated [...] wrapped again today for good measure and [facility] can remove next week and start stockings or wraps if something isopen on the legs, family and friend present for the visit, does not need to return to the office unless new ulcers do develop, spoke about her getting established with a campaign advisor and so hopefully she will follow through [...] instructedto go to the ED per the [facility] nurse but she had refused [...] lower leg ulcers Mode of Arrival/ Senior Infrastructure Engineer: Friend Assistive Device Used Today: Walker Lives with:: Significant Other Appetite Description: Within Normal Limits Who helps w/ dressing change?: Home Health Why Do You Need Help?: Can't Reach Ulcer, Limited mobility, Unsafe leave home byself and Taxing effort to leave home Smoking Status: Former smoker [facility] Medical History (Updated 04/10/24 @ 10:30 by [...] List clean-up per [facility] History of heart artery stent Problem List clean-up [facility] request [facility] Family History (Updated 06/01/23 @ [...] DAILY 04/25/19 [History Confirmed 12/11/23] omega-3s 300 yv-cmf-hui-other [id number]-ldkh oil 1,000 mg capsule (Laredo-3 Fish Oil) 2 cap PO BID 04/25/19 [...] Stasis Ulcer Thickness: Skin Breakdown Bed Appearance: [place] Percent of Wound Bed Granulated/Red: 100 Percent [...] <Electronically signed by FERNY Mathews> 04/10/[address] [facility] Work Phone: 1(608) 701-872807-16-2024 Progress note Author Janell Mathews [facility] March 26, 2024 9:51amNote Date/TimeJuly 2023 9:51[place] [address] Wound Center Provider Note Signed Patient: Harman Mcleod MR#: [id number] : 1940 Acct:[id number] Age/Sex: 83 / F Copies to: MD Janell Oliver APRN~ HPI Date of Visit Date of Visit: Date of Service: 03/26/2024 Time of Service: 09:47 Narrative HPI: 12/11/23 Harman is an 83 year old presenting to [facility] wound care for an initial visit [...] for the entire visit, she has [facility], the left leg will be treated [...] wrapped again today for good measure and [facility] can remove next week and start stockings or wraps if something isopen on the legs, family and friend present for the visit, does not need to return to the office unless new ulcers do develop, spoke about her getting established with a campaign advisor and so hopefully she will follow through [...] instructedto go to the ED per the [facility] nurse but she had refused [...] lower leg ulcers Mode of Arrival/ Senior Infrastructure Engineer: Friend Assistive Device Used Today: Walker Lives with:: Significant Other Appetite Description: Within Normal Limits Who helps w/ dressing change?: Home Health Why Do You Need Help?: Can't Reach Ulcer, Limited mobility, Unsafe leave home byself and Taxing effort to leave home Smoking Status: Former smoker [facility] Medical History (Updated 02/13/24 @ 10:54 by [...] DAILY 04/25/19 [History Confirmed 12/11/23] omega-3s 300 be-lcg-vnm-other [id number]-[id number] oil 1,000 mg capsule ([place]ared[place]-3 Fish Oil) 2 cap PO BID 04/25/19 [...] Breakdown Bed Appearance: Epithelial Tissue or Bridge, [place] and Yellow Percent of Wound Bed Granulated/Red: [...] <Electronically signed by FERNY Mathews> 03/26/[address] [facility] Work Phone: 1(156) 839-377406-04-2024 Progress note Author Janell Mathews [facility] February 13, 2024 10:55amNote Date/TimeJune 2023 10:55[place] [address] Wound Center Provider Note Signed Patient: Harman Mcleod MR#: [id number] : 1940 Acct:[id number] Age/Sex: 83 / F Copies to: MD Janell Oliver, SALES VENDOR~ HPI Date of Visit Date of Visit: Date of Service: 02/13/2024 Time of Service: 10:47 Narrative HPI: 12/11/23 Harman is an 83 year old presenting to [facility] wound care for an initial visit [...] present for the entire visit, she has [facility], the left leg [...] wrapped again today for good measure and [facility] can remove next week and start stockings or wraps if something isopen on the legs, family and friend present for the visit, does not need to return to the office unless new ulcers do develop, spoke about her getting established with a campaign advisor and so hopefully she will follow through [...] instructedto go to the ED per the [facility] nurse but she had refused this and wanted to come to this appt instead Subjective Pain Left Leg: Pain Description: Intermittent Pain Intensity: 0 Wound/Ulcer History When did wound start?: August 2023 bilateral lower leg ulcers Mode of Arrival/ Senior Infrastructure Engineer: Friend Assistive Device Used Today: Walker Lives with:: Significant Other Appetite Description: Within Normal Limits Who helps w/ dressing change?: Home Health Why Do You Need Help?: Can't Reach Ulcer, Limited mobility, Unsafe leave home byself and Taxing effort to leave home Smoking Status: Former smoker [facility] Medical History (Updated 02/13/24 @ 10:54 by [...] List clean-up per request of Phys. [facility] Family History (Updated 06/01/23 @ [...] DAILY 04/25/19 [History Confirmed 12/11/23] omega-3s 300 li-tei-sjv-other raoxo4y-yena oil 1,000 mg capsule ([place]ared[place]-3 Fish Oil) 2 cap PO BID 04/25/19 [...] Posterior Thigh: Bed Appearance: Beefy Red and [place] Percent of Wound Bed Granulated/Red: 0 Percent [...] <Electronically signed by FERNY Mathews> 02/13/[address] [facility] Work Phone: 1(559) 418-972905-21-2024 Progress note Author Janell Mathews [facility] January 30, 2024 10:44amNote Date/TimeMay 2023 10:44[place] [address] Wound Center Provider Note Signed Patient: Harman Mcleod MR#: [id number] : 1940 Acct:[id number] Age/Sex: 83 / F Copies to: MD Janell Oliver, FERNY~ HPI Date of Visit Date of Visit: Date of Service: 01/30/2024 Time of Service: 10:37 Narrative HPI: 12/11/23 Harman is an 83 year old presenting to [facility] wound care for an initial visit [...] present for the entire visit, she has [facility], the left leg [...] wrapped again today for good measure and [facility] can remove next week and start stockings or wraps if something isopen on the legs, family and friend present for the visit, does not need to return to the office unless new ulcers do develop, spoke about her getting established with a campaign advisor and so hopefully she will follow through [...] lower leg ulcers Mode of Arrival/ Senior Infrastructure Engineer: Friend Assistive Device Used Today: Walker Lives with:: Significant Other Appetite Description: Within Normal Limits Who helps w/ dressing change?: Home Health Why Do You Need Help?: Can't Reach Ulcer, Limited mobility, Unsafe leave home byself and Taxing effort to leave home Smoking Status: Former smoker [facility] Medical History (Updated 01/30/24 @ 10:43 by [...] DAILY 04/25/19 [History Confirmed 12/11/23] omega-3s 300 ov-vvj-kdw-other jqlun9n-sefg oil 1,000 mg capsule (Laredo-3 Fish Oil) 2 cap PO BID 04/25/19 [...] Posterior Thigh: Bed Appearance: Beefy Red and [place] Percent of Wound Bed Granulated/Red: 100 Percent [...] <Electronically signed by FERNY Mathews> 01/30/[address] [facility] Work Phone: 1(821) 692-870404-18-2024 Progress note Author Janell Mathews [facility] December 28, 2023 11:22amNote Date/TimeApril 2023 11:22[place] [address] Wound Center Provider Note Signed Patient: Harman Mcleod MR#: [id number] : 1940 Acct:[id number] Age/Sex: 83 / F Copies to: MD Janell Oliver, FERNY~ HPI Date of Visit Date of Visit: Date of Service: 12/28/2023 Time of Service: 11:19 Narrative HPI: 12/11/23 Harman is an 83 year old presenting to [facility] wound care for an initial visit [...] present for the entire visit, she has [facility], the left leg [...] spoke about her getting established with a campaign advisor and so hopefully she will follow through on that, spoke about compression socks too forlong term use Subjective Pain Left Leg: Pain Intensity: 0 Wound/Ulcer History When did wound start?: August 2023 bilateral lower leg ulcers Mode of Arrival/ Senior Infrastructure Engineer: Friend Assistive Device Used Today: Walker Lives with:: Significant Other Appetite Description: Within Normal Limits Who helps w/ dressing change?: Home Health Why Do You Need Help?: Can't Reach Ulcer, Limited mobility, Unsafe leave home byself and Taxing effort to leave home Smoking Status: Former smoker [facility] Medical History (Updated 12/11/23 @ 09:30 by [...] List clean-up per request of Phys. [facility] Surgical History History of bladder suspension procedure Problem List clean-up per request of Phys. EHR Cmte H/O: hysterectomy Problem List clean-up per request of Phys. EHR Cmte History of appendectomy Problem List clean-up per request of Phys. [facility] History of heart artery stent Problem List clean-up per request of Phys. [facility] Family History (Updated 06/01/23 @ [...] DAILY 04/25/19 [History Confirmed 12/11/23] omega-3s 300 mh-lvx-swl-other ipdng8y-wzvf oil 1,000 mg capsule (Laredo-3 Fish Oil) 2 cap PO BID 04/25/19 [...] 15 Dictated By: Janell Mathews APRN DD/ 18 Signed By: <Electronically signed by FERNY Mathews> 12/28/[address] [facility] Work Phone: 1(416) 220-436704-01-2024 Progress note Author Janell Mathews [facility] December 11, 2023 9:35amNote Date/TimeApr2023 9:35[place] [address] Wound Center Provider Note Signed Patient: Harman Mcleod MR#: [id number] : 1940 Acct:[id number] Age/Sex: 83 / F Copies to: MD Janell Oliver APRN~ HPI Date of Visit Date of Visit: Date of Service: 12/11/2023 Time of Service: 09:27 Narrative HPI: 12/11/23 Harman is an 83 year old presenting to [facility] wound care for an initial visit [...] for the entire visit, she has [facility], the left leg will be treated [...] lower leg ulcers Mode of Arrival/ Senior Infrastructure Engineer: Friend Assistive Device Used Today: Walker Lives with:: Significant Other Appetite Description: Within Normal Limits Who helps w/ dressing change?: Home Health Why Do You Need Help?: Can't Reach Ulcer, Limited mobility, Unsafe leave home byself and Taxing effort to leave home Smoking Status: Former smoker [facility] Medical History (Updated 12/11/23 @ 09:30 by Janell Mathews APRN) Leg ulcer, left Cataract Problem List clean-up per request of Phys. 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 [facility] Vaginal lesion Problem List clean-up per request of Phys. EHR Cmte PAD (peripheral artery disease) Problem List clean-up per request of Phys. EHR Cmte CAD (coronary artery disease) Problem List clean-up per request of Phys. EHR Cmte Dyslipidemia Problem List clean-up per request of Phys. EHR Cmte Hyperthyroidism Problem List clean-up per request of Phys. [facility] Diabetes mellitus Problem List clean-up per request of Phys. EHR Cmte Hypertension Problem List clean-up per request of Phys. [facility]HR [facility] Surgical History History of bladder suspension procedure Problem List clean-up per request of Phys. [facility] H/O: hysterectomy Problem List clean-up per request of Phys. [facility] History of appendectomy Problem List clean-up per request of Phys. [facility]HR [facility] History of heart artery stent Problem List clean-up per request of Phys. [facility] Family History (Updated 06/01/23 @ [...] DAILY 04/25/19 [History Confirmed 12/11/23] omega-3s 300 gb-xwq-tps-other oayla2z-yshr oil 1,000 mg capsule (Laredo-3 Fish Oil) 2 cap PO BID 04/25/19 [...] Breakdown Bed Appearance: Epithelial Tissue or Bridge, [place] and Yellow Percent of Wound Bed Granulated/Red: [...] Signed By: <Electronically signed by FERNY Mathews> 12/11/23 [address] [facility] Work Phone: 1(719) 117-669910-10-2023 Nurse Note* Lina Lopes MA - 06/20/2023 2:49 PM EDT Patient would like to know if she needs a mammogram? She was told in Oct that she would need one in6 months. Lina Lopes MA documented in this encounterMer[facility]10-10-[facility]23 History of Present illness Narrative* Winnie Farris PA-C - 06/20/2023 2:30 PM EDT Images from the original note were not included. PATIENT NAME: Harman Mcleod CLINIC NO.: [id number] ATTENDING PHYSICIAN: Wallace Stone MD DATE OF [...] Negative LVI, 2 SNL negative, ER and CT >95% positive, Her2 IHC 1+ Treatment History: [...] Range Status 06/20/2023 4.8 % Final Abs Kimball Date Value Ref Range Status 06/20/2023 0.49 [...] follow up. R Breast T1b,N0,M0- ER and CT >95% positive and Her-2 IHC 1+ tumor post Lumpectomy and SNL 10/2022. Reviewed path and she elected not to proceed with XRT and started Arimidex in 11/2022. Continues to tolerate well. Mammogram in 07/2023 (order placed). See us in 4 months. Plan is for 5 years of AI therapy Osteoporosis- On Prolia started 08/[address] Perry Vulvar high grade dysplasia- Follows Screen Repairer Crusher Onc at [facility] R Leg swelling and pain and h/o PVD- Follows vascular HTN--managed by PCP Winnie Farris PA-C CC: MD Mateus Spicer MD documented in this encounterMer[facility]09-21-2023 Evaluation note* Encounter Date Diagnosis Assessment [...] In addition I took her to the [facility] and performed a right iliac venogram which [...] offer her a second opinion at the [facility] vascular medicine program. She declined. I will see her as needed in the future. [facility] Other 06-29-2023 Evaluation note* Encounter Date Diagnosis [...] to call us with any concerns whatsoever. [facility] Other 06-06-2023 History of Present illness Narrative* Wallace Stone MD - 02/14/2023 10:37 AM EDT Images from the original note were not included. PATIENT NAME: Harman Mcleod CLINIC NO.: [id number] ATTENDING PHYSICIAN: Wallace Stone MD DATE OF [...] Negative LVI, 2 SNL negative, ER and CT >95% positive, Her2 IHC 1+ Treatment History: [...] Range Status 02/14/2023 8.3 % Final Abs Kimball Date Value Ref Range Status 02/14/2023 0.86 [...] follow up. R Breast T1b,N0,M0- ER and CT >95% positive and Her-2 IHC 1+ tumor post Lumpectomy and SNL 10/2022. Reviewed path and she elected not to proceed with XRT and started Arimidex in 11/2022 and toleraing well. Plan for 5 years of therapy. Osteoporosis- On Prolia started 08/[address] Perry Vulvar high grade dysplasia- Follows Screen Repairer Crusher Onc at [facility] R Leg swelling and pain and h/o PVD- Follows vascular HTN Rash- refer to Derm Thank you for the kind referral. If there are any questions and or concerns please do not hesitate to contact me at [phone]. Wallace Stone MD Hematology/Medical Oncology [facility] I spent a total of 30 minutes on the date of the service which included preparing to see the patient, [id number] patient care, completing clinical documentation, obtaining and/or reviewing separately obtained history, performing a medically appropriate examination, counseling and educating the pat ient/family/caregiver, and ordering medications, tests, or procedures. CC: MD Mateus Spicer MD documented in this encounterMercy Health Perrysburg Hospital03-29-2023 Evaluation note* Encounter Date Diagnosis Assessment [...] her primary care provideras well as her co founder and ceo. We will continue to follow her along and see her again in a couple of months and see how she is doing with her pumps, conservative efforts, and weight management. She knows to call us in the meantime with any other additional concerns or complaints. [facility] Other 03-21-2023 [facility] Evaluation [facility]* Encounter Date Diagnosis [...] specified soft tissue disorders (ICD-10 - M79.89) [facility] Other 03-08-2023 Miscellaneous Notes* Telephone Encounter - Adriana Pereira [facility] - 11/16/2022 8:40 AM EST Called Vascular office spoke with Jessy. They have received this referral and have patient scheduledwith Dr Gonzales on 11/23 @ 10:00. Adriana Burnham * Telephone Encounter - Kira Ko [facility] - 11/10/2022 9:38 AM EST Records faxed. * Telephone Encounter - Adriana Pereira [facility] - 11/10/2022 8:46 AM EST Janeth: Information ready for you. Adriana Burnham * Telephone Encounter - Carlos Brooks - 11/09/2022 2:44 PM EST Vascular Consult [facility] Previous patient of Dr. Mendez 3 years or more. Janeth/Dudley: Can you please refer patient and follow up? Thanks! Carlos Brooks documented in this encounterMercy Health Perry[facility] Hospital03-01-2023 History of Present illness Narrative* Wallace Stone MD - 11/09/2022 2:00 PM EST Images from the original note were not included. PATIENT NAME: Harman Mcleod CLINIC NO.: [id number] ATTENDING PHYSICIAN: Wallace Stone MD DATE OF SERVICE: November 09, [address] Banks referring provider defined for this encounter. here is an update on a follow up visit on female Harman Mcleod at the clinic 11/09/2022 Diagnosis: T1b, N0, M0- R breast, Tumor 9 mm, Grade 2, Margins negative, Negative LVI, 2 SNL negative, ER and CT >95% positive, Her2 IHC 1+ Treatment History: [...] follow up. R Breast T1b,N0,M0- ER and CT >95% positive and Her-2 IHC 1+ tumor post Lumpectomy and SNL 10/2022. Reviewed path and she may skip radiation and also discussed hormonal; therapy with an AI and she will start Arimidex. Discussed adverse events and she wishes to proceed. Osteoporosis- On Prolia started 08/[address] Perry Vulvar high grade dysplasia- Follows Screen Repairer Crusher Onc [facility] and next appointment 11/24/2022 CRI R Leg swelling and pain and h/o PVD- refer to vascular HTN Thank you for the kind referral. If there are any questions and or concerns please do not hesitate to contact me at [phone]. Wallace Stone MD Hematology/Medical Oncology [facility] [place] spent a total of 30 minutes on the date of the service which included preparing to see the patient, [id number]-noeb patient care, completing clinical documentation, obtaining and/or reviewing separately obtained history, performing a medically appropriate examination, counseling and educating the pat ient/family/caregiver, and ordering medications, tests, or procedures. CC: MD Mateus Spicer MD documented in this encounterMercy Health Perrysburg Hospital02-08-2023 NoteOPERATIVE NOTE OPERATION DATE: 10/19/2022 PREOPERATIVE DIAGNOSIS: Right breast cancer. POSTOPERATIVE DIAGNOSIS: Right breast cancer. PROCEDURE: Needle localized right breast lumpectomy with sentinel lymph node biopsy. SURGEON: Iliana Gagnon M.D. ANESTHESIA: General laryngeal mask airway. GIMP BUTTONHOLE MACHINE OPERATOR: SADI Hammer ESTIMATED BLOOD LOSS: Less [...] room in good condition. CC: Mateus Perry M.D.[facility]01-31-2023 NoteEXAMINATION: XR CHEST 2 V HISTORY: Pre-surgery [...] Electronically authenticated by: ALFONSO GEORGE Date: 2022-10-11 12:11[facility]01-12-2023 History of Present illness Narrative* Marcin Nayak MD - 09/22/2022 11:38 PM EST Images from the original note were not included. Radiation Oncology - New Patient/Consult Note PATIENT NAME: Harman Mcleod PATIENT Signed: Marcin Nayak MD I spent a total of 60 minutes on the date of the service which included preparing to see the patient, vkkj-qe-crks patient care, and counseling and educating the patient/family/caregiver. This document has been created with the use of voice recognition technology. It may contain inaccuracies, misspellings, inaccurate syntax or inappropriate word context that are a result of the inadequacies/shortcomings of said technology/software. documented in this encounterMercy Health Perrysburg Hospital01-12-2023 History of Present illness Narrative* Wallace Stone MD - 09/22/2022 5:10 PM EST Images from the original note were not included. PATIENT NAME: Harman Mcleod CLINIC NO.: [id number] ATTENDING PHYSICIAN: Wallace Stone MD DATE OF [...] provisional grade 1 through 2, ER and CT greater than 95% positive, HER2/holden negative with an IHC score of 1+ and FISH negative at [facility]. This patient was subsequently referred to Dr. Iliana Gagnon for surgical consultation. Patient denies any previous history of abnormal mammograms and or breast biopsy. She has had a recent bone density in [place] and was diagnosed with osteoporosis and started on Prolia as well. Patient has a sister who was diagnosed with breast cancer at the age of 82 and her daughter diagnosed with breast cancer at the age of 37. She quit smoking approximately 4 years ago. 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 She [...] mouth daily at bedtime. 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 Wallace Stone M.D. Hematology/Medical Oncology [facility] [phone] CC: MD Mateus Spicer MD I spent a total of 60 minutes on the date of the service which included preparing to see the patient, usol-nw-fiff patient care, completing clinical documentation, obtaining and/or reviewing separately obtained history, performing a medically appropriate examination, counseling and educating the pat ient/family/caregiver, ordering medications, tests, or procedures, and communicating with other HCPs (not separately reported). documented in this encounterMercy Health Perrysburg Hospital01-12-2023 Miscellaneous Notes* Telephone Encounter - Heavenly Wilkerson RN - 09/22/2022 3:52 PM EST [...] involved. Heavenly Wilkerson RN documented in this encounterMercy Health Perrysburg Hospital12-30-2022 NoteChief Complaint consultation for right breast [...] biopsy that r evealed invasive ductal carcinoma, ER/CT +; Her2 holden negative; patient denies change [...] gms IV prior to OR SCDs Ordered: [facility] External Ambulatory Referral [facility] External Ambulatory Referral 2. 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 Garza. documented in [facility] [place] Phone: 1([phone]) 940-184510-18-2022 Hospital Discharge instructions* Discharge Instructions* Brody Ken [...] urinate call your doctor documented in this encounterBON [employer] Phone: 1(358) 486-772404-04-2022 History of Present illness Narrative* Brody Ken [...] Plunkett MD - 12/13/2021 2:12 PM EDT Screen Repairer Crusher Oncology Attending Note Patient seen and evaluated [...] chart for or 12/13/21 documented in this encounterAdvanced System Designs Phone: [phone]) 776-590904-04-2022 Evaluation note* Diagnosis Vaginectomy w/ Cysto 12/13/21- Primary Other postprocedural status documented in this encounter [employer] Phone: [phone]) 766-173504-04-2022 Hospital Discharge instructions* Instructions* Brody Ken RN [...] of: May 19, 2021 Content Version: 13.2 [employer]. Care instructions adapted under license by [employer]. If you have questions about a medical condition or this instruction, always ask your healthcare professional. [employer] disclaims any warranty or liability for your [...] urinate call your doctor documented in this [facility] [employer] Work Phone: [phone]) 807-996303-28-2022 History of Present illness Narrative* YANA Wallis [...] Disease: Yes, stents x 3, Dr. Keyes ([facility]) Hypertension: yes Active smoker: Quit 2017, [...] pcp potassium 3.3,wbc 12.6 documented in this [facility] [employer] Phone: [phone]) 759-664303-25-2022 Hospital Discharge instructions* Instructions* Yoanna Diaz PA [...] drive you home after your procedure. Your commercial trailer truck driver must be 18 years of [...] questions, call the Pre-Admission Testing Unit at [phone]. Day of Surgery/Procedure As a patient at [facility] you can expect quality medical and nursing care that is centered on your individual needs. Our goal is to make your surgical experience as comfortableas possible . Directions to the Surgery Center [facility] is located at [address] [place] [address]. Please pull into the Emergency parking lot and stop at the [employer] richards. We offer free gas fitter apprentice service for all our surgery patients, if you choose not to have gas fitter apprentice parking we have additional parking across the street.You will enter the facility following the [facility] [place] sign. Please stop at the campus receptionist desk where you will be checked in by the staff. If you have any questions please call [phone]. Transportation after your procedure. You will need a friend or family member to drive you home after your procedure. Your commercial trailer truck driver must be18 years of age [...] You may shave your face or neck. [place] your teeth but do not swallow water. [...] or the day of surgery, please call [phone], or [phone] documented in this encounterAdvanced System Designs Phone: [phone]) 860-624310-05-2021 History of Present illness Narrative* Parvin Rogel RN - 06/15/2021 10:[address] Kamla gan, pt cleared for phase II * Alla Dickerson DO - 06/15/2021 9:42 AM EDT OB Resident Progress Note Patient may be discharged home once she has met criteria in the PACU. Please perfect serve or page OUTBOUND TELEMARKETING REPRESENTATIVE resident listed below with any questions, concerns, or if patient has not met PACU discharge criteria in 2-3 hours. . Please page first. Alla Dickerson DO OUTBOUND TELEMARKETING REPRESENTATIVE Resident PGY3 Pager: [phone] [facility] 06/15/2021, 9:42 AM documented in this [employer] Phone: [phone] Hospital Discharge instructions* Instructions* Alla Dickerson DO [...] cleared by your physician documented in this [facility] Work Phone: 1([phone]) 475-366109-01-2021 Hospital Discharge instructions* Instructions* Na Cabezas APRN - EAP CLINICIAN - 05/12/2021 Pre-operative Instructions Please arrive at [...] public transportation ALONE is not acceptable. -Your commercial trailer truck driver must be 18 years of [...] Day of Surgery/Procedure As a patient at [facility] you can expect quality medical and nursing care that is centered on your individual needs. Our goal is to make your surgical experience as comfortableas possible . Directions to the Surgery Center [facility] is located at [address] [place] [address]. Please pull into the Emergency/Surgery Center parking lot and stop at the [employer] richards. We offer free gas fitter apprentice service for all our surgery patients, if you choose not to have gas fitter apprentice parking we have additional parking across the [...] pharmacy bottles in a zip lock bag. [place] your teeth but do not swallow water. [...] DAY OF your surgery, you may call [phone] documented in this [facility] Phone: [phone]) 712-183509-01-2021 History of Present illness Narrative* Mandy Baker RN - 05/12/2021 1:30 PM EDT Medical clearance obtained for OR on 05/18/2021. * Na Cabezas APRN - EAP CLINICIAN - 05/12/2021 1:30 PM EDT Anesthesia Focused [...] (coronary artery disease) CHF (congestive heart failure) ([facility]) COPD (chronic obstructive pulmonary disease) ([facility]) Diabetes mellitus (HCC) Gastritis GERD (gastroesophageal reflux disease) History of stent insertion of renal artery Hx of blood clots Hyperlipidemia Hypertension IBS (irritable bowel syndrome) Pedal edema Pneumonia PVD (peripheral vascular disease) ([facility]) Thyroid disease Under care of team 05/12/2021 dr Hayden velez [place]-last visit apr 2021 Under care of team 05/12/2021 [facility] Varicose vein of leg Patient was evaluated in PAT & anesthesia guidelines were applied. NPO guidelines, medication instructions and scheduled arrival time were reviewed with patient. Anesthesia contacted: Yes I spoke with Dr. Antiporda. Patient history and pertinent findings reviewed. Patient with history of CAD, CHF, stress test and cardiac echo (results not in Epic, from outside provider), cardiac stentx 3. Last saw co founder and ceo in December 2020. On Eliquis and aspirin prescribed from her co founder and ceo. Medical or cardiac clearance ordered: cardiac FERNY Andres CNP 05/12/21 2:43 PM documented in this encounterAdvanced System Designs Phone: evaluation + Plan noteGeneral Surgery [employer] Evaluation + Plan note Future Appointments Appointment Date:11/08/2022 02:00:00 PM Scheduled Provider:Iliana GAGNON MD Location:[facility] Appointment Type:[place] [id number] General Surgery [employer] Evaluation + Plan note Future Appointments Appointment Date:11/22/2022 01:40:00 PM Scheduled Provider:Iliana GAGNON MD Location:[facility] Appointment Type:[place] [id number] General Surgery [employer] Evaluation note* Diagnosis Pre-op chest exam Pre-operative respiratory examination documented in this encounter [employer] Phone: evaleizlec note* Diagnosis S/p Partial vaginectomy with Ultrasonic Scalpel 06/15/21- 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, 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 documented in this encounter [employer] Phone: evalzdteug note* Diagnosis Pre-op chest exam Pre-operative respiratory examination documented in this encounter [employer] 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 documented in this encounter [employer] Phone: Evaluation note* Diagnosis 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, estrogen receptor positive (HCC)- Primary documented in this encounter [facility]* Diagnosis 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 breast in female, estrogen receptor positive (HCC)- Primary [facility] encounter [facility]* Diagnosis 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, estrogen receptor positive (HCC)- Primary Claudication in peripheral vascular disease (HCC) Peripheral vascular disease, unspecified documented in this encounter [facility] noteNo assessment information [facility] Work Phone: Evaluation noteNo InformationNort Nu-[employer] 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, estrogen receptor positive (HCC)- Primary Rash Rash and other nonspecific skin eruption Other eczema Stage 3a chronic kidney disease (HCC) documented in this encounter [facility]* Diagnosis 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, estrogen receptor positive (HCC)- Primary Stage 3a chronic kidney disease (HCC) documented in this encounter [facility]* Diagnosis Onset Date Resolution Status Altered mental status acuteDiabetes mellitusacuteEdema of both lower legsacuteInflammationacuteLeg ulcer, leftacuteLeg wound, rightacuteOpen wound of left thighacuteUses walker acuteVaricose veins of both legs with edemaacute [facility] Work Phone: Evaluation note* Diagnosis Onset Date Resolution Status Altered mental status acuteDiabetes mellitusacuteEdema of both lower legsacuteInflammationacuteLeg ulcer, leftacuteLeg wound, rightacuteOpen wound of left thighacutePAD (peripheral artery disease)acuteUses walkeracuteVaricose veins of both legs with edemaacute [facility] Work Phone: Evaluation note* Diagnosis Hav (hallux abducto valgus), left- Primary Venous insufficiency Unspecified venous (peripheral) insufficiency Acquired deformity of left toe 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 ([facility]) Diabetes mellitus due to underlying condition with diabetic polyneuropathy, 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 ([facility]) Pain due to onychomycosis of toenails of both feet documented [facility] this encounter [facility]* Diagnosis 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)- Primary Diabetes mellitus due to underlying condition with diabetic polyneuropathy, 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 (CMS/HCC) Pain due to onychomycosis of toenails of both feet Venous insufficiency Unspecified venous (peripheral) insufficiency Neoplasm of uncertain behavior of skin documented in this encounter [facility]* Diagnosis 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, estrogen receptor positive (HCC)- Primary documented in this encounter [facility] note* Diagnosis 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, estrogen receptor positive (HCC)- Primary Stage 3a chronic kidney disease (HCC) documented in this encounter [facility] note* Diagnosis Neoplasm of uncertain behavior of skin- Primary Diabetes mellitus due to underlying condition with diabetic polyneuropathy, 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 (CMS/HCC) Pain due to onychomycosis of toenails of both feet Venous insufficiency Unspecified venous (peripheral) insufficiency 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) documented in this encounter [facility] HealthcareEvaluation note* Diagnosis Neoplasm of uncertain behavior of skin- Primary Diabetes mellitus due to underlying condition with diabetic polyneuropathy, 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) Pain due to onychomycosis of toenails of both feet Venous insufficiency Unspecified venous (peripheral) insufficiency Acquired deformity of left toe documented in this encounter [facility] HealthcareEvaluation note* Diagnosis Onset Date Resolution Status Admit Date Osteoarthritis of right hip acuteNovember 2024 10:55am [facility] Work Phone: History general Narrative - Reported* Type Description Date Medical History DIABETES Medical HistoryHTNMedical HistoryASTHMAMedical History3 HEART STENT AND 1 LEG Medical HistoryHYPERLIPIDEMIAMedical HistoryHYPOTHYROIDMedical HistoryPAD Surgical HistorySTENT PLACEMENTSSurgical HistoryPSEUDO ANURYSMSurgical History BLADDER SUSPENSIONSurgical HistoryHYSTERECTOMYSurgical HistoryRLE & RT RENAL DSA'S, ANGIOPLASTIES & [id number] [employer] Other History general Narrative - Reported* Type Description Date Medical History DIABETES Medical HistoryHTNMedical HistoryASTHMAMedical History3 HEART STENT AND 1 LEG Medical HistoryHYPERLIPIDEMIAMedical HistoryHYPOTHYROIDMedical HistoryPAD Surgical HistorySTENT PLACEMENTSSurgical HistoryPSEUDO ANURYSMSurgical History BLADDER SUSPENSIONSurgical HistoryHYSTERECTOMYSurgical HistoryRLE & RT RENAL DSA'S, ANGIOPLASTIES & [id number] HistoryVAGINAL ABLASION OF CANCER CELLS [facility] Other Hospital course Narrative No data available for this section General Surgery [facility] Discharge instructions No data available for this section General Surgery [place] Progress note No data available for this section General Surgery [place] Reason for referral (narrative) Referred by: Iliana GAGNON MD Referred by: Iliana GAGNON MD General Surgery [place] Rezwda for referral (narrative)* Diagnostic Procedure Only (Routine) - Pending ReviewSpecialtyDiagnoses / ProceduresReferred By ContactReferred To ContactBR IMAGING Diagnoses 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, estrogen receptor positive (HCC) Procedures MAGNO DIAGNOSTIC BILATERAL DIAGNOSTIC MAMMOGRAPHY COMPUTER-AIDED DETCJ Winnie Farris PA-C [address] [place] [address] [place] [address] [facility] [address] [place] [phone] Referral IDStatusReasonStart DateExpiration DateVisits RequestedVisits [id number] Review Auto-Generated Referral / [facility] HospitalReason for referral (narrative)No reason for referral information availableWilson Street Hospital Work Phone: Reason for visit Narrative* Auth/CertSpecialty Diagnoses / ProceduresReferred By ContactReferred To Contact Diagnoses Vaginal dysplasia VAGINAL DYSPLASIA Procedures CT OFFICE/OUTPT VISIT,PROCEDURE ONLY CT COMPLETE REMOVAL OF VAGINA WALL CT CYSTOURETHROSCOPY CYSTOSCOPY, VAGINECTOMY Emma Garza MD [address] [facility] [address] [place] [address] [employer] [address] [place] [address] Referral IDStatusReasonStart DateExpiration DateVisits RequestedVisits [id number] [employer] Phone: Summary Purpose Family History No Family History Records Found Relationship Condition Age at Onset Recorded Date/T josephine father Unknown motherDeceasedUnknown Advance Directives No Advanced Directives Records FoundLatest Code Status on File Code StatusDate ActivatedDate InactivatedCommentsFull Code06/28/2022 6:57 AMType [...] lead Latonia Burks PA-C [address] [facility] [address] [place] [address] SpecialtyDiagnoses / ProceduresReferred By ContactReferred To ContactCardiology Diagnoses Pre-op chest exam Procedures EKG 12 lead Kimmie, Latonia, PA-C [address] [facility] [address] [place] [address] Referral IDStatusReasonStart DateExpiration DateVisits RequestedVisits [id number]/14/20223/[id number] / Procedures Referred By ContactReferred To ContactVascular Surgery Diagnoses Claudication in peripheral vascular disease (HCC) Procedures CONSULT TO VASCULAR SURGERY OFFICE/OUTPATIENT [facility] 60-74 MINUTES Wallace Stone MD [address] [place] [address] Referral IDStatusReasonStart DateExpiration DateVisits RequestedVisits [id number] PCP Requested Referral /[id number] / ProceduresReferred By ContactReferred To ContactDermatology Diagnoses Rash Other eczema Procedures CONSULT TO DERMATOLOGY OFFICE/OUTPATIENT [facility] 60-74 MINUTES Wallace Stone MD [address] [place] [address] Referral IDStatusReasonStart DateExpiration DateVisits RequestedVisits [id number] PCP Requested Referral / Chief Complaint and [...] back,knee, hip pain January 07, 2025 11:04am Chief Complaint Admit Date RA OA GOUT MEDS June 03, 2025 12:54pm TB CONSULT DR PERRY DAVID HIP PAIN WX [facility] N ov2024 10:55am Reason for Visit Admit Date Osteoarthritis of right hip July 10:55am Additional Source Comments INFORMATION SOURCE (unrecogn ized section and content) DATE CREATED AUTHOR 02/05/2021 [facility] DATE CREATED AUTHOR AUTHOR'S ORGANIZ ATION 01/22/2023 [facility] DATE CREATED AUTHOR AUTHOR'S ORGANIZ ATION 06/23/2023 [facility] DATE CREATED AUTHOR AUTHOR'S ORGANIZ ATION 07/13/2023 [facility] DATE CREATED AUTHOR AUTHOR'S ORGANIZ ATION 10/10/2024 [facility] DATE CREATED AUTHOR AUTHOR'S ORGANIZ ATION 06/19/2025 [facility] DATE CREATED AUTHOR AUTHOR'S ORGANIZ ATION 07/05/2025 [facility] DATE CREATED AUTHOR AUTHOR'S ORGANIZ ATION 07/19/2025 [facility] DATE CREATED AUTHOR AUTHOR'S ORGANIZ ATION 07/24/2025 [facility] Reason for Visit (unrecogniz ed section and content) StatusReasonSpecialtyDiagnoses / ProceduresReferred By ContactReferred To Contact Diagnoses 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 REMOVE VAGINA WALL, PARTIAL CT COLPOSCOPY,CERVIX W/ADJ VAGINA PARTICAL VAGINECTOMY WITH ULTRASONIC SCAPEL VAGINAL COLPOSCOPY WITH MICROSCOPE Kin Abarca MD [address] [facility] [address] [place] [address] [facility] SpecialtyDiagnoses / ProceduresReferred By ContactReferred To Contact Diagnoses Vaginal dysplasia VAGINAL DYSPLASIA Procedures CT OFFICE/OUTPT VISIT,PROCEDURE ONLY CT DESTRUCT,VAGINAL LESION(S),SIMPLE CO2 LASER VAPORIZATION OF LESIONS ([facility] CONF# [id number] - JEREMIAS) Emma Garza MD [address] [facility] [address] [place] [address] [facility] [address] [place] [address] Referral IDStatusReasonStart DateExpiration DateVisits RequestedVisits [id number] CoordinationSurgery updateReasonComments ConsultBreast CancerReasonCommentsBreast CancerReasonCommentsBreast CancerReason CommentsReferral [...] topically daily. 25 g bacitracin-polymyxin b (POLYSPORIN) 500-65205 UNIT/GM ointment Apply topically 2 times daily. 15 g / pramoxine HCl (PROCTOFOAM) 1 % foam Apply to hemorrhoids and anal area for postop pain as needed 15 g acetaminophen (TYLENOL) 500 MG tablet Take 2 tablets by mouth every 6 hours as needed for Pain 60 tablet / silver sulfADIAZINE (SILVADENE) 1 % cream Apply topically daily. 25 g pramoxine HCl (PROCTOFOAM) 1 % foam Apply to hemorrhoids and anal area for postop pain as needed 15 g bacitracin-polymyxin b (POLYSPORIN) 500-75746 UNIT/GM ointment Apply topically 2 times daily. [...] (Restarted - Provider: FERNY Moses CRNA) Medication Order 0.9 % sodium chloride infusion IntraVENous, at [...] DateEnd Date Mateus Perry MD [address] [place] [place] [address] PCP - GeneralFamily Medicine03/04/21Team MemberRelationshipSpecialtyStart DateEnd Date Mateus Perry MD [address] [place] [address] PCP - GeneralFamily Medicine03/04/21Team MemberRelationshipSpecialtyStart DateEnd Date Mateus Perry MD [address] [place] [address] PCP - GeneralFamily Medicine03/04/21Team MemberRelationshipSpecialtyStart DateEnd Date Mateus Perry MD [address] [place] [address] PCP - GeneralFamily Medicine03/04/21Team MemberRelationshipSpecialtyStart DateEnd Date Mateus Perry MD PCP - GeneralFamily Medicine01/05/17Team MemberRelationshipSpecialtyStart DateEnd Date Mateus Perry MD PCP - GeneralFamily Medicine01/05/17Team MemberRelationshipSpecialtyStart DateEnd Date Mateus Perry MD PCP - GeneralFamily Medicine01/05/17Team MemberRelationshipSpecialtyStart DateEnd Date Mateus Perry MD PCP - GeneralFamily Medicine01/05/17Team MemberRelationshipSpecialtyStart DateEnd Date Mateus Perry [facility]/17Team MemberRelationshipSpecialtyStart DateEnd Date Mateus Perry MD PCP - [facility]01/05/17Team MemberRelationshipSpecialtyStart DateEnd Date Mateus Perry MD [address] [place] [address] PCP - [facility]03/04/21 Team Status: Inactive Member Role Status Nila Perry MD Primary Care Provider Active Gemma Draper ProviderActiveTeam MemberRelationship SpecialtyStart DateEnd Date Mateus Perry MD PCP - [facility]01/05/17Team MemberRelationshipSpecialtyStart DateEnd Date Mateus Perry MD PCP - [facility]01/05/17 Team Status: Inactive Member Role Status Nila Perry MD Primary Care Provider Active Start: May 01, 2024 End: May 01, 2024Mattmonty Gonzales MDAttraghav ProviderActiveStart: May 01, 2024 End: May 01, 2024Team MemberRelationshipSpecialtyStart DateEnd Date Mateus Perry MD [address] [place] [address] PCP - [facility]02/14/24Team MemberRelationshipSpecialtyStart DateEnd Date Mateus Perry MD [address] [place] [address] PCP - GeneralFamily Medicine02/14/24Team MemberRelationshipSpecialtyStart DateEnd Date Mateus Perry MD [address] [place] [address] PCP - GeneralFamily Medicine02/14/24Team MemberRelationshipSpecialtyStart DateEnd Date Mateus Perry MD [address] [place] [address] PCP - Generalmily Medicine02/14/24Team MemberRelationshipSpecialtyStart DateEnd Date Mateus Perry MD PCP - GeneralFamily Medicine01/05/17Team MemberRelationshipSpecialtyStart DateEnd Date Mateus Perry MD PCP - GeneralFamily Medicine01/05/17Team MemberRelationshipSpecialtyStart DateEnd Date Mateus Perry MD PCP - GeneralFamily Medicine01/05/17Team MemberRelationshipSpecialtyStart DateEnd Date Mateus Perry MD [address] [place] [address] PCP - Generalmily Medicine02/14/24 Team Status: Inactive Member Role Status Nila Perry MD Primary Care Provider Active Start: January 07, 2025 End: January 07, 2025Mattmonty Mcdonnell MDAttraghav ProviderActiveStart: January 07, 2025 End: January 07, 2025 Team Status: Inactive Member Role Status Nila Perry MD Primary Care Provider Active Start: June 03, 2025 End: June 03, 2025Christiano Mcdonnell Gemma ProviderActiveStart: June 03, 2025 End: June 03, 2025 Team Status: Active Member Role/Relationship Status Dates Mateus Perry MD Primary Care Provider Active Team Status: Inactive Member Role/Relationship Status Dates Mateus Perry MD Primary Care Provider Active Start: June 03, 2025 End: June 03, 2025Christiano Mcdonnell ASHWINsuzannaraghav ProviderActiveStart: June 03, 2025 End: June 03, 2025 Team Status: Inactive Member Role/Relationship Status Dates Mateus Peryr MD Primary Care Provider Active Start: July 14, 2025 End: July 14, 2025Norman Reece ProviderActiveStart: July 14, 2025 End: July 14, 2025 Source Comments (unrecognize d section and content) In the event this informatio n is protected by the Federal Confidentiality of Alcohol and Drug Abuse Patient Records regulations: The Federal rules restrict any use of the information to criminally investigate or prosecute any alcohol or drug abuse patient.[facility] HospitalIn the event this information is protected by the Federal Confidentiality of Alcohol and Drug Abuse Patient Records regulations: The Federal rules restrict any use of the information to criminally investigate or prosecute any alcohol or drug abuse patient.[facility] HospitalIn the event this information is protected by the Federal Confidentiality of Alcohol and Drug Abuse Patient Records regulations: The Federal rules restrict any use of the information to criminally investigate or prosecute any alcohol or drug abuse patient.[facility] HospitalIn the event this information is protected by the Federal Confidentiality of Alcohol and Drug Abuse Patient Records regulations: The Federal rules restrict any use of the information to criminally investigate or prosecute any alcohol or drug abuse patient.[facility] HospitalIn the event this information is protected by the Federal Confidentiality of Alcohol and Drug Abuse Patient Records regulations: The Federal rules restrict any use of the information to criminally investigate or prosecute any alcohol or drug abuse patient.[facility] HospitalIn the event this information is protected by the Federal Confidentiality of Alcohol and Drug Abuse Patient Records regulations: The Federal rules restrict any use of the information to criminally investigate or prosecute any alcohol or drug abuse patient.[facility] HospitalIn the event this information is protected by the Federal Confidentiality of Alcohol and Drug Abuse Patient Records regulations: The Federal rules restrict any use of the information to criminally investigate or prosecute any alcohol or drug abuse patient.[facility] HospitalIn the event this information is protected by the Federal Confidentiality of Alcohol and Drug Abuse Patient Records regulations: The Federal rules restrict any use of the information to criminally investigate or prosecute any alcohol or drug abuse patient.[facility] HospitalIn the event this information is protected by the Federal Confidentiality of Alcohol and Drug Abuse Patient Records regulations: The Federal rules restrict any use of the information to criminally investigate or prosecute any alcohol or drug abuse patient.[facility] HospitalIn the event this information is protected by the Federal Confidentiality of Alcohol and Drug Abuse Patient Records regulations: The Federal rules restrict any use of the information to criminally investigate or prosecute any alcohol or drug abuse patient.[facility] HospitalIn the event this information is protected by the Federal Confidentiality of Alcohol and Drug Abuse Patient Records regulations: The Federal rules restrict any use of the information to criminally investigate or prosecute any alcohol or drug abuse patient.[facility] Goals (unrecognized section and content) Goals [...] BE BASED ON THE PRIMARY CLINICAL RECORDS. [employer] [facility]. provides no warranty or guarantee of the accuracy or completeness of information in this document.
[2025-07-28 08:17] VITALS: BP 134/84; PULSE 76; TEMP 36.6; O2SAT 98
[2025-07-28 08:41] VITALS: BP 164/77; PULSE 75; O2SAT 97
[2025-07-28 08:43] VITALS: BP 168/79; PULSE 75; O2SAT 95
[2025-07-28] MEDS: 0.9 % SODIUM CHLORIDE 10 ML SYRINGE - SALINE FLUSH INJ (08:43)
[2025-07-28] MEDS: BUPIVACAINE HCL 0.25% PF 25 MG/10 ML VIAL INJ (08:43)
[2025-07-28] MEDS: IOHEXOL 240 MG/ML - 10 ML VIAL 24 MG INJ (08:44)
[2025-07-28] MEDS: LIDOCAINE HCL 2% 400 MG/20 ML MDV 3 ML INJ (08:44)
[2025-07-28] MEDS: METHYLPREDNISOLONE ACETATE 80 MG/ML VIAL INJ (08:44)
--- NOTE | 2025-07-28 08:49 | W.PM.PROCNOT ---
Date of procedure: 07/28/25 Pre-op diagnosis: Pain due to lumbar stenosis with neurogenic claudication Post-op diagnosis: same as pre-op Procedure: Procedure: Bilateral L4-5 transforaminal epidural steroid injection Medications: Bupivacaine 0.25% 2cc, lidocaine 2% 1cc, depomedrol 80mg The patient was seen and examined in the preoperative holding area.? Informed consent was obtained and placed on the chart.? Patient was brought to the medical procedure unit and placed in the prone position where a timeout was completed verifying the correct patient, procedure site, position, and planned special equipment using sterile aseptic technique.? Under direct fluoroscopic visualization a 25-gauge Quincke tipped spinal needle was advanced at level bilateral L4-5 to the designated neural foramen where contrast dye was injected to show adequate spread.? There was no evidence of vascular or adverse uptake.? Epidural spread was appreciated.? The above-mentioned injectate was then placed in a 1.5 mL aliquot preceded by negative aspiration.? The needle was removed. The same procedure, at the same level, was completed on the opposite side. ? Patient was taken to the postprocedural recovery area and monitored for an appropriate length of time before found suitable for discharge in the accompaniment of a responsible adult. Anesthesia: Local Surgeon: Jefferson Farmer Pathology: none sent Condition: stable Disposition: no change
== END 2025-07-28 08:58 | disposition home or self-care (01) ==
PROVIDERS: PCP Family Medicine; Visit Provider Anesthesiology
DX: M48.062 Spinal stenosis, lumbar region with neurogenic claudication (principal); E11.9 Type 2 diabetes mellitus without complications
CPT/HCPCS: 36415; 64483; J0665; J1010; Q9966

== ENCOUNTER 2025-08-04 09:46 | Day surgery (SDC) | payer MEDICARE, OTHER, SELFPAY ==
--- OUTSIDE RECORDS SUMMARY | 2025-08-04 09:50 | XMS_ITS | Clinical Summary ---
Author Organization [facility] Address [address] [place] [address] Care Team Providers Care Collator Name Role Phone Gil Blake MD Primary Care Provider [phone] Allergies Active AllergyReactionsCriticalityNoted DateCommentsCefdinirOther: See Comments, Owwvgrxl41/03/2023CiprofloxacinOther: See Aynvomhq04/19/2018 tendon issues Oxycodone-AcetaminophenIntolerance,GI Upset03/31/2013TramadolMental Status Apawcc8311/09/2022 Medications MedicationSigDispense QuantityRefillsLast FilledStart DateEnd DateStatus amLODIPine [...] daily at bedtime. Cut in half Active Dqcnk-9-HXI-EPA-Fish Oil 1,000 mg (120 mg-180 mg) cap [...] Problems ProblemNoted DateDiagnosed DateStage 3a chronic kidney blbkbwu2502/14/2023VAIN II (vaginal intraepithelial neoplasia grade II)10/13/2017 Overview (10/13/2017): Added automatically from request for surgery [id number] Vaginal jvpvmm1501/20/2017Essential bywifdzuuool12/08/2017Type 2 diabetes mellitus without complication, without long-term current use of sestulp4701/16/2017 Rarpibjqyoogyt08/08/1733Qgpjujxnpsin53/08/2017Atherosclerosis of [place] coronary artery of [place] heart without angina ebkyxvhh24/08/2017S/P coronary artery stent dsyqdxihw50/08/2017Moderate smoker (20 or less per day)01/16/2017PAD (peripheral [...] drink = 0.6 oz pure alcohol)PHQ-2AnswerDate RecordedPHQ-2 jmyqj5903Area Deprivation Index AnswerDate RecordedNational Score (1-100), lower number is lower risk78 02/14/2023State Score (1-10), lower number is lower bjjg724/ata from: https://www.neighborhoodatlas.medicine.[facility].edu/. Last address used for [address] [place] [address]/14/2023CommentsNoSex and Gender Information ValueDate RecordedSex Assigned at BirthNot on fileLegal SywTfboqq33/27/2017 11:34 AM EDTGender IdentityNot on fileSexual OrientationNot on file Last Filed Vital Signs Vital SignReadingTime TakenCommentsBlood Bfaituti531/63010/08/2024 1:02 PM EST Lhfhq475710/08/2024 1:02 PM NJFWzpzhiwhkdp07.2 ??C (97.2 ??F)10/08/2024 1:02 PM ESTRespiratory Iwhr681410/08/2024 1:02 PM ESTOxygen Gbqhfdqkyo88%10/08/2024 1:02 PM ESTInhaled Oxygen Concentration--Amtatk42.5 kg (148 lb 13 oz)10/08/2024 1:02 PM XHSYgyldv182.9 cm (5' 0.98 )10/08/2024 1:02 PM ESTBody Mass Index28.13 10/08/2024 1:02 PM EST Plan of Treatment Health MaintenanceDue DateLast DoneCommentsDiabetic Foot Exam3Dilated Retinal Exam1952Urine Albumin:Creatinine Ratio3Anxiety Screening 1960epression Kmdylxcdv86/26/1961LDL Qcnjmdltgqf34/26/1961TaP,Tdap,Td Vaccine (1 - Tdap)1961hingrix Vaccine (1 of 2)1992Medicare Annual Wellness Visit09/11/2007one Density Fzacfwlzi22/26/2008RSV Vaccine (1 - 1-dose 75+ series)2017Pneumococcal Vaccine: 50+ (2 of 2 - PCV)01/19/2018 01/19/2017, 06/15/20108245WaM7X40///Advance Directive Discussion 5Covid-19 Vaccine ( - season)/06/2021, 11/06/2020, 10/09/2020Influenza Vaccine (#1)/, 06/10/2020, 06/07/2017, Additional history exists Medical Devices ImplantedTypeAreaManufacturerDevice IdentifierShelf Expiration DateModel / Serial / LotIntraocular LensIntraocular LensEye - LensStentStentChest Procedures Procedure NamePriorityDate/TimeAssociated DiagnosisCommentsHEMOGLOBIN E0FLzfmjmn 04/28/2020 1:36 PM EDT Type 2 diabetes mellitus with unspecified complications (HCC) Pre-op evaluation from Last 3 Months or Most Recently Relevant to Health Maintenance Results * (ABNORMAL) HGB A1C (04/28/2020 1:36 PM EDT)ComponentValueRef RangeTest Method Analysis TimePerformed AtPathologist SignatureHemoglobin A1C6.8(H)4.3 - 5.6 % 04/28/2020 9:23 PM EDTCleveland Clinic LaboratoriesComment: [place] Diabetes Association guidelines indicate that patients with HgbA1c in the range 5.7-6.4% are at increased risk for development of diabetes, and intervention by lifestyle modification may be beneficial. HgbA1c greater or equal to 6.5% is considered diagnostic of diabetes. Estimated Average Qafffxs852fy/dL04/28/2020 9:23 PM EDTCProtestant Hospital LaboratoriesComment: eAG: (Estimated average glucose) is a calculated value from HgbA1c and is labor representative of the average blood glucose level in the last 2-3 month period. Specimen (Source)Anatomical Location / LateralityCollection Method / Volume Collection TimeReceived TimeBlood specimen (specimen)WHOLE BLOOD SPECIMEN / Qitjxxw8504/28/2020 1:36 PM EDT04/28/2020 1:38 PM EDT Narrative Authorizing ProviderResult TypeResult StatusAndping Balderrama MDLABORATORYFinal Result Performing OrganizationAddressCity/State/ZIP CodePhone Number [facility] [address] [place] [address] [facility] [address] [place] [address] from Last 3 Months or Most Recently Relevant to Health Maintenance Insurance Advance Directives TypeDate RecordedPatient RepresentativeExplanationAdvance Directive(s)01/16/2017 3:59 PM Care Teams Team MemberRelationshipSpecialtyStart DateEnd Gil Blake MD PCP - GeneralFamily Medicine01/05/17
--- OUTSIDE RECORDS SUMMARY | 2025-08-04 09:50 | XMS_ITS | Patient Health Record ---
Author Organization [facility] in [place] Address [address] [place] [address] Care Team Providers Care Patient Registrar Name Role Phone Rony Blake Primary Care Provider [phone] Allergies Allergen (clinical drug ingredient) Drug/Non Drug [...] Interpretation: Performing Lab: Notes/Report: COLOR pale yellow CLARITYCLEARGLUCOSENEGBILIRUBINNEGKETONENEGSPECIFIC GRAVITY1.477IATRXRDWYW9 PROTEINNEGUROBILINOGENNEGNITRITENEGLEUKOCYTE ESTERASETRACEAMYLASE Reviewed date:03/19/2025 12:50:19 PM Interpretation: Performing Lab: Notes/Report: [facility] ,Qdnrbei0472-052 U/LPerforming Lab:see noteML - [facility] LBCBC AUTO DIFF Reviewed date:03/19/2025 12:50:19 PM Interpretation: Performing Lab: Notes/Report: [facility] ,White Blood Count8.74.0-11.0 10 3/uLRed Blood Count3.074.20-5.40 10 6/uL Hemoglobin9.812.0-16.0 g/fMVnwrriqvns33.736.0-48.0 %Mean Corpuscular Qonuya20.7 81.0-99.0 fLMean Corpuscular Rrshkwgpra95.926.7-34.0 pgMean Corpuscular HGB Conc 33.029.9-35.2 g/dLRed Cell Distribution Width13.911.0-15.0 %Platelet Pjoaj385 150-450 10 3/uLMean Platelet Dsrhab23.19.5-13.5 fLNeutrophils Percent Auto59.4 43.0-75.0 %Lymphocytes Percent Auto22.220.5-60.0 %Monocytes Percent Auto14.01.7- 12.0 %Eosinophils Percent Auto3.10.9-7.0 %Basophils Percent Auto0.50.2-2.0 % Immature Granulocytes Pct Auto0.80.0-0.5 %Neutrophils Absolute Auto5.11.4-6.5 10 3/uLLymphocytes Absolute Auto1.91.2-3.8 10 3/uLMonocytes Absolute Auto1.20.3-0.8 10 3/uLEosinophils Absolute Auto0.30.0-0.7 10 3/uLBasophils Absolute Auto0.00.0- 0.1 10 3/uLImmature Granulocytes Abs Auto0.070.00-0.03 10 3/uLPerforming Lab:see noteML - [facility] LBLIPASE Reviewed date:03/19/2025 12:50:19 PM Interpretation: Performing Lab: Notes/Report: [facility] ,Takzys26.016.0-77.0 U/LPerforming Lab:see noteML - [facility] LBPROF 14(COMP METB) Reviewed date:03/19/2025 12:50:19 PM Interpretation: Performing Lab: Notes/Report: [facility] ,Ykfhnd421168-671 mmol/LPotassium3.03.5-5.1 mmol/EZuuvmthf48651-188 mmol/LCarbon Qdqvchg51.021.0-32.0 mmol/LAnion Gap14.9Macyqhg73415-377 mg/dLBlood Urea Jtlibkwk44.07.0-18.0 mg/dLCreatinine1.800.55-1.02 mg/dLEstimated GFR ( Rjgkntx32>=60 mL/min/1.73m 2Estimated GFR (Non- Ame27>=60 mL/min/1.73m 2 BUN Creatinine Ratio15.4Clmczyg9.18.5-10.1 mg/dLBilirubin Total0.50.2-1.0 mg/dL Aspartate Amino Wdudwhgeqpi0139-31 U/LAlanine Psmeuwrijjztkbbv9635-41 U/L Alkaline Zfivvqzqhaq73792-259 U/LTotal Protein7.06.4-8.2 g/dLAlbumin Level2.9 3.4-5.0 g/dLGlobulin4.1Albumin Globulin Ratio0.7Performing Lab:see noteML - [facility] LBLACTATE or LACTIC ACID Reviewed date:09/06/2024 05:50:32 PM Interpretation: Performing Lab: Notes/Report: [facility] ,Lactate/Lactic Acid1.30.4-2.0 mmol/LPerforming Lab:see noteML - [facility] LBCBC AUTO DIFF Reviewed date:09/23/2024 10:46:47 AM Interpretation: Performing Lab: Notes/Report: [facility] ,White Blood Count7.34.0-11.0 10 3/uLRed Blood Count3.414.20-5.40 10 6/uL Ozsbsypbat46.312.0-16.0 g/vQVzguxrieeg93.236.0-48.0 %Mean Corpuscular Osjhgb26.4 81.0-99.0 fLMean Corpuscular Pskwzaxhpi43.226.7-34.0 pgMean Corpuscular HGB Conc 32.029.9-35.2 g/dLRed Cell Distribution Width14.811.0-15.0 %Platelet Stosw759 150-450 10 3/uLMean Platelet Volume8.99.5-13.5 fLNeutrophils Percent Auto56.7 43.0-75.0 %Lymphocytes Percent Auto27.920.5-60.0 %Monocytes Percent Auto8.51.7- 12.0 %Eosinophils Percent Auto6.00.9-7.0 %Basophils Percent Auto0.50.2-2.0 % Immature Granulocytes Pct Auto0.40.0-0.5 %Neutrophils Absolute Auto4.21.4-6.5 10 3/uLLymphocytes Absolute Auto2.01.2-3.8 10 3/uLMonocytes Absolute Auto0.60.3-0.8 10 3/uLEosinophils Absolute Auto0.40.0-0.7 10 3/uLBasophils Absolute Auto0.00.0- 0.1 10 3/uLImmature Granulocytes Abs Auto0.030.00-0.03 10 3/uLPerforming Lab:see noteML - [facility] LBFREE T3 Reviewed date:09/23/2024 10:46:47 AM Interpretation: Performing Lab: Notes/Report: [facility] ,Free T32.322.18-3.98 pg/mLPerforming Lab:see noteML - [facility] LB IRON Reviewed date:09/23/2024 10:46:47 AM Interpretation: Performing Lab: Notes/Report: [facility] ,Iron56.050.0-170.0 ug/dLPerforming Lab:see note - [facility] LB LIPID PROFILE Reviewed date:09/23/2024 10:46:47 AM Interpretation: Performing Lab: Notes/Report: [facility] ,Mwwstywkavltf365<=150 mg/gWMemsapmnujj719<=200 mg/dLHDL Udwawqwzsqh4239-37 mg/dL > or =60 mg/dl - LOW CARDIOVASCULAR RISK <40 mg/dl - HIGH CARDIOVASCULAR RISK LDL Cholesterol Lhddrikyma44.0 <100 mg/dl OPTIMAL 100-129 mg/dl NEAR OR ABOVE OPTIMAL 130-159 mg/dl BORDERLINE HIGH 160-189 mg/dl HIGH >190 mg/dl VERY HIGH VLDL WXCAXAMANFH68.4Chol HDL Ratio2.5 3.3 - 4.4 LOW RISK 4.4 - 7.1 AVERAGE RISK 7.1 - 11.0 MODERATE RISK >11.0 HIGH RISK Performing Lab:see note - [facility] LBPROF 14(COMP METB) Reviewed date:09/23/2024 10:46:47 AM Interpretation: Performing Lab: Notes/Report: [facility] ,Kkauru349835-595 mmol/LPotassium3.43.5-5.1 mmol/SVsxfvpvg12586-610 mmol/LCarbon Blxbbpy86.621.0-32.0 mmol/LAnion Gap9.0Jcsidzb72495-702 mg/dLBlood Urea Nitrogen 23.07.0-18.0 mg/dLCreatinine1.250.55-1.02 mg/dLEstimated GFR ( Xrqvwsf71 >=60 mL/min/1.73m 2Estimated GFR (Non- Ame41>=60 mL/min/1.73m 2BUN Creatinine Ratio18.4Ejeqbsf2.68.5-10.1 mg/dLBilirubin Total0.50.2-1.0 mg/dL Aspartate Amino Wlhursamgml2731-10 U/LAlanine Abgxkmbjmkbysmet7275-06 U/L Alkaline Cwiqdhpzfig5582-092 U/LTotal Protein6.86.4-8.2 g/dLAlbumin Level3.03.4- 5.0 g/dLGlobulin3.8Albumin Globulin Ratio0.8Performing Lab:see noteML - [facility] LBT4 Reviewed date:09/23/2024 10:46:47 AM Interpretation: Performing Lab: Notes/Report: [facility] ,T4 Thyroxine9.504.80-13.90 ug/dLPerforming Lab:see note - [facility] LBTSH Reviewed date:09/23/2024 10:46:47 AM Interpretation: Performing Lab: Notes/Report: [facility] ,Thyroid Stimulating Hormone0.1190.358-3.740 uIU/mLPerforming Lab:see note - [facility] LBVITAMIN D 25 [place] Reviewed date:09/23/2024 01:16:30 PM Interpretation: Performing Lab: Notes/Report: [facility] ,Vitamin D81.3 <20 ng/mL Vit D deficient 20-<30 ng/mL Vit D insufficient 30-100 ng/mL Vit D sufficient >100 ng/mL Potential Toxicity Performing Lab:see note - [facility] LBCT lumbar spine wo con Reviewed date:03/10/2025 09:07:23 PM Interpretation: Performing Lab: Notes/Report: Source Facility: [place] [address] [place] [address] CT Scan Report Signed Patient: OSCAR HORTA MR#: [id number] : 1940 Acct:[id number] Age/Sex: 84 / F ADM Date: 03/10/25 Loc: RAD Attending Dr: Kassandra Thomas NP Ordering Physician: Kassandra Thomas NP Date of Service: 03/10/25 Procedure(s): CT lumbar spine wo con Accession Number(s): [id number] cc: Mateus Blake M.D. [facility] [place] [address] Patient Name: OSCAR HORTA MRN: [id number] date: 1940 Sex: F Assigned Patient Location: [facility] Current Patient Location: [facility] Accession/Order Number: [id number] Exam Date: 03/10/2025 13:07 Report Date: 03/10/2025 [...] Jr., D.OMedardo 03/10/2025 1:13 PM Dictation Location: [place] [address] Electronically authenticated by: [id number] Y Date: 03/10/2025 13:13 Dictated By: Butch Quinones M.D. Signed By: 03/10/25 1315 DD/ 131 TD/TT: Wallcovering Texturer:AMYLASE Reviewed date:03/19/2025 06:23:50 PM Interpretation: Performing Lab: Notes/Report: [facility] ,Vxxzylc4396-760 U/LPerforming Lab:see noteML - [facility] LBFERRITIN Reviewed date:03/20/2025 06:20:42 PM Interpretation: Performing Lab: Notes/Report: Comment Add to an already drawn sample [facility] ,Maxkrsgk312.08.0-252.0 ng/mLPerforming Lab:see noteML - [facility] LBIRON AND TIBC Reviewed date:03/20/2025 06:20:42 PM Interpretation: Performing Lab: Notes/Report: Comment Add to an already drawn sample [facility] ,Iron55.050.0-170.0 ug/dLTotal Iron Binding Vesppewu197.0250.0-450.0 ug/dL Percent Iron Zzbiadeykw64.1Performing Lab:see noteML - [facility] LB LIPASE Reviewed date:03/19/2025 06:23:50 PM Interpretation: Performing Lab: Notes/Report: [facility] ,Znojxo837.016.0-77.0 U/LPerforming Lab:see noteML - [facility] LB LIVER PROFILE Reviewed date:03/19/2025 06:23:50 PM Interpretation: Performing Lab: Notes/Report: [facility] ,Bilirubin Total0.50.2-1.0 mg/dLBilirubin Direct0.10.0-0.2 mg/dLAspartate Amino Yaurvxzgcrv9181-58 U/LAlanine Vbgpjnetezfnulzy6589-18 U/LAlkaline Pmoahxvqfmf521 46-116 U/LTotal Protein7.06.4-8.2 g/dLAlbumin Level2.93.4-5.0 g/dLGlobulin4.1 Albumin Globulin Ratio0.7Performing Lab:see noteML - [facility] LB Blood Culture 1 Reviewed date:03/25/2025 05:05:47 PM Interpretation: Performing Lab: Notes/Report: LEFT AC - AEROBIC ONLY [facility] ,Blood Culture 1See Below For Report Blood Culture 1 NG5D NO GROWTH AT 5 DAYS.^NO GROWTH AT 5 DAYS. Performing Lab:see note - [facility] LBBlood Culture 2 Reviewed date:03/25/2025 05:05:47 PM Interpretation: Performing Lab: Notes/Report: LEFT WRIST - PEDS [facility] ,Blood Culture 2See Below For Report Blood Culture 2 NG5D NO GROWTH AT 5 DAYS.^NO GROWTH AT 5 DAYS. Performing Lab:see note - [facility] LBCampylobacter Culture Reviewed date:03/25/2025 05:05:47 PM Interpretation: Performing Lab: Notes/Report: [facility] ,Campylobacter CultureSee Below For Report Campylobacter Culture No Campylobacter species isolated. Performing Lab:see noteLC - [facility] LBECG 12 lead Reviewed date:03/20/2025 06:20:42 PM Interpretation: Performing Lab: Notes/Report: Source Facility: [place] [address] Electrocardiograph Report Signed Patient: OSCAR HORTA MR#: [id number] : 1940 Acct:[id number] Age/Sex: 84 / F ADM Date: 03/19/25 Loc: [place] 217-[address]: Marly Arredondo M.D. Ordering Physician: Juliet German M.D. 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 Signed By: 03/20/25 1036 DD/ 1528 TD/TT: [employer]covering Texturer:[employer]AT[employer] Reviewed date:03/20/2025 06:20:42 PM Interpretation: Performing Lab: Notes/Report: [facility] ,Hemoglobin8.112.0-16.0 g/fYGdsyrerutu34.436.0-48.0 %Performing Lab:see noteML - [facility] LBLIPASE Reviewed date:03/20/2025 06:20:42 PM Interpretation: Performing Lab: Notes/Report: [facility] ,Erodma29.016.0-77.0 U/LPerforming Lab:see noteML - [facility] LBPROF 14(COMP METB) Reviewed date:03/20/2025 06:20:42 PM Interpretation: Performing Lab: Notes/Report: [facility] ,Zqilll199311-861 mmol/LPotassium2.93.5-5.1 mmol/L RESULTS CALLED TO JAMES SIGALA RN @BY Crystal Hatfield at 0613 Egzkmzls19709-027 mmol/LCarbon Gslvkwa75.021.0-32.0 mmol/LAnion Gap10.9Glucose 02914-215 mg/dLBlood Urea Euzmxehs97.07.0-18.0 mg/dLCreatinine2.070.55-1.02 mg/dLEstimated GFR ( Kidrwgu65>=60 mL/min/1.73m 2Estimated GFR (Non- Ame23>=60 mL/min/1.73m 2BUN Creatinine Ratio15.5Sujjedg6.58.5-10.1 mg/dL Bilirubin Total0.30.2-1.0 mg/dLAspartate Amino Ahxtvomzalu9336-99 U/LAlanine Cfuajdlrapztwflp7177-61 U/LAlkaline Qcqimgeyeek5675-171 U/LTotal Protein5.86.4- 8.2 g/dLAlbumin Level2.23.4-5.0 g/dLGlobulin3.6Albumin Globulin Ratio0.6 Performing Lab:see note - [facility] LBCBC no Diff (Hemogram) Reviewed date:03/20/2025 06:20:42 PM Interpretation: Performing Lab: Notes/Report: [facility] ,White Blood Count6.54.0-11.0 10 3/uLRed Blood Count2.674.20-5.40 10 6/uL Hemoglobin8.312.0-16.0 g/zBBzkgkwwphr43.536.0-48.0 %Mean Corpuscular Hyqsum39.5 81.0-99.0 fLMean Corpuscular Kgvxoavyjw96.126.7-34.0 pgMean Corpuscular HGB Conc 32.529.9-35.2 g/dLRed Cell Distribution Width14.011.0-15.0 %Platelet Bsoid793 150-450 10 3/uLMean Platelet Volume9.79.5-13.5 fLPerforming Lab:see noteML - [facility] LBType and Screen Reviewed date:03/20/2025 06:20:42 PM Interpretation: Performing Lab: Notes/Report: [facility] ,Blood TypeA PositiveAntibody ScreenNEGATIVEMAGNESIUM Reviewed date:03/21/2025 01:03:12 PM Interpretation: Performing Lab: Notes/Report: Comment Add to an already drawn sample [facility] ,Magnesium1.11.8-2.4 mg/dLPerforming Lab:see note - [facility] LB PROF 14(COMP METB) Reviewed date:03/23/2025 03:38:42 PM Interpretation: Performing Lab: Notes/Report: [facility] ,Uhgwbk907401-296 mmol/LPotassium5.03.5-5.1 mmol/QObbspwzl72880-209 mmol/LCarbon Rwvawpz29.421.0-32.0 mmol/LAnion Gap12.9Xbvqvvg17350-435 mg/dLBlood Urea Rzoyvgqg02.07.0-18.0 mg/dLCreatinine1.520.55-1.02 mg/dLEstimated GFR ( Vuazxhn42>=60 mL/min/1.73m 2Estimated GFR (Non- Ame33>=60 mL/min/1.73m 2 BUN Creatinine Ratio13.8Tqwwbue3.88.5-10.1 mg/dLBilirubin Total0.50.2-1.0 mg/dL Aspartate Amino Dufomihmwmy2783-12 U/LAlanine Thpyfstimqgklcxs2795-99 U/L Alkaline Bolqoltewsd22989-626 U/LTotal Protein5.96.4-8.2 g/dLAlbumin Level2.3 3.4-5.0 g/dLGlobulin3.6Albumin Globulin Ratio0.6Performing Lab:see noteML - [facility] LBCBC no Diff (Hemogram) Reviewed date:03/23/2025 03:38:42 PM Interpretation: Performing Lab: Notes/Report: [facility] ,White Blood Count8.64.0-11.0 10 3/uLRed Blood Count2.894.20-5.40 10 6/uL Hemoglobin9.012.0-16.0 g/cIIyfgabkctn42.736.0-48.0 %Mean Corpuscular Pnhnjh05.3 81.0-99.0 fLMean Corpuscular Ygrysiiixp42.126.7-34.0 pgMean Corpuscular HGB Conc 31.429.9-35.2 g/dLRed Cell Distribution Width14.811.0-15.0 %Platelet Tmpjt866 150-450 10 3/uLMean Platelet Ncfiio57.09.5-13.5 fLPerforming Lab:see noteML - [facility] LBPHOSPHORUS Reviewed date:03/23/2025 03:38:42 PM Interpretation: Performing Lab: Notes/Report: [facility] ,Phosphorus3.52.6-4.7 mg/dLPerforming Lab:see note - [facility] LB PROF 14(COMP METB) Reviewed date:03/23/2025 03:38:42 PM Interpretation: Performing Lab: Notes/Report: [facility] ,Unlhue511619-039 mmol/LPotassium5.33.5-5.1 mmol/MFosgguvd41602-122 mmol/LCarbon Ovzsond37.321.0-32.0 mmol/LAnion Gap14.5Dxspddx9155-768 mg/dLBlood Urea Nitrogen 22.07.0-18.0 mg/dLCreatinine1.630.55-1.02 mg/dLEstimated GFR ( Cgyhfvz39 >=60 mL/min/1.73m 2Estimated GFR (Non- Ame30>=60 mL/min/1.73m 2BUN Creatinine Ratio13.8Coqftde9.08.5-10.1 mg/dLBilirubin Total0.90.2-1.0 mg/dL Aspartate Amino Ifysnrpbueh06937-02 U/LAlanine Esoqyfstnckymnzw0672-75 U/L Alkaline Gluroolhvls8576-500 U/LTotal Protein5.56.4-8.2 g/dLAlbumin Level1.93.4- 5.0 g/dLGlobulin3.6Albumin Globulin Ratio0.5Performing Lab:see noteML - [facility] LBCBC no Diff (Hemogram) Reviewed date:03/23/2025 03:38:42 PM Interpretation: Performing Lab: Notes/Report: [facility] ,White Blood Count9.64.0-11.0 10 3/uLRed Blood Count3.084.20-5.40 10 6/uL Hemoglobin9.812.0-16.0 g/oVZxndmofmug04.136.0-48.0 %Mean Corpuscular Alfdma21.7 81.0-99.0 fLMean Corpuscular Uricwfemyg66.826.7-34.0 pgMean Corpuscular HGB Conc 32.629.9-35.2 g/dLRed Cell Distribution Width14.811.0-15.0 %Platelet Yalzx549 150-450 10 3/uLMean Platelet Dyqefi80.49.5-13.5 fLPerforming Lab:see noteML - [facility] LBXR lumbar spine min 4V Reviewed date:07/05/2025 03:17:55 PM Interpretation: Performing Lab: Notes/Report: Source Facility: [facility]-[address] [place] [address] [place] [address] XRay Report Signed Patient: OSCAR HORTA MR#: [id number] : 1940 Acct:[id number] Age/Sex: 84 / F ADM Date: 07/04/25 Loc: [facility] Attending Dr: Mateus Blake M.D. Ordering Physician: Mateus Blake M.D. Date of Service: 07/04/25 Procedure(s): XR lumbar spine min 4V Accession Number(s): [id number] cc: Mateus Blake M.D. [address] [id number] Patient Name: OSCAR HORTA MRN: [id number] date: 1940 Sex: F Assigned Patient Location: [facility] Current Patient Location: [facility] Accession/Order Number: [id number] Exam Date: 07/04/2025 11:45 Report Date: 07/04/2025 [...] Nowak M.D. 07/04/2025 9:24 PM Dictation Location: [place] [address] Electronically authenticated by: [id number] Y Date: 07/04/2025 21:24 Dictated By: Duong Nowak M.D. Signed By: 07/04/252126 DD/ 23 TD/TT: Wallcovering Texturer:XR hip BI w PEL 1V Reviewed date:07/05/2025 03:17:55 PM Interpretation: Performing Lab: Notes/Report: Source Facility: [facility]-[address] [place] [address] XRay Report Signed Patient: OSCAR HORTA MR#: [id number] : 1940 Acct:[id number] Age/Sex: 84 / F ADM Date: 07/04/25 Loc: [facility] Attending Dr: Mateus Blake M.D. Ordering Physician: Mateus Blake M.D. Date of Service: 07/04/25 Procedure(s): XR hip BI w PEL 1V Accession Number(s): [id number] cc: Mateus Blake M.D. [place] [address] Patient Name: OSCAR HORTA MRN: [id number] date: 1940 Sex: F Assigned Patient Location: [facility] Current Patient Location: [facility] Accession/Order Number: [id number] Exam Date: 07/04/2025 11:45 Report Date: 07/04/2025 [...] Nowak M.D. 07/04/2025 8:26 PM Dictation Location: [place] [address] Electronically authenticated by: [id number] Y Date: 07/04/2025 20:26 Dictated By: Duong Nowak M.D. Signed By: 07/04/252028 DD/ 25 TD/TT: Wallcovering Texturer:RICHARD knee DAVID 3V Reviewed date:07/05/2025 03:17:55 PM Interpretation: Performing Lab: Notes/Report: Source Facility: [facility]-[address] [place] [address] XRay Report Signed Patient: OSCAR HORTA MR#: [id number] : 1940 Acct:[id number] Age/Sex: 84 / F ADM Date: 07/04/25 Loc: [facility] Attending Dr: Mateus Blake M.D. Ordering Physician: Mateus Blake M.D. Date of Service: 07/04/25 Procedure(s): XR knee DAVID 3V Accession Number(s): [id number] cc: Mateus Blake M.D. [place] [address] Patient Name: OSCAR HORTA MRN: [id number] date: 1940 Sex: F Assigned Patient Location: [facility] Current Patient Location: Accession/Order Number: [id number] Exam Date: 07/04/2025 11:45 Report Date: 07/05/2025 09:07 At the request of: MATEUS BLAKE MD Procedure: XR knee DAIVD 3V 3 views both knees HISTORY: Fell June 12. Bilateral knee pain Right vascular stent present. Atherosclerosis. Adequate bony alignment without acute displaced fracture. No significant joint effusion. Extensive medial left knee degeneration. Bilateral patellar enthesophytes. Unremarkable soft tissues. XR/XR knee DAVID 3V IMPRESSION: No acute displaced fracture. Impression dictated by: Sudhir Garrett M.D. 07/05/2025 9:07 AM Dictation Location: [place] [address] Electronically authenticated by: [id number] Y Date: 07/05/2025 09:07 Dictated By: Sudhir Garrett D.O. Signed By: 07/05/25909 DD/ 6 TD/TT: Wallcovering Texturer:PATRICIA-19, Flu A+B IH Reviewed date:03/10/2025 09:07:23 PM Interpretation: Performing Lab: Notes/Report: COVID-FLU A-FLU B-Control+UA DIP NONAUTO WO MICRO (87643) - IN OFFICE Reviewed date:03/10/2025 09:07:23 PM Interpretation: Performing Lab: Notes/Report: COLORlight yellowCLARITYclearGLUCOSEnegBILIRUBINnegKETONEnegSPECIFIC GRAVITY 1.721IZADMszfAE7SLFRRWRignQSVSDQZEWRRQlqpLXUZWWLwmjFVOCRTNEL ESTERASEnegBNP Reviewed date:09/23/2024 10:46:47 AM Interpretation: Performing Lab: Notes/Report: [facility] ,NT Pro B Type Natriuretic Cedw6359.0<=1800.0 pg/mLRESULTS CALLED TO TEE STEARNS LPN at 1037Performing Lab:see noteML - [facility] LBCBC AUTO DIFF Reviewed date:09/05/2024 05:55:22 PM Interpretation: Performing Lab: Notes/Report: [facility] ,White Blood Count14.24.0-11.0 10 3/uLRed Blood Count3.094.20-5.40 10 6/uL Hemoglobin9.512.0-16.0 g/vVBcgqyoeeez07.336.0-48.0 %Mean Corpuscular Qmbjjf10.8 81.0-99.0 fLMean Corpuscular Rwxcrcqoga47.726.7-34.0 pgMean Corpuscular HGB Conc 32.429.9-35.2 g/dLRed Cell Distribution Width14.511.0-15.0 %Platelet Cboeo728 150-450 10 3/uLMean Platelet Volume9.49.5-13.5 fLNeutrophils Percent Auto82.4 43.0-75.0 %Lymphocytes Percent Auto7.920.5-60.0 %Monocytes Percent Auto8.81.7- 12.0 %Eosinophils Percent Auto0.10.9-7.0 %Basophils Percent Auto0.20.2-2.0 % Immature Granulocytes Pct Auto0.60.0-0.5 %Neutrophils Absolute Auto11.71.4-6.5 10 3/uLLymphocytes Absolute Auto1.11.2-3.8 10 3/uLMonocytes Absolute Auto1.20.3- 0.8 10 3/uLEosinophils Absolute Auto0.00.0-0.7 10 3/uLBasophils Absolute Auto0.0 0.0-0.1 10 3/uLImmature Granulocytes Abs Auto0.080.00-0.03 10 3/uLPerforming Lab:see noteML - [facility] LBLACTATE or LACTIC ACID Reviewed date:09/05/2024 05:55:22 PM Interpretation: Performing Lab: Notes/Report: [facility] ,Lactate/Lactic Acid2.30.4-2.0 mmol/LRESULTS CALLED TO YANA SZYMANSKI Performing Lab:see noteML - [facility] LBPROF 14(COMP METB) Reviewed date:09/05/2024 05:55:22 PM Interpretation: Performing Lab: Notes/Report: [facility] ,Nnvneh037862-519 mmol/LPotassium4.63.5-5.1 mmol/PEltibjjn5154-474 mmol/LCarbon Lqiieou89.721.0-32.0 mmol/LAnion Gap14.9Wjbzkbp54457-631 mg/dLBlood Urea Omrwtyji56.07.0-18.0 mg/dLCreatinine2.060.55-1.02 mg/dLEstimated GFR ( Vsucinq02>=60 mL/min/1.73m 2Estimated GFR (Non- Ame23>=60 mL/min/1.73m 2 BUN Creatinine Ratio15.7Axuahmn9.08.5-10.1 mg/dLBilirubin Total0.50.2-1.0 mg/dL Aspartate Amino Mexggbgdyma8060-60 U/LAlanine Wmqaogvzvsbarnup324-86 U/LAlkaline Ekweczvnwoo0208-737 U/LTotal Protein6.76.4-8.2 g/dLAlbumin Level2.83.4-5.0 g/dL Globulin3.9Albumin Globulin Ratio0.7Performing Lab:see noteML - [facility] LBBlood Culture 1 Reviewed date:09/15/2024 05:13:49 PM Interpretation: Performing Lab: Notes/Report: [facility] ,Blood Culture 1See Below For Report Blood Culture 1 NG5D NO GROWTH AT 5 DAYS. Performing Lab:see noteML - [facility] LBBlood Culture 2 Reviewed date:09/15/2024 05:13:49 PM Interpretation: Performing Lab: Notes/Report: [facility] ,Blood Culture 2See Below For Report Blood Culture 2 NG5D NO GROWTH AT 5 DAYS. Performing Lab:see note - [facility] LBProthrombin Time INR Reviewed date:09/05/2024 05:55:22 PM Interpretation: Performing Lab: Notes/Report: [facility] ,Prothrombin Time12.79.0-11.6 secINR1.22 DESIRED INR: 2.0-3.0 CONDITIONS NOT LISTED BELOW 2.5-3.5 FOR PROSTHETIC HEART VALVE REPLACEMENT 2.5-3.5 RECURRENT THROMBOSIS Performing Lab:see note - [facility] LBTroponin I High Sensitivity Reviewed date:09/05/2024 05:55:22 PM Interpretation: Performing Lab: Notes/Report: [facility] ,Troponin I High Rwqxqxhqllo32.34.0-51.3 pg/mL CUT-OFF POINTS HAVE BEEN ESTABLISHED BASED ON THE FOURTH UNIVERSAL DEFINITION OF MYOCARDIAL INFARCTION. THE UPPER REFERENCE LIMIT (URL) OF TROPONIN, DEFINED THE 99TH PERCENTILE OF cTnI DISTRIBUTION IN A REFERENCE POPULATION, HAS BEEN CONFIRMED THE DECISION THRESHOLD FOR UT DIAGNOSIS. 99TH PERCENTILE = 51.4 PG/ML NOTE: HIGH-SENSITIVITY TROPONIN ASSAY IS NOT INTENDED TO BE USED IN ISOLATION BUT SHOULD BE INTERPRETED IN CONJUNCTION WITH OTHER DIAGNOSTIC AND CLINICAL INFORMATION. Performing Lab:see [facility] LBXR HAND LT MIN 3V Reviewed date:09/05/2024 05:59:46 PM Interpretation: Performing Lab: Notes/Report: Source Facility: [facility]-[address] [place] [address] [place] [address] XRay Report Signed Patient: OSCAR HORTA MR#: [id number] : 1940 Acct:[id number] Age/Sex: 83 / F ADM Date: 09/05/24 Loc: ER Attending Dr: Ordering Physician: Margie Tellez Date of Service: 09/05/24 Procedure(s): XR hand LT min 3V Accession Number(s): [id number] cc: Mateus Blake M.D.; Margie Tellez [place] [address] Patient Name: OSCAR HORTA MRN: [facility]:[id number] date: 1940 Sex: F Assigned Patient Location: ED.MAIN Current Patient Location: ED.MAIN Accession/Order Number: [id number] Exam Date: 09/05/2024 17:05 Report Date: 09/05/2024 [...] M.D. 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 Signed By: 09/08/24 0738 DD/ 1645 TD/TT: Wallcovering Texturer:XR chest 1V Reviewed date:09/05/2024 05:59:46 PM Interpretation: Performing Lab: Notes/Report: Source Facility: [place] [address] XRay Report Signed Patient: OSCAR HORTA MR#: [id number] : 1940 Acct:[id number] Age/Sex: 83 / F ADM Date: 09/05/24 Loc: ER Attending Dr: Ordering Physician: Margie Tellez Date of Service: 09/05/24 Procedure(s): XR chest 1V Accession Number(s): [id number] cc: Mateus Blake M.D.; Margie Tellez [place] [address] Patient Name: OSCAR HORTA MRN: [id number] date: 1940 Sex: F Assigned Patient Location: ER Current Patient Location: ED.MAIN Accession/Order Number: [id number] Exam Date: 09/05/2024 17:05 Report Date: 09/05/2024 [...] M.D. Signed By: 09/05/241753 DD/ 51 TD/TT: Wallcovering Texturer:US venous doppler UE RT Reviewed date:09/05/2024 07:46:10 PM Interpretation: Performing Lab: Notes/Report: Source Facility: [place] [address] Ultrasound Report Signed Patient: OSCAR HORTA MR#: [id number] : 1940 Acct:[id number] Age/Sex: 83 / F ADM Date: 09/05/24 Loc: ER Attending Dr: Ordering Physician: Margie Tellez Date of Service: 09/05/24 Procedure(s): US venous doppler UE LT Accession Number(s): [id number] cc: Mateus Blake M.D.; Margie Tellez [place] [id number] Patient Name: OSCAR HORTA MRN: [id number] date: 1940 Sex: F Assigned Patient Location: ER Current Patient Location: ER Accession/Order Number: [id number] Exam Date: 09/05/2024 17:50 Report Date: 09/05/2024 [...] M.D. Signed By: 09/05/241835 DD/ 33 TD/TT: Wallcovering Texturer:CBC AUTO DIFF Reviewed date:09/06/2024 05:50:32 PM Interpretation: Performing Lab: Notes/Report: [facility] ,White Blood Count9.94.0-11.0 10 3/uLRed Blood Count3.054.20-5.40 10 6/uL Hemoglobin9.412.0-16.0 g/aUSqbsvjavuh58.836.0-48.0 %Mean Corpuscular Bahdry66.4 81.0-99.0 fLMean Corpuscular Sfbyqchduq65.826.7-34.0 pgMean Corpuscular HGB Conc 32.629.9-35.2 g/dLRed Cell Distribution Width14.711.0-15.0 %Platelet Jgylh502 150-450 10 3/uLMean Platelet Volume9.59.5-13.5 fLNeutrophils Percent Auto69.9 43.0-75.0 %Lymphocytes Percent Auto18.120.5-60.0 %Monocytes Percent Auto10.41.7- 12.0 %Eosinophils Percent Auto0.70.9-7.0 %Basophils Percent Auto0.30.2-2.0 % Immature Granulocytes Pct Auto0.60.0-0.5 %Neutrophils Absolute Auto6.91.4-6.5 10 3/uLLymphocytes Absolute Auto1.81.2-3.8 10 3/uLMonocytes Absolute Auto1.00.3-0.8 10 3/uLEosinophils Absolute Auto0.10.0-0.7 10 3/uLBasophils Absolute Auto0.00.0- 0.1 10 3/uLImmature Granulocytes Abs Auto0.060.00-0.03 10 3/uLPerforming Lab:see noteML - [facility] LBMAGNESIUM Reviewed date:09/06/2024 05:50:32 PM Interpretation: Performing Lab: Notes/Report: [facility] ,Magnesium1.01.8-2.4 mg/dLPerforming Lab:see noteML - [facility] LB PROF 14(COMP METB) Reviewed date:09/06/2024 05:50:32 PM Interpretation: Performing Lab: Notes/Report: [facility] ,Vhrgoz789499-474 mmol/LPotassium4.23.5-5.1 mmol/DRhebboyo47162-478 mmol/LCarbon Tejyzpf54.121.0-32.0 mmol/LAnion Gap14.7Euxdufz4911-790 mg/dLBlood Urea Nitrogen 34.07.0-18.0 mg/dLCreatinine1.940.55-1.02 mg/dLEstimated GFR ( Idzxtmc48 >=60 mL/min/1.73m 2Estimated GFR (Non- Ame25>=60 mL/min/1.73m 2BUN Creatinine Ratio17.7Lqjlthf2.88.5-10.1 mg/dLBilirubin Total0.60.2-1.0 mg/dL Aspartate Amino Tihrfgsksgh2073-86 U/LAlanine Razomdamumzrxnsv317-18 U/LAlkaline Qhfuffzthlu3876-447 U/LTotal Protein6.36.4-8.2 g/dLAlbumin Level2.43.4-5.0 g/dL Globulin3.9Albumin Globulin Ratio0.6Performing Lab:see noteML - [facility] LBTroponin I High Sensitivity Reviewed date:09/06/2024 05:50:32 PM Interpretation: Performing Lab: Notes/Report: [facility] ,Troponin I High Rejjuyxhxru18.24.0-51.3 pg/mL CUT-OFF POINTS HAVE BEEN ESTABLISHED BASED ON THE FOURTH UNIVERSAL DEFINITION OF MYOCARDIAL INFARCTION. THE UPPER REFERENCE LIMIT (URL) OF TROPONIN, DEFINED THE 99TH PERCENTILE OF cTnI DISTRIBUTION IN A REFERENCE POPULATION, HAS BEEN CONFIRMED THE DECISION THRESHOLD FOR UT DIAGNOSIS. 99TH PERCENTILE = 51.4 PG/ML NOTE: HIGH-SENSITIVITY TROPONIN ASSAY IS NOT INTENDED TO BE USED IN ISOLATION BUT SHOULD BE INTERPRETED IN CONJUNCTION WITH OTHER DIAGNOSTIC AND CLINICAL INFORMATION. Performing Lab:see noteML - [facility] LBUS venous doppler LE BI Reviewed date:09/06/2024 05:50:32 PM Interpretation: Performing Lab: Notes/Report: Source Facility: [facility]-[address] [place] [address] [place] [address] Ultrasound Report Signed Patient: OSCAR HORTA MR#: [id number] : 1940 Acct:[id number] Age/Sex: 83 / F ADM Date: 09/05/24 Loc: MS 214-[address]: Mateus Blake M.D. Ordering Physician: Mateus Blake M.D. Date of Service: 09/06/24 Procedure(s): US venous doppler LE BI Accession Number(s): [id number] cc: Mateus Blake M.D. [place] [address] Patient Name: OSCAR HORTA MRN: [id number] date: 1940 Sex: F Assigned Patient Location: MS Current Patient Location: MS Accession/Order Number: [id number] Exam Date: 09/06/2024 09:20 Report Date: 09/06/2024 [...] Signed By: 09/06/24 1003 DD/ 1000 TD/TT: Wallcovering Texturer:GLYCOHEMOGLOBIN A1C Reviewed date:09/23/2024 10:46:47 AM Interpretation: Performing Lab: Notes/Report: [facility] ,Glycohemoglobin A1C6.44.5-6.2 % ADA RECOMMENDED LIMIT 4.0 - 6.0 ADA THERAPEUTIC TARGET < 7.0 ACTION SUGGESTED > 7.0 Estimated Average Yrdgcfq444Hidpxrnije Lab:see noteML - [facility] LB XR lumbar spine 6V w bending Reviewed date:03/10/2025 09:07:23 PM Interpretation: Performing Lab: Notes/Report: Source Facility: [place] [address] [place] [address] XRay Report Signed Patient: OSCAR HORTA MR#: [id number] : 1940 Acct:[id number] Age/Sex: 84 / F ADM Date: 03/10/25 Loc: OSEI Attending Dr: Kassandra Thomas NP Ordering Physician: Kassandra Thomas NP Date of Service: 03/10/25 Procedure(s): XR lumbar spine 6V w bending Accession Number(s): [id number] cc: Kassandra Thomas NP; Mateus Blake M.D. [place] [address] Patient Name: OSCAR HORTA MRN: [id number] date: 1940 Sex: F Assigned Patient Location: [facility] Current Patient Location: [facility] Accession/Order Number: [id number] Exam Date: 03/10/2025 13:42 Report Date: 03/10/2025 [...] DISC DISEASE. Impression dictated by: Butch Quinones Jr. DMedardoOMedardo 03/10/2025 1:46 PM Dictation Location: [employer] Electronically authenticated by: [id number] Y Date: 03/10/2025 13:46 Dictated By: Butch Quinones M.D. Signed By: 03/10/25 1349 DD/ 1346 TD/TT: Wallcovering Texturer:CBC AUTO DIFF Reviewed date:03/19/2025 06:23:50 PM Interpretation: Performing Lab: Notes/Report: [facility] ,White Blood Count8.44.0-11.0 10 3/uLRed Blood Count3.184.20-5.40 10 6/uL Idhdjlgvws46.112.0-16.0 g/wXGpipvqqqxv98.436.0-48.0 %Mean Corpuscular Tqdram79.6 81.0-99.0 fLMean Corpuscular Ltcyzkedmg74.826.7-34.0 pgMean Corpuscular HGB Conc 33.229.9-35.2 g/dLRed Cell Distribution Width13.911.0-15.0 %Platelet Pxwec680 150-450 10 3/uLMean Platelet Volume9.69.5-13.5 fLNeutrophils Percent Auto56.8 43.0-75.0 %Lymphocytes Percent Auto22.720.5-60.0 %Monocytes Percent Auto15.71.7- 12.0 %Eosinophils Percent Auto3.40.9-7.0 %Basophils Percent Auto0.70.2-2.0 % Immature Granulocytes Pct Auto0.70.0-0.5 %Neutrophils Absolute Auto4.81.4-6.5 10 3/uLLymphocytes Absolute Auto1.91.2-3.8 10 3/uLMonocytes Absolute Auto1.30.3-0.8 10 3/uLEosinophils Absolute Auto0.30.0-0.7 10 3/uLBasophils Absolute Auto0.10.0- 0.1 10 3/uLImmature Granulocytes Abs Auto0.060.00-0.03 10 3/uLPerforming Lab:see noteML - [facility] LBPROF CHEM 8 (BAS METB) Reviewed date:03/19/2025 06:23:50 PM Interpretation: Performing Lab: Notes/Report: [facility] ,Hwilyu026886-774 mmol/LPotassium3.03.5-5.1 mmol/LUglojjye30751-511 mmol/LCarbon Fdchnvf25.821.0-32.0 mmol/LAnion Gap16.9Mndphbv28846-984 mg/dLBlood Urea Ocojzqce68.07.0-18.0 mg/dLCreatinine2.020.55-1.02 mg/dLEstimated GFR ( Lsjyfyc48>=60 mL/min/1.73m 2Estimated GFR (Non- Ame24>=60 mL/min/1.73m 2 BUN Creatinine Ratio14.1Jrwbolm2.38.5-10.1 mg/dLPerforming Lab:see noteML - [facility] LBUA RANDOM W or MICROSCOPIC Reviewed date:03/19/2025 06:23:50 PM Interpretation: Performing Lab: Notes/Report: SOURCE: [facility] ,Color UrineLT. YELLOWYELLOWClarity UrineCLEARCLEARSpecific [place] Urine1.010 1.005-1.025pH Urine6.05.0-9.0Protein UrineNEGATIVENEG/TRACE mg/dLGlucose Urine UANEGATIVENEGATIVE mg/dLBilirubin UrineNEGATIVENEGATIVEKetones UrineNEGATIVE NEGATIVE mg/dLBlood UrineNEGATIVENEGATIVENitrite UrineNEGATIVENEGATIVE Urobilinogen Urine0.20.2-1.0 EU/dLLeukocyte Esterase UrineNEGATIVENEGATIVEWBC Urine0-2NONE SEEN #/HPFRBC Urine0-20-2 #/HPFBacteria UrineTRACENONE SEEN #/HPF Mucus UrineNONE SEENNONE SEENSquamous Epithelial Cell UrineFEWNONE/RARE #/LPF Transitional Epi Cells UrineRARENONE SEEN #/LPFCrystals Seen?None SeenNone Seen #/HPFCast Seen?NONE SEENNONE SEEN #/LPFUrine Culture IndicatedNOPerforming Lab: see noteML - [facility] LBE coli Shiga Toxin EIA Reviewed date:03/23/2025 03:38:42 PM Interpretation: Performing Lab: Notes/Report: [facility] ,E coli Shiga Toxin EIASee Below For Report E coli Shiga Toxin EIA E coli Shiga Toxin EIANegative E coli Shiga Toxin EIA E coli Shiga Toxin EIAPerformed at: CB - [facility] [place] E coli Shiga Toxin EIA E coli Shiga Toxin [id number] [place], [place] [id number] E coli Shiga Toxin EIA E coli Shiga Toxin EIALab Director: Esteban Martinez PhD, Phone: [phone] E coli Shiga Toxin EIA Performing Lab:see note LC - [facility] LB SEE REPORT - Supervising Broker Id information not found for OBX-specific consumer affairs specialist legend Salmonella/Shigella Screen Reviewed date:03/25/2025 05:05:47 PM Interpretation: Performing Lab: Notes/Report: [facility] ,Salmonella/Shigella ScreenSee Below For Report Salmonella/Shigella Screen Salmonella/Shigella ScreenNo Salmonella or Shigella recovered. Salmonella/Shigella Screen Performing Lab:see noteLC - [facility] LBCT abdomen pelvis wo con Reviewed date:03/19/2025 06:23:50 PM Interpretation: Performing Lab: Notes/Report: Source Facility: [place] [address] CT Scan Report Signed Patient: OSCAR HORTA MR#: [id number] : 1940 Acct:[id number] Age/Sex: 84 / F ADM Date: 03/19/25 Loc: ER Attending Dr: Ordering Physician: Juliet German M.D. Date of Service: 03/19/25 Procedure(s): CT abdomen pelvis wo con Accession Number(s): [id number] cc: Mateus Blake M.D. [place] [address] Patient Name: OSCAR HORTA MRN: [id number] date: 1940 Sex: F Assigned Patient Location: ER Current Patient Location: ER Accession/Order Number: [id number] Exam Date: 03/19/2025 17:07 Report Date: 03/19/2025 [...] Nowak M.D. 03/19/2025 5:14 PM Dictation Location: [place] [address] Electronically authenticated by: [id number] Y Date: 03/19/2025 17:14 Dictated By: Duong Nowak M.D. Signed By: 03/19/25 1716 DD/ 1714 TD/TT: Wallcovering Texturer:E coli Shiga Toxin EIA Reviewed date:03/25/2025 05:05:47 PM Interpretation: Performing Lab: Notes/Report: JamiE coli Shiga Toxin EIASee Below For Report E coli Shiga Toxin EIA E coli Shiga Toxin EIANegative E coli Shiga Toxin EIA E coli Shiga Toxin EIAPerformed at: [facility] E coli Shiga Toxin EIA E coli Shiga Toxin [id number] [place], [place] [id number] E coli Shiga Toxin EIA E coli Shiga Toxin EIALab Director: Esteban Martinez PhD, Phone: [phone] E coli Shiga Toxin EIA Performing Lab:see note LC - [facility] LB SEE REPORT - Supervising Broker Id information not found for OBX-specific consumer affairs specialist legend HEMOGRAM AND PLATEL Reviewed date:03/21/2025 01:03:12 PM Interpretation: Performing Lab: Notes/Report: [facility] ,Hemoglobin7.912.0-16.0 g/qTTalpnkfrro53.436.0-48.0 %Performing Lab:see noteML - [facility] LBPROF 14(COMP METB) Reviewed date:03/21/2025 01:03:12 PM Interpretation: Performing Lab: Notes/Report: [facility] ,Flpgnr180716-855 mmol/LPotassium3.63.5-5.1 mmol/BVyzhxqem90314-029 mmol/LCarbon Yjiqhde37.821.0-32.0 mmol/LAnion Gap9.0Iysbtwm2652-916 mg/dLBlood Urea Nitrogen 21.07.0-18.0 mg/dLCreatinine1.490.55-1.02 mg/dLEstimated GFR ( Vzpsrbl58 >=60 mL/min/1.73m 2Estimated GFR (Non- Ame34>=60 mL/min/1.73m 2BUN Creatinine Ratio14.8Iqrxoyt0.28.5-10.1 mg/dLBilirubin Total0.30.2-1.0 mg/dL Aspartate Amino Mqnfcjlzvaw6514-70 U/LAlanine Oxtsyexicemwkymn5080-45 U/L Alkaline Iexkxpidylm43744-997 U/LTotal Protein5.66.4-8.2 g/dLAlbumin Level2.2 3.4-5.0 g/dLGlobulin3.4Albumin Globulin Ratio0.6Performing Lab:see noteML - [facility] LBCBC no Diff (Hemogram) Reviewed date:03/21/2025 01:03:12 PM Interpretation: Performing Lab: Notes/Report: [facility] ,White Blood Count7.24.0-11.0 10 3/uLRed Blood Count2.714.20-5.40 10 6/uL Hemoglobin8.412.0-16.0 g/xJVmnfbnqvxs53.936.0-48.0 %Mean Corpuscular Gtymlr36.3 81.0-99.0 fLMean Corpuscular Cbfajpjzaf84.026.7-34.0 pgMean Corpuscular HGB Conc 31.229.9-35.2 g/dLRed Cell Distribution Width14.411.0-15.0 %Platelet Vbfkq091 150-450 10 3/uLMean Platelet Yicpwf00.19.5-13.5 fLPerforming Lab:see noteML - [facility] LBXR hip RT 2V w/ pelvis Reviewed date:03/21/2025 01:03:12 PM Interpretation: Performing Lab: Notes/Report: Source Facility: [facility]-[address] [place] [address] [place] [address] XRay Report Signed Patient: OSCAR HORTA MR#: [id number] : 1940 Acct:[id number] Age/Sex: 84 / F ADM Date: 03/19/25 Loc: MS 217-[address]: Marly Arredondo M.D. Ordering Physician: Marly Arredondo M.D. Date of Service: 03/21/25 Procedure(s): XR hip RT 2V w/ pelvis Accession Number(s): [id number] cc: Mateus Blake M.D.; Marly Arredondo M.D. [place] [address] Patient Name: OSCAR HORTA MRN: [id number] date: 1940 Sex: F Assigned Patient Location: MS Current Patient Location: MS Accession/Order Number: [id number] Exam Date: 03/21/2025 10:13 Report Date: 03/21/2025 [...] Hernandez M.D. 03/21/2025 10:15 AM Dictation Location: [place] [address] Electronically authenticated by: [id number] Y Date: 03/21/2025 10:15 Dictated By: Coco Hernandez M.D. Signed By: 03/21/25 1018 DD/ 1015 TD/TT: Wallcovering Texturer:MAGNESIUM Reviewed date:03/23/2025 03:38:42 PM Interpretation: Performing Lab: Notes/Report: [facility] ,Magnesium1.81.8-2.4 mg/dLPerforming Lab:see noteML - [facility] LB Reason For Referral Reason Patient currently at the [facility] please call [phone] ask for 200 beck nurse Diagnosis 1 Anemia, iron deficie ncy (D50.9) Referral Organization [facility] Referring Provider First Name Rony Referring Provider Last Name modesta Referring Provider [facility] Referred Provider Specialty Gastroentero logy Referral Priority Routine Diagnosis 1 Hip pain, unspecifie d laterality (M25.559) Diagnosis 2 Knee pain, unspecifi ed laterality (M25.569) Referral Organization [facility] Referring Provider First Name Rony Referring Provider Last Name Hayden Referring Provider [facility] Referred Provider Mor Cutler Referred Provider [...] capsule Orally twice a day02/08/2024ctiveFreeStyle Sami 2 [place] -Use reader multiple times daily to check [...] MCG/ACT2 puff as needed Inhalation every 4 oxyAJC8909/14/2023ctivePantoprazole Sodium 40 MGTAKE 1 TABLET BY MOUTH [...] units; over 400 15 units and CALL [id number] Ketoconazole 2 %1 application Externally Twice a day; Duration: 24JTM5902/08/2024 ActivepredniSONE 5 MG2 tablet with food or milk Orally Once a day; Duration: 30 days5ActiveLeflunomide 20 MG1 tablet Orally Once a day5Active Hyoscyamine Sulfate 0.125 MG1-2 tabs SL SL every 4 hrs PRN abd pain03/19/2025 ActiveIsosorbide Mononitrate ER 60 MGTAKE 1 TABLET BY MOUTH EVERY DAY; Duration: 90Active Immunizations Vaccine Route Administration Date Status Comme nts Flu, Fluad (13591) 65 yrs and older, single-dose syringe (0237-3589) IM Intramuscular 06/25/2024 Administered Social History Tobacco [...] alcohol in the p ast year? No Hqopkp2RawxmekiafghiuWhntkgejJNFFV-W (Standard) Question Answer Notes Did you have a drink containing alcohol in the p ast year? 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) ActiveconfirmedProblemAcute on chronic diastolic heart failure (259882201)Acute on chronic diastolic (congestive) heart failure (I50.33)ActiveconfirmedProblem Acute exacerbation of chronic obstructive airways disease (372757576)Chronic obstructive pulmonary disease with (acute) exacerbation (J44.1)Activeconfirmed ProblemPrimary gout (01551935)Idiopathic gout, multiple sites (M10.09)Active confirmedProblemOsteoarthritis (476325355)Unspecified osteoarthritis, unspecified site (M19.90)ActiveconfirmedProblemDegeneration of cervical intervertebral disc (20860724)Other cervical disc degeneration, cervicothoracic region (M50.33)ActiveconfirmedProblemChronic kidney disease stage 2 (072048170) Chronic kidney disease, stage 2 (mild) (N18.2)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, 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)ActiveconfirmedProblem Abnormal gait (76128985)Other abnormalities of gait and mobility (R26.89)Active confirmedProblemWeakness (91865996)Weakness (R53.1)ActiveconfirmedProblemHigh grade squamous intraepithelial lesion on anal Papanicolaou smear (415508059178164)High grade squamous intraepithelial lesion on cytologic smear of anus (HGSIL) (R85.613)ActiveconfirmedProblemMorbid obesity (822847732)Morbid obesity (E66.01)ActiveconfirmedProblemHypertension (82585304)Hypertension (I10) ActiveconfirmedProblemChronic obstructive pulmonary disease (63575845)Chronic obstructive pulmonary disease (COPD) (J44.9)ActiveconfirmedProblem Gastroesophageal reflux disease (198150785)GERD (gastroesophageal reflux disease) (K21.9)ActiveconfirmedProblemChronic kidney disease (662080054)Chronic kidney disease (N18.9)ActiveconfirmedProblemCoronary artery disease (42246855) CAD (coronary artery disease) (I25.10)ActiveconfirmedProblemHypertension (24350938)HTN (hypertension) (I10)ActiveconfirmedProblemTachycardia (5449687) Tachycardia (R00.0)ActiveconfirmedProblemHypothyroid (78973025)Hypothyroid (E03.9)ActiveconfirmedProblemOsteopenia (916751694)Osteopenia (M85.80)Active confirmedProblemChronic kidney disease stage 2 (741984422)Chronic kidney disease (CKD) stage G2/A1, mildly decreased glomerular filtration rate (GFR) oflluks89- 89 mL/min/1.73 square meter and albuminuria creatinine ratio less than 30 mg/g (N18.2)ActiveconfirmedProblemHip pain (63682905)Hip pain (M25.559)Active confirmedProblemUrinary incontinence (688664417)Urinary incontinence (R32)Active confirmedProblemParoxysmal atrial fibrillation (502710218)Paroxysmal atrial fibrillation (I48.0)ActiveconfirmedProblemAtrial fibrillation (82315789)Atrial fibrillation (I48.91)ActiveconfirmedProblemAcute combined systolic and diastolic heart failure (782558612845105)Acute combined systolic (congestive) and diastolic (congestive) heart failure (I50.41)ActiveconfirmedProblemType 2 diabetes mellitus (54314949)Type 2 diabetes mellitus (E11.9)Activeconfirmed ProblemBack pain (282911638)Back pain (M54.9)ActiveconfirmedProblemRheumatoid arthritis (27354998)RA (rheumatoid arthritis) (M06.9)ActiveconfirmedProblem Lumbar radiculopathy (256879430)Lumbar radiculopathy (M54.16)Activeconfirmed ProblemBronchitis (01934871)Bronchitis (J40)ActiveconfirmedProblem Hypertriglyceridemia (584271375)Hypertriglyceridemia (E78.1)Activeconfirmed ProblemEdema (955356351)Edema leg (R60.0)ActiveconfirmedProblemRectal bleeding (84875062)Rectal bleeding (K62.5)ActiveconfirmedProblemAcquired hypothyroidism (635647194)Acquired hypothyroidism (E03.9)ActiveconfirmedProblemIron deficiency anemia (29034437)Iron deficiency anemia (D50.9)ActiveconfirmedProblem Inflammation of bursa of olecranon (947703692)Olecranon bursitis of left elbow (M70.22)ActiveconfirmedProblemChronic diastolic heart failure (172691763)Chronic diastolic heart failure (I50.32)ActiveconfirmedProblemIron deficiency anemia (00059807)Anemia, iron deficiency (D50.9)ActiveconfirmedProblemGastrointestinal hemorrhage (22567885)GI bleed (K92.2)ActiveconfirmedProblemDiverticular disease of colon (981358651)Colon, diverticulosis (K57.30)ActiveconfirmedProblemRight lower lobe pneumonia (018145269)Right lower lobe pneumonia (J18.9)Active confirmedProblemAsthma without status asthmaticus (94333950)AB (asthmatic bronchitis) (J45.909)ActiveconfirmedProblemChronic congestive heart failure (83062665)Chronic CHF (I50.9)ActiveconfirmedProblemPeripheral vascular disease (577747265)Other peripheral vascular disease (I73.89)ActiveconfirmedProblem Anemia of renal disease (330246606)Anemia of renal disease (D63.1)Active confirmedProblemArteriosclerosis of artery of extremity (disorder) (471155750) 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89)ActiveconfirmedProblemDiabetes mellitus type II (12372078)DM (diabetes mellitus), type 2 (E11.9)ActiveconfirmedProblemRheumatoid arthritis (31297950)Rheumatoid arthritis flare (M06.9)ActiveconfirmedProblem Peripheral vertigo (32860914)Vertigo, peripheral (H81.399)ActiveconfirmedProblem Pure hypercholesterolemia (316114037)Pure hypercholesterolemia, unspecified (E78.00)ActiveconfirmedProblemMalignant neoplasm of female breast (425051752) Invasive ductal carcinoma of breast, 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)ActiveconfirmedProblemType II diabetes mellitus without complication (316078294)Controlled type 2 diabetes mellitus (E11.9)ActiveconfirmedProblemHuman papillomavirus (8184564)Human papillomavirus (A63.0)ActiveconfirmedProblemAcquired thrombocytopenia (23769103) Acquired thrombocytopenia (D69.6)ActiveconfirmedProblemMalnutrition of moderate degree (Carmen: 60% to less than 75% of standard weight) (31414108)Moderate protein malnutrition (E44.0)ActiveconfirmedProblemBruising (563372467)Bruising (T14.8XXA)ActiveconfirmedProblemType II diabetes mellitus without complication (691398928)Diabetes (E11.9)ActiveconfirmedProblemDiabetes mellitus (53441019) Diabetes mellitus (E11.9)ActiveconfirmedProblemChronic kidney disease stage 4 (683584334)Acute worsening of stage 4 chronic kidney disease (N18.4)Active confirmed Vital Signs Temperature 97.6 degrees Fahrenheit 10/14/2024 Pmxvymsp82 %10/14/2024lood pressure krgtsuoiz04 mm Hg07/04/20259005Cehfoi99 in 07/04/2025lood pressure xkuvkwla459 mm Hg07/04/20258283Xjtbcz015 lbs1MI 25.32 kg/m207/04/2025 Procedures Procedure Date Ordered Date Performed Result Body Sit e EAR IRRIGATION - performed 03/07/2025 N/AEAR IRRIGATION - ogzackqjq56/09/2025N/A Encounters Encounter Location Date Provider Diagnosis [address] [address] 11/05/2024 Rony Hoy Acute bronchitis, unspecified organism J20.9 and Right lower lobe pneumonia J18.[address] [address] 09/12/2024 Rony Hoy CAD (coronary artery disease) I25.10 and Paroxysmal atrial fibrillation I48.[address] [address] 09/19/2024 Rony Hoy Hypertension I10 ; Hypothyroidism E03.9 ; CAD (coronary artery disease) I25.10 ; Gastro-esophageal reflux disease K21.9 ; Pure hypercholesterolemia, unspecified E78.00 and Hypothyroid E03.[address] [address] 09/27/2024 Rony Hoy Bruising T14.8XXA [address] [address] 10/14/2024 Rony Hoy Foul smelling urine R82.90 ; Acute bronchitis, unspecified organism J20.9 and Cough R05.[address] [address] 12/18/2024 Rony Hoy Hypertension I10 ; C AD (coronary artery disease) I25.10 ; Diabetes mellitus E11.9 ; Chronic obstructive pulmonary disease (COPD) J44.9 and Acquired hypothyroidism E03.[address] [address] 03/07/2025 Rony Hoy UTI (urinary tract infection) N39.0 and Bilateral impacted cerumen H61.[address] [address] 03/19/2025 Rony Hoy Gastroenteritis K52. 9 and Bilateral impacted cerumen H61.[address] [address] 07/04/2025 Rony Hoy Back pain M54.9 [facility] [address] [place] [address] 08/01/2025 Rony Hoy [facility] [place] [address] 09/06/2024oug [facility] [place] [address]/Doug [facility] [place] [address]/Doug [facility] [place] [address]/Doug [facility] [place] [address]/10/2024Doug [facility] [place] [address]/01/2025 Rony HoyHypertension T79ScnthtxMiddle [facility] [place] [place] [address]/11/2024Doug HoyHypertension [address] [place] [address]/05/2025Doug [facility] [place] [address]/06/2025 Rony [facility] [place] [address]/Doug [facility] [place] [address]/Doug HoyAnemia, iron deficiency D50.9 and GI bleed K92.2B[facility] [place] [address]/Doug [facility] [place] [address]/Doug [facility] [facility] [place] [address]/Doug [facility] [facility] [place] [address]/10/2024Doug [facility] [facility] [place] [address]/11/2024 Rony HoyGastroenteritis K52.9BV[facility] [facility] [place] [address]/Doug [facility] [facility] [place] [address]/Doug HoyHip pain, unspecified laterality M25.559 and Knee [...] vaporizer to help keep the drainage moist. Gfra-egz-cbovxnb Nasal Saline may help the stuffy and runny nose. Use Ibuprofen and or Tylenol as needed for fever, chills, body aches or pain. Children 5 years old should not be given lhxn-tab-jhfbxyf cough and cold medications such as guaifenesin and dextromethorphan. If you're over age 5, you may try gbwg-cse-zkozyfl cold medications such as guaifenesin and dextromethorphan, [...] go to the emergency room or call [phone] (ICD-10 - I10)diastolic low - no change in meds09/19/2024Hypothyroidism (ICD-10 - E03.9)on meds - checking on labs11/05/2024ute bronchitis, unspecified organism (ICD-10 - J20.9)Rest and drink more liquids, especially water. You may use a humidifier or vaporizer to help keep the drainage moist. Bavj-laj-bbccglg Nasal Saline may help the stuffy and runny nose. Use Ibuprofen and or Tylenol as needed for fever, chills, body aches or pain. Children 5 years old should not be given ertg-bow-rgwocrw cough and cold medications such as guaifenesin and dextromethorphan. If you're over age 5, you may try vpik-jun-kblvzuu cold medications such as guaifenesin and dextromethorphan, [...] go to the emergency room or call Right lower lobe pneumonia (ICD-10 - J18.9)egophony on exam 03/19/2025Gastroenteritis (ICD-10 - K52.9)Get plenty of rest. Stay hydrated by sucking on ice chips or taking small sips of water. You can also try drinking clear soda, clear broths or noncaffeinated sports drinks. Stop eating solid foods for a few hours to let your stomach settle. East back into eating by eating bland, kyxc-xk-dnppeo foods like crackers, toast, gelatin, bananas, rice and chicken. Try to avoid foods/substances including dairy products, caffeine, alcohol, nicotine and fatty or highly seasoned foods. Medications such as i buprofen or tylenol can make your stomach more upset, so use sparingly if at all. Also avoid ecqq-hdv-hxvwclx anti-diarrheal medications because it can make it [...] hypercholesterolemia, unspecified (ICD-10 - E78.00)on meds - dpxoer905Acquired hypothyroidism (ICD-10 - E03.9)09/19/2024Hypothyroid (ICD-10 - E03.9)07/04/2025OtherRecommended to rest and use a heating pad on the area. Take NSAIDs for pain as needed Plan Of Treatment Pending Test Test Name Order Date CMP (COMPLETE METABOLIC PANEL) UA (URINALYSIS, COMPLETE) 05/09/2023 CULTURE, STOOL 03/19/2025 [...] End Date [place] [address] [place] [address] [id number] Elidia Hortaelf - patient is the kyqbdwv28 [address] [id number] [place] [address] [id number], BertieSelf - patient is the oaqnyqd30 2007 Medications Administered Medication Instructions Date of Administration Dosage Notes Kenalog-40 480 xp62Uhypepafw Mckooesilnql89/30/806655 mg Medical (General) History Medical History History [...] Chronic diastolic heart failure I50.32 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
--- OUTSIDE RECORDS SUMMARY | 2025-08-04 09:50 | XMS_ITS | Clinical Summary ---
Author Organization [facility] Address [address] [place] [address] Care Team Providers Care Eyeglass Lens Generator Name Role Phone Unavailable Primary Care Provider Unavailabl e Source Comments The following information is NOT included in Care Everywhere downloads:Psychiatric notes, ECG results, Cardiac Rehab notes, Pulmonary Function notes, data from SmartForms (includes but not limited toPregnancy data,audiograms, eye exams, pre-surgical evaluation notes, well-child exam data).[facility] Social History Tobacco UseTypesPacks/DayYears UsedDateSmoking Tobacco: Never Assessed CommentsUnknownSex and Gender InformationValueDate RecordedSex Assigned at Not on fileLegal NuuXjixsh60/18/2025 4:12 PM EDTGender IdentityNot on fileSexual OrientationNot on file Plan of Treatment Health MaintenanceDue DateLast DoneCommentsTdap Bpnohkx1510/06/1960Hepatitis A (HAV) Vaccine (optional start 19+ years)1961Tetanus (Td or Tdap) Booster 2Pneumococcal Vaccine(s) (50+ yrs) (1 of 1 - PCV)1992Shingles (RZV) Vaccine (1 of 2)1992Hepatitis B (HBV) Vaccine (optional start 60+ years)2002Bone Geqiamkhtvvw50/26/2008RSV vaccine (adult) (1 - 1-dose 75+ series)2017COVID-19 Vaccine (1 - 2024- season)2025Influenza Vaccine (#1)2025Pap SmearDiscontinued
--- OUTSIDE RECORDS SUMMARY | 2025-08-04 09:50 | XMS_ITS | Clinical Summary ---
Author Organization [facility] Address [address], [address] [place] [address] Care Team Providers Care Housekeeping Coordinator Name Role Phone Gil Blake MD Primary Care Provider [phone] Allergies Active AllergyReactionsCriticalityNoted DateCommentsCefdinirNausea And Vomiting Low3CiprofloxacinHives,Other (See Comments)High09/29/2017 tendon issues KrjmnflvhHcyhTpy51/15/2019 Rash & GI upset TramadolDiarrhea,Nausea And ZhguviniEgzoto04/01/2023 Medications MedicationSigDispense QuantityRefillsLast FilledStart DateEnd DateStatus amLODIPine [...] 1 tablet by mouth daily11/09/2022ctive nystatin (MYCOSTATIN) 722726 UNIT/GM cream Apply topically 2 times daily. 1 each ctive Additional Information Patient taking differently: DAILY PRN, Skin folds, Reported on 03/03/2023 vitamin D3 (CHOLECALCIFEROL) 125 MCG (5000 UT) TABS tablet Take 1 tablet by mouth daily11/29/2022ctive albuterol (PROVENTIL) (2.5 MG/3ML) 0.083% nebulizer solution Take 3 mLs by nebulization every 6 hours as needed for WheezingActive [place]-3 Fatty Acids (FISH OIL OMEGA-3 PO) Take [...] cancerSister Social History Tobacco UseTypesPacks/DayYears UsedDateSmoking Tobacco: [id number] - 2018Passive Smoke Exposure: PastSmokeless Tobacco: Never [...] with harm?Not on file 03/03/2023Read-Only, Retired: Physical XwdobUcfyaa39/23/2023Read-Only, Retired: Verbal HgksrPbxiyu09/23/2023Read-Only, Retired: Emotional ytuinWmoeac67/23/2023 Read-Only, Retired: Financial QwzebZmgrfz24/23/2023Read-Only, Retired: Sexual oouxjVwaqkz28/23/2023CommentsNoSex and Gender InformationValueDate RecordedSex Assigned at BirthNot on fileLegal SajZfycxl16/10/2013 7:39 PM EST Gender IdentityNot on fileSexual OrientationNot on file Last Filed Vital Signs Vital SignReadingTime TakenCommentsBlood Agprdrkj955/6511 1:23 PM EDT Ziybj641307/12/2023 1:23 PM WTBHgcmszvdyqc06.4 ??C (97.6 ??F)07/12/2023 1:23 PM EDTRespiratory Mloj736203/06/2023 8:30 AM EDTOxygen Zgsmnmkufc97%07/12/2023 1:23 PM EDTInhaled Oxygen Concentration--Bjbrmz88.4 kg (181 lb 9.6 oz)07/12/2023 1:23 PM OTDHgxbdo656.9 cm (5' 0.98 )07/12/2023 1:23 PM EDTBody Mass Index34.33 07/12/2023 1:23 PM EDT Plan of Treatment Health MaintenanceDue DateLast IlwzEcihoqanYvsrym18/26/1951Depression Screen 1954DTaP/Tdap/Td vaccine (1 - Tdap)2Pneumococcal 50+ [...] 11:07 AM * Full Code Date ActivatedDate SpkbdczdmfpTmrffzau00/18/2022 6:57 AM06/28/2022 2:17 PM Care Teams Team MemberRelationshipSpecialtyStart DateEnd Date Gil Blake MD [address] [place] [address] PCP - GeneralFamily Medicine03/04/21
--- OUTSIDE RECORDS SUMMARY | 2025-08-04 09:50 | XMS_ITS | Clinical Summary ---
Author Organization [facility] Address [address] [place] [address] Care Team Providers Care Physical Therapy Resident Name Role Phone Gil Blake MD Primary [...] BY MOUTH IN THE MORNING AND AT UAWNVLP4604/08/2024ctive febuxostat (Uloric) 40 MG tablet Take 40 [...] Problems No known active problems Encounters DateTypeDepartmentCare UbtmXjmyvhgdgic33/23/2025 1:50 PM EDTOffice Visit [facility] [address] [facility] [address] [place] [address] Peyman Roper DPM Neoplasm of uncertain behavior of skin (Primary Dx); Diabetes mellitus due to underlying condition with diabetic polyneuropathy, 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 jail insulin use (HCC); Pain due to onychomycosis of toenails of both feet; Venous insufficiency; Acquired deformity of left toe07/03/2025amboo flowsheet [facility] [address] [facility] [address] [place] [phone] Peyman Roper DPM 07/03/2025Travelfrom Last 3 Months Family History Medical HistoryRelationNameCommentsArthritisMotherCancerMotherDiabetesMother Heart diseaseMotherHypertensionMotherRelationNameStatusCommentsFatherDeceased MotherDeceased Social History Tobacco UseTypesPacks/DayYears UsedDateSmoking Tobacco: FormerCigarettes Smokeless Tobacco: Never Tobacco Cessation:Counseling Given: Yes Alcohol UseStandard Drinks/WeekCommentsNever0 (1 standard drink = 0.6 oz pure alcohol)CommentsUnknownSex and Gender InformationValueDate RecordedSex Assigned at BirthNot on fileLegal IixObacrv69/15/2023 7:38 PM EDTGender Identity Not on fileSexual OrientationNot on file Last Filed Vital Signs Vital SignReadingTime TakenCommentsBlood Pressure--Pulse--Temperature-- Respiratory Ytxa2060 1:58 PM EDTOxygen Saturation--Inhaled Oxygen Concentration--Ujvgrb49.8 kg (145 lb)07/03/2025 1:58 PM NYOHiujoy340.4 cm (5') 07/03/2025 1:58 PM EDTBody Mass Index28.321 1:58 PM EDT Plan of Treatment DateTypeDepartmentCare Team (Latest Contact Info)Kreuqwqkgnv62/22/2026 1:50 PM ESTOffice Visit [facility] [address] [facility] [address] [place] [phone] Peyman Roper DPM [address] [facility] [address] [place] [address] Health MaintenanceDue DateLast DoneCommentsPneumococcal Vaccine: 65+ Years (2 of 2 - PCV), 06/15/2010COVID-19 Vaccine ( - 2024- season) , 11/06/2020, 10/09/2020Influenza Vaccine (#1)2025 06/25/2024, 07/01/2021, 06/10/2020, Additional history exists Insurance Care Teams Team MemberRelationshipSpecialtyStart DateEnd Gil Blake MD [address] [facility] [place] [address] PCP - GeneralFamily Medicine02/14/24
--- OUTSIDE RECORDS SUMMARY | 2025-08-04 09:50 | XMS_ITS | Clinical Summary ---
Author Organization [facility] Address [address] [place] [address] Care Team Providers Care Television Engineering Teacher Name Role Phone Gil Blake MD Primary Care Provider [phone] Allergies Active AllergyReactionsCriticalityNoted AgxtFfwmxvluSrpxktgrRdeez55/03/2023 CiprofloxacinHives,MjckeZhcq66/19/2018 Other reaction(s): Other: See Comments tendon issues tendon issues DcskgbhieNofxSdh38/15/2019 Rash & GI upset Oxycodone-QeeeviwjnkoehDgmxfDuh28/21/2013 GI upset & rash MkaomplpSamfn91/30/2024 Medications MedicationSigDispense QuantityRefillsLast FilledStart DateEnd DateStatus albuterol 2.5 mg /3 mL (0.083 %) nebulizer solution USE 1 VIAL IN NEBULIZER 4 TIMES DAILY ALGIWR6203/26/2022ctive aspirin 81 mg EC tablet Take 81 mg by mouth.Active fish oil concentrate (Compton-3) 120-180 mg capsule Take 1,000 mg by mouth.Active furosemide (Lasix) 40 mg tablet Take 40 mg by mouth in the morning.07/16/2022ctive glimepiride (Amaryl) 4 mg tablet Take 4 mg by mouth in the morning and at bedtime.07/16/2022ctive hydrALAZINE (Apresoline) 100 mg tablet Take 100 mg by mouth if needed in the morning, at noon, and at bedtime. For SBP >44746/ctive isosorbide mononitrate ER (Imdur) 60 mg 24 [...] 90 tablet 5Active Active Problems ProblemNoted DateDiagnosed PzzxTqcxwmijg68/06/2024rimary cthruhbzeujq74/06/2024 LBBB (left bundle branch block)07/17/2024aroxysmal atrial fibrillation 07/17/2024Longstanding persistent atrial fijbwgkbwoss83/22/2024cute combined systolic and diastolic heart zauvfns1907/02/2024ltered mental vdsuon4206/12/2024 Edema of both lower legs06/12/2024Leg ulcer, left06/12/2024Leg wound, right 06/12/2024Open wound of left thigh06/12/2024Uses gcwezv8106/12/2024Varicose veins of both legs with edema06/12/2024Stage 3a chronic kidney ogqqyvq3902/14/2023M type 2 (diabetes mellitus, type 2)09/13/2022Vaginal azmvwxmtl00/03/2023Vaginal intraepithelial neoplasia III (VAIN III)09/13/2022Vulvar intraepithelial neoplasia (VIVEK) grade 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 She has returned home from [facility] facility and presents today with granddaughter who [...] prevent rehospitalization forheart failure exacerbation Brain stem gaqebpk1609/13/2022reast cancer of upper-outer quadrant of right female syefpl2509/13/2022ervical disc kvlnwox9409/13/2022hronic anticoagulation 09/13/2022hronic low back pain09/13/2022hronic obstructive pulmonary disease 09/13/20224598Kejhtgjbpzdwzl43/03/0616Avrvc71/03/2023Invasive ductal carcinoma of right tezsft4109/13/20220593Gnlaxemdcr17/03/2023seudoaneurysm of femoral artery 3Pure qlldjnzwxkxggvvahfzd37/03/2023Rectal pihjhczk88/03/2023Stage 2 chronic kidney pbtqxvn1209/13/2022ostoperative state2Chronic diastolic heart ftfwutb6804/19/20221752Nkwtjhc86/08/2022HGSIL Pap smear of xiooac2804/13/2021VAIN II (vaginal intraepithelial neoplasia grade II)10/13/2017 Overview (09/13/2022): Added automatically from request for surgery [id number] Atherosclerosis of [place] coronary artery of [place] heart without angina gisbrrvo39/08/2017 Assessment & Plan (05/27/2024 12:48 PM EDT): [...] exercise as tolerated and continue all medications. Uupmzmkxdrzc42/08/2017 Assessment & Plan (05/27/2024 12:56 PM EDT): As above S/P coronary artery stent bkfrvcuym62/08/2017 Assessment & Plan (05/27/2024 12:57 PM EDT): Remains on ASA No c/o angina or concerns Moderate smoker (20 or less per day)01/16/2017Angina ijuwecrb40/12/2012 Gastroesophageal reflux mlojous4712/22/20117455Epbxbebaefwnvl23/12/2012 Assessment & Plan (05/27/2024 12:54 PM EDT): Lipid abnormalities are elevated therefore will increase zocor to 40 mg daily. Will repeat lipid level and liver function in 2-3 months Pgrxjdmmxaesvi28/12/2012enign hypertensive cardiomyopathy with heart failure 12/22/2011 Assessment & Plan (05/27/2024 12:49 PM EDT): Hypertension currently is well-controlled at 106/67 Continue amlodipine, hydralazine, Imdur, Toprol and spironolactone Currently renal function normal, no acute concerns. Tobacco user12/22/2011 Resolved Problems ProblemNoted DateDiagnosed DateResolved DateBMI 36.0-36.9,adult09/13/2022 07/17/2024aroxysmal atrial udrcsgctnpjm09 Assessment & Plan (05/27/2024 12:56 PM EDT): UXN0EG8-QBZs= 6-7 at least with Age, Sex, CHF, CAD/Vascular disease, HTN, DM Currently per assessment she appears to be in rhythm heart rate well-controlled with metoprolol 200mg daily and she remains on Eliquis anticoagulation without any bleeding tendencies or concerns. Encounters DateTypeDepartmentCare FqaoQhlaonwhxna25/03/2025 7:30 AM ESTAncillary Procedure [facility] [address] [place] [phone] Pre-operative cardiovascular examination, ICD in place07/10/2025Orders Only [facility] [address] [place] [phone] Marisol Khoury MD 06/12/2025 1:00 PM EDTAncillary Procedure [facility] [address] [place] [phone] Pre-operative cardiovascular examination, ICD in place06/12/2025Orders Only [facility] [address] [place] [phone] Brian Potter MD 06/12/2025Orders Only [facility] [address] [place] [phone] Brian Potter MD 06/11/2025 12:35 PM EDTAncillary Procedure [facility] [address] [place] [phone] Pre-operative cardiovascular examination, ICD in place06/01/2025Refill [facility] [address] [place] [address] Zhane, Lorenza, PARKING ENFORCEMENT SPECIALIST Dyslipidemiafrom Last 3 Months Family History Medical [...] part ner or ex-partner?No09/12/2024PHQ-2AnswerDate RecordedPatient Health Questionnaire-2 Neeff543UT Safety & EnvironmentAnswerDate RecordedFear of Current or [...] were you homeless or living in a [place] (including now)?No09/12/2024 Hunger Vital SignAnswerDate RecordedWithin the past 12 months, you worried that your food would run out before you got the money to buymore.Never true09/12/2024 Within the past 12 months, the food you bought just didn't last and you didn't have money to get more.Never true09/12/2024CommentsNoSex and Gender InformationValueDate RecordedSex Assigned at XvwofMcsces82/08/2025 9:20 PM EDT Legal CwyMahfze72/29/2022 10:03 PM EDTGender YrsqrjluUompvt22/21/2025 12:40 PM ESTSexual OrientationChoose not to tgkioznp00/08/2025 9:20 PM EDT Last Filed Vital Signs Vital SignReadingTime TakenCommentsBlood Fpqtuibq336/67001/21/2025 1:10 PM EDT Fbcch0744 1:10 PM EDTTemperature--Respiratory Nbnj554509/12/2024 2:18 PM ESTOxygen Phaxqwbvnd50%01/21/2025 1:10 PM EDTInhaled Oxygen Concentration-- Imueml83.1 kg (137 lb)01/21/2025 1:10 PM TMZDejhhf356.4 cm (5')01/21/2025 1:10 PM EDTBody Mass Index26.76001/21/2025 1:10 PM EDT Plan of Treatment DateTypeDepartmentCare Team (Latest Contact Info)Zmqanpaxcws28/25/2025 1:15 PM ESTOffice Visit [facility] [place] [address] [place] [address] Brian Potter MD [address] [place] [address] Health MaintenanceDue DateLast DoneCommentsDiabetes: Hemoglobin A1C1942 Medicare Annual Wellness (AWV)3Diabetes: Retinopathy Screening 3Diabetes: Urine Protein Czujlrhyj66/26/1962neumococcal Vaccine: 50+ Years (1 of 2 - PCV)2Adult Rtidlgf9010/06/1964Zoster Vaccines (1 of 2) 1992COVID-19 Vaccine (4 - season)/06/2021, 11/06/2020, 10/09/2020Influenza Vaccine (#1)/, 07/01/2021, 06/10/2020, Additional history existsDepression Ljypzligh06/10/2024Fall Risk Kfbzuvcpe34/10/2024HIB VaccinesAged OutNo longer eligible based on patient's [...] Expiration DateModel / Serial / LotVigilant X4 Human Service Technician-D Is-1/Df4/Is4 Implanted:Qty: 1 on 07/10/2024 by [facility] ICDLeft: Fabian [id number] / [id number] / [place] 4-Front S Active Fix Single Coil 59cm Implanted:Qty: 1 on 07/10/2024 by Brian Potter MD at [facility] [id number] / [id number] / Lead,Acuity X4,Franci L - [id number] - [id number] Implanted:Qty: 1 on 07/10/2024 by Brian [facility] CenterLeadLeft: Fuller [id number] / [id number] / Procedures Procedure NamePriorityDate/TimeAssociated DiagnosisCommentsCARDIAC DEVICE CHECK CHECK - ZJYXGUForolyh17/03/2025 1:09 PM EST Pre-operative cardiovascular examination, ICD in place CARDIAC DEVICE CHECK - REMOTE - HZJVkhjxmz56/30/2025 12:00 AM EDTCARDIAC DEVICE CHECK CHECK - PRZLTUNtbmznk71/08/2025 12:43 PM EDT Pre-operative cardiovascular examination, ICD in place CARDIAC DEVICE CHECK CHECK - DFFVEZEngeolx92/08/2025 12:42 PM EDT Pre-operative cardiovascular examination, ICD in place CARDIAC DEVICE CHECK - REMOTE ALERT - BIQKbxqsxp03/02/2025 12:00 AM EDTCARDIAC DEVICE CHECK - REMOTE ALERT - SBTSdddgzj40/02/2025 12:00 AM EDTfrom Last 3 Months Results * CARDIAC DEVICE CHECK - REMOTE - ICD (07/14/2025 1:09 PM EST) Only the most recent of3 resultswithin the time period is included. Specimen (Source)Anatomical Location / LateralityCollection Method / Volume Collection TimeReceived Time Narrative Authorizing ProviderResult TypeResult StatusBrian Potter [facility] IMPLANTABLE CARDIAC DEVICE PROCEDURESFinal ResultPerforming OrganizationAddressCity/State/ZIP Code Phone Number CPACS * Cardiac device check - Remote ICD (07/10/2025 12:00 AM EDT)Anatomical Region LateralityModalityOtherSpecimen (Source)Anatomical Location / Laterality Collection Method / VolumeCollection TimeReceived Time07/10/2025 Narrative Authorizing ProviderResult TypeResult StatusMarisol Khoury [facility] IMPLANTABLE CARDIAC DEVICE PROCEDURESFinal Result * Cardiac device check - Remote alert ICD (06/12/2025 12:00 AM EDT) Only the most recent of2 resultswithin the time period is included. Anatomical RegionLateralityModalityOtherSpecimen (Source)Anatomical Location / LateralityCollection Method / VolumeCollection TimeReceived Time06/12/2025 Narrative Authorizing ProviderResult TypeResult StatusPanilton Potter MDCV IMPLANTABLE CARDIAC DEVICE PROCEDURESFinal Result from Last 3 Months Insurance * Guarantor: Harman Horta TypeRelation to PatientDate of BirthPhone Billing AddressPersonal/QepeotZmgj20/26/1941 [facility] [phone] [place] [address] Care Teams Team MemberRelationshipSpecialtyStart DateEnd Gil Blake MD [address] [facility] [address] [address] PCP - General09/16/22
--- OUTSIDE RECORDS SUMMARY | 2025-08-04 09:50 | XMS_ITS ---
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 Name Role Phone Gil Blake MD Primary Care Provider [phone] Active Problems ProblemNoted DateDiagnosed StpgMijdzjjex60/06/2024Primary xipcdyydogpk94/06/2024 LBBB (left bundle branch block)4Paroxysmal atrial fibrillation 07/17/2024Longstanding persistent atrial zoemlhvgxkgd75/22/2024cute combined systolic and diastolic heart dpvyzxf1907/02/2024ltered mental wuvnid0206/12/2024 Edema of both lower legs06/12/2024Leg ulcer, left06/12/2024Leg wound, right 06/12/2024Open wound of left thigh06/12/2024Uses aosqas1606/12/2024Varicose veins of both legs with edema06/12/2024Stage 3a chronic kidney khciuro48/06/2023DM type 2 (diabetes mellitus, type 2)09/13/2022Vaginal iijqxboss34/03/2023Vaginal intraepithelial neoplasia III (VAIN III)09/13/2022Vulvar intraepithelial neoplasia (VIVEK) grade 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 [place] and presents today with granddaughter who [...] prevent rehospitalization forheart failure exacerbation Brain stem xwkzsqt8409/13/2022reast cancer of upper-outer quadrant of right female icrhek0509/13/2022ervical disc rouyjcu0709/13/2022hronic anticoagulation 09/13/2022hronic low back pain09/13/2022hronic obstructive pulmonary disease 9998Riotzsimjnqwwf86/03/8199Jncbd39/03/2023Invasive ductal carcinoma of right nvorxa3109/13/20223295Gilqqcvqnz14/03/2023seudoaneurysm of femoral artery 09/13/2022ure qogaymhvjrazrdcfeukx87/03/2023Rectal lnooogib94/03/2023Stage 2 chronic kidney ftncets8509/13/2022ostoperative state2Chronic diastolic heart mkghzla89/09/5061Tcraoin79/08/2022HGSIL Pap smear of xwakew9304/13/2021VAIN II (vaginal intraepithelial neoplasia grade II)10/13/2017 Overview (09/13/2022): Added automatically from request for surgery [id number] Atherosclerosis of [place] coronary artery of [place] heart without angina /08/2017 Assessment & Plan (05/27/2024 12:48 PM EDT): [...] exercise as tolerated and continue all medications. Tmgvmawbimft23/08/2017 Assessment & Plan (05/27/2024 12:56 PM EDT): As above S/P coronary artery stent srcpjupey55/08/2017 Assessment & Plan (05/27/2024 12:57 PM EDT): Remains on ASA No c/o angina or concerns Moderate smoker (20 or less per day)01/16/2017Angina aeesribn15/12/2012 Gastroesophageal reflux tzijbos9412/22/20114184Tghwpljezfbgmr67/12/2012 Assessment & Plan (05/27/2024 12:54 PM EDT): Lipid abnormalities are elevated therefore will increase zocor to 40 mg daily. Will repeat lipid level and liver function in 2-3 months Zmgyxfhyzcwpwm78/12/2012enign hypertensive cardiomyopathy with heart failure 12/22/2011 Assessment [...] DoseAutomatic EntryManual EntryFluoro Time17.9 minutes0 .9 minutesAir Nxjoa098 mGy0 jHx617 mGyDose Area Xjdixrp65,940 mGy-cm2 0 mGy-cm247,940 mGy-cm2 Resolved Problems ProblemNoted DateDiagnosed DateResolved DateBMI 36.0-36.9,adult09/13/2022 07/17/2024aroxysmal atrial Assessment & Plan (05/27/2024 12:56 PM EDT): GVX9CJ7-VVZj= 6-7 at least with Age, Sex, CHF, CAD/Vascular disease, HTN, DM Currently per assessment she appears to be in rhythm heart rate well-controlled with metoprolol 200mg daily and she remains on Eliquis anticoagulation without any bleeding tendencies or concerns.
[2025-08-04 10:03] VITALS: BP 141/78; PULSE 78; TEMP 36.5; O2SAT 96
--- OUTSIDE RECORDS SUMMARY | 2025-08-04 10:03 | XMS_ITS | CCD ---
Author Organization [facility] Care Team Providers Care Environmental Technician Name Role Phone Mateus Perry MD Primary Care Provider [phone] Mateus Perry Primary Care Physician Mateus Perry MD Primary Care Provider [phone] Mateus Perry MD Primary Care Provider [phone] MD Mateus Perry Primary Care Provider [phone] MD Christiano Gonzales Attending Provider Christiano Gonzales [...] Unavailable HOY ., DR IGNACIO Consulting Unavailable [place], DR JUDSON Plunkett Consulting Unavailable MISC, DR [...] HOY ., DR IGNACIO Primary Care Unavailable [place], DR JUDSON Plunkett Consulting Unavailable NILL ., [...] Unavailable HOY ., DR IGNACIO Consulting Unavailable [place], DR JUDSON Plunkett Consulting Unavailable HOY ., [...] Unavailable MD Mateus Perry Primary Care Provider [phone] FERNY Mathews Attending Provider MD Mateus Perry Primary Care Provider [phone] FERNY Mathews Attending Provider Mateus Perry MD Primary Care Provider Mateus Perry MD Primary Care Provider [phone] VAIBHAV ASHTON Attending Unavailable WALLACE STONE Referring Unavailable HOModesta, MATEUS M Primary Care Unavailable HOModesta, MATEUS M Primary Care Unavailable Mateus Perry MD Primary Care Provider Christiano Mcdonnell MD Attending Provider Mateus Perry MD Primary Care Provider Christiano Mcdonnell MD Attending Provider Mateus Perry MD Primary Care Provider Christiano Mcdonnell MD Attending Provider Christiano Mcdonnell [...] Unavailable Mateus Perry MD Primary Care Provider [phone] Christiano Mcdonnell MD Attending Provider Mor Cutler DO Attending Provider [phone] BRIAN KERN Referring Unavailable CONCHABRIAN Attending Unavailable [...] (20 sources)Acetaminophen / oxyCODONE; Translations: [OXYCODONE-ACETAMINOPHEN] Drug Kkhwdum41-71-2194Sqclr (See Comments), Intolerance, [facility]etMer[facility] (20 sources)Ciprofloxacin; Translations: [ciprofloxacin]Drug Rehigqm67-45-6284 Hives, Urticaria (disorder), Other: See CommentsMercy Health [facility] (20 sources)oxyCODONE; Translations: [oxycodone]Drug Qkhehhx52-91-6446Eohn, Itching (finding)[facility] (20 sources)cefdinir; Translations: [cefdinir]Drug Oufeuyv12-43-3040Askuocfg (disorder), Other: See Comments, Vomiting, Other (See Comments)[facility] [place] (18 sources)traMADol; Translations: [TRAMADOL]Drug Yiredqw87-16-9551Pjccpb Status Change, Other (See Comments)[facility] (1 source)CefuroximeDrug Tyekzpd00-96-1092[facility] Work Phone: (10 sources)Acetaminophen; Translations: [acetaminophen]Drug Rvevkzj99-06-6714 [facility] (2 sources)Acetaminophen / oxyCODONEDrug Vbeihnj76-43-6951Hhq [facility] Repository (1 source)CefuroximeDrug Qlzfuwd11-34-6624BtcUniversity Hospitals [facility] Rep[facility] (2 sources)CiprofloxacinDrug AllergyUniversity Hospitals St. [facility] Repository (1 source)cefdinirDrug Hvnhyff23-03-6397LjgicgxujL[facility] (1 source)CiprofloxacinDrug Vkudrew30-00-3513ThaygznysLake County [facility] Rep[facility] (1 source)oxyCODONEDrug Yuiqvun42-41-8140[facility]qzlq [facility] (1 source)traMADolDrug Hgsotae66-60-3955OrgpazqopLake County [facility] Rep[facility] Medications Current Medications MedicationDrug Class(es)DatesSig (Normalized)Sig (Original)acetaminophen 500 mg oral tablet (20 sources)Start: 04-30-2020 End: 96-53-3236zute 2 tablets by mouth every six hours as neededacetaminophen (TYLENOL EXTRA STRENGTH) 500 mg tablet Take 2 tablets by mouth every 6 hours as needed for Pain. 60 tablet 04/30/2020 Active End: 97-14-9036xpdg 2 tablets by mouth every four hours as needed for pain acetaminophen (TYLENOL) 325 MG tablet Take 650 mg by mouth every 4 hours as needed for Pain 0 06/28/2022 Discontinued (Stop Taking at Discharge) End: 39-76-6919xvek 1 tablet by mouth every four hours as neededAcetaminophen (TYLENOL ARTHRITIS PAIN PO) Take 1 tablet by mouth every 4 hours as needed 0 06/28/2022 Discontinued (Stop Taking at Discharge)Comment on above:Take 2 tablets by mouth every 6 hours as needed for Pain.acetaminophen 325 mg / HYDROcodone bitartrate 5 mg oral tablet (1 source)Opioid AgonistStart: 12-13-2021 End: 05-57-0537PBIIUykexzs-acetaminophen (NORCO) 5-325 MG per tablet Indications: Post-operative state Take 1 tablet by mouth every 4 hours as needed for Pain for up to 7 days. Intended supply: 7 days. Take lowest dose possible to manage pain 10 tablet 0 12/13/2021 12/20/2021 Activealbuterol 0.83 mg/ml inhalation solution (20 sources)beta2-Adrenergic AgonistStart: 73-44-6316gctv 2.5 mg by inhalation four times dailyalbuterol 0.083% Inh Crys 3 mL 2.5 mg, 3 mL, NEB, QID, Refill(s) 0 Start Date: 09/02/22 Status: OrderedStart: 49-27-9223uqiy 1.25 mg by inhalation every four to six hours as neededAlbuterol Sulfate 2.5 mg /3 mL (0.083 %) Solution For Nebulization Active 1.25 MG INHALATION EVERY 4-6 HOURS as needed for Shortness Of Breath April 24, 2019 11:00pm Complies with drug therapyStart: 13-06-8341fvvh 1 puff(s) by inhalation every six hours [...] Inhalation Three times a day Active End: 24-98-2852ARBKQWPIW SULFATE (VENTOLIN INHALATION) Inhale 2 Puffs as [...] oral tablet (20 sources)Dihydropyridine Calcium Channel BlockerStart: 49-44-4174chfx 1 tablet by mouth once dailyamLODIPine (NORVASC) 5 MG tablet Take 5 mg by mouth daily 0 04/05/2021 ActiveStart: 43-83-7318ypyd 5 mg by mouth once dailyStart: 82-91-1833lobz 5 mg by mouth once dailyAmlodipine Active 5 MG PO Daily April 25, 2019 12:00amComment on above:Take by mouth once daily.anastrozole 1 mg oral tablet (20 sources)Aromatase InhibitorStart: 11-09-2022 End: 39-12-4635jptx 1 tablet by mouth once dailyAnastrozole 1 mg tablet Active 1 MG PO Daily November 28, 2022 11:00pm Complies with drug therapyAnastrozole ActiveComment on above:Take 1 tablet by mouth once daily.apixaban 5 mg oral tablet (20 sources)Factor Xa InhibitorStart: 78-58-9105bmlf 1 tablet by mouth twice dailyApixaban (Eliquis) [...] sources)Platelet Aggregation Inhibitor, Nonsteroidal Anti-inflammatory Drug Start: 99-11-8422otqwpkl 81 mg Chew Tab 81 mg = 1 tab(s), Chewed, Daily, Refills(s) 0 Start Date: 09/02/22 Status: OrderedStart: 92-69-6369Ahcewmx (Chang Low Dose Aspirin) 81 mg Tablet,Delayed Release (Dr/Ec) Active 81 MG PO Daily April 24, 2019 11:00pm Complies with drug therapyComment on above:Take 81 mg by mouth once daily.bacitracin 0.5 unt/mg / polymyxin b 10 unt/mg topical ointment (2 sources)Polymyxin-class AntibacterialStart: 06-28-2022 End: 45-78-4430pfeqcbdxec-polymyxin b (POLYSPORIN) 500-19552 UNIT/GM ointment Apply topically 2 times daily. 15 g 1 06/28/2022 06/28/2022 Discontinued (REORDER)cholecalciferol 0.125 mg oral tablet (13 sources)Vitamin DStart: 09-73-0723bhbj 1 tablet by mouth once daily Cholecalciferol [...] cartridge (1 source)Histamine-1 Receptor AntagonistStart: 12-13-2021 End: 98-56-4386pjopfqlqofAHGJG (BENADRYL) injection 12.5 mgdocosahexaenoic acid 120 mg / eicosapentaenoic acid 180 mg oral capsule (9 sources)take 1 capsule by mouth twice dailyOmega 3 1000 MG CAPS Take 1,000 mg by mouth 2 times daily 0 Active End: 16-76-2238bpyy 1 capsule by mouth once dailyOmega-3 Fatty Acids (FISH OIL OMEGA-3) 1000 MG CAPS Take 1,000 mg by mouth daily 0 05/12/2021 Discontinued docusate sodium 50 mg / sennosides, longterm 8.6 mg oral tablet (2 sources)Start: 06-28-2022 End: 61-75-9486rvif 8.6-50 mg by mouth once as neededsenna-docusate (PERICOLACE) 8.6-50 MG per tablet Take 1 tablet by mouth 2 times daily as needed for Constipation 60 tablet 1 06/28/2022 06/28/2022 Discontinued (REORDER)febuxostat 40 mg oral tablet (20 sources)Xanthine Oxidase InhibitorStart: 18-52-6799mjgz 1 tablet by mouth once dailyFebuxostat 40 mg tablet Active 40 MG PO Daily December 10, 2023 11:00pm Complies with drug therapyComment on above:Take 1 tablet by mouth every afternoon.2 ml fentaNYL 0.05 mg/ml injection (6 sources)Opioid AgonistStart: 76-15-0929rkrjkSPB (SUBLIMAZE) injection 50 mcg Start: 24-24-5836zxrghWLE (SUBLIMAZE) injection 25 mcgStart: 12-27-4121smsfzLDB (SUBLIMAZE) injection 50 mcgStart: 28-66-3431behzxJIX (SUBLIMAZE) injection 25 mcgferrous sulfate 325 mg oral tablet (19 sources)Start: 46-30-9730ulke 1 tablet by mouth twice dailyFerrous Sulfate (Feosol) 325 mg (65 mg iron) tablet Active 325 MG PO Twice daily December 10, 2023 11:00pm Complies with drug therapyFish Oils (10 sources)Start: 63-91-9728rdtz 2 capsules by mouth once dailyFish Oil 1000 mg oral capsule 2,000 mg = 2 cap(s), Oral, Daily, Refills(s) 0 Start Date: 09/02/22 Status: Orderedtake 1 capsule by mouth once dailyFish Oil 1000 MG 1 capsule Orally Once a day for 30 day(s) Activefluconazole 100 mg oral tablet (1 source)Azole AntifungalStart: 02-12-9447ctzb 1 tablet by mouth once daily fluconazole (DIFLUCAN) 100 MG tablet TAKE 1 TABLET BY MOUTH EVERY DAY 0 12/15/2021 Gmoxco69 actuat fluticasone furoate 0.1 mg/actuat / vilanterol 0.025 mg/actuat dry powder inhaler (11 sources)Corticosteroid, beta2-Adrenergic AgonistStart: 42-34-3627HPPT ELLIPTA 100-25 mcg/dose inhaler Inhale 1 Inhalation as instructed once daily. 08/21/2017 ActiveComment on above:Inhale 1 Inhalation as instructed once daily. furosemide 40 mg oral tablet (20 sources)Loop DiureticStart: 32-93-8594bjqi 1 tablet by mouth every other day Furosemide 40 mg Tablet Active 40 MG PO Q2D November 28, 2022 11:00pm Complies with drug therapyStart: 33-04-1830ifui 1 tablet by mouth twice dailyLasix 20 [...] 100 mg oral capsule (1 source)Anti-epileptic AgentStart: 53-70-5032Cfsnobtfib 100 mg capsule Active MG PO July 14, 2025 12:00am Complies with drug therapyhydrALAZINE hydrochloride 100 mg oral tablet (20 sources)Arteriolar VasodilatorStart: 45-40-9381umnn 1 tablet by mouth three times dailyHydralazine 100 mg Tablet Active 100 MG PO Three times daily April 24, 2019 11:00pm Complies with drug therapyComment on above:Take 100 mg by mouth three times daily. hydroCHLOROthiazide 12.5 mg oral tablet (20 sources)Thiazide DiureticStart: 91-12-3025pkiw 1 tablet by mouth twice daily hydrochlorothiazide 12.5 mg Tab 12.5 mg = 1 tab(s), Oral, BID, Refills(s) 0 Start Date: 09/02/22 Status: OrderedStart: 03-20-2021 End: 47-48-3106ykrniEMCTIUpehlakht (HYDRODIURIL) 12.5 MG tablet Take by mouth every other day On days taking-takesmed twice per day 0 03/20/2021 05/12/2021 Discontinued (Therapy completed)Start: 04-25-2019 End: 58-57-4143aaji 1 tablet by mouth once dailyHydrochlorothiazide 12.5 mg Tablet Discontinued 12.5 MG PO Daily April 24, 2019 11:00pm November 29, 2022 8:20amhydroCHLOROthiazide (HYDRODIURIL) 25 MG tablet Take 12.5 mg by mouth every other day 0 Active End: 36-07-9030jjpj 2 tablets by mouth every other dayhydroCHLOROthiazide (HYDRODIURIL) 12.5 MG tablet hydrochlorothiazide 12.5 mg tablet Take 2 tablets e very other day by oral route for 30 days. 0 05/12/2021 DiscontinuedComment on above:Take 12.5 mg by mouth once daily. 3 ml insulin glargine 100 unt/ml pen injector (8 sources)Insulin AnalogStart: 23-25-4796xrpcrm 10 [IU] by subcutaneous injection once daily in the eveningInsulin Glargine (Lantus Solostar U-100 Insulin) 100 unit/mL (3 mL) insulin pen Active 10 UNIT SUBCUT Every evening December 10, 2023 11:00pm Complies with drug therapyinsulin lispro 100 unt/ml injectable solution (2 sources)Insulin AnalogStart: 70-43-9187Mhxxraq Lispro (Humalog U-100 Insulin) 100 unit/mL solution Active 1 sliding scale dose SUBCUT As Directed December 10, 2023 11:00pm Complies with drug therapyInsulin Lispro (Humalog U-100 Insulin) 100 unit/mL solution (6 sources)Start: 76-83-8056Nmzmgnl Lispro (Humalog U-100 Insulin) 100 unit/mL solution Active 1 sliding scale dose SUBCUT As Directed December 10, 2023 11:00pm Start: 50-64-7774Bktikyy Lispro (Humalog U-100 Insulin) 100 unit/mL solution Active 1 sliding scale dose SUBCUT As Directed December 11, 2023 12:00am24 hr isosorbide mononitrate 60 mg extended release oral tablet (20 sources)Nitrate VasodilatorStart: 90-58-2588dzke 1 tablet by mouth once daily in [...] sodium 0.112 mg oral tablet (20 sources)l-ThyroxineStart: 08-78-7039aimc 1 tablet by mouth once daily levothyroxine 112 mcg (0.112 mg) Tab 112 mcg = 1 tab(s), Oral, Daily, Refills(s) 0 Start Date: 09/02/22 Status: OrderedStart: 23-01-2775ltdl 1 tablet by mouth once dailyLevothyroxine 112 mcg Tablet Active 112 MCG PO Daily April 24, 2019 11:00pm Complies with drug therapyStart: 63-69-2287evfbjdmbcwefg (SYNTHROID) 112 mcg tablet Take 125 mcg by mouth once daily. 12/08/2016 Active End: 08-18-3682wxuh 1 tablet by mouth once dailylevothyroxine (SYNTHROID) 125 MCG tablet Take 125 mcg by mouth Daily 0 05/12/2021 DiscontinuedComment on above:Take 125 mcg by mouth once daily. lidocaine 0.05 mg/mg topical ointment (1 source)Antiarrhythmic, Amide Local AnestheticStart: 06-15-2021 End: 13-33-8153egeskgsbp (XYLOCAINE) 5 % ointment Apply topically as needed to the affected area. 50 g 1 06/15/2021 06/15/2021 Discontinued (Stop Taking at Discharge)liothyronine sodium 0.005 mg oral tablet (20 sources)l-TriiodothyronineStart: 19-81-7910nwfd 1 tablet by mouth once daily Liothyronine 5 mcg tablet Active 5 MCG PO Daily November 28, 2022 11:00pm Complies with drug therapyStart: 39-56-4644fntr 2 tablets by mouth once daily Cytomel [...] hydrochloride 500 mg oral tablet (20 sources)BiguanideStart: 17-29-8259sfse 1 tablet by mouth twice daily Metformin 500 mg Tablet Active 500 MG PO Twice daily April 24, 2019 11:00pm Complies with drug therapyComment on above:Take 500 mg by mouth twice daily with meals.24 hr metoprolol succinate 200 mg extended release oral tablet (20 sources)beta-Adrenergic BlockerStart: 92-01-8844eawg 1 tablet by mouth once dailyMetoprolol Succinate 200 mg Tablet Extended Release 24 Hr Active 200 MG PO Daily April 24, 2019 11:00pm Complies with drug therapy End: 57-39-0855pang 0.5 tablet by mouth once dailymetoprolol tartrate, [...] 100 unt/mg topical powder (7 sources)Polyene AntifungalStart: 13-60-9951wbthjeaa (MYCOSTATIN) 824606 UNIT/GM powder Apply 3 times daily. 60 g 10 06/28/2022 Activenystatin (MYCOSTATIN) 246481 UNIT/GM powder Apply topically 2 times daily as needed 0 JmjdnuVgsxr-2-CAR-EPA-Fish Oil 1,000 mg (120 mg-180 mg) cap (11 sources)take 1 capsule by mouth twice dwrakCsuun-2-JOC-EPA-Fish Oil 1,000 mg (120 mg-180 mg) cap Take 2 g by mouth twice daily. Activetake 1 capsule by mouth twice okkiqBrbpx-5-TAV-EPA-Fish Oil 1,000 mg (120 mg-180 mg) cap Take 2 g by mouth twice daily. 0 ActiveComment on above:Take 2 g by mouth twice daily. Pirgj-7u-Out-Epa-Fish Oil ([place]-3 Fish Oil) 300-1,000 mg Capsule (9 sources)Start: 98-04-9169Quijk-3t-Qvm-Rzl-Fish Oil ([place]-3 Fish Oil) 300- 1,000 mg Capsule Active 2 CAP PO Twice daily April 24, 2019 11:00pm Complies with drug therapyStart: 73-37-8129Bxlic: 94-12-9724Djrcl-6e-Ijv-Udm-Fish Oil ([place]-3 Fish Oil) 300-1,000 mg Capsule Active 2 CAP PO Twice daily April 24, 2019 11:00pmStart: 02-45-0505Fsicq-0o-Wgy-Qee-Fish Oil ([place]-3 Fish Oil) 300- 1,000 mg Capsule Active 2 CAP PO Twice daily April 25, 2019 12:00am ondansetron 4 mg disintegrating oral tablet (14 sources)Serotonin-3 Receptor AntagonistStart: 64-14-3308kmhm 1 tablet by mouth four times dailyondansetron 4 mg Dis Tab 4 mg = 1 tab(s), Oral, QID, Refills(s) 0 Start Date: 09/02/22 Status: OrderedStart: 06-28-2022 End: 56-17-4050hgeotjgieyh (ZOFRAN) injection 4 mgStart: 12-13-2021 End: 42-31-3969tikuflvsupx (ZOFRAN) injection 4 mg End: 24-44-3399hnlt 1 tablet by mouth every eight hours as neededondansetron (ZOFRAN) 4 mg tablet Take 4 mg by mouth every 8 hours as needed for nausea/vomiting. 0 06/20/2023 Discontinued (Discontinued by Patient)Comment on above:Take 4 mg by mouth every 8 hours as needed for nausea/vomiting. pantoprazole 40 mg delayed release oral tablet (14 sources)Proton Pump InhibitorStart: 21-22-0555wycw 1 tablet by mouth once dailyPantoprazole [address] Tab 40 mg = 1 tab(s), Oral, Daily, Refills(s) 0 Start Date: 09/02/22 Status: OrderedStart: 09-02-2022 End: 03-35-7268diuo 1 tablet by mouth once dailyPantoprazole [address] Tab 40 mg = 1 tab(s), Oral, Daily, Refills(s) 0 Start Date: 09/02/22 Status: Ordered End: 66-60-4687pdnn 1 tablet by mouth once dailypantoprazole DR (PROTONIX) 40 mg tablet Take 40 mg by mouth once daily. 0 06/20/2023 Discontinued (Discontinued by Patient)Comment on above:Take 40 mg by mouth once daily.potassium chloride 10 meq extended release oral tablet (13 sources)Start: 64-42-9077Nfkjmpcih Chloride 10 mEq tablet extended release Active MEQ PO July 14, 2025 12:00am Complieswith drug therapyStart: 18-69-6504cbpv 1 tablet by mouth three times dailypotassium [...] mg/ml rectal foam (2 sources)Start: 06-28-2022 End: 33-20-2274rgzxzoyoi HCl (PROCTOFOAM) 1 % foam Apply to hemorrhoids and anal area for postop pain as needed 15g 0 06/28/2022 06/28/2022 Discontinued (REORDER)predniSONE 5 mg oral tablet (5 sources)Start: 35-68-7738rnufwdLMLX (DELTASONE) 5 mg tablet TAKE 6 TABLETS ON DAYS 1-3 DIRECTED AND DECREASE BY 1 TAB EVERY 3 DAYS 06/08/2023 ActiveStart: 38-35-6158izqwebFWBM (DELTASONE) 20 MG tabletComment on above:TAKE 6 TABLETS ON DAYS 1-3 DIRECTED AND DECREASE BY 1 TAB EVERY 3 DAYSsilver sulfADIAZINE 10 mg/ml topical cream (2 sources)Sulfonamide AntibacterialStart: 06-28-2022 End: 28-07-2059qjyhhf sulfADIAZINE (SILVADENE) 1 % cream Apply topically daily. 25 g 1 06/28/2022 06/28/2022 Discontinued (REORDER)simvastatin 20 mg oral tablet (20 sources)HMG-CoA Reductase InhibitorStart: 09-02-2022 End: 33-77-6397uscm 1 tablet by mouth once daily at bedtimesimvastatin 20 mg Tab 20 mg = 1 tab(s), Oral, Once a day (at bedtime), Refills(s) 0 Start Date: 08/12 11/30 Status: OrderedStart: 26-08-7608cmez 1 tablet by mouth once daily in [...] chloride flush 0.9 % injection 5-40 mLStart: 96-06-9900ilgcln chloride flush 0.9 % injection 5-40 mLStart: .9 % sodium chloride infusion Start: 05-55-4431jdwxmf chloride flush 0.9 % injection 5-40 mLspironolactone 50 mg oral tablet (15 sources)Aldosterone AntagonistStart: 22-03-7229hupk 1 tablet by mouth once dailySpironolactone (Aldactone) 50 mg tablet Active 50 MG PO Daily December 10, 2023 11:00pm Complies with drug therapyStart: 83-23-6837keoh 0.5 tablet by mouth in the morningspironolactone (ALDACTONE) 25 MG tablet TAKE 1/2 TABLET BY MOUTH IN THE MORNING 0 09/22/2022 Activesucralfate 1000 mg oral tablet (20 sources)Aluminum ComplexStart: 21-09-9573vzys 1 tablet by mouth at bedtime Sucralfate 1 gram tablet Active 1 GM PO Before meals and at bedtime November 28, 2022 11:00pm Complies with drug therapyStart: 75-83-0706Pwrosqpf 1 gram Tab 1 gm = 1 tab(s), Oral, QIDACHS, Refills(s) 0 Start Date: 09/02/22 Status: Ordered Sucralfate ActiveComment on above:Take 1 g by mouth four times daily. Sulfamethoxazole / Trimethoprim (2 sources)Dihydrofolate Reductase Inhibitor Antibacterial, Sulfonamide AntimicrobialBactrim ActivetraMADol hydrochloride 50 mg oral tablet (1 source)Opioid AgonistStart: 68-28-7929krnr 1 tablet by mouth once daily Tramadol 50 mg tablet Active 50 MG PO Daily July 14, 2025 12:00am Complies with drug therapytriamcinolone acetonide 1 mg/ml topical cream (6 sources)Corticosteroidtriamcinolone (KENALOG) 0.1 % cream Apply topically 2 times daily as needed 0 ActiveVitamin D3 (2 sources)Vitamin D3 ActiveVitamin D3 2000 intl units oral Tab (4 sources)Start: 93-81-2964qvye 1 tablet by mouth once dailyVitamin D3 2000 intl units oral Tab 50 mcg, Oral, Daily, tab(s), Refills(s) 0 Start Date: 09/02/22 Status: Ordered Completed/Discontinued Medications MedicationDrug Class(es)DatesSig (Normalized)Sig (Original)albuterol 0.833 mg/ml / ipratropium bromide 0.167 mg/ml inhalation solution (1 source)Anticholinergic, beta2-Adrenergic AgonistStart: 06-15-2021 End: 40-31-1674bkfxrqgqxwp-albuterol (DUONEB) nebulizer solution 1 ampule amoxicillin 875 mg / clavulanate 125 mg oral tablet (8 sources)Penicillin-class AntibacterialStart: 02-13-2024 End: 95-82-3069gaft 1 tablet by mouth once dailyAmoxicillin-Pot Clavulanate 875- 125 mg tablet Discontinued TAB PO Daily February 12, 2024 11:00pm July 14, 2025 11:07amcalcium chloride 0.0014 meq/ml / potassium chloride 0.004 meq/ml / sodium chloride 0.103 meq/ml / sodium lactate 0.028 meq/ml injectable solution (3 sources)Start: 06-28-2022 End: 28-88-6009fzgxnsds ringers infusionStart: 24-48-3482xprstdro ringers infusionStart: 88-49-1556fdizjjke ringers infusioncetirizine hydrochloride 10 mg oral capsule (17 sources)Histamine-1 Receptor AntagonistStart: 04-25-2019 End: 59-44-4532mesy 1 tablet by mouth twice dailyCetirizine (Zyrtec) 10 mg Capsule Discontinued 1 TAB PO Twice daily April 24, 2019 11:00pm 2022 8:23amStart: 01-28-2019 End: 47-76-0922tnoe 1 tablet by mouth twice dailycetirizine (ZYRTEC) 10 mg tablet Take 10 mg by mouth twice daily. 11 01/28/2019 06/20/2023 Discontinued (Discontinued by Patient)Comment on above:Take 10 mg by mouth twice daily. citalopram 20 mg oral tablet (20 sources)Serotonin Reuptake InhibitorStart: 01-01-2019 End: 73-89-8225ivqp 1 tablet by mouth once dailyCitalopram 20 mg Tablet Discontinued 20 MG PO Daily April 24, 2019 11:00pm November 29, 2022 8:23am Start: 98-08-1414tjldmbztjl (CELEXA) 20 mg tablet 11 01/01/2019 Activedocusate sodium 100 mg oral capsule (8 sources)Start: 04-30-2020 End: 54-99-2167rjwd 2 capsules by mouth every twenty-four hours as needed docusate sodium (COLACE) 100 mg capsule Take 2 capsules by mouth at bedtime as needed (opioid-induced constipation). 60 capsule 0 04/30/2020 06/20/2023 Discontinued (Discontinued by Patient)Comment on above:Take 2 capsules by mouth at bedtime as needed (opioid-induced constipation).empagliflozin 10 mg oral tablet (19 sources)Sodium-Glucose Cotransporter 2 InhibitorStart: 12-11-2023 End: 68-71-6564gywk 1 tablet by mouth once dailyEmpagliflozin (Jardiance) 10 mg tablet Discontinued 10 MG PO Daily December 10, 2023 11:00pm July 14, 2025 11:08am60 actuat formoterol fumarate 0.005 mg/actuat / mometasone furoate 0.1 mg/actuat metered dose inhaler (8 sources)Corticosteroid, beta2-Adrenergic AgonistStart: 2018 End: 65-89-4723CDSMME 100-5 mcg/actuation inhalerglimepiride 4 mg oral tablet (20 sources)SulfonylureaStart: 04-25-2019 End: 64-20-4628bkmy 1 tablet by mouth twice dailyGlimepiride 4 [...] oral tablet (10 sources)Quinolone AntimicrobialStart: 09-21-2022 End: 00-96-4012gjfkIDVExsud (LEVAQUIN) 750 mg tabletStart: 72-45-7616lnkl 1 tablet by mouth once dailylevoFLOXacin (LEVAQUIN) 500 MG tablet TAKE 1 TABLET BY MOUTH EVERY DAY 0 12/09/2021 Activetake 1 tablet by mouth once daily LEVOFLOXACIN PO Take 1 tablet by mouth daily 0 Activemeloxicam 15 mg oral tablet (17 sources)Nonsteroidal Anti-inflammatory DrugStart: 11-02-2022 End: 90-35-1466smvn 1 tablet by mouth once dailyMeloxicam 15 mg tablet Discontinued 15 MG PO Daily November 28, 2022 11:00pm December 11, 2023 8:24am Comment on above:Take 15 mg by mouth once daily.nitrofurantoin 5 mg/ml oral suspension (10 sources)Nitrofuran AntibacterialStart: 11-29-2022 End: 42-95-3964klbk 50 mg by mouth four times daily [...] valgus (acquired), left foot; Translations: [Hallux valgus (acquired)]70-22-2381SrsqlufOcpkbtlh foot deformities (4 sources)Acquired deformity of toe of left foot; Translations: [Acquired deformities of toe(s), unspecified,left foot]07-84-4181TqmzhuycPnqpc bronchitis (1 source)Acute bronchitis, unspecified; Translations: [ACUTE BRONCHITIS UNSPECIFIED]Onset: 81-46-6791MzsrkigfGaztvavz reactions (1 source)Eczema; Translations: [Other specified dermatitis]EpisodicAortic; peripheral; and visceral artery aneurysms (4 sources)Femoral false mweyhmay50-46-5808SthanhvDgykxn (1 source)Unspecified asthma, uncomplicated; Translations: [UNSPECIFIED ASTHMA UNCOMPLICATED]Onset: 00-78-9190RprdjpsZjynkr of breast (20 sources)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 female breast; Translations: [Infiltrating ductcarcinoma of breast]Onset: 95-32-9929Omadgvu Cancer of other female genital organs (20 sources)Vaginal intraepithelial neoplasia; 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]ChronicCardiac dysrhythmias (8 sources)Paroxysmal atrial fibrillation; Translations: [Paroxysmal atrial fibrillation]Onset: 036457-62-3679ThannzePjktgbh kidney disease (13 sources)Chronic kidney disease stage 2; Translations: [Chronic kidney disease, stage 2 (mild)]Onset: 642942-13-4298XtpoguzKadgfsc obstructive pulmonary disease and bronchiectasis (5 sources)Chronic obstructive lung disease; Translations: [Chronic obstructive pulmonary disease, unspecified]Onset: 162561-03-3486HwvzygkEieogxp ulcer of skin (17 sources)Ulcer of lower extremity; Translations: [Non-pressure chronic ulcer of unspecified part of left lower leg with unspecified severity]12-11-2023 ChronicConditions associated with dizziness or vertigo (4 sources)Brain stem uowacck79-29-3163IudhnnvvHzerxonnnm disorders (4 sources)Presence of automatic (implantable) cardiac defibrillator; Translations: [Presence of cardiac pacemaker]Onset: 79-71-7701KsgyjlrDcjzzfqpeh heart failure; nonhypertensive (18 sources)Acute combined systolic and diastolic heart failure; Translations: [Chronic diastolic heart failure]Onset: 429830-88-3101UfwewglZisqxaxn atherosclerosis and other heart disease (16 sources)Coronary arteriosclerosis; Translations: [Coronary atherosclerosis] Onset: 643956-91-3723NwpntdyMxhtfsph mellitus with complications (14 sources)Type 2 diabetes mellitus with diabetic chronic kidney disease; Translations: [Type 2 diabetes mellitus with diabetic peripheral angiopathy without gangrene]Onset: 22-35-7523TrakdqpLzxmqhdp mellitus without complication (20 sources)Diabetes mellitus; Translations: [Type 2 diabetes mellitus]Onset: 651142-48-0614WcofznvLzbezlq on above:Problem List clean-up per request of Phys. EHR CmteDisorders of lipid metabolism (20 sources)Hypertriglyceridemia; Translations: [Pure hypercholesterolemia] Onset: 862556-54-9531EurkwodOnhvpvrvokmqvx and diverticulitis (4 sources)Diverticular splfhei26-89-4595HwelmnvRsajhcgueb disorders (5 sources)Gastroesophageal reflux disease; Translations: [Gastro-esophageal reflux disease without esophagitis]Onset: 749127-76-6990YlsexzoMsnkguhux hypertension (20 sources)Hypertensive disorder; Translations: [Essential (primary) hypertension]Onset: 800730-62-1261AehqtbuOnai and other crystal arthropathies (1 source)Gout, unspecified; Translations: [Gout, unspecified]Onset: 10-29-2024 ChronicHypertension with complications and secondary hypertension (2 sources)Hypertensive heart and chronic kidney disease with heart failure and stage 1 through stage 4 chronic kidney disease, or unspecified chronic kidney disease; Translations: [Hypertensive heart disease with heart failure]Onset: 55-27-0040XbxdfjeHlvhxtf (8 sources)Pain in toe; Translations: [Tinea unguium]21-43-7452TddesdrrCfdfvpqfh of unspecified nature or uncertain behavior (6 sources)Neoplasm of uncertain behavior of skin; Translations: [Neoplasm of uncertain behavior of skin]17-91-1372NuperfxgZuvfrqgzs or stenosis of precerebral arteries (12 sources)Carotid artery stenosis; Translations: [Occlusion and stenosis of bilateral carotid arteries]ChronicOpen wounds of extremities (11 sources)Open wound of left thigh; Translations: [Unspecified open wound, left thigh, initial encounter]94-66-2571IefopwveDvjc wounds of extremities (11 sources)Injury of right leg; Translations: [Unspecified open wound, right lower leg, initial encounter]48-18-5211MseclndoAzfggwjirphzgi (2 sources)Osteoarthritis of right hip joint; Translations: [Unilateral primary osteoarthritis, right hip]44-40-8201UexxjliLdewwksphexi (5 sources)Age-related osteoporosis without current pathological fracture; Translations: [AGE-REL OSTEOPOR W/OCURR PATH FX]Onset: 07-13-6458ZazzamfWkofj aftercare (5 sources)Long-term current use of anticoagulant; Translations: [assisted (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]Onset: 88-70-8060RnurebpqGsdkt aftercare (1 source)assisted (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; Translations: [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 CURRNT USE ANTICOAGULANTS]Onset: 10-65-6035DufuzbwlMkmup aftercare (1 source)assisted (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 oral hypoglycemic drugs; Translations: [DETENTION USE ORAL HYPOGLYCEMIC DX]Onset: 06-58-3857SwtuaegmIiisf aftercare (1 source)Other correction (current) drug therapy; Translations: [OTH 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 OPERATOR CURRENT DRUG THERAPY]Onset: 76-95-2092YdueznhvLmdkx bone disease and musculoskeletal deformities (4 sources)Xhqskdhnde53-93-6102NvswxvgyGtoim connective tissue disease (3 sources)Other specified soft tissue disordersEpisodicOther connective tissue disease (1 source)Pain in right lower legEpisodicOther diseases of veins and lymphatics (8 sources)Vascular insufficiency; Translations: [Venous insufficiency (chronic) (peripheral)]05-66-4551IzwgwzuzRdpla female genital disorders (3 sources)Dysplasia of vagina; 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, unspecified] EpisodicOther nutritional; endocrine; and metabolic disorders (4 sources)Body mass index 30+ - anuxgve90-20-2715WqbjbzyEvzlq skin disorders (1 source)Localized swelling, mass and lump, lower limb, bilateral; Translations: [LOC SWELL MASS LUMP LOW LIMB DAVID]Onset: 83-85-4570OcviechxHzbjz skin disorders (1 source)Eruption; Translations: [Rash and other nonspecific skin eruption] EpisodicPeripheral and visceral atherosclerosis (20 sources)Atherosclerosis of arteries of the extremities; Translations: [Peripheral vascular disease]Onset: 025336-00-4759NayolwuQxbwcfi on above: Problem List clean-up per request of Phys. EHR CmteResidual codes; unclassified (11 sources)Dependence on other enabling machines and devices; Translations: [Uses walker]62-73-9941PxlwqpgNlzewfco codes; unclassified (4 sources)Hhocg39-19-1613XtbhgqytMjzgpcek codes; unclassified (6 sources)Localized edema; Translations: [Edema]EpisodicResidual codes; unclassified (4 sources)Edema, unspecified; Translations: [EDEMA UNSPECIFIED]Onset: 41-41-8751ZwhabuxuHkjcfuou codes; unclassified (1 source)Family history of malignant neoplasm of breast; Translations: [FAMILY HX MALIG NEOPLASM OF BREAST]Onset: 07-58-8226KogqcyyxAtjqszae codes; unclassified (8 sources)Bilateral lower leg edema; Translations: [Localized edema]12-11-2023 EpisodicResidual codes; unclassified (8 sources)Altered mental status; Translations: [Altered mental status, unspecified]54-82-9666BgmtlzwrUuqnzgnq codes; unclassified (3 sources)Altered mental status, unspecified; Translations: [Altered mental status]59-03-2870YhguawpuYeodqnyi codes; unclassified (5 sources)Inflammatory kdujbjxm96-52-6707SydjanigZhkapsxjel arthritis and related disease (1 source)Rheumatoid arthritis, unspecified; Translations: [Rheumatoid arthritis, unspecified]Onset: 40-99-4733IqttvvbInzxjcisz and history of mental health and substance abuse codes (1 source)Personal history of nicotine dependence; Translations: [PERSONAL HISTORY OF NICOTINE DEPEND]Onset: 78-84-6605OffdsaksPiateyianpf; intervertebral disc disorders; other back problems (4 sources)Cervical disc fhenwcqz55-81-1966PfqluqrTxcexzyeudt; intervertebral disc disorders; other back problems (4 sources)Chronic low back ikkf94-77-9443TdujlsnyAbshfelbo-cltjwny disorders (11 sources)Moderate smoker (20 or less per day) ; Translations: [Nicotine dependence, cigarettes, uncomplicated]Onset: 968147-71-3427RwtfixhFsfbozd disorders (16 sources)Hypothyroidism; Translations: [Hypothyroidism, unspecified]Onset: 769523-18-9536ZzarbswNnkytamdknhl (4 sources)CONTACT W/AND (SUSP) EXPOS COVID-19; Translations: [CONTACT W/AND (SUSP) EXPOS COVID-19]Onset: 90-64-7668Magqpnnumyhn (1 source)COUGH, UNSPECIFIED; Translations: [COUGH, UNSPECIFIED]Onset: 23-10-5382Bqxfkdlvijnu (2 sources)BX; Translations: [BX]Onset: 24-55-3793Fahbfknpytll (6 sources)Inflammatory disorder; Translations: [Inflammation]41-15-3943Ggrprms tract infections (4 sources)Urinary tract infection, site not specified; Translations: [UTI SITE NOT SPECIFIED]Onset: 50-24-0705GvpquzcfYueqmnps veins of lower extremity (11 sources)Varicose veins of lower limb co-occurrent with edema; Translations: [Varicose veins of bilateral lower extremities with other complications] 54-66-6499PenrxcwlPpenw infection (4 sources)COVID-19; Translations: [COVID-19]Onset: 03-17-2022 Past or Other Problems Problem ClassificationProblemDateDocumented DateEpisodic/ChronicCancer of other female genital organs (8 sources)High grade squamous intraepithelial lesion on vaginal Papanicolaou smear; Translations: [High gradesquamous intraepithelial lesion on cytologic smear of vagina (HGSIL)]Onset: 640610-68-7593AmjmyqsvLedoucy dysrhythmias (2 sources)Palpitations; Translations: [Palpitations]Onset: 00-33-0736Kpuxmkfp Coronary atherosclerosis and other heart disease (1 source)Presence of coronary angioplasty implant and graft; Translations: [PRESENCE COR ANGPLSTY IMPLANT AND GRAFT]Onset: 35-21-3346TlagscfqGhcymuryov and other anemia (1 source)Anemia, unspecified; Translations: [ANEMIA UNSPECIFIED]Onset: 80-57-8087EijlbtkqLiikf and electrolyte disorders (4 sources)Hypokalemia; Translations: [HYPOKALEMIA]Onset: 97-43-4939Zyjoovtn Gastritis and duodenitis (4 sources)Gastritis, unspecified, without bleeding; Translations: [GASTRITIS UNS WITHOUT BLEEDING]Onset: 00-01-9055GauewwthBalddbkelwcjrtqr hemorrhage (9 sources)Rectal hemorrhage; Translations: [Hemorrhage of anus and rectum] Onset: 762052-74-3995XchinnsdFbuvs valve disorders (1 source)Cardiac murmur, unspecified; Translations: [CARDIAC MURMUR UNSPECIFIED]Onset: 78-18-3562JrmvekctMjmctrhimtdyh and screening for infectious disease (1 source)Encounter for immunization; Translations: [ENCOUNTER FOR IMMUNIZATION] Onset: 93-46-7683OnuzviwkWtxwsvjnbnfk breast conditions (4 sources)Unspecified lump in the right breast, upper outer quadrant; Translations: [UNS LUMP IN RT BREAST UPOUTR QUAD]Onset: 81-37-2130DvtexcpdSlnnx aftercare (1 source)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; Translations: [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 OPERATOR CURRENT USE OF ASPIRIN]Onset: 99-58-5598YnkzkjeqCwujq female genital disorders (11 sources)Vaginal lesion; Translations: [Other specified noninflammatory disorders of vagina]Onset: 269136-36-7643PpwvgdziQicix female genital disorders (11 sources)Vaginal intraepithelial neoplasia grade 2; Translations: [Moderate vaginal dysplasia]Onset: 576414-94-5544CtcjxzuyBjplq female genital disorders (1 source)Other specified noninflammatory disorders of vagina; Translations: [Other specified noninflammatorydisorders of vagina]Onset: 02-88-1474Nkiwsfrs Other female genital disorders (2 sources)Dysplasia of vagina, unspecified; 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, unspecified]Onset: 81-16-6719BiklnzctYgrop gastrointestinal disorders (4 sources)Diarrhea, unspecified; Translations: [DIARRHEA UNSPECIFIED]Onset: 76-30-8034LcficiikPjnch lower respiratory disease (4 sources)Dyspnea, unspecified; Translations: [DYSPNEA UNSPECIFIED]Onset: 05-78-9746HsxwtjvzAahlx lower respiratory disease (4 sources)Other forms of dyspnea; Translations: [OTHER FORMS OF DYSPNEA]Onset: 04-03-9288WugahfzcRvbjm screening for suspected conditions (not mental disorders or infectious disease) (8 sources)Other abnormal and inconclusive findings on diagnostic imaging of breast; Translations: [Encounter for screening mammogram for malignant neoplasm of breast]Onset: 74-53-6175MxthmqitXndxj upper respiratory disease (1 source)Nasal congestion; Translations: [NASAL CONGESTION]Onset: 08-13-2022 EpisodicResidual codes; unclassified (7 sources)Postoperative state; Translations: [Other specified postprocedural states]Onset: 12-13-2021 Resolved: 27-88-8409WfjpajmyMjojqgyf codes; unclassified (1 source)Acquired absence of both cervix and uterus; Translations: [ACQUIRED ABSENCE BOTH CERVIX AND UTERUS]Onset: 44-50-5075WkqoyhxzMmyfexqj codes; unclassified (1 source)Family history of malignant neoplasm of other organs or systems; Translations: [FAM HX MALIG NEOPLASM OTH ORGN/SYS]Onset: 37-58-0011VycmedchDnvj and subcutaneous tissue infections (2 sources)Local infection of the skin and subcutaneous tissue, unspecified; Translations: [Local infection ofthe skin and subcutaneous tissue, unspecified] Onset: 20-72-1122GtyzdqsnImvxiwqjhlpe (6 sources)Complications due to vascular device, implant, and graft; Translations: [Complications due to vascular device, implant, and graft] Unclassified (6 sources)E coli infection; Translations: [E coli infection]Unclassified (1 source)CONTACT W/AND (SUSP) EXPOS COVID-19; Translations: [CONTACT W/AND (SUSP) EXPOS COVID-19]Onset: 11-16-2022 Results Test NameValueInterpretationReference RangeFacilityOrders Onlyon 07-10-2025 Orders [id number] Harman Mcleod 1940 F Date Provider Department Center 07/10/2025 MARISOL MORIN [facility] Family History Problem Relation Age of Onset Stroke Mother Coronary artery disease Father Heart attack Father Family Status - Relation Status Age at Mother Father Sister DeceasedNormalUniOhioHealth Arthur G[facility], MD, Cancer CenterOrders Onlyon 06-12-2025 Orders [id number] Harman Mcleod 1940 F Date Provider Department Center 06/12/2025 BRIAN FLANNERY [facility] Family History Problem Relation Age of Onset Stroke Mother Coronary artery disease Father Heart attack Father Family Status - Relation Status Age at Mother Father Sister DeceasedNormalUniOhioHealth Arthur G.[facility]. Bing, MD, Cancer CenterAlanine aminotransferase [Enzymatic activity/volume] in Serum or PlasmaOrdered By: Christiano Mcdonnell on 89-19-9917FVK [Catalytic activity/Vol]13 U/L7-52[facility] - WestComment on above:Performed By: #### ESR, CBC, CMP #### [facility] [address] [place] [address] USAAlbumin [Mass/volume] in Serum or Plasma by Bromocresol green (BCG) dye binding methoOrdered By: Christiano Mcdonnell on 28-61-5274Lsnpqlf BCG dye [Mass/Vol]3.5 g/dL3.5-5.7FNorwalk Memorial HospitalAlkaline phosphatase [Enzymatic activity/volume] in Serum or PlasmaOrdered By: Christiano Mcdonnell on 27-75-7423QDB [Catalytic activity/Vol]122 U/XQnwx81-157HqbijtwdfLake County Memorial Hospital - WestComment on above:Performed By: #### ESR, CBC, CMP #### [facility] [address] [place] [id number] USAAspartate aminotransferase [Enzymatic activity/volume] in Serum or PlasmaOrdered By: Christiano Mcdonnell on 04-96-0436XPK [Catalytic activity/Vol]16 U/W50-96Lcfafekyo Regional Medical CenterComment on above: Performed By: #### ESR, CBC, CMP #### [place] [address] USABasophils [#/volume] in Blood by Automated countOrdered By: Christiano Martinrow on 50-92-9601Ijhzfcbzl (Bld) [#/Vol]0.1 10*3/uL0.0-0.2 [facility] - WestComment on above:Performed By: #### ESR, CBC, CMP #### [place] [address] USABasophils/100 leukocytes in Blood by Automated count Ordered By: Christiano Martinrow on 08-16-7933Aquutuiqz/100 WBC (Bld)0.9 %.[facility] - WestComment on above:Performed By: #### ESR, CBC, CMP #### [place] [address] USABilirubin.total [Mass/volume] in Serum or PlasmaOrdered By: Christianoanali Mcdonnell on 52-87-5469Ninyaemct [Mass/Vol]0.3 mg/dL0.3-1.0L[facility] - WestComment on above:Performed By: #### ESR, CBC, CMP #### [place] [address] USACalcium [Mass/volume] in Serum or PlasmaOrdered By: Christiano Mcdonnell on 98-98-0430Nkjcegv [Mass/Vol]9.4 mg/dL8.6-10.3FNorwalk Memorial HospitalComment on above:Performed By: #### ESR, CBC, CMP #### [place] [address] USACarbon dioxide, total [Moles/volume] in Serum or Plasma Ordered By: Christianoanali Mcdonnell on 43-72-7519UG6 [Moles/Vol]33.6 mmol/LHigh21.0-31.0 [facility] - WestComment on above:Performed By: #### ESR, CBC, CMP #### [place] [address] USAChloride [Moles/volume] in Serum or PlasmaOrdered By: Christiano Mcdonnell on 01-90-1801Iztnsreb [Moles/Vol]98 mmol/L37-462NnodusdnzLake County Memorial Hospital - WestComment on above:Performed By: #### ESR, CBC, CMP #### [facility] [address] [place] [address] USAComplete Blood Count Auto Diffon 45-53-0403Mnei Corpuscular HGB Conc33.2 g/pQUefbtv58.0-35.0The [facility] Physician GroupComment on above:Performed By: #### ESR, CBC, CMP #### [facility] [address] [place] [address] USANRBC%0.1 /100{WBC}Normal0-0.5The [facility] Physician [facility] Comment on above:Performed By: #### ESR, CBC, CMP #### [place] [address] USAWhite Blood Count7.9 [CFU]/mLNormal3.8-11.6The [facility] Phys[facility] HospitalComment on above:Performed By: #### ESR, CBC, CMP #### [facility] [address] [place] [address] USAComprehensive Metabolic Panelon 21-23-6309Mvvaegz [Mass/Vol]3.5 g/dLNormal3.5-5.7The [facility] Physician [facility] HospitalComment on above: Performed By: #### ESR, CBC, CMP #### [facility] [address] [place] [address] USAGFR/1.73 sq M.predicted MDRD (S/P/Bld) [Vol rate/Area] 38.217 mL/min/{1.73_m2}NormalThe [facility] Physician [facility] HospitalComment on above: Performed By: #### ESR, CBC, CMP #### [place] [address] USACreatinine [Mass/volume] in Serum or PlasmaOrdered By: Christiano Mcdonnell on 18-96-5651Roftojzemf [Mass/Vol]1.38 mg/dLHigh0.60-1.20 [facility] - WestComment on above:Performed By: #### ESR, CBC, CMP #### [place] [address] USAEosinophils [#/volume] in Blood by Automated countOrdered By: Christiano Mcdonnell on 52-17-3049Nbohkdjmtje (Bld) [#/Vol]0.6 10*3/uLHigh0.0-0.45 [facility] - WestComment on above:Performed By: #### ESR, CBC, CMP #### [facility] [address] [place] [address] USAEosinophils/100 leukocytes in Blood by Automated count Ordered By: Christiano Mcdonnell on 93-15-2516Fdsxaghznbh/100 WBC (Bld)7.9 %.[facility] - WestComment on above:Performed By: #### ESR, CBC, CMP #### [place] [address] USAErythrocyte Sedimentation Rateon 33-71-1584MPF (Bld) [Velocity]61 mm/hHigh0-29The [facility] Physician GroupComment on above:Result Comment: PERFORMED BY: [place] [address] PATHOLOGIST PULLING MACHINE OPERATOR LIO MIRELES M.D.Performed By: #### ESR, CBC, CMP #### [place] [address] USAErythrocyte distribution width [Ratio] by Automated count Ordered By: Christiano Mcdonnell on 61-36-7933Uxhmmewhhzm distribution width (RBC) [Ratio]15.4 %High11.9-15.3FNorwalk Memorial HospitalComment on above: Performed By: #### ESR, CBC, CMP #### [place] [address] USAErythrocyte sedimentation rate by Photometric method Ordered By: Christiano Mcdonnell on 58-65-2901GEZ Photometric method (Bld) [Velocity] 61 mm/hrHigh0-29[facility] - WestErythrocytes [#/volume] in Blood by Automated countOrdered By: Christiano Mcdonnell on 76-34-4951FJJ (Bld) [#/Vol]3.73 10*6/uL3.60-5.00[facility] - WestComment on above: Performed By: #### ESR, CBC, CMP #### [facility] [address] [place] [address] USAGlomerular filtration rate [Volume Rate/Area] in Serum, Plasma or Blood by CreatinineOrdered By: Christiano Martinrow on 92-93-2096Xovxffecvx filtration rate [Volume Rate/Area] in Serum, Plasma or Blood by Vlltsehdhl94.217 mL/MinLake County Memorial Hospital - WestGlucose [Mass/volume] in Serum or Plasma Ordered By: Christiano Martinrow on 55-04-4906Ktlgulu [Mass/Vol]257 mg/yGNoiw88-448 [facility] - WestComment on above:ADA recommended reference rangeRandom Glucose Reference [...] rangePerformed By: #### ESR, CBC, CMP #### [place] [id number] USAHematocrit [Volume Fraction] of Blood by Automated count Ordered By: Christiano Kecia on 11-92-8561Ibspausjjy (Bld) [Volume fraction]35.7 % 34.0-46.4FNorwalk Memorial HospitalComment on above:Performed By: #### ESR, CBC, CMP #### [facility] [address] [place] [address] USAHemoglobin [Mass/volume] in BloodOrdered By: Christianoanali Mcdonnell on 77-80-8397Ojmucnvcul (Bld) [Mass/Vol]11.9 g/dL11.8-15.4FNorwalk Memorial HospitalComment on above:Performed By: #### ESR, CBC, CMP #### [facility] [address] [place] [id number] USALeukocytes [#/volume] corrected for nucleated erythrocytes in Blood by Automated counOrdered By: Christiano Martinrow on 37-55-9197LDM corrected for nucl RBC Auto (Bld) [#/Vol]7.9 10*3/uL3.8-11.6FNorwalk Memorial HospitalLeukocytes [#/volume] in Blood by Automated countOrdered By: Christiano Kecia on 01-16-9885AAK (Bld) [#/Vol]7.9 10*3/uL3.8-11.6FNorwalk Memorial HospitalComment on above:Performed By: #### ESR, CBC, CMP #### [facility] [address] [place] [id number] USALymphocytes [#/volume] in Blood by Automated countOrdered By: Christiano Mcdonnell on 13-30-0986Urpjrqhwqpy (Bld) [#/Vol]2.3 10*3/uL1.00-4.8 [facility] - WestComment on above:Performed By: #### ESR, CBC, CMP #### [facility] [address] [place] [id number] USALymphocytes/100 leukocytes in Blood by Automated count Ordered By: Christiano Mcdonnell on 63-05-3614Sujzhimjnkr/100 WBC (Bld)29.2 %. [facility] - WestComment on above:Performed By: #### ESR, CBC, CMP #### [address] [address] [facility] [Entitic mass] by Automated countOrdered By: Christiano Mcdonnell on 84-40-5413ZYA (RBC) [Entitic mass]31.8 pg24.7-34.3FNorwalk Memorial HospitalComment on above:Performed By: #### ESR, CBC, CMP #### [facility] [address] [place], [place] [id number] [facility] Auto (RBC) [Mass/Vol]Ordered By: Christiano Mcdonnell on 18-76-0843KCIF (RBC) [Mass/Vol]33.2 g/dL32.0-35.0L[facility] - WestMCV [Entitic volume] by Automated countOrdered By: Christiano Mcdonnell on 83-41-8793DMH (RBC) [Entitic vol]95.9 zA80-183FiiabzgnvLake County Memorial Hospital - West Comment on above:Performed By: #### ESR, CBC, CMP #### [place] [address] USAMonocytes [#/volume] in Blood by Automated countOrdered By: Christiano Mcdonnell on 63-67-6731Wlnlcnmgg (Bld) [#/Vol]0.6 10*3/uL0.0-0.8 [facility] - WestComment on above:Performed By: #### ESR, CBC, CMP #### [place] [address] USAMonocytes/100 leukocytes in Blood by Automated count Ordered By: Christiano Mcdonnell on 07-38-6278Ntoupeihz/100 WBC (Bld)7.5 %.[facility] - WestComment on above:Performed By: #### ESR, CBC, CMP #### [place] [address] USANeutrophils [#/volume] in Blood by Automated countOrdered By: Christiano Mcdonnell on 14-14-1276Ccmhrdlseul (Bld) [#/Vol]4.3 10*3/uL1.8-7.7 [facility] - WestComment on above:Performed By: #### ESR, CBC, CMP #### [place] [address] USANeutrophils/100 leukocytes in Blood by Automated count Ordered By: Christiano Mcdonnell on 55-59-4811Sepaumqxvnx/100 WBC (Bld)54.5 %. [facility] - WestComment on above:Performed By: #### ESR, CBC, CMP #### [place] [address] USANo Panel InformationOrdered By: Christiano Mcdonnell on 02-79-3974Xvdbyhfl Creatinine Clearance (ChemN/Wood County HospitalNucleated erythrocytes [Presence] in Blood by Automated countOrdered By: Christiano Mcdonnell on 19-55-1907Wwxgvhmhh RBC Auto Ql (Bld)0.1 /100{WBC}0-0.5 [facility] - WestPlatelet mean volume [Entitic volume] in Blood by Automated countOrdered By: Christiano Martinrow on 31-84-7134Psxvayhx mean volume (Bld) [Entitic vol]8.3 fL6.3-10.7FNorwalk Memorial HospitalComment on above:Performed By: #### ESR, CBC, CMP #### [place] [address] USAPlatelets [#/volume] in Blood by Automated countOrdered By: Christiano Kecia on 62-54-0260Fnjilngnc (Bld) [#/Vol]252 10*3/eR198-497 [facility] - WestComment on above:Performed By: #### ESR, CBC, CMP #### [place] [address] USAPotassium [Moles/volume] in Serum or PlasmaOrdered By: Christiano Mcdonnell on 02-38-7323Bzcqxwsew [Moles/Vol]4.3 mmol/L3.5-5.1FNorwalk Memorial HospitalComment on above:Hemolysis is present at a level that could interfere with the result.Contact lab if redraw is requiredResult Comment: Hemolysis is present at a level that could interfere with the result. Contact lab if redraw is requiredPerformed By: #### ESR, CBC, CMP #### [place] [id number] USAProtein [Mass/volume] in Serum or PlasmaOrdered By: Christiano Mcdonnell on 41-29-9481Sjkeeix [Mass/Vol]6.5 g/dL6.4-8.9[facility] - WestComment on above:Performed By: #### ESR, CBC, CMP #### [place] [address] USASerum globulin measurement by calculation (mass/volume) Ordered By: Christiano Mcdonnell on 79-12-9391Knssaidr (S) [Mass/Vol]3.0 g/dLLake County Memorial Hospital - WestComment on above:Performed By: #### ESR, CBC, CMP #### [place] [id number] USASerum or plasma albumin/globulin mass ratioOrdered By: Christiano Mcdonnell on 24-15-8937Thvsnoe/Globulin [Mass ratio]1.2 {ratio}[facility] - WestComment on above:Performed By: #### ESR, CBC, CMP #### [place] [address] USASerum or plasma anion gap determinationOrdered By: Christiano Mcdonnell on 18-30-4932Gquxh gap [Moles/Vol]11.7 mmol/L6.0-15.0[facility] - WestComment on above:Performed By: #### ESR, CBC, CMP #### [place] [address] USASodium [Moles/volume] in Serum or PlasmaOrdered By: Christiano Martinrow on 41-24-8981Wqupak [Moles/Vol]139 mmol/E839-516FmmegzpxhLake County Memorial Hospital - WestComment on above:Performed By: #### ESR, CBC, CMP #### [place] [address] USAUrate [Mass/volume] in Serum or PlasmaOrdered By: Christiano Martinrow on 97-49-7641Efvpy [Mass/Vol]3.1 mg/dL2.3-6.6FNorwalk Memorial HospitalComment on above:Result Comment: PERFORMED BY: [place] [address] PATHOLOGIST PULLING MACHINE OPERATOR LIO MIRELES M.D.Performed By: #### ESR, CBC, CMP #### [place] [address] USAUrea nitrogen [Mass/volume] in Serum or PlasmaOrdered By: Christiano Martinrow on 61-95-6926Gyhb nitrogen [Mass/Vol]23 mg/dL7-25[facility] - WestComment on above:Performed By: #### ESR, CBC, CMP #### [place] [address] USAComplete Blood Count Auto Diffon 06-22-0514Bblvupork (Bld) [#/Vol]0.0 10*3/uLNormal0.0-0.2The [facility] Physician GroupComment on above: Performed By: #### ESR, CBC, CMP #### [place] [address] USABasophils/100 WBC (Bld)0.4 %Normal.The [facility] Physician GroupComment on above:Performed By: #### ESR, CBC, CMP #### [place] [address] USAEosinophils (Bld) [#/Vol]0.1 10*3/uLNormal0.0-0.45The [facility] Physician GroupComment on above:Performed By: #### ESR, CBC, CMP #### [place] [address] USAEosinophils/100 WBC (Bld)1.3 %Normal.The [facility] Physician GroupComment on above:Performed By: #### ESR, CBC, CMP #### [place] [address] USAErythrocyte distribution width (RBC) [Ratio]14.0 %Normal 11.9-15.3The [facility] Physician GroupComment on above:Performed By: #### ESR, CBC, CMP #### [place] [address] USAHematocrit (Bld) [Volume fraction]33.9 %Low34.0-46.4The [facility] Physician GroupComment on above:Performed By: #### ESR, CBC, CMP #### [place] [address] USAHemoglobin (Bld) [Mass/Vol]11.2 g/dLLow11.8-15.4The [facility] Physician GroupComment on above:Performed By: #### ESR, CBC, CMP #### [place] [address] USALymphocytes (Bld) [#/Vol]2.2 10*3/uLNormal1.00-4.8The [facility] Physician GroupComment on above:Performed By: #### ESR, CBC, CMP #### [place] [address] USALymphocytes/100 WBC (Bld)21.1 %Normal.The [facility] Physician GroupComment on above:Performed By: #### ESR, CBC, CMP #### [address] (RBC) [Entitic mass]30.9 ddDvlxfr49.7-34.3The [facility] Physician GroupComment on above:Performed By: #### ESR, CBC, CMP #### [place] [address] USAV (RBC) [Entitic vol]93.3 rHYykkxe40-112Oqa [facility] Physician GroupComment on above:Performed By: #### ESR, CBC, CMP #### [place] [address] USAMean Corpuscular HGB Conc33.1 g/fJPdpldm63.0-35.0The [facility] Physician GroupComment on above:Performed By: #### ESR, CBC, CMP #### [place] [address] USAMonocytes (Bld) [#/Vol]1.3 10*3/uLHigh0.0-0.8The [facility] Physician GroupComment on above:Performed By: #### ESR, CBC, CMP #### [place] [address] USAMonocytes/100 WBC (Bld)12.5 %Normal.The [facility] Physician GroupComment on above:Performed By: #### ESR, CBC, CMP #### [place] [address] USANeutrophils (Bld) [#/Vol]6.7 10*3/uLNormal1.8-7.7The [facility] Physician GroupComment on above:Performed By: #### ESR, CBC, CMP #### [place] [address] USANeutrophils/100 WBC (Bld)64.7 %Normal.The [facility] Physician GroupComment on above:Performed By: #### ESR, CBC, CMP #### [facility] [address] [place] [address] USANRBC%0.1 /100{WBC}Normal0-0.5The [facility] Comment on above:Performed By: #### ESR, CBC, CMP #### [place] [address] USAPlatelet mean volume (Bld) [Entitic vol]8.7 fLNormal 6.3-10.7The [facility] Physician GroupComment on above:Performed By: #### ESR, CBC, CMP #### [place] [address] USAPlatelets (Bld) [#/Vol]280 10*3/cTQiazzk466-128Twh [facility] Physician GroupComment on above:Performed By: #### ESR, CBC, CMP #### [place] [address] USARBC (Bld) [#/Vol]3.63 10*6/uLNormal3.60-5.00The [facility] Phys[facility] GroupComment on above:Performed By: #### ESR, CBC, CMP #### [place] [address] USAWBC (Bld) [#/Vol]10.4 10*3/uLNormal3.8-11.6The [facility] Physician GroupComment on above:Performed By: #### ESR, CBC, CMP #### [place] [address] USAWhite Blood Count10.4 [CFU]/mLNormal3.8-11.6The [facility] Physician GroupComment on above:Performed By: #### ESR, CBC, CMP #### [place] [address] USAComprehensive Metabolic Panelon 35-43-0548Fjdjvbt [Mass/Vol]4.0 g/dLNormal3.5-5.7The [facility] Phys[facility] GroupComment on above: Performed By: #### ESR, CBC, CMP #### [place] [address] USAAlbumin/Globulin [Mass ratio]1.5 {ratio}NormalThe Formerly [facility] Physician GroupComment on above:Performed By: #### ESR, CBC, CMP #### [place] [address] USAALP [Catalytic activity/Vol]97 U/WCjmltl01-025Hwr [facility] Physician GroupComment on above:Result Comment: PERFORMED BY: [place] [address] PATHOLOGIST PULLING MACHINE OPERATOR LIO MIRELES M.D.Performed By: #### ESR, CBC, CMP #### [place] [address] USAALT [Catalytic activity/Vol]8 U/LNormal7-52The [facility] Physician GroupComment on above:Performed By: #### ESR, CBC, CMP #### [place] [address] USAAnion gap [Moles/Vol]20.9 mmol/LHigh6.0-15.0The [facility] Phys[facility] GroupComment on above:Performed By: #### ESR, CBC, CMP #### [place] [address] USAAST [Catalytic activity/Vol]13 U/ILtofsm43-62Tpk [facility] Physician GroupComment on above:Performed By: #### ESR, CBC, CMP #### [place] [address] USABilirubin [Mass/Vol]0.5 mg/dLNormal0.3-1.0The [facility] Phys[facility] GroupComment on above:Performed By: #### ESR, CBC, CMP #### [place] [address] USACalcium [Mass/Vol]9.5 mg/dLNormal8.6-10.3The [facility] Physician GroupComment on above:Performed By: #### ESR, CBC, CMP #### [address] [place] [address] USAChloride [Moles/Vol]98 mmol/ORvlphl14-680Gaw [facility] Physician GroupComment on above:Performed By: #### ESR, CBC, CMP #### [facility] [address] [place] [address] USACO2 [Moles/Vol]26.3 mmol/FDkjbim74.0-31.0The [facility] Physician GroupComment on above:Performed By: #### ESR, CBC, CMP #### [facility] [address] [place] [address] USACreatinine [Mass/Vol]1.56 mg/dLHigh0.60-1.20The [facility] Phys[facility] GroupComment on above:Performed By: #### ESR, CBC, CMP #### [facility] [address] [place] [address] USAGFR/1.73 sq M.predicted MDRD (S/P/Bld) [Vol rate/Area] 32.988 mL/min/{1.73_m2}NormalThe [facility]ly [facility] Physician GroupComment on above: Performed By: #### ESR, CBC, CMP #### [facility] [address] [place] [address] USAGlobulin (S) [Mass/Vol]2.7 g/dLNormalThe [facility] Phys[facility] GroupComment on above:Performed By: #### ESR, CBC, CMP #### [facility] [address] [place] [address] USAGlucose [Mass/Vol]96 mg/hFTlfeck48-564Kee [facility] Physician GroupComment on above:Result Comment: Random Glucose Reference Range is dependent on time and content of last meal. Glucose of more than 200 mg/dL in a nonstressed, ambulatory subject supports the diagnosis of Diabetes Mellitus. ADA recommended reference rangePerformed By: #### ESR, CBC, CMP #### [facility] [address] [place] [address] USAPotassium [Moles/Vol]3.2 mmol/LLow3.5-5.1The [facility] Physician GroupComment on above:Performed By: #### ESR, CBC, CMP #### [facility] [address] [place] [address] USAProtein [Mass/Vol]6.7 g/dLNormal6.4-8.9The [facility] Physician GroupComment on above:Performed By: #### ESR, CBC, CMP #### [facility] [address] [place] [address] USASodium [Moles/Vol]142 mmol/WGyubrp628-559Cni [facility] Physician GroupComment on above:Performed By: #### ESR, CBC, CMP #### [facility] [address] [place] [address] USAUrea nitrogen [Mass/Vol]35 mg/dLHigh7-e [facility] Phys[facility] GroupComment on above:Performed By: #### ESR, CBC, CMP #### [facility] [address] [place] [address] USAErythrocyte Sedimentation Rateon 59-34-5317EQR (Bld) [Velocity]63 mm/hHigh0-29The [facility] Physician GroupComment on above:Result Comment: PERFORMED BY: [place] [address] PATHOLOGIST PULLING MACHINE OPERATOR LIO MIRELES M.D.Performed By: #### ESR, CBC, CMP #### [place] [address] USAOffice Visiton 80-81-9867Ldkazw-up [id number] Harman Mcleod 1940 F Date Provider Department Center 01/21/2025 BRIAN FLANNERY [facility] Family History Problem Relation Age of Onset Stroke Mother Coronary artery disease Father Heart attack Father Family Status - Relation Status Age at Mother Father Sister Level of Service:17986 [place] OFFICE/OUTPATIENT ESTABLISHED LOW [facility] TroyAlanine aminotransferase [Enzymatic activity/volume] in Serum or PlasmaOrdered By: Christiano Mcdonnell on 73-03-9831VKE [Catalytic activity/Vol]Alanine aminotransferase [Enzymatic activity/volume] in Serum or PlasmaLake County Memorial Hospital - WestAlbumin [Mass/volume] in Serum or Plasma by Bromocresol green (BCG) dye binding methoOrdered By: Christiano Mcdonnell on 44-42-0134Bifckna BCG dye [Mass/Vol]Albumin [Mass/volume] in Serum or Plasma by Bromocresol green (BCG) dye binding metho3.5-5.7FNorwalk Memorial HospitalAlkaline phosphatase [Enzymatic activity/volume] in Serum or PlasmaOrdered By: Christiano Mcdonnell on 86-41-7378SUP [Catalytic activity/Vol] Alkaline phosphatase [Enzymatic activity/volume] in Serum or Zwviho88-790 [facility] - WestAspartate aminotransferase [Enzymatic activity/volume] in Serum or PlasmaOrdered By: Christiano Mcdonnell on 77-54-4937UTB [Catalytic activity/Vol]Aspartate aminotransferase [Enzymatic activity/volume] in Serum or Yccvfd08-32BgtmgbvgsLake County Memorial Hospital - WestBasophils Auto (Bld) [#/Vol]Ordered By: Christiano Mcdonnell on 79-17-7116Baeihsykf (Bld) [#/Vol]Automated basophil count0.0-0.2FNorwalk Memorial HospitalBasophils/100 WBC Auto (Bld)Ordered By: Christiano Mcdonnell on 72-77-2801Pvkehoppa/100 WBC (Bld)Automated basophil %.[facility] Hospital - WestBilirubin.total [Mass/volume] in Serum or PlasmaOrdered By: Christiano Mcdonnell on 61-32-1064Tamoxbvqz [Mass/Vol] Bilirubin.total [Mass/volume] in Serum or Plasma0.3-1.0[facility] - WestCalcium [Mass/volume] in Serum or PlasmaOrdered By: Christiano Mcdonnell 55-69-0653Eseihrs [Mass/Vol]Calcium [Mass/volume] in Serum or PlasmaHigh 8.6-10.3FNorwalk Memorial HospitalCarbon dioxide, total [Moles/volume] in Serum or PlasmaOrdered By: Christiano Mcdonnell 27-26-8464FP3 [Moles/Vol]Carbon dioxide, total [Moles/volume] in Serum or TlwsvkVpop73.0-31.0[facility] - WestChloride [Moles/volume] in Serum or PlasmaOrdered By: Christiano Mcdonnell 20-90-7965Yfurxqwi [Moles/Vol]Chloride [Moles/volume] in Serum or Zhzytm69-662ZjdkyguhwLake County Memorial Hospital - WestComplete Blood Count Auto Diffon 87-55-3470Sezqvxfxl (Bld) [#/Vol]0.0 10*3/uLNormal0.0-0.2The [facility] Phys[facility] GroupComment on above:Performed By: #### ESR, CBC, CMP #### [facility] [address] [place] [address] USABasophils/100 WBC (Bld)0.4 %Normal.The [facility] Physician GroupComment on above:Performed By: #### ESR, CBC, CMP #### [place] [address] USAEosinophils (Bld) [#/Vol]0.1 10*3/uLNormal0.0-0.45The [facility] Physician GroupComment on above:Performed By: #### ESR, CBC, CMP #### [place] [address] USAEosinophils/100 WBC (Bld)1.1 %Normal.The [facility] Physician GroupComment on above:Performed By: #### ESR, CBC, CMP #### [place] [address] USAErythrocyte distribution width (RBC) [Ratio]14.9 %Normal 11.9-15.3The [facility] Physician GroupComment on above:Performed By: #### ESR, CBC, CMP #### [place] [address] USAHematocrit (Bld) [Volume fraction]37.5 %Eupidp29.0-46.4The [facility] Physician GroupComment on above:Performed By: #### ESR, CBC, CMP #### [place] [address] USAHemoglobin (Bld) [Mass/Vol]12.3 g/jBErlfqc48.8-15.4The [facility] Physician GroupComment on above:Performed By: #### ESR, CBC, CMP #### [place] [address] USALymphocytes (Bld) [#/Vol]1.5 10*3/uLNormal1.00-4.8The [facility] Physician GroupComment on above:Performed By: #### ESR, CBC, CMP #### [place] [address] USALymphocytes/100 WBC (Bld)13.7 %Normal.The [facility] Physician GroupComment on above:Performed By: #### ESR, CBC, CMP #### [address] (RBC) [Entitic mass]30.7 tfOhuyja02.7-34.3The [facility] Physician GroupComment on above:Performed By: #### ESR, CBC, CMP #### [place] [address] USAV (RBC) [Entitic vol]93.2 tTDbwvxs72-479Kun [facility] Physician GroupComment on above:Performed By: #### ESR, CBC, CMP #### [place] [address] USAMean Corpuscular HGB Conc32.9 g/nFBbcgro10.0-35.0The [facility] Physician GroupComment on above:Performed By: #### ESR, CBC, CMP #### [place] [address] USAMonocytes (Bld) [#/Vol]0.7 10*3/uLNormal0.0-0.8The [facility] Physician GroupComment on above:Performed By: #### ESR, CBC, CMP #### [place] [address] USAMonocytes/100 WBC (Bld)6.1 %Normal.The [facility] Physician GroupComment on above:Performed By: #### ESR, CBC, CMP #### [place] [address] USANeutrophils (Bld) [#/Vol]8.5 10*3/uLHigh1.8-7.7The [facility] Phys[facility] GroupComment on above:Performed By: #### ESR, CBC, CMP #### [facility] [address] [place] [address] USANeutrophils/100 WBC (Bld)78.7 %Normal.The [facility] Physician GroupComment on above:Performed By: #### ESR, CBC, CMP #### [place] [address] USANRBC%0.1 /100{WBC}Normal0-0.5The [facility] Comment on above:Performed By: #### ESR, CBC, CMP #### [place] [address] USAPlatelet mean volume (Bld) [Entitic vol]8.2 fLNormal 6.3-10.7The [facility] Physician GroupComment on above:Performed By: #### ESR, CBC, CMP #### [place] [address] USAPlatelets (Bld) [#/Vol]238 10*3/vROoqvuy191-819Yut [facility] Physician GroupComment on above:Performed By: #### ESR, CBC, CMP #### [place] [address] USARBC (Bld) [#/Vol]4.02 10*6/uLNormal3.60-5.00The Former[facility] Phys[facility] GroupComment on above:Performed By: #### ESR, CBC, CMP #### [place] [address] USAWBC (Bld) [#/Vol]10.9 10*3/uLNormal3.8-11.6The [facility] Phys[facility] GroupComment on above:Performed By: #### ESR, CBC, CMP #### [place] [address] USAComprehensive Metabolic Panelon 55-36-1789Uauseqn [Mass/Vol]4.4 g/dLNormal3.5-5.7The [facility] Phys[facility] GroupComment on above: Performed By: #### ESR, CBC, CMP #### [place] [id number] USAAlbumin/Globulin [Mass ratio]1.7 {ratio}NormalThe [facility]ly [facility] Physician GroupComment on above:Performed By: #### ESR, CBC, CMP #### [place] [address] USAALP [Catalytic activity/Vol]92 U/AYqpvdx97-571Wfv [facility] Physician GroupComment on above:Result Comment: PERFORMED BY: [place] [address] PATHOLOGIST PULLING MACHINE OPERATOR BERNARDA GARCIA M.D.Performed By: #### ESR, CBC, CMP #### [place] [address] USAALT [Catalytic activity/Vol]17 U/LNormal7-52The [facility] Physician GroupComment on above:Performed By: #### ESR, CBC, CMP #### [place] [address] USAAnion gap [Moles/Vol]13.1 mmol/LNormal6.0-15.0The [facility] Phys[facility] GroupComment on above:Performed By: #### ESR, CBC, CMP #### [place] [address] USAAST [Catalytic activity/Vol]17 U/KIbwilh82-13Sua [facility] Phys[facility] GroupComment on above:Performed By: #### ESR, CBC, CMP #### [place] [address] USABilirubin [Mass/Vol]0.5 mg/dLNormal0.3-1.0The [facility] Phys[facility] GroupComment on above:Performed By: #### ESR, CBC, CMP #### [place] [address] USACalcium [Mass/Vol]10.4 mg/dLHigh8.6-10.3The [facility] GroupComment on above:Performed By: #### ESR, CBC, CMP #### [place] [address] USAChloride [Moles/Vol]98 mmol/AOtromq57-511Qkk [facility] Physician GroupComment on above:Performed By: #### ESR, CBC, CMP #### [facility] [address] [place] [address] USACO2 [Moles/Vol]34.6 mmol/LHigh21.0-31.0The [facility] Physician GroupComment on above:Performed By: #### ESR, CBC, CMP #### [facility] [address] [place] [address] USACreatinine [Mass/Vol]1.46 mg/dLHigh0.60-1.20The [facility] Physician GroupComment on above:Performed By: #### ESR, CBC, CMP #### [facility] [address] [place] [address] USAEstimated GFR35.718 mL/MinNormalThe Formerly [facility] Physician [facility] HospitalComment on above:Performed By: #### ESR, CBC, CMP #### [facility] [address] [place] [address] USAGlobulin (S) [Mass/Vol]2.6 g/dLNormalThe [facility] Phys[facility] GroupComment on above:Performed By: #### ESR, CBC, CMP #### [facility] [address] [place] [address] USAGlucose [Mass/Vol]142 mg/tMTwdy43-135Usc [facility] Physician GroupComment on above:Result Comment: Random Glucose Reference Range is dependent on time and content of last meal. Glucose of more than 200 mg/dL in a nonstressed, ambulatory subject supports the diagnosis of Diabetes Mellitus. ADA recommended reference rangePerformed By: #### ESR, CBC, CMP #### [facility] [address] [place] [address] USAPotassium [Moles/Vol]3.7 mmol/LNormal3.5-5.1The [facility] Physician GroupComment on above:Performed By: #### ESR, CBC, CMP #### [facility] [address] [place] [address] USAProtein [Mass/Vol]7.0 g/dLNormal6.4-8.9The [facility] Physician GroupComment on above:Performed By: #### ESR, CBC, CMP #### [facility] [address] [place] [address] USASodium [Moles/Vol]142 mmol/WAwhvms081-430Tra [facility] Physician GroupComment on above:Performed By: #### ESR, CBC, CMP #### [facility] [address] [place] [address] USAUrea nitrogen [Mass/Vol]43 mg/dLHigh7-25The [facility] Physician GroupComment on above:Performed By: #### ESR, CBC, CMP #### [facility] [address] [place] [address] USACreatinine [Mass/volume] in Serum or PlasmaOrdered By: Christiano Mcdonnell on 90-88-0599Bamqfcbswo [Mass/Vol]Creatinine [Mass/volume] in Serum or PlasmaHigh0.60-1.20[facility] - WestEosinophils Auto (Bld) [#/Vol]Ordered By: Christiano Mcdonnell on 39-39-2890Ijububdzfqd (Bld) [#/Vol] Automated eosinophil count0.0-0.45[facility] Eosinophils/100 WBC Auto (Bld)Ordered By: Christiano Mcdonnell on 01-07-2025 Eosinophils/100 WBC (Bld)Automated eosinophil %.[facility] - WestErythrocyte Sedimentation Rateon 65-22-1809VVD (Bld) [Velocity]37 mm/hHigh 0-29The [facility] Physician GroupComment on above:Result Comment: PERFORMED BY: [place] [address] PATHOLOGIST PULLING MACHINE OPERATOR BERNARDA GARCIA M.D.Performed By: #### ESR, CBC, CMP #### [facility] [address] [place] [address] USAErythrocyte distribution width Auto (RBC) [Ratio]Ordered By: Christiano Mcdonnell on 30-75-0594Umcwnpebocw distribution width (RBC) [Ratio] Erythrocyte distribution width [Ratio] by Automated count11.9-15.3FNorwalk Memorial HospitalErythrocyte sedimentation rate by Photometric method Ordered By: Christiano Mcdonnell on 78-54-6721IYN Photometric method (Bld) [Velocity] Erythrocyte sedimentation rate by Photometric methodHigh0-29[facility] - WestGlobulin Calc (S) [Mass/Vol]Ordered By: Christiano Mcdonnell on 42-65-7026Agahiijj (S) [Mass/Vol]Serum globulin measurement by calculation (mass/volume)[facility] - WestGlucose [Mass/volume] in Serum or PlasmaOrdered By: Christiano Mcdonnell on 13-43-8633Fbgnowg [Mass/Vol]Glucose [Mass/volume] in Serum or NgpmggGgbw78-861XbptrsikgLake County Memorial Hospital - West Comment on above:ADA recommended reference rangeRandom Glucose Reference Range is dependent on time and content of last meal. Glucose of more than 200 mg/dL in a nonstressed, ambulatory subject supports the diagnosisof Diabetes Mellitus. Hematocrit Auto (Bld) [Volume fraction]Ordered By: Christiano Mcdonnell on 01-07-2025 Hematocrit (Bld) [Volume fraction]Hematocrit [Volume Fraction] of Blood by Automated count34.0-46.4FNorwalk Memorial HospitalHemoglobin [Mass/volume] in BloodOrdered By: Christiano Mcdonnell on 12-13-5388Tccnqrtidx (Bld) [Mass/Vol]Hemoglobin [Mass/volume] in Blood11.8-15.4FNorwalk Memorial HospitalLeukocytes [#/volume] corrected for nucleated erythrocytes in Blood by Automated counOrdered By: Christiano Mcdonnell on 95-80-6040VRI corrected for nucl RBC Auto (Bld) [#/Vol]Leukocytes [#/volume] corrected for nucleated erythrocytes in Blood by Automated coun3.8-11.6FNorwalk Memorial HospitalLymphocytes Auto (Bld) [#/Vol]Ordered By: Christiano Mcdonnell on 74-62-9610Zxydbisioqb (Bld) [#/Vol]Lymphocytes [#/volume] in Blood by Automated count1.00-4.8[facility] - WestLymphocytes/100 WBC Auto (Bld)Ordered By: Christiano Mcdonnell on 85-89-6568Tgpmbwjutbt/100 WBC (Bld)Lymphocytes/100 leukocytes in Blood by Automated count.[facility] - WestMCH Auto (RBC) [Entitic mass] Ordered By: Christiano Mcdonnell on 96-55-8229WVL (RBC) [Entitic mass]MCH [Entitic mass] by Automated count24.7-34.3FNorwalk Memorial HospitalMCHC Auto (RBC) [Mass/Vol]Ordered By: Christiano Mcdonnell on 53-82-2382QOCF (RBC) [Mass/Vol] MCHC [Mass/volume] by Automated count32.0-35.0[facility] MCV Auto (RBC) [Entitic vol]Ordered By: Christiano Mcdonnell on 07-72-7029KRF (RBC) [Entitic vol]MCV [Entitic volume] by Automated lqons71-793JsjfebnurLake County Memorial Hospital - WestMonocytes Auto (Bld) [#/Vol]Ordered By: Christiano Mcdonnell on 03-88-4303Atkibrott (Bld) [#/Vol]Automated blood monocyte count0.0-0.8[facility] - WestMonocytes/100 WBC Auto (Bld)Ordered By: Christiano Mcdonnell on 43-04-7169Ihalzzqws/100 WBC (Bld)Automated monocyte %.[facility] - WestNeutrophils Auto (Bld) [#/Vol]Ordered By: Christiano Mcdonnell on 00-96-5604Zdnxwckwyco (Bld) [#/Vol]Neutrophils [#/volume] in Blood by Automated countHigh1.8-7.7FNorwalk Memorial HospitalNeutrophils/100 WBC Auto (Bld) Ordered By: Christiano Mcdonnell on 60-38-1573Rwytkaeipaj/100 WBC (Bld)Automated neutrophil %.[facility] - WestNo Panel InformationOrdered By: Christiano Mcdonnell on 25-00-0313Zqlqeoblc GFR (CKD-EPI)35.718 mL/MinLake County Memorial Hospital - WestPharmacy Creatinine Clearance (ChemN/AFNorwalk Memorial HospitalNucleated erythrocytes [Presence] in Blood by Automated count Ordered By: Christiano Mcdonnell on 17-05-7939Gaqkciatr RBC Auto Ql (Bld)Nucleated erythrocytes [Presence] in Blood by Automated count0-0.5FNorwalk Memorial HospitalPlatelet mean volume Auto (Bld) [Entitic vol]Ordered By: Christiano Mcdonnell on 83-22-9334Dprhcdls mean volume (Bld) [Entitic vol]Platelet mean volume [Entitic volume] in Blood by Automated count6.3-10.7FNorwalk Memorial HospitalPlatelets Auto (Bld) [#/Vol]Ordered By: Christiano Mcdonnell on 01-07-2025 Platelets (Bld) [#/Vol]Platelets [#/volume] in Blood by Automated -468 [facility] - WestPotassium [Moles/volume] in Serum or Plasma Ordered By: Christiano Mcdonnell on 51-38-5199Uhvgchvci [Moles/Vol]Potassium [Moles/volume] in Serum or Plasma3.5-5.1FNorwalk Memorial HospitalProtein [Mass/volume] in Serum or PlasmaOrdered By: Christiano Mcdonnell on 35-68-9177Gqoqmts [Mass/Vol]Protein [Mass/volume] in Serum or Plasma6.4-8.9[facility] - WestRBC Auto (Bld) [#/Vol]Ordered By: Christiano Mcdonnell on 73-14-1957COV (Bld) [#/Vol]Erythrocytes [#/volume] in Blood by Automated count3.60-5.00 Lutheran Hospitalerum or plasma albumin/globulin mass ratio Ordered By: Christiano Mcdonnell on 04-25-5352Qbctbcd/Globulin [Mass ratio]Serum or plasma albumin/globulin mass ratioLutheran Hospitalerum or plasma anion gap determinationOrdered By: Christiano Mcdonnell on 01-97-2831Ivkrn gap [Moles/Vol]Serum or plasma anion gap determination6.0-15.0Lutheran Hospitalodium [Moles/volume] in Serum or PlasmaOrdered By: Christiano Mcdonnell on 03-67-5454Nzbati [Moles/Vol]Sodium [Moles/volume] in Serum or Mmaxmu421-477 [facility] - WestUrea nitrogen [Mass/volume] in Serum or Plasma Ordered By: Christiano Mcdonnell on 87-73-4966Bdyh nitrogen [Mass/Vol]Urea nitrogen [Mass/volume] in Serum or PlasmaHigh7-25[facility] - WestWBC Auto (Bld) [#/Vol]Ordered By: Christiano Mcdonnell on 68-12-6921KOI (Bld) [#/Vol] Leukocytes [#/volume] in Blood by Automated count3.8-11.6FNorwalk Memorial HospitalX-ray reportOrdered By: Butch Quinones on 04-48-2453Kbsvn report [facility] [place] [address] [place] [address] XRay Report Signed Patient: Harman Mcleod MR#: [id number] : 1940 Acct:[id number] Age/Sex: 84 / F ADM Date: 5 Loc: ICXD Room: Type: REG CLI Attending Dr: Christiano Mcdonnell MD Copies to: Christiano Mcdonnell MD~ Ordering Provider: Christiano Mcdonnell MD Date of Service: 01/07/25 XR/XR knee BI 2V: KNEE PAIN ([id number]) XR/XR hip BI w PEL1V: HIP PAIN ([id number]) XR/XR lumbar spine 2-3V*: LOW BACK PAIN LUMBAR SPINE - 2 views, bilateral hip series 2 views each, bilateral knee dmsjpg2gcmaj each CLINICAL HISTORY: Severe bilateral knee hip [...] Jr., D.O. 01/07/2025 4:46 PM Dictation Location: [place] [address] Transcribed By: [facility] 01/07/25 164 Dictated By: Butch Quinones Jr, DO 01/07/25 1644 Signed By: 01/07/25 164 [facility] - WestXR knee BI 2Von 95-40-5417LN knee BI [address] [facility] [place] [address] [place] [address] XRay Report Signed Patient: Harman Mcleod MR#: [id number] : 1940 Acct:[id number] Age/Sex: 84 / F ADM Date: 01/07/25 Loc: ICXD Room: Type: [facility] CLI Attending Dr: Chirstiano Mcdonnell MD Copies to: Christiano Mcdonnell MD Ordering Provider: Christiano Mcdonnell MD Date of Service: 01/07/25 XR/XR knee BI 2V: KNEE PAIN ([id number]) XR/XR hip BI w PEL1V: HIP PAIN ([id number]) XR/XR lumbar spine 2-3V*: LOW BACK PAIN [...] Jr., D.OMedardo 01/07/2025 4:46 PM Dictation Location: [place] [address] Transcribed By: [facility] 01/07/251645 Dictated By: Butch Quinones Jr, DO 01/07/25 164 Signed By: 01/07/25 1646[facility] Physician GroupAlanine aminotransferase [Enzymatic activity/volume] in Serum or PlasmaOrdered By: Christiano Mcdonnell on 56-67-4085UMH [Catalytic activity/Vol]Alanine aminotransferase [Enzymatic activity/volume] in Serum or Plasma7-52[facility] - WestAlbumin [Mass/volume] in Serum or Plasma by Bromocresol green (BCG) dye binding metho Ordered By: Christiano Mcdonnell on 24-44-5856Dbvsqhq BCG dye [Mass/Vol]Albumin [Mass/volume] in Serum or Plasma by Bromocresol green (BCG) dye binding metho 3.5-5.7FNorwalk Memorial HospitalAlkaline phosphatase [Enzymatic activity/volume] in Serum or PlasmaOrdered By: Christiano Mcdonnell on 69-45-7910MSD [Catalytic activity/Vol]Alkaline phosphatase [Enzymatic activity/volume] in Serum or Kmqsbm90-170HjbqzcopwLake County Memorial Hospital - WestAspartate aminotransferase [Enzymatic activity/volume] in Serum or PlasmaOrdered By: Christiano Mcdonnell on 95-23-3777FGD [Catalytic activity/Vol]Aspartate aminotransferase [Enzymatic activity/volume] in Serum or Fyttla28-82NdqqucuzaLake County Memorial Hospital - West Basophils Auto (Bld) [#/Vol]Ordered By: Christiano Mcdonnell on 17-83-4803Fwhmkxnnp (Bld) [#/Vol]Automated basophil count0.0-0.2FNorwalk Memorial Hospital Basophils/100 WBC Auto (Bld)Ordered By: Christiano Mcdonnell on 12-10-2024 Basophils/100 WBC (Bld)Automated basophil %.[facility] Bilirubin.total [Mass/volume] in Serum or PlasmaOrdered By: Christiano Mcdonnell on 20-80-2512Khouncuxh [Mass/Vol]Bilirubin.total [Mass/volume] in Serum or Plasma 0.3-1.0[facility] - WestCalcium [Mass/volume] in Serum or Plasma Ordered By: Christiano Mcdonnell on 91-23-5851Hbznffx [Mass/Vol]Calcium [Mass/volume] in Serum or Plasma8.6-10.3FNorwalk Memorial HospitalCarbon dioxide, total [Moles/volume] in Serum or PlasmaOrdered By: Christiano Mcdonnell on 71-00-6314UC0 [Moles/Vol]Carbon dioxide, total [Moles/volume] in Serum or BgysxvZxcp57.0-31.0 [facility] - WestChloride [Moles/volume] in Serum or Plasma Ordered By: Christiano Mcdonnell on 09-29-3966Mlmhexqy [Moles/Vol]Chloride [Moles/volume] in Serum or Yhovdv25-583Az[address] [place], [place] [address]Complete Blood Count Auto Diffon 07-64-5497Ozksykwvr (Bld) [#/Vol]0.0 10*3/uLNormal 0.0-0.2The [facility] Physician GroupComment on above:Performed By: #### ESR, CBC, CMP #### [facility] [address] [place] [address] USABasophils/100 WBC (Bld)0.4 %Normal.The [facility] Physician GroupComment on above:Performed By: #### ESR, CBC, CMP #### [place] [address] USAEosinophils (Bld) [#/Vol]0.3 10*3/uLNormal0.0-0.45The [facility] Physician GroupComment on above:Performed By: #### ESR, CBC, CMP #### [facility] [address] [place] [address] USAEosinophils/100 WBC (Bld)3.2 %Normal.The [facility] Physician GroupComment on above:Performed By: #### ESR, CBC, CMP #### [place] [address] USAErythrocyte distribution width (RBC) [Ratio]14.9 %Normal 11.9-15.3The [facility] Physician GroupComment on above:Performed By: #### ESR, CBC, CMP #### [facility] [address] [place] [address] USAHematocrit (Bld) [Volume fraction]31.9 %Low34.0-46.4The [facility] Physician GroupComment on above:Performed By: #### ESR, CBC, CMP #### [place] [address] USAHemoglobin (Bld) [Mass/Vol]10.7 g/dLLow11.8-15.4The [facility] Physician GroupComment on above:Performed By: #### ESR, CBC, CMP #### [place] [address] USALymphocytes (Bld) [#/Vol]2.7 10*3/uLNormal1.00-4.8The [facility] Physician GroupComment on above:Performed By: #### ESR, CBC, CMP #### [place] [address] USALymphocytes/100 WBC (Bld)32.6 %Normal.The [facility] Physician GroupComment on above:Performed By: #### ESR, CBC, CMP #### [place] [address] USAMCH (RBC) [Entitic mass]30.9 cfXcbcuu43.7-34.3The [facility] Physician GroupComment on above:Performed By: #### ESR, CBC, CMP #### [place] [address] USAMCV (RBC) [Entitic vol]92.4 zRNnvxfu23-777Isk [facility] Physician GroupComment on above:Performed By: #### ESR, CBC, CMP #### [place] [address] USAMean Corpuscular HGB Conc33.5 g/xHPivjov55.0-35.0The [facility] Physician GroupComment on above:Performed By: #### ESR, CBC, CMP #### [place] [address] USAMonocytes (Bld) [#/Vol]0.7 10*3/uLNormal0.0-0.8The [facility] Physician GroupComment on above:Performed By: #### ESR, CBC, CMP #### [place] [address] USAMonocytes/100 WBC (Bld)8.9 %Normal.The [facility] Physician GroupComment on above:Performed By: #### ESR, CBC, CMP #### [place] [address] USANeutrophils (Bld) [#/Vol]4.6 10*3/uLNormal1.8-7.7The [facility] Physician GroupComment on above:Performed By: #### ESR, CBC, CMP #### [place] [address] USANeutrophils/100 WBC (Bld)54.9 %Normal.The [facility] Physician GroupComment on above:Performed By: #### ESR, CBC, CMP #### [facility] [address] [place] [address] USANRBC%0.3 /100{WBC}Normal0-0.5The [facility] Comment on above:Performed By: #### ESR, CBC, CMP #### [place] [address] USAPlatelet mean volume (Bld) [Entitic vol]8.5 fLNormal 6.3-10.7The [facility] Physician GroupComment on above:Performed By: #### ESR, CBC, CMP #### [place] [address] USAPlatelets (Bld) [#/Vol]244 10*3/jUNefabx870-140Owz [facility] Physician GroupComment on above:Performed By: #### ESR, CBC, CMP #### [place] [address] USARBC (Bld) [#/Vol]3.45 10*6/uLLow3.60-5.00The [facility] Physician GroupComment on above:Performed By: #### ESR, CBC, CMP #### [place] [address] USAWBC (Bld) [#/Vol]8.3 10*3/uLNormal3.8-11.6The [facility] Physician GroupComment on above:Performed By: #### ESR, CBC, CMP #### [place] [address] USAComprehensive Metabolic Panelon 28-28-4559Xawkevt [Mass/Vol]4.0 g/dLNormal3.5-5.7The [facility] Physician GroupComment on above: Performed By: #### ESR, CBC, CMP #### [place] [address] USAAlbumin/Globulin [Mass ratio]1.6 {ratio}NormalThe Formerly [facility] Physician GroupComment on above:Performed By: #### ESR, CBC, CMP #### [place] [address] USAALP [Catalytic activity/Vol]92 U/IHpzorj78-466Xjt [facility] Physician GroupComment on above:Result Comment: PERFORMED BY: [place] [address] PATHOLOGIST PULLING MACHINE OPERATOR BERNARDA GARCIA M.D.Performed By: #### ESR, CBC, CMP #### [place] [address] USAALT [Catalytic activity/Vol]12 U/LNormal7-52The [facility] Physician GroupComment on above:Performed By: #### ESR, CBC, CMP #### [place] [address] USAAnion gap [Moles/Vol]14.0 mmol/LNormal6.0-15.0The [facility] Physician GroupComment on above:Performed By: #### ESR, CBC, CMP #### [place] [address] USAAST [Catalytic activity/Vol]16 U/ZVzwtag51-55Bdl [facility] Physician GroupComment on above:Performed By: #### ESR, CBC, CMP #### [place] [address] USABilirubin [Mass/Vol]0.4 mg/dLNormal0.3-1.0The [facility] Physician GroupComment on above:Performed By: #### ESR, CBC, CMP #### [place] [address] USACalcium [Mass/Vol]9.8 mg/dLNormal8.6-10.3The [facility] Physician GroupComment on above:Performed By: #### ESR, CBC, CMP #### [address] [place] [address] USAChloride [Moles/Vol]101 mmol/GGcdkgg31-870Nki [facility] Physician GroupComment on above:Performed By: #### ESR, CBC, CMP #### [facility] [address] [place] [address] USACO2 [Moles/Vol]32.6 mmol/LHigh21.0-31.0The [facility] Physician GroupComment on above:Performed By: #### ESR, CBC, CMP #### [facility] [address] [place] [address] USACreatinine [Mass/Vol]1.26 mg/dLHigh0.60-1.20The [facility] Physician GroupComment on above:Performed By: #### ESR, CBC, CMP #### [facility] [address] [place] [address] USAEstimated GFR42.625 mL/MinNormalThe [facility] Physician [facility] Stennis Memorial HospitalComment on above:Performed By: #### ESR, CBC, CMP #### [facility] [address] [place] [address] USAGlobulin (S) [Mass/Vol]2.5 g/dLNormalThe [facility] Physician GroupComment on above:Performed By: #### ESR, CBC, CMP #### [facility] [address] [place] [address] USAGlucose [Mass/Vol]179 mg/gQZkoi22-270Emz [facility] Physician GroupComment on above:Result Comment: Random Glucose Reference Range is dependent on time and content of last meal. Glucose of more than 200 mg/dL in a nonstressed, ambulatory subject supports the diagnosis of Diabetes Mellitus. ADA recommended reference rangePerformed By: #### ESR, CBC, CMP #### [facility] [address] [place] [address] USAPotassium [Moles/Vol]3.6 mmol/LNormal3.5-5.1The [facility] Physician GroupComment on above:Performed By: #### ESR, CBC, CMP #### [facility] [address] [place] [address] USAProtein [Mass/Vol]6.5 g/dLNormal6.4-8.9The [facility] Physician GroupComment on above:Performed By: #### ESR, CBC, CMP #### [facility] [address] [place] [address] USASodium [Moles/Vol]144 mmol/NJfqqbt081-725Cly [facility] Physician GroupComment on above:Performed By: #### ESR, CBC, CMP #### [facility] [address] [place] [address] USAUrea nitrogen [Mass/Vol]28 mg/dLHigh7-25The [facility] Physician GroupComment on above:Performed By: #### ESR, CBC, CMP #### [place] [address] USACreatinine [Mass/volume] in Serum or PlasmaOrdered By: Christiano Mcdonnell on 26-59-1142Uuobazguof [Mass/Vol]Creatinine [Mass/volume] in Serum or PlasmaHigh0.60-1.20[facility] - WestEosinophils Auto (Bld) [#/Vol]Ordered By: Christiano Mcdonnell on 55-59-9050Aewllmxkbjo (Bld) [#/Vol] Automated eosinophil count0.0-0.45[facility] Eosinophils/100 WBC Auto (Bld)Ordered By: Christiano Mcdonnell on 12-10-2024 Eosinophils/100 WBC (Bld)Automated eosinophil %.[facility] - WestErythrocyte Sedimentation Rateon 75-16-6005OHN (Bld) [Velocity]40 mm/hHigh 0-29The [facility] Physician GroupComment on above:Result Comment: PERFORMED BY: [place] [address] PATHOLOGIST PULLING MACHINE OPERATOR BERNARDA GARCIA M.D.Performed By: #### ESR, CBC, CMP #### [place] [address] USAErythrocyte distribution width Auto (RBC) [Ratio]Ordered By: Christiano Mcdonnell on 15-29-7359Ighnjtyodfo distribution width (RBC) [Ratio] Erythrocyte distribution width [Ratio] by Automated count11.9-15.3FNorwalk Memorial HospitalErythrocyte sedimentation rate by Photometric method Ordered By: Christiano Mcdonnell on 16-53-1285EJI Photometric method (Bld) [Velocity] Erythrocyte sedimentation rate by Photometric methodHigh0-29[facility] - WestGlobulin Calc (S) [Mass/Vol]Ordered By: Christiano Mcdonnell on 12-12-1681Ickqrtlv (S) [Mass/Vol]Serum globulin measurement by calculation (mass/volume)[facility] - WestGlucose [Mass/volume] in Serum or PlasmaOrdered By: Christiano Mcdonnell on 03-72-6040Lcagkjf [Mass/Vol]Glucose [Mass/volume] in Serum or VutidcZoyg02-441KzzilzolmLake County Memorial Hospital - West Comment on above:ADA recommended reference rangeRandom Glucose Reference Range is dependent on time and content of last meal. Glucose of more than 200 mg/dL in a nonstressed, ambulatory subject supports the diagnosisof Diabetes Mellitus. Hematocrit Auto (Bld) [Volume fraction]Ordered By: Christiano Mcdonnell on 12-10-2024 Hematocrit (Bld) [Volume fraction]Hematocrit [Volume Fraction] of Blood by Automated pawuaWnu28.0-46.4FNorwalk Memorial HospitalHemoglobin [Mass/volume] in BloodOrdered By: Christiano Mcdonnell on 84-58-5239Ucjefzkxgc (Bld) [Mass/Vol]Hemoglobin [Mass/volume] in ZyfwrYkh05.8-15.4FNorwalk Memorial HospitalLeukocytes [#/volume] corrected for nucleated erythrocytes in Blood by Automated counOrdered By: Christiano Mcdonnell on 42-11-6759NZU corrected for nucl RBC Auto (Bld) [#/Vol]Leukocytes [#/volume] corrected for nucleated erythrocytes in Blood by Automated coun3.8-11.6FNorwalk Memorial Hospital Lymphocytes Auto (Bld) [#/Vol]Ordered By: Christiano Mcdonnell on 12-10-2024 Lymphocytes (Bld) [#/Vol]Lymphocytes [#/volume] in Blood by Automated count 1.00-4.8[facility] - WestLymphocytes/100 WBC Auto (Bld)Ordered By: Christiano Mcdonnell on 64-40-1516Exdzickxxrb/100 WBC (Bld)Lymphocytes/100 leukocytes in Blood by Automated count.[facility] HospitalH Auto (RBC) [Entitic mass]Ordered By: Christiano Mcdonnell on 13-45-6654RHY (RBC) [Entitic mass]MCH [Entitic mass] by Automated count24.7-34.3FNorwalk Memorial HospitalMCHC Auto (RBC) [Mass/Vol]Ordered By: Christiano Mcdonnell on 77-07-7912LUUK (RBC) [Mass/Vol]MCHC [Mass/volume] by Automated count32.0-35.0[facility] - WestMCV Auto (RBC) [Entitic vol]Ordered By: Christiano Mcdonnell on 56-62-6095PBB (RBC) [Entitic vol]MCV [Entitic volume] by Automated -943 [facility] - WestMonocytes Auto (Bld) [#/Vol]Ordered By: Christiano Mcdonnell on 58-71-8877Bhzpudvhu (Bld) [#/Vol]Automated blood monocyte count 0.0-0.8[facility] - WestMonocytes/100 WBC Auto (Bld)Ordered By: Christiano Mcdonnell on 69-12-7743Iamspjrjr/100 WBC (Bld)Automated monocyte %. [facility] - WestNeutrophils Auto (Bld) [#/Vol]Ordered By: Christiano Mcdonnell on 94-72-5462Wwxsuvojbsj (Bld) [#/Vol]Neutrophils [#/volume] in Blood by Automated count1.8-7.7FNorwalk Memorial HospitalNeutrophils/100 WBC Auto (Bld)Ordered By: Christiano Mcdonnell on 45-52-0239Hgqllxgchvj/100 WBC (Bld) Automated neutrophil %.[facility] - WestNo Panel Information Ordered By: Christiano Mcdonnell on 16-93-9494Bnbilxpry GFR (CKD-EPI)42.625 mL/Min [facility] WestPharmacy Creatinine Clearance (ChemN/AFNorwalk Memorial HospitalNucleated erythrocytes [Presence] in Blood by Automated countOrdered By: Christiano Mcdonnell on 52-20-8409Hqqsxlpni RBC Auto Ql (Bld) Nucleated erythrocytes [Presence] in Blood by Automated count0-0.5FNorwalk Memorial HospitalPlatelet mean volume Auto (Bld) [Entitic vol]Ordered By: Christiano Mcdonnell on 68-02-2063Nucrhixn mean volume (Bld) [Entitic vol]Platelet mean volume [Entitic volume] in Blood by Automated count6.3-10.7FNorwalk Memorial HospitalPlatelets Auto (Bld) [#/Vol]Ordered By: Christiano Mcdonnell on 69-40-5712Hpbxlgwzd (Bld) [#/Vol]Platelets [#/volume] in Blood by Automated pobyk723-955SmczmxppyLake County Memorial Hospital - WestPotassium [Moles/volume] in Serum or PlasmaOrdered By: Christiano Mcdonnell on 29-61-4059Rpibajnnu [Moles/Vol]Potassium [Moles/volume] in Serum or Plasma3.5-5.1FNorwalk Memorial HospitalProtein [Mass/volume] in Serum or PlasmaOrdered By: Christiano Mcdonnell on 04-35-7681Zdzsujo [Mass/Vol]Protein [Mass/volume] in Serum or Plasma6.4-8.9[facility] - WestRBC Auto (Bld) [#/Vol]Ordered By: Christiano Mcdonnell on 21-36-5437TBT (Bld) [#/Vol]Erythrocytes [#/volume] in Blood by Automated countLow3.60-5.00 Luther[facility] Hospitalerum or plasma albumin/globulin mass ratio Ordered By: Christiano Mcdonnell on 89-15-7222Dtwfrgu/Globulin [Mass ratio]Serum or plasma albumin/globulin mass ratioLutheran Hospitalerum or plasma anion gap determinationOrdered By: Christiano Mcdonnell on 81-79-4205Saohk gap [Moles/Vol]Serum or plasma anion gap determination6.0-15.0Lutheran Hospitalodium [Moles/volume] in Serum or PlasmaOrdered By: Christiano Mcdonnell on 50-16-8495Qwezew [Moles/Vol]Sodium [Moles/volume] in Serum or Xrdddw010-223 [facility] - WestUrea nitrogen [Mass/volume] in Serum or Plasma Ordered By: Christiano Mcdonnell on 00-72-3542Chyw nitrogen [Mass/Vol]Urea nitrogen [Mass/volume] in Serum or PlasmaHigh7-25[facility] - WestWBC Auto (Bld) [#/Vol]Ordered By: Christiano Mcdonnell on 86-44-8098WRX (Bld) [#/Vol] Leukocytes [#/volume] in Blood by Automated count3.8-11.6FNorwalk Memorial HospitalOffice Visiton 11-06-2842Asdffx-up [id number] Harman Mcleod 1940 F Date Provider Department Center 11/05/2024 [facility] Family History Problem Relation Age of Onset Stroke Mother Coronary artery disease Father Heart attack Father Family Status - Relation Status Age at Mother Father Level of Service:[address] [place] OFFICE/OUTPATIENT [facility]ISHED [facility] TroyANA Antinuclear Antibodieson 10-29-2024 Antinuclear Abs, IFANegativeNormal.The [facility] Physician GroupComment on above:Result Comment: Negative <1:80 Borderline 1:80 Positive >1:80 ICAP nomenclature: AC-0 For more information about Hep-2 cell patterns use ANApatterns.org, the official website for the International Consensus on Antinuclear Antibody (TYLER) Patterns (ICAP). Performed at: CB - [facility] [place] [id number] Plant Worker: Esteban Martinez PhD, Phone: [phone] PERFORMED BY: [place] [address] PATHOLOGIST PULLING MACHINE OPERATOR BERNARDA GARCIA M.D.Performed By: #### CBC, CRP, CMP, URIC, ESR #### [address] #### [place] #### [facility] ,Alanine aminotransferase [Enzymatic activity/volume] in Serum or PlasmaOrdered By: Christiano Mcdonnell on 16-52-9955GSA [Catalytic activity/Vol]Alanine aminotransferase [Enzymatic activity/volume] in Serum or Plasma[address] [place], [place] [address]Albumin [Mass/volume] in Serum or Plasma by Bromocresol green (BCG) dye binding methoOrdered By: Christiano Mcdonnell on 70-35-9746Uispctn BCG dye [Mass/Vol]Albumin [Mass/volume] in Serum or Plasma by Bromocresol green (BCG) dye binding metho3.5-5.7FNorwalk Memorial HospitalAlkaline phosphatase [Enzymatic activity/volume] in Serum or PlasmaOrdered By: Christiano Mcdonnell on 72-32-8895KKX [Catalytic activity/Vol]Alkaline phosphatase [Enzymatic activity/volume] in Serum or Oxwaeu24-014TtrqqahyhLake County Memorial Hospital - West Aspartate aminotransferase [Enzymatic activity/volume] in Serum or PlasmaOrdered By: Christiano Mcdonnell on 58-03-7239LUA [Catalytic activity/Vol]Aspartate aminotransferase [Enzymatic activity/volume] in Serum or Ltdcbh15-92AkabjnxalLake County Memorial Hospital - WestBasophils Auto (Bld) [#/Vol]Ordered By: Christiano Mcdonnell on 13-54-5842Eiqvobspx (Bld) [#/Vol]Automated basophil count0.0-0.2FNorwalk Memorial HospitalBasophils/100 WBC Auto (Bld)Ordered By: Christiano Mcdonnell on 50-63-3560Tjumardgl/100 WBC (Bld)Automated basophil %.[facility] - WestBilirubin.total [Mass/volume] in Serum or PlasmaOrdered By: Christiano Mcdonnell on 23-13-2468Kmhiskfvq [Mass/Vol]Bilirubin.total [Mass/volume] in Serum or Plasma0.3-1.0[facility] - WestC reactive protein [Mass/volume] in Serum or PlasmaOrdered By: Christiano Mcdonnell on 09-87-7900AUM [Mass/Vol]C reactive protein [Mass/volume] in Serum or PlasmaHigh0.0-0.5 [facility] - WestC-Reactive Proteinon 20-71-0518L-Reactive Protein4.6 mg/dLHigh0.0-0.5The [facility] Physician GroupComment on above:Result Comment: PERFORMED BY: [place] [address] PATHOLOGIST PULLING MACHINE OPERATOR BERNARDA GARCIA M.D.Performed By: #### CBC, CRP, CMP, URIC, ESR #### [place] [address] [place] #### [place] #### [facility] ,Calcium [Mass/volume] in Serum or PlasmaOrdered By: Christiano Mcdonnell on 46-66-9257Ekuebcp [Mass/Vol]Calcium [Mass/volume] in Serum or Plasma8.6-10.3 [facility] - WestCarbon dioxide, total [Moles/volume] in Serum or PlasmaOrdered By: Christiano Martinrow on 21-07-9853VX5 [Moles/Vol]Carbon dioxide, total [Moles/volume] in Serum or Ldltqv91.0-31.0[facility] - WestChloride [Moles/volume] in Serum or PlasmaOrdered By: Christianoanali Mcdonnell on 26-17-4821Krcjzvwd [Moles/Vol]Chloride [Moles/volume] in Serum or Qdkndv11-897 [facility] WestComplete Blood Count Auto Diffon 10-29-2024 Basophils (Bld) [#/Vol]0.1 10*3/uLNormal0.0-0.2The [facility] Comment on above:Performed By: #### CBC, CRP, CMP, URIC, ESR #### [place] [address] [place] #### TYLER #### [facility] ,Basophils/100 WBC (Bld)0.5 %Normal.The [facility] GroupComment on above:Performed By: #### CBC, CRP, CMP, URIC, ESR #### [place] [address] [place] #### TYLER #### [facility] ,Eosinophils (Bld) [#/Vol]0.1 10*3/uLNormal0.0-0.45The [facility] Comment on above:Performed By: #### CBC, CRP, CMP, URIC, ESR #### [place] [address] [place] #### TYLER #### [facility] ,Eosinophils/100 WBC (Bld)1.3 %Normal.The [facility] GroupComment on above:Performed By: #### CBC, CRP, CMP, URIC, ESR #### [place] [address] [place] #### TYLER #### [facility] ,Erythrocyte distribution width (RBC) [Ratio]15.5 %High11.9-15.3The [facility] GroupComment on above:Performed By: #### CBC, CRP, CMP, URIC, ESR #### [address] #### TYLER #### [facility] ,Hematocrit (Bld) [Volume fraction]32.0 %Low34.0-46.4The [facility] GroupComment on above:Performed By: #### CBC, CRP, CMP, URIC, ESR #### [address] #### TYLER #### [facility] ,Hemoglobin (Bld) [Mass/Vol]10.5 g/dLLow11.8-15.4The [facility] Comment on above:Performed By: #### CBC, CRP, CMP, URIC, ESR #### [address] #### TYLER #### [facility] ,Lymphocytes (Bld) [#/Vol]2.5 10*3/uLNormal1.00-4.8The [facility] Comment on above:Performed By: #### CBC, CRP, CMP, URIC, ESR #### [address] #### TYLER #### [facility] ,Lymphocytes/100 WBC (Bld)22.2 %Normal.The [facility] GroupComment on above:Performed By: #### CBC, CRP, CMP, URIC, ESR #### [place] [address] [place] #### TYLER #### [facility] ,MCH (RBC) [Entitic mass]30.1 xnCcstpa95.7-34.3The [facility] Comment on above:Performed By: #### CBC, CRP, CMP, URIC, ESR #### [place] [address] [place] #### TYLER #### [facility] ,MCV (RBC) [Entitic vol]91.7 iYLzybbi79-919Nww [facility] GroupComment on above:Performed By: #### CBC, CRP, CMP, URIC, ESR #### [place] [address] [place] #### TYLER #### [facility] ,Mean Corpuscular HGB Conc32.8 g/wILbmtnj61.0-35.0The [facility] Comment on above:Performed By: #### CBC, CRP, CMP, URIC, ESR #### [address] #### TYLER #### [facility] ,Monocytes (Bld) [#/Vol]0.8 10*3/uLNormal0.0-0.8The [facility] Comment on above:Performed By: #### CBC, CRP, CMP, URIC, ESR #### [place] [address] [place] #### TYLER #### [facility] ,Monocytes/100 WBC (Bld)7.4 %Normal.The [facility] GroupComment on above:Performed By: #### CBC, CRP, CMP, URIC, ESR #### [place] [address] [place] #### TYLER #### [facility] ,Neutrophils (Bld) [#/Vol]7.6 10*3/uLNormal1.8-7.7The [facility] Comment on above:Performed By: #### CBC, CRP, CMP, URIC, ESR #### [place] [address] [place] #### TYLER #### [facility] ,Neutrophils/100 WBC (Bld)68.6 %Normal.The [facility] GroupComment on above:Performed By: #### CBC, CRP, CMP, URIC, ESR #### [facility] [address] [place] [address] #### TYLER #### [facility] ,NRBC%0.1 /100{WBC}Normal0-0.5The [facility] GroupComment on above: Performed By: #### CBC, CRP, CMP, URIC, ESR #### [facility] [address] [place] [address] [place] #### TYLER #### [facility] ,Platelet mean volume (Bld) [Entitic vol]7.9 fLNormal6.3-10.7The [facility] GroupComment on above:Performed By: #### CBC, CRP, CMP, URIC, ESR #### [address] #### TYLER #### [facility] ,Platelets (Bld) [#/Vol]280 10*3/hYPgcwfe881-184Lso [facility] Comment on above:Performed By: #### CBC, CRP, CMP, URIC, ESR #### [facility] [address] [place] [address] #### TYLER #### [facility] ,RBC (Bld) [#/Vol]3.49 10*6/uLLow3.60-5.00The [facility] GroupComment on above:Performed By: #### CBC, CRP, CMP, URIC, ESR #### [place] [address] [place] #### TYLER #### [facility] ,WBC (Bld) [#/Vol]11.1 10*3/uLNormal3.8-11.6The [facility] GroupComment on above:Performed By: #### CBC, CRP, CMP, URIC, ESR #### [facility] [address] [place] [address] [place] #### TYLER #### [facility] ,Comprehensive Metabolic Panelon 53-25-8494Jrflisg [Mass/Vol]3.7 g/dLNormal 3.5-5.7The [facility] GroupComment on above:Performed By: #### CBC, CRP, CMP, URIC, ESR #### [address] #### TYLER #### [facility] ,Albumin/Globulin [Mass ratio]1.4 {ratio}NormalThe [facility] Comment on above:Performed By: #### CBC, CRP, CMP, URIC, ESR #### [address] #### TYLER #### [facility] ,ALP [Catalytic activity/Vol]78 U/VQnhocg85-786Npw [facility] Comment on above:Performed By: #### CBC, CRP, CMP, URIC, ESR #### [address] #### TYLER #### [facility] ,ALT [Catalytic activity/Vol]11 U/LNormal7-52The [facility] Comment on above:Performed By: #### CBC, CRP, CMP, URIC, ESR #### [address] #### TYLER #### [facility] ,Anion gap [Moles/Vol]13.8 mmol/LNormal6.0-15.0The [facility] Comment on above:Performed By: #### CBC, CRP, CMP, URIC, ESR #### [place] [address] [place] #### TYLER #### [facility] ,AST [Catalytic activity/Vol]13 U/WJpgypq01-83Bdl [facility] Comment on above:Performed By: #### CBC, CRP, CMP, URIC, ESR #### [facility] [address] [place] [address] [place] #### TYLER #### [facility] ,Bilirubin [Mass/Vol]0.4 mg/dLNormal0.3-1.0The [facility] GroupComment on above:Performed By: #### CBC, CRP, CMP, URIC, ESR #### [facility] [address] [place] [address] #### TYLER #### [facility] ,Calcium [Mass/Vol]9.3 mg/dLNormal8.6-10.3The [facility] GroupComment on above:Performed By: #### CBC, CRP, CMP, URIC, ESR #### [facility] [address] [place] [address] #### TYLER #### [facility] ,Chloride [Moles/Vol]100 mmol/QCcwncm56-678Wvd [facility] GroupComment on above:Performed By: #### CBC, CRP, CMP, URIC, ESR #### [facility] [address] [place] [address] #### TYLER #### [facility] ,CO2 [Moles/Vol]30.5 mmol/KClrvik25.0-31.0The [facility] GroupComment on above:Performed By: #### CBC, CRP, CMP, URIC, ESR #### [address] #### TYLER #### [facility] ,Creatinine [Mass/Vol]1.29 mg/dLHigh0.60-1.20The [facility] Comment on above:Performed By: #### CBC, CRP, CMP, URIC, ESR #### [facility] [address] [place] [address] [place] #### TYLER #### [facility] ,Estimated GFR41.438 mL/MinNormalThe [facility] GroupComment on above: Performed By: #### CBC, CRP, CMP, URIC, ESR #### [facility] [address] [place] [address] [place] #### TYLER #### [facility] ,Globulin (S) [Mass/Vol]2.7 g/dLNormGrant Hospitale [facility] GroupComment on above:Performed By: #### CBC, CRP, CMP, URIC, ESR #### [place] [address] [place] #### TYLER #### [facility] ,Glucose [Mass/Vol]134 mg/cDIbcs64-278Hel [facility] Phys[facility] GroupComment on above:Result Comment: Random Glucose Reference Range is dependent on time and content of last meal. Glucose of more than 200 mg/dL in a nonstressed, ambulatory subject supports the diagnosis of Diabetes Mellitus. ADA recommended reference rangePerformed By: #### CBC, CRP, CMP, URIC, ESR #### [address] #### TYLER #### [facility] ,Potassium [Moles/Vol]3.3 mmol/LLow3.5-5.1The [facility] GroupComment on above:Performed By: #### CBC, CRP, CMP, URIC, ESR #### [place] [address] [place] #### TYLER #### [facility] ,Protein [Mass/Vol]6.4 g/dLNormal6.4-8.9The [facility] GroupComment on above:Performed By: #### CBC, CRP, CMP, URIC, ESR #### [place] [address] [place] #### TYLER #### [facility] ,Sodium [Moles/Vol]141 mmol/RSdfppd096-220Mch [facility] GroupComment on above:Performed By: #### CBC, CRP, CMP, URIC, ESR #### [place] [address] [place] #### TYLER #### [facility] ,Urea nitrogen [Mass/Vol]21 mg/dLNormal7-25The [facility] GroupComment on above:Performed By: #### CBC, CRP, CMP, URIC, ESR #### [facility] [address] [place] [address] #### TYLER #### [facility] ,Creatinine [Mass/volume] in Serum or PlasmaOrdered By: Christiano Mcdonnell on 03-15-8767Synkagbetw [Mass/Vol]Creatinine [Mass/volume] in Serum or PlasmaHigh 0.60-1.20[facility] WestEosinophils Auto (Bld) [#/Vol]Ordered By: Christiano Mcdonnell on 22-04-4907Ledtzutrjaj (Bld) [#/Vol]Automated eosinophil count0.0-0.45[facility] WestEosinophils/100 WBC Auto (Bld) Ordered By: Christiano Mcdonnell on 10-29-5963Rhdftjdxpik/100 WBC (Bld)Automated eosinophil %.[facility] - WestErythrocyte Sedimentation Rateon 20-12-0177LWU (Bld) [Velocity]78 mm/hHigh0-29The [facility] Comment on above:Result Comment: PERFORMED BY: [place] [address] PATHOLOGIST PULLING MACHINE OPERATOR BERNARDA GARCIA M.D.Performed By: #### CBC, CRP, CMP, URIC, ESR #### [facility] [address] [place] [address] #### TYLER #### [facility] ,Erythrocyte distribution width Auto (RBC) [Ratio]Ordered By: Christiano Mcdonnell on 81-46-3724Bxebtbrnqvo distribution width (RBC) [Ratio]Erythrocyte distribution width [Ratio] by Automated sdimmIedv65.9-15.3FNorwalk Memorial Hospital Erythrocyte sedimentation rate by Photometric methodOrdered By: Christiano Mcdonnell on 95-58-4769HLH Photometric method (Bld) [Velocity]Erythrocyte sedimentation rate by Photometric methodHigh0-29[facility] - WestGlobulin Calc (S) [Mass/Vol]Ordered By: Christiano Mcdonnell on 99-36-9701Pqalmemj (S) [Mass/Vol] Serum globulin measurement by calculation (mass/volume)[facility] WestGlucose [Mass/volume] in Serum or PlasmaOrdered By: Christiano Mcdonnell on 06-37-4998Sdltisr [Mass/Vol]Glucose [Mass/volume] in Serum or PlasmaHigh 70-100[facility] - WestComment on above:ADA recommended reference rangeRandom Glucose Reference Range is dependent on time and content of last meal. Glucose of more than 200 mg/dL in a nonstressed, ambulatory subject supports the diagnosisof Diabetes Mellitus.Hematocrit Auto (Bld) [Volume fraction]Ordered By: Christiano Mcdonnell on 13-94-9748Dpqtumedcr (Bld) [Volume fraction]Hematocrit [Volume Fraction] of Blood by Automated wagxwCnt75.0-46.4 [facility] WestHemoglobin [Mass/volume] in BloodOrdered By: Christiano Mcdonnell on 73-55-7250Maxrktofjm (Bld) [Mass/Vol]Hemoglobin [Mass/volume] in LhxwnVfr96.8-15.4FNorwalk Memorial HospitalLeukocytes [#/volume] corrected for nucleated erythrocytes in Blood by Automated counOrdered By: Christiano Mcdonnell on 21-45-1232HMZ corrected for nucl RBC Auto (Bld) [#/Vol] Leukocytes [#/volume] corrected for nucleated erythrocytes in Blood by Automated coun3.8-11.6FNorwalk Memorial HospitalLymphocytes Auto (Bld) [#/Vol] Ordered By: Christiano Mcdnonell on 93-02-8808Kcpblbssfwx (Bld) [#/Vol]Lymphocytes [#/volume] in Blood by Automated count1.00-4.8[facility] Lymphocytes/100 WBC Auto (Bld)Ordered By: Christiano Mcdonnell on 10-29-2024 Lymphocytes/100 WBC (Bld)Lymphocytes/100 leukocytes in Blood by Automated count. [facility]H Auto (RBC) [Entitic mass]Ordered By: Christiano Mcdonnell on 79-88-6877GUU (RBC) [Entitic mass]MCH [Entitic mass] by Automated count24.7-34.3FNorwalk Memorial HospitalMCHC Auto (RBC) [Mass/Vol]Ordered By: Christiano Mcdonnell on 85-16-2304GKFU (RBC) [Mass/Vol]MCHC [Mass/volume] by Automated count32.0-35.0[facility] - WestMCV Auto (RBC) [Entitic vol]Ordered By: Christiano Mcdonnell on 78-50-2005WLO (RBC) [Entitic vol]MCV [Entitic volume] by Automated ebwea90-943RicvnhtwsLake County Memorial Hospital - WestMonocytes Auto (Bld) [#/Vol]Ordered By: Christiano Mcdonnell on 80-38-3264Ookjovnfd (Bld) [#/Vol]Automated blood monocyte count0.0-0.8[facility] - WestMonocytes/100 WBC Auto (Bld)Ordered By: Christiano Mcdonnell on 91-79-3251Hiwcqvukf/100 WBC (Bld)Automated monocyte %.[facility] - WestNeutrophils Auto (Bld) [#/Vol]Ordered By: Christiano Mcdonnell on 77-11-4135Oultccnsngt (Bld) [#/Vol]Neutrophils [#/volume] in Blood by Automated count1.8-7.7FNorwalk Memorial HospitalNeutrophils/100 WBC Auto (Bld) Ordered By: Christiano Mcdonnell on 17-58-6087Mhbmtrfndkp/100 WBC (Bld)Automated neutrophil %.[facility] - WestNo Panel InformationOrdered By: Christiano Mcdonnell on 31-38-2307Cyvjnmeet GFR (CKD-EPI)41.438 mL/MinLake County Memorial Hospital - WestPharmacy Creatinine Clearance (ChemN/AFNorwalk Memorial HospitalNucleated erythrocytes [Presence] in Blood by Automated count Ordered By: Christiano Mcdonnell on 05-00-8367Qmrcnpssj RBC Auto Ql (Bld)Nucleated erythrocytes [Presence] in Blood by Automated count0-0.5FNorwalk Memorial HospitalPlatelet mean volume Auto (Bld) [Entitic vol]Ordered By: Christiano Mcdonnell on 98-24-3883Iosfbvkn mean volume (Bld) [Entitic vol]Platelet mean volume [Entitic volume] in Blood by Automated count6.3-10.7FNorwalk Memorial HospitalPlatelets Auto (Bld) [#/Vol]Ordered By: Christiano Mcdonnell on 10-29-2024 Platelets (Bld) [#/Vol]Platelets [#/volume] in Blood by Automated -530 [facility] - WestPotassium [Moles/volume] in Serum or Plasma Ordered By: Christiano Mcdonnell on 94-41-4845Tzozidxxa [Moles/Vol]Potassium [Moles/volume] in Serum or PlasmaLow3.5-5.1FNorwalk Memorial Hospital Protein [Mass/volume] in Serum or PlasmaOrdered By: Christiano Mcdonnell on 10-29-2024 Protein [Mass/Vol]Protein [Mass/volume] in Serum or Plasma6.4-8.9[facility] - WestRBC Auto (Bld) [#/Vol]Ordered By: Christiano Mcdonnell on 00-27-0338IMS (Bld) [#/Vol]Erythrocytes [#/volume] in Blood by Automated count Low3.60-5.00Lutheran Hospitalerum nuclear antibody titerOrdered By: Christiano Mcdonnell on 09-37-2334Srwamdr Ab (S) [Titer]Serum nuclear antibody titer.[facility] - WestComment on above:Negative <1:80 Borderline 1:80 Positive >1:80ICAP nomenclature: AC-0For more information about Hep-2 cell patterns useANApatterns.org, the official website for theInternational Consensus on Antinuclear Antibody (TYLER)Patterns (ICAP).Performed at: [place] [id number] Director: Esteban Martinez PhD, Phone: [phone] or plasma albumin/globulin mass ratioOrdered By: Christiano Mcdonnell on 10-29-2024 Albumin/Globulin [Mass ratio]Serum or plasma albumin/globulin mass ratio Lutheran Hospitalerum or plasma anion gap determinationOrdered By: Christiano Mcdonnell on 89-75-4772Smyej gap [Moles/Vol]Serum or plasma anion gap determination6.0-15.0Lutheran Hospitalodium [Moles/volume] in Serum or PlasmaOrdered By: Christiano Mcdonnell on 90-40-0262Esfwhm [Moles/Vol]Sodium [Moles/volume] in Serum or Mpzwle066-317GpuxrhlujLake County Memorial Hospital - WestUrate [Mass/volume] in Serum or PlasmaOrdered By: Christiano Mcdonnell on 48-95-6385Yeksh [Mass/Vol]Urate [Mass/volume] in Serum or Plasma2.3-6.6FNorwalk Memorial HospitalUrea nitrogen [Mass/volume] in Serum or PlasmaOrdered By: Christiano Mcdonnell on 57-65-4699Uqhf nitrogen [Mass/Vol]Urea nitrogen [Mass/volume] in Serum or Plasma7-[facility] - WestUric Acidon 66-24-0703Ohyyw [Mass/Vol]4.7 mg/dLNormal2.3-6.6The [facility] GroupComment on above: Performed By: #### CBC, CRP, CMP, URIC, ESR #### [facility] [address] #### TYLER #### [facility] ,WBC Auto (Bld) [#/Vol]Ordered By: Christiano Mcdonnell on 26-67-1631IIW (Bld) [#/Vol] Leukocytes [#/volume] in Blood by Automated count3.8-11.6FNorwalk Memorial HospitalCNPNon 91-09-9976TAAJXcfinjtuq (HEMASA) HARMAN MCLEOD ([id number]) 1940 F Date Time Provider Department 10/09/24 [...] daily at bedtime. Cut in half - Ooinn-2-IBJ-EPA-Fish Oil 1,000 mg (120 mg-180 mg) cap Take 2 g by mouth twice daily. - isosorbide mononitrate ER (IMDUR) 60 mg 24 hr tablet Take 60 mg by mouth twice daily. Problem List As Of Date 10/09/2024 Noted Resolved Hypertension [I10] DM type 2 (diabetes mellitus, type 2) ([facility]) [E1* Essential hypertension [I10] 01/16/2017 Type 2 diabetes mellitus without complication, *01/16/2017 Hypothyroidism [E03.9] 01/16/2017 Dyslipidemia [E78.5] 01/16/2017 Atherosclerosis of [place] coronary artery of na*01/16/2017 S/P coronary artery stent placement [Z95.5] 01/16/2017 Moderate smoker (20 or less per day) [F17.210] 01/16/2017 PAD (peripheral artery disease) ([facility]) [I73.9] 01/16/2017 Vaginal lesion [N89.8] 01/20/2017 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 Stage 3a chronic kidney disease (HCC) [N18.31] 02/14/2023 Encounter Status:Closed by VERNELL DEY on 10/09/24NormalCcleveland clinic mentor hospitaland [facility] W Auto Differential panel (Bld)on 36-38-0187Jjinxxsmd (Bld) [#/Vol] 0.04 10*3/uLNINFKindred Hospital LimaBasophils/100 WBC (Bld)0.4 %[facility] Differential cell count method Nom (Bld)AutoCleveland ClinicEosinophils (Bld) [#/Vol]0.30 10*3/uLNINFCleCleveland Clinic Fairview HospitalEosinophils/100 WBC (Bld)2.9 %[facility]red Hospital LimaErythrocyte distribution width (RBC) [Ratio]14.6 %11.5 - 15.0 %[facility] Hospital LimaHematocrit (Bld) [Volume fraction]31.9 %Low36.0 - 46.0 %[facility] Hemoglobin (Bld) [Mass/Vol]10.6 g/dLLow11.5 - 15.5 g/dLKindred Hospital LimaImmature granulocytes (Bld) [#/Vol]0.07 10*3/uLNINFKindred Hospital LimaImmanorwalk memorial hospital granulocytes/100 WBC (Bld)0.7 %[facility] LimaInterpretation and review of laboratory resultsAbnormalClevelcone health wesley long hospital ClinicLymphocytes (Bld) [#/Vol]2.55 10*3/uL [facility] Hospital LimaLymphocytes/100 WBC (Bld)24.6 %[facility] HospitalH (RBC) [Entitic mass]31.0 pg26.0 - 34.0 pgCHarrison Community HospitalHC (RBC) [Mass/Vol]33.2 g/dL30.5 - 36.0 g/dLEast Ohio Regional HospitalV (RBC) [Entitic vol]93.3 fL80.0 - 100.0 fLCVan Wert County HospitalMonocytes (Bld) [#/Vol]0.86 10*3/uLNINFKindred Hospital Lima Monocytes/100 WBC (Bld)8.3 %[facility] Hospital LimaNeutrophils (Bld) [#/Vol]6.53 10*3/uLKindred Hospital LimaNeutrophils/100 WBC (Bld)63.1 %[facility] LimaNucleated RBC (Bld) [#/Vol]NINFClevelWright-Patterson Medical CenterNucleated RBC/100 WBC (Bld) [Ratio]0.0 % /100 WBCKindred Hospital LimaPlatelet mean volume (Bld) [Entitic vol]8.9 fLLow9.0 - 12.7 fLCberger hospital ClinicPlatelets (Bld) [#/Vol]290 10*3/uLKindred Hospital LimaRBC (Bld) [#/Vol]3.42 10*6/uLLow3.90 - 5.20 m/uLKindred Hospital LimaWBC (Bld) [#/Vol] 10.35 10*3/uLAdena Health System ClinicBasophils (Bld) [#/Vol]0.04 10*3/uL Normal<0.11CUniversity Hospitals [facility] on above:Order Comment: Specimen Type: BLOOD SPECIMEN Ordering Facility: [facility] Address: [address] [place], [place] [address]Performed By: #### [id number] #### [facility] CLIA [id number] [address] [place], [place] [address]Syqzhwvoz/100 WBC (Bld)0.4 %NormalOhio Valley Surgical Hospital Comment on above:Order Comment: Specimen Type: BLOOD SPECIMEN Ordering Facility: [facility] Address: [address] [place], [place] [address]Performed By: #### [id number] #### [facility] CLIA [id number] [address] [place] [address]1969Cbbnnapfvthi cell count method Nom (Bld)AutoNormalCToledo HospitalComtrinity health grand rapids [facility] on above:Order Comment: Specimen Type: BLOOD SPECIMEN Ordering Facility: [facility] Address: [address] [place], [place] [address]Performed By: #### 91621-3 #### [facility] CLIA [id number] [address] [place] [address] 91481Eyxfwmuavog (Bld) [#/Vol]0.30 10*3/uLNormal<0.46[facility] on above:Order Comment: Specimen Type: BLOOD SPECIMEN Ordering Facility: [facility] Address: [address] [place], [place] [address]Performed By: #### [id number] #### [facility] CLIA [id number] [address] [place], [place] [address]Cwbltvlcoje/100 WBC (Bld)2.9 %NormalOhio Valley Surgical Hospital Comment on above:Order Comment: Specimen Type: BLOOD SPECIMEN Ordering Facility: [facility] Address: [address] [place], [place] [address]Performed By: #### [id number] #### [facility] CLIA [id number] [address] [place] [address] 33047Doontifapxj distribution width (RBC) [Ratio]14.6 %Normal 11.5-15.0[facility] on above:Order Comment: Specimen Type: BLOOD SPECIMEN Ordering Facility: [facility] Address: [address] [place], [place] [address]Performed By: #### [id number] #### [facility] CLIA [id number] [address] [place] [address]Qxyqybefts (Bld) [Volume fraction]31.9 %Low36.0-46.0[facility] on above:Order Comment: Specimen Type: BLOOD SPECIMEN Ordering Facility: [facility] Address: [address] [place], [place] [address]Performed By: #### [id number] #### [facility] CLIA [id number] [address] [place] [address] 07327Rownfflvbf (Bld) [Mass/Vol]10.6 g/dLLow11.5-15.5CUniversity Hospitals E[facility] on above:Order Comment: Specimen Type: BLOOD SPECIMEN Ordering Facility: [facility] Address: [address] [place], [place] [address]Performed By: #### 84085-3 #### [facility] CLIA [id number] [address] [place] [address] 41462Vwjzbenq granulocytes (Bld) [#/Vol]0.07 10*3/uLNormal<0.10 [facility] on above:Order Comment: Specimen Type: BLOOD SPECIMEN Ordering Facility: [facility] Address: [address] [place], [place] [address]Performed By: #### 87961-3 #### [facility] CLIA [id number] [address] [place] [address]98[address]Fjzgtwxt granulocytes/100 WBC (Bld)0.7 %NormalGerman Hospital on above:Order Comment: Specimen Type: BLOOD SPECIMEN Ordering Facility: [facility] Address: [address] [place], [place] [address]Performed By: #### 60516-1 #### [facility] CLIA [id number] [address] [place], [place] [address]Quigcrjnopt (Bld) [#/Vol]2.55 10*3/uLNormal1.00-4.00[facility] on above:Order Comment: Specimen Type: BLOOD SPECIMEN Ordering Facility: [facility] Address: [address] [place], [place] [address]Performed By: #### 24115-6 #### [facility] CLIA [id number] [address] [place] [address] 35557Jwwiplmsutr/100 WBC (Bld)24.6 %NormalGerman Hospital on above:Order Comment: Specimen Type: BLOOD SPECIMEN Ordering Facility: [facility] Address: [address] [place], [place] [address]Performed By: #### [id number] #### [facility] CLIA [id number] [address] [place] [address] 22065LHV (RBC) [Entitic mass]31.0 fsEmyqte40.0-34.0[facility] on above:Order Comment: Specimen Type: BLOOD SPECIMEN Ordering Facility: [facility] Address: [address] [place], [place] [address]Performed By: #### [id number] #### [facility] CLIA [id number] [address] [place] [address] [id number] (RBC) [Mass/Vol]33.2 g/oPMscqqx87.5-36.0[facility] on above:Order Comment: Specimen Type: BLOOD SPECIMEN Ordering Facility: [facility] Address: [address] [place], [place] [address]Performed By: #### 31349-3 #### [facility] CLIA [id number] [address] [place] [address] 56469HIS (RBC) [Entitic vol]93.3 sGOzccml64.0-100.0[facility] on above:Order Comment: Specimen Type: BLOOD SPECIMEN Ordering Facility: [facility] Address: [address] [place], [place] [address]Performed By: #### 15673-0 #### [facility] CLIA [id number] [address] [place] [address] 90014Cbbyszxii (Bld) [#/Vol]0.86 10*3/uLNormal<0.87[facility] on above:Order Comment: Specimen Type: BLOOD SPECIMEN Ordering Facility: [facility] Address: [address] [place], [place] [address]Performed By: #### 29677-7 #### [facility] CLIA [id number] [address] [place] [address] 95240Ydelxsaez/100 WBC (Bld)8.3 %NormalOhio Valley Surgical Hospital Comment on above:Order Comment: Specimen Type: BLOOD SPECIMEN Ordering Facility: [facility] Address: [address] [place], [place] [address]Performed By: #### 61359-2 #### [facility] CLIA [id number] [address] [place] [address] 96294Hevxybxeygw (Bld) [#/Vol]6.53 10*3/uLNormal1.45-7.50[facility] on above:Order Comment: Specimen Type: BLOOD SPECIMEN Ordering Facility: [facility] Address: [address] [place], [place] [address]Performed By: #### 13862-8 #### [facility] CLIA [id number] [address] [place] [address] 01270Koeopgrewfy/100 WBC (Bld)63.1 %NormalGerman Hospital on above:Order Comment: Specimen Type: BLOOD SPECIMEN Ordering Facility: [facility] Address: [address] [place], [place] [address]Performed By: #### 50643-3 #### [facility] CLIA [id number] [address] [place] [address] 49[address]Uahmlqaqq RBC (Bld) [#/Vol]10*3/uLNormal<0.01[facility] on above:Order Comment: Specimen Type: BLOOD SPECIMEN Ordering Facility: [facility] Address: [address] [place], [place] [address]Performed By: #### 63867-3 #### [facility] CLIA [id number] [address] [place], [place] [address]Xjktfvbku RBC/100 WBC (Bld) [Ratio]0.0 /100 WBCNormalCUniversity Hospitals Elyria Medical Center on above:Order Comment: Specimen Type: BLOOD SPECIMEN Ordering Facility: [facility] Address: [address] [place], [place] [address]Performed By: #### 61325-8 #### [facility] CLIA [id number] [address] [place], [place] [address]Zvesfrar mean volume (Bld) [Entitic vol]8.9 fLLow9.0-12.7 [facility] on above:Order Comment: Specimen Type: BLOOD SPECIMEN Ordering Facility: [facility] Address: [address] [place], [place] [address]Performed By: #### 03287-4 #### [facility] CLIA [id number] [address] [place], [place] [address]Okfpykpav (Bld) [#/Vol]290 10*3/fGUsnawi064-601ExhtrlzwcGerman Hospital on above:Order Comment: Specimen Type: BLOOD SPECIMEN Ordering Facility: [facility] Address: [address] [place], [place] [address]Performed By: #### 43953-6 #### [facility] CLIA [id number] [address] [place], [place] [address]CLL (Bld) [#/Vol]3.42 10*6/uLLow3.90-5.20[facility] on above:Order Comment: Specimen Type: BLOOD SPECIMEN Ordering Facility: [facility] Address: [address] [place] [address], [place] [address]Ebzvnentg By: #### 61147-6 #### [facility] CLIA [id number] [address] [place] [address] 53854NPI (Bld) [#/Vol]10.35 10*3/uLNormal3.70-11.00Ohio Valley Surgical HospitalComment on above:Order Comment: Specimen Type: BLOOD SPECIMEN Ordering Facility: [facility] Address: [facility] [place], [place] [address]Bwlfqqhxy By: #### 29480-6 #### [facility] CLIA [id number] [address] [place], [place] [address]JJAYLHap [phone] (SP) Office (HEMASA) HARSHAHARMAN Coronel ([id number]) 1940 F Date Time Provider Department 10/08/24 1:00 PM VAIBHAV ASHTON During your visit today, we recorded the following information about you: Temperature Pulse Respiration Blood pressure 97.2 degrees 75/minute 16/minute 144/63 Weight Height 67.5 kg 1.549 m Vaibhav Ashton MD 10/08/2024 2:03 PM Addendum PATIENT NAME: Harman Coronel [facility] NO.: [id number] ATTENDING PHYSICIAN: Vaibhav Ashton MD DATE OF SERVICE: 10/08/24 Some of the elements of this note have been copied from Winnei MILLAN previous progress note dated 06/20/23. All the information has been reviewed carefully. CC: Follow up Diagnosis: T1b, N0, M0- R breast, Tumor 9 mm, Grade 2, Margins negative, Negative LVI, 2 SNL negative, ER and SC >95% positive, Her2 IHC 1+ Treatment History: [...] in Jun 2024 - Mammogram done at [facility] - On eliquis for Afib PAST MEDICAL [...] 30 04/28/2020 28 Crea (more content not included)...NormalOhio Valley Surgical HospitalComprehensive metabolic 2000 panelOrdered By: Ben Vargas on 47-12-8532Bpyrnkw [Mass/Vol]3.9 g/dL3.9 - 4.9 g/dLHanna ClinicALP [Catalytic activity/Vol]88 U/L34 - 123 U/L [...] eGFRmay not accurately reflect actual GFR.Glucose [Mass/Vol]122 mg/dSYvxn21 - 99 mg/dLHanna ClinicComment on above:The Swedish Diabetes Association (ADA) provides guidance for cutoff [...] Standards of Medical Care in Diabetes 2016, Swedish Diabetes Association. Diabetes Care. 2016.39(Suppl 1). Interpretation and review of laboratory resultsAbnormalCleveland ClinicPotassium [Moles/Vol]3.4 mmol/LLow3.7 - 5.1 mmol/LCleveland ClinicProtein [Mass/Vol]6.9 g/dL6.3 - 8.0 g/dLCleveland ClinicSodium [Moles/Vol]141 mmol/L136 - 144 mmol/L [facility] nitrogen [Mass/Vol]19 mg/dL7 - 21 mg/dLCleveland Clinic Foundationprehensive metabolic 2000 panelon 29-54-0149Winkwxr [Mass/Vol]3.9 g/dLNormal3.9-4.9CUniversity Hospitals Elyria Medical Center on above:Order Comment: Specimen Type: BLOOD SPECIMEN Ordering Facility: [facility] Address: [address] [place], [place] [address]Performed By: #### 67960-4 #### [facility] CLIA [id number] [address] [place], [place] [address]REQ [Catalytic activity/Vol]88 U/TQdsqzm37-692VmlsglpnoGerman Hospital on above:Order Comment: Specimen Type: BLOOD SPECIMEN Ordering Facility: [facility] Address: [address] [place], [place] [address]Performed By: #### 23266-4 #### [facility] CLIA [id number] [address] [place], [place] [address]SQX [Catalytic activity/Vol]7 U/LNormal7-38[facility] on above:Order Comment: Specimen Type: BLOOD SPECIMEN Ordering Facility: [facility] Address: [address] [place], [place] [address]Performed By: #### 10218-5 #### [facility] CLIA [id number] [address] [place], [place] [address]Mypny gap [Moles/Vol]13 mmol/LNormal8-15[facility] on above:Order Comment: Specimen Type: BLOOD SPECIMEN Ordering Facility: [facility] Address: [address] [place], [place] [address]Performed By: #### 26810-5 #### [facility] CLIA [id number] [address] [place], [place] [address]LKB [Catalytic activity/Vol]11 U/PAwq64-03SiesetqaiGerman Hospital on above:Order Comment: Specimen Type: BLOOD SPECIMEN Ordering Facility: [facility] Address: [address] [place], [place] [address]Performed By: #### 23122-2 #### [facility] CLIA [id number] [address] [place], [place] [address]Hupijsqbv [Mass/Vol]0.3 mg/dLNormal0.2-1.3CToledo HospitalComtrinity health grand rapids hospital on above:Order Comment: Specimen Type: BLOOD SPECIMEN Ordering Facility: [facility] Address: [address] [place], [place] [address]Performed By: #### 15823-9 #### [facility] CLIA [id number] [address] [place], [place] [address]Sbvpoap [Mass/Vol]9.7 mg/dLNormal8.5-10.2CToledo HospitalComment on above:Order Comment: Specimen Type: BLOOD SPECIMEN Ordering Facility: [facility] Address: [address] [place], [place] [address]Performed By: #### 35096-6 #### [facility] CLIA [id number] [address] [place] [address] 355[address]Ngsvsvxa [Moles/Vol]99 mmol/CJrqnnx95-056QvnoaqvdhOhio Valley Surgical HospitalComment on above:Order Comment: Specimen Type: BLOOD SPECIMEN Ordering Facility: [facility] Address: [address] [place], [place] [address]Performed By: #### 06289-7 #### [facility] CLIA [id number] [address] [place], [place] [address]KT4 [Moles/Vol]29 mmol/CSypxsf85-05JdoiljuvdOhio Valley Surgical Hospital Comment on above:Order Comment: Specimen Type: BLOOD SPECIMEN Ordering Facility: [facility] Address: [address] [place], [place] [address]Performed By: #### 97321-8 #### [facility] CLIA [id number] [address] [place], [place] [address]Rzperkakuj [Mass/Vol]1.49 mg/dLHigh0.58-0.96Delaware County Hospitalment on above:Order Comment: Specimen Type: BLOOD SPECIMEN Ordering Facility: [facility] Address: [address] [place] [address]Bnmgdtexk By: #### 06935-2 #### [facility] CLIA [id number] [address] [place] [address]Kdciajaeyy and Glomerular filtration rate.predicted panel (S/P/Bld)35 mL/min/1.73m???Low>=60[facility] on above: Order Comment: Specimen Type: BLOOD SPECIMEN Ordering Facility: [facility] Address: [address] [place] [address]Mjagja Comment: Estimated Glomerular Filtration Rate (eGFR) is [...] not accurately reflect actual GFR.Performed By: #### 02753-1 #### [facility] CLIA [id number] [address] [place] [address]Ktdudcr [Mass/Vol]122 mg/jGNfsu04-41AyipzmhovOhio Valley Surgical Hospital Comment on above:Order Comment: Specimen Type: BLOOD SPECIMEN Ordering Facility: [facility] Address: [address] [place] [address]Xudbhu Comment: The Swedish Diabetes Association (ADA) provides guidance for cutoff [...] Standards of Medical Care in Diabetes 2016, Swedish Diabetes Association. Diabetes Care. 2016.39(Suppl 1).Performed By: #### 08243-4 #### [facility] CLIA [id number] [address] [place], [place] [address]Oazopocdu [Moles/Vol]3.4 mmol/LLow3.7-5.1CUniversity Hospitals Elyria Medical Center on above:Order Comment: Specimen Type: BLOOD SPECIMEN Ordering Facility: [facility] Address: [address] [place], [place] [address]Performed By: #### 22398-9 #### [facility] CLIA [id number] [address] [place] [address]Beafcrk [Mass/Vol]6.9 g/dLNormal6.3-8.0[facility] on above:Order Comment: Specimen Type: BLOOD SPECIMEN Ordering Facility: [facility] Address: [address] [place], [place] [address]Performed By: #### 12756-6 #### [facility] CLIA [id number] [address] [place] [address]89[address]Nmoxcb [Moles/Vol]141 mmol/NNoznxy885-141ObqlrrsfrGerman Hospital on above:Order Comment: Specimen Type: BLOOD SPECIMEN Ordering Facility: [facility] Address: [address] [place], [place] [address]Performed By: #### 89324-1 #### [facility] CLIA [id number] [address] [place] [address]Utyr nitrogen [Mass/Vol]19 mg/dLNormal7-21[facility] on above:Order Comment: Specimen Type: BLOOD SPECIMEN Ordering Facility: [facility] Address: [address] [place], [place] [address]Performed By: #### 76680-3 #### [facility] CLIA [id number] [address] [place] [address]Skxqksxi [facility] 40-17-1289Ixpzlszv [Mass/Vol]143.0 ng/mL Klavnm32.7-205.1CUniversity Hospitals Elyria Medical Center on above:Order Comment: Specimen Type: BLOOD SPECIMEN Ordering Facility: [facility] Address: [address] [place], [place] [address]Performed By: #### 2132-9, 2276-4, 42849-8, 2283-8 #### [facility] CLIA [id number] [address] [place] [address] [place] STATES OF AMERICAFolate SerPl-mCncon 67-16-3275Ccjfwd [Mass/Vol]10.2 ng/mLNormal>4.7CUniversity Hospitals Elyria Medical Center on above:Order Comment: Specimen Type: BLOOD SPECIMEN Ordering Facility: [facility] Address: [address] [place], [place] [address]Performed By: #### 2132-9, 2276-4, 60369-8, 2283-8 #### [facility] CLIA [id number] [address] [place] [address] STATES OF [facility]S HOSPITALIron and Iron binding capacity panelon 57-89-9803Erjt [Mass/Vol]48 ug/mWOppzds10-413RqibfwxkuGerman Hospital on above:Order Comment: Specimen Type: BLOOD SPECIMEN Ordering Facility: [facility] Address: [address] [place], [place] [address]Performed By: #### 2132-9, 6-4, 73071-5, 2283-8 #### [facility] CLIA [id number] [address] [place] [address] STATES [facility] HOSPITALIron binding capacity [Mass/Vol]237 ug/bGMrcqtx270-648SjzltmyneGerman Hospital on above:Order Comment: Specimen Type: BLOOD SPECIMEN Ordering Facility: [facility] Address: [address] [place], [place] [address]Performed By: #### 2132-9, 6-4, 88237-0, 2283-8 #### [facility] CLIA [id number] [address] [place] [address] AMERICAIron/TIBC [Molar ratio]20.3 %Rffnpk27.0-57.0[facility] on above:Order Comment: Specimen Type: BLOOD SPECIMEN Ordering Facility: [facility] Address: [address] [place], [place] [address]Performed By: #### 2132-9, 2276-4, 01436-4, 2284-8 #### [facility] CLIA [id number] [address] [place], [place] [address]Vit B12 SerPl-[facility] 54-78-8024Sowmcxuds (Vitamin B12) [Mass/Vol]214 pg/vBGou252-3244YieoppcusUniversity Hospitals Elyria Medical Center on above:Order Comment: Specimen Type: BLOOD SPECIMEN Ordering Facility: [facility] Address: [address] [place], [place] [address]Performed By: #### 2132-9, 2276-4, 26281-4, 228-8 #### [facility] CLIA [id number] [address] [place] [address] STATES OF AMERICACNPNon [phone] Telephone (INDIA) HARMAN MCLEOD ([id number]) 1940 F Date Time Provider Department 10/04/24 [...] that he practices out of the [facility] location. I made her aware that I will send a message and she is to expect a call. Patient and daughter agree with plan and appreciate the time. Maylin Sandoval, RN Evita Deshpande RN 10/04/2024 12:51 PM Signed Per 06/20/23 [facility] oncology: pt is to return in about 4 months (around 10/21/2023) for MD miquel visit. 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 Cut in half - Ximef-6-OSS-EPA-Fish Oil 1,000 mg (120 mg-180 mg) cap Take 2 g by mouth twice daily. - isosorbide mononitrate ER (IMDUR) 60 mg 24 hr tablet Take 60 mg by mouth twice daily. Problem List As Of Date 10/04/2024 Noted Resolved Hypertension [I10] DM type 2 (diabetes mellitus, type 2) ([facility]) [E1* Essential hypertension [I10] 01/16/2017 Type 2 diabetes mellitus without complication, *01/16/2017 Hypothyroidism [E03.9] 01/16/2017 Dyslipidemia [E78.5] 01/16/2017 Atherosclerosis of [place] coronary artery of na*01/16/2017 S/P coronary artery stent placement [Z (more content not included)...Normal [facility] Surgical HospitalFoow-Upon 68-30-8292Mffczt-[id number] Harman Mcleod 1940 Provider Department Center 09/24/2024 BRIAN FLANNERY [facility] Family History Problem Relation Age of Onset Stroke Mother Coronary artery disease Father Heart attack Father Family Status - Relation Status Age at Mother Father Level of Service:40821 [place] OFFICE/OUTPATIENT ESTABLISHED LOW MDM 20 MINNoThe MetroHealth SystemFoow-Upon 54-29-2981Rcghlb-[id number] Harman Mcleod 1940 Provider Department Center 09/12/2024 BRIAN FLANNERY [facility] [place] [facility] Family History Problem Relation Age of Onset Stroke Mother Coronary artery disease Father Heart attack Father Family Status - Relation Status Age at Mother Father Level of Service:33169 SC OFFICE/OUTPATIENT ESTABLISHED LOW MDM 20 MIN Reason for Visit and Comments: Follow-up [357599] - Wound checkNormalUniversMercer County Community HospitalOffice Visiton 84-28-7943Rbcpik-up [id number] Harman Mcleod 1940 Provider Department Center 09/02/2024 BRIAN FLANNERY [facility] [place] [facility] Family History Problem Relation Age of Onset Stroke Mother Coronary artery disease Father Heart attack Father Family Status - Relation Status Age at Mother Father Level of Service:04634 SC OFFICE/OUTPATIENT ESTABLISHED SF MDM 10 MINNormal [facility] CenterOffice Visiton 17-95-5399Vhfwai-up visit [id number] Harman Mcleod 1940 F Date Provider Department Center 08/27/2024 BRIAN FLANNERY [facility] Family History Problem Relation Age of Onset Stroke Mother Coronary artery disease Father Heart attack Father Family Status - Relation Status Age at Mother Father Level of Service:17220 SC OFFICE/OUTPATIENT ESTABLISHED LOW MDM 20 [facility] TroyHPon 12-56-3790FUWA Electrophysiology Consult Note [place] [facility] Reason for visit: Afib 08/12/24 Pt had [employer] on 07/10/24 and now presents for AVN [...] in A-fib. She was just discharged from [facility] for GI bleed. Eliquis and aspirin [...] disease) Cancer (CMS/HCC) CHF (congestive heart failure) ([facility]) Chronic kidney disease COPD (chronic obstructive pulmonary disease) ([facility]) Diabetes mellitus ([facility]) GI bleed Heart murmur Hyperlipidemia Hypertension PVD (peripheral vascular disease) ([facility]) PSH: Past Surgical History: Procedure Laterality Date CARDIAC CATHETERIZATION 12/15/2011, 08/23/2010, 12/30/2004, CORONARY STENT PLACEMENT HYSTERECTOMY 03/11/2005 VASCULAR SURGERY SH: Social Determinants of Health Tobacco Use: Medium Risk (06/20/2024) [facility] Patient History Smoking Tobacco Use: Former Smokeless Tobacco Use: Never Passive Exposure: Not on file Alcohol Use: Not on file Financial Resource Strain: Not on file Food Insecurity: Not on file Transportation Needs: Not on file Physical Activity: Not on file Stress: Not on file Social Connections: Not on file Intimate Partner Violence: Unknown (11/02/2023) [place] Safety & Environment Fear of Current or Ex-Partner: Not on file Emotionally Abused: Not on file Physically Abused: Not on file Sexually Abused: Not on file Physically or Sexually Abused: Not on file Depression: Not at risk (02/14/2023) Received from [facility] PHQ-2 PHQ-2 score: 0 Housing Stability: [...] mouth two times daily. fish oil concentrate ([place]-3) 120-180 mg capsule Take 1,000 mg by [...] mcg by mouth in (more content not included)...[facility]awas HospitalNURSNOTEon 08-12-2024 NURSNOTERN educated pt on d/c [...] wheeled off of unit with all of belongings.NormalGalion HospitalConsultation Noteon 86-05-0589Tqeskfsquzlq Note [id number]#1.00TIFFNormalFisher Greater Baltimore Medical CenterVaginitis DNA Probeon 64-89-7036KljtaewAvipehsyUcoqvwVYIIlvjx St. Vincent Medical CenterComment on above:Result Comment: for Manjula sp. Method of testing is a DNA probe intended for detection and identification of Manjula species, Gardnerella vaginalis, and Trichomonas vaginalis nucleic acid in vaginal fluid specimens from patients with symptoms of vaginitis/vaginosis. Performed By: #### VAGP #### [address] [id number] Plant Worker: Estephanie SmithllaNegativeNormalOhioHealth Pickerington Methodist HospitalComment on above:Result Comment: for Gardnerella vaginalis Performed By: #### VAGP #### [address] [address] Plant Worker: Sanaz SmithhomonasNegativeMercy Health [place] Regional Medical CenterComment on above:Result Comment: for Trichomonas Vaginalis Performed By: #### VAGP #### [facility] [employer] [address] [place] [address] Plant Worker: Shaheen Smith.VAGINAL SWABHocking Valley Community HospitalComment on above:Performed By: #### VAGP #### [address] [id number] Plant Worker: Fidel Hylton MDOPERATIVE REPORTon 06-20-4763KVMNJFVAP REPORT [address] [address] OPERATIVE REPORT PATIENT NAME: HARMAN MCLEOD : 1940 MED REC NO: [id number] ROOM: ACCOUNT NO: [id number] ADMIT DATE: 03/06/2023 PROVIDER: Emma Garza MD DATE OF PROCEDURE: 03/06/2023 PREOPERATIVE DIAGNOSIS: Recurrent vaginal dysplasia. POSTOPERATIVE DIAGNOSIS: Recurrent vaginal dysplasia. OPERATION PERFORMED: Examination under anesthesia, carbon dioxide laser vaporization of vaginal dysplasia. COMPLICATIONS: None. BLOOD LOSS: Minimal. SURGEON: Emma Garza MD DIGITAL OPERATIONS ANALYST: Mauri (resident). DISPOSITION: The patient to recovery room stable. SPECIMENS: No specimen sent to Pathology. OPERATIVE FINDINGS: The patient had a small 1-2 cm area of pqqefugt-xj-nzklfc dysplasia along the anterior vagina from 12 [...] entire procedure. EMMA GARZA MD CL/S_[email or web address] Doc#: [id number] CC:NormalGalion Community HospitalConsultation Noteon 02-19-2023 Consultation [id number]#1.00CD:127Henry County HospitalConsultation Noteon 92-44-0965Wszqxxqwvmru Note [id number]#1.00CD:127Henry County HospitalComment on above:Other Comment: MISSING PAGES CRRCULTURE URINEon 45-36-3596TVPPVDN URINECulture Observations: VERY LIGHT GROWTH OF MIXED GENITAL SAGE. NO POTENTIAL PATHOGENS SEEN.NormalUniversity Hospitals St. John Medical CenterComment on above:Performed By: #### URCX ####[facility] [address] [place], [place] [address]XbMedardo Omid Mir RANDOM W/MICROSCOPICon 16-34-5863HGOCWOOKHWSUGKotkbpnfYUXS SEENThe [facility] Comment on above:Performed By: #### HGB #### [facility] Laboratory [address] [place] [address] [address] Omid BowdenBilirubin Ql (U)NegativeNormalNEGATIVEUniversity Hospitals St. John Medical Center Comment on above:Performed By: #### HGB #### [facility] [address] [address] [address] Omid BowdenCASTNONE SEENNormalNONE SEENUniversity Hospitals St. John Medical CenterComment on above:Performed By: #### HGB #### [facility] [address] [address] [address] Omid Sheaarity (U)CLEARNormalCLEARUniversity Hospitals St. John Medical CenterComment on above: Performed By: #### HGB #### [facility] [address] [place] [address] Dr. Omid Serranolor (U)LT. YELLOWNormalYELLOWUniversity Hospitals St. John Medical CenterComment on above:Performed By: #### HGB #### [facility] [address] [place] [address] Dr. Omid BowdenCrystals LM Nom (Urine sed)NONE SEENNormalNONE SEENUniversity Hospitals St. John Medical CenterComment on above:Performed By: #### HGB #### [facility] [address] [place] [address] Dr. Anne ChangEpithelial cells LM Ql (Urine sed)RARENormalNONE SEEN /RAREUniversity Hospitals St. John Medical CenterComment on above:Performed By: #### HGB #### [facility] [facility] [address] [place] [address] Dr. Omid BowdenGlucose Ql (U)NegativeNormalNEGATIVEUniversity Hospitals St. John Medical CenterComment on above:Performed By: #### HGB #### [facility] [address] [address] [address] Omid BowdenHemoglobin Ql (U)NegativeNormalNEGATIVEUniversity Hospitals St. John Medical Center Comment on above:Performed By: #### HGB #### [facility] [address] [place] [address] Dr. Omid BowdenKetones Ql (U)NegativeNormalNEGATIVEUniversity Hospitals St. John Medical CenterComment on above:Performed By: #### HGB #### [facility] [address] [address] [address] Omid BowdenLEUKOCYTESSMALLAbnormalNEGATIVEThe [facility] CampusComment on above:Performed By: #### HGB #### [facility] [address] [place] [address] Dr. Omid BowdenMUCOUSDARIEN SEENNormalNONE SEENUniversity Hospitals St. John Medical CenterComment on above:Performed By: #### HGB #### [facility] [address] [place] [address] Dr. Omid BowdenNitrite Ql (U)NegativeNormalNEGATIVEThe [facility] CampusComment on above:Performed By: #### HGB #### [facility] [address] [place] [address] Dr. Omid BowdenpH (U)6.0 [pH]Normal5-9The [facility] CampusComment on above: Performed By: #### HGB #### [facility] [address] [place] [address] Dr. Omid BowdenLhzwqIQO7-8Eiwqnx5-2Hkr [facility] CampusComment on above:Performed By: #### HGB #### [facility] [address] [place] [address] Dr. Omid BowdenSPEC GRAVITY<=1.667Nbsqkrlj9.005-<=1.025[facility] Comment on above:Performed By: #### HGB #### [facility] [address] [place] [address] Dr. Omid Mir PROTEINNegativeNormalNEGATIVE/ TRACEThe [facility] Comment on above:Performed By: #### HGB #### [facility] [address] [place] [address] Dr. Omid Daybilinogen Qn (U)0.2 {Jose'U}/dLNormal0.2 - 1.0The [facility] CampusComment on above:Performed By: #### HGB #### [facility] [address] [place] [address] Dr. Omid BowdenWBC0-2AbnormalNONE [facility] SystemComment on above: Performed By: #### HGB #### [facility] [address] [place], [place] [address] Dr. Omid BowdenCreatinine [Mass/volume] in Serum or PlasmaOrdered By: Christiano Gonzales on 71-37-0737Rjvhewoadm [Mass/Vol]1.37 mg/dL0.60-1.20[facility]Labor[facility] and Chemistry - challengeOrdered By: Christiano Gonzales on 35-28-7745TVX/1.73 sq M.predicted MDRD (S/P/Bld) [Vol rate/Area]39.034 mL/min/{1.73_m2}[facility] - WestNo Panel InformationOrdered By: Christiano Gonzales on 86-01-1196Luvhelxr Creatinine Clearance (Chem31.71[facility] - WestUrea nitrogen [Mass/volume] in Serum or PlasmaOrdered By: Christiano Gonzales on 26-52-4474Mqkz nitrogen [Mass/Vol]35 mg/dL7-25[facility] Hospitalurgical Pathologyon 15-02-1123Lvsehszl Pathology(NOTE) -- Diagnosis -- VAGINA, 12:00, BIOPSY: [...] SURGICAL PATHOLOGY CONSULTATION Patient Name: HARMAN MCLEOD [facility] Rec: [id number] Path Number: [id number] [employer] [facility] [employer] [facility] [address] [place] [id number] NoElyria Memorial HospitalComment on above: Performed By: #### PPPVS #### [employer] [address] [place] [id number] Plant Worker: Fidel Hylton [facility] Medical Centerulatory Visit Summaryon 74-11-1198Mkrdtbmuhj Visit Summary HARMAN MCLEOD :1940 Visit Date:11/22/2022 [...] and diastolic (congestive) heart failure Atherosclerosis of [place] artery of extremity BMI 36.0-36.9,adult Brain stem [...] Rectal bleeding Stage 2 chronic kidney disease [facility] Surgery Office/Clinic Noteon 50-46-6192Kfusuyn Surgery Office/Clinic NoteChief Complaint post operative follow [...] Jose Only if needed [address] [place] [address]- Additional Instructions: Problem List/Past Medical History Ongoing Acute combined systolic (congestive) and diastolic (congestive) heart failure Atherosclerosis of [place] artery of extremity BMI 36.0-36.9,adult Brain stem [...] Cigarettes, 0.5 per d (more content not included)...[facility] County HospitalComment on above:Result Comment: Electronically Signed By: CHELSI CARDONA, Iliana Alvarez\Date and Time Signed: 11/22/22 15:17 EDTCovid-19 PCR ([facility]) on 00-08-8520BMPW-CoV-2 (COVID-19) RNA MARII+probe Ql (Unsp spec)Not detected NormalNOT DETECTEDThe [facility] CampusComment on above:Result Comment: When diagnostic testing is [...] for this test is supported by the [place] of Health and Human Service's declaration that [...] longer be used).Performed By: #### HGB #### [facility] [address] [address] [address] Omid Nair AND B AGon 48-84-9773NQBEVWCCCOBGRUniversity Hospitals Conneaut Medical Centerment on above:Result Comment: Negative for Flu A protein angiten. Infection due to Flu A cannot be ruled out. FluA angiten in the sample may be below the detection limit of the test.Performed By: #### INFLUAB ####[facility] [address] [address]Dr. Omid BowdenINFLUBNEGHSEE [facility] Pike Medical CenterComment on above:Result Comment: Negative for Flu B protein antigen. Infection due to Flu B cannot be ruled out. FluB antigen in the sample may be below the detection limit of the test.Performed By: #### INFLUAB ####[facility] [address] [address]Dr. Omid Rodarte A AGNegativeNormalNEGATIVE SEE COMMENTThe [facility] CampusComment on above:Performed By: #### INFLUAB ####[facility] [address] [place], [place] [address]Dr. Omid Rodarte B AGNegativeNormalNEGATIVE SEE COMMENTThe [facility] Comment on above:Performed By: #### INFLUAB ####[facility] [address] [place], [place] [address]Dr. Omid BowdenAmbulatory Visit Summaryon 86-24-3126Wekxrcxejb Visit Summary HARMAN MCLEOD :1940 Visit Date:11/08/2022 Ambulatory Visit Instructions Your Care Team Attending Physician - CHELSI CARDONA, Iilana Ramirez Primary Care Physician - Mateus Perry [...] and diastolic (congestive) heart failure Atherosclerosis of [place] artery of extremity BMI 36.0-36.9,adult Brain stem [...] Rectal bleeding Stage 2 chronic kidney disease [facility] Surgery Office/Clinic Noteon 38-62-5256Hhxqtym Surgery Office/Clinic NoteChief Complaint post operative follow [...] and diastolic (congestive) heart failure Atherosclerosis of [place] artery of extremity BMI 36.0-36.9,adult Brain stem [...] 09/09/2022 Family History Tran (more content not included)...[facility] County HospitalComment on above:Result Comment: Electronically Signed By: CHELSI CARDONA, Iliana Ramirez\.br\Date and Time Signed: 11/08/22 14:22 ESTAmbulatory Visit Summaryon 33-37-3557Oiirynihck Visit Summary HARMAN MCLEOD :1940 Visit Date:11/04/2022 [...] CARDONA, Iliana Ramirez Where: General Surgery Chelsi/[facility] General Surgery Office/Clinic Noteon 08-30-5436Nehipqf Surgery Office/Clinic NoteChief Complaint bleeding from incision [...] and diastolic (congestive) heart failure Atherosclerosis of [place] artery of extremity BMI 36.0-36.9,adult Brain stem [...] Years., 09/09/2022 Family Histor (more content not included)...[facility] Comment on above:Result Comment: Electronically Signed By: CHELSI CARDONA, Iliana Castillo.veto\Date and Time Signed: 11/04/22 14:35 ESTUS HARRIET DOP LEG BILon 76-31-3723WB HARRIET DOP LEG BILEXAM: US HARRIET DOP [...] Electronically authenticated by: MIGUELITO TELLEZ Date: 2022-11-02 17:17[facility] HospitalPathology Noteon 83-14-8739Dypotkrqn Note [id number]#1.00CD:127[facility] HospitalAmbulatory Visit Summaryon 40-39-4720Btoibwcxsx Visit Summary HARMAN MCLEOD :1940 Visit Date:10/25/2022 [...] Iliana GAGNON MD Where: General Surgery Nilnikolai/[facility] General Surgery Office/Clinic Noteon 09-35-5557Wnrbknn Surgery Office/Clinic NoteChief Complaint post operative follow [...] and diastolic (congestive) heart failure Atherosclerosis of [place] artery of extremity BMI 36.0-36.9,adult Brain stem [...] Mother. Heart disease: Mo (more content not included)...[facility] HospitalComment on above:Result Comment: Electronically Signed By: CHELSI CARDONA, Iliana Alvarez\Date and Time Signed: 10/25/22 16:13 ESTOperative Reporton 12-90-4688Parethoxp [id number]#1.00CD:127 [facility] HospitalRAD - Ultrasound Reporton 66-92-1064UCT - Ultrasound [id number]#1.00CD:127[facility] HospitalNM SENTNL NODEon 69-26-3629GB SENTNL NODEJ.W. [facility] MEDICINE LYMPHOSCINTIGRAPHY. HISTORY: Infiltrating duct carcinoma of [...] Electronically authenticated by: KRISTIN JAQUEZ Date: 2022-10-19 10:41[facility] GLUCOSEon 24-39-9980Mbpmmuc [Mass/Vol]153 mg/dL Critically gfqw62-536Ltx [facility] CampusComment on above:Performed By: #### POCGLUC #### [facility] [address] [place] [address] Dr. Omid BowdenRAD - MISCon 47-56-9735URT - MISC [id number]#1.00CD:127[facility] HospitalRAD - [id number]#1.00CD:127[facility] HospitalRAD - Ultrasound Reporton 23-10-4679BQI - Ultrasound Report [id number]#1.00CD:[address] [place], [place] [address]RAD - Ultrasound [id number]#1.00CD:127 [facility] HospitalUS BREAST SPECIMENon 89-43-4649OU BREAST SPECIMENPatient: HARMAN MCLEOD Exam Date: 10/19/2022 : 1940 Gender:F Ordering : DR ILIANA GAGNON . Admission #: [id number] Family : Order #: [id number] CLICK HERE TO VIEW EXAM RADIOLOGY REPORT PROCEDURE: US BREAST SPECIMEN COMPARISON: None. INDICATIONS: Specimen from breast FINDINGS: Breast specimen demonstrates inclusion of the targeted mass as well as the micro clip marker CONCLUSION: Targeted mass and micro clip marker included within the specimen Dictated by: Judson Bauman MD on 10/19/2022 at 11:46 Approved by: Judson Bauman MD on 10/19/2022 at 11:47The [facility] HospitalUS GUIDE LOCAL BREAST RTon 05-46-7517HJ GUIDE LOCAL BREAST RTPatient: HARMAN MCLEOD Exam Date: 10/19/2022 : 1940 Gender:F Ordering : DR ILIANA GAGNON . Admission #: [id number] Family : Order #: [id number] CLICK HERE TO VIEW EXAM RADIOLOGY REPORT [...] clip marker LOCATION: Right breast 9 NEEDLE: Inclinixsandeeps spring hook; 20 g by 5 cm needle and wire. MEDICATION: 6 cubic cm Superficial and deep buffered 1% lidocaine. COMPLICATIONS: None. CONCLUSION: Technically successful hookwire localization. Dictated by: Judson Bauman MD on 10/19/2022 at 09:04 Approved by: Judson Bauman MD on 10/19/2022 at 09:05[facility] SENTINEL NODEon 16-09-6921XP SENTINEL NODEEXAM: US SENTINEL NODE HISTORY: Infiltrating duct carcinoma COMPARISON: None. TECHNIQUE: Grayscale and color ultrasound FINDINGS: Grayscale and color ultrasound demonstrates a 1.6 x 0.8 cm lobular heterogeneous hypoechogenic mass at the 9:00 position. Associated microclip marker from prior biopsy IMPRESSION: Localization of a 1.6 cm right breast mass Electronically authenticated by: JUDSON BAUMAN Date: 2022-10-19 08:59NoBarberton Citizens HospitalRAD - MISCon 41-88-1104H[facility] [id number]#1.00CD:127[facility] AUTO DIFFon 44-17-8630GXOT #0.0 103/ulNormal0.0-0.1[facility]. John Medical CenterComment on above:Performed By: #### HGB #### [facility] [address] [place] [address] Dr. Omid Gonzalezphils/100 WBC (Bld)0.2 %Normal0.2-2.0[facility] Comment on above:Performed By: #### HGB #### [facility] [address] [place] [address] Dr. Omid Maldonado #0.0 103/ulNormal0.0-0.7The [facility] CampusComment on above: Performed By: #### HGB #### [facility] [address] [place] [address] Dr. Omid Batesosinophils/100 WBC (Bld)0.3 %Critically low0.9-7.0The [facility] CampusComment on above:Performed By: #### HGB #### [facility] [address] [place] [address] Dr. Omid Batesrythrocyte distribution width (RBC) [Ratio]13.7 %Xzfmme10.0-15.0 The [facility] CampusComment on above:Performed By: #### HGB #### [facility] [address] [place] [address] Dr. Omid BowdenHematocrit (Bld) [Volume fraction]39.6 %Agjueq62.0-48.0The [facility] CampusComment on above:Performed By: #### HGB #### [facility] [address] [place] [address] Dr. Omid BowdenHemoglobin (Bld) [Mass/Vol]12.3 g/mXNxsscq42.0-16.0The [facility] CampusComment on above:Performed By: #### HGB #### [facility] [address] [place] [address] Dr. Omid Aceves #0.06 10e3/ulCritically high0.00-0.03The [facility] Comment on above:Performed By: #### HGB #### [facility] [address] [place] [address] Dr. Omid BowdenIG %0.5 %Normal0.0-0.5The [facility] CampusComment on above: Performed By: #### HGB #### [facility] [address] [place] [address] Dr. Omid WangMPH #2.9 103/ulNormal1.2-3.8The [facility] CampusComment on above:Performed By: #### HGB #### [facility] [address] [place] [address] Dr. Omid Wangmphocytes/100 WBC (Bld)26.2 %Uedist23.5-60.0The [facility] CampusComment on above:Performed By: #### HGB #### [facility] [address] [place] [address] Dr. Omid Ogden DIFF REQNONormalThe [facility] CampusComment on above: Performed By: #### HGB #### [facility] [address] [place] [address] Dr. Omid Hodgson (RBC) [Entitic mass]28.3 mzUwvqjm56.7-34.0The [facility] CampusComment on above:Performed By: #### HGB #### [facility] [address] [place] [address] Dr. Omid Hodgson (RBC) [Mass/Vol]31.1 g/tPTjqkmg37.9-35.2The [facility] CampusComment on above:Performed By: #### HGB #### [facility] [address] [place] [address] Dr. Omid Hodgson (RBC) [Entitic vol]91.2 cJKanwul50.0-99.0The [facility] CampusComment on above:Performed By: #### HGB #### [facility] [address] [place] [address] Dr. Omid Kaur #0.9 103/ulCritically high0.3-0.8ThOhioHealth Grady Memorial Hospital Comment on above:Performed By: #### HGB #### [facility] [address] [place] [address] Dr. Omid Marquezocytes/100 WBC (Bld)8.3 %Normal1.7-12.0[facility] Comment on above:Performed By: #### HGB #### [facility] [address] [place] [address] Dr. Omid Moreno #7.0 103/ulCritically high1.4-6.5ThOhioHealth Grady Memorial Hospital Comment on above:Performed By: #### HGB #### [facility] [address] [place] [address] Dr. Omid Rizzoutrophils/100 WBC (Bld)64.5 %Zhglde88.0-75.0The [facility]nbrook HospitalComment on above:Performed By: #### HGB #### [facility] [address] [address] [address] Omid Mcdonaldlet mean volume (Bld) [Entitic vol]9.2 fLCritically low 9.5-13.5The [facility] CampusComment on above:Performed By: #### HGB #### [facility] [address] [place] [address] Dr. Omid BowdenPLT346 103/yyJrydfs875-300Kvb [facility] CampusComment on above: Performed By: #### HGB #### [facility] [address] [place] [address] Dr. Omid BowdenRBC4.34 106/ulNormal4.20-5.40The [facility] CampusComment on above:Performed By: #### HGB #### [facility] [address] [place] [address] Dr. Omid BowdenWBC10.9 103/ulNormal4.0-11.0The [facility] CampusComment on above:Performed By: #### HGB #### [facility] [address] [place] [address] Dr. Omid BowdenPROF CHEM 8 (BAS METB)on 88-28-8187Btool gap [Moles/Vol]11.0 mmol/LNormalThe [facility] CampusComment on above:Performed By: #### LIPID, BMP #### [facility] [address] [place] [address] Dr. Omid BowdenCalcium [Mass/Vol]9.6 mg/dLNormal8.5-10.1The [facility] Comment on above:Performed By: #### LIPID, BMP #### [facility] [address] [place] [address] Dr. Omid BowdenChloride [Moles/Vol]99 mmol/MOmelrv03-081TmcUniversity Hospitals St. John Medical Center Comment on above:Performed By: #### LIPID, BMP #### [facility] [address] [place] [address] Dr. Omid BowdenCO2 [Moles/Vol]32.0 mmol/HFmxblx83.0-32.0The [facility] Comment on above:Performed By: #### LIPID, BMP #### [facility] [address] [place] [address] Dr. Omid BowdenCreatinine [Mass/Vol]1.03 mg/dLCritically high0.55-1.02The [facility] CampusComment on above:Performed By: #### LIPID, BMP #### [facility] [address] [address] [address] Omid BatesGFR-AF CITIZEN OF [place]>60Normal>=60The [facility] CampusComment on above:Performed By: #### LIPID, BMP #### [facility] [address] [place] [address] Dr. Omid BatesGFR-NON AF RKGHCQIG85 mL/min/1.93r7Mmgbadtxnh low>=60The [facility] CampusComment on above:Performed By: #### LIPID, BMP #### [facility] [address] [place] [address] Dr. Omid BowdenGlucose [Mass/Vol]94 mg/gBPzkyaw53-631AobUniversity Hospitals St. John Medical Center Comment on above:Performed By: #### LIPID, BMP #### [facility] [address] [place] [address] Dr. Omid BowdenPotassium [Moles/Vol]4.0 mmol/LNormal3.5-5.1The [facility] Comment on above:Performed By: #### LIPID, BMP #### [facility] [address] [place] [address] Dr. Omid BowdenSodium [Moles/Vol]138 mmol/RDpmfbc881-789Txc [facility] Comment on above:Performed By: #### LIPID, BMP #### [facility] [address] [place] [address] Dr. Omid BowdenUrea nitrogen [Mass/Vol]28.0 mg/dLCritically high7.0-18.0The [facility] CampusComment on above:Performed By: #### LIPID, BMP #### [facility] [address] [place] [address] Dr. Omid BowdenUrea nitrogen/Creatinine [Mass ratio]27.2 mg/mgNoBarberton Citizens HospitalComment on above:Performed By: #### LIPID, BMP #### [facility] [address] [place] [address] Dr. Omid BowdenPROTIMEon 90-65-0414OGI Coag (PPP) [Relative time]0.99 {INR} NormalThe [facility] CampusComment on above:Performed By: #### HGB #### [facility] [address] [place] [address] Dr. Omid Damon GUIDELINESSEE BELOWThe Christ HospitalComment on above:Result Comment: DESIRED INR: 2.0 - 3.0 CONDITIONS NOT LISTED BELOW 2.5 - 3.5 FOR PROSTHETIC HEART VALVE REPLACEMENT 2.5 - 3.5 RECURRENT THROMBOSIS Performed By: #### HGB #### [facility] [address] [place] [address] Dr. Omid BowdenPT Coag (PPP) [Time]10.5 sNormal9.0-11.6ThOhioHealth Grady Memorial Hospital Comment on above:Performed By: #### HGB #### [facility] [address] [place] [address] Dr. Omid Vera 76-34-9058wFFG Coag (Bld) [Time]28.6 kNaxnwn45.3-36.2[facility] John Medical CenterComment on above:Performed By: #### HGB #### [facility] [address] [place] [address] Dr. Omid BowdenConsultation Noteon 72-18-6713Ujryqzyvhpyp Note [id number]#1.00CD:127[facility] HospitalINSULINon 61-69-1627Xrydech12.8 uIU/mLNormal2.6-24.9[facility] Comment on above:Performed By: #### LIPID, BMP #### [facility] [address] [place] [address] Dr. Omid BowdenGLYCOHEMOGLOBIN A1Con 77-31-2693KNK RECOMMENDATIONSEE BELOWNormal The [facility] CampusComment on above:Result Comment: ADA RECOMMENDED LIMIT 4.0 - 6.0 ADA THERAPEUTIC TARGET < 7.0 ACTION SUGGESTED > 7.0Performed By: #### HGB #### [facility] [address] [address] [address] Omid BowdenGlucose [Mass/Vol]177 mg/dLNormalThe [facility] CampusComment on above:Performed By: #### HGB #### [facility] [address] [address] [address] Omid BowdenHbA1c (Bld) [Mass fraction]7.8 %Critically high4.5-6.2The [facility] CampusComment on above:Performed By: #### HGB #### [facility] [address] [address] [address] Omid BowdenPROF 14(COMP METB)on 17-02-0930Hpbpnfd [Mass/Vol]3.0 g/dL Critically low3.4-5.0The [facility] CampusComment on above:Performed By: #### CMP ####[facility] [address] [address]Dr. Omid BowdenAlbumin/Globulin [Mass ratio]0.7 {ratio}NormalUniversity Hospitals [facility] Comment on above:Performed By: #### CMP ####[facility] [address] [place] [address]Dr.Omid BowdenALP [Catalytic activity/Vol]73 U/JLjoqls77-528Iqc [facility] CampusComment on above:Performed By: #### CMP ####[facility] [address]ozv[address] [place] [address]Dr. Omid BowednALT [Catalytic activity/Vol]16 U/ERtzgsm09-40Ado [facility] Comment on above:Performed By: #### CMP ####[facility] Njtfdolkhr[address] [place] [address]Dr.Omid BowdenAnion gap [Moles/Vol]11.3 mmol/LNormalThe [facility] CampusComment on above:Performed By: #### CMP ####[facility] [address]wugmxps[address] [place] [address]Dr. Yilan ChangAST [Catalytic activity/Vol]14 U/LCritically jcq75-71Lan [facility] CampusComment on above:Performed By: #### CMP ####[facility] Vmuwlopthz[address] [place], [place] [address]Dr.Yilan ChangBilirubin [Mass/Vol]0.3 mg/dLNormal0.2-1.0The [facility] CampusComment on above:Performed By: #### CMP ####[facility] Tsyzfhhlhn[address] [place], [place] [address]Dr.Yilan ChangCalcium [Mass/Vol]9.5 mg/dLNormal8.5-10.1The [facility] CampusComment on above:Performed By: #### CMP ####[facility] Svtdatgx[address] [place], [place] [address]Dr.Yilan ChangChloride [Moles/Vol]102 mmol/OQpxqxh10-411Nvh [facility] CampusComment on above:Performed By: #### CMP ####[facility] Scbkgmvoel[address] [place], [place] [address]Dr.Yilan ChangCO2 [Moles/Vol]31.1 mmol/ZDpvosl87.0-32.0The [facility] CampusComtrinity [facility] on above:Performed By: #### CMP ####[facility] Voskkvoelr[address] [place], [place] [address]Dr.Yilan ChangCreatinine [Mass/Vol]1.28 mg/dLCritically high0.55-1.02The [facility] CampusComment on above:Performed By: #### CMP ####[facility] Owwgnkshly[address] [place], [place] [address]Dr.Yilan ChangEGFR-AF SFMUJZWU14 mL/min/1.73m2 Critically low>=60The [facility] CampusComment on above:Performed By: #### CMP ####[facility] Gzoruhdfjv[address] [place], [place] [address]Dr. Yilan ChangEGFR-NON AF XFDXVIEJ08 mL/min/1.35f3Ssnbkuauqp low>=60The [facility] CampusComment on above:Performed By: #### CMP ####[facility] Znpskticyl[address] [place] [address]Dr.Yilan ChangGlobulin (S) [Mass/Vol]4.4 g/dLNormalThOhioHealth Grady Memorial HospitalComment on above:Performed By: #### CMP ####[facility] Khlfefxdje[address] [place], [place] [address]Dr.Yilan ChangGlucose [Mass/Vol]103 mg/xEJcqjnz41-408Mdq [facility] Comment on above:Performed By: #### CMP ####[facility] Emetqezisu[address] [place], [place] [address]Dr.Yilan ChangPotassium [Moles/Vol]4.4 mmol/LNormal3.5-5.1The [facility] CampusComment on above:Performed By: #### CMP ####[facility] Kcmiddjlyh[address] [place], [place] [address]Dr. Yilan ChangProtein [Mass/Vol]7.4 g/dLNormal6.4-8.2The [facility] CampusComment on above:Performed By: #### CMP ####[facility] Mynqeyernz[address] [place], [place] [address]Dr.Yilan ChangSodium [Moles/Vol]140 mmol/LNormal 136-145The [facility] CampusComment on above:Performed By: #### CMP ####[facility] Jzkvfgeibo[address] [place], [place] [address]Dr.Yilan ChangUrea nitrogen [Mass/Vol]27.0 mg/dLCritically high7.0-18.0The [facility] CampusComment on above:Performed By: #### CMP ####[facility] Bedxrrkslg[address] [place], [place] [address]Dr.Yilan ChangUrea nitrogen/Creatinine [Mass ratio] 21.1 mg/mgNoBarberton Citizens HospitalComtrinity health [facility] on above:Performed By: #### CMP ####[facility] Izsayqhsrc[address] [place], [place] [address]Dr. Aixalan ChangFormson 40-48-3093Ycdqx [id number]#1.00CD:127NoSelect Medical Specialty Hospital - AkronConsent for Procedure/Surgeryon 23-80-8039Qjbzzxg for Procedure/Surgery [id number]#1.00CD:127NoSelect Medical Specialty Hospital - AkronConsultation Noteon 79-47-1142Kyobcvfdwnsm Note [id number]#1.00CD:127NormSelect Medical Specialty Hospital - Cincinnati NorthConsultation Noteon 10-45-3693Igcmwkqkksim Note [id number]#1.00CD:127Henry [facility] HospitalCovid-19 PCR (CVDTB)on 81-45-0846YOVO-CoV-2 (COVID-19) RNA MARII+probe Ql (Unsp spec)Not detectedNormalNOT DETECTEDThe [facility] CampusComment on above: Result Comment: When diagnostic testing [...] for this test is supported by the [place] of Health and Human Service's declaration that [...] no longer be used).Performed By: #### CVDTBH ####[facility] [address] [place], [place] [address]VqMedardo WhyteUENZA A AND B AGon 06-70-1217TLETLMUHHBYGU BELOWNormal The [facility] CampusComment on above:Result Comment: Negative for Flu A protein angiten. Infection due to Flu A cannot be ruled out. FluA angiten in the sample may be below the detection limit of the test.Performed By: #### INFLUAB ####[facility] [address] [place] [address]Dr. Omid ChangINFLUBNEGHSEE [facility]ike Medical CenterComment on above:Result Comment: Negative for Flu B protein antigen. Infection due to Flu B cannot be ruled out. FluB antigen in the sample may be below the detection limit of the test.Performed By: #### INFLUAB ####[facility] Q[address]ol[address] [place] [address]Dr. Omid ChangINFLUENZA A AGNegativeNormalNEGATIVE SEE COMMENTThe [facility] CampusComment on above:Performed By: #### INFLUAB ####[facility] Aqdxxmlvsd[address] [place], [place] [address]Dr. Omid ChangINFLUENZA B AGNegativeNormalNEGATIVE SEE COMMENTThe [facility] Comment on above:Performed By: #### INFLUAB ####[facility] Iupyyhdekf[address] [place], [place] [address]Dr. Omid BowdenLIPID PROFILEon 09-16-2022 CHOL-HDL RATIO NORMSEE [facility] Medical CenterComment on above:Result Comment: 3.3 - 4.4 LOW RISK 4.4 - 7.1 AVERAGE RISK 7.1 - 11.0 MODERATE RISK >11.0 HIGH RISKPerformed By: #### LIPID, BMP #### [facility] Laboratory [address] [place] [address] Dr. Omid BowdenCholesterol [Mass/Vol]210 mg/dLCritically high<=200The [facility] CampusComment on above:Performed By: #### LIPID, BMP #### [facility] Laboratory [address] [place] [address] Dr. Omid BowdenCholesterol in HDL [Mass/Vol]49 mg/yCPmozxb21-32Fao [facility] CampusComment on above:Performed By: #### LIPID, BMP #### [facility] Laboratory [address] [place] [address] [address] Omid BowdenCholesterol in LDL [Mass/Vol]84.2 mg/dLThe Christ HospitalComment on above:Performed By: #### LIPID, BMP #### [facility] Laboratory [address] [place] [address] Dr. Omid Greeresterol.total/Cholesterol in HDL [Mass ratio]4.3 {ratio} NormalThe [facility] CampusComment on above:Performed By: #### LIPID, BMP #### [facility] Laboratory [address] [place] [address] Dr. Omid Black NORMAL> or = 60 mg/dl - LOW CARDIOVASCULAR RISK <40 mg/dl - HIGH CARDIOVASCULAR RISKThe Christ HospitalComtrinity health [facility] hospital on above:Performed By: #### LIPID, BMP #### [facility] Laboratory [address] [place] [address] Dr. Omid Stewart CALC NORMALSEE BELOWThe Christ HospitalComment on above:Result Comment: <100 mg/dl OPTIMAL 100 - 129 mg/dl NEAR OR ABOVE OPTIMAL 130 - 159 mg/dl BORDERLINE HIGH 160 - 189 mg/dl HIGH >190 mg/dl VERY HIGH Performed By: #### LIPID, BMP #### [facility] Laboratory [address] [place] [address] Dr. Omid BowdenTriglyceride [Mass/Vol]384 mg/dLCritically high<=150[facility] on above:Performed By: #### LIPID, BMP #### [facility] Laboratory [address] [place] [address] Dr. Omid BowdenVLDL CALC76.8 mg/dLNoBarberton Citizens HospitalComment on above: Performed By: #### LIPID, BMP #### [facility] Laboratory [address] [place] [address] Dr. Omid BowdenPROF CHEM 8 (BAS METB)on 91-40-9953Emmas gap [Moles/Vol]10.8 mmol/LNormalUniversity Hospitals St. John Medical CenterComment on above:Performed By: #### LIPID, BMP #### [facility] Laboratory [address] [place] [address] Dr. Omid BowdenCalcium [Mass/Vol]8.8 mg/dLNormal8.5-10.1The [facility] Comment on above:Performed By: #### LIPID, BMP #### [facility] Laboratory [address] [place] [address] Dr. Omid BowdenChloride [Moles/Vol]98 mmol/YRekskh02-541Lkr [facility] Comment on above:Performed By: #### LIPID, BMP #### [facility] Laboratory [address] [place] [address] Dr. Omid BowdenCO2 [Moles/Vol]34.5 mmol/LCritically high21.0-32.0The [facility] CampusComment on above:Performed By: #### LIPID, BMP #### [facility] Laboratory [address] [place] [address] Dr. Omid BowdenCreatinine [Mass/Vol]1.17 mg/dLCritically high0.55-1.02The [facility] CampusComment on above:Performed By: #### LIPID, BMP #### [facility] Laboratory [address] [place] [address] Dr. Anne ChangEGFR-AF BXIDSINJ74 mL/min/1.39q2Sejesasgeg low>=60The [facility] CampusComment on above:Performed By: #### LIPID, BMP #### [facility] Laboratory [address] [place] [address] Dr. Omid BatesGFR-NON AF NKETUQKR90 mL/min/1.40r9Ddybryiwho low>=60The [facility] CampusComment on above:Performed By: #### LIPID, BMP #### [facility] Laboratory [address] [place] [address] Dr. Omid BowdenGlucose [Mass/Vol]193 mg/dLCritically uklq33-115Ssq [facility] CampusComment on above:Performed By: #### LIPID, BMP #### [facility] Laboratory [address] [place] [address] Dr. Omid BowdenPotassium [Moles/Vol]3.3 mmol/LCritically low3.5-5.1The [facility] CampusComment on above:Performed By: #### LIPID, BMP #### [facility] Laboratory [address] [place] [address] [address] Omid BowdenSodium [Moles/Vol]140 mmol/EXvpkvc393-353Elk [facility] Comment on above:Performed By: #### LIPID, BMP #### [facility] Laboratory [address] [place] [address] [address] Omid Lawson nitrogen [Mass/Vol]31.0 mg/dLCritically high7.0-18.0The [facility] CampusComment on above:Performed By: #### LIPID, BMP #### [facility] Laboratory [address] [place] [address] [address] Omid Lawson nitrogen/Creatinine [Mass ratio]26.5 mg/mgNoBarberton Citizens HospitalComment on above:Performed By: #### LIPID, BMP #### [facility] [address] [place] [address] [address] Omid BowdenFacesheeton 23-21-7663Kwsvictej [id number]#1.00CD:[address] [place], [place] [address]Consultation Noteon 28-82-8860Ubxkigkpdcgy Note [id number]#1.00CD:[address] [place] [address] Note-Physicianon 99-94-4412BA Note-Physician [id number]#1.00CD:[address] [place], [place] [address]Lab Reportson 81-81-6574Fyc Reports [id number]#1.00CD:[address] [place], [place] [address]Lab [id number]#1.00CD:[address] [place], [place] [address]Physician Referralon 84-39-9922Pucvwvmje Referral [id number]#1.00CD:127NormalHolzer Medical Center – JacksonC. DIFF PCRon 2C. DIFFICILE PCRNegativeNormalNEGATIVEThe [facility] CampusComment on above:Performed By: #### CDIFPOC ####[facility] Iaxkcaoxtc[address] [place], [place] [address]Dr. Omid ChangCBC AUTO DIFF on 07-49-6053HWXX #0.0 103/ulNormal0.0-0.1The [facility] CampusComment on above: Performed By: #### CBC ####[facility] Ynwkrvbmhx[address] [place], [place] [address]Dr.Yilan ChangBasophils/100 WBC (Bld)0.3 %Normal 0.2-2.0The [facility] CampusComment on above:Performed By: #### CBC ####[facility] Qlqbvgzkyv[address] [place], [place] [address]Dr.Yilan ChangEO # 0.5 103/ulNormal0.0-0.7The [facility] CampusComment on above:Performed By: #### CBC ####[facility] [address] [place], [place] [address]Dr. Yilan ChangEosinophils/100 WBC (Bld)3.2 %Normal0.9-7.0The [facility] Comment on above:Performed By: #### CBC ####[facility] [address]tzwmnjfv[address] [place], [place] [address]Dr.Aixalan ChangErythrocyte distribution width (RBC) [Ratio]14.1 %Fdvrsq40.0-15.0The [facility] CampusComment on above: Performed By: #### CBC ####[facility] [address]qpf[address] [place], [place] [address]Dr.Omid ChangHematocrit (Bld) [Volume fraction]36.1 % Bcykzg55.0-48.0The [facility] CampusComment on above:Performed By: #### CBC ####[facility] Uwokndhvwp[address] [place], [place] [address]Dr. Omid ChangHemoglobin (Bld) [Mass/Vol]11.7 g/dLCritically low12.0-16.0The [facility] CampusComment on above:Performed By: #### CBC ####[facility] [address] [place] [address]Dr.Omid BowdenIG #0.08 10e3/ulCritically high0.00-0.03The [facility] CampusComment on above:Performed By: #### CBC ####[facility] [address]ae[address] [place] [address]DrRadha BowdenIG %0.5 %Normal0.0-0.5The [facility] HospitalComment on above: Performed By: #### CBC ####[facility] [address]qem[address] [place], [place] [address]Dr.Omid WangMPH #1.2 103/ulNormal1.2-3.8The [facility] CampusComment on above:Performed By: #### CBC ####[facility] [address]vuunnuzax[address] [place], [place] [address]Dr.Omid Wanghocytes/100 WBC (Bld)7.5 %Critically low20.5-60.0The [facility] CampusComment on above: Performed By: #### CBC ####[facility] [address]riypddfv[address] [place], [place] [address]Dr.Omid BowdenMANUAL DIFF REQNONormalThe [facility] CampusComment on above:Performed By: #### CBC ####[facility] Igdxxzzocj238[address] [place], [place] [address]Dr.Omid BowdenVA [facility] (RBC) [Entitic mass]29.2 qoKgjtgy52.7-34.0The [facility] CampusComment on above: Performed By: #### CBC ####[facility] Hlfngohrcj[address] [place], [place] [address]Dr.Omid BowdenHC (RBC) [Mass/Vol]32.4 g/dLNormal 29.9-35.2The [facility] CampusComment on above:Performed By: #### CBC ####[facility] Tqjqtzcoug[address] [place], [place] [address]Dr. Omid BowdenV (RBC) [Entitic vol]90.0 wKJuyyag02.0-99.0The [facility] Comment on above:Performed By: #### CBC ####[facility] Dcoipmfhrl[address] [place], [place] [address]Dr.Omid MarquezO #1.0 103/ulCritically high0.3-0.8The [facility] CampusComment on above:Performed By: #### CBC ####[facility] O[address]ifztugz[address] [place], [place] [address]Dr. Omid BowdenMonocytes/100 WBC (Bld)6.8 %Normal1.7-12.0[facility] Comment on above:Performed By: #### CBC ####[facility] Srjnksssjw[address] [place], [place] [address]DrRadha RizzoUT #12.5 103/ulCritically high1.4-6.5The [facility] CampusComment on above:Performed By: #### CBC ####[facility] Kvpjsfqpmr[address] [place], [place] [address]Dr. Omid ChangNeutrophils/100 WBC (Bld)81.7 %Critically high43.0-75.0The [facility] CampusComment on above:Performed By: #### CBC ####[facility] Itxqtfnpmm[address] [place], [place] [address]Dr.Omid BowdenPlatelet mean volume (Bld) [Entitic vol]8.9 fLCritically low9.5-13.5ThOhioHealth Grady Memorial Hospital Comment on above:Performed By: #### CBC ####[facility] Bklexlgngm[address] [place], [place] [address]Dr.Omid BowdenPLT252 103/fvXmzjlx282-683Txb [facility] CampusComment on above:Performed By: #### CBC ####[facility] Iellloabun[address] [place], [place] [address]DrRadha BowdenRBC4.01 106/ul Critically low4.20-5.40The [facility] CampusComment on above:Performed By: #### CBC ####[facility] [address]lnzejdoj[address] [place], [place] [address]DrMedardo Anne WxfhhDDQ41.3 103/ulCritically high4.0-11.0The [facility] CampusComment on above:Performed By: #### CBC ####[facility] [address] [place], [place] [address]LlDr.Yilan Turner 08-37-8231Izxj [Mass/Vol]59.0 ug/bGWrrlvk26.0-170.0The [facility] CampusComment on above:Performed By: #### HGB #### [facility] Laboratory [address] [place], [place] [address] Dr. Omid BowdenMAMMEvelia POST BIOPSY RIGHTon 93-56-4582BHJNN POST BIOPSY RIGHT Patient: HARMAN MCLEOD Exam Date: 08/19/2022 : 1940 Gender:F Ordering : DR MATEUS PERRY . Admission #: [id number] Family : Order #: [id number] CLICK HERE TO VIEW EXAM This report [...] by: Judson Bauman MD on 09/06/2022 at 09:57[facility] PROTIMEon 20-37-5615OMQ Coag (PPP) [Relative time]0.99 {INR}NormalUniversity Hospitals St. John Medical CenterComment on above:Performed By: #### PT, PTT ####[facility] [address] [place], [place] [address]OnDr. Omid BowdenINR GUIDELINES SEE BELOWNormalThOhioHealth Grady Memorial HospitalComment on above:Result Comment: DESIRED INR: 2.0 - 3.0 CONDITIONS NOT LISTED BELOW 2.5 - 3.5 FOR PROSTHETIC HEART VALVE REPLACEMENT 2.5 - 3.5 RECURRENT THROMBOSISPerformed By: #### PT, PTT ####[facility] [address] [place], [place] [address]Ch. Yilan ChangPT Coag (PPP) [Time]10.7 sNormal9.0-11.6The [facility] CampusComment on above:Performed By: #### PT, PTT ####[facility] [address] [place], [place] [address]Kg. Yilan ChangPTTon 23-50-9031jQPA Coag (Bld) [Time]26.0 wScfrkt50.3-36.2The [facility] CampusComment on above:Performed By: #### PT, PTT ####[facility] [address] [place] [address]Dr. Yilan ChangUS VAC ASST BX BRST RT W CLIPon 69-82-7421IW VAC ASST BX BRST RT W CLIPPatient: HARMAN MCLEOD Exam Date: 08/19/2022 : 1940 Gender:F Ordering : DR MATEUS PERRY . Admission #: [id number] Family : Order #: [id number] CLICK HERE TO VIEW EXAM This report [...] by: Judson Bauman MD on 09/06/2022 at 09:55[facility] CULTURE URINEon 34-35-7318IZRMYIY URINEIsolate 1 Enterococcus faecalis 100,000 cfu/mL of [...] >=16 R F Nitrofurantoin <=16 S FNormalThe [facility] CampusComment on above:Performed By: #### URCX ####[facility] [address] [place] [address]Dr. Omid Chaves ADILIA ADMITon 30-42-6133GH [Catalytic activity/Vol] 128 U/KLpodih76-987Ymh [facility] CampusComment on above:Performed By: #### LIPID, BMP #### [facility] Laboratory [address] [place] [address] [address] Omid Sawyer.MB [Mass/Vol]2.88 ng/mLNormal<=3.60[facility] Comment on above:Performed By: #### LIPID, BMP #### [facility] Laboratory [address] [place] [address] [address] Omid GarzaTROP24.1 pg/mLNormal4.0-51.3The [facility] CampusComment on above:Result Comment: CUT-OFF POINTS HAVE BEEN ESTABLISHED BASED ON THE FOURTH UNIVERSAL DEFINITIONS OF MYOCARDIAL INFARCTION. THE UPPER REFERENCE LIMIT (URL) OF TROPONIN, DEFINED THE 99TH PERCENTILE OF cTnI DISTRIBUTION IN A REFERENCE POPULATION, HAS BEEN CONFIRMED THE DECISION THRESHOLD FOR [place] DIAGNOSIS.Performed By: #### LIPID, BMP #### [facility] Laboratory [address] [place] [address] Dr. Omid Allen61 ng/mLNormal9-82The [facility] CampusComment on above: Performed By: #### LIPID, BMP #### [facility] Laboratory [address] [place] [address] Dr. Omid Tolliver AUTO DIFFon 11-15-2904OPZN #0.0 103/ulNormal0.0-0.1The [facility] CampusComment on above:Performed By: #### HGB #### [facility] Laboratory [address] [place] [address] Dr. Omid BowdenBasophils/100 WBC (Bld)0.4 %Normal0.2-2.0[facility] Comment on above:Performed By: #### HGB #### [facility] Laboratory [address] [place] [address] Dr. Omid Maldonado #0.3 103/ulNormal0.0-0.7The [facility] CampusComment on above: Performed By: #### HGB #### [facility] Laboratory [address] [place] [address] Dr. Omid Batesosinophils/100 WBC (Bld)2.6 %Normal0.9-7.0[facility] Comment on above:Performed By: #### HGB #### [facility] Laboratory [address] [place] [address] Dr. Omid Batesrythrocyte distribution width (RBC) [Ratio]14.1 %Whaqdn51.0-15.0 The [facility] CampusComment on above:Performed By: #### HGB #### [facility] Laboratory [address] [place] [address] Dr. Omid BowdenHematocrit (Bld) [Volume fraction]35.5 %Critically low36.0-48.0 The [facility] CampusComment on above:Performed By: #### HGB #### [facility] [address] [address] [address] Omid BowdenHemoglobin (Bld) [Mass/Vol]11.6 g/dLCritically low12.0-16.0The [facility] CampusComment on above:Performed By: #### HGB #### [facility] [address] [place] [address] Dr. Omid Aceves #0.06 10e3/ulCritically high0.00-0.03The [facility] Comment on above:Performed By: #### HGB #### [facility] [address] [place] [address] Dr. Omid Aceves %0.6 %Critically high0.0-0.5The [facility] CampusComment on above:Performed By: #### HGB #### [facility] [address] [place] [address] Dr. Omid Mosley #3.4 103/ulNormal1.2-3.8The [facility] CampusComment on above:Performed By: #### HGB #### [facility] [address] [place] [address] Dr. Omid Bradleyhocytes/100 WBC (Bld)35.5 %Lszdrt75.5-60.0The [facility] CampusComment on above:Performed By: #### HGB #### [facility] [address] [place] [address] Dr. Omid ConcepcionUAL DIFF REQNONormalThe [facility] CampusComment on above: Performed By: #### HGB #### [facility] [address] [place] [address] Dr. Omid Hodgson (RBC) [Entitic mass]29.5 vlIiryzm73.7-34.0The [facility] CampusComment on above:Performed By: #### HGB #### [facility] [address] [place] [address] Dr. Omid Hodgson (RBC) [Mass/Vol]32.7 g/mVXggcpf31.9-35.2The [facility] CampusComment on above:Performed By: #### HGB #### [facility] [address] [address] [address] Omid HodgsonV (RBC) [Entitic vol]90.3 iITcplxn75.0-99.0The [facility] CampusComment on above:Performed By: #### HGB #### [facility] [address] [place] [address] Dr. Omid Kaur #1.0 103/ulCritically high0.3-0.8The [facility] Comment on above:Performed By: #### HGB #### [facility] [address] [place] [address] Dr. Omid Marquezocytes/100 WBC (Bld)10.5 %Normal1.7-12.0[facility] Comment on above:Performed By: #### HGB #### [facility] [address] [place] [address] Dr. Omid Moreno #4.8 103/ulNormal1.4-6.5The [facility] CampusComment on above:Performed By: #### HGB #### [facility] [address] [place] [address] Dr. Omid Rizzoutrophils/100 WBC (Bld)50.4 %Ahkvkg82.0-75.0The [facility] CampusComment on above:Performed By: #### HGB #### [facility] [address] [place] [address] Dr. Omid Mcdonaldlet mean volume (Bld) [Entitic vol]9.1 fLCritically low 9.5-13.5The [facility] CampusComment on above:Performed By: #### HGB #### [facility] [address] [place] [address] Dr. Omid BowdenPLT276 103/wfHxjnql453-900Vid [facility] CampusComment on above: Performed By: #### HGB #### [facility] [address] [place] [address] Dr. Omid BowdenRBC3.93 106/ulCritically low4.20-5.40The [facility] HospitalComment on above:Performed By: #### HGB #### [facility] [address] [address] [address] Omid BowdenWBC9.5 103/ulNormal4.0-11.0[facility] Medical CenterComment on above: Performed By: #### HGB #### [facility] [address] [address] [address] Anne ChangEAshley URINE PROFILEon 21-02-3143Klympwbbb Ql (U)NegativeNormal NEGATIVEUniversity Hospitals St. John Medical CenterComment on above:Performed By: #### GABRIEL OTTOR ####[facility] [address] [id number]. Omid ChangClarity (U)CLEARNormalCLEARUniversity Hospitals St. John Medical CenterComment on above: Performed By: #### GABRIEL OTTOR ####[facility] [address] [address]Dr. Omid ChangColor (U)LT. YELLOWNormalYELLOWUniversity Hospitals St. John Medical CenterComment on above:Performed By: #### ISSAC OTTO ####[facility] [address] [address]DrMedardo Trejo A micrscopic examination will be performed if indicated.NormalThe [facility] CampusComment on above:Performed By: #### GABRIEL OTTOR ####[facility] [address] [id number]. Omid ChangGlucose Ql (U) NegativeNormalNEGATIVEUniversity Hospitals St. John Medical CenterComment on above:Performed By: #### GABRIEL OTTOR ####[facility] [address] [address]DrMedardo Anne ChangHemoglobin Ql (U)NegativeNormalNEGATIVECleveland Clinic Marymount Hospital on above:Performed By: #### CLARITA ERUR ####[facility] [address] [id number]. Aixalan ChangKetones Ql (U) NegativeNormalNEGATIVEOhiohealth Marion General Hospitalue HospitalComment on above:Performed By: #### GABRIEL OTTOR ####[facility] [address] [place], [place] [address]Rq. Omid BowdenLEUKOCYTESTRACEAbnormalNEGATIVEThe [facility]nbrook HospitalComment on above:Performed By: #### GABRIEL OTTOR ####[facility] [address] [place], [place]Dr. Omid BowdenNitrite Ql (U)NegativeNormal NEGATIVEThe [facility]nbrook HospitalComment on above:Performed By: #### GABRIEL OTTOR ####[facility] [address] [address]Dr. Omid BowdenpH (U)6.0 [pH]Normal5-9The [facility] CampusComment on above: Performed By: #### GABRIEL OTTOR ####[facility] [address] [address]Dr. Omid BowdenSPEC GRAVITY1.591Onhksy1.005-<=1.025The [facility] CampusComment on above:Performed By: #### ISSAC OTTO ####[facility] [address] [address]Dr. Omid BowdenUA PROTEINNegativeNormalNEGATIVE/ TRACEThe [facility]nbrook HospitalComment on above: Performed By: #### ISSAC OTTO ####[facility] [address] [id number]. Omid BowdenUR MICRO INDINDICATEDNormalThe [facility]nbrook HospitalComment on above:Performed By: #### GABRIEL OTTOR ####[facility] [address] [address]Dr. Omid BowdenUrobilinogen Qn (U)0.2 {Jose'U}/dLNormal0.2 - 1.0The [facility]nbrook HospitalComment on above: Performed By: #### GABRIEL OTTOR ####[facility] [address] [address]DrMedardo Cerda BLD IMMUNO SCREENon 84-26-4739XTBBEX BLOODNegativeNormalNEGATIVEThe [facility] CampusComment on above:Performed By: #### OBSCRN #### [facility] [address] [address] [address] Omid BowdenPROF CHEM 8 (BAS METB)on 13-85-1280Lmqks gap [Moles/Vol]5.5 mmol/LNormalThe [facility] CampusComment on above:Performed By: #### LIPID, BMP #### [facility] [address] [place] [address] Dr. Omid BowdenCalcium [Mass/Vol]8.6 mg/dLNormal8.5-10.1The [facility] Comment on above:Performed By: #### LIPID, BMP #### [facility] [address] [place] [address] Dr. Omid BowdenChloride [Moles/Vol]103 mmol/DThgdul06-485Uos [facility] Comment on above:Performed By: #### LIPID, BMP #### [facility] [address] [place] [address] Dr. Omid BowdenCO2 [Moles/Vol]31.8 mmol/LMtikbb10.0-32.0[facility] Comment on above:Performed By: #### LIPID, BMP #### [facility] [address] [place] [address] Dr. Omid BwodenCreatinine [Mass/Vol]0.99 mg/dLNormal0.55-1.02The [facility] CampusComment on above:Performed By: #### LIPID, BMP #### [facility] [address] [place] [address] Dr. Anne ChangEGFR-AF CITIZEN [place]>60Normal>=60The [facility] CampusComment on above:Performed By: #### LIPID, BMP #### [facility] [address] [place] [address] Dr. Omid BatesGFR-NON AF EKQIQIYX07 mL/min/1.87e9Pdxsfsmlhj low>=60The [facility] CampusComment on above:Performed By: #### LIPID, BMP #### [facility] [address] [address] [address] Omid BowdenGlucose [Mass/Vol]112 mg/dLCritically jyrk78-678Sve [facility] on above:Performed By: #### LIPID, BMP #### [facility] [address] [address] [address] Omid BowdenPotassium [Moles/Vol]3.3 mmol/LCritically low3.5-5.1The [facility] CampusComment on above:Performed By: #### LIPID, BMP #### [facility] [address] [address] [address] Omid BowdenSodium [Moles/Vol]137 mmol/OVhdajc921-902Hgy [facility] Comment on above:Performed By: #### LIPID, BMP #### [facility] [address] [address] [address] Omid BowdenUrea nitrogen [Mass/Vol]20.0 mg/dLCritically high7.0-18.0The [facility] on above:Performed By: #### LIPID, BMP #### [facility] [address] [address] [address] Omid Lawson nitrogen/Creatinine [Mass ratio]20.2 mg/mgNoBarberton Citizens HospitalComtrinity health [facility] on above:Performed By: #### LIPID, BMP #### [facility] [address] [address] [address] Omid Busch MICROSCOPIC ONLYon 70-93-6300AWJFPJWZZTTXDObnaamhfVFLW SEEN The [facility] CampusComtrinity health [facility] hospital on above:Performed By: #### CLARITA ERUR ####[facility] [address] [id number]. Omid Crockettcteria identified Cx Nom (U)INDICATEDThe [facility] Comment on above:Performed By: #### CLARITA, ERUR ####[facility] [address] [place], [place]Dr. Omid Odom SEEN NormalNONE SEENThe Lindy HospitalComment on above:Performed By: #### CLARITA, ERUR ####[facility] [address] [phone]. Omid KalCrystals LM Nom (Urine sed)NONE SEENNormalNONE SEENThe [facility] CampusComment on above:Performed By: #### CLARITA, ERUR ####[facility] [address] [phone]. Omid ChangEpithelial cells LM Ql (Urine sed)FEWAbnormalNONE SEEN /RAREThe [facility] CampusComment on above:Performed By: #### CLARITA ERUR ####[facility] [address] [id number]. Omid BowdenMUCOUSNONE SEENNormalNONE SEENThe [facility] CampusComment on above:Performed By: #### CLARITA ERUR ####[facility] [address] [id number]. Omid BowdenRBC0-2 Normal0-2The [facility] CampusComment on above:Performed By: #### CLARITA ERUR ####[facility] [address] [id number]. Omid BowdenWclrcFYU23-05MxqtpkogRFVP SEENThe [facility] CampusComment on above: Performed By: #### CLARITA, ERUR ####[facility] [address] [id number]. Omid BowdenXR CHEST 1 Von 92-53-8750SE CHEST 1 V CHEST X-RAY HISTORY: Chest pain COMPARISON: 04/06/2021 TECHNIQUE: 1 view chest is submitted for review. FINDINGS: The lungs are adequately expanded without evidence for acute infiltrate or effusion. The cardiac silhouette is enlarged. Pulmonary vascularity is unremarkable. Osseous structures are within expected limits for patients age. . IMPRESSION: Cardiomegaly. Electronically authenticated by: HILL BAILON Date: 2022-08-14 00:46NoBarberton Citizens HospitalCovid-19 PCR (CVDTBH)on 18-12-7882UOLO-CoV-2 (COVID-19) RNA MARII+probe Ql (Unsp spec)Not detectedNormalNOT DETECTEDThe [facility] Comment on above:Result Comment: When diagnostic testing [...] for this test is supported by the [place] of [employer] and Human Service's declaration that [...] longer be used).Performed By: #### CVDTBH #### [facility] [address] [place] [address] Dr. Omid BowdenMG MAMM RT DIAG FUon 04-04-8362SG MAMM RT DIAG FUPatient: HARSHA HARMAN L. Exam Date: 08/08/2022 : 1940 Gender:F Ordering : DR MATEUS PERRY . Admission #: [id number] Family : Order #: [id number] CLICK HERE TO VIEW EXAM RADIOLOGY REPORT [...] uterine cancer at age 39. LOCATION: The [facility] BREAST COMPOSITION: Scattered areas fibroglandular density. FINDINGS: [...] by: Alfonso George M.D. on 08/08/2022 at 15:28The [facility] HospitalPROF CHEM 8 (BAS METB)on 42-07-7764Tkzoc gap [Moles/Vol]9.3 mmol/LNormal The [facility] CampusComment on above:Performed By: #### BMP #### [facility] [address] [address] [address] Omid BowdenCalcium [Mass/Vol]8.1 mg/dLCritically low8.5-10.1The [facility] CampusComment on above:Performed By: #### BMP #### [facility] [address] [place] [address] Dr. Omid BowdenChloride [Moles/Vol]100 mmol/NKlabkq87-235RmuUniversity Hospitals St. [facility] Comment on above:Performed By: #### BMP #### [facility] [address] [address] [address] Omid BowdenCO2 [Moles/Vol]31.9 mmol/QAqlnqq47.0-32.0[facility] Comment on above:Performed By: #### BMP #### [facility] [address] [address] [address] Omid BowdenCreatinine [Mass/Vol]1.25 mg/dLCritically high0.55-1.02The [facility] CampusComment on above:Performed By: #### BMP #### [facility] [address] [address] [address] Omid BatesGFR-AF TRWSVQWU66 mL/min/1.15m0Psihfxpvac low>=60The [facility] CampusComment on above:Performed By: #### BMP #### [facility] [address] [address] [address] Omid BatesGFR-NON AF HZYWVSDQ55 mL/min/1.52d8Cbuqmrvzqy low>=60The [facility] CampusComment on above:Performed By: #### BMP #### [facility] [address] [address] [address] Omid BowdenGlucose [Mass/Vol]215 mg/dLCritically lnpx55-608Zjs [facility] CampusComment on above:Performed By: #### BMP #### [facility] [address] [place] [address] Dr. Omid BowdenPotassium [Moles/Vol]3.2 mmol/LCritically low3.5-5.1The [facility] CampusComment on above:Performed By: #### BMP #### [facility] [address] [place] [address] Dr. Omid BowdenSodium [Moles/Vol]138 mmol/AMvthrf165-265Mrh [facility] Comment on above:Performed By: #### BMP #### [facility] [address] [place] [address] Dr. Omid BowdenUrea nitrogen [Mass/Vol]32.0 mg/dLCritically high7.0-18.0The [facility] CampusComment on above:Performed By: #### BMP #### [facility] [address] [place] [address] Dr. Omid Lawson nitrogen/Creatinine [Mass ratio]25.6 mg/mgNormalThe [facility] CampusComment on above:Performed By: #### BMP #### [facility] [address] [place] [address] Dr. Omid BowdenUS BREAST RIGHT LIMITEDon 91-44-5542TK BREAST RIGHT LIMITED Patient: HARMAN MCLEOD Exam Date: 08/08/2022 : 1940 Gender:F Ordering : DR MATEUS PERRY . Admission #: [id number] Family : Order #: [id number] CLICK HERE TO VIEW EXAM RADIOLOGY REPORT [...] uterine cancer at age 39. LOCATION: The [facility] BREAST COMPOSITION: Scattered areas fibroglandular density. FINDINGS: [...] by: Alfonso George M.D. on 08/08/2022 at 15:28NoBarberton Citizens HospitalCALCIUMon 90-35-9618Ezkinfv [Mass/Vol]8.9 mg/dLNormal8.5-10.1The [facility] CampusComment on above:Performed By: #### HGB #### [facility] [address] [place] [address] Dr. Omid VuINEon 15-86-7819Tszsbgpyvi [Mass/Vol]1.19 mg/dLCritically high0.55-1.02The [facility] CampusComment on above:Performed By: #### HGB #### [facility] [address] [place], [place] [address] Dr. Anne ChangEGFR-AF APRRFXJI90 mL/min/1.63i0Baqptcpylw low>=60The [facility] CampusComment on above:Performed By: #### HGB #### [facility] [address] [place], [place] [address] Dr. Anne ChangEGFR-NON AF MFECEJEB55 mL/min/1.84h4Wotrbddcvd low>=60The [facility] CampusComment on above:Performed By: #### HGB #### [facility] [address] [place], [place] [address] Dr. Omid BowdenMG MAMM SCREEN 3D DAVID CADon 19-76-9369MG MAMM SCREEN 3D DAVID CAD Patient: HARMAN MCLEOD Exam Date: 07/19/2022 : 1940 Gender:F Ordering : DR MATEUS PERRY . Admission #: [id number] Family : Order #: [id number] CLICK HERE TO VIEW EXAM RADIOLOGY REPORT [...] uterine cancer at age 39. LOCATION: [facility] BREAST COMPOSITION: Scattered areas fibroglandular density. FINDINGS: [...] by: Judson Bauman MD on 07/20/2022 at 07:33The [facility] HospitalXR DEXA BONE DENSITYon 65-57-1077TX DEXA BONE DENSITYEXAMINATION: XR DEXA BONE DENSITY, [...] Electronically authenticated by: JUDSON BAUMAN Date: 2022-07-19 20:17The [facility] HospitalCALCIUM, IONIC (POC)on 62-17-3460FAK Ionized Calcium1.21 mmol/L 1.15 - 1.33 mmol/LBON [facility]IONAL MEDICAL CENTERKogent Surgical HEALTHCHLORIDE (POC)on 12-32-1187Itdnkjoj [Moles/Vol]103 mmol/L98 - 107 mmol/LBON [facility]A [facility]IONAL MEDICAL CENTERTapImmuneCreatinine W/GFR Point of Careon 49-12-8660Xdeefpbvmp [Mass/Vol]0.93 mg/dL0.51 - 1.19 mg/dLBON COALINGA REGION[facility] MEDICAL CENTERKogent Surgical [facility]PITALeGFR, POCmL/min/1.31g3APA [facility]TH CAMPUSComment on above: Effective Jun 13, 2022 These [...] affects renal tubular secretion. Lactic Acid, POCon 79-16-4954BRB Lactic Acid1.56 mmol/LHigh0.56 - 1.39 mmol/LBON [facility] CENTERKogent Surgical [facility]OSPITALNo Panel Informationon 77-57-3507Jhufxcwjplhiva and review of laboratory resultsAbnormalBON [facility]PO Glucose Fingerstickon 21-01-2035Ugdrsjh [Mass/Vol]135 mg/mUDeam72 - 105 mg/dL CENTRA HEALTHInterpretation and review of laboratory resultsAbnormal BON [facility]TH CAMPUSBON [facility] S[facility]TH CAMPUSPOCT Glucoseon 16-99-2982Amorybv [Mass/Vol]147 mg/jBHggo34 - 100 mg/dLBON KET[facility] HEALTH DAYTONCT urea (BUN)on 55-54-9444Tggt nitrogen [Mass/Vol]20 mg/dL8 - 26 mg/dLBON [facility] POTASSIUM (POC)on 13-03-4451Tvzzypuvy [Moles/Vol]3.7 mmol/L3.5 - 4.5 mmol/LBON [facility] SOUTH CAMPUSSODIUM (POC)on 07-35-8396Xvgaoh [Moles/Vol]141 mmol/L138 - 146 mmol/LBON [facility]TH CAMPUSPROF CHEM 8 (BAS METB)on 28-15-9101Prprb gap [Moles/Vol]9.0 mmol/LNormalThe [facility] CampusComment on above:Performed By: #### BMP ####[facility] [address] [address]Dr.Yilan ChangCalcium [Mass/Vol]9.0 mg/dLNormal8.5-10.1The [facility] CampusComment on above:Performed By: #### BMP ####[facility] [address] [place], [place] [address]Dr.Yilan ChangChloride [Moles/Vol]98 mmol/EEpcmqp16-171Zzm [facility] CampusComment on above:Performed By: #### BMP ####[facility] [address] [address]Dr.Yilan ChangCO2 [Moles/Vol]33.2 mmol/LCritically high21.0-32.0The [facility] CampusComment on above:Performed By: #### BMP ####[facility] [address] [address]Dr.Yilan ChangCreatinine [Mass/Vol]1.32 mg/dLCritically high0.55-1.02The [facility] CampusComment on above:Performed By: #### BMP ####[facility] [address] [address]Dr.Yilan ChangEGFR-AF DUTNNSLT05 mL/min/1.73m2 Critically low>=60The [facility] CampusComment on above:Performed By: #### BMP ####[facility] [address] [place], [place] [address]Dr. Yilan ChangEGFR-NON AF CBVKVCOQ77 mL/min/1.55n9Nljtwfgtry low>=60The [facility] CampusComment on above:Performed By: #### BMP ####[facility] [address] [place], [place] [address]Dr.Yilan ChangGlucose [Mass/Vol]220 mg/dLCritically lhws40-961Cib [facility] CampusComment on above: Performed By: #### BMP ####[facility] [address] [place], [place] [address]Dr.Yilan ChangPotassium [Moles/Vol]3.2 mmol/L Critically low3.5-5.1The [facility] CampusComment on above:Performed By: #### BMP ####[facility] [address] [place], [place] [address]Dr. Yilan ChangSodium [Moles/Vol]137 mmol/VEjceio158-060Key [facility] CampusComment on above:Performed By: #### BMP ####[facility] [address] [place], [place] [address]Dr.Yilan ChangUrea nitrogen [Mass/Vol]31.0 mg/dL Critically high7.0-18.0The [facility] CampusComment on above:Performed By: #### BMP ####[facility] [address] [place], [place] [address]Dr. Yilan ChangUrea nitrogen/Creatinine [Mass ratio]23.5 mg/mgNormalThe [facility] CampusComment on above:Performed By: #### BMP ####[facility] [address] [place], [place] [address]Dr.Yilan ChangECHOCARDIO M/2D COMPLETEon 35-06-7149MJALKRNWMR M/2D COMPLETEPatient: HARMAN MCLEOD Exam Date: 04/12/2022 : 1940 Gender:F Ordering : SONALI MCKINNEY [facility] Admission #: [id number] Family : Order #: [id number] CLICK HERE TO VIEW EXAM ECHOCARDIOGRAM REPORT [...] by: Bertram Keyes M.D. on 04/12/2022 at 19:15NormalUniversity Hospitals St. John Medical CenterPROF CHEM 8 (BAS METB)on 39-48-4438Gpzxd gap [Moles/Vol]12.4 mmol/L NormalUniversity Hospitals St. John Medical CenterComment on above:Performed By: #### BMP ####[facility] Bfr[address] [place], [place] [address]Dr.Omid Bowden Calcium [Mass/Vol]9.1 mg/dLNormal8.5-10.1The [facility] CampusComment on above: Performed By: #### BMP ####[facility] [address] [place] [address]Dr.Yilan ChangChloride [Moles/Vol]100 mmol/LNormal 98-107The [facility] CampusComment on above:Performed By: #### BMP ####[facility] Qcvafcoxls[address] [place], [place] [address]Dr.Yilan ChangCO2 [Moles/Vol]33.0 mmol/LCritically high21.0-32.0The [facility] CampusComment on above:Performed By: #### BMP ####[facility] H[address] [place], [place] [address]Dr.Yilan ChangCreatinine [Mass/Vol]1.15 mg/dL Critically high0.55-1.02The [facility] CampusComment on above:Performed By: #### BMP ####[facility] V[address] [place], [place] [address]Dr.Yilan ChangEGFR-AF VMNRCHWB45 mL/min/1.24a6Iqmcwutcqp low>=60The [facility] CampusComment on above:Performed By: #### BMP ####[facility] [address] [place], [place] [address]Dr.Yilan ChangEGFR-NON AF HLBEBLMM14 mL/min/1.89z3Nmfpqxruvw low>=60The [facility] CampusComment on above: Performed By: #### BMP ####[facility] [address] [place], [place] [address]Dr.Yilan ChangGlucose [Mass/Vol]167 mg/dLCritically knpz96-661Brh [facility] CampusComment on above:Performed By: #### BMP ####[facility] Pr[address]xk[address] [place], [place] [address]Dr. Yilan ChangPotassium [Moles/Vol]3.4 mmol/LCritically low3.5-5.1The [facility] CampusComment on above:Performed By: #### BMP ####[facility] [address] [place], [place] [address]Lg.Omid ChangSodium [Moles/Vol]142 mmol/QKetqwm807-081Rqv [facility] CampusComment on above: Performed By: #### BMP ####[facility] [address] [place], [place] [address]Sa.Aixalan ChangUrea nitrogen [Mass/Vol]23.0 mg/dL Critically high7.0-18.0The [facility] CampusComment on above:Performed By: #### BMP ####[facility] [address] [place], [place] [address]Kn. Omid ChangUrea nitrogen/Creatinine [Mass ratio]20.0 mg/mgThe Christ HospitalComment on above:Performed By: #### BMP ####[facility] [address] [place], [place] [address]Df.Omid TiwariMATIC COVID-19 ANTIGENon 89-81-3819ACK [facility] Comment on above:Result Comment: This test [...] revoked sooner.Performed By: #### LIPID, BMP #### [facility] Laboratory [address] [place] [address] [address] Omid Gonzales-CoV-2 (COVID-19) RNA MARII+probe Ql (Unsp spec)Positive Critically abnormalNEGATIVEThe [facility] CampusComment on above:Performed By: #### LIPID, BMP #### [facility] Laboratory [address] [place] [address] Dr. Omid BowdenHEMOGLOBINon 69-78-7767Ahhdvplpwi (Bld) [Mass/Vol]12.3 g/dLNormal 12.0-16.0The [facility] CampusComment on above:Performed By: #### HGB #### [facility] Laboratory [address] [place] [address] Dr. Omid Godinez 70-91-4432Oocdkwuzqxy peptide B (Bld) [Mass/Vol]598.0 pg/mL Normal<=1,800.0The [facility] CampusComment on above:Performed By: #### LIPID, BMP #### [facility] Laboratory [address] [place] [address] Dr. Omid BowdenPROF CHEM 8 (BAS METB)on 56-02-8765Wtvcw gap [Moles/Vol]11.9 mmol/LNormalThe [facility] CampusComment on above:Performed By: #### LIPID, BMP #### [facility] Laboratory [address] [place] [address] Dr. Omid BowdenCalcium [Mass/Vol]9.1 mg/dLNormal8.5-10.1The [facility] Comment on above:Performed By: #### LIPID, BMP #### [facility] Laboratory [address] [place] [address] Dr. Omdi BowdenChloride [Moles/Vol]98 mmol/DSwdbug78-997Rzp [facility] Comment on above:Performed By: #### LIPID, BMP #### [facility] Laboratory [address] [place] [address] Dr. Omid BowdenCO2 [Moles/Vol]33.2 mmol/LCritically high21.0-32.0The [facility] CampusComment on above:Performed By: #### LIPID, BMP #### [facility] Laboratory [address] [place] [address] Dr. Omid BowdenCreatinine [Mass/Vol]1.28 mg/dLCritically high0.55-1.02The [facility] CampusComment on above:Performed By: #### LIPID, BMP #### [facility] [address] [address] [address] Anne ChangEGFR-AF PEZLTJDB49 mL/min/1.40n5Fvwtsfhjzg low>=60The [facility] CampusComment on above:Performed By: #### LIPID, BMP #### [facility] Laboratory [address] [address] [address] Anne ChangEGFR-NON AF PLGPRMTP65 mL/min/1.06a7Ctdltblned low>=60The [facility] CampusComment on above:Performed By: #### LIPID, BMP #### [facility] Laboratory [address] [address] [address] Omid BowdenGlucose [Mass/Vol]182 mg/dLCritically kfli18-279Enp [facility] CampusComment on above:Performed By: #### LIPID, BMP #### [facility] Laboratory [address] [address] [address] Omid BowdenPotassium [Moles/Vol]3.1 mmol/LCritically low3.5-5.1The [facility] CampusComment on above:Performed By: #### LIPID, BMP #### [facility] [address] [address] [address] Omid BowdenSodium [Moles/Vol]140 mmol/VHlpcyx256-719Wwi [facility] Comment on above:Performed By: #### LIPID, BMP #### [facility] [address] [address] [address] Omid BowdenUrea nitrogen [Mass/Vol]30.0 mg/dLCritically high7.0-18.0The [facility] CampusComment on above:Performed By: #### LIPID, BMP #### [facility] Laboratory [address] [place] [address] Dr. Omid BowdenUrea nitrogen/Creatinine [Mass ratio]23.4 mg/mgNormalThe [facility] CampusComment on above:Performed By: #### LIPID, BMP #### [facility] Laboratory [address] [address] [address] Omid BowdenXR CHEST 2 Von 32-86-9767RV CHEST 2 VEXAMINATION: XR CHEST 2 V [...] Electronically authenticated by: ALFONSO GEORGE Date: 2022-02-09 11:[address] [place], [place] [address]No Panel Informationon 40-43-2477Thphs HealthPOCT Glucoseon 93-96-5883Nrccjtj [Mass/Vol]196 mg/ePDktu58 - 100 mg/dLAshtabula General Hospital [employer] Interpretation and review of laboratory resultsAbnormalMercy Health St. Joseph Warren HospitalPOTASSIUM (POC)on 09-17-2801Oqpfuzjva [Moles/Vol]3.7 mmol/L3.5 - 4.5 mmol/LMohiohealth o'bleness hospitaly Health TYPE AND SCREENon 47-76-5685JVI/RhPositiveMercy Health St. Joseph Warren HospitalArm Band NumberBE [id number] [facility] HealthExpiration Date12/16/2021,2359[facility] Nordic TeleComMercy Health St. Joseph Warren HospitalEKG 12 lead Ordered By: Dennis Garcia on 67-73-8315Zyicok Qbpn38ULOQcbvn Health Work Phone: p Bagv00qhwtdhmYflwf Health Work Phone: p-R Njoklhgm158 [employer] Work Phone: Q-T Kbekspkk789 [employer] Work Phone: QRS Ednwnahq640 [employer] [facility] Work Phone: QTc Calculation (Yaritza)488 [employer] Work Phone: r Dezm66spgdecgOkvyl Health Work Phone: T Ewwl003kkpblogEyihk Health Work Phone: Ventricular Smyy23TXMXjehb Health Work Phone: [facility]sey Memorial HospitalSino Gas & Energy Work Phone: eKG 12 leadon 61-33-2127Gqmtf rhythm with Premature atrial complexes Left bundle branch block Abnormal ECG When compared with ECG of 12-MAY-2021 12:39, T wave inversion now evident in Inferior leadsMHPN STV Dennis Kauffman MD - 12/07/2021 Sinus rhythm with Premature atrial complexes Left bundle branch block Abnormal ECG When compared with ECG of 12-MAY-2021 12:39, T wave inversion now evident in Inferior leadsMercy Health St. [facility] Hospital Work Phone: cbc auto differentialon 32-84-1219Urlbfjwh Eos #0.[address] [facility] Warren HospitalAbsolute Immature Granulocyte0.12[facility] Warren HospitalAbsolute Lymph #3.[address] [facility] Warren HospitalAbsolute Kimball #1.22HighMercy Health St. Joseph Warren HospitalBasophils (Bld) [#/Vol]0.05 10*3/uLMercy Health St. Joseph Warren HospitalBasophils/100 WBC (Bld)0 %0 - 2 %[facility] Warren HospitalEosinophils/100 WBC (Bld)1 %1 - 4 %[facility] Warren HospitalHematocrit (Bld) [Volume fraction]38.4 %36.3 - 47.1 %[facility] Warren HospitalHemoglobin.gastrointestinal spec 1 Ql (Stl)12.2 g/dL11.9 - 15.1 g/dLMercy Health St. Joseph Warren HospitalImmature granulocytes/100 WBC (Bld)1 %[address] Interpretation and review of laboratory resultsAbnormalMercy Health St. [facility] Hospital Lymphocytes/100 WBC (Bld)25 %24 - 43 %[facility] HospitalH (RBC) [Entitic mass]29.9 pg25.2 - 33.5 pgOhioHealth O'Bleness HospitalHC (RBC) [Mass/Vol]31.8 g/dL28.4 - 34.8 g/dLOhioHealth O'Bleness HospitalV (RBC) [Entitic vol]94.1 fL82.6 - 102.[address] Warren HospitalMonocytes/100 WBC (Bld)10 %3 - 12 %[facility] Warren HospitalNRBC Automated0.00.[address] Joseph Warren Hospital Platelet distribution width (Bld) [Ratio]14.5 %High11.8 - 14.4 %[facility] Platelet mean volume (Bld) [Entitic vol]10.1 fL8.1 - 13.[address] [facility] Platelets (Bld) [#/Vol]266 10*3/uLMer HealthRBC (Bld) [#/Vol]4.08 10*6/uL3.95 - 5.11 m/uLAshtabula General Hospital HealthRBC (Bld) [#/Vol]ANISOCYTOSIS PRESENTMercy Health St. [facility] Hospital Segmented neutrophils/100 WBC (Bld)63 %36 - 65 %[facility] Warren HospitalSegs Absolute7.[address] [facility] Warren HospitalWBC (Bld) [#/Vol]12.6 10*3/uLHighAurora Medical Center Oshkosh Comprehensive Metabolic Panel w/ Reflex to MGon 05-56-0674Rtlnamx [Mass/Vol]3.7 g/dL3.5 - 5.2 g/dLAshtabula General Hospital HealthAlbumin/Globulin [Mass ratio]1.1 {ratio}[facility] HospitalALP (Bld) [Catalytic activity/Vol]93 U/L35 - 104 U/LMercy HealthALT [Catalytic activity/Vol]12 U/L5 - 33 U/LMercy HealthAnion gap [Moles/Vol]14 mmol/L9 - 17 mmol/LMercy HealthAST [Catalytic activity/Vol]12 U/L<32[facility] Bilirubin [Mass/Vol]0.25 mg/dLLow0.3 - 1.2 mg/dLAshtabula General Hospital HealthCalcium [Mass/Vol] 9.1 mg/dL8.6 - 10.4 mg/dLAshtabula General Hospital HealthChloride [Moles/Vol]95 mmol/LLow98 - 107 mmol/LMercy HealthCO2 [Moles/Vol]30 mmol/L20 - 31 mmol/LMercy HealthCreatinine [Mass/Vol]1.07 mg/dLHigh0.50 - 0.90 mg/dLAshtabula General Hospital HealthFree PSA/Total PSA [Mass fraction]7.2 g/dL6.4 - 8.3 g/dLAshtabula General Hospital HealthGFR Zigqapcp03 mL/minLow>60 [facility] HealthGFR Non- Ujlkhnet89 mL/minLow>60[facility] HealthGFR/1.73 sq M.predicted MDRD (S/P/Bld) [Vol rate/Area][facility] St[facility] Joseph Warren HospitalComment on above:Average GFR for 70 or more years old: 75 mL/min/1.73sq m Chronic Kidney Disease: <60 mL/min/1.73sq m Kidney failure: <15 mL/min/1.73sq m eGFR calculated using average adult body mass. Additional eGFR calculator available at: http://www.Collisionable/multiple_crcl_2012.htm Glucose [Mass/Vol]188 mg/pVMkoa63 - 99 mg/dLAshtabula General Hospital HealthInterpretation and review of laboratory resultsAbnormalMer HealthPotassium [Moles/Vol]3.3 mmol/L Low3.7 - 5.3 mmol/LMercy HealthSodium [Moles/Vol]139 mmol/L135 - 144 mmol/LMercy HealthUrea nitrogen (BldV) [Mass/Vol]22 mg/dL8 - 23 mg/dLKettering Health Springfield HealthMagnesiumon 16-69-6999Ezxznisro [Mass/Vol]1.6 mg/dL1.6 - 2.6 mg/dLAurora Medical Center OshkoshNo Panel Informationon 78-90-0404Ep acute process. [facility] CONSOLIDATEDEXAMINATION: TWO XRAY VIEWS OF THE [...] The osseous structures are without acute process. [facility] Kael Black MD - 12/06/2021 EXAMINATION: [...] without acute process. IMPRESSION: No acute process. [employer] Phone: radiology Study observation (narrative)[employer] Phone: No Panel InformationOrdered By: Kael Freeman on 04-67-4226EohqaAgorafy Phone: Creatinine W/GFR Point of CareOrdered By: Kin Abarca on 77-22-1297Ioxcmzoxco [Mass/Vol]0.89 mg/dL0.51 - 1.19 mg/dLAgorafy Phone: GFR Non->60>60 mL/minGuernsey Memorial HospitalRoom Phone: GFR/1.73 sq M.predicted MDRD (S/P/Bld) [Vol rate/Area] mL/min/{1.73_m2}>60 mL/minGuernsey Memorial HospitalRoom Phone: GFR/1.73 sq M.predicted MDRD (S/P/Bld) [Vol rate/Area] [employer] Phone: comment on above:Average GFR for 70 or more years old: 75 mL/min/1.73sq m Chronic Kidney Disease: <60 mL/min/1.73sq m Kidney failure: <15 mL/min/1.73sq m eGFR calculated using average adult body mass. Additional eGFR calculator available at: http://www.Collisionable/multiple_crcl_2012.htm No Panel InformationOrdered By: Kin Abarca on 86-17-7896Mlxqf Health Work Phone: pOC Glucose FingerstickOrdered By: Kin Abarca on 27-08-5990Tpqtkfh [Mass/Vol]163 mg/rLAdlm26 - 105 mg/dLGuernsey Memorial HospitalRoom Phone: Interpretation and review of laboratory results AbnormalGuernsey Memorial HospitalRoom Phone: [facility] HospitalRoom Phone: pOCT GlucoseOrdered By: Kin Abarca on 06-15-2021 Glucose [Mass/Vol]186 mg/rBJhhw26 - 100 mg/dLGuernsey Memorial HospitalRoom Phone: Interpretation and review of laboratory results AbnormalGuernsey Memorial HospitalRoom Phone: pOTASSIUM (POC)Ordered By: Kin Abarca on 06-15-2021 Potassium [Moles/Vol]4.5 mmol/L3.5 - 4.5 mmol/LMohiohealth o'bleness hospitaly Runnit Phone: eKG 12 leadOrdered By: Latonia Burks on 05-13-2021 Atrial Wese04SJUSauaaInnolight Phone: p Yivs17yiskcdbKpcyv Health Work Phone: p-R Zqxexpfv630 [facility] WagonerInnolight Phone: Q-T Tkiriqfa236 [facility] WagonerInnolight Phone: QRS Yqwbpbjj224 [facility] – Wagonersezmi Work Phone: QTc Calculation (Bazett)532 [facility]37coins Work Phone: r Hxkw35ndfyaakLtcos Health Work Phone: T Dctm419djppthsBylgz Health Work Phone: Ventricular Earf23MBNIdytpInnolight Phone: sinus rhythm with Premature atrial complexes Left bundle branch block Abnormal ECG No previous ECGs available [facility] HospitalFarFaria Phone: edi, pn Incoming Ekg Results From [facility] [place] - 05/13/2021 1:30 PM EDT Sinus rhythm with Premature atrial complexes Left bundle branch block Abnormal ECG No previous ECGs availableGuernsey Memorial HospitalRoom Phone: [facility] HospitalRoom Phone: basic Metabolic Panel w/ Reflex to MGOrdered By: Latonia Burks on 21-55-0636Rzrrq gap [Moles/Vol]13 mmol/L9 - 17 mmol/LMohiohealth o'bleness hospitaly [employer] Work Phone: calcium [Mass/Vol]9.4 mg/dL8.6 - 10.4 mg/dLGuernsey Memorial HospitalRoom Phone: chloride [Moles/Vol]102 mmol/L98 - 107 mmol/LMohiohealth o'bleness hospitaly Runnit Phone: cO2 [Moles/Vol]28 mmol/L20 - 31 mmol/LMohiohealth o'bleness hospitaly Runnit Phone: creatinine [Mass/Vol]0.94 mg/dLHigh0.50 - 0.90 mg/dL [facility] HospitalFarFaria Phone: GFR >60>60 mL/minGuernsey Memorial HospitalRoom Phone: GFR Non- Jaueuzqw19 mL/minLow>60[facility] Memorial HospitalRoom Phone: GFR/1.73 sq M.predicted MDRD (S/P/Bld) [Vol rate/Area] [facility] HospitalFarFaria Phone: comment on above:Average GFR for 70 or more years old: 75 mL/min/1.73sq m Chronic Kidney Disease: <60 mL/min/1.73sq m Kidney failure: <15 mL/min/1.73sq m eGFR calculated using average adult body mass. Additional eGFR calculator available at: http://www.Collisionable/multiple_crcl_2012.htm GFR/1.73 sq M.predicted MDRD (S/P/Bld) [Vol rate/Area]NOT REPORTEDGuernsey Memorial HospitalRoom Phone: Glucose [Mass/Vol]119 mg/jSCosd61 - 99 mg/dLGuernsey Memorial HospitalRoom Phone: Interpretation and review of laboratory results AbnormalGuernsey Memorial HospitalRoom Phone: potassium [Moles/Vol]4.0 mmol/L3.7 - 5.3 mmol/LMohiohealth o'bleness hospitaly Runnit Phone: sodium [Moles/Vol]143 mmol/L135 - 144 mmol/LMercy [employer] Work Phone: Urea nitrogen (BldV) [Mass/Vol]18 mg/dL8 - 23 mg/dL [employer] Phone: Urea nitrogen/Creatinine (Bld) [Mass ratio]NOT REPORTEDGuernsey Memorial HospitalRoom Phone: [facility] HospitalRoom Phone: cBC auto differentialOrdered By: Latonia Burks on 50-89-0181Bmwuodfb Eos #0.26[facility] HospitalRoom Phone: absolute Immature Granulocyte0.04[facility] HospitalRoom Phone: absolute Lymph #3.26[facility] HospitalRoom Phone: absolute Kimball #0.84[facility] HospitalRoom Phone: basophils (Bld) [#/Vol]0.05 10*3/uLGuernsey Memorial HospitalRoom Phone: basophils/100 WBC (Bld)1 %0 - 2 %[employer] Phone: differential TypeNOT REPORTEDGuernsey Memorial HospitalRoom Phone: eosinophils/100 WBC (Bld)3 %1 - 4 %[employer] Phone: Hematocrit (Bld) [Volume fraction]36.9 %36.3 - 47.1 % [employer] Phone: Hemoglobin.gastrointestinal spec 1 Ql (Stl)11.2 g/dL Low11.9 - 15.1 g/dLGuernsey Memorial HospitalRoom Phone: Immature granulocytes/100 WBC (Bld)0 %0Gu[facility] Memorial HospitalRoom Phone: Interpretation and review of laboratory results AbnormalGuernsey Memorial HospitalRoom Phone: lymphocytes/100 WBC (Bld)32 %24 - 43 %[employer] Phone: MCH (RBC) [Entitic mass]28.3 pg25.2 - 33.5 pgGuernsey Memorial HospitalSino Gas & Energy Work Phone: MCHC (RBC) [Mass/Vol]30.4 g/dL28.4 - 34.8 g/dLGuernsey Memorial HospitalRoom Phone: [phone] (RBC) [Entitic vol]93.2 fL82.6 - 102.9 fLGuernsey Memorial HospitalRoom Phone: [phone]/100 WBC (Bld)8 %3 - 12 %[employer] Phone: NRBC Automated0.00.0 per 100 WBCAgorafy Phone: [phone] distribution width (Bld) [Ratio]13.8 %11.8 - 14.4 %[employer] Phone: [phone] EstimateNOT REPORTEDGuernsey Memorial HospitalRoom Phone: [phone] mean volume (Bld) [Entitic vol]9.5 fL8.1 - 13.5 fLGuernsey Memorial HospitalRoom Phone: [phone] (Bld) [#/Vol]310 10*3/uLAgorafy Phone: [phone] (Bld) [#/Vol]3.96 10*6/uL3.95 - 5.11 m/Ensyn Phone: [phone] (Bld) [#/Vol]NOT REPORTEDGuernsey Memorial HospitalRoom Phone: [phone] neutrophils/100 WBC (Bld)56 %36 - 65 %[employer] Phone: [phone] Absolute5.70[facility] HospitalRoom Phone: [phone] (Bld) [#/Vol]10.2 10*3/uLAgorafy Phone: [phone] (Bld) [#/Vol]NOT REPORTEDGuernsey Memorial HospitalSino Gas & Energy Work Phone: [phone] [employer] Work Phone: [phone] CHEST (2 VW)Ordered By: Latonia Burks on 05-12-2021 Senescent changes compatible with the age of the patient. No evidence of acute cardiopulmonary process.[employer] Phone: eXAMINATION: TWO XRAY VIEWS OF THE [...] the spine and visualized portions of the shoulders.[employer] Phone: edi, [facility] Incoming Radiant Results From [employer] - 05/12/2021 2:48 PM EDT EXAMINATION: TWO [...] patient. No evidence of acute cardiopulmonary process. [employer] Phone: [facility] HospitalRoom Phone: cardiovascular Lab Reporton 06-50-8057Ogdokbvgrzzvyf Lab ReportUnSCCI Hospital Lima [facility] MR #: [id number] Department of Physician: Bertram Keyes M.D. Division of Service Date: 08/20/2020 Cardiology Birthdate: 1940 Adult Cardiovascular Room #: [facility] [address] [place] [address] Cardiovascular Laboratory Report INDICATION: The patient is [...] signed informed consent. She was brought to clinical laboratory assistant in a fasting state. The procedure was performed under conscious sedation. A transesophageal echocardiogram was performed by Dr. Marisol Khoury at baseline. Please refer to his dictation for details. The appendage measured a maximum of 16 mm in terms of ostial width. Using ultrasound guidance and micropuncture technique, access was obtained in the right common femoral vein and a 6-Nigerien x 11 cm sheath was placed preclosure where the 6-Nigerien ProGlide device was performed followed by advancement [...] was exchanged over that wire to the 14-Nigerien Watchman access sheath, which was advanced to the left atrial cavity with no issues. The 6-Nigerien angled pigtail catheter was advanced over the [...] Keyes M.D. Date Trans: (more content not included)...NormalPeoples HospitalTYPE AND CROSSMATCHon 40-56-4995TJF INTERPRETATIONANoCleveland Clinic Akron GeneralComment on above:Performed By: #### [id number] #### [facility] [address] [place] [address], [facility] INTERPRETATIONPositiveMorrow County HospitalComment on above:Performed By: #### [id number] #### [facility] [address] [place] [address], [facility] CENTERB Vital Signs Date TimeVital SignValuePerforming TwqslhtdyCeicfnnj89-79-8856 11:06-0500Body ceiylw990.4 cmMateus Perry MD Work Phone: [phone] [place], [place] 0325411-03-2025 11:06-0500 Body mass index (BMI) [Ratio]25.5 kg/p8TzwvpioMateus Perry MD Work Phone: [phone] [place], [place] 0325411-03-2025 11:06-0500 Body wearzh57.42 kgMateus Perry MD Work Phone: [phone] [place], [place] 0325410-23-2025 13:58-0400 Body beklei554.4 cmPeyman Brown DPM Work Phone: [phone] [place], [place] [address]Gvvtxuxmuy81-27-7166 13:58-0400Body mass index (BMI) [Ratio]28.32 kg/y3Uovzyfzp Brown DPM Work Phone: [phone] [place], [place] [address]Jujtbpkvsy95-09-8106 13:58-0400Body mseeuy57.77 kgNicholvalentina Hensley DPM Work Phone: [phone] [place], [place] [address]Gubzhhiovt91-09-3397 13:58-0400Respiratory rate16 /minPeyman Hensley DPM Work Phone: [phone] [place], [place] [address]Gormxgibeg27-67-9624 14:36-0400Body cfljsa165.4 cmNicholvalentina Brown DPM Work Phone: [phone] [place], [place] [address]Nvblpsbbpn50-25-3901 14:36-0400Body mass index (BMI) [Ratio]28.32 kg/l7Yumosvdk Brown DPM Work Phone: [facility] SystemVhyqvasdnm25-84-5851 14:36-0400Body qnkuwi73.77 kgPeyman Hensley DPM Work Phone: [facility] SystemJjflhytvge98-75-4264 14:36-0400Respiratory rate16 /minPeyman Hensley DPM Work Phone: [facility] SystemOowtipzmgn53-30-7660 13:02-0500Body tmmsiu619.9 cmAdajayme Ashton MD Work Phone: ccleveland clinic mentor hospitaland Dbiual69-24-5546 13:02-0500Body mass index (BMI) [Ratio]28.13 kg/x4BsirznVaibhav Ashton MD Work Phone: cVan Wert County HospitalItgmqx13-27-4405 13:02-0500Body temperature 97.2 [degF]Vaibhav Ashton MD Work Phone: cVan Wert County HospitalGcjgsf76-70-3664 13:02-0500Body wntgca60.5 kgVaibhav Ashton MD Work Phone: ccleveland clinic mentor hospitaland Nqofyr06-33-3376 13:02-0500Diastolic blood xmgdagxj72 mm[Hg]Vaibhav Ashton MD Work Phone: ccleveland clinic mentor hospitaland Ipwfao87-02-9520 13:02-0500Heart rate75 /min Vaibhav Ashton MD Work Phone: [facility] Fbrfkr65-69-2519 13:02-0500Respiratory rate 16 /minAdajayme Ashton MD Work Phone: [facility] Bnsqpi62-80-9893 13:02-0500XzU6% (BldA) [Mass fraction]99 %Vaibhav Ashton MD Work Phone: [facility] Opfhef57-28-5057 13:02-0500Systolic blood qpnvqpsa530 mm[Hg]Vaibhav Ashton MD Work Phone: [facility] hospitalW[facility] CenterEjijlk80-08-0402 10:01-0500Body uoruia017.4 cmNicholvalentina Hensley DPM Work Phone: 1(240)[address]12-19-2024 10:01-0500Body mass index (BMI) [Ratio]28.32 kg/b7Txtmaiut Brown DPM Work Phone: 1(818)871-[address] [place], [place] [address]Kyxysxuzdu80-34-4837 10:010500Body ugnwmw62.77 kgNicholas Brown DPM Work Phone: 1(596)[address]12-19-2024 10:01-0500Respiratory rate16 /minNicholvalentina Brown DPM Work Phone: 1(596)[address] [place], [place] 9700210-10-2024 10:140400Body .4 cmNicholvalentina Brown DPM Work Phone: 1(009)[address]10-10-2024 10:140400Body mass index (BMI) [Ratio]28.32 kg/x6Sojejvqx Brown DPM Work Phone: 1(341)[address] [place], [place] 9700210-10-2024 10:140400Body cqfuub62.77 kgNicholvalentina Hensley DPM Work Phone: 1(071)[address]10-10-2024 10:140400Respiratory rate18 /minNicdayana Hensley DPM Work Phone: 1(850)9-[address] [place], [place] [address]Aqgdnltioe19-48-2214 10:180400Body .86 cmMD Mateus Perry Work Phone: 1(907)320-[address] [place], [place] 0325408-21-2024 10:18-0400 Body mass index (BMI) [Ratio]30.2 kg/m2MD Mateus Hoy Work Phone: 1(883)126-[address] [place], [place] 0325408-21-2024 10:180400 Body ldtrviaewjc12.8 [degF]MD Mateus Perry Work Phone: 1(394)591-[address] [place], [place] 0325408-21-2024 10:18-0400 Body .03 kgMD Mateus Perry Work Phone: 1(911)841-[address] [place], [place] 0325408-21-2024 10:18-0400 Diastolic blood cbmlxsar44 mm[Hg]MD Mateus Perry Work Phone: [phone])483-[address] [place], [place] 0325408-21-2024 10:18-0400 Heart rate80 /minMD Mateus Maciely Work Phone: 1(419)[address]08-21-2024 10:18-0400 Respiratory rate16 /minMD Mateus Hoy Work Phone: 1(419)[facility]-[address] [place], [place] 0325408-21-2024 10:18-0400 SaO2% (BldA) [Mass fraction]98 %MD Mateus Perry Work Phone: 1(419)[address] [place], [place] 9930108-21-2024 10:18-0400 Systolic blood lprputrd680 mm[Hg]MD Mateus Perry Work Phone: 1(419)[address] [place], [place] 9930108-14-2024 11:13-0400 Body ogjyoq408.86 cmMD Mateus Hoy Work Phone: 1(419)[address] [place], [place] 9930108-14-2024 11:13-0400 Body mass index (BMI) [Ratio]36.3 kg/m2MD Mateus Hoy Work Phone: 1419)[address] [place], [place] 9930108-14-2024 11:13-0400 Body jifont42.64 kgMD Mateus Hoy Work Phone: 1(419)[address] [place], [place] 9930108-14-2024 11:06-0400 Body yxsizsiwplu43.8 [degF]MD Mateus Perry Work Phone: 1(419)[address] [place], [place] 9930108-14-2024 11:06-0400 Diastolic blood jyjxiqjo24 mm[Hg]MD Mateus Perry Work Phone: 1(419)[address] [place], [place] 9930108-14-2024 11:06-0400 Heart rate97 /minMD Mateus Perry Work Phone: 1419)[address] [place], [place] 9930108-14-2024 11:06-0400 Respiratory rate20 /minMD Uribelas Hoy Work Phone: 1(885)[address] [place], [place] 9930108-14-2024 11:06-0400 Systolic blood wnfatvzn064 mm[Hg]MD Mateus Perry Work Phone: 1(696)[address] [place], [place] 9930107-31-2024 10:30-0400 Body kiswst352.86 cmMD Mateus Hoy Work Phone: 1(254)[address] [place], [place] 9930107-31-2024 10:30-0400 Body mass index (BMI) [Ratio]36.3 kg/m2MD Mtaeus Hoy Work Phone: 1(425)[address] [place], [place] 9930107-31-2024 10:30-0400 Body twmjpi42.64 kgMD Mateus Hoy Work Phone: 1(791)[address] [place], [place] 9930107-16-2024 09:51-0400 Body swxvmy162.86 cmMD Mateus Hoy Work Phone: 1(863)[address] [place], [place] 9930107-16-2024 09:51-0400 Body mass index (BMI) [Ratio]36.3 kg/m2MD Mateus Hoy Work Phone: 1(499)[address] [place], [place] 9930107-16-2024 09:51-0400 Body lsjbyx29.64 kgMD Mateus Hoy Work Phone: 1(173)[address] [place], [place] 9930107-16-2024 09:36-0400 Body .3 [degF]MD Mateus Perry Work Phone: 1(407)[address] [place], [place] 9930107-16-2024 09:36-0400 Diastolic blood qbtevrma74 mm[Hg]MD Mateus Perry Work Phone: 1(042)[address] [place], [place] 9930107-16-2024 09:36-0400 Heart rate86 /minMD Mateus Hoy Work Phone: 1(290)[address] [place], [place] 9930107-16-2024 09:36-0400 Respiratory rate18 /minMD Mateus Hoy Work Phone: 1(957)[address] [place], [place] 9930107-16-2024 09:36-0400 Systolic blood ygovbhhm226 mm[Hg]MD Mateus Perry Work Phone: 1(539)[address] [place], [place] 9930110-10-2023 15:29-0400 Body bgvykg125.9 cmMinantonella Farris PA-C Work Phone: [facility]10-10-2023 15:29-0400Body temperature 97.39 [degF]Winnie Kaleigh PA-C Work Phone: [facility]10-10-2023 15:29-0400Body rpxmbo65.64 kgMindy Kaleigh PA-C Work Phone: [facility]10-10-2023 15:29-0400Diastolic blood bmcxiazv14 mm[Hg]Winnie Kaleigh PA-C Work Phone: [facility]10-10-2023 15:29-0400Heart rate72 /min Winnie Kaleigh PA-C Work Phone: [facility]10-10-2023 15:29-0400Respiratory rate 16 /minMindy Kaleigh PA-C Work Phone: [facility]10-10-2023 15:29-1731KpI3% (BldA) [Mass fraction]96 %Winnie Kaleigh PA-C Work Phone: [facility]10-10-2023 15:29-0400Systolic blood suwmkgor497 mm[Hg]Winnie Kaleigh PA-C Work Phone: [facility]09-21-2023 08:45-0400Body ogmdch741.94 cmMamaximo Gonzales Other [employer] Other 09-21-2023 08:45-0400Body mass index (BMI) [Ratio] 34.57 kg/p5TkqemtsChristiano Gonzales Other [employer] Other 09-21-2023 08:45-0400Body zpcjzlsxujg89.8 [degF] Christiano Gonzales Other [employer] Other 09-21-2023 08:45-0400Body dqacjj49.01 kgMamaximo Gonzales Other [employer] Other 09-21-2023 08:45-0400Diastolic blood lcjtsnoq52 mm[Hg] Christiano Gonzales Other [employer] Other 09-21-2023 08:45-1543ZdG2% (BldA) [Mass fraction]93 % Christiano Gonzales Other [employer] Other 09-21-2023 08:45-0400Systolic blood beobwvao828 mm[Hg] Christiano Gonzales Other [employer] Other 06-29-2023 08:45-0400Body unnfkn853.94 cmMillie Storm Other [employer] Other 06-29-2023 08:45-0400Body mass index (BMI) [Ratio] 34.57 kg/n8XogcsxMillie Storm Other [employer] Other 06-29-2023 08:45-0400Body zvzwezetbra26.8 [degF]Millie Storm Other [employer] Other 06-29-2023 08:45-0400Body jtxpav25.01 kgMillie Storm Other [facility] Other 06-29-2023 08:45-0400Diastolic blood lfwcwaue00 mm[Hg] Millie Storm Other [employer] Other 06-29-2023 08:45-8508NhR8% (BldA) [Mass fraction]97 % Millie Storm Other [employer] Other 06-29-2023 08:45-0400Systolic blood mm[Hg] Millie Storm Other [employer] Other 06-06-2023 10:19-0400Body oigfgr070.9 cmWallace Stone MD Work Phone: [facility]06-06-2023 10:19-0400Body temperature 97.39 [degF]Wallace Stone MD Work Phone: [facility]06-06-2023 10:19-0400Body xjimog07.46 kgWallace Stone MD Work Phone: [facility]06-06-2023 10:19-0400Diastolic blood tyzwxler78 mm[Hg]Wallace Stone MD Work Phone: [facility]06-06-2023 10:19-0400Heart rdva985 /Kieran Stone MD Work Phone: [facility]06-06-2023 10:19-0400Respiratory rate 16 /Kieran Stone MD Work Phone: [facility]06-06-2023 10:19-0844OsW6% (BldA) [Mass fraction]95 %Wallace Stone MD Work Phone: [facility]06-06-2023 10:19-0400Systolic blood mm[Hg]Wallace Stone MD Work Phone: [facility]03-29-2023 14:00-0400Body szxeis230.94 cmMillie Jonesevelia Other [facility] [employer] Other 03-29-2023 14:00-0400Body mass index (BMI) [Ratio] 35.71 kg/v8SfvapvMillie Storm Other [facility] [employer] Other 03-29-2023 14:00-0400Body uhhiblcezoj85.6 [degF]Millie Storm Other [facility] Other 03-29-2023 14:00-0400Body zkljah43.73 kgMillie Storm Other [employer] Other 03-29-2023 14:00-0400Diastolic blood xbqreycy06 mm[Hg] Millie Storm Other [facility] Other 03-29-2023 14:00-1009BhP1% (BldA) [Mass fraction]93 % Millie Storm Other [employer] Other 03-29-2023 14:00-0400Systolic blood dfgxonjo242 mm[Hg] Millie Storm Other [employer] Other 03-21-2023 11:53-0400Diastolic blood xeyvpayo49 mm[Hg] MD Mateus Perry Work Phone: [facility]03-21-2023 11:53-0400 Heart rate67 /minMD Mateus Perry Work Phone: [facility]03-21-2023 11:53-0400 Respiratory rate16 /minMD Mateus Perry Work Phone: [facility]03-21-2023 11:53-0400 SaO2% (BldA) [Mass fraction]94 %MD Mateus Perry Work Phone: [facility]03-21-2023 11:53-0400 Systolic blood nfpeqqdr156 mm[Hg]MD Mateus Moscoso Phone: [facility]03-21-2023 09:13-0400 Body mpupod853.94 cmMD Mateus Perry Work Phone: [facility]03-21-2023 09:13-0400 Body osrjow16.64 kgMD Mateus Perry Work Phone: [facility]03-15-2023 11:00-0400 Body nssoly470.94 cmChristiano Gonzales Other [employer] Other 03-15-2023 11:00-0400Body jtrwsoxprvn23.8 [degF] Christiano Gonzales Other [employer] Other 03-15-2023 11:00-0400Diastolic blood syyncbhi66 mm[Hg] Christiano Gonzales Other [employer] Other 03-15-2023 11:00-9063NdN5% (BldA) [Mass fraction]96 % Christiano Gonzales Other [employer] Other 03-15-2023 11:00-0400Systolic blood pkqnodne950 mm[Hg] Christiano Gonzales Other [employer] Other 03-01-2023 13:44-0500Body rqmhpo448.9 cmWallace Stnoe MD Work Phone: [facility]03-01-2023 13:44-0500Body temperature 97.11 [degF]Wallace Stone MD Work Phone: [facility]03-01-2023 13:44-0500Body dxidxx06.73 kgWallace Stone MD Work Phone: [facility]03-01-2023 13:44-0500Diastolic blood ibmposiz02 mm[Hg]Wallace Stone MD Work Phone: [facility]03-01-2023 13:44-0500Heart rate66 /min Wallace Stone MD Work Phone: [phone]([phone]03-01-2023 13:44-0500Respiratory rate 18 /minWallace Stone MD Work Phone: 1(862)7472[facility]03-01-2023 13:44-9731FjX4% (BldA) [Mass fraction]100 %Wallace Stone MD Work Phone: 1(054)[address] [place], [place] 3443603-01-2023 13:44-0500Systolic blood mm[Hg]Wallace Stone MD Work Phone: 1(994)[address] [place], [place] 8090501-12-2023 11:24-0500Body .9 cmWallace Stone MD Work Phone: 1(798)[facility] [place], [place] 3443601-12-2023 11:24-0500Body temperature 97.81 [degF]Wallace Stone MD Work Phone: 1(160)[address] [place], [place] 8090501-12-2023 11:24-0500Body xbfmar47.82 kgWallace Stone MD Work Phone: 1(251)[address] [place], [place] 4183801-12-2023 11:24-0500Diastolic blood xlydovrn23 mm[Hg]Wallace Stone MD Work Phone: 1(189)[address] [place], [place] 3443601-12-2023 11:24-0500Heart rate70 /min Wallace Stone MD Work Phone: 1(513)918-91[facility]01-12-2023 11:24-0500Respiratory rate 16 /minWallace Stone MD Work Phone: [phone]([phone]01-12-2023 11:24-0669UvG1% (BldA) [Mass fraction]94 %Wallace Stone MD Work Phone: [facility]01-12-2023 11:24-0500Systolic blood mm[Hg]Wallace Stone MD Work Phone: [facility]12-30-2022 15:06-0500Blood Pressure LocationMichael NILL [facility] Mrrsaacm08-21-4316 15:06-0500Diastolic blood lzptujtw97 mm[Hg]Iliana NILL [facility] Rfnwsbhi25-97-9822 15:06-0500Heart rate 68 /minMichael NILL [facility] Qjtegafw72-22-3947 15:06-0500 Respiratory rate16 /minMichael NILL [facility]12-30-2022 15:06-0500Systolic blood ctlulppj822 mm[Hg]Iliana NILL [facility] Bhlsojqb48-53-7095 12:00-5875YtP2% (BldA) [Mass fraction]95 %Emma Plunkett MD Work Phone: [facility]10-18-2022 11:50-0400Body rkcoyblfbss43.3 [degF]Emma Plunkett MD Work Phone: [facility]10-18-2022 11:50-0400Diastolic blood mm[Hg]Emma Plunkett MD Work Phone: [facility]10-18-2022 11:50-0400Heart rate69 /Terese Plunkett MD Work Phone: [facility]10-18-2022 11:50-0400 Respiratory rate16 /Terese Plunkett MD Work Phone: [facility]10-18-2022 11:50-0400Systolic blood rmehoozj251 mm[Hg]Emma Plunkett MD Work Phone: [facility]10-18-2022 07:36-0400Body tuqvia001.9 cmCjameel Plunkett MD Work Phone: [facility]10-18-2022 07:36-0400Body mass index (BMI) [Ratio]34.58 kg/h2BpydoqewojkEmma Plunkett MD Work Phone: [facility]10-18-2022 07:36-0400Body pijdvc83.01 kgEmma Plunkett MD Work Phone: [facility]04-04-2022 15:45-0400Body bmushqgnssr44 [degF]Emma [facility]unkett MD Work Phone: [facility]Pjtjgl69-70-7105 15:45-0400Diastolic blood jssmdjoq98 mm[Hg]Emma Plunkett MD Work Phone: [facility] HospitalGprauw79-97-3494 15:45-0400Heart rate65 /min Emma Plunkett MD Work Phone: [facility] HospitalSzcrzp59-62-6409 15:45-0400Respiratory rate14 /minEmma Plunkett MD Work Phone: [facility] HospitalSxakyz38-03-9899 15:45-9444AzT9% (BldA) [Mass fraction]94 %Emma Plunkett MD Work Phone: [place] [address]Hgosra39-54-5411 15:45-0400Systolic blood jaijrwdz539 mm[Hg]Emma Plunkett MD Work Phone: 1([phone] [address]Lhtojg58-46-9868 09:46-0400Body nivtjk419.9 cm Emma Plunkett MD Work Phone: [facility] HospitalXktdrp12-98-2688 09:46-0400Body mass index (BMI) [Ratio]36.09 kg/j8LlmkwxqrmtjEmma Plunkett MD Work Phone: [facility] HospitalMgwntn41-59-3300 09:46-0400Body hyufyi80.64 kg Emma Plunkett MD Work Phone: [facility] HospitalGtftvu64-96-1931 14:46-0400Body nikcha881.[address]03-28-2022 14:46-0400Body mass index (BMI) [Ratio]36.09 kg/m2 [address]03-28-2022 14:46-0400Body gpbomdcsyyq78.4 [degF][address]03-28-2022 14:46-0400Body mocsqp35.[address]03-28-2022 14:46-0400Diastolic blood mm[Hg][address]03-28-2022 14:46-0400Heart rate62 /minSt[address]03-28-2022 14:46-0400Respiratory rate20 /minStv25 [address] StreetHsnmdl29-04-7151 14:46-1138JwU7% (BldA) [Mass fraction]97 %[address]03-28-2022 14:46-0400Systolic blood rbxjquri260 mm[Hg][address]10-05-2021 10:14-0400Body qhwjelhmemn31.81 [degF]Kin Abarca MD Work Phone: [facility] Work Phone: 1(651) 950-742010-05-2021 10:14-0400Diastolic blood qhzqozyq76 mm[Hg] Kin Abarca MD Work Phone: [facility] Work Phone: 1(650) 986-822310-05-2021 10:14-0400Heart rate61 /Rosalva Abarca MD Work Phone: [facility] Work Phone: 1(989) 563-509310-05-2021 10:14-0400Respiratory rate14 /Rosalva Abarca MD Work Phone: [facility] [employer] Work Phone: 1(686) 172-789710-05-2021 10:14-0788EsT0% (BldA) [Mass fraction]96 % Kin Abarca MD Work Phone: [facility] [employer] Work Phone: 1(533) 141-316410-05-2021 10:14-0400Systolic blood xntvtegb737 mm[Hg] Kin Abarca MD Work Phone: [facility] [employer] Work Phone: 1(987) 646-586410-05-2021 08:24-0400Body sbklty514.9 Dharmesh Abarca MD Work Phone: [facility] [employer] Work Phone: 1(477) 456-547710-05-2021 08:24-0400Body mass index (BMI) [Ratio] 34.96 kg/m2Kin Abarca MD Work Phone: [facility] [employer] Work Phone: 1(116) 808-979110-05-2021 08:24-0400Body .92 kgKin Abarca MD Work Phone: [facility] [employer] Work Phone: 1(810) 715-515709-01-2021 12:53-0400Body .9 cmStvz [facility] [employer] Work Phone: 1(738) 570-733409-01-2021 12:53-0400Body mass index (BMI) [Ratio] 35.52 kg/m2Stvz [facility] [employer] Work Phone: 1(396) 887-337809-01-2021 12:53-0400Body yllrgttbqbw00.8 [degF]Stvz 1 [facility] [employer] Work Phone: 1(368) 234-185309-01-2021 12:53-0400Body rpavmb21.28 kgStvz [facility] [employer] Work Phone: 1(963) 321-152209-01-2021 12:53-0400Diastolic blood jirmcqmc30 mm[Hg] Stvz [facility] [employer] Work Phone: 1(742) 551-423309-01-2021 12:53-0400Heart rate57 /minStvz [facility] [employer] Work Phone: 1(971) 818-618309-01-2021 12:53-0400Respiratory rate18 /minStvz 1 [facility] [employer] Work Phone: 1(556) 295-318409-01-2021 12:53-7012KhN1% (BldA) [Mass fraction]96 % Stvz [facility] [employer] Work Phone: 1(796) 697-391109-01-2021 12:53-0400Systolic blood yrsgzkjh209 mm[Hg] Stvz [facility] [employer] Work Phone: Encounters Encounter DateEncounter TypeCare ProviderFacilityStart: 07-18-2025 End: 52-48-2727rhlhzvefzbCtimqplJefferson Farmer MDFacility: [place] Start: 45-27-5700ophoxmqgrzIHXN [facility] Hospitaltart: 07-14-2025 End: 38-89-1756lkwbfgytblQpjhrjd M Hoy MD Work Phone: -[facility] BellevueStart: 07-14-2025 End: 57-25-0397Srtcnzw encounter procedureJujudy Cutler DO-[facility] [place] Work Phone: Start: 07-03-2025 End: 63-05-3325Rwfgew Pavithra Hensley DPM Work Phone: [facility] CI PODIATRYStart: 07-03-2025 End: 74-16-0004Cevlou Pavithra Hensley DPM Work Phone: [facility] CI PODIATRYStart: 07-03-2025 End: 52-52-7129Kcqqgb outpatient visit 10 minutesNicdayana Hensley DPM Work Phone: [facility] CI PODIATRYComment on above:Neoplasm of uncertain behavior of skin (Primary Dx); Diabetes mellitus due to underlying condition with diabetic polyneuropathy, 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 (HCC); Pain due to onychomycosis of toenails of both feet; Venous insufficiency; Acquired deformity of left toeStart: 07-03-2025 End: 86-95-2856medkqozjyrJJDEGHJQ A BROWNNot AvailableStart: 06-18-2025 ambulatoryBLAIR GRUBBUniCleveland Clinic Hillcrest Hospitaltart: 06-03-2025 End: 59-87-7541Tetdgbu encounter procedureChristiano Mcdonnell MD-Lab [address] Work Phone: Start: 06-03-2025 End: 52-87-6433wnyurifptdDkqgagx M Hoy MD Work Phone: [facility] Work Phone: Start: 25-46-8551edcblhhudiORZYYSouthwest General Health Centertart: 03-04-2025 End: 33-43-4688xqvubwezbxWdpwykp MorrowFacility:[facility] Hospitaltart: 69-94-9278ncrjbfgzpsTDIRSouthview Medical Center Start: 01-30-2025 End: 28-26-5362uniksydldbLKKOPEQH A BROWNNot AvailableStart: 01-21-2025 End: 44-70-0002tqpruyruyeIFKOFlower Hospitaltart: 22-71-2235waxtejvtgmEHYFFlower Hospitaltart: 01-07-2025 End: 98-96-4931Mkcqafv encounter Hardik Perry MD Work Phone: [facility]-[address] Work Phone: Start: 01-07-2025 End: 19-69-0893ajaueyrcuoVgveeei M Hoy MD Work Phone: [facility] Work Phone: Start: 83-50-5858qupuqnymjeRQZFSumma Health Akron Campustart: 12-10-2024 End: 42-19-3636Ejuoxzv encounter procedureMateus Perry MD Work Phone: [facility]-[address] Work Phone: Start: 12-10-2024 End: 23-44-0203fxroxkezmgRlbmokv M Hoy MD Work Phone: [facility] Work Phone: Start: 11-21-2024 End: 46-09-2792Cttnvr outpatient visit 15 minutesNicdayana Hensley DPM Work Phone: [facility] CI PODIATRYComment on above:Neoplasm of uncertain behavior of skin (Primary Dx); Diabetes mellitus due to underlying condition with diabetic polyneuropathy, 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 correction insulin use ([facility]); Pain due to onychomycosis of toenails of both feet; Venous insufficiency; 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 John of God Hospitaltart: 42-50-9995aewcxoarprBULWHolmes County Joel Pomerene Memorial Hospitaltart: 11-05-2024 End: 77-61-4219ssptjjjjizSRNHSumma Health Akron Campustart: 10-29-2024 End: 98-28-8574Skhmhjp encounter Hardik Perry MD Work Phone: [facility]-[address] Work Phone: Start: 10-29-2024 End: 02-80-8296pqzdbclrcqUrywbhw M Hoy MD Work Phone: [facility] Work Phone: Start: 40-87-9872mhtfqfynwdFPGX [facility] Hospitaltart: 10-09-2024 End: 80-16-9425Htnhxdfdd encounterAdajayme Ashton MD Work Phone: Hematology/OncologyStart: 10-08-2024 End: 97-71-9332Eucpcp outpatient visit 25 minutesAdarsdarian Ashton MD Work Phone: Hematology/OncologyComment on above: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, estrogen receptor positive (HCC) (Primary Dx); Stage 3a chronic kidney disease (HCC)Start: 10-08-2024 End: 05-11-9258mlvlydwimmMCYODMC M HOYFacility:[facility] Hospitaltart: 10-04-2024 End: 50-66-2411Fworxszpb encounterFelicelen Sandoval RNHematology/OncologyComment on above:Patient Question; Appointment; OrdersStart: 09-24-2024 End: 78-44-6025pmvoccsepcTYWXFlower Hospitaltart: 03-92-4593ciwsoznbabWOSDFlower Hospitaltart: 18-13-0046unzfinkddrLRRBFlower Hospitaltart: 65-67-9959vcglqworuqQRPZFlower Hospitaltart: 37-78-8202Xkkiegmpr for preprocedural cardiovascular examinationPACincinnati Children's Hospital Medical Centertart: 82-01-3877Rha-patient / Non-visit Mateus Perry MD Work Phone: [facility]Cl[facility] Work Phone: Start: 64-20-5517scuvugxnqiEHUM [facility] Hospitaltart: 08-29-2024 End: 87-41-4350Btuofw Pavithra Hensley DPM Work Phone: [facility] CI PODIATRYStart: 08-29-2024 End: 23-26-4626Zknxidricardo Hensley DPM Work Phone: [facility] PODIATRYStart: 08-29-2024 End: 29-87-3574Hoxwku outpatient visit 15 minutesPeyman Hensley DPM Work Phone: [facility] CI PODIATRYComment on above: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) (Primary Dx); Diabetes mellitus due to underlying condition with diabetic polyneuropathy, 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 (CMS/HCC); Pain due to onychomycosis of toenails of both feet; Venous insufficiency; Neoplasm of uncertain behavior of skinStart: 08-29-2024 End: 21-71-5359sqcbcvtvfwWQCWXOHE A BROWNNot AvailableStart: 08-27-2024 End: 42-49-2710ucrmrkpghsFZIHAshtabula County Medical Centertart: 31-15-4523meucsihnccKMYNAshtabula County Medical Centertart: 08-12-2024 End: 32-28-4144muauuklgitLVTKAshtabula County Medical Centertart: 06-20-2024 End: 20-91-0678Sywjfd Pavithra Hensley DPM Work Phone: [facility] CI PODIATRYStart: 06-20-2024 End: 84-04-3828Jdmyik Pavithra Hensley DPM Work Phone: [facility] CI PODIATRYStart: 06-20-2024 End: 86-50-2668Uigkcx outpatient new 30 minutesPeyman Hensley DPM Work Phone: [facility] CI PODIATRYComment on above:Hav (hallux abducto valgus), left (Primary Dx); Venous insufficiency; Acquired deformity of left toe; 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); Diabetes mellitus due to underlying condition with diabetic polyneuropathy, 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 correction insulin use (CMS/HCC); Pain due to onychomycosis of toenails of both feetStart: 05-01-2024 End: 91-83-7123kimuwfalkqTV Matues M Hoy Work Phone: [facility] Work Phone: Start: 05-01-2024 End: 36-29-5489Ojtbvhx encounter procedureMD Mateus Hoy Work Phone: [facility] V[facility] Work Phone: Start: 04-24-2024 End: 12-57-0793sqngmythzfDI Mateus M Hoy Work Phone: [facility] Work Phone: Start: 04-24-2024 End: 04-98-0062Gvexedytuf RecurringMD Mateus Hoy Work Phone: [facility] [facility] Work Phone: Start: 04-09-2024 End: 15-00-7154ftncbbzfrmDI Mateus M Hoy Work Phone: [facility] Work Phone: Start: 04-09-2024 End: 24-11-9760Gjjhxdw encounter procedureMD Mateus Hoy Work Phone: [facility] [place] Work Phone: Start: 84-82-8385Tpzgtrgzgg RecurringMD Mateus Hoy Work Phone: [facility] [place] Work Phone: Start: 06-20-2023 End: 21-64-7669imbiffshzlZroqn M Musser PA-C Work Phone: Hematology/OncologyComment on above: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, estrogen receptor positive (HCC) (Primary Dx); Stage 3a chronic kidney disease (HCC)Start: 06-20-2023 End: 67-12-7007Lwvswse encounter procedureWinnie Farris PA-C Work Phone: SANDUSKYStart: 06-01-2023 End: 29-11-5738szpmybisjjUsdumjc [place] Other [employer] Other Start: 19-52-9545Jelcyh outpatient visit 15 minutes Christiano MarreroOscar Vascular SurgeryStart: 04-06-2023 End: 44-90-6928iazrkovmacQQTWTLH M HOMarietta Memorial Hospitalmodesta [facility] Hospitaltart: 03-09-2023 End: 85-93-8480ircnnpxqazZtksvj [employer]uttino Other [employer] Other Start: 84-53-2692Qzzzzdv encounter procedureJackie RuttinoFPG Vascular SurgeryStart: 03-06-2023 End: 42-74-5354apgufklwgeAXAFNXDUYXP LUTMAN [facility] Start: 02-14-2023 End: 29-66-2543hgmwktmxvwMpqekDeyvi Stone MD Work Phone: Hematology/OncologyComment on above: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, estrogen receptor positive (HCC) (Primary Dx); Rash; Other eczema; Stage 3a chronic kidney disease (HCC)Start: 02-14-2023 End: 22-85-2819Esslsiw encounter Gita Stone MD Work Phone: SANDUSKYStart: 01-19-2023 End: 75-91-0940wfvglsbtnjSJ DOUGLAS HOY .Facility:S6Ucfvw: 12-08-2022 End: 05-69-8197sfukgbicrdOqptlv Ruttino Other [employer] Other Start: 38-09-7518Gkbebzxls encounterJackie RuttinoFPG Vascular SurgeryStart: 12-07-2022 End: 80-84-2316amtsswyspzIanvgq Ruttino Other [employer] Other Start: 85-03-3175Viopruz encounter procedureJackie RuttinoFPG Vascular SurgeryStart: 11-29-2022 End: 71-18-6176Mjyynjesy to same day surgery center Mateus Perry Work Phone: [facility] Work Phone: Start: 11-29-2022 End: 37-09-0306pyuagtjyxbYT Mateus Perry Work Phone: [facility] Work Phone: Start: 11-24-2022 End: 01-97-9632ksqaqehokaOFOTRI [facility] Centertart: 11-24-2022 End: 60-96-3169Lwvfdgzayu hospital visit by physicianMateus Perry MD Work Phone: stvZ SD LAB DOCTORStart: 11-23-2022 End: 59-15-0981ollxdocmjlWyupxgh [place] Other [place] [employer] Other Start: 58-70-7352Njwrmm outpatient new 60 minutes Christiano GonzalesFPG Vascular SurgeryStart: 11-22-2022 End: 41-67-6257bshircaxgzEiikvox R NILLFacility:NICK BellevueStart: 11-16-2022 End: 42-10-6003pgkglycwtxTM MATEUS PERRY .Facility:G9Olsah: 11-09-2022 End: 09-87-1335ecqfcardihOfjur Karamlou MD Work Phone: Hematology/OncologyComment on above: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, estrogen receptor positive (HCC) (Primary Dx); Claudication in peripheral vascular disease (HCC)Start: 11-09-2022 End: 07-94-5608Ohjhahf encounter procedureWallace Stone MD Work Phone: SANDUSKYStart: 41-15-6534Qpupeulce encounterWallace Stone MD Work Phone: Cancer Appts MCComment on above:Referral Information (Vascular Consult)Start: 11-08-2022 End: 06-67-9177ykaxqrialnKwfkpka R NILLFacility:[facility]utetart: 11-08-2022 End: 35-09-2528Litzofj encounter procedureMichael R NILL General Surgery Nill/Said Lindy Start: 11-04-2022 End: 38-63-7686nwyemzfxisWikddta R NILLFacility:[facility] Institutetart: 11-04-2022 End: 60-99-5495Hpiujos encounter procedureMichael R NILL General Surgery Nill/Said Lindy Start: 11-02-2022 End: 76-52-2022mzcrgussnfQP MATEUS PERRY .Facility:S5Ieslb: 10-25-2022 End: 62-36-5141ibybhuocbxFwsohyw R NILLFacility:[facility] Centerrt: 10-25-2022 End: 57-88-1974Njiyuis encounter procedureMichael R NILL General Surgery Nill/Said [place] Start: 10-19-2022 End: 27-04-9976sxqckrtkaeFG ILIANA GAGNON .Facility:S5Bmbxt: 52-87-9834dfgqwytgpj DR ILIANA GAGNON .Facility:M9Tjfwr: 26-88-2411Ebrbehoub for preprocedural laboratory examinationDR ILIANA BatresLicking Memorial Hospitaltart: 10-11-2022 End: 56-11-7622nxegcrmedjQR MICHAEL NILL .Facility:O5Kwhlt: 10-11-2022 End: 18-54-3609Dzlbintai for preprocedural laboratory examinationDR ILIANA GAGNON .Facility:G9Rchib: 09-30-2022 End: 80-85-3464jluxncvzgmGY DOUGLAS HOY .Facility:R5Jfvlz: 59-68-9914Gfbtxnubz encounterHeavenly Wilkerson RN Work Phone: Hematology/OncologyComment on above:Care Coordination (Surgery update)Start: 09-22-2022 End: 82-11-9361syhcigblukBgxzcDeyvi Stone MD Work Phone: Hematology/OncologyComment on above: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, estrogen receptor positive (HCC) (Primary Dx)Start: 09-22-2022 End: 64-33-1580Yziimej encounter Gita Stone MD Work Phone: SANDUSKYComment on above:Malignant neoplasm of upper- outer quadrant of right breast in female, estrogen receptor positive (HCC) (Primary Dx)Start: 09-21-2022 End: 45-39-4056fmaouxjxrbLQ MATEUS HOY .Facility:X5Butwp: 79-89-3316Kcunj abstractKrishna Stone MD Work Phone: Hematology/OncologyStart: 09-16-2022 End: 46-30-9343kumnxgouhaWU DOCTOR MISCFacility:L4Rzriw: 09-09-2022 End: 28-44-5469gibqkbnxmwPjlklic R NILLFacility: BellevueStart: 09-09-2022 End: 53-39-2302Qynbtxy encounter procedureMichael R NILL General Surgery Nill/Said [place] Start: 81-06-4971ejezloqrcuCG MATEUS HOY .Facility:H1 Start: 08-23-2022 End: 79-56-3597drmpkxbfbnLG MATEUS HOY .Facility:C7Zjzdp: 24-97-1100hvrvyywewb Iliana R NILLFacility: BellevueStart: 08-19-2022 End: 55-47-2804cmavwpmxqsOD MATEUS HOY .Facility:Q5Zcmfu: 08-14-2022 End: 56-37-3219invigyfqouAH MATEUS HOY .Facility:C1Axabp: 08-11-2022 End: 76-62-0047dbsoiuvvgrLW MATEUS HOY .Facility:R5Alyer: 08-08-2022 End: 52-93-4432zzdevwrkiuDE MATEUS HOY .Facility:E6Xgonw: 08-02-2022 End: 67-80-4110bfbnrzdprhBG MATEUS HOY .Facility:T8Ycopi: 07-19-2022 End: 34-77-3004nhnbnyxvgtYV MATEUS HOY .Facility:C4Wylwd: 06-28-2022 End: 39-75-6388Swnabncmmo hospital visit by Shanti Garza MD Work Phone: stvz ORComment on above:Vaginal dysplasiaStart: 06-22-2022 End: 34-91-6721flvbzgjlvwJJIEOWA TUCKERFacility:A9Qxikx: 79-50-2913oybyglplnv SONALI TUCKERFacility:V6Xlhrd: 04-12-2022 End: 79-45-5374jkqjttvwefWSRKTOE TUCKERFacility:Q3Nwqzk: 03-17-2022 End: 57-56-9129wvsziksqeuTB MATEUS HOY .Facility:E5Bciuc: 03-16-2022 End: 58-79-0737vnanixgqerPN MATEUS HOY .Facility:Y8Iphwu: 03-15-2022 End: 85-44-0999csbrwcorrtMIKJYYP TUCKERFacility:R8Vhixg: 02-15-2022 End: 22-09-6497ujymntekeaDSRGWOG TUCKERFacility:N1Fobuc: 02-09-2022 End: 58-12-8636vepovujbueOALXQQB TUCKERFacility:N7Gncks: 12-13-2021 End: 97-89-9681Qlnorlrsov hospital visit by Shanti Garza MD Work Phone: stvz ORComment on above:Post-operative state (Primary Dx)Start: 12-06-2021 End: 31-98-5302Vocauwxlnm hospital visit by physicianSyao [facility] RadiologyComment on above:ArrivedStart: 12-06-2021 End: 93-80-6731Iceshdg encounter statusStvsandra 2STVZ Pre-Admit TestingStart: 12-06-2021 End: 59-39-4582Yeqqcoaasp hospital visit by physicianSruiz Hendrix 2STVZ Pre-Admit TestingComment on above:Pre-op chest examStart: 06-15-2021 End: 20-24-5189Mmmlkvsfuj hospital visit by Wallace Abarca MD Work Phone: stVZ ORStart: 05-12-2021 End: 89-46-6181Piqksbyyik hospital visit by Francisco Hendrix [facility] RadiologyComment on above:ArrivedStart: 05-12-2021 End: 44-07-7557Wjlmfti encounter statusStvz 1STVZ Pre-Admit TestingStart: 05-12-2021 End: 19-14-9605Uybynjsjqu hospital visit by physicianSruiz Hendrix 1STVZ Pre-Admit TestingComment on above:Pre-op chest exam Procedures DateProcedureProcedure DetailPerforming ClinicianStart: 43-12-0527L-ray of lumbar spine, two or three viewsMateus Perry MD Work Phone: Start: 52-03-2519Cfqpv x-ray of pelvis and lower extremityMateus Perry MD Work Phone: [phone]-art: 57-56-4545E-ray of both knees, two viewsMateus Perry MD Work Phone: Start: 80-56-7203Fhgqo brachial pressure indexMD Mateus Hoy Work Phone: [phone]: 88-22-0926Zyffgl scan of lower limb veinsMD Mateus Hoy Work Phone: Start: 92-88-9615NzuwwabewqEN Mateus Hoy Work Phone: [phone]-art: 68-73-7014Uogbwrdomv of right breastMichael NILL Start: 65-29-8864Zpbnbje blood reagent stripChristopher Kayla CARDONA Work Phone: Start: 37-60-6330VYMXZDY, IONIC (POC)Emma Garza MD Work Phone: Start: 53-60-2399Spyqmdag [Moles/volume] in Serum or PlasmaChosmintopher Kayla CARDONA Work Phone: Start: 01-81-7018FVHTWEIDSM W/GFR POINT OF CARE Emma Garza MD Work Phone: Start: 70-58-0374Fwoj bld gluc mntr dev cleared fda spec home useChosmintopher Kayla CARDONA Work Phone: Start: 13-92-9562TZQWVP ACID,POINT OF CAREEmma Garza MD Work Phone: Start: 43-43-3207Ykyzjdwpu [Moles/volume] in Serum or PlasmaChristopher Kayla CARDONA Work Phone: start: 59-50-4073Ghfebr [Moles/volume] in Serum or PlasmaSamueltopher Kayla CARDONA Work Phone: Start: 43-82-6042Zjc routine ecg w/least 12 lds w/i&r Jimy Remy MD Work Phone: Start: 89-46-1939Uusw bld gluc mntr dev cleared fda spec home useEmma Garza MD Work Phone: Start: 28-79-5341Apkitgdjt [Moles/volume] in Serum or PlasmaEmma Garza MD Work Phone: Start: 75-05-1150Fladodug screenStvz 2Start: 10-74-5456Nkhqn of magnesiumAlyssa Kimmie PA-C Work Phone: Start: 51-12-0166Ywpglbfcan exam chest 2 viewsAlyssa Kimmie PA-C Work Phone: Start: 16-51-0808Jtg routine ecg w/least 12 lds i&r onlyAlyssa Kimmie PA-C Work Phone: Start: 55-10-3305Bqazu typing serologic aboAlyssa Kimmie PA-C Work Phone: Start: 06-15-2021H/O: surgeryS/p Partial vaginectomy with Ultrasonic Scalpel 06/15/21Eric Nikolai Abarca MD Work Phone: Start: 04-47-7614Ztvvtpo blood reagent stripEric Nikolai Abarca MD Work Phone: Start: 78-17-3002CFKXRVDVRX W/GFR POINT OF CAREEric Nikolai Abarca MD Work Phone: Start: 06-65-4247Pqyl bld gluc mntr dev cleared fda spec home useEric Nikolai Abarca MD Work Phone: Start: 84-21-1289Rcbwuefuu [Moles/volume] in Serum or PlasmaKin Abarca MD Work Phone: Start: 87-63-8608FPWVL METABOLIC PANEL W/ REFLEX TO MG FOR LOW KAlyssa Kimmie PA-C Work Phone: Start: 70-81-8725Ijjoo count complete auto&auto difrntl wbcAlyssa Kimmie PA-C Work Phone: Start: 63-70-7027Kzphqzznch exam chest 2 viewsAlyssa Kimmie PA-C Work Phone: Start: 61-95-2403Vqj routine ecg w/least 12 lds i&r onlyAlyssa Kimmie PA-C Work Phone: Start: 01-84-9502Noblnhsz screenComment on above: Performed By: #### [id number] #### [address] [place] [address], USAStart: 38-45-5823Yjbasxt of placement of stent for coronary artery [...] Plan of Treatment DateCare ActivityDetailAuthorStart: 07-03-2025 End: 97-27-1704Upncnle encounter nrtrytpep32/23/2025 1:50 PM EDT Office Visit [facility] [address] [facility] [address] [place] [address] Peyman Hensley DPM [address] [facility] [address] [place] [address] Diabetes mellitus due to underlying condition with diabetic polyneuropathy, 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 correction insulin use (HCC) (Primary Dx); Pain due to onychomycosis of toenails of both feet; Venous insufficiency; Acquired deformity of left toe; Neoplasm of uncertain behavior of skinNOMS CI PODIATRYComment on above:Diabetes mellitus due to underlying condition with diabetic polyneuropathy, 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 (HCC) (Primary Dx); Pain due to onychomycosis of toenails of both feet; Venous insufficiency; Acquired deformity of left toe; Neoplasm of uncertain behavior of skinStart: 98-59-7208Wlzazqvrn vaccination Influenza Vaccine (#1)[facility] HealthcareStart: 04-08-2025 End: 42-22-9752Udcdyq-up fivkrkdwe82/29/2025 1:30 PM EDT Visit (SP) Office Hematology/Oncology [address] [place] [address] [address] [place], [place] [phone] Vaibhav Ashton MD [address] [facility] [place] [address] 6 month follow upHematology/OncologyComment on above:6 month follow upStart: 04-08-2025 End: 53-71-5033Mzluiwf encounter bdgtyczhy82/29/2025 1:15 PM EDT Office Visit [facility] [address] [place] [address] labsNortHuron [facility] LaboratoryComment on above:labsStart: 11-21-2024 End: 08-13-4129Zkzhbml encounter wyhhawnoa10/13/2025 2:40 PM EDT Office Visit [facility] [address] [place] [phone] Peyman Hensley DPM [address] [address] Diabetes mellitus due to underlying condition with diabetic polyneuropathy, 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 (CMS/HCC) (Primary Dx); Pain due [...] with fat layer exposed (CMS/HCC)Start: 11-07-2024 End: 29-83-3221Mkzohoq encounter cpupkuqnk94/27/2025 10:00 AM EST Office Visit [facility] [address] [place] [address] Peyman Hensley DPM [address] [address] [facility] PODIATRYStart: 98-61-4005BglgolgdbLutheran Hospitaltart: 10-08-2024 End: 11-20-5302Suneqpafg (Vitamin B12) [Mass/volume] in Serum or PlasmaKindred Hospital LimaComment on above:Expected: 10/08/2024, Expires: 01/07/2025Start: 10-08-2024 End: 91-53-9371Bdkcekwp [Mass/volume] in Serum or PlasmaKindred Hospital Lima [facility] Work Phone: comment on above:Expected: 10/08/2024, Expires: 01/07/2025Start: 10-08-2024 End: 54-96-0108Bmioyq [Mass/volume] in Serum or PlasmaKindred Hospital LimaComment on above:Expected: 10/08/2024, Expires: 01/07/2025Start: 10-08-2024 End: 10-05-2455Spbt and Iron binding capacity panel - Serum or PlasmaKindred Hospital LimaComment on above:Expected: 10/08/2024, Expires: 01/07/2025Start: 10-08-2024 End: 85-23-6104eqaanuylhv20/28/2025 1:00 PM EST Visit (SP) Office Hematology/Oncology [address] [place] [address] [address] [place], [place] [phone] Vaibhav Ashton MD [address] [place] [address] [place] [address] AAMIR from [facility] wanted to transfer to [place] Hematology/OncologyComment on above:AAMIR from [facility] wanted to transfer to [facility]: 10-08-2024 End: 61-96-9272Aetclox encounter /28/2025 12:45 PM EST Office Visit [facility] [address] [place] [address] [place] [address] AAMIR from [facility] LaboratoryComment on above:AAMIR from [facility] wanted to transfer to [facility]: 10-04-2024 End: 77-30-9275MNL W Auto Differential panel - BloodCOMPLETE BLOOD COUNT AND DIFFERENTIAL Lab Routine 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, estrogen receptor positive (HCC) Expected: 10/04/2024, Expires: 01/03/2025 [facility] Work Phone: Comment on above:Expected: 10/04/2024, Expires: 01/03/2025Start: 10-04-2024 End: 21-62-6934Puezlpqkouqth metabolic 2000 panel - Serum or PlasmaCOMPREHENSIVE METABOLIC PANEL Lab Routine 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, estrogen receptor positive (HCC) Expected: 10/04/2024, Expires: 01/03/2025[facility] ClinicComment on above:Expected: 10/04/2024, Expires: 01/03/2025Start: 59-16-0401Ppnafdy Directive DiscussionAdvance Directive DiscussionHarrison Community Hospitaltart: 08-29-2024 End: 74-84-8389Xmaptlg encounter procedureNOMS CI PODIATRYComment on above: 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) (Primary Dx); Diabetes mellitus due to underlying condition with diabetic polyneuropathy, 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 (CMS/HCC); Pain due to onychomycosis of toenails of both feet; Venous insufficiencyStart: 08-45-8898Dbmqwxptpy/HematocritHemoglobin/Hematocrit [facility] Hospitaltart: 30-40-8681Xhzaq CreatinineSerum CreatinineHarrison Community Hospitaltart: 86-72-3355Dofcz-19 Vaccine ( season)Covid-19 Vaccine ( season)[facility] Hospitaltart: 27-56-1449Sjcyqkpui vaccinationInfluenza Vaccine (#1)[facility] HealthcareStart: 74-86-5225WCVCTFAWKB/HEMATOCRIT HEMOGLOBIN/HEMATOCRITHarrison Community Hospitaltart: 78-05-5087GLYHN CREATININESERUM CREATININEHarrison Community Hospitaltart: 06-16-2023 End: 91-83-1837QRK W Auto Differential panel - BloodCBC + DIFF Lab Routine 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, estrogen receptor pos itive (HCC) Expected: 06/16/2023 (Approximate), Expires: 08/16/2023[facility] Work Phone: Comment on above:Expected: 06/16/2023 (Approximate), Expires: 08/16/2023Start: 06-16-2023 End: 06-64-3323Ppeeukyzstnrw metabolic 1999 panel - Serum or PlasmaCOMP METABOLIC PANEL Lab Routine 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, estrogen receptor positive (HCC) Expected: 06/16/2023 (Approximate), Expires: 08/16/2023[facility] Work Phone: Comment on above:Expected: 06/16/2023 (Approximate), Expires: 08/16/2023Start: 35-25-7182Dseoq-19 Vaccine ()Covid- 19 Vaccine ()[facility] Hospitaltart: 04-61-0444Obopqoufp vaccinationHarrison Community Hospitaltart: 04-12-2023 End: 39-87-2856Xkyezzf encounter yfdlobufd91/02/2023 Office Visit Gynecologic Oncology Latonia Brush PA-C [address] [place] [address] [facility] Gynecologic Oncology ServicesStart: 02-09-2023 End: 66-79-2686ZPK W Auto Differential panel - BloodCBC + DIFF Lab Routine 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, estrogen receptor pos itive (HCC) Expected: 02/09/2023 (Approximate), Expires: 04/11/2023[facility] Work Phone: Comment on above:Expected: 02/09/2023 (Approximate), Expires: 04/11/2023Start: 02-09-2023 End: 29-59-1248Rxuyomlsufcyg metabolic 2000 panel - Serum or PlasmaCOMP METABOLIC PANEL Lab Routine 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, estrogen receptor positive (HCC) Expected: 02/09/2023 (Approximate), Expires: 04/11/2023[facility] Work Phone: Comment on above:Expected: 02/09/2023 (Approximate), Expires: 04/11/2023Start: 05-20-1738Pcdmxlxrv monitoringPotassium monitoring [facility] HealthStart: 97-61-1074Pmfvnrvzpt measurementCreatinine monitoringAshtabula General Hospital HealthStart: 60-82-8765Omgxetblk monitoringPotassium monitoringMercy Health Start: 11-29-2022 End: 13-96-3346UvdqnuquqLutheran Hospitaltart: 31-64-0780IJCAIAE DIRECTIVE DISCUSSIONADVANCE DIRECTIVE DISCUSSIONHarrison Community Hospitaltart: 94-26-5248TILAHBQNBG ASSESSMENTDEPRESSION ASSESSMENTHarrison Community Hospitaltart: 07-27-2022 End: 25-75-3825Hmdwvpo encounter wrlaxmptn00/16/2022 Office Visit Gynecologic Oncology Emma Garza MD [address] [facility] [address] [place] [address] [facility] Gynecologic Oncology Services Start: 06-28-2022 End: 05-77-1741XQKAQ VAGINAL CERVIX LESION EXCISION LASERVULVA VAGINAL CERVIX LESION EXCISION LASER Vaginal dysplasia 06/28/2022 9:04 AM [facility]: 25-07-7119Ffsyeqbxah measurementCreatinine monitoring [facility] Work Phone: start: 38-50-7680Kbupzsaoa monitoringPotassium monitoringMercy Health Work Phone: start: 70-45-9179Safqujyljf measurementCreatinine monitoringMercy Health Work Phone: start: 02-56-5139Eokkzattw vaccinationINFLUENZA (#1) [facility] Hospitaltart: 31-42-4267Zqgmhdsan monitoringPotassium monitoringMercy Health Work Phone: start: 94-37-4730Byyorhopu vaccinationFlu vaccine (#1) [facility]Start: 01-14-2022 End: 59-25-3628Qlyxsyz encounter caoqqeqmt83/06/2022 Office Visit Gynecologic Oncology Latonia Burks PA-C [address] [facility] [address] [place], [place] [id number] [facility] Gynecologic Oncology ServicesStart: 12-13-2021 End: 23-55-6006HVSNPJIHOWIQcyzkSelect Medical [facility] Rehabilitation Hospitaltart: 12-13-2021 End: 41-29-5881Fiylbagrj to same day surgery centerSTVZ ORComment on above: VAGINECTOMY, CYSTOSCOPYCYSTOSCOPY, VAGINECTOMYStart: 60-23-6796Qvmbvagrwb hospital visit by /04/2022 Hospital Encounter IP Unit Emma Garza MD [address] [facility] [address] [place], [place] [id number] [facility] ORStart: 12-13-2021 End: 17-57-0844Sjgipnvdebx complete removal vaginal wallVAGINECTOMY VAGINAL DYSPLASIA, RULE OUT CANCER 12/13/2021 10:20 AM EDKettering Health Troytart: 03-77-2714Vngoxz Wellness Visit (AWV)Annual Wellness Visit (AWV) [facility]Start: 75-55-2232KXWTS-19 VACCINE (4 - Booster for Moderna series) COVID-19 VACCINE (4 - Booster for Moderna series)[facility] Hospitaltart: 07-01-2021 End: 99-92-4922Jsflqfm encounter phoflqzry52/21/2021 Office Visit Gynecologic Oncology Kin Abarca MD [address] [facility] [address] [place] [address] [phone] [facility] Gynecologic Oncology ServicesStart: 11-35-9843Gpkhuegwo vaccinationFlu vaccine (#1)[facility] Work Phone: start: 32-49-1757HWVQJ-19 Vaccine (3 - Booster for Moderna series)COVID-19 Vaccine (3 - Booster for Moderna series)[facility] Start: 42-91-4131Acbinazbhd A1c vxmicggxaxoPiD1KYqhedwdsi ClinicStart: 30-77-9463Irxtbuifrx A1c/Hemoglobin.total in KmjvuNGF2JGvjilarmz ClinicStart: 59-04-3208Yxqxlqwamhbp Vaccine: 50+ (2 of 2 - PCV)Pneumococcal Vaccine: 50+ (2 of 2 - PCV)[facility]: 20-15-3578Nsvyhxrbimhw Vaccine: 65+ (2 - PCV) Pneumococcal Vaccine: 65+ (2 - PCV)[facility]: 89-66-2875Ojsesugesyer Vaccine: 65+ Years (2 of 2 - PCV)Pneumococcal Vaccine: 65+ Years (2 of 2 - PCV) [facility] SystemStart: 86-23-0235SOAMFRTATSCK: 65+ (2 - PCV)PNEUMOCOCCAL: 65+ (2 - PCV)[facility] Hospital[facility]: 08-52-5188GXJ Vaccine (1 - 1-dose 75+ series)RSV Vaccine (1 - 1-dose 75+ series)[facility]: 03-19-7159QNME DENSITYBONE DENSITYHarrison Community Hospitaltart: 62-17-2983Jorl Density ScreeningBone Density ScreeningOur Lady of Mercy Hospitalrt: 32-83-3880Vpuijevmiqcp 65+ years Vaccine (1 - PCV)Pneumococcal 65+ years Vaccine (1 - PCV)[facility]: 22-06-5008Ldcmiczyxfqt 65+ years Vaccine (1 of 1 - PPSV23)Pneumococcal 65+ years Vaccine (1 of 1 - PPSV23)[facility]: 38-30-0849Tegttopte for osteoporosisBone Density ScreeningOur Lady of Mercy Hospitalrt: 59-14-3475Wpjtpqptd B Vaccine (1 of 3 - Risk 3-dose series)Hepatitis B Vaccine (1 of 3 - Risk 3-dose series)[facility] Hospital[facility]: 25-25-1332Yqutvrmuf for osteoporosisDEXA (modify frequency per FRAX score)[facility]: 80-94-9676Wfvewzwo Vaccine (1 of 2) Shingles Vaccine (1 of 2)[facility]: 99-39-6426LRCVIHFV VACCINE (1 of 2) SHINGRIX VACCINE (1 of 2)[facility] Hospitalrt: 58-14-1559PEpW/Tdap/Td vaccine (1 - Tdap)DTaP/Tdap/Td vaccine (1 - Tdap)[facility]: 39-37-4311Ztfuz microalbumin profileOur Lady of Mercy Hospitalrt: 98-19-3274DQKPXA PCP TEAM CHRONIC DISEASE VISITANNUAL PCP TEAM CHRONIC DISEASE VISITHarrison Community Hospitaltart: 65-84-2167Grgguxx ScreeningAnxiety ScreeningHarrison Community Hospitaltart: 30-81-4365LW CONTROLLED (<130/80)BP CONTROLLED (<130/80)[facility] 1958 Depression ScreeningDepression ScreeningHarrison Community Hospitaltart: 1958 Hepatitis B surface antibody levelLDL CHOLESTEROLHarrison Community Hospitaltart: 82-78-9568Rytdndprv C screeningHepatitis C screenBON FIRELANDS [facility]AMPUSStart: 09-14-1629Xpeiyshqbi ScreenDepression ScreenMercy Health St. Joseph Warren HospitalStart: comp foot exam completedDIABETIC FOOT EXAMHarrison Community Hospitaltart: 37-91-2719Kuxjxeof foot examinationDiabetic Foot ExamHarrison Community Hospitaltart: 93-86-1539Crqwmyiu screeningDilated Retinal ExamHarrison Community Hospitaltart: 80-05-2260Aalfsezyr B screeningURINE ALBUMIN:CREATININE RATIOHarrison Community Hospitaltart: 1950 Hepatitis C antibody, confirmatory testDILATED RETINAL EXAMKindred Hospital L[facility] Start: 30-42-4596Etjte panelMercy Health St. Joseph Warren HospitalStart: 91-70-9039Ebuvnyolo C screening Hepatitis C screenMercy Health St. Joseph Warren HospitalEKG 12 LeadEKG 12 Lead ECG STAT 06/28/2022 7:29 AM EDTBON [facility] CENTERSustaining Technologies [facility]USPK Clean Phone: Homogenous nuclear Ab pattern [Titer] in Serum [facility]: 83-40-7118HJQNRIJF PACU OXYGEN THERAPY PROTOCOLInitiate PACU Oxygen Therapy Protocol Respiratory Care Routine Continuous until discontinued starting 12/13/2021[facility]Room Phone: Comment on above:Continuous until discontinued starting 12/13/2021 End: 08-37-1083PUJPJGUG PACU OXYGEN THERAPY PROTOCOLInitiate PACU Oxygen Therapy Protocol Respiratory Care Routine Continuous until discontinued starting 06/28/2022ON [facility]ENTERSustaining Technologies [facility]USPK Clean Phone: comment on above:Continuous until discontinued starting 06/28/2022 End: 89-34-1136OKY DIAGNOSTIC BILATERALMAM DIAGNOSTIC BILATERAL Radiology Routine 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, estrogen receptor positive (HCC) 1 Occurrences starting 06/20/2023 until 07/19/2024 [facility] Work Phone: Comment on above:1 Occurrences starting 06/20/2023 until 07/19/2024Nuclear Ab [Titer] in SerumLake County [facility] Patient referralGenesis Hospital Work Phone: Spirometry panelIncentive spirometry Respiratory Care Routine Every 2hr while awake until discontinued starting 12/13/2021[facility]Room Phone: comment on above:Every 2hr while awake until discontinued starting 12/13/2021urgical PathologySurgical Pathology Lab Routine Release Upon Ordering for 1 Occurrences starting 06/15/2021[facility] HospitalRoom Phone: comcabm on above:Release Upon Ordering for 1 Occurrences starting 06/15/2021urgical PathologySurgical Pathology Lab Routine Release Upon Ordering for 1 Occurrences starting 12/13/2021[facility] HospitalRoom Phone: comment on above:Release Upon Ordering for 1 Occurrences starting 12/13/2021urgical PathologySurgical Pathology Lab Routine Vaginal dysplasia Release Upon Ordering for 1 Occurrences starting 06/28/2022[employer] Phone: comxajt on above:Release Upon Ordering for 1 Occurrences starting 06/28/2022 End: 10-07-1592SCTQDUWR PATHOLOGY REPORTSURGICAL PATHOLOGY REPORT Lab Routine Once for 1 Occurrences starting 06/28/2022 until 06/28/2022[employer] Phone: comssrh on above:Once for 1 Occurrences starting 06/28/2022 until 06/28/2022 End: 20-61-3889XIQWLTAZ PATHOLOGY REPORTSURGICAL PATHOLOGY REPORT Lab Routine Once for 1 Occurrences starting 11/24/2022 until 11/24/2022[employer] Phone: comment on above:Once for 1 Occurrences starting 11/24/2022 until 11/24/2022[facility] Immunizations Immunization DateImmunizationNotesCare PfzfynjuKkyfjkic55-69-0961xlxqquppv virus vaccine, unspecified formulationPeyman Hensley DPM Work Phone: [facility] SystemQuzxtqqmob96-46-5454rjeqlxztg virus vaccine, unspecified formulationMichael NILL GeneSt. John's Hospital CamarilloQunrqjqn93-81-4801MORU-UaG-5 (COVID-19) jYHE-5761 vaccineMichael NILL [facility] HospitalLombzvwc53-05-3998tkiavbyhu (HD-IIV4) vaccine, age 65+ yr, high dose, quadrivalent, PF (FLUZONE HIGH-DOSE)Wallace Stone MD Work Phone: [facility]imaDswrcu93-88-3025kbfssnizp virus vaccine, unspecified formulationWinnie Farris PA-C Work Phone: [facility] LimaXuzlfv45-05-6265XSBFR-98, Moderna, PF, 100mcg/0.5mLStv XrMercy Health St. Joseph Warren HospitalHuqgkj14-66-8918JYSDX-04, Moderna, PF, 100mcg/0.5mLStv [facility] Work Phone: [phone]nf trivalent influenza vaccine, adjuvanted, preservative freeWallace Stone MD Work Phone: [facility] LimaNghgxb01-11-0004wlxmbqszk, high dose seasonal, preservative-freeWallace Stone MD Work Phone: [facility] LimaAvsbjv69-52-5589ogdyhwrnmtkw polysaccharide vaccine, 23 valentWallace Stone MD Work Phone: [facility] LimaRfabck28-25-0743uaiejeuyd, high dose seasonal, preservative-freeWallace Stone MD Work Phone: [facility] LimaFmqptw35-14-3283jrhfmihmg, high dose seasonal, preservative-freeWallace Stone MD Work Phone: [facility] LimaPnuwvg04-38-3936rjplnonnpwgk polysaccharide vaccine, 23 valentWallace Stone MD Work Phone: [facility] LimaZvsdqt42-95-7030jmweltrmw virus vaccine, whole virusWallace Stone MD Work Phone: [facility] Payers DatePayer CategoryPayerPolicy [id number] [id number] 2008Medicare [id number] Health Insurance 1.2.840.290081.1.13.693.2.7.9.004965.037721.57975-14-9694Gvdhpvp 1.2.840.109867.1.13.159.2.7.3.702117.17876-36-0612Gaqftig234797-25 1.2.840.996095.1.13.239.2.7.3.742070.315 [id number] 1.2.840.819707.1.13.239.2.7.3.706975.55361-42-2174Ulzn-ijs05156358204-45-6431 [id number] 2.16.840.0.789999.21549805-80-5563Jolrmqe5963501 2.16.840.1.333761.3.579.2.10697-76-2634Bvpivpy9184021 2.16.840.1.912515.3.579.2.08790-61-6552Wrvvjuv7405670 2.16.840.1.174440.3.579.2.55007-87-6016Yvfhlod8369532 2.16.840.1.708714.3.579.2.51834-54-1033Gknqkvf5584029 2.16.840.1.291961.3.579.2.71168-47-0042Nntlbyo3572231 2.16.840.1.094345.3.579.2.41508-93-8215Fmebsed0252042 2.16.840.1.134359.3.579.2.16586-50-2471Sgnpfah2393397 2.16.840.1.591890.3.579.2.38099-22-7036Joemaec7892882 2.16.840.1.203048.3.579.2.93636-13-1673Wvzwhjj2426111 2.16840.1.889944.3.579.2.43314-60-8475Gyeyktk0094642 2.16840.1.808109.3.579.2.61630-53-1212Tzuvmbw2778813 2.16840.1.066866.3.579.2.24690-13-0536Bezmxep5523187 2.16.840.1.432142.3.579.2.54531-92-3748Ezbfeoy0897631 2.16.840.1.825376.3.579.2.13163-25-2425Pmpzybh4839992 2.16840.1.000978.3.579.2.30022-16-8039Fuyxmnv9401552 2.16.840.1.269770.3.579.2.93059-76-6785Ebvliog7139313 2.16840.1.801072.3.579.2.48746-59-8010Dntvitw1813115 2.16.840.1.102835.3.579.2.46370-92-9683Bdvseiw2551729 2.16840.1.239700.3.579.2.59321-99-4575Vhjdrly9932578 2.16.840.1.707305.3.579.2.48765-79-5888Vnjicsm6664974 2.16.840.1.257511.3.579.2.82182-69-5546Lgyqisw8870010 2.16.840.1.904536.3.579.2.63555-20-6651Mqwuekm8518260 2.16.840.1.287330.3.579.2.89631-78-0512Bdaaqlw3074025 2.16.840.1.029600.3.579.2.57520-32-4761Fybpzfg3478017 2.16.840.1.947858.3.579.2.18603-42-2769Exkmfgc4465445 2.16840.1.562551.3.579.2.41287-42-1189Pcxjmlv9701070 2.16.840.1.536568.3.579.2.02772-82-7995Zxtunof77827650 2.16.840.1.792672.3.579.2.12754-08-2727Pdyalrj11525695 2.16.840.1.604527.3.579.2.21227-88-7134Vfzipjf62455714 2.16.840.1.526841.3.579.2.53917-15-6596Mchyvma57127740 2.16.840.1.645923.3.579.2.22731-53-4405Xanzegy97542106 2.16.840.1.828868.3.579.2.76632-28-3875Ycffepz74716513 2.16.840.1.310431.3.579.2.86369-97-1680Nsvyefw13120241 2..840.1.278536.3.579.2.25763-80-5300Vxmtcjd481933813 2..840.1.979006.3.579.2.42584-62-7507Usxbuyr090857455 2..840.1.994192.3.579.2.83259-37-5768Jbktrbg402956930 2.840.1.483850.3.579.2.47132-66-6092Lrncnie96651138 2..840.1.114061.3.579.2.536758-38-7566Uywhbnk2024571 2.840.1.322439.3.579.2.733898-64-7607Yosdsst0769077 2.0.1.328703.3.579.2.897452-82-9020Rojuway8950430 2.840.1.752053.3.579.2.333091-02-2666Gunznsb992490237 2.840.1.497630.3.579.2.196Medicare270389004D 241o6962-31cp-13jl-1lz1-90142026r665Rhlizus79625742 2.840.1.061230.3.579.2.858Fuqchzd91981772 2.16840.1.330770.3.579.2.531 Iqwmnoz07589608 2.16840.1.347440.3.579.2.060Rkkghwy22164535 2.16840.1.524090.3.579.2.178Zkmtyra67366312 2.840.1.976359.3.579.2.531 Social History DateTypeDetailFacilityStart: 05-12-2021 End: 53-96-0467Urpplqy smoking status NHISFormer smokerAshtabula General Hospital Runnit Phone: start: 09-11-1960 End: 48-59-2991Ehnuvfk of tobacco useCurrent smokerMercy Health St. Joseph Warren HospitalStart: 09-11-1962 End: 15-12-6048Gsdwvfj of tobacco useCigarette SmokerMercy Health St. Joseph Warren HospitalStart: 05-12-2021 End: 97-10-8216Dhiklum use and exposureNever usedGuernsey Memorial HospitalEkahau [facility] HospitalStart: 05-12-2021 End: 39-90-7329Fuducfr intakeEx-drinker (finding)[employer] Phone: start: 33-51-2862Oke Assigned At BirthNot on fileGuernsey Memorial HospitalRoom Phone: start: 11-26-2021 End: 75-04-0911Httikang to SARS-CoV-2 (event)Not sureMercy Health [address]. Joseph Warren HospitalStart: 06-15-2021 End: 50-70-8381Fywsskwlkq smoked current (pack per day) - ReportedProMedica Fostoria Community Hospitaltory of tobacco usePassive smokerBON SECOURS [employer] Phone: start: 87-03-4680Jxbcvhk smoking statusNeverGeneral Surgery BellevueStart: 02-14-2023 End: 97-41-5037Dbl Assigned At [facility] Centertart: 09-19-2022 End: 82-28-4666Gzxrhaq intakeCurrent non-drinker of alcohol (finding)[facility] Community Hospitaltart: 57-33-1842Cyj Assigned At [facility] HospitalTobacco smoking status NHISTobacco smoking consumption unknownNODC HealthcareStart: 06-20-2024 End: 35-16-8180Sdsxrayuu beverage intakeLifetime non-drinker (finding)[facility] HealthcareStart: 10-30-2024 End: 19-21-8193CrwZsecpl (finding)[facility] Medical Equipment Procedure CodeEquipment CodeEquipment Original TextEquipment IdentifierDates Aortogram, abdominal, with bilateral lower extremity runoffIR STENT BLUE 6 X 12 80CMFDAStart: 46-40-7783Dorwukrsh, abdominal, with bilateral lower extremity runoffIR STENT SMART 6 X 120 120CMFDAStart: 10-50-0966Heqhfglvr, abdominal, with bilateral lower extremity runoffIR STENT SMART 6 X 40 120CMFDAStart: 04-25-2019 Aortogram, abdominal, with bilateral lower extremity runoffIR STENT BLUE 6 X 12 80CMFDAStart: 00-77-2241Mhicxcrqd, abdominal, with bilateral lower extremity runoffIR STENT SMART 6 X 120 120CMFDAStart: 00-00-7197Lbndrdnnm, abdominal, with bilateral lower extremity runoffIR STENT SMART 6 X 40 120CMFDAStart: 04-25-2019 Aortogram, abdominal, with bilateral lower extremity runoffIR STENT BLUE 6 X 12 80CMFDAStart: 49-14-0153Edaitgylj, abdominal, with bilateral lower extremity runoffIR STENT SMART 6 X 120 120CMFDAStart: 03-93-1278Xjwzobvkm, abdominal, with bilateral lower extremity runoffIR STENT SMART 6 X 40 120CMFDAStart: 04-25-2019 Aortogram, abdominal, with bilateral lower extremity runoffIR STENT BLUE 6 X 12 80CMFDAStart: 02-48-7291Nuzdcdafl, abdominal, with bilateral lower extremity runoffIR STENT SMART 6 X 120 120CMFDAStart: 81-47-5262Lgolemwfn, abdominal, with bilateral lower extremity runoffIR STENT SMART 6 X 40 120CMFDAStart: 04-25-2019 Aortogram, abdominal, with bilateral lower extremity runoffIR STENT BLUE 6 X 12 80CMFDAStart: 32-73-6679Qrmzeupum, abdominal, with bilateral lower extremity runoffIR STENT SMART 6 X 120 120CMFDAStart: 38-53-2237Yfpwqbqae, abdominal, with bilateral lower extremity runoffIR STENT SMART 6 X 40 120CMFDAStart: 04-25-2019 Aortogram, abdominal, with bilateral lower extremity runoffIR STENT BLUE 6 X 12 80CMFDAStart: 73-14-7849Fhygiuyyu, abdominal, with bilateral lower extremity runoffIR STENT SMART 6 X 120 120CMFDAStart: 32-04-9917Srgtjztzm, abdominal, with bilateral lower extremity runoffIR STENT SMART 6 X 40 120CMFDAStart: 04-25-2019 Aortogram, abdominal, with bilateral lower extremity runoffIR STENT BLUE 6 X 12 80CMFDAStart: 49-51-1281Bqyxitvgl, abdominal, with bilateral lower extremity runoffIR STENT SMART 6 X 120 120CMFDAStart: 04-52-0932Uaystfetc, abdominal, with bilateral lower extremity runoffIR STENT SMART 6 X 40 120CMFDAStart: 04-25-2019 Aortogram, abdominal, with bilateral lower extremity runoffIR STENT BLUE 6 X 12 80CMFDAStart: 61-20-7367Ufcbdvosl, abdominal, with bilateral lower extremity runoffIR STENT SMART 6 X 120 120CMFDAStart: 19-33-8919Mqzewbfjr, abdominal, with bilateral lower extremity runoffIR STENT SMART 6 X 40 120CMFDAStart: 04-25-2019 Aortogram, abdominal, with bilateral lower extremity runoffIR STENT BLUE 6 X 12 80CMFDAStart: 58-41-0679Lbpqxhkvm, abdominal, with bilateral lower extremity runoffIR STENT SMART 6 X 120 120CMFDAStart: 80-88-9356Auovtpmvu, abdominal, with bilateral lower extremity runoffIR STENT SMART 6 X 40 120CMFDAStart: 04-25-2019 Functional Status FqmtYjbjsejqqdZwxbubYetgtpdr32-00-7065Uqvxqrnlzh StatusN/AGeneral Surgery [place] Clinical Notes 05-12-2021 to 07-03-2025 Note Date & VoqfVkgpQqkrwefb30-97-6172 History of Present illness Narrative* Peyman Hensley, [...] No Food Insecurity (09/12/2024) Received from [facility] Hunger Vital Sign Within the past 12 months, you worried that your food would run out before you got the money to buymore.: Never true Within the past 12 months, the food you bought just didn't last and you didn't have money to get more.: Never true Transportation Needs: No Transportation Needs (09/12/2024) Received from [facility] Transportation In the past 12 [...] Not At Risk (09/12/2024) Received from [facility] Humiliation, Afraid, Rape, and Kick [...] Stability: Low Risk (09/12/2024) Received from [facility] Housing Stability Vital Sign In [...] and negative PT pedal pulses NEURO: 5.07 Rowley Sybil monofilament test intact to digits and forefoot bilaterally 125Hz tuning fork diminished to 1st MPJ bilaterally ORTHO: Positive pain on palpation to toenails of the left 1,2,3,4,5 toes and right 1,2,3,4,5 toes ASSESSMENT 1. Diabetes mellitus due to underlying condition with diabetic polyneuropathy, 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 (HCC) 2. Pain due to [...] future Peyman Hensley DPM documented in this encounterLake Regional Health SystemTmsmwixugk48-92-2824 NoteUT Electrophysiology Consult Note [place] [facility] Reason for visit: s/p CRTD [...] today shows good function. Patient underwent the CHIEF ENGINEER'S HELPER placement on 07/10/2024 and subsequently underwent an [...] in A-fib. She was just discharged from [facility] for GI bleed. Eliquis and aspirin [...] fibrillation (CMS/HCC) CAD (coronary artery disease) Cancer ([facility]/HCC) CHF (congestive heart failure) ([facility]) Chronic kidney disease COPD (chronic obstructive pulmonary disease) ([facility]/HCC) Diabetes mellitus ([facility]) GI bleed Heart murmur Hyperlipidemia Hypertension [...] Other Tramadol Other Oxycodo (more content not included)...[facility] 11-21-2024 History of Present illness Narrative* [...] No Food Insecurity (09/12/2024) Received from [facility] Hunger Vital Sign Within the past 12 months, you worried that your food would run out before you got the money to buymore.: Never true Within the past 12 months, the food you bought just didn't last and you didn't have money to get more.: Never true Transportation Needs: No Transportation Needs (09/12/2024) Received from [facility] Transportation In the past 12 [...] Not At Risk (09/12/2024) Received from [facility] Humiliation, Afraid, Rape, and Kick questionnaire Fear of Current or Ex-Partner: No Emotionally Abused: No Physically Abused: No Sexually Abused: No Housing Stability: Low Risk (09/12/2024) Received from [facility] Housing Stability Vital Sign In [...] and negative PT pedal pulses NEURO: 5.07 Rowley Sybil monofilament test intact to digits and forefoot bilaterally 125Hz tuning fork diminished to 1st MPJ bilaterally ORTHO: Positive pain on palpation to toenails of the left 1,2,3,4,5 toes and right 1,2,3,4,5 toes ASSESSMENT 1. Diabetes mellitus due to underlying condition with diabetic polyneuropathy, 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 ([facility]) 2. Pain due to onychomycosis of toenails of both feet 3. Venous insufficiency 4. Neoplasm of uncertain behavior of skin 5. 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 Patient underwent the CHIEF ENGINEER'S HELPER placement on 07/10/2024 and subsequently underwent an [...] in A-fib. She was just discharged from [facility] for GI bleed. Eliquis and aspirin [...] disease) Cancer (CMS/HCC) CHF (congestive heart failure) (CMS/[facility]) Chronic kidney disease COPD (chronic obstructive pulmonary disease) ([facility]) Diabetes mellitus ([facility]) GI bleed Heart murmur Hyperlipidemia Hypertension PVD (peripheral vascular disease) PSH: Past Surgical History: Procedure Laterality Date CARDIAC CATHETERIZATION 12/15/2011, 08/23/2010, 12/30/2004, CORONARY STENT PLACEMENT HYSTERECTOMY 03/11/2005 VASCULAR SURGERY SH: Social Determinants of Health Tobacco Use: Medium Risk (10/08/2024) [facility] Patient History Smoking Tobacco Use: Former Smokeless [...] TIMES DAILY NEEDED luba (more content not included)...[facility] 10-09-2024 Telephone encounter Note* Telephone Encounter - Vernell Dey RN - 10/09/2024 9:01 AM EST Pt informed of AV message, once verified, using 2 patient identifiers. She will obtain and start B12, as recommended. Patient denies any questions, needs or concerns at this time. Appointment verified. Vernell Dey RN [facility]01-29-2025 Miscellaneous Notes* Telephone Encounter - Vernell Dey [...] B12 levels. Thank you. documented in this encounterKindred Hospital Lima01-29-2025 Telephone encounter Note * Telephone Encounter - Vaibhav Ashton MD - 10/09/2024 8:38 AM EST Please tell her to start OTC B12 supplements 1000mcg one tab daily for the low B12 levels. Thank you. [facility]01-28-2025 Instructions* Patient Instructions* Vaibhav Ashton MD - 10/08/2024 1:23 PM EST Labs today Arimidex sent to pharmacy F/u in 6 months documented in this encounterKindred Hospital Lima01-28-2025 History of Present illness Narrative* Vaibhav Ashton MD - 10/08/2024 1:00 PM EST Images from the original note were not included. PATIENT NAME: Harman [facility] NO.: [id number] ATTENDING PHYSICIAN: Vaibhav Ashton MD DATE OF SERVICE: 10/08/24 Some of the elements of this note have been copied from Winnie MILLAN previous progress note dated 06/20/23. All the information has been reviewed carefully. CC: Follow up Diagnosis: T1b, N0, M0- R breast, Tumor 9 mm, Grade 2, Margins negative, Negative LVI, 2 SNL negative, ER and SC >95% positive, Her2 IHC 1+ Treatment History: [...] in Jun 2024 - Mammogram done at [facility] - On eliquis for Afib PAST MEDICAL [...] follow up. R Breast T1b,N0,M0- ER and SC >95% positive and Her-2 IHC 1+ tumor [...] months. 3.Vulvar high grade dysplasia- Seen by [facility] Super[facility] Onc in the past. Not following currently. 4 CHF- S/p AICD placement in Jun 2024. 5. Afib on eliquis 6. CKD 7. F/u with PCP, cardiology and other consultants. F/u in 6 months. Total time spent 30 min. Vaibhav Ashton MD [facility] Hematology/Oncology CC: MD Mateus Spicer MD documented in this encounterKindred Hospital Lima01-28-2025 NoteHNO ID: [id number] Author: VAIBHAV ASHTON MD Service: ? Author Type: Physician Type: Progress Notes Filed: 10/08/2024 14:03 Note Text: PATIENT NAME: Harman [facility] NO.: [id number] ATTENDING PHYSICIAN: Vaibhav Ashton MD DATE OF SERVICE: 10/08/24 Some of the elements of this note have been copied from Winnie MILLAN previous progress note dated 06/20/23. All the information has been reviewed carefully. CC: Follow up Diagnosis: T1b, N0, M0- R breast, Tumor 9 mm, Grade 2, Margins negative, Negative LVI, 2 SNL negative, ER and SC >95% positive, Her2 IHC 1+ Treatment History: [...] in Jun 2024 - Mammogram done at [facility] - On eliquis for Afib PAST MEDICAL [...] Total (g/dL) Date Value (more content not included)...[facility]01-24-2025 Telephone encounter Note* Telephone Encounter - Carlos Brooks - 10/04/2024 2:27 PM EST Patient has been scheduled w/ Dr. Guzman on Sunday 10/08. Patient notified. Thanks! Carlos Brooks [facility]01-24-2025 Miscellaneous Notes* Telephone Encounter - Carlos Brooks [...] they would like to transfer care to [place] * Telephone Encounter - Evita Deshpande RN - 10/04/2024 12:46 PM EST Per 06/20/23 [facility] oncology: pt is to return in about 4 months (around 10/21/2023) for MD miquel visit. Pt has been lost to follow up NEEDS visit before medication can be renewed: OV Dr Stone in [place]- if too far for pt to drive can forward to [facility] team for transition of care with new provider Labs day prior (CBC/diff, CMP) [phone] (home) * Telephone Encounter - Maylin Sandoval [...] updated that he practices out of the [facility] location. I made heraware that I will send a message and she is to expect a call. Patient and daughter agree with plan and appreciate the time. Maylin Sandoval RN documented in this encounterKindred Hospital Lima01-24-2025 Telephone encounter Note * Telephone Encounter - [...] they would like to transfer care to [place] [facility]01-24-2025 Telephone encounter Note* Telephone Encounter - Evita Deshpande RN - 10/04/2024 12:46 PM EST Per 06/20/23 [facility] oncology: pt is to return in about 4 months (around 10/21/2023) for MD miquel visit. Pt has been lost to follow up NEEDS visit before medication can be renewed: OV Dr Stone in [place]- if too far for pt to drive can forward to [place] team for transition of care with new provider Labs day prior (CBC/diff, CMP) [phone] (home) [facility]01-24-2025 Telephone encounter Note* Telephone Encounter - Maylin [...] updated that he practices out of the [facility] location. I made heraware that I will send a message and she is to expect a call. Patient and daughter agree with plan and appreciate the time. Maylin Sandoval RN [facility]01-14-2025 NoteUT Electrophysiology Consult Note [place] [facility] Reason for visit: s/p CRTD and [...] today shows good function. Patient underwent the CHIEF ENGINEER'S HELPER placement on 07/10/2024 and subsequently underwent an [...] in A-fib. She was just discharged from [facility] for GI bleed. Eliquis and aspirin [...] kidney disease COPD (chronic obstructive pulmonary disease) ([facility]) Diabetes mellitus ([facility]) GI bleed Heart murmur Hyperlipidemia Hypertension PVD (peripheral vascular disease) ([facility]) PSH: Past Surgical History: Procedure Laterality [...] apixaban (Eliquis) 2.5 mg (more content not included)...[facility]01-02-2025 NoteUT Electrophysiology Consult Note [place] [facility] Reason for visit: s/p CRTD [...] today shows good function. Patient underwent the CHIEF ENGINEER'S HELPER placement on 07/10/2024 and subsequently underwent an [...] in A-fib. She was just discharged from [facility] for GI bleed. Eliquis and aspirin [...] Diagnosis Date Abnormal ECG Arrhythmia Atrial fibrillation ([facility]/HCC) CAD (coronary artery disease) Cancer ([facility]/HCC) CHF (congestive heart failure) ([facility]/HCC) Chronic kidney disease COPD (chronic obstructive pulmonary disease) ([facility]/HCC) Diabetes mellitus ([facility]/HCC) GI bleed Heart murmur Hyperlipidemia Hypertension PVD (peripheral vascular disease) [facility] HOSPITAL/[facility]) PSH: Past Surgical History: Procedure Laterality [...] 1 tablet (2.5 mg) (more content not included)...[facility]12-23-2024 NoteUT Electrophysiology Consult Note [place] [facility] Reason for visit: s/p CRTD [...] today shows good function. Patient underwent the CHIEF ENGINEER'S HELPER placement on 07/10/2024 and subsequently underwent an [...] in A-fib. She was just discharged from [facility] for GI bleed. Eliquis and aspirin [...] murmur Hyperlipidemia Hypertension PVD (peripheral vascular disease) ([facility]/HCC) PSH: Past Surgical History: Procedure Laterality [...] on file Intimate Partner Violence: Unknown (11/02/2023) [place] Safety & Environment Fear of Current or [...] daily. fish oil concen (more content not included)...[facility]12-19-2024 History of Present illness Narrative* Peyman [...] 4 months after hitting object. Currently sees [facility] wound center every 3 weeks with [...] Partner Violence: Unknown (11/02/2023) Received from [facility] [place] Safety & Environment Fear [...] and negative PT pedal pulses NEURO: 5.07 Rowley Sybil monofilament test intact to digits and forefoot bilaterally 125Hz tuning fork diminished to 1st MPJ bilaterally ORTHO: Positive pain on palpation to nails 1 through 10 Positive pain palpation left anterior braun ASSESSMENT 1. 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 Diabetes mellitus due to underlying condition with diabetic polyneuropathy, 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 correction insulin use ([facility]) 3. Pain due to onychomycosis of [...] DSD applied . Patient currently has the [facility] wound center applying Medihoney every other day. Did discuss possibility if no improvement to contact Podiatry for advanced wound care treatments or if any signs of infection Peyman Hensley DPM documented in this encounterLake Regional Health [id number] NoteUT Electrophysiology Consult Note [place] [facility] Reason for visit: s/p CRTD [...] today shows good function. Patient underwent the CHIEF ENGINEER'S HELPER placement on 07/10/2024 and subsequently underwent an [...] in A-fib. She was just discharged from [facility] for GI bleed. Eliquis and aspirin [...] fibrillation (CMS/HCC) CAD (coronary artery disease) Cancer ([facility]/HCC) CHF (congestive heart failure) ([facility]/HCC) Chronic kidney disease COPD (chronic obstructive pulmonary disease) ([facility]/HCC) Diabetes mellitus ([facility]/HCC) GI bleed Heart murmur Hyperlipidemia Hypertension PVD (peripheral vascular disease) ([facility]/HCC) PSH: Past Surgical History: Procedure Laterality Date CARDIAC CATHETERIZATION 12/15/2011, 08/23/2010, 12/30/2004, CORONARY STENT PLACEMENT HYSTERECTOMY 03/11/2005 VASCULAR SURGERY SH: Social Determinants of Health Tobacco Use: Medium Risk (06/20/2024) [facility] Patient History Smoking Tobacco Use: Former Smokeless Tobacco Use: Never Passive Exposure: Not on file Alcohol Use: Not on file Financial Resource Strain: Not on file Food Insecurity: Not on file Transportation Needs: Not on file Physical Activity: Not on file Stress: Not on file Social Connections: Not on file Intimate Partner Violence: Unknown (11/02/2023) [place] Safety & Environment Fear of Current or Ex-Partner: Not on file Emotionally Abused: Not on file Physically Abused: Not on file Sexually Abused: Not on file Physically or Sexually Abused: Not on file Depression: Not at risk (02/14/2023) Received from [facility] PHQ-2 PHQ-2 score: 0 Housing Stability: [...] mouth two times daily. fish oil concentrate ([place]-3) 120-180 mg capsule Take 1,000 mg by [...] >130 insulin glargine (L (more content not included)...[facility]12-02-2024 NoteAV NODE ABLATION PROCEDURE REPORT DATE OF PROCEDURE: 08/12/2024 PERFORMING PHYSICIAN: Dr. Brian Kern DIGITAL OPERATIONS ANALYST: SAVAGE CONSENT: Patient NAME OF THE [...] in A-fib. She was just discharged from [facility] for GI bleed. Eliquis and aspirin have been put on hold. She was originally scheduled for DCCV today with Dr. Keyes. Jardiance was stopped, and metoprolol was reduced to 100mg daily.She underwent CHIEF ENGINEER'S HELPER on 07/10/24 and now presents for AVN [...] stored. Venous access was obtained and a BIOeCONigo sheath was placed in the right femoral [...] 3. Continue anticoagulation. Brian Kern MD Cardiac Electrophysiology.[facility]12-02-2024 Note Patient: Harman Mcleod Procedure Information Date/Time: 08/12/24 1230 Procedure: AV node ablation - PC APPROVED Location: [facility] NUTRITIONIST 1 EP / [facility] (Cath) Providers: Brian Kern MD Clinical information reviewed: Allergies Meds OB Status Physical Exam Airway Mallampati: II TM distance: >3 FB Neck ROM: full Cardiovascular Dental Pulmonary Abdominal Anesthesia Plan ASA 2 CSE Additional [facility] History of Present illness Narrative* Peyman Nair [...] 2 months after hitting object. Currently sees [facility] wound center every 3 weeks with [...] Partner Violence: Unknown (11/02/2023) Received from [facility] [place] Safety [place] Fear [...] and negative PT pedal pulses NEURO: 5.07 Rowley Sybil monofilament test intact to digits and forefoot bilaterally 125Hz tuning fork diminished to 1st MPJ bilaterally ORTHO: Positive pain on palpation to nails 1 through 10 Positive pain palpation left anterior braun ASSESSMENT 1. Venous insufficiency 2. Hav (hallux abducto valgus), left 3. Acquired deformity of left toe 4. 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 ([facility]) 5. Diabetes mellitus due to underlying condition with diabetic polyneuropathy, 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 ([facility]) 6. Pain due to onychomycosis of [...] DSD applied . Patient currently has the [facility] wound center applying Medihoney every other day. Did discuss possibility if no improvement to contact Podiatry for advanced wound care treatments or if any signs of infection Peyman Hensley DPM documented in this encounterLake Regional Health [id number] Progress note Author Janell Mathews [facility] April 10, 2024 10:30amNote Date/TimeJuly 2023 10:30[place] [address] Wound Center Provider Note Signed Patient: Harman Mcleod MR#: [id number] : 1940 Acct:[id number] Age/Sex: 83 / F Copies to: MD Janell Oliver, ELECTRONIC MAINTENANCE SUPERVISOR~ HPI Date of Visit Date of Visit: Date of Service: 04/10/2024 Time of Service: : Narrative HPI: 12/11/23 Harman is an 83 year old presenting to [facility] wound care for an initial [...] the entire visit, she has [facility], the left leg will be [...] today for good measure and [facility] can remove next week and start stockings or wraps if something isopen on the legs, family and friend present for the visit, does not need to return to the office unless new ulcers do develop, spoke about her getting established with a enterprise application architect and so hopefully she will follow through [...] to the ED per the [facility] nurse but she had refused this [...] bilateral lower leg ulcers Mode of Arrival/ Child Development Specialist: Friend Assistive Device Used Today: Walker Lives with:: Significant Other Appetite Description: Within Normal Limits Who helps w/ dressing change?: Home Health Why Do You Need Help?: Can't Reach Ulcer, Limited mobility, Unsafe leave home byself and Taxing effort to leave home Smoking Status: Former smoker [facility] Medical History (Updated 04/10/24 @ 10:30 by [...] List clean-up per request of Phys. [facility] of [facility] artery stent Problem [facility] (Updated 06/01/23 @ 08:45 [...] DAILY 04/25/19 [History Confirmed 12/11/23] omega-3s 300 as-myg-ifz-other brhqm2z-xwet oil 1,000 mg capsule ([place]-3 Fish Oil) 2 cap PO BID 04/25/19 [...] Stasis Ulcer Thickness: Skin Breakdown Bed Appearance: Crump Percent of Wound Bed Granulated/Red: 100 Percent [...] <Electronically signed by FERNY Mathews> 04/10/24 1030 [facility] Work Phone: 1(370) 769-444607-16-2024 Progress note Author Janell Mathews [facility] March 26, 2024 9:51amNote Date/TimeJuly 2023 9:51[place] [address] Wound Center Provider Note Signed Patient: Harman Mcleod MR#: [id number] : 1940 Acct:[id number] Age/Sex: 83 / F Copies to: MD Janell Oliver APRN~ HPI Date of Visit Date of Visit: Date of Service: 03/26/2024 Time of Service: 09:47 Narrative HPI: 12/11/23 Harman is an 83 year old presenting to [facility] wound care for an initial [...] the entire visit, she has [facility], the left leg will be [...] today for good measure and [facility] can remove next week and start stockings or wraps if something isopen on the legs, family and friend present for the visit, does not need to return to the office unless new ulcers do develop, spoke about her getting established with a enterprise application architect and so hopefully she will follow through [...] to the ED per the [facility] nurse but she had refused this [...] bilateral lower leg ulcers Mode of Arrival/ Child Development Specialist: Friend Assistive Device Used Today: Walker Lives with:: Significant Other Appetite Description: Within Normal Limits Who helps w/ dressing change?: Home Health Why Do You Need Help?: Can't Reach Ulcer, Limited mobility, Unsafe leave home byself and Taxing effort to leave home Smoking Status: Former smoker [facility] Medical History (Updated 02/13/24 @ 10:54 by [...] DAILY 04/25/19 [History Confirmed 12/11/23] omega-3s 300 ml-sla-bpj-other efbld1j-fooj oil 1,000 mg capsule ([place]-3 Fish Oil) 2 cap PO BID 04/25/19 [...] Breakdown Bed Appearance: Epithelial Tissue or Bridge, Crump and Yellow Percent of Wound Bed Granulated/Red: [...] <Electronically signed by FERNY Mathews> 03/26/24 0951 [facility] Work Phone: 1(847) 923-840606-04-2024 Progress note Author Janell Mathews [facility] February 13, 2024 10:55amNote Date/TimeJune 2023 10:55[place] [address] Wound Center Provider Note Signed Patient: Harman Mcleod MR#: [id number] : 1940 Acct:[id number] Age/Sex: 83 / F Copies to: MD Janell Oliver, ELECTRONIC MAINTENANCE SUPERVISOR~ HPI Date of Visit Date of Visit: Date of Service: 02/13/2024 Time of Service: 10:47 Narrative HPI: 12/11/23 Harman is an 83 year old presenting to [facility] wound care for an initial [...] present for the entire visit, she has [facility], the left leg will be treated [...] today for good measure and [facility] can remove next week and start stockings or wraps if something isopen on the legs, family and friend present for the visit, does not need to return to the office unless new ulcers do develop, spoke about her getting established with a enterprise application architect and so hopefully she will follow through [...] to the ED per the [facility] nurse but she had refused this and wanted to come to this appt instead Subjective Pain Left Leg: Pain Description: Intermittent Pain Intensity: 0 Wound/Ulcer History When did wound start?: August 2023 bilateral lower leg ulcers Mode of Arrival/ Child Development Specialist: Friend Assistive Device Used Today: Walker Lives with:: Significant Other Appetite Description: Within Normal Limits Who helps w/ dressing change?: Home Health Why Do You Need Help?: Can't Reach Ulcer, Limited mobility, Unsafe leave home byself and Taxing effort to leave home Smoking Status: Former smoker [facility] Medical History (Updated 02/13/24 @ 10:54 by [...] List clean-up per request of Phys. [facility] Family History (Updated 06/01/23 [...] DAILY 04/25/19 [History Confirmed 12/11/23] omega-3s 300 tn-udh-cbz-other ljhxh4l-oaaa oil 1,000 mg capsule ([place]-3 Fish Oil) 2 cap PO BID 04/25/19 [...] Posterior Thigh: Bed Appearance: Beefy Red and Crump Percent of Wound Bed Granulated/Red: 0 Percent [...] <Electronically signed by FERNY Mathews> 02/13/24 1055 [facility] Work Phone: 1(180) 564-449405-21-2024 Progress note Author Janell Mathews [facility] January 30, 2024 10:44amNote Date/TimeMay 2023 10:44[place] [address] Wound Center Provider Note Signed Patient: Harman Mcleod MR#: [id number] : 1940 Acct:[id number] Age/Sex: 83 / F Copies to: MD Janell Oliver, FERNY~ HPI Date of Visit Date of Visit: Date of Service: 01/30/2024 Time of Service: 10:37 Narrative HPI: 12/11/23 Harman is an 83 year old presenting to [facility] care for an initial [...] present for the entire visit, she has [facility], the left leg will be treated [...] today for good measure and [facility] can remove next week and start stockings or wraps if something isopen on the legs, family and friend present for the visit, does not need to return to the office unless new ulcers do develop, spoke about her getting established with a enterprise application architect and so hopefully she will follow through [...] bilateral lower leg ulcers Mode of Arrival/ Child Development Specialist: Friend Assistive Device Used Today: Walker Lives with:: Significant Other Appetite Description: Within Normal Limits Who helps w/ dressing change?: Home Health Why Do You Need Help?: Can't Reach Ulcer, Limited mobility, Unsafe leave home byself and Taxing effort to leave home Smoking Status: Former smoker [facility] Medical History (Updated 01/30/24 @ 10:43 by [...] DAILY 04/25/19 [History Confirmed 12/11/23] omega-3s 300 gt-ezi-kbw-other qttwb2q-jzvn oil 1,000 mg capsule ([place]-3 Fish Oil) 2 cap PO BID 04/25/19 [...] Posterior Thigh: Bed Appearance: Beefy Red and Crump Percent of Wound Bed Granulated/Red: 100 Percent [...] <Electronically signed by FERNY Mathews> 01/30/24 1044 [facility] Work Phone: 1(636) 542-112504-18-2024 Progress note Author Janell Mathews [facility] December 28, 2023 11:22amNote Date/TimeApril 2023 11:22[place] [address] Wound Center Provider Note Signed Patient: Harman Mcleod MR#: [id number] : 1940 Acct:[id number] Age/Sex: 83 / F Copies to: MD Janell Oliver, FERNY~ HPI Date of Visit Date of Visit: Date of Service: 12/28/2023 Time of Service: 11:19 Narrative HPI: 12/11/23 Harman is an 83 year old presenting to [facility] wound care for an initial [...] present for the entire visit, she has [facility], the left leg will be treated [...] spoke about her getting established with a enterprise application architect and so hopefully she will follow through on that, spoke about compression socks too forlong term use Subjective Pain Left Leg: Pain Intensity: 0 Wound/Ulcer History When did wound start?: August 2023 bilateral lower leg ulcers Mode of Arrival/ Child Development Specialist: Friend Assistive Device Used Today: Walker Lives with:: Significant Other Appetite Description: Within Normal Limits Who helps w/ dressing change?: Home Health Why Do You Need Help?: Can't Reach Ulcer, Limited mobility, Unsafe leave home byself and Taxing effort to leave home Smoking Status: Former smoker [facility] Medical History (Updated 12/11/23 @ 09:30 by [...] List clean-up per request of Phys. [facility] History History of bladder suspension procedure Problem List clean-up per request of Phys. EHR Cmte H/O: hysterectomy Problem List clean-up per request of Phys. EHR Cmte History of appendectomy Problem List clean-up per request of Phys. [facility] History of heart artery stent Problem List clean-up per request of Phys. [facility] Family History (Updated 06/01/23 [...] DAILY 04/25/19 [History Confirmed 12/11/23] omega-3s 300 fs-rcn-grz-other bmwbq1b-zdyr oil 1,000 mg capsule ([place]-3 Fish Oil) 2 cap PO BID 04/25/19 [...] <Electronically signed by FERNY Mathews> 12/28/23 1122 [facility] Work Phone: 1(403) 196-531004-01-2024 Progress note Author Janell Mathews [facility] December 11, 2023 9:35amNote Date/TimeApr2023 9:35[place] [address] Wound Center Provider Note Signed Patient: Harman Mcleod MR#: [id number] : 1940 Acct:[id number] Age/Sex: 83 / F Copies to: MD Janell Oliver APRN~ HPI Date of Visit Date of Visit: Date of Service: 12/11/2023 Time of Service: 09:27 Narrative HPI: 12/11/23 Harman is an 83 year old presenting to [facility] wound care for an initial [...] the entire visit, she has [facility], the left leg will be [...] bilateral lower leg ulcers Mode of Arrival/ Child Development Specialist: Friend Assistive Device Used Today: Walker Lives with:: Significant Other Appetite Description: Within Normal Limits Who helps w/ dressing change?: Home Health Why Do You Need Help?: Can't Reach Ulcer, Limited mobility, Unsafe leave home byself and Taxing effort to leave home Smoking Status: Former smoker [facility] Medical History (Updated 12/11/23 @ 09:30 by Janell Mathews APRN) Leg ulcer, left Cataract Problem List clean-up per request of Phys. 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 [facility] Vaginal lesion Problem List clean-up per request of Phys. EHR Cmte PAD (peripheral artery disease) Problem List clean-up per request of Phys. EHR Cmte CAD (coronary artery disease) Problem List clean-up per request of Phys. EHR Cmte Dyslipidemia Problem List clean-up per request of Phys. EHR Cmte Hyperthyroidism Problem List clean-up per request of Phys. [facility] Diabetes mellitus Problem List clean-up per request of Phys. EHR Cmte Hypertension Problem List clean-up per request of Phys. [facility] Surgical History History of bladder suspension procedure Problem List clean-up per request of Phys. [facility] H/O: hysterectomy Problem List clean-up per request of Phys. [facility] History of appendectomy Problem List clean-up per request of Phys. [facility] History of heart artery stent Problem List clean-up per request of Phys. [facility] Family History (Updated 06/01/23 [...] DAILY 04/25/19 [History Confirmed 12/11/23] omega-3s 300 kq-llc-nkw-other swugl9p-ibye oil 1,000 mg capsule ([place]-3 Fish Oil) 2 cap PO BID 04/25/19 [...] Breakdown Bed Appearance: Epithelial Tissue or Bridge, Crump and Yellow Percent of Wound Bed Granulated/Red: [...] <Electronically signed by FERNY Mathews> 12/11/23 0935 [facility] Work Phone: 1(987) 267-575110-10-2023 Nurse Note* Lina Lopes MA - 06/20/2023 2:49 PM EDT Patient would like to know if she needs a mammogram? She was told in Oct that she would need one in6 months. Lina Lopes MA documented in this encounterKindred Hospital [facility]10-10-2023 History of Present illness Narrative* Winnie Farris PA-C - 06/20/2023 2:30 PM EDT Images from the original note were not included. PATIENT NAME: Harman Mcleod CLINIC NO.: [id number] ATTENDING PHYSICIAN: Wallace Stone MD DATE OF [...] Negative LVI, 2 SNL negative, ER and SC >95% positive, Her2 IHC 1+ Treatment History: [...] follow up. R Breast T1b,N0,M0- ER and SC >95% positive and Her-2 IHC 1+ tumor post Lumpectomy and SNL 10/2022. Reviewed path and she elected not to proceed with XRT and started Arimidex in 11/2022. Continues to tolerate well. Mammogram in 07/2023 (order placed). See us in 4 months. Plan is for 5 years of AI therapy Osteoporosis- On Prolia started 08/[address] Perry Vulvar high grade dysplasia- Follows [facility] Super[facility] Onc at [facility] R Leg swelling and pain and h/o PVD- Follows vascular HTN--managed by PCP Winnie Farris PA-C CC: MD Mateus Spicer MD documented in this encounterKindred Hospital Lima09-21-2023 Evaluation note* Encounter Date Diagnosis Assessment Notes [...] In addition I took her to the Fiber Optic Technician and performed a right iliac venogram which [...] a second opinion at the [facility] vascular medicine program. She declined. I will see her as needed in the future. [employer] Other 06-29-2023 Evaluation note* Encounter Date Diagnosis [...] to call us with any concerns whatsoever. [employer] Other 06-06-2023 History of Present illness Narrative* Wallace Stone MD - 02/14/2023 10:37 AM EDT Images from the original note were not included. PATIENT NAME: Harman Mcleod CLINIC NO.: [id number] ATTENDING PHYSICIAN: Wallace Stone MD DATE OF [...] Negative LVI, 2 SNL negative, ER and SC >95% positive, Her2 IHC 1+ Treatment History: [...] follow up. R Breast T1b,N0,M0- ER and SC >95% positive and Her-2 IHC 1+ tumor post Lumpectomy and SNL 10/2022. Reviewed path and she elected not to proceed with XRT and started Arimidex in 11/2022 and toleraing well. Plan for 5 years of therapy. Osteoporosis- On Prolia started 08/[address] Perry Vulvar high grade dysplasia- Follows [facility] Supervisor Onc at [facility] R Leg swelling and pain and h/o PVD- Follows vascular HTN Rash- refer to Derm Thank you for the kind referral. If there are any questions and or concerns please do not hesitate to contact me at [phone]. Wallace Stone MD Hematology/Medical Oncology [facility] I spent a total of 30 minutes on the date of the service which included preparing to see the patient, dpqg-vd-yhhx patient care, completing clinical documentation, obtaining and/or reviewing separately obtained history, performing a medically appropriate examination, counseling and educating the pat ient/family/caregiver, and ordering medications, tests, or procedures. CC: MD Mateus Spicer MD documented in this encounterKindred Hospital Lima03-29-2023 Evaluation note* Encounter Date Diagnosis Assessment Notes [...] her primary care provideras well as her six sigma black trainer. We will continue to follow her along and see her again in a couple of months and see how she is doing with her pumps, conservative efforts, and weight management. She knows to call us in the meantime with any other additional concerns or complaints. [employer] Other 03-21-2023 [facility] Evaluation note* Encounter Date Diagnosis Assessment Notes [...] specified soft tissue disorders (ICD-10 - M79.89) [employer] Other 03-08-2023 Miscellaneous Notes* Telephone Encounter - Adriana Pereira [facility] - 11/16/2022 8:40 AM EST Called Vascular office spoke with Jessy. They have received this referral and have patient scheduledwith Dr Gonzales on 11/23 @ 10:00. Adriana Burnham * Telephone Encounter - Kira Ko [facility] - 11/10/2022 9:38 AM EST Records faxed. * Telephone Encounter - Adriana Pereira [facility] - 11/10/2022 8:46 AM EST Janeth: Information ready for you. Adriana Burnham * Telephone Encounter - Carlos Brooks - 11/09/2022 2:44 PM EST Vascular Consult [facility] [place] Previous patient of Dr. Mendez 3 years or more. Janeth/Dudley: Can you please refer patient and follow up? Thanks! Carlos Brooks documented in this encounter[facility] History of Present illness Narrative* Wallace Stone MD - 11/09/2022 2:00 PM EST Images from the original note were not included. PATIENT NAME: Harman Mcleod CLINIC NO.: [id number] ATTENDING PHYSICIAN: Wallace Stone MD DATE OF SERVICE: November 09, [address] Banks referring provider defined for this encounter. here is an update on a follow up visit on female Harman Mcleod at the clinic 11/09/2022 Diagnosis: T1b, N0, M0- R breast, Tumor 9 mm, Grade 2, Margins negative, Negative LVI, 2 SNL negative, ER and SC >95% positive, Her2 IHC 1+ Treatment History: [...] follow up. R Breast T1b,N0,M0- ER and SC >95% positive and Her-2 IHC 1+ tumor post Lumpectomy and SNL 10/2022. Reviewed path and she may skip radiation and also discussed hormonal; therapy with an AI and she will start Arimidex. Discussed adverse events and she wishes to proceed. Osteoporosis- On Prolia started 08/[address] Perry Vulvar high grade dysplasia- Follows [facility] at [place] and next appointment 11/24/2022 CRI R Leg swelling and pain and h/o PVD- refer to vascular HTN Thank you for the kind referral. If there are any questions and or concerns please do not hesitate to contact me at [phone]. Wallace Stone MD Hematology/Medical Oncology [facility] spent a total of 30 minutes on the date of the service which included preparing to see the patient, [id number] patient care, completing clinical documentation, obtaining and/or reviewing separately obtained history, performing a medically appropriate examination, counseling and educating the pat ient/family/caregiver, and ordering medications, tests, or procedures. CC: MD Mateus Spicer MD documented in this encounterKindred Hospital Lima02-08-2023 NoteOPERATIVE NOTE OPERATION DATE: 10/19/2022 PREOPERATIVE DIAGNOSIS: Right breast cancer. POSTOPERATIVE DIAGNOSIS: Right breast cancer. PROCEDURE: Needle localized right breast lumpectomy with sentinel lymph node biopsy. SURGEON: Iliana Gagnon M.D. ANESTHESIA: General laryngeal mask airway. FORMING DEPARTMENT SUPERVISOR: SADI Hammer ESTIMATED BLOOD LOSS: Less than [...] good condition. CC: Mateus Perry M.D.[facility]01-31-2023 NoteEXAMINATION: XR CHEST 2 V [...] by: ALFONSO GEORGE Date: 2022-10-11 12:11[facility]01-12-2023 History of Present illness Narrative* Marcin Nayak MD - 09/22/2022 11:38 PM EST Images from the original note were not included. Radiation Oncology - New Patient/Consult Note PATIENT NAME: Harman Mcleod PATIENT Signed: Marcin Nayak MD I spent a total of 60 minutes on the date of the service which included preparing to see the patient, [id number]-[id number] patient care, and counseling and educating the patient/family/caregiver. This document has been created with the use of voice recognition technology. It may contain inaccuracies, misspellings, inaccurate syntax or inappropriate word context that are a result of the inadequacies/shortcomings of said technology/software. documented in this encounterKindred Hospital Lima01-12-2023 History of Present illness Narrative* Wallace Stone MD - 09/22/2022 5:10 PM EST Images from the original note were not included. PATIENT NAME: Harman Mcleod CLINIC NO.: [id number] ATTENDING PHYSICIAN: Wallace Stone MD DATE OF [...] provisional grade 1 through 2, ER and SC greater than 95% positive, HER2/holden negative with an IHC score of 1+ and FISH negative at [facility]. This patient was subsequently referred to Dr. Iliana Gagnon for surgical consultation. Patient denies any previous history of abnormal mammograms and or breast biopsy. She has had a recent bone density in [place] and was diagnosed with osteoporosis and started on Prolia as well. Patient has a sister who was diagnosed with breast cancer at the age of 82 and her daughter diagnosed with breast cancer at the age of 37. She quit smoking approximately 4 years ago. 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 She [...] mouth daily at bedtime. Cut in half Ycmkh-6-WXI-EPA-Fish Oil 1,000 mg (120 mg-180 mg) cap [...] ductal carcinoma, provisional grade 1-2, ER and SC greater than 95% positive, HER2/holden negative with [...] Chronic renal insufficiency Hypertension Hyperlipidemia Dear Dr. lIiana Gagnon, thank you for allowing me to participate in Mrs. Harman Mcleod care, ifthere are any questions or concerns please do not hesitate to contact me at the number below. Wallace Stone M.D. Hematology/Medical Oncology [facility] [phone] CC: MD Mateus Spicer MD I spent a total of 60 minutes on the date of the service which included preparing to see the patient, arzz-lb-walf patient care, completing clinical documentation, obtaining and/or reviewing separately obtained history, performing a medically appropriate examination, counseling and educating the pat ient/family/caregiver, ordering medications, tests, or procedures, and communicating with other HCPs (not separately reported). documented in this encounterKindred Hospital Lima01-12-2023 Miscellaneous Notes* Telephone Encounter - Heavenly Wilkerson [...] involved. Heavenly Wilkerson RN documented in this encounterKindred Hospital Lima12-30-2022 NoteChief Complaint consultation for right breast cancer [...] biopsy that r evealed invasive ductal carcinoma, ER/SC +; Her2 holden negative; patient denies change [...] gms IV prior to OR SCDs Or[place] [facility] [place] Ambulatory Referral [facility] External Ambulatory Referral 2. 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 Garza. documented in this encounterB[facility] [employer] Phone: 1(929) 872-582510-18-2022 Hospital Discharge instructions* Discharge Instructions* Brody Ken [...] call your doctor documented in this encounterBON [employer] Phone: 1(667) 572-985504-04-2022 History of Present illness Narrative* Brody Ken [...] Plunkett MD - 12/13/2021 2:12 PM EDT [facility] Supervisor Oncology Attending Note Patient seen and evaluated [...] chart for or 12/13/21 documented in this encounterAgorafy Phone: [phone] 150-352904-04-2022 Evaluation note* Diagnosis Vaginectomy w/ Cysto 12/13/21- Primary Other postprocedural status documented in this encounter [employer] Phone: [phone]) 372-485104-04-2022 Hospital Discharge instructions* Instructions* Brody Ken RN [...] of: May 19, 2021 Content Version: 13.2 [employer]. Care instructions adapted under license by [employer]. If you have questions about a medical condition or this instruction, always ask your healthcare professional. [employer] disclaims any warranty or liability for your [...] documented in this [facility] [employer] Work Phone: 1(456) 209-850103-28-2022 History of Present illness Narrative* YANA Wallis [...] Disease: Yes, stents x 3, Dr. Keyes ([facility]) Hypertension: yes Active smoker: Quit 2017, [...] documented in this [facility] Phone: 1(935) 271-496103-25-2022 Hospital Discharge instructions* Instructions* Yoanna Diaz PA [...] drive you home after your procedure. Your power truck driver must be 18 years of [...] questions, call the Pre-Admission Testing Unit at [phone]. Day of Surgery/Procedure As a patient at [facility] you can expect quality medical and nursing care that is centered on your individual needs. Our goal is to make your surgical experience as comfortableas possible . Directions to the Surgery Center [facility] is located at [address] [place] [address]. Please pull into the Emergency parking lot and stop at the [employer] richards. We offer free installation helper service for all our surgery patients, if you choose not to have installation helper parking we have additional parking across the street.You will enter the facility following the [facility] sign. Please stop at the human resources receptionist desk where you will be checked in by the staff. If you have any questions please call [phone]. Transportation after your procedure. You will need a friend or family member to drive you home after your procedure. Your power truck driver must be18 years of age [...] You may shave your face or neck. [place] your teeth but do not swallow water. [...] or the day of surgery, please call [phone], or [phone] documented in this encounterAgorafy Phone: [phone] 415-438710-05-2021 History of Present illness Narrative* Parvin Rogel RN - 06/15/2021 10:[address] Kamla gan, pt cleared for phase II * Alla Dickerson DO - 06/15/2021 9:42 AM EDT OB Resident Progress Note Patient may be discharged home once she has met criteria in the PACU. Please perfect serve or page AGING DEPARTMENT SUPERVISOR resident listed below with any questions, concerns, or if patient has not met PACU discharge criteria in 2-3 hours. . Please page first. Alla Dickerson DO AGING DEPARTMENT SUPERVISOR Resident PGY3 Pager: [phone] [facility] 06/15/2021, 9:42 AM documented in this [employer] Phone: [phone] 322-697710-04-2021 Hospital Discharge instructions* Instructions* Alla Dickerson DO [...] cleared by your physician documented in this [facility] Work Phone: 1([phone]) 525-176309-01-2021 Hospital Discharge instructions* Instructions* Na Cabezas APRN - STEWARD/STEWARDESS - 05/12/2021 Pre-operative Instructions Please arrive at [...] public transportation ALONE is not acceptable. -Your power truck driver must be 18 years of [...] Day of Surgery/Procedure As a patient at [facility] you can expect quality medical and nursing care that is centered on your individual needs. Our goal is to make your surgical experience as comfortableas possible . Directions to the Surgery Center [facility] is located at [address] [place] [address]. Please pull into the Emergency/Surgery Center parking lot and stop at the [employer] richards. We offer free installation helper service for all our surgery patients, if you choose not to have installation helper parking we have additional parking across the [...] pharmacy bottles in a zip lock bag. [place] your teeth but do not swallow water. [...] DAY OF your surgery, you may call [phone] documented in this [facility] hospital[facility] Phone: 1([phone]) [phone] History of Present illness Narrative* Mandy Baker RN - 05/12/2021 1:30 PM EDT Medical clearance obtained for OR on 05/18/2021. * Na Cabezas APRN - STEWARD/STEWARDESS - 05/12/2021 1:30 PM EDT Anesthesia Focused [...] 5-8 Intermediate risk 3-4 Low risk 0-2 SANRDO No If yes, machine? DM1 No DM2 Yes Coronary Artery Disease Yes HTN Yes Defib/AICD/Pacemaker No Renal Failure No If yes, on dialysis Active smoker? No Drinks alcohol? No Illicit drugs? No Dentition? benign Past Medical History: Diagnosis Date Arthritis Asthma Bronchitis CAD (coronary artery disease) CHF (congestive heart failure) ([facility]) COPD (chronic obstructive pulmonary disease) ([facility]) Diabetes mellitus (HCC) Gastritis GERD (gastroesophageal reflux disease) History of stent insertion of renal artery Hx of blood clots Hyperlipidemia Hypertension IBS (irritable bowel syndrome) Pedal edema Pneumonia PVD (peripheral vascular disease) ([facility]) Thyroid disease Under care of team 05/12/2021 dr Hayden velez [place]-last visit apr 2021 Under care of team 05/12[facility] Varicose vein of leg [...] outside provider), cardiac stentx 3. Last saw six sigma black trainer in December 2020. On Eliquis and aspirin prescribed from her six sigma black trainer. Medical or cardiac clearance ordered: cardiac FERNY Andres CNP 05/12/21 2:43 PM documented in this encounterAgorafy Phone: evaluation + Plan noteGeneral Surgery Incentive Evaluation + Plan note Future Appointments Appointment Date:11/08/2022 02:00:00 PM Scheduled Provider:Iliana GAGNON MD Location:[facility] Appointment Type:[place] [id number] General Surgery Incentive Evaluation + Plan note Future Appointments Appointment Date:11/22/2022 01:40:00 PM Scheduled Provider:Iliana GAGNON MD Location:[facility] Appointment Type:[place] [address] General Surgery Incentive Evaluation note* Diagnosis Pre-op chest exam Pre-operative respiratory examination documented in this encounter [employer] Phone: evalbsyomt note* Diagnosis S/p Partial vaginectomy with Ultrasonic Scalpel 06/15/21- 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, 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 documented in this encounter [employer] Phone: evalnewnxc note* Diagnosis Pre-op chest exam Pre-operative respiratory examination documented in this encounter [employer] 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 documented in this encounter [facility] [employer] Phone: Evaluation note* Diagnosis 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, estrogen receptor positive (HCC)- Primary documented in this [facility]* Diagnosis 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 breast in female, estrogen receptor positive (HCC)- Primary [facility] encounter [facility]* Diagnosis 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, estrogen receptor positive (HCC)- Primary Claudication in peripheral vascular disease (HCC) Peripheral vascular disease, unspecified documented in this encounter [facility] noteNo assessment information [facility] Work Phone: Evaluation noteNo InformationNort [employer] 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, estrogen receptor positive (HCC)- Primary Rash Rash and other nonspecific skin eruption Other eczema Stage 3a chronic kidney disease (HCC) documented in this encounter [facility]* Diagnosis 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, estrogen receptor positive (HCC)- Primary Stage 3a chronic kidney disease (HCC) documented in this encounter [facility]* Diagnosis Onset Date Resolution Status Altered mental status acuteDiabetes mellitusacuteEdema of both lower legsacuteInflammationacuteLeg ulcer, leftacuteLeg wound, rightacuteOpen wound of left thighacuteUses walker acuteVaricose veins of both legs with edemaacute [facility] Work Phone: Evaluation note* Diagnosis Onset Date Resolution Status Altered mental status acuteDiabetes mellitusacuteEdema of both lower legsacuteInflammationacuteLeg ulcer, leftacuteLeg wound, rightacuteOpen wound of left thighacutePAD (peripheral artery disease)acuteUses walkeracuteVaricose veins of both legs with edemaacute [facility] Work Phone: Evaluation note* Diagnosis Hav (hallux abducto valgus), left- Primary Venous insufficiency Unspecified venous (peripheral) insufficiency Acquired deformity of left toe 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 ([facility]) Diabetes mellitus due to underlying condition with diabetic polyneuropathy, 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 ([facility]) Pain due to onychomycosis of toenails of both feet documented in this encounter [facility]* Diagnosis 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)- Primary Diabetes mellitus due to underlying condition with diabetic polyneuropathy, 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 (CMS/HCC) Pain due to onychomycosis of toenails of both feet Venous insufficiency Unspecified venous (peripheral) insufficiency Neoplasm of uncertain behavior of skin documented in this encounter [facility] HealthcareEvaluation note* Diagnosis 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, estrogen receptor positive (HCC)- Primary documented in this encounter [facility]* Diagnosis 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, estrogen receptor positive (HCC)- Primary Stage 3a chronic kidney disease (HCC) documented in this encounter [facility]* Diagnosis Neoplasm of uncertain behavior of skin- Primary Diabetes mellitus due to underlying condition with diabetic polyneuropathy, 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 (CMS/HCC) Pain due to onychomycosis of toenails of both feet Venous insufficiency Unspecified venous (peripheral) insufficiency 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) documented in this encounter [facility] HealthcareEvaluation note* Diagnosis Neoplasm of uncertain behavior of skin- Primary Diabetes mellitus due to underlying condition with diabetic polyneuropathy, 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 (HCC) Pain due to onychomycosis of toenails of both feet Venous insufficiency Unspecified venous (peripheral) insufficiency Acquired deformity of left toe documented in this encounter [facility] HealthcareEvaluation note* Diagnosis Onset Date Resolution Status Admit Date Osteoarthritis of right hip acuteNovember 2024 10:55am [facility] Work Phone: History general Narrative - Reported* Type Description Date Medical History DIABETES Medical HistoryHTNMedical HistoryASTHMAMedical History3 HEART STENT AND 1 LEG Medical HistoryHYPERLIPIDEMIAMedical HistoryHYPOTHYROIDMedical HistoryPAD Surgical HistorySTENT PLACEMENTSSurgical HistoryPSEUDO ANURYSMSurgical History BLADDER SUSPENSIONSurgical HistoryHYSTERECTOMYSurgical HistoryRLE & RT RENAL DSA'S, ANGIOPLASTIES & [id number] [employer] Other History general Narrative - Reported* Type Description Date Medical History DIABETES Medical HistoryHTNMedical HistoryASTHMAMedical History3 HEART STENT AND 1 LEG Medical HistoryHYPERLIPIDEMIAMedical HistoryHYPOTHYROIDMedical HistoryPAD Surgical HistorySTENT PLACEMENTSSurgical HistoryPSEUDO ANURYSMSurgical History BLADDER SUSPENSIONSurgical HistoryHYSTERECTOMYSurgical HistoryRLE & RT RENAL DSA'S, ANGIOPLASTIES & [id number] HistoryVAGINAL ABLASION OF CANCER CELLS [employer] Other Hospital course Narrative No data available for this section General Surgery [facility] Discharge instructions No data available for this section General Surgery [place] Progress note No data available for this section General Surgery [place] Reason for referral (narrative) Referred by: Iliana GAGNON MD Referred by: Iliana GAGNON MD General Surgery [place] [employer] for referral (narrative)* Diagnostic Procedure Only (Routine) - Pending ReviewSpecialtyDiagnoses / ProceduresReferred By ContactReferred To ContactBR IMAGING Diagnoses 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, estrogen receptor positive (HCC) Procedures MAGNO DIAGNOSTIC BILATERAL DIAGNOSTIC MAMMOGRAPHY COMPUTER-AIDED DETCJ Winnie Farris PA-C [address] [place] [address] [place] [address] [facility] [address] [place] [phone] Referral IDStatusReasonStart DateExpiration DateVisits RequestedVisits [id number] Review Auto-Generated Referral / [facility] LimaReason for referral (narrative)No reason for referral information availableGenesis Hospital Work Phone: Reason for visit Narrative* Auth/CertSpecialty Diagnoses / ProceduresReferred By ContactReferred To Contact Diagnoses Vaginal dysplasia VAGINAL DYSPLASIA Procedures SC OFFICE/OUTPT VISIT,PROCEDURE ONLY SC COMPLETE REMOVAL OF VAGINA WALL SC CYSTOURETHROSCOPY CYSTOSCOPY, VAGINECTOMY Emma Garza MD [address] [facility] [address] [place] [address] [employer] [address] [place] [address] Referral IDStatusReasonStart DateExpiration DateVisits RequestedVisits [id number] [employer] Phone: Summary Purpose Family History No Family [...] lead Latonia Burks PA-C [address] [facility] [address] [place] [address] SpecialtyDiagnoses / ProceduresReferred By ContactReferred To ContactCardiology Diagnoses Pre-op chest exam Procedures EKG 12 lead Kimmie, Latonia, PA-C [address] [facility] [address] [place] [address] Referral IDStatusReasonStart DateExpiration DateVisits RequestedVisits [id number] / Procedures Referred By ContactReferred To ContactVascular Surgery Diagnoses Claudication in peripheral vascular disease (HCC) Procedures CONSULT TO VASCULAR SURGERY OFFICE/OUTPATIENT [facility] 60-74 MINUTES Wallace Stone MD [address] [place] [address] Referral IDStatusReasonStart DateExpiration DateVisits RequestedVisits [id number] PCP Requested Referral /[id number] / ProceduresReferred By ContactReferred To ContactDermatology Diagnoses Rash Other eczema Procedures CONSULT TO DERMATOLOGY OFFICE/OUTPATIENT [facility] 60-74 MINUTES Wallace Stone MD [address] [place] [address] Referral IDStatusReasonStart DateExpiration DateVisits RequestedVisits [id number] PCP Requested Referral / Chief Complaint and [...] and content) DATE CREATED AUTHOR 02/05/2021 [facility] DATE CREATED AUTHOR AUTHOR'S ORGANIZ ATION 01/22/[address] [facility] DATE CREATED AUTHOR AUTHOR'S ORGANIZ ATION 06/23/2023 [facility] DATE CREATED AUTHOR AUTHOR'S ORGANIZ ATION 07/13/2023 [facility] DATE CREATED AUTHOR AUTHOR'S ORGANIZ ATION 10/10/2024 [facility] DATE CREATED AUTHOR AUTHOR'S ORGANIZ ATION 06/19/2025 [facility] DATE CREATED AUTHOR AUTHOR'S ORGANIZ ATION 07/05/2025 [facility] DATE CREATED AUTHOR AUTHOR'S ORGANIZ ATION 07/19/2025 [facility] DATE CREATED AUTHOR AUTHOR'S ORGANIZ ATION 07/24/2025 [facility] Reason for Visit (unrecogniz ed section and content) StatusReasonSpecialtyDiagnoses / ProceduresReferred By ContactReferred To Contact Diagnoses 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 SpecialtyDiagnoses / ProceduresReferred By ContactReferred To Contact Diagnoses Vaginal dysplasia VAGINAL DYSPLASIA Procedures SC OFFICE/OUTPT VISIT,PROCEDURE ONLY SC DESTRUCT,VAGINAL LESION(S),SIMPLE CO2 LASER VAPORIZATION OF LESIONS ([facility] CONF# [id number] - JEREMIAS) Emma Garza MD [address] [facility] [address] [place] [address] [facility] [address] [place] [address] Referral IDStatusReasonStart DateExpiration DateVisits RequestedVisits [id number] CoordinationSurgery updateReasonComments ConsultBreast CancerReasonCommentsBreast CancerReasonCommentsBreast CancerReason CommentsReferral [...] topically daily. 25 g bacitracin-polymyxin b (POLYSPORIN) 500-30804 UNIT/GM ointment Apply topically 2 times daily. [...] as needed 15 g bacitracin-polymyxin b (POLYSPORIN) 500-57034 UNIT/GM ointment Apply topically 2 times daily. [...] * 0937 (New Bag - Provider: Emma Plnukett MD - Comment: BACK TABLE) sodium chloride [...] Team Status: Inactive Member Role Status Nila Prery MD Primary Care Provider Active Start: October [...] DateEnd Date Mateus Perry MD [address] [place] [facility] [place] [address] PCP - GeneralFamily Medicine03/04/21Team MemberRelationshipSpecialtyStart DateEnd Date Mateus Perry MD [address] [place] [facility] [place] [address] PCP - GeneralFamily Medicine03/04/21Team MemberRelationshipSpecialtyStart DateEnd Date Mateus Perry MD [address] [place] [facility] [address] PCP - GeneralFamily Medicine03/04/21Team MemberRelationshipSpecialtyStart DateEnd Date Mateus Perry MD [address] [place] [facility] [place] [address] PCP - GeneralFamily Medicine03/04/21Team MemberRelationshipSpecialtyStart DateEnd Date Mateus Perry MD PCP - GeneralFamily Medicine01/05/17Team MemberRelationshipSpecialtyStart DateEnd Date Mateus Perry MD PCP - GeneralFamily Medicine01/05/17Team MemberRelationshipSpecialtyStart DateEnd Date Mateus Perry MD PCP - GeneralFamily Medicine01/05/17Team MemberRelationshipSpecialtyStart DateEnd Date Mateus Perry MD PCP - GeneralFamily Medicine01/05/17Team MemberRelationshipSpecialtyStart DateEnd Date Mateus Perry [facility]/05/17Team MemberRelationshipSpecialtyStart DateEnd Date Mateus Perry MD PCP - [facility]01/05/17Team MemberRelationshipSpecialtyStart DateEnd Date Mateus Perry MD [address] [place] [address] PCP - [facility]03/04/21 Team Status: Inactive Member Role Status Nila Perry MD Primary Care Provider Active Gemma Draper ProviderActiveTeam MemberRelationship SpecialtyStart DateEnd Date Mateus Perry MD PCP - [facility]01/05/17Team MemberRelationshipSpecialtyStart DateEnd Date Mateus Perry MD PCP - [facility]01/05/17 Team Status: Inactive Member Role Status Nila Perry MD Primary Care Provider Active Start: May 01, 2024 End: May 01, 2024Mattmonty Gonzales MDAttraghav ProviderActiveStart: May 01, 2024 End: May 01, 2024Team MemberRelationshipSpecialtyStart DateEnd Date Mateus Perry MD [address] [place] [facility] [place] [address] PCP - [facility]02/14/24Team MemberRelationshipSpecialtyStart DateEnd Date Mateus Perry MD [address] [place] [address] PCP - GeneralFamily Medicine02/14/24Team MemberRelationshipSpecialtyStart DateEnd Date Mateus Perry MD [address] [place] [address] PCP - GeneralFamily Medicine02/14/24Team MemberRelationshipSpecialtyStart DateEnd Date Mateus Perry MD [address] [place] [address] PCP - Generalmily Medicine02/14/24Team MemberRelationshipSpecialtyStart DateEnd Date Mateus Perry MD PCP - GeneralFamily Medicine01/05/17Team MemberRelationshipSpecialtyStart DateEnd Date Mateus Perry MD PCP - GeneralFamily Medicine01/05/17Team MemberRelationshipSpecialtyStart DateEnd Date Mateus Perry MD PCP - GeneralFamily Medicine01/05/17Team MemberRelationshipSpecialtyStart DateEnd Date Mateus Perry MD [address] [place] [address] PCP - Generalmily Medicine02/14/24 Team Status: Inactive [...] or prosecute any alcohol or drug abuse patient.[facility]imaIn the event this information is protected by the Federal Confidentiality of Alcohol and Drug Abuse Patient Records regulations: The Federal rules restrict any use of the information to criminally investigate or prosecute any alcohol or drug abuse patient.[facility] LimaIn the event this information is protected by the Federal Confidentiality of Alcohol and Drug Abuse Patient Records regulations: The Federal rules restrict any use of the information to criminally investigate or prosecute any alcohol or drug abuse patient.[facility]imaIn the event this information is protected by the Federal Confidentiality of Alcohol and Drug Abuse Patient Records regulations: The Federal rules restrict any use of the information to criminally investigate or prosecute any alcohol or drug abuse patient.[facility]imaIn the event this information is protected by the Federal Confidentiality of Alcohol and Drug Abuse Patient Records regulations: The Federal rules restrict any use of the information to criminally investigate or prosecute any alcohol or drug abuse patient.[facility]imaIn the event this information is protected by the Federal Confidentiality of Alcohol and Drug Abuse Patient Records regulations: The Federal rules restrict any use of the information to criminally investigate or prosecute any alcohol or drug abuse patient.[facility] LimaIn the event this information is protected by the Federal Confidentiality of Alcohol and Drug Abuse Patient Records regulations: The Federal rules restrict any use of the information to criminally investigate or prosecute any alcohol or drug abuse patient.[facility]imaIn the event this information is protected by the Federal Confidentiality of Alcohol and Drug Abuse Patient Records regulations: The Federal rules restrict any use of the information to criminally investigate or prosecute any alcohol or drug abuse patient.[facility]imaIn the event this information is protected by the Federal Confidentiality of Alcohol and Drug Abuse Patient Records regulations: The Federal rules restrict any use of the information to criminally investigate or prosecute any alcohol or drug abuse patient.[facility]imaIn the event this information is protected by the Federal Confidentiality of Alcohol and Drug Abuse Patient Records regulations: The Federal rules restrict any use of the information to criminally investigate or prosecute any alcohol or drug abuse patient.[facility]imaIn the event this information is protected by the Federal Confidentiality of Alcohol and Drug Abuse Patient Records regulations: The Federal rules restrict any use of the information to criminally investigate or prosecute any alcohol or drug abuse patient.[facility] Goals (unrecognized section and content) Goals may [...] BE BASED ON THE PRIMARY CLINICAL RECORDS. [employer] [facility]. provides no warranty or guarantee of the accuracy or completeness of information in this document.
[2025-08-04 10:45] VITALS: BP 176/84; BP 177/90; PULSE 85; PULSE 86; O2SAT 94; O2SAT 96
[2025-08-04] MEDS: IOHEXOL 240 MG/ML - 10 ML VIAL INJ (10:49)
[2025-08-04] MEDS: LIDOCAINE HCL 2% 400 MG/20 ML MDV 15 ML INJ (10:49)
[2025-08-04] MEDS: METHYLPREDNISOLONE ACETATE 40 MG/ML VIAL INJ (10:49)
[2025-08-04] MEDS: BUPIVACAINE HCL 0.25% PF 25 MG/10 ML VIAL 5 ML INJ (10:49)
[2025-08-04] MEDS: METHYLPREDNISOLONE ACETATE 40 MG/ML VIAL IM (10:49)
--- NOTE | 2025-08-04 10:50 | W.PM.PROCNOT ---
Date of procedure: 08/04/25 Pre-op diagnosis: Pain due to bilateral sacroiliitis Post-op diagnosis: same as pre-op Procedure: Procedure: Bilateral sacroiliac joint injection Medications: Bupivacaine 0.25% 4cc, depomedrol 40mg After informed consent was obtained, the patient was brought to the medical procedure unit and placed in the prone position, when a timeout was completed verifying correct patient, procedure, site, positioning, implant, and/or special equipment.? The skin overlying the area was prepped and draped in standard sterile fashion using alcohol.? A 25-gauge needle was inserted towards the left sacroiliac joint under direct fluoroscopic imaging.? Needle tip was advanced until the joint was encountered.? We instilled a total of 2 mL of solution.? The same procedure was then completed on the right side.? Postoperatively needles were removed.? The patient tolerated the procedure well without complication.? The patient reported reduction in pain symptoms postoperatively. Anesthesia: Local Surgeon: Jefferson Farmer Pathology: none sent Condition: stable Disposition: no change
== END 2025-08-04 10:56 | disposition home or self-care (01) ==
PROVIDERS: PCP Family Medicine; Visit Provider Anesthesiology
DX: M46.1 Sacroiliitis, not elsewhere classified (principal); G89.29 Other chronic pain; E11.8 Type 2 diabetes mellitus with unspecified complications; Z79.85 Long-term (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 injectable non-insulin antidiabetic drugs
CPT/HCPCS: 27096; 36415; 82948; J0665; J1010; Q9966

== ENCOUNTER 2025-08-13 09:30 | Outpatient (OUT) | payer MEDICARE, OTHER, SELFPAY ==
--- OUTSIDE RECORDS SUMMARY | 2025-08-05 13:15 | XMS_ITS | Encounter Summary ---
Author Organization [facility] Address [address] [place] [address] Care Team Providers Care Care Tech Name Role Phone Gil Blake MD Primary Care Provider [phone] Reason for Referral * Imaging (Routine) - Pending ReviewSpecialtyDiagnoses / ProceduresReferred By ContactReferred To ContactCardiology Diagnoses Acute combined systolic and diastolic heart failure (CMS/HCC) Atrial fibrillation, unspecified type (CMS/HCC) Abnormal EKG Procedures Transthoracic echo (TTE) complete Brian Potter MD [address] [place] [address] Phone: tel: fax: Referral IDStatusReasonStart DateExpiration DateVisits RequestedVisits [id number] Review Perform Procedure Reason for Visit * ReasonCommentsFollow-upCoronary Artery DiseaseHyperlipidemiaHypertension Congestive Heart FailureAtrial FibrillationLBBBVaricose veins of both legs with edema Encounter Details DateTypeDepartmentCare Team (Latest Contact Info)Oxpkzbbhzva82/25/2025 1:15 PM ESTOffice Visit [facility] [place] [address] [place] [address] Brian Potter MD [address] [place] [address] Acute combined systolic and diastolic heart failure (CMS/HCC) (Primary Dx); Atrial fibrillation, unspecified type (CMS/HCC); Abnormal EKG Social History Tobacco UseTypesPacks/DayYears UsedDateSmoking Tobacco: FormerCigarettesPassive [...] of sexual activity by your partner or ex-partner?09/12/2024PHQ-2AnswerDate RecordedPatient Health Questionnaire-2 [id number] Safety & Environment AnswerDate RecordedFear of Current [...] were you homeless or living in a chcf (including now)?No09/12/2024Hunger Vital SignAnswerDate RecordedWithin the past 12 months, you worried that your food would run out before you got the money to buymore.Never true09/12/2024Within the past 12 months, the food you bought just didn't last and you didn't have money to get more.Never true 09/12/2024CommentsNoSex and Gender InformationValueDate RecordedSex Assigned at IzgmkQswxwt38/08/2025 9:20 PM EDTLegal HxiXrlgcw28/29/2022 10:03 PM EDTGender YqkteobsDipbop27/21/2025 12:40 PM ESTSexual OrientationChoose not to xgqkaoqh45/08/2025 9:20 PM EDTdocumented as of this encounter Last Filed Vital Signs Vital SignReadingTime TakenCommentsBlood Cygmmhgh201/7411 1:38 PM EST Wuqeo566908/05/2025 1:38 PM ESTTemperature--Respiratory Rate--Oxygen Qbbcaiccgl25% 08/05/2025 1:38 PM ESTInhaled Oxygen Concentration--Sqhkpb64.7 kg (125 lb) 08/05/2025 1:38 PM LBGBdhvxe395.4 cm (5')08/05/2025 1:38 PM ESTBody Mass Index 24.41110/05/2024 1:38 PM ESTdocumented in this encounter Progress Notes * Brian Potter MD - 08/05/2025 1:15 PM EST Images from the original note were not included. [place] Electrophysiology Consult Note [place] Cardiology - [facility] Reason for visit: s/p CRTD and AVN ablation, wound issues 08/05/2025 Patient is here today for a 6 month follow up with device check. Patient had bilateral hip cortisone shot yesterday and was told she was in A-Fib. Patient denies chest pain, LOYD/SOB, leg swelling, dizziness/lightheaded, palpitations/racing heart. Patient complains of fatigue, bilateral leg pain from arthritis. Patient states the defibrillator feels heavy/different. Review of Systems Musculoskeletal: Positive for arthritis. 01/21/25 Patient is here today for a 3 month follow up. Patient states she is doing good. Patient states rosanne complaint is pain from her waist down [...] started wearing the bra strap over the devicesite and the constant throbbing has not caused the skin to open up. No fever and no discharge. The device is not visible but there is loss of skin integrity. Device check done today shows good function. Patient underwent the JBOSS ARCHITECT placement on 07/10/2024 and subsequently underwent an AV node ablation on08/12/2024. Prior HPI: Harman Horta is a 84 y.o. year old with [...] in A-fib. She was just discharged from [facility] for GI bleed. Eliquis and aspirin have been put on hold. She was originally scheduled forDCCV today with Dr. Keyes. Jardiance was stopped, and metoprolol was reduced to 100mg daily. She is feeling okay since discharge from hospital. States she has been in afib for years, and that sheis always in afib. She feels no symptoms. Denies chest pain, SOB, dizziness/lightheadedness. PMH: Past Medical History: Diagnosis Date Abnormal ECG Arrhythmia Atrial fibrillation ([facility]/HCC) CAD (coronary artery disease) Cancer ([facility]/HCC) CHF (congestive heart failure) ([facility]/HCC) Chronic kidney disease COPD (chronic obstructive pulmonary disease) ([facility]/HCC) Diabetes mellitus ([facility]/HCC) GI bleed Heart murmur Hyperlipidemia Hypertension PVD (peripheral vascular disease) PSH: Past Surgical History: Procedure Laterality Date CARDIAC CATHETERIZATION 12/15/2011, 08/23/2010, 12/30/2004, CORONARY STENT PLACEMENT HYSTERECTOMY 03/11/2005 INSERT / REPLACE / REMOVE PACEMAKER VASCULAR SURGERY SH: Social Drivers of Health Tobacco Use: Medium Risk (08/05/2025) Patient History Smoking Tobacco Use: Former Smokeless [...] Other: See Comments tendon issues tendon issues Bee Pollen Unknown Cefdinir Other Tramadol Other Acetaminophen Rash Oxycodone Rash Rash & GI upset Oxycodone-Acetaminophen Other GI upset & rash Sulfa (Sulfonamide Antibiotics) Rash Weight: 56.7kg Visit Vitals BP 129/74 (BP Location: Left arm, Patient Position: Sitting) Pulse 75 Ht 1.524 m (5') Wt 56.7 kg (125 lb) SpO2 96% BMI 24.41 kg/m?? OB Status Postmenopausal Smoking Status Former BSA 1.55 m?? Meds: Current Outpatient Medications on File Prior to Visit Medication Sig Dispense Refill albuterol 2.5 mg /3 mL (0.083 %) nebulizer solution USE 1 VIAL IN NEBULIZER 4 TIMES DAILY NEEDED(Patient taking differently: 2.5 mg if needed.) amLODIPine (Norvasc) 10 mg tablet Take 10 mg by mouth. anastrozole (Arimidex) 1 mg chemo tablet Take [...] mouth two times daily. fish oil concentrate (Hardin-3) 120-180 mg capsule Take 1,000 mg by mouth. furosemide (Lasix) 40 mg tablet Take 40 mg by mouth in the morning. glimepiride (Amaryl) 4 mg tablet Take 4 mg by mouth in the morning and at bedtime. hydrALAZINE (Apresoline) 100 mg tablet Take 100 mg by mouth if needed in the morning, at noon, and at bedtime. For SBP >130 hyoscyamine 0.125 mg SL tablet Take 0.125 mg by mouth every 4 (four) hours if needed. insulin glargine (Lantus) 100 unit/mL (3 mL) injection pen 16 Units in the morning. isosorbide mononitrate ER (Imdur) 60 mg 24 hr tablet Take 60 mg by mouth in the morning. leflunomide (Arava) 20 mg tablet Take 1 tablet by mouth in the morning. levothyroxine (Synthroid, [...] the morning. Take 1/2 a tablet daily pantoprazole (ProtoNix) 40 mg EC tablet Take 40 mg by mouth in the morning and at bedtime. potassium chloride CR (Klor-Con) 10 mEq ER tablet Take 10 mEq by mouth in the morning. simvastatin (Zocor) 40 mg tablet TAKE 1 TABLET BY MOUTH AT BEDTIME 90 tablet 3 spironolactone (Aldactone) 50 mg tablet Take 50 mg by mouth in the morning. sucralfate (Carafate) 1 gram tablet Take 1 g by mouth before breakfast, before lunch, before evening meal, and at bedtime. traMADol (Ultram) 50 mg tablet Take 50 mg by mouth every 6 (six) hours if needed. gabapentin (Neurontin) 300 mg capsule Take 300 mg by mouth two times daily. predniSONE (Deltasone) 10 mg tablet Take 10 mg by mouth in the morning. (Patient not taking: Reported on 08/05/2025) No current facility-administered medications on file prior to visit. Physical Exam: Constitutional: Appearance: She is well-developed. She is obese. She is not ill-appearing. HENT: Head: Normocephalic and atraumatic. Nose: Nose normal. Eyes: General: No scleral icterus. Pupils: Pupils are equal, round, and reactive to light. Neck: Thyroid: No thyromegaly. Vascular: No JVD. Cardiovascular: Device site: Wound has healed Rate and Rhythm: Normal rate. Rhythm regular and paced. Pulses: Radial pulses are 2+ on the [...] General: No swelling. Cervical back: Neck supple. Comments: uses a walker to assist with ambulation Skin: General: Skin is warm and dry. Neurological: General: No focal deficit present. Mental Status: She is alert and oriented to person, place, and time. Psychiatric: Mood and Affect: Mood normal. Behavior: Behavior is cooperative. Judgment: Judgment normal. Labs: @LABRESULTS@ No results found for: CHOLESTEROL TOTAL , HDL , LDL CALC , LDL DIRECT , TRIGLYCERIDES , TSH , T3 TOTAL , T4 TOTAL , THYROID PEROXIDASE AB , BNP EKG: ECG 02/13/2024: Atrial fibrillation, nonspecific interventricular conduction block, septal myocardialinfarction age undetermined. ECG 10/11/2018: sinus bradycardia with PVCs, LBBB ECG 10/01/2018: SR, LBBB Echo: Echocardiogram 06/04/2024: 1. The left ventricle is normal in size and exhibits moderately to severely reduced systolic function with global hypokinesis. Estimated LVEF is 30 to 35%. 2. Normal right ventricular size and systolic function. 3. Moderate mitral regurgitation. 4. Mild tricuspid regurgitation. 5. Normal right-sided pressures. Echocardiogram 02/13/2024: Global left systolic function is difficult to assess but appears reduced. Visually estimated ejection fraction is 45 to 50%. The right ventricle is poorly seen but appears normal in size with preserved systolic function. The aortic valve is calcified with restricted mobility. Limited echocardiogram was performed. Echocardiogram 10/16/2023: Global left endocrine systolic function is difficult to assess but appearspreserved, visually estimated ejection fraction is 55%. The right ventricle is poorly seen, it appears normal in size. Unable to assess systolic function. Anterior free space, trivial effusion versusfat pad. Transesophageal echocardiogram 07/09/2020: Global left ventricular systolic function is normal. EF evaluated by visual assessment. EF range isestimated at 55 % -60 %. The right ventricle appears normal in size. Right ventricular systolic function appears normal. The left atrium appears normal in size. The left atrial appendage is monolobular. There is no spontaneous echo contrast ( smoke ) in the left atrial appendage. Normal left atrial appendage, no thrombus seen. No intracardiac shunt by agitated saline injections. Moderate atherosclerotic plaque is seen in the aorta. Normal KAYLEE morphology with no thrombus noted. Echocardiogram 11/11/2019: The left ventricle is normal size. Global left ventricular systolic function is normal. The calculated 2D EF is 54 %. The EF is 55 % visually. The LV wall thickness was normal. The septum is abnormal in its motion. Grade 2, moderate diastolic dysfunction (pseudonormalized LV filling pattern). Unable to assess right sided pressures due to lack of measurable tricuspid regurgitation. echo 10/01/2018: Normal size left ventricle with mild left ventricular systolic dysfunction . Left ventricular hypertrophy Bi-atrial enlargement No doppler performed Echocardiogram 06/28/2018: Moderately decreased LV dysfunction, mild diastolic dysfunction, Borderline , moderate MR. EF 35-40%. Echocardiogram 12/15/2011: Global left ventricular systolic function is normal. Mild diastolic dysfunction. Left atrial enlargement. Mild mitral regurgitation. Stress test: Stress test 09/2016: no ischemia. EF 58%. Renal ultrasound 10/04/2018: 1. Evaluation is limited by patient body habitus and overlying bowel gas obscuring the renal arteries. 2. Elevated flow velocities within the renal arteries suggesting moderate or greater stenosis. Consider CTA of the renal arteries for further evaluation if needed. ABIs 07/18/2018: Right 0.54, Left 0.7. bilateral femoropopliteal disease. Coronary angiogram: Cath 07/20/2018: 1. Severe single-vessel coronary artery disease. 2. A 70%-80% in-stent restenosis in the mid RCA, reduced to 0% by balloon angioplasty and Synergy drug-eluting stenting. 3. Mild disease in the left coronary system. 4. Normal filling pressures. 5. Normal pulmonary arterial pressures. 6. Reduced cardiac output and cardiac index. 03/2013: 1. Efkvg-ur-dqaum angiogram with bilateral lower extremity angiogram. 2. Selective right lower extremity angiogram. 3. Atherectomy of the right superficial femoral and popliteal arteries. 4. Angioplasty and stenting of right popliteal and superficial femoral arteries. Diagnostic Imaging: No images are attached to the encounter Assessment and Plan: S/p JBOSS ARCHITECT-D: Patient has very little subcutaneous tissue and I am concerned about the potential for skin erosion. I would recommend that the patient see plastic surgery to see whether the device can be placed in a submuscular pocket. Longstanding persistent atrial fibrillation: S/p AV node ablation CHADSVASC score of 7 (age, femalegender, hypertension, DHF, CAD/PAD, diabetes) Acute on chronic systolic congestive heart failure -Continue GMDT with aldactone, toprol, jardiance. Coronary artery disease involving [place] coronary artery of cap[place] band heart without angina pectoris: She is doing well after the RCA KATHARINA stenting. No angina. Primary hypertension -Mildly elevated BP at 140/60 today. -Continue medications. Recurrent falls Impairment of balance PAD (peripheral artery disease) (CMS/HCC) Brian Potter MD Cardiac Electrophysiology [facility] documented in this encounter Plan of Treatment NameTypePriorityAssociated DiagnosesOrder ScheduleTransthoracic echo (TTE) completeEchocardiographyRoutine Acute combined systolic and diastolic heart failure (CMS/HCC) Atrial fibrillation, unspecified type (CMS/HCC) Abnormal EKG Expected: 08/05/2025 (Approximate), Expires: 08/05/2027documented as of this encounter Visit Diagnoses Diagnosis Acute combined systolic and diastolic heart failure (CMS/HCC)- Primary Acute combined systolic and diastolic heart failure Atrial fibrillation, unspecified type (CMS/HCC) Abnormal EKG Nonspecific abnormal electrocardiogram (ECG) (EKG) documented in this encounter Care Teams Team MemberRelationshipSpecialtyStart DateEnd Date Gil Blake MD [facility] [facility] [address] PCP - General09/16/22documented as of this encounter
--- OUTSIDE RECORDS SUMMARY | 2025-08-13 09:34 | XMS_ITS | Encounter Summary ---
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 Procedures HI OFFICE/OUTPATIENT [facility] 60 MINUTES Brian Potter MD [address] [place] [address] Phone: tel: fax: [facility] [address] [place] [address] Phone: tel: fax: Referral IDStatusReasonStart DateExpiration DateVisits RequestedVisits [id number] Specialty Services Required Encounter Details DateTypeDepartmentCare Team (Latest Contact Info)Aytngwlpagn70/25/2025Orders Only [facility] [place] [address] [place] [address] Brie Davidson MA 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 (Primary Dx) Social History Tobacco UseTypesPacks/DayYears UsedDateSmoking Tobacco: FormerCigarettesPassive Smoke Exposure: PastSmokeless Tobacco: NeverAlcohol UseStandard Drinks/Week CommentsNot Currently0 (1 standard drink = 0.6 oz pure alcohol)Humiliation, Afraid, Rape, and Kick questionnaireAnswerDate RecordedWithin the last year, have you been afraid of your partner or ex-partner?No09/12/2024Within the last year, have you been humiliated or emotionally abused in other ways by your partner or ex-partner?09/12/2024Within the last year, have you been kicked, hit, slapped, or otherwise physically hurt by your partner or ex-partner?No 09/12/2024Within the last year, have you been raped or forced to have any kind of sexual activity by your partner or ex-partner?09/12/2024PHQ-2AnswerDate RecordedPatient Health Questionnaire-2 [id number] Safety & Environment AnswerDate RecordedFear of Current [...] or from getting things needed for daily living?09/12/2024 Housing Stability Vital SignAnswerDate RecordedIn the last 12 months, was there a time when you were not able to pay the mortgage or rent on time?09/12/2024In the past 12 months, how many times have you moved where you were living?1 09/12/2024t any time in the past 12 months, were you homeless or living in a senior living (including now)?09/12/2024Hunger Vital SignAnswerDate RecordedWithin the past 12 months, you worried that your food would run out before you got the money to buymore.Never true09/12/2024Within the past 12 months, the food you bought just didn't last and you didn't have money to get more.Never true 09/12/2024CommentsNoSex and Gender InformationValueDate RecordedSex Assigned at GbtwcCkhdnq86/08/2025 9:20 PM EDTLegal UdoWivnmb87/29/2022 10:03 PM EDTGender WlgifrbuCdfvfl99/21/2025 12:40 PM ESTSexual OrientationChoose not to lrescqzj81/08/2025 9:20 PM EDTdocumented as of this encounter Plan of Treatment NameTypePriorityAssociated DiagnosesOrder ScheduleAmbulatory referral to Plastic SurgeryOutpatient ReferralRoutine 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
--- OUTSIDE RECORDS SUMMARY | 2025-08-13 09:34 | XMS_ITS | Clinical Summary ---
Author Organization [facility] Address [address] [facility] [place] [address] Care Team Providers Care Commissioner Of Officials Name Role Phone Unavailable Primary Care Provider Unavailabl e Source Comments The following information is NOT included in Care Everywhere downloads:Psychiatric notes, ECG results, Cardiac Rehab notes, Pulmonary Function notes, data from SmartForms (includes but not limited toPregnancy data,audiograms, eye exams, pre-surgical evaluation notes, well-child exam data).[facility] Social History Tobacco UseTypesPacks/DayYears UsedDateSmoking Tobacco: Never Assessed CommentsUnknownSex and Gender InformationValueDate RecordedSex Assigned at Not on fileLegal UeuZvigbl90/18/2025 4:12 PM EDTGender IdentityNot on fileSexual OrientationNot on file Plan of Treatment Health MaintenanceDue DateLast DoneCommentsTdap Wsyptvl9210/06/1960Hepatitis A (HAV) Vaccine (optional start 19+ years)1961Tetanus (Td or Tdap) Booster 2Pneumococcal Vaccine(s) (50+ yrs) (1 of 1 - PCV)1992Shingles (RZV) Vaccine (1 of 2)1992Hepatitis B (HBV) Vaccine (optional start 60+ years)2002Bone Emzrprorhlmd21/26/2008RSV vaccine (adult) (1 - 1-dose 75+ series)2017COVID-19 Vaccine (1 - 2024- season)2025Influenza Vaccine (#1)2025Pap SmearDiscontinued
--- OUTSIDE RECORDS SUMMARY | 2025-08-13 09:34 | XMS_ITS ---
Author Organization [facility] Address [address] [place] [address] Care Team Providers Care Buckle Sorter Name Role Phone Gil Blake MD Primary Care Provider [phone] Active Problems ProblemNoted DateDiagnosed DateAbnormal gait5Acquired thrombocytopenia 08/05/2025nemia of renal pqtpwso9408/05/2025nogenital (venereal) warts08/05/2025 Asthma without status mbgmxsihync42/25/2025ack pain08/05/2025Hip pain08/05/2025 Jhiopxfrps15/25/5860Xguesogn96/25/2025Diverticular disease of colon08/05/2025 Gastrointestinal modputqotg81/25/2025High grade squamous intraepithelial lesion on cytologic smear of anus (HGSIL)08/05/2025Iron deficiency wkrbio8908/05/2025 Lumbar ujoqvnnlgxywz65/25/2025Morbid xktmoda8608/05/2025Noninflammatory disorder of vulva08/05/2025Olecranon qtiftdkt76/25/3075Gaptwmzlhdkihq68/25/2025Rheumatoid ppnfmvarw40/25/2025Osteoarthritis of right hip08/05/2025Peripheral vertigo 08/05/2025Primary gout08/05/2025Right lower lobe jniemsdxt12/25/2025Moderate protein ucxgjsnhwvww33/25/2025Severe protein-calorie qmqegwuqxgap11/25/2025 Qztcthynkxw42/25/2025Urinary rpjwycmeubul90/25/9016Kzvyxozi92/25/2025Pacemaker 07/17/2024rimary akdsaafrvtcr80/06/2024LBBB (left bundle branch block) 07/17/2024aroxysmal atrial msffxcgtnyjr86/06/2024Longstanding persistent atrial cvdzazxefqbn46/22/2024cute combined systolic and diastolic heart failure 07/02/2024ltered mental obpkjn7906/12/2024Edema of both lower legs06/12/2024Leg ulcer, left06/12/2024Leg wound, right06/12/2024Open wound of left thigh 06/12/2024Uses lgepwe2006/12/2024Varicose veins of both legs with edema06/12/2024 Stage 3a chronic kidney wxgozrg4902/14/2023M type 2 (diabetes mellitus, type 2) 09/13/2022Vaginal aitisouun02/03/2023Vaginal intraepithelial neoplasia III (VAIN III)09/13/2022Vulvar intraepithelial neoplasia (VIVEK) grade 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, NYHA class Assessment & Plan (05/27/2024 12:51 PM EDT): Congestive heart failure is stable without worsening symptoms [facility] II -currently patient is euvolemic without [...] prevent rehospitalization forheart failure exacerbation Brain stem szxscuo2709/13/2022reast cancer of upper-outer quadrant of right female uwovup8409/13/2022ervical disc kvtjbjh4109/13/2022hronic anticoagulation 09/13/2022hronic low back pain09/13/2022hronic obstructive pulmonary disease 09/13/20229566Uxumuueznxoqcu37/03/2806Bobaz75/03/2023Invasive ductal carcinoma of right gbrhwo0009/13/20225772Ajmicfdfwj47/03/2023seudoaneurysm of femoral artery 09/13/2022ure tnrxchnrlzcjrnbokjdn68/03/2023Rectal qrmfpdit68/03/2023Stage 2 chronic kidney djfvdqq9709/13/2022ostoperative state2Chronic diastolic heart jczlegk29/09/3253Pmrfqaq65/08/2022HGSIL Pap smear of ulpvve2204/13/2021VAIN II (vaginal intraepithelial neoplasia grade II)10/13/2017 Overview (09/13/2022): Added automatically from request for surgery [id number] Atherosclerosis of [place] coronary artery of [place] heart without angina /08/2017 Assessment & Plan [...] exercise as tolerated and continue all medications. Lxzbpfqjpfpy37/08/2017 Assessment & Plan (05/27/2024 12:56 PM EDT): As above S/P coronary artery stent tcdpwrnnu55/08/2017 Assessment & Plan (05/27/2024 12:57 PM EDT): Remains on ASA No c/o angina or concerns Moderate smoker (20 or less per day)01/16/2017Angina qgfvebwg76/12/2012 Gastroesophageal reflux xoyzihw3112/22/20112674Pynewhjkprhhbh85/12/2012 Assessment & Plan (05/27/2024 12:54 PM EDT): Lipid abnormalities are elevated therefore will increase zocor to 40 mg daily. Will repeat lipid level and liver function in 2-3 months Fxexsfvlnteuug77/12/2012enign hypertensive cardiomyopathy with heart failure 12/22/2011 Assessment [...] * ChemicalLifetime DoseAutomatic EntryManual EntryFluoro Time17.9 minutes0 diquyec01.9 minutesAir Uutql150 mGy0 zMr036 mGyDose Area Whgmwrb07,940 mGy-cm2 0 mGy-cm247,940 mGy-cm2 Resolved Problems ProblemNoted DateDiagnosed DateResolved DateBMI 36.0-36.9,adult09/13/2022 07/17/2024aroxysmal atrial kvldtquvzaxy26 Assessment & Plan (05/27/2024 12:56 PM EDT): ZNG1QS9-FUSf= 6-7 at least with Age, Sex, CHF, CAD/Vascular disease, HTN, DM Currently per assessment she appears to be in rhythm heart rate well-controlled with metoprolol 200mg daily and she remains on Eliquis anticoagulation without any bleeding tendencies or concerns.
--- OUTSIDE RECORDS SUMMARY | 2025-08-13 09:34 | XMS_ITS | Clinical Summary ---
Author Organization [facility] Address [address] [place] [address] Care Team Providers Care Extractor Puller Name Role Phone Gil Blake MD Primary [...] BY MOUTH IN THE MORNING AND AT YFAWIPG5604/08/2024ctive febuxostat (Uloric) 40 MG tablet Take 40 [...] Problems No known active problems Encounters DateTypeDepartmentCare UqejYvtwhnuvinp21/23/2025 1:50 PM EDTOffice Visit [facility] [address] [facility] [address] [place] [phone] Peyman Roper DPM Neoplasm of uncertain behavior of skin (Primary Dx); Diabetes mellitus due to underlying condition with diabetic polyneuropathy, 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 detention insulin use (HCC); Pain due to onychomycosis of toenails of both feet; Venous insufficiency; Acquired deformity of left toe07/03/2025amboo flowsheet [facility] [address] [facility] [address] [place] [address] Peyman Roper DPM 07/03/2025Travelfrom Last 3 Months Family History Medical HistoryRelationNameCommentsArthritisMotherCancerMotherDiabetesMother Heart diseaseMotherHypertensionMotherRelationNameStatusCommentsFatherDeceased MotherDeceased Social History Tobacco UseTypesPacks/DayYears UsedDateSmoking Tobacco: FormerCigarettes Smokeless Tobacco: Never Tobacco Cessation:Counseling Given: Yes Alcohol UseStandard Drinks/WeekCommentsNever0 (1 standard drink = 0.6 oz pure alcohol)CommentsUnknownSex and Gender InformationValueDate RecordedSex Assigned at BirthNot on fileLegal QqkEydbmi88/15/2023 7:38 PM EDTGender Identity Not on fileSexual OrientationNot on file Last Filed Vital Signs Vital SignReadingTime TakenCommentsBlood Pressure--Pulse--Temperature-- Respiratory Cicp7317 1:58 PM EDTOxygen Saturation--Inhaled Oxygen Concentration--Lwpvoy61.8 kg (145 lb)07/03/2025 1:58 PM SHHWngkaj203.4 cm (5') 07/03/2025 1:58 PM EDTBody Mass Index28.321 1:58 PM EDT Plan of Treatment DateTypeDepartmentCare Team (Latest Contact Info)Ihgwztgxezy89/22/2026 1:50 PM ESTOffice Visit [facility] [address] [facility] [address] [place] [phone] Peyman Roper DPM [address] [facility] [address] [place] [address] Health MaintenanceDue DateLast DoneCommentsPneumococcal Vaccine: 65+ Years (2 of 2 - PCV), 06/15/2010COVID-19 Vaccine ( - 2024- season) , 11/06/2020, 10/09/2020Influenza Vaccine (#1)2025 06/25/2024, 07/01/2021, 06/10/2020, Additional history exists Insurance Care Teams Team MemberRelationshipSpecialtyStart DateEnd Gil Blake MD [address] [facility] [place] [address] PCP - GeneralFamily Medicine02/14/24
--- OUTSIDE RECORDS SUMMARY | 2025-08-13 09:34 | XMS_ITS | Clinical Summary ---
Author Organization [facility] Address [address], [address] [place] [address] Care Team Providers Care Technology Advisor Name Role Phone Gil Blake MD Primary Care Provider [phone] Allergies Active AllergyReactionsCriticalityNoted DateCommentsCefdinirNausea And Vomiting Low3CiprofloxacinHives,Other (See Comments)High09/29/2017 tendon issues OzptnhicsVghhFyb04/15/2019 Rash & GI upset TramadolDiarrhea,Nausea And MpxmmkgbAvhota11/01/2023 Medications MedicationSigDispense QuantityRefillsLast FilledStart DateEnd DateStatus amLODIPine [...] 1 tablet by mouth daily11/09/2022ctive nystatin (MYCOSTATIN) [id number] UNIT/GM cream Apply topically 2 times daily. 1 each ctive Additional Information Patient taking differently: DAILY PRN, Skin folds, Reported on 03/03/2023 vitamin D3 (CHOLECALCIFEROL) 125 MCG (5000 UT) TABS tablet Take 1 tablet by mouth daily11/29/2022ctive albuterol (PROVENTIL) (2.5 MG/3ML) 0.083% nebulizer solution Take 3 mLs by nebulization every 6 hours as needed for WheezingActive [place]-3 Fatty Acids (FISH OIL OMEGA-3 PO) Take [...] cancerSister Social History Tobacco UseTypesPacks/DayYears UsedDateSmoking Tobacco: [id number] - 2018Passive Smoke Exposure: PastSmokeless Tobacco: Never [...] with harm?Not on file 03/03/2023Read-Only, Retired: Physical EuasxFvxhec24/23/2023Read-Only, Retired: Verbal QnkmoBvqqky18/23/2023Read-Only, Retired: Emotional iymnhZeudyj13/23/2023 Read-Only, Retired: Financial KkmymYrwivf47/23/2023Read-Only, Retired: Sexual jxefnQlltlw07/23/2023CommentsNoSex and Gender InformationValueDate RecordedSex Assigned at BirthNot on fileLegal UvjBgmwzg26/10/2013 7:39 PM EST Gender IdentityNot on fileSexual OrientationNot on file Last Filed Vital Signs Vital SignReadingTime TakenCommentsBlood Lypwlbdt312/6511 1:23 PM EDT Rhxuh052407/12/2023 1:23 PM KQCJeaxwdkkjxb04.4 ??C (97.6 ??F)07/12/2023 1:23 PM EDTRespiratory Pims099603/06/2023 8:30 AM EDTOxygen Hpnjuevvsj81%07/12/2023 1:23 PM EDTInhaled Oxygen Concentration--Tqaiza58.4 kg (181 lb 9.6 oz)07/12/2023 1:23 PM DUAKtcljt678.9 cm (5' 0.98 )07/12/2023 1:23 PM EDTBody Mass Index34.33 07/12/2023 1:23 PM EDT Plan of Treatment Health MaintenanceDue DateLast ZmawXbzkqfmwWxjaqh50/26/1951Depression Screen 1954DTaP/Tdap/Td vaccine (1 - Tdap)2Pneumococcal 50+ [...] 11:07 AM * Full Code Date ActivatedDate IqaushcgbvxNbgzcofm19/18/2022 6:57 AM06/28/2022 2:17 PM Care Teams Team MemberRelationshipSpecialtyStart DateEnd Date Gil Blake MD [address] [place] [address] PCP - GeneralFamily Medicine03/04/21
--- OUTSIDE RECORDS SUMMARY | 2025-08-13 09:34 | XMS_ITS | Clinical Summary ---
Author Organization [facility] Address [address] [place] [address] Care Team Providers Care Observer Helper Name Role Phone Gil Blake MD Primary Care Provider [phone] Allergies Active AllergyReactionsCriticalityNoted DateCommentsAcetaminophenRashLow 5Bee MevckeMjzkwco42/25/8082KdlgnueePrgpy04/03/2023iprofloxacinHives, WknovYiwr05/19/2018 Other reaction(s): Other: See Comments tendon issues tendon issues KdtnuybngKffkPmd96/15/2019 Rash & GI upset Oxycodone-ZrbztumtbkogyYedgmFas42/21/2013 GI upset & rash Sulfa (Sulfonamide Antibiotics)YzlzEqr1108/05/20257600XehhtuaaVzlmr21/30/2024 Medications MedicationSigDispense QuantityRefillsLast FilledStart DateEnd DateStatus albuterol 2.5 mg /3 mL (0.083 %) nebulizer solution USE 1 VIAL IN NEBULIZER 4 TIMES DAILY XLTGMG1003/26/2022ctive aspirin 81 mg EC tablet Take 81 mg by mouth.Active fish oil concentrate ([place]-3) 120-180 mg capsule Take 1,000 mg by mouth.Active furosemide (Lasix) 40 mg tablet Take 40 mg by mouth in the morning.07/16/2022ctive glimepiride (Amaryl) 4 mg tablet Take 4 mg by mouth in the morning and at bedtime.07/16/2022ctive hydrALAZINE (Apresoline) 100 mg tablet Take 100 mg by mouth if needed in the morning, at noon, and at bedtime. For SBP >8286806/28/2022ctive isosorbide mononitrate ER (Imdur) 60 mg 24 [...] TABLET BY MOUTH AT BEDTIME 90 tablet tive gabapentin (Neurontin) 300 mg capsule Take 300 mg by mouth two times daily.Active hyoscyamine 0.125 mg SL tablet Take 0.125 mg by mouth every 4 (four) hours if needed.03/19/2025tive potassium chloride CR (Klor-Con) 10 mEq ER tablet Take 10 mEq by mouth in the morning.06/13/2025tive traMADol (Ultram) 50 mg tablet Take 50 mg by mouth every 6 (six) hours if needed.07/29/2025tive spironolactone (Aldactone) 50 mg tablet Take 50 mg by mouth in the morning.12/11/2023ctive Active Problems ProblemNoted DateDiagnosed DateAbnormal gait08/05/2025quired thrombocytopenia 08/05/2025nemia of renal eijnnvh2508/05/2025nogenital (venereal) warts08/05/2025 Asthma without status fnbefvrlfib56/25/2025ack pain08/05/2025Hip pain08/05/2025 Batmapfcbz33/25/1275Aezxwfrs83/25/2025Diverticular disease of colon08/05/2025 Gastrointestinal zyowjrslet66/25/2025High grade squamous intraepithelial lesion on cytologic smear of anus (HGSIL)08/05/2025Iron deficiency wepwxu7008/05/2025 Lumbar cmdnqtwruekyq96/25/2025Morbid xkgcogl0108/05/2025Noninflammatory disorder of vulva08/05/2025Olecranon iirbmwsz22/25/6609Hlpalwqrrlugdc99/25/2025Rheumatoid vsosqwtih04/25/2025Osteoarthritis of right hip08/05/2025Peripheral vertigo 08/05/2025Primary gout08/05/2025Right lower lobe pnztgufct61/25/2025Moderate protein kdmgkbmyihzx98/25/2025Severe protein-calorie penvnrteemsa76/25/2025 Kgfyufqlagc09/25/2025Urinary xhbpegrzgppc81/25/7421Mvvjddhu05/25/2025Pacemaker 07/17/2024rimary njnbfrylpafo55/06/2024LBBB (left bundle branch block) 07/17/2024aroxysmal atrial ftdcsengexpz99/06/2024Longstanding persistent atrial ymsilpnvzgok49/22/2024cute combined systolic and diastolic heart failure 07/02/2024ltered mental gpvfym0506/12/2024Edema of both lower legs06/12/2024Leg ulcer, left06/12/2024Leg wound, right06/12/2024Open wound of left thigh 06/12/2024Uses ydfixy0806/12/2024Varicose veins of both legs with edema06/12/2024 Stage 3a chronic kidney mzjuzcr1002/14/2023M type 2 (diabetes mellitus, type 2) 09/13/2022Vaginal /03/2023Vaginal intraepithelial neoplasia III (VAIN III)09/13/2022Vulvar intraepithelial neoplasia (VIVEK) grade 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 She has returned home from custodial facility and presents today with granddaughter who [...] prevent rehospitalization forheart failure exacerbation Brain stem eqvmzzq2309/13/2022reast cancer of upper-outer quadrant of right female hidjjh4309/13/2022ervical disc uqsprrk8709/13/2022hronic anticoagulation 09/13/2022hronic low back pain09/13/2022hronic obstructive pulmonary disease 09/13/20220928Chxnnpiefszixa67/03/2176Bxmpd74/03/2023Invasive ductal carcinoma of right gnlzuh9809/13/20221802Fumjrjvdqo02/03/2023seudoaneurysm of femoral artery 01/03/2023Pure /03/2023Rectal hdnpacjs98/03/2023Stage 2 chronic kidney drsrcco1509/13/2022ostoperative state2Chronic diastolic heart ipfmbsd3604/19/20225739Owkgbsn33/08/2022HGSIL Pap smear of tkdkej4504/13/2021VAIN II (vaginal intraepithelial neoplasia grade II)10/13/2017 Overview (09/13/2022): Added automatically from request for surgery [id number] Atherosclerosis of [place] coronary artery of [place] heart without angina fmqayzxh92/08/2017 Assessment & Plan (05/27/2024 12:48 PM EDT): [...] exercise as tolerated and continue all medications. Cepuznfeagem42/08/2017 Assessment & Plan (05/27/2024 12:56 PM EDT): As above S/P coronary artery stent wstkwusfl82/08/2017 Assessment & Plan (05/27/2024 12:57 PM EDT): Remains on ASA No c/o angina or concerns Moderate smoker (20 or less per day)01/16/2017Angina lxubajra43/12/2012 Gastroesophageal reflux nhsrpht5112/22/20113543Bveiedlnbgtjhj02/12/2012 Assessment & Plan (05/27/2024 12:54 PM EDT): Lipid abnormalities are elevated therefore will increase zocor to 40 mg daily. Will repeat lipid level and liver function in 2-3 months Hiyqysgicoswby54/12/2012enign hypertensive cardiomyopathy with heart failure 12/22/2011 Assessment & Plan (05/27/2024 12:49 PM EDT): Hypertension currently is well-controlled at 106/67 Continue amlodipine, hydralazine, Imdur, Toprol and spironolactone Currently renal function normal, no acute concerns. Tobacco user12/22/2011 Resolved Problems ProblemNoted DateDiagnosed DateResolved DateBMI 36.0-36.9,adult09/13/2022 07/17/2024aroxysmal atrial apgmmlvdkulh82 Assessment & Plan (05/27/2024 12:56 PM EDT): CFP8XM0-WGMe= 6-7 at least with Age, Sex, CHF, CAD/Vascular disease, HTN, DM Currently per assessment she appears to be in rhythm heart rate well-controlled with metoprolol 200mg daily and she remains on Eliquis anticoagulation without any bleeding tendencies or concerns. Encounters DateTypeDepartmentCare ZxwlIwdgqlddbez52/25/2025 1:15 PM ESTOffice Visit [facility] [address] [place] [facility] [place] [address] Brian Potter MD Acute combined systolic and diastolic heart failure (CMS/HCC) (Primary Dx); Atrial fibrillation, unspecified type (CMS/HCC); Abnormal EKG110/05/2024Orders Only [facility] [address] [place] [address] Brie Davidson MA 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 (Primary Dx)07/14/2025 7:30 AM ESTAncillary Procedure [facility] [address] [place] [phone] Pre-operative cardiovascular examination, ICD in place07/10/2025Orders Only [facility] [address] [place] [phone] Marisol Khoury MD 06/12/2025 1:00 PM EDTAncillary Procedure [facility] [address] [place] [phone] Pre-operative cardiovascular examination, ICD in place06/12/2025Orders Only [facility] [address] [place] [address] Brian Potter MD 06/12/2025Orders Only [facility] [address] [place] [address] Brian Potter MD 06/11/2025 12:35 PM EDTAncillary Procedure [facility] [address] [place] [address] Pre-operative cardiovascular examination, ICD in place06/01/2025Refill [facility] [address] [place] [address] Lorenza Phelan, GERRY Dyslipidemiafrom Last 3 Months Family History Medical HistoryRelationNameCommentsCoronary artery diseaseFatherHeart attack FatherStrokeMotherRelationNameStatusCommentsFatherDeceasedMotherDeceasedSister Social History Tobacco UseTypesPacks/DayYears UsedDateSmoking Tobacco: FormerCigarettesPassive Smoke Exposure: PastSmokeless Tobacco: Never Tobacco Cessation:Counseling Given: Not Answered Alcohol UseStandard Drinks/WeekCommentsNot Currently0 (1 standard drink = 0.6 oz pure alcohol)Humiliation, Afraid, Rape, and Kick questionnaireAnswerDate RecordedWithin the last year, have you been afraid of your partner or ex-partner?09/12/2024Within the last year, have you been humiliated or emotionally abused in other ways by your partner or ex-partner?09/12/2024 Within the last year, have you been kicked, hit, slapped, or otherwise physically hurt by your partner or ex-partner?09/12/2024Within the last year, have you been raped or forced to have any kind of sexual activity by your part ner or ex-partner?09/12/2024PHQ-2AnswerDate RecordedPatient Health Questionnaire-2 Pykfp582/02/2025UT Safety & EnvironmentAnswerDate RecordedFear of Current or [...] were you homeless or living in a halfway (including now)?No09/12/2024 Hunger Vital SignAnswerDate RecordedWithin the past 12 months, you worried that your food would run out before you got the money to buymore.Never true09/12/2024 Within the past 12 months, the food you bought just didn't last and you didn't have money to get more.Never true09/12/2024CommentsNoSex and Gender InformationValueDate RecordedSex Assigned at KsunrCczrux97/08/2025 9:20 PM EDT Legal NhpPelwsj76/29/2022 10:03 PM EDTGender PxnbcgqiFntjxn13/21/2025 12:40 PM ESTSexual OrientationChoose not to vdzorjdz43/08/2025 9:20 PM EDT Last Filed Vital Signs Vital SignReadingTime TakenCommentsBlood Secsecem779/7408/05/2025 1:38 PM EST Gllod291708/05/2025 1:38 PM ESTTemperature--Respiratory Avpm777809/12/2024 2:18 PM ESTOxygen Czssajkkey12%08/05/2025 1:38 PM ESTInhaled Oxygen Concentration-- Srwyql77.7 kg (125 lb)08/05/2025 1:38 PM VXCMwzesi303.4 cm (5')08/05/2025 1:38 PM ESTBody Mass Index24.41110/05/2024 1:38 PM EST Plan of Treatment Health MaintenanceDue DateLast DoneCommentsDiabetes: Hemoglobin A1C1942 Medicare Annual Wellness (AWV)3Diabetes: Retinopathy Screening 3Diabetes: Urine Protein Bgfrdcjtz37/26/1962Pneumococcal Vaccine: 50+ Years (1 of 2 - PCV)2Adult Qjygdou4710/06/1964Zoster Vaccines (1 of 2) 1992COVID-19 Vaccine (4 - season)/06/2021, 11/06/2020, 10/09/2020Influenza Vaccine (#1)/, 07/01/2021, 06/10/2020, Additional history existsDepression Izxqpbavw17/10/2024Fall Risk Nwduiphta14/10/2024HIB VaccinesAged OutNo longer eligible based on patient's [...] Expiration DateModel / Serial / LotVigilant X4 Antenna Engineer-D Is-1/Df4/Is4 Implanted:Qty: 1 on 07/10/2024 by [facility] ICDLeft: [facility] [id number]/03/[id number] / [id number] / [place] 4-Front S Active Fix Single Coil 59cm Implanted:Qty: 1 on 07/10/2024 by Brian Potter MD at [facility] [id number] / [id number] / Lead,Acuity X4,Spiral L - [id number] - [id number] Implanted:Qty: 1 on 07/10/2024 by [facility] MemorialLeadLe: [facility] [id number] / [id number] / Procedures Procedure NamePriorityDate/TimeAssociated DiagnosisCommentsCARDIAC DEVICE CHECK CHECK - PVHTAEDigfytc47/03/2025 1:09 PM EST Pre-operative cardiovascular examination, ICD in place CARDIAC DEVICE CHECK - REMOTE - XLIFiykihl01/30/2025 12:00 AM EDTCARDIAC DEVICE CHECK CHECK - LOYYSPGtunwwn66/08/2025 12:43 PM EDT Pre-operative cardiovascular examination, ICD in place CARDIAC DEVICE CHECK CHECK - KMKXJOPfpwxvx36/08/2025 12:42 PM EDT Pre-operative cardiovascular examination, ICD in place CARDIAC DEVICE CHECK - REMOTE ALERT - LKCVbzomvt64/02/2025 12:00 AM EDTCARDIAC DEVICE CHECK - REMOTE ALERT - RGCHmloiia96/02/2025 12:00 AM EDTfrom Last 3 Months Results * CARDIAC DEVICE CHECK - REMOTE - ICD (07/14/2025 1:09 PM EST) Only the most recent of3 resultswithin the time period is included. Specimen (Source)Anatomical Location / LateralityCollection Method / Volume Collection TimeReceived Time Narrative Authorizing ProviderResult TypeResult StatusBrian Potter [facility] IMPLANTABLE CARDIAC DEVICE PROCEDURESFinal ResultPerforming OrganizationAddressCity/State/ZIP Code Phone Number CPACS * Cardiac device check - Remote ICD (07/10/2025 12:00 AM EDT)Anatomical Region LateralityModalityOtherSpecimen (Source)Anatomical Location / Laterality Collection Method / VolumeCollection TimeReceived Time07/10/2025 Narrative Authorizing ProviderResult TypeResult StatusMarisol Khoury [facility] IMPLANTABLE CARDIAC DEVICE PROCEDURESFinal Result * Cardiac device check - Remote alert ICD (06/12/2025 12:00 AM EDT) Only the most recent of2 resultswithin the time period is included. Anatomical RegionLateralityModalityOtherSpecimen (Source)Anatomical Location / LateralityCollection Method / VolumeCollection TimeReceived Time06/12/2025 Narrative Authorizing ProviderResult TypeResult StatusPanilton Potter MDCV IMPLANTABLE CARDIAC DEVICE PROCEDURESFinal Result from Last 3 Months Insurance * Guarantor: Harman Horta LAccount TypeRelation to PatientDate of BirthPhone Billing AddressPersonal/BxmkssOdol[birth year][phone] [address] Care Teams Team MemberRelationshipSpecialtyStart DateEnd Gil Blake MD [address] [facility] [address] [address] PCP - General09/16/22
--- OUTSIDE RECORDS SUMMARY | 2025-08-13 09:34 | XMS_ITS | Clinical Summary ---
Author Organization [facility] Address [address] [place] [address] Care Team Providers Care Senior Graduate Advisor Name Role Phone Gil Blake MD Primary Care Provider [phone] Allergies Active AllergyReactionsCriticalityNoted DateCommentsCefdinirOther: See Comments, Bgqzmsng81/03/2023CiprofloxacinOther: See Gweaarmz12/19/2018 tendon issues Oxycodone-AcetaminophenIntolerance,GI Upset03/31/2013TramadolMental Status Crgnok6411/09/2022 Medications MedicationSigDispense QuantityRefillsLast FilledStart DateEnd DateStatus amLODIPine [...] daily at bedtime. Cut in half Active Ybbxe-1-XZA-EPA-Fish Oil 1,000 mg (120 mg-180 mg) cap [...] Problems ProblemNoted DateDiagnosed DateStage 3a chronic kidney ntaczxu1702/14/2023VAIN II (vaginal intraepithelial neoplasia grade II)10/13/2017 Overview (10/13/2017): Added automatically from request for surgery [id number] Vaginal wzyshn3501/20/2017Essential zwcmxhajuzke02/08/2017Type 2 diabetes mellitus without complication, without long-term current use of uzqhimn8701/16/2017 Ggqszwtvgrlmaj85/08/4552Uyenjmapbtlo19/08/2017Atherosclerosis of [place] coronary artery of [place] heart without angina /08/2017S/P coronary artery stent nnpxpqqba59/08/2017Moderate smoker (20 or less per day)01/16/2017PAD (peripheral [...] drink = 0.6 oz pure alcohol)PHQ-2AnswerDate RecordedPHQ-2 xbxuz0053Area Deprivation Index AnswerDate RecordedNational Score (1-100), lower number is lower risk78 02/14/2023State Score (1-10), lower number is lower gwpl648/ata from: https://www.neighborhoodatlas.medicine.[facility].edu/. Last address used for zwr[address]zoqrav[address] [place] 9750302/14/2023CommentsNoSex and Gender Information ValueDate RecordedSex Assigned at BirthNot on fileLegal HcfNctams71/27/2017 11:34 AM EDTGender IdentityNot on fileSexual OrientationNot on file Last Filed Vital Signs Vital SignReadingTime TakenCommentsBlood Kgnaqmql228/63010/08/2024 1:02 PM EST Upuxt573710/08/2024 1:02 PM OPPWzycmbsxlbn09.2 ??C (97.2 ??F)10/08/2024 1:02 PM ESTRespiratory Wvjh796610/08/2024 1:02 PM ESTOxygen Fwkadhfkjk02%10/08/2024 1:02 PM ESTInhaled Oxygen Concentration--Ivjory95.5 kg (148 lb 13 oz)10/08/2024 1:02 PM TYRRmzcbt693.9 cm (5' 0.98 )10/08/2024 1:02 PM ESTBody Mass Index28.13 10/08/2024 1:02 PM EST Plan of Treatment Health MaintenanceDue DateLast DoneCommentsDiabetic Foot Exam3Dilated Retinal Exam1952Urine Albumin:Creatinine Ratio3Anxiety Screening 1960epression Okxxmdcwa81/26/1961LDL Ydmxtfftfkj00/26/1961TaP,Tdap,Td Vaccine (1 - Tdap)1961hingrix Vaccine (1 of 2)1992Medicare Annual Wellness Visit09/11/2007one Density Tigsftjll30/26/2008RSV Vaccine (1 - 1-dose 75+ series)2017Pneumococcal Vaccine: 50+ (2 of 2 - PCV)01/19/2018 01/19/2017, 06/15/20109181RoO5K93///Advance Directive Discussion 5Covid-19 Vaccine ( - season)/06/2021, 11/06/2020, 10/09/2020Influenza Vaccine (#1)/, 06/10/2020, 06/07/2017, Additional history exists Medical Devices ImplantedTypeAreaManufacturerDevice IdentifierShelf Expiration DateModel / Serial / LotIntraocular LensIntraocular LensEye - LensStentStentChest Procedures Procedure NamePriorityDate/TimeAssociated DiagnosisCommentsHEMOGLOBIN W0UTeqzrvw 04/28/2020 1:36 PM EDT Type 2 diabetes mellitus with unspecified complications (HCC) Pre-op evaluation from Last 3 Months or Most Recently Relevant to Health Maintenance Results * (ABNORMAL) HGB A1C (04/28/2020 1:36 PM EDT)ComponentValueRef RangeTest Method Analysis TimePerformed AtPathologist SignatureHemoglobin A1C6.8(H)4.3 - 5.6 % 04/28/2020 9:23 PM EDTCleveland Clinic LaboratoriesComment: [place] Diabetes Association guidelines indicate that patients with HgbA1c in the range 5.7-6.4% are at increased risk for development of diabetes, and intervention by lifestyle modification may be beneficial. HgbA1c greater or equal to 6.5% is considered diagnostic of diabetes. Estimated Average Gpigewu751es/dL04/28/2020 9:23 PM EDTCKettering Health Springfield LaboratoriesComment: eAG: (Estimated average glucose) is a calculated value from HgbA1c and is field representative/health education of the average blood glucose level in the last 2-3 month period. Specimen (Source)Anatomical Location / LateralityCollection Method / Volume Collection TimeReceived TimeBlood specimen (specimen)WHOLE BLOOD SPECIMEN / Abmtqhn3204/28/2020 1:36 PM EDT04/28/2020 1:38 PM EDT Narrative Authorizing ProviderResult TypeResult StatusAndping Balderrama MDLABORATORYFinal Result Performing OrganizationAddressCity/State/ZIP CodePhone Number [facility] [address] [place] [address] [facility] [address] [place] [address] from Last 3 Months or Most Recently Relevant to Health Maintenance Insurance Advance Directives TypeDate RecordedPatient RepresentativeExplanationAdvance Directive(s)01/16/2017 3:59 PM Care Teams Team MemberRelationshipSpecialtyStart DateEnd Gil Blake MD PCP - GeneralFamily Medicine01/05/17
--- OUTSIDE RECORDS SUMMARY | 2025-08-13 09:38 | XMS_ITS | CCD ---
Author Organization [facility] Care Team Providers Care Electrophysiology Technician Name Role Phone Mateus Perry MD Primary Care Provider [phone] Mateus Perry Primary Care Physician Mateus Perry MD Primary Care Provider [phone] Mateus Perry MD Primary Care Provider [phone] MD Mateus Perry Primary Care Provider [phone] MD Christiano Gonzales Attending Provider Christiano Gonzales Unavailable [phone] Millie Storm Unavailable SONALI MCKINNEY Admitting [...] Unavailable HOY ., DR IGNACIO Consulting Unavailable [place], DR JUDSON Plunkett Consulting Unavailable MISC, DR [...] HOY ., DR IGNACIO Primary Care Unavailable [place], DR JUDSON Plunkett Consulting Unavailable NILL ., [...] Unavailable HOY ., DR IGNACIO Consulting Unavailable [place], DR JUDSON Plunkett Consulting Unavailable HOY ., [...] HOY ., DR IGNACIO Consulting Unavailable NILL, Iilana R Attending Unavailable NILL, Iliana R Attending [...] Unavailable MD Mateus Perry Primary Care Provider [phone] FERNY Mathews Attending Provider MD Mateus Perry Primary Care Provider [phone] FERNY Mathews Attending Provider Mateus Perry MD Primary Care Provider Mateus Perry MD Primary Care Provider VAIBHAV ASHTON Attending Unavailable WALLACE STONE Referring Unavailable HOModesta, MATEUS M Primary Care Unavailable HOModesta, MATEUS M Primary Care Unavailable Mateus Perry MD Primary Care Provider [phone] Christiano Mcdonnell MD Attending Provider Mateus Perry MD Primary Care Provider [phone] Christiano Mcdonnell MD Attending Provider Mateus Perry MD Primary Care Provider Christiano Mcdonnell MD Attending Provider Christiano Mcdonnell Attending Unavailable Mcdonnell, Christiano Admitting Unavailable Hoy, Mateus M Primary Care Unavailable Mcdonnell, Christiano Admitting Unavailable Mcdonnell, Christiano Attending Unavailable Hoy, Mateus M Primary Care Unavailable Cmdonnell, Christiano Admitting Unavailable Mcdonnell, Christiano Attending Unavailable [...] Unavailable Mateus Perry MD Primary Care Provider [phone] Christiano Mcdonnell MD Attending Provider [phone] Mor Cutler DO Attending Provider BRIAN KERN [...] (20 sources)Acetaminophen / oxyCODONE; Translations: [OXYCODONE-ACETAMINOPHEN] Drug Estjbie46-76-7889Jwpjj (See Comments), Intolerance, [facility]Pull[facility] ([facility] sources)Ciprofloxacin; Translations: [ciprofloxacin]Drug Drjvltv00-04-9385 Hives, Urticaria (disorder), Other: See CommentsHolmes County [facility] (20 sources)oxyCODONE; Translations: [oxycodone]Drug Aaiulrg97-67-2898Jqge, Itching (finding)[facility] (20 sources)cefdinir; Translations: [cefdinir]Drug Dcgswqc28-94-9019Xwovlyyk (disorder), Other: See Comments, Vomiting, Other (See Comments)General Surgery [facility] (18 sources)traMADol; Translations: [TRAMADOL]Drug Ttixkkd15-79-3878Wmraeg Status Change, Other (See Comments)[facility] (1 source)CefuroximeDrug Vvkourm86-87-1865U[facility]H [facility] Work Phone: (10 sources)Acetaminophen; Translations: [acetaminophen]Drug Hojkuia85-73-4324 [facility] (2 sources)Acetaminophen / oxyCODONEDrug Mupjnst87-68-5002[facility] (1 source)CefuroximeDrug Ysycdcq79-01-1356XjeM[facility] (2 sources)CiprofloxacinDrug AllergyMorrow County Hospital [facility] (1 source)cefdinirDrug Vmgfqke71-97-6568JsqiylcrrMount [facility] (1 source)CiprofloxacinDrug Fnxamdu34-77-9864OsuslwhrwMount St. [facility] (1 source)oxyCODONEDrug Bjupjjg12-09-7167Albltlwpd [facility] (1 source)traMADolDrug Abfvzei35-85-6107MhbdmxyjvMount St. [facility] Medications Current Medications MedicationDrug Class(es)DatesSig (Normalized)Sig (Original)acetaminophen 500 mg oral tablet (20 sources)Start: 04-30-2020 End: 48-22-8106tazy 2 tablets by mouth every six hours as neededacetaminophen (TYLENOL EXTRA STRENGTH) 500 mg tablet Take 2 tablets by mouth every 6 hours as needed for Pain. 60 tablet 04/30/2020 Active End: 54-65-0233rqlg 2 tablets by mouth every four hours as needed for pain acetaminophen (TYLENOL) 325 MG tablet Take 650 mg by mouth every 4 hours as needed for Pain 0 06/28/2022 Discontinued (Stop Taking at Discharge) End: 12-08-1470nwmt 1 tablet by mouth every four hours as neededAcetaminophen (TYLENOL ARTHRITIS PAIN PO) Take 1 tablet by mouth every 4 hours as needed 0 06/28/2022 Discontinued (Stop Taking at Discharge)Comment on above:Take 2 tablets by mouth every 6 hours as needed for Pain.acetaminophen 325 mg / HYDROcodone bitartrate 5 mg oral tablet (1 source)Opioid AgonistStart: 12-13-2021 End: 99-91-8738CBZKBjdzvzm-acetaminophen (NORCO) 5-325 MG per tablet Indications: Post-operative state Take 1 tablet by mouth every 4 hours as needed for Pain for up to 7 days. Intended supply: 7 days. Take lowest dose possible to manage pain 10 tablet 0 12/13/2021 12/20/2021 Activealbuterol 0.83 mg/ml inhalation solution (20 sources)beta2-Adrenergic AgonistStart: 92-20-0728kdgv 2.5 mg by inhalation four times dailyalbuterol 0.083% Inh Crys 3 mL 2.5 mg, 3 mL, NEB, QID, Refill(s) 0 Start Date: 09/02/22 Status: OrderedStart: 85-95-6178eifb 1.25 mg by inhalation every four to six hours as neededAlbuterol Sulfate 2.5 mg /3 mL (0.083 %) Solution For Nebulization Active 1.25 MG INHALATION EVERY 4-6 HOURS as needed for Shortness Of Breath April 24, 2019 11:00pm Complies with drug therapyStart: 02-30-9527zhvb 1 puff(s) by inhalation every six hours [...] Inhalation Three times a day Active End: 75-96-1316GUNESEBQM SULFATE (VENTOLIN INHALATION) Inhale 2 Puffs as [...] oral tablet (20 sources)Dihydropyridine Calcium Channel BlockerStart: 20-45-9278bnjk 1 tablet by mouth once dailyamLODIPine (NORVASC) 5 MG tablet Take 5 mg by mouth daily 0 04/05/2021 ActiveStart: 04-94-1345sqpu 5 mg by mouth once dailyStart: 70-73-5858tidu 5 mg by mouth once dailyAmlodipine Active 5 MG PO Daily April 25, 2019 12:00amComment on above:Take by mouth once daily.anastrozole 1 mg oral tablet (20 sources)Aromatase InhibitorStart: 11-09-2022 End: 20-07-0942nyut 1 tablet by mouth once dailyAnastrozole 1 mg tablet Active 1 MG PO Daily November 28, 2022 11:00pm Complies with drug therapyAnastrozole ActiveComment on above:Take 1 tablet by mouth once daily.apixaban 5 mg oral tablet (20 sources)Factor Xa InhibitorStart: 23-03-5175cqjz 1 tablet by mouth twice dailyApixaban (Eliquis) [...] sources)Platelet Aggregation Inhibitor, Nonsteroidal Anti-inflammatory Drug Start: 16-50-8003gckeldd 81 mg Chew Tab 81 mg = 1 tab(s), Chewed, Daily, Refills(s) 0 Start Date: 09/02/22 Status: OrderedStart: 48-02-1915Oznyebe (Chang Low Dose Aspirin) 81 mg Tablet,Delayed Release (Dr/Ec) Active 81 MG PO Daily April 24, 2019 11:00pm Complies with drug therapyComment on above:Take 81 mg by mouth once daily.bacitracin 0.5 unt/mg / polymyxin b 10 unt/mg topical ointment (2 sources)Polymyxin-class AntibacterialStart: 06-28-2022 End: 59-72-9852osormrpebq-polymyxin b (POLYSPORIN) 500-56251 UNIT/GM ointment Apply topically 2 times daily. 15 g 1 06/28/2022 06/28/2022 Discontinued (REORDER)cholecalciferol 0.125 mg oral tablet (13 sources)Vitamin DStart: 70-04-8079bfpt 1 tablet by mouth once daily Cholecalciferol [...] cartridge (1 source)Histamine-1 Receptor AntagonistStart: 12-13-2021 End: 12-75-5227jqvzclqztnBPVVE (BENADRYL) injection 12.5 mgdocosahexaenoic acid 120 mg / eicosapentaenoic acid 180 mg oral capsule (9 sources)take 1 capsule by mouth twice dailyOmega 3 1000 MG CAPS Take 1,000 mg by mouth 2 times daily 0 Active End: 26-14-8042liwm 1 capsule by mouth once dailyOmega-3 Fatty Acids (FISH OIL OMEGA-3) 1000 MG CAPS Take 1,000 mg by mouth daily 0 05/12/2021 Discontinued docusate sodium 50 mg / sennosides, long term 8.6 mg oral tablet (2 sources)Start: 06-28-2022 End: 85-93-7697imkw 8.6-50 mg by mouth once as neededsenna-docusate (PERICOLACE) 8.6-50 MG per tablet Take 1 tablet by mouth 2 times daily as needed for Constipation 60 tablet 1 06/28/2022 06/28/2022 Discontinued (REORDER)febuxostat 40 mg oral tablet (20 sources)Xanthine Oxidase InhibitorStart: 67-14-4665gtzb 1 tablet by mouth once dailyFebuxostat 40 mg tablet Active 40 MG PO Daily December 10, 2023 11:00pm Complies with drug therapyComment on above:Take 1 tablet by mouth every afternoon.2 ml fentaNYL 0.05 mg/ml injection (6 sources)Opioid AgonistStart: 38-38-0080knttdVXU (SUBLIMAZE) injection 50 mcg Start: 62-53-9879mohwuYSK (SUBLIMAZE) injection 25 mcgStart: 22-64-2899mfqzaPGN (SUBLIMAZE) injection 50 mcgStart: 72-56-6696bioapMYW (SUBLIMAZE) injection 25 mcgferrous sulfate 325 mg oral tablet (19 sources)Start: 80-82-8195pljj 1 tablet by mouth twice dailyFerrous Sulfate (Feosol) 325 mg (65 mg iron) tablet Active 325 MG PO Twice daily December 10, 2023 11:00pm Complies with drug therapyFish Oils (10 sources)Start: 81-70-3410gqsz 2 capsules by mouth once dailyFish Oil 1000 mg oral capsule 2,000 mg = 2 cap(s), Oral, Daily, Refills(s) 0 Start Date: 09/02/22 Status: Orderedtake 1 capsule by mouth once dailyFish Oil 1000 MG 1 capsule Orally Once a day for 30 day(s) Activefluconazole 100 mg oral tablet (1 source)Azole AntifungalStart: 43-02-6335wtie 1 tablet by mouth once daily fluconazole (DIFLUCAN) 100 MG tablet TAKE 1 TABLET BY MOUTH EVERY DAY 0 12/15/2021 Tltiqb12 actuat fluticasone furoate 0.1 mg/actuat / vilanterol 0.025 mg/actuat dry powder inhaler (11 sources)Corticosteroid, beta2-Adrenergic AgonistStart: 87-34-1893ICZY ELLIPTA 100-25 mcg/dose inhaler Inhale 1 Inhalation as instructed once daily. 08/21/2017 ActiveComment on above:Inhale 1 Inhalation as instructed once daily. furosemide 40 mg oral tablet (20 sources)Loop DiureticStart: 37-27-6166jfkv 1 tablet by mouth every other day Furosemide 40 mg Tablet Active 40 MG PO Q2D November 28, 2022 11:00pm Complies with drug therapyStart: 27-19-8919edov 1 tablet by mouth twice dailyLasix 20 [...] 100 mg oral capsule (1 source)Anti-epileptic AgentStart: 62-90-0780Fqoadofxzp 100 mg capsule Active MG PO July 14, 2025 12:00am Complies with drug therapyhydrALAZINE hydrochloride 100 mg oral tablet (20 sources)Arteriolar VasodilatorStart: 88-27-8360ccjn 1 tablet by mouth three times dailyHydralazine 100 mg Tablet Active 100 MG PO Three times daily April 24, 2019 11:00pm Complies with drug therapyComment on above:Take 100 mg by mouth three times daily. hydroCHLOROthiazide 12.5 mg oral tablet (20 sources)Thiazide DiureticStart: 92-05-6678umlt 1 tablet by mouth twice daily hydrochlorothiazide 12.5 mg Tab 12.5 mg = 1 tab(s), Oral, BID, Refills(s) 0 Start Date: 09/02/22 Status: OrderedStart: 03-20-2021 End: 39-12-8498updndNKCLLQfslyofkw (HYDRODIURIL) 12.5 MG tablet Take by mouth every other day On days taking-takesmed twice per day 0 03/20/2021 05/12/2021 Discontinued (Therapy completed)Start: 04-25-2019 End: 65-74-6029iubb 1 tablet by mouth once dailyHydrochlorothiazide 12.5 mg Tablet Discontinued 12.5 MG PO Daily April 24, 2019 11:00pm November 29, 2022 8:20amhydroCHLOROthiazide (HYDRODIURIL) 25 MG tablet Take 12.5 mg by mouth every other day 0 Active End: 53-44-4957snod 2 tablets by mouth every other dayhydroCHLOROthiazide (HYDRODIURIL) 12.5 MG tablet hydrochlorothiazide 12.5 mg tablet Take 2 tablets e very other day by oral route for 30 days. 0 05/12/2021 DiscontinuedComment on above:Take 12.5 mg by mouth once daily. 3 ml insulin glargine 100 unt/ml pen injector (8 sources)Insulin AnalogStart: 52-79-0017rvcosw 10 [IU] by subcutaneous injection once daily in the eveningInsulin Glargine (Lantus Solostar U-100 Insulin) 100 unit/mL (3 mL) insulin pen Active 10 UNIT SUBCUT Every evening December 10, 2023 11:00pm Complies with drug therapyinsulin lispro 100 unt/ml injectable solution (2 sources)Insulin AnalogStart: 02-10-9793Asvobiv Lispro (Humalog U-100 Insulin) 100 unit/mL solution Active 1 sliding scale dose SUBCUT As Directed December 10, 2023 11:00pm Complies with drug therapyInsulin Lispro (Humalog U-100 Insulin) 100 unit/mL solution (6 sources)Start: 50-64-8399Zjcgnlt Lispro (Humalog U-100 Insulin) 100 unit/mL solution Active 1 sliding scale dose SUBCUT As Directed December 10, 2023 11:00pm Start: 04-78-9803Afgckou Lispro (Humalog U-100 Insulin) 100 unit/mL solution Active 1 sliding scale dose SUBCUT As Directed December 11, 2023 12:00am24 hr isosorbide mononitrate 60 mg extended release oral tablet (20 sources)Nitrate VasodilatorStart: 64-46-4669qgfx 1 tablet by mouth once daily in [...] sodium 0.112 mg oral tablet (20 sources)l-ThyroxineStart: 37-78-5888wlae 1 tablet by mouth once daily levothyroxine 112 mcg (0.112 mg) Tab 112 mcg = 1 tab(s), Oral, Daily, Refills(s) 0 Start Date: 09/02/22 Status: OrderedStart: 92-47-8740eygn 1 tablet by mouth once dailyLevothyroxine 112 mcg Tablet Active 112 MCG PO Daily April 24, 2019 11:00pm Complies with drug therapyStart: 75-24-9232douhbzmfqmasb (SYNTHROID) 112 mcg tablet Take 125 mcg by mouth once daily. 12/08/2016 Active End: 45-13-5872sxcf 1 tablet by mouth once dailylevothyroxine (SYNTHROID) 125 MCG tablet Take 125 mcg by mouth Daily 0 05/12/2021 DiscontinuedComment on above:Take 125 mcg by mouth once daily. lidocaine 0.05 mg/mg topical ointment (1 source)Antiarrhythmic, Amide Local AnestheticStart: 06-15-2021 End: 11-97-9773kpnrhihuf (XYLOCAINE) 5 % ointment Apply topically as needed to the affected area. 50 g 1 06/15/2021 06/15/2021 Discontinued (Stop Taking at Discharge)liothyronine sodium 0.005 mg oral tablet (20 sources)l-TriiodothyronineStart: 41-27-0379aqap 1 tablet by mouth once daily Liothyronine 5 mcg tablet Active 5 MCG PO Daily November 28, 2022 11:00pm Complies with drug therapyStart: 56-55-8405ecnc 2 tablets by mouth once daily Cytomel [...] hydrochloride 500 mg oral tablet (20 sources)BiguanideStart: 45-51-1008yjnd 1 tablet by mouth twice daily Metformin 500 mg Tablet Active 500 MG PO Twice daily April 24, 2019 11:00pm Complies with drug therapyComment on above:Take 500 mg by mouth twice daily with meals.24 hr metoprolol succinate 200 mg extended release oral tablet (20 sources)beta-Adrenergic BlockerStart: 75-35-5704schh 1 tablet by mouth once dailyMetoprolol Succinate 200 mg Tablet Extended Release 24 Hr Active 200 MG PO Daily April 24, 2019 11:00pm Complies with drug therapy End: 07-59-8410fxtq 0.5 tablet by mouth once dailymetoprolol tartrate, [...] 100 unt/mg topical powder (7 sources)Polyene AntifungalStart: 97-72-2642mjxmlvbi (MYCOSTATIN) 765862 UNIT/GM powder Apply 3 times daily. 60 g 10 06/28/2022 Activenystatin (MYCOSTATIN) 826453 UNIT/GM powder Apply topically 2 times daily as needed 0 KcqooyLsigv-7-PUO-EPA-Fish Oil 1,000 mg (120 mg-180 mg) cap (11 sources)take 1 capsule by mouth twice cnfjuPfiop-9-NVU-EPA-Fish Oil 1,000 mg (120 mg-180 mg) cap Take 2 g by mouth twice daily. Activetake 1 capsule by mouth twice nuiwnWqirq-8-QMG-EPA-Fish Oil 1,000 mg (120 mg-180 mg) cap Take 2 g by mouth twice daily. 0 ActiveComment on above:Take 2 g by mouth twice daily. Ggzoc-7h-Jpc-Epa-Fish Oil ([place]-3 Fish Oil) 300-1,000 mg Capsule (9 sources)Start: 02-58-4984Wkwub-8w-Ffo-Eal-Fish Oil ([place]-3 Fish Oil) 300- 1,000 mg Capsule Active 2 CAP PO Twice daily April 24, 2019 11:00pm Complies with drug therapyStart: 21-29-6057Nccta: 32-56-4026Fzzsr-6r-Cfs-Zre-Fish Oil ([place]-3 Fish Oil) 300-1,000 mg Capsule Active 2 CAP PO Twice daily April 24, 2019 11:00pmStart: 43-53-9775Tjlfh-5s-Nlk-Qhy-Fish Oil ([place]-3 Fish Oil) 300- 1,000 mg Capsule Active 2 CAP PO Twice daily April 25, 2019 12:00am ondansetron 4 mg disintegrating oral tablet (14 sources)Serotonin-3 Receptor AntagonistStart: 42-35-5492ipjs 1 tablet by mouth four times dailyondansetron 4 mg Dis Tab 4 mg = 1 tab(s), Oral, QID, Refills(s) 0 Start Date: 09/02/22 Status: OrderedStart: 06-28-2022 End: 77-92-2918gvfgmekpwie (ZOFRAN) injection 4 mgStart: 12-13-2021 End: 75-86-0843rvwogchmwdo (ZOFRAN) injection 4 mg End: 24-13-2667rsdn 1 tablet by mouth every eight hours as neededondansetron (ZOFRAN) 4 mg tablet Take 4 mg by mouth every 8 hours as needed for nausea/vomiting. 0 06/20/2023 Discontinued (Discontinued by Patient)Comment on above:Take 4 mg by mouth every 8 hours as needed for nausea/vomiting. pantoprazole 40 mg delayed release oral tablet (14 sources)Proton Pump InhibitorStart: 81-32-0864pkkf 1 tablet by mouth once dailyPantoprazole [address] Tab 40 mg = 1 tab(s), Oral, Daily, Refills(s) 0 Start Date: 09/02/22 Status: OrderedStart: 09-02-2022 End: 42-61-4666vjhq 1 tablet by mouth once dailyPantoprazole [address] Tab 40 mg = 1 tab(s), Oral, Daily, Refills(s) 0 Start Date: 09/02/22 Status: Ordered End: 33-88-0690ntji 1 tablet by mouth once dailypantoprazole DR (PROTONIX) 40 mg tablet Take 40 mg by mouth once daily. 0 06/20/2023 Discontinued (Discontinued by Patient)Comment on above:Take 40 mg by mouth once daily.potassium chloride 10 meq extended release oral tablet (13 sources)Start: 77-95-7070Vbtmffwsb Chloride 10 mEq tablet extended release Active MEQ PO July 14, 2025 12:00am Complieswith drug therapyStart: 00-13-4788bygo 1 tablet by mouth three times dailypotassium [...] mg/ml rectal foam (2 sources)Start: 06-28-2022 End: 07-50-9830yheoasezy HCl (PROCTOFOAM) 1 % foam Apply to hemorrhoids and anal area for postop pain as needed 15g 0 06/28/2022 06/28/2022 Discontinued (REORDER)predniSONE 5 mg oral tablet (5 sources)Start: 99-51-3848obfytsDOGW (DELTASONE) 5 mg tablet TAKE 6 TABLETS ON DAYS 1-3 DIRECTED AND DECREASE BY 1 TAB EVERY 3 DAYS 06/08/2023 ActiveStart: 63-50-2841iffsfyICTT (DELTASONE) 20 MG tabletComment on above:TAKE 6 TABLETS ON DAYS 1-3 DIRECTED AND DECREASE BY 1 TAB EVERY 3 DAYSsilver sulfADIAZINE 10 mg/ml topical cream (2 sources)Sulfonamide AntibacterialStart: 06-28-2022 End: 74-43-9325urprfn sulfADIAZINE (SILVADENE) 1 % cream Apply topically daily. 25 g 1 06/28/2022 06/28/2022 Discontinued (REORDER)simvastatin 20 mg oral tablet (20 sources)HMG-CoA Reductase InhibitorStart: 09-02-2022 End: 43-72-5757cord 1 tablet by mouth once daily at bedtimesimvastatin 20 mg Tab 20 mg = 1 tab(s), Oral, Once a day (at bedtime), Refills(s) 0 Start Date: 08/12 11/30 Status: OrderedStart: 16-90-1197ndqe 1 tablet by mouth once daily in [...] chloride flush 0.9 % injection 5-40 mLStart: 34-47-5691ssliha chloride flush 0.9 % injection 5-40 mLStart: .9 % sodium chloride infusion Start: 39-87-7695lnrgha chloride flush 0.9 % injection 5-40 mLspironolactone 50 mg oral tablet (15 sources)Aldosterone AntagonistStart: 47-48-0248xqrk 1 tablet by mouth once dailySpironolactone (Aldactone) 50 mg tablet Active 50 MG PO Daily December 10, 2023 11:00pm Complies with drug therapyStart: 39-18-0502zukr 0.5 tablet by mouth in the morningspironolactone (ALDACTONE) 25 MG tablet TAKE 1/2 TABLET BY MOUTH IN THE MORNING 0 09/22/2022 Activesucralfate 1000 mg oral tablet (20 sources)Aluminum ComplexStart: 36-08-0855xkyf 1 tablet by mouth at bedtime Sucralfate 1 gram tablet Active 1 GM PO Before meals and at bedtime November 28, 2022 11:00pm Complies with drug therapyStart: 59-65-7737Ivdyhafi 1 gram Tab 1 gm = 1 tab(s), Oral, QIDACHS, Refills(s) 0 Start Date: 09/02/22 Status: Ordered Sucralfate ActiveComment on above:Take 1 g by mouth four times daily. Sulfamethoxazole / Trimethoprim (2 sources)Dihydrofolate Reductase Inhibitor Antibacterial, Sulfonamide AntimicrobialBactrim ActivetraMADol hydrochloride 50 mg oral tablet (1 source)Opioid AgonistStart: 05-57-0488khlo 1 tablet by mouth once daily Tramadol 50 mg tablet Active 50 MG PO Daily July 14, 2025 12:00am Complies with drug therapytriamcinolone acetonide 1 mg/ml topical cream (6 sources)Corticosteroidtriamcinolone (KENALOG) 0.1 % cream Apply topically 2 times daily as needed 0 ActiveVitamin D3 (2 sources)Vitamin D3 ActiveVitamin D3 2000 intl units oral Tab (4 sources)Start: 18-97-7234xhsk 1 tablet by mouth once dailyVitamin D3 2000 intl units oral Tab 50 mcg, Oral, Daily, tab(s), Refills(s) 0 Start Date: 09/02/22 Status: Ordered Completed/Discontinued Medications MedicationDrug Class(es)DatesSig (Normalized)Sig (Original)albuterol 0.833 mg/ml / ipratropium bromide 0.167 mg/ml inhalation solution (1 source)Anticholinergic, beta2-Adrenergic AgonistStart: 06-15-2021 End: 46-82-3680zvvhopsyrex-albuterol (DUONEB) nebulizer solution 1 ampule amoxicillin 875 mg / clavulanate 125 mg oral tablet (8 sources)Penicillin-class AntibacterialStart: 02-13-2024 End: 55-64-2637cbbl 1 tablet by mouth once dailyAmoxicillin-Pot Clavulanate 875- 125 mg tablet Discontinued TAB PO Daily February 12, 2024 11:00pm July 14, 2025 11:07amcalcium chloride 0.0014 meq/ml / potassium chloride 0.004 meq/ml / sodium chloride 0.103 meq/ml / sodium lactate 0.028 meq/ml injectable solution (3 sources)Start: 06-28-2022 End: 00-90-9322andimptc ringers infusionStart: 81-31-7880nlxxcwyu ringers infusionStart: 21-89-7084opexuthl ringers infusioncetirizine hydrochloride 10 mg oral capsule (17 sources)Histamine-1 Receptor AntagonistStart: 04-25-2019 End: 43-27-5079kios 1 tablet by mouth twice dailyCetirizine (Zyrtec) 10 mg Capsule Discontinued 1 TAB PO Twice daily April 24, 2019 11:00pm 2022 8:23amStart: 01-28-2019 End: 90-36-3892nivo 1 tablet by mouth twice dailycetirizine (ZYRTEC) 10 mg tablet Take 10 mg by mouth twice daily. 11 01/28/2019 06/20/2023 Discontinued (Discontinued by Patient)Comment on above:Take 10 mg by mouth twice daily. citalopram 20 mg oral tablet (20 sources)Serotonin Reuptake InhibitorStart: 01-01-2019 End: 70-00-0577hjin 1 tablet by mouth once dailyCitalopram 20 mg Tablet Discontinued 20 MG PO Daily April 24, 2019 11:00pm November 29, 2022 8:23am Start: 23-21-3300eweibydhbg (CELEXA) 20 mg tablet 11 01/01/2019 Activedocusate sodium 100 mg oral capsule (8 sources)Start: 04-30-2020 End: 80-95-7964biic 2 capsules by mouth every twenty-four hours as needed docusate sodium (COLACE) 100 mg capsule Take 2 capsules by mouth at bedtime as needed (opioid-induced constipation). 60 capsule 0 04/30/2020 06/20/2023 Discontinued (Discontinued by Patient)Comment on above:Take 2 capsules by mouth at bedtime as needed (opioid-induced constipation).empagliflozin 10 mg oral tablet (19 sources)Sodium-Glucose Cotransporter 2 InhibitorStart: 12-11-2023 End: 31-03-9146dhdk 1 tablet by mouth once dailyEmpagliflozin (Jardiance) 10 mg tablet Discontinued 10 MG PO Daily December 10, 2023 11:00pm July 14, 2025 11:08am60 actuat formoterol fumarate 0.005 mg/actuat / mometasone furoate 0.1 mg/actuat metered dose inhaler (8 sources)Corticosteroid, beta2-Adrenergic AgonistStart: 2018 End: 26-85-4534OBEMNT 100-5 mcg/actuation inhalerglimepiride 4 mg oral tablet (20 sources)SulfonylureaStart: 04-25-2019 End: 89-33-7677whow 1 tablet by mouth twice dailyGlimepiride 4 [...] oral tablet (10 sources)Quinolone AntimicrobialStart: 09-21-2022 End: 94-40-0081xwcfNGJNzklv (LEVAQUIN) 750 mg tabletStart: 60-95-1342zfmi 1 tablet by mouth once dailylevoFLOXacin (LEVAQUIN) 500 MG tablet TAKE 1 TABLET BY MOUTH EVERY DAY 0 12/09/2021 Activetake 1 tablet by mouth once daily LEVOFLOXACIN PO Take 1 tablet by mouth daily 0 Activemeloxicam 15 mg oral tablet (17 sources)Nonsteroidal Anti-inflammatory DrugStart: 11-02-2022 End: 22-36-9170umjo 1 tablet by mouth once dailyMeloxicam 15 mg tablet Discontinued 15 MG PO Daily November 28, 2022 11:00pm December 11, 2023 8:24am Comment on above:Take 15 mg by mouth once daily.nitrofurantoin 5 mg/ml oral suspension (10 sources)Nitrofuran AntibacterialStart: 11-29-2022 End: 56-40-0038veyb 50 mg by mouth four times daily [...] valgus (acquired), left foot; Translations: [Hallux valgus (acquired)]51-85-3419GsonhoaQcxvacjp foot deformities (4 sources)Acquired deformity of toe of left foot; Translations: [Acquired deformities of toe(s), unspecified,left foot]66-47-2770PhrmdgmxHfpwy bronchitis (1 source)Acute bronchitis, unspecified; Translations: [ACUTE BRONCHITIS UNSPECIFIED]Onset: 06-09-3909XaixgcnfBogfliih reactions (1 source)Eczema; Translations: [Other specified dermatitis]EpisodicAortic; peripheral; and visceral artery aneurysms (4 sources)Femoral false ozhpirqj71-35-7937OqzpzeeVkimze (1 source)Unspecified asthma, uncomplicated; Translations: [UNSPECIFIED ASTHMA UNCOMPLICATED]Onset: 47-32-2612YunrobmFvzwdu of breast (20 sources)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 female breast; Translations: [Infiltrating ductcarcinoma of breast]Onset: 38-92-2953[place] Cancer of other female genital organs (20 sources)Vaginal intraepithelial neoplasia; 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]ChronicCardiac dysrhythmias (8 sources)Paroxysmal atrial fibrillation; Translations: [Paroxysmal atrial fibrillation]Onset: 768910-14-1484NojjbsgRzywrsh kidney disease (13 sources)Chronic kidney disease stage 2; Translations: [Chronic kidney disease, stage 2 (mild)]Onset: 575315-13-3371PpuumqcOcukyyg obstructive pulmonary disease and bronchiectasis (5 sources)Chronic obstructive lung disease; Translations: [Chronic obstructive pulmonary disease, unspecified]Onset: 404303-89-6635DqfffhhSufkvpe ulcer of skin (17 sources)Ulcer of lower extremity; Translations: [Non-pressure chronic ulcer of unspecified part of left lower leg with unspecified severity]12-11-2023 ChronicConditions associated with dizziness or vertigo (4 sources)Brain stem cukdpsj98-81-8777PnbykbbnXcutvxfnew disorders (4 sources)Presence of automatic (implantable) cardiac defibrillator; Translations: [Presence of cardiac pacemaker]Onset: 32-40-6982UrsirgiTsjszibzuu heart failure; nonhypertensive (18 sources)Acute combined systolic and diastolic heart failure; Translations: [Chronic diastolic heart failure]Onset: 899742-90-4835CriunnaArlvbuir atherosclerosis and other heart disease (16 sources)Coronary arteriosclerosis; Translations: [Coronary atherosclerosis] Onset: 542269-01-0089DbbwmfpIopdipak mellitus with complications (14 sources)Type 2 diabetes mellitus with diabetic chronic kidney disease; Translations: [Type 2 diabetes mellitus with diabetic peripheral angiopathy without gangrene]Onset: 01-67-0253BugrihqShhfjtqt mellitus without complication (20 sources)Diabetes mellitus; Translations: [Type 2 diabetes mellitus]Onset: 698406-94-3574RfywqljJtilalm on above:Problem List clean-up per request of Phys. EHR CmteDisorders of lipid metabolism (20 sources)Hypertriglyceridemia; Translations: [Pure hypercholesterolemia] Onset: 443930-77-3893BlenaneBemxwsuyjfmsbn and diverticulitis (4 sources)Diverticular pgefunz47-77-5314RmfcfsfHavxvkhicx disorders (5 sources)Gastroesophageal reflux disease; Translations: [Gastro-esophageal reflux disease without esophagitis]Onset: 423273-32-9380MevxfynBpvckrcil hypertension (20 sources)Hypertensive disorder; Translations: [Essential (primary) hypertension]Onset: 630933-73-0629PyycdaiWubn and other crystal arthropathies (1 source)Gout, unspecified; Translations: [Gout, unspecified]Onset: 10-29-2024 ChronicHypertension with complications and secondary hypertension (2 sources)Hypertensive heart and chronic kidney disease with heart failure and stage 1 through stage 4 chronic kidney disease, or unspecified chronic kidney disease; Translations: [Hypertensive heart disease with heart failure]Onset: 42-51-2459UnwchlcDoyajev (8 sources)Pain in toe; Translations: [Tinea unguium]42-14-4249SbvbueumUwmfdosvm of unspecified nature or uncertain behavior (6 sources)Neoplasm of uncertain behavior of skin; Translations: [Neoplasm of uncertain behavior of skin]84-73-8718DiojrnmcTrutxcfpp or stenosis of precerebral arteries (12 sources)Carotid artery stenosis; Translations: [Occlusion and stenosis of bilateral carotid arteries]ChronicOpen wounds of extremities (11 sources)Open wound of left thigh; Translations: [Unspecified open wound, left thigh, initial encounter]39-19-8507MgjojgctVwzv wounds of extremities (11 sources)Injury of right leg; Translations: [Unspecified open wound, right lower leg, initial encounter]63-36-2048SvfyvccnYonkggtabtvond (2 sources)Osteoarthritis of right hip joint; Translations: [Unilateral primary osteoarthritis, right hip]18-47-9960UjsjypvRlnxdgwpydzp (5 sources)Age-related osteoporosis without current pathological fracture; Translations: [AGE-REL OSTEOPOR W/OCURR PATH FX]Onset: 51-62-8674ZpicphrTztgq aftercare (5 sources)Long-term current use of anticoagulant; Translations: [correction (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]Onset: 01-76-7451YyuyjfihBeotx aftercare (1 source)intermediate card tender (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; Translations: [FOOD MIXER CURRNT USE ANTICOAGULANTS]Onset: 11-60-5509SqemhhkfZzwon aftercare (1 source)correction (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 oral hypoglycemic drugs; Translations: [SKILLED NURSING USE ORAL HYPOGLYCEMIC DX]Onset: 96-63-3144RuvtseekWcthx aftercare (1 source)Other ferry terminal agent (current) drug therapy; Translations: [OTH SKILLED NURSING CURRENT DRUG THERAPY]Onset: 22-47-6866NfmtyxzfAyrsq bone disease and musculoskeletal deformities (4 sources)Vzlndnwaoe94-07-7227OkyrkkyhIwvyi connective tissue disease (3 sources)Other specified soft tissue disordersEpisodicOther connective tissue disease (1 source)Pain in right lower legEpisodicOther diseases of veins and lymphatics (8 sources)Vascular insufficiency; Translations: [Venous insufficiency (chronic) (peripheral)]55-95-3771CudtxwknAazxt female genital disorders (3 sources)Dysplasia of vagina; 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, unspecified] EpisodicOther nutritional; endocrine; and metabolic disorders (4 sources)Body mass index 30+ - arxumhu26-31-1139ArtvaflXgppz skin disorders (1 source)Localized swelling, mass and lump, lower limb, bilateral; Translations: [LOC SWELL MASS LUMP LOW LIMB DAVID]Onset: 11-83-6524XooujhkmCoogw skin disorders (1 source)Eruption; Translations: [Rash and other nonspecific skin eruption] EpisodicPeripheral and visceral atherosclerosis (20 sources)Atherosclerosis of arteries of the extremities; Translations: [Peripheral vascular disease]Onset: 124775-83-3691WzvepglPqwauom on above: Problem List clean-up per request of Phys. EHR CmteResidual codes; unclassified (11 sources)Dependence on other enabling machines and devices; Translations: [Uses walker]25-14-6205PvbdktbAkykhqir codes; unclassified (4 sources)Oyzuj98-58-9402OmzjatbzJvwtsgbg codes; unclassified (6 sources)Localized edema; Translations: [Edema]EpisodicResidual codes; unclassified (4 sources)Edema, unspecified; Translations: [EDEMA UNSPECIFIED]Onset: 22-27-7127VwggojhgJwyjwqqf codes; unclassified (1 source)Family history of malignant neoplasm of breast; Translations: [FAMILY HX MALIG NEOPLASM OF BREAST]Onset: 16-14-5540SfrnswesQzsyaonu codes; unclassified (8 sources)Bilateral lower leg edema; Translations: [Localized edema]12-11-2023 EpisodicResidual codes; unclassified (8 sources)Altered mental status; Translations: [Altered mental status, unspecified]85-24-1946RmexkaqkHrvkjohs codes; unclassified (3 sources)Altered mental status, unspecified; Translations: [Altered mental status]86-83-6119ZqyzslamKocesfrs codes; unclassified (5 sources)Inflammatory nxnursrp64-96-6118PkosqbcyQfxxyopdde arthritis and related disease (1 source)Rheumatoid arthritis, unspecified; Translations: [Rheumatoid arthritis, unspecified]Onset: 07-43-0564AmzoiatPskkjatgy and history of mental health and substance abuse codes (1 source)Personal history of nicotine dependence; Translations: [PERSONAL HISTORY OF NICOTINE DEPEND]Onset: 34-70-0383PasefzzvWvvwtptrpwj; intervertebral disc disorders; other back problems (4 sources)Cervical disc ckrduyju14-19-3000NtarslnKmlgcksnyes; intervertebral disc disorders; other back problems (4 sources)Chronic low back gehf85-83-8746FyzhjdxpYgmbhvynf-tdbrktp disorders (11 sources)Moderate smoker (20 or less per day) ; Translations: [Nicotine dependence, cigarettes, uncomplicated]Onset: 129654-67-2970YfvlgytOdalzzo disorders (16 sources)Hypothyroidism; Translations: [Hypothyroidism, unspecified]Onset: 297602-21-6026PgwvuxcBpeemztvpjvo (4 sources)CONTACT W/AND (SUSP) EXPOS COVID-19; Translations: [CONTACT W/AND (SUSP) EXPOS COVID-19]Onset: 91-95-0335Wkgabydiqzov (1 source)COUGH, UNSPECIFIED; Translations: [COUGH, UNSPECIFIED]Onset: 82-17-6079Tbhplxtfozuv (2 sources)BX; Translations: [BX]Onset: 64-50-9710Jihntxctfnth (6 sources)Inflammatory disorder; Translations: [Inflammation]06-99-6160Hdopocs tract infections (4 sources)Urinary tract infection, site not specified; Translations: [UTI SITE NOT SPECIFIED]Onset: 90-09-6330RubwsgpnPzmtasvw veins of lower extremity (11 sources)Varicose veins of lower limb co-occurrent with edema; Translations: [Varicose veins of bilateral lower extremities with other complications] 21-93-8616JbkhqhwdPefyk infection (4 sources)COVID-19; Translations: [COVID-19]Onset: 03-17-2022 Past or Other Problems Problem ClassificationProblemDateDocumented DateEpisodic/ChronicCancer of other female genital organs (8 sources)High grade squamous intraepithelial lesion on vaginal Papanicolaou smear; Translations: [High gradesquamous intraepithelial lesion on cytologic smear of vagina (HGSIL)]Onset: 354988-34-5554WgzvntgfHcrfigz dysrhythmias (2 sources)Palpitations; Translations: [Palpitations]Onset: 55-25-7644Edvvmszj Coronary atherosclerosis and other heart disease (1 source)Presence of coronary angioplasty implant and graft; Translations: [PRESENCE COR ANGPLSTY IMPLANT AND GRAFT]Onset: 29-82-4621FwllqkixCwsoktiuan and other anemia (1 source)Anemia, unspecified; Translations: [ANEMIA UNSPECIFIED]Onset: 01-33-7006PmfsmkbrXnyam and electrolyte disorders (4 sources)Hypokalemia; Translations: [HYPOKALEMIA]Onset: 51-40-3088Qeeazqzs Gastritis and duodenitis (4 sources)Gastritis, unspecified, without bleeding; Translations: [GASTRITIS UNS WITHOUT BLEEDING]Onset: 62-57-2818DdvroqekBifaewrwpqcuzbxg hemorrhage (9 sources)Rectal hemorrhage; Translations: [Hemorrhage of anus and rectum] Onset: 708572-36-3967MpcaqmvuRjgxq valve disorders (1 source)Cardiac murmur, unspecified; Translations: [CARDIAC MURMUR UNSPECIFIED]Onset: 08-84-0271XmvcazxyQcllstovohhdy and screening for infectious disease (1 source)Encounter for immunization; Translations: [ENCOUNTER FOR IMMUNIZATION] Onset: 05-24-3951KlutethsVgictexovndn breast conditions (4 sources)Unspecified lump in the right breast, upper outer quadrant; Translations: [UNS LUMP IN RT BREAST UPOUTR QUAD]Onset: 26-54-8180SaekjvvlOxfow aftercare (1 source)intermediate card tender (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 aspirin; Translations: [FOOD MIXER CURRENT USE OF ASPIRIN]Onset: 59-03-3635FttetpslYawvo female genital disorders (11 sources)Vaginal lesion; Translations: [Other specified noninflammatory disorders of vagina]Onset: 205170-56-9099WgpagdfkJmrfu female genital disorders (11 sources)Vaginal intraepithelial neoplasia grade 2; Translations: [Moderate vaginal dysplasia]Onset: 978790-96-2773MmooweokYjcud female genital disorders (1 source)Other specified noninflammatory disorders of vagina; Translations: [Other specified noninflammatorydisorders of vagina]Onset: 98-31-0546Xmpnkfcf Other female genital disorders (2 sources)Dysplasia of vagina, unspecified; 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, unspecified]Onset: 72-48-8776GmfrvazsZvfuf gastrointestinal disorders (4 sources)Diarrhea, unspecified; Translations: [DIARRHEA UNSPECIFIED]Onset: 95-02-0639JpohpmhcDfqdk lower respiratory disease (4 sources)Dyspnea, unspecified; Translations: [DYSPNEA UNSPECIFIED]Onset: 67-71-8481AgutnzmpThwtm lower respiratory disease (4 sources)Other forms of dyspnea; Translations: [OTHER FORMS OF DYSPNEA]Onset: 58-68-5974XlagnlwwDklfh screening for suspected conditions (not mental disorders or infectious disease) (8 sources)Other abnormal and inconclusive findings on diagnostic imaging of breast; Translations: [Encounter for screening mammogram for malignant neoplasm of breast]Onset: 44-77-0150YygqmxbgAbeby upper respiratory disease (1 source)Nasal congestion; Translations: [NASAL CONGESTION]Onset: 08-13-2022 EpisodicResidual codes; unclassified (7 sources)Postoperative state; Translations: [Other specified postprocedural states]Onset: 12-13-2021 Resolved: 97-30-2193QruxdvgrNudfiatf codes; unclassified (1 source)Acquired absence of both cervix and uterus; Translations: [ACQUIRED ABSENCE BOTH CERVIX AND UTERUS]Onset: 52-79-7484EzhsnzpjKlwespgq codes; unclassified (1 source)Family history of malignant neoplasm of other organs or systems; Translations: [FAM HX MALIG NEOPLASM OTH ORGN/SYS]Onset: 65-96-4624NzqkztvpOpgb and subcutaneous tissue infections (2 sources)Local infection of the skin and subcutaneous tissue, unspecified; Translations: [Local infection ofthe skin and subcutaneous tissue, unspecified] Onset: 19-43-1152IecyslrcOubtwefibqld (6 sources)Complications due to vascular device, implant, and graft; Translations: [Complications due to vascular device, implant, and graft] Unclassified (6 sources)E coli infection; Translations: [E coli infection]Unclassified (1 source)CONTACT W/AND (SUSP) EXPOS COVID-19; Translations: [CONTACT W/AND (SUSP) EXPOS COVID-19]Onset: 11-16-2022 Results Test NameValueInterpretationReference RangeFacilityOrders Onlyon 07-10-2025 Orders [id number] Harman Mcleod 1940 F Date Provider Department Center 07/10/2025 MARISOL MORIN [facility] Family History Problem Relation Age of Onset Stroke Mother Coronary artery disease Father Heart attack Father Family Status - Relation Status Age at Mother Father Sister DeceasedNormalUniProMedica [facility] HospitalOrders Onlyon 06-12-2025 Orders [id number] Harman Mcleod 1940 F Date Provider Department Center 06/12/2025 BRIAN FLANNERY [facility] Family History Problem Relation Age of Onset Stroke Mother Coronary artery disease Father Heart attack Father Family Status - Relation Status Age at Mother Father Sister DeceasedNormalUniProMedica Toledo HospitalAlanine aminotransferase [Enzymatic activity/volume] in Serum or PlasmaOrdered By: Christiano Mcdonnell on 80-50-9387YNW [Catalytic activity/Vol]13 U/L7-52[facility]. Mary HospitalComment on above:Performed By: #### ESR, CBC, CMP #### [facility] [address] [place] [address] USAAlbumin [Mass/volume] in Serum or Plasma by Bromocresol green (BCG) dye binding methoOrdered By: Christiano Mcdonnell on 77-74-6020Xfxbhsu BCG dye [Mass/Vol]3.5 g/dL3.5-5.7FChildren's Hospital for RehabilitationAlkaline phosphatase [Enzymatic activity/volume] in Serum or PlasmaOrdered By: Christiano Mcdonnell on 45-04-7199UGX [Catalytic activity/Vol]122 U/RTdvz26-235IlhkpzdxiMount St. Mary HospitalComment on above:Performed By: #### ESR, CBC, CMP #### [facility] [address] [place] [id number] USAAspartate aminotransferase [Enzymatic activity/volume] in Serum or PlasmaOrdered By: Christiano Mcdonnell on 37-56-7199WJM [Catalytic activity/Vol]16 U/M24-23Stqrrzdod Regional Medical CenterComment on above: Performed By: #### ESR, CBC, CMP #### [place] [address] USABasophils [#/volume] in Blood by Automated countOrdered By: Christiano Martinrow on 46-85-3826Ojgorjtqt (Bld) [#/Vol]0.1 10*3/uL0.0-0.[address] [facility] HospitalComment on above:Performed By: #### ESR, CBC, CMP #### [place] [address] USABasophils/100 leukocytes in Blood by Automated count Ordered By: Christiano Martinrow on 52-93-0289Cewskpzfv/100 WBC (Bld)0.[address] Mary HospitalComment on above:Performed By: #### ESR, CBC, CMP #### [place] [address] USABilirubin.total [Mass/volume] in Serum or PlasmaOrdered By: Christianoanali Mcdonnell on 01-17-1061Igchwwsit [Mass/Vol]0.3 mg/dL0.3-1.0[facility] Mary HospitalComment on above:Performed By: #### ESR, CBC, CMP #### [place] [address] USACalcium [Mass/volume] in Serum or PlasmaOrdered By: Christiano Mcdonnell on 94-42-2656Wofknjp [Mass/Vol]9.4 mg/dL8.6-10.3FChildren's Hospital for RehabilitationComment on above:Performed By: #### ESR, CBC, CMP #### [place] [address] USACarbon dioxide, total [Moles/volume] in Serum or Plasma Ordered By: Christianoanali Mcdonnell on 78-39-8340CU8 [Moles/Vol]33.6 mmol/LHigh21.0-31.[address] [facility] HospitalComment on above:Performed By: #### ESR, CBC, CMP #### [place] [address] USAChloride [Moles/volume] in Serum or PlasmaOrdered By: Christiano Mcdonnell on 32-60-4505Zfywtnzz [Moles/Vol]98 mmol/H13-539TnqdddxpxMount St. Mary HospitalComment on above:Performed By: #### ESR, CBC, CMP #### [facility] [address] [place] [address] USAComplete Blood Count Auto Diffon 51-00-0151Nyzu Corpuscular HGB Conc33.2 g/qDOamyme09.0-35.0The [facility] Physician GroupComment on above:Performed By: #### ESR, CBC, CMP #### [facility] [address] [place] [address] USANRBC%0.1 /100{WBC}Normal0-0.5The [facility] Physician [facility] Comment on above:Performed By: #### ESR, CBC, CMP #### [place] [address] USAWhite Blood Count7.9 [CFU]/mLNormal3.8-11.6The [facility] Physician [facility] HospitalComment on above:Performed By: #### ESR, CBC, CMP #### [facility] [address] [place] [address] USAComprehensive Metabolic Panelon 15-01-9721Ydxatsi [Mass/Vol]3.5 g/dLNormal3.5-5.7The [facility] Physician [facility] HospitalComment on above: Performed By: #### ESR, CBC, CMP #### [facility] [address] [place] [address] USAGFR/1.73 sq M.predicted MDRD (S/P/Bld) [Vol rate/Area] 38.217 mL/min/{1.73_m2}NormalThe [facility]ly [facility] Physician [facility] HospitalComment on above: Performed By: #### ESR, CBC, CMP #### [place] [address] USACreatinine [Mass/volume] in Serum or PlasmaOrdered By: Christiano Mcdonnell on 32-28-0052Mqndubvqab [Mass/Vol]1.38 mg/dLHigh0.60-1.[address] [facility] HospitalComment on above:Performed By: #### ESR, CBC, CMP #### [place] [address] USAEosinophils [#/volume] in Blood by Automated countOrdered By: Christiano Mcdonnell on 69-41-9375Vxpgifyuhpe (Bld) [#/Vol]0.6 10*3/uLHigh0.0-[address] [facility] HospitalComment on above:Performed By: #### ESR, CBC, CMP #### [facility] [address] [place] [address] USAEosinophils/100 leukocytes in Blood by Automated count Ordered By: Christiano Mcdonnell on 80-58-6401Esaafpgbpcn/100 WBC (Bld)7.[address] [facility] HospitalComment on above:Performed By: #### ESR, CBC, CMP #### [place] [address] USAErythrocyte Sedimentation Rateon 55-65-1210QCW (Bld) [Velocity]61 mm/hHigh0-29The [facility] Physician GroupComment on above:Result Comment: PERFORMED BY: [place] [address] PATHOLOGIST PRODUCT SAFETY TECHNICIAN LIO MIRELES M.D.Performed By: #### ESR, CBC, CMP #### [place] [address] USAErythrocyte distribution width [Ratio] by Automated count Ordered By: Christiano Mcdonnell on 82-40-2822Iojkfmselyr distribution width (RBC) [Ratio]15.4 %High11.9-15.3FChildren's Hospital for RehabilitationComment on above: Performed By: #### ESR, CBC, CMP #### [place] [address] USAErythrocyte sedimentation rate by Photometric method Ordered By: Christiano Mcdonnell on 69-66-3149WTD Photometric method (Bld) [Velocity] 61 mm/hrHigh0-29Mount St. Mary HospitalErythrocytes [#/volume] in Blood by Automated countOrdered By: Christiano Mcdonnell on 39-07-2067YMD (Bld) [#/Vol]3.73 10*6/uL3.60-5.00[facility]. Mary HospitalComment on above: Performed By: #### ESR, CBC, CMP #### [facility] [address] [place] [address] USAGlomerular filtration rate [Volume Rate/Area] in Serum, Plasma or Blood by CreatinineOrdered By: Christiano Martinrow on 20-47-3879Hoefapgall filtration rate [Volume Rate/Area] in Serum, Plasma or Blood by Pteukcicdk52.217 mL/MinMount St. Mary HospitalGlucose [Mass/volume] in Serum or Plasma Ordered By: Christiano Martinrow on 63-90-7677Vkerhct [Mass/Vol]257 mg/zNTnbp49-[address] [facility] HospitalComment on above:ADA recommended reference rangeRandom Glucose [...] rangePerformed By: #### ESR, CBC, CMP #### [place] [id number] USAHematocrit [Volume Fraction] of Blood by Automated count Ordered By: Christiano Kecia on 48-68-4999Xsegbqxjsk (Bld) [Volume fraction]35.7 % 34.0-46.4FChildren's Hospital for RehabilitationComment on above:Performed By: #### ESR, CBC, CMP #### [facility] [address] [place] [address] USAHemoglobin [Mass/volume] in BloodOrdered By: Christianoanali Mcdonnell on 76-28-6871Refsuryhcq (Bld) [Mass/Vol]11.9 g/dL11.8-15.4FChildren's Hospital for RehabilitationComment on above:Performed By: #### ESR, CBC, CMP #### [facility] [address] [place] [id number] USALeukocytes [#/volume] corrected for nucleated erythrocytes in Blood by Automated counOrdered By: Christiano Martinrow on 14-02-6331YKZ corrected for nucl RBC Auto (Bld) [#/Vol]7.9 10*3/uL3.8-11.6FChildren's Hospital for RehabilitationLeukocytes [#/volume] in Blood by Automated countOrdered By: Christiano Kecia on 73-77-9264AYF (Bld) [#/Vol]7.9 10*3/uL3.8-11.6FChildren's Hospital for RehabilitationComment on above:Performed By: #### ESR, CBC, CMP #### [facility] [address] [place] [id number] USALymphocytes [#/volume] in Blood by Automated countOrdered By: Christiano Mcdonnell on 00-36-0492Ndzsaxdpnlu (Bld) [#/Vol]2.3 10*3/uL1.00-4.[address] [facility] HospitalComment on above:Performed By: #### ESR, CBC, CMP #### [facility] [address] [place] [id number] USALymphocytes/100 leukocytes in Blood by Automated count Ordered By: Christiano Mcdonnell on 97-08-7186Nvtuebormyf/100 WBC (Bld)29.[address] [facility] HospitalComment on above:Performed By: #### ESR, CBC, CMP #### [address] [place] [address] [address] [facility] [Entitic mass] by Automated countOrdered By: Christiano Mcdonnell on 43-17-7423QFH (RBC) [Entitic mass]31.8 pg24.7-34.3FChildren's Hospital for RehabilitationComment on above:Performed By: #### ESR, CBC, CMP #### [facility] [address] [place], [place] [id number] [facility] Auto (RBC) [Mass/Vol]Ordered By: Christiano Mcdonnell on 58-30-5161MXXT (RBC) [Mass/Vol]33.2 g/dL32.0-35.0[facility] Mary HospitalMCV [Entitic volume] by Automated countOrdered By: Christiano Mcdonnell on 44-37-4178YYZ (RBC) [Entitic vol]95.9 tB75-530VkizoolmaMount St. Mary Hospital Comment on above:Performed By: #### ESR, CBC, CMP #### [place] [address] USAMonocytes [#/volume] in Blood by Automated countOrdered By: Christiano Mcdonnell on 75-76-7743Wcfrnagxj (Bld) [#/Vol]0.6 10*3/uL0.0-0.[address] [facility] HospitalComment on above:Performed By: #### ESR, CBC, CMP #### [place] [address] USAMonocytes/100 leukocytes in Blood by Automated count Ordered By: Christiano Mcdonnell on 88-01-9813Fpybinhlf/100 WBC (Bld)7.[address] [facility] HospitalComment on above:Performed By: #### ESR, CBC, CMP #### [place] [address] USANeutrophils [#/volume] in Blood by Automated countOrdered By: Christiano Mcdonnell on 62-48-9500Hsbtyhpzfxm (Bld) [#/Vol]4.3 10*3/uL1.8-7.[address] [facility] HospitalComment on above:Performed By: #### ESR, CBC, CMP #### [place] [address] USANeutrophils/100 leukocytes in Blood by Automated count Ordered By: Christiano Mcdonnell on 80-01-0214Njdavvotdwe/100 WBC (Bld)54.[address] [facility] HospitalComment on above:Performed By: #### ESR, CBC, CMP #### [place] [address] USANo Panel InformationOrdered By: Christiano Mcdonnell on 30-68-1150Bxbdxksi Creatinine Clearance (ChemN/[facility] HospitalNucleated erythrocytes [Presence] in Blood by Automated countOrdered By: Christiano Mcdonnell on 60-57-2232Jyyajewht RBC Auto Ql (Bld)0.1 /100{WBC}0-0.[address] [facility] HospitalPlatelet mean volume [Entitic volume] in Blood by Automated countOrdered By: Christiano Martinrow on 35-36-0967Wgjlgsnt mean volume (Bld) [Entitic vol]8.3 fL6.3-10.7FChildren's Hospital for RehabilitationComment on above:Performed By: #### ESR, CBC, CMP #### [place] [address] USAPlatelets [#/volume] in Blood by Automated countOrdered By: Christiano Kecia on 29-53-8278Hnshnzrsb (Bld) [#/Vol]252 10*3/sI559-[address] [facility] HospitalComment on above:Performed By: #### ESR, CBC, CMP #### [place] [address] USAPotassium [Moles/volume] in Serum or PlasmaOrdered By: Christiano Mcdonnell on 64-62-4057Oijsbiijo [Moles/Vol]4.3 mmol/L3.5-5.1FChildren's Hospital for RehabilitationComment on above:Hemolysis is present at a level that could interfere with the result.Contact lab if redraw is requiredResult Comment: Hemolysis is present at a level that could interfere with the result. Contact lab if redraw is requiredPerformed By: #### ESR, CBC, CMP #### [place] [id number] USAProtein [Mass/volume] in Serum or PlasmaOrdered By: Christiano Mcdonnell on 77-78-8877Fvxrrla [Mass/Vol]6.5 g/dL6.4-8.9Mount [facility]. Mary HospitalComment on above:Performed By: #### ESR, CBC, CMP #### [place] [address] USASerum globulin measurement by calculation (mass/volume) Ordered By: Christiano Mcdonnell on 22-60-0248Tsjvabgj (S) [Mass/Vol]3.0 g/dLMount St. Mary HospitalComment on above:Performed By: #### ESR, CBC, CMP #### [place] [id number] USASerum or plasma albumin/globulin mass ratioOrdered By: Christiano Mcdonnell on 34-93-1812Nuievvo/Globulin [Mass ratio]1.2 {ratio}[facility]. Mary HospitalComment on above:Performed By: #### ESR, CBC, CMP #### [place] [address] USASerum or plasma anion gap determinationOrdered By: Christiano Mcdonnell on 22-87-2981Wgwls gap [Moles/Vol]11.7 mmol/L6.0-15.0[facility]. Mary HospitalComment on above:Performed By: #### ESR, CBC, CMP #### [place] [address] USASodium [Moles/volume] in Serum or PlasmaOrdered By: Christiano Martinrow on 21-07-6107Qadsrq [Moles/Vol]139 mmol/S667-871YcaucoqrnMount St. Mary HospitalComment on above:Performed By: #### ESR, CBC, CMP #### [place] [address] USAUrate [Mass/volume] in Serum or PlasmaOrdered By: Christiano Martinrow on 12-57-2037Vrmre [Mass/Vol]3.1 mg/dL2.3-6.6FChildren's Hospital for RehabilitationComment on above:Result Comment: PERFORMED BY: [place] [address] PATHOLOGIST PRODUCT SAFETY TECHNICIAN LIO MIRELES M.D.Performed By: #### ESR, CBC, CMP #### [place] [address] USAUrea nitrogen [Mass/volume] in Serum or PlasmaOrdered By: Christiano Martinrow on 37-21-0445Jnlu nitrogen [Mass/Vol]23 mg/dL7-25Mount St. Mary HospitalComment on above:Performed By: #### ESR, CBC, CMP #### [place] [address] USAComplete Blood Count Auto Diffon 25-39-8480Frmcbcajq (Bld) [#/Vol]0.0 10*3/uLNormal0.0-0.2The Formerly [facility] Physician GroupComment on above: Performed By: #### ESR, CBC, CMP #### [place] [address] USABasophils/100 WBC (Bld)0.4 %Normal.The Formerly [facility] Hospital Physician GroupComment on above:Performed By: #### ESR, CBC, CMP #### [place] [address] USAEosinophils (Bld) [#/Vol]0.1 10*3/uLNormal0.0-0.45The Formerly [facility] Hospital Physician GroupComment on above:Performed By: #### ESR, CBC, CMP #### [place] [address] USAEosinophils/100 WBC (Bld)1.3 %Normal.The Formerly [facility] Hospital Physician GroupComment on above:Performed By: #### ESR, CBC, CMP #### [place] [address] USAErythrocyte distribution width (RBC) [Ratio]14.0 %Normal 11.9-15.3The Formerly [facility] Hospital Physician GroupComment on above:Performed By: #### ESR, CBC, CMP #### [place] [address] USAHematocrit (Bld) [Volume fraction]33.9 %Low34.0-46.4The Formerly [facility] Hospital Physician GroupComment on above:Performed By: #### ESR, CBC, CMP #### [place] [address] USAHemoglobin (Bld) [Mass/Vol]11.2 g/dLLow11.8-15.4The Formerly [facility] Physician GroupComment on above:Performed By: #### ESR, CBC, CMP #### [place] [address] USALymphocytes (Bld) [#/Vol]2.2 10*3/uLNormal1.00-4.8The Formerly [facility] Hospital Physician GroupComment on above:Performed By: #### ESR, CBC, CMP #### [place] [address] USALymphocytes/100 WBC (Bld)21.1 %Normal.The Formerly [facility] Hospital Physician GroupComment on above:Performed By: #### ESR, CBC, CMP #### [address] (RBC) [Entitic mass]30.9 nwEhnbwh67.7-34.3The Formerly [facility] Physician GroupComment on above:Performed By: #### ESR, CBC, CMP #### [place] [address] USAV (RBC) [Entitic vol]93.3 nRSvdsrs17-932Ytc Former[facility] Physician GroupComment on above:Performed By: #### ESR, CBC, CMP #### [place] [address] USAMean Corpuscular HGB Conc33.1 g/hGKzkgaw38.0-35.0The Formerly [facility] Physician GroupComment on above:Performed By: #### ESR, CBC, CMP #### [place] [address] USAMonocytes (Bld) [#/Vol]1.3 10*3/uLHigh0.0-0.8The Formerly [facility] Physician GroupComment on above:Performed By: #### ESR, CBC, CMP #### [place] [address] USAMonocytes/100 WBC (Bld)12.5 %Normal.The Formerly [facility] Physician GroupComment on above:Performed By: #### ESR, CBC, CMP #### [place] [address] USANeutrophils (Bld) [#/Vol]6.7 10*3/uLNormal1.8-7.7The Formerly [facility] Physician GroupComment on above:Performed By: #### ESR, CBC, CMP #### [place] [address] USANeutrophils/100 WBC (Bld)64.7 %Normal.The Formerly [facility] Physician GroupComment on above:Performed By: #### ESR, CBC, CMP #### [facility] [address] [place] [address] USANRBC%0.1 /100{WBC}Normal0-0.5The Former[facility] Comment on above:Performed By: #### ESR, CBC, CMP #### [place] [address] USAPlatelet mean volume (Bld) [Entitic vol]8.7 fLNormal 6.3-10.7The Formerly [facility] Physician GroupComment on above:Performed By: #### ESR, CBC, CMP #### [place] [address] USAPlatelets (Bld) [#/Vol]280 10*3/wGVboumw252-269Eqb Former[facility] Physician GroupComment on above:Performed By: #### ESR, CBC, CMP #### [place] [address] USARBC (Bld) [#/Vol]3.63 10*6/uLNormal3.60-5.00The Formerly [facility] Physician GroupComment on above:Performed By: #### ESR, CBC, CMP #### [place] [address] USAWBC (Bld) [#/Vol]10.4 10*3/uLNormal3.8-11.6The Formerly [facility] Physician GroupComment on above:Performed By: #### ESR, CBC, CMP #### [place] [address] USAWhite Blood Count10.4 [CFU]/mLNormal3.8-11.6The Formerly [facility] Physician GroupComment on above:Performed By: #### ESR, CBC, CMP #### [place] [address] USAComprehensive Metabolic Panelon 41-00-8270Azmyqly [Mass/Vol]4.0 g/dLNormal3.5-5.7The Formerly [facility] Physician GroupComment on above: Performed By: #### ESR, CBC, CMP #### [place] [address] USAAlbumin/Globulin [Mass ratio]1.5 {ratio}NormalThe Formerly [facility] Hospital Physician GroupComment on above:Performed By: #### ESR, CBC, CMP #### [place] [address] USAALP [Catalytic activity/Vol]97 U/MCtiloi33-028Ebx Formerly [facility] Physician GroupComment on above:Result Comment: PERFORMED BY: [place] [address] PATHOLOGIST PRODUCT SAFETY TECHNICIAN LIO MIRELES M.D.Performed By: #### ESR, CBC, CMP #### [place] [address] USAALT [Catalytic activity/Vol]8 U/LNormal7-52The Formerly [facility] Physician GroupComment on above:Performed By: #### ESR, CBC, CMP #### [place] [address] USAAnion gap [Moles/Vol]20.9 mmol/LHigh6.0-15.0The Formerly [facility] Physician GroupComment on above:Performed By: #### ESR, CBC, CMP #### [place] [address] USAAST [Catalytic activity/Vol]13 U/HJmdmsd59-14Xji Former[facility] Physician GroupComment on above:Performed By: #### ESR, CBC, CMP #### [place] [address] USABilirubin [Mass/Vol]0.5 mg/dLNormal0.3-1.0The Formerly [facility] Physician GroupComment on above:Performed By: #### ESR, CBC, CMP #### [place] [address] USACalcium [Mass/Vol]9.5 mg/dLNormal8.6-10.3The Formerly [facility] Physician GroupComment on above:Performed By: #### ESR, CBC, CMP #### [address] [place] [address] USAChloride [Moles/Vol]98 mmol/GEypjsp33-202Pjy Former[facility] Physician GroupComment on above:Performed By: #### ESR, CBC, CMP #### [facility] [address] [place] [address] USACO2 [Moles/Vol]26.3 mmol/VGtiuki74.0-31.0The Formerly [facility] Physician GroupComment on above:Performed By: #### ESR, CBC, CMP #### [facility] [address] [place] [address] USACreatinine [Mass/Vol]1.56 mg/dLHigh0.60-1.20The Formerly [facility] Physician GroupComment on above:Performed By: #### ESR, CBC, CMP #### [facility] [address] [place] [address] USAGFR/1.73 sq M.predicted MDRD (S/P/Bld) [Vol rate/Area] 32.988 mL/min/{1.73_m2}NormalThe Formerly [facility] Physician GroupComment on above: Performed By: #### ESR, CBC, CMP #### [facility] [address] [place] [address] USAGlobulin (S) [Mass/Vol]2.7 g/dLNormalThe Formerly [facility] Physician GroupComment on above:Performed By: #### ESR, CBC, CMP #### [facility] [address] [place] [address] USAGlucose [Mass/Vol]96 mg/cQCeceud29-544Dpu Formerly [facility] Physician GroupComment on above:Result Comment: Random Glucose Reference Range is dependent on time and content of last meal. Glucose of more than 200 mg/dL in a nonstressed, ambulatory subject supports the diagnosis of Diabetes Mellitus. ADA recommended reference rangePerformed By: #### ESR, CBC, CMP #### [facility] [address] [place] [address] USAPotassium [Moles/Vol]3.2 mmol/LLow3.5-5.1The Formerly [facility] Physician GroupComment on above:Performed By: #### ESR, CBC, CMP #### [facility] [address] [place] [address] USAProtein [Mass/Vol]6.7 g/dLNormal6.4-8.9The Formerly [facility] Physician GroupComment on above:Performed By: #### ESR, CBC, CMP #### [facility] [address] [place] [address] USASodium [Moles/Vol]142 mmol/PEfizql889-019Yky Formerly [facility] Physician GroupComment on above:Performed By: #### ESR, CBC, CMP #### [facility] [address] [place] [address] USAUrea nitrogen [Mass/Vol]35 mg/dLHigh7-e Former[facility] Physician GroupComment on above:Performed By: #### ESR, CBC, CMP #### [facility] [address] [place] [address] USAErythrocyte Sedimentation Rateon 68-23-6522VLH (Bld) [Velocity]63 mm/hHigh0-29The Formerly [facility] Physician GroupComment on above:Result Comment: PERFORMED BY: [place] [address] PATHOLOGIST PRODUCT SAFETY TECHNICIAN LIO MIRELES M.D.Performed By: #### ESR, CBC, CMP #### [place] [address] USAOffice Visiton [phone]-up [id number] Harman Mcleod 1940 F Date Provider Department Center 01/21/2025 BRIAN FLANNERY [facility] Family History Problem Relation Age of Onset Stroke Mother Coronary artery disease Father Heart attack Father Family Status - Relation Status Age at Mother Father Sister Level of Service:16247 [place] OFFICE/OUTPATIENT ESTABLISHED LOW [facility] CenterAl[facility] aminotransferase [Enzymatic activity/volume] in Serum or PlasmaOrdered By: Christiano Mcdonnell on 41-86-7450JGW [Catalytic activity/Vol]Alanine aminotransferase [Enzymatic activity/volume] in Serum or PlasmaMount St. Mary HospitalAlbumin [Mass/volume] in Serum or Plasma by Bromocresol green (BCG) dye binding methoOrdered By: Christiano Mcdonnell on 64-42-3041Nollzln BCG dye [Mass/Vol]Albumin [Mass/volume] in Serum or Plasma by Bromocresol green (BCG) dye binding metho3.5-5.7FChildren's Hospital for RehabilitationAlkaline phosphatase [Enzymatic activity/volume] in Serum or PlasmaOrdered By: Christiano Mcdonnell on 72-01-2929BFS [Catalytic activity/Vol] Alkaline phosphatase [Enzymatic activity/volume] in Serum or Mromza50-[address] Mary HospitalAspartate aminotransferase [Enzymatic activity/volume] in Serum or PlasmaOrdered By: Christiano Mcdonnell on 18-23-4046DHJ [Catalytic activity/Vol]Aspartate aminotransferase [Enzymatic activity/volume] in Serum or Ddsqon79-23QbgowgomlMount St. Mary HospitalBasophils Auto (Bld) [#/Vol]Ordered By: Christiano Mcdonnell on 40-07-8821Uhwnixnin (Bld) [#/Vol]Automated basophil count0.0-0.2FChildren's Hospital for RehabilitationBasophils/100 WBC Auto (Bld)Ordered By: Christiano Mcdonnell on 94-85-9888Qzphculak/100 WBC (Bld)Automated basophil %.Mount St. Mary HospitalBilirubin.total [Mass/volume] in Serum or PlasmaOrdered By: Christiano Mcdonnell on 55-97-1875Fbnltcgex [Mass/Vol] Bilirubin.total [Mass/volume] in Serum or Plasma0.3-1.0[facility]. Mary HospitalCalcium [Mass/volume] in Serum or PlasmaOrdered By: Christiano Mcdonnell 58-40-6325Ptzamto [Mass/Vol]Calcium [Mass/volume] in Serum or PlasmaHigh 8.6-10.3FChildren's Hospital for RehabilitationCarbon dioxide, total [Moles/volume] in Serum or PlasmaOrdered By: Christiano Mcdonnell 46-68-8659BQ8 [Moles/Vol]Carbon dioxide, total [Moles/volume] in Serum or BjjtpoKydi87.0-31.0[facility] Mary HospitalChloride [Moles/volume] in Serum or PlasmaOrdered By: Christiano Mcdonnell 30-79-8158Oofkrjyu [Moles/Vol]Chloride [Moles/volume] in Serum or Stjinr22-279DtwuksgcoMount St. Mary HospitalComplete Blood Count Auto Diffon 00-27-7046Szhencgyw (Bld) [#/Vol]0.0 10*3/uLNormal0.0-0.2The Formerly [facility] Physician GroupComment on above:Performed By: #### ESR, CBC, CMP #### [facility] [address] [place] [address] USABasophils/100 WBC (Bld)0.4 %Normal.The Formerly [facility] Hospital Physician GroupComment on above:Performed By: #### ESR, CBC, CMP #### [place] [address] USAEosinophils (Bld) [#/Vol]0.1 10*3/uLNormal0.0-0.45The Formerly [facility] Hospital Physician GroupComment on above:Performed By: #### ESR, CBC, CMP #### [place] [address] USAEosinophils/100 WBC (Bld)1.1 %Normal.The Formerly [facility] Hospital Physician GroupComment on above:Performed By: #### ESR, CBC, CMP #### [place] [address] USAErythrocyte distribution width (RBC) [Ratio]14.9 %Normal 11.9-15.3The Formerly [facility] Hospital Physician GroupComment on above:Performed By: #### ESR, CBC, CMP #### [place] [address] USAHematocrit (Bld) [Volume fraction]37.5 %Yurmzy07.0-46.4The Formerly [facility] Hospital Physician GroupComment on above:Performed By: #### ESR, CBC, CMP #### [place] [address] USAHemoglobin (Bld) [Mass/Vol]12.3 g/nAPwbjbi30.8-15.4The Formerly [facility] Physician GroupComment on above:Performed By: #### ESR, CBC, CMP #### [place] [address] USALymphocytes (Bld) [#/Vol]1.5 10*3/uLNormal1.00-4.8The Formerly [facility] Physician GroupComment on above:Performed By: #### ESR, CBC, CMP #### [place] [address] USALymphocytes/100 WBC (Bld)13.7 %Normal.The Formerly [facility] Hospital Physician GroupComment on above:Performed By: #### ESR, CBC, CMP #### [address] (RBC) [Entitic mass]30.7 zyFnydci28.7-34.3The Formerly [facility] Hospital Physician GroupComment on above:Performed By: #### ESR, CBC, CMP #### [place] [address] USAV (RBC) [Entitic vol]93.2 aYHzuglm16-918Plk Former[facility] Physician GroupComment on above:Performed By: #### ESR, CBC, CMP #### [place] [address] USAMean Corpuscular HGB Conc32.9 g/xLTtdfra26.0-35.0The Formerly [facility] Physician GroupComment on above:Performed By: #### ESR, CBC, CMP #### [place] [address] USAMonocytes (Bld) [#/Vol]0.7 10*3/uLNormal0.0-0.8The Formerly [facility] Physician GroupComment on above:Performed By: #### ESR, CBC, CMP #### [place] [address] USAMonocytes/100 WBC (Bld)6.1 %Normal.The Formerly [facility] Physician GroupComment on above:Performed By: #### ESR, CBC, CMP #### [place] [address] USANeutrophils (Bld) [#/Vol]8.5 10*3/uLHigh1.8-7.7The Formerly [facility] Physician GroupComment on above:Performed By: #### ESR, CBC, CMP #### [facility] [address] [place] [address] USANeutrophils/100 WBC (Bld)78.7 %Normal.The Formerly [facility] Hospital Physician GroupComment on above:Performed By: #### ESR, CBC, CMP #### [place] [address] USANRBC%0.1 /100{WBC}Normal0-0.5The [facility] Comment on above:Performed By: #### ESR, CBC, CMP #### [place] [address] USAPlatelet mean volume (Bld) [Entitic vol]8.2 fLNormal 6.3-10.7The Formerly [facility] Physician GroupComment on above:Performed By: #### ESR, CBC, CMP #### [place] [address] USAPlatelets (Bld) [#/Vol]238 10*3/dBBmsjct264-103Cnx Formerly [facility] Physician GroupComment on above:Performed By: #### ESR, CBC, CMP #### [place] [address] USARBC (Bld) [#/Vol]4.02 10*6/uLNormal3.60-5.00The Formerly [facility] Physician GroupComment on above:Performed By: #### ESR, CBC, CMP #### [place] [address] USAWBC (Bld) [#/Vol]10.9 10*3/uLNormal3.8-11.6The Formerly [facility] Physician GroupComment on above:Performed By: #### ESR, CBC, CMP #### [place] [address] USAComprehensive Metabolic Panelon 55-43-2071Mmjphzg [Mass/Vol]4.4 g/dLNormal3.5-5.7The Formerly [facility] Physician GroupComment on above: Performed By: #### ESR, CBC, CMP #### [place] [id number] USAAlbumin/Globulin [Mass ratio]1.7 {ratio}NormalThe Formerly [facility] Physician GroupComment on above:Performed By: #### ESR, CBC, CMP #### [place] [address] USAALP [Catalytic activity/Vol]92 U/JDhfuzz09-523Ehj Formerly [facility] Physician GroupComment on above:Result Comment: PERFORMED BY: [place] [address] PATHOLOGIST PRODUCT SAFETY TECHNICIAN BERNARDA GARCIA M.D.Performed By: #### ESR, CBC, CMP #### [place] [address] USAALT [Catalytic activity/Vol]17 U/LNormal7-52The Formerly [facility] Physician GroupComment on above:Performed By: #### ESR, CBC, CMP #### [place] [address] USAAnion gap [Moles/Vol]13.1 mmol/LNormal6.0-15.0The Formerly [facility] Physician GroupComment on above:Performed By: #### ESR, CBC, CMP #### [place] [address] USAAST [Catalytic activity/Vol]17 U/XFsssqf16-48Djn Former[facility] Physician GroupComment on above:Performed By: #### ESR, CBC, CMP #### [place] [address] USABilirubin [Mass/Vol]0.5 mg/dLNormal0.3-1.0The Formerly [facility] Physician GroupComment on above:Performed By: #### ESR, CBC, CMP #### [place] [address] USACalcium [Mass/Vol]10.4 mg/dLHigh8.6-10.3The Formerly [facility] Physician GroupComment on above:Performed By: #### ESR, CBC, CMP #### [place] [address] USAChloride [Moles/Vol]98 mmol/JNsguvw15-544Kop Former[facility] Physician GroupComment on above:Performed By: #### ESR, CBC, CMP #### [facility] [address] [place] [address] USACO2 [Moles/Vol]34.6 mmol/LHigh21.0-31.0The Formerly [facility] Physician GroupComment on above:Performed By: #### ESR, CBC, CMP #### [facility] [address] [place] [address] USACreatinine [Mass/Vol]1.46 mg/dLHigh0.60-1.20The Formerly [facility] Physician GroupComment on above:Performed By: #### ESR, CBC, CMP #### [facility] [address] [place] [address] USAEstimated GFR35.718 mL/MinNormalThe Formerly [facility] Physician [facility] HospitalComment on above:Performed By: #### ESR, CBC, CMP #### [facility] [address] [place] [address] USAGlobulin (S) [Mass/Vol]2.6 g/dLNormalThe Formerly [facility] Physician GroupComment on above:Performed By: #### ESR, CBC, CMP #### [facility] [address] [place] [address] USAGlucose [Mass/Vol]142 mg/sDTrqh00-294Uvr Former[facility] Physician GroupComment on above:Result Comment: Random Glucose Reference Range is dependent on time and content of last meal. Glucose of more than 200 mg/dL in a nonstressed, ambulatory subject supports the diagnosis of Diabetes Mellitus. ADA recommended reference rangePerformed By: #### ESR, CBC, CMP #### [facility] [address] [place] [address] USAPotassium [Moles/Vol]3.7 mmol/LNormal3.5-5.1The Formerly [facility] Physician GroupComment on above:Performed By: #### ESR, CBC, CMP #### [facility] [address] [place] [address] USAProtein [Mass/Vol]7.0 g/dLNormal6.4-8.9The Formerly [facility] Physician GroupComment on above:Performed By: #### ESR, CBC, CMP #### [facility] [address] [place] [address] USASodium [Moles/Vol]142 mmol/BMzdgok470-818Nwr Formerly [facility] Physician GroupComment on above:Performed By: #### ESR, CBC, CMP #### [facility] [address] [place] [address] USAUrea nitrogen [Mass/Vol]43 mg/dLHigh7-25The Formerly [facility] Physician GroupComment on above:Performed By: #### ESR, CBC, CMP #### [facility] [address] [place] [address] USACreatinine [Mass/volume] in Serum or PlasmaOrdered By: Christiano Mcdonnell on 80-80-3626Ofzejzhgrj [Mass/Vol]Creatinine [Mass/volume] in Serum or PlasmaHigh0.60-1.20[facility]. Mary HospitalEosinophils Auto (Bld) [#/Vol]Ordered By: Christiano Mcdonnell on 28-69-8795Jdtrsvvzhpk (Bld) [#/Vol] Automated eosinophil count0.0-0.45[facility] Eosinophils/100 WBC Auto (Bld)Ordered By: Christiano Mcdonnell on 01-07-2025 Eosinophils/100 WBC (Bld)Automated eosinophil %.[facility] Mary HospitalErythrocyte Sedimentation Rateon 47-41-1948VZF (Bld) [Velocity]37 mm/hHigh 0-29The Formerly [facility] Physician GroupComment on above:Result Comment: PERFORMED BY: [place] [address] PATHOLOGIST PRODUCT SAFETY TECHNICIAN BERNARDA GARCIA M.D.Performed By: #### ESR, CBC, CMP #### [facility] [address] [place] [address] USAErythrocyte distribution width Auto (RBC) [Ratio]Ordered By: Christiano Mcdonnell on 56-75-5098Wpiyybwqpcd distribution width (RBC) [Ratio] Erythrocyte distribution width [Ratio] by Automated count11.9-15.3FChildren's Hospital for RehabilitationErythrocyte sedimentation rate by Photometric method Ordered By: Christiano Mcdonnell on 63-79-9798INI Photometric method (Bld) [Velocity] Erythrocyte sedimentation rate by Photometric methodHigh0-29Mount St. Mary HospitalGlobulin Calc (S) [Mass/Vol]Ordered By: Christiano Mcdonnell on 17-39-0502Sacfiobz (S) [Mass/Vol]Serum globulin measurement by calculation (mass/volume)[facility]. Mary HospitalGlucose [Mass/volume] in Serum or PlasmaOrdered By: Christiano Mcdonnell on 04-34-3698Jrlrfyq [Mass/Vol]Glucose [Mass/volume] in Serum or JrhufnEkgv47-020ZndfvgmwcMount St. Mary Hospital Comment on above:ADA recommended reference rangeRandom Glucose Reference Range is dependent on time and content of last meal. Glucose of more than 200 mg/dL in a nonstressed, ambulatory subject supports the diagnosisof Diabetes Mellitus. Hematocrit Auto (Bld) [Volume fraction]Ordered By: Christiano Mcdonnell on 01-07-2025 Hematocrit (Bld) [Volume fraction]Hematocrit [Volume Fraction] of Blood by Automated count34.0-46.4FChildren's Hospital for RehabilitationHemoglobin [Mass/volume] in BloodOrdered By: Christiano Mcdonnell on 12-08-0000Wrmroiofsa (Bld) [Mass/Vol]Hemoglobin [Mass/volume] in Blood11.8-15.4FChildren's Hospital for RehabilitationLeukocytes [#/volume] corrected for nucleated erythrocytes in Blood by Automated counOrdered By: Christiano Mcdonnell on 78-91-3543DGQ corrected for nucl RBC Auto (Bld) [#/Vol]Leukocytes [#/volume] corrected for nucleated erythrocytes in Blood by Automated coun3.8-11.6FChildren's Hospital for RehabilitationLymphocytes Auto (Bld) [#/Vol]Ordered By: Christiano Mcdonnell on 23-38-1451Romsxrcrlff (Bld) [#/Vol]Lymphocytes [#/volume] in Blood by Automated count1.00-4.8[facility]. Mary HospitalLymphocytes/100 WBC Auto (Bld)Ordered By: Christiano Mcdonnell on 92-19-2749Fkveinchjni/100 WBC (Bld)Lymphocytes/100 leukocytes in Blood by Automated count.[facility]. Mary HospitalMCH Auto (RBC) [Entitic mass] Ordered By: Christiano Mcdonnell on 92-82-3422IFH (RBC) [Entitic mass]MCH [Entitic mass] by Automated count24.7-34.3FChildren's Hospital for RehabilitationMCHC Auto (RBC) [Mass/Vol]Ordered By: Christiano Mcdonnell on 67-42-9588ZDMV (RBC) [Mass/Vol] MCHC [Mass/volume] by Automated count32.0-35.0[facility] MCV Auto (RBC) [Entitic vol]Ordered By: Christiano Mcdonnell on 42-49-6370SPC (RBC) [Entitic vol]MCV [Entitic volume] by Automated atqmv09-115BrpfrdbrsMount St. Mary HospitalMonocytes Auto (Bld) [#/Vol]Ordered By: Christiano Mcdonnell on 46-96-0978Mwsktafsl (Bld) [#/Vol]Automated blood monocyte count0.0-0.8Mount [facility] HospitalMonocytes/100 WBC Auto (Bld)Ordered By: Christiano Mcdonnell on 15-06-3739Aquedqrrw/100 WBC (Bld)Automated monocyte %.[facility] Mary HospitalNeutrophils Auto (Bld) [#/Vol]Ordered By: Christiano Mcdonnell on 07-18-7270Egwpnqvazhx (Bld) [#/Vol]Neutrophils [#/volume] in Blood by Automated countHigh1.8-7.7FChildren's Hospital for RehabilitationNeutrophils/100 WBC Auto (Bld) Ordered By: Christiano Mcdonnell on 61-10-3286Ompztflgeem/100 WBC (Bld)Automated neutrophil %.[facility] HospitalNo Panel InformationOrdered By: Christiano Mcdonnell on 66-31-9946Blrbjvquf GFR (CKD-EPI)35.718 mL/MinMount St. Mary HospitalPharmacy Creatinine Clearance (ChemN/AFChildren's Hospital for RehabilitationNucleated erythrocytes [Presence] in Blood by Automated count Ordered By: Christiano Mcdonnell on 05-94-5965Fimrnkmyy RBC Auto Ql (Bld)Nucleated erythrocytes [Presence] in Blood by Automated count0-0.5FChildren's Hospital for RehabilitationPlatelet mean volume Auto (Bld) [Entitic vol]Ordered By: Christiano Mcdonnell on 22-83-5107Kagagysf mean volume (Bld) [Entitic vol]Platelet mean volume [Entitic volume] in Blood by Automated count6.3-10.7FChildren's Hospital for RehabilitationPlatelets Auto (Bld) [#/Vol]Ordered By: Christiano Mcdonnell on 01-07-2025 Platelets (Bld) [#/Vol]Platelets [#/volume] in Blood by Automated eowfz070-[address] [facility] HospitalPotassium [Moles/volume] in Serum or Plasma Ordered By: Christiano Mcdonnell on 60-65-2790Qmpfwrqda [Moles/Vol]Potassium [Moles/volume] in Serum or Plasma3.5-5.1FChildren's Hospital for RehabilitationProtein [Mass/volume] in Serum or PlasmaOrdered By: Christiano Mcdonnell on 23-50-0084Tuydvco [Mass/Vol]Protein [Mass/volume] in Serum or Plasma6.4-8.9[facility] HospitalRBC Auto (Bld) [#/Vol]Ordered By: Christiano Mcdonnell on 06-92-0199PII (Bld) [#/Vol]Erythrocytes [#/volume] in Blood by Automated count3.60-5.00 [facility] Hospitalerum or plasma albumin/globulin mass ratio Ordered By: Christiano Mcdonnell on 96-05-3224Fubmtjc/Globulin [Mass ratio]Serum or plasma albumin/globulin mass ratioProMedica Flower Hospitalerum or plasma anion gap determinationOrdered By: Christiano Mcdonnell on 27-41-1057Fwqxs gap [Moles/Vol]Serum or plasma anion gap determination6.0-15.0[facility] Flower Hospitalodium [Moles/volume] in Serum or PlasmaOrdered By: Christiano Mcdonnell on 70-69-8986Cpcuwa [Moles/Vol]Sodium [Moles/volume] in Serum or Kbwbye754-[address] [facility] HospitalUrea nitrogen [Mass/volume] in Serum or Plasma Ordered By: Christiano Mcdonnell on 90-27-7846Uawv nitrogen [Mass/Vol]Urea nitrogen [Mass/volume] in Serum or PlasmaHigh7-25Mount [facility] Mary HospitalWBC Auto (Bld) [#/Vol]Ordered By: Christiano Mcdonnell on 73-50-8272QGI (Bld) [#/Vol] Leukocytes [#/volume] in Blood by Automated count3.8-11.6FChildren's Hospital for RehabilitationX-ray reportOrdered By: Butch Quinones on 26-05-3163Zkttz report [facility] [address] [place] [address] XRay Report Signed Patient: Harman Mcleod MR#: [id number] : 1940 Acct:[id number] Age/Sex: 84 / F ADM Date: 5 Loc: ICXD Room: Type: REG CLI Attending Dr: Christiano Mcdonnell MD Copies to: Christiano Mcdonnell MD~ Ordering Provider: Christiano Mcdonnell MD Date of Service: 01/07/25 XR/XR knee BI 2V: KNEE PAIN ([id number]) XR/XR hip BI w PEL1V: HIP PAIN ([id number]) XR/XR lumbar spine 2-3V*: LOW BACK PAIN LUMBAR SPINE - 2 views, bilateral hip series 2 views each, bilateral knee ctnhgt4dtqyx each CLINICAL HISTORY: Severe bilateral knee hip [...] Jr., D.O. 01/07/2025 4:46 PM Dictation Location: [place] [address] Transcribed By: [facility] 01/07/25 164 Dictated By: Butch Quinones Jr, DO 01/07/25 1644 Signed By: 01/07/[address] Mary HospitalXR knee BI 2Von 64-29-9831WG knee BI 2V [facility] [address] [place] [address] XRay Report Signed Patient: Harman Mcleod MR#: [id number] : 1940 Acct:[id number] Age/Sex: 84 / F ADM Date: 01/07/25 Loc: ICXD Room: Type: [facility] CLI Attending Dr: Christiano Mcdonnell MD Copies to: Christiano Mcdonnell MD Ordering Provider: Christiano Mcdonnell MD Date of Service: 01/07/25 XR/XR knee BI 2V: KNEE PAIN ([id number]) XR/XR hip BI w PEL1V: HIP PAIN ([id number]) XR/XR lumbar spine 2-3V*: LOW BACK PAIN [...] Jr., D.OMedardo 01/07/2025 4:46 PM Dictation Location: [place] [address] Transcribed By: [facility] 01/07/251645 Dictated By: Butch Quinones Jr, DO 01/07/25 164 Signed By: 01/07/[address] [facility] Physician GroupAlanine aminotransferase [Enzymatic activity/volume] in Serum or PlasmaOrdered By: Christiano Mcdonnell on 54-46-1698GNR [Catalytic activity/Vol]Alanine aminotransferase [Enzymatic activity/volume] in Serum or Plasma7-52[facility] Mary HospitalAlbumin [Mass/volume] in Serum or Plasma by Bromocresol green (BCG) dye binding metho Ordered By: Christiano Mcdonnell on 56-80-6689Glrrqjw BCG dye [Mass/Vol]Albumin [Mass/volume] in Serum or Plasma by Bromocresol green (BCG) dye binding metho 3.5-5.7FChildren's Hospital for RehabilitationAlkaline phosphatase [Enzymatic activity/volume] in Serum or PlasmaOrdered By: Christiano Mcdonnell on 90-86-5037REU [Catalytic activity/Vol]Alkaline phosphatase [Enzymatic activity/volume] in Serum or Lxmtcw44-477PjzrgadfqMount St. Mary HospitalAspartate aminotransferase [Enzymatic activity/volume] in Serum or PlasmaOrdered By: Christiano Mcdonnell on 46-09-6372EEM [Catalytic activity/Vol]Aspartate aminotransferase [Enzymatic activity/volume] in Serum or Nbskgp70-74YmuhgkrqwMount St. Mary Hospital Basophils Auto (Bld) [#/Vol]Ordered By: Christiano Mcdonnell on 49-58-1247Zebswoezp (Bld) [#/Vol]Automated basophil count0.0-0.2FChildren's Hospital for Rehabilitation Basophils/100 WBC Auto (Bld)Ordered By: Chirstiano Mcdonnell on 12-10-2024 Basophils/100 WBC (Bld)Automated basophil %.[facility] Bilirubin.total [Mass/volume] in Serum or PlasmaOrdered By: Christiano Mcdonnell on 55-05-5994Wknpxcbhc [Mass/Vol]Bilirubin.total [Mass/volume] in Serum or Plasma 0.3-1.0[facility] HospitalCalcium [Mass/volume] in Serum or Plasma Ordered By: Christiano Mcdonnell on 94-75-8130Oalfqxg [Mass/Vol]Calcium [Mass/volume] in Serum or Plasma8.6-10.3FChildren's Hospital for RehabilitationCarbon dioxide, total [Moles/volume] in Serum or PlasmaOrdered By: Christiano Mcdonnell on 88-24-4329ST6 [Moles/Vol]Carbon dioxide, total [Moles/volume] in Serum or KvqrskDfkh45.0-31.[address] [facility] HospitalChloride [Moles/volume] in Serum or Plasma Ordered By: Christiano Mcdonnell on 63-00-6085Nqjbbibi [Moles/Vol]Chloride [Moles/volume] in Serum or Cxtxoq32-794Ngxhd[address] [place], [place] [address]Complete Blood Count Auto Diffon 67-08-9516Nxfloocjm (Bld) [#/Vol]0.0 10*3/uLNormal 0.0-0.2The Former[facility] Physician GroupComment on above:Performed By: #### ESR, CBC, CMP #### [facility] [address] [place] [address] USABasophils/100 WBC (Bld)0.4 %Normal.The Former[facility] Physician GroupComment on above:Performed By: #### ESR, CBC, CMP #### [place] [address] USAEosinophils (Bld) [#/Vol]0.3 10*3/uLNormal0.0-0.45The Formerly [facility] Physician GroupComment on above:Performed By: #### ESR, CBC, CMP #### [facility] [address] [place] [address] USAEosinophils/100 WBC (Bld)3.2 %Normal.The Former[facility] Physician GroupComment on above:Performed By: #### ESR, CBC, CMP #### [place] [address] USAErythrocyte distribution width (RBC) [Ratio]14.9 %Normal 11.9-15.3The Formerly [facility] Physician GroupComment on above:Performed By: #### ESR, CBC, CMP #### [facility] [address] [place] [address] USAHematocrit (Bld) [Volume fraction]31.9 %Low34.0-46.4The Formerly [facility] Physician GroupComment on above:Performed By: #### ESR, CBC, CMP #### [place] [address] USAHemoglobin (Bld) [Mass/Vol]10.7 g/dLLow11.8-15.4The Formerly [facility] Physician GroupComment on above:Performed By: #### ESR, CBC, CMP #### [place] [address] USALymphocytes (Bld) [#/Vol]2.7 10*3/uLNormal1.00-4.8The Formerly [facility] Physician GroupComment on above:Performed By: #### ESR, CBC, CMP #### [place] [address] USALymphocytes/100 WBC (Bld)32.6 %Normal.The [facility] Physician GroupComment on above:Performed By: #### ESR, CBC, CMP #### [place] [address] USAMCH (RBC) [Entitic mass]30.9 lfEgtcex97.7-34.3The Formerly [facility] Physician GroupComment on above:Performed By: #### ESR, CBC, CMP #### [place] [address] USAMCV (RBC) [Entitic vol]92.4 lFVoqxou88-785Mnc Former[facility] Physician GroupComment on above:Performed By: #### ESR, CBC, CMP #### [place] [address] USAMean Corpuscular HGB Conc33.5 g/eDMrzqck27.0-35.0The Formerly [facility] Physician GroupComment on above:Performed By: #### ESR, CBC, CMP #### [place] [address] USAMonocytes (Bld) [#/Vol]0.7 10*3/uLNormal0.0-0.8The Formerly [facility] Physician GroupComment on above:Performed By: #### ESR, CBC, CMP #### [place] [address] USAMonocytes/100 WBC (Bld)8.9 %Normal.The [facility] Physician GroupComment on above:Performed By: #### ESR, CBC, CMP #### [place] [address] USANeutrophils (Bld) [#/Vol]4.6 10*3/uLNormal1.8-7.7The Former[facility] Physician GroupComment on above:Performed By: #### ESR, CBC, CMP #### [place] [address] USANeutrophils/100 WBC (Bld)54.9 %Normal.The [facility] Physician GroupComment on above:Performed By: #### ESR, CBC, CMP #### [facility] [address] [place] [address] USANRBC%0.3 /100{WBC}Normal0-0.5The [facility] Comment on above:Performed By: #### ESR, CBC, CMP #### [place] [address] USAPlatelet mean volume (Bld) [Entitic vol]8.5 fLNormal 6.3-10.7The Former[facility] Physician GroupComment on above:Performed By: #### ESR, CBC, CMP #### [place] [address] USAPlatelets (Bld) [#/Vol]244 10*3/pFJkzqbs415-577Lgp Former[facility] Physician GroupComment on above:Performed By: #### ESR, CBC, CMP #### [place] [address] USARBC (Bld) [#/Vol]3.45 10*6/uLLow3.60-5.00The Former[facility] Physician GroupComment on above:Performed By: #### ESR, CBC, CMP #### [place] [address] USAWBC (Bld) [#/Vol]8.3 10*3/uLNormal3.8-11.6The Former[facility] Physician GroupComment on above:Performed By: #### ESR, CBC, CMP #### [place] [address] USAComprehensive Metabolic Panelon 30-05-8595Trxmkfq [Mass/Vol]4.0 g/dLNormal3.5-5.7The Former[facility] Physician GroupComment on above: Performed By: #### ESR, CBC, CMP #### [place] [address] USAAlbumin/Globulin [Mass ratio]1.6 {ratio}NormalThe Formerly [facility] Physician GroupComment on above:Performed By: #### ESR, CBC, CMP #### [place] [address] USAALP [Catalytic activity/Vol]92 U/CSmkoqf41-586Gbi Former[facility] Physician GroupComment on above:Result Comment: PERFORMED BY: [place] [address] PATHOLOGIST PRODUCT SAFETY TECHNICIAN BERNARDA GARCIA M.D.Performed By: #### ESR, CBC, CMP #### [place] [address] USAALT [Catalytic activity/Vol]12 U/LNormal7-52The [facility] Physician GroupComment on above:Performed By: #### ESR, CBC, CMP #### [place] [address] USAAnion gap [Moles/Vol]14.0 mmol/LNormal6.0-15.0The [facility] Physician GroupComment on above:Performed By: #### ESR, CBC, CMP #### [place] [address] USAAST [Catalytic activity/Vol]16 U/XYceypp51-98Uvt Former[facility] Physician GroupComment on above:Performed By: #### ESR, CBC, CMP #### [place] [address] USABilirubin [Mass/Vol]0.4 mg/dLNormal0.3-1.0The [facility] Physician GroupComment on above:Performed By: #### ESR, CBC, CMP #### [place] [address] USACalcium [Mass/Vol]9.8 mg/dLNormal8.6-10.3The [facility] Physician GroupComment on above:Performed By: #### ESR, CBC, CMP #### [address] [place] [address] USAChloride [Moles/Vol]101 mmol/CRczgrn27-067Hmf [facility] Physician GroupComment on above:Performed By: #### ESR, CBC, CMP #### [facility] [address] [place] [address] USACO2 [Moles/Vol]32.6 mmol/LHigh21.0-31.0The Former[facility] Physician GroupComment on above:Performed By: #### ESR, CBC, CMP #### [facility] [address] [place] [address] USACreatinine [Mass/Vol]1.26 mg/dLHigh0.60-1.20The Former[facility] Physician GroupComment on above:Performed By: #### ESR, CBC, CMP #### [facility] [address] [place] [address] USAEstimated GFR42.625 mL/MinNormalThe [facility] Physician [facility] HospitalComment on above:Performed By: #### ESR, CBC, CMP #### [facility] [address] [place] [address] USAGlobulin (S) [Mass/Vol]2.5 g/dLNormalThe Formerly [facility] Physician GroupComment on above:Performed By: #### ESR, CBC, CMP #### [facility] [address] [place] [address] USAGlucose [Mass/Vol]179 mg/gWNesb61-710Nvf [facility] Physician GroupComment on above:Result Comment: Random Glucose Reference Range is dependent on time and content of last meal. Glucose of more than 200 mg/dL in a nonstressed, ambulatory subject supports the diagnosis of Diabetes Mellitus. ADA recommended reference rangePerformed By: #### ESR, CBC, CMP #### [facility] [address] [place] [address] USAPotassium [Moles/Vol]3.6 mmol/LNormal3.5-5.1The Former[facility] Physician GroupComment on above:Performed By: #### ESR, CBC, CMP #### [facility] [address] [place] [address] USAProtein [Mass/Vol]6.5 g/dLNormal6.4-8.9The Former[facility] Physician GroupComment on above:Performed By: #### ESR, CBC, CMP #### [facility] [address] [place] [address] USASodium [Moles/Vol]144 mmol/NYlxvkw484-309Pkf Former[facility] Physician GroupComment on above:Performed By: #### ESR, CBC, CMP #### [facility] [address] [place] [address] USAUrea nitrogen [Mass/Vol]28 mg/dLHigh7-25The Former[facility] Physician GroupComment on above:Performed By: #### ESR, CBC, CMP #### [place] [address] USACreatinine [Mass/volume] in Serum or PlasmaOrdered By: Christiano Mcdonnell on 92-00-3325Yrluizdpxe [Mass/Vol]Creatinine [Mass/volume] in Serum or PlasmaHigh0.60-1.20[facility] Mary HospitalEosinophils Auto (Bld) [#/Vol]Ordered By: Christiano Mcdonnell on 97-93-9947Gpnezetgxsn (Bld) [#/Vol] Automated eosinophil count0.0-0.45[facility] Eosinophils/100 WBC Auto (Bld)Ordered By: Christiano Mcdonnell on 12-10-2024 Eosinophils/100 WBC (Bld)Automated eosinophil %.[facility] HospitalErythrocyte Sedimentation Rateon 07-84-9616MXB (Bld) [Velocity]40 mm/hHigh 0-29The Former[facility] Physician GroupComment on above:Result Comment: PERFORMED BY: [place] [address] PATHOLOGIST PRODUCT SAFETY TECHNICIAN BERNARDA GARCIA M.D.Performed By: #### ESR, CBC, CMP #### [place] [address] USAErythrocyte distribution width Auto (RBC) [Ratio]Ordered By: Christiano Mcdonnell on 11-32-6937Gvlwufbqvzs distribution width (RBC) [Ratio] Erythrocyte distribution width [Ratio] by Automated count11.9-15.3FChildren's Hospital for RehabilitationErythrocyte sedimentation rate by Photometric method Ordered By: Christiano Mcdonnell on 87-37-2855DOB Photometric method (Bld) [Velocity] Erythrocyte sedimentation rate by Photometric methodHigh0-29[facility] Mary HospitalGlobulin Calc (S) [Mass/Vol]Ordered By: Christiano Mcdonnell on 65-02-5782Ijhiqkdg (S) [Mass/Vol]Serum globulin measurement by calculation (mass/volume)[facility] HospitalGlucose [Mass/volume] in Serum or PlasmaOrdered By: Christiano Mcdonnell on 55-43-7710Tzppipg [Mass/Vol]Glucose [Mass/volume] in Serum or XwansaOwdj41-746TgvdymlraMount St. Mary Hospital Comment on above:ADA recommended reference rangeRandom Glucose Reference Range is dependent on time and content of last meal. Glucose of more than 200 mg/dL in a nonstressed, ambulatory subject supports the diagnosisof Diabetes Mellitus. Hematocrit Auto (Bld) [Volume fraction]Ordered By: Christiano Mcdonnell on 12-10-2024 Hematocrit (Bld) [Volume fraction]Hematocrit [Volume Fraction] of Blood by Automated iazbrTnc67.0-46.4FChildren's Hospital for RehabilitationHemoglobin [Mass/volume] in BloodOrdered By: Christiano Mcdonnell on 18-65-6784Owogunqjuc (Bld) [Mass/Vol]Hemoglobin [Mass/volume] in OwlgpGon21.8-15.4FChildren's Hospital for RehabilitationLeukocytes [#/volume] corrected for nucleated erythrocytes in Blood by Automated counOrdered By: Christiano Mcdonnell on 33-65-6983QQF corrected for nucl RBC Auto (Bld) [#/Vol]Leukocytes [#/volume] corrected for nucleated erythrocytes in Blood by Automated coun3.8-11.6FChildren's Hospital for Rehabilitation Lymphocytes Auto (Bld) [#/Vol]Ordered By: Christiano Mcdonnell on 12-10-2024 Lymphocytes (Bld) [#/Vol]Lymphocytes [#/volume] in Blood by Automated count 1.00-4.8[facility] Mary HospitalLymphocytes/100 WBC Auto (Bld)Ordered By: Christiano Mcdonnell on 94-25-7352Ohkfvyrsrxq/100 WBC (Bld)Lymphocytes/100 leukocytes in Blood by Automated count.[facility]H Auto (RBC) [Entitic mass]Ordered By: Christiano Mcdonnell on 54-30-1670XLK (RBC) [Entitic mass]MCH [Entitic mass] by Automated count24.7-34.3FChildren's Hospital for RehabilitationMCHC Auto (RBC) [Mass/Vol]Ordered By: Christiano Mcdonnell on 87-21-5726UCTR (RBC) [Mass/Vol]MCHC [Mass/volume] by Automated count32.0-35.0[facility] HospitalMCV Auto (RBC) [Entitic vol]Ordered By: Christiano Mcdonnell on 72-80-9952RPY (RBC) [Entitic vol]MCV [Entitic volume] by Automated duoqc77-[address] [facility] HospitalMonocytes Auto (Bld) [#/Vol]Ordered By: Christiano Mcdonnell on 85-26-8152Kmbcfztlx (Bld) [#/Vol]Automated blood monocyte count 0.0-0.8[facility] HospitalMonocytes/100 WBC Auto (Bld)Ordered By: Christiano Mcdonnell on 56-46-7004Jzqtqktdq/100 WBC (Bld)Automated monocyte %. [facility] HospitalNeutrophils Auto (Bld) [#/Vol]Ordered By: Christiano Mcdonnell on 34-43-8850Qckftjhpmfk (Bld) [#/Vol]Neutrophils [#/volume] in Blood by Automated count1.8-7.7FChildren's Hospital for RehabilitationNeutrophils/100 WBC Auto (Bld)Ordered By: Christiano Mcdonnell on 50-03-3154Qsgqapcqvkr/100 WBC (Bld) Automated neutrophil %.[facility] HospitalNo Panel Information Ordered By: Christiano Mcdonnell on 73-24-1412Vcobssieg GFR (CKD-EPI)42.625 mL/Min [facility] HospitalPharmacy Creatinine Clearance (ChemN/AFChildren's Hospital for RehabilitationNucleated erythrocytes [Presence] in Blood by Automated countOrdered By: Christiano Mcdonnell on 51-21-3176Utaxwwgpp RBC Auto Ql (Bld) Nucleated erythrocytes [Presence] in Blood by Automated count0-0.5FChildren's Hospital for RehabilitationPlatelet mean volume Auto (Bld) [Entitic vol]Ordered By: Christiano Mcdonnell on 72-90-4722Ugmxnbhh mean volume (Bld) [Entitic vol]Platelet mean volume [Entitic volume] in Blood by Automated count6.3-10.7FChildren's Hospital for RehabilitationPlatelets Auto (Bld) [#/Vol]Ordered By: Christiano Mcdonnell on 31-89-6990Dmkyrmvtv (Bld) [#/Vol]Platelets [#/volume] in Blood by Automated oitta421-815VkxpuuikqMount St. Mary HospitalPotassium [Moles/volume] in Serum or PlasmaOrdered By: Christiano Mcdonnell on 63-74-9855Ypblqtwui [Moles/Vol]Potassium [Moles/volume] in Serum or Plasma3.5-5.1FChildren's Hospital for RehabilitationProtein [Mass/volume] in Serum or PlasmaOrdered By: Christiano Mcdonnell on 66-36-5047Gwobjze [Mass/Vol]Protein [Mass/volume] in Serum or Plasma6.4-8.9[facility] Mary HospitalRBC Auto (Bld) [#/Vol]Ordered By: Christiano Mcdonnell on 12-68-3655JIZ (Bld) [#/Vol]Erythrocytes [#/volume] in Blood by Automated countLow3.60-5.00 [facility] Hospitalerum or plasma albumin/globulin mass ratio Ordered By: Christiano Mcdonnell on 67-85-3559Jyawrub/Globulin [Mass ratio]Serum or plasma albumin/globulin mass ratioProMedica Flower Hospitalerum or plasma anion gap determinationOrdered By: Christiano Mcdonnell on 11-72-5677Wzuoi gap [Moles/Vol]Serum or plasma anion gap determination6.0-15.0ProMedica Flower Hospitalodium [Moles/volume] in Serum or PlasmaOrdered By: Christiano Mcdonnell on 99-22-8030Qkxmue [Moles/Vol]Sodium [Moles/volume] in Serum or Nlpxyy299-[address] [facility] HospitalUrea nitrogen [Mass/volume] in Serum or Plasma Ordered By: Christiano Mcdonnell on 37-37-0499Iwbl nitrogen [Mass/Vol]Urea nitrogen [Mass/volume] in Serum or PlasmaHigh7-25[facility] Mary HospitalWBC Auto (Bld) [#/Vol]Ordered By: Christiano Mcdonnell on 11-20-7518MHK (Bld) [#/Vol] Leukocytes [#/volume] in Blood by Automated count3.8-11.6FChildren's Hospital for RehabilitationOffice Visiton 79-57-1714Ddtpmf-up [id number] Harman Mcleod 1940 F Date Provider Department Center 11/05/2024 [facility]RIAN [facility] Family History Problem Relation Age of Onset Stroke Mother Coronary artery disease Father Heart attack Father Family Status - Relation Status Age at Mother Father Level of Service:17365 [place] OFFICE/OUTPATIENT ESTABLISHED [facility] CenterANA Antinuclear Antibodieson 10-29-2024 Antinuclear Abs, IFANegativeNormal.The [facility] Physician GroupComment on above:Result Comment: Negative <1:80 Borderline 1:80 Positive >1:80 ICAP nomenclature: AC-0 For more information about Hep-2 cell patterns use ANApatterns.org, the official website for the International Consensus on Antinuclear Antibody (TYLER) Patterns (ICAP). Performed at: CB - [facility] [place] [id number] Venue Manager: Esteban Martinez PhD, Phone: [phone] PERFORMED BY: [place] [address] PATHOLOGIST PRODUCT SAFETY TECHNICIAN BERNARDA GARCIA M.D.Performed By: #### CBC, CRP, CMP, URIC, ESR #### [address] #### [place] #### [facility] ,Alanine aminotransferase [Enzymatic activity/volume] in Serum or PlasmaOrdered By: Christiano Mcdonnell on 47-45-0910DQE [Catalytic activity/Vol]Alanine aminotransferase [Enzymatic activity/volume] in Serum or Plasma[address] [place], [place] [address]Albumin [Mass/volume] in Serum or Plasma by Bromocresol green (BCG) dye binding methoOrdered By: Christiano Mcdonnell on 71-91-0796Zvpspir BCG dye [Mass/Vol]Albumin [Mass/volume] in Serum or Plasma by Bromocresol green (BCG) dye binding metho3.5-5.7FChildren's Hospital for RehabilitationAlkaline phosphatase [Enzymatic activity/volume] in Serum or PlasmaOrdered By: Christiano Mcdonnell on 03-79-3801BWB [Catalytic activity/Vol]Alkaline phosphatase [Enzymatic activity/volume] in Serum or Wyeybr27-474TezroqvzbMount St. Mary Hospital Aspartate aminotransferase [Enzymatic activity/volume] in Serum or PlasmaOrdered By: Christiano Mcdonnell on 03-60-2123RWB [Catalytic activity/Vol]Aspartate aminotransferase [Enzymatic activity/volume] in Serum or Fxyysf95-60SdxdvmbkdMount St. Mary HospitalBasophils Auto (Bld) [#/Vol]Ordered By: Christiano Mcdonnell on 24-05-9476Rexpwzfbb (Bld) [#/Vol]Automated basophil count0.0-0.2FChildren's Hospital for RehabilitationBasophils/100 WBC Auto (Bld)Ordered By: Christiano Mcdonnell on 62-72-5570Qpxmfyifs/100 WBC (Bld)Automated basophil %.[facility] HospitalBilirubin.total [Mass/volume] in Serum or PlasmaOrdered By: Christiano Mcdonnell on 83-93-9793Zvqxwlsjw [Mass/Vol]Bilirubin.total [Mass/volume] in Serum or Plasma0.3-1.0[facility] Mary HospitalC reactive protein [Mass/volume] in Serum or PlasmaOrdered By: Christiano Mcdonnell on 37-44-6731WLP [Mass/Vol]C reactive protein [Mass/volume] in Serum or PlasmaHigh0.0-0.[address] [facility] HospitalC-Reactive Proteinon 99-59-1232F-Reactive Protein4.6 mg/dLHigh0.0-0.5The [facility] Physician GroupComment on above:Result Comment: PERFORMED BY: [place] [address] PATHOLOGIST PRODUCT SAFETY TECHNICIAN BERNARDA GARCIA M.D.Performed By: #### CBC, CRP, CMP, URIC, ESR #### [place] [address] [place] #### TYLER #### [facility] ,Calcium [Mass/volume] in Serum or PlasmaOrdered By: Christiano Mcdonnell on 08-00-6682Wqpebwv [Mass/Vol]Calcium [Mass/volume] in Serum or Plasma8.6-10.[address] [facility] HospitalCarbon dioxide, total [Moles/volume] in Serum or PlasmaOrdered By: Christiano Martinrow on 22-91-3675RT6 [Moles/Vol]Carbon dioxide, total [Moles/volume] in Serum or Hshdwz01.0-31.0[facility] HospitalChloride [Moles/volume] in Serum or PlasmaOrdered By: Christianoanali Mcdonnell on 41-85-0105Ywbnjzsd [Moles/Vol]Chloride [Moles/volume] in Serum or Qpylhg33-[address] [facility] HospitalComplete Blood Count Auto Diffon 10-29-2024 Basophils (Bld) [#/Vol]0.1 10*3/uLNormal0.0-0.2The [facility] Comment on above:Performed By: #### CBC, CRP, CMP, URIC, ESR #### [place] [address] [place] #### TYLER #### [facility] ,Basophils/100 WBC (Bld)0.5 %Normal.The [facility] Physician GroupComment on above:Performed By: #### CBC, CRP, CMP, URIC, ESR #### [place] [address] [place] #### TYLER #### [facility] ,Eosinophils (Bld) [#/Vol]0.1 10*3/uLNormal0.0-0.45The [facility] Comment on above:Performed By: #### CBC, CRP, CMP, URIC, ESR #### [place] [address] [place] #### TYLER #### [facility] ,Eosinophils/100 WBC (Bld)1.3 %Normal.The [facility] Physician GroupComment on above:Performed By: #### CBC, CRP, CMP, URIC, ESR #### [place] [address] [place] #### TYLER #### [facility] ,Erythrocyte distribution width (RBC) [Ratio]15.5 %High11.9-15.3The [facility] Physician GroupComment on above:Performed By: #### CBC, CRP, CMP, URIC, ESR #### [address] #### TYLER #### [facility] ,Hematocrit (Bld) [Volume fraction]32.0 %Low34.0-46.4The [facility] Physician GroupComment on above:Performed By: #### CBC, CRP, CMP, URIC, ESR #### [address] #### TYLER #### [facility] ,Hemoglobin (Bld) [Mass/Vol]10.5 g/dLLow11.8-15.4The [facility] Comment on above:Performed By: #### CBC, CRP, CMP, URIC, ESR #### [address] #### TYLER #### [facility] ,Lymphocytes (Bld) [#/Vol]2.5 10*3/uLNormal1.00-4.8The [facility] Comment on above:Performed By: #### CBC, CRP, CMP, URIC, ESR #### [address] #### TYLER #### [facility] ,Lymphocytes/100 WBC (Bld)22.2 %Normal.The [facility] Physician GroupComment on above:Performed By: #### CBC, CRP, CMP, URIC, ESR #### [place] [address] [place] #### TYLER #### [facility] ,MCH (RBC) [Entitic mass]30.1 ceHygvwe95.7-34.3The [facility] Comment on above:Performed By: #### CBC, CRP, CMP, URIC, ESR #### [place] [address] [place] #### TYLER #### [facility] ,MCV (RBC) [Entitic vol]91.7 jMHiohoa12-405Qbg [facility] Physician GroupComment on above:Performed By: #### CBC, CRP, CMP, URIC, ESR #### [place] [address] [place] #### TYLER #### [facility] ,Mean Corpuscular HGB Conc32.8 g/bDHbsppu87.0-35.0The [facility] Comment on above:Performed By: #### CBC, CRP, CMP, URIC, ESR #### [address] #### TYLER #### [facility] ,Monocytes (Bld) [#/Vol]0.8 10*3/uLNormal0.0-0.8The [facility] Comment on above:Performed By: #### CBC, CRP, CMP, URIC, ESR #### [place] [address] [place] #### TYLER #### [facility] ,Monocytes/100 WBC (Bld)7.4 %Normal.The [facility] Physician GroupComment on above:Performed By: #### CBC, CRP, CMP, URIC, ESR #### [place] [address] [place] #### TYLER #### [facility] ,Neutrophils (Bld) [#/Vol]7.6 10*3/uLNormal1.8-7.7The [facility] Comment on above:Performed By: #### CBC, CRP, CMP, URIC, ESR #### [place] [address] [place] #### TYLER #### [facility] ,Neutrophils/100 WBC (Bld)68.6 %Normal.The [facility] Physician GroupComment on above:Performed By: #### CBC, CRP, CMP, URIC, ESR #### [facility] [address] [place] [address] #### TYLER #### [facility] ,NRBC%0.1 /100{WBC}Normal0-0.5The [facility] Physician GroupComment on above: Performed By: #### CBC, CRP, CMP, URIC, ESR #### [facility] [address] [place] [address] [place] #### TYLER #### [facility] ,Platelet mean volume (Bld) [Entitic vol]7.9 fLNormal6.3-10.7The [facility] Physician GroupComment on above:Performed By: #### CBC, CRP, CMP, URIC, ESR #### [address] #### TYLER #### [facility] ,Platelets (Bld) [#/Vol]280 10*3/mDAlyahg920-960Hsp [facility] Comment on above:Performed By: #### CBC, CRP, CMP, URIC, ESR #### [facility] [address] [place] [address] #### TYLER #### [facility] ,RBC (Bld) [#/Vol]3.49 10*6/uLLow3.60-5.00The [facility] Physician GroupComment on above:Performed By: #### CBC, CRP, CMP, URIC, ESR #### [place] [address] [place] #### TYLER #### [facility] ,WBC (Bld) [#/Vol]11.1 10*3/uLNormal3.8-11.6The [facility] Physician GroupComment on above:Performed By: #### CBC, CRP, CMP, URIC, ESR #### [facility] [address] [place] [address] [place] #### TYLER #### [facility] ,Comprehensive Metabolic Panelon 96-33-7102Jbwsjyu [Mass/Vol]3.7 g/dLNormal 3.5-5.7The [facility] Physician GroupComment on above:Performed By: #### CBC, CRP, CMP, URIC, ESR #### [address] #### TYLER #### [facility] ,Albumin/Globulin [Mass ratio]1.4 {ratio}NormalThe [facility] Comment on above:Performed By: #### CBC, CRP, CMP, URIC, ESR #### [address] #### TYLER #### [facility] ,ALP [Catalytic activity/Vol]78 U/WWgwvow69-628Dkf [facility] Comment on above:Performed By: #### CBC, CRP, CMP, URIC, ESR #### [address] #### TYLER #### [facility] ,ALT [Catalytic activity/Vol]11 U/LNormal7-52The [facility] Comment on above:Performed By: #### CBC, CRP, CMP, URIC, ESR #### [address] #### TYLER #### [facility] ,Anion gap [Moles/Vol]13.8 mmol/LNormal6.0-15.0The [facility] Comment on above:Performed By: #### CBC, CRP, CMP, URIC, ESR #### [place] [address] [place] #### TYLER #### [facility] ,AST [Catalytic activity/Vol]13 U/ISrcjos77-02Kcw [facility] Comment on above:Performed By: #### CBC, CRP, CMP, URIC, ESR #### [facility] [address] [place] [address] [place] #### TYLER #### [facility] ,Bilirubin [Mass/Vol]0.4 mg/dLNormal0.3-1.0The Former[facility] Physician GroupComment on above:Performed By: #### CBC, CRP, CMP, URIC, ESR #### [facility] [address] [place] [address] #### TYLER #### [facility] ,Calcium [Mass/Vol]9.3 mg/dLNormal8.6-10.3The [facility] Physician GroupComment on above:Performed By: #### CBC, CRP, CMP, URIC, ESR #### [facility] [address] [place] [address] #### TYLER #### [facility] ,Chloride [Moles/Vol]100 mmol/KHlganh24-908Zfb [facility] Physician GroupComment on above:Performed By: #### CBC, CRP, CMP, URIC, ESR #### [facility] [address] [place] [address] #### TYLER #### [facility] ,CO2 [Moles/Vol]30.5 mmol/DBcdzqd44.0-31.0The Former[facility] Physician GroupComment on above:Performed By: #### CBC, CRP, CMP, URIC, ESR #### [address] #### TYLER #### [facility] ,Creatinine [Mass/Vol]1.29 mg/dLHigh0.60-1.20The [facility] Comment on above:Performed By: #### CBC, CRP, CMP, URIC, ESR #### [facility] [address] [place] [address] [place] #### TYLER #### [facility] ,Estimated GFR41.438 mL/MinNormalThe Formerly [facility] Physician GroupComment on above: Performed By: #### CBC, CRP, CMP, URIC, ESR #### [facility] [address] [place] [address] [place] #### TYLER #### [facility] ,Globulin (S) [Mass/Vol]2.7 g/dLNormSouthwest General Health Centere Formerly [facility] Physician GroupComment on above:Performed By: #### CBC, CRP, CMP, URIC, ESR #### [place] [address] [place] #### TYLER #### [facility] ,Glucose [Mass/Vol]134 mg/nZVpia24-418Ecn [facility] Physician GroupComment on above:Result Comment: Random Glucose Reference Range is dependent on time and content of last meal. Glucose of more than 200 mg/dL in a nonstressed, ambulatory subject supports the diagnosis of Diabetes Mellitus. ADA recommended reference rangePerformed By: #### CBC, CRP, CMP, URIC, ESR #### [address] #### TYLER #### [facility] ,Potassium [Moles/Vol]3.3 mmol/LLow3.5-5.1The [facility] Physician GroupComment on above:Performed By: #### CBC, CRP, CMP, URIC, ESR #### [place] [address] [place] #### TYLER #### [facility] ,Protein [Mass/Vol]6.4 g/dLNormal6.4-8.9The [facility] Physician GroupComment on above:Performed By: #### CBC, CRP, CMP, URIC, ESR #### [place] [address] [place] #### TYLER #### [facility] ,Sodium [Moles/Vol]141 mmol/KFrmwzz143-371Bvt [facility] Physician GroupComment on above:Performed By: #### CBC, CRP, CMP, URIC, ESR #### [place] [address] [place] #### TYLER #### [facility] ,Urea nitrogen [Mass/Vol]21 mg/dLNormal7-25The [facility] Physician GroupComment on above:Performed By: #### CBC, CRP, CMP, URIC, ESR #### [facility] [address] [place] [address] #### TYLER #### [facility] ,Creatinine [Mass/volume] in Serum or PlasmaOrdered By: Christiano Mcdonnell on 96-72-8543Znqhcpjkzw [Mass/Vol]Creatinine [Mass/volume] in Serum or PlasmaHigh 0.60-1.20[facility] HospitalEosinophils Auto (Bld) [#/Vol]Ordered By: Christiano Mcdonnell on 43-49-2179Ckuyhyrdwmc (Bld) [#/Vol]Automated eosinophil count0.0-0.45[facility] HospitalEosinophils/100 WBC Auto (Bld) Ordered By: Christiano Mcdonnell on 30-86-0033Iiavakaxgay/100 WBC (Bld)Automated eosinophil %.[facility] HospitalErythrocyte Sedimentation Rateon 43-34-4587KAM (Bld) [Velocity]78 mm/hHigh0-29The [facility] Comment on above:Result Comment: PERFORMED BY: [place] [address] PATHOLOGIST PRODUCT SAFETY TECHNICIAN BERNARDA GARCIA M.D.Performed By: #### CBC, CRP, CMP, URIC, ESR #### [facility] [address] [place] [address] #### TYLER #### [facility] ,Erythrocyte distribution width Auto (RBC) [Ratio]Ordered By: Christiano Mcdonnell on 24-76-3137Ncuckpzzljv distribution width (RBC) [Ratio]Erythrocyte distribution width [Ratio] by Automated qzsxoYvkq03.9-15.3FChildren's Hospital for Rehabilitation Erythrocyte sedimentation rate by Photometric methodOrdered By: Christiano Mcdonnell on 61-89-4044JNC Photometric method (Bld) [Velocity]Erythrocyte sedimentation rate by Photometric methodHigh0-29[facility] HospitalGlobulin Calc (S) [Mass/Vol]Ordered By: Christiano Mcdonnell on 27-00-4781Ngftjfle (S) [Mass/Vol] Serum globulin measurement by calculation (mass/volume)[facility] HospitalGlucose [Mass/volume] in Serum or PlasmaOrdered By: Christiano Mcdonnell on 05-04-2738Lxzrnvy [Mass/Vol]Glucose [Mass/volume] in Serum or PlasmaHigh 70-100[facility] Mary HospitalComment on above:ADA recommended reference rangeRandom Glucose Reference Range is dependent on time and content of last meal. Glucose of more than 200 mg/dL in a nonstressed, ambulatory subject supports the diagnosisof Diabetes Mellitus.Hematocrit Auto (Bld) [Volume fraction]Ordered By: Christiano Mcdonnell on 14-12-9342Walxonrgjd (Bld) [Volume fraction]Hematocrit [Volume Fraction] of Blood by Automated iortzBgk58.0-46.[address] [facility] HospitalHemoglobin [Mass/volume] in BloodOrdered By: Christiano Mcdonnell on 34-67-7449Zllbtsqkof (Bld) [Mass/Vol]Hemoglobin [Mass/volume] in IhzxfVpw33.8-15.4FChildren's Hospital for RehabilitationLeukocytes [#/volume] corrected for nucleated erythrocytes in Blood by Automated counOrdered By: Christiano Mcdonenll on 47-29-0513OFW corrected for nucl RBC Auto (Bld) [#/Vol] Leukocytes [#/volume] corrected for nucleated erythrocytes in Blood by Automated coun3.8-11.6FChildren's Hospital for RehabilitationLymphocytes Auto (Bld) [#/Vol] Ordered By: Christiano Mcdonnell on 22-65-4315Hjvnazefsoi (Bld) [#/Vol]Lymphocytes [#/volume] in Blood by Automated count1.00-4.8[facility] Lymphocytes/100 WBC Auto (Bld)Ordered By: Christiano Mcdonnell on 10-29-2024 Lymphocytes/100 WBC (Bld)Lymphocytes/100 leukocytes in Blood by Automated count. [facility]H Auto (RBC) [Entitic mass]Ordered By: Christiano Mcdonnell on 49-50-7266WIR (RBC) [Entitic mass]MCH [Entitic mass] by Automated count24.7-34.3FChildren's Hospital for RehabilitationMCHC Auto (RBC) [Mass/Vol]Ordered By: Christiano Mcdonnell on 01-11-2519UEDI (RBC) [Mass/Vol]MCHC [Mass/volume] by Automated count32.0-35.0[facility] HospitalMCV Auto (RBC) [Entitic vol]Ordered By: Christiano Mcdonnell on 89-23-2915ZKY (RBC) [Entitic vol]MCV [Entitic volume] by Automated vduoz02-353VhisufjqbMount St. Mary HospitalMonocytes Auto (Bld) [#/Vol]Ordered By: Christiano Mcdonnell on 02-80-7196Miumqjbez (Bld) [#/Vol]Automated blood monocyte count0.0-0.8[facility] HospitalMonocytes/100 WBC Auto (Bld)Ordered By: Christiano Mcdonnell on 49-27-7870Etxcygdez/100 WBC (Bld)Automated monocyte %.[facility] HospitalNeutrophils Auto (Bld) [#/Vol]Ordered By: Christiano Mcdonnell on 86-23-6668Ukjvlnrehdx (Bld) [#/Vol]Neutrophils [#/volume] in Blood by Automated count1.8-7.7FChildren's Hospital for RehabilitationNeutrophils/100 WBC Auto (Bld) Ordered By: Christiano Mcdonnell on 70-49-3244Avouhqumptf/100 WBC (Bld)Automated neutrophil %.[facility] HospitalNo Panel InformationOrdered By: Christiano Mcdonnell on 47-81-9924Tqueczprv GFR (CKD-EPI)41.438 mL/MinMount St. Mary HospitalPharmacy Creatinine Clearance (ChemN/AFChildren's Hospital for RehabilitationNucleated erythrocytes [Presence] in Blood by Automated count Ordered By: Christiano Mcdonnell on 46-55-7866Cstsxuxjf RBC Auto Ql (Bld)Nucleated erythrocytes [Presence] in Blood by Automated count0-0.5FChildren's Hospital for RehabilitationPlatelet mean volume Auto (Bld) [Entitic vol]Ordered By: Christiano Mcdonnell on 17-03-5384Xzagwzsv mean volume (Bld) [Entitic vol]Platelet mean volume [Entitic volume] in Blood by Automated count6.3-10.7FChildren's Hospital for RehabilitationPlatelets Auto (Bld) [#/Vol]Ordered By: Christiano Mcdonnell on 10-29-2024 Platelets (Bld) [#/Vol]Platelets [#/volume] in Blood by Automated -[address] [facility] HospitalPotassium [Moles/volume] in Serum or Plasma Ordered By: Christiano Mcdonnell on 42-36-6385Befzmkbdo [Moles/Vol]Potassium [Moles/volume] in Serum or PlasmaLow3.5-5.1FChildren's Hospital for Rehabilitation Protein [Mass/volume] in Serum or PlasmaOrdered By: Christiano Mcdonnell on 10-29-2024 Protein [Mass/Vol]Protein [Mass/volume] in Serum or Plasma6.4-8.9[facility] HospitalRBC Auto (Bld) [#/Vol]Ordered By: Christiano Mcdonnell on 85-86-7057KNS (Bld) [#/Vol]Erythrocytes [#/volume] in Blood by Automated count Low3.60-5.00ProMedica Flower Hospitalerum nuclear antibody titerOrdered By: Christiano Mcdonnell on 71-16-3278Bzqbrbp Ab (S) [Titer]Serum nuclear antibody titer.[facility] HospitalComment on above:Negative <1:80 Borderline 1:80 Positive >1:80ICAP nomenclature: AC-0For more information about Hep-2 cell patterns useANApatterns.org, the official website for theInternational Consensus on Antinuclear Antibody (TYLER)Patterns (ICAP).Performed at: [place] [id number] Director: Esteban Martinez PhD, Phone: [phone] or plasma albumin/globulin mass ratioOrdered By: Christiano Mcdonnell on 10-29-2024 Albumin/Globulin [Mass ratio]Serum or plasma albumin/globulin mass ratio ProMedica Flower Hospitalerum or plasma anion gap determinationOrdered By: Christiano Mcdonnell on 59-43-6611Hapuf gap [Moles/Vol]Serum or plasma anion gap determination6.0-15.0ProMedica Flower Hospitalodium [Moles/volume] in Serum or PlasmaOrdered By: Christiano Mcdonnell on 60-77-5329Czwewi [Moles/Vol]Sodium [Moles/volume] in Serum or Wlbccv707-518ThewqupetMount St. Mary HospitalUrate [Mass/volume] in Serum or PlasmaOrdered By: Christiano Mcdonnell on 09-76-1812Vxxgx [Mass/Vol]Urate [Mass/volume] in Serum or Plasma2.3-6.6FChildren's Hospital for RehabilitationUrea nitrogen [Mass/volume] in Serum or PlasmaOrdered By: Christiano Mcdonnell on 07-30-2043Lqsx nitrogen [Mass/Vol]Urea nitrogen [Mass/volume] in Serum or Plasma7-[facility] HospitalUric Acidon 25-95-1650Zevjm [Mass/Vol]4.7 mg/dLNormal2.3-6.6The [facility] Physician GroupComment on above: Performed By: #### CBC, CRP, CMP, URIC, ESR #### [facility] [address] #### TYLER #### [facility] ,WBC Auto (Bld) [#/Vol]Ordered By: Christiano Mcdonnell on 68-41-8951FLN (Bld) [#/Vol] Leukocytes [#/volume] in Blood by Automated count3.8-11.6FChildren's Hospital for RehabilitationCNPNon 70-51-0400VHOEAqfakukws (HEMASA) HARMAN MCLEOD ([id number]) 1940 F Date Time Provider Department 10/09/24 [...] daily at bedtime. Cut in half - Qaidz-4-LOI-EPA-Fish Oil 1,000 mg (120 mg-180 mg) cap Take 2 g by mouth twice daily. - isosorbide mononitrate ER (IMDUR) 60 mg 24 hr tablet Take 60 mg by mouth twice daily. 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 Stage 3a chronic kidney disease (HCC) [N18.31] 02/14/2023 Encounter Status:Closed by VERNELL DEY on 10/09/24NormalCcincinnati va medical centerand [facility] W Auto Differential panel (Bld)on 59-63-9332Vrlmdxhnv (Bld) [#/Vol] 0.04 10*3/uLNINFClinton Memorial HospitalBasophils/100 WBC (Bld)0.4 %[facility] Differential cell count method Nom (Bld)AutoCleveland ClinicEosinophils (Bld) [#/Vol]0.30 10*3/uLNINFCleProMedica Toledo HospitalEosinophils/100 WBC (Bld)2.9 %[facility] HospitalErythrocyte distribution width (RBC) [Ratio]14.6 %11.5 - 15.0 %[facility] HospitalHematocrit (Bld) [Volume fraction]31.9 %Low36.0 - 46.0 %[facility] Hemoglobin (Bld) [Mass/Vol]10.6 g/dLLow11.5 - 15.5 g/dLClinton Memorial HospitalImmature granulocytes (Bld) [#/Vol]0.07 10*3/uLNINFClinton Memorial HospitalImmamercy health urbana hospital granulocytes/100 WBC (Bld)0.7 %[facility] HospitalInterpretation and review of laboratory resultsAbnormalClevelcentral carolina hospital ClinicLymphocytes (Bld) [#/Vol]2.55 10*3/uL [facility] HospitalLymphocytes/100 WBC (Bld)24.6 %[facility] Medical CenterH (RBC) [Entitic mass]31.0 pg26.0 - 34.0 pgCUniversity Hospitals Health SystemHC (RBC) [Mass/Vol]33.2 g/dL30.5 - 36.0 g/dLUniversity Hospitals St. John Medical CenterV (RBC) [Entitic vol]93.3 fL80.0 - 100.0 fLCNewark HospitalMonocytes (Bld) [#/Vol]0.86 10*3/uLNINFClinton Memorial Hospital Monocytes/100 WBC (Bld)8.3 %[facility] HospitalNeutrophils (Bld) [#/Vol]6.53 10*3/uLClinton Memorial HospitalNeutrophils/100 WBC (Bld)63.1 %[facility] HospitalNucleated RBC (Bld) [#/Vol]NINFClevelAkron Children's HospitalNucleated RBC/100 WBC (Bld) [Ratio]0.0 % /100 WBCClinton Memorial HospitalPlatelet mean volume (Bld) [Entitic vol]8.9 fLLow9.0 - 12.7 fLCfirelands regional medical center ClinicPlatelets (Bld) [#/Vol]290 10*3/uLClinton Memorial HospitalRBC (Bld) [#/Vol]3.42 10*6/uLLow3.90 - 5.20 m/uLClinton Memorial HospitalWBC (Bld) [#/Vol] 10.35 10*3/uLKettering Health – Soin Medical Center ClinicBasophils (Bld) [#/Vol]0.04 10*3/uL Normal<0.11CMemorial Health System [facility] on above:Order Comment: Specimen Type: BLOOD SPECIMEN Ordering Facility: [facility] Address: [address] [place], [place] [address]Performed By: #### [id number] #### [facility] CLIA [id number] [address] [place], [place] [address]Ayodytdxi/100 WBC (Bld)0.4 %NormalVeterans Health Administration Comment on above:Order Comment: Specimen Type: BLOOD SPECIMEN Ordering Facility: [facility] Address: [address] [place], [place] [address]Performed By: #### [id number] #### [facility] CLIA [id number] [address] [place] [address] 15082Jeokqxxvoyqi cell count method Nom (Bld)AutoNormalCLouis Stokes Cleveland VA Medical CenterComharbor beach community hospital on above:Order Comment: Specimen Type: BLOOD SPECIMEN Ordering Facility: [facility] Address: [address] [place], [place] [address]Performed By: #### [id number] #### [facility] CLIA [id number] [address] [place] [address] 19077Dcwinsrrcen (Bld) [#/Vol]0.30 10*3/uLNormal<0.46[facility] on above:Order Comment: Specimen Type: BLOOD SPECIMEN Ordering Facility: [facility] Address: [address] [place], [place] [address]Performed By: #### [id number] #### [facility] CLIA [id number] [address] [place], [place] [address]Ymvfctiewkd/100 WBC (Bld)2.9 %NormalVeterans Health Administration Comment on above:Order Comment: Specimen Type: BLOOD SPECIMEN Ordering Facility: [facility] Address: [address] [place], [place] [address]Performed By: #### [id number] #### [facility] CLIA [id number] [address] [place] [address] 23643Adcectsmlct distribution width (RBC) [Ratio]14.6 %Normal 11.5-15.0[facility] on above:Order Comment: Specimen Type: BLOOD SPECIMEN Ordering Facility: [facility] Address: [address] [place], [place] [address]Performed By: #### [id number] #### [facility] CLIA [id number] [address] [place] [address] 25946Zlblidlrct (Bld) [Volume fraction]31.9 %Low36.0-46.0[facility] on above:Order Comment: Specimen Type: BLOOD SPECIMEN Ordering Facility: [facility] Address: [address] [place], [place] [address]Performed By: #### 91273-9 #### [facility] CLIA [id number] [address] [place] [address] 43533Sbaprguith (Bld) [Mass/Vol]10.6 g/dLLow11.5-15.5CMemorial Health System [facility] on above:Order Comment: Specimen Type: BLOOD SPECIMEN Ordering Facility: [facility] Address: [address] [place], [place] [address]Performed By: #### [id number] #### [facility] CLIA [id number] [address] [place] [address]Oacbjtyg granulocytes (Bld) [#/Vol]0.07 10*3/uLNormal<0.10 [facility] on above:Order Comment: Specimen Type: BLOOD SPECIMEN Ordering Facility: [facility] Address: [address] [place], [place] [address]Performed By: #### [id number] #### [facility] CLIA [id number] [address] [place] [address] 795[address]Bkeqtiac granulocytes/100 WBC (Bld)0.7 %NormalAvita Health System [facility] on above:Order Comment: Specimen Type: BLOOD SPECIMEN Ordering Facility: [facility] Address: [address] [place], [place] [address]Performed By: #### [id number] #### [facility] CLIA [id number] [address] [place], [place] [address]Nkddmptznxk (Bld) [#/Vol]2.55 10*3/uLNormal1.00-4.00[facility] on above:Order Comment: Specimen Type: BLOOD SPECIMEN Ordering Facility: [facility] Address: [address] [place], [place] [address]Performed By: #### 55322-9 #### [facility] CLIA [id number] [address] [place] [address] 38282Nlvagtnklmi/100 WBC (Bld)24.6 %NormalAvita [facility] System [facility] on above:Order Comment: Specimen Type: BLOOD SPECIMEN Ordering Facility: [facility] Address: [address] [place], [place] [address]Performed By: #### 53515-6 #### [facility] CLIA [id number] [address] [place] [address] 59847JBR (RBC) [Entitic mass]31.0 oqDlzkbw49.0-34.0[facility] on above:Order Comment: Specimen Type: BLOOD SPECIMEN Ordering Facility: [facility] Address: [address] [place], [place] [address]Performed By: #### 42090-4 #### [facility] CLIA [id number] [address] [place] [address] 62627YZPE (RBC) [Mass/Vol]33.2 g/mUNjvvyd27.5-36.0[facility] on above:Order Comment: Specimen Type: BLOOD SPECIMEN Ordering Facility: [facility] Address: [address] [place], [place] [address]Performed By: #### 36656-6 #### [facility] CLIA [id number] [address] [place] [address] 87794PHI (RBC) [Entitic vol]93.3 pZLohowb72.0-100.0[facility] on above:Order Comment: Specimen Type: BLOOD SPECIMEN Ordering Facility: [facility] Address: [address] [place], [place] [address]Performed By: #### 73887-1 #### [facility] CLIA [id number] [address] [place] [address] 27736Mvtkvnpjk (Bld) [#/Vol]0.86 10*3/uLNormal<0.87[facility] on above:Order Comment: Specimen Type: BLOOD SPECIMEN Ordering Facility: [facility] Address: [address] [place], [place] [address]Performed By: #### 94032-3 #### [facility] CLIA [id number] [address] [place] [address] 16601Octlvpzdy/100 WBC (Bld)8.3 %NormalVeterans Health Administration Comment on above:Order Comment: Specimen Type: BLOOD SPECIMEN Ordering Facility: [facility] Address: [address] [place], [place] [address]Performed By: #### 48449-9 #### [facility] CLIA [id number] [address] [place] [address] 76259Itkotmyypaz (Bld) [#/Vol]6.53 10*3/uLNormal1.45-7.50[facility] on above:Order Comment: Specimen Type: BLOOD SPECIMEN Ordering Facility: [facility] Address: [address] [place], [place] [address]Performed By: #### 02158-3 #### [facility] CLIA [id number] [address] [place] [address] 86612Rafawvlznmc/100 WBC (Bld)63.1 %NormalAvita Health System [facility] on above:Order Comment: Specimen Type: BLOOD SPECIMEN Ordering Facility: [facility] Address: [address] [place], [place] [address]Performed By: #### 24484-1 #### [facility] CLIA [id number] [address] [place] [address] 10296Zkqbmpsma RBC (Bld) [#/Vol]10*3/uLNormal<0.01[facility] on above:Order Comment: Specimen Type: BLOOD SPECIMEN Ordering Facility: [facility] Address: [address] [place], [place] [address]Performed By: #### 24716-5 #### [facility] CLIA [id number] [address], [place] [address]Hgjbtemtq RBC/100 WBC (Bld) [Ratio]0.0 /100 WBCNormalCMemorial Health System [facility] on above:Order Comment: Specimen Type: BLOOD SPECIMEN Ordering Facility: [facility] Address: [address] [place], [place] [address]Performed By: #### 78066-9 #### [facility] CLIA [id number] [address], [place] [address]Hajbznut mean volume (Bld) [Entitic vol]8.9 fLLow9.0-12.7 [facility] on above:Order Comment: Specimen Type: BLOOD SPECIMEN Ordering Facility: [facility] Address: [address] [place], [place] [address]Performed By: #### 71422-5 #### [facility] CLIA [id number] [address], [place] [address]Itgmpmcbz (Bld) [#/Vol]290 10*3/yNVbwicj172-404MsxekyrrxAvita Health System [facility] on above:Order Comment: Specimen Type: BLOOD SPECIMEN Ordering Facility: [facility] Address: [address] [place], [place] [address]Performed By: #### 74833-6 #### [facility] CLIA [id number] [address], [place] [address]ZVX (Bld) [#/Vol]3.42 10*6/uLLow3.90-5.20[facility] on above:Order Comment: Specimen Type: BLOOD SPECIMEN Ordering Facility: [facility] Address: [address] [place] [address], [place] [address]Mwyfeoqoe By: #### 83447-4 #### [facility] CLIA [id number] [address] [place] [address] 92705AOC (Bld) [#/Vol]10.35 10*3/uLNormal3.70-11.00Veterans Health AdministrationComment on above:Order Comment: Specimen Type: BLOOD SPECIMEN Ordering Facility: [facility] Address: [facility] [place], [place] [address]Fsiszmder By: #### 16677-0 #### [facility] CLIA [id number] [address], [place] [address]AWVWYLcr [id number] (SP) Office (HEMASA) HARSHAHARMAN Coronel ([id number]) 1940 F Date Time Provider Department 10/08/24 1:00 PM VAIBHAV ASHTON During your visit today, we recorded the following information about you: Temperature Pulse Respiration Blood pressure 97.2 degrees 75/minute 16/minute 144/63 Weight Height 67.5 kg 1.549 m Vaibhav Ashton MD 10/08/2024 2:03 PM Addendum PATIENT NAME: Harman Coronel [facility] NO.: [id number] ATTENDING PHYSICIAN: Vaibhav Ashton MD DATE OF SERVICE: 10/08/24 Some of the elements of this note have been copied from Winnie MILLAN previous progress note dated 06/20/23. All the information has been reviewed carefully. CC: Follow up Diagnosis: T1b, N0, M0- R breast, Tumor 9 mm, Grade 2, Margins negative, Negative LVI, 2 SNL negative, ER and CA >95% positive, Her2 IHC 1+ Treatment History: [...] in Jun 2024 - Mammogram done at [facility] - On eliquis for Afib [...] 30 04/28/2020 28 Crea (more content not included)...NormalVeterans Health AdministrationComprehensive metabolic 2000 panelOrdered By: Ben Vargas on 13-63-1132Yvamodb [Mass/Vol]3.9 g/dL3.9 - 4.9 g/dLSaint Elmo ClinicALP [Catalytic activity/Vol]88 U/L34 - 123 U/L [...] eGFRmay not accurately reflect actual GFR.Glucose [Mass/Vol]122 mg/yHUcpg01 - 99 mg/dLSaint Elmo ClinicComment on above:The [employer] Diabetes Association (ADA) provides guidance for cutoff [...] Standards of Medical Care in Diabetes 2016, [employer] Diabetes Association. Diabetes Care. 2016.39(Suppl 1). Interpretation and review of laboratory resultsAbnormalCleveland ClinicPotassium [Moles/Vol]3.4 mmol/LLow3.7 - 5.1 mmol/LCleveland ClinicProtein [Mass/Vol]6.9 g/dL6.3 - 8.0 g/dLCleveland ClinicSodium [Moles/Vol]141 mmol/L136 - 144 mmol/L [facility] nitrogen [Mass/Vol]19 mg/dL7 - 21 mg/dLMercy Memorial Hospitalprehensive metabolic 2000 panelon 60-65-4836Dsyapqv [Mass/Vol]3.9 g/dLNormal3.9-4.9CMemorial Health System [facility] on above:Order Comment: Specimen Type: BLOOD SPECIMEN Ordering Facility: [facility] Address: [address] [place], [place] [address]Performed By: #### 33657-2 #### [facility] CLIA [id number] [address], [place] [address]UMM [Catalytic activity/Vol]88 U/UGztzru18-072PqlwnixguAvita Health System Ontario Hospital on above:Order Comment: Specimen Type: BLOOD SPECIMEN Ordering Facility: [facility] Address: [address] [place], [place] [address]Performed By: #### 55149-8 #### [facility] CLIA [id number] [address], [place] [address]NUF [Catalytic activity/Vol]7 U/LNormal7-38[facility] on above:Order Comment: Specimen Type: BLOOD SPECIMEN Ordering Facility: [facility] Address: [address] [place], [place] [address]Performed By: #### 82675-1 #### [facility] CLIA [id number] [address], [place] [address]Hbsvg gap [Moles/Vol]13 mmol/LNormal8-15[facility] on above:Order Comment: Specimen Type: BLOOD SPECIMEN Ordering Facility: [facility] Address: [address] [place], [place] [address]Performed By: #### 88418-3 #### [facility] CLIA [id number] [address], [place] [address]UWH [Catalytic activity/Vol]11 U/PIen44-73QwifnkjrbAvita Health System Ontario Hospital on above:Order Comment: Specimen Type: BLOOD SPECIMEN Ordering Facility: [facility] Address: [address] [place], [place] [address]Performed By: #### 55102-6 #### [facility] CLIA [id number] [address], [place] [address]Gieqpnabp [Mass/Vol]0.3 mg/dLNormal0.2-1.3CLouis Stokes Cleveland VA Medical CenterComharbor beach community hospital on above:Order Comment: Specimen Type: BLOOD SPECIMEN Ordering Facility: [facility] Address: [address] [place], [place] [address]Performed By: #### 05040-7 #### [facility] CLIA [id number] [address], [place] [address]Zzcltvo [Mass/Vol]9.7 mg/dLNormal8.5-10.2CLouis Stokes Cleveland VA Medical CenterComment on above:Order Comment: Specimen Type: BLOOD SPECIMEN Ordering Facility: [facility] Address: [address] [place], [place] [address]Performed By: #### 43062-6 #### [facility] CLIA [id number] [address] [place] [address] 09981Nbxxezzv [Moles/Vol]99 mmol/XDtehsr68-497ZpzqrbscbVeterans Health AdministrationComment on above:Order Comment: Specimen Type: BLOOD SPECIMEN Ordering Facility: [facility] Address: [address] [place], [place] [address]Performed By: #### 02499-1 #### [facility] CLIA [id number] [address], [place] [address]BA0 [Moles/Vol]29 mmol/SNohxgh65-90TigukmtjcVeterans Health Administration Comment on above:Order Comment: Specimen Type: BLOOD SPECIMEN Ordering Facility: [facility] Address: [address] [place], [place] [address]Performed By: #### 73981-8 #### [facility] CLIA [id number] [address], [place] [address]Vakehtmczp [Mass/Vol]1.49 mg/dLHigh0.58-0.96[facility] Hospitalment on above:Order Comment: Specimen Type: BLOOD SPECIMEN Ordering Facility: [facility] Address: [address] [place] [address]Badtcnrdi By: #### 20008-6 #### [facility] CLIA [id number] [address] [place] [address]Ccpxajktqd and Glomerular filtration rate.predicted panel (S/P/Bld)35 mL/min/1.73m???Low>=60[facility] on above: Order Comment: Specimen Type: BLOOD SPECIMEN Ordering Facility: [facility] Address: [address] [place] [address]Ochoyl Comment: Estimated Glomerular Filtration Rate (eGFR) is [...] not accurately reflect actual GFR.Performed By: #### 76067-8 #### [facility] CLIA [id number] [address] [place] [address] 24959Stbybyq [Mass/Vol]122 mg/mIRtqg65-36QirrbhiapVeterans Health Administration Comment on above:Order Comment: Specimen Type: BLOOD SPECIMEN Ordering Facility: [facility] Address: [address] [place] [address]Fctwla Comment: The [place] Diabetes Association (ADA) provides guidance for cutoff [...] Standards of Medical Care in Diabetes 2016, [employer] Diabetes Association. Diabetes Care. 2016.39(Suppl 1).Performed By: #### 82804-4 #### [facility] CLIA [id number] [address], [place] [address]Exkjjeayd [Moles/Vol]3.4 mmol/LLow3.7-5.1CMemorial Health System [facility] on above:Order Comment: Specimen Type: BLOOD SPECIMEN Ordering Facility: [facility] Address: [address] [place], [place] [address]Performed By: #### 94389-4 #### [facility] CLIA [id number] [address] [place] [address]Mocjwrz [Mass/Vol]6.9 g/dLNormal6.3-8.0[facility] on above:Order Comment: Specimen Type: BLOOD SPECIMEN Ordering Facility: [facility] Address: [address] [place], [place] [address]Performed By: #### 48886-1 #### [facility] CLIA [id number] [address] [place] [address] 77272Kmdkkb [Moles/Vol]141 mmol/RTawynu836-436EwilozzvrAvita Health System [facility] on above:Order Comment: Specimen Type: BLOOD SPECIMEN Ordering Facility: [facility] Address: [address] [place], [place] [address]Performed By: #### 12440-5 #### [facility] CLIA [id number] [address] [place] [address] 639[address]Hlaz nitrogen [Mass/Vol]19 mg/dLNormal7-21[facility] on above:Order Comment: Specimen Type: BLOOD SPECIMEN Ordering Facility: [facility] Address: [address] [place], [place] [address]Performed By: #### 08351-5 #### [facility] CLIA [id number] [address] [place] [address] 88457Abcvsmgk [facility] 03-37-1619Dovoptlg [Mass/Vol]143.0 ng/mL Eohzbi43.7-205.1CMemorial Health System [facility] on above:Order Comment: Specimen Type: BLOOD SPECIMEN Ordering Facility: [facility] Address: [address] [place], [place] [address]Performed By: #### 2132-9, 2276-4, 52854-9, 2283-8 #### [facility] CLIA [id number] [address] [place] [address] [place] OF AMERICAFolate SerPl-mCncon 57-49-5898Buihez [Mass/Vol]10.2 ng/mLNormal>4.7CMemorial Health System [facility] on above:Order Comment: Specimen Type: BLOOD SPECIMEN Ordering Facility: [facility] Address: [address] [place], [place] [address]Performed By: #### 2132-9, 2276-4, 47818-3, 2283-8 #### [facility] CLIA [id number] [address] [place] [address] STATES OF [facility] HOSPITALIron and Iron binding capacity panelon 95-70-2500Nkla [Mass/Vol]48 ug/fAKrccye24-345RorhbqrokAvita Health System [facility] on above:Order Comment: Specimen Type: BLOOD SPECIMEN Ordering Facility: [facility] Address: [address] [place], [place] [address]Performed By: #### 2132-9, 6-4, 81209-4, 2283-8 #### [facility] CLIA [id number] [address] [place] [address] STATES [facility]SDAM HOSPITALIron binding capacity [Mass/Vol]237 ug/sXEasttu407-756KveoqymunAvita Health System [facility] on above:Order Comment: Specimen Type: BLOOD SPECIMEN Ordering Facility: [facility] Address: [address] [place], [place] [address]Performed By: #### 2132-9, 6-4, 90074-0, 2283-8 #### [facility] CLIA [id number] [address] [place] [address] AMERICAIron/TIBC [Molar ratio]20.3 %Onvrln24.0-57.0[facility] on above:Order Comment: Specimen Type: BLOOD SPECIMEN Ordering Facility: [facility] Address: [address] [place], [place] [address]Performed By: #### 2132-9, 2276-4, 78390-6, 2284-8 #### [facility] CLIA [id number] [address] [place], [place] [address]Vit B12 SerPl-[facility] 28-31-7542Ifdygqeat (Vitamin B12) [Mass/Vol]214 pg/gVZxr672-0908VpekuaujnMemorial Health System [facility] on above:Order Comment: Specimen Type: BLOOD SPECIMEN Ordering Facility: [facility] Address: [address] [place], [place] [address]Performed By: #### 2132-9, 2276-4, 84037-6, 228-8 #### [facility] CLIA [id number] [address] [place] [address] STATES OF AMERICACNPNon [phone] Telephone (INDIA) HARMAN MCLEOD ([id number]) 1940 F Date Time Provider Department 10/04/24 [...] that he practices out of the [facility] location. I made her aware that I will send a message and she is to expect a call. Patient and daughter agree with plan and appreciate the time. Maylin Sandoval, RN Evita Deshpande RN 10/04/2024 12:51 PM Signed Per 06/20/23 [facility] oncology: pt is to return in about 4 months (around 10/21/2023) for MD miquel visit. 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 Cut in half - Hwaqt-8-KVO-EPA-Fish Oil 1,000 mg (120 mg-180 mg) cap Take 2 g by mouth twice daily. - isosorbide mononitrate ER (IMDUR) 60 mg 24 hr tablet Take 60 mg by mouth twice daily. Problem List As Of Date 10/04/2024 Noted Resolved Hypertension [I10] DM type 2 (diabetes mellitus, type 2) ([facility]) [E1* Essential hypertension [I10] 01/16/2017 Type 2 diabetes mellitus without complication, *01/16/2017 Hypothyroidism [E03.9] 01/16/2017 Dyslipidemia [E78.5] 01/16/2017 Atherosclerosis of [place] coronary artery of na*01/16/2017 S/P coronary artery stent placement [Z (more content not included)...Normal [facility] AdministrationFo[facility] 96-34-6406Obyzuj-[id number] Harman Mcleod 1940 Provider Department Center 09/24/2024 BRIAN FLANNERY [facility] Family History Problem Relation Age of Onset Stroke Mother Coronary artery disease Father Heart attack Father Family Status - Relation Status Age at Mother Father Level of Service:94425 [place] OFFICE/OUTPATIENT ESTABLISHED LOW MDM 20 MINNoFostoria City HospitalFoow-Upon 03-31-3474Nwafxv-[id number] Harman Mcleod 1940 Provider Department Center 09/12/2024 BRIAN FLANNERY [facility] [place] [facility] Family History Problem Relation Age of Onset Stroke Mother Coronary artery disease Father Heart attack Father Family Status - Relation Status Age at Mother Father Level of Service:19643 [place] OFFICE/OUTPATIENT ESTABLISHED LOW MDM 20 MIN Reason for Visit and Comments: Follow-up [999140] - Wound checkNormalUniversCleveland Clinic Akron GeneralOffice Visiton 83-12-2555Arngad-up [id number] Harman Mcleod 1940 Provider Department Center 09/02/2024 BRIAN FLANNERY [facility] [place] [facility] Family History Problem Relation Age of Onset Stroke Mother Coronary artery disease Father Heart attack Father Family Status - Relation Status Age at Mother Father Level of Service:56615 [place] OFFICE/OUTPATIENT ESTABLISHED SF MDM 10 MINNormal [facility] CenterOffice Visiton 80-53-3097Kfxeqs-up visit [id number] Harman Mcleod 1940 F Date Provider Department Center 08/27/20[address] 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 She was just [facility] for [facility] bleed. Eliquis and aspirin [...] disease) Cancer (CMS/HCC) CHF (congestive heart failure) ([facility]) Chronic kidney disease COPD (chronic obstructive pulmonary disease) ([facility]) Diabetes mellitus ([facility]) GI bleed Heart murmur Hyperlipidemia Hypertension PVD (peripheral vascular disease) ([facility]) PSH: Past Surgical History: Procedure Laterality Date CARDIAC CATHETERIZATION 12/15/2011, 08/23/2010, 12/30/2004, CORONARY STENT PLACEMENT HYSTERECTOMY 03/11/2005 VASCULAR SURGERY SH: Social Determinants of Health Tobacco Use: Medium Risk (06/20/2024) [facility] Patient History Smoking Tobacco Use: Former Smokeless Tobacco Use: Never Passive Exposure: Not on file Alcohol Use: Not on file Financial Resource Strain: Not on file Food Insecurity: Not on file Transportation Needs: Not on file Physical Activity: Not on file Stress: Not on file Social Connections: Not on file Intimate Partner Violence: Unknown (11/02/2023) [place] Safety & Environment Fear of Current or Ex-Partner: Not on file Emotionally Abused: Not on file Physically Abused: Not on file Sexually Abused: Not on file Physically or Sexually Abused: Not on file Depression: Not at risk (02/14/2023) Received from [facility] PHQ-2 PHQ-2 score: 0 Housing [...] mouth two times daily. fish oil concentrate ([place]-3) 120-180 mg capsule Take 1,000 mg by [...] mcg by mouth in (more content not included)...[facility] EastNURSNOTEon 08-12-2024 NURSNOTERN educated pt on d/c instructions. [...] wheeled off of unit with all of belongings.NormalMercy Health Willard HospitalConsultation Noteon 64-84-4373Ykdlbqowxurn Note [id number]#1.00TIFFNormalFisher Johns Hopkins HospitalVaginitis DNA Probeon 23-32-0817ChtrieyGhtvrztxMwzntgCWGOibpl St. Vincent Medical CenterComment on above:Result Comment: for Manjula sp. Method of testing is a DNA probe intended for detection and identification of Manjula species, Gardnerella vaginalis, and Trichomonas vaginalis nucleic acid in vaginal fluid specimens from patients with symptoms of vaginitis/vaginosis. Performed By: #### VAGP #### [address] [id number] Venue Manager: Estephanie SmithllaNegativeNormalSouthern [place] Medical CenterComment on above:Result Comment: for Gardnerella vaginalis Performed By: #### VAGP #### [address] [address] Venue Manager: Sanaz SmithhomonasNegativeTrinity Health System East CampusComment on above:Result Comment: for Trichomonas Vaginalis Performed By: #### VAGP #### [facility] [employer] [address] [place] [address] Venue Manager: Shaheen Smith.VAGINAL SWABOhioHealth Van Wert HospitalComment on above:Performed By: #### VAGP #### [address] [id number] Venue Manager: Fidel Hylton MDOPERATIVE REPORTon 26-58-0632XVALSMKLP REPORT [address] [address] OPERATIVE REPORT PATIENT NAME: HARMAN MCLEOD : 1940 MED REC NO: [id number] ROOM: ACCOUNT NO: [id number] ADMIT DATE: 03/06/2023 PROVIDER: Emma Garza MD DATE OF PROCEDURE: 03/06/2023 PREOPERATIVE DIAGNOSIS: Recurrent vaginal dysplasia. POSTOPERATIVE DIAGNOSIS: Recurrent vaginal dysplasia. OPERATION PERFORMED: Examination under anesthesia, carbon dioxide laser vaporization of vaginal dysplasia. COMPLICATIONS: None. BLOOD LOSS: Minimal. SURGEON: Emma Garza MD HOG WORKER: Mauri (resident). DISPOSITION: The patient to recovery room stable. SPECIMENS: No specimen sent to Pathology. OPERATIVE FINDINGS: The patient had a small 1-2 cm area of jaidwwpq-ba-dylbld dysplasia along the anterior vagina from 12 [...] entire procedure. EMMA GARZA MD CL/S_JAYLAH_01 Doc#: [id number] CC:NormalCleveland ClinicConsultation Noteon 02-19-2023 Consultation [id number]#1.00CD:127Ohio[facility]len[facility] HospitalConsultation Noteon 38-98-8141Clxwgslgbgtw Note [id number]#1.00CD:127Ohio[facility]'Bleness HospitalComment on above:Other Comment: MISSING PAGES CRRCULTURE URINEon 85-88-4958GXOWZQE URINECulture Observations: VERY LIGHT GROWTH OF MIXED GENITAL SAGE. NO POTENTIAL PATHOGENS SEEN.NormalMorrow County HospitalComment on above:Performed By: #### URCX ####[facility] [address] [place], [place] [address]FvMedardo Omid Mir RANDOM W/MICROSCOPICon 01-80-2811AAXXCQJNSGYGAMpolilfgSWUH SEENThe [facility] Comment on above:Performed By: #### HGB #### [facility] [address] [address] [address] Omid BowdenBilirubin Ql (U)NegativeNormalNEGATIVEMorrow County Hospital Comment on above:Performed By: #### HGB #### [facility] [address] [address] [address] Omid BowdenCASTNONE SEENNormalNONE SEENMorrow County HospitalComment on above:Performed By: #### HGB #### [facility] [address] [address] [address] Omid Sheaarity (U)CLEARNormalCLEARMorrow County HospitalComment on above: Performed By: #### HGB #### [facility] [address] [place] [address] Dr. Omid Serranolor (U)LT. YELLOWNormalYELLOWMorrow County HospitalComment on above:Performed By: #### HGB #### [facility] [address] [place] [address] Dr. Omid BowdenCrystals LM Nom (Urine sed)NONE SEENNormalNONE SEENMorrow County HospitalComment on above:Performed By: #### HGB #### [facility] [address] [place] [address] Dr. Anne ChangEpithelial cells LM Ql (Urine sed)RARENormalNONE SEEN /RAREMorrow County HospitalComment on above:Performed By: #### HGB #### [facility] [address] [place] [address] Dr. Omid BowdenGlucose Ql (U)NegativeNormalNEGATIVEMorrow County HospitalComment on above:Performed By: #### HGB #### [facility] [address] [address] [address] Omid BowdenHemoglobin Ql (U)NegativeNormalNEGATIVEMorrow County Hospital Comment on above:Performed By: #### HGB #### [facility] [address] [place] [address] Dr. Omid BowdenKetones Ql (U)NegativeNormalNEGATIVEMorrow County HospitalComment on above:Performed By: #### HGB #### [facility] [address] [address] [address] Omid BowdenLEUKOCYTESSMALLAbnormalNEGATIVEThe Grant HospitalComment on above:Performed By: #### HGB #### [facility] [address] [place] [address] Dr. Omid BowdenMUCOUSDARIEN SEENNormalNONE SEENMorrow County HospitalComment on above:Performed By: #### HGB #### [facility] [address] [place] [address] Dr. Omid BowdenNitrite Ql (U)NegativeNormalNEGATIVEThe [facility] HospitalComment on above:Performed By: #### HGB #### [facility] [address] [place] [address] Dr. Omid BowdenpH (U)6.0 [pH]Normal5-9The [facility] HospitalComment on above: Performed By: #### HGB #### [facility] [address] [place] [address] Dr. Omid BowdenWobvhVDR6-6Sjnhlo0-7Tdt Grant HospitalComment on above:Performed By: #### HGB #### [facility] [address] [place] [address] Dr. Omid BowdenSPEC GRAVITY<=1.986Rxvvkohi4.005-<=1.025[facility] Comment on above:Performed By: #### HGB #### [facility] [address] [place] [address] Dr. Omid Mir PROTEINNegativeNormalNEGATIVE/ TRACEThe [facility] Comment on above:Performed By: #### HGB #### [facility] [address] [place] [address] Dr. Omid Daybilinogen Qn (U)0.2 {Jose'U}/dLNormal0.2 - 1.0The [facility] HospitalComment on above:Performed By: #### HGB #### [facility] [address] [place] [address] Dr. Omid BowdenWBC0-2AbnormalNONE [facility] Medical CenterComment on above: Performed By: #### HGB #### [facility] [address] [place], [place] [address] Dr. Omid BowdenCreatinine [Mass/volume] in Serum or PlasmaOrdered By: Christiano Gonzales on 92-05-8548Rumfxcxpms [Mass/Vol]1.37 mg/dL0.60-1.20[facility] HospitalLaboratory - Chemistry and Chemistry - challengeOrdered By: Christiano Gonzales on 09-70-0285LEK/1.73 sq M.predicted MDRD (S/P/Bld) [Vol rate/Area]39.034 mL/min/{1.73_m2}[facility] HospitalNo Panel InformationOrdered By: Christiano Gonzales on 72-83-6331Adzrhgnp Creatinine Clearance (Chem31.71[facility]. Mary HospitalUrea nitrogen [Mass/volume] in Serum or PlasmaOrdered By: Christiano Gonzales on 76-74-7055Xrot nitrogen [Mass/Vol]35 mg/dL7-25[facility]lower Hospitalurgical Pathologyon 12-20-1324Surwruqp Pathology(NOTE) -- Diagnosis -- VAGINA, 12:00, BIOPSY: [...] SURGICAL PATHOLOGY CONSULTATION Patient Name: HARMAN MCLEOD [facility] Rec: [id number] Path Number: [id number] [employer] [facility] ANATOMIC PATHOLOGY [address] [place] [id number] NoTrinity Health SystemComment on above: Performed By: #### PPPVS #### [employer] [address] [place] [address] Venue Manager: Fidel Hylton [facility] Hospitalulatory Visit Summaryon 82-88-7024Uxnaxdyzzx Visit Summary HARMAN MCLEOD :1940 Visit Date:11/22/2022 [...] and diastolic (congestive) heart failure Atherosclerosis of [place] artery of extremity BMI 36.0-36.9,adult Brain stem [...] Rectal bleeding Stage 2 chronic kidney disease [facility] Surgery Office/Clinic Noteon 83-21-0248Zjihudj Surgery Office/Clinic NoteChief Complaint post operative follow [...] Jose Only if needed [address] [place] [address]- Additional Instructions: Problem List/Past Medical History Ongoing Acute combined systolic (congestive) and diastolic (congestive) heart failure Atherosclerosis of [place] artery of extremity BMI 36.0-36.9,adult Brain stem [...] Cigarettes, 0.5 per d (more content not included)...[facility]leness HospitalComment on above:Result Comment: Electronically Signed By: CHELSI CARDONA, Iliana Alvarez\Date and Time Signed: 11/22/22 15:17 EDTCovid-19 PCR ([facility]) on 99-91-1915VJXC-CoV-2 (COVID-19) RNA MARII+probe Ql (Unsp spec)Not detected NormalNOT DETECTEDThe [facility] HospitalComment on above:Result Comment: When diagnostic testing [...] for this test is supported by the [place] of Health and Human Service's declaration that [...] longer be used).Performed By: #### HGB #### [facility] [address] [address] [address] Omid Nair AND B AGon 84-45-6143SIROPVRVSHPMXMemorial Health System Marietta Memorial Hospitalment on above:Result Comment: Negative for Flu A protein angiten. Infection due to Flu A cannot be ruled out. FluA angiten in the sample may be below the detection limit of the test.Performed By: #### INFLUAB ####[facility] [address] [address]Dr. Omid BowdenINFLUBNEGHSEE Adams County HospitalComment on above:Result Comment: Negative for Flu B protein antigen. Infection due to Flu B cannot be ruled out. FluB antigen in the sample may be below the detection limit of the test.Performed By: #### INFLUAB ####[facility] [address] [address]Dr. Omid Rodarte A AGNegativeNormalNEGATIVE SEE COMMENTThe [facility] HospitalComment on above:Performed By: #### INFLUAB ####[facility] [address] [place], [place] [address]Dr. Omid Rodarte B AGNegativeNormalNEGATIVE SEE COMMENTThe [facility] Comment on above:Performed By: #### INFLUAB ####[facility] Yxsiox[address] [place], [place] [address]Dr. Omid BowdenAmbulatory Visit Summaryon 14-98-6385Quplyjvgvi Visit Summary HARMAN MCLEOD :1940 Visit Date:11/08/2022 [...] and diastolic (congestive) heart failure Atherosclerosis of [place] artery of extremity BMI 36.0-36.9,adult Brain stem [...] Rectal bleeding Stage 2 chronic kidney disease [facility] Surgery Office/Clinic Noteon 72-44-9866Nxsdzzo Surgery Office/Clinic NoteChief Complaint post operative follow [...] and diastolic (congestive) heart failure Atherosclerosis of [place] artery of extremity BMI 36.0-36.9,adult Brain stem [...] 09/09/2022 Family History Tran (more content not included)...[facility]leness HospitalComment on above:Result Comment: Electronically Signed By: CHELSI CARDONA, Iliana Ramirez\.br\Date and Time Signed: 11/08/22 14:22 ESTAmbulatory Visit Summaryon 41-49-1540Parodowqmh Visit Summary HARMAN MCLEOD :1940 Visit Date:11/04/2022 [...] CARDONA, Iliana Ramirez Where: General Surgery [facility] General Surgery Office/Clinic Noteon 90-53-8309Fnalcab Surgery Office/Clinic NoteChief Complaint bleeding from incision [...] and diastolic (congestive) heart failure Atherosclerosis of [place] artery of extremity BMI 36.0-36.9,adult Brain stem [...] Years., 09/09/2022 Family Histor (more content not included)...[facility] Comment on above:Result Comment: Electronically Signed By: CHELSI CARDONA, Iliana Castillo.veto\Date and Time Signed: 11/04/22 14:35 ESTUS HARRIET DOP LEG BILon 82-48-0648WU HARRIET DOP LEG BILEXAM: US HARRIET DOP [...] Electronically authenticated by: MIGUELITO TELLEZ Date: 2022-11-02 17:17[facility] HospitalPathology Noteon 50-01-1228Oykycfoel Note [id number]#1.00CD:127[facility]leness HospitalAmbulatory Visit Summaryon 67-59-2422Fzkmqvattg Visit Summary HARMAN MCLEOD :1940 Visit Date:10/25/2022 [...] Iliana GAGNON MD Where: General Surgery [facility]nikolai[facility] General Surgery Office/Clinic Noteon 42-07-7027Pnsckht Surgery Office/Clinic NoteChief Complaint post operative follow [...] and diastolic (congestive) heart failure Atherosclerosis of [place] artery of extremity BMI 36.0-36.9,adult Brain stem [...] Mother. Heart disease: Mo (more content not included)...[facility] HospitalComment on above:Result Comment: Electronically Signed By: CHELSI CARDONA, Iliana Alvarez\Date and Time Signed: 10/25/22 16:13 ESTOperative Reporton 08-15-7918Ehugodsnc [id number]#1.00CD:127 [facility] HospitalRAD - Ultrasound Reporton 92-14-1555IDY - Ultrasound [id number]#1.00CD:127[facility] HospitalNM SENTNL NODEon 65-69-1798TK SENTNL NODEUNIVERSITY [facility] MEDICINE LYMPHOSCINTIGRAPHY. HISTORY: Infiltrating duct [...] Electronically authenticated by: KRISTIN JAQUEZ Date: 2022-10-19 10:41[facility] GLUCOSEon 72-84-0655Gxcfggd [Mass/Vol]153 mg/dL Critically ubwt33-433Xpa Grant HospitalComment on above:Performed By: #### POCGLUC #### [facility] [address] [place] [address] Dr. Omid BowdenRAD - MISCon 33-16-7237OOH - MISC [id number]#1.00CD:127[facility] HospitalRAD - [id number]#1.00CD:127[facility] HospitalRAD - Ultrasound Reporton 73-59-0846TQV - Ultrasound Report [id number]#1.00CD:[address] [place], [place] [address]RAD - Ultrasound [id number]#1.00CD:127 [facility] HospitalUS BREAST SPECIMENon 10-47-5069FE BREAST SPECIMENPatient: HARMAN MCLEOD Exam Date: 10/19/2022 : 1940 Gender:F Ordering : DR ILIANA GAGNON . Admission #: [id number] Family : Order #: [id number] CLICK HERE TO VIEW EXAM RADIOLOGY REPORT PROCEDURE: US BREAST SPECIMEN COMPARISON: None. INDICATIONS: Specimen from breast FINDINGS: Breast specimen demonstrates inclusion of the targeted mass as well as the micro clip marker CONCLUSION: Targeted mass and micro clip marker included within the specimen Dictated by: Judson Bauman MD on 10/19/2022 at 11:46 Approved by: Judson Bauman MD on 10/19/2022 at 11:47T[facility]carawas HospitalUS GUIDE LOCAL BREAST RTon 98-23-1706DU GUIDE LOCAL BREAST RTPatient: HARMAN MCLEOD Exam Date: 10/19/2022 : 1940 Gender:F Ordering : DR ILIANA GAGNON . Admission #: [id number] Family : Order #: [id number] CLICK HERE TO VIEW EXAM RADIOLOGY REPORT [...] clip marker LOCATION: Right breast 9 NEEDLE: Club Pointsandeeps spring hook; 20 g by 5 cm needle and wire. MEDICATION: 6 cubic cm Superficial and deep buffered 1% lidocaine. COMPLICATIONS: None. CONCLUSION: Technically successful hookwire localization. Dictated by: Judson Bauman MD on 10/19/2022 at 09:04 Approved by: Judson Bauman MD on 10/19/2022 at 09:05[facility] SENTINEL NODEon 54-44-8318AP SENTINEL NODEEXAM: US SENTINEL NODE HISTORY: Infiltrating duct carcinoma COMPARISON: None. TECHNIQUE: Grayscale and color ultrasound FINDINGS: Grayscale and color ultrasound demonstrates a 1.6 x 0.8 cm lobular heterogeneous hypoechogenic mass at the 9:00 position. Associated microclip marker from prior biopsy IMPRESSION: Localization of a 1.6 cm right breast mass Electronically authenticated by: JUDSON BAUMAN Date: 2022-10-19 08:59NoGrand Lake Joint Township District Memorial HospitalRAD - MISCon 60-88-1498ZXF - [facility] [id number]#1.00CD:127[facility] AUTO DIFFon 32-87-3605XWRE #0.0 103/ulNormal0.0-0.1[facility] HospitalComment on above:Performed By: #### HGB #### [facility] [address] [place] [address] Dr. Omid Gonzalezphils/100 WBC (Bld)0.2 %Normal0.2-2.0[facility] Comment on above:Performed By: #### HGB #### [facility] [address] [place] [address] Dr. Omid Maldonado #0.0 103/ulNormal0.0-0.7The [facility] HospitalComment on above: Performed By: #### HGB #### [facility] [address] [place] [address] Dr. Omid Batesosinophils/100 WBC (Bld)0.3 %Critically low0.9-7.0The [facility] HospitalComment on above:Performed By: #### HGB #### [facility] [address] [place] [address] Dr. Omid Batesrythrocyte distribution width (RBC) [Ratio]13.7 %Gqsgac79.0-15.0 The Grant HospitalComment on above:Performed By: #### HGB #### [facility] [address] [place] [address] Dr. Omid BowdenHematocrit (Bld) [Volume fraction]39.6 %Ijnshu33.0-48.0The [facility] HospitalComment on above:Performed By: #### HGB #### [facility] [address] [place] [address] Dr. Omid BowdenHemoglobin (Bld) [Mass/Vol]12.3 g/gHVojfcc74.0-16.0The [facility] HospitalComment on above:Performed By: #### HGB #### [facility] [address] [place] [address] Dr. Omid Aceves #0.06 10e3/ulCritically high0.00-0.03[facility] Comment on above:Performed By: #### HGB #### [facility] [address] [place] [address] Dr. Omid BowdenIG %0.5 %Normal0.0-0.5The [facility] HospitalComment on above: Performed By: #### HGB #### [facility] [address] [place] [address] Dr. Omid WangMPH #2.9 103/ulNormal1.2-3.8The [facility] HospitalComment on above:Performed By: #### HGB #### [facility] [address] [place] [address] Dr. Omid Wangmphocytes/100 WBC (Bld)26.2 %Fgspil65.5-60.0The [facility] HospitalComment on above:Performed By: #### HGB #### [facility] [address] [place] [address] Dr. Omid Ogden DIFF REQNONormalThe [facility] HospitalComment on above: Performed By: #### HGB #### [facility] [address] [place] [address] Dr. Omid Hodgson (RBC) [Entitic mass]28.3 eiGkorfi02.7-34.0The [facility] HospitalComment on above:Performed By: #### HGB #### [facility] [address] [place] [address] Dr. Omid Hodgson (RBC) [Mass/Vol]31.1 g/oSWjxuvz88.9-35.2The [facility] HospitalComment on above:Performed By: #### HGB #### [facility] [address] [place] [address] Dr. Omid Hodgson (RBC) [Entitic vol]91.2 rKKistyh36.0-99.0The [facility] HospitalComment on above:Performed By: #### HGB #### [facility] [address] [place] [address] Dr. Omid Kaur #0.9 103/ulCritically high0.3-0.8ThBarney [facility]'s Medical Center Comment on above:Performed By: #### HGB #### [facility] [address] [place] [address] Dr. Omid Marquezocytes/100 WBC (Bld)8.3 %Normal1.7-12.0[facility] Comment on above:Performed By: #### HGB #### [facility] [address] [place] [address] Dr. Omid Moreno #7.0 103/ulCritically high1.4-6.5ThBarney Children's Medical Center Comment on above:Performed By: #### HGB #### [facility] [address] [place] [address] Dr. Omid Rizzoutrophils/100 WBC (Bld)64.5 %Srsrcr53.0-75.0The Opal HospitalComment on above:Performed By: #### HGB #### [facility] [address] [address] [address] Omid Mcdonaldlet mean volume (Bld) [Entitic vol]9.2 fLCritically low 9.5-13.5The [facility] HospitalComment on above:Performed By: #### HGB #### [facility] [address] [place] [address] Dr. Omid BowdenPLT346 103/vbWcywdb368-969Vgb [facility] HospitalComment on above: Performed By: #### HGB #### [facility] [address] [place] [address] Dr. Omid BowdenRBC4.34 106/ulNormal4.20-5.40The [facility] HospitalComment on above:Performed By: #### HGB #### [facility] [address] [place] [address] Dr. Omid BowdenWBC10.9 103/ulNormal4.0-11.0The [facility] HospitalComment on above:Performed By: #### HGB #### [facility] [address] [place] [address] Dr. Omid BowdenPROF CHEM 8 (BAS METB)on 23-13-2249Kakyd gap [Moles/Vol]11.0 mmol/LNormalThe [facility] HospitalComment on above:Performed By: #### LIPID, BMP #### [facility] [address] [place] [address] Dr. Omid BowdenCalcium [Mass/Vol]9.6 mg/dLNormal8.5-10.1[facility] Comment on above:Performed By: #### LIPID, BMP #### [facility] [address] [place] [address] Dr. Omid BowdenChloride [Moles/Vol]99 mmol/UIeylxo67-950FgpMorrow County Hospital Comment on above:Performed By: #### LIPID, BMP #### [facility] [address] [place] [address] Dr. Omid BowdenCO2 [Moles/Vol]32.0 mmol/CQfoyni65.0-32.0[facility] Comment on above:Performed By: #### LIPID, BMP #### [facility] [address] [place] [address] Dr. Omid BowdenCreatinine [Mass/Vol]1.03 mg/dLCritically high0.55-1.02The [facility] HospitalComment on above:Performed By: #### LIPID, BMP #### [facility] [address] [address] [address] Omid BatesGFR-AF PERUVIAN>60Normal>=60The [facility] HospitalComment on above:Performed By: #### LIPID, BMP #### [facility] [address] [place] [address] Dr. Omid BatesGFR-NON AF NMMCBAJF72 mL/min/1.45q6Yjguemomku low>=60The [facility] HospitalComment on above:Performed By: #### LIPID, BMP #### [facility] [address] [place] [address] Dr. Omid BowdenGlucose [Mass/Vol]94 mg/jQXevucb87-568MgvMorrow County Hospital Comment on above:Performed By: #### LIPID, BMP #### [facility] [address] [place] [address] Dr. mOid BowdenPotassium [Moles/Vol]4.0 mmol/LNormal3.5-5.1[facility] Comment on above:Performed By: #### LIPID, BMP #### [facility] [address] [place] [address] Dr. Omid BowdenSodium [Moles/Vol]138 mmol/FYovcck585-838Rdd [facility] Comment on above:Performed By: #### LIPID, BMP #### [facility] [address] [place] [address] Dr. Omid BowdenUrea nitrogen [Mass/Vol]28.0 mg/dLCritically high7.0-18.0The [facility] HospitalComment on above:Performed By: #### LIPID, BMP #### [facility] [address] [place] [address] Dr. Omid BowdenUrea nitrogen/Creatinine [Mass ratio]27.2 mg/mgNoGrand Lake Joint Township District Memorial HospitalComment on above:Performed By: #### LIPID, BMP #### [facility] [address] [place] [address] Dr. Omid BowdenPROTIMEon 18-74-9009OQM Coag (PPP) [Relative time]0.99 {INR} NormalThe [facility] HospitalComment on above:Performed By: #### HGB #### [facility] [address] [place] [address] Dr. Omid Damon GUIDELINESSEE BELOWTuscarawas HospitalComment on above:Result Comment: DESIRED INR: 2.0 - 3.0 CONDITIONS NOT LISTED BELOW 2.5 - 3.5 FOR PROSTHETIC HEART VALVE REPLACEMENT 2.5 - 3.5 RECURRENT THROMBOSIS Performed By: #### HGB #### [facility] [address] [place] [address] Dr. Omid BowdenPT Coag (PPP) [Time]10.5 sNormal9.0-11.6ThBarney Children's Medical Center Comment on above:Performed By: #### HGB #### [facility] [address] [place] [address] Dr. Omid Vera 88-22-0363fGGJ Coag (Bld) [Time]28.6 nHbfzht53.3-36.2[facility] HospitalComment on above:Performed By: #### HGB #### [facility] [address] [place] [address] Dr. Omid BowdenConsultation Noteon 52-66-5005Bnlklonsjach Note [id number]#1.00CD:127[facility] HospitalINSULINon 49-18-4445Yhshgca70.8 uIU/mLNormal2.6-24.9[facility] Comment on above:Performed By: #### LIPID, BMP #### [facility] [address] [place] [address] Dr. Omid BowdenGLYCOHEMOGLOBIN A1Con 16-31-6259ATM RECOMMENDATIONSEE BELOWNormal The [facility] HospitalComment on above:Result Comment: ADA RECOMMENDED LIMIT 4.0 - 6.0 ADA THERAPEUTIC TARGET < 7.0 ACTION SUGGESTED > 7.0Performed By: #### HGB #### [facility] [address] [address] [address] Omid BowdenGlucose [Mass/Vol]177 mg/dLNormalThe [facility] HospitalComment on above:Performed By: #### HGB #### [facility] [address] [address] [address] Omid BowdenHbA1c (Bld) [Mass fraction]7.8 %Critically high4.5-6.2The [facility] HospitalComment on above:Performed By: #### HGB #### [facility] [address] [address] [address] Omid BowdenPROF 14(COMP METB)on 44-19-8497Lqfkrpt [Mass/Vol]3.0 g/dL Critically low3.4-5.0The [facility] HospitalComment on above:Performed By: #### CMP ####[facility] [address] [address]Dr. Omid BowdenAlbumin/Globulin [Mass ratio]0.7 {ratio}NormalMorrow County Hospital Comment on above:Performed By: #### CMP ####[facility] [address] [address]Dr.Omid BowdenALP [Catalytic activity/Vol]73 U/LXvmjsl36-203Hnv [facility] HospitalComment on above:Performed By: #### CMP ####[facility] [address] [address]Dr. Omid BowdenALT [Catalytic activity/Vol]16 U/TPymwnj06-81Sms [facility] Comment on above:Performed By: #### CMP ####[facility] [address] [address]Dr.Omid BowdenAnion gap [Moles/Vol]11.3 mmol/LNormalThe [facility] HospitalComment on above:Performed By: #### CMP ####[facility] [address] [address]Dr. Yilan ChangAST [Catalytic activity/Vol]14 U/LCritically got95-55Rqe [facility] HospitalComment on above:Performed By: #### CMP ####[facility] [address] [place], [place] [address]Dr.Yilan ChangBilirubin [Mass/Vol]0.3 mg/dLNormal0.2-1.0The [facility] HospitalComment on above:Performed By: #### CMP ####[facility] [address] [place], [place] [address]Dr.Yilan ChangCalcium [Mass/Vol]9.5 mg/dLNormal8.5-10.1The [facility] HospitalComment on above:Performed By: #### CMP ####[facility] G[address] [place], [place] [address]Dr.Yilan ChangChloride [Moles/Vol]102 mmol/EEvmawx03-714Rrc [facility] HospitalComment on above:Performed By: #### CMP ####[facility] [address] [place], [place] [address]Dr.Yilan ChangCO2 [Moles/Vol]31.1 mmol/NFojmxc13.0-32.0The [facility] HospitalComharbor beach community hospital on above:Performed By: #### CMP ####[facility] [address] [place], [place] [address]Dr.Yilan ChangCreatinine [Mass/Vol]1.28 mg/dLCritically high0.55-1.02The [facility] HospitalComment on above:Performed By: #### CMP ####[facility] [address] [place], [place] [address]Dr.Yilan ChangEGFR-AF JHELYHUB67 mL/min/1.73m2 Critically low>=60The [facility] HospitalComment on above:Performed By: #### CMP ####[facility] [address] [place], [place] [address]Dr. Yilan ChangEGFR-NON AF HIUHTUSJ51 mL/min/1.25w2Bfmaaxgjby low>=60The [facility] HospitalComment on above:Performed By: #### CMP ####[facility] [address] [address]Dr.Yilan ChangGlobulin (S) [Mass/Vol]4.4 g/dLNormalThBarney Children's Medical CenterComment on above:Performed By: #### CMP ####[facility] [address] [place], [place] [address]Dr.Yilan ChangGlucose [Mass/Vol]103 mg/pOCgejus32-286Roo [facility] Comment on above:Performed By: #### CMP ####[facility] [address]oygdetef[address] [place], [place] [address]Dr.Yilan ChangPotassium [Moles/Vol]4.4 mmol/LNormal3.5-5.1The [facility] HospitalComment on above:Performed By: #### CMP ####[facility] [address] [place], [place] [address]Dr. Yilan ChangProtein [Mass/Vol]7.4 g/dLNormal6.4-8.2The [facility] HospitalComment on above:Performed By: #### CMP ####[facility] [address] [place], [place] [address]Dr.Yilan ChangSodium [Moles/Vol]140 mmol/LNormal 136-145The [facility] HospitalComment on above:Performed By: #### CMP ####[facility] [address]akrixoyl[address] [place], [place] [address]Dr.Yilan ChangUrea nitrogen [Mass/Vol]27.0 mg/dLCritically high7.0-18.0The [facility] HospitalComment on above:Performed By: #### CMP ####[facility] Re[address]ii[address] [place], [place] [address]Dr.Yilan ChangUrea nitrogen/Creatinine [Mass ratio] 21.1 mg/mgNoGrand Lake Joint Township [facility]Com[facility] on above:Performed By: #### CMP ####[facility] Oacterud[address] [place], [place] [address]Dr. Aixalan ChangFormson 27-76-2518Qojrz [id number]#1.00CD:127NoCincinnati Shriners HospitalConsent for Procedure/Surgeryon 03-23-8611Nibxggv for Procedure/Surgery [id number]#1.00CD:127NoCincinnati Shriners HospitalConsultation Noteon 84-68-6896Yugscguxcdzy Note [id number]#1.00CD:127NormMer[address] Joseph Warren HospitalConsultation Noteon 72-36-2562Nrlhnekcrpko Note [id number]#1.00CD:127[facility] HospitalCovid-19 PCR (CVDTB)on 47-13-4407FIRT-CoV-2 (COVID-19) RNA MARII+probe Ql (Unsp spec)Not detectedNormalNOT DETECTEDThe Grant HospitalComment on above: Result Comment: When diagnostic [...] for this test is supported by the [place] of Health and Human Service's declaration that [...] no longer be used).Performed By: #### CVDTBH ####[facility] [address] [place], [place] [address]VrMedardo WhyteUENZA A AND B AGon 51-58-8145DMPQERCIUSYRE BELOWNormal The Grant HospitalComment on above:Result Comment: Negative for Flu A protein angiten. Infection due to Flu A cannot be ruled out. FluA angiten in the sample may be below the detection limit of the test.Performed By: #### INFLUAB ####[facility] [address] [place] [address]Dr. Omid ChangINFLUBNEGHSEE [facility] County HospitalComment on above:Result Comment: Negative for Flu B protein antigen. Infection due to Flu B cannot be ruled out. FluB antigen in the sample may be below the detection limit of the test.Performed By: #### INFLUAB ####[facility] [address] [place] [address]Dr. Omid ChangINFLUENZA A AGNegativeNormalNEGATIVE SEE COMMENTThe Grant HospitalComment on above:Performed By: #### INFLUAB ####[facility] [address] [place], [place] [address]Dr. Omid ChangINFLUENZA B AGNegativeNormalNEGATIVE SEE COMMENTThe [facility] Comment on above:Performed By: #### INFLUAB ####[facility] [address]rh[address]of[address] [place], [place] [address]Dr. Omid BowdenLIPID PROFILEon 09-16-2022 CHOL-HDL RATIO NORMSEE [facility] County HospitalComment on above:Result Comment: 3.3 - 4.4 LOW RISK 4.4 - 7.1 AVERAGE RISK 7.1 - 11.0 MODERATE RISK >11.0 HIGH RISKPerformed By: #### LIPID, BMP #### [facility] [address] [place] [address] Dr. Omid BowdenCholesterol [Mass/Vol]210 mg/dLCritically high<=200The [facility] HospitalComment on above:Performed By: #### LIPID, BMP #### [facility] [address] [place] [address] Dr. Omid BowdenCholesterol in HDL [Mass/Vol]49 mg/wXIncykt76-86Knq Grant HospitalComment on above:Performed By: #### LIPID, BMP #### [facility] [address] [place] [address] [address] Omid BowdenCholesterol in LDL [Mass/Vol]84.2 mg/dLTuscarawas HospitalComment on above:Performed By: #### LIPID, BMP #### [facility] [address] [place] [address] Dr. Omid Greeresterol.total/Cholesterol in HDL [Mass ratio]4.3 {ratio} NormalThe Grant HospitalComment on above:Performed By: #### LIPID, BMP #### [facility] [address] [place] [address] Dr. Omid Black NORMAL> or = 60 mg/dl - LOW CARDIOVASCULAR RISK <40 mg/dl - HIGH CARDIOVASCULAR RISKTuscarawas HospitalComharbor beach community hospital on above:Performed By: #### LIPID, BMP #### [facility] [address] [place] [address] Dr. Omid Stewart CALC NORMALSEE BELOWTuscarawas HospitalComment on above:Result Comment: <100 mg/dl OPTIMAL 100 - 129 mg/dl NEAR OR ABOVE OPTIMAL 130 - 159 mg/dl BORDERLINE HIGH 160 - 189 mg/dl HIGH >190 mg/dl VERY HIGH Performed By: #### LIPID, BMP #### [facility] [address] [place] [address] Dr. Omid BowdenTriglyceride [Mass/Vol]384 mg/dLCritically high<=150[facility] on above:Performed By: #### LIPID, BMP #### [facility] [address] [place] [address] Dr. Omid BowdenVLDL CALC76.8 mg/dLNoGrand Lake Joint Township District Memorial HospitalComment on above: Performed By: #### LIPID, BMP #### [facility] [address] [place] [address] Dr. Omid BowdenPROF CHEM 8 (BAS METB)on 58-39-9952Rzswa gap [Moles/Vol]10.8 mmol/LNormalMorrow County HospitalComment on above:Performed By: #### LIPID, BMP #### [facility] [address] [place] [address] Dr. Omid BowdenCalcium [Mass/Vol]8.8 mg/dLNormal8.5-10.1The [facility] Comment on above:Performed By: #### LIPID, BMP #### [facility] [address] [place] [address] Dr. Omid BowdenChloride [Moles/Vol]98 mmol/BGaxivy81-870Zdj [facility] Comment on above:Performed By: #### LIPID, BMP #### [facility] [address] [place] [address] Dr. Omid BowdenCO2 [Moles/Vol]34.5 mmol/LCritically high21.0-32.0The [facility] HospitalComment on above:Performed By: #### LIPID, BMP #### [facility] [address] [place] [address] Dr. Omid BowdenCreatinine [Mass/Vol]1.17 mg/dLCritically high0.55-1.02The [facility] HospitalComment on above:Performed By: #### LIPID, BMP #### [facility] [address] [place] [address] Dr. Anne ChangEGFR-AF YNLTXQGS27 mL/min/1.58e3Kidlrrpffu low>=60The [facility] HospitalComment on above:Performed By: #### LIPID, BMP #### [facility] [address] [place] [address] Dr. Omid BatesGFR-NON AF IRJKHFSV16 mL/min/1.70z2Uheijaptjm low>=60The [facility] HospitalComment on above:Performed By: #### LIPID, BMP #### [facility] [address] [place] [address] Dr. Omid BowdenGlucose [Mass/Vol]193 mg/dLCritically rumw24-135Uie Grant HospitalComment on above:Performed By: #### LIPID, BMP #### [facility] [address] [place] [address] Dr. Omid BowdenPotassium [Moles/Vol]3.3 mmol/LCritically low3.5-5.1The [facility] HospitalComment on above:Performed By: #### LIPID, BMP #### [facility] [address] [place] [address] [address] Omid BowdenSodium [Moles/Vol]140 mmol/OPqnupf650-670Nla [facility] Comment on above:Performed By: #### LIPID, BMP #### [facility] [address] [place] [address] [address] Omid Lawson nitrogen [Mass/Vol]31.0 mg/dLCritically high7.0-18.0The [facility] HospitalComment on above:Performed By: #### LIPID, BMP #### [facility] [address] [place] [address] [address] Omid Lawson nitrogen/Creatinine [Mass ratio]26.5 mg/mgNoGrand Lake Joint Township District Memorial HospitalComment on above:Performed By: #### LIPID, BMP #### [facility] [address] [place] [address] [address] Omid BowdenFacesheeton 02-46-9853Hrzobccoo [id number]#1.00CD:[address] [place], [place] [address]Consultation Noteon 12-66-4377Xfcqezqvofac Note [id number]#1.00CD:[address] [place] [address] Note-Physicianon 91-44-5851LN Note-Physician [id number]#1.00CD:[address] [place], [place] [address]Lab Reportson 97-79-0973Sic Reports [id number]#1.00CD:[address] [place], [place] [address]Lab [id number]#1.00CD:[address] [place], [place] [address]Physician Referralon 64-44-7638Xuajtyjrn Referral [id number]#1.00CD:127NormalPike Community HospitalC. DIFF PCRon 2C. DIFFICILE PCRNegativeNormalNEGATIVEThe Grant HospitalComment on above:Performed By: #### CDIFPOC ####[facility] [address] [place], [place] [address]Dr. Omid ChangCBC AUTO DIFF on 78-41-4738WSYX #0.0 103/ulNormal0.0-0.1The [facility] HospitalComment on above: Performed By: #### CBC ####[facility] Itxoxoltqe[address] [place], [place] [address]Dr.Yilan ChangBasophils/100 WBC (Bld)0.3 %Normal 0.2-2.0The Grant HospitalComment on above:Performed By: #### CBC ####[facility] Rj[address] [place], [place] [address]Dr.Yilan ChangEO # 0.5 103/ulNormal0.0-0.7The [facility] HospitalComment on above:Performed By: #### CBC ####[facility] Uvoluntord[address] [place], [place] [address]Dr. Yilan ChangEosinophils/100 WBC (Bld)3.2 %Normal0.9-7.0[facility] Comment on above:Performed By: #### CBC ####[facility] K[address]ss[address] [place], [place] [address]Dr.Aixalan ChangErythrocyte distribution width (RBC) [Ratio]14.1 %Xibbaz71.0-15.0The [facility] HospitalComment on above: Performed By: #### CBC ####[facility] Xzlses[address]aux[address] [place], [place] [address]Dr.Omid ChangHematocrit (Bld) [Volume fraction]36.1 % Yoaefw55.0-48.0The [facility] HospitalComment on above:Performed By: #### CBC ####[facility] [address] [place], [place] [address]Dr. Omid ChangHemoglobin (Bld) [Mass/Vol]11.7 g/dLCritically low12.0-16.0The [facility] HospitalComment on above:Performed By: #### CBC ####[facility] [address] [place] [address]Dr.Omid BowdenIG #0.08 10e3/ulCritically high0.00-0.03The [facility] HospitalComment on above:Performed By: #### CBC ####[facility] [address]itskbqkt[address] [place] [address]DrRadha BowdenIG %0.5 %Normal0.0-0.5The [facility]al HospitalComment on above: Performed By: #### CBC ####[facility] Emdrwcvacq[address] [place], [place] [address]Dr.Omid WangMPH #1.2 103/ulNormal1.2-3.8The [facility] HospitalComment on above:Performed By: #### CBC ####[facility] W[address] [place], [place] [address]Dr.Omid Wanghocytes/100 WBC (Bld)7.5 %Critically low20.5-60.0The [facility] HospitalComment on above: Performed By: #### CBC ####[facility] Izs[address]aqssi[address] [place], [place] [address]Dr.Omid BowdenMANUAL DIFF REQNONormalThe Grant HospitalComment on above:Performed By: #### CBC ####[facility] [address] [place], [place] [address]Dr.Omid BowdenBROOKLYN [facility] (RBC) [Entitic mass]29.2 thLgjbla04.7-34.0The [facility] HospitalComment on above: Performed By: #### CBC ####[facility] Aqseev[address]wij[address] [place], [place] [address]Dr.Omid BowdenHC (RBC) [Mass/Vol]32.4 g/dLNormal 29.9-35.2The [facility] HospitalComment on above:Performed By: #### CBC ####[facility] Z[address]xc[address]melvi[address] [place], [place] [address]Dr. Omid BowdenV (RBC) [Entitic vol]90.0 aLLuclii98.0-99.0[facility] Comment on above:Performed By: #### CBC ####[facility] P[address]ibuxmrz[address] [place], [place] [address]Dr.Omid MarquezO #1.0 103/ulCritically high0.3-0.8The [facility] HospitalComment on above:Performed By: #### CBC ####[facility] V[address]mlhej[address] [place], [place] [address]Dr. Omid BowdenMonocytes/100 WBC (Bld)6.8 %Normal1.7-12.0[facility] Comment on above:Performed By: #### CBC ####[facility] [address]is[address]ld[address] [place], [place] [address]DrRadha RizzoUT #12.5 103/ulCritically high1.4-6.5The [facility] HospitalComment on above:Performed By: #### CBC ####[facility] R[address]fvadpti[address] [place], [place] [address]Dr. Omid ChangNeutrophils/100 WBC (Bld)81.7 %Critically high43.0-75.0The [facility] HospitalComment on above:Performed By: #### CBC ####[facility] Jyjfxg[address]zz[address] [place], [place] [address]Dr.Omid BowdenPlatelet mean volume (Bld) [Entitic vol]8.9 fLCritically low9.5-13.5ThBarney Children's Medical Center Comment on above:Performed By: #### CBC ####[facility] [address]cef[address] [place], [place] [address]Dr.Omid BowdenPLT252 103/vfDwjulp770-877Yhx Grant HospitalComment on above:Performed By: #### CBC ####[facility] [address]wsmjtge[address] [place], [place] [address]DrRadha BowdenRBC4.01 106/ul Critically low4.20-5.40The [facility] HospitalComment on above:Performed By: #### CBC ####[facility] [address] [place], [place] [address]DrMedardo Anne GylueYGP15.3 103/ulCritically high4.0-11.0The [facility] HospitalComment on above:Performed By: #### CBC ####[facility] [address] [place], [place] [address]NxDr.Yilan Turner 16-66-0367Jmic [Mass/Vol]59.0 ug/vTBivcbl90.0-170.0The [facility] HospitalComment on above:Performed By: #### HGB #### [facility] [address] [place], [place] [address] Dr. Omid BowdenMAMMEvelia POST BIOPSY RIGHTon 81-73-4008WNSIR POST BIOPSY RIGHT Patient: HARMAN MCLEOD Exam Date: 08/19/2022 : 1940 Gender:F Ordering : DR MATEUS PERRY . Admission #: [id number] Family : Order #: [id number] CLICK HERE TO VIEW EXAM This report [...] by: Judson Bauman MD on 09/06/2022 at 09:57[facility] PROTIMEon 16-76-4916VPX Coag (PPP) [Relative time]0.99 {INR}NormalMorrow County HospitalComment on above:Performed By: #### PT, PTT ####[facility] [address] [place], [place] [address]MwDr. Omid BowdenINR GUIDELINES SEE BELOWNormalThBarney Children's Medical CenterComment on above:Result Comment: DESIRED INR: 2.0 - 3.0 CONDITIONS NOT LISTED BELOW 2.5 - 3.5 FOR PROSTHETIC HEART VALVE REPLACEMENT 2.5 - 3.5 RECURRENT THROMBOSISPerformed By: #### PT, PTT ####[facility] [address] [place], [place] [address]Ye. Yilan ChangPT Coag (PPP) [Time]10.7 sNormal9.0-11.6The [facility] HospitalComment on above:Performed By: #### PT, PTT ####[facility] [address] [place], [place] [address]Es. Yilan ChangPTTon 34-37-7462jNQA Coag (Bld) [Time]26.0 oPmmdgc91.3-36.2The [facility] HospitalComment on above:Performed By: #### PT, PTT ####[facility] [address] [place] [id number]. Yilan ChangUS VAC ASST BX BRST RT W CLIPon 18-26-3976TX VAC ASST BX BRST RT W CLIPPatient: HARMAN MCLEOD Exam Date: 08/19/2022 : 1940 Gender:F Ordering : DR MATEUS PERRY . Admission #: [id number] Family : Order #: [id number] CLICK HERE TO VIEW EXAM This report [...] by: Judson Bauman MD on 09/06/2022 at 09:55[facility] CULTURE URINEon 73-00-6568RFKZHLN URINEIsolate 1 Enterococcus faecalis 100,000 cfu/mL of [...] >=16 R F Nitrofurantoin <=16 S FNormalThe Grant HospitalComment on above:Performed By: #### URCX ####[facility] [address] [place] [address]Dr. Omid Chaves ADILIA ADMITon 04-00-5464ZP [Catalytic activity/Vol] 128 U/MOwilay06-620Bku [facility] HospitalComment on above:Performed By: #### LIPID, BMP #### [facility] [address] [place] [address] [address] Omid Sawyer.MB [Mass/Vol]2.88 ng/mLNormal<=3.60[facility] Comment on above:Performed By: #### LIPID, BMP #### [facility] [address] [place] [address] [address] Omid GarzaTROP24.1 pg/mLNormal4.0-51.3The [facility] HospitalComment on above:Result Comment: CUT-OFF POINTS HAVE BEEN ESTABLISHED BASED ON THE FOURTH UNIVERSAL DEFINITIONS OF MYOCARDIAL INFARCTION. THE UPPER REFERENCE LIMIT (URL) OF TROPONIN, DEFINED THE 99TH PERCENTILE OF cTnI DISTRIBUTION IN A REFERENCE POPULATION, HAS BEEN CONFIRMED THE DECISION THRESHOLD FOR ND DIAGNOSIS.Performed By: #### LIPID, BMP #### [facility] [address] [place] [address] Dr. Omid Allen61 ng/mLNormal9-82The [facility] HospitalComment on above: Performed By: #### LIPID, BMP #### [facility] [address] [place] [address] Dr. Omid Tolliver AUTO DIFFon 92-82-4166UNND #0.0 103/ulNormal0.0-0.1The [facility] HospitalComment on above:Performed By: #### HGB #### [facility] [address] [place] [address] Dr. Omid BowdenBasophils/100 WBC (Bld)0.4 %Normal0.2-2.0[facility] Comment on above:Performed By: #### HGB #### [facility] [address] [place] [address] Dr. Omid Maldonado #0.3 103/ulNormal0.0-0.7The [facility] HospitalComment on above: Performed By: #### HGB #### [facility] [address] [place] [address] Dr. Omid Batesosinophils/100 WBC (Bld)2.6 %Normal0.9-7.0[facility] Comment on above:Performed By: #### HGB #### [facility] [address] [place] [address] Dr. Omid Batesrythrocyte distribution width (RBC) [Ratio]14.1 %Pzngru44.0-15.0 The [facility] HospitalComment on above:Performed By: #### HGB #### [facility] [address] [place] [address] Dr. Omid BowdenHematocrit (Bld) [Volume fraction]35.5 %Critically low36.0-48.0 The Grant HospitalComment on above:Performed By: #### HGB #### [facility] [address] [place] [address] [address] Omid BowdenHemoglobin (Bld) [Mass/Vol]11.6 g/dLCritically low12.0-16.0The [facility] HospitalComment on above:Performed By: #### HGB #### [facility] [address] [place] [address] Dr. Omid Aceves #0.06 10e3/ulCritically high0.00-0.03The [facility] Comment on above:Performed By: #### HGB #### [facility] [address] [place] [address] Dr. Omid Aceves %0.6 %Critically high0.0-0.5The [facility] HospitalComment on above:Performed By: #### HGB #### [facility] [address] [place] [address] Dr. Omid Mosley #3.4 103/ulNormal1.2-3.8The [facility] HospitalComment on above:Performed By: #### HGB #### [facility] [address] [place] [address] Dr. Omid Bradleyhocytes/100 WBC (Bld)35.5 %Cvdcvb81.5-60.0The [facility] HospitalComment on above:Performed By: #### HGB #### [facility] [address] [place] [address] Dr. Omid ConcepcionUAL DIFF REQNONormalThe Grant HospitalComment on above: Performed By: #### HGB #### [facility] [address] [place] [address] Dr. Omid Hodgson (RBC) [Entitic mass]29.5 xxQhucnu18.7-34.0The [facility] HospitalComment on above:Performed By: #### HGB #### [facility] [address] [place] [address] Dr. Omid Hodgson (RBC) [Mass/Vol]32.7 g/nTUufnhh59.9-35.2The [facility] HospitalComment on above:Performed By: #### HGB #### [facility] [address] [place] [address] [address] Omid HodgsonV (RBC) [Entitic vol]90.3 mCVhmnwo57.0-99.0The [facility] HospitalComment on above:Performed By: #### HGB #### [facility] [address] [place] [address] Dr. Omid Kaur #1.0 103/ulCritically high0.3-0.8The [facility] Comment on above:Performed By: #### HGB #### [facility] [address] [place] [address] Dr. Omid Marquezocytes/100 WBC (Bld)10.5 %Normal1.7-12.0[facility] Comment on above:Performed By: #### HGB #### [facility] [address] [place] [address] Dr. Omid Moreno #4.8 103/ulNormal1.4-6.5The [facility] HospitalComment on above:Performed By: #### HGB #### [facility] [address] [place] [address] Dr. Omid Rizzoutrophils/100 WBC (Bld)50.4 %Rkkrna05.0-75.0The [facility] HospitalComment on above:Performed By: #### HGB #### [facility] [address] [place] [address] Dr. Omid Mcdonaldlet mean volume (Bld) [Entitic vol]9.1 fLCritically low 9.5-13.5The [facility] HospitalComment on above:Performed By: #### HGB #### [facility] [address] [place] [address] Dr. Omid BowdenPLT276 103/qfYtgqpw377-838Bzu [facility] HospitalComment on above: Performed By: #### HGB #### [facility] [address] [place] [address] Dr. Omid BowdenRBC3.93 106/ulCritically low4.20-5.40The Opal HospitalComment on above:Performed By: #### HGB #### [facility] [address] [place] [address] [address] Omid BowdenWBC9.5 103/ulNormal4.0-11.0[facility] HospitalComment on above: Performed By: #### HGB #### [facility] [address] [place] [address] [address] Anne ChangEAshley URINE PROFILEon 67-90-0047Iyrvcawrm Ql (U)NegativeNormal NEGATIVEMorrow County HospitalComment on above:Performed By: #### GABRIEL OTTOR ####[facility] [address] [place] [id number]. Omid ChangClarity (U)CLEARNormalCLEARMorrow County HospitalComment on above: Performed By: #### GABRIEL OTTOR ####[facility] [address] [place] [address]Dr. Omid ChangColor (U)LT. YELLOWNormalYELLOWMorrow County HospitalComment on above:Performed By: #### ISSAC OTTO ####[facility] [address] [place] [address]DrMedardo Trejo A micrscopic examination will be performed if indicated.NormalThe Grant HospitalComment on above:Performed By: #### GABRIEL OTTOR ####[facility] [address] [place] [id number]. Omid ChangGlucose Ql (U) NegativeNormalNEGATIVEMorrow County HospitalComment on above:Performed By: #### GABRIEL OTTOR ####[facility] [address] [place] [address]DrMedardo Anne ChangHemoglobin Ql (U)NegativeNormalNEGATIVEMercy Hospital on above:Performed By: #### CLARITA ERUR ####[facility] [address]tr[address] [place] [id number]. Aixalan ChangKetones Ql (U) NegativeNormalNEGATIVEBlanchard Valley Health System Bluffton Hospitalue HospitalComment on above:Performed By: #### GABRIEL OTTOR ####[facility] [address] [place], [place] [address]Us. Omid BowdenLEUKOCYTESTRACEAbnormalNEGATIVEThe Opal HospitalComment on above:Performed By: #### GABRIEL OTTOR ####[facility] [address] [place], [place]Dr. Omid BowdenNitrite Ql (U)NegativeNormal NEGATIVEThe Opal HospitalComment on above:Performed By: #### GABRIEL OTTOR ####[facility] [address] [place] [address]Dr. Omid BowdenpH (U)6.0 [pH]Normal5-9The [facility] HospitalComment on above: Performed By: #### GABRIEL OTTOR ####[facility] [address] [place] [address]Dr. Omid BowdenSPEC GRAVITY1.523Wsouvl6.005-<=1.025The [facility] HospitalComment on above:Performed By: #### ISSCA OTTO ####[facility] [address] [place] [address]Dr. Omid BowdenUA PROTEINNegativeNormalNEGATIVE/ TRACEThe Opal HospitalComment on above: Performed By: #### ISSAC OTTO ####[facility] [address] [place] [id number]. Omid BowdenUR MICRO INDINDICATEDNormalThe Opal HospitalComment on above:Performed By: #### GABRIEL OTTOR ####[facility] [address] [place] [address]Dr. Omid BowdenUrobilinogen Qn (U)0.2 {Jose'U}/dLNormal0.2 - 1.0The [facility] HospitalComment on above: Performed By: #### GABRIEL OTTOR ####[facility] [address] [place] [address]DrMedardo Cerda BLD IMMUNO SCREENon 24-71-1405NAXRKI BLOODNegativeNormalNEGATIVEThe Grant HospitalComment on above:Performed By: #### OBSCRN #### [facility] [address] [place] [address] [address] Omid BowdenPROF CHEM 8 (BAS METB)on 13-64-9366Pxpxp gap [Moles/Vol]5.5 mmol/LNormalThe [facility] HospitalComment on above:Performed By: #### LIPID, BMP #### [facility] [address] [place] [address] Dr. Omid BowdenCalcium [Mass/Vol]8.6 mg/dLNormal8.5-10.1[facility] Comment on above:Performed By: #### LIPID, BMP #### [facility] [address] [place] [address] Dr. Omid BowdenChloride [Moles/Vol]103 mmol/EBvttdq01-231Otc [facility] Comment on above:Performed By: #### LIPID, BMP #### [facility] [address] [place] [address] Dr. Omid BowdenCO2 [Moles/Vol]31.8 mmol/GYwicdp65.0-32.0[facility] Comment on above:Performed By: #### LIPID, BMP #### [facility] [address] [place] [address] Dr. Omid BowdenCreatinine [Mass/Vol]0.99 mg/dLNormal0.55-1.02The [facility] HospitalComment on above:Performed By: #### LIPID, BMP #### [facility] [address] [place] [address] Dr. Anne ChangEGFR-AF PERUVIAN>60Normal>=60The [facility] HospitalComment on above:Performed By: #### LIPID, BMP #### [facility] [address] [place] [address] Dr. Omid BatesGFR-NON AF GMPHWFBF06 mL/min/1.91w7Loumsqxuvi low>=60The [facility] HospitalComment on above:Performed By: #### LIPID, BMP #### [facility] [address] [place] [address] [address] Omid BowdenGlucose [Mass/Vol]112 mg/dLCritically emzi61-915Suy [facility] on above:Performed By: #### LIPID, BMP #### [facility] [address] [place] [address] [address] Omid BowdenPotassium [Moles/Vol]3.3 mmol/LCritically low3.5-5.1The [facility] HospitalComment on above:Performed By: #### LIPID, BMP #### [facility] [address] [place] [address] [address] Omid BowdenSodium [Moles/Vol]137 mmol/XIpguhw939-499Qxv [facility] Comment on above:Performed By: #### LIPID, BMP #### [facility] [address] [place] [address] [address] Omid BowdenUrea nitrogen [Mass/Vol]20.0 mg/dLCritically high7.0-18.0The [facility] on above:Performed By: #### LIPID, BMP #### [facility] [address] [place] [address] [address] Omid Lawson nitrogen/Creatinine [Mass ratio]20.2 mg/mgNoGrand Lake Joint Township District Memorial HospitalComharbor beach community hospital on above:Performed By: #### LIPID, BMP #### [facility] [address] [place] [address] [address] Omid Busch MICROSCOPIC ONLYon 50-45-4482LZFEXTDADMNBZVxgawkmqGPMU SEEN The [facility] HospitalComhar[facility] beach community hospital on above:Performed By: #### CLARITA ERUR ####[facility] [address] [place] [id number]. Omid Crockettcteria identified Cx Nom (U)INDICATEDTuscarawas Hospital Comment on above:Performed By: #### CLARITA, ERUR ####[facility] [address] [place], [place]Dr. Omid Odom SEEN NormalNONE SEENThe Lindy HospitalComment on above:Performed By: #### CLARITA, ERUR ####[facility] [address] [place] [id number]. Omid KalCrystals LM Nom (Urine sed)NONE SEENNormalNONE SEENThe Grant HospitalComment on above:Performed By: #### CLARITA, ERUR ####[facility] [address] [place] [phone]. Omid ChangEpithelial cells LM Ql (Urine sed)FEWAbnormalNONE SEEN /RAREThe Grant HospitalComment on above:Performed By: #### CLARITA ERUR ####[facility] [address] [place] [id number]. Omid BowdenMUCOUSNONE SEENNormalNONE SEENThe Grant HospitalComment on above:Performed By: #### CLARITA ERUR ####[facility] [address] [place] [id number]. Omid BowdenRBC0-2 Normal0-2The [facility] HospitalComment on above:Performed By: #### CLARITA ERUR ####[facility] [address] [place] [id number]. Omid BowdenWsjjmZMC77-00QtczlhkcBTBL SEENThe Grant HospitalComment on above: Performed By: #### CLARITA, ERUR ####[facility] [address] [place] [id number]. Omid BowdenXR CHEST 1 Von 82-36-7593WU CHEST 1 V CHEST X-RAY HISTORY: Chest pain COMPARISON: 04/06/2021 TECHNIQUE: 1 view chest is submitted for review. FINDINGS: The lungs are adequately expanded without evidence for acute infiltrate or effusion. The cardiac silhouette is enlarged. Pulmonary vascularity is unremarkable. Osseous structures are within expected limits for patients age. . IMPRESSION: Cardiomegaly. Electronically authenticated by: HILL BAILON Date: 2022-08-14 00:46NoGrand Lake Joint Township District Memorial HospitalCovid-19 PCR (CVDTBH)on 17-66-2502EERC-CoV-2 (COVID-19) RNA MARII+probe Ql (Unsp spec)Not detectedNormalNOT DETECTEDThe [facility] Comment on above:Result Comment: When diagnostic [...] for this test is supported by the [employer] of Health and Human Service's declaration that [...] longer be used).Performed By: #### CVDTBH #### [facility] [address] [place] [address] Dr. Omid BowdenMG MAMM RT DIAG FUon 50-72-3644XD MAMM RT DIAG FUPatient: HARSHA HARMAN L. Exam Date: 08/08/2022 : 1940 Gender:F Ordering : DR MATEUS PERRY . Admission #: [id number] Family : Order #: [id number] CLICK HERE TO VIEW EXAM RADIOLOGY REPORT [...] uterine cancer at age 39. LOCATION: [facility] BREAST COMPOSITION: Scattered areas fibroglandular density. [...] by: Alfonso George M.D. on 08/08/2022 at 15:28T[facility]carawas HospitalPROF CHEM 8 (BAS METB)on 55-76-8194Tchlc gap [Moles/Vol]9.3 mmol/LNormal The Grant HospitalComment on above:Performed By: #### BMP #### [facility] [address] [address] [address] Omid BowdenCalcium [Mass/Vol]8.1 mg/dLCritically low8.5-10.1The Grant HospitalComment on above:Performed By: #### BMP #### [facility] [address] [place] [address] Dr. Omid BowdenChloride [Moles/Vol]100 mmol/OPsydpu21-095QzzMorrow County Hospital Comment on above:Performed By: #### BMP #### [facility] [address] [address] [address] Omid BowdenCO2 [Moles/Vol]31.9 mmol/FYpoguv37.0-32.0[facility] Comment on above:Performed By: #### BMP #### [facility] [address] [address] [address] Omid BowdenCreatinine [Mass/Vol]1.25 mg/dLCritically high0.55-1.02The [facility] HospitalComment on above:Performed By: #### BMP #### [facility] [address] [address] [address] Omid BatesGFR-AF FTHRXUVY56 mL/min/1.05d6Vnnpyoslmc low>=60The [facility] HospitalComment on above:Performed By: #### BMP #### [facility] [address] [address] [address] Omid BatesGFR-NON AF QHCXOCZR86 mL/min/1.53h3Rhgxwgleiq low>=60The [facility] HospitalComment on above:Performed By: #### BMP #### [facility] [address] [address] [address] Omid BowdenGlucose [Mass/Vol]215 mg/dLCritically tgyh25-211Wxu Grant HospitalComment on above:Performed By: #### BMP #### [facility] [address] [place] [address] Dr. Omid BowdenPotassium [Moles/Vol]3.2 mmol/LCritically low3.5-5.1The [facility] HospitalComment on above:Performed By: #### BMP #### [facility] [address] [place] [address] Dr. Omid BowdenSodium [Moles/Vol]138 mmol/XUqfnqf403-965Zvk [facility] Comment on above:Performed By: #### BMP #### [facility] [address] [place] [address] Dr. Omid BowdenUrea nitrogen [Mass/Vol]32.0 mg/dLCritically high7.0-18.0The [facility] HospitalComment on above:Performed By: #### BMP #### [facility] [address] [place] [address] Dr. Omid Lawson nitrogen/Creatinine [Mass ratio]25.6 mg/mgNormalThe Grant HospitalComment on above:Performed By: #### BMP #### [facility] [address] [place] [address] Dr. Omid BowdenUS BREAST RIGHT LIMITEDon 12-52-0436QF BREAST RIGHT LIMITED Patient: HARMAN MCLEOD Exam Date: 08/08/2022 : 1940 Gender:F Ordering : DR MATEUS PERRY . Admission #: [id number] Family : Order #: [id number] CLICK HERE TO VIEW EXAM RADIOLOGY REPORT [...] uterine cancer at age 39. LOCATION: [facility] BREAST COMPOSITION: Scattered areas fibroglandular density. [...] by: Alfonso George M.D. on 08/08/2022 at 15:28NoGrand Lake Joint Township District Memorial HospitalCALCIUMon 33-78-1843Npehwqz [Mass/Vol]8.9 mg/dLNormal8.5-10.1The [facility] HospitalComment on above:Performed By: #### HGB #### [facility] [address] [place] [address] Dr. Omid VuINEon 16-82-3529Dqesonorlb [Mass/Vol]1.19 mg/dLCritically high0.55-1.02The [facility] HospitalComment on above:Performed By: #### HGB #### [facility] [address] [place], [place] [address] Dr. Anne ChangEGFR-AF AXLAJLDS80 mL/min/1.48a8Outwxnvyfo low>=60The [facility] HospitalComment on above:Performed By: #### HGB #### [facility] [address] [place], [place] [address] Dr. Anne ChangEGFR-NON AF SEYHSRKL50 mL/min/1.55k1Pwuordddrz low>=60The [facility] HospitalComment on above:Performed By: #### HGB #### [facility] [address] [place], [place] [address] Dr. Omid BowdenMG MAMM SCREEN 3D DAVID CADon 15-71-9366PS MAMM SCREEN 3D DAVID CAD Patient: HARMAN MCLEOD Exam Date: 07/19/2022 : 1940 Gender:F Ordering : DR MATEUS PERRY . Admission #: [id number] Family : Order #: [id number] CLICK HERE TO VIEW EXAM RADIOLOGY REPORT [...] uterine cancer at age 39. LOCATION: [facility] BREAST COMPOSITION: Scattered areas fibroglandular density. [...] by: Judson Bauman MD on 07/20/2022 at 07:33[facility]carawas HospitalXR DEXA BONE DENSITYon 79-05-0549FJ DEXA BONE DENSITYEXAMINATION: XR DEXA BONE DENSITY, [...] Electronically authenticated by: JUDSON BAUMAN Date: 2022-07-19 20:17[facility]carawas HospitalCALCIUM, IONIC (POC)on 59-52-8842HIL Ionized Calcium1.21 mmol/L 1.15 - 1.33 mmol/LBON MOUNTAIN VIEW CAMPUSShelfX HEALTHCHLORIDE (POC)on 05-15-6127Vpdqheze [Moles/Vol]103 mmol/L98 - 107 mmol/LBON MOUNTAIN VIEW CAMPUSFamilyticCreatinine W/GFR Point of Careon 76-27-9076Mruktievar [Mass/Vol]0.93 mg/dL0.51 - 1.19 mg/dLBON MOUNTAIN VIEW CAMPUSShelfX [facility] LIMAeGFR, POCmL/min/1.97f1DTP [facility] MED[facility] CENTERComment on above: Effective Jun 13, [...] affects renal tubular secretion. Lactic Acid, POCon 27-54-3272JIP Lactic Acid1.56 mmol/LHigh0.56 - 1.39 mmol/LBON MOUNTAIN VIEW CAMPUSShelfX [facility] LIMANo Panel Informationon 34-35-8205Lepdryxqpqqdzx and review of laboratory resultsAbnormalBON INDIAN HEALTH SERVICE HOSPITALPO Glucose Fingerstickon 95-72-2305Cyikicn [Mass/Vol]135 mg/jWPrew65 - 105 mg/dL [facility] HOSPITALInterpretation and review of laboratory resultsAbnormal BON [facility] MED[facility] CENTERBON PRE[facility] A[facility]UM MEDICAL CENTERPOCT Glucoseon 71-45-2888Glvursc [Mass/Vol]147 mg/jYGxah85 - 100 mg/dLBON TRIHEALTHCT urea (BUN)on 82-23-1454Kwrm nitrogen [Mass/Vol]20 mg/dL8 - 26 mg/dLBON [facility] POTASSIUM (POC)on 70-92-2165Jkwkztuym [Moles/Vol]3.7 mmol/L3.5 - 4.5 mmol/LBON PREMI[facility]ALTH ATRIUM MEDICAL CENTERSODIUM (POC)on 19-04-2617Sbnfha [Moles/Vol]141 mmol/L138 - 146 mmol/LBON [facility] ATRIUM MEDICAL CENTERPROF CHEM 8 (BAS METB)on 64-82-1867Pkbmw gap [Moles/Vol]9.0 mmol/LNormalThe [facility] HospitalComment on above:Performed By: #### BMP ####[facility] [address] [place] [address]Dr.Yilan ChangCalcium [Mass/Vol]9.0 mg/dLNormal8.5-10.1The [facility] HospitalComment on above:Performed By: #### BMP ####[facility] [address] [place], [place] [address]Dr.Yilan ChangChloride [Moles/Vol]98 mmol/HLabtuh97-452Mgb [facility] HospitalComment on above:Performed By: #### BMP ####[facility] [address] [place] [address]Dr.Yilan ChangCO2 [Moles/Vol]33.2 mmol/LCritically high21.0-32.0The [facility] HospitalComment on above:Performed By: #### BMP ####[facility] [address] [place] [address]Dr.Yilan ChangCreatinine [Mass/Vol]1.32 mg/dLCritically high0.55-1.02The [facility] HospitalComment on above:Performed By: #### BMP ####[facility] [address] [place] [address]Dr.Yilan ChangEGFR-AF TFYCWIZG68 mL/min/1.73m2 Critically low>=60The [facility] HospitalComment on above:Performed By: #### BMP ####[facility] [address] [place], [place] [address]Dr. Yilan ChangEGFR-NON AF QSSFVCME14 mL/min/1.09v4Psnqgkezso low>=60The [facility] HospitalComment on above:Performed By: #### BMP ####[facility] [address] [place], [place] [address]Dr.Yilan ChangGlucose [Mass/Vol]220 mg/dLCritically ofie39-471Cxs [facility] HospitalComment on above: Performed By: #### BMP ####[facility] [address] [place], [place] [address]Dr.Yilan ChangPotassium [Moles/Vol]3.2 mmol/L Critically low3.5-5.1The [facility] HospitalComment on above:Performed By: #### BMP ####[facility] [address] [place], [place] [address]Dr. Yilan ChangSodium [Moles/Vol]137 mmol/QIvwqpk743-859Vcd [facility] HospitalComment on above:Performed By: #### BMP ####[facility] [address] [place], [place] [address]Dr.Yilan ChangUrea nitrogen [Mass/Vol]31.0 mg/dL Critically high7.0-18.0The [facility] HospitalComment on above:Performed By: #### BMP ####[facility] Uorticatdp[address] [place], [place] [address]Dr. Yilan ChangUrea nitrogen/Creatinine [Mass ratio]23.5 mg/mgNormalThe [facility] HospitalComment on above:Performed By: #### BMP ####[facility] [address]of[address] [place], [place] [address]Dr.Yilan ChangECHOCARDIO M/2D COMPLETEon 10-82-5479BTVHPLNLUT M/2D COMPLETEPatient: HARMAN MCLEOD Exam Date: 04/12/2022 : 1940 Gender:F Ordering : [facility] Admission #: [id number] Family : Order #: [id number] CLICK HERE TO VIEW EXAM ECHOCARDIOGRAM REPORT [...] by: Bertram Keyes M.D. on 04/12/2022 at 19:15NormalMorrow County HospitalPROF CHEM 8 (BAS METB)on 60-94-8990Mljso gap [Moles/Vol]12.4 mmol/L NormalMorrow County HospitalComment on above:Performed By: #### BMP ####[facility] [address] [place], [place] [address]Dr.Omid Bowden Calcium [Mass/Vol]9.1 mg/dLNormal8.5-10.1The [facility] HospitalComment on above: Performed By: #### BMP ####[facility] [address] [place] [address]Dr.Yilan ChangChloride [Moles/Vol]100 mmol/LNormal 98-107The [facility] HospitalComment on above:Performed By: #### BMP ####[facility] [address] [place], [place] [address]Dr.Yilan ChangCO2 [Moles/Vol]33.0 mmol/LCritically high21.0-32.0The [facility] HospitalComment on above:Performed By: #### BMP ####[facility] [address] [place], [place] [address]Dr.Yilan ChangCreatinine [Mass/Vol]1.15 mg/dL Critically high0.55-1.02The [facility] HospitalComment on above:Performed By: #### BMP ####[facility] [address] [place], [place] [address]Dr.Yilan ChangEGFR-AF NQEEHYJK31 mL/min/1.17s4Jvyluhqogi low>=60The [facility] HospitalComment on above:Performed By: #### BMP ####[facility] [address]yl[address] [place], [place] [address]Dr.Yilan ChangEGFR-NON AF PTWTNZDF80 mL/min/1.54n7Oxhlsmkyax low>=60The [facility] HospitalComment on above: Performed By: #### BMP ####[facility] [address]iz[address] [place], [place] [address]Dr.Yilan ChangGlucose [Mass/Vol]167 mg/dLCritically hwfy80-387Ezt [facility] HospitalComment on above:Performed By: #### BMP ####[facility] [address] [place], [place] [address]Dr. Yilan ChangPotassium [Moles/Vol]3.4 mmol/LCritically low3.5-5.1The [facility] HospitalComment on above:Performed By: #### BMP ####[facility] [address] [place], [place] [address]Wz.Omid ChangSodium [Moles/Vol]142 mmol/AVlsmhg155-710Igm [facility] HospitalComment on above: Performed By: #### BMP ####[facility] [address] [place], [place] [address]Ss.Aixalan ChangUrea nitrogen [Mass/Vol]23.0 mg/dL Critically high7.0-18.0The [facility] HospitalComment on above:Performed By: #### BMP ####[facility] [address] [place], [place] [address]Xn. Omid ChangUrea nitrogen/Creatinine [Mass ratio]20.0 mg/mgTuscarawas HospitalComment on above:Performed By: #### BMP ####[facility] [address] [place], [place] [address]Xe.Omid TiwariMATIC COVID-19 ANTIGENon 24-79-9620ETV [facility] Comment on above:Result Comment: This test [...] revoked sooner.Performed By: #### LIPID, BMP #### [facility] [address] [place] [address] [address] Omid Gonzales-CoV-2 (COVID-19) RNA MARII+probe Ql (Unsp spec)Positive Critically abnormalNEGATIVEThe Grant HospitalComment on above:Performed By: #### LIPID, BMP #### [facility] [address] [place] [address] Dr. Omid BowdenHEMOGLOBINon 13-30-8734Mzoncfcsne (Bld) [Mass/Vol]12.3 g/dLNormal 12.0-16.0The [facility] HospitalComment on above:Performed By: #### HGB #### [facility] [address] [place] [address] Dr. Omid Godinez 45-56-3934Smhyejzafku peptide B (Bld) [Mass/Vol]598.0 pg/mL Normal<=1,800.0The [facility] HospitalComment on above:Performed By: #### LIPID, BMP #### [facility] [address] [place] [address] Dr. Omid BowdenPROF CHEM 8 (BAS METB)on 88-24-0463Qjlwq gap [Moles/Vol]11.9 mmol/LNormalThe [facility] HospitalComment on above:Performed By: #### LIPID, BMP #### [facility] [address] [place] [address] Dr. Omid BowdenCalcium [Mass/Vol]9.1 mg/dLNormal8.5-10.1[facility] Comment on above:Performed By: #### LIPID, BMP #### [facility] [address] [place] [address] Dr. Omid BowdenChloride [Moles/Vol]98 mmol/NWwress26-284Nzd [facility] Comment on above:Performed By: #### LIPID, BMP #### [facility] [address] [place] [address] Dr. Omid BowdenCO2 [Moles/Vol]33.2 mmol/LCritically high21.0-32.0The [facility] HospitalComment on above:Performed By: #### LIPID, BMP #### [facility] [address] [place] [address] Dr. Omid BowdenCreatinine [Mass/Vol]1.28 mg/dLCritically high0.55-1.02The [facility] HospitalComment on above:Performed By: #### LIPID, BMP #### [facility] [address] [address] [address] Anne ChangEGFR-AF QBTAEOCK36 mL/min/1.04e8Urmwgvqchm low>=60The [facility] HospitalComment on above:Performed By: #### LIPID, BMP #### [facility] [address] [address] [address] Anne ChangEGFR-NON AF RZBDQBBW29 mL/min/1.10m7Oouncbvmjv low>=60The [facility] HospitalComment on above:Performed By: #### LIPID, BMP #### [facility] [address] [place] [address] [address] Omid BowdenGlucose [Mass/Vol]182 mg/dLCritically rkac03-429Eud [facility] HospitalComment on above:Performed By: #### LIPID, BMP #### [facility] [address] [address] [address] Omid BowdenPotassium [Moles/Vol]3.1 mmol/LCritically low3.5-5.1The [facility] HospitalComment on above:Performed By: #### LIPID, BMP #### [facility] [address] [address] [address] Omid BowdenSodium [Moles/Vol]140 mmol/TFgdwmi144-603Wfk [facility] Comment on above:Performed By: #### LIPID, BMP #### [facility] [address] [address] [address] Omid BowdenUrea nitrogen [Mass/Vol]30.0 mg/dLCritically high7.0-18.0The [facility] HospitalComment on above:Performed By: #### LIPID, BMP #### [facility] [address] [place] [address] Dr. Omid BowdenUrea nitrogen/Creatinine [Mass ratio]23.4 mg/mgNormalThe [facility] HospitalComment on above:Performed By: #### LIPID, BMP #### [facility] [address] [place] [address] [address] Omid BowdenXR CHEST 2 Von 00-69-2133ZR CHEST 2 VEXAMINATION: XR CHEST 2 V [...] Electronically authenticated by: ALFONSO GEORGE Date: 2022-02-09 11:[address] [place], [place] [address]No Panel Informationon 94-18-7698Sgrxp HealthPOCT Glucoseon 51-62-9433Ethhvti [Mass/Vol]196 mg/kTNkbd52 - 100 mg/dLBlanchard Valley Health [facility] [employer] Interpretation and review of laboratory resultsAbnormalHolmes County Joel Pomerene Memorial HospitalPOTASSIUM (POC)on 75-87-8591Jrxdmqzjs [Moles/Vol]3.7 mmol/L3.5 - 4.5 mmol/LMmercy hospitaly Health TYPE AND SCREENon 63-04-2160XCQ/RhPositiveHolmes County Joel Pomerene Memorial HospitalArm Band NumberBE [id number] [facility] HealthExpiration Date12/16/2021,2359[facility] Virtual Event BagsHolmes County Joel Pomerene Memorial HospitalEKG 12 lead Ordered By: Dennis Garcia on 95-62-2345Dlusww Kayl08EZWHyekp Health Work Phone: p Jspl26xuyzshwFhkvd Health Work Phone: p-R Qmoacupc424 [employer] Work Phone: Q-T Ktevnznj707 [employer] Work Phone: QRS Xdnabrcm878 [facility] Work Phone: QTc Calculation (Yaritza)488 [employer] Work Phone: r Dndh30pbmckflEtahg Health Work Phone: T Yfdz539cpddyybTofom Health Work Phone: Ventricular Kium10IEPHcbnt Health Work Phone: [facility] Geaug[facility] Medical CenterInterface [employer]olog[employer], [employer] Work Phone: eKG 12 leadon 21-96-9781Ikwbk rhythm with Premature atrial complexes Left bundle branch block Abnormal ECG When compared with ECG of 12-MAY-2021 12:39, T wave inversion now evident in Inferior leadsMHPN STV Dennis Kauffman MD - 12/07/2021 Sinus rhythm with Premature atrial complexes Left bundle branch block Abnormal ECG When compared with ECG of 12-MAY-2021 12:39, T wave inversion now evident in Inferior leadsHolmes County Joel Pomerene Memorial Hospital Work Phone: cbc auto differentialon 93-85-1863Gfmizkxw Eos #0.13 [facility] HospitalAbsolute Immature Granulocyte0.12[facility] Memorial HospitalAbsolute Lymph #3.18 [facility] HospitalAbsolute [place] #1.22HighHolmes County Joel Pomerene Memorial HospitalBasophils (Bld) [#/Vol]0.05 10*3/uLHolmes County Joel Pomerene Memorial HospitalBasophils/100 WBC (Bld)0 %0 - 2 %[facility] HospitalEosinophils/100 WBC (Bld)1 %1 - 4 %[facility] Memorial HospitalHematocrit (Bld) [Volume fraction]38.4 %36.3 - 47.1 %[facility] Memorial HospitalHemoglobin.gastrointestinal spec 1 Ql (Stl)12.2 g/dL11.9 - 15.1 g/dLHolmes County Joel Pomerene Memorial HospitalImmature granulocytes/100 WBC (Bld)1 %[address] Interpretation and review of laboratory resultsAbnormalHolmes County Joel Pome[facility] Memorial Hospital Lymphocytes/100 WBC (Bld)25 %24 - 43 %[facility] HospitalH (RBC) [Entitic mass]29.9 pg25.2 - 33.5 pgPremier Health Miami Valley HospitalHC (RBC) [Mass/Vol]31.8 g/dL28.4 - 34.8 g/dLPremier Health Miami Valley HospitalV (RBC) [Entitic vol]94.1 fL82.6 - 102.9 fLHolmes County Joel Pomerene Memorial HospitalMonocytes/100 WBC (Bld)10 %3 - 12 %[facility] HospitalNRBC Automated0.00.0 per 100 WBCHolmes County Joel Pomerene Memorial Hospital Platelet distribution width (Bld) [Ratio]14.5 %High11.8 - 14.4 %[facility] Platelet mean volume (Bld) [Entitic vol]10.1 fL8.1 - 13.5 fLHolmes County Joel Pomerene Memorial Hospital Platelets (Bld) [#/Vol]266 10*3/uLMer HealthRBC (Bld) [#/Vol]4.08 10*6/uL3.95 - 5.11 m/uLBlanchard Valley Health System [facility] HealthRBC (Bld) [#/Vol]ANISOCYTOSIS PRESENTHolmes County Joel Pomerene Memorial Hospital Segmented neutrophils/100 WBC (Bld)63 %36 - 65 %[facility] Memorial HospitalSegs Absolute7.88 [facility] HospitalWBC (Bld) [#/Vol]12.6 10*3/uLHighRiver Falls Area Hospital Comprehensive Metabolic Panel w/ Reflex to MGon 20-17-5992Gmocrqx [Mass/Vol]3.7 g/dL3.5 - 5.2 g/dLBlanchard Valley Health System [facility] HealthAlbumin/Globulin [Mass ratio]1.1 {ratio}[facility] HospitalALP (Bld) [Catalytic activity/Vol]93 U/L35 - 104 U/LMercy HealthALT [Catalytic activity/Vol]12 U/L5 - 33 U/LMercy HealthAnion gap [Moles/Vol]14 mmol/L9 - 17 mmol/LMercy HealthAST [Catalytic activity/Vol]12 U/L<32[facility] Bilirubin [Mass/Vol]0.25 mg/dLLow0.3 - 1.2 mg/dLBlanchard Valley Health System [facility] HealthCalcium [Mass/Vol] 9.1 mg/dL8.6 - 10.4 mg/dLBlanchard Valley Health System [facility] HealthChloride [Moles/Vol]95 mmol/LLow98 - 107 mmol/LMercy HealthCO2 [Moles/Vol]30 mmol/L20 - 31 mmol/LMercy HealthCreatinine [Mass/Vol]1.07 mg/dLHigh0.50 - 0.90 mg/dLBlanchard Valley Health [facility] HealthFree PSA/Total PSA [Mass fraction]7.2 g/dL6.4 - 8.3 g/dLBlanchard Valley Health System [facility] HealthGFR Morzkwix23 mL/minLow>60 [facility] HealthGFR Non- Xdebdjzj01 mL/minLow>60[facility] HealthGFR/1.73 sq M.predicted MDRD (S/P/Bld) [Vol rate/Area][facility] HospitalComment on above:Average GFR for 70 or more years old: 75 mL/min/1.73sq m Chronic Kidney Disease: <60 mL/min/1.73sq m Kidney failure: <15 mL/min/1.73sq m eGFR calculated using average adult body mass. Additional eGFR calculator available at: http://www.[employer]/multiple_crcl_2012.htm Glucose [Mass/Vol]188 mg/yOLial28 - 99 mg/dLBlanchard Valley Health System [facility] HealthInterpretation and review of laboratory resultsAbnormalMer HealthPotassium [Moles/Vol]3.3 mmol/L Low3.7 - 5.3 mmol/LMercy HealthSodium [Moles/Vol]139 mmol/L135 - 144 mmol/LMercy HealthUrea nitrogen (BldV) [Mass/Vol]22 mg/dL8 - 23 mg/dLMercy Health Defiance Hospital HealthMagnesiumon 80-58-9789Xkmioxfin [Mass/Vol]1.6 mg/dL1.6 - 2.6 mg/dLRiver Falls Area HospitalNo Panel Informationon 46-75-4684Sf acute process. [facility] CONSOLIDATEDEXAMINATION: TWO XRAY VIEWS OF THE [...] The osseous structures are without acute process. [facility] Kael Black MD - 12/06/2021 EXAMINATION: [...] without acute process. IMPRESSION: No acute process. [employer] Phone: radiology Study observation (narrative)[employer] Phone: No Panel InformationOrdered By: Kael Freeman on 93-96-9598UupusNetaplan Phone: Creatinine W/GFR Point of CareOrdered By: Kin Abarca on 52-47-5879Ixwknaokor [Mass/Vol]0.89 mg/dL0.51 - 1.19 mg/dLNetaplan Phone: GFR Non->60>60 mL/minUniversity Hospitals Geauga Medical CenterApptio Phone: GFR/1.73 sq M.predicted MDRD (S/P/Bld) [Vol rate/Area] mL/min/{1.73_m2}>60 mL/minUniversity Hospitals Geauga Medical CenterApptio Phone: GFR/1.73 sq M.predicted MDRD (S/P/Bld) [Vol rate/Area] [employer] Phone: comment on above:Average GFR for 70 or more years old: 75 mL/min/1.73sq m Chronic Kidney Disease: <60 mL/min/1.73sq m Kidney failure: <15 mL/min/1.73sq m eGFR calculated using average adult body mass. Additional eGFR calculator available at: http://www.[employer]/multiple_crcl_2012.htm No Panel InformationOrdered By: Kin Abarca on 23-35-2301Yjadm Health Work Phone: pOC Glucose FingerstickOrdered By: Kin Abarca on 64-10-0660Iuioknr [Mass/Vol]163 mg/yNTbvu67 - 105 mg/dLUniversity Hospitals Geauga Medical CenterApptio Phone: Interpretation and review of laboratory results AbnormalUniversity Hospitals Geauga Medical CenterApptio Phone: [facility] CenterApptio Phone: pOCT GlucoseOrdered By: Kin Abarca on 06-15-2021 Glucose [Mass/Vol]186 mg/lPDerb81 - 100 mg/dLUniversity Hospitals Geauga Medical CenterApptio Phone: Interpretation and review of laboratory results AbnormalUniversity Hospitals Geauga Medical CenterApptio Phone: pOTASSIUM (POC)Ordered By: Kin Abarca on 06-15-2021 Potassium [Moles/Vol]4.5 mmol/L3.5 - 4.5 mmol/LMmercy hospitaly [employer] Phone: eKG 12 leadOrdered By: Latonia Burks on 05-13-2021 Atrial Rjkn10BPWFvmzaReactful Phone: p [facility]eqcngfxGh[facility]x [facility] Work Phone: p-R Teatafsw428 [facility] Norman[facility]act[facility] Phone: Q-T Qmyuiphn781 [facility] Norman[facility] Phone: QRS Pwkxnyap411 [facility] NormanMYOMO Work Phone: QTc Calculation (Bazett)532 [facility] Work Phone: r Siny95unxtnhvFhwyd Health Work Phone: T Zwxx678yikejcuHubqz Health Work Phone: Ventricular Gnpu61QSFOtamiReactful Phone: sinus rhythm with Premature atrial complexes Left bundle branch block Abnormal ECG No previous ECGs available [facility] Phone: edi, pn Incoming Ekg Results From [facility] [place] - 05/13/2021 1:30 PM EDT Sinus rhythm with Premature atrial complexes Left bundle branch block Abnormal ECG No previous ECGs availableUniversity Hospitals Geauga Medical CenterApptio Phone: [facility] Phone: basic Metabolic Panel w/ Reflex to MGOrdered By: Latonia Burks on [id number] gap [Moles/Vol]13 mmol/L9 - 17 mmol/LMmercy hospitaly [employer] Work Phone: calcium [Mass/Vol]9.4 mg/dL8.6 - 10.4 mg/dLUniversity Hospitals Geauga Medical CenterApptio Phone: chloride [Moles/Vol]102 mmol/L98 - 107 mmol/LMmercy hospitaly [employer] Phone: cO2 [Moles/Vol]28 mmol/L20 - 31 mmol/LMmercy hospitaly [employer] Phone: creatinine [Mass/Vol]0.94 mg/dLHigh0.50 - 0.90 mg/dL [facility] Phone: GFR >60>60 mL/minUniversity Hospitals Geauga Medical CenterApptio Phone: GFR Non- Ytukgvgs19 mL/minLow>60[facility] CenterApp[facility] Phone: GFR/1.73 sq M.predicted MDRD (S/P/Bld) [Vol rate/Area] [facility] Phone: comment on above:Average GFR for 70 or more years old: 75 mL/min/1.73sq m Chronic Kidney Disease: <60 mL/min/1.73sq m Kidney failure: <15 mL/min/1.73sq m eGFR calculated using average adult body mass. Additional eGFR calculator available at: http://www.[employer]/multiple_crcl_2012.htm GFR/1.73 sq M.predicted MDRD (S/P/Bld) [Vol rate/Area]NOT REPORTEDUniversity Hospitals Geauga Medical CenterApptio Phone: Glucose [Mass/Vol]119 mg/bYZnbf20 - 99 mg/dLUniversity Hospitals Geauga Medical CenterApptio Phone: Interpretation and review of laboratory results AbnormalUniversity Hospitals Geauga Medical CenterApptio Phone: potassium [Moles/Vol]4.0 mmol/L3.7 - 5.3 mmol/LMmercy hospitaly [employer] Phone: sodium [Moles/Vol]143 mmol/L135 - 144 mmol/LMercy [employer] Work Phone: Urea nitrogen (BldV) [Mass/Vol]18 mg/dL8 - 23 mg/dL [employer] Phone: Urea nitrogen/Creatinine (Bld) [Mass ratio]NOT REPORTEDUniversity Hospitals Geauga Medical CenterApptio Phone: [facility] Phone: cBC auto differentialOrdered By: Latonia Burks on 08-75-4976Mfvxhjdr Eos #0.26[facility] Center[facility] Phone: absolute Immature Granulocyte0.04[facility] CenterApp[facility] Phone: absolute Lymph #3.26[facility] CenterApp[facility] Phone: absolute [place] #0.84[facility] Center[facility] Phone: basophils (Bld) [#/Vol]0.05 10*3/uLUniversity Hospitals Geauga Medical CenterApptio Phone: basophils/100 WBC (Bld)1 %0 - 2 %[employer] Phone: differential TypeNOT REPORTEDUniversity Hospitals Geauga Medical CenterApptio Phone: eosinophils/100 WBC (Bld)3 %1 - 4 %[employer] Phone: Hematocrit (Bld) [Volume fraction]36.9 %36.3 - 47.1 % [employer] Phone: Hemoglobin.gastrointestinal spec 1 Ql (Stl)11.2 g/dL Low11.9 - 15.1 g/dLUniversity Hospitals Geauga Medical CenterApptio Phone: Immature granulocytes/100 WBC (Bld)0 %0[facility] CenterApp[facility] Phone: Interpretation and review of laboratory results AbnormalUniversity Hospitals Geauga Medical CenterApptio Phone: lymphocytes/100 WBC (Bld)32 %24 - 43 %[employer] Phone: MCH (RBC) [Entitic mass]28.3 pg25.2 - 33.5 pgUniversity Hospitals Geauga Medical CenterInterface Biologics, Inc. Work Phone: MCHC (RBC) [Mass/Vol]30.4 g/dL28.4 - 34.8 g/dLUniversity Hospitals Geauga Medical CenterApptio Phone: [phone] (RBC) [Entitic vol]93.2 fL82.6 - 102.9 fLUniversity Hospitals Geauga Medical CenterApptio Phone: [phone]/100 WBC (Bld)8 %3 - 12 %[employer] Phone: NRBC Automated0.00.0 per 100 WBCNetaplan Phone: [phone] distribution width (Bld) [Ratio]13.8 %11.8 - 14.4 %[employer] Phone: [phone] EstimateNOT REPORTEDUniversity Hospitals Geauga Medical CenterApptio Phone: [phone] mean volume (Bld) [Entitic vol]9.5 fL8.1 - 13.5 fLUniversity Hospitals Geauga Medical CenterApptio Phone: [phone] (Bld) [#/Vol]310 10*3/uLNetaplan Phone: [phone] (Bld) [#/Vol]3.96 10*6/uL3.95 - 5.11 m/[place] Phone: [phone] (Bld) [#/Vol]NOT REPORTEDUniversity Hospitals Geauga Medical CenterApptio Phone: [phone] neutrophils/100 WBC (Bld)56 %36 - 65 %[employer] Phone: [phone] Absolute5.70[facility] CenterApptio Phone: [phone] (Bld) [#/Vol]10.2 10*3/uLNetaplan Phone: [phone] (Bld) [#/Vol]NOT REPORTEDUniversity Hospitals Geauga Medical CenterInterface Biologics, Inc. Work Phone: [phone] [employer] Work Phone: [phone] CHEST (2 VW)Ordered By: Latonia Burks on 05-12-2021 Senescent changes compatible with the age of the patient. No evidence of acute cardiopulmonary process.[employer] Phone: eXAMINATION: TWO XRAY VIEWS OF THE [...] the spine and visualized portions of the shoulders.[employer] Phone: edi, [facility] Incoming Radiant Results From [employer] - 05/12/2021 2:48 PM EDT EXAMINATION: TWO [...] patient. No evidence of acute cardiopulmonary process. [employer] Phone: [facility] CenterApp[facility] Phone: cardiovascular Lab Reporton [id number] Lab ReportUnFirelands Regional Medical [facility] MR #: [id number] Department of Physician: Bertram Keyes M.D. Division of Service Date: 08/20/2020 Cardiology Birthdate: 1940 Adult Cardiovascular Room #: [facility] [address] [place] [address] Cardiovascular Laboratory Report INDICATION: The patient is [...] signed informed consent. She was brought to vat house laborer in a fasting state. The procedure was performed under conscious sedation. A transesophageal echocardiogram was performed by Dr. Marisol Khoury at baseline. Please refer to his dictation for details. The appendage measured a maximum of 16 mm in terms of ostial width. Using ultrasound guidance and micropuncture technique, access was obtained in the right common femoral vein and a 6-Latvian x 11 cm sheath was placed preclosure where the 6-Latvian ProGlide device was performed followed by advancement [...] was exchanged over that wire to the 14-Latvian Watchman access sheath, which was advanced to the left atrial cavity with no issues. The 6-Latvian angled pigtail catheter was advanced over the [...] Keyes M.D. Date Trans: (more content not included)...NormalJoint Township District Memorial HospitalTYPE AND CROSSMATCHon [id number] INTERPRETATIONANoCherrington HospitalComment on above:Performed By: #### [id number] #### [facility] [address] [facility] [place] [address], [facility] INTERPRETATIONPositiveSelect Medical Specialty Hospital - CincinnatiComment on above:Performed By: #### [id number] #### [facility] [address] [place] [address], [facility] Vital Signs Date TimeVital SignValuePerforming LdlccfcjpJkvdxedu47-95-6993 11:06-0500Body jfkdwe748.4 cmMateus Perry MD Work Phone: [phone] [place], [place] 6707111-03-2025 11:06-0500 Body mass index (BMI) [Ratio]25.5 kg/y7DlzxddtMateus Perry MD Work Phone: [phone] [place], [place] 6707111-03-2025 11:06-0500 Body .42 kgMateus Perry MD Work Phone: [phone] [place], [place] 6707110-23-2025 13:58-0400 Body zhubua614.4 cmPeyman Brown DPM Work Phone: [phone] [place], [place] [address]Qrtidrvsqv65-71-2919 13:58-0400Body mass index (BMI) [Ratio]28.32 kg/d2Xyjuiyyh Brown DPM Work Phone: [phone])186-[address] [place], [place] [address]Jciimwsdpc70-74-4112 13:58-0400Body lnqsas38.77 kgNicholvalentina Hensley DPM Work Phone: [phone] [place], [place] [address]Qcmpkmlxac85-09-7111 13:58-0400Respiratory rate16 /minPeyman Hensley DPM Work Phone: [phone] [place], [place] [address]Fvogufzzzg59-35-4818 14:36-0400Body .4 cmNicholvalentina Brown DPM Work Phone: [phone])279-[address] [place], [place] [address]Rymybjrhrh11-75-4413 14:36-0400Body mass index (BMI) [Ratio]28.32 kg/h1Bfmbkyja Brown DPM Work Phone: [facility] HospitalGtucwcgwgs61-58-3519 14:36-0400Body oddwjw49.77 kgPeyman Hensley DPM Work Phone: [facility] HospitalBpuavxmixq43-09-6502 14:36-0400Respiratory rate16 /minPeyman Hensley DPM Work Phone: [facility] HospitalEtqexcjkpm30-55-0169 13:02-0500Body .9 cmAdajayme Ashton MD Work Phone: cc[facility] centerand Rsmrnb68-63-8468 13:02-0500Body mass index (BMI) [Ratio]28.13 kg/o6KiqbabVaibhav Ashton MD Work Phone: cNewark HospitalFucicy34-61-4894 13:02-0500Body temperature 97.2 [degF]Vaibhav Ashton MD Work Phone: cNewark HospitalZpappb52-30-4596 13:02-0500Body zcjaxa06.5 kgVaibhav Ashton MD Work Phone: [facility] centerand Svmqcv14-57-1508 13:02-0500Diastolic blood suaoaafn91 mm[Hg]Vaibhav Ashton MD Work Phone: [facility] centerand Hvyrlz72-43-5337 13:02-0500Heart rate75 /min Vaibhav Ashton MD Work Phone: [facility] centerand Yeokds09-78-1445 13:02-0500Respiratory rate 16 /minAdajayme Ashton MD Work Phone: [facility] centerand Yzkkby28-51-1363 13:02-8122KnD6% (BldA) [Mass fraction]99 %Vaibhav Ashton MD Work Phone: [facility] centerand Snqklv78-09-8663 13:02-0500Systolic blood ygownvtv602 mm[Hg]Vaibhav Ashton MD Work Phone: [facility] centerAkron Children's HospitalVzkjbg16-98-9483 10:01-0500Body blaucl136.4 cmNicholvalentina Hensley DPM Work Phone: [phone]12-19-2024 10:01-0500Body mass index (BMI) [Ratio]28.32 kg/r8Oipnswsa Brown DPM Work Phone: [phone] [place], [place] [address]Ednthvcxcx96-19-2940 10:010500Body .77 kgNicholas Brown DPM Work Phone: [phone])489 [address]12-19-2024 10:01-0500Respiratory rate16 /minNicholvalentina Brown DPM Work Phone: [phone] [place], [place] 3764010-10-2024 10:140400Body okuptz749.4 cmNicholvalentina Brown DPM Work Phone: [phone])49989 [address]10-10-2024 10:140400Body mass index (BMI) [Ratio]28.32 kg/e4Synebhlw Brown DPM Work Phone: [phone])[address] [place], [place] 3764010-10-2024 10:140400Body jhhlmy78.77 kgNicholvalentina Hensley DPM Work Phone: [phone])[address]10-10-2024 10:140400Respiratory rate18 /minNicdayana Hensley DPM Work Phone: [phone] [place], [place] [address]Qcidycqdwm78-05-7061 10:180400Body .86 cmMD Mateus Perry Work Phone: [phone])646-[address] [place], [place] 6707108-21-2024 10:18-0400 Body mass index (BMI) [Ratio]30.2 kg/m2MD Mateus Hoy Work Phone: [phone])650-[address] [place], [place] 6707108-21-2024 10:180400 Body ywdiiuizsmb32.8 [degF]MD Mateus Perry Work Phone: [phone])878-[address] [place], [place] 6707108-21-2024 10:18-0400 Body ghuziq86.03 kgMD Mateus Perry Work Phone: [phone] [place], [place] 6707108-21-2024 10:18-0400 Diastolic blood emxuzgpk28 mm[Hg]MD Mateus Perry Work Phone: [phone])483-[address] [place], [place] 6707108-21-2024 10:18-0400 Heart rate80 /minMD Mateus Maciely Work Phone: [phone]08-21-2024 10:18-0400 Respiratory rate16 /minMD Mateus Hoy Work Phone: 1(419)[facility]-[address] [place], [place] 6707108-21-2024 10:18-0400 SaO2% (BldA) [Mass fraction]98 %MD Mateus Perry Work Phone: [phone])[address] [place], [place] 6936108-21-2024 10:18-0400 Systolic blood rgbqtruk237 mm[Hg]MD Mateus Perry Work Phone: 1(419)[address] [place], [place] 6936108-14-2024 11:13-0400 Body vnytlh541.86 cmMD Mateus Hoy Work Phone: [phone] [place], [place] 6936108-14-2024 11:13-0400 Body mass index (BMI) [Ratio]36.3 kg/m2MD Mateus Hoy Work Phone: [phone])[address] [place], [place] 6936108-14-2024 11:13-0400 Body jxtqii40.64 kgMD Mateus Hoy Work Phone: [phone] [place], [place] 6936108-14-2024 11:06-0400 Body ymoydraqybx57.8 [degF]MD Mateus Perry Work Phone: [phone] [place], [place] 6936108-14-2024 11:06-0400 Diastolic blood chathbil48 mm[Hg]MD Matues Perry Work Phone: 1(419)[address] [place], [place] 6936108-14-2024 11:06-0400 Heart rate97 /minMD Mateus Perry Work Phone: [phone])[address] [place], [place] 6936108-14-2024 11:06-0400 Respiratory rate20 /minMD Uribelas Hoy Work Phone: [phone] [place], [place] 6936108-14-2024 11:06-0400 Systolic blood ccywgvtj879 mm[Hg]MD Mateus Perry Work Phone: [phone])[address] [place], [place] 6936107-31-2024 10:30-0400 Body .86 cmMD Mateus Hoy Work Phone: [phone])[address] [place], [place] 6936107-31-2024 10:30-0400 Body mass index (BMI) [Ratio]36.3 kg/m2MD Mateus Hoy Work Phone: [phone])[address] [place], [place] 6936107-31-2024 10:30-0400 Body hydqio57.64 kgMD Mateus Hoy Work Phone: [phone])[address] [place], [place] 6936107-16-2024 09:51-0400 Body .86 cmMD Mateus Hoy Work Phone: [phone])[address] [place], [place] 6936107-16-2024 09:51-0400 Body mass index (BMI) [Ratio]36.3 kg/m2MD Mateus Hoy Work Phone: 1(709)[address] [place], [place] 6936107-16-2024 09:51-0400 Body .64 kgMD Mateus Hoy Work Phone: 1(804)[address] [place], [place] 6936107-16-2024 09:36-0400 Body qrhdlfimffu73.3 [degF]MD Mateus Perry Work Phone: 1(640)[address] [place], [place] 6936107-16-2024 09:36-0400 Diastolic blood tpzvuuuo37 mm[Hg]MD Mateus Perry Work Phone: 1(474)[address] [place], [place] 6936107-16-2024 09:36-0400 Heart rate86 /minMD Mateus Hoy Work Phone: 1(701)[address] [place], [place] 6936107-16-2024 09:36-0400 Respiratory rate18 /minMD Mateus Hoy Work Phone: 1(740)[address] [place], [place] 6936107-16-2024 09:36-0400 Systolic blood mm[Hg]MD Mateus Perry Work Phone: 1(131)[address] [place], [place] 6936110-10-2023 15:29-0400 Body yyyitc054.9 cmMinantonella Farris PA-C Work Phone: [facility]10-10-2023 15:29-0400Body temperature 97.39 [degF]Winnie Kaleigh PA-C Work Phone: [facility]10-10-2023 15:29-0400Body oyfqlb34.64 kgMindy Kaleigh PA-C Work Phone: [facility]10-10-2023 15:29-0400Diastolic blood exnqbqoi18 mm[Hg]Winnie Kaleigh PA-C Work Phone: [facility]10-10-2023 15:29-0400Heart rate72 /min Winnie Kaleigh PA-C Work Phone: [facility]10-10-2023 15:29-0400Respiratory rate 16 /minMindy Kaleigh PA-C Work Phone: [facility]10-10-2023 15:29-9332ClX3% (BldA) [Mass fraction]96 %Winnie Kaleigh PA-C Work Phone: [facility]10-10-2023 15:29-0400Systolic blood gqrtsfmi058 mm[Hg]Winnie Kaleigh PA-C Work Phone: [facility]09-21-2023 08:45-0400Body anstfe413.94 cmMamaximo Gonzales Other [employer] Other 09-21-2023 08:45-0400Body mass index (BMI) [Ratio] 34.57 kg/w1KoobnirChristiano Gonzales Other [employer] Other 09-21-2023 08:45-0400Body ohpiqfecztl47.8 [degF] Christiano Gonzales Other [employer] Other 09-21-2023 08:45-0400Body wasxep79.01 kgMamaximo Gonzales Other [place] [employer] Other 09-21-2023 08:45-0400Diastolic blood sdczoyyt68 mm[Hg] Christiano Gonzales Other [place] [employer] Other 09-21-2023 08:45-1011NqZ2% (BldA) [Mass fraction]93 % Christiano Gonzales Other [place] [employer] Other 09-21-2023 08:45-0400Systolic blood hgizqzjd584 mm[Hg] Christiano Gonzales Other [place] [employer] Other 06-29-2023 08:45-0400Body tuaieg794.94 cmMillie Storm Other [place] [employer] Other 06-29-2023 08:45-0400Body mass index (BMI) [Ratio] 34.57 kg/b3XdpuhyMillie Storm Other [place] [employer] Other 06-29-2023 08:45-0400Body iylunrazhwb07.8 [degF]Millie Storm Other [place] [employer] Other 06-29-2023 08:45-0400Body rolxxw81.01 kgMillie Storm Other [facility] Other 06-29-2023 08:45-0400Diastolic blood mkfayzfj82 mm[Hg] Millie Storm Other [place] [employer] Other 06-29-2023 08:45-5916JiK9% (BldA) [Mass fraction]97 % Millie Storm Other [place] [employer] Other 06-29-2023 08:45-0400Systolic blood mm[Hg] Millie Storm Other [place] [employer] Other 06-06-2023 10:19-0400Body ewhqzb719.9 cmWallace Stone MD Work Phone: [facility]06-06-2023 10:19-0400Body temperature 97.39 [degF]Wallace Stone MD Work Phone: [facility]06-06-2023 10:19-0400Body gohkkq52.46 kgWallace Stone MD Work Phone: [facility]06-06-2023 10:19-0400Diastolic blood qqbyvwrf14 mm[Hg]Wallace Stone MD Work Phone: [facility]06-06-2023 10:19-0400Heart iced772 /Kieran Stone MD Work Phone: [facility]06-06-2023 10:19-0400Respiratory rate 16 /Kieran Stone MD Work Phone: [facility]06-06-2023 10:19-9285KxM6% (BldA) [Mass fraction]95 %Wallace Stone MD Work Phone: [facility]06-06-2023 10:19-0400Systolic blood mm[Hg]Wallace Stone MD Work Phone: [facility]03-29-2023 14:00-0400Body emighz779.[address] [facility] [employer] Other 03-29-2023 14:00-0400Body mass index (BMI) [Ratio] 35.71 kg/q2DmbuwsMillie Storm Other [facility] [employer] Other 03-29-2023 14:00-0400Body igraizzpscv70.6 [degF]Millie Storm Other [facility] Other 03-29-2023 14:00-0400Body augdsb13.73 kgMillie Storm Other [place] [employer] Other 03-29-2023 14:00-0400Diastolic blood mm[Hg] Millie Storm Other [facility] Other 03-29-2023 14:00-9673JmA3% (BldA) [Mass fraction]93 % Millie Storm Other [place] [employer] Other 03-29-2023 14:00-0400Systolic blood vmonrtny820 mm[Hg] Millie Storm Other [place] [employer] Other 03-21-2023 11:53-0400Diastolic blood znjtkcke03 mm[Hg] MD Mateus Perry Work Phone: [facility]03-21-2023 11:53-0400 Heart rate67 /minMD Mateus Perry Work Phone: [facility]03-21-2023 11:53-0400 Respiratory rate16 /minMD Mateus Perry Work Phone: [facility]03-21-2023 11:53-0400 SaO2% (BldA) [Mass fraction]94 %MD Mateus Perry Work Phone: [facility]03-21-2023 11:53-0400 Systolic blood tayhdnzd501 mm[Hg]MD Mateus Moscoso Phone: [facility]03-21-2023 09:13-0400 Body axxpza908.94 cmMD Mateus Perry Work Phone: [facility]03-21-2023 09:13-0400 Body zesdcq62.64 kgMD Mateus Perry Work Phone: [facility]03-15-2023 11:00-0400 Body dnhacw806.94 cmChristiano Gonzales Other [place] [employer] Other 03-15-2023 11:00-0400Body yzakfwemknz76.8 [degF] Christiano Gonzales Other [place] [employer] Other 03-15-2023 11:00-0400Diastolic blood mm[Hg] Christiano Gonzales Other [place] [employer] Other 03-15-2023 11:00-0972VzZ7% (BldA) [Mass fraction]96 % Christiano Gonzales Other [place] [employer] Other 03-15-2023 11:00-0400Systolic blood mm[Hg] Christiano Gonzales Other [place] [employer] Other 03-01-2023 13:44-0500Body jxnswi816.9 cmWallace Stone MD Work Phone: [facility]03-01-2023 13:44-0500Body temperature 97.11 [degF]Wallace Stone MD Work Phone: [facility]03-01-2023 13:44-0500Body xbqgqu47.73 kgWallace Stone MD Work Phone: [facility]03-01-2023 13:44-0500Diastolic blood qivjctbm51 mm[Hg]Wallace Stone MD Work Phone: [facility]03-01-2023 13:44-0500Heart rate66 /min Wallace Stone MD Work Phone: [phone]03-01-2023 13:44-0500Respiratory rate 18 /minWallace Stone MD Work Phone: [phone]03-01-2023 13:44-0629FxA0% (BldA) [Mass fraction]100 %Wallace Stone MD Work Phone: [phone])[address] [place], [place] 1414303-01-2023 13:44-0500Systolic blood hfqaaaze959 mm[Hg]Wallace Stone MD Work Phone: 1(646)[address] [place], [place] 5801801-12-2023 11:24-0500Body wzjqfi633.9 cmWallace Stone MD Work Phone: 1(095)[facility] [place], [place] 1414301-12-2023 11:24-0500Body temperature 97.81 [degF]Wallace Stone MD Work Phone: 1(188)[address] [place], [place] 5801801-12-2023 11:24-0500Body eanbja50.82 kgWallace Stone MD Work Phone: 1(432)[address] [place], [place] 4771001-12-2023 11:24-0500Diastolic blood ximkxpxp35 mm[Hg]Wallace Stone MD Work Phone: 1(682)[address] [place], [place] 1414301-12-2023 11:24-0500Heart rate70 /min Wallace Stone MD Work Phone: 1([phone]01-12-2023 11:24-0500Respiratory rate 16 /minWallace Stone MD Work Phone: [phone]01-12-2023 11:24-2848NyK7% (BldA) [Mass fraction]94 %Wallace Stone MD Work Phone: [facility]01-12-2023 11:24-0500Systolic blood jftowfme142 mm[Hg]Wallace Stone MD Work Phone: [facility]12-30-2022 15:06-0500Blood Pressure LocationMichael NILL [facility] Yuwjpdxq62-68-5519 15:06-0500Diastolic blood venljccf18 mm[Hg]Iliana NILL [facility] Dfhhknnq17-20-9505 15:06-0500Heart rate 68 /minMichael NILL [facility] Blxcijpb83-72-8960 15:06-0500 Respiratory rate16 /minMichael NILL [facility]12-30-2022 15:06-0500Systolic blood aezahfhd321 mm[Hg]Iliana NILL [facility] Jwdvvgkx47-71-1170 12:00-9625JxX6% (BldA) [Mass fraction]95 %Emma Plunkett MD Work Phone: [facility]10-18-2022 11:50-0400Body pkeyhxqnwts49.3 [degF]Emma Plunkett MD Work Phone: [facility]10-18-2022 11:50-0400Diastolic blood jysclhza53 mm[Hg]Emma Plunkett MD Work Phone: [facility]10-18-2022 11:50-0400Heart rate69 /Terese Plunkett MD Work Phone: [facility]10-18-2022 11:50-0400 Respiratory rate16 /Terese Plunkett MD Work Phone: [facility]10-18-2022 11:50-0400Systolic blood boclngty535 mm[Hg]Emma Plunkett MD Work Phone: [facility]10-18-2022 07:36-0400Body gpypsa861.9 cmCjameel Plunkett MD Work Phone: [facility]10-18-2022 07:36-0400Body mass index (BMI) [Ratio]34.58 kg/e5UjggihdukeeEmma Plunkett MD Work Phone: [facility]10-18-2022 07:36-0400Body qwcrby15.01 kgEmma Plunkett MD Work Phone: [facility]04-04-2022 15:45-0400Body vfbeamqzgjd85 [degF]Emma Plunkett MD Work Phone: [facility] HospitalXdtogx23-49-2212 15:45-0400Diastolic blood uzjgumdq02 mm[Hg]Emma Plunkett MD Work Phone: [facility] HospitalEmfckf26-81-6382 15:45-0400Heart rate65 /min Emma Plunkett MD Work Phone: [facility] HospitalUwthxe31-28-5219 15:45-0400Respiratory rate14 /minEmma Plunkett MD Work Phone: [facility] HospitalIrmgvd90-12-6456 15:45-4828OpG1% (BldA) [Mass fraction]94 %Emma Plunkett MD Work Phone: [place] [address]Vnmblm82-74-5734 15:45-0400Systolic blood hmukgogh919 mm[Hg]Emma Plunkett MD Work Phone: [phone] [id number] 09:46-0400Body xqdobp028.9 cm Emma Plunkett MD Work Phone: [facility] HospitalZyjevr15-91-2222 09:46-0400Body mass index (BMI) [Ratio]36.09 kg/w4VylwtbrmoshEmma Plunkett MD Work Phone: [facility] HospitalTlwcur33-04-4536 09:46-0400Body bwqidt13.64 kg Emma Plunkett MD Work Phone: [facility] HospitalNydufo16-47-5721 14:46-0400Body ijvuzk555.9 cm [address] Street03-28-2022 14:46-0400Body mass index (BMI) [Ratio]36.09 kg/m2 [address]03-28-2022 14:46-0400Body ctuhsoxrbxr83.4 [degF][address]03-28-2022 14:46-0400Body tvdtun70.[address]03-28-2022 14:46-0400Diastolic blood asxvtvxq78 mm[Hg][address]03-28-2022 14:46-0400Heart rate62 /minSt14 [address]03-28-2022 14:46-0400Respiratory rate20 /minStv63 [address] StreetPupunf19-06-3015 14:46-6062RqC3% (BldA) [Mass fraction]97 %[address]03-28-2022 14:46-0400Systolic blood lugqzqgj427 mm[Hg][address]10-05-2021 10:14-0400Body fkvudqdlpxs43.81 [degF]Kin Abarca MD Work Phone: [facility] Work Phone: [phone] 10:14-0400Diastolic blood mm[Hg] Kin Abarca MD Work Phone: [facility] Work Phone: [phone] 399-620310-05-2021 10:14-0400Heart rate61 /Rosalva Abarca MD Work Phone: [facility] Work Phone: [phone] 10:14-0400Respiratory rate14 /Rosalva Abarca MD Work Phone: [facility] [employer] Work Phone: 1(838) 372-972110-05-2021 10:14-5113BnG8% (BldA) [Mass fraction]96 % Kin Abarca MD Work Phone: [facility] [employer] Work Phone: [phone] 10:14-0400Systolic blood rxotbnqk609 mm[Hg] Kin Abarca MD Work Phone: [facility] [employer] Work Phone: 1([phone] 852-613810-05-2021 08:24-0400Body bydjmi437.9 Dharmesh Abarca MD Work Phone: [facility] [employer] Work Phone: [phone] 08:24-0400Body mass index (BMI) [Ratio] 34.96 kg/m2Kin Abarca MD Work Phone: [facility] [employer] Work Phone: 1(380) 319-738110-05-2021 08:24-0400Body yxlgqv32.92 kgKin Abarca MD Work Phone: [facility] [employer] Work Phone: 1(179) 585-390209-01-2021 12:53-0400Body bwxtpa461.[address] [facility] [employer] Work Phone: 1(483) 386-395109-01-2021 12:53-0400Body mass index (BMI) [Ratio] 35.52 kg/m2Stvz [facility] [employer] Work Phone: 1(810) 630-311809-01-2021 12:53-0400Body etvuxgrtlfn66.8 [degF]Stvz 1 [facility] [employer] Work Phone: 1(298) [phone] 12:53-0400Body .[address] [facility] [employer] Work Phone: 1(381) [phone] 12:53-0400Diastolic blood odqkzyiy75 mm[Hg] Stvz [facility] [employer] Work Phone: 1(490) [phone] 12:53-0400Heart rate57 /minStvz 1[facility] [employer] Work Phone: 1([phone]) 640-385509-01-2021 12:53-0400Respiratory rate18 /minStvz 1 [facility] [employer] Work Phone: 1(155) 535-501509-01-2021 12:53-6894MqH2% (BldA) [Mass fraction]96 % Stvz [facility] [employer] Work Phone: 1([phone] 12:53-0400Systolic blood mm[Hg] Stvz [facility] [employer] Work Phone: Encounters Encounter DateEncounter TypeCare ProviderFacilityStart: 07-18-2025 End: 14-37-5190tguapalqvrFcnwflgJefferson Farmer MDFacility: [place]y Start: 96-20-2196ebiwnwmpvwTAML [facility]art: 07-14-2025 End: 66-12-4541bmqtkgiljrJavvynq M Hoy MD Work Phone: -[facility] BellevueStart: 07-14-2025 End: 59-65-0383Yyfzxfs encounter procedureJujudy Cutler DO-[facility] [place] Work Phone: Start: 07-03-2025 End: 64-52-7088Hwxmzc Pavithra Hensley DPM Work Phone: noms CI PODIATRYStart: 07-03-2025 End: 85-57-8106Richmv Pavithra Hensley DPM Work Phone: noms CI PODIATRYStart: 07-03-2025 End: 94-54-2072Hhbxfa outpatient visit 10 minutesNicdayana Hensley DPM Work Phone: noms CI PODIATRYComment on above:Neoplasm of uncertain behavior of skin (Primary Dx); Diabetes mellitus due to underlying condition with diabetic polyneuropathy, 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 ferry terminal agent insulin use (HCC); Pain due to onychomycosis of toenails of both feet; Venous insufficiency; Acquired deformity of left toeStart: 07-03-2025 End: 17-56-9886mcbknsajkkOTGZCNWC A BROWNNot AvailableStart: 06-18-2025 ambulatoryBLAIR GRUBBUniSouthwest General Health Centertart: 06-03-2025 End: 78-00-7969Tkqbtht encounter procedureChristiano Mcdonnell MD-Lab [address] Work Phone: Start: 06-03-2025 End: 32-93-3290tppdhxfppsIonnbei M Hoy MD Work Phone: [facility] Work Phone: Start: 86-37-2338tmupdrmylbIEYQZSumma Health Barberton Campustart: 03-04-2025 End: 27-95-5786bajzubwrmzTshdtyt MorrowFacility:[facility] Hospitaltart: 32-21-4538uuhrfvdozzLWEASelect Medical [facility] Start: 01-30-2025 End: 67-02-7231rhcnwkaprwFKYGBXWJ A BROWNNot AvailableStart: 01-21-2025 End: 89-77-8983fwrapvclxdOCWCOhioHealth Hardin Memorial Hospitaltart: 11-19-4283eftvwzmkzmBNYKOhioHealth Hardin Memorial Hospitaltart: 01-07-2025 End: 90-66-0468Lqwoxhy encounter Hardik Perry MD Work Phone: [facility]-XRay [address] Work Phone: Start: 01-07-2025 End: 75-18-1912jlsbatexehBraaxrm M Hoy MD Work Phone: [facility] Work Phone: Start: 38-08-6778izkqutsmidZYDBCleveland Clinic Children's Hospital for Rehabilitationtart: 12-10-2024 End: 83-07-2646Cabzhwv encounter procedureMateus Perry MD Work Phone: [facility]-Lab [address] Work Phone: Start: 12-10-2024 End: 28-71-4615etxfufqdntDrfyxqg M Hoy MD Work Phone: [facility] Work Phone: Start: 11-21-2024 End: 35-29-4926Kyybal outpatient visit 15 minutesNicdayana Hensley DPM Work Phone: noms CI PODIATRYComment on above:Neoplasm of uncertain behavior of skin (Primary Dx); Diabetes mellitus due to underlying condition with diabetic polyneuropathy, 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 ferry terminal agent insulin use ([facility]); Pain due to onychomycosis of toenails of both feet; Venous insufficiency; 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 ([facility])Start: 11-21-2024 End: 27-77-6620okwubrkfkcJTHLDSMF A BROWNNot AvailableStart: 11-21-2024 End: 21-77-6064Mwleyp flowsMadeleine Hensley DPM Work Phone: [facility] CI PODIATRYStart: 11-21-2024 End: 69-72-6316Rakbgmricardo Hensley DPM Work Phone: noms CI PODIATRYStart: 28-15-1338bobguekwgdTWSIProtestant Deaconess Hospitaltart: 90-31-8164yvkkzsgqksVDXERegency Hospital Toledotart: 11-05-2024 End: 70-88-5104hhgeftdsfmNTLKCleveland Clinic Children's Hospital for Rehabilitationtart: 10-29-2024 End: 74-67-6904Kxrstbb encounter Hardik Perry MD Work Phone: [facility]-Lab [address] Work Phone: Start: 10-29-2024 End: 64-56-4125eetjqmbeviElavdpu M Hoy MD Work Phone: [facility] Work Phone: Start: 58-60-7027xqpicepcwrXZWK [facility] Centertart: 10-09-2024 End: 94-18-6963Iuuhasdlq encounterAdajayme Ashton MD Work Phone: Hematology/OncologyStart: 10-08-2024 End: 10-99-3520Xvvsgv outpatient visit 25 minutesAdarsdarian Ashton MD Work Phone: Hematology/OncologyComment on above: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, estrogen receptor positive (HCC) (Primary Dx); Stage 3a chronic kidney disease (HCC)Start: 10-08-2024 End: 55-97-7147atklnevjsqMZGMNZB M HOYFacility:[facility] Institutetart: 10-04-2024 End: 12-92-5836Zjhrfrqlj encounterFelicelen Sandoval RNHematology/OncologyComment on above:Patient Question; Appointment; OrdersStart: 09-24-2024 End: 67-36-4483umpzlgzdinTXRVOhioHealth Hardin Memorial Hospitaltart: 39-52-4434snuiulhmtsEIZYOhioHealth Hardin Memorial Hospitaltart: 30-46-0228sldiniuntzGVUCOhioHealth Hardin Memorial Hospitaltart: 90-26-3470zeqcbqziixDVSVOhioHealth Hardin Memorial Hospitaltart: 83-16-8168Kdjzvbiij for preprocedural cardiovascular examinationPAKeenan Private Hospitaltart: 25-15-5512Bdr-patient / Non-visit Mateus Perry MD Work Phone: [facility] GroupAsht[facility] Out[facility] Work Phone: Start: 26-84-9646uodewegflyLFUT [facility] Centertart: 08-29-2024 End: 82-63-2055Shfsoy Pavithra Hensley DPM Work Phone: [facility] CI PODIATRYStart: 08-29-2024 End: 70-53-0577Gmayymricardo Hensley DPM Work Phone: [facility] CI PODIATRYStart: 08-29-2024 End: 97-33-5272Taswix outpatient visit 15 minutesPeyman Hensley DPM Work Phone: noms CI PODIATRYComment on above: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) (Primary Dx); Diabetes mellitus due to underlying condition with diabetic polyneuropathy, 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 nursing home insulin use (CMS/HCC); Pain due to onychomycosis of toenails of both feet; Venous insufficiency; Neoplasm of uncertain behavior of skinStart: 08-29-2024 End: 02-07-7124avshrejtznYGEHSQNC A BROWNNot AvailableStart: 08-27-2024 End: 63-29-0829tatixkebrcNMUVAultman Orrville Hospitaltart: 09-53-3445fsxokpijjdCJJFAultman Orrville Hospitaltart: 08-12-2024 End: 84-20-4055fhuxuyqdltVQVEAultman Orrville Hospitaltart: 06-20-2024 End: 60-24-6094Lflkap Pavithra Hensley DPM Work Phone: [facility] CI PODIATRYStart: 06-20-2024 End: 39-14-2313Wcsmyb Pavithra Hensley DPM Work Phone: [facility] CI PODIATRYStart: 06-20-2024 End: 43-41-9431Ciotwg outpatient new 30 minutesPeyman Hensley DPM Work Phone: noms CI PODIATRYComment on above:Hav (hallux abducto valgus), left (Primary Dx); Venous insufficiency; Acquired deformity of left toe; 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); Diabetes mellitus due to underlying condition with diabetic polyneuropathy, 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 ferry terminal agent insulin use (CMS/HCC); Pain due to onychomycosis of toenails of both feetStart: 05-01-2024 End: 84-63-8130amohvrgfhmWC Mateus M Hoy Work Phone: [facility] Work Phone: Start: 05-01-2024 End: 22-54-9309Tltxjmc encounter procedureMD Mateus Hoy Work Phone: [facility] Vascular Surgery Work Phone: Start: 04-24-2024 End: 92-51-1696dqfrifftkbVE Mateus M Hoy Work Phone: [facility] Work Phone: Start: 04-24-2024 End: 34-68-5325Nebkakbcul RecurringMD Mateus Hoy Work Phone: [facility]-Wound Care [place] Work Phone: Start: 04-09-2024 End: 92-29-6378doxfpsicgrJL Mateus M Hoy Work Phone: [facility] Work Phone: Start: 04-09-2024 End: 64-55-7621Yluebag encounter procedureMD Mateus Hoy Work Phone: [facility]-Ultrasound Main [place] Work Phone: Start: 04-13-6294Gmmcrhpbrq RecurringMD Mateus Hoy Work Phone: [facility]-Wound Care [place] Work Phone: Start: 06-20-2023 End: 28-37-3898fnvdrgmzpqYdwnk M Musser PA-C Work Phone: Hematology/OncologyComment on above: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, estrogen receptor positive (HCC) (Primary Dx); Stage 3a chronic kidney disease (HCC)Start: 06-20-2023 End: 56-01-5440Htcopct encounter procedureWinnie Farris PA-C Work Phone: SANDUSKYStart: 06-01-2023 End: 02-99-7095wgrijqxnlgEorsizt [place] Other [employer] Other Start: 53-21-3152Smfnvu outpatient visit 15 minutes Christiano MarreroOscar Vascular SurgeryStart: 04-06-2023 End: 56-93-1472dxjsivjmjjWBZOPJX M HOAdena Health Systemmodesta [facility] State Hospitaltart: 03-09-2023 End: 62-28-3987npqquddzraIsqbaf Ruttino Other [employer] Other Start: 24-85-8463Wlwswkm encounter procedureJackie RuttinoFPG Vascular SurgeryStart: 03-06-2023 End: 24-45-5451gdcbnrnyymXWQTPGUFRQR LUTMAN [facility] Start: 02-14-2023 End: 39-99-4959kimkcyogpeVyvasDeyvi Stone MD Work Phone: Hematology/OncologyComment on above: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, estrogen receptor positive (HCC) (Primary Dx); Rash; Other eczema; Stage 3a chronic kidney disease (HCC)Start: 02-14-2023 End: 78-84-0112Gslggth encounter Gita Stone MD Work Phone: SANDUSKYStart: 01-19-2023 End: 53-51-1182fxdulgiadnUZ DOUGLAS HOY .Facility:S8Sahge: 12-08-2022 End: 95-44-4054ttezcricppPrxcph Ruttino Other [employer] Other Start: 45-64-5995Qzmjsjpdu encounterJackie RuttinoFPG Vascular SurgeryStart: 12-07-2022 End: 18-97-4520gcyxlriulzGngare Ruttino Other [employer] Other Start: 50-43-7901Nejcrvm encounter procedureJackie RuttinoFPG Vascular SurgeryStart: 11-29-2022 End: 70-65-3279Fyklxojxo to same day surgery center Mateus Perry Work Phone: [facility]-Interventional Radiology Work Phone: Start: 11-29-2022 End: 81-55-6932bhgpykzlfoKN Mateus Perry Work Phone: [facility] Work Phone: Start: 11-24-2022 End: 60-92-8975lctsbhemuyZMITMZ St. 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, estrogen receptor positive (HCC) (Primary Dx); Claudication in peripheral vascular disease (HCC)Start: 11-09-2022 End: 18-61-9441Elflegc encounter procedureWallace Stone MD Work Phone: SANDUSKYStart: 64-67-2195Fdebdbnuf encounterWallace Stone MD Work Phone: Cancer Appts MCComment on above:Referral Information (Vascular Consult)Start: 11-08-2022 End: 99-62-3146dlcgerpjnqIurpcjv R NILLFacility:[facility] Dublintart: 11-08-2022 End: 31-24-4149Shkrxpl encounter procedureMichael R NILL General Surgery Nill/Said [place] Start: 11-04-2022 End: 07-51-6492menvudwpalFrjoxlu R NILLFacility:[facility] Dublintart: 11-04-2022 End: 88-08-6252Uskkjhr encounter procedureMichael R NILL General Surgery Nill/Said [place] Start: 11-02-2022 End: 72-93-8193ifaknjibzoFE MATEUS PERRY .Facility:X3Cymbh: 10-25-2022 End: 40-64-5599nvvqlchsudQslooub R NILLFacility:[facility] Systemrt: 10-25-2022 End: 78-20-1379Jeinvad encounter procedureMichael R NILL General Surgery Nill/Said [place] Start: 10-19-2022 End: 75-24-2519dyybahwsgfPO ILIANA GAGNON .Facility:E2Eflud: 47-93-2636xciciybpgf DR ILIANA GAGNON .Facility:E8Rzdrt: 96-81-9419Evdxdfryf for preprocedural laboratory examinationDR ILIANA BatresThe Jewish Hospitaltart: 10-11-2022 End: 45-67-9916adbtxjhqhtLO MICHAEL NILL .Facility:M5Yamal: 10-11-2022 End: 15-32-0056Lbprmbpwa for preprocedural laboratory examinationDR ILIANA GAGNON .Facility:C6Kjjfj: 09-30-2022 End: 87-44-9274spzqskbiamVY DOUGLAS HOY .Facility:S2Rneio: 39-11-7841Dnbwmqiza encounterHeavenly Wilkerson RN Work Phone: Hematology/OncologyComment on above:Care Coordination (Surgery update)Start: 09-22-2022 End: 77-54-8078hcuxyntjdcGwnwkDeyvi Stone MD Work Phone: Hematology/OncologyComment on above: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, estrogen receptor positive (HCC) (Primary Dx)Start: 09-22-2022 End: 58-80-6449Mvikhfe encounter Gita Stone MD Work Phone: SANDUSKYComment on above:Malignant neoplasm of upper- outer quadrant of right breast in female, estrogen receptor positive (HCC) (Primary Dx)Start: 09-21-2022 End: 82-29-9533nxibnhyfveIB MATEUS HOY .Facility:U0Kssso: 64-07-9822Nvfgl abstractKrishna Stone MD Work Phone: Hematology/OncologyStart: 09-16-2022 End: 86-93-2537idhynwaljvRG DOCTOR MISCFacility:U3Umycp: 09-09-2022 End: 75-11-2788qrcqfptxbmGswwojf R NILLFacility: BellevueStart: 09-09-2022 End: 61-10-5320Ptuubde encounter procedureMichael R NILL General Surgery Nill/Said [place] Start: 51-95-0404bfezpvvgliOB MATEUS HOY .Facility:H1 Start: 08-23-2022 End: 26-87-4459ypvpyjglhiPM MATEUS HOY .Facility:C4Ropxd: 81-24-7569wscyahfxld Iliana R NILLFacility: BellevueStart: 08-19-2022 End: 41-75-3329xdtdudsuyfGW MATEUS HOY .Facility:P8Kdfrm: 08-14-2022 End: 77-69-2600jclbhfpyfjEN MATEUS HOY .Facility:M2Qmvgv: 08-11-2022 End: 32-73-8762xdkpvhjrteCI MATEUS HOY .Facility:L5Mghhi: 08-08-2022 End: 44-95-7503byykctodsbJR MATEUS HOY .Facility:T5Nnrth: 08-02-2022 End: 08-39-9471iyqzferkgsCK MATEUS HOY .Facility:G7Xhlhi: 07-19-2022 End: 53-93-4613uscueomvitIG MATEUS HOY .Facility:U5Rntzk: 06-28-2022 End: 94-05-9881Vnhnnrxttj hospital visit by Shanti Garza MD Work Phone: stvz ORComment on above:Vaginal dysplasiaStart: 06-22-2022 End: 27-74-1499jqpdchufjuIMNFFEA TUCKERFacility:D5Soxwa: 45-19-0219bbyyaxflsb SONALI TUCKERFacility:W8Lwuao: 04-12-2022 End: 58-82-7110ataqefxwsrNHIQUIR TUCKERFacility:T3Qysme: 03-17-2022 End: 81-41-9134hhbtxsovznBL MATEUS HOY .Facility:Z7Kcytv: 03-16-2022 End: 92-93-4145svjquvhalmDR MATEUS HOY .Facility:W4Hvbki: 03-15-2022 End: 94-86-1582kqxbnzooquGCJFNHM TUCKERFacility:X7Ivtof: 02-15-2022 End: 17-99-3452dcosypuknaFSPFNQS TUCKERFacility:B7Tcqjo: 02-09-2022 End: 02-84-6349xefmmhmuumNZGOMLK TUCKERFacility:R2Bguqy: 12-13-2021 End: 36-18-4567Lddknkbtan hospital visit by Shanti Garza MD Work Phone: stvz ORComment on above:Post-operative state (Primary Dx)Start: 12-06-2021 End: 96-38-6104Wxuyqncqsc hospital visit by physicianSyao [facility] RadiologyComment on above:ArrivedStart: 12-06-2021 End: 80-85-5048Wqxskwt encounter statusStvsandra 2STVZ Pre-Admit TestingStart: 12-06-2021 End: 53-16-5274Wxirwdvzuj hospital visit by physicianSruiz Hendrix 2STVZ Pre-Admit TestingComment on above:Pre-op chest examStart: 06-15-2021 End: 73-34-0445Qpozjbojxa hospital visit by Wallace Abarca MD Work Phone: stVZ ORStart: 05-12-2021 End: 49-33-8414Oeyknjmwom hospital visit by Francisco Hendrix [facility] RadiologyComment on above:ArrivedStart: 05-12-2021 End: 31-72-8929Ezcxsbu encounter statusStvz 1STVZ Pre-Admit TestingStart: 05-12-2021 End: 13-77-5424Ddqkerwjal hospital visit by physicianSruiz Hendrix 1STVZ Pre-Admit TestingComment on above:Pre-op chest exam Procedures DateProcedureProcedure DetailPerforming ClinicianStart: 66-49-0058F-ray of lumbar spine, two or three viewsMateus Perry MD Work Phone: Start: 97-50-1121Kjtbc x-ray of pelvis and lower extremityMateus Perry MD Work Phone: [phone]-art: 22-93-4079K-ray of both knees, two viewsMateus Perry MD Work Phone: Start: 24-98-4461Dkkzd brachial pressure indexMD Mateus Hoy Work Phone: [phone]: 57-01-0726Jtyogt scan of lower limb veinsMD Mateus Hoy Work Phone: Start: 97-48-2187HhmgdhecizAS Mateus Hoy Work Phone: [phone]-art: 41-30-9583Vuhymuqibb of right breastMichael NILL Start: 36-77-4311Gbgtbrj blood reagent stripChristopher Kayla CARDONA Work Phone: Start: 17-61-4996WZTJDWJ, IONIC (POC)Emma Garza MD Work Phone: Start: 47-90-7671Rkhphxta [Moles/volume] in Serum or PlasmaChosmintopher Kayla CARDONA Work Phone: Start: 34-09-3224QQOYTGNLTQ W/GFR POINT OF CARE Emma Garza MD Work Phone: Start: 48-87-8005Puok bld gluc mntr dev cleared fda spec home useChosmintopher Kayla CARDONA Work Phone: Start: 23-18-2945JCYOHK ACID,POINT OF CAREEmma Garza MD Work Phone: Start: 56-07-8787Zsqxoqgsp [Moles/volume] in Serum or PlasmaChristopher Kayla CARDONA Work Phone: start: 15-54-8973Wjhpzx [Moles/volume] in Serum or PlasmaSamueltopher Kayla CARDONA Work Phone: Start: 57-28-4299Wuw routine ecg w/least 12 lds w/i&r Jimy Remy MD Work Phone: Start: 16-95-1729Jipx bld gluc mntr dev cleared fda spec home useEmma Garza MD Work Phone: Start: 67-44-6968Qfahnrkgg [Moles/volume] in Serum or PlasmaEmma Garza MD Work Phone: Start: 24-37-1678Klrskdvy screenStvz 2Start: 45-56-2356Zocvi of magnesiumAlyssa Kimmie PA-C Work Phone: Start: 62-89-5528Gfyaxkmdos exam chest 2 viewsAlyssa Kimmie PA-C Work Phone: Start: 98-64-7521Ufn routine ecg w/least 12 lds i&r onlyAlyssa Kimmie PA-C Work Phone: Start: 97-04-3626Jvgim typing serologic aboAlyssa Kimmie PA-C Work Phone: Start: 06-15-2021H/O: surgeryS/p Partial vaginectomy with Ultrasonic Scalpel 06/15/21Eric Nikolai Abarca MD Work Phone: Start: 15-06-5911Zyeivud blood reagent stripEric Nikolai Abarca MD Work Phone: Start: 04-79-6962IXXPCBWIPX W/GFR POINT OF CAREEric Nikolai Abarca MD Work Phone: Start: 65-60-3335Gxef bld gluc mntr dev cleared fda spec home useEric Nikolai Abarca MD Work Phone: Start: 15-78-3411Cqyovyeve [Moles/volume] in Serum or PlasmaKin Abarca MD Work Phone: Start: 47-31-7126WJFMI METABOLIC PANEL W/ REFLEX TO MG FOR LOW KAlyssa Kimmie PA-C Work Phone: Start: 42-22-5683Eetqe count complete auto&auto difrntl wbcAlyssa Kimmie PA-C Work Phone: Start: 89-24-1932Mrmflxpnox exam chest 2 viewsAlyssa Kimmie PA-C Work Phone: Start: 43-92-7897Hic routine ecg w/least 12 lds i&r onlyAlyssa Kimmie PA-C Work Phone: Start: 29-67-8392Nwwrduze screenComment on above: Performed By: #### [id number] #### [address] [place] [address], USAStart: 30-36-3403Xbwcpwq of placement of stent for coronary artery [...] Plan of Treatment DateCare ActivityDetailAuthorStart: 07-03-2025 End: 51-84-3391Ugjbnwl encounter vigdkcndx36/23/2025 1:50 PM EDT Office Visit [facility] [address] [facility] [address] [place] [address] Peyman Hensley DPM [address] [facility] [address] [place] [address] Diabetes mellitus due to underlying condition with diabetic polyneuropathy, 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 nursing home insulin use (HCC) (Primary Dx); Pain due to onychomycosis of toenails of both feet; Venous insufficiency; Acquired deformity of left toe; Neoplasm of uncertain behavior of skinNOMS CI PODIATRYComment on above:Diabetes mellitus due to underlying condition with diabetic polyneuropathy, 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 ferry terminal agent insulin use (HCC) (Primary Dx); Pain due to onychomycosis of toenails of both feet; Venous insufficiency; Acquired deformity of left toe; Neoplasm of uncertain behavior of skinStart: 85-21-7311Vruwlwqkc vaccination Influenza Vaccine (#1)[facility] HealthcareStart: 04-08-2025 End: 90-02-3061Qsordv-up evvlvnhko40/29/2025 1:30 PM EDT Visit (SP) Office Hematology/Oncology [address] [place] [address] [address] [place], [place] [phone] Vaibhav Ashton MD [address] [place] [address] 6 month follow upHematology/OncologyComment on above:6 month follow upStart: 04-08-2025 End: 06-06-2012Cjsqlkc encounter gvebroxhg68/29/2025 1:15 PM EDT Office Visit [facility] [address] [place] [address] labsNortMcLaren Bay [facility] LaboratoryComment on above:labsStart: 11-21-2024 End: 96-17-5611Mtsrjbm encounter mfvcwosse94/13/2025 2:40 PM EDT Office Visit [facility] [address] [place] [id number] Peyman Hensley DPM [address] [address] Diabetes mellitus due to underlying condition with diabetic polyneuropathy, 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 ferry terminal agent insulin use (CMS/HCC) (Primary Dx); Pain due to onychomycosis of toenailsof both feet; Venous insufficiency; Neoplasm of uncertain behavior of skin; 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)[facility] PODIATRYComment on above:Diabetes mellitus due to underlying condition with diabetic polyneuropathy, 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 ferry terminal agent insulin use (CMS/HCC) (Primary Dx); Pain due to onychomycosis of toenails of both feet; Venous insufficiency; Neoplasm of uncertain behavior of skin; 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)Start: 11-07-2024 End: 17-88-7649Czselri encounter cxxfpotsj87/27/2025 10:00 AM EST Office Visit [facility] [address] [place] [id number] Peyman Hensley DPM [address] [address] [facility]ODIATRYStart: 14-95-6562TikvwwdahProMedica Flower Hospitaltart: 10-08-2024 End: 84-45-4787Nwtgprqgg (Vitamin B12) [Mass/volume] in Serum or PlasmaClinton Memorial HospitalComment on above:Expected: 10/08/2024, Expires: 01/07/2025Start: 10-08-2024 End: 90-70-2179Vsezpfsi [Mass/volume] in Serum or PlasmaClinton Memorial Hospital [facility] Work Phone: comment on above:Expected: 10/08/2024, Expires: 01/07/2025Start: 10-08-2024 End: 21-33-9501Muhusz [Mass/volume] in Serum or PlasmaClinton Memorial HospitalComment on above:Expected: 10/08/2024, Expires: 01/07/2025Start: 10-08-2024 End: 93-26-0129Johp and Iron binding capacity panel - Serum or PlasmaClinton Memorial HospitalComment on above:Expected: 10/08/2024, Expires: 01/07/2025Start: 10-08-2024 End: 79-18-6435brlxtygqmx57/28/2025 1:00 PM EST Visit (SP) Office Hematology/Oncology [address] [place] [address] [address] [place], [place] [phone] Vaibhav Ashton MD [address] [place] [address] [place] [address] AAMIR from [facility] wanted to transfer to [facility]/OncologyComment on above:AAMIR from [facility] wanted to transfer to [facility]: 10-08-2024 End: 47-16-8729Skpbttb encounter yztmgfwfi91/28/2025 12:45 PM EST Office Visit [facility] [address] [place] [address] [place] [address] AAMIR from [facility] transfer to [facility] LaboratoryComment on above:AAMIR from [facility] wanted to transfer to [facility]: 10-04-2024 End: 45-68-1472ALP W Auto Differential panel - BloodCOMPLETE BLOOD COUNT AND DIFFERENTIAL Lab Routine 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, estrogen receptor positive (HCC) Expected: 10/04/2024, Expires: 01/03/2025 [facility] Work Phone: Comment on above:Expected: 10/04/2024, Expires: 01/03/2025Start: 10-04-2024 End: 77-63-7728Cnnrvodskchxi metabolic 2000 panel - Serum or PlasmaCOMPREHENSIVE METABOLIC PANEL Lab Routine 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, estrogen receptor positive (HCC) Expected: 10/04/2024, Expires: 01/03/2025[facility] ClinicComment on above:Expected: 10/04/2024, Expires: 01/03/2025Start: 17-61-8663Qvjndtd Directive DiscussionAdvance Directive DiscussionVeterans Health Administrationtart: 08-29-2024 End: 55-20-6939Hbeaucx encounter procedureNOMS CI PODIATRYComment on above: 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) (Primary Dx); Diabetes mellitus due to underlying condition with diabetic polyneuropathy, 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 nursing home insulin use (CMS/HCC); Pain due to onychomycosis of toenails of both feet; Venous insufficiencyStart: 53-26-9272Fmgysyajdt/HematocritHemoglobin/Hematocrit [facility] Administrationtart: 64-48-5482Tozxe CreatinineSerum CreatinineVeterans Health Administrationtart: 69-64-0503Yhqcg-19 Vaccine ( season)Covid-19 Vaccine ( season)[facility] Administrationtart: 96-13-8009Smcahmqcy vaccinationInfluenza Vaccine (#1)[facility] HealthcareStart: 56-05-7592FQAYKRXRAD/HEMATOCRIT HEMOGLOBIN/HEMATOCRITVeterans Health Administrationtart: 19-75-3022LOMXK CREATININESERUM CREATININEVeterans Health Administrationtart: 06-16-2023 End: 76-56-0196TZU W Auto Differential panel - BloodCBC + DIFF Lab Routine 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, estrogen receptor pos itive (HCC) Expected: 06/16/2023 (Approximate), Expires: 08/16/2023[facility] Work Phone: Comment on above:Expected: 06/16/2023 (Approximate), Expires: 08/16/2023Start: 06-16-2023 End: 01-31-9588Xemvafmmwepxz metabolic 1999 panel - Serum or PlasmaCOMP METABOLIC PANEL Lab Routine 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, estrogen receptor positive (HCC) Expected: 06/16/2023 (Approximate), Expires: 08/16/2023[facility] Work Phone: Comment on above:Expected: 06/16/2023 (Approximate), Expires: 08/16/2023Start: 94-83-1723Fezub-19 Vaccine ()Covid- 19 Vaccine ()[facility] Administrationtart: 93-21-6506Htxmufsgp vaccinationVeterans Health Administrationtart: 04-12-2023 End: 54-47-9650Mqvurkd encounter esecoxsel51/02/2023 Office Visit Gynecologic Oncology Latonia Brush PA-C [address] [place] [address] [facility] Gynecologic Oncology ServicesStart: 02-09-2023 End: 80-87-2301VFI W Auto Differential panel - BloodCBC + DIFF Lab Routine 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, estrogen receptor pos itive (HCC) Expected: 02/09/2023 (Approximate), Expires: 04/11/2023[facility] Work Phone: Comment on above:Expected: 02/09/2023 (Approximate), Expires: 04/11/2023Start: 02-09-2023 End: 42-60-6031Bpuqzlkeqjmkj metabolic 2000 panel - Serum or PlasmaCOMP METABOLIC PANEL Lab Routine 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, estrogen receptor positive (HCC) Expected: 02/09/2023 (Approximate), Expires: 04/11/2023[facility] Work Phone: Comment on above:Expected: 02/09/2023 (Approximate), Expires: 04/11/2023Start: 10-79-0003Hybcsidop monitoringPotassium monitoring [facility] HealthStart: 22-22-4327Ceswfkgpoa measurementCreatinine monitoringBlanchard Valley Health System [facility] HealthStart: 13-06-2987Mbucvtbny monitoringPotassium monitoringMercy Health Start: 11-29-2022 End: 85-52-1165GqeyenrakProMedica Flower Hospitaltart: 61-46-2482VPJHJGY DIRECTIVE DISCUSSIONADVANCE DIRECTIVE DISCUSSIONVeterans Health Administrationtart: 58-28-9691MZIWKFDZQM ASSESSMENTDEPRESSION ASSESSMENTVeterans Health Administrationtart: 07-27-2022 End: 51-63-5875Nlwmxyp encounter wdozigocq30/16/2022 Office Visit Gynecologic Oncology Emma Garza MD [address] [facility] [address] [place] [address] [facility] Gynecologic Oncology Services Start: 06-28-2022 End: 79-58-2618RXKSA VAGINAL CERVIX LESION EXCISION LASERVULVA VAGINAL CERVIX LESION EXCISION LASER Vaginal dysplasia 06/28/2022 9:04 AM [facility]ertart: 14-22-4645Zurspmvuyr measurementCreatinine monitoring [facility] Health Work Phone: start: 90-72-2419Oymsoftyj monitoringPotassium monitoringMercy Health Work Phone: start: 11-55-1347Afmmkcfswz measurementCreatinine monitoringMercy Health Work Phone: start: 84-73-1511Feikcwiuy vaccinationINFLUENZA (#1) [facility]tart: 88-29-0103Uujtrivil monitoringPotassium monitoringMercy Health Work Phone: start: 85-23-9246Zglclanlg vaccinationFlu vaccine (#1) [facility]: 01-14-2022 End: 79-60-9997Efmtjzg encounter /06/2022 Office Visit Gynecologic Oncology Latonia Burks PA-C [address] [facility] [address] [place], [place] [id number] [facility] Gynecologic Oncology ServicesStart: 12-13-2021 End: 45-42-8271VHTWERCDWUZJskycWilson Street Hospitaltart: 12-13-2021 End: 58-67-4220Fmnubfsoa to same day surgery centerSTVZ ORComment on above: VAGINECTOMY, CYSTOSCOPYCYSTOSCOPY, VAGINECTOMYStart: 78-20-6235Xhsnlklezw hospital visit by fudtqahzw90/04/2022 Hospital Encounter IP Unit Emma Garza MD [address] [facility] [address] [place], [place] [id number] [facility] ORStart: 12-13-2021 End: 10-31-8311Hsgxlqngznp complete removal vaginal wallVAGINECTOMY VAGINAL DYSPLASIA, RULE OUT CANCER 12/13/2021 10:20 AM EDMercy Health Clermont Hospitaltart: 70-79-4353Qmhczc Wellness Visit (AWV)Annual Wellness Visit (AWV) [facility] HospitalStart: 69-22-2373MKOKU-19 VACCINE (4 - Booster for Moderna series) COVID-19 VACCINE (4 - Booster for Moderna series)[facility]tart: 07-01-2021 End: 45-18-4918Pdbkiwz encounter qpzkmjdta21/21/2021 Office Visit Gynecologic Oncology Kin Abarca MD [address] [facility] [address] [place] [address] [phone] [facility] Gynecologic Oncology ServicesStart: 91-01-5197Wxhvidbqb vaccinationFlu vaccine (#1)[facility] Work Phone: start: 84-28-0291WRKMQ-19 Vaccine (3 - Booster for Moderna series)COVID-19 Vaccine (3 - Booster for Moderna series)[facility] Start: 06-33-1283Ejikuikwje A1c tzqzoessxtgPtE0LLrwchizcg ClinicStart: 34-30-9854Iemqkqvrgb A1c/Hemoglobin.total in UjscsYES1ORcfyvxcvp ClinicStart: 11-81-3894Ioeimrburtmy Vaccine: 50+ (2 of 2 - PCV)Pneumococcal Vaccine: 50+ (2 of 2 - PCV)[facility]tart: 07-83-9733Cpvhaqidlhle Vaccine: 65+ (2 - PCV) Pneumococcal Vaccine: 65+ (2 - PCV)[facility]tart: 81-60-5373Mixpsjbglwmq Vaccine: 65+ Years (2 of 2 - PCV)Pneumococcal Vaccine: 65+ Years (2 of 2 - PCV) [facility]Start: 43-00-1108VNAJODILVRJJ: 65+ (2 - PCV)PNEUMOCOCCAL: 65+ (2 - PCV)[facility]: 17-07-5979FMX Vaccine (1 - 1-dose 75+ series)RSV Vaccine (1 - 1-dose 75+ series)[facility]: 07-36-5575GMHO DENSITYBONE DENSITYVeterans Health Administrationtart: 11-26-0546Ycdz Density ScreeningBone Density ScreeningSt. Anthony's Hospitalrt: 45-74-9769Ujgyowjiwktu 65+ years Vaccine (1 - PCV)Pneumococcal 65+ years Vaccine (1 - PCV)ENIO BEVERLY [facility]: 55-12-9378Zwffhvjajpru 65+ years Vaccine (1 of 1 - PPSV23)Pneumococcal 65+ years Vaccine (1 of 1 - PPSV23)[facility]: 26-23-5995Dudhbcslx for osteoporosisBone Density ScreeningSt. Anthony's Hospitalrt: 98-70-6015Lesopehff B Vaccine (1 of 3 - Risk 3-dose series)Hepatitis B Vaccine (1 of 3 - Risk 3-dose series)[facility] Hospitalrt: 14-06-8690Omslmpqam for osteoporosisDEXA (modify frequency per FRAX score)[facility]: 70-70-6224Cknvvrdu Vaccine (1 of 2) Shingles Vaccine (1 of 2)[facility]: 94-18-0584DBYEISLD VACCINE (1 of 2) SHINGRIX VACCINE (1 of 2)[facility] Hospitalrt: 58-19-9821THcF/Tdap/Td vaccine (1 - Tdap)DTaP/Tdap/Td vaccine (1 - Tdap)[facility]: 44-69-5447Ixhjj microalbumin profileSt. Anthony's Hospitalrt: 81-03-7858WNKRHR PCP TEAM CHRONIC DISEASE VISITANNUAL PCP TEAM CHRONIC DISEASE VISITVeterans Health Administrationtart: 57-13-2053Zvwidcc ScreeningAnxiety ScreeningVeterans Health Administrationtart: 44-89-5655JN CONTROLLED (<130/80)BP CONTROLLED (<130/80)[facility]tart: 1958 Depression ScreeningDepression ScreeningVeterans Health Administrationtart: 1958 Hepatitis B surface antibody levelLDL CHOLESTEROLVeterans Health Administrationtart: 86-83-5532Qznboluim C screeningHepatitis C screenBON PREMIER HEALTH ATRIUM MEDICAL CENTERStart: 32-76-1763Lnkbqvmihm ScreenDepression ScreenHolmes County [facility] Memorial HospitalStart: comp foot exam completedDIABETIC FOOT EXAMVeterans Health Administrationtart: 92-21-6692Uxqqxvna foot examinationDiabetic Foot ExamVeterans Health Administrationtart: 86-06-8402Qmzbpvcw screeningDilated Retinal ExamVeterans Health Administrationtart: 42-69-6547Oookdpyxy B screeningURINE ALBUMIN:CREATININE RATIOVeterans Health Administrationtart: 1950 Hepatitis C antibody, confirmatory testDILATED RETINAL EXAMCl[facility] Memorial Hospital Start: 34-55-5029Vmybo panelHolmes County [facility] Memorial HospitalStart: 77-96-4335Vxlhhbvzw C screening Hepatitis C screenHolmes County Joel [facility] Memorial HospitalEKG 12 LeadEKG 12 Lead ECG STAT 06/28/2022 7:29 AM EDTBON KINGMAN [facility]AL MEDICAL CENTERCodeRyte [facility]ING HOSPITALFunny Or Die Phone: Homogenous nuclear Ab pattern [Titer] in Serum [facility] End: 49-22-9417PAITZZDP PACU OXYGEN THERAPY PROTOCOLInitiate PACU Oxygen Therapy Protocol Respiratory Care Routine Continuous until discontinued starting 12/13/2021[facility] CenterApptio Phone: Comment on above:Continuous until discontinued starting 12/13/2021 End: 87-93-9061DUWGUAHH PACU OXYGEN THERAPY PROTOCOLInitiate PACU Oxygen Therapy Protocol Respiratory Care Routine Continuous until discontinued starting 06/28/2022ON [facility] MEDICAL CENTERCodeRyte [facility] HOSPITALFunny Or Die Phone: comment on above:Continuous until discontinued starting 06/28/2022 End: 47-40-1310PCY DIAGNOSTIC BILATERALMAM DIAGNOSTIC BILATERAL Radiology Routine 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, estrogen receptor positive (HCC) 1 Occurrences starting 06/20/2023 until 07/19/2024 [facility] Work Phone: Comment on above:1 Occurrences starting 06/20/2023 until 07/19/2024Nuclear Ab [Titer] in SerumMount St. Mary Hospital Patient referralGrand [facility] Work Phone: Spirometry panelIncentive spirometry Respiratory Care Routine Every 2hr while awake until discontinued starting 12/13/2021[facility] CenterApptio Phone: comment on above:Every 2hr while awake until discontinued starting 12/13/2021urgical PathologySurgical Pathology Lab Routine Release Upon Ordering for 1 Occurrences starting 06/15/2021[facility] CenterApptio Phone: comfxvj on above:Release Upon Ordering for 1 Occurrences starting 06/15/2021urgical PathologySurgical Pathology Lab Routine Release Upon Ordering for 1 Occurrences starting 12/13/2021[facility] CenterApptio Phone: comment on above:Release Upon Ordering for 1 Occurrences starting 12/13/2021urgical PathologySurgical Pathology Lab Routine Vaginal dysplasia Release Upon Ordering for 1 Occurrences starting 06/28/2022ON [employer] Phone: comfqer on above:Release Upon Ordering for 1 Occurrences starting 06/28/2022 End: 03-89-3966KCHCYDSQ PATHOLOGY REPORTSURGICAL PATHOLOGY REPORT Lab Routine Once for 1 Occurrences starting 06/28/2022 until 06/28/2022ON [employer] Phone: comkizs on above:Once for 1 Occurrences starting 06/28/2022 until 06/28/2022 End: 76-29-9231EXMQOFJB PATHOLOGY REPORTSURGICAL PATHOLOGY REPORT Lab Routine Once for 1 Occurrences starting 11/24/2022 until 11/24/2022ON [employer] Phone: comment on above:Once for 1 Occurrences starting 11/24/2022 until 11/24/2022[facility] Immunizations Immunization DateImmunizationNotesCare OxpjwnlcJzrpwrmk40-32-2289xnaggklam virus vaccine, unspecified formulationPeyman Hensley DPM Work Phone: [facility] HospitalFlycnamhqc58-79-0148vwifvksdk virus vaccine, unspecified formulationMichael NILL GeneKaiser Permanente Medical CenterGvmpbjeh23-75-2874EEGJ-JjO-1 (COVID-19) zZOO-6458 vaccineMichael NILL Orchard HospitalSbigrjsj33-57-2919gmzpsxivu (HD-IIV4) vaccine, age 65+ yr, high dose, quadrivalent, PF (FLUZONE HIGH-DOSE)Wallace Stone MD Work Phone: [facility] HospitalJlhbex06-04-2648axvfsccmz virus vaccine, unspecified formulationWinnie Farris PA-C Work Phone: [facility] HospitalDhyhko84-37-3715MGBOD-39, Moderna, PF, 100mcg/0.5mLStv XrHolmes County Joel Pomerene Memorial HospitalZnkyrd32-56-0220MNDPA-05, Moderna, PF, 100mcg/0.5mLStv [facility] Work Phone: [phone] trivalent influenza vaccine, adjuvanted, preservative freeWallace Stone MD Work Phone: [facility] HospitalYqqbsi26-33-2630rfwqnhfwo, high dose seasonal, preservative-freeWallace Stone MD Work Phone: [facility] HospitalEtxhme81-28-2585igvufdpgygxq polysaccharide vaccine, 23 valentWallace Stone MD Work Phone: [facility] HospitalAtdqmm53-35-8642zmadsguor, high dose seasonal, preservative-freeWallace Stone MD Work Phone: [facility] HospitalTzmmhr41-17-0788xtzxiezqf, high dose seasonal, preservative-freeWallace Stone MD Work Phone: [facility] HospitalOzplsi39-53-2376ceyjctlcbsux polysaccharide vaccine, 23 valentWallace Stone MD Work Phone: [facility] HospitalDewaea63-85-1665zwyjcsedl virus vaccine, whole virusWallace Stone MD Work Phone: [facility] Payers DatePayer CategoryPayerPolicy [id number]-udf [id number] 2008Medicare [id number] Health Insurance 1.2.840.746628.1.13.693.2.7.9.761255.512259.05511-11-5019Dkzucso 1.2.840.002591.1.13.159.2.7.3.707740.51368-65-7264Xidoijl844912-46 1.2.840.017367.1.13.239.2.7.3.982010.315 [id number] 1.2.840.991353.1.13.239.2.7.3.152401.14850-01-7872Anda-[id number] [id number] 2.16.840.1.594195.49838349-91-1390Hofajlj8429818 2.16.840.1.220604.3.579.2.16807-98-2032Fcohply1341324 2.16.840.1.314501.3.579.2.04601-21-1182Ckimplo7823597 2.16.840.1.690536.3.579.2.02610-56-7285Oykapox4874750 2.16.840.1.208588.3.579.2.52061-62-5581Qxydxpz7066913 2.16.840.1.197680.3.579.2.39300-84-2206Ujsacwi9529808 2.16.840.1.912928.3.579.2.98607-49-3555Hafmzhn1424834 2.16.840.1.259729.3.579.2.94708-49-7437Fttnzzn8857439 2.16.840.1.362480.3.579.2.42236-67-0443Mdpqddo2969752 2.16.840.1.845632.3.579.2.69752-08-8493Pbnvdjl8640772 2.16840.1.446125.3.579.2.11399-19-6717Xgdwbwv1191013 2.16840.1.090293.3.579.2.19841-04-5832Lydnzrf4762063 2.16840.1.844874.3.579.2.84561-19-3910Vxpauuz3861023 2.16.840.1.410399.3.579.2.49917-76-4779Aidsrhw9670890 2.16.840.1.676198.3.579.2.28267-69-5041Jlipkhk9684953 2.16840.1.905187.3.579.2.58287-99-6096Azilyab8236132 2.16.840.1.167439.3.579.2.07929-09-3771Whhynjr0277514 2.16840.1.928724.3.579.2.32183-34-6918Aljrorz6697238 2.16.840.1.295502.3.579.2.24301-77-1584Hfxmddg5999407 2.16840.1.071622.3.579.2.51310-45-1849Uvqpdjf4423875 2.16.840.1.002348.3.579.2.58494-77-8223Uglbjoq0220712 2.16.840.1.383148.3.579.2.05610-63-4756Uxclmme5859500 2.16.840.1.215269.3.579.2.49009-75-3977Jbkxdpn4118243 2.16.840.1.822245.3.579.2.18701-13-1612Lvjvdfx1400431 2.16.840.1.765455.3.579.2.80512-07-2928Whobsgu8326409 2.16.840.1.319902.3.579.2.84726-51-4892Uzszyau1738050 2.16840.1.533504.3.579.2.34982-49-4646Cejuzas1907057 2.16.840.1.190776.3.579.2.65553-95-0127Sjzovht59052314 2.16.840.1.952420.3.579.2.46540-52-9745Bstncon40941611 2.16.840.1.995481.3.579.2.48860-47-6506Gffaudz74329082 2.16.840.1.707178.3.579.2.64010-34-5394Ivufoqv86774026 2.16.840.1.628149.3.579.2.47824-43-4982Ulcexxo01522245 2.16.840.1.677376.3.579.2.29952-84-7080Ifvbqst50187173 2.16.840.1.115654.3.579.2.52557-21-0803Cdoytnj13636972 2..840.1.019061.3.579.2.53347-12-1372Zbnpzfe328013321 2..840.1.058229.3.579.2.52746-21-7443Jlylfdi411340808 2..840.1.532430.3.579.2.36645-94-6885Gkgjiwl277045970 2.840.1.862990.3.579.2.54389-10-9694Jrlxqzv86820409 2..840.1.631545.3.579.2.676051-98-3434Xpktinx8700519 2.840.1.616776.3.579.2.386122-79-8135Qubehnx9969087 2.0.1.155405.3.579.2.143858-32-5369Vqouynv0846864 2.840.1.085366.3.579.2.384203-57-1561Edkmpdb941735363 2.840.1.163070.3.579.2.196Medicare270389004D 357m7052-76bj-84uv-3fu0-91502942i426Odwkptq03052958 2.840.1.433859.3.579.2.988Zbcwkvp30037187 2.16840.1.462112.3.579.2.531 Rpwzlac97919340 2.16840.1.169456.3.579.2.781Jphxaba13093440 2.16840.1.042435.3.579.2.102Ltyafgu65489222 2.840.1.443509.3.579.2.531 Social History DateTypeDetailFacilityStart: 05-12-2021 End: 76-51-7364Gtfzsnj smoking status NHISFormer smokerBlanchard Valley Health [facility] [employer] Phone: start: 09-11-1960 End: 48-65-4104Uzlksef of tobacco useCurrent smokerHolmes County Joel Pomerene Memorial HospitalStart: 09-11-1962 End: 77-85-9289Wsfiyjb of tobacco useCigarette SmokerHolmes County Joel Pomerene Memorial HospitalStart: 05-12-2021 End: 81-64-1997Kybnocw use and exposureNever usedUniversity Hospitals Geauga Medical Centermobintent [facility] Hospital DaytonStart: 05-12-2021 End: 77-56-1482Chyiovt intakeEx-drinker (finding)[employer] Phone: start: 36-31-7945Sty Assigned At BirthNot on fileUniversity Hospitals Geauga Medical CenterApptio Phone: start: 11-26-2021 End: 03-93-1407Clgltcnp to SARS-CoV-2 (event)Not sureHolmes County Joel Pomerene Memorial HospitalStart: 06-15-2021 End: 12-50-7255Mrwyfrratd smoked current (pack per day) - ReportedUniversity Hospitals Samaritan Medical Centertory of tobacco usePassive smokerBON SECOURS Moped Phone: start: 83-93-2318Gtlxejs smoking statusNeverGeneral Surgery BellevueStart: 02-14-2023 End: 17-02-5407Hsp Assigned At [facility] Centertart: 09-19-2022 End: 26-11-8453Luqfpac intakeCurrent non-drinker of alcohol (finding)[facility] Administrationtart: 64-11-8383Fmj Assigned At [facility] HospitalTobacco smoking status NHISTobacco smoking consumption unknownNODC HealthcareStart: 06-20-2024 End: 11-24-1299Pcycmbssn beverage intakeLifetime non-drinker (finding)[facility] HealthcareStart: 10-30-2024 End: 67-53-2025LbfPufgwg (finding)[facility] Medical Equipment Procedure CodeEquipment CodeEquipment Original TextEquipment IdentifierDates Aortogram, abdominal, with bilateral lower extremity runoffIR STENT BLUE 6 X 12 80CMFDAStart: 71-22-4216Mkrulmiuk, abdominal, with bilateral lower extremity runoffIR STENT SMART 6 X 120 120CMFDAStart: 18-59-0479Qtmrmwjep, abdominal, with bilateral lower extremity runoffIR STENT SMART 6 X 40 120CMFDAStart: 04-25-2019 Aortogram, abdominal, with bilateral lower extremity runoffIR STENT BLUE 6 X 12 80CMFDAStart: 23-21-2968Kyqaeacau, abdominal, with bilateral lower extremity runoffIR STENT SMART 6 X 120 120CMFDAStart: 68-34-2719Wsqqaxmuo, abdominal, with bilateral lower extremity runoffIR STENT SMART 6 X 40 120CMFDAStart: 04-25-2019 Aortogram, abdominal, with bilateral lower extremity runoffIR STENT BLUE 6 X 12 80CMFDAStart: 14-77-2558Oryhtfdrr, abdominal, with bilateral lower extremity runoffIR STENT SMART 6 X 120 120CMFDAStart: 28-79-8683Kbbspfpnn, abdominal, with bilateral lower extremity runoffIR STENT SMART 6 X 40 120CMFDAStart: 04-25-2019 Aortogram, abdominal, with bilateral lower extremity runoffIR STENT BLUE 6 X 12 80CMFDAStart: 97-74-3105Jsefxlpnn, abdominal, with bilateral lower extremity runoffIR STENT SMART 6 X 120 120CMFDAStart: 20-43-9706Nnstfuuoj, abdominal, with bilateral lower extremity runoffIR STENT SMART 6 X 40 120CMFDAStart: 04-25-2019 Aortogram, abdominal, with bilateral lower extremity runoffIR STENT BLUE 6 X 12 80CMFDAStart: 41-09-0237Qaljzwhoe, abdominal, with bilateral lower extremity runoffIR STENT SMART 6 X 120 120CMFDAStart: 19-18-8445Ugcfethfm, abdominal, with bilateral lower extremity runoffIR STENT SMART 6 X 40 120CMFDAStart: 04-25-2019 Aortogram, abdominal, with bilateral lower extremity runoffIR STENT BLUE 6 X 12 80CMFDAStart: 01-78-3368Kdflfnumv, abdominal, with bilateral lower extremity runoffIR STENT SMART 6 X 120 120CMFDAStart: 42-40-9799Cwokcdpiq, abdominal, with bilateral lower extremity runoffIR STENT SMART 6 X 40 120CMFDAStart: 04-25-2019 Aortogram, abdominal, with bilateral lower extremity runoffIR STENT BLUE 6 X 12 80CMFDAStart: 23-07-3782Wpdclblji, abdominal, with bilateral lower extremity runoffIR STENT SMART 6 X 120 120CMFDAStart: 23-85-4901Gvjfzthys, abdominal, with bilateral lower extremity runoffIR STENT SMART 6 X 40 120CMFDAStart: 04-25-2019 Aortogram, abdominal, with bilateral lower extremity runoffIR STENT BLUE 6 X 12 80CMFDAStart: 89-54-7894Zkvnnoouk, abdominal, with bilateral lower extremity runoffIR STENT SMART 6 X 120 120CMFDAStart: 48-86-6479Ostvihetd, abdominal, with bilateral lower extremity runoffIR STENT SMART 6 X 40 120CMFDAStart: 04-25-2019 Aortogram, abdominal, with bilateral lower extremity runoffIR STENT BLUE 6 X 12 80CMFDAStart: 28-96-2799Isllfogqx, abdominal, with bilateral lower extremity runoffIR STENT SMART 6 X 120 120CMFDAStart: 29-17-3680Vlwbpqjmu, abdominal, with bilateral lower extremity runoffIR STENT SMART 6 X 40 120CMFDAStart: 04-25-2019 Functional Status CatkCntwwjf[id number] StatusN/AGeneral Surgery Opal Clinical Notes 05-12-2021 to 07-03-2025 Note Date & [id number] History of Present illness Narrative* Peyman Hensley, [...] No Food Insecurity (09/12/2024) Received from [facility] Hunger Vital Sign Within the past 12 months, you worried that your food would run out before you got the money to buymore.: Never true Within the past 12 months, the food you bought just didn't last and you didn't have money to get more.: Never true Transportation Needs: No Transportation Needs (09/12/2024) Received from [facility] Transportation In the past 12 months, [...] Not At Risk (09/12/2024) Received from [facility] Humiliation, Afraid, Rape, and Kick questionnaire [...] Stability: Low Risk (09/12/2024) Received from [facility] Housing Stability Vital Sign In the last 12 months, was there a time when you were not able to pay the mortgage or rent on time?: No In the past 12 months, how many times have you moved where you were living?: 1 At any time in the past 12 months, were you homeless or living in a senior living (including now)?: No ROS: General: denies fever, [...] and negative PT pedal pulses NEURO: 5.07 [place] Sybil monofilament test intact to digits and forefoot bilaterally 125Hz tuning fork diminished to 1st MPJ bilaterally ORTHO: Positive pain on palpation to toenails of the left 1,2,3,4,5 toes and right 1,2,3,4,5 toes ASSESSMENT 1. Diabetes mellitus due to underlying condition with diabetic polyneuropathy, 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 nursing home insulin use (HCC) 2. Pain due to [...] future Peyman Hensley DPM documented in this encounterLakeland Regional [id number] NoteUT Electrophysiology Consult Note [place] Cardiology [facility] Reason for visit: s/p [...] today shows good function. Patient underwent the SHIPPING TRACK SUPERVISOR placement on 07/10/2024 and subsequently underwent [...] in A-fib. She was just [facility]. Eliquis and aspirin [...] fibrillation (CMS/HCC) CAD (coronary artery disease) Cancer ([facility]/HCC) CHF (congestive heart failure) ([facility]) Chronic kidney disease COPD (chronic obstructive pulmonary disease) ([facility]/HCC) Diabetes mellitus ([facility]) GI bleed Heart murmur Hyperlipidemia [...] Other Tramadol Other Oxycodo (more content not included)...[facility] 11-21-2024 History of Present illness Narrative* [...] No Food Insecurity (09/12/2024) Received from [facility] Hunger Vital Sign Within the past 12 months, you worried that your food would run out before you got the money to buymore.: Never true Within the past 12 months, the food you bought just didn't last and you didn't have money to get more.: Never true Transportation Needs: No Transportation Needs (09/12/2024) Received from [facility] Transportation In the past 12 months, [...] Not At Risk (09/12/2024) Received from [facility] Humiliation, Afraid, Rape, and Kick questionnaire Fear of Current or Ex-Partner: No Emotionally Abused: No Physically Abused: No Sexually Abused: No Housing Stability: Low Risk (09/12/2024) Received from [facility] Housing Stability Vital Sign In the last 12 months, was there a time when you were not able to pay the mortgage or rent on time?: No In the past 12 months, how many times have you moved where you were living?: 1 At any time in the past 12 months, were you homeless or living in a senior living (including now)?: No ROS: General: denies fever, [...] raised borders of unknown origin. Left anterior barun has a healed area of ulceration with negative openings VASC: Negative DP and negative PT pedal pulses NEURO: 5.07 [place] Sybil monofilament test intact to digits and forefoot bilaterally 125Hz tuning fork diminished to 1st MPJ bilaterally ORTHO: Positive pain on palpation to toenails of the left 1,2,3,4,5 toes and right 1,2,3,4,5 toes ASSESSMENT 1. Diabetes mellitus due to underlying condition with diabetic polyneuropathy, 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 nursing home insulin use ([facility]) 2. Pain due to onychomycosis of toenails of both feet 3. Venous insufficiency 4. Neoplasm of uncertain behavior of skin 5. 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 ([facility]) PLAN Discussed proper foot care with patient [...] patientdeclined Peyman Hensley DPM documented in this encounterLakeland Regional [id number] NoteUT Electrophysiology Consult Note [place] [facility]iology [facility] Reason for visit: s/p [...] today shows good function. Patient underwent the SHIPPING TRACK SUPERVISOR placement on 07/10/2024 and subsequently underwent [...] in A-fib. [facility] was just [facility]. Eliquis and aspirin [...] disease) Cancer (CMS/HCC) CHF (congestive heart failure) (CMS/[facility]) Chronic kidney disease COPD (chronic obstructive pulmonary disease) ([facility]) Diabetes mellitus ([facility]) GI bleed Heart murmur Hyperlipidemia Hypertension PVD (peripheral vascular disease) PSH: Past Surgical History: Procedure Laterality Date CARDIAC CATHETERIZATION 12/15/2011, 08/23/2010, 12/30/2004, CORONARY STENT PLACEMENT HYSTERECTOMY 03/11/2005 VASCULAR SURGERY SH: Social Determinants of Health Tobacco Use: Medium Risk (10/08/2024) Received from [facility] Patient History Smoking Tobacco Use: [...] TIMES DAILY NEEDED luba (more content not included)...[facility] 10-09-2024 Telephone encounter Note* Telephone Encounter - Vernell Dey RN - 10/09/2024 9:01 AM EST Pt informed of AV message, once verified, using 2 patient identifiers. She will obtain and start B12, as recommended. Patient denies any questions, needs or concerns at this time. Appointment verified. Vernell Dey RN [facility]01-29-2025 Miscellaneous Notes* Telephone Encounter - Vernell [...] B12 levels. Thank you. documented in this encounterClinton [facility] Hospital01-29-2025 Telephone encounter Note * Telephone Encounter - Vaibhav Ashton MD - 10/09/2024 8:38 AM EST Please tell her to start OTC B12 supplements 1000mcg one tab daily for the low B12 levels. Thank you. [facility]01-28-2025 Instructions* Patient Instructions* Vaibhav Ashton MD - 10/08/2024 1:23 PM EST Labs today Arimidex sent to pharmacy F/u in 6 months documented in this encounterClinton [facility] Hospital01-28-2025 History of Present illness Narrative* Vaibhav Ashton MD - 10/08/2024 1:00 PM EST Images from the original note were not included. PATIENT NAME: Harman Mcleod [facility] NO.: [id number] ATTENDING PHYSICIAN: Vaibhav Ashton MD DATE OF SERVICE: 10/08/24 Some of the elements of this note have been copied from Winnie MILLAN previous progress note dated 06/20/23. All the information has been reviewed carefully. CC: Follow up Diagnosis: T1b, N0, M0- R breast, Tumor 9 mm, Grade 2, Margins negative, Negative LVI, 2 SNL negative, ER and CA >95% positive, Her2 IHC 1+ Treatment History: [...] in Jun 2024 - Mammogram done at [facility] - On eliquis for Afib [...] Range Status 06/20/2023 4.8 % Final Abs [place] Date Value Ref Range Status 06/20/2023 0.49 [...] follow up. R Breast T1b,N0,M0- ER and CA >95% positive and Her-2 IHC 1+ tumor [...] months. 3.Vulvar high grade dysplasia- Seen by [facility] in the past. Not following currently. 4 CHF- S/p AICD placement in Jun 2024. 5. Afib on eliquis 6. CKD 7. F/u with PCP, cardiology and other consultants. F/u in 6 months. Total time spent 30 min. Vaibhav Ashton MD [facility] Hematology/Oncology CC: MD Mateus Spicer MD documented in this encounterClinton Memorial Hospital01-28-2025 NoteHNO ID: [id number] Author: VAIBHAV ASHTON MD Service: ? Author Type: Physician Type: Progress Notes Filed: 10/08/2024 14:03 Note Text: PATIENT NAME: Harman Mcleod [facility] NO.: [id number] ATTENDING PHYSICIAN: Vaibhav Ashton MD DATE OF SERVICE: 10/08/24 Some of the elements of this note have been copied from Winnie MILLAN previous progress note dated 06/20/23. All the information has been reviewed carefully. CC: Follow up Diagnosis: T1b, N0, M0- R breast, Tumor 9 mm, Grade 2, Margins negative, Negative LVI, 2 SNL negative, ER and CA >95% positive, Her2 IHC 1+ Treatment History: [...] in Jun 2024 - Mammogram done at [facility] - On eliquis for Afib [...] Total (g/dL) Date Value (more content not included)...[facility]01-24-2025 Telephone encounter Note* Telephone Encounter - Carlos Brooks - 10/04/2024 2:27 PM EST Patient has been scheduled w/ Dr. Guzman on Sunday 10/08. Patient notified. Thanks! Carlos Brooks [facility]01-24-2025 Miscellaneous Notes* Telephone Encounter - Carlos [...] they would like to transfer care to [facility] * Telephone Encounter - Evita Deshpande RN - 10/04/2024 12:46 PM EST Per 06/20/23 [facility] oncology: pt is to return in about 4 months (around 10/21/2023) for MD miquel visit. Pt has been lost to follow up NEEDS visit before medication can be renewed: OV Dr Stone in [place]- if too far for pt to drive can forward to [facility] team for transition of care with new provider Labs day prior (CBC/diff, CMP) [phone] (home) * Telephone Encounter - Maylin Sandoval [...] that he practices out of the [facility] location. I made heraware that I will send a message and she is to expect a call. Patient and daughter agree with plan and appreciate the time. Maylin Sandoval RN documented in this encounterClinton [facility] Hospital01-24-2025 Telephone encounter Note * Telephone Encounter [...] they would like to transfer care to [facility]01-24-2025 Telephone encounter Note* Telephone Encounter - Evita Deshpande RN - 10/04/2024 12:46 PM EST Per 06/20/23 [facility] oncology: pt is to return in about 4 months (around 10/21/2023) for MD miquel visit. Pt has been lost to follow up NEEDS visit before medication can be renewed: OV Dr Stone in [place]- if too far for pt to drive can forward to [facility] team for transition of care with new provider Labs day prior (CBC/diff, CMP) [phone] (home) [facility]01-24-2025 Telephone encounter Note* Telephone Encounter - [...] that he practices out of the [facility] location. I made heraware that I will send a message and she is to expect a call. Patient and daughter agree with plan and appreciate the time. Maylin Sandoval RN [facility]01-14-2025 NoteUT Electrophysiology Consult Note [place] Cardiology - [facility] Reason for visit: s/p CRTD and [...] today shows good function. Patient underwent the SHIPPING TRACK SUPERVISOR placement on 07/10/2024 and subsequently underwent [...] in A-fib. She was just [facility]. Eliquis and aspirin [...] kidney disease COPD (chronic obstructive pulmonary disease) ([facility]) Diabetes mellitus ([facility]) GI bleed Heart murmur Hyperlipidemia Hypertension PVD (peripheral vascular disease) ([facility]) PSH: Past Surgical History: Procedure [...] apixaban (Eliquis) 2.5 mg (more content not included)...[facility]01-02-2025 NoteUT Electrophysiology Consult Note [place] Cardiology [facility] Reason for visit: s/p [...] today shows good function. Patient underwent the SHIPPING TRACK SUPERVISOR placement on 07/10/2024 and subsequently underwent [...] in A-fib. She was just discharged [facility]. Eliquis and aspirin [...] Diagnosis Date Abnormal ECG Arrhythmia Atrial fibrillation ([facility]/HCC) CAD (coronary artery disease) Cancer ([facility]/HCC) CHF (congestive heart failure) ([facility]/HCC) Chronic kidney disease COPD (chronic obstructive pulmonary disease) ([facility]/HCC) Diabetes mellitus ([facility]/HCC) GI bleed Heart murmur Hyperlipidemia Hypertension PVD (peripheral vascular disease) ([facility]) PSH: Past Surgical History: Procedure [...] 1 tablet (2.5 mg) (more content not included)...[facility]12-23-2024 NoteUT Electrophysiology Consult Note [place] Cardiology [facility] Reason for visit: s/p [...] today shows good function. Patient underwent the SHIPPING TRACK SUPERVISOR placement on 07/10/2024 and subsequently underwent [...] in A-fib. She was just [facility]. Eliquis and aspirin [...] murmur Hyperlipidemia Hypertension PVD (peripheral vascular disease) ([facility]/HCC) PSH: Past Surgical History: Procedure Laterality Date [...] on file Intimate Partner Violence: Unknown (11/02/2023) [place] Safety & Environment Fear of Current or [...] daily. fish oil concen (more content not included)...[facility]12-19-2024 History of Present illness Narrative* Peyman [...] 4 months after hitting object. Currently sees [facility] wound center every 3 weeks with [...] Partner Violence: Unknown (11/02/2023) Received from [facility], [facility] [place] Safety [place] Fear of [...] and negative PT pedal pulses NEURO: 5.07 [place] Sybil monofilament test intact to digits and forefoot bilaterally 125Hz tuning fork diminished to 1st MPJ bilaterally ORTHO: Positive pain on palpation to nails 1 through 10 Positive pain palpation left anterior braun ASSESSMENT 1. 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 Diabetes mellitus due to underlying condition with diabetic polyneuropathy, 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 ferry terminal agent insulin use ([facility]) 3. Pain due to onychomycosis of toenails [...] DSD applied . Patient currently has the [facility] wound center applying Medihoney every other day. Did discuss possibility if no improvement to contact Podiatry for advanced wound care treatments or if any signs of infection Peyman Hensley DPM documented in this encounterLakeland Regional [id number] NoteUT Electrophysiology Consult Note [place] [facility]iology [facility] Reason for visit: s/p [...] today shows good function. Patient underwent the SHIPPING TRACK SUPERVISOR placement on 07/10/2024 and subsequently underwent [...] in A-fib. She was just [facility]. Eliquis and aspirin [...] fibrillation (CMS/HCC) CAD (coronary artery disease) Cancer ([facility]/HCC) CHF (congestive heart failure) ([facility]/HCC) Chronic kidney disease COPD (chronic obstructive pulmonary disease) ([facility]/HCC) Diabetes mellitus ([facility]/HCC) GI bleed Heart murmur Hyperlipidemia Hypertension PVD (peripheral vascular disease) ([facility]/HCC) PSH: Past Surgical History: Procedure Laterality Date CARDIAC CATHETERIZATION 12/15/2011, 08/23/2010, 12/30/2004, CORONARY STENT PLACEMENT HYSTERECTOMY 03/11/2005 VASCULAR SURGERY SH: Social Determinants of Health Tobacco Use: Medium Risk (06/20/2024) [facility] Patient History Smoking Tobacco Use: Former Smokeless Tobacco Use: Never Passive Exposure: Not on file Alcohol Use: Not on file Financial Resource Strain: Not on file Food Insecurity: Not on file Transportation Needs: Not on file Physical Activity: Not on file Stress: Not on file Social Connections: Not on file Intimate Partner Violence: Unknown (11/02/2023) [place] Safety [place] Fear of Current or Ex-Partner: Not on file Emotionally Abused: Not on file Physically Abused: Not on file Sexually Abused: Not on file Physically or Sexually Abused: Not on file Depression: Not at risk (02/14/2023) Received from [facility] PHQ-2 PHQ-2 score: 0 Housing [...] mouth two times daily. fish oil concentrate ([place]-3) 120-180 mg capsule Take 1,000 mg by [...] >130 insulin glargine (L (more content not included)...[facility]12-02-2024 NoteAV NODE ABLATION PROCEDURE REPORT DATE OF PROCEDURE: 08/12/2024 PERFORMING PHYSICIAN: Dr. Brian Kern HOG WORKER: SAVAGE CONSENT: Patient NAME OF THE PROCEDURE: [...] in A-fib. She was just [facility]. Eliquis and aspirin have been put on hold. She was originally scheduled for DCCV today with Dr. Keyes. Jardiance was stopped, and metoprolol was reduced to 100mg daily.She underwent SHIPPING TRACK SUPERVISOR on 07/10/24 and now presents for [...] stored. Venous access was obtained and a [employer] sheath was placed in the right femoral [...] 3. Continue anticoagulation. Brian Kern MD Cardiac Electrophysiology.[facility]12-02-2024 Note Patient: Harman Mcleod Procedure Information Date/Time: 08/12/24 1230 Procedure: AV node ablation - PC APPROVED Location: [facility] SENIOR COMMUNICATIONS ENGINEER 1 EP / [facility] (Cath) Providers: Brian Kern MD Clinical information reviewed: Allergies Meds OB Status Physical Exam Airway Mallampati: II TM distance: >3 FB Neck ROM: full Cardiovascular Dental Pulmonary Abdominal Anesthesia Plan ASA 2 CSE Additional Equipment RequestsMer[facility]10-10-2024 History of Present illness Narrative* Peyman [...] 2 months after hitting object. Currently sees [facility] wound center every 3 weeks with [...] Partner Violence: Unknown (11/02/2023) Received from [facility], [facility] [place] Safety [place] Fear of [...] and negative PT pedal pulses NEURO: 5.07 [place] Sybil monofilament test intact to digits and forefoot bilaterally 125Hz tuning fork diminished to 1st MPJ bilaterally ORTHO: Positive pain on palpation to nails 1 through 10 Positive pain palpation left anterior braun ASSESSMENT 1. Venous insufficiency 2. Hav (hallux abducto valgus), left 3. Acquired deformity of left toe 4. 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 ([facility]) 5. Diabetes mellitus due to underlying condition with diabetic polyneuropathy, 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 nursing home insulin use ([facility]) 6. Pain due to onychomycosis [...] DSD applied . Patient currently has the [facility] wound center applying Medihoney every other day. Did discuss possibility if no improvement to contact Podiatry for advanced wound care treatments or if any signs of infection Peyman Hensley DPM documented in this encounterLakeland Regional [id number] Progress note Author Janell Mathews [facility] April 10, 2024 10:30amNote Date/TimeJuly 2023 10:30[place] [address] Wound Center Provider Note Signed Patient: Harman Mcleod MR#: [id number] : 1940 Acct:[id number] Age/Sex: 83 / F Copies to: MD Janell Oliver, INSURANCE INVESTIGATOR~ HPI Date of Visit Date of Visit: Date of Service: 04/10/2024 Time of Service: : Narrative HPI: 12/11/23 Harman is an 83 year old presenting to [facility] wound care for an initial visit [...] for the entire visit, she has [facility], the left leg will be [...] wrapped again today for good measure and [facility] can remove next week and start stockings or wraps if something isopen on the legs, family and friend present for the visit, does not need to return to the office unless new ulcers do develop, spoke about her getting established with a day care assistant and so hopefully she will follow through [...] instructedto go to the ED per the [facility] nurse but she had refused [...] bilateral lower leg ulcers Mode of Arrival/ Powder Shoveler: Friend Assistive Device Used Today: Walker Lives with:: Significant Other Appetite Description: Within Normal Limits Who helps w/ dressing change?: Home Health Why Do You Need Help?: Can't Reach Ulcer, Limited mobility, Unsafe leave home byself and Taxing effort to leave home Smoking Status: Former smoker [facility] Medical History (Updated 04/10/24 @ [...] [facility] clean[facility] of [facility] artery [facility] Problem [facility] Family History (Updated 06/01/23 @ 08:45 [...] DAILY 04/25/19 [History Confirmed 12/11/23] omega-3s 300 ot-zon-zrm-other [id number] oil 1,000 mg capsule ([place]-3 Fish Oil) 2 cap PO BID 04/25/19 [...] Stasis Ulcer Thickness: Skin Breakdown Bed Appearance: Century Percent of Wound Bed Granulated/Red: 100 Percent [...] <Electronically signed by FERNY Mathews> 04/10/24 1030 [facility] Work Phone: 1(449) 692-556607-16-2024 Progress note Author Janell Mathews [facility] March 26, 2024 9:51amNote Date/TimeJuly 2023 9:51[place] [address] Wound Center Provider Note Signed Patient: Harman Mcleod MR#: [id number] : 1940 Acct:[id number] Age/Sex: 83 / F Copies to: MD Janell Oliver APRN~ HPI Date of Visit Date of Visit: Date of Service: 03/26/2024 Time of Service: 09:47 Narrative HPI: 12/11/23 Harman is an 83 year old presenting to [facility] wound care for an initial visit [...] for the entire visit, she has [facility], the left leg will be [...] wrapped again today for good measure and [facility] can remove next week and start stockings or wraps if something isopen on the legs, family and friend present for the visit, does not need to return to the office unless new ulcers do develop, spoke about her getting established with a day care assistant and so hopefully she will follow through [...] instructedto go to the ED per the [facility] nurse but she had refused [...] bilateral lower leg ulcers Mode of Arrival/ Powder Shoveler: Friend Assistive Device Used Today: Walker Lives with:: Significant Other Appetite Description: Within Normal Limits Who helps w/ dressing change?: Home Health Why Do You Need Help?: Can't Reach Ulcer, Limited mobility, Unsafe leave home byself and Taxing effort to leave home Smoking Status: Former smoker [facility] Medical History (Updated 02/13/24 @ [...] DAILY 04/25/19 [History Confirmed 12/11/23] omega-3s 300 vh-tab-vlj-other eyacx0b-ivqx oil 1,000 mg capsule ([place]-3 Fish Oil) 2 cap PO BID 04/25/19 [...] Breakdown Bed Appearance: Epithelial Tissue or Bridge, Century and Yellow Percent of Wound Bed Granulated/Red: [...] APRN DD/ Signed By: <Electronically signed by EFRNY Mathews> 03/26/24 0951 [facility] Work Phone: 1(122) 907-594106-04-2024 Progress note Author Janell Mathews [facility] February 13, 2024 10:55amNote Date/TimeJune 2023 10:55[place] [address] Wound Center Provider Note Signed Patient: Harman Mcleod MR#: [id number] : 1940 Acct:[id number] Age/Sex: 83 / F Copies to: MD Janell Oliver, INSURANCE INVESTIGATOR~ HPI Date of Visit Date of Visit: Date of Service: 02/13/2024 Time of Service: 10:47 Narrative HPI: 12/11/23 Harman is an 83 year old presenting to [facility] for an initial visit [...] present for the entire visit, she has [facility], the left leg will be treated [...] wrapped again today for good measure and [facility] can remove next week and start stockings or wraps if something isopen on the legs, family and friend present for the visit, does not need to return to the office unless new ulcers do develop, spoke about her getting established with a day care assistant and so hopefully she will follow through [...] instructedto go to the ED per the [facility] nurse but she had refused this and wanted to come to this appt instead Subjective Pain Left Leg: Pain Description: Intermittent Pain Intensity: 0 Wound/Ulcer History When did wound start?: August 2023 bilateral lower leg ulcers Mode of Arrival/ Powder Shoveler: Friend Assistive Device Used Today: Walker Lives with:: Significant Other Appetite Description: Within Normal Limits Who helps w/ dressing change?: Home Health Why Do You Need Help?: Can't Reach Ulcer, Limited mobility, Unsafe leave home byself and Taxing effort to leave home Smoking Status: Former smoker [facility] Medical History (Updated 02/13/24 @ [...] List clean-up per request of Phys. [facility] Family History (Updated 06/01/23 @ [...] DAILY 04/25/19 [History Confirmed 12/11/23] omega-3s 300 vk-fli-qdj-other izcaq2v-tkcj oil 1,000 mg capsule ([place]-3 Fish Oil) 2 cap PO BID 04/25/19 [...] Posterior Thigh: Bed Appearance: Beefy Red and Century Percent of Wound Bed Granulated/Red: 0 Percent [...] <Electronically signed by FERNY Mathews> 02/13/24 1055 [facility] Work Phone: 1(989) 838-497005-21-2024 Progress note Author Janell Mathews [facility] January 30, 2024 10:44amNote Date/TimeMay 2023 10:44[place] [address] Wound Center Provider Note Signed Patient: Harman Mcleod MR#: [id number] : 1940 Acct:[id number] Age/Sex: 83 / F Copies to: MD Janell Oliver, FERNY~ HPI Date of Visit Date of Visit: Date of Service: 01/30/2024 Time of Service: 10:37 Narrative HPI: 12/11/23 Harman is an 83 year old presenting to [facility] for an initial visit [...] present for the entire visit, she has [facility], the left leg will be treated [...] wrapped again today for good measure and [facility] can remove next week and start stockings or wraps if something isopen on the legs, family and friend present for the visit, does not need to return to the office unless new ulcers do develop, spoke about her getting established with a day care assistant and so hopefully she will follow through [...] bilateral lower leg ulcers Mode of Arrival/ Powder Shoveler: Friend Assistive Device Used Today: Walker Lives with:: Significant Other Appetite Description: Within Normal Limits Who helps w/ dressing change?: Home Health Why Do You Need Help?: Can't Reach Ulcer, Limited mobility, Unsafe leave home byself and Taxing effort to leave home Smoking Status: Former smoker [facility] Medical History (Updated 01/30/24 @ [...] DAILY 04/25/19 [History Confirmed 12/11/23] omega-3s 300 ra-boz-biw-other ajbeh0z-gxif oil 1,000 mg capsule ([place]-3 Fish Oil) 2 cap PO BID 04/25/19 [...] Posterior Thigh: Bed Appearance: Beefy Red and Century Percent of Wound Bed Granulated/Red: 100 Percent [...] <Electronically signed by FERNY Mathews> 01/30/24 1044 [facility] Work Phone: 1(863) 101-238104-18-2024 Progress note Author Janell Mathews [facility] December 28, 2023 11:22amNote Date/TimeApril 2023 11:22[place] [address] Wound Center Provider Note Signed Patient: Harman Mcleod MR#: [id number] : 1940 Acct:[id number] Age/Sex: 83 / F Copies to: MD Janell Oliver, FERNY~ HPI Date of Visit Date of Visit: Date of Service: 12/28/2023 Time of Service: 11:19 Narrative HPI: 12/11/23 Harman is an 83 year old presenting to [facility] for an initial visit [...] present for the entire visit, she has [facility], the left leg will be treated [...] spoke about her getting established with a day care assistant and so hopefully she will follow through on that, spoke about compression socks too forlong term use Subjective Pain Left Leg: Pain Intensity: 0 Wound/Ulcer History When did wound start?: August 2023 bilateral lower leg ulcers Mode of Arrival/ Powder Shoveler: Friend Assistive Device Used Today: Walker Lives with:: Significant Other Appetite Description: Within Normal Limits Who helps w/ dressing change?: Home Health Why Do You Need Help?: Can't Reach Ulcer, Limited mobility, Unsafe leave home byself and Taxing effort to leave home Smoking Status: Former smoker [facility] Medical History (Updated 12/11/23 @ [...] List clean-up per request of Phys. [facility]HR [facility] Surgical History History of bladder suspension procedure Problem List clean-up per request of Phys. EHR Cmte H/O: hysterectomy Problem List clean-up per request of Phys. EHR Cmte History of appendectomy Problem List clean-up per request of Phys. [facility] History of heart artery stent Problem List clean-up per request of Phys. [facility]HR [facility] Family History (Updated 06/01/23 @ [...] DAILY 04/25/19 [History Confirmed 12/11/23] omega-3s 300 cy-oig-ngb-other fbgyd3f-pjnj oil 1,000 mg capsule ([place]-3 Fish Oil) 2 cap PO BID 04/25/19 [...] <Electronically signed by FERNY Mathews> 12/28/23 1122 [facility] Work Phone: 1(167) 952-283004-01-2024 Progress note Author Janell Mathews [facility] December 11, 2023 9:35amNote Date/TimeApr2023 9:35[place] [address] Wound Center Provider Note Signed Patient: Harman Mcleod MR#: [id number] : 1940 Acct:[id number] Age/Sex: 83 / F Copies to: MD Janell Oliver APRN~ HPI Date of Visit Date of Visit: Date of Service: 12/11/2023 Time of Service: 09:27 Narrative HPI: 12/11/23 Harman is an 83 year old presenting to [facility] for an initial visit [...] for the entire visit, she has [facility], the left leg will be [...] bilateral lower leg ulcers Mode of Arrival/ Powder Shoveler: Friend Assistive Device Used Today: Walker Lives with:: Significant Other Appetite Description: Within Normal Limits Who helps w/ dressing change?: Home Health Why Do You Need Help?: Can't Reach Ulcer, Limited mobility, Unsafe leave home byself and Taxing effort to leave home Smoking Status: Former smoker [facility] Medical History (Updated 12/11/23 @ 09:30 by Janell Mathews APRN) Leg ulcer, left Cataract Problem List clean-up per request of Phys. 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 [facility]HR [facility] Vaginal lesion Problem List clean-up per request of Phys. EHR Cmte PAD (peripheral artery disease) Problem List clean-up per request of Phys. EHR Cmte CAD (coronary artery disease) Problem List clean-up per request of Phys. EHR Cmte Dyslipidemia Problem List clean-up per request of Phys. EHR Cmte Hyperthyroidism Problem List clean-up per request of Phys. [facility] Diabetes mellitus Problem List clean-up per request of Phys. EHR Cmte Hypertension Problem List clean-up per request of Phys. EHR [facility] Surgical History History of bladder suspension procedure Problem List clean-up per request of Phys. EHR [facility] H/O: hysterectomy Problem List clean-up per request of Phys. EHR [facility] History of appendectomy Problem List clean-up per request of Phys. [facility]HR [facility] History of heart artery stent Problem List clean-up per request of Phys. [facility]HR [facility] Family History (Updated 06/01/23 @ [...] DAILY 04/25/19 [History Confirmed 12/11/23] omega-3s 300 fp-nlg-uwt-other iaaye0z-dupv oil 1,000 mg capsule ([place]-3 Fish Oil) 2 cap PO BID 04/25/19 [...] Breakdown Bed Appearance: Epithelial Tissue or Bridge, Century and Yellow Percent of Wound Bed Granulated/Red: [...] <Electronically signed by FERNY Mathews> 12/11/23 0935 [facility] Work Phone: [phone]) 808-589010-10-2023 Nurse Note* Lina Lopes MA - 06/20/2023 2:49 PM EDT Patient would like to know if she needs a mammogram? She was told in Oct that she would need one in6 months. Lina Lopes MA documented in this [facility]Cl[facility] History of Present illness Narrative* Winnie Farris PA-C - 06/20/2023 2:30 PM EDT Images from the original note were not included. PATIENT NAME: Harman Mcleod CLINIC NO.: [id number] ATTENDING PHYSICIAN: Wallace Stone MD DATE OF [...] Negative LVI, 2 SNL negative, ER and CA >95% positive, Her2 IHC 1+ Treatment History: [...] Range Status 06/20/2023 4.8 % Final Abs [place] Date Value Ref Range Status 06/20/2023 0.49 [...] follow up. R Breast T1b,N0,M0- ER and CA >95% positive and Her-2 IHC 1+ tumor post Lumpectomy and SNL 10/2022. Reviewed path and she elected not to proceed with XRT and started Arimidex in 11/2022. Continues to tolerate well. Mammogram in 07/2023 (order placed). See us in 4 months. Plan is for 5 years of AI therapy Osteoporosis- On Prolia started 08/[address] Perry Vulvar high grade dysplasia- Follows Battery Charger Tester Onc at [facility] R Leg swelling and pain and h/o PVD- Follows vascular HTN--managed by PCP Winnie Farris PA-C CC: MD Mateus Spicer MD documented in this encounterClinton [facility]09-[facility]-2023 Evaluation note* Encounter Date Diagnosis Assessment [...] In addition I took her to the Decision Analyst and performed a right iliac venogram which [...] offer her a second opinion at the [facility] vascular medicine program. She declined. I will see her as needed in the future. 20:20 Mobile Other 06-29-2023 Evaluation note* Encounter Date Diagnosis [...] to call us with any concerns whatsoever. 20:20 Mobile Other 06-06-2023 History of Present illness Narrative* Wallace Stone MD - 02/14/2023 10:37 AM EDT Images from the original note were not included. PATIENT NAME: Harman Mcleod CLINIC NO.: [id number] ATTENDING PHYSICIAN: Wallace Stone MD DATE OF [...] Negative LVI, 2 SNL negative, ER and CA >95% positive, Her2 IHC 1+ Treatment History: [...] Range Status 02/14/2023 8.3 % Final Abs [place] Date Value Ref Range Status 02/14/2023 0.86 [...] follow up. R Breast T1b,N0,M0- ER and CA >95% positive and Her-2 IHC 1+ tumor post Lumpectomy and SNL 10/2022. Reviewed path and she elected not to proceed with XRT and started Arimidex in 11/2022 and toleraing well. Plan for 5 years of therapy. Osteoporosis- On Prolia started 08/[address] Perry Vulvar high grade dysplasia- Follows Battery Charger Tester Onc at [facility] R Leg swelling and pain and h/o PVD- Follows vascular HTN Rash- refer to Derm Thank you for the kind referral. If there are any questions and or concerns please do not hesitate to contact me at [phone]. Wallace Stone MD Hematology/Medical Oncology [facility] I spent a total of 30 minutes on the date of the service which included preparing to see the patient, susi-zx-qgkm patient care, completing clinical documentation, obtaining and/or reviewing separately obtained history, performing a medically appropriate examination, counseling and educating the pat ient/family/caregiver, and ordering medications, tests, or procedures. CC: MD Mateus Spicer MD documented in this encounterClinton [facility] Hospital03-29-2023 Evaluation note* Encounter Date Diagnosis Assessment [...] her primary care provideras well as her die grinder. We will continue to follow her along and see her again in a couple of months and see how she is doing with her pumps, conservative efforts, and weight management. She knows to call us in the meantime with any other additional concerns or complaints. 20:20 Mobile Other 03-21-[address] [facility] Evaluation note* Encounter Date Diagnosis Assessment [...] specified soft tissue disorders (ICD-10 - M79.89) 20:20 Mobile Other 03-08-2023 Miscellaneous Notes* Telephone Encounter - Adriana Pereira [facility] - 11/16/2022 8:40 AM EST Called Vascular office spoke with Jessy. They have received this referral and have patient scheduledwith Dr Gonzales on 11/23 @ 10:00. Adriana Burnham * Telephone Encounter - Kira Ko [facility] - 11/10/2022 9:38 AM EST Records faxed. * Telephone Encounter - Adriana Pereira [facility] - 11/10/2022 8:46 AM EST Janeth: Information ready for you. Adriana Burnham * Telephone Encounter - Carlos Brooks - 11/09/2022 2:44 PM EST Vascular Consult [facility] Previous patient of Dr. Mendez 3 years or more. Janeth/Dudley: Can you please refer patient and follow up? Thanks! Carlos Brooks documented in this encounterCl[facility]03-01-2023 History of Present illness Narrative* Wallace Stone MD - 11/09/2022 2:00 PM EST Images from the original note were not included. PATIENT NAME: Harman Mcleod CLINIC NO.: [id number] ATTENDING PHYSICIAN: Wallace Stone MD DATE OF SERVICE: November 09, [address] Banks referring provider defined for this encounter. here is an update on a follow up visit on female Harman Mcleod at the clinic 11/09/2022 Diagnosis: T1b, N0, M0- R breast, Tumor 9 mm, Grade 2, Margins negative, Negative LVI, 2 SNL negative, ER and CA >95% positive, Her2 IHC 1+ Treatment History: [...] follow up. R Breast T1b,N0,M0- ER and CA >95% positive and Her-2 IHC 1+ tumor post Lumpectomy and SNL 10/2022. Reviewed path and she may skip radiation and also discussed hormonal; therapy with an AI and she will start Arimidex. Discussed adverse events and she wishes to proceed. Osteoporosis- On Prolia started 08/[address] Perry Vulvar high grade dysplasia- Follows Battery Charger Tester Onc at [place] and next appointment 11/24/2022 CRI R Leg swelling and pain and h/o PVD- refer to vascular HTN Thank you for the kind referral. If there are any questions and or concerns please do not hesitate to contact me at [phone]. Wallace Stone MD Hematology/Medical Oncology [facility] [place] spent a total of 30 minutes on the date of the service which included preparing to see the patient, qmfe-zq-clnt patient care, completing clinical documentation, obtaining and/or reviewing separately obtained history, performing a medically appropriate examination, counseling and educating the pat ient/family/caregiver, and ordering medications, tests, or procedures. CC: MD Mateus Spicer MD documented in this encounterClinton [facility] Hospital02-08-2023 NoteOPERATIVE NOTE OPERATION DATE: 10/19/2022 PREOPERATIVE DIAGNOSIS: Right breast cancer. POSTOPERATIVE DIAGNOSIS: Right breast cancer. PROCEDURE: Needle localized right breast lumpectomy with sentinel lymph node biopsy. SURGEON: Iliana Gagnon M.D. ANESTHESIA: General laryngeal mask airway. WAX SPECIALIST: SADI Hammer ESTIMATED BLOOD LOSS: Less than [...] room in good condition. CC: Mateus Perry M.D.[facility]01-31-2023 NoteEXAMINATION: XR CHEST 2 V HISTORY: [...] Electronically authenticated by: ALFONSO GEORGE Date: 2022-10-11 12:11[facility]01-12-[facility] History of Present illness Narrative* Marcin Nayak MD - 09/22/2022 11:38 PM EST Images from the original note were not included. Radiation Oncology - New Patient/Consult Note PATIENT NAME: Harman Mcleod PATIENT Signed: Marcin Nayak MD I spent a total of 60 minutes on the date of the service which included preparing to see the patient, ogrd-fu-mmuu patient care, and counseling and educating the patient/family/caregiver. This document has been created with the use of voice recognition technology. It may contain inaccuracies, misspellings, inaccurate syntax or inappropriate word context that are a result of the inadequacies/shortcomings of said technology/software. documented in this encounterClinton [facility] Hospital01-12-2023 History of Present illness Narrative* Wallace Stone MD - 09/22/2022 5:10 PM EST Images from the original note were not included. PATIENT NAME: Harman Mcleod CLINIC NO.: [id number] ATTENDING PHYSICIAN: Wallace Stone MD DATE OF [...] provisional grade 1 through 2, ER and CA greater than 95% positive, HER2/holden negative with an IHC score of 1+ and FISH negative at [facility]. This patient was subsequently referred to Dr. Iliana Gagnon for surgical consultation. Patient denies any previous history of abnormal mammograms and or breast biopsy. She has had a recent bone density in [place] and was diagnosed with osteoporosis and started on Prolia as well. Patient has a sister who was diagnosed with breast cancer at the age of 82 and her daughter diagnosed with breast cancer at the age of 37. She quit smoking approximately 4 years ago. 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 She [...] mouth daily at bedtime. Cut in half Lijkr-2-ZPP-EPA-Fish Oil 1,000 mg (120 mg-180 mg) cap [...] ductal carcinoma, provisional grade 1-2, ER and CA greater than 95% positive, HER2/holden negative with [...] number below. Wallace Stone M.D. Hematology/Medical Oncology [facility] [phone] CC: MD Mateus Spicer MD I spent a total of 60 minutes on the date of the service which included preparing to see the patient, ksfh-sk-ygiz patient care, completing clinical documentation, obtaining and/or reviewing separately obtained history, performing a medically appropriate examination, counseling and educating the pat ient/family/caregiver, ordering medications, tests, or procedures, and communicating with other HCPs (not separately reported). documented in this encounterClinton [facility] Hospital01-12-2023 Miscellaneous Notes* Telephone Encounter - Heavenly [...] involved. Heavenly Wilkerson RN documented in this encounterClinton [facility] Hospital12-30-2022 NoteChief Complaint consultation for right breast [...] biopsy that r evealed invasive ductal carcinoma, ER/CA +; Her2 holden negative; patient denies change [...] gms IV prior to OR SCDs Ordered: [facility] External Ambulatory Referral [facility] External Ambulatory Referral 2. Chronic anticoagulation (Z79.01: correction (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) hold Eliquis 2 days prior to surgery, if ok with Cardiology. 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 Garza. documented [facility] [place] Phone: 1(340) 748-915510-18-2022 Hospital Discharge instructions* Discharge Instructions* Brody Ken [...] call your doctor documented in this encounterBON [employer] Phone: 1(227) 456-792504-04-2022 History of Present illness Narrative* Brody Ken [...] Plunkett MD - 12/13/2021 2:12 PM EDT Battery Charger Tester Oncology Attending Note Patient seen and evaluated [...] clearance on chart for or 12/13/21 * Bryon Oshea RN - 12/10/2021 9:18 AM EDT Updated cardiac clearance on chart for or 12/13/21 documented in this encounterNetaplan Phone: 1([phone]) [phone] Evaluation note* Diagnosis Vaginectomy w/ Cysto 12/13/21- Primary Other postprocedural status documented in this encounter [employer] Phone: 1([phone]) 498-219004-04-2022 Hospital Discharge instructions* Instructions* Brody Ken RN [...] of: May 19, 2021 Content Version: 13.2 [employer]. Care instructions adapted under license by [employer]. If you have questions about a medical condition or this instruction, always ask your healthcare professional. [employer] disclaims any warranty or liability for your [...] urinate call your doctor documented in this [facility] [employer] Work Phone: 1(285) 469-734403-28-2022 History of Present illness Narrative* YANA Wallis [...] Disease: Yes, stents x 3, Dr. Keyes ([facility]) Hypertension: yes Active smoker: Quit 2017, [...] - 12/06/2021 3:[address] graza and pcp potassium 3.3,wbc 12.6 documented in this [facility] Phone: 1(792) 596-332603-25-2022 Hospital Discharge instructions* Instructions* Yoanna Diaz PA [...] drive you home after your procedure. Your lumber stacker driver must be 18 years of age [...] questions, call the Pre-Admission Testing Unit at [phone]. Day of Surgery/Procedure As a patient at [facility] you can expect quality medical and nursing care that is centered on your individual needs. Our goal is to make your surgical experience as comfortableas possible . Directions to the Surgery Center [facility] is located at [address] [place] [address]. Please pull into the Emergency parking lot and stop at the [employer] richards. We offer free dust box tender service for all our surgery patients, if you choose not to have dust box tender parking we have additional parking across the street.You will enter the facility following the [facility] sign. Please stop at the concierge receptionist desk where you will be checked in by the staff. If you have any questions please call [phone]. Transportation after your procedure. You will need a friend or family member to drive you home after your procedure. Your lumber stacker driver must be18 years of age or [...] You may shave your face or neck. [place] your teeth but do not swallow water. [...] or the day of surgery, please call [phone], or [phone] documented in this encounterNetaplan Phone: 1(181) 845-936310-05-2021 History of Present illness Narrative* Parvin Rogel RN - 06/15/2021 10:[address] Kamla gan, pt cleared for phase II * Alla Dickerson DO - 06/15/2021 9:42 AM EDT OB Resident Progress Note Patient may be discharged home once she has met criteria in the PACU. Please perfect serve or page LEAD REFINER resident listed below with any questions, concerns, or if patient has not met PACU discharge criteria in 2-3 hours. . Please page first. Alla Dickerson DO LEAD REFINER Resident PGY3 Pager: [phone] [facility] 06/15/2021, 9:42 AM documented in this [employer] Phone: 1([phone]) 741-659910-04-2021 Hospital Discharge instructions* Instructions* Alla Dickerson DO [...] cleared by your physician documented in this [facility] Work Phone: 1(709) 814-599709-01-2021 Hospital Discharge instructions* Instructions* Na Cabezas APRN - [employer] - 05/12/2021 Pre-operative Instructions Please arrive at [...] public transportation ALONE is not acceptable. -Your lumber stacker driver must be 18 years of age [...] Day of Surgery/Procedure As a patient at [facility] you can expect quality medical and nursing care that is centered on your individual needs. Our goal is to make your surgical experience as comfortableas possible . Directions to the Surgery Center [facility] is located at [address] [place] [address]. Please pull into the Emergency/Surgery Center parking lot and stop at the [employer] richards. We offer free dust box tender service for all our surgery patients, if you choose not to have dust box tender parking we have additional parking across the [...] pharmacy bottles in a zip lock bag. [place] your teeth but do not swallow water. [...] DAY OF your surgery, you may call [phone] documented in this [facility] Phone: 1(424) 733-524109-01-2021 History of Present illness Narrative* Mandy Baker RN - 05/12/2021 1:30 PM EDT Medical clearance obtained for OR on 05/18/2021. * Na Cabezas APRN - [employer] - 05/12/2021 1:30 PM EDT Anesthesia Focused [...] (coronary artery disease) CHF (congestive heart failure) ([facility]) COPD (chronic obstructive pulmonary disease) ([facility]) Diabetes mellitus (HCC) Gastritis GERD (gastroesophageal reflux disease) History of stent insertion of renal artery Hx of blood clots Hyperlipidemia Hypertension IBS (irritable bowel syndrome) Pedal edema Pneumonia PVD (peripheral vascular disease) ([facility]) Thyroid disease Under care of team 05/12/2021 dr Hayden velez [place]-last visit apr 2021 Under care of team 05/12/2021 cardiology-[facility]-last visit 12/2020 Varicose vein of leg Patient [...] outside provider), cardiac stentx 3. Last saw die grinder in December 2020. On Eliquis and aspirin prescribed from her die grinder. Medical or cardiac clearance ordered: cardiac FERNY Andres CNP 05/12/21 2:43 PM documented in this encounterNetaplan Phone: evaluation + Plan noteGeneral Surgery [facility] Evaluation + Plan note Future Appointments Appointment Date:11/08/2022 02:00:00 PM Scheduled Provider:Iliana AGGNON MD Location:[facility] Appointment Type:[place] [id number] General Surgery [facility] Evaluation + Plan note Future Appointments Appointment Date:11/22/2022 01:40:00 PM Scheduled Provider:Iliana GAGNON MD Location:[facility] Appointment Type:[place] [id number] General Surgery [facility] Evaluation note* Diagnosis Pre-op chest exam Pre-operative respiratory examination documented in this encounter [employer] Phone: evalzkabca note* Diagnosis S/p Partial vaginectomy with Ultrasonic Scalpel 06/15/21- 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, 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 documented in this encounter [employer] Phone: evalfssavp note* Diagnosis Pre-op chest exam Pre-operative respiratory examination documented in this encounter [employer] 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 documented in this encounter [employer] Phone: Evaluation note* Diagnosis 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, estrogen receptor positive (HCC)- Primary [facility] Diagnosis 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 breast in female, estrogen receptor positive (HCC)- Primary [facility] this encounter [facility]* Diagnosis 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, estrogen receptor positive (HCC)- Primary Claudication in peripheral vascular disease (HCC) Peripheral vascular disease, unspecified documented in this encounter [facility] noteNo assessment information [facility] Work Phone: Evaluation noteNo InformationNort [employer] 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, estrogen receptor positive (HCC)- Primary Rash Rash and other nonspecific skin eruption Other eczema Stage 3a chronic kidney disease (HCC) documented [facility] this encounter [facility]* Diagnosis 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, estrogen receptor positive (HCC)- Primary Stage 3a chronic kidney disease (HCC) documented [facility] this encounter [facility]* Diagnosis Onset Date Resolution Status Altered mental status acuteDiabetes mellitusacuteEdema of both lower legsacuteInflammationacuteLeg ulcer, leftacuteLeg wound, rightacuteOpen wound of left thighacuteUses walker acuteVaricose veins of both legs with edemaacute [facility] Work Phone: Evaluation note* Diagnosis Onset Date Resolution Status Altered mental status acuteDiabetes mellitusacuteEdema of both lower legsacuteInflammationacuteLeg ulcer, leftacuteLeg wound, rightacuteOpen wound of left thighacutePAD (peripheral artery disease)acuteUses walkeracuteVaricose veins of both legs with edemaacute [facility] Work Phone: Evaluation note* Diagnosis Hav (hallux abducto valgus), left- Primary Venous insufficiency Unspecified venous (peripheral) insufficiency Acquired deformity of left toe 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 ([facility]) Diabetes mellitus due to underlying condition with diabetic polyneuropathy, 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 ferry terminal agent insulin use ([facility]) Pain due to onychomycosis of toenails of both feet [facility]* Diagnosis 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)- Primary Diabetes mellitus due to underlying condition with diabetic polyneuropathy, 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 ferry terminal agent insulin use (CMS/HCC) Pain due to onychomycosis of toenails of both feet Venous insufficiency Unspecified venous (peripheral) insufficiency Neoplasm of uncertain behavior of skin documented in this encounter [facility]* Diagnosis 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, estrogen receptor positive (HCC)- Primary documented [facility] this encounter [facility]* Diagnosis 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, estrogen receptor positive (HCC)- Primary Stage 3a chronic kidney disease (HCC) documented in this encounter [facility]* Diagnosis Neoplasm of uncertain behavior of skin- Primary Diabetes mellitus due to underlying condition with diabetic polyneuropathy, 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 ferry terminal agent insulin use (CMS/HCC) Pain due to onychomycosis of toenails of both feet Venous insufficiency Unspecified venous (peripheral) insufficiency 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) documented in this encounter [facility] HealthcareEvaluation note* Diagnosis Neoplasm of uncertain behavior of skin- Primary Diabetes mellitus due to underlying condition with diabetic polyneuropathy, 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 ferry terminal agent insulin use (HCC) Pain due to onychomycosis of toenails of both feet Venous insufficiency Unspecified venous (peripheral) insufficiency Acquired deformity of left toe documented in this encounter [facility] HealthcareEvaluation note* Diagnosis Onset Date Resolution Status Admit Date Osteoarthritis of right hip acuteNovember 2024 10:55am [facility] Work Phone: History general Narrative - Reported* Type Description Date Medical History DIABETES Medical HistoryHTNMedical HistoryASTHMAMedical History3 HEART STENT AND 1 LEG Medical HistoryHYPERLIPIDEMIAMedical HistoryHYPOTHYROIDMedical HistoryPAD Surgical HistorySTENT PLACEMENTSSurgical HistoryPSEUDO ANURYSMSurgical History BLADDER SUSPENSIONSurgical HistoryHYSTERECTOMYSurgical HistoryRLE & RT RENAL DSA'S, ANGIOPLASTIES & [id number] 20:20 Mobile Other History general Narrative - Reported* Type Description Date Medical History DIABETES Medical HistoryHTNMedical HistoryASTHMAMedical History3 HEART STENT AND 1 LEG Medical HistoryHYPERLIPIDEMIAMedical HistoryHYPOTHYROIDMedical HistoryPAD Surgical HistorySTENT PLACEMENTSSurgical HistoryPSEUDO ANURYSMSurgical History BLADDER SUSPENSIONSurgical HistoryHYSTERECTOMYSurgical HistoryRLE & RT RENAL DSA'S, ANGIOPLASTIES & [id number] HistoryVAGINAL ABLASION OF CANCER CELLS 20:20 Mobile Other Hospital course Narrative No data available for this section [facility] Discharge instructions No data available for this section General Surgery [facility] Progress note No data available for this section General Surgery [facility] Reason for referral (narrative) Referred by: Iliana GAGNON MD Referred by: Iliana GAGNON MD General Surgery [facility] Reocgf for referral (narrative)* Diagnostic Procedure Only (Routine) - Pending ReviewSpecialtyDiagnoses / ProceduresReferred By ContactReferred To ContactBR IMAGING Diagnoses 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, estrogen receptor positive (HCC) Procedures MAGNO DIAGNOSTIC BILATERAL DIAGNOSTIC MAMMOGRAPHY COMPUTER-AIDED DETCJ Winnie Farris PA-C [address] [place] [address] [place] [address] [facility] [address] [place] [phone] Referral IDStatusReasonStart DateExpiration DateVisits RequestedVisits [id number] Review Auto-Generated Referral / [facility] HospitalReason for referral (narrative)No reason for referral information availableGrand [facility] Work Phone: Reason for visit Narrative* Auth/CertSpecialty Diagnoses / ProceduresReferred By ContactReferred To Contact Diagnoses Vaginal dysplasia VAGINAL DYSPLASIA Procedures CA OFFICE/OUTPT VISIT,PROCEDURE ONLY CA COMPLETE REMOVAL OF VAGINA WALL CA CYSTOURETHROSCOPY CYSTOSCOPY, VAGINECTOMY Emma Garza MD [address] [facility] [address] [place] [address] [employer] [address] [place] [address] Referral IDStatusReasonStart DateExpiration DateVisits RequestedVisits [id number] [employer] Phone: Summary Purpose Family History No Family [...] lead Latonia Burks PA-C [address] [facility] [address] [place] [address] SpecialtyDiagnoses / ProceduresReferred By ContactReferred To ContactCardiology Diagnoses Pre-op chest exam Procedures EKG 12 lead Kimmie, Latonia, PA-C [address] [facility] [address] [place] [address] Referral IDStatusReasonStart DateExpiration DateVisits RequestedVisits [id number] / Procedures Referred By ContactReferred To ContactVascular Surgery Diagnoses Claudication in peripheral vascular disease (HCC) Procedures CONSULT TO VASCULAR SURGERY OFFICE/OUTPATIENT [facility] 60-74 MINUTES Wallace Stone MD [address] [place] [address] Referral IDStatusReasonStart DateExpiration DateVisits RequestedVisits [id number] PCP Requested Referral /[id number] / ProceduresReferred By ContactReferred To ContactDermatology Diagnoses Rash Other eczema Procedures CONSULT TO DERMATOLOGY OFFICE/OUTPATIENT [facility] 60-74 MINUTES Wallace Stone MD [address] [place] [phone] Referral IDStatusReasonStart DateExpiration DateVisits RequestedVisits [id number] PCP Requested Referral / Chief Complaint and [...] DATE CREATED AUTHOR 02/05/2021 [facility] DATE CREATED AUTHOR AUTHOR'S ORGANIZ ATION 01/22/2023 [facility] DATE CREATED AUTHOR AUTHOR'S ORGANIZ ATION 06/23/2023 [facility] DATE CREATED AUTHOR AUTHOR'S ORGANIZ ATION 07/13/2023 [facility] DATE CREATED AUTHOR AUTHOR'S ORGANIZ ATION 10/10/2024 [facility] DATE CREATED AUTHOR AUTHOR'S ORGANIZ ATION 06/19/2025 [facility] DATE CREATED AUTHOR AUTHOR'S ORGANIZ ATION 07/05/2025 [facility] DATE CREATED AUTHOR AUTHOR'S ORGANIZ ATION 07/19/2025 [facility] DATE CREATED AUTHOR AUTHOR'S ORGANIZ ATION 07/24/2025 [facility] Reason for Visit (unrecogniz ed section and content) StatusReasonSpecialtyDiagnoses / ProceduresReferred By ContactReferred To Contact Diagnoses 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 Procedures CA REMOVE VAGINA WALL, PARTIAL CA COLPOSCOPY,CERVIX W/ADJ VAGINA PARTICAL VAGINECTOMY WITH ULTRASONIC SCAPEL VAGINAL COLPOSCOPY WITH MICROSCOPE Kin Abarca MD [address] [facility] [address] [place] [address] [facility] SpecialtyDiagnoses / ProceduresReferred By ContactReferred To Contact Diagnoses Vaginal dysplasia VAGINAL DYSPLASIA Procedures CA OFFICE/OUTPT VISIT,PROCEDURE ONLY CA DESTRUCT,VAGINAL LESION(S),SIMPLE CO2 LASER VAPORIZATION OF LESIONS ([facility] CONF# [id number] - JEREMIAS) Emma Garza MD [address] [facility] [address] [place] [address] [facility] [address] [place] [address] Referral IDStatusReasonStart DateExpiration DateVisits RequestedVisits [id number] CoordinationSurgery updateReasonComments ConsultBreast CancerReasonCommentsBreast CancerReasonCommentsBreast CancerReason CommentsReferral [...] topically daily. 25 g bacitracin-polymyxin b (POLYSPORIN) 500-38550 UNIT/GM ointment Apply topically 2 times daily. [...] as needed 15 g bacitracin-polymyxin b (POLYSPORIN) 500-25839 UNIT/GM ointment Apply topically 2 times daily. [...] 0929, Intra-op * 0929 (Given - Provider: iKn Abarca MD - Comment: GIVEN TO [...] Bailey RN) * 1425 (Paused - Provider: FENRY Mackenzie CRNA - Comment: Switch to gravity) [...] DateEnd Date Mateus Perry MD [address] [facility] [place] [address] PCP - GeneralFamily Medicine03/04/21Team MemberRelationshipSpecialtyStart DateEnd Date Mateus Perry MD [address] [facility] [place] [address] PCP - GeneralFamily Medicine03/04/21Team MemberRelationshipSpecialtyStart DateEnd Date Mateus Perry MD [address] [facility] [place] [address] PCP - GeneralFamily Medicine03/04/21Team MemberRelationshipSpecialtyStart DateEnd Date Mateus Perry MD [address] [facility] [place] [address] PCP - GeneralFamily Medicine03/04/21Team MemberRelationshipSpecialtyStart DateEnd Date Mateus Perry MD PCP - GeneralFamily Medicine01/05/17Team MemberRelationshipSpecialtyStart DateEnd Date Mateus Perry MD PCP - GeneralFamily Medicine01/05/17Team MemberRelationshipSpecialtyStart DateEnd Date Mateus Perry MD PCP - GeneralFamily Medicine01/05/17Team MemberRelationshipSpecialtyStart DateEnd Date Mateus Perry MD PCP - GeneralFamily Medicine01/05/17Team MemberRelationshipSpecialtyStart DateEnd Date [facility]us [facility]/17Team MemberRelationshipSpecialtyStart DateEnd Date Mateus Perry MD PCP - [facility]01/05/17Team MemberRelationshipSpecialtyStart DateEnd Date Mateus Perry MD [address] [place] [address] PCP - [facility]03/04/21 Team Status: Inactive Member Role Status Nila Perry MD Primary Care Provider Active Gemma Draper ProviderActiveTeam MemberRelationship SpecialtyStart DateEnd Date Mateus Perry MD PCP - [facility]01/05/17Team MemberRelationshipSpecialtyStart DateEnd Date Mateus Perry MD PCP - [facility]01/05/17 Team Status: Inactive Member Role Status Nila Perry MD Primary Care Provider Active Start: May 01, 2024 End: May 01, 2024Mattmonty Gonzales MDAttraghav ProviderActiveStart: May 01, 2024 End: May 01, 2024Team MemberRelationshipSpecialtyStart DateEnd Date Mateus Perry MD [address] [facility] [place] [address] PCP - [facility]02/14/24Team MemberRelationshipSpecialtyStart DateEnd Date Mateus Perry MD [address] [place] [address] PCP - GeneralFamily Medicine02/14/24Team MemberRelationshipSpecialtyStart DateEnd Date Mateus Perry MD [address] [place] [address] PCP - GeneralFamily Medicine02/14/24Team MemberRelationshipSpecialtyStart DateEnd Date Mateus Perry MD [address] [place] [address] PCP - Generalmily Medicine02/14/24Team MemberRelationshipSpecialtyStart DateEnd Date Mateus Perry MD PCP - GeneralFamily Medicine01/05/17Team MemberRelationshipSpecialtyStart DateEnd Date Mateus Perry MD PCP - GeneralFamily Medicine01/05/17Team MemberRelationshipSpecialtyStart DateEnd Date Mateus Perry MD PCP - GeneralFamily Medicine01/05/17Team MemberRelationshipSpecialtyStart DateEnd Date Mateus Perry MD [address] [place] [address] PCP - Generalmily Medicine02/14/24 Team Status: Inactive [...] or prosecute any alcohol or drug abuse patient.[facility] HospitalIn the event this information is protected by the Federal Confidentiality of Alcohol and Drug Abuse Patient Records regulations: The Federal rules restrict any use of the information to criminally investigate or prosecute any alcohol or drug abuse patient.[facility] HospitalIn the event this information is protected by the Federal Confidentiality of Alcohol and Drug Abuse Patient Records regulations: The Federal rules restrict any use of the information to criminally investigate or prosecute any alcohol or drug abuse patient.[facility] HospitalIn the event this information is protected by the Federal Confidentiality of Alcohol and Drug Abuse Patient Records regulations: The Federal rules restrict any use of the information to criminally investigate or prosecute any alcohol or drug abuse patient.[facility] HospitalIn the event this information is protected by the Federal Confidentiality of Alcohol and Drug Abuse Patient Records regulations: The Federal rules restrict any use of the information to criminally investigate or prosecute any alcohol or drug abuse patient.[facility] HospitalIn the event this information is protected by the Federal Confidentiality of Alcohol and Drug Abuse Patient Records regulations: The Federal rules restrict any use of the information to criminally investigate or prosecute any alcohol or drug abuse patient.[facility] HospitalIn the event this information is protected by the Federal Confidentiality of Alcohol and Drug Abuse Patient Records regulations: The Federal rules restrict any use of the information to criminally investigate or prosecute any alcohol or drug abuse patient.[facility] HospitalIn the event this information is protected by the Federal Confidentiality of Alcohol and Drug Abuse Patient Records regulations: The Federal rules restrict any use of the information to criminally investigate or prosecute any alcohol or drug abuse patient.[facility] HospitalIn the event this information is protected by the Federal Confidentiality of Alcohol and Drug Abuse Patient Records regulations: The Federal rules restrict any use of the information to criminally investigate or prosecute any alcohol or drug abuse patient.[facility] HospitalIn the event this information is protected by the Federal Confidentiality of Alcohol and Drug Abuse Patient Records regulations: The Federal rules restrict any use of the information to criminally investigate or prosecute any alcohol or drug abuse patient.[facility] HospitalIn the event this information is protected by the Federal Confidentiality of Alcohol and Drug Abuse Patient Records regulations: The Federal rules restrict any use of the information to criminally investigate or prosecute any alcohol or drug abuse patient.[facility] Goals (unrecognized section and content) Goals [...] BE BASED ON THE PRIMARY CLINICAL RECORDS. [employer] [facility]. provides no warranty or guarantee of the accuracy or completeness of information in this document.
--- NOTE | 2025-08-13 09:49 | PM.CN ---
Consult Note: HPI Data of Consult Patient: known to practice within the last 3 years Consult date: 08/13/25 Requesting Physician: Bethanie Thomas NP Primary Care Provider: Gil Blake MD Consult Narrative Reason for consult: low back pain Narrative: Harman Horta a 84 year old female with chronic back pain secondary to lumbar ddd, lumbar stenosis, lumbar spondylosis presents for evaluation. pt has failed to benefit from > 6 weeks of PT/HEP, heat, ice, tylenol, and cannot take NSAIDs due to GI bleed/CKD. pt utilizing tramadol 50mg qid prn and gabapentin 300mg bid with mild relief without side effects. pt presents today status post bilateral L4-5 TFESI and bilateral SIJ injection with at least 50% improvement, she is having increased right hip and groin pain at this time. noting pain 6/10 increasing to 10/10 with standing, walking, lying, activity, and sleep. finds mild improvement with sitting, reclining, pain patches, and heat. pt denies fall/injury. cc:: CC: Bethanie Thomas NP Review of Systems ROS Musculoskeletal Reports: back pain, extremity pain and joint pain PFSH PFSH Medical History Acute kidney injury superimposed on chronic kidney disease ?N17.9 - Acute kidney failure, unspecified (ICD-10) ?N18.9 - Chronic kidney disease, unspecified (ICD-10) Cellulitis of arm, left ?L03.114 - Cellulitis of left upper limb (ICD-10) Defibrillator discharge ?Z45.02 - Encounter for adjustment and management of automatic implantable cardiac defibrillator (ICD-10) Lower gastrointestinal hemorrhage ?K92.2 - Gastrointestinal hemorrhage, unspecified (ICD-10) Anemia in stage 4 chronic kidney disease ?N18.4 - Chronic kidney disease, stage 4 (severe) (ICD-10) ?D63.1 - Anemia in chronic kidney disease (ICD-10) Abscess, gluteal, right ?L02.31 - Cutaneous abscess of buttock (ICD-10) Morbid obesity ?E66.01 - Morbid (severe) obesity due to excess calories (ICD-10) History of tobacco abuse ?Z87.891 - Personal history of nicotine dependence (ICD-10) Acute renal failure ?N17.9 - Acute kidney failure, unspecified (ICD-10) Elevated diaphragm ?J98.6 - Disorders of diaphragm (ICD-10) Pleural effusion ?J90 - Pleural effusion, not elsewhere classified (ICD-10) COPD with acute exacerbation ?J44.1 - Chronic obstructive pulmonary disease with (acute) exacerbation (ICD-10) Acute hypoxic respiratory failure ?J96.01 - Acute respiratory failure with hypoxia (ICD-10) Acute on chronic diastolic CHF (congestive heart failure) ?I50.33 - Acute on chronic diastolic (congestive) heart failure (ICD-10) Type 2 diabetes mellitus ?E11.9 - Type 2 diabetes mellitus without complications (ICD-10) Hypoxemia ?R09.02 - Hypoxemia (ICD-10) Abscess ?L02.91 - Cutaneous abscess, unspecified (ICD-10) Abscess ?L02.91 - Cutaneous abscess, unspecified (ICD-10) Cellulitis and abscess of left leg ?L03.116 - Cellulitis of left lower limb (ICD-10) ?L02.416 - Cutaneous abscess of left lower limb (ICD-10) Hyperkalemia ?E87.5 - Hyperkalemia (ICD-10) Moderate protein-calorie malnutrition ?E44.0 - Moderate protein-calorie malnutrition (ICD-10) CHF (congestive heart failure) ?I50.9 - Heart failure, unspecified (ICD-10) Hypoxia ?R09.02 - Hypoxemia (ICD-10) Acute infective exacerbation of chronic obstructive airway disease ?J44.1 - Chronic obstructive pulmonary disease with (acute) exacerbation (ICD-10) Weakness ?R53.1 - Weakness (ICD-10) Acute right hip pain ?M25.551 - Pain in right hip (ICD-10) Rheumatoid arthritis flare ?M06.9 - Rheumatoid arthritis, unspecified (ICD-10) Difficulty in walking ?R26.2 - Difficulty in walking, not elsewhere classified (ICD-10) Arthralgia ?M25.50 - Pain in unspecified joint (ICD-10) CAD, multiple vessel ?I25.10 - Atherosclerotic heart disease of [place] coronary artery without angina pectoris (ICD-10) Atrial fibrillation ?I48.91 - Unspecified atrial fibrillation (ICD-10) COPD (chronic obstructive pulmonary disease) ?J44.9 - Chronic obstructive pulmonary disease, unspecified (ICD-10) Gouty arthritis ?M10.9 - Gout, unspecified (ICD-10) Hypothyroidism (acquired) ?E03.9 - Hypothyroidism, unspecified (ICD-10) Iron deficiency anemia ?D50.9 - Iron deficiency anemia, unspecified (ICD-10) Surgical History History of cardiac defibrillator placement ?Z95.810 - Presence of automatic (implantable) cardiac defibrillator (ICD-10) H/O right mastectomy ?Z90.11 - Acquired absence of right breast and nipple (ICD-10) H/O: hysterectomy ?Z90.710 - Acquired absence of both cervix and uterus (ICD-10) History of appendectomy ?Z90.49 - Acquired absence of other specified parts of digestive tract (ICD-10) H/O heart artery stent ?Z95.5 - Presence of coronary angioplasty implant and graft (ICD-10) Family History Father Family history of CHF (congestive heart failure) Family history of cancer Family history of hypertension Sister Family history of cancer Family history of diabetes mellitus Mother Family history of diabetes mellitus Family history of hypertension Social History Within the past year, how often did you have a drink containing alcohol: never Within the past year, how often did you have six or more drinks on one occasion: never Score interpretation: A score less than 3 is consistent with normal alcohol consumption. Smoking status: Former smoker Non-prescribed substance use: denies use Previous occupational history: retired Known occupational exposures/hazards: No Highest level of school completed/degree received: high school graduate Are you now , , , , never or living with a partner: In a typical week, how many times do you talk on the telephone with family, friends, or neighbors: 3 or more times per week How often do you get together with friends or relatives: 3 or more times per week How often do you attend congregational or orthodoxy services: 4 or more times per year Little interest or pleasure in doing things: not at all Feeling down, depressed, or hopeless: not at all Feel stressed/tense/nervous/anxious/difficulty sleeping: not at all Do you think of yourself as: straight/heterosexual Gender Identity: female Meds Home Medications and Allergies Home Medications ?Medication ?Instructions ?Recorded ?Confirmed ?Type albuterol sulfate 2.5 mg/3 mL 2.5 mg inhalation Q4H PRN 03/04/23 08/04/25 History (0.083 %) solution for nebulization shortness of breath or wheezing aspirin 81 mg tablet,delayed 81 mg PO DAILY 03/04/23 08/04/25 History release (Adult Low Dose Aspirin) isosorbide mononitrate 60 mg 60 mg PO DAILY 03/04/23 08/04/25 History tablet,extended release 24 hr levothyroxine 112 mcg tablet 112 mcg PO DAILY 03/04/23 08/04/25 History liothyronine 5 mcg tablet 10 mcg PO DAILY 03/04/23 08/04/25 History febuxostat 40 mg tablet 40 mg PO DAILY 08/20/23 08/04/25 History insulin glargine 100 unit/mL 16 unit subcut QAM 10/14/23 08/04/25 History subcutaneous solution (Lantus U-100 Insulin) simvastatin 40 mg tablet 40 mg PO .QHS 06/26/24 08/04/25 History apixaban 5 mg tablet (Eliquis) 2.5 mg PO BID 03/06/25 08/04/25 History gabapentin 100 mg capsule 100 mg PO BID #60 caps 03/06/25 08/04/25 Rx leflunomide 20 mg tablet 20 mg PO DAILY 03/06/25 08/04/25 History acetaminophen 325 mg tablet 650 mg (2 x 325 mg) PO Q6H PRN 03/23/25 08/04/25 Rx (Tylenol) pain or fever #0 tabs ferrous sulfate 325 mg (65 mg 325 mg PO BID #60 tabs 03/23/25 08/04/25 Rx iron) tablet insulin aspart U-100 100 unit/mL 3 - 15 unit (0.03 - 0.15 mL) 03/23/25 08/04/25 Rx (3 mL) subcutaneous pen (Novolog subcut ACHS #0 mL FlexPen U-100 Insulin aspart) metoprolol succinate 100 mg 100 mg PO DAILY #0 tabs 03/23/25 08/04/25 Rx tablet,extended release 24 hr pantoprazole 40 mg tablet,delayed 40 mg PO DAILY #60 tabs 03/23/25 08/04/25 Rx release (Protonix) Allergies Allergy/AdvReac Type Severity Reaction Status Date / Time oxycodone AdvReac Severe nausea and Verified 08/04/25 09:58 vomiting tramadol AdvReac Severe Vomiting Verified 08/04/25 09:58 cefdinir AdvReac Unknown Vomiting Verified 08/04/25 09:58 ciprofloxacin AdvReac Unknown Vomiting Verified 08/04/25 09:58 Exam Constitutional Documenting provider has reviewed patient's vital signs: yes Common normals: no apparent distress, oriented x3 and alert General appearance: cooperative HENMT Common normals: normocephalic, hearing grossly normal bilaterally and moist oral mucous membranes Head and scalp: normocephalic Eye Common normals: PERRL Pupil: PERRL Neck & C-Spine Common normals: full ROM General: normal visual inspection Chest Common normals: inspection of chest normal Respiratory Common normals: normal respiratory effort, no retractions and no use of accessory muscles Back & Pelvis Lumbar spine/lower back: ROM limited, pain with ROM, lumbar spinal tenderness and straight leg raise negative bilaterally Sacroiliac joints: SI joint(s) abnormal Other: moderate pain over right PSIS Extremity Right lower extremity: hip joint Other: moderate pain with internal/external rotation Neuro Common normals: oriented x3 Sensorium/orientation: alert Psych Common normals: mental status grossly normal, thought process normal, cooperative, affect normal, speech normal and activity/motor behavior normal Speech: normal speech Thought process: normal thought process Results Additional Findings Additional findings: If on a controlled substance or opioids, I have checked an [place] report on this patient and there are no aberrancies noted in the prescribing history.??If on a controlled substance or opioid a drug screen was completed and reviewed within the last year, and if there has not been a drug screen completed we ordered one today to monitor higher risk, state monitored pain medication use. As part of providing excellent, safe, comprehensive care, the following was completed at our patient's visit: 1. A medication reconciliation and review to ensure accurate knowledge of current/active medications, including asking our patients to inform us about any [id number] medications or herbal remedies/nutritional supplements/alternative remedies. 2. A review to specifically ensure our patients have had annual screening for screening for depression, screening for tobacco use, and screening for unhealthy alcohol use. For concerning screenings had a discussion with the patient, provided patient education, and recommended follow-up with primary care provider when appropriate. If patient noted with a risk of falling, they received education on strength, gait, and balance training to prevent future risk of falling. Portions of this note may have been carried over from the previous visit and updated as appropriate. Please note this office utilizes paper charting in addition to the electronic medical record. A list of current medications, vitals, and PMH is available there as the clinical staff outside of myself do not have access to [facility] charting during the clinic day operations. As part of providing quality comprehensive care the current medications, vitals, and PMH were reviewed in the paper chart. Assessment and Plan Assessment and Plan (1) Osteoarthritis of right hip: (2) Lumbar stenosis with neurogenic claudication: (3) Generalized OA: (4) Sacroiliitis: (5) Chronic right hip pain: Plan The patient has had over 3 months of moderate to severe low back and hip pain with functional impairment and inadequate response to conservative care including NSAIDS (unless there are contraindication such as concurrent blood thinners), multiple oral or topical pain medications, and home exercise program/physical therapy.? Patient has completed >6 weeks of guided home exercise program and/or formal physical therapy program without relief of their symptoms.? I have reviewed the imaging of the lumbar spine and hips and no red flags were identified.? The imaging reveals radiographic findings consistent with moderate OA of bilateral hips The Oswestry Disability Index was completed, and the patient scored a 60%.? proceed with right hip injection for right hip pain/oa under fluoroscopy continue medication management through pcp, recently increased gabapentin 300mg bid f/u after injection
== END 2025-08-13 09:31 | disposition home or self-care (01) ==
LOC: PM 09:30
PROVIDERS: PCP Family Medicine; Visit Provider Nurse Practitioner
DX: M16.11 Unilateral primary osteoarthritis, right hip (principal); M48.062 Spinal stenosis, lumbar region with neurogenic claudication; M46.1 Sacroiliitis, not elsewhere classified; M25.551 Pain in right hip
CPT/HCPCS: G0463

== ENCOUNTER 2025-08-18 08:33 | Day surgery (SDC) | payer MEDICARE, OTHER, SELFPAY ==
--- OUTSIDE RECORDS SUMMARY | 2025-08-18 08:39 | XMS_ITS | CCD ---
Author Organization [facility] Care Team Providers Care Skull Splitter Name Role Phone Matues Perry MD Primary Care Provider Mateus Perry Primary Care Physician Mateus Perry MD Primary Care Provider [phone] Mateus Perry MD Primary Care Provider [phone] MD Mateus Perry Primary Care Provider [phone] MD Christiano Gonzales Attending Provider Christiano Gonzales Unavailable [phone] Millie Storm Unavailable SONALI MCKINNEY Admitting [...] DR ROSE Attending Unavailable HOY ., DR IGNAICO Primary Care Unavailable HOY ., DR IGNACIO [...] Unavailable HOY ., DR IGNACIO Consulting Unavailable [place], DR JUDSON Plunkett Consulting Unavailable MISC, DR ROSE Admitting Unavailable MISC, DR ROSE Attending Unavailable HOY ., DR GINACIO Primary Care Unavailable MISC, DR ROSE Consulting [...] HOY ., DR IGNACIO Primary Care Unavailable [place], DR JUDSON Plunkett Consulting Unavailable NILL ., [...] Unavailable HOY ., DR IGNACIO Consulting Unavailable [place], DR JUDSON Plunkett Consulting Unavailable HOY ., [...] Unavailable MATEUS PERRY Primary Care Unavailable HAYDEE, LATONAI Referring Unavailable MD Mateus Perry Primary Care Provider [phone] FERNY Mathews Attending Provider [phone] MD Mateus Perry Primary Care Provider [phone] FERNY Mathews Attending Provider Mateus Perry MD Primary Care Provider Mateus Perry MD Primary Care Provider [phone] VAIBHAV ASHTON Attending Unavailable WALLACE STONE Referring Unavailable HOModesta, MATEUS M Primary Care Unavailable HOModesta, MATEUS M Primary Care Unavailable Mateus Perry MD Primary Care Provider [phone] Christiano Mcdonnell MD Attending Provider Mateus Perry MD Primary Care Provider [phone] Christiano Mcdonnell MD Attending Provider Mateus Perry MD Primary Care Provider Christiano Mcdonnell MD Attending Provider [phone] Christiano Mcdonnell Attending Unavailable Mcdonnell, Christiano Admitting [...] Unavailable Mateus Perry MD Primary Care Provider [phone] Christiano Mcdonnell MD Attending Provider Mor [...] (20 sources)Acetaminophen / oxyCODONE; Translations: [OXYCODONE-ACETAMINOPHEN] Drug Kjzqqvq97-36-6034Mdirb (See Comments), Intolerance, GI UpsetMerMultiCare Health (20 sources)Ciprofloxacin; Translations: [ciprofloxacin]Drug Zjjdbrh97-57-1407 Hives, Urticaria (disorder), Other: See CommentsThe Surgical Hospital At [facility]woods (20 sources)oxyCODONE; Translations: [oxycodone]Drug Sbxlyjm36-28-3824Wkcu, Itching (finding)[facility] (20 sources)cefdinir; Translations: [cefdinir]Drug Oplkcbd25-59-0215Kbwobwfl (disorder), Other: See Comments, Vomiting, Other (See Comments)[facility] (18 sources)traMADol; Translations: [TRAMADOL]Drug Txrpklk38-84-6309Rewiyh Status Change, Other (See Comments)[facility] (1 source)CefuroximeDrug Dnvumfw74-61-5118[facility]I [facility] Work Phone: (10 sources)Acetaminophen; Translations: [acetaminophen]Drug Nhcmjgg96-25-2102 [facility] (2 sources)Acetaminophen / oxyCODONEDrug Sadvljs08-82-4527Egr [facility] (1 source)CefuroximeDrug Dfwszhc89-18-6484[facility]ia[facility] (2 sources)CiprofloxacinDrug AllergyThe [facility]health System Repository (1 source)cefdinirDrug Xeifcyg70-19-6573VsepjflauTwin City Hospital Rep[facility] (1 source)CiprofloxacinDrug Rrjksuv30-02-9202PbwotsjywTwin City Hospital Rep[facility] (1 source)oxyCODONEDrug Jfwjlll49-39-9793Rjteahmbr [facility] Rep[facility] (1 source)traMADolDrug Lfytkky17-83-6768DyorymvqmTwin City Hospital Repository Medications Current Medications MedicationDrug Class(es)DatesSig (Normalized)Sig (Original)acetaminophen 500 mg oral tablet (20 sources)Start: 04-30-2020 End: 92-70-6580kqaz 2 tablets by mouth every six hours as neededacetaminophen (TYLENOL EXTRA STRENGTH) 500 mg tablet Take 2 tablets by mouth every 6 hours as needed for Pain. 60 tablet 04/30/2020 Active End: 53-66-7404xmvh 2 tablets by mouth every four hours as needed for pain acetaminophen (TYLENOL) 325 MG tablet Take 650 mg by mouth every 4 hours as needed for Pain 0 06/28/2022 Discontinued (Stop Taking at Discharge) End: 04-35-3906ppkz 1 tablet by mouth every four hours as neededAcetaminophen (TYLENOL ARTHRITIS PAIN PO) Take 1 tablet by mouth every 4 hours as needed 0 06/28/2022 Discontinued (Stop Taking at Discharge)Comment on above:Take 2 tablets by mouth every 6 hours as needed for Pain.acetaminophen 325 mg / HYDROcodone bitartrate 5 mg oral tablet (1 source)Opioid AgonistStart: 12-13-2021 End: 80-67-1314CKLUUwdalfe-acetaminophen (NORCO) 5-325 MG per tablet Indications: Post-operative state Take 1 tablet by mouth every 4 hours as needed for Pain for up to 7 days. Intended supply: 7 days. Take lowest dose possible to manage pain 10 tablet 0 12/13/2021 12/20/2021 Activealbuterol 0.83 mg/ml inhalation solution (20 sources)beta2-Adrenergic AgonistStart: 82-88-6686vyei 2.5 mg by inhalation four times dailyalbuterol 0.083% Inh Crys 3 mL 2.5 mg, 3 mL, NEB, QID, Refill(s) 0 Start Date: 09/02/22 Status: OrderedStart: 31-15-7366xwax 1.25 mg by inhalation every four to six hours as neededAlbuterol Sulfate 2.5 mg /3 mL (0.083 %) Solution For Nebulization Active 1.25 MG INHALATION EVERY 4-6 HOURS as needed for Shortness Of Breath April 24, 2019 11:00pm Complies with drug therapyStart: 47-01-0048kdtc 1 puff(s) by inhalation every six hours [...] Inhalation Three times a day Active End: 95-16-8133RIGEBTZWJ SULFATE (VENTOLIN INHALATION) Inhale 2 Puffs as [...] oral tablet (20 sources)Dihydropyridine Calcium Channel BlockerStart: 56-99-5320widm 1 tablet by mouth once dailyamLODIPine (NORVASC) 5 MG tablet Take 5 mg by mouth daily 0 04/05/2021 ActiveStart: 11-08-0394rosy 5 mg by mouth once dailyStart: 44-61-4494xzic 5 mg by mouth once dailyAmlodipine Active 5 MG PO Daily April 25, 2019 12:00amComment on above:Take by mouth once daily.anastrozole 1 mg oral tablet (20 sources)Aromatase InhibitorStart: 11-09-2022 End: 46-49-2187fogl 1 tablet by mouth once dailyAnastrozole 1 mg tablet Active 1 MG PO Daily November 28, 2022 11:00pm Complies with drug therapyAnastrozole ActiveComment on above:Take 1 tablet by mouth once daily.apixaban 5 mg oral tablet (20 sources)Factor Xa InhibitorStart: 78-16-2196qpcq 1 tablet by mouth twice dailyApixaban (Eliquis) [...] sources)Platelet Aggregation Inhibitor, Nonsteroidal Anti-inflammatory Drug Start: 98-71-5628uliahyh 81 mg Chew Tab 81 mg = 1 tab(s), Chewed, Daily, Refills(s) 0 Start Date: 09/02/22 Status: OrderedStart: 52-20-0368Ahbeyua (Chang Low Dose Aspirin) 81 mg Tablet,Delayed Release (Dr/Ec) Active 81 MG PO Daily April 24, 2019 11:00pm Complies with drug therapyComment on above:Take 81 mg by mouth once daily.bacitracin 0.5 unt/mg / polymyxin b 10 unt/mg topical ointment (2 sources)Polymyxin-class AntibacterialStart: 06-28-2022 End: 39-33-7732vhguwjbxsw-polymyxin b (POLYSPORIN) 500-56332 UNIT/GM ointment Apply topically 2 times daily. 15 g 1 06/28/2022 06/28/2022 Discontinued (REORDER)cholecalciferol 0.125 mg oral tablet (13 sources)Vitamin DStart: 14-73-9787vedy 1 tablet by mouth once daily Cholecalciferol [...] cartridge (1 source)Histamine-1 Receptor AntagonistStart: 12-13-2021 End: 96-82-6123uzrabtoimaXVWBR (BENADRYL) injection 12.5 mgdocosahexaenoic acid 120 mg / eicosapentaenoic acid 180 mg oral capsule (9 sources)take 1 capsule by mouth twice dailyOmega 3 1000 MG CAPS Take 1,000 mg by mouth 2 times daily 0 Active End: 26-80-0038lqpy 1 capsule by mouth once dailyOmega-3 Fatty Acids (FISH OIL OMEGA-3) 1000 MG CAPS Take 1,000 mg by mouth daily 0 05/12/2021 Discontinued docusate sodium 50 mg / sennosides, care home 8.6 mg oral tablet (2 sources)Start: 06-28-2022 End: 66-97-7250mnbo 8.6-50 mg by mouth once as neededsenna-docusate (PERICOLACE) 8.6-50 MG per tablet Take 1 tablet by mouth 2 times daily as needed for Constipation 60 tablet 1 06/28/2022 06/28/2022 Discontinued (REORDER)febuxostat 40 mg oral tablet (20 sources)Xanthine Oxidase InhibitorStart: 26-62-0356tueu 1 tablet by mouth once dailyFebuxostat 40 mg tablet Active 40 MG PO Daily December 10, 2023 11:00pm Complies with drug therapyComment on above:Take 1 tablet by mouth every afternoon.2 ml fentaNYL 0.05 mg/ml injection (6 sources)Opioid AgonistStart: 45-23-7031ybhynGWS (SUBLIMAZE) injection 50 mcg Start: 21-73-5321lcjdaUNJ (SUBLIMAZE) injection 25 mcgStart: 30-63-9935iylbuZRQ (SUBLIMAZE) injection 50 mcgStart: 47-91-9602dvtgdPTM (SUBLIMAZE) injection 25 mcgferrous sulfate 325 mg oral tablet (19 sources)Start: 80-43-5589msex 1 tablet by mouth twice dailyFerrous Sulfate (Feosol) 325 mg (65 mg iron) tablet Active 325 MG PO Twice daily December 10, 2023 11:00pm Complies with drug therapyFish Oils (10 sources)Start: 09-71-7870doyx 2 capsules by mouth once dailyFish Oil 1000 mg oral capsule 2,000 mg = 2 cap(s), Oral, Daily, Refills(s) 0 Start Date: 09/02/22 Status: Orderedtake 1 capsule by mouth once dailyFish Oil 1000 MG 1 capsule Orally Once a day for 30 day(s) Activefluconazole 100 mg oral tablet (1 source)Azole AntifungalStart: 58-40-1583pxph 1 tablet by mouth once daily fluconazole (DIFLUCAN) 100 MG tablet TAKE 1 TABLET BY MOUTH EVERY DAY 0 12/15/2021 Pjlesx55 actuat fluticasone furoate 0.1 mg/actuat / vilanterol 0.025 mg/actuat dry powder inhaler (11 sources)Corticosteroid, beta2-Adrenergic AgonistStart: 64-21-3781NCEF ELLIPTA 100-25 mcg/dose inhaler Inhale 1 Inhalation as instructed once daily. 08/21/2017 ActiveComment on above:Inhale 1 Inhalation as instructed once daily. furosemide 40 mg oral tablet (20 sources)Loop DiureticStart: 82-63-8636cout 1 tablet by mouth every other day Furosemide 40 mg Tablet Active 40 MG PO Q2D November 28, 2022 11:00pm Complies with drug therapyStart: 76-00-1393aeet 1 tablet by mouth twice dailyLasix 20 [...] 100 mg oral capsule (1 source)Anti-epileptic AgentStart: 86-37-6797Hncgibkjbd 100 mg capsule Active MG PO July 14, 2025 12:00am Complies with drug therapyhydrALAZINE hydrochloride 100 mg oral tablet (20 sources)Arteriolar VasodilatorStart: 20-45-8289lpvo 1 tablet by mouth three times dailyHydralazine 100 mg Tablet Active 100 MG PO Three times daily April 24, 2019 11:00pm Complies with drug therapyComment on above:Take 100 mg by mouth three times daily. hydroCHLOROthiazide 12.5 mg oral tablet (20 sources)Thiazide DiureticStart: 92-24-7698khxl 1 tablet by mouth twice daily hydrochlorothiazide 12.5 mg Tab 12.5 mg = 1 tab(s), Oral, BID, Refills(s) 0 Start Date: 09/02/22 Status: OrderedStart: 03-20-2021 End: 71-21-4530ockcbOSCARZxjgzcxzv (HYDRODIURIL) 12.5 MG tablet Take by mouth every other day On days taking-takesmed twice per day 0 03/20/2021 05/12/2021 Discontinued (Therapy completed)Start: 04-25-2019 End: 76-38-0439yomk 1 tablet by mouth once dailyHydrochlorothiazide 12.5 mg Tablet Discontinued 12.5 MG PO Daily April 24, 2019 11:00pm November 29, 2022 8:20amhydroCHLOROthiazide (HYDRODIURIL) 25 MG tablet Take 12.5 mg by mouth every other day 0 Active End: 49-85-8845ulxz 2 tablets by mouth every other dayhydroCHLOROthiazide (HYDRODIURIL) 12.5 MG tablet hydrochlorothiazide 12.5 mg tablet Take 2 tablets e very other day by oral route for 30 days. 0 05/12/2021 DiscontinuedComment on above:Take 12.5 mg by mouth once daily. 3 ml insulin glargine 100 unt/ml pen injector (8 sources)Insulin AnalogStart: 95-51-5715derjpn 10 [IU] by subcutaneous injection once daily in the eveningInsulin Glargine (Lantus Solostar U-100 Insulin) 100 unit/mL (3 mL) insulin pen Active 10 UNIT SUBCUT Every evening December 10, 2023 11:00pm Complies with drug therapyinsulin lispro 100 unt/ml injectable solution (2 sources)Insulin AnalogStart: 43-08-5798Sjkfojj Lispro (Humalog U-100 Insulin) 100 unit/mL solution Active 1 sliding scale dose SUBCUT As Directed December 10, 2023 11:00pm Complies with drug therapyInsulin Lispro (Humalog U-100 Insulin) 100 unit/mL solution (6 sources)Start: 24-30-7266Lkdlleu Lispro (Humalog U-100 Insulin) 100 unit/mL solution Active 1 sliding scale dose SUBCUT As Directed December 10, 2023 11:00pm Start: 36-75-8247Dabienx Lispro (Humalog U-100 Insulin) 100 unit/mL solution Active 1 sliding scale dose SUBCUT As Directed December 11, 2023 12:00am24 hr isosorbide mononitrate 60 mg extended release oral tablet (20 sources)Nitrate VasodilatorStart: 17-29-8998djvc 1 tablet by mouth once daily in [...] sodium 0.112 mg oral tablet (20 sources)l-ThyroxineStart: 87-12-9115fgmr 1 tablet by mouth once daily levothyroxine 112 mcg (0.112 mg) Tab 112 mcg = 1 tab(s), Oral, Daily, Refills(s) 0 Start Date: 09/02/22 Status: OrderedStart: 54-40-6210zfkh 1 tablet by mouth once dailyLevothyroxine 112 mcg Tablet Active 112 MCG PO Daily April 24, 2019 11:00pm Complies with drug therapyStart: 66-63-1726pebwzpumytyny (SYNTHROID) 112 mcg tablet Take 125 mcg by mouth once daily. 12/08/2016 Active End: 22-45-9912olyu 1 tablet by mouth once dailylevothyroxine (SYNTHROID) 125 MCG tablet Take 125 mcg by mouth Daily 0 05/12/2021 DiscontinuedComment on above:Take 125 mcg by mouth once daily. lidocaine 0.05 mg/mg topical ointment (1 source)Antiarrhythmic, Amide Local AnestheticStart: 06-15-2021 End: 19-48-2362yzlukvqdd (XYLOCAINE) 5 % ointment Apply topically as needed to the affected area. 50 g 1 06/15/2021 06/15/2021 Discontinued (Stop Taking at Discharge)liothyronine sodium 0.005 mg oral tablet (20 sources)l-TriiodothyronineStart: 49-44-4485klxs 1 tablet by mouth once daily Liothyronine 5 mcg tablet Active 5 MCG PO Daily November 28, 2022 11:00pm Complies with drug therapyStart: 56-53-0863pdbl 2 tablets by mouth once daily Cytomel [...] hydrochloride 500 mg oral tablet (20 sources)BiguanideStart: 05-80-6163gkbz 1 tablet by mouth twice daily Metformin 500 mg Tablet Active 500 MG PO Twice daily April 24, 2019 11:00pm Complies with drug therapyComment on above:Take 500 mg by mouth twice daily with meals.24 hr metoprolol succinate 200 mg extended release oral tablet (20 sources)beta-Adrenergic BlockerStart: 11-66-4981ancn 1 tablet by mouth once dailyMetoprolol Succinate 200 mg Tablet Extended Release 24 Hr Active 200 MG PO Daily April 24, 2019 11:00pm Complies with drug therapy End: 43-43-5159xlgo 0.5 tablet by mouth once dailymetoprolol tartrate, [...] 100 unt/mg topical powder (7 sources)Polyene AntifungalStart: 55-70-3509duhzkkso (MYCOSTATIN) 201318 UNIT/GM powder Apply 3 times daily. 60 g 10 06/28/2022 Activenystatin (MYCOSTATIN) 200719 UNIT/GM powder Apply topically 2 times daily as needed 0 XrackkPlfgm-3-LVS-EPA-Fish Oil 1,000 mg (120 mg-180 mg) cap (11 sources)take 1 capsule by mouth twice vcfqjRwzbi-9-WSI-EPA-Fish Oil 1,000 mg (120 mg-180 mg) cap Take 2 g by mouth twice daily. Activetake 1 capsule by mouth twice cleztFqbbz-7-KAZ-EPA-Fish Oil 1,000 mg (120 mg-180 mg) cap Take 2 g by mouth twice daily. 0 ActiveComment on above:Take 2 g by mouth twice daily. Lkpuw-0v-Ixq-Epa-Fish Oil ([place]-3 Fish Oil) 300-1,000 mg Capsule (9 sources)Start: 12-75-6412Viuat-0d-Doi-Qsh-Fish Oil ([place]-3 Fish Oil) 300- 1,000 mg Capsule Active 2 CAP PO Twice daily April 24, 2019 11:00pm Complies with drug therapyStart: 82-05-5398Nfuau: 41-97-5505Yzdak-8y-Heq-Qxs-Fish Oil ([place]-3 Fish Oil) 300-1,000 mg Capsule Active 2 CAP PO Twice daily April 24, 2019 11:00pmStart: 52-37-4610Byobo-8m-Wxf-Ogz-Fish Oil ([place]-3 Fish Oil) 300- 1,000 mg Capsule Active 2 CAP PO Twice daily April 25, 2019 12:00am ondansetron 4 mg disintegrating oral tablet (14 sources)Serotonin-3 Receptor AntagonistStart: 96-55-2579vufa 1 tablet by mouth four times dailyondansetron 4 mg Dis Tab 4 mg = 1 tab(s), Oral, QID, Refills(s) 0 Start Date: 09/02/22 Status: OrderedStart: 06-28-2022 End: 91-78-3332glufoumzosg (ZOFRAN) injection 4 mgStart: 12-13-2021 End: 69-89-8934fxzskpiyyht (ZOFRAN) injection 4 mg End: 32-57-6699cgpi 1 tablet by mouth every eight hours as neededondansetron (ZOFRAN) 4 mg tablet Take 4 mg by mouth every 8 hours as needed for nausea/vomiting. 0 06/20/2023 Discontinued (Discontinued by Patient)Comment on above:Take 4 mg by mouth every 8 hours as needed for nausea/vomiting. pantoprazole 40 mg delayed release oral tablet (14 sources)Proton Pump InhibitorStart: 83-77-4263imll 1 tablet by mouth once dailyPantoprazole [address] Tab 40 mg = 1 tab(s), Oral, Daily, Refills(s) 0 Start Date: 09/02/22 Status: OrderedStart: 09-02-2022 End: 94-32-8629ucvg 1 tablet by mouth once dailyPantoprazole [address] Tab 40 mg = 1 tab(s), Oral, Daily, Refills(s) 0 Start Date: 09/02/22 Status: Ordered End: 19-91-7680ilgd 1 tablet by mouth once dailypantoprazole DR (PROTONIX) 40 mg tablet Take 40 mg by mouth once daily. 0 06/20/2023 Discontinued (Discontinued by Patient)Comment on above:Take 40 mg by mouth once daily.potassium chloride 10 meq extended release oral tablet (13 sources)Start: 37-47-4483Hdiniwuyw Chloride 10 mEq tablet extended release Active MEQ PO July 14, 2025 12:00am Complieswith drug therapyStart: 87-56-4942wswm 1 tablet by mouth three times dailypotassium [...] mg/ml rectal foam (2 sources)Start: 06-28-2022 End: 43-06-5901sofjwebhm HCl (PROCTOFOAM) 1 % foam Apply to hemorrhoids and anal area for postop pain as needed 15g 0 06/28/2022 06/28/2022 Discontinued (REORDER)predniSONE 5 mg oral tablet (5 sources)Start: 25-15-4892aonhibIXRT (DELTASONE) 5 mg tablet TAKE 6 TABLETS ON DAYS 1-3 DIRECTED AND DECREASE BY 1 TAB EVERY 3 DAYS 06/08/2023 ActiveStart: 37-28-1572atbuisAYGR (DELTASONE) 20 MG tabletComment on above:TAKE 6 TABLETS ON DAYS 1-3 DIRECTED AND DECREASE BY 1 TAB EVERY 3 DAYSsilver sulfADIAZINE 10 mg/ml topical cream (2 sources)Sulfonamide AntibacterialStart: 06-28-2022 End: 18-75-9323oxzidi sulfADIAZINE (SILVADENE) 1 % cream Apply topically daily. 25 g 1 06/28/2022 06/28/2022 Discontinued (REORDER)simvastatin 20 mg oral tablet (20 sources)HMG-CoA Reductase InhibitorStart: 09-02-2022 End: 73-89-2572fpoh 1 tablet by mouth once daily at bedtimesimvastatin 20 mg Tab 20 mg = 1 tab(s), Oral, Once a day (at bedtime), Refills(s) 0 Start Date: 08/12 11/30 Status: OrderedStart: 82-29-3622uliu 1 tablet by mouth once daily in [...] chloride flush 0.9 % injection 5-40 mLStart: 10-39-1953itvydq chloride flush 0.9 % injection 5-40 mLStart: .9 % sodium chloride infusion Start: 66-63-7165mdrfge chloride flush 0.9 % injection 5-40 mLspironolactone 50 mg oral tablet (15 sources)Aldosterone AntagonistStart: 89-65-0919ljls 1 tablet by mouth once dailySpironolactone (Aldactone) 50 mg tablet Active 50 MG PO Daily December 10, 2023 11:00pm Complies with drug therapyStart: 27-36-2684hhbf 0.5 tablet by mouth in the morningspironolactone (ALDACTONE) 25 MG tablet TAKE 1/2 TABLET BY MOUTH IN THE MORNING 0 09/22/2022 Activesucralfate 1000 mg oral tablet (20 sources)Aluminum ComplexStart: 66-98-4007itgk 1 tablet by mouth at bedtime Sucralfate 1 gram tablet Active 1 GM PO Before meals and at bedtime November 28, 2022 11:00pm Complies with drug therapyStart: 28-17-6954Ymwsqanf 1 gram Tab 1 gm = 1 tab(s), Oral, QIDACHS, Refills(s) 0 Start Date: 09/02/22 Status: Ordered Sucralfate ActiveComment on above:Take 1 g by mouth four times daily. Sulfamethoxazole / Trimethoprim (2 sources)Dihydrofolate Reductase Inhibitor Antibacterial, Sulfonamide AntimicrobialBactrim ActivetraMADol hydrochloride 50 mg oral tablet (1 source)Opioid AgonistStart: 12-82-2291kpck 1 tablet by mouth once daily Tramadol 50 mg tablet Active 50 MG PO Daily July 14, 2025 12:00am Complies with drug therapytriamcinolone acetonide 1 mg/ml topical cream (6 sources)Corticosteroidtriamcinolone (KENALOG) 0.1 % cream Apply topically 2 times daily as needed 0 ActiveVitamin D3 (2 sources)Vitamin D3 ActiveVitamin D3 2000 intl units oral Tab (4 sources)Start: 21-04-7995yoah 1 tablet by mouth once dailyVitamin D3 2000 intl units oral Tab 50 mcg, Oral, Daily, tab(s), Refills(s) 0 Start Date: 09/02/22 Status: Ordered Completed/Discontinued Medications MedicationDrug Class(es)DatesSig (Normalized)Sig (Original)albuterol 0.833 mg/ml / ipratropium bromide 0.167 mg/ml inhalation solution (1 source)Anticholinergic, beta2-Adrenergic AgonistStart: 06-15-2021 End: 24-49-1105lblsylbgdqu-albuterol (DUONEB) nebulizer solution 1 ampule amoxicillin 875 mg / clavulanate 125 mg oral tablet (8 sources)Penicillin-class AntibacterialStart: 02-13-2024 End: 43-60-0438reil 1 tablet by mouth once dailyAmoxicillin-Pot Clavulanate 875- 125 mg tablet Discontinued TAB PO Daily February 12, 2024 11:00pm July 14, 2025 11:07amcalcium chloride 0.0014 meq/ml / potassium chloride 0.004 meq/ml / sodium chloride 0.103 meq/ml / sodium lactate 0.028 meq/ml injectable solution (3 sources)Start: 06-28-2022 End: 22-66-1336mcevqkqd ringers infusionStart: 98-81-6057hdyuucyu ringers infusionStart: 26-00-2198ygzxtdro ringers infusioncetirizine hydrochloride 10 mg oral capsule (17 sources)Histamine-1 Receptor AntagonistStart: 04-25-2019 End: 31-96-6149nddl 1 tablet by mouth twice dailyCetirizine (Zyrtec) 10 mg Capsule Discontinued 1 TAB PO Twice daily April 24, 2019 11:00pm 2022 8:23amStart: 01-28-2019 End: 22-97-4375dwoo 1 tablet by mouth twice dailycetirizine (ZYRTEC) 10 mg tablet Take 10 mg by mouth twice daily. 11 01/28/2019 06/20/2023 Discontinued (Discontinued by Patient)Comment on above:Take 10 mg by mouth twice daily. citalopram 20 mg oral tablet (20 sources)Serotonin Reuptake InhibitorStart: 01-01-2019 End: 68-64-3935nast 1 tablet by mouth once dailyCitalopram 20 mg Tablet Discontinued 20 MG PO Daily April 24, 2019 11:00pm November 29, 2022 8:23am Start: 66-25-6940zopmygidow (CELEXA) 20 mg tablet 11 01/01/2019 Activedocusate sodium 100 mg oral capsule (8 sources)Start: 04-30-2020 End: 96-59-3627xaeq 2 capsules by mouth every twenty-four hours as needed docusate sodium (COLACE) 100 mg capsule Take 2 capsules by mouth at bedtime as needed (opioid-induced constipation). 60 capsule 0 04/30/2020 06/20/2023 Discontinued (Discontinued by Patient)Comment on above:Take 2 capsules by mouth at bedtime as needed (opioid-induced constipation).empagliflozin 10 mg oral tablet (19 sources)Sodium-Glucose Cotransporter 2 InhibitorStart: 12-11-2023 End: 96-96-4510ehmv 1 tablet by mouth once dailyEmpagliflozin (Jardiance) 10 mg tablet Discontinued 10 MG PO Daily December 10, 2023 11:00pm July 14, 2025 11:08am60 actuat formoterol fumarate 0.005 mg/actuat / mometasone furoate 0.1 mg/actuat metered dose inhaler (8 sources)Corticosteroid, beta2-Adrenergic AgonistStart: 2018 End: 75-03-3365VAPLYZ 100-5 mcg/actuation inhalerglimepiride 4 mg oral tablet (20 sources)SulfonylureaStart: 04-25-2019 End: 55-45-3484wwux 1 tablet by mouth twice dailyGlimepiride 4 [...] oral tablet (10 sources)Quinolone AntimicrobialStart: 09-21-2022 End: 49-94-1098xsklZZOPouaz (LEVAQUIN) 750 mg tabletStart: 17-87-9990clyy 1 tablet by mouth once dailylevoFLOXacin (LEVAQUIN) 500 MG tablet TAKE 1 TABLET BY MOUTH EVERY DAY 0 12/09/2021 Activetake 1 tablet by mouth once daily LEVOFLOXACIN PO Take 1 tablet by mouth daily 0 Activemeloxicam 15 mg oral tablet (17 sources)Nonsteroidal Anti-inflammatory DrugStart: 11-02-2022 End: 72-64-2210hcmd 1 tablet by mouth once dailyMeloxicam 15 mg tablet Discontinued 15 MG PO Daily November 28, 2022 11:00pm December 11, 2023 8:24am Comment on above:Take 15 mg by mouth once daily.nitrofurantoin 5 mg/ml oral suspension (10 sources)Nitrofuran AntibacterialStart: 11-29-2022 End: 75-55-6789amja 50 mg by mouth four times daily [...] valgus (acquired), left foot; Translations: [Hallux valgus (acquired)]08-49-3834CxoochyNgnrnjig foot deformities (4 sources)Acquired deformity of toe of left foot; Translations: [Acquired deformities of toe(s), unspecified,left foot]10-64-9523FalhbxatAqbvd bronchitis (1 source)Acute bronchitis, unspecified; Translations: [ACUTE BRONCHITIS UNSPECIFIED]Onset: 81-92-7390KqnhwohiDyrwvtpq reactions (1 source)Eczema; Translations: [Other specified dermatitis]EpisodicAortic; peripheral; and visceral artery aneurysms (4 sources)Femoral false iikwpuwb64-33-0310KgrerbwEqzerk (1 source)Unspecified asthma, uncomplicated; Translations: [UNSPECIFIED ASTHMA UNCOMPLICATED]Onset: 67-34-2188UkgoudfFcjiyo of breast (20 sources)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 female breast; Translations: [Infiltrating ductcarcinoma of breast]Onset: 41-30-5529Ycvfoyr Cancer of other female genital organs (20 sources)Vaginal intraepithelial neoplasia; 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]ChronicCardiac dysrhythmias (8 sources)Paroxysmal atrial fibrillation; Translations: [Paroxysmal atrial fibrillation]Onset: 984320-35-7571SugmipeKfxzivr kidney disease (13 sources)Chronic kidney disease stage 2; Translations: [Chronic kidney disease, stage 2 (mild)]Onset: 102245-04-7965McuevknDvzqwls obstructive pulmonary disease and bronchiectasis (5 sources)Chronic obstructive lung disease; Translations: [Chronic obstructive pulmonary disease, unspecified]Onset: 150787-32-0366WyysacxNsusqbw ulcer of skin (17 sources)Ulcer of lower extremity; Translations: [Non-pressure chronic ulcer of unspecified part of left lower leg with unspecified severity]12-11-2023 ChronicConditions associated with dizziness or vertigo (4 sources)Brain stem oyzymwv38-34-0275QdsflserJpucskawho disorders (4 sources)Presence of automatic (implantable) cardiac defibrillator; Translations: [Presence of cardiac pacemaker]Onset: 11-81-7983CmllmqzUfqumwibtv heart failure; nonhypertensive (18 sources)Acute combined systolic and diastolic heart failure; Translations: [Chronic diastolic heart failure]Onset: 144123-63-0139PnidsrzTsmsffni atherosclerosis and other heart disease (16 sources)Coronary arteriosclerosis; Translations: [Coronary atherosclerosis] Onset: 331514-18-7661ObhbjysJrinihsn mellitus with complications (14 sources)Type 2 diabetes mellitus with diabetic chronic kidney disease; Translations: [Type 2 diabetes mellitus with diabetic peripheral angiopathy without gangrene]Onset: 00-92-5041JijsqbmFgbuuquj mellitus without complication (20 sources)Diabetes mellitus; Translations: [Type 2 diabetes mellitus]Onset: 481077-19-2947XhjycnuDvbeskj on above:Problem List clean-up per request of Phys. EHR CmteDisorders of lipid metabolism (20 sources)Hypertriglyceridemia; Translations: [Pure hypercholesterolemia] Onset: 393131-08-2262UaynyfuMvywshjpdzbogq and diverticulitis (4 sources)Diverticular elekhbt94-68-3627QohtuiiFebfqmqssc disorders (5 sources)Gastroesophageal reflux disease; Translations: [Gastro-esophageal reflux disease without esophagitis]Onset: 327117-06-7590GjpuydmUdwmiwddw hypertension (20 sources)Hypertensive disorder; Translations: [Essential (primary) hypertension]Onset: 630606-38-2136IamoejcPgcj and other crystal arthropathies (1 source)Gout, unspecified; Translations: [Gout, unspecified]Onset: 10-29-2024 ChronicHypertension with complications and secondary hypertension (2 sources)Hypertensive heart and chronic kidney disease with heart failure and stage 1 through stage 4 chronic kidney disease, or unspecified chronic kidney disease; Translations: [Hypertensive heart disease with heart failure]Onset: 33-10-3308GhbezsuGeefbyt (8 sources)Pain in toe; Translations: [Tinea unguium]18-60-0831SeiryswzEftarfjco of unspecified nature or uncertain behavior (6 sources)Neoplasm of uncertain behavior of skin; Translations: [Neoplasm of uncertain behavior of skin]27-57-5663OiduxoabDcqtudlul or stenosis of precerebral arteries (12 sources)Carotid artery stenosis; Translations: [Occlusion and stenosis of bilateral carotid arteries]ChronicOpen wounds of extremities (11 sources)Open wound of left thigh; Translations: [Unspecified open wound, left thigh, initial encounter]98-13-6242SxbvypeoNdgj wounds of extremities (11 sources)Injury of right leg; Translations: [Unspecified open wound, right lower leg, initial encounter]36-87-1870IvrgxwjmAkfwjggailesyi (2 sources)Osteoarthritis of right hip joint; Translations: [Unilateral primary osteoarthritis, right hip]12-39-1860YojxzqzSfqrbtoknwsp (5 sources)Age-related osteoporosis without current pathological fracture; Translations: [AGE-REL OSTEOPOR W/OCURR PATH FX]Onset: 73-85-4305LcgkmlsHjxkg aftercare (5 sources)Long-term current use of anticoagulant; Translations: [halfway (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]Onset: 67-75-6295WgjynxguAxwkh aftercare (1 source)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 supervisor (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; Translations: [CARBON CLEANER CURRNT USE ANTICOAGULANTS]Onset: 84-18-6170MwhywfdkCjgmb aftercare (1 source)halfway (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 oral hypoglycemic drugs; Translations: [PRISON USE ORAL HYPOGLYCEMIC DX]Onset: 83-28-6029OczvzkauErrzk aftercare (1 source)Other contemporary or modern dancer (current) drug therapy; Translations: [OTH PRISON CURRENT DRUG THERAPY]Onset: 98-84-8200XwjwkoclLtsgy bone disease and musculoskeletal deformities (4 sources)Sffbzipirz06-32-2904EgkbqlbuZthtp connective tissue disease (3 sources)Other specified soft tissue disordersEpisodicOther connective tissue disease (1 source)Pain in right lower legEpisodicOther diseases of veins and lymphatics (8 sources)Vascular insufficiency; Translations: [Venous insufficiency (chronic) (peripheral)]46-24-3298JrdgxpgoUwrpv female genital disorders (3 sources)Dysplasia of vagina; 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, unspecified] EpisodicOther nutritional; endocrine; and metabolic disorders (4 sources)Body mass index 30+ - mkobouf58-86-2531EmvfrreKzgxw skin disorders (1 source)Localized swelling, mass and lump, lower limb, bilateral; Translations: [LOC SWELL MASS LUMP LOW LIMB DAVID]Onset: 45-74-1293EokpfjqoOcldd skin disorders (1 source)Eruption; Translations: [Rash and other nonspecific skin eruption] EpisodicPeripheral and visceral atherosclerosis (20 sources)Atherosclerosis of arteries of the extremities; Translations: [Peripheral vascular disease]Onset: 004951-21-8438YtaywhlIejwnbs on above: Problem List clean-up per request of Phys. EHR CmteResidual codes; unclassified (11 sources)Dependence on other enabling machines and devices; Translations: [Uses walker]36-26-5271KkszkezGdvtxwlx codes; unclassified (4 sources)Dgbll13-54-1353VnzgczouAdpzdgvb codes; unclassified (6 sources)Localized edema; Translations: [Edema]EpisodicResidual codes; unclassified (4 sources)Edema, unspecified; Translations: [EDEMA UNSPECIFIED]Onset: 70-43-0071OtvougrzAaxkamla codes; unclassified (1 source)Family history of malignant neoplasm of breast; Translations: [FAMILY HX MALIG NEOPLASM OF BREAST]Onset: 35-34-3369JwwiorucMqayzfew codes; unclassified (8 sources)Bilateral lower leg edema; Translations: [Localized edema]12-11-2023 EpisodicResidual codes; unclassified (8 sources)Altered mental status; Translations: [Altered mental status, unspecified]20-21-5521EupsgrkoOiuvzeia codes; unclassified (3 sources)Altered mental status, unspecified; Translations: [Altered mental status]29-45-2230YagmeswnYtelvxam codes; unclassified (5 sources)Inflammatory gitrvick72-50-6792LmriivztLkeczlchji arthritis and related disease (1 source)Rheumatoid arthritis, unspecified; Translations: [Rheumatoid arthritis, unspecified]Onset: 55-45-8089CgrwaxvBwnghbicy and history of mental health and substance abuse codes (1 source)Personal history of nicotine dependence; Translations: [PERSONAL HISTORY OF NICOTINE DEPEND]Onset: 45-57-6715ZuqhhvapXmaqlfctkax; intervertebral disc disorders; other back problems (4 sources)Cervical disc ytrxajzb88-33-2491QdishlgObesdxodflk; intervertebral disc disorders; other back problems (4 sources)Chronic low back auoh02-34-1672FjrrsjntMvcycssbi-chdsdtk disorders (11 sources)Moderate smoker (20 or less per day) ; Translations: [Nicotine dependence, cigarettes, uncomplicated]Onset: 675257-45-0423GwvqznvMoyplzo disorders (16 sources)Hypothyroidism; Translations: [Hypothyroidism, unspecified]Onset: 080440-81-7560PzvctjxCmbeoszrpshv (4 sources)CONTACT W/AND (SUSP) EXPOS COVID-19; Translations: [CONTACT W/AND (SUSP) EXPOS COVID-19]Onset: 64-45-0438Tcywgyqilsye (1 source)COUGH, UNSPECIFIED; Translations: [COUGH, UNSPECIFIED]Onset: 58-97-4183Pjfobrejqqwv (2 sources)BX; Translations: [BX]Onset: 41-20-2695Oleipzbcpwmy (6 sources)Inflammatory disorder; Translations: [Inflammation]58-01-9247Pnmheob tract infections (4 sources)Urinary tract infection, site not specified; Translations: [UTI SITE NOT SPECIFIED]Onset: 96-56-0031GwjkhlkjApjsmzjl veins of lower extremity (11 sources)Varicose veins of lower limb co-occurrent with edema; Translations: [Varicose veins of bilateral lower extremities with other complications] 18-50-4990CxlprpmdXsjim infection (4 sources)COVID-19; Translations: [COVID-19]Onset: 03-17-2022 Past or Other Problems Problem ClassificationProblemDateDocumented DateEpisodic/ChronicCancer of other female genital organs (8 sources)High grade squamous intraepithelial lesion on vaginal Papanicolaou smear; Translations: [High gradesquamous intraepithelial lesion on cytologic smear of vagina (HGSIL)]Onset: 803232-25-3632PbniurzzCqioqrz dysrhythmias (2 sources)Palpitations; Translations: [Palpitations]Onset: 80-95-2428Nwpuvfhw Coronary atherosclerosis and other heart disease (1 source)Presence of coronary angioplasty implant and graft; Translations: [PRESENCE COR ANGPLSTY IMPLANT AND GRAFT]Onset: 10-95-1272UdytvjhpUcrpehcquv and other anemia (1 source)Anemia, unspecified; Translations: [ANEMIA UNSPECIFIED]Onset: 85-28-7347FyppdzbxNvfdi and electrolyte disorders (4 sources)Hypokalemia; Translations: [HYPOKALEMIA]Onset: 76-61-7900Bzivkkqm Gastritis and duodenitis (4 sources)Gastritis, unspecified, without bleeding; Translations: [GASTRITIS UNS WITHOUT BLEEDING]Onset: 02-74-0086DfhfcfrwSkwccpjsrzrjjebg hemorrhage (9 sources)Rectal hemorrhage; Translations: [Hemorrhage of anus and rectum] Onset: 650477-30-7629OmozayxqMwxfh valve disorders (1 source)Cardiac murmur, unspecified; Translations: [CARDIAC MURMUR UNSPECIFIED]Onset: 92-84-8137RvdfsrmzWelynvcbqzzwa and screening for infectious disease (1 source)Encounter for immunization; Translations: [ENCOUNTER FOR IMMUNIZATION] Onset: 71-35-9526JpogkigkVfwqdxabvejx breast conditions (4 sources)Unspecified lump in the right breast, upper outer quadrant; Translations: [UNS LUMP IN RT BREAST UPOUTR QUAD]Onset: 30-72-5052WdgnkhczHzdfc aftercare (1 source)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 supervisor (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 aspirin; Translations: [CARBON CLEANER CURRENT USE OF ASPIRIN]Onset: 92-93-6451OhftcuyzUlwei female genital disorders (11 sources)Vaginal lesion; Translations: [Other specified noninflammatory disorders of vagina]Onset: 885146-13-2241ZosbldppRvmyz female genital disorders (11 sources)Vaginal intraepithelial neoplasia grade 2; Translations: [Moderate vaginal dysplasia]Onset: 483986-44-0361LuxxcatfVppmf female genital disorders (1 source)Other specified noninflammatory disorders of vagina; Translations: [Other specified noninflammatorydisorders of vagina]Onset: 98-97-6280Mkxoztej Other female genital disorders (2 sources)Dysplasia of vagina, unspecified; 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, unspecified]Onset: 24-04-4599OgjopdtqZnrem gastrointestinal disorders (4 sources)Diarrhea, unspecified; Translations: [DIARRHEA UNSPECIFIED]Onset: 52-42-5846IfmhfwjyYwezu lower respiratory disease (4 sources)Dyspnea, unspecified; Translations: [DYSPNEA UNSPECIFIED]Onset: 78-02-6146PlaqkhziAcxyu lower respiratory disease (4 sources)Other forms of dyspnea; Translations: [OTHER FORMS OF DYSPNEA]Onset: 80-17-9841KllkfkqrWdkky screening for suspected conditions (not mental disorders or infectious disease) (8 sources)Other abnormal and inconclusive findings on diagnostic imaging of breast; Translations: [Encounter for screening mammogram for malignant neoplasm of breast]Onset: 65-57-7778RdxzntxxIjsso upper respiratory disease (1 source)Nasal congestion; Translations: [NASAL CONGESTION]Onset: 08-13-2022 EpisodicResidual codes; unclassified (7 sources)Postoperative state; Translations: [Other specified postprocedural states]Onset: 12-13-2021 Resolved: 17-32-9561OgyifpjhToiuiprl codes; unclassified (1 source)Acquired absence of both cervix and uterus; Translations: [ACQUIRED ABSENCE BOTH CERVIX AND UTERUS]Onset: 87-05-7833DoawmuofPjbroxbb codes; unclassified (1 source)Family history of malignant neoplasm of other organs or systems; Translations: [FAM HX MALIG NEOPLASM OTH ORGN/SYS]Onset: 24-07-9351JwlubycjDesr and subcutaneous tissue infections (2 sources)Local infection of the skin and subcutaneous tissue, unspecified; Translations: [Local infection ofthe skin and subcutaneous tissue, unspecified] Onset: 54-60-1786EsdslksuMztetgzzfvhv (6 sources)Complications due to vascular device, implant, and graft; Translations: [Complications due to vascular device, implant, and graft] Unclassified (6 sources)E coli infection; Translations: [E coli infection]Unclassified (1 source)CONTACT W/AND (SUSP) EXPOS COVID-19; Translations: [CONTACT W/AND (SUSP) EXPOS COVID-19]Onset: 11-16-2022 Results Test NameValueInterpretationReference RangeFacilityOrders Onlyon 07-10-2025 Orders [id number] Harman Mcleod 1940 F Date Provider Department Center 07/10/2025 MARISOL MORIN [facility] Family History Problem Relation Age of Onset Stroke Mother Coronary artery disease Father Heart attack Father Family Status - Relation Status Age at Mother Father Sister DeceasedNormalUniRegency Hospital CompanyOrders Onlyon 06-12-2025 Orders [id number] Harman Mcleod 1940 F Date Provider Department Center 06/12/2025 BRIAN FLANNERY [facility] Family History Problem Relation Age of Onset Stroke Mother Coronary artery disease Father Heart attack Father Family Status - Relation Status Age at Mother Father Sister DeceasedNormalUniRegency Hospital CompanyAlanine aminotransferase [Enzymatic activity/volume] in Serum or PlasmaOrdered By: Christiano Mcdonnell on 28-61-0241GNV [Catalytic activity/Vol]13 U/L7-52[facility] City HospitalComment on above:Performed By: #### ESR, CBC, CMP #### [facility] [address] [place] [address] USAAlbumin [Mass/volume] in Serum or Plasma by Bromocresol green (BCG) dye binding methoOrdered By: Christiano Mcdonnell on 60-87-7602Tynntxp BCG dye [Mass/Vol]3.5 g/dL3.5-5.7FPremier Health Miami Valley Hospital SouthAlkaline phosphatase [Enzymatic activity/volume] in Serum or PlasmaOrdered By: Christiano Mcdonnell on 49-73-2617GKK [Catalytic activity/Vol]122 U/RDgjz62-032MnnphexsmTwin City HospitalComment on above:Performed By: #### ESR, CBC, CMP #### [facility] [address] [place] [id number] USAAspartate aminotransferase [Enzymatic activity/volume] in Serum or PlasmaOrdered By: Christiano Mcdonnell on 62-00-8071JZF [Catalytic activity/Vol]16 U/Z58-15Wuqmspbch Regional Medical CenterComment on above: Performed By: #### ESR, CBC, CMP #### [place] [address] USABasophils [#/volume] in Blood by Automated countOrdered By: Christiano Martinrow on 12-88-5305Dbnhmtkbw (Bld) [#/Vol]0.1 10*3/uL0.0-0.2 [facility] HospitalComment on above:Performed By: #### ESR, CBC, CMP #### [place] [address] USABasophils/100 leukocytes in Blood by Automated count Ordered By: Christiano Martinrow on 62-85-2972Eyzfqstch/100 WBC (Bld)0.9 %.T[facility] City HospitalComment on above:Performed By: #### ESR, CBC, CMP #### [place] [address] USABilirubin.total [Mass/volume] in Serum or PlasmaOrdered By: Christianoanali Mcdonnell on 97-86-3641Infuczzqe [Mass/Vol]0.3 mg/dL0.3-1.0T[facility] City HospitalComment on above:Performed By: #### ESR, CBC, CMP #### [place] [address] USACalcium [Mass/volume] in Serum or PlasmaOrdered By: Christiano Mcdonnell on 36-77-2671Xeivmty [Mass/Vol]9.4 mg/dL8.6-10.3FPremier Health Miami Valley Hospital SouthComment on above:Performed By: #### ESR, CBC, CMP #### [place] [address] USACarbon dioxide, total [Moles/volume] in Serum or Plasma Ordered By: Christianoanali Mcdonnell on 25-15-2202KW2 [Moles/Vol]33.6 mmol/LHigh21.0-31.0 [facility] HospitalComment on above:Performed By: #### ESR, CBC, CMP #### [place] [address] USAChloride [Moles/volume] in Serum or PlasmaOrdered By: Christiano Mcdonnell on 72-54-3707Tnqqthpz [Moles/Vol]98 mmol/D33-693XcggpamqpTwin City HospitalComment on above:Performed By: #### ESR, CBC, CMP #### [facility] [address] [place] [address] USAComplete Blood Count Auto Diffon 33-03-4890Lphp Corpuscular HGB Conc33.2 g/sRWmwlpy18.0-35.0[facility] Physician GroupComment on above:Performed By: #### ESR, CBC, CMP #### [facility] [address] [place] [address] USANRBC%0.1 /100{WBC}Normal0-0.5[facility] Physician [facility] Comment on above:Performed By: #### ESR, CBC, CMP #### [place] [address] USAWhite Blood Count7.9 [CFU]/mLNormal3.8-11.6[facility] Physician [facility] CenterComment on above:Performed By: #### ESR, CBC, CMP #### [facility] [address] [place] [address] USAComprehensive Metabolic Panelon 33-37-0428Bszmijt [Mass/Vol]3.5 g/dLNormal3.5-5.7[facility] Physician [facility] CenterComment on above: Performed By: #### ESR, CBC, CMP #### [facility] [address] [place] [address] USAGFR/1.73 sq M.predicted MDRD (S/P/Bld) [Vol rate/Area] 38.217 mL/min/{1.73_m2}NormalThe [facility] Physician [facility] CenterComment on above: Performed By: #### ESR, CBC, CMP #### [place] [address] USACreatinine [Mass/volume] in Serum or PlasmaOrdered By: Christiano Mcdonnell on 18-09-5531Ogeyygadsg [Mass/Vol]1.38 mg/dLHigh0.60-1.20 [facility] HospitalComment on above:Performed By: #### ESR, CBC, CMP #### [place] [address] USAEosinophils [#/volume] in Blood by Automated countOrdered By: Christiano Mcdonnell on 88-48-6897Needlpqfcbg (Bld) [#/Vol]0.6 10*3/uLHigh0.0-0.45 [facility] HospitalComment on above:Performed By: #### ESR, CBC, CMP #### [facility] [address] [place] [address] USAEosinophils/100 leukocytes in Blood by Automated count Ordered By: Christiano Mcdonnell on 27-60-5625Jryfccaxwtf/100 WBC (Bld)7.9 %.[facility] City HospitalComment on above:Performed By: #### ESR, CBC, CMP #### [place] [address] USAErythrocyte Sedimentation Rateon 76-43-0771RCV (Bld) [Velocity]61 mm/hHigh0-29[facility] Physician GroupComment on above:Result Comment: PERFORMED BY: [place] [address] PATHOLOGIST LOAD BLOCKER LIO MIRELES M.D.Performed By: #### ESR, CBC, CMP #### [place] [address] USAErythrocyte distribution width [Ratio] by Automated count Ordered By: Christiano Mcdonnell on 06-22-1957Ouxefnbzwll distribution width (RBC) [Ratio]15.4 %High11.9-15.3FPremier Health Miami Valley Hospital SouthComment on above: Performed By: #### ESR, CBC, CMP #### [place] [address] USAErythrocyte sedimentation rate by Photometric method Ordered By: Christiano Mcdonnell on 92-82-9731LQX Photometric method (Bld) [Velocity] 61 mm/hrHigh0-29T[facility] City HospitalErythrocytes [#/volume] in Blood by Automated countOrdered By: Christiano Mcdonnell on 22-61-8523ABX (Bld) [#/Vol]3.73 10*6/uL3.60-5.00T[facility] City HospitalComment on above: Performed By: #### ESR, CBC, CMP #### [facility] [address] [place] [address] USAGlomerular filtration rate [Volume Rate/Area] in Serum, Plasma or Blood by CreatinineOrdered By: Christiano Martinrow on 19-08-9594Cgyqvbpbry filtration rate [Volume Rate/Area] in Serum, Plasma or Blood by Okyqorlibl71.217 mL/MinTwin City HospitalGlucose [Mass/volume] in Serum or Plasma Ordered By: Christiano Martinrow on 43-44-2006Wonjzxa [Mass/Vol]257 mg/mLNgpk60-340 [facility] HospitalComment on above:ADA recommended reference rangeRandom Glucose [...] rangePerformed By: #### ESR, CBC, CMP #### [place] [id number] USAHematocrit [Volume Fraction] of Blood by Automated count Ordered By: Christiano Kecia on 56-22-5567Dolwqjlpwb (Bld) [Volume fraction]35.7 % 34.0-46.4FPremier Health Miami Valley Hospital SouthComment on above:Performed By: #### ESR, CBC, CMP #### [facility] [address] [place] [address] USAHemoglobin [Mass/volume] in BloodOrdered By: Christianoanali Mcdonnell on 88-60-9225Opnwtllxkb (Bld) [Mass/Vol]11.9 g/dL11.8-15.4FPremier Health Miami Valley Hospital SouthComment on above:Performed By: #### ESR, CBC, CMP #### [facility] [address] [place] [id number] USALeukocytes [#/volume] corrected for nucleated erythrocytes in Blood by Automated counOrdered By: Christiano Martinrow on 95-53-3810FCS corrected for nucl RBC Auto (Bld) [#/Vol]7.9 10*3/uL3.8-11.6FPremier Health Miami Valley Hospital SouthLeukocytes [#/volume] in Blood by Automated countOrdered By: Crhistiano Kecia on 48-25-4482HDF (Bld) [#/Vol]7.9 10*3/uL3.8-11.6FPremier Health Miami Valley Hospital SouthComment on above:Performed By: #### ESR, CBC, CMP #### [facility] [address] [place] [id number] USALymphocytes [#/volume] in Blood by Automated countOrdered By: Christiano Mcdonnell on 76-04-2912Gukbdogjffn (Bld) [#/Vol]2.3 10*3/uL1.00-4.8 [facility] HospitalComment on above:Performed By: #### ESR, CBC, CMP #### [facility] [address] [place] [id number] USALymphocytes/100 leukocytes in Blood by Automated count Ordered By: Christiano Mcdonnell on 02-38-5039Gazpwgzlyuu/100 WBC (Bld)29.2 %. [facility] HospitalComment on above:Performed By: #### ESR, CBC, CMP #### [address] [address] [facility] [place] [Entitic mass] by Automated countOrdered By: Christiano Mcdonnell on 34-86-0629OSY (RBC) [Entitic mass]31.8 pg24.7-34.3FPremier Health Miami Valley Hospital SouthComment on above:Performed By: #### ESR, CBC, CMP #### [facility] [address] [place], [place] [address] [facility] [place] Auto (RBC) [Mass/Vol]Ordered By: Christiano Mcdonnell on 51-49-4607GVFC (RBC) [Mass/Vol]33.2 g/dL32.0-35.0T[facility] City HospitalMCV [Entitic volume] by Automated countOrdered By: Christiano Mcdonnell on 36-78-8446LWI (RBC) [Entitic vol]95.9 oY24-387VdumsvholTwin City Hospital Comment on above:Performed By: #### ESR, CBC, CMP #### [place] [address] USAMonocytes [#/volume] in Blood by Automated countOrdered By: Christiano Mcdonnell on 42-24-5279Tdmwcizwl (Bld) [#/Vol]0.6 10*3/uL0.0-0.8 [facility] HospitalComment on above:Performed By: #### ESR, CBC, CMP #### [place] [address] USAMonocytes/100 leukocytes in Blood by Automated count Ordered By: Christiano Mcdonnell on 45-24-8648Bgxkhbgrl/100 WBC (Bld)7.5 %.[facility] HospitalComment on above:Performed By: #### ESR, CBC, CMP #### [place] [address] USANeutrophils [#/volume] in Blood by Automated countOrdered By: Christiano Mcdonnell on 34-90-4771Uucvuhdrcys (Bld) [#/Vol]4.3 10*3/uL1.8-7.7 [facility] HospitalComment on above:Performed By: #### ESR, CBC, CMP #### [place] [address] USANeutrophils/100 leukocytes in Blood by Automated count Ordered By: Christiano Mcdonnell on 61-00-1642Pyofuraxqsm/100 WBC (Bld)54.5 %. [facility] HospitalComment on above:Performed By: #### ESR, CBC, CMP #### [place] [address] USANo Panel InformationOrdered By: Christiano Mcdonnell on 42-71-4346Gsgywjeg Creatinine Clearance (ChemN/[facility] Medical CenterNucleated erythrocytes [Presence] in Blood by Automated countOrdered By: Christiano Mcdonnell on 06-45-7230Bnhgpsbur RBC Auto Ql (Bld)0.1 /100{WBC}0-0.5 [facility] HospitalPlatelet mean volume [Entitic volume] in Blood by Automated countOrdered By: Christiano Martinrow on 13-75-3308Xpstlyvv mean volume (Bld) [Entitic vol]8.3 fL6.3-10.7FPremier Health Miami Valley Hospital SouthComment on above:Performed By: #### ESR, CBC, CMP #### [place] [address] USAPlatelets [#/volume] in Blood by Automated countOrdered By: Christiano Kecia on 50-84-2818Szjgkiaar (Bld) [#/Vol]252 10*3/vY952-272 [facility] HospitalComment on above:Performed By: #### ESR, CBC, CMP #### [place] [address] USAPotassium [Moles/volume] in Serum or PlasmaOrdered By: Christiano Mcdonnell on 50-14-8545Wnqhbimfs [Moles/Vol]4.3 mmol/L3.5-5.1FPremier Health Miami Valley Hospital SouthComment on above:Hemolysis is present at a level that could interfere with the result.Contact lab if redraw is requiredResult Comment: Hemolysis is present at a level that could interfere with the result. Contact lab if redraw is requiredPerformed By: #### ESR, CBC, CMP #### [place] [id number] USAProtein [Mass/volume] in Serum or PlasmaOrdered By: Christiano Mcdonnell on 52-86-3790Hfniczb [Mass/Vol]6.5 g/dL6.4-8.9Twin City HospitalComment on above:Performed By: #### ESR, CBC, CMP #### [place] [address] USASerum globulin measurement by calculation (mass/volume) Ordered By: Christiano Mcdonnell on 77-66-5998Njxuqlqq (S) [Mass/Vol]3.0 g/dLTwin City HospitalComment on above:Performed By: #### ESR, CBC, CMP #### [place] [id number] USASerum or plasma albumin/globulin mass ratioOrdered By: Christiano Mcdonnell on 87-20-7037Wzxsyhb/Globulin [Mass ratio]1.2 {ratio}Twin City HospitalComment on above:Performed By: #### ESR, CBC, CMP #### [place] [address] USASerum or plasma anion gap determinationOrdered By: Christiano Mcdonnell on 72-93-1182Psnvq gap [Moles/Vol]11.7 mmol/L6.0-15.0Twin City HospitalComment on above:Performed By: #### ESR, CBC, CMP #### [place] [address] USASodium [Moles/volume] in Serum or PlasmaOrdered By: Christiano Martinrow on 87-90-6518Pzagvr [Moles/Vol]139 mmol/C728-697HccipdrxyTwin City HospitalComment on above:Performed By: #### ESR, CBC, CMP #### [place] [address] USAUrate [Mass/volume] in Serum or PlasmaOrdered By: Christiano Martinrow on 14-88-5311Yuedt [Mass/Vol]3.1 mg/dL2.3-6.6FPremier Health Miami Valley Hospital SouthComment on above:Result Comment: PERFORMED BY: [place] [address] PATHOLOGIST LOAD BLOCKER LIO MIRELES M.D.Performed By: #### ESR, CBC, CMP #### [place] [address] USAUrea nitrogen [Mass/volume] in Serum or PlasmaOrdered By: Christiano Martinrow on 43-34-2600Luul nitrogen [Mass/Vol]23 mg/dL7-25Twin City HospitalComment on above:Performed By: #### ESR, CBC, CMP #### [place] [address] USAComplete Blood Count Auto Diffon 30-00-8512Mmorkllfs (Bld) [#/Vol]0.0 10*3/uLNormal0.0-0.2The [facility] Physician GroupComment on above: Performed By: #### ESR, CBC, CMP #### [place] [address] USABasophils/100 WBC (Bld)0.4 %Normal.The [facility] Physician GroupComment on above:Performed By: #### ESR, CBC, CMP #### [place] [address] USAEosinophils (Bld) [#/Vol]0.1 10*3/uLNormal0.0-0.45The [facility] Physician GroupComment on above:Performed By: #### ESR, CBC, CMP #### [place] [address] USAEosinophils/100 WBC (Bld)1.3 %Normal.The [facility] Physician GroupComment on above:Performed By: #### ESR, CBC, CMP #### [place] [address] USAErythrocyte distribution width (RBC) [Ratio]14.0 %Normal 11.9-15.3The [facility] Physician GroupComment on above:Performed By: #### ESR, CBC, CMP #### [place] [address] USAHematocrit (Bld) [Volume fraction]33.9 %Low34.0-46.4The [facility] Physician GroupComment on above:Performed By: #### ESR, CBC, CMP #### [place] [address] USAHemoglobin (Bld) [Mass/Vol]11.2 g/dLLow11.8-15.4The [facility] Physician GroupComment on above:Performed By: #### ESR, CBC, CMP #### [place] [address] USALymphocytes (Bld) [#/Vol]2.2 10*3/uLNormal1.00-4.8The [facility] Physician GroupComment on above:Performed By: #### ESR, CBC, CMP #### [place] [address] USALymphocytes/100 WBC (Bld)21.1 %Normal.The [facility] Physician GroupComment on above:Performed By: #### ESR, CBC, CMP #### [address] (RBC) [Entitic mass]30.9 ipRcessf02.7-34.3The [facility] Physician GroupComment on above:Performed By: #### ESR, CBC, CMP #### [place] [address] USAV (RBC) [Entitic vol]93.3 tRDmltjq60-074Kcv [facility] Physician GroupComment on above:Performed By: #### ESR, CBC, CMP #### [place] [address] USAMean Corpuscular HGB Conc33.1 g/iIPgodjs77.0-35.0The [facility] Physician GroupComment on above:Performed By: #### ESR, CBC, CMP #### [place] [address] USAMonocytes (Bld) [#/Vol]1.3 10*3/uLHigh0.0-0.8The [facility] Physician GroupComment on above:Performed By: #### ESR, CBC, CMP #### [place] [address] USAMonocytes/100 WBC (Bld)12.5 %Normal.The [facility] Physician GroupComment on above:Performed By: #### ESR, CBC, CMP #### [place] [address] USANeutrophils (Bld) [#/Vol]6.7 10*3/uLNormal1.8-7.7The [facility] Physician GroupComment on above:Performed By: #### ESR, CBC, CMP #### [place] [address] USANeutrophils/100 WBC (Bld)64.7 %Normal.The [facility] Physician GroupComment on above:Performed By: #### ESR, CBC, CMP #### [facility] [address] [place] [address] USANRBC%0.1 /100{WBC}Normal0-0.5The [facility] Comment on above:Performed By: #### ESR, CBC, CMP #### [place] [address] USAPlatelet mean volume (Bld) [Entitic vol]8.7 fLNormal 6.3-10.7The [facility] Physician GroupComment on above:Performed By: #### ESR, CBC, CMP #### [place] [address] USAPlatelets (Bld) [#/Vol]280 10*3/gCDooblj919-378Eww [facility] Physician GroupComment on above:Performed By: #### ESR, CBC, CMP #### [place] [address] USARBC (Bld) [#/Vol]3.63 10*6/uLNormal3.60-5.00The [facility] Physician GroupComment on above:Performed By: #### ESR, CBC, CMP #### [place] [address] USAWBC (Bld) [#/Vol]10.4 10*3/uLNormal3.8-11.6The [facility] Physician GroupComment on above:Performed By: #### ESR, CBC, CMP #### [place] [address] USAWhite Blood Count10.4 [CFU]/mLNormal3.8-11.6The [facility] Physician GroupComment on above:Performed By: #### ESR, CBC, CMP #### [place] [address] USAComprehensive Metabolic Panelon 70-26-5053Axehofo [Mass/Vol]4.0 g/dLNormal3.5-5.7The [facility] Physician GroupComment on above: Performed By: #### ESR, CBC, CMP #### [place] [address] USAAlbumin/Globulin [Mass ratio]1.5 {ratio}NormalThe [facility] Physician GroupComment on above:Performed By: #### ESR, CBC, CMP #### [place] [address] USAALP [Catalytic activity/Vol]97 U/FQcwkpm69-068Gsf [facility] Physician GroupComment on above:Result Comment: PERFORMED BY: [place] [address] PATHOLOGIST LOAD BLOCKER LIO MIRELES M.D.Performed By: #### ESR, CBC, CMP #### [place] [address] USAALT [Catalytic activity/Vol]8 U/LNormal7-52The [facility] Physician GroupComment on above:Performed By: #### ESR, CBC, CMP #### [place] [address] USAAnion gap [Moles/Vol]20.9 mmol/LHigh6.0-15.0The [facility] Physician GroupComment on above:Performed By: #### ESR, CBC, CMP #### [place] [address] USAAST [Catalytic activity/Vol]13 U/STgfeaq90-35Way [facility] Physician GroupComment on above:Performed By: #### ESR, CBC, CMP #### [place] [address] USABilirubin [Mass/Vol]0.5 mg/dLNormal0.3-1.0The [facility] Physician GroupComment on above:Performed By: #### ESR, CBC, CMP #### [place] [address] USACalcium [Mass/Vol]9.5 mg/dLNormal8.6-10.3The [facility] Physician GroupComment on above:Performed By: #### ESR, CBC, CMP #### [address] [place] [address] USAChloride [Moles/Vol]98 mmol/OMegjhd70-371Rrc [facility] Physician GroupComment on above:Performed By: #### ESR, CBC, CMP #### [facility] [address] [place] [address] USACO2 [Moles/Vol]26.3 mmol/RUtbsxh74.0-31.0The [facility] Physician GroupComment on above:Performed By: #### ESR, CBC, CMP #### [facility] [address] [place] [address] USACreatinine [Mass/Vol]1.56 mg/dLHigh0.60-1.20The [facility] Physician GroupComment on above:Performed By: #### ESR, CBC, CMP #### [facility] [address] [place] [address] USAGFR/1.73 sq M.predicted MDRD (S/P/Bld) [Vol rate/Area] 32.988 mL/min/{1.73_m2}NormalThe [facility] Physician GroupComment on above: Performed By: #### ESR, CBC, CMP #### [facility] [address] [place] [address] USAGlobulin (S) [Mass/Vol]2.7 g/dLNormalThe [facility] Physician GroupComment on above:Performed By: #### ESR, CBC, CMP #### [facility] [address] [place] [address] USAGlucose [Mass/Vol]96 mg/gYObdefe07-079Zwz [facility] Physician GroupComment on above:Result Comment: Random Glucose Reference Range is dependent on time and content of last meal. Glucose of more than 200 mg/dL in a nonstressed, ambulatory subject supports the diagnosis of Diabetes Mellitus. ADA recommended reference rangePerformed By: #### ESR, CBC, CMP #### [facility] [address] [place] [address] USAPotassium [Moles/Vol]3.2 mmol/LLow3.5-5.1The [facility] Physician GroupComment on above:Performed By: #### ESR, CBC, CMP #### [facility] [address] [place] [address] USAProtein [Mass/Vol]6.7 g/dLNormal6.4-8.9The [facility] Physician GroupComment on above:Performed By: #### ESR, CBC, CMP #### [facility] [address] [place] [address] USASodium [Moles/Vol]142 mmol/OKgbjnd494-764Quo [facility] Physician GroupComment on above:Performed By: #### ESR, CBC, CMP #### [facility] [address] [place] [address] USAUrea nitrogen [Mass/Vol]35 mg/dLHigh7-e [facility] Physician GroupComment on above:Performed By: #### ESR, CBC, CMP #### [facility] [address] [place] [address] USAErythrocyte Sedimentation Rateon 93-84-1046KQL (Bld) [Velocity]63 mm/hHigh0-29The [facility] Physician GroupComment on above:Result Comment: PERFORMED BY: [place] [address] PATHOLOGIST LOAD BLOCKER LIO MIRELES M.D.Performed By: #### ESR, CBC, CMP #### [place] [address] USAOffice Visiton 35-08-2725Jwtser-up [id number] Harman Mcleod 1940 F Date Provider Department Center 01/21/2025 BRIAN FLANNERY [facility] Family History Problem Relation Age of Onset Stroke Mother Coronary artery disease Father Heart attack Father Family Status - Relation Status Age at Mother Father Sister Level of Service:[address]38 [place] OFFICE/OUTPATIENT ESTABLISHED LOW MDM 20 [facility] HospitalAl[facility] aminotransferase [Enzymatic activity/volume] in Serum or PlasmaOrdered By: Christiano Mcdonnell on 89-04-7415NCT [Catalytic activity/Vol]Alanine aminotransferase [Enzymatic activity/volume] in Serum or PlasmaTwin City HospitalAlbumin [Mass/volume] in Serum or Plasma by Bromocresol green (BCG) dye binding methoOrdered By: Christiano Mcdonnell on 36-26-1549Dnfuhhn BCG dye [Mass/Vol]Albumin [Mass/volume] in Serum or Plasma by Bromocresol green (BCG) dye binding metho3.5-5.7FPremier Health Miami Valley Hospital SouthAlkaline phosphatase [Enzymatic activity/volume] in Serum or PlasmaOrdered By: Christiano Mcdonnell on 30-79-7335QGA [Catalytic activity/Vol] Alkaline phosphatase [Enzymatic activity/volume] in Serum or Nmgmqa98-656 Twin City HospitalAspartate aminotransferase [Enzymatic activity/volume] in Serum or PlasmaOrdered By: Christiano Mcdonnell on 94-38-1491QGL [Catalytic activity/Vol]Aspartate aminotransferase [Enzymatic activity/volume] in Serum or Blftrb84-77YrsdcwvenTwin City HospitalBasophils Auto (Bld) [#/Vol]Ordered By: Christiano Mcdonnell on 82-17-8599Hxjntsnwq (Bld) [#/Vol]Automated basophil count0.0-0.2FPremier Health Miami Valley Hospital SouthBasophils/100 WBC Auto (Bld)Ordered By: Christiano Mcdonnell on 96-60-6096Ceolosjws/100 WBC (Bld)Automated basophil %.Twin City HospitalBilirubin.total [Mass/volume] in Serum or PlasmaOrdered By: Christiano Mcdonnell on 72-57-1111Tyjekkvpg [Mass/Vol] Bilirubin.total [Mass/volume] in Serum or Plasma0.3-1.0Twin City HospitalCalcium [Mass/volume] in Serum or PlasmaOrdered By: Christiano Mcdonnell 39-83-9210Xlcelcp [Mass/Vol]Calcium [Mass/volume] in Serum or PlasmaHigh 8.6-10.3FPremier Health Miami Valley Hospital SouthCarbon dioxide, total [Moles/volume] in Serum or PlasmaOrdered By: Christiano Mcdonnell 16-50-4440RL7 [Moles/Vol]Carbon dioxide, total [Moles/volume] in Serum or DcirifYchb45.0-31.0Twin City HospitalChloride [Moles/volume] in Serum or PlasmaOrdered By: Christiano Mcdonnell 58-44-4068Fkzstssn [Moles/Vol]Chloride [Moles/volume] in Serum or Lrqhku26-064IhavsnwiwTwin City HospitalComplete Blood Count Auto Diffon 97-68-9584Golfvaith (Bld) [#/Vol]0.0 10*3/uLNormal0.0-0.2The [facility] Physician GroupComment on above:Performed By: #### ESR, CBC, CMP #### [facility] [address] [place] [address] USABasophils/100 WBC (Bld)0.4 %Normal.The [facility] Physician GroupComment on above:Performed By: #### ESR, CBC, CMP #### [place] [address] USAEosinophils (Bld) [#/Vol]0.1 10*3/uLNormal0.0-0.45The [facility] Physician GroupComment on above:Performed By: #### ESR, CBC, CMP #### [place] [address] USAEosinophils/100 WBC (Bld)1.1 %Normal.The [facility] Physician GroupComment on above:Performed By: #### ESR, CBC, CMP #### [place] [address] USAErythrocyte distribution width (RBC) [Ratio]14.9 %Normal 11.9-15.3The [facility] Physician GroupComment on above:Performed By: #### ESR, CBC, CMP #### [place] [address] USAHematocrit (Bld) [Volume fraction]37.5 %Gekaah15.0-46.4The [facility] Physician GroupComment on above:Performed By: #### ESR, CBC, CMP #### [place] [address] USAHemoglobin (Bld) [Mass/Vol]12.3 g/lXWudqgr37.8-15.4The [facility] Physician GroupComment on above:Performed By: #### ESR, CBC, CMP #### [place] [address] USALymphocytes (Bld) [#/Vol]1.5 10*3/uLNormal1.00-4.8The [facility] Physician GroupComment on above:Performed By: #### ESR, CBC, CMP #### [place] [address] USALymphocytes/100 WBC (Bld)13.7 %Normal.The [facility] Physician GroupComment on above:Performed By: #### ESR, CBC, CMP #### [address] (RBC) [Entitic mass]30.7 qxLfljec32.7-34.3The [facility] Physician GroupComment on above:Performed By: #### ESR, CBC, CMP #### [place] [address] USAV (RBC) [Entitic vol]93.2 zSOhorks04-779Skp [facility] Physician GroupComment on above:Performed By: #### ESR, CBC, CMP #### [place] [address] USAMean Corpuscular HGB Conc32.9 g/dLGjmryl72.0-35.0The [facility] Physician GroupComment on above:Performed By: #### ESR, CBC, CMP #### [place] [address] USAMonocytes (Bld) [#/Vol]0.7 10*3/uLNormal0.0-0.8The [facility] Physician GroupComment on above:Performed By: #### ESR, CBC, CMP #### [place] [address] USAMonocytes/100 WBC (Bld)6.1 %Normal.The [facility] Physician GroupComment on above:Performed By: #### ESR, CBC, CMP #### [place] [address] USANeutrophils (Bld) [#/Vol]8.5 10*3/uLHigh1.8-7.7The [facility] Physician GroupComment on above:Performed By: #### ESR, CBC, CMP #### [facility] [address] [place] [address] USANeutrophils/100 WBC (Bld)78.7 %Normal.The [facility] Physician GroupComment on above:Performed By: #### ESR, CBC, CMP #### [place] [address] USANRBC%0.1 /100{WBC}Normal0-0.5The [facility] Comment on above:Performed By: #### ESR, CBC, CMP #### [place] [address] USAPlatelet mean volume (Bld) [Entitic vol]8.2 fLNormal 6.3-10.7The [facility] Physician GroupComment on above:Performed By: #### ESR, CBC, CMP #### [place] [address] USAPlatelets (Bld) [#/Vol]238 10*3/aIHjeqfo446-845Uhx [facility] Physician GroupComment on above:Performed By: #### ESR, CBC, CMP #### [place] [address] USARBC (Bld) [#/Vol]4.02 10*6/uLNormal3.60-5.00The [facility] Physician GroupComment on above:Performed By: #### ESR, CBC, CMP #### [place] [address] USAWBC (Bld) [#/Vol]10.9 10*3/uLNormal3.8-11.6The [facility] Physician GroupComment on above:Performed By: #### ESR, CBC, CMP #### [place] [address] USAComprehensive Metabolic Panelon 61-08-2980Uwkbkfm [Mass/Vol]4.4 g/dLNormal3.5-5.7The [facility] Physician GroupComment on above: Performed By: #### ESR, CBC, CMP #### [place] [id number] USAAlbumin/Globulin [Mass ratio]1.7 {ratio}NormalThe [facility] Physician GroupComment on above:Performed By: #### ESR, CBC, CMP #### [place] [address] USAALP [Catalytic activity/Vol]92 U/GKxypju76-014Aiv [facility] Physician GroupComment on above:Result Comment: PERFORMED BY: [place] [address] PATHOLOGIST LOAD BLOCKER BERNARDA GARCIA M.D.Performed By: #### ESR, CBC, CMP #### [place] [address] USAALT [Catalytic activity/Vol]17 U/LNormal7-52The [facility] Physician GroupComment on above:Performed By: #### ESR, CBC, CMP #### [place] [address] USAAnion gap [Moles/Vol]13.1 mmol/LNormal6.0-15.0The [facility] Physician GroupComment on above:Performed By: #### ESR, CBC, CMP #### [place] [address] USAAST [Catalytic activity/Vol]17 U/DRtqgil19-69Mbl [facility] Physician GroupComment on above:Performed By: #### ESR, CBC, CMP #### [place] [address] USABilirubin [Mass/Vol]0.5 mg/dLNormal0.3-1.0The [facility] Physician GroupComment on above:Performed By: #### ESR, CBC, CMP #### [place] [address] USACalcium [Mass/Vol]10.4 mg/dLHigh8.6-10.3The [facility] Physician GroupComment on above:Performed By: #### ESR, CBC, CMP #### [place] [address] USAChloride [Moles/Vol]98 mmol/HXjsasx27-645Qpq [facility] Physician GroupComment on above:Performed By: #### ESR, CBC, CMP #### [facility] [address] [place] [address] USACO2 [Moles/Vol]34.6 mmol/LHigh21.0-31.0The [facility] Physician GroupComment on above:Performed By: #### ESR, CBC, CMP #### [facility] [address] [place] [address] USACreatinine [Mass/Vol]1.46 mg/dLHigh0.60-1.20The [facility] Physician GroupComment on above:Performed By: #### ESR, CBC, CMP #### [facility] [address] [place] [address] USAEstimated GFR35.718 mL/MinNormalThe [facility] Physician [facility] CenterComment on above:Performed By: #### ESR, CBC, CMP #### [facility] [address] [place] [address] USAGlobulin (S) [Mass/Vol]2.6 g/dLNormalThe [facility] Physician GroupComment on above:Performed By: #### ESR, CBC, CMP #### [facility] [address] [place] [address] USAGlucose [Mass/Vol]142 mg/tOMizd34-446Czc [facility] Physician GroupComment on above:Result Comment: Random Glucose Reference Range is dependent on time and content of last meal. Glucose of more than 200 mg/dL in a nonstressed, ambulatory subject supports the diagnosis of Diabetes Mellitus. ADA recommended reference rangePerformed By: #### ESR, CBC, CMP #### [facility] [address] [place] [address] USAPotassium [Moles/Vol]3.7 mmol/LNormal3.5-5.1The [facility] Physician GroupComment on above:Performed By: #### ESR, CBC, CMP #### [facility] [address] [place] [address] USAProtein [Mass/Vol]7.0 g/dLNormal6.4-8.9The [facility] Physician GroupComment on above:Performed By: #### ESR, CBC, CMP #### [facility] [address] [place] [address] USASodium [Moles/Vol]142 mmol/VOtqqfo585-389Ozr [facility] Physician GroupComment on above:Performed By: #### ESR, CBC, CMP #### [facility] [address] [place] [address] USAUrea nitrogen [Mass/Vol]43 mg/dLHigh7-25The [facility] Physician GroupComment on above:Performed By: #### ESR, CBC, CMP #### [facility] [address] [place] [address] USACreatinine [Mass/volume] in Serum or PlasmaOrdered By: Christiano Mcdonnell on 66-41-9014Fzykrktjuh [Mass/Vol]Creatinine [Mass/volume] in Serum or PlasmaHigh0.60-1.20T[facility] City HospitalEosinophils Auto (Bld) [#/Vol]Ordered By: Christiano Mcdonnell on 28-10-3731Zlkldvkymgj (Bld) [#/Vol] Automated eosinophil count0.0-0.45[facility] Eosinophils/100 WBC Auto (Bld)Ordered By: Christiano Mcdonnell on 01-07-2025 Eosinophils/100 WBC (Bld)Automated eosinophil %.T[facility] City HospitalErythrocyte Sedimentation Rateon 37-40-6470PVV (Bld) [Velocity]37 mm/hHigh 0-29The [facility] Physician GroupComment on above:Result Comment: PERFORMED BY: [place] [address] PATHOLOGIST LOAD BLOCKER BERNARDA GARCIA M.D.Performed By: #### ESR, CBC, CMP #### [facility] [address] [place] [address] USAErythrocyte distribution width Auto (RBC) [Ratio]Ordered By: Christiano Mcdonnell on 74-81-7464Uyiuogfgkqj distribution width (RBC) [Ratio] Erythrocyte distribution width [Ratio] by Automated count11.9-15.3FPremier Health Miami Valley Hospital SouthErythrocyte sedimentation rate by Photometric method Ordered By: Christiano Mcdonnell on 34-72-5589YGG Photometric method (Bld) [Velocity] Erythrocyte sedimentation rate by Photometric methodHigh0-29T[facility] City HospitalGlobulin Calc (S) [Mass/Vol]Ordered By: Christiano Mcdonnell on 62-75-0834Qlryyqem (S) [Mass/Vol]Serum globulin measurement by calculation (mass/volume)T[facility] City HospitalGlucose [Mass/volume] in Serum or PlasmaOrdered By: Christiano Mcdonnell on 41-30-4482Srsdwzr [Mass/Vol]Glucose [Mass/volume] in Serum or NdalvhNwev01-370UuoplkdlcTwin City Hospital Comment on above:ADA recommended reference rangeRandom Glucose Reference Range is dependent on time and content of last meal. Glucose of more than 200 mg/dL in a nonstressed, ambulatory subject supports the diagnosisof Diabetes Mellitus. Hematocrit Auto (Bld) [Volume fraction]Ordered By: Christiano Mcdonnell on 01-07-2025 Hematocrit (Bld) [Volume fraction]Hematocrit [Volume Fraction] of Blood by Automated count34.0-46.4FPremier Health Miami Valley Hospital SouthHemoglobin [Mass/volume] in BloodOrdered By: Christiano Mcdonnell on 31-62-6865Aohysjijbi (Bld) [Mass/Vol]Hemoglobin [Mass/volume] in Blood11.8-15.4FPremier Health Miami Valley Hospital SouthLeukocytes [#/volume] corrected for nucleated erythrocytes in Blood by Automated counOrdered By: Christiano Mcdonnell on 19-56-6833SGU corrected for nucl RBC Auto (Bld) [#/Vol]Leukocytes [#/volume] corrected for nucleated erythrocytes in Blood by Automated coun3.8-11.6FPremier Health Miami Valley Hospital SouthLymphocytes Auto (Bld) [#/Vol]Ordered By: Christiano Mcdonnell on 70-94-3369Ybtxcfjnohw (Bld) [#/Vol]Lymphocytes [#/volume] in Blood by Automated count1.00-4.8Twin City HospitalLymphocytes/100 WBC Auto (Bld)Ordered By: Christiano Mcdonnell on 64-53-5599Kuomxobqjsu/100 WBC (Bld)Lymphocytes/100 leukocytes in Blood by Automated count.Twin City HospitalMCH Auto (RBC) [Entitic mass] Ordered By: Christaino Mcdonnell on 82-53-9253KYR (RBC) [Entitic mass]MCH [Entitic mass] by Automated count24.7-34.3FPremier Health Miami Valley Hospital [facility] Auto (RBC) [Mass/Vol]Ordered By: Christiano Mcdonnell on 99-94-5958CZCL (RBC) [Mass/Vol] MCHC [Mass/volume] by Automated count32.0-35.0[facility] MCV Auto (RBC) [Entitic vol]Ordered By: Christiano Mcdonnell on 00-17-1690KCU (RBC) [Entitic vol]MCV [Entitic volume] by Automated -620OlhtocwihTwin City HospitalMonocytes Auto (Bld) [#/Vol]Ordered By: Christiano Mcdonnell on 82-23-5086Pcdzqymgs (Bld) [#/Vol]Automated blood monocyte count0.0-0.8[facility] HospitalMonocytes/100 WBC Auto (Bld)Ordered By: Christiano Mcdonnell on 66-09-0347Vaevpwzid/100 WBC (Bld)Automated monocyte %.[facility] HospitalNeutrophils Auto (Bld) [#/Vol]Ordered By: Christiano Mcdonnell on 19-96-5221Tegsnozwtdk (Bld) [#/Vol]Neutrophils [#/volume] in Blood by Automated countHigh1.8-7.7FPremier Health Miami Valley Hospital SouthNeutrophils/100 WBC Auto (Bld) Ordered By: Christiano Mcdonnell on 02-09-4954Tgeleuyqzma/100 WBC (Bld)Automated neutrophil %.[facility] HospitalNo Panel InformationOrdered By: Christiano Mcdonnell on 14-98-1195Qxqsdesda GFR (CKD-EPI)35.718 mL/MinTwin City HospitalPharmacy Creatinine Clearance (ChemN/AFPremier Health Miami Valley Hospital SouthNucleated erythrocytes [Presence] in Blood by Automated count Ordered By: Christiano Mcdonnell on 32-11-0264Wdxdcnaos RBC Auto Ql (Bld)Nucleated erythrocytes [Presence] in Blood by Automated count0-0.5FPremier Health Miami Valley Hospital SouthPlatelet mean volume Auto (Bld) [Entitic vol]Ordered By: Christiano Mcdonnell on 25-84-0935Xvdcgeia mean volume (Bld) [Entitic vol]Platelet mean volume [Entitic volume] in Blood by Automated count6.3-10.7FPremier Health Miami Valley Hospital SouthPlatelets Auto (Bld) [#/Vol]Ordered By: Christiano Mcdonnell on 01-07-2025 Platelets (Bld) [#/Vol]Platelets [#/volume] in Blood by Automated -947 [facility] HospitalPotassium [Moles/volume] in Serum or Plasma Ordered By: Christiano Mcdonnell on 74-28-9577Zoxjbaqpq [Moles/Vol]Potassium [Moles/volume] in Serum or Plasma3.5-5.1FPremier Health Miami Valley Hospital SouthProtein [Mass/volume] in Serum or PlasmaOrdered By: Christiano Mcdonnell on 52-02-5349Umqlcdf [Mass/Vol]Protein [Mass/volume] in Serum or Plasma6.4-8.9[facility] HospitalRBC Auto (Bld) [#/Vol]Ordered By: Christiano Mcdonnell on 86-91-1051HRB (Bld) [#/Vol]Erythrocytes [#/volume] in Blood by Automated count3.60-5.00 [facility] Hospitalerum or plasma albumin/globulin mass ratio Ordered By: Christiano Mcdonnell on 41-69-3397Sodhbor/Globulin [Mass ratio]Serum or plasma albumin/globulin mass ratioGreene Memorial Hospitalerum or plasma anion gap determinationOrdered By: Christiano Mcdonnell on 41-76-2449Remlp gap [Moles/Vol]Serum or plasma anion gap determination6.0-15.0[facility] Hospitalodium [Moles/volume] in Serum or PlasmaOrdered By: Christiano Mcdonnell on 00-44-3877Ssscof [Moles/Vol]Sodium [Moles/volume] in Serum or Lkuncg353-093 [facility] HospitalUrea nitrogen [Mass/volume] in Serum or Plasma Ordered By: Christiano Mcdonnell on 57-78-1215Mopn nitrogen [Mass/Vol]Urea nitrogen [Mass/volume] in Serum or PlasmaHigh7-25[facility] HospitalWBC Auto (Bld) [#/Vol]Ordered By: Christiano Mcdonnell on 07-96-0797OPL (Bld) [#/Vol] Leukocytes [#/volume] in Blood by Automated count3.8-11.6FPremier Health Miami Valley Hospital SouthX-ray reportOrdered By: Butch Quinones on 48-01-2357Dpexr report [facility] [address] [place] [address] [place] [address] XRay Report Signed Patient: Harman Mcleod MR#: [id number] : 1940 Acct:[id number] Age/Sex: 84 / F ADM Date: 5 Loc: ICXD Room: Type: REG CLI Attending Dr: Christiano Mcdonnell MD Copies to: Christiano Mcdonnell MD~ Ordering Provider: Christiano Mcdonnell MD Date of Service: 01/07/25 XR/XR knee BI 2V: KNEE PAIN ([id number]) XR/XR hip BI w PEL1V: HIP PAIN ([id number]) XR/XR lumbar spine 2-3V*: LOW BACK PAIN LUMBAR SPINE - 2 views, bilateral hip series 2 views each, bilateral knee wuxgze5dnotk each CLINICAL HISTORY: Severe bilateral knee hip [...] Jr., D.O. 01/07/2025 4:46 PM Dictation Location: [place] [address] Transcribed By: [facility] 01/07/25 164 Dictated By: Butch Quinones Jr, DO 01/07/25 1644 Signed By: 01/07/25 164 [facility] HospitalXR knee BI 2Von 87-07-5165SN knee BI 2V [facility] [address] [place] [address] [place] [address] XRay Report Signed Patient: Harman Mcleod MR#: [id number] : 1940 Acct:[id number] Age/Sex: 84 / F ADM Date: 01/07/25 Loc: ICXD Room: Type: [facility] CLI Attending Dr: Christiano Mcdonnell MD Copies to: Christiano Mcdonnell MD Ordering Provider: Christiano Mcdonnell MD Date of Service: 01/07/25 XR/XR knee BI 2V: KNEE PAIN ([id number]) XR/XR hip BI w PEL1V: HIP PAIN ([id number]) XR/XR lumbar spine 2-3V*: LOW BACK PAIN [...] Jr., D.OMedardo 01/07/2025 4:46 PM Dictation Location: [place] [address] Transcribed By: [facility] 01/07/251645 Dictated By: Butch Quinones Jr, DO 01/07/25 164 Signed By: 01/07/25 1646[facility] Physician GroupAlanine aminotransferase [Enzymatic activity/volume] in Serum or PlasmaOrdered By: Christiano Mcdonnell on 82-72-9934MRH [Catalytic activity/Vol]Alanine aminotransferase [Enzymatic activity/volume] in Serum or Plasma7-52[facility] HospitalAlbumin [Mass/volume] in Serum or Plasma by Bromocresol green (BCG) dye binding metho Ordered By: Christiano Mcdonnell on 85-94-1622Vrogzuz BCG dye [Mass/Vol]Albumin [Mass/volume] in Serum or Plasma by Bromocresol green (BCG) dye binding metho 3.5-5.7FPremier Health Miami Valley Hospital SouthAlkaline phosphatase [Enzymatic activity/volume] in Serum or PlasmaOrdered By: Christiano Mcdonnell on 00-01-9785DHB [Catalytic activity/Vol]Alkaline phosphatase [Enzymatic activity/volume] in Serum or Vuupsl50-818TtenzqcaxTwin City HospitalAspartate aminotransferase [Enzymatic activity/volume] in Serum or PlasmaOrdered By: Christiano Mcdonnell on 70-25-2968IJB [Catalytic activity/Vol]Aspartate aminotransferase [Enzymatic activity/volume] in Serum or Hiucbn29-23CufjoqioxTwin City Hospital Basophils Auto (Bld) [#/Vol]Ordered By: Christiano Mcdonnell on 35-68-3583Jadpkpbwq (Bld) [#/Vol]Automated basophil count0.0-0.2FPremier Health Miami Valley Hospital South Basophils/100 WBC Auto (Bld)Ordered By: Christiano Mcdonnell on 12-10-2024 Basophils/100 WBC (Bld)Automated basophil %.[facility] Bilirubin.total [Mass/volume] in Serum or PlasmaOrdered By: Christiano Mcdonnell on 57-69-6924Jpctvtngj [Mass/Vol]Bilirubin.total [Mass/volume] in Serum or Plasma 0.3-1.0[facility] HospitalCalcium [Mass/volume] in Serum or Plasma Ordered By: Christiano Mcdonnell on 53-94-9277Grgksjs [Mass/Vol]Calcium [Mass/volume] in Serum or Plasma8.6-10.3FPremier Health Miami Valley Hospital SouthCarbon dioxide, total [Moles/volume] in Serum or PlasmaOrdered By: Christiano Mcdonnell on 55-14-4942SZ2 [Moles/Vol]Carbon dioxide, total [Moles/volume] in Serum or SiacolUqro72.0-31.0 [facility] HospitalChloride [Moles/volume] in Serum or Plasma Ordered By: Christiano Mcdonnell on 56-02-8245Aszvxhli [Moles/Vol]Chloride [Moles/volume] in Serum or Ottbig00-818Iijmcrzl[address] [place], [place] [address]Complete Blood Count Auto Diffon 73-09-5409Cbammwvlc (Bld) [#/Vol]0.0 10*3/uLNormal 0.0-0.2The [facility] Physician GroupComment on above:Performed By: #### ESR, CBC, CMP #### [facility] [address] [place] [address] USABasophils/100 WBC (Bld)0.4 %Normal.The [facility] Physician GroupComment on above:Performed By: #### ESR, CBC, CMP #### [place] [address] USAEosinophils (Bld) [#/Vol]0.3 10*3/uLNormal0.0-0.45The [facility] Physician GroupComment on above:Performed By: #### ESR, CBC, CMP #### [facility] [address] [place] [address] USAEosinophils/100 WBC (Bld)3.2 %Normal.The [facility] Physician GroupComment on above:Performed By: #### ESR, CBC, CMP #### [place] [address] USAErythrocyte distribution width (RBC) [Ratio]14.9 %Normal 11.9-15.3The [facility] Physician GroupComment on above:Performed By: #### ESR, CBC, CMP #### [facility] [address] [place] [address] USAHematocrit (Bld) [Volume fraction]31.9 %Low34.0-46.4The [facility] Physician GroupComment on above:Performed By: #### ESR, CBC, CMP #### [place] [address] USAHemoglobin (Bld) [Mass/Vol]10.7 g/dLLow11.8-15.4The [facility] Physician GroupComment on above:Performed By: #### ESR, CBC, CMP #### [place] [address] USALymphocytes (Bld) [#/Vol]2.7 10*3/uLNormal1.00-4.8The [facility] Physician GroupComment on above:Performed By: #### ESR, CBC, CMP #### [place] [address] USALymphocytes/100 WBC (Bld)32.6 %Normal.The [facility] Physician GroupComment on above:Performed By: #### ESR, CBC, CMP #### [place] [address] USAMCH (RBC) [Entitic mass]30.9 nxGnatgg74.7-34.3The [facility] Physician GroupComment on above:Performed By: #### ESR, CBC, CMP #### [place] [address] USAMCV (RBC) [Entitic vol]92.4 lXKezqnd39-953Utk [facility] Physician GroupComment on above:Performed By: #### ESR, CBC, CMP #### [place] [address] USAMean Corpuscular HGB Conc33.5 g/jENyiuhb66.0-35.0The [facility] Physician GroupComment on above:Performed By: #### ESR, CBC, CMP #### [place] [address] USAMonocytes (Bld) [#/Vol]0.7 10*3/uLNormal0.0-0.8The [facility] Physician GroupComment on above:Performed By: #### ESR, CBC, CMP #### [place] [address] USAMonocytes/100 WBC (Bld)8.9 %Normal.The [facility] Physician GroupComment on above:Performed By: #### ESR, CBC, CMP #### [place] [address] USANeutrophils (Bld) [#/Vol]4.6 10*3/uLNormal1.8-7.7The [facility] Physician GroupComment on above:Performed By: #### ESR, CBC, CMP #### [place] [address] USANeutrophils/100 WBC (Bld)54.9 %Normal.The [facility] Physician GroupComment on above:Performed By: #### ESR, CBC, CMP #### [facility] [address] [place] [address] USANRBC%0.3 /100{WBC}Normal0-0.5The [facility] Comment on above:Performed By: #### ESR, CBC, CMP #### [place] [address] USAPlatelet mean volume (Bld) [Entitic vol]8.5 fLNormal 6.3-10.7The [facility] Physician GroupComment on above:Performed By: #### ESR, CBC, CMP #### [place] [address] USAPlatelets (Bld) [#/Vol]244 10*3/hBSjkoiq757-029Ltq [facility] Physician GroupComment on above:Performed By: #### ESR, CBC, CMP #### [place] [address] USARBC (Bld) [#/Vol]3.45 10*6/uLLow3.60-5.00The [facility] Physician GroupComment on above:Performed By: #### ESR, CBC, CMP #### [place] [address] USAWBC (Bld) [#/Vol]8.3 10*3/uLNormal3.8-11.6The [facility] Physician GroupComment on above:Performed By: #### ESR, CBC, CMP #### [place] [address] USAComprehensive Metabolic Panelon 99-52-3265Dqpqyiy [Mass/Vol]4.0 g/dLNormal3.5-5.7The [facility] Physician GroupComment on above: Performed By: #### ESR, CBC, CMP #### [place] [address] USAAlbumin/Globulin [Mass ratio]1.6 {ratio}NormalThe [facility] Physician GroupComment on above:Performed By: #### ESR, CBC, CMP #### [place] [address] USAALP [Catalytic activity/Vol]92 U/VLrljrt79-083Eta [facility] Physician GroupComment on above:Result Comment: PERFORMED BY: [place] [address] PATHOLOGIST LOAD BLOCKER BERNARDA GARCIA M.D.Performed By: #### ESR, CBC, CMP #### [place] [address] USAALT [Catalytic activity/Vol]12 U/LNormal7-52The [facility] Physician GroupComment on above:Performed By: #### ESR, CBC, CMP #### [place] [address] USAAnion gap [Moles/Vol]14.0 mmol/LNormal6.0-15.0The [facility] Physician GroupComment on above:Performed By: #### ESR, CBC, CMP #### [place] [address] USAAST [Catalytic activity/Vol]16 U/FPghcct89-13Wfh [facility] Physician GroupComment on above:Performed By: #### ESR, CBC, CMP #### [place] [address] USABilirubin [Mass/Vol]0.4 mg/dLNormal0.3-1.0The [facility] Physician GroupComment on above:Performed By: #### ESR, CBC, CMP #### [place] [address] USACalcium [Mass/Vol]9.8 mg/dLNormal8.6-10.3The [facility] Physician GroupComment on above:Performed By: #### ESR, CBC, CMP #### [address] [place] [address] USAChloride [Moles/Vol]101 mmol/IGtzcpx44-704Hdg [facility] Physician GroupComment on above:Performed By: #### ESR, CBC, CMP #### [facility] [address] [place] [address] USACO2 [Moles/Vol]32.6 mmol/LHigh21.0-31.0The [facility] Physician GroupComment on above:Performed By: #### ESR, CBC, CMP #### [facility] [address] [place] [address] USACreatinine [Mass/Vol]1.26 mg/dLHigh0.60-1.20The [facility] Physician GroupComment on above:Performed By: #### ESR, CBC, CMP #### [facility] [address] [place] [address] USAEstimated GFR42.625 mL/MinNormalThe [facility] Physician [facility] CenterComment on above:Performed By: #### ESR, CBC, CMP #### [facility] [address] [place] [address] USAGlobulin (S) [Mass/Vol]2.5 g/dLNormalThe [facility] Physician GroupComment on above:Performed By: #### ESR, CBC, CMP #### [facility] [address] [place] [address] USAGlucose [Mass/Vol]179 mg/sROrtb50-491Zuo [facility] Physician GroupComment on above:Result Comment: Random Glucose Reference Range is dependent on time and content of last meal. Glucose of more than 200 mg/dL in a nonstressed, ambulatory subject supports the diagnosis of Diabetes Mellitus. ADA recommended reference rangePerformed By: #### ESR, CBC, CMP #### [facility] [address] [place] [address] USAPotassium [Moles/Vol]3.6 mmol/LNormal3.5-5.1The [facility] Physician GroupComment on above:Performed By: #### ESR, CBC, CMP #### [facility] [address] [place] [address] USAProtein [Mass/Vol]6.5 g/dLNormal6.4-8.9The [facility] Physician GroupComment on above:Performed By: #### ESR, CBC, CMP #### [facility] [address] [place] [address] USASodium [Moles/Vol]144 mmol/OAjkbou848-059Pxv [facility] Physician GroupComment on above:Performed By: #### ESR, CBC, CMP #### [facility] [address] [place] [address] USAUrea nitrogen [Mass/Vol]28 mg/dLHigh7-25The [facility] Physician GroupComment on above:Performed By: #### ESR, CBC, CMP #### [place] [address] USACreatinine [Mass/volume] in Serum or PlasmaOrdered By: Christiano Mcdonnell on 82-25-3067Lreazzlawd [Mass/Vol]Creatinine [Mass/volume] in Serum or PlasmaHigh0.60-1.20[facility] HospitalEosinophils Auto (Bld) [#/Vol]Ordered By: Christiano Mcdonnell on 30-77-9822Qgatlcoqgcz (Bld) [#/Vol] Automated eosinophil count0.0-0.45[facility] Eosinophils/100 WBC Auto (Bld)Ordered By: Christiano Mcdonnell on 12-10-2024 Eosinophils/100 WBC (Bld)Automated eosinophil %.[facility] HospitalErythrocyte Sedimentation Rateon 52-09-5355ZJI (Bld) [Velocity]40 mm/hHigh 0-29The [facility] Physician GroupComment on above:Result Comment: PERFORMED BY: [place] [address] PATHOLOGIST LOAD BLOCKER BERNARDA GARCIA M.D.Performed By: #### ESR, CBC, CMP #### [place] [address] USAErythrocyte distribution width Auto (RBC) [Ratio]Ordered By: Christiano Mcdonnell on 14-34-3574Zogrtuzblfi distribution width (RBC) [Ratio] Erythrocyte distribution width [Ratio] by Automated count11.9-15.3FPremier Health Miami Valley Hospital SouthErythrocyte sedimentation rate by Photometric method Ordered By: Christiano Mcdonnell on 30-73-3386HSR Photometric method (Bld) [Velocity] Erythrocyte sedimentation rate by Photometric methodHigh0-29[facility] HospitalGlobulin Calc (S) [Mass/Vol]Ordered By: Christiano Mcdonnell on 98-76-9953Mzeecfnj (S) [Mass/Vol]Serum globulin measurement by calculation (mass/volume)[facility] HospitalGlucose [Mass/volume] in Serum or PlasmaOrdered By: Christiano Mcdonnell on 50-93-5313Grdrmkr [Mass/Vol]Glucose [Mass/volume] in Serum or SxswogUqer49-966YlqvrwqlgTwin City Hospital Comment on above:ADA recommended reference rangeRandom Glucose Reference Range is dependent on time and content of last meal. Glucose of more than 200 mg/dL in a nonstressed, ambulatory subject supports the diagnosisof Diabetes Mellitus. Hematocrit Auto (Bld) [Volume fraction]Ordered By: Christiano Mcdonnell on 12-10-2024 Hematocrit (Bld) [Volume fraction]Hematocrit [Volume Fraction] of Blood by Automated eyrcmNuq23.0-46.4FPremier Health Miami Valley Hospital SouthHemoglobin [Mass/volume] in BloodOrdered By: Christiano Mcdonnell on 09-52-5602Yzjgthojls (Bld) [Mass/Vol]Hemoglobin [Mass/volume] in AifwdSrn00.8-15.4FPremier Health Miami Valley Hospital SouthLeukocytes [#/volume] corrected for nucleated erythrocytes in Blood by Automated counOrdered By: Christiano Mcdonnell on 64-69-6621KWI corrected for nucl RBC Auto (Bld) [#/Vol]Leukocytes [#/volume] corrected for nucleated erythrocytes in Blood by Automated coun3.8-11.6FPremier Health Miami Valley Hospital South Lymphocytes Auto (Bld) [#/Vol]Ordered By: Christiano Mcdonnell on 12-10-2024 Lymphocytes (Bld) [#/Vol]Lymphocytes [#/volume] in Blood by Automated count 1.00-4.8[facility] HospitalLymphocytes/100 WBC Auto (Bld)Ordered By: Christiano Mcdonnell on 02-49-9480Tzjlfsdgcgx/100 WBC (Bld)Lymphocytes/100 leukocytes in Blood by Automated count.[facility] HospitalH Auto (RBC) [Entitic mass]Ordered By: Christiano Mcdonnell on 06-42-0838LME (RBC) [Entitic mass]MCH [Entitic mass] by Automated count24.7-34.3FPremier Health Miami Valley Hospital SouthMCHC Auto (RBC) [Mass/Vol]Ordered By: Christiano Mcdonnell on 25-42-5526STZK (RBC) [Mass/Vol]MCHC [Mass/volume] by Automated count32.0-35.0[facility] HospitalMCV Auto (RBC) [Entitic vol]Ordered By: Christiano Mcdonnell on 94-77-3233ZVL (RBC) [Entitic vol]MCV [Entitic volume] by Automated dsror33-243 [facility] HospitalMonocytes Auto (Bld) [#/Vol]Ordered By: Christiano Mcdonnell on 23-73-8108Ydvjbnaez (Bld) [#/Vol]Automated blood monocyte count 0.0-0.8[facility] HospitalMonocytes/100 WBC Auto (Bld)Ordered By: Christiano Mcdonnell on 86-12-5124Cjyxobtbo/100 WBC (Bld)Automated monocyte %. [facility] HospitalNeutrophils Auto (Bld) [#/Vol]Ordered By: Christiano Mcdonnell on 95-95-8272Tdiphqwgsnp (Bld) [#/Vol]Neutrophils [#/volume] in Blood by Automated count1.8-7.7FPremier Health Miami Valley Hospital SouthNeutrophils/100 WBC Auto (Bld)Ordered By: Christiano Mcdonnell on 94-16-3391Uoziwwbkiae/100 WBC (Bld) Automated neutrophil %.[facility] HospitalNo Panel Information Ordered By: Christiano Mcdonnell on 55-87-1762Rqwonzlky GFR (CKD-EPI)42.625 mL/Min [facility] HospitalPharmacy Creatinine Clearance (ChemN/AFPremier Health Miami Valley Hospital SouthNucleated erythrocytes [Presence] in Blood by Automated countOrdered By: Christiano Mcdonnell on 23-39-6874Ksjvhibox RBC Auto Ql (Bld) Nucleated erythrocytes [Presence] in Blood by Automated count0-0.5FPremier Health Miami Valley Hospital SouthPlatelet mean volume Auto (Bld) [Entitic vol]Ordered By: Christiano Mcdonnell on 56-11-0901Bedjhejw mean volume (Bld) [Entitic vol]Platelet mean volume [Entitic volume] in Blood by Automated count6.3-10.7FPremier Health Miami Valley Hospital SouthPlatelets Auto (Bld) [#/Vol]Ordered By: Christiano Mcdonnell on 79-15-6233Xnimocwit (Bld) [#/Vol]Platelets [#/volume] in Blood by Automated tsyzs993-401IjwwwjeazTwin City HospitalPotassium [Moles/volume] in Serum or PlasmaOrdered By: Christiano Mcdonnell on 31-07-7333Buglnsqpb [Moles/Vol]Potassium [Moles/volume] in Serum or Plasma3.5-5.1FPremier Health Miami Valley Hospital SouthProtein [Mass/volume] in Serum or PlasmaOrdered By: Christiano Mcdonnell on 10-36-3355Snzrcso [Mass/Vol]Protein [Mass/volume] in Serum or Plasma6.4-8.9[facility] HospitalRBC Auto (Bld) [#/Vol]Ordered By: Christiano Mcdonnell on 97-50-2903NNR (Bld) [#/Vol]Erythrocytes [#/volume] in Blood by Automated countLow3.60-5.00 [facility] Hospitalerum or plasma albumin/globulin mass ratio Ordered By: Christiano Mcdonnell on 73-14-0590Xehfvdy/Globulin [Mass ratio]Serum or plasma albumin/globulin mass ratioGreene Memorial Hospitalerum or plasma anion gap determinationOrdered By: Christiano Mcdonnell on 20-83-8548Dgkch gap [Moles/Vol]Serum or plasma anion gap determination6.0-15.0[facility] Hospitalodium [Moles/volume] in Serum or PlasmaOrdered By: Christiano Mcdonnell on 28-61-2527Fpscdk [Moles/Vol]Sodium [Moles/volume] in Serum or Ytdgfp524-961 [facility] HospitalUrea nitrogen [Mass/volume] in Serum or Plasma Ordered By: Christiano Mcdonnell on 40-17-4239Wnro nitrogen [Mass/Vol]Urea nitrogen [Mass/volume] in Serum or PlasmaHigh7-25[facility] HospitalWBC Auto (Bld) [#/Vol]Ordered By: Christiano Mcdonnell on 02-93-2761UDQ (Bld) [#/Vol] Leukocytes [#/volume] in Blood by Automated count3.8-11.6FPremier Health Miami Valley Hospital SouthOffice Visiton 67-92-9191Zbzjvf-up [id number] Harman Mcleod 1940 F Date Provider Department Center 11/05/2024 [facility] Family History Problem Relation Age of Onset Stroke Mother Coronary artery disease Father Heart attack Father Family Status - Relation Status Age at Mother Father Level of Service:[address] [place] OFFICE/OUTPATIENT ESTABLISHED [facility] HospitalANA Antinuclear Antibodieson 10-29-2024 Antinuclear Abs, IFANegativeNormal.The [facility] Physician GroupComment on above:Result Comment: Negative <1:80 Borderline 1:80 Positive >1:80 ICAP nomenclature: AC-0 For more information about Hep-2 cell patterns use ANApatterns.org, the official website for the International Consensus on Antinuclear Antibody (TYLER) Patterns (ICAP). Performed at: CB - [facility] [place] [id number] Contract Clerk Automobile: Esteban Martinez PhD, Phone: [phone] PERFORMED BY: [place] [address] PATHOLOGIST LOAD BLOCKER BERNARDA GARCIA M.D.Performed By: #### CBC, CRP, CMP, URIC, ESR #### [address] #### [place] #### [facility] ,Alanine aminotransferase [Enzymatic activity/volume] in Serum or PlasmaOrdered By: Christiano Mcdonnell on 64-01-0073FRC [Catalytic activity/Vol]Alanine aminotransferase [Enzymatic activity/volume] in Serum or Plasma[address] [place], [place] [address]Albumin [Mass/volume] in Serum or Plasma by Bromocresol green (BCG) dye binding methoOrdered By: Christiano Mcdonnell on 36-86-0848Xosufpz BCG dye [Mass/Vol]Albumin [Mass/volume] in Serum or Plasma by Bromocresol green (BCG) dye binding metho3.5-5.7FPremier Health Miami Valley Hospital SouthAlkaline phosphatase [Enzymatic activity/volume] in Serum or PlasmaOrdered By: Christiano Mcdonnell on 23-24-8140NMQ [Catalytic activity/Vol]Alkaline phosphatase [Enzymatic activity/volume] in Serum or Vvhafr82-888HibayzgzdTwin City Hospital Aspartate aminotransferase [Enzymatic activity/volume] in Serum or PlasmaOrdered By: Christiano Mcdonnell on 71-14-9366SXU [Catalytic activity/Vol]Aspartate aminotransferase [Enzymatic activity/volume] in Serum or Phcuzc28-86UhymxmescTwin City HospitalBasophils Auto (Bld) [#/Vol]Ordered By: Christiano Mcdonnell on 60-81-9152Lgetukkft (Bld) [#/Vol]Automated basophil count0.0-0.2FPremier Health Miami Valley Hospital SouthBasophils/100 WBC Auto (Bld)Ordered By: Christiano Mcdonnell on 41-72-7824Azkkxvcum/100 WBC (Bld)Automated basophil %.[facility] HospitalBilirubin.total [Mass/volume] in Serum or PlasmaOrdered By: Christiano Mcdonnell on 65-14-1739Pupjjzmlz [Mass/Vol]Bilirubin.total [Mass/volume] in Serum or Plasma0.3-1.0[facility] HospitalC reactive protein [Mass/volume] in Serum or PlasmaOrdered By: Christiano Mcdonnell on 44-02-1026YAP [Mass/Vol]C reactive protein [Mass/volume] in Serum or PlasmaHigh0.0-0.5 [facility] HospitalC-Reactive Proteinon 10-84-4666Z-Reactive Protein4.6 mg/dLHigh0.0-0.5The [facility] Physician GroupComment on above:Result Comment: PERFORMED BY: [place] [address] PATHOLOGIST LOAD BLOCKER BERNARDA GARCIA M.D.Performed By: #### CBC, CRP, CMP, URIC, ESR #### [place] [address] [place] #### TYLER #### [facility] ,Calcium [Mass/volume] in Serum or PlasmaOrdered By: Christiano Mcdonnell on 62-68-9016Kwjbfol [Mass/Vol]Calcium [Mass/volume] in Serum or Plasma8.6-10.3 [facility] HospitalCarbon dioxide, total [Moles/volume] in Serum or PlasmaOrdered By: Christiano Martinrow on 30-98-8419BV7 [Moles/Vol]Carbon dioxide, total [Moles/volume] in Serum or Vrpzuo35.0-31.0[facility] HospitalChloride [Moles/volume] in Serum or PlasmaOrdered By: Christianoanali Mcdonnell on 27-72-2455Bksdpnol [Moles/Vol]Chloride [Moles/volume] in Serum or Pmwfgd92-321 [facility] HospitalComplete Blood Count Auto Diffon 10-29-2024 Basophils (Bld) [#/Vol]0.1 10*3/uLNormal0.0-0.2[facility] Comment on above:Performed By: #### CBC, CRP, CMP, URIC, ESR #### [place] [address] [place] #### TYLER #### [facility] ,Basophils/100 WBC (Bld)0.5 %Normal.[facility] Physician GroupComment on above:Performed By: #### CBC, CRP, CMP, URIC, ESR #### [place] [address] [place] #### TYLER #### [facility] ,Eosinophils (Bld) [#/Vol]0.1 10*3/uLNormal0.0-0.45[facility] Comment on above:Performed By: #### CBC, CRP, CMP, URIC, ESR #### [place] [address] [place] #### TYLER #### [facility] ,Eosinophils/100 WBC (Bld)1.3 %Normal.[facility] Physician GroupComment on above:Performed By: #### CBC, CRP, CMP, URIC, ESR #### [place] [address] [place] #### TYLER #### [facility] ,Erythrocyte distribution width (RBC) [Ratio]15.5 %High11.9-15.3The [facility] Physician GroupComment on above:Performed By: #### CBC, CRP, CMP, URIC, ESR #### [address] #### TYLER #### [facility] ,Hematocrit (Bld) [Volume fraction]32.0 %Low34.0-46.4The [facility] Physician GroupComment on above:Performed By: #### CBC, CRP, CMP, URIC, ESR #### [address] #### TYLER #### [facility] ,Hemoglobin (Bld) [Mass/Vol]10.5 g/dLLow11.8-15.4[facility] Comment on above:Performed By: #### CBC, CRP, CMP, URIC, ESR #### [address] #### TYLER #### [facility] ,Lymphocytes (Bld) [#/Vol]2.5 10*3/uLNormal1.00-4.8[facility] Comment on above:Performed By: #### CBC, CRP, CMP, URIC, ESR #### [address] #### TYLER #### [facility] ,Lymphocytes/100 WBC (Bld)22.2 %Normal.[facility] Physician GroupComment on above:Performed By: #### CBC, CRP, CMP, URIC, ESR #### [place] [address] [place] #### TYLER #### [facility] ,MCH (RBC) [Entitic mass]30.1 otYssdzp19.7-34.3[facility] Comment on above:Performed By: #### CBC, CRP, CMP, URIC, ESR #### [place] [address] [place] #### TYLER #### [facility] ,MCV (RBC) [Entitic vol]91.7 fKGbefvn89-013Nul [facility] Physician GroupComment on above:Performed By: #### CBC, CRP, CMP, URIC, ESR #### [place] [address] [place] #### TYLER #### [facility] ,Mean Corpuscular HGB Conc32.8 g/jFPrzyjo03.0-35.0[facility] Comment on above:Performed By: #### CBC, CRP, CMP, URIC, ESR #### [address] #### TYLER #### [facility] ,Monocytes (Bld) [#/Vol]0.8 10*3/uLNormal0.0-0.8[facility] Comment on above:Performed By: #### CBC, CRP, CMP, URIC, ESR #### [place] [address] [place] #### TYLER #### [facility] ,Monocytes/100 WBC (Bld)7.4 %Normal.[facility] Physician GroupComment on above:Performed By: #### CBC, CRP, CMP, URIC, ESR #### [place] [address] [place] #### TYLER #### [facility] ,Neutrophils (Bld) [#/Vol]7.6 10*3/uLNormal1.8-7.7[facility] Comment on above:Performed By: #### CBC, CRP, CMP, URIC, ESR #### [place] [address] [place] #### TYLER #### [facility] ,Neutrophils/100 WBC (Bld)68.6 %Normal.[facility] Physician GroupComment on above:Performed By: #### CBC, CRP, CMP, URIC, ESR #### [facility] [address] [place] [address] #### TYLER #### [facility] ,NRBC%0.1 /100{WBC}Normal0-0.5The [facility] Physician GroupComment on above: Performed By: #### CBC, CRP, CMP, URIC, ESR #### [facility] [address] [place] [address] [place] #### TYLER #### [facility] ,Platelet mean volume (Bld) [Entitic vol]7.9 fLNormal6.3-10.7The [facility] Physician GroupComment on above:Performed By: #### CBC, CRP, CMP, URIC, ESR #### [address] #### TYLER #### [facility] ,Platelets (Bld) [#/Vol]280 10*3/tOUqovan916-498Pat [facility] Comment on above:Performed By: #### CBC, CRP, CMP, URIC, ESR #### [facility] [address] [place] [address] #### TYLER #### [facility] ,RBC (Bld) [#/Vol]3.49 10*6/uLLow3.60-5.00The [facility] Physician GroupComment on above:Performed By: #### CBC, CRP, CMP, URIC, ESR #### [place] [address] [place] #### TYLER #### [facility] ,WBC (Bld) [#/Vol]11.1 10*3/uLNormal3.8-11.6The [facility] Physician GroupComment on above:Performed By: #### CBC, CRP, CMP, URIC, ESR #### [facility] [address] [place] [address] [place] #### TYLER #### [facility] ,Comprehensive Metabolic Panelon 22-73-1321Ddeetib [Mass/Vol]3.7 g/dLNormal 3.5-5.7The [facility] Physician GroupComment on above:Performed By: #### CBC, CRP, CMP, URIC, ESR #### [address] #### TYLER #### [facility] ,Albumin/Globulin [Mass ratio]1.4 {ratio}NormalThe [facility] Comment on above:Performed By: #### CBC, CRP, CMP, URIC, ESR #### [address] #### TYLER #### [facility] ,ALP [Catalytic activity/Vol]78 U/HRfkfdr28-861Dme [facility] Comment on above:Performed By: #### CBC, CRP, CMP, URIC, ESR #### [address] #### TYLER #### [facility] ,ALT [Catalytic activity/Vol]11 U/LNormal7-52The [facility] Comment on above:Performed By: #### CBC, CRP, CMP, URIC, ESR #### [address] #### TYLER #### [facility] ,Anion gap [Moles/Vol]13.8 mmol/LNormal6.0-15.0[facility] Comment on above:Performed By: #### CBC, CRP, CMP, URIC, ESR #### [place] [address] [place] #### TYLER #### [facility] ,AST [Catalytic activity/Vol]13 U/PWhsilw03-31Zph [facility] Comment on above:Performed By: #### CBC, CRP, CMP, URIC, ESR #### [facility] [address] [place] [address] [place] #### TYLER #### [facility] ,Bilirubin [Mass/Vol]0.4 mg/dLNormal0.3-1.0The [facility] Physician GroupComment on above:Performed By: #### CBC, CRP, CMP, URIC, ESR #### [facility] [address] [place] [address] #### TYLER #### [facility] ,Calcium [Mass/Vol]9.3 mg/dLNormal8.6-10.3The [facility] Physician GroupComment on above:Performed By: #### CBC, CRP, CMP, URIC, ESR #### [facility] [address] [place] [address] #### TYLER #### [facility] ,Chloride [Moles/Vol]100 mmol/AZgundl78-865Cdc [facility] Physician GroupComment on above:Performed By: #### CBC, CRP, CMP, URIC, ESR #### [facility] [address] [place] [address] #### TYLER #### [facility] ,CO2 [Moles/Vol]30.5 mmol/YXzucpi82.0-31.0The [facility] Physician GroupComment on above:Performed By: #### CBC, CRP, CMP, URIC, ESR #### [address] #### TYLER #### [facility] ,Creatinine [Mass/Vol]1.29 mg/dLHigh0.60-1.20[facility] Comment on above:Performed By: #### CBC, CRP, CMP, URIC, ESR #### [facility] [address] [place] [address] [place] #### TYLER #### [facility] ,Estimated GFR41.438 mL/MinNormalThe [facility] Physician GroupComment on above: Performed By: #### CBC, CRP, CMP, URIC, ESR #### [facility] [address] [place] [address] [place] #### TYLER #### [facility] ,Globulin (S) [Mass/Vol]2.7 g/dLNormCleveland Clinic Akron Generale [facility] Physician GroupComment on above:Performed By: #### CBC, CRP, CMP, URIC, ESR #### [place] [address] [place] #### TYLER #### [facility] ,Glucose [Mass/Vol]134 mg/fRYjdo93-117Yot [facility] Physician GroupComment on above:Result Comment: Random Glucose Reference Range is dependent on time and content of last meal. Glucose of more than 200 mg/dL in a nonstressed, ambulatory subject supports the diagnosis of Diabetes Mellitus. ADA recommended reference rangePerformed By: #### CBC, CRP, CMP, URIC, ESR #### [address] #### TYLER #### [facility] ,Potassium [Moles/Vol]3.3 mmol/LLow3.5-5.1The [facility] Physician GroupComment on above:Performed By: #### CBC, CRP, CMP, URIC, ESR #### [place] [address] [place] #### TYLER #### [facility] ,Protein [Mass/Vol]6.4 g/dLNormal6.4-8.9The [facility] Physician GroupComment on above:Performed By: #### CBC, CRP, CMP, URIC, ESR #### [place] [address] [place] #### TYLER #### [facility] ,Sodium [Moles/Vol]141 mmol/TWsftul665-676Kex [facility] Physician GroupComment on above:Performed By: #### CBC, CRP, CMP, URIC, ESR #### [place] [address] [place] #### TYLER #### [facility] ,Urea nitrogen [Mass/Vol]21 mg/dLNormal7-25The [facility] Physician GroupComment on above:Performed By: #### CBC, CRP, CMP, URIC, ESR #### [facility] [address] [place] [address] #### TYLER #### [facility] ,Creatinine [Mass/volume] in Serum or PlasmaOrdered By: Christiano Mcdonnell on 37-87-5736Jmckjsqnnv [Mass/Vol]Creatinine [Mass/volume] in Serum or PlasmaHigh 0.60-1.20[facility] HospitalEosinophils Auto (Bld) [#/Vol]Ordered By: Christiano Mcdonnell on 72-16-2130Yrvdrqaasgy (Bld) [#/Vol]Automated eosinophil count0.0-0.45[facility] HospitalEosinophils/100 WBC Auto (Bld) Ordered By: Christiano Mcdonnell on 14-18-6243Tgtdeesssky/100 WBC (Bld)Automated eosinophil %.[facility] HospitalErythrocyte Sedimentation Rateon 23-40-0089FOR (Bld) [Velocity]78 mm/hHigh0-29[facility] Comment on above:Result Comment: PERFORMED BY: [place] [address] PATHOLOGIST LOAD BLOCKER BERNARDA GARCIA M.D.Performed By: #### CBC, CRP, CMP, URIC, ESR #### [facility] [address] [place] [address] #### TYLER #### [facility] ,Erythrocyte distribution width Auto (RBC) [Ratio]Ordered By: Christiano Mcdonnell on 31-14-2384Meopuuulbuc distribution width (RBC) [Ratio]Erythrocyte distribution width [Ratio] by Automated delrjPptl26.9-15.3FPremier Health Miami Valley Hospital South Erythrocyte sedimentation rate by Photometric methodOrdered By: Christiano Mcdonnell on 22-08-5291CKQ Photometric method (Bld) [Velocity]Erythrocyte sedimentation rate by Photometric methodHigh0-29[facility] HospitalGlobulin Calc (S) [Mass/Vol]Ordered By: Christiano Mcdonnell on 51-08-5701Slllcvna (S) [Mass/Vol] Serum globulin measurement by calculation (mass/volume)[facility] HospitalGlucose [Mass/volume] in Serum or PlasmaOrdered By: Christiano Mcdonnell on 83-73-3357Zvhljca [Mass/Vol]Glucose [Mass/volume] in Serum or PlasmaHigh 70-100[facility] City HospitalComment on above:ADA recommended reference rangeRandom Glucose Reference Range is dependent on time and content of last meal. Glucose of more than 200 mg/dL in a nonstressed, ambulatory subject supports the diagnosisof Diabetes Mellitus.Hematocrit Auto (Bld) [Volume fraction]Ordered By: Christiano Mcdonnell on 34-55-1690Idzfkuvara (Bld) [Volume fraction]Hematocrit [Volume Fraction] of Blood by Automated bcswxRta05.0-46.4 [facility] HospitalHemoglobin [Mass/volume] in BloodOrdered By: Christiano Mcdonnell on 67-91-2362Ihdvesbbew (Bld) [Mass/Vol]Hemoglobin [Mass/volume] in DjyugBxm93.8-15.4FPremier Health Miami Valley Hospital SouthLeukocytes [#/volume] corrected for nucleated erythrocytes in Blood by Automated counOrdered By: Christiano Mcdonnell on 56-30-6113KUV corrected for nucl RBC Auto (Bld) [#/Vol] Leukocytes [#/volume] corrected for nucleated erythrocytes in Blood by Automated coun3.8-11.6FPremier Health Miami Valley Hospital SouthLymphocytes Auto (Bld) [#/Vol] Ordered By: Christiano Mcdonnell on 43-08-4086Orzufywwtze (Bld) [#/Vol]Lymphocytes [#/volume] in Blood by Automated count1.00-4.8[facility] Lymphocytes/100 WBC Auto (Bld)Ordered By: Christiano Mcdonnell on 10-29-2024 Lymphocytes/100 WBC (Bld)Lymphocytes/100 leukocytes in Blood by Automated count. [facility] HospitalH Auto (RBC) [Entitic mass]Ordered By: Christiano Mcdonnell on 87-51-2843EMB (RBC) [Entitic mass]MCH [Entitic mass] by Automated count24.7-34.3FPremier Health Miami Valley Hospital SouthMCHC Auto (RBC) [Mass/Vol]Ordered By: Christiano Mcdonnell on 82-03-0413UGIG (RBC) [Mass/Vol]MCHC [Mass/volume] by Automated count32.0-35.0[facility] HospitalMCV Auto (RBC) [Entitic vol]Ordered By: Christiano Mcdonnell on 72-49-3929ZNH (RBC) [Entitic vol]MCV [Entitic volume] by Automated -192TlkbxviksTwin City HospitalMonocytes Auto (Bld) [#/Vol]Ordered By: Christiano Mcdonnell on 07-11-9989Ayzggsjzq (Bld) [#/Vol]Automated blood monocyte count0.0-0.8[facility] HospitalMonocytes/100 WBC Auto (Bld)Ordered By: Christiano Mcdonnell on 40-24-3044Gopwkgqqd/100 WBC (Bld)Automated monocyte %.[facility] HospitalNeutrophils Auto (Bld) [#/Vol]Ordered By: Christiano Mcdonnell on 66-87-3679Rtcwictrpvj (Bld) [#/Vol]Neutrophils [#/volume] in Blood by Automated count1.8-7.7FPremier Health Miami Valley Hospital SouthNeutrophils/100 WBC Auto (Bld) Ordered By: Christiano Mcdonnell on 59-15-2113Gkmmjyuirjx/100 WBC (Bld)Automated neutrophil %.[facility] HospitalNo Panel InformationOrdered By: Christiano Mcdonnell on 12-93-3432Berxnkdsk GFR (CKD-EPI)41.438 mL/MinTwin City HospitalPharmacy Creatinine Clearance (ChemN/AFPremier Health Miami Valley Hospital SouthNucleated erythrocytes [Presence] in Blood by Automated count Ordered By: Christiano Mcdonnell on 40-84-4284Vmovtudfg RBC Auto Ql (Bld)Nucleated erythrocytes [Presence] in Blood by Automated count0-0.5FPremier Health Miami Valley Hospital SouthPlatelet mean volume Auto (Bld) [Entitic vol]Ordered By: Christiano Mcdonnell on 92-38-2816Vophgvfm mean volume (Bld) [Entitic vol]Platelet mean volume [Entitic volume] in Blood by Automated count6.3-10.7FPremier Health Miami Valley Hospital SouthPlatelets Auto (Bld) [#/Vol]Ordered By: Christiano Mcdonnell on 10-29-2024 Platelets (Bld) [#/Vol]Platelets [#/volume] in Blood by Automated -600 [facility] HospitalPotassium [Moles/volume] in Serum or Plasma Ordered By: Christiano Mcdonnell on 38-49-2557Tspsjaylc [Moles/Vol]Potassium [Moles/volume] in Serum or PlasmaLow3.5-5.1FPremier Health Miami Valley Hospital South Protein [Mass/volume] in Serum or PlasmaOrdered By: Christiano Mcdonnell on 10-29-2024 Protein [Mass/Vol]Protein [Mass/volume] in Serum or Plasma6.4-8.9[facility] HospitalRBC Auto (Bld) [#/Vol]Ordered By: Christiano Mcdonnell on 11-01-6782YNI (Bld) [#/Vol]Erythrocytes [#/volume] in Blood by Automated count Low3.60-5.00[facility] Hospitalerum nuclear antibody titerOrdered By: Christiano Mcdonnell on 85-01-6559Ymerirg Ab (S) [Titer]Serum nuclear antibody titer.[facility] HospitalComment on above:Negative <1:80 Borderline 1:80 Positive >1:80ICAP nomenclature: AC-0For more information about Hep-2 cell patterns useANApatterns.org, the official website for theInternational Consensus on Antinuclear Antibody (TYLER)Patterns (ICAP).Performed at: [place] [id number] Director: Esteban Martinez PhD, Phone: [phone] or plasma albumin/globulin mass ratioOrdered By: Christiano Mcdonnell on 10-29-2024 Albumin/Globulin [Mass ratio]Serum or plasma albumin/globulin mass ratio [facility] Hospitalerum or plasma anion gap determinationOrdered By: Christiano Mcdonnell on 49-66-4560Gwunz gap [Moles/Vol]Serum or plasma anion gap determination6.0-15.0[facility] Hospitalodium [Moles/volume] in Serum or PlasmaOrdered By: Christiano Mcdonnell on 95-76-8813Ltpigs [Moles/Vol]Sodium [Moles/volume] in Serum or Ocqamk535-746MuwghoiyyTwin City HospitalUrate [Mass/volume] in Serum or PlasmaOrdered By: Christiano Mcdonnell on 69-22-2893Hqwxh [Mass/Vol]Urate [Mass/volume] in Serum or Plasma2.3-6.6FPremier Health Miami Valley Hospital SouthUrea nitrogen [Mass/volume] in Serum or PlasmaOrdered By: Christiano Mcdonnell on 00-93-7305Iknj nitrogen [Mass/Vol]Urea nitrogen [Mass/volume] in Serum or Plasma7-[facility] City HospitalUric Acidon 03-83-2990Skzgv [Mass/Vol]4.7 mg/dLNormal2.3-6.6The [facility] Physician GroupComment on above: Performed By: #### CBC, CRP, CMP, URIC, ESR #### [facility] [address] #### TYLER #### [facility] ,WBC Auto (Bld) [#/Vol]Ordered By: Christiano Mcdonnell on 53-09-5620IXV (Bld) [#/Vol] Leukocytes [#/volume] in Blood by Automated count3.8-11.6FPremier Health Miami Valley Hospital SouthCNPNon 38-20-3881PPAIMaflpqugc (HEMASA) HARMAN MCLEOD ([id number]) 1940 F Date Time Provider Department 10/09/24 [...] daily at bedtime. Cut in half - Fuels-7-LGK-EPA-Fish Oil 1,000 mg (120 mg-180 mg) cap Take 2 g by mouth twice daily. - isosorbide mononitrate ER (IMDUR) 60 mg 24 hr tablet Take 60 mg by mouth twice daily. Problem List As Of Date 10/09/2024 Noted Resolved Hypertension [I10] DM type 2 (diabetes mellitus, type 2) ([facility]) [E1* Essential hypertension [I10] 01/16/2017 Type 2 diabetes mellitus without complication, *01/16/2017 Hypothyroidism [E03.9] 01/16/2017 Dyslipidemia [E78.5] 01/16/2017 Atherosclerosis of [place] coronary artery of na*01/16/2017 S/P coronary artery stent placement [Z95.5] 01/16/2017 Moderate smoker (20 or less per day) [F17.210] 01/16/2017 PAD (peripheral artery disease) ([facility]) [I73.9] 01/16/2017 Vaginal lesion [N89.8] 01/20/2017 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 Stage 3a chronic kidney disease (HCC) [N18.31] 02/14/2023 Encounter Status:Closed by VERNELL DEY on 10/09/24NormalCashtabula county medical centerand [facility] W Auto Differential panel (Bld)on 09-00-1532Nurpjdepc (Bld) [#/Vol] 0.04 10*3/uLNINFAkron Children'S HospitalBasophils/100 WBC (Bld)0.4 %[facility] Differential cell count method Nom (Bld)AutoCleveland ClinicEosinophils (Bld) [#/Vol]0.30 10*3/uLNINFCleCleveland Clinic FoundationEosinophils/100 WBC (Bld)2.9 %[facility]'S HospitalErythrocyte distribution width (RBC) [Ratio]14.6 %11.5 - 15.0 %[facility]'S HospitalHematocrit (Bld) [Volume fraction]31.9 %Low36.0 - 46.0 %[facility] Hemoglobin (Bld) [Mass/Vol]10.6 g/dLLow11.5 - 15.5 g/dLAkron Children'S HospitalImmature granulocytes (Bld) [#/Vol]0.07 10*3/uLNINFAkron Children'S HospitalImmakettering health [facility]field granulocytes/100 WBC (Bld)0.7 %[facility]'S HospitalInterpretation and review of laboratory resultsAbnormalClevelcritical access hospital ClinicLymphocytes (Bld) [#/Vol]2.55 10*3/uL [facility] HospitalLymphocytes/100 WBC (Bld)24.6 %[facility] HospitalH (RBC) [Entitic mass]31.0 pg26.0 - 34.0 pgCGreen Cross HospitalHC (RBC) [Mass/Vol]33.2 g/dL30.5 - 36.0 g/dLPike Community HospitalV (RBC) [Entitic vol]93.3 fL80.0 - 100.0 fLCOhioHealth Nelsonville Health CenterMonocytes (Bld) [#/Vol]0.86 10*3/uLNINFAkron Children'S Hospital Monocytes/100 WBC (Bld)8.3 %[facility] Children'S HospitalNeutrophils (Bld) [#/Vol]6.53 10*3/uLAkron Children'S HospitalNeutrophils/100 WBC (Bld)63.1 %[facility] HospitalNucleated RBC (Bld) [#/Vol]NINFClevelEast Ohio Regional HospitalNucleated RBC/100 WBC (Bld) [Ratio]0.0 % /100 WBCAkron Children'S HospitalPlatelet mean volume (Bld) [Entitic vol]8.9 fLLow9.0 - 12.7 fLCparma community general hospital ClinicPlatelets (Bld) [#/Vol]290 10*3/uLAkron Children'S HospitalRBC (Bld) [#/Vol]3.42 10*6/uLLow3.90 - 5.20 m/uLAkron Children'S HospitalWBC (Bld) [#/Vol] 10.35 10*3/uLSt. Elizabeth Hospital ClinicBasophils (Bld) [#/Vol]0.04 10*3/uL Normal<0.11CMadison Health on above:Order Comment: Specimen Type: BLOOD SPECIMEN Ordering Facility: [facility] Address: [address] [place], [place] [address]Performed By: #### [id number] #### [facility] CLIA [id number] [address] [place], [place] [address]Texrtmcnv/100 WBC (Bld)0.4 %NormalPremier Health Miami Valley Hospital North Comment on above:Order Comment: Specimen Type: BLOOD SPECIMEN Ordering Facility: [facility] Address: [address] [place], [place] [address]Performed By: #### [id number] #### [facility] CLIA [id number] [address] [place] [address] 6[address]Iwcpfjqsiwok cell count method Nom (Bld)AutoNormalCTrumbull Regional Medical CenterCommemorial healthcare on above:Order Comment: Specimen Type: BLOOD SPECIMEN Ordering Facility: [facility] Address: [address] [place], [place] [address]Performed By: #### [id number] #### [facility] CLIA [id number] [address] [place] [address] 13373Hisuugtjkxm (Bld) [#/Vol]0.30 10*3/uLNormal<0.46[facility] on above:Order Comment: Specimen Type: BLOOD SPECIMEN Ordering Facility: [facility] Address: [address] [place], [place] [address]Performed By: #### [id number] #### [facility] CLIA [id number] [address] [place], [place] [address]Yszdtkocvlk/100 WBC (Bld)2.9 %NormalPremier Health Miami Valley Hospital North Comment on above:Order Comment: Specimen Type: BLOOD SPECIMEN Ordering Facility: [facility] Address: [address] [place], [place] [address]Performed By: #### [id number] #### [facility] CLIA [id number] [address] [place] [address] 07678Atczpxovspg distribution width (RBC) [Ratio]14.6 %Normal 11.5-15.0[facility] on above:Order Comment: Specimen Type: BLOOD SPECIMEN Ordering Facility: [facility] Address: [address] [place], [place] [address]Performed By: #### [id number] #### [facility] CLIA [id number] [address] [place] [address] 24244Udavngtzjl (Bld) [Volume fraction]31.9 %Low36.0-46.0[facility] on above:Order Comment: Specimen Type: BLOOD SPECIMEN Ordering Facility: [facility] Address: [address] [place], [place] [address]Performed By: #### [id number] #### [facility] CLIA [id number] [address] [place] [address] 15145Kfoplgdzkn (Bld) [Mass/Vol]10.6 g/dLLow11.5-15.5CMadison Health on above:Order Comment: Specimen Type: BLOOD SPECIMEN Ordering Facility: [facility] Address: [address] [place], [place] [address]Performed By: #### [id number] #### [facility] CLIA [id number] [address] [place] [address]1195Dalbrpsv granulocytes (Bld) [#/Vol]0.07 10*3/uLNormal<0.10 [facility] on above:Order Comment: Specimen Type: BLOOD SPECIMEN [facility] Address: [address] [place], [place] [address]Performed By: #### 86548-7 #### [facility] CLIA [id number] [address] [place] [address] 32717Muvnycjd granulocytes/100 WBC (Bld)0.7 %NormalPremier Health Miami [facility] Hospital North on above:Order Comment: Specimen Type: BLOOD SPECIMEN [facility] Address: [address] [place], [place] [address]Performed By: #### 21384-9 #### [facility] CLIA [id number] [address] [place], [place] [address]Ngutgefbqzx (Bld) [#/Vol]2.55 10*3/uLNormal1.00-4.00[facility] on above:Order Comment: Specimen Type: BLOOD SPECIMEN [facility] Address: [address] [place], [place] [address]Performed By: #### 54813-7 #### [facility] CLIA [id number] [address] [place] [address] 65881Eeqdexmpktj/100 WBC (Bld)24.6 %NormalPremier Health Miami Valley Hospital North on above:Order Comment: Specimen Type: BLOOD SPECIMEN [facility] Address: [address] [place], [place] [address]Performed By: #### 31941-3 #### [facility] CLIA [id number] [address] [place] [address] 44725FTO (RBC) [Entitic mass]31.0 uvXkrbqo43.0-34.0[facility] on above:Order Comment: Specimen Type: BLOOD SPECIMEN [facility] Address: [address] [place], [place] [address]Performed By: #### 10621-2 #### [facility] CLIA [id number] [address] [place] [address] 09494PBLJ (RBC) [Mass/Vol]33.2 g/oVPeiwws21.5-36.0[facility] on above:Order Comment: Specimen Type: BLOOD SPECIMEN [facility] Address: [address] [place], [place] [address]Performed By: #### 90817-5 #### [facility] CLIA [id number] [address] [place] [address] 67564WEG (RBC) [Entitic vol]93.3 uAPatemn44.0-100.0[facility] on above:Order Comment: Specimen Type: BLOOD SPECIMEN [facility] Address: [address] [place], [place] [address]Performed By: #### 84410-0 #### [facility] CLIA [id number] [address] [place] [address] 90381Edkngieff (Bld) [#/Vol]0.86 10*3/uLNormal<0.87[facility] on above:Order Comment: Specimen Type: BLOOD SPECIMEN [facility] Address: [address] [place], [place] [address]Performed By: #### 42463-1 #### [facility] CLIA [id number] [address] [place] [address] 43408Qzlildvfb/100 WBC (Bld)8.3 %NormalPremier Health Miami [facility] Comment on above:Order Comment: Specimen Type: BLOOD SPECIMEN [facility] Address: [address] [place], [place] [address]Performed By: #### 54550-3 #### [facility] CLIA [id number] [address] [place] [address] 07417Ocajkucbmuo (Bld) [#/Vol]6.53 10*3/uLNormal1.45-7.50[facility] on above:Order Comment: Specimen Type: BLOOD SPECIMEN [facility] Address: [address] [place], [place] [address]Performed By: #### 86806-5 #### [facility] CLIA [id number] [address] [place] [address] 09970Qtzljalbneh/100 WBC (Bld)63.1 %NormalPremier Health Miami Valley Hospital North on above:Order Comment: Specimen Type: BLOOD SPECIMEN [facility] Address: [address] [place], [place] [address]Performed By: #### 31238-3 #### [facility] CLIA [id number] [address] [place] [address] 15943Mqbsukgmk RBC (Bld) [#/Vol]10*3/uLNormal<0.01[facility] on above:Order Comment: Specimen Type: BLOOD SPECIMEN [facility] Address: [address] [place], [place] [address]Performed By: #### 34829-7 #### [facility] CLIA [id number] [address] [place], [place] [address]Zigpdolfb RBC/100 WBC (Bld) [Ratio]0.0 /100 WBCNormalCMadison Health on above:Order Comment: Specimen Type: BLOOD SPECIMEN [facility] Address: [address] [place], [place] [address]Performed By: #### 05165-7 #### [facility] CLIA [id number] [address] [place], [place] [address]Tzufaqyp mean volume (Bld) [Entitic vol]8.9 fLLow9.0-12.7 [facility] on above:Order Comment: Specimen Type: BLOOD SPECIMEN [facility] Address: [address] [place], [place] [address]Performed By: #### 75064-9 #### [facility] CLIA [id number] [address] [place], [place] [address]Pefzpumwt (Bld) [#/Vol]290 10*3/tDNwkagh799-138FoczmscesPremier Health Miami [facility] Hospital North on above:Order Comment: Specimen Type: BLOOD SPECIMEN [facility] Address: [address] [place], [place] [address]Performed By: #### 41510-3 #### [facility] CLIA [id number] [address] [place], [place] [address]EUY (Bld) [#/Vol]3.42 10*6/uLLow3.90-5.20[facility] on above:Order Comment: Specimen Type: BLOOD SPECIMEN [facility] Address: [address] [place] [address], [place] [address]Xsbohchtd By: #### 60392-1 #### [facility] CLIA [id number] [address] [place] [address] 81170UXJ (Bld) [#/Vol]10.35 10*3/uLNormal3.70-11.00[facility] Hospital NorthComment on above:Order Comment: Specimen Type: BLOOD SPECIMEN [facility] Address: [facility] [place], [place] [address]Fhclxlpda By: #### 45528-1 #### [facility] CLIA [id number] [address] [place], [place] [address]EVOXPIch 87-63-2037CCLCBEWacoj (SP) Office (HEMASA) HARSHAHARMAN Coronel ([id number]) 1940 F Date Time Provider Department 10/08/24 1:00 PM VAIBHAV ASHTON During your visit today, we recorded the following information about you: Temperature Pulse Respiration Blood pressure 97.2 degrees 75/minute 16/minute 144/63 Weight Height 67.5 kg 1.549 m Vaibhav Ashton MD 10/08/2024 2:03 PM Addendum PATIENT NAME: Harman Coronel [facility] NO.: [id number] ATTENDING PHYSICIAN: Vaibhav Ashton MD DATE OF SERVICE: 10/08/24 Some of the elements of this note have been copied from Winnie MILLAN previous progress note dated 06/20/23. All the information has been reviewed carefully. CC: Follow up Diagnosis: T1b, N0, M0- R breast, Tumor 9 mm, Grade 2, Margins negative, Negative LVI, 2 SNL negative, ER and [place] >95% positive, Her2 IHC 1+ Treatment History: [...] in Jun 2024 - Mammogram done at [facility] - On eliquis for Afib PAST [...] 30 04/28/2020 28 Crea (more content not included)...NormalPremier Health Miami Valley Hospital NorthComprehensive metabolic 2000 panelOrdered By: Ben Vargas on 91-06-6555Pounybl [Mass/Vol]3.9 g/dL3.9 - 4.9 g/dLMeta ClinicALP [Catalytic activity/Vol]88 U/L34 - 123 U/L [...] eGFRmay not accurately reflect actual GFR.Glucose [Mass/Vol]122 mg/bPUmlc99 - 99 mg/dLMeta ClinicComment on above:The [place] Diabetes Association (ADA) provides guidance for cutoff [...] Standards of Medical Care in Diabetes 2016, [place] Diabetes Association. Diabetes Care. 2016.39(Suppl 1). Interpretation and review of laboratory resultsAbnormalCleveland ClinicPotassium [Moles/Vol]3.4 mmol/LLow3.7 - 5.1 mmol/LCleveland ClinicProtein [Mass/Vol]6.9 g/dL6.3 - 8.0 g/dLCleveland ClinicSodium [Moles/Vol]141 mmol/L136 - 144 mmol/L [facility] nitrogen [Mass/Vol]19 mg/dL7 - 21 mg/dLChillicothe Hospitalprehensive metabolic 2000 panelon 55-77-0195Cutircc [Mass/Vol]3.9 g/dLNormal3.9-4.9CMadison Health on above:Order Comment: Specimen Type: BLOOD SPECIMEN [facility] Address: [address] [place], [place] [address]Performed By: #### 39215-8 #### [facility] CLIA [id number] [address] [place], [place] [address]GJE [Catalytic activity/Vol]88 U/JPuxala55-739CzckvagqkPremier Health Miami Valley Hospital North on above:Order Comment: Specimen Type: BLOOD SPECIMEN [facility] Address: [address] [place], [place] [address]Performed By: #### 33492-6 #### [facility] CLIA [id number] [address] [place], [place] [address]GZP [Catalytic activity/Vol]7 U/LNormal7-38[facility] on above:Order Comment: Specimen Type: BLOOD SPECIMEN [facility] Address: [address] [place], [place] [address]Performed By: #### 06965-4 #### [facility] CLIA [id number] [address] [place], [place] [address]Ictso gap [Moles/Vol]13 mmol/LNormal8-15[facility] on above:Order Comment: Specimen Type: BLOOD SPECIMEN [facility] Address: [address] [place], [place] [address]Performed By: #### 37318-1 #### [facility] CLIA [id number] [address] [place], [place] [address]EMD [Catalytic activity/Vol]11 U/NEvl80-61RhihkrlrePremier Health Miami Valley Hospital North on above:Order Comment: Specimen Type: BLOOD SPECIMEN [facility] Address: [address] [place], [place] [address]Performed By: #### 29932-5 #### [facility] CLIA [id number] [address] [place], [place] [address]Nprncpemi [Mass/Vol]0.3 mg/dLNormal0.2-1.3CTrumbull Regional Medical CenterCommemorial healthcare on above:Order Comment: Specimen Type: BLOOD SPECIMEN [facility] Address: [address] [place], [place] [address]Performed By: #### 46329-2 #### [facility] CLIA [id number] [address] [place], [place] [address]Ckzbdhk [Mass/Vol]9.7 mg/dLNormal8.5-10.2CTrumbull Regional Medical CenterComment on above:Order Comment: Specimen Type: BLOOD SPECIMEN [facility] Address: [address] [place], [place] [address]Performed By: #### 27072-1 #### [facility] CLIA [id number] [address] [place] [address] 715[address]Dzztquas [Moles/Vol]99 mmol/PCjhifs10-761NkaanmtuiPremier Health Miami Valley Hospital NorthComment on above:Order Comment: Specimen Type: BLOOD SPECIMEN [facility] Address: [address] [place], [place] [address]Performed By: #### 47934-6 #### [facility] CLIA [id number] [address] [place], [place] [address]JD0 [Moles/Vol]29 mmol/VFecubc17-43YqayezzboPremier Health Miami Valley Hospital North Comment on above:Order Comment: Specimen Type: BLOOD SPECIMEN [facility] Address: [address] [place], [place] [address]Performed By: #### 84184-0 #### [facility] CLIA [id number] [address] [place], [place] [address]Oqvxhlcwas [Mass/Vol]1.49 mg/dLHigh0.58-0.96[facility]aritan Medical Centerment on above:Order Comment: Specimen Type: BLOOD SPECIMEN [facility] Address: [address] [place] [address]Ozwhynroi By: #### 48313-5 #### [facility] CLIA [id number] [address] [place] [address]44[address]Afkkujnqxr and Glomerular filtration rate.predicted panel (S/P/Bld)35 mL/min/1.73m???Low>=60[facility] on above: Order Comment: Specimen Type: BLOOD SPECIMEN [facility] Address: [address] [place] [address]Ctozlm Comment: Estimated Glomerular Filtration Rate (eGFR) is [...] not accurately reflect actual GFR.Performed By: #### 10758-7 #### [facility] CLIA [id number] [address] [place] [address] 35117Hrqqqfh [Mass/Vol]122 mg/lCDeqd69-33QicsauciePremier Health Miami Valley Hospital North Comment on above:Order Comment: Specimen Type: BLOOD SPECIMEN [facility] Address: [address] [place] [address]Xrfnpp Comment: The [place] Diabetes Association (ADA) provides guidance for cutoff [...] Standards of Medical Care in Diabetes 2016, [place] Diabetes Association. Diabetes Care. 2016.39(Suppl 1).Performed By: #### 22407-0 #### [facility] CLIA [id number] [address] [place], [place] [address]Ugslwkxvq [Moles/Vol]3.4 mmol/LLow3.7-5.1CMadison Health on above:Order Comment: Specimen Type: BLOOD SPECIMEN [facility] Address: [address] [place], [place] [address]Performed By: #### 97372-4 #### [facility] CLIA [id number] [address] [place] [address] 944[address]Ydrrscy [Mass/Vol]6.9 g/dLNormal6.3-8.0[facility] on above:Order Comment: Specimen Type: BLOOD SPECIMEN [facility] Address: [address] [place], [place] [address]Performed By: #### 57944-1 #### [facility] CLIA [id number] [address] [place] [address]Achlny [Moles/Vol]141 mmol/SXpjtmi374-285EzzakaxzwPremier Health Miami Valley Hospital North on above:Order Comment: Specimen Type: BLOOD SPECIMEN [facility] Address: [address] [place], [place] [address]Performed By: #### 11905-8 #### [facility] CLIA [id number] [address] [place] [address] 56[address]Hbpe nitrogen [Mass/Vol]19 mg/dLNormal7-21[facility] on above:Order Comment: Specimen Type: BLOOD SPECIMEN [facility] Address: [address] [place], [place] [address]Performed By: #### 82720-2 #### [facility] CLIA [id number] [address] [place] [address] 389[address]Ivymwusx [facility] 75-44-2319Tbukbicd [Mass/Vol]143.0 ng/mL Ifprep35.7-205.1CMadison Health on above:Order Comment: Specimen Type: BLOOD SPECIMEN [facility] Address: [address] [place], [place] [address]Performed By: #### 2132-9, 2276-4, 19457-4, 2283-8 #### [facility] CLIA [id number] [address] [place] [address] [place] AMERICAFolate SerPl-mCncon 02-83-2770Smnohg [Mass/Vol]10.2 ng/mLNormal>4.7CMadison Health on above:Order Comment: Specimen Type: BLOOD SPECIMEN [facility] Address: [address] [place], [place] [address]Performed By: #### 2132-9, 2276-4, 33548-8, 2283-8 #### [facility] CLIA [id number] [address] [place] [address] STATES OF NEWARK HOSPITALIron and Iron binding capacity panelon 76-51-3015Dfrd [Mass/Vol]48 ug/rSPuxrxu78-370VqzvenjzaPremier Health Miami Valley Hospital North on above:Order Comment: Specimen Type: BLOOD SPECIMEN [facility] Address: [address] [place], [place] [address]Performed By: #### 2132-9, 6-4, 31418-5, 2283-8 #### [facility] CLIA [id number] [address] [place] [address] STATES [facility]IAL HOSPITALIron binding capacity [Mass/Vol]237 ug/vUBhjizc193-205XdnxnrqmjPremier Health Miami Valley Hospital North on above:Order Comment: Specimen Type: BLOOD SPECIMEN [facility] Address: [address] [place], [place] [address]Performed By: #### 2132-9, 6-4, 13249-4, 2283-8 #### [facility] CLIA [id number] [address] [place] [address] AMERICAIron/TIBC [Molar ratio]20.3 %Ommesx39.0-57.0[facility] on above:Order Comment: Specimen Type: BLOOD SPECIMEN [facility] Address: [address] [place], [place] [address]Performed By: #### 2132-9, 2276-4, 15732-2, 2284-8 #### [facility] CLIA [id number] [address] [place], [place] [address]Vit B12 SerPl-[facility] 77-59-1327Sfpqxfmxb (Vitamin B12) [Mass/Vol]214 pg/sJBrb907-1699SbwhpfoyaMadison Health on above:Order Comment: Specimen Type: BLOOD SPECIMEN [facility] Address: [address] [place], [place] [address]Performed By: #### 2132-9, 2276-4, 25878-4, 228-8 #### [facility] CLIA [id number] [address] [place] [address] STATES OF AMERICACNPNon [id number] Telephone (INDIA) HARMAN MCLEOD ([id number]) 1940 F Date Time Provider Department 10/04/24 [...] that he practices out of the [facility] location. I made her aware that I will send a message and she is to expect a call. Patient and daughter agree with plan and appreciate the time. Maylin Sandoval, RN Evita Deshpande RN 10/04/2024 12:51 PM Signed Per 06/20/23 [facility] oncology: pt is to return in about 4 months (around 10/21/2023) for MD miquel visit. 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 Cut in half - Fhfwx-9-BBA-EPA-Fish Oil 1,000 mg (120 mg-180 mg) cap Take 2 g by mouth twice daily. - isosorbide mononitrate ER (IMDUR) 60 mg 24 hr tablet Take 60 mg by mouth twice daily. Problem List As Of Date 10/04/2024 Noted Resolved Hypertension [I10] DM type 2 (diabetes mellitus, type 2) ([facility]) [E1* Essential hypertension [I10] 01/16/2017 Type 2 diabetes mellitus without complication, *01/16/2017 Hypothyroidism [E03.9] 01/16/2017 Dyslipidemia [E78.5] 01/16/2017 Atherosclerosis of [place] coronary artery of na*01/16/2017 S/P coronary artery stent placement [Z (more content not included)...Normal [facility] NorthFoow-Upon 84-82-6854Lkrnum-[id number] Harman Mcleod 1940 Provider Department Center 09/24/2024 BRIAN FLANNERY [facility] Family History Problem Relation Age of Onset Stroke Mother Coronary artery disease Father Heart attack Father Family Status - Relation Status Age at Mother Father Level of Service:56965 [place] OFFICE/OUTPATIENT ESTABLISHED LOW MDM 20 MINNoCleveland Clinic Hillcrest HospitalFoow-Upon 06-49-5538Nwaxtq-[id number] Harman Mcleod 1940 Provider Department Center 09/12/2024 BRIAN FLANNERY [facility] [place] [facility] Family History Problem Relation Age of Onset Stroke Mother Coronary artery disease Father Heart attack Father Family Status - Relation Status Age at Mother Father Level of Service:02976 [place] OFFICE/OUTPATIENT ESTABLISHED LOW MDM 20 MIN Reason for Visit and Comments: Follow-up [760690] - Wound checkNormalUniversOhio Valley Surgical HospitalOffice Visiton 28-14-5039Qvtfuh-up [id number] Harman Mcleod 1940 Provider Department Center 09/02/2024 BRIAN FLANNERY [facility] [place] [facility] Family History Problem Relation Age of Onset Stroke Mother Coronary artery disease Father Heart attack Father Family Status - Relation Status Age at Mother Father Level of Service:95893 [place] OFFICE/OUTPATIENT ESTABLISHED SF MDM 10 MINNormal [facility] CenterOffice Visiton 40-74-8970Oudmza-up visit [id number] Harman Mcleod 1940 F Date Provider Department Center 08/27/2024 BRIAN FLANNERY [facility] Family History Problem Relation Age of Onset Stroke Mother Coronary artery disease Father Heart attack Father Family Status - Relation Status Age at Mother Father Level of Service:98106 [place] OFFICE/OUTPATIENT ESTABLISHED LOW MDM 20 [facility] HospitalHPon 98-46-7411NSXH Electrophysiology Consult Note [place] Card[facility] Reason for visit: Afib 08/12/24 Pt had PET FOOD DEBONER on 07/10/24 and now presents for AVN [...] in A-fib. She was just discharged from [facility] for GI bleed. Eliquis and aspirin have [...] disease) Cancer (CMS/HCC) CHF (congestive heart failure) ([facility]) Chronic kidney disease COPD (chronic obstructive pulmonary disease) ([facility]) Diabetes mellitus ([facility]) GI bleed Heart murmur Hyperlipidemia Hypertension PVD (peripheral vascular disease) ([facility]) PSH: Past Surgical History: Procedure Laterality Date CARDIAC CATHETERIZATION 12/15/2011, 08/23/2010, 12/30/2004, CORONARY STENT PLACEMENT HYSTERECTOMY 03/11/2005 VASCULAR SURGERY SH: Social Determinants of Health Tobacco Use: Medium Risk (06/20/2024) [facility], [facility] Patient History Smoking Tobacco Use: Former Smokeless Tobacco Use: Never Passive Exposure: Not on file Alcohol Use: Not on file Financial Resource Strain: Not on file Food Insecurity: Not on file Transportation Needs: Not on file Physical Activity: Not on file Stress: Not on file Social Connections: Not on file Intimate Partner Violence: Unknown (11/02/2023) [place] Safety & Environment Fear of Current or Ex-Partner: Not on file Emotionally Abused: Not on file Physically Abused: Not on file Sexually Abused: Not on file Physically or Sexually Abused: Not on file Depression: Not at risk (02/14/2023) Received from [facility] PHQ-2 PHQ-2 score: 0 Housing Stability: [...] mouth two times daily. fish oil concentrate ([place]-3) 120-180 mg capsule Take 1,000 mg by [...] mcg by mouth in (more content not included)...[facility] Medical CenterNURSNOTEon 08-12-2024 NURSNOTERN educated pt on d/c instructions. [...] wheeled off of unit with all of belongings.NormalFort Hamilton HospitalConsultation Noteon 48-34-1197Bdbgfwiremgw Note [id number]#1.00TIFFNormalFisher Holy Cross HospitalVaginitis DNA Probeon 97-66-0178EizimhgSsfcvuudBibowiNYKPcosd St. Vincent Medical CenterComment on above:Result Comment: for Manjula sp. Method of testing is a DNA probe intended for detection and identification of Manjula species, Gardnerella vaginalis, and Trichomonas vaginalis nucleic acid in vaginal fluid specimens from patients with symptoms of vaginitis/vaginosis. Performed By: #### VAGP #### [address] [id number] Contract Clerk [employer]: Estephanie SmithllaNegativeNormalMercy Health Springfield Regional Medical CenterComment on above:Result Comment: for Gardnerella vaginalis Performed By: #### VAGP #### [address] [address] Contract Clerk Automobile: Sanaz SmithhomonasNegativeCleveland ClinicComment on above:Result Comment: for Trichomonas Vaginalis Performed By: #### VAGP #### [facility] [employer] [address] [place] [address] Contract Clerk Automobile: Shaheen Smith.VAGINAL SWABParkview HealthComment on above:Performed By: #### VAGP #### [address] [id number] Contract Clerk Automobile: Fidel Hylton MDOPERATIVE REPORTon 48-23-7141QHFKLKLZW REPORT [address] [address] OPERATIVE REPORT PATIENT NAME: HARMAN MCLEOD : 1940 MED REC NO: [id number] ROOM: ACCOUNT NO: [id number] ADMIT DATE: 03/06/2023 PROVIDER: Emma Garza MD DATE OF PROCEDURE: 03/06/2023 PREOPERATIVE DIAGNOSIS: Recurrent vaginal dysplasia. POSTOPERATIVE DIAGNOSIS: Recurrent vaginal dysplasia. OPERATION PERFORMED: Examination under anesthesia, carbon dioxide laser vaporization of vaginal dysplasia. COMPLICATIONS: None. BLOOD LOSS: Minimal. SURGEON: Emma Garza MD CREEL HAND: Mauri (resident). DISPOSITION: The patient to recovery room stable. SPECIMENS: No specimen sent to Pathology. OPERATIVE FINDINGS: The patient had a small 1-2 cm area of hjvhduct-bg-oifwse dysplasia along the anterior vagina from 12 [...] entire procedure. EMMA GARZA MD CL/S_[email or web address] Doc#: [id number] CC:NormalMount St. Mary HospitalConsultation Noteon 02-19-2023 Consultation [id number]#1.00CD:127[facility] Hospital SouthConsultation Noteon 82-21-6517Lsckqjpbbnke Note [id number]#1.00CD:127[facility] Hospital SouthComment on above:Other Comment: MISSING PAGES CRRCULTURE URINEon 46-20-9023MHCLAIW URINECulture Observations: VERY LIGHT GROWTH OF MIXED GENITAL SAGE. NO POTENTIAL PATHOGENS SEEN.NormalThe Metrohealth SystemComment on above:Performed By: #### URCX ####[facility] [address] [place], [place] [address]DhMedardo Omid Mir RANDOM W/MICROSCOPICon 20-14-4191TLOKMWNAUUQKOOdzwunvyYFDS SEENThe [facility] Comment on above:Performed By: #### HGB #### [facility] [address] [address] [address] Omid BowdenBilirubin Ql (U)NegativeNormalNEGATIVEThe [facility] Comment on above:Performed By: #### HGB #### [facility] [address] [address] [address] Omid BowdenCASTNONE SEENNormalNONE SEENThe Metrohealth SystemComment on above:Performed By: #### HGB #### [facility] [address] [address] [address] Omid Sheaarity (U)CLEARNormalCLEARThe Metrohealth SystemComment on above: Performed By: #### HGB #### [facility] [address] [place] [address] Dr. Omid Serranolor (U)LT. YELLOWNormalYELLOWThe Metrohealth SystemComment on above:Performed By: #### HGB #### [facility] [address] [place] [address] Dr. Omid BowdenCrystals LM Nom (Urine sed)NONE SEENNormalNONE SEENThe Metrohealth SystemComment on above:Performed By: #### HGB #### [facility] [address] [place] [address] Dr. Anne ChangEpithelial cells LM Ql (Urine sed)RARENormalNONE SEEN /RAREThe Metrohealth SystemComment on above:Performed By: #### HGB #### [facility] [address] [place] [address] Dr. Omid BowdenGlucose Ql (U)NegativeNormalNEGATIVEThe Metrohealth SystemComment on above:Performed By: #### HGB #### [facility] [address] [address] [address] Omid BowdenHemoglobin Ql (U)NegativeNormalNEGATIVEThe [facility] Comment on above:Performed By: #### HGB #### [facility] [address] [place] [address] Dr. Omid BowdenKetones Ql (U)NegativeNormalNEGATIVEThe Metrohealth SystemComment on above:Performed By: #### HGB #### [facility] [address] [address] [address] Omid BowdenLEUKOCYTESSMALLAbnormalNEGATIVEThe [facility] ToledoComment on above:Performed By: #### HGB #### [facility] [address] [place] [address] Dr. Omid BowdenMUCOUSDARIEN SEENNormalNONE SEENThe [facility] SystemComment on above:Performed By: #### HGB #### [facility] [address] [place] [address] Dr. Omid BowdenNitrite Ql (U)NegativeNormalNEGATIVEThe [facility] ToledoComment on above:Performed By: #### HGB #### [facility] [address] [place] [address] Dr. Omid BowdenpH (U)6.0 [pH]Normal5-9The [facility] ToledoComment on above: Performed By: #### HGB #### [facility] [address] [place] [address] Dr. Omid BowdenWtxfmOHY9-6Ewgtfl6-1Auv [facility] ToledoComment on above:Performed By: #### HGB #### [facility] [address] [place] [address] Dr. Omid BowdenSPEC GRAVITY<=1.337Ylgblxgs1.005-<=1.025[facility] Comment on above:Performed By: #### HGB #### [facility] [address] [place] [address] Dr. Omid Mir PROTEINNegativeNormalNEGATIVE/ TRACEThe [facility] Comment on above:Performed By: #### HGB #### [facility] [address] [place] [address] Dr. Omid Daybilinogen Qn (U)0.2 {Jose'U}/dLNormal0.2 - 1.0The [facility] ToledoComment on above:Performed By: #### HGB #### [facility] [address] [place] [address] Dr. Omid BowdenWBC0-2AbnormalNONE [facility] HospitalComment on above: Performed By: #### HGB #### [facility] [address] [place], [place] [address] Dr. Omid BowdenCreatinine [Mass/volume] in Serum or PlasmaOrdered By: Christiano Gonzales on 17-75-8008Mxowlcprps [Mass/Vol]1.37 mg/dL0.60-1.20[facility] HospitalLaboratory - Chemistry and Chemistry - challengeOrdered By: Christiano Gonzales on 80-75-8805CXW/1.73 sq M.predicted MDRD (S/P/Bld) [Vol rate/Area]39.034 mL/min/{1.73_m2}[facility] HospitalNo Panel InformationOrdered By: Christiano Gonzales on 65-82-3564Aejpzxjx Creatinine Clearance (Chem31.71[facility] City HospitalUrea nitrogen [Mass/volume] in Serum or PlasmaOrdered By: Christiano Gonzales on 74-92-1537Qplb nitrogen [Mass/Vol]35 mg/dL7-25[facility] Hospitalurgical Pathologyon 98-03-2823Hbulfxjz Pathology(NOTE) -- Diagnosis -- VAGINA, 12:00, BIOPSY: [...] SURGICAL PATHOLOGY CONSULTATION Patient Name: HARMAN MCLEOD [facility] Rec: [id number] Path Number: [id number] [facility] CONS[facility] PATHOLOG[facility] [address] [place] [id number] NoAultman HospitalComment on above: Performed By: #### PPPVS #### [employer] [address] [place] [id number] Contract Clerk Automobile: Fidel Hylton [facility]l Cancer Centerulatory Visit Summaryon 73-05-3332Poojiqpyzg Visit Summary HARMAN MCLEOD :1940 Visit Date:11/22/2022 [...] and diastolic (congestive) heart failure Atherosclerosis of [place] artery of extremity BMI 36.0-36.9,adult Brain stem [...] Rectal bleeding Stage 2 chronic kidney disease [facility] Surgery Office/Clinic Noteon 47-55-1265Pwpbzqi Surgery Office/Clinic NoteChief Complaint post operative follow [...] Jose Only if needed [address] [place] [address]- Additional Instructions: Problem List/Past Medical History Ongoing Acute combined systolic (congestive) and diastolic (congestive) heart failure Atherosclerosis of [place] artery of extremity BMI 36.0-36.9,adult Brain stem [...] Cigarettes, 0.5 per d (more content not included)...[facility] SouthComment on above:Result Comment: Electronically Signed By: CHELSI CARDONA, Iliana Alvarez\Date and Time Signed: 11/22/22 15:17 EDTCovid-19 PCR ([facility]) on 36-01-1525JGXO-CoV-2 (COVID-19) RNA MARII+probe Ql (Unsp spec)Not detected NormalNOT DETECTEDThe [facility]edoComment on above:Result Comment: When diagnostic testing is [...] for this test is supported by the [place] of Health and Human Service's declaration that [...] longer be used).Performed By: #### HGB #### [facility] [address] [address] [address] Omid Nair AND B AGon 14-33-6243WXJZEWYTYQOFEOhio State Harding Hospitalment on above:Result Comment: Negative for Flu A protein angiten. Infection due to Flu A cannot be ruled out. FluA angiten in the sample may be below the detection limit of the test.Performed By: #### INFLUAB ####[facility] [address] [address]Dr. Omid BowdenINFLUBNEGHSEE [facility] [place] Regional HospitalComment on above:Result Comment: Negative for Flu B protein antigen. Infection due to Flu B cannot be ruled out. FluB antigen in the sample may be below the detection limit of the test.Performed By: #### INFLUAB ####[facility] [address] [address]Dr. Omid Rodarte A AGNegativeNormalNEGATIVE SEE COMMENTThe [facility] ToledoComment on above:Performed By: #### INFLUAB ####[facility] [address] [place], [place] [address]Dr. Omid Rodarte B AGNegativeNormalNEGATIVE SEE COMMENTThe [facility] Comment on above:Performed By: #### INFLUAB ####[facility] [address] [place], [place] [address]Dr. Omid BowdenAmbulatory Visit Summaryon 88-04-6784Ptqsxhibak Visit Summary HARMAN MCLEOD :1940 Visit Date:11/08/2022 [...] and diastolic (congestive) heart failure Atherosclerosis of [place] artery of extremity BMI 36.0-36.9,adult Brain stem [...] Rectal bleeding Stage 2 chronic kidney disease [facility] Surgery Office/Clinic Noteon 36-36-4305Orkvhtp Surgery Office/Clinic NoteChief Complaint post operative follow [...] and diastolic (congestive) heart failure Atherosclerosis of [place] artery of extremity BMI 36.0-36.9,adult Brain stem [...] 09/09/2022 Family History Tran (more content not included)...[facility] SouthComment on above:Result Comment: Electronically Signed By: CHELSI CARDONA, Iliana Ramirez\.br\Date and Time Signed: 11/08/22 14:22 ESTAmbulatory Visit Summaryon 64-43-6818Silgsfuhou Visit Summary HARMAN MCLEOD :1940 Visit Date:11/04/2022 [...] Ramirez Where: General Surgery Chel[facility] General Surgery Office/Clinic Noteon 15-85-2532Pvuqinj Surgery Office/Clinic NoteChief Complaint bleeding from incision [...] and diastolic (congestive) heart failure Atherosclerosis of [place] artery of extremity BMI 36.0-36.9,adult Brain stem [...] Years., 09/09/2022 Family Histor (more content not included)...[facility] Comment on above:Result Comment: Electronically Signed By: CHELSI CARDONA, lIiana Castillo.veto\Date and Time Signed: 11/04/22 14:35 ESTUS HARRIET DOP LEG BILon 79-79-0261YW HARRIET DOP LEG BILEXAM: US HARRIET DOP [...] Electronically authenticated by: MIGUELITO TELLEZ Date: 2022-11-02 17:17[facility] CenterPathology Noteon 09-88-3555Bbpwmiglz Note [id number]#1.00CD:127[facility] SouthAmbulatory Visit Summaryon 72-39-8139Zpgztepjfz Visit Summary HARMAN MCLEOD :1940 Visit Date:10/25/2022 [...] MD Where: General Surgery Nilnikolai[facility] General Surgery Office/Clinic Noteon 81-11-1082Xqylvts Surgery Office/Clinic NoteChief Complaint post operative follow [...] and diastolic (congestive) heart failure Atherosclerosis of [place] artery of extremity BMI 36.0-36.9,adult Brain stem [...] Mother. Heart disease: Mo (more content not included)...[facility] SouthComment on above:Result Comment: Electronically Signed By: CHELSI CARDONA, Iliana Alvarez\Date and Time Signed: 10/25/22 16:13 ESTOperative Reporton 59-24-6751Ovlheqbvh [id number]#1.00CD:127 [facility] SouthRAD - Ultrasound Reporton 56-92-0438MDD - Ultrasound [id number]#1.00CD:127[facility] SouthNM SENTNL NODEon 07-98-9827WW SENTNL NODEPROMEDICA [facility] MEDICINE LYMPHOSCINTIGRAPHY. HISTORY: Infiltrating duct carcinoma [...] Electronically authenticated by: KRISTIN JAQUEZ Date: 2022-10-19 10:41[facility] GLUCOSEon 40-95-2419Ewyhmtx [Mass/Vol]153 mg/dL Critically vfel15-019Wxw [facility]edoComment on above:Performed By: #### POCGLUC #### [facility] [address] [place] [address] Dr. Omid BowdenRAD - MISCon 31-00-0251PLB - MISC [id number]#1.00CD:127[facility] SouthRAD - [id number]#1.00CD:127[facility] SouthRAD - Ultrasound Reporton 62-36-1286GBN - Ultrasound Report [id number]#1.00CD:[address] [place], [place] [address]RAD - Ultrasound [id number]#1.00CD:127 [facility] SouthUS BREAST SPECIMENon 24-32-1324ML BREAST SPECIMENPatient: HARMAN MCLEOD Exam Date: 10/19/2022 : 1940 Gender:F Ordering : DR ILIANA GAGNON . Admission #: [id number] Family : Order #: [id number] CLICK HERE TO VIEW EXAM RADIOLOGY REPORT PROCEDURE: US BREAST SPECIMEN COMPARISON: None. INDICATIONS: Specimen from breast FINDINGS: Breast specimen demonstrates inclusion of the targeted mass as well as the micro clip marker CONCLUSION: Targeted mass and micro clip marker included within the specimen Dictated by: Judson Bauman MD on 10/19/2022 at 11:46 Approved by: Judson Bauman MD on 10/19/2022 at 11:47[facility] Medical CenterUS GUIDE LOCAL BREAST RTon 77-31-7516ST GUIDE LOCAL BREAST RTPatient: HARMAN MCLEOD Exam Date: 10/19/2022 : 1940 Gender:F Ordering : DR ILIANA GAGNON . Admission #: [id number] Family : Order #: [id number] CLICK HERE TO VIEW EXAM RADIOLOGY REPORT [...] clip marker LOCATION: Right breast 9 NEEDLE: [employer]sandeeps spring hook; 20 g by 5 cm needle and wire. MEDICATION: 6 cubic cm Superficial and deep buffered 1% lidocaine. COMPLICATIONS: None. CONCLUSION: Technically successful hookwire localization. Dictated by: Judson Bauman MD on 10/19/2022 at 09:04 Approved by: Judson Bauman MD on 10/19/2022 at 09:05[facility] SENTINEL NODEon 74-09-0074TD SENTINEL NODEEXAM: US SENTINEL NODE HISTORY: Infiltrating duct carcinoma COMPARISON: None. TECHNIQUE: Grayscale and color ultrasound FINDINGS: Grayscale and color ultrasound demonstrates a 1.6 x 0.8 cm lobular heterogeneous hypoechogenic mass at the 9:00 position. Associated microclip marker from prior biopsy IMPRESSION: Localization of a 1.6 cm right breast mass Electronically authenticated by: JUDSON BAUMAN Date: 2022-10-19 08:59NoHolzer Health SystemRAD - MISCon 80-61-9149SIW - [facility] [id number]#1.00CD:127[facility] AUTO DIFFon 06-67-8324FYMP #0.0 103/ulNormal0.0-0.1The Metrohealth SystemComment on above:Performed By: #### HGB #### [facility] [address] [place] [address] Dr. Omid Gonzalezphils/100 WBC (Bld)0.2 %Normal0.2-2.0[facility] Comment on above:Performed By: #### HGB #### [facility] [address] [place] [address] Dr. Omid Maldonado #0.0 103/ulNormal0.0-0.7The [facility] ToledoComment on above: Performed By: #### HGB #### [facility] [address] [place] [address] Dr. Omid Batesosinophils/100 WBC (Bld)0.3 %Critically low0.9-7.0The [facility] ToledoComment on above:Performed By: #### HGB #### [facility] [address] [place] [address] Dr. Omid Batesrythrocyte distribution width (RBC) [Ratio]13.7 %Mzrfeo28.0-15.0 The [facility] Hospital ToledoComment on above:Performed By: #### HGB #### [facility] [address] [place] [address] Dr. Omid BowdenHematocrit (Bld) [Volume fraction]39.6 %Pihmxu94.0-48.0The [facility] ToledoComment on above:Performed By: #### HGB #### [facility] [address] [place] [address] Dr. Omid BowdenHemoglobin (Bld) [Mass/Vol]12.3 g/lYJwjuys73.0-16.0The [facility] ToledoComment on above:Performed By: #### HGB #### [facility] [address] [place] [address] Dr. Omid Aceves #0.06 10e3/ulCritically high0.00-0.03The [facility] Comment on above:Performed By: #### HGB #### [facility] [address] [place] [address] Dr. Omid BowdenIG %0.5 %Normal0.0-0.5The [facility] ToledoComment on above: Performed By: #### HGB #### [facility] [address] [place] [address] Dr. Omid WangMPH #2.9 103/ulNormal1.2-3.8The [facility] ToledoComment on above:Performed By: #### HGB #### [facility] [address] [place] [address] Dr. Omid Wangmphocytes/100 WBC (Bld)26.2 %Cktfgg18.5-60.0The [facility] ToledoComment on above:Performed By: #### HGB #### [facility] [address] [place] [address] Dr. Omid Ogden DIFF REQNONormalThe [facility] ToledoComment on above: Performed By: #### HGB #### [facility] [address] [place] [address] Dr. Omid Hodgson (RBC) [Entitic mass]28.3 ulZwrtdq99.7-34.0The [facility] ToledoComment on above:Performed By: #### HGB #### [facility] [address] [place] [address] Dr. Omid Hodgson (RBC) [Mass/Vol]31.1 g/sDVncjmf93.9-35.2The [facility] ToledoComment on above:Performed By: #### HGB #### [facility] [address] [place] [address] Dr. Omid Hodgson (RBC) [Entitic vol]91.2 qMCxvyof29.0-99.0The [facility] ToledoComment on above:Performed By: #### HGB #### [facility] [address] [place] [address] Dr. Omid Kaur #0.9 103/ulCritically high0.3-0.8ThWhite Hospital Comment on above:Performed By: #### HGB #### [facility] [address] [place] [address] Dr. Omid Marquezocytes/100 WBC (Bld)8.3 %Normal1.7-12.0[facility] Comment on above:Performed By: #### HGB #### [facility] [address] [place] [address] Dr. Omid Moreno #7.0 103/ulCritically high1.4-6.5ThWhite Hospital Comment on above:Performed By: #### HGB #### [facility] [address] [place] [address] Dr. Omid Rizzoutrophils/100 WBC (Bld)64.5 %Pffnfq31.0-75.0The [facility] HospitalComment on above:Performed By: #### HGB #### [facility] [address] [address] [address] Omid Mcdonaldlet mean volume (Bld) [Entitic vol]9.2 fLCritically low 9.5-13.5The [facility] ToledoComment on above:Performed By: #### HGB #### [facility] [address] [place] [address] Dr. Omid BowdenPLT346 103/yaIkabfa389-809Igf [facility] ToledoComment on above: Performed By: #### HGB #### [facility] [address] [place] [address] Dr. Omid BowdenRBC4.34 106/ulNormal4.20-5.40The [facility] ToledoComment on above:Performed By: #### HGB #### [facility] [address] [place] [address] Dr. Omid BowdenWBC10.9 103/ulNormal4.0-11.0The [facility] ToledoComment on above:Performed By: #### HGB #### [facility] [address] [place] [address] Dr. Omid BowdenPROF CHEM 8 (BAS METB)on 31-79-3987Ktadn gap [Moles/Vol]11.0 mmol/LNormalThe [facility] ToledoComment on above:Performed By: #### LIPID, BMP #### [facility] [address] [place] [address] Dr. Omid BowdenCalcium [Mass/Vol]9.6 mg/dLNormal8.5-10.1The [facility] Comment on above:Performed By: #### LIPID, BMP #### [facility] [address] [place] [address] Dr. Omid BowdenChloride [Moles/Vol]99 mmol/FQnwgsf96-784HpkThe [facility] Comment on above:Performed By: #### LIPID, BMP #### [facility] [address] [place] [address] Dr. Omid BowdenCO2 [Moles/Vol]32.0 mmol/VStmzrv60.0-32.0The [facility] Comment on above:Performed By: #### LIPID, BMP #### [facility] [address] [place] [address] Dr. Omid BowdenCreatinine [Mass/Vol]1.03 mg/dLCritically high0.55-1.02The [facility] ToledoComment on above:Performed By: #### LIPID, BMP #### [facility] [address] [address] [address] Omid BatesGFR-AF CROATIAN>60Normal>=60The [facility] ToledoComment on above:Performed By: #### LIPID, BMP #### [facility] [address] [place] [address] Dr. Omid BatesGFR-NON AF ITHWVWPZ71 mL/min/1.02s2Yvadyfaobz low>=60The [facility] ToledoComment on above:Performed By: #### LIPID, BMP #### [facility] [address] [place] [address] Dr. Omid BowdenGlucose [Mass/Vol]94 mg/zBKswchf06-847AzsThe [facility] Comment on above:Performed By: #### LIPID, BMP #### [facility] [address] [place] [address] Dr. Omid BowdenPotassium [Moles/Vol]4.0 mmol/LNormal3.5-5.1The [facility] Comment on above:Performed By: #### LIPID, BMP #### [facility] [address] [place] [address] Dr. Omid BowdenSodium [Moles/Vol]138 mmol/MXsnjte083-131Fem [facility] Comment on above:Performed By: #### LIPID, BMP #### [facility] [address] [place] [address] Dr. Omid BowdenUrea nitrogen [Mass/Vol]28.0 mg/dLCritically high7.0-18.0The [facility] ToledoComment on above:Performed By: #### LIPID, BMP #### [facility] [address] [place] [address] Dr. Omid BowdenUrea nitrogen/Creatinine [Mass ratio]27.2 mg/mgNoHolzer Health SystemComment on above:Performed By: #### LIPID, BMP #### [facility] [address] [place] [address] Dr. Omid BowdenPROTIMEon 88-15-3624RJC Coag (PPP) [Relative time]0.99 {INR} NormalThe [facility] ToledoComment on above:Performed By: #### HGB #### [facility] [address] [place] [address] Dr. Omid Damon GUIDELINESSEE BELOWUniversity Hospitals Conneaut Medical CenterComment on above:Result Comment: DESIRED INR: 2.0 - 3.0 CONDITIONS NOT LISTED BELOW 2.5 - 3.5 FOR PROSTHETIC HEART VALVE REPLACEMENT 2.5 - 3.5 RECURRENT THROMBOSIS Performed By: #### HGB #### [facility] [address] [place] [address] Dr. Omid BowdenPT Coag (PPP) [Time]10.5 sNormal9.0-11.6ThWhite Hospital Comment on above:Performed By: #### HGB #### [facility] [address] [place] [address] Dr. Omid Vera 56-98-3962mZIK Coag (Bld) [Time]28.6 zAckimp79.3-36.2The Metro[facility] SystemComment on above:Performed By: #### HGB #### [facility] [address] [place] [address] Dr. Omid BowdenConsultation Noteon 53-34-6277Atfjkcyrbssx Note [id number]#1.00CD:127[facility] SouthINSULINon 01-37-8380Fjuxqva13.8 uIU/mLNormal2.6-24.9[facility] Comment on above:Performed By: #### LIPID, BMP #### [facility] [address] [place] [address] Dr. Omid BowdenGLYCOHEMOGLOBIN A1Con 25-20-1368TML RECOMMENDATIONSEE BELOWNormal The [facility] ToledoComment on above:Result Comment: ADA RECOMMENDED LIMIT 4.0 - 6.0 ADA THERAPEUTIC TARGET < 7.0 ACTION SUGGESTED > 7.0Performed By: #### HGB #### [facility] [address] [address] [address] Omid BowdenGlucose [Mass/Vol]177 mg/dLNormalThe [facility] ToledoComment on above:Performed By: #### HGB #### [facility] [address] [address] [address] Omid BowdenHbA1c (Bld) [Mass fraction]7.8 %Critically high4.5-6.2The [facility] ToledoComment on above:Performed By: #### HGB #### [facility] [address] [address] [address] Omid BowdenPROF 14(COMP METB)on 28-15-3149Zvsrrjm [Mass/Vol]3.0 g/dL Critically low3.4-5.0The [facility] ToledoComment on above:Performed By: #### CMP ####[facility] [address] [address]Dr. Omid BowdenAlbumin/Globulin [Mass ratio]0.7 {ratio}NormalThe [facility] Comment on above:Performed By: #### CMP ####[facility] [address] [address]Dr.Omid BowdenALP [Catalytic activity/Vol]73 U/LYrfiis25-218Kzq [facility] ToledoComment on above:Performed By: #### CMP ####[facility] [address] [address]Dr. Omid BowdenALT [Catalytic activity/Vol]16 U/PXguxch56-29Zmb [facility] Comment on above:Performed By: #### CMP ####[facility] [address] [address]Dr.Omid BowdenAnion gap [Moles/Vol]11.3 mmol/LNormalThe [facility] ToledoComment on above:Performed By: #### CMP ####[facility] [address] [address]Dr. Yilan ChangAST [Catalytic activity/Vol]14 U/LCritically odd82-30Era [facility] ToledoComment on above:Performed By: #### CMP ####[facility] [address] [place], [place] [address]Dr.Yilan ChangBilirubin [Mass/Vol]0.3 mg/dLNormal0.2-1.0The [facility] ToledoComment on above:Performed By: #### CMP ####[facility] [address] [place], [place] [address]Dr.Yilan ChangCalcium [Mass/Vol]9.5 mg/dLNormal8.5-10.1The [facility] ToledoComment on above:Performed By: #### CMP ####[facility] [address] [place], [place] [address]Dr.Yilan ChangChloride [Moles/Vol]102 mmol/QGarezh21-025Nuy [facility] ToledoComment on above:Performed By: #### CMP ####[facility] [address] [place], [place] [address]Dr.Yilan ChangCO2 [Moles/Vol]31.1 mmol/NYyxcqv94.0-32.0[facility]Com[facility] healthcare on above:Performed By: #### CMP ####[facility] Btqnboyoiv[address] [place], [place] [address]Dr.Yilan ChangCreatinine [Mass/Vol]1.28 mg/dLCritically high0.55-1.02The [facility] ToledoComment on above:Performed By: #### CMP ####[facility] Skewlgkwmb[address] [place], [place] [address]Dr.Yilan ChangEGFR-AF VWQUFNRF31 mL/min/1.73m2 Critically low>=60The [facility] ToledoComment on above:Performed By: #### CMP ####[facility] Jxezyzesyp[address] [place], [place] [address]Dr. Yilan ChangEGFR-NON AF BKGTEWYK26 mL/min/1.49p0Yyupnjnxyi low>=60The [facility] ToledoComment on above:Performed By: #### CMP ####[facility] [address] [place] [address]Dr.Yilan ChangGlobulin (S) [Mass/Vol]4.4 g/dLNormalThWhite HospitalComment on above:Performed By: #### CMP ####[facility] Mvdurgkfhu[address] [place], [place] [address]Dr.Yilan ChangGlucose [Mass/Vol]103 mg/cHNzcuog34-650Keo [facility] Comment on above:Performed By: #### CMP ####[facility] Xtjawiaxen[address] [place], [place] [address]Dr.Yilan ChangPotassium [Moles/Vol]4.4 mmol/LNormal3.5-5.1The [facility] ToledoComment on above:Performed By: #### CMP ####[facility] Fmsbrbsvwh[address] [place], [place] [address]Dr. Yilan ChangProtein [Mass/Vol]7.4 g/dLNormal6.4-8.2The [facility] ToledoComment on above:Performed By: #### CMP ####[facility] Ketjtcvwkr18[address] [place], [place] [address]Dr.Yilan ChangSodium [Moles/Vol]140 mmol/LNormal 136-145The [facility] ToledoComment on above:Performed By: #### CMP ####[facility] Krxfyvlign[address] [place], [place] [address]Dr.Yilan ChangUrea nitrogen [Mass/Vol]27.0 mg/dLCritically high7.0-18.0The [facility] ToledoComment on above:Performed By: #### CMP ####[facility] Xrssmcuusz[address] [place], [place] [address]Dr.Yilan ChangUrea nitrogen/Creatinine [Mass ratio] 21.1 mg/mgNoHolzer Health SystemCommemorial healthcare on above:Performed By: #### CMP ####[facility] Odiujiciry[address] [place], [place] [address]Dr. Aixalan ChangFormson 05-16-3667Yljbj [id number]#1.00CD:127NoMer[facility] [address] Rita's Medical CenterConsent for Procedure/Surgeryon 46-20-9221Jmlkmxh for Procedure/Surgery [id number]#1.00CD:127No[address] Rita's Medical CenterConsultation Noteon 05-84-7681Ihrmtjlgdszr Note [id number]#1.00CD:127NormOhioHealth Riverside Methodist HospitalConsultation Noteon 93-77-5856Peywlnohmrvn Note [id number]#1.00CD:127[facility] SouthCovid-19 PCR (CVDTB)on 63-15-6479SRAE-CoV-2 (COVID-19) RNA MARII+probe Ql (Unsp spec)Not detectedNormalNOT DETECTEDThe [facility] Hospital ToledoComment on above: Result Comment: When diagnostic testing [...] for this test is supported by the [place] of Health and Human Service's declaration that [...] no longer be used).Performed By: #### CVDTBH ####[facility] [address]mezosmf[address] [place], [place] [address]UpMedardo WhyteUENZA A AND B AGon 51-34-4395CFOIETSQDTFAS BELOWNormal The [facility] ToledoComment on above:Result Comment: Negative for Flu A protein angiten. Infection due to Flu A cannot be ruled out. FluA angiten in the sample may be below the detection limit of the test.Performed By: #### INFLUAB ####[facility] [address]ouk[address] [place] [address]Dr. Omid ChangINFLUBNEGHSEE [facility] [place] Regional HospitalComment on above:Result Comment: Negative for Flu B protein antigen. Infection due to Flu B cannot be ruled out. FluB antigen in the sample may be below the detection limit of the test.Performed By: #### INFLUAB ####[facility] [address]aw[address] [place] [address]Dr. Omid ChangINFLUENZA A AGNegativeNormalNEGATIVE SEE COMMENTThe [facility] Hospital ToledoComment on above:Performed By: #### INFLUAB ####[facility] Hxfjbftbdp[address] [place], [place] [address]Dr. Omid ChangINFLUENZA B AGNegativeNormalNEGATIVE SEE COMMENTThe [facility] Comment on above:Performed By: #### INFLUAB ####[facility] Igrtvvjpmz[address] [place], [place] [address]Dr. Omid BowdenLIPID PROFILEon 09-16-2022 CHOL-HDL RATIO NORMSEE [facility] [place] [facility] HospitalComment on above:Result Comment: 3.3 - 4.4 LOW RISK 4.4 - 7.1 AVERAGE RISK 7.1 - 11.0 MODERATE RISK >11.0 HIGH RISKPerformed By: #### LIPID, BMP #### [facility] [address] [place] [address] Dr. Omid BowdenCholesterol [Mass/Vol]210 mg/dLCritically high<=200The [facility] ToledoComment on above:Performed By: #### LIPID, BMP #### [facility] [address] [place] [address] Dr. Omid BowdenCholesterol in HDL [Mass/Vol]49 mg/pTZzjfxt21-44Xqj [facility] ToledoComment on above:Performed By: #### LIPID, BMP #### [facility] [address] [place] [address] [address] Omid BowdenCholesterol in LDL [Mass/Vol]84.2 mg/dLUniversity Hospitals Conneaut Medical CenterComment on above:Performed By: #### LIPID, BMP #### [facility] [address] [place] [address] Dr. Omid Greeresterol.total/Cholesterol in HDL [Mass ratio]4.3 {ratio} NormalThe [facility] Hospital ToledoComment on above:Performed By: #### LIPID, BMP #### [facility] [address] [place] [address] Dr. Omid Black NORMAL> or = 60 mg/dl - LOW CARDIOVASCULAR RISK <40 mg/dl - HIGH CARDIOVASCULAR RISKUniversity Hospitals Conneaut Medical CenterCommemorial healthcare on above:Performed By: #### LIPID, BMP #### [facility] [address] [place] [address] Dr. Omid Stewart CALC NORMALSEE BELOWUniversity Hospitals Conneaut Medical CenterComment on above:Result Comment: <100 mg/dl OPTIMAL 100 - 129 mg/dl NEAR OR ABOVE OPTIMAL 130 - 159 mg/dl BORDERLINE HIGH 160 - 189 mg/dl HIGH >190 mg/dl VERY HIGH Performed By: #### LIPID, BMP #### [facility] [address] [place] [address] Dr. Omid BowdenTriglyceride [Mass/Vol]384 mg/dLCritically high<=150[facility] on above:Performed By: #### LIPID, BMP #### [facility] [address] [place] [address] Dr. Omid BowdenVLDL CALC76.8 mg/dLNoHolzer Health SystemComment on above: Performed By: #### LIPID, BMP #### [facility] [address] [place] [address] Dr. Omid BowdenPROF CHEM 8 (BAS METB)on 78-63-2048Lgjru gap [Moles/Vol]10.8 mmol/LNormalThe Metrohealth SystemComment on above:Performed By: #### LIPID, BMP #### [facility] [address] [place] [address] Dr. Omid BowdenCalcium [Mass/Vol]8.8 mg/dLNormal8.5-10.1The [facility] Comment on above:Performed By: #### LIPID, BMP #### [facility] [address] [place] [address] Dr. Omid BowdenChloride [Moles/Vol]98 mmol/QJgysnw42-241Vjk [facility] Comment on above:Performed By: #### LIPID, BMP #### [facility] [address] [place] [address] Dr. Omid BowdenCO2 [Moles/Vol]34.5 mmol/LCritically high21.0-32.0The [facility] ToledoComment on above:Performed By: #### LIPID, BMP #### [facility] [address] [place] [address] Dr. Omid BowdenCreatinine [Mass/Vol]1.17 mg/dLCritically high0.55-1.02The [facility] ToledoComment on above:Performed By: #### LIPID, BMP #### [facility] [address] [place] [address] Dr. Anne ChangEGFR-AF NXUIUZGP36 mL/min/1.31d1Blgvzxnrik low>=60The [facility] ToledoComment on above:Performed By: #### LIPID, BMP #### [facility] [address] [place] [address] Dr. Omid BatesGFR-NON AF EUQWPNGF96 mL/min/1.19t6Ivroidgdei low>=60The [facility] ToledoComment on above:Performed By: #### LIPID, BMP #### [facility] [address] [place] [address] Dr. Omid BowdenGlucose [Mass/Vol]193 mg/dLCritically iepf85-817Qbi [facility] ToledoComment on above:Performed By: #### LIPID, BMP #### [facility] [address] [place] [address] Dr. Omid BowdenPotassium [Moles/Vol]3.3 mmol/LCritically low3.5-5.1The [facility] ToledoComment on above:Performed By: #### LIPID, BMP #### [facility] [address] [place] [address] [address] Omid BowdenSodium [Moles/Vol]140 mmol/PMgjovx325-934Ipw [facility] Comment on above:Performed By: #### LIPID, BMP #### [facility] [address] [place] [address] [address] Omid Lawson nitrogen [Mass/Vol]31.0 mg/dLCritically high7.0-18.0The [facility] ToledoComment on above:Performed By: #### LIPID, BMP #### [facility] [address] [place] [address] [address] Omid Lawson nitrogen/Creatinine [Mass ratio]26.5 mg/mgNoHolzer Health SystemComment on above:Performed By: #### LIPID, BMP #### [facility] [address] [place] [address] [address] Omid BowdenFacesheeton 99-05-2794Rcjslkeue [id number]#1.00CD:[address] [place], [place] [address]Consultation Noteon 70-81-4623Joekqrolzckr Note [id number]#1.00CD:[address] [place] [address] Note-Physicianon 04-07-9837IY Note-Physician [id number]#1.00CD:[address] [place], [place] [address]Lab Reportson 60-04-9422Efy Reports [id number]#1.00CD:[address] [place], [place] [address]Lab [id number]#1.00CD:[address] [place], [place] [address]Physician Referralon 64-42-1321Yvoskcmoo Referral [id number]#1.00CD:127NormalThe Metrohealth SystemC. DIFF PCRon 2C. DIFFICILE PCRNegativeNormalNEGATIVEThe [facility] ToledoComment on above:Performed By: #### CDIFPOC ####[facility] Qpgpzxggru[address] [place], [place] [address]Dr. Omid ChangCBC AUTO DIFF on 19-22-4796LMRF #0.0 103/ulNormal0.0-0.1The [facility] ToledoComment on above: Performed By: #### CBC ####[facility] Dulvllpgyi[address] [place], [place] [address]Dr.Yilan ChangBasophils/100 WBC (Bld)0.3 %Normal 0.2-2.0The [facility] ToledoComment on above:Performed By: #### CBC ####[facility] Fyhyznogwo[address] [place], [place] [address]Dr.Yilan ChangEO # 0.5 103/ulNormal0.0-0.7The [facility] ToledoComment on above:Performed By: #### CBC ####[facility] Nfhiumyetn44[address] [place], [place] [address]Dr. Yilan ChangEosinophils/100 WBC (Bld)3.2 %Normal0.9-7.0The [facility] Comment on above:Performed By: #### CBC ####[facility] Aflaemcegh[address] [place], [place] [address]Dr.Aixalan ChangErythrocyte distribution width (RBC) [Ratio]14.1 %Ydjnxs83.0-15.0The [facility] ToledoComment on above: Performed By: #### CBC ####[facility] Evusdouwzt02[address] [place], [place] [address]Dr.Omid ChangHematocrit (Bld) [Volume fraction]36.1 % Oyzuar69.0-48.0The [facility] ToledoComment on above:Performed By: #### CBC ####[facility] Uvfljluttw[address] [place], [place] [address]Dr. Omid ChangHemoglobin (Bld) [Mass/Vol]11.7 g/dLCritically low12.0-16.0The [facility] ToledoComment on above:Performed By: #### CBC ####[facility] [address] [place] [address]Dr.Omid BwodenIG #0.08 10e3/ulCritically high0.00-0.03The [facility] ToledoComment on above:Performed By: #### CBC ####[facility] [address]foto[address] [place] [address]DrRadha BowdenIG %0.5 %Normal0.0-0.5The [facility] HospitalComment on above: Performed By: #### CBC ####[facility] Fbufospwxj[address] [place], [place] [address]Dr.Omid WangMPH #1.2 103/ulNormal1.2-3.8The [facility] ToledoComment on above:Performed By: #### CBC ####[facility] Qneynykgjy[address] [place], [place] [address]Dr.Omid Wanghocytes/100 WBC (Bld)7.5 %Critically low20.5-60.0The [facility] ToledoComment on above: Performed By: #### CBC ####[facility] Wyhcopwoez39[address] [place], [place] [address]Dr.Omid BowdenMANUAL DIFF REQNONormalThe [facility] Hospital ToledoComment on above:Performed By: #### CBC ####[facility] Uchcjfwvua66[address] [place], [place] [address]Dr.Omid BowdenNYU LANGONE HEALTH (RBC) [Entitic mass]29.2 qnRtssdk35.7-34.0The [facility] ToledoComment on above: Performed By: #### CBC ####[facility] Sfzlbinuvt53[address] [place], [place] [address]Dr.Omid BowdenHC (RBC) [Mass/Vol]32.4 g/dLNormal 29.9-35.2The [facility] ToledoComment on above:Performed By: #### CBC ####[facility] Ehhuqjgfgv[address] [place], [place] [address]Dr. Omid BowdenV (RBC) [Entitic vol]90.0 jTStcwoz53.0-99.0The [facility] Comment on above:Performed By: #### CBC ####[facility] [address]zjwtbcfhj5[address] [place], [place] [address]Dr.Omid MarquezO #1.0 103/ulCritically high0.3-0.8The [facility] ToledoComment on above:Performed By: #### CBC ####[facility] Yakdrpamro[address] [place], [place] [address]Dr. Omid BowdenMonocytes/100 WBC (Bld)6.8 %Normal1.7-12.0[facility] Comment on above:Performed By: #### CBC ####[facility] Nqksrnbhya84[address] [place], [place] [address]DrRadha RizzoUT #12.5 103/ulCritically high1.4-6.5The [facility] ToledoComment on above:Performed By: #### CBC ####[facility] Rbkjmtppoe360[address] [place], [place] [address]Dr. Omid ChangNeutrophils/100 WBC (Bld)81.7 %Critically high43.0-75.0The [facility] ToledoComment on above:Performed By: #### CBC ####[facility] Zcmlvzsxvt24[address] [place], [place] [address]Dr.Omid BowdenPlatelet mean volume (Bld) [Entitic vol]8.9 fLCritically low9.5-13.5ThWhite Hospital Comment on above:Performed By: #### CBC ####[facility] Gtgiodhywf[address] [place], [place] [address]Dr.Omid BowdenPLT252 103/sgEshoos844-979Mnd [facility] ToledoComment on above:Performed By: #### CBC ####[facility] Tqirdzbwxl[address] [place], [place] [address]DrRadha BowdenRBC4.01 106/ul Critically low4.20-5.40The [facility] ToledoComment on above:Performed By: #### CBC ####[facility] Fawrnudmgh[address] [place], [place] [address]DrMedardo Anne BzdmwGXE35.3 103/ulCritically high4.0-11.0The [facility] ToledoComment on above:Performed By: #### CBC ####[facility] [address]xunw[address] [place], [place] [address]TgDr.Yilan Turner 89-45-3559Gsue [Mass/Vol]59.0 ug/fVUciqxe68.0-170.0The [facility] ToledoComment on above:Performed By: #### HGB #### [facility] [address] [place], [place] [address] Dr. Omid BowdenMAMMEvelia POST BIOPSY RIGHTon 11-91-7319KNQDE POST BIOPSY RIGHT Patient: HARMAN MCLEOD Exam Date: 08/19/2022 : 1940 Gender:F Ordering : DR MATEUS PERRY . Admission #: [id number] Family : Order #: [id number] CLICK HERE TO VIEW EXAM This report [...] by: Judson Bauman MD on 09/06/2022 at 09:57[facility] PROTIMEon 96-78-1801JMM Coag (PPP) [Relative time]0.99 {INR}NormalThe Metrohealth SystemComment on above:Performed By: #### PT, PTT ####[facility] [address]zptl[address] [place], [place] [address]DhDr. Omid BowdenINR GUIDELINES SEE BELOWNormalThWhite HospitalComment on above:Result Comment: DESIRED INR: 2.0 - 3.0 CONDITIONS NOT LISTED BELOW 2.5 - 3.5 FOR PROSTHETIC HEART VALVE REPLACEMENT 2.5 - 3.5 RECURRENT THROMBOSISPerformed By: #### PT, PTT ####[facility] [address]brug[address] [place], [place] [address]Te. Yilan ChangPT Coag (PPP) [Time]10.7 sNormal9.0-11.6The [facility] ToledoComment on above:Performed By: #### PT, PTT ####[facility] [address]wsvfb[address] [place], [place] [address]Jl. Yilan ChangPTTon 97-08-1618aJVA Coag (Bld) [Time]26.0 wNdbire34.3-36.2The [facility] ToledoComment on above:Performed By: #### PT, PTT ####[facility] [address] [place] [address]Dr. Yilan ChangUS VAC ASST BX BRST RT W CLIPon 14-93-4579SW VAC ASST BX BRST RT W CLIPPatient: HARMAN MCLEOD Exam Date: 08/19/2022 : 1940 Gender:F Ordering : DR MATEUS PERRY . Admission #: [id number] Family : Order #: [id number] CLICK HERE TO VIEW EXAM This report [...] by: Judson Bauman MD on 09/06/2022 at 09:55[facility] CULTURE URINEon 68-23-5948EDAUCYB URINEIsolate 1 Enterococcus faecalis 100,000 cfu/mL of [...] >=16 R F Nitrofurantoin <=16 S FNormalThe [facility] ToledoComment on above:Performed By: #### URCX ####[facility] [address] [place] [address]Dr. Omid Chaves ADILIA ADMITon 52-03-4872QT [Catalytic activity/Vol] 128 U/WDrmqnt44-765Xnn [facility] ToledoComment on above:Performed By: #### LIPID, BMP #### [facility] [address] [place] [address] [address] Omid Sawyer.MB [Mass/Vol]2.88 ng/mLNormal<=3.60[facility] Comment on above:Performed By: #### LIPID, BMP #### [facility] [address] [place] [address] [address] Omid GarzaTROP24.1 pg/mLNormal4.0-51.3The [facility] ToledoComment on above:Result Comment: CUT-OFF POINTS HAVE BEEN ESTABLISHED BASED ON THE FOURTH UNIVERSAL DEFINITIONS OF MYOCARDIAL INFARCTION. THE UPPER REFERENCE LIMIT (URL) OF TROPONIN, DEFINED THE 99TH PERCENTILE OF cTnI DISTRIBUTION IN A REFERENCE POPULATION, HAS BEEN CONFIRMED THE DECISION THRESHOLD FOR DE DIAGNOSIS.Performed By: #### LIPID, BMP #### [facility] [address] [place] [address] Dr. Omid Allen61 ng/mLNormal9-82The [facility] ToledoComment on above: Performed By: #### LIPID, BMP #### [facility] [address] [place] [address] Dr. Omid Tolliver AUTO DIFFon 94-71-4636KBSX #0.0 103/ulNormal0.0-0.1The [facility] ToledoComment on above:Performed By: #### HGB #### [facility] [address] [place] [address] Dr. Omid BowdenBasophils/100 WBC (Bld)0.4 %Normal0.2-2.0[facility] Comment on above:Performed By: #### HGB #### [facility] [address] [place] [address] Dr. Omid Maldonado #0.3 103/ulNormal0.0-0.7The [facility] ToledoComment on above: Performed By: #### HGB #### [facility] [address] [place] [address] Dr. Omid Batesosinophils/100 WBC (Bld)2.6 %Normal0.9-7.0[facility] Comment on above:Performed By: #### HGB #### [facility] [address] [place] [address] Dr. Omid Batesrythrocyte distribution width (RBC) [Ratio]14.1 %Tdtyuq17.0-15.0 The [facility] ToledoComment on above:Performed By: #### HGB #### [facility] [address] [place] [address] Dr. Omid BowdenHematocrit (Bld) [Volume fraction]35.5 %Critically low36.0-48.0 The [facility] Hospital ToledoComment on above:Performed By: #### HGB #### [facility] [address] [place] [address] [address] Omid BowdenHemoglobin (Bld) [Mass/Vol]11.6 g/dLCritically low12.0-16.0The [facility] ToledoComment on above:Performed By: #### HGB #### [facility] [address] [place] [address] Dr. Omid Aceves #0.06 10e3/ulCritically high0.00-0.03The [facility] Comment on above:Performed By: #### HGB #### [facility] [address] [place] [address] Dr. Omid Aceves %0.6 %Critically high0.0-0.5The [facility] ToledoComment on above:Performed By: #### HGB #### [facility] [address] [place] [address] Dr. Omid Mosley #3.4 103/ulNormal1.2-3.8The [facility] ToledoComment on above:Performed By: #### HGB #### [facility] [address] [place] [address] Dr. Omid Bradleyhocytes/100 WBC (Bld)35.5 %Mavdje36.5-60.0The [facility] ToledoComment on above:Performed By: #### HGB #### [facility] [address] [place] [address] Dr. Omid ConcepcionUAL DIFF REQNONormalThe [facility] ToledoComment on above: Performed By: #### HGB #### [facility] [address] [place] [address] Dr. Omid Hodgson (RBC) [Entitic mass]29.5 grPptotl93.7-34.0The [facility] ToledoComment on above:Performed By: #### HGB #### [facility] [address] [place] [address] Dr. Omid Hodgson (RBC) [Mass/Vol]32.7 g/eKYuaxlf92.9-35.2The [facility] ToledoComment on above:Performed By: #### HGB #### [facility] [address] [place] [address] [address] Omid HodgsonV (RBC) [Entitic vol]90.3 yQJbqpvx88.0-99.0The [facility] ToledoComment on above:Performed By: #### HGB #### [facility] [address] [place] [address] Dr. Omid Kaur #1.0 103/ulCritically high0.3-0.8The [facility] Comment on above:Performed By: #### HGB #### [facility] [address] [place] [address] Dr. Omid Marquezocytes/100 WBC (Bld)10.5 %Normal1.7-12.0[facility] Comment on above:Performed By: #### HGB #### [facility] [address] [place] [address] Dr. Omid Moreno #4.8 103/ulNormal1.4-6.5The [facility] ToledoComment on above:Performed By: #### HGB #### [facility] [address] [place] [address] Dr. Omid Rizzoutrophils/100 WBC (Bld)50.4 %Jcxcif13.0-75.0The [facility] ToledoComment on above:Performed By: #### HGB #### [facility] [address] [place] [address] Dr. Omid Mcdonaldlet mean volume (Bld) [Entitic vol]9.1 fLCritically low 9.5-13.5The [facility] ToledoComment on above:Performed By: #### HGB #### [facility] [address] [place] [address] Dr. Omid BowdenPLT276 103/hxZwlbni349-147Ild [facility] ToledoComment on above: Performed By: #### HGB #### [facility] [address] [place] [address] Dr. Omid BowdenRBC3.93 106/ulCritically low4.20-5.40The [facility] HospitalComment on above:Performed By: #### HGB #### [facility] [address] [place] [address] [address] Omid BowdenWBC9.5 103/ulNormal4.0-11.0The [facility] SystemComment on above: Performed By: #### HGB #### [facility] [address] [place] [address] [address] Anne ChangEAshley URINE PROFILEon 76-65-3836Obbiewsrs Ql (U)NegativeNormal NEGATIVEThe Metrohealth SystemComment on above:Performed By: #### GABRIEL OTTOR ####[facility] [address] [place] [id number]. Omid ChangClarity (U)CLEARNormalCLEARThe [facility] SystemComment on above: Performed By: #### GABRIEL OTTOR ####[facility] [address] [place] [address]Dr. Omid ChangColor (U)LT. YELLOWNormalYELLOWThe Metrohealth SystemComment on above:Performed By: #### ISSAC OTTO ####[facility] [address] [place] [address]DrMedardo Trejo A micrscopic examination will be performed if indicated.NormalThe [facility] Hospital ToledoComment on above:Performed By: #### GABRIEL OTTOR ####[facility] [address] [place] [id number]. Omid ChangGlucose Ql (U) NegativeNormalNEGATIVEThe Metrohealth SystemComment on above:Performed By: #### GABRIEL OTTOR ####[facility] [address] [place] [address]DrMedardo Anne ChangHemoglobin Ql (U)NegativeNormalNEGATIVEParkview Health Bryan Hospital on above:Performed By: #### CLARITA ERUR ####[facility] [address] [place] [id number]. Aixalan ChangKetones Ql (U) NegativeNormalNEGATIVEMercy Health St. Charles Hospitalue HospitalComment on above:Performed By: #### GABRIEL OTTOR ####[facility] [address] [place], [place] [address]Ax. Omid BowdenLEUKOCYTESTRACEAbnormalNEGATIVEThe [facility] HospitalComment on above:Performed By: #### GABRIEL OTTOR ####[facility] Vhpnsxvkym[address] [place], [place]Dr. Omid BowdenNitrite Ql (U)NegativeNormal NEGATIVEThe Cisco HospitalComment on above:Performed By: #### GABRIEL OTTOR ####[facility] [address]aeorul[address] [place] [address]Dr. Omid BowdenpH (U)6.0 [pH]Normal5-9The [facility] ToledoComment on above: Performed By: #### GBARIEL OTTOR ####[facility] [address]jaksam[address] [place] [address]Dr. Omid BowdenSPEC GRAVITY1.597Qchdrt4.005-<=1.025The [facility] ToledoComment on above:Performed By: #### ISSAC OTTO ####[facility] Qofvftxdbz[address] [place] [address]Dr. Omid BowdenUA PROTEINNegativeNormalNEGATIVE/ TRACEThe Cisco HospitalComment on above: Performed By: #### ISSAC OTTO ####[facility] Xtubnsrrtl[address] [place] [phone]. Omid BowdenUR MICRO INDINDICATEDNormalThe Cisco HospitalComment on above:Performed By: #### GABRIEL OTTOR ####[facility] Qvwyefjysf[address] [place] [address]Dr. Omid BowdenUrobilinogen Qn (U)0.2 {Jose'U}/dLNormal0.2 - 1.0The Cisco HospitalComment on above: Performed By: #### GABRIEL OTTOR ####[facility] Uvdxjrfnlu[address] [place] [address]DrMedardo Cerda BLD IMMUNO SCREENon 70-38-7587NTNRFL BLOODNegativeNormalNEGATIVEThe [facility] ToledoComment on above:Performed By: #### OBSCRN #### [facility] [address] [place] [address] [address] Omid BowdenPROF CHEM 8 (BAS METB)on 94-58-6307Kiuas gap [Moles/Vol]5.5 mmol/LNormalThe [facility] ToledoComment on above:Performed By: #### LIPID, BMP #### [facility] [address] [place] [address] Dr. Omid BowdenCalcium [Mass/Vol]8.6 mg/dLNormal8.5-10.1The [facility] Comment on above:Performed By: #### LIPID, BMP #### [facility] [address] [place] [address] Dr. Omid BowdenChloride [Moles/Vol]103 mmol/WWeuuwo54-995Bkw [facility] Comment on above:Performed By: #### LIPID, BMP #### [facility] [address] [place] [address] Dr. Omid BowdenCO2 [Moles/Vol]31.8 mmol/XUsmwtc50.0-32.0[facility] Comment on above:Performed By: #### LIPID, BMP #### [facility] [address] [place] [address] Dr. Omid BowdenCreatinine [Mass/Vol]0.99 mg/dLNormal0.55-1.02The [facility] ToledoComment on above:Performed By: #### LIPID, BMP #### [facility] [address] [place] [address] Dr. Anne ChangEGFR-AF CROATIAN>60Normal>=60The [facility] ToledoComment on above:Performed By: #### LIPID, BMP #### [facility] [address] [place] [address] Dr. Omid BatesGFR-NON AF ZELEWENW42 mL/min/1.01e0Fxhxclgpkj low>=60The [facility] ToledoComment on above:Performed By: #### LIPID, BMP #### [facility] [address] [place] [address] [address] Omid BowdenGlucose [Mass/Vol]112 mg/dLCritically opyd62-002Xza [facility] on above:Performed By: #### LIPID, BMP #### [facility] [address] [place] [address] [address] Omid BowdenPotassium [Moles/Vol]3.3 mmol/LCritically low3.5-5.1The [facility] ToledoComment on above:Performed By: #### LIPID, BMP #### [facility] [address] [place] [address] [address] Omid BowdenSodium [Moles/Vol]137 mmol/WAaegsw707-743Boc [facility] Comment on above:Performed By: #### LIPID, BMP #### [facility] [address] [place] [address] [address] Omid BowdenUrea nitrogen [Mass/Vol]20.0 mg/dLCritically high7.0-18.0The [facility] on above:Performed By: #### LIPID, BMP #### [facility] [address] [address] [address] Omid Lawson nitrogen/Creatinine [Mass ratio]20.2 mg/mgNoHolzer Health SystemCommemorial healthcare on above:Performed By: #### LIPID, BMP #### [facility] [address] [address] [address] Omid Busch MICROSCOPIC ONLYon 29-88-4039KCNHZZWQAMBJDYrewdtppGRZK SEEN The [facility]edoCommemorial healthcare on above:Performed By: #### CLARITA ERUR ####[facility] [address]dt[address] [place] [phone]. Omid Crockettcteria identified Cx Nom (U)INDICATEDUniversity [facility]als Conne[facility] Center Comment on above:Performed By: #### CLARITA, ERUR ####[facility] [address]seosolphv[address] [place], [place]Dr. Omid Odom SEEN NormalNONE SEENThe Lindy HospitalComment on above:Performed By: #### CLARITA, ERUR ####[facility] [address]flaisbie[address] [place] [phone]. Omid KalCrystals LM Nom (Urine sed)NONE SEENNormalNONE SEENThe [facility] ToledoComment on above:Performed By: #### CLARITA, ERUR ####[facility] [address]gfqjtgnc[address] [place] [phone]. Omid ChangEpithelial cells LM Ql (Urine sed)FEWAbnormalNONE SEEN /RAREThe [facility] ToledoComment on above:Performed By: #### CLARITA ERUR ####[facility] [address]igjdk[address] [place] [phone]. Omid BowdenMUCOUSNONE SEENNormalNONE SEENThe [facility] ToledoComment on above:Performed By: #### CLARITA ERUR ####[facility] [address]zxep[address] [place] [phone]. Omid BowdenRBC0-2 Normal0-2The [facility] ToledoComment on above:Performed By: #### CLARITA ERUR ####[facility] [address]votcqxtjw62[address] [place] [phone]. Omid BowdenWzejvPKV55-16IabvouxrQNVD SEENThe [facility] Hospital ToledoComment on above: Performed By: #### CLARITA, ERUR ####[facility] [address]wn[address]ymlk[address] [place] [phone]. Omid BowdenXR CHEST 1 Von 02-10-9874XX CHEST 1 V CHEST X-RAY HISTORY: Chest pain COMPARISON: 04/06/2021 TECHNIQUE: 1 view chest is submitted for review. FINDINGS: The lungs are adequately expanded without evidence for acute infiltrate or effusion. The cardiac silhouette is enlarged. Pulmonary vascularity is unremarkable. Osseous structures are within expected limits for patients age. . IMPRESSION: Cardiomegaly. Electronically authenticated by: HILL BAILON Date: 2022-08-14 00:46NoHolzer Health SystemCovid-19 PCR (CVDTBH)on 92-21-0542WLJI-CoV-2 (COVID-19) RNA MARII+probe Ql (Unsp spec)Not detectedNormalNOT DETECTEDThe [facility] Comment on above:Result Comment: When diagnostic testing [...] for this test is supported by the [employer] of Health and Human Service's declaration that [...] longer be used).Performed By: #### CVDTBH #### [facility] [address] [place] [address] Dr. Omid BowdenMG MAMM RT DIAG FUon 53-47-6808EA MAMM RT DIAG FUPatient: HARSHA HARMAN L. Exam Date: 08/08/2022 : 1940 Gender:F Ordering : DR MATEUS PERRY . Admission #: [id number] Family : Order #: [id number] CLICK HERE TO VIEW EXAM RADIOLOGY REPORT [...] at age 39. LOCATION: [facility] BREAST COMPOSITION: Scattered areas fibroglandular density. FINDINGS: [...] by: Alfonso George M.D. on 08/08/2022 at 15:28[facility] Medical CenterPROF CHEM 8 (BAS METB)on 86-57-0154Prwqh gap [Moles/Vol]9.3 mmol/LNormal The [facility]edoComment on above:Performed By: #### BMP #### [facility] [address] [address] [address] Omid BowdenCalcium [Mass/Vol]8.1 mg/dLCritically low8.5-10.1The [facility] ToledoComment on above:Performed By: #### BMP #### [facility] [address] [place] [address] Dr. Omid BowdenChloride [Moles/Vol]100 mmol/TMavdhj01-330CuuThe [facility] Comment on above:Performed By: #### BMP #### [facility] [address] [address] [address] Omid BowdenCO2 [Moles/Vol]31.9 mmol/IZoyeuv48.0-32.0[facility] Comment on above:Performed By: #### BMP #### [facility] [address] [place] [address] [address] Omid BowdenCreatinine [Mass/Vol]1.25 mg/dLCritically high0.55-1.02The [facility] ToledoComment on above:Performed By: #### BMP #### [facility] [address] [place] [address] [address] Omid BatesGFR-AF OCANZISZ00 mL/min/1.00v0Loyzushjmq low>=60The [facility] ToledoComment on above:Performed By: #### BMP #### [facility] [address] [place] [address] [address] Omid BatesGFR-NON AF FUAUSANB64 mL/min/1.93o9Ikfywcbbds low>=60The [facility] ToledoComment on above:Performed By: #### BMP #### [facility] [address] [place] [address] [address] Omid BowdenGlucose [Mass/Vol]215 mg/dLCritically nuic91-620Zxp [facility] ToledoComment on above:Performed By: #### BMP #### [facility] [address] [place] [address] Dr. Omid BowdenPotassium [Moles/Vol]3.2 mmol/LCritically low3.5-5.1The [facility] ToledoComment on above:Performed By: #### BMP #### [facility] [address] [place] [address] Dr. Omid BowdenSodium [Moles/Vol]138 mmol/UYfmtej908-627Qta [facility] Comment on above:Performed By: #### BMP #### [facility] [address] [place] [address] Dr. Omid BowdenUrea nitrogen [Mass/Vol]32.0 mg/dLCritically high7.0-18.0The [facility] ToledoComment on above:Performed By: #### BMP #### [facility] [address] [place] [address] Dr. Omid Lawson nitrogen/Creatinine [Mass ratio]25.6 mg/mgNormalThe [facility] ToledoComment on above:Performed By: #### BMP #### [facility] [address] [place] [address] Dr. Omid BowdenUS BREAST RIGHT LIMITEDon 64-79-2376KV BREAST RIGHT LIMITED Patient: HARMAN MCLEOD Exam Date: 08/08/2022 : 1940 Gender:F Ordering : DR MATEUS PERRY . Admission #: [id number] Family : Order #: [id number] CLICK HERE TO VIEW EXAM RADIOLOGY REPORT [...] at age 39. LOCATION: [facility] BREAST COMPOSITION: Scattered areas fibroglandular density. FINDINGS: [...] by: Alfonso George M.D. on 08/08/2022 at 15:28NoHolzer Health SystemCALCIUMon 63-39-2858Aturuze [Mass/Vol]8.9 mg/dLNormal8.5-10.1The [facility]edoComment on above:Performed By: #### HGB #### [facility] [address] [place] [address] Dr. Omid VuINEon 34-03-3905Jwwowgvtlg [Mass/Vol]1.19 mg/dLCritically high0.55-1.02The [facility] ToledoComment on above:Performed By: #### HGB #### [facility] [address] [place], [place] [address] Dr. Anne ChangEGFR-AF VOWSJQHA11 mL/min/1.68m7Nrbacozmev low>=60The [facility] ToledoComment on above:Performed By: #### HGB #### [facility] [address] [place], [place] [address] Dr. Anne ChangEGFR-NON AF OUCSCXGB81 mL/min/1.39n9Gdlgujgfae low>=60The [facility] ToledoComment on above:Performed By: #### HGB #### [facility] [address] [place], [place] [address] Dr. Omid BowdenMG MAMM SCREEN 3D DAVID CADon 40-68-2905FN MAMM SCREEN 3D DAVID CAD Patient: HARMAN MCLEOD Exam Date: 07/19/2022 : 1940 Gender:F Ordering : DR MATEUS PERRY . Admission #: [id number] Family : Order #: [id number] CLICK HERE TO VIEW EXAM RADIOLOGY REPORT [...] at age 39. LOCATION: [facility] BREAST COMPOSITION: Scattered areas fibroglandular density. FINDINGS: [...] by: Judson Bauman MD on 07/20/2022 at 07:33[facility] CenterXR DEXA BONE DENSITYon 93-93-9425YO DEXA BONE DENSITYEXAMINATION: XR DEXA BONE DENSITY, [...] Electronically authenticated by: JUDSON BAUMAN Date: 2022-07-19 20:17[facility] Medical CenterCALCIUM, IONIC (POC)on 64-66-7025KLN Ionized Calcium1.21 mmol/L 1.15 - 1.33 mmol/LBON [facility] HOSPITALFresco Logic HEALTHCHLORIDE (POC)on 57-49-4971Bolsdjhb [Moles/Vol]103 mmol/L98 - 107 mmol/LBON [facility] COMMUNITY HOSPITALGeneroCreatinine W/GFR Point of Careon 63-73-4628Rqmfospmwb [Mass/Vol]0.93 mg/dL0.51 - 1.19 mg/dLBON [facility] HOSPITALFresco Logic [facility]ITALeGFR, POCmL/min/1.03a0EPA [facility] CENTERComment on above: Effective Jun 13, [...] affects renal tubular secretion. Lactic Acid, POCon 34-28-3657MCM Lactic Acid1.56 mmol/LHigh0.56 - 1.39 mmol/LBON [facility] HOSPITALFresco Logic [facility]PITALNo Panel Informationon 49-84-4521Xuogejhatuxlem and review of laboratory resultsAbnormalBON [facility] / [facility] HEALTHPO Glucose Fingerstickon 93-38-3461Yglpydg [Mass/Vol]135 mg/bSCkkh31 - 105 mg/dL [facility] HEALTHInterpretation and review of laboratory resultsAbnormal B[facility] MEDICAL CENTERBON [facility] MEDICAL CENTERPOCT Glucoseon 15-36-0284Vtpbuju [Mass/Vol]147 mg/xEKnhn26 - 100 mg/dLBON OUR LADY [facility] MERCY HOSPITALCT urea (BUN)on 01-75-7209Cvnk nitrogen [Mass/Vol]20 mg/dL8 - 26 mg/dLBON [facility] POTASSIUM (POC)on 52-49-2625Fpmwreggs [Moles/Vol]3.7 mmol/L3.5 - 4.5 mmol/LBON [facility] MEDICAL CENTERSODIUM (POC)on 92-16-9173Kmigps [Moles/Vol]141 mmol/L138 - 146 mmol/LBON [facility] MEDICAL CENTERPROF CHEM 8 (BAS METB)on 75-19-2219Iactw gap [Moles/Vol]9.0 mmol/LNormalThe [facility]edoComment on above:Performed By: #### BMP ####[facility] [address] [place] [address]Dr.Yilan ChangCalcium [Mass/Vol]9.0 mg/dLNormal8.5-10.1The [facility] ToledoComment on above:Performed By: #### BMP ####[facility] J[address]ktzlvjyc[address] [place], [place] [address]Dr.Yilan ChangChloride [Moles/Vol]98 mmol/NQkxdio96-488Uhq [facility]edoComment on above:Performed By: #### BMP ####[facility] [address] [place] [address]Dr.Yilan ChangCO2 [Moles/Vol]33.2 mmol/LCritically high21.0-32.0The [facility] ToledoComment on above:Performed By: #### BMP ####[facility] [address]tslcenhr[address] [place] [address]Dr.Yilan ChangCreatinine [Mass/Vol]1.32 mg/dLCritically high0.55-1.02The [facility] ToledoComment on above:Performed By: #### BMP ####[facility] [address]fdkq[address] [place] [address]Dr.Yilan ChangEGFR-AF OIOWLIDK18 mL/min/1.73m2 Critically low>=60The [facility] ToledoComment on above:Performed By: #### BMP ####[facility] Unvsxcocir[address] [place], [place] [address]Dr. Yilan ChangEGFR-NON AF NDNGXTKQ48 mL/min/1.01k5Hfrfztwexi low>=60The [facility]edoComment on above:Performed By: #### BMP ####[facility] Eihvrtyuyn[address] [place], [place] [address]Dr.Yilan ChangGlucose [Mass/Vol]220 mg/dLCritically dpzk78-571Urm [facility]edoComment on above: Performed By: #### BMP ####[facility] Yogffgdhpl[address] [place], [place] [address]Dr.Yilan ChangPotassium [Moles/Vol]3.2 mmol/L Critically low3.5-5.1The [facility] ToledoComment on above:Performed By: #### BMP ####[facility] Nmnanibkzc[address] [place], [place] [address]Dr. Yilan ChangSodium [Moles/Vol]137 mmol/OJyfpcs370-035Ixg [facility] ToledoComment on above:Performed By: #### BMP ####[facility] Kuapkjelgp[address] [place], [place] [address]Dr.Yilan ChangUrea nitrogen [Mass/Vol]31.0 mg/dL Critically high7.0-18.0The [facility] ToledoComment on above:Performed By: #### BMP ####[facility] Pwxepozexe[address] [place], [place] [address]Dr. Yilan ChangUrea nitrogen/Creatinine [Mass ratio]23.5 mg/mgNormalThe [facility] ToledoComment on above:Performed By: #### BMP ####[facility] [address]neiigqtrc[address] [place], [place] [address]Dr.Yilan ChangECHOCARDIO M/2D COMPLETEon 92-24-5762QWVKQVNYDM M/2D COMPLETEPatient: HARMAN MCLEOD Exam Date: 04/12/2022 : 1940 Gender:F Ordering : [facility] Admission #: [id number] Family : Order #: [id number] CLICK HERE TO VIEW EXAM ECHOCARDIOGRAM REPORT [...] by: Bertram Keyes M.D. on 04/12/2022 at 19:15NormalThe Metrohealth SystemPROF CHEM 8 (BAS METB)on 97-74-0503Pzkmo gap [Moles/Vol]12.4 mmol/L NormalThe Metrohealth SystemComment on above:Performed By: #### BMP ####[facility] Ryuwxuwmta[address] [place], [place] [address]Dr.Omid Bowden Calcium [Mass/Vol]9.1 mg/dLNormal8.5-10.1The [facility] ToledoComment on above: Performed By: #### BMP ####[facility] [address]prqcdoll[address] [place] [address]Dr.Yilan ChangChloride [Moles/Vol]100 mmol/LNormal 98-107The [facility] ToledoComment on above:Performed By: #### BMP ####[facility] Klhauivzqt[address] [place], [place] [address]Dr.Yilan ChangCO2 [Moles/Vol]33.0 mmol/LCritically high21.0-32.0The [facility] ToledoComment on above:Performed By: #### BMP ####[facility] Aefxfixrcl[address] [place], [place] [address]Dr.Yilan ChangCreatinine [Mass/Vol]1.15 mg/dL Critically high0.55-1.02The [facility] ToledoComment on above:Performed By: #### BMP ####[facility] V[address]kvfkjnbb[address] [place], [place] [address]Dr.Yilan ChangEGFR-AF ZONUAPQF61 mL/min/1.78r5Ekufxrgzbj low>=60The [facility] ToledoComment on above:Performed By: #### BMP ####[facility] Qaxvmoiovi[address] [place], [place] [address]Dr.Yilan ChangEGFR-NON AF NYIANZJY79 mL/min/1.66s8Ysduuwbmxv low>=60The [facility] ToledoComment on above: Performed By: #### BMP ####[facility] [address]ioqylenq[address] [place], [place] [address]Dr.Yilan ChangGlucose [Mass/Vol]167 mg/dLCritically bxjz82-625Qds [facility] ToledoComment on above:Performed By: #### BMP ####[facility] [address]zurotwxyi[address] [place], [place] [address]Dr. Yilan ChangPotassium [Moles/Vol]3.4 mmol/LCritically low3.5-5.1The [facility] ToledoComment on above:Performed By: #### BMP ####[facility] [address]eldpfgt[address] [place], [place] [address]Oo.Omid ChangSodium [Moles/Vol]142 mmol/AIhkbvp402-920Hdx [facility] ToledoComment on above: Performed By: #### BMP ####[facility] Npbxumowpx[address] [place], [place] [address]Sa.Aixalan ChangUrea nitrogen [Mass/Vol]23.0 mg/dL Critically high7.0-18.0The [facility] ToledoComment on above:Performed By: #### BMP ####[facility] R[address]dtekrvd[address] [place], [place] [address]Kc. Omid ChangUrea nitrogen/Creatinine [Mass ratio]20.0 mg/mgUniversity Hospitals Conneaut Medical CenterComment on above:Performed By: #### BMP ####[facility] Yvnsikaumc[address] [place], [place] [address]Sv.Omid TiwariMATIC COVID-19 ANTIGENon 96-07-2240RWR [facility] Comment on above:Result Comment: This [...] revoked sooner.Performed By: #### LIPID, BMP #### [facility] [address] [place] [address] [address] Omid Gonzales-CoV-2 (COVID-19) RNA MARII+probe Ql (Unsp spec)Positive Critically abnormalNEGATIVEThe [facility] Hospital ToledoComment on above:Performed By: #### LIPID, BMP #### [facility] [address] [place] [address] Dr. Omid BowdenHEMOGLOBINon 52-36-4519Ptkodnjobc (Bld) [Mass/Vol]12.3 g/dLNormal 12.0-16.0The [facility] ToledoComment on above:Performed By: #### HGB #### [facility] [address] [place] [address] Dr. Omid Godinez 63-21-7469Gbfycjnnfdu peptide B (Bld) [Mass/Vol]598.0 pg/mL Normal<=1,800.0The [facility] ToledoComment on above:Performed By: #### LIPID, BMP #### [facility] [address] [place] [address] Dr. Omid BowdenPROF CHEM 8 (BAS METB)on 05-46-8858Bbmgs gap [Moles/Vol]11.9 mmol/LNormalThe [facility] ToledoComment on above:Performed By: #### LIPID, BMP #### [facility] [address] [place] [address] Dr. Omid BowdenCalcium [Mass/Vol]9.1 mg/dLNormal8.5-10.1The [facility] Comment on above:Performed By: #### LIPID, BMP #### [facility] [address] [place] [address] Dr. Omid BwodenChloride [Moles/Vol]98 mmol/DKmuddt91-627Tiw [facility] Comment on above:Performed By: #### LIPID, BMP #### [facility] [address] [place] [address] Dr. Omid BowdenCO2 [Moles/Vol]33.2 mmol/LCritically high21.0-32.0The [facility] ToledoComment on above:Performed By: #### LIPID, BMP #### [facility] [address] [place] [address] Dr. Omid BowdenCreatinine [Mass/Vol]1.28 mg/dLCritically high0.55-1.02The [facility] ToledoComment on above:Performed By: #### LIPID, BMP #### [facility] [address] [place] [address] [address] Anne ChangEGFR-AF MEKBIBSF54 mL/min/1.10n7Bitcyqvjgh low>=60The [facility] ToledoComment on above:Performed By: #### LIPID, BMP #### [facility] [address] [place] [address] [address] Anne ChangEGFR-NON AF DRYLQPQK12 mL/min/1.95k5Yqktjnlrkv low>=60The [facility] ToledoComment on above:Performed By: #### LIPID, BMP #### [facility] [address] [place] [address] [address] Omid BowdenGlucose [Mass/Vol]182 mg/dLCritically knku74-158Mjb [facility] ToledoComment on above:Performed By: #### LIPID, BMP #### [facility] [address] [place] [address] [address] Omid BowdenPotassium [Moles/Vol]3.1 mmol/LCritically low3.5-5.1The [facility] ToledoComment on above:Performed By: #### LIPID, BMP #### [facility] [address] [place] [address] [address] Omid BowdenSodium [Moles/Vol]140 mmol/IXfhtsq432-429Gve [facility] Comment on above:Performed By: #### LIPID, BMP #### [facility] [address] [place] [address] [address] Omid BowdenUrea nitrogen [Mass/Vol]30.0 mg/dLCritically high7.0-18.0The [facility] ToledoComment on above:Performed By: #### LIPID, BMP #### [facility] [address] [place] [address] Dr. Omid BowdenUrea nitrogen/Creatinine [Mass ratio]23.4 mg/mgNormalThe [facility] ToledoComment on above:Performed By: #### LIPID, BMP #### [facility] [address] [place] [address] [address] Omid BowdenXR CHEST 2 Von 05-06-9541HA CHEST 2 VEXAMINATION: XR CHEST 2 V [...] Electronically authenticated by: ALFONSO GEORGE Date: 2022-02-09 11:[address] [place], [place] [address]No Panel Informationon 83-45-1139Geuqx HealthPOCT Glucoseon 61-71-1848Xethbjf [Mass/Vol]196 mg/aQJbom21 - 100 mg/dLMain [facility] Center SciFluor Life Sciences Interpretation and review of laboratory resultsAbnormalThe Surgical Hospital At SouthwoodsPOTASSIUM (POC)on 66-80-3381Aigdexfnt [Moles/Vol]3.7 mmol/L3.5 - 4.5 mmol/LMselect medical trihealth rehabilitation hospitaly Health TYPE AND SCREENon 80-51-7514WGO/RhPositiveThe Surgical Hospital At SouthwoodsArm Band NumberBE [id number] [facility] HealthExpiration Date12/16/2021,2359[facility] SciFluor Life SciencesThe Surgical Hospital At SouthwoodsEKG 12 lead Ordered By: Dennis Garcia on 58-29-9966Qulwhf Hyvr91VYMObtud Health Work Phone: p Ctta37fwzdzpqQeesh Health Work Phone: p-R Nbtrjusf623 [employer] Work Phone: Q-T Daunfzlt009 [employer] Work Phone: QRS Wuqbvafc436 [facility] Work Phone: QTc Calculation (Yaritza)488 [employer] Work Phone: r Ymlb23ferlecyXvdln Health Work Phone: T Kutg326fxosfhaJhyuo Health Work Phone: Ventricular Agyv61NMCFhxeu Health Work Phone: [facility] HospitalRxApps Work Phone: eKG 12 leadon 66-71-9427Idduc rhythm with Premature atrial complexes Left bundle branch block Abnormal ECG When compared with ECG of 12-MAY-2021 12:39, T wave inversion now evident in Inferior leadsMHPN STV Dennis Kauffman MD - 12/07/2021 Sinus rhythm with Premature atrial complexes Left bundle branch block Abnormal ECG When compared with ECG of 12-MAY-2021 12:39, T wave inversion now evident in Inferior leadsThe Surgical Hospital [facility]woods Work Phone: cbc auto differentialon 95-21-0562Lpeuloxf Eos #0.13 The [facility] Hospital At SouthwoodsAbsolute Immature Granulocyte0.12The [facility] Hospital [facility] SouthwoodsAbsolute Lymph #3.18 The [facility] Hospital [facility] SouthwoodsAbsolute Baker #1.22HighThe Surgical Hospital At SouthwoodsBasophils (Bld) [#/Vol]0.05 10*3/uLThe Surgical Hospital At SouthwoodsBasophils/100 WBC (Bld)0 %0 - 2 %The [facility] SouthwoodsEosinophils/100 WBC (Bld)1 %1 - 4 %The [facility] Hospital [facility] SouthwoodsHematocrit (Bld) [Volume fraction]38.4 %36.3 - 47.1 %The [facility] Hospital [facility] SouthwoodsHemoglobin.gastrointestinal spec 1 Ql (Stl)12.2 g/dL11.9 - 15.1 g/dLThe Surgical Hospital At SouthwoodsImmature granulocytes/100 WBC (Bld)1 %[address] Interpretation and review of laboratory resultsAbnormalThe [facility] Lymphocytes/100 WBC (Bld)25 %24 - 43 %[facility] HospitalH (RBC) [Entitic mass]29.9 pg25.2 - 33.5 pgMercy Health Perrysburg HospitalHC (RBC) [Mass/Vol]31.8 g/dL28.4 - 34.8 g/dLMercy Health Perrysburg HospitalV (RBC) [Entitic vol]94.1 fL82.6 - 102.9 fLThe Surgical Hospital At SouthwoodsMonocytes/100 WBC (Bld)10 %3 - 12 %[facility] SouthwoodsNRBC Automated0.00.0 per 100 WBCThe Surgical Hospital At Southwoods Platelet distribution width (Bld) [Ratio]14.5 %High11.8 - 14.4 %[facility] Platelet mean volume (Bld) [Entitic vol]10.1 fL8.1 - 13.5 fLThe Surgical Hospital At Southwoods Platelets (Bld) [#/Vol]266 10*3/uLMer HealthRBC (Bld) [#/Vol]4.08 10*6/uL3.95 - 5.11 m/uLMain Campus Medical Center HealthRBC (Bld) [#/Vol]ANISOCYTOSIS PRESENTThe Surgical Hospital At Southwoods Segmented neutrophils/100 WBC (Bld)63 %36 - 65 %[facility] Hospital [facility] SouthwoodsSegs Absolute7.88 [facility] SouthwoodsWBC (Bld) [#/Vol]12.6 10*3/uLHighSt. Francis Medical Center Comprehensive Metabolic Panel w/ Reflex to MGon [id number] [Mass/Vol]3.7 g/dL3.5 - 5.2 g/dLMain Campus Medical Center HealthAlbumin/Globulin [Mass ratio]1.1 {ratio}[facility] Hospital [facility] SouthwoodsALP (Bld) [Catalytic activity/Vol]93 U/L35 - 104 U/LMercy HealthALT [Catalytic activity/Vol]12 U/L5 - 33 U/LMercy HealthAnion gap [Moles/Vol]14 mmol/L9 - 17 mmol/LMercy HealthAST [Catalytic activity/Vol]12 U/L<32[facility] Bilirubin [Mass/Vol]0.25 mg/dLLow0.3 - 1.2 mg/dLMain Campus Medical Center HealthCalcium [Mass/Vol] 9.1 mg/dL8.6 - 10.4 mg/dLMain Campus Medical Center HealthChloride [Moles/Vol]95 mmol/LLow98 - 107 mmol/LMercy HealthCO2 [Moles/Vol]30 mmol/L20 - 31 mmol/LMercy HealthCreatinine [Mass/Vol]1.07 mg/dLHigh0.50 - 0.90 mg/dLMain Campus Medical Center HealthFree PSA/Total PSA [Mass fraction]7.2 g/dL6.4 - 8.3 g/dLMain Campus Medical Center HealthGFR Xdvxxxkf88 mL/minLow>60 [facility] HealthGFR Non- Pjsbqelw55 mL/minLow>60[facility] HealthGFR/1.73 sq M.predicted MDRD (S/P/Bld) [Vol rate/Area][facility] SouthwoodsComment on above:Average GFR for 70 or more years old: 75 mL/min/1.73sq m Chronic Kidney Disease: <60 mL/min/1.73sq m Kidney failure: <15 mL/min/1.73sq m eGFR calculated using average adult body mass. Additional eGFR calculator available at: http://www.[employer]/multiple_crcl_2012.htm Glucose [Mass/Vol]188 mg/yXClho21 - 99 mg/dLMain Campus Medical Center HealthInterpretation and review of laboratory resultsAbnormalMer HealthPotassium [Moles/Vol]3.3 mmol/L Low3.7 - 5.3 mmol/LMercy HealthSodium [Moles/Vol]139 mmol/L135 - 144 mmol/LMercy HealthUrea nitrogen (BldV) [Mass/Vol]22 mg/dL8 - 23 mg/dLWilson [facility] HealthMagnesiumon [id number] [Mass/Vol]1.6 mg/dL1.6 - 2.6 mg/dLSt. Francis Medical CenterNo Panel Informationon [id number] acute process. [facility] CONSOLIDATEDEXAMINATION: TWO XRAY VIEWS OF THE CHEST [...] The osseous structures are without acute process. [facility] Kael Black MD - 12/06/2021 EXAMINATION: TWO [...] without acute process. IMPRESSION: No acute process. [employer] Phone: radiology Study observation (narrative)[employer] Phone: No Panel InformationOrdered By: Kael Freeman on [id number] Cloud Phone: Creatinine W/GFR Point of CareOrdered By: Kin Abarca on [id number] [Mass/Vol]0.89 mg/dL0.51 - 1.19 mg/dLCo[employer] Cloud Phone: GFR Non->60>60 mL/minProtestant Deaconess HospitalViZn Energy Systems Phone: GFR/1.73 sq M.predicted MDRD (S/P/Bld) [Vol rate/Area] mL/min/{1.73_m2}>60 mL/minProtestant Deaconess HospitalViZn Energy Systems Phone: GFR/1.73 sq M.predicted MDRD (S/P/Bld) [Vol rate/Area] [employer] Phone: comment on above:Average GFR for 70 or more years old: 75 mL/min/1.73sq m Chronic Kidney Disease: <60 mL/min/1.73sq m Kidney failure: <15 mL/min/1.73sq m eGFR calculated using average adult body mass. Additional eGFR calculator available at: http://www.In2G[employer]/multiple_crcl_2012.htm No Panel InformationOrdered By: Kin Abarca on 98-54-0717Tyxqm Health Work Phone: pOC Glucose FingerstickOrdered By: Kin Abarca on 68-51-3939Dbrbeia [Mass/Vol]163 mg/wTHpwk24 - 105 mg/dLProtestant Deaconess HospitalViZn Energy Systems Phone: Interpretation and review of laboratory results AbnormalProtestant Deaconess HospitalViZn Energy Systems Phone: [facility] HospitalVi[facility] Systems Phone: pOCT GlucoseOrdered By: Kin Abarca on 06-15-2021 Glucose [Mass/Vol]186 mg/wRIgll64 - 100 mg/dLProtestant Deaconess HospitalViZn Energy Systems Phone: Interpretation and review of laboratory results AbnormalProtestant Deaconess HospitalViZn Energy Systems Phone: pOTASSIUM (POC)Ordered By: Kin Abarca on 06-15-2021 Potassium [Moles/Vol]4.5 mmol/L3.5 - 4.5 mmol/LMselect medical trihealth rehabilitation hospitaly [employer] Phone: eKG 12 leadOrdered By: Latonia Burks on 05-13-2021 Atrial Ickk86WGYEfqjgAdverCar Phone: p Esge47vqsabpgJhjrr Health Work Phone: p-R Immxadam973 [facility] AtokaAdverCar Phone: Q-T Qdrxmoyp480 [facility]Ad[facility] Phone: QRS Fgvxozgf298 [facility] Atokawizboo Work Phone: QTc Calculation (Bazett)532 [facility] HospitalCoachMePlus Work Phone: r Tfdb47burjspsKrkog Health Work Phone: T Pzzu950xfecekkCzspk Health Work Phone: Ventricular Dgqb55LNPBifntAdverCar Phone: sinus rhythm with Premature atrial complexes Left bundle branch block Abnormal ECG No previous ECGs available [facility] HospitalUnited Capital Phone: edi, pn Incoming Ekg Results From [facility] [place] - 05/13/2021 1:30 PM EDT Sinus rhythm with Premature atrial complexes Left bundle branch block Abnormal ECG No previous ECGs availableProtestant Deaconess HospitalViZn Energy Systems Phone: [facility] HospitalVi[facility] Systems Phone: basic Metabolic Panel w/ Reflex to MGOrdered By: Latonia Burks on 94-67-0035Exbgg gap [Moles/Vol]13 mmol/L9 - 17 mmol/LMselect medical trihealth rehabilitation hospitaly [employer] Work Phone: calcium [Mass/Vol]9.4 mg/dL8.6 - 10.4 mg/dLProtestant Deaconess HospitalViZn Energy Systems Phone: chloride [Moles/Vol]102 mmol/L98 - 107 mmol/LMselect medical trihealth rehabilitation hospitaly [employer] Phone: cO2 [Moles/Vol]28 mmol/L20 - 31 mmol/LMselect medical trihealth rehabilitation hospitaly [employer] Phone: creatinine [Mass/Vol]0.94 mg/dLHigh0.50 - 0.90 mg/dL [facility] Phone: GFR >60>60 mL/minProtestant Deaconess HospitalViZn Energy Systems Phone: GFR Non- Fchkxrpf97 mL/minLow>60Pro[facility]acon[facility] HospitalViZn Energy Systems Phone: GFR/1.73 sq M.predicted MDRD (S/P/Bld) [Vol rate/Area] [facility] HospitalUnited [facility] Phone: comment on above:Average GFR for 70 or more years old: 75 mL/min/1.73sq m Chronic Kidney Disease: <60 mL/min/1.73sq m Kidney failure: <15 mL/min/1.73sq m eGFR calculated using average adult body mass. Additional eGFR calculator available at: http://www.In2Games/multiple_crcl_2012.htm GFR/1.73 sq M.predicted MDRD (S/P/Bld) [Vol rate/Area]NOT REPORTEDProtestant Deaconess HospitalViZn Energy Systems Phone: Glucose [Mass/Vol]119 mg/cJHqqw83 - 99 mg/dLProtestant Deaconess HospitalViZn Energy Systems Phone: Interpretation and review of laboratory results AbnormalProtestant Deaconess HospitalViZn Energy Systems Phone: potassium [Moles/Vol]4.0 mmol/L3.7 - 5.3 mmol/LMselect medical trihealth rehabilitation hospitaly [employer] Phone: sodium [Moles/Vol]143 mmol/L135 - 144 mmol/LMercy [employer] Work Phone: Urea nitrogen (BldV) [Mass/Vol]18 mg/dL8 - 23 mg/dL [employer] Phone: Urea nitrogen/Creatinine (Bld) [Mass ratio]NOT REPORTEDProtestant Deaconess HospitalViZn Energy Systems Phone: [facility] HospitalVi[facility] Energy Systems Phone: cBC auto differentialOrdered By: Latonia Burks on [id number] Eos #0.26[facility]acon[facility] HospitalViZn Energy Systems Phone: absolute Immature Granulocyte0.04Pro[facility]acon[facility] HospitalViZn Energy Systems Phone: absolute Lymph #3.26[facility] HospitalVi[facility] Energy Systems Phone: absolute Baker #0.84[facility]acon[facility] HospitalViZn Energy Systems Phone: basophils (Bld) [#/Vol]0.05 10*3/uLProtestant Deaconess HospitalViZn Energy Systems Phone: basophils/100 WBC (Bld)1 %0 - 2 %[employer] Phone: differential TypeNOT REPORTEDProtestant Deaconess HospitalViZn Energy Systems Phone: eosinophils/100 WBC (Bld)3 %1 - 4 %[employer] Phone: Hematocrit (Bld) [Volume fraction]36.9 %36.3 - 47.1 % [employer] Phone: Hemoglobin.gastrointestinal spec 1 Ql (Stl)11.2 g/dL Low11.9 - 15.1 g/dLProtestant Deaconess HospitalViZn Energy Systems Phone: Immature granulocytes/100 WBC (Bld)0 %0Pro[facility] Deaconess HospitalViZn Energy Systems Phone: Interpretation and review of laboratory results AbnormalProtestant Deaconess HospitalViZn Energy Systems Phone: lymphocytes/100 WBC (Bld)32 %24 - 43 %[employer] Phone: MCH (RBC) [Entitic mass]28.3 pg25.2 - 33.5 pgProtestant Deaconess HospitalRxApps Work Phone: MCHC (RBC) [Mass/Vol]30.4 g/dL28.4 - 34.8 g/dLProtestant Deaconess HospitalViZn Energy Systems Phone: [phone] (RBC) [Entitic vol]93.2 fL82.6 - 102.9 fLProtestant Deaconess HospitalViZn Energy Systems Phone: [phone]/100 WBC (Bld)8 %3 - 12 %[employer] Phone: NRBC Automated0.00.0 per 100 WBCCozy Cloud Phone: [phone] distribution width (Bld) [Ratio]13.8 %11.8 - 14.4 %[employer] Phone: [phone] EstimateNOT REPORTEDProtestant Deaconess HospitalViZn Energy Systems Phone: Platelet mean volume (Bld) [Entitic vol]9.5 fL8.1 - 13.5 fLProtestant Deaconess HospitalViZn Energy Systems Phone: [phone] (Bld) [#/Vol]310 10*3/uLCo[employer] Phone: [phone] (Bld) [#/Vol]3.96 10*6/uL3.95 - 5.11 m/iC[employer] Phone: [phone] (Bld) [#/Vol]NOT REPORTEDProtestant Deaconess HospitalViZn Energy Systems Phone: [phone] neutrophils/100 WBC (Bld)56 %36 - 65 %[employer] Phone: [phone] Absolute5.70[facility]acon[facility] HospitalViZn Energy Systems Phone: [phone] (Bld) [#/Vol]10.2 10*3/uLCo[employer] Phone: [phone] (Bld) [#/Vol]NOT REPORTEDProtestant Deaconess HospitalRxApps Work Phone: [phone] [employer] Work Phone: [phone] CHEST (2 VW)Ordered By: Latonia Burks on 05-12-2021 Senescent changes compatible with the age of the patient. No evidence of acute cardiopulmonary process.[employer] Phone: eXAMINATION: TWO XRAY VIEWS OF THE [...] the spine and visualized portions of the shoulders.[employer] Phone: edi, [facility] Incoming Radiant Results From [employer] - 05/12/2021 2:48 PM EDT EXAMINATION: TWO [...] patient. No evidence of acute cardiopulmonary process. [employer] Phone: [facility] HospitalViZn Energy Systems Phone: cardiovascular Lab Reporton [id number] Lab ReportUnDoctors Hospital [facility] MR #: [id number] Department of Physician: Bertram Keyes M.D. Division of Service Date: 08/20/2020 Cardiology Birthdate: 1940 Adult Cardiovascular Room #: [facility] [address] [place] [address] Cardiovascular Laboratory Report INDICATION: The patient is [...] signed informed consent. She was brought to cardiac cath lab technologist in a fasting state. The procedure was [...] Keyes M.D. Date Trans: (more content not included)...NormalMercy Health Tiffin HospitalTYPE AND CROSSMATCHon [id number] INTERPRETATIONANoFayette County Memorial HospitalComment on above:Performed By: #### [id number] #### [facility] [address] [facility] [place] [place] [address], [facility] INTERPRETATIONPositiveAultman Alliance Community HospitalComment on above:Performed By: #### [id number] #### [facility] [address] [facility] [place] [address], [facility] Vital Signs Date TimeVital SignValuePerforming ZstsmqoliPltosnru76-90-9433 11:06-0500Body mrsjit714.4 cmMateus Perry MD Work Phone: [phone] [place], [place] 5638611-03-2025 11:06-0500 Body mass index (BMI) [Ratio]25.5 kg/j6QatwtwoMateus Perry MD Work Phone: [phone] [place], [place] 5638611-03-2025 11:06-0500 Body .42 kgMateus Perry MD Work Phone: [phone] [place], [place] 5638610-23-2025 13:58-0400 Body elzpru418.4 cmPeyman Brown DPM Work Phone: [phone] [place], [place] [address]Tgnulzwafe10-26-3433 13:58-0400Body mass index (BMI) [Ratio]28.32 kg/l1Ttltxgjr Brown DPM Work Phone: [phone] [place], [place] [address]Lyctfxnpcc99-64-6468 13:58-0400Body tjntyd62.77 kgNicholvalentina Hensley DPM Work Phone: [phone] [place], [place] [address]Wyhryocvlx68-38-6903 13:58-0400Respiratory rate16 /minPeyman Hensley DPM Work Phone: [phone] [place], [place] [address]Jvflyopapq67-54-5060 14:36-0400Body wjvoyo098.4 cmNicholvalentina Brown DPM Work Phone: [phone] [place], [place] [address]Hfejppegbv76-16-3347 14:36-0400Body mass index (BMI) [Ratio]28.32 kg/m0Xpwgkrxu Brown DPM Work Phone: [facility] HospitalSlwoocvldl36-52-8763 14:36-0400Body wvgcol33.77 kgPeyman Hensley DPM Work Phone: [facility] HospitalMtzoilxrxf12-29-3024 14:36-0400Respiratory rate16 /minPeyman Hensley DPM Work Phone: [facility] HospitalGbrusirbdy73-14-2863 13:02-0500Body .9 cmAdajayme Ashton MD Work Phone: [facility] centerand Nlgsqu29-37-0103 13:02-0500Body mass index (BMI) [Ratio]28.13 kg/q2HurbpyVaibhav Ashton MD Work Phone: cOhioHealth Nelsonville Health CenterHvbjya83-63-2623 13:02-0500Body temperature 97.2 [degF]Vaibhav Ashton MD Work Phone: cOhio[facility] Nelsonville Health CenterXtzguz78-28-3016 13:02-0500Body .5 kgVaibhav Ashton MD Work Phone: [facility] centerand Gwnvbz29-18-2094 13:02-0500Diastolic blood mm[Hg]Vaibhav Ashton MD Work Phone: [facility] centerand [place]59-56-8623 13:02-0500Heart rate75 /min Vaibhav Ashton MD Work Phone: [facility]and Mdnzbt37-38-0449 13:02-0500Respiratory rate 16 /minAdajayme Ashton MD Work Phone: [facility] centerand Rttmqz62-00-0473 13:02-7122ZwU6% (BldA) [Mass fraction]99 %Vaibhav Ashton MD Work Phone: [facility] centerand Nnokbd86-37-8549 13:02-0500Systolic blood yxmgmcrk929 mm[Hg]Vaibhav Ashton MD Work Phone: [facility] centerEast [facility] HospitalYbnune44-05-0539 10:01-0500Body dlrdez544.4 cmNicholvalentina Hensley DPM Work Phone: [phone]12-19-2024 10:01-0500Body mass index (BMI) [Ratio]28.32 kg/t4Zcwssznz Brown DPM Work Phone: [phone] [place], [place] [address]Usfyvscqtn26-69-9049 10:010500Body .77 kgNicholas Brown DPM Work Phone: [phone]12-19-2024 10:01-0500Respiratory rate16 /minNicholvalentina Brown DPM Work Phone: [phone] [place], [place] 0383510-10-2024 10:140400Body .4 cmNicholvalentina Brown DPM Work Phone: [phone]10-10-2024 10:140400Body mass index (BMI) [Ratio]28.32 kg/x3Feplpjtm Brown DPM Work Phone: [phone] [place], [place] 0383510-10-2024 10:140400Body helaro75.77 kgNicholvalentina Hensley DPM Work Phone: [phone]10-10-2024 10:140400Respiratory rate18 /minNicdayana Hensley DPM Work Phone: [phone] [place], [place] [address]Qoiaeaqxtd71-29-1910 10:180400Body cfaabo294.86 cmMD Mateus Perry Work Phone: [phone] [place], [place] 5638608-21-2024 10:18-0400 Body mass index (BMI) [Ratio]30.2 kg/m2MD Mateus Hoy Work Phone: [phone] [place], [place] 5638608-21-2024 10:180400 Body sivskyhbeeg38.8 [degF]MD Mateus Perry Work Phone: [phone] [place], [place] 5638608-21-2024 10:18-0400 Body ohkeec44.03 kgMD Mateus Perry Work Phone: [phone] [place], [place] 5638608-21-2024 10:18-0400 Diastolic blood fuabbbgu36 mm[Hg]MD Mateus Perry Work Phone: [phone] [place], [place] 5638608-21-2024 10:18-0400 Heart rate80 /minMD Mateus Maciely Work Phone: [phone]08-21-2024 10:18-0400 Respiratory rate16 /minMD Mateus Hoy Work Phone: [phone])[facility]-[address] [place], [place] 5638608-21-2024 10:18-0400 SaO2% (BldA) [Mass fraction]98 %MD Mateus Perry Work Phone: [phone] [place], [place] 7859508-21-2024 10:18-0400 Systolic blood avriwskx534 mm[Hg]MD Mateus Perry Work Phone: [phone] [place], [place] 7859508-14-2024 11:13-0400 Body glsvow170.86 cmMD Mateus Hoy Work Phone: [phone] [place], [place] 7859508-14-2024 11:13-0400 Body mass index (BMI) [Ratio]36.3 kg/m2MD Mateus Hoy Work Phone: [phone])[address] [place], [place] 7859508-14-2024 11:13-0400 Body hkepqr32.64 kgMD Mateus Hoy Work Phone: [phone] [place], [place] 7859508-14-2024 11:06-0400 Body .8 [degF]MD Mateus Perry Work Phone: [phone] [place], [place] 7859508-14-2024 11:06-0400 Diastolic blood yzpnvbwu54 mm[Hg]MD Mateus Perry Work Phone: [phone] [place], [place] 7859508-14-2024 11:06-0400 Heart rate97 /minMD Mateus Perry Work Phone: [phone])[address] [place], [place] 7859508-14-2024 11:06-0400 Respiratory rate20 /minMD Uribelas Hoy Work Phone: [phone] [place], [place] 7859508-14-2024 11:06-0400 Systolic blood yqiwtrmd495 mm[Hg]MD Mateus Perry Work Phone: [phone] [place], [place] 7859507-31-2024 10:30-0400 Body qcjaou581.86 cmMD Mateus Hoy Work Phone: [phone] [place], [place] 7859507-31-2024 10:30-0400 Body mass index (BMI) [Ratio]36.3 kg/m2MD Mateus Hoy Work Phone: [phone])[address] [place], [place] 7859507-31-2024 10:30-0400 Body fjuabb54.64 kgMD Mateus Hoy Work Phone: [phone] [place], [place] 7859507-16-2024 09:51-0400 Body ncutcx709.86 cmMD Mateus Hoy Work Phone: [phone] [place], [place] 7859507-16-2024 09:51-0400 Body mass index (BMI) [Ratio]36.3 kg/m2MD Mateus Hoy Work Phone: [phone])[address] [place], [place] 7859507-16-2024 09:51-0400 Body .64 kgMD Mateus Hoy Work Phone: [phone])[address] [place], [place] 7859507-16-2024 09:36-0400 Body jiipdtdzesn52.3 [degF]MD Mateus Perry Work Phone: [phone] [place], [place] 7859507-16-2024 09:36-0400 Diastolic blood eivtyfpd06 mm[Hg]MD Mateus Perry Work Phone: [phone])[address] [place], [place] 7859507-16-2024 09:36-0400 Heart rate86 /minMD Mateus Hoy Work Phone: [phone])[address] [place], [place] 7859507-16-2024 09:36-0400 Respiratory rate18 /minMD Mateus Hoy Work Phone: [phone])[address] [place], [place] 7859507-16-2024 09:36-0400 Systolic blood qyxpahbd719 mm[Hg]MD Mateus Perry Work Phone: [phone] [place], [place] 7859510-10-2023 15:29-0400 Body xzzieh042.9 cmMinantonella Farris PA-C Work Phone: [facility]10-10-2023 15:29-0400Body temperature 97.39 [degF]Winnie Kaleigh PA-C Work Phone: [facility]10-10-2023 15:29-0400Body wezjcw99.64 kgMindy Kaleigh PA-C Work Phone: [facility]10-10-2023 15:29-0400Diastolic blood psvyymdj48 mm[Hg]Winnie Kaleigh PA-C Work Phone: [facility]10-10-2023 15:29-0400Heart rate72 /min Winnie Kaleigh PA-C Work Phone: [facility]10-10-2023 15:29-0400Respiratory rate 16 /minMindy Kaleigh PA-C Work Phone: [facility]10-10-2023 15:29-7554CpN3% (BldA) [Mass fraction]96 %Winnie Kaleigh PA-C Work Phone: [facility]10-10-2023 15:29-0400Systolic blood mm[Hg]Winnie Kaleigh PA-C Work Phone: [facility]09-21-2023 08:45-0400Body rabczl502.94 cmMamaximo Gonzales Other [employer] [facility] Other 09-21-2023 08:45-0400Body mass index (BMI) [Ratio] 34.57 kg/d7QnsrycvChristiano Gonzales Other [employer] Other 09-21-2023 08:45-0400Body hxjrucsqzxm64.8 [degF] Christiano Gonzales Other [employer] [facility] Other 09-21-2023 08:45-0400Body bvcenc57.01 kgMamaximo Gonzales Other [employer] [facility] Other 09-21-2023 08:45-0400Diastolic blood mm[Hg] Christiano Gonzales Other [employer] [facility] Other 09-21-2023 08:45-1888UiS9% (BldA) [Mass fraction]93 % Christiano Gonzales Other [employer] [facility] Other 09-21-2023 08:45-0400Systolic blood praziqnx598 mm[Hg] Christiano Gonzales Other [employer] [facility] Other 06-29-2023 08:45-0400Body tnevii432.94 cmMillie Storm Other [employer] [facility] Other 06-29-2023 08:45-0400Body mass index (BMI) [Ratio] 34.57 kg/p5ByxehbMillie Storm Other [employer] [facility] Other 06-29-2023 08:45-0400Body ziecsmesqbg21.8 [degF]Millie Storm Other [employer] [facility] [employer] [facility] Other 06-29-2023 08:45-0400Body oxsfhf57.01 kgMillie Storm Other [facility] Other 06-29-2023 08:45-0400Diastolic blood oncygowx78 mm[Hg] Millie Storm Other [employer] [facility] Other 06-29-2023 08:45-3110IjK0% (BldA) [Mass fraction]97 % Millie Storm Other [employer] [facility] Other 06-29-2023 08:45-0400Systolic blood pkergatf449 mm[Hg] Millie Storm Other [employer] [facility] Other 06-06-2023 10:19-0400Body uooyvx303.9 cmWallace Stone MD Work Phone: [facility]06-06-2023 10:19-0400Body temperature 97.39 [degF]Wallace Stone MD Work Phone: [facility]06-06-2023 10:19-0400Body adfvfg03.46 kgWallace Stone MD Work Phone: [facility]06-06-2023 10:19-0400Diastolic blood eeheutva92 mm[Hg]Wallace Stone MD Work Phone: [facility]06-06-2023 10:19-0400Heart mtrj162 /Kieran Stone MD Work Phone: [facility]06-06-2023 10:19-0400Respiratory rate 16 /Kieran Stone MD Work Phone: [facility]06-06-2023 10:19-0737QdY2% (BldA) [Mass fraction]95 %Wallace Stone MD Work Phone: [facility]06-06-2023 10:19-0400Systolic blood idyitcha461 mm[Hg]Wallace Stone MD Work Phone: [facility]03-29-2023 14:00-0400Body uqrfsx134.94 cmMillie Jonesevelia Other [facility] [employer] Other 03-29-2023 14:00-0400Body mass index (BMI) [Ratio] 35.71 kg/g0ZcspjqMillie Storm Other [employer] [facility] Other 03-29-2023 14:00-0400Body vbxclukucix04.6 [degF]Millie Storm Other [facility] Other 03-29-2023 14:00-0400Body kvqszu79.73 kgMillie Storm Other [employer] [facility] Other 03-29-2023 14:00-0400Diastolic blood agzhttyp16 mm[Hg] Millie Storm Other [facility] Other 03-29-2023 14:00-4883MlS4% (BldA) [Mass fraction]93 % Millie Storm Other [employer] [facility] Other 03-29-2023 14:00-0400Systolic blood owskarrc578 mm[Hg] Millie Storm Other [employer] [facility] [employer] [facility] Other 03-21-2023 11:53-0400Diastolic blood byeudiak38 mm[Hg] MD Mateus Perry Work Phone: [facility]03-21-2023 11:53-0400 Heart rate67 /minMD Mateus Perry Work Phone: [facility]03-21-2023 11:53-0400 Respiratory rate16 /minMD Mateus Perry Work Phone: [facility]03-21-2023 11:53-0400 SaO2% (BldA) [Mass fraction]94 %MD Mateus Perry Work Phone: [facility]03-21-2023 11:53-0400 Systolic blood rwxbkkru001 mm[Hg]MD Mateus Moscoso Phone: [facility]03-21-2023 09:13-0400 Body uqffjy358.94 cmMD Mateus Perry Work Phone: [facility]03-21-2023 09:13-0400 Body yyipcb09.64 kgMD Mateus Perry Work Phone: [facility]03-15-2023 11:00-0400 Body eyoplh180.94 cmChristiano Gonzales Other [employer] [facility] Other 03-15-2023 11:00-0400Body oymklafnviq92.8 [degF] Christiano Gonzales Other [employer] [facility] Other 03-15-2023 11:00-0400Diastolic blood arlbtpvm07 mm[Hg] Christiano Gonzales Other [employer] [facility] Other 03-15-2023 11:00-2691NcZ2% (BldA) [Mass fraction]96 % Christiano Gonzales Other [facility] Other 03-15-2023 11:00-0400Systolic blood zunthill713 mm[Hg] Christiano Gonzales Other [facility] Other 03-01-2023 13:44-0500Body ddhvvy121.9 cmWallace Stone MD Work Phone: [facility]03-01-2023 13:44-0500Body temperature 97.11 [degF]Wallace Stone MD Work Phone: [facility]03-01-2023 13:44-0500Body .73 kgWallace Stone MD Work Phone: [facility]03-01-2023 13:44-0500Diastolic blood okpxreqk54 mm[Hg]Wallace Stone MD Work Phone: [facility]03-01-2023 13:44-0500Heart rate66 /min Wallace Stone MD Work Phone: [phone])[phone]03-01-2023 13:44-0500Respiratory rate 18 /minWallace Stone MD Work Phone: [phone]03-01-2023 13:44-9456BgJ4% (BldA) [Mass fraction]100 %Wallace Stone MD Work Phone: 1(411)[address] [place], [place] [address]2703-01-2023 13:44-0500Systolic blood svkeuprf992 mm[Hg]Wallace Stone MD Work Phone: 1(083)[address] [place], [place] 4031001-12-2023 11:24-0500Body pkhxia672.9 cmWallace Stone MD Work Phone: 1(153)[facility] [place], [place] [address]2701-12-2023 11:24-0500Body temperature 97.81 [degF]Wallace Stone MD Work Phone: 1(884)[address] [place], [place] 4031001-12-2023 11:24-0500Body xubift16.82 kgWallace Stone MD Work Phone: [phone])[address] [place], [place] [address]01-12-2023 11:24-0500Diastolic blood vgsbijdp87 mm[Hg]Wallace Stone MD Work Phone: 1(631)[address] [place], [place] [address]2701-12-2023 11:24-0500Heart rate70 /min Wallace Stone MD Work Phone: 1(657)069-64[facility]01-12-2023 11:24-0500Respiratory rate 16 /minWallace Stone MD Work Phone: [phone]([phone]01-12-2023 11:24-8350WoC0% (BldA) [Mass fraction]94 %Wallace Stone MD Work Phone: [facility]01-12-2023 11:24-0500Systolic blood xsdimdif006 mm[Hg]Wallace Stone MD Work Phone: [facility]12-30-2022 15:06-0500Blood Pressure LocationMichael NILL [facility] Vohwmjgs40-93-2613 15:06-0500Diastolic blood koigihgy05 mm[Hg]Iliana NILL [facility] Zpmaxdph17-74-6415 15:06-0500Heart rate 68 /minMichael NILL [facility] Vzpiuqoz20-93-5300 15:06-0500 Respiratory rate16 /minMichael NILL [facility]12-30-2022 15:06-0500Systolic blood nbudngph938 mm[Hg]Iliana NILL [facility] Pgpqkxwt53-77-3791 12:00-9189NvC9% (BldA) [Mass fraction]95 %Emma Plunkett MD Work Phone: [facility]10-18-2022 11:50-0400Body sxqhwkereoz04.3 [degF]Emma Plunkett MD Work Phone: [facility]10-18-2022 11:50-0400Diastolic blood zwglqubw78 mm[Hg]Emma Plunkett MD Work Phone: [facility]10-18-2022 11:50-0400Heart rate69 /Terese Plunkett MD Work Phone: [facility]10-18-2022 11:50-0400 Respiratory rate16 /Terese Plunkett MD Work Phone: [facility]10-18-2022 11:50-0400Systolic blood mm[Hg]Emma Plunkett MD Work Phone: [facility]10-18-2022 07:36-0400Body blwers311.9 cmCjameel Plunkett MD Work Phone: [facility]10-18-2022 07:36-0400Body mass index (BMI) [Ratio]34.58 kg/f7QacdzntfhmsEmma Plunkett MD Work Phone: [facility]10-18-2022 07:36-0400Body .01 kgEmma Plunkett MD Work Phone: [facility]04-04-2022 15:45-0400Body [degF]Emma Plunkett MD Work Phone: [facility]Dscbfk26-98-9086 15:45-0400Diastolic blood uahtnabb57 mm[Hg]Emma Plunkett MD Work Phone: [facility]woodsKkhutf73-63-7250 15:45-0400Heart rate65 /min Emma Plunkett MD Work Phone: [facility]woodsQdcqvp96-86-8068 15:45-0400Respiratory rate14 /minEmma Plunkett MD Work Phone: [facility]woodsQpyjqu62-17-0793 15:45-0154LvF6% (BldA) [Mass fraction]94 %Emma Plunkett MD Work Phone: [place] [address]Lbawly59-71-8257 15:45-0400Systolic blood hiniskee918 mm[Hg]Emma Plunkett MD Work Phone: [phone] [address]Ydgirp27-17-0397 09:46-0400Body ojnufr451.9 cm Emma Plunkett MD Work Phone: [facility]woodsJeyexp35-67-5389 09:46-0400Body mass index (BMI) [Ratio]36.09 kg/t5UtloexkddgtEmma Plunkett MD Work Phone: [facility]woodsXurkos01-04-4684 09:46-0400Body jkkuzd64.64 kg Emma Plunkett MD Work Phone: [facility]woodsNiunvo10-26-3473 14:46-0400Body vlmiak500.[address]03-28-2022 14:46-0400Body mass index (BMI) [Ratio]36.09 kg/m2 [address]03-28-2022 14:46-0400Body hceumcbmvpy80.4 [degF][address]03-28-2022 14:46-0400Body tvuqlo38.[address]03-28-2022 14:46-0400Diastolic blood mm[Hg][address]03-28-2022 14:46-0400Heart rate62 /minSt[address]03-28-2022 14:46-0400Respiratory rate20 /minStv[address]Xvzfri56-26-4120 14:46-3849ZhX0% (BldA) [Mass fraction]97 %[address]03-28-2022 14:46-0400Systolic blood alrtawwg222 mm[Hg][address]10-05-2021 10:14-0400Body qfmyfouvtgk97.81 [degF]Kin Abarca MD Work Phone: [facility] Work Phone: 1(313) 743-484810-05-2021 10:14-0400Diastolic blood jhyobawc00 mm[Hg] Kin Abarca MD Work Phone: [facility] Work Phone: 1(493) 488-549410-05-2021 10:14-0400Heart rate61 /Rosalva Abarca MD Work Phone: [facility] Work Phone: 1(179) 894-213110-05-2021 10:14-0400Respiratory rate14 /Rosalva Abarca MD Work Phone: [facility] [employer] Work Phone: 1(423) 262-826410-05-2021 10:14-2173FvQ9% (BldA) [Mass fraction]96 % Kin Abarca MD Work Phone: [facility] [employer] Work Phone: 1(376) 935-421810-05-2021 10:14-0400Systolic blood bcgpidfs061 mm[Hg] Kin Abarca MD Work Phone: [facility] [employer] Work Phone: 1(406) 376-206610-05-2021 08:24-0400Body fulmnl553.9 Dharmesh Abarca MD Work Phone: [facility] [employer] Work Phone: 1(244) 215-482610-05-2021 08:24-0400Body mass index (BMI) [Ratio] 34.96 kg/m2Kin Abarca MD Work Phone: [facility] [employer] Work Phone: 1(157) 127-918210-05-2021 08:24-0400Body .92 kgKin Abarca MD Work Phone: [facility] [employer] Work Phone: 1(258) 679-388309-01-2021 12:53-0400Body vxkyuz077.9 cmStvz [facility] [employer] Work Phone: 1(390) 875-453809-01-2021 12:53-0400Body mass index (BMI) [Ratio] 35.52 kg/m2Stvz [facility] [employer] Work Phone: 1(260) 793-778509-01-2021 12:53-0400Body knnsmqdygkn82.8 [degF]Stvz 1 [facility] [employer] Work Phone: 1(567) 443-139609-01-2021 12:53-0400Body vjehpk15.28 kgStvz [facility] [employer] Work Phone: 1(934) 119-162009-01-2021 12:53-0400Diastolic blood xffzaofx77 mm[Hg] Stvz [facility] [employer] Work Phone: 1(216) 732-110509-01-2021 12:53-0400Heart rate57 /minStvz [facility] [employer] Work Phone: 1(191) 730-609209-01-2021 12:53-0400Respiratory rate18 /minStvz 1 [facility] [employer] Work Phone: 1(463) 702-296809-01-2021 12:53-0229XcX2% (BldA) [Mass fraction]96 % Stvz [facility] [employer] Work Phone: 1(885) 959-604609-01-2021 12:53-0400Systolic blood mm[Hg] Stvz [facility] [employer] Work Phone: Encounters Encounter DateEncounter TypeCare ProviderFacilityStart: 07-18-2025 End: 09-12-9349oohmgouiauBfhnigaJefferson Farmer MDFacility: Lindy Start: 59-74-7437xqmxhtgwhkXNZS [facility]tart: 07-14-2025 End: 26-19-6624flohjehrgsFgalqmy M Hoy MD Work Phone: -[facility] BellevueStart: 07-14-2025 End: 22-50-6277Yzjdyuh encounter procedureJujudy Cutler DO-[facility] [employer] Work Phone: Start: 07-03-2025 End: 67-15-0587Pkwixm Pavithra Hensley DPM Work Phone: noms CI PODIATRYStart: 07-03-2025 End: 68-21-3435Upsmbi Pavithra Hensley DPM Work Phone: [facility] CI PODIATRYStart: 07-03-2025 End: 54-78-4318Qxgixo outpatient visit 10 minutesNicdayana Hensley DPM Work Phone: noms CI PODIATRYComment on above:Neoplasm of uncertain behavior of skin (Primary Dx); Diabetes mellitus due to underlying condition with diabetic polyneuropathy, 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 contemporary or 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 (HCC); Pain due to onychomycosis of toenails of both feet; Venous insufficiency; Acquired deformity of left toeStart: 07-03-2025 End: 89-68-7728uumelxehacGPGJBFGP A BROWNNot AvailableStart: 06-18-2025 ambulatoryBLAIR GRUBBUniLima City Hospitaltart: 06-03-2025 End: 95-66-7119Lzgjckr encounter procedureChristiano Mcdonnell MD-Lab [address] Work Phone: Start: 06-03-2025 End: 79-29-3019xhpmozrspzYlcvilj M Hoy MD Work Phone: [facility] Work Phone: Start: 51-21-7944jxzychyywnJNZMWCleveland Clinic Lutheran Hospitaltart: 03-04-2025 End: 99-74-8677baxezpmyehVzyexhg MorrowFacility:[facility] Hospitaltart: 82-91-0531jefjdbdtakWHHZSumma Health Start: 01-30-2025 End: 92-37-2195fbntttluyxLIKRJVYH A BROWNNot AvailableStart: 01-21-2025 End: 20-16-5700bsgufbzfgtGVEXMartin Memorial Hospitaltart: 55-15-6195dvhpbwiifiVNBZMartin Memorial Hospitaltart: 01-07-2025 End: 62-22-3484Brbiamp encounter Hardik Perry MD Work Phone: [facility]-X[address] Work Phone: Start: 01-07-2025 End: 52-33-1003wguznnnezjEusvizj M Hoy MD Work Phone: [facility] Work Phone: Start: 90-79-0645sgahflsxlpCJXTBarney Children's Medical Centertart: 12-10-2024 End: 27-09-1386Udwiyvg encounter procedureMateus Perry MD Work Phone: [facility]-Lab [address] Work Phone: Start: 12-10-2024 End: 23-02-8525xkxmhcratzJmshdgg M Hoy MD Work Phone: [facility] Work Phone: Start: 11-21-2024 End: 24-29-0629Czquqh outpatient visit 15 minutesNicdayana Hensley DPM Work Phone: noms CI PODIATRYComment on above:Neoplasm of uncertain behavior of skin (Primary Dx); Diabetes mellitus due to underlying condition with diabetic polyneuropathy, 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 contemporary or 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 ([facility]); Pain due to onychomycosis of toenails of both feet; Venous insufficiency; 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 ([facility])Start: 11-21-2024 End: 60-14-9605fltteyssjxXVWVYPAN A BROWNNot AvailableStart: 11-21-2024 End: 17-97-5246Kqpfhh flowsMadeleine Hensley DPM Work Phone: [facility] CI PODIATRYStart: 11-21-2024 End: 17-86-7331Payrbpricardo Hensley DPM Work Phone: [facility] CI PODIATRYStart: 36-19-5934wixooitgrzTJHKBrown Memorial Hospitaltart: 71-32-4208psqjkzvciuMLTGMary Rutan Hospitaltart: 11-05-2024 End: 82-00-3348xtdvmzxbmkCDSTBarney Children's Medical Centertart: 10-29-2024 End: 19-57-4621Ecdxowq encounter Hardik Perry MD Work Phone: [facility]-Lab [address] Work Phone: Start: 10-29-2024 End: 65-37-5241jqrawfrfvrLqkfupl M Hoy MD Work Phone: [facility] Work Phone: Start: 56-03-2042inxqsmtzdySLON [facility] Hospitaltart: 10-09-2024 End: 15-98-1424Eevxgmxls encounterAdajayme Ashton MD Work Phone: Hematology/OncologyStart: 10-08-2024 End: 25-61-4446Virerx outpatient visit 25 minutesAdarsdarian Ashton MD Work Phone: Hematology/OncologyComment on above: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, estrogen receptor positive (HCC) (Primary Dx); Stage 3a chronic kidney disease (HCC)Start: 10-08-2024 End: 95-85-5376bhultlnqiqPVQSPWZ M HOYFacility:[facility] Centertart: 10-04-2024 End: 28-77-3732Xydqgiofe encounterFelicelen Sandoval RNHematology/OncologyComment on above:Patient Question; Appointment; OrdersStart: 09-24-2024 End: 61-98-4824ywfutpjfcjWIMLMartin Memorial Hospitaltart: 94-76-6664qopuoxyynvBAPXMartin Memorial Hospitaltart: 87-56-1210jukogpdnwkQPMZMartin Memorial Hospitaltart: 11-30-8127jmoypjrxezMMYJMartin Memorial Hospitaltart: 05-51-8683Kgxatkqde for preprocedural cardiovascular examinationPAOhioHealth Riverside Methodist Hospitaltart: 99-49-8685Mqr-patient / Non-visit Mateus Perry MD Work Phone: [facility] Work Phone: Start: 07-47-8009ddgltzptbwQPQR [facility] Hospitaltart: 08-29-2024 End: 33-70-3541Qvdpil Pavithra Hensley DPM Work Phone: NOMS CI PODIATRYStart: 08-29-2024 End: 47-36-9864Rsbqzgricardo Hensley DPM Work Phone: [facility] CI PODIATRYStart: 08-29-2024 End: 98-79-2037Qaedbt outpatient visit 15 minutesPeyman Hensley DPM Work Phone: noms CI PODIATRYComment on above: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) (Primary Dx); Diabetes mellitus due to underlying condition with diabetic polyneuropathy, 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 detention insulin use (CMS/HCC); Pain due to onychomycosis of toenails of both feet; Venous insufficiency; Neoplasm of uncertain behavior of skinStart: 08-29-2024 End: 18-48-5950vlfftadlkfZWCXJHSH A BROWNNot AvailableStart: 08-27-2024 End: 91-12-8179kglegwzrgeCUSPCleveland Clinic South Pointe Hospitaltart: 61-15-1512cpgewbygibZXXICleveland Clinic South Pointe Hospitaltart: 08-12-2024 End: 05-37-2344zljfcbiebtBNQVCleveland Clinic South Pointe Hospitaltart: 06-20-2024 End: 85-85-4344Dhzdmn Pavithra Hensley DPM Work Phone: [facility] CI PODIATRYStart: 06-20-2024 End: 73-56-6001Fvnxez Pavithra Hensley DPM Work Phone: [facility] CI PODIATRYStart: 06-20-2024 End: 46-21-7426Vibdoz outpatient new 30 minutesPeyman Hensley DPM Work Phone: noms CI PODIATRYComment on above:Hav (hallux abducto valgus), left (Primary Dx); Venous insufficiency; Acquired deformity of left toe; 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); Diabetes mellitus due to underlying condition with diabetic polyneuropathy, 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 contemporary or 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 (CMS/HCC); Pain due to onychomycosis of toenails of both feetStart: 05-01-2024 End: 09-32-1588mnnkzweresXZ Mateus M Hoy Work Phone: [facility] Work Phone: Start: 05-01-2024 End: 88-24-6692Uvdfded encounter procedureMD Mateus Hoy Work Phone: [facility] Vascular Surgery Work Phone: Start: 04-24-2024 End: 71-24-7837mupxkqdnjaFA Mateus M Hoy Work Phone: [facility] Work Phone: Start: 04-24-2024 End: 49-20-8469Okjtueckik RecurringMD Mateus Hoy Work Phone: [facility]-Wound Care [place] Work Phone: Start: 04-09-2024 End: 53-84-8339kzrahzwvmrTZ Mateus M Hoy Work Phone: [facility] Work Phone: Start: 04-09-2024 End: 78-76-4838Fggvtwl encounter procedureMD Mateus Hoy Work Phone: [facility]-Ultrasound [place] Work Phone: Start: 49-21-4701Invesqotlo RecurringMD Mateus Hoy Work Phone: [facility]-Wound Care [place] Work Phone: Start: 06-20-2023 End: 74-48-1843imhsgfpblcQcndw M Musser PA-C Work Phone: Hematology/OncologyComment on above: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, estrogen receptor positive (HCC) (Primary Dx); Stage 3a chronic kidney disease (HCC)Start: 06-20-2023 End: 07-25-5233Mkhobns encounter procedureWinnie Farris PA-C Work Phone: SANDUSKYStart: 06-01-2023 End: 44-57-9116ennyqrdsexVwzfrti [employer] Other [employer] Other Start: 01-56-4186Tvmyhj outpatient visit 15 minutes Christiano MarreroOscar Vascular SurgeryStart: 04-06-2023 End: 92-08-8706jenlwfjzcoYAJIPEV M HORiverside Methodist Hospitalmodesta [facility] Centertart: 03-09-2023 End: 18-05-3021xgutirozceQsjphh Ruttino Other [employer] Other Start: 71-29-3830Fqzcang encounter procedureJackie RuttinoFPG Vascular SurgeryStart: 03-06-2023 End: 67-31-2184dhnndyvbuhVRWHQQCWXED LUTMAN [facility] Start: 02-14-2023 End: 75-20-9112mfqiegwyqkWmzapDeyvi Stone MD Work Phone: Hematology/OncologyComment on above: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, estrogen receptor positive (HCC) (Primary Dx); Rash; Other eczema; Stage 3a chronic kidney disease (HCC)Start: 02-14-2023 End: 82-75-4833Gpjtqyu encounter Gita Stone MD Work Phone: SANDUSKYStart: 01-19-2023 End: 50-85-7764xtfowmvijiFV DOUGLAS HOY .Facility:Z5Myiuu: 12-08-2022 End: 45-97-4666ahxdlpemkoSeufjn Ruttino Other [employer] [facility] [employer] [facility] Other Start: 23-13-1803Lzhfdfioe encounterJackie RuttinoFPG Vascular SurgeryStart: 12-07-2022 End: 61-57-3845lgsumjiyqsXwbkoz Rutt[employer] Other [employer] Other Start: 53-07-3358Jgiprub encounter procedureJackie RuttinoFPG Vascular SurgeryStart: 11-29-2022 End: 92-76-1890Bkzedepkg to same day surgery center Mateus Perry Work Phone: [facility]-Interventional Radiology Work Phone: Start: 11-29-2022 End: 35-47-7045tkourxxcqvRS Mateus Perry Work Phone: [facility] Work Phone: Start: 11-24-2022 End: 55-17-4491whvqzavajhIYFQUJ [facility] Hospitaltart: 11-24-2022 End: 19-09-6963Lecvsisrqn hospital visit by physicianMateus Perry MD Work Phone: stvZ ND LAB DOCTORStart: 11-23-2022 End: 29-49-7356rqziohnbmsEiuqbvt [place] Other [employer] Other Start: 14-05-7755Jsfxcw outpatient new 60 minutes Christiano GonzalesFPG Vascular SurgeryStart: 11-22-2022 End: 93-74-9348avhdvfanqnWuuteca R NILLFacility:NICK BellevueStart: 11-16-2022 End: 60-77-6282hmgzxdrsxoBO MATEUS PERRY .Facility:Z2Iggbg: 11-09-2022 End: 16-84-7067mgoxacoxrlKpgtk Karamlou MD Work Phone: Hematology/OncologyComment on above: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, estrogen receptor positive (HCC) (Primary Dx); Claudication in peripheral vascular disease (HCC)Start: 11-09-2022 End: 45-68-9535Wkbkmqd encounter procedureWallace Stone MD Work Phone: SANDUSKYStart: 36-19-3684Vtmvxzxui encounterWallace Stone MD Work Phone: Cancer Appts MCComment on above:Referral Information (Vascular Consult)Start: 11-08-2022 End: 96-80-5250vwbpypswwdUuowndy R NILLFacility:[facility] Hospitaltart: 11-08-2022 End: 07-27-5695Gjcujqq encounter procedureMichael R NILL General Surgery Nill/[employer] Start: 11-04-2022 End: 27-14-1217omjaxtjjzxKywpqra R NILLFacility:[facility] Hospitaltart: 11-04-2022 End: 58-35-5822Tcxhigg encounter procedureMichael R NILL General Surgery Nill/[employer] Start: 11-02-2022 End: 45-65-4327licuantlplRN MATEUS PERRY .Facility:B5Vlkfz: 10-25-2022 End: 59-24-2287hrqufbdkxrAkxijax R NILLFacility:[facility] Centerrt: 10-25-2022 End: 01-29-7635Thinfoo encounter procedureMichael R NILL General Surgery Nill/[employer] Start: 10-19-2022 End: 22-96-6216vhpbevmhndJN ILIANA GAGNON .Facility:S6Mnxxz: 90-65-1241yxhzyedtev DR ILIANA GAGNON .Facility:E5Zomzn: 92-98-3356Gcvmcupnr for preprocedural laboratory examinationDR ILIANA BatresSelect Medical [facility] Hospital - Dublintart: 10-11-2022 End: 44-89-9013wqktkrntrvYJ MICHAEL NILL .Facility:J0Vtfhe: 10-11-2022 End: 22-83-4149Cnlcwqivj for preprocedural laboratory examinationDR ILIANA GAGNON .Facility:L3Uzkez: 09-30-2022 End: 64-20-1820yofhnitolpJH DOUGLAS HOY .Facility:M5Wnjqy: 58-03-1273Auetujody encounterHeavenly Wilkerson RN Work Phone: Hematology/OncologyComment on above:Care Coordination (Surgery update)Start: 09-22-2022 End: 30-84-1369dtsganvzpyJzotbDeyvi Stone MD Work Phone: Hematology/OncologyComment on above: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, estrogen receptor positive (HCC) (Primary Dx)Start: 09-22-2022 End: 70-87-2060Jsfvpjz encounter Gita Stone MD Work Phone: SANDUSKYComment on above:Malignant neoplasm of upper- outer quadrant of right breast in female, estrogen receptor positive (HCC) (Primary Dx)Start: 09-21-2022 End: 91-43-6046avjrjwlgpqQQ MATEUS HOY .Facility:F3Xltam: 33-91-1396Sbbhc abstractKrishna Stone MD Work Phone: Hematology/OncologyStart: 09-16-2022 End: 94-81-1849kbhtfntixrEO DOCTOR MISCFacility:Q4Vigyh: 09-09-2022 End: 63-93-2008nmkxteexwwUsvpsyt R NILLFacility: BellevueStart: 09-09-2022 End: 20-03-4034Bscqdlx encounter procedureMichael R NILL General Surgery Nill/Said [place] Start: 22-95-9402eeiumylsjvWT MATEUS HOY .Facility:H1 Start: 08-23-2022 End: 83-62-4709xrzeqxptfmSJ MATEUS HOY .Facility:V1Tgfla: 73-22-2451lcqvkfdgbk Iliana R NILLFacility: BellevueStart: 08-19-2022 End: 01-85-0597nusvcervdpWM MATEUS HOY .Facility:L7Idrzp: 08-14-2022 End: 26-37-7152mpjtqdmlsoFO MATEUS HOY .Facility:Q1Kvvwf: 08-11-2022 End: 15-62-6035dgpqcbkdfhDQ MATEUS HOY .Facility:L2Qljtf: 08-08-2022 End: 79-20-9043fgtyvyreeiCZ MATEUS HOY .Facility:N2Kdceb: 08-02-2022 End: 07-28-4667mtjdqocaorYQ MATEUS HOY .Facility:C8Sdeug: 07-19-2022 End: 04-80-6678nssxhwtmukRP MATEUS HOY .Facility:M3Mfnut: 06-28-2022 End: 05-78-3432Wrcbtypcxa hospital visit by Shanti Garza MD Work Phone: stvz ORComment on above:Vaginal dysplasiaStart: 06-22-2022 End: 34-84-1912bngdjaqxvlGJYPEXC TUCKERFacility:K7Dhfaq: 67-99-1608vlihnuvgmj SONALI TUCKERFacility:K6Nutyu: 04-12-2022 End: 26-86-0186vdwlxxwtwuOWZYFJA TUCKERFacility:I7Jowtr: 03-17-2022 End: 52-95-3782ppincfgapnKB MATEUS HOY .Facility:F3Tlxrl: 03-16-2022 End: 99-81-1191gszvryevtzMU MATEUS HOY .Facility:K0Iqbst: 03-15-2022 End: 15-79-4661omtqhijjtcVJZTFPO TUCKERFacility:X3Ftnji: 02-15-2022 End: 14-21-2716uhpuglnaorGJCUKMR TUCKERFacility:C8Xgwbn: 02-09-2022 End: 54-99-1555hxzuvbrduiDKFOWZK TUCKERFacility:R7Hujnr: 12-13-2021 End: 21-72-9577Cvtgbouckf hospital visit by Shanti Garza MD Work Phone: stvz ORComment on above:Post-operative state (Primary Dx)Start: 12-06-2021 End: 24-93-2537Kjqbbbdpks hospital visit by physicianSyao [facility] RadiologyComment on above:ArrivedStart: 12-06-2021 End: 18-41-3229Gmikpfj encounter statusStvsandra 2STVZ Pre-Admit TestingStart: 12-06-2021 End: 08-87-1690Cjsezczvfv hospital visit by physicianSruiz Hendrix 2STVZ Pre-Admit TestingComment on above:Pre-op chest examStart: 06-15-2021 End: 29-96-4695Zbvltfpjai hospital visit by Wallace Abarca MD Work Phone: stVZ ORStart: 05-12-2021 End: 00-79-9762Ycejgxzcem hospital visit by Francisco Hendrix [facility] RadiologyComment on above:ArrivedStart: 05-12-2021 End: 79-02-6652Yfjdoci encounter statusStvz 1STVZ Pre-Admit TestingStart: 05-12-2021 End: 32-06-0027Lgsrlmdqvx hospital visit by physicianSruiz Hendrix 1STVZ Pre-Admit TestingComment on above:Pre-op chest exam Procedures DateProcedureProcedure DetailPerforming ClinicianStart: 35-57-7874J-ray of lumbar spine, two or three viewsMateus Perry MD Work Phone: Start: 02-16-8868Zcvag x-ray of pelvis and lower extremityMateus Perry MD Work Phone: [phone]-art: 99-70-7294W-ray of both knees, two viewsMateus Perry MD Work Phone: Start: 58-96-1506Wbtms brachial pressure indexMD Mateus Hoy Work Phone: [phone]: 49-52-9502Ihhyfa scan of lower limb veinsMD Mateus Hoy Work Phone: Start: 03-00-8279MdonnonvqzIT Mateus Hoy Work Phone: [phone]-art: 52-75-8972Hyjsqmcdxf of right breastMichael NILL Start: 93-77-2193Ttlhkbp blood reagent stripChristopher Kayla CARDONA Work Phone: Start: 77-24-5838XUOVSJF, IONIC (POC)Emma Garza MD Work Phone: Start: 28-63-3915Itzgbope [Moles/volume] in Serum or PlasmaChosmintopher Kayla CARDONA Work Phone: Start: 45-86-1077JLGYEPXAYG W/GFR POINT OF CARE Emma Garza MD Work Phone: Start: 19-27-8020Xxth bld gluc mntr dev cleared fda spec home useChosmintopher Kayla CARDONA Work Phone: Start: 39-96-0745XIOMBR ACID,POINT OF CAREEmma Garza MD Work Phone: Start: 67-25-0191Sdbguqtih [Moles/volume] in Serum or PlasmaChristopher Kayla CARDONA Work Phone: start: 48-65-7215Vztlea [Moles/volume] in Serum or PlasmaSamueltopher Kayla CARDONA Work Phone: Start: 95-26-4542Hpc routine ecg w/least 12 lds w/i&r Jimy Remy MD Work Phone: Start: 28-45-2158Jehg bld gluc mntr dev cleared fda spec home useEmma Garza MD Work Phone: Start: 85-99-4611Hvtsverez [Moles/volume] in Serum or PlasmaEmma Garza MD Work Phone: Start: 00-38-8054Hjrzqjaw screenStvz 2Start: 57-17-1444Gchln of magnesiumAlyssa Kimmie PA-C Work Phone: Start: 43-70-4847Trfywzyclx exam chest 2 viewsAlyssa Kimmie PA-C Work Phone: Start: 46-86-1547Txq routine ecg w/least 12 lds i&r onlyAlyssa Kimmie PA-C Work Phone: Start: 22-26-0780Fuvvm typing serologic aboAlyssa Kimmie PA-C Work Phone: Start: 06-15-2021H/O: surgeryS/p Partial vaginectomy with Ultrasonic Scalpel 06/15/21Eric Nikolai Abarca MD Work Phone: Start: 63-02-4094Adbdziz blood reagent stripEric Nikolai Abarca MD Work Phone: Start: 59-26-4101AZFBOJJEVW W/GFR POINT OF CAREEric Nikolai Abarca MD Work Phone: Start: 44-69-5065Exwd bld gluc mntr dev cleared fda spec home useEric Nikolai Abarca MD Work Phone: Start: 55-54-1872Ughayeaqi [Moles/volume] in Serum or PlasmaKin Abarca MD Work Phone: Start: 03-25-0143SCFFV METABOLIC PANEL W/ REFLEX TO MG FOR LOW KAlyssa Kimmie PA-C Work Phone: Start: 92-91-9771Raria count complete auto&auto difrntl wbcAlyssa Kimmie PA-C Work Phone: Start: 04-97-4431Xxmasprudq exam chest 2 viewsAlyssa Kimmie PA-C Work Phone: Start: 20-93-7714Uya routine ecg w/least 12 lds i&r onlyAlyssa Kimmie PA-C Work Phone: Start: 00-09-0912Ldlrslsr screenComment on above: Performed By: #### [id number] #### [address] [place] [address], USAStart: 01-99-7789Rgbmhpn of placement of stent for coronary artery [...] Plan of Treatment DateCare ActivityDetailAuthorStart: 07-03-2025 End: 41-85-3838Zrvcvof encounter snyunxspy03/23/2025 1:50 PM EDT Office Visit [facility] [address] [facility] [address] [place] [address] Peyman Hensley DPM 3006 [facility] 5 [place] [address] Diabetes mellitus due to underlying condition with diabetic polyneuropathy, 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 detention insulin use (HCC) (Primary Dx); Pain due to onychomycosis of toenails of both feet; Venous insufficiency; Acquired deformity of left toe; Neoplasm of uncertain behavior of skinNOMS CI PODIATRYComment on above:Diabetes mellitus due to underlying condition with diabetic polyneuropathy, 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 contemporary or 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 (HCC) (Primary Dx); Pain due to onychomycosis of toenails of both feet; Venous insufficiency; Acquired deformity of left toe; Neoplasm of uncertain behavior of skinStart: 79-53-4723Jwkrdejys vaccination Influenza Vaccine (#1)[facility] HealthcareStart: 04-08-2025 End: 72-87-5261Dhkslv-up hiuqaujpy65/29/2025 1:30 PM EDT Visit (SP) Office Hematology/Oncology [address] [place] [address] [address] [place], [place] [phone] Vaibhav Ashton MD [address] [facility] [place] [address] 6 month follow upHematology/OncologyComment on above:6 month follow upStart: 04-08-2025 End: 71-64-0920Bsgbbky encounter dbniurgzh59/29/2025 1:15 PM EDT Office Visit [facility] [address] [place] [address] labsNortApex Medical Center LaboratoryComment on above:labsStart: 11-21-2024 End: 05-48-7681Gocimjs encounter sqvkbpjsa93/13/2025 2:40 PM EDT Office Visit [facility] [address] [place] [address] [place] [phone] Peyman Hensley DPM [address] [address] Diabetes mellitus due to underlying condition with diabetic polyneuropathy, 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 contemporary or 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 (CMS/HCC) (Primary Dx); Pain due to onychomycosis of toenailsof both feet; Venous insufficiency; Neoplasm of uncertain behavior of skin; 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)[facility] PODIATRYComment on above:Diabetes mellitus due to underlying condition with diabetic polyneuropathy, 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 contemporary or 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 (CMS/HCC) (Primary Dx); Pain due to onychomycosis of toenails of both feet; Venous insufficiency; Neoplasm of uncertain behavior of skin; 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)Start: 11-07-2024 End: 56-65-6422Gsgxthi encounter zcebvlhkd24/27/2025 10:00 AM EST Office Visit [facility] [address] [place] [address] [place] [phone] Peyman Hensley DPM [address] [address] [facility]ODIATRYStart: 59-33-3489ItozfmddlGreene Memorial Hospitaltart: 10-08-2024 End: 62-82-2841Tozflvpof (Vitamin B12) [Mass/volume] in Serum or PlasmaAkron Children'S HospitalComment on above:Expected: 10/08/2024, Expires: 01/07/2025Start: 10-08-2024 End: 40-62-8985Qlxwwgmc [Mass/volume] in Serum or PlasmaAkron Children'S Hospital [facility] Work Phone: comment on above:Expected: 10/08/2024, Expires: 01/07/2025Start: 10-08-2024 End: 92-27-2274Usfzdk [Mass/volume] in Serum or PlasmaAkron Children'S HospitalComment on above:Expected: 10/08/2024, Expires: 01/07/2025Start: 10-08-2024 End: 63-05-2106Fxju and Iron binding capacity panel - Serum or PlasmaAkron Children'S HospitalComment on above:Expected: 10/08/2024, Expires: 01/07/2025Start: 10-08-2024 End: 04-80-6540fwqppubdmv59/28/2025 1:00 PM EST Visit (SP) Office Hematology/Oncology [address] [place] [address] [address] [place], [place] [phone] Vaibhav Ashton MD [address] [place] [address] [place] [address] AAMIR from [facility] wanted to transfer to [place] Hematology/OncologyComment on above:AAMIR from [facility] wanted to transfer to [facility]: 10-08-2024 End: 46-24-2177Bpflviz encounter kynlvhmsw14/28/2025 12:45 PM EST Office Visit [facility] [address] [place] [address] [place] [address] AAMIR from [facility] wanted to transfer to [facility] LaboratoryComment on above:AAMIR from [facility] wanted to transfer to [facility]: 10-04-2024 End: 31-21-4858EUZ W Auto Differential panel - BloodCOMPLETE BLOOD COUNT AND DIFFERENTIAL Lab Routine Malignant neoplasm of areola of right breast in female, estrogen receptor positive (HCC) Expected: 10/04/2024, Expires: 01/03/2025 [facility] Work Phone: Comment on above:Expected: 10/04/2024, Expires: 01/03/2025Start: 10-04-2024 End: 93-60-4235Iqahpmqfwlpms metabolic 2000 panel - Serum or PlasmaCOMPREHENSIVE METABOLIC PANEL Lab Routine Malignant neoplasm of areola of right breast in female, estrogen receptor positive (HCC) Expected: 10/04/2024, Expires: 01/03/2025[facility] ClinicComment on above:Expected: 10/04/2024, Expires: 01/03/2025Start: 62-21-0961Onursxe Directive DiscussionAdvance Directive DiscussionGreen Cross Hospitaltart: 08-29-2024 End: 21-53-9261Yrjncar encounter procedureNOMS CI PODIATRYComment on above: 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) (Primary Dx); Diabetes mellitus due to underlying condition with diabetic polyneuropathy, 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 detention insulin use (CMS/HCC); Pain due to onychomycosis of toenails of both feet; Venous insufficiencyStart: 28-81-8388Dzzsakfjew/HematocritHemoglobin/Hematocrit [facility] Hospitaltart: 76-03-2769Nejsc CreatinineSerum CreatinineGreen Cross Hospitaltart: 28-99-3642Ffcxb-19 Vaccine ( season)Covid-19 Vaccine ( season)[facility]: 50-93-8102Nxzevmzty vaccinationInfluenza Vaccine (#1)[facility] HealthcareStart: 18-19-2720FKCYXDUVYL/HEMATOCRIT HEMOGLOBIN/HEMATOCRITGreen Cross Hospitaltart: 56-28-8421BOIXU CREATININESERUM CREATININEGreen Cross Hospitaltart: 06-16-2023 End: 53-58-1260UHX W Auto Differential panel - BloodCBC + DIFF Lab Routine Malignant neoplasm of areola of right breast in female, estrogen receptor pos itive (HCC) Expected: 06/16/2023 (Approximate), Expires: 08/16/2023[facility] Work Phone: Comment on above:Expected: 06/16/2023 (Approximate), Expires: 08/16/2023Start: 06-16-2023 End: 22-25-9393Tcmhuutuztotg metabolic 1999 panel - Serum or PlasmaCOMP METABOLIC PANEL Lab Routine Malignant neoplasm of areola of right breast in female, estrogen receptor positive (HCC) Expected: 06/16/2023 (Approximate), Expires: 08/16/2023[facility] Work Phone: Comment on above:Expected: 06/16/2023 (Approximate), Expires: 08/16/2023Start: 33-72-3183Tpmcv-19 Vaccine ()Covid- 19 Vaccine ()[facility] Hospitaltart: 96-74-6398Jpksxroky vaccinationGreen Cross Hospitaltart: 04-12-2023 End: 44-54-3967Dvscuto encounter /02/2023 Office Visit Gynecologic Oncology Latonia Brush PA-C [address] [place] [address] [facility] Gynecologic Oncology ServicesStart: 02-09-2023 End: 27-42-1905RYF W Auto Differential panel - BloodCBC + DIFF Lab Routine Malignant neoplasm of areola of right breast in female, estrogen receptor pos itive (HCC) Expected: 02/09/2023 (Approximate), Expires: 04/11/2023[facility] Work Phone: Comment on above:Expected: 02/09/2023 (Approximate), Expires: 04/11/2023Start: 02-09-2023 End: 39-08-7661Wdamnyzyebgpi metabolic 2000 panel - Serum or PlasmaCOMP METABOLIC PANEL Lab Routine Malignant neoplasm of areola of right breast in female, estrogen receptor positive (HCC) Expected: 02/09/2023 (Approximate), Expires: 04/11/2023[facility] Work Phone: Comment on above:Expected: 02/09/2023 (Approximate), Expires: 04/11/2023Start: 87-20-7336Zyrkpepin monitoringPotassium monitoring [facility] HealthStart: 19-81-5953Ajqkzzuzhb measurementCreatinine monitoringMain Campus Medical Center HealthStart: 28-56-0265Gkhvjxlvy monitoringPotassium monitoringMercy Health Start: 11-29-2022 End: 48-18-4411CvrzrudanGreene Memorial Hospitaltart: 86-10-8669LIRRLTC DIRECTIVE DISCUSSIONADVANCE DIRECTIVE DISCUSSIONGreen Cross Hospitaltart: 26-73-7471DCVJSNOQLG ASSESSMENTDEPRESSION ASSESSMENTGreen Cross Hospitaltart: 07-27-2022 End: 40-73-7574Sfeczty encounter jbilucozz63/16/2022 Office Visit Gynecologic Oncology Emma Garza MD [address] [facility] [address] [place] [address] [facility] Gynecologic Oncology Services Start: 06-28-2022 End: 98-49-2787XBHLU VAGINAL CERVIX LESION EXCISION LASERVULVA VAGINAL CERVIX LESION EXCISION LASER Vaginal dysplasia 06/28/2022 9:04 AM [facility]: 38-31-8418Fvimkalrpb measurementCreatinine monitoring [facility] Work Phone: start: 90-61-3832Ztzchhssk monitoringPotassium monitoringMercy Health Work Phone: start: 96-77-0962Mejpvzcjcx measurementCreatinine monitoringMercy Health Work Phone: start: 37-10-3801Hmiwnbpcv vaccinationINFLUENZA (#1) [facility]tart: 99-90-7035Yiusmcjbz monitoringPotassium monitoringMercy Health Work Phone: start: 59-21-9966Kqmkvmjqf vaccinationFlu vaccine (#1) [facility]Start: 01-14-2022 End: 03-60-0500Vgyhkan encounter /06/2022 Office Visit Gynecologic Oncology Latonia Burks PA-C [address] [facility] [address] [place], [place] [address] [facility] Gynecologic Oncology ServicesStart: 12-13-2021 End: 68-91-4579YMMKBFILZVXQrxdiSycamore Medical Centertart: 12-13-2021 End: 28-53-5510Yikoqpxzd to same day surgery centerSTVZ ORComment on above: VAGINECTOMY, CYSTOSCOPYCYSTOSCOPY, VAGINECTOMYStart: 86-02-2874Ixqhfaqgwz hospital visit by zmrbftzpy36/04/2022 Hospital Encounter IP Unit Emma Garza MD [address] [facility] [address] [place], [place] [id number] [facility] ORStart: 12-13-2021 End: 88-79-7478Yctynqlrmcm complete removal vaginal wallVAGINECTOMY VAGINAL DYSPLASIA, RULE OUT CANCER 12/13/2021 10:20 AM EDSt. Vincent Hospitaltart: 13-21-4141Jbrceb Wellness Visit (AWV)Annual Wellness Visit (AWV) [facility]Start: 02-01-2448VHPAO-19 VACCINE (4 - Booster for Moderna series) COVID-19 VACCINE (4 - Booster for Moderna series)[facility]: 07-01-2021 End: 91-16-4968Kumutlq encounter dfbyafcyn28/21/2021 Office Visit Gynecologic Oncology Kin Abarca MD [address] [facility] [address] [place] [address] [phone] [facility] Gynecologic Oncology ServicesStart: 75-63-8296Zmsbqlhjj vaccinationFlu vaccine (#1)[facility] Work Phone: start: 12-00-1205YWCGQ-19 Vaccine (3 - Booster for Moderna series)COVID-19 Vaccine (3 - Booster for Moderna series)[facility] Start: 98-73-4936Ijqbjevvqn A1c pmslfwunaijIxN8COawuwbmbe ClinicStart: 07-21-6867Qdesgrxfip A1c/Hemoglobin.total in WtqfkGYI6PQauesjhtf ClinicStart: 55-55-3083Quawjknkbumr Vaccine: 50+ (2 of 2 - PCV)Pneumococcal Vaccine: 50+ (2 of 2 - PCV)[facility]: 59-76-9739Kxuqhmhwfarq Vaccine: 65+ (2 - PCV) Pneumococcal Vaccine: 65+ (2 - PCV)[facility]: 02-98-2875Glhegzindcpn Vaccine: 65+ Years (2 of 2 - PCV)Pneumococcal Vaccine: 65+ Years (2 of 2 - PCV) [facility] HospitalStart: 94-11-5425CREUIBIEQAAA: 65+ (2 - PCV)PNEUMOCOCCAL: 65+ (2 - PCV)[facility]: 42-76-0238ADG Vaccine (1 - 1-dose 75+ series)RSV Vaccine (1 - 1-dose 75+ series)[facility]: 83-03-5783GGXR DENSITYBONE DENSITYGreen Cross Hospitaltart: 15-99-9263Hbup Density ScreeningBone Density ScreeningWilson Memorial Hospitalrt: 59-42-7668Acnyljuvxzuj 65+ years Vaccine (1 - PCV)Pneumococcal 65+ years Vaccine (1 - PCV)[facility]: 80-79-7330Aeoucxzstdup 65+ years Vaccine (1 of 1 - PPSV23)Pneumococcal 65+ years Vaccine (1 of 1 - PPSV23)[facility]: 81-79-6486Veemkfpak for osteoporosisBone Density ScreeningWilson Memorial Hospitalrt: 11-12-0057Aqiybonts B Vaccine (1 of 3 - Risk 3-dose series)Hepatitis B Vaccine (1 of 3 - Risk 3-dose series)[facility] Hospitalrt: 74-86-4420Acmcshdjt for osteoporosisDEXA (modify frequency per FRAX score)[facility]: 53-80-5791Tfhhgvwk Vaccine (1 of 2) Shingles Vaccine (1 of 2)[facility]: 07-78-0226TAWGPQFV VACCINE (1 of 2) SHINGRIX VACCINE (1 of 2)[facility] Hospitalrt: 06-99-6373RFaT/Tdap/Td vaccine (1 - Tdap)DTaP/Tdap/Td vaccine (1 - Tdap)[facility]: 85-46-8932Hjdrc microalbumin profileWilson Memorial Hospitalrt: 24-06-9147CMYRNA PCP TEAM CHRONIC DISEASE VISITANNUAL PCP TEAM CHRONIC DISEASE VISITGreen Cross Hospitaltart: 53-19-8166Mlgwwqw ScreeningAnxiety ScreeningGreen Cross Hospitaltart: 54-55-6409SP CONTROLLED (<130/80)BP CONTROLLED (<130/80)[facility]: 1958 Depression ScreeningDepression ScreeningGreen Cross Hospitaltart: 1958 Hepatitis B surface antibody levelLDL CHOLESTEROLGreen Cross Hospitaltart: 05-48-1982Ongmoxbsz C screeningHepatitis C screenBON DAYTON VA MEDICAL CENTERStart: 50-37-2124Rlsggqouil ScreenDepression ScreenThe [facility] Hospital [facility]woodsStart: comp foot exam completedDIABETIC FOOT EXAMGreen Cross Hospitaltart: 32-21-8870Nmqqvgkc foot examinationDiabetic Foot ExamGreen Cross Hospitaltart: 65-65-8782Gofsakkt screeningDilated Retinal ExamGreen Cross Hospitaltart: 85-45-2265Xxrnrktrr B screeningURINE ALBUMIN:CREATININE RATIOGreen Cross Hospitaltart: 1950 Hepatitis C antibody, confirmatory testDILATED RETINAL EXAMAkron Children'S Hospital Start: 89-94-3831Lnwky panelThe Surgical Hospital At SouthwoodsStart: 63-97-9227Zshorzlqz C screening Hepatitis C screenThe Surgical Hospital At SouthwoodsEKG 12 LeadEKG 12 Lead ECG STAT 06/28/2022 7:29 AM EDTBON HAVASU REGIONAL MEDICAL CENTERMXP4 [facility] AKRONEasycause Phone: Homogenous nuclear Ab pattern [Titer] in Serum [facility] End: 28-89-2341ODUZZCOT PACU OXYGEN THERAPY PROTOCOLInitiate PACU Oxygen Therapy Protocol Respiratory Care Routine Continuous until discontinued starting 12/13/2021[facility] HospitalVi[facility] Phone: Comment on above:Continuous until discontinued starting 12/13/2021 End: 82-87-3808JWTJSZSB PACU OXYGEN THERAPY PROTOCOLInitiate PACU Oxygen Therapy Protocol Respiratory Care Routine Continuous until discontinued starting 06/28/2022ON [facility] MEDICAL CENTERMXP4 [facility] AKRONEasycause Phone: comment on above:Continuous until discontinued starting 06/28/2022 End: 68-02-2233QQT DIAGNOSTIC BILATERALMAM DIAGNOSTIC BILATERAL Radiology Routine Malignant neoplasm of areola of right breast in female, estrogen receptor positive (HCC) 1 Occurrences starting 06/20/2023 until 07/19/2024 [facility] Work Phone: Comment on above:1 Occurrences starting 06/20/2023 until 07/19/2024Nuclear Ab [Titer] in SerumTwin City Hospital Patient referralBellevue [facility] Work Phone: Spirometry panelIncentive spirometry Respiratory Care Routine Every 2hr while awake until discontinued starting 12/13/2021[facility]Vi[facility] Phone: comment on above:Every 2hr while awake until discontinued starting 12/13/2021urgical PathologySurgical Pathology Lab Routine Release Upon Ordering for 1 Occurrences starting 06/15/2021[facility] HospitalVi[facility] Phone: comchvj on above:Release Upon Ordering for 1 Occurrences starting 06/15/2021urgical PathologySurgical Pathology Lab Routine Release Upon Ordering for 1 Occurrences starting 12/13/2021[facility] HospitalVi[facility] Phone: comment on above:Release Upon Ordering for 1 Occurrences starting 12/13/2021urgical PathologySurgical Pathology Lab Routine Vaginal dysplasia Release Upon Ordering for 1 Occurrences starting 06/28/2022ON [employer] Phone: comswrz on above:Release Upon Ordering for 1 Occurrences starting 06/28/2022 End: 26-15-3982TQNRMEQY PATHOLOGY REPORTSURGICAL PATHOLOGY REPORT Lab Routine Once for 1 Occurrences starting 06/28/2022 until 06/28/2022[employer] Phone: comvjrq on above:Once for 1 Occurrences starting 06/28/2022 until 06/28/2022 End: 88-86-1588CLGSHZBL PATHOLOGY REPORTSURGICAL PATHOLOGY REPORT Lab Routine Once for 1 Occurrences starting 11/24/2022 until 11/24/2022[employer] Phone: comment on above:Once for 1 Occurrences starting 11/24/2022 until 11/24/2022[facility] Immunizations Immunization DateImmunizationNotesCare SmcydcwhDqcloxsc45-21-8452mkyzmpzsd virus vaccine, unspecified formulationPeyman Hensley DPM Work Phone: [facility] HospitalDttcakwtkv85-82-6724auclmvbjd virus vaccine, unspecified formulationMichael NILL GeneFairmont Rehabilitation and Wellness CenterFuwoqpcb47-23-9759XLHO-KzW-5 (COVID-19) fCPN-9551 vaccineMichael NILL [facility] CenterIdvzboax41-93-4390snypdoxtg (HD-IIV4) vaccine, age 65+ yr, high dose, quadrivalent, PF (FLUZONE HIGH-DOSE)Wallace Stone MD Work Phone: [facility] HospitalErmljb07-47-0285xyxhrgwxc virus vaccine, unspecified formulationWinnie Farris PA-C Work Phone: [facility]S HospitalBugwfl42-23-4835VDTNS-33, Moderna, PF, 100mcg/0.5mLStv XrThe Surgical Hospital At SouthwoodsPirhld15-15-2274EIYGX-26, Moderna, PF, 100mcg/0.5mLStv [facility] Work Phone: [phone]ra trivalent influenza vaccine, adjuvanted, preservative freeWallace Stone MD Work Phone: [facility] HospitalDjihgv22-39-8581rbjdimava, high dose seasonal, preservative-freeWallace Stone MD Work Phone: [facility] HospitalElhncr53-96-0865vpfhpxgebpak polysaccharide vaccine, 23 valentWallace Stone MD Work Phone: [facility] HospitalEqlywu71-85-0946cccbtenjj, high dose seasonal, preservative-freeWallace Stone MD Work Phone: [facility] HospitalGmcqpv34-37-6628zquaprsmt, high dose seasonal, preservative-freeWallace Stone MD Work Phone: [facility] HospitalUlwgyl74-63-2086vqoqsumqmzvu polysaccharide vaccine, 23 valentWallace Stone MD Work Phone: [facility]S HospitalZxqivm33-14-3559tsqbtcnod virus vaccine, whole virusWallace Stone MD Work Phone: [facility] Payers DatePayer CategoryPayerPolicy [id number]-[id number] 2008Medicare [id number] Health Insurance 1.2.840.991425.1.13.693.2.7.9.183568.764212.63226-24-8652Cdzwtem 1.2.840.268163.1.13.159.2.7.3.003437.71705-82-4868Aczehrr568317-95 1.2.840.457429.1.13.239.2.7.3.970543.315 [id number] 1.2.840.948001.1.13.239.2.7.3.892403.86952-59-3159Vktz-dqe17433256809-68-9154 [id number] 2.16.840.0.144494.48751868-37-5517Ymesrzv8729473 2.16.840.1.765935.3.579.2.59543-53-6695Pjeibbd5509048 2.16.840.1.378923.3.579.2.56467-89-2063Cmzvkap3893473 2.16.840.1.699121.3.579.2.60145-03-4758Cohzmpp0955992 2.16.840.1.990127.3.579.2.14721-93-0541Rmrjzzd1198388 2.16.840.1.305099.3.579.2.25923-13-9745Ibfvgug7116715 2.16.840.1.599831.3.579.2.12293-87-5883Shodjmb4056705 2.16.840.1.577686.3.579.2.31030-76-2465Deecemh6097539 2.16.840.1.018827.3.579.2.70994-39-4834Bfvaocb6738531 2.16.840.1.177204.3.579.2.83648-14-0431Bolqpjz4644410 2.16840.1.959967.3.579.2.77219-29-7875Mwpclyo6101815 2.16840.1.132898.3.579.2.68600-82-9528Lbfyunn0547235 2.16840.1.451538.3.579.2.37855-33-5014Gyzuytg6237349 2.16.840.1.005014.3.579.2.56521-98-2694Dsxteci2839525 2.16.840.1.369216.3.579.2.34978-27-4472Gcyyryn3285288 2.16840.1.489577.3.579.2.92790-74-3962Lmjoqbm8074636 2.16.840.1.287563.3.579.2.20174-20-4386Zharmqd8424541 2.16840.1.309870.3.579.2.17332-42-9714Cehifqf4180710 2.16.840.1.141906.3.579.2.32657-87-9216Cdayark6957871 2.16840.1.693931.3.579.2.86110-69-7857Xbolrjl4631629 2.16.840.1.624828.3.579.2.52565-99-0090Jtuuhsk6180890 2.16.840.1.525996.3.579.2.63633-22-2684Sohoghe4302652 2.16.840.1.894189.3.579.2.47482-07-2089Gomnyqn3939348 2.16.840.1.028675.3.579.2.98790-56-0455Dnvsxew9282230 2.16.840.1.015859.3.579.2.06468-79-6354Uizftzv2143840 2.16.840.1.610315.3.579.2.25063-69-8965Vwpmjrg1190045 2.16840.1.890675.3.579.2.75007-10-3965Hhmdfcp9816108 2.16.840.1.863324.3.579.2.45346-97-8838Hkypecq46970557 2.16.840.1.214625.3.579.2.51351-44-3517Oflqguv71386258 2.16.840.1.846777.3.579.2.25841-12-0501Bdlpzez21180315 2.16.840.1.222159.3.579.2.04703-99-9582Eijqlxv65398264 2.16.840.1.983766.3.579.2.15778-74-6337Ltcvsaj08743179 2.16.840.1.533691.3.579.2.10625-95-4330Uuvimrv92840203 2.16.840.1.649528.3.579.2.40715-69-2713Bxyxupk83804864 2..840.1.709818.3.579.2.95912-18-8495Drgugfb594183487 2..840.1.063818.3.579.2.21829-92-3182Ocpnfks260066735 2..840.1.847677.3.579.2.57232-39-0604Iycmhpo660797963 2.840.1.927585.3.579.2.66843-31-5929Jysnpzk67200753 2..840.1.850357.3.579.2.641867-11-3683Xgvkxja1729359 2.840.1.508622.3.579.2.983620-21-1851Dlfmiei2155769 2.0.1.557205.3.579.2.790330-06-8151Jgmiwwq3972447 2.840.1.228307.3.579.2.446843-08-7355Xuymome019947046 2.840.1.868377.3.579.2.196Medicare270389004D 262k0373-04ne-14rl-6qr1-83392849d580Vcaclqs66663030 2.840.1.229743.3.579.2.632Xghqofg73240894 2.16840.1.360551.3.579.2.531 Boonyln22887432 2.16840.1.522920.3.579.2.188Kqizenv03826588 [id number] 2.840.1.402134.3.579.2.531 Social History DateTypeDetailFacilityStart: 05-12-2021 End: 31-94-7617Kzsciyc smoking status NHISFormer smokerMain [facility] Medical Center [employer] Phone: start: 09-11-1960 End: 54-37-5286Igwyldp of tobacco useCurrent smokerThe Surgical Hospital At SouthwoodsStart: 09-11-1962 End: 48-67-7546Rvqzwru of tobacco useCigarette SmokerThe Surgical Hospital At SouthwoodsStart: 05-12-2021 End: 88-44-9747Llytxdq use and exposureNever usedProtestant Deaconess HospitalBillabong [facility] HospitalStart: 05-12-2021 End: 56-22-8929Jpzzdti intakeEx-drinker (finding)[employer] Phone: start: 17-04-7869Zxt Assigned At BirthNot on fileProtestant Deaconess HospitalViZn [employer] Phone: start: 11-26-2021 End: 61-78-7847Heecuqii to SARS-CoV-2 (event)Not sureThe Surgical Hospital At SouthwoodsStart: 06-15-2021 End: 39-89-0186Wldynebzjp smoked current (pack per day) - ReportedWilson Street Hospitaltory of tobacco usePassive smokerBON SECOURS [employer] Phone: start: 73-19-4459Kmkggph smoking statusNeverGeneral Surgery BellevueStart: 02-14-2023 End: 11-51-4412Lzs Assigned At [facility] Hospitaltart: 09-19-2022 End: 62-07-1661Pblzpsz intakeCurrent non-drinker of alcohol (finding)[facility] Hospitaltart: 67-20-4875Fzm Assigned At [facility] HospitalTobacco smoking status NHISTobacco smoking consumption unknownNONY HealthcareStart: 06-20-2024 End: 37-64-9640Wbytwkoxq beverage intakeLifetime non-drinker (finding)[facility] HealthcareStart: 10-30-2024 End: 79-05-1382YcgXrfiah (finding)[facility] Medical Equipment Procedure CodeEquipment CodeEquipment Original TextEquipment IdentifierDates Aortogram, abdominal, with bilateral lower extremity runoffIR STENT BLUE 6 X 12 80CMFDAStart: 82-92-4556Bzgesbpas, abdominal, with bilateral lower extremity runoffIR STENT SMART 6 X 120 120CMFDAStart: 36-74-5472Aohmkbuol, abdominal, with bilateral lower extremity runoffIR STENT SMART 6 X 40 120CMFDAStart: 04-25-2019 Aortogram, abdominal, with bilateral lower extremity runoffIR STENT BLUE 6 X 12 80CMFDAStart: 20-61-5255Ujdxtnvee, abdominal, with bilateral lower extremity runoffIR STENT SMART 6 X 120 120CMFDAStart: 77-00-5270Wzboecbyk, abdominal, with bilateral lower extremity runoffIR STENT SMART 6 X 40 120CMFDAStart: 04-25-2019 Aortogram, abdominal, with bilateral lower extremity runoffIR STENT BLUE 6 X 12 80CMFDAStart: 46-07-1967Fmfedyibk, abdominal, with bilateral lower extremity runoffIR STENT SMART 6 X 120 120CMFDAStart: 35-78-9850Dqtgcirsd, abdominal, with bilateral lower extremity runoffIR STENT SMART 6 X 40 120CMFDAStart: 04-25-2019 Aortogram, abdominal, with bilateral lower extremity runoffIR STENT BLUE 6 X 12 80CMFDAStart: 78-97-4990Xcopkvvfx, abdominal, with bilateral lower extremity runoffIR STENT SMART 6 X 120 120CMFDAStart: 87-12-5733Lbnvecfco, abdominal, with bilateral lower extremity runoffIR STENT SMART 6 X 40 120CMFDAStart: 04-25-2019 Aortogram, abdominal, with bilateral lower extremity runoffIR STENT BLUE 6 X 12 80CMFDAStart: 83-96-9355Idqhuxytm, abdominal, with bilateral lower extremity runoffIR STENT SMART 6 X 120 120CMFDAStart: 50-84-5410Bgyjcbfya, abdominal, with bilateral lower extremity runoffIR STENT SMART 6 X 40 120CMFDAStart: 04-25-2019 Aortogram, abdominal, with bilateral lower extremity runoffIR STENT BLUE 6 X 12 80CMFDAStart: 72-35-9202Hwiiyisot, abdominal, with bilateral lower extremity runoffIR STENT SMART 6 X 120 120CMFDAStart: 49-58-0642Fsgrzpqga, abdominal, with bilateral lower extremity runoffIR STENT SMART 6 X 40 120CMFDAStart: 04-25-2019 Aortogram, abdominal, with bilateral lower extremity runoffIR STENT BLUE 6 X 12 80CMFDAStart: 48-21-2871Srwbxfdsx, abdominal, with bilateral lower extremity runoffIR STENT SMART 6 X 120 120CMFDAStart: 10-54-3737Pibgjtxee, abdominal, with bilateral lower extremity runoffIR STENT SMART 6 X 40 120CMFDAStart: 04-25-2019 Aortogram, abdominal, with bilateral lower extremity runoffIR STENT BLUE 6 X 12 80CMFDAStart: 77-45-6431Mafpxzbrp, abdominal, with bilateral lower extremity runoffIR STENT SMART 6 X 120 120CMFDAStart: 12-78-8371Alvhvnase, abdominal, with bilateral lower extremity runoffIR STENT SMART 6 X 40 120CMFDAStart: 04-25-2019 Aortogram, abdominal, with bilateral lower extremity runoffIR STENT BLUE 6 X 12 80CMFDAStart: 94-46-9839Vpupjxbiq, abdominal, with bilateral lower extremity runoffIR STENT SMART 6 X 120 120CMFDAStart: 21-15-2313Vuljpokev, abdominal, with bilateral lower extremity runoffIR STENT SMART 6 X 40 120CMFDAStart: 04-25-2019 Functional Status WezxSupyzhjghmNqczckWofjtsuh98-07-6677Gttmtpicrd StatusN/AGeneral Surgery [employer] Clinical Notes 05-12-2021 to 07-03-2025 Note Date & RbmdRwxzJwbqyfjh02-01-4422 History of Present illness Narrative* Peyman Hensley, [...] No Food Insecurity (09/12/2024) Received from [facility] Hunger Vital Sign Within the past 12 months, you worried that your food would run out before you got the money to buymore.: Never true Within the past 12 months, the food you bought just didn't last and you didn't have money to get more.: Never true Transportation Needs: No Transportation Needs (09/12/2024) Received from [facility] Transportation In the past 12 months, [...] Not At Risk (09/12/2024) Received from [facility] Humiliation, Afraid, Rape, and Kick questionnaire [...] Stability: Low Risk (09/12/2024) Received from [facility] Housing Stability Vital Sign In the last 12 months, was there a time when you were not able to pay the mortgage or rent on time?: No In the past 12 months, how many times have you moved where you were living?: 1 At any time in the past 12 months, were you homeless or living in a penitentiary (including now)?: No ROS: General: denies fever, [...] and negative PT pedal pulses NEURO: 5.07 [place] Sybil monofilament test intact to digits and forefoot bilaterally 125Hz tuning fork diminished to 1st MPJ bilaterally ORTHO: Positive pain on palpation to toenails of the left 1,2,3,4,5 toes and right 1,2,3,4,5 toes ASSESSMENT 1. Diabetes mellitus due to underlying condition with diabetic polyneuropathy, 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 detention insulin use (HCC) 2. Pain due to [...] future Peyman Hensley DPM documented in this encounterBarnes-Jewish Saint Peters [id number] NoteUT Electrophysiology Consult Note [place] [facility] Reason for visit: s/p CRTD [...] today shows good function. Patient underwent the PET FOOD DEBONER placement on 07/10/2024 and subsequently underwent an [...] in A-fib. She was just discharged from [facility] for GI bleed. Eliquis and aspirin have [...] fibrillation (CMS/HCC) CAD (coronary artery disease) Cancer ([facility]/HCC) CHF (congestive heart failure) ([facility]) Chronic kidney disease COPD (chronic obstructive pulmonary disease) ([facility]/HCC) Diabetes mellitus ([facility]) GI bleed Heart murmur Hyperlipidemia Hypertension PVD [...] Other Tramadol Other Oxycodo (more content not included)...[facility] 11-21-2024 History of Present illness Narrative* [...] No Food Insecurity (09/12/2024) Received from [facility] Hunger Vital Sign Within the past 12 months, you worried that your food would run out before you got the money to buymore.: Never true Within the past 12 months, the food you bought just didn't last and you didn't have money to get more.: Never true Transportation Needs: No Transportation Needs (09/12/2024) Received from [facility] Transportation In the past 12 months, [...] Not At Risk (09/12/2024) Received from [facility] Humiliation, Afraid, Rape, and Kick questionnaire Fear of Current or Ex-Partner: No Emotionally Abused: No Physically Abused: No Sexually Abused: No Housing Stability: Low Risk (09/12/2024) Received from [facility] Housing Stability Vital Sign In the last 12 months, was there a time when you were not able to pay the mortgage or rent on time?: No In the past 12 months, how many times have you moved where you were living?: 1 At any time in the past 12 months, were you homeless or living in a penitentiary (including now)?: No ROS: General: denies fever, [...] and negative PT pedal pulses NEURO: 5.07 [place] Sybil monofilament test intact to digits and forefoot bilaterally 125Hz tuning fork diminished to 1st MPJ bilaterally ORTHO: Positive pain on palpation to toenails of the left 1,2,3,4,5 toes and right 1,2,3,4,5 toes ASSESSMENT 1. Diabetes mellitus due to underlying condition with diabetic polyneuropathy, 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 detention insulin use ([facility]) 2. Pain due to onychomycosis of toenails of both feet 3. Venous insufficiency 4. Neoplasm of uncertain behavior of skin 5. 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 Patient underwent the PET FOOD DEBONER placement on 07/10/2024 and subsequently underwent an [...] in A-fib. She was just discharged from [facility] for GI bleed. Eliquis and aspirin have [...] disease) Cancer (CMS/HCC) CHF (congestive heart failure) (CMS/[facility]) Chronic kidney disease COPD (chronic obstructive pulmonary disease) ([facility]) Diabetes mellitus ([facility]) GI bleed Heart murmur Hyperlipidemia Hypertension PVD (peripheral vascular disease) PSH: Past Surgical History: Procedure Laterality Date CARDIAC CATHETERIZATION 12/15/2011, 08/23/2010, 12/30/2004, CORONARY STENT PLACEMENT HYSTERECTOMY 03/11/2005 VASCULAR SURGERY SH: Social Determinants of Health Tobacco Use: Medium Risk (10/08/2024) Received from [facility] Patient History Smoking Tobacco Use: Former [...] TIMES DAILY NEEDED luba (more content not included)...[facility] 10-09-2024 Telephone encounter Note* Telephone Encounter - Vernell Dey RN - 10/09/2024 9:01 AM EST Pt informed of AV message, once verified, using 2 patient identifiers. She will obtain and start B12, as recommended. Patient denies any questions, needs or concerns at this time. Appointment verified. Vernell Dey RN [facility]01-29-2025 Miscellaneous Notes* Telephone Encounter - Vernell [...] B12 levels. Thank you. documented in this encounterAkron [facility]01-29-2025 Telephone encounter Note * Telephone Encounter - Vaibhav Ashton MD - 10/09/2024 8:38 AM EST Please tell her to start OTC B12 supplements 1000mcg one tab daily for the low B12 levels. Thank you. [facility]01-28-2025 Instructions* Patient Instructions* Vaibhav Ashton MD - 10/08/2024 1:23 PM EST Labs today Arimidex sent to pharmacy F/u in 6 months documented in this encounterAkron Children'S Hospital01-28-2025 History of Present illness Narrative* Vaibhav Ashton MD - 10/08/2024 1:00 PM EST Images from the original note were not included. PATIENT NAME: Harman Mcleod [facility] NO.: [id number] ATTENDING PHYSICIAN: Vaibhav Ashton MD DATE OF SERVICE: 10/08/24 Some of the elements of this note have been copied from Winnie MILLAN previous progress note dated 06/20/23. All the information has been reviewed carefully. CC: Follow up Diagnosis: T1b, N0, M0- R breast, Tumor 9 mm, Grade 2, Margins negative, Negative LVI, 2 SNL negative, ER and NJ >95% positive, Her2 IHC 1+ Treatment History: [...] in Jun 2024 - Mammogram done at [facility] - On eliquis for Afib PAST [...] Range Status 06/20/2023 4.8 % Final Abs Baker Date Value Ref Range Status 06/20/2023 0.49 [...] follow up. R Breast T1b,N0,M0- ER and NJ >95% positive and Her-2 IHC 1+ tumor [...] months. 3.Vulvar high grade dysplasia- Seen by [employer] [facility] [employer] [employer] [facility] in the past. Not following currently. 4 CHF- S/p AICD placement in Jun 2024. 5. Afib on eliquis 6. CKD 7. F/u with PCP, cardiology and other consultants. F/u in 6 months. Total time spent 30 min. Vaibhav Ashton MD [facility] Hematology/Oncology CC: MD Mateus Spicer MD documented in this encounterAkron Children'S Hospital01-28-2025 NoteHNO ID: [id number] Author: VAIBHAV ASHTON MD Service: ? Author Type: Physician Type: Progress Notes Filed: 10/08/2024 14:03 Note Text: PATIENT NAME: Harman Mcleod [facility] NO.: [id number] ATTENDING PHYSICIAN: Vaibhav Ashton MD DATE OF SERVICE: 10/08/24 Some of the elements of this note have been copied from Winnie MILLAN previous progress note dated 06/20/23. All the information has been reviewed carefully. CC: Follow up Diagnosis: T1b, N0, M0- R breast, Tumor 9 mm, Grade 2, Margins negative, Negative LVI, 2 SNL negative, ER and NJ >95% positive, Her2 IHC 1+ Treatment History: [...] in Jun 2024 - Mammogram done at [facility] - On eliquis for Afib PAST [...] Total (g/dL) Date Value (more content not included)...[facility]01-24-2025 Telephone encounter Note* Telephone Encounter - Carlos Brooks - 10/04/2024 2:27 PM EST Patient has been scheduled w/ Dr. Guzman on Sunday 10/08. Patient notified. Thanks! Carlos Brooks [facility]01-24-2025 Miscellaneous Notes* Telephone Encounter - Carlos [...] they would like to transfer care to [place] * Telephone Encounter - Evita Deshpande RN - 10/04/2024 12:46 PM EST Per 06/20/23 [facility] oncology: pt is to return in about 4 months (around 10/21/2023) for MD miquel visit. Pt has been lost to follow up NEEDS visit before medication can be renewed: OV Dr Stone in [place]- if too far for pt to drive can forward to [place] team for transition of care with new provider Labs day prior (CBC/diff, CMP) [phone] (home) * Telephone Encounter - Maylin Sandoval [...] updated that he practices out of the [facility] location. I made heraware that I will send a message and she is to expect a call. Patient and daughter agree with plan and appreciate the time. Maylin Sandoval RN documented in this encounterAkron Children'S Hospital01-24-2025 Telephone encounter Note * Telephone Encounter [...] they would like to transfer care to [place] [facility]01-24-2025 Telephone encounter Note* Telephone Encounter - Evita Deshpande RN - 10/04/2024 12:46 PM EST Per 06/20/23 [facility] oncology: pt is to return in about 4 months (around 10/21/2023) for MD miquel visit. Pt has been lost to follow up NEEDS visit before medication can be renewed: OV Dr Stone in [place]- if too far for pt to drive can forward to [place] team for transition of care with new provider Labs day prior (CBC/diff, CMP) [phone] (home) [facility]01-24-2025 Telephone encounter Note* Telephone Encounter - [...] updated that he practices out of the [facility] location. I made heraware that I will send a message and she is to expect a call. Patient and daughter agree with plan and appreciate the time. Maylin Sandoval RN [facility]01-14-2025 NoteUT Electrophysiology Consult Note [place] [facility]iology - [facility] Reason for visit: s/p CRTD and AVN [...] today shows good function. Patient underwent the PET FOOD DEBONER placement on 07/10/2024 and subsequently underwent an [...] in A-fib. She was just discharged from [facility] for GI bleed. Eliquis and aspirin have [...] kidney disease COPD (chronic obstructive pulmonary disease) ([facility]) Diabetes mellitus ([facility]) GI bleed Heart murmur Hyperlipidemia Hypertension PVD (peripheral vascular disease) ([facility]) PSH: Past Surgical History: Procedure Laterality Date [...] apixaban (Eliquis) 2.5 mg (more content not included)...[facility]01-02-2025 NoteUT Electrophysiology Consult Note [place] [facility] Reason for visit: s/p CRTD [...] today shows good function. Patient underwent the PET FOOD DEBONER placement on 07/10/2024 and subsequently underwent an [...] in A-fib. She was just discharged from [facility] for GI bleed. Eliquis and aspirin have [...] Diagnosis Date Abnormal ECG Arrhythmia Atrial fibrillation ([facility]/HCC) CAD (coronary artery disease) Cancer ([facility]/HCC) CHF (congestive heart failure) ([facility]/HCC) Chronic kidney disease COPD (chronic obstructive pulmonary disease) ([facility]/HCC) Diabetes mellitus ([facility]/HCC) GI bleed Heart murmur Hyperlipidemia Hypertension PVD (peripheral vascular disease) ([facility]) PSH: Past Surgical History: Procedure Laterality Date [...] 1 tablet (2.5 mg) (more content not included)...[facility]12-23-2024 NoteUT Electrophysiology Consult Note [place] [facility] Reason for visit: s/p CRTD [...] today shows good function. Patient underwent the PET FOOD DEBONER placement on 07/10/2024 and subsequently underwent an [...] in A-fib. She was just discharged from [facility] for GI bleed. Eliquis and aspirin have [...] murmur Hyperlipidemia Hypertension PVD (peripheral vascular disease) ([facility]/HCC) PSH: Past Surgical History: Procedure Laterality Date [...] on file Intimate Partner Violence: Unknown (11/02/2023) [place] Safety & Environment Fear of Current or [...] daily. fish oil concen (more content not included)...[facility]12-19-2024 History of Present illness Narrative* Peyman [...] 4 months after hitting object. Currently sees [facility] every 3 weeks with application [...] Partner Violence: Unknown (11/02/2023) Received from [facility], [facility] [place] Safety & Environment Fear of [...] and negative PT pedal pulses NEURO: 5.07 [place] Sybil monofilament test intact to digits and forefoot bilaterally 125Hz tuning fork diminished to 1st MPJ bilaterally ORTHO: Positive pain on palpation to nails 1 through 10 Positive pain palpation left anterior braun ASSESSMENT 1. 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 Pain due to onychomycosis of toenails [...] applied . Patient currently has the [facility] wound center applying Medihoney every other day. Did discuss possibility if no improvement to contact Podiatry for advanced wound care treatments or if any signs of infection Peyman Hensley DPM documented in this encounterBarnes-Jewish Saint Peters [id number] NoteUT Electrophysiology Consult Note [place] [facility] Reason for visit: s/p CRTD [...] today shows good function. Patient underwent the PET FOOD DEBONER placement on 07/10/2024 and subsequently underwent an [...] in A-fib. She was just discharged from [facility] for GI bleed. Eliquis and aspirin have [...] fibrillation (CMS/HCC) CAD (coronary artery disease) Cancer ([facility]/HCC) CHF (congestive heart failure) ([facility]/HCC) Chronic kidney disease COPD (chronic obstructive pulmonary disease) ([facility]/HCC) Diabetes mellitus ([facility]/HCC) GI bleed Heart murmur Hyperlipidemia Hypertension PVD (peripheral vascular disease) ([facility]/HCC) PSH: Past Surgical History: Procedure Laterality Date CARDIAC CATHETERIZATION 12/15/2011, 08/23/2010, 12/30/2004, CORONARY STENT PLACEMENT HYSTERECTOMY 03/11/2005 VASCULAR SURGERY SH: Social Determinants of Health Tobacco Use: Medium Risk (06/20/2024) [facility] Patient History Smoking Tobacco Use: Former Smokeless Tobacco Use: Never Passive Exposure: Not on file Alcohol Use: Not on file Financial Resource Strain: Not on file Food Insecurity: Not on file Transportation Needs: Not on file Physical Activity: Not on file Stress: Not on file Social Connections: Not on file Intimate Partner Violence: Unknown (11/02/2023) [place] Safety [place] Fear of Current or Ex-Partner: Not on file Emotionally Abused: Not on file Physically Abused: Not on file Sexually Abused: Not on file Physically or Sexually Abused: Not on file Depression: Not at risk (02/14/2023) Received from [facility] PHQ-2 PHQ-2 score: 0 Housing Stability: [...] mouth two times daily. fish oil concentrate ([place]-3) 120-180 mg capsule Take 1,000 mg by [...] >130 insulin glargine (L (more content not included)...[facility]12-02-2024 NoteAV NODE ABLATION PROCEDURE REPORT DATE OF PROCEDURE: 08/12/2024 PERFORMING PHYSICIAN: Dr. Brian Kern CREEL HAND: SAVAGE CONSENT: Patient NAME OF THE PROCEDURE: [...] in A-fib. She was just discharged from [facility] for GI bleed. Eliquis and aspirin have been put on hold. She was originally scheduled for DCCV today with Dr. Keyes. Jardiance was stopped, and metoprolol was reduced to 100mg daily.She underwent PET FOOD DEBONER on 07/10/24 and now presents for AVN [...] stored. Venous access was obtained and a TriQ Systemsigo sheath was placed in the right femoral [...] 3. Continue anticoagulation. Brian Kern MD Cardiac Electrophysiology.[facility]12-02-2024 Note Patient: Harman Mcleod Procedure Information Date/Time: 08/12/24 1230 Procedure: AV node ablation - PC APPROVED Location: [facility] MEDICATION RECONCILIATION TECHNICIAN 1 EP / [facility] (Cath) Providers: Brian Kern MD Clinical information reviewed: Allergies Meds OB Status Physical Exam Airway Mallampati: II TM distance: >3 FB Neck ROM: full Cardiovascular Dental Pulmonary Abdominal Anesthesia Plan ASA 2 CSE Additional Equipment RequestsFort [facility] Hospital10-10-2024 History of Present illness Narrative* Peyman [...] 2 months after hitting object. Currently sees [facility] every 3 weeks with application [...] Partner Violence: Unknown (11/02/2023) Received from [facility], [facility] [place] Safety & Environment Fear of [...] and negative PT pedal pulses NEURO: 5.07 [place] Sybil monofilament test intact to digits and forefoot bilaterally 125Hz tuning fork diminished to 1st MPJ bilaterally ORTHO: Positive pain on palpation to nails 1 through 10 Positive pain palpation left anterior braun ASSESSMENT 1. Venous insufficiency 2. Hav (hallux abducto valgus), left 3. Acquired deformity of left toe 4. 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 ([facility]) 5. Diabetes mellitus due to underlying condition with diabetic polyneuropathy, 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 detention insulin use ([facility]) 6. Pain due to onychomycosis of toenails [...] applied . Patient currently has the [facility] wound center applying Medihoney every other day. Did discuss possibility if no improvement to contact Podiatry for advanced wound care treatments or if any signs of infection Peyman Hensley DPM documented in this encounterBarnes-Jewish Saint Peters [id number] Progress note Author Janell Mathews [facility] April 10, 2024 10:30amNote Date/TimeJuly 2023 10:30[place] [address] Wound Center Provider Note Signed Patient: Harman Mcleod MR#: [id number] : 1940 Acct:[id number] Age/Sex: 83 / F Copies to: MD Janell Oliver, PRICING COORDINATOR~ HPI Date of Visit Date of Visit: Date of Service: 04/10/2024 Time of Service: : Narrative HPI: 12/11/23 Harman is an 83 year old presenting to [facility] wound care for an [...] present for the entire visit, she has [facility], the left leg will be treated with [...] wrapped again today for good measure and [facility] can remove next week and start stockings or wraps if something isopen on the legs, family and friend present for the visit, does not need to return to the office unless new ulcers do develop, spoke about her getting established with a wide area network engineer and so hopefully she will follow through [...] instructedto go to the ED per the [facility] nurse but she had refused this [...] bilateral lower leg ulcers Mode of Arrival/ Enterprise Software Engineer: Friend Assistive Device Used Today: Walker Lives with:: Significant Other Appetite Description: Within Normal Limits Who helps w/ dressing change?: Home Health Why Do You Need Help?: Can't Reach Ulcer, Limited mobility, Unsafe leave home byself and Taxing effort to leave home Smoking Status: Former smoker COUNT INCLUDES THE [facility] Medical History (Updated 04/10/24 @ 10:30 [...] List clean-up per request of Phys. EHR [facility] History of heart artery stent Problem List clean-up per [facility]. [facility] (Updated 06/01/23 @ 08:45 [...] DAILY 04/25/19 [History Confirmed 12/11/23] omega-3s 300 je-ium-cjh-other bpckv4c-tudy oil 1,000 mg capsule ([place]-3 Fish Oil) 2 cap PO BID 04/25/19 [...] Stasis Ulcer Thickness: Skin Breakdown Bed Appearance: [place] Percent of Wound Bed Granulated/Red: 100 Percent [...] by FERNY Mathews> 04/10/24 1030 [facility] Work Phone: 1(960) 687-960207-16-2024 Progress note Author Janell Mathews [facility] March 26, 2024 9:51amNote Date/TimeJuly 2023 9:51[place] [address] Wound Center Provider Note Signed Patient: aHrman Mcleod MR#: [id number] : 1940 Acct:[id number] Age/Sex: 83 / F Copies to: MD Janell Oliver APRN~ HPI Date of Visit Date of Visit: Date of Service: 03/26/2024 Time of Service: 09:47 Narrative HPI: 12/11/23 Harman is an 83 year old presenting to [facility] wound care for an [...] present for the entire visit, she has [facility], the left leg will be treated with [...] wrapped again today for good measure and [facility] can remove next week and start stockings or wraps if something isopen on the legs, family and friend present for the visit, does not need to return to the office unless new ulcers do develop, spoke about her getting established with a wide area network engineer and so hopefully she will follow through [...] instructedto go to the ED per the [facility] nurse but she had refused this [...] bilateral lower leg ulcers Mode of Arrival/ Enterprise Software Engineer: Friend Assistive Device Used Today: Walker Lives with:: Significant Other Appetite Description: Within Normal Limits Who helps w/ dressing change?: Home Health Why Do You Need Help?: Can't Reach Ulcer, Limited mobility, Unsafe leave home byself and Taxing effort to leave home Smoking Status: Former smoker COUNT INCLUDES THE [facility] Medical History (Updated 02/13/24 @ 10:54 [...] DAILY 04/25/19 [History Confirmed 12/11/23] omega-3s 300 oe-rxh-xsv-other mveag4x-auhq oil 1,000 mg capsule ([place]-3 Fish Oil) 2 cap PO BID 04/25/19 [...] Breakdown Bed Appearance: Epithelial Tissue or Bridge, [place] and Yellow Percent of Wound Bed Granulated/Red: [...] by FERNY Mathews> 03/26/24 0951 [facility] Work Phone: 1(711) 969-896706-04-2024 Progress note Author Janell Mathews [facility] February 13, 2024 10:55amNote Date/TimeJune 2023 10:55[place] [address] Wound Center Provider Note Signed Patient: Harman Mcleod MR#: [id number] : 1940 Acct:[id number] Age/Sex: 83 / F Copies to: MD Janell Oliver, PRICING COORDINATOR~ HPI Date of Visit Date of Visit: Date of Service: 02/13/2024 Time of Service: 10:47 Narrative HPI: 12/11/23 Harman is an 83 year old presenting to [facility] wound care for an [...] present for the entire visit, she has [facility], the left leg will be treated [...] wrapped again today for good measure and [facility] can remove next week and start stockings or wraps if something isopen on the legs, family and friend present for the visit, does not need to return to the office unless new ulcers do develop, spoke about her getting established with a wide area network engineer and so hopefully she will follow through [...] instructedto go to the ED per the [facility] nurse but she had refused this and wanted to come to this appt instead Subjective Pain Left Leg: Pain Description: Intermittent Pain Intensity: 0 Wound/Ulcer History When did wound start?: August 2023 bilateral lower leg ulcers Mode of Arrival/ Enterprise Software Engineer: Friend Assistive Device Used Today: Walker Lives with:: Significant Other Appetite Description: Within Normal Limits Who helps w/ dressing change?: Home Health Why Do You Need Help?: Can't Reach Ulcer, Limited mobility, Unsafe leave home byself and Taxing effort to leave home Smoking Status: Former smoker COUNT INCLUDES THE [facility] Medical History (Updated 02/13/24 @ 10:54 [...] List clean-up per request of Phys. [facility]HR [facility] Family History (Updated 06/01/23 @ 08:45 by [...] DAILY 04/25/19 [History Confirmed 12/11/23] omega-3s 300 es-tro-xpu-other jjbby5x-tmjn oil 1,000 mg capsule ([place]-3 Fish Oil) 2 cap PO BID 04/25/19 [...] Posterior Thigh: Bed Appearance: Beefy Red and [place] Percent of Wound Bed Granulated/Red: 0 Percent [...] by FERNY Mathews> 02/13/24 1055 [facility] Work Phone: 1(988) 856-579705-21-2024 Progress note Author Janell Mathews [facility] January 30, 2024 10:44amNote Date/TimeMay 2023 10:44[place] [address] Wound Center Provider Note Signed Patient: Harman Mcleod MR#: [id number] : 1940 Acct:[id number] Age/Sex: 83 / F Copies to: MD Janell Oliver, FERNY~ HPI Date of Visit Date of Visit: Date of Service: 01/30/2024 Time of Service: 10:37 Narrative HPI: 12/11/23 Harman is an 83 year old presenting to [facility] wound care for an [...] present for the entire visit, she has [facility], the left leg will be treated [...] wrapped again today for good measure and [facility] can remove next week and start stockings or wraps if something isopen on the legs, family and friend present for the visit, does not need to return to the office unless new ulcers do develop, spoke about her getting established with a wide area network engineer and so hopefully she will follow through [...] bilateral lower leg ulcers Mode of Arrival/ Enterprise Software Engineer: Friend Assistive Device Used Today: Walker Lives with:: Significant Other Appetite Description: Within Normal Limits Who helps w/ dressing change?: Home Health Why Do You Need Help?: Can't Reach Ulcer, Limited mobility, Unsafe leave home byself and Taxing effort to leave home Smoking Status: Former smoker COUNT INCLUDES THE [facility] Medical History (Updated 01/30/24 @ 10:43 [...] DAILY 04/25/19 [History Confirmed 12/11/23] omega-3s 300 tw-dfp-hli-other mzdel2w-oogq oil 1,000 mg capsule ([place]-3 Fish Oil) 2 cap PO BID 04/25/19 [...] Posterior Thigh: Bed Appearance: Beefy Red and [place] Percent of Wound Bed Granulated/Red: 100 Percent [...] by FERNY Mathews> 01/30/24 1044 [facility] Work Phone: 1(855) 270-742404-18-2024 Progress note Author Janell Mathews [facility] December 28, 2023 11:22amNote Date/TimeApril 2023 11:22[place] [address] Wound Center Provider Note Signed Patient: Harman Mcleod MR#: [id number] : 1940 Acct:[id number] Age/Sex: 83 / F Copies to: MD Janell Oliver, FERNY~ HPI Date of Visit Date of Visit: Date of Service: 12/28/2023 Time of Service: 11:19 Narrative HPI: 12/11/23 Harman is an 83 year old presenting to [facility] wound care for an [...] present for the entire visit, she has [facility], the left leg will be treated [...] spoke about her getting established with a wide area network engineer and so hopefully she will follow through on that, spoke about compression socks too forlong term use Subjective Pain Left Leg: Pain Intensity: 0 Wound/Ulcer History When did wound start?: August 2023 bilateral lower leg ulcers Mode of Arrival/ Enterprise Software Engineer: Friend Assistive Device Used Today: Walker Lives with:: Significant Other Appetite Description: Within Normal Limits Who helps w/ dressing change?: Home Health Why Do You Need Help?: Can't Reach Ulcer, Limited mobility, Unsafe leave home byself and Taxing effort to leave home Smoking Status: Former smoker COUNT INCLUDES THE [facility] Medical History (Updated 12/11/23 @ 09:30 [...] List clean-up per request of Phys. EHR [facility] Surgical History History of bladder suspension procedure Problem List clean-up per request of Phys. EHR Cmte H/O: hysterectomy Problem List clean-up per request of Phys. EHR Cmte History of appendectomy Problem List clean-up per request of Phys. [facility]HR [facility] History of heart artery stent Problem List clean-up per request of Phys. [facility]HR [facility] Family History (Updated 06/01/23 @ 08:45 by [...] DAILY 04/25/19 [History Confirmed 12/11/23] omega-3s 300 rw-rkk-ebe-other qslfm9h-bwwu oil 1,000 mg capsule ([place]-3 Fish Oil) 2 cap PO BID 04/25/19 [...] <Electronically signed by FERNY Mathews> 12/28/23 1122 [facility] Work Phone: 1(505) 155-815404-01-2024 Progress note Author Janell Mathews [facility] December 11, 2023 9:35amNote Date/TimeApr2023 9:35[place] [address] Wound Center Provider Note Signed Patient: Harman Mcleod MR#: [id number] : 1940 Acct:[id number] Age/Sex: 83 / F Copies to: MD Janell Oliver APRN~ HPI Date of Visit Date of Visit: Date of Service: 12/11/2023 Time of Service: 09:27 Narrative HPI: 12/11/23 Harman is an 83 year old presenting to [facility] wound care for an [...] present for the entire visit, she has [facility], the left leg will be treated with [...] bilateral lower leg ulcers Mode of Arrival/ Enterprise Software Engineer: Friend Assistive Device Used Today: Walker Lives with:: Significant Other Appetite Description: Within Normal Limits Who helps w/ dressing change?: Home Health Why Do You Need Help?: Can't Reach Ulcer, Limited mobility, Unsafe leave home byself and Taxing effort to leave home Smoking Status: Former smoker COUNT INCLUDES THE [facility] Medical History (Updated 12/11/23 @ 09:30 by Janell Mathews APRN) Leg ulcer, left Cataract Problem List clean-up per request of Phys. 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 [facility]HR [facility] Vaginal lesion Problem List clean-up per request of Phys. EHR Cmte PAD (peripheral artery disease) Problem List clean-up per request of Phys. EHR Cmte CAD (coronary artery disease) Problem List clean-up per request of Phys. EHR Cmte Dyslipidemia Problem List clean-up per request of Phys. EHR Cmte Hyperthyroidism Problem List clean-up per request of Phys. [facility]HR [facility] Diabetes mellitus Problem List clean-up per request of Phys. EHR Cmte Hypertension Problem List clean-up per request of Phys. EHR [facility] Surgical History History of bladder suspension procedure Problem List clean-up per request of Phys. EHR [facility] H/O: hysterectomy Problem List clean-up per request of Phys. EHR [facility] History of appendectomy Problem List clean-up per request of Phys. EHR [facility] History of heart artery stent Problem List clean-up per request of Phys. [facility]HR [facility] Family History (Updated 06/01/23 @ 08:45 by [...] DAILY 04/25/19 [History Confirmed 12/11/23] omega-3s 300 ld-ukd-xmz-other xqtna0s-qeho oil 1,000 mg capsule ([place]-3 Fish Oil) 2 cap PO BID 04/25/19 [...] Breakdown Bed Appearance: Epithelial Tissue or Bridge, [place] and Yellow Percent of Wound Bed Granulated/Red: [...] <Electronically signed by FERNY Mathews> 12/11/23 0935 [facility] Work Phone: [phone]) 384-399610-10-2023 Nurse Note* Lina Lopes MA - 06/20/2023 2:49 PM EDT Patient would like to know if she needs a mammogram? She was told in Oct that she would need one in6 months. Lina Lopes MA documented in this encounterAkron [facility]10[facility] History of Present illness Narrative* Winnie Farris PA-C - 06/20/2023 2:30 PM EDT Images from the original note were not included. PATIENT NAME: Harman Mcleod CLINIC NO.: [id number] ATTENDING PHYSICIAN: Wallace Stone MD DATE OF [...] Negative LVI, 2 SNL negative, ER and NJ >95% positive, Her2 IHC 1+ Treatment History: [...] Range Status 06/20/2023 4.8 % Final Abs Baker Date Value Ref Range Status 06/20/2023 0.49 [...] follow up. R Breast T1b,N0,M0- ER and NJ >95% positive and Her-2 IHC 1+ tumor post Lumpectomy and SNL 10/2022. Reviewed path and she elected not to proceed with XRT and started Arimidex in 11/2022. Continues to tolerate well. Mammogram in 07/2023 (order placed). See us in 4 months. Plan is for 5 years of AI therapy Osteoporosis- On Prolia started 08/[address] Perry Vulvar high grade dysplasia- Follows Sales Agent Protective Service Onc at [facility] R Leg swelling and pain and h/o PVD- Follows vascular HTN--managed by PCP Winnie Farris PA-C CC: MD Mateus Spicer MD documented in this encounterAkron [facility]09-21-2023 Evaluation note* Encounter Date Diagnosis Assessment [...] In addition I took her to the Com[facility] and performed a right iliac venogram which [...] offer her a second opinion at the [facility] vascular medicine program. She declined. I will see her as needed in the future. [facility] Other 06-29-2023 Evaluation note* Encounter Date Diagnosis [...] to call us with any concerns whatsoever. [facility] Other 06-06-2023 History of Present illness Narrative* Wallace Stone MD - 02/14/2023 10:37 AM EDT Images from the original note were not included. PATIENT NAME: Harman Mcleod CLINIC NO.: [id number] ATTENDING PHYSICIAN: Wallace Stone MD DATE OF [...] Negative LVI, 2 SNL negative, ER and NJ >95% positive, Her2 IHC 1+ Treatment History: [...] Range Status 02/14/2023 8.3 % Final Abs Baker Date Value Ref Range Status 02/14/2023 0.86 [...] follow up. R Breast T1b,N0,M0- ER and NJ >95% positive and Her-2 IHC 1+ tumor post Lumpectomy and SNL 10/2022. Reviewed path and she elected not to proceed with XRT and started Arimidex in 11/2022 and toleraing well. Plan for 5 years of therapy. Osteoporosis- On Prolia started 08/[address] Perry Vulvar high grade dysplasia- Follows Sales Agent Protective Service Onc at [facility] R Leg swelling and pain and h/o PVD- Follows vascular HTN Rash- refer to Derm Thank you for the kind referral. If there are any questions and or concerns please do not hesitate to contact me at [phone]. Wallace Stone MD Hematology/Medical Oncology [facility] I spent a total of 30 minutes on the date of the service which included preparing to see the patient, mrxc-hi-njze patient care, completing clinical documentation, obtaining and/or reviewing separately obtained history, performing a medically appropriate examination, counseling and educating the pat ient/family/caregiver, and ordering medications, tests, or procedures. CC: MD Mateus Spicer MD documented in this encounterAkron [facility]03-29-2023 Evaluation note* Encounter Date Diagnosis Assessment [...] her primary care provideras well as her lapper. We will continue to follow her along and see her again in a couple of months and see how she is doing with her pumps, conservative efforts, and weight management. She knows to call us in the meantime with any other additional concerns or complaints. [facility] Other 03-21-2023 [facility] Evaluation note* Encounter Date Diagnosis Assessment [...] specified soft tissue disorders (ICD-10 - M79.89) [facility] Other 03-08-2023 Miscellaneous Notes* Telephone Encounter - Adriana Pereira [facility] - 11/16/2022 8:40 AM EST Called Vascular office spoke with Jessy. They have received this referral and have patient scheduledwith Dr Gonzales on 11/23 @ 10:00. Adriana Burnham * Telephone Encounter - Kira Ko [facility] - 11/10/2022 9:38 AM EST Records faxed. * Telephone Encounter - Adriana Pereira [facility] - 11/10/2022 8:46 AM EST Janeth: Information ready for you. Ardiana Burnham * Telephone Encounter - Carlos Brooks - 11/09/2022 2:44 PM EST Vascular Consult [facility] Previous patient of Dr. Mendez 3 years or more. Janeth/Dudley: Can you please refer patient and follow up? Thanks! Carlos Brooks documented in this encounterAkron [facility]03-01-2023 History of Present illness Narrative* Wallace Stone MD - 11/09/2022 2:00 PM EST Images from the original note were not included. PATIENT NAME: Harman Mcleod CLINIC NO.: [id number] ATTENDING PHYSICIAN: Wallace Stone MD DATE OF SERVICE: November 09, [address] Banks referring provider defined for this encounter. here is an update on a follow up visit on female Harman Mcleod at the clinic 11/09/2022 Diagnosis: T1b, N0, M0- R breast, Tumor 9 mm, Grade 2, Margins negative, Negative LVI, 2 SNL negative, ER and NJ >95% positive, Her2 IHC 1+ Treatment History: [...] follow up. R Breast T1b,N0,M0- ER and NJ >95% positive and Her-2 IHC 1+ tumor post Lumpectomy and SNL 10/2022. Reviewed path and she may skip radiation and also discussed hormonal; therapy with an AI and she will start Arimidex. Discussed adverse events and she wishes to proceed. Osteoporosis- On Prolia started 08/[address] Perry Vulvar high grade dysplasia- Follows Sales Agent Protective Service Onc at [place] and next appointment 11/24/2022 CRI R Leg swelling and pain and h/o PVD- refer to vascular HTN Thank you for the kind referral. If there are any questions and or concerns please do not hesitate to contact me at [phone]. Wallace Stone MD Hematology/Medical Oncology [facility] [place] spent a total of 30 minutes on the date of the service which included preparing to see the patient, gypv-gq-obvf patient care, completing clinical documentation, obtaining and/or reviewing separately obtained history, performing a medically appropriate examination, counseling and educating the pat ient/family/caregiver, and ordering medications, tests, or procedures. CC: MD Mateus Spicer MD documented in this encounterAkron Children'[facility]02-08-2023 NoteOPERATIVE NOTE OPERATION DATE: 10/19/2022 PREOPERATIVE DIAGNOSIS: Right breast cancer. POSTOPERATIVE DIAGNOSIS: Right breast cancer. PROCEDURE: Needle localized right breast lumpectomy with sentinel lymph node biopsy. SURGEON: Iliana Gagnon M.D. ANESTHESIA: General laryngeal mask airway. CHIEF BUSINESS OFFICER: SADI Hammer ESTIMATED BLOOD LOSS: Less than [...] in good condition. CC: Mateus Perry M.D.[facility]01-31-2023 NoteEXAMINATION: XR CHEST 2 V HISTORY: Pre-surgery [...] authenticated by: ALFONSO GEORGE Date: 2022-10-11 12:11[facility]01-12-2023 History of Present illness Narrative* Marcin Nayak MD - 09/22/2022 11:38 PM EST Images from the original note were not included. Radiation Oncology - New Patient/Consult Note PATIENT NAME: Harman Mcleod PATIENT Signed: Marcin Nayak MD I spent a total of 60 minutes on the date of the service which included preparing to see the patient, cqwr-ra-jtpd patient care, and counseling and educating the patient/family/caregiver. This document has been created with the use of voice recognition technology. It may contain inaccuracies, misspellings, inaccurate syntax or inappropriate word context that are a result of the inadequacies/shortcomings of said technology/software. documented in this encounterAkron Children'[facility] Hospital01-12-2023 History of Present illness Narrative* Wallace Stone MD - 09/22/2022 5:10 PM EST Images from the original note were not included. PATIENT NAME: Harman Mcleod CLINIC NO.: [id number] ATTENDING PHYSICIAN: Wallace Stone MD DATE OF [...] provisional grade 1 through 2, ER and NJ greater than 95% positive, HER2/holden negative with an IHC score of 1+ and FISH negative at [facility]. This patient was subsequently referred to Dr. Iliana Gagnon for surgical consultation. Patient denies any previous history of abnormal mammograms and or breast biopsy. She has had a recent bone density in [place] and was diagnosed with osteoporosis and started on Prolia as well. Patient has a sister who was diagnosed with breast cancer at the age of 82 and her daughter diagnosed with breast cancer at the age of 37. She quit smoking approximately 4 years ago. 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 She [...] mouth daily at bedtime. Cut in half Cahdc-6-VQH-EPA-Fish Oil 1,000 mg (120 mg-180 mg) cap [...] ductal carcinoma, provisional grade 1-2, ER and NJ greater than 95% positive, HER2/holden negative with [...] number below. Wallace Stone M.D. Hematology/Medical Oncology [facility] [phone] CC: MD Mateus Spicer MD I spent a total of 60 minutes on the date of the service which included preparing to see the patient, fyee-oy-tijb patient care, completing clinical documentation, obtaining and/or reviewing separately obtained history, performing a medically appropriate examination, counseling and educating the pat ient/family/caregiver, ordering medications, tests, or procedures, and communicating with other HCPs (not separately reported). documented in this encounterAkron Children'[facility] Hospital01-12-2023 Miscellaneous Notes* Telephone Encounter - Heavenly [...] involved. Heavenly Wilkerson RN documented in this encounterAkron Children'[facility] Hospital12-30-2022 NoteChief Complaint consultation for right breast [...] biopsy that r evealed invasive ductal carcinoma, ER/NJ +; Her2 holden negative; patient denies change [...] IV prior to OR SCDs [place] [facility] [place] [facility] [place]ulatory Referral 2. Chronic anticoagulation (Z79.01: halfway (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) hold Eliquis 2 days prior to surgery, if ok with Cardiology. 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 Garza. documented in this encounterB[facility] Phone: 1(881) 459-538710-18-2022 Hospital Discharge instructions* Discharge Instructions* Brody Ken [...] call your doctor documented in this encounterBON [facility] Phone: 1(486) 382-446004-04-2022 History of Present illness Narrative* Brody Ken [...] Plunkett MD - 12/13/2021 2:12 PM EDT Sales Agent Protective Service Oncology Attending Note Patient seen and evaluated [...] chart for or 12/13/21 documented in this encounterCo[facility] Phone: 1(490) 492-527604-04-2022 Evaluation note* Diagnosis Vaginectomy w/ Cysto 12/13/21- Primary Other postprocedural status documented in this encounter [employer] Phone: 1(914) 867-745204-04-2022 Hospital Discharge instructions* Instructions* Brody Ken RN [...] of: May 19, 2021 Content Version: 13.2 [employer]. Care instructions adapted under license by [employer]. If you have questions about a medical condition or this instruction, always ask your healthcare professional. [employer] disclaims any warranty or liability for your [...] urinate call your doctor documented in this [facility] [employer] Work Phone: 1(569) 474-483803-28-2022 History of Present illness Narrative* YANA Wallis [...] Disease: Yes, stents x 3, Dr. Keyes ([facility]) Hypertension: yes Active smoker: Quit 2017, [...] pcp potassium 3.3,wbc 12.6 documented in this [facility] Services[facility] Phone: 1(915) 962-196503-25-2022 Hospital Discharge instructions* Instructions* Yoanna Diaz PA [...] drive you home after your procedure. Your driver messenger must be 18 years of age or [...] questions, call the Pre-Admission Testing Unit at [phone]. Day of Surgery/Procedure As a patient at [facility] you can expect quality medical and nursing care that is centered on your individual needs. Our goal is to make your surgical experience as comfortableas possible . Directions to the Surgery Center [facility] is located at [address] [place] [address]. Please pull into the Emergency parking lot and stop at the [employer] richards. We offer free food service associate service for all our surgery patients, if you choose not to have food service associate parking we have additional parking across the street.You will enter the facility following the [facility] sign. Please stop at the grazing examiner desk where you will be checked in by the staff. If you have any questions please call [phone]. Transportation after your procedure. You will need a friend or family member to drive you home after your procedure. Your driver messenger must be18 years of age or older [...] You may shave your face or neck. Selmer your teeth but do not swallow water. [...] or the day of surgery, please call [phone], or [phone] documented in this encounterCozy Cloud Phone: [phone]) 770-969010-05-2021 History of Present illness Narrative* Parvin Rogel RN - 06/15/2021 10:[address] Kamla gan, pt cleared for phase II * Alla Dickerson DO - 06/15/2021 9:42 AM EDT OB Resident Progress Note Patient may be discharged home once she has met criteria in the PACU. Please perfect serve or page RECORD MAKER resident listed below with any questions, concerns, or if patient has not met PACU discharge criteria in 2-3 hours. . Please page first. Alla Dickerson DO RECORD MAKER Resident PGY3 Pager: [phone] [facility] 06/15/2021, 9:42 AM documented in this Listen Up Phone: [phone]) 726-724710-04-2021 Hospital Discharge instructions* Instructions* Alla Dickerson DO [...] by your physician documented in this [facility] Work Phone: [phone]) 861-503609-01-2021 Hospital Discharge instructions* Instructions* Na Cabezas APRN - OPERATING ENGINEER APPRENTICE - 05/12/2021 Pre-operative Instructions Please arrive at [...] public transportation ALONE is not acceptable. -Your driver messenger must be 18 years of age or [...] Day of Surgery/Procedure As a patient at [facility] you can expect quality medical and nursing care that is centered on your individual needs. Our goal is to make your surgical experience as comfortableas possible . Directions to the Surgery Center [facility] is located at [address] [place] [address]. Please pull into the Emergency/Surgery Center parking lot and stop at the [employer] richards. We offer free food service associate service for all our surgery patients, if you choose not to have food service associate parking we have additional parking across the [...] pharmacy bottles in a zip lock bag. Selmer your teeth but do not swallow water. [...] DAY OF your surgery, you may call [phone] documented in this [facility] Phone: [phone]) 101-513409-01-2021 History of Present illness Narrative* Mandy Baker RN - 05/12/2021 1:30 PM EDT Medical clearance obtained for OR on 05/18/2021. * Na Cabezas APRN - OPERATING ENGINEER APPRENTICE - 05/12/2021 1:30 PM EDT Anesthesia Focused [...] (coronary artery disease) CHF (congestive heart failure) ([facility]) COPD (chronic obstructive pulmonary disease) ([facility]) Diabetes mellitus (HCC) Gastritis GERD (gastroesophageal reflux disease) History of stent insertion of renal artery Hx of blood clots Hyperlipidemia Hypertension IBS (irritable bowel syndrome) Pedal edema Pneumonia PVD (peripheral vascular disease) ([facility]) Thyroid disease Under care of team 05/12/2021 dr Hayden velez [place]-last visit apr 2021 Under care of team 05/12[facility] Varicose vein of leg [...] outside provider), cardiac stentx 3. Last saw lapper in December 2020. On Eliquis and aspirin prescribed from her lapper. Medical or cardiac clearance ordered: cardiac FERNY Andres CNP 05/12/21 2:43 PM documented in this encounterCozy Cloud Phone: evaluation + Plan noteGeneral Surgery [facility] [employer] Evaluation + Plan note Future Appointments Appointment Date:11/08/2022 02:00:00 PM Scheduled Provider:Iliana GAGNON MD Location:[facility] Appointment Type:[place] [id number] General Surgery [facility] Evaluation + Plan note Future Appointments Appointment Date:11/22/2022 01:40:00 PM Scheduled Provider:Iliana GAGNON MD Location:[facility] Appointment Type:[place] [address] General Surgery [facility] [employer] Evaluation note* Diagnosis Pre-op chest exam Pre-operative respiratory examination documented in this encounter [employer] Phone: evalwrelng note* Diagnosis S/p Partial vaginectomy with Ultrasonic Scalpel 06/15/21- 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, 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 documented in this encounter [employer] Phone: evalvrtwzu note* Diagnosis Pre-op chest exam Pre-operative respiratory examination documented in this encounter [employer] 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 documented in this encounter ENIO BEVERLY [employer] Phone: Evaluation note* Diagnosis 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, estrogen receptor positive (HCC)- Primary [facility]* Diagnosis 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 breast in female, estrogen receptor positive (HCC)- Primary [facility]* Diagnosis 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, estrogen receptor positive (HCC)- Primary Claudication in peripheral vascular disease (HCC) Peripheral vascular disease, unspecified documented in this encounter [facility] noteNo assessment information [facility] Work Phone: Evaluation noteNo InformationNort [facility] 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, estrogen receptor positive (HCC)- Primary Rash Rash and other nonspecific skin eruption Other eczema Stage 3a chronic kidney disease (HCC) documented in this encounter [facility]* Diagnosis 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, estrogen receptor positive (HCC)- Primary Stage 3a chronic kidney disease (HCC) documented in this encounter [facility]* Diagnosis Onset Date Resolution Status Altered mental status acuteDiabetes mellitusacuteEdema of both lower legsacuteInflammationacuteLeg ulcer, leftacuteLeg wound, rightacuteOpen wound of left thighacuteUses walker acuteVaricose veins of both legs with edemaacute [facility] Work Phone: Evaluation note* Diagnosis Onset Date Resolution Status Altered mental status acuteDiabetes mellitusacuteEdema of both lower legsacuteInflammationacuteLeg ulcer, leftacuteLeg wound, rightacuteOpen wound of left thighacutePAD (peripheral artery disease)acuteUses walkeracuteVaricose veins of both legs with edemaacute [facility] Work Phone: Evaluation note* Diagnosis Hav (hallux abducto valgus), left- Primary Venous insufficiency Unspecified venous (peripheral) insufficiency Acquired deformity of left toe 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 ([facility]) Diabetes mellitus due to underlying condition with diabetic polyneuropathy, 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 contemporary or 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 ([facility]) Pain due to onychomycosis of toenails of both feet documented [facility] encounter [facility]* Diagnosis 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)- Primary Diabetes mellitus due to underlying condition with diabetic polyneuropathy, 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 contemporary or 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 (CMS/HCC) Pain due to onychomycosis of toenails of both feet Venous insufficiency Unspecified venous (peripheral) insufficiency Neoplasm of uncertain behavior of skin documented in this encounter [facility]* Diagnosis 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, estrogen receptor positive (HCC)- Primary documented in this encounter [facility]* Diagnosis 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, estrogen receptor positive (HCC)- Primary Stage 3a chronic kidney disease (HCC) documented in this encounter [facility]* Diagnosis Neoplasm of uncertain behavior of skin- Primary Diabetes mellitus due to underlying condition with diabetic polyneuropathy, 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 contemporary or 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 (CMS/HCC) Pain due to onychomycosis of toenails of both feet Venous insufficiency Unspecified venous (peripheral) insufficiency 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) documented in this encounter [facility] note* Diagnosis Neoplasm of uncertain behavior of skin- Primary Diabetes mellitus due to underlying condition with diabetic polyneuropathy, 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 contemporary or 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 (HCC) Pain due to onychomycosis of toenails of both feet Venous insufficiency Unspecified venous (peripheral) insufficiency Acquired deformity of left toe documented in this encounter [facility] Healthcare[facility] note* Diagnosis Onset Date Resolution Status Admit Date Osteoarthritis of right hip acuteNovember 2024 10:55am [facility] Work Phone: History general Narrative - Reported* Type Description Date Medical History DIABETES Medical HistoryHTNMedical HistoryASTHMAMedical History3 HEART STENT AND 1 LEG Medical HistoryHYPERLIPIDEMIAMedical HistoryHYPOTHYROIDMedical HistoryPAD Surgical HistorySTENT PLACEMENTSSurgical HistoryPSEUDO ANURYSMSurgical History BLADDER SUSPENSIONSurgical HistoryHYSTERECTOMYSurgical HistoryRLE & RT RENAL DSA'S, ANGIOPLASTIES & [id number] [facility] Other History general Narrative - Reported* Type Description Date Medical History DIABETES Medical HistoryHTNMedical HistoryASTHMAMedical History3 HEART STENT AND 1 LEG Medical HistoryHYPERLIPIDEMIAMedical HistoryHYPOTHYROIDMedical HistoryPAD Surgical HistorySTENT PLACEMENTSSurgical HistoryPSEUDO ANURYSMSurgical History BLADDER SUSPENSIONSurgical HistoryHYSTERECTOMYSurgical HistoryRLE & RT RENAL DSA'S, ANGIOPLASTIES & [id number] HistoryVAGINAL ABLASION OF CANCER CELLS [facility] Other Hospital course Narrative No data available for this section [facility] Discharge instructions No data available for this section [facility] Progress note No data available for this section [facility] Reason for referral (narrative) Referred by: Iliana GAGNON MD Referred by: Iliana GAGNON MD General Surgery [facility] Renkcp for referral (narrative)* Diagnostic Procedure Only (Routine) - Pending ReviewSpecialtyDiagnoses / ProceduresReferred By ContactReferred To ContactBR IMAGING Diagnoses 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, estrogen receptor positive (HCC) Procedures MAGNO DIAGNOSTIC BILATERAL DIAGNOSTIC MAMMOGRAPHY COMPUTER-AIDED DETCJ Winnie Farris PA-C [address] [place] [address] [place] [address] [facility] [address] [place] [phone] Referral IDStatusReasonStart DateExpiration DateVisits RequestedVisits [id number] Review Auto-Generated Referral / [facility] (narrative)No reason for referral information [facility] Work Phone: Reason for visit Narrative* Auth/CertSpecialty Diagnoses / ProceduresReferred By ContactReferred To Contact Diagnoses Vaginal dysplasia VAGINAL DYSPLASIA Procedures [place] OFFICE/OUTPT VISIT,PROCEDURE ONLY [place] COMPLETE REMOVAL OF VAGINA WALL [place] CYSTOURETHROSCOPY CYSTOSCOPY, VAGINECTOMY Emma Garza MD [address] [facility] [address] [place] [address] Immediately [address] [place] [address] Referral IDStatusReasonStart DateExpiration DateVisits RequestedVisits [id number] [employer] Phone: Summary Purpose Family History No Family [...] lead Latonia Burks PA-C [address] [facility] [address] [place] [address] SpecialtyDiagnoses / ProceduresReferred By ContactReferred To ContactCardiology Diagnoses Pre-op chest exam Procedures EKG 12 lead Kimmie, Latonia, PA-C [address] [address] [place] [address] Referral IDStatusReasonStart DateExpiration DateVisits RequestedVisits [id number] / Procedures Referred By ContactReferred To ContactVascular Surgery Diagnoses Claudication in peripheral vascular disease (HCC) Procedures CONSULT TO VASCULAR SURGERY OFFICE/OUTPATIENT [facility] 60-74 MINUTES Wallace Stone MD [address] [place] [address] Referral IDStatusReasonStart DateExpiration DateVisits RequestedVisits [id number] PCP Requested Referral /[id number] / ProceduresReferred By ContactReferred To ContactDermatology Diagnoses Rash Other eczema Procedures CONSULT TO DERMATOLOGY OFFICE/OUTPATIENT [facility] 60-74 MINUTES Wallace Stone MD [address] [place] [address] Referral IDStatusReasonStart DateExpiration DateVisits RequestedVisits [id number] PCP Requested Referral / Chief Complaint and [...] and content) DATE CREATED AUTHOR 02/05/2021 [facility] DATE CREATED AUTHOR AUTHOR'S ORGANIZ ATION 01/22/2023 [facility] DATE CREATED AUTHOR AUTHOR'S ORGANIZ ATION 06/23/2023 [facility] DATE CREATED AUTHOR AUTHOR'S ORGANIZ ATION 07/13/[address] [facility] DATE CREATED AUTHOR AUTHOR'S ORGANIZ ATION 10/10/2024 [facility] DATE CREATED AUTHOR AUTHOR'S ORGANIZ ATION 06/19/2025 [facility] DATE CREATED AUTHOR AUTHOR'S ORGANIZ ATION 07/05/2025 [facility] DATE CREATED AUTHOR AUTHOR'S ORGANIZ ATION 07/19/2025 [facility] DATE CREATED AUTHOR AUTHOR'S ORGANIZ ATION 07/24/2025 [facility] Reason for Visit (unrecogniz ed section and content) StatusReasonSpecialtyDiagnoses / ProceduresReferred By ContactReferred To Contact Diagnoses 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 Procedures NJ REMOVE VAGINA WALL, PARTIAL NJ COLPOSCOPY,CERVIX W/ADJ VAGINA PARTICAL VAGINECTOMY WITH ULTRASONIC SCAPEL VAGINAL COLPOSCOPY WITH MICROSCOPE Kin Abarca MD [address] [facility] [address] [place] [address] [facility] SpecialtyDiagnoses / ProceduresReferred By ContactReferred To Contact Diagnoses Vaginal dysplasia VAGINAL DYSPLASIA Procedures [place] OFFICE/OUTPT VISIT,PROCEDURE ONLY [place] DESTRUCT,VAGINAL LESION(S),SIMPLE CO2 LASER VAPORIZATION OF LESIONS ([facility] CONF# [id number] - JEREMIAS) Emma Garza MD [address] [facility] [address] [place] [address] [facility] [address] [place] [address] Referral IDStatusReasonStart DateExpiration DateVisits RequestedVisits [id number] CoordinationSurgery updateReasonComments ConsultBreast CancerReasonCommentsBreast CancerReasonCommentsBreast CancerReason CommentsReferral [...] topically daily. 25 g bacitracin-polymyxin b (POLYSPORIN) 500-44433 UNIT/GM ointment Apply topically 2 times daily. [...] as needed 15 g bacitracin-polymyxin b (POLYSPORIN) 500-20729 UNIT/GM ointment Apply topically 2 times daily. [...] DateEnd Date Mateus Perry MD [address] [place] [facility] [place] [address] PCP - GeneralFamily Medicine03/04/21Team MemberRelationshipSpecialtyStart DateEnd Date Mateus Perry MD [address] [place] [facility] [place] [address] PCP - GeneralFamily Medicine03/04/21Team MemberRelationshipSpecialtyStart DateEnd Date Mateus Perry MD [address] [place] [facility] [place] [address] PCP - GeneralFamily Medicine03/04/21Team MemberRelationshipSpecialtyStart DateEnd Date Mateus Perry MD [address] [place] [facility] [address] PCP - GeneralFamily Medicine03/04/21Team MemberRelationshipSpecialtyStart DateEnd Date Mateus Perry MD PCP - GeneralFamily Medicine01/05/17Team MemberRelationshipSpecialtyStart DateEnd Date Mateus Perry MD PCP - GeneralFamily Medicine01/05/17Team MemberRelationshipSpecialtyStart DateEnd Date Mateus Perry MD PCP - GeneralFamily Medicine01/05/17Team MemberRelationshipSpecialtyStart DateEnd Date Mateus Perry MD PCP - GeneralFamily Medicine01/05/17Team MemberRelationshipSpecialtyStart DateEnd Date [facility]us Perry [facility]/05/17Team MemberRelationshipSpecialtyStart DateEnd Date Mateus Perry MD PCP - [facility]01/05/17Team MemberRelationshipSpecialtyStart DateEnd Date Mateus Perry MD [address] [place] [address] PCP - [facility]03/04/21 Team Status: Inactive Member Role Status Nila Perry MD Primary Care Provider Active Gemma Draper ProviderActiveTeam MemberRelationship SpecialtyStart DateEnd Date Mateus Perry MD PCP - [facility]01/05/17Team MemberRelationshipSpecialtyStart DateEnd Date Mateus Perry MD PCP - [facility]01/05/17 Team Status: Inactive Member Role Status Nila Perry MD Primary Care Provider Active Start: May 01, 2024 End: May 01, 2024Mattmonty Gonzales MDAttraghav ProviderActiveStart: May 01, 2024 End: May 01, 2024Team MemberRelationshipSpecialtyStart DateEnd Date Mateus Perry MD [address] [place] [facility] [address] PCP - [facility]02/14/24Team MemberRelationshipSpecialtyStart DateEnd Date Mateus Perry MD [address] [place] [address] PCP - GeneralFamily Medicine02/14/24Team MemberRelationshipSpecialtyStart DateEnd Date Mateus Perry MD [address] [facility] [place] [address] PCP - GeneralFamily Medicine02/14/24Team MemberRelationshipSpecialtyStart DateEnd Date Mateus Perry MD [address] [facility] [place] [address] PCP - Generalmily Medicine02/14/24Team MemberRelationshipSpecialtyStart DateEnd Date Mateus Perry MD PCP - GeneralFamily Medicine01/05/17Team MemberRelationshipSpecialtyStart DateEnd Date Mateus Perry MD PCP - GeneralFamily Medicine01/05/17Team MemberRelationshipSpecialtyStart DateEnd Date Mateus Perry MD PCP - GeneralFamily Medicine01/05/17Team MemberRelationshipSpecialtyStart DateEnd Date Mateus Perry MD [address] [facility] [place] [address] PCP - Generalmily Medicine02/14/24 Team Status: Inactive [...] or prosecute any alcohol or drug abuse patient.[facility] the event this information is protected by the Federal Confidentiality of Alcohol and Drug Abuse Patient Records regulations: The Federal rules restrict any use of the information to criminally investigate or prosecute any alcohol or drug abuse patient.[facility] HospitalIn the event this information is protected by the Federal Confidentiality of Alcohol and Drug Abuse Patient Records regulations: The Federal rules restrict any use of the information to criminally investigate or prosecute any alcohol or drug abuse patient.[facility] HospitalIn the event this information is protected by the Federal Confidentiality of Alcohol and Drug Abuse Patient Records regulations: The Federal rules restrict any use of the information to criminally investigate or prosecute any alcohol or drug abuse patient.[facility] HospitalIn the event this information is protected by the Federal Confidentiality of Alcohol and Drug Abuse Patient Records regulations: The Federal rules restrict any use of the information to criminally investigate or prosecute any alcohol or drug abuse patient.[facility] HospitalIn the event this information is protected by the Federal Confidentiality of Alcohol and Drug Abuse Patient Records regulations: The Federal rules restrict any use of the information to criminally investigate or prosecute any alcohol or drug abuse patient.[facility] HospitalIn the event this information is protected by the Federal Confidentiality of Alcohol and Drug Abuse Patient Records regulations: The Federal rules restrict any use of the information to criminally investigate or prosecute any alcohol or drug abuse patient.[facility] HospitalIn the event this information is protected by the Federal Confidentiality of Alcohol and Drug Abuse Patient Records regulations: The Federal rules restrict any use of the information to criminally investigate or prosecute any alcohol or drug abuse patient.[facility] HospitalIn the event this information is protected by the Federal Confidentiality of Alcohol and Drug Abuse Patient Records regulations: The Federal rules restrict any use of the information to criminally investigate or prosecute any alcohol or drug abuse patient.[facility] HospitalIn the event this information is protected by the Federal Confidentiality of Alcohol and Drug Abuse Patient Records regulations: The Federal rules restrict any use of the information to criminally investigate or prosecute any alcohol or drug abuse patient.[facility] HospitalIn the event this information is protected by the Federal Confidentiality of Alcohol and Drug Abuse Patient Records regulations: The Federal rules restrict any use of the information to criminally investigate or prosecute any alcohol or drug abuse patient.[facility] Goals (unrecognized section and content) Goals [...] BE BASED ON THE PRIMARY CLINICAL RECORDS. [employer] [facility]. provides no warranty or guarantee of the accuracy or completeness of information in this document.
[2025-08-18 08:50] VITALS: BP 142/87; PULSE 74; TEMP 36.2; O2SAT 97
[2025-08-18 09:36] VITALS: BP 156/81; BP 181/78; PULSE 74; PULSE 79; O2SAT 97; O2SAT 98
[2025-08-18] MEDS: LIDOCAINE HCL 2% 400 MG/20 ML MDV INJ (09:39)
[2025-08-18] MEDS: IOHEXOL 240 MG/ML - 10 ML VIAL INJ (09:39)
[2025-08-18] MEDS: BUPIVACAINE HCL 0.25% PF 25 MG/10 ML VIAL 4 ML INJ (09:39)
[2025-08-18] MEDS: METHYLPREDNISOLONE ACETATE 40 MG/ML VIAL INJ (09:40)
--- NOTE | 2025-08-18 09:40 | W.PM.PROCNOT ---
Date of procedure: 08/18/25 Pre-op diagnosis: Pain due to right hip osteoarthritis Post-op diagnosis: same as pre-op Procedure: Procedure: Right hip injection Medications: Bupivacaine 0.25% 4cc, depomedrol 40mg I explained the details of the procedure to the patient including the risks, benefits and alternatives. We had an informed discussion and the patient verbalized understanding and signed the consent form. All questions were answered appropriately.? A time out was performed.? After obtaining a comfortable supine position, the skin overlying the hip, subtrochanteric region, and joint space were prepped with alcohol. A sterile syringe containing the above medication was attached to a 25 guage, 3.5 inch spinal needle under strict aseptic technique. X ray was used to identify the joint space and the femoral neck on the right side.? The needle was than advanced through the subcutaneous tissue after local injection of 1% lidocaine.? The contents of the syringe were gently injected without any resistance into the joint space after contrast (isovue) outlined the appropriate area. The needle was removed and pressure was applied to the injection site to decrease the incidence of ecchymosis and hematoma formation.? A sterile bandage was applied. Post procedural instructions were given to the patient. Anesthesia: Local Surgeon: Jefferson Farmer Pathology: none sent Condition: stable Disposition: no change
== END 2025-08-18 09:48 | disposition home or self-care (01) ==
PROVIDERS: PCP Family Medicine; Visit Provider Anesthesiology
DX: M16.11 Unilateral primary osteoarthritis, right hip (principal); G89.29 Other chronic pain; E11.8 Type 2 diabetes mellitus with unspecified complications; Z79.85 Long-term (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 injectable non-insulin antidiabetic drugs
CPT/HCPCS: 20610; 77002; J0665; J1010; Q9966